=== PATIENT | male | born 1955 | race Caucasian/White ===

== ENCOUNTER → 2016-08-04 | Outpatient (REF) | payer MEDICARE ==
[~2016-08-04] MED LIST: /GLIP10TAB PO; /LINE60TA PO; /METO25TAB PO; /PRAV20TA PO; AMOX875T19 PO; AQUAOI TOP; ASPI1TAB PO; ASPI81TA7 PO; BACT800T5 PO; CEFD1CAP8 PO; DOCU10ELUD PO; FENT10PA TD; FENT50DI21 TD; FISH1000 PO; FISH1200 PO; GABA-279 PO; GABA400C PO; GABA600T PO; GABA800T PO; GLIP10TA58 PO; HUMA100I SC; HYDR-3713 PO; INSUHUMDS SC; INSULANT SC; INVA1INJ IV; KEFL500C7 PO; LEVO500T PO; LIDO4CRE2 TOP; LISI10TA4 PO; LISI5TAB PO; LORTTAB5 PO; METF1000 PO; METO25TAB PO; NIAC1TAB5 PO; NIAS1000 PO; NORC5TAB PO; OXYC60TA8 PO; PERCOCET PO; PRAV1TAB39 PO; SENO8.6T9 PO; TEFL600I IV; TRAV0.00 OU; TRAV04OPD OU; TRIA0.022 TOP; TRIL135C PO; VICOBULK PO; VITMTA PO; niaspan PO
== END ==
LOC: M LAB REF 16:35
PROVIDERS: ATTEND Surgery
DX: C44.519 Basal cell carcinoma of skin of other part of trunk (principal)

== ENCOUNTER → 2016-08-22 | Outpatient (REF) | payer MEDICARE | LOC: M LAB REF 16:21 | PROVIDERS: ATTEND Surgery | DX: E11.621 Type 2 diabetes mellitus with foot ulcer (principal) ==

== ENCOUNTER → 2016-09-26 | Outpatient (CLI) | payer MEDICARE ==
--- NOTE | 2016-09-29 23:52 | ECWPNPC ---
PATIENT NAME: DIANA OLIVERA : 1955 GENDER: MALE VISIT DATE: 09/26/2016 DISCHARGE DATE: 09/26/16 1452 VISIT LOCKED DATE TIME: PHYSICIAN: MARY MATA RESOURCE: MARY MATA REASON FOR APPOINTMENT 1. CHRONIC PAIN HISTORY OF PRESENT ILLNESS NEW PATIENT CONSULT: WHEN DID YOUR PAIN FIRST START? . BRIEFLY DESCRIBE HOW YOUR PAIN STARTED? . HOW DOES YOUR PAIN CHANGE WITH TIME? . DOES YOUR PAIN AWAKEN YOU FROM SLEEP? . HOW MANY HOURS OF SLEEP DO YOU NORMALLY GET? . ANY DIAGNOSTIC TESTING? . FACILITY WHERE TESTS WERE DONE? ____. PAIN TREATMENT TREATMENT YES CANCER HAVE YOU EVER HAD ANY TYPE OF CANCER?NO NO. PAIN SCREENING: PATIENT HAS A COMPLAINT OF ACUTE OR CHRONIC PAIN YES FALL RISK SCREENING: SCREENING :NO FALLS IN THE PAST YEAR FLEMING INVENTORY: QUESTIONNAIRE ASSESSEDTBD SCORE VALUE CALCULATED TBD TODAY'S VISIT: NOTES: PT REFFERREDBY DR DOM ESPINOSA FOR EVALUATION AND TREATMENT OF CHRONIC PAIN. HAS BEEN ON DURAGESIC PATCH FOR 10-15 YEARS. AREAS OF PAIN ARE LEFT HIP, BOTH LOWER EXTREMITIES FROM OPEN WOUNDS FROM DERMATITIS. LEFT HIP IS FUSED IN OUTWARD POSITION. IS HAVING ANTERIOR NECK/CHEST WALL PAIN AND BOTH HANDS. HAS OPEN WOUND IN LEFT KNEE. HAD PREVIOUSLY BEEN ON OXYCONTIN AND HYDROCODONE AND FENTANYL 100MCG/72 HOURS. . MEDS HAVE BEEN WEANED AND CAN NO FUNCTION BEFORE.HAD PREVIOUSLY SEEN DR MAYA FOR HIS HIP WHO WANTED ADDITIONAL FILMS WHICH WERE NOT APROVED. HAS BEEN FOLLOWING WITH DR HOLGUIN IN [facility] FOR VASCULAR ISSUES. NEEDS ANOTHER STENT ON LEFT. PAIN MEDS WERE DECREASED IN [place] DUE TO INSURANCE ISSUES. RATES PAIN TODAY 9/10.DESCRIBES PAIN CONSTANT , ACHING, BURNING, TENDER AND SORE WITH INTERRITANT SHARP AND STABBING PAIN PARTICULARLY IN LEFT LEG. BRINGS PHOTOS OF HIS LEG WOUNDS TODAY AND WE NOTE THATHIS LEFT LEFT DRESSING IS SATURATED WITH SEROUS DRAINAGE.. CURRENT MEDICATIONS TAKING DURAGESIC-100 100 MCG/HR PATCH 72 HOUR 1 PATCH TO SKIN TRANSDERMAL TAKING TRILIPIX 135 MG CAPSULE DELAYED RELEASE 1 CAPSULE ORALLY ONCE A DAY TAKING TRAVATAN Z 0.004 % SOLUTION 1 DROP INTO AFFECTED EYE IN THE EVENING OPHTHALMIC ONCE A DAY TAKING STOOL SOFTENER 100 MG CAPSULE 1 CAPSULE NEEDED ORALLY ONCE A DAY TAKING FISH OIL 1200 MG CAPSULE 1 CAPSULE ORALLY ONCE A DAY TAKING GABAPENTIN 800 MG TABLET 1 TABLET ORALLY THREE TIMES A DAY TAKING PRAVACHOL 20 20 MG TABLET ORAL DAILY TAKING LISINOPRIL 10 10 MG TABLET 1 TABLET ORAL DAILY TAKING METOPROLOL TARTRATE 25 MG TABLET 1 TABLET WITH FOOD ORALLY TWICE A DAY TAKING NIASPAN ER 1000 MG 1 TAB ORAL DAILY TAKING MULTIVITAMINS 1 OTC DIRECTED ORALLY DAILY, NOTES: NOT TAKING TAKING SANTYL 250 UNIT/GM OINTMENT 1 APPLICATION TO AFFECTED AREA EXTERNALLY ONCE A DAY TAKING LIDOCAINE 4 % CREAM DIRECTED EXTERNALLY TWICE DAILY TAKING AQUAPHOR STANDARD OINTMENT DIRECTED EXTERNALLY BID, NOTES: NOT TAKING TAKING GLIPIZIDE XL 10 MG TABLET EXTENDED RELEASE 24 HOUR 1 TABLET ORALLY TWICE DAILY TAKING METFORMIN HCL 1000 MG TABLET 2 TABS ORALLY TWICE A DAY TAKING LANTUS 100 UNIT/ML SOLUTION 80 UNITS SUBCUTANEOUS TWICE DAILY, DOSED TO BS READINGS TAKING HUMALOG 100 UNIT/ML SOLUTION 12 UNITS SUBCUTANEOUS S/S COVERAGE, NEEDED TAKING ASPIR-81 81 MG TABLET DELAYED RELEASE 1 TABLET ORALLY TWICE A DAY TAKING LIDOCAINE 4 % CREAM DIRECTED EXTERNALLY TAKING OXYCODONE HCL 10 MG TABLET 1 TABLET NEEDED ORALLY TWICE DAILY DISCONTINUED FLUOCINONIDE 0.05 % OINTMENT DIRECTED EXTERNALLY DAILY DISCONTINUED CEFDINIR 300 MG CAPSULE 1 CAPSULE ORALLY EVERY 12 HRS DISCONTINUED HYDROCODONE-ACETAMINOPHEN 5-325 MG TABLET 1 TABLET NEEDED ORALLY THREE TIMES DAILY DISCONTINUED CLOBETASOL PROPIONATE 0.05 % SOLUTION 1 APPLICATION TO SCALP EXTERNALLY ONCE A DAY DISCONTINUED FLUOCINOLONE ACETONIDE 0.025 % OINTMENT 1 APPLICATION TO AFFECTED AREA NEEDED EXTERNALLY ONCE DAILY, TAPERING TO EVERY OTHER DAY, NOTES: NOT TAKING DISCONTINUED OXYCONTIN 60 MG TABLET ER 12 HOUR ABUSE-DETERRENT 1 TABLET ORALLY EVERY 12 HRS MEDICATION LIST REVIEWED AND RECONCILED WITH THE PATIENT PAST MEDICAL HISTORY INSULIN-DEPENDENT DIABETES UNCONTROLLED LEFT FOOT OSTEOMYELITIS WITH GANGRENE CULTURE POSITIVE FOR MRSA AND ESCHERICHIA COLI HYPERTENSION HYPERCHOLESTEROLEMIA TOBACCO ABUSE GLAUCOMA 10/02/2012 OSTEOMYELITIS OF LEFT GREAT TOE STATUS POST AMPUTATION DISCHARGED HOME ON 10/08 WITH DOXYCYCLINE FOR 10 DAYS CORONARY ARTERY DISEASE WITH STENT PLACEMENT 2001 [facility] / DR RAGLAND SLEEP APNEA OSTEOARTHRITIS LOW TESTOSTERONE DEGENERATIVE HIP DISEASE STENTS PLACED DERMATITIS HLA B27 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 SURGICAL HISTORY MELANOMA LEFT EYELID 1998 RIGHT SHOULDER ROTATOR CUFF REPAIR 1998 CARDIAC CATHERTIZATION, STENT PLACEMENT 2001 C-6 CORPECTOMY AND FUSION C-5, C-6 WITH FIBULAR STRUT GRAFT AND IN ANT-CER ANTERIOR CERVICAL PLATE 2002 LEFT FOOT, DIGITS 4, 5 2010 AMPUTATION LEFT FOOT, GREAT TOE 10/02/2012 LEFT FOOT BONE DEBRIDEMENT 12/19/2012 STENTS PLACED RIGHT COMMON AND EXTERNAL ILIAC, LEFT COMMON AND EXTERNAL ILIAC 02/09/2016 FAMILY HISTORY FATHER: , BRAIN TUMOR, LUNG CANCER BRAIN TUMOR, LUNG CANCER MOTHER: ALIVE 78 YRS SIBLINGS: 2 BROTHERS - MVA & DROWNING 2 BROTHER(S) , 2 SISTER(S) . 1DAUGHTER(S) - HEALTHY. . NO KNOWN FAMILY HISTORY OF ANY UROLOGICALLY RELATED DISEASES/CANCERS. FATHER- CARDIAC DISEASE, PULMONARY DISEASE, BRAIN CA, DM. SOCIAL HISTORY GENERAL: TOBACCO USE ARE YOU A:NONSMOKER ARE YOU A:CURRENT SMOKER HOW MANY CIGARETTES A DAY DO YOU SMOKE?6-10 HOW SOON AFTER YOU WAKE UP DO YOU SMOKE YOUR FIRST CIGARETTE?31-60 MIN HOW OFTEN DO YOU SMOKE CIGARETTES?EVERY DAY PATIENT COUNSELED ON THE DANGERS OF TOBACCO USE AND URGED TO QUIT:09/26/2016 ARE YOU INTERESTED IN QUITTING?NOT READY TO QUIT COUNSELED THE PATIENT ON SMOKING EFFECTS, EDUCATION [id number]/13/2017 BMI CARE GOAL FOLLOW-UP ABOVE NORMAL BMI FOLLOW-UPDIETARY MANAGEMENT EDUCATION, GUIDANCE, AND COUNSELING ALCOHOL SCREENING POINTS0 INTERPRETATIONNEGATIVE RECREATIONAL DRUG USE DRUG USE?NO CAFFEINE CAFFEINE USE?NO OCCUPATION: DISABLED. DIET: CARBOHYDRATE CONTROLLED, NO CONCENTRATED SWEETS., NO ADDED SALT. EXERCISE: NO REGULAR EXERCISE. MARITAL STATUS: . OTHERS AT HOME: SPOUSE. PETS: 1 CAT. SIKHISM: NO CHRISTIANITY BELIEFS THAT WOULD IMPACT HEALTH CARE. LANGUAGE: SAMI. LEARNING BARRIERS / SPECIAL NEEDS CHANGE FROM LAST VISIT?NO BARRIERS TO LEARNING?NO HEARING IMPAIRED?NO VISION IMPAIRED?YES :CORRECTIVE LENSES COGNITIVELY IMPAIRED?NO READINESS TO LEARN?YES LEARNING PREFERENCES?NO LEARNING CAPABILITIES PRESENT?YES EMOTIONAL BARRIERS?NO SPECIAL DEVICES?YES : PT USES A CANE AT ALL TIMES. NEEDS ASSISTANCE WITH HOME CARE.HAS HEARING AIDS. HAS NO TEETH. PSYCHOLOGICAL HX TREATMENTNO PAIN CLINIC PFS, CLERGY, PUBLIC HEALTH REFERRALS PFS REFERRAL NEEDED?NO CLERGY REFERRAL NEEDED?NO PUBLIC HEALTH REFERRAL NEEDED?NO WAS THE PROVIDER NOTIFIED OF ANY PERTINENT INFO?NO PATIENT: ____. ADVANCED DIRECTIVES HEALTH CARE PROXY?NO HCP PAPERS GIVEN TO PATIENT POWER OF GEOTECHNICAL LABORATORY TECHNICIAN?NO TRAVEL OUTSIDE US: NO TRAVEL OUTSIDE OF US IN THE LAST 21 DAYS. HOUSING: OWNS HOME. DOMESTIC VIOLENCE: NONE. HOSPITALIZATION/MAJOR DIAGNOSTIC PROCEDURE PANCREATITIS 2009 LEFT FOOT INFECTION 09/30/2012 LEFT FOOT INFECTION 01/16/2013 LEFT FOOT INFECTION 02/06/13 BLOOD TRANSFUSION 02/13/13 LEFT LEG INFECTION 11/06/15 LEG SWELLING JANUARY 2016 CELLULITIS AND PAIN 04/06/16 - 04/08/16 REVIEW OF SYSTEMS CONSTITUTIONAL: ANY CHANGE IN YOUR MEDICAL CONDITION? NO . CHILLS NO . FEVER NO . INFECTION: DO YOU HAVE NEW INFECTIONS? NO . DO YOU HAVE HISTORY OF MRSA? YES . MUSCULOSKELETAL: ANY NEW PATTERNS OF PAIN OR NUMBNESS? NO BUT DOES HAVE PESITANT NUMBNESS AND TINGING IN BOTH UPPER AND LOWER EXTREMITIES . SYTEMIC LUPUS NO . GASTROENTEROLOGY: GENERAL VERY FIRM ABD WALL - ABD HERNIA . ANY NEW CHANGE IN BOWEL CONTROL? NO . BARRETTS ESOPHAGUS NO . CIRRHOSIS NO . HEPATITIS NO . LIVER FAILURE NO . ACID REFLUX NO . UNEXPLAINED WEIGHT LOSS NO . GENITOURINARY: ANY NEW CHANGE IN BLADDER CONTROL? NO . IS THERE A CHANCE YOU COULD BE ? NO . HEMATOLOGY/LYMPH: DO YOU TAKE ANY BLOOD THINNERS? (FOR EXAMPLE- COUMADIN, PLAVIX, AGGRENOX, PLATEL, PRADAXA, OR XARELTO) NO . WHEN WAS YOUR LAST DOSE? DATE: TIME: . LOW PLATELET COUNT NO . SICKLE CELL DISEASE NO . VON WILLIEBRANDS NO . FACTOR V LEIDEN NO . THALLASEMIA NO . ANEMIA YES, HAD BLOOD TRANSFUSION POST OP . EASY BRUISING NO . NEUROLOGY: HAVE YOU FALLEN IN THE PAST 6 MONTHS? YES, USES CANE AT ALL TIMES. . ANY NEW EXTREMITY NUMBNESS OR WEAKNESS? YES, LOWER EXTREMITIES AND HANDS . HEAD INJURY NO . DEMENTIA NO . CEREBRAL PALSY NO . MULTIPLE SCLEROSIS NO . DIZZINESS NO . HEADACHE NO . STROKES NO . VERTIGO NO . CARDIOLOGY: DO YOU HAVE A PACEMAKER OR DEFIBRILLATOR? NO . ANGINA NO . HEART ATTACK NO . HEART SURGERY YES, HAS CARDIAC STENTS AND GROIN STENTS . CONGESTIVE HEART FAILURE/FLUID OVERLOAD NO . CHEST PAIN NO . HIGH BLOOD PRESSURE ON MEDICATION(S) . IRREGULAR HEART BEAT NO . RESPIRATORY: HAVE YOU BEEN SICK IN THE PAST WEEK? NO . FEVER NO . FLU LIKE SYMPTOMS? NO . CPAP NO, BUT HAS CLAUDIA . BYPAP NO . ASTHMA NO . EMPHYSEMA NO . CHRONIC LUNG DISEASES NO . SHORTNESS OF BREATH ON EXERTION NO . DO YOU USE ANY TYPE OF TOBACCO (SMOKE, SMOKELESS, CHEW)? NO . COUGH NO . SNORING NO . INTEGUMENTARY: DO YOU HAVE ANY RASHES OR OPEN SORES? YES, HAS OPEN WOUNDS ON BOTH LEGS WRAPPED AT PRESENT TIME SEES DR WHALEN. . ALLERGIC/IMMUNO: ARE YOU ALLERGIC TO SHELLFISH OR IV DYE? NO . ANY NEW ALLERGIES? NO . PSYCHIATRIC: DO YOU HAVE THOUGHTS OF HURTING YOURSELF OR SOMEONE ELSE? NO . ARE YOU ABUSED, NEGLECTED, OR IN AN UNSAFE ENVIRONMENT? NO . ENDOCRINOLOGY: ARE YOU DIABETIC? YES, INSULIN DEPENDANT BS LOW IN AM, 200'S ABOUT 1/WEEK.&NBSP;. THYROID DISORDER &NBSP;&NBSP; NO&NBSP;. OTHER: DO YOU NEED ANY PRESCRIPTIONS? NO . IF YES, PLEASE LIST: ____ . ANY NEW PROBLEMS WITH YOUR MEDICATIONS? NO . WHEN DID YOU LAST EAT? ____ . WHEN DID YOU LAST DRINK? ____ . WHAT DID YOU LAST DRINK? ____ . NAME OF PERSON DRIVING YOU HOME? ____ . DO YOU HAVE ANY OTHER QUESTIONS OR CONCERNS YES, CONCERNED WITH COSTS OF MEDICATIONS. WOULD LIKE TO HAVE [facility] PATIENT'S ASSISTANCE PROGRAM INFORMATION. PAPERS WERE GIVEN PATIENT.&NBSP;. PSYCHOLOGY: DEPRESSION DOES NOT FEEL DEPRESSED AND IS BEGINNING TO HAVE HELP FROM OTHERS . REVIEWED BY: PROVIDER: MARY MATA FIREPROOF DOOR MAKER . VITAL SIGNS WT 230.8 LBS, HT 71 IN, BMI 32.19 INDEX, BP 138/80 MANUAL, HR 109 /MIN, RR 16 /MIN, TEMP 96.6 F, OXYGEN SAT % 98, NA INITIALS TL 1314, REVIEWED BY: CM. EXAMINATION GENERAL EXAMINATION: GENERAL APPEARANCE:CHRONICALLY ILL APPEARING. PSYCHALERT , ORIENTED X 3 , APPROPRIATE MOOD AND AFFECT , GOOD EYE CONTACT. HEENT:NORMOCEPHALIC, NO LYMPHADENOPATHY, NO THYROMEGY. FULL KIRK. LUNGS:CLEAR TO AUSCULTATION BILATERALLY, SOMEWHAT DECREAASED AT BASES. HEART:HEART RATE REGULAR, 1/6 MURMUR HEARD OVER LEFT CHEST WALL., NO CAROTID BRUIT. ABDOMEN:THIN SKINNED, TOUGH FIBROUS TISSUE NOTED. , NOT TENDER, BOWEL SOUNDS: NORMOACTIVE. MUSCULOSKELETAL:POINT TENDERNESS OVER LEFT SACRUM. NO PARTICULAR PAIN OVER TROCANTERS. LEFT HIP VERY STIFF, POOR MOBILITY. POOR QUAD FLEXION. DRESSING INTACT OVER BILATERAL LOWER EXTREMITIES, SATURATED WITH CLEAR FLIUD. NO ODOR. ABLE TO MOVE INDEPENDANTLY FROM WHEELCHAIR TO EXAM TABLE - VERY POOR BALANCE. PERIPHERAL PULSES:UNABLE TO PALPATE. NEUROLOGIC EXAM:SIGNIFICANT LOSS OF SENSATION IN STOCKING/GLOVE FASHION OVER BILATERAL LOWER EXTREMITIES TO THE LEVELOF THE KNEE. 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 RECOMMEND DECREASE OF DURAGESIC TO 75MCG/3DAYS AND ADDITION OF ADJUNCTIVE MED SUCH CYMBALTA. RECOMMEND DECREASING THE DURAGESIC EVERY 2 WEEKS UNTIL DISCONTINUED. RECOMMEND USE OF CLONODINE 0.1MG Q 8 HRS FOR ANY WITHDRAWAL SYMPTOMS. PT STATES THAT HE IS WILLING TO WEAN ANS STOP THE OPIATES. I DID DISCUSS WITH HIM THAT THE OPIATES MAY BE INCREASING HIS DEGENRATIVE CHANGES AT THE JOINTS AND MAY BE SLOWING HIS HEALING. FURTHER EVAL AND TREATMENT BY HIS VASCULAR SURGEON MAY BE ESSENTIAL FOR WOUND HEALING TO OCCUR. ONCE THIS HAPPENS HE MAY BE A GOOD CANDIDATE FOR A DORSAL COLUMN STIMULATOR FOR NONPHARMOCOLOGY CONTROL OF HIS PERSISTANT NEUROPATHIC PAIN. , FALLS CARE PLAN: 1. RECOMMEND REMOVING ALL THROW RUGS. 2. RECOMMEND NIGHT LIGHTS 3. RECOMMEND WEARING RUBBER SOLED SHOES AND TO NOT GO BAREFOOT. 4.. ADVISED TO CHANGE POSITION SLOWLY FROM SUPINE TO STANDING TO AVOID DIZZINESS. 5. ADVISED TO USE ASSISTIVE DEVICE SUCH CANE OR WALKER 6. USE LIFELINE SERVICES OR KEEP PORTABLE PHONE READILY AVAILABLE, # 226 TOBACCO USE SCREENING/INTERVENTION: PATIENT CURRENTLY USED TOBACCO. WAS OFFERED SMOKING CESSATION FOR GUIDANCE IN QUITTING THROUGH THE IDS QUITS PROGRAM AND THE SAMARATIN CESSATION PROGRAM. , #128 - SCREENING BMI AND F/U PLAN IN : BMI ABOVE NORMAL TODAY. DISCUSSED WITH PATIENT NUTRITIONAL FOOD CHOICES TO ASSIST WITH WEIGHT LOSS. RECCOMMENDED REDUCING SALT, SUGAR, SODA INTAKE. RECOMMEND INCREASE ACTIVITY TO INCLUDE WALKING AND WEIGHT LIFTING ON A REGULAR BASIS. CLINICAL NOTES: ISTOP REGISTRY REVIEWED AND DEMNOSTRATES COMPLLIANCE. BRINGS IN MEDICATIONS WHICH IS APPROPRIATE FOR WHAT WAS DISPENSED. RECENT URINE TOXICOLOGY REVIEWED. NO UNAUTHORIZED MEDICATIONS. NO ILLICIT SUBSTANCES AND PRESCRIBED MEDICATIONS WERE PRESENT. PROCEDURE CODES FA211 ESTABILISHED PATIENT [facility] FACILITY CHARGE G8783 BP SCR PRFRM RCMDD DEFIND SCR INTVL G8730 PAIN ASSESS POS TOOL F/U PLAN DOC 3016F PT SCRND UNHLTHY OH USE 1124F ACP DISCUSS-NO DSCNMKR DOCD 0518F FALL PLAN OF CARE DOCD G8427 DOC MEDS VERIFIED W/PT OR RE G8417 BMI >=30 CALCUATE W/FOLLOWUP 3288F FALL RISK ASSESSMENT DOCD 4004F PT TOBACCO SCREEN RCVD TLK DISPOSITION & COMMUNICATION FOLLOW UP CALL IF APPOINTMENT NEEDED ELECTRONICALLY SIGNED BY BEBETO GORE ON 09/29/2016 AT 08:34 PM EDT DISCLAIMER : THIS IS A VISIT SUMMARY EXTRACTED FROM THE [employer] CHART. IT IS NOT A COPY OF THE [employer] PROGRESS NOTE. MEEK
== END ==
LOC: M PAIN 13:20
PROVIDERS: ATTEND Nurse Practitioner Family
DX: G89.29 Other chronic pain (principal); M25.552 Pain in left hip; M15.0 Primary generalized (osteo)arthritis; E11.42 Type 2 diabetes mellitus with diabetic polyneuropathy; I10 Essential (primary) hypertension; E78.00 Pure hypercholesterolemia, unspecified; Z89.412 Acquired absence of left great toe; F17.200 Nicotine dependence, unspecified, uncomplicated; M14.672 Charcot's joint, left ankle and foot; G47.30 Sleep apnea, unspecified; Z79.4 Long term (current) use of insulin; Z79.84 Long term (current) use of oral hypoglycemic drugs; Z79.899 Other long term (current) drug therapy; Z86.14 Personal history of Methicillin resistant Staphylococcus aureus infection; Z95.5 Presence of coronary angioplasty implant and graft

== ENCOUNTER → 2016-11-25 | Outpatient (CLI) | payer MEDICARE ==
[~2016-11-25] MED LIST changes: +TRIL135C6 PO
--- NOTE | 2016-12-12 23:38 | ECWPNPC ---
PATIENT NAME: DIANA OLIVERA : 1955 GENDER: MALE VISIT DATE: 11/25/2016 DISCHARGE DATE: 11/25/16 1605 VISIT LOCKED DATE TIME: PHYSICIAN: MARY MATA RESOURCE: MARY MATA REASON FOR APPOINTMENT 1. MEDS HISTORY OF PRESENT ILLNESS HISTORY OF PRESENT ILLNESS: PAIN THE PATIENT DESCRIBES THE PAIN... FALL RISK SCREENING: SCREENING :NO FALLS IN THE PAST YEAR TODAY'S VISIT: NOTES: CURRENTLY [facility]AVING [facility]. HAS HAD SOME EXTENSIVE DEBRIDING OF THE LEFT FOOT/ANKLE AND IS STILL LEAKING SIGN FLUID FROM WOUNDS. PAIN AREAS ARE LEFT HIP, LEGWOUNDS AND LEFT KNEE. HAS SEEN VASULAR SURGEON AND STENT PLACED TO RIGHT FEMORAL ARTERY AND BLOOD FLOW IS IMPROVED. REPORTS HAS MARKED INCREASE IN PAIN IN EARLY AM AND IT IS VERY HARD TO GET OUT OF BED AND BEGIN AMBULATING.. CURRENT MEDICATIONS TAKING DURAGESIC-100 100 MCG/HR PATCH 72 HOUR 1 PATCH TO SKIN TRANSDERMAL TAKING TRAVATAN Z 0.004 % SOLUTION 1 DROP INTO AFFECTED EYE IN THE EVENING OPHTHALMIC ONCE A DAY TAKING STOOL SOFTENER 100 MG CAPSULE 1 CAPSULE NEEDED ORALLY ONCE A DAY TAKING FISH OIL 1200 MG CAPSULE 1 CAPSULE ORALLY ONCE A DAY TAKING GABAPENTIN 800 MG TABLET 1 TABLET ORALLY THREE TIMES A DAY TAKING PRAVACHOL 20 20 MG TABLET ORAL DAILY TAKING LISINOPRIL 10 10 MG TABLET 1 TABLET ORAL DAILY TAKING METOPROLOL TARTRATE 25 MG TABLET 1 TABLET WITH FOOD ORALLY TWICE A DAY TAKING MULTIVITAMINS 1 OTC DIRECTED ORALLY DAILY, NOTES: NOT TAKING TAKING SANTYL 250 UNIT/GM OINTMENT 1 APPLICATION TO AFFECTED AREA EXTERNALLY ONCE A DAY TAKING LIDOCAINE 4 % CREAM DIRECTED EXTERNALLY TWICE DAILY TAKING AQUAPHOR STANDARD OINTMENT DIRECTED EXTERNALLY BID, NOTES: NOT TAKING TAKING GLIPIZIDE XL 10 MG TABLET EXTENDED RELEASE 24 HOUR 1 TABLET ORALLY TWICE DAILY TAKING METFORMIN HCL 1000 MG TABLET 2 TABS ORALLY TWICE A DAY TAKING LANTUS 100 UNIT/ML SOLUTION 80 UNITS SUBCUTANEOUS TWICE DAILY, DOSED TO BS READINGS TAKING HUMALOG 100 UNIT/ML SOLUTION 12 UNITS SUBCUTANEOUS S/S COVERAGE, NEEDED TAKING ASPIR-81 81 MG TABLET DELAYED RELEASE 1 TABLET ORALLY TWICE A DAY TAKING LIDOCAINE 4 % CREAM DIRECTED EXTERNALLY TAKING OXYCODONE HCL 10 MG TABLET 1 TABLET NEEDED ORALLY TWICE DAILY TAKING NIACOR 500 MG TABLET 1 TABLET AFTER MEALS ORALLY TWICE A DAY NOT-TAKING TRILIPIX 135 MG CAPSULE DELAYED RELEASE 1 CAPSULE ORALLY ONCE A DAY NOT-TAKING NIASPAN ER 1000 MG 1 TAB ORAL DAILY MEDICATION LIST REVIEWED AND RECONCILED WITH THE PATIENT PAST MEDICAL HISTORY INSULIN-DEPENDENT DIABETES UNCONTROLLED LEFT FOOT OSTEOMYELITIS WITH GANGRENE CULTURE POSITIVE FOR MRSA AND ESCHERICHIA COLI HYPERTENSION HYPERCHOLESTEROLEMIA TOBACCO ABUSE GLAUCOMA 10/02/2012 OSTEOMYELITIS OF LEFT GREAT TOE STATUS POST AMPUTATION DISCHARGED HOME ON 10/08 WITH DOXYCYCLINE FOR 10 DAYS CORONARY ARTERY DISEASE WITH STENT PLACEMENT 2001 [facility] / DR RAGLAND SLEEP APNEA OSTEOARTHRITIS LOW TESTOSTERONE DEGENERATIVE HIP DISEASE STENTS PLACED DERMATITIS HLA B27 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 SURGICAL HISTORY MELANOMA LEFT EYELID 1998 RIGHT SHOULDER ROTATOR CUFF REPAIR 1998 CARDIAC CATHERTIZATION, STENT PLACEMENT 2001 C-6 CORPECTOMY AND FUSION C-5, C-6 WITH FIBULAR STRUT GRAFT AND IN ANT-CER ANTERIOR CERVICAL PLATE 2002 LEFT FOOT, DIGITS 4, 5 2010 AMPUTATION LEFT FOOT, GREAT TOE 10/02/2012 LEFT FOOT BONE DEBRIDEMENT 12/19/2012 STENTS PLACED RIGHT COMMON AND EXTERNAL ILIAC, LEFT COMMON AND EXTERNAL ILIAC 02/09/2016 HOSPITALIZATION/MAJOR DIAGNOSTIC PROCEDURE PANCREATITIS 2008 LEFT FOOT INFECTION 09/30/2012 LEFT FOOT INFECTION 01/16/2013 LEFT FOOT INFECTION 02/06/13 BLOOD TRANSFUSION 02/13/13 LEFT LEG INFECTION 11/06/15 LEG SWELLING JANUARY 2016 CELLULITIS AND PAIN 04/06/16 - 04/08/16 REVIEW OF SYSTEMS CONSTITUTIONAL: ANY CHANGE IN YOUR MEDICAL CONDITION? YES, STARTED CUTTING TENDON LEFT LOWER LEG . CHILLS NO . FEVER NO . INFECTION: DO YOU HAVE NEW INFECTIONS? NO . DO YOU HAVE HISTORY OF MRSA? NO . MUSCULOSKELETAL: ANY NEW PATTERNS OF PAIN OR NUMBNESS? NO . GASTROENTEROLOGY: ANY NEW CHANGE IN BOWEL CONTROL? NO . GENITOURINARY: ANY NEW CHANGE IN BLADDER CONTROL? NO . IS THERE A CHANCE YOU COULD BE ? NO . HEMATOLOGY/LYMPH: DO YOU TAKE ANY BLOOD THINNERS? (FOR EXAMPLE- COUMADIN, PLAVIX, AGGRENOX, PLATEL, PRADAXA, OR XARELTO) NO . WHEN WAS YOUR LAST DOSE? DATE: TIME: . NEUROLOGY: HAVE YOU FALLEN IN THE PAST 6 MONTHS? NO . ANY NEW EXTREMITY NUMBNESS OR WEAKNESS? NO . CARDIOLOGY: DO YOU HAVE A PACEMAKER OR DEFIBRILLATOR? NO . CHEST PAIN PATIENT DENIES . RESPIRATORY: HAVE YOU BEEN SICK IN THE PAST WEEK? NO . FEVER NO . FLU LIKE SYMPTOMS? NO . SHORTNESS OF BREATH ON EXERTION YES . DO YOU USE ANY TYPE OF TOBACCO (SMOKE, SMOKELESS, CHEW)? SMOKING 1-2 PACKS PER DAY. OBTAINS TOBACCO FROM THE RESERVATION. IS CONSIDERING QUITING. . COUGH NO . INTEGUMENTARY: DO YOU HAVE ANY RASHES OR OPEN SORES? YES, LEFT LEG . ALLERGIC/IMMUNO: ARE YOU ALLERGIC TO SHELLFISH OR IV DYE? NO . ANY NEW ALLERGIES? NO . PSYCHIATRIC: DO YOU HAVE THOUGHTS OF HURTING YOURSELF OR SOMEONE ELSE? NO . ARE YOU ABUSED, NEGLECTED, OR IN AN UNSAFE ENVIRONMENT? NO . ENDOCRINOLOGY: ARE YOU DIABETIC? YES . OTHER: DO YOU NEED ANY PRESCRIPTIONS? YES . IF YES, PLEASE LIST: PAIN CONTROL . ANY NEW PROBLEMS WITH YOUR MEDICATIONS? NO . WHEN DID YOU LAST EAT? ____ . WHEN DID YOU LAST DRINK? ____ . WHAT DID YOU LAST DRINK? ____ . NAME OF PERSON DRIVING YOU HOME? ____ . DO YOU HAVE ANY OTHER QUESTIONS OR CONCERNS NO . REVIEWED BY: PROVIDER: MARY GUZMÁN . VITAL SIGNS WT 230 LBS, HT 71 IN, BMI 32.07 INDEX, BP 117/63 MM HG, HR 68 /MIN, RR 18 /MIN, TEMP 99.8 F, OXYGEN SAT % 90%, NA INITIALS 15:06, REVIEWED BY: NL. EXAMINATION GENERAL EXAMINATION: GENERAL APPEARANCE:STANDS THROUGHOUT APPOINTMENT. PSYCHALERT , ORIENTED X 3 , APPROPRIATE MOOD AND AFFECT, SPEACH MONOTONE . LUNGS:CLEAR TO AUSCULTATION BILATERALLY. HEART:HEART RATE REGULAR. ABDOMEN:TOUGH ABD SURFACE. BOWEL SOUNDS PRESENT. MUSCULOSKELETAL:LEFT LEG ROTATED OUTWARD AT HIP. LEG STIFF. LEFT LEG DRESSING IN PLACE, DAMP WITH SEROUS FLUID. TENDER WITH PALPATION OVER LOW BACK. GAIT ANTALGIC. . ASSESSMENTS DIABETIC PERIPHERAL NEUROPATHY ASSOCIATED WITH TYPE 2 DIABETES MELLITUS - E11.42 (PRIMARY) HIP PAIN, LEFT - M25.552 PRIMARY OSTEOARTHRITIS INVOLVING MULTIPLE JOINTS - M15.0 CHRONIC PRESCRIPTION OPIATE USE - Z79.891 TREATMENT DIABETIC PERIPHERAL NEUROPATHY ASSOCIATED WITH TYPE 2 DIABETES MELLITUS STOP OXYCODONE HCL TABLET, 10 MG, 1 TABLET NEEDED, ORALLY, TWICE DAILY REFILL DURAGESIC-100 PATCH 72 HOUR, 100 MCG/HR, 1 PATCH TO SKIN, TRANSDERMAL, APPLY 1 PATCH Q 72 HRS MDD=1, 30 DAY(S), 10, REFILLS 0 START HYDROMORPHONE HCL TABLET, 2 MG, 1 TABLET NEEDED, ORALLY, EVERY 6 HRS PRN PAIN MDD=4, 30 DAY(S), 100, REFILLS 0 NOTES: NARCOTIC AGREEMENT AND UTOX TODAY. USE HYDROMORPHONE EVERY 6-8 HRS MAX 3 PER DAY . MAY USE EXTRA TAB ON DAYS DR WHALEN DOES TREATMENT.WORK ON SMOKING CESSATION - LOOK INTO A ELECTRONIC CIGARETTE. PT IS INTERESTED IN WORKING ON WEANING OPIODS. WILL MAKE CHANGE TODAY TO HYDROMORPHONE. AT NEXT VISIT WILL DECREASE FENTANYL BY 12 MEQ AND BEGIN A WEAN. DISCUSSED IMPRTANCE OF BRING ALL MEDS TO VISITS AND OF COMING TO APPOINTMENT. WE CAN NOT PRESCRIBE I WE DO NOT SEE HIM. 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 CLINICAL NOTES: ISTOP REGISTRY REVIEWED AND DEMNOSTRATES COMPLLIANCE. PREVENTIVE MEDICINE REVIEWED NARFCOTIC AGREEMENT WITH PT AND FAMILY. PROCEDURE CODES FA211 ESTABILISHED PATIENT [facility] CHARGE [id number] PAIN ASSESS POS TOOL F/U PLAN DOC [id number] DOC MEDS VERIFIED W/PT OR RE DISPOSITION & COMMUNICATION FOLLOW UP 26-28 DAYS (REASON: MED MANAGEMENT) ELECTRONICALLY SIGNED BY BEBETO GORE ON 12/12/2016 AT 04:26 PM EDT DISCLAIMER : THIS IS A VISIT SUMMARY EXTRACTED FROM THE [employer] CHART. IT IS NOT A COPY OF THE [employer] PROGRESS NOTE. [place]
== END ==
LOC: M PAIN 15:00
PROVIDERS: ATTEND Nurse Practitioner Family
DX: G89.29 Other chronic pain (principal); E11.42 Type 2 diabetes mellitus with diabetic polyneuropathy; M16.10 Unilateral primary osteoarthritis, unspecified hip; I10 Essential (primary) hypertension; E78.00 Pure hypercholesterolemia, unspecified; M14.672 Charcot's joint, left ankle and foot; R06.02 Shortness of breath; F17.210 Nicotine dependence, cigarettes, uncomplicated; G47.30 Sleep apnea, unspecified; Z79.4 Long term (current) use of insulin; Z79.84 Long term (current) use of oral hypoglycemic drugs; Z79.899 Other long term (current) drug therapy; Z86.14 Personal history of Methicillin resistant Staphylococcus aureus infection

== ENCOUNTER → 2016-12-22 | Outpatient (CLI) | payer MEDICARE ==
[~2016-12-22] MED LIST changes: +CEFD300CAP PO; +DOXY100T2 PO; +FERR1TAB8 PO; +FISH120012 PO; -GLIP10TA58 PO; +GLIP1TAB11 PO; +KEFL500C17 PO; -KEFL500C7 PO; +METF10004 PO; +METO25TA4 PO; +NICO14PA TD; +OXYC10TA12 PO
--- NOTE | 2017-01-11 01:38 | ECWPNPC ---
PATIENT NAME: DIANA OLIVERA : 1955 GENDER: MALE VISIT DATE: 12/22/2016 DISCHARGE DATE: 12/22/16 1539 VISIT LOCKED DATE TIME: PHYSICIAN: MARY MATA RESOURCE: MARY MATA HISTORY OF PRESENT ILLNESS HISTORY OF PRESENT ILLNESS: PAIN THE PATIENT DESCRIBES THE PAIN... FALL RISK SCREENING: SCREENING :NO FALLS IN THE PAST YEAR TODAY'S VISIT: NOTES: NOT FEELING SO GOOD TODAY. HAVING SIGNIFICANT PAIN IN LEFT FORELEG WOUNDS. HAD RECENT DEBRIDEMENT THIS WEEK. RATES PAIN TODAY 7/10. DESCRIBES PAIN SHARP, BURNING, AND THROBBING. CURRENT MEDICATIONS TAKING TRAVATAN Z 0.004 % SOLUTION 1 DROP INTO AFFECTED EYE IN THE EVENING OPHTHALMIC ONCE A DAY TAKING STOOL SOFTENER 100 MG CAPSULE 1 CAPSULE NEEDED ORALLY ONCE A DAY TAKING FISH OIL 1200 MG CAPSULE 1 CAPSULE ORALLY ONCE A DAY TAKING GABAPENTIN 800 MG TABLET 1 TABLET ORALLY THREE TIMES A DAY TAKING PRAVACHOL 20 20 MG TABLET ORAL DAILY TAKING LISINOPRIL 10 10 MG TABLET 1 TABLET ORAL DAILY TAKING METOPROLOL TARTRATE 25 MG TABLET 1 TABLET WITH FOOD ORALLY TWICE A DAY TAKING MULTIVITAMINS 1 OTC DIRECTED ORALLY DAILY, NOTES: NOT TAKING TAKING AQUAPHOR STANDARD OINTMENT DIRECTED EXTERNALLY BID, NOTES: NOT TAKING TAKING GLIPIZIDE XL 10 MG TABLET EXTENDED RELEASE 24 HOUR 1 TABLET ORALLY TWICE DAILY TAKING METFORMIN HCL 1000 MG TABLET 2 TABS ORALLY TWICE A DAY TAKING LANTUS 100 UNIT/ML SOLUTION 80 UNITS SUBCUTANEOUS TWICE DAILY, DOSED TO BS READINGS TAKING HUMALOG 100 UNIT/ML SOLUTION 12 UNITS SUBCUTANEOUS S/S COVERAGE, NEEDED TAKING ASPIR-81 81 MG TABLET DELAYED RELEASE 1 TABLET ORALLY TWICE A DAY TAKING LIDOCAINE 4 % CREAM DIRECTED EXTERNALLY TAKING NIACOR 500 MG TABLET 2 TABLET2 AFTER MEALS ORALLY DAILY TAKING DURAGESIC-100 100 MCG/HR PATCH 72 HOUR 1 PATCH TO SKIN TRANSDERMAL APPLY 1 PATCH Q 72 HRS MDD=1 TAKING HYDROMORPHONE HCL 2 MG TABLET 1 TABLET NEEDED ORALLY EVERY 6 HRS PRN PAIN MDD=4 NOT-TAKING SANTYL 250 UNIT/GM OINTMENT 1 APPLICATION TO AFFECTED AREA EXTERNALLY ONCE A DAY NOT-TAKING TRILIPIX 135 MG CAPSULE DELAYED RELEASE 1 CAPSULE ORALLY ONCE A DAY NOT-TAKING NIASPAN ER 1000 MG 1 TAB ORAL DAILY DISCONTINUED LIDOCAINE 4 % CREAM DIRECTED EXTERNALLY TWICE DAILY DISCONTINUED DILAUDID 2 MG TABLET 1 TABLET NEEDED ORALLY EVERY 6 HRS MEDICATION LIST REVIEWED AND RECONCILED WITH THE PATIENT PAST MEDICAL HISTORY INSULIN-DEPENDENT DIABETES UNCONTROLLED LEFT FOOT OSTEOMYELITIS WITH GANGRENE CULTURE POSITIVE FOR MRSA AND ESCHERICHIA COLI HYPERTENSION HYPERCHOLESTEROLEMIA TOBACCO ABUSE GLAUCOMA 10/02/2012 OSTEOMYELITIS OF LEFT GREAT TOE STATUS POST AMPUTATION DISCHARGED HOME ON 10/08 WITH DOXYCYCLINE FOR 10 DAYS CORONARY ARTERY DISEASE WITH STENT PLACEMENT [address] / DR [place] SLEEP APNEA OSTEOARTHRITIS LOW TESTOSTERONE DEGENERATIVE HIP DISEASE STENTS PLACED DERMATITIS HLA B27 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 SOCIAL HISTORY GENERAL: TOBACCO USE ARE YOU A:CURRENT SMOKER HOW MANY CIGARETTES A DAY DO YOU SMOKE?6-10 HOW SOON AFTER YOU WAKE UP DO YOU SMOKE YOUR FIRST CIGARETTE?AFTER 60 MIN HOW OFTEN DO YOU SMOKE CIGARETTES?EVERY DAY PATIENT COUNSELED ON THE DANGERS OF TOBACCO USE AND URGED TO QUIT:12/22/2016 ARE YOU INTERESTED IN QUITTING?NOT READY TO QUIT COUNSELED THE PATIENT ON SMOKING EFFECTS, EDUCATION [id number]/08/2017 BMI CARE GOAL FOLLOW-UP ABOVE NORMAL BMI FOLLOW-UPDIETARY MANAGEMENT EDUCATION, GUIDANCE, AND COUNSELING ALCOHOL SCREENING DID YOU HAVE A DRINK CONTAINING ALCOHOL IN THE PAST YEAR?NO POINTS0 INTERPRETATIONNEGATIVE RECREATIONAL DRUG USE DENIES, DRUG USE? NO. CAFFEINE 2-5/DAY, CAFFEINE USE? NO . OCCUPATION: DISABLED. DIET: CARBOHYDRATE CONTROLLED, NO CONCENTRATED SWEETS., NO ADDED SALT. EXERCISE: NO REGULAR EXERCISE. MARITAL STATUS: . OTHERS AT HOME: SPOUSE. PETS: 1 CAT. ALEVISM NO EPISCOPAL BELIEFS THAT WOULD IMPACT HEALTH CARE. LANGUAGE [place] CIT[place]. LEARNING BARRIERS / SPECIAL NEEDS CHANGE FROM LAST VISIT?NO BARRIERS TO LEARNING?NO HEARING IMPAIRED?NO VISION IMPAIRED?YES :CORRECTIVE LENSES COGNITIVELY IMPAIRED?NO READINESS TO LEARN?YES LEARNING PREFERENCES?NO LEARNING CAPABILITIES PRESENT?YES EMOTIONAL BARRIERS?NO SPECIAL DEVICES?YES : PT USES A CANE AT ALL TIMES. NEEDS ASSISTANCE WITH HOME CARE.HAS HEARING AIDS. HAS NO TEETH. PSYCHOLOGICAL HX TREATMENTNO PAIN CLINIC PFS, CLERGY, PUBLIC HEALTH REFERRALS PFS REFERRAL NEEDED?NO CLERGY REFERRAL NEEDED?NO PUBLIC HEALTH REFERRAL NEEDED?NO WAS THE PROVIDER NOTIFIED OF ANY PERTINENT INFO?NO PATIENT: ____. ADVANCE DIRECTIVES HEALTH CARE PROXY?NO HCP PAPERS GIVEN TO PATIENT POWER OF [employer] FRAMES INSPECTOR?NO TRAVEL OUTSIDE US: NO TRAVEL OUTSIDE OF US IN THE LAST 21 DAYS. HOUSING: OWNS HOME. DOMESTIC VIOLENCE NONE. REVIEW OF SYSTEMS REVIEWED BY: PROVIDER: MARY GUZMÁN . CONSTITUTIONAL: ANY CHANGE IN YOUR MEDICAL CONDITION? NO . CHILLS NO . FEVER NO . INFECTION: DO YOU HAVE NEW INFECTIONS? NO . DO YOU HAVE HISTORY OF MRSA? NO . MUSCULOSKELETAL: ANY NEW PATTERNS OF PAIN OR NUMBNESS? NO . GASTROENTEROLOGY: ANY NEW CHANGE IN BOWEL CONTROL? NO . GENITOURINARY: ANY NEW CHANGE IN BLADDER CONTROL? NO . IS THERE A CHANCE YOU COULD BE ? NO . HEMATOLOGY/LYMPH: DO YOU TAKE ANY BLOOD THINNERS? (FOR EXAMPLE- COUMADIN, PLAVIX, AGGRENOX, PLATEL, PRADAXA, OR XARELTO) NO . WHEN WAS YOUR LAST DOSE? DATE: TIME: . NEUROLOGY: HAVE YOU FALLEN IN THE PAST 6 MONTHS? NO . ANY NEW EXTREMITY NUMBNESS OR WEAKNESS? NO . CARDIOLOGY: DO YOU HAVE A PACEMAKER OR DEFIBRILLATOR? NO . CHEST PAIN PATIENT DENIES . RESPIRATORY: HAVE YOU BEEN SICK IN THE PAST WEEK? NO . FEVER NO . FLU LIKE SYMPTOMS? NO . COUGH NO . INTEGUMENTARY: DO YOU HAVE ANY RASHES OR OPEN SORES? YES, LG WOUND LEFT LEG--SEES DR. WHALEN . ALLERGIC/IMMUNO: ARE YOU ALLERGIC TO SHELLFISH OR IV DYE? NO . ANY NEW ALLERGIES? NO . PSYCHIATRIC: DO YOU HAVE THOUGHTS OF HURTING YOURSELF OR SOMEONE ELSE? NO . ARE YOU ABUSED, NEGLECTED, OR IN AN UNSAFE ENVIRONMENT? NO . ENDOCRINOLOGY: ARE YOU DIABETIC? YES - UNDER BETTER CONTROL . OTHER: DO YOU NEED ANY PRESCRIPTIONS? YES . IF YES, PLEASE LIST: FENTANYL PATCH . ANY NEW PROBLEMS WITH YOUR MEDICATIONS? NO . WHEN DID YOU LAST EAT? ____ . WHEN DID YOU LAST DRINK? ____ . WHAT DID YOU LAST DRINK? ____ . NAME OF PERSON DRIVING YOU HOME? ____ . DO YOU HAVE ANY OTHER QUESTIONS OR CONCERNS DILAUDID NOT HELPING MUCH . VITAL SIGNS WT 208 LBS, HT 71 IN, BMI 29.01 INDEX, BP 99/67 MM HG, HR 122 /MIN, RR 16 /MIN, TEMP 97.2 F, OXYGEN SAT % 97, REVIEWED BY: AD. EXAMINATION GENERAL EXAMINATION: GENERAL APPEARANCE:STANDS THROUGHOUT APPOINTMENT. PSYCHALERT , ORIENTED X 3 , APPROPRIATE MOOD AND AFFECT, SPEACH MONOTONE . LUNGS:CLEAR TO AUSCULTATION BILATERALLY. HEART:HEART RATE REGULAR. ABDOMEN:TOUGH ABD SURFACE. BOWEL SOUNDS PRESENT. MUSCULOSKELETAL:LEFT LEG ROTATED OUTWARD AT HIP. LEG STIFF. LEFT LEG DRESSING IN PLACE, DAMP WITH SEROUS FLUID. TENDER WITH PALPATION OVER LOW BACK. GAIT ANTALGIC. . ASSESSMENTS DIABETIC PERIPHERAL NEUROPATHY ASSOCIATED WITH TYPE 2 DIABETES MELLITUS - E11.42 (PRIMARY) HIP PAIN, LEFT - M25.552 PRIMARY OSTEOARTHRITIS INVOLVING MULTIPLE JOINTS - M15.0 CHRONIC PRESCRIPTION OPIATE USE - Z79.891 TREATMENT DIABETIC PERIPHERAL NEUROPATHY ASSOCIATED WITH TYPE 2 DIABETES MELLITUS STOP HYDROMORPHONE HCL TABLET, 2 MG, 1 TABLET NEEDED, ORALLY, EVERY 6 HRS PRN PAIN MDD=4 STOP DURAGESIC-100 PATCH 72 HOUR, 100 MCG/HR, 1 PATCH TO SKIN, TRANSDERMAL, APPLY 1 PATCH Q 72 HRS MDD=1, 30 DAY(S), 10 START OXYCODONE HCL TABLET, 10 MG, 1 -2 TABLET, ORALLY, EVERY 6 HRS PRN PAIN MDD=4, 30 DAY(S), 120, REFILLS 0 START FENTANYL PATCH 72 HOUR, 75 MCG/HR, 1 PATCH TO SKIN, TRANSDERMAL, APPLY 1 PAYCH Q 72 HRS CHRONIC PAIN MDD=1, 30 DAY(S), 10, REFILLS 0 CLINICAL NOTES: ISTOP REGISTRY REVIEWED AND DEMNOSTRATES COMPLLIANCE. BRINGS IN MEDICATIONS WHICH IS APPROPRIATE FOR WHAT WAS DISPENSED. RECENT URINE TOXICOLOGY REVIEWED. NO UNAUTHORIZED MEDICATIONS. NO ILLICIT SUBSTANCES AND PRESCRIBED MEDICATIONS WERE PRESENT. PROCEDURE CODES FA211 ESTABILISHED PATIENT [facility] CHARGE G8730 PAIN ASSESS POS TOOL F/U PLAN DOC G8427 DOC MEDS VERIFIED W/PT OR RE DISPOSITION & COMMUNICATION FOLLOW UP 26-28 DAYS (REASON: MED MANAGMENT) ELECTRONICALLY SIGNED BY BEBETO GORE ON 01/10/2017 AT 05:38 PM EDT DISCLAIMER : THIS IS A VISIT SUMMARY EXTRACTED FROM THE Apparent CHART. IT IS NOT A COPY OF THE [employer] PROGRESS NOTE. MEEK
== END ==
LOC: M PAIN 14:40
PROVIDERS: ATTEND Nurse Practitioner Family
DX: E11.42 Type 2 diabetes mellitus with diabetic polyneuropathy (principal); M25.552 Pain in left hip; M15.0 Primary generalized (osteo)arthritis; Z79.891 Long term (current) use of opiate analgesic; Z79.899 Other long term (current) drug therapy; Z79.4 Long term (current) use of insulin; Z79.84 Long term (current) use of oral hypoglycemic drugs; Z79.82 Long term (current) use of aspirin; F17.210 Nicotine dependence, cigarettes, uncomplicated

== ENCOUNTER 2016-12-24 00:51 | Inpatient (IN) | payer MEDICARE ==
[~2016-12-24] VITALS: Ht 180.3 cm; Wt 100.1 kg
[~2016-12-24 00:51] MED LIST changes: -CEFD300CAP PO; -DOXY100T2 PO; -FERR1TAB8 PO; -FISH120012 PO; +GLIP10TA58 PO; -GLIP1TAB11 PO; -KEFL500C17 PO; +KEFL500C7 PO; -METF10004 PO; -METO25TA4 PO; -NICO14PA TD; -OXYC10TA12 PO
[2016-12-25] VITALS (7 sets, daily range): BP systolic 103–117; BP diastolic 56–72
[2016-12-25] MEDS ORDERED: MORPHINE 2 MG/ML 1ML SYRINGE IV PRN (04:30)
[2016-12-25] MEDS ORDERED: ACETAMINOPHEN TAB 650MG DOSE (2X325MG) PO PRN (04:30)
[2016-12-25] MEDS ORDERED: FISH120012 PO (04:33)
[2016-12-25] MEDS ORDERED: OXYC10TA12 PO (04:36)
[2016-12-25] MEDS ORDERED: INSULANT SC (04:38)
[2016-12-25] MEDS ORDERED: INSUHUMDS SC (04:39)
[2016-12-25] MEDS ORDERED: GLUCAGON FOR INJ 1 MG VIAL (J1610) SC PRN (05:00)
[2016-12-25] MEDS: NS 1,000 ML IV SCH ×2 (05:00→14:20)
[2016-12-25] MEDS ORDERED: DEXTROSE 50% 50 ML SYRINGE IV PRN (05:00)
[2016-12-25] MEDS: LATANOPROST 0.005% OPHTH SOLN 2.5 ML OU SCH ×2 (05:00→20:57)
[2016-12-25] MEDS ORDERED: GLUCOSE 4 GM CHEW TABLET PO PRN (05:00)
[2016-12-25] MEDS: NIACIN SR (NIASPAN) 500 MG TAB PO SCH ×2 (05:30→21:03)
[2016-12-25] MEDS ORDERED: PIPERACILLIN/TAZOBACTAM SOD 3.375 GM in D5W MINI-BAG PLUS 50 ML IV SCH (06:00)
[2016-12-25] MEDS: VANCOMYCIN HCL 1,000 MG, VIAL MATE ADAPTER 1 EACH in D5W 250 ML IV SCH ×3 (06:09→21:10)
[2016-12-25] MEDS: PIPERACILLIN/TAZOBACTAM SOD 3.375 GM in D5W MINI-BAG PLUS 50 ML IV SCH ×4 (06:09→22:43)
--- NOTE | 2016-12-25 06:19 | HPEPDOC ---
General Date of Admission Dec 25, 2016 at 02:40 Primary Care Physician: SARAHY BOURGEOIS MD Attending Physician: LIZETTE PLUNKETT DO Chief Complaint The patient is a 61-year-old male admitted with a reason for visit of Sepsis. Source: Patient Exam Limitations: No limitations Timing/Duration: Week(s) Severity: Moderate Associated Symptoms: Malaise, Weakness, Dizziness, Mechanical fall History of Present Illness 61-year-old male, history of diabetes, neuropathy, leg ulcer, presented with generalized weakness on his 2-D gait and multiple falls. for Past couple of weeks he has been more nondistended. Breasts 4 weeks back. He also goes to the wound clinic for his left leg ulcer. He complains that he had multiple falls in the past few weeks and he always feels weak daily and now is getting slurred speech for past few days. He went to the local hospital in and was transferred to a [facility] for possible sepsis due to leg ulcers and unsteady gait workup Home Medications Scheduled Aspirin (Aspirin 81) 81 Mg Tab, 81 MG PO BID, (Reported) Fentanyl (Fentanyl) 100 Mcg Tdsy, 100 MCG TD Q72H, (Reported) CURRENTLY ON RIGHT SHOULDER BLADE AREA Fish Oil (Fish Oil) 1,200 Mg Cap, 1,200 MG PO DAILY, (Reported) Gabapentin (Gabapentin) 800 Mg Tab, 800 MG PO TID, (Reported) Glipizide (Glipizide Xl) 10 Mg Tab, 10 MG PO BID, (Reported) Insulin Glargine (Lantus) 1 Units/0.01 Ml Susp, 80 UNITS SC BID, (Reported) Insulin Human Lispro (Humalog) 1 Units/0.01 Ml Inj, 0 SC ASDIRECTED, (Reported) Per Sliding Scale Metformin Hydrochloride (Metformin HCl) 1,000 Mg Tab, 1,000 MG PO BID, (Reported ) Metoprolol Tartrate (Metoprolol Tartrate) 25 Mg Tab, 25 MG PO BID, (Reported) Multivitamins *[facility] STOCKED* (Thera M Plus *[facility] STOCKED*) 1 Tab Tab, 1 TAB PO DAILY, (Reported) Niacin (Niacin ER) 1,000 Mg Tab, 1,000 MG PO QHS, (Reported) Pravastatin Sodium (Pravachol) 20 Mg Tab, 20 MG PO DAILY, (Reported) Travoprost (Travatan Z) 50 Drop/2.5 Ml Soln, 1 DROP OU QHS, (Reported) Scheduled PRN Oxycodone HCl (Oxycodone HCl) 10 Mg Tab, 10 MG PO Q6H PRN for PAIN, (Reported) Allergies Coded Allergies: No Known Drug Allergy (Verified Allergy, 01/16/13) Past Medical History Medical History Diabetes mellitus leg ulcers and also neuropathy Surgical History Femoral stent Family History Significant Family History: No pertinent family hx Social History * Smoker: less than 1 pack/day Alcohol: Denies Drugs: denies Recent Travel/Sick Contacts: Denies: Recent travel, Recent sick contacts Review of Symptoms Constitutional: Reports: Fever, Weakness, Fatigue, Lethargy, Denies: Chills, Night Sweats Eyes: Denies: Pain, Vision change, Conjunctivae inflammation, Eyelid inflammation, Redness, Other ENT: Denies: Head Aches, Ear Pain, Dysphagia Skin: Reports: Lesions, Breakdown, Other (leg ulcer), Denies: Rash Pulmonary: Denies: Dyspnea, Cough, Pleuritic Chest Pain, Other Symptoms Cardiovascular: Reports: Lt Headedness, Denies: Chest Pain, Palpitations, Orthopnea, Paroxysmal Noc. Dyspnea Gastrointestinal: Denies: Nausea, Vomiting, Abdominal Pain, Diarrhea Genitourinary: Denies: Dysuria, Frequency, Incontinence, Retention Hematologic: Denies: Bruising, Bleeding Excessively Musculoskeletal: Denies: Neck Pain, Back Pain, Joint Pain, Muscle Pain, Spasms Neurological: Reports: Weakness, Change in speech, Other Symptoms (unsteady gait), Denies: Numbness, Confusion Psych: Reports: Mood Normal, Denies: Depression, Memory Issues Physical Examination General Exam: Positive: Alert, No Acute Distress Eye Exam: Positive: PERRLA, Conjunctiva & lids normal, EOMI, Negative: Sclera icteric ENT Exam: Positive: Atraumatic, Mucous membr. moist/pink, Pharynx Normal Neck Exam: Positive: Supple, Negative: JVD, thyromegaly Chest Exam: Positive: Clear to auscultation, Normal air movement Heart Exam: Positive: Rate Normal, Regular Rhythm, Normal S1, Normal S2, Negative: Murmurs, Rubs Telemetry: Positive: No significant arrhythmia Abdomen Exam: Positive: Normal bowel sounds, Soft, Negative: Tenderness, Hepatospenomegaly Extremity Exam: Positive: Normal pulses, Other (the left leg ulcers), Negative: Clubbing, Cyanosis, Edema Skin Exam: Positive: Nl turgor and temperature, Breakdown, Lesion Neuro Exam: Positive: Normal Speech, Reflexes 2+, Other (unsteady gait) Psych Exam: Positive: Mental status NL, Mood NL, Oriented x 3 Vital Signs Vital Signs Date Time Temp Pulse Resp B/P (MAP) Pulse Ox O2 Delivery O2 Flow Rate FiO2 12/25/16 04:56 98.5 95 22 110/63 (79) 93 Room Air 12/25/16 02:45 2.0 Assessment/Plan This 71-year-old man, history of diabetes, neuropathy and leg ulcer, presented with them on a steady gait and fever Problems (1) Cellulitis Status: Acute Problem Text: Leg ulcers need to be treated with the wound care, IV Zosyn and IV vancomycin. Follow for vascular surgeon and the wound care as an outpatient. Will consult surgeon if it needs to be debrided (2) Unsteady gait Problem Text: CT head unremarkable. We will get the MRA of the brain (3) Diabetes Status: Chronic Problem Text: Continue with Levemir and standing as scale insulin (4) Tobacco abuse Problem Text: Continue with nicotine patch Plan / VTE VTE Prophylaxis Ordered?: Yes Plan IVF: Initiate Diet: Continue Current Activity: Continue Current Therapy: PT, OT Pt and Family Services: Home Care Diagnostics: Repeat Labs in AM Anticipated Discharge: Home PELON ANGEL MD Dec 25, 2016 06:19
--- NOTE | 2016-12-25 06:30 | PHACANCOPD ---
PHARMACY VANCOMYCIN DOSING Pt Demographics Demographics Patient Age:61 , Weight:98.200 , Gender: male Adjusted Body Weight Date: 12/25/16, Adjusted Body Weight: [84] Kg Events Past 24 Hours Events Past 24 Hours: NO: Dialysis, Diuretic Therapy, Change in CrCl, Fever, Elevation in WBC, Pending Diagnostics, Pending Procedures, Other Vancomycin Vancomycin Target Ranges: 15-20 mcg/ml Vancomycin Load Y/N: Yes Load Dose Date Time Vancomycin Load Dose: 1400MG Date: 12-24 Time: 2200 Vancomycin Dose Date: 12/25/16. Current Vancomycin Dose: [1000MG Q8H] Intermittent Dosing?: No Labs Labs SCR FROM [facility] = 1.3 Creatinine Clearance Date:12/25/16. Creatinine Clearance: [63]. Pending Labs Trough 06-11 @ 2100 Assessment and Plan Maintaining Current Dose?: Yes Reason for dose change: No Dose Change Pharmacist Note Pharmacist Note Date: 12/25/16. Pharmacist note:dosed at 1000mg q8h with a trough ordered for 06- 11 @ 2100. Will continue to monitor and make adjustments as needed. DARBY HOWARD PHARMACY Dec 25, 2016 06:30
[2016-12-25 06:50] LABS: CREATININE FOR GFR 0.99 MG/DL (0.70-1.30); GLOMERULAR FILTRATION RATE > 60.0 (>49)
[2016-12-25] MEDS ORDERED: HumaLOG INSULIN (NovoLOG) PER UNIT SC SCH (07:30)
[2016-12-25] MEDS: HumaLOG INSULIN (NovoLOG) PER UNIT SC SCH ×4 (08:22→21:00)
[2016-12-25] MEDS: oxyCODONE 5MG TAB PO PRN ×3 (08:23→21:22)
[2016-12-25] MEDS: GABAPENTIN 400 MG CAP PO SCH ×3 (10:01→20:57)
[2016-12-25] MEDS: MULTIVITAMINS/MINERALS THERAP 1 TAB PO SCH (10:01)
[2016-12-25] MEDS: ASPIRIN 81 MG ENTERIC TAB PO SCH ×2 (10:02→20:57)
[2016-12-25] MEDS: PRAVASTATIN 20 MG TAB PO SCH (10:02)
[2016-12-25] MEDS: NICOTINE 14 MG/24 HR TRANSDERMAL TD SCH (10:03)
[2016-12-25] MEDS: LEVEMIR (INSULIN DETEMIR) 1 UNITS/0.01ML SC SCH ×2 (10:03→21:00)
[2016-12-25] MEDS: METOPROLOL TART 25 MG TABLET PO SCH ×2 (10:24→21:07)
--- NOTE | 2016-12-25 12:07 | REP ---
Bilateral carotid artery duplex ultrasound: Peak flow velocity analysis: RIGHT LEFT ICA. Peak flow velocity cm/sec 119 141 ICA Diastolic flow velocity cm/sec 62 64 ICA/CCA Ratio 2.49 2.32 There is had a very atheromatous plaque in the distal common carotid arteries, bulbs, proximal internal carotid arteries and proximal external carotid arteries bilaterally. However, the peak flow velocities sees are normal bilaterally. The findings indicate less than 50% stenosis bilaterally. There is no significant stenosis on the right or the left. There is antegrade flow in the vertebral arteries bilaterally Signed by Luther Fountain MD 12/25/2016 11:59 A
--- NOTE | 2016-12-25 20:22 | IPNPDOC ---
Subjective Date Seen The patient was seen on 12/25/16. Subjective Chief Complaint/HPI The patient is a 61-year-old male admitted with a reason for visit of Sepsis. Constitutional: Denies: Chills, Fever, Night Sweats Pulmonary: Denies: Dyspnea, Cough Objective Physical Examination General Exam: Positive: Alert, No Acute Distress Eye Exam: Positive: PERRLA, Conjunctiva & lids normal, EOMI, Negative: Sclera icteric ENT Exam: Positive: Atraumatic, Mucous membr. moist/pink, Pharynx Normal Neck Exam: Positive: Supple, Negative: JVD, thyromegaly Chest Exam: Positive: Clear to auscultation, Normal air movement Heart Exam: Positive: Rate Normal, Regular Rhythm, Normal S1, Normal S2, Negative: Murmurs, Rubs Telemetry: Positive: No significant arrhythmia Abdomen Exam: Positive: Normal bowel sounds, Soft, Negative: Tenderness, Hepatospenomegaly Extremity Exam: Positive: Normal pulses, Other (the left leg ulcers), Negative: Clubbing, Cyanosis, Edema Skin Exam: Positive: Nl turgor and temperature, Breakdown, Lesion Neuro Exam: Positive: Normal Speech, Reflexes 2+, Other (unsteady gait) Psych Exam: Positive: Mental status NL, Mood NL, Oriented x 3 Assessment /Plan Problems (1) Cellulitis Status: Acute Problem Text: * Leg ulcers need to be treated with the wound care, IV Zosyn and IV vancomycin. * Follow for vascular surgeon and the wound care with dr maher * will order wound cultures, blood culture * wound care per PT * WBC at [place] was 17, lactic acid was 1.5 (2) Unsteady gait Problem Text: * CT head unremarkable. We will get the MRA of the brain * will order PT for home safety eval (3) Diabetes Status: Chronic Problem Text: Continue with Levemir and standing as scale insulin (4) Tobacco abuse Status: Chronic Problem Text: Continue with nicotine patch (5) Hypertension Status: Chronic (6) Diabetic neuropathy Status: Chronic Problem Text: continue his home medication (7) Hyperlipidemia Status: Chronic Response to Treatment: Stable (8) Chronic back pain Status: Chronic Response to Treatment: Stable (9) CLAUDIA (obstructive sleep apnea) Status: Chronic Problem Text: * PT refuses CPAP Plan/VTE VTE Prophylaxis Ordered?: Yes Plan IVF: Initiate Diet: Continue Current Activity: Continue Current Therapy: PT, OT Pt and Family Services: Home Care Diagnostics: Repeat Labs in AM Anticipated Discharge: Home VS, I&O, 24H, Fishbone Vital Signs/I&O Vital Signs Date Time Temp Pulse Resp B/P (MAP) Pulse Ox O2 Delivery O2 Flow Rate FiO2 12/25/16 16:49 18 Room Air 12/25/16 16:19 98 12/25/16 16:00 97.7 90 112/60 (77) 12/25/16 02:45 2.0 I&O- Last 24 Hours up to 6 AM 12/25/16 06:00 Intake Total 0 ml Output Total 475 ml Balance -475 ml Laboratory Data 24H LABS Laboratory Tests 2 12/25/16 06:20: Erythrocyte Sedimentation Rate 86H, Glomerular Filtration Rate > 60.0, C- Reactive Protein, Quantitative 20.90H 12/25/16 07:31: Bedside Glucose (Misc Panel) 190H 12/25/16 12:00: Bedside Glucose (Misc Panel) 215H 12/25/16 17:47: Bedside Glucose (Misc Panel) 225H CBC/BMP Laboratory Tests 12/25/16 06:20 LIZETTE PLUNKETT DO Dec 25, 2016 20:21
[2016-12-25 21:17] LABS: BASO % 0.4 % (0.0-1.0); EOS # 0.2 K/mm3 (0.0-0.50); EOS % 2.8 % (0.0-3.0); LARGE UNSTAINED CELL # 0.1 K/mm3 (0.0-0.4); LARGE UNSTAINED CELL % 1.7 % (0.0-4.0); LYMPH % 13.1 % (24.0-44.0); MEAN CORPUSCULAR HEMOGLOBIN 24.9 pg (27.0-33.0); MEAN CORPUSCULAR HGB CONC 30.9 g/dl (32.0-36.5); MEAN CORPUSCULAR VOLUME 80.6 fl (80.0-96.0); MONO # 0.3 K/mm3 (0.0-0.8); MONO % 4.6 % (0.0-5.0); NEUTROPHILS # 5.5 K/mm3 (1.8-7.7); NEUTROPHILS % 77.4 % (36.0-66.0); PLATELET COUNT, AUTOMATED 241 k/mm3 (150-450); WHITE BLOOD COUNT 7.1 K/mm3 (4.0-10.0)
[2016-12-25 21:43] LABS: ALBUMIN 1.6 GM/DL (3.2-5.2); ALBUMIN/GLOBULIN RATIO 0.38 (1.00-1.93); ALKALINE PHOSPHATASE 45 U/L (45-117); ALT/SGPT 39 U/L (12-78); ANION GAP 6 MEQ/L (8-16); AST/SGOT 32 U/L (15-37); BILIRUBIN,TOTAL 0.2 MG/DL (0.2-1.0); BLOOD UREA NITROGEN 16 MG/DL (7-18); CALCIUM LEVEL 8.1 MG/DL (8.8-10.2); CARBON DIOXIDE LEVEL 26 MEQ/L (21-32); CHLORIDE LEVEL 111 MEQ/L (98-107); CREATININE FOR GFR 1.06 MG/DL (0.70-1.30); GLOMERULAR FILTRATION RATE > 60.0 (>49); GLUCOSE, FASTING 200 MG/DL (80-110); POTASSIUM SERUM 4.5 MEQ/L (3.5-5.1); SODIUM LEVEL 143 MEQ/L (136-145); TOTAL PROTEIN 5.8 GM/DL (6.4-8.2)
--- NOTE | 2016-12-25 21:54 | PHACANCOPD ---
PHARMACY VANCOMYCIN DOSING Pt Demographics Demographics Patient Age:61 , Weight:98.200 , Gender: male Adjusted Body Weight Date: 12/25/16, Adjusted Body Weight: [84] Kg Events Past 24 Hours Events Past 24 Hours: NO: Dialysis, Diuretic Therapy, Change in CrCl, Fever, Elevation in WBC, Pending Diagnostics, Pending Procedures, Other Vancomycin Vancomycin Target Ranges: 15-20 mcg/ml Vancomycin Load Y/N: Yes Load Dose Date Time Vancomycin Load Dose: 1400MG Date: 12-24 Time: 2200 Vancomycin Dose Date: 12/25/16. Current Vancomycin Dose: [1000MG Q8H] Intermittent Dosing?: No Labs Labs Item Value Date Time White Blood Count 7.1 K/mm3 12/25/162057 Creatinine 1.06 MG/DL 12/25/162057 Blood Urea Nitrogen 16 MG/DL 12/25/162057 Vancomycin Level Trough 16.0 UG/ML 12/25/162057 Vital Signs Label Value Date Time Patient Temperature 97.8 degrees F 12/25/162030 Temperature Source Temporal 12/25/162030 Micro Microbiology 12/25/16 Blood Culture, Received Pending Creatinine Clearance Date:12/25/16. Creatinine Clearance: [78]. Assessment and Plan Maintaining Current Dose?: Yes Reason for dose change: No Dose Change Pharmacist Note Pharmacist Note Date: 12/25/16. Pharmacist note:Trough of 16 is within target range. Will continue current dosing. Will continue to monitor and make adjustments as needed. DARBY HOWARD PHARMACY Dec 25, 2016 21:54
[2016-12-26 00:38] VITALS: BP 101/59
[2016-12-26] MEDS: PIPERACILLIN/TAZOBACTAM SOD 3.375 GM in D5W MINI-BAG PLUS 50 ML IV SCH ×4 (05:09→22:47)
[2016-12-26] MEDS: NS 1,000 ML IV SCH ×3 (05:09→21:33)
[2016-12-26] MEDS: oxyCODONE 5MG TAB PO PRN ×3 (05:16→18:42)
[2016-12-26 05:18] VITALS: BP 128/73
[2016-12-26 05:39] LABS: MEAN CORPUSCULAR HEMOGLOBIN 24.9 pg (27.0-33.0); MEAN CORPUSCULAR HGB CONC 30.7 g/dl (32.0-36.5); MEAN CORPUSCULAR VOLUME 81.1 fl (80.0-96.0)
[2016-12-26 06:00] LABS: ALBUMIN 1.6 GM/DL (3.2-5.2); ALBUMIN/GLOBULIN RATIO 0.39 (1.00-1.93); ALKALINE PHOSPHATASE 42 U/L (45-117); ALT/SGPT 39 U/L (12-78); ANION GAP 4 MEQ/L (8-16); AST/SGOT 29 U/L (15-37); BILIRUBIN,TOTAL 0.2 MG/DL (0.2-1.0); BLOOD UREA NITROGEN 14 MG/DL (7-18); CALCIUM LEVEL 8.1 MG/DL (8.8-10.2); CARBON DIOXIDE LEVEL 27 MEQ/L (21-32); CHLORIDE LEVEL 113 MEQ/L (98-107); GLOMERULAR FILTRATION RATE > 60.0 (>49); GLUCOSE, FASTING 69 MG/DL (80-110); POTASSIUM SERUM 4.6 MEQ/L (3.5-5.1); SODIUM LEVEL 144 MEQ/L (136-145); TOTAL PROTEIN 5.7 GM/DL (6.4-8.2)
[2016-12-26] MEDS: VANCOMYCIN HCL 1,000 MG, VIAL MATE ADAPTER 1 EACH in D5W 250 ML IV SCH ×3 (06:09→21:34)
[2016-12-26] MEDS: HumaLOG INSULIN (NovoLOG) PER UNIT SC SCH ×4 (07:30→21:00)
[2016-12-26 08:00] VITALS: BP 105/64
[2016-12-26] MEDS: NICOTINE 14 MG/24 HR TRANSDERMAL TD SCH (09:00)
[2016-12-26] MEDS: LEVEMIR (INSULIN DETEMIR) 1 UNITS/0.01ML SC SCH ×2 (10:14→21:00)
[2016-12-26] MEDS: ASPIRIN 81 MG ENTERIC TAB PO SCH ×2 (10:15→21:33)
[2016-12-26] MEDS: GABAPENTIN 400 MG CAP PO SCH ×3 (10:15→21:33)
[2016-12-26] MEDS: MULTIVITAMINS/MINERALS THERAP 1 TAB PO SCH (10:16)
[2016-12-26] MEDS: METOPROLOL TART 25 MG TABLET PO SCH ×2 (10:16→21:33)
[2016-12-26] MEDS: PRAVASTATIN 20 MG TAB PO SCH (10:16)
--- NOTE | 2016-12-26 13:01 | IPNPDOC ---
Date Seen The patient was seen on 12/26/16. Progress Note SUBJECTIVE: Patient complains of Rt shoulder pain since his fall, but improving at this time. Otherwise no complaints OBJECTIVE PHYSICAL EXAMINATION: VITAL SIGNS: Please see below. GENERAL: Disheveled elderly man no distress HEENT: PERRL, mmm, CN II-XII intact CARDIOVASCULAR: s1s2 regular. RESPIRATORY: CTA b/l. ABDOMINAL: BS+, non tender EXTREMITIES: LLE ilia wrapped, stained dressing NEUROLOGICAL: decreased ROM on LLE secondary to fused hip, no focal deficits otherwise LABORATORY DATA: Please see below. MICROBIOLOGY: Please see below. IMAGING: Carotid Duplex: the peak flow velocities sees are normal bilaterally. The findings indicate less than 50% stenosis bilaterally. There is no significant stenosis on the right or the left. There is antegrade flow in the vertebral arteries bilaterally DVT prophylaxis ordered?: will order lovenox ASSESSMENT AND PLAN: This is a 61-year-old man with RLE Cellulitis. PROBLEMS: (1) Cellulitis Status: Acute Problem Text: Chronic Leg ulcers will consult wound care. Patient dose not appear to be grossly septic at this time no fevers or leukocytosis. Continue with broad spectrum Abx. If cultures remain negative will narrow to doxy/omnicef PO to complete 7d course. He will require further follow up with Vascular surg and Dr. Powers. (2) Unsteady gait Problem Text: CT head unremarkable, patient describes what seems to be more like mechanical falls. Related to decreased ROM to RLE related to fused hip, and RLE wounds. Will have him evaluated by PT, vitals stable, no concerning cardiac or neurologic symptoms. (3) Diabetes Status: Chronic Problem Text: Continue with Levemir and standing as scale insulin. He has Neurontin for neuropathic pain. (4) Tobacco abuse Status: Chronic Problem Text: Continue with nicotine patch, cessation counselling provided (5) Hypertension Status: Chronic, controlled with metoprolol (6) Hyperlipidemia Status: Chronic Response to Treatment: Stable, continuee with Niacin and statin (8) Chronic back pain Status: Chronic Response to Treatment: Stable, follows in the pain clinic, c/w Neurontin, Oxy IR, Fentanyl (9) CLAUDIA (obstructive sleep apnea) Status: Chronic Problem Text: PT refuses CPAP, noted to desat at night, lengthy discussion re: risks and benefits had, patient aware of risk of sudden . DISPOSITION: . Continue to work with physical therapy and monitor daily progress VS, I&O, 24H, [place] Vital Signs/I&O Vital Signs Date Time Temp Pulse Resp B/P (MAP) Pulse Ox O2 Delivery O2 Flow Rate FiO2 12/26/16 12:11 20 Room Air 12/26/16 10:16 90 105/64 12/26/16 08:00 97.8 100 2.0 I&O- Last 24 Hours up to 6 AM 12/26/16 06:00 Intake Total 4570 ml Output Total 2450 ml Balance 2120 ml Laboratory Data 24H LABS Laboratory Tests 2 12/25/16 17:47: Bedside Glucose (Misc Panel) 225H 12/25/16 20:58: White Blood Count 7.1, Red Blood Count 3.24L, Hemoglobin 8.1L, Hematocrit 26.1L , Mean Corpuscular Volume 80.6, Mean Corpuscular Hemoglobin 24.9L, Mean Corpuscular Hemoglobin Concent 30.9L, Red Cell Distribution Width 15.0H, Platelet Count 241, Neutrophils (%) (Auto) 77.4H, Lymphocytes (%) (Auto) 13.1L, Monocytes (%) (Auto) 4.6, Eosinophils (%) (Auto) 2.8, Basophils (%) (Auto) 0.4, Neutrophils # (Auto) 5.5, Lymphocytes # (Auto) 1.0L, Monocytes # (Auto) 0.3, Eosinophils # (Auto) 0.2, Basophils # (Auto) 0.0, Large Unclassified Cells % 1.7 , Large Unclassified Cells # 0.1, Anion Gap 6L, Glomerular Filtration Rate > 60.0, Blood Urea Nitrogen 16, Creatinine 1.06, Sodium Level 143, Potassium Level 4.5, Chloride Level 111H, Carbon Dioxide Level 26, Calcium Level 8.1L, Aspartate Amino Transf (AST/SGOT) 32, Alanine Aminotransferase (ALT/SGPT) 39, Alkaline Phosphatase 45, Total Bilirubin 0.2, Total Protein 5.8L, Albumin 1.6L, Albumin/Globulin Ratio 0.38L, Vancomycin Level Trough 16.0 12/25/16 21:05: Bedside Glucose (Misc Panel) 236H 12/26/16 04:26: Anion Gap 4L, Glomerular Filtration Rate > 60.0, Blood Urea Nitrogen 14, Creatinine 0.80, Sodium Level 144, Potassium Level 4.6, Chloride Level 113H, Carbon Dioxide Level 27, Calcium Level 8.1L, Aspartate Amino Transf (AST/SGOT) 29, Alanine Aminotransferase (ALT/SGPT) 39, Alkaline Phosphatase 42L, Total Bilirubin 0.2, Total Protein 5.7L, Albumin 1.6L, Albumin/Globulin Ratio 0.39L 12/26/16 06:31: Bedside Glucose (Misc Panel) 77L 12/26/16 12:17: Bedside Glucose (Misc Panel) 142H CBC/BMP Laboratory Tests 12/25/16 20:58 Red Blood Count 3.24 L, Mean Corpuscular Volume 80.6, Mean Corpuscular Hemoglobin 24.9 L, Mean Corpuscular Hemoglobin Concent 30.9 L, Red Cell Distribution Width 15.0 H, Neutrophils (%) (Auto) 77.4 H, Lymphocytes (%) (Auto ) 13.1 L, Monocytes (%) (Auto) 4.6, Eosinophils (%) (Auto) 2.8, Basophils (%) ( Auto) 0.4, Neutrophils # (Auto) 5.5, Lymphocytes # (Auto) 1.0 L, Monocytes # ( Auto) 0.3, Eosinophils # (Auto) 0.2, Basophils # (Auto) 0.0, Calcium Level 8.1 L , Aspartate Amino Transf (AST/SGOT) 32, Alanine Aminotransferase (ALT/SGPT) 39, Alkaline Phosphatase 45, Total Bilirubin 0.2, Total Protein 5.8 L, Albumin 1.6 L 12/26/16 04:26 Red Blood Count 3.30 L, Mean Corpuscular Volume 81.1, Mean Corpuscular Hemoglobin 24.9 L, Mean Corpuscular Hemoglobin Concent 30.7 L, Red Cell Distribution Width 15.0 H, Calcium Level 8.1 L, Aspartate Amino Transf (AST/SGOT ) 29, Alanine Aminotransferase (ALT/SGPT) 39, Alkaline Phosphatase 42 L, Total Bilirubin 0.2, Total Protein 5.7 L, Albumin 1.6 L Microbiology Microbiology 12/25/16 Blood Culture, Received Pending RADHA GARCIA MD Dec 26, 2016 13:01
[2016-12-26 13:28] LABS: RETIC HEMOGLOBIN CONTENT CHr 24.6 PG (24-36); RETICULOCYTE % ADVIA2120 1.6 % (0.5-1.5)
[2016-12-26] MEDS: ENOXAPARIN 40 MG/0.4 ML SYRINGE (J1650) SC SCH (14:00)
[2016-12-26 14:02] LABS: PERCENT SATURATION 14.5 % (19.7-37.4)
[2016-12-26] MEDS: LATANOPROST 0.005% OPHTH SOLN 2.5 ML OU SCH (21:00)
[2016-12-26] MEDS: NIACIN SR (NIASPAN) 500 MG TAB PO SCH (21:32)
[2016-12-26 22:00] VITALS: BP 130/70
[2016-12-27] MEDS: oxyCODONE 5MG TAB PO PRN ×4 (03:05→22:58)
[2016-12-27] MEDS: PIPERACILLIN/TAZOBACTAM SOD 3.375 GM in D5W MINI-BAG PLUS 50 ML IV SCH ×2 (04:35→10:26)
[2016-12-27] MEDS: VANCOMYCIN HCL 1,000 MG, VIAL MATE ADAPTER 1 EACH in D5W 250 ML IV SCH (05:52)
[2016-12-27 06:00] VITALS: BP 131/63
[2016-12-27 06:50] LABS: MEAN CORPUSCULAR HEMOGLOBIN 24.7 pg (27.0-33.0); MEAN CORPUSCULAR HGB CONC 30.7 g/dl (32.0-36.5); MEAN CORPUSCULAR VOLUME 80.6 fl (80.0-96.0); RED CELL DISTRIBUTION WIDTH 14.8 % (11.5-14.5); WHITE BLOOD COUNT 6.3 K/mm3 (4.0-10.0)
[2016-12-27 07:18] LABS: ALBUMIN 1.8 GM/DL (3.2-5.2); ALBUMIN/GLOBULIN RATIO 0.44 (1.00-1.93); ALKALINE PHOSPHATASE 41 U/L (45-117); ALT/SGPT 33 U/L (12-78); ANION GAP 4 MEQ/L (8-16); AST/SGOT 21 U/L (15-37); BILIRUBIN,TOTAL 0.2 MG/DL (0.2-1.0); BLOOD UREA NITROGEN 11 MG/DL (7-18); CALCIUM LEVEL 8.1 MG/DL (8.8-10.2); CARBON DIOXIDE LEVEL 27 MEQ/L (21-32); CHLORIDE LEVEL 109 MEQ/L (98-107); CREATININE FOR GFR 0.74 MG/DL (0.70-1.30); GLOMERULAR FILTRATION RATE > 60.0 (>49); GLUCOSE, FASTING 82 MG/DL (80-110); POTASSIUM SERUM 4.5 MEQ/L (3.5-5.1); SODIUM LEVEL 140 MEQ/L (136-145); TOTAL PROTEIN 5.9 GM/DL (6.4-8.2)
[2016-12-27] MEDS: HumaLOG INSULIN (NovoLOG) PER UNIT SC SCH ×4 (07:30→20:47)
[2016-12-27] MEDS ORDERED: fentaNYL 100 MCG/HR PATCH TD SCH (09:00)
[2016-12-27] MEDS ORDERED: FENTANYL REMOVAL DOCUMENTATION MISC XX SCH (09:00)
[2016-12-27] MEDS: DOXYCYCLINE HYCLATE 100 MG TAB PO SCH ×2 (09:00→20:46)
[2016-12-27] MEDS: CEFDINIR 300 MG CAP (OMNICEF) PO SCH ×2 (09:00→20:46)
[2016-12-27] MEDS: GABAPENTIN 400 MG CAP PO SCH ×3 (09:13→20:46)
[2016-12-27] MEDS: ENOXAPARIN 40 MG/0.4 ML SYRINGE (J1650) SC SCH (09:13)
[2016-12-27] MEDS: NICOTINE 14 MG/24 HR TRANSDERMAL TD SCH (09:14)
[2016-12-27] MEDS: MULTIVITAMINS/MINERALS THERAP 1 TAB PO SCH (09:14)
[2016-12-27] MEDS: METOPROLOL TART 25 MG TABLET PO SCH ×2 (09:14→20:46)
[2016-12-27] MEDS: PRAVASTATIN 20 MG TAB PO SCH (09:14)
[2016-12-27] MEDS: ASPIRIN 81 MG ENTERIC TAB PO SCH ×2 (09:15→20:46)
[2016-12-27] MEDS: LEVEMIR (INSULIN DETEMIR) 1 UNITS/0.01ML SC SCH ×2 (09:15→21:00)
[2016-12-27] MEDS: NS 1,000 ML IV SCH (10:10)
--- NOTE | 2016-12-27 13:36 | IPNPDOC ---
Date Seen The patient was seen on 12/27/16. Progress Note SUBJECTIVE: Patient reports he is having continued difficulty with transfers however he states that it is better today than yesterday he denies chest pain source of breath lightheadedness dizziness any weakness other than associated with left lower extremity related to pain he denies any paresthesias or dysarthria OBJECTIVE PHYSICAL EXAMINATION: VITAL SIGNS: Please see below. GENERAL: Disheveled elderly man no distress HEENT: PERRL, mmm, CN II-XII intact CARDIOVASCULAR: s1s2 regular. RESPIRATORY: CTA b/l. ABDOMINAL: BS+, non tender EXTREMITIES: LLE ilia wrapped NEUROLOGICAL: decreased ROM on LLE secondary to pain no focal deficits otherwise LABORATORY DATA: Please see below. MICROBIOLOGY: Please see below. IMAGING: Carotid Duplex: the peak flow velocities sees are normal bilaterally. The findings indicate less than 50% stenosis bilaterally. There is no significant stenosis on the right or the left. There is antegrade flow in the vertebral arteries bilaterally DVT prophylaxis ordered?: will order lovenox ASSESSMENT AND PLAN: This is a 61-year-old man with RLE Cellulitis. PROBLEMS: (1) Cellulitis Status: Acute Problem Text: Chronic Leg ulcers wound care consult appreciated. Patient dose not appear to be grossly septic at this time no fevers or leukocytosis. At this time I will narrow antibiotics from vancomycin and Zosyn to Omnicef and doxycycline by mouth to complete a seven-day course. He will require further follow up with Vascular surg and Dr. Powers. (2) Unsteady gait Problem Text: CT head unremarkable, patient describes what seems to be more like mechanical falls. Related to decreased ROM to RLE related to fused hip, and RLE wounds. PT does not currently feel he is safe to return to his previous living environment although he tells me he does live with his and has 24 7 assistance at home , vitals stable, no concerning cardiac or neurologic symptoms. See no indication for MRI or echocardiogram (3) Diabetes Status: Chronic Problem Text: Continue with Levemir and standing as scale insulin. He has Neurontin for neuropathic pain. (4) Tobacco abuse Status: Chronic Problem Text: Continue with nicotine patch, cessation counselling provided (5) Hypertension Status: Chronic, controlled with metoprolol (6) Hyperlipidemia Status: Chronic Response to Treatment: Stable, continuee with Niacin and statin (8) Chronic back pain Status: Chronic Response to Treatment: Stable, follows in the pain clinic, c/w Neurontin, Oxy IR, Fentanyl (9) CLAUDIA (obstructive sleep apnea) Status: Chronic Problem Text: PT refuses CPAP, noted to desat at night, I did once again have a lengthy discussion re: risks and benefits of noncompliance with CPAP in relation to obstructive sleep apnea had, patient once again states he is aware of risk of sudden and still declines intervention. (10) anemia Appears to be iron deficiency in nature will restart him on supplementation, occult stool for blood is been ordered he would likely benefit from outpatient colonoscopy DISPOSITION: Continue to work with physical therapy and monitor daily progress VS, I&O, 24H, Fishbone Vital Signs/I&O Vital Signs Date Time Temp Pulse Resp B/P (MAP) Pulse Ox O2 Delivery O2 Flow Rate FiO2 12/27/16 11:02 16 12/27/16 09:14 64 131/63 12/27/16 08:15 Room Air 12/27/16 08:15 95 12/27/16 06:00 98.0 12/26/16 14:33 9.0 I&O- Last 24 Hours up to 6 AM 12/27/16 06:00 Intake Total 3030 ml Output Total 975 ml Balance 2055 ml Laboratory Data 24H LABS Laboratory Tests 2 12/26/16 16:55: Bedside Glucose (Misc Panel) 188H 12/26/16 20:14: Bedside Glucose (Misc Panel) 204H 12/27/16 06:31: Erythrocyte Sedimentation Rate 107H, Anion Gap 4L, Glomerular Filtration Rate > 60.0, Blood Urea Nitrogen 11, Creatinine 0.74, Sodium Level 140, Potassium Level 4.5, Chloride Level 109H, Carbon Dioxide Level 27, Calcium Level 8.1L, Aspartate Amino Transf (AST/SGOT) 21, Alanine Aminotransferase (ALT/SGPT) 33, Alkaline Phosphatase 41L, Total Bilirubin 0.2, Total Protein 5.9L, Albumin 1.8L , C-Reactive Protein, Quantitative 4.74H, Albumin/Globulin Ratio 0.44L 12/27/16 12:03: Bedside Glucose (Misc Panel) 161H CBC/BMP Laboratory Tests 12/27/16 06:31 Red Blood Count 3.39 L, Mean Corpuscular Volume 80.6, Mean Corpuscular Hemoglobin 24.7 L, Mean Corpuscular Hemoglobin Concent 30.7 L, Red Cell Distribution Width 14.8 H, Calcium Level 8.1 L, Aspartate Amino Transf (AST/SGOT ) 21, Alanine Aminotransferase (ALT/SGPT) 33, Alkaline Phosphatase 41 L, Total Bilirubin 0.2, Total Protein 5.9 L, Albumin 1.8 L Microbiology Microbiology 12/25/16 Blood Culture - Preliminary, Resulted No growth after 24 hours . All specim... RADHA GARCIA MD Dec 27, 2016 13:36
[2016-12-27 14:00] VITALS: BP 142/77
[2016-12-27] MEDS: FERROUS SULFATE 325MG TAB PO SCH ×2 (15:43→20:47)
[2016-12-27] MEDS ORDERED: SANTYL OINT 30GM TOP PRN (16:00)
[2016-12-27] MEDS: NIACIN SR (NIASPAN) 500 MG TAB PO SCH (20:46)
[2016-12-27] MEDS: LATANOPROST 0.005% OPHTH SOLN 2.5 ML OU SCH (20:47)
[2016-12-27] MEDS ORDERED: LEVEMIR (INSULIN DETEMIR) 1 UNITS/0.01ML SC ONE (21:30)
[2016-12-27 22:00] VITALS: BP 139/71
[2016-12-28 06:00] VITALS: BP 155/86
[2016-12-28] MEDS: oxyCODONE 5MG TAB PO PRN ×2 (06:20→12:22)
[2016-12-28 06:56] LABS: MEAN CORPUSCULAR HGB CONC 31.1 g/dl (32.0-36.5); MEAN CORPUSCULAR VOLUME 80.2 fl (80.0-96.0); RED CELL DISTRIBUTION WIDTH 15.1 % (11.5-14.5)
[2016-12-28 07:23] LABS: ALBUMIN/GLOBULIN RATIO 0.54 (1.00-1.93); ALKALINE PHOSPHATASE 46 U/L (45-117); ALT/SGPT 31 U/L (12-78); ANION GAP 7 MEQ/L (8-16); AST/SGOT 21 U/L (15-37); BILIRUBIN,TOTAL 0.2 MG/DL (0.2-1.0); BLOOD UREA NITROGEN 11 MG/DL (7-18); CALCIUM LEVEL 7.8 MG/DL (8.8-10.2); CARBON DIOXIDE LEVEL 26 MEQ/L (21-32); CHLORIDE LEVEL 107 MEQ/L (98-107); GLOMERULAR FILTRATION RATE > 60.0 (>49); GLUCOSE, FASTING 61 MG/DL (80-110); POTASSIUM SERUM 4.2 MEQ/L (3.5-5.1); SODIUM LEVEL 140 MEQ/L (136-145); TOTAL PROTEIN 5.7 GM/DL (6.4-8.2)
[2016-12-28] MEDS: HumaLOG INSULIN (NovoLOG) PER UNIT SC SCH ×2 (07:30→13:10)
[2016-12-28] MEDS ORDERED: LEVEMIR (INSULIN DETEMIR) 1 UNITS/0.01ML SC SCH (09:00)
[2016-12-28] MEDS: CEFDINIR 300 MG CAP (OMNICEF) PO SCH (09:07)
[2016-12-28] MEDS: GABAPENTIN 400 MG CAP PO SCH (09:07)
[2016-12-28] MEDS: FERROUS SULFATE 325MG TAB PO SCH (09:07)
[2016-12-28] MEDS: PRAVASTATIN 20 MG TAB PO SCH (09:07)
[2016-12-28 09:08] VITALS: BP 155/86
[2016-12-28] MEDS: METOPROLOL TART 25 MG TABLET PO SCH (09:08)
[2016-12-28] MEDS: DOXYCYCLINE HYCLATE 100 MG TAB PO SCH (09:08)
[2016-12-28] MEDS: MULTIVITAMINS/MINERALS THERAP 1 TAB PO SCH (09:08)
[2016-12-28] MEDS: ASPIRIN 81 MG ENTERIC TAB PO SCH (09:08)
[2016-12-28] MEDS: ENOXAPARIN 40 MG/0.4 ML SYRINGE (J1650) SC SCH (09:09)
[2016-12-28] MEDS: NICOTINE 14 MG/24 HR TRANSDERMAL TD SCH (09:09)
[2016-12-28] MEDS ORDERED: MORPHINE 2 MG/ML 1ML SYRINGE As Ordered ONE (10:10)
[2016-12-28] MEDS ORDERED: MORPHINE 2 MG/ML 1ML SYRINGE IV ONE (10:15)
[2016-12-28] MEDS ORDERED: FERR325T PO (11:55)
[2016-12-28] MEDS ORDERED: CEFD300CAP PO (11:55)
[2016-12-28] MEDS ORDERED: DOXY10CA PO (11:55)
[2016-12-28] MEDS ORDERED: NICO14PA TD (11:55)
[2016-12-29] MEDS ORDERED: SANTYL OINT 30GM TOP SCH (09:00)
--- NOTE | 2016-12-29 18:07 | DSES ---
DATE OF ADMISSION: 12/25/2016 DATE OF DISCHARGE: 12/28/2016 DISCHARGE DIAGNOSIS: Left lower extremity cellulitis. SECONDARY DIAGNOSES: 1. Gait instability. 2. Type 2 diabetes. 3. Tobacco abuse. 4. Hypertension. 5. Dyslipidemia. 6. Chronic back pain. 7. Obstructive sleep apnea. 8. Anemia. 9. Iron deficiency anemia. HOSPITAL COURSE: The patient is a 61-year-old man who was transferred from an outside hospital for sepsis secondary to right lower extremity cellulitis. He was admitted to the progressive care unit. He has been having frequent falls at home which were mechanical in nature. He was started on broad-spectrum antibiotics based on his previous culture data. He remained hemodynamically stable and had a good response to care. His chronic lower extremity wound was managed as per wound recommendations from previous Dr. Powers visits where he follows in the clinic very regularly. The patient clinically improved. He was seen by physical therapy and returned to his baseline functional status. He was cleared for discharge home today. SUBJECTIVE: The patient reports that he feels a lot better. He has no more difficulty with his gait. He denies chest pain, shortness of breath, fevers, chills, nausea, vomiting, or diarrhea. OBJECTIVE: VITAL SIGNS: Temperature 98.3, pulse 85, respiratory rate 18, blood pressure 155/86, oxygen saturation 99% on room air. GENERAL: He is a disheveled, man laying in bed, in no distress. NEUROLOGIC: Cranial nerves II-XII are grossly intact. HEENT: He has moist mucous membranes. He has malodorous, poor dentition. CARDIOVASCULAR: S1, S2, regular. RESPIRATORY: Fairly clear. ABDOMEN: Grossly obese. EXTREMITIES: His lower extremity is VICENTA wrapped. No clubbing, cyanosis, or edema. LABORATORY STUDIES: WBC 6.0, hemoglobin 8.6. Hematocrit 27.2, platelet count 258, ESR 82 down from 107. Chemistry panel: Sodium 140, potassium 4.2, chloride 27, bicarbonate 26, BUN 11, creatinine 0.7, CRP 2.2 down from 20.9 at the time of admission. Iron studies were suggestive of iron deficiency anemia. MICROBIOLOGY: Blood cultures were negative. A duplex ultrasound was negative for any DVT. ASSESSMENT AND PLAN: This is a 61-year-old man with resolving right lower extremity cellulitis. 1. Right lower extremity cellulitis. The patient has a chronic leg wound. He no longer appears to be septic. He is afebrile and no leukocytosis. At this time, his antibiotics have been narrowed to Omnicef and doxycycline by mouth to finish a seven-day course. He has five additional days remaining. He will require further followup with vascular surgery, Dr. Harris and Dr. Powers, who he follows normally with. 2. Unsteady gait and mechanical falls, likely secondary to a fused left hip in combination with left lower extremity cellulitis. With treatment of cellulitis, this has improved and he is back to his functional baseline. He has been seen by physical therapy and cleared for discharge home. A CT of his head was negative. He had no concerning neurological or cardiovascular symptoms prior to his falls and no neurological deficits. He had decreased range of motion secondary to pain which has improved progressively over time. 3. Type 2 diabetes. He is continued on Levemir and sliding scale insulin. He was on Neurontin for neuropathic pain. 4. Tobacco use. The patient is continued with his nicotine patch. Cessation counseling provided. 5. Hypertension, chronic and controlled with metoprolol. 6. Dyslipidemia. The patient is on niacin and a statin. 7. Chronic back pain. He follows in the pain clinic. He is continued on Neurontin, Oxy IR, and fentanyl patches. 8. Obstructive sleep apnea. The patient continues to refuse to wear continuous positive airway pressure (CPAP). He has a machine at home. Lengthy discussion were had with him and he is aware of his risk for sudden cardiac , and in spite knowing this, he has no interest in attempting CPAP now or in the future. 9. Iron deficiency anemia. This is a new diagnosis during this day. He has been started on ferrous sulfate twice a day which he should continue upon discharge. DISPOSITION: The patient is being discharged home to the care of his who is with him 06/02. He has been cleared by physical therapy. He is to followup with his primary care provider (PCP) within seven days and followup in the wound clinic as scheduled with Dr. Powers. His activity and diet are as prior to admission. He is to return to the emergency room (ER) if his symptoms worsen. MEDICATIONS AT THE TIME OF DISCHARGE: - cefdinir 300 mg by mouth twice a day for five days - doxycycline 100 mg by mouth twice a day for five days - ferrous sulfate 325 mg twice a day - Nicoderm one patch daily - aspirin 81 mg twice a day - fentanyl 100 mcg every 72 hours patch - gabapentin 800 mg three times a day - glipizide extended release 10 mg twice a day - Lantus 80 units twice a day - lispro sliding scale - metformin one gram twice a day - metoprolol tartrate 25 mg twice a day - multivitamin one tablet daily - niacin 1 gram at bedtime - oxycodone 10 mg every six hours as needed for pain - pravastatin 20 mg daily - travoprost 1 drop in each eye daily at bedtime Greater than 30 minutes was spent organizing disposition.
== END 2016-12-28 14:45 | disposition home health service (06) | DRG 638 ==
LOC: M PCU 12-25 02:40 → M MS5PR 12-26 15:25
PROVIDERS: ADMIT Internal Medicine; ATTEND Internal Medicine
DX: E11.622 Type 2 diabetes mellitus with other skin ulcer (principal); L03.116 Cellulitis of left lower limb; G47.33 Obstructive sleep apnea (adult) (pediatric); M54.5 Low back pain; F17.200 Nicotine dependence, unspecified, uncomplicated; I10 Essential (primary) hypertension; D50.9 Iron deficiency anemia, unspecified; R29.6 Repeated falls; Z79.899 Other long term (current) drug therapy; Z79.82 Long term (current) use of aspirin; E11.40 Type 2 diabetes mellitus with diabetic neuropathy, unspecified; E78.5 Hyperlipidemia, unspecified; R26.89 Other abnormalities of gait and mobility

== ENCOUNTER → 2017-01-20 | Outpatient (CLI) | payer MEDICARE ==
[~2017-01-20] MED LIST changes: +CEFD300CAP PO; +DOXY100T2 PO; +FERR1TAB8 PO; +FISH120012 PO; -GLIP10TA58 PO; +GLIP1TAB11 PO; +KEFL500C17 PO; -KEFL500C7 PO; +METF10004 PO; +METO25TA4 PO; +NICO14PA TD; +OXYC10TA12 PO
--- NOTE | 2017-02-17 01:44 | ECWPNPC ---
PATIENT NAME: DIANA OLIVERA : 1955 GENDER: MALE VISIT DATE: 01/20/2017 DISCHARGE DATE: 01/20/17 1556 VISIT LOCKED DATE TIME: PHYSICIAN: MARY MATA RESOURCE: MARY MATA REASON FOR APPOINTMENT 1. 26-28 DAY HISTORY OF PRESENT ILLNESS HISTORY OF PRESENT ILLNESS: PAIN THE PATIENT DESCRIBES THE PAIN... FALL RISK SCREENING: SCREENING :NO FALLS IN THE PAST YEAR TODAY'S VISIT: NOTES: RATES PAIN LEVEL TODAY 6/10. PAIN IS CENTERED IN LEFT HIP/BUTTUCK AND LEFT LEG. WAS RECENTLY IN THE HOSPITAL FOR INFECTION IN LEFT LEG - HAD IV ABX AND NOW ON ORAL ABX - HAS COMPLETED THIS COURSE. NOTES PAIN IS TOLERABLE WITH CURRENT MEDS. DOES HAVE PAIN IN HIP WHEN WALKING.. CURRENT MEDICATIONS TAKING TRAVATAN Z 0.004 % SOLUTION 1 DROP INTO AFFECTED EYE IN THE EVENING OPHTHALMIC ONCE A DAY TAKING STOOL SOFTENER 100 MG CAPSULE 1 CAPSULE NEEDED ORALLY ONCE A DAY TAKING FISH OIL 1200 MG CAPSULE 1 CAPSULE ORALLY ONCE A DAY TAKING GABAPENTIN 800 MG TABLET 1 TABLET ORALLY THREE TIMES A DAY TAKING PRAVACHOL 20 20 MG TABLET ORAL DAILY TAKING LISINOPRIL 10 10 MG TABLET 1 TABLET ORAL DAILY TAKING METOPROLOL TARTRATE 25 MG TABLET 1 TABLET WITH FOOD ORALLY TWICE A DAY TAKING MULTIVITAMINS 1 OTC DIRECTED ORALLY DAILY, NOTES: NOT TAKING TAKING AQUAPHOR STANDARD OINTMENT DIRECTED EXTERNALLY BID, NOTES: NOT TAKING TAKING GLIPIZIDE XL 10 MG TABLET EXTENDED RELEASE 24 HOUR 1 TABLET ORALLY TWICE DAILY TAKING METFORMIN HCL 1000 MG TABLET 2 TABS ORALLY TWICE A DAY TAKING LANTUS 100 UNIT/ML SOLUTION 80 UNITS SUBCUTANEOUS TWICE DAILY, DOSED TO BS READINGS TAKING HUMALOG 100 UNIT/ML SOLUTION 12 UNITS SUBCUTANEOUS S/S COVERAGE, NEEDED TAKING ASPIR-81 81 MG TABLET DELAYED RELEASE 1 TABLET ORALLY TWICE A DAY TAKING LIDOCAINE 4 % CREAM DIRECTED EXTERNALLY TAKING NIACOR 500 MG TABLET 2 TABLET2 AFTER MEALS ORALLY DAILY TAKING OXYCODONE HCL 10 MG TABLET 1 -2 TABLET ORALLY EVERY 6 HRS PRN PAIN MDD=4 TAKING FENTANYL 75 MCG/HR PATCH 72 HOUR 1 PATCH TO SKIN TRANSDERMAL APPLY 1 PAYCH Q 72 HRS CHRONIC PAIN MDD=1 NOT-TAKING SANTYL 250 UNIT/GM OINTMENT 1 APPLICATION TO AFFECTED AREA EXTERNALLY ONCE A DAY NOT-TAKING TRILIPIX 135 MG CAPSULE DELAYED RELEASE 1 CAPSULE ORALLY ONCE A DAY NOT-TAKING NIASPAN ER 1000 MG 1 TAB ORAL DAILY MEDICATION LIST REVIEWED AND RECONCILED WITH THE PATIENT PAST MEDICAL HISTORY INSULIN-DEPENDENT DIABETES UNCONTROLLED LEFT FOOT OSTEOMYELITIS WITH GANGRENE CULTURE POSITIVE FOR MRSA AND ESCHERICHIA COLI HYPERTENSION HYPERCHOLESTEROLEMIA TOBACCO ABUSE GLAUCOMA 10/02/2012 OSTEOMYELITIS OF LEFT GREAT TOE STATUS POST AMPUTATION DISCHARGED HOME ON 10/08 WITH DOXYCYCLINE FOR 10 DAYS CORONARY ARTERY DISEASE WITH STENT PLACEMENT [address] / DR [place] SLEEP APNEA OSTEOARTHRITIS LOW TESTOSTERONE DEGENERATIVE HIP DISEASE STENTS PLACED DERMATITIS HLA B27 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 REVIEW OF SYSTEMS REVIEWED BY: PROVIDER: MARY GUZMÁN . CONSTITUTIONAL: ANY CHANGE IN YOUR MEDICAL CONDITION? NO . CHILLS NO . FEVER NO . INFECTION: DO YOU HAVE NEW INFECTIONS? NO . DO YOU HAVE HISTORY OF MRSA? NO . MUSCULOSKELETAL: ANY NEW PATTERNS OF PAIN OR NUMBNESS? NO . GASTROENTEROLOGY: ANY NEW CHANGE IN BOWEL CONTROL? NO . GENITOURINARY: ANY NEW CHANGE IN BLADDER CONTROL? NO . IS THERE A CHANCE YOU COULD BE ? NO . HEMATOLOGY/LYMPH: DO YOU TAKE ANY BLOOD THINNERS? (FOR EXAMPLE- COUMADIN, PLAVIX, AGGRENOX, PLATEL, PRADAXA, OR XARELTO) NO . WHEN WAS YOUR LAST DOSE? DATE: TIME: . NEUROLOGY: HAVE YOU FALLEN IN THE PAST 6 MONTHS? YES, 2 WEEKS AGO WAS IN THE HOSPITAL WITH INFECTION TO LEFT LEG . ANY NEW EXTREMITY NUMBNESS OR WEAKNESS? NO . CONFUSION WITH INFECTION HAS CLEARED SINCE COMPLETING ABX . CARDIOLOGY: DO YOU HAVE A PACEMAKER OR DEFIBRILLATOR? NO . RESPIRATORY: HAVE YOU BEEN SICK IN THE PAST WEEK? NO . FEVER NO . FLU LIKE SYMPTOMS? NO . COUGH NO . INTEGUMENTARY: DO YOU HAVE ANY RASHES OR OPEN SORES? YES, LEFT LEG . ALLERGIC/IMMUNO: ARE YOU ALLERGIC TO SHELLFISH OR IV DYE? NO . ANY NEW ALLERGIES? NO . PSYCHIATRIC: DO YOU HAVE THOUGHTS OF HURTING YOURSELF OR SOMEONE ELSE? NO . ARE YOU ABUSED, NEGLECTED, OR IN AN UNSAFE ENVIRONMENT? NO . ENDOCRINOLOGY: ARE YOU DIABETIC? YES -REPORTS DOES NOT HAVE LANTUS AND IS ADJUSTING HUMALOG TO MATCH BLOOD SUGARS. BLOOD SUGARS DOING WELL - 140'S &NBSP;. OTHER: DO YOU NEED ANY PRESCRIPTIONS? NO . IF YES, PLEASE LIST: ____ . ANY NEW PROBLEMS WITH YOUR MEDICATIONS? NO . WHEN DID YOU LAST EAT? ____ . WHEN DID YOU LAST DRINK? ____ . WHAT DID YOU LAST DRINK? ____ . NAME OF PERSON DRIVING YOU HOME? ____ . DO YOU HAVE ANY OTHER QUESTIONS OR CONCERNS NO . VITAL SIGNS WT 209.8 LBS, HT 71 IN, BMI 29.26 INDEX, BP 96/65 MM HG, HR 114 /MIN, RR 16 /MIN, TEMP 97.7 F, OXYGEN SAT % 93, NA INITIALS AW 1529, REVIEWED BY: NLDISCUSSED LOW BP WITH PT AND HE IS WATCHING IT AT HOME. DENIES ANY ADVERSE SYMPTOMS. EXAMINATION GENERAL EXAMINATION: GENERAL APPEARANCE:STANDS THROUGHOUT APPOINTMENT. PSYCHALERT , ORIENTED X 3 , APPROPRIATE MOOD AND AFFECT, SPEACH MONOTONE . LUNGS:CLEAR TO AUSCULTATION BILATERALLY. HEART:HEART RATE REGULAR. ABDOMEN:TOUGH ABD SURFACE. BOWEL SOUNDS PRESENT. MUSCULOSKELETAL:LEFT LEG ROTATED OUTWARD AT HIP. LEG STIFF. LEFT LEG DRESSING IN PLACE, CLEAN AND DRY. TENDER WITH PALPATION OVER LOW BACK. GAIT ANTALGIC. CANE USED FOR BALANCE. ASSESSMENTS DIABETIC PERIPHERAL NEUROPATHY ASSOCIATED WITH TYPE 2 DIABETES MELLITUS - E11.42 (PRIMARY) HIP PAIN, LEFT - M25.552 PRIMARY OSTEOARTHRITIS INVOLVING MULTIPLE JOINTS - M15.0 CHRONIC PRESCRIPTION OPIATE USE - Z79.891 TREATMENT DIABETIC PERIPHERAL NEUROPATHY ASSOCIATED WITH TYPE 2 DIABETES MELLITUS REFILL FENTANYL PATCH 72 HOUR, 75 MCG/HR, 1 PATCH TO SKIN, TRANSDERMAL, APPLY 1 PAYCH Q 72 HRS CHRONIC PAIN MDD=1, 30 DAY(S), 10, REFILLS 0 REFILL OXYCODONE HCL TABLET, 10 MG, 1 -2 TABLET, ORALLY, EVERY 6 HRS PRN PAIN MDD=4, 30 DAY(S), 120, REFILLS 0 NOTES: CONTINUE CURRENT MEDS. CLINICAL NOTES: ISTOP REGISTRY REVIEWED AND DEMNOSTRATES COMPLLIANCE. BRINGS IN MEDICATIONS WHICH IS APPROPRIATE FOR WHAT WAS DISPENSED. RECENT URINE TOXICOLOGY REVIEWED. NO UNAUTHORIZED MEDICATIONS. NO ILLICIT SUBSTANCES AND PRESCRIBED MEDICATIONS WERE PRESENT. PROCEDURE CODES FA211 ESTABILISHED PATIENT [facility] CHARGE [id number] PAIN ASSESS POS TOOL F/U PLAN DOC G8427 DOC MEDS VERIFIED W/PT OR RE DISPOSITION & COMMUNICATION FOLLOW UP FEB 21 OR (REASON: LEG PAIN) ELECTRONICALLY SIGNED BY BEBETO GORE ON 02/16/2017 AT 08:52 AM EDT DISCLAIMER : THIS IS A VISIT SUMMARY EXTRACTED FROM THE [employer] CHART. IT IS NOT A COPY OF THE [employer] PROGRESS NOTE. MEEK
== END ==
LOC: M PAIN 15:00
PROVIDERS: ATTEND Nurse Practitioner Family
DX: G89.29 Other chronic pain (principal); M25.552 Pain in left hip; M15.0 Primary generalized (osteo)arthritis; E11.42 Type 2 diabetes mellitus with diabetic polyneuropathy; I10 Essential (primary) hypertension; Z72.0 Tobacco use; G47.30 Sleep apnea, unspecified; Z79.4 Long term (current) use of insulin; Z79.82 Long term (current) use of aspirin; Z79.891 Long term (current) use of opiate analgesic; Z79.899 Other long term (current) drug therapy

== ENCOUNTER → 2017-02-21 | Outpatient (CLI) | payer MEDICARE ==
--- NOTE | 2017-03-11 23:34 | ECWPNPC ---
PATIENT NAME: DIANA OLIVERA : 1955 GENDER: MALE VISIT DATE: 02/21/2017 DISCHARGE DATE: 02/21/17 1553 VISIT LOCKED DATE TIME: PHYSICIAN: MARY MATA RESOURCE: MARY MATA REASON FOR APPOINTMENT 1. L LEG HISTORY OF PRESENT ILLNESS HISTORY OF PRESENT ILLNESS: PAIN THE PATIENT DESCRIBES THE PAIN... FALL RISK SCREENING: SCREENING :NO FALLS IN THE PAST YEAR TODAY'S VISIT: NOTES: TODAY IS A BAD DAY. INCREASED PAIN IN LEFT LEG FROM COMPRESSION STOCKING AND IN THE HIP. SLEEP NOT GREAT AT BEST 4 HOURS PAIN TODAY IS 8/10 TODAY, AND DOWN TO 4-5/10 ON BETTER DAYS. . CURRENT MEDICATIONS TAKING TRAVATAN Z 0.004 % SOLUTION 1 DROP INTO AFFECTED EYE IN THE EVENING OPHTHALMIC ONCE A DAY TAKING STOOL SOFTENER 100 MG CAPSULE 1 CAPSULE NEEDED ORALLY ONCE A DAY TAKING FISH OIL 1200 MG CAPSULE 1 CAPSULE ORALLY ONCE A DAY TAKING GABAPENTIN 800 MG TABLET 1 TABLET ORALLY THREE TIMES A DAY TAKING PRAVACHOL 20 20 MG TABLET ORAL DAILY TAKING LISINOPRIL 10 10 MG TABLET 1 TABLET ORAL DAILY TAKING METOPROLOL TARTRATE 25 MG TABLET 1 TABLET WITH FOOD ORALLY TWICE A DAY TAKING MULTIVITAMINS 1 OTC DIRECTED ORALLY DAILY, NOTES: NOT TAKING TAKING AQUAPHOR STANDARD OINTMENT DIRECTED EXTERNALLY BID, NOTES: NOT TAKING TAKING GLIPIZIDE XL 10 MG TABLET EXTENDED RELEASE 24 HOUR 1 TABLET ORALLY TWICE DAILY TAKING METFORMIN HCL 1000 MG TABLET 2 TABS ORALLY TWICE A DAY TAKING LANTUS 100 UNIT/ML SOLUTION 80 UNITS SUBCUTANEOUS TWICE DAILY, DOSED TO BS READINGS TAKING HUMALOG 100 UNIT/ML SOLUTION 12 UNITS SUBCUTANEOUS S/S COVERAGE, NEEDED TAKING ASPIR-81 81 MG TABLET DELAYED RELEASE 1 TABLET ORALLY TWICE A DAY TAKING LIDOCAINE 4 % CREAM DIRECTED EXTERNALLY TAKING NIACOR 500 MG TABLET 2 TABLET2 AFTER MEALS ORALLY DAILY TAKING FENTANYL 75 MCG/HR PATCH 72 HOUR 1 PATCH TO SKIN TRANSDERMAL APPLY 1 PAYCH Q 72 HRS CHRONIC PAIN MDD=1 TAKING OXYCODONE HCL 10 MG TABLET 1 -2 TABLET ORALLY EVERY 6 HRS PRN PAIN MDD=4 NOT-TAKING SANTYL 250 UNIT/GM OINTMENT 1 APPLICATION TO AFFECTED AREA EXTERNALLY ONCE A DAY NOT-TAKING TRILIPIX 135 MG CAPSULE DELAYED RELEASE 1 CAPSULE ORALLY ONCE A DAY NOT-TAKING NIASPAN ER 1000 MG 1 TAB ORAL DAILY MEDICATION LIST REVIEWED AND RECONCILED WITH THE PATIENT PAST MEDICAL HISTORY INSULIN-DEPENDENT DIABETES UNCONTROLLED LEFT FOOT OSTEOMYELITIS WITH GANGRENE CULTURE POSITIVE FOR MRSA AND ESCHERICHIA COLI HYPERTENSION HYPERCHOLESTEROLEMIA TOBACCO ABUSE GLAUCOMA 10/02/2012 OSTEOMYELITIS OF LEFT GREAT TOE STATUS POST AMPUTATION DISCHARGED HOME ON 10/08 WITH DOXYCYCLINE FOR 10 DAYS CORONARY ARTERY DISEASE WITH STENT PLACEMENT 2001 [facility] / DR RAGLAND SLEEP APNEA OSTEOARTHRITIS LOW TESTOSTERONE DEGENERATIVE HIP DISEASE STENTS PLACED DERMATITIS HLA B27 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 SOCIAL HISTORY GENERAL: TOBACCO USE ARE YOU A:CURRENT SMOKER HOW MANY CIGARETTES A DAY DO YOU SMOKE?6-10 HOW SOON AFTER YOU WAKE UP DO YOU SMOKE YOUR FIRST CIGARETTE?AFTER 60 MIN HOW OFTEN DO YOU SMOKE CIGARETTES?EVERY DAY PATIENT COUNSELED ON THE DANGERS OF TOBACCO USE AND URGED TO QUIT:12/22/2016 ARE YOU INTERESTED IN QUITTING?NOT READY TO QUIT COUNSELED THE PATIENT ON SMOKING EFFECTS, EDUCATION [id number]/08/2017 SMOKING CESSATION INFORMATION GIVEN02/21/2017 BMI CARE GOAL FOLLOW-UP ABOVE NORMAL BMI FOLLOW-UPDIETARY MANAGEMENT EDUCATION, GUIDANCE, AND COUNSELING ALCOHOL SCREENING DID YOU HAVE A DRINK CONTAINING ALCOHOL IN THE PAST YEAR?NO POINTS0 INTERPRETATIONNEGATIVE RECREATIONAL DRUG USE DENIES, DRUG USE? NO. CAFFEINE 2-5/DAY, CAFFEINE USE? NO . OCCUPATION: DISABLED. DIET: CARBOHYDRATE CONTROLLED, NO CONCENTRATED SWEETS., NO ADDED SALT. EXERCISE: NO REGULAR EXERCISE. MARITAL STATUS: . OTHERS AT HOME: SPOUSE. PETS: 1 CAT. ISLAM NO AMISH BELIEFS THAT WOULD IMPACT HEALTH CARE. LANGUAGE GE[place]GIAN. LEARNING BARRIERS / SPECIAL NEEDS CHANGE FROM LAST VISIT?NO BARRIERS TO LEARNING?NO HEARING IMPAIRED?NO VISION IMPAIRED?YES :CORRECTIVE LENSES COGNITIVELY IMPAIRED?NO READINESS TO LEARN?YES LEARNING PREFERENCES?NO LEARNING CAPABILITIES PRESENT?YES EMOTIONAL BARRIERS?NO SPECIAL DEVICES?YES : PT USES A CANE AT ALL TIMES. NEEDS ASSISTANCE WITH HOME CARE.HAS HEARING AIDS. HAS NO TEETH. PSYCHOLOGICAL HX TREATMENTNO PAIN CLINIC PFS, CLERGY, PUBLIC HEALTH REFERRALS PFS REFERRAL NEEDED?NO CLERGY REFERRAL NEEDED?NO PUBLIC HEALTH REFERRAL NEEDED?NO WAS THE PROVIDER NOTIFIED OF ANY PERTINENT INFO?NO PATIENT: ____. ADVANCE DIRECTIVES HEALTH CARE PROXY?NO HCP PAPERS GIVEN TO PATIENT POWER OF FURNACE PUNCHER?NO TRAVEL OUTSIDE US: NO TRAVEL OUTSIDE OF US IN THE LAST 21 DAYS. HOUSING: OWNS HOME. DOMESTIC VIOLENCE NONE. REVIEW OF SYSTEMS REVIEWED BY: PROVIDER: MARY GUZMÁN . CONSTITUTIONAL: ANY CHANGE IN YOUR MEDICAL CONDITION? NO . CHILLS NO . FEVER NO . INFECTION: DO YOU HAVE NEW INFECTIONS? NO . DO YOU HAVE HISTORY OF MRSA? NO . MUSCULOSKELETAL: ANY NEW PATTERNS OF PAIN OR NUMBNESS? NO . GASTROENTEROLOGY: ANY NEW CHANGE IN BOWEL CONTROL? NO . GENITOURINARY: ANY NEW CHANGE IN BLADDER CONTROL? NO . IS THERE A CHANCE YOU COULD BE ? NO . HEMATOLOGY/LYMPH: DO YOU TAKE ANY BLOOD THINNERS? (FOR EXAMPLE- COUMADIN, PLAVIX, AGGRENOX, PLATEL, PRADAXA, OR XARELTO) NO . WHEN WAS YOUR LAST DOSE? DATE: TIME: . NEUROLOGY: HAVE YOU FALLEN IN THE PAST 6 MONTHS? NO . ANY NEW EXTREMITY NUMBNESS OR WEAKNESS? NO . CARDIOLOGY: DO YOU HAVE A PACEMAKER OR DEFIBRILLATOR? NO . RESPIRATORY: HAVE YOU BEEN SICK IN THE PAST WEEK? NO . FEVER NO . FLU LIKE SYMPTOMS? NO . COUGH NO . INTEGUMENTARY: DO YOU HAVE ANY RASHES OR OPEN SORES? YES . ALLERGIC/IMMUNO: ARE YOU ALLERGIC TO SHELLFISH OR IV DYE? NO . ANY NEW ALLERGIES? NO . PSYCHIATRIC: DO YOU HAVE THOUGHTS OF HURTING YOURSELF OR SOMEONE ELSE? NO . ARE YOU ABUSED, NEGLECTED, OR IN AN UNSAFE ENVIRONMENT? NO . ENDOCRINOLOGY: ARE YOU DIABETIC? YES UNDER CONTROL . OTHER: DO YOU NEED ANY PRESCRIPTIONS? NO . IF YES, PLEASE LIST: ____ . ANY NEW PROBLEMS WITH YOUR MEDICATIONS? NO . WHEN DID YOU LAST EAT? ____ . WHEN DID YOU LAST DRINK? ____ . WHAT DID YOU LAST DRINK? ____ . NAME OF PERSON DRIVING YOU HOME? ____ . DO YOU HAVE ANY OTHER QUESTIONS OR CONCERNS NO . VITAL SIGNS WT 214.2 LBS, HT 71 IN, BMI 29.87 INDEX, BP 95/65 MM HG, HR 126 /MIN, RR 18 /MIN, TEMP 98.0 F, OXYGEN SAT % 100%, NA INITIALS AW 1527. EXAMINATION GENERAL EXAMINATION: GENERAL APPEARANCE:STANDS THROUGHOUT APPOINTMENT LEANING AGAINST EXAM TABLE. PSYCHALERT , ORIENTED X 3 , APPROPRIATE MOOD AND AFFECT, SPEACH MONOTONE . LUNGS:CLEAR TO AUSCULTATION BILATERALLY. HEART:HEART RATE REGULAR. ABDOMEN:TOUGH ABD SURFACE. BOWEL SOUNDS PRESENT. MUSCULOSKELETAL:LEFT LEG ROTATED OUTWARD AT HIP. LEG STIFF. LEFT LEG DRESSING IN PLACE, CLEAN AND DRY. TENDER WITH PALPATION OVER LOW BACK. GAIT ANTALGIC. CANE USED FOR BALANCE. 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 MAY INCREASE OXYCODE TO MAX 6/DAY WHEN THE CHANGE HAPPENS. CLINICAL NOTES: ISTOP REGISTRY REVIEWED AND DEMNOSTRATES COMPLLIANCE. BRINGS IN MEDICATIONS WHICH IS APPROPRIATE FOR WHAT WAS DISPENSED. RECENT URINE TOXICOLOGY REVIEWED. NO UNAUTHORIZED MEDICATIONS. NO ILLICIT SUBSTANCES AND PRESCRIBED MEDICATIONS WERE PRESENT. PROCEDURE CODES FA211 ESTABILISHED PATIENT [facility] FACILITY CHARGE G8730 PAIN ASSESS POS TOOL F/U PLAN DOC G8427 DOC MEDS VERIFIED W/PT OR RE DISPOSITION & COMMUNICATION FOLLOW UP 7-8 WEEKS (REASON: LEG PAIN) ELECTRONICALLY SIGNED BY BEBETO GORE ON 03/11/2017 AT 04:19 PM EDT DISCLAIMER : THIS IS A VISIT SUMMARY EXTRACTED FROM THE [employer] CHART. IT IS NOT A COPY OF THE [employer] PROGRESS NOTE. MEEK
== END ==
LOC: M PAIN 14:40
PROVIDERS: ATTEND Nurse Practitioner Family
DX: G89.29 Other chronic pain (principal); M25.552 Pain in left hip; M15.0 Primary generalized (osteo)arthritis; E11.42 Type 2 diabetes mellitus with diabetic polyneuropathy; I10 Essential (primary) hypertension; E78.00 Pure hypercholesterolemia, unspecified; F17.210 Nicotine dependence, cigarettes, uncomplicated; G47.30 Sleep apnea, unspecified; Z79.4 Long term (current) use of insulin; Z79.82 Long term (current) use of aspirin; Z79.891 Long term (current) use of opiate analgesic; Z79.899 Other long term (current) drug therapy

== ENCOUNTER → 2017-03-10 | Outpatient (REF) | payer MEDICARE | LOC: M LAB REF 14:38 | PROVIDERS: ATTEND Surgery | DX: E11.622 Type 2 diabetes mellitus with other skin ulcer (principal); L97.821 Non-pressure chronic ulcer of other part of left lower leg limited to breakdown of skin; L97.421 Non-pressure chronic ulcer of left heel and midfoot limited to breakdown of skin ==

== ENCOUNTER → 2017-04-17 | Outpatient (CLI) | payer MEDICARE ==
--- NOTE | 2017-05-16 01:52 | ECWPNPC ---
PATIENT NAME: DIANA OLIVERA : 1955 GENDER: MALE VISIT DATE: 04/17/2017 DISCHARGE DATE: 04/17/17 1445 VISIT LOCKED DATE TIME: PHYSICIAN: MARY MATA RESOURCE: MARY MATA REASON FOR APPOINTMENT 1. LEG PAIN HISTORY OF PRESENT ILLNESS HISTORY OF PRESENT ILLNESS: PAIN THE PATIENT DESCRIBES THE PAIN... FALL RISK SCREENING: SCREENING :NO FALLS IN THE PAST YEAR TODAY'S VISIT: NOTES: RATES PAIN TODAY 6/10. NOTES PAIN IS UNCHANGED BUT THE LEGS ARE FINALLY BEGINNING TO HEAL. SAW DR HOLGUIN - [facility] SURGEON. DR WHALEN IS PLEASED WITH THE WOUND HEALING. PT REPORTS HE IS VERY WORRIED ABOUT THE WEAN PROCESS WITH HIS FENTANYL PATCH. . CURRENT MEDICATIONS TAKING OXYCODONE HCL 10 MG TABLET 1 -2 TABLET ORALLY EVERY 6 HRS PRN PAIN MDD=6 TAKING FENTANYL 50 MCG/HR PATCH 72 HOUR 1 PATCH TO SKIN TRANSDERMAL APPLY 1 PAYCH Q 72 HRS CHRONIC PAIN MDD=1 TAKING TRAVATAN Z 0.004 % SOLUTION 1 DROP INTO AFFECTED EYE IN THE EVENING OPHTHALMIC ONCE A DAY TAKING STOOL SOFTENER 100 MG CAPSULE 1 CAPSULE NEEDED ORALLY ONCE A DAY TAKING FISH OIL 1200 MG CAPSULE 1 CAPSULE ORALLY ONCE A DAY TAKING GABAPENTIN 800 MG TABLET 1 TABLET ORALLY THREE TIMES A DAY TAKING PRAVACHOL 20 20 MG TABLET ORAL DAILY TAKING LISINOPRIL 10 10 MG TABLET 1 TABLET ORAL DAILY TAKING METOPROLOL TARTRATE 25 MG TABLET 1 TABLET WITH FOOD ORALLY TWICE A DAY TAKING MULTIVITAMINS 1 OTC DIRECTED ORALLY DAILY, NOTES: NOT TAKING TAKING AQUAPHOR STANDARD OINTMENT DIRECTED EXTERNALLY BID, NOTES: NOT TAKING TAKING GLIPIZIDE XL 10 MG TABLET EXTENDED RELEASE 24 HOUR 1 TABLET ORALLY TWICE DAILY TAKING METFORMIN HCL 1000 MG TABLET 2 TABS ORALLY TWICE A DAY TAKING LANTUS 100 UNIT/ML SOLUTION 80 UNITS SUBCUTANEOUS TWICE DAILY, DOSED TO BS READINGS TAKING HUMALOG 100 UNIT/ML SOLUTION 12 UNITS SUBCUTANEOUS S/S COVERAGE, NEEDED TAKING ASPIR-81 81 MG TABLET DELAYED RELEASE 1 TABLET ORALLY TWICE A DAY TAKING LIDOCAINE 4 % CREAM DIRECTED EXTERNALLY TAKING NIACOR 500 MG TABLET 2 TABLET2 AFTER MEALS ORALLY DAILY TAKING TRILIPIX 135 MG CAPSULE DELAYED RELEASE 1 CAPSULE ORALLY ONCE A DAY TAKING NIASPAN ER 1000 MG 1 TAB ORAL DAILY NOT-TAKING SANTYL 250 UNIT/GM OINTMENT 1 APPLICATION TO AFFECTED AREA EXTERNALLY ONCE A DAY MEDICATION LIST REVIEWED AND RECONCILED WITH THE PATIENT PAST MEDICAL HISTORY INSULIN-DEPENDENT DIABETES UNCONTROLLED LEFT FOOT OSTEOMYELITIS WITH GANGRENE CULTURE POSITIVE FOR MRSA AND ESCHERICHIA COLI HYPERTENSION HYPERCHOLESTEROLEMIA TOBACCO ABUSE GLAUCOMA 10/02/2012 OSTEOMYELITIS OF LEFT GREAT TOE STATUS POST AMPUTATION DISCHARGED HOME ON 10/08 WITH DOXYCYCLINE FOR 10 DAYS CORONARY ARTERY DISEASE WITH STENT PLACEMENT [address] [facility] / DR [place]AG[place] SLEEP APNEA OSTEOARTHRITIS LOW TESTOSTERONE DEGENERATIVE HIP DISEASE STENTS PLACED DERMATITIS HLA B27 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 SURGICAL HISTORY MELANOMA LEFT EYELID 1998 RIGHT SHOULDER ROTATOR CUFF REPAIR 1998 CARDIAC CATHERTIZATION, STENT PLACEMENT 2001 C-6 CORPECTOMY AND FUSION C-5, C-6 WITH FIBULAR STRUT GRAFT AND IN ANT-CER ANTERIOR CERVICAL PLATE 2002 LEFT FOOT, DIGITS 4, 5 2011 AMPUTATION LEFT FOOT, GREAT TOE 10/02/2012 LEFT FOOT BONE DEBRIDEMENT 12/19/2012 STENTS PLACED RIGHT COMMON AND EXTERNAL ILIAC, LEFT COMMON AND EXTERNAL ILIAC 02/09/2016 SOCIAL HISTORY GENERAL: TOBACCO USE ARE YOU A:CURRENT SMOKER HOW MANY CIGARETTES A DAY DO YOU SMOKE?6-10 HOW SOON AFTER YOU WAKE UP DO YOU SMOKE YOUR FIRST CIGARETTE?AFTER 60 MIN HOW OFTEN DO YOU SMOKE CIGARETTES?EVERY DAY PATIENT COUNSELED ON THE DANGERS OF TOBACCO USE AND URGED TO QUIT:12/22/2016 ARE YOU INTERESTED IN QUITTING?NOT READY TO QUIT COUNSELED THE PATIENT ON SMOKING EFFECTS, EDUCATION [id number]/08/2017 SMOKING CESSATION INFORMATION GIVEN02/21/2017 BMI CARE GOAL FOLLOW-UP ABOVE NORMAL BMI FOLLOW-UPDIETARY MANAGEMENT EDUCATION, GUIDANCE, AND COUNSELING ALCOHOL SCREENING DID YOU HAVE A DRINK CONTAINING ALCOHOL IN THE PAST YEAR?NO POINTS0 INTERPRETATIONNEGATIVE RECREATIONAL DRUG USE DENIES, DRUG USE? NO. CAFFEINE 2-5/DAY, CAFFEINE USE? NO . OCCUPATION: DISABLED. DIET: CARBOHYDRATE CONTROLLED, NO CONCENTRATED SWEETS., NO ADDED SALT. EXERCISE: NO REGULAR EXERCISE. MARITAL STATUS: . OTHERS AT HOME: SPOUSE. PETS: 1 CAT. CHRISTIANITY NO RESTORATIONISM BELIEFS THAT WOULD IMPACT HEALTH CARE. LANGUAGE HEBREW. LEARNING BARRIERS / SPECIAL NEEDS CHANGE FROM LAST VISIT?NO BARRIERS TO LEARNING?NO HEARING IMPAIRED?NO VISION IMPAIRED?YES :CORRECTIVE LENSES COGNITIVELY IMPAIRED?NO READINESS TO LEARN?YES LEARNING PREFERENCES?NO LEARNING CAPABILITIES PRESENT?YES EMOTIONAL BARRIERS?NO SPECIAL DEVICES?YES : PT USES A CANE AT ALL TIMES. NEEDS ASSISTANCE WITH HOME CARE.HAS HEARING AIDS. HAS NO TEETH. PSYCHOLOGICAL HX TREATMENTNO PAIN CLINIC PFS, CLERGY, PUBLIC HEALTH REFERRALS PFS REFERRAL NEEDED?NO CLERGY REFERRAL NEEDED?NO PUBLIC HEALTH REFERRAL NEEDED?NO WAS THE PROVIDER NOTIFIED OF ANY PERTINENT INFO?NO HAS THE PATIENT BEEN EDUCATED REGARDING HIS/HER PLAN OF CARE?YES HAS THE PATIENT BEEN EDUCATED REGARDING PAIN, THE RISK FOR PAIN, THE IMPORTANCE OF EFFECTIVE PAIN MANAGEMENT, AND THE PAIN ASSESSMENT PROCESS?YES PATIENT: ____. ADVANCE DIRECTIVES HEALTH CARE PROXY?NO HCP PAPERS GIVEN TO PATIENT POWER OF ANIMAL DAYCARE PROVIDER?NO TRAVEL OUTSIDE US: NO TRAVEL OUTSIDE OF US IN THE LAST 21 DAYS. HOUSING: OWNS HOME. DOMESTIC VIOLENCE NONE. HOSPITALIZATION/MAJOR DIAGNOSTIC PROCEDURE PANCREATITIS 2008 LEFT FOOT INFECTION 09/30/2012 LEFT FOOT INFECTION 01/16/2013 LEFT FOOT INFECTION 02/06/13 BLOOD TRANSFUSION 02/13/13 LEFT LEG INFECTION 11/06/15 LEG SWELLING JANUARY 2016 CELLULITIS AND PAIN 04/06/16 - 04/08/16 INFECTION IN LEFT LEG DECEMBER 2016 REVIEW OF SYSTEMS REVIEWED BY: PROVIDER: MARY GUZMÁN . CONSTITUTIONAL: ANY CHANGE IN YOUR MEDICAL CONDITION? NO . CHILLS NO . FEVER NO . INFECTION: DO YOU HAVE NEW INFECTIONS? NO . DO YOU HAVE HISTORY OF MRSA? NO . MUSCULOSKELETAL: ANY NEW PATTERNS OF PAIN OR NUMBNESS? NO . GASTROENTEROLOGY: ANY NEW CHANGE IN BOWEL CONTROL? NO . GENITOURINARY: ANY NEW CHANGE IN BLADDER CONTROL? NO . IS THERE A CHANCE YOU COULD BE ? NO . HEMATOLOGY/LYMPH: DO YOU TAKE ANY BLOOD THINNERS? (FOR EXAMPLE- COUMADIN, PLAVIX, AGGRENOX, PLATEL, PRADAXA, OR XARELTO) NO . WHEN WAS YOUR LAST DOSE? DATE: TIME: . NEUROLOGY: HAVE YOU FALLEN IN THE PAST 6 MONTHS? NO . ANY NEW EXTREMITY NUMBNESS OR WEAKNESS? NO . CARDIOLOGY: DO YOU HAVE A PACEMAKER OR DEFIBRILLATOR? NO . RESPIRATORY: HAVE YOU BEEN SICK IN THE PAST WEEK? NO . FEVER NO . FLU LIKE SYMPTOMS? NO . COUGH NO . INTEGUMENTARY: DO YOU HAVE ANY RASHES OR OPEN SORES? YES, PT STATES HE HAS OPEN SORES AND RASHES TO BILAT LOWER LEGS. PT STATES THE WOUND CENTER IS SEEING HIM FOR THIS WITH IMPROVEMENT . ALLERGIC/IMMUNO: ARE YOU ALLERGIC TO SHELLFISH OR IV DYE? NO . ANY NEW ALLERGIES? NO . PSYCHIATRIC: DO YOU HAVE THOUGHTS OF HURTING YOURSELF OR SOMEONE ELSE? NO . ARE YOU ABUSED, NEGLECTED, OR IN AN UNSAFE ENVIRONMENT? NO . ENDOCRINOLOGY: ARE YOU DIABETIC? YES . OTHER: DO YOU NEED ANY PRESCRIPTIONS? NO . IF YES, PLEASE LIST: ____ . ANY NEW PROBLEMS WITH YOUR MEDICATIONS? NO . WHEN DID YOU LAST EAT? ____ . WHEN DID YOU LAST DRINK? ____ . WHAT DID YOU LAST DRINK? ____ . NAME OF PERSON DRIVING YOU HOME? ____ . DO YOU HAVE ANY OTHER QUESTIONS OR CONCERNS YES, PT TO DISCUSS FENTANYL PATCH WITH SHANNEN WALKER. PT EXPRESSES CONCERN OF WEANING DOWN TOO QUICKLY FOR PAIN CONTROL . VITAL SIGNS WT 225 LBS, HT 71 IN, BMI 31.38 INDEX, BP 153/72 MM HG, HR 103 /MIN, RR 20 /MIN, TEMP 99.9 F, OXYGEN SAT % 99%, NA INITIALS SC 14:15, REVIEWED BY: GRAHAM. EXAMINATION GENERAL EXAMINATION: GENERAL APPEARANCE:STANDS THROUGHOUT APPOINTMENT LEANING AGAINST EXAM TABLE. PSYCHALERT , ORIENTED X 3 , APPROPRIATE MOOD AND AFFECT, SPEACH MONOTONE . LUNGS:CLEAR TO AUSCULTATION BILATERALLY. HEART:HEART RATE REGULAR. ABDOMEN:TOUGH ABD SURFACE. BOWEL SOUNDS PRESENT. MUSCULOSKELETAL:LEFT LEG ROTATED OUTWARD AT HIP. LEG STIFF. LEFT LEG DRESSING IN PLACE, CLEAN AND DRY. TENDER WITH PALPATION OVER LOW BACK. GAIT ANTALGIC. CANE USED FOR BALANCE. 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 CONTINUE TO WORK WITH DR WHALEN FOR WOUND CARE. CALL WHEN SCRIPTS DUE. CLINICAL NOTES: ISTOP REGISTRY REVIEWED AND DEMNOSTRATES COMPLLIANCE. (REF # [id number]) BRINGS IN MEDICATIONS WHICH IS APPROPRIATE FOR WHAT WAS DISPENSED. RECENT URINE TOXICOLOGY REVIEWED. NO UNAUTHORIZED MEDICATIONS. NO ILLICIT SUBSTANCES AND PRESCRIBED MEDICATIONS WERE PRESENT. PROCEDURE CODES FA211 ESTABILISHED PATIENT [facility] FACILITY CHARGE G9798 PAIN ASSESS POS TOOL F/U PLAN DOC G8427 DOC MEDS VERIFIED W/PT OR RE DISPOSITION & COMMUNICATION FOLLOW UP 2 MONTHS (REASON: LEG/HIP PAIN) ELECTRONICALLY SIGNED BY BEBETO GORE ON 05/15/2017 AT 09:05 AM EDT DISCLAIMER : THIS IS A VISIT SUMMARY EXTRACTED FROM THE [employer] CHART. IT IS NOT A COPY OF THE [employer] PROGRESS NOTE. MEEK
== END ==
LOC: M PAIN 14:15
PROVIDERS: ATTEND Nurse Practitioner Family
DX: G89.29 Other chronic pain (principal); M25.552 Pain in left hip; M15.0 Primary generalized (osteo)arthritis; E11.9 Type 2 diabetes mellitus without complications; F17.210 Nicotine dependence, cigarettes, uncomplicated; G47.30 Sleep apnea, unspecified; Z79.891 Long term (current) use of opiate analgesic; Z79.4 Long term (current) use of insulin; Z79.82 Long term (current) use of aspirin; Z79.899 Other long term (current) drug therapy

== ENCOUNTER → 2017-04-21 | Outpatient (REF) | payer MEDICARE | LOC: M LAB REF 16:19 | PROVIDERS: ATTEND Surgery | DX: L97.821 Non-pressure chronic ulcer of other part of left lower leg limited to breakdown of skin (principal); E11.621 Type 2 diabetes mellitus with foot ulcer ==

== ENCOUNTER → 2017-07-25 | Outpatient (CLI) | payer MEDICARE | LOC: M PAIN 13:45 | DX: E11.42 Type 2 diabetes mellitus with diabetic polyneuropathy (principal); M15.9 Polyosteoarthritis, unspecified; I10 Essential (primary) hypertension; E78.00 Pure hypercholesterolemia, unspecified; F17.210 Nicotine dependence, cigarettes, uncomplicated; M14.672 Charcot's joint, left ankle and foot; Z79.891 Long term (current) use of opiate analgesic; Z79.899 Other long term (current) drug therapy; Z79.4 Long term (current) use of insulin; Z79.82 Long term (current) use of aspirin | CPT/HCPCS: G0463 ==

== ENCOUNTER → 2017-09-13 | Outpatient (CLI) | payer MEDICARE | LOC: M PAIN 14:00 | DX: E11.42 Type 2 diabetes mellitus with diabetic polyneuropathy (principal); M15.9 Polyosteoarthritis, unspecified; I10 Essential (primary) hypertension; E78.00 Pure hypercholesterolemia, unspecified; F17.210 Nicotine dependence, cigarettes, uncomplicated; Z79.891 Long term (current) use of opiate analgesic; Z79.4 Long term (current) use of insulin; Z79.82 Long term (current) use of aspirin; Z79.899 Other long term (current) drug therapy | CPT/HCPCS: G0463 ==

== ENCOUNTER 2017-10-14 22:10 | Inpatient (IN) | payer MEDICARE ==
[2017-10-14] MEDS: DOCUSATE SODIUM 100 MG CAP PO (21:00)
[2017-10-14] MEDS: SENOKOT S TAB PO (21:00)
[2017-10-14] MEDS: ASPIRIN 81 MG CHEW TABLET PO (21:00)
[2017-10-14] MEDS: METOPROLOL TART 25 MG TABLET PO (21:00)
[2017-10-14] MEDS: fentaNYL 100 MCG/HR PATCH TD (21:00)
[2017-10-14] MEDS: NIACIN SR (NIASPAN) 500 MG TAB PO ×2 (21:00)
[2017-10-14] MEDS: SIMVASTATIN 20 MG TAB PO (21:00)
[2017-10-14] MEDS: LATANOPROST 0.005% OPHTH SOLN 2.5 ML OU (21:00)
[~2017-10-14 22:10] MED LIST changes: -/GLIP10TAB PO; -/LINE60TA PO; -/METO25TAB PO; -/PRAV20TA PO; -AMOX875T19 PO; -AQUAOI TOP; -ASPI1TAB PO; -ASPI81TA7 PO; -BACT800T5 PO; +BISACODYL 10 MG SUPP PR; -CEFD1CAP8 PO; -CEFD300CAP PO; -DOCU10ELUD PO; +DOCUSATE SODIUM 100 MG CAP PO; -DOXY100T2 PO; -FENT10PA TD; -FENT50DI21 TD; -FERR1TAB8 PO; -FISH1000 PO; -FISH1200 PO; -FISH120012 PO; -GABA-279 PO; -GABA400C PO; -GABA600T PO; -GABA800T PO; -GLIP1TAB11 PO; -HUMA100I SC; -HYDR-3713 PO; -INSUHUMDS SC; -INSULANT SC; -INVA1INJ IV; -KEFL500C17 PO; -LEVO500T PO; -LIDO4CRE2 TOP; -LISI10TA4 PO; -LISI5TAB PO; -LORTTAB5 PO; -METF1000 PO; -METF10004 PO; -METO25TA4 PO; -METO25TAB PO; +MOM 30ML SUSPENSION UDC PO; -NIAC1TAB5 PO; -NIAS1000 PO; -NICO14PA TD; -NORC5TAB PO; +ONDANSETRON 4MG/2ML VIAL (J2405) IV; -OXYC10TA12 PO; -OXYC60TA8 PO; -PERCOCET PO; -PRAV1TAB39 PO; -SENO8.6T9 PO; -TEFL600I IV; -TRAV0.00 OU; -TRAV04OPD OU; -TRIA0.022 TOP; -TRIL135C PO; -TRIL135C6 PO; -VICOBULK PO; -VITMTA PO; -niaspan PO
[2017-10-14 23:05] LABS: BASO # 0.1 10^3/uL (0.0-0.2); BASO % 0.7 % (0.0-1.0); EOS # 0.2 10^3/uL (0.0-0.50); EOS % 1.6 % (0.0-3.0); HEMATOCRIT 39.8 % (42.0-52.0); HEMOGLOBIN 11.9 g/dl (13.5-17.5); IMMATURE GRANULOCYTE % 0.4 % (0-3.0); LYMPH # 1.9 10^3/uL (1.5-4.5); LYMPH % 20.4 % (24.0-44.0); MEAN CORPUSCULAR HEMOGLOBIN 22.9 pg (27.0-33.0); MEAN CORPUSCULAR HGB CONC 29.9 g/dl (32.0-36.5); MEAN CORPUSCULAR VOLUME 76.7 fl (80.0-96.0); MONO # 0.8 10^3/uL (0.0-0.8); MONO % 9.2 % (0.0-5.0); NEUTROPHILS # 6.2 10^3/uL (1.8-7.7); NEUTROPHILS % 67.7 % (36.0-66.0); PLATELET COUNT, AUTOMATED 209 10^3/uL (150-450); RED BLOOD COUNT 5.19 10^6/uL (4.30-6.10); RED CELL DISTRIBUTION WIDTH 16.7 % (11.5-14.5); WHITE BLOOD COUNT 9.2 10^3/uL (4.0-10.0)
[2017-10-14 23:18] LABS: INR 1.07; PROTHROMBIN TIME 14.1 SECONDS (12.4-14.5)
[2017-10-14 23:19] LABS: PARTIAL THROMBOPLASTIN TIME 39.8 SECONDS (26.8-37.9)
[2017-10-14 23:34] LABS: ANION GAP 3 MEQ/L (8-16); BLOOD UREA NITROGEN 13 MG/DL (7-18); CALCIUM LEVEL 8.8 MG/DL (8.8-10.2); CARBON DIOXIDE LEVEL 30 MEQ/L (21-32); CHLORIDE LEVEL 106 MEQ/L (98-107); CREATININE FOR GFR 0.87 MG/DL (0.70-1.30); GLOMERULAR FILTRATION RATE > 60.0 (>49); GLUCOSE, FASTING 155 MG/DL (70-100); POTASSIUM SERUM 3.9 MEQ/L (3.5-5.1); SODIUM LEVEL 139 MEQ/L (136-145)
[2017-10-15] MEDS ORDERED: CALCIUM CARBONATE 500 MG CHEW U/D PO (00:30)
[2017-10-15] MEDS ORDERED: FENTANYL REMOVAL DOCUMENTATION MISC XX (00:30)
[2017-10-15] MEDS ORDERED: ONDANSETRON 4MG/2ML VIAL (J2405) IM (00:30)
[2017-10-15] MEDS ORDERED: GLUCOSE 4 GM CHEW TABLET PO (00:45)
[2017-10-15] MEDS ORDERED: DEXTROSE 50% 50 ML SYRINGE IV (00:45)
[2017-10-15] MEDS ORDERED: GLUCAGON FOR INJ 1 MG VIAL (J1610) SC (00:45)
[2017-10-15] MEDS: oxyCODONE 5MG TAB PO ×4 (01:32→23:12)
[2017-10-15] MEDS: PIPERACILLIN/TAZOBACTAM SOD 3.375 GM in APPROPRIATE DILUENT 1 EA IV ×4 (05:52→17:12)
[2017-10-15] MEDS: DOCUSATE SODIUM 100 MG CAP PO ×2 (09:00→21:00)
[2017-10-15] MEDS ORDERED: PRAVASTATIN 20 MG TAB PO (09:00)
[2017-10-15] MEDS: ENOXAPARIN 40 MG/0.4 ML SYRINGE (J1650) SC (10:25)
[2017-10-15] MEDS: GABAPENTIN 400 MG CAP PO ×4 (10:27→22:22)
[2017-10-15] MEDS: MULTIVITAMINS/MINERALS THERAP 1 TAB PO (10:27)
[2017-10-15] MEDS: SENOKOT S TAB PO ×2 (10:31→21:00)
[2017-10-15] MEDS: glipiZIDE XL 5 MG TABCR PO (10:31)
[2017-10-15] MEDS: metFORMIN (GLUCOPHAGE) 1000 MG TABLET PO ×2 (10:31→17:10)
[2017-10-15] MEDS: ASPIRIN 81 MG CHEW TABLET PO ×2 (10:32→22:22)
[2017-10-15] MEDS: METOPROLOL TART 25 MG TABLET PO ×2 (10:32→22:23)
[2017-10-15] MEDS: NICOTINE 21MG/24HR 1 EA TRANSDERMAL TD (10:33)
[2017-10-15] MEDS: HumuLIN N INSULIN (NovoLIN N) PER UNIT SC ×2 (10:41→17:13)
[2017-10-15] MEDS: NORCO, ANEXSIA 5/325MG TABLET (HYDROcodone/ACETAMINOPHEN) PO (14:07)
[2017-10-15] MEDS: LATANOPROST 0.005% OPHTH SOLN 2.5 ML OU (21:00)
[2017-10-15] MEDS: HumaLOG INSULIN (NovoLOG) PER UNIT SC (21:00)
[2017-10-15 21:14] LABS: HEMATOCRIT 42.9 % (42.0-52.0); HEMOGLOBIN 12.7 g/dl (13.5-17.5); MEAN CORPUSCULAR HEMOGLOBIN 22.9 pg (27.0-33.0); MEAN CORPUSCULAR HGB CONC 29.6 g/dl (32.0-36.5); MEAN CORPUSCULAR VOLUME 77.4 fl (80.0-96.0); PLATELET COUNT, AUTOMATED 219 10^3/uL (150-450); RED BLOOD COUNT 5.54 10^6/uL (4.30-6.10); RED CELL DISTRIBUTION WIDTH 16.8 % (11.5-14.5); WHITE BLOOD COUNT 10.2 10^3/uL (4.0-10.0)
[2017-10-15 21:30] LABS: ERYTHROCYTE SEDIMENTATION RATE 8 mm/hr (0-20); ESTIMATED AVERAGE GLUCOSE 194 MG/DL (60-110); HEMOGLOBIN A1c 8.4 %
[2017-10-15 21:31] LABS: ANION GAP 5 MEQ/L (8-16); BLOOD UREA NITROGEN 22 MG/DL (7-18); C REACTIVE PROTEIN QUANTITATIV 1.57 MG/DL (0.00-0.30); CALCIUM LEVEL 8.8 MG/DL (8.8-10.2); CARBON DIOXIDE LEVEL 28 MEQ/L (21-32); CHLORIDE LEVEL 107 MEQ/L (98-107); CREATININE FOR GFR 1.16 MG/DL (0.70-1.30); GLOMERULAR FILTRATION RATE > 60.0 (>49); GLUCOSE, FASTING 146 MG/DL (70-100); MAGNESIUM LEVEL 1.5 MG/DL (1.8-2.4); POTASSIUM SERUM 3.9 MEQ/L (3.5-5.1); SODIUM LEVEL 140 MEQ/L (136-145)
[2017-10-15] MEDS: SIMVASTATIN 20 MG TAB PO (22:22)
[2017-10-15] MEDS: NIACIN SR (NIASPAN) 500 MG TAB PO (22:22)
[2017-10-15] MEDS: VANCOMYCIN HCL 1,000 MG, VIAL MATE ADAPTER 1 EACH in D5W 250 ML IV (22:25)
[2017-10-15] MEDS: CEFEPIME HCL 1 GM in D5W MINI-BAG PLUS 50 ML IV (23:50)
[2017-10-16] MEDS: VANCOMYCIN HCL 1,000 MG, VIAL MATE ADAPTER 1 EACH in D5W 250 ML IV ×3 (00:33→17:15)
[2017-10-16] MEDS: oxyCODONE 5MG TAB PO ×3 (06:09→18:14)
[2017-10-16 07:01] LABS: HEMATOCRIT 44.6 % (42.0-52.0); MEAN CORPUSCULAR HEMOGLOBIN 22.8 pg (27.0-33.0); MEAN CORPUSCULAR HGB CONC 29.1 g/dl (32.0-36.5); MEAN CORPUSCULAR VOLUME 78.2 fl (80.0-96.0); PLATELET COUNT, AUTOMATED 204 10^3/uL (150-450); RED CELL DISTRIBUTION WIDTH 17.3 % (11.5-14.5); WHITE BLOOD COUNT 11.4 10^3/uL (4.0-10.0)
[2017-10-16 07:19] LABS: ANION GAP 7 MEQ/L (8-16); BLOOD UREA NITROGEN 18 MG/DL (7-18); C REACTIVE PROTEIN QUANTITATIV 1.26 MG/DL (0.00-0.30); CALCIUM LEVEL 8.8 MG/DL (8.8-10.2); CARBON DIOXIDE LEVEL 26 MEQ/L (21-32); CHLORIDE LEVEL 107 MEQ/L (98-107); CREATININE FOR GFR 0.89 MG/DL (0.70-1.30); GLOMERULAR FILTRATION RATE > 60.0 (>49); GLUCOSE, FASTING 104 MG/DL (70-100); MAGNESIUM LEVEL 1.7 MG/DL (1.8-2.4); POTASSIUM SERUM 4.1 MEQ/L (3.5-5.1); SODIUM LEVEL 140 MEQ/L (136-145)
[2017-10-16] MEDS: HumaLOG INSULIN (NovoLOG) PER UNIT SC ×4 (07:30→22:08)
[2017-10-16] MEDS: HumuLIN N INSULIN (NovoLIN N) PER UNIT SC ×2 (07:30→17:30)
[2017-10-16] MEDS: ENOXAPARIN 40 MG/0.4 ML SYRINGE (J1650) SC (09:00)
[2017-10-16] MEDS: EUCERIN 120GM CREAM TOP ×2 (09:00→22:21)
[2017-10-16] MEDS: SENOKOT S TAB PO (09:00)
[2017-10-16] MEDS: DOCUSATE SODIUM 100 MG CAP PO (09:00)
[2017-10-16] MEDS: MULTIVITAMINS/MINERALS THERAP 1 TAB PO (09:16)
[2017-10-16] MEDS: GABAPENTIN 400 MG CAP PO ×4 (09:16→22:07)
[2017-10-16] MEDS: METOPROLOL TART 25 MG TABLET PO ×2 (09:16→22:08)
[2017-10-16] MEDS: ASPIRIN 81 MG CHEW TABLET PO ×2 (09:16→22:07)
[2017-10-16] MEDS: NICOTINE 21MG/24HR 1 EA TRANSDERMAL TD (09:18)
[2017-10-16] MEDS: CEFEPIME HCL 1 GM in D5W MINI-BAG PLUS 50 ML IV ×2 (11:38→22:09)
[2017-10-16] MEDS: NORCO, ANEXSIA 5/325MG TABLET (HYDROcodone/ACETAMINOPHEN) PO ×3 (11:40→22:14)
[2017-10-16 11:45] LABS: BEDSIDE GLUCOSE 171 MG/DL (80-115)
[2017-10-16 11:45] LABS: BEDSIDE GLUCOSE 136 MG/DL (80-115)
[2017-10-16 15:43] LABS: VANCOMYCIN LEVEL TROUGH 12.7 UG/ML (10.0-20.0)
[2017-10-16] MEDS: NIACIN SR (NIASPAN) 500 MG TAB PO (22:07)
[2017-10-16] MEDS: SIMVASTATIN 20 MG TAB PO (22:07)
[2017-10-16] MEDS: MAGNESIUM OXIDE 400 MG TAB (MAG-OX) PO (22:07)
[2017-10-16] MEDS: LATANOPROST 0.005% OPHTH SOLN 2.5 ML OU (22:08)
[2017-10-17] MEDS: VANCOMYCIN HCL 1,000 MG, VIAL MATE ADAPTER 1 EACH in D5W 250 ML IV ×4 (00:25→23:19)
[2017-10-17] MEDS: oxyCODONE 5MG TAB PO ×4 (00:30→18:53)
[2017-10-17] MEDS: NORCO, ANEXSIA 5/325MG TABLET (HYDROcodone/ACETAMINOPHEN) PO ×2 (05:26→22:28)
[2017-10-17 07:18] LABS: HEMATOCRIT 42.8 % (42.0-52.0); HEMOGLOBIN 12.9 g/dl (13.5-17.5); MEAN CORPUSCULAR HEMOGLOBIN 23.3 pg (27.0-33.0); MEAN CORPUSCULAR HGB CONC 30.1 g/dl (32.0-36.5); MEAN CORPUSCULAR VOLUME 77.4 fl (80.0-96.0); PLATELET COUNT, AUTOMATED 167 10^3/uL (150-450); RED BLOOD COUNT 5.53 10^6/uL (4.30-6.10); RED CELL DISTRIBUTION WIDTH 17.6 % (11.5-14.5)
[2017-10-17 07:33] LABS: ANION GAP 5 MEQ/L (8-16); BLOOD UREA NITROGEN 27 MG/DL (7-18); C REACTIVE PROTEIN QUANTITATIV 1.89 MG/DL (0.00-0.30); CALCIUM LEVEL 8.3 MG/DL (8.8-10.2); CARBON DIOXIDE LEVEL 26 MEQ/L (21-32); CHLORIDE LEVEL 106 MEQ/L (98-107); CREATININE FOR GFR 0.91 MG/DL (0.70-1.30); GLOMERULAR FILTRATION RATE > 60.0 (>49); GLUCOSE, FASTING 242 MG/DL (70-100); MAGNESIUM LEVEL 1.9 MG/DL (1.8-2.4); POTASSIUM SERUM 4.4 MEQ/L (3.5-5.1); SODIUM LEVEL 137 MEQ/L (136-145)
[2017-10-17] MEDS: HumaLOG INSULIN (NovoLOG) PER UNIT SC ×4 (08:13→21:00)
[2017-10-17] MEDS: ASPIRIN 81 MG CHEW TABLET PO ×2 (08:14→22:35)
[2017-10-17] MEDS: MULTIVITAMINS/MINERALS THERAP 1 TAB PO (08:14)
[2017-10-17] MEDS: ENOXAPARIN 40 MG/0.4 ML SYRINGE (J1650) SC (08:14)
[2017-10-17] MEDS: METOPROLOL TART 25 MG TABLET PO ×2 (08:15→22:31)
[2017-10-17] MEDS: GABAPENTIN 400 MG CAP PO ×4 (08:16→22:30)
[2017-10-17] MEDS: MAGNESIUM OXIDE 400 MG TAB (MAG-OX) PO ×2 (08:16→22:31)
[2017-10-17] MEDS: NICOTINE 21MG/24HR 1 EA TRANSDERMAL TD ×2 (08:17→08:22)
[2017-10-17] MEDS: EUCERIN 120GM CREAM TOP ×2 (08:18→22:31)
[2017-10-17] MEDS: HumuLIN N INSULIN (NovoLIN N) PER UNIT SC ×2 (08:20→19:45)
[2017-10-17] MEDS: CEFEPIME HCL 1 GM in D5W MINI-BAG PLUS 50 ML IV ×2 (11:32→22:32)
[2017-10-17] MEDS ORDERED: MIDAZOLAM INJ 2 MG/2 ML VIAL (J2250) As Ordered ×2 (14:37→15:44)
[2017-10-17] MEDS ORDERED: fentaNYL 100 MCG/2 ML INJECTION (J3010) As Ordered ×2 (14:37→15:44)
[2017-10-17] MEDS ORDERED: HEPARIN 1,000 UNITS/ML 10ML VIAL (FOR RADIOLOGY& DIALYSIS ONLY) As Ordered (14:38)
[2017-10-17] MEDS ORDERED: ISOVUE-300 61% 50ML VIAL (Q9967) As Ordered (14:38)
[2017-10-17 16:53] LABS: BEDSIDE GLUCOSE 232 MG/DL (80-115)
[2017-10-17 16:53] LABS: BEDSIDE GLUCOSE 213 MG/DL (80-115)
[2017-10-17 16:53] LABS: BEDSIDE GLUCOSE 185 MG/DL (80-115)
[2017-10-17 21:09] LABS: BEDSIDE GLUCOSE 95 MG/DL (80-115)
[2017-10-17 21:09] LABS: BEDSIDE GLUCOSE 146 MG/DL (80-115)
[2017-10-17] MEDS: NIACIN SR (NIASPAN) 500 MG TAB PO (22:30)
[2017-10-17] MEDS: fentaNYL 100 MCG/HR PATCH TD (22:30)
[2017-10-17] MEDS: SIMVASTATIN 20 MG TAB PO (22:30)
[2017-10-17] MEDS: LATANOPROST 0.005% OPHTH SOLN 2.5 ML OU (22:31)
[2017-10-18] MEDS: oxyCODONE 5MG TAB PO ×4 (00:48→20:14)
[2017-10-18 07:05] LABS: HEMATOCRIT 42.2 % (42.0-52.0); HEMOGLOBIN 12.4 g/dl (13.5-17.5); MEAN CORPUSCULAR HEMOGLOBIN 22.8 pg (27.0-33.0); MEAN CORPUSCULAR HGB CONC 29.4 g/dl (32.0-36.5); MEAN CORPUSCULAR VOLUME 77.7 fl (80.0-96.0); PLATELET COUNT, AUTOMATED 160 10^3/uL (150-450); RED BLOOD COUNT 5.43 10^6/uL (4.30-6.10); RED CELL DISTRIBUTION WIDTH 17.4 % (11.5-14.5); WHITE BLOOD COUNT 6.4 10^3/uL (4.0-10.0)
[2017-10-18 07:18] LABS: VANCOMYCIN LEVEL TROUGH 17.1 UG/ML (10.0-20.0)
[2017-10-18 07:25] LABS: ANION GAP 4 MEQ/L (8-16); BLOOD UREA NITROGEN 19 MG/DL (7-18); C REACTIVE PROTEIN QUANTITATIV 3.13 MG/DL (0.00-0.30); CALCIUM LEVEL 8.4 MG/DL (8.8-10.2); CARBON DIOXIDE LEVEL 31 MEQ/L (21-32); CHLORIDE LEVEL 105 MEQ/L (98-107); CREATININE FOR GFR 0.87 MG/DL (0.70-1.30); GLOMERULAR FILTRATION RATE > 60.0 (>49); GLUCOSE, FASTING 195 MG/DL (70-100); MAGNESIUM LEVEL 2.1 MG/DL (1.8-2.4); POTASSIUM SERUM 4.5 MEQ/L (3.5-5.1); SODIUM LEVEL 140 MEQ/L (136-145)
[2017-10-18] MEDS: VANCOMYCIN HCL 1,000 MG, VIAL MATE ADAPTER 1 EACH in D5W 250 ML IV ×2 (08:14→17:33)
[2017-10-18] MEDS: HumuLIN N INSULIN (NovoLIN N) PER UNIT SC ×2 (08:15→17:34)
[2017-10-18] MEDS: NICOTINE 21MG/24HR 1 EA TRANSDERMAL TD (08:15)
[2017-10-18] MEDS: GABAPENTIN 400 MG CAP PO ×4 (08:16→20:11)
[2017-10-18] MEDS: HumaLOG INSULIN (NovoLOG) PER UNIT SC ×4 (08:16→20:12)
[2017-10-18] MEDS: MULTIVITAMINS/MINERALS THERAP 1 TAB PO (08:16)
[2017-10-18] MEDS: MAGNESIUM OXIDE 400 MG TAB (MAG-OX) PO ×2 (08:17→20:11)
[2017-10-18] MEDS: ASPIRIN 81 MG CHEW TABLET PO ×2 (08:17→20:11)
[2017-10-18] MEDS: METOPROLOL TART 25 MG TABLET PO ×2 (08:18→20:12)
[2017-10-18] MEDS: ENOXAPARIN 40 MG/0.4 ML SYRINGE (J1650) SC (08:18)
[2017-10-18] MEDS: EUCERIN 120GM CREAM TOP ×2 (08:19→20:14)
[2017-10-18] MEDS: CEFEPIME HCL 1 GM in D5W MINI-BAG PLUS 50 ML IV ×2 (10:41→23:20)
[2017-10-18 17:22] LABS: BEDSIDE GLUCOSE 277 MG/DL (80-115)
[2017-10-18] MEDS: NORCO, ANEXSIA 5/325MG TABLET (HYDROcodone/ACETAMINOPHEN) PO (18:02)
[2017-10-18] MEDS: SIMVASTATIN 20 MG TAB PO (20:11)
[2017-10-18] MEDS: NIACIN SR (NIASPAN) 500 MG TAB PO (20:11)
[2017-10-18] MEDS: LATANOPROST 0.005% OPHTH SOLN 2.5 ML OU (20:13)
[2017-10-18 21:05] LABS: BEDSIDE GLUCOSE 262 MG/DL (80-115)
[2017-10-19] MEDS: VANCOMYCIN HCL 1,000 MG, VIAL MATE ADAPTER 1 EACH in D5W 250 ML IV ×2 (00:12→08:51)
[2017-10-19] MEDS: NORCO, ANEXSIA 5/325MG TABLET (HYDROcodone/ACETAMINOPHEN) PO ×2 (01:25→08:26)
[2017-10-19] MEDS: oxyCODONE 5MG TAB PO ×2 (05:18→12:30)
[2017-10-19 07:10] LABS: HEMATOCRIT 44.3 % (42.0-52.0); HEMOGLOBIN 12.8 g/dl (13.5-17.5); MEAN CORPUSCULAR HEMOGLOBIN 22.8 pg (27.0-33.0); MEAN CORPUSCULAR HGB CONC 28.9 g/dl (32.0-36.5); PLATELET COUNT, AUTOMATED 165 10^3/uL (150-450); RED BLOOD COUNT 5.61 10^6/uL (4.30-6.10); RED CELL DISTRIBUTION WIDTH 17.6 % (11.5-14.5); WHITE BLOOD COUNT 7.3 10^3/uL (4.0-10.0)
[2017-10-19 07:29] LABS: ANION GAP 5 MEQ/L (8-16); BLOOD UREA NITROGEN 19 MG/DL (7-18); C REACTIVE PROTEIN QUANTITATIV 2.03 MG/DL (0.00-0.30); CALCIUM LEVEL 8.4 MG/DL (8.8-10.2); CARBON DIOXIDE LEVEL 27 MEQ/L (21-32); CHLORIDE LEVEL 105 MEQ/L (98-107); GLOMERULAR FILTRATION RATE > 60.0 (>49); GLUCOSE, FASTING 126 MG/DL (70-100); MAGNESIUM LEVEL 2.1 MG/DL (1.8-2.4); POTASSIUM SERUM 4.1 MEQ/L (3.5-5.1); SODIUM LEVEL 137 MEQ/L (136-145)
[2017-10-19] MEDS: HumuLIN N INSULIN (NovoLIN N) PER UNIT SC (08:25)
[2017-10-19] MEDS: HumaLOG INSULIN (NovoLOG) PER UNIT SC ×2 (08:25→13:16)
[2017-10-19] MEDS: ENOXAPARIN 40 MG/0.4 ML SYRINGE (J1650) SC (09:36)
[2017-10-19] MEDS: ASPIRIN 81 MG CHEW TABLET PO (09:37)
[2017-10-19] MEDS: MAGNESIUM OXIDE 400 MG TAB (MAG-OX) PO (09:38)
[2017-10-19] MEDS: METOPROLOL TART 25 MG TABLET PO (09:39)
[2017-10-19] MEDS: GABAPENTIN 400 MG CAP PO ×2 (09:39→12:29)
[2017-10-19] MEDS: MULTIVITAMINS/MINERALS THERAP 1 TAB PO (09:39)
[2017-10-19] MEDS: NICOTINE 21MG/24HR 1 EA TRANSDERMAL TD (09:40)
[2017-10-19] MEDS: EUCERIN 120GM CREAM TOP (09:41)
[2017-10-19 10:50] LABS: BEDSIDE GLUCOSE 357 MG/DL (80-115)
[2017-10-19 10:50] LABS: BEDSIDE GLUCOSE 342 MG/DL (80-115)
[2017-10-19] MEDS: CEFEPIME HCL 1 GM in D5W MINI-BAG PLUS 50 ML IV (11:04)
[2017-10-19 11:59] LABS: BEDSIDE GLUCOSE 251 MG/DL (80-115)
== END 2017-10-19 17:00 | disposition home health service (06) | DRG 854 ==
LOC: M MS5PR 22:10
PROC: 047N3ZZ Dilation of Left Popliteal Artery, Percutaneous Approach (ICD-10-PCS; principal; 2017-10-17)
PROC: 047L3ZZ Dilation of Left Femoral Artery, Percutaneous Approach (ICD-10-PCS; 2017-10-17)
PROC: 047J3ZZ Dilation of Left External Iliac Artery, Percutaneous Approach (ICD-10-PCS; 2017-10-17)
PROC: B41DYZZ Fluoroscopy of Aorta and Bilateral Lower Extremity Arteries using Other Contrast (ICD-10-PCS; 2017-10-17)
DX: A41.9 Sepsis, unspecified organism (principal); L03.116 Cellulitis of left lower limb; L97.929 Non-pressure chronic ulcer of unspecified part of left lower leg with unspecified severity; E11.51 Type 2 diabetes mellitus with diabetic peripheral angiopathy without gangrene; I70.249 Atherosclerosis of native arteries of left leg with ulceration of unspecified site; I87.2 Venous insufficiency (chronic) (peripheral); Z79.899 Other long term (current) drug therapy; Z79.4 Long term (current) use of insulin; Z79.82 Long term (current) use of aspirin; E78.5 Hyperlipidemia, unspecified; D64.9 Anemia, unspecified; I10 Essential (primary) hypertension; I25.10 Atherosclerotic heart disease of native coronary artery without angina pectoris; M19.90 Unspecified osteoarthritis, unspecified site; G89.29 Other chronic pain; F17.210 Nicotine dependence, cigarettes, uncomplicated; E83.41 Hypermagnesemia

== ENCOUNTER → 2017-11-29 | Outpatient (CLI) | payer MEDICARE | LOC: M PAIN 14:15 | DX: E11.42 Type 2 diabetes mellitus with diabetic polyneuropathy (principal); M15.9 Polyosteoarthritis, unspecified; E11.622 Type 2 diabetes mellitus with other skin ulcer; L97.222 Non-pressure chronic ulcer of left calf with fat layer exposed; E11.621 Type 2 diabetes mellitus with foot ulcer; I10 Essential (primary) hypertension; F17.210 Nicotine dependence, cigarettes, uncomplicated; G47.30 Sleep apnea, unspecified; Z79.4 Long term (current) use of insulin; Z79.82 Long term (current) use of aspirin; Z79.891 Long term (current) use of opiate analgesic; Z79.899 Other long term (current) drug therapy; Z95.5 Presence of coronary angioplasty implant and graft; Z89.412 Acquired absence of left great toe | CPT/HCPCS: G0463 ==

== ENCOUNTER → 2018-01-29 | Outpatient (CLI) | payer MEDICARE | LOC: M PAIN 13:30 | DX: E11.42 Type 2 diabetes mellitus with diabetic polyneuropathy (principal); M25.552 Pain in left hip; M15.9 Polyosteoarthritis, unspecified; E11.65 Type 2 diabetes mellitus with hyperglycemia; I10 Essential (primary) hypertension; E78.00 Pure hypercholesterolemia, unspecified; H40.9 Unspecified glaucoma; I25.10 Atherosclerotic heart disease of native coronary artery without angina pectoris; E29.1 Testicular hypofunction; M14.672 Charcot's joint, left ankle and foot; F17.210 Nicotine dependence, cigarettes, uncomplicated; G47.00 Insomnia, unspecified; Z79.891 Long term (current) use of opiate analgesic; Z85.828 Personal history of other malignant neoplasm of skin; Z85.820 Personal history of malignant melanoma of skin; Z89.412 Acquired absence of left great toe; Z95.5 Presence of coronary angioplasty implant and graft; Z79.4 Long term (current) use of insulin; Z79.899 Other long term (current) drug therapy; Z79.82 Long term (current) use of aspirin | CPT/HCPCS: G0463 ==

== ENCOUNTER → 2018-04-12 | Outpatient (CLI) | payer MEDICARE | LOC: M PAIN 13:00 | DX: E11.42 Type 2 diabetes mellitus with diabetic polyneuropathy (principal); M15.9 Polyosteoarthritis, unspecified; M25.552 Pain in left hip; E11.65 Type 2 diabetes mellitus with hyperglycemia; I10 Essential (primary) hypertension; E78.00 Pure hypercholesterolemia, unspecified; F17.210 Nicotine dependence, cigarettes, uncomplicated; H40.9 Unspecified glaucoma; I25.10 Atherosclerotic heart disease of native coronary artery without angina pectoris; G47.30 Sleep apnea, unspecified; Z85.820 Personal history of malignant melanoma of skin; Z85.828 Personal history of other malignant neoplasm of skin; E29.1 Testicular hypofunction; Z79.891 Long term (current) use of opiate analgesic; Z95.5 Presence of coronary angioplasty implant and graft; Z79.4 Long term (current) use of insulin; Z79.899 Other long term (current) drug therapy | CPT/HCPCS: G0463 ==

== ENCOUNTER → 2018-09-11 | Outpatient (CLI) | payer MEDICARE, BC ==
[~2018-09-11] MED LIST changes: +/GLIP10TAB PO; +/LINE60TA PO; +/METO25TAB PO; +/PRAV20TA PO; +AMOX875T19 PO; +AQUAOI TOP; +ASPI1TAB PO; +ASPI81CH32 PO; +ASPI81TA7 PO; +BACT800T5 PO; -BISACODYL 10 MG SUPP PR; +CALC500C PO; +CEFD1CAP8 PO; +CEFD300CAP PO; +DOCU10ELUD PO; -DOCUSATE SODIUM 100 MG CAP PO; +DOXY100T2 PO; +FENT10PA TD; +FENT50DI21 TD; +FERR1TAB8 PO; +FISH1000 PO; +FISH1200 PO; +FISH120012 PO; +GABA-1171 PO; +GABA400C PO; +GABA600T4 PO; +GABA800T4 PO; +GLIP-162 PO; +GLIP1TAB11 PO; +HUMA100I SC; +HYDR-3713 PO; +INSUHUMDS SC; +INSULANT SC; +INSUNSD SC; +INVA1INJ IV; +KEFL500C17 PO; +LEVO500T PO; +LIDO4CRE2 TOP; +LISI10TA4 PO; +LISI5TAB PO; +LORTTAB5 PO; +LOVE1INJ SC; +METF1000 PO; +METF10004 PO; +METO25TA4 PO; +METO25TAB PO; -MOM 30ML SUSPENSION UDC PO; +NIAC1TAB5 PO; +NICO14PA TD; +NICO21DI31 TD; +NORC5TAB PO; +ONDA4VLL IM; -ONDANSETRON 4MG/2ML VIAL (J2405) IV; +OXYC10TA12 PO; +OXYC60TA8 PO; +PERCOCET PO; +PRAV1TAB39 PO; +SENO8.6T9 PO; +STOO100C PO; +TEFL600I IV; +TRAV0.00 OU; +TRAV04OPD OU; +TRIA0.022 TOP; +TRIL135C PO; +TRIL135C6 PO; +VICOBULK PO; +VITMTA PO; +ZOCO20TA PO; +[UNRECOGNIZED DRUG - CODE] PO; +niaspan PO
--- NOTE | 2018-09-24 00:37 | ECWPNPC ---
PATIENT NAME: DIANA OLIVERA : 1955 GENDER: MALE VISIT DATE: 09/11/2018 DISCHARGE DATE: 09/11/18 1502 VISIT LOCKED DATE TIME: PHYSICIAN: MILLI ZAPATA RESOURCE: MILLI ZAPATA REASON FOR APPOINTMENT 1. HIP/LEG PAIN MED/MAN SW PT KEEP LONG HISTORY OF PRESENT ILLNESS HISTORY OF PRESENT ILLNESS: HERE FOR F/U OF CHRONIC LEFT HIP AND LEG PAIN.RATING PAIN VAS 8/10.DESCRIBES PAIN CONSTANT,ACHING AND SHARP.FINDS CURRENT CHRONIC PAIN MEDICATION EFFECTIVE AT REDUCING PAIN AND KEEPING HIM FUNCTIONAL.DENIES SIDE EFFECTS. PAIN THE PATIENT DESCRIBES THE PAIN... FALL RISK SCREENING: SCREENING : NO FALLS IN THE PAST YEAR. CURRENT MEDICATIONS TAKING TRAVATAN Z 0.004 % SOLUTION 1 DROP INTO AFFECTED EYE IN THE EVENING OPHTHALMIC ONCE A DAY TAKING STOOL SOFTENER 100 MG CAPSULE 1 CAPSULE NEEDED ORALLY ONCE A DAY TAKING FISH OIL 1200 MG CAPSULE 1 CAPSULE ORALLY ONCE A DAY TAKING PRAVACHOL 20 20 MG TABLET ORAL DAILY TAKING LISINOPRIL 10 10 MG TABLET 1 TABLET ORAL DAILY TAKING METOPROLOL TARTRATE 25 MG TABLET 1 TABLET WITH FOOD ORALLY TWICE A DAY TAKING MULTIVITAMINS 1 OTC DIRECTED ORALLY DAILY TAKING AQUAPHOR STANDARD OINTMENT DIRECTED EXTERNALLY BID TAKING GLIPIZIDE XL 10 MG TABLET EXTENDED RELEASE 24 HOUR 1 TABLET ORALLY TWICE DAILY TAKING METFORMIN HCL 1000 MG TABLET 2 TABS ORALLY TWICE A DAY TAKING ASPIR-81 81 MG TABLET DELAYED RELEASE 1 TABLET ORALLY TWICE A DAY TAKING NIACOR 500 MG TABLET 2 TABLET2 AFTER MEALS ORALLY DAILY TAKING HUMULIN N 100 UNIT/ML SUSPENSION 60 UNITS SUBCUTANEOUS BID TAKING HUMULIN R 100 UNIT/ML SOLUTION 30 UNITS IN THE MORNING, 20 UNITS AT NOON, 20 UNITS IN THE EVENING SUBCUTANEOUSLY THREE TIMES DAILY TAKING DULOXETINE HCL 60 MG CAPSULE DELAYED RELEASE PARTICLES 1 CAPSULE ORALLY ONCE A DAY TAKING FENTANYL 50 MCG/HR PATCH 72 HOUR 1 PATCH TO SKIN TRANSDERMAL APPLY 1 PAYCH Q 72 HRS CHRONIC PAIN MDD=1 TAKING OXYCODONE HCL 10 MG TABLET 1 -2 TABLET ORALLY EVERY 6 HRS PRN PAIN MDD=6 TAKING GABAPENTIN 800 MG TABLET 1 TAB ORALLY FOUR TIMES DAILY NOT-TAKING NIASPAN ER 1000 MG 1 TAB ORAL DAILY NOT-TAKING LANTUS 100 UNIT/ML SOLUTION 20 UNITS SUBCUTANEOUS TWICE DAILY NOT-TAKING HUMALOG 100 UNIT/ML SOLUTION 12 UNITS SUBCUTANEOUS S/S COVERAGE NOT-TAKING TRILIPIX 135 MG CAPSULE DELAYED RELEASE 1 CAPSULE ORALLY ONCE A DAY NOT-TAKING ZONISAMIDE 25 MG CAPSULE 1 CAP ORALLY BEFORE BEDTIME MEDICATION LIST REVIEWED AND RECONCILED WITH THE PATIENT PAST MEDICAL HISTORY INSULIN-DEPENDENT DIABETES UNCONTROLLED LEFT FOOT OSTEOMYELITIS WITH GANGRENE CULTURE POSITIVE FOR MRSA AND ESCHERICHIA COLI HYPERTENSION HYPERCHOLESTEROLEMIA TOBACCO ABUSE GLAUCOMA 10/02/2012 OSTEOMYELITIS OF LEFT GREAT TOE STATUS POST AMPUTATION DISCHARGED HOME ON 10/08 WITH DOXYCYCLINE FOR 10 DAYS CORONARY ARTERY DISEASE WITH STENT PLACEMENT 2001 ST [facility] / DR RAGLAND SLEEP APNEA OSTEOARTHRITIS LOW TESTOSTERONE DEGENERATIVE HIP DISEASE STENTS PLACED DERMATITIS HLA B27 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 SURGICAL HISTORY MELANOMA LEFT EYELID 1998 RIGHT SHOULDER ROTATOR CUFF REPAIR 1998 CARDIAC CATHERTIZATION, STENT PLACEMENT 2001 C-6 CORPECTOMY AND FUSION C-5, C-6 WITH FIBULAR STRUT GRAFT AND IN ANT-CER ANTERIOR CERVICAL PLATE 2002 LEFT FOOT, DIGITS 4, 5 2010 AMPUTATION LEFT FOOT, GREAT TOE 10/02/2012 LEFT FOOT BONE DEBRIDEMENT 12/19/2012 STENTS PLACED RIGHT COMMON AND EXTERNAL ILIAC, LEFT COMMON AND EXTERNAL ILIAC 02/09/2016 FAMILY HISTORY FATHER: MOTHER: ALIVE NO KNOWN FAMILY HISTORY OF ANY UROLOGICALLY RELATED DISEASES/CANCERS. FATHER- CARDIAC DISEASE, PULMONARY DISEASE, BRAIN CA, DM. SOCIAL HISTORY GENERAL: TOBACCO USE ARE YOU A:CURRENT SMOKER ARE YOU INTERESTED IN QUITTING?NOT READY TO QUIT COUNSELED THE PATIENT ON SMOKING EFFECTS, EDUCATION [id number]/26/2019 PATIENT ENCOURAGED TO REDUCE AND/OR QUIT SMOKING DUE TO ALREADY POOR CIRCULATION TO LOWER EXTREMITIES AND WOUNDS THAT ARE IN THE PROCESS OF HEALING. HOW MANY CIGARETTES A DAY DO YOU SMOKE?6-10 HOW SOON AFTER YOU WAKE UP DO YOU SMOKE YOUR FIRST CIGARETTE?AFTER 60 MIN HOW OFTEN DO YOU SMOKE CIGARETTES?EVERY DAY PATIENT COUNSELED ON THE DANGERS OF TOBACCO USE AND URGED TO QUIT:09/11/2018 SMOKING CESSATION INFORMATION GIVEN11/29/2017 BMI CARE GOAL FOLLOW-UP ABOVE NORMAL BMI FOLLOW-UPDIETARY MANAGEMENT EDUCATION, GUIDANCE, AND COUNSELING ALCOHOL SCREENING DID YOU HAVE A DRINK CONTAINING ALCOHOL IN THE PAST YEAR?NO POINTS0 INTERPRETATIONNEGATIVE RECREATIONAL DRUG USE DENIES, DRUG USE? NO. CAFFEINE 2-5/DAY, CAFFEINE USE? NO . EVANGELICAL NO AMISH BELIEFS THAT WOULD IMPACT HEALTH CARE. LANGUAGE NAURUAN. LEARNING BARRIERS / SPECIAL NEEDS CHANGE FROM LAST VISIT?NO BARRIERS TO LEARNING?NO HEARING IMPAIRED?NO VISION IMPAIRED?YES COGNITIVELY IMPAIRED?NO :CORRECTIVE LENSES READINESS TO LEARN?YES LEARNING PREFERENCES?NO LEARNING CAPABILITIES PRESENT?YES EMOTIONAL BARRIERS?NO SPECIAL DEVICES?YES : PT USES A CANE AT ALL TIMES. NEEDS ASSISTANCE WITH HOME CARE.HAS HEARING AIDS. HAS NO TEETH. DOMESTIC VIOLENCE NONE. OCCUPATION: DISABLED. DIET: CARBOHYDRATE CONTROLLED, NO CONCENTRATED SWEETS., NO ADDED SALT. EXERCISE: NO REGULAR EXERCISE. MARITAL STATUS: . OTHERS AT HOME: SPOUSE. PAIN CLINIC PFS, CLERGY, PUBLIC HEALTH REFERRALS PFS REFERRAL NEEDED?NO CLERGY REFERRAL NEEDED?NO PUBLIC HEALTH REFERRAL NEEDED?NO WAS THE PROVIDER NOTIFIED OF ANY PERTINENT INFO?NO HAS THE PATIENT BEEN EDUCATED REGARDING HIS/HER PLAN OF CARE?YES HAS THE PATIENT BEEN EDUCATED REGARDING PAIN, THE RISK FOR PAIN, THE IMPORTANCE OF EFFECTIVE PAIN MANAGEMENT, AND THE PAIN ASSESSMENT PROCESS?YES HOUSING: OWNS HOME. ADVANCE DIRECTIVE ADVANCE DIRECTIVE DISCUSSED WITH PATIENT:YES PT HAS NO ADVANCED DIRECTIVES, GIVEN INFORMATION ABOUT IT REVIEWED WITH PT 04/12/18 1325 LAS. HOSPITALIZATION/MAJOR DIAGNOSTIC PROCEDURE PANCREATITIS 2008 LEFT FOOT INFECTION 09/30/2012 LEFT FOOT INFECTION 01/16/2013 LEFT FOOT INFECTION 02/06/13 BLOOD TRANSFUSION 02/13/13 LEFT LEG INFECTION 11/06/15 LEG SWELLING JANUARY 2016 CELLULITIS AND PAIN 04/06/16 - 04/08/16 INFECTION IN LEFT LEG DECEMBER 2016 INFECTION IN LEFT LEG 10/11/17-10/19/17 REVIEW OF SYSTEMS REVIEWED BY: PROVIDER: MILLI GUZMÁN . CONSTITUTIONAL: ANY CHANGE IN YOUR MEDICAL CONDITION? NO . CHILLS NO . FEVER NO . INFECTION: DO YOU HAVE NEW INFECTIONS? NO . DO YOU HAVE HISTORY OF MRSA? NO . MUSCULOSKELETAL: ANY NEW PATTERNS OF PAIN OR NUMBNESS? NO . GASTROENTEROLOGY: ANY NEW CHANGE IN BOWEL CONTROL? NO . GENITOURINARY: ANY NEW CHANGE IN BLADDER CONTROL? NO . IS THERE A CHANCE YOU COULD BE ? NO . HEMATOLOGY/LYMPH: DO YOU TAKE ANY BLOOD THINNERS? (FOR EXAMPLE- COUMADIN, PLAVIX, AGGRENOX, PLATEL, PRADAXA, OR XARELTO) NO . WHEN WAS YOUR LAST DOSE? DATE: TIME: . NEUROLOGY: HAVE YOU FALLEN IN THE PAST 12 MONTHS? YES . ANY NEW EXTREMITY NUMBNESS OR WEAKNESS? YES, LEFT LEG . CARDIOLOGY: DO YOU HAVE A PACEMAKER OR DEFIBRILLATOR? NO . RESPIRATORY: HAVE YOU BEEN SICK IN THE PAST WEEK? NO . FEVER NO . FLU LIKE SYMPTOMS? NO . COUGH NO . INTEGUMENTARY: DO YOU HAVE ANY RASHES OR OPEN SORES? YES . ALLERGIC/IMMUNO: ARE YOU ALLERGIC TO IV DYE? NO . ANY NEW ALLERGIES? NO . PSYCHIATRIC: DO YOU HAVE THOUGHTS OF HURTING YOURSELF OR SOMEONE ELSE? NO . ARE YOU ABUSED, NEGLECTED, OR IN AN UNSAFE ENVIRONMENT? NO . ENDOCRINOLOGY: ARE YOU DIABETIC? YES . OTHER: DO YOU NEED ANY PRESCRIPTIONS? NO . IF YES, PLEASE LIST: ____ . ANY NEW PROBLEMS WITH YOUR MEDICATIONS? NO . WHEN DID YOU LAST EAT? ____ . WHEN DID YOU LAST DRINK? ____ . WHAT DID YOU LAST DRINK? ____ . NAME OF PERSON DRIVING YOU HOME? ____ . DO YOU HAVE ANY OTHER QUESTIONS OR CONCERNS NO . VITAL SIGNS WT 254.8 LBS, HT 71 IN, BMI 35.53 INDEX, BP 220/96 MM HG, REPEAT BP 190/100 MM HG, HR 95 /MIN, RR 18 /MIN, TEMP 97.1 F, OXYGEN SAT % 93%RN IS AWARE OF PT,S BP AND WILL REDO IS BP.REPEAT B/P MANUAL. EM. EXAMINATION GENERAL EXAMINATION: GENERAL APPEARANCE:AWAKE,ALERT ,PLEAASANT . PSYCHAFFECT NORMAL . LUNGS:LUNG WALTERS ARE CLEAR TO AUSCULTATION BILATERALLY. GOOD MOVEMENT OF AIR . HEART:S1, S2 IN A REGULAR RATE AND RHYTHM. NO SIGNIFICANT MURMURS, RUBS OR GALLOPS NOTED . ASSESSMENTS OSTEOARTHRITIS INVOLVING MULTIPLE JOINTS ON BOTH SIDES OF BODY - M15.9 (PRIMARY) CHRONIC PRESCRIPTION OPIATE USE - Z79.891 TREATMENT OSTEOARTHRITIS INVOLVING MULTIPLE JOINTS ON BOTH SIDES OF BODY REFILL FENTANYL PATCH 72 HOUR, 50 MCG/HR, 1 PATCH TO SKIN, TRANSDERMAL, APPLY 1 PAYCH Q 72 HRS CHRONIC PAIN MDD=1, 30 DAY(S), 10, REFILLS 0 REFILL OXYCODONE HCL TABLET, 10 MG, 1 -2 TABLET, ORALLY, EVERY 6 HRS PRN PAIN MDD=6, 30 DAY(S), 180, REFILLS 0 CONTINUE GABAPENTIN TABLET, 800 MG, 1 TAB, ORALLY, FOUR TIMES DAILY NOTES: ISTOP REGISTRY REVIEWED AND DEMONSTRATES COMPLLIANCE. (REF #[id number] ) BRINGS IN MEDICATIONS WHICH IS APPROPRIATE FOR WHAT WAS DISPENSED. RECENT URINE TOXICOLOGY REVIEWED. NO UNAUTHORIZED MEDICATIONS. NO ILLICIT SUBSTANCES AND PRESCRIBED MEDICATIONS WERE PRESENT. URINE TOX TODAY, RISKS AND BENEFITS OF NARCOTIC/OPIOD MEDICATIONS WERE REVIEWED WITH PATIENT - THIS INCLUDES BUT IS NOT LIMITED TO RISK OF DEPENDANCE/DEVELOPMENT OF ADDICTION, MOOD DISTURBANCE AND DEPRESSION, OSTEOPOROSIS, HORMONAL AND LABIDAL CHANGES, RESPIRATORY DEPRESSION AND . PATIENT IS ADVISED NOT TO DRIVE OR DRINK ALCOHOL WHILE ON THESE MEDICATIONS. PROCEDURE CODES FA211 ESTABILISHED PATIENT [facility] CHARGE DISPOSITION & COMMUNICATION FOLLOW UP 3 MONTHS ELECTRONICALLY SIGNED BY RAMIREZ TROTTER ON 09/23/2018 AT 02:53 PM EDT DISCLAIMER : THIS IS A VISIT SUMMARY EXTRACTED FROM THE [employer] CHART. IT IS NOT A COPY OF THE [employer] PROGRESS NOTE. MEEK
== END ==
LOC: M PAIN 14:00
PROVIDERS: ATTEND Nurse Practitioner Family
DX: M15.9 Polyosteoarthritis, unspecified (principal); G89.29 Other chronic pain; E11.9 Type 2 diabetes mellitus without complications; I10 Essential (primary) hypertension; E78.00 Pure hypercholesterolemia, unspecified; G47.30 Sleep apnea, unspecified; F17.210 Nicotine dependence, cigarettes, uncomplicated; Z79.4 Long term (current) use of insulin; Z79.82 Long term (current) use of aspirin; Z79.891 Long term (current) use of opiate analgesic; Z79.899 Other long term (current) drug therapy; Z89.412 Acquired absence of left great toe

== ENCOUNTER → 2018-12-03 | Outpatient (REF) | payer MEDICARE, BC ==
[~2018-12-03] MED LIST changes: -/LINE60TA PO; -/METO25TAB PO; -/PRAV20TA PO; -ASPI1TAB PO; -ASPI81CH32 PO; +ASPI81CH33 PO; +ASPI81TA26 PO; -DOCU10ELUD PO; +DOCU5LIQ PO; +METO1TAB63 PO; +METO1TAB87 PO; -METO25TAB PO; +OXYC1TAB23 PO; -PERCOCET PO; +ZYVO100T PO
== END ==
LOC: M LAB REF 16:26
PROVIDERS: ATTEND Plastic Surgery Surgery of the Hand
DX: S81.802A Unspecified open wound, left lower leg, initial encounter (principal); Y92.9 Unspecified place or not applicable

== ENCOUNTER 2019-01-04 23:55 | Inpatient (IN) | payer MEDICARE, BC ==
[~2019-01-04] VITALS: Ht 180.3 cm; Wt 115.9 kg
[2019-01-05] VITALS (25 sets, daily range): BP systolic 80–144; BP diastolic 52–85
[2019-01-05] MEDS ORDERED: GLUCAGON FOR INJ 1 MG VIAL (J1610) SC PRN (02:30)
[2019-01-05] MEDS ORDERED: GLUCOSE 4 GM CHEW TABLET PO PRN (02:30)
[2019-01-05] MEDS ORDERED: DEXTROSE 50% 50 ML SYRINGE IV PRN (02:30)
[2019-01-05 02:31] LABS: ABG BASE EXCESS -0.8 (-2.0-2.0); ABG HCO3 27.8 MEQ/L (22.0-26.0); ABG O2 SATURATION 96.5 % (95.0-99.0); ABG PARTIAL PRESSURE O2 94.1 mmHg (75.0-100.0); ABG STANDARD HCO3 23.8 MEQ/L (22.0-26.0); ABG TOTAL CO2 29.7 MEQ/L (23.0-31.0); ABG pH (ARTERIAL) 7.259 UNITS (7.350-7.450)
[2019-01-05 02:32] LABS: ABG PARTIAL PRESSURE CO2 63.5 mmHg (35.0-45.0)
[2019-01-05 02:35] LABS: HEMATOCRIT 47.5 % (42.0-52.0); MEAN CORPUSCULAR HEMOGLOBIN 26.9 pg (27.0-33.0); MEAN CORPUSCULAR HGB CONC 29.5 g/dl (32.0-36.5); MEAN CORPUSCULAR VOLUME 91.3 fl (80.0-96.0); PLATELET COUNT, AUTOMATED 146 10^3/uL (150-450); WHITE BLOOD COUNT 18.8 10^3/uL (4.0-10.0)
[2019-01-05] MEDS ORDERED: PRAV20TA2 PO (02:50)
[2019-01-05] MEDS ORDERED: INSUNSD SC ×3 (02:50→03:57)
[2019-01-05] MEDS ORDERED: METF10004 PO (02:50)
[2019-01-05] MEDS ORDERED: NIAC500T3 PO (02:50)
[2019-01-05] MEDS ORDERED: ECOT81TA5 PO (02:50)
[2019-01-05] MEDS ORDERED: XALA0.007 OU (02:50)
[2019-01-05] MEDS ORDERED: GLIP10TA18 PO (02:50)
[2019-01-05] MEDS ORDERED: OXYC10TA12 PO (02:50)
[2019-01-05] MEDS ORDERED: GABA800T4 PO (02:50)
[2019-01-05] MEDS ORDERED: METO1TAB87 PO (02:50)
[2019-01-05] MEDS ORDERED: OMEG12003 PO (02:50)
[2019-01-05] MEDS ORDERED: DULO60CA35 PO (02:50)
[2019-01-05] MEDS ORDERED: LISI10TA4 PO (02:50)
[2019-01-05] MEDS ORDERED: FENT50DI5 TD (02:50)
--- NOTE | 2019-01-05 03:26 | HPEPDOC ---
General Date of Admission Jan 05, 2019 at 01:18 Date of Service: Jan 05, 2019 Chief Complaint The patient is a 63-year-old male admitted with a reason for visit of Sepsis. Source: Patient, RN/MD, Old records Exam Limitations: No limitations Severity: Moderate History of Present Illness 63 year old male with PMH of Insulin dependent diabetes, neuropathy, Ckd, peripheral arterial and venous disease, chronic slow healing wounds in the leg , CLAUDIA does not use his CPAP presented to the [facility] ED for increased shakiness, jerking of his body so that he was having difficulty in ambulation. He was afraid he was going to fall so went to the ED. In the [facility] ED he was found to have right lower lobe pneumonia. He was hypotensive to 80/ 68, and lactic acidosis of 3.1. His potassium was elevated to 7.1 and repeat was at 7.0 He was treated for hyperkalemia there with iv insulin. EKG did not show any abnormality so was not given calcium gluconate. He also had elevated BU N/Creatinine to 30/1.8, His CBC was 20K and hb was 14.1 He also had mildly elevated troponin at 0.11 and his di dimer was also elevated. He was diagnosed with Sepsis due to pneumonia, MEHUL and hyperkalemia and transferred here. On my interview patient complained of shakiness of his whole body which has progressively increased over the past several days. Also his muscles have been j umping frequently. He was feeling weak and diaphoretic at home but did not have any fever or chills. Did not have any chest pain or cough or SOB. ABG here showed a pH of 7.25/pco2 of 65/ pO2 of 88 with 2 liters. Home Medications Scheduled Aspirin (Ecotrin) 81 Mg Tablet.dr, 81 MG PO BID, (Reported) Duloxetine HCl (Duloxetine HCl) 60 Mg Capsule.dr, 60 MG PO DAILY, (Reported) Gabapentin (Gabapentin) 800 Mg Tablet, 800 MG PO QID, (Reported) Glipizide (Glipizide ER) 10 Mg Tab.er.24, 10 MG PO DAILY, (Reported) Insulin Human NPH (Humulin N) 100 Unit/1 Ml Vial, 66 UNITS SC QAM, (Reported) Insulin Human NPH (Humulin N) 100 Unit/1 Ml Vial, 72 UNITS SC QPM, (Reported) AT DINNER Insulin Human Regular (Humulin R) 100 Unit/1 Ml Vial, 36 UNITS SC BID, (Reported) AT BREAKFAST AND LUNCH Insulin Human Regular (Humulin R) 100 Unit/1 Ml Vial, 38 UNITS SC QPM, (Reported) AT DINNER Latanoprost (Xalatan) 0.005% 2.5ML Drops, 1 DROP OU QHS, (Reported) Lisinopril (Lisinopril) 10 Mg Tablet, 5 MG PO DAILY, (Reported) Metformin HCl (Metformin HCl) 1,000 Mg Tablet, 1,000 MG PO BID, (Reported) Metoprolol Tartrate (Metoprolol Tartrate) 25 Mg Tablet, 25 MG PO BID, (Reported) Niacin (Niacor) 500 Mg Tablet, 1,000 MG PO QPM, (Reported) [place]-3/Dha/Epa/Fish Oil (Fish Oil 1,200 mg Softgel) 1 Each Capsule.dr, 1,200 MG PO DAILY, (Reported) Pravastatin Sodium (Pravastatin Sodium) 20 Mg Tablet, 20 MG PO QHS, (Reported) fentaNYL (fentaNYL) 50 Mcg Patch.td72, 50 MCG TD Q3D, (Reported) PATCH CURRENTLY ON LEFT SHOULDER BLADE. PT SAYS DUE TO CHANGE PATCH NEXT ON 01/05 Scheduled PRN Oxycodone HCl (Oxycodone HCl) 10 Mg Tablet, 10 MG PO Q6H PRN for PAIN, (Reported) Allergies Coded Allergies: No Known Drug Allergies (Verified Allergy, Unknown, 01/05/19) Past Medical History Medical History 1. Charcot foot 2. Insulin-dependent diabetes. 3. Chronic diabetic foot ulcer. 4. Peripheral arterial disease with numerous stents. 5. Diabetic neuropathy. 6. Hypertension. 7. Dyslipidemia. 8. Coronary arterial disease with stents. 9. Osteoarthritis of the hip. 10. Chronic anemia. 11. CLAUDIA does not use his CPAP 12. Peripheral venous insufficiency in both lower extremities, 13. left lower extremity chronic slow healing wounds. Surgical History 1. Cardiac stents 2001 2. C6 corpectomy and C5-C6 fusion with fibular strut graft and anterior cervical plate in 2002 3. Left big toe amputation 2012 4. Melanoma of left eyelid removal 1998 5. Rotator cuff surgery. 6. Bilateral common and external iliac artery angioplasty and stenting 7. Left superficial femoral artery angioplasty and stenting Family History : Father from cancer. Mother still alive Social History * Smoker: current smoker Alcohol: Denies Drugs: denies A-FIB/CHADSVASC A-FIB History Current/History of A-Fib/PAF?: No Review of Systems Constitutional: Denies: Chills, Fever, Night Sweats Eyes: Denies: Pain, Vision change ENT: Denies: Head Aches, Ear Pain, Dysphagia Skin: Reports: Lesions, Breakdown Pulmonary: Denies: Dyspnea, Cough Cardiovascular: Denies: Chest Pain, Palpitations, Orthopnea, Paroxysmal Noc. Dyspnea, Lt Headedness Gastrointestinal: Denies: Nausea, Vomiting, Abdominal Pain, Diarrhea Genitourinary: Denies: Dysuria, Frequency, Incontinence, Retention Hematologic: Denies: Bruising, Bleeding Excessively Musculoskeletal: Reports: Neck Pain, Back Pain, Joint Pain, Spasms, Other Symptoms (jerky movements and twitchings) Neurological: Reports: Weakness Physical Examination General Exam: Positive: Alert, Cooperative, Mild Distress Eye Exam: Positive: Conjunctiva & lids normal; Negative: Sclera icteric ENT Exam: Positive: Atraumatic, Mucous membr. moist/pink, Pharynx Normal Neck Exam: Negative: JVD, thyromegaly, Other Chest Exam: Positive: Normal air movement, Rales (at both the bases) Heart Exam: Positive: Rate Normal, Regular Rhythm, Normal S1, Normal S2, Murmurs (systolic ); Negative: Rubs Telemetry: Positive: No significant arrhythmia Abdomen Exam: Positive: Normal bowel sounds, Soft; Negative: Tenderness, Hepatospenomegaly Extremity Exam: Positive: Edema, Other (poor pulses, onlyby doppler) Skin Exam: Positive: Lesion (10x 7cm areaof chronic healing wound on the left leg with open area in ed center 5 cm), Other skin issue (Chronic erythema due to venous stasis , stasis dermatitis) Neuro Exam: Positive: Normal Speech, Normal Tone Vital Signs Vital Signs Date Time Temp Pulse Resp B/P (MAP) Pulse Ox O2 Delivery O2 Flow Rate FiO2 01/05/19 02:00 102 133/73 (93) 95 2.0 01/05/19 01:28 97.7 14 Assessment/Plan 63 year old male with PMH of Insulin dependent diabetes, neuropathy, Ckd, peripheral arterial and venous disease, chronic slow healing wounds in the leg , CLAUDIA does not use his CPAP presented to the [facility] ED for increased shakiness, jerking of his body so that he was having difficulty in ambulation. He was afraid he was going to fall so went to the ED. In the [place] ED he was found to have right lower lobe pneumonia. Here he was found to have acute respiratory failure with hypercarbia and hypoxia. Acute respiratory failure with hypercarbia and hypoxia due to COPD+CLAUDIA+ Chronic narcotics In view his long smoking history the Patient probably has COPD along with untreated CLAUDIA with chronic narcotic use causing the acute respiratory failure. patient is not on home oxygen At [facility] was 88% in room air ABG here shows hypercarbia. Which does not seem to be chronic as the bicab in the basic from prior admissions is not elevated. Non invasive ventilation, BIPAP Sepsis Hypotension at [place] with lacticidosis could be from pneumonia or chronic leg wounds zosyn and vanco IVF. Lactacidosis due to sepsis or due to metformin in the presence of MEHUL. will hold Metformin. Continue IVF. Pneumonia right lower lobe possibly HCAP will give zosyn and vanco MEHUL with hyperkalemia recheck labs here hold lisinopril and betablocker could be due to infection and prerenal IVF Elevated troponin could be secondary to sepsis will repeat cardiac markers Myoclonic jerks ABG shows hypercarbia could be due to this. will start on BIPAP support Diabetes with neuropathy, insulin dependent continue lispro and NPH and glipizide will hold metformin cotninue gabapentin, fentanyl patch, oxycodone Peripheral arterial and venous disease continue home meds asa CAD s/p stents continue home meds. asa, statin hold metoprolol BILATERAL LOWER EXTREMITY WOUNDS biggest on the left leg due to peripheral vascular disease. seen by Dr maher on 12/14 felt to be improving. has consulted plastic surgeon regarding graft. continue wound care as per outpateint prescription. OSTEOARTHRITIS INVOLVING MULTIPLE JOINTS ON BOTH SIDES OF BODY On chronic prescription opiates continue home meds. uses fentanyl patch, oxycodone Hypertension was hypotensive at [facility] other hospital will hold antihypertensives for now Hyperlipidemia continue home meds. ? CHF Had Diastolic dysfunction with mild will get new echo last in 2016. Plan / VTE VTE Prophylaxis Ordered?: Yes GEORGINA CHAPIN MD Jan 05, 2019 03:00
[2019-01-05] MEDS: NS 1,000 ML IV SCH ×3 (03:39→23:52)
[2019-01-05] MEDS ORDERED: INSURSD SC ×2 (03:57)
[2019-01-05 04:08] LABS: ALBUMIN 2.7 GM/DL (3.2-5.2); BILIRUBIN,TOTAL 0.4 MG/DL (0.2-1.0); CALCIUM LEVEL 7.7 MG/DL (8.8-10.2); CK-MB VALUE MASS 4.2 NG/ML (<3.6); CREATININE FOR GFR 1.78 MG/DL (0.70-1.30); GLOMERULAR FILTRATION RATE 41.3 (>49); MB/CK RELATIVE INDEX 0.72 (< OR =4); POTASSIUM SERUM 5.1 MEQ/L (3.5-5.1); TOTAL PROTEIN 6.4 GM/DL (6.4-8.2); TROPONIN I 0.68 NG/ML (< 0.10)
[2019-01-05] MEDS ORDERED: VANCOMYCIN HCL 1,000 MG, VIAL MATE ADAPTER 1 EACH in D5W 250 ML IV ONE (04:20)
[2019-01-05] MEDS: VANCOMYCIN HCL 1,000 MG, VIAL MATE ADAPTER 1 EACH in D5W 250 ML IV SCH ×2 (05:39→17:17)
[2019-01-05 05:42] LABS: ABG BASE EXCESS -1.4 (-2.0-2.0); ABG STANDARD HCO3 23.2 MEQ/L (22.0-26.0); ABG TOTAL CO2 31.4 MEQ/L (23.0-31.0)
[2019-01-05 05:44] LABS: ABG O2 SATURATION 93.8 % (95.0-99.0); ABG PARTIAL PRESSURE O2 84.2 mmHg (75.0-100.0)
[2019-01-05 05:47] LABS: ABG PARTIAL PRESSURE CO2 78.1 mmHg (35.0-45.0); ABG pH (ARTERIAL) 7.188 UNITS (7.350-7.450)
--- NOTE | 2019-01-05 06:36 | PHACANCOPD ---
PHARMACY VANCOMYCIN DOSING Pt Demographics Demographics Patient Age:63 , Weight:114.000 , Gender: male Adjusted Body Weight Date: 01/05/19, Adjusted Body Weight: 90.78 Events Past 24 Hours Events Past 24 Hours: YES: Other Vancomycin Vancomycin indication: SKIN/SOFT TISSUE INJECTION, SEPSIS Vancomycin Target Ranges: 15-20 mcg/ml Vancomycin Load Y/N: Yes Load Dose Date Time Vancomycin Load Dose: 2G IV VANCO Date: 01/05/19 Time: 0430 Vancomycin Dose Date: 01/05/19. Current Vancomycin Dose: 1000MG Q12 STARTING AT 0600 Intermittent Dosing?: No Labs Labs Laboratory Tests 01/05/19 02:24 Red Blood Count 5.20, Mean Corpuscular Volume 91.3, Mean Corpuscular Hemoglobin 26.9 L, Mean Corpuscular Hemoglobin Concent 29.5 L, Red Cell Distribution Width 18.2 H, Calcium Level 7.7 L, Aspartate Amino Transf (AST/SGOT) 22, Alanine Aminotransferase (ALT/SGPT) 26, Total Creatine Kinase 580 H, Alkaline Phosphatas e 51, Total Bilirubin 0.4, Total Protein 6.4, Albumin 2.7 L Creatinine Clearance Date:01/05/19. Creatinine Clearance: . Assessment and Plan Maintaining Current Dose?: Yes Reason for dose change: No Dose Change Pharmacist Note Pharmacist Note Date: 01/05/19. Pharmacist note: Pt being treated for skin/soft tissue infection with septic symptoms. Patient does have a history of vancomycin usage here at [facility]. However renal function has decreased since last time patient was here last October. Patient also being treated with zosyn 3.375mg IV q24h. Patient received 1 gram of Vancomycin at 0430 followed by 1 G q12h starting at 0600. Trough scheduled before 4th dose. Will continue to monior patient and adjust dose as needed. MARY KATE MOTA PHARMACY Jan 05, 2019 06:36
[2019-01-05 07:22] LABS: MAGNESIUM LEVEL 1.4 MG/DL (1.8-2.4)
[2019-01-05] MEDS: PIPERACILLIN/TAZOBACTAM SOD 3.375 GM in D5W MINI-BAG PLUS 50 ML IV SCH ×3 (07:24→21:15)
[2019-01-05] MEDS ORDERED: HumuLIN N INSULIN (NovoLIN N) PER UNIT SC SCH ×5 (07:30→18:00)
[2019-01-05] MEDS ORDERED: HumaLOG INSULIN (NovoLOG) PER UNIT SC SCH ×2 (07:30→21:00)
[2019-01-05] MEDS ORDERED: HumuLIN R (REGULAR) INSULIN (NovoLIN R) **100U/ML** PER UNIT SC SCH ×2 (08:00→18:00)
[2019-01-05] MEDS ORDERED: MAG SULF 1GM/100ML (MAG RUN) 1 GM in APPROPRIATE DILUENT 1 EA IV ONE (08:00)
--- NOTE | 2019-01-05 08:10 | REP ---
Portable chest, 06:50 a.m., single AP view with the patient sitting: Comparison is 01/16/2013. The the There is chronic interstitial coarsening compatible with chronic lung disease. There are no focal infiltrates. There are no pleural effusions. The cardiac size is mildly enlarged. Possible hiatal hernia. The letitia, mediastinum, skeletal structures are unremarkable except for a cervical spine stabilization plate, unchanged. Impression: Chronic interstitial coarsening, suggestive of chronic lung disease. Cardiomegaly. Possible hiatal hernia. Electronically Signed by Luther Fountain MD 01/05/2019 08:01 A
[2019-01-05] MEDS: HEPARIN SOD (PORCINE) 5000 UNITS/ML VIAL SC SCH ×2 (08:18→21:15)
[2019-01-05 08:23] LABS: ABG BASE EXCESS 0.5 (-2.0-2.0); ABG HCO3 30.7 MEQ/L (22.0-26.0); ABG O2 SATURATION 95.4 % (95.0-99.0); ABG PARTIAL PRESSURE O2 88.7 mmHg (75.0-100.0); ABG STANDARD HCO3 24.9 MEQ/L (22.0-26.0); ABG TOTAL CO2 33.2 MEQ/L (23.0-31.0)
[2019-01-05 08:27] LABS: ABG PARTIAL PRESSURE CO2 78.8 mmHg (35.0-45.0); ABG pH (ARTERIAL) 7.209 UNITS (7.350-7.450)
[2019-01-05] MEDS: fentaNYL 50 MCG/HR PATCH TD SCH (09:00)
[2019-01-05] MEDS ORDERED: GABAPENTIN 400 MG CAP PO SCH (09:00)
[2019-01-05] MEDS ORDERED: ASPIRIN 81 MG ENTERIC TAB PO SCH (09:00)
[2019-01-05] MEDS ORDERED: FENTANYL REMOVAL DOCUMENTATION MISC XX SCH (09:00)
[2019-01-05] MEDS ORDERED: oxyCODONE 5MG TAB PO PRN (09:15)
[2019-01-05] MEDS: glipiZIDE XL 5 MG TABCR PO SCH (09:44)
[2019-01-05] MEDS: LISINOPRIL 5 MG TAB PO SCH (09:45)
[2019-01-05] MEDS: ASPIRIN 81 MG ENTERIC TAB PO SCH ×2 (09:45→21:16)
[2019-01-05] MEDS: METOPROLOL TART 25 MG TABLET PO SCH ×2 (09:45→21:00)
[2019-01-05] MEDS: GABAPENTIN 400 MG CAP PO SCH ×4 (09:45→21:17)
[2019-01-05 09:56] LABS: CK-MB VALUE MASS 4.4 NG/ML (<3.6); FREE T3 1.5 PG/ML (2.2-4.0); FREE T4 1.01 NG/DL (0.76-1.46); MB/CK RELATIVE INDEX 0.83 (< OR =4); THYROID STIMULATING HORMONE 0.277 uIU/ML (0.358-3.740); TROPONIN I 0.49 NG/ML (< 0.10)
[2019-01-05 12:07] LABS: ABG BASE EXCESS -0.5 (-2.0-2.0); ABG HCO3 27.9 MEQ/L (22.0-26.0); ABG O2 SATURATION 96.1 % (95.0-99.0); ABG PARTIAL PRESSURE O2 87.8 mmHg (75.0-100.0); ABG STANDARD HCO3 24.1 MEQ/L (22.0-26.0); ABG TOTAL CO2 29.8 MEQ/L (23.0-31.0); ABG pH (ARTERIAL) 7.265 UNITS (7.350-7.450)
[2019-01-05 12:09] LABS: ABG PARTIAL PRESSURE CO2 62.8 mmHg (35.0-45.0)
[2019-01-05] MEDS: HumaLOG INSULIN (NovoLOG) PER UNIT SC SCH ×2 (12:40→17:18)
[2019-01-05] MEDS: IPRATROPIUM 0.5MG/ALBUTEROL 2.5MG INH SOL UD 3ML (DUONEB)(J7620) NEB SCH ×2 (14:24→20:23)
[2019-01-05] MEDS ORDERED: NS 1,000 ML IV ONE (18:00)
[2019-01-05 20:47] LABS: ABG BASE EXCESS 1.3 (-2.0-2.0); ABG HCO3 27.7 MEQ/L (22.0-26.0); ABG O2 SATURATION 97.5 % (95.0-99.0); ABG PARTIAL PRESSURE CO2 51.1 mmHg (35.0-45.0); ABG PARTIAL PRESSURE O2 98.9 mmHg (75.0-100.0); ABG STANDARD HCO3 25.7 MEQ/L (22.0-26.0); ABG TOTAL CO2 29.3 MEQ/L (23.0-31.0); ABG pH (ARTERIAL) 7.352 UNITS (7.350-7.450)
[2019-01-05] MEDS ORDERED: PRAVASTATIN 20 MG TAB PO SCH (21:00)
[2019-01-05] MEDS: LATANOPROST 0.005% OPHTH SOLN 2.5 ML OU SCH (21:15)
[2019-01-05] MEDS: PRAVASTATIN 20 MG TAB PO SCH (21:16)
[2019-01-05] MEDS ORDERED: DIGOXIN INJ 0.5 MG/2 ML AMP (J1160) IV ONE (21:30)
[2019-01-06] VITALS (19 sets, daily range): BP systolic 92–169; BP diastolic 53–97; O2SAT 93
[2019-01-06] MEDS: HumaLOG INSULIN (NovoLOG) PER UNIT SC SCH ×5 (00:03→23:55)
[2019-01-06] MEDS ORDERED: DIGOXIN INJ 0.5 MG/2 ML AMP (J1160) IV ONE ×2 (01:45→05:00)
[2019-01-06] MEDS: IPRATROPIUM 0.5MG/ALBUTEROL 2.5MG INH SOL UD 3ML (DUONEB)(J7620) NEB SCH ×4 (01:49→19:58)
[2019-01-06] MEDS: PIPERACILLIN/TAZOBACTAM SOD 3.375 GM in D5W MINI-BAG PLUS 50 ML IV SCH ×4 (02:17→20:15)
[2019-01-06 04:44] LABS: BASO % 0.3 % (0.0-1.0); EOS # 0.1 10^3/uL (0.0-0.50); EOS % 0.9 % (0.0-3.0); HEMATOCRIT 41.8 % (42.0-52.0); HEMOGLOBIN 12.5 g/dl (13.5-17.5); LYMPH # 0.9 10^3/uL (1.5-4.5); LYMPH % 9.5 % (24.0-44.0); MEAN CORPUSCULAR HEMOGLOBIN 26.9 pg (27.0-33.0); MEAN CORPUSCULAR HGB CONC 29.9 g/dl (32.0-36.5); MEAN CORPUSCULAR VOLUME 90.1 fl (80.0-96.0); MONO # 0.9 10^3/uL (0.0-0.8); MONO % 9.8 % (0.0-5.0); NEUTROPHILS # 7.3 10^3/uL (1.8-7.7); NEUTROPHILS % 79.1 % (36.0-66.0); PLATELET COUNT, AUTOMATED 119 10^3/uL (150-450); RED BLOOD COUNT 4.64 10^6/uL (4.30-6.10); WHITE BLOOD COUNT 9.2 10^3/uL (4.0-10.0)
[2019-01-06 05:08] LABS: BLOOD UREA NITROGEN 31 MG/DL (7-18); CALCIUM LEVEL 7.8 MG/DL (8.8-10.2); CARBON DIOXIDE LEVEL 29 MEQ/L (21-32); CHLORIDE LEVEL 106 MEQ/L (98-107); CREATININE FOR GFR 1.12 MG/DL (0.70-1.30); GLOMERULAR FILTRATION RATE > 60.0 (>49); GLUCOSE, FASTING 119 MG/DL (70-100); POTASSIUM SERUM 4.1 MEQ/L (3.5-5.1); SODIUM LEVEL 140 MEQ/L (136-145); TROPONIN I 0.45 NG/ML (< 0.10)
[2019-01-06 05:50] LABS: ABG O2 SATURATION 98.4 % (95.0-99.0)
[2019-01-06 05:52] LABS: ABG BASE EXCESS -1.3 (-2.0-2.0); ABG HCO3 24.5 MEQ/L (22.0-26.0); ABG PARTIAL PRESSURE CO2 45.1 mmHg (35.0-45.0); ABG PARTIAL PRESSURE O2 120.8 mmHg (75.0-100.0); ABG STANDARD HCO3 23.5 MEQ/L (22.0-26.0); ABG TOTAL CO2 25.9 MEQ/L (23.0-31.0); ABG pH (ARTERIAL) 7.353 UNITS (7.350-7.450)
[2019-01-06] MEDS: VANCOMYCIN HCL 1,000 MG, VIAL MATE ADAPTER 1 EACH in D5W 250 ML IV SCH ×2 (06:08→18:07)
--- NOTE | 2019-01-06 07:13 | ECHO ---
DATE OF STUDY: 01/05/2019 REFERRING PHYSICIAN: Dr. Kandi Renee INDICATION: Cardiac murmur unspecified. HEIGHT: 180 cm WEIGHT: 114 kg 2D MEASUREMENTS: Left atrium 3.9 cm Aortic root 3.3 cm Ventricular septum 1.27 cm Posterior wall 1.32 cm Left ventricle diastole 3.3 cm Aortic annulus 2.1 cm Inferior vena cava 2.8 cm with marked reduction of respiratory variation. Suggestive of central venous pressure of at least 20 mmHg. DOPPLER MEASUREMENTS: Aortic valve velocity 251 cm/s Aortic valve VTI 47.5 cm Peak aortic valve gradient 25 mmHg Mean aortic valve gradient 14 mmHg Aortic valve velocity 110 cm/s LVOT VTI 22.2 cm Mitral E velocity 61.6 cm/s Mitral A velocity 100 cm/s Mitral deceleration time 251 ms Very mild tricuspid regurgitation. Estimated right ventricle systolic pressure at least 78 mmHg assuming a right atrial pressure of at least 20 mmHg. MITRAL ANNULAR TISSUE DOPPLER: E prime septal 5.2 cm/s E prime lateral 8.8 cm/s DESCRIPTION: Rhythm was sinus. This is a moderately technically difficult echocardiogram. No pericardial effusion. This was a 2D, M mode, color flow Doppler and pulse wave Doppler examination and included mitral annular tissue Doppler. CONCLUSIONS: 1. Suggestive of severe elevation of estimated right ventricle systolic pressure (at least 78 mmHg). Normal right ventricle size with presence of mild right ventricle hypertrophy. Normal RV systolic function. Very mild tricuspid regurgitation. Inferior vena cava plethora. Suggestive of elevated central venous pressure of at least 20 mmHg. 2. Mild concentric left ventricle hypertrophy. Normal regional LV wall motion and wall thickening. Normal LV systolic function. LVEF 70% by visual estimate. Grade 1 LV diastolic dysfunction (impaired relaxation filling pattern). 3. Extensive age degenerative calcific aortic valve disease with mild aortic stenosis. No aortic regurgitation. 4. Mild mitral annular calcification. No pericardial effusion detected. ADDITIONAL COMMENTS/RECOMMENDATIONS: Suggestive a follow-up echocardiogram Doppler in one year.
[2019-01-06] MEDS: glipiZIDE XL 5 MG TABCR PO SCH (07:46)
[2019-01-06] MEDS: fentaNYL 50 MCG/HR PATCH TD SCH (07:50)
[2019-01-06] MEDS: NS 1,000 ML IV SCH ×2 (07:52→19:35)
[2019-01-06] MEDS: ASPIRIN 81 MG ENTERIC TAB PO SCH ×2 (09:01→20:18)
[2019-01-06] MEDS: METOPROLOL TART 25 MG TABLET PO SCH ×2 (09:02→20:17)
[2019-01-06] MEDS: DIGOXIN 0.125 MG TAB PO SCH (09:02)
[2019-01-06] MEDS: GABAPENTIN 400 MG CAP PO SCH ×4 (09:02→20:17)
[2019-01-06] MEDS: LISINOPRIL 5 MG TAB PO SCH (09:03)
[2019-01-06] MEDS: HEPARIN SOD (PORCINE) 5000 UNITS/ML VIAL SC SCH ×2 (09:03→20:17)
--- NOTE | 2019-01-06 10:30 | ECGEPIP ---
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
[2019-01-06] MEDS: ONDANSETRON 4MG/2ML VIAL (J2405) IV SCH ×2 (13:25→20:15)
--- NOTE | 2019-01-06 14:54 | IPNPDOC ---
Date Seen The patient was seen on 01/06/19. Progress Note SUBJECTIVE: Isai is a 63-year-old male with significant obstructive sleep apnea. He was admitted with acute on chronic hypoxic and hypercarbic respiratory failure. He has been stable on BiPAP overnight. The patient states his principal complaint was weakness and shaking of his extremities. OBJECTIVE PHYSICAL EXAMINATION: VITAL SIGNS: Please see below. GENERAL: Awake, alert, conversant HEENT: Neck is supple with no adenopathy or thyromegaly, oral mucosa is moist, dentition is moderately good, no scleral icterus or injection, no nasal congestion CARDIOVASCULAR: Occasional irregular rapid rate and rhythm, normal S1 and S2. No appreciable murmur. RESPIRATORY: Currently clear to auscultation with no wheezes, coarse breath sounds, or cough. ABDOMINAL: The abdomen is generally soft. The skin is tight, abdomen is nondistended, but he does have notable central obesity, nontender, umbilical hernia is present EXTREMITIES: Patient has large diabetic wound to the back of his left lower leg. There is no purulent drainage. We have dressed the site with Optifoam. Additionally, there is an ulcer to the lower tibial area of the left lower extremity. There is no drainage from this NEUROLOGICAL: The patient exhibits occasional tremulousness to his arms and legs, but otherwise no discrete focal neuromotor deficit. The patient is physically weak however. PSYCHOLOGICAL: Cognition, judgment and insight are only moderately intact for his age. Skin: The patient's skin is almost tight, almost "woody" to his feet, legs, left thigh and parts of his abdomen. LABORATORY DATA, IMAGING STUDIES, MICROBIOLOGY: Please see below. Echocardiogram: Echocardiogram shows ejection fraction of approximately 70% with grade 1 diastolic dysfunction. Right ventricular systolic pressure is elevated at 78 mmHg, which could suggest pulmonary hypertension.. DVT prophylaxis ordered?: SQ HEPARIN ASSESSMENT/PLAN: 1. Acute on chronic hypoxic and hypercarbic respiratory failure--this is multifactorial. Sepsis, COPD, obstructive sleep apnea and sedation from chronic narcotic use are all contributory. Patient has responded well to BiPAP and has been transitioned to O2 by nasal cannula. He will still need the BiPAP at night. By report, remarkably, the patient is not on home O2. 2. Sepsis--characterized by hypotension, tachycardia, lactic acidosis, acute kidney injury. These are resolving with empiric antibiotics and aggressive IV hydration. The patient has a right lower lobe infiltrate that could be consistent with pneumonia. We continue to monitor blood cultures. 3. Toe-fcebpqq-lmwmnuusu diabetes mellitus--with complications of neuropathy and likely vasculopathy given the wounds to his left lower extremity. He will continue with his basal bolus insulin and oral agents and we have also made sliding scale insulin available. We're withholding his metformin due to lactic acidosis. We will consult with wound care nurse for care of his diabetic ulcer wounds. 4. Myoclonic jerks--these could be attributed to his hypercarbia associated with his respiratory failure. We will have him evaluated by physical and occupational therapy services. The patient is not very mobile at baseline. Additional contributory factor is he uses significant narcotics for chronic pain--fentanyl patch and oxycodone. 5. Coronary artery disease--the patient has a history of requiring percutaneous intervention with stent placement. Of interest, patient did develop accelerated heart rate concerning for atrial fibrillation. Patient did undergo evaluation by echocardiogram. He has been loaded with digoxin and currently has controlled rate. We'll need to evaluate him further to consider whether he needs chronic anticoagulation. . DISPOSITION: VS, I&O, 24H, [facility] Vital Signs/I&O Vital Signs Date Time Temp Pulse Resp B/P (MAP) Pulse Ox O2 Delivery O2 Flow Rate FiO2 01/06/19 12:00 97.9 91 16 135/82 (99) 96 2.0 01/06/19 07:55 Nasal Cannula 01/06/19 05:00 25 I&O- Last 24 Hours up to 6 AM 01/06/19 06:00 Intake Total 3778 ml Output Total 1500 ml Balance 2278 ml Laboratory Data 24H LABS Laboratory Tests 2 01/05/19 17:04: Bedside Glucose (Misc Panel) 168H 01/05/19 20:32: Blood Gas Bicarbonate Standard 25.7, Arterial Blood pH 7.352, Arterial Blood Partial Pressure CO2 51.1H, Arterial Blood Partial Pressure O2 98.9, Arterial Blood Total CO2 29.3, Arterial Blood HCO3 27.7H, Arterial Blood Base Excess 1.3, Arterial Blood Oxygen Saturation 97.5 01/05/19 23:59: Bedside Glucose (Misc Panel) 116H 01/06/19 04:24: Immature Granulocyte % (Auto) 0.4, White Blood Count 9.2, Red Blood Count 4.64, Hemoglobin 12.5L, Hematocrit 41.8L, Mean Corpuscular Volume 90.1, Mean Corpuscular Hemoglobin 26.9L, Mean Corpuscular Hemoglobin Concent 29.9L, Red Cell Distribution Width 18.1H, Platelet Count 119L, Neutrophils (%) (Auto) 79.1H, Lymphocytes (%) (Auto) 9.5L, Monocytes (%) (Auto) 9.8H, Eosinophils (%) (Auto) 0.9, Basophils (%) (Auto) 0.3, Neutrophils # (Auto) 7.3, Lymphocytes # (Auto) 0.9L, Monocytes # (Auto) 0.9H, Eosinophils # (Auto) 0.1, Basophils # (Auto) 0.0, Nucleated Red Blood Cells % (auto) 0.0, Anion Gap 5L, Glomerular Filtration Rate > 60.0, Blood Urea Nitrogen 31H, Creatinine 1.12, Sodium Level 140, Potassium Level 4.1, Chloride Level 106, Carbon Dioxide Level 29, Calcium Level 7.8L, Troponin I 0.45H 01/06/19 05:36: Blood Gas Bicarbonate Standard 23.5, Arterial Blood pH 7.353, Arterial Blood Partial Pressure CO2 45.1H, Arterial Blood Partial Pressure O2 120.8H, Arterial Blood Total CO2 25.9, Arterial Blood HCO3 24.5, Arterial Blood Base Excess -1.3, Arterial Blood Oxygen Saturation 98.4 01/06/19 12:21: Bedside Glucose (Misc Panel) 174H CBC/BMP Laboratory Tests 01/06/19 04:24 Red Blood Count 4.64, Mean Corpuscular Volume 90.1, Mean Corpuscular Hemoglobin 26.9 L, Mean Corpuscular Hemoglobin Concent 29.9 L, Red Cell Distribution Width 18.1 H, Neutrophils (%) (Auto) 79.1 H, Lymphocytes (%) (Auto) 9.5 L, Monocytes (%) (Auto) 9.8 H, Eosinophils (%) (Auto) 0.9, Basophils (%) (Auto) 0.3, Neutrophils # (Auto) 7.3, Lymphocytes # (Auto) 0.9 L, Monocytes # (Auto) 0.9 H, Eosinophils # (Auto) 0.1, Basophils # (Auto) 0.0, Calcium Level 7.8 L BELL FISH MD Jan 06, 2019 14:54
[2019-01-06] MEDS ORDERED: PROMETHAZINE INJ 25 MG/ML VIAL (J2550) IV PRN (15:45)
[2019-01-06] MEDS ORDERED: PROMETHAZINE INJ 25 MG/ML VIAL (J2550) As Ordered ONE (16:02)
[2019-01-06] MEDS: oxyCODONE 5MG TAB PO PRN ×2 (16:30→21:31)
--- NOTE | 2019-01-06 16:42 | REP ---
Supine abdomen two views: There are no comparisons. There is gaseous distension of the stomach. There is mild gaseous distension of a few bowel loops in a nonspecific pattern. There is advanced osteoarthritis of the left hip with deformity of the left femoral head, possibly a consequence of aseptic necrosis. There are bilateral iliac artery endovascular stents. Impression: Gaseous distension of the stomach. Nonspecific bowel gas pattern. Electronically Signed by Luther Fountain MD 01/06/2019 04:34 P
[2019-01-06] MEDS ORDERED: HumaLOG INSULIN (NovoLOG) PER UNIT SC SCH ×2 (18:00→21:00)
--- NOTE | 2019-01-06 19:17 | PHACANCOPD ---
PHARMACY VANCOMYCIN DOSING Pt Demographics Demographics Patient Age:63 , Weight:82.500 , Gender: male Adjusted Body Weight Date: 01/05/19, Adjusted Body Weight: 90.78 Events Past 24 Hours Events Past 24 Hours: NO: Dialysis, Diuretic Therapy, Change in CrCl, Fever, Elevation in WBC, Pending Diagnostics, Pending Procedures, Other Vancomycin Vancomycin indication: SKIN/SOFT TISSUE INJECTION, SEPSIS Vancomycin Target Ranges: 15-20 mcg/ml Vancomycin Load Y/N: Yes Load Dose Date Time Vancomycin Load Dose: 2G IV VANCO Date: 01/05/19 Time: 0430 Vancomycin Dose Date: 01/06/19. Current Vancomycin Dose: [1G IV Q8H] Date: 01/05/19. Current Vancomycin Dose: 1000MG Q12 STARTING AT 0600 Intermittent Dosing?: No Labs Labs Item Value Date Time White Blood Count 18.8 10^3/uL H 01/05/19223 White Blood Count 9.2 10^3/uL 01/06/19 0424 Creatinine 1.78 MG/DL H 01/05/19223 Creatinine 1.12 MG/DL 01/06/194 Vancomycin Level Trough 8.7 UG/ML L 01/06/19 165 Creatinine Clearance Date:01/05/19. Creatinine Clearance: [71.9ML/MIN]. Pending Labs VANCO TROUGH 01/07/19 @17:00 Assessment and Plan Maintaining Current Dose?: No Reason for dose change: Trough too low Pharmacist Note Pharmacist Note Date: 01/06/19. Pharmacist note: PT trough came back today @ 8.7mcg/ml. The patients serum creatinine has also improved to 1.12mg/dl from 1.78mg/dl. To raise his trough levels dosing will be changed to 1g iv every 8 hours. A trough is scheduled for 01/07/19 @17:00. We will continue to monitor and adjust the dose as needed. Date: 01/05/19. Pharmacist note: Pt being treated for skin/soft tissue infection with septic symptoms. Patient does have a history of vancomycin usage here at [facility]. However renal function has decreased since last time patient was here last October. Patient also being treated with zosyn 3.375mg IV q24h. Patient received 1 gram of Vancomycin at 0430 followed by 1 G q12h starting at 0600. Trough scheduled before 4th dose. Will continue to monior patient and adjust dose as needed. SARAHY PLUMMER PHARMACY Jan 06, 2019 19:17
[2019-01-06] MEDS: LATANOPROST 0.005% OPHTH SOLN 2.5 ML OU SCH (20:18)
[2019-01-06] MEDS: PRAVASTATIN 20 MG TAB PO SCH (20:18)
[2019-01-07] VITALS: BP 153/68
[2019-01-07] MEDS: ONDANSETRON 4MG/2ML VIAL (J2405) IV SCH ×4 (01:22→20:42)
[2019-01-07] MEDS: PIPERACILLIN/TAZOBACTAM SOD 3.375 GM in D5W MINI-BAG PLUS 50 ML IV SCH ×4 (01:22→20:41)
[2019-01-07] MEDS: VANCOMYCIN HCL 1,000 MG, VIAL MATE ADAPTER 1 EACH in D5W 250 ML IV SCH ×3 (01:23→17:56)
[2019-01-07] MEDS: IPRATROPIUM 0.5MG/ALBUTEROL 2.5MG INH SOL UD 3ML (DUONEB)(J7620) NEB SCH ×4 (02:12→19:53)
[2019-01-07 04:00] VITALS: BP 168/82
[2019-01-07 04:53] LABS: BASO % 0.2 % (0.0-1.0); EOS # 0.1 10^3/uL (0.0-0.50); EOS % 0.8 % (0.0-3.0); HEMATOCRIT 44.5 % (42.0-52.0); HEMOGLOBIN 13.4 g/dl (13.5-17.5); LYMPH # 1.1 10^3/uL (1.5-4.5); LYMPH % 13.1 % (24.0-44.0); MEAN CORPUSCULAR HEMOGLOBIN 26.9 pg (27.0-33.0); MEAN CORPUSCULAR HGB CONC 30.1 g/dl (32.0-36.5); MEAN CORPUSCULAR VOLUME 89.4 fl (80.0-96.0); MONO % 11.8 % (0.0-5.0); NEUTROPHILS # 6.2 10^3/uL (1.8-7.7); NEUTROPHILS % 73.7 % (36.0-66.0); PLATELET COUNT, AUTOMATED 138 10^3/uL (150-450); RED BLOOD COUNT 4.98 10^6/uL (4.30-6.10); WHITE BLOOD COUNT 8.4 10^3/uL (4.0-10.0)
[2019-01-07 05:14] LABS: BLOOD UREA NITROGEN 19 MG/DL (7-18); CALCIUM LEVEL 8.1 MG/DL (8.8-10.2); CARBON DIOXIDE LEVEL 34 MEQ/L (21-32); CHLORIDE LEVEL 102 MEQ/L (98-107); CREATININE FOR GFR 0.86 MG/DL (0.70-1.30); GLOMERULAR FILTRATION RATE > 60.0 (>49); GLUCOSE, FASTING 163 MG/DL (70-100); POTASSIUM SERUM 3.7 MEQ/L (3.5-5.1); SODIUM LEVEL 141 MEQ/L (136-145)
[2019-01-07] MEDS: HumaLOG INSULIN (NovoLOG) PER UNIT SC SCH ×4 (05:18→23:37)
[2019-01-07] MEDS: NS 1,000 ML IV SCH (07:10)
[2019-01-07 07:44] VITALS: O2SAT 100
[2019-01-07 08:00] VITALS: BP 167/81
[2019-01-07] MEDS: HEPARIN SOD (PORCINE) 5000 UNITS/ML VIAL SC SCH ×2 (08:10→20:42)
[2019-01-07] MEDS: LISINOPRIL 5 MG TAB PO SCH (08:10)
[2019-01-07] MEDS: METOPROLOL TART 25 MG TABLET PO SCH ×2 (08:11→20:42)
[2019-01-07] MEDS: glipiZIDE XL 5 MG TABCR PO SCH (08:11)
[2019-01-07] MEDS: GABAPENTIN 400 MG CAP PO SCH ×4 (08:11→20:41)
[2019-01-07] MEDS: oxyCODONE 5MG TAB PO PRN ×3 (08:12→20:42)
[2019-01-07] MEDS: DIGOXIN 0.125 MG TAB PO SCH (08:12)
[2019-01-07] MEDS: ASPIRIN 81 MG ENTERIC TAB PO SCH ×2 (08:12→20:42)
[2019-01-07 11:49] VITALS: BP 172/82
--- NOTE | 2019-01-07 14:36 | IPNPDOC ---
Date Seen The patient was seen on 01/07/19. Progress Note SUBJECTIVE: This is a 63-year-old male who is admitted with acute on chronic hypercarbic and hypoxic respiratory failure. He responded to treatment with BiPAP. He was weaned to O2 by nasal cannula. Events of overnight are that he then developed projectile vomiting. He was unresponsive to Zofran or Phenergan. Abdominal film was obtained which showed gastric gas and diffuse distribution of gas and stool throughout the rest of the bowel without sign of obstruction. NG tube was placed for overnight with removal of approximately 1100 mL of bilious material. This morning he is feeling much better. NG is clamped to allow him to start with clear liquids. OBJECTIVE PHYSICAL EXAMINATION: VITAL SIGNS: Please see below. GENERAL: Awake, alert, conversant HEENT: Neck is supple with no adenopathy or thyromegaly, oral mucosa is moist, dentition is moderately good, no scleral icterus or injection, no nasal congestion CARDIOVASCULAR: Occasional irregular rapid rate and rhythm, normal S1 and S2. No appreciable murmur. RESPIRATORY: Currently clear to auscultation with no wheezes, coarse breath trace nds, or cough, BiPAP mask is off ABDOMINAL: The abdomen is generally soft. The skin is tight, abdomen is nondistended, but he does have notable central obesity, nontender, umbilical hernia is present EXTREMITIES: Patient has large diabetic wound to the back of his left lower leg. There is no purulent drainage. We have dressed the site with Optifoam. Additionally, there is an ulcer to the lower tibial area of the left lower extremity. There is no drainage from this NEUROLOGICAL: The patient exhibits occasional tremulousness to his arms and legs, but otherwise no discrete focal neuromotor deficit. The patient is physically weak however. PSYCHOLOGICAL: Cognition, judgment and insight are only moderately intact for his age, he is not always fully cooperative Skin: The patient's skin is tight, almost "woody" to his feet, legs, left thigh and parts of his abdomen. Patient appears to have candidal dermatitis rash around his neck. LABORATORY DATA, IMAGING STUDIES, MICROBIOLOGY: Please see below. Impression: Gaseous distension of the stomach. Nonspecific bowel gas pattern. Electronically Signed by Luther Fountain MD 01/06/2019 04:34 P Echocardiogram: Echocardiogram shows ejection fraction of approximately 70% with grade 1 diastolic dysfunction. Right ventricular systolic pressure is elevated at 78 mmHg, which could suggest pulmonary hypertension. DVT prophylaxis ordered?: [Heparin] ASSESSMENT/PLAN: 1. Acute on chronic hypoxic and hypercarbic respiratory failure--this is multifactorial. Sepsis, COPD, obstructive sleep apnea and sedation from chronic narcotic use are all contributory. Patient has responded well to BiPAP and has been transitioned to O2 by nasal cannula. He will still need the BiPAP at night. By report, remarkably, the patient is not on home O2. 2. Sepsis--characterized by hypotension, tachycardia, lactic acidosis, acute kidney injury. These are resolving with empiric antibiotics and aggressive IV hydration. The patient has a right lower lobe infiltrate that could be consistent with pneumonia. We continue to monitor blood cultures. 3. 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 He will continue with his basal bolus insulin and oral agents and we have also made sliding scale insulin available. We're withholding his metformin due to lactic acidosis. We will consult with wound care nurse for care of his diabetic ulcer wounds. 4. Myoclonic jerks--these could be attributed to his hypercarbia associated with his respiratory failure. We will have him evaluated by physical and occupational therapy services. The patient is not very mobile at baseline. Additional contributory factor is he uses significant narcotics for chronic pain--fentanyl patch and oxycodone. 5. Coronary artery disease--the patient has a history of requiring percutaneous intervention with stent placement. Of interest, patient did develop accelerated heart rate concerning for atrial fibrillation. Patient did undergo evaluation by echocardiogram. He has been loaded with digoxin and currently has controlled rate. We'll need to evaluate him further to consider whether he needs chronic anticoagulation. 6. Gastritis--this is of unclear etiology. He may have developed increased gas in the stomach from his BiPAP. He is responded to intervention with an NG tube. If he tolerates clamping the NG tube will be removed. 7. Noncompliance--the patient is apparently not fully compliant with his CPAP device at home. He states he does not plan on being compliant when he is discharged from the hospital, despite the fact that this has helped him. He is also not fully compliant with his diabetes regimen. DISPOSITION: . VS, I&O, 24H, Fishbone Vital Signs/I&O Vital Signs Date Time Temp Pulse Resp B/P (MAP) Pulse Ox O2 Delivery O2 Flow Rate FiO2 01/07/19 12:00 1.0 01/07/19 11:49 98.0 87 18 172/82 (112) 98 01/07/19 07:44 Nasal Cannula 01/07/19 04:00 25 I&O- Last 24 Hours up to 6 AM 01/07/19 06:00 Intake Total 3840 ml Output Total 3255 ml Balance 585 ml Laboratory Data 24H LABS Laboratory Tests 2 01/06/19 16:52: Vancomycin Level Trough 8.7L 01/06/19 18:05: Bedside Glucose (Misc Panel) 179H 01/06/19 23:53: Bedside Glucose (Misc Panel) 91 01/07/19 04:40: Immature Granulocyte % (Auto) 0.4, White Blood Count 8.4, Red Blood Count 4.98, Hemoglobin 13.4L, Hematocrit 44.5, Mean Corpuscular Volume 89.4, Mean Corpuscular Hemoglobin 26.9L, Mean Corpuscular Hemoglobin Concent 30.1L, Red Cell Distribution Width 17.3H, Platelet Count 138L, Neutrophils (%) (Auto) 73.7H, Lymphocytes (%) (Auto) 13.1L, Monocytes (%) (Auto) 11.8H, Eosinophils (%) (Auto) 0.8, Basophils (%) (Auto) 0.2, Neutrophils # (Auto) 6.2, Lymphocytes # (Auto) 1.1L, Monocytes # (Auto) 1.0H, Eosinophils # (Auto) 0.1, Basophils # (Auto) 0.0, Nucleated Red Blood Cells % (auto) 0.0, Anion Gap 5L, Glomerular Filtration Rate > 60.0, Blood Urea Nitrogen 19H, Creatinine 0.86, Sodium Level 141, Potassium Level 3.7, Chloride Level 102, Carbon Dioxide Level 34H, Calcium Level 8.1L 01/07/19 11:46: Bedside Glucose (Misc Panel) 204H CBC/BMP Laboratory Tests 01/07/19 04:40 Red Blood Count 4.98, Mean Corpuscular Volume 89.4, Mean Corpuscular Hemoglobin 26.9 L, Mean Corpuscular Hemoglobin Concent 30.1 L, Red Cell Distribution Width 17.3 H, Neutrophils (%) (Auto) 73.7 H, Lymphocytes (%) (Auto) 13.1 L, Monocytes (%) (Auto) 11.8 H, Eosinophils (%) (Auto) 0.8, Basophils (%) (Auto) 0.2, Neut rophils # (Auto) 6.2, Lymphocytes # (Auto) 1.1 L, Monocytes # (Auto) 1.0 H, Eosinophils # (Auto) 0.1, Basophils # (Auto) 0.0, Calcium Level 8.1 L BELL FISH MD Jan 07, 2019 14:36
[2019-01-07 16:00] VITALS: BP 183/85
--- NOTE | 2019-01-07 18:38 | PHACANCOPD ---
PHARMACY VANCOMYCIN DOSING Pt Demographics Demographics Patient Age:63 , Weight:115.600 , Gender: male Adjusted Body Weight Date: 01/05/19, Adjusted Body Weight: 90.78 Vancomycin Vancomycin indication: SKIN/SOFT TISSUE INJECTION, SEPSIS Vancomycin Target Ranges: 15-20 mcg/ml Vancomycin Load Y/N: Yes Load Dose Date Time Vancomycin Load Dose: 2G IV VANCO Date: 01/05/19 Time: 0430 Vancomycin Dose Date: 01/06/19. Current Vancomycin Dose: [1G IV Q8H] Date: 01/05/19. Current Vancomycin Dose: 1000MG Q12 STARTING AT 0600 Intermittent Dosing?: No Labs Creatinine Clearance Date:01/05/19. Creatinine Clearance: [71.9ML/MIN]. Pending Labs VANCO TROUGH 01/07/19 @17:00 Assessment and Plan Maintaining Current Dose?: Yes Reason for dose change: No Dose Change Pharmacist Note Pharmacist Note 01/07/19: Day #3 empiric vancomycin therapy for the treatment of sepsis. Trough level today resulted at 15.3mcg/ml. Scr has improved from 1.78 at start of therapy to 0.86 today. BUN has also improved at 32 at start of therapy to 19 today. A follow-up vancomycin trough level has been scheduled to be drawn tomorrow at 1700 - to ensure close monitoring given that the patient has not yet attained steady-state on the new regimen. We will continue to monitor and adjust the dosing further if needed. Date: 01/06/19. Pharmacist note: PT trough came back today @ 8.7mcg/ml. The patients serum creatinine has also improved to 1.12mg/dl from 1.78mg/dl. To raise his trough levels dosing will be changed to 1g iv every 8 hours. A trough is scheduled for 01/07/19 @17:00. We will continue to monitor and adjust the dose as needed. Date: 01/05/19. Pharmacist note: Pt being treated for skin/soft tissue infection with septic symptoms. Patient does have a history of vancomycin usage here at [facility]. However renal function has decreased since last time patient was here last October. Patient also being treated with zosyn 3.375mg IV q24h. Patient received 1 gram of Vancomycin at 0430 followed by 1 G q12h starting at 0600. Trough scheduled before 4th dose. Will continue to monior patient and adjust dose as needed. MARYELLEN REYES PHARMACY Jan 07, 2019 18:38
[2019-01-07] MEDS: PRAVASTATIN 20 MG TAB PO SCH (20:42)
[2019-01-07] MEDS: LATANOPROST 0.005% OPHTH SOLN 2.5 ML OU SCH (20:43)
[2019-01-08] VITALS: BP 162/72
[2019-01-08] MEDS: IPRATROPIUM 0.5MG/ALBUTEROL 2.5MG INH SOL UD 3ML (DUONEB)(J7620) NEB SCH ×4 (01:06→20:06)
[2019-01-08] MEDS: ONDANSETRON 4MG/2ML VIAL (J2405) IV SCH ×3 (02:01→13:49)
[2019-01-08] MEDS: PIPERACILLIN/TAZOBACTAM SOD 3.375 GM in D5W MINI-BAG PLUS 50 ML IV SCH ×4 (02:01→20:42)
[2019-01-08] MEDS: VANCOMYCIN HCL 1,000 MG, VIAL MATE ADAPTER 1 EACH in D5W 250 ML IV SCH ×3 (02:02→17:48)
[2019-01-08 04:00] VITALS: BP 142/76
[2019-01-08 05:04] LABS: BASO % 0.5 % (0.0-1.0); EOS # 0.1 10^3/uL (0.0-0.50); EOS % 1.5 % (0.0-3.0); HEMATOCRIT 45.6 % (42.0-52.0); HEMOGLOBIN 13.7 g/dl (13.5-17.5); LYMPH # 1.2 10^3/uL (1.5-4.5); LYMPH % 17.8 % (24.0-44.0); MEAN CORPUSCULAR VOLUME 89.8 fl (80.0-96.0); MONO # 0.8 10^3/uL (0.0-0.8); MONO % 12.1 % (0.0-5.0); NEUTROPHILS # 4.4 10^3/uL (1.8-7.7); NEUTROPHILS % 67.5 % (36.0-66.0); PLATELET COUNT, AUTOMATED 144 10^3/uL (150-450); RED BLOOD COUNT 5.08 10^6/uL (4.30-6.10); WHITE BLOOD COUNT 6.5 10^3/uL (4.0-10.0)
[2019-01-08 05:24] LABS: BLOOD UREA NITROGEN 11 MG/DL (7-18); CALCIUM LEVEL 8.1 MG/DL (8.8-10.2); CARBON DIOXIDE LEVEL 34 MEQ/L (21-32); CHLORIDE LEVEL 103 MEQ/L (98-107); CREATININE FOR GFR 0.89 MG/DL (0.70-1.30); GLOMERULAR FILTRATION RATE > 60.0 (>49); GLUCOSE, FASTING 148 MG/DL (70-100); POTASSIUM SERUM 3.7 MEQ/L (3.5-5.1); SODIUM LEVEL 140 MEQ/L (136-145)
[2019-01-08] MEDS: HumaLOG INSULIN (NovoLOG) PER UNIT SC SCH ×4 (06:05→20:44)
[2019-01-08] MEDS: glipiZIDE XL 5 MG TABCR PO SCH (07:46)
[2019-01-08 08:00] VITALS: BP 162/72
[2019-01-08] MEDS: LISINOPRIL 5 MG TAB PO SCH (08:32)
[2019-01-08] MEDS: oxyCODONE 5MG TAB PO PRN ×2 (08:32→20:54)
[2019-01-08] MEDS: ASPIRIN 81 MG ENTERIC TAB PO SCH ×2 (08:32→20:42)
[2019-01-08] MEDS: METOPROLOL TART 25 MG TABLET PO SCH ×2 (08:32→20:42)
[2019-01-08] MEDS: GABAPENTIN 400 MG CAP PO SCH ×4 (08:33→20:38)
[2019-01-08] MEDS: HEPARIN SOD (PORCINE) 5000 UNITS/ML VIAL SC SCH ×2 (08:33→20:38)
[2019-01-08] MEDS: DIGOXIN 0.125 MG TAB PO SCH (08:33)
[2019-01-08] MEDS: fentaNYL 50 MCG/HR PATCH TD SCH (08:34)
--- NOTE | 2019-01-08 10:35 | IPNPDOC ---
Text Note Date of Service The patient was seen on 01/08/19. NOTE Pt was seen and examined at bedside. Pt on contact isolation for Hx of MRSA infection. Uses BiPAP at night. Day time on NC 2lit O2 sat >95%. No more episode of vomiting reported. Pt on diet tolerating well. Upon my encounter pt denies any dyspnea, chest pain or palpitations. He has not been out of bed yet due to generalized motor weakness. able to move in beds with assistance. PHYSICAL EXAMINATION: VITAL SIGNS: Please see below. GENERAL: AAOx3 HEENT: neck supple sclera not icteric no JVD CARDIOVASCULAR: S1 S2 no murmur RESPIRATORY: no wheezes no rales diminished breath sounds in bases ABDOMINAL: soft not tender not distended EXTREMITIES: chronic dermatitis changes with discoloration bilat, Lt leg wound moderate sero sanguineous discharge, not purulent NEUROLOGICAL: grossly intact PSYCHOLOGICAL: mood affect appropriate LABORATORY DATA, IMAGING STUDIES, MICROBIOLOGY: Please see below. Echocardiogram: Echocardiogram shows ejection fraction of approximately 70% with grade 1 diastolic dysfunction. Right ventricular systolic pressure is elevated at 78 mmHg, which could suggest pulmonary hypertension. ASSESSMENT/PLAN: 1. Acute on chronic hypoxic and hypercarbic respiratory failure clinically improved significantly cont BiPAP at night time PRN for hypoxia <90% , respiratory distress 2. Sepsis hemodynamically improved source is possible chronic diabetic LE wound versus pneumonia cont broad spectrum antibiotics Pending blood culture Wound culture 3. CAD s/p PCI no clinical signs/symptoms of angina cont ASA ACEI betablocker 5. Chronic lower extremity wound daily wound care cont Abx send for cultures 6. Noncompliance the patient is apparently not fully compliant with his CPAP device at home. He states he does not plan on being compliant when he is discharged from the hospital, despite the fact that this has helped him. He is also not fully compliant with his diabetes regimen. Vital Signs Date Time Temp Pulse Resp B/P (MAP) Pulse Ox O2 Delivery O2 Flow Rate FiO2 01/08/19 08:34 19 01/08/19 08:33 91 01/08/19 08:32 19 01/08/19 08:32 94 162/78 01/08/19 08:32 162/78 01/08/19 04:00 97.9 80 18 142/76 (98) 98 25.0 01/08/19 04:00 25 01/08/19 00:00 25 01/08/19 00:00 98.2 78 18 162/72 (102) 98 25.0 01/07/19 21:12 18 01/07/19 20:42 20 01/07/19 20:42 73 178/82 01/07/19 20:00 25 01/07/19 16:00 25 01/07/19 16:00 98.1 82 18 183/85 (117) 96 25.0 01/07/19 15:43 25 01/07/19 15:05 88 96 01/07/19 14:35 20 1.0 01/07/19 12:00 1.0 01/07/19 11:49 98.0 87 18 172/82 (112) 98 1.0 Intake & Output 01/08/19 06:00 Intake Total 2530 ml Output Total 5476 ml Balance -2946 ml Laboratory Tests 01/07/19 11:46: Bedside Glucose (Misc Panel) 204H 01/07/19 16:56: Vancomycin Level Trough 15.3 01/07/19 17:34: Bedside Glucose (Misc Panel) 155H 01/07/19 23:37: Bedside Glucose (Misc Panel) 166H 01/08/19 04:44: White Blood Count 6.5, Red Blood Count 5.08, Hemoglobin 13.7, Hematocrit 45.6, Mean Corpuscular Volume 89.8, Mean Corpuscular Hemoglobin 27.0, Mean Corpuscular Hemoglobin Concent 30.0L, Red Cell Distribution Width 16.8H, Platelet Count 144L, Neutrophils (%) (Auto) 67.5H, Lymphocytes (%) (Auto) 17.8L, Monocytes (%) (Auto) 12.1H, Eosinophils (%) (Auto) 1.5, Basophils (%) (Auto) 0.5, Neutrophils # (Auto) 4.4, Lymphocytes # (Auto) 1.2L, Monocytes # (Auto) 0.8, Eosinophils # (Auto) 0.1, Basophils # (Auto) 0.0, Immature Granulocyte % (Auto) 0.6, Nucleated Red Blood Cells % (auto) 0.0, Blood Urea Nitrogen 11, Creatinine 0.89, Sodium Level 140, Potassium Level 3.7, Chloride Level 103, Carbon Dioxide Level 34H, Calcium Level 8.1L, Anion Gap 3L, Glomerular Filtration Rate > 60.0, Fasting Glucose 148H 01/08/19 05:52: Bedside Glucose (Misc Panel) 147H 01/08/19 07:24: Bedside Glucose (Misc Panel) 134H Current Medications Medications (Trade) Dose Ordered Sig/Lexi Route PRN Reason Start Time Stop Time Status Last Admin Dose Admin Albuterol/ Ipratropium (Duoneb (Ipr 0.5mg/Alb 2.5mg)) 3 ml RQ6H NEB 01/05/19 14:00 01/08/19 07:50 3 ML Aspirin (Ecotrin) 81 mg BID PO 01/05/19 09:00 01/08/19 08:32 81 MG Digoxin (Lanoxin) 0.125 mg DAILY PO 01/06/19 09:00 01/08/19 08:33 0.125 MG Fentanyl (Duragesic) 50 mcg Q3D TD 01/05/19 09:00 01/08/19 08:34 50 MCG Gabapentin (Neurontin) 800 mg QID PO 01/05/19 09:00 01/08/19 08:33 800 MG Glipizide (Glucotrol Xl) 10 mg DAILY@0730 PO 01/05/19 07:30 01/08/19 07:46 10 MG Heparin Sodium (Porcine) (Heparin) 5,000 units Q12H SC 01/05/19 09:00 01/08/19 08:33 5,000 UNITS Latanoprost (Xalatan 0.005% Op Soln) 1 drop QHS OU 01/05/19 21:00 01/07/19 20:43 1 DROP Lisinopril (Prinivil) 5 mg DAILY PO 01/05/19 09:00 01/08/19 08:32 5 MG Metoprolol Tartrate (Lopressor) 25 mg BID PO 01/05/19 09:00 01/08/19 08:32 25 MG Ondansetron HCl (ZOFRAN INJection) 4 mg Q6H IV 01/06/19 14:00 01/08/19 07:48 4 MG Oxycodone HCl (Roxicodone, Oxyir) 5 mg Q6H PRN PO PAIN 01/06/19 09:15 01/08/19 08:32 5 MG Piperacillin Sod/ Tazobactam Sod 3.375 gm/Dextrose 50 ml @ 50 mls/hr Q6H IV 01/05/19 08:00 01/08/19 07:45 50 MLS/HR Pravastatin Sodium (Pravachol) 20 mg QHS PO 01/05/19 21:00 01/07/19 20:42 20 MG Promethazine HCl (PHENERGAN INJection) 12.5 mg Q6HP PRN IV NAUSEA 01/06/19 15:45 01/06/19 16:04 12.5 MG Vancomycin HCl 1000 mg/IV Miscellaneous Supplies 1 each/ Dextrose 270 ml @ 270 mls/hr Q8H IV 01/07/19 02:00 01/08/19 10:28 270 MLS/HR VS,Fishbone, I+O VS, Fishbone, I+O Laboratory Tests 01/08/19 04:44 Red Blood Count 5.08, Mean Corpuscular Volume 89.8, Mean Corpuscular Hemoglobin 27.0, Mean Corpuscular Hemoglobin Concent 30.0 L, Red Cell Distribution Width 16.8 H, Neutrophils (%) (Auto) 67.5 H, Lymphocytes (%) (Auto) 17.8 L, Monocytes (%) (Auto) 12.1 H, Eosinophils (%) (Auto) 1.5, Basophils (%) (Auto) 0.5, Neutrophils # (Auto) 4.4, Lymphocytes # (Auto) 1.2 L, Monocytes # (Auto) 0.8, Eosinophils # (Auto) 0.1, Basophils # (Auto) 0.0, Calcium Level 8.1 L Vital Signs Date Time Temp Pulse Resp B/P (MAP) Pulse Ox O2 Delivery O2 Flow Rate FiO2 01/08/19 08:34 19 01/08/19 08:33 91 01/08/19 08:32 162/78 01/08/19 04:00 97.9 98 25.0 01/08/19 04:00 25 01/07/19 07:44 Nasal Cannula I&O- Last 24 Hours up to 6 AM 01/08/19 06:00 Intake Total 2530 ml Output Total 5476 ml Balance -2946 ml BRODY RODRIGUEZ MD Jan 08, 2019 10:34
[2019-01-08] MEDS ORDERED: ONDANSETRON 4MG/2ML VIAL (J2405) IV PRN (14:45)
[2019-01-08 16:00] VITALS: BP 170/77
[2019-01-08] MEDS: EUCERIN 120GM CREAM TOP SCH (16:09)
[2019-01-08 18:55] VITALS: BP 167/77
[2019-01-08] MEDS: PRAVASTATIN 20 MG TAB PO SCH (20:38)
[2019-01-08] MEDS: LATANOPROST 0.005% OPHTH SOLN 2.5 ML OU SCH (21:09)
[2019-01-08 22:00] VITALS: BP 174/80
[2019-01-09] VITALS (7 sets, daily range): BP systolic 138–170; BP diastolic 78–89
[2019-01-09] MEDS: PIPERACILLIN/TAZOBACTAM SOD 3.375 GM in D5W MINI-BAG PLUS 50 ML IV SCH ×4 (01:05→20:19)
[2019-01-09] MEDS: VANCOMYCIN HCL 1,000 MG, VIAL MATE ADAPTER 1 EACH in D5W 250 ML IV SCH ×3 (02:04→17:29)
[2019-01-09] MEDS: IPRATROPIUM 0.5MG/ALBUTEROL 2.5MG INH SOL UD 3ML (DUONEB)(J7620) NEB SCH ×4 (02:29→19:59)
[2019-01-09 06:35] LABS: BASO # 0.1 10^3/uL (0.0-0.2); BASO % 0.7 % (0.0-1.0); EOS # 0.2 10^3/uL (0.0-0.50); EOS % 2.9 % (0.0-3.0); HEMATOCRIT 45.9 % (42.0-52.0); LYMPH # 1.5 10^3/uL (1.5-4.5); LYMPH % 17.9 % (24.0-44.0); MEAN CORPUSCULAR HEMOGLOBIN 26.8 pg (27.0-33.0); MEAN CORPUSCULAR HGB CONC 30.5 g/dl (32.0-36.5); MEAN CORPUSCULAR VOLUME 87.9 fl (80.0-96.0); MONO # 0.8 10^3/uL (0.0-0.8); MONO % 10.1 % (0.0-5.0); NEUTROPHILS # 5.6 10^3/uL (1.8-7.7); NEUTROPHILS % 67.4 % (36.0-66.0); PLATELET COUNT, AUTOMATED 146 10^3/uL (150-450); RED BLOOD COUNT 5.22 10^6/uL (4.30-6.10); WHITE BLOOD COUNT 8.3 10^3/uL (4.0-10.0)
[2019-01-09 07:02] LABS: BLOOD UREA NITROGEN 12 MG/DL (7-18); CALCIUM LEVEL 8.8 MG/DL (8.8-10.2); CARBON DIOXIDE LEVEL 35 MEQ/L (21-32); CHLORIDE LEVEL 101 MEQ/L (98-107); CREATININE FOR GFR 1.03 MG/DL (0.70-1.30); DIGOXIN LEVEL 0.4 NG/ML (0.5-2.0); GLOMERULAR FILTRATION RATE > 60.0 (>49); GLUCOSE, FASTING 194 MG/DL (70-100); POTASSIUM SERUM 3.5 MEQ/L (3.5-5.1); SODIUM LEVEL 139 MEQ/L (136-145)
[2019-01-09] MEDS: HumaLOG INSULIN (NovoLOG) PER UNIT SC SCH ×4 (07:38→20:22)
[2019-01-09] MEDS: EUCERIN 120GM CREAM TOP SCH (07:38)
[2019-01-09] MEDS: HEPARIN SOD (PORCINE) 5000 UNITS/ML VIAL SC SCH ×2 (07:39→20:23)
[2019-01-09] MEDS: ASPIRIN 81 MG ENTERIC TAB PO SCH ×2 (07:41→20:23)
[2019-01-09] MEDS: LISINOPRIL 5 MG TAB PO SCH (07:41)
[2019-01-09] MEDS: GABAPENTIN 400 MG CAP PO SCH ×4 (07:41→20:23)
[2019-01-09] MEDS: METOPROLOL TART 25 MG TABLET PO SCH ×2 (07:42→20:24)
[2019-01-09] MEDS: DIGOXIN 0.125 MG TAB PO SCH (07:42)
[2019-01-09] MEDS: oxyCODONE 5MG TAB PO PRN ×3 (07:45→21:12)
[2019-01-09] MEDS: glipiZIDE XL 5 MG TABCR PO SCH (08:50)
[2019-01-09] MEDS ORDERED: LISINOPRIL 10 MG TAB PO SCH (09:00)
[2019-01-09] MEDS ORDERED: LISINOPRIL 5 MG TAB PO ONE (09:30)
--- NOTE | 2019-01-09 17:58 | CR ---
DATE OF CONSULTATION: 01/09/2019 [facility]ED WOUND CARE CONSULT VIA TELEMEDICINE CONSULT REQUESTED BY: Dr. Mercado This is regarding wound care treatment for the patient's left lower extremity. Patient under the care of Dr. Renee. A 63-year-old noncompliant, non-diabetic male who has been seen at the wound care center over the last two years for bilateral, lower extremity wounds. The patient has undergone angioplasty involving his right lower extremity and then a year and half later involving his left lower extremity. The delay on the treatment for his left leg was of patient compliance and insurance. This has resulted in a rather extensive recalcitrant wound. As a result, his right lower extremity has done well and there is no open wounds involving the right lower extremity. He does however, have a small stable wound involving the medial aspect of the right great toe, which has no deep structures involved. The wounds involving the left lower extremity are chronic, diffuse but have improved over the last six months. He has been treated with a multitude of treatment options, including collagen with Prontosan, wound debridement on a weekly and then biweekly basis, Hydrofera Blue compression dressings. He was recently hospitalized for pneumonia and had a positive blood culture and is on vancomycin and Zosyn. On visual inspection via telemedicine, the left lower extremity wounds, which had involved the anterior pretibial area, have now all but healed and the lateral posterior wounds have shown significant improvement. There is granulation tissue with no deep structures seen and the drainage is minimal to moderate serosanguineous without odor. This represents an improvement and can be correlated with hospitalization and bed rest improving gravitational dependent edema which has plagued this patient thank contributed to the chronicity of his wounds. . TREATMENT RECOMMENDATIONS: Wounds can be cleaned with Vashe wound cleanser and then covered with Hydrofera Blue. This can be secured with a Kerlix dressing and, depending upon the amount of dressing, an Opti lock coverage can be added. This can be placed over the Hydrofera Blue or outside the Kerlix dressing. Mild compression either with Tubigrip stockings or a Coban wrap can also be added. Any compression wrap should be started at the metatarsal level to the popliteal level. When the patient is discharged, he should be followed up at our wound care center as before. To assist in scheduling, please make the referral to the wound care center several days prior to expected discharge so that we can plan accordingly. In general, the patient seems to be clinically stable with improvement of his wounds. MTDD
--- NOTE | 2019-01-09 18:17 | IPNPDOC ---
Text Note Date of Service The patient was seen on 01/09/19. NOTE Pt was seen and examined at bedside. Pt on contact isolation for Hx of MRSA i nfection. Uses BiPAP at night. Day time on NC 2lit O2 sat >95%. No more episode of vomiting reported. Pt on diet tolerating well. Upon my encounter pt denies any dyspnea, chest pain or palpitations. He has not been out of bed yet due to generalized motor weakness. able to move in bed with assistance. Continues to clinically improve. PHYSICAL EXAMINATION: VITAL SIGNS: Please see below. GENERAL: AAOx3 HEENT: neck supple sclera not icteric no JVD CARDIOVASCULAR: S1 S2 no murmur RESPIRATORY: no wheezes no rales diminished breath sounds in bases ABDOMINAL: soft not tender not distended EXTREMITIES: chronic dermatitis changes with discoloration bilat, Lt leg wound moderate sero sanguineous discharge, not purulent NEUROLOGICAL: grossly intact PSYCHOLOGICAL: mood affect appropriate Echocardiogram: Echocardiogram shows ejection fraction of approximately 70% with grade 1 diastolic dysfunction. Right ventricular systolic pressure is elevated at 78 mmHg, which could suggest pulmonary hypertension. Vital Signs Date Time Temp Pulse Resp B/P (MAP) Pulse Ox O2 Delivery O2 Flow Rate FiO2 01/09/19 22:00 97.4 97 20 170/84 (112) 93 01/09/19 21:45 20 01/09/19 21:12 20 01/09/19 20:24 97 170/84 01/09/19 18:00 98.4 92 18 138/89 (105) 99 01/09/19 15:10 16 01/09/19 14:00 98.7 91 17 139/84 (102) 99 01/09/19 10:28 188/86 01/09/19 10:00 97.4 88 18 141/78 (99) 94 01/09/19 07:45 96 18 188/86 01/09/19 07:42 96 01/09/19 07:42 96 188/86 01/09/19 07:41 188/86 01/09/19 06:00 97.9 87 18 165/78 (107) 18 01/09/19 02:00 97.8 74 18 169/82 (111) 94 Intake & Output 01/10/19 06:00 Intake Total 1630 ml Output Total 5151 ml Balance -3521 ml Laboratory Tests 01/09/19 05:50: White Blood Count 8.3, Red Blood Count 5.22, Hemoglobin 14.0, Hematocrit 45.9, Mean Corpuscular Volume 87.9, Mean Corpuscular Hemoglobin 26.8L, Mean Corpuscu lar Hemoglobin Concent 30.5L, Red Cell Distribution Width 16.4H, Platelet Count 146L, Neutrophils (%) (Auto) 67.4H, Lymphocytes (%) (Auto) 17.9L, Monocytes (%) (Auto) 10.1H, Eosinophils (%) (Auto) 2.9, Basophils (%) (Auto) 0.7, Neutrophils # (Auto) 5.6, Lymphocytes # (Auto) 1.5, Monocytes # (Auto) 0.8, Eosinophils # (Auto) 0.2, Basophils # (Auto) 0.1, Immature Granulocyte % (Auto) 1.0, Nucleated Red Blood Cells % (auto) 0.0, Blood Urea Nitrogen 12, Creatinine 1.03, Sodium Level 139, Potassium Level 3.5, Chloride Level 101, Carbon Dioxide Level 35H, Calcium Level 8.8, Anion Gap 3L, Glomerular Filtration Rate > 60.0, Fasting Glucose 194H, Digoxin Level 0.4L 01/09/19 06:34: Bedside Glucose (Misc Panel) 182H 01/09/19 11:18: Bedside Glucose (Misc Panel) 321H 01/09/19 16:19: Bedside Glucose (Misc Panel) 249H 01/09/19 19:48: Bedside Glucose (Misc Panel) 318H Microbiology 01/08/19 Gram Stain - Final, Complete 01/08/19 Wound Culture - Final, Complete Corynebacterium Species Current Medications Medications (Trade) Dose Ordered Sig/Lexi Route PRN Reason Start Time Stop Time Status Last Admin Dose Admin Albuterol/ Ipratropium (Duoneb (Ipr 0.5mg/Alb 2.5mg)) 3 ml RQ6H NEB 01/05/19 14:00 01/09/19 19:59 3 ML Aspirin (Ecotrin) 81 mg BID PO 01/05/19 09:00 01/09/19 20:23 81 MG Digoxin (Lanoxin) 0.125 mg DAILY PO 01/06/19 09:00 01/09/19 07:42 0.125 MG Fentanyl (Duragesic) 50 mcg Q3D TD 01/05/19 09:00 01/08/19 08:34 50 MCG Gabapentin (Neurontin) 800 mg QID PO 01/05/19 09:00 01/09/19 20:23 800 MG Glipizide (Glucotrol Xl) 10 mg DAILY@0730 PO 01/05/19 07:30 01/09/19 08:50 10 MG Heparin Sodium (Porcine) (Heparin) 5,000 units Q12H SC 01/05/19 09:00 01/09/19 20:23 5,000 UNITS Insulin Human Lispro (HumaLOG INSULIN) SEE PROTOCOL TABLE QHS SC 01/08/19 21:00 01/09/19 20:22 4 UNITS Latanoprost (Xalatan 0.005% Op Soln) 1 drop QHS OU 01/05/19 21:00 01/09/19 20:27 1 DROP Metoprolol Tartrate (Lopressor) 25 mg BID PO 01/05/19 09:00 01/09/19 20:24 25 MG Mineral Oil/White Petrolatum (Eucerin) apply to left lower l... DAILY TOP 01/08/19 09:00 01/09/19 07:38 1 DOSE Oxycodone HCl (Roxicodone, Oxyir) 5 mg Q6H PRN PO PAIN 01/06/19 09:15 01/09/19 21:12 5 MG Piperacillin Sod/ Tazobactam Sod 3.375 gm/Dextrose 50 ml @ 50 mls/hr Q6H IV 01/05/19 08:00 01/09/19 20:19 50 MLS/HR Pravastatin Sodium (Pravachol) 20 mg QHS PO 01/05/19 21:00 01/09/19 20:23 20 MG Promethazine HCl (PHENERGAN INJection) 12.5 mg Q6HP PRN IV NAUSEA 01/06/19 15:45 01/06/19 16:04 12.5 MG Vancomycin HCl 1000 mg/IV Miscellaneous Supplies 1 each/ Dextrose 270 ml @ 270 mls/hr Q8H IV 01/07/19 02:00 01/09/19 17:29 270 MLS/HR ASSESSMENT/PLAN: 1. Acute on chronic hypoxic and hypercarbic respiratory failure clinically improved significantly cont BiPAP at night time PRN for hypoxia <90% , respiratory distress 2. Sepsis hemodynamically improved source is possible chronic diabetic LE wound versus pneumonia cont broad spectrum antibiotics Pending blood culture Wound culture 3. CAD s/p PCI no clinical signs/symptoms of angina cont ASA ACEI betablocker 4. Chronic lower extremity wound sec to T2DM wound care consult appreciated daily wound care cont Abx send for cultures SW/CM Cont PT/OT VS,Fishbone, I+O VS, Fishbone, I+O Laboratory Tests 01/09/19 05:50 Red Blood Count 5.22, Mean Corpuscular Volume 87.9, Mean Corpuscular Hemoglobin 26.8 L, Mean Corpuscular Hemoglobin Concent 30.5 L, Red Cell Distribution Width 16.4 H, Neutrophils (%) (Auto) 67.4 H, Lymphocytes (%) (Auto) 17.9 L, Monocytes (%) (Auto) 10.1 H, Eosinophils (%) (Auto) 2.9, Basophils (%) (Auto) 0.7, Neutrophils # (Auto) 5.6, Lymphocytes # (Auto) 1.5, Monocytes # (Auto) 0.8, Eosinophils # (Auto) 0.2, Basophils # (Auto) 0.1, Calcium Level 8.8 Vital Signs Date Time Temp Pulse Resp B/P (MAP) Pulse Ox O2 Delivery O2 Flow Rate FiO2 01/09/19 18:00 98.4 92 18 138/89 (105) 99 01/08/19 04:00 25.0 01/08/19 04:00 25 01/07/19 07:44 Nasal Cannula I&O- Last 24 Hours up to 6 AM 01/09/19 06:00 Intake Total 2350 ml Output Total 2700 ml Balance -350 ml BRODY RODRIGUEZ MD Jan 09, 2019 18:17
[2019-01-09] MEDS: PRAVASTATIN 20 MG TAB PO SCH (20:23)
[2019-01-09] MEDS: LATANOPROST 0.005% OPHTH SOLN 2.5 ML OU SCH (20:27)
[2019-01-10] MEDS: PIPERACILLIN/TAZOBACTAM SOD 3.375 GM in D5W MINI-BAG PLUS 50 ML IV SCH ×3 (01:13→13:22)
[2019-01-10] MEDS: IPRATROPIUM 0.5MG/ALBUTEROL 2.5MG INH SOL UD 3ML (DUONEB)(J7620) NEB SCH ×3 (02:00→13:02)
[2019-01-10] MEDS: VANCOMYCIN HCL 1,000 MG, VIAL MATE ADAPTER 1 EACH in D5W 250 ML IV SCH ×2 (02:17→09:42)
[2019-01-10 03:43] VITALS: BP 148/72
[2019-01-10] MEDS: oxyCODONE 5MG TAB PO PRN (03:44)
[2019-01-10 06:00] VITALS: BP 166/86
[2019-01-10 06:39] LABS: BASO # 0.1 10^3/uL (0.0-0.2); BASO % 0.8 % (0.0-1.0); EOS # 0.3 10^3/uL (0.0-0.50); HEMATOCRIT 51.8 % (42.0-52.0); LYMPH # 1.4 10^3/uL (1.5-4.5); LYMPH % 13.8 % (24.0-44.0); MEAN CORPUSCULAR HEMOGLOBIN 26.2 pg (27.0-33.0); MEAN CORPUSCULAR HGB CONC 31.1 g/dl (32.0-36.5); MEAN CORPUSCULAR VOLUME 84.4 fl (80.0-96.0); MONO # 0.8 10^3/uL (0.0-0.8); MONO % 8.3 % (0.0-5.0); NEUTROPHILS # 7.4 10^3/uL (1.8-7.7); NEUTROPHILS % 73.1 % (36.0-66.0); PLATELET COUNT, AUTOMATED 185 10^3/uL (150-450); RED BLOOD COUNT 6.14 10^6/uL (4.30-6.10); WHITE BLOOD COUNT 10.1 10^3/uL (4.0-10.0)
[2019-01-10 06:40] LABS: HEMOGLOBIN 16.1 g/dl (13.5-17.5)
[2019-01-10 06:58] LABS: BLOOD UREA NITROGEN 13 MG/DL (7-18); CALCIUM LEVEL 9.4 MG/DL (8.8-10.2); CARBON DIOXIDE LEVEL 33 MEQ/L (21-32); CHLORIDE LEVEL 99 MEQ/L (98-107); CREATININE FOR GFR 1.12 MG/DL (0.70-1.30); GLOMERULAR FILTRATION RATE > 60.0 (>49); GLUCOSE, FASTING 262 MG/DL (70-100); POTASSIUM SERUM 3.7 MEQ/L (3.5-5.1); SODIUM LEVEL 136 MEQ/L (136-145)
[2019-01-10] MEDS: HumaLOG INSULIN (NovoLOG) PER UNIT SC SCH ×2 (08:40→12:25)
[2019-01-10] MEDS: HEPARIN SOD (PORCINE) 5000 UNITS/ML VIAL SC SCH (08:40)
[2019-01-10] MEDS: ASPIRIN 81 MG ENTERIC TAB PO SCH (08:41)
[2019-01-10] MEDS: glipiZIDE XL 5 MG TABCR PO SCH (08:41)
[2019-01-10] MEDS: GABAPENTIN 400 MG CAP PO SCH ×2 (08:41→12:25)
[2019-01-10] MEDS: METOPROLOL TART 25 MG TABLET PO SCH (08:42)
[2019-01-10 08:43] VITALS: BP 166/86
[2019-01-10] MEDS: DIGOXIN 0.125 MG TAB PO SCH (08:43)
[2019-01-10] MEDS: EUCERIN 120GM CREAM TOP SCH (08:44)
[2019-01-10] MEDS ORDERED: LISINOPRIL 10 MG TAB PO SCH (09:00)
[2019-01-10 10:00] VITALS: BP 141/85
[2019-01-10] MEDS ORDERED: LEVA750T7 PO (13:44)
--- NOTE | 2019-01-12 08:59 | DS.PDOC ---
Discharge Summary General Date of Admission Jan 05, 2019 at 01:18 Date of Discharge 01/10/19 Primary Care Physician: A Attending Physician: BRODY RODRIGUEZ MD Specialist/Consultants Involve: Ashu Powers MD [facility] Specialist/Consultants Involve Wound care Discharge Summary PROCEDURES PERFORMED DURING STAY: None. ADMITTING DIAGNOSES: 1. Sepsis, 2. Pneumonia 3. Acute on chronic hypoxic and hypercarbic respiratory failure, 4. Uncontrolled DM, 5. MEHUL, 6. B/L chronic foot ulcers L worse than R. DISCHARGE DIAGNOSES: 1. As above. COMPLICATIONS/CHIEF COMPLAINT: Sepsis. HISTORY OF PRESENT ILLNESS: 63 year old male with PMH of Insulin dependent diabetes, neuropathy, CKD, peripheral arterial and venous disease, chronic slow healing wounds in the leg , CLAUDIA does not use his CPAP presented to the [facility] ED for increased shakiness, jerking of his body so that he was having difficulty in ambulation. He was afraid he was going to fall so went to the ED. In the [place] ED he was found to have right lower lobe pneumonia. He was hypotensive to 80/ 68, and lactic acidosis of 3.1. His potassium was elevated to 7.1 and repeat was at 7.0 He was treated for hyperkalemia there with iv insulin. EKG did not show any abnormality so was not given calcium gluconate. He also had elevated BUN/Creatinine to 30/1.8, His CBC was 20K and Hb was 14.1 He also had mildly elevated troponin at 0.11 and his d-dimer was also elevated. He was diagnosed with Sepsis due to pneumonia, MEHUL and hyperkalemia and transferred here. Upon admission patient complained of shakiness of his whole body which has progressively increased over the past several days. Also his muscles have been jumping frequently. He was feeling weak and diaphoretic at home but did not have any fever or chills. Did not have any chest pain or cough or SOB. ABG here showed a pH of 7.25/pco2 of 65/ pO2 of 88 with 2 liters. HOSPITAL COURSE: 1. Acute on chronic hypoxic and hypercarbic respiratory failure--this is m ultifactorial. Sepsis, COPD, obstructive sleep apnea and sedation from chronic narcotic use are all contributory. Patient was initially admitted at ICU for close monitoring and Bipap, responded well to BiPap and has been transitioned to O2 by nasal cannula. transferred to floor after the improvement of dyspnea. He still needed the BiPAP at night. By report, remarkably, the patient is not on home O2. 2. Sepsis--characterized by hypotension, tachycardia, lactic acidosis, acute kidney injury. Improved with empiric antibiotics and aggressive IV hydration. The patient had a right lower lobe infiltrate that could be consistent with pneumonia. Blood culture negative. 3. Rkm-prszepn-sxjjreikt diabetes mellitus--with complications of neuropathy and likely vasculopathy given the wounds to his left lower extremity. Recevied basal bolus insulin and oral agents and we have also made sliding scale insulin available. Metformin was held due to lactic acidosis. 4. Wound care for diabetic ulcer wounds, see above recommendations 4. Myoclonic jerks--these could be attributed to his hypercarbia associated with his respiratory failure. The patient is not very mobile at baseline. Additional contributory factor is he uses significant narcotics for chronic pain--fentanyl patch and oxycodone. 5. Coronary artery disease--the patient has a history of requiring percutaneous intervention with stent placement. Of interest, patient did develop accelerated heart rate concerning for atrial fibrillation. Patient did undergo evaluation by echocardiogram. He has been loaded with digoxin, Hr was controlled upon discharge. Echocardiogram: Echocardiogram shows ejection fraction of approximately 70% with grade 1 diastolic dysfunction. Right ventricular systolic pressure is elevated at 78 mmHg, which could suggest pulmonary hypertension. DISCHARGE MEDICATIONS: Please see below. ALLERGIES: Please see below. PHYSICAL EXAMINATION ON DISCHARGE: VITAL SIGNS: Please see below. GENERAL: AAOx3 HEENT: neck supple sclera not icteric no JVD CARDIOVASCULAR: S1 S2 no murmur RESPIRATORY: no wheezes no rales diminished breath sounds in bases ABDOMINAL: soft not tender not distended EXTREMITIES: chronic dermatitis changes with discoloration bilat, Lt leg wound moderate sero sanguineous discharge, not purulent NEUROLOGICAL: grossly intact PSYCHOLOGICAL: mood affect appropriate Microbiology 01/08/19 Blood Culture - Final, Complete NO GROWTH AFTER 5 DAYS 01/08/19 Gram Stain - Final, Complete 01/08/19 Wound Culture - Final, Complete Corynebacterium Species LABORATORY DATA: Please see below. IMAGING: PORTABLE CHEST X-RAY Service Date&Time: 01/05/19 0700 Impression: Chronic interstitial coarsening, suggestive of chronic lung disease.Cardiomegaly.Possible hiatal hernia. PROGNOSIS: Fair ACTIVITY: As tolerated , DIET: Diabetic, DISCHARGE PLAN: DISPOSITION: Home, Self-Care. DISCHARGE INSTRUCTIONS: 1. Diabetes control 2. Wound hygiene ITEMS TO FOLLOWUP ON ON OUTPATIENT: 1. Follow up with PCP. 2. Follow with Wound care clinic DISCHARGE CONDITION: Stable, afebrile, no dyspnea, no chest pain. TIME SPENT ON DISCHARGE: Greater than 20 minutes. Vital Signs/I&Os Vital Signs Date Time Temp Pulse Resp B/P (MAP) Pulse Ox O2 Delivery O2 Flow Rate FiO2 01/10/19 10:00 96.8 92 17 141/85 (103) 95 01/08/19 04:00 25.0 01/08/19 04:00 25 01/07/19 07:44 Nasal Cannula Laboratory Data FSBS Laboratory Tests 01/09/19 05:50 Red Blood Count 5.22, Mean Corpuscular Volume 87.9, Mean Corpuscular Hemoglobin 26.8, Mean Corpuscular Hemoglobin Concent 30.5, Red Cell Distribution Width 16.4, Neutrophils (%) (Auto) 67.4, Lymphocytes (%) (Auto) 17.9, Monocytes (%) (Auto) 10.1, Eosinophils (%) (Auto) 2.9, Basophils (%) (Auto) 0.7, Neutrophils # (Auto) 5.6, Lymphocytes # (Auto) 1.5, Monocytes # (Auto) 0.8, Eosinophils # (Auto) 0.2, Basophils # (Auto) 0.1, Calcium Level 8.8 01/10/19 05:54 Red Blood Count 6.14, Mean Corpuscular Volume 84.4, Mean Corpuscular Hemoglobin 26.2, Mean Corpuscular Hemoglobin Concent 31.1, Red Cell Distribution Width 16.8, Neutrophils (%) (Auto) 73.1, Lymphocytes (%) (Auto) 13.8, Monocytes (%) (Auto) 8.3, Eosinophils (%) (Auto) 3.0, Basophils (%) (Auto) 0.8, Neutrophils # (Auto) 7.4, Lymphocytes # (Auto) 1.4, Monocytes # (Auto) 0.8, Eosinophils # (Auto) 0.3, Basophils # (Auto) 0.1, Calcium Level 9.4 Microbiology Microbiology 01/08/19 Blood Culture - Preliminary, Resulted No Growth after 72 hours. All specime... 01/08/19 Gram Stain - Final, Complete 01/08/19 Wound Culture - Final, Complete Corynebacterium Species Discharge Medications Scheduled Aspirin (Ecotrin) 81 Mg Tablet.dr, 81 MG PO BID, (Reported) Duloxetine HCl (Duloxetine HCl) 60 Mg Capsule.dr, 60 MG PO DAILY, (Reported) Gabapentin (Gabapentin) 800 Mg Tablet, 800 MG PO QID, (Reported) Glipizide (Glipizide ER) 10 Mg Tab.er.24, 10 MG PO DAILY, (Reported) Insulin Human NPH (Humulin N) 100 Unit/1 Ml Vial, 66 UNITS SC QAM, (Reported) Insulin Human NPH (Humulin N) 100 Unit/1 Ml Vial, 72 UNITS SC QPM, (Reported) AT DINNER Insulin Human Regular (Humulin R) 100 Unit/1 Ml Vial, 36 UNITS SC BID, (Reported) AT BREAKFAST AND LUNCH Insulin Human Regular (Humulin R) 100 Unit/1 Ml Vial, 38 UNITS SC QPM, (Reported) AT DINNER Latanoprost (Xalatan) 0.005% 2.5ML Drops, 1 DROP OU QHS, (Reported) Levofloxacin (Levaquin) 750 Mg Tablet, 1 TAB PO DAILY Lisinopril (Lisinopril) 10 Mg Tablet, 5 MG PO DAILY, (Reported) Metformin HCl (Metformin HCl) 1,000 Mg Tablet, 1,000 MG PO BID, (Reported) Metoprolol Tartrate (Metoprolol Tartrate) 25 Mg Tablet, 25 MG PO BID, (Reported) Niacin (Niacor) 500 Mg Tablet, 1,000 MG PO QPM, (Reported) [place]-3/Dha/Epa/Fish Oil (Fish Oil 1,200 mg Softgel) 1 Each Capsule.dr, 1,200 MG PO DAILY, (Reported) Pravastatin Sodium (Pravastatin Sodium) 20 Mg Tablet, 20 MG PO QHS, (Reported) Scheduled PRN Oxycodone HCl (Oxycodone HCl) 10 Mg Tablet, 10 MG PO Q6H PRN for PAIN, (Re ported) Allergies Coded Allergies: No Known Drug Allergies (Verified Allergy, Unknown, 01/05/19) BRODY RODRIGUEZ MD Jan 12, 2019 08:59
== END 2019-01-10 15:39 | disposition home health service (06) | DRG 871 ==
LOC: M ICU 01-05 01:18 → M MSPAV 01-08 18:48
PROVIDERS: ADMIT Internal Medicine Nephrology; ATTEND Hospitalist
DX: A41.9 Sepsis, unspecified organism (principal); J18.9 Pneumonia, unspecified organism; J96.01 Acute respiratory failure with hypoxia; J96.02 Acute respiratory failure with hypercapnia; N17.9 Acute kidney failure, unspecified; E87.2 Acidosis; R65.20 Severe sepsis without septic shock; E11.621 Type 2 diabetes mellitus with foot ulcer; E11.51 Type 2 diabetes mellitus with diabetic peripheral angiopathy without gangrene; Z79.4 Long term (current) use of insulin; N18.9 Chronic kidney disease, unspecified; G47.33 Obstructive sleep apnea (adult) (pediatric); Z91.19 Patient's noncompliance with other medical treatment and regimen; J44.9 Chronic obstructive pulmonary disease, unspecified; I25.10 Atherosclerotic heart disease of native coronary artery without angina pectoris; Z79.82 Long term (current) use of aspirin; Z79.899 Other long term (current) drug therapy; E78.5 Hyperlipidemia, unspecified; I12.9 Hypertensive chronic kidney disease with stage 1 through stage 4 chronic kidney disease, or unspecified chronic kidney disease; Z95.2 Presence of prosthetic heart valve; F17.200 Nicotine dependence, unspecified, uncomplicated; E87.5 Hyperkalemia; M19.90 Unspecified osteoarthritis, unspecified site; Z91.14 Patient's other noncompliance with medication regimen; K29.70 Gastritis, unspecified, without bleeding

== ENCOUNTER 2019-03-08 14:52 | Inpatient (IN) | payer MEDICARE, BC ==
[~2019-03-08] VITALS: Ht 180.3 cm; Wt 105.4 kg
[~2019-03-08 14:52] MED LIST changes: +DULO60CA35 PO; +ECOT81TA5 PO; +FENT50DI5 TD; +GLIP10TA18 PO; +INSURSD SC; +LEVA750T7 PO; +MM S100C PO; +NIAC500T3 PO; +OMEG12003 PO; +PRAV20TA2 PO; -STOO100C PO; +XALA0.007 OU
[2019-03-08 16:00] VITALS: BP 100/66
[2019-03-08] MEDS ORDERED: BISACODYL 10 MG SUPP PR PRN (16:15)
[2019-03-08] MEDS ORDERED: DEXTROSE 50% 50 ML SYRINGE IV PRN (16:15)
[2019-03-08] MEDS ORDERED: MOM 30ML SUSPENSION UDC PO PRN (16:15)
[2019-03-08] MEDS ORDERED: ACETAMINOPHEN TAB 650MG DOSE (2X325MG) PO PRN (16:15)
[2019-03-08] MEDS ORDERED: GLUCAGON FOR INJ 1 MG VIAL (J1610) SC PRN (16:15)
[2019-03-08] MEDS ORDERED: GLUCOSE 4 GM CHEW TABLET PO PRN (16:15)
--- NOTE | 2019-03-08 17:17 | HPEPDOC ---
[facility] Note DATE OF ADMISSION: 03/08/19 SOURCE OF ADMISSION INFORMATION: patient and [facility] records CHIEF COMPLAINT: peripheral polyneuropathy secondary to diabetes and PVD HISTORY OF PRESENT ILLNESS: 63M pmh DM, peripheral neuropathy, HLD, HTN, PAD with venous insufficiency, COPD, suspected CLAUDIA, left toe amputation in 2018 and nonhealing ulcers on he left lower calf presented to [facility] from [place] on 03/04/19 with fevers, chills, tachypnea, and bilateral UE shaking concerning for seizure without LOC. He was started on empiric IV antibiotics, but eventually taken off after 4 days when Ucx, blood cultures, and CXR came back negative. He was evaluated by pulmonology for PFTs which were inconclusive and patient told to follow-up with outpatient pulm for sleep study and repeat PFTs. He was diagnosed with AFib and started on Eliquis in addition to beta-blockers. He was seen by wound care who made dressing recommendations. He was determined to have asterixix with low suspicion for seizures which was treated with a reduction in his gabapentin dosing. CT head showed, "No acute intracranial hemorrhage, evidence of acute territorial infarction, or other acute intracranial disease process.He was evaluated by wound care who made recommendations for treatment and told to follow-up with outpatient wound care clinic where he is already followed. He was evaluated by therapy and dee to have impairments well below his prior level of function and deemed medically appropriate for discharge to ARU on 03/08/19. REVIEW OF SYSTEMS: The following is a completed review of systems and has been reviewed. Review of systems otherwise unremarkable. PAIN: Patient self reports no pain EYES: No recent vision changes EARS, NOSE, & THROAT: No throat pain, or dysphagia, or rhinorrhea CARDIOVASCULAR: Denies chest pain or palpitations PULMONARY: Denies shortness of breath GASTROINTESTINAL: Denies constipation/diarrhea GENITOURINARY: no dysuria MUSCULOSKELETAL: cervical stenosis NEUROLOGICAL: peripheral polyneuropathy SKIN: left calf and right D1 toe ulcer PSYCHIATRIC: Unremarkable All other review of systems found to be negative. PAST MEDICAL HISTORY: as per HPI PAST SURGICAL HISTORY: left D1 amputation, cervical fusion ALLERGIES: Please see below. MEDICATIONS: Please see below. 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 GENERAL: Pleasant and cooperative. No acute distress. HEENT: PERRL. Extraocular movements intact. Clear conjunctiva CARDIOVASCULAR: Iregular rate and rhythm. No murmurs, rubs, or gallops LUNGS: Clear to auscultation bilaterally. No wheezes. No rhonchi ABDOMEN: Soft, nontender, nondistended. Positive bowel sounds. Normal active bowel sounds NEUROLOGICAL: Alert and oriented times three. Cranial nerves II through XII grossly intact. Sensation diminished bilateral finger tips and bilateral feet and calves EXTREMITIES: 4+\\5 strength bilateral upper extremities. 4\\5 strength bilateral hip flexion, knee extension, 3+/5 ankle DF and EHL (on the right only) decreased ROM left hip SKIN: left [id number]-whipbviw calf with venoud stasis ulcer, sanguinous drainage, no foul odor, appears clean right foot D1 ulcer c/d/i LABORATORY DATA: Please see below. IMAGING:Imaging documentation personally reviewed by record FUNCTIONAL STATUS: Premorbid: Independent with all activities of daily life as well as mobility On Admission: Maximum assistance for bathing, upper body dressing, bed chair and wheelchair transfers, toilet transfers, ambulation. GOALS: Mod-I ambulating household distances, toileting bathing, dressing, functional transfers, medical optimization, caregiver training, assess for DME needs. ASSESSMENT:63-year-old M with past medical history of CAD, DM, PVD who presents status post sepsis due to left calf venous wounds in setting of worsening peripheral polyneuropathy. PLAN: 1. Rehab- PT strenghthen, stretch, and maintain ROM bilat LE, TTWB LLE OT- PT strenghthen, stretch, and maintain ROM bilat UE, teach ADL management 2. Neuro: peripheral neuropathy secondary to poorly controlled DM and PVD with gait impairment- optimize glucose control 3. CArdio: CAD s/p stents c/u ASA, recently diagnosed Afib started on Eliquis and metoprolol, medicine consulted to assist in overall management -HTN, c/u lisinopril and amlodipine 4. Resp: current smoker, c/u breathing treatments, encourage incentive spirometry 5. Endo: poorly controlled DM, c/u gipizide and Insulin Long acting plus ISS, avoid metformin fro elevated creatinine 6. ID: s/p 4 day course of VAnco/Zosyn with negative blood cultures, left calf wound does not appear infected at this time, will monitor for leukocytosis and order ESR/CRP 7. SKin: right foot first digit PAD ulcer and left calf venous ulcer, c/u dressing changes 8. DVT ppx: eliquis 9. GI ppx: protonix 10. Pain: c/u oxycodone, gabapentin, and Cymbalta, patient long-term opioid user followed by pain clinic 10. DIspo: tbd POST ADMISSION PHYSICIAN EVALUATION: Medical and functional status: Description of medical status, medical assessment: As above. Rehabilitation diagnosis and current and prior cold morbid medical conditions as above. Risk of complications and plans to mitigate them as above. Description of functional status current status is as above. Prior status as above. Status compared to preadmission: There are no clinically significant differences between the patient's current status and the information described on the preadmission screening document. Treatment plan anticipated: Treatment plan is as described above. Required disciplines including physical therapy, occupational therapy, others as noted above Intensity of services: 3 hours a day, 6 days a week. Special considerations: There are no specific special or safety considerations that would likely preclude immediate implementation of an intensive rehabilitation program or subsequently influence the plan of care ATTESTATION: Considering all the information above, it is my best judgment that this patient requires intensive rehabilitation therapy as described above and an inpatient hospital environment due to the complexity of nursing, medical, and rehabilitation needs required by the patient. Furthermore, this patient can reasonably be expected to participate in an benefit from an inpatient rehabilitation stay with an interdisciplinary team approach to the delivery of rehabilitation care under the direction and supervision of rehabilitation physician. PROGNOSIS: Good ESTIMATED LENGTH OF STAY:18-21 days. PROJECTED DISCHARGE DESTINATION: Home with family support and any durable medical equipment required to increase functional safety and mobility TIME SPENT COUNSELING AND COORDINATING INITIAL CARE: Greater than 70 minutes. Vital Signs Vital Signs Date Time Temp Pulse Resp B/P (MAP) Pulse Ox O2 Delivery O2 Flow Rate FiO2 03/08/19 16:00 96.6 98 18 100/66 (77) 96 Home Medications Scheduled Amlodipine Besylate (Amlodipine Besylate) 10 Mg Tablet, 10 MG PO DAILY, (Reported) Apixaban (Eliquis) 5 Mg Tablet, 5 MG PO BID, (Reported) Aspirin (Aspir 81) 81 Mg Tablet., 81 MG PO DAILY, (Reported) Duloxetine HCl (Duloxetine HCl) 60 Mg Capsule.dr, 60 MG PO DAILY, (Reported) Gabapentin (Gabapentin) 300 Mg Capsule, 600 MG PO TID, (Reported) Glipizide (Glipizide ER) 10 Mg Tab.er.24, 10 MG PO DAILY, (Reported) Insulin Human NPH (Humulin N) 100 Unit/1 Ml Vial, 66 UNITS SC QAM, (Reported) Insulin Human NPH (Humulin N) 100 Unit/1 Ml Vial, 72 UNITS SC QPM, (Reported) AT DINNER Insulin Human Regular (Humulin R) 100 Unit/1 Ml Vial, 36 UNITS SC BID, (Reported) AT BREAKFAST AND LUNCH Insulin Human Regular (Humulin R) 100 Unit/1 Ml Vial, 38 UNITS SC QPM, (Reported) AT DINNER Latanoprost (Xalatan) 0.005% 2.5ML Drops, 1 DROP OU QHS, (Reported) Lisinopril (Lisinopril) 20 Mg Tablet, 20 MG PO DAILY, (Reported) Magnesium Gluconate (Magnesium Gluconate) 27 Mg Tablet, 500 MG PO DAILY, (Reported) Metformin HCl (Metformin HCl) 1,000 Mg Tablet, 1,000 MG PO BID, (Reported) Metoprolol Tartrate (Metoprolol Tartrate) 25 Mg Tablet, 25 MG PO BID, (Reported) Multivitamins (Thera M Plus Tablet) 1 Each Tablet, 1 TAB PO DAILY, (Reported) Niacin (Niacor) 500 Mg Tablet, 1,000 MG PO QPM, (Reported) Gould-3 Fatty Acids/Fish Oil (Fish Oil 1,000 mg Capsule) 1 Each Capsule, 1,000 MG PO DAILY, (Reported) Pravastatin Sodium (Pravastatin Sodium) 20 Mg Tablet, 20 MG PO DAILY, (Reported) Salmeterol (Serevent Diskus) 50 Mcg Blst.w.dev, 1 PUFF INH BID, (Reported) fentaNYL (fentaNYL) 50 Mcg Patch.td72, 50 MCG TD Q3D, (Reported) APPLIED TO LEFT ABDOMEN Scheduled PRN Albuterol Sulfate (Ventolin Hfa) 18 Gm Hfa.aer.ad, 2 PUFF INH Q6H PRN for WHEEZING, (Reported) Docusate Sodium (Docusate Sodium) 100 Mg Capsule, 100 MG PO BID PRN for CONSTIPATION, (Reported) Oxycodone HCl (Oxycodone HCl) 10 Mg Tablet, 10 MG PO Q6H PRN for PAIN, (Reported) Allergies Coded Allergies: No Known Drug Allergies (Verified Allergy, Unknown, 01/05/19) A-FIB/CHADSVASC A-FIB History Current/History of A-Fib/PAF?: Yes Current PO Anticoag Therapy: Yes ANNETTE PLAZA MD Mar 08, 2019 17:17
[2019-03-08] MEDS ORDERED: VENTAER INH (17:45)
[2019-03-08] MEDS ORDERED: AMLO10TA5 PO (17:59)
[2019-03-08] MEDS ORDERED: FENT50DI5 TD (17:59)
[2019-03-08] MEDS ORDERED: FISH1000 PO (17:59)
[2019-03-08] MEDS ORDERED: DOCU100C16 PO (17:59)
[2019-03-08] MEDS ORDERED: SALMDISK INH (17:59)
[2019-03-08] MEDS ORDERED: ELIQ5TAB PO (17:59)
[2019-03-08] MEDS ORDERED: GABA-843 PO (17:59)
[2019-03-08] MEDS ORDERED: VITMTA PO (17:59)
[2019-03-08] MEDS ORDERED: LISI-538 PO (17:59)
[2019-03-08] MEDS ORDERED: ASPI81TA85 PO (17:59)
[2019-03-08] MEDS ORDERED: MAGN500T6 PO (17:59)
[2019-03-08] MEDS ORDERED: NICOTINE POLACRILEX 2 MG GUM PO PRN (18:30)
[2019-03-08] MEDS: HumaLOG INSULIN (NovoLOG) PER UNIT SC SCH ×2 (18:34→21:25)
[2019-03-08] MEDS: oxyCODONE 5MG TAB PO PRN (18:35)
[2019-03-08 20:00] VITALS: BP 109/54
[2019-03-08] MEDS: IPRATROPIUM 0.5MG/ALBUTEROL 2.5MG INH SOL UD 3ML (DUONEB)(J7620) NEB SCH (20:37)
[2019-03-08] MEDS: SALMETEROL DISKUS 50MCG INHALER (SEREVENT) INH SCH (20:39)
[2019-03-08] MEDS: METOPROLOL TART 25 MG TABLET PO SCH (21:00)
[2019-03-08] MEDS: LEVEMIR (INSULIN DETEMIR) 1 UNITS/0.01ML SC SCH (21:24)
[2019-03-08] MEDS: APIXABAN 5 MG TAB (ELIQUIS) PO SCH (21:25)
[2019-03-08] MEDS: LATANOPROST 0.005% OPHTH SOLN 2.5 ML OU SCH (21:25)
[2019-03-08] MEDS: GABAPENTIN 300 MG CAP PO SCH (21:26)
[2019-03-08] MEDS: NIACIN 250MG EXTENDED RELEASE CAPSULE PO SCH (21:26)
[2019-03-08] MEDS: SENNA 8.6 MG TAB (SENOKOT) PO SCH (21:26)
[2019-03-08] MEDS: DOCUSATE SODIUM 100 MG CAP PO SCH (21:26)
[2019-03-09 05:42] VITALS: BP 129/66
[2019-03-09 06:47] LABS: BASO # 0.1 10^3/uL (0.0-0.2); BASO % 0.8 % (0.0-1.0); EOS # 0.2 10^3/uL (0.0-0.50); EOS % 1.4 % (0.0-3.0); HEMATOCRIT 51.1 % (42.0-52.0); LYMPH # 2.3 10^3/uL (1.5-4.5); LYMPH % 17.3 % (24.0-44.0); MEAN CORPUSCULAR HEMOGLOBIN 27.3 pg (27.0-33.0); MEAN CORPUSCULAR HGB CONC 31.3 g/dl (32.0-36.5); MEAN CORPUSCULAR VOLUME 87.1 fl (80.0-96.0); MONO # 1.2 10^3/uL (0.0-0.8); NEUTROPHILS # 9.3 10^3/uL (1.8-7.7); NEUTROPHILS % 70.3 % (36.0-66.0); PLATELET COUNT, AUTOMATED 208 10^3/uL (150-450); RED BLOOD COUNT 5.87 10^6/uL (4.30-6.10); WHITE BLOOD COUNT 13.2 10^3/uL (4.0-10.0)
[2019-03-09 07:04] LABS: HEMOGLOBIN A1c 7.9 %
[2019-03-09 07:05] LABS: ERYTHROCYTE SEDIMENTATION RATE 2 mm/hr (0-20)
[2019-03-09] MEDS: oxyCODONE 5MG TAB PO PRN ×4 (07:07→22:13)
[2019-03-09 07:23] LABS: ALBUMIN 2.8 GM/DL (3.2-5.2); BILIRUBIN,TOTAL 0.3 MG/DL (0.2-1.0); C REACTIVE PROTEIN QUANTITATIV 1.51 MG/DL (0.00-0.30); CALCIUM LEVEL 8.8 MG/DL (8.8-10.2); CHOLESTEROL RISK RATIO 5.928 (<5); CREATININE FOR GFR 1.6 MG/DL (0.70-1.30); GLOMERULAR FILTRATION RATE 46.7 (>49); POTASSIUM SERUM 3.9 MEQ/L (3.5-5.1)
[2019-03-09] MEDS: IPRATROPIUM 0.5MG/ALBUTEROL 2.5MG INH SOL UD 3ML (DUONEB)(J7620) NEB SCH ×3 (07:55→19:53)
[2019-03-09] MEDS: SALMETEROL DISKUS 50MCG INHALER (SEREVENT) INH SCH ×2 (07:55→19:52)
--- NOTE | 2019-03-09 08:54 | CR ---
DATE OF CONSULTATION: 03/08/2019 REFERRING PHYSICIAN: Dr. Banerjee. REASON FOR CONSULT: Medical management. HISTORY OF PRESENT ILLNESS: 63-year-old male presented to [facility] with seizure like activity and weakness on 03/03/2019, was found to be febrile at 102.6 and lactic acid of 4.1, white count of 20. He was subsequently transferred to [facility] for sepsis secondary to urinary tract infection. Patient received vancomycin and Zosyn while awaiting blood cultures. Patient's urine culture was negative. Source of infection was though to be his chronic lower extremity ulcers. Chest x-ray was negative. He was transitioned to IV cefazolin for 4 days and was subsequently discontinued. Dressing changes were made to the lower extremities. His gabapentin was decreased from 800 four times daily to 600 three times daily which improved his upper extremity tremors. Patient was found to have CO2 retention with level of 71. Pulmonary function tests (PFT)s were performed but were suboptimal with recommendations to followup at [facility] once he is discharged from the hospital. Patient developed atrial fibrillation and was started on Eliquis. His rate was controlled with Lopressor but he remained deconditioned and was subsequently transferred to [facility] unit. Per the patient, he was due to have skin grafting to be done by plastic surgeon Dr. Ortega at [facility] at some point next week. He had previously been evaluated for arterial ulcers and was seen at the wound center 02/01/[address] Powers. PAST MEDICAL HISTORY: Type 2 diabetes with peripheral neuropathy. Hyperlipidemia. Peripheral arterial and venous insufficiency with chronic lower extremity ulcerations. Urinary tract infection. Sepsis secondary to urinary tract infection. Coronary artery disease with stent placement 09/20/2001 at [facility]. Left foot osteomyelitis with gangrene positive for Methicillin-resistant staphylococcus aureus (MRSA) and E. Coli. Hypertensive heart disease. Tobacco abuse. Glaucoma. Osteomyelitis of the left great toe status post amputation 09/2012. Completed doxycycline for 10 days until 10/08/2012. Obstructive sleep apnea. Osteoarthritis. Low testosterone. Degenerative hip disease. Dermatitis. Basal cell carcinoma, upper back melanoma, left eye lid. Charcot foot of the left foot. Pancreatitis in 2008. Cellulitis of the left lower extremity 2015. Blood transfusion 01/2013. ALLERGIES: No known drug allergies. PAST SURGICAL HISTORY: Stents placed in the right common and external iliac, left common and external iliac 02/09/2016. Amputation of the left great toe 10/02/2012. Melanoma left eye lid 1998. Right shoulder rotator cuff repair 1998. Cardiac catheterization with stent placement 2001. C6 corpectomy and fusion C5-C6 with fibular strut graft and anterior cervical plate 2002. Left foot digit 4 and 5 amputation of the left foot 2010. Great toe amputation 09/2012. Left foot bone debridement 12/19/2012. HOSPITAL MEDICATIONS: - albuterol inhaled two puffs every 6 hours as needed - amlodipine 10 mg daily - apixaban 5 mg twice daily - aspirin 81 mg daily - Colace 100 mg twice daily - duloxetine 60 mg daily - Fentanyl patch 50 mcg every 72 hours - fish oil/[place] 3/fatty acids 1 gram daily - gabapentin 600 mg three times daily - glipizide 10 mg daily - Humulin insulin 66 units subcutaneous daily every morning, 74 units at dinner - Humulin R 36 units at breakfast, 38 units at lunch and dinner - latanoprost 0.005% one drop both eyes daily at bedtime - lisinopril 20 mg daily - magnesium gluconate 500 mg daily - metformin 1 gram by mouth twice daily - Lopressor 25 mg twice daily - multivitamin one tablet daily - Niacor 500 mg two tablets daily - oxycodone 1-2 every 6 hours as needed, maximum daily dose of 6 tablets - Pravachol 20 mg daily - salmeterol 50 mcg per dose inhaled one puff twice daily SOCIAL HISTORY: Patient is disabled, 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 Smoked 1-1/2 packs of cigarettes since the age of 15. Had quit twice before for about 1-2 years, recently been smoking 6-8 cigarettes prior to hospitalization and none during his hospital stay. Patient denies any active alcohol use. Uses a cane at all times. Lives with his family and his spouse at home. He owns his own home. He denies any recreational drug use. FAMILY HISTORY: Father age 64 with aneurysm and diabetes. Mother alive age 84, had a hip replacement. REVIEW OF SYSTEMS: 12 point system negative aside from pain of 8/10 in bilateral lower extremities with dressing changes. Paresthesias of bilateral hands which is chronic from his diabetic neuropathy. PHYSICAL EXAMINATION: Vital signs were not available on the day of admission. Vitals at [facility] were temperature 97.7, pulse 91, respiratory rate 18, blood pressure 135/68, 110 kg, BMI of 33.8. 97% on room air. Generally, patient is awake, alert, oriented to person, place and time. His face is symmetric, disheveled with poor dentition. No slurring of speech or use of respiratory accessory muscles. Able to speak in full sentences. Anicteric, no jaundice. Pupils are round and reactive. Extraocular movement are intact. No jugular venous distention or thyromegaly. No cervical lymphadenopathy. Lungs are clear to auscultation. No wheezing, rales or rhonchi. Heart S1, S2, irregularly irregular. No murmurs, rubs or gallops. Abdomen is soft, nontender, nondistended. Positive bowel sounds times four quadrants. No guarding. Reducible hernia is present. Extremities: Left first toe has a less than 1 cm ulcer that is dry. Left lower extremity leg has erythema. First toe amputation. Full thickness ulcers with some scant bleeding. Left anterior leg ulcer measures 5 x 1 x 1 cm with some serous and slightly bloody drainage. Left posterior leg on the lateral aspect has some erythema and slight crusting measuring 15 x 5 x 1 cm. The left heel has dried ulcer posteriorly. The right ankle dorsally has some erythema. No open lesions. LABORATORY DATA: Microbiology pending. ASSESSMENT AND PLAN: This is a 63-year-old male transferred from [facility] where he was admitted for sepsis secondary to urinary tract infection initially, was found to have chronic venous and arterial ulcer infection and treated with vancomycin initially and Zosyn and changed to cefazolin completed 4 days and transferred to [facility] unit for physical therapy and rehabilitation. Active issues are: 1. Peripheral arterial and venous insufficiency with ulcerations in bilateral lower extremities left greater than right. Patient was treated with vancomycin and Zosyn and transitioned to cefazolin completed 4 days of antibiotics and subsequently discontinued at [facility]. Patient is continued on dressing changes per [facility]'s recommendations. Wound care will be consulted and patient will be kept on as needed pain medications every 6 hours with oxycodone. 2. Diabetic neuropathy with persistent paresthesias in bilateral hands. He will be continued on his gabapentin 600 mg three times daily which had been decreased from 800 mg four times daily which he takes from home. 3. Atrial fibrillation with is new onset, currently on Eliquis and rate controlled with metoprolol. We will continue all these medications during this admission. 4. Hypertensive heart disease, continue on Norvasc 10 mg daily. 5. Type 2 diabetes, insulin dependent. He is continued on insulin with 40 units subcutaneous, Levemir twice daily and insulin sliding scale with fingersticks per protocol for coverage. 6. Glaucoma. Continue Xalatan one drop both eyes daily at bedtime. 7. Hypertensive heart disease. He will be continued on Norvasc and metoprolol as well as lisinopril. 8. History of coronary artery disease (CAD) and stenting, continue on aspirin, lisinopril, metoprolol, Niacin and pravastatin. 9. History of hernia. Continue on Protonix. 10. Dyslipidemia. Continue on Pravachol. 11. Active smoking. Tobacco cessation counseling has been provided. 10 minute conversation. Patient does not want any nicotine replacement therapy at this time. 12. Depression, continue on Cymbalta. 13. Peripheral neuropathy, recently decreased to gabapentin 600 mg three times daily. 14. Probable obstructive sleep apnea. Outpatient referral for a formal sleep study. 15. Recent diagnosis of sepsis, currently resolved. [facility]
[2019-03-09] MEDS: HumaLOG INSULIN (NovoLOG) PER UNIT SC SCH ×4 (09:14→22:17)
[2019-03-09] MEDS: LISINOPRIL 20 MG TAB PO SCH (09:15)
[2019-03-09] MEDS: LEVEMIR (INSULIN DETEMIR) 1 UNITS/0.01ML SC SCH ×2 (09:15→22:18)
[2019-03-09] MEDS: PRAVASTATIN 20 MG TAB PO SCH (09:15)
[2019-03-09] MEDS: PANTOPRAZOLE 40MG TAB (PROTONIX) PO SCH (09:15)
[2019-03-09] MEDS: ASPIRIN 81 MG CHEW TABLET PO SCH (09:15)
[2019-03-09] MEDS: APIXABAN 5 MG TAB (ELIQUIS) PO SCH ×2 (09:15→22:14)
[2019-03-09] MEDS: MAGNESIUM OXIDE 400 MG TAB (MAG-OX) PO SCH (09:16)
[2019-03-09] MEDS: DULoxetine 30 MG CAP (CYMBALTA) PO SCH (09:16)
[2019-03-09] MEDS: GABAPENTIN 300 MG CAP PO SCH ×3 (09:16→22:14)
[2019-03-09] MEDS: amLODIPine 10 MG TAB PO SCH (09:16)
[2019-03-09] MEDS: DOCUSATE SODIUM 100 MG CAP PO SCH ×2 (09:16→22:14)
[2019-03-09] MEDS: METOPROLOL TART 25 MG TABLET PO SCH ×2 (09:17→21:00)
--- NOTE | 2019-03-09 11:19 | IPNPDOC ---
Date Seen The patient was seen on 03/09/19. Progress Note SUBJECTIVE: Pt c/o pain in the bilateral LE 8/10 when he ambulates, improved with pain meds to 3/10 scale. He denies any recurrent bleeding. slept well, and had a good appetite for dinner and breakfast without nausea, vomiting, abd pain. no fever or chills overnight. [facility] and has more pain in his legs. "I may have overdone it." Vital signs PLS SEE BELOW Generally, patient is awake, alert, oriented to person, place and time. His face is symmetric, disheveled with poor dentition. No slurring of speech or use of respiratory accessory muscles. Able to speak in full sentences. Anicteric, no jaundice. Pupils are round and reactive. Extraocular movement are intact. No jugular venous distention or thyromegaly. No cervical lymphadenopathy. Lungs are clear to auscultation. No wheezing, rales or rhonchi. Heart S1, S2, irregularly irregular. No murmurs, rubs or gallops. Abdomen is soft, nontender, nondistended. Positive bowel sounds times four quadrants. No guarding. Reducible hernia is present. Extremities: Left first toe has a less than 1 cm ulcer that is dry. Left lower extremity leg has erythema. First toe amputation. Full thickness ulcers Left anterior leg ulcer measures 5 x 1 x 1 cm with some serous drainage Left posterior leg on the lateral aspect has some erythema and slight crusting measuring 15 x 5 x 1 cm. The left heel has dried ulcer posteriorly. The right ankle dorsally has some erythema. No open lesions. LABORATORY DATA: Microbiology pending. ASSESSMENT AND PLAN: This is a 63-year-old male transferred from [facility] where he was admitted for sepsis secondary to urinary tract infection initially, was found to have chronic venous and arterial ulcer infection and treated with vancomycin initially and Zosyn and changed to cefazolin completed 4 days and transferred to [facility] Acute Rehabilitation unit for physical therapy and rehabilitation. Active issues are: 1. Peripheral arterial and venous insufficiency with ulcerations in bilateral lower extremities left greater than right. Patient was treated with vancomycin and Zosyn and transitioned to cefazolin completed 4 days of antibiotics and subsequently discontinued at [facility]. Patient is continued on dressing changes per [facility]'s recommendations. Wound care will be consulted and patient will be kept on as needed pain medications every 6 hours with oxycodone. 2. Diabetic neuropathy with persistent paresthesias in bilateral hands. He will be continued on his gabapentin 600 mg three times daily which had been decreased from 800 mg four times daily which he takes from home. 3. Atrial fibrillation with is new onset, currently on Eliquis and rate controlled with metoprolol. We will continue all these medications during this admission. 4. Hypertensive heart disease, continue on Norvasc 10 mg daily. 5. Type 2 diabetes, insulin dependent. He is continued on insulin with 40 units subcutaneous, Levemir twice daily and insulin sliding scale with fingersticks per protocol for coverage. 6. Glaucoma. Continue Xalatan one drop both eyes daily at bedtime. 7. Hypertensive heart disease. He will be continued on Norvasc and metoprolol as well as lisinopril. 8. History of coronary artery disease (CAD) and stenting, continue on aspirin, lisinopril, metoprolol, Niacin and pravastatin. 9. History of hernia. Continue on Protonix. 10. Dyslipidemia. Continue on Pravachol. 11. Active smoking. Tobacco cessation counseling has been provided. 10 minute conversation. Patient does not want any nicotine replacement therapy at this time. 12. Depression, continue on Cymbalta. 13. Peripheral neuropathy, recently decreased to gabapentin 600 mg three times daily. 14. Probable obstructive sleep apnea. Outpatient referral for a formal sleep study. 15. Recent diagnosis of sepsis, currently resolved. VS, I&O, [facility] Vital Signs/I&O Vital Signs Date Time Temp Pulse Resp B/P (MAP) Pulse Ox O2 Delivery O2 Flow Rate FiO2 03/09/19 09:16 98 129/66 03/09/19 07:37 18 03/09/19 05:42 97.0 98 I&O- Last 24 Hours up to 6 AM 03/09/19 06:00 Intake Total 480 ml Balance 480 ml Laboratory Data 24H LABS Laboratory Tests 2 03/08/19 17:38: Bedside Glucose (Misc Panel) 276H 03/08/19 19:45: Bedside Glucose (Misc Panel) 311H 03/09/19 06:13: Immature Granulocyte % (Auto) 1.2, White Blood Count 13.2H, Red Blood Count 5.87, Hemoglobin 16.0, Hematocrit 51.1, Mean Corpuscular Volume 87.1, Mean Corpuscular Hemoglobin 27.3, Mean Corpuscular Hemoglobin Concent 31.3L, Red Cell Distribution Width 16.8H, Platelet Count 208, Neutrophils (%) (Auto) 70.3H, Lymphocytes (%) (Auto) 17.3L, Monocytes (%) (Auto) 9.0H, Eosinophils (%) (Auto) 1.4, Basophils (%) (Auto) 0.8, Neutrophils # (Auto) 9.3H, Lymphocytes # (Auto) 2.3, Monocytes # (Auto) 1.2H, Eosinophils # (Auto) 0.2, Basophils # (Auto) 0.1, Nucleated Red Blood Cells % (auto) 0.0, Erythrocyte Sedimentation Rate 2, Anion Gap 3L, Glomerular Filtration Rate 46.7L, Estimated Mean Plasma Glucose 180H, Hemoglobin A1c 7.9, Blood Urea Nitrogen 46H, Creatinine 1.60H, Sodium Level 137, Potassium Level 3.9, Chloride Level 104, Carbon Dioxide Level 30, Calcium Level 8.8, Aspartate Amino Transf (AST/SGOT) 13, Alanine Aminotransferase (ALT/SGPT) 25, Alkaline Phosphatase 64, Total Bilirubin 0.3, Triglycerides Level 249H, LDL Cholesterol 88, Total Protein 7.0, Albumin 2.8L, C-Reactive Protein, Quantita tive 1.51H, Albumin/Globulin Ratio 0.67L, Total Cholesterol 166, Non-HDL Cholesterol (LDL + VLDL) 138, Total HDL Cholesterol 28L, Cholesterol/HDL Ratio 5.928H CBC/BMP Laboratory Tests 03/09/19 06:13 Red Blood Count 5.87, Mean Corpuscular Volume 87.1, Mean Corpuscular Hemoglobin 27.3, Mean Corpuscular Hemoglobin Concent 31.3 L, Red Cell Distribution Width 16.8 H, Neutrophils (%) (Auto) 70.3 H, Lymphocytes (%) (Auto) 17.3 L, Monocytes (%) (Auto) 9.0 H, Eosinophils (%) (Auto) 1.4, Basophils (%) (Auto) 0.8, Neutrophils # (Auto) 9.3 H, Lymphocytes # (Auto) 2.3, Monocytes # (Auto) 1.2 H, Eosinophils # (Auto) 0.2, Basophils # (Auto) 0.1, Calcium Level 8.8, Aspartate Amino Transf (AST/SGOT) 13, Alanine Aminotransferase (ALT/SGPT) 25, Alkaline Phosphatase 64, Total Bilirubin 0.3, Triglycerides Level 249 H, LDL Cholesterol 88, Total Protein 7.0, Albumin 2.8 L ARABELLA MCCORD MD Mar 09, 2019 11:19
[2019-03-09 14:00] VITALS: BP 102/55
[2019-03-09 20:00] VITALS: BP 99/56
[2019-03-09] MEDS: NIACIN 250MG EXTENDED RELEASE CAPSULE PO SCH (22:12)
[2019-03-09] MEDS: SENNA 8.6 MG TAB (SENOKOT) PO SCH (22:14)
[2019-03-09] MEDS: LATANOPROST 0.005% OPHTH SOLN 2.5 ML OU SCH (22:17)
[2019-03-10] MEDS: oxyCODONE 5MG TAB PO PRN ×3 (05:48→22:19)
[2019-03-10 06:00] VITALS: BP 115/64
[2019-03-10 06:41] LABS: BASO # 0.1 10^3/uL (0.0-0.2); BASO % 0.8 % (0.0-1.0); EOS # 0.3 10^3/uL (0.0-0.50); EOS % 2.9 % (0.0-3.0); HEMATOCRIT 46.9 % (42.0-52.0); HEMOGLOBIN 14.6 g/dl (13.5-17.5); LYMPH # 2.3 10^3/uL (1.5-4.5); LYMPH % 19.2 % (24.0-44.0); MEAN CORPUSCULAR HEMOGLOBIN 27.3 pg (27.0-33.0); MEAN CORPUSCULAR HGB CONC 31.1 g/dl (32.0-36.5); MEAN CORPUSCULAR VOLUME 87.7 fl (80.0-96.0); MONO # 1.2 10^3/uL (0.0-0.8); MONO % 9.8 % (0.0-5.0); NEUTROPHILS # 7.9 10^3/uL (1.8-7.7); NEUTROPHILS % 66.2 % (36.0-66.0); PLATELET COUNT, AUTOMATED 185 10^3/uL (150-450); RED BLOOD COUNT 5.35 10^6/uL (4.30-6.10); WHITE BLOOD COUNT 11.9 10^3/uL (4.0-10.0)
[2019-03-10] MEDS: IPRATROPIUM 0.5MG/ALBUTEROL 2.5MG INH SOL UD 3ML (DUONEB)(J7620) NEB SCH ×3 (07:41→20:26)
[2019-03-10] MEDS: SALMETEROL DISKUS 50MCG INHALER (SEREVENT) INH SCH ×2 (07:41→20:26)
[2019-03-10 08:03] LABS: CALCIUM LEVEL 8.5 MG/DL (8.8-10.2); CREATININE FOR GFR 1.75 MG/DL (0.70-1.30); GLOMERULAR FILTRATION RATE 42.1 (>49); POTASSIUM SERUM 4.2 MEQ/L (3.5-5.1)
[2019-03-10 08:26] LABS: HEMOGLOBIN A1c 8.3 %
[2019-03-10] MEDS: HumaLOG INSULIN (NovoLOG) PER UNIT SC SCH ×4 (08:59→22:21)
[2019-03-10] MEDS: LEVEMIR (INSULIN DETEMIR) 1 UNITS/0.01ML SC SCH ×2 (08:59→22:21)
[2019-03-10] MEDS: LISINOPRIL 20 MG TAB PO SCH (08:59)
[2019-03-10] MEDS: GABAPENTIN 300 MG CAP PO SCH ×3 (09:00→22:17)
[2019-03-10] MEDS: DULoxetine 30 MG CAP (CYMBALTA) PO SCH (09:00)
[2019-03-10] MEDS: amLODIPine 10 MG TAB PO SCH (09:00)
[2019-03-10] MEDS: PANTOPRAZOLE 40MG TAB (PROTONIX) PO SCH (09:01)
[2019-03-10] MEDS: MAGNESIUM OXIDE 400 MG TAB (MAG-OX) PO SCH (09:02)
[2019-03-10] MEDS: DOCUSATE SODIUM 100 MG CAP PO SCH ×2 (09:02→22:17)
[2019-03-10] MEDS: ASPIRIN 81 MG CHEW TABLET PO SCH (09:02)
[2019-03-10] MEDS: PRAVASTATIN 20 MG TAB PO SCH (09:02)
[2019-03-10] MEDS: APIXABAN 5 MG TAB (ELIQUIS) PO SCH ×2 (09:02→22:17)
[2019-03-10] MEDS: METOPROLOL TART 25 MG TABLET PO SCH ×2 (09:03→22:20)
[2019-03-10 14:00] VITALS: BP 118/56
[2019-03-10] MEDS: fentaNYL 50 MCG/HR PATCH TOP SCH (17:38)
[2019-03-10] MEDS: FENTANYL REMOVAL DOCUMENTATION MISC XX SCH (17:50)
[2019-03-10 20:00] VITALS: BP 125/66
[2019-03-10] MEDS: NIACIN 250MG EXTENDED RELEASE CAPSULE PO SCH (22:18)
[2019-03-10] MEDS: SENNA 8.6 MG TAB (SENOKOT) PO SCH (22:19)
[2019-03-10] MEDS: LATANOPROST 0.005% OPHTH SOLN 2.5 ML OU SCH (22:21)
[2019-03-11 06:00] VITALS: BP 144/72
[2019-03-11] MEDS: IPRATROPIUM 0.5MG/ALBUTEROL 2.5MG INH SOL UD 3ML (DUONEB)(J7620) NEB SCH ×3 (08:00→20:00)
[2019-03-11] MEDS: SALMETEROL DISKUS 50MCG INHALER (SEREVENT) INH SCH ×2 (08:19→21:51)
[2019-03-11] MEDS: DOCUSATE SODIUM 100 MG CAP PO SCH ×2 (09:00→21:00)
[2019-03-11] MEDS: APIXABAN 5 MG TAB (ELIQUIS) PO SCH ×2 (09:07→22:09)
[2019-03-11] MEDS: PANTOPRAZOLE 40MG TAB (PROTONIX) PO SCH (09:07)
[2019-03-11] MEDS: ASPIRIN 81 MG CHEW TABLET PO SCH (09:07)
[2019-03-11] MEDS: PRAVASTATIN 20 MG TAB PO SCH (09:07)
[2019-03-11] MEDS: MAGNESIUM OXIDE 400 MG TAB (MAG-OX) PO SCH (09:07)
[2019-03-11] MEDS: amLODIPine 10 MG TAB PO SCH (09:08)
[2019-03-11] MEDS: DULoxetine 30 MG CAP (CYMBALTA) PO SCH (09:08)
[2019-03-11] MEDS: GABAPENTIN 300 MG CAP PO SCH ×3 (09:08→22:09)
[2019-03-11] MEDS: LISINOPRIL 20 MG TAB PO SCH (09:08)
[2019-03-11] MEDS: HumaLOG INSULIN (NovoLOG) PER UNIT SC SCH ×4 (09:09→22:10)
[2019-03-11] MEDS: METOPROLOL TART 25 MG TABLET PO SCH ×2 (09:09→22:09)
[2019-03-11] MEDS: LEVEMIR (INSULIN DETEMIR) 1 UNITS/0.01ML SC SCH ×2 (09:09→22:11)
[2019-03-11] MEDS: oxyCODONE 5MG TAB PO PRN ×3 (09:20→22:10)
[2019-03-11 14:00] VITALS: BP 121/61
--- NOTE | 2019-03-11 17:52 | IPNPDOC ---
Date Seen The patient was seen on 03/11/19. Progress Note SUBJECTIVE: lying on his right side with half his gown off. "I just want to pee standing up. " Pt waiting for assistance to stand up at the bedside to urinate. "I can't do it in bed." No other c/o sob, cp, dizziness, lightheadedness. Vital signs PLS SEE BELOW Generally, patient is awake, alert, oriented to person, place and time. His face is symmetric, disheveled with poor dentition. No slurring of speech or use of respiratory accessory muscles. Able to speak in full sentences. Anicteric, no jaundice. Pupils are round and reactive. Extraocular movement are intact. No jugular venous distention or thyromegaly. No cervical lymphadenopathy. Lungs are clear to auscultation. No wheezing, rales or rhonchi. Heart S1, S2, irregularly irregular. No murmurs, rubs or gallops. Abdomen is soft, nontender, nondistended. Positive bowel sounds times four quadrants. No guarding. Reducible hernia is present. Extremities: Left first toe has a less than 1 cm ulcer that is dry. Left lower extremity leg has erythema. First toe amputation. Full thickness ulcers Left anterior leg ulcer measures 5 x 1 x 1 cm with some serous drainage Left posterior leg on the lateral aspect has some erythema and slight crusting measuring 15 x 5 x 1 cm. The left heel has dried ulcer posteriorly. The right ankle dorsally has some erythema. No open lesions. LABORATORY DATA: Microbiology pending. ASSESSMENT AND PLAN: This is a 63-year-old male transferred from [facility] where he was admitted for sepsis secondary to urinary tract infection initially, was found to have chronic venous and arterial ulcer infection and treated with vancomycin initially and Zosyn and changed to cefazolin completed 4 days and transferred to [facility] Acute Rehabilitation unit for physical therapy and rehabilitation. Active issues are: 1. Peripheral arterial and venous insufficiency with ulcerations in bilateral lower extremities left greater than right. Patient was treated with vancomycin and Zosyn and transitioned to cefazolin completed 4 days of antibiotics and subsequently discontinued at [facility]. Patient is continued on dressing changes per [facility]'s recommendations. Wound care consulted and patient is on as needed pain medications every 6 hours with oxycodone. 2. Diabetic neuropathy with persistent paresthesias in bilateral hands. He will be continued on his gabapentin 600 mg three times daily which had been decreased from 800 mg four times daily which he takes from home. 3. Atrial fibrillation with is new onset, currently on Eliquis and rate controlled with metoprolol. We will continue all these medications during this admission. 4. Hypertensive heart disease, continue on Norvasc 10 mg daily. 5. Type 2 diabetes, insulin dependent. He is continued on insulin with 40 uni ts subcutaneous, Levemir twice daily and insulin sliding scale with fingersticks per protocol for coverage. 6. Glaucoma. Continue Xalatan one drop both eyes daily at bedtime. 7. Hypertensive heart disease. He will be continued on Norvasc and metoprolol as well as lisinopril. 8. History of coronary artery disease (CAD) and stenting, continue on aspirin, lisinopril, metoprolol, Niacin and pravastatin. 9. History of hernia. Continue on Protonix. 10. Dyslipidemia. Continue on Pravachol. 11. Active smoking. Tobacco cessation counseling has been provided. 10 minute conversation. Patient does not want any nicotine replacement therapy at this time. 12. Depression, continue on Cymbalta. 13. Peripheral neuropathy, recently decreased to gabapentin 600 mg three times daily. 14. Probable obstructive sleep apnea. Outpatient referral for a formal sleep study. 15. Recent diagnosis of sepsis, currently resolved. VS, [facility]O, [facility] Vital Sign[facility]/I&O Vital Signs Date Time Temp Pulse Resp B/P (MAP) Pulse Ox O2 Delivery O2 Flow Rate FiO2 03/11/19 17:44 18 03/11/19 14:00 97.4 86 121/61 (81) 97 I&O- Last 24 Hours up to 6 AM 03/11/19 06:00 Intake Total 1800 ml Output Total 2500 ml Balance -700 ml Laboratory Data 24H LABS Laboratory Tests 2 03/10/19 20:15: Bedside Glucose (Misc Panel) 298H 03/11/19 05:59: Bedside Glucose (Misc Panel) 297H 03/11/19 12:21: Bedside Glucose (Misc Panel) 395H 03/11/19 17:04: Bedside Glucose (Misc Panel) 290H ARABELLA MCCORD MD Mar 11, 2019 17:52
[2019-03-11] MEDS: SENNA 8.6 MG TAB (SENOKOT) PO SCH (21:00)
[2019-03-11 22:00] VITALS: BP 126/80
[2019-03-11] MEDS: NIACIN 250MG EXTENDED RELEASE CAPSULE PO SCH (22:08)
[2019-03-11] MEDS: LATANOPROST 0.005% OPHTH SOLN 2.5 ML OU SCH (22:14)
[2019-03-12 06:00] VITALS: BP 152/93
[2019-03-12] MEDS: oxyCODONE 5MG TAB PO PRN ×3 (06:55→21:07)
[2019-03-12] MEDS: IPRATROPIUM 0.5MG/ALBUTEROL 2.5MG INH SOL UD 3ML (DUONEB)(J7620) NEB SCH ×3 (07:32→21:39)
[2019-03-12] MEDS: SALMETEROL DISKUS 50MCG INHALER (SEREVENT) INH SCH (07:33)
[2019-03-12] MEDS: HumaLOG INSULIN (NovoLOG) PER UNIT SC SCH ×4 (08:32→21:09)
[2019-03-12] MEDS: ASPIRIN 81 MG CHEW TABLET PO SCH (08:33)
[2019-03-12] MEDS: APIXABAN 5 MG TAB (ELIQUIS) PO SCH ×2 (08:33→21:08)
[2019-03-12] MEDS: LEVEMIR (INSULIN DETEMIR) 1 UNITS/0.01ML SC SCH (08:33)
[2019-03-12] MEDS: MAGNESIUM OXIDE 400 MG TAB (MAG-OX) PO SCH (08:33)
[2019-03-12] MEDS: DULoxetine 30 MG CAP (CYMBALTA) PO SCH (08:33)
[2019-03-12] MEDS: PANTOPRAZOLE 40MG TAB (PROTONIX) PO SCH (08:33)
[2019-03-12] MEDS: GABAPENTIN 300 MG CAP PO SCH ×3 (08:33→21:07)
[2019-03-12] MEDS: PRAVASTATIN 20 MG TAB PO SCH (08:34)
[2019-03-12] MEDS: LISINOPRIL 20 MG TAB PO SCH (08:34)
[2019-03-12] MEDS: METOPROLOL TART 25 MG TABLET PO SCH ×2 (08:34→21:08)
[2019-03-12] MEDS: amLODIPine 10 MG TAB PO SCH (08:34)
[2019-03-12] MEDS: DOCUSATE SODIUM 100 MG CAP PO SCH ×2 (08:35→21:00)
[2019-03-12 14:00] VITALS: BP 111/63
[2019-03-12 20:00] VITALS: BP 115/76
[2019-03-12] MEDS: SENNA 8.6 MG TAB (SENOKOT) PO SCH (21:00)
[2019-03-12] MEDS ORDERED: LEVEMIR (INSULIN DETEMIR) 1 UNITS/0.01ML SC SCH (21:00)
[2019-03-12] MEDS: NIACIN 250MG EXTENDED RELEASE CAPSULE PO SCH (21:07)
[2019-03-12] MEDS: LATANOPROST 0.005% OPHTH SOLN 2.5 ML OU SCH (21:07)
[2019-03-13 06:00] VITALS: BP 136/72
[2019-03-13] MEDS: SALMETEROL DISKUS 50MCG INHALER (SEREVENT) INH SCH ×2 (07:27→21:00)
[2019-03-13] MEDS: IPRATROPIUM 0.5MG/ALBUTEROL 2.5MG INH SOL UD 3ML (DUONEB)(J7620) NEB SCH ×3 (07:27→20:00)
[2019-03-13] MEDS: oxyCODONE 5MG TAB PO PRN ×3 (07:54→22:18)
[2019-03-13] MEDS: HumaLOG INSULIN (NovoLOG) PER UNIT SC SCH ×6 (08:47→22:19)
[2019-03-13] MEDS: PRAVASTATIN 20 MG TAB PO SCH (08:47)
[2019-03-13] MEDS: LISINOPRIL 20 MG TAB PO SCH (08:48)
[2019-03-13] MEDS: DOCUSATE SODIUM 100 MG CAP PO SCH ×2 (08:48→22:18)
[2019-03-13] MEDS: amLODIPine 10 MG TAB PO SCH (08:48)
[2019-03-13] MEDS: METOPROLOL TART 25 MG TABLET PO SCH ×3 (08:48→22:18)
[2019-03-13] MEDS: DULoxetine 30 MG CAP (CYMBALTA) PO SCH (08:48)
[2019-03-13] MEDS: APIXABAN 5 MG TAB (ELIQUIS) PO SCH ×2 (08:48→22:18)
[2019-03-13] MEDS: PANTOPRAZOLE 40MG TAB (PROTONIX) PO SCH (08:48)
[2019-03-13] MEDS: GABAPENTIN 300 MG CAP PO SCH ×3 (08:48→22:18)
[2019-03-13] MEDS: MAGNESIUM OXIDE 400 MG TAB (MAG-OX) PO SCH (08:48)
[2019-03-13] MEDS: ASPIRIN 81 MG CHEW TABLET PO SCH (08:49)
--- NOTE | 2019-03-13 10:54 | CR ---
DATE OF CONSULTATION: 03/12/2019 This consult was requested by Dr. Boswell. This is regarding left lower extremity wound care. Recent admission for this 63-year-old neuropathic diabetic male with associated peripheral vascular disease for lightheadedness and difficulty in breathing. The patient's symptoms have resolved and he is now on rehab physical therapy status, and I have been asked to comment on wound care involving his left lower extremity. The patient has had bilateral lower extremity angioplasty. His right lower extremity wounds have healed except for a small punctate wound on the plantar surface of his right great toe. This measures 0.4 x 0.3 with a wound depth of 0.2. There is dry callus present and no drainage. No signs of ischemia or cellulitis. The left lower extremity shows a distal wound involving the lateral supramalleolar aspect, which extends to the posterior distal calf. This wound measures 20.5 cm x 7.5 cm with a wound depth of 0.4 cm. This wound base shows a 100% granulation tissue. The drainage is moderate serosanguineous without odor. No deep structures are seen. Wound edges are open and the periwound shows dry, nonerythematous skin. TREATMENT: The left lower extremity wound should be cleaned with Vashe wound cleanser for 10 minutes, then Maxorb should be applied; this an alginate, and cover it with an Optilock dressing. A Tubigrip stocking should then be utilized to secure the dressings. This should be changed and redressed on a Monday, Monday, Monday basis. In terms of the right great toe, this area should be covered with a DuoDerm and a PolyMem digit dressing. A small foam dressing could be substitute for the PolyMem. Physical therapy: The patient can be on weightbearing status. The patient's dietary status is good, and he has not been smoking since he has been in the hospital. He has also been in bed the majority of the time and this reflects a significant improvement in the lower extremity edema. Prior to patient's discharge, please call the wound care center so that followup visits can be arranged as he has been a patient with us for quite some time. Patient has seen Dr. Ortega our plastic surgeon in the past and at present, he is an excellent candidate for skin grafting as the left lower extremity wounds appear clean and in a good position for split thickness skin grafting. MEEK
--- NOTE | 2019-03-13 12:38 | IPNPDOC ---
PM&R Progress Note DATE OF SERVICE: Mar 12, 2019 [employer] Operator Progress Note Subjective: Patient stating he feels well and that it is not too painful to put weight through his left leg. He feels he has good standing tolerance on his right leg. REVIEW OF SYSTEMS: The following is a completed review of systems and has been reviewed. Review of systems otherwise unremarkable. PAIN: Patient self reports no pain EYES: No recent vision changes EARS, NOSE, & THROAT: No throat pain, or dysphagia, or rhinorrhea CARDIOVASCULAR: Denies chest pain or palpitations PULMONARY: Denies shortness of breath GASTROINTESTINAL: Denies constipation/diarrhea GENITOURINARY: no dysuria MUSCULOSKELETAL: cervical stenosis NEUROLOGICAL: peripheral polyneuropathy SKIN: left calf and right D1 toe ulcer PSYCHIATRIC: Unremarkable All other review of systems found to be negative. PHYSICAL EXAMINATION: VITAL SIGNS: Please see below. GENERAL: Pleasant and cooperative. No acute distress. HEENT: PERRL. Extraocular movements intact. Clear conjunctiva CARDIOVASCULAR: Iregular rate and rhythm. No murmurs, rubs, or gallops LUNGS: Clear to auscultation bilaterally. No wheezes. No rhonchi ABDOMEN: Soft, nontender, nondistended. Positive bowel sounds. Normal active bowel sounds NEUROLOGICAL: Alert and oriented times three. Cranial nerves II through XII grossly intact. Sensation diminished bilateral finger tips and bilateral feet and calves EXTREMITIES: 4+\5 strength bilateral upper extremities. 4\5 strength bilateral hip flexion, knee extension, 3+/5 ankle DF and EHL (on the right only) decreased ROM left hip SKIN: left [id number] calf with venous stasis ulcer, less drainage, no foul odor, appears clean right foot D1 ulcer c/d/i ASSESSMENT:63-year-old M with past medical history of CAD, DM, PVD who presents status post sepsis due to left calf venous wounds in setting of worsening peripheral polyneuropathy. PLAN: 1. Rehab- PT strenghthen, stretch, and maintain ROM bilat LE, PWB LLE except for stairs OT- PT strengthen, stretch, and maintain ROM bilat UE, teach ADL management 2. Neuro: peripheral neuropathy secondary to poorly controlled DM and PVD with gait impairment- optimize glucose control 3. CArdio: CAD s/p stents c/u ASA, recently diagnosed Afib started on Eliquis and metoprolol, medicine consulted to assist in overall management -HTN, c/u lisinopril and amlodipine 4. Resp: current smoker, c/u breathing treatments, encourage incentive spirometry 5. Endo: poorly controlled DM, c/u glipizide and increase Insulin Long acting BID, c/u ISS, avoid metformin for elevated creatinine 6. ID: s/p 4 day course of VAnco/Zosyn with negative blood cultures, left calf wound does not appear infected at this time, will monitor for leukocytosis and order ESR/CRP- overall improving, afebrile 7. SKin: right foot first digit PAD ulcer and left calf venous ulcer, tele-wound care consult placed today, recs greatly appreciated, c/u 8. DVT ppx: eliquis 9. GI ppx: protonix 10. Pain: c/u oxycodone, gabapentin, Fentanyl patch and Cymbalta, patient long- term opioid user followed by pain clinic 10. DIspo: 03/26/19 to home, progressing towards goals Allergies Coded Allergies: No Known Drug Allergies (Verified Allergy, Unknown, 01/05/19) Vital Signs Vital Signs Date Time Temp Pulse Resp B/P (MAP) Pulse Ox O2 Delivery O2 Flow Rate FiO2 03/13/19 08:48 87 136/72 03/13/19 08:24 16 03/13/19 06:00 96.8 96 Laboratory Data Labs 24H Laboratory Tests 2 03/12/19 16:46: Bedside Glucose (Misc Panel) 340H 03/12/19 20:35: Bedside Glucose (Misc Panel) 288H 03/13/19 06:26: Bedside Glucose (Misc Panel) 247H 03/13/19 11:56: Bedside Glucose (Misc Panel) 356H Current Medications Current Medications Current Medications Medications (Trade) Dose Ordered Sig/Lexi Route PRN Reason Start Time Stop Time Status Last Admin Dose Admin Acetaminophen (Tylenol Tab) 650 mg Q4HP PRN PO MILD PAIN (PS 1-4) 03/08/19 16:15 Albuterol/ Ipratropium (Duoneb (Ipr 0.5mg/Alb 2.5mg)) 3 ml RTID NEB 03/08/19 20:00 03/12/19 21:39 Amlodipine Besylate (Norvasc) 10 mg DAILY PO 03/09/19 09:00 03/13/19 08:48 Apixaban (Eliquis) 5 mg BID PO 03/08/19 21:00 03/13/19 08:48 Aspirin (Aspirin Chewable) 81 mg DAILY PO 03/09/19 09:00 03/13/19 08:49 Bisacodyl (Dulcolax Suppository) 10 mg DAILYPRN PRN ND CONSTIPATION 03/08/19 16:15 Dextrose (Dextrose 50%) 25 ml ASDIRECTED PRN IV SEE LABEL COMMENTS 03/08/19 16:15 Docusate Sodium (Colace) 100 mg BID PO 03/08/19 21:00 03/13/19 08:48 Duloxetine HCl (Cymbalta) 60 mg DAILY PO 03/09/19 09:00 03/13/19 08:48 Fentanyl (Duragesic) 50 mcg Q72H TOP 03/10/19 17:00 03/10/19 17:38 Gabapentin (Neurontin) 600 mg TID PO 03/08/19 21:00 03/13/19 08:48 Glucagon (Glucagon) 1 mg ASDIRECTED PRN SC SEE LABEL COMMENTS 03/08/19 16:15 Glucose (Glucose) 16 GM ASDIRECTED PRN PO SEE LABEL COMMENTS 03/08/19 16:15 Home Med (Med Rec Complete!) ASDIRECTED XX 03/08/19 18:00 03/08/19 18:09 DC Insulin Detemir (Levemir Insulin) 40 units BID SC 03/08/19 21:00 03/09/19 13:58 DC 03/09/19 09:15 Insulin Detemir (Levemir Insulin) 45 units BID SC 03/09/19 21:00 03/12/19 14:48 DC 03/12/19 08:33 Insulin Detemir (Levemir Insulin) 48 units BID SC 03/12/19 21:00 03/13/19 08:13 DC 03/12/19 21:08 Insulin Detemir (Levemir Insulin) 50 units BID SC 03/13/19 09:00 Insulin Human Lispro (HumaLOG INSULIN) 4 units AC SC 03/13/19 12:00 Insulin Human Lispro (HumaLOG INSULIN) SEE PROTOCOL TABLE AC SC 03/08/19 17:30 03/13/19 08:47 Insulin Human Lispro (HumaLOG INSULIN) SEE PROTOCOL TABLE QHS SC 03/08/19 21:00 03/12/19 21:09 Latanoprost (Xalatan 0.005% Op Soln) 1 drop QHS OU 03/08/19 21:00 03/12/19 21:07 Lisinopril (Prinivil) 20 mg DAILY PO 03/09/19 09:00 03/13/19 08:48 Magnesium Hydroxide (Milk Of Magnesia) 30 ml DAILYPRN PRN PO CONSTIPATION 03/08/19 16:15 Magnesium Oxide (Mag-Ox) 400 mg DAILY PO 03/09/19 09:00 03/13/19 08:48 Metoprolol Tartrate (Lopressor) 25 mg BID PO 03/08/19 21:00 03/13/19 08:48 Niacin (Niacin Er) 500 mg QPM PO 03/08/19 21:00 03/12/19 21:07 Nicotine (Nicorette) 2 mg Q2HP PRN PO NICOTINE WITHDRAWAL 03/08/19 18:30 Non-Formulary Medication ( See Comment Field Below ) SEE COMMENTS SECTION ASDIRECTED XX 03/10/19 14:00 03/10/19 17:50 Oxycodone HCl (Roxicodone, Oxyir) 10 mg Q4HP PRN PO SEVERE PAIN (PS 8-10) 03/08/19 16:15 03/13/19 07:54 Pantoprazole Sodium (Protonix) 40 mg DAILY PO 03/09/19 09:00 03/13/19 08:48 Pravastatin Sodium (Pravachol) 20 mg DAILY PO 03/09/19 09:00 03/13/19 08:47 Salmeterol Xinafoate (Serevent Diskus) 1 puff BID INH 03/08/19 21:00 03/13/19 07:27 Senna (Senokot) 1 tab QHS PO 03/08/19 21:00 03/10/19 22:19 ANNETTE PLAZA MD Mar 13, 2019 12:38
--- NOTE | 2019-03-13 12:39 | IPNPDOC ---
PM&R Progress Note DATE OF SERVICE: Mar 13, 2019 International Accounting Manager Progress Note Subjective: Patient seen ambulating in the halls, stating he is feeling stronger and eager to go home early next week. He reports he will be more active once he goes home. REVIEW OF SYSTEMS: The following is a completed review of systems and has been reviewed. Review of systems otherwise unremarkable. PAIN: Patient self reports no pain EYES: No recent vision changes EARS, NOSE, & THROAT: No throat pain, or dysphagia, or rhinorrhea CARDIOVASCULAR: Denies chest pain or palpitations PULMONARY: Denies shortness of breath GASTROINTESTINAL: Denies constipation/diarrhea GENITOURINARY: no dysuria MUSCULOSKELETAL: cervical stenosis NEUROLOGICAL: peripheral polyneuropathy SKIN: left calf and right D1 toe ulcer PSYCHIATRIC: Unremarkable All other review of systems found to be negative. PHYSICAL EXAMINATION: VITAL SIGNS: Please see below. GENERAL: Pleasant and cooperative. No acute distress. HEENT: PERRL. Extraocular movements intact. Clear conjunctiva CARDIOVASCULAR: Iregular rate and rhythm. No murmurs, rubs, or gallops LUNGS: Clear to auscultation bilaterally. No wheezes. No rhonchi ABDOMEN: Soft, nontender, nondistended. Positive bowel sounds. Normal active bowel sounds NEUROLOGICAL: Alert and oriented times three. Cranial nerves II through XII grossly intact. Sensation diminished bilateral finger tips and bilateral feet and calves EXTREMITIES: 4+\5 strength bilateral upper extremities. 4\5 strength bilateral hip flexion, knee extension, 3+/5 ankle DF and EHL (on the right only) decreased ROM left hip SKIN: left [id number] calf with venous stasis ulcer, less drainage, no foul odor, appears clean right foot D1 ulcer c/d/i ASSESSMENT:63-year-old M with past medical history of CAD, DM, PVD who presents status post sepsis due to left calf venous wounds in setting of worsening peripheral polyneuropathy. PLAN: 1. Rehab- PT strenghthen, stretch, and maintain ROM bilat LE, PWB LLE except for stairs OT- PT strengthen, stretch, and maintain ROM bilat UE, teach ADL management 2. Neuro: peripheral neuropathy secondary to poorly controlled DM and PVD with gait impairment- optimize glucose control 3. CArdio: CAD s/p stents c/u ASA, recently diagnosed Afib started on Eliquis and metoprolol, medicine consulted to assist in overall management -HTN, c/u lisinopril and amlodipine 4. Resp: current smoker, c/u breathing treatments, encourage incentive spirometry 5. Endo: poorly controlled DM, c/u glipizide and increase Insulin Long acting BID, c/u ISS, avoid metformin for elevated creatinine 6. ID: s/p 4 day course of VAnco/Zosyn with negative blood cultures, left calf wound does not appear infected at this time, will monitor for leukocytosis and order ESR/CRP- overall improving, afebrile 7. SKin: right foot first digit PAD ulcer and left calf venous ulcer, tele-wound care consulted, recs greatly appreciated, c/u 8. DVT ppx: eliquis 9. GI ppx: protonix 10. Pain: c/u oxycodone, gabapentin, Fentanyl patch and Cymbalta, patient long- term opioid user followed by pain clinic 10. DIspo: 03/26/19 to home, progressing towards goals Allergies Coded Allergies: No Known Drug Allergies (Verified Allergy, Unknown, 01/05/19) Vital Signs Vital Signs Date Time Temp Pulse Resp B/P (MAP) Pulse Ox O2 Delivery O2 Flow Rate FiO2 03/13/19 08:48 87 136/72 03/13/19 08:24 16 03/13/19 06:00 96.8 96 Laboratory Data Labs 24H Laboratory Tests 2 03/12/19 16:46: Bedside Glucose (Misc Panel) 340H 03/12/19 20:35: Bedside Glucose (Misc Panel) 288H 03/13/19 06:26: Bedside Glucose (Misc Panel) 247H 03/13/19 11:56: Bedside Glucose (Misc Panel) 356H Current Medications Current Medications Current Medications Medications (Trade) Dose Ordered Sig/Lexi Route PRN Reason Start Time Stop Time Status Last Admin Dose Admin Acetaminophen (Tylenol Tab) 650 mg Q4HP PRN PO MILD PAIN (PS 1-4) 03/08/19 16:15 Albuterol/ Ipratropium (Duoneb (Ipr 0.5mg/Alb 2.5mg)) 3 ml RTID NEB 03/08/19 20:00 03/12/19 21:39 Amlodipine Besylate (Norvasc) 10 mg DAILY PO 03/09/19 09:00 03/13/19 08:48 Apixaban (Eliquis) 5 mg BID PO 03/08/19 21:00 03/13/19 08:48 Aspirin (Aspirin Chewable) 81 mg DAILY PO 03/09/19 09:00 03/13/19 08:49 Bisacodyl (Dulcolax Suppository) 10 mg DAILYPRN PRN MA CONSTIPATION 03/08/19 16:15 Dextrose (Dextrose 50%) 25 ml ASDIRECTED PRN IV SEE LABEL COMMENTS 03/08/19 16:15 Docusate Sodium (Colace) 100 mg BID PO 03/08/19 21:00 03/13/19 08:48 Duloxetine HCl (Cymbalta) 60 mg DAILY PO 03/09/19 09:00 03/13/19 08:48 Fentanyl (Duragesic) 50 mcg Q72H TOP 03/10/19 17:00 03/10/19 17:38 Gabapentin (Neurontin) 600 mg TID PO 03/08/19 21:00 03/13/19 08:48 Glucagon (Glucagon) 1 mg ASDIRECTED PRN SC SEE LABEL COMMENTS 03/08/19 16:15 Glucose (Glucose) 16 GM ASDIRECTED PRN PO SEE LABEL COMMENTS 03/08/19 16:15 Home Med (Med Rec Complete!) ASDIRECTED XX 03/08/19 18:00 03/08/19 18:09 DC Insulin Detemir (Levemir Insulin) 40 units BID SC 03/08/19 21:00 03/09/19 13:58 DC 03/09/19 09:15 Insulin Detemir (Levemir Insulin) 45 units BID SC 03/09/19 21:00 03/12/19 14:48 DC 03/12/19 08:33 Insulin Detemir (Levemir Insulin) 48 units BID SC 03/12/19 21:00 03/13/19 08:13 DC 03/12/19 21:08 Insulin Detemir (Levemir Insulin) 50 units BID SC 03/13/19 09:00 Insulin Human Lispro (HumaLOG INSULIN) 4 units AC SC 03/13/19 12:00 Insulin Human Lispro (HumaLOG INSULIN) SEE PROTOCOL TABLE AC SC 03/08/19 17:30 03/13/19 08:47 Insulin Human Lispro (HumaLOG INSULIN) SEE PROTOCOL TABLE QHS SC 03/08/19 21:00 03/12/19 21:09 Latanoprost (Xalatan 0.005% Op Soln) 1 drop QHS OU 03/08/19 21:00 03/12/19 21:07 Lisinopril (Prinivil) 20 mg DAILY PO 03/09/19 09:00 03/13/19 08:48 Magnesium Hydroxide (Milk Of Magnesia) 30 ml DAILYPRN PRN PO CONSTIPATION 03/08/19 16:15 Magnesium Oxide (Mag-Ox) 400 mg DAILY PO 03/09/19 09:00 03/13/19 08:48 Metoprolol Tartrate (Lopressor) 25 mg BID PO 03/08/19 21:00 03/13/19 08:48 Niacin (Niacin Er) 500 mg QPM PO 03/08/19 21:00 03/12/19 21:07 Nicotine (Nicorette) 2 mg Q2HP PRN PO NICOTINE WITHDRAWAL 03/08/19 18:30 Non-Formulary Medication ( See Comment Field Below ) SEE COMMENTS SECTION ASDIRECTED XX 03/10/19 14:00 03/10/19 17:50 Oxycodone HCl (Roxicodone, Oxyir) 10 mg Q4HP PRN PO SEVERE PAIN (PS 8-10) 03/08/19 16:15 03/13/19 07:54 Pantoprazole Sodium (Protonix) 40 mg DAILY PO 03/09/19 09:00 03/13/19 08:48 Pravastatin Sodium (Pravachol) 20 mg DAILY PO 03/09/19 09:00 03/13/19 08:47 Salmeterol Xinafoate (Serevent Diskus) 1 puff BID INH 03/08/19 21:00 03/13/19 07:27 Senna (Senokot) 1 tab QHS PO 03/08/19 21:00 03/10/19 22:19 ANNETTE PLAZA MD Mar 13, 2019 12:39
[2019-03-13] MEDS: LEVEMIR (INSULIN DETEMIR) 1 UNITS/0.01ML SC SCH ×2 (12:45→22:20)
[2019-03-13 13:07] LABS: BASO # 0.1 10^3/uL (0.0-0.2); EOS # 0.2 10^3/uL (0.0-0.50); EOS % 1.7 % (0.0-3.0); HEMATOCRIT 51.8 % (42.0-52.0); HEMOGLOBIN 15.9 g/dl (13.5-17.5); LYMPH # 1.9 10^3/uL (1.5-4.5); LYMPH % 18.7 % (24.0-44.0); MEAN CORPUSCULAR HGB CONC 30.7 g/dl (32.0-36.5); MEAN CORPUSCULAR VOLUME 87.9 fl (80.0-96.0); MONO # 0.8 10^3/uL (0.0-0.8); MONO % 8.4 % (0.0-5.0); NEUTROPHILS # 6.9 10^3/uL (1.8-7.7); NEUTROPHILS % 69.3 % (36.0-66.0); PLATELET COUNT, AUTOMATED 275 10^3/uL (150-450); RED BLOOD COUNT 5.89 10^6/uL (4.30-6.10)
[2019-03-13 13:41] LABS: BLOOD UREA NITROGEN 36 MG/DL (7-18); CALCIUM LEVEL 9.1 MG/DL (8.8-10.2); CARBON DIOXIDE LEVEL 33 MEQ/L (21-32); CHLORIDE LEVEL 97 MEQ/L (98-107); CREATININE FOR GFR 1.26 MG/DL (0.70-1.30); GLOMERULAR FILTRATION RATE > 60.0 (>49); GLUCOSE, FASTING 347 MG/DL (70-100); POTASSIUM SERUM 6.1 MEQ/L (3.5-5.1); SODIUM LEVEL 134 MEQ/L (136-145)
--- NOTE | 2019-03-13 13:59 | IPNPDOC ---
Date Seen The patient was seen on 03/13/19. Progress Note SUBJECTIVE: still c/o occasional paresthesias and pain in his bilateral hands better when he takes his gabapentin. no recurrent bleeding on his b/l legs. no fever or chills. "I'm alright." denies any new complaints cooperative with physical therapy. Vital signs PLS SEE BELOW Generally, patient is awake, alert, oriented to person, place and time. lying in bed at 45 degrees, completed his breakfast with tray over his bed. His face is symmetric, disheveled with poor dentition. No slurring of speech or use of respiratory accessory muscles. Able to speak in full sentences. Anicteric, no jaundice. Pupils are round and reactive. Extraocular movement are intact. No jugular venous distention or thyromegaly. No cervical lymphadenopathy. Lungs are clear to auscultation. No wheezing, rales or rhonchi. Heart S1, S2, irregularly irregular. No murmurs, rubs or gallops. Abdomen is soft, nontender, nondistended. Positive bowel sounds times four quadrants. No guarding. Reducible hernia is present. Extremities: Left first toe has a less than 1 cm ulcer that is dry. Left lower extremity leg has erythema. First toe amputation. Full thickness ulcers Left anterior leg ulcer measures 5 x 1 x 1 cm with some serous drainage Left posterior leg on the lateral aspect has some erythema and slight crusting measuring 15 x 5 x 1 cm. The left heel has dried ulcer posteriorly. The right ankle dorsally has some erythema. No open lesions. LABORATORY DATA: Microbiology and imaging studies reviewed ASSESSMENT AND PLAN: This is a 63-year-old male transferred from [facility] where he was admitted for sepsis secondary to urinary tract infection initially, was found to have chronic venous and arterial ulcer infection and treated with vancomycin initially and Zosyn and changed to cefazolin completed 4 days and transferred to [facility] for physical therapy and rehabilitation. Active issues are: Peripheral arterial and venous insufficiency with ulcerations in bilateral lower extremities left greater than right, chronic Patient was treated with vancomycin and Zosyn and transitioned to cefazolin completed 4 days of antibiotics and subsequently discontinued at [facility]. Patient is continued on dressing changes per [facility]'s recommendations. Wound care consulted and patient is on as needed pain medications every 6 hours with oxycodone. Diabetic neuropathy with persistent paresthesias in bilateral hands. He will be continued on his gabapentin 600 mg three times daily which had been decreased from 800 mg four times daily which he takes from home. cooperative with physical therapy Atrial fibrillation with is new onset, currently on Eliquis and rate controlled with metoprolol. We will continue all these medications during this admission. Hypertensive heart disease, continue on Norvasc 10 mg daily. Type 2 diabetes, insulin dependent. uncontrolled increased long acting insulin to 50 units bid. kept on consistent carbs diet slide scale with coverage Glaucoma. Continue Xalatan one drop both eyes daily at bedtime. Hypertensive heart disease. He will be continued on Norvasc and metoprolol as well as lisinopril. History of coronary artery disease (CAD) and stenting, continue on aspirin, lisinopril, metoprolol, Niacin and pravastatin. History of hernia. Continue on Protonix. Dyslipidemia. Continue on Pravachol. Active smoking. Tobacco cessation counseling has been provided. 10 minute conversation. Patient does not want any nicotine replacement therapy at this time. Depression, continue on Cymbalta. Probable obstructive sleep apnea. Outpatient referral for a formal sleep study. VS, I&O, 24H, [facility] Vital Signs/I&O Vital Signs Date Time Temp Pulse Resp B/P (MAP) Pulse Ox O2 Delivery O2 Flow Rate FiO2 03/13/19 08:48 87 136/72 03/13/19 08:24 16 03/13/19 06:00 96.8 96 I&O- Last 24 Hours up to 6 AM 03/13/19 06:00 Intake Total 1380 ml Output Total 1950 ml Balance -570 ml Laboratory Data 24H LABS Laboratory Tests 2 03/12/19 16:46: Bedside Glucose (Misc Panel) 340H 03/12/19 20:35: Bedside Glucose (Misc Panel) 288H 03/13/19 06:26: Bedside Glucose (Misc Panel) 247H 03/13/19 11:56: Bedside Glucose (Misc Panel) 356H 03/13/19 12:37: Immature Granulocyte % (Auto) 0.9, White Blood Count 10.0, Red Blood Count 5.89, Hemoglobin 15.9, Hematocrit 51.8, Mean Corpuscular Volume 87.9, Mean Corpuscular Hemoglobin 27.0, Mean Corpuscular Hemoglobin Concent 30.7L, Red Cell Distribution Width 15.6H, Platelet Count 275, Neutrophils (%) (Auto) 69.3H, Lymphocytes (%) (Auto) 18.7L, Monocytes (%) (Auto) 8.4H, Eosinophils (%) (Auto) 1.7, Basophils (%) (Auto) 1.0, Neutrophils # (Auto) 6.9, Lymphocytes # (Auto) 1.9, Monocytes # (Auto) 0.8, Eosinophils # (Auto) 0.2, Basophils # (Auto) 0.1, Nucleated Red Blood Cells % (auto) 0.0, Anion Gap 4L, Glomerular Filtration Rate > 60.0, Blood Urea Nitrogen 36H, Creatinine 1.26, Sodium Level 134L, Potassium Level 6.1*H, Chloride Level 97L, Carbon Dioxide Level 33H, Calcium Level 9.1 CBC/BMP Laboratory Tests 03/13/19 12:37 Red Blood Count 5.89, Mean Corpuscular Volume 87.9, Mean Corpuscular Hemoglobin 27.0, Mean Corpuscular Hemoglobin Concent 30.7 L, Red Cell Distribution Width 15.6 H, Neutrophils (%) (Auto) 69.3 H, Lymphocytes (%) (Auto) 18.7 L, Monocytes (%) (Auto) 8.4 H, Eosinophils (%) (Auto) 1.7, Basophils (%) (Auto) 1.0, Neutrophils # (Auto) 6.9, Lymphocytes # (Auto) 1.9, Monocytes # (Auto) 0.8, Eosinophils # (Auto) 0.2, Basophils # (Auto) 0.1, Calcium Level 9.1 ARABELLA MCCORD MD Mar 13, 2019 13:59
[2019-03-13 14:00] VITALS: BP 122/72
[2019-03-13] MEDS ORDERED: SOD POLYSTYRENE SULFONATE SUSP 15 GM/60 ML UD PO ONE (15:00)
[2019-03-13] MEDS: fentaNYL 50 MCG/HR PATCH TOP SCH (16:43)
[2019-03-13 20:00] VITALS: BP 133/61
[2019-03-13] MEDS: NIACIN 250MG EXTENDED RELEASE CAPSULE PO SCH (22:17)
[2019-03-13] MEDS: SENNA 8.6 MG TAB (SENOKOT) PO SCH (22:19)
[2019-03-13] MEDS: LATANOPROST 0.005% OPHTH SOLN 2.5 ML OU SCH (22:21)
[2019-03-14 05:39] VITALS: BP 145/75
[2019-03-14] MEDS: METOPROLOL TART 25 MG TABLET PO SCH ×3 (06:13→21:34)
[2019-03-14 06:25] LABS: BLOOD UREA NITROGEN 39 MG/DL (7-18); CARBON DIOXIDE LEVEL 35 MEQ/L (21-32); CHLORIDE LEVEL 101 MEQ/L (98-107); CREATININE FOR GFR 1.24 MG/DL (0.70-1.30); GLOMERULAR FILTRATION RATE > 60.0 (>49); GLUCOSE, FASTING 178 MG/DL (70-100); POTASSIUM SERUM 4.7 MEQ/L (3.5-5.1); SODIUM LEVEL 140 MEQ/L (136-145)
[2019-03-14] MEDS: oxyCODONE 5MG TAB PO PRN ×3 (06:36→18:08)
[2019-03-14] MEDS: IPRATROPIUM 0.5MG/ALBUTEROL 2.5MG INH SOL UD 3ML (DUONEB)(J7620) NEB SCH ×3 (07:31→20:23)
[2019-03-14] MEDS: SALMETEROL DISKUS 50MCG INHALER (SEREVENT) INH SCH ×2 (07:31→20:21)
[2019-03-14] MEDS: HumaLOG INSULIN (NovoLOG) PER UNIT SC SCH ×7 (07:53→21:35)
[2019-03-14] MEDS: LEVEMIR (INSULIN DETEMIR) 1 UNITS/0.01ML SC SCH ×2 (07:53→21:35)
[2019-03-14] MEDS: MAGNESIUM OXIDE 400 MG TAB (MAG-OX) PO SCH (07:54)
[2019-03-14] MEDS: PANTOPRAZOLE 40MG TAB (PROTONIX) PO SCH (07:54)
[2019-03-14] MEDS: GABAPENTIN 300 MG CAP PO SCH ×3 (07:54→21:33)
[2019-03-14] MEDS: APIXABAN 5 MG TAB (ELIQUIS) PO SCH ×2 (07:54→21:34)
[2019-03-14] MEDS: DULoxetine 30 MG CAP (CYMBALTA) PO SCH (07:55)
[2019-03-14] MEDS: amLODIPine 10 MG TAB PO SCH (07:55)
[2019-03-14] MEDS: PRAVASTATIN 20 MG TAB PO SCH (07:55)
[2019-03-14] MEDS: ASPIRIN 81 MG CHEW TABLET PO SCH (07:56)
[2019-03-14] MEDS: DOCUSATE SODIUM 100 MG CAP PO SCH ×2 (07:56→21:34)
[2019-03-14] MEDS: LISINOPRIL 5 MG TAB PO SCH (07:56)
--- NOTE | 2019-03-14 11:49 | IPNPDOC ---
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 REVIEW OF SYSTEMS: The following is a completed review of systems and has been reviewed. Review of systems otherwise unremarkable. PAIN: Patient self reports no pain EYES: No recent vision changes EARS, NOSE, & THROAT: No throat pain, or dysphagia, or rhinorrhea CARDIOVASCULAR: Denies chest pain or palpitations PULMONARY: Denies shortness of breath GASTROINTESTINAL: Denies constipation/diarrhea GENITOURINARY: no dysuria MUSCULOSKELETAL: cervical stenosis NEUROLOGICAL: peripheral polyneuropathy SKIN: left calf and right D1 toe ulcer PSYCHIATRIC: Unremarkable All other review of systems found to be negative. PHYSICAL EXAMINATION: VITAL SIGNS: Please see below. GENERAL: Pleasant and cooperative. No acute distress. HEENT: PERRL. Extraocular movements intact. Clear conjunctiva CARDIOVASCULAR: Iregular rate and rhythm. No murmurs, rubs, or gallops LUNGS: Clear to auscultation bilaterally. No wheezes. No rhonchi ABDOMEN: Soft, nontender, nondistended. Positive bowel sounds. Normal active bowel sounds NEUROLOGICAL: Alert and oriented times three. Cranial nerves II through XII grossly intact. Sensation diminished bilateral finger tips and bilateral feet and calves EXTREMITIES: 4+\5 strength bilateral upper extremities. 4\5 strength bilateral hip flexion, knee extension, 3+/5 ankle DF and EHL (on the right only) decreased ROM left hip SKIN: left utaamp-rscurtl-wrofilrtp calf with venous stasis ulcer filling in well, less drainage, no foul odor, appears clean right foot D1 ulcer c/d/i ASSESSMENT:63-year-old M with past medical history of CAD, DM, PVD who presents status post sepsis due to left calf venous wounds in setting of worsening peripheral polyneuropathy. PLAN: 1. Rehab- PT strenghthen, stretch, and maintain ROM bilat LE, PWB LLE except for stairs OT- PT strengthen, stretch, and maintain ROM bilat UE, teach ADL management 2. Neuro: peripheral neuropathy secondary to poorly controlled DM and PVD with gait impairment- optimize glucose control 3. CArdio: CAD s/p stents c/u ASA, recently diagnosed Afib started on Eliquis and metoprolol, medicine consulted to assist in overall management -HTN, c/u lisinopril and amlodipine 4. Resp: current smoker, c/u breathing treatments, encourage incentive spirometry 5. Endo: poorly controlled DM, c/u glipizide and increase Insulin Long acting BID, c/u ISS, avoid metformin for elevated creatinine 6. ID: s/p 4 day course of VAnco/Zosyn with negative blood cultures, left calf wound does not appear infected at this time, will monitor for leukocytosis and order ESR/CRP- overall improving, afebrile 7. SKin: right foot first digit PAD ulcer and left calf venous ulcer, tele-wound care consulted, recs greatly appreciated 8. DVT ppx: eliquis 9. GI ppx: protonix 10. Pain: c/u oxycodone, gabapentin, Fentanyl patch and Cymbalta, patient long- term opioid user followed by pain clinic 10. DIspo: 03/26/19 to home, progressing towards goals Allergies Coded Allergies: No Known Drug Allergies (Verified Allergy, Unknown, 01/05/19) Vital Signs Vital Signs Date Time Temp Pulse Resp B/P (MAP) Pulse Ox O2 Delivery O2 Flow Rate FiO2 03/14/19 07:56 18 03/14/19 07:55 76 145/75 03/14/19 05:39 97.1 96 Laboratory Data CBC/BMP Laboratory Tests 03/13/19 12:37 Red Blood Count 5.89, Mean Corpuscular Volume 87.9, Mean Corpuscular Hemoglobin 27.0, Mean Corpuscular Hemoglobin Concent 30.7 L, Red Cell Distribution Width 15.6 H, Neutrophils (%) (Auto) 69.3 H, Lymphocytes (%) (Auto) 18.7 L, Monocytes (%) (Auto) 8.4 H, Eosinophils (%) (Auto) 1.7, Basophils (%) (Auto) 1.0, Neutrophils # (Auto) 6.9, Lymphocytes # (Auto) 1.9, Monocytes # (Auto) 0.8, Eosinophils # (Auto) 0.2, Basophils # (Auto) 0.1, Calcium Level 9.1 03/14/19 05:42 Calcium Level 9.0 Labs 24H Laboratory Tests 2 03/13/19 11:56: Bedside Glucose (Misc Panel) 356H 03/13/19 12:37: Immature Granulocyte % (Auto) 0.9, White Blood Count 10.0, Red Blood Count 5.89, Hemoglobin 15.9, Hematocrit 51.8, Mean Corpuscular Volume 87.9, Mean Corpuscular Hemoglobin 27.0, Mean Corpuscular Hemoglobin Concent 30.7L, Red Cell Distribution Width 15.6H, Platelet Count 275, Neutrophils (%) (Auto) 69.3H, Lymphocytes (%) (Auto) 18.7L, Monocytes (%) (Auto) 8.4H, Eosinophils (%) (Auto) 1.7, Basophils (%) (Auto) 1.0, Neutrophils # (Auto) 6.9, Lymphocytes # (Auto) 1.9, Monocytes # (Auto) 0.8, Eosinophils # (Auto) 0.2, Basophils # (Auto) 0.1, Nucleated Red Blood Cells % (auto) 0.0, Anion Gap 4L, Glomerular Filtration Rate > 60.0, Blood Urea Nitrogen 36H, Creatinine 1.26, Sodium Level 134L, Potassium Level 6.1*H, Chloride Level 97L, Carbon Dioxide Level 33H, Calcium Level 9.1 03/13/19 17:02: Bedside Glucose (Misc Panel) 295H 03/13/19 20:13: Bedside Glucose (Misc Panel) 317H 03/14/19 05:42: Anion Gap 4L, Glomerular Filtration Rate > 60.0, Blood Urea Nitrogen 39H, Creatinine 1.24, Sodium Level 140, Potassium Level 4.7#, Chloride Level 101, Carbon Dioxide Level 35H, Calcium Level 9.0 03/14/19 06:16: Bedside Glucose (Misc Panel) 207H Current Medications Current Medications Current Medications Medications (Trade) Dose Ordered Sig/Lexi Route PRN Reason Start Time Stop Time Status Last Admin Dose Admin Acetaminophen (Tylenol Tab) 650 mg Q4HP PRN PO MILD PAIN (PS 1-4) 03/08/19 16:15 Albuterol/ Ipratropium (Duoneb (Ipr 0.5mg/Alb 2.5mg)) 3 ml RTID NEB 03/08/19 20:00 03/13/19 14:42 Amlodipine Besylate (Norvasc) 10 mg DAILY PO 03/09/19 09:00 03/14/19 07:55 Apixaban (Eliquis) 5 mg BID PO 03/08/19 21:00 03/14/19 07:54 Aspirin (Aspirin Chewable) 81 mg DAILY PO 03/09/19 09:00 03/14/19 07:56 Bisacodyl (Dulcolax Suppository) 10 mg DAILYPRN PRN NM CONSTIPATION 03/08/19 16:15 Dextrose (Dextrose 50%) 25 ml ASDIRECTED PRN IV SEE LABEL COMMENTS 03/08/19 16:15 Docusate Sodium (Colace) 100 mg BID PO 03/08/19 21:00 03/13/19 22:18 Duloxetine HCl (Cymbalta) 60 mg DAILY PO 03/09/19 09:00 03/14/19 07:55 Fentanyl (Duragesic) 50 mcg Q72H TOP 03/10/19 17:00 03/13/19 16:43 Gabapentin (Neurontin) 600 mg TID PO 03/08/19 21:00 03/14/19 07:54 Glucagon (Glucagon) 1 mg ASDIRECTED PRN SC SEE LABEL COMMENTS 03/08/19 16:15 Glucose (Glucose) 16 GM ASDIRECTED PRN PO SEE LABEL COMMENTS 03/08/19 16:15 Home Med (Med Rec Complete!) ASDIRECTED XX 03/08/19 18:00 03/08/19 18:09 DC Insulin Detemir (Levemir Insulin) 40 units BID SC 03/08/19 21:00 03/09/19 13:58 DC 03/09/19 09:15 Insulin Detemir (Levemir Insulin) 45 units BID SC 03/09/19 21:00 03/12/19 14:48 DC 03/12/19 08:33 Insulin Detemir (Levemir Insulin) 48 units BID SC 03/12/19 21:00 03/13/19 08:13 DC 03/12/19 21:08 Insulin Detemir (Levemir Insulin) 50 units BID SC 03/13/19 09:00 03/14/19 07:53 Insulin Human Lispro (HumaLOG INSULIN) 4 units AC SC 03/13/19 12:00 03/14/19 07:54 Insulin Human Lispro (HumaLOG INSULIN) SEE PROTOCOL TABLE AC SC 03/08/19 17:30 03/14/19 07:53 Insulin Human Lispro (HumaLOG INSULIN) SEE PROTOCOL TABLE QHS SC 03/08/19 21:00 03/13/19 22:19 Latanoprost (Xalatan 0.005% Op Soln) 1 drop QHS OU 03/08/19 21:00 03/13/19 22:21 Lisinopril (Prinivil) 5 mg DAILY PO 03/14/19 09:00 03/14/19 07:56 Lisinopril (Prinivil) 20 mg DAILY PO 03/09/19 09:00 03/13/19 13:55 DC 03/13/19 08:48 Magnesium Hydroxide (Milk Of Magnesia) 30 ml DAILYPRN PRN PO CONSTIPATION 03/08/19 16:15 Magnesium Oxide (Mag-Ox) 400 mg DAILY PO 03/09/19 09:00 03/14/19 07:54 Metoprolol Tartrate (Lopressor) 25 mg BID PO 03/08/19 21:00 03/13/19 13:55 DC 03/13/19 08:48 Metoprolol Tartrate (Lopressor) 25 mg Q8H PO 03/13/19 14:00 03/14/19 06:13 Niacin (Niacin Er) 500 mg QPM PO 03/08/19 21:00 03/13/19 22:17 Nicotine (Nicorette) 2 mg Q2HP PRN PO NICOTINE WITHDRAWAL 03/08/19 18:30 Non-Formulary Medication ( See Comment Field Below ) SEE COMMENTS SECTION ASDIRECTED XX 03/10/19 14:00 03/10/19 17:50 Oxycodone HCl (Roxicodone, Oxyir) 10 mg Q4HP PRN PO SEVERE PAIN (PS 8-10) 03/08/19 16:15 03/14/19 06:36 Pantoprazole Sodium (Protonix) 40 mg DAILY PO 03/09/19 09:00 03/14/19 07:54 Pravastatin Sodium (Pravachol) 20 mg DAILY PO 03/09/19 09:00 03/14/19 07:55 Salmeterol Xinafoate (Serevent Diskus) 1 puff BID INH 03/08/19 21:00 03/14/19 07:31 Senna (Senokot) 1 tab QHS PO 03/08/19 21:00 03/13/19 22:19 ANNETTE PLAZA MD Mar 14, 2019 11:49
[2019-03-14 14:00] VITALS: BP 134/64
[2019-03-14 21:26] VITALS: BP 114/57
[2019-03-14] MEDS: SENNA 8.6 MG TAB (SENOKOT) PO SCH (21:33)
[2019-03-14] MEDS: NIACIN 250MG EXTENDED RELEASE CAPSULE PO SCH (21:33)
[2019-03-14] MEDS: LATANOPROST 0.005% OPHTH SOLN 2.5 ML OU SCH (21:35)
[2019-03-15] MEDS: METOPROLOL TART 25 MG TABLET PO SCH ×3 (05:24→21:18)
[2019-03-15 05:47] VITALS: BP 144/78
[2019-03-15] MEDS: oxyCODONE 5MG TAB PO PRN ×3 (07:18→21:18)
[2019-03-15] MEDS: SALMETEROL DISKUS 50MCG INHALER (SEREVENT) INH SCH ×2 (07:53→21:33)
[2019-03-15] MEDS: IPRATROPIUM 0.5MG/ALBUTEROL 2.5MG INH SOL UD 3ML (DUONEB)(J7620) NEB SCH ×3 (07:53→21:05)
[2019-03-15] MEDS: LEVEMIR (INSULIN DETEMIR) 1 UNITS/0.01ML SC SCH ×2 (08:09→21:19)
[2019-03-15] MEDS: HumaLOG INSULIN (NovoLOG) PER UNIT SC SCH ×7 (08:10→21:00)
[2019-03-15] MEDS: GABAPENTIN 300 MG CAP PO SCH ×3 (08:12→21:18)
[2019-03-15] MEDS: amLODIPine 10 MG TAB PO SCH (08:12)
[2019-03-15] MEDS: MAGNESIUM OXIDE 400 MG TAB (MAG-OX) PO SCH (08:12)
[2019-03-15] MEDS: LISINOPRIL 5 MG TAB PO SCH (08:12)
[2019-03-15] MEDS: PRAVASTATIN 20 MG TAB PO SCH (08:13)
[2019-03-15] MEDS: PANTOPRAZOLE 40MG TAB (PROTONIX) PO SCH (08:13)
[2019-03-15] MEDS: APIXABAN 5 MG TAB (ELIQUIS) PO SCH ×2 (08:13→21:17)
[2019-03-15] MEDS: DOCUSATE SODIUM 100 MG CAP PO SCH ×2 (08:13→21:00)
[2019-03-15] MEDS: ASPIRIN 81 MG CHEW TABLET PO SCH (08:13)
[2019-03-15] MEDS: DULoxetine 30 MG CAP (CYMBALTA) PO SCH (08:13)
--- NOTE | 2019-03-15 10:50 | IPNPDOC ---
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 Wound dressing change again today. REVIEW OF SYSTEMS: The following is a completed review of systems and has been reviewed. Review of systems otherwise unremarkable. PAIN: Patient self reports no pain EYES: No recent vision changes EARS, NOSE, & THROAT: No throat pain, or dysphagia, or rhinorrhea CARDIOVASCULAR: Denies chest pain or palpitations PULMONARY: Denies shortness of breath GASTROINTESTINAL: Denies constipation/diarrhea GENITOURINARY: no dysuria MUSCULOSKELETAL: cervical stenosis NEUROLOGICAL: peripheral polyneuropathy SKIN: left calf and right D1 toe ulcer PSYCHIATRIC: Unremarkable All other review of systems found to be negative. PHYSICAL EXAMINATION: VITAL SIGNS: Please see below. GENERAL: Pleasant and cooperative. No acute distress. HEENT: PERRL. Extraocular movements intact. Clear conjunctiva CARDIOVASCULAR: Iregular rate and rhythm. No murmurs, rubs, or gallops LUNGS: Clear to auscultation bilaterally. No wheezes. No rhonchi ABDOMEN: Soft, nontender, nondistended. Positive bowel sounds. Normal active bowel sounds NEUROLOGICAL: Alert and oriented times three. Cranial nerves II through XII grossly intact. Sensation diminished bilateral finger tips and bilateral feet and calves EXTREMITIES: 4+\5 strength bilateral upper extremities. 4\5 strength bilateral hip flexion, knee extension, 3+/5 ankle DF and EHL (on the right only) decreased ROM left hip SKIN: left [id number] calf with venous stasis ulcer filling in well, less drainage, no foul odor, appears clean and dry right foot D1 ulcer c/d/i ASSESSMENT:63-year-old M with past medical history of CAD, DM, PVD who presents status post sepsis due to left calf venous wounds in setting of worsening peripheral polyneuropathy. PLAN: 1. Rehab- PT strenghthen, stretch, and maintain ROM bilat LE, PWB LLE except for stairs OT- PT strengthen, stretch, and maintain ROM bilat UE, teach ADL management 2. Neuro: peripheral neuropathy secondary to poorly controlled DM and PVD with gait impairment- optimize glucose control 3. CArdio: CAD s/p stents c/u ASA, recently diagnosed Afib started on Eliquis and metoprolol, medicine consulted to assist in overall management -HTN, c/u lisinopril and amlodipine 4. Resp: current smoker, c/u breathing treatments, encourage incentive spirometry 5. Endo: poorly controlled DM, c/u glipizide and increase Insulin Long acting BID, c/u ISS, avoid metformin for elevated creatinine 6. ID: s/p 4 day course of VAnco/Zosyn with negative blood cultures, left calf wound does not appear infected at this time, will monitor for leukocytosis and order ESR/CRP- overall improving, afebrile 7. SKin: right foot first digit PAD ulcer and left calf venous ulcer, tele-wound care consulted, recs greatly appreciated, will d/c max-sorb as wound drying out, add hydrogel and cover with optilock- change daily 8. DVT ppx: eliquis 9. GI ppx: protonix 10. Pain: c/u oxycodone, gabapentin, Fentanyl patch and Cymbalta, patient long- term opioid user followed by pain clinic 10. DIspo: 03/19/19 to home, progressing towards goals Allergies Coded Allergies: No Known Drug Allergies (Verified Allergy, Unknown, 01/05/19) Vital Signs Vital Signs Date Time Temp Pulse Resp B/P (MAP) Pulse Ox O2 Delivery O2 Flow Rate FiO2 03/15/19 08:12 134/72 03/15/19 08:00 18 03/15/19 05:47 97.1 73 96 Laboratory Data Labs 24H Laboratory Tests 2 03/14/19 12:24: Bedside Glucose (Misc Panel) 189H 03/14/19 16:56: Bedside Glucose (Misc Panel) 304H 03/14/19 20:10: Bedside Glucose (Misc Panel) 329H 03/15/19 06:24: Bedside Glucose (Misc Panel) 210H Current Medications Current Medications Current Medications Medications (Trade) Dose Ordered Sig/Lexi Route PRN Reason Start Time Stop Time Status Last Admin Dose Admin Acetaminophen (Tylenol Tab) 650 mg Q4HP PRN PO MILD PAIN (PS 1-4) 03/08/19 16:15 Albuterol/ Ipratropium (Duoneb (Ipr 0.5mg/Alb 2.5mg)) 3 ml RTID NEB 03/08/19 20:00 03/14/19 20:23 Amlodipine Besylate (Norvasc) 10 mg DAILY PO 03/09/19 09:00 03/15/19 08:12 Apixaban (Eliquis) 5 mg BID PO 03/08/19 21:00 03/15/19 08:13 Aspirin (Aspirin Chewable) 81 mg DAILY PO 03/09/19 09:00 03/15/19 08:13 Bisacodyl (Dulcolax Suppository) [address] CONSTIPATION 03/08/19 16:15 Dextrose (Dextrose 50%) 25 ml ASDIRECTED PRN IV SEE LABEL COMMENTS 03/08/19 16:15 Docusate Sodium (Colace) 100 mg BID PO 03/08/19 21:00 03/15/19 08:13 Duloxetine HCl (Cymbalta) 60 mg DAILY PO 03/09/19 09:00 03/15/19 08:13 Fentanyl (Duragesic) 50 mcg Q72H TOP 03/10/19 17:00 03/13/19 16:43 Gabapentin (Neurontin) 600 mg TID PO 03/08/19 21:00 03/15/19 08:12 Glucagon (Glucagon) 1 mg ASDIRECTED PRN SC SEE LABEL COMMENTS 03/08/19 16:15 Glucose (Glucose) 16 GM ASDIRECTED PRN PO SEE LABEL COMMENTS 03/08/19 16:15 Home Med (Med Rec Complete!) ASDIRECTED XX 03/08/19 18:00 03/08/19 18:09 DC Insulin Detemir (Levemir Insulin) 40 units BID SC 03/08/19 21:00 03/09/19 13:58 DC 03/09/19 09:15 Insulin Detemir (Levemir Insulin) 45 units BID SC 03/09/19 21:00 03/12/19 14:48 DC 03/12/19 08:33 Insulin Detemir (Levemir Insulin) 48 units BID SC 03/12/19 21:00 03/13/19 08:13 DC 03/12/19 21:08 Insulin Detemir (Levemir Insulin) 50 units BID SC 03/13/19 09:00 03/15/19 08:09 Insulin Human Lispro (HumaLOG INSULIN) 4 units AC SC 03/13/19 12:00 03/15/19 08:11 Insulin Human Lispro (HumaLOG INSULIN) SEE PROTOCOL TABLE AC SC 03/08/19 17:30 03/15/19 08:10 Insulin Human Lispro (HumaLOG INSULIN) SEE PROTOCOL TABLE QHS SC 03/08/19 21:00 03/14/19 21:35 Latanoprost (Xalatan 0.005% Op Soln) 1 drop QHS OU 03/08/19 21:00 03/14/19 21:35 Lisinopril (Prinivil) 5 mg DAILY PO 03/14/19 09:00 03/15/19 08:12 Lisinopril (Prinivil) 20 mg DAILY PO 03/09/19 09:00 03/13/19 13:55 DC 03/13/19 08:48 Magnesium Hydroxide (Milk Of Magnesia) 30 ml DAILYPRN PRN PO CONSTIPATION 03/08/19 16:15 Magnesium Oxide (Mag-Ox) 400 mg DAILY PO 03/09/19 09:00 03/15/19 08:12 Metoprolol Tartrate (Lopressor) 25 mg BID PO 03/08/19 21:00 03/13/19 13:55 DC 03/13/19 08:48 Metoprolol Tartrate (Lopressor) 25 mg Q8H PO 03/13/19 14:00 03/15/19 05:24 Miscellaneous (Unresolved Clarification Entry) SEE LABEL COMMENTS DAILY XX 03/15/19 09:00 03/15/19 10:09 DC Niacin (Niacin Er) 500 mg QPM PO 03/08/19 21:00 03/14/19 21:33 Nicotine (Nicorette) 2 mg Q2HP PRN PO NICOTINE WITHDRAWAL 03/08/19 18:30 Non-Formulary Medication ( See Comment Field Below ) SEE COMMENTS SECTION ASDIRECTED XX 03/10/19 14:00 03/10/19 17:50 Oxycodone HCl (Roxicodone, Oxyir) 10 mg Q4HP PRN PO SEVERE PAIN (PS 8-10) 03/08/19 16:15 03/15/19 07:18 Pantoprazole Sodium (Protonix) 40 mg DAILY PO 03/09/19 09:00 03/15/19 08:13 Pravastatin Sodium (Pravachol) 20 mg DAILY PO 03/09/19 09:00 03/15/19 08:13 Salmeterol Xinafoate (Serevent Diskus) 1 puff BID INH 03/08/19 21:00 03/15/19 07:53 Senna (Senokot) 1 tab QHS PO 03/08/19 21:00 03/14/19 21:33 ANNETTE PLAZA MD Mar 15, 2019 10:50
[2019-03-15 14:00] VITALS: BP 129/59
[2019-03-15 20:00] VITALS: BP 111/57
[2019-03-15] MEDS: SENNA 8.6 MG TAB (SENOKOT) PO SCH (21:00)
[2019-03-15] MEDS: NIACIN 250MG EXTENDED RELEASE CAPSULE PO SCH (21:17)
[2019-03-15] MEDS: LATANOPROST 0.005% OPHTH SOLN 2.5 ML OU SCH (21:19)
[2019-03-16 06:00] VITALS: BP 143/76
[2019-03-16] MEDS: oxyCODONE 5MG TAB PO PRN ×3 (06:14→20:43)
[2019-03-16] MEDS: METOPROLOL TART 25 MG TABLET PO SCH ×3 (06:15→22:19)
[2019-03-16] MEDS: SALMETEROL DISKUS 50MCG INHALER (SEREVENT) INH SCH (07:56)
[2019-03-16] MEDS: IPRATROPIUM 0.5MG/ALBUTEROL 2.5MG INH SOL UD 3ML (DUONEB)(J7620) NEB SCH ×2 (07:56→13:45)
[2019-03-16] MEDS: HumaLOG INSULIN (NovoLOG) PER UNIT SC SCH ×7 (08:41→20:44)
[2019-03-16] MEDS: PRAVASTATIN 20 MG TAB PO SCH (08:42)
[2019-03-16] MEDS: DOCUSATE SODIUM 100 MG CAP PO SCH ×2 (08:42→20:42)
[2019-03-16] MEDS: ASPIRIN 81 MG CHEW TABLET PO SCH (08:42)
[2019-03-16] MEDS: LEVEMIR (INSULIN DETEMIR) 1 UNITS/0.01ML SC SCH ×2 (08:42→20:43)
[2019-03-16] MEDS: APIXABAN 5 MG TAB (ELIQUIS) PO SCH ×2 (08:42→20:42)
[2019-03-16] MEDS: DULoxetine 30 MG CAP (CYMBALTA) PO SCH (08:42)
[2019-03-16] MEDS: GABAPENTIN 300 MG CAP PO SCH ×3 (08:43→20:42)
[2019-03-16] MEDS: LISINOPRIL 5 MG TAB PO SCH (08:43)
[2019-03-16] MEDS: PANTOPRAZOLE 40MG TAB (PROTONIX) PO SCH (08:43)
[2019-03-16] MEDS: MAGNESIUM OXIDE 400 MG TAB (MAG-OX) PO SCH (08:43)
[2019-03-16] MEDS: amLODIPine 10 MG TAB PO SCH (08:43)
[2019-03-16 14:00] VITALS: BP 101/65
[2019-03-16] MEDS: fentaNYL 50 MCG/HR PATCH TOP SCH (17:20)
[2019-03-16] MEDS: FENTANYL REMOVAL DOCUMENTATION MISC XX SCH (17:30)
[2019-03-16 20:00] VITALS: BP 147/69
[2019-03-16] MEDS: NIACIN 250MG EXTENDED RELEASE CAPSULE PO SCH (20:41)
[2019-03-16] MEDS: SENNA 8.6 MG TAB (SENOKOT) PO SCH (20:42)
[2019-03-16] MEDS: LATANOPROST 0.005% OPHTH SOLN 2.5 ML OU SCH (20:44)
[2019-03-17 06:00] VITALS: BP 132/87
[2019-03-17] MEDS: METOPROLOL TART 25 MG TABLET PO SCH ×3 (06:44→22:38)
[2019-03-17] MEDS: oxyCODONE 5MG TAB PO PRN ×4 (06:45→22:56)
[2019-03-17] MEDS: IPRATROPIUM 0.5MG/ALBUTEROL 2.5MG INH SOL UD 3ML (DUONEB)(J7620) NEB SCH ×3 (08:00→20:00)
[2019-03-17] MEDS: SALMETEROL DISKUS 50MCG INHALER (SEREVENT) INH SCH ×2 (08:10→20:20)
[2019-03-17] MEDS: HumaLOG INSULIN (NovoLOG) PER UNIT SC SCH ×7 (08:46→22:36)
[2019-03-17] MEDS: DULoxetine 30 MG CAP (CYMBALTA) PO SCH (08:47)
[2019-03-17] MEDS: PANTOPRAZOLE 40MG TAB (PROTONIX) PO SCH (08:47)
[2019-03-17] MEDS: APIXABAN 5 MG TAB (ELIQUIS) PO SCH ×2 (08:47→22:37)
[2019-03-17] MEDS: ASPIRIN 81 MG CHEW TABLET PO SCH (08:47)
[2019-03-17] MEDS: PRAVASTATIN 20 MG TAB PO SCH (08:47)
[2019-03-17] MEDS: DOCUSATE SODIUM 100 MG CAP PO SCH ×2 (08:47→22:37)
[2019-03-17] MEDS: MAGNESIUM OXIDE 400 MG TAB (MAG-OX) PO SCH (08:47)
[2019-03-17] MEDS: amLODIPine 10 MG TAB PO SCH (08:49)
[2019-03-17] MEDS: LEVEMIR (INSULIN DETEMIR) 1 UNITS/0.01ML SC SCH ×2 (08:50→22:36)
[2019-03-17] MEDS: GABAPENTIN 300 MG CAP PO SCH ×3 (08:50→22:37)
[2019-03-17] MEDS: LISINOPRIL 5 MG TAB PO SCH (08:50)
[2019-03-17 14:00] VITALS: BP 123/66
--- NOTE | 2019-03-17 16:06 | IPNPDOC ---
Date Seen The patient was seen on 03/17/19. Progress Note SUBJECTIVE: Patient has no complaints. BS elevated >300. <200 today. No acute events reported overnight. OBJECTIVE PHYSICAL EXAMINATION: VITAL SIGNS: Please see below. General: No acute distress, Alert Eyes: Normal sclera, EOMI, EMMANUEL HENT: Atraumatic, neck supple Cardiovascular: Normal rate, normal rhythm. Pulmonary: Clear to auscultation b/l, no wheezing GI: Soft, nontender, nondistended Skin: Chronic stasis changes in LE. L. foot with overlying bandage. Neuro: CN grossly intact. Psych: oriented x 3 LABORATORY DATA, IMAGING STUDIES, MICROBIOLOGY: Please see below. ASSESSMENT AND PLAN: 1. Peripheral arterial and venous insufficiency - b/l LE ulcerations worse on L. - c/w wound care/dressing changes. - Pain control. - PT 2. Diabetic neuropathy - decrease sensation in distal fingers b/l. - c/w gabapentin. 3. Afib - c/w Elilquis and metoprolol. 4. HTN - Monitor BP. - Lisinopril 5 mg and norvasc 10 mg daily. 5. DM - BS labile/elevated. Levemir 55 BID-> 60 units BID. - ISS coverage. VS, I&O, 24H, Fishbone Vital Signs/I&O Vital Signs Date Time Temp Pulse Resp B/P (MAP) Pulse Ox O2 Delivery O2 Flow Rate FiO2 03/17/19 14:00 98.0 88 18 123/66 (85) 97 I&O- Last 24 Hours up to 6 AM 03/17/19 05:59 Intake Total 1560 ml Output Total 3000 ml Balance -1440 ml Laboratory Data 24H LABS Laboratory Tests 2 03/16/19 17:11: Bedside Glucose (Misc Panel) 384H 03/16/19 20:24: Bedside Glucose (Misc Panel) 339H 03/17/19 06:58: Bedside Glucose (Misc Panel) 175H 03/17/19 12:21: Bedside Glucose (Misc Panel) 199H JULIO BORDEN MD Mar 17, 2019 16:06
[2019-03-17 20:00] VITALS: BP 117/58
[2019-03-17] MEDS: SENNA 8.6 MG TAB (SENOKOT) PO SCH (22:37)
[2019-03-17] MEDS: NIACIN 250MG EXTENDED RELEASE CAPSULE PO SCH (22:37)
[2019-03-17] MEDS: LATANOPROST 0.005% OPHTH SOLN 2.5 ML OU SCH (22:38)
[2019-03-18 06:03] VITALS: BP 139/77
[2019-03-18] MEDS: METOPROLOL TART 25 MG TABLET PO SCH ×3 (06:06→21:15)
[2019-03-18] MEDS: oxyCODONE 5MG TAB PO PRN ×3 (06:45→21:17)
[2019-03-18] MEDS: SALMETEROL DISKUS 50MCG INHALER (SEREVENT) INH SCH ×2 (07:41→20:58)
[2019-03-18] MEDS: IPRATROPIUM 0.5MG/ALBUTEROL 2.5MG INH SOL UD 3ML (DUONEB)(J7620) NEB SCH ×3 (07:41→20:00)
[2019-03-18 07:52] LABS: HEMATOCRIT 53.2 % (42.0-52.0); HEMOGLOBIN 16.2 g/dl (13.5-17.5); MEAN CORPUSCULAR HGB CONC 30.5 g/dl (32.0-36.5); MEAN CORPUSCULAR VOLUME 88.8 fl (80.0-96.0); PLATELET COUNT, AUTOMATED 302 10^3/uL (150-450); RED BLOOD COUNT 5.99 10^6/uL (4.30-6.10); WHITE BLOOD COUNT 10.6 10^3/uL (4.0-10.0)
[2019-03-18 08:17] LABS: CALCIUM LEVEL 9.3 MG/DL (8.8-10.2); CREATININE FOR GFR 1.41 MG/DL (0.70-1.30); POTASSIUM SERUM 4.6 MEQ/L (3.5-5.1)
[2019-03-18] MEDS: ASPIRIN 81 MG CHEW TABLET PO SCH (08:27)
[2019-03-18] MEDS: GABAPENTIN 300 MG CAP PO SCH ×3 (08:29→21:14)
[2019-03-18] MEDS: PRAVASTATIN 20 MG TAB PO SCH (08:29)
[2019-03-18] MEDS: amLODIPine 10 MG TAB PO SCH (08:29)
[2019-03-18] MEDS: MAGNESIUM OXIDE 400 MG TAB (MAG-OX) PO SCH (08:29)
[2019-03-18] MEDS: APIXABAN 5 MG TAB (ELIQUIS) PO SCH ×2 (08:29→21:14)
[2019-03-18] MEDS: LISINOPRIL 5 MG TAB PO SCH (08:29)
[2019-03-18] MEDS: PANTOPRAZOLE 40MG TAB (PROTONIX) PO SCH (08:29)
[2019-03-18] MEDS: DULoxetine 30 MG CAP (CYMBALTA) PO SCH (08:30)
[2019-03-18] MEDS: DOCUSATE SODIUM 100 MG CAP PO SCH ×2 (08:30→21:00)
[2019-03-18] MEDS: HumaLOG INSULIN (NovoLOG) PER UNIT SC SCH ×7 (08:32→21:15)
[2019-03-18] MEDS: LEVEMIR (INSULIN DETEMIR) 1 UNITS/0.01ML SC SCH ×2 (08:33→21:16)
[2019-03-18 14:00] VITALS: BP 110/52
--- NOTE | 2019-03-18 16:22 | IPNPDOC ---
Text Note Date of Service The patient was seen on 03/18/19. NOTE Subjective: The patient is calm and comfortable and has no complaints regarding any of his rashes or skin conditions. Objective Physical exam: Vital signs: Please see below. HENT: Neck is supple with no adenopathy or thyromegaly. Oral mucosa is moist Cardiovascular: Regular rate and rhythm with a normal S1 and S2. Respiratory: Clear to auscultation with normal air movement. Abdominal: Soft, nontender, nondistended, normal bowel tones. Extremities: No remarkable edema, patient has chronic vascular changes, legs are in compression dressings, he also has remarkable joint deformity and some disability to his hands. Skin: Additionally, please note the patient has multiple psoriatic skin lesions; some are larger than others Assessment/plan: 1. Peripheral vascular disease. Has some ulcerations due to vascular disease and others due to psoriasis. These are being treated accordingly. 2. Diabetic neuropathy. Continues on gabapentin. 3. Atrial fibrillation, chronic. Continues with Eliquis for anticoagulation and metoprolol for rate control. 4. Essential hypertension remains on lisinopril and Norvasc. Disposition: Patient should be able to be discharged to home with outpatient wound care follow-up. VS,Fishbone, I+O VS, Fishbone, I+O Laboratory Tests 03/18/19 07:38 Red Blood Count 5.99, Mean Corpuscular Volume 88.8, Mean Corpuscular Hemoglobin 27.0, Mean Corpuscular Hemoglobin Concent 30.5 L, Red Cell Distribution Width 15.7 H, Calcium Level 9.3 Vital Signs Date Time Temp Pulse Resp B/P (MAP) Pulse Ox O2 Delivery O2 Flow Rate FiO2 03/18/19 15:02 86 110/52 03/18/19 14:00 97.0 16 92 I&O- Last 24 Hours up to 6 AM 03/18/19 06:00 Intake Total 1200 ml Output Total 1900 ml Balance -700 ml BELL FISH MD Mar 18, 2019 16:22
[2019-03-18 20:00] VITALS: BP 111/56
[2019-03-18] MEDS: SENNA 8.6 MG TAB (SENOKOT) PO SCH ×2 (21:00→21:14)
[2019-03-18] MEDS: NIACIN 250MG EXTENDED RELEASE CAPSULE PO SCH (21:14)
[2019-03-18] MEDS: LATANOPROST 0.005% OPHTH SOLN 2.5 ML OU SCH (21:16)
[2019-03-19 05:30] VITALS: BP 120/64
[2019-03-19] MEDS: METOPROLOL TART 25 MG TABLET PO SCH (05:41)
[2019-03-19] MEDS: oxyCODONE 5MG TAB PO PRN (05:42)
[2019-03-19] MEDS: IPRATROPIUM 0.5MG/ALBUTEROL 2.5MG INH SOL UD 3ML (DUONEB)(J7620) NEB SCH ×2 (07:57→13:44)
[2019-03-19] MEDS: SALMETEROL DISKUS 50MCG INHALER (SEREVENT) INH SCH (07:58)
[2019-03-19] MEDS: HumaLOG INSULIN (NovoLOG) PER UNIT SC SCH ×2 (08:24→08:25)
[2019-03-19] MEDS: ASPIRIN 81 MG CHEW TABLET PO SCH (08:26)
[2019-03-19] MEDS: MAGNESIUM OXIDE 400 MG TAB (MAG-OX) PO SCH (08:26)
[2019-03-19] MEDS: PANTOPRAZOLE 40MG TAB (PROTONIX) PO SCH (08:26)
[2019-03-19] MEDS: DOCUSATE SODIUM 100 MG CAP PO SCH (08:26)
[2019-03-19] MEDS: LEVEMIR (INSULIN DETEMIR) 1 UNITS/0.01ML SC SCH (08:26)
[2019-03-19] MEDS: amLODIPine 10 MG TAB PO SCH (08:26)
[2019-03-19] MEDS: GABAPENTIN 300 MG CAP PO SCH (08:26)
[2019-03-19] MEDS: DULoxetine 30 MG CAP (CYMBALTA) PO SCH (08:26)
[2019-03-19] MEDS: PRAVASTATIN 20 MG TAB PO SCH (08:26)
[2019-03-19 08:27] VITALS: BP 120/64
[2019-03-19] MEDS: LISINOPRIL 5 MG TAB PO SCH (08:27)
[2019-03-19] MEDS: APIXABAN 5 MG TAB (ELIQUIS) PO SCH (08:27)
[2019-03-19] MEDS ORDERED: INSUDET SC (12:17)
[2019-03-19] MEDS ORDERED: GABA-843 PO (12:17)
[2019-03-19] MEDS ORDERED: LISI-542 PO (12:17)
[2019-03-19] MEDS ORDERED: OXYCO5TA PO (12:17)
[2019-03-19] MEDS ORDERED: ASPI81CH8 PO (12:17)
[2019-03-19] MEDS ORDERED: METO1TAB87 PO (12:17)
[2019-03-19] MEDS ORDERED: PANT40TA3 PO (12:17)
[2019-03-19] MEDS ORDERED: CYMB1CAP5 PO (12:17)
[2019-03-19] MEDS ORDERED: PRAV1TAB39 PO (12:17)
[2019-03-19] MEDS ORDERED: ELIQ5TAB PO (12:17)
[2019-03-19] MEDS ORDERED: INSUHUMDS SC (12:17)
[2019-03-19] MEDS ORDERED: AMLO10TA5 PO (12:17)
--- NOTE | 2019-03-21 16:26 | PMRDS ---
DATE OF ADMISSION: 03/08/2019 DATE OF DISCHARGE: 03/19/2019 CHIEF COMPLAINT / DISCHARGE DIAGNOSIS: Peripheral polyneuropathy secondary to diabetes and peripheral vascular disease. HISTORY OF PRESENT ILLNESS: 63-year-old man with a past medical history of diabetes, peripheral neuropathy, hyperlipidemia, hypertension, peripheral artery disease with venous insufficiency, COPD, suspected CLAUDIA, left toe amputation in 2018, and nonhealing ulcers on the left lower calf presented to [facility] from [place] on 03/04/2019 with fevers, chills, tachypnea and bilateral upper extremity shaking, concern for seizures without LOC. He was started on empiric IV antibiotics but eventually taken off after 4 days when urine culture, blood cultures, and chest x-ray came back negative. He was evaluated by pulmonology for PFTs which were inconclusive and the patient was told to followup with outpatient pulmonology for sleep study and repeat PFTs. He was diagnosed with atrial fibrillation and started on Eliquis in addition to beta blockers. He was seen by wound care who made dressing recommendations. He was determined to have asterixis with low suspicion for seizures which was treated with a reduction in his gabapentin dosing. CT head showed "no acute intracranial hemorrhage, evidence of acute territorial infarct or other acute intracranial disease process." He was evaluated by wound care who made recommendations for treatment and told to followup with outpatient wound care clinic where he is already followed. He was evaluated by therapy and found to have impairments well below his prior level of function and deemed medically appropriate for discharge to ARU on 03/08/2019. PAST MEDICAL HISTORY: As per HPI. HOSPITAL COURSE: The patient was admitted and enrolled in a comprehensive PT, OT program. He received 24-hour nursing supervision and weekly team meetings were held to discuss his progress. The patient was continued on his Eliquis for recently diagnosed atrial fibrillation and beta chio. He was also treated with lisinopril and amlodipine. The patient's diabetes was treated with long-acting insulin and metformin was held due to elevated creatinine. His left calf wound initially had copious sanguineous drainage however this resolved over time, his hemoglobin/hematocrit stayed stable. His wound began to heal and dry up and his dressing changes were adjusted accordingly. The patient's pain was well treated with oxycodone, gabapentin, fentanyl, and Cymbalta. He was initially partial weightbearing to the left lower extremity and then maintained weightbearing as tolerated for stairs and short distances without any difficulty. He was deemed medically and functionally stable to return home on 03/19/2019. DISCHARGE MEDICATIONS: As per discharge instructions. FUNCTIONAL HISTORY UPON DISCHARGE: The patient was modified independent for all functional transfers, able to ambulate 200 feet with a rolling walker at a modified independent level and able to negotiate six stairs. In occupational therapy he was minimum assist for lower body dressing and bathing, modified independent for toileting, eating. He was discharged home with followup with wound care and his primary care physician.
== END 2019-03-19 13:20 | disposition home health service (06) | DRG 74 ==
LOC: M PM&R 15:39
PROVIDERS: ADMIT Physical Medicine & Rehabilitation; ATTEND Physical Medicine & Rehabilitation
DX: E11.42 Type 2 diabetes mellitus with diabetic polyneuropathy (principal); L97.229 Non-pressure chronic ulcer of left calf with unspecified severity; E11.51 Type 2 diabetes mellitus with diabetic peripheral angiopathy without gangrene; E78.5 Hyperlipidemia, unspecified; I11.9 Hypertensive heart disease without heart failure; J44.9 Chronic obstructive pulmonary disease, unspecified; G47.33 Obstructive sleep apnea (adult) (pediatric); E11.622 Type 2 diabetes mellitus with other skin ulcer; F17.210 Nicotine dependence, cigarettes, uncomplicated; I48.91 Unspecified atrial fibrillation; Z89.422 Acquired absence of other left toe(s); L97.519 Non-pressure chronic ulcer of other part of right foot with unspecified severity; Z98.1 Arthrodesis status; Z79.01 Long term (current) use of anticoagulants; Z79.4 Long term (current) use of insulin; Z79.82 Long term (current) use of aspirin; Z79.899 Other long term (current) drug therapy; M19.90 Unspecified osteoarthritis, unspecified site; H40.9 Unspecified glaucoma; G83.21 Monoplegia of upper limb affecting right dominant side; G83.24 Monoplegia of upper limb affecting left nondominant side; I25.10 Atherosclerotic heart disease of native coronary artery without angina pectoris; E11.621 Type 2 diabetes mellitus with foot ulcer

== ENCOUNTER → 2019-04-08 | Outpatient (CLI) | payer MEDICARE, BC ==
[~2019-04-08] MED LIST changes: +AMLO10TA5 PO; +ASPI81CH8 PO; +ASPI81TA85 PO; +CYMB1CAP5 PO; +DOCU100C16 PO; +ELIQ5TAB PO; +GABA-843 PO; +INSUDET SC; +LISI-538 PO; +LISI-542 PO; +MAGN500T6 PO; +OXYCO5TA PO; +PANT40TA3 PO; +SALMDISK INH; +VENTAER INH
== END ==
LOC: M PAIN 13:00
PROVIDERS: ATTEND Nurse Practitioner Family
DX: M15.9 Polyosteoarthritis, unspecified (principal); G89.29 Other chronic pain; E11.9 Type 2 diabetes mellitus without complications; I10 Essential (primary) hypertension; E78.00 Pure hypercholesterolemia, unspecified; G47.30 Sleep apnea, unspecified; Z95.5 Presence of coronary angioplasty implant and graft; F17.210 Nicotine dependence, cigarettes, uncomplicated; Z86.14 Personal history of Methicillin resistant Staphylococcus aureus infection; Z79.82 Long term (current) use of aspirin; Z79.4 Long term (current) use of insulin; Z79.891 Long term (current) use of opiate analgesic; Z79.899 Other long term (current) drug therapy

== ENCOUNTER 2019-11-12 14:52 | Inpatient (IN) | payer MEDICARE, BC ==
[~2019-11-12] VITALS: Ht 180.3 cm; Wt 109.1 kg
[~2019-11-12 14:52] MED LIST changes: +INSUNSD SQ; +INSURSD SQ; +MAGN1CAP PO
[2019-11-12] MEDS ORDERED: COLA100C5 PO (15:27)
[2019-11-12] MEDS ORDERED: PIPERACILLIN/TAZOBACTAM SOD 3.375 GM in D5W MINI-BAG PLUS 50 ML IV ONE (15:30)
[2019-11-12] MEDS ORDERED: VANCOMYCIN HCL 1,000 MG, VIAL MATE ADAPTER 1 EACH in D5W 250 ML IV ONE (15:30)
[2019-11-12] MEDS ORDERED: NS 500 ML IV ONE (15:30)
[2019-11-12] MEDS ORDERED: PROA1AER2 INH (15:39)
[2019-11-12] MEDS ORDERED: FENT10PA TOP (15:39)
[2019-11-12 15:49] LABS: BASO # 0.1 10^3/uL (0.0-0.2); BASO % 0.3 % (0.0-1.0); EOS % 0.2 % (0.0-3.0); HEMOGLOBIN 11.6 g/dl (13.5-17.5); LYMPH # 0.7 10^3/uL (1.5-5.0); LYMPH % 3.7 % (24.0-44.0); MEAN CORPUSCULAR HEMOGLOBIN 23.6 pg (27.0-33.0); MEAN CORPUSCULAR HGB CONC 29.7 g/dl (32.0-36.5); MEAN CORPUSCULAR VOLUME 79.4 fl (80.0-96.0); MONO # 1.7 10^3/uL (0.0-0.8); MONO % 9.9 % (0.0-5.0); NEUTROPHILS # 14.9 10^3/uL (1.5-8.5); PLATELET COUNT, AUTOMATED 343 10^3/uL (150-450); RED BLOOD COUNT 4.91 10^6/uL (4.30-6.10); WHITE BLOOD COUNT 17.5 10^3/uL (4.0-10.0)
[2019-11-12 16:01] LABS: INR 1.42; PROTHROMBIN TIME 17.1 SECONDS (11.8-14.0)
[2019-11-12 16:23] LABS: ERYTHROCYTE SEDIMENTATION RATE 13 mm/hr (0-20)
[2019-11-12] MEDS ORDERED: DEXTROSE 50% 50 ML SYRINGE IV STA ×2 (16:30→17:45)
[2019-11-12 16:31] LABS: ALBUMIN 2.5 GM/DL (3.2-5.2); ALT/SGPT 34 U/L (12-78); BILIRUBIN,DIRECT 0.2 MG/DL (0.0-0.2); BILIRUBIN,TOTAL 0.4 MG/DL (0.2-1.0); BLOOD UREA NITROGEN 19 MG/DL (7-18); CALCIUM LEVEL 8.8 MG/DL (8.8-10.2); CARBON DIOXIDE LEVEL 30 MEQ/L (21-32); CHLORIDE LEVEL 97 MEQ/L (98-107); CPK CREATINE PHOSPHOKINASE 261 U/L (39-308); CREATININE FOR GFR 1.22 MG/DL (0.70-1.30); GLOMERULAR FILTRATION RATE > 60.0 (>49); GLUCOSE, FASTING 39 MG/DL (70-100); MB/CK RELATIVE INDEX 1.53 (< OR =4); POTASSIUM SERUM 4.5 MEQ/L (3.5-5.1); SODIUM LEVEL 133 MEQ/L (136-145); THYROID STIMULATING HORMONE 0.521 uIU/ML (0.358-3.740); TOTAL PROTEIN 7.7 GM/DL (6.4-8.2); TROPONIN I < 0.02 NG/ML (< 0.10)
[2019-11-12] MEDS ORDERED: OXYC10TA12 PO (16:38)
[2019-11-12] MEDS ORDERED: PANT-23 PO (16:38)
[2019-11-12] MEDS ORDERED: GABA600T4 PO (16:38)
[2019-11-12] MEDS ORDERED: LISI-542 PO (16:38)
[2019-11-12] MEDS ORDERED: INSURSD SC (16:38)
[2019-11-12] MEDS ORDERED: INSUNSD SC (16:38)
[2019-11-12] MEDS ORDERED: ALBU8.5H INH (16:38)
[2019-11-12] MEDS ORDERED: MAGN50TA PO (16:38)
[2019-11-12] MEDS ORDERED: DULO1CAP6 PO (16:38)
[2019-11-12] MEDS ORDERED: INSUDET SC (16:38)
[2019-11-12] MEDS ORDERED: PRAV20TA2 PO (16:38)
--- NOTE | 2019-11-12 17:12 | REP ---
REASON: Cough and dyspnea. COMPARISON: 01/05/2019 The technique utilized in obtaining the radiograph has magnified the cardiac silhouette and accentuated the interstitial markings. Cardiomediastinal silhouette and lung fatima are unchanged. No acute patchy parenchymal opacities or pleural effusions have developed. There is no change in the osseous structures. IMPRESSION: Stable-appearing chronic changes. The cardiac silhouette is magnified by technique. Mild cardiomegaly cannot be excluded. There is evidence of fibrotic change. Electronically Signed by Wicho Dumont DO 11/13/2019 08:59 A
--- NOTE | 2019-11-12 17:16 | REP ---
RIGHT FOOT, FOUR VIEWS: Four views, right foot performed. No fracture is seen, and there is no evidence of osseous destruction or periosteal reaction. There are no definite radiographic signs of osteomyelitis. There is mild posterior calcaneal spurring. There is mild narrowing at the talonavicular joint. IMPRESSION: No radiographic signs of fracture or osteomyelitis. Electronically Signed by Luther Meza MD 11/13/2019 09:34 A
[2019-11-12] MEDS: HumaLOG INSULIN (NovoLOG) PER UNIT SC SCH ×2 (17:30→21:00)
[2019-11-12] MEDS ORDERED: SODIUM CHLORIDE 0.9% 1000ML IV SCH (17:30)
[2019-11-12] MEDS ORDERED: GLUCAGON INJ 1MG VIAL SC PRN (17:45)
[2019-11-12] MEDS ORDERED: DEXTROSE 50% 50 ML SYRINGE IV PRN (17:45)
[2019-11-12] MEDS ORDERED: ALBUTEROL 90 MCG/ACT 8GM HFA INHALER INH PRN (17:45)
[2019-11-12] MEDS ORDERED: ACETAMINOPHEN TAB 650MG DOSE (2X325MG) PO ONE (17:45)
[2019-11-12] MEDS ORDERED: GLUCOSE 4GM CHEW TABLET PO PRN (17:45)
--- NOTE | 2019-11-12 18:03 | HPEPDOC ---
General Date of Admission 11/12/19 Date of Service: Nov 12, 2019 Chief Complaint The patient is a 64-year-old male admitted with a reason for visit of Rt Foot open wound. Source: Patient Exam Limitations: No limitations Timing/Duration: Week(s) Severity: Moderate History of Present Illness Patient 64 years old male with past medical history of type 2 diabetes, neuropathy, chronic kidney diseases, peripheral vascular diseases, chronic wounds of his legs followed by Dr. Powers presented to the hospital with increased shakiness and fever. Patient stated that recently he had debridement of the dorsum of right foot, it was done by . Today patient stated that he developed chills and fever. In emergency room patient was found to have increased leukocytes count of 17, fever of 101.5, creatinine 1.2, C-reactive protein 19, lactic acid 1.4. On the dorsum of his foot large unstageable wound 5X4 centimeters with foul odor. Patient received IV vancomycin and Zosyn. Home Medications Scheduled Amlodipine Besylate (Amlodipine Besylate) 10 Mg Tablet, 10 MG PO DAILY, (Reported) Apixaban (Eliquis) 5 Mg Tablet, 5 MG PO BID, (Reported) Aspirin (Aspir 81) 81 Mg Tablet.dr, 81 MG PO QHS, (Reported) Duloxetine Hcl (Duloxetine HCl) 60 Mg Capsule.dr, 60 MG PO DAILY, (Reported) Fentanyl (Fentanyl) 100 Mcg Patch.td72, 100 MCG TOP Q3D, (Reported) CURRENTLY APPLIED TO STOMACH Gabapentin (Gabapentin) 600 Mg Tablet, 600 MG PO TID, (Reported) Glipizide (Glipizide ER) 10 Mg Tab.er.24, 10 MG PO DAILY, (Reported) Insulin Detemir (Levemir) 100 Unit/1 Ml Vial, 60 UNITS SC BID, (Reported) Insulin Human NPH (Humulin N) 100 Unit/1 Ml Vial, 66 UNITS SQ QAM, (Reported) Insulin Human NPH (Humulin N) 100 Unit/1 Ml Vial, 77 UNITS SC QPM, (Reported) Insulin Human Regular (Humulin R) 100 Unit/1 Ml Vial, 36 UNITS SQ BID, (Reported) BREAKFAST AND LUNCH Insulin Human Regular (Humulin R) 100 Unit/1 Ml Vial, 38 UNITS SC QPM, (Reported) Latanoprost (Xalatan) 0.005% 2.5ML Drops, 1 DROP OU QHS, (Reported) Lisinopril (Lisinopril) 5 Mg Tablet, 5 MG PO DAILY, (Reported) Magnesium Gluconate (Mag-G) 27 Mg Tablet, 500 MG PO DAILY, (Reported) Metoprolol Tartrate (Metoprolol Tartrate) 25 Mg Tablet, 25 MG PO BID, (Reported) Multivitamins (Thera M Plus Tablet) 1 Each Tablet, 1 TAB PO DAILY, (Reported) Niacin (Niacor) 500 Mg Tablet, 1,000 MG PO QHS, (Reported) [place]-3 Fatty Acids/Fish Oil (Fish Oil 1,000 mg Capsule) 1 Each Capsule, 1,000 MG PO DAILY, (Reported) Pantoprazole Sodium (Pantoprazole Sodium) 40 Mg Tablet.dr, 40 MG PO DAILY, (Reported) Pravastatin Sodium (Pravastatin Sodium) 20 Mg Tablet, 20 MG PO QHS, (Reported) Salmeterol (Serevent Diskus) 50 Mcg Blst.w.dev, 1 PUFF INH BID, (Reported) Scheduled PRN Albuterol Sulfate (Albuterol Sulfate Hfa) 8.5 Gm Hfa.aer.ad, 2 PUFF INH QID PRN for SHORTNESS OF BREATH, (Reported) Docusate Sodium (Colace) 100 Mg Capsule, 100 MG PO BID PRN for CONSTIPATION, (Reported) Oxycodone HCl (Oxycodone HCl) 10 Mg Tablet, 10 MG PO QID PRN for PAIN, (Reported) MAY TAKE ONE TO TWO TABS Allergies Coded Allergies: TAPE (Verified Allergy, Mild, RASH/BLISTERS, 08/15/19) No Known Drug Allergies (Verified Allergy, Unknown, 08/15/19) Past Medical History Medical History 1. Charcot foot 2. Insulin-dependent diabetes. 3. Chronic diabetic foot ulcer. 4. Peripheral arterial disease with numerous stents. 5. Diabetic neuropathy. 6. Hypertension. 7. Dyslipidemia. 8. Coronary arterial disease with stents. 9. Osteoarthritis of the hip. 10. Chronic anemia. 11. CLAUDIA does not use his CPAP 12. Peripheral venous insufficiency in both lower extremities, 13. left lower extremity chronic slow healing wounds. Afib Surgical History 1. Cardiac stents 2001 2. C6 corpectomy and C5-C6 fusion with fibular strut graft and anterior cervical plate in 2002 3. Left big toe amputation 2012 4. Melanoma of left eyelid removal 1998 5. Rotator cuff surgery. 6. Bilateral common and external iliac artery angioplasty and stenting 7. Left superficial femoral artery angioplasty and stenting Family History Father from cancer. Mother still alive Social History * Smoker: former Smoker Alcohol: Denies Drugs: denies A-FIB/CHADSVASC A-FIB History Current/History of A-Fib/PAF?: No Current PO Anticoag Therapy: No Review of Systems Constitutional: Reports: Chills, Fever, Weakness Eyes: Denies: Pain ENT: Denies: Head Aches Skin: Reports: Rash, Lesions (right foot dorsum area) Pulmonary: Denies: Dyspnea Cardiovascular: Denies: Chest Pain Gastrointestinal: Denies: Nausea, Vomiting Genitourinary: Denies: Dysuria, Frequency Hematologic: Denies: Bruising Endocrine: Denies: Polydipsia Musculoskeletal: Denies: Neck Pain Neurological: Denies: Weakness Psych: Reports: Mood Normal Physical Examination General Exam: Positive: Alert, Cooperative Eye Exam: Positive: PERRLA ENT Exam: Positive: Atraumatic Neck Exam: Positive: Supple; Negative: JVD Chest Exam: Positive: Clear to auscultation Heart Exam: Positive: Tachycardic Telemetry: Positive: Tachycardia Abdomen Exam: Positive: Normal bowel sounds Extremity Exam: Positive: Clubbing; Negative: Cyanosis Skin Exam: Positive: Other skin issue (large wound on the dorsum of his right foot , unstageable,5X4 cm) Neuro Exam: Positive: Cranial Nerves 3-12 NL, Reflexes 2+ Psych Exam: Positive: Mental status NL Vital Signs Vital Signs Date Time Temp Pulse Resp B/P (MAP) Pulse Ox O2 Delivery O2 Flow Rate FiO2 11/12/19 17:37 101.5 11/12/19 15:49 11/12/19 15:19 114 22 95 Room Air Laboratory Data Labs 24H Laboratory Tests 2 11/12/19 15:35: Immature Granulocyte % (Auto) 0.9, Neutrophils (%) (Auto) 85.0H, Lymphocytes (%) (Auto) 3.7L, Monocytes (%) (Auto) 9.9H, Eosinophils (%) (Auto) 0.2, Basophils (%) (Auto) 0.3, Neutrophils # (Auto) 14.9H, Lymphocytes # (Auto) 0.7L, Monocytes # (Auto) 1.7H, Eosinophils # (Auto) 0.0, Basophils # (Auto) 0.1, Nucleated Red Blood Cells % (auto) 0.0, Erythrocyte Sedimentation Rate 13, Prothrombin Time 17.1H, Prothromb Time International Ratio 1.42, Anion Gap 6L, Glomerular Filtration Rate > 60.0, Lactic Acid Level 1.4, Calcium Level 8.8, Total Bilirubin 0.4, Direct Bilirubin 0.2, Aspartate Amino Transf (AST/SGOT) 28, Alanine Aminotransferase (ALT/SGPT) 34, Alkaline Phosphatase 76, Total Creatine Kinase 261, Creatine Kinase MB 4.0H, Creatine Kinase MB Relative Index 1.53, Troponin I < 0.02, C-Reactive Protein, Quantitative 19.00H, Total Protein 7.7, Albumin 2.5L, Albumin/Globulin Ratio 0.48L, Thyroid Stimulating Hormone (TSH) 0.521 CBC/BMP Laboratory Tests 11/12/19 15:35 Microbiology Microbiology 11/12/19 Blood Culture, Received Pending 11/12/19 Blood Culture, Received Pending Assessment/Plan Patient 64 years old male with past medical history of type 2 diabetes, neuropathy, chronic kidney diseases, peripheral vascular diseases, chronic wounds of his legs followed by Dr. Powers presented to the hospital with increased shakiness and fever. Patient stated that recently he had debridement of the dorsum of right foot, it was done by . Today patient stated that he developed chills and fever. In emergency room patient was found to have increased leukocytes count of 17, fever of 101.5, creatinine 1.2, C-reactive protein 19, lactic acid 1.4. On the dorsum of his foot large unstageable wound 5X4 centimeters with foul odor. Patient received IV vancomycin and Zosyn. Problems (1) Sepsis Status: Acute Problem Text: Secondary to unstageable infected wound of the dorsum of the right foot. Most likely patient developed osteomyelitis Blood culture Zosyn IV, Vanco IV IV fluid MRI Appreciate/agree with [employer] systems administrator consult (2) Wound of right foot Problem Text: See above (3) Diabetic polyneuropathy Status: Chronic Problem Text: Continue gabapentin (4) Afib Status: Chronic Problem Text: Patient is tachycardic secondary to sepsis Continue cardioprotective medication I will hold anticoagulation due to possible surgical procedure (5) Diabetes Status: Chronic Problem Text: Diabetes diet Detemir twice a day Insulin sliding scale Plan / VTE VTE Prophylaxis Ordered?: Yes ABBI MURILLO DO Nov 12, 2019 18:03
[2019-11-12] MEDS: LEVEMIR (INSULIN DETEMIR) 1 UNITS/0.01ML SC SCH (21:00)
[2019-11-12] MEDS ORDERED: VANCOMYCIN HCL 1,000 MG, VIAL MATE ADAPTER 1 EACH in D5W 250 ML IV SCH (21:00)
[2019-11-12] MEDS ORDERED: PROHANCE 279.3MG/ML 5ML VIAL As Ordered ONE (21:18)
[2019-11-12] MEDS ORDERED: PROHANCE 279.3MG/ML 15ML VIAL As Ordered ONE (21:18)
[2019-11-12 21:53] VITALS: BP 146/80
[2019-11-12] MEDS: GABAPENTIN 300 MG CAP PO SCH (22:50)
[2019-11-12] MEDS: ASPIRIN 81 MG ENTERIC TAB PO SCH (22:50)
[2019-11-12] MEDS: PRAVASTATIN 20 MG TAB PO SCH (22:50)
[2019-11-12] MEDS: METOPROLOL TART 25 MG TABLET PO SCH (22:50)
[2019-11-12] MEDS: NS 1,000 ML IV SCH (22:50)
[2019-11-12 23:59] VITALS: BP 120/82
[2019-11-13] MEDS: PIPERACILLIN/TAZOBACTAM SOD 3.375 GM in D5W MINI-BAG PLUS 50 ML IV SCH ×3 (00:30→15:58)
[2019-11-13] MEDS: NS 1,000 ML IV SCH (03:06)
[2019-11-13 04:00] VITALS: BP 146/70
[2019-11-13 04:57] LABS: HEMATOCRIT 34.2 % (42.0-52.0); HEMOGLOBIN 9.9 g/dl (13.5-17.5); MEAN CORPUSCULAR HEMOGLOBIN 23.2 pg (27.0-33.0); MEAN CORPUSCULAR HGB CONC 28.9 g/dl (32.0-36.5); MEAN CORPUSCULAR VOLUME 80.1 fl (80.0-96.0); PLATELET COUNT, AUTOMATED 278 10^3/uL (150-450); RED BLOOD COUNT 4.27 10^6/uL (4.30-6.10); WHITE BLOOD COUNT 13.9 10^3/uL (4.0-10.0)
[2019-11-13 05:19] LABS: ALT/SGPT 29 U/L (12-78); BILIRUBIN,TOTAL 0.4 MG/DL (0.2-1.0); BLOOD UREA NITROGEN 17 MG/DL (7-18); CALCIUM LEVEL 8.4 MG/DL (8.8-10.2); CARBON DIOXIDE LEVEL 30 MEQ/L (21-32); CHLORIDE LEVEL 100 MEQ/L (98-107); CREATININE FOR GFR 1.04 MG/DL (0.70-1.30); GLOMERULAR FILTRATION RATE > 60.0 (>49); GLUCOSE, FASTING 97 MG/DL (70-100); MAGNESIUM LEVEL 1.7 MG/DL (1.8-2.4); POTASSIUM SERUM 4.4 MEQ/L (3.5-5.1); SODIUM LEVEL 135 MEQ/L (136-145); TOTAL PROTEIN 6.4 GM/DL (6.4-8.2)
[2019-11-13] MEDS: HumaLOG INSULIN (NovoLOG) PER UNIT SC SCH ×4 (07:30→21:02)
[2019-11-13 08:00] VITALS: BP 127/67
[2019-11-13] MEDS: PANTOPRAZOLE 40MG TAB (PROTONIX) PO SCH (08:30)
[2019-11-13] MEDS: METOPROLOL TART 25 MG TABLET PO SCH ×2 (08:31→21:04)
[2019-11-13] MEDS: amLODIPine 10 MG TAB PO SCH (08:31)
[2019-11-13] MEDS: GABAPENTIN 300 MG CAP PO SCH ×3 (08:31→21:04)
[2019-11-13] MEDS: DULoxetine 30 MG CAP (CYMBALTA) PO SCH (08:31)
[2019-11-13] MEDS: MAGNESIUM GLUCONATE 500 MG TAB PO SCH (08:31)
[2019-11-13] MEDS: lisinopriL 5 MG TAB PO SCH (08:31)
[2019-11-13] MEDS: oxyCODONE 5MG TAB PO PRN (08:51)
--- NOTE | 2019-11-13 08:54 | REPVR ---
PROCEDURE INFORMATION: Exam: MR Right Lower Extremity Other Than Joint Without and With Contrast; Foot Exam date and time: 11/12/2019 9:22 PM Age: 64 years old Clinical indication: Condition or disease; Other: Osteomyelitis TECHNIQUE: Imaging protocol: MR of the Right lower extremity without and with intravenous contrast. Exam focused on the foot. Contrast material: PROHANCE; Contrast volume: 20 ml; Contrast route: IV; COMPARISON: MRI FOOT WITHOUT CONTRAST 10/17/2017 8:36 PM FINDINGS: Bones and cartilage: Findings submitted for interpretation 11/13/2019 7:38 a.m. HOMEBOUND TEACHER . Motion degradation. Abnormal signal within the 1st cuneiform bone with equivocal and likely signal abnormality of the middle cuneiform and likely abnormal signal of the 1st metatarsal bone and likely 2nd metatarsal bone concerning for osteomyelitis. Joint spaces: Unremarkable. No joint effusion. LIGAMENTS: Lisfranc ligament: Unremarkable. No evidence of tear. TENDONS: Flexor tendons of foot: See "Peroneal tendons" finding. Tibialis posterior tendon: See discussion below. Peroneal tendons: Enhancement surrounding anterior and peroneal tendons suggestive of tenosynovitis. There is enhancement of posterior tibial and flexor digitorum longus tendons as well as flexor hallucis longus tendon also concerning for tenosynovitis which could be septic or aseptic. Abnormal signal within the substance of flexor hallucis longus tendon suggest intrasubstance tear at the level of the calcaneus. Extensor tendons of foot: Unremarkable. No evidence of tear. Tibialis anterior tendon: Unremarkable as visualized. Tarsal canal (Sinus tarsi): Grossly unremarkable. Tarsal tunnel: Grossly unremarkable. Soft tissues: Presumably prominent focal soft tissue defect or ulceration versus prominent focal artifact of the dorsum of the foot at the level of tarsal region. Soft tissue edema or cellulitis. Plantar fascia: Unremarkable as visualized. IMPRESSION: 1. Markedly limited examination by motion degradation. 2. Possible significant soft tissue artifact versus soft tissue disruption or ulceration of the dorsum of the foot at the level of the tarsal region. 3. Underlying soft tissue edema or cellulitis. 4. Signal abnormality within the medial cuneiform bone and 1st metatarsal bone would be concerning for osteomyelitis. 5. There is also signal abnormality of the middle cuneiform bone and 2nd metatarsal bone concerning for osteomyelitis. 6. Suspect tenosynovitis of peroneal, anterior and medial tendons. 7. Suspect tear of flexor hallucis longus tendon at the calcaneal level.. Electronically signed by: Ellen Pratt On 11/13/2019 08:53:56 AM
[2019-11-13] MEDS ORDERED: HEPARIN SOD (PORCINE) 5000UNITS/ML VIAL (J1644 PER 1000UNITS) SC SCH (09:00)
[2019-11-13] MEDS ORDERED: MAGNESIUM CHLORIDE 64 MG TABCR (SLO MAG) PO SCH (09:00)
[2019-11-13] MEDS ORDERED: MIDAZOLAM INJ 2MG/2ML VIAL (J2250 PER 1MG) As Ordered ONE (09:47)
[2019-11-13] MEDS ORDERED: dexameTHASONE 4 MG/ML 1ML VIAL (J1100 PER 1MG) As Ordered ONE (09:47)
[2019-11-13] MEDS ORDERED: ONDANSETRON 4MG/2ML VIAL As Ordered ONE ×2 (09:47→11:48)
[2019-11-13] MEDS ORDERED: fentaNYL 100 MCG/2 ML INJECTION (J3010) As Ordered ONE ×2 (09:47→11:48)
[2019-11-13] MEDS ORDERED: propofoL 200 MG/20 ML VIAL As Ordered ONE (09:47)
[2019-11-13] MEDS ORDERED: LIDOCAINE 2% 100MG/5ML SDV (FOR ANES.) As Ordered ONE (09:47)
--- NOTE | 2019-11-13 10:26 | CR ---
DATE OF CONSULTATION: 11/12/2019 REASON FOR CONSULTATION: Right foot wound. Aurelio Alex is a 64-year-old male who is admitted to the emergency room (ER) with worsening of a right foot wound. He has chronic ulcerations on both lower extremities. He states the one on the right foot has been open approximately 1 month. He has had recent debridement from Dr. Powers with whom he has been following for the wound. He states that the wound over the last day or two has been progressively worsening, and he states he feels it is infected. He has had infections on the left foot, ultimately requiring partial foot amputation. He has history of peripheral vascular disease. He was seen by a vascular surgeon, Dr. Harris, but has not had any recent vascular followup. PAST MEDICAL HISTORY: Is significant for Charcot foot diabetes with neuropathy, peripheral artery disease status post stenting, hypertension, hyperlipidemia, coronary artery disease with stenting, osteoarthritis of hip, chronic anemia, obstructive sleep apnea. PAST SURGICAL HISTORY: Includes cardiac stents, cervical fusion, left hallux amputation, history of melanoma removal, rotator cuff surgery, lower extremity stenting, and angioplasties. SOCIAL HISTORY: Former smoker. Denies alcohol use. REVIEW OF SYSTEMS: Positive for fevers, maximum temperature (Tmax) 101.5. LABORATORIES: Are reviewed. White blood cell count is 17.5, ESR is 13, CRP is 19. Foot x-ray is reviewed. Some lucency consistent with the wound. No soft tissue . No significant signs suggestive of osteomyelitis. LOWER EXTREMITY EXAMINATION: Pedal pulses are nonpalpable. There is a large ulceration on the dorsal right foot with significant necrotic tissue and malodor. There is exposed tendon, and there is local erythema. There is ulceration on the left posterior ankle and calf with relatively granular wound base without other signs of infection. ASSESSMENT: A 64-year-old diabetic male with peripheral vascular disease with right foot infected ulceration. PLAN: Will bring him to the operating room for operative debridement tomorrow. He has been started on empiric antibiotics. Will take wound cultures in operating room (OR). He should have some vascular studies performed while he is in the hospital with possible evaluation of his vascular status by vascular surgery pending these results. Thank you for consultation. Will follow.
[2019-11-13] MEDS ORDERED: BUPIVACAINE HCL 0.5% 10ML VIAL As Ordered ONE (10:34)
[2019-11-13] MEDS ORDERED: LIDOCAINE 1% MDV 20ML VIAL As Ordered ONE (10:34)
[2019-11-13] MEDS ORDERED: ONDANSETRON 4MG/2ML VIAL IV PRN (11:45)
[2019-11-13] MEDS ORDERED: METOCLOPRAMIDE INJ 10MG/2ML VIAL (J2765 PER 1) IV PRN (11:45)
[2019-11-13] MEDS ORDERED: LR 1,000 ML IV SCH (11:45)
[2019-11-13] MEDS ORDERED: PERCOCET 5MG/325MG TAB As Ordered ONE ×2 (11:48→12:19)
[2019-11-13] MEDS: PERCOCET 5MG/325MG TAB PO PRN ×2 (11:53→12:25)
[2019-11-13] MEDS: fentaNYL 100 MCG/2 ML INJECTION (J3010) IV PRN ×2 (12:13→12:20)
[2019-11-13] MEDS ORDERED: ALBUTEROL SULFATE 2.5 MG/0.5 ML INH NEB SOLN As Ordered ONE (12:45)
[2019-11-13] MEDS ORDERED: ALBUTEROL SULFATE 2.5 MG/0.5 ML INH NEB SOLN INH ONE (13:00)
[2019-11-13] MEDS: LEVEMIR (INSULIN DETEMIR) 1 UNITS/0.01ML SC SCH ×2 (13:39→21:03)
--- NOTE | 2019-11-13 13:40 | IPNPDOC ---
Text Note Date of Service The patient was seen on 11/13/19. NOTE Subjective: No any acute events overnight. Patient stated that his fever reso lved. Objective: VITAL SIGNS: Please see below. GENERAL: awake, alert, NAD HEENT: NCAT, anicteric sclera, RIKKI NECK: supple, no JVD CARDIOVASCULAR EXAMINATION: NS1S2 RESPIRATORY EXAMINATION: CTA b/l, no wheezes/rales/rhonchi ABDOMINAL EXAMINATION: positive bowel sounds x 4, NT EXTREMITIES: no cyanosis, no edema, right foot covered with dressing NEUROLOGICAL EXAMINATION: AAO x 3, no motor/sensory deficits PSYCHIATRIC EXAMINATION: calm, normal affect Assessment/Plan Patient 64 years old male with past medical history of type 2 diabetes, neuropathy, chronic kidney diseases, peripheral vascular diseases, chronic wounds of his legs followed by Dr. Powers presented to the hospital with inc reased shakiness and fever. Patient stated that recently he had debridement of the dorsum of right foot, it was done by . Today patient stated that he developed chills and fever. In emergency room patient was found to have increased leukocytes count of 17, fever of 101.5, creatinine 1.2, C-reactive protein 19, lactic acid 1.4. On the dorsum of his foot large unstageable wound 5X4 centimeters with foul odor. Patient received IV vancomycin and Zosyn. On 11/12/29 dinkey engine firer/fireman team proceeded with debridement. Problems (1) Sepsis Fever, leucocytosis on the admission Secondary to unstageable infected wound of the dorsum of the right foot. Most likely patient developed osteomyelitis Blood culture pending Zosyn IV, Vanco IV IV fluid MRI positive for osteomyelitis On 11/12/29 dinkey engine firer/fireman team proceeded with debridement (2) Wound of right foot Problem Text: See above (3) Diabetic polyneuropathy Continue gabapentin (4) Afib HR is under control Continue cardioprotective medication c/w anticoagulation (5) Diabetes Diabetes diet Detemir twice a day Insulin sliding scale VS,Fishbone, I+O VS, Fishbone, I+O Laboratory Tests 11/12/19 15:35 11/13/19 04:25 Vital Signs Date Time Temp Pulse Resp B/P (MAP) Pulse Ox O2 Delivery O2 Flow Rate FiO2 11/13/19 13:03 97.4 77 20 121/60 (80) 92 Nasal Cannula 2 I&O- Last 24 Hours up to 6 AM 11/13/19 06:00 Intake Total 1580 ml Output Total 900 ml Balance 680 ml ABBI MURILLO DO Nov 13, 2019 13:40
[2019-11-13] MEDS: VANCOMYCIN HCL 1,000 MG, VIAL MATE ADAPTER 1 EACH in D5W 250 ML IV SCH ×2 (13:44→17:44)
[2019-11-13] MEDS ORDERED: SLF 3 ML SYR IV PRN (14:30)
[2019-11-13 16:00] VITALS: BP 127/54
--- NOTE | 2019-11-13 16:39 | ECGEPIP ---
[facility] - ED Test Date: 2019-11-12 Pat Name: DIANA OLIVERA Department: Room: - Gender: Male Traveling Clerk: : 1955 Requested By: CEDRIC Gallo Order Number: [id number] Reading MD: Marry Rai Measurements Intervals Cutler Rate: 108 P: 44 AL: 174 QRS: -29 QRSD: 89 T: 57 QT: 296 QTc: 397 Interpretive Statements SINUS TACHYCARDIA WITH OCCASIONAL SUPRAVENTRICULAR PREMATURE COMPLEXES BORDERLINE LEFT AXIS DEVIATION ABNORMAL RHYTHM ECG RIGHT VENTRICULAR CONDUCTION DELAY Electronically Signed on 11-13-2019 16:39:41 EDT by Marry Rai
[2019-11-13 20:00] VITALS: BP 134/72
[2019-11-13] MEDS: SLF 3 ML SYR IV SCH (21:03)
[2019-11-13] MEDS: ASPIRIN 81 MG ENTERIC TAB PO SCH (21:03)
[2019-11-13] MEDS: APIXABAN 5 MG TAB (ELIQUIS) PO SCH (21:04)
[2019-11-13] MEDS: PRAVASTATIN 20 MG TAB PO SCH (21:04)
[2019-11-14] VITALS: BP 130/64
[2019-11-14] MEDS: PIPERACILLIN/TAZOBACTAM SOD 3.375 GM in D5W MINI-BAG PLUS 50 ML IV SCH ×4 (00:12→23:50)
[2019-11-14] MEDS: VANCOMYCIN HCL 1,000 MG, VIAL MATE ADAPTER 1 EACH in D5W 250 ML IV SCH ×3 (01:23→20:35)
--- NOTE | 2019-11-14 03:04 | ECHO ---
DATE OF PROCEDURE: 11/13/2019 HEIGHT: 180 cm WEIGHT: 108 kg REFERRING PHYSICIAN: Dr. Robert Parker INDICATION: Sepsis. 2D MEASUREMENTS: Left atrium: 4.2 cm Ventricular septum: 0.97 cm Posterior wall: 1.01 cm Left ventricle diastole: 5.5 cm Aortic annulus: 2.2 cm Inferior vena cava: 2.3 cm DOPPLER MEASUREMENTS: Mild aortic stenosis. No aortic regurgitation. Aortic valve velocity: 232 cm/s Peak aortic valve gradient: 23 mmHg Mean aortic valve gradient: 11 mmHg Aortic valve VTI: 51.4 cm LVOT velocity: 96.6 cm/s LVOT VTI: 21.0 cm Trace mitral regurgitation. Mitral E velocity: 116 cm/s Mitral A velocity: 108 cm/s Mitral deceleration time: 193 ms No tricuspid regurgitation. No pulmonic regurgitation. Pulmonary acceleration time: 116 ms MITRAL ANNULAR TISSUE DOPPLER: E prime septal: 6.5 cm/s E prime lateral: 83 cm/s DESCRIPTION: Rhythm was sinus. This was a moderately technically difficult echocardiogram. The study was performed with the patient supine. This was a 2D, M-mode, color flow Doppler, and pulse wave Doppler examination and included mitral annular tissue Doppler. CONCLUSIONS: 1. No vegetations identified on any of the cardiac valves. 2. Moderate focal thickening and calcification of a three-cuspid aortic valve. Mild reduction in aortic cusp mobility. Mild aortic stenosis. No aortic regurgitation. 3. Moderate mitral annular calcification. No mitral stenosis. Trace mitral regurgitation. 4. Normal left ventricle internal dimensions and wall thickness. Normal regional left ventricle (LV) wall motion and wall thickening. Normal LV systolic function. Grade 2 LV diastolic dysfunction (pseudonormal LV filling pattern). 5. Otherwise, normal appearing echocardiogram Doppler findings.
[2019-11-14 04:00] VITALS: BP 126/66
[2019-11-14] MEDS: SLF 3 ML SYR IV SCH ×3 (05:27→20:37)
[2019-11-14 06:11] LABS: HEMATOCRIT 34.4 % (42.0-52.0); HEMOGLOBIN 10.1 g/dl (13.5-17.5); MEAN CORPUSCULAR HEMOGLOBIN 23.8 pg (27.0-33.0); MEAN CORPUSCULAR HGB CONC 29.4 g/dl (32.0-36.5); MEAN CORPUSCULAR VOLUME 80.9 fl (80.0-96.0); PLATELET COUNT, AUTOMATED 305 10^3/uL (150-450); RED BLOOD COUNT 4.25 10^6/uL (4.30-6.10); WHITE BLOOD COUNT 15.4 10^3/uL (4.0-10.0)
[2019-11-14 06:23] LABS: BLOOD UREA NITROGEN 22 MG/DL (7-18); CALCIUM LEVEL 8.6 MG/DL (8.8-10.2); CARBON DIOXIDE LEVEL 26 MEQ/L (21-32); CHLORIDE LEVEL 101 MEQ/L (98-107); CREATININE FOR GFR 1.06 MG/DL (0.70-1.30); GLOMERULAR FILTRATION RATE > 60.0 (>49); GLUCOSE, FASTING 258 MG/DL (70-100); MAGNESIUM LEVEL 1.9 MG/DL (1.8-2.4); POTASSIUM SERUM 5.3 MEQ/L (3.5-5.1); SODIUM LEVEL 133 MEQ/L (136-145)
[2019-11-14] MEDS: HumaLOG INSULIN (NovoLOG) PER UNIT SC SCH ×4 (07:49→20:16)
[2019-11-14 08:00] VITALS: BP 135/63
[2019-11-14] MEDS: PANTOPRAZOLE 40MG TAB (PROTONIX) PO SCH (09:31)
[2019-11-14] MEDS: LEVEMIR (INSULIN DETEMIR) 1 UNITS/0.01ML SC SCH ×2 (09:31→20:36)
[2019-11-14] MEDS: METOPROLOL TART 25 MG TABLET PO SCH ×2 (09:32→20:37)
[2019-11-14] MEDS: MAGNESIUM GLUCONATE 500 MG TAB PO SCH (09:32)
[2019-11-14] MEDS: GABAPENTIN 300 MG CAP PO SCH ×3 (09:32→20:36)
[2019-11-14] MEDS: APIXABAN 5 MG TAB (ELIQUIS) PO SCH ×2 (09:32→20:37)
[2019-11-14] MEDS: amLODIPine 10 MG TAB PO SCH (09:32)
[2019-11-14] MEDS: DULoxetine 30 MG CAP (CYMBALTA) PO SCH (09:32)
[2019-11-14] MEDS: lisinopriL 5 MG TAB PO SCH (09:33)
[2019-11-14] MEDS: oxyCODONE 5MG TAB PO PRN ×3 (09:33→20:39)
[2019-11-14 12:00] VITALS: BP 140/67
--- NOTE | 2019-11-14 14:00 | IPNPDOC ---
Text Note Date of Service The patient was seen on 11/14/19. NOTE Subjective: No any acute events overnight. Patient stated that his fever reso lved. Patient tolerated debridement well Objective: VITAL SIGNS: Please see below. GENERAL: awake, alert, NAD HEENT: NCAT, anicteric sclera, RIKKI NECK: supple, no JVD CARDIOVASCULAR EXAMINATION: NS1S2 RESPIRATORY EXAMINATION: CTA b/l, no wheezes/rales/rhonchi ABDOMINAL EXAMINATION: positive bowel sounds x 4, NT EXTREMITIES: no cyanosis, no edema, right foot covered with dressing NEUROLOGICAL EXAMINATION: AAO x 3, no motor/sensory deficits PSYCHIATRIC EXAMINATION: calm, normal affect Assessment/Plan Patient 64 years old male with past medical history of type 2 diabetes, neuropathy, chronic kidney diseases, peripheral vascular diseases, chronic wounds of his legs followed by Dr. Powers presented to the hospital with increased shakiness and fever. Patient stated that recently he had debridement of the dorsum of right foot, it was done by . Today patient stated that he developed chills and fever. In emergency room patient was found to have increased leukocytes count of 17, fever of 101.5, creatinine 1.2, C-reactive protein 19, lactic acid 1.4. On the dorsum of his foot large unstageable wound 5X4 centimeters with foul odor. Patient received IV vancomycin and Zosyn. On 11/12/29 stonemason helper team proceeded with debridement. MRI showed right foot osteomyelitis Problems (1) Sepsis Fever, leucocytosis on the admission Secondary to unstageable infected wound of the dorsum of the right foot. Most likely patient developed osteomyelitis superimposed with advanced peripheral vascular diseases Blood culture pending Zosyn IV, Vanco IV MRI positive for osteomyelitis of right foot On 11/12/29 stonemason helper team proceeded with debridement Await bone culture Appreciate/agree with ID consult (2) Wound of right foot Problem Text: See above (3) Diabetic polyneuropathy Continue gabapentin (4) Afib HR is under control Continue cardioprotective medication c/w anticoagulation (5) Diabetes Diabetes diet Detemir twice a day Insulin sliding scale Peripheral vascular diseases Patient has a long history of Peripheral arterial and venous insufficiency with ulcerations in bilateral lower extremities left greater than right Appreciate/agree with vascular surgeon, no coverage today PT/OT VS,Fishbone, I+O VS, Fishbone, I+O Laboratory Tests 11/14/19 05:53 Vital Signs Date Time Temp Pulse Resp B/P (MAP) Pulse Ox O2 Delivery O2 Flow Rate FiO2 11/14/19 12:00 96.8 67 18 140/67 (91) 94 Room Air 11/13/19 13:03 2 I&O- Last 24 Hours up to 6 AM 11/14/19 06:00 Intake Total 1791 ml Output Total 1660 ml Balance 131 ml ABBI MURILLO DO Nov 14, 2019 14:00
--- NOTE | 2019-11-14 16:54 | RO ---
DATE OF PROCEDURE: 11/13/2019 PREPROCEDURE DIAGNOSIS: Right foot gangrene and infection. POSTPROCEDURE DIAGNOSIS: Right foot gangrene and infection. PROCEDURE: Right foot incision and drainage and wound debridement, excisional including necrotic tissue, tendon and bone. SURGEON: Mark Romano DPM GROCERY CASHIER: None. ANESTHESIA: Monitored anesthesia care. Preoperative injection of 15 mL of a 1:1 mixture of 1% lidocaine plain and 0.50% Marcaine plain. ESTIMATED BLOOD LOSS: 10 mL. MATERIALS: None. SPECIMEN: Right foot necrotic tissue, right foot necrotic tendon and right foot necrotic bone. COMPLICATIONS: None. CONDITION: Stable. Aurelio Alex is a 64-year-old male who was admitted to the hospital yesterday with right foot infection. He has chronic ulcerations and peripheral vascular disease to his right foot. He had worsening of his wound over the last week and was admitted. There was significant necrotic tissue and malodor, and the decision was made to bring him to the operating room for debridement. An MRI had been taken, which showed signs concerning for osteomyelitis of the medial cuneiform and first metatarsal bone, as well as the middle cuneiform and 2nd metatarsal bone. The patient's side and site were identified and marked in preoperative holding area. Consent was reviewed and obtained. All risks, complications and alternatives to the procedure were explained to the patient and indeed all questions were answered. Patient was explained that if the tendons were fully necrotic these would have to be removed, which would alter the function of his foot; he would not be able to move it up and down. DESCRIPTION OF PROCEDURE: The patient was brought to the operating room on a stretcher in supine position. Monitored anesthesia care was delivered by the anesthesia team. Preoperative injection of 15 mL of a 1:1 mixture of 1% lidocaine plain and 0.50% Marcaine plain were injected through the right foot. The foot was prepped and draped in the normal sterile fashion. No tourniquet was used during the procedure. The wound was inspected. There was significant necrotic black tissue at the dorsal and anterior right foot and ankle. There was necrotic tendon, which was black and dessicated, and there was some purulent drainage. Culture swabs were taken, aerobic and anaerobic, of the drainage. Following this, using a #10 blade, the necrotic tissue was debrided, the tendons knowing to be fully nonviable were resected as well and sent for pathology. The necrotic tissue was also sent. After the tendon and tissue was debrided, the bone was exposed. There was black nonviable bone. A portion of this was removed using an osteotome and mallet, and a piece of this was sent for culture and the rest was sent for pathology. Using a rongeur and a #15 blade, further debridement was performed until the majority of the necrotic tissue was removed. Bovie was used to cauterize small bleeding vessels. Following this, the site was irrigated with normal saline, and the wound was packed with saline-soaked gauze and Kerlix. The patient was brought to the post-anesthesia care unit (PACU), vital signs stable, neurovascular status intact. He will be readmitted to the floor. There are plans for consultation with infectious disease as well as with vascular surgery. The patient does have poor wound healing prospects given diabetes, peripheral vascular disease, and other comorbidities and may ultimately be required to have a leg amputation unless dramatic improvement to his blood flow could be achieved. Will follow.
[2019-11-14 20:00] VITALS: BP 128/66
[2019-11-14] MEDS: PRAVASTATIN 20 MG TAB PO SCH (20:36)
[2019-11-14] MEDS: ASPIRIN 81 MG ENTERIC TAB PO SCH (20:36)
[2019-11-15] VITALS: BP 132/66
[2019-11-15 04:00] VITALS: BP 131/70
[2019-11-15] MEDS: VANCOMYCIN HCL 1,000 MG, VIAL MATE ADAPTER 1 EACH in D5W 250 ML IV SCH (04:30)
[2019-11-15 05:05] LABS: HEMATOCRIT 35.5 % (42.0-52.0); HEMOGLOBIN 10.6 g/dl (13.5-17.5); MEAN CORPUSCULAR HGB CONC 29.9 g/dl (32.0-36.5); MEAN CORPUSCULAR VOLUME 80.3 fl (80.0-96.0); PLATELET COUNT, AUTOMATED 330 10^3/uL (150-450); RED BLOOD COUNT 4.42 10^6/uL (4.30-6.10); WHITE BLOOD COUNT 12.3 10^3/uL (4.0-10.0)
[2019-11-15] MEDS: SLF 3 ML SYR IV SCH ×3 (05:09→21:14)
[2019-11-15 05:25] LABS: BLOOD UREA NITROGEN 21 MG/DL (7-18); CALCIUM LEVEL 8.6 MG/DL (8.8-10.2); CARBON DIOXIDE LEVEL 35 MEQ/L (21-32); CHLORIDE LEVEL 102 MEQ/L (98-107); CREATININE FOR GFR 1.03 MG/DL (0.70-1.30); GLOMERULAR FILTRATION RATE > 60.0 (>49); GLUCOSE, FASTING 79 MG/DL (70-100); MAGNESIUM LEVEL 1.9 MG/DL (1.8-2.4); POTASSIUM SERUM 4.4 MEQ/L (3.5-5.1); SODIUM LEVEL 141 MEQ/L (136-145)
--- NOTE | 2019-11-15 07:02 | IPN ---
DATE: 11/14/2019 The patient is seen at bedside. He states no pain in his foot. Vitals are reviewed. He has remained afebrile. Labs are reviewed. White blood cell count is 15.4 and glucose this morning was 258. Gram stain is available. The wound swab culture shows gram negative rods, cocci in pairs, chains and clusters. The bone swab culture gram stain showed no organisms. Other cultures are all pending. Pathology is reviewed, showing acute necrotic inflammation of the tissue, the tendon and the bone that were all sent, confirming osteomyelitis. Lower Extremity Examination: Wound is much improved. There still remains some small nonviable tissue, mainly on the tissue margins. There is bone exposed. ASSESSMENT: 64-year-old, diabetic male with peripheral vascular disease status post bone debridement. PLAN: Infectious disease to be consulted. Would also consult vascular surgery while patient is in house as this wound is predominantly vascular in nature. Did discuss that patient may ultimately be required leg amputation if the wound is not able to have improved blood flow. He also does have a significant wound on his left side, although this at this time does not appear infected. Will follow.
[2019-11-15] MEDS: HumaLOG INSULIN (NovoLOG) PER UNIT SC SCH ×4 (07:30→21:13)
[2019-11-15 08:00] VITALS: BP 154/72
[2019-11-15] MEDS: LEVEMIR (INSULIN DETEMIR) 1 UNITS/0.01ML SC SCH (08:15)
[2019-11-15] MEDS: PIPERACILLIN/TAZOBACTAM SOD 3.375 GM in D5W MINI-BAG PLUS 50 ML IV SCH ×2 (08:25→15:49)
[2019-11-15] MEDS: APIXABAN 5 MG TAB (ELIQUIS) PO SCH ×2 (08:26→21:11)
[2019-11-15] MEDS: amLODIPine 10 MG TAB PO SCH (08:28)
[2019-11-15] MEDS: GABAPENTIN 300 MG CAP PO SCH ×3 (08:29→21:11)
[2019-11-15] MEDS: PANTOPRAZOLE 40MG TAB (PROTONIX) PO SCH (08:29)
[2019-11-15] MEDS: lisinopriL 5 MG TAB PO SCH (08:29)
[2019-11-15] MEDS: DULoxetine 30 MG CAP (CYMBALTA) PO SCH (08:30)
[2019-11-15] MEDS: METOPROLOL TART 25 MG TABLET PO SCH ×2 (08:30→21:12)
[2019-11-15] MEDS: fentaNYL 100 MCG/HR PATCH TOP SCH (08:31)
[2019-11-15] MEDS ORDERED: CALCITONIN NASAL SPRAY 3.7 ML BTL SCH (09:00)
[2019-11-15] MEDS ORDERED: oxyCODONE 5MG TAB PO ONE (09:00)
[2019-11-15] MEDS: MAGNESIUM GLUCONATE 500 MG TAB PO SCH (10:37)
--- NOTE | 2019-11-15 10:54 | REP ---
BILATERAL LOWER EXTREMITY DUPLEX DOPPLER ARTERIAL ULTRASOUND: Real-time sonographic evaluation and duplex Doppler interrogation of the bilateral lower extremity arterial systems is performed. The study is limited due to patient body habitus. There is diffuse plaquing bilaterally. Diffuse monophasic waveforms are seen throughout the right lower extremity. Biphasic and triphasic waveforms are seen throughout the left lower extremity. Given the monophasic waveforms in the right lower extremity, there may be a more proximal stenosis in the iliac system. There is no duplex Doppler sonographic evidence of hemodynamically significant stenosis in either common femoral artery, superficial femoral artery, or popliteal artery. Right Peak Left Peak Systolic Velocity Systolic velocity Common femoral artery 136.4 cm/s 104.4 cm/s Profunda 106.8 cm/s 68.3 cm/s Proximal SFA 81.2 cm/s 92.9 cm/s Mid SFA 117.5 cm/s 101.7 cm/s Distal SFA 190.9 cm/s 97.9 cm/s Popliteal 166.3 cm/s 120.2 cm/s Proximal TRISHA 47.6 cm/s 55.0 cm/s Tibial peroneal trunk 83.0 cm/s 118.1 cm/s Proximal PARLOR CHAPERONE 56.1 cm/s 58.5 cm/s Distal PARLOR CHAPERONE 59.0 cm/s not seen Distal TRISHA 62.2 cm/s not seen Electronically Signed by Luther Meza MD 11/15/2019 11:01 A
[2019-11-15 14:00] VITALS: BP 124/80
[2019-11-15] MEDS: oxyCODONE 5MG TAB PO PRN (16:14)
[2019-11-15] MEDS: LACTIC ACID 12% LOTION 225 GM BTL TOP SCH ×2 (16:15→21:13)
[2019-11-15] MEDS ORDERED: LEVEMIR (INSULIN DETEMIR) 1 UNITS/0.01ML SC SCH (21:00)
[2019-11-15] MEDS: PRAVASTATIN 20 MG TAB PO SCH (21:11)
[2019-11-15] MEDS: ASPIRIN 81 MG ENTERIC TAB PO SCH (21:11)
[2019-11-15 22:00] VITALS: BP 154/68
[2019-11-16] MEDS: PIPERACILLIN/TAZOBACTAM SOD 3.375 GM in D5W MINI-BAG PLUS 50 ML IV SCH ×3 (00:22→16:34)
[2019-11-16 06:00] VITALS: BP 150/77
[2019-11-16] MEDS: SLF 3 ML SYR IV SCH ×3 (06:17→20:46)
[2019-11-16 06:29] LABS: BLOOD UREA NITROGEN 19 MG/DL (7-18); CALCIUM LEVEL 8.8 MG/DL (8.8-10.2); CARBON DIOXIDE LEVEL 31 MEQ/L (21-32); CHLORIDE LEVEL 100 MEQ/L (98-107); CREATININE FOR GFR 1.16 MG/DL (0.70-1.30); GLOMERULAR FILTRATION RATE > 60.0 (>49); GLUCOSE, FASTING 189 MG/DL (70-100); MAGNESIUM LEVEL 1.8 MG/DL (1.8-2.4); POTASSIUM SERUM 4.5 MEQ/L (3.5-5.1); SODIUM LEVEL 137 MEQ/L (136-145)
[2019-11-16 06:33] LABS: HEMATOCRIT 40.3 % (42.0-52.0); HEMOGLOBIN 12.3 g/dl (13.5-17.5); MEAN CORPUSCULAR HEMOGLOBIN 23.9 pg (27.0-33.0); MEAN CORPUSCULAR HGB CONC 30.5 g/dl (32.0-36.5); MEAN CORPUSCULAR VOLUME 78.4 fl (80.0-96.0); PLATELET COUNT, AUTOMATED 392 10^3/uL (150-450); RED BLOOD COUNT 5.14 10^6/uL (4.30-6.10); WHITE BLOOD COUNT 11.1 10^3/uL (4.0-10.0)
[2019-11-16] MEDS: HumaLOG INSULIN (NovoLOG) PER UNIT SC SCH ×4 (07:30→20:45)
[2019-11-16] MEDS: oxyCODONE 5MG TAB PO PRN (08:02)
[2019-11-16] MEDS: GABAPENTIN 300 MG CAP PO SCH ×3 (09:34→20:43)
[2019-11-16] MEDS: PANTOPRAZOLE 40MG TAB (PROTONIX) PO SCH (09:34)
[2019-11-16] MEDS: DULoxetine 30 MG CAP (CYMBALTA) PO SCH (09:34)
[2019-11-16] MEDS: METOPROLOL TART 25 MG TABLET PO SCH ×2 (09:36→20:43)
[2019-11-16] MEDS: APIXABAN 5 MG TAB (ELIQUIS) PO SCH ×2 (09:37→20:43)
[2019-11-16] MEDS: lisinopriL 5 MG TAB PO SCH (09:37)
[2019-11-16] MEDS: LEVEMIR (INSULIN DETEMIR) 1 UNITS/0.01ML SC SCH ×2 (09:38→20:45)
[2019-11-16] MEDS: amLODIPine 10 MG TAB PO SCH (09:38)
[2019-11-16] MEDS: LACTIC ACID 12% LOTION 225 GM BTL TOP SCH ×2 (09:39→20:46)
[2019-11-16] MEDS ORDERED: oxyCODONE 5MG TAB PO ONE (10:00)
--- NOTE | 2019-11-16 10:04 | IPN ---
DATE: 11/15/2019 Patient has had no fever, chills. White is decreased 12.3 from 15. Pain is rated at 7/10. Vascular surgery is unavailable. Arterial Dopplers ordered without hemodynamically significant stenosis in bilateral common femoral, superficial femoral or popliteal arteries. Infectious disease (ID) consulted as well for chronic osteomyelitis. Currently with wound culture showing Proteus and Group B strep agalactiae. Temperature 97.4, pulse 90, respiratory rate 18, blood pressure 154/72. Generally, awake, alert, oriented times three, answering questions appropriately. Lungs are clear to auscultation. No wheezing, rales or rhonchi. Heart: S1, S2, sinus rhythm. No murmurs, rubs, gallops. Abdomen is soft, nontender, nondistended. Positive bowel sounds times four quadrants. Extremities: Patient has a dressing on right extremity. Left foot has big toe amputation, scaling and chronic venous stasis changes with brown barky appearance. Patient has ulceration of right foot and left posterior ankle and calf without any purulence. LABORATORY DATA: White count 12.3, hemoglobin 10, hematocrit 35, platelet count 330. Sodium 141, potassium 4.4, chloride 102, bicarbonate 35, BUN 21, creatinine 1.03, glucose of 79. Wound culture 11/13/2019: Proteus and Group B strep, sensitive to Levaquin, resistant to tigecycline. IMAGING STUDIES: Foot MRI 11/12/2019: Soft tissue edema or cellulitis at the level of the tarsal region, suspect tenosynovitis of peroneal, anterior medial tendons. Suspect tear of flexor hallucis longus tendon at the calcaneal level. ASSESSMENT AND PLAN: A 64-year-old male with a history of peripheral arterial disease, status post stenting by Dr. Harris and diabetes, hypertension, obesity, body mass index (BMI) of 33.3, Charcot foot, metabolic syndrome, dyslipidemia, coronary artery disease with stents, chronic anemia, obstructive sleep apnea (CLAUDIA), not on continuous positive airway pressure (CPAP), chronic left lower extremity nonhealing wound with left big toe amputation, coronary stents, C6 corpectomy and fusion surgery with anterior cervical plate placed in 2002, left superficial femoral artery angioplasty and stenting and bilateral common and external iliac artery angioplasty and stenting. Presented to the emergency room 11/12/2019 with right foot worsening infection and diabetic ulcer, admitted for diabetic infection, found to have osteomyelitis of the right foot with Proteus and Group B strep. CURRENT ISSUES: 1. First metatarsal questionable osteomyelitis with soft tissue cellulitis, currently on broad-spectrum antibiotics. Proteus and Group B strep noted on the wound culture of the right foot. Defer to infectious disease for de-escalation of antibiotics. Currently on vancomycin and Zosyn. Vascular surgery has been consulted for Monday. Arterial Dopplers are negative for any stenosis. 2. Type 2 diabetes, on sliding scale with holding parameters on patient's Levemir insulin, decrease to 50 units twice a day 3. Peripheral arterial disease. Vascular surgical consult on Monday. [facility]
[2019-11-16] MEDS: MAGNESIUM GLUCONATE 500 MG TAB PO SCH (12:02)
[2019-11-16 14:00] VITALS: BP 132/75
[2019-11-16] MEDS: PRAVASTATIN 20 MG TAB PO SCH (20:43)
[2019-11-16] MEDS: ASPIRIN 81 MG ENTERIC TAB PO SCH (20:44)
[2019-11-16 22:00] VITALS: BP 137/77
[2019-11-17] MEDS: PIPERACILLIN/TAZOBACTAM SOD 3.375 GM in D5W MINI-BAG PLUS 50 ML IV SCH ×4 (00:16→23:58)
[2019-11-17 05:14] LABS: HEMATOCRIT 42.8 % (42.0-52.0); HEMOGLOBIN 12.6 g/dl (13.5-17.5); MEAN CORPUSCULAR HEMOGLOBIN 23.3 pg (27.0-33.0); MEAN CORPUSCULAR HGB CONC 29.4 g/dl (32.0-36.5); MEAN CORPUSCULAR VOLUME 79.1 fl (80.0-96.0); PLATELET COUNT, AUTOMATED 369 10^3/uL (150-450); RED BLOOD COUNT 5.41 10^6/uL (4.30-6.10); WHITE BLOOD COUNT 11.2 10^3/uL (4.0-10.0)
[2019-11-17 05:36] LABS: BLOOD UREA NITROGEN 25 MG/DL (7-18); CALCIUM LEVEL 9.1 MG/DL (8.8-10.2); CARBON DIOXIDE LEVEL 29 MEQ/L (21-32); CHLORIDE LEVEL 103 MEQ/L (98-107); CREATININE FOR GFR 1.14 MG/DL (0.70-1.30); GLOMERULAR FILTRATION RATE > 60.0 (>49); GLUCOSE, FASTING 182 MG/DL (70-100); MAGNESIUM LEVEL 1.8 MG/DL (1.8-2.4); POTASSIUM SERUM 4.4 MEQ/L (3.5-5.1); SODIUM LEVEL 137 MEQ/L (136-145)
[2019-11-17] MEDS: SLF 3 ML SYR IV SCH ×3 (05:37→21:35)
[2019-11-17 06:00] VITALS: BP 137/75
[2019-11-17] MEDS: HumaLOG INSULIN (NovoLOG) PER UNIT SC SCH ×4 (07:30→21:00)
[2019-11-17] MEDS: DULoxetine 30 MG CAP (CYMBALTA) PO SCH (08:10)
[2019-11-17] MEDS: APIXABAN 5 MG TAB (ELIQUIS) PO SCH ×2 (08:10→21:34)
[2019-11-17] MEDS: amLODIPine 10 MG TAB PO SCH (08:13)
[2019-11-17] MEDS: oxyCODONE 5MG TAB PO PRN ×3 (08:14→21:39)
[2019-11-17] MEDS: MAGNESIUM GLUCONATE 500 MG TAB PO SCH (08:14)
[2019-11-17] MEDS: METOPROLOL TART 25 MG TABLET PO SCH ×2 (08:14→21:36)
[2019-11-17] MEDS: lisinopriL 5 MG TAB PO SCH (08:15)
[2019-11-17] MEDS: GABAPENTIN 300 MG CAP PO SCH ×3 (08:15→21:35)
[2019-11-17] MEDS: PANTOPRAZOLE 40MG TAB (PROTONIX) PO SCH (08:15)
[2019-11-17] MEDS: LACTIC ACID 12% LOTION 225 GM BTL TOP SCH ×2 (08:16→21:35)
[2019-11-17] MEDS: LEVEMIR (INSULIN DETEMIR) 1 UNITS/0.01ML SC SCH ×2 (08:48→21:35)
--- NOTE | 2019-11-17 10:21 | CR ---
DATE OF CONSULTATION: 11/15/2019 INFECTIOUS DISEASE CONSULTATION: We were asked to see Aurelio Alex for acute osteomyelitis. HISTORY OF PRESENT ILLNESS: Aurelio Alex is a 64-year-old male who presented to the emergency room due to worsening of a wound on the dorsal surface of his right foot. He states over the past 2 weeks he has developed this wound, which has grown in size, and becomes more erythematous with purulent drainage. He notes that the wound had been present for about a month and had been debrided by Dr. Powers previously. He has a history of wound infections in the left foot and required a partial foot amputation for this reason. He also notes he has a history of peripheral vascular disease and has had stent placement in the past by Dr. Harris. He denies any fevers, chills or night sweats. In the emergency room, the patient was found to be febrile with a leukocytosis. He was started on intravenous (IV) vancomycin and IV Zosyn for broad coverage. Dr. Romano was consulted and performed a debridement of the wound. REVIEW OF SYSTEMS: A 10-point review of systems is negative other than discussed in the history of the present illness. PAST MEDICAL HISTORY: Diabetes mellitus. Charcot foot. Peripheral neuropathy. Peripheral artery disease, status post stenting. Hypertension. Hyperlipidemia. Coronary artery disease, status post stenting. Osteoarthritis of the left hip. Obstructive sleep apnea (CLAUDIA), noncompliant with continuous positive airway pressure (CPAP). Chronic wounds on the left lower extremity. Atrial fibrillation. SURGICAL HISTORY: Cardiac stenting. C5-C6 fusion. Left big toe amputation. 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 Rotator cuff repair. Bilateral lower extremity angioplasty and stenting. FAMILY MEDICAL HISTORY: Noncontributory. SOCIAL HISTORY: Former smoker, smoked about a pack a day since he was age 13. No alcohol use in the past 10 years. No history of IV drug use. Lives at home with his . HOME MEDICATIONS: Include: - amlodipine 10 mg - Eliquis 5 mg twice a day - aspirin 81 mg - duloxetine 60 mg - Fentanyl patch 100 mcg every 3 days - gabapentin 600 mg three times a day - glipizide 10 mg - Levemir insulin 60 units twice a day - Humulin N 66 units in the morning - Humulin N 77 units at night - Humulin R 36 units twice a day with breakfast and lunch - Humulin R 38 units at night - lisinopril 5 mg - metoprolol tartrate 25 mg twice a day - niacin 500 mg - Protonix 40 mg - pravastatin 20 mg - salmeterol 50 mcg inhaled twice a day - oxycodone 10 mg four times a day as needed for pain ALLERGIES: No known drug allergies. PHYSICAL EXAMINATION: Vital Signs: Temperature 97.4, heart rate 90, respiratory rate 18, blood pressure 154/72, oxygen saturation 92% on room air. General: Patient is lying comfortably in bed in no acute distress. HEENT: Normocephalic, atraumatic. Sclerae anicteric. Conjunctivae clear. Moist mucous membranes. Neck: Supple. No lymphadenopathy noted. Lungs: Clear to auscultation bilaterally. No wheezing, rhonchi, or rales. Heart: Regular rate and rhythm. Normal S1 and S2. Holosystolic murmur heard over the lower sternal border. Abdomen: Soft, nontender, nondistended, obese, bowel sounds present, scratch samaniego over the abdomen. Extremities: No edema. Wound present on the dorsal surface of the right foot, measuring approximately 7.5 cm x 5.5 cm, no purulent discharge noted. There is some bone exposed. There are also two wounds on the posterior surface of the left calf without warmth, swelling, erythema, or purulent discharge. Neurologic: Alert and oriented, no focal deficit appreciated. LABORATORY DATA: White blood cell count 12.3, hemoglobin 10.6, hematocrit 35.5, platelet count 330, ESR 13. Sodium 141, potassium 4.1, chloride 102, bicarbonate 35, BUN 21, creatinine 1.03, glucose 79, CRP 19.0. Vancomycin trough 21.9. Methicillin-resistant Staphylococcus aureus (MRSA) PCR positive. Microbiology: Two blood cultures on 11/12/2019: Negative after 48 hours. Wound culture on 11/13/2019: Positive for moderate amount of Proteus mirabilis and a few group B strep. One wound culture on 11/13/2019 pending. Pathology report 11/13/2019: Positive for acute osteomyelitis of the right foot bone, gangrenous necrosis with acute inflammation of tissue. IMAGING: Foot MRI was limited due to motion degradation. Possible significant soft tissue artifact versus soft tissue disruption or ulceration of the dorsum of the foot at the level of the tarsal region. Underlying soft tissue edema or cellulitis. Signal abnormality within the medial cuneiform bone and the first metatarsal bone, would be concerning for osteomyelitis. There is also signal abnormality of the middle cuneiform bone and 2nd metatarsal bone, concerning for osteomyelitis. Suspect tenosynovitis of peroneal, anterior and medial tendons. Suspect tear of the flexor hallucis longus tendon at the calcaneal level. IMPRESSION: 1. Acute osteomyelitis with gangrene of the right first metatarsal and middle / medial cuneiform bone. Debridement has been performed by Dr. Romano. The wound appears to be healing well at this point, although his history of peripheral artery disease is concerning. Vascular surgery has been consulted. If the wound does not heal, he may ultimately require amputation. Based on his cultures, he is not growing MRSA, so we have discontinued his vancomycin. We can continue with the IV Zosyn for now. He will need long-term IV antibiotics for at least 6 weeks. He can eventually be discharged with a peripherally inserted central catheter (PICC) to continue IV antibiotics at home. 2. Wound on the posterior surface of the left calf does not appear infected at this time. Continue with regular wound care. 3. Peripheral vascular disease consult with vascular surgery PLAN: Continue IV Zosyn, pending further culture results. When he is ready for discharge, he will need at least 6 weeks of IV / PO antibiotics. Outpatient antibiotics will depend on results of wound culture and severity of PVD. Followup in my office after discharge. Followup with Dr. Powers for wound care after discharge. Lac-Hydrin on bilateral legs to help with his severely dry skin. Thank you for this consult. I will follow along. MTDD
--- NOTE | 2019-11-17 12:02 | IPN ---
DATE: 11/16/2019 Patient continues to complain of hip pain. Evaluated previously with history of arthritis, rating this pain as 6/10, there all the time. Patient has had no fevers or chills. White count is decreasing. Currently on intravenous (IV) Zosyn for Streptococcus group B and Streptococcus parasanguinis. Proteus on right foot culture. Osteomyelitis cannot be ruled out. No fevers or chills. Temperature 98.6, pulse 86, respiratory rate 19, blood pressure 150/77, 94% on room air. Generally: Awake, alert, oriented to person, place, and time. Answering questions appropriately. No jugular venous distention (JVD). No thyromegaly. Lungs: Are clear to auscultation. No wheezing, rales, or rhonchi. Heart: S1, S2, sinus rhythm. Abdomen: Soft, nontender, and nondistended. Extremities: Right foot is bandaged. Left foot has 1st big toe amputation. Ulcer noted on the patellar region. Diminished pulses. LABORATORY DATA: White count 11.1, hemoglobin 12, hematocrit 40, platelet count 392. Sodium 137, potassium 4.5, chloride 100, bicarbonate 31, BUN 19, creatinine 1.16, glucose of 189. Wound culture right foot: Proteus mirabilis, Streptococcus group B, Streptococcus parasanguinis, Corynebacterium. Anaerobic culture is pending. ASSESSMENT AND PLAN: This is a 64-year-old male, admitted on 11/12/2019 with worsening right foot infection and diabetic ulcer, found to have right foot diabetic infection with Proteus and group B Streptococcus, debrided by Dr. Romano. IMPRESSION: 1. Peripheral vascular disease, status post bone debridement of the right foot with bone exposed. Cultures grew out Proteus, group B Streptococcus, Streptococcus parasanguinis, and Corynebacterium, currently on intravenous Zosyn. Infectious disease (ID) has been consulted, Dr. Hancock. Patient is continued on Zosyn with decreasing white count. No fever. Defer to video game animator for further debridement if needed. 2. Hypoglycemia/type 2 diabetes. Patient's Levemir had been decreased to 50 units twice a day, but hyperglycemia occurred overnight, so this has been increased to 55 units. Continue on consistent-carbohydrate diet, sliding scale with coverage. 3. Hypertension, stable on amlodipine and lisinopril. Blood pressure is 140-150. Titrate for better blood pressure control. 4. Peripheral vascular disease. Arterial studies show no acute hemodynamically significant stenosis noted. Vascular surgery is available on Monday. Defer to vascular surgery if further stenting is required or if an angiogram is needed. 5. Patient has a history of stenting by Dr. Harris. Currently on Eliquis 5 mg twice a day and aspirin 81 daily. MTDD
[2019-11-17 14:00] VITALS: BP 119/71
[2019-11-17] MEDS: PRAVASTATIN 20 MG TAB PO SCH (21:34)
[2019-11-17] MEDS: ASPIRIN 81 MG ENTERIC TAB PO SCH (21:34)
[2019-11-17 22:00] VITALS: BP 135/80
[2019-11-18 05:53] LABS: HEMATOCRIT 42.4 % (42.0-52.0); HEMOGLOBIN 12.5 g/dl (13.5-17.5); MEAN CORPUSCULAR HEMOGLOBIN 23.8 pg (27.0-33.0); MEAN CORPUSCULAR HGB CONC 29.5 g/dl (32.0-36.5); MEAN CORPUSCULAR VOLUME 80.6 fl (80.0-96.0); PLATELET COUNT, AUTOMATED 328 10^3/uL (150-450); RED BLOOD COUNT 5.26 10^6/uL (4.30-6.10); WHITE BLOOD COUNT 11.4 10^3/uL (4.0-10.0)
[2019-11-18] MEDS: SLF 3 ML SYR IV SCH ×3 (05:59→21:24)
[2019-11-18 06:00] VITALS: BP 130/78
[2019-11-18 06:25] LABS: CALCIUM LEVEL 8.8 MG/DL (8.8-10.2); CREATININE FOR GFR 1.29 MG/DL (0.70-1.30); GLOMERULAR FILTRATION RATE 59.7 (>49); MAGNESIUM LEVEL 1.9 MG/DL (1.8-2.4); POTASSIUM SERUM 4.6 MEQ/L (3.5-5.1)
--- NOTE | 2019-11-18 08:26 | CR.PDOC ---
General Date of Consultation: November 18, [address] Mcdaniels HPI: 64year oldM with a past medical history significant for PAD, previously followed by Dr. Harris with angiogram left lower extremity October 2017 with an gioplasty left popliteal, left SFA, left femoral and left external iliac artery. The patient follows with Dr. Powers's office for wound care for his foot wounds. The patient was admitted with sepsis and wounds of the right foot 11/12/19. Vascular surgery was consulted for further evaluation. Bilateral lower extremity arterial study was obtained. Denies any fevers, chills, weakness, fatigue, Headache, Chest Pain, Shortness of breath, cough, palpitations, abdominal pain, N/V/D or changes in bowel or bladder habits. Medical History 1. Charcot foot 2. Insulin-dependent diabetes. 3. Chronic foot wounds. 4. Peripheral arterial disease. 5. Diabetic neuropathy. 6. Hypertension. 7. Dyslipidemia. 8. Coronary arterial disease with stents. 9. Osteoarthritis of the hip. 10. Chronic anemia. 11. CLAUDIA does not use his CPAP 12. Peripheral venous insufficiency in both lower extremities, 13. Afib Surgical History 1. Cardiac stents 2001 2. C6 corpectomy and C5-C6 fusion with fibular strut graft and anterior cervical plate in 2002 3. Left big toe amputation 2012 4. Melanoma of left eyelid removal 1998 5. Rotator cuff surgery. 6. Bilateral common and external iliac artery angioplasty and stenting 7. Left lower extremity angioplasty and stenting SOCHX: Former smoker FAMHX: Father with history of cancer ROS: As noted in HPI, otherwise 11pt ROS of systems reviewed and unremarkable. PE: GEN: 64 yo M, appears stated age. No acute distress. Pleasant, interactive. HEENT: Normocephalic, atraumatic. Moist mucous membranes. Dentition fair. CHEST: Regular rate and rhythm, +S1, +S2 LUNGS: No wheezes. NEURO: Alert and oriented x 3. Cranial nerves III-XII are intact. No focal deficits appreciated. BILATERAL LOWER EXTREMITY DUPLEX DOPPLER ARTERIAL ULTRASOUND: Real-time sonographic evaluation and duplex Doppler interrogation of the bilateral lower extremity arterial systems is performed. The study is limited due to patient body habitus. There is diffuse plaquing bilaterally. Diffuse monophasic waveforms are seen throughout the right lower extremity. Biphasic and triphasic waveforms are seen throughout the left lower extremity. Given the monophasic waveforms in the right lower extremity, there may be a more proximal stenosis in the iliac system. There is no duplex Doppler sonographic evidence of hemodynamically significant stenosis in either common femoral artery, superficial femoral artery, or popliteal artery. Right Peak Left Peak Systolic Velocity Systolic velocity Common femoral artery 136.4 cm/s 104.4 cm/s Profunda 106.8 cm/s 68.3 cm/s Proximal SFA 81.2 cm/s 92.9 cm/s Mid SFA 117.5 cm/s 101.7 cm/s Distal SFA 190.9 cm/s 97.9 cm/s Popliteal 166.3 cm/s 120.2 cm/s Proximal TRISHA 47.6 cm/s 55.0 cm/s Tibial peroneal trunk 83.0 cm/s 118.1 cm/s Proximal CHILD AND FAMILY SERVICES WORKER 56.1 cm/s 58.5 cm/s Distal CHILD AND FAMILY SERVICES WORKER 59.0 cm/s not seen Distal TRISHA 62.2 cm/s not seen Electronically Signed by Luther Meza MD 11/15/2019 11:01 A A&P: 1. PAD/right foot wound IV antibiotics as per hospitalist. ID is consulted. Wound care as per Dr Romano. Bilateral lower extremity arterial ultrasound is reviewed indicating diffusely monophasic waveforms in the right lower extremity. Possibly consider angiogram. I spoke with the patient about this however the patient states that someone else told him that his flow was "Fine", he states "this is just a way to make more money for the hospital." I reassured him that the procedure would be to try to prove blood flow to the right lower extremity to facilitate healing. Dr. Mcdaniels to review and discuss with the patient further. The patient is not sure he wishes to consider angiogram at this time. Will follow. Dr. Mcdaniels reviewed and discussed with the patient. She discussed indication for angiogram, risks, benefits, and alternatives. The patient is agreeable to proceeding. Informed consent is placed in the chart. The patient should be nothing by mouth after 6 AM 11/19/19. He can have a light breakfast prior to 6 AM. Hold Eliquis this evening and in the morning, likely restart Eliquis following the procedure. Scr 1.29, GFR 59.7. Vital Signs/I&O Vital Signs Date Time Temp Pulse Resp B/P (MAP) Pulse Ox O2 Delivery O2 Flow Rate FiO2 11/18/19 06:00 97.4 94 18 130/78 (95) 95 Room Air 11/13/19 13:03 2 I&O- Last 24 Hours up to 6 AM 11/18/19 06:00 Intake Total 1300 ml Output Total 1225 ml Balance 75 ml Laboratory Data Labs 24H Laboratory Tests 2 11/17/19 11:27: Bedside Glucose (Misc Panel) 226H 11/17/19 16:37: Bedside Glucose (Misc Panel) 204H 11/17/19 20:12: Bedside Glucose (Misc Panel) 214H 11/18/19 05:40: Nucleated Red Blood Cells % (auto) 0.0, Anion Gap 7L, Glomerular Filtration Rate 59.7, Calcium Level 8.8, Magnesium Level 1.9 CBC/BMP Laboratory Tests 11/18/19 05:40 Microbiology Microbiology 11/13/19 Gram Stain - Final, Complete 11/13/19 Wound Culture - Final, Complete Streptococcus Parasanguinis Corynebacterium Species 11/13/19 Gram Stain - Final, Complete 11/13/19 Wound Culture - Final, Complete Proteus Mirabilis Strep Agalactiae Group B 11/13/19 Anaerobic Culture - Final, Complete Gemella Morbillorum 11/12/19 Blood Culture - Final, Complete NO GROWTH AFTER 5 DAYS 11/12/19 Blood Culture - Final, Complete NO GROWTH AFTER 5 DAYS Allergies Coded Allergies: TAPE (Verified Allergy, Mild, RASH/BLISTERS, 08/15/19) No Known Drug Allergies (Verified Allergy, Unknown, 08/15/19) Home Medications Scheduled Amlodipine Besylate (Amlodipine Besylate) 10 Mg Tablet, 10 MG PO DAILY, (Reported) Apixaban (Eliquis) 5 Mg Tablet, 5 MG PO BID, (Reported) Aspirin (Aspir 81) 81 Mg Tablet.dr, 81 MG PO QHS, (Reported) Duloxetine Hcl (Duloxetine HCl) 60 Mg Capsule.dr, 60 MG PO DAILY, (Reported) Fentanyl (Fentanyl) 100 Mcg Patch.td72, 100 MCG TOP Q3D, (Reported) CURRENTLY APPLIED TO STOMACH Gabapentin (Gabapentin) 600 Mg Tablet, 600 MG PO TID, (Reported) Glipizide (Glipizide ER) 10 Mg Tab.er.24, 10 MG PO DAILY, (Reported) Insulin Detemir (Levemir) 100 Unit/1 Ml Vial, 60 UNITS SC BID, (Reported) Insulin Human NPH (Humulin N) 100 Unit/1 Ml Vial, 66 UNITS SQ QAM, (Reported) Insulin Human NPH (Humulin N) 100 Unit/1 Ml Vial, 77 UNITS SC QPM, (Reported) Insulin Human Regular (Humulin R) 100 Unit/1 Ml Vial, 36 UNITS SQ BID, (Reported) BREAKFAST AND LUNCH Insulin Human Regular (Humulin R) 100 Unit/1 Ml Vial, 38 UNITS SC QPM, (Reported) Latanoprost (Xalatan) 0.005% 2.5ML Drops, 1 DROP OU QHS, (Reported) Lisinopril (Lisinopril) 5 Mg Tablet, 5 MG PO DAILY, (Reported) Magnesium Gluconate (Mag-G) 27 Mg Tablet, 500 MG PO DAILY, (Reported) Metoprolol Tartrate (Metoprolol Tartrate) 25 Mg Tablet, 25 MG PO BID, (Reported) Multivitamins (Thera M Plus Tablet) 1 Each Tablet, 1 TAB PO DAILY, (Reported) Niacin (Niacor) 500 Mg Tablet, 1,000 MG PO QHS, (Reported) [place]-3 Fatty Acids/Fish Oil (Fish Oil 1,000 mg Capsule) 1 Each Capsule, 1,000 MG PO DAILY, (Reported) Pantoprazole Sodium (Pantoprazole Sodium) 40 Mg Tablet.dr, 40 MG PO DAILY, (Reported) Pravastatin Sodium (Pravastatin Sodium) 20 Mg Tablet, 20 MG PO QHS, (Reported) Salmeterol (Serevent Diskus) 50 Mcg Blst.w.dev, 1 PUFF INH BID, (Reported) Scheduled PRN Albuterol Sulfate (Albuterol Sulfate Hfa) 8.5 Gm Hfa.aer.ad, 2 PUFF INH QID PRN for SHORTNESS OF BREATH, (Reported) Docusate Sodium (Colace) 100 Mg Capsule, 100 MG PO BID PRN for CONSTIPATION, (Reported) Oxycodone HCl (Oxycodone HCl) 10 Mg Tablet, 10 MG PO QID PRN for PAIN, (Reported) MAY TAKE ONE TO TWO TABS Rehana Vasquez November 18, 2019 08:26
[2019-11-18] MEDS: PIPERACILLIN/TAZOBACTAM SOD 3.375 GM in D5W MINI-BAG PLUS 50 ML IV SCH ×3 (08:54→21:23)
[2019-11-18] MEDS: LEVEMIR (INSULIN DETEMIR) 1 UNITS/0.01ML SC SCH ×2 (08:54→20:35)
[2019-11-18] MEDS: HumaLOG INSULIN (NovoLOG) PER UNIT SC SCH ×4 (08:54→20:36)
[2019-11-18] MEDS: lisinopriL 5 MG TAB PO SCH (08:55)
[2019-11-18] MEDS: DULoxetine 30 MG CAP (CYMBALTA) PO SCH (08:55)
[2019-11-18] MEDS: MAGNESIUM GLUCONATE 500 MG TAB PO SCH (08:55)
[2019-11-18] MEDS: GABAPENTIN 300 MG CAP PO SCH ×3 (08:55→20:34)
[2019-11-18] MEDS: APIXABAN 5 MG TAB (ELIQUIS) PO SCH (08:55)
[2019-11-18] MEDS: amLODIPine 10 MG TAB PO SCH (08:56)
[2019-11-18] MEDS: METOPROLOL TART 25 MG TABLET PO SCH ×2 (08:56→20:35)
[2019-11-18] MEDS: PANTOPRAZOLE 40MG TAB (PROTONIX) PO SCH (08:56)
[2019-11-18] MEDS: LACTIC ACID 12% LOTION 225 GM BTL TOP SCH ×2 (08:57→20:36)
[2019-11-18] MEDS: oxyCODONE 5MG TAB PO PRN ×2 (09:26→18:19)
[2019-11-18] MEDS: fentaNYL 100 MCG/HR PATCH TOP SCH (09:26)
[2019-11-18] MEDS: FENTANYL REMOVAL DOCUMENTATION MISC XX SCH (09:29)
[2019-11-18 14:00] VITALS: BP 136/76
--- NOTE | 2019-11-18 14:19 | IPN ---
DATE OF SERVICE: 11/17/2019 The patient has no fever or chills overnight. He still complains of left hip pain but says that he cannot get that operated on due to acute infection in his right lower extremity and "nothing helps." He describes the pain as 5/10 on the pain scale that is present all the time. He has no pain in the right lower extremity. Vital signs: Temperature 98.3, pulse 77, respiratory rate 19, blood pressure 119/71, 98% on room air. Generally: The patient is awake, alert, oriented, answering questions appropriately. Lungs: Are clear to auscultation. No wheezing, rales, or rhonchi. Heart: S1, S2, sinus rhythm. Abdomen: Obese, soft, nontender, nondistended. Extremities: The patient has tenderness in the left hip, Unable to flex and extend due to severe pain. The patient has a left toe amputation on the big toe. Right foot is bandaged with no purulence, no malodorous discharge. LABORATORY DATA: White count 11.2, hemoglobin 12.6, hematocrit 42, platelet count 369. Sodium 137, potassium 4.4, chloride 103, bicarbonate 29, BUN 25, creatinine 1.14, glucose of 182. ASSESSMENT AND PLAN: This is a 64-year-old male, history of diabetes, Charcot foot, peripheral neuropathy, peripheral arterial disease (PAD), stent, hypertension, dyslipidemia, coronary artery disease (CAD), osteoarthritis of his left hip, obstructive sleep apnea (CLAUDIA) on continuous positive airway pressure (CPAP), chronic wounds in lower extremity, atrial fibrillation (AFib), peripheral vascular disease status post stenting by Dr. Harris, left big toe amputation, melanoma of the left eyelid resection, and bilateral lower extremity angioplasty. Currently with: 1. Acute right 1st metatarsal medial cuneiform bone diabetic wound infection with osteomyelitis. Still on intravenous Zosyn, status post surgical debridement by Dr. Romano. Wound culture grew out Proteus mirabilis, group B Streptococcus parasanguinis, and Corynebacterium. Infectious disease (ID) has been consulted for management of antibiotics. Currently has no fever with stable white count of 11.2 decreased from 17.5 on admission. 2. Left hip pain due to osteoarthritis. On as needed pain medications. The patient says that his orthopedic surgeon will likely get this replaced once he is medically stable. Therefore, will need outpatient followup. 3. Type 2 diabetes. Continued on Levemir insulin sliding scale with coverage and fingersticks before food and nightly. Due to hypoglycemia, his Levemir insulin has been decreased. Will need to titrate up for better glycemic control. 4. Hypertension. On chronic lisinopril, metoprolol. 5. History of peripheral vascular disease, status post angioplasty and stent. The patient had previously seen Dr. Harris. Vascular surgery has been consulted. Arterial Doppler showed no acute obstruction of the imaged vessels. No change in management. Continue on Eliquis for now. MTDD
--- NOTE | 2019-11-18 16:38 | IPNPDOC ---
Date Seen The patient was seen on 11/18/19. Progress Note Patient seen and examined. Please see Rehana BASILIO consult note for full consultation. I reviewed the patient's arterial study. It is possible he does not have severe right lower extremity arteriopathy, but he does have suggestion of right lower extremity inflow disease, as well as some concern for distal tibial disease. At this point, with the patient's wound and infection, any additional blood flow we can provide would be helpful for healing. I think it is worthwhile to try and see if we can open up any additional flow within arteriogram and intervention. I have discussed this at length with the patient including the risks benefits alternatives, and he is agreeable to proceed. We w ill plan on doing this tomorrow afternoon as an add-on case. Therefore, it is okay for the patient to have a light early breakfast between 5 and 6 AM, but then nothing by mouth after 6 AM. Creatinine is 1.29, we will use as little contrast is possible for the procedure. We will also hydrate with normal saline mary-procedurally. I discussed with the patient that there are many factors involved in wound healing, including controlling infection with debridement and antibiotics, offloading the wound to prevent pressure, good wound care, high- protein diet, tight glucose control, in addition to providing as much blood flow as possible. He is agreeable and we will plan to proceed with arteriogram t omorrow afternoon. We appreciate the opportunity to participate in the care of this patient. VS, I&O, 24H, Fishbone Vital Signs/I&O Vital Signs Date Time Temp Pulse Resp B/P (MAP) Pulse Ox O2 Delivery O2 Flow Rate FiO2 11/18/19 14:00 97.7 77 19 136/76 (96) 96 Room Air 11/13/19 13:03 2 I&O- Last 24 Hours up to 6 AM 11/18/19 06:00 Intake Total 1300 ml Output Total 1225 ml Balance 75 ml Laboratory Data 24H LABS Laboratory Tests 2 11/17/19 16:37: Bedside Glucose (Misc Panel) 204H 11/17/19 20:12: Bedside Glucose (Misc Panel) 214H 11/18/19 05:40: Nucleated Red Blood Cells % (auto) 0.0, Anion Gap 7L, Glomerular Filtration Rate 59.7, Calcium Level 8.8, Magnesium Level 1.9 11/18/19 11:50: Bedside Glucose (Misc Panel) 177H CBC/BMP Laboratory Tests 11/18/19 05:40 Microbiology Microbiology 11/13/19 Gram Stain - Final, Complete 11/13/19 Wound Culture - Final, Complete Streptococcus Parasanguinis Corynebacterium Species 11/13/19 Gram Stain - Final, Complete 11/13/19 Wound Culture - Final, Complete Proteus Mirabilis Strep Agalactiae Group B 11/13/19 Anaerobic Culture - Final, Complete Gemella Morbillorum 11/12/19 Blood Culture - Final, Complete NO GROWTH AFTER 5 DAYS 11/12/19 Blood Culture - Final, Complete NO GROWTH AFTER 5 DAYS TERRANCE STARKS MD November 18, 2019 16:38
[2019-11-18] MEDS: ASPIRIN 81 MG ENTERIC TAB PO SCH (20:34)
[2019-11-18] MEDS: PRAVASTATIN 20 MG TAB PO SCH (20:35)
--- NOTE | 2019-11-18 21:22 | IPN ---
DATE: 11/18/2019 Paul is seen when rounding for the hospitalist. Complicated hospitalization with osteomyelitis, peripheral arterial disease, hypertension, diabetes. Wound and bone cultures have been reviewed. Dr. Hancock has been consulted and is guiding antibiotic therapy. Patient feels better today. No fevers or chills. He thinks his pain is under control. Afebrile, 130/78. GENERAL APPEARANCE: Alert, conversant. No distress. LUNGS: Clear. HEART: Regular rate and rhythm. ABDOMEN: Soft, nontender. His right lower extremity is dressed. LABORATORY DATA: White count 11.4, hemoglobin 12.5, platelets 328. Sodium 142, potassium 4.6, BUN 32, creatinine 1.2, glucose 192. IMPRESSION: 1. Acute osteomyelitis, right 1st metatarsal, middle cuneiform bone. Debridement already performed by podiatry. Antibiotic therapy per Dr. Hancock. Will need a peripherally inserted central catheter (PICC) line for prolonged IV antibiotic therapy at home, 6-week course planned. 2. Peripheral arterial disease. Consultation from vascular surgery is in process.
[2019-11-18 22:00] VITALS: BP 132/73
[2019-11-19] VITALS (10 sets, daily range): BP systolic 84–133; BP diastolic 54–70
[2019-11-19] MEDS: PIPERACILLIN/TAZOBACTAM SOD 3.375 GM in D5W MINI-BAG PLUS 50 ML IV SCH ×4 (04:30→21:52)
[2019-11-19] MEDS: SLF 3 ML SYR IV SCH ×3 (04:31→21:52)
[2019-11-19 06:28] LABS: HEMATOCRIT 42.9 % (42.0-52.0); HEMOGLOBIN 12.5 g/dl (13.5-17.5); MEAN CORPUSCULAR HEMOGLOBIN 23.6 pg (27.0-33.0); MEAN CORPUSCULAR HGB CONC 29.1 g/dl (32.0-36.5); MEAN CORPUSCULAR VOLUME 80.9 fl (80.0-96.0); PLATELET COUNT, AUTOMATED 346 10^3/uL (150-450); WHITE BLOOD COUNT 10.1 10^3/uL (4.0-10.0)
[2019-11-19 06:53] LABS: BLOOD UREA NITROGEN 33 MG/DL (7-18); C REACTIVE PROTEIN QUANTITATIV 3.33 MG/DL (0.00-0.30); CALCIUM LEVEL 8.6 MG/DL (8.8-10.2); CARBON DIOXIDE LEVEL 34 MEQ/L (21-32); CHLORIDE LEVEL 103 MEQ/L (98-107); CREATININE FOR GFR 1.21 MG/DL (0.70-1.30); GLOMERULAR FILTRATION RATE > 60.0 (>49); GLUCOSE, FASTING 177 MG/DL (70-100); POTASSIUM SERUM 4.5 MEQ/L (3.5-5.1); SODIUM LEVEL 140 MEQ/L (136-145)
[2019-11-19] MEDS: LEVEMIR (INSULIN DETEMIR) 1 UNITS/0.01ML SC SCH ×2 (08:15→20:36)
[2019-11-19] MEDS: HumaLOG INSULIN (NovoLOG) PER UNIT SC SCH ×4 (08:15→20:27)
[2019-11-19] MEDS: amLODIPine 10 MG TAB PO SCH (08:16)
[2019-11-19] MEDS: DULoxetine 30 MG CAP (CYMBALTA) PO SCH (08:16)
[2019-11-19] MEDS: PANTOPRAZOLE 40MG TAB (PROTONIX) PO SCH (08:16)
[2019-11-19] MEDS: GABAPENTIN 300 MG CAP PO SCH ×3 (08:16→20:35)
[2019-11-19] MEDS: METOPROLOL TART 25 MG TABLET PO SCH ×2 (08:16→20:35)
[2019-11-19] MEDS: lisinopriL 5 MG TAB PO SCH (08:17)
[2019-11-19] MEDS: MAGNESIUM GLUCONATE 500 MG TAB PO SCH (08:18)
[2019-11-19] MEDS: LACTIC ACID 12% LOTION 225 GM BTL TOP SCH ×2 (08:19→20:36)
[2019-11-19] MEDS ORDERED: fentaNYL 100 MCG/2 ML INJECTION (J3010) As Ordered ONE ×2 (09:51→16:24)
[2019-11-19] MEDS ORDERED: LIDOCAINE 1% MDV 20ML VIAL As Ordered ONE ×2 (09:52→16:14)
[2019-11-19] MEDS ORDERED: ISOVUE-300 61% 50ML VIAL As Ordered ONE ×2 (09:52→16:14)
[2019-11-19] MEDS ORDERED: LIDOCAINE W/EPINEPHRINE 1% 20ML VIAL As Ordered ONE (11:51)
--- NOTE | 2019-11-19 12:02 | ROOPDOC ---
[facility] Report Of Operation Report of Operation DATE OF PROCEDURE: 11/19/19 PREPROCEDURE DIAGNOSES: Atherosclerosis in the lower [place] vessels with nonhealing wound right foot POSTPROCEDURE DIAGNOSES: Same PROCEDURE: 1. Ultrasound-guided access left common femoral artery 2. Aortoiliofemoral arteriogram with selection of right common femoral artery and superficial femoral artery and right lower extremity runoff 3. Angioplasty superficial femoral artery and popliteal artery was 6 x 200 [place] balloon 4. Stenting right distal SFA to mid popliteal artery with 6 x 150 Innova stent 5. Post-dilation stent with 6 x 200 [place] balloon 6. Completion arteriogram SURGEON: Terrance Mcdaniels MD ANESTHESIA: Local anesthesia with 13 mL lidocaine. Full sedation was not utilized for this procedure, only analgesia. The patient had a light breakfast at 5 AM, and since he was not completely nothing by mouth for greater than 6 hours, full sedation was not utilized. However, he was still monitored in the typical fashion during the procedure by myself and a registered nurse assigned to the Department of radiology using automated blood pressure, EKG, and pulse oximetry. He received a total of 50 g of fentanyl IV during the procedure, and 5000 units of heparin IV. He tolerated the procedure well despite not receiving full sedation. He remained hemodynamically stable. INDICATION FOR PROCEDURE: This is a very pleasant 64-year-old gentleman with diabetic arteriopathy and a nonhealing wound of the right foot status post debridement. He has osteomyelitis and is receiving IV antibiotics. His arterial duplex revealed plaque throughout the vessels and his distal ankle and foot arteries were not visualized due to dressings in place from his recent surgery. I discussed with the patient the risks benefits and alternatives to an arteriogram and potential intervention. If there is any blood flow we can improve upon, even the smallest amount could be helpful for healing his foot. I also discussed with him that there may be limitations in blood flow distally that we could possibly improve upon that is not visualized by the arterial duplex. After an extensive conversation the patient was agreeable to proceed. Informed consent was obtained. INTERPRETATION: 1. The distal aorta and the iliac segments are widely patent. He has pre- existing common and external iliac stents bilaterally that are patent. His left hypogastric artery is patent, but is right hypogastric artery is occluded. 2. The right common femoral artery and profunda are widely patent. The right superficial femoral artery is heavily calcified and ectatic throughout. There is a 30% stenosis focally 2 cm from the origin, several areas of 30-40% stenosis throughout the proximal portion of the SFA, significant 50-60% irregularities and stenosis at Mike's canal with heavy calcification, and then this runs off into the popliteal artery which is also ectatic and stenotic in its proximal half, with a focal stenosis of an estimated 70% in the midportion. Distal to this, the patient has widely patent runoff to the foot. His right popliteal distally is widely patent, and there is good flow through the right anterior tibial artery, peroneal artery, and posterior tibial artery as well with good pedal flow. 3. After angioplasty in the proximal and mid right superficial femoral artery, there is widely patent flow with less than 10% residual stenoses at any of the areas of previous stenosis, and no flow-limiting dissection, embolization, or extravasation noted. After angioplasty of the distal right superficial femoral artery, there is still recurrent stenosis noted at the mid popliteal and within Mike's canal from heavy plaque, which was widely patent after stenting and post-dilation. No distal embolization dissection or extravasation was noted after angioplasty and stenting. There was widely patent rapid flow through the SFA and popliteal into the distal vessels. REPORT OF OPERATION: The patient was brought to the angiographic suite in stable condition. His bilateral groins were prepped and draped in a sterile fashion. A timeout was performed. Analgesia was administered without complication. Local anesthesia was administered to the skin and subcutaneous tissue over the left common femoral artery and a microneedle was used to access the artery under ultrasound guidance. A wire was passed through this access and the needle was removed and a 4 [place] micro-sheath was placed and flushed with saline. Glidewire and obviously flushed catheter were advanced into the distal aorta and in aortoiliofemoral arteriogram was performed. Please interpretation above. We then went up and over the frication with the Glidewire the Omni flushed catheter and selected the left common femoral artery and superficial femoral artery. A left lower extremity runoff was performed. Please interpretation above. We then exchange the sheath over the wire for a 6 x 45 destination sheath and flushed the sheath was saline. Through this access, we passed a 6 x 200 [place] balloon and first 2 three-minute inflations across the mid popliteal through Mike's canal in the SFA, and then the mid SFA and then the proximal SFA. After multiple three-minute inflations, we did see marked improvement with no significant residual stenosis in the proximal and mid SFA, but there was still rebound stenosis in the mid popliteal artery and at Mike's canal from heavier plaque in stenoses in these areas. We therefore selected a 6 x 150 Innova stent endplate this from the mid popliteal artery to proximal Mike's canal. We postdilated this with a 6 x 200 [place] balloon. Following this, there was widely patent inflow through the entire SFA with no significant residual stenosis, no embolization on completion distal arteriogram, no extravasation, and no dissection. This concluded the procedure. We exchange the sheath for short 6 [place] sheath over the Glidewire and applied a Mynx closure device in the left common femoral artery with good hemostasis. Pressure was held for 10 minutes and sterile dressings were applied. The patient was taken to recovery and then back to his inpatient room in stable condition. ESTIMATED BLOOD LOSS: Approximately 5 mL. COMPLICATIONS: None. PLAN: It is okay to resume the patient's diabetic diet, eliquis, and other medications. He will need 5 hours of bedrest postprocedure. He can resume light activity after 5 PM. No strenuous activity or lifting greater than 5 pounds for 48 hours. Head of bed should be less then 15 while on bedrest. It is okay with the patient in reverse Trendelenburg. Based on my findings today, the patient had fairly good flow on the right lower extremity, with the exception of the areas treated in the SFA and popliteal artery. He has excellent tibial flow and pedal flow. Although the improved blood flow we provided today should help with healing, I think it is most important for the patient to continue with offloading, careful wound care, IV antibiotics, and he needs to keep his sugars well controlled. I would also highly recommend a high-protein diet to help with wound healing. We appreciate the opportunity to participate in the care of this patient. TERRANCE MCDANIELS MD November 19, 2019 12:02
[2019-11-19] MEDS: oxyCODONE 5MG TAB PO PRN ×2 (13:29→20:35)
--- NOTE | 2019-11-19 14:03 | IPNPDOC ---
Date Seen The patient was seen on 11/19/19. Progress Note SUBJECTIVE: Patient is a 64yM with PMH of PAD presents with acute osteomyelitis complicated by PAD. Patient is status post debridement of the right first metatarsal and middle cuneiform bone, ID consult to, currently on Zosyn and will require a 6 week course. POD#0 (11/19/19) s/p vascular surgery RLE. Pain controlled, no overnight events. OBJECTIVE PHYSICAL EXAMINATION: VITAL SIGNS: Please see below. GENERAL: A thin elderly male in No distress, speaking in full se ntences HEENT: Normocephalic, atraumatic, moist mucous membranes NECK: Supple CARDIOVASCULAR EXAMINATION: S1, S2 RESPIRATORY EXAMINATION: CTAB ABDOMINAL EXAMINATION: Soft, nontender, nondistended, positive bowel sounds EXTREMITIES: Both RLE and LLE cold, trace edema, erythema SKIN: No additional rash NEUROLOGICAL EXAMINATION: Awake PSYCHIATRIC EXAMINATION: Calm and cooperative, appropriate affect LABORATORY DATA, IMAGING STUDIES, MICROBIOLOGY: Please see below. ASSESSMENT AND PLAN: Patient is a 64yM with PMH of PAD presents with acute osteomyelitis complicated by PAD. Patient is status post debridement of the right first metatarsal and middle cuneiform bone, ID consult to, currently on Zosyn and will require a 6 week course. POD#0 (11/19/19) s/p vascular surgery RLE. #Acute osteomyelitis, right 1st metatarsal, middle cuneiform bone complicated by PAD -Debridement By Dr. Romano for R foot gangrene 11/13/19 (POD#6). Antibiotic therapy per Dr. Hancock. Will require PICC for prolonged IV antibiotic therapy at home, 6-week course planned. #POD#0 (11/19/19) s/p arterial femoral angiogram of the R common femoral artery and superficial femoral artery, angioplasty of the superficial femoral artery and popliteal artery, stenting of the right distal SFA to mid popliteal by Dr. Mcdaniels -recommendations for diabetic, high protein diet -resume eliquis -5 hours of bedrest postprocedure with light activity after 5 PM, no strenuous activity or lifting greater than 5 pounds for 48 hours with head of bed should be less then 15 while on bedrest 2 new pain control #DM, ISS, hypoglycemic protocol #HTN: cont home meds DVT ppx: NOAC Full code Dispo: f/u with PT, home PT vs rehab 11/20/19 vs 11/21/19 VS, I&O, 24H, Fishbone Vital Signs/I&O Vital Signs Date Time Temp Pulse Resp B/P (MAP) Pulse Ox O2 Delivery O2 Flow Rate FiO2 11/19/19 13:29 96.8 70 16 135/67 96 Room Air 11/19/19 11:38 2 I&O- Last 24 Hours up to 6 AM 11/19/19 06:00 Intake Total 1230 ml Output Total 1400 ml Balance -170 ml Laboratory Data 24H LABS Laboratory Tests 2 11/18/19 16:33: Bedside Glucose (Misc Panel) 144H 11/18/19 20:13: Bedside Glucose (Misc Panel) 270H 11/19/19 06:03: Nucleated Red Blood Cells % (auto) 0.0, Anion Gap 3L, Glomerular Filtration Rate > 60.0, Calcium Level 8.6L, Magnesium Level 2.0, C-Reactive Protein, Quantitative 3.33H 11/19/19 12:44: Bedside Glucose (Misc Panel) 184H CBC/BMP Laboratory Tests 11/19/19 06:03 Microbiology Microbiology 11/13/19 Gram Stain - Final, Complete 11/13/19 Wound Culture - Final, Complete Streptococcus Parasanguinis Corynebacterium Species 11/13/19 Gram Stain - Final, Complete 11/13/19 Wound Culture - Final, Complete Proteus Mirabilis Strep Agalactiae Group B 11/13/19 Anaerobic Culture - Final, Complete Gemella Morbillorum 11/12/19 Blood Culture - Final, Complete NO GROWTH AFTER 5 DAYS 11/12/19 Blood Culture - Final, Complete NO GROWTH AFTER 5 DAYS ROSARIO FRASER MD November 19, 2019 13:55
[2019-11-19] MEDS ORDERED: HYDROMORPHONE HCL 0.5 MG/ 0.5 ML SYRINGE (J1170 PER 1) IV PRN ×2 (15:00→15:30)
[2019-11-19] MEDS ORDERED: ACETAMINOPHEN TAB 650MG DOSE (2X325MG) PO PRN (15:00)
[2019-11-19 16:54] LABS: BASO # 0.1 10^3/uL (0.0-0.2); BASO % 0.6 % (0.0-1.0); EOS # 0.2 10^3/uL (0.0-0.5); EOS % 1.3 % (0.0-3.0); HEMATOCRIT 39.5 % (42.0-52.0); HEMOGLOBIN 11.4 g/dl (13.5-17.5); LYMPH # 1.5 10^3/uL (1.5-5.0); LYMPH % 10.8 % (24.0-44.0); MEAN CORPUSCULAR HEMOGLOBIN 23.4 pg (27.0-33.0); MEAN CORPUSCULAR HGB CONC 28.9 g/dl (32.0-36.5); MEAN CORPUSCULAR VOLUME 81.1 fl (80.0-96.0); MONO % 7.3 % (0.0-5.0); NEUTROPHILS # 10.8 10^3/uL (1.5-8.5); NEUTROPHILS % 79.1 % (36.0-66.0); PLATELET COUNT, AUTOMATED 383 10^3/uL (150-450); RED BLOOD COUNT 4.87 10^6/uL (4.30-6.10); WHITE BLOOD COUNT 13.6 10^3/uL (4.0-10.0)
--- NOTE | 2019-11-19 18:01 | ROOPDOC ---
[facility] Report Of Operation Report of Operation DATE OF PROCEDURE: 11/19/19 PREPROCEDURE DIAGNOSES: Suspected left flank retroperitoneal hematoma POSTPROCEDURE DIAGNOSES: No active bleeding or extravasation noted left iliofem oral arteries PROCEDURE: 1. Ultrasound-guided access right common femoral artery 2. Left iliofemoral arteriogram with multiple oblique views 3. Mynx closure right common femoral artery SURGEON: Terrance Mcdaniels MD ANESTHESIA: Local anesthesia was 7 mL of lidocaine. We'll sedation was not used for this procedure. The patient did have part of his lunch at noon today, therefore we only gave him a small amount of additional analgesia. He was still monitored I myself and the registered nurse assigned to the Department of radiology using automated blood pressure, EKG, and pulse oximetry. He was given a total of 50 g of fentanyl IV for the procedure. CONTRAST: 20 mL Isovue-300 INDICATION FOR PROCEDURE: This is a very pleasant 64-year-old patient who under went a right lower extremity arteriogram and angioplasty and stenting of his right superficial femoral artery and proximal popliteal artery earlier today. He returned to the floor in stable condition with no hematoma or bleeding noted at the left groin. Vital signs were stable. At some point over the next 2 hours, the patient developed intense hematoma of the left flank with increasing pain and discomfort. I was notified and immediately upon notification went to see the patient. I felt likely that he had developed a hematoma status post left groin femoral access for the procedure. Risks benefits and alternatives to an urgent return to the anterior Suite for a left iliofemoral arteriogram and possible stenting if active bleeding was noted was discussed at length with the patient and he was agreeable to proceed. Informed consent was obtained. INTERPRETATION: 1. There is widely patent flow through the left common iliac artery, hypogastric artery, and external iliac artery and the pre-existing stents are widely patent. The left common femoral artery is also widely patent with runoff through the profunda and the SFA. Multiple oblique views of the iliofemoral vessels were obtained and no extravasation, blush of contrast, or other concerning factors were noted. No active bleeding was noted. REPORT OF OPERATION: Patient was brought to the angiographic suite in stable condition. His right groin was prepped and draped in a sterile fashion. A timeout was performed. Analgesia was administered without complication. Local anesthesia was administered to skin and subcutaneous tissue over the right common femoral artery and a microneedle was used to access the artery under ultrasound and fluoroscopic guidance. We passed a wire into the central system and the needle was removed and a 4 [place] glide sheath was placed and flushed with saline. We went up and over the bifurcation with a Glidewire and on the flash catheter and selected the distal left external iliac artery and proximal common femoral artery. Ileo-femoral arteriograms were performed on the left with multiple oblique views and no active bleeding was noted. After extensive interrogation of the vessels, we decided no further intervention would be needed. Exchanged this 4 [place] sheath over the wire for 5 [place] sheath into play to Mynx closure device with good hemostasis. Pressure was held for 10 minutes and sterile dressings were applied. The patient was taken to recovery in stable condition and will be discharged back to the floor. He tolerated the procedure well and says his pain is improved overall. He says it started to improve an hour ago, before we did the procedure, and likely the bleeding had stopped at some point before we brought him down and his discomfort may be improving since there is less pressure from active bleeding. ESTIMATED BLOOD LOSS: Approximately 5 mL. COMPLICATIONS: None. PLAN: At this point, I would recommend keeping the patient on bed rest until morning 11/20/19. I would not restart the eliquis until tomorrow morning. The hemoglobin decreased from 12-11 postprocedure, but this may still be equilibrating, and I would recommend every 6 hours H&H x2 to trend the hemoglobi n. He has not received a blood transfusion, and with a hemoglobin of 11 and a stable heart rate and blood pressure, I do not believe he needs a transfusion at this time. We did send a type and screen in case he were to need a transfusion at some point in the next 24 hours. However, with no active bleeding noted, I hope this will not be necessary. We should monitor the patient's bilateral groins for bleeding every 15 minutes 4, every 30 minutes 2, every hour 2, then with vital signs and as necessary overnight. If hemoglobin remained stable and no new bleeding issues, we can resume the eliquis tomorrow. We appreciate the opportunity to participate in the care of this patient. TERRANCE MCDANIELS MD November 19, 2019 18:01
[2019-11-19] MEDS: ASPIRIN 81 MG ENTERIC TAB PO SCH (20:34)
[2019-11-19] MEDS: PRAVASTATIN 20 MG TAB PO SCH (20:35)
[2019-11-19 23:28] LABS: HEMATOCRIT 39.7 % (42.0-52.0); HEMOGLOBIN 11.2 g/dl (13.5-17.5); MEAN CORPUSCULAR HEMOGLOBIN 23.5 pg (27.0-33.0); MEAN CORPUSCULAR HGB CONC 28.2 g/dl (32.0-36.5); MEAN CORPUSCULAR VOLUME 83.2 fl (80.0-96.0); PLATELET COUNT, AUTOMATED 327 10^3/uL (150-450); RED BLOOD COUNT 4.77 10^6/uL (4.30-6.10); WHITE BLOOD COUNT 12.6 10^3/uL (4.0-10.0)
[2019-11-20 02:00] VITALS: BP 123/65
[2019-11-20] MEDS: ACETAMINOPHEN TAB 650MG DOSE (2X325MG) PO PRN ×2 (04:38→16:56)
[2019-11-20] MEDS: PIPERACILLIN/TAZOBACTAM SOD 3.375 GM in D5W MINI-BAG PLUS 50 ML IV SCH ×4 (04:38→22:03)
[2019-11-20] MEDS: SLF 3 ML SYR IV SCH ×3 (05:11→22:06)
[2019-11-20 05:49] LABS: HEMATOCRIT 35.1 % (42.0-52.0); HEMOGLOBIN 10.1 g/dl (13.5-17.5); MEAN CORPUSCULAR HEMOGLOBIN 23.2 pg (27.0-33.0); MEAN CORPUSCULAR HGB CONC 28.8 g/dl (32.0-36.5); MEAN CORPUSCULAR VOLUME 80.7 fl (80.0-96.0); PLATELET COUNT, AUTOMATED 306 10^3/uL (150-450); RED BLOOD COUNT 4.35 10^6/uL (4.30-6.10); WHITE BLOOD COUNT 12.1 10^3/uL (4.0-10.0)
[2019-11-20 06:00] VITALS: BP 118/66
[2019-11-20 06:18] LABS: CALCIUM LEVEL 8.6 MG/DL (8.8-10.2); CREATININE FOR GFR 1.36 MG/DL (0.70-1.30); GLOMERULAR FILTRATION RATE 56.2 (>49); MAGNESIUM LEVEL 1.9 MG/DL (1.8-2.4); POTASSIUM SERUM 4.5 MEQ/L (3.5-5.1)
--- NOTE | 2019-11-20 08:28 | CR ---
DATE OF CONSULTATION: 11/18/2019 Mr. Alex is doing well. He denies any fever, chills, nausea, vomiting or diarrhea. He is scheduled to have an angiogram tomorrow with Dr. Mcdaniels to evaluate right lower extremity circulation. He has been on IV Zosyn, currently day #7. He remains afebrile for the past 5 days. Temperature is 97.7, pulse 77, respirations 16, blood pressure 136/76, oxygen saturation 96% on room air. Heart: Normal S1 and S2. No murmurs, rubs or gallops. Lungs are clear. No wheezes or rhonchi. Abdomen: Soft, nontender, with an umbilical hernia. Extremities. Very sclerotic skin with scaliness, although markedly improved since we have applied [place]drin. Left lower extremity with lesion on the left calf from the Achilles tendon to the mid calf measuring about a 8 cm x 4 cm with nice granulation tissue. No purulence. He has an amputation of the first toe. Right lower extremity with an open ulceration on the dorsal aspect of the foot measuring 7 x 5 cm. There are a few areas of black eschar necrosis along the tendon. There is erythema extending all the way to the knee with mild warmth. LABORATORY DATA: White count 11.4, down from 17.5 on admission, hemoglobin 12.5, hematocrit 42.4, platelets 328. Sodium 142, potassium 4.6, chloride 104, bicarbonate 31, BUN 32, creatinine 1.29, glucose 192, calcium 8.8, magnesium 1.9. CRP on admission was 19. No followup CRP has been obtained. Wound culture from the right foot intraoperatively were positive for Proteus mirabilis, group B streptococcus, Gemella morbillorum, Streptococcus parasanguinis. Foot MRI done on admission showed osteomyelitis of the medial and middle cuneiform as well as first and second metatarsal heads status post resection. Pathology showed gangrenous necrotic tissue with inflammation involving the tendon and bone with bone marrow showing fat necrosis. IMPRESSION: 1. Acute osteomyelitis of the right foot with polymicrobial infection including Proteus, group B streptococcus, Streptococcus parasanguinis and Gemella, on IV Zosyn, doing better, day #7 of antibiotics of 6 weeks. Will continue currently with Zosyn. Would increase his dosing to every 6 hours due to poor circulation. 2. Peripheral vascular disease with arterial ultrasound showing a monophasic wave, and therefore, she is scheduled for angiogram tomorrow with Dr. Mcdaniels. 3. Very dry skin, on Lac-Hydrin, doing better. The patient will need a followup with dermatology to rule out psoriatic psoriasis. He also has a skin lesion on the back of his scalp that needs excision to rule out malignancy. 4. Pressure ulcer of the left calf, not infected. Follows up with Dr. Ortega for ischemia graft. PLAN: Increase IV Zosyn to 3.375 grams every 6 hours. He may not need a peripherally inserted central catheter (PICC) line and I may switch him to an oral antibiotic for 6 weeks by availability depending on his angiogram result. This will be decided at further date. For the meantime, continue with IV Zosyn every 6 hours and obtain followup C-reactive protein (CRP).
[2019-11-20] MEDS: HumaLOG INSULIN (NovoLOG) PER UNIT SC SCH ×4 (08:37→22:02)
[2019-11-20] MEDS: PANTOPRAZOLE 40MG TAB (PROTONIX) PO SCH (08:37)
[2019-11-20] MEDS: MAGNESIUM GLUCONATE 500 MG TAB PO SCH (08:37)
[2019-11-20] MEDS: APIXABAN 5 MG TAB (ELIQUIS) PO SCH ×2 (08:38→22:04)
[2019-11-20] MEDS: LEVEMIR (INSULIN DETEMIR) 1 UNITS/0.01ML SC SCH ×2 (08:38→22:02)
[2019-11-20] MEDS: DULoxetine 30 MG CAP (CYMBALTA) PO SCH (08:38)
[2019-11-20] MEDS: GABAPENTIN 300 MG CAP PO SCH ×3 (08:38→22:04)
[2019-11-20] MEDS: METOPROLOL TART 25 MG TABLET PO SCH ×2 (08:53→22:05)
[2019-11-20] MEDS: lisinopriL 5 MG TAB PO SCH (08:54)
[2019-11-20] MEDS: amLODIPine 10 MG TAB PO SCH (08:54)
--- NOTE | 2019-11-20 09:04 | IPNPDOC ---
Text Note Date of Service The patient was seen on 11/20/19. NOTE Vascular surgery. Dr. Mcdaniels 64year oldM with a past medical history significant for PAD, previously followed by Dr. Harris with angiogram left lower extremity October 2017 with angioplasty left popliteal, left SFA, left femoral and left external iliac artery. The patient was admitted with sepsis and wounds of the right foot 11/12/19. The patient is status post arteriogram right lower extremity 11/19/[address] Mcdaniels S/P angioplasty/stent superficial femoral artery and popliteal artery. Post procedure the patient was noted to have suspected left flank retroperit carvalho hematoma developing left flank and left groin tenderness. The patient was taken back to the IR suite as per Dr. Mcdaniels 11/19/19 however there was no active bleeding or extravasation noted left iliofemoral arteries. This morning the patient is in bed eating breakfast, he states pain has been improved, there has been less tenderness around the left groin and left flank areas. Overall he states he is feeling better. VSS. Heart rate 82, systolic blood pressure 118. There is an area of demarcation in the left groin area, there is no erythema beyond the line of demarcation. There is no significant tenderness with palpation this morning. Dressings are intact over the right foot and ankle area and left foot, ankle and pretibial area. Baseline hemoglobin is noted to be 12.5, last evening hemoglobin 11.2 and this morning 10.1. The patient has had type and screen, no transfusion thus far. Eliquis was restarted this morning. Continue to monitor. VS,Fishbone, I+O VS, Fishbone, I+O Laboratory Tests 11/19/19 16:43 11/19/19 23:15 11/20/19 05:26 Vital Signs Date Time Temp Pulse Resp B/P (MAP) Pulse Ox O2 Delivery O2 Flow Rate FiO2 11/20/19 06:00 98.4 82 14 118/66 (83) 92 Room Air 11/19/19 17:38 2 I&O- Last 24 Hours up to 6 AM 11/20/19 06:00 Intake Total 755 ml Output Total 825 ml Balance -70 ml Rehana Vasquez November 20, 2019 09:04
[2019-11-20] MEDS: LACTIC ACID 12% LOTION 225 GM BTL TOP SCH ×2 (10:33→22:05)
[2019-11-20] MEDS: oxyCODONE 5MG TAB PO PRN ×2 (11:57→22:07)
--- NOTE | 2019-11-20 13:00 | IPN ---
DATE OF VISIT: 11/19/2019 The patient went down angiogram, performed by Dr. Mcdaniels, today. The patient is complaining of some left-sided flank pain near where the insertion site of the catheter was made in the left femoral artery. The patient does have chronic hip pain in that left hip where he has such bad sclerosis that he is unable to flex the hip at all and has to lay down to travel in a car and unable to sit in a chair. However, the patient does say that the pain is a little bit further up and more on the side into his flank and does not feel like his normal chronic hip pain. The patient says that the procedure went well and his foot does feel better at this time, and he does not have any complaints of pain in his leg. PHYSICAL EXAMINATION: VITAL SIGNS: Temperature was 97.6, pulse 69, respiratory rate 16, blood pressure 15/67, pulse oximetry 96% on room air. HEENT: Was normocephalic, atraumatic with anicteric sclerae. Patient did have moist mucous membranes. CARDIOVASCULAR: Was irregularly irregular rate and rhythm with no murmurs, rubs or gallops. RESPIRATORY: Was clear to auscultation bilaterally. ABDOMEN: There was a tense area on the left flank that was exquisitely tender to the touch. The rest of the abdomen was soft and nontender. EXTREMITIES: The ulceration on the dorsum of the right foot showed healthy granulation tissue. The patient's legs have bilateral redness with scaling present. The patient does have an amputation of the first digit on the left foot. LABORATORY: White blood cell 13.6, hemoglobin 11.4, hematocrit 39.5, platelets 383. Sodium 140, potassium 4.5, chloride 103, bicarbonate 34, BUN 33, creatinine 1.21, glucose 177, calcium 8.6, magnesium 2.0, C-reactive protein 3.33. ASSESSMENT AND PLAN: 1. Acute osteomyelitis with gangrene of the right first metatarsal and middle/medial cuneiform bone. The patient will continue on intravenous (IV) Zosyn for the time being. Based on the culture results, the patient may be able to switched to an oral medication like Augmentin or even amoxicillin which should cover for all the bacteria that are growing. For now, the patient will continue with IV Zosyn. 2. Abdominal pain. We did contact Dr. Mcdaniels of vascular surgery, who did go and see the patient and diagnosed him with a postoperative hematoma. The patient was brought back down to the operating room for further intervention. 3. Wound on the posterior left calf. Does not appear infective at this time. 4. Peripheral vascular disease, which the patient had angiogram to help fix the patient's circulation in his right leg. Plan is to continue IV Zosyn with hopes to send the patient home on oral antibiotics, possibly Augmentin or amoxicillin. The patient will followup with Dr. Hancock after discharge and will followup with Dr. Powers for further wound care. My faculty preceptor for this patient encounter was physically present during the encounter and was fully available. All aspects of the patient interview, examination, medical decision making process, and medical care plan development were reviewed and approved by the faculty preceptor. The faculty preceptor is aware and concurs with the plan as stated in the body of this note and will attest to such by his/her co-signature.
[2019-11-20 14:00] VITALS: BP 107/69
--- NOTE | 2019-11-20 14:19 | IPNPDOC ---
Date Seen The patient was seen on 11/20/19. Progress Note SUBJECTIVE: Patient is a 64yM with PMH of PAD presents with acute osteomyelitis complicated by PAD. Patient is status post debridement of the right first metatarsal and middle cuneiform bone, ID consult to, currently on Zosyn and will require a 6 week course. POD#1 (11/19/19) s/p vascular surgery RLE. Pain controlled, no overnight events. OBJECTIVE PHYSICAL EXAMINATION: VITAL SIGNS: Please see below. GENERAL: A thin elderly male in No distress, speaking in full se ntences HEENT: Normocephalic, atraumatic, moist mucous membranes NECK: Supple CARDIOVASCULAR EXAMINATION: S1, S2 RESPIRATORY EXAMINATION: CTAB ABDOMINAL EXAMINATION: Soft, nontender, nondistended, positive bowel sounds EXTREMITIES: Both RLE and LLE warmer, trace edema, erythema SKIN: No additional rash NEUROLOGICAL EXAMINATION: Awake PSYCHIATRIC EXAMINATION: Calm and cooperative, appropriate affect LABORATORY DATA, IMAGING STUDIES, MICROBIOLOGY: Please see below. ASSESSMENT AND PLAN: Patient is a 64yM with PMH of PAD presents with acute osteomyelitis complicated by PAD. Patient is status post debridement of the right first metatarsal and middle cuneiform bone, ID consult to, currently on Zosyn and will require a 6 week course. POD#0 (11/19/19) s/p vascular surgery RLE. #Acute osteomyelitis, right 1st metatarsal, middle cuneiform bone complicated by PAD -Debridement By Dr. Romano for R foot gangrene 11/13/19 (POD#7). Antibiotic therapy per Dr. Hancock, f/u on recs #POD#1 (11/19/19) s/p arterial femoral angiogram of the R common femoral artery and superficial femoral artery, angioplasty of the superficial femoral artery and popliteal artery, stenting of the right distal SFA to mid popliteal by Dr. Mcdaniels -recommendations for diabetic, high protein diet -resume eliquis, despite slight decrease in hemoglobin to 10, hemodynamically stable, tolerating Eliquis, if hemoglobin starts declining, will hold Eliquis -light activity after 5 PM, no strenuous activity or lifting greater than 5 pounds for 48 hours with head of bed should be less then 15 while on bedrest -pain controlled -d/w vascular #DM, ISS, hypoglycemic protocol #HTN: cont home meds DVT ppx: NOAC Full code Dispo: f/u with PT, home PT vs rehab 11/21/19 vs 11/22/19 32 minutes were spent on care coordination VS, I&O, 24H, Fishbone Vital Signs/I&O Vital Signs Date Time Temp Pulse Resp B/P (MAP) Pulse Ox O2 Delivery O2 Flow Rate FiO2 11/20/19 12:27 15 11/20/19 06:00 98.4 82 118/66 (83) 92 Room Air 11/19/19 17:38 2 I&O- Last 24 Hours up to 6 AM 11/20/19 06:00 Intake Total 755 ml Output Total 825 ml Balance -70 ml Laboratory Data 24H LABS Laboratory Tests 2 11/19/19 16:43: Immature Granulocyte % (Auto) 0.9, Neutrophils (%) (Auto) 79.1H, Lymphocytes (%) (Auto) 10.8L, Monocytes (%) (Auto) 7.3H, Eosinophils (%) (Auto) 1.3, Basophils (%) (Auto) 0.6, Neutrophils # (Auto) 10.8H, Lymphocytes # (Auto) 1.5, Monocytes # (Auto) 1.0H, Eosinophils # (Auto) 0.2, Basophils # (Auto) 0.1, Nucleated Red Blood Cells % (auto) 0.0 11/19/19 19:31: Bedside Glucose (Misc Panel) 171H 11/19/19 20:16: Bedside Glucose (Misc Panel) 240H 11/19/19 23:15: Nucleated Red Blood Cells % (auto) 0.0 11/20/19 05:26: Nucleated Red Blood Cells % (auto) 0.0, Anion Gap 6L, Glomerular Filtration Rate 56.2, Calcium Level 8.6L, Magnesium Level 1.9 11/20/19 11:55: Bedside Glucose (Misc Panel) 251H CBC/BMP Laboratory Tests 11/19/19 16:43 11/19/19 23:15 11/20/19 05:26 Microbiology Microbiology 11/13/19 Gram Stain - Final, Complete 11/13/19 Wound Culture - Final, Complete Streptococcus Parasanguinis Corynebacterium Species 11/13/19 Gram Stain - Final, Complete 11/13/19 Wound Culture - Final, Complete Proteus Mirabilis Strep Agalactiae Group B 11/13/19 Anaerobic Culture - Final, Complete Gemella Morbillorum 11/12/19 Blood Culture - Final, Complete NO GROWTH AFTER 5 DAYS 11/12/19 Blood Culture - Final, Complete NO GROWTH AFTER 5 DAYS ROSARIO FRASER MD November 20, 2019 14:19
--- NOTE | 2019-11-20 17:10 | IPN ---
DATE OF SERVICE: 11/20/2019 Patient seen and examined. States he is doing well. He had his angioplasty yesterday with some ballooning and stenting, which was performed. He has remained afebrile. White blood cell count is 12.1. Most recent CRP is 3.33. Lower extremity examination: Right foot wound is inspected. There is significantly more granulation tissue than when last examined, and foot does appear generally better perfused. There is some minimal necrotic tissue at the margins of the wound. ASSESSMENT: A 64-year-old male with osteomyelitis and peripheral vascular disease, status post stenting. PLAN: Antibiotics per infectious disease recommendations. Upon discharge he should have followup with wound care center as well as myself within 1 week. Continue current dressing changes, which will be the same upon discharge.
[2019-11-20] MEDS ORDERED: APIXABAN 5 MG TAB (ELIQUIS) PO SCH (20:00)
[2019-11-20 22:00] VITALS: BP 132/76
[2019-11-20] MEDS: PRAVASTATIN 20 MG TAB PO SCH (22:03)
[2019-11-20] MEDS: ASPIRIN 81 MG ENTERIC TAB PO SCH (22:03)
[2019-11-21] MEDS: PIPERACILLIN/TAZOBACTAM SOD 3.375 GM in D5W MINI-BAG PLUS 50 ML IV SCH ×4 (03:49→21:13)
[2019-11-21] MEDS: SLF 3 ML SYR IV SCH ×3 (05:00→21:14)
[2019-11-21 05:53] LABS: HEMOGLOBIN 9.3 g/dl (13.5-17.5); MEAN CORPUSCULAR HEMOGLOBIN 23.4 pg (27.0-33.0); MEAN CORPUSCULAR HGB CONC 29.1 g/dl (32.0-36.5); MEAN CORPUSCULAR VOLUME 80.4 fl (80.0-96.0); PLATELET COUNT, AUTOMATED 272 10^3/uL (150-450); RED BLOOD COUNT 3.98 10^6/uL (4.30-6.10)
[2019-11-21 06:00] VITALS: BP 147/74
[2019-11-21 06:21] LABS: BLOOD UREA NITROGEN 31 MG/DL (7-18); CALCIUM LEVEL 8.5 MG/DL (8.8-10.2); CARBON DIOXIDE LEVEL 30 MEQ/L (21-32); CHLORIDE LEVEL 106 MEQ/L (98-107); CREATININE FOR GFR 1.17 MG/DL (0.70-1.30); GLOMERULAR FILTRATION RATE > 60.0 (>49); GLUCOSE, FASTING 214 MG/DL (70-100); MAGNESIUM LEVEL 1.8 MG/DL (1.8-2.4); POTASSIUM SERUM 4.7 MEQ/L (3.5-5.1); SODIUM LEVEL 141 MEQ/L (136-145)
--- NOTE | 2019-11-21 09:08 | IPNPDOC ---
Text Note Date of Service The patient was seen on 11/21/19. NOTE Vascular surgery. Dr. Mcdaniels 64year oldM with a past medical history significant for PAD, previously followed by Dr. Harris with angiogram left lower extremity October 2017 with angioplasty left popliteal, left SFA, left femoral and left external iliac artery. The patient was admitted with sepsis and wounds of the right foot 11/12/19. The patient is status post arteriogram right lower extremity 11/19/[address] Mcdaniels S/P angioplasty/stent superficial femoral artery and popliteal artery. Post procedure the patient was noted to have suspected left flank retroperi toneal hematoma developing left flank and left groin tenderness. The patient was taken back to the IR suite as per Dr. Mcdaniels 11/19/19 however there was no active bleeding or extravasation noted left iliofemoral arteries. Yesterday he had reported his pain was improved and overall he was feeling better however, this morning the patient states he is having pain in the abdomen and left flank area. VSS. Heart rate 87, systolic blood pressure 147. There is an area of demarcation in the left groin area, there is no erythema beyond the line of demarcation, no ecchymosis. However there is increased tenderness with palpation this morning across the abdomen and left flank area. Abdomen is noted to be firm with palpation and more distended. Dressings are intact over the right foot and ankle area and left foot, ankle and pretibial area. Baseline hemoglobin is noted to be 12.5, yesterday 10.1. This morning it is noted to be 9.3 which is concerning for possible ongoing blood loss. The patient has had type and screen, no transfusion thus far. Eliquis was restarted 11/19. We have requested STAT CTA abdomen/pelvis to further evaluate for any sources of bleeding. Continue to closely monitor. VS,Fishbone, I+O VS, Fishbone, I+O Laboratory Tests 11/21/19 05:26 11/21/19 05:27 Vital Signs Date Time Temp Pulse Resp B/P (MAP) Pulse Ox O2 Delivery O2 Flow Rate FiO2 11/21/19 06:00 97.4 87 17 147/74 (98) 90 Room Air 11/19/19 17:38 2 I&O- Last 24 Hours up to 6 AM 11/21/19 06:00 Intake Total 1840 ml Output Total 2800 ml Balance -960 ml Rehana Vasquez November 21, 2019 09:08
[2019-11-21] MEDS ORDERED: ISOVUE-370 76% 100ML VIAL As Ordered ONE (09:10)
[2019-11-21] MEDS: MAGNESIUM GLUCONATE 500 MG TAB PO SCH (09:39)
[2019-11-21] MEDS: PANTOPRAZOLE 40MG TAB (PROTONIX) PO SCH (09:39)
[2019-11-21] MEDS: BACLOFEN 5MG PER 1/2 TABLET GT SCH ×3 (09:39→20:39)
[2019-11-21] MEDS: GABAPENTIN 300 MG CAP PO SCH ×3 (09:39→20:38)
[2019-11-21] MEDS: APIXABAN 5 MG TAB (ELIQUIS) PO SCH ×3 (09:40→20:39)
[2019-11-21] MEDS: amLODIPine 10 MG TAB PO SCH (09:40)
[2019-11-21] MEDS: DULoxetine 30 MG CAP (CYMBALTA) PO SCH (09:40)
[2019-11-21] MEDS: lisinopriL 5 MG TAB PO SCH (09:40)
[2019-11-21] MEDS: METOPROLOL TART 25 MG TABLET PO SCH ×2 (09:40→20:39)
[2019-11-21] MEDS: HumaLOG INSULIN (NovoLOG) PER UNIT SC SCH ×4 (09:41→20:31)
[2019-11-21] MEDS: LEVEMIR (INSULIN DETEMIR) 1 UNITS/0.01ML SC SCH ×2 (09:41→20:39)
[2019-11-21] MEDS: LACTIC ACID 12% LOTION 225 GM BTL TOP SCH ×2 (09:42→20:38)
--- NOTE | 2019-11-21 09:59 | IPNPDOC ---
Date Seen The patient was seen on 11/21/19. Progress Note Patient seen and examined this morning with Rehana BASILIO. Again, he was having increased left flank and hip and groin pain. All of these areas were firm to touch. His hemoglobin drifted down again today to 9.3. Baseline is 12. My concern was that for some reason he was having new bleeding from the access site, possibly due to eliquis, versus a retroperitoneal bleed spontaneously from another area, versus other pathology that we might be missing. I ordered a CTA stat, and I have reviewed this, and it appears the patient does have a retroperitoneal hematoma with a 3 cm fluid collection anterior to the external iliac artery on the left, some resolving hematoma tracking up in the retrope ritoneal behind the left kidney with another fluid collection that is about 3 cm wide by 10 cm long along the left flank. There is also edema in the area, and edema over the left hip and flank. I do not see any signs of active bleeding, no contrast extravasation. After reviewing the CT scan, I do believe the patient had oozing postprocedure that resolved on its own and resulted in a retroperitoneal hematoma that should resolve on its own. I'm still a bit unclear why the patient is having increased firmness and tenderness today compared to yesterday, and this might be related to increased edema in the area versus muscle spasms from his chronic musculoskeletal issues. We will continue to follo w closely. No intervention needed at this time. VS, I&O, 24H, Fishbone Vital Signs/I&O Vital Signs Date Time Temp Pulse Resp B/P (MAP) Pulse Ox O2 Delivery O2 Flow Rate FiO2 11/21/19 09:40 147/74 11/21/19 06:00 97.4 87 17 90 Room Air 11/19/19 17:38 2 I&O- Last 24 Hours up to 6 AM 11/21/19 06:00 Intake Total 1840 ml Output Total 2800 ml Balance -960 ml Laboratory Data 24H LABS Laboratory Tests 2 11/20/19 11:55: Bedside Glucose (Misc Panel) 251H 11/20/19 16:29: Bedside Glucose (Misc Panel) 233H 11/20/19 21:33: Bedside Glucose (Misc Panel) 281H 11/21/19 05:26: Anion Gap 5L, Glomerular Filtration Rate > 60.0, Calcium Level 8.5L, Magnesium Level 1.8 11/21/19 05:27: Nucleated Red Blood Cells % (auto) 0.0 CBC/BMP Laboratory Tests 11/21/19 05:26 11/21/19 05:27 Microbiology Microbiology 11/13/19 Gram Stain - Final, Complete 11/13/19 Wound Culture - Final, Complete Streptococcus Parasanguinis Corynebacterium Species 11/13/19 Gram Stain - Final, Complete 11/13/19 Wound Culture - Final, Complete Proteus Mirabilis Strep Agalactiae Group B 11/13/19 Anaerobic Culture - Final, Complete Gemella Morbillorum 11/12/19 Blood Culture - Final, Complete NO GROWTH AFTER 5 DAYS 11/12/19 Blood Culture - Final, Complete NO GROWTH AFTER 5 DAYS TERRANCE STARKS MD November 21, 2019 09:59
[2019-11-21] MEDS: oxyCODONE 5MG TAB PO PRN ×2 (10:09→15:12)
[2019-11-21] MEDS: fentaNYL 100 MCG/HR PATCH TOP SCH (10:10)
[2019-11-21] MEDS: FENTANYL REMOVAL DOCUMENTATION MISC XX SCH (10:11)
--- NOTE | 2019-11-21 10:24 | REP ---
CT ANGIOGRAM ABDOMEN AND PELVIS: TECHNIQUE: CT angiogram of the abdomen and pelvis performed following the intravenous administration of 100 mL of Isovue 370. Sagittal, coronal and 3D MIP reconstruction images are performed. In the visualized lung bases, there are underlying fibrotic changes. There is a small left pleural effusion with mild adjacent atelectasis/infiltrate. Liver, spleen, adrenals, pancreas and kidneys appear unremarkable. Mildly enlarged lymph nodes are seen along the iliac vessels and in both inguinal regions. No free air is seen. Ill-defined hematoma is seen in the left retroperitoneum and extending from the inferior margin of the spleen down to the left external iliac artery. No bowel abnormality is seen. The abdominal aorta is normal in caliber with no aneurysm. There is moderate diffuse atherosclerotic plaquing. There is mild plaquing and narrowing at the origin if the celiac and superior mesenteric arteries. There is mild narrowing at the origin of the inferior mesenteric artery. There is mild narrowing of the origin of the renal arteries bilaterally without significant renal artery stenosis. Moderate circumferential calcific plaque is noted at the origin of the right common iliac artery. There is a stent in distal right common iliac artery extending into the external iliac artery. The stent is patent. There is mild to moderate diffuse variable narrowing throughout this region. There is mild diffuse plaquing and narrowing of the right common femoral artery. There appears to be mild to moderate stenosis at the origin of the right superficial femoral artery. The left common iliac artery demonstrates moderate diffuse circumferential plaquing. There appears to be a stent in the distal common iliac artery extending into the external iliac artery. There is patent flow with mild to moderate diffuse variable narrowing. There is mild scattered plaquing and narrowing in the left common femoral artery. There is mild stenosis at the origin of the left superficial femoral artery. Severe arthritic changes are seen at the left hip joint. There are moderately severe arthritic changes of the right hip joint as well as of the lumbar spine and sacroiliac joints. IMPRESSION: Small pleural effusion with mild adjacent left basilar atelectasis/infiltrate. Diffuse left retroperitoneal hematoma extending from the inferior margin of the spleen to the level of the left external iliac artery. Bilateral common and external artery stents with patent flow through the stents. Electronically Signed by Luther Meza MD 11/21/2019 12:54 P
[2019-11-21 14:00] VITALS: BP 142/75
--- NOTE | 2019-11-21 15:21 | IPNPDOC ---
Date Seen The patient was seen on 11/21/19. Progress Note SUBJECTIVE: SUBJECTIVE: Patient is a 64yM with PMH of PAD presents with acute osteomyelitis complicated by PAD. Patient is status post debridement of the right first metatarsal and middle cuneiform bone, ID consult to, currently on Zosyn and will require a 6 week course. POD#2 (11/19/19) s/p vascular surgery RLE. Pain uncontrolled, reports back pain, imaging reveals stable hematoma per vascular. His wound cx are growing streptococcus parasanguinis, Proteus mirabilis, group B strep, gemella morbilliform, with possible dc on po Abx such as Augmentin, will f/u with ID. blood cultures are negative for any growth. Hb declined to 9.3. OBJECTIVE PHYSICAL EXAMINATION: VITAL SIGNS: Please see below. GENERAL: A thin elderly male in No distress, speaking in full sentences HEENT: Normocephalic, atraumatic, moist mucous membranes NECK: Supple CARDIOVASCULAR EXAMINATION: S1, S2 RESPIRATORY EXAMINATION: CTAB ABDOMINAL EXAMINATION: Soft, nontender, nondistended, positive bowel sounds Back: firm to touch, when compared to R (soft) EXTREMITIES: Both RLE and LLE warmer, trace edema, erythema SKIN: No additional rash NEUROLOGICAL EXAMINATION: Awake PSYCHIATRIC EXAMINATION: Calm and cooperative, appropriate affect LABORATORY DATA, IMAGING STUDIES, MICROBIOLOGY: Please see below. ASSESSMENT AND PLAN: Patient is a 64yM with PMH of PAD presents with acute osteomyelitis complicated by PAD. Patient is status post debridement of the r ight first metatarsal and middle cuneiform bone, ID consult to, currently on Zosyn and will require a 6 week course. POD#2 (11/19/19) s/p vascular surgery RLE. #retroperitoneal hematoma - will hold Eliquis, retroperitoneal hematoma dx 11/22/19, stable and no intervention at this time -CTA. Abdomen and pelvis:Diffuse left retroperitoneal hematoma extending from the inferior margin of the spleen to the level of the left external iliac artery -trial of baclofen #Acute osteomyelitis, right 1st metatarsal, middle cuneiform bone complicated by PAD -Debridement By Dr. Romano for R foot gangrene 11/13/19 (POD#8). Antibiotic therapy per Dr. Hancock, f/u on recs -Old with podiatry as outpatient in one week, follow-up with wound clinic #POD#2 (11/19/19) s/p arterial femoral angiogram of the R common femoral artery and superficial femoral artery, angioplasty of the superficial femoral artery and popliteal artery, stenting of the right distal SFA to mid popliteal by Dr. Mcdaniels -recommendations for diabetic, high protein diet -light activity after 5 PM, no strenuous activity or lifting greater than 5 pounds for 48 hours with head of bed should be less then 15 while on bedrest -pain controlled -d/w vascular -f/u with podiatry 1 week s/p dc #DM, ISS, hypoglycemic protocol #HTN: cont home meds DVT ppx: NOAC Full code Dispo: f/u with PT, home PT vs rehab, earliest dc on 11/22/19 32 minutes were spent on care coordination VS, I&O, 24H, Fishbone Vital Signs/I&O Vital Signs Date Time Temp Pulse Resp B/P (MAP) Pulse Ox O2 Delivery O2 Flow Rate FiO2 11/21/19 14:00 98.5 74 19 142/75 (97) 94 Room Air 11/19/19 17:38 2 I&O- Last 24 Hours up to 6 AM 11/21/19 06:00 Intake Total 1840 ml Output Total 2800 ml Balance -960 ml Laboratory Data 24H LABS Laboratory Tests 2 11/20/19 16:29: Bedside Glucose (Misc Panel) 233H 11/20/19 21:33: Bedside Glucose (Misc Panel) 281H 11/21/19 05:26: Anion Gap 5L, Glomerular Filtration Rate > 60.0, Calcium Level 8.5L, Magnesium Level 1.8 11/21/19 05:27: Nucleated Red Blood Cells % (auto) 0.0 11/21/19 11:31: Bedside Glucose (Misc Panel) 185H CBC/BMP Laboratory Tests 11/21/19 05:26 11/21/19 05:27 Microbiology Microbiology 11/13/19 Gram Stain - Final, Complete 11/13/19 Wound Culture - Final, Complete Streptococcus Parasanguinis Corynebacterium Species 11/13/19 Gram Stain - Final, Complete 11/13/19 Wound Culture - Final, Complete Proteus Mirabilis Strep Agalactiae Group B 11/13/19 Anaerobic Culture - Final, Complete Gemella Morbillorum 11/12/19 Blood Culture - Final, Complete NO GROWTH AFTER 5 DAYS 11/12/19 Blood Culture - Final, Complete NO GROWTH AFTER 5 DAYS ROSARIO FRASER MD November 21, 2019 15:21
[2019-11-21] MEDS: PRAVASTATIN 20 MG TAB PO SCH (20:38)
[2019-11-21] MEDS: ASPIRIN 81 MG ENTERIC TAB PO SCH (20:39)
[2019-11-21 22:00] VITALS: BP 124/74
[2019-11-22] MEDS: oxyCODONE 5MG TAB PO PRN ×3 (03:41→22:48)
[2019-11-22] MEDS: SLF 3 ML SYR IV SCH ×3 (03:42→22:32)
[2019-11-22] MEDS: PIPERACILLIN/TAZOBACTAM SOD 3.375 GM in D5W MINI-BAG PLUS 50 ML IV SCH ×4 (03:42→22:31)
[2019-11-22 06:00] VITALS: BP 151/78
--- NOTE | 2019-11-22 06:58 | IPN ---
DATE: 11/21/2019 Aurelio is doing better than a couple days ago. The back pain from retroperitoneal hematoma has decreased. He has no pain in the right leg. He continues on IV Zosyn. He had angioplasty of the right lower extremity done by Dr. Mcdaniels. No fever or chills. No cough or shortness of breath. Temperature is 98.5, pulse 74, respirations 19, blood pressure 142/75, O2 sat 94% on room air. Heart: Normal S1, S2. Distant. No murmurs appreciated. Lungs are clear. No wheezes or rhonchi anteriorly. Abdomen: Obese. Soft. Tender in the left upper quadrant and left flank area with no ecchymosis noted on the skin. Extremities with very tough skin, discolored, erythematous on the right side. Hyperpigmented venous changes on the left side. Necrotic open wound of the right foot, unchanged status post debridement. 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 Ulcer on the calf muscles measuring about 10 cm with granulation tissue. IMPRESSION: 1. Acute osteomyelitis of the right foot with gangrene status post debridement and metatarsal debridement of the first, second and cuneiform bones. The patient is on IV Zosyn day #8. He will need 6 weeks of antibiotics. They do not need to be necessarily IV. As long as he is in the hospital, would continue with IV Zosyn and then will decide to switch to by mouth upon discharge. 2. Retroperitoneal hematoma. She currently on hold. Diagnosed 11/22/2019 after angiogram. 3. Peripheral vascular disease status post angioplasty. PLAN: Continue IV Zosyn while the patient is in hospital. I do not anticipate his discharge prior to next week. LABORATORY DATA: White count 11, hemoglobin 9.3, hematocrit 32, platelets 272. Sodium 141, potassium 4.7, chloride 106, bicarb 30, BUN 31, creatinine 1.17, glucose 214, calcium 8.5, magnesium 1.8, CRP 3.3 down from 19. Wound culture was positive for group B strep, Proteus Gemella and Streptococcus.
[2019-11-22 08:47] LABS: HEMATOCRIT 34.3 % (42.0-52.0); HEMOGLOBIN 10.1 g/dl (13.5-17.5); MEAN CORPUSCULAR HEMOGLOBIN 23.7 pg (27.0-33.0); MEAN CORPUSCULAR HGB CONC 29.4 g/dl (32.0-36.5); MEAN CORPUSCULAR VOLUME 80.3 fl (80.0-96.0); PLATELET COUNT, AUTOMATED 280 10^3/uL (150-450); RED BLOOD COUNT 4.27 10^6/uL (4.30-6.10)
[2019-11-22] MEDS: MAGNESIUM GLUCONATE 500 MG TAB PO SCH (08:57)
[2019-11-22] MEDS: PANTOPRAZOLE 40MG TAB (PROTONIX) PO SCH (08:57)
[2019-11-22] MEDS: GABAPENTIN 300 MG CAP PO SCH ×3 (08:58→22:29)
[2019-11-22] MEDS: DULoxetine 30 MG CAP (CYMBALTA) PO SCH (08:58)
[2019-11-22] MEDS: LEVEMIR (INSULIN DETEMIR) 1 UNITS/0.01ML SC SCH ×2 (08:58→22:31)
[2019-11-22] MEDS: HumaLOG INSULIN (NovoLOG) PER UNIT SC SCH ×4 (08:59→22:30)
[2019-11-22] MEDS: BACLOFEN 5MG PER 1/2 TABLET GT SCH (09:00)
[2019-11-22] MEDS: METOPROLOL TART 25 MG TABLET PO SCH ×2 (09:00→22:35)
[2019-11-22] MEDS: amLODIPine 10 MG TAB PO SCH (09:00)
[2019-11-22] MEDS: lisinopriL 5 MG TAB PO SCH (09:02)
[2019-11-22 09:03] LABS: BLOOD UREA NITROGEN 26 MG/DL (7-18); CARBON DIOXIDE LEVEL 31 MEQ/L (21-32); CHLORIDE LEVEL 106 MEQ/L (98-107); CREATININE FOR GFR 1.15 MG/DL (0.70-1.30); GLOMERULAR FILTRATION RATE > 60.0 (>49); GLUCOSE, FASTING 195 MG/DL (70-100); POTASSIUM SERUM 4.5 MEQ/L (3.5-5.1); SODIUM LEVEL 141 MEQ/L (136-145)
[2019-11-22] MEDS: LACTIC ACID 12% LOTION 225 GM BTL TOP SCH ×2 (09:03→22:31)
[2019-11-22] MEDS ORDERED: MORPHINE 4 MG/ML 1ML VIAL/SYRINGE (J2270) IV ONE (09:15)
--- NOTE | 2019-11-22 10:12 | IPNPDOC ---
Text Note Date of Service The patient was seen on 11/22/19. NOTE Vascular surgery. Dr. Mcdaniels 64year oldM with a past medical history significant for PAD, previously followed by Dr. Harris with angiogram left lower extremity October 2017 with angioplasty left popliteal, left SFA, left femoral and left external iliac artery. The patient was admitted with sepsis and wounds of the right foot 11/12/19. The patient is status post arteriogram right lower extremity 11/19/[address] Mcdaniels S/P angioplasty/stent superficial femoral artery and popliteal artery. Post procedure the patient was noted to have suspected left flank retroperitoneal hematoma and was taken back to the IR suite as per Dr. Osmel danielson 11/19/19 however there was no active bleeding or extravasation noted left iliofemoral arteries. The pt had persistent pain and CTA abdomen/pelvis was obtained 11/21/19 indicating retroperitoneal hematoma with a 3 cm fluid collection anterior to the external iliac artery on the left, some resolving hematoma tracking up in the retroperitoneal behind the left kidney with another fluid collection that is about 3 cm wide by 10 cm long along the left flank. There was also edema in the area, and edema over the left hip and flank, no signs of active bleeding, no contrast extravasation. The patient likely had oozing postprocedure that reso lved on its own and resulted in a retroperitoneal hematoma that should resolve on its own. The patient is still having some tenderness with palpation this morning in the left flank area, however this seems to be more of muscle spasm. There is an area of demarcation in the left groin area, there is no erythema beyond the line of demarcation, no ecchymosis. Dressings are intact over the right foot and ankle area and left foot, ankle and pretibial area. Baseline hemoglobin is noted to be 12.5, yesterday 9.3, labs this morning are pending. The patient has had type and screen, no transfusion thus far. Eliquis was held 11/20 Patient is reviewed and examined as per Dr. Mcdaniels this morning. Would recommend to restart Eliquis if the hemoglobin is stable. Await results of labs. Could consider trial of Valium 5 mg every 6 hours as needed for muscle spasm. Can further discuss with the patient's attending physician who is managing the patient's pain regimen.The patient is currently taking oxycodone 10 mg 4 times a day as needed for pain. Baclofen 5 mg 3 times a day was added yesterday to help with muscle spasms. Continue to closely monitor. Addendum. The patient's hemoglobin is noted to be 10.1, will restart the patient's Eliquis. VS,Fishbone, I+O VS, Fishbone, I+O Vital Signs Date Time Temp Pulse Resp B/P (MAP) Pulse Ox O2 Delivery O2 Flow Rate FiO2 11/22/19 06:00 97.4 79 17 151/78 (102) 96 Room Air 11/19/19 17:38 2 I&O- Last 24 Hours up to 6 AM 11/22/19 05:59 Intake Total 940 ml Output Total 1200 ml Balance -260 ml Rehana Vasquez November 22, 2019 10:12
--- NOTE | 2019-11-22 12:52 | IPNPDOC ---
Date Seen The patient was seen on 11/22/19. Progress Note SUBJECTIVE: Patient is a 64yM with PMH of PAD presents with acute osteomyelitis complicated by PAD. Patient is status post debridement of the right first metatarsal and middle cuneiform bone, ID consult to, currently on Zosyn and will require a 6 week course. POD#3 (11/19/19) s/p vascular surgery RLE. Pt complained of back pain on 11/21/2019, CTA of abdomen and pelvis revealed diffuse left retroperitoneal hematoma extending from the inferior margin of the spleen to the level of the left external iliac artery. Hematoma, stable, vascular aware. His wound cx are growing streptococcus parasanguinis, Proteus mirabilis, group B strep, gemella morbilliform, with possible dc on po Abx such as Augmentin, will f/u with ID. Blood cultures are negative for any growth. Hb declined to 9.3. Per ID, recommendations to continue IV antibiotics, Zosyn (today is day 8) hosp italization, plan to transition to by mouth at DC, will require antibiotics for 6 weeks. With discussion with patient, baclofen did not help with back pain, will DC at this time, can also consider increasing baclofen to 10 mg 3 times a day. Also consider trial of Valium 5 mg every 6 hours when necessary if needed. We'll also trial morphine 4 mg 1. OBJECTIVE PHYSICAL EXAMINATION: VITAL SIGNS: Please see below. GENERAL: A thin elderly male in No distress, speaking in full sentences HEENT: Normocephalic, atraumatic, moist mucous membranes NECK: Supple CARDIOVASCULAR EXAMINATION: S1, S2 RESPIRATORY EXAMINATION: CTAB ABDOMINAL EXAMINATION: Soft, nontender, nondistended, positive bowel sounds Back: firm to touch, when compared to R (soft) EXTREMITIES: Both RLE and LLE warmer, trace edema, erythema SKIN: No additional rash NEUROLOGICAL EXAMINATION: Awake PSYCHIATRIC EXAMINATION: Calm and cooperative, appropriate affect LABORATORY DATA, IMAGING STUDIES, MICROBIOLOGY: Please see below. ASSESSMENT AND PLAN: Patient is a 64yM with PMH of PAD presents with acute osteomyelitis complicated by PAD. Patient is status post debridement of the right first metatarsal and middle cuneiform bone, ID consult to, currently on Zosyn and will require a 6 week course. POD#3 (11/19/19) s/p vascular surgery RLE. #retroperitoneal hematoma - will hold Eliquis, retroperitoneal hematoma dx 11/22/19, stable and no intervention at this time, Hemoglobin improved to 10.1 today, and sitter resuming the coagulation tomorrow #Acute osteomyelitis, right 1st metatarsal, middle cuneiform bone complicated by PAD -Debridement By Dr. Romano for R foot gangrene 11/13/19 (POD#8). Antibiotic therapy per Dr. Hancock, f/u on recs -Follow up with podiatry as outpatient in one week, follow-up with wound clinic #POD#3 (11/19/19) s/p arterial femoral angiogram of the R common femoral artery and superficial femoral artery, angioplasty of the superficial femoral artery and popliteal artery, stenting of the right distal SFA to mid popliteal by Dr. Mcdaniels -recommendations for diabetic, high protein diet -light activity after 5 PM, no strenuous activity or lifting greater than 5 pounds for 48 hours with head of bed should be less then 15 while on bedrest -pain management -d/w vascular -f/u with podiatry 1 week s/p dc #DM, ISS, hypoglycemic protocol #HTN: cont home meds DVT ppx: hold NOAC Full code Dispo: f/u with PT, home PT vs rehab, earliest dc on 11/25/19 32 minutes were spent on care coordination VS, I&O, 24H, Fishbone Vital Signs/I&O Vital Signs Date Time Temp Pulse Resp B/P (MAP) Pulse Ox O2 Delivery O2 Flow Rate FiO2 11/22/19 09:43 20 11/22/19 09:02 147/76 11/22/19 09:00 88 11/22/19 06:00 97.4 96 Room Air 11/19/19 17:38 2 I&O- Last 24 Hours up to 6 AM 11/22/19 05:59 Intake Total 940 ml Output Total 1200 ml Balance -260 ml Laboratory Data 24H LABS Laboratory Tests 2 11/21/19 16:36: Bedside Glucose (Misc Panel) 207H 11/21/19 20:19: Bedside Glucose (Misc Panel) 213H 11/22/19 05:33: Bedside Glucose (Misc Panel) 211H 11/22/19 08:27: Nucleated Red Blood Cells % (auto) 0.0, Anion Gap 4L, Glomerular Filtration Rate > 60.0, Calcium Level 9.0 11/22/19 12:09: Bedside Glucose (Misc Panel) 211H CBC/BMP Laboratory Tests 11/22/19 08:27 Microbiology Microbiology 11/13/19 Gram Stain - Final, Complete 11/13/19 Wound Culture - Final, Complete Streptococcus Parasanguinis Corynebacterium Species 11/13/19 Gram Stain - Final, Complete 11/13/19 Wound Culture - Final, Complete Proteus Mirabilis Strep Agalactiae Group B 11/13/19 Anaerobic Culture - Final, Complete Gemella Morbillorum 11/12/19 Blood Culture - Final, Complete NO GROWTH AFTER 5 DAYS 11/12/19 Blood Culture - Final, Complete NO GROWTH AFTER 5 DAYS ROSARIO FRASER MD November 22, 2019 12:52
[2019-11-22 14:00] VITALS: BP 144/70
[2019-11-22] MEDS ORDERED: diazePAM 5 MG TAB PO PRN (16:00)
[2019-11-22] MEDS ORDERED: MORPHINE 4 MG/ML 1ML VIAL/SYRINGE (J2270) IV PRN (16:00)
[2019-11-22] MEDS: BACLOFEN 10 MG TAB PO SCH ×2 (16:45→22:29)
[2019-11-22 22:00] VITALS: BP 124/72
[2019-11-22] MEDS: APIXABAN 5 MG TAB (ELIQUIS) PO SCH (22:29)
[2019-11-22] MEDS: ASPIRIN 81 MG ENTERIC TAB PO SCH (22:29)
[2019-11-22] MEDS: PRAVASTATIN 20 MG TAB PO SCH (22:30)
[2019-11-22] MEDS: DOCUSATE SODIUM 100 MG CAP PO PRN (22:47)
[2019-11-23] MEDS: PIPERACILLIN/TAZOBACTAM SOD 3.375 GM in D5W MINI-BAG PLUS 50 ML IV SCH ×4 (03:02→22:23)
[2019-11-23] MEDS: SLF 3 ML SYR IV SCH ×3 (05:12→22:23)
[2019-11-23 06:00] VITALS: BP 132/81
[2019-11-23 06:52] LABS: HEMATOCRIT 34.8 % (42.0-52.0); HEMOGLOBIN 10.3 g/dl (13.5-17.5); MEAN CORPUSCULAR HEMOGLOBIN 24.3 pg (27.0-33.0); MEAN CORPUSCULAR HGB CONC 29.6 g/dl (32.0-36.5); MEAN CORPUSCULAR VOLUME 82.3 fl (80.0-96.0); PLATELET COUNT, AUTOMATED 304 10^3/uL (150-450); RED BLOOD COUNT 4.23 10^6/uL (4.30-6.10); WHITE BLOOD COUNT 10.6 10^3/uL (4.0-10.0)
[2019-11-23 07:13] LABS: BLOOD UREA NITROGEN 31 MG/DL (7-18); CALCIUM LEVEL 9.1 MG/DL (8.8-10.2); CARBON DIOXIDE LEVEL 33 MEQ/L (21-32); CHLORIDE LEVEL 106 MEQ/L (98-107); CREATININE FOR GFR 1.25 MG/DL (0.70-1.30); GLOMERULAR FILTRATION RATE > 60.0 (>49); GLUCOSE, FASTING 176 MG/DL (70-100); POTASSIUM SERUM 4.7 MEQ/L (3.5-5.1); SODIUM LEVEL 143 MEQ/L (136-145)
[2019-11-23] MEDS: lisinopriL 5 MG TAB PO SCH (09:00)
[2019-11-23] MEDS: LEVEMIR (INSULIN DETEMIR) 1 UNITS/0.01ML SC SCH ×2 (09:00→22:23)
[2019-11-23] MEDS: amLODIPine 10 MG TAB PO SCH (09:00)
[2019-11-23] MEDS: METOPROLOL TART 25 MG TABLET PO SCH ×2 (09:00→22:21)
[2019-11-23] MEDS: MAGNESIUM GLUCONATE 500 MG TAB PO SCH (09:09)
[2019-11-23] MEDS: DULoxetine 30 MG CAP (CYMBALTA) PO SCH (09:09)
[2019-11-23] MEDS: APIXABAN 5 MG TAB (ELIQUIS) PO SCH ×2 (09:10→22:21)
[2019-11-23] MEDS: GABAPENTIN 300 MG CAP PO SCH ×3 (09:10→22:22)
[2019-11-23] MEDS: PANTOPRAZOLE 40MG TAB (PROTONIX) PO SCH (09:10)
[2019-11-23] MEDS: LACTIC ACID 12% LOTION 225 GM BTL TOP SCH ×2 (09:10→22:23)
[2019-11-23] MEDS: HumaLOG INSULIN (NovoLOG) PER UNIT SC SCH ×4 (09:13→22:22)
[2019-11-23] MEDS: BACLOFEN 10 MG TAB PO SCH ×3 (09:13→22:21)
--- NOTE | 2019-11-23 09:15 | IPN ---
DATE OF SERVICE: 11/22/2019 ATTENDING PHYSICIAN: Marvin Hancock MD SUBJECTIVE: The patient is a 64-year-old male who presented to the hospital with osteomyelitis and a foot wound. The patient is currently on intravenous (IV) Zosyn every 6 hours for his osteomyelitis, and his wounds are healing well. The patient had an angiogram performed on 11/19/2019, and ended up developing a hematoma in his left flank. The patient is in quite a bit of pain, especially when moving around or the area is touched but is somewhat comfortable with medication and while laying still. The patient does not have any other acute complaints at this time. PHYSICAL EXAMINATION: VITAL SIGNS: Temperature 97.7, pulse 88, respiratory rate 17, blood pressure 147/76, pulse oximetry 96% on room air. GENERAL: The patient is an alert and oriented male patient who is laying in the bed when we walked into the room. The patient did not appear to be in any acute distress. HEENT: Was normocephalic, atraumatic, with anicteric sclerae and moist mucous membranes. CARDIOVASCULAR: A regular rate and rhythm with no murmurs, rubs, or gallops. RESPIRATORY: Was clear to auscultation bilaterally. ABDOMEN: Was soft and only tender around the left flank area where the hematoma is present. There is no ecchymosis on that skin. The rest of the abdomen is soft and nontender. EXTREMITIES: The patient has a 7 x 5 cm wound on the dorsum of his right foot that shows healthy granulation tissue and no surrounding erythema. There are also small superficial ulcerations on the posterior ankle of the left leg. The patient's bilateral lower extremities have very thick scaling of the skin. LABORATORY: Complete blood count (CBC): White blood cell 11.0, hemoglobin 10.1, hematocrit 34.3, platelets 280. Sodium 141, potassium 4.5, chloride 106, carbon dioxide 31, BUN 26, creatinine 1.15, glucose 195, calcium 9.0. MICROBIOLOGY: The patient's foot cultures on 11/13/2019 showed Streptococcus parasanguinis corynebacterium species, Proteus mirabilis, Streptococcus A agalactiae group B, and Gemella morbillorum. ASSESSMENT AND PLAN: 1. Acute osteomyelitis of the right foot with gangrene, status post metatarsal debridement of the 1st, 2nd, and cuneiform bones. The patient is on intravenous (IV) Zosyn day #9. He will need 6 weeks of antibiotics. They do not need to be IV. We will continue IV Zosyn until the patient is discharged and decide what he will go home with upon discharge. 2. Retroperitoneal hematoma. Eliquis on hold. Diagnosed on 11/19/2019 after angiogram. 3. Peripheral vascular disease, status post angioplasty. PLAN: Continue IV Zosyn while the patient is in the hospital, and we will see the patient again on Monday and decide on by mouth antibiotics upon discharge.
[2019-11-23] MEDS ORDERED: NALOXONE INJ 0.4MG/1ML VIAL (J2310 PER 1MG) IV PRN (09:30)
[2019-11-23] MEDS ORDERED: KETOROLAC 30 MG/ML 1ML VIAL IV PRN (09:30)
--- NOTE | 2019-11-23 09:38 | IPNPDOC ---
Date Seen The patient was seen on 11/23/19. Progress Note SUBJECTIVE: Patient is a 64yM with PMH of PAD presents with acute osteomyelitis complicated by PAD. Patient is status post debridement of the right first metatarsal and middle cuneiform bone, ID consult to, currently on Zosyn and will require a 6 week course. POD#4 (11/19/19) s/p vascular surgery RLE. Pt complained of back pain on 11/21/2019, CTA of abdomen and pelvis revealed diffuse left retroperitoneal hematoma extending from the inferior margin of the spleen to the level of the left external iliac artery. Hematoma, stable, vascular aware. His wound cx are growing streptococcus parasanguinis, Proteus mirabilis, group B strep, gemella morbilliform, with possible dc on po Abx such as Augmentin, will f/u with ID. Blood cultures are negative for any growth. Per ID, recommendations to continue IV antibiotics, Zosyn (today is day 9) hospitalization, plan to transition to by mouth at DC, will require antibiotics for 6 weeks. Pt tolerated baclofen 10mg TID. Also consider trial of Valium 5 mg every 6 hours when necessary if needed. Hb improving, this AM, 10.3. Pain better controlled, patient reports he takes oxycodone 10 every 6 hours scheduled despite the when necessary note. We'll schedule this at this time and observe additional when necessary pain meds. I suspect that scheduling both baclofen and home oxycodone might eliminate additional pain medications. He has not required Valium at this time. OBJECTIVE PHYSICAL EXAMINATION: VITAL SIGNS: Please see below. GENERAL: A thin elderly male in No distress, speaking in full sent ences HEENT: Normocephalic, atraumatic, moist mucous membranes NECK: Supple CARDIOVASCULAR EXAMINATION: S1, S2 RESPIRATORY EXAMINATION: CTAB ABDOMINAL EXAMINATION: Soft, nontender, nondistended, positive bowel sounds Back: tenderness to palpation, but improved from previous EXTREMITIES: Both RLE and LLE warmer, no edema, erythema SKIN: No additional rash NEUROLOGICAL EXAMINATION: Awake PSYCHIATRIC EXAMINATION: Calm and cooperative, appropriate affect LABORATORY DATA, IMAGING STUDIES, MICROBIOLOGY: Please see below. ASSESSMENT AND PLAN: Patient is a 64yM with PMH of PAD presents with acute osteomyelitis complicated by PAD. Patient is status post debridement of the right first metatarsal and middle cuneiform bone, ID consult to, currently on Zosyn and will require a 6 week course. POD#4 (11/19/19) s/p vascular surgery RLE. #retroperitoneal hematoma - will hold Eliquis, retroperitoneal hematoma dx 11/22/19, stable and no intervention at this time, Hemoglobin improved to 10.3 today, consider resuming the coagulation tomorrow 11/23 #Acute osteomyelitis, right 1st metatarsal, middle cuneiform bone complicated by PAD -Debridement By Dr. Romano for R foot gangrene 11/13/19 (POD#10). Antibiotic therapy per Dr. Hancock, f/u on recs, cont Zosyn in hospital and transition to po for a 6 week total Abx course -Follow up with podiatry as outpatient in one week, follow-up with wound clinic #POD#4 (11/19/19) s/p arterial femoral angiogram of the R common femoral artery and superficial femoral artery, angioplasty of the superficial femoral artery and popliteal artery, stenting of the right distal SFA to mid popliteal by Dr. Mcdaniels -recommendations for diabetic, high protein diet -light activity after 5 PM, no strenuous activity or lifting greater than 5 pounds for 48 hours with head of bed should be less then 15 while on bedrest -pain management -d/w vascular -f/u with podiatry 1 week s/p dc #DM, ISS, hypoglycemic protocol #HTN: cont home meds DVT ppx: hold NOAC Full code Dispo: f/u with PT, home PT vs rehab, earliest dc on 11/25/19 VS, I&O, 24H, Fishbone Vital Signs/I&O Vital Signs Date Time Temp Pulse Resp B/P (MAP) Pulse Ox O2 Delivery O2 Flow Rate FiO2 11/23/19 09:17 18 11/23/19 06:00 98.1 75 132/81 (98) 96 Room Air 11/19/19 17:38 2 I&O- Last 24 Hours up to 6 AM 11/23/19 05:59 Intake Total 1100 ml Output Total 1870 ml Balance -770 ml Laboratory Data 24H LABS Laboratory Tests 2 11/22/19 12:09: Bedside Glucose (Misc Panel) 211H 11/22/19 17:38: Bedside Glucose (Misc Panel) 174H 11/22/19 20:25: Bedside Glucose (Misc Panel) 205H 11/23/19 06:05: Nucleated Red Blood Cells % (auto) 0.0, Anion Gap 4L, Glomerular Filtration Rate > 60.0, Calcium Level 9.1 CBC/BMP Laboratory Tests 11/23/19 06:05 Microbiology Microbiology 11/13/19 Gram Stain - Final, Complete 11/13/19 Wound Culture - Final, Complete Streptococcus Parasanguinis Corynebacterium Species 11/13/19 Gram Stain - Final, Complete 11/13/19 Wound Culture - Final, Complete Proteus Mirabilis Strep Agalactiae Group B 11/13/19 Anaerobic Culture - Final, Complete Gemella Morbillorum ROSARIO FRASER MD November 23, 2019 09:38
[2019-11-23] MEDS: oxyCODONE 5MG TAB PO SCH ×3 (11:14→22:26)
--- NOTE | 2019-11-23 12:48 | IPNPDOC ---
Date Seen The patient was seen on 11/23/19. Progress Note Patient seen and examined. Resting comfortably in bed. He says his pain is much improved today. His hemoglobin and platelets continue to trend up. His vitals have been stable. No significant bruising noted at either groin access site. Right lower extremity is warm and well-perfused. Dressings are intact. Left flank pain is a bit better today. When I palpated with the patient asleep it is pretty soft, but he does tense up a bit while awake. I think some of that is muscle spasms. He says the muscle spasms have been better over the last day. We're pleased to hear this. Regarding retroperitoneal hematoma, it is a narrow track of blood from the right groin up behind the left kidney, not taking that much space, but probably irritating nerves in the area. As it resolves, the patient's symptoms should also begin to subside. Hopefully he'll be able to get out of bed and move around more with physical therapy over the next day or 2. We will continue to follow closely. VS, I&O, 24H, Jtbone Vital Signs/I&O Vital Signs Date Time Temp Pulse Resp B/P (MAP) Pulse Ox O2 Delivery O2 Flow Rate FiO2 11/23/19 09:27 18 11/23/19 09:00 84 108/61 11/23/19 06:00 98.1 96 Room Air 11/19/19 17:38 2 I&O- Last 24 Hours up to 6 AM 11/23/19 06:00 Intake Total 1250 ml Output Total 1170 ml Balance 80 ml Laboratory Data 24H LABS Laboratory Tests 2 11/22/19 17:38: Bedside Glucose (Misc Panel) 174H 11/22/19 20:25: Bedside Glucose (Misc Panel) 205H 11/23/19 06:05: Nucleated Red Blood Cells % (auto) 0.0, Anion Gap 4L, Glomerular Filtration Rate > 60.0, Calcium Level 9.1 11/23/19 11:20: Bedside Glucose (Misc Panel) 189H CBC/BMP Laboratory Tests 11/23/19 06:05 Microbiology Microbiology 11/13/19 Gram Stain - Final, Complete 11/13/19 Wound Culture - Final, Complete Streptococcus Parasanguinis Corynebacterium Species 11/13/19 Gram Stain - Final, Complete 11/13/19 Wound Culture - Final, Complete Proteus Mirabilis Strep Agalactiae Group B 11/13/19 Anaerobic Culture - Final, Complete Gemella Morbillorum TERRANCE STARKS MD November 23, 2019 12:48
[2019-11-23 14:00] VITALS: BP 132/78
[2019-11-23 22:00] VITALS: BP 151/83
[2019-11-23] MEDS: ASPIRIN 81 MG ENTERIC TAB PO SCH (22:21)
[2019-11-23] MEDS: PRAVASTATIN 20 MG TAB PO SCH (22:22)
[2019-11-23] MEDS: DOCUSATE SODIUM 100 MG CAP PO PRN (22:24)
[2019-11-24] MEDS: PIPERACILLIN/TAZOBACTAM SOD 3.375 GM in D5W MINI-BAG PLUS 50 ML IV SCH ×4 (05:25→21:30)
[2019-11-24] MEDS: oxyCODONE 5MG TAB PO SCH ×4 (05:27→21:31)
[2019-11-24] MEDS: SLF 3 ML SYR IV SCH ×3 (05:27→21:29)
[2019-11-24 06:00] VITALS: BP 143/77
[2019-11-24 06:59] LABS: HEMATOCRIT 33.9 % (42.0-52.0); HEMOGLOBIN 9.9 g/dl (13.5-17.5); MEAN CORPUSCULAR HEMOGLOBIN 23.9 pg (27.0-33.0); MEAN CORPUSCULAR HGB CONC 29.2 g/dl (32.0-36.5); MEAN CORPUSCULAR VOLUME 81.9 fl (80.0-96.0); PLATELET COUNT, AUTOMATED 292 10^3/uL (150-450); RED BLOOD COUNT 4.14 10^6/uL (4.30-6.10); WHITE BLOOD COUNT 9.8 10^3/uL (4.0-10.0)
[2019-11-24 07:23] LABS: BLOOD UREA NITROGEN 30 MG/DL (7-18); CARBON DIOXIDE LEVEL 32 MEQ/L (21-32); CHLORIDE LEVEL 105 MEQ/L (98-107); CREATININE FOR GFR 1.27 MG/DL (0.70-1.30); GLOMERULAR FILTRATION RATE > 60.0 (>49); GLUCOSE, FASTING 260 MG/DL (70-100); POTASSIUM SERUM 4.6 MEQ/L (3.5-5.1); SODIUM LEVEL 141 MEQ/L (136-145)
[2019-11-24] MEDS: MIRALAX *UNIT DOSE* 17GM PACKET PO PRN (08:50)
[2019-11-24] MEDS: APIXABAN 5 MG TAB (ELIQUIS) PO SCH ×2 (08:50→21:28)
[2019-11-24] MEDS: DULoxetine 30 MG CAP (CYMBALTA) PO SCH (08:50)
[2019-11-24] MEDS: MAGNESIUM GLUCONATE 500 MG TAB PO SCH (08:50)
[2019-11-24] MEDS: DOCUSATE SODIUM 100 MG CAP PO PRN ×2 (08:50→21:30)
[2019-11-24] MEDS: lisinopriL 5 MG TAB PO SCH (08:51)
[2019-11-24] MEDS: BACLOFEN 10 MG TAB PO SCH ×3 (08:51→21:28)
[2019-11-24] MEDS: amLODIPine 10 MG TAB PO SCH (08:51)
[2019-11-24] MEDS: GABAPENTIN 300 MG CAP PO SCH ×3 (08:51→21:28)
[2019-11-24] MEDS: PANTOPRAZOLE 40MG TAB (PROTONIX) PO SCH (08:51)
[2019-11-24] MEDS: METOPROLOL TART 25 MG TABLET PO SCH ×2 (08:52→21:28)
[2019-11-24] MEDS: HumaLOG INSULIN (NovoLOG) PER UNIT SC SCH ×4 (08:53→21:29)
[2019-11-24] MEDS: LEVEMIR (INSULIN DETEMIR) 1 UNITS/0.01ML SC SCH ×2 (08:53→21:29)
[2019-11-24] MEDS: fentaNYL 100 MCG/HR PATCH TOP SCH (10:22)
[2019-11-24] MEDS: LACTIC ACID 12% LOTION 225 GM BTL TOP SCH ×2 (10:22→21:29)
[2019-11-24] MEDS: FENTANYL REMOVAL DOCUMENTATION MISC XX SCH (10:37)
--- NOTE | 2019-11-24 12:07 | IPNPDOC ---
Date Seen The patient was seen on 11/24/19. Progress Note SUBJECTIVE: Patient is a 64yM with PMH of PAD presents with acute osteomyelitis complicated by PAD. Patient is status post debridement of the right first metatarsal and middle cuneiform bone, ID consult to, currently on Zosyn and will require a 6 week course. POD#5 (11/19/19) s/p vascular surgery RLE. Pt complained of back pain on 11/21/2019, CTA of abdomen and pelvis revealed diffuse left retroperitoneal hematoma extending from the inferior margin of the spleen to the level of the left external iliac artery. Hematoma, stable, vascular aware. His wound cx are growing streptococcus parasanguinis, Proteus mirabilis, group B strep, gemella morbilliform, with possible dc on po Abx such as Augmentin, will f/u with ID. Blood cultures are negative for any growth. Per ID, recommendations to continue IV antibiotics, Zosyn (today is day 9) hospitalization, plan to transition to by mouth at DC, will require antibiotics for 6 weeks. Pt tolerated baclofen 10mg TID. Also consider trial of Valium 5 mg every 6 hours when necessary if needed. Pain improved but still not quite controlled, currently on oxycodone 10 every 6 hours scheduled, will increase to q5h morenita. Cont Baclofen 10mg TID and Zosyn, f/u with vascular, ID, PT. Hb 9.9 from 10.3 yesterday, VSS. OBJECTIVE PHYSICAL EXAMINATION: VITAL SIGNS: Please see below. GENERAL: A thin elderly male in No distress, speaking in full sentences HEENT: Normocephalic, atraumatic, moist mucous membranes NECK: Supple CARDIOVASCULAR EXAMINATION: S1, S2 RESPIRATORY EXAMINATION: CTAB ABDOMINAL EXAMINATION: Soft, nontender, nondistended, positive bowel sounds Back: tenderness to palpation, but improved from previous EXTREMITIES: Both RLE and LLE warmer, no edema, erythema SKIN: No additional rash NEUROLOGICAL EXAMINATION: Awake PSYCHIATRIC EXAMINATION: Calm and cooperative, appropriate affect LABORATORY DATA, IMAGING STUDIES, MICROBIOLOGY: Please see below. ASSESSMENT AND PLAN: Patient is a 64yM with PMH of PAD presents with acute osteomyelitis complicated by PAD. Patient is status post debridement of the right first metatarsal and middle cuneiform bone, ID consult to, currently on Zosyn and will require a 6 week course. POD#5 (11/19/19) s/p vascular surgery RLE. #retroperitoneal hematoma - tolerating Eliquis, retroperitoneal hematoma dx 11/22/19, stable and no intervention at this time, Hemoglobin improved to 9.9 today #Acute osteomyelitis, right 1st metatarsal, middle cuneiform bone complicated by PAD -Debridement By Dr. Romano for R foot gangrene 11/13/19 (POD#11). Antibiotic therapy per Dr. Hancock, f/u on recs, cont Zosyn in hospital and transition to po for a 6 week total Abx course -Follow up with podiatry as outpatient in one week, follow-up with wound clinic #POD#5 (11/19/19) s/p arterial femoral angiogram of the R common femoral artery and superficial femoral artery, angioplasty of the superficial femoral artery and popliteal artery, stenting of the right distal SFA to mid popliteal by Dr. Mcdaniels -recommendations for diabetic, high protein diet -light activity after 5 PM, no strenuous activity or lifting greater than 5 pounds for 48 hours with head of bed should be less then 15 while on bedrest -pain management -d/w vascular -f/u with podiatry 1 week s/p dc -f/u PT #DM, ISS, hypoglycemic protocol #HTN: cont home meds DVT ppx: hold NOAC Full code Dispo: f/u with PT, home PT vs rehab, earliest dc on 11/25/19 VS, I&O, 24H, Fishbone Vital Signs/I&O Vital Signs Date Time Temp Pulse Resp B/P (MAP) Pulse Ox O2 Delivery O2 Flow Rate FiO2 11/24/19 10:52 18 11/24/19 08:51 142/81 11/24/19 08:51 87 11/24/19 06:00 98.5 95 Room Air 11/19/19 17:38 2 I&O- Last 24 Hours up to 6 AM 11/24/19 06:00 Intake Total 1250 ml Output Total 1725 ml Balance -475 ml Laboratory Data 24H LABS Laboratory Tests 2 11/23/19 16:39: Bedside Glucose (Misc Panel) 248H 11/23/19 20:57: Bedside Glucose (Misc Panel) 308H 11/24/19 06:34: Nucleated Red Blood Cells % (auto) 0.0, Anion Gap 4L, Glomerular Filtration Rate > 60.0, Calcium Level 9.0 11/24/19 11:18: Bedside Glucose (Misc Panel) 234H CBC/BMP Laboratory Tests 11/24/19 06:34 ROSARIO FRASER MD November 24, 2019 12:07
[2019-11-24 14:00] VITALS: BP 138/64
[2019-11-24] MEDS: PRAVASTATIN 20 MG TAB PO SCH (21:28)
[2019-11-24] MEDS: ASPIRIN 81 MG ENTERIC TAB PO SCH (21:28)
[2019-11-24 22:00] VITALS: BP 135/89
[2019-11-25] MEDS: oxyCODONE 5MG TAB PO SCH ×4 (01:00→15:57)
[2019-11-25] MEDS: SLF 3 ML SYR IV SCH ×2 (05:04→13:15)
[2019-11-25] MEDS: PIPERACILLIN/TAZOBACTAM SOD 3.375 GM in D5W MINI-BAG PLUS 50 ML IV SCH ×3 (05:04→15:58)
[2019-11-25 06:00] VITALS: BP 104/64
[2019-11-25 06:07] LABS: HEMATOCRIT 34.4 % (42.0-52.0); MEAN CORPUSCULAR HEMOGLOBIN 23.8 pg (27.0-33.0); MEAN CORPUSCULAR HGB CONC 29.1 g/dl (32.0-36.5); MEAN CORPUSCULAR VOLUME 81.7 fl (80.0-96.0); PLATELET COUNT, AUTOMATED 280 10^3/uL (150-450); RED BLOOD COUNT 4.21 10^6/uL (4.30-6.10)
[2019-11-25 06:29] LABS: BLOOD UREA NITROGEN 30 MG/DL (7-18); CALCIUM LEVEL 8.8 MG/DL (8.8-10.2); CARBON DIOXIDE LEVEL 31 MEQ/L (21-32); CHLORIDE LEVEL 104 MEQ/L (98-107); CREATININE FOR GFR 1.15 MG/DL (0.70-1.30); GLOMERULAR FILTRATION RATE > 60.0 (>49); GLUCOSE, FASTING 254 MG/DL (70-100); POTASSIUM SERUM 4.4 MEQ/L (3.5-5.1); SODIUM LEVEL 141 MEQ/L (136-145)
--- NOTE | 2019-11-25 07:53 | IPNPDOC ---
Date Seen The patient was seen on 11/25/19. Progress Note Patient seen and examined. Resting comfortably in bed. He says his pain is much improved again today. His vitals have been stable. No significant bruising noted at either groin access site. Right lower extremity is warm and well-perfused. Dressings removed both groins. Left flank pain is a bit better today. When I palpated with the patient asleep it is pretty soft, but he does tense up a bit w hile awake. I think some of that is muscle spasms. He says the muscle spasms have been better over the last day. We're pleased to hear this. Regarding retroperitoneal hematoma, it is a narrow track of blood from the right groin up behind the left kidney, not taking that much space, but probably irritating nerves in the area. As it resolves, the patient's symptoms should also begin to subside. Hopefully he'll be able to get out of bed and move around more with physical therapy over the next day or 2. He did get out of bed yesterday and started at the side of the bed and he said it felt good to get up on his feet. He is hoping to get out of bed again later today after breakfast. We will contin ue to follow closely. VS, I&O, 24H, Fishbone Vital Signs/I&O Vital Signs Date Time Temp Pulse Resp B/P (MAP) Pulse Ox O2 Delivery O2 Flow Rate FiO2 11/25/19 06:00 98.2 79 17 104/64 (77) 93 Room Air 11/19/19 17:38 2 I&O- Last 24 Hours up to 6 AM 11/25/19 06:00 Intake Total 1690 ml Output Total 825 ml Balance 865 ml Laboratory Data 24H LABS Laboratory Tests 2 11/24/19 11:18: Bedside Glucose (Misc Panel) 234H 11/24/19 16:25: Bedside Glucose (Misc Panel) 220H 11/24/19 20:34: Bedside Glucose (Misc Panel) 289H 11/25/19 05:21: Nucleated Red Blood Cells % (auto) 0.0, Anion Gap 6L, Glomerular Filtration Rate > 60.0, Calcium Level 8.8 CBC/BMP Laboratory Tests 11/25/19 05:21 TERRANCE STARKS MD November 25, 2019 07:53
--- NOTE | 2019-11-25 08:50 | IPNPDOC ---
Date Seen The patient was seen on 11/25/19. Progress Note SUBJECTIVE: Patient is a 64yM with PMH of PAD presents with acute osteomyelitis complicated by PAD. Patient is status post debridement of the right first metatarsal and middle cuneiform bone, ID consult to, currently on Zosyn and will require a 6 week course. POD#6 (11/19/19) s/p vascular surgery RLE. Pt complained of back pain on 11/21/2019, CTA of abdomen and pelvis revealed diffuse left retroperitoneal hematoma extending from the inferior margin of the spleen to the level of the left external iliac artery. Hematoma, stable, vascular aware. His wound cx are growing streptococcus parasanguinis, Proteus mirabilis, group B strep, gemella morbilliform, with possible dc on po Abx such as Augmentin, will f/u with ID. Blood cultures are negative for any growth. Per ID, recommendations to continue IV antibiotics, Zosyn (today is day 13) hospitalization, plan to transition to by mouth at DC, will require antibiotics for 6 weeks. Pt tolerated baclofen 10mg TID. Also consider trial of Valium 5 mg every 6 hours when necessary if needed. Pain controlled with morenita oxycodone 10 every 5 hours and Baclofen 10mg TID and Zosyn, f/u with vascular, ID, PT, podiatry on weight bearing status. Hb stable, VSS. OBJECTIVE PHYSICAL EXAMINATION: VITAL SIGNS: Please see below. GENERAL: A thin elderly male in No distress, speaking in full sentences HEENT: Normocephalic, atraumatic, moist mucous membranes NECK: Supple CARDIOVASCULAR EXAMINATION: S1, S2 RESPIRATORY EXAMINATION: CTAB ABDOMINAL EXAMINATION: Soft, nontender, nondistended, positive bowel sounds Back: tenderness to palpation, but improved from previous, groin, c/d/i, no bruising EXTREMITIES: Both RLE and LLE warmer, no edema, erythema SKIN: No additional rash NEUROLOGICAL EXAMINATION: Awake PSYCHIATRIC EXAMINATION: Calm and cooperative, appropriate affect LABORATORY DATA, IMAGING STUDIES, MICROBIOLOGY: Please see below. ASSESSMENT AND PLAN: Patient is a 64yM with PMH of PAD presents with acute osteomyelitis complicated by PAD. Patient is status post debridement of the right first metatarsal and middle cuneiform bone, ID consult to, currently on Zosyn and will require a 6 week course. POD#6 (11/19/19) s/p vascular surgery RLE. #retroperitoneal hematoma - tolerating Eliquis, retroperitoneal hematoma dx 11/22/19, stable and no intervention at this time, Hemoglobin stable #Acute osteomyelitis, right 1st metatarsal, middle cuneiform bone complicated by PAD -Debridement By Dr. Romano for R foot gangrene 11/13/19 (POD#12). Antibiotic therapy per Dr. Hancock, f/u on recs, cont Zosyn in hospital and transition to po for a 6 week total Abx course -Follow up with podiatry as outpatient in one week, follow-up with wound clinic #POD#6 (11/19/19) s/p arterial femoral angiogram of the R common femoral artery and superficial femoral artery, angioplasty of the superficial femoral artery and popliteal artery, stenting of the right distal SFA to mid popliteal by Dr. Mcdaniels -recommendations for diabetic, high protein diet -f/u with weight bearing status -pain management -d/w vascular -f/u with podiatry 1 week s/p dc -f/u PT #DM, ISS, hypoglycemic protocol, patient has been hyperglycemic, we'll resume home medications #HTN: cont home meds DVT ppx: cont NOAC Full code Dispo: f/u with PT, home PT vs rehab, earliest dc on 11/25/19 vs 11/26/19 VS, I&O, 24H, [facility] [place] Vital Signs/I&O Vital Signs Date Time Temp Pulse Resp B/P (MAP) Pulse Ox O2 Delivery O2 Flow Rate FiO2 11/25/19 06:00 98.2 79 17 104/64 (77) 93 Room Air 11/19/19 17:38 2 I&O- Last 24 Hours up to 6 AM 11/25/19 05:59 Intake Total 1990 ml Output Total 1175 ml Balance 815 ml Laboratory Data 24H LABS Laboratory Tests 2 11/24/19 11:18: Bedside Glucose (Misc Panel) 234H 11/24/19 16:25: Bedside Glucose (Misc Panel) 220H 11/24/19 20:34: Bedside Glucose (Misc Panel) 289H 11/25/19 05:21: Nucleated Red Blood Cells % (auto) 0.0, Anion Gap 6L, Glomerular Filtration Rate > 60.0, Calcium Level 8.8 CBC/BMP Laboratory Tests 11/25/19 05:21 ROSARIO FRASER MD November 25, 2019 08:49
[2019-11-25] MEDS ORDERED: LEVEMIR (INSULIN DETEMIR) 1 UNITS/0.01ML SC SCH (09:00)
[2019-11-25] MEDS: MIRALAX *UNIT DOSE* 17GM PACKET PO PRN (09:23)
[2019-11-25] MEDS: HumaLOG INSULIN (NovoLOG) PER UNIT SC SCH ×2 (09:24→13:14)
[2019-11-25] MEDS: GABAPENTIN 300 MG CAP PO SCH ×2 (09:25→15:56)
[2019-11-25] MEDS: MAGNESIUM GLUCONATE 500 MG TAB PO SCH (09:25)
[2019-11-25] MEDS: DULoxetine 30 MG CAP (CYMBALTA) PO SCH (09:25)
[2019-11-25] MEDS: APIXABAN 5 MG TAB (ELIQUIS) PO SCH (09:25)
[2019-11-25] MEDS: PANTOPRAZOLE 40MG TAB (PROTONIX) PO SCH (09:25)
[2019-11-25] MEDS: BACLOFEN 10 MG TAB PO SCH ×2 (09:26→15:57)
[2019-11-25] MEDS: DOCUSATE SODIUM 100 MG CAP PO PRN (09:26)
[2019-11-25 09:27] VITALS: BP 129/71
[2019-11-25] MEDS: METOPROLOL TART 25 MG TABLET PO SCH (09:27)
[2019-11-25] MEDS: LACTIC ACID 12% LOTION 225 GM BTL TOP SCH (09:27)
[2019-11-25] MEDS: amLODIPine 10 MG TAB PO SCH (09:28)
[2019-11-25] MEDS: lisinopriL 5 MG TAB PO SCH (09:28)
--- NOTE | 2019-11-25 09:38 | DS.PDOC ---
Discharge Summary General Date of Admission Nov 12, 2019 at 17:27 Date of Discharge 11/25/19 Discharge Summary PROCEDURES PERFORMED DURING STAY: Angiogram. ADMITTING DIAGNOSES: 1. RLE osteo. DISCHARGE DIAGNOSES: 1. RLE osteo, retroperitoneal hematoma. COMPLICATIONS/CHIEF COMPLAINT: Sepsis. HISTORY OF PRESENT ILLNESS/HOSPITAL COURSE: Patient is a 64yM with PMH of PAD presents with acute osteomyelitis complicated by PAD. Patient is status post debridement of the right first metatarsal and middle cuneiform bone, ID consult to, currently on Zosyn and will require a 6 week course. POD#6 (11/19/19) s/p v ascular surgery RLE. Pt complained of back pain on 11/21/2019, CTA of abdomen and pelvis revealed diffuse left retroperitoneal hematoma extending from the inferior margin of the spleen to the level of the left external iliac artery. Hematoma, stable, vascular aware. His wound cx are growing streptococcus parasanguinis, Proteus mirabilis, group B strep, gemella morbilliform, with possible dc on po Abx such as Augmentin, will f/u with ID. Blood cultures are negative for any growth. Per ID, recommendations to continue IV antibiotics, Zosyn (today is day 13) hospitalization, plan to transition to by mouth at DC, will require antibiotics for 6 weeks. Pt tolerated baclofen 10mg TID. Also consider trial of Valium 5 mg every 6 hours when necessary if needed. Plan to DC to ARU today. I spoke with Dr. Romero on discharge, to continue Zosyn during ARU, ID consult for follow-up in ARU. D/W Dr. Romano f/u with wound care in 1 week, weight bearing status as tolerated. D/w Dr. Guevara f/u in 1 month. Pt did have Glu 200s, home DM meds to continue on DC. Pain control with morenita oxycodone 10 every 5 hours and Baclofen 10mg TID and Zosyn. Hb stable, VSS. Will follow in ARU. Pt on contact d/t +MRSA screen. All questions answered. OBJECTIVE PHYSICAL EXAMINATION: VITAL SIGNS: Please see below. GENERAL: A thin elderly male in No distress, speaking in full sentences HEENT: Normocephalic, atraumatic, moist mucous membranes NECK: Supple CARDIOVASCULAR EXAMINATION: S1, S2 RESPIRATORY EXAMINATION: CTAB ABDOMINAL EXAMINATION: Soft, nontender, nondistended, positive bowel sounds Back: tenderness to palpation, but improved from previous, groin, c/d/i, no bruising EXTREMITIES: Both RLE and LLE warmer, no edema, erythema SKIN: No additional rash NEUROLOGICAL EXAMINATION: Awake PSYCHIATRIC EXAMINATION: Calm and cooperative, appropriate affect. DISCHARGE MEDICATIONS: Please see below. DISCHARGE PLAN: ARU DISPOSITION: DISCHARGE CONDITION: Stable. TIME SPENT ON DISCHARGE: 35 minutes. Vital Signs/I&Os Vital Signs Date Time Temp Pulse Resp B/P (MAP) Pulse Ox O2 Delivery O2 Flow Rate FiO2 11/25/19 06:00 98.2 79 17 104/64 (77) 93 Room Air 11/19/19 17:38 2 I&O- Last 24 Hours up to 6 AM 11/25/19 06:00 Intake Total 1690 ml Output Total 825 ml Balance 865 ml Laboratory Data Labs 24H Laboratory Tests 2 11/24/19 11:18: Bedside Glucose (Misc Panel) 234H 11/24/19 16:25: Bedside Glucose (Misc Panel) 220H 11/24/19 20:34: Bedside Glucose (Misc Panel) 289H 11/25/19 05:21: Nucleated Red Blood Cells % (auto) 0.0, Anion Gap 6L, Glomerular Filtration Rate > 60.0, Calcium Level 8.8 CBC/BMP Laboratory Tests 11/25/19 05:21 FSBS Laboratory Tests Test 11/24/19 11:18 11/24/19 16:25 11/24/19 20:34 Range/Units Bedside Glucose (Misc Panel) 234 220 289 80-115 MG/DL Discharge Medications Scheduled Amlodipine Besylate (Amlodipine Besylate) 10 Mg Tablet, 10 MG PO DAILY, (Reported) Apixaban (Eliquis) 5 Mg Tablet, 5 MG PO BID, (Reported) Aspirin (Aspir 81) 81 Mg Tablet.dr, 81 MG PO QHS, (Reported) Duloxetine Hcl (Duloxetine HCl) 60 Mg Capsule.dr, 60 MG PO DAILY, (Reported) Fentanyl (Fentanyl) 100 Mcg Patch.td72, 100 MCG TOP Q3D, (Reported) CURRENTLY APPLIED TO STOMACH Gabapentin (Gabapentin) 600 Mg Tablet, 600 MG PO TID, (Reported) Glipizide (Glipizide ER) 10 Mg Tab.er.24, 10 MG PO DAILY, (Reported) Insulin Detemir (Levemir) 100 Unit/1 Ml Vial, 60 UNITS SC BID, (Reported) Insulin Human NPH (Humulin N) 100 Unit/1 Ml Vial, 66 UNITS SQ QAM, (Reported) Insulin Human NPH (Humulin N) 100 Unit/1 Ml Vial, 77 UNITS SC QPM, (Reported) Insulin Human Regular (Humulin R) 100 Unit/1 Ml Vial, 36 UNITS SQ BID, (Reported) BREAKFAST AND LUNCH Insulin Human Regular (Humulin R) 100 Unit/1 Ml Vial, 38 UNITS SC QPM, (Reported) Latanoprost (Xalatan) 0.005% 2.5ML Drops, 1 DROP OU QHS, (Reported) Lisinopril (Lisinopril) 5 Mg Tablet, 5 MG PO DAILY, (Reported) Magnesium Gluconate (Mag-G) 27 Mg Tablet, 500 MG PO DAILY, (Reported) Metoprolol Tartrate (Metoprolol Tartrate) 25 Mg Tablet, 25 MG PO BID, (Reported) Multivitamins (Thera M Plus Tablet) 1 Each Tablet, 1 TAB PO DAILY, (Reported) Niacin (Niacor) 500 Mg Tablet, 1,000 MG PO QHS, (Reported) [place]-3 Fatty Acids/Fish Oil (Fish Oil 1,000 mg Capsule) 1 Each Capsule, 1,000 MG PO DAILY, (Reported) Pantoprazole Sodium (Pantoprazole Sodium) 40 Mg Tablet.dr, 40 MG PO DAILY, (Reported) Pravastatin Sodium (Pravastatin Sodium) 20 Mg Tablet, 20 MG PO QHS, (Reported) Salmeterol (Serevent Diskus) 50 Mcg Blst.w.dev, 1 PUFF INH BID, (Reported) Scheduled PRN Albuterol Sulfate (Albuterol Sulfate Hfa) 8.5 Gm Hfa.aer.ad, 2 PUFF INH QID PRN for SHORTNESS OF BREATH, (Reported) Docusate Sodium (Colace) 100 Mg Capsule, 100 MG PO BID PRN for CONSTIPATION, (Reported) Oxycodone HCl (Oxycodone HCl) 10 Mg Tablet, 10 MG PO QID PRN for PAIN, (Reported) MAY TAKE ONE TO TWO TABS Allergies Coded Allergies: TAPE (Verified Allergy, Mild, RASH/BLISTERS, 08/15/19) No Known Drug Allergies (Verified Allergy, Unknown, 08/15/19) ROSARIO FRASER MD November 25, 2019 09:38
[2019-11-25] MEDS ORDERED: ZOSY3INJ2 IV (09:42)
[2019-11-25] MEDS ORDERED: BACL10TA2 PO (09:42)
[2019-11-25] MEDS ORDERED: OXYC-517 PO (09:45)
[2019-11-25 10:16] LABS: C REACTIVE PROTEIN QUANTITATIV 4.84 MG/DL (0.00-0.30)
[2019-11-25] MEDS ORDERED: HumuLIN R (REGULAR) INSULIN (NovoLIN R) **100U/ML** PER UNIT SC SCH (12:30)
[2019-11-25 14:00] VITALS: BP 118/76
[2019-11-25 16:27] VITALS: BP 119/75
[2019-11-25] MEDS ORDERED: HumuLIN N INSULIN (NovoLIN N) PER UNIT SC SCH (18:00)
--- NOTE | 2019-11-25 23:51 | IPN ---
DATE: 11/22/2019 Aurelio is doing much better. He states his flank pain has improved. He has had no fever or chills. No nausea, vomiting or diarrhea. He is being transferred to acute rehab for physical therapy for about 5 days. LABS: White count is 9, hemoglobin 10, hematocrit 34.4, platelets 280. Sodium 141, potassium 4.4, chloride 104, bicarb 31, BUN 30, creatinine 1.15, glucose 254, calcium 8.8, CRP 4.84, slight increase from 11/19/2019 which was 3.3. Wound culture from the right foot was positive for Streptococcus parasanguinis, Proteus mirabilis, group B strep and Gemella. He is currently day #13 of IV Zosyn. PHYSICAL EXAM: Heart: Normal S1, S2 with a systolic ejection murmur 2/6 at the right upper sternal border. Lungs: Diminished breath sounds at bases but clear. Abdomen is soft, distended, tender in the left flank area from retroperitoneal hematoma, but there is no evidence of ecchymosis. Extremities: Scaly with hyperpigmented venous changes on the left side, erythema on the right side which has decreased. Scaliness has improved with Lac-Hydrin cream. Right foot ulcer on the dorsal aspect of the foot measures about 7 x 5 cm with granulation tissue, some very few areas of necrotic tissue that is obvious measuring less than 0.5 cm. No exposed bone. No purulent discharge. Left calf ulcer from the Achilles tendon all through the midcalf, granulation tissue with no purulence, no redness, no tenderness or cellulitis around it. IMPRESSION: 1. Acute osteomyelitis of the right foot, of the cuneiform and 1st and 2nd metatarsal, polymicrobial infection, on IV Zosyn day #13. 2. Left calf ulcer/pressure ulcer, doing well. The patient was following up with Dr. Ortega for possibility of graft. 3. Dry skin, questionable psoriasis. The patient needs followup with dermatology. PLAN: Continue with IV Zosyn while the patient is in acute rehab. He is currently day #13 out of 42 of antibiotic. He will finish his course of oral antibiotics with his course of therapy for osteomyelitis with oral Augmentin, but while he is in the hospital, I will continue with IV Zosyn at 3.375 grams every 6 hours. Case was discussed with Dr. Romano . He agrees that the foot is doing well, and he could be weightbearing as tolerated for rehab. MTDD
[2019-11-26] MEDS ORDERED: HumuLIN N INSULIN (NovoLIN N) PER UNIT SC SCH (07:30)
== END 2019-11-25 16:55 | DRG 253 ==
LOC: M ED 14:52 → M ED INP 17:27 → ENRESERV 18:06 → M PCU 21:53 → M MSPAV 11-15 12:46
PROVIDERS: ADMIT Internal Medicine; ATTEND Family Medicine
PROC: 0LBV0ZZ Excision of Right Foot Tendon, Open Approach (ICD-10-PCS; 2019-11-13)
PROC: 0QBN0ZZ Excision of Right Metatarsal, Open Approach (ICD-10-PCS; 2019-11-13)
PROC: 047 Lower Arteries, Dilation (ICD-10-PCS; 2019-11-19)
PROC: B400YZZ Plain Radiography of Abdominal Aorta using Other Contrast (ICD-10-PCS; 2019-11-19)
PROC: B40FYZZ Plain Radiography of Right Lower Extremity Arteries using Other Contrast (ICD-10-PCS; 2019-11-19)
PROC: B40GYZZ Plain Radiography of Left Lower Extremity Arteries using Other Contrast (ICD-10-PCS; 2019-11-19)
PROC: 047 Lower Arteries, Dilation (ICD-10-PCS; principal; 2019-11-19 09:00)
DX: E11.52 Type 2 diabetes mellitus with diabetic peripheral angiopathy with gangrene (principal); I48.20 Chronic atrial fibrillation, unspecified; M86.171 Other acute osteomyelitis, right ankle and foot; I97.638 Postprocedural hematoma of a circulatory system organ or structure following other circulatory system procedure; K91.871 Postprocedural hematoma of a digestive system organ or structure following other procedure; L97.513 Non-pressure chronic ulcer of other part of right foot with necrosis of muscle; E11.621 Type 2 diabetes mellitus with foot ulcer; E11.42 Type 2 diabetes mellitus with diabetic polyneuropathy; E11.22 Type 2 diabetes mellitus with diabetic chronic kidney disease; I12.9 Hypertensive chronic kidney disease with stage 1 through stage 4 chronic kidney disease, or unspecified chronic kidney disease; N18.9 Chronic kidney disease, unspecified; E11.610 Type 2 diabetes mellitus with diabetic neuropathic arthropathy; E78.5 Hyperlipidemia, unspecified; I70.201 Unspecified atherosclerosis of native arteries of extremities, right leg; I25.10 Atherosclerotic heart disease of native coronary artery without angina pectoris; D64.9 Anemia, unspecified; G47.33 Obstructive sleep apnea (adult) (pediatric); I87.2 Venous insufficiency (chronic) (peripheral); M62.838 Other muscle spasm; B96.4 Proteus (mirabilis) (morganii) as the cause of diseases classified elsewhere; B95.5 Unspecified streptococcus as the cause of diseases classified elsewhere; E11.69 Type 2 diabetes mellitus with other specified complication; E66.9 Obesity, unspecified; E11.649 Type 2 diabetes mellitus with hypoglycemia without coma; Y83.1 Surgical operation with implant of artificial internal device as the cause of abnormal reaction of the patient, or of later complication, without mention of misadventure at the time of the procedure; L40.9 Psoriasis, unspecified; Z95.5 Presence of coronary angioplasty implant and graft; Z95.828 Presence of other vascular implants and grafts; Z85.820 Personal history of malignant melanoma of skin; Z87.891 Personal history of nicotine dependence; Z79.4 Long term (current) use of insulin; Z79.02 Long term (current) use of antithrombotics/antiplatelets; Z79.82 Long term (current) use of aspirin; Z79.899 Other long term (current) drug therapy; Z98.1 Arthrodesis status; Z68.33 Body mass index [BMI] 33.0-33.9, adult; Z89.412 Acquired absence of left great toe

== ENCOUNTER 2019-11-25 15:50 | Inpatient (IN) | payer MEDICARE, BC ==
[~2019-11-25] VITALS: Ht 180.3 cm; Wt 99.1 kg
[~2019-11-25 15:50] MED LIST changes: +ALBU8.5H INH; +BACL10TA2 PO; +COLA100C5 PO; +DULO1CAP6 PO; +FENT10PA TOP; +MAGN50TA PO; +OXYC-517 PO; +PANT-23 PO; +PROA1AER2 INH; +ZOSY3INJ2 IV
[2019-11-25 17:10] VITALS: BP 139/76
[2019-11-25] MEDS ORDERED: BISACODYL 10 MG SUPP PR PRN (17:30)
[2019-11-25] MEDS ORDERED: FENTANYL REMOVAL DOCUMENTATION MISC XX SCH (17:30)
[2019-11-25] MEDS ORDERED: GLUCOSE 4GM CHEW TABLET PO PRN (17:30)
[2019-11-25] MEDS ORDERED: GLUCAGON INJ 1MG VIAL SC PRN (17:30)
[2019-11-25] MEDS ORDERED: NALOXONE INJ 0.4MG/1ML VIAL (J2310 PER 1MG) IV PRN (17:30)
[2019-11-25] MEDS ORDERED: DEXTROSE 50% 50 ML SYRINGE IV PRN (17:30)
[2019-11-25] MEDS: HumaLOG INSULIN (NovoLOG) PER UNIT SC SCH ×2 (18:26→20:41)
[2019-11-25] MEDS: IPRATROPIUM 0.5MG/ALBUTEROL 2.5MG INH SOL UD 3ML (DUONEB)(J7620) NEB SCH (19:35)
[2019-11-25 20:00] VITALS: BP 157/71
[2019-11-25] MEDS: PIPERACILLIN/TAZOBACTAM SOD 3.375 GM in D5W MINI-BAG PLUS 50 ML IV SCH (20:36)
[2019-11-25] MEDS: SENNA 8.6 MG TAB (SENOKOT) PO SCH (20:37)
[2019-11-25] MEDS: BACLOFEN 10 MG TAB PO SCH (20:37)
[2019-11-25] MEDS: PRAVASTATIN 20 MG TAB PO SCH (20:37)
[2019-11-25] MEDS: APIXABAN 5 MG TAB (ELIQUIS) PO SCH (20:37)
[2019-11-25] MEDS: ACETAMINOPHEN 500 MG TAB PO SCH (20:37)
[2019-11-25] MEDS: DOCUSATE SODIUM 100 MG CAP PO SCH (20:37)
[2019-11-25] MEDS: GABAPENTIN 300 MG CAP PO SCH (20:38)
[2019-11-25] MEDS: ASPIRIN 81 MG ENTERIC TAB PO SCH (20:38)
[2019-11-25] MEDS: METOPROLOL TART 25 MG TABLET PO SCH (20:39)
[2019-11-25] MEDS: LEVEMIR (INSULIN DETEMIR) 1 UNITS/0.01ML SC SCH (20:39)
[2019-11-25] MEDS: REMEDY PHYTOPLEX Z-GUARD PASTE 113GM TUBE (FROM STOREROOM PRODUCT) TOP SCH (20:40)
[2019-11-26] MEDS: PIPERACILLIN/TAZOBACTAM SOD 3.375 GM in D5W MINI-BAG PLUS 50 ML IV SCH ×4 (01:52→20:59)
[2019-11-26 06:31] LABS: BASO # 0.1 10^3/uL (0.0-0.2); BASO % 1.1 % (0.0-1.0); EOS # 0.2 10^3/uL (0.0-0.5); EOS % 2.2 % (0.0-3.0); HEMATOCRIT 33.2 % (42.0-52.0); HEMOGLOBIN 9.6 g/dl (13.5-17.5); LYMPH # 1.8 10^3/uL (1.5-5.0); MEAN CORPUSCULAR HEMOGLOBIN 23.9 pg (27.0-33.0); MEAN CORPUSCULAR HGB CONC 28.9 g/dl (32.0-36.5); MEAN CORPUSCULAR VOLUME 82.6 fl (80.0-96.0); MONO # 0.9 10^3/uL (0.0-0.8); MONO % 10.4 % (0.0-5.0); NEUTROPHILS # 5.7 10^3/uL (1.5-8.5); NEUTROPHILS % 64.6 % (36.0-66.0); PLATELET COUNT, AUTOMATED 275 10^3/uL (150-450); RED BLOOD COUNT 4.02 10^6/uL (4.30-6.10); WHITE BLOOD COUNT 8.8 10^3/uL (4.0-10.0)
[2019-11-26 07:11] LABS: ALBUMIN 2.4 GM/DL (3.2-5.2); ALT/SGPT 23 U/L (12-78); BILIRUBIN,TOTAL 0.4 MG/DL (0.2-1.0); BLOOD UREA NITROGEN 33 MG/DL (7-18); CALCIUM LEVEL 8.5 MG/DL (8.8-10.2); CARBON DIOXIDE LEVEL 31 MEQ/L (21-32); CHLORIDE LEVEL 107 MEQ/L (98-107); CREATININE FOR GFR 1.19 MG/DL (0.70-1.30); GLOMERULAR FILTRATION RATE > 60.0 (>49); GLUCOSE, FASTING 161 MG/DL (70-100); POTASSIUM SERUM 4.3 MEQ/L (3.5-5.1); SODIUM LEVEL 142 MEQ/L (136-145); TOTAL PROTEIN 6.7 GM/DL (6.4-8.2)
--- NOTE | 2019-11-26 07:13 | IPNPDOC ---
Date Seen The patient was seen on 11/26/19. Progress Note SUBJECTIVE: Patient is a 64yM with PMH of PAD presents with acute osteomyelitis complicated by PAD. Patient is status post debridement of the right first metatarsal and middle cuneiform bone, ID consult to, currently on Zosyn and will require a 6 week course. POD#7 (11/19/19) s/p vascular surgery RLE. Pt complained of back pain on 11/21/2019, CTA of abdomen and pelvis revealed diffuse left retroperitoneal hematoma extending from the inferior margin of the spleen to the level of the left external iliac artery. Hematoma, stable, vascular aware. His wound cx are growing streptococcus parasanguinis, Proteus mirabilis, group B strep, gemella morbilliform, with possible dc on po Abx such as Augmentin, will f/u with ID. Blood cultures are negative for any growth. Per ID, recommendations to continue IV antibiotics, Zosyn (today is day 14) hospitalization, plan to transition to by mouth at DC, will require antibiotics for 6 weeks. Pt tolerated baclofen 10mg TID. Also consider trial of Valium 5 mg every 6 hours when necessary if needed. Pain controlled with oxycodone 10 every 5 hours prn, and Baclofen 10mg TID and Zosyn, f/u with vascular, ID, PT, podiatry on weight bearing status. Hb stable, VSS. Will place ID consult. OBJECTIVE PHYSICAL EXAMINATION: VITAL SIGNS: Please see below. GENERAL: A thin elderly male in No distress, speaking in full sentences HEENT: Normocephalic, atraumatic, moist mucous membranes NECK: Supple CARDIOVASCULAR EXAMINATION: S1, S2 RESPIRATORY EXAMINATION: CTAB ABDOMINAL EXAMINATION: Soft, nontender, nondistended, positive bowel sounds Back: nontender to palpation, but improved from previous, groin, c/d/i, no bruising EXTREMITIES: Both RLE and LLE warmer, no edema, erythema SKIN: No additional rash NEUROLOGICAL EXAMINATION: Awake PSYCHIATRIC EXAMINATION: Calm and cooperative, appropriate affect LABORATORY DATA, IMAGING STUDIES, MICROBIOLOGY: Please see below. ASSESSMENT AND PLAN: Patient is a 64yM with PMH of PAD presents with acute osteomyelitis complicated by PAD. Patient is status post debridement of the right first metatarsal and middle cuneiform bone, ID consult to, currently on Zosyn and will require a 6 week course. POD#7 (11/19/19) s/p vascular surgery RLE. #Acute osteomyelitis, right 1st metatarsal, middle cuneiform bone complicated by PAD -Debridement By Dr. Romano for R foot gangrene 11/13/19 (POD#13). Antibiotic therapy per Dr. Hancock, f/u on recs, cont Zosyn in hospital and transition to po for a 6 week total Abx course -Follow up with podiatry as outpatient in one week, follow-up with wound clinic -Deconditioning, will follow-up with primary team for rehabilitation -pain controlled -Consult ID in ARU #retroperitoneal hematoma - tolerating Eliquis, retroperitoneal hematoma dx 11/22/19, stable and no intervention at this time, Hemoglobin stable #POD 7 (11/19/19) s/p arterial femoral angiogram of the R common femoral artery and superficial femoral artery, angioplasty of the superficial femoral artery and popliteal artery, stenting of the right distal SFA to mid popliteal by Dr. Mcdaniels -recommendations for diabetic, high protein diet -weight bearing status as tolerated per podiatry -f/u with podiatry 1 week s/p dc #DM, ISS, hypoglycemic protocol, patient has been hyperglycemic, we'll resume home medications #HTN: cont home meds DVT ppx: cont NOAC Full code We'll continue to follow, thank you for the consult. VS, I&O, 24H, Fishbone Vital Signs/I&O Vital Signs Date Time Temp Pulse Resp B/P (MAP) Pulse Ox O2 Delivery O2 Flow Rate FiO2 11/25/19 20:39 102 140/58 11/25/19 20:00 98.6 20 97 Room Air I&O- Last 24 Hours up to 6 AM 11/26/19 06:00 Intake Total 540 ml Balance 540 ml Laboratory Data 24H LABS Laboratory Tests 2 11/25/19 17:30: Bedside Glucose (Misc Panel) 214H 11/25/19 19:47: Bedside Glucose (Misc Panel) 203H 11/26/19 06:06: Immature Granulocyte % (Auto) 0.7, Neutrophils (%) (Auto) 64.6, Lymphocytes (%) (Auto) 21.0L, Monocytes (%) (Auto) 10.4H, Eosinophils (%) (Auto) 2.2, Basophils (%) (Auto) 1.1H, Neutrophils # (Auto) 5.7, Lymphocytes # (Auto) 1.8, Monocytes # (Auto) 0.9H, Eosinophils # (Auto) 0.2, Basophils # (Auto) 0.1, Nucleated Red Blood Cells % (auto) 0.0 CBC/BMP Laboratory Tests 11/26/19 06:06 ROSARIO FRASER MD November 26, 2019 07:11
[2019-11-26] MEDS: IPRATROPIUM 0.5MG/ALBUTEROL 2.5MG INH SOL UD 3ML (DUONEB)(J7620) NEB SCH ×3 (07:22→19:02)
[2019-11-26] MEDS: glipiZIDE XL 5 MG TABCR PO SCH (09:49)
[2019-11-26] MEDS: LEVEMIR (INSULIN DETEMIR) 1 UNITS/0.01ML SC SCH ×2 (09:49→20:58)
[2019-11-26] MEDS: ACETAMINOPHEN 500 MG TAB PO SCH ×3 (09:50→20:58)
[2019-11-26] MEDS: HumaLOG INSULIN (NovoLOG) PER UNIT SC SCH ×4 (09:50→21:00)
[2019-11-26] MEDS: DOCUSATE SODIUM 100 MG CAP PO SCH ×2 (09:50→20:56)
[2019-11-26] MEDS: MAGNESIUM GLUCONATE 500 MG TAB PO SCH (09:50)
[2019-11-26] MEDS: GABAPENTIN 300 MG CAP PO SCH ×3 (09:50→20:56)
[2019-11-26] MEDS: DULoxetine 30 MG CAP (CYMBALTA) PO SCH (09:51)
[2019-11-26] MEDS: BACLOFEN 10 MG TAB PO SCH ×3 (09:51→20:57)
[2019-11-26] MEDS: METOPROLOL TART 25 MG TABLET PO SCH ×2 (09:51→20:57)
[2019-11-26] MEDS: lisinopriL 5 MG TAB PO SCH (09:51)
[2019-11-26] MEDS: APIXABAN 5 MG TAB (ELIQUIS) PO SCH ×2 (09:51→21:17)
[2019-11-26] MEDS: PANTOPRAZOLE 40MG TAB (PROTONIX) PO SCH (09:51)
[2019-11-26] MEDS: amLODIPine 10 MG TAB PO SCH (09:51)
[2019-11-26] MEDS: REMEDY PHYTOPLEX Z-GUARD PASTE 113GM TUBE (FROM STOREROOM PRODUCT) TOP SCH ×3 (09:52→20:58)
[2019-11-26] MEDS: oxyCODONE 5MG TAB PO PRN (09:56)
[2019-11-26 12:54] LABS: C REACTIVE PROTEIN QUANTITATIV 5.26 MG/DL (0.00-0.30)
[2019-11-26 14:00] VITALS: BP 135/67
--- NOTE | 2019-11-26 14:58 | HPEPDOC ---
Head Chef Note DATE OF ADMISSION: 11-25-19 DATE OF SERVICE: 11-26-19 TIME OF ADMISSION: Please refer to physician's admission order. SOURCE OF ADMISSION INFORMATION: [facility] record and patient CHIEF COMPLAINT: peripheral polyneuropathy due to DM with RLE wound HISTORY OF PRESENT ILLNESS: 64M pmh DM2 with peripheral polyneuropathy, CAD with stents, Afib on eliquis, chronic anemia, CLAUDIA on CPAP, CKD, PVD, chronic wounds presented to [facility] ED on 11-12-19 with fevers and chills found to have leukocytosis with a non-healing ulcer on the dorsum of his right foot. He was started on IV antibiotics, and underwent debridement performed by Dr. Romano on 11-13-19. Bone biopsy was positive for osteomyelitis and his case followed closely by ID who directed antibiotic coverage. He was seen by vascular who performed an aortoiliofemoral arteriogram with angioplasty of the SFA with distal stenting on 11-19-19 which was complicated by a possible retroperitoneal hematoma which follow-up angiogram was negative for extravasation. His blood sugars were difficult to control, he was evaluated by therapy, found to have impairments in mobility and ADLs below his prior level of function and deemed medically appropriate for discharge to ARU on 11-25-19. REVIEW OF SYSTEMS: The following is a completed review of systems and has been reviewed. Review of systems otherwise unremarkable. PAIN: Patient self reports no pain EYES: No recent vision changes EARS, NOSE, & THROAT:No throat pain, or dysphagia, or rhinorrhea CARDIOVASCULAR: Denies chest pain or palpitations PULMONARY: Denies shortness of breath GASTROINTESTINAL: Denies constipation/diarrhea GENITOURINARY: denies dysuria MUSCULOSKELETAL:generalized weakness NEUROLOGICAL:+peripheral polyneuropathy HEMATOLOGICAL: denies easy bruising SKIN: right dorsal foot wound, posterior left calf wound PSYCHIATRIC: Unremarkable All other review of systems found to be negative. PAST MEDICAL HISTORY: as per HPI PAST SURGICAL HISTORY: Bilateral common and external iliac artery angioplasty and stent, left superficial femoral artery angioplasty and stenting, left D1 toe amputation, C6- C7 corpectomy with fusion, cardiac stents, RTC surgery, left eyelid melanoma removal ALLERGIES: Please see below. MEDICATIONS: Please see below. FAMILY HISTORY: cancer SOCIAL HISTORY: Former smoker, no etoh/illicit drugs/smoking DIET: consistent carb, fluid restrict PHYSICAL EXAMINATION: VITAL SIGNS: Please see below. GENERAL: Pleasant and cooperative. No acute distress. HEENT: PERRL. Extraocular movements intact. Clear conjunctiva CARDIOVASCULAR: Irregular rate and rhythm. No murmurs, rubs, or gallops LUNGS: Clear to auscultation bilaterally. No wheezes. No rhonchi ABDOMEN: Soft, nontender, nondistended. Positive bowel sounds. Normal active bowel sounds NEUROLOGICAL: Alert and oriented times three. Cranial nerves II through XII grossly intact. Sensation diminished to light touch bilat LE in stocking pattern EXTREMITIES: 5-\5 strength bilateral upper extremities. 4/5 right hip flexion, knee extension, 3/5 ankle DF, 0/5 EHL 1/5 left hip flexion, 3/5 knee extension 0/5 ankle DF/EHL SKIN: hyperkeratotic calves L>R, posterior left calf with vertical wound with healthy granulation tissue, no exudate -right dorsal foot wound bed with granulation tissue scant exudate, mary wound mildly macerated, right sided interdigits and bottom of toes macerated LABORATORY DATA: Please see below. IMAGING:Imaging documentation personally reviewed by record FUNCTIONAL STATUS: Premorbid: Modified Independent with all activities of daily life as well as mobility household distances On Admission: Min assistance for bathing, upper body dressing, bed chair and wheelchair transfers, toilet transfers, ambulation. GOALS: Mod-I household distances with RW, functional transfers, bed mobility, dressing, bathing, toileting ASSESSMENT:64-year-old M with past medical history of DM and PVD who presents status post right dorsal foot infection PLAN: 1.Rehab- PT/OT advance gait and ADL training, strengthen/stretch/maintain ROM all 4limbs 2. Neuro: peripheral polyneuropathy due to longstanding DM with gait impairment, optimize DM management 3. Cardiac: Afib c/u Eliquis and beta-chio -hx of CAD s/p stenting c/u ASA -chronic diastolic CHF grade 2, c/u daily weight, fluid restrict, monitor for fluid overload -HTN c/u lisinopril and amlodipine, medicine consulted to assist in overall courtney gement -HLD c/u statin 4. Resp: c/u duonebs, monitor for infection -CLAUDIA may use own cpap 5. Endo: DM with peripheral polyneuropathy. c/u Levemir, ISS, will add back glipizide 6. Pain: chronic low back pain with chronic opioid use, c/u fentanyl, oxycodone, gabapentin, cymbalta, baclofen -naloxone ordered prn 7. GI ppx: protonix 8. DVT ppx: on eliquis 9. ID: c/u Zosyn while inhouse for osteomyelitis s/p right dorsal foot debridement, follow CRPs, dressing changed today, will recheck 11/28/19 and adjust dressing change ordered, will consult ID to follow along -vitamin C and zinc added for wound healing -f/u Dr. Romano 10. Dispo: TBD POST ADMISSION PHYSICIAN EVALUATION: Medical and functional status: Description of medical status, medical asses sment: As above. Rehabilitation diagnosis and current and prior cold morbid medical conditions as above. Risk of complications and plans to mitigate them as above. Description of functional status current status is as above. Prior status as above. Status compared to preadmission: There are no clinically significant differences between the patient's current status and the information described on the preadmission screening document. Treatment plan anticipated: Treatment plan is as described above. Required disciplines including physical therapy, occupational therapy, others as noted above. Intensity of services: 3 hours a day, 6 days a week. Special considerations: There are no specific special or safety considerations that would likely preclude immediate implementation of an intensive eloy abilitation program or subsequently influence the plan of care. ATTESTATION: Considering all the information above, it is my best judgment that this patient requires intensive rehabilitation therapy as described above and an inpatient hospital environment due to the complexity of nursing, medical, and rehabilitation needs required by the patient. Furthermore, this patient can reasonably be expected to participate in an benefit from an inpatient rehabilitation stay with an interdisciplinary team approach to the delivery of rehabilitation care under the direction and supervision of rehabilitation physician. PROGNOSIS: good ESTIMATED LENGTH OF STAY:12-14 days. PROJECTED DISCHARGE DESTINATION: Home with family support and any durable medical equipment required to increase functional safety and mobility. TIME SPENT COUNSELING AND COORDINATING INITIAL CARE: Greater than 70 minutes. Vital Signs Vital Sign - Last 24 Hours 11/25/19 11/25/19 11/25/19 11/26/19 17:10 20:00 20:39 09:51 Temp 97.9 98.6 Pulse 92 57 102 102 Resp 18 20 B/P (MAP) 139/76 (97) 157/71 (99) 140/58 140/58 Pulse Ox 95 97 O2 Delivery Room Air Room Air 11/26/19 11/26/19 11/26/19 09:51 09:56 10:30 Pulse 102 Resp 18 18 B/P (MAP) 140/58 O2 Delivery Room Air Room Air Laboratory Data CBC/BMP Laboratory Tests 11/26/19 06:06 Labs 24H Laboratory Tests 2 11/25/19 17:30: Bedside Glucose (Misc Panel) 214H 11/25/19 19:47: Bedside Glucose (Misc Panel) 203H 11/26/19 06:06: Immature Granulocyte % (Auto) 0.7, Neutrophils (%) (Auto) 64.6, Lymphocytes (%) (Auto) 21.0L, Monocytes (%) (Auto) 10.4H, Eosinophils (%) (Auto) 2.2, Basophils (%) (Auto) 1.1H, Neutrophils # (Auto) 5.7, Lymphocytes # (Auto) 1.8, Monocytes # (Auto) 0.9H, Eosinophils # (Auto) 0.2, Basophils # (Auto) 0.1, Nucleated Red Blood Cells % (auto) 0.0, Anion Gap 4L, Glomerular Filtration Rate > 60.0, Calcium Level 8.5L, Total Bilirubin 0.4, Aspartate Amino Transf (AST/SGOT) 16, Alanine Aminotransferase (ALT/SGPT) 23, Alkaline Phosphatase 65, C-Reactive Protein, Quantitative 5.26H, Total Protein 6.7, Albumin 2.4L, Albumin/Globulin Ratio 0.56L 11/26/19 12:14: Bedside Glucose (Misc Panel) 277H FSBS Laboratory Tests Test 11/25/19 17:30 11/25/19 19:47 11/26/19 12:14 Range/Units Bedside Glucose (Misc Panel) 214 203 277 80-115 MG/DL Home Medications Scheduled Amlodipine Besylate (Amlodipine Besylate) 10 Mg Tablet, 10 MG PO DAILY, (Reported) Apixaban (Eliquis) 5 Mg Tablet, 5 MG PO BID, (Reported) Aspirin (Aspir 81) 81 Mg Tablet.dr, 81 MG PO QHS, (Reported) Baclofen (Baclofen) 10 Mg Tablet, 10 MG PO TID Duloxetine Hcl (Duloxetine HCl) 60 Mg Capsule.dr, 60 MG PO DAILY, (Reported) Fentanyl (Fentanyl) 100 Mcg Patch.td72, 100 MCG TOP Q3D, (Reported) CURRENTLY APPLIED TO STOMACH Gabapentin (Gabapentin) 600 Mg Tablet, 600 MG PO TID, (Reported) Glipizide (Glipizide ER) 10 Mg Tab.er.24, 10 MG PO DAILY, (Reported) Insulin Detemir (Levemir) 100 Unit/1 Ml Vial, 60 UNITS SC BID, (Reported) Insulin Human NPH (Humulin N) 100 Unit/1 Ml Vial, 66 UNITS SQ QAM, (Reported) Insulin Human NPH (Humulin N) 100 Unit/1 Ml Vial, 77 UNITS SC QPM, (Reported) Insulin Human Regular (Humulin R) 100 Unit/1 Ml Vial, 36 UNITS SQ BID, (Repor dipak) BREAKFAST AND LUNCH Insulin Human Regular (Humulin R) 100 Unit/1 Ml Vial, 38 UNITS SC QPM, (Reported) Latanoprost (Xalatan) 0.005% 2.5ML Drops, 1 DROP OU QHS, (Reported) Lisinopril (Lisinopril) 5 Mg Tablet, 5 MG PO DAILY, (Reported) Magnesium Gluconate (Mag-G) 27 Mg Tablet, 500 MG PO DAILY, (Reported) Metoprolol Tartrate (Metoprolol Tartrate) 25 Mg Tablet, 25 MG PO BID, (Reported) Multivitamins (Thera M Plus Tablet) 1 Each Tablet, 1 TAB PO DAILY, (Reported) Niacin (Niacor) 500 Mg Tablet, 1,000 MG PO QHS, (Reported) Parrish-3 Fatty Acids/Fish Oil (Fish Oil 1,000 mg Capsule) 1 Each Capsule, 1,000 MG PO DAILY, (Reported) Oxycodone HCl (Oxycodone HCl) 5 Mg Tablet, 10 MG PO Q5H Pantoprazole Sodium (Pantoprazole Sodium) 40 Mg Tablet.dr, 40 MG PO DAILY, (Reported) Piperacillin Sodium/Tazobactam (Zosyn 3.375 Gram Vial) 3.375 Gm Vial, 1 INJ IV Q6H Pravastatin Sodium (Pravastatin Sodium) 20 Mg Tablet, 20 MG PO QHS, (Reported) Salmeterol (Serevent Diskus) 50 Mcg Blst.w.dev, 1 PUFF INH BID, (Reported) Scheduled PRN Albuterol Sulfate (Albuterol Sulfate Hfa) 8.5 Gm Hfa.aer.ad, 2 PUFF INH QID PRN for SHORTNESS OF BREATH, (Reported) Docusate Sodium (Colace) 100 Mg Capsule, 100 MG PO BID PRN for CONSTIPATION, (Reported) Allergies Coded Allergies: TAPE (Verified Allergy, Mild, RASH/BLISTERS, 08/15/19) No Known Drug Allergies (Verified Allergy, Unknown, 08/15/19) A-FIB/CHADSVASC A-FIB History Current/History of A-Fib/PAF?: Yes Current PO Anticoag Therapy: Yes ANNETTE PLAZA MD November 26, 2019 14:58
[2019-11-26] MEDS: ZINC SULFATE 220 MG CAP PO SCH (17:45)
[2019-11-26 20:00] VITALS: BP 133/68
[2019-11-26] MEDS: ASPIRIN 81 MG ENTERIC TAB PO SCH (20:56)
[2019-11-26] MEDS: SENNA 8.6 MG TAB (SENOKOT) PO SCH (20:56)
[2019-11-26] MEDS: ASCORBIC ACID 500 MG TAB PO SCH (20:57)
[2019-11-26] MEDS: PRAVASTATIN 20 MG TAB PO SCH (20:57)
[2019-11-27] MEDS: PIPERACILLIN/TAZOBACTAM SOD 3.375 GM in D5W MINI-BAG PLUS 50 ML IV SCH ×4 (02:55→20:52)
[2019-11-27 06:00] VITALS: BP 142/78
[2019-11-27 06:48] LABS: BASO # 0.1 10^3/uL (0.0-0.2); BASO % 1.1 % (0.0-1.0); EOS # 0.2 10^3/uL (0.0-0.5); EOS % 2.6 % (0.0-3.0); HEMOGLOBIN 9.8 g/dl (13.5-17.5); LYMPH # 1.6 10^3/uL (1.5-5.0); LYMPH % 17.5 % (24.0-44.0); MEAN CORPUSCULAR HEMOGLOBIN 23.5 pg (27.0-33.0); MEAN CORPUSCULAR HGB CONC 28.8 g/dl (32.0-36.5); MEAN CORPUSCULAR VOLUME 81.5 fl (80.0-96.0); MONO # 0.8 10^3/uL (0.0-0.8); MONO % 9.3 % (0.0-5.0); NEUTROPHILS # 6.1 10^3/uL (1.5-8.5); PLATELET COUNT, AUTOMATED 268 10^3/uL (150-450); RED BLOOD COUNT 4.17 10^6/uL (4.30-6.10); WHITE BLOOD COUNT 8.9 10^3/uL (4.0-10.0)
[2019-11-27 07:08] LABS: BLOOD UREA NITROGEN 33 MG/DL (7-18); C REACTIVE PROTEIN QUANTITATIV 5.07 MG/DL (0.00-0.30); CARBON DIOXIDE LEVEL 31 MEQ/L (21-32); CHLORIDE LEVEL 107 MEQ/L (98-107); CREATININE FOR GFR 1.17 MG/DL (0.70-1.30); GLOMERULAR FILTRATION RATE > 60.0 (>49); GLUCOSE, FASTING 172 MG/DL (70-100); POTASSIUM SERUM 3.9 MEQ/L (3.5-5.1); SODIUM LEVEL 142 MEQ/L (136-145)
[2019-11-27] MEDS: IPRATROPIUM 0.5MG/ALBUTEROL 2.5MG INH SOL UD 3ML (DUONEB)(J7620) NEB SCH ×3 (07:08→19:52)
[2019-11-27] MEDS: fentaNYL 100 MCG/HR PATCH TOP SCH (08:20)
[2019-11-27] MEDS: LEVEMIR (INSULIN DETEMIR) 1 UNITS/0.01ML SC SCH ×2 (08:22→20:51)
[2019-11-27] MEDS: ASCORBIC ACID 500 MG TAB PO SCH ×2 (08:23→20:48)
[2019-11-27] MEDS: PANTOPRAZOLE 40MG TAB (PROTONIX) PO SCH (08:23)
[2019-11-27] MEDS: GABAPENTIN 300 MG CAP PO SCH ×3 (08:23→20:49)
[2019-11-27] MEDS: HumaLOG INSULIN (NovoLOG) PER UNIT SC SCH ×4 (08:23→20:50)
[2019-11-27] MEDS: APIXABAN 5 MG TAB (ELIQUIS) PO SCH ×2 (08:23→20:50)
[2019-11-27] MEDS: ZINC SULFATE 220 MG CAP PO SCH (08:24)
[2019-11-27] MEDS: DULoxetine 30 MG CAP (CYMBALTA) PO SCH (08:24)
[2019-11-27] MEDS: MAGNESIUM GLUCONATE 500 MG TAB PO SCH (08:24)
[2019-11-27] MEDS: amLODIPine 10 MG TAB PO SCH (08:24)
[2019-11-27] MEDS: glipiZIDE XL 5 MG TABCR PO SCH (08:24)
[2019-11-27] MEDS: BACLOFEN 10 MG TAB PO SCH ×3 (08:25→20:49)
[2019-11-27] MEDS: lisinopriL 5 MG TAB PO SCH (08:25)
[2019-11-27] MEDS: METOPROLOL TART 25 MG TABLET PO SCH ×2 (08:25→20:50)
[2019-11-27] MEDS: DOCUSATE SODIUM 100 MG CAP PO SCH (08:25)
[2019-11-27] MEDS: ACETAMINOPHEN 500 MG TAB PO SCH ×3 (08:25→20:49)
[2019-11-27] MEDS: REMEDY PHYTOPLEX Z-GUARD PASTE 113GM TUBE (FROM STOREROOM PRODUCT) TOP SCH ×3 (08:26→20:51)
--- NOTE | 2019-11-27 13:23 | IPN ---
DATE: 11/26/2019 Aurelio is doing well. He is in acute rehab and has done well with physical therapy today. His anticipated stay will be 7-10 days. We did not examine his right foot today because Dr. Boswell just changed his dressing. He remains afebrile. LABORATORY DATA: White count is 8.8, hemoglobin 9.6, hematocrit 33.2, platelets 275, 65% neutrophils, 21% lymphocytes, 10% monocytes. Sodium 142, potassium 4.3, chloride 107, bicarb 31, BUN 33, creatinine 1.19, glucose 161, calcium 8.5, AST 16, ALT 23, CRP 5.26 which is slightly increased. OBJECTIVE: Temperature is 98, pulse 93, respirations 16, blood pressure 135/67 and oxygen saturation 94% on room air. Heart: Normal S1, S1. Distant. No murmurs. Lungs: Diminished breath sounds at bases, but clear. Abdomen: Mildly tender in the left flank area. Soft. Bowel sounds present. Mildly distended. Extremities: No edema. He has erythema of the skin with hyperpigmented venous stasis changes. Right foot wound and left calf wound were not examined today. IMPRESSIONS: 1. Acute osteomyelitis right foot first second metatarsal and cuneiform. On IV Zosyn. Will continue with IV antibiotic as long as he is in rehabilitation. Anticipated plan of treatment is 6 weeks, combination IV and p.o. 2. Retroperitoneal hematoma, complication from angiogram, doing better. He has had an angioplasty of superior femoral artery and popliteal artery and a stent in the right distal SFA. PLAN: Continue IV Zosyn. Monitor CBC, ESR, CRP weekly. Please make sure you call me on with dressing change.
[2019-11-27 14:00] VITALS: BP 124/68
[2019-11-27] MEDS: oxyCODONE 5MG TAB PO PRN ×2 (14:46→22:07)
--- NOTE | 2019-11-27 15:11 | IPNPDOC ---
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 REVIEW OF SYSTEMS: The following is a completed review of systems and has been reviewed. Review of systems otherwise unremarkable. PAIN: Patient self reports no pain EYES: No recent vision changes EARS, NOSE, & THROAT:No throat pain, or dysphagia, or rhinorrhea CARDIOVASCULAR: Denies chest pain or palpitations PULMONARY: Denies shortness of breath GASTROINTESTINAL: Denies constipation/diarrhea GENITOURINARY: denies dysuria MUSCULOSKELETAL:generalized weakness NEUROLOGICAL:+peripheral polyneuropathy HEMATOLOGICAL: denies easy bruising SKIN: right dorsal foot wound, posterior left calf wound PSYCHIATRIC: Unremarkable All other review of systems found to be negative. PHYSICAL EXAMINATION: VITAL SIGNS: Please see below. GENERAL: Pleasant and cooperative. No acute distress. HEENT: PERRL. Extraocular movements intact. Clear conjunctiva CARDIOVASCULAR: Irregular rate and rhythm. No murmurs, rubs, or gallops LUNGS: Clear to auscultation bilaterally. No wheezes. No rhonchi ABDOMEN: Soft, nontender, nondistended. Positive bowel sounds. Normal active bowel sounds NEUROLOGICAL: Alert and oriented times three. Cranial nerves II through XII grossly intact. Sensation diminished to light touch bilat LE in stocking pattern EXTREMITIES: 5-\5 strength bilateral upper extremities. 4/5 right hip flexion, knee extension, 3/5 ankle DF, 0/5 EHL 1/5 left hip flexion, 3/5 knee extension 0/5 ankle DF/EHL SKIN: (not examined today) *hyperkeratotic calves L>R, posterior left calf with vertical wound with healthy granulation tissue, no exudate -right dorsal foot wound bed with granulation tissue scant exudate, mary wound mildly macerated, right sided interdigits and bottom of toes macerated ASSESSMENT:64-year-old M with past medical history of DM and PVD who presents status post right dorsal foot infection PLAN: 1.Rehab- PT/OT advance gait and ADL training, strengthen/stretch/maintain ROM all 4limbs 2. Neuro: peripheral polyneuropathy due to longstanding DM with gait impairment, optimize DM management 3. Cardiac: Afib c/u Eliquis and beta-chio -hx of CAD s/p stenting c/u ASA -chronic diastolic CHF grade 2, c/u daily weight, fluid restrict, monitor for fluid overload -HTN c/u lisinopril and amlodipine, medicine consulted to assist in overall management -HLD c/u statin 4. Resp: c/u duonebs, monitor for infection -CLAUDIA may use own cpap 5. Endo: DM with peripheral polyneuropathy. c/u Levemir, ISS, will add back glipizide 6. Pain: chronic low back pain with chronic opioid use, c/u fentanyl, oxycodone, gabapentin, cymbalta, baclofen -naloxone ordered prn 7. GI ppx: protonix 8. DVT ppx: on eliquis 9. ID: c/u Zosyn while inhouse for osteomyelitis s/p right dorsal foot debridement, follow CRPs, dressing changed 11/25, will recheck 11/28/19 and adjust dressing change ordered, will consult ID to follow along -c/u vitamin C and zinc added for wound healing -f/u Dr. Romano 10. Dispo: TBD Allergies Coded Allergies: TAPE (Verified Allergy, Mild, RASH/BLISTERS, 08/15/19) No Known Drug Allergies (Verified Allergy, Unknown, 08/15/19) Vital Signs Vital Signs Date Time Temp Pulse Resp B/P (MAP) Pulse Ox O2 Delivery O2 Flow Rate FiO2 11/27/19 14:46 18 11/27/19 14:00 98.4 89 124/68 (86) 95 Room Air Laboratory Data CBC/BMP Laboratory Tests 11/27/19 06:28 Labs 24H Laboratory Tests 2 11/26/19 16:52: Bedside Glucose (Misc Panel) 191H 11/26/19 19:36: Bedside Glucose (Misc Panel) 242H 11/27/19 06:28: Immature Granulocyte % (Auto) 0.5, Neutrophils (%) (Auto) 69.0H, Lymphocytes (%) (Auto) 17.5L, Monocytes (%) (Auto) 9.3H, Eosinophils (%) (Auto) 2.6, Basophils (%) (Auto) 1.1H, Neutrophils # (Auto) 6.1, Lymphocytes # (Auto) 1.6, Monocytes # (Auto) 0.8, Eosinophils # (Auto) 0.2, Basophils # (Auto) 0.1, Nucleated Red Blood Cells % (auto) 0.0, Anion Gap 4L, Glomerular Filtration Rate > 60.0, Calci um Level 9.0, C-Reactive Protein, Quantitative 5.07H 11/27/19 11:24: Bedside Glucose (Misc Panel) 175H Current Medications Current Medications Current Medications Medications (Trade) Dose Ordered Sig/Lexi Route PRN Reason Start Time Stop Time Status Last Admin Dose Admin Acetaminophen (Tylenol Tab) 1,000 mg TID PO 11/25/19 21:00 11/27/19 08:25 Albuterol/ Ipratropium (Duoneb (Ipr 0.5mg/Alb 2.5mg)) 3 ml RTID NEB 11/25/19 20:00 11/27/19 13:25 Amlodipine Besylate (Norvasc) 10 mg DAILY PO 11/26/19 09:00 11/27/19 08:24 Apixaban (Eliquis) 5 mg BID PO 11/25/19 21:00 11/27/19 08:23 Ascorbic Acid (Vitamin C) 500 mg BID PO 11/26/19 21:00 11/27/19 08:23 Aspirin (Ecotrin) 81 mg QHS PO 11/25/19 21:00 11/26/19 20:56 Baclofen (Lioresal) 10 mg TID PO 11/25/19 21:00 11/27/19 08:25 Bisacodyl (Dulcolax Suppository) 10 mg DAILYPRN PRN [place] CONSTIPATION 11/25/19 17:30 Dextrose (Dextrose 50%) 25 ml ASDIRECTED PRN IV SEE LABEL COMMENTS 11/25/19 17:30 Docusate Sodium (Colace) 100 mg BID PO 11/25/19 21:00 11/26/19 20:56 Duloxetine HCl (Cymbalta) 60 mg DAILY PO 11/26/19 09:00 11/27/19 08:24 Fentanyl (Duragesic) 100 mcg Q72H TOP 11/27/19 09:00 11/27/19 08:20 Gabapentin (Neurontin) 600 mg TID PO 11/25/19 21:00 11/27/19 08:23 Glipizide (Glucotrol Xl) 10 mg DAILY@0730 PO 11/26/19 07:30 11/27/19 08:24 Glucagon (Glucagon) 1 mg ASDIRECTED PRN SC SEE LABEL COMMENTS 11/25/19 17:30 Glucose (Glucose) 16 GM ASDIRECTED PRN PO SEE LABEL COMMENTS 11/25/19 17:30 Insulin Detemir (Levemir Insulin) 60 units BID SC 11/25/19 21:00 11/27/19 10:35 DC 11/27/19 08:22 Insulin Detemir (Levemir Insulin) 64 units BID SC 11/27/19 21:00 Insulin Human Lispro (HumaLOG INSULIN) SEE PROTOCOL TABLE AC SC 11/25/19 17:30 11/27/19 12:54 Insulin Human Lispro (HumaLOG INSULIN) SEE PROTOCOL TABLE QHS SC 11/25/19 21:00 Lisinopril (Prinivil) 5 mg DAILY PO 11/26/19 09:00 11/27/19 08:25 Magnesium Gluconate (Magnesium Gluconate) 500 mg DAILY PO 11/26/19 09:00 11/27/19 08:24 Metoprolol Tartrate (Lopressor) 25 mg BID PO 11/25/19 21:00 11/27/19 08:25 Naloxone HCl (Narcan) 0.1 mg Q5MP PRN IV RESP. RATE < 10 11/25/19 17:30 Non-Formulary Medication ( See Comment Field Below ) SEE COMMENT SECTION ASDIRECTED XX 11/25/19 17:30 Oxycodone HCl (Roxicodone, Oxyir) 5 mg Q4HP PRN PO PAIN 11/25/19 17:30 11/27/19 14:46 Pantoprazole Sodium (Protonix) 40 mg DAILY PO 11/26/19 09:00 11/27/19 08:23 Piperacillin Sod/ Tazobactam Sod 3.375 gm/Dextrose 50 ml @ 50 mls/hr Q6H IV 11/25/19 20:00 11/27/19 14:45 Pravastatin Sodium (Pravachol) 20 mg QHS PO 11/25/19 21:00 11/26/19 20:57 Senna (Senokot) 1 tab QHS PO 11/25/19 21:00 11/26/19 20:56 Zinc Sulfate (Zinc Sulfate) 220 mg DAILY PO 11/26/19 09:00 11/27/19 08:24 ANNETTE PLAZA MD November 27, 2019 15:11
[2019-11-27] MEDS ORDERED: DOCUSATE SODIUM 100 MG CAP PO PRN (19:00)
[2019-11-27 20:00] VITALS: BP 132/61
[2019-11-27] MEDS: ASPIRIN 81 MG ENTERIC TAB PO SCH (20:48)
[2019-11-27] MEDS: PRAVASTATIN 20 MG TAB PO SCH (20:50)
[2019-11-27] MEDS: SENNA 8.6 MG TAB (SENOKOT) PO SCH (20:50)
[2019-11-28] MEDS: PIPERACILLIN/TAZOBACTAM SOD 3.375 GM in D5W MINI-BAG PLUS 50 ML IV SCH ×4 (03:27→20:17)
[2019-11-28 06:00] VITALS: BP 128/69
[2019-11-28] MEDS: IPRATROPIUM 0.5MG/ALBUTEROL 2.5MG INH SOL UD 3ML (DUONEB)(J7620) NEB SCH ×3 (07:20→19:17)
[2019-11-28] MEDS: HumaLOG INSULIN (NovoLOG) PER UNIT SC SCH ×4 (08:11→20:06)
[2019-11-28] MEDS: LEVEMIR (INSULIN DETEMIR) 1 UNITS/0.01ML SC SCH ×2 (08:12→20:18)
[2019-11-28] MEDS: GABAPENTIN 300 MG CAP PO SCH ×3 (08:19→20:18)
[2019-11-28] MEDS: MAGNESIUM GLUCONATE 500 MG TAB PO SCH (08:20)
[2019-11-28] MEDS: glipiZIDE XL 5 MG TABCR PO SCH (08:20)
[2019-11-28] MEDS: amLODIPine 10 MG TAB PO SCH (08:21)
[2019-11-28] MEDS: ASCORBIC ACID 500 MG TAB PO SCH ×2 (08:21→20:19)
[2019-11-28] MEDS: ZINC SULFATE 220 MG CAP PO SCH (08:21)
[2019-11-28] MEDS: DULoxetine 30 MG CAP (CYMBALTA) PO SCH (08:21)
[2019-11-28] MEDS: APIXABAN 5 MG TAB (ELIQUIS) PO SCH ×2 (08:21→20:19)
[2019-11-28] MEDS: ACETAMINOPHEN 500 MG TAB PO SCH ×3 (08:21→20:18)
[2019-11-28] MEDS: lisinopriL 5 MG TAB PO SCH (08:22)
[2019-11-28] MEDS: PANTOPRAZOLE 40MG TAB (PROTONIX) PO SCH (08:22)
[2019-11-28] MEDS: BACLOFEN 10 MG TAB PO SCH ×3 (08:22→20:19)
[2019-11-28] MEDS: METOPROLOL TART 25 MG TABLET PO SCH ×2 (08:22→20:22)
[2019-11-28] MEDS: REMEDY PHYTOPLEX Z-GUARD PASTE 113GM TUBE (FROM STOREROOM PRODUCT) TOP SCH ×3 (08:27→21:12)
[2019-11-28] MEDS: oxyCODONE 5MG TAB PO PRN (13:25)
[2019-11-28 14:00] VITALS: BP 129/73
--- NOTE | 2019-11-28 14:27 | IPNPDOC ---
PM&R Progress Note DATE OF SERVICE: November 28, 2019 [employer] Pipe[employer] Progress Note Subjective: Patient reporting he wants to go sooner than next week and think he is at his baseline functionally. REVIEW OF SYSTEMS: The following is a completed review of systems and has been reviewed. Review of systems otherwise unremarkable. PAIN: Patient self reports no pain EYES: No recent vision changes EARS, NOSE, & THROAT:No throat pain, or dysphagia, or rhinorrhea CARDIOVASCULAR: Denies chest pain or palpitations PULMONARY: Denies shortness of breath GASTROINTESTINAL: Denies constipation/diarrhea GENITOURINARY: denies dysuria MUSCULOSKELETAL:generalized weakness NEUROLOGICAL:+peripheral polyneuropathy HEMATOLOGICAL: denies easy bruising SKIN: right dorsal foot wound, posterior left calf wound PSYCHIATRIC: Unremarkable All other review of systems found to be negative. PHYSICAL EXAMINATION: VITAL SIGNS: Please see below. GENERAL: Pleasant and cooperative. No acute distress. HEENT: PERRL. Extraocular movements intact. Clear conjunctiva CARDIOVASCULAR: Irregular rate and rhythm. No murmurs, rubs, or gallops LUNGS: Clear to auscultation bilaterally. No wheezes. No rhonchi ABDOMEN: Soft, nontender, nondistended. Positive bowel sounds. Normal active bowel sounds NEUROLOGICAL: Alert and oriented times three. Cranial nerves II through XII grossly intact. Sensation diminished to light touch bilat LE in stocking pattern EXTREMITIES: 5-\5 strength bilateral upper extremities. 4/5 right hip flexion, knee extension, 3/5 ankle DF, 0/5 EHL 1/5 left hip flexion, 3/5 knee extension 0/5 ankle DF/EHL SKIN: *hyperkeratotic calves L>R, posterior left calf with vertical wound with healthy granulation tissue, no exudate -right dorsal foot wound bed with granulation tissue scant exudate, mary wound less macerated, right sided interdigits and bottom of toes less macerated (improving) -posterior neck hyperpigmented bullous lesion ASSESSMENT:64-year-old M with past medical history of DM and PVD who presents status post right dorsal foot infection PLAN: 1.Rehab- PT/OT advance gait and ADL training, strengthen/stretch/maintain ROM all 4limbs 2. Neuro: peripheral polyneuropathy due to longstanding DM with gait impairment, optimize DM management 3. Cardiac: Afib c/u Eliquis and beta-chio -hx of CAD s/p stenting c/u ASA -chronic diastolic CHF grade 2, c/u daily weight, fluid restrict, monitor for fluid overload -HTN c/u lisinopril and amlodipine, medicine consulted to assist in overall courtney gement -HLD c/u statin 4. Resp: c/u duonebs, monitor for infection -CLAUDIA may use own cpap 5. Endo: DM with peripheral polyneuropathy. c/u Levemir, ISS, will add back glipizide 6. Pain: chronic low back pain with chronic opioid use, c/u fentanyl, oxycodone, gabapentin, cymbalta, baclofen -naloxone ordered prn 7. GI ppx: protonix 8. DVT ppx: on eliquis 9. ID: c/u Zosyn while inhouse for osteomyelitis s/p right dorsal foot debridement, follow CRPs, dressing changed 11/25 and 11/28/19 c/u dressing changes per order, ID following along -c/u vitamin C and zinc added for wound healing -f/u Dr. Romano 10. Derm: suspect patient has scleroderma or some other type of connective tissue d/o will refer to derm on d/c 11. Dispo: 12-04-19 to home, progressing towards goals Allergies Coded Allergies: TAPE (Verified Allergy, Mild, RASH/BLISTERS, 08/15/19) No Known Drug Allergies (Verified Allergy, Unknown, 08/15/19) Vital Signs Vital Signs Date Time Temp Pulse Resp B/P (MAP) Pulse Ox O2 Delivery O2 Flow Rate FiO2 11/28/19 13:55 18 Room Air 11/28/19 08:21 72 130/69 11/28/19 06:00 96.8 96 Laboratory Data Labs 24H Laboratory Tests 2 11/27/19 16:42: Bedside Glucose (Misc Panel) 250H Current Medications Current Medications Current Medications Medications (Trade) Dose Ordered Sig/Lexi Route PRN Reason Start Time Stop Time Status Last Admin Dose Admin Acetaminophen (Tylenol Tab) 1,000 mg TID PO 11/25/19 21:00 11/28/19 08:21 Albuterol/ Ipratropium (Duoneb (Ipr 0.5mg/Alb 2.5mg)) 3 ml RTID NEB 11/25/19 20:00 11/28/19 07:20 Amlodipine Besylate (Norvasc) 10 mg DAILY PO 11/26/19 09:00 11/28/19 08:21 Apixaban (Eliquis) 5 mg BID PO 11/25/19 21:00 11/28/19 08:21 Ascorbic Acid (Vitamin C) 500 mg BID PO 11/26/19 21:00 11/28/19 08:21 Aspirin (Ecotrin) 81 mg QHS PO 11/25/19 21:00 11/27/19 20:48 Baclofen (Lioresal) 10 mg TID PO 11/25/19 21:00 11/28/19 08:22 Bisacodyl (Dulcolax Suppository) 10 mg DAILYPRN PRN IN CONSTIPATION 11/25/19 17:30 Dextrose (Dextrose 50%) 25 ml ASDIRECTED PRN IV SEE LABEL COMMENTS 11/25/19 17:30 Docusate Sodium (Colace) 100 mg BID PO 11/25/19 21:00 11/27/19 15:12 DC 11/26/19 20:56 Docusate Sodium (Colace) 100 mg BID PRN PO constipation 11/27/19 19:00 Duloxetine HCl (Cymbalta) 60 mg DAILY PO 11/26/19 09:00 11/28/19 08:21 Fentanyl (Duragesic) 100 mcg Q72H TOP 11/27/19 09:00 11/27/19 08:20 Gabapentin (Neurontin) 600 mg TID PO 11/25/19 21:00 11/28/19 08:19 Glipizide (Glucotrol Xl) 10 mg DAILY@0730 PO 11/26/19 07:30 11/28/19 08:20 Glucagon (Glucagon) 1 mg ASDIRECTED PRN SC SEE LABEL COMMENTS 11/25/19 17:30 Glucose (Glucose) 16 GM ASDIRECTED PRN PO SEE LABEL COMMENTS 11/25/19 17:30 Insulin Detemir (Levemir Insulin) 60 units BID SC 11/25/19 21:00 11/27/19 10:35 DC 11/27/19 08:22 Insulin Detemir (Levemir Insulin) 64 units BID SC 11/27/19 21:00 11/28/19 08:12 Insulin Human Lispro (HumaLOG INSULIN) SEE PROTOCOL TABLE AC SC 11/25/19 17:30 11/28/19 12:22 Insulin Human Lispro (HumaLOG INSULIN) SEE PROTOCOL TABLE QHS SC 11/25/19 21:00 11/27/19 20:50 Lisinopril (Prinivil) 5 mg DAILY PO 11/26/19 09:00 11/28/19 08:22 Magnesium Gluconate (Magnesium Gluconate) 500 mg DAILY PO 11/26/19 09:00 11/28/19 08:20 Metoprolol Tartrate (Lopressor) 25 mg BID PO 11/25/19 21:00 11/28/19 08:22 Naloxone HCl (Narcan) 0.1 mg Q5MP PRN IV RESP. RATE < 10 11/25/19 17:30 Non-Formulary Medication ( See Comment Field Below ) SEE COMMENT SECTION ASDIRECTED XX 11/25/19 17:30 Oxycodone HCl (Roxicodone, Oxyir) 5 mg Q4HP PRN PO PAIN 11/25/19 17:30 11/28/19 13:25 Pantoprazole Sodium (Protonix) 40 mg DAILY PO 11/26/19 09:00 11/28/19 08:22 Piperacillin Sod/ Tazobactam Sod 3.375 gm/Dextrose 50 ml @ 50 mls/hr Q6H IV 11/25/19 20:00 11/28/19 08:10 Pravastatin Sodium (Pravachol) 20 mg QHS PO 11/25/19 21:00 11/27/19 20:50 Senna (Senokot) 1 tab QHS PO 11/25/19 21:00 11/27/19 20:50 Zinc Sulfate (Zinc Sulfate) 220 mg DAILY PO 11/26/19 09:00 11/28/19 08:21 ANNETTE PLAZA MD November 28, 2019 14:27
[2019-11-28 20:00] VITALS: BP 144/65
[2019-11-28] MEDS: PRAVASTATIN 20 MG TAB PO SCH (20:19)
[2019-11-28] MEDS: ASPIRIN 81 MG ENTERIC TAB PO SCH (20:19)
[2019-11-28] MEDS: SENNA 8.6 MG TAB (SENOKOT) PO SCH (20:19)
--- NOTE | 2019-11-28 20:48 | IPN ---
DATE: 11/28/2019 Aurelio is doing well. He is anxious to go home. He does not want to stay until next week on Monday, which was his anticipated discharge date. He has been walking at his baseline. He has no fever or chills. No pain in his feet. Abdominal pain has markedly improved. No fever or chills. LABS: White count is 8.9, hemoglobin 9.8, hematocrit 34, platelets 268, 69% neutrophils, 17% lymphocytes, 9% monocytes. Sodium 142, potassium 3.9, chloride 107, bicarbonate 31, BUN 33, creatinine 1.17, glucose 172, calcium 9, CRP 5.07. On physical exam, temperature is 97.5, pulse 69, respirations 17, blood pressure 129/72, oxygen saturation (O2 sat) 94% on room air. Heart: Normal S1, S2, distant. Lungs: Clear anteriorly. No wheezes, rales or rhonchi. Abdomen: Soft, nontender. Bowel sounds present. Extremities: No edema. Very thickened tight skin on both lower extremities. Right leg below the knee is erythematous but not warm with a wound on the dorsal aspect of the foot measuring 5 x 6 cm with granulation tissue. Very few areas of exposed tendon. A very small area, less than 1 cm, with some necrotic eschar. Left foot from the Achilles tendon to the mid calf: There is a pressure ulcer with granulation tissue. No purulence. No redness. Multiple scales on the left foot, left leg. IMPRESSION: 1. Acute osteomyelitis of the right foot, status post debridement with polymicrobial idania including Streptococcus, Gemella, Proteus. The patient will be switched from IV Zosyn to IV Rocephin for anticipated discharge home on IV antibiotics. 2. Peripheral vascular disease, status post recent stenting by Dr. Mcdaniels. 3. Retroperitoneal bleed from angiogram, improving. PLAN: IV Midline will be scheduled for tomorrow. IV Zosyn will be discontinued, switched to Rocephin 2 grams daily for home IV antibiotic to finish a course for a total of 6 weeks with anticipated discontinuing antibiotic on 12/24/2019. Labs on discharge would include CBC, CMP, CRP, sedimentation rate weekly. Anticipated discharge next week, Monday or Monday. [facility]
[2019-11-29 06:00] VITALS: BP 142/66
[2019-11-29 06:41] LABS: BASO # 0.1 10^3/uL (0.0-0.2); BASO % 1.3 % (0.0-1.0); EOS # 0.3 10^3/uL (0.0-0.5); EOS % 3.3 % (0.0-3.0); HEMOGLOBIN 9.3 g/dl (13.5-17.5); LYMPH # 1.4 10^3/uL (1.5-5.0); LYMPH % 18.3 % (24.0-44.0); MEAN CORPUSCULAR HEMOGLOBIN 23.3 pg (27.0-33.0); MEAN CORPUSCULAR HGB CONC 28.2 g/dl (32.0-36.5); MEAN CORPUSCULAR VOLUME 82.7 fl (80.0-96.0); MONO # 0.7 10^3/uL (0.0-0.8); MONO % 9.9 % (0.0-5.0); NEUTROPHILS % 66.4 % (36.0-66.0); PLATELET COUNT, AUTOMATED 246 10^3/uL (150-450); RED BLOOD COUNT 3.99 10^6/uL (4.30-6.10); WHITE BLOOD COUNT 7.5 10^3/uL (4.0-10.0)
[2019-11-29 07:03] LABS: BLOOD UREA NITROGEN 31 MG/DL (7-18); C REACTIVE PROTEIN QUANTITATIV 3.41 MG/DL (0.00-0.30); CALCIUM LEVEL 8.7 MG/DL (8.8-10.2); CARBON DIOXIDE LEVEL 29 MEQ/L (21-32); CHLORIDE LEVEL 107 MEQ/L (98-107); CREATININE FOR GFR 1.28 MG/DL (0.70-1.30); GLOMERULAR FILTRATION RATE > 60.0 (>49); GLUCOSE, FASTING 234 MG/DL (70-100); POTASSIUM SERUM 4.2 MEQ/L (3.5-5.1); SODIUM LEVEL 143 MEQ/L (136-145)
[2019-11-29] MEDS: IPRATROPIUM 0.5MG/ALBUTEROL 2.5MG INH SOL UD 3ML (DUONEB)(J7620) NEB SCH ×3 (07:50→19:47)
[2019-11-29] MEDS: ASCORBIC ACID 500 MG TAB PO SCH ×2 (09:17→20:47)
[2019-11-29] MEDS: cefTRIAXone SOD 2 GM in D5W MINI-BAG PLUS 50 ML IV SCH (09:17)
[2019-11-29] MEDS: APIXABAN 5 MG TAB (ELIQUIS) PO SCH ×2 (09:17→20:47)
[2019-11-29] MEDS: PANTOPRAZOLE 40MG TAB (PROTONIX) PO SCH (09:17)
[2019-11-29] MEDS: DULoxetine 30 MG CAP (CYMBALTA) PO SCH (09:17)
[2019-11-29] MEDS: glipiZIDE XL 5 MG TABCR PO SCH (09:17)
[2019-11-29] MEDS: amLODIPine 10 MG TAB PO SCH (09:18)
[2019-11-29] MEDS: ZINC SULFATE 220 MG CAP PO SCH (09:18)
[2019-11-29] MEDS: MAGNESIUM GLUCONATE 500 MG TAB PO SCH (09:18)
[2019-11-29] MEDS: ACETAMINOPHEN 500 MG TAB PO SCH ×2 (09:19→18:37)
[2019-11-29] MEDS: GABAPENTIN 300 MG CAP PO SCH ×3 (09:19→20:47)
[2019-11-29] MEDS: lisinopriL 5 MG TAB PO SCH (09:19)
[2019-11-29] MEDS: BACLOFEN 10 MG TAB PO SCH ×3 (09:19→20:47)
[2019-11-29] MEDS: HumaLOG INSULIN (NovoLOG) PER UNIT SC SCH ×4 (09:20→20:49)
[2019-11-29] MEDS: METOPROLOL TART 25 MG TABLET PO SCH ×2 (09:20→20:47)
[2019-11-29] MEDS: LEVEMIR (INSULIN DETEMIR) 1 UNITS/0.01ML SC SCH ×2 (09:21→20:48)
[2019-11-29] MEDS: REMEDY PHYTOPLEX Z-GUARD PASTE 113GM TUBE (FROM STOREROOM PRODUCT) TOP SCH ×3 (09:29→21:58)
[2019-11-29] MEDS: oxyCODONE 5MG TAB PO PRN ×3 (10:44→20:48)
[2019-11-29] MEDS: SENNA 8.6 MG TAB (SENOKOT) PO SCH (10:45)
[2019-11-29] MEDS ORDERED: INSUNSD SQ (10:55)
[2019-11-29] MEDS ORDERED: GABA-843 PO (10:55)
[2019-11-29] MEDS ORDERED: SALMDISK INH (10:55)
[2019-11-29] MEDS ORDERED: ASPI81TAEC PO (10:55)
[2019-11-29] MEDS ORDERED: LISI-542 PO (10:55)
[2019-11-29] MEDS ORDERED: CYMB1CAP5 PO (10:55)
[2019-11-29] MEDS ORDERED: BACL10TA2 PO (10:55)
[2019-11-29] MEDS ORDERED: GLIP5TAB20 PO (10:55)
[2019-11-29] MEDS ORDERED: PRAV1TAB39 PO (10:55)
[2019-11-29] MEDS ORDERED: ZINC220CA PO (10:55)
[2019-11-29] MEDS ORDERED: AMLO10TA5 PO (10:55)
[2019-11-29] MEDS ORDERED: PANT40TA3 PO (10:55)
[2019-11-29] MEDS ORDERED: ASCO50TA PO (10:55)
[2019-11-29] MEDS ORDERED: ELIQ5TAB PO (10:55)
[2019-11-29] MEDS ORDERED: METO1TAB87 PO (10:55)
[2019-11-29 14:00] VITALS: BP 109/58
--- NOTE | 2019-11-29 16:28 | IPNPDOC ---
PM&R Progress Note DATE OF SERVICE: November 29, 2019 Supervisor [employer] Progress Note Subjective: Patient requesting to go home tomorrow, he states he feels strong and ready. REVIEW OF SYSTEMS: The following is a completed review of systems and has been reviewed. Review of systems otherwise unremarkable. PAIN: Patient self reports no pain EYES: No recent vision changes EARS, NOSE, & THROAT:No throat pain, or dysphagia, or rhinorrhea CARDIOVASCULAR: Denies chest pain or palpitations PULMONARY: Denies shortness of breath GASTROINTESTINAL: Denies constipation/diarrhea GENITOURINARY: denies dysuria MUSCULOSKELETAL:generalized weakness NEUROLOGICAL:+peripheral polyneuropathy HEMATOLOGICAL: denies easy bruising SKIN: right dorsal foot wound, posterior left calf wound PSYCHIATRIC: Unremarkable All other review of systems found to be negative. PHYSICAL EXAMINATION: VITAL SIGNS: Please see below. GENERAL: Pleasant and cooperative. No acute distress. HEENT: PERRL. Extraocular movements intact. Clear conjunctiva CARDIOVASCULAR: Irregular rate and rhythm. No murmurs, rubs, or gallops LUNGS: Clear to auscultation bilaterally. No wheezes. No rhonchi ABDOMEN: Soft, nontender, nondistended. Positive bowel sounds. Normal active bowel sounds NEUROLOGICAL: Alert and oriented times three. Cranial nerves II through XII grossly intact. Sensation diminished to light touch bilat LE in stocking pattern EXTREMITIES: 5-\5 strength bilateral upper extremities. 4/5 right hip flexion, knee extension, 3/5 ankle DF, 0/5 EHL 1/5 left hip flexion, 3/5 knee extension 0/5 ankle DF/EHL SKIN: *hyperkeratotic calves L>R, posterior left calf with vertical wound with healthy granulation tissue, no exudate -right dorsal foot wound bed with granulation tissue scant exudate, mary wound less macerated, right sided interdigits and bottom of toes less macerated (improving) -posterior neck hyperpigmented bullous lesion ASSESSMENT:64-year-old M with past medical history of DM and PVD who presents status post right dorsal foot infection PLAN: 1.Rehab- PT/OT advance gait and ADL training, strengthen/stretch/maintain ROM all 4limbs 2. Neuro: peripheral polyneuropathy due to longstanding DM with gait impairment, optimize DM management 3. Cardiac: Afib c/u Eliquis and beta-chio -hx of CAD s/p stenting c/u ASA -chronic diastolic CHF grade 2, c/u daily weight, fluid restrict, monitor for fluid overload -HTN c/u lisinopril and amlodipine, medicine consulted to assist in overall management -HLD c/u statin 4. Resp: c/u duonebs, monitor for infection -CLAUDIA may use own cpap 5. Endo: DM with peripheral polyneuropathy. c/u Levemir, ISS, will add back glipizide 6. Pain: chronic low back pain with chronic opioid use, c/u fentanyl, oxycodone, gabapentin, cymbalta, baclofen -naloxone ordered prn 7. GI ppx: protonix 8. DVT ppx: on eliquis 9. ID: s/p Zosyn, switched to Ceftriaxone, will receive home infusion for for osteomyelitis s/p right dorsal foot debridement, follow CRPs, dressing changed 11/25 and 11/28/19 c/u dressing changes per order, ID recs appreciated -c/u vitamin C and zinc added for wound healing -f/u Dr. Romano 10. Derm: suspect patient has scleroderma or some other type of connective tissue d/o will refer to derm on d/c 11. Dispo: 11-30-19 to home, per patient's request, he would benefit from more rehab, but is safe to go home with help from his Allergies Coded Allergies: TAPE (Verified Allergy, Mild, RASH/BLISTERS, 08/15/19) No Known Drug Allergies (Verified Allergy, Unknown, 08/15/19) Vital Signs Vital Signs Date Time Temp Pulse Resp B/P (MAP) Pulse Ox O2 Delivery O2 Flow Rate FiO2 11/29/19 14:00 96.9 96 18 109/58 (75) 97 Room Air Laboratory Data CBC/BMP Laboratory Tests 11/29/19 06:13 Labs 24H Laboratory Tests 2 11/28/19 16:36: Bedside Glucose (Misc Panel) 206H 11/28/19 20:04: Bedside Glucose (Misc Panel) 241H 11/29/19 06:13: Immature Granulocyte % (Auto) 0.8, Neutrophils (%) (Auto) 66.4H, Lymphocytes (%) (Auto) 18.3L, Monocytes (%) (Auto) 9.9H, Eosinophils (%) (Auto) 3.3H, Basophils (%) (Auto) 1.3H, Neutrophils # (Auto) 5.0, Lymphocytes # (Auto) 1.4L, Monocytes # (Auto) 0.7, Eosinophils # (Auto) 0.3, Basophils # (Auto) 0.1, Nucleated Red Blood Cells % (auto) 0.0, Anion Gap 7L, Glomerular Filtration Rate > 60.0, Calcium Level 8.7L, C-Reactive Protein, Quantitative 3.41H 11/29/19 11:32: Bedside Glucose (Misc Panel) 273H Current Medications Current Medications Current Medications Medications (Trade) Dose Ordered Sig/Lexi Route PRN Reason Start Time Stop Time Status Last Admin Dose Admin Acetaminophen (Tylenol Tab) 1,000 mg TID PO 11/25/19 21:00 11/29/19 09:19 Albuterol/ Ipratropium (Duoneb (Ipr 0.5mg/Alb 2.5mg)) 3 ml RTID NEB 11/25/19 20:00 11/29/19 13:34 Amlodipine Besylate (Norvasc) 10 mg DAILY PO 11/26/19 09:00 11/29/19 09:18 Apixaban (Eliquis) 5 mg BID PO 11/25/19 21:00 11/29/19 09:17 Ascorbic Acid (Vitamin C) 500 mg BID PO 11/26/19 21:00 11/29/19 09:17 Aspirin (Ecotrin) 81 mg QHS PO 11/25/19 21:00 11/28/19 20:19 Baclofen (Lioresal) 10 mg TID PO 11/25/19 21:00 11/29/19 09:19 Bisacodyl (Dulcolax Suppository) 10 mg DAILYPRN PRN MD CONSTIPATION 11/25/19 17:30 Ceftriaxone Sodium 2 gm/ Dextrose 50 ml @ 100 mls/hr Q24H IV 11/29/19 09:00 11/29/19 09:17 Dextrose (Dextrose 50%) 25 ml ASDIRECTED PRN IV SEE LABEL COMMENTS 11/25/19 17:30 Docusate Sodium (Colace) 100 mg BID PO 11/25/19 21:00 11/27/19 15:12 DC 11/26/19 20:56 Docusate Sodium (Colace) 100 mg BID PRN PO constipation 11/27/19 19:00 Duloxetine HCl (Cymbalta) 60 mg DAILY PO 11/26/19 09:00 11/29/19 09:17 Fentanyl (Duragesic) 100 mcg Q72H TOP 11/27/19 09:00 11/27/19 08:20 Gabapentin (Neurontin) 600 mg TID PO 11/25/19 21:00 11/29/19 09:19 Glipizide (Glucotrol Xl) 10 mg DAILY@0730 PO 11/26/19 07:30 11/29/19 09:17 Glucagon (Glucagon) 1 mg ASDIRECTED PRN SC SEE LABEL COMMENTS 11/25/19 17:30 Glucose (Glucose) 16 GM ASDIRECTED PRN PO SEE LABEL COMMENTS 11/25/19 17:30 Insulin Detemir (Levemir Insulin) 60 units BID SC 11/25/19 21:00 11/27/19 10:35 DC 11/27/19 08:22 Insulin Detemir (Levemir Insulin) 64 units BID SC 11/27/19 21:00 11/29/19 10:47 DC 11/29/19 09:21 Insulin Detemir (Levemir Insulin) 66 units BID SC 11/29/19 21:00 Insulin Human Lispro (HumaLOG INSULIN) SEE PROTOCOL TABLE AC SC 11/25/19 17:30 11/29/19 12:06 Insulin Human Lispro (HumaLOG INSULIN) SEE PROTOCOL TABLE QHS SC 11/25/19 21:00 11/27/19 20:50 Lisinopril (Prinivil) 5 mg DAILY PO 11/26/19 09:00 11/29/19 09:19 Magnesium Gluconate (Magnesium Gluconate) 500 mg DAILY PO 11/26/19 09:00 11/29/19 09:18 Metoprolol Tartrate (Lopressor) 25 mg BID PO 11/25/19 21:00 11/29/19 09:20 Naloxone HCl (Narcan) 0.1 mg Q5MP PRN IV RESP. RATE < 10 11/25/19 17:30 Non-Formulary Medication ( See Comment Field Below ) SEE COMMENT SECTION ASDIRECTED XX 11/25/19 17:30 Oxycodone HCl (Roxicodone, Oxyir) 5 mg Q4HP PRN PO PAIN 11/25/19 17:30 11/29/19 10:44 Pantoprazole Sodium (Protonix) 40 mg DAILY PO 11/26/19 09:00 11/29/19 09:17 Piperacillin Sod/ Tazobactam Sod 3.375 gm/Dextrose 50 ml @ 50 mls/hr Q6H IV 11/25/19 20:00 11/28/19 23:00 DC 11/28/19 20:17 Pravastatin Sodium (Pravachol) 20 mg QHS PO 11/25/19 21:00 11/28/19 20:19 Senna (Senokot) 1 tab QHS PO 11/25/19 21:00 11/28/19 20:19 Zinc Sulfate (Zinc Sulfate) 220 mg DAILY PO 11/26/19 09:00 11/29/19 09:18 ANNETTE PLAZA MD November 29, 2019 16:28
[2019-11-29] MEDS ORDERED: LIDOCAINE 1% MDV 20ML VIAL As Ordered ONE (16:35)
[2019-11-29 20:00] VITALS: BP 151/67
[2019-11-29] MEDS: ASPIRIN 81 MG ENTERIC TAB PO SCH (20:47)
[2019-11-29] MEDS: PRAVASTATIN 20 MG TAB PO SCH (20:47)
[2019-11-30] MEDS: ACETAMINOPHEN 500 MG TAB PO SCH ×2 (01:07→08:08)
[2019-11-30 06:00] VITALS: BP 142/82
[2019-11-30] MEDS: IPRATROPIUM 0.5MG/ALBUTEROL 2.5MG INH SOL UD 3ML (DUONEB)(J7620) NEB SCH ×2 (07:19→13:35)
[2019-11-30] MEDS: fentaNYL 100 MCG/HR PATCH TOP SCH (08:02)
[2019-11-30] MEDS: cefTRIAXone SOD 2 GM in D5W MINI-BAG PLUS 50 ML IV SCH (08:04)
[2019-11-30] MEDS: MAGNESIUM GLUCONATE 500 MG TAB PO SCH (08:07)
[2019-11-30] MEDS: glipiZIDE XL 5 MG TABCR PO SCH (08:07)
[2019-11-30] MEDS: ZINC SULFATE 220 MG CAP PO SCH (08:07)
[2019-11-30] MEDS: APIXABAN 5 MG TAB (ELIQUIS) PO SCH (08:07)
[2019-11-30] MEDS: BACLOFEN 10 MG TAB PO SCH (08:07)
[2019-11-30] MEDS: DULoxetine 30 MG CAP (CYMBALTA) PO SCH (08:07)
[2019-11-30 08:08] VITALS: BP 141/71
[2019-11-30] MEDS: PANTOPRAZOLE 40MG TAB (PROTONIX) PO SCH (08:08)
[2019-11-30] MEDS: amLODIPine 10 MG TAB PO SCH (08:08)
[2019-11-30] MEDS: ASCORBIC ACID 500 MG TAB PO SCH (08:08)
[2019-11-30] MEDS: lisinopriL 5 MG TAB PO SCH (08:08)
[2019-11-30] MEDS: GABAPENTIN 300 MG CAP PO SCH (08:08)
[2019-11-30] MEDS: METOPROLOL TART 25 MG TABLET PO SCH (08:08)
[2019-11-30] MEDS: HumaLOG INSULIN (NovoLOG) PER UNIT SC SCH ×2 (08:09→12:34)
[2019-11-30] MEDS: LEVEMIR (INSULIN DETEMIR) 1 UNITS/0.01ML SC SCH (08:09)
[2019-11-30] MEDS: REMEDY PHYTOPLEX Z-GUARD PASTE 113GM TUBE (FROM STOREROOM PRODUCT) TOP SCH (08:10)
--- NOTE | 2019-12-02 09:18 | REP ---
MIDLINE CATHETER INSERTION WAS SITE RITE The procedure was performed under the general supervision of Dr. Meza. The risks and benefits of the procedure were explained to the patient and informed consent was obtained. The right basilic vein was localized using ultrasound guidance. The skin was prepped and draped in a sterile fashion. 1% lidocaine was used as a local anesthetic. Using ultrasound guidance the basilic vein was cannulated and a 0.018 guidewire was inserted. The needle was removed and a 4.5 [place]ic dilator and peel-away sheath was inserted over the guide wire. A 4.5 [place]ic single-lumen catheter was left at a length of 16.5 cm. The dilator was removed and the catheter was inserted over the guide wire. The catheter was affixed to the skin and a sterile dressing was applied. The patient tolerated the procedure well and there were no immediate complications. After the appropriate amount of monitored convalescence the patient was discharged from the department. Electronically Signed by KALE Disla 11/29/2019 06:09 P Electronically Signed by Luther Meza MD 12/02/2019 09:10 A
--- NOTE | 2019-12-05 11:29 | PMRDS ---
DATE OF ADMISSION: 11/25/2019 DATE OF DISCHARGE: 11/30/2019 CHIEF COMPLAINT/DISCHARGE DIAGNOSIS: Peripheral polyneuropathy due to diabetes and right lower extremity wound. HISTORY OF PRESENT ILLNESS: 64M pmh DM2 with peripheral polyneuropathy, CAD with stents, Afib on eliquis, chronic anemia, CLAUDIA on CPAP, CKD, PVD, chronic wounds presented to [facility] ED on 11-12-19 with fevers and chills found to have leukocytosis with a non-healing ulcer on the dorsum of his right foot. He was started on IV antibiotics, and underwent debridement performed by Dr. Romano on 11-13-19. Bone biopsy was positive for osteomyelitis and his case followed closely by ID who directed antibiotic coverage. He was seen by vascular who performed an aortoiliofemoral arteriogram with angioplasty of the SFA with distal stenting on 11-19-19 which was complicated by a possible retroperitoneal hematoma which follow-up angiogram was negative for extravasation. His blood sugars were difficult to control, he was evaluated by therapy, found to have impairments in mobility and ADLs below his prior level of function and deemed medically appropriate for discharge to ARU on 11-25-19. PAST MEDICAL HISTORY: As per history of present illness (HPI). HOSPITAL COURSE: The patient was admitted and enrolled in a comprehensive physical therapy (PT)/occupational therapy (OT) program. He received 24-hour nursing supervision, and weekly team meetings were held to discuss his progress. The patient was continued on Zosyn for his osteomyelitis and received frequent dressing changes. His C-reactive protein (CRP) trended down, and he was started on vitamin C and zinc to his overall wound healing. The patient's fingersticks were relatively well controlled, and he was maintained on his home regimen of pain medication. He was treated for his chronic diastolic congestive heart failure (CHF) with daily weights, fluid restrictions, and his blood pressure was overall well controlled. He was deemed medically and functionally stable to return home with infusion antibiotics. DISCHARGE MEDICATIONS: As per instructions. FUNCTIONAL HISTORY ON DISCHARGE: The patient was modified independent, able to ambulate at a modified independent level with a rolling walker; and in occupational therapy, he was standby assist for upper body dressing and bathing. Min assist for lower body dressing. Thank you for this referral.
[2019-12-07] MEDS ORDERED: INSUNSD SC ×2 (19:30)
[2019-12-07] MEDS ORDERED: BACL1TAB8 PO (19:30)
[2019-12-07] MEDS ORDERED: OXYC10TA12 PO (19:30)
[2019-12-07] MEDS ORDERED: INSURSDRX SC (19:30)
[2019-12-07] MEDS ORDERED: INSUDET SC (19:30)
[2019-12-07] MEDS ORDERED: INSURSD SC (19:30)
[2019-12-07] MEDS ORDERED: CEFT1INJ5 IJ (20:13)
[2019-12-09] MEDS ORDERED: INSUDET SC (13:08)
[2019-12-09] MEDS ORDERED: FLAG500T PO (13:08)
[2019-12-11] MEDS ORDERED: INSURSDRX SC (13:01)
[2019-12-11] MEDS ORDERED: INSURSD SC (13:01)
[2019-12-11] MEDS ORDERED: INSUNSD SC ×2 (13:01)
== END 2019-11-30 15:33 | disposition home health service (06) | DRG 74 ==
LOC: M PM&R 17:00
PROVIDERS: ADMIT Physical Medicine & Rehabilitation; ATTEND Physical Medicine & Rehabilitation
PROC: 05HB33Z Insertion of Infusion Device into Right Basilic Vein, Percutaneous Approach (ICD-10-PCS; principal; 2019-11-29 14:00)
DX: E11.42 Type 2 diabetes mellitus with diabetic polyneuropathy (principal); I50.32 Chronic diastolic (congestive) heart failure; I13.0 Hypertensive heart and chronic kidney disease with heart failure and stage 1 through stage 4 chronic kidney disease, or unspecified chronic kidney disease; M86.171 Other acute osteomyelitis, right ankle and foot; K91.871 Postprocedural hematoma of a digestive system organ or structure following other procedure; I25.10 Atherosclerotic heart disease of native coronary artery without angina pectoris; I48.91 Unspecified atrial fibrillation; D64.9 Anemia, unspecified; G47.33 Obstructive sleep apnea (adult) (pediatric); N18.9 Chronic kidney disease, unspecified; E11.22 Type 2 diabetes mellitus with diabetic chronic kidney disease; E11.51 Type 2 diabetes mellitus with diabetic peripheral angiopathy without gangrene; R53.1 Weakness; E11.621 Type 2 diabetes mellitus with foot ulcer; M34.9 Systemic sclerosis, unspecified; L97.519 Non-pressure chronic ulcer of other part of right foot with unspecified severity; Z95.820 Peripheral vascular angioplasty status with implants and grafts; Z89.422 Acquired absence of other left toe(s); Z98.1 Arthrodesis status; Z95.5 Presence of coronary angioplasty implant and graft; Z85.820 Personal history of malignant melanoma of skin; Z87.891 Personal history of nicotine dependence; R26.89 Other abnormalities of gait and mobility; M54.5 Low back pain; Z79.01 Long term (current) use of anticoagulants; Z79.82 Long term (current) use of aspirin; Z79.4 Long term (current) use of insulin; Z79.891 Long term (current) use of opiate analgesic; Z79.899 Other long term (current) drug therapy; Z91.048 Other nonmedicinal substance allergy status; E78.5 Hyperlipidemia, unspecified

== ENCOUNTER 2019-12-05 16:19 | Emergency (ER) | payer MEDICARE, BC ==
[~2019-12-05] VITALS: Ht 180.3 cm; Wt 109.1 kg
[~2019-12-05 16:19] MED LIST changes: -BACL1TAB8 PO; -CEFT1INJ5 IJ; -FLAG500T PO; -INSURSDRX SC
[2019-12-05] MEDS ORDERED: NS 1,000 ML IV SCH (16:30)
[2019-12-05 16:43] LABS: VENOUS BASE EXCESS 1.4 (-2.0-2.0); VENOUS HCO3 28.7 MEQ/L (23.0-27.0); VENOUS O2 SATURATION 83.4 % (60.0-80.0); VENOUS PARTIAL PRESSURE CO2 60.3 mmHg (38.0-50.0); VENOUS PARTIAL PRESSURE O2 53.1 mmHg (30.0-50.0); VENOUS PH 7.295 UNITS (7.330-7.430); VENOUS STANDARD HCO3 25.5 MEQ/L; VENOUS TOTAL CO2 30.5 MEQ/L (24.0-28.0)
[2019-12-05 16:50] LABS: BASO # 0.1 10^3/uL (0.0-0.2); BASO % 0.5 % (0.0-1.0); EOS # 0.1 10^3/uL (0.0-0.5); EOS % 0.8 % (0.0-3.0); HEMATOCRIT 28.3 % (42.0-52.0); HEMOGLOBIN 8.5 g/dl (13.5-17.5); LYMPH # 0.5 10^3/uL (1.5-5.0); LYMPH % 4.6 % (24.0-44.0); MEAN CORPUSCULAR HEMOGLOBIN 24.9 pg (27.0-33.0); MEAN CORPUSCULAR VOLUME 82.7 fl (80.0-96.0); MONO # 1.1 10^3/uL (0.0-0.8); MONO % 10.1 % (0.0-5.0); NEUTROPHILS # 9.2 10^3/uL (1.5-8.5); NEUTROPHILS % 83.5 % (36.0-66.0); PLATELET COUNT, AUTOMATED 255 10^3/uL (150-450); RED BLOOD COUNT 3.42 10^6/uL (4.30-6.10)
[2019-12-05 17:10] LABS: CALCIUM LEVEL 8.5 MG/DL (8.8-10.2); CREATININE FOR GFR 1.4 MG/DL (0.70-1.30); GLOMERULAR FILTRATION RATE 54.3 (>49); POTASSIUM SERUM 4.7 MEQ/L (3.5-5.1)
[2019-12-05 18:45] VITALS: BP 115/57
[2019-12-05 19:15] LABS: HEMOGLOBIN A1c 8.4 %
[2019-12-07] MEDS ORDERED: BACL1TAB8 PO (19:30)
[2019-12-07] MEDS ORDERED: INSUDET SC (19:30)
[2019-12-07] MEDS ORDERED: INSUNSD SC ×2 (19:30)
[2019-12-07] MEDS ORDERED: INSURSDRX SC (19:30)
[2019-12-07] MEDS ORDERED: OXYC10TA12 PO (19:30)
[2019-12-07] MEDS ORDERED: INSURSD SC (19:30)
[2019-12-07] MEDS ORDERED: CEFT1INJ5 IJ (20:13)
[2019-12-09] MEDS ORDERED: INSUDET SC (13:08)
[2019-12-09] MEDS ORDERED: FLAG500T PO (13:08)
[2019-12-11] MEDS ORDERED: INSURSD SC (13:01)
[2019-12-11] MEDS ORDERED: INSUNSD SC ×2 (13:01)
[2019-12-11] MEDS ORDERED: INSURSDRX SC (13:01)
== END 2019-12-05 19:17 | disposition home or self-care (01) ==
LOC: EDBD 16:19 → M ED 16:19
DX: E11.649 Type 2 diabetes mellitus with hypoglycemia without coma (principal); I10 Essential (primary) hypertension; N28.9 Disorder of kidney and ureter, unspecified; Z91.048 Other nonmedicinal substance allergy status; Z79.899 Other long term (current) drug therapy; Z79.82 Long term (current) use of aspirin; Z79.4 Long term (current) use of insulin; Z79.01 Long term (current) use of anticoagulants

== ENCOUNTER → 2019-12-05 | Outpatient (REF) | payer MEDICARE, BC ==
[~2019-12-05] MED LIST changes: +ASCO50TA PO; +ASPI81TAEC PO; +BACL1TAB8 PO; +CEFT1INJ5 IJ; +FLAG500T PO; +GLIP5TAB20 PO; +INSURSDRX SC; +ZINC220CA PO
== END ==
LOC: M LAB REF 12:25
PROVIDERS: ATTEND Surgery
DX: M86.9 Osteomyelitis, unspecified (principal); L97.222 Non-pressure chronic ulcer of left calf with fat layer exposed; L97.312 Non-pressure chronic ulcer of right ankle with fat layer exposed

== ENCOUNTER 2019-12-30 13:26 | Inpatient (IN) | payer MEDICARE, BC ==
[~2019-12-30] VITALS: Ht 180.3 cm; Wt 94.1 kg
[~2019-12-30 13:26] MED LIST changes: +BACL1TAB8 PO; +CEFT1INJ5 IJ; +FLAG500T PO; +INSURSDRX SC
[2019-12-30 15:30] VITALS: BP 125/72
[2019-12-30] MEDS ORDERED: MOM 30ML SUSPENSION UDC PO PRN (16:00)
[2019-12-30] MEDS ORDERED: MAALOX 30 ML SUSP *UDC PO PRN (16:00)
[2019-12-30 16:51] LABS: HEMOGLOBIN 8.8 g/dl (13.5-17.5); MEAN CORPUSCULAR HEMOGLOBIN 23.8 pg (27.0-33.0); MEAN CORPUSCULAR HGB CONC 28.4 g/dl (32.0-36.5); PLATELET COUNT, AUTOMATED 300 10^3/uL (150-450); RED BLOOD COUNT 3.69 10^6/uL (4.30-6.10)
[2019-12-30 17:14] LABS: BLOOD UREA NITROGEN 45 MG/DL (7-18); CALCIUM LEVEL 7.6 MG/DL (8.8-10.2); CARBON DIOXIDE LEVEL 25 MEQ/L (21-32); CHLORIDE LEVEL 105 MEQ/L (98-107); CREATININE FOR GFR 1.23 MG/DL (0.70-1.30); GLOMERULAR FILTRATION RATE > 60.0 (>49); GLUCOSE, FASTING 403 MG/DL (70-100); POTASSIUM SERUM 4.8 MEQ/L (3.5-5.1); SODIUM LEVEL 136 MEQ/L (136-145)
[2019-12-30] MEDS ORDERED: GLUCAGON INJ 1MG VIAL SC PRN (17:15)
[2019-12-30] MEDS ORDERED: DEXTROSE 50% 50 ML SYRINGE IV PRN (17:15)
[2019-12-30] MEDS ORDERED: GLUCOSE 4GM CHEW TABLET PO PRN (17:15)
[2019-12-30] MEDS ORDERED: MIDO5TA PO (17:55)
[2019-12-30] MEDS ORDERED: ATOR1TAB21 PO (17:55)
[2019-12-30] MEDS: PIPERACILLIN/TAZOBACTAM SOD 3.375 GM in D5W MINI-BAG PLUS 50 ML IV SCH (17:57)
[2019-12-30] MEDS ORDERED: LEVE1INJ5 SC (17:58)
[2019-12-30] MEDS ORDERED: POLY1POW38 PO (18:01)
[2019-12-30] MEDS ORDERED: APAP325T4 PO (18:01)
[2019-12-30] MEDS ORDERED: GUAI100S51 PO (18:01)
[2019-12-30] MEDS: HumaLOG INSULIN (NovoLOG) PER UNIT SC SCH ×2 (18:02→20:24)
[2019-12-30] MEDS ORDERED: INSURSDRX SC (18:08)
[2019-12-30] MEDS ORDERED: OXYC20TA2 PO (18:08)
[2019-12-30] MEDS ORDERED: SALMDISK INH (18:08)
[2019-12-30] MEDS ORDERED: INSUNSD SC ×2 (18:08)
--- NOTE | 2019-12-30 18:08 | HPEPDOC ---
[facility] Medical History & Physical Date of Admission Dec 30, 2019 Date of Service: Dec 30, 2019 Attending Physician: SYLVIA MOLINA MD History and Physical TIME OF SERVICE: 4:55 PM CHIEF COMPLAINT: Weakness HISTORY OF PRESENT ILLNESS: There were inconsistencies between in the history provided by the hospitalist from [facility], medical records and the patient's recollection of the events. This 64 old gentleman reported falling asleep on Monday night in his recliner, when he woke up on Monday morning, he found himself jail between the recliner and on the floor. At the time, he felt weak, dizzy, he had fever and chills, and his left leg hurt more than usual. He denied having any chest pain, runny nose, cough, abdominal pain, pain with urination, or recent falls. At [facility], he was found to be in rapid A. fib. His chest x-ray showed bilateral effusions wall. CT of the chest showed bilateral effusions with atelectasis versus pneumonia at the right side. CT of the abdomen and pelvis showed of the left posterior oh leak fluid collection that was 6.1 x 3.2 cm in size that may represent a hematoma; was also noted that he had left hip avascular necrosis. Blood cultures drawn on the were positive for staph aureus. He also had an echo done which showed an EF of 50%. He was also noted to have a right foot infection with visible bone; the patient reported that the dressings changed on Monday by his home RN and again today at the hospital. For the rapid atrial fibrillation which was thought to be due to an infection he started on metoprolol and then transitioned to amiodarone. For the possible pneumonia and foot infections, according to the hospitalist, the patient was on vancomycin and meropenem but based on the medical records the patient was on Zosyn. He was offered MRI to further evaluate the left femoral head collapse, but the patient declined because this was a diagnosis that he had known about in the past. This morning, his WBC count was 14, hemoglobin is 9.1, platelets were 292, sodium was 135, potassium was 5.0, chloride is 101, bicarbonate was 23, BUN was 43, creatinine was 1.1, and glucose is 301. His most recent lactic acid was 1.4. Just prior to transfer, he was still in rapid A. fib and was transferred to [facility] while on an amiodarone drip. On my evaluation, this afternoon the patient and reported feeling better overall, he denied having fevers or chills or any acute pain. REVIEW OF SYSTEMS: 12 point review of systems negative except as listed in HPI PAST MEDICAL/ SURGICAL HISTORY: Chronic atrial fibrillation Charcot foot IDDM with neuropathy Right foot osteomyelitis PVD with stent placement CAD s/p stent placement/dyslipidemia Chronic HTN OA of the hip CLAUDIA, noncompliant with CPAP History of melanoma Rotator cuff surgery Left first toe amputation SOCIAL HISTORY: He is a smoker Lives with his . Has a home RN visits FAMILY HISTORY: Cancer ALLERGIES: Please see below. HOME MEDICATIONS: Please see below. PHYSICAL EXAMINATION: Vital Signs Date Time Temp Pulse Resp B/P (MAP) Pulse Ox O2 Delivery O2 Flow Rate FiO2 12/30/19 15:30 97.0 121 19 125/72 (89) 99 Nasal Cannula 3.0 GEN: well-nourished / well developed/ NAD INTEGUMENT: Both lower extremities are wrapped in clean and dry dressings HEENT: NCAT / mucus membranes moist and pink CVS: RRR/NMRG/radial pulses diminished LUNGS: lungs are clear to auscultation bilaterally on room air ABDOMEN: Contour ( obese) / is a small, and local hernia/ abdomen soft & not tender with palpation NEURO: CN 2-12 are grossly intact / speech is not dysarthric PSYCH: alert and oriented / able to understand and follow all commands LABORATORY DATA: IMAGING: Repeat CT of the abdomen with contrast is pending MICROBIOLOGY: See HPI ASSESSMENT: Mr. Alex is an 85-year-old with a history of IDDM with neuropathy and chronic foot infections, CAD, HTN, and multiple surgeries, who was transferred from [facility] for higher level of care; we will continue to treat his atrial fibrillation, possible staph bacteremia, bilateral lower extremity infections, and determine the cause of the left posterior oblique fluid collection found on CT of the abdomen. PLAN: 1. Atrial Fibrillation RVR which may be due to bacteremia had resolved on arrival Recent echo showed EF of 50% and no valvulopathy Plan: admit to PCU / telemetry / transition from amiodarone drip to amiodarone 200mg BID/ hold eliquis pending CT to r/o posterior oblique hematoma / hold metoprolol bc of recent hypotension 2. Possible Staph aureus bacteremia Source may be bilateral lower extremity wounds. Plan: Follow up repeat blood cultures/continue with Zosyn / call [facility] for final blood cx sensitivity results 3.Left posterior oblique fluid collection. Possibly due to hematoma He is on blood thinners. His hemoglobin has dropped 1 unit since this morning. Plan: f/u CT of the abdomen w contrast to r/o hematoma and trend Hg / hold eliqus and ASA 4. Normocytic anemia Plan: f/u serial Hg, iron studies, type and screen 5. Chronic Bilateral foot infections Plan: will ask day time team to call / c/w abx 6. Uncontrolled IDDM with neuropathy Plan: f/u accuchecks & A1C / hypoglycemia protocol / sliding scale insulin / hold glipizide & metformin / levemir 40 units BID (home dose of long acting insulin is levemir 60 units BID) / gabapentin 7. Chronic HTN He was hypotensive this AM per [facility] providers - hold lisinopril, amlodipine / c/w metoprolol for rate control if BP permits 8. CAD, status post stent placement/dyslipidemia - hold ASA and metoprolol / for unclear reasons the EMR has both simvastatin and atorvastatin listed, I will hold both meds for now pending clarification with the pharmacists 9. Left femoral head collapse/avascular necrosis - f/u w PCP on an out pt basis 10. Bilateral Pleural Effusions CTs of the chest reported bilateral pleural effusions and possible right-sided atelectasis versus pneumonia, but the patient doesn't have upper respiratory tract symptoms consistent with clinical pneumonia Plan: continue to monitor DVT PROPHYLAXIS: n/a pending r/o hematoma DISPOSITION: home after more than 2 midnight's stay LATE ENTRY 930PM CT of the abdomen showed IMPRESSION: 1. Left retroperitoneal hematoma which may be partially within the posterior fibers of the left transverse abdominal muscle, tracking into the left pelvis. Overall, the collection is smaller in size, except for a small distal bulbous component in the left pelvis. Mild adjacent fat stranding. 2. Extensive atherosclerosis with multi segment stenoses presumably present in the external iliac and less so common iliac arteries as well as internal iliac arteries bilaterally given degree of calcification. 3. New body wall edema suggesting anasarca. 4. Small bilateral pleural effusions, new on the right and increased on the left. Bibasilar presumed atelectasis, although superimposed pneumonia is not excluded. 5. Either slightly radiopaque gallstones or in the gallbladder. 6. Bilateral inguinal lymphadenopathy, more pronounced..." I discussed the finding of the retroperitoneal hematoma with who agreed with holding eliquis and ASA and trending the Hg. If the patient's Hg drops below 7 and the patient develops hypotension we will officially consult Gen Surg or IR. Home Medications Scheduled Amlodipine Besylate (Amlodipine Besylate) 10 Mg Tablet, 10 MG PO DAILY Apixaban (Eliquis) 5 Mg Tablet, 5 MG PO BID Ascorbic Acid (Vitamin C) 500 Mg Tablet, 1 TAB PO DAILY Aspirin (Aspir 81) 81 Mg Tablet.dr, 81 MG PO QHS Atorvastatin Calcium (Atorvastatin Calcium) 20 Mg Tablet, 20 MG PO DAILY Baclofen (Baclofen) 10 Mg Tablet, 10 MG PO QHS Duloxetine Hcl (Duloxetine HCl) 60 Mg Capsule.dr, 60 MG PO DAILY Fentanyl (Fentanyl) 100 Mcg Patch.td72, 100 MCG TOP Q3D CURRENTLY APPLIED TO STOMACH Gabapentin (Gabapentin) 600 Mg Tablet, 600 MG PO TID Glipizide (Glipizide ER) 10 Mg Tab.er.24, 10 MG PO DAILY Insulin Detemir (Levemir Flextouch) 100 Unit/1 Ml Insuln.pen, 60 UNIT SC BID HOLD IF FINGER STICK IS LESS THAN 100 Insulin Human NPH (Humulin N) 100 Unit/1 Ml Vial, 25 UNITS SC QAM Insulin Human NPH (Humulin N) 100 Unit/1 Ml Vial, 13 UNITS SC QPM Insulin Human NPH (Humulin N) 100 Unit/1 Ml Vial, 13 UNITS SC QPM WITH DINNER Insulin Human Regular (Humulin R) 100 Unit/1 Ml Vial, 25 UNITS SC BID MORNING AND NOON Latanoprost (Xalatan) 0.005% 2.5ML Drops, 1 DROP OU QHS Lisinopril (Lisinopril) 5 Mg Tablet, 5 MG PO DAILY Metformin HCl (Metformin HCl) 1,000 Mg Tablet, 1,000 MG PO BID Metoprolol Tartrate (Metoprolol Tartrate) 25 Mg Tablet, 25 MG PO BID Midodrine HCl (Midodrine HCl) 5 Mg Tablet, 5 MG PO TID Multivitamins (Thera M Plus Tablet) 1 Each Tablet, 1 TAB PO DAILY Niacin (Niacor) 500 Mg Tablet, 1,000 MG PO QHS [place]-3 Fatty Acids/Fish Oil (Fish Oil 1,000 mg Capsule) 1 Each Capsule, 1,000 MG PO DAILY Pantoprazole Sodium (Pantoprazole Sodium) 40 Mg Tablet.dr, 40 MG PO DAILY Pravastatin Sodium (Pravastatin Sodium) 20 Mg Tablet, 20 MG PO QHS Salmeterol (Serevent Diskus) 50 Mcg Blst.w.dev, 1 PUFF INH BID Zinc Sulfate (Zinc Sulfate) 220 Mg Capsule, 220 MG PO DAILY Scheduled PRN Acetaminophen (Acetaminophen) 325 Mg Tablet, 650 MG PO Q4HP PRN for COUGH Guaifenesin (Guaifenesin) 100 Mg/5 Ml Liquid, 200 MG PO Q4HP PRN for COUGH Oxycodone Hcl (Oxycodone HCl) 20 Mg Tablet, 10 MG PO QIDP PRN for PAIN TAKE ONE-HALF TO ONE TAB QID PRN Polyethylene Glycol 3350 (Polyethylene Glycol 3350) 17 Gm Powd.pack, 17 GRAM PO DAILYPRN PRN for CONSTIPATION Miscellaneous Medications [Patient Comment] UNABLE TO VERIFY WITH PATIENT, LIST OBTAINED THROUGH EXTERNAL MED HX AND [facility] Allergies Coded Allergies: TAPE (Verified Allergy, Mild, RASH/BLISTERS, 08/15/19) A-FIB/CHADSVASC A-FIB History Current/History of A-Fib/PAF?: Yes Current PO Anticoag Therapy: Yes SYLVIA MOLINA MD Dec 30, 2019 18:08
[2019-12-30] MEDS ORDERED: ZINC220CA PO (18:10)
[2019-12-30] MEDS ORDERED: VITA-158 PO (18:10)
[2019-12-30] MEDS ORDERED: METF-877 PO (18:10)
[2019-12-30] MEDS ORDERED: PATIENT COMMENT (18:11)
--- NOTE | 2019-12-30 18:33 | REPVR ---
PROCEDURE INFORMATION: Exam: CT Abdomen And Pelvis Without Contrast Exam date and time: 12/30/2019 5:42 PM Age: 64 years old Clinical indication: Abnormal findings; Abnormal radiologic finding of the abdomen; Radiologic exam and body structure: CT a/p; Additional info: F/u on possible L posterior oblique fluid collection on CT TECHNIQUE: Imaging protocol: Computed tomography of the abdomen and pelvis without contrast. Radiation optimization: All CT scans at this facility use at least one of these dose optimization techniques: automated exposure control; mA and/or kV adjustment per patient size (includes targeted exams where dose is matched to clinical indication); or iterative reconstruction. COMPARISON: CT ANGIO ABD/PEL 11/21/2019 9:20 AM FINDINGS: Pleural space: There are small bilateral pleural effusions, new on the right and increased on the left. Increased bibasilar presumed atelectasis particularly in the posterior aspect of the lower lobes. Superimposed pneumonia is possible but considered less likely. Blood within the heart is hypodense suggesting anemia. Coronary and aortic atherosclerosis noted. Calcifications along the aortic valve and mitral valve annulus. Liver: Normal. No mass. Gallbladder and bile ducts: Sludge or slightly radiopaque stones layering dependently in the gallbladder. No pericholecystic inflammatory changes or biliary ductal dilatation. Pancreas: Normal. No ductal dilation. Spleen: Normal. No splenomegaly. Adrenals: Normal. No mass. Kidneys and ureters: Normal. No hydronephrosis. Stomach and bowel: Unremarkable. No obstruction. No mucosal thickening. Appendix: Appendix is not seen. Intraperitoneal space: Trace edema in the pericolic gutters bilaterally Vasculature: There is extensive calcified atherosclerotic plaque in the abdominal aorta and medium-sized arteries in the abdomen and pelvis. No aortic aneurysm. Multi segment stenoses in the bilateral external and less so bilateral common iliac arteries as well as the bilateral internal iliac arteries given the degree of atherosclerotic calcification and narrowing. Lymph nodes: Mild bilateral inguinal lymphadenopathy, right more so than left. Fat in the right inguinal canal which may be arising from the abdomen. Bladder: Bladder is grossly unremarkable. Reproductive: There are a few prostatic calcifications. Bones/joints: No acute osseous abnormality. Severe osteoarthritis at the hip joints, more extensive on the left where there is presumed residual of prior femoral head/neck fracture with flattening on foreshortening, and [id number] configuration throughout with extensive osteophyte formation and surrounding bodies. Anterior bridging osteophytes at the sacroiliac joints. Multilevel degenerative disc and facet disease in the lumbar spine. There are diffuse enthesopathic changes consistent with benign diffuse idiopathic skeletal hyperostosis (DISH), with flowing ossification along the anterior longitudinal ligament bridging at least three levels in the thoracic spine. Soft tissues: Complex fluid collection consistent with a hematoma is seen either along the anterior margin or partially within the posterior fibers of the left transverse abdominal muscle, the innermost muscle of the 3 lateral abdominal wall muscles. This has decreased in size, currently measuring 6.4 cm oblique mediolateral by 3.7 cm oblique anterior-posterior. This is largest at its proximal extent and mostly tapers distally where it extends into the left pelvis with maximum craniocaudal extent of 26.7 cm the distal extent has thin segments measuring as little as 1.5 cm in anterior-posterior dimension. There is also a small component at the inferior extent with dimensions of 3.5 x 2.8 cm. Only this portion at the inferior most extent is slightly larger. Otherwise the collection is smaller in size and less dense. Minimal adjacent fat stranding. No new collection. There is now diffuse body wall edema suggesting anasarca. This is more pronounced along the flanks. There is bilateral mild gynecomastia. There is diffuse fatty muscle atrophy. IMPRESSION: 1. Left retroperitoneal hematoma which may be partially within the posterior fibers of the left transverse abdominal muscle, tracking into the left pelvis. Overall, the collection is smaller in size, except for a small distal bulbous component in the left pelvis. Mild adjacent fat stranding. 2. Extensive atherosclerosis with multi segment stenoses presumably present in the external iliac and less so common iliac arteries as well as internal iliac arteries bilaterally given degree of calcification. 3. New body wall edema suggesting anasarca. 4. Small bilateral pleural effusions, new on the right and increased on the left. Bibasilar presumed atelectasis, although superimposed pneumonia is not excluded. 5. Either slightly radiopaque gallstones or in the gallbladder. 6. Bilateral inguinal lymphadenopathy, more pronounced 7. Findings suggest Electronically signed by: Eli Camp On 12/30/2019 18:33:02 PM
[2019-12-30 18:39] LABS: INR 2.11; PROTHROMBIN TIME 23.4 SECONDS (11.8-14.0)
[2019-12-30 18:46] LABS: HEMOGLOBIN A1c 7.1 %
[2019-12-30 20:00] VITALS: BP 138/66
[2019-12-30] MEDS: LATANOPROST 0.005% OPHTH SOLN 2.5 ML OU SCH (21:00)
[2019-12-30] MEDS ORDERED: METOPROLOL TART 25 MG TABLET PO SCH (21:00)
[2019-12-30] MEDS ORDERED: MIRALAX *UNIT DOSE* 17GM PACKET PO PRN (21:15)
[2019-12-30] MEDS: AMIODARONE 200 MG TAB (PACERONE) PO SCH (21:51)
[2019-12-30] MEDS: LEVEMIR (INSULIN DETEMIR) 1 UNITS/0.01ML SC SCH (21:51)
[2019-12-30] MEDS: GABAPENTIN 300 MG CAP PO SCH (21:52)
[2019-12-31] VITALS: BP 127/74
[2019-12-31] MEDS: PIPERACILLIN/TAZOBACTAM SOD 3.375 GM in D5W MINI-BAG PLUS 50 ML IV SCH ×4 (00:11→17:50)
[2019-12-31 03:08] LABS: HEMATOCRIT 30.6 % (42.0-52.0); HEMOGLOBIN 8.9 g/dl (13.5-17.5); MEAN CORPUSCULAR HEMOGLOBIN 24.2 pg (27.0-33.0); MEAN CORPUSCULAR HGB CONC 29.1 g/dl (32.0-36.5); MEAN CORPUSCULAR VOLUME 83.2 fl (80.0-96.0); PLATELET COUNT, AUTOMATED 322 10^3/uL (150-450); RED BLOOD COUNT 3.68 10^6/uL (4.30-6.10); WHITE BLOOD COUNT 14.8 10^3/uL (4.0-10.0)
[2019-12-31] MEDS ORDERED: SLF 3 ML SYR IV PRN (03:15)
[2019-12-31 03:39] LABS: BLOOD UREA NITROGEN 42 MG/DL (7-18); CALCIUM LEVEL 7.9 MG/DL (8.8-10.2); CARBON DIOXIDE LEVEL 29 MEQ/L (21-32); CHLORIDE LEVEL 107 MEQ/L (98-107); CREATININE FOR GFR 1.13 MG/DL (0.70-1.30); GLOMERULAR FILTRATION RATE > 60.0 (>49); GLUCOSE, FASTING 382 MG/DL (70-100); POTASSIUM SERUM 5.4 MEQ/L (3.5-5.1); SODIUM LEVEL 139 MEQ/L (136-145)
[2019-12-31 04:00] VITALS: BP 122/70
[2019-12-31] MEDS: SLF 3 ML SYR IV SCH ×3 (05:59→20:28)
[2019-12-31] MEDS: HumaLOG INSULIN (NovoLOG) PER UNIT SC SCH ×4 (07:30→20:26)
[2019-12-31] MEDS: SALMETEROL DISKUS 50MCG INHALER (SEREVENT) INH SCH ×2 (08:00→17:51)
[2019-12-31 08:04] VITALS: BP 127/77
[2019-12-31] MEDS: DULoxetine 30 MG CAP (CYMBALTA) PO SCH (09:31)
[2019-12-31] MEDS: PANTOPRAZOLE 40MG TAB (PROTONIX) PO SCH (09:31)
[2019-12-31] MEDS: LEVEMIR (INSULIN DETEMIR) 1 UNITS/0.01ML SC SCH ×2 (09:31→20:26)
[2019-12-31] MEDS: GABAPENTIN 300 MG CAP PO SCH ×3 (09:31→20:27)
[2019-12-31] MEDS: AMIODARONE 200 MG TAB (PACERONE) PO SCH ×2 (09:32→20:27)
[2019-12-31] MEDS: fentaNYL 100 MCG/HR PATCH TOP SCH (09:34)
[2019-12-31 12:00] VITALS: BP 125/68
[2019-12-31] MEDS: diltiaZEM 125 MG in NS 100 ML IV SCH (12:34)
[2019-12-31 12:36] LABS: ALBUMIN 1.9 GM/DL (3.2-5.2); ALT/SGPT 34 U/L (12-78); BILIRUBIN,DIRECT < 0.1 MG/DL (0.0-0.2); BILIRUBIN,TOTAL 0.3 MG/DL (0.2-1.0); CPK CREATINE PHOSPHOKINASE 306 U/L (39-308); TOTAL PROTEIN 6.3 GM/DL (6.4-8.2)
[2019-12-31] MEDS ORDERED: SOD POLYSTYRENE SULFONATE SUSP 15 GM/60 ML UD PO ONE (13:00)
[2019-12-31] MEDS: VANCOMYCIN HCL 1,000 MG, VIAL MATE ADAPTER 1 EACH in D5W 250 ML IV SCH ×2 (13:02→14:24)
[2019-12-31 16:00] VITALS: BP 143/80
[2019-12-31] MEDS: oxyCODONE 5MG TAB PO PRN ×2 (16:12→20:27)
--- NOTE | 2019-12-31 17:27 | IPNPDOC ---
Date Seen The patient was seen on 12/31/19. Progress Note SUBJECTIVE: Patient was seen and examined this morning. The history taken from the medical record and patient is inconsistent. Appears the patient has chronic lower extremity wounds for which he follows with Wound Care Dr. Powers and Dr. Hancock of infectious disease. He had recently presented to [facility] for chills and fevers. He was admitted at that point in time for pnuemonia. He has a septic workup while at [facility] and was started on Vancomycin and Meropenem. His blood cultures resulted positive for Staph species. He had developed Atrial fibrillation with RVR and was subsequently transferred to [facility]. On transfer he was sent only on IV Zosyn and this was continued on his admission. Today the patient complains of left hip pain which is chronic and pain in his feet. He denies any chills. He has been afebrile and there were no events reported overnight. His wounds were undressed which revealed a large purulent ulcer on the dorsum of his right foot. Currently the patient denies any shortness of breath, nausea, vomiting, diarrhea, or chest pain OBJECTIVE PHYSICAL EXAMINATION: VITAL SIGNS: Please see below. GENERAL: Awake, alert, and oriented. Appears in no acute distress. Lying comfortably in bed. HEENT: Atraumatic, normocephalic. Eyes are nonicteric. Trachea is midline. CARDIOVASCULAR: Irregularly irregular rhythm. Tachycardic rate. No clicks rubs or murmurs RESPIRATORY: Clear vesicular breath sounds bilaterally. Slightly diminished in the bases. no wheezes, rhonchi, or rales ABDOMINAL: Soft, nondistended. Nontender. Normoactive bowel sounds EXTREMITIES: 2-3 + pitting edema in bilateral lower extremities. Left heel ulcer extending down to achilles tendon. Appears clean with regular borders. Right foot dorsum ulcer with purulence. No surrounding erythema. No calf tenderness NEUROLOGICAL: No focal neurological deficits PSYCHOLOGICAL: Mood and affect appear appropriate LABORATORY DATA, IMAGING STUDIES, MICROBIOLOGY: Please see below. Echocardiogram: Pending DVT prophylaxis ordered?: Mechanical ASSESSMENT AND PLAN: Patient is a 64 year old male with a history of chronic atrial fibrillation and non-healing lower extremity ulcers who presented to [facility] as a transfer from [facility] with Atrial fibrillation with RVR PROBLEMS: 1. Sepsis 2/2 Staph Spp bacteremia 2/2 lower extremity ulcers -Elevated WBC, tachycardia, and febrile. Patient has positive blood cultures for Staph at [facility]. He was previously reported to be on Vanc and Meropenem however on arrival to [facility] he was on Zosyn. -Sensitivities from [facility] are pending. Repeat blood cultures drawn at [facility]. Will continue Vancomycin and Zosyn for broad spectrum coverage -Procalcitonin pending -Will trend CRP -Wound care for Lower Extremity ulcerations -Wound culture and gram stain of right foot dorsal ulceration 2. Left Posterior Oblique Hematoma -Patient has a hematoma which from previous records appears to have been present since at least November according to previous medical records. -Hemoglobin has been stable. -Will hold anticoagulation for now 3. Atrial Fibrillation with RVR -Patient presented with Atrial fibrillation with RVR. He has chronic Atrial fibrillation. His RVR was likely secondary to increased sepsis from gram positive bacteremia. -Patient had been started on amiodarone at [facility]. He was on metoprolol outpatient -Currently he is not rate controlled. HR varying from 120-140. Will start Diltiazem drip. -Holding Anticoagulation. Will need to contact patients PCP to ascertain the chronicity of his retroperitoneal hematoma 3. Pneumonia -Patient had presented from [facility] with a diagnosis of pneumonia however his imaging demonstrated pleural effusions but no definite pneumonia 4. Diabetes Mellitus Type 2 -Consistent Carb diet -Sliding scale insulin coverage ACHS 5. Left Femoral Head Collapse/avascular necrosis -This is a chronic problem. The patient is aware. He will follow-up outpatient for management of this 6. DVT Prophylaxis -Mechanical DISPOSITION: Patients discharge is pending clinical improvement. Blood cultures pending. VS, I&O, 24H, Fishbone Vital Signs/I&O Vital Signs Date Time Temp Pulse Resp B/P (MAP) Pulse Ox O2 Delivery O2 Flow Rate FiO2 12/31/19 16:12 20 Nasal Cannula 3.0 12/31/19 16:00 97.0 89 143/80 (101) 93 I&O- Last 24 Hours up to 6 AM 12/31/19 05:59 Intake Total 300 ml Output Total 1460 ml Balance -1160 ml Laboratory Data 24H LABS Laboratory Tests 2 12/30/19 16:50: Bedside Glucose (Misc Panel) 442H 12/30/19 18:16: Prothrombin Time 23.4H, Prothromb Time International Ratio 2.11, Estimated Mean Plasma Glucose 157H, Hemoglobin A1c 7.1, Iron Level 98, Total Iron Binding Capacity 140L, Transferrin % Saturation 70.0H, Ferritin 410H 12/30/19 20:10: Bedside Glucose (Misc Panel) 421H 12/31/19 02:59: Nucleated Red Blood Cells % (auto) 0.2H, Anion Gap 3L, Glomerular Filtration Rate > 60.0, Calcium Level 7.9L 12/31/19 07:52: C-Reactive Protein, Quantitative 14.90H 12/31/19 11:22: Bedside Glucose (Misc Panel) 290H 12/31/19 11:47: Total Bilirubin 0.3, Direct Bilirubin < 0.1, Aspartate Amino Transf (AST/SGOT) 32, Alanine Aminotransferase (ALT/SGPT) 34, Alkaline Phosphatase 74, Total Creatine Kinase 306, Total Protein 6.3L, Albumin 1.9L, Albumin/Globulin Ratio 0.4 CBC/BMP Laboratory Tests 12/30/19 20:59 12/31/19 02:59 12/31/19 07:52 12/31/19 11:49 12/31/19 16:01 Microbiology Microbiology 12/31/19 Blood Culture, Received Pending 12/30/19 Blood Culture, Received Pending GME ATTESTATION GME ATTESTATION My faculty preceptor for this patient encounter was physically present during the encounter and was fully available. All aspects of the patient interview, examination, medical decision making process, and medical care plan development were reviewed and approved by the faculty preceptor. The faculty preceptor is aware and concurs with the plan as stated in the body of this note and will attest to such by his/her cosignature. ATTENDING NOTE PT WAS SEEN AND EXAMINED BY ME, AGREE WITH THE ABOVE ASSESSMENT AND PLAN. ADAM HILLMAN DO Dec 31, 2019 17:27 HOLDEN AHMADI MD Jan 03, 2020 14:16
[2019-12-31 20:00] VITALS: BP 129/82
[2019-12-31] MEDS: VANCOMYCIN HCL 750 MG, VIAL MATE ADAPTER 1 EACH in D5W 250 ML IV SCH (20:26)
[2019-12-31] MEDS: BACLOFEN 10 MG TAB PO SCH (20:27)
[2019-12-31] MEDS: LATANOPROST 0.005% OPHTH SOLN 2.5 ML OU SCH (20:28)
[2019-12-31] MEDS: VANCOMYCIN HCL 500 MG in D5W MINI-BAG PLUS 100 ML IV SCH (21:38)
[2020-01-01] VITALS: BP 137/79
[2020-01-01] MEDS: PIPERACILLIN/TAZOBACTAM SOD 3.375 GM in D5W MINI-BAG PLUS 50 ML IV SCH ×4 (00:32→17:49)
[2020-01-01 04:00] VITALS: BP 134/87
[2020-01-01] MEDS: SLF 3 ML SYR IV SCH ×3 (05:20→20:17)
[2020-01-01] MEDS: oxyCODONE 5MG TAB PO PRN ×3 (05:21→17:49)
[2020-01-01] MEDS: SALMETEROL DISKUS 50MCG INHALER (SEREVENT) INH SCH ×2 (07:25→18:37)
[2020-01-01 07:52] VITALS: BP 149/71
[2020-01-01] MEDS: LEVEMIR (INSULIN DETEMIR) 1 UNITS/0.01ML SC SCH ×2 (08:35→20:50)
[2020-01-01] MEDS: HumaLOG INSULIN (NovoLOG) PER UNIT SC SCH ×4 (08:36→20:49)
[2020-01-01] MEDS: GABAPENTIN 300 MG CAP PO SCH ×3 (08:38→20:17)
[2020-01-01] MEDS: VANCOMYCIN HCL 750 MG, VIAL MATE ADAPTER 1 EACH in D5W 250 ML IV SCH ×2 (08:38→20:17)
[2020-01-01] MEDS: PANTOPRAZOLE 40MG TAB (PROTONIX) PO SCH (08:38)
[2020-01-01] MEDS: DULoxetine 30 MG CAP (CYMBALTA) PO SCH (08:38)
[2020-01-01] MEDS: AMIODARONE 200 MG TAB (PACERONE) PO SCH ×2 (08:38→20:17)
[2020-01-01 08:57] LABS: HEP C VIRUS AB INDEX SOURCE PT 0.3 INDEX (0.0-0.8); HEPATITIS B SURFACE ANTIGEN NEGATIVE (NEGATIVE)
[2020-01-01] MEDS: VANCOMYCIN HCL 500 MG in D5W MINI-BAG PLUS 100 ML IV SCH ×2 (09:58→21:56)
[2020-01-01 10:14] LABS: BASO % 0.2 % (0.0-1.0); EOS % 0.2 % (0.0-3.0); HEMATOCRIT 33.3 % (42.0-52.0); HEMOGLOBIN 9.6 g/dl (13.5-17.5); LYMPH # 1.3 10^3/uL (1.5-5.0); LYMPH % 9.8 % (24.0-44.0); MEAN CORPUSCULAR HEMOGLOBIN 24.1 pg (27.0-33.0); MEAN CORPUSCULAR HGB CONC 28.8 g/dl (32.0-36.5); MEAN CORPUSCULAR VOLUME 83.5 fl (80.0-96.0); MONO # 0.9 10^3/uL (0.0-0.8); MONO % 6.8 % (0.0-5.0); NEUTROPHILS # 10.9 10^3/uL (1.5-8.5); PLATELET COUNT, AUTOMATED 369 10^3/uL (150-450); RED BLOOD COUNT 3.99 10^6/uL (4.30-6.10); WHITE BLOOD COUNT 13.2 10^3/uL (4.0-10.0)
[2020-01-01 10:34] LABS: ALBUMIN 2.2 GM/DL (3.2-5.2); ALT/SGPT 41 U/L (12-78); BILIRUBIN,TOTAL 0.4 MG/DL (0.2-1.0); BLOOD UREA NITROGEN 27 MG/DL (7-18); CALCIUM LEVEL 8.4 MG/DL (8.8-10.2); CARBON DIOXIDE LEVEL 31 MEQ/L (21-32); CHLORIDE LEVEL 104 MEQ/L (98-107); CREATININE FOR GFR 0.93 MG/DL (0.70-1.30); GLOMERULAR FILTRATION RATE > 60.0 (>49); GLUCOSE, FASTING 133 MG/DL (70-100); POTASSIUM SERUM 4.5 MEQ/L (3.5-5.1); SODIUM LEVEL 139 MEQ/L (136-145)
[2020-01-01] MEDS ORDERED: DIGOXIN INJ 0.5 MG/2 ML AMP (J1160) IV STA (10:57)
[2020-01-01] MEDS: diltiaZEM 125 MG in NS 100 ML IV SCH ×2 (11:06→20:16)
[2020-01-01 11:56] VITALS: BP 143/78
[2020-01-01 13:07] LABS: APPEARANCE, URINE CLEAR (CLEAR); BACTERIA, URINE AUTO NEGATIVE (NEGATIVE); BILIRUBIN, URINE AUTO NEGATIVE (NEGATIVE); BLOOD, URINE BLOOD 1+ (NEGATIVE); COLOR, URINE YELLOW (YELLOW); GLUCOSE, URINE (UA) AUTO 2+ mg/dL (NEGATIVE); KETONE, URINE AUTO NEGATIVE (NEGATIVE); LEUKOCYTE ESTERASE, URINE AUTO NEGATIVE (NEGATIVE); MUCUS, URINE SMALL (NEGATIVE); NITRITE, URINE AUTO NEGATIVE (NEGATIVE); PROTEIN, URINE AUTO 1+ mg/dL (NEGATIVE); RBC, URINE AUTO 5 /HPF (0-3); SPECIFIC GRAVITY URINE AUTO 1.017 (1.002-1.035); SQUAMOUS EPITHELIAL CELL UR AU 0 /HPF (0-6); UROBILINOGEN, URINE AUTO 0.2 mg/dL (0.0-2.0); WBC, URINE AUTO 4 /HPF (0-3)
[2020-01-01] MEDS ORDERED: AMIODARONE HCL 150 MG in IV 1 EA IV STA (13:51)
--- NOTE | 2020-01-01 14:35 | REP ---
RIGHT FOOT SERIES: FOUR VIEWS. HISTORY: Rule out osteomyelitis. Comparison right foot radiographs, November 12, 2019. FINDINGS: There is diffuse osteopenia. There is a moderate area of soft tissue swelling about the medial aspect of the 1st MTP joint. There is new lateral subluxation along the tarsometatarsal articulations of all five digits. There is some fragmentation at the 1st tarsometatarsal articulation. There is slight loss of the tarsal arch on the lateral film compared to the prior study. There is soft tissue irregularity and swelling dorsally over the midfoot on the lateral radiograph. A plantar heel spur is noted. Tibiotalar arthritis is seen. There are erosive changes involving the medial cortex of the medial cuneiform and the anteromedial cortex of the tarsal navicula, which appear to be unchanged from November 12, 2019 study as well. IMPRESSION: Progressive arthropathy at the tarsometatarsal articulations with lateral subluxation of all of the metatarsals. There is some loss of tarsal arch. This represents a change from the recent study of November 12, 2019. There are also acute-appearing cortical erosions in the medial cortex of the medial cuneiform and in the anteromedial cortex of the navicular bone. I cannot exclude osteomyelitis. The changes may all also reflect progressive neuropathic arthropathy. Electronically Signed by Arvind Al MD 01/01/2020 05:16 P
[2020-01-01] MEDS: MORPHINE 2 MG/ML 1ML VIAL (J2270) IV PRN ×2 (15:52→20:46)
[2020-01-01 16:00] VITALS: BP 113/67
--- NOTE | 2020-01-01 17:10 | CR ---
DATE OF CONSULTATION: REASON FOR CONSULTATION: Right foot ulceration. Aurelio Alex is a 64-year-old male who is known to me due to previous admissions with right foot infection. He was admitted on 12/30/2019 from [place] due to dizziness, fevers, and chills. He has Staphylococcus bacteremia with presumptive source from the wound. He has been started on antibiotics, and I was asked to evaluate the wounds and see if any surgery or debridement was necessary. PAST MEDICAL HISTORY: Significant for: 1. Chronic atrial fibrillation. 2. Charcot foot. 3. Insulin-dependent diabetes neuropathy. 4. History of right foot osteomyelitis. 5. History of peripheral vascular disease (PVD) with stent placement. 6. Coronary artery disease with stent placement. 7. Chronic hypertension. 8. Arthritis of the hip. 9. Sleep apnea. 10. History of melanoma. 11. Rotator cuff surgery. 12. First toe amputation. SOCIAL HISTORY: Positive for smoker. Lives at home. ALLERGIES: To tape. REVIEW OF SYSTEMS: He denies nausea, vomiting, fevers, or chill. Vital signs are reviewed. He has remained afebrile. Labs are reviewed. White blood cell count is 13.2, on admission it was 14. CRP is 14.9. Blood culture shows Staphylococcus aureus. Wound culture is pending. Lower extremity examination: On the left there is a superficial granular wound base on the posterior leg. On the right foot dorsal foot, there is a large open wound with largely granular wound base. There is no purulent drainage and only one tiny spot of necrotic tissue. There is some exposed bone. Most of this is covered with granulation tissue. ASSESSMENT: This is a 64 diabetic male with chronic osteomyelitis due to the right foot open wound with presumptive bacteremia secondary to this. PLAN: Wound debridement was performed using a dermal curette, including nonviable subcutaneous tissue and fascia. This was excisional in nature. Patient should have antibiotics directed from the culture. May consider infectious disease consultation. He has followed with Dr. Hancock in the past. If he is going to be here more than a few days, he should have teleconference with Dr. Powers, who is his primary wound care physician. At that time I do not see any urgent need for further surgical debridement, unless infection fails to improve. Wound orders per Dr. Powers. Thank you for the consultation.
--- NOTE | 2020-01-01 17:15 | IPNPDOC ---
Date Seen The patient was seen on 01/01/20. Progress Note SUBJECTIVE: Patient was seen and examined this morning. Currently he states he has pain which is chronic. He denies any shortness of breath or chest pain. There were no adverse events reported overnight. This morning the patient was noted to have increased ventricular rate of 160's sustained per telemetry monitoring. His diltiazem drip was increased to 10mg with little response in heart rate. He was then given digoxin 0.25 IV which did transiently decreased his ventricular rate to 130-150. The patient remained largery asymptomatic. Cardiology was consulted and the patient was given amiodarone IV . OBJECTIVE PHYSICAL EXAMINATION: VITAL SIGNS: Please see below. GENERAL: Awake, alert, and oriented. Appears in no acute distress. Lying comfortably in bed. HEENT: Atraumatic, normocephalic. Eyes are nonicteric. Trachea is midline. CARDIOVASCULAR: Irregularly irregular rhythm. Tachycardic rate. No clicks rubs or murmurs RESPIRATORY: Clear vesicular breath sounds bilaterally. Slightly diminished in the bases. no wheezes, rhonchi, or rales ABDOMINAL: Soft, nondistended. Nontender. Normoactive bowel sounds EXTREMITIES: 2-3 + pitting edema in bilateral lower extremities. Wounds on right foot and left Achilles currently bandaged NEUROLOGICAL: No focal neurological deficits. Resting tremor PSYCHOLOGICAL: Mood and affect appear appropriate LABORATORY DATA, IMAGING STUDIES, MICROBIOLOGY: Please see below. Echocardiogram: Pending DVT prophylaxis ordered?: Mechanical ASSESSMENT AND PLAN: Patient is a 64 year old male with a history of chronic atrial fibrillation and non-healing lower extremity ulcers who presented to [facility] as a transfer from [facility] with Atrial fibrillation with RVR PROBLEMS: 1. Sepsis 2/2 Staph Spp bacteremia 2/2 lower extremity ulcers -Elevated WBC, tachycardia, and febrile. Patient has positive blood cultures for Staph at [place]. He was previously reported to be on Vanc and Meropenem however on arrival to [facility] he was on Zosyn. -Sensitivities from [place] are pending. -Repeat blood cultures at [facility] were positive for gram positive Staph spp -Will continue Vancomycin and Zosyn for broad spectrum coverage -Procalcitonin 1.84. Will repeat tomorrow -CRP 14.90. Will repeat tomorrow -Wound care for Lower Extremity ulcerations -Wound culture and gram stain of right foot dorsal ulceration -Dr. Romano to see patient for potential debridement of lower extremity ulcers. Assistance is appreciated 2. Atrial Fibrillation with RVR -Patient presented from [facility] in atrial fibrillation with RVR. He has a history of chronic atrial fibrillation. He was started on oral amiodarone at [place]. Yesterday he was started on a diltiazem drip as he had remained with a ventricular rate of 130-140. This morning his ventricular rate was 160's and sustained. He was asymptomatic and BP remained stable. The drip was increased to 10mg. There was little response in BP. The patient was given Digoxin 0.25 IV with a slight decrease in ventricular rate to 130-140. Cardiology was contacted with recommendations to give IV amiodarone 150. The patients atrial fibrillation w/ RVR is likely secondary to his gram positive bacteremia and will likely not fully resolve until his acute infectious process is cleared -Cardiology has been consulted and will see patient. Recommendations and assistance is appreciated -Patient is on Eliquis outpatient. Unfortunately he had developed a retroperitoneal hematoma and his anticoagulation is on hold. 3. Left Posterior Oblique Hematoma -Patient has a hematoma which from previous records appears to have been present since at least November according to previous medical records. -Hemoglobin has been stable. -Will hold anticoagulation for now -Given his Staph spp bacteremia there is concern that the hematoma is infected. The patient has not been febrile and WBC is trending down. Will follow-up blood cultures however patient may need IR drainage of his retroperitoneal hematoma 4. Pneumonia -Patient had presented from [place] with a diagnosis of pneumonia however his imaging demonstrated pleural effusions but no definite pneumonia 5. Diabetes Mellitus Type 2 -Consistent Carb diet -Sliding scale insulin coverage ACHS 6. Left Femoral Head Collapse/avascular necrosis -This is a chronic problem. The patient is aware. He will follow-up outpatient for management of this 7. DVT Prophylaxis -Mechanical VS, I&O, 24H, Fishbone Vital Signs/I&O Vital Signs Date Time Temp Pulse Resp B/P (MAP) Pulse Ox O2 Delivery O2 Flow Rate FiO2 01/01/20 16:02 18 Nasal Cannula 3.0 01/01/20 16:00 97.3 106 113/67 (82) 95 I&O- Last 24 Hours up to 6 AM 01/01/20 06:00 Intake Total 1560 ml Output Total 2950 ml Balance -1390 ml Laboratory Data 24H LABS Laboratory Tests 2 12/31/19 17:05: Bedside Glucose (Misc Panel) 304H 12/31/19 20:07: Bedside Glucose (Misc Panel) 311H 01/01/20 08:15: Bedside Glucose (Misc Panel) 127H 01/01/20 09:37: Immature Granulocyte % (Auto) 1.0, Neutrophils (%) (Auto) 82.0H, Lymphocytes (%) (Auto) 9.8L, Monocytes (%) (Auto) 6.8H, Eosinophils (%) (Auto) 0.2, Basophils (%) (Auto) 0.2, Neutrophils # (Auto) 10.9H, Lymphocytes # (Auto) 1.3L, Monocytes # (Auto) 0.9H, Eosinophils # (Auto) 0.0, Basophils # (Auto) 0.0, Nucleated Red Blood Cells % (auto) 0.2H, Anion Gap 4L, Glomerular Filtration Rate > 60.0, Calcium Level 8.4L, Total Bilirubin 0.4, Aspartate Amino Transf (AST/SGOT) 35, Alanine Aminotransferase (ALT/SGPT) 41, Alkaline Phosphatase 74, Total Protein 7.0, Albumin 2.2L, Albumin/Globulin Ratio 0.5 01/01/20 11:14: Urine Color YELLOW, Urine Appearance CLEAR, Urine pH 5.0, Urine Specific [place] 1.017, Urine Protein 1+H, Urine Glucose (Auto)(UA) 2+H, Urine Ketones (Auto) NEGATIVE, Urine Blood 1+H, Urine Nitrite NEGATIVE, Urine Bilirubin NEGATIVE, Urine Urobilinogen 0.2, Urine Leukocyte Esterase (Auto) NEGATIVE, Urine WBC (Auto) 4H, Urine RBC (Auto) 5H, Urine Hyaline Casts (Auto) 0, Urine Bacteria (Auto) NEGATIVE, Urine Squamous Epithelial Cells 0, Urine Mucus (Auto) SMALL, U rine Sperm (Auto) 01/01/20 12:26: Bedside Glucose (Misc Panel) 154H CBC/BMP Laboratory Tests 01/01/20 09:37 Microbiology Microbiology 01/01/20 Blood Culture, Received Pending 12/31/19 Gram Stain - Final, Resulted 12/31/19 Wound Culture, Resulted Pending 12/31/19 Blood Culture - Preliminary, Resulted 12/30/19 Blood Culture - Preliminary, Resulted Staphylococcus Species GME ATTESTATION GME ATTESTATION My faculty preceptor for this patient encounter was physically present during the encounter and was fully available. All aspects of the patient interview, examination, medical decision making process, and medical care plan development were reviewed and approved by the faculty preceptor. The faculty preceptor is aware and concurs with the plan as stated in the body of this note and will attest to such by his/her cosignature. ATTENDING NOTE PT WAS SEEN AND EXAMINED BY ME, AGREE WITH THE ABOVE ASSESSMENT AND PLAN. ADAM HILLMAN DO Jan 01, 2020 17:15 HOLDEN AHMADI MD Jan 03, 2020 14:19
[2020-01-01 20:00] VITALS: BP 145/80
[2020-01-01] MEDS: BACLOFEN 10 MG TAB PO SCH (20:17)
[2020-01-01] MEDS: LATANOPROST 0.005% OPHTH SOLN 2.5 ML OU SCH (20:17)
[2020-01-01] MEDS: NYSTATIN 100,000 UNITS/GM TOPICAL PWD 15 GM TOP SCH (21:00)
[2020-01-02] VITALS: BP 119/79
[2020-01-02] MEDS: PIPERACILLIN/TAZOBACTAM SOD 3.375 GM in D5W MINI-BAG PLUS 50 ML IV SCH ×4 (00:15→17:19)
[2020-01-02 04:00] VITALS: BP 161/79
[2020-01-02] MEDS: SLF 3 ML SYR IV SCH ×3 (05:49→21:05)
[2020-01-02] MEDS: oxyCODONE 5MG TAB PO PRN ×2 (06:08→17:20)
[2020-01-02] MEDS: SALMETEROL DISKUS 50MCG INHALER (SEREVENT) INH SCH ×2 (07:07→20:00)
[2020-01-02] MEDS: HumaLOG INSULIN (NovoLOG) PER UNIT SC SCH ×4 (07:30→21:03)
[2020-01-02 07:35] LABS: HEMATOCRIT 34.2 % (42.0-52.0); HEMOGLOBIN 9.8 g/dl (13.5-17.5); MEAN CORPUSCULAR HEMOGLOBIN 23.6 pg (27.0-33.0); MEAN CORPUSCULAR HGB CONC 28.7 g/dl (32.0-36.5); MEAN CORPUSCULAR VOLUME 82.4 fl (80.0-96.0); PLATELET COUNT, AUTOMATED 341 10^3/uL (150-450); RED BLOOD COUNT 4.15 10^6/uL (4.30-6.10); WHITE BLOOD COUNT 13.8 10^3/uL (4.0-10.0)
[2020-01-02 07:56] LABS: BLOOD UREA NITROGEN 19 MG/DL (7-18); C REACTIVE PROTEIN QUANTITATIV 8.99 MG/DL (0.00-0.30); CALCIUM LEVEL 8.5 MG/DL (8.8-10.2); CARBON DIOXIDE LEVEL 30 MEQ/L (21-32); CHLORIDE LEVEL 103 MEQ/L (98-107); CREATININE FOR GFR 0.72 MG/DL (0.70-1.30); GLOMERULAR FILTRATION RATE > 60.0 (>49); GLUCOSE, FASTING 56 MG/DL (70-100); LYMPHOCYTES 12 % (16-44); MONOCYTES 5 % (0-5); NEUTROPHILS 83 % (28-66); POTASSIUM SERUM 4.7 MEQ/L (3.5-5.1); SODIUM LEVEL 137 MEQ/L (136-145)
[2020-01-02 07:57] LABS: PLATELET ESTIMATE NORMAL (NORMAL)
[2020-01-02 08:06] VITALS: BP 140/74
[2020-01-02] MEDS: DULoxetine 30 MG CAP (CYMBALTA) PO SCH (09:00)
[2020-01-02] MEDS ORDERED: DIGOXIN 0.125 MG TAB PO SCH (09:00)
[2020-01-02] MEDS: GABAPENTIN 300 MG CAP PO SCH ×3 (09:00→20:50)
[2020-01-02] MEDS: PANTOPRAZOLE 40MG TAB (PROTONIX) PO SCH (09:01)
[2020-01-02] MEDS: AMIODARONE 200 MG TAB (PACERONE) PO SCH ×2 (09:01→20:50)
[2020-01-02] MEDS: LEVEMIR (INSULIN DETEMIR) 1 UNITS/0.01ML SC SCH ×2 (09:02→21:02)
[2020-01-02] MEDS: NYSTATIN 100,000 UNITS/GM TOPICAL PWD 15 GM TOP SCH ×2 (09:02→21:05)
[2020-01-02] MEDS: VANCOMYCIN HCL 750 MG, VIAL MATE ADAPTER 1 EACH in D5W 250 ML IV SCH ×2 (09:03→20:48)
[2020-01-02] MEDS: diltiaZEM 125 MG in NS 100 ML IV SCH ×2 (09:31→21:04)
--- NOTE | 2020-01-02 10:52 | ECGEPIP ---
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
[2020-01-02] MEDS: VANCOMYCIN HCL 500 MG in D5W MINI-BAG PLUS 100 ML IV SCH ×2 (11:01→22:38)
[2020-01-02 12:00] VITALS: BP 151/69
--- NOTE | 2020-01-02 12:07 | IPNPDOC ---
Date Seen The patient was seen on 01/02/20. Progress Note SUBJECTIVE: Patient was seen and examined this morning. He currently has no new complaints. He states that his pain is better today. He does remain in atrial fibrillation. His ventricular rate has improved however he is still fast. He has been seen by Podiatry with bedside debridement. Wound Care Consult with Dr. Powers is pending. There have been no adverse events reported overnight OBJECTIVE PHYSICAL EXAMINATION: VITAL SIGNS: Please see below. GENERAL: Awake, alert, and oriented. Appears in no acute distress. Lying comfortably in bed. HEENT: Atraumatic, normocephalic. Eyes are nonicteric. Trachea is midline. CARDIOVASCULAR: Irregularly irregular rhythm. Tachycardic rate. No clicks rubs or murmurs RESPIRATORY: Clear vesicular breath sounds bilaterally. Slightly diminished in the bases. no wheezes, rhonchi, or rales ABDOMINAL: Soft, nondistended. Nontender. Normoactive bowel sounds EXTREMITIES: 2-3 + pitting edema in bilateral lower extremities. Wounds on right foot and left Achilles currently bandaged NEUROLOGICAL: No focal neurological deficits. Resting tremor PSYCHOLOGICAL: Mood and affect appear appropriate LABORATORY DATA, IMAGING STUDIES, MICROBIOLOGY: Please see below. Echocardiogram: Pending DVT prophylaxis ordered?: Mechanical ASSESSMENT AND PLAN: Patient is a 64 year old male with a history of chronic atrial fibrillation and non-healing lower extremity ulcers who presented to [facility] as a transfer from [facility] with Atrial fibrillation with RVR PROBLEMS: 1. Sepsis 2/2 Staph Spp bacteremia 2/2 lower extremity ulcers -Elevated WBC, tachycardia, and febrile. Patient has positive blood cultures for Staph at [place]. He was previously reported to be on Vanc and Meropenem however on arrival to [facility] he was on Zosyn. -Sensitivities from [place] are pending. -[facility] blood cultures positive for Staphylococcus aureus. Awaiting s ensitivities. -Will continue Vancomycin and Zosyn for broad spectrum coverage -Procalcitonin 1.84. Repeat pending -CRP trending down. Today 8.99 -Wound care for Lower Extremity ulcerations -Wound culture and gram stain of right foot dorsal ulceration positive for S. aureus -Bedside debridement yesterday per Dr. Romano. Assistance appreciated -Advanced Wound Care consult with Dr. Powers is pending -Infectious Disease consult given gram positive bacteremia -Transthoracic echocardiogram is pending. Patient will need SHELBI during hospitalization 2. Atrial Fibrillation with RVR -Patient has chronic Atrial fibrillation. His ventricular rate was sustained at 160's yesterday. He received IV amiodarone. Today he is continued on PO amiodarone, diltiazem drip at 10ml/hr, and digoxin 0.125 daily -Cardiology has been consulted. Awaiting recommendations. Assistance is appreciated -Patient is on Eliquis outpatient. Unfortunately he had developed a retroperitoneal hematoma and his anticoagulation is on hold. 3. Left Posterior Oblique Hematoma -Patient has a hematoma which from previous records appears to have been present since at least November according to previous medical records. -Hemoglobin has been stable. -Will hold anticoagulation for now -Given his Staph aureus bacteremia there is concern that the hematoma is infected. The patient has not been febrile and WBC is trending down. Will follow-up blood cultures however patient may need IR drainage of his retro peritoneal hematoma 4. Pneumonia -Patient had presented from [place] with a diagnosis of pneumonia however his imaging demonstrated pleural effusions but no definite pneumonia 5. Diabetes Mellitus Type 2 -Consistent Carb diet -Sliding scale insulin coverage ACHS 6. Left Femoral Head Collapse/avascular necrosis -This is a chronic problem. The patient is aware. He will follow-up outpati ent for management of this 7. DVT Prophylaxis -Mechanical VS, I&O, 24H, Fishbone Vital Signs/I&O Vital Signs Date Time Temp Pulse Resp B/P (MAP) Pulse Ox O2 Delivery O2 Flow Rate FiO2 01/02/20 11:03 122 01/02/20 09:31 140/74 01/02/20 08:06 97.3 22 93 Nasal Cannula 3.0 I&O- Last 24 Hours up to 6 AM 01/02/20 06:00 Intake Total 1430 ml Output Total 1975 ml Balance -545 ml Laboratory Data 24H LABS Laboratory Tests 2 01/01/20 12:26: Bedside Glucose (Misc Panel) 154H 01/01/20 17:17: Bedside Glucose (Misc Panel) 92 01/01/20 20:48: Bedside Glucose (Misc Panel) 71L 01/02/20 06:58: 01/02/20 07:04: Neutrophils (%) (Auto) , Nucleated Red Blood Cells % (auto) 0.0, Neutrophils 83H, Lymphocytes (Manual) 12L, Monocytes (Manual) 5, Red Blood Cell Morphology NORMAL, Platelet Estimate NORMAL, Anion Gap 4L, Glomerular Filtration Rate > 60.0, Calcium Level 8.5L, C-Reactive Protein, Quantitative 8.99H, Vancomycin Level Trough 18.4 CBC/BMP Laboratory Tests 01/02/20 07:04 Microbiology Microbiology 01/01/20 Blood Culture - Preliminary, Resulted No growth after 24 hours . All specim... 12/31/19 Gram Stain - Final, Resulted 12/31/19 Wound Culture - Preliminary, Resulted Staphylococcus Aureus 12/31/19 Blood Culture - Preliminary, Resulted Staphylococcus Aureus 12/30/19 Blood Culture - Final, Complete Staphylococcus Aureus GME ATTESTATION GME ATTESTATION My faculty preceptor for this patient encounter was physically present during the encounter and was fully available. All aspects of the patient interview, examination, medical decision making process, and medical care plan development were reviewed and approved by the faculty preceptor. The faculty preceptor is aware and concurs with the plan as stated in the body of this note and will attest to such by his/her cosignature. ATTENDING NOTE PT WAS SEEN AND EXAMINED BY ME, AGREE WITH THE ABOVE ASSESSMENT AND PLAN. ADAM HLILMAN DO Jan 02, 2020 12:07 HOLDEN AHMADI MD Jan 03, 2020 14:21
--- NOTE | 2020-01-02 14:51 | CR ---
DATE OF CONSULTATION: 01/02/2020 Mr. Johnson is a 64-year-old male with a past medical history of atrial fibrillation, coronary artery disease (CAD) and osteomyelitis of the foot, who presented as a transfer from [facility] with weakness, dizziness, and recent fall, found to have bilateral pleural effusions and a left posterior oblique fluid collection concerning for hematoma. The patient was admitted on 12/30/2019 and has been treated empirically for sepsis with intravenous (IV) vancomycin and Zosyn. Cardiology service was called, as the patient went into atrial fibrillation with rapid ventricular response and despite Cardizem, Amiodarone and Digoxin has continued in this rhythm. Today the patient reports that throughout this time he has felt well. He has been admitted to [facility] frequently over the past 6 months for various issues, including weakness and infection of his bilateral lower extremity wounds. On this presentation, he reports that for months now he has had a slight tremor, which he states is present at all times and does not go away. In addition, he has felt more deconditioned in the fact that he is unable to get around, which he thinks is more likely due to a broken hip on the left side that he is unable to get replaced at this time. He has also been following with Dr. Powers and Dr. Romano for his wounds, which he reports are in the healing stages. He denies any shortness of breath or chest pain nor any palpitations at this time. PAST MEDICAL HISTORY: Significant for: 1. CAD, status post one stent in 2000, placed at [facility]. 2. Chronic nonvalvular atrial fibrillation. He is being followed by Dr. Grullon. [facility] 3. Charcot foot. 4. Insulin-dependent diabetes mellitus with neuropathy. 5. History of right foot osteomyelitis. 6. Peripheral arterial disease with four stents placed in his lower extremities. 7. Dyslipidemia. 8. Chronic hypertension. 9. Osteoarthritis of the hip. 10. Obstructive sleep apnea, noncompliant with continuous positive airway pressure (CPAP). 11. History of melanoma. PAST SURGICAL HISTORY: 1. Rotator cuff surgery. 2. Neck surgery. 3. Left first toe amputation. SOCIAL HISTORY: He is a current smoker. He smokes about half pack per day, and he has been smoking for about 50 years. He lives at home with his . He has home health. He denies any alcohol use. FAMILY HISTORY: Significant for cancer in both of her parents. ALLERGIES: He is allergic to tape. HOME MEDICATIONS: - amlodipine 10 mg daily - Eliquis 5 mg twice a day - aspirin 81 mg at bedtime - atorvastatin 20 mg daily - baclofen 10 mg at bedtime - duloxetine 60 mg daily - fentanyl patch topical every 3 days, apply to the stomach - gabapentin 600 mg three times a day - glipizide 10 mg daily - Levemir insulin 60 units twice a day - Humulin insulin 25 units every morning and 13 units every evening - lisinopril 5 mg daily - metformin 1000 mg by mouth twice a day - metoprolol 25 mg by mouth twice a day - midodrine 5 mg by mouth three times a day - niacin 500 mg at bedtime - oxycodone 10 mg four times a day as needed for pain - pantoprazole 40 mg daily - pravastatin 20 mg by mouth at bedtime - salmeterol 50 mcg twice a day inhaled PHYSICAL EXAMINATION: VITAL SIGNS: At t his time, temperature is 97.3, pulse currently is 122, ranging anywhere from 100-120s, respiratory rate is 22, blood pressure 140/74, pulse oximetry 93% on 3 liters nasal cannula. I reviewed his telemetry, which showed continued atrial fibrillation with rapid ventricular response (RVR) with ventricular rate in the 150s with no other abnormalities. Intake and output: He is net positive 525. He put out about 3000 mL of urine yesterday with one bowel movement. GENERAL: He is lying in bed. He is calm, cooperative in no acute distress, very obviously having tremors. Appears stated age. HEENT: His pupils are equally round and reactive to light. His extraocular movements are intact. His mucous membranes are moist. NECK: Supple with no thyromegaly, no lymphadenopathy. CHEST: He is Clear to auscultation bilaterally with no adventitious breath sounds appreciated. CARDIOVASCULAR: He is irregularly irregular with no discernible murmurs, rubs, or gallops but difficult to determine due to the rapidity of his heart rate. ABDOMEN: Soft and nontender to palpation in all four quadrants. No masses and no organomegaly. He does have positive bowel sounds. Lower extremities are wrapped bilaterally status post procedure yesterday. No discernible clubbing, cyanosis, or edema is observed. NEUROLOGIC: The patient has a continuous tremor, which is not relieved with movement or intention. He has positive asterixis. PSYCHIATRIC: He is awake, alert, oriented times three. Normal mood and normal affect. SKIN: He has no new rashes or ulcers. LABORATORY DATA: The patient had this morning a white blood cell count of 13.8, hemoglobin of 9.8, hematocrit of 34.2, and a platelet count of 341. Chemistries: He had a sodium of 137, potassium of 4.7, BUN of 19 and a creatinine of 0.72. His most recent CRP trended down to 8.9 from 14.9. His liver enzymes: AST 35, ALT 41, and alkaline phosphatase 74. A procalcitonin is pending. Total protein is 7. Iron studies: His iron was 98, TIBC was 140, ferritin is 410. He did have a urinalysis done, which was relatively normal. Hepatitis panel and HIV panel were both negative. Microbiology: He did have a blood culture on December 29, which grew Staphylococcus aureus times two as well as a Gram stain of his wound culture done yesterday, on December 30, which also grew Staphylococcus aureus. IMAGING: The patient had a CT abdomen, which showed extensive left retroperitoneal and left pelvic sidewall hematoma, which had improved since the last exam. In addition, he has small bilateral pleural effusion, new on the right and increased on the left, increased bibasilar presumed atelectasis, particularly in the posterior aspect of the lower lobes. Superimposed pneumonia is possible but considered less likely. Coronary and aortic atherosclerosis is noted with calcifications along the aortic valve and the mitral valve annulus. In addition, the patient had a foot x-ray, which showed progressive arthropathy at the tarsometatarsal articulations with lateral subluxation of the metatarsals. The patient's last echocardiogram was done on 11/13/[address] Hernandez, which showed no vegetations. Moderate focal thickening and calcification of the aortic valve, reduction of aortic cusp mobility, aortic stenosis but no aortic regurgitation. He also had trace mitral regurgitation but no mitral stenosis. He has grade 2 left ventricular diastolic dysfunction, normal regional left ventricle wall motion and wall thickening. His ejection fraction was not estimated on that echocardiogram. ASSESSMENT: This is a 64-year-old male with history of coronary artery disease (CAD) and nonvalvular atrial fibrillation, who is now admitted for sepsis secondary to foot infection and now bacteremia, found to have Staphylococcus aureus in his blood with atrial fibrillation with rapid ventricular response (RVR), status post oral amiodarone, Cardizem drip, and oral digoxin 0.125 mg twice a day by mouth. PLAN: At this time, the patient's heart rate has come down and is in the 110s. I have written for him to have the complete loading dose of 1,000mg digoxin over the next 24 hours and will continue Amiodarone 400mg BID. We can also continue the Cardizem drip at 10cc/hr for now. His cardiac function is essentially normal, therefore no contraindication to Cardizem. I have also ordered 81mg PO ASA daily for his CAD and subcutaneous heparin for DVT prophylaxis. I have ordered a TSH as well. At this time we do feel that the atrial fibrillation is secondary to his sepsis, and the treatment of the sepsis would likely improve his cardiovascular status. We will make no medication changes at this time but will continue to monitor him closely. Feel free to call with any questions. MEEK
[2020-01-02] MEDS: MORPHINE 2 MG/ML 1ML VIAL (J2270) IV PRN (14:55)
[2020-01-02 15:36] VITALS: BP 138/75
[2020-01-02] MEDS: DIGOXIN INJ 0.5 MG/2 ML AMP (J1160) IV SCH (18:02)
[2020-01-02 20:00] VITALS: BP 137/89
[2020-01-02] MEDS: ASPIRIN 81 MG ENTERIC TAB PO SCH (20:50)
[2020-01-02] MEDS: BACLOFEN 10 MG TAB PO SCH (20:50)
[2020-01-02] MEDS: HEPARIN SOD (PORCINE) 5000UNITS/ML VIAL (J1644 PER 1000UNITS) SQ SCH (21:03)
[2020-01-02] MEDS: LATANOPROST 0.005% OPHTH SOLN 2.5 ML OU SCH (22:38)
[2020-01-03] VITALS (7 sets, daily range): BP systolic 128–166; BP diastolic 59–87
--- NOTE | 2020-01-03 00:08 | ECHO ---
DATE OF PROCEDURE: 01/01/2020 DATE OF : 1955 AGE: 64 REFERRING PROVIDER: Dr. Juan Pablo Tavarez PATIENT LOCATION: Room 3227 REASON FOR THE STUDY: Sepsis, atrial fibrillation. 2D MEASUREMENTS: IVS: 1.2 cm LV: 5.1 cm LVPW: 1.1 cm LA: 4.4 cm Aorta: 3.4 cm IVC: 2.4 cm DOPPLER MEASUREMENTS: Peak velocity across the aortic valve: 2.2 meters per second Peak velocity across the LVOT: 0.87 meters per second Peak gradient across the aortic valve: 20 mmHg Mean gradient across the aortic valve: 15 mmHg Maximum tricuspid valve velocity: 3.1 meters per second 2D COMMENTS: 1. Normal left ventricular size, wall thickness, and normal global left ventricular systolic function. The estimated left ventricular systolic ejection fraction is 60-65%. 2. Mildly dilated left atrium. The right atrium also appeared to be mildly enlarged. Normal right ventricle noted in limited views. 3. The atrial septum appeared to be normal without evidence of defect or shunt. 4. Normal aortic root. 5. Trace pericardial effusion was noted, no evidence of cardiac tamponade. 6. Mildly calcified aortic valve with minimal restricted leaflet motion. Mildly calcified mitral annulus with normal anterior mitral valve leaflet motion. Normal tricuspid valve. The pulmonic valve and proximal pulmonary artery branches were not well visualized. 7. The inferior vena cava was dilated, central venous pressure is most likely elevated. DOPPLER: It detects mild mitral regurgitation, mild tricuspid regurgitation. The calculated pulmonary artery systolic pressure varies between 40-50 mmHg. Assessment of the left ventricular diastolic function was limited in view of the underlying atrial fibrillation. IMPRESSION: 1. Normal global left ventricular systolic function. Assessment of the left ventricular diastolic function was limited in view of the underlying atrial fibrillation. 2. Aortic valve sclerosis with mild aortic stenosis but no aortic regurgitation. 3. Mitral annulus calcification with a mildly enlarged left atrium and mild mitral regurgitation. 4. Mild tricuspid regurgitation with probably moderate pulmonary hypertension. The right atrium also appeared to be mildly enlarged. 5. Trace pericardial effusion, no evidence of cardiac tamponade. 6. This was compared with prior echocardiogram on 11/13/2019, no remarkable changes but then the patient was in normal sinus rhythm. [facility]
[2020-01-03] MEDS: DIGOXIN INJ 0.5 MG/2 ML AMP (J1160) IV SCH ×3 (00:16→11:39)
[2020-01-03] MEDS: PIPERACILLIN/TAZOBACTAM SOD 3.375 GM in D5W MINI-BAG PLUS 50 ML IV SCH ×2 (00:17→05:42)
[2020-01-03 05:26] LABS: BASO % 0.1 % (0.0-1.0); EOS # 0.1 10^3/uL (0.0-0.5); EOS % 0.8 % (0.0-3.0); HEMOGLOBIN 9.7 g/dl (13.5-17.5); LYMPH # 1.4 10^3/uL (1.5-5.0); LYMPH % 8.9 % (24.0-44.0); MEAN CORPUSCULAR HEMOGLOBIN 24.1 pg (27.0-33.0); MEAN CORPUSCULAR HGB CONC 29.4 g/dl (32.0-36.5); MEAN CORPUSCULAR VOLUME 82.1 fl (80.0-96.0); MONO # 1.1 10^3/uL (0.0-0.8); MONO % 6.8 % (0.0-5.0); NEUTROPHILS # 13.1 10^3/uL (1.5-8.5); NEUTROPHILS % 82.5 % (36.0-66.0); PLATELET COUNT, AUTOMATED 373 10^3/uL (150-450); RED BLOOD COUNT 4.02 10^6/uL (4.30-6.10); WHITE BLOOD COUNT 15.9 10^3/uL (4.0-10.0)
[2020-01-03 05:47] LABS: BLOOD UREA NITROGEN 15 MG/DL (7-18); CALCIUM LEVEL 8.4 MG/DL (8.8-10.2); CARBON DIOXIDE LEVEL 32 MEQ/L (21-32); CHLORIDE LEVEL 102 MEQ/L (98-107); CREATININE FOR GFR 0.81 MG/DL (0.70-1.30); GLOMERULAR FILTRATION RATE > 60.0 (>49); GLUCOSE, FASTING 104 MG/DL (70-100); POTASSIUM SERUM 4.6 MEQ/L (3.5-5.1); SODIUM LEVEL 138 MEQ/L (136-145)
[2020-01-03] MEDS: SLF 3 ML SYR IV SCH ×3 (05:50→20:20)
[2020-01-03] MEDS: HumaLOG INSULIN (NovoLOG) PER UNIT SC SCH ×4 (07:30→21:05)
[2020-01-03] MEDS ORDERED: FUROSEMIDE 20MG/2ML VIAL (J1940) IV ONE (08:00)
[2020-01-03] MEDS: SALMETEROL DISKUS 50MCG INHALER (SEREVENT) INH SCH ×2 (08:25→20:09)
[2020-01-03] MEDS: VANCOMYCIN HCL 750 MG, VIAL MATE ADAPTER 1 EACH in D5W 250 ML IV SCH (08:48)
[2020-01-03] MEDS: LEVEMIR (INSULIN DETEMIR) 1 UNITS/0.01ML SC SCH ×2 (08:49→21:05)
[2020-01-03] MEDS: AMIODARONE 200 MG TAB (PACERONE) PO SCH ×2 (08:50→21:02)
[2020-01-03] MEDS: PANTOPRAZOLE 40MG TAB (PROTONIX) PO SCH (08:50)
[2020-01-03] MEDS: DULoxetine 30 MG CAP (CYMBALTA) PO SCH (08:50)
[2020-01-03] MEDS: GABAPENTIN 300 MG CAP PO SCH ×3 (08:50→21:02)
[2020-01-03] MEDS: HEPARIN SOD (PORCINE) 5000UNITS/ML VIAL (J1644 PER 1000UNITS) SQ SCH ×2 (08:51→21:06)
[2020-01-03] MEDS: FENTANYL REMOVAL DOCUMENTATION MISC XX SCH (08:52)
[2020-01-03] MEDS: fentaNYL 100 MCG/HR PATCH TOP SCH (08:53)
[2020-01-03] MEDS: NYSTATIN 100,000 UNITS/GM TOPICAL PWD 15 GM TOP SCH ×2 (08:53→21:07)
[2020-01-03] MEDS: NAFCILLIN SOD 2 GM in D5W MINI-BAG PLUS 50 ML IV SCH ×4 (11:38→23:38)
--- NOTE | 2020-01-03 13:23 | IPN ---
DATE: 01/03/2020 Mr. Alex was seen and examined at the bedside this morning. He states that he is feeling much better. I am observing that his tremors have gone somewhat better overnight. His heart rate came down quite nicely overnight and he is in the 80s this morning. He is still in atrial fibrillation. He denies any chest pain or shortness of breath. He does have a lot of questions about what he should be doing when he gets discharged so that he does not get re-admitted again. Otherwise, he has no complaints and there were no issues reported from overnight. Objectively, his vitals are temperature of 97.9, pulse 82 (irregular), respiratory rate of 19, blood pressure of 149/67, pulse oximetry is 99% on 3 liters nasal cannula. He is a net positive balance of 150. He put out almost 925 mL yesterday, and his weight is down to 101.5 kg. Generally, he is lying in bed. He is calm, cooperative, no acute distress, and he appears stated age. HEENT Exam: His pupils are equally round and reactive to light, extraocular movements are intact and his mucous membranes are moist. Neck is supple with no thyromegaly and no lymphadenopathy. Chest: He is Clear to auscultation bilaterally with no adventitious breath sounds appreciated. Cardiovascular: He is irregularly irregular with no murmurs, rubs, or gallops. Abdomen: Soft and nontender to palpation in all four quadrants. No masses or organomegaly. He does have positive bowel sounds. Lower extremities are wrapped bilaterally in bandages status post procedure. No discernible clubbing, cyanosis, or edema. Neurologic: His tremors have improved and he has no focal deficit. Psychiatric: He is awake, alert and oriented times three. Normal mood and normal affect. Skin: He has no new rashes or ulcers. Labs today, hematology - his white blood cell count is up 15.9 from 13.8, hemoglobin is 9.7, hematocrit 33, and platelet count is 373. On chemistries, his sodium is 138, potassium is 4.6, carbon dioxide is 32, BUN is 15 and his creatinine is 0.81. Otherwise, his labs are within normal limits. He did grow Staphylococcus aureus in his wound and his blood cultures for which he is now nafcillin. ASSESSMENT: This is a 64-year-old male with a history of CAD and nonvalvular atrial fibrillation (AFib) who is now admitted for sepsis secondary to foot infection and now bacteremia found to have Staphylococcus aureus in his blood, status post AFib with rapid ventricular response (RVR). PLAN: At this time, he has completed the loading dose of digoxin of 1000 mg over 24 hours. Tomorrow, we will restart his 0.125 mg of oral digoxin daily. I have also switched his Cardizem drip to oral Cardizem 30 mg every 8 hours. He seems to be doing well. We will continue his daily aspirin and will monitor his status. 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 His thyroid-stimulating hormone (TSH) that I checked yesterday was found to be normal of 0.723. No further medication changes. Will continue to follow this patient and feel free to call with any questions. MEEK
--- NOTE | 2020-01-03 15:05 | IPNPDOC ---
Date Seen The patient was seen on 01/03/20. Progress Note SUBJECTIVE: Patient was seen and examined this morning. There have been no adverse events reported overnight. He continues to be in atrial fibrillation although his ventricular rate has been adequately controlled. He denies any significant worsening in pain. He denies any pain in his back or flank. He was examined today by myself, Dr. Romano, and Dr. Hancock. Dr. Powers was present via Telemedicine. The patients wounds were examined. His right foot wound was examined at bedside and did express purulent material. His cultures have returned positive for MSSA this morning. OBJECTIVE PHYSICAL EXAMINATION: VITAL SIGNS: Please see below. GENERAL: Awake, alert, and oriented. Appears in no acute distress. Lying comfortably in bed. HEENT: Atraumatic, normocephalic. Eyes are nonicteric. Trachea is midline. CARDIOVASCULAR: Irregularly irregular rhythm. Regular rate. No clicks rubs or murmurs RESPIRATORY: Clear vesicular breath sounds bilaterally. Slightly diminished in the bases. no wheezes, rhonchi, or rales ABDOMINAL: Soft, nondistended. Nontender. Normoactive bowel sounds SKIN: Stage 2 sacral pressure ulcer that appears clean without purulence EXTREMITIES: 1-2+ pitting edema in bilateral lower extremities. Right foot wound is s/p debridement with granulation tissue. Expression of joint with purulent material. Left Achilles heel wound appears clean with defined borders and granulation tissue NEUROLOGICAL: No focal neurological deficits. Resting tremor PSYCHOLOGICAL: Mood and affect appear appropriate LABORATORY DATA, IMAGING STUDIES, MICROBIOLOGY: Please see below. Echocardiogram: DATE OF PROCEDURE: 01/01/2020 DATE OF : 1955 AGE: 64 REFERRING PROVIDER: Dr. Adam Hillman PATIENT LOCATION: Room 3227 REASON FOR THE STUDY: Sepsis, atrial fibrillation. 2D MEASUREMENTS: IVS: 1.2 cm LV: 5.1 cm LVPW: 1.1 cm LA: 4.4 cm Aorta: 3.4 cm IVC: 2.4 cm DOPPLER MEASUREMENTS: Peak velocity across the aortic valve: 2.2 meters per second Peak velocity across the LVOT: 0.87 meters per second Peak gradient across the aortic valve: 20 mmHg Mean gradient across the aortic valve: 15 mmHg Maximum tricuspid valve velocity: 3.1 meters per second 2D COMMENTS: 1. Normal left ventricular size, wall thickness, and normal global left ventricular systolic function. The estimated left ventricular systolic ejection fraction is 60-65%. 2. Mildly dilated left atrium. The right atrium also appeared to be mildly enlarged. Normal right ventricle noted in limited views. 3. The atrial septum appeared to be normal without evidence of defect or shunt. 4. Normal aortic root. 5. Trace pericardial effusion was noted, no evidence of cardiac tamponade. 6. Mildly calcified aortic valve with minimal restricted leaflet motion. Mildly calcified mitral annulus with normal anterior mitral valve leaflet motion. Normal tricuspid valve. The pulmonic valve and proximal pulmonary artery branches were not well visualized. 7. The inferior vena cava was dilated, central venous pressure is most likely elevated. DOPPLER: It detects mild mitral regurgitation, mild tricuspid regurgitation. The calculated pulmonary artery systolic pressure varies between 40-50 mmHg. Assessment of the left ventricular diastolic function was limited in view of the underlying atrial fibrillation. IMPRESSION: 1. Normal global left ventricular systolic function. Assessment of the left ventricular diastolic function was limited in view of the underlying atrial fibrillation. 2. Aortic valve sclerosis with mild aortic stenosis but no aortic regurgitati on. 3. Mitral annulus calcification with a mildly enlarged left atrium and mild mitral regurgitation. 4. Mild tricuspid regurgitation with probably moderate pulmonary hypertension. The right atrium also appeared to be mildly enlarged. 5. Trace pericardial effusion, no evidence of cardiac tamponade. 6. This was compared with prior echocardiogram on 11/13/2019, no remarkable changes but then the patient was in normal sinus rhythm. DD: SARAH GREEN MD 01/02/20 2215 DT: KODY 01/03/20 0000 DVT prophylaxis ordered?: Mechanical ASSESSMENT AND PLAN: Patient is a 64 year old male with a history of chronic atrial fibrillation and non-healing lower extremity ulcers who presented to [facility] as a transfer from [facility] with Atrial fibrillation with RVR 1. Sepsis 2/2 MSSA Bacteremia 2/2 Right lower extremity foot ulceration -Elevated WBC, tachycardia, and febrile. Patient has positive blood cultures for Staph at [place] on 12/28/2019. He had received Vancomycin, Zosyn, and Muna penem at [place]. Repeat cultures at [facility] on 12/31/2019 positive for MSSA. Wound Culture of purulent material from Right foot ulcer on 12/31/19 positive for MSSA. Repeat blood cultures on 01/01/2020 negative. -Patient has been placed on Nafcillin 2g q4h for MSSA bacteremia. His source appears to be his right dorsal foot ulcer. Patient was examined at bedside with Dr. Romano and Dr. Hancock. Additionally Dr. Powers was present via telemedicine. Purulent material was expressed from the dorsal right foot joint space. Patient will likely need amputation of the right foot -repeat Procalcitonin 0.723 -Wound care for Lower Extremity ulcerations. Advanced Wound care consult with Dr. Powers. Recommendations per Dr. Powers for wound care. -Wound culture and gram stain of right foot dorsal ulceration positive for S. aureus. Culture was repeated on expressed material from patients right foot joint space although I'm certain this will likely be MSSA and the likely source of his bacteremia -Patient had transthoracic echocardiogram. If patient does not need amputation then he will need 6 weeks of Nafcillin regardless of an echocardiogram positive for endocarditis. The patient is likley not a candidate for a valve replacement and antibiotic therapy is likely the most feasible op tion. However, if he does get amputation of his right foot then he will likely need a SHELBI to guide duration of antibiotic therapy. -Patient currently scheduled in OR with Dr. Romano for Monday -Infectious Disease, Podiatry, and Advanced Wound Care Consult Placed. Recommendations and assistance appreciated. 2. Atrial Fibrillation with RVR -Patient is being followed by Cardiology. Assistance is appreciated. Ventricular rate is well controlled today. He has had amiodarone loading and digoxin loading. Patient to start PO dignoxin tomorrow. Diltiazem drip has been discontinued. Patient is currently on PO diltiazem. -Patient is on Eliquis outpatient. Unfortunately he had developed a re troperitoneal hematoma and his anticoagulation is on hold. 3. Left Posterior Oblique Hematoma -Patient has a hematoma which from previous records appears to have been present since at least November according to previous medical records. -Hemoglobin has been stable. -Will hold anticoagulation for now -Patient denies any pain in his back or flank area. Less likely that the hematoma is infected. 4. Pneumonia -Patient had presented from [place] with a diagnosis of pneumonia however his imaging demonstrated pleural effusions but no definite pneumonia 5. Diabetes Mellitus Type 2 -Consistent Carb diet -Sliding scale insulin coverage ACHS 6. Left Femoral Head Collapse/avascular necrosis -This is a chronic problem. The patient is aware. He will follow-up outpatient for management of this 7. DVT Prophylaxis -Mechanical DISPOSITION: Patient will likely need amputation of his right foot. Patient to go to OR on Monday with Dr. Romano. 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 VS, I&O, 24H, Fishbone Vital Signs/I&O Vital Signs Date Time Temp Pulse Resp B/P (MAP) Pulse Ox O2 Delivery O2 Flow Rate FiO2 01/03/20 13:10 96 166/79 01/03/20 12:00 3.0 01/03/20 09:42 17 01/03/20 08:14 97.9 99 Nasal Cannula I&O- Last 24 Hours up to 6 AM 01/03/20 05:59 Intake Total 1640 ml Output Total 750 ml Balance 890 ml Laboratory Data 24H LABS Laboratory Tests 2 01/02/20 16:50: Thyroid Stimulating Hormone (TSH) 0.723 01/02/20 17:11: Bedside Glucose (Misc Panel) 216H 01/02/20 19:51: Bedside Glucose (Misc Panel) 291H 01/03/20 05:13: Immature Granulocyte % (Auto) 0.9, Neutrophils (%) (Auto) 82.5H, Lymphocytes (%) (Auto) 8.9L, Monocytes (%) (Auto) 6.8H, Eosinophils (%) (Auto) 0.8, Basophils (%) (Auto) 0.1, Neutrophils # (Auto) 13.1H, Lymphocytes # (Auto) 1.4L, Monocytes # (Auto) 1.1H, Eosinophils # (Auto) 0.1, Basophils # (Auto) 0.0, Nucleated Red Blood Cells % (auto) 0.0, Anion Gap 4L, Glomerular Filtration Rate > 60.0, Calcium Level 8.4L 01/03/20 07:55: Vancomycin Level Trough 15.3 01/03/20 11:29: Bedside Glucose (Misc Panel) 210H CBC/BMP Laboratory Tests 01/03/20 05:13 Microbiology Microbiology 01/03/20 Gram Stain, Received Pending 01/03/20 Wound Culture, Received Pending 01/01/20 Blood Culture - Preliminary, Resulted No Growth after 48 hours. All Specime... 12/31/19 Gram Stain - Final, Complete 12/31/19 Wound Culture - Final, Complete Staphylococcus Aureus 12/31/19 Blood Culture - Final, Complete Staphylococcus Aureus 12/30/19 Blood Culture - Final, Complete Staphylococcus Aureus GME ATTESTATION GME ATTESTATION My faculty preceptor for this patient encounter was physically present during the encounter and was fully available. All aspects of the patient interview, examination, medical decision making process, and medical care plan development were reviewed and approved by the faculty preceptor. The faculty preceptor is aware and concurs with the plan as stated in the body of this note and will attest to such by his/her cosignature. ATTENDING NOTE Pt seen and examined by me. Agree with the above assessment and plan. ADAM HILLMAN DO Jan 03, 2020 15:05 HOLDEN AHMADI MD Jan 04, 2020 15:11
[2020-01-03] MEDS: LACTIC ACID 12% LOTION 225 GM BTL EXT SCH (15:14)
[2020-01-03] MEDS: oxyCODONE 5MG TAB PO PRN ×2 (15:24→21:41)
--- NOTE | 2020-01-03 16:27 | IPN ---
DATE: 01/03/2020 Patient seen and examined at bedside. Dr. Hancock present. Dr. Powers was available on teleconference at the same time. He denies significant new problems with his foot. He states he feels about the same. Vital signs are reviewed. He has remained afebrile. Labs are reviewed. White blood cell count is 15.9. Wound culture previously has grown Staphylococcus aureus. On examination, the foot does not have significant erythema or edema. However, with palpation, the wound is noted to have an unstable joint at the Lisfranc joint. There is some seropurulent fluid coming out from this wound. Remaining wound is mostly granular. ASSESSMENT: A 64-year-old diabetic male with unstable Charcot joint and infection. PLAN: The wound was debrided at bedside using a curette, including the unstable joint. New swab cultures taken of the fluid. Patient's wound and prognosis is very challenging given his unstable right foot. Ultimately, the joint will be a large liability if it cannot be fused; however, fusing that joint safely in presence of a large ulceration will be difficult as metallic hardware cannot be used as implant. For now, would care dressings have been ordered by Dr. Powers. He is under IV antibiotics. Will see if there is external fixation available that may be useful to stabilize this joint and ideally fuse it in the presence of a large ulcer. Will follow.
--- NOTE | 2020-01-03 19:43 | CR ---
DATE OF CONSULTATION: 01/03/2020 INFECTIOUS DISEASE CONSULTATION Asked to consult by hospitalist service for methicillin-sensitive Staphylococcus aureus (MSSA), staph aureus bacteremia. HISTORY OF PRESENT ILLNESS: Mr. Alex is a 64-year-old gentleman well known to me from previous hospitalization. The patient was transferred from [facility] on 12/30/2019 after he had spent a couple days there. The patient had positive blood cultures at [facility]. When he arrived to [facility], [place], he was complaining of being dizzy. He had some fever and chills and complaining of some pain in his feet. He denied any chest pain, cough, abdominal pain, nausea, vomiting or diarrhea. At [facility], he had atrial fibrillation with rapid ventricular response. Chest x-ray had bilateral pleural effusion with atelectasis/pneumonia. CT of the abdomen and pelvis showed a fluid collection, which was consistent with previous hematoma and left hip avascular necrosis. Blood cultures drawn on the 12/29/2019 were positive for staph aureus. Echocardiogram: Ejection fraction of 50%. The right foot seemed to be getting worse. He had an ulceration from previous hospitalization with acute osteomyelitis, but there was a deep abscess with purulent drainage. The patient has neuropathy and did not complain of much pain. He was started on vancomycin and meropenem at [facility] and was on vancomycin and Zosyn at [facility] from 12/30/2019 to 01/03/2020. Clinically, he is feeling a little better. He has had no fever or chills. No nausea, vomiting or diarrhea. He had been incontinent of urine, and therefore, a catheter was placed. He also has a small sore on his sacral area. PAST MEDICAL HISTORY: Significant for severe peripheral vascular disease, status post angioplasty of both legs, done by Dr. Mcdaniels, polymicrobial acute osteomyelitis of the right foot treated from 11/12/2019 and midline was removed on 12/17/2019. He received IV Rocephin and oral Flagyl at home. Foot MRI had shown, on 11/18/2019, osteomyelitis of the medial and middle cuneiform second metatarsal head, status post resection by Dr. Romano. Severe dry skin with plaques, treated with Lac-Hydrin. Left calf pressure ulcer. Insulin-dependent diabetes with diabetic neuropathy, chronic kidney disease, hyperlipidemia. ALLERGIES: TAPE. PAST SURGICAL HISTORY: Cardiac stent 2001, C6 corpectomy and C5-6 fusion with a graft and anterior cervical plate in 2002, left big toe amputation in 2012, melanoma of left eyelid - removal in 1998, rotator cuff surgery - bilateral, common and external iliac artery angioplasty and stenting, left superficial femoral artery angioplasty and stenting. FAMILY HISTORY: Father of cancer. SOCIAL HISTORY: He still smokes even after this hospitalization and long discussion regarding smoking cessation. He denies alcohol or drug use. He lives with his in [place]. REVIEW OF SYSTEMS: He has had no nausea, vomiting, diarrhea and no abdominal pain. No flank pain. He is incontinent of urine. He has some shortness of breath at baseline but no cough. He has severe hip pain and leg pain, which are chronic. MEDICATIONS: - nafcillin 2 grams IV every 4 hours, started on 01/03/2020 - vancomycin and Zosyn were from 12/30/2019 to 01/03/2020 - diltiazem 30 mg by mouth every 6 hours - aspirin 81 mg by mouth daily - heparin 5000 units subcu twice a day - Nystatin powder to abdominal fold - morphine 2 mg IV every 4 hours as needed - baclofen 10 mg by mouth nightly - Cymbalta 60 mg by mouth daily - Fentanyl 100 mcg topically every 3 days - pantoprazole 40 mg by mouth daily - Serevent one puff inhaled twice a day - oxycodone 10 mg by mouth four times a day as needed - amiodarone 400 mg by mouth twice a day - Levemir 40 units subcu twice a day - gabapentin 600 mg by mouth three times a day - Xalatan one drop OU nightly - Milk of Magnesia as needed LABORATORY DATA: White count was 14 on admission, today it is 15.9, hemoglobin 9.7, hematocrit 33, platelets 373, 82% neutrophils, 9% lymphocytes, 7% monocytes. Sodium 138, potassium 4.6, chloride 102, bicarbonate 32, BUN 15, creatinine 0.81, glucose 104, calcium 8.4, TSH 0.723. Procalcitonin 0.62, CRP 8.9 down from 14.9 on 12/31/2019. Microbiology: Blood cultures times two sets are positive for MSSA on 12/30/2019 and 12/31/2019. These were done at least 18 hours apart. On 01/01/2020, blood culture was negative. Gram stain from the right foot also has MSSA. IMAGING STUDIES: Foot x-ray 01/01/2020: Progressive arthropathy at the tarsometatarsal articulation with lateral subluxation of all the metatarsals, some loss of the tarsal arch, which is new from previous study. There is also acute appearing cortical erosion in the medial cortex of the cuneiform and the navicular bone. CT abdomen and pelvis done on 12/30/2019 shows an extensive left-sided retroperitoneal hematoma. This has improved somewhat, mildly smaller today. At the level of the mid kidney, there is an elliptical-shaped component of the same hematoma 5.9 x 3.5 that has also improved. There is one hematoma that seems to be slightly larger on 11/21/2019. For the most part, all the hematomas have improved except for one area. PHYSICAL EXAMINATION: Pleasant gentleman in no acute distress. He is in discomfort whenever he is moved around. Heart: Normal, S1, S2 with no murmurs appreciated. Lungs: Diminished breath sounds bilaterally with few exterior rhonchi. No wheezes or rales. Abdomen: Distended, soft, nontender. No ecchymosis. No flank tenderness. Extremities: Scaly, no clubbing or cyanosis or edema. Left calf ulcer measures about 8 x 3 cm with granulation tissue, no purulence right foot and dorsal aspect of the foot has a large ulcer measuring at least 5 x 7 cm with an open ulcer that probes down 1 cm with large amount of purulent discharge. There is surrounding cellulitis around the foot. This is new finding; the foot is unstable and at the mid tarsal area. IMPRESSION: 64-year-old gentleman with acute osteomyelitis of the right foot, now with staph aureus abscess and worsening infection with x-ray findings consistent with loss of the tarsal arch and subluxation of the metatarsals. This is his good foot, and where he does most of his weightbearing due to severe hip pain from avascular necrosis. This is going to be a big problem as I do not see how this bone will heal and allow him to weightbear on it. PLAN: Case has been discussed with Dr. Powers who did a telemedicine conference with us at the bedside. Dr. Romano is involved, and he did debride the bone at the bedside. Antibiotic was switched to IV nafcillin 2 grams every 4 hours. The patient will need 6 weeks of IV antibiotic if there is a chance of saving that foot. Transthoracic echocardiogram has been done. I do not see right now a need for transesophageal echocardiogram (SHELBI) as he would not be a surgical candidate even if he had endocarditis, and he will be treated with 6 weeks for now. Will continue to monitor. If there is no improvement, then he will need an amputation. As for dry skin, please use Lac-Hydrin lotion on both lower extremities. MTDD
[2020-01-03] MEDS: ACETAMINOPHEN TAB 650MG DOSE (2X325MG) PO PRN (20:19)
[2020-01-03] MEDS: ASPIRIN 81 MG ENTERIC TAB PO SCH (21:01)
[2020-01-03] MEDS: BACLOFEN 10 MG TAB PO SCH (21:03)
[2020-01-03] MEDS: LATANOPROST 0.005% OPHTH SOLN 2.5 ML OU SCH (21:06)
--- NOTE | 2020-01-03 21:40 | CR ---
DATE OF CONSULTATION: 01/03/2020 ADVANCED WOUND CARE CONSULT Consult requested by Dr. Juan Pablo Tavarez, regarding dressing changes and wound care recommendations. 64-year-old diabetic male, poorly controlled with advanced bilateral peripheral vascular disease, status post bilateral angioplasty, has been followed at our wound care center for over 2 years. The patient's compliance is poor, and he frequently missed appointments. Despite our recommendation, he is still smoking. According to the recent history, the patient was admitted with sepsis, positive blood culture for methicillin-resistant Staphylococcus aureus (MRSA), also with congestive heart failure and uncontrolled diabetes. When seen today, the patient appears to have stabilized, has been treated with diuretics with a good response, is alert, oriented and does not appear in distress. The patient has two wounds involving right and left lower extremities. The right dorsal foot shows a wound measuring 8.3 cm x 4.4 cm with a wound depth of 1.0 cm. The wound is significant in that when treated recently at our wound center prior to admission necrotic bone was removed consistent with the cuneiform bone which was positive for osteomyelitis. This bone is a square wedge-shaped bone, the major component of the Lisfranc joint, which stabilizes the foot. The fact that this bone is no longer present makes his right foot and ankle joint unstable and places him at a significant risk for amputation of the right leg in the future. It is unclear when he begins to attempt to walk if the foot will further deteriorate. Stabilization of the foot and ankle at this point is impossible due to infection and would require bone fusion, which is not feasible at this time. The wound itself is appears relatively clean without purulent drainage or necrotic tissue. Treatment recommendations: Clean wound with Vashe wound cleanser for 10 minutes, then dress with Hydrofera Blue rope to be gently placed within the wound bed itself and covering the remaining wound with Hydrofera Blue sheet (not rope) This should then be covered with an outer foam dressing or an OptiLock and secured with a Kerlix wrap. Left lower extremity shows a resolving anterior, pretibial wound which would only require a foam dressing and a a full-thickness posterior calf wound, which has shown significant recent improvement. There is minimal serosanguineous drainage noted , this is a linear wound measuring 10.0 cm x1.0 cm with a depth of 0.2 cm. Treatment for this wound is an absorptive dressing such as an OptiLock, again secured with a Kerlix wrap. Both wounds can be changed on an every other day basis unless there is significant drainage and/or strike-through. Bilateral heel float boots should be ordered to ensure offloading of the heels and to prevent deep tissue injuries for which the patient is at significant risk. Tubigrip support stockings should be utilized bilaterally to prevent gravitational dependent edema and/or secondary edema from his resolving congestive heart failure. If and when the patient stabilizes and is transferred out of acute care, he can be followed at our wound care center if so desired. Please make a recommendation and consult us prior to discharge I will be available for any questions or to add in the patient's generalized wound care. Thank you for this consultation MEEK
[2020-01-04] VITALS: BP 152/74
[2020-01-04] MEDS: NAFCILLIN SOD 2 GM in D5W MINI-BAG PLUS 50 ML IV SCH ×5 (03:57→21:33)
[2020-01-04 04:00] VITALS: BP 156/74
[2020-01-04 05:07] LABS: BASO % 0.2 % (0.0-1.0); EOS # 0.1 10^3/uL (0.0-0.5); EOS % 1.3 % (0.0-3.0); HEMOGLOBIN 10.7 g/dl (13.5-17.5); LYMPH # 1.2 10^3/uL (1.5-5.0); LYMPH % 10.3 % (24.0-44.0); MEAN CORPUSCULAR HGB CONC 28.9 g/dl (32.0-36.5); MONO # 0.9 10^3/uL (0.0-0.8); MONO % 8.1 % (0.0-5.0); NEUTROPHILS # 8.8 10^3/uL (1.5-8.5); NEUTROPHILS % 78.7 % (36.0-66.0); PLATELET COUNT, AUTOMATED 356 10^3/uL (150-450); RED BLOOD COUNT 4.46 10^6/uL (4.30-6.10); WHITE BLOOD COUNT 11.1 10^3/uL (4.0-10.0)
[2020-01-04] MEDS: SLF 3 ML SYR IV SCH ×3 (05:14→21:37)
[2020-01-04] MEDS: oxyCODONE 5MG TAB PO PRN ×2 (05:20→18:18)
[2020-01-04 05:41] LABS: BLOOD UREA NITROGEN 16 MG/DL (7-18); CALCIUM LEVEL 8.7 MG/DL (8.8-10.2); CARBON DIOXIDE LEVEL 36 MEQ/L (21-32); CHLORIDE LEVEL 101 MEQ/L (98-107); CREATININE FOR GFR 0.75 MG/DL (0.70-1.30); GLOMERULAR FILTRATION RATE > 60.0 (>49); GLUCOSE, FASTING 116 MG/DL (70-100); POTASSIUM SERUM 4.6 MEQ/L (3.5-5.1); SODIUM LEVEL 138 MEQ/L (136-145)
[2020-01-04] MEDS: HumaLOG INSULIN (NovoLOG) PER UNIT SC SCH ×4 (07:30→21:00)
[2020-01-04 08:00] VITALS: BP 162/80
[2020-01-04] MEDS: SALMETEROL DISKUS 50MCG INHALER (SEREVENT) INH SCH ×2 (08:08→20:00)
[2020-01-04] MEDS: LEVEMIR (INSULIN DETEMIR) 1 UNITS/0.01ML SC SCH ×2 (08:24→21:00)
[2020-01-04] MEDS: NYSTATIN 100,000 UNITS/GM TOPICAL PWD 15 GM TOP SCH ×2 (08:24→21:34)
[2020-01-04] MEDS: LACTIC ACID 12% LOTION 225 GM BTL EXT SCH (08:24)
[2020-01-04] MEDS: ACETAMINOPHEN TAB 650MG DOSE (2X325MG) PO PRN (08:25)
[2020-01-04] MEDS: DULoxetine 30 MG CAP (CYMBALTA) PO SCH (08:25)
[2020-01-04] MEDS: GABAPENTIN 300 MG CAP PO SCH ×3 (08:25→21:33)
[2020-01-04] MEDS: PANTOPRAZOLE 40MG TAB (PROTONIX) PO SCH (08:25)
[2020-01-04] MEDS: HEPARIN SOD (PORCINE) 5000UNITS/ML VIAL (J1644 PER 1000UNITS) SQ SCH ×2 (08:25→21:34)
[2020-01-04] MEDS: AMIODARONE 200 MG TAB (PACERONE) PO SCH ×2 (08:25→21:33)
--- NOTE | 2020-01-04 09:58 | IPNPDOC ---
Date Seen The patient was seen on 01/04/20. Progress Note SUBJECTIVE: Patient was seen and examined this morning. There have been no new events reported overnight. He has no new complaints. He states that his left hip continues to hurt him however nothing more than his baseline. I did speak with the patients yesterday in regards to his ongoing care. She had stated that she is unable to care for him at home and states that she would like placement for him at a facility preferably in [place]. She had previously been caring for him completely on her own and had stated she is unable to provide that care any more. She has mentioned this to the patient. Today the patient states that he understands what is going on and that there is a high likelihood that he would lose his right foot and not be able to ambulate anymore. He has stated that he would like Dr. Prado recommendation before an amputation would occur OBJECTIVE PHYSICAL EXAMINATION: VITAL SIGNS: Please see below. GENERAL: Awake, alert, and oriented. Appears in no acute distress. Lying comfortably in bed. HEENT: Atraumatic, normocephalic. Eyes are nonicteric. Trachea is midline. CARDIOVASCULAR: Irregularly irregular rhythm. Regular rate. No clicks rubs or murmurs RESPIRATORY: Clear vesicular breath sounds bilaterally. Slightly diminished in the bases. no wheezes, rhonchi, or rales ABDOMINAL: Soft, nondistended. Nontender. Normoactive bowel sounds SKIN: Stage 2 sacral pressure ulcer that appears clean without purulence EXTREMITIES: 1-2+ pitting edema in bilateral lower extremities. Right foot wound and left Achilles heel wound currently bandaged. Pressure boots applied NEUROLOGICAL: No focal neurological deficits. Resting tremor PSYCHOLOGICAL: Mood and affect appear appropriate LABORATORY DATA, IMAGING STUDIES, MICROBIOLOGY: Please see below. Echocardiogram: DATE OF PROCEDURE: 01/01/2020 DATE OF : 1955 AGE: 64 REFERRING PROVIDER: Dr. Adam Hillman PATIENT LOCATION: Room 3227 REASON FOR THE STUDY: Sepsis, atrial fibrillation. 2D MEASUREMENTS: IVS: 1.2 cm LV: 5.1 cm LVPW: 1.1 cm LA: 4.4 cm Aorta: 3.4 cm IVC: 2.4 cm DOPPLER MEASUREMENTS: Peak velocity across the aortic valve: 2.2 meters per second Peak velocity across the LVOT: 0.87 meters per second Peak gradient across the aortic valve: 20 mmHg Mean gradient across the aortic valve: 15 mmHg Maximum tricuspid valve velocity: 3.1 meters per second 2D COMMENTS: 1. Normal left ventricular size, wall thickness, and normal global left ventricular systolic function. The estimated left ventricular systolic ejection fraction is 60-65%. 2. Mildly dilated left atrium. The right atrium also appeared to be mildly enlarged. Normal right ventricle noted in limited views. 3. The atrial septum appeared to be normal without evidence of defect or shunt. 4. Normal aortic root. 5. Trace pericardial effusion was noted, no evidence of cardiac tamponade. 6. Mildly calcified aortic valve with minimal restricted leaflet motion. Mildly calcified mitral annulus with normal anterior mitral valve leaflet motion. Normal tricuspid valve. The pulmonic valve and proximal pulmonary artery branches were not well visualized. 7. The inferior vena cava was dilated, central venous pressure is most likely elevated. DOPPLER: It detects mild mitral regurgitation, mild tricuspid regurgitation. The calculated pulmonary artery systolic pressure varies between 40-50 mmHg. Assessment of the left ventricular diastolic function was limited in view of the underlying atrial fibrillation. IMPRESSION: 1. Normal global left ventricular systolic function. Assessment of the left ventricular diastolic function was limited in view of the underlying atrial fibrillation. 2. Aortic valve sclerosis with mild aortic stenosis but no aortic regurgitation. 3. Mitral annulus calcification with a mildly enlarged left atrium and mild mitral regurgitation. 4. Mild tricuspid regurgitation with probably moderate pulmonary hypertension. The right atrium also appeared to be mildly enlarged. 5. Trace pericardial effusion, no evidence of cardiac tamponade. 6. This was compared with prior echocardiogram on 11/13/2019, no remarkable changes but then the patient was in normal sinus rhythm. DD: SARAH GREEN MD 01/02/20 2215 DT: KODY 01/03/20 0000 DVT prophylaxis ordered?: Mechanical ASSESSMENT AND PLAN: Patient is a 64 year old male with a history of chronic atrial fibrillation and non-healing lower extremity ulcers who presented to [facility] as a transfer from [facility] with Atrial fibrillation with RVR 1. Sepsis 2/2 MSSA Bacteremia 2/2 Right lower extremity foot ulceration -Patient has MSSA bacteremia and right foot osteomyelitis. He has been transitioned to Nafcillin 2g q4h yesterday. He will likley need 6 weeks IV antibiotics unless foot is amputated. -Wound care recommendations per Dr. Powers -Patient currently scheduled in OR with Dr. Romano for Monday -Infectious Disease, Podiatry, and Advanced Wound Care Consult Placed. Recommendations and assistance appreciated. 2. Atrial Fibrillation with RVR -Patient is being followed by Cardiology. Assistance is appreciated. Ventricular rate is well controlled today. He has had amiodarone loading and digoxin loading. Patient to start PO digoxin today. Diltiazem drip has been discontinued. Patient is currently on PO diltiazem. -Patient is on Eliquis outpatient. Unfortunately he had developed a retroperitoneal hematoma and his anticoagulation is on hold. 3. Left Posterior Oblique Hematoma -Patient has a hematoma which from previous records appears to have been present since at least November according to previous medical records. -Hemoglobin has been stable. -Will hold anticoagulation for now 4. Pneumonia -Patient had presented from [place] with a diagnosis of pneumonia however his imaging demonstrated pleural effusions but no definite pneumonia 5. Diabetes Mellitus Type 2 -Consistent Carb diet -Sliding scale insulin coverage ACHS 6. Left Femoral Head Collapse/avascular necrosis -This is a chronic problem. The patient is aware. He will follow-up outpatient for management of this 7. DVT Prophylaxis -Mechanical DISPOSITION: Patient planned for OR on Monday with Dr. Romano. High likelihood of amputation of the right foot. He is dependant on his right foot for weightbearing given his left hip avascular necrosis. He will be nonambulatory if amputation is performed. His has expressed concern for continued care for him at home. 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 VS, I&O, 24H, Fishbone Vital Signs/I&O Vital Signs Date Time Temp Pulse Resp B/P (MAP) Pulse Ox O2 Delivery O2 Flow Rate FiO2 01/04/20 08:00 97.1 121 19 162/80 (107) 97 Nasal Cannula 2.0 I&O- Last 24 Hours up to 6 AM 01/04/20 05:59 Intake Total 730 ml Output Total 3875 ml Balance -3145 ml Laboratory Data 24H LABS Laboratory Tests 2 01/03/20 11:29: Bedside Glucose (Misc Panel) 210H 01/03/20 16:31: Bedside Glucose (Misc Panel) 266H 01/03/20 20:24: Bedside Glucose (Misc Panel) 284H 01/04/20 04:41: Immature Granulocyte % (Auto) 1.4, Neutrophils (%) (Auto) 78.7H, Lymphocytes (%) (Auto) 10.3L, Monocytes (%) (Auto) 8.1H, Eosinophils (%) (Auto) 1.3, Basophils (%) (Auto) 0.2, Neutrophils # (Auto) 8.8H, Lymphocytes # (Auto) 1.2L, Monocytes # (Auto) 0.9H, Eosinophils # (Auto) 0.1, Basophils # (Auto) 0.0, Nucleated Red Blood Cells % (auto) 0.0, Anion Gap 1L, Glomerular Filtration Rate > 60.0, Calcium Level 8.7L CBC/BMP Laboratory Tests 01/04/20 04:41 Microbiology Microbiology 01/03/20 Gram Stain - Final, Resulted 01/03/20 Wound Culture, Resulted Pending 01/01/20 Blood Culture - Preliminary, Resulted No Growth after 72 hours. All specime... 12/31/19 Gram Stain - Final, Complete 12/31/19 Wound Culture - Final, Complete Staphylococcus Aureus 12/31/19 Blood Culture - Final, Complete Staphylococcus Aureus 12/30/19 Blood Culture - Final, Complete Staphylococcus Aureus GME ATTESTATION GME ATTESTATION My faculty preceptor for this patient encounter was physically present during the encounter and was fully available. All aspects of the patient interview, examination, medical decision making process, and medical care plan development were reviewed and approved by the faculty preceptor. The faculty preceptor is aware and concurs with the plan as stated in the body of this note and will attest to such by his/her cosignature. ATTENDING NOTE Pt seen and examined by me. Agree with the above assessment and plan. ADAM HILLMAN DO Jan 04, 2020 09:58 HOLDEN AHMADI MD Jan 04, 2020 15:14
[2020-01-04] MEDS: DIGOXIN 0.125 MG TAB PO SCH (13:19)
[2020-01-04 16:00] VITALS: BP 156/82
[2020-01-04 20:00] VITALS: BP 143/67
[2020-01-04] MEDS: BACLOFEN 10 MG TAB PO SCH (21:33)
[2020-01-04] MEDS: ASPIRIN 81 MG ENTERIC TAB PO SCH (21:33)
[2020-01-04] MEDS: LATANOPROST 0.005% OPHTH SOLN 2.5 ML OU SCH (21:34)
[2020-01-05] VITALS: BP 170/71
[2020-01-05] MEDS: NAFCILLIN SOD 2 GM in D5W MINI-BAG PLUS 50 ML IV SCH ×6 (00:15→21:14)
[2020-01-05 01:00] VITALS: BP 163/70
[2020-01-05 04:00] VITALS: BP 139/71
[2020-01-05 04:41] LABS: BASO % 0.2 % (0.0-1.0); EOS # 0.2 10^3/uL (0.0-0.5); EOS % 2.4 % (0.0-3.0); HEMATOCRIT 36.3 % (42.0-52.0); HEMOGLOBIN 10.3 g/dl (13.5-17.5); LYMPH # 1.2 10^3/uL (1.5-5.0); LYMPH % 12.5 % (24.0-44.0); MEAN CORPUSCULAR HEMOGLOBIN 23.8 pg (27.0-33.0); MEAN CORPUSCULAR HGB CONC 28.4 g/dl (32.0-36.5); MEAN CORPUSCULAR VOLUME 83.8 fl (80.0-96.0); MONO # 0.8 10^3/uL (0.0-0.8); MONO % 8.9 % (0.0-5.0); NEUTROPHILS # 6.9 10^3/uL (1.5-8.5); NEUTROPHILS % 74.8 % (36.0-66.0); PLATELET COUNT, AUTOMATED 363 10^3/uL (150-450); RED BLOOD COUNT 4.33 10^6/uL (4.30-6.10); WHITE BLOOD COUNT 9.2 10^3/uL (4.0-10.0)
[2020-01-05] MEDS: oxyCODONE 5MG TAB PO PRN ×3 (04:53→22:14)
[2020-01-05] MEDS: SLF 3 ML SYR IV SCH ×3 (04:55→21:24)
[2020-01-05 05:08] LABS: BLOOD UREA NITROGEN 15 MG/DL (7-18); CALCIUM LEVEL 8.3 MG/DL (8.8-10.2); CARBON DIOXIDE LEVEL 35 MEQ/L (21-32); CHLORIDE LEVEL 100 MEQ/L (98-107); CREATININE FOR GFR 0.73 MG/DL (0.70-1.30); GLOMERULAR FILTRATION RATE > 60.0 (>49); GLUCOSE, FASTING 158 MG/DL (70-100); POTASSIUM SERUM 5.4 MEQ/L (3.5-5.1); SODIUM LEVEL 140 MEQ/L (136-145)
[2020-01-05] MEDS: SALMETEROL DISKUS 50MCG INHALER (SEREVENT) INH SCH ×2 (07:11→19:51)
[2020-01-05 08:00] VITALS: BP 156/78
[2020-01-05] MEDS: HumaLOG INSULIN (NovoLOG) PER UNIT SC SCH ×4 (09:27→22:33)
[2020-01-05] MEDS: HEPARIN SOD (PORCINE) 5000UNITS/ML VIAL (J1644 PER 1000UNITS) SQ SCH ×2 (09:27→21:16)
[2020-01-05] MEDS: LEVEMIR (INSULIN DETEMIR) 1 UNITS/0.01ML SC SCH ×2 (09:27→21:15)
[2020-01-05] MEDS: DULoxetine 30 MG CAP (CYMBALTA) PO SCH (09:28)
[2020-01-05] MEDS: DIGOXIN 0.125 MG TAB PO SCH (09:28)
[2020-01-05] MEDS: AMIODARONE 200 MG TAB (PACERONE) PO SCH ×2 (09:28→21:16)
[2020-01-05] MEDS: LACTIC ACID 12% LOTION 225 GM BTL EXT SCH (09:28)
[2020-01-05] MEDS: PANTOPRAZOLE 40MG TAB (PROTONIX) PO SCH (09:28)
[2020-01-05] MEDS: NYSTATIN 100,000 UNITS/GM TOPICAL PWD 15 GM TOP SCH ×2 (09:28→21:23)
[2020-01-05] MEDS: GABAPENTIN 300 MG CAP PO SCH ×3 (09:28→21:16)
--- NOTE | 2020-01-05 14:35 | IPNPDOC ---
Date Seen The patient was seen on 01/05/20. Progress Note SUBJECTIVE: Patient reports pain in his feet but otherwise he states that he is comfortable. WBC trended down 11->9.2. Afebrile overnight. K+ 5.4 this AM. OBJECTIVE PHYSICAL EXAMINATION: VITAL SIGNS: Please see below. General: No acute distress, Alert Eyes: Normal sclera, EOMI HENT: Atraumatic Cardiovascular: Normal rate, no murmurs appreciated Pulmonary: Clear to auscultation b/l, no wheezing GI: Soft, nontender, nondistended Skin: severely dry scaly skin in LE. R. foot dorsum wound clean and dry with overlying bandage. L. heel wound covered in dressing. Neuro: CN grossly intact. No focal deficits. Strengths equal b/l. Psych: oriented x 3 LABORATORY DATA, IMAGING STUDIES, MICROBIOLOGY: Please see below. DVT prophylaxis ordered?: HSQ ASSESSMENT AND PLAN: 1. Sepsis 2/2 MSSA bacteremia - R. foot osteomyelitis on Nafcillin. Planned for 6 weeks Abx unless amputation. - Wound care Dr. Powers consulted. - Scheduled for debridement with Dr. Romano on Monday with possible amputation. - ID also following, appreciated recommendations. 2. Afib w/ RVR - On cardizem and digoxin. Cardiology following. - Normally on Eliquis as outpatient, which is held at this time due to retroperitoneal hematoma. 3. L. posterior oblique hematoma - monitor H/H. - continue holding Eliquis. 4. DM - ISS with consistent carbohydrates diet. 5. L. femoral head collapse/avascular necrosis - known chronic problem and to get further follow up outpatient. 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 May get amputation of R. foot with L. hip avascular necrosis, ambulation will be difficult. VS, I&O, 24H, Fishbone Vital Signs/I&O Vital Signs Date Time Temp Pulse Resp B/P (MAP) Pulse Ox O2 Delivery O2 Flow Rate FiO2 01/05/20 12:25 89 156/78 01/05/20 12:00 Nasal Cannula 2.0 01/05/20 09:39 98.0 01/05/20 08:00 19 97 I&O- Last 24 Hours up to 6 AM 01/05/20 06:00 Intake Total 520 ml Output Total 2250 ml Balance -1730 ml Laboratory Data 24H LABS Laboratory Tests 2 01/04/20 17:09: Bedside Glucose (Misc Panel) 123H 01/04/20 20:04: Bedside Glucose (Misc Panel) 92 01/05/20 04:28: Immature Granulocyte % (Auto) 1.2, Neutrophils (%) (Auto) 74.8H, Lymphocytes (%) (Auto) 12.5L, Monocytes (%) (Auto) 8.9H, Eosinophils (%) (Auto) 2.4, Basophils (%) (Auto) 0.2, Neutrophils # (Auto) 6.9, Lymphocytes # (Auto) 1.2L, Monocytes # (Auto) 0.8, Eosinophils # (Auto) 0.2, Basophils # (Auto) 0.0, Nucleated Red Blood Cells % (auto) 0.0, Anion Gap 5L, Glomerular Filtration Rate > 60.0, Calcium Level 8.3L 01/05/20 12:02: Bedside Glucose (Misc Panel) 206H CBC/BMP Laboratory Tests 01/05/20 04:28 Microbiology Microbiology 01/03/20 Gram Stain - Final, Complete 01/03/20 Wound Culture - Final, Complete Staphylococcus Aureus 01/01/20 Blood Culture - Preliminary, Resulted No Growth after 72 hours. All specime... 12/31/19 Gram Stain - Final, Complete 12/31/19 Wound Culture - Final, Complete Staphylococcus Aureus 12/31/19 Blood Culture - Final, Complete Staphylococcus Aureus 12/30/19 Blood Culture - Final, Complete Staphylococcus Aureus JULIO BORDEN MD Jan 05, 2020 14:35
[2020-01-05 16:00] VITALS: BP 160/88
[2020-01-05 20:00] VITALS: BP 137/69
[2020-01-05] MEDS: ASPIRIN 81 MG ENTERIC TAB PO SCH (21:15)
[2020-01-05] MEDS: BACLOFEN 10 MG TAB PO SCH (21:16)
[2020-01-05] MEDS: LATANOPROST 0.005% OPHTH SOLN 2.5 ML OU SCH (21:22)
[2020-01-06] VITALS (21 sets, daily range): BP systolic 129–172; BP diastolic 60–85; O2SAT 86–99
[2020-01-06] MEDS: MORPHINE 2 MG/ML 1ML VIAL (J2270) IV PRN (00:44)
[2020-01-06] MEDS: NAFCILLIN SOD 2 GM in D5W MINI-BAG PLUS 50 ML IV SCH ×6 (00:44→20:44)
[2020-01-06 05:35] LABS: HEMATOCRIT 34.4 % (42.0-52.0); HEMOGLOBIN 9.8 g/dl (13.5-17.5); MEAN CORPUSCULAR HEMOGLOBIN 23.6 pg (27.0-33.0); MEAN CORPUSCULAR HGB CONC 28.5 g/dl (32.0-36.5); MEAN CORPUSCULAR VOLUME 82.7 fl (80.0-96.0); PLATELET COUNT, AUTOMATED 329 10^3/uL (150-450); RED BLOOD COUNT 4.16 10^6/uL (4.30-6.10); WHITE BLOOD COUNT 8.5 10^3/uL (4.0-10.0)
[2020-01-06 05:56] LABS: BLOOD UREA NITROGEN 16 MG/DL (7-18); CALCIUM LEVEL 8.7 MG/DL (8.8-10.2); CARBON DIOXIDE LEVEL 33 MEQ/L (21-32); CHLORIDE LEVEL 101 MEQ/L (98-107); CREATININE FOR GFR 0.79 MG/DL (0.70-1.30); GLOMERULAR FILTRATION RATE > 60.0 (>49); GLUCOSE, FASTING 58 MG/DL (70-100); SODIUM LEVEL 141 MEQ/L (136-145)
[2020-01-06] MEDS: SLF 3 ML SYR IV SCH ×3 (06:52→20:51)
[2020-01-06] MEDS: HumaLOG INSULIN (NovoLOG) PER UNIT SC SCH ×4 (07:30→20:45)
[2020-01-06] MEDS: SALMETEROL DISKUS 50MCG INHALER (SEREVENT) INH SCH ×2 (08:09→20:41)
[2020-01-06] MEDS: LEVEMIR (INSULIN DETEMIR) 1 UNITS/0.01ML SC SCH ×2 (09:00→20:46)
[2020-01-06] MEDS: DULoxetine 30 MG CAP (CYMBALTA) PO SCH (09:23)
[2020-01-06] MEDS: DIGOXIN 0.125 MG TAB PO SCH (09:23)
[2020-01-06] MEDS: PANTOPRAZOLE 40MG TAB (PROTONIX) PO SCH (09:23)
[2020-01-06] MEDS: AMIODARONE 200 MG TAB (PACERONE) PO SCH ×2 (09:23→20:45)
[2020-01-06] MEDS: HEPARIN SOD (PORCINE) 5000UNITS/ML VIAL (J1644 PER 1000UNITS) SQ SCH ×2 (09:23→20:46)
[2020-01-06] MEDS: GABAPENTIN 300 MG CAP PO SCH ×3 (09:23→20:45)
[2020-01-06] MEDS: NYSTATIN 100,000 UNITS/GM TOPICAL PWD 15 GM TOP SCH ×2 (09:27→20:48)
[2020-01-06] MEDS: fentaNYL 100 MCG/HR PATCH TOP SCH (09:27)
[2020-01-06] MEDS: LACTIC ACID 12% LOTION 225 GM BTL EXT SCH (09:28)
[2020-01-06] MEDS: oxyCODONE 5MG TAB PO PRN ×3 (09:35→20:51)
[2020-01-06] MEDS: FENTANYL REMOVAL DOCUMENTATION MISC XX SCH (09:44)
--- NOTE | 2020-01-06 14:26 | IPN ---
DATE: 01/06/2020 Patient seen and examined. He is resting comfortably. Vital signs are reviewed. He has remained afebrile. Labs are reviewed. White blood cell count is 8.5. Wound dressings are clean and intact. ASSESSMENT: This is a 64-year-old male with unstable Charcot foot with large dorsal ulceration and osteomyelitis. PLAN: Foot/leg situation is discussed with patient. He has a very unstable foot, which has high risk for failure. He has no chance of this healing without fusing. Even if the bone were to heal in a cast as soon as he bore weight on this foot the wound would reopen. He would best be served with a fusion of these unstable joints. This is challenging given there is a large ulceration at the site. We will plan to do this with external fixation and possible pin fixation. This is scheduled for Monday. He is aware that this is no guarantee of success, but given his alternative to treatment is amputation on his more functional limb he is willing to take this risk. He should be nothing by mouth at midnight on Monday. MEDISYS HEALTH NETWORKAddie
--- NOTE | 2020-01-06 17:38 | IPNPDOC ---
Date Seen The patient was seen on 01/06/20. Progress Note SUBJECTIVE: Patient was seen and examined this morning. No adverse events were reported overnight. Patient himself has no new complaints. He has continued left hip pain. OBJECTIVE PHYSICAL EXAMINATION: VITAL SIGNS: Please see below. GENERAL: Awake, alert, and oriented. Appears in no acute distress. Lying comfortably in bed. HEENT: Atraumatic, normocephalic. Eyes are nonicteric. Trachea is midline. CARDIOVASCULAR: Irregularly irregular rhythm. Regular rate. No clicks rubs or murmurs RESPIRATORY: Clear vesicular breath sounds bilaterally. Slightly diminished in the bases. no wheezes, rhonchi, or rales ABDOMINAL: Soft, nondistended. Nontender. Normoactive bowel sounds SKIN: Stage 2 sacral pressure ulcer that appears clean without purulence EXTREMITIES: 1-2+ pitting edema in bilateral lower extremities. Right foot wound and left Achilles heel wound currently bandaged. Pressure boots applied NEUROLOGICAL: No focal neurological deficits. Resting tremor PSYCHOLOGICAL: Mood and affect appear appropriate LABORATORY DATA, IMAGING STUDIES, MICROBIOLOGY: Please see below. Echocardiogram: SEE PREVIOUS REPORT DVT prophylaxis ordered?: Mechanical ASSESSMENT AND PLAN: Patient is a 64 year old male with a history of chronic atrial fibrillation and non-healing lower extremity ulcers who presented to [facility] as a transfer from [facility] with Atrial fibrillation with RVR 1. Sepsis 2/2 MSSA Bacteremia 2/2 Right lower extremity foot ulceration/osteomyelitis -Patient has MSSA bacteremia and right foot osteomyelitis. Continued on Nafcillin. He will likely need 6 weeks IV antibiotics unless foot is amputated. -Wound care recommendations per Dr. Powers -Patient currently scheduled in OR with Dr. Romano for Monday. Hopes for preservation of the foot however patient remains high risk for amputation -Infectious Disease, Podiatry, and Advanced Wound Care Consult Placed. Recommendations and assistance appreciated. 2. Atrial Fibrillation with RVR -Patient is being followed by Cardiology. Assistance is appreciated. Ventricular rate is well controlled today. He has had amiodarone loading and digoxin loading. Patient to start PO digoxin today. Diltiazem drip has been discontinued. Patient is currently on PO diltiazem. -Patient is on Eliquis outpatient. Unfortunately he had developed a retroperitoneal hematoma and his anticoagulation is on hold. -Will need to discuss with cardiology plans for resumption of anticoagulation 3. Left Posterior Oblique Hematoma -Patient has a hematoma which from previous records appears to have been present since at least November according to previous medical records. -Hemoglobin has been stable. -Anticoagulation is on hold 4. Diabetes Mellitus Type 2 -Consistent Carb diet -Levemir -Sliding scale insulin coverage ACHS 5. Left Femoral Head Collapse/avascular necrosis -This is a chronic problem. The patient is aware. He will follow-up outpatient for management of this 6. DVT Prophylaxis -Mechanical DISPOSITION: Patient is planned for OR with Dr. Romano on Monday. He will be NPO after midnight on Monday01/07/2020. Further management is pending on whether patients foot is amputated or not VS, I&O, 24H, Fishbone Vital Signs/I&O Vital Signs Date Time Temp Pulse Resp B/P (MAP) Pulse Ox O2 Delivery O2 Flow Rate FiO2 01/06/20 16:00 96.5 93 18 158/85 (109) 92 Room Air 01/06/20 12:00 2.0 I&O- Last 24 Hours up to 6 AM 01/06/20 06:00 Intake Total 1190 ml Output Total 2985 ml Balance -1795 ml Laboratory Data 24H LABS Laboratory Tests 2 01/05/20 21:21: Bedside Glucose (Misc Panel) 304H 01/06/20 05:20: Nucleated Red Blood Cells % (auto) 0.0, Anion Gap 7L, Glomerular Filtration Rate > 60.0, Calcium Level 8.7L 01/06/20 07:33: Bedside Glucose (Misc Panel) 80 01/06/20 12:18: Bedside Glucose (Misc Panel) 237H 01/06/20 17:25: Bedside Glucose (Misc Panel) 270H CBC/BMP Laboratory Tests 01/06/20 05:20 Microbiology Microbiology 01/03/20 Gram Stain - Final, Complete 01/03/20 Wound Culture - Final, Complete Staphylococcus Aureus 01/01/20 Blood Culture - Final, Complete NO GROWTH AFTER 5 DAYS 12/31/19 Gram Stain - Final, Complete 12/31/19 Wound Culture - Final, Complete Staphylococcus Aureus 12/31/19 Blood Culture - Final, Complete Staphylococcus Aureus 12/30/19 Blood Culture - Final, Complete Staphylococcus Aureus GME ATTESTATION ATTENDING NOTE I have personally evaluated and examined the patient. Discussed with resident/student regarding plan of care and agree with the above assessment and plan. Plans discussed with podiatry Dr. Rees. Plan for OR on Monday in attempt to stabelize foot. ADAM HILLMAN DO Jan 06, 2020 17:38 JULIO BORDEN MD Jan 06, 2020 17:57
[2020-01-06] MEDS: ASPIRIN 81 MG ENTERIC TAB PO SCH (20:44)
[2020-01-06] MEDS: BACLOFEN 10 MG TAB PO SCH (20:45)
[2020-01-06] MEDS: LATANOPROST 0.005% OPHTH SOLN 2.5 ML OU SCH (20:47)
--- NOTE | 2020-01-06 21:48 | IPN ---
DATE: 01/06/2020 INFECTIOUS DISEASE PROGRESS NOTE Aurelio seems to be doing fairly good. He is having surgery on Monday with Dr. Romano for incision and drainage (I and D) of the foot and stabilization. He has had no fever or chills, no nausea, vomiting, or diarrhea. He has chronic left hip pain. He still has a Wu catheter in place, states he cannot urinate in bed; he has to get up to the bathroom to urinate. On physical exam, awake, alert, in no acute distress. Heart: Normal S1, S2, irregular. No murmurs, rubs or gallops. Lungs are clear. No wheezes, rales or rhonchi. Abdomen: Soft, nontender, mildly obese. No hepatosplenomegaly. Skin: Has stage II ulcer at the sacral area, scaliness of the right foot with dry skin. Left forearm has a pruritic erythematous rash from allergy to tape. Extremities: +1 pitting edema with right foot open ulcer. It was not examined today as he has had his dressing changes, and he has pressure boots applied to both legs. LABORATORY DATA: White count 8.5 down from 15.9 three days ago, hemoglobin 9.8, hematocrit 34.4, platelets 329. Sodium 141, potassium 4, chloride 101, bicarbonate 33, BUN 16, creatinine 0.79, glucose 58, calcium 8.7. Serology: Hepatitis B and HIV and hepatitis C all negative. Blood cultures were positive for methicillin-sensitive Staphylococcus aureus (MSSA) on 12/30/2019 and 12/31/2019; 01/01/2020 were negative. Wound cultures were positive for MSSA. MEDICATIONS: - nafcillin 2 grams IV every 4 hours IMPRESSION: Acute osteomyelitis with abscess of the right foot with secondary MSSA bacteremia and sepsis, on IV nafcillin, doing better. Will repeat CBC, CRP, sedimentation rate tomorrow. Patient going to the operating room with Dr. Romano for incision and drainage and foot stabilization in the hope of preservation of the right foot. Atrial fibrillation with rapid ventricular response (RVR), followed by cardiology. Better ventricular response today with oral digoxin and diltiazem. Hematoma flank area, status post angioplasty, stable. PLAN: Peripherally inserted central catheter (PICC) line tomorrow will be scheduled. The patient will need at least 6 weeks of intravenous (IV) antibiotics from first negative blood culture, which was on 01/01/2020. End of treatment will be 02/12/2020. Surgery for incision and drainage (I and D) of the foot and stabilization on Monday. Triamcinolone cream to allergic contact dermatitis of the left forearm from tape.
[2020-01-07] VITALS (21 sets, daily range): BP systolic 113–164; BP diastolic 67–82; O2SAT 81–99
[2020-01-07] MEDS: TRIAMCINOLONE ACETONIDE 0.025 % 80 GM CREAM TOP SCH ×3 (00:22→21:00)
[2020-01-07] MEDS: NAFCILLIN SOD 2 GM in D5W MINI-BAG PLUS 50 ML IV SCH ×7 (00:23→23:30)
[2020-01-07 05:32] LABS: HEMATOCRIT 35.8 % (42.0-52.0); HEMOGLOBIN 10.4 g/dl (13.5-17.5); MEAN CORPUSCULAR HEMOGLOBIN 24.4 pg (27.0-33.0); MEAN CORPUSCULAR HGB CONC 29.1 g/dl (32.0-36.5); PLATELET COUNT, AUTOMATED 307 10^3/uL (150-450); RED BLOOD COUNT 4.26 10^6/uL (4.30-6.10); WHITE BLOOD COUNT 10.3 10^3/uL (4.0-10.0)
[2020-01-07] MEDS: SLF 3 ML SYR IV SCH ×3 (05:45→22:31)
[2020-01-07 05:53] LABS: BLOOD UREA NITROGEN 21 MG/DL (7-18); C REACTIVE PROTEIN QUANTITATIV 8.17 MG/DL (0.00-0.30); CALCIUM LEVEL 8.8 MG/DL (8.8-10.2); CARBON DIOXIDE LEVEL 37 MEQ/L (21-32); CHLORIDE LEVEL 100 MEQ/L (98-107); GLOMERULAR FILTRATION RATE > 60.0 (>49); GLUCOSE, FASTING 185 MG/DL (70-100); POTASSIUM SERUM 4.4 MEQ/L (3.5-5.1); SODIUM LEVEL 140 MEQ/L (136-145)
[2020-01-07] MEDS: SALMETEROL DISKUS 50MCG INHALER (SEREVENT) INH SCH ×2 (07:32→22:00)
[2020-01-07] MEDS: NYSTATIN 100,000 UNITS/GM TOPICAL PWD 15 GM TOP SCH ×2 (08:55→21:00)
[2020-01-07] MEDS: AMIODARONE 200 MG TAB (PACERONE) PO SCH ×2 (08:55→20:18)
[2020-01-07] MEDS: DULoxetine 30 MG CAP (CYMBALTA) PO SCH (08:55)
[2020-01-07] MEDS: GABAPENTIN 300 MG CAP PO SCH ×3 (08:55→20:18)
[2020-01-07] MEDS: DIGOXIN 0.125 MG TAB PO SCH (08:56)
[2020-01-07] MEDS: PANTOPRAZOLE 40MG TAB (PROTONIX) PO SCH (08:57)
[2020-01-07] MEDS: LEVEMIR (INSULIN DETEMIR) 1 UNITS/0.01ML SC SCH ×2 (08:58→21:00)
[2020-01-07] MEDS: HumaLOG INSULIN (NovoLOG) PER UNIT SC SCH ×4 (08:58→20:19)
[2020-01-07] MEDS: LACTIC ACID 12% LOTION 225 GM BTL EXT SCH (08:59)
[2020-01-07] MEDS: HEPARIN SOD (PORCINE) 5000UNITS/ML VIAL (J1644 PER 1000UNITS) SQ SCH ×2 (09:00→20:19)
[2020-01-07] MEDS: oxyCODONE 5MG TAB PO PRN ×2 (10:55→17:21)
--- NOTE | 2020-01-07 11:29 | IPNPDOC ---
Date Seen The patient was seen on 01/07/20. Progress Note SUBJECTIVE: Patient was seen and examined this morning. There have been no adverse events reported overnight. He is currently planned for OR tomorrow with Dr. Romano. He denies any chest pain or shortness of breath. He denies any increased pain from his baseline OBJECTIVE PHYSICAL EXAMINATION: VITAL SIGNS: Please see below. GENERAL: Awake, alert, and oriented. Appears in no acute distress. Lying comfortably in bed. HEENT: Atraumatic, normocephalic. Eyes are nonicteric. Trachea is midline. CARDIOVASCULAR: Irregularly irregular rhythm. Regular rate. No clicks rubs or murmurs RESPIRATORY: Clear vesicular breath sounds bilaterally. Slightly diminished in the bases. no wheezes, rhonchi, or rales ABDOMINAL: Soft, nondistended. Nontender. Normoactive bowel sounds SKIN: Stage 2 sacral pressure ulcer that appears clean without purulence EXTREMITIES: 1-2+ pitting edema in bilateral lower extremities. Right foot wound and left Achilles heel wound currently bandaged. Pressure boots applied NEUROLOGICAL: No focal neurological deficits. Resting tremor PSYCHOLOGICAL: Mood and affect appear appropriate LABORATORY DATA, IMAGING STUDIES, MICROBIOLOGY: Please see below. Echocardiogram: SEE REPORT DVT prophylaxis ordered?: mechanical ASSESSMENT AND PLAN: ASSESSMENT AND PLAN: Patient is a 64 year old male with a history of chronic atrial fibrillation and non-healing lower extremity ulcers who presented to [facility] as a transfer from [facility] with Atrial fibrillation with RVR 1. Sepsis 2/2 MSSA Bacteremia 2/2 Right lower extremity foot ulceration/osteomyelitis -Patient has MSSA bacteremia and right foot osteomyelitis. Continued on Nafcillin. He will likely need 6 weeks IV antibiotics unless foot is amputated. -Wound care recommendations per Dr. Powers -Patient currently scheduled in OR with Dr. Romano tomorrow. Goal of avoiding amputation if possible as patient relies on his right foot for weightbearing -Blood cultures negative on 12/31. He has received 7 days of antibiotics since negative cultures currently. Will need 6 weeks. PICC line to be placed today -Infectious Disease, Podiatry, and Advanced Wound Care Consult Placed. Recommendations and assistance appreciated. 2. Atrial Fibrillation with RVR -Continue patients current medications. He is well rate controlled at this time. Cardiology is following. Recommendations and assistance is appreciated -Patient is on Eliquis outpatient. Unfortunately he had developed a retroperitoneal hematoma and his anticoagulation is on hold. -Will need to discuss with cardiology plans for resumption of anticoagulation 3. Left Posterior Oblique Hematoma -Patient has a hematoma which from previous records appears to have been present since at least November according to previous medical records. -Hemoglobin has been stable. -Anticoagulation is on hold 4. Diabetes Mellitus Type 2 -Consistent Carb diet -Levemir -Sliding scale insulin coverage ACHS 5. Left Femoral Head Collapse/avascular necrosis -This is a chronic problem. The patient is aware. He will follow-up outpatient for management of this 6. DVT Prophylaxis -Mechanical DISPOSITION: Patient is planned for OR tomorrow. NPO after midnight. PICC line to be placed today. He will need terminal press operator placement given his wives inability to care for him at home VS, I&O, 24H, Fishbone Vital Signs/I&O Vital Signs Date Time Temp Pulse Resp B/P (MAP) Pulse Ox O2 Delivery O2 Flow Rate FiO2 01/07/20 10:55 20 01/07/20 08:56 90 01/07/20 08:00 97.6 162/72 (102) 96 Room Air 01/07/20 06:00 2.0 I&O- Last 24 Hours up to 6 AM 01/07/20 06:00 Intake Total 970 ml Output Total 2200 ml Balance -1230 ml Laboratory Data 24H LABS Laboratory Tests 2 01/06/20 12:18: Bedside Glucose (Misc Panel) 237H 01/06/20 17:25: Bedside Glucose (Misc Panel) 270H 01/06/20 20:24: Bedside Glucose (Misc Panel) 247H 01/07/20 05:09: Nucleated Red Blood Cells % (auto) 0.0, Anion Gap 3L, Glomerular Filtration Rate > 60.0, Calcium Level 8.8, C-Reactive Protein, Quantitative 8.17H CBC/BMP Laboratory Tests 01/07/20 05:09 Microbiology Microbiology 01/07/20 Blood Culture, Received Pending 01/07/20 Respiratory Virus Panel (PCR) (LUIS A) - Final, Complete 01/03/20 Gram Stain - Final, Complete 01/03/20 Wound Culture - Final, Complete Staphylococcus Aureus 01/01/20 Blood Culture - Final, Complete NO GROWTH AFTER 5 DAYS 12/31/19 Gram Stain - Final, Complete 12/31/19 Wound Culture - Final, Complete Staphylococcus Aureus 12/31/19 Blood Culture - Final, Complete Staphylococcus Aureus 12/30/19 Blood Culture - Final, Complete Staphylococcus Aureus ATTENDING NOTE I have personally evaluated and examined the patient. Discussed with resident/student regarding plan of care and agree with the above assessment and plan. ADAM HILLMAN DO Jan 07, 2020 11:29 JULIO BORDEN MD Jan 07, 2020 18:32
[2020-01-07] MEDS ORDERED: LIDOCAINE 1% MDV 20ML VIAL As Ordered ONE (13:33)
[2020-01-07] MEDS: SODIUM CHLORIDE 0.9% INJ 10 ML SYR IV SCH (18:35)
[2020-01-07] MEDS: BACLOFEN 10 MG TAB PO SCH (20:18)
[2020-01-07] MEDS: ASPIRIN 81 MG ENTERIC TAB PO SCH (20:18)
[2020-01-07] MEDS: LATANOPROST 0.005% OPHTH SOLN 2.5 ML OU SCH (21:00)
[2020-01-08] VITALS (17 sets, daily range): BP systolic 137–174; BP diastolic 68–79; O2SAT 95–99
[2020-01-08] MEDS: NAFCILLIN SOD 2 GM in D5W MINI-BAG PLUS 50 ML IV SCH ×5 (03:53→20:40)
[2020-01-08 05:32] LABS: HEMATOCRIT 35.5 % (42.0-52.0); HEMOGLOBIN 10.1 g/dl (13.5-17.5); MEAN CORPUSCULAR HGB CONC 28.5 g/dl (32.0-36.5); MEAN CORPUSCULAR VOLUME 84.5 fl (80.0-96.0); PLATELET COUNT, AUTOMATED 271 10^3/uL (150-450); WHITE BLOOD COUNT 10.9 10^3/uL (4.0-10.0)
[2020-01-08] MEDS: SODIUM CHLORIDE 0.9% INJ 10 ML SYR IV SCH ×2 (05:46→18:03)
[2020-01-08] MEDS: SLF 3 ML SYR IV SCH ×3 (05:46→22:13)
[2020-01-08] MEDS: SALMETEROL DISKUS 50MCG INHALER (SEREVENT) INH SCH ×2 (07:08→19:41)
[2020-01-08] MEDS: HEPARIN SOD (PORCINE) 5000UNITS/ML VIAL (J1644 PER 1000UNITS) SQ SCH ×2 (07:22→20:43)
[2020-01-08 07:30] LABS: BLOOD UREA NITROGEN 31 MG/DL (7-18); CARBON DIOXIDE LEVEL 35 MEQ/L (21-32); CHLORIDE LEVEL 100 MEQ/L (98-107); GLOMERULAR FILTRATION RATE > 60.0 (>49); GLUCOSE, FASTING 184 MG/DL (70-100); POTASSIUM SERUM 4.5 MEQ/L (3.5-5.1); SODIUM LEVEL 140 MEQ/L (136-145)
[2020-01-08] MEDS: LEVEMIR (INSULIN DETEMIR) 1 UNITS/0.01ML SC SCH ×2 (07:48→20:43)
[2020-01-08] MEDS: HumaLOG INSULIN (NovoLOG) PER UNIT SC SCH ×4 (08:06→20:42)
[2020-01-08] MEDS: GABAPENTIN 300 MG CAP PO SCH ×3 (08:07→20:42)
[2020-01-08] MEDS: NYSTATIN 100,000 UNITS/GM TOPICAL PWD 15 GM TOP SCH ×2 (08:07→20:47)
[2020-01-08] MEDS: DULoxetine 30 MG CAP (CYMBALTA) PO SCH (08:07)
[2020-01-08] MEDS: PANTOPRAZOLE 40MG TAB (PROTONIX) PO SCH (08:07)
[2020-01-08] MEDS: DIGOXIN 0.125 MG TAB PO SCH (08:07)
[2020-01-08] MEDS: AMIODARONE 200 MG TAB (PACERONE) PO SCH ×2 (08:07→20:42)
[2020-01-08] MEDS: TRIAMCINOLONE ACETONIDE 0.025 % 80 GM CREAM TOP SCH ×2 (08:08→20:47)
[2020-01-08] MEDS: LACTIC ACID 12% LOTION 225 GM BTL EXT SCH (08:09)
[2020-01-08] MEDS: oxyCODONE 5MG TAB PO PRN ×2 (08:21→18:08)
[2020-01-08] MEDS: SODIUM CHLORIDE 0.9% INJ 10 ML SYR IV PRN ×2 (09:22→12:39)
--- NOTE | 2020-01-08 11:25 | IPNPDOC ---
Date Seen The patient was seen on 01/08/20. Progress Note SUBJECTIVE: Patient was seen and examined this morning. He currently denies any new complaints. There have been no adverse events reported overnight. He has had a PICC line placed yesterday. He is currently planned for OR with Dr. Romano at 1pm. Patient denies any chest pain or shortness of breath OBJECTIVE PHYSICAL EXAMINATION: VITAL SIGNS: Please see below. GENERAL: Awake, alert, and oriented. Appears in no acute distress. Lying comfortably in bed. HEENT: Atraumatic, normocephalic. Eyes are nonicteric. Trachea is midline. CARDIOVASCULAR: Irregularly irregular rhythm. Regular rate. No clicks rubs or murmurs RESPIRATORY: Clear vesicular breath sounds bilaterally. Slightly diminished in the bases. no wheezes, rhonchi, or rales ABDOMINAL: Soft, nondistended. Nontender. Normoactive bowel sounds SKIN: Stage 2 sacral pressure ulcer that appears clean without purulence EXTREMITIES: 1-2+ pitting edema in bilateral lower extremities. Right foot wound and left Achilles heel wound currently bandaged. Pressure boots applied NEUROLOGICAL: No focal neurological deficits. Resting tremor PSYCHOLOGICAL: Mood and affect appear appropriate LABORATORY DATA, IMAGING STUDIES, MICROBIOLOGY: Please see below. Echocardiogram: SEE REPORT DVT prophylaxis ordered?: mechanical ASSESSMENT AND PLAN: ASSESSMENT AND PLAN: Patient is a 64 year old male with a history of chronic atrial fibrillation and non-healing lower extremity ulcers who presented to [facility] as a transfer from [facility] with Atrial fibrillation with RVR 1. Sepsis 2/2 MSSA Bacteremia 2/2 Right lower extremity foot ulceration/osteomyelitis -Patient has MSSA bacteremia and right foot osteomyelitis. Continued on Nafcillin. He will likely need 6 weeks IV antibiotics unless foot is amputated. -Wound care recommendations per Dr. Powers -PICC line placed yesterday for buttermaker continuous churn antibiotic therapy. -Patient to go to OR today at 1pm per Dr. Romano. Goal of restabilization of patients right foot as to avoid amputation if possible -Blood cultures negative on 12/31. He has received 8 days of antibiotics since negative cultures currently. Will need [address] weeks[address] line in place -Infectious Disease, Podiatry, and Advanced Wound Care Consult Placed. Recommendations and assistance appreciated. 2. Atrial Fibrillation with RVR -Continue patients current medications. He is well rate controlled at this time. Cardiology is following. Recommendations and assistance is appreciated -Patient is on Eliquis outpatient. Unfortunately he had developed a retroperitoneal hematoma and his anticoagulation is on hold. -Will likely need to resume Anticoagulation on discharge as hematoma is resolving 3. Left Posterior Oblique Hematoma -Patient has a hematoma which from previous records appears to have been present since at least November according to previous medical records. -Hemoglobin has been stable. -Anticoagulation is on hold 4. Diabetes Mellitus Type 2 -Consistent Carb diet -Levemir -Sliding scale insulin coverage ACHS 5. Left Femoral Head Collapse/avascular necrosis -This is a chronic problem. The patient is aware. He will follow-up outpatient for management of this 6. DVT Prophylaxis -Mechanical DISPOSITION: Patient planned for OR today. Plan is to avoid amputation of the right foot if possible. If that is the case he will need 6 weeks of Nafcillin. PICC line has been placed. He will likely need buttermaker continuous churn placement VS, I&O, 24H, Fishbone Vital Signs/I&O Vital Signs Date Time Temp Pulse Resp B/P (MAP) Pulse Ox O2 Delivery O2 Flow Rate FiO2 01/08/20 10:00 98 Nasal Cannula 2.0 01/08/20 08:51 18 01/08/20 08:07 86 01/08/20 08:00 97.1 170/78 (108) I&O- Last 24 Hours up to 6 AM 01/08/20 06:00 Intake Total 1210 ml Output Total 1500 ml Balance -290 ml Laboratory Data 24H LABS Laboratory Tests 2 01/07/20 12:09: Bedside Glucose (Misc Panel) 159H 01/07/20 14:37: Bedside Glucose (Misc Panel) 139H 01/07/20 17:12: Bedside Glucose (Misc Panel) 104 01/07/20 20:16: Bedside Glucose (Misc Panel) 140H 01/08/20 05:15: Nucleated Red Blood Cells % (auto) 0.0 01/08/20 06:47: Anion Gap 5L, Glomerular Filtration Rate > 60.0, Calcium Level 9.0 CBC/BMP Laboratory Tests 01/08/20 05:15 01/08/20 06:47 Microbiology Microbiology 01/07/20 Blood Culture - Preliminary, Resulted No growth after 24 hours . All specim... 01/07/20 Respiratory Virus Panel (PCR) (LUIS A) - Final, Complete 01/03/20 Gram Stain - Final, Complete 01/03/20 Wound Culture - Final, Complete Staphylococcus Aureus 01/01/20 Blood Culture - Final, Complete NO GROWTH AFTER 5 DAYS 12/31/19 Gram Stain - Final, Complete 12/31/19 Wound Culture - Final, Complete Staphylococcus Aureus 12/31/19 Blood Culture - Final, Complete Staphylococcus Aureus 12/30/19 Blood Culture - Final, Complete Staphylococcus Aureus GME ATTESTATION I have personally evaluated and examined the patient. Discussed with resident/student regarding plan of care and agree with the above assessment and plan. ADAM HILLMAN DO Jan 08, 2020 10:53 JULIO BORDEN MD Jan 08, 2020 18:13
[2020-01-08] MEDS ORDERED: propofoL 500 MG/50 ML VIAL As Ordered ONE (12:44)
[2020-01-08] MEDS ORDERED: fentaNYL 100 MCG/2 ML INJECTION (J3010) As Ordered ONE (12:44)
[2020-01-08] MEDS ORDERED: MIDAZOLAM INJ 2MG/2ML VIAL (J2250 PER 1MG) As Ordered ONE (12:45)
[2020-01-08] MEDS ORDERED: ONDANSETRON 4MG/2ML VIAL As Ordered ONE (12:45)
[2020-01-08] MEDS ORDERED: LIDOCAINE 1% MDV 20ML VIAL As Ordered ONE (14:15)
[2020-01-08] MEDS ORDERED: BUPIVACAINE HCL 0.5% 10ML VIAL As Ordered ONE (14:15)
[2020-01-08] MEDS ORDERED: dexameTHASONE 4 MG/ML 1ML VIAL (J1100 PER 1MG) As Ordered ONE (14:16)
[2020-01-08] MEDS ORDERED: VANCOMYCIN 500MG/10ML VIAL As Ordered ONE (14:17)
[2020-01-08] MEDS ORDERED: KETAMINE HCL 200 MG/20 ML VIAL As Ordered ONE (14:36)
[2020-01-08] MEDS ORDERED: METOCLOPRAMIDE INJ 10MG/2ML VIAL (J2765 PER 1) IV PRN (16:30)
[2020-01-08] MEDS ORDERED: ONDANSETRON 4MG/2ML VIAL IV PRN (16:30)
[2020-01-08] MEDS ORDERED: LR 1,000 ML IV SCH (16:30)
[2020-01-08] MEDS ORDERED: PERCOCET 5MG/325MG TAB PO PRN (16:30)
[2020-01-08] MEDS ORDERED: fentaNYL 100 MCG/2 ML INJECTION (J3010) IV PRN (16:30)
--- NOTE | 2020-01-08 19:56 | REP ---
PICC line insertion under ultrasound guidance. The procedure was performed by KALE Fair, under the direct supervision of Dr. Meza. The risks and benefits of the procedure were explained to the patient and informed consent was obtained both verbally and written. Directly prior to the start of the procedure, a formal timeout was completed in the procedure room. The right basilic vein was localized using ultrasound guidance. The skin was prepped and draped in the sterile fashion. Using ultrasound guidance the right basilic vein was cannulated and a 0.018 guidewire was inserted and advanced to the SVC using fluoroscopic guidance. The needle was removed and a 4.5 [place] dilator and peel-away sheath was inserted over the guidewire. A 4.5 [place] single lumen catheter was cut to the length of 40 cm. The dilator was removed and the catheter was inserted over the guide wire with the tip ending in the SVC. The peel-away sheath was removed and the catheter was flushed with heparinized saline as per hospital protocol. The catheter was affixed to the skin and a sterile dressing was applied. The patient tolerated the procedure well and there were no immediate complications. 0.2 minutes of fluoroscopy time was utilized for this procedure. Some fluoroscopic images are performed with last image hold technology. These images require no additional radiation. Reviewed by KALE Swanson 01/07/2020 04:49 P Electronically Signed by Luther Meza MD 01/08/2020 07:47 P
[2020-01-08] MEDS: ASPIRIN 81 MG ENTERIC TAB PO SCH (20:42)
[2020-01-08] MEDS: BACLOFEN 10 MG TAB PO SCH (20:42)
[2020-01-08] MEDS: LATANOPROST 0.005% OPHTH SOLN 2.5 ML OU SCH (20:47)
[2020-01-09] VITALS (7 sets, daily range): BP systolic 131–150; BP diastolic 59–71; O2SAT 94–98
[2020-01-09] MEDS: NAFCILLIN SOD 2 GM in D5W MINI-BAG PLUS 50 ML IV SCH ×6 (00:58→20:55)
[2020-01-09] MEDS: SODIUM CHLORIDE 0.9% INJ 10 ML SYR IV SCH ×2 (05:11→17:16)
[2020-01-09] MEDS: SLF 3 ML SYR IV SCH ×3 (05:12→20:59)
[2020-01-09 06:08] LABS: HEMATOCRIT 32.3 % (42.0-52.0); MEAN CORPUSCULAR HEMOGLOBIN 23.7 pg (27.0-33.0); MEAN CORPUSCULAR HGB CONC 27.9 g/dl (32.0-36.5); MEAN CORPUSCULAR VOLUME 85.2 fl (80.0-96.0); PLATELET COUNT, AUTOMATED 242 10^3/uL (150-450); RED BLOOD COUNT 3.79 10^6/uL (4.30-6.10); WHITE BLOOD COUNT 8.7 10^3/uL (4.0-10.0)
[2020-01-09 06:31] LABS: BLOOD UREA NITROGEN 27 MG/DL (7-18); CALCIUM LEVEL 8.8 MG/DL (8.8-10.2); CARBON DIOXIDE LEVEL 35 MEQ/L (21-32); CHLORIDE LEVEL 103 MEQ/L (98-107); CREATININE FOR GFR 1.08 MG/DL (0.70-1.30); GLOMERULAR FILTRATION RATE > 60.0 (>49); GLUCOSE, FASTING 183 MG/DL (70-100); POTASSIUM SERUM 3.9 MEQ/L (3.5-5.1); SODIUM LEVEL 139 MEQ/L (136-145)
[2020-01-09] MEDS: SALMETEROL DISKUS 50MCG INHALER (SEREVENT) INH SCH ×2 (07:22→19:29)
[2020-01-09] MEDS: HumaLOG INSULIN (NovoLOG) PER UNIT SC SCH ×4 (09:48→20:56)
[2020-01-09] MEDS: LEVEMIR (INSULIN DETEMIR) 1 UNITS/0.01ML SC SCH ×2 (09:48→20:56)
[2020-01-09] MEDS: HEPARIN SOD (PORCINE) 5000UNITS/ML VIAL (J1644 PER 1000UNITS) SQ SCH ×2 (09:49→20:55)
[2020-01-09] MEDS: LACTIC ACID 12% LOTION 225 GM BTL EXT SCH (09:49)
[2020-01-09] MEDS: TRIAMCINOLONE ACETONIDE 0.025 % 80 GM CREAM TOP SCH ×2 (09:49→20:58)
[2020-01-09] MEDS: fentaNYL 100 MCG/HR PATCH TOP SCH (09:50)
[2020-01-09] MEDS: NYSTATIN 100,000 UNITS/GM TOPICAL PWD 15 GM TOP SCH ×2 (09:51→20:58)
[2020-01-09] MEDS: DULoxetine 30 MG CAP (CYMBALTA) PO SCH (09:51)
[2020-01-09] MEDS: GABAPENTIN 300 MG CAP PO SCH ×3 (09:51→20:56)
[2020-01-09] MEDS: AMIODARONE 200 MG TAB (PACERONE) PO SCH ×2 (09:51→20:57)
[2020-01-09] MEDS: PANTOPRAZOLE 40MG TAB (PROTONIX) PO SCH (09:51)
[2020-01-09] MEDS: DIGOXIN 0.125 MG TAB PO SCH (09:52)
[2020-01-09] MEDS: oxyCODONE 5MG TAB PO PRN ×2 (09:58→20:58)
[2020-01-09] MEDS: SODIUM CHLORIDE 0.9% INJ 10 ML SYR IV PRN ×2 (11:24→14:27)
[2020-01-09] MEDS: FENTANYL REMOVAL DOCUMENTATION MISC XX SCH (11:27)
[2020-01-09] MEDS: MORPHINE 2 MG/ML 1ML VIAL (J2270) IV PRN (13:31)
--- NOTE | 2020-01-09 17:52 | IPNPDOC ---
Date Seen The patient was seen on 01/09/20. Progress Note SUBJECTIVE: Patient is status post Lisfranc repair and fusion of his right foot yesterday with Dr. Romano. Patient currently denies any pain and has no new complaints. Yesterday he was noted to have contact dermatitis on his arm around the PICC line site from adhesive tape used. Adhesive tapes have been removed. There have been no adverse events reported overnight OBJECTIVE PHYSICAL EXAMINATION: VITAL SIGNS: Please see below. GENERAL: Awake, alert, and oriented. Appears in no acute distress. Lying comfortably in bed. HEENT: Atraumatic, normocephalic. Eyes are nonicteric. Trachea is midline. CARDIOVASCULAR: Irregularly irregular rhythm. Regular rate. No clicks rubs or murmurs RESPIRATORY: Clear vesicular breath sounds bilaterally. Slightly diminished in the bases. no wheezes, rhonchi, or rales ABDOMINAL: Soft, nondistended. Nontender. Normoactive bowel sounds SKIN: Stage 2 sacral pressure ulcer that appears clean without purulence EXTREMITIES: 1-2+ pitting edema in bilateral lower extremities. Right foot wound and left Achilles heel wound currently bandaged. Pressure boots applied. PICC line in right arm with nonadhesive dressing applied. Rash consistent with contact dermatitis present on right arm around area where tape was applied to PICC line. Additional healing rash present on left forearm where adhesive tape was used previously NEUROLOGICAL: No focal neurological deficits. Resting tremor PSYCHOLOGICAL: Mood and affect appear appropriate LABORATORY DATA, IMAGING STUDIES, MICROBIOLOGY: Please see below. DVT prophylaxis ordered?: Heparin ASSESSMENT AND PLAN: ASSESSMENT AND PLAN: Patient is a 64 year old male with a history of chronic atrial fibrillation and non-healing lower extremity ulcers who presented to [facility] as a transfer from [facility] with Atrial fibrillation with RVR. He has right foot osteomyelitis and MSSA bacteremia started on Nafcillin. He has had a PICC line placed and has been taken to the OR yesterday by Dr. Romano 1. Sepsis 2/2 MSSA Bacteremia 2/2 Right lower extremity foot ulceration/osteomyelitis -Patient has MSSA bacteremia and right foot osteomyelitis. Continued on Nafcillin.Taken to OR yesterday by Dr. Romano. Currently no plans for amputation so patient will need to have 6 weeks full of antibiotics -Wound care recommendations per Dr. Powers -Blood cultures negative on 12/31. He has received 9 days of antibiotics since negative cultures currently. Will need 6 weeks total. PICC line in place -Infectious Disease, Podiatry, and Advanced Wound Care Consult Placed. Recommendations and assistance appreciated. 2. Atrial Fibrillation with RVR -Continue patients current medications. He is well rate controlled at this time. Cardiology is following. Recommendations and assistance is appreciated -Patient is on Eliquis outpatient. Unfortunately he had developed a retroperitoneal hematoma and his anticoagulation is on hold. -Will likely need to resume Anticoagulation on discharge as hematoma is resolving 3. Contact Dermatitis 2/2 Tape -Patient has developed a rash on his arms in areas where adhesive tapes have been applied. Tape should be avoided. Triamcinolone cream has been ordered to be applied to the patients rash on his right and left arm . 4. Left Posterior Oblique Hematoma -Patient has a hematoma which from previous records appears to have been present since at least November according to previous medical records. -Hemoglobin has been stable. 5. Diabetes Mellitus Type 2 -Consistent Carb diet -Levemir -Sliding scale insulin coverage ACHS 6. Left Femoral Head Collapse/avascular necrosis -This is a chronic problem. The patient is aware. [facility] 7. DVT Prophylaxis -Heparin DISPOSITION: Patient is s/p foot fusion. If he is not receiving amputation he will continue with 6 weeks of antibiotics VS, I&O, 24H, Fishbone Vital Signs/I&O Vital Signs Date Time Temp Pulse Resp B/P (MAP) Pulse Ox O2 Delivery O2 Flow Rate FiO2 01/09/20 14:00 97.1 96 17 150/68 (95) 98 Nasal Cannula 1.0 01/08/20 16:13 100 I&O- Last 24 Hours up to 6 AM 01/09/20 06:00 Intake Total 2590 ml Output Total 2250 ml Balance 340 ml Laboratory Data 24H LABS Laboratory Tests 2 01/08/20 20:08: Bedside Glucose (Misc Panel) 175H 01/09/20 05:25: Nucleated Red Blood Cells % (auto) 0.0, Anion Gap 1L, Glomerular Filtration Rate > 60.0, Calcium Level 8.8 01/09/20 11:39: Bedside Glucose (Misc Panel) 117H 01/09/20 16:20: Bedside Glucose (Misc Panel) 148H CBC/BMP Laboratory Tests 01/09/20 05:25 Microbiology Microbiology 01/07/20 Blood Culture - Preliminary, Resulted No Growth after 48 hours. All Specime... 01/07/20 Respiratory Virus Panel (PCR) (LUIS A) - Final, Complete 01/03/20 Gram Stain - Final, Complete 01/03/20 Wound Culture - Final, Complete Staphylococcus Aureus 01/01/20 Blood Culture - Final, Complete NO GROWTH AFTER 5 DAYS 12/31/19 Gram Stain - Final, Complete 12/31/19 Wound Culture - Final, Complete Staphylococcus Aureus 12/31/19 Blood Culture - Final, Complete Staphylococcus Aureus 12/30/19 Blood Culture - Final, Complete Staphylococcus Aureus GME ATTESTATION I have personally evaluated and examined the patient. Discussed with resident/student regarding plan of care and agree with the above assessment and plan. ADAM HILLMAN DO Jan 09, 2020 17:52 JULIO BORDEN MD Jan 10, 2020 08:16
[2020-01-09] MEDS: MIRALAX *UNIT DOSE* 17GM PACKET PO SCH (18:22)
--- NOTE | 2020-01-09 18:25 | HPE ---
DATE OF ADMISSION: 01/09/2020 Patient seen and examined. Denies any new complaints. States not much pain in his foot. Vital signs are reviewed. He has been afebrile. LABORATORY DATA: White blood cell count 8.7, hemoglobin 9. Lower extremity examination: Dressings are clean, dry, and intact. ASSESSMENT: A 64-year-old male with osteomyelitis, unstable Charcot joint status post midfoot fusion with external fixation. PLAN: Leave wound dressings on the right foot alone. Will change on Monday. She is to be nonweightbearing to this foot. Can continue left foot wound dressings as ordered by Dr. Powers. Patient will ultimately be discharged to a fdc. He will not be able to be discharged home. He is unable to care for his wounds or keep nonweightbearing. He also has sacral wounds, which will need turning and offloading. Most likely will see Monday.
--- NOTE | 2020-01-09 18:45 | IPN ---
DATE: 01/09/2020 Aurelio seems to be doing well. He has mild right foot pain but mostly he has left hip pain. The patient had surgery by Dr. Romano. He had an external fixation done yesterday. LABORATORY DATA: White count 8.7, hemoglobin 9, hematocrit 32.3, platelets 242. Sodium 139, potassium 3.9, chloride 103, bicarbonate 35, BUN 27, creatinine 1.08, glucose 183, calcium 8.8, CRP 8.17, down from 14.9. Blood cultures 12/30/2019 and 12/31/2019 were positive for methicillin-sensitive Staphylococcus aureus (MSSA). Right foot culture was positive on 12/31/2019 and 01/03/2020 for MSSA as well. Blood cultures were negative on 01/01/2020 and 01/07/2020. The patient is currently on IV nafcillin 2 grams every 4 hours, doing well. On physical exam, temperature is 97.1, pulse 96, respirations 17, blood pressure 150/68, oxygen saturation (O2) sat 98% on 1 liter nasal cannula. Heart: Normal S1, S2 with a systolic ejection murmur 2/6 at left upper sternal border. Lungs are clear anteriorly. Abdomen is soft, mildly distended, nontender. Extremities: No edema. I did not open any of his dressings. He has a large ulceration on his left calf, which is clean with granulation tissue. Right foot has an external fixator. IMPRESSION: MSSA bacteremia with sepsis from right foot abscess with acute osteomyelitis. The patient is on IV nafcillin, doing well. He will need 6 weeks of IV antibiotics with planned therapy to continue until 02/12/2020. PLAN: The patient will most likely need rehabilitation or mcc placement as he cannot weight-bear on the right foot. He could be switched to IV cefazolin 2 grams every 8 hours if problem with every 4 hour infusion. I will be out of town until 01/20/2020. Monitor CBC, CRP, ESR, basic profile weekly.
[2020-01-09] MEDS: BACLOFEN 10 MG TAB PO SCH (20:56)
[2020-01-09] MEDS: ASPIRIN 81 MG ENTERIC TAB PO SCH (20:57)
[2020-01-09] MEDS: LATANOPROST 0.005% OPHTH SOLN 2.5 ML OU SCH (20:58)
[2020-01-10] VITALS (7 sets, daily range): BP systolic 125–156; BP diastolic 58–77; O2SAT 96
[2020-01-10] MEDS: NAFCILLIN SOD 2 GM in D5W MINI-BAG PLUS 50 ML IV SCH ×7 (00:08→23:52)
[2020-01-10] MEDS: SLF 3 ML SYR IV SCH ×3 (05:46→20:26)
[2020-01-10] MEDS: SODIUM CHLORIDE 0.9% INJ 10 ML SYR IV SCH ×2 (05:49→17:08)
[2020-01-10 06:23] LABS: HEMATOCRIT 33.4 % (42.0-52.0); HEMOGLOBIN 9.2 g/dl (13.5-17.5); MEAN CORPUSCULAR HEMOGLOBIN 23.9 pg (27.0-33.0); MEAN CORPUSCULAR HGB CONC 27.5 g/dl (32.0-36.5); MEAN CORPUSCULAR VOLUME 86.8 fl (80.0-96.0); PLATELET COUNT, AUTOMATED 238 10^3/uL (150-450); RED BLOOD COUNT 3.85 10^6/uL (4.30-6.10); WHITE BLOOD COUNT 8.2 10^3/uL (4.0-10.0)
[2020-01-10 06:41] LABS: BLOOD UREA NITROGEN 23 MG/DL (7-18); CARBON DIOXIDE LEVEL 36 MEQ/L (21-32); CHLORIDE LEVEL 104 MEQ/L (98-107); CREATININE FOR GFR 0.95 MG/DL (0.70-1.30); GLOMERULAR FILTRATION RATE > 60.0 (>49); GLUCOSE, FASTING 70 MG/DL (70-100); POTASSIUM SERUM 3.9 MEQ/L (3.5-5.1); SODIUM LEVEL 145 MEQ/L (136-145)
[2020-01-10] MEDS: HumaLOG INSULIN (NovoLOG) PER UNIT SC SCH ×4 (07:30→20:28)
[2020-01-10] MEDS: SALMETEROL DISKUS 50MCG INHALER (SEREVENT) INH SCH ×2 (07:36→20:09)
[2020-01-10] MEDS: LEVEMIR (INSULIN DETEMIR) 1 UNITS/0.01ML SC SCH ×2 (10:44→20:27)
[2020-01-10] MEDS: HEPARIN SOD (PORCINE) 5000UNITS/ML VIAL (J1644 PER 1000UNITS) SQ SCH ×2 (10:45→20:28)
[2020-01-10] MEDS: LACTIC ACID 12% LOTION 225 GM BTL EXT SCH (10:45)
[2020-01-10] MEDS: TRIAMCINOLONE ACETONIDE 0.025 % 80 GM CREAM TOP SCH ×2 (10:46→20:26)
[2020-01-10] MEDS: NYSTATIN 100,000 UNITS/GM TOPICAL PWD 15 GM TOP SCH ×2 (10:46→20:26)
[2020-01-10] MEDS: MIRALAX *UNIT DOSE* 17GM PACKET PO SCH (10:47)
[2020-01-10] MEDS: GABAPENTIN 300 MG CAP PO SCH ×3 (10:47→20:28)
[2020-01-10] MEDS: DIGOXIN 0.125 MG TAB PO SCH (10:47)
[2020-01-10] MEDS: DULoxetine 30 MG CAP (CYMBALTA) PO SCH (10:48)
[2020-01-10] MEDS: AMIODARONE 200 MG TAB (PACERONE) PO SCH ×2 (10:48→20:28)
[2020-01-10] MEDS: PANTOPRAZOLE 40MG TAB (PROTONIX) PO SCH (10:48)
[2020-01-10] MEDS: oxyCODONE 5MG TAB PO PRN ×2 (10:49→17:09)
--- NOTE | 2020-01-10 11:16 | IPNPDOC ---
Date Seen The patient was seen on 01/10/20. Progress Note SUBJECTIVE: Patient was seen and examined this morning. He currently has no new complaints. There have been no adverse events reported overnight. He is s/p right foot fusion and internal fixation. Plan at this time is to continue 6 weeks of antibiotic therapy. He denies any chest pain or shortness of breath OBJECTIVE PHYSICAL EXAMINATION: VITAL SIGNS: Please see below. GENERAL: Awake, alert, and oriented. Appears in no acute distress. Lying comfortably in bed. HEENT: Atraumatic, normocephalic. Eyes are nonicteric. Trachea is midline. CARDIOVASCULAR: Irregularly irregular rhythm. Regular rate. 2/6 systolic ejection murmur. No clicks rubs or murmurs RESPIRATORY: Clear vesicular breath sounds bilaterally. Slightly diminished in the bases. no wheezes, rhonchi, or rales ABDOMINAL: Soft, nondistended. Nontender. Normoactive bowel sounds SKIN: Stage 2 sacral pressure ulcer that appears clean without purulence EXTREMITIES: 1-2+ pitting edema in bilateral lower extremities. Right foot wound and left Achilles heel wound currently bandaged. Pressure boots applied. PICC line in right arm with nonadhesive dressing applied. NEUROLOGICAL: No focal neurological deficits. Resting tremor PSYCHOLOGICAL: Mood and affect appear appropriate LABORATORY DATA, IMAGING STUDIES, MICROBIOLOGY: Please see below. Echocardiogram: SEE REPORT DVT prophylaxis ordered?: Heparin ASSESSMENT AND PLAN: Patient is a 64 year old male with a history of chronic atrial fibrillation and non-healing lower extremity ulcers who presented to [facility] as a transfer from [facility] with Atrial fibrillation with RVR. He has right foot osteomyelitis and MSSA bacteremia started on Nafcillin. He has had a PICC line placed and has been taken to the OR by Dr. Romano for right foot fusion. He is currently continued on Nafcillin for 6 weeks of therapy PROBLEMS: 1. Sepsis 2/2 MSSA Bacteremia 2/2 Right lower extremity foot ulceration/osteomyelitis -Patient has MSSA bacteremia and right foot osteomyelitis. Continued on Nafcillin.Taken to OR yesterday by Dr. Romano. Currently no plans for amputation so patient will need to have 6 weeks full of antibiotics -Patient is followed by Infectious Disease. Plans to continue IV antibiotics until 02/12/2020. Recommendations to change to Cefazolin if there is difficulty with q4h infusions of Nafcillin at snf -Wound care recommendations per Dr. Powers -Infectious Disease, Podiatry, and Advanced Wound Care Consult Placed. Recommendations and assistance appreciated. 2. Osteomyeltis of Right foot -Patient has osteomyelitis of his right foot. No plans for amputation at this time. He has had fusion of his right foot with Dr. Romano. Currently on Nafcillin. He has PICC line placed. Patient is followed by Infectious Disease. Recommendations and assistance are appreciated. Patient will continue IV antibiotics until 02/12/2020. -Currently on Nafcillin. If difficulty with q4h infusions at snf then patient will be changed to cefazolin at that time -Weekly BMP, CBC, CRP, ESR 3. Atrial Fibrillation with RVR -Continue patients current medications. He is well rate controlled at this time. Cardiology is following. Recommendations and assistance is appreciated -Patient is on Eliquis outpatient. Unfortunately he had developed a retroperitoneal hematoma and his anticoagulation is on hold. -Will likely need to resume Anticoagulation on discharge as hematoma is resolving -D/C remote telemetry as patient is rate controlled at this point in time 4. Contact Dermatitis 2/2 Tape -Patient has developed a rash on his arms in areas where adhesive tapes have been applied. Tape should be avoided. Triamcinolone cream has been ordered to be applied to the patients rash on his right and left arm . 5. Sacral Ulcers -Stage 1-2 sacral ulcers. No changes from previous exam. Appear clean. Continue with turning and offloading 6. Left Posterior Oblique Hematoma -Patient has a hematoma which from previous records appears to have been present since at least November according to previous medical records. -Hemoglobin has been stable. 7. Diabetes Mellitus Type 2 -Consistent Carb diet -Levemir -Sliding scale insulin coverage ACHS 8. Left Femoral Head Collapse/avascular necrosis -This is a chronic problem. The patient is aware. He will follow-up outpatient for management for this 9. DVT Prophylaxis -Heparin DISPOSITION: Patient is ultimately pending placement. Right foot dressings to be changed on Monday per Dr. Romano. He is currently to remain non-weightbearing. VS, I&O, 24H, Fishbone Vital Signs/I&O Vital Signs Date Time Temp Pulse Resp B/P (MAP) Pulse Ox O2 Delivery O2 Flow Rate FiO2 01/10/20 06:00 98.3 79 19 125/58 (80) 98 Nasal Cannula 1.0 01/08/20 16:13 100 I&O- Last 24 Hours up to 6 AM 01/10/20 06:00 Intake Total 2160 ml Output Total 2200 ml Balance -40 ml Laboratory Data 24H LABS Laboratory Tests 2 01/09/20 11:39: Bedside Glucose (Misc Panel) 117H 01/09/20 16:20: Bedside Glucose (Misc Panel) 148H 01/09/20 20:18: Bedside Glucose (Misc Panel) 239H 01/10/20 05:32: Nucleated Red Blood Cells % (auto) 0.0, Anion Gap 5L, Glomerular Filtration Rate > 60.0, Calcium Level 9.0 CBC/BMP Laboratory Tests 01/10/20 05:32 Microbiology Microbiology 01/07/20 Blood Culture - Preliminary, Resulted No Growth after 72 hours. All specime... 01/07/20 Respiratory Virus Panel (PCR) (LUIS A) - Final, Complete 01/03/20 Gram Stain - Final, Complete 01/03/20 Wound Culture - Final, Complete Staphylococcus Aureus 01/01/20 Blood Culture - Final, Complete NO GROWTH AFTER 5 DAYS 12/31/19 Gram Stain - Final, Complete 12/31/19 Wound Culture - Final, Complete Staphylococcus Aureus 12/31/19 Blood Culture - Final, Complete Staphylococcus Aureus GME ATTESTATION I have personally evaluated and examined the patient. Discussed with resident/student regarding plan of care and agree with the above assessment and plan. ADAM HILLMAN DO Jan 10, 2020 11:16 JULIO BORDEN MD Jan 10, 2020 16:05
[2020-01-10] MEDS: SODIUM CHLORIDE 0.9% INJ 10 ML SYR IV PRN (14:53)
[2020-01-10] MEDS: FENTANYL REMOVAL DOCUMENTATION MISC XX SCH (18:49)
[2020-01-10] MEDS: fentaNYL 100 MCG/HR PATCH TOP SCH (19:28)
[2020-01-10] MEDS: LATANOPROST 0.005% OPHTH SOLN 2.5 ML OU SCH (20:25)
[2020-01-10] MEDS: ASPIRIN 81 MG ENTERIC TAB PO SCH (20:28)
[2020-01-10] MEDS: BACLOFEN 10 MG TAB PO SCH (20:28)
[2020-01-11] VITALS (8 sets, daily range): BP systolic 144–176; BP diastolic 54–72; O2SAT 98–100
[2020-01-11] MEDS: NAFCILLIN SOD 2 GM in D5W MINI-BAG PLUS 50 ML IV SCH ×6 (04:13→23:55)
[2020-01-11] MEDS: SODIUM CHLORIDE 0.9% INJ 10 ML SYR IV SCH ×2 (05:11→18:34)
[2020-01-11] MEDS: SALMETEROL DISKUS 50MCG INHALER (SEREVENT) INH SCH ×2 (07:24→20:18)
[2020-01-11] MEDS: HumaLOG INSULIN (NovoLOG) PER UNIT SC SCH ×4 (08:26→20:54)
[2020-01-11] MEDS: MIRALAX *UNIT DOSE* 17GM PACKET PO SCH (08:27)
[2020-01-11] MEDS: GABAPENTIN 300 MG CAP PO SCH ×3 (08:27→21:29)
[2020-01-11] MEDS: NYSTATIN 100,000 UNITS/GM TOPICAL PWD 15 GM TOP SCH ×2 (08:27→21:32)
[2020-01-11] MEDS: LEVEMIR (INSULIN DETEMIR) 1 UNITS/0.01ML SC SCH ×2 (08:27→21:30)
[2020-01-11] MEDS: DIGOXIN 0.125 MG TAB PO SCH (08:28)
[2020-01-11] MEDS: HEPARIN SOD (PORCINE) 5000UNITS/ML VIAL (J1644 PER 1000UNITS) SQ SCH ×2 (08:28→21:29)
[2020-01-11] MEDS: DULoxetine 30 MG CAP (CYMBALTA) PO SCH (08:28)
[2020-01-11] MEDS: AMIODARONE 200 MG TAB (PACERONE) PO SCH ×2 (08:28→21:29)
[2020-01-11] MEDS: PANTOPRAZOLE 40MG TAB (PROTONIX) PO SCH (08:28)
[2020-01-11] MEDS: LACTIC ACID 12% LOTION 225 GM BTL EXT SCH (08:29)
[2020-01-11] MEDS: TRIAMCINOLONE ACETONIDE 0.025 % 80 GM CREAM TOP SCH ×2 (08:29→21:32)
[2020-01-11] MEDS: SODIUM CHLORIDE 0.9% INJ 10 ML SYR IV PRN ×2 (10:33→13:47)
--- NOTE | 2020-01-11 10:51 | IPNPDOC ---
Date Seen The patient was seen on 01/11/20. Progress Note SUBJECTIVE: Patient was seen and examined this morning. There have been no adverse events reported overnight. The patient has continued pain in his left hip. He does have some constipation however does have prn bowel regimen ordered. OBJECTIVE PHYSICAL EXAMINATION: VITAL SIGNS: Please see below. GENERAL: Awake, alert, and oriented. Appears in no acute distress. Lying comfortably in bed. HEENT: Atraumatic, normocephalic. Eyes are nonicteric. Trachea is midline. CARDIOVASCULAR: Irregularly irregular rhythm. Regular rate. No clicks rubs or murmurs RESPIRATORY: Clear vesicular breath sounds bilaterally. Slightly diminished in the bases. no wheezes, rhonchi, or rales ABDOMINAL: Soft, nondistended. Nontender. Normoactive bowel sounds SKIN: Stage 2 sacral pressure ulcer that appears clean without purulence EXTREMITIES: 1-2+ pitting edema in bilateral lower extremities. Right foot wound and left Achilles heel wound currently bandaged. Pressure boots applied. PICC line in right arm with nonadhesive dressing applied. NEUROLOGICAL: No focal neurological deficits. Resting tremor PSYCHOLOGICAL: Mood and affect appear appropriate LABORATORY DATA, IMAGING STUDIES, MICROBIOLOGY: Please see below. Echocardiogram: SEE REPORT DVT prophylaxis ordered?: Heparin ASSESSMENT AND PLAN: Patient is a 64 year old male with a history of chronic atrial fibrillation and non-healing lower extremity ulcers who presented to [facility] as a transfer from [facility] with Atrial fibrillation with RVR. He has right foot osteomyelitis and MSSA bacteremia started on Nafcillin. He has had a PICC line placed and has been taken to the OR by Dr. Romano for right foot fusion. He is currently continued on Nafcillin for 6 weeks of therapy and pending placement into a [facility] care facility PROBLEMS: 1. Sepsis 2/2 MSSA Bacteremia 2/2 Right lower extremity foot ulceration/osteomyelitis -s/p right foot fusion by Dr. Romano. Plans to change dressings on Monday -Patient is followed by Infectious Disease. Plans to continue IV antibiotics until 02/12/2020. Recommendations to change to Cefazolin if there is difficulty with q4h infusions of Nafcillin at snf -Wound care recommendations per Dr. Powers -Infectious Disease, Podiatry, and Advanced Wound Care Consult Placed. Recommendations and assistance appreciated. 2. Osteomyeltis of Right foot -S/P right foot fusion with Dr. Romano. Plans to change dressings on Monday. Currently on Nafcillin. He has PICC line placed. Patient is followed by Infectious Disease. Recommendations and assistance are appreciated. Patient will continue IV antibiotics until 02/12/2020. -Currently on Nafcillin. If difficulty with q4h infusions at snf then patient will be changed to cefazolin at that time -Weekly BMP, CBC, CRP, ESR -No change in plan 3. Atrial Fibrillation with RVR -Continue patients current medications. He is well rate controlled at this time. Cardiology is following. Recommendations and assistance is appreciated -Patient is on Eliquis outpatient. Unfortunately he had developed a retroperitoneal hematoma and his anticoagulation is on hold. -Will likely need to resume Anticoagulation on discharge as hematoma is resolving -Patient does not need remote telemetry as he has been rate controlled for over a week now. RVR has resolved with resolution of sepsis 4. Contact Dermatitis 2/2 Tape -Patient has developed a rash on his arms in areas where adhesive tapes have been applied. Tape should be avoided. Triamcinolone cream has been ordered to be applied to the patients rash on his right and left arm -Appears to be improving 5. Sacral Ulcers -Stage 1-2 sacral ulcers. No changes from previous exam. Appear clean. Continue with turning and offloading 6. Left Posterior Oblique Hematoma -Patient has a hematoma which from previous records appears to have been present since at least November according to previous medical records. -Hemoglobin has been stable. 7. Diabetes Mellitus Type 2 -Consistent Carb diet -Levemir -Sliding scale insulin coverage ACHS 8. Left Femoral Head Collapse/avascular necrosis -This is a chronic problem. The patient is aware. He will follow-up outpatient for management for this 9. DVT Prophylaxis -Heparin DISPOSITION: Right foot dressing changes on Monday. Plan for continued IV antibiotics until 02/12/2020. Weekly BMP, CBC, CRP, ESR. 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 VS, I&O, 24H, Fishbone Vital Signs/I&O Vital Signs Date Time Temp Pulse Resp B/P (MAP) Pulse Ox O2 Delivery O2 Flow Rate FiO2 01/11/20 08:28 85 01/11/20 08:00 97.4 14 144/56 (85) 99 Nasal Cannula 1.0 01/08/20 16:13 100 I&O- Last 24 Hours up to 6 AM 6/27/20 06:00 Intake Total 2690 ml Output Total 1875 ml Balance 815 ml Laboratory Data 24H LABS Laboratory Tests 2 01/10/20 12:05: Bedside Glucose (Misc Panel) 199H 01/10/20 18:35: Bedside Glucose (Misc Panel) 184H 01/10/20 20:06: Bedside Glucose (Misc Panel) 311H 01/11/20 05:26: Bedside Glucose (Misc Panel) 172H Microbiology Microbiology 01/07/20 Blood Culture - Preliminary, Resulted No Growth after 72 hours. All specime... 01/07/20 Respiratory Virus Panel (PCR) (LUIS A) - Final, Complete 01/03/20 Gram Stain - Final, Complete 01/03/20 Wound Culture - Final, Complete Staphylococcus Aureus 01/01/20 Blood Culture - Final, Complete NO GROWTH AFTER 5 DAYS GME ATTESTATION I have personally evaluated and examined the patient. Discussed with resident/student regarding plan of care and agree with the above assessment and plan. ADAM HILLMAN DO Jan 11, 2020 10:51 JULIO BORDEN MD Jan 11, 2020 13:41
[2020-01-11] MEDS: oxyCODONE 5MG TAB PO PRN (17:22)
[2020-01-11] MEDS: BACLOFEN 10 MG TAB PO SCH (21:29)
[2020-01-11] MEDS: ASPIRIN 81 MG ENTERIC TAB PO SCH (21:29)
[2020-01-11] MEDS: LATANOPROST 0.005% OPHTH SOLN 2.5 ML OU SCH (21:32)
[2020-01-12 02:00] VITALS: BP 156/62
[2020-01-12] MEDS: NAFCILLIN SOD 2 GM in D5W MINI-BAG PLUS 50 ML IV SCH ×5 (03:47→20:04)
[2020-01-12] MEDS: SODIUM CHLORIDE 0.9% INJ 10 ML SYR IV SCH ×2 (05:11→17:35)
[2020-01-12 06:00] VITALS: BP 158/62
[2020-01-12] MEDS: SALMETEROL DISKUS 50MCG INHALER (SEREVENT) INH SCH ×2 (07:31→19:43)
[2020-01-12] MEDS: MIRALAX *UNIT DOSE* 17GM PACKET PO SCH (08:25)
[2020-01-12] MEDS: NYSTATIN 100,000 UNITS/GM TOPICAL PWD 15 GM TOP SCH ×2 (08:26→20:59)
[2020-01-12] MEDS: SODIUM CHLORIDE 0.9% INJ 10 ML SYR IV PRN ×2 (08:26→12:13)
[2020-01-12] MEDS: TRIAMCINOLONE ACETONIDE 0.025 % 80 GM CREAM TOP SCH ×2 (08:26→20:59)
[2020-01-12] MEDS: LACTIC ACID 12% LOTION 225 GM BTL EXT SCH (08:26)
[2020-01-12] MEDS: HumaLOG INSULIN (NovoLOG) PER UNIT SC SCH ×4 (08:27→20:58)
[2020-01-12] MEDS: LEVEMIR (INSULIN DETEMIR) 1 UNITS/0.01ML SC SCH ×2 (08:27→20:57)
[2020-01-12] MEDS: DULoxetine 30 MG CAP (CYMBALTA) PO SCH (08:27)
[2020-01-12] MEDS: HEPARIN SOD (PORCINE) 5000UNITS/ML VIAL (J1644 PER 1000UNITS) SQ SCH (08:27)
[2020-01-12] MEDS: PANTOPRAZOLE 40MG TAB (PROTONIX) PO SCH (08:28)
[2020-01-12] MEDS: DIGOXIN 0.125 MG TAB PO SCH (08:28)
[2020-01-12] MEDS: GABAPENTIN 300 MG CAP PO SCH ×3 (08:28→20:57)
[2020-01-12] MEDS: AMIODARONE 200 MG TAB (PACERONE) PO SCH ×2 (08:28→20:57)
[2020-01-12] MEDS: oxyCODONE 5MG TAB PO PRN ×2 (08:36→16:03)
[2020-01-12] MEDS: MORPHINE 2 MG/ML 1ML VIAL (J2270) IV PRN ×2 (12:16→20:59)
[2020-01-12 13:00] VITALS: O2SAT 95
[2020-01-12 14:00] VITALS: BP 159/78
--- NOTE | 2020-01-12 15:14 | RO ---
DATE OF PROCEDURE: 01/08/2020 PREPROCEDURE DIAGNOSIS: Right foot diabetic ulcer, unstable Charcot joint and infection. POSTPROCEDURE DIAGNOSIS: Right foot diabetic ulcer, unstable Charcot joint and infection. PROCEDURE: Right foot midfoot fusion with wound graft application. SURGEON: Mark Romano DPM CABLE SPLICER ASSISTANT: None. ANESTHESIA: Monitored anesthesia care, preoperative injection of 15 mL of a 1:1 mixture of 1% lidocaine plain and 0.5% Marcaine plain. ESTIMATED BLOOD LOSS: Minimal. MATERIALS: Muna MiniRail external fixator times two using eight half pins, a 3/32 Steinmann pin, Vitoss bone graft mixed with 500 mg of vancomycin and EpiFix graft mesh. COMPLICATIONS: None. CONDITION: Stable. Aurelio Alex is a 64-year-old male who has a large unstable ulceration on his right foot. He has Charcot deformity with total laxity of his midfoot joints of the 1st and 2nd metatarsal-cuneiforms and an ulceration at this site. He has a history of osteomyelitis, and he has no ability to heal this wound without stabilization. Decision was made to bring him to the operating room for foot stabilization, as well as debridement of the wound. The patient's side and site were identified and marked in the preoperative holding area. Consent was reviewed and obtained. All risks, complications, and alternatives to the procedure were explained to the patient in detail and all questions were answered. DESCRIPTION OF PROCEDURE: The patient was brought to the operating room, placed on the operative table in supine position, monitored anesthesia care was delivered by the anesthesia team. Preoperative injection of 15 mL of a 1:1 mixture of 1% lidocaine plain and 0.50% Marcaine plain were injected into the right foot and ankle. The foot was prepped and draped in the normal sterile fashion. No tourniquet was used during the procedure. There was a large dorsal wound over the midfoot on his right side. Generally, the wound base was granular with the exception at the metatarsal-cuneiform joints where the was some purulent drainage, as well as an unstable joint. With plantar flexion of the forefoot, large gapping occurred at the joint. Using a curette, some bone debris, as well as whatever remaining portions of the cartilage were removed from the 1st and 2nd metatarsal-cuneiform joints. It should be noted that the bone was generally soft, and after debridement and irrigation, no further purulence was noted. Following this, Vitoss was mixed with blood and 500 mg of vancomycin powder, and this was inserted into both joints. Using two half pins placed into the skin spanning the wound, the external fixator was applied and tensioned until firm compression was obtained across the joints. A Steinmann pin was driven across the joints as well for further stabilization. This was cut and left in place. After this, an EpiFix graft mesh was placed on top of the wound and gauze dressings were applied. The patient was brought to the post-anesthesia care unit (PACU) with vital signs stable, neurovascular status intact. He will be re-admitted to the floor for antibiotic monitoring. He will ultimately be required to be discharged to nursing facility for ongoing care.
[2020-01-12 15:28] LABS: HEMATOCRIT 34.7 % (42.0-52.0); HEMOGLOBIN 9.9 g/dl (13.5-17.5); MEAN CORPUSCULAR HEMOGLOBIN 23.7 pg (27.0-33.0); MEAN CORPUSCULAR HGB CONC 28.5 g/dl (32.0-36.5); MEAN CORPUSCULAR VOLUME 83.2 fl (80.0-96.0); PLATELET COUNT, AUTOMATED 245 10^3/uL (150-450); RED BLOOD COUNT 4.17 10^6/uL (4.30-6.10)
[2020-01-12 16:02] LABS: BLOOD UREA NITROGEN 17 MG/DL (7-18); CALCIUM LEVEL 8.6 MG/DL (8.8-10.2); CARBON DIOXIDE LEVEL 37 MEQ/L (21-32); CHLORIDE LEVEL 97 MEQ/L (98-107); CREATININE FOR GFR 0.83 MG/DL (0.70-1.30); GLOMERULAR FILTRATION RATE > 60.0 (>49); GLUCOSE, FASTING 242 MG/DL (70-100); SODIUM LEVEL 140 MEQ/L (136-145)
[2020-01-12 18:00] VITALS: BP 150/90
[2020-01-12] MEDS: ASPIRIN 81 MG ENTERIC TAB PO SCH (20:57)
[2020-01-12] MEDS: BACLOFEN 10 MG TAB PO SCH (20:58)
[2020-01-12] MEDS: LATANOPROST 0.005% OPHTH SOLN 2.5 ML OU SCH (20:59)
[2020-01-12 22:00] VITALS: BP 163/76
[2020-01-13] MEDS: NAFCILLIN SOD 2 GM in D5W MINI-BAG PLUS 50 ML IV SCH ×6 (00:16→20:37)
[2020-01-13] MEDS: oxyCODONE 5MG TAB PO PRN ×2 (00:17→08:42)
[2020-01-13 02:00] VITALS: BP 150/76
[2020-01-13] MEDS: SODIUM CHLORIDE 0.9% INJ 10 ML SYR IV SCH ×2 (05:26→18:34)
[2020-01-13 06:00] VITALS: BP 110/80
[2020-01-13] MEDS: SALMETEROL DISKUS 50MCG INHALER (SEREVENT) INH SCH ×2 (07:34→19:08)
[2020-01-13] MEDS: GABAPENTIN 300 MG CAP PO SCH ×3 (08:41→20:37)
[2020-01-13] MEDS: PANTOPRAZOLE 40MG TAB (PROTONIX) PO SCH (08:41)
[2020-01-13] MEDS: DULoxetine 30 MG CAP (CYMBALTA) PO SCH (08:41)
[2020-01-13] MEDS: AMIODARONE 200 MG TAB (PACERONE) PO SCH ×2 (08:41→20:38)
[2020-01-13] MEDS: NYSTATIN 100,000 UNITS/GM TOPICAL PWD 15 GM TOP SCH ×2 (08:41→20:39)
[2020-01-13] MEDS: fentaNYL 100 MCG/HR PATCH TOP SCH (08:43)
[2020-01-13] MEDS: LEVEMIR (INSULIN DETEMIR) 1 UNITS/0.01ML SC SCH ×2 (08:44→20:38)
[2020-01-13] MEDS: DIGOXIN 0.125 MG TAB PO SCH (08:44)
[2020-01-13] MEDS: HumaLOG INSULIN (NovoLOG) PER UNIT SC SCH ×4 (08:44→20:19)
[2020-01-13] MEDS: MIRALAX *UNIT DOSE* 17GM PACKET PO SCH (08:45)
[2020-01-13] MEDS: LACTIC ACID 12% LOTION 225 GM BTL EXT SCH (08:45)
[2020-01-13] MEDS: TRIAMCINOLONE ACETONIDE 0.025 % 80 GM CREAM TOP SCH ×2 (08:45→20:39)
[2020-01-13] MEDS: SODIUM CHLORIDE 0.9% INJ 10 ML SYR IV PRN ×2 (10:26→13:59)
[2020-01-13] MEDS ORDERED: oxyCODONE 5MG TAB PO PRN (10:45)
[2020-01-13] MEDS ORDERED: GABAPENTIN 100 MG CAP PO ONE (11:15)
--- NOTE | 2020-01-13 11:28 | IPN ---
DATE OF SERVICE: 01/12/2020 He is a 64-year-old male with right foot osteomyelitis, status post surgery on the right foot with Dr. Romano. He cannot bear weight on the left side, and they are trying to save his right. LABORATORY STUDIES: Today, white count remains normal at 8. Hemoglobin and hematocrit are improved at 9.9 and 34.7. Platelets are 245. Sodium is 140, potassium 4.0, chloride 97, CO2 37, BUN is 17, creatinine 0.83, nonfasting glucose 242. The patient had one episode today of blood-tinged urine. His voiding subsequently has remained clear. His hemoglobin and hematocrit is stable. He continues just on heparin for deep venous thrombosis (DVT) prophylaxis, as his Eliquis has been on hold, as he had developed a left posterior oblique hematoma, which is improving. OBJECTIVE: Blood pressure 158/62, pulse 88, respiration 16, oxygen (O2) 1 liter nasal cannula, pulse oximetry 100%, temperature 97.4. The patient is alert and oriented. Pupils are equal and react to light. Extraocular movements (EOMs) intact. Cornea and sclerae clear. Conjunctivae normal. No facial asymmetry. Tongue is midline. NECK: Is supple without lymphadenopathy. No thyromegaly. No goiter. CHEST: Has decreased breath sounds. No wheeze or retraction. HEART: Is irregularly irregular. ABDOMEN: Is benign. Bowel sounds positive. SKIN: Has a stage II pressure ulcer. No drainage. EXTREMITIES: Show 1-2+ pitting bilateral lower extremity edema. Right foot wound is bandaged. Pressure boot is on. Deep venous thrombosis (DVT) prophylaxis, heparin. IMPRESSION AND PLAN: 1. Sepsis secondary to methicillin-susceptible Staphylococcus aureus (MSSA) bacteremia. 2. Right lower extremity foot ulceration. Osteomyelitis. Status post right foot fusion by Dr. Romano. Dressings to be changed on Monday. Continue followup with infectious disease. Wound care recommendations per Dr. Powers. 3. Osteomyelitis of the right foot. Continues on antibiotic. 4. Atrial fibrillation. Rate remains controlled. Recommendations and assistance per cardiology. 5. Retroperitoneal hematoma is resolving. Will need to consider restarting Eliquis at some point. 6. Contact dermatitis from the tape. Avoid the tape. Continue triamcinolone cream to the rash on the right and left arm. Slightly improved. 7. Sacral ulcers. Continue trimming and offloading. 8. Left posterior oblique hematoma. Hemoglobin stable. 9. Diabetes type 2. Continue consistent-carbohydrate diet and Levemir, as well as sliding scale with coverage before meals and nightly. 10. Left femoral head collapse. Avascular necrosis. Chronic. 11. Deep venous thrombosis prophylaxis, heparin.
--- NOTE | 2020-01-13 11:47 | IPNPDOC ---
Text Note Date of Service The patient was seen on 01/13/20. NOTE SUBJECTIVE: Patient was seen and examined this morning. There have been no ad verse events reported overnight. PHYSICAL EXAMINATION: VITAL SIGNS: Please see below. GENERAL: Awake, alert, and oriented. Appears in no acute distress. Lying comfortably in bed. HEENT: Atraumatic, normocephalic. Eyes are nonicteric. Trachea is midline. CARDIOVASCULAR: Irregularly irregular rhythm. Regular rate. No clicks rubs or murmurs RESPIRATORY: Clear vesicular breath sounds bilaterally. Slightly diminished in the bases. no wheezes, rhonchi, or rales ABDOMINAL: Soft, nondistended. Nontender. Normoactive bowel sounds SKIN: Stage 2 sacral pressure ulcer that appears clean without purulence EXTREMITIES: 1-2+ pitting edema in bilateral lower extremities. Right foot wound and left Achilles heel wound currently bandaged. Pressure boots applied. PICC line in right arm with nonadhesive dressing applied. NEUROLOGICAL: No focal neurological deficits. Resting tremor PSYCHOLOGICAL: Mood and affect appear appropriate ASSESSMENT AND PLAN: Patient is a 64 year old male with a history of chronic atrial fibrillation and non-healing lower extremity ulcers who presented to [facility] as a transfer from [facility] with Atrial fibrillation with RVR. He has right foot osteomyelitis and MSSA bacteremia started on Nafcillin. He has had a PICC line placed and has been taken to the OR by Dr. Romano for right foot fusion. He is currently continued on Nafcillin for 6 weeks of therapy and pending placement into a [facility] 1. Sepsis 2/2 MSSA Bacteremia 2/2 Right lower extremity foot ulceration/osteomyelitis . The patient is s/p right foot fusion by Dr. Romano. Pl ans to change dressings on 01/13/20. Patient is followed by Infectious Disease. Plans to continue IV antibiotics until 02/12/2020. Recommendations to change to Cefazolin if there is difficulty with q4h infusions of Nafcillin at custodial. Currently the patient is on nafcillin. Wound care recommendations per Dr. Powers . Infectious Disease, Podiatry, and Advanced Wound Care Consult Placed. Recommendations and assistance appreciated. 2. Osteomyeltis of Right foot: S/P right foot fusion with Dr. Romano. Plans to change dressings on Monday. Currently on Nafcillin. He has PICC line placed. Patient is followed by Infectious Disease. Recommendations and assistance are appreciated. Patient will continue IV antibiotics until 02/12/2020. Currently on Nafcillin. If difficulty with q4h infusions at custodial then patient will be changed to cefazolin at that time. Weekly BMP, CBC, CRP, ESR 3. Atrial Fibrillation with RVR: Continue patients current medications. He is well rate controlled at this time. Cardiology is following. Recommendations and assistance is appreciated . Patient is on Eliquis outpatient. Unfortunately he had developed a retroperitoneal hematoma and his anticoagulation is on hold. Will likely need to resume Anticoagulation on discharge as hematoma is resolving. He currently is on digitoxin as well as Cardizem 60 every 6 4. Contact Dermatitis 2/2 Tape : Patient has developed a rash on his arms in areas where adhesive tapes have been applied. Tape should be avoided. Triamcinolone cream has been ordered to be applied to the patients rash on his right and left arm Appears to be improving 5. Sacral Ulcers : Stage 1-2 sacral ulcers. No changes from previous exam. Appear clean. Continue with turning and offloading 6. Left Posterior Oblique Hematoma : Patient has a hematoma which from previous records appears to have been present since at least November according to previous medical records. Hemoglobin has been stable. 7. Diabetes Mellitus Type 2 : Consistent Carb diet , Levemir , Sliding scale insulin coverage ACHS 8. Left Femoral Head Collapse/avascular necrosis : This is a chronic problem. The patient is aware. He will follow-up outpatient for management for this DVT Prophylaxis Heparin DISPOSITION: Right foot dressing changes on Monday. Plan for continued IV antibiotics until 02/12/2020. Weekly BMP, CBC, CRP, ESR. Placement into rehab/[facility] care facility VS,Fishbone, I+O VS, Fishbone, I+O Laboratory Tests 01/12/20 15:14 Vital Signs Date Time Temp Pulse Resp B/P (MAP) Pulse Ox O2 Delivery O2 Flow Rate FiO2 01/13/20 09:13 17 01/13/20 08:44 87 01/13/20 06:00 98.0 110/80 (90) 97 Room Air 01/12/20 18:00 1.0 01/08/20 16:13 100 I&O- Last 24 Hours up to 6 AM 01/13/20 06:00 Intake Total 1910 ml Output Total 2700 ml Balance -790 ml KICHLOO,HOLDEN A. MD Jan 13, 2020 11:47
[2020-01-13 14:00] VITALS: BP 144/72
[2020-01-13] MEDS: ACETAMINOPHEN TAB 650MG DOSE (2X325MG) PO PRN (17:14)
[2020-01-13 20:00] VITALS: BP 160/92
[2020-01-13] MEDS: BACLOFEN 10 MG TAB PO SCH (20:37)
[2020-01-13] MEDS: ASPIRIN 81 MG ENTERIC TAB PO SCH (20:37)
[2020-01-13] MEDS: LATANOPROST 0.005% OPHTH SOLN 2.5 ML OU SCH (20:37)
[2020-01-13 23:31] LABS: ABG BASE EXCESS 9.3 (-2.0-2.0); ABG HCO3 35.1 MEQ/L (22.0-26.0); ABG O2 SATURATION 93.9 % (95.0-99.0); ABG PARTIAL PRESSURE CO2 53.4 mmHg (35.0-45.0); ABG PARTIAL PRESSURE O2 69.7 mmHg (75.0-100.0); ABG TOTAL CO2 36.8 MEQ/L (23.0-31.0); ABG pH (ARTERIAL) 7.436 UNITS (7.350-7.450)
[2020-01-13 23:47] LABS: HEMATOCRIT 42.5 % (42.0-52.0); MEAN CORPUSCULAR HEMOGLOBIN 23.8 pg (27.0-33.0); MEAN CORPUSCULAR HGB CONC 29.2 g/dl (32.0-36.5); MEAN CORPUSCULAR VOLUME 81.4 fl (80.0-96.0); PLATELET COUNT, AUTOMATED 278 10^3/uL (150-450); RED BLOOD COUNT 5.22 10^6/uL (4.30-6.10)
[2020-01-13 23:51] LABS: HEMOGLOBIN 12.4 g/dl (13.5-17.5)
[2020-01-14] VITALS: BP 192/96
--- NOTE | 2020-01-14 00:11 | REPVR ---
PROCEDURE INFORMATION: Exam: CT Head Without Contrast Exam date and time: 01/13/2020 11:20 PM Age: 64 years old Clinical indication: Other: Lethargy TECHNIQUE: Imaging protocol: Computed tomography of the head without contrast. Radiation optimization: All CT scans at this facility use at least one of these dose optimization techniques: automated exposure control; mA and/or kV adjustment per patient size (includes targeted exams where dose is matched to clinical indication); or iterative reconstruction. COMPARISON: No relevant prior studies available. FINDINGS: Brain: Mild generalized parenchymal atrophy and evidence of microvascular ischemic disease involving periventricular and subcortical white matter bilaterally. Ventricles: Normal. No ventriculomegaly. Bones/joints: Unremarkable. No acute fracture. Sinuses: Visualized sinuses are unremarkable. No fluid levels. Mastoid air cells: Visualized mastoid air cells are well aerated. Soft tissues: Unremarkable. IMPRESSION: No acute intracranial pathology. Electronically signed by: Karthikeyan Sams On 01/14/2020 00:10:30 AM
[2020-01-14 00:21] LABS: ALBUMIN 2.2 GM/DL (3.2-5.2); ALT/SGPT 22 U/L (12-78); BILIRUBIN,TOTAL 0.7 MG/DL (0.2-1.0); BLOOD UREA NITROGEN 16 MG/DL (7-18); CALCIUM LEVEL 9.7 MG/DL (8.8-10.2); CARBON DIOXIDE LEVEL 34 MEQ/L (21-32); CHLORIDE LEVEL 97 MEQ/L (98-107); CREATININE FOR GFR 0.77 MG/DL (0.70-1.30); GLOMERULAR FILTRATION RATE > 60.0 (>49); GLUCOSE, FASTING 169 MG/DL (70-100); POTASSIUM SERUM 3.7 MEQ/L (3.5-5.1); SODIUM LEVEL 135 MEQ/L (136-145); TOTAL PROTEIN 8.9 GM/DL (6.4-8.2); TROPONIN I < 0.02 NG/ML (< 0.10)
[2020-01-14] MEDS ORDERED: LABETALOL 100MG/20ML VIAL IV STA (00:24)
[2020-01-14] MEDS ORDERED: ISOVUE-370 76% 100ML VIAL As Ordered ONE (00:38)
[2020-01-14 00:43] VITALS: BP 182/76
--- NOTE | 2020-01-14 00:50 | IPNPDOC ---
Date Seen The patient was seen on 01/14/20. Progress Note Rapid response: Called at 11:14 for patient with AMS. Reported by nurse that patient has a sign ificant change in mental status, not talking or responsive. When evaluated at bedside, patient initially did not speak but later mumbles his name intermittently and incoherently. Moves all extremities but noted a complete R. side neglect with diaphoresis. EKG was done which does not show any evidence of significant ST changes. Troponin and basic bloodwork obtained. BS 170. Patient was transferred to PCU after coming up from CT scan and re-evaluated with Dr. Mota. CT head was done which does not show any significant abnormalities. Called and discussed with neurology Dr. Yancey, recommend CT angio stat and consult with neurology [facility] as well as keeping BP 140-180 systolic and MRI if patient does not get transferred. Symptoms improved at around 12:15, he does turn to the R. side intermittently but not for long. patient going to get CTA. Patient is handed over to Dr. Mota for continued management and get in contact with [facility] as well as f/u CT scans. f/u labs. Patient is not a candidate for tPA due to recent retroperitoneal hematoma. Hx afib previous on Eliquis which had been held. May benefit from thrombectomy however. Last seen normal: 7pm, mild symptoms around 830 (intermittent lethargy is his baseline), severe symptoms at 11. VS, I&O, 24H, [facility] Vital Signs/I&O Vital Signs Date Time Temp Pulse Resp B/P (MAP) Pulse Ox O2 Delivery O2 Flow Rate FiO2 01/13/20 20:40 18 97 Room Air 01/13/20 20:00 97.8 68 160/92 (114) 01/12/20 18:00 1.0 01/08/20 16:13 100 I&O- Last 24 Hours up to 6 AM 01/14/20 05:59 Intake Total 1090 ml Output Total 2400 ml Balance -1310 ml Laboratory Data 24H LABS Laboratory Tests 2 01/13/20 05:53: Bedside Glucose (Misc Panel) 119H 01/13/20 12:26: Bedside Glucose (Misc Panel) 197H 01/13/20 16:30: Bedside Glucose (Misc Panel) 181H 01/13/20 20:16: Bedside Glucose (Misc Panel) 146H 01/13/20 23:11: Bedside Glucose (Misc Panel) 137H 01/13/20 23:25: Blood Gas Bicarbonate Standard 33.0H, Arterial Blood pH 7.436, Arterial Blood Partial Pressure CO2 53.4H, Arterial Blood Partial Pressure O2 69.7L, Arterial Blood Total CO2 36.8H, Arterial Blood HCO3 35.1H, Arterial Blood Base Excess 9.3H, Arterial Blood Oxygen Saturation 93.9L 01/13/20 23:26: Nucleated Red Blood Cells % (auto) 0.0, Anion Gap 4L, Glomerular Filtration Rate > 60.0, Lactic Acid Level 1.0, Calcium Level 9.7, Total Bilirubin 0.7, Aspartate Amino Transf (AST/SGOT) 28, Alanine Aminotransferase (ALT/SGPT) 22, Alkaline Phosphatase 77, Ammonia 15, Troponin I < 0.02, Total Protein 8.9H, Albumin 2.2L, Albumin/Globulin Ratio 0.3 01/13/20 23:42: Bedside Glucose (Misc Panel) 170H CBC/BMP Laboratory Tests 01/13/20 23:26 Microbiology Microbiology 01/07/20 Blood Culture - Final, Complete NO GROWTH AFTER 5 DAYS 01/07/20 Respiratory Virus Panel (PCR) (LUIS A) - Final, Complete JULIO BORDEN MD Jan 14, 2020 00:50
[2020-01-14 01:07] VITALS: BP 152/76
--- NOTE | 2020-01-14 01:17 | REPVR ---
PROCEDURE INFORMATION: Exam: CT Angiography Neck With Contrast Exam date and time: 01/14/2020 12:24 AM Age: 64 years old Clinical indication: Other: R side neglect; Additional info: Right side neglect, AMS TECHNIQUE: Imaging protocol: Computed tomography angiography of the neck with intravenous contrast. 3D rendering: MIP and/or 3D reconstructed images were created by the technologist. Radiation optimization: All CT scans at this facility use at least one of these dose optimization techniques: automated exposure control; mA and/or kV adjustment per patient size (includes targeted exams where dose is matched to clinical indication); or iterative reconstruction. Contrast material: ISO; Contrast volume: 75 ml; Contrast route: INTRAVENOUS (IV); COMPARISON: US Duplex,carotid (complete) 12/25/2016 11:04 AM FINDINGS: Right common carotid artery: No stenosis. No dissection or occlusion. Right internal carotid artery: Severe greater than 90% stenosis involving proximal right internal carotid artery. Right external carotid artery: No occlusion or stenosis of the origin. Right vertebral artery: No stenosis. No dissection or occlusion. Left common carotid artery: No stenosis. No dissection or occlusion. Left internal carotid artery: Severe greater than 90% stenosis involving proximal left internal carotid artery. Left external carotid artery: No occlusion or stenosis of the origin. Left vertebral artery: Dominant left vertebral artery. Bones/joints: Severe multilevel degenerative disease of the cervical spine. Ossification of the posterior longitudinal ligament results in severe stenosis of the spinal canal particularly at C2-C3 level. Status post C5-C7 spinal fusion. Marked multilevel neural foraminal stenosis. Soft tissues: Normal. No significant soft tissue swelling. Lungs: Patchy bilateral nonspecific ground-glass opacities. Centrilobular and paraseptal emphysema. IMPRESSION: Severe greater than 90% stenosis involving proximal bilateral internal carotid arteries. REFERENCES: NASCET CRITERIA. The degree of internal carotid artery stenosis is based on NASCET criteria. Normal is no stenosis. Mild is less than 50% stenosis. Moderate is 50-69% stenosis. Severe is 70% to 99% stenosis. Total occlusion is no detectable patent lumen. Electronically signed by: Karthikeyan Sams On 01/14/2020 01:17:31 AM
--- NOTE | 2020-01-14 01:20 | REPVR ---
PROCEDURE INFORMATION: Exam: CT Angiography Head With Contrast Exam date and time: 01/14/2020 12:24 AM Age: 64 years old Clinical indication: Other: R side neglect; Additional info: Right side neglect, AMS TECHNIQUE: Imaging protocol: Computed tomography angiography of the head with intravenous contrast. 3D rendering: MIP and/or 3D reconstructed images were created by the technologist. Radiation optimization: All CT scans at this facility use at least one of these dose optimization techniques: automated exposure control; mA and/or kV adjustment per patient size (includes targeted exams where dose is matched to clinical indication); or iterative reconstruction. Contrast material: ISO; Contrast volume: 75 ml; Contrast route: INTRAVENOUS (IV); COMPARISON: CT Head without contrast 01/13/2020 11:50 PM FINDINGS: Anterior cerebral arteries: No occlusion or significant stenosis. No aneurysm. Right internal carotid artery: Atherosclerotic disease. Intracranial segment is patent with no significant stenosis or occlusion. No aneurysm. Right middle cerebral artery: No occlusion or significant stenosis. No aneurysm. Right posterior cerebral artery: No occlusion or significant stenosis. No aneurysm. Right vertebral artery: No occlusion or significant stenosis. No aneurysm. Left internal carotid artery: Atherosclerotic disease. Intracranial segment is patent with no significant stenosis or occlusion. No aneurysm. Left middle cerebral artery: No occlusion or significant stenosis. No aneurysm. Left posterior cerebral artery: No occlusion or significant stenosis. No aneurysm. Left vertebral artery: No occlusion or significant stenosis. No aneurysm. Basilar artery: No occlusion or significant stenosis. No aneurysm. IMPRESSION: No large vessel stenosis or occlusion. Electronically signed by: Karthikeyan Sams On 01/14/2020 01:20:08 AM
[2020-01-14] MEDS: NAFCILLIN SOD 2 GM in D5W MINI-BAG PLUS 50 ML IV SCH (01:29)
[2020-01-14 03:09] VITALS: BP 173/85
[2020-01-14 08:39] VITALS: BP 198/70
--- NOTE | 2020-01-14 10:24 | IPN ---
DATE OF SERVICE: 01/13/2020 The patient seen and examined. Denies any complaints. States his foot is not having too much pain. Lower extremity examination of the right foot: External fixators are stable. The foot has been stabilized. The wound is generally granular. There is no erythema or necrosis. ASSESSMENT: 64-year-old make with diabetes, Charcot foot status post stabilization. PLAN: Start Hydrofera Blue dressings every other day. Patient is to remain non-weightbearing. He is okay for discharge from podiatry standpoint to a nursing facility. He should have followup with Dr. Powers and myself.
--- NOTE | 2020-01-16 08:34 | ECGEPIP ---
[facility] Test Date: 2020-01-13 Pat Name: DIANA OLIVERA Department: Room: [place] [address] Gender: Male Family Intervention Specialist: DILMA : 1955 Requested By: JULIO Jackson Order Number: [id number] Reading MD: Kodi Barton Measurements Intervals [place] Rate: 96 P: 42 AK: 215 QRS: -62 QRSD: 97 T: 56 QT: 265 QTc: 336 Interpretive Statements SINUS RHYTHM WITH FIRST DEGREE AV BLOCK WITH OCCASIONAL SUPRAVENTRICULAR PREMATURE COMPLEXES PATTERN CONSISTENT WITH PULMONARY DISEASE LEFT ANTERIOR FASCICULAR BLOCK NONSPECIFIC T-WAVE ABNORMALITY NO CHANGE COMPARED TO 01/01/20 Electronically Signed on 01-16-2020 8:34:34 EDT by Kodi Barton
[2020-01-21] MEDS ORDERED: AMIO200T PO (14:42)
== END 2020-01-14 03:45 | disposition short-term general hospital (02) | DRG 853 ==
LOC: M PCU 16:10 → M MSPAV 01-08 16:03 → M PCU 01-13 23:44
PROVIDERS: ADMIT Internal Medicine; ATTEND Internal Medicine
PROC: 0JBQ3ZZ Excision of Right Foot Subcutaneous Tissue and Fascia, Percutaneous Approach (ICD-10-PCS; 2020-01-03)
PROC: 02HV33Z Insertion of Infusion Device into Superior Vena Cava, Percutaneous Approach (ICD-10-PCS; 2020-01-07)
PROC: 0SGH04Z Fusion of Right Tarsal Joint with Internal Fixation Device, Open Approach (ICD-10-PCS; principal; 2020-01-08 13:20)
DX: A41.01 Sepsis due to Methicillin susceptible Staphylococcus aureus (principal); K66.1 Hemoperitoneum; J18.9 Pneumonia, unspecified organism; I48.20 Chronic atrial fibrillation, unspecified; J90 Pleural effusion, not elsewhere classified; M86.171 Other acute osteomyelitis, right ankle and foot; M87.052 Idiopathic aseptic necrosis of left femur; E11.621 Type 2 diabetes mellitus with foot ulcer; E11.51 Type 2 diabetes mellitus with diabetic peripheral angiopathy without gangrene; I25.10 Atherosclerotic heart disease of native coronary artery without angina pectoris; I10 Essential (primary) hypertension; Z95.2 Presence of prosthetic heart valve; E78.5 Hyperlipidemia, unspecified; G47.33 Obstructive sleep apnea (adult) (pediatric); Z91.19 Patient's noncompliance with other medical treatment and regimen; Z79.899 Other long term (current) drug therapy; Z79.82 Long term (current) use of aspirin; F17.200 Nicotine dependence, unspecified, uncomplicated; L97.529 Non-pressure chronic ulcer of other part of left foot with unspecified severity; L23.1 Allergic contact dermatitis due to adhesives; L98.429 Non-pressure chronic ulcer of back with unspecified severity

== ENCOUNTER 2020-01-21 10:08 | Inpatient (IN) | payer MEDICARE, BC ==
[~2020-01-21] VITALS: Ht 180.3 cm; Wt 92.8 kg
[~2020-01-21 10:08] MED LIST changes: -AMLO10TA5 PO; +AMLO1TAB25 PO; +APAP325T4 PO; -ASPI81TA85 PO; +ASPI81TA86 PO; +ATOR1TAB21 PO; +GUAI100S51 PO; +LEVE1INJ5 SC; +METF-877 PO; +MIDO5TA PO; +OXYC20TA2 PO; +PANT40TA29 PO; -PANT40TA3 PO; +PATIENT COMMENT; +POLY1POW38 PO; +VITA-158 PO
--- NOTE | 2020-01-21 11:23 | HPEPDOC ---
[employer] Apprentice Note DATE OF ADMISSION: 01-21-20 DATE OF SERVICE: 01-21-20 TIME OF ADMISSION: Please refer to physician's admission order. SOURCE OF ADMISSION INFORMATION: [facility] record and patient CHIEF COMPLAINT: stroke HISTORY OF PRESENT ILLNESS: 64M pmh DM2 with peripheral polyneuropathy, CAD with stents, Afib on eliquis, chronic anemia, CLAUDIA on CPAP, CKD, PVD, COPD, chronic diastolic CHF, RLE osteomyelitis s/ pright foot debridement on 01-03-20 and right foot fusion 01-08-20, was treated for MSSA bacteremia and afib with RVR at [facility] then transferred to [facility] 01-14-20 for stroke symptoms of right sided weakness and neglect. At [facility] CT did not show intracranial hemorrhage and MRI was negative for ischemic pathology, but did show, bilateral occipital white matter and bilateral cerebellar hemispheres without diffusion restriction. These imaging features can be seen in posterior reversible encephalopathy syndrome. SHELBI did show vegetations on the right coronary cusp and aortic valve. He ultimately was taken off of Eliquis due to concerns for his chronic abdominal hematoma and he remained on amiodarone for rate control. Despite have bilateral ICA stenosis neurosurgery did not recommend intervention in the setting of bacteremia and endocarditis. was evaluated by therapy, found to have impairments in mobility and ADLs below his prior level of function and deemed medically appropriate for discharge to ARU on 01-21-20. REVIEW OF SYSTEMS: The following is a completed review of systems and has been reviewed. Review of systems otherwise unremarkable. PAIN: Patient self reports no pain EYES: No recent vision changes EARS, NOSE, & THROAT:No throat pain, or dysphagia, or rhinorrhea CARDIOVASCULAR: Denies chest pain or palpitations PULMONARY: Denies shortness of breath GASTROINTESTINAL: Denies constipation/diarrhea GENITOURINARY: denies dysuria MUSCULOSKELETAL:generalized weakness NEUROLOGICAL:+peripheral polyneuropathy HEMATOLOGICAL: denies easy bruising SKIN: right dorsal foot surgical wound, posterior left calf wound, right upper arm rash PSYCHIATRIC: Unremarkable All other review of systems found to be negative. PAST MEDICAL HISTORY: as per HPI PAST SURGICAL HISTORY: Bilateral common and external iliac artery angioplasty and stent, left superf icial femoral artery angioplasty and stenting, left D1 toe amputation, C6-C7 corpectomy with fusion, cardiac stents, RTC surgery, left eyelid melanoma removal ALLERGIES: Please see below. MEDICATIONS: Please see below. FAMILY HISTORY: cancer SOCIAL HISTORY: + smoker, no etoh/illicit drugs DIET: consistent carb, fluid restrict PHYSICAL EXAMINATION: VITAL SIGNS: Please see below. GENERAL: Pleasant and cooperative. No acute distress. HEENT: PERRL. Extraocular movements intact. Clear conjunctiva CARDIOVASCULAR: Irregular rate and rhythm. No murmurs, rubs, or gallops LUNGS: Clear to auscultation bilaterally. No wheezes. No rhonchi ABDOMEN: Soft, nontender, nondistended. Positive bowel sounds. Normal active bowel sounds NEUROLOGICAL: Alert and oriented times three. Cranial nerves II through XII grossly intact. Sensation diminished to light touch bilat LE in stocking pattern EXTREMITIES: 5-\5 strength bilateral upper extremities. 4/5 right hip flexion, knee extension, 3/5 ankle DF, 0/5 EHL 1/5 left hip flexion, 3/5 knee extension 0/5 ankle DF/EHL SKIN: hyperkeratotic calves L>R, posterior left calf with vertical wound with healthy granulation tissue, no exudate -right foot with pins in place, no induration noted around the surgical site -right upper arm erythema in circumscribed square pattern LABORATORY DATA: Please see below. IMAGING:Imaging documentation personally reviewed by record FUNCTIONAL STATUS: Premorbid: requiring some assistance with activities of daily life as well as mobility household distances On Admission: Min-total assistance for bathing, upper body dressing, bed chair and wheelchair transfers, toilet transfers, ambulation. GOALS: Supervision for functional transfers, independent from wheelchair level, contact guard for ambulation short distances, Mod-I for upper body dressing, grooming, toileting ASSESSMENT:64-year-old M with past medical history of DM and PVD who presents status new onset right sided weakness. PLAN: 1.Rehab- PT/OT advance gait and ADL training, strengthen/stretch/maintain ROM all 4limbs -OPHTHALMIC PHOTOGRAPHER for cognition eval 2. Neuro: patient with recent acute onset right sided hemiparesis, possibly due to TIA as MRI did not confirm ischemic infarct or posterior reversible encephalopathy syndrome- c/u secondary stroke management with statin, ASA, good BP and glycemic control -c/u Cymbalta which will help with motor recovery - peripheral polyneuropathy due to longstanding DM with gait impairment, optimize DM management 3. Cardiac: Afib cu Amiodarone and betablocker, Eliquis on hold due to intraabdominal hematoma -hx of CAD s/p stenting c/u ASA -chronic diastolic CHF grade 2, c/u daily weight, fluid restrict, monitor for fluid overload -HTN c/u lisinopril and amlodipine, medicine consulted to assist in overall management -HLD c/u statin 4. Resp: c/u duonebs, and Serevant, monitor for infection -CLAUDIA may use own cpap 5. Endo: DM with hyperglycemia and peripheral polyneuropathy. c/u Levemir, ISS 6. Pain: chronic low back pain with chronic opioid use, c/u fentanyl, oxycodone, gabapentin, cymbalta, baclofen -naloxone ordered prn 7. GI ppx: protonix 8. DVT ppx; heparin 9. ID: c/u Nafcillin (we do not carry Oxacillin) 2g IV q4h x 6 weeks stop date 02-25-20, will consult ID -f/u ECHO in 2-4 weeks for known vegetations -vitamin C and zinc added for wound healing 10. Ortho: s/p right foot fusion NWB- will consult Dr. Romano 11. Dispo: TBD POST ADMISSION PHYSICIAN EVALUATION: Medical and functional status: Description of medical status, medical assessment: As above. Rehabilitation diagnosis and current and prior cold morbid medical conditions as above. Risk of complications and plans to mitigate them as above. Description of functional status current status is as above. Prior status as above. Status compared to preadmission: There are no clinically significant differences between the patient's current status and the information described on the preadmission screening document. Treatment plan anticipated: Treatment plan is as described above. Required disciplines including physical therapy, occupational therapy, others as noted above. Intensity of services: 3 hours a day, 6 days a week. Special considerations: There are no specific special or safety considerations that would likely preclude immediate implementation of an intensive rehabilitation program or subsequently influence the plan of care. ATTESTATION: Considering all the information above, it is my best judgment that this patient requires intensive rehabilitation therapy as described above and an inpatient hospital environment due to the complexity of nursing, medical, and rehabilitation needs required by the patient. Furthermore, this patient can reasonably be expected to participate in an benefit from an inpatient rehabilitation stay with an interdisciplinary team approach to the delivery of rehabilitation care under the direction and supervision of rehabilitation physician. PROGNOSIS: good ESTIMATED LENGTH OF STAY:14-18 days. PROJECTED DISCHARGE DESTINATION: Home with family support and any durable medical equipment required to increase functional safety and mobility. TIME SPENT COUNSELING AND COORDINATING INITIAL CARE: Greater than 70 minutes. Vital Signs Vital Signs Date Time Temp Pulse Resp B/P (MAP) Pulse Ox O2 Delivery O2 Flow Rate FiO2 01/21/20 13:20 96.5 76 18 161/75 (103) 96 Room Air 01/22/20 05:44 2.0 Home Medications Scheduled Amiodarone HCl (Amiodarone HCl) 200 Mg Tablet, 200 MG PO BID, (Reported) GIVE 400MG ON NIGHT OF 01/21/20 Amlodipine Besylate (Amlodipine Besylate) 10 Mg Tablet, 10 MG PO DAILY, (Reported) Aspirin (Aspir 81) 81 Mg Tablet.dr, 81 MG PO DAILY, (Reported) Atorvastatin Calcium (Atorvastatin Calcium) 80 Mg Tablet, 80 MG PO DAILY, (Reported) Atorvastatin Calcium (Atorvastatin Calcium) 80 Mg Tablet, 80 MG PO DAILY, (Reported) Duloxetine Hcl (Duloxetine HCl) 60 Mg Capsule.dr, 60 MG PO DAILY, (Reported) Fentanyl (Fentanyl) 100 Mcg Patch.td72, 100 MCG TOP Q3D, (Reported) CURRENTLY APPLIED TO STOMACH Gabapentin (Gabapentin) 600 Mg Tablet, 600 MG PO TID, (Reported) Insulin Detemir (Levemir Flextouch) 100 Unit/1 Ml Insuln.pen, 45 UNIT SC BID, (Reported) HOLD IF FINGER STICK IS LESS THAN 100 Insulin Human Lispro (Humalog) 100 Unit/1 Ml Vial, 1 DOSE SC WM, (Reported) SLIDING SCLAES Latanoprost (Xalatan) 0.005% 2.5ML Drops, 1 DROP OU QHS, (Reported) Lisinopril (Lisinopril) 5 Mg Tablet, 2.5 MG PO DAILY, (Reported) Metoprolol Succinate (Metoprolol Succinate) 50 Mg Tab.er.24h, 50 MG PO DAILY, (Reported) Multivitamins (Thera M Plus Tablet) 1 Each Tablet, 1 TAB PO DAILY, (Reported) Pantoprazole Sodium (Pantoprazole Sodium) 40 Mg Tablet.dr, 40 MG PO DAILY, (Reported) Salmeterol (Serevent Diskus) 50 Mcg Blst.w.dev, 1 PUFF INH BID, (Reported) Scheduled PRN Acetaminophen (Acetaminophen) 325 Mg Tablet, 650 MG PO Q6H PRN for PAIN, (Reported) Albuterol Sulfate (Proair Hfa) 8.5 Gm Hfa.aer.ad, 2 PUFF INH Q6H PRN for SOB/WHEEZING, (Reported) Baclofen (Baclofen) 10 Mg Tablet, 10 MG PO TID PRN for MUSCLE SPASMS, (Reported) Non-Formulary Medication (Mouthkote Solution) 60 Ml [place], 1 SPRAY MT Q1H PRN for DRY MOUTH, (Reported) Oxycodone Hcl (Oxycodone HCl) 20 Mg Tablet, 10 MG PO QIDP PRN for PAIN, (Reported) TAKE ONE-HALF TO ONE TAB QID PRN Polyethylene Glycol 3350 (Polyethylene Glycol 3350) 17 Gm Powd.pack, 17 GRAM PO DAILYPRN PRN for CONSTIPATION, (Reported) Allergies Coded Allergies: TAPE (Verified Allergy, Mild, RASH/BLISTERS, 08/15/19) A-FIB/CHADSVASC A-FIB History Current/History of A-Fib/PAF?: Yes Current PO Anticoag Therapy: No ANNETTE PLAZA MD Jan 21, 2020 11:23
[2020-01-21] MEDS ORDERED: NALOXONE INJ 0.4MG/1ML VIAL (J2310 PER 1MG) IV PRN (11:30)
[2020-01-21] MEDS ORDERED: DEXTROSE 50% 50 ML SYRINGE IV PRN (11:30)
[2020-01-21] MEDS ORDERED: GLUCAGON INJ 1MG VIAL SC PRN (11:30)
[2020-01-21] MEDS ORDERED: GLUCOSE 4GM CHEW TABLET PO PRN (11:30)
[2020-01-21] MEDS ORDERED: BISACODYL 10 MG SUPP PR PRN (11:30)
[2020-01-21] MEDS ORDERED: BISACODYL 5 MG TAB PO PRN (11:30)
[2020-01-21 13:20] VITALS: BP 161/75
[2020-01-21] MEDS: IPRATROPIUM 0.5MG/ALBUTEROL 2.5MG INH SOL UD 3ML (DUONEB) NEB SCH ×2 (14:00→20:03)
[2020-01-21] MEDS ORDERED: PROAAER10 INH (14:42)
[2020-01-21] MEDS ORDERED: ATOR80TA59 PO (14:42)
[2020-01-21] MEDS ORDERED: INSUHUMDS SC (14:42)
[2020-01-21] MEDS ORDERED: OMEG10002 PO (14:42)
[2020-01-21] MEDS ORDERED: AMIO200T3 PO (14:42)
[2020-01-21] MEDS ORDERED: METO1TAB7 PO (14:47)
[2020-01-21] MEDS ORDERED: MOUKOT60 MT (14:49)
[2020-01-21] MEDS: NICOTINE 14 MG/24 HR TRANSDERMAL TD SCH (15:31)
[2020-01-21] MEDS: HumaLOG INSULIN (NovoLOG) PER UNIT SC SCH ×3 (15:31→21:00)
[2020-01-21] MEDS: NAFCILLIN SOD 2 GM in D5W MINI-BAG PLUS 50 ML IV SCH ×2 (17:18→21:31)
[2020-01-21] MEDS: LACTOBACILLUS ACIDOPHILUS CAP (BACID) PO SCH ×2 (17:19→21:29)
[2020-01-21] MEDS: GABAPENTIN 300 MG CAP PO SCH ×2 (17:19→21:30)
[2020-01-21] MEDS: REMEDY PHYTOPLEX Z-GUARD PASTE 113GM TUBE (FROM STOREROOM PRODUCT) TOP SCH ×2 (17:19→21:31)
[2020-01-21] MEDS: BACLOFEN 5MG PER 1/2 TABLET PO SCH ×2 (17:19→21:28)
[2020-01-21] MEDS: SALIVA SUBSTITUTE(MOUTHKOTE) BTL MT SCH ×2 (17:19→21:27)
[2020-01-21] MEDS: SODIUM CHLORIDE 0.9% INJ 10 ML SYR IV SCH (18:32)
[2020-01-21] MEDS: SALMETEROL DISKUS 50MCG INHALER (SEREVENT) INH SCH (20:04)
[2020-01-21 20:07] VITALS: BP 137/62
[2020-01-21] MEDS: DOCUSATE SODIUM 100 MG CAP PO SCH (21:00)
[2020-01-21] MEDS ORDERED: AMIODARONE 200 MG TAB (PACERONE) PO ONE (21:00)
[2020-01-21] MEDS: SENNA 8.6 MG TAB (SENOKOT) PO SCH (21:00)
[2020-01-21] MEDS: SODIUM CHLORIDE 0.9% INJ 10 ML SYR IV PRN (21:27)
[2020-01-21] MEDS: HEPARIN SOD (PORCINE) 5000UNITS/ML 1ML VIAL/SYRINGE SC SCH (21:27)
[2020-01-21] MEDS: VANICREAM MOISTURIZING SKIN CREAM 113GM TUBE TOP SCH (21:29)
[2020-01-21] MEDS: LEVEMIR (INSULIN DETEMIR) 1 UNITS/0.01ML SC SCH (21:29)
[2020-01-21] MEDS: TRIAMCINOLONE ACET 0.1% OINTMENT 15 GM EXT SCH (21:29)
[2020-01-21] MEDS: ACETAMINOPHEN TAB 650MG DOSE (2X325MG) PO PRN (21:30)
[2020-01-21] MEDS: LATANOPROST 0.005% OPHTH SOLN 2.5 ML OU SCH (21:30)
[2020-01-22] MEDS: NAFCILLIN SOD 2 GM in D5W MINI-BAG PLUS 50 ML IV SCH ×6 (01:05→22:19)
[2020-01-22] MEDS: SODIUM CHLORIDE 0.9% INJ 10 ML SYR IV PRN ×3 (01:08→12:41)
[2020-01-22] MEDS: SODIUM CHLORIDE 0.9% INJ 10 ML SYR IV SCH ×2 (05:27→17:35)
[2020-01-22 05:44] VITALS: BP 148/77
[2020-01-22] MEDS: IPRATROPIUM 0.5MG/ALBUTEROL 2.5MG INH SOL UD 3ML (DUONEB) NEB SCH ×3 (07:18→19:47)
--- NOTE | 2020-01-22 07:29 | IPN ---
DATE: 01/21/2020 Aurelio was hospitalized from December 29 until January 13 at [facility] when he was admitted with Staph aureus bacteremia and acute osteomyelitis of the right foot and underwent irrigation and debridement (I/D) and fusion of the foot by Dr. Romano. The surgery was done on 01/03/2020 when he did the I/D. On 01/08/2020, he did a fusion with an external fixator. On January 13, the patient had right rhoda neglect and stroke finding. He was transferred to [place] for evaluation. The patient is now transferred back to acute rehab for continued IV antibiotics and rehabilitation from stroke. The patient has been on IV nafcillin since January 02. His first blood cultures were on December 31 and January 06. Transesophageal echocardiogram was done in [place] which showed aortic valve vegetation. Labs last done on January 12 at [facility], white count was 9, hemoglobin 12.4, hematocrit 42.5 and platelets 278. Sodium 135, potassium 3.7, chloride 97, bicarb 34, BUN 16, creatinine 0.77, glucose 169, lactic acid 1, calcium 9.7, AST 28, ALT 22, alkaline phosphatase 77, ammonia 15, troponin less than 0.02, albumin 2.2, CRP 8.17. First negative blood culture was on 01/01/2020n and second negative blood culture was on 01/07/2020. CT angiogram done on 01/14/2020 shows no large vessel stenosis. CT angiogram of the neck shows severe greater than 90% stenosis involving the proximal bilateral internal carotid arteries. On physical exam, temperature is 96.5, pulse 76, respirations 18, blood pressure 161/75, O2 sat 96% on room air. Heart: Normal S1, S2, distant. No murmurs, rubs or gallops appreciated. Irregular rate. Lungs: Clear. No wheezes, rales or rhonchi. Abdomen is soft, nontender. No hepatosplenomegaly. Bowel sounds are normal. Extremities: No clubbing, cyanosis or edema. Left calf has a decubitus ulcer, clean with granulation tissue. Right foot has an external fixator. Under the external fixator there is an open ulcer with granulation tissue, there is no purulence seen. There is a dressing with Hydrofera Blue which is dried out, that dressing was not removed. He has scaly plaques on his feet. Skin: He has multiple erythematous scaly rashes, especially at the sites of previous tape, including Tegaderm of the PICC line on the right upper extremity measuring about 10 x 8 cm. Neurologic Exam: Alert and oriented x3. Cranial nerves are intact. Upper extremity strength 5/5 bilaterally. Motor strength and grasp are normal. Lower extremity strength, he has limited range of motion of the left hip due to extreme pain which is not new, right lower extremity strength 4/5. IMPRESSION: 1. Aortic valve endocarditis with culture positive for methicillin-sensitive Staphylococcus aureus (MSSA). First positive culture was on 12/30/2019 and first negative culture was on 01/01/2020. The patient has been on IV nafcillin since 01/03/2020 with an anticipated treatment course of 6 weeks with end of therapy scheduled to be February 13, but recommendation from infectious disease (ID) in [place] would be to go to February 24. I will review that note. 2. Acute osteomyelitis of right foot status post I/D and external fixation done by Dr. Romano. Dr. Romano recommended no weightbearing on that right foot. The case has been discussed with him. 3. Contact dermatitis from tape. Would use triamcinolone cream on eczematous areas. Please avoid using tape and use paper tape instead. Continue IV nafcillin 2 grams every 4 hours at least until the end of January. Triamcinolone ointment to rash as needed.
[2020-01-22] MEDS: HumaLOG INSULIN (NovoLOG) PER UNIT SC SCH ×4 (07:30→21:00)
[2020-01-22 08:16] LABS: BASO # 0.1 10^3/uL (0.0-0.2); BASO % 0.8 % (0.0-1.0); EOS # 0.2 10^3/uL (0.0-0.5); EOS % 3.5 % (0.0-3.0); HEMATOCRIT 34.7 % (42.0-52.0); LYMPH # 1.2 10^3/uL (1.5-5.0); LYMPH % 18.1 % (24.0-44.0); MEAN CORPUSCULAR HEMOGLOBIN 24.4 pg (27.0-33.0); MEAN CORPUSCULAR HGB CONC 28.8 g/dl (32.0-36.5); MEAN CORPUSCULAR VOLUME 84.6 fl (80.0-96.0); MONO # 0.9 10^3/uL (0.0-0.8); NEUTROPHILS % 62.5 % (36.0-66.0); PLATELET COUNT, AUTOMATED 269 10^3/uL (150-450); WHITE BLOOD COUNT 6.4 10^3/uL (4.0-10.0)
[2020-01-22 08:37] LABS: ALBUMIN 2.2 GM/DL (3.2-5.2); ALT/SGPT 12 U/L (12-78); BILIRUBIN,TOTAL 0.5 MG/DL (0.2-1.0); BLOOD UREA NITROGEN 23 MG/DL (7-18); CALCIUM LEVEL 8.8 MG/DL (8.8-10.2); CARBON DIOXIDE LEVEL 31 MEQ/L (21-32); CHLORIDE LEVEL 102 MEQ/L (98-107); CREATININE FOR GFR 1.07 MG/DL (0.70-1.30); GLOMERULAR FILTRATION RATE > 60.0 (>49); GLUCOSE, FASTING 90 MG/DL (70-100); POTASSIUM SERUM 3.8 MEQ/L (3.5-5.1); SODIUM LEVEL 140 MEQ/L (136-145); TOTAL PROTEIN 6.4 GM/DL (6.4-8.2)
[2020-01-22] MEDS: SALMETEROL DISKUS 50MCG INHALER (SEREVENT) INH SCH ×2 (09:00→19:44)
[2020-01-22] MEDS: TRIAMCINOLONE ACET 0.1% OINTMENT 15 GM EXT SCH (09:00)
[2020-01-22] MEDS: NICOTINE 14 MG/24 HR TRANSDERMAL TD SCH (09:00)
[2020-01-22] MEDS: DOCUSATE SODIUM 100 MG CAP PO SCH ×2 (09:00→21:00)
[2020-01-22] MEDS: LEVEMIR (INSULIN DETEMIR) 1 UNITS/0.01ML SC SCH ×2 (09:02→22:19)
[2020-01-22] MEDS: HEPARIN SOD (PORCINE) 5000UNITS/ML 1ML VIAL/SYRINGE SC SCH ×2 (09:02→22:20)
[2020-01-22] MEDS: LACTOBACILLUS ACIDOPHILUS CAP (BACID) PO SCH ×3 (09:03→22:17)
[2020-01-22] MEDS: DULoxetine 30 MG CAP (CYMBALTA) PO SCH (09:03)
[2020-01-22] MEDS: GABAPENTIN 300 MG CAP PO SCH ×3 (09:03→22:17)
[2020-01-22] MEDS: ASCORBIC ACID 500 MG TAB PO SCH (09:03)
[2020-01-22] MEDS: AMIODARONE 200 MG TAB (PACERONE) PO SCH ×2 (09:03→22:18)
[2020-01-22] MEDS: PANTOPRAZOLE 40MG TAB (PROTONIX) PO SCH (09:03)
[2020-01-22] MEDS: METOPROLOL SUCC (TopROL XL) 50MG **XL** TAB PO SCH (09:04)
[2020-01-22] MEDS: ASPIRIN 81 MG ENTERIC TAB PO SCH (09:04)
[2020-01-22] MEDS: MULTIVITAMINS/MINERALS THERAP 1 TAB PO SCH (09:04)
[2020-01-22] MEDS: amLODIPine 10 MG TAB PO SCH (09:04)
[2020-01-22] MEDS: SALIVA SUBSTITUTE(MOUTHKOTE) BTL MT SCH ×3 (09:14→21:00)
[2020-01-22] MEDS: REMEDY PHYTOPLEX Z-GUARD PASTE 113GM TUBE (FROM STOREROOM PRODUCT) TOP SCH ×3 (09:15→22:21)
[2020-01-22] MEDS: LISINOPRIL *2.5 MG* TAB PO SCH (09:24)
[2020-01-22] MEDS: BACLOFEN 5MG PER 1/2 TABLET PO SCH ×3 (09:24→22:17)
[2020-01-22] MEDS: ZINC SULFATE 220 MG CAP PO SCH (09:24)
--- NOTE | 2020-01-22 10:41 | IPNPDOC ---
PM&R Progress Note DATE OF SERVICE: Jan 22, 2020 Draw String Knotter Progress Note Subjective: Patient reporting he slept ok last night, he has minimal pain and is ready to do therapy today. Patient reporting he slept well REVIEW OF SYSTEMS: The following is a completed review of systems and has been reviewed. Review of systems otherwise unremarkable. PAIN: Patient self reports no pain EYES: No recent vision changes EARS, NOSE, & THROAT:No throat pain, or dysphagia, or rhinorrhea CARDIOVASCULAR: Denies chest pain or palpitations PULMONARY: Denies shortness of breath GASTROINTESTINAL: Denies constipation/diarrhea GENITOURINARY: denies dysuria MUSCULOSKELETAL:generalized weakness NEUROLOGICAL: +peripheral polyneuropathy HEMATOLOGICAL: denies easy bruising SKIN: right dorsal foot surgical wound, posterior left calf wound, right upper arm rash PSYCHIATRIC: Unremarkable All other review of systems found to be negative. PHYSICAL EXAMINATION: VITAL SIGNS: Please see below. GENERAL: Pleasant and cooperative. No acute distress. HEENT: PERRL. Extraocular movements intact. Clear conjunctiva CARDIOVASCULAR: Irregular rate and rhythm. No murmurs, rubs, or gallops LUNGS: Clear to auscultation bilaterally. No wheezes. No rhonchi ABDOMEN: Soft, nontender, nondistended. Positive bowel sounds. Normal active bowel sounds NEUROLOGICAL: Alert and oriented times three. Cranial nerves II through XII grossly intact. Sensation diminished to light touch bilat LE in stocking pattern EXTREMITIES: 5-\5 strength bilateral upper extremities. 4/5 right hip flexion, knee extension, 3/5 ankle DF, 0/5 EHL 1/5 left hip flexion, 3/5 knee extension 0/5 ankle DF/EHL SKIN: hyperkeratotic calves L>R, posterior left calf with vertical wound with healthy granulation tissue, no exudate -right foot with pins in place, no induration noted around the surgical site -right upper arm erythema in circumscribed square pattern ASSESSMENT:64-year-old M with past medical history of DM and PVD who presents status new onset right sided weakness. PLAN: 1.Rehab- PT/OT advance gait and ADL training, strengthen/stretch/maintain ROM all 4limbs -MECHANICAL SPECIALIST for cognition eval 2. Neuro: patient with recent acute onset right sided hemiparesis, possibly due to TIA as MRI did not confirm ischemic infarct or posterior reversible encephalopathy syndrome- c/u secondary stroke management with statin, ASA, good BP and glycemic control -c/u Cymbalta which will help with motor recovery - peripheral polyneuropathy due to longstanding DM with gait impairment, optimize DM management 3. Cardiac: Afib cu Amiodarone and betablocker, Eliquis on hold due to intraabdominal hematoma -hx of CAD s/p stenting c/u ASA -chronic diastolic CHF grade 2, c/u daily weight, fluid restrict, monitor for fluid overload -HTN c/u lisinopril and amlodipine, medicine consulted to assist in overall management -HLD c/u statin 4. Resp: c/u duonebs, and Serevant, monitor for infection -CLAUDIA may use own cpap 5. Endo: DM with hyperglycemia and peripheral polyneuropathy. c/u Levemir, ISS 6. Pain: chronic low back pain with chronic opioid use, c/u fentanyl, oxycodone, gabapentin, cymbalta, baclofen -naloxone ordered prn 7. GI ppx: protonix 8. DVT ppx; heparin 9. ID: c/u Nafcillin (we do not carry Oxacillin) 2g IV q4h x 6 weeks stop date 02-25-20-IDrecs appreciated -c/u triamcinolone for RUE contact dermatitis -f/u ECHO in 2-4 weeks for known vegetations -vitamin C and zinc added for wound healing 10. Ortho: s/p right foot fusion NWB- will consult Dr. Romano 11. Dispo: TBD Allergies Coded Allergies: TAPE (Verified Allergy, Mild, RASH/BLISTERS, 08/15/19) Vital Signs Vital Signs Date Time Temp Pulse Resp B/P (MAP) Pulse Ox O2 Delivery O2 Flow Rate FiO2 01/22/20 09:04 70 148/77 01/22/20 05:44 97.4 18 96 Nasal Cannula 2.0 Laboratory Data CBC/BMP Laboratory Tests 01/22/20 07:06 Labs 24H Laboratory Tests 2 01/21/20 13:17: Bedside Glucose (Misc Panel) 194H 01/21/20 16:18: Bedside Glucose (Misc Panel) 178H 01/21/20 19:42: Bedside Glucose (Misc Panel) 149H 01/22/20 06:38: Bedside Glucose (Misc Panel) 122H 01/22/20 07:06: Immature Granulocyte % (Auto) 1.1, Neutrophils (%) (Auto) 62.5, Lymphocytes (%) (Auto) 18.1L, Monocytes (%) (Auto) 14.0H, Eosinophils (%) (Auto) 3.5H, Basophils (%) (Auto) 0.8, Neutrophils # (Auto) 4.0, Lymphocytes # (Auto) 1.2L, Monocytes # (Auto) 0.9H, Eosinophils # (Auto) 0.2, Basophils # (Auto) 0.1, Nucleated Red Blood Cells % (auto) 0.0, Anion Gap 7L, Glomerular Filtration Rate > 60.0, Calcium Level 8.8, Total Bilirubin 0.5, Aspartate Amino Transf (AST/SGOT) 20, Alanine Aminotransferase (ALT/SGPT) 12, Alkaline Phosphatase 82, Total Protein 6.4, Albumin 2.2L, Albumin/Globulin Ratio 0.5 Current Medications Current Medications Current Medications Medications (Trade) Dose Ordered Sig/Lexi Route PRN Reason Start Time Stop Time Status Last Admin Dose Admin Acetaminophen (Tylenol Tab) 650 mg Q4HP PRN PO fever/MILD PAIN (PS 1-4) 01/21/20 11:30 01/21/20 21:30 Albuterol/ Ipratropium (Duoneb (Ipr 0.5mg/Alb 2.5mg)) 3 ml RTID NEB 01/21/20 14:00 01/22/20 07:18 Amiodarone HCl (Pacerone, Cordarone) 200 mg BID PO 01/22/20 09:00 01/22/20 09:03 Amlodipine Besylate (Norvasc) 10 mg DAILY PO 01/22/20 09:00 01/22/20 09:04 Ascorbic Acid (Vitamin C) 500 mg DAILY PO 01/22/20 09:00 01/22/20 09:03 Aspirin (Ecotrin) 81 mg DAILY PO 01/22/20 09:00 01/22/20 09:04 Atorvastatin Calcium (Lipitor) 80 mg QHS PO 01/22/20 21:00 Baclofen (Lioresal) 5 mg TID PO 01/21/20 16:00 01/22/20 09:24 Bisacodyl (Dulcolax Suppository) 10 mg DAILYPRN PRN [place] CONSTIPATION 01/21/20 11:30 Bisacodyl (Dulcolax Tab) 5 mg DAILYPRN PRN PO CONSTIPATION 01/21/20 11:30 Dextrose (Dextrose 50%) 25 ml ASDIRECTED PRN IV SEE LABEL COMMENTS 01/21/20 11:30 Docusate Sodium (Colace) 100 mg BID PO 01/21/20 21:00 Duloxetine HCl (Cymbalta) 60 mg DAILY PO 01/22/20 09:00 01/22/20 09:03 Emollient Cream (Vanicream) 1 dose BID TOP 01/21/20 21:00 01/21/20 21:29 Fentanyl (Duragesic) 100 mcg Q72H TOP 01/24/20 09:00 Gabapentin (Neurontin) 600 mg TID PO 01/21/20 16:00 01/22/20 09:03 Glucagon (Glucagon) 1 mg ASDIRECTED PRN SC SEE LABEL COMMENTS 01/21/20 11:30 Glucose (Glucose) 16 GM ASDIRECTED PRN PO SEE LABEL COMMENTS 01/21/20 11:30 Heparin Sodium (Heparin (Flush)) 200 units ASDIRECTED PRN IV SEE LABEL COMMENTS 01/21/20 17:30 01/22/20 09:25 Heparin Sodium (Heparin (Flush)) 200 units PICC IV 01/21/20 18:00 01/22/20 05:27 Heparin Sodium (Porcine) (Heparin) 5,000 units Q12H SC 01/21/20 21:00 01/22/20 09:02 Home Med (Med Rec Complete!) ASDIRECTED XX 01/21/20 15:00 01/21/20 14:51 DC Insulin Detemir (Levemir Insulin) 45 units BID SC 01/21/20 21:00 01/22/20 09:02 Insulin Human Lispro (HumaLOG INSULIN) SEE PROTOCOL TABLE AC SC 01/21/20 12:00 01/21/20 17:20 Insulin Human Lispro (HumaLOG INSULIN) SEE PROTOCOL TABLE QHS SC 01/21/20 21:00 Lactobacillus Acidophilus (Bacid) 1 ea TID PO 01/21/20 16:00 01/22/20 09:03 Latanoprost (Xalatan 0.005% Op Soln) 1 drop QHS OU 01/21/20 21:00 01/21/20 21:30 Lisinopril (Prinivil) 2.5 mg DAILY PO 01/22/20 09:00 01/22/20 09:24 Metoprolol Succinate (TopROL XL) 50 mg DAILY PO 01/22/20 09:00 01/22/20 09:04 Multivitamins (Theragram-M) 1 tab DAILY PO 01/22/20 09:00 01/22/20 09:04 Nafcillin Sodium 2 gm/Dextrose 50 ml @ 50 mls/hr Q4H IV 01/21/20 17:00 02/25/20 16:59 01/22/20 09:27 Naloxone HCl (Narcan) 0.1 mg Q5MP PRN IV RESP. RATE < 10 01/21/20 11:30 Nicotine (Nicoderm Cq 14mg) 1 patch DAILY TD 01/21/20 09:00 Non-Formulary Medication ( See Comment Field Below ) SEE COMMENT SECTION ASDIRECTED XX 01/24/20 09:00 Oxycodone HCl (Roxicodone, Oxyir) 10 mg Q4HP PRN PO SEVERE PAIN (PS 8-10) 01/21/20 11:30 Pantoprazole Sodium (Protonix) 40 mg DAILY PO 01/22/20 09:00 01/22/20 09:03 Saliva Substitute (Mouthkote) 1 sprays TID MT 01/21/20 16:00 01/22/20 09:14 Salmeterol Xinafoate (Serevent Diskus) 1 puff BID INH 01/21/20 21:00 Senna (Senokot) 1 tab QHS PO 01/21/20 21:00 Sodium Chloride (Saline Lock Flush) 10 ml ASDIRECTED PRN IV SEE LABEL COMMENTS 01/21/20 17:30 01/22/20 09:25 Sodium Chloride (Saline Lock Flush) 10 ml PICC IV 01/21/20 18:00 01/22/20 05:27 Triamcinolone Acetonide (Kenalog 0.1% Ointment) rash on arms from tape DAILY EXT 01/21/20 09:00 01/21/20 21:29 Zinc Sulfate (Zinc Sulfate) 220 mg DAILY PO 01/22/20 09:00 01/22/20 09:24 ANNETTE PLAZA MD Jan 22, 2020 10:41
--- NOTE | 2020-01-22 13:46 | CR.PDOC ---
General Date of Consultation: Jan 21, 2020 Consultation HISTORY OF PRESENT ILLNESS: 64M pmh DM2 with peripheral polyneuropathy, CAD with stents, Afib on eliquis, chronic anemia, CLAUDIA on CPAP, CKD, PVD, COPD, chronic diastolic CHF, RLE osteomyelitis s/ pright foot debridement on 01-03-20 and right foot fusion 01-08-20, was treated for MSSA bacteremia and afib with RVR at [facility] then transferred to [facility] 01-14-20 for stroke symptoms of right sided weakness and neglect. At [facility] did not show intracranial hemorrhage and MRI was negative for ischemic pathology, but did show, bilateral occipital white matter and bilateral cerebellar hemispheres without diffusion restriction. These imaging features can be seen in posterior reversible encephalopathy syndrome. SHELBI did show vegetations on the right coronary cusp and aortic valve. He ultimately was taken off of Eliquis due to concerns for his chronic abdominal hematoma and he remained on amiodarone for rate control. Despite have bilateral ICA stenosis neurosurgery did not recommend intervention in the setting of bacteremia and endocarditis. was evaluated by therapy, found to have impairments in mobility and ADLs below his prior level of function and deemed medically appropriate for discharge to ARU on 01-21-20. ALLERGIES: Please see below. HOME MEDICATIONS: Please see below. PAST MEDICAL HISTORY: #DM2/peripheral polyneuropathy #CAD with stents #Afib was on eliquis #chronic anemia #CLAUDIA/CPAP #CKD #PVD #COPD #chronic diastolic CHF #RLE osteomyelitis s/p right foot debridement on 01-03-20 and right foot fusion 01-08-20 #MSSA bacteremia and afib with RVR at [facility] then transferred to [facility] 01-14-20 for stroke symptoms of right sided weakness and neglect. #Bilateral common and external iliac artery angioplasty and stent # left superficial femoral artery angioplasty and stenting # left D1 toe amputation # C6-C7 corpectomy with fusion # cardiac stents # RTC surgery # left eyelid melanoma removal REVIEW OF SYSTEMS: Negative except as per HPI PHYSICAL EXAMINATION: VITAL SIGNS: Please see below. GENERAL: Pleasant and cooperative. No acute distress. HEENT: PERRL. Extraocular movements intact. Clear conjunctiva CARDIOVASCULAR: Irregular rate and rhythm. No murmurs, rubs, or gallops LUNGS: Clear to auscultation bilaterally. No wheezes. No rhonchi ABDOMEN: Soft, nontender, nondistended. Positive bowel sounds. Normal active bowel sounds NEUROLOGICAL: Alert and oriented times three. Cranial nerves II through XII gr ossly intact. LABORATORY DATA: Please see below. ASSESSMENT/PLAN: #TIA - recent acute onset right sided hemiparesis, possibly due to TIA as MRI did not confirm ischemic infarct or posterior reversible encephalopathy syndrome - statin, ASA, good BP and glycemic control #peripheral polyneuropathy - due to longstanding DM with gait impairment, optimize DM management #afib - amiodarone/BB - a/c on hold (Eliquis) due to intraabdominal hematoma #Bacteremia - ID c/s pending - known vegetation on echo - naficillin 2IVq4h - f/u echo 2-4 weeks # CAD s/p stenting c/u ASA #chronic diastolic CHF grade 2, c/u daily weight, fluid restrict, monitor for fluid overload #HTN c/u lisinopril and amlodipine, medicine consulted to assist in overall management #HLD c/u statin #CLAUDIA may use own cpap #DM with hyperglycemia and peripheral polyneuropathy. c/u Levemir, ISS #chronic low back pain with chronic opioid use, c/u fentanyl, oxycodone, gabapentin, cymbalta, baclofen -naloxone ordered prn #GI ppx: protonix #DVT ppx; heparin #s/p right foot fusion NWB - follow podiatry Dr. Romano Vital Signs/I&O Vital Signs Date Time Temp Pulse Resp B/P (MAP) Pulse Ox O2 Delivery O2 Flow Rate FiO2 01/22/20 11:17 16 Nasal Cannula 2.0 01/22/20 09:04 70 148/77 01/22/20 05:44 97.4 96 I&O- Last 24 Hours up to 6 AM 01/22/20 06:00 Intake Total 700 ml Output Total 475 ml Balance 225 ml Laboratory Data Labs 24H Laboratory Tests 2 01/21/20 16:18: Bedside Glucose (Misc Panel) 178H 01/21/20 19:42: Bedside Glucose (Misc Panel) 149H 01/22/20 06:38: Bedside Glucose (Misc Panel) 122H 01/22/20 07:06: Immature Granulocyte % (Auto) 1.1, Neutrophils (%) (Auto) 62.5, Lymphocytes (%) (Auto) 18.1L, Monocytes (%) (Auto) 14.0H, Eosinophils (%) (Auto) 3.5H, Basophils (%) (Auto) 0.8, Neutrophils # (Auto) 4.0, Lymphocytes # (Auto) 1.2L, Monocytes # (Auto) 0.9H, Eosinophils # (Auto) 0.2, Basophils # (Auto) 0.1, Nucleated Red Blood Cells % (auto) 0.0, Anion Gap 7L, Glomerular Filtration Rate > 60.0, Calcium Level 8.8, Total Bilirubin 0.5, Aspartate Amino Transf (AST/SGOT) 20, Alanine Aminotransferase (ALT/SGPT) 12, Alkaline Phosphatase 82, Total Protein 6.4, Albumin 2.2L, Albumin/Globulin Ratio 0.5 01/22/20 11:59: Bedside Glucose (Misc Panel) 168H CBC/BMP Laboratory Tests 01/22/20 07:06 Allergies Coded Allergies: TAPE (Verified Allergy, Mild, RASH/BLISTERS, 08/15/19) Home Medications Scheduled Amiodarone HCl (Amiodarone HCl) 200 Mg Tablet, 200 MG PO BID, (Reported) GIVE 400MG ON NIGHT OF 01/21/20 Amlodipine Besylate (Amlodipine Besylate) 10 Mg Tablet, 10 MG PO DAILY, (Reported) Aspirin (Aspir 81) 81 Mg Tablet.dr, 81 MG PO DAILY, (Reported) Atorvastatin Calcium (Atorvastatin Calcium) 80 Mg Tablet, 80 MG PO DAILY, (Reported) Atorvastatin Calcium (Atorvastatin Calcium) 80 Mg Tablet, 80 MG PO DAILY, (Reported) Duloxetine Hcl (Duloxetine HCl) 60 Mg Capsule.dr, 60 MG PO DAILY, (Reported) Fentanyl (Fentanyl) 100 Mcg Patch.td72, 100 MCG TOP Q3D, (Reported) CURRENTLY APPLIED TO STOMACH Gabapentin (Gabapentin) 600 Mg Tablet, 600 MG PO TID, (Reported) Insulin Detemir (Levemir Flextouch) 100 Unit/1 Ml Insuln.pen, 45 UNIT SC BID, (Reported) HOLD IF FINGER STICK IS LESS THAN 100 Insulin Human Lispro (Humalog) 100 Unit/1 Ml Vial, 1 DOSE SC WM, (Reported) SLIDING SCLAES Latanoprost (Xalatan) 0.005% 2.5ML Drops, 1 DROP OU QHS, (Reported) Lisinopril (Lisinopril) 5 Mg Tablet, 2.5 MG PO DAILY, (Reported) Metoprolol Succinate (Metoprolol Succinate) 50 Mg Tab.er.24h, 50 MG PO DAILY, (Reported) Multivitamins (Thera M Plus Tablet) 1 Each Tablet, 1 TAB PO DAILY, (Reported) Pantoprazole Sodium (Pantoprazole Sodium) 40 Mg Tablet.dr, 40 MG PO DAILY, (Reported) Salmeterol (Serevent Diskus) 50 Mcg Blst.w.dev, 1 PUFF INH BID, (Reported) Scheduled PRN Acetaminophen (Acetaminophen) 325 Mg Tablet, 650 MG PO Q6H PRN for PAIN, (Reported) Albuterol Sulfate (Proair Hfa) 8.5 Gm Hfa.aer.ad, 2 PUFF INH Q6H PRN for SOB/WHEEZING, (Reported) Baclofen (Baclofen) 10 Mg Tablet, 10 MG PO TID PRN for MUSCLE SPASMS, (Reported) Non-Formulary Medication (Mouthkote Solution) 60 Ml [place], 1 SPRAY MT Q1H PRN for DRY MOUTH, (Reported) Oxycodone Hcl (Oxycodone HCl) 20 Mg Tablet, 10 MG PO QIDP PRN for PAIN, (Reported) TAKE ONE-HALF TO ONE TAB QID PRN Polyethylene Glycol 3350 (Polyethylene Glycol 3350) 17 Gm Powd.pack, 17 GRAM PO DAILYPRN PRN for CONSTIPATION, (Reported) VIKTORIYA GERARDO MD Jan 22, 2020 13:46
[2020-01-22 13:57] LABS: C REACTIVE PROTEIN QUANTITATIV 2.67 MG/DL (0.00-0.30)
[2020-01-22 14:00] VITALS: BP 135/76
[2020-01-22] MEDS: VANICREAM MOISTURIZING SKIN CREAM 113GM TUBE TOP SCH ×2 (14:22→22:22)
[2020-01-22] MEDS: oxyCODONE 5MG TAB PO PRN (17:34)
[2020-01-22 21:00] VITALS: BP 135/66
[2020-01-22] MEDS: SENNA 8.6 MG TAB (SENOKOT) PO SCH (21:00)
[2020-01-22] MEDS: ATORVASTATIN 20 MG TAB PO SCH (22:18)
[2020-01-22] MEDS: LATANOPROST 0.005% OPHTH SOLN 2.5 ML OU SCH (22:20)
[2020-01-23] MEDS: NAFCILLIN SOD 2 GM in D5W MINI-BAG PLUS 50 ML IV SCH ×6 (01:43→21:39)
[2020-01-23 05:51] VITALS: BP 134/68
[2020-01-23] MEDS: SODIUM CHLORIDE 0.9% INJ 10 ML SYR IV SCH ×2 (06:00→16:51)
[2020-01-23] MEDS: SALMETEROL DISKUS 50MCG INHALER (SEREVENT) INH SCH ×2 (07:30→18:06)
[2020-01-23] MEDS: HumaLOG INSULIN (NovoLOG) PER UNIT SC SCH ×4 (07:30→21:00)
[2020-01-23] MEDS: IPRATROPIUM 0.5MG/ALBUTEROL 2.5MG INH SOL UD 3ML (DUONEB) NEB SCH ×3 (08:00→18:12)
--- NOTE | 2020-01-23 08:39 | IPN ---
DATE OF ADMISSION: 01/22/2020 The patient has been examined. He is resting comfortably. He denies any pain in his foot. Vitals are reviewed. He has remained afebrile. Laboratory review: White blood cell count was 6.4, CPR 2.67. Right lower foot examination: External fixators are intact and in stable position without loosening. The wound is generally granular around the dorsal aspect of the right foot. There is no erythema or edema. ASSESSMENT: 64-year-old male with Charcot and osteomyelitis status post amputation of the tarsal joints. PLAN: He is to have Hydrofera BLUE and OptiLock covered with gauze to right foot. He is to remain non-weightbearing. [facility]
[2020-01-23] MEDS: LEVEMIR (INSULIN DETEMIR) 1 UNITS/0.01ML SC SCH ×2 (08:43→21:39)
[2020-01-23] MEDS: BACLOFEN 5MG PER 1/2 TABLET PO SCH ×3 (08:43→21:38)
[2020-01-23] MEDS: LACTOBACILLUS ACIDOPHILUS CAP (BACID) PO SCH ×3 (08:45→21:37)
[2020-01-23] MEDS: HEPARIN SOD (PORCINE) 5000UNITS/ML 1ML VIAL/SYRINGE SC SCH ×2 (08:45→21:36)
[2020-01-23] MEDS: MULTIVITAMINS/MINERALS THERAP 1 TAB PO SCH (08:45)
[2020-01-23] MEDS: ASPIRIN 81 MG ENTERIC TAB PO SCH (08:45)
[2020-01-23] MEDS: ZINC SULFATE 220 MG CAP PO SCH (08:45)
[2020-01-23] MEDS: DULoxetine 30 MG CAP (CYMBALTA) PO SCH (08:45)
[2020-01-23] MEDS: ASCORBIC ACID 500 MG TAB PO SCH (08:45)
[2020-01-23] MEDS: GABAPENTIN 300 MG CAP PO SCH ×3 (08:45→21:37)
[2020-01-23] MEDS: PANTOPRAZOLE 40MG TAB (PROTONIX) PO SCH (08:46)
[2020-01-23] MEDS: DOCUSATE SODIUM 100 MG CAP PO SCH (08:46)
[2020-01-23] MEDS: AMIODARONE 200 MG TAB (PACERONE) PO SCH ×2 (08:47→21:37)
[2020-01-23] MEDS: LISINOPRIL *2.5 MG* TAB PO SCH (08:48)
[2020-01-23] MEDS: METOPROLOL SUCC (TopROL XL) 50MG **XL** TAB PO SCH (08:49)
[2020-01-23] MEDS: amLODIPine 10 MG TAB PO SCH (08:50)
[2020-01-23] MEDS: REMEDY PHYTOPLEX Z-GUARD PASTE 113GM TUBE (FROM STOREROOM PRODUCT) TOP SCH ×3 (08:50→21:43)
[2020-01-23] MEDS: SALIVA SUBSTITUTE(MOUTHKOTE) BTL MT SCH ×3 (08:51→21:00)
[2020-01-23] MEDS: TRIAMCINOLONE ACET 0.1% OINTMENT 15 GM EXT SCH (08:52)
[2020-01-23] MEDS: NICOTINE 14 MG/24 HR TRANSDERMAL TD SCH (08:52)
[2020-01-23] MEDS: VANICREAM MOISTURIZING SKIN CREAM 113GM TUBE TOP SCH ×2 (08:52→21:45)
[2020-01-23] MEDS: oxyCODONE 5MG TAB PO PRN ×2 (11:54→21:35)
[2020-01-23] MEDS: SODIUM CHLORIDE 0.9% INJ 10 ML SYR IV PRN (13:47)
[2020-01-23 14:00] VITALS: BP 131/70
[2020-01-23] MEDS: NYSTATIN 100,000 UNITS/GM TOPICAL PWD 15 GM TOP SCH ×2 (16:50→21:41)
[2020-01-23 21:29] VITALS: BP 140/88
[2020-01-23] MEDS: SENNA 8.6 MG TAB (SENOKOT) PO SCH (21:38)
[2020-01-23] MEDS: ATORVASTATIN 20 MG TAB PO SCH (21:38)
[2020-01-23] MEDS: LATANOPROST 0.005% OPHTH SOLN 2.5 ML OU SCH (21:40)
[2020-01-24] MEDS: NAFCILLIN SOD 2 GM in D5W MINI-BAG PLUS 50 ML IV SCH ×6 (01:53→22:34)
[2020-01-24] MEDS: SODIUM CHLORIDE 0.9% INJ 10 ML SYR IV SCH ×2 (06:00→17:18)
[2020-01-24 06:57] VITALS: BP 120/62
[2020-01-24] MEDS: IPRATROPIUM 0.5MG/ALBUTEROL 2.5MG INH SOL UD 3ML (DUONEB) NEB SCH ×3 (07:19→19:36)
[2020-01-24] MEDS: HumaLOG INSULIN (NovoLOG) PER UNIT SC SCH ×4 (07:30→22:37)
[2020-01-24] MEDS: DULoxetine 30 MG CAP (CYMBALTA) PO SCH (08:19)
[2020-01-24] MEDS: HEPARIN SOD (PORCINE) 5000UNITS/ML 1ML VIAL/SYRINGE SC SCH ×2 (08:19→22:36)
[2020-01-24] MEDS: MULTIVITAMINS/MINERALS THERAP 1 TAB PO SCH (08:19)
[2020-01-24] MEDS: ASPIRIN 81 MG ENTERIC TAB PO SCH (08:20)
[2020-01-24] MEDS: BACLOFEN 5MG PER 1/2 TABLET PO SCH ×3 (08:20→22:35)
[2020-01-24] MEDS: GABAPENTIN 300 MG CAP PO SCH ×3 (08:20→22:35)
[2020-01-24] MEDS: amLODIPine 10 MG TAB PO SCH (08:20)
[2020-01-24] MEDS: LEVEMIR (INSULIN DETEMIR) 1 UNITS/0.01ML SC SCH ×2 (08:20→22:37)
[2020-01-24] MEDS: AMIODARONE 200 MG TAB (PACERONE) PO SCH ×2 (08:21→22:36)
[2020-01-24] MEDS: ASCORBIC ACID 500 MG TAB PO SCH (08:21)
[2020-01-24] MEDS: LISINOPRIL *2.5 MG* TAB PO SCH (08:21)
[2020-01-24] MEDS: METOPROLOL SUCC (TopROL XL) 50MG **XL** TAB PO SCH (08:21)
[2020-01-24] MEDS: PANTOPRAZOLE 40MG TAB (PROTONIX) PO SCH (08:21)
[2020-01-24] MEDS: LACTOBACILLUS ACIDOPHILUS CAP (BACID) PO SCH ×3 (08:21→22:36)
[2020-01-24] MEDS: ZINC SULFATE 220 MG CAP PO SCH (08:22)
[2020-01-24] MEDS: fentaNYL 100 MCG/HR PATCH TOP SCH (08:24)
[2020-01-24] MEDS: NICOTINE 14 MG/24 HR TRANSDERMAL TD SCH (08:38)
[2020-01-24] MEDS: NYSTATIN 100,000 UNITS/GM TOPICAL PWD 15 GM TOP SCH ×2 (08:39→22:38)
[2020-01-24] MEDS: TRIAMCINOLONE ACET 0.1% OINTMENT 15 GM EXT SCH (08:39)
[2020-01-24] MEDS: REMEDY PHYTOPLEX Z-GUARD PASTE 113GM TUBE (FROM STOREROOM PRODUCT) TOP SCH ×3 (08:40→22:38)
[2020-01-24] MEDS: SALIVA SUBSTITUTE(MOUTHKOTE) BTL MT SCH ×2 (09:00→17:17)
[2020-01-24] MEDS ORDERED: FENTANYL REMOVAL DOCUMENTATION MISC XX SCH (09:00)
[2020-01-24] MEDS: SALMETEROL DISKUS 50MCG INHALER (SEREVENT) INH SCH ×2 (09:00→19:34)
[2020-01-24 09:39] LABS: BASO % 0.6 % (0.0-1.0); EOS # 0.3 10^3/uL (0.0-0.5); EOS % 4.8 % (0.0-3.0); HEMATOCRIT 33.3 % (42.0-52.0); HEMOGLOBIN 9.6 g/dl (13.5-17.5); LYMPH # 1.3 10^3/uL (1.5-5.0); LYMPH % 18.2 % (24.0-44.0); MEAN CORPUSCULAR HEMOGLOBIN 24.6 pg (27.0-33.0); MEAN CORPUSCULAR HGB CONC 28.8 g/dl (32.0-36.5); MEAN CORPUSCULAR VOLUME 85.4 fl (80.0-96.0); MONO # 0.8 10^3/uL (0.0-0.8); MONO % 11.1 % (0.0-5.0); NEUTROPHILS # 4.6 10^3/uL (1.5-8.5); NEUTROPHILS % 63.9 % (36.0-66.0); PLATELET COUNT, AUTOMATED 267 10^3/uL (150-450); WHITE BLOOD COUNT 7.1 10^3/uL (4.0-10.0)
[2020-01-24 10:15] LABS: BLOOD UREA NITROGEN 20 MG/DL (7-18); C REACTIVE PROTEIN QUANTITATIV 2.88 MG/DL (0.00-0.30); CALCIUM LEVEL 8.5 MG/DL (8.8-10.2); CARBON DIOXIDE LEVEL 33 MEQ/L (21-32); CHLORIDE LEVEL 105 MEQ/L (98-107); CREATININE FOR GFR 0.84 MG/DL (0.70-1.30); GLOMERULAR FILTRATION RATE > 60.0 (>49); GLUCOSE, FASTING 75 MG/DL (70-100); POTASSIUM SERUM 3.9 MEQ/L (3.5-5.1); SODIUM LEVEL 143 MEQ/L (136-145)
[2020-01-24] MEDS: oxyCODONE 5MG TAB PO PRN ×2 (12:39→22:35)
[2020-01-24 14:00] VITALS: BP 143/77
--- NOTE | 2020-01-24 16:01 | IPN ---
DATE: 01/23/2020 He denies any new complaints today except being sore from doing physical therapy. He is not weightbearing on his right foot. He has no nausea, vomiting or diarrhea. No fever or chills. Rash from tape on his upper extremity has improved with steroid cream. LABORATORY: White count is 6.4, hemoglobin 10, hematocrit 34.7, platelets 269, 62% neutrophils, 18% lymphocytes, 14% monocytes. Sodium 140, potassium 3.8, chloride 102, bicarb 31. BUN 23, creatinine 1.07, glucose 90, calcium 8.8, AST 20, ALT 12, alk phos 82, CRP 2.67. Heart: Normal S1-S2. No murmurs, rubs or gallops. Lungs are clear. No wheezes or rhonchi. Abdomen: Soft, nontender. Extremities: Right foot has external fixator. No redness. Left leg has calf ulcer that was not examined today, but according to nursing it is clean. Blood cultures were positive on 12/29, Methicillin-Susceptible Staphylococcus aureus (MSSA) on 12/30 but negative on 12/31. MEDICATIONS: IV nafcillin. Currently day number 15 of appropriate antibiotics, showing negative cultures which were on 12/31. The patient should be able to end his antibiotic therapy on February 11, which would be a total of 6 weeks from negative cultures. IMPRESSION: 1. Acute osteomyelitis of the right foot status post removal of tarsal joints with an external fixator with culture positive for MSSA. The patient needs 6 weeks of IV antibiotics, end of therapy will be February 11. 2. Aortic valve endocarditis on IV nafcillin with vegetation. The patient again should finish 6 weeks of antibiotic therapy until February 11. His first negative culture was December 31. 3. Left hip avascular necrosis with difficulty ambulating due to right external fixator and left hip avascular necrosis. 4. Contact dermatitis related to tape. Avoid any tape as much as possible as the patient always breaks out with severe dermatitis. PLAN: Continue IV nafcillin at current dose 2 grams every 4 hours with end of therapy 02/11.
[2020-01-24] MEDS: VANICREAM MOISTURIZING SKIN CREAM 113GM TUBE TOP SCH ×2 (17:17→22:39)
[2020-01-24 22:00] VITALS: BP 142/70
[2020-01-24] MEDS: SENNA 8.6 MG TAB (SENOKOT) PO SCH (22:36)
[2020-01-24] MEDS: ATORVASTATIN 20 MG TAB PO SCH (22:36)
[2020-01-24] MEDS: LATANOPROST 0.005% OPHTH SOLN 2.5 ML OU SCH (22:38)
[2020-01-25] MEDS: SALIVA SUBSTITUTE(MOUTHKOTE) BTL MT SCH ×4 (00:10→20:45)
[2020-01-25] MEDS: NAFCILLIN SOD 2 GM in D5W MINI-BAG PLUS 50 ML IV SCH ×6 (02:35→20:38)
[2020-01-25] MEDS: SODIUM CHLORIDE 0.9% INJ 10 ML SYR IV PRN ×2 (02:52→20:42)
[2020-01-25] MEDS: SODIUM CHLORIDE 0.9% INJ 10 ML SYR IV SCH ×2 (05:38→17:11)
[2020-01-25 06:06] VITALS: BP 150/75
[2020-01-25] MEDS: IPRATROPIUM 0.5MG/ALBUTEROL 2.5MG INH SOL UD 3ML (DUONEB) NEB SCH ×3 (07:16→20:00)
[2020-01-25] MEDS: SALMETEROL DISKUS 50MCG INHALER (SEREVENT) INH SCH ×2 (07:16→20:18)
[2020-01-25] MEDS: HumaLOG INSULIN (NovoLOG) PER UNIT SC SCH ×4 (07:30→20:45)
[2020-01-25] MEDS: PANTOPRAZOLE 40MG TAB (PROTONIX) PO SCH (08:28)
[2020-01-25] MEDS: ASPIRIN 81 MG ENTERIC TAB PO SCH (08:28)
[2020-01-25] MEDS: LACTOBACILLUS ACIDOPHILUS CAP (BACID) PO SCH ×3 (08:28→20:38)
[2020-01-25] MEDS: BACLOFEN 5MG PER 1/2 TABLET PO SCH ×3 (08:28→20:38)
[2020-01-25] MEDS: ASCORBIC ACID 500 MG TAB PO SCH (08:28)
[2020-01-25] MEDS: ZINC SULFATE 220 MG CAP PO SCH (08:28)
[2020-01-25] MEDS: MULTIVITAMINS/MINERALS THERAP 1 TAB PO SCH (08:28)
[2020-01-25] MEDS: DULoxetine 30 MG CAP (CYMBALTA) PO SCH (08:28)
[2020-01-25] MEDS: GABAPENTIN 300 MG CAP PO SCH ×3 (08:28→20:39)
[2020-01-25] MEDS: amLODIPine 10 MG TAB PO SCH (08:28)
[2020-01-25] MEDS: HEPARIN SOD (PORCINE) 5000UNITS/ML 1ML VIAL/SYRINGE SC SCH ×2 (08:29→20:38)
[2020-01-25] MEDS: AMIODARONE 200 MG TAB (PACERONE) PO SCH ×2 (08:29→20:38)
[2020-01-25] MEDS: METOPROLOL SUCC (TopROL XL) 50MG **XL** TAB PO SCH (08:29)
[2020-01-25] MEDS: LISINOPRIL *2.5 MG* TAB PO SCH (08:29)
[2020-01-25] MEDS: TRIAMCINOLONE ACET 0.1% OINTMENT 15 GM EXT SCH (08:30)
[2020-01-25] MEDS: NICOTINE 14 MG/24 HR TRANSDERMAL TD SCH (08:30)
[2020-01-25] MEDS: VANICREAM MOISTURIZING SKIN CREAM 113GM TUBE TOP SCH ×2 (08:31→20:41)
[2020-01-25] MEDS: REMEDY PHYTOPLEX Z-GUARD PASTE 113GM TUBE (FROM STOREROOM PRODUCT) TOP SCH ×3 (08:31→20:41)
[2020-01-25] MEDS: NYSTATIN 100,000 UNITS/GM TOPICAL PWD 15 GM TOP SCH ×2 (08:31→20:41)
[2020-01-25] MEDS: LEVEMIR (INSULIN DETEMIR) 1 UNITS/0.01ML SC SCH ×2 (08:32→20:38)
[2020-01-25] MEDS: oxyCODONE 5MG TAB PO PRN (13:00)
[2020-01-25 14:00] VITALS: BP 115/58
[2020-01-25 20:08] VITALS: BP 157/74
[2020-01-25] MEDS: SENNA 8.6 MG TAB (SENOKOT) PO SCH (20:39)
[2020-01-25] MEDS: ATORVASTATIN 20 MG TAB PO SCH (20:39)
[2020-01-25] MEDS: LATANOPROST 0.005% OPHTH SOLN 2.5 ML OU SCH (20:40)
[2020-01-26] MEDS: NAFCILLIN SOD 2 GM in D5W MINI-BAG PLUS 50 ML IV SCH ×6 (00:49→20:35)
[2020-01-26] MEDS: ACETAMINOPHEN TAB 650MG DOSE (2X325MG) PO PRN ×2 (02:30→20:36)
[2020-01-26] MEDS: SODIUM CHLORIDE 0.9% INJ 10 ML SYR IV SCH ×2 (05:26→17:41)
[2020-01-26 05:49] VITALS: BP 140/60
--- NOTE | 2020-01-26 06:52 | IPNPDOC ---
Text Note Date of Service The patient was seen on 01/25/20. NOTE Subjective: Patient seen on bedside 01/25/2020. He was seen while taking part in physical therapy. He reports having left-sided hip pain and feels sore because of the physical therapy. He denies having any other complaints. He has no nausea, vomiting or diarrhea. No fever or chills. He report sleeping well, normal bowel movement and had breakfast. Objective: General: Patient is cooperative, no apparent distress. HEENT: PERRLA, clear conjunctiva. Extraocular movements intact Cardiovascular: S1, S heard, no murmur, rub, or gallop. Respiratory: Chest is clear to auscultation bilaterally, No rhonchi, wheezes or rubs. Abdomen: Soft, bowel sounds positive, no bruits. No tenderness on palpation. Extremities: Limited examination as patient was participating in PT, no pedal edema, limited sensation over the toes up to the mid-calf. 5/ 5 strength bilateral upper extremities. Central nervous system (CHILD STUDY TEAM DIRECTOR): Awake, alert and fully oriented. Skin: His legs are dry. Right foot with pins in place, no edema or redness noted. ASSESSMENT: 64 years old male was hospitalized from 12/30/19 to01/14/20 [facility] with staph aureus bacteremia and acute osteomyelitis of right foot. He later Underwent irrigation, debridement and had fusion of the foot. On January 13, he had a right hemiparalysis and strokelike symptoms. When he was transferred to [place] for evaluation. Was transferred back for rehabilitation from stroke and continuing IV antibiotics. PLAN: 1. TIA - Rehabilitation PT/ OT advance gait and ADL training to gain strength in all 4 limbs. - Will continue statin, ASA, good BP and glycemic control and Cymbalta for motor recovery. 2. Acute osteomyelitis: - S/P removal tarsal joints from right foot with external fixation. - BCx positive for MSSA. He was started on IV nafcillin 2 g every 4 hours on January 02 [end of antibiotics 02/12/2020] 3. Aortic valve endocarditis: - He had positive blood cultures on 12/29 and 12/30 positive for MSSA, his first negative was 12/31 and 01/06. - He was started on IV antibiotics, nafcillin 2 g every 4 hours [end of antibiotics 02/12/2020]. 4. Diabetes mellitus with peripheral polyneuropathy -Long-standing history of diabetes mellitus with gait impairment, optimize DM management. - Continue Levemir, insulin sliding scale getting 6-8 units of insulin per day. 5. Atrial fibrillation with RVR - Continue amiodarone and beta chio for rate control. - Hold Eliquis due to intra-abdominal hematoma 6. CAD s/p stenting: -Will continue ASA 7. Chronic diastolic CHF grade 2: -c/u daily weight, fluid restrict, monitor for fluid overload. 8. HTN: Will continue lisinopril and amlodipine 9. HLD: Will continue statins 10. CLAUDIA: on cpap 11. Chronic low back pain: -Will continue chronic opioid use, c/u fentanyl, oxycodone, gabapentin, cymbalta, baclofen, naloxone ordered prn 12. GI ppx: protonix 13. DVT ppx; heparin 14. Contact dermatitis: Use triamcinolone cream as needed Continue triamcinolone for right upper extremity 14. s/p right foot fusion with an external fixator - follow podiatry Dr. Rosalina FIGUEROA,Yohana, I+O VSYohana, I+O Vital Signs Date Time Temp Pulse Resp B/P (MAP) Pulse Ox O2 Delivery O2 Flow Rate FiO2 01/26/20 05:49 96.9 64 18 140/60 (86) 95 Room Air 01/24/20 06:57 2.0 I&O- Last 24 Hours up to 6 AM 01/26/20 06:00 Intake Total 1440 ml Output Total 2700 ml Balance -1260 ml VIKTORIYA GERARDO MD Jan 26, 2020 06:52
[2020-01-26] MEDS: SALMETEROL DISKUS 50MCG INHALER (SEREVENT) INH SCH ×2 (07:18→18:21)
[2020-01-26] MEDS: IPRATROPIUM 0.5MG/ALBUTEROL 2.5MG INH SOL UD 3ML (DUONEB) NEB SCH ×3 (07:19→18:21)
[2020-01-26] MEDS: HumaLOG INSULIN (NovoLOG) PER UNIT SC SCH ×4 (08:52→20:37)
[2020-01-26] MEDS: LEVEMIR (INSULIN DETEMIR) 1 UNITS/0.01ML SC SCH ×2 (08:52→20:34)
[2020-01-26] MEDS: BACLOFEN 5MG PER 1/2 TABLET PO SCH ×3 (08:53→20:35)
[2020-01-26] MEDS: GABAPENTIN 300 MG CAP PO SCH ×3 (08:53→20:35)
[2020-01-26] MEDS: DULoxetine 30 MG CAP (CYMBALTA) PO SCH (08:53)
[2020-01-26] MEDS: MULTIVITAMINS/MINERALS THERAP 1 TAB PO SCH (08:53)
[2020-01-26] MEDS: ASPIRIN 81 MG ENTERIC TAB PO SCH (08:53)
[2020-01-26] MEDS: HEPARIN SOD (PORCINE) 5000UNITS/ML 1ML VIAL/SYRINGE SC SCH ×2 (08:53→20:35)
[2020-01-26] MEDS: LISINOPRIL *2.5 MG* TAB PO SCH (08:53)
[2020-01-26] MEDS: LACTOBACILLUS ACIDOPHILUS CAP (BACID) PO SCH ×3 (08:54→20:35)
[2020-01-26] MEDS: METOPROLOL SUCC (TopROL XL) 50MG **XL** TAB PO SCH (08:54)
[2020-01-26] MEDS: ASCORBIC ACID 500 MG TAB PO SCH (08:54)
[2020-01-26] MEDS: REMEDY PHYTOPLEX Z-GUARD PASTE 113GM TUBE (FROM STOREROOM PRODUCT) TOP SCH ×3 (08:54→20:37)
[2020-01-26] MEDS: VANICREAM MOISTURIZING SKIN CREAM 113GM TUBE TOP SCH ×2 (08:54→20:36)
[2020-01-26] MEDS: amLODIPine 10 MG TAB PO SCH (08:54)
[2020-01-26] MEDS: AMIODARONE 200 MG TAB (PACERONE) PO SCH ×2 (08:54→20:35)
[2020-01-26] MEDS: ZINC SULFATE 220 MG CAP PO SCH (08:54)
[2020-01-26] MEDS: PANTOPRAZOLE 40MG TAB (PROTONIX) PO SCH (08:54)
[2020-01-26] MEDS: NICOTINE 14 MG/24 HR TRANSDERMAL TD SCH (08:55)
[2020-01-26] MEDS: NYSTATIN 100,000 UNITS/GM TOPICAL PWD 15 GM TOP SCH ×2 (08:55→20:36)
[2020-01-26] MEDS: TRIAMCINOLONE ACET 0.1% OINTMENT 15 GM EXT SCH (08:55)
[2020-01-26] MEDS: SALIVA SUBSTITUTE(MOUTHKOTE) BTL MT SCH ×3 (08:56→20:37)
[2020-01-26 14:00] VITALS: BP 142/68
[2020-01-26] MEDS: oxyCODONE 5MG TAB PO PRN (15:57)
[2020-01-26 20:00] VITALS: BP 153/76
[2020-01-26] MEDS: ATORVASTATIN 20 MG TAB PO SCH (20:35)
[2020-01-26] MEDS: SENNA 8.6 MG TAB (SENOKOT) PO SCH (20:35)
[2020-01-26] MEDS: LATANOPROST 0.005% OPHTH SOLN 2.5 ML OU SCH (20:37)
[2020-01-27] MEDS: NAFCILLIN SOD 2 GM in D5W MINI-BAG PLUS 50 ML IV SCH ×6 (01:04→20:37)
[2020-01-27] MEDS: SODIUM CHLORIDE 0.9% INJ 10 ML SYR IV SCH ×2 (05:21→17:02)
[2020-01-27 05:30] VITALS: BP 137/71
[2020-01-27 06:49] LABS: BASO # 0.1 10^3/uL (0.0-0.2); BASO % 1.2 % (0.0-1.0); EOS # 0.4 10^3/uL (0.0-0.5); EOS % 5.5 % (0.0-3.0); HEMATOCRIT 34.4 % (42.0-52.0); HEMOGLOBIN 10.1 g/dl (13.5-17.5); LYMPH # 1.8 10^3/uL (1.5-5.0); LYMPH % 26.7 % (24.0-44.0); MEAN CORPUSCULAR HGB CONC 29.4 g/dl (32.0-36.5); MEAN CORPUSCULAR VOLUME 85.1 fl (80.0-96.0); MONO # 0.8 10^3/uL (0.0-0.8); MONO % 11.5 % (0.0-5.0); NEUTROPHILS # 3.6 10^3/uL (1.5-8.5); NEUTROPHILS % 54.1 % (36.0-66.0); PLATELET COUNT, AUTOMATED 185 10^3/uL (150-450); RED BLOOD COUNT 4.04 10^6/uL (4.30-6.10); WHITE BLOOD COUNT 6.7 10^3/uL (4.0-10.0)
[2020-01-27 07:18] LABS: BLOOD UREA NITROGEN 12 MG/DL (7-18); CALCIUM LEVEL 8.6 MG/DL (8.8-10.2); CARBON DIOXIDE LEVEL 36 MEQ/L (21-32); CHLORIDE LEVEL 103 MEQ/L (98-107); CREATININE FOR GFR 0.76 MG/DL (0.70-1.30); GLOMERULAR FILTRATION RATE > 60.0 (>49); GLUCOSE, FASTING 78 MG/DL (70-100); POTASSIUM SERUM 3.3 MEQ/L (3.5-5.1); SODIUM LEVEL 142 MEQ/L (136-145)
[2020-01-27] MEDS: HumaLOG INSULIN (NovoLOG) PER UNIT SC SCH ×4 (07:30→20:41)
[2020-01-27] MEDS: SALMETEROL DISKUS 50MCG INHALER (SEREVENT) INH SCH ×2 (07:33→19:19)
[2020-01-27] MEDS: IPRATROPIUM 0.5MG/ALBUTEROL 2.5MG INH SOL UD 3ML (DUONEB) NEB SCH ×3 (07:36→19:19)
[2020-01-27] MEDS: NICOTINE 14 MG/24 HR TRANSDERMAL TD SCH (08:13)
[2020-01-27] MEDS: LEVEMIR (INSULIN DETEMIR) 1 UNITS/0.01ML SC SCH ×2 (09:00→20:38)
[2020-01-27] MEDS: HEPARIN SOD (PORCINE) 5000UNITS/ML 1ML VIAL/SYRINGE SC SCH ×2 (09:22→21:08)
[2020-01-27] MEDS: GABAPENTIN 300 MG CAP PO SCH ×3 (09:22→20:36)
[2020-01-27] MEDS: ASCORBIC ACID 500 MG TAB PO SCH (09:22)
[2020-01-27] MEDS: ZINC SULFATE 220 MG CAP PO SCH (09:22)
[2020-01-27] MEDS: AMIODARONE 200 MG TAB (PACERONE) PO SCH ×2 (09:23→20:34)
[2020-01-27] MEDS: amLODIPine 10 MG TAB PO SCH (09:23)
[2020-01-27] MEDS: LISINOPRIL *2.5 MG* TAB PO SCH (09:23)
[2020-01-27] MEDS: ASPIRIN 81 MG ENTERIC TAB PO SCH (09:23)
[2020-01-27] MEDS: PANTOPRAZOLE 40MG TAB (PROTONIX) PO SCH (09:23)
[2020-01-27] MEDS: LACTOBACILLUS ACIDOPHILUS CAP (BACID) PO SCH ×3 (09:23→20:35)
[2020-01-27] MEDS: METOPROLOL SUCC (TopROL XL) 50MG **XL** TAB PO SCH (09:23)
[2020-01-27] MEDS: MULTIVITAMINS/MINERALS THERAP 1 TAB PO SCH (09:23)
[2020-01-27] MEDS: BACLOFEN 5MG PER 1/2 TABLET PO SCH ×3 (09:23→20:36)
[2020-01-27] MEDS: DULoxetine 30 MG CAP (CYMBALTA) PO SCH (09:23)
[2020-01-27] MEDS: oxyCODONE 5MG TAB PO PRN ×3 (09:24→21:09)
[2020-01-27] MEDS: fentaNYL 100 MCG/HR PATCH TOP SCH (09:25)
[2020-01-27] MEDS: REMEDY PHYTOPLEX Z-GUARD PASTE 113GM TUBE (FROM STOREROOM PRODUCT) TOP SCH ×3 (09:33→20:39)
[2020-01-27] MEDS: VANICREAM MOISTURIZING SKIN CREAM 113GM TUBE TOP SCH ×2 (09:33→20:40)
[2020-01-27] MEDS: TRIAMCINOLONE ACET 0.1% OINTMENT 15 GM EXT SCH (09:34)
[2020-01-27] MEDS: SALIVA SUBSTITUTE(MOUTHKOTE) BTL MT SCH ×3 (09:34→20:37)
[2020-01-27] MEDS: NYSTATIN 100,000 UNITS/GM TOPICAL PWD 15 GM TOP SCH ×2 (09:34→20:39)
--- NOTE | 2020-01-27 10:30 | IPNPDOC ---
PM&R Progress Note DATE OF SERVICE: Jan 27, 2020 Engine Research Engineer Progress Note Subjective: Patient reporting he would like call with his breakfast. He otherwise thinks his bed mobility is improving and is open to trying to stand on just his left leg. REVIEW OF SYSTEMS: The following is a completed review of systems and has been reviewed. Review of systems otherwise unremarkable. PAIN: Patient self reports no pain EYES: No recent vision changes EARS, NOSE, & THROAT:No throat pain, or dysphagia, or rhinorrhea CARDIOVASCULAR: Denies chest pain or palpitations PULMONARY: Denies shortness of breath GASTROINTESTINAL: Denies constipation/diarrhea GENITOURINARY: denies dysuria MUSCULOSKELETAL:generalized weakness NEUROLOGICAL: +peripheral polyneuropathy HEMATOLOGICAL: denies easy bruising SKIN: right dorsal foot surgical wound, posterior left calf wound, right upper arm rash PSYCHIATRIC: Unremarkable All other review of systems found to be negative. PHYSICAL EXAMINATION: VITAL SIGNS: Please see below. GENERAL: Pleasant and cooperative. No acute distress. HEENT: PERRL. Extraocular movements intact. Clear conjunctiva CARDIOVASCULAR: Irregular rate and rhythm. No murmurs, rubs, or gallops LUNGS: Clear to auscultation bilaterally. No wheezes. No rhonchi ABDOMEN: Soft, nontender, nondistended. Positive bowel sounds. Normal active b owel sounds NEUROLOGICAL: Alert and oriented times three. Cranial nerves II through XII grossly intact. Sensation diminished to light touch bilat LE in stocking pattern EXTREMITIES: 5-\5 strength bilateral upper extremities. 4/5 right hip flexion, knee extension, 3/5 ankle DF, 0/5 EHL 1/5 left hip flexion, 3/5 knee extension 0/5 ankle DF/EHL SKIN: hyperkeratotic calves L>R, posterior left calf with vertical wound with healthy granulation tissue, no exudate -right foot with pins in place, no induration noted around the surgical site -right upper arm erythema in circumscribed square pattern (improving) ASSESSMENT:64-year-old M with past medical history of DM and PVD who presents status new onset right sided weakness. PLAN: 1.Rehab- PT/OT advance gait and ADL training, strengthen/stretch/maintain ROM all 4limbs- working on bed mobility -RF TECHNICIAN for cognition eval 2. Neuro: patient with recent acute onset right sided hemiparesis, possibly due to TIA as MRI did not confirm ischemic infarct or posterior reversible encephalopathy syndrome- c/u secondary stroke management with statin, ASA, good BP and glycemic control -c/u Cymbalta which will help with motor recovery - peripheral polyneuropathy due to longstanding DM with gait impairment, optimize DM management 3. Cardiac: Afib cu Amiodarone and betablocker, Eliquis on hold due to intraabdominal hematoma -hx of CAD s/p stenting c/u ASA -chronic diastolic CHF grade 2, c/u daily weight, fluid restrict, monitor for fluid overload -HTN c/u lisinopril and amlodipine, medicine consulted to assist in overall management -HLD c/u statin 4. Resp: c/u duonebs, and Serevant, monitor for infection -CLAUDIA may use own cpap 5. Endo: DM with hyperglycemia and peripheral polyneuropathy. c/u Levemir, ISS 6. Pain: chronic low back pain with chronic opioid use, c/u fentanyl, oxycodone, gabapentin, cymbalta, baclofen -naloxone ordered prn 7. GI ppx: protonix 8/ Hypokalemia- 3.3 today will give one time dose potassium and f/u bmp tomorrow 8. DVT ppx; heparin 9. ID: c/u Nafcillin 2g IV q4h x 6 weeks stop date 02-12-20 per IDrecs appreciated -c/u triamcinolone for RUE contact dermatitis -f/u ECHO in 2-4 weeks for known vegetations -vitamin C and zinc added for wound healing 10. Ortho: s/p right foot fusion NWB- Dr. Romano following 11. Dispo: TBD Allergies Coded Allergies: TAPE (Verified Allergy, Mild, RASH/BLISTERS, 08/15/19) Vital Signs Vital Signs Date Time Temp Pulse Resp B/P (MAP) Pulse Ox O2 Delivery O2 Flow Rate FiO2 01/27/20 09:55 16 01/27/20 09:23 69 137/71 01/27/20 05:30 96.0 98 Nasal Cannula 2.0 Laboratory Data CBC/BMP Laboratory Tests 01/27/20 06:11 Labs 24H Laboratory Tests 2 01/26/20 11:42: Bedside Glucose (Misc Panel) 140H 01/26/20 16:41: Bedside Glucose (Misc Panel) 168H 01/26/20 19:43: Bedside Glucose (Misc Panel) 230H 01/27/20 05:22: Bedside Glucose (Misc Panel) 109 01/27/20 06:11: Immature Granulocyte % (Auto) 1.0, Neutrophils (%) (Auto) 54.1, Lymphocytes (%) (Auto) 26.7, Monocytes (%) (Auto) 11.5H, Eosinophils (%) (Auto) 5.5H, Basophils (%) (Auto) 1.2H, Neutrophils # (Auto) 3.6, Lymphocytes # (Auto) 1.8, Monocytes # (Auto) 0.8, Eosinophils # (Auto) 0.4, Basophils # (Auto) 0.1, Nucleated Red Blood Cells % (auto) 0.0, Anion Gap 3L, Glomerular Filtration Rate > 60.0, Calcium Level 8.6L Current Medications Current Medications Current Medications Medications (Trade) Dose Ordered Sig/Lexi Route PRN Reason Start Time Stop Time Status Last Admin Dose Admin Acetaminophen (Tylenol Tab) 650 mg Q4HP PRN PO fever/MILD PAIN (PS 1-4) 01/21/20 11:30 01/26/20 20:36 Albuterol/ Ipratropium (Duoneb (Ipr 0.5mg/Alb 2.5mg)) 3 ml RTID NEB 01/21/20 14:00 01/26/20 13:45 Amiodarone HCl (Pacerone, Cordarone) 200 mg BID PO 01/22/20 09:00 01/27/20 09:23 Amlodipine Besylate (Norvasc) 10 mg DAILY PO 01/22/20 09:00 01/27/20 09:23 Ascorbic Acid (Vitamin C) 500 mg DAILY PO 01/22/20 09:00 01/27/20 09:22 Aspirin (Ecotrin) 81 mg DAILY PO 01/22/20 09:00 01/27/20 09:23 Atorvastatin Calcium (Lipitor) 80 mg QHS PO 01/22/20 21:00 01/26/20 20:35 Baclofen (Lioresal) 5 mg TID PO 01/21/20 16:00 01/27/20 09:23 Bisacodyl (Dulcolax Suppository) [address] CONSTIPATION 01/21/20 11:30 Bisacodyl (Dulcolax Tab) 5 mg DAILYPRN PRN PO CONSTIPATION 01/21/20 11:30 Dextrose (Dextrose 50%) 25 ml ASDIRECTED PRN IV SEE LABEL COMMENTS 01/21/20 11:30 Docusate Sodium (Colace) 100 mg BID PO 01/21/20 21:00 01/23/20 16:15 DC Duloxetine HCl (Cymbalta) 60 mg DAILY PO 01/22/20 09:00 01/27/20 09:23 Emollient Cream (Vanicream) 1 dose BID TOP 01/21/20 21:00 01/27/20 09:33 Fentanyl (Duragesic) 100 mcg Q72H TOP 01/24/20 09:00 01/27/20 09:25 Gabapentin (Neurontin) 600 mg TID PO 01/21/20 16:00 01/27/20 09:22 Glucagon (Glucagon) 1 mg ASDIRECTED PRN SC SEE LABEL COMMENTS 01/21/20 11:30 Glucose (Glucose) 16 GM ASDIRECTED PRN PO SEE LABEL COMMENTS 01/21/20 11:30 Heparin Sodium (Heparin (Flush)) 200 units ASDIRECTED PRN IV SEE LABEL COMMENTS 01/21/20 17:30 01/25/20 20:42 Heparin Sodium (Heparin (Flush)) 200 units PICC IV 01/21/20 18:00 01/27/20 05:21 Heparin Sodium (Porcine) (Heparin) 5,000 units Q12H SC 01/21/20 21:00 01/27/20 09:22 Home Med (Med Rec Complete!) ASDIRECTED XX 01/21/20 15:00 01/21/20 14:51 DC Insulin Detemir (Levemir Insulin) 45 units BID SC 01/21/20 21:00 01/26/20 20:34 Insulin Human Lispro (HumaLOG INSULIN) SEE PROTOCOL TABLE AC SC 01/21/20 12:00 01/26/20 17:41 Insulin Human Lispro (HumaLOG INSULIN) SEE PROTOCOL TABLE QHS SC 01/21/20 21:00 Lactobacillus Acidophilus (Bacid) 1 ea TID PO 01/21/20 16:00 01/27/20 09:23 Latanoprost (Xalatan 0.005% Op Soln) 1 drop QHS OU 01/21/20 21:00 01/26/20 20:37 Lisinopril (Prinivil) 2.5 mg DAILY PO 01/22/20 09:00 01/27/20 09:23 Metoprolol Succinate (TopROL XL) 50 mg DAILY PO 01/22/20 09:00 01/27/20 09:23 Miscellaneous (Unresolved Clarification Entry) SEE LABEL COMMENTS DAILY XX 01/25/20 09:00 01/26/20 11:03 DC Multivitamins (Theragram-M) 1 tab DAILY PO 01/22/20 09:00 01/27/20 09:23 Nafcillin Sodium 2 gm/Dextrose 50 ml @ 50 mls/hr Q4H IV 01/21/20 17:00 02/25/20 16:59 01/27/20 09:26 Naloxone HCl (Narcan) 0.1 mg Q5MP PRN IV RESP. RATE < 10 01/21/20 11:30 Nicotine (Nicoderm Cq 14mg) 1 patch DAILY TD 01/21/20 09:00 Non-Formulary Medication ( See Comment Field Below ) SEE COMMENT SECTION ASDIRECTED XX 01/24/20 09:00 01/24/20 08:25 Nystatin (Mycostatin Powder, Nystop) apply to groin BID TOP 01/23/20 09:00 01/27/20 09:34 Oxycodone HCl (Roxicodone, Oxyir) 10 mg Q4HP PRN PO SEVERE PAIN (PS 8-10) 01/21/20 11:30 01/27/20 09:24 Pantoprazole Sodium (Protonix) 40 mg DAILY PO 01/22/20 09:00 01/27/20 09:23 Saliva Substitute (Mouthkote) 1 sprays TID MT 01/21/20 16:00 01/27/20 09:34 Salmeterol Xinafoate (Serevent Diskus) 1 puff BID INH 01/21/20 21:00 01/27/20 07:33 Senna (Senokot) 1 tab QHS PO 01/21/20 21:00 01/26/20 20:35 Sodium Chloride (Saline Lock Flush) 10 ml ASDIRECTED PRN IV SEE LABEL COMMENTS 01/21/20 17:30 01/25/20 20:42 Sodium Chloride (Saline Lock Flush) 10 ml PICC IV 01/21/20 18:00 01/27/20 05:21 Triamcinolone Acetonide (Kenalog 0.1% Ointment) rash on arms from tape DAILY EXT 01/21/20 09:00 01/27/20 09:34 Zinc Sulfate (Zinc Sulfate) 220 mg DAILY PO 01/22/20 09:00 01/27/20 09:22 ANNETTE PLAZA MD Jan 27, 2020 10:30
[2020-01-27] MEDS ORDERED: POTASSIUM CHLORIDE 10 MEQ SR TABLET PO ONE (13:00)
[2020-01-27 14:00] VITALS: BP 147/75
[2020-01-27 20:09] VITALS: BP 134/72
[2020-01-27] MEDS: ATORVASTATIN 20 MG TAB PO SCH (20:34)
[2020-01-27] MEDS: SENNA 8.6 MG TAB (SENOKOT) PO SCH (20:36)
[2020-01-27] MEDS: LATANOPROST 0.005% OPHTH SOLN 2.5 ML OU SCH (20:38)
[2020-01-28] MEDS: NAFCILLIN SOD 2 GM in D5W MINI-BAG PLUS 50 ML IV SCH ×6 (00:49→21:51)
[2020-01-28] MEDS: SODIUM CHLORIDE 0.9% INJ 10 ML SYR IV SCH ×2 (05:24→18:15)
[2020-01-28 06:00] VITALS: BP 138/77
[2020-01-28] MEDS: SALMETEROL DISKUS 50MCG INHALER (SEREVENT) INH SCH ×2 (06:07→17:50)
[2020-01-28 07:54] LABS: BLOOD UREA NITROGEN 15 MG/DL (7-18); CALCIUM LEVEL 8.6 MG/DL (8.8-10.2); CARBON DIOXIDE LEVEL 35 MEQ/L (21-32); CHLORIDE LEVEL 101 MEQ/L (98-107); CREATININE FOR GFR 0.95 MG/DL (0.70-1.30); GLOMERULAR FILTRATION RATE > 60.0 (>49); GLUCOSE, FASTING 137 MG/DL (70-100); POTASSIUM SERUM 3.7 MEQ/L (3.5-5.1); SODIUM LEVEL 139 MEQ/L (136-145)
[2020-01-28] MEDS: IPRATROPIUM 0.5MG/ALBUTEROL 2.5MG INH SOL UD 3ML (DUONEB) NEB SCH ×3 (08:00→17:51)
[2020-01-28] MEDS: LEVEMIR (INSULIN DETEMIR) 1 UNITS/0.01ML SC SCH ×2 (08:31→22:25)
[2020-01-28] MEDS: HumaLOG INSULIN (NovoLOG) PER UNIT SC SCH ×4 (08:32→22:28)
[2020-01-28] MEDS: HEPARIN SOD (PORCINE) 5000UNITS/ML 1ML VIAL/SYRINGE SC SCH ×2 (08:33→22:28)
[2020-01-28] MEDS: ASPIRIN 81 MG ENTERIC TAB PO SCH (08:39)
[2020-01-28] MEDS: BACLOFEN 5MG PER 1/2 TABLET PO SCH ×3 (08:39→22:26)
[2020-01-28] MEDS: METOPROLOL SUCC (TopROL XL) 50MG **XL** TAB PO SCH (08:39)
[2020-01-28] MEDS: ZINC SULFATE 220 MG CAP PO SCH (08:39)
[2020-01-28] MEDS: GABAPENTIN 300 MG CAP PO SCH ×3 (08:40→22:27)
[2020-01-28] MEDS: MULTIVITAMINS/MINERALS THERAP 1 TAB PO SCH (08:40)
[2020-01-28] MEDS: LACTOBACILLUS ACIDOPHILUS CAP (BACID) PO SCH ×3 (08:40→22:27)
[2020-01-28] MEDS: oxyCODONE 5MG TAB PO PRN ×3 (08:40→22:31)
[2020-01-28] MEDS: ASCORBIC ACID 500 MG TAB PO SCH (08:40)
[2020-01-28] MEDS: PANTOPRAZOLE 40MG TAB (PROTONIX) PO SCH (08:41)
[2020-01-28] MEDS: amLODIPine 10 MG TAB PO SCH (08:41)
[2020-01-28] MEDS: LISINOPRIL *2.5 MG* TAB PO SCH (08:41)
[2020-01-28] MEDS: AMIODARONE 200 MG TAB (PACERONE) PO SCH ×2 (08:41→22:27)
[2020-01-28] MEDS: DULoxetine 30 MG CAP (CYMBALTA) PO SCH (08:41)
[2020-01-28] MEDS: NICOTINE 14 MG/24 HR TRANSDERMAL TD SCH (08:42)
[2020-01-28] MEDS: TRIAMCINOLONE ACET 0.1% OINTMENT 15 GM EXT SCH (08:42)
[2020-01-28] MEDS: NYSTATIN 100,000 UNITS/GM TOPICAL PWD 15 GM TOP SCH ×2 (08:43→22:29)
[2020-01-28] MEDS: VANICREAM MOISTURIZING SKIN CREAM 113GM TUBE TOP SCH ×2 (08:44→22:30)
[2020-01-28] MEDS: REMEDY PHYTOPLEX Z-GUARD PASTE 113GM TUBE (FROM STOREROOM PRODUCT) TOP SCH ×3 (08:44→22:29)
[2020-01-28] MEDS: SALIVA SUBSTITUTE(MOUTHKOTE) BTL MT SCH ×3 (09:00→22:27)
--- NOTE | 2020-01-28 10:41 | IPN ---
DATE: 01/27/2020 Aurelio seems to be doing well. He is in good spirits except the fact that he is hungry. He is not allowed to have call or sausage with breakfast and he could not do therapy without having increased food. The patient did complain to his primary care. He is afebrile. No nausea, vomiting or diarrhea. No pain. He is on IV nafcillin 2 grams every 4 hours. LABORATORY DATA: White count 6.7, hemoglobin 10.1, hematocrit 34.4, platelets 185, 54% neutrophils, 26% lymphocytes, 11% monocytes. Sodium 142, potassium 3.3, chloride 103, BUN 12, creatinine 0.76, glucose 78, calcium 8.6, CRP done on 01/23 was 2.88. Temperature is 97.2, pulse 78, respirations 18, blood pressure 147/75, O2 saturation 94% on room air. Heart: Normal S1-S2 distant. No murmurs appreciated, irregular. Lungs are clear. No wheezes or rhonchi. Diminished at the bases. Abdomen: Soft, nontender. No hepatosplenomegaly. Extremities: No edema. Right foot has an external fixator. Left hip limited range of motion. Skin rash on right biceps has resolved, multiple scaly lesions on his right foot. IMPRESSION: 1. 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 The patient to finish 6 weeks of IV nafcillin on February 11. 2. Acute osteomyelitis of the right foot status post removal of tarsal joints with external fixator. Also culture positive for Methicillin-Susceptible Staphylococcus aureus (MSSA). The patient will finish IV nafcillin on February 11 and then will be switched to Keflex 500 mg four times a day 3. Contact dermatitis from tape, doing much better with steroid cream. PLAN: Continue same medication. Please monitor complete blood count (CBC), basic, CRP, ESR once a week.
--- NOTE | 2020-01-28 18:11 | IPNPDOC ---
PM&R Progress Note DATE OF SERVICE: Jan 28, 2020 Gear Roller Progress Note Subjective: Patient reporting he feels his upper body is getting stronger with the use of the trapeze and is happy he was able to put more weight through his left leg on the tilt table in therapy. REVIEW OF SYSTEMS: The following is a completed review of systems and has been reviewed. Review of systems otherwise unremarkable. PAIN: Patient self reports no pain EYES: No recent vision changes EARS, NOSE, & THROAT:No throat pain, or dysphagia, or rhinorrhea CARDIOVASCULAR: Denies chest pain or palpitations PULMONARY: Denies shortness of breath GASTROINTESTINAL: Denies constipation/diarrhea GENITOURINARY: denies dysuria MUSCULOSKELETAL:generalized weakness NEUROLOGICAL: +peripheral polyneuropathy HEMATOLOGICAL: denies easy bruising SKIN: right dorsal foot surgical wound, posterior left calf wound, right upper arm rash PSYCHIATRIC: Unremarkable All other review of systems found to be negative. PHYSICAL EXAMINATION: VITAL SIGNS: Please see below. GENERAL: Pleasant and cooperative. No acute distress. HEENT: PERRL. Extraocular movements intact. Clear conjunctiva CARDIOVASCULAR: Irregular rate and rhythm. No murmurs, rubs, or gallops LUNGS: Clear to auscultation bilaterally. No wheezes. No rhonchi ABDOMEN: Soft, nontender, nondistended. Positive bowel sounds. Normal active bowel sounds NEUROLOGICAL: Alert and oriented times three. Cranial nerves II through XII grossly intact. Sensation diminished to light touch bilat LE in stocking pattern EXTREMITIES: 5-\5 strength bilateral upper extremities. 4/5 right hip flexion, knee extension, 3/5 ankle DF, 0/5 EHL 1/5 left hip flexion, 3/5 knee extension 0/5 ankle DF/EHL SKIN: hyperkeratotic calves L>R, posterior left calf with vertical wound with healthy granulation tissue, no exudate -right foot with pins in place, no induration noted around the surgical site -right upper arm erythema in circumscribed square pattern (improving) ASSESSMENT:64-year-old M with past medical history of DM and PVD who presents status new onset right sided weakness. PLAN: 1.Rehab- PT/OT advance gait and ADL training, strengthen/stretch/maintain ROM all 4limbs- working on bed mobility and putting weight through left leg -COMPLIANCE MONITOR for cognition eval 2. Neuro: patient with recent acute onset right sided hemiparesis, possibly due to TIA as MRI did not confirm ischemic infarct or posterior reversible encephalopathy syndrome- c/u secondary stroke management with statin, ASA, good BP and glycemic control -c/u Cymbalta which will help with motor recovery - peripheral polyneuropathy due to longstanding DM with gait impairment, optimize DM management 3. Cardiac: Afib cu Amiodarone and betablocker, Eliquis on hold due to intraabdominal hematoma -hx of CAD s/p stenting c/u ASA -chronic diastolic CHF grade 2, c/u daily weight, fluid restrict, monitor for fluid overload -HTN c/u lisinopril and amlodipine, medicine consulted to assist in overall management -HLD c/u statin 4. Resp: c/u duonebs, and Serevant, monitor for infection -CLAUDIA may use own cpap 5. Endo: DM with hyperglycemia and peripheral polyneuropathy. c/u Levemir, ISS 6. Pain: chronic low back pain with chronic opioid use, c/u fentanyl, oxycodone, gabapentin, cymbalta, baclofen -naloxone ordered prn 7. GI ppx: protonix 8/ Hypokalemia- resolved 8. DVT ppx; heparin 9. ID: c/u Nafcillin 2g IV q4h x 6 weeks stop date 02-12-20 per ID [id number] appre ciated -c/u triamcinolone for RUE contact dermatitis -f/u ECHO in 2-4 weeks for known vegetations -vitamin C and zinc added for wound healing 10. Ortho: s/p right foot fusion NWB- Dr. Romano following 11. Dispo: 02-06-20 to home, progressing towards goals, will need assistance with some ADls and mobility at home Allergies Coded Allergies: TAPE (Verified Allergy, Mild, RASH/BLISTERS, 08/15/19) Vital Signs Vital Signs Date Time Temp Pulse Resp B/P (MAP) Pulse Ox O2 Delivery O2 Flow Rate FiO2 01/28/20 14:22 20 Room Air 01/28/20 08:41 71 138/77 01/28/20 06:00 97.3 97 2.0 Laboratory Data CBC/BMP Laboratory Tests 01/28/20 07:09 Labs 24H Laboratory Tests 2 01/27/20 20:32: Bedside Glucose (Misc Panel) 199H 01/28/20 06:04: Bedside Glucose (Misc Panel) 155H 01/28/20 07:09: Anion Gap 3L, Glomerular Filtration Rate > 60.0, Calcium Level 8.6L 01/28/20 11:30: Bedside Glucose (Misc Panel) 86 01/28/20 16:36: Bedside Glucose (Misc Panel) 141H Current Medications Current Medications Current Medications Medications (Trade) Dose Ordered Sig/Lexi Route PRN Reason Start Time Stop Time Status Last Admin Dose Admin Acetaminophen (Tylenol Tab) 650 mg Q4HP PRN PO fever/MILD PAIN (PS 1-4) 01/21/20 11:30 01/26/20 20:36 Albuterol/ Ipratropium (Duoneb (Ipr 0.5mg/Alb 2.5mg)) 3 ml RTID NEB 01/21/20 14:00 01/28/20 14:30 Amiodarone HCl (Pacerone, Cordarone) 200 mg BID PO 01/22/20 09:00 01/28/20 08:41 Amlodipine Besylate (Norvasc) 10 mg DAILY PO 01/22/20 09:00 01/28/20 08:41 Ascorbic Acid (Vitamin C) 500 mg DAILY PO 01/22/20 09:00 01/28/20 08:40 Aspirin (Ecotrin) 81 mg DAILY PO 01/22/20 09:00 01/28/20 08:39 Atorvastatin Calcium (Lipitor) 80 mg QHS PO 01/22/20 21:00 01/27/20 20:34 Baclofen (Lioresal) 5 mg TID PO 01/21/20 16:00 01/28/20 08:39 Bisacodyl (Dulcolax Suppository) 10 mg DAILYPRN PRN MS CONSTIPATION 01/21/20 11:30 Bisacodyl (Dulcolax Tab) 5 mg DAILYPRN PRN PO CONSTIPATION 01/21/20 11:30 Dextrose (Dextrose 50%) 25 ml ASDIRECTED PRN IV SEE LABEL COMMENTS 01/21/20 11:30 Docusate Sodium (Colace) 100 mg BID PO 01/21/20 21:00 01/23/20 16:15 DC Duloxetine HCl (Cymbalta) 60 mg DAILY PO 01/22/20 09:00 01/28/20 08:41 Emollient Cream (Vanicream) 1 dose BID TOP 01/21/20 21:00 01/28/20 08:44 Fentanyl (Duragesic) 100 mcg Q72H TOP 01/24/20 09:00 01/27/20 09:25 Gabapentin (Neurontin) 600 mg TID PO 01/21/20 16:00 01/28/20 08:40 Glucagon (Glucagon) 1 mg ASDIRECTED PRN SC SEE LABEL COMMENTS 01/21/20 11:30 Glucose (Glucose) 16 GM ASDIRECTED PRN PO SEE LABEL COMMENTS 01/21/20 11:30 Heparin Sodium (Heparin (Flush)) 200 units ASDIRECTED PRN IV SEE LABEL COMMENTS 01/21/20 17:30 01/25/20 20:42 Heparin Sodium (Heparin (Flush)) 200 units PICC IV 01/21/20 18:00 01/28/20 05:21 Heparin Sodium (Porcine) (Heparin) 5,000 units Q12H SC 01/21/20 21:00 01/28/20 08:33 Home Med (Med Rec Complete!) ASDIRECTED XX 01/21/20 15:00 01/21/20 14:51 DC Insulin Detemir (Levemir Insulin) 45 units BID SC 01/21/20 21:00 01/28/20 08:31 Insulin Human Lispro (HumaLOG INSULIN) SEE PROTOCOL TABLE AC SC 01/21/20 12:00 01/28/20 08:32 Insulin Human Lispro (HumaLOG INSULIN) SEE PROTOCOL TABLE QHS SC 01/21/20 21:00 Lactobacillus Acidophilus (Bacid) 1 ea TID PO 01/21/20 16:00 01/28/20 08:40 Latanoprost (Xalatan 0.005% Op Soln) 1 drop QHS OU 01/21/20 21:00 01/27/20 20:38 Lisinopril (Prinivil) 2.5 mg DAILY PO 01/22/20 09:00 01/28/20 08:41 Metoprolol Succinate (TopROL XL) 50 mg DAILY PO 01/22/20 09:00 01/28/20 08:39 Miscellaneous (Unresolved Clarification Entry) SEE LABEL COMMENTS DAILY XX 01/25/20 09:00 01/26/20 11:03 DC Multivitamins (Theragram-M) 1 tab DAILY PO 01/22/20 09:00 01/28/20 08:40 Nafcillin Sodium 2 gm/Dextrose 50 ml @ 50 mls/hr Q4H IV 01/21/20 17:00 02/12/20 21:00 01/28/20 14:18 Naloxone HCl (Narcan) 0.1 mg Q5MP PRN IV RESP. RATE < 10 01/21/20 11:30 Nicotine (Nicoderm Cq 14mg) 1 patch DAILY TD 01/21/20 09:00 Non-Formulary Medication ( See Comment Field Below ) SEE COMMENT SECTION ASDIRECTED XX 01/24/20 09:00 01/24/20 08:25 Nystatin (Mycostatin Powder, Nystop) apply to groin BID TOP 01/23/20 09:00 01/28/20 08:43 Oxycodone HCl (Roxicodone, Oxyir) 10 mg Q4HP PRN PO SEVERE PAIN (PS 8-10) 01/21/20 11:30 01/28/20 14:17 Pantoprazole Sodium (Protonix) 40 mg DAILY PO 01/22/20 09:00 01/28/20 08:41 Saliva Substitute (Mouthkote) 1 sprays TID MT 01/21/20 16:00 01/27/20 17:03 Salmeterol Xinafoate (Serevent Diskus) 1 puff BID INH 01/21/20 21:00 01/28/20 17:50 Senna (Senokot) 1 tab QHS PO 01/21/20 21:00 01/26/20 20:35 Sodium Chloride (Saline Lock Flush) 10 ml ASDIRECTED PRN IV SEE LABEL COMMENTS 01/21/20 17:30 01/25/20 20:42 Sodium Chloride (Saline Lock Flush) 10 ml PICC IV 01/21/20 18:00 01/28/20 05:24 Triamcinolone Acetonide (Kenalog 0.1% Ointment) rash on arms from tape DAILY EXT 01/21/20 09:00 01/28/20 08:42 Zinc Sulfate (Zinc Sulfate) 220 mg DAILY PO 01/22/20 09:00 01/28/20 08:39 ANNETTE PLAZA MD Jan 28, 2020 18:11
[2020-01-28 22:00] VITALS: BP 135/64
[2020-01-28] MEDS: SENNA 8.6 MG TAB (SENOKOT) PO SCH (22:26)
[2020-01-28] MEDS: ATORVASTATIN 20 MG TAB PO SCH (22:26)
[2020-01-28] MEDS: LATANOPROST 0.005% OPHTH SOLN 2.5 ML OU SCH (22:29)
[2020-01-28] MEDS: SODIUM CHLORIDE 0.9% INJ 10 ML SYR IV PRN (22:51)
[2020-01-29] MEDS: NAFCILLIN SOD 2 GM in D5W MINI-BAG PLUS 50 ML IV SCH ×6 (02:00→20:44)
[2020-01-29] MEDS: SODIUM CHLORIDE 0.9% INJ 10 ML SYR IV PRN ×2 (03:14→20:46)
[2020-01-29] MEDS: SALMETEROL DISKUS 50MCG INHALER (SEREVENT) INH SCH ×2 (05:58→19:50)
[2020-01-29] MEDS: IPRATROPIUM 0.5MG/ALBUTEROL 2.5MG INH SOL UD 3ML (DUONEB) NEB SCH ×2 (05:59→19:50)
[2020-01-29] MEDS: SODIUM CHLORIDE 0.9% INJ 10 ML SYR IV SCH ×2 (06:01→17:14)
[2020-01-29 06:08] VITALS: BP 123/70
[2020-01-29] MEDS: oxyCODONE 5MG TAB PO PRN ×2 (06:14→11:59)
[2020-01-29 06:41] LABS: BASO # 0.1 10^3/uL (0.0-0.2); BASO % 1.2 % (0.0-1.0); EOS # 0.3 10^3/uL (0.0-0.5); EOS % 4.3 % (0.0-3.0); HEMATOCRIT 33.9 % (42.0-52.0); HEMOGLOBIN 9.9 g/dl (13.5-17.5); LYMPH % 26.7 % (24.0-44.0); MEAN CORPUSCULAR HEMOGLOBIN 24.9 pg (27.0-33.0); MEAN CORPUSCULAR HGB CONC 29.2 g/dl (32.0-36.5); MEAN CORPUSCULAR VOLUME 85.2 fl (80.0-96.0); MONO # 0.7 10^3/uL (0.0-0.8); MONO % 9.9 % (0.0-5.0); NEUTROPHILS # 4.2 10^3/uL (1.5-8.5); NEUTROPHILS % 57.1 % (36.0-66.0); PLATELET COUNT, AUTOMATED 169 10^3/uL (150-450); RED BLOOD COUNT 3.98 10^6/uL (4.30-6.10); WHITE BLOOD COUNT 7.4 10^3/uL (4.0-10.0)
[2020-01-29 07:07] LABS: BLOOD UREA NITROGEN 16 MG/DL (7-18); C REACTIVE PROTEIN QUANTITATIV 5.38 MG/DL (0.00-0.30); CALCIUM LEVEL 8.5 MG/DL (8.8-10.2); CARBON DIOXIDE LEVEL 31 MEQ/L (21-32); CHLORIDE LEVEL 102 MEQ/L (98-107); CREATININE FOR GFR 0.86 MG/DL (0.70-1.30); GLOMERULAR FILTRATION RATE > 60.0 (>49); GLUCOSE, FASTING 157 MG/DL (70-100); POTASSIUM SERUM 4.1 MEQ/L (3.5-5.1); SODIUM LEVEL 138 MEQ/L (136-145)
[2020-01-29 08:01] LABS: ERYTHROCYTE SEDIMENTATION RATE 60 mm/hr (0-20)
[2020-01-29] MEDS: LEVEMIR (INSULIN DETEMIR) 1 UNITS/0.01ML SC SCH ×2 (08:21→20:44)
[2020-01-29] MEDS: HumaLOG INSULIN (NovoLOG) PER UNIT SC SCH ×4 (08:21→20:44)
[2020-01-29] MEDS: LACTOBACILLUS ACIDOPHILUS CAP (BACID) PO SCH ×3 (08:21→20:42)
[2020-01-29] MEDS: PANTOPRAZOLE 40MG TAB (PROTONIX) PO SCH (08:21)
[2020-01-29] MEDS: METOPROLOL SUCC (TopROL XL) 50MG **XL** TAB PO SCH (08:22)
[2020-01-29] MEDS: MULTIVITAMINS/MINERALS THERAP 1 TAB PO SCH (08:22)
[2020-01-29] MEDS: AMIODARONE 200 MG TAB (PACERONE) PO SCH ×2 (08:22→20:43)
[2020-01-29] MEDS: LISINOPRIL *2.5 MG* TAB PO SCH (08:22)
[2020-01-29] MEDS: ASPIRIN 81 MG ENTERIC TAB PO SCH (08:22)
[2020-01-29] MEDS: DULoxetine 30 MG CAP (CYMBALTA) PO SCH (08:22)
[2020-01-29] MEDS: GABAPENTIN 300 MG CAP PO SCH ×3 (08:22→20:43)
[2020-01-29] MEDS: amLODIPine 10 MG TAB PO SCH (08:22)
[2020-01-29] MEDS: BACLOFEN 5MG PER 1/2 TABLET PO SCH ×3 (08:22→20:43)
[2020-01-29] MEDS: ZINC SULFATE 220 MG CAP PO SCH (08:22)
[2020-01-29] MEDS: SALIVA SUBSTITUTE(MOUTHKOTE) BTL MT SCH ×3 (08:23→20:45)
[2020-01-29] MEDS: ASCORBIC ACID 500 MG TAB PO SCH (08:23)
[2020-01-29] MEDS: HEPARIN SOD (PORCINE) 5000UNITS/ML 1ML VIAL/SYRINGE SC SCH ×2 (08:23→20:42)
[2020-01-29] MEDS: VANICREAM MOISTURIZING SKIN CREAM 113GM TUBE TOP SCH ×2 (08:24→20:46)
[2020-01-29] MEDS: REMEDY PHYTOPLEX Z-GUARD PASTE 113GM TUBE (FROM STOREROOM PRODUCT) TOP SCH ×3 (08:24→20:45)
[2020-01-29] MEDS: NICOTINE 14 MG/24 HR TRANSDERMAL TD SCH (08:24)
[2020-01-29] MEDS: NYSTATIN 100,000 UNITS/GM TOPICAL PWD 15 GM TOP SCH ×2 (08:24→20:43)
[2020-01-29] MEDS: TRIAMCINOLONE ACET 0.1% OINTMENT 15 GM EXT SCH (08:25)
--- NOTE | 2020-01-29 09:05 | IPN ---
DATE: 01/28/2020 Aurelio seems to be doing well except for some irritation at his peripherally inserted central catheter (PICC) line site on the left arm. The nurse called me to evaluate his PICC line because she had concern of infection. The area underneath the Tegaderm is excoriated, erythematous oozing with yellowish drainage. The PICC line is intact. There is no erythema right around the site of the PICC line. There is no tenderness. No swelling of the arm. LABS: White count 6.7, hemoglobin 10.1, hematocrit 34.4, platelets 185. Sodium 139, potassium 3.7, chloride 101, bicarb 35, BUN 15, creatinine 0.95, glucose 137, calcium 8.6. MEDICATIONS: Nafcillin 2 grams IV every 4 hours Left arm has contacted the rectus along the Tegaderm with erythema and oozing, nontender. IMPRESSION: 1. Contact dermatitis from Tegaderm at left biceps. We will change dressing to gauze, 4x4 and paper tape even if it needs to be changed every day, to monitor. Apply triamcinolone for contact dermatitis as the patient in the risk of excoriation infection. 2. Acute osteomyelitis of right foot with aortic valve endocarditis on IV nafcillin for a total of 6 weeks to end on February 12, 2020. PLAN Avoid tape, especially Tegaderm. Use triamcinolone to left arm change dressing daily on PICC line site. Prefer to use 4x4 gauze. [facility]
--- NOTE | 2020-01-29 11:19 | IPNPDOC ---
PM&R Progress Note DATE OF SERVICE: Jan 29, 2020 Systems Librarian Progress Note Subjective: Patient concerned that his PICC line site is irritated and would like to see if there is a different type of adhesive tape. REVIEW OF SYSTEMS: The following is a completed review of systems and has been reviewed. Review of systems otherwise unremarkable. PAIN: Patient self reports no pain EYES: No recent vision changes EARS, NOSE, & THROAT:No throat pain, or dysphagia, or rhinorrhea CARDIOVASCULAR: Denies chest pain or palpitations PULMONARY: Denies shortness of breath GASTROINTESTINAL: Denies constipation/diarrhea GENITOURINARY: denies dysuria MUSCULOSKELETAL:generalized weakness NEUROLOGICAL: +peripheral polyneuropathy HEMATOLOGICAL: denies easy bruising SKIN: right dorsal foot surgical wound, posterior left calf wound, right upper arm rash PSYCHIATRIC: Unremarkable All other review of systems found to be negative. PHYSICAL EXAMINATION: VITAL SIGNS: Please see below. GENERAL: Pleasant and cooperative. No acute distress. HEENT: PERRL. Extraocular movements intact. Clear conjunctiva CARDIOVASCULAR: Irregular rate and rhythm. No murmurs, rubs, or gallops LUNGS: Clear to auscultation bilaterally. No wheezes. No rhonchi ABDOMEN: Soft, nontender, nondistended. Positive bowel sounds. Normal active bowel sounds NEUROLOGICAL: Alert and oriented times three. Cranial nerves II through XII grossly intact. Sensation diminished to light touch bilat LE in stocking pattern EXTREMITIES: 5-\5 strength bilateral upper extremities. 4/5 right hip flexion, knee extension, 3/5 ankle DF, 0/5 EHL 1/5 left hip flexion, 3/5 knee extension 0/5 ankle DF/EHL SKIN: hyperkeratotic calves L>R, posterior left calf with vertical wound with healthy granulation tissue, no exudate -right foot with pins in place, no induration noted around the surgical site -right upper arm erythema in circumscribed square pattern (improving) -LUE picc line site with mild erythema ASSESSMENT:64-year-old M with past medical history of DM and PVD who presents st atus new onset right sided weakness. PLAN: 1.Rehab- PT/OT advance gait and ADL training, strengthen/stretch/maintain ROM all 4limbs- working on bed mobility and putting weight through left leg -SKIN PILER for cognition eval 2. Neuro: patient with recent acute onset right sided hemiparesis, possibly due to TIA as MRI did not confirm ischemic infarct or posterior reversible encephalopathy syndrome- c/u secondary stroke management with statin, ASA, good BP and glycemic control -c/u Cymbalta which will help with motor recovery - peripheral polyneuropathy due to longstanding DM with gait impairment, opti thaddeus DM management 3. Cardiac: Afib cu Amiodarone and betablocker, Eliquis on hold due to intraabdominal hematoma -hx of CAD s/p stenting c/u ASA -chronic diastolic CHF grade 2, c/u daily weight, fluid restrict, monitor for fluid overload -HTN c/u lisinopril and amlodipine, medicine consulted to assist in overall management -HLD c/u statin 4. Resp: c/u duonebs, and Serevent, monitor for infection -CLAUDIA may use own cpap 5. Endo: DM with hyperglycemia and peripheral polyneuropathy- c/u Levemir, ISS 6. Pain: chronic low back pain with chronic opioid use, c/u fentanyl, oxycodone, gabapentin, Cymbalta, baclofen -naloxone ordered prn 7. GI ppx: protonix 8/ Hypokalemia- resolved 8. DVT ppx; heparin 9. ID: c/u Nafcillin 2g IV q4h x 6 weeks stop date 02-12-20 per ID [id number] appreciated -c/u triamcinolone for RUE contact dermatitis -f/u ECHO in 2-4 weeks for known vegetations endocarditis -vitamin C and zinc added for wound healing 10. Ortho: s/p right foot fusion NWB- Dr. Romano following 11. Dispo: 02-06-20 to home, progressing towards goals, will need assistance with some ADls and mobility at home Allergies Coded Allergies: TAPE (Verified Allergy, Mild, RASH/BLISTERS, 08/15/19) Vital Signs Vital Signs Date Time Temp Pulse Resp B/P (MAP) Pulse Ox O2 Delivery O2 Flow Rate FiO2 01/29/20 08:22 67 123/70 01/29/20 06:44 17 01/29/20 06:08 96.4 95 Nasal Cannula 2.0 Laboratory Data CBC/BMP Laboratory Tests 01/29/20 06:11 Labs 24H Laboratory Tests 2 01/28/20 11:30: Bedside Glucose (Misc Panel) 86 01/28/20 16:36: Bedside Glucose (Misc Panel) 141H 01/28/20 22:23: Bedside Glucose (Misc Panel) 86 01/29/20 06:05: Bedside Glucose (Misc Panel) 150H 01/29/20 06:11: Immature Granulocyte % (Auto) 0.8, Neutrophils (%) (Auto) 57.1, Lymphocytes (%) (Auto) 26.7, Monocytes (%) (Auto) 9.9H, Eosinophils (%) (Auto) 4.3H, Basophils (%) (Auto) 1.2H, Neutrophils # (Auto) 4.2, Lymphocytes # (Auto) 2.0, Monocytes # (Auto) 0.7, Eosinophils # (Auto) 0.3, Basophils # (Auto) 0.1, Nucleated Red Blood Cells % (auto) 0.0, Erythrocyte Sedimentation Rate 60H, Anion Gap 5L, Glomerular Filtration Rate > 60.0, Calcium Level 8.5L, C-Reactive Protein, Quantitative 5.38H Current Medications Current Medications Current Medications Medications (Trade) Dose Ordered Sig/Lexi Route PRN Reason Start Time Stop Time Status Last Admin Dose Admin Acetaminophen (Tylenol Tab) 650 mg Q4HP PRN PO fever/MILD PAIN (PS 1-4) 01/21/20 11:30 01/26/20 20:36 Albuterol/ Ipratropium (Duoneb (Ipr 0.5mg/Alb 2.5mg)) 3 ml RTID NEB 01/21/20 14:00 01/28/20 14:30 Amiodarone HCl (Pacerone, Cordarone) 200 mg BID PO 01/22/20 09:00 01/29/20 08:22 Amlodipine Besylate (Norvasc) 10 mg DAILY PO 01/22/20 09:00 01/29/20 08:22 Ascorbic Acid (Vitamin C) 500 mg DAILY PO 01/22/20 09:00 01/29/20 08:23 Aspirin (Ecotrin) 81 mg DAILY PO 01/22/20 09:00 01/29/20 08:22 Atorvastatin Calcium (Lipitor) 80 mg QHS PO 01/22/20 21:00 01/28/20 22:26 Baclofen (Lioresal) 5 mg TID PO 01/21/20 16:00 01/29/20 08:22 Bisacodyl (Dulcolax Suppository) 10 mg DAILYPRN PRN SD CONSTIPATION 01/21/20 11:30 Bisacodyl (Dulcolax Tab) 5 mg DAILYPRN PRN PO CONSTIPATION 01/21/20 11:30 Dextrose (Dextrose 50%) 25 ml ASDIRECTED PRN IV SEE LABEL COMMENTS 01/21/20 11:30 Docusate Sodium (Colace) 100 mg BID PO 01/21/20 21:00 01/23/20 16:15 DC Duloxetine HCl (Cymbalta) 60 mg DAILY PO 01/22/20 09:00 01/29/20 08:22 Emollient Cream (Vanicream) 1 dose BID TOP 01/21/20 21:00 01/29/20 08:24 Fentanyl (Duragesic) 100 mcg Q72H TOP 01/24/20 09:00 01/27/20 09:25 Gabapentin (Neurontin) 600 mg TID PO 01/21/20 16:00 01/29/20 08:22 Glucagon (Glucagon) 1 mg ASDIRECTED PRN SC SEE LABEL COMMENTS 01/21/20 11:30 Glucose (Glucose) 16 GM ASDIRECTED PRN PO SEE LABEL COMMENTS 01/21/20 11:30 Heparin Sodium (Heparin (Flush)) 200 units ASDIRECTED PRN IV SEE LABEL COMMENTS 01/21/20 17:30 01/29/20 03:15 Heparin Sodium (Heparin (Flush)) 200 units PICC IV 01/21/20 18:00 01/29/20 06:01 Heparin Sodium (Porcine) (Heparin) 5,000 units Q12H SC 01/21/20 21:00 01/29/20 08:23 Home Med (Med Rec Complete!) ASDIRECTED XX 01/21/20 15:00 01/21/20 14:51 DC Insulin Detemir (Levemir Insulin) 45 units BID SC 01/21/20 21:00 01/29/20 08:21 Insulin Human Lispro (HumaLOG INSULIN) SEE PROTOCOL TABLE AC SC 01/21/20 12:00 01/29/20 08:21 Insulin Human Lispro (HumaLOG INSULIN) SEE PROTOCOL TABLE QHS SC 01/21/20 21:00 Lactobacillus Acidophilus (Bacid) 1 ea TID PO 01/21/20 16:00 01/29/20 08:21 Latanoprost (Xalatan 0.005% Op Soln) 1 drop QHS OU 01/21/20 21:00 01/28/20 22:29 Lisinopril (Prinivil) 2.5 mg DAILY PO 01/22/20 09:00 01/29/20 08:22 Metoprolol Succinate (TopROL XL) 50 mg DAILY PO 01/22/20 09:00 01/29/20 08:22 Miscellaneous (Unresolved Clarification Entry) SEE LABEL COMMENTS DAILY XX 01/25/20 09:00 01/26/20 11:03 DC Multivitamins (Theragram-M) 1 tab DAILY PO 01/22/20 09:00 01/29/20 08:22 Nafcillin Sodium 2 gm/Dextrose 50 ml @ 50 mls/hr Q4H IV 01/21/20 17:00 02/12/20 21:00 01/29/20 08:21 Naloxone HCl (Narcan) 0.1 mg Q5MP PRN IV RESP. RATE < 10 01/21/20 11:30 Nicotine (Nicoderm Cq 14mg) 1 patch DAILY TD 01/21/20 09:00 Non-Formulary Medication ( See Comment Field Below ) SEE COMMENT SECTION ASDIRECTED XX 01/24/20 09:00 01/24/20 08:25 Nystatin (Mycostatin Powder, Nystop) apply to groin BID TOP 01/23/20 09:00 01/29/20 08:24 Oxycodone HCl (Roxicodone, Oxyir) 10 mg Q4HP PRN PO SEVERE PAIN (PS 8-10) 01/21/20 11:30 01/29/20 06:14 Pantoprazole Sodium (Protonix) 40 mg DAILY PO 01/22/20 09:00 01/29/20 08:21 Saliva Substitute (Mouthkote) 1 sprays TID MT 01/21/20 16:00 01/27/20 17:03 Salmeterol Xinafoate (Serevent Diskus) 1 puff BID INH 01/21/20 21:00 01/29/20 05:58 Senna (Senokot) 1 tab QHS PO 01/21/20 21:00 01/26/20 20:35 Sodium Chloride (Saline Lock Flush) 10 ml ASDIRECTED PRN IV SEE LABEL COMMENTS 01/21/20 17:30 01/29/20 03:14 Sodium Chloride (Saline Lock Flush) 10 ml PICC IV 01/21/20 18:00 01/29/20 06:01 Triamcinolone Acetonide (Kenalog 0.1% Ointment) rash on arms from tape DAILY EXT 01/21/20 09:00 01/29/20 08:25 Zinc Sulfate (Zinc Sulfate) 220 mg DAILY PO 01/22/20 09:00 01/29/20 08:22 ANNETTE PLAZA MD Jan 29, 2020 11:19
[2020-01-29 14:00] VITALS: BP 143/76
[2020-01-29] MEDS: ACETAMINOPHEN TAB 650MG DOSE (2X325MG) PO PRN ×2 (15:00→20:43)
--- NOTE | 2020-01-29 18:38 | IPNPDOC ---
Date Seen The patient was seen on 01/29/20. Progress Note SUBJECTIVE: Patient was seen during physical therapy today, a bit tired from session but reports feeling well. Denies any particular complaints. Afebrile overnight. WBC 7.4. OBJECTIVE PHYSICAL EXAMINATION: VITAL SIGNS: Please see below. General: No acute distress, Alert Eyes: Normal sclera, EOMI HENT: Atraumatic Cardiovascular: Normal rate Pulmonary: Clear to auscultation b/l, no wheezing GI: Soft, nontender Skin: Warm and dry. b/l LE dried and darkened below the knees. MSK: R. foot with multiple pin/hardware protruding from wrapping. Neuro: CN grossly intact. No focal deficits. Strengths equal b/l. Psych: oriented x 3 LABORATORY DATA, IMAGING STUDIES, MICROBIOLOGY: Please see below. DVT prophylaxis ordered?: HSQ ASSESSMENT AND PLAN: 1. TIA - Continue with PT and OT. Patient is R. leg predominant but now cannot fully weightbear due to R. foot surgery and hardware. - c/w ASA and statin. - No current neurological deficits. Recently transferred to [place] for hem iparesis and neglect and was transferred back after no acute findings were noted on imaging. 2. Acute osteomyelitis of R. foot. - s/p fusion with external fixator by podiatry. - On IV Nafcillin 2g q4 until 02/11. 3. Aortic valve endocarditis - + blood cultures for MSSA on 12/29 and 12/30. - On IV antibiotics already with Nafcillin. ID following. 4. DM with peripheral neuropathy - c/w levemir and ISS. - diabetic diet. 5. Afib - Previously on Eliquis but held due to retroperitoneal hematoma. - c/w amiodarone and metoprolol. 6. Chronic HFpEF grade 2 - Monitor I/O and weight. - fluid restriction. 7. CAD - s/p ASA. 8. HTN - BP controlled on lisinopril and metoprolol. 9. HLD - On atorvastatin. 10. Contact dermatitis - c/w triamcinolone cream and gauze with paper tape as needed. VS, I&O, 24H, Fishbone Vital Signs/I&O Vital Signs Date Time Temp Pulse Resp B/P (MAP) Pulse Ox O2 Delivery O2 Flow Rate FiO2 01/29/20 14:00 97.8 76 17 143/76 (98) 94 Room Air 01/29/20 06:08 2.0 I&O- Last 24 Hours up to 6 AM 01/29/20 06:00 Intake Total 1810 ml Output Total 2875 ml Balance -1065 ml Laboratory Data 24H LABS Laboratory Tests 2 01/28/20 22:23: Bedside Glucose (Misc Panel) 86 01/29/20 06:05: Bedside Glucose (Misc Panel) 150H 01/29/20 06:11: Immature Granulocyte % (Auto) 0.8, Neutrophils (%) (Auto) 57.1, Lymphocytes (%) (Auto) 26.7, Monocytes (%) (Auto) 9.9H, Eosinophils (%) (Auto) 4.3H, Basophils (%) (Auto) 1.2H, Neutrophils # (Auto) 4.2, Lymphocytes # (Auto) 2.0, Monocytes # (Auto) 0.7, Eosinophils # (Auto) 0.3, Basophils # (Auto) 0.1, Nucleated Red Blood Cells % (auto) 0.0, Erythrocyte Sedimentation Rate 60H, Anion Gap 5L, Glomerular Filtration Rate > 60.0, Calcium Level 8.5L, C-Reactive Protein, Quantitative 5.38H 01/29/20 11:39: Bedside Glucose (Misc Panel) 184H 01/29/20 16:42: Bedside Glucose (Misc Panel) 101 CBC/BMP Laboratory Tests 01/29/20 06:11 JULIO BORDEN MD Jan 29, 2020 18:38
[2020-01-29 20:17] VITALS: BP 163/86
[2020-01-29] MEDS: ATORVASTATIN 20 MG TAB PO SCH (20:42)
[2020-01-29] MEDS: SENNA 8.6 MG TAB (SENOKOT) PO SCH (20:43)
[2020-01-29] MEDS: LATANOPROST 0.005% OPHTH SOLN 2.5 ML OU SCH (20:44)
[2020-01-30] MEDS: NAFCILLIN SOD 2 GM in D5W MINI-BAG PLUS 50 ML IV SCH ×6 (00:20→21:51)
[2020-01-30] MEDS: SODIUM CHLORIDE 0.9% INJ 10 ML SYR IV SCH ×2 (05:37→17:06)
[2020-01-30 05:41] VITALS: BP 133/66
[2020-01-30] MEDS: SALMETEROL DISKUS 50MCG INHALER (SEREVENT) INH SCH ×2 (07:15→19:46)
[2020-01-30] MEDS: IPRATROPIUM 0.5MG/ALBUTEROL 2.5MG INH SOL UD 3ML (DUONEB) NEB SCH ×3 (07:16→19:46)
[2020-01-30] MEDS: HEPARIN SOD (PORCINE) 5000UNITS/ML 1ML VIAL/SYRINGE SC SCH ×2 (08:30→21:46)
[2020-01-30] MEDS: HumaLOG INSULIN (NovoLOG) PER UNIT SC SCH ×4 (08:31→21:00)
[2020-01-30] MEDS: LEVEMIR (INSULIN DETEMIR) 1 UNITS/0.01ML SC SCH ×2 (08:31→21:47)
[2020-01-30] MEDS: GABAPENTIN 300 MG CAP PO SCH ×3 (08:32→21:49)
[2020-01-30] MEDS: BACLOFEN 5MG PER 1/2 TABLET PO SCH ×3 (08:32→21:48)
[2020-01-30] MEDS: LACTOBACILLUS ACIDOPHILUS CAP (BACID) PO SCH ×3 (08:32→21:48)
[2020-01-30] MEDS: DULoxetine 30 MG CAP (CYMBALTA) PO SCH (08:32)
[2020-01-30] MEDS: PANTOPRAZOLE 40MG TAB (PROTONIX) PO SCH (08:32)
[2020-01-30] MEDS: ASPIRIN 81 MG ENTERIC TAB PO SCH (08:32)
[2020-01-30] MEDS: ASCORBIC ACID 500 MG TAB PO SCH (08:32)
[2020-01-30] MEDS: ZINC SULFATE 220 MG CAP PO SCH (08:33)
[2020-01-30] MEDS: LISINOPRIL *2.5 MG* TAB PO SCH (08:35)
[2020-01-30] MEDS: AMIODARONE 200 MG TAB (PACERONE) PO SCH ×2 (08:36→21:49)
[2020-01-30] MEDS: amLODIPine 10 MG TAB PO SCH (08:36)
[2020-01-30] MEDS: METOPROLOL SUCC (TopROL XL) 50MG **XL** TAB PO SCH (08:36)
[2020-01-30] MEDS: MULTIVITAMINS/MINERALS THERAP 1 TAB PO SCH (08:37)
[2020-01-30] MEDS: SALIVA SUBSTITUTE(MOUTHKOTE) BTL MT SCH ×3 (08:38→20:16)
[2020-01-30] MEDS: NYSTATIN 100,000 UNITS/GM TOPICAL PWD 15 GM TOP SCH ×2 (08:40→20:15)
[2020-01-30] MEDS: fentaNYL 100 MCG/HR PATCH TOP SCH (08:40)
[2020-01-30] MEDS: VANICREAM MOISTURIZING SKIN CREAM 113GM TUBE TOP SCH ×2 (08:41→21:50)
[2020-01-30] MEDS: REMEDY PHYTOPLEX Z-GUARD PASTE 113GM TUBE (FROM STOREROOM PRODUCT) TOP SCH ×3 (08:41→21:51)
[2020-01-30] MEDS: NICOTINE 14 MG/24 HR TRANSDERMAL TD SCH (08:42)
[2020-01-30] MEDS: TRIAMCINOLONE ACET 0.1% OINTMENT 15 GM EXT SCH (08:42)
[2020-01-30] MEDS: DOCUSATE SODIUM 100 MG CAP PO SCH ×3 (09:00→21:49)
--- NOTE | 2020-01-30 09:34 | IPNPDOC ---
PM&R Progress Note DATE OF SERVICE: Jan 30, 2020 [employer] Consultant Progress Note Subjective: Patient stating he heard his left hip pop when he was putting more weight through it on the tilt table and is interested in trying a topical lidocaine patch. REVIEW OF SYSTEMS: The following is a completed review of systems and has been r eviewed. Review of systems otherwise unremarkable. PAIN: Patient self reports left hip pain EYES: No recent vision changes EARS, NOSE, & THROAT:No throat pain, or dysphagia, or rhinorrhea CARDIOVASCULAR: Denies chest pain or palpitations PULMONARY: Denies shortness of breath GASTROINTESTINAL: Denies constipation/diarrhea GENITOURINARY: denies dysuria MUSCULOSKELETAL:generalized weakness NEUROLOGICAL: +peripheral polyneuropathy HEMATOLOGICAL: denies easy bruising SKIN: right dorsal foot surgical wound, posterior left calf wound, right upper arm rash PSYCHIATRIC: Unremarkable All other review of systems found to be negative. PHYSICAL EXAMINATION: VITAL SIGNS: Please see below. GENERAL: Pleasant and cooperative. No acute distress. HEENT: PERRL. Extraocular movements intact. Clear conjunctiva CARDIOVASCULAR: Irregular rate and rhythm. No murmurs, rubs, or gallops LUNGS: Clear to auscultation bilaterally. No wheezes. No rhonchi ABDOMEN: Soft, nontender, nondistended. Positive bowel sounds. Normal active bowel sounds NEUROLOGICAL: Alert and oriented times three. Cranial nerves II through XII grossly intact. Sensation diminished to light touch bilat LE in stocking pattern EXTREMITIES: 5-\5 strength bilateral upper extremities. 4/5 right hip flexion, knee extension, 3/5 ankle DF, 0/5 EHL 1/5 left hip flexion, 3/5 knee extension 0/5 ankle DF/EHL SKIN: hyperkeratotic calves L>R, posterior left calf with vertical wound with healthy granulation tissue, no exudate -right foot with pins in place, no induration noted around the surgical site -right upper arm erythema in circumscribed square pattern (resolved) -LUE picc line site with mild erythema ASSESSMENT:64-year-old M with past medical history of DM and PVD who presents status new onset right sided weakness. PLAN: 1.Rehab- PT/OT advance gait and ADL training, strengthen/stretch/maintain ROM all 4limbs- working on bed mobility and putting weight through left leg -FL[employer] F[employer]DER for cognition eval 2. Neuro: patient with recent acute onset right sided hemiparesis, possibly due to TIA as MRI did not confirm ischemic infarct or posterior reversible encephalopathy syndrome- c/u secondary stroke management with statin, ASA, good BP and glycemic control -c/u Cymbalta which will help with motor recovery - peripheral polyneuropathy due to longstanding DM with gait impairment, optimize DM management 3. Cardiac: Afib cu Amiodarone and betablocker, Eliquis on hold due to intraabdominal hematoma -hx of CAD s/p stenting c/u ASA -chronic diastolic CHF grade 2, c/u daily weight, fluid restrict, monitor for fluid overload -HTN c/u lisinopril and amlodipine, medicine consulted to assist in overall management -HLD c/u statin 4. Resp: c/u duonebs, and Serevent, monitor for infection -CLAUDIA may use own cpap 5. Endo: DM with hyperglycemia and peripheral polyneuropathy- c/u Levemir, ISS 6. Pain: chronic low back pain with chronic opioid use, c/u fentanyl, oxycodone, gabapentin, Cymbalta, baclofen -naloxone ordered prn -lidocaine patch to left hip 7. GI ppx: protonix 8. Hypokalemia- resolved 8. DVT ppx; heparin 9. ID: c/u Nafcillin 2g IV q4h x 6 weeks stop date 02-12-20 per ID 7recs appreciated -c/u triamcinolone for RUE contact dermatitis -f/u ECHO in 2-4 weeks for known vegetations endocarditis -vitamin C and zinc added for wound healing 10. Ortho: s/p right foot fusion [facility]- Dr. Romano following 11. Dispo: 02-06-20 to home, progressing towards goals, will need assistance with some ADls and mobility at home Allergies Coded Allergies: TAPE (Verified Allergy, Mild, RASH/BLISTERS, 08/15/19) Vital Signs Vital Signs Date Time Temp Pulse Resp B/P (MAP) Pulse Ox O2 Delivery O2 Flow Rate FiO2 01/30/20 08:40 17 Room Air 01/30/20 08:36 78 142/71 01/30/20 05:41 96.9 100 01/29/20 06:08 2.0 Laboratory Data Labs 24H Laboratory Tests 2 01/29/20 11:39: Bedside Glucose (Misc Panel) 184H 01/29/20 16:42: Bedside Glucose (Misc Panel) 101 01/29/20 19:43: Bedside Glucose (Misc Panel) 257H 01/30/20 06:02: Bedside Glucose (Misc Panel) 145H Current Medications Current Medications Current Medications Medications (Trade) Dose Ordered Sig/Lexi Route PRN Reason Start Time Stop Time Status Last Admin Dose Admin Acetaminophen (Tylenol Tab) 650 mg Q4HP PRN PO fever/MILD PAIN (PS 1-4) 01/21/20 11:30 01/29/20 20:43 Albuterol/ Ipratropium (Duoneb (Ipr 0.5mg/Alb 2.5mg)) 3 ml RTID NEB 01/21/20 14:00 01/28/20 14:30 Amiodarone HCl (Pacerone, Cordarone) 200 mg BID PO 01/22/20 09:00 01/30/20 08:36 Amlodipine Besylate (Norvasc) 10 mg DAILY PO 01/22/20 09:00 01/30/20 08:36 Ascorbic Acid (Vitamin C) 500 mg DAILY PO 01/22/20 09:00 01/30/20 08:32 Aspirin (Ecotrin) 81 mg DAILY PO 01/22/20 09:00 01/30/20 08:32 Atorvastatin Calcium (Lipitor) 80 mg QHS PO 01/22/20 21:00 01/29/20 20:42 Baclofen (Lioresal) 5 mg TID PO 01/21/20 16:00 01/30/20 08:32 Bisacodyl (Dulcolax Suppository) 10 mg DAILYPRN PRN TX CONSTIPATION 01/21/20 11:30 Bisacodyl (Dulcolax Tab) 5 mg DAILYPRN PRN PO CONSTIPATION 01/21/20 11:30 Dextrose (Dextrose 50%) 25 ml ASDIRECTED PRN IV SEE LABEL COMMENTS 01/21/20 11:30 Docusate Sodium (Colace) 100 mg BID PO 01/21/20 21:00 01/23/20 16:15 DC Duloxetine HCl (Cymbalta) 60 mg DAILY PO 01/22/20 09:00 01/30/20 08:32 Emollient Cream (Vanicream) 1 dose BID TOP 01/21/20 21:00 01/30/20 08:41 Fentanyl (Duragesic) 100 mcg Q72H TOP 01/24/20 09:00 01/30/20 08:40 Gabapentin (Neurontin) 600 mg TID PO 01/21/20 16:00 01/30/20 08:32 Glucagon (Glucagon) 1 mg ASDIRECTED PRN SC SEE LABEL COMMENTS 01/21/20 11:30 Glucose (Glucose) 16 GM ASDIRECTED PRN PO SEE LABEL COMMENTS 01/21/20 11:30 Heparin Sodium (Heparin (Flush)) 200 units ASDIRECTED PRN IV SEE LABEL COMMENTS 01/21/20 17:30 01/29/20 20:46 Heparin Sodium (Heparin (Flush)) 200 units PICC IV 01/21/20 18:00 01/30/20 05:37 Heparin Sodium (Porcine) (Heparin) 5,000 units Q12H SC 01/21/20 21:00 01/30/20 08:30 Home Med (Med Rec Complete!) ASDIRECTED XX 01/21/20 15:00 01/21/20 14:51 DC Insulin Detemir (Levemir Insulin) 45 units BID SC 01/21/20 21:00 01/30/20 08:31 Insulin Human Lispro (HumaLOG INSULIN) SEE PROTOCOL TABLE AC SC 01/21/20 12:00 01/30/20 08:31 Insulin Human Lispro (HumaLOG INSULIN) SEE PROTOCOL TABLE QHS SC 01/21/20 21:00 01/29/20 20:44 Lactobacillus Acidophilus (Bacid) 1 ea TID PO 01/21/20 16:00 01/30/20 08:32 Latanoprost (Xalatan 0.005% Op Soln) 1 drop QHS OU 01/21/20 21:00 01/29/20 20:44 Lisinopril (Prinivil) 2.5 mg DAILY PO 01/22/20 09:00 01/30/20 08:35 Metoprolol Succinate (TopROL XL) 50 mg DAILY PO 01/22/20 09:00 01/30/20 08:36 Miscellaneous (Unresolved Clarification Entry) SEE LABEL COMMENTS DAILY XX 01/25/20 09:00 01/26/20 11:03 DC Multivitamins (Theragram-M) 1 tab DAILY PO 01/22/20 09:00 01/30/20 08:37 Nafcillin Sodium 2 gm/Dextrose 50 ml @ 50 mls/hr Q4H IV 01/21/20 17:00 02/12/20 21:00 01/30/20 08:30 Naloxone HCl (Narcan) 0.1 mg Q5MP PRN IV RESP. RATE < 10 01/21/20 11:30 Nicotine (Nicoderm Cq 14mg) 1 patch DAILY TD 01/21/20 09:00 Non-Formulary Medication ( See Comment Field Below ) SEE COMMENT SECTION ASDIRECTED XX 01/24/20 09:00 01/24/20 08:25 Nystatin (Mycostatin Powder, Nystop) apply to groin BID TOP 01/23/20 09:00 01/30/20 08:40 Oxycodone HCl (Roxicodone, Oxyir) 10 mg Q4HP PRN PO SEVERE PAIN (PS 8-10) 01/21/20 11:30 01/29/20 11:59 Pantoprazole Sodium (Protonix) 40 mg DAILY PO 01/22/20 09:00 01/30/20 08:32 Saliva Substitute (Mouthkote) 1 sprays TID MT 01/21/20 16:00 01/29/20 20:45 Salmeterol Xinafoate (Serevent Diskus) 1 puff BID INH 01/21/20 21:00 01/30/20 07:15 Senna (Senokot) 1 tab QHS PO 01/21/20 21:00 01/29/20 20:43 Sodium Chloride (Saline Lock Flush) 10 ml ASDIRECTED PRN IV SEE LABEL COMMENTS 01/21/20 17:30 01/29/20 20:46 Sodium Chloride (Saline Lock Flush) 10 ml PICC IV 01/21/20 18:00 01/30/20 05:37 Triamcinolone Acetonide (Kenalog 0.1% Ointment) rash on arms from tape DAILY EXT 01/21/20 09:00 01/30/20 08:42 Zinc Sulfate (Zinc Sulfate) 220 mg DAILY PO 01/22/20 09:00 01/30/20 08:33 ANNETTE PLAZA MD Jan 30, 2020 09:34
--- NOTE | 2020-01-30 13:42 | IPNPDOC ---
Date Seen The patient was seen on 01/30/20. Progress Note SUBJECTIVE: Patient appear winded this morning after exertion. States that he is tired but no other specific complaints. Afebrile overnight. OBJECTIVE PHYSICAL EXAMINATION: VITAL SIGNS: Please see below. General: No acute distress, Alert Eyes: Normal sclera, EOMI HENT: Atraumatic Cardiovascular: Normal rate Pulmonary: Clear to auscultation b/l, no wheezing GI: Soft, nontender Skin: Warm and dry. b/l LE dried and darkened below the knees. MSK: R. foot with multiple pin/hardware protruding from wrapping. Neuro: CN grossly intact. No focal deficits. Strengths equal b/l. Psych: oriented x 3 LABORATORY DATA, IMAGING STUDIES, MICROBIOLOGY: Please see below. DVT prophylaxis ordered?: HSQ ASSESSMENT AND PLAN: 1. TIA - Continue with PT and OT. Patient is R. leg predominant but now cannot fully weightbear due to R. foot surgery and hardware. - c/w ASA and statin. - No current neurological deficits. Recently transferred to [place] for hemiparesis and neglect and was transferred back after no acute findings were noted on imaging. 2. Acute osteomyelitis of R. foot. - s/p fusion with external fixator by podiatry. - On IV Nafcillin 2g q4 until 02/11. 3. Aortic valve endocarditis - + blood cultures for MSSA on 12/29 and 12/30. - On IV antibiotics already with Nafcillin. ID following. 4. DM with peripheral neuropathy - c/w levemir and ISS. - diabetic diet. 5. Afib - Previously on Eliquis but held due to retroperitoneal hematoma. - c/w amiodarone and metoprolol. 6. Chronic HFpEF grade 2 - Monitor I/O and weight. - fluid restriction. 7. CAD - s/p ASA. 8. HTN - BP controlled on lisinopril and metoprolol. 9. HLD - On atorvastatin. 10. Contact dermatitis - c/w triamcinolone cream and gauze with paper tape as needed. VS, I&O, 24H, Fishbone Vital Signs/I&O Vital Signs Date Time Temp Pulse Resp B/P (MAP) Pulse Ox O2 Delivery O2 Flow Rate FiO2 01/30/20 09:10 18 01/30/20 08:40 Room Air 01/30/20 08:36 78 142/71 01/30/20 05:41 96.9 100 01/29/20 06:08 2.0 I&O- Last 24 Hours up to 6 AM 01/30/20 06:00 Intake Total 1780 ml Output Total 2250 ml Balance -470 ml Laboratory Data 24H LABS Laboratory Tests 2 01/29/20 16:42: Bedside Glucose (Misc Panel) 101 01/29/20 19:43: Bedside Glucose (Misc Panel) 257H 01/30/20 06:02: Bedside Glucose (Misc Panel) 145H 01/30/20 11:34: Bedside Glucose (Misc Panel) 223H JULIO BORDEN MD Jan 30, 2020 13:42
[2020-01-30 14:00] VITALS: BP 168/79
[2020-01-30] MEDS: SODIUM CHLORIDE NASAL 0.65% SPRAY BTL (OCEAN) SCH ×2 (17:04→20:14)
[2020-01-30] MEDS: oxyCODONE 5MG TAB PO PRN ×2 (17:31→21:48)
[2020-01-30] MEDS: LATANOPROST 0.005% OPHTH SOLN 2.5 ML OU SCH (20:14)
[2020-01-30 20:30] VITALS: BP 157/79
[2020-01-30] MEDS: FLUTICASONE PROP 0.05% NASAL SPRAY 16 GM (FLONASE) NARES SCH (21:00)
[2020-01-30] MEDS: SODIUM CHLORIDE 0.9% INJ 10 ML SYR IV PRN (21:46)
[2020-01-30] MEDS: ATORVASTATIN 20 MG TAB PO SCH (21:48)
[2020-01-30] MEDS: SENNA 8.6 MG TAB (SENOKOT) PO SCH (21:49)
[2020-01-31] MEDS: SODIUM CHLORIDE 0.9% INJ 10 ML SYR IV PRN ×4 (01:28→13:19)
[2020-01-31] MEDS: NAFCILLIN SOD 2 GM in D5W MINI-BAG PLUS 50 ML IV SCH ×6 (01:28→20:32)
[2020-01-31 06:00] VITALS: BP 159/80
[2020-01-31] MEDS: SODIUM CHLORIDE 0.9% INJ 10 ML SYR IV SCH ×2 (06:45→17:49)
[2020-01-31] MEDS: SALMETEROL DISKUS 50MCG INHALER (SEREVENT) INH SCH ×2 (07:22→19:43)
[2020-01-31] MEDS: IPRATROPIUM 0.5MG/ALBUTEROL 2.5MG INH SOL UD 3ML (DUONEB) NEB SCH ×3 (07:22→19:43)
[2020-01-31 07:46] LABS: BASO # 0.1 10^3/uL (0.0-0.2); EOS # 0.2 10^3/uL (0.0-0.5); EOS % 2.9 % (0.0-3.0); HEMATOCRIT 35.8 % (42.0-52.0); HEMOGLOBIN 10.6 g/dl (13.5-17.5); LYMPH # 1.5 10^3/uL (1.5-5.0); LYMPH % 21.5 % (24.0-44.0); MEAN CORPUSCULAR HEMOGLOBIN 25.2 pg (27.0-33.0); MEAN CORPUSCULAR HGB CONC 29.6 g/dl (32.0-36.5); MEAN CORPUSCULAR VOLUME 85.2 fl (80.0-96.0); MONO # 0.5 10^3/uL (0.0-0.8); MONO % 7.8 % (0.0-5.0); NEUTROPHILS # 4.6 10^3/uL (1.5-8.5); NEUTROPHILS % 66.1 % (36.0-66.0); PLATELET COUNT, AUTOMATED 208 10^3/uL (150-450); WHITE BLOOD COUNT 6.9 10^3/uL (4.0-10.0)
[2020-01-31 08:09] LABS: BLOOD UREA NITROGEN 15 MG/DL (7-18); CALCIUM LEVEL 8.9 MG/DL (8.8-10.2); CARBON DIOXIDE LEVEL 35 MEQ/L (21-32); CHLORIDE LEVEL 100 MEQ/L (98-107); CREATININE FOR GFR 0.92 MG/DL (0.70-1.30); GLOMERULAR FILTRATION RATE > 60.0 (>49); GLUCOSE, FASTING 176 MG/DL (70-100); POTASSIUM SERUM 3.7 MEQ/L (3.5-5.1); SODIUM LEVEL 139 MEQ/L (136-145)
[2020-01-31] MEDS: BACLOFEN 5MG PER 1/2 TABLET PO SCH ×3 (08:40→20:32)
[2020-01-31] MEDS: DOCUSATE SODIUM 100 MG CAP PO SCH ×3 (08:40→20:33)
[2020-01-31] MEDS: ZINC SULFATE 220 MG CAP PO SCH (08:41)
[2020-01-31] MEDS: LISINOPRIL *2.5 MG* TAB PO SCH (08:41)
[2020-01-31] MEDS: METOPROLOL SUCC (TopROL XL) 50MG **XL** TAB PO SCH (08:41)
[2020-01-31] MEDS: MULTIVITAMINS/MINERALS THERAP 1 TAB PO SCH (08:42)
[2020-01-31] MEDS: ASPIRIN 81 MG ENTERIC TAB PO SCH (08:42)
[2020-01-31] MEDS: AMIODARONE 200 MG TAB (PACERONE) PO SCH ×2 (08:42→20:32)
[2020-01-31] MEDS: amLODIPine 10 MG TAB PO SCH (08:42)
[2020-01-31] MEDS: ASCORBIC ACID 500 MG TAB PO SCH (08:42)
[2020-01-31] MEDS: HEPARIN SOD (PORCINE) 5000UNITS/ML 1ML VIAL/SYRINGE SC SCH ×2 (08:42→20:32)
[2020-01-31] MEDS: DULoxetine 30 MG CAP (CYMBALTA) PO SCH (08:42)
[2020-01-31] MEDS: LACTOBACILLUS ACIDOPHILUS CAP (BACID) PO SCH ×3 (08:42→20:33)
[2020-01-31] MEDS: PANTOPRAZOLE 40MG TAB (PROTONIX) PO SCH (08:42)
[2020-01-31] MEDS: GABAPENTIN 300 MG CAP PO SCH ×3 (08:42→20:33)
[2020-01-31] MEDS: LEVEMIR (INSULIN DETEMIR) 1 UNITS/0.01ML SC SCH ×2 (08:43→20:32)
[2020-01-31] MEDS: HumaLOG INSULIN (NovoLOG) PER UNIT SC SCH ×4 (08:44→21:56)
[2020-01-31] MEDS: SALIVA SUBSTITUTE(MOUTHKOTE) BTL MT SCH ×3 (08:44→20:33)
[2020-01-31] MEDS: SODIUM CHLORIDE NASAL 0.65% SPRAY BTL (OCEAN) SCH ×3 (08:44→20:34)
[2020-01-31] MEDS: FLUTICASONE PROP 0.05% NASAL SPRAY 16 GM (FLONASE) NARES SCH ×2 (08:44→20:34)
[2020-01-31] MEDS: NICOTINE 14 MG/24 HR TRANSDERMAL TD SCH (08:45)
[2020-01-31] MEDS: NYSTATIN 100,000 UNITS/GM TOPICAL PWD 15 GM TOP SCH ×2 (08:46→20:34)
[2020-01-31] MEDS: VANICREAM MOISTURIZING SKIN CREAM 113GM TUBE TOP SCH ×2 (08:46→20:35)
[2020-01-31] MEDS: TRIAMCINOLONE ACET 0.1% OINTMENT 15 GM EXT SCH (08:46)
[2020-01-31] MEDS: REMEDY PHYTOPLEX Z-GUARD PASTE 113GM TUBE (FROM STOREROOM PRODUCT) TOP SCH ×3 (08:47→20:35)
[2020-01-31] MEDS: oxyCODONE 5MG TAB PO PRN ×2 (13:21→21:54)
[2020-01-31] MEDS: LIDOCAINE 5% (LIDODERM) PATCH TD SCH (13:24)
[2020-01-31 14:00] VITALS: BP 141/86
[2020-01-31 20:00] VITALS: BP 154/72
[2020-01-31] MEDS: SENNA 8.6 MG TAB (SENOKOT) PO SCH (20:33)
[2020-01-31] MEDS: ACETAMINOPHEN TAB 650MG DOSE (2X325MG) PO PRN (20:33)
[2020-01-31] MEDS: ATORVASTATIN 20 MG TAB PO SCH (20:33)
[2020-01-31] MEDS: LATANOPROST 0.005% OPHTH SOLN 2.5 ML OU SCH (20:34)
[2020-01-31] MEDS: **NOTE PATIENT COMMENT** MISC XX SCH (20:38)
[2020-02-01] MEDS: NAFCILLIN SOD 2 GM in D5W MINI-BAG PLUS 50 ML IV SCH ×6 (01:05→20:29)
[2020-02-01] MEDS: SODIUM CHLORIDE 0.9% INJ 10 ML SYR IV SCH ×2 (05:13→17:18)
[2020-02-01 05:17] VITALS: BP 146/73
[2020-02-01] MEDS: SALMETEROL DISKUS 50MCG INHALER (SEREVENT) INH SCH ×2 (07:48→19:43)
[2020-02-01] MEDS: IPRATROPIUM 0.5MG/ALBUTEROL 2.5MG INH SOL UD 3ML (DUONEB) NEB SCH ×3 (08:00→19:58)
[2020-02-01] MEDS: LEVEMIR (INSULIN DETEMIR) 1 UNITS/0.01ML SC SCH ×2 (08:44→20:26)
[2020-02-01] MEDS: LIDOCAINE 5% (LIDODERM) PATCH TD SCH (08:44)
[2020-02-01] MEDS: HumaLOG INSULIN (NovoLOG) PER UNIT SC SCH ×4 (08:44→20:25)
[2020-02-01] MEDS: LISINOPRIL *2.5 MG* TAB PO SCH (08:45)
[2020-02-01] MEDS: MULTIVITAMINS/MINERALS THERAP 1 TAB PO SCH (08:45)
[2020-02-01] MEDS: ASCORBIC ACID 500 MG TAB PO SCH (08:45)
[2020-02-01] MEDS: LACTOBACILLUS ACIDOPHILUS CAP (BACID) PO SCH ×3 (08:45→20:24)
[2020-02-01] MEDS: ZINC SULFATE 220 MG CAP PO SCH (08:45)
[2020-02-01] MEDS: HEPARIN SOD (PORCINE) 5000UNITS/ML 1ML VIAL/SYRINGE SC SCH ×2 (08:45→20:24)
[2020-02-01] MEDS: oxyCODONE 5MG TAB PO PRN ×3 (08:45→22:26)
[2020-02-01] MEDS: ASPIRIN 81 MG ENTERIC TAB PO SCH (08:46)
[2020-02-01] MEDS: DOCUSATE SODIUM 100 MG CAP PO SCH ×3 (08:46→20:24)
[2020-02-01] MEDS: AMIODARONE 200 MG TAB (PACERONE) PO SCH ×2 (08:46→20:24)
[2020-02-01] MEDS: METOPROLOL SUCC (TopROL XL) 50MG **XL** TAB PO SCH (08:46)
[2020-02-01] MEDS: PANTOPRAZOLE 40MG TAB (PROTONIX) PO SCH (08:46)
[2020-02-01] MEDS: BACLOFEN 5MG PER 1/2 TABLET PO SCH ×3 (08:46→20:24)
[2020-02-01] MEDS: amLODIPine 10 MG TAB PO SCH (08:46)
[2020-02-01] MEDS: GABAPENTIN 300 MG CAP PO SCH ×3 (08:46→20:24)
[2020-02-01] MEDS: DULoxetine 30 MG CAP (CYMBALTA) PO SCH (08:46)
[2020-02-01] MEDS: SODIUM CHLORIDE NASAL 0.65% SPRAY BTL (OCEAN) SCH ×3 (08:50→20:27)
[2020-02-01] MEDS: FLUTICASONE PROP 0.05% NASAL SPRAY 16 GM (FLONASE) NARES SCH ×2 (08:50→20:26)
[2020-02-01] MEDS: NYSTATIN 100,000 UNITS/GM TOPICAL PWD 15 GM TOP SCH ×2 (08:50→20:26)
[2020-02-01] MEDS: TRIAMCINOLONE ACET 0.1% OINTMENT 15 GM EXT SCH (08:50)
[2020-02-01] MEDS: VANICREAM MOISTURIZING SKIN CREAM 113GM TUBE TOP SCH ×2 (08:51→20:27)
[2020-02-01] MEDS: REMEDY PHYTOPLEX Z-GUARD PASTE 113GM TUBE (FROM STOREROOM PRODUCT) TOP SCH ×3 (08:51→20:28)
[2020-02-01] MEDS: NICOTINE 14 MG/24 HR TRANSDERMAL TD SCH (09:00)
[2020-02-01] MEDS: SALIVA SUBSTITUTE(MOUTHKOTE) BTL MT SCH ×3 (09:00→20:27)
[2020-02-01 14:00] VITALS: BP 144/76
--- NOTE | 2020-02-01 14:53 | IPNPDOC ---
Date Seen The patient was seen on 02/01/20. Progress Note SUBJECTIVE: Patient was having PT this morning, reports that he has pain in his hands, thinking it may be due to the neuropathy. He is noted to have been doing more upper body exercises in bed and using his hand more to lift himself up. No acute events reported. No other complaints. OBJECTIVE PHYSICAL EXAMINATION: VITAL SIGNS: Please see below. General: No acute distress, Alert Eyes: Normal sclera, EOMI HENT: Atraumatic Cardiovascular: Normal rate Pulmonary: Clear to auscultation b/l, no wheezing GI: Soft, nontender Skin: Warm and dry. b/l LE dried and darkened below the knees. MSK: R. foot with multiple pin/hardware protruding from wrapping. Neuro: CN grossly intact. No focal deficits. Generalized weakness. Psych: oriented x 3 LABORATORY DATA, IMAGING STUDIES, MICROBIOLOGY: Please see below. DVT prophylaxis ordered?: HSQ ASSESSMENT AND PLAN: 1. TIA - Continue with PT and OT. Patient is R. leg predominant but now cannot fully weightbear due to R. foot surgery. - c/w ASA and statin. - No current neurological deficits. Recently transferred to [place] for hemiparesis and neglect and was transferred back after no acute findings were noted on imaging. 2. Acute osteomyelitis of R. foot. - s/p fusion with external fixator by podiatry. - On IV Nafcillin 2g q4 until 02/11. 3. Aortic valve endocarditis - + blood cultures for MSSA on 12/29 and 12/30. - On IV antibiotics already with Nafcillin. ID following. 4. DM with peripheral neuropathy - c/w levemir and ISS. - diabetic diet. 5. Afib - Previously on Eliquis but held due to retroperitoneal hematoma. - c/w amiodarone and metoprolol. 6. Chronic HFpEF grade 2 - Monitor I/O and weight. - fluid restriction. 7. CAD - s/p ASA. 8. HTN - BP controlled on lisinopril and metoprolol. 9. HLD - On atorvastatin. 10. Contact dermatitis - c/w triamcinolone cream and gauze with paper tape as needed. VS, I&O, 24H, Fishbone Vital Signs/I&O Vital Signs Date Time Temp Pulse Resp B/P (MAP) Pulse Ox O2 Delivery O2 Flow Rate FiO2 02/01/20 14:46 16 02/01/20 14:00 98.1 80 144/76 (98) 94 Room Air 02/01/20 05:17 2.0 I&O- Last 24 Hours up to 6 AM 02/01/20 06:00 Intake Total 1060 ml Output Total 2350 ml Balance -1290 ml Laboratory Data 24H LABS Laboratory Tests 2 01/31/20 17:15: Bedside Glucose (Misc Panel) 172H 01/31/20 20:27: Bedside Glucose (Misc Panel) 260H 02/01/20 06:25: Bedside Glucose (Misc Panel) 141H 02/01/20 11:41: Bedside Glucose (Misc Panel) 197H JULIO BORDEN MD Feb 01, 2020 14:53
[2020-02-01 20:00] VITALS: BP 142/77
[2020-02-01] MEDS: ATORVASTATIN 20 MG TAB PO SCH (20:24)
[2020-02-01] MEDS: ACETAMINOPHEN TAB 650MG DOSE (2X325MG) PO PRN (20:24)
[2020-02-01] MEDS: SENNA 8.6 MG TAB (SENOKOT) PO SCH (20:25)
[2020-02-01] MEDS: LATANOPROST 0.005% OPHTH SOLN 2.5 ML OU SCH (20:26)
[2020-02-01] MEDS: **NOTE PATIENT COMMENT** MISC XX SCH (20:28)
[2020-02-02] MEDS: NAFCILLIN SOD 2 GM in D5W MINI-BAG PLUS 50 ML IV SCH ×6 (00:31→20:32)
[2020-02-02] MEDS: SODIUM CHLORIDE 0.9% INJ 10 ML SYR IV SCH ×2 (04:35→16:54)
[2020-02-02 05:06] VITALS: BP 138/78
[2020-02-02] MEDS: IPRATROPIUM 0.5MG/ALBUTEROL 2.5MG INH SOL UD 3ML (DUONEB) NEB SCH ×3 (07:48→18:18)
[2020-02-02] MEDS: SALMETEROL DISKUS 50MCG INHALER (SEREVENT) INH SCH ×2 (07:49→18:18)
[2020-02-02] MEDS: LIDOCAINE 5% (LIDODERM) PATCH TD SCH (08:27)
[2020-02-02] MEDS: LEVEMIR (INSULIN DETEMIR) 1 UNITS/0.01ML SC SCH ×2 (08:27→20:34)
[2020-02-02] MEDS: HumaLOG INSULIN (NovoLOG) PER UNIT SC SCH ×4 (08:27→20:34)
[2020-02-02] MEDS: fentaNYL 100 MCG/HR PATCH TOP SCH (08:28)
[2020-02-02] MEDS: ASPIRIN 81 MG ENTERIC TAB PO SCH (08:28)
[2020-02-02] MEDS: AMIODARONE 200 MG TAB (PACERONE) PO SCH ×2 (08:28→20:34)
[2020-02-02] MEDS: METOPROLOL SUCC (TopROL XL) 50MG **XL** TAB PO SCH (08:28)
[2020-02-02] MEDS: HEPARIN SOD (PORCINE) 5000UNITS/ML 1ML VIAL/SYRINGE SC SCH ×2 (08:28→20:33)
[2020-02-02] MEDS: amLODIPine 10 MG TAB PO SCH (08:29)
[2020-02-02] MEDS: LISINOPRIL *2.5 MG* TAB PO SCH (08:29)
[2020-02-02] MEDS: FLUTICASONE PROP 0.05% NASAL SPRAY 16 GM (FLONASE) NARES SCH ×2 (08:29→20:35)
[2020-02-02] MEDS: ZINC SULFATE 220 MG CAP PO SCH (08:29)
[2020-02-02] MEDS: PANTOPRAZOLE 40MG TAB (PROTONIX) PO SCH (08:29)
[2020-02-02] MEDS: DULoxetine 30 MG CAP (CYMBALTA) PO SCH (08:29)
[2020-02-02] MEDS: GABAPENTIN 300 MG CAP PO SCH ×3 (08:29→20:33)
[2020-02-02] MEDS: BACLOFEN 5MG PER 1/2 TABLET PO SCH ×3 (08:29→20:33)
[2020-02-02] MEDS: LACTOBACILLUS ACIDOPHILUS CAP (BACID) PO SCH ×3 (08:29→20:33)
[2020-02-02] MEDS: MULTIVITAMINS/MINERALS THERAP 1 TAB PO SCH (08:29)
[2020-02-02] MEDS: ASCORBIC ACID 500 MG TAB PO SCH (08:29)
[2020-02-02] MEDS: SODIUM CHLORIDE NASAL 0.65% SPRAY BTL (OCEAN) SCH ×3 (08:29→20:35)
[2020-02-02] MEDS: NICOTINE 14 MG/24 HR TRANSDERMAL TD SCH (08:30)
[2020-02-02] MEDS: REMEDY PHYTOPLEX Z-GUARD PASTE 113GM TUBE (FROM STOREROOM PRODUCT) TOP SCH ×3 (08:30→20:37)
[2020-02-02] MEDS: NYSTATIN 100,000 UNITS/GM TOPICAL PWD 15 GM TOP SCH ×2 (08:30→20:37)
[2020-02-02] MEDS: TRIAMCINOLONE ACET 0.1% OINTMENT 15 GM EXT SCH (08:30)
[2020-02-02] MEDS: DOCUSATE SODIUM 100 MG CAP PO SCH ×3 (08:31→20:35)
[2020-02-02] MEDS: VANICREAM MOISTURIZING SKIN CREAM 113GM TUBE TOP SCH ×2 (08:31→20:37)
[2020-02-02] MEDS: SALIVA SUBSTITUTE(MOUTHKOTE) BTL MT SCH ×3 (08:31→20:35)
[2020-02-02] MEDS: BETAMETHASONE DIP 0.05% OINT 15 GM TOP SCH (10:37)
[2020-02-02] MEDS ORDERED: RAMELTEON 8 MG TAB (ROZEREM) PO PRN (11:00)
--- NOTE | 2020-02-02 11:02 | IPNPDOC ---
Date Seen The patient was seen on 02/02/20. Progress Note SUBJECTIVE: Patient was noted to have oozing from his L. arm around the PICC line with a large area under neath dressing that was erythematous with surrounding elevated scales. Appear to be contact dermatitis despite the use of hypoallogenic dressing over the site. Betamethasone cream is ordered to apply underneath ABD. Afebrile overnight and offered no other complaints. OBJECTIVE PHYSICAL EXAMINATION: VITAL SIGNS: Please see below. General: No acute distress, Alert Eyes: Normal sclera, EOMI HENT: Atraumatic Cardiovascular: Normal rate Pulmonary: Clear to auscultation b/l, no wheezing GI: Soft, nontender Skin: Warm and dry. b/l LE dried and darkened below the knees, large area of erythema surrounding by scales at periphery over L. medial bicep region at site of PICC line and dressing placement. MSK: R. foot with multiple pin/hardware protruding from wrapping. Neuro: CN grossly intact. No focal deficits. Generalized weakness. Psych: oriented x 3 LABORATORY DATA, IMAGING STUDIES, MICROBIOLOGY: Please see below. DVT prophylaxis ordered?: HSQ ASSESSMENT AND PLAN: 1. TIA - Continue with PT and OT. Patient is R. leg predominant but now cannot fully weightbear due to R. foot surgery. - c/w ASA and statin. - No current neurological deficits. Recently transferred to [place] for hemiparesis and neglect and was transferred back after no acute findings were noted on imaging. 2. Acute osteomyelitis of R. foot. - s/p fusion with external fixator by podiatry. - On IV Nafcillin 2g q4 until 02/11. 3. Aortic valve endocarditis - + blood cultures for MSSA on 12/29 and 12/30. - On IV antibiotics already with Nafcillin. ID following. 4. DM with peripheral neuropathy - c/w levemir and ISS. - diabetic diet. 5. Afib - Previously on Eliquis but held due to retroperitoneal hematoma. - c/w amiodarone and metoprolol. 6. Chronic HFpEF grade 2 - Monitor I/O and weight. - fluid restriction. 7. CAD - s/p ASA. 8. HTN - BP controlled on lisinopril and metoprolol. 9. HLD - On atorvastatin. 10. Contact dermatitis - Worsened over the past few days despite triamcinolone cream. - Switched to betametasone instead to see if it will help. VS, I&O, 24H, Fishbone Vital Signs/I&O Vital Signs Date Time Temp Pulse Resp B/P (MAP) Pulse Ox O2 Delivery O2 Flow Rate FiO2 02/02/20 08:58 16 02/02/20 08:29 138/78 02/02/20 08:29 76 02/02/20 05:06 96.9 98 Nasal Cannula 2.0 I&O- Last 24 Hours up to 6 AM 02/02/20 06:00 Intake Total 1110 ml Output Total 3050 ml Balance -1940 ml Laboratory Data 24H LABS Laboratory Tests 2 02/01/20 11:41: Bedside Glucose (Misc Panel) 197H 02/01/20 16:38: Bedside Glucose (Misc Panel) 242H 02/01/20 19:38: Bedside Glucose (Misc Panel) 291H 02/02/20 05:11: Bedside Glucose (Misc Panel) 183H JULIO BORDEN MD Feb 02, 2020 11:02
[2020-02-02 14:00] VITALS: BP 145/75
[2020-02-02] MEDS: oxyCODONE 5MG TAB PO PRN ×2 (14:40→22:38)
[2020-02-02 19:48] VITALS: BP 113/70
[2020-02-02] MEDS: ATORVASTATIN 20 MG TAB PO SCH (20:33)
[2020-02-02] MEDS: SENNA 8.6 MG TAB (SENOKOT) PO SCH (20:35)
[2020-02-02] MEDS: LATANOPROST 0.005% OPHTH SOLN 2.5 ML OU SCH (20:35)
[2020-02-02] MEDS: **NOTE PATIENT COMMENT** MISC XX SCH (20:52)
[2020-02-03] MEDS: NAFCILLIN SOD 2 GM in D5W MINI-BAG PLUS 50 ML IV SCH ×6 (01:06→21:58)
[2020-02-03] MEDS: SODIUM CHLORIDE 0.9% INJ 10 ML SYR IV SCH ×2 (05:11→17:17)
[2020-02-03 05:15] VITALS: BP 139/84
[2020-02-03] MEDS: HumaLOG INSULIN (NovoLOG) PER UNIT SC SCH ×4 (07:50→22:09)
[2020-02-03] MEDS: IPRATROPIUM 0.5MG/ALBUTEROL 2.5MG INH SOL UD 3ML (DUONEB) NEB SCH ×3 (07:53→20:00)
[2020-02-03] MEDS: SALMETEROL DISKUS 50MCG INHALER (SEREVENT) INH SCH ×2 (07:53→20:30)
[2020-02-03 08:41] LABS: BASO # 0.1 10^3/uL (0.0-0.2); BASO % 1.1 % (0.0-1.0); EOS # 0.5 10^3/uL (0.0-0.5); EOS % 5.7 % (0.0-3.0); HEMATOCRIT 38.5 % (42.0-52.0); HEMOGLOBIN 11.1 g/dl (13.5-17.5); LYMPH % 24.8 % (24.0-44.0); MEAN CORPUSCULAR HEMOGLOBIN 25.5 pg (27.0-33.0); MEAN CORPUSCULAR HGB CONC 28.8 g/dl (32.0-36.5); MEAN CORPUSCULAR VOLUME 88.5 fl (80.0-96.0); MONO # 0.8 10^3/uL (0.0-0.8); MONO % 9.8 % (0.0-5.0); NEUTROPHILS # 4.6 10^3/uL (1.5-8.5); PLATELET COUNT, AUTOMATED 178 10^3/uL (150-450); RED BLOOD COUNT 4.35 10^6/uL (4.30-6.10); WHITE BLOOD COUNT 7.9 10^3/uL (4.0-10.0)
[2020-02-03] MEDS: NICOTINE 14 MG/24 HR TRANSDERMAL TD SCH (09:00)
[2020-02-03] MEDS: LEVEMIR (INSULIN DETEMIR) 1 UNITS/0.01ML SC SCH ×2 (09:00→21:59)
[2020-02-03 09:06] LABS: BLOOD UREA NITROGEN 20 MG/DL (7-18); C REACTIVE PROTEIN QUANTITATIV 1.29 MG/DL (0.00-0.30); CALCIUM LEVEL 8.6 MG/DL (8.8-10.2); CARBON DIOXIDE LEVEL 34 MEQ/L (21-32); CHLORIDE LEVEL 101 MEQ/L (98-107); CREATININE FOR GFR 1.07 MG/DL (0.70-1.30); GLOMERULAR FILTRATION RATE > 60.0 (>49); GLUCOSE, FASTING 129 MG/DL (70-100); SODIUM LEVEL 141 MEQ/L (136-145)
[2020-02-03] MEDS: ZINC SULFATE 220 MG CAP PO SCH (09:31)
[2020-02-03] MEDS: DOCUSATE SODIUM 100 MG CAP PO SCH ×4 (09:33→22:09)
[2020-02-03] MEDS: amLODIPine 10 MG TAB PO SCH (09:33)
[2020-02-03] MEDS: AMIODARONE 200 MG TAB (PACERONE) PO SCH ×2 (09:34→21:59)
[2020-02-03] MEDS: GABAPENTIN 300 MG CAP PO SCH ×3 (09:34→22:00)
[2020-02-03] MEDS: DULoxetine 30 MG CAP (CYMBALTA) PO SCH (09:34)
[2020-02-03] MEDS: ASCORBIC ACID 500 MG TAB PO SCH (09:34)
[2020-02-03] MEDS: ASPIRIN 81 MG ENTERIC TAB PO SCH (09:34)
[2020-02-03] MEDS: MULTIVITAMINS/MINERALS THERAP 1 TAB PO SCH (09:34)
[2020-02-03] MEDS: METOPROLOL SUCC (TopROL XL) 50MG **XL** TAB PO SCH (09:34)
[2020-02-03] MEDS: LISINOPRIL *2.5 MG* TAB PO SCH (09:35)
[2020-02-03] MEDS: oxyCODONE 5MG TAB PO PRN ×2 (09:35→17:12)
[2020-02-03] MEDS: PANTOPRAZOLE 40MG TAB (PROTONIX) PO SCH (09:35)
[2020-02-03] MEDS: LACTOBACILLUS ACIDOPHILUS CAP (BACID) PO SCH ×3 (09:35→22:00)
[2020-02-03] MEDS: LIDOCAINE 5% (LIDODERM) PATCH TD SCH (09:36)
[2020-02-03] MEDS: HEPARIN SOD (PORCINE) 5000UNITS/ML 1ML VIAL/SYRINGE SC SCH ×2 (09:39→21:58)
[2020-02-03] MEDS: VANICREAM MOISTURIZING SKIN CREAM 113GM TUBE TOP SCH ×2 (09:41→22:04)
[2020-02-03] MEDS: BETAMETHASONE DIP 0.05% OINT 15 GM TOP SCH (09:41)
[2020-02-03] MEDS: FLUTICASONE PROP 0.05% NASAL SPRAY 16 GM (FLONASE) NARES SCH ×2 (09:41→22:01)
[2020-02-03] MEDS: SODIUM CHLORIDE NASAL 0.65% SPRAY BTL (OCEAN) SCH ×3 (09:42→22:01)
[2020-02-03] MEDS: REMEDY PHYTOPLEX Z-GUARD PASTE 113GM TUBE (FROM STOREROOM PRODUCT) TOP SCH ×3 (09:42→22:10)
[2020-02-03] MEDS: NYSTATIN 100,000 UNITS/GM TOPICAL PWD 15 GM TOP SCH ×2 (09:42→22:02)
[2020-02-03] MEDS: SALIVA SUBSTITUTE(MOUTHKOTE) BTL MT SCH ×3 (09:43→22:09)
[2020-02-03] MEDS: TRIAMCINOLONE ACET 0.1% OINTMENT 15 GM EXT SCH (09:43)
[2020-02-03] MEDS: BACLOFEN 5MG PER 1/2 TABLET PO SCH ×3 (10:55→21:59)
--- NOTE | 2020-02-03 11:40 | IPNPDOC ---
PM&R Progress Note DATE OF SERVICE: Jan 31, 2020 Director Of Optimization Progress Note Subjective: Patient wondering if his infection is responding to the antibiotics. He is concerned about his 's health stating she is awaiting labwork today. REVIEW OF SYSTEMS: The following is a completed review of systems and has been reviewed. Review of systems otherwise unremarkable. PAIN: Patient self reports left hip pain EYES: No recent vision changes EARS, NOSE, & THROAT:No throat pain, or dysphagia, or rhinorrhea CARDIOVASCULAR: Denies chest pain or palpitations PULMONARY: Denies shortness of breath GASTROINTESTINAL: Denies constipation/diarrhea GENITOURINARY: denies dysuria MUSCULOSKELETAL:generalized weakness NEUROLOGICAL: +peripheral polyneuropathy HEMATOLOGICAL: denies easy bruising SKIN: right dorsal foot surgical wound, posterior left calf wound, right upper arm rash PSYCHIATRIC: Unremarkable All other review of systems found to be negative. PHYSICAL EXAMINATION: VITAL SIGNS: Please see below. GENERAL: Pleasant and cooperative. No acute distress. HEENT: PERRL. Extraocular movements intact. Clear conjunctiva CARDIOVASCULAR: Irregular rate and rhythm. No murmurs, rubs, or gallops LUNGS: Clear to auscultation bilaterally. No wheezes. No rhonchi ABDOMEN: Soft, nontender, nondistended. Positive bowel sounds. Normal active bowel sounds NEUROLOGICAL: Alert and oriented times three. Cranial nerves II through XII grossly intact. Sensation diminished to light touch bilat LE in stocking pattern EXTREMITIES: 5-\5 strength bilateral upper extremities. 4/5 right hip flexion, knee extension, 3/5 ankle DF, 0/5 EHL 1/5 left hip flexion, 3/5 knee extension 0/5 ankle DF/EHL SKIN: hyperkeratotic calves L>R, posterior left calf with vertical wound with healthy granulation tissue, no exudate -right foot with pins in place, no induration noted around the surgical site -right upper arm erythema in circumscribed square pattern (resolved) -LUE picc line site with mild erythema ASSESSMENT:64-year-old M with past medical history of DM and PVD who presents status new onset right sided weakness. PLAN: 1.Rehab- PT/OT advance gait and ADL training, strengthen/stretch/maintain ROM all 4limbs- working on bed mobility and putting weight through left leg -HEAT TREATMENT TECHNICIAN for cognition eval 2. Neuro: patient with recent acute onset right sided hemiparesis, possibly due to TIA as MRI did not confirm ischemic infarct or posterior reversible enc ephalopathy syndrome- c/u secondary stroke management with statin, ASA, good BP and glycemic control -c/u Cymbalta which will help with motor recovery - peripheral polyneuropathy due to longstanding DM with gait impairment, optimize DM management 3. Cardiac: Afib cu Amiodarone and betablocker, Eliquis on hold due to intraabdominal hematoma -hx of CAD s/p stenting c/u ASA -chronic diastolic CHF grade 2, c/u daily weight, fluid restrict, monitor for fluid overload -HTN c/u lisinopril and amlodipine, medicine consulted to assist in overall management -HLD c/u statin 4. Resp: c/u duonebs, and Serevent, monitor for infection -CLAUDIA may use own cpap 5. Endo: DM with hyperglycemia and peripheral polyneuropathy- c/u Levemir, ISS 6. Pain: chronic low back pain with chronic opioid use, c/u fentanyl, oxycodone, gabapentin, Cymbalta, baclofen -naloxone ordered prn -c/u lidocaine patch to left hip 7. GI ppx: protonix 8. Hypokalemia- resolved 8. DVT ppx; heparin 9. ID: c/u Nafcillin 2g IV q4h x 6 weeks stop date 02-12-20 per ID 7recs appreciated-following CRP, no leukocytosis or fever -c/u triamcinolone for RUE contact dermatitis and vanicream -f/u ECHO in 2-4 weeks for known vegetations endocarditis -vitamin C and zinc added for wound healing 10. Ortho: s/p right foot fusion NWB- Dr. Romano following 11. Dispo: 02-06-20 to home, progressing towards goals, will need assistance with some ADls and mobility at home Allergies Coded Allergies: TAPE (Verified Allergy, Mild, RASH/BLISTERS, 08/15/19) Vital Signs Vital Signs Date Time Temp Pulse Resp B/P (MAP) Pulse Ox O2 Delivery O2 Flow Rate FiO2 02/03/20 10:05 18 Room Air 02/03/20 09:35 133/64 02/03/20 09:34 70 02/03/20 05:15 96.8 94 02/02/20 05:06 2.0 Laboratory Data CBC/BMP Laboratory Tests 02/03/20 07:24 Labs 24H Laboratory Tests 2 02/02/20 11:39: Bedside Glucose (Misc Panel) 237H 02/02/20 16:08: Bedside Glucose (Misc Panel) 346H 02/02/20 19:40: Bedside Glucose (Misc Panel) 270H 02/03/20 05:17: Bedside Glucose (Misc Panel) 165H 02/03/20 07:24: Immature Granulocyte % (Auto) 0.6, Neutrophils (%) (Auto) 58.0, Lymphocytes (%) (Auto) 24.8, Monocytes (%) (Auto) 9.8H, Eosinophils (%) (Auto) 5.7H, Basophils (%) (Auto) 1.1H, Neutrophils # (Auto) 4.6, Lymphocytes # (Auto) 2.0, Monocytes # (Auto) 0.8, Eosinophils # (Auto) 0.5, Basophils # (Auto) 0.1, Nucleated Red Blood Cells % (auto) 0.0, Anion Gap 6L, Glomerular Filtration Rate > 60.0, Calcium Level 8.6L, C-Reactive Protein, Quantitative 1.29H 02/03/20 11:16: Bedside Glucose (Misc Panel) 102 Current Medications Current Medications Current Medications Medications (Trade) Dose Ordered Sig/Lexi Route PRN Reason Start Time Stop Time Status Last Admin Dose Admin Acetaminophen (Tylenol Tab) 650 mg Q4HP PRN PO fever/MILD PAIN (PS 1-4) 01/21/20 11:30 02/01/20 20:24 Albuterol/ Ipratropium (Duoneb (Ipr 0.5mg/Alb 2.5mg)) 3 ml RTID NEB 01/21/20 14:00 02/02/20 16:00 Amiodarone HCl (Pacerone, Cordarone) 200 mg BID PO 01/22/20 09:00 02/03/20 09:34 Amlodipine Besylate (Norvasc) 10 mg DAILY PO 01/22/20 09:00 02/03/20 09:33 Ascorbic Acid (Vitamin C) 500 mg DAILY PO 01/22/20 09:00 02/03/20 09:34 Aspirin (Ecotrin) 81 mg DAILY PO 01/22/20 09:00 02/03/20 09:34 Atorvastatin Calcium (Lipitor) 80 mg QHS PO 01/22/20 21:00 02/02/20 20:33 Baclofen (Lioresal) 5 mg TID PO 01/21/20 16:00 02/03/20 10:55 Betamethasone Dipropionate (Diprosone) 1 dose DAILY TOP 02/02/20 09:00 02/03/20 09:41 Bisacodyl (Dulcolax Suppository) 10 mg DAILYPRN PRN [place] CONSTIPATION 01/21/20 11:30 Bisacodyl (Dulcolax Tab) 5 mg DAILYPRN PRN PO CONSTIPATION 01/21/20 11:30 Dextrose (Dextrose 50%) 25 ml ASDIRECTED PRN IV SEE LABEL COMMENTS 01/21/20 11:30 Docusate Sodium (Colace) 100 mg BID PO 01/21/20 21:00 01/23/20 16:15 DC Docusate Sodium (Colace) 100 mg TID PO 01/30/20 09:00 02/03/20 09:33 Duloxetine HCl (Cymbalta) 60 mg DAILY PO 01/22/20 09:00 02/03/20 09:34 Emollient Cream (Vanicream) 1 dose BID TOP 01/21/20 21:00 02/03/20 09:41 Fentanyl (Duragesic) 100 mcg Q72H TOP 01/24/20 09:00 02/02/20 08:28 Fluticasone Propionate (Flonase 0.05% Nasal [place]) 1 spray BID NARES 01/30/20 21:00 02/03/20 09:41 Gabapentin (Neurontin) 600 mg TID PO 01/21/20 16:00 02/03/20 09:34 Glucagon (Glucagon) 1 mg ASDIRECTED PRN SC SEE LABEL COMMENTS 01/21/20 11:30 Glucose (Glucose) 16 GM ASDIRECTED PRN PO SEE LABEL COMMENTS 01/21/20 11:30 Heparin Sodium (Heparin (Flush)) 200 units ASDIRECTED PRN IV SEE LABEL COMMENTS 01/21/20 17:30 01/31/20 13:20 Heparin Sodium (Heparin (Flush)) 200 units PICC IV 01/21/20 18:00 02/03/20 05:11 Heparin Sodium (Porcine) (Heparin) 5,000 units Q12H SC 01/21/20 21:00 02/03/20 09:39 Home Med (Med Rec Complete!) ASDIRECTED XX 01/21/20 15:00 01/21/20 14:51 DC Insulin Detemir (Levemir Insulin) 45 units BID SC 01/21/20 21:00 02/03/20 07:25 DC 02/02/20 20:34 Insulin Detemir (Levemir Insulin) 48 units BID SC 02/03/20 09:00 02/03/20 09:00 Insulin Human Lispro (HumaLOG INSULIN) SEE PROTOCOL TABLE AC SC 01/21/20 12:00 02/03/20 07:50 Insulin Human Lispro (HumaLOG INSULIN) SEE PROTOCOL TABLE QHS SC 01/21/20 21:00 02/02/20 20:34 Lactobacillus Acidophilus (Bacid) 1 ea TID PO 01/21/20 16:00 02/03/20 09:35 Latanoprost (Xalatan 0.005% Op Soln) 1 drop QHS OU 01/21/20 21:00 02/02/20 20:35 Lidocaine (Lidoderm Patch) 1 patch DAILY TD 01/31/20 09:00 02/03/20 09:36 Lisinopril (Prinivil) 2.5 mg DAILY PO 01/22/20 09:00 02/03/20 09:35 Metoprolol Succinate (TopROL XL) 50 mg DAILY PO 01/22/20 09:00 02/03/20 09:34 Miscellaneous (Unresolved Clarification Entry) SEE LABEL COMMENTS DAILY XX 01/25/20 09:00 01/26/20 11:03 DC Miscellaneous (Unresolved Clarification Entry) SEE LABEL COMMENTS DAILY XX 02/02/20 09:00 02/03/20 09:47 DC Multivitamins (Theragram-M) 1 tab DAILY PO 01/22/20 09:00 02/03/20 09:34 Nafcillin Sodium 2 gm/Dextrose 50 ml @ 50 mls/hr Q4H IV 01/21/20 17:00 02/12/20 21:00 02/03/20 09:39 Naloxone HCl (Narcan) 0.1 mg Q5MP PRN IV RESP. RATE < 10 01/21/20 11:30 Nicotine (Nicoderm Cq 14mg) 1 patch DAILY TD 01/21/20 09:00 Non-Formulary Medication ( See Comment Field Below ) REMOVE LIDODERM PATCH DAILY@21 XX 01/31/20 21:00 02/02/20 20:52 Non-Formulary Medication ( See Comment Field Below ) SEE COMMENT SECTION ASDIRECTED XX 01/24/20 09:00 01/24/20 08:25 Nystatin (Mycostatin Powder, Nystop) apply to groin BID TOP 01/23/20 09:00 02/03/20 09:42 Oxycodone HCl (Roxicodone, Oxyir) 10 mg Q4HP PRN PO SEVERE PAIN (PS 8-10) 01/21/20 11:30 02/03/20 09:35 Pantoprazole Sodium (Protonix) 40 mg DAILY PO 01/22/20 09:00 02/03/20 09:35 Ramelteon (Rozerem) 8 mg QHSP PRN PO insomnia 02/02/20 11:00 Saliva Substitute (Mouthkote) 1 sprays TID MT 01/21/20 16:00 02/03/20 09:43 Salmeterol Xinafoate (Serevent Diskus) 1 puff BID INH 01/21/20 21:00 02/03/20 07:53 Senna (Senokot) 1 tab QHS PO 01/21/20 21:00 01/30/20 09:35 DC 01/29/20 20:43 Senna (Senokot) 2 tab QHS PO 01/30/20 21:00 02/01/20 20:25 Sodium Chloride ([place] Nasal [place]) 2 spray TID NA 01/30/20 16:00 02/03/20 09:42 Sodium Chloride (Saline Lock Flush) 10 ml ASDIRECTED PRN IV SEE LABEL COMMENTS 01/21/20 17:30 01/31/20 13:19 Sodium Chloride (Saline Lock Flush) 10 ml PICC IV 01/21/20 18:00 02/03/20 05:11 Triamcinolone Acetonide (Kenalog 0.1% Ointment) rash on arms from tape DAILY EXT 01/21/20 09:00 02/03/20 09:43 Zinc Sulfate (Zinc Sulfate) 220 mg DAILY PO 01/22/20 09:00 02/03/20 09:31 ANNETTE PLAZA MD Feb 03, 2020 11:40
--- NOTE | 2020-02-03 11:43 | IPNPDOC ---
PM&R Progress Note DATE OF SERVICE: Feb 03, 2020 Online Program Coordinator Progress Note Subjective: Patient states he slept better last night because he timed his oxycodone to be taken right before bed. He reports his lower back feels itchy. REVIEW OF SYSTEMS: The following is a completed review of systems and has been reviewed. Review of systems otherwise unremarkable. PAIN: Patient self reports left hip pain EYES: No recent vision changes EARS, NOSE, & THROAT:No throat pain, or dysphagia, or rhinorrhea CARDIOVASCULAR: Denies chest pain or palpitations PULMONARY: Denies shortness of breath GASTROINTESTINAL: Denies constipation/diarrhea GENITOURINARY: denies dysuria MUSCULOSKELETAL:generalized weakness NEUROLOGICAL: +peripheral polyneuropathy HEMATOLOGICAL: denies easy bruising SKIN: right dorsal foot surgical wound, posterior left calf wound, right upper arm rash PSYCHIATRIC: Unremarkable All other review of systems found to be negative. PHYSICAL EXAMINATION: VITAL SIGNS: Please see below. GENERAL: Pleasant and cooperative. No acute distress. HEENT: PERRL. Extraocular movements intact. Clear conjunctiva CARDIOVASCULAR: Irregular rate and rhythm. No murmurs, rubs, or gallops LUNGS: Clear to auscultation bilaterally. No wheezes. No rhonchi ABDOMEN: Soft, nontender, nondistended. Positive bowel sounds. Normal active bowel sounds NEUROLOGICAL: Alert and oriented times three. Cranial nerves II through XII grossly intact. Sensation diminished to light touch bilat LE in stocking pattern EXTREMITIES: 5-\5 strength bilateral upper extremities. 4/5 right hip flexion, knee extension, 3/5 ankle DF, 0/5 EHL 1/5 left hip flexion, 3/5 knee extension 0/5 ankle DF/EHL SKIN: hyperkeratotic calves L>R, posterior left calf with vertical wound with healthy granulation tissue, no exudate -right foot with pins in place, no induration noted around the surgical site -right upper arm erythema in circumscribed square pattern (resolved) -LUE picc line site with mild erythema -low back with mild erythema ASSESSMENT:64-year-old M with past medical history of DM and PVD who presents status new onset right sided weakness. PLAN: 1.Rehab- PT/OT advance gait and ADL training, strengthen/stretch/maintain ROM all 4limbs- working on bed mobility and putting weight through left leg -IRRIGATOR HEAD for cognition eval 2. Neuro: patient with recent acute onset right sided hemiparesis, possibly due to TIA as MRI did not confirm ischemic infarct or posterior reversible encephalopathy syndrome- c/u secondary stroke management with statin, ASA, good BP and glycemic control -c/u Cymbalta which will help with motor recovery - peripheral polyneuropathy due to longstanding DM with gait impairment, optimize DM management 3. Cardiac: Afib cu Amiodarone and betablocker, Eliquis on hold due to intraabdominal hematoma -hx of CAD s/p stenting c/u ASA -chronic diastolic CHF grade 2, c/u daily weight, fluid restrict, monitor for fluid overload -HTN c/u lisinopril and amlodipine, medicine consulted to assist in overall management -HLD c/u statin 4. Resp: c/u duonebs, and Serevent, monitor for infection -CLAUDIA may use own cpap 5. Endo: DM with hyperglycemia and peripheral polyneuropathy- c/u Levemir, ISS 6. Pain: chronic low back pain with chronic opioid use, c/u fentanyl, oxycodone, gabapentin, Cymbalta, baclofen -naloxone ordered prn -c/u lidocaine patch to left hip 7. GI ppx: protonix 8. Hypokalemia- resolved 8. DVT ppx; heparin 9. ID: c/u Nafcillin 2g IV q4h x 6 weeks stop date 02-12-20 per ID 7recs appreciated-following CRP which is down to 1.29, no leukocytosis or fever -c/u triamcinolone for RUE contact dermatitis and vanicream -f/u ECHO in 2-4 weeks for known vegetations endocarditis -vitamin C and zinc added for wound healing 10. Ortho: s/p right foot fusion NWB- Dr. Romano following 11. Dispo: 02-06-20 to [facility] as unable to care for him at this time Allergies Coded Allergies: TAPE (Verified Allergy, Mild, RASH/BLISTERS, 08/15/19) Vital Signs Vital Signs Date Time Temp Pulse Resp B/P (MAP) Pulse Ox O2 Delivery O2 Flow Rate FiO2 02/03/20 10:05 18 Room Air 02/03/20 09:35 133/64 02/03/20 09:34 70 02/03/20 05:15 96.8 94 02/02/20 05:06 2.0 Laboratory Data CBC/BMP Laboratory Tests 02/03/20 07:24 Labs 24H Laboratory Tests 2 02/02/20 16:08: Bedside Glucose (Misc Panel) 346H 02/02/20 19:40: Bedside Glucose (Misc Panel) 270H 02/03/20 05:17: Bedside Glucose (Misc Panel) 165H 02/03/20 07:24: Immature Granulocyte % (Auto) 0.6, Neutrophils (%) (Auto) 58.0, Lymphocytes (%) (Auto) 24.8, Monocytes (%) (Auto) 9.8H, Eosinophils (%) (Auto) 5.7H, Basophils (%) (Auto) 1.1H, Neutrophils # (Auto) 4.6, Lymphocytes # (Auto) 2.0, Monocytes # (Auto) 0.8, Eosinophils # (Auto) 0.5, Basophils # (Auto) 0.1, Nucleated Red Blood Cells % (auto) 0.0, Anion Gap 6L, Glomerular Filtration Rate > 60.0, Calcium Level 8.6L, C-Reactive Protein, Quantitative 1.29H 02/03/20 11:16: Bedside Glucose (Misc Panel) 102 Current Medications Current Medications Current Medications Medications (Trade) Dose Ordered Sig/Lexi Route PRN Reason Start Time Stop Time Status Last Admin Dose Admin Acetaminophen (Tylenol Tab) 650 mg Q4HP PRN PO fever/MILD PAIN (PS 1-4) 01/21/20 11:30 02/01/20 20:24 Albuterol/ Ipratropium (Duoneb (Ipr 0.5mg/Alb 2.5mg)) 3 ml RTID NEB 01/21/20 14:00 02/02/20 16:00 Amiodarone HCl (Pacerone, Cordarone) 200 mg BID PO 01/22/20 09:00 02/03/20 09:34 Amlodipine Besylate (Norvasc) 10 mg DAILY PO 01/22/20 09:00 02/03/20 09:33 Ascorbic Acid (Vitamin C) 500 mg DAILY PO 01/22/20 09:00 02/03/20 09:34 Aspirin (Ecotrin) 81 mg DAILY PO 01/22/20 09:00 02/03/20 09:34 Atorvastatin Calcium (Lipitor) 80 mg QHS PO 01/22/20 21:00 02/02/20 20:33 Baclofen (Lioresal) 5 mg TID PO 01/21/20 16:00 02/03/20 10:55 Betamethasone Dipropionate (Diprosone) 1 dose DAILY TOP 02/02/20 09:00 02/03/20 09:41 Bisacodyl (Dulcolax Suppository) 10 mg DAILYPRN PRN ME CONSTIPATION 01/21/20 11:30 Bisacodyl (Dulcolax Tab) 5 mg DAILYPRN PRN PO CONSTIPATION 01/21/20 11:30 Dextrose (Dextrose 50%) 25 ml ASDIRECTED PRN IV SEE LABEL COMMENTS 01/21/20 11:30 Docusate Sodium (Colace) 100 mg BID PO 01/21/20 21:00 01/23/20 16:15 DC Docusate Sodium (Colace) 100 mg TID PO 01/30/20 09:00 02/03/20 09:33 Duloxetine HCl (Cymbalta) 60 mg DAILY PO 01/22/20 09:00 02/03/20 09:34 Emollient Cream (Vanicream) 1 dose BID TOP 01/21/20 21:00 02/03/20 09:41 Fentanyl (Duragesic) 100 mcg Q72H TOP 01/24/20 09:00 02/02/20 08:28 Fluticasone Propionate (Flonase 0.05% Nasal [place]) 1 spray BID NARES 01/30/20 21:00 02/03/20 09:41 Gabapentin (Neurontin) 600 mg TID PO 01/21/20 16:00 02/03/20 09:34 Glucagon (Glucagon) 1 mg ASDIRECTED PRN SC SEE LABEL COMMENTS 01/21/20 11:30 Glucose (Glucose) 16 GM ASDIRECTED PRN PO SEE LABEL COMMENTS 01/21/20 11:30 Heparin Sodium (Heparin (Flush)) 200 units ASDIRECTED PRN IV SEE LABEL COMMENTS 01/21/20 17:30 01/31/20 13:20 Heparin Sodium (Heparin (Flush)) 200 units PICC IV 01/21/20 18:00 02/03/20 05:11 Heparin Sodium (Porcine) (Heparin) 5,000 units Q12H SC 01/21/20 21:00 02/03/20 09:39 Home Med (Med Rec Complete!) ASDIRECTED XX 01/21/20 15:00 01/21/20 14:51 DC Insulin Detemir (Levemir Insulin) 45 units BID SC 01/21/20 21:00 02/03/20 07:25 DC 02/02/20 20:34 Insulin Detemir (Levemir Insulin) 48 units BID SC 02/03/20 09:00 02/03/20 09:00 Insulin Human Lispro (HumaLOG INSULIN) SEE PROTOCOL TABLE AC SC 01/21/20 12:00 02/03/20 07:50 Insulin Human Lispro (HumaLOG INSULIN) SEE PROTOCOL TABLE QHS SC 01/21/20 21:00 02/02/20 20:34 Lactobacillus Acidophilus (Bacid) 1 ea TID PO 01/21/20 16:00 02/03/20 09:35 Latanoprost (Xalatan 0.005% Op Soln) 1 drop QHS OU 01/21/20 21:00 02/02/20 20:35 Lidocaine (Lidoderm Patch) 1 patch DAILY TD 01/31/20 09:00 02/03/20 09:36 Lisinopril (Prinivil) 2.5 mg DAILY PO 01/22/20 09:00 02/03/20 09:35 Metoprolol Succinate (TopROL XL) 50 mg DAILY PO 01/22/20 09:00 02/03/20 09:34 Miscellaneous (Unresolved Clarification Entry) SEE LABEL COMMENTS DAILY XX 01/25/20 09:00 01/26/20 11:03 DC Miscellaneous (Unresolved Clarification Entry) SEE LABEL COMMENTS DAILY XX 02/02/20 09:00 02/03/20 09:47 DC Multivitamins (Theragram-M) 1 tab DAILY PO 01/22/20 09:00 02/03/20 09:34 Nafcillin Sodium 2 gm/Dextrose 50 ml @ 50 mls/hr Q4H IV 01/21/20 17:00 02/12/20 21:00 02/03/20 09:39 Naloxone HCl (Narcan) 0.1 mg Q5MP PRN IV RESP. RATE < 10 01/21/20 11:30 Nicotine (Nicoderm Cq 14mg) 1 patch DAILY TD 01/21/20 09:00 Non-Formulary Medication ( See Comment Field Below ) REMOVE LIDODERM PATCH DAILY@21 XX 01/31/20 21:00 02/02/20 20:52 Non-Formulary Medication ( See Comment Field Below ) SEE COMMENT SECTION ASDIRECTED XX 01/24/20 09:00 01/24/20 08:25 Nystatin (Mycostatin Powder, Nystop) apply to groin BID TOP 01/23/20 09:00 02/03/20 09:42 Oxycodone HCl (Roxicodone, Oxyir) 10 mg Q4HP PRN PO SEVERE PAIN (PS 8-10) 01/21/20 11:30 02/03/20 09:35 Pantoprazole Sodium (Protonix) 40 mg DAILY PO 01/22/20 09:00 02/03/20 09:35 Ramelteon (Rozerem) 8 mg QHSP PRN PO insomnia 02/02/20 11:00 Saliva Substitute (Mouthkote) 1 sprays TID MT 01/21/20 16:00 02/03/20 09:43 Salmeterol Xinafoate (Serevent Diskus) 1 puff BID INH 01/21/20 21:00 02/03/20 07:53 Senna (Senokot) 1 tab QHS PO 01/21/20 21:00 01/30/20 09:35 DC 01/29/20 20:43 Senna (Senokot) 2 tab QHS PO 01/30/20 21:00 02/01/20 20:25 Sodium Chloride ([place] Nasal [place]) 2 spray TID NA 01/30/20 16:00 02/03/20 09:42 Sodium Chloride (Saline Lock Flush) 10 ml ASDIRECTED PRN IV SEE LABEL COMMENTS 01/21/20 17:30 01/31/20 13:19 Sodium Chloride (Saline Lock Flush) 10 ml PICC IV 01/21/20 18:00 02/03/20 05:11 Triamcinolone Acetonide (Kenalog 0.1% Ointment) rash on arms from tape DAILY EXT 01/21/20 09:00 02/03/20 09:43 Zinc Sulfate (Zinc Sulfate) 220 mg DAILY PO 01/22/20 09:00 02/03/20 09:31 ANNETTE PLAZA MD Feb 03, 2020 11:43
[2020-02-03 14:00] VITALS: BP 113/71
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
[2020-02-03 20:20] VITALS: BP 138/77
[2020-02-03] MEDS: SODIUM CHLORIDE 0.9% INJ 10 ML SYR IV PRN ×2 (21:58→23:25)
[2020-02-03] MEDS: ATORVASTATIN 20 MG TAB PO SCH (22:00)
[2020-02-03] MEDS: SENNA 8.6 MG TAB (SENOKOT) PO SCH ×2 (22:00→22:09)
[2020-02-03] MEDS: LATANOPROST 0.005% OPHTH SOLN 2.5 ML OU SCH (22:05)
[2020-02-03] MEDS: **NOTE PATIENT COMMENT** MISC XX SCH (22:08)
[2020-02-04] MEDS: NAFCILLIN SOD 2 GM in D5W MINI-BAG PLUS 50 ML IV SCH ×6 (01:34→22:07)
[2020-02-04] MEDS: SODIUM CHLORIDE 0.9% INJ 10 ML SYR IV PRN ×3 (01:35→06:45)
[2020-02-04] MEDS: SODIUM CHLORIDE 0.9% INJ 10 ML SYR IV SCH ×2 (05:33→17:02)
[2020-02-04 05:49] VITALS: BP 158/75
[2020-02-04] MEDS: IPRATROPIUM 0.5MG/ALBUTEROL 2.5MG INH SOL UD 3ML (DUONEB) NEB SCH ×3 (07:12→20:00)
[2020-02-04] MEDS: SALMETEROL DISKUS 50MCG INHALER (SEREVENT) INH SCH ×2 (07:12→19:36)
[2020-02-04] MEDS: LEVEMIR (INSULIN DETEMIR) 1 UNITS/0.01ML SC SCH ×2 (08:22→22:04)
[2020-02-04] MEDS: NICOTINE 14 MG/24 HR TRANSDERMAL TD SCH (08:23)
[2020-02-04] MEDS: HEPARIN SOD (PORCINE) 5000UNITS/ML 1ML VIAL/SYRINGE SC SCH ×2 (08:24→22:04)
[2020-02-04] MEDS: LIDOCAINE 5% (LIDODERM) PATCH TD SCH (08:24)
[2020-02-04] MEDS: HumaLOG INSULIN (NovoLOG) PER UNIT SC SCH ×4 (08:25→22:05)
[2020-02-04] MEDS: ASCORBIC ACID 500 MG TAB PO SCH (08:25)
[2020-02-04] MEDS: LACTOBACILLUS ACIDOPHILUS CAP (BACID) PO SCH ×3 (08:25→22:05)
[2020-02-04] MEDS: PANTOPRAZOLE 40MG TAB (PROTONIX) PO SCH (08:25)
[2020-02-04] MEDS: DULoxetine 30 MG CAP (CYMBALTA) PO SCH (08:25)
[2020-02-04] MEDS: GABAPENTIN 300 MG CAP PO SCH ×3 (08:25→22:05)
[2020-02-04] MEDS: ASPIRIN 81 MG ENTERIC TAB PO SCH (08:25)
[2020-02-04] MEDS: BACLOFEN 5MG PER 1/2 TABLET PO SCH ×3 (08:26→22:06)
[2020-02-04] MEDS: ZINC SULFATE 220 MG CAP PO SCH (08:26)
[2020-02-04] MEDS: MULTIVITAMINS/MINERALS THERAP 1 TAB PO SCH (08:26)
[2020-02-04] MEDS: METOPROLOL SUCC (TopROL XL) 50MG **XL** TAB PO SCH (08:29)
[2020-02-04] MEDS: LISINOPRIL *2.5 MG* TAB PO SCH (08:29)
[2020-02-04] MEDS: AMIODARONE 200 MG TAB (PACERONE) PO SCH ×2 (08:30→22:07)
[2020-02-04] MEDS: amLODIPine 10 MG TAB PO SCH (08:30)
[2020-02-04] MEDS: DOCUSATE SODIUM 100 MG CAP PO SCH ×3 (08:31→22:06)
[2020-02-04] MEDS: SALIVA SUBSTITUTE(MOUTHKOTE) BTL MT SCH ×3 (08:31→22:06)
[2020-02-04] MEDS: REMEDY PHYTOPLEX Z-GUARD PASTE 113GM TUBE (FROM STOREROOM PRODUCT) TOP SCH ×3 (08:33→22:02)
[2020-02-04] MEDS: VANICREAM MOISTURIZING SKIN CREAM 113GM TUBE TOP SCH ×2 (08:33→22:02)
[2020-02-04] MEDS: SODIUM CHLORIDE NASAL 0.65% SPRAY BTL (OCEAN) SCH ×3 (08:34→22:07)
[2020-02-04] MEDS: TRIAMCINOLONE ACET 0.1% OINTMENT 15 GM EXT SCH (08:34)
[2020-02-04] MEDS: FLUTICASONE PROP 0.05% NASAL SPRAY 16 GM (FLONASE) NARES SCH ×2 (08:34→22:07)
[2020-02-04] MEDS: NYSTATIN 100,000 UNITS/GM TOPICAL PWD 15 GM TOP SCH ×2 (08:34→22:04)
[2020-02-04] MEDS: oxyCODONE 5MG TAB PO PRN ×3 (11:14→23:31)
[2020-02-04 14:00] VITALS: BP 136/66
[2020-02-04 20:30] VITALS: BP 141/80
[2020-02-04] MEDS: **NOTE PATIENT COMMENT** MISC XX SCH (22:03)
[2020-02-04] MEDS: SENNA 8.6 MG TAB (SENOKOT) PO SCH (22:06)
[2020-02-04] MEDS: ATORVASTATIN 20 MG TAB PO SCH (22:06)
[2020-02-04] MEDS: LATANOPROST 0.005% OPHTH SOLN 2.5 ML OU SCH (22:09)
--- NOTE | 2020-02-04 22:41 | IPN ---
DATE: 02/04/2020 Aurelio is doing well. He is being transferred to [facility] for rehabilitation on . He has no fever or chills. He still has drainage from his left arm where the peripherally inserted central catheter (PICC) line is. He has drainage from his left calf where he has an ulceration with some bloody discharge on the pillow. His dressing on his right foot is changed every other day. Labs from 02/03/2020: White count 7.9, hemoglobin 11.1, hematocrit 38.5, platelets 178, 58% neutrophils, 25% lymphocytes, 10% monocytes. Sodium 141, potassium 4, chloride 101, bicarbonate 34, BUN 20, creatinine 1.07, glucose 129, calcium 8.6, CRP 1.29. Left arm Gram stain has a few epithelial cells. No organisms seen. Culture is pending. On physical exam, temperature is 97.9, pulse 89, respirations 16, blood pressure 136/66, oxygen saturation (O2 sat) 98% on room air. Heart: Normal S1, S2, distant. No murmurs appreciated. Lungs are clear. No wheezes, rales or rhonchi. Abdomen: Soft, nontender. Extremities: No edema. Left calf has an ulceration with good granulation tissue measuring about 10 x 4 cm width right above the Achilles tendon with some bloody discharge on the pillow. There is no evidence of infection. Right foot with an external fixator was not examined today. Diffuse erythema where the Tegaderm dressing was consistent with contact dermatitis. There is no tenderness. IMPRESSION: 1. Aortic valve endocarditis, on IV nafcillin for a total of 6 weeks. End of therapy will be February 12, 2020 with complication of transient ischemic attack (TIA) that has resolved. 2. Acute osteomyelitis of the right foot with methicillin-sensitive Staphylococcus aureus (MSSA), status post debridement of abscess and mid foot joint resection with an external fixator, on IV nafcillin as well. Culture also positive for MSSA. The patient will continue with nafcillin until February 12, 2020 and then be switched to Keflex 500 mg by mouth four times a day for another month. 3. Contact dermatitis from Tegaderm dressing of the left biceps and right biceps. The patient's PICC line was removed. Triamcinolone cream was applied. The patient is at high risk of infection from his PICC line with this much excoriation around his skin. PLAN: Discontinue use of PICC line, use peripheral IVs for the next week. Patient end of therapy will be February 11. He could have two peripheral IVs instead of a central catheter. Please continue to monitor labs with a CBC, CRP, ESR weekly on IV antibiotics, and then every 2 weeks on oral antibiotics. Switch from IV nafcillin to Keflex 500 mg by mouth four times a day starting February 13, 2020. The patient will need to be seen by infectious disease in 2 weeks after discharge. This could be done as a tele-visit from [facility] to my office. Please arrange that with their nursing staff. Continue triamcinolone or betamethasone cream for contact dermatitis.
[2020-02-05] MEDS: NAFCILLIN SOD 2 GM in D5W MINI-BAG PLUS 50 ML IV SCH ×6 (01:50→20:18)
[2020-02-05 05:52] VITALS: BP 138/67
[2020-02-05] MEDS ORDERED: SLF 3 ML SYR IV PRN (06:00)
[2020-02-05] MEDS: SLF 3 ML SYR IV SCH ×3 (06:48→20:19)
[2020-02-05 07:25] LABS: BASO # 0.1 10^3/uL (0.0-0.2); BASO % 1.2 % (0.0-1.0); EOS # 0.4 10^3/uL (0.0-0.5); EOS % 6.8 % (0.0-3.0); HEMATOCRIT 35.2 % (42.0-52.0); HEMOGLOBIN 10.5 g/dl (13.5-17.5); LYMPH # 1.3 10^3/uL (1.5-5.0); LYMPH % 22.3 % (24.0-44.0); MEAN CORPUSCULAR HEMOGLOBIN 26.1 pg (27.0-33.0); MEAN CORPUSCULAR HGB CONC 29.8 g/dl (32.0-36.5); MEAN CORPUSCULAR VOLUME 87.3 fl (80.0-96.0); MONO # 0.5 10^3/uL (0.0-0.8); MONO % 8.8 % (0.0-5.0); NEUTROPHILS # 3.6 10^3/uL (1.5-8.5); NEUTROPHILS % 60.2 % (36.0-66.0); PLATELET COUNT, AUTOMATED 150 10^3/uL (150-450); RED BLOOD COUNT 4.03 10^6/uL (4.30-6.10); WHITE BLOOD COUNT 5.9 10^3/uL (4.0-10.0)
[2020-02-05] MEDS: SALMETEROL DISKUS 50MCG INHALER (SEREVENT) INH SCH ×2 (07:31→19:28)
[2020-02-05 07:51] LABS: BLOOD UREA NITROGEN 22 MG/DL (7-18); C REACTIVE PROTEIN QUANTITATIV 3.72 MG/DL (0.00-0.30); CALCIUM LEVEL 8.6 MG/DL (8.8-10.2); CARBON DIOXIDE LEVEL 33 MEQ/L (21-32); CHLORIDE LEVEL 102 MEQ/L (98-107); CREATININE FOR GFR 0.95 MG/DL (0.70-1.30); GLOMERULAR FILTRATION RATE > 60.0 (>49); GLUCOSE, FASTING 148 MG/DL (70-100); POTASSIUM SERUM 4.1 MEQ/L (3.5-5.1); SODIUM LEVEL 137 MEQ/L (136-145)
[2020-02-05 07:56] LABS: ERYTHROCYTE SEDIMENTATION RATE 58 mm/hr (0-20)
[2020-02-05] MEDS: IPRATROPIUM 0.5MG/ALBUTEROL 2.5MG INH SOL UD 3ML (DUONEB) NEB SCH ×3 (08:00→19:27)
[2020-02-05] MEDS: LACTOBACILLUS ACIDOPHILUS CAP (BACID) PO SCH ×3 (08:49→20:19)
[2020-02-05] MEDS: LEVEMIR (INSULIN DETEMIR) 1 UNITS/0.01ML SC SCH ×2 (08:49→20:23)
[2020-02-05] MEDS: HumaLOG INSULIN (NovoLOG) PER UNIT SC SCH ×4 (08:49→20:23)
[2020-02-05] MEDS: METOPROLOL SUCC (TopROL XL) 50MG **XL** TAB PO SCH (08:50)
[2020-02-05] MEDS: ASPIRIN 81 MG ENTERIC TAB PO SCH (08:50)
[2020-02-05] MEDS: GABAPENTIN 300 MG CAP PO SCH ×3 (08:50→20:33)
[2020-02-05] MEDS: DULoxetine 30 MG CAP (CYMBALTA) PO SCH (08:50)
[2020-02-05] MEDS: PANTOPRAZOLE 40MG TAB (PROTONIX) PO SCH (08:50)
[2020-02-05] MEDS: AMIODARONE 200 MG TAB (PACERONE) PO SCH ×2 (08:50→20:19)
[2020-02-05] MEDS: MULTIVITAMINS/MINERALS THERAP 1 TAB PO SCH (08:50)
[2020-02-05] MEDS: LISINOPRIL *2.5 MG* TAB PO SCH (08:50)
[2020-02-05] MEDS: ASCORBIC ACID 500 MG TAB PO SCH (08:50)
[2020-02-05] MEDS: HEPARIN SOD (PORCINE) 5000UNITS/ML 1ML VIAL/SYRINGE SC SCH ×2 (08:51→20:24)
[2020-02-05] MEDS: fentaNYL 100 MCG/HR PATCH TOP SCH (08:52)
[2020-02-05] MEDS: REMEDY PHYTOPLEX Z-GUARD PASTE 113GM TUBE (FROM STOREROOM PRODUCT) TOP SCH ×3 (08:52→20:20)
[2020-02-05] MEDS: VANICREAM MOISTURIZING SKIN CREAM 113GM TUBE TOP SCH ×2 (08:52→20:20)
[2020-02-05] MEDS: NYSTATIN 100,000 UNITS/GM TOPICAL PWD 15 GM TOP SCH ×2 (08:52→20:20)
[2020-02-05] MEDS: SODIUM CHLORIDE NASAL 0.65% SPRAY BTL (OCEAN) SCH ×3 (08:53→20:21)
[2020-02-05] MEDS: FLUTICASONE PROP 0.05% NASAL SPRAY 16 GM (FLONASE) NARES SCH ×2 (08:53→20:21)
[2020-02-05] MEDS: LIDOCAINE 5% (LIDODERM) PATCH TD SCH (08:53)
[2020-02-05] MEDS: NICOTINE 14 MG/24 HR TRANSDERMAL TD SCH (08:53)
[2020-02-05] MEDS: amLODIPine 10 MG TAB PO SCH (08:54)
[2020-02-05] MEDS: DOCUSATE SODIUM 100 MG CAP PO SCH ×3 (08:54→20:24)
[2020-02-05] MEDS: SALIVA SUBSTITUTE(MOUTHKOTE) BTL MT SCH ×3 (08:54→20:21)
[2020-02-05] MEDS: TRIAMCINOLONE ACET 0.1% OINTMENT 15 GM EXT SCH (08:54)
[2020-02-05] MEDS: oxyCODONE 5MG TAB PO PRN ×3 (09:09→19:26)
[2020-02-05] MEDS: ZINC SULFATE 220 MG CAP PO SCH (10:58)
[2020-02-05] MEDS: BACLOFEN 5MG PER 1/2 TABLET PO SCH ×3 (10:58→20:19)
[2020-02-05] MEDS ORDERED: BISA10SU PR (11:54)
[2020-02-05] MEDS ORDERED: RISATAB3 PO (11:54)
[2020-02-05] MEDS ORDERED: BACL10TA2 PO (11:54)
[2020-02-05] MEDS ORDERED: SALMDISK INH (11:54)
[2020-02-05] MEDS ORDERED: HEPA500011 SC (11:54)
[2020-02-05] MEDS ORDERED: OXYC-517 PO (11:54)
[2020-02-05] MEDS ORDERED: GABA-843 PO (11:54)
[2020-02-05] MEDS ORDERED: ASCO50TA PO (11:54)
[2020-02-05] MEDS ORDERED: LISI2.5T2 PO (11:54)
[2020-02-05] MEDS ORDERED: NYST10006 TOP (11:54)
[2020-02-05] MEDS ORDERED: VANI1CRE5 TOP (11:54)
[2020-02-05] MEDS ORDERED: FENT10PA TOP (11:54)
[2020-02-05] MEDS ORDERED: INSUHUMDS SC ×2 (11:54)
[2020-02-05] MEDS ORDERED: ASPI81TAEC PO (11:54)
[2020-02-05] MEDS ORDERED: IPRA0.00 NEB (11:54)
[2020-02-05] MEDS ORDERED: INSUDET SC (11:54)
[2020-02-05] MEDS ORDERED: NALO0.4I3 IV (11:54)
[2020-02-05] MEDS ORDERED: FLUTISP NARES (11:54)
[2020-02-05] MEDS ORDERED: MOUKOT60 MT (11:54)
[2020-02-05] MEDS ORDERED: AMIO200T3 PO (11:54)
[2020-02-05] MEDS ORDERED: METO1TAB7 PO (11:54)
[2020-02-05] MEDS ORDERED: NICO14PA TD (11:54)
[2020-02-05] MEDS ORDERED: LIDO5TD TD (11:54)
[2020-02-05] MEDS ORDERED: ATOR1TAB21 PO (11:54)
[2020-02-05] MEDS ORDERED: ACET1TAB55 PO (11:54)
[2020-02-05] MEDS ORDERED: CYMB1CAP5 PO (11:54)
[2020-02-05] MEDS ORDERED: DOCU100C16 PO (11:54)
[2020-02-05] MEDS ORDERED: AMLO1TAB25 PO (11:54)
[2020-02-05] MEDS ORDERED: VITMTA PO (11:54)
[2020-02-05] MEDS ORDERED: PANT40TA29 PO (11:54)
[2020-02-05] MEDS ORDERED: Latanoprost 0.005% Op Soln OU (11:54)
[2020-02-05] MEDS ORDERED: SENN18TA PO (11:55)
[2020-02-05] MEDS ORDERED: Zinc Oxide/Petrolatum,White TOP (11:55)
[2020-02-05] MEDS ORDERED: TRIA1OI EXT (11:55)
[2020-02-05] MEDS ORDERED: Sodium Chloride Nasal Spray (11:55)
[2020-02-05] MEDS ORDERED: ZINC220CA PO (11:55)
--- NOTE | 2020-02-05 12:40 | IPN ---
DATE: 02/05/2020 Mr. Alex has been seen and examined. Denies any new complaints in his foot. Vitals are reviewed. He has been afebrile. Labs are reviewed. White blood cell count is 5.9. ESR is 58. CRP 3.72. On lower extremity examination, external fixator pins remain stable. There is decrease in the size of the wound. Wound base is generally granular. ASSESSMENT: 64-year-old diabetic male with Charcot foot status post mid foot fusion. PLAN: Plan is to keep the external fixator on eight more weeks if possible. He is to remain non-weightbearing, continue current wound care dressings. He should have followup in my office in about 1 month.
[2020-02-05 14:00] VITALS: BP 146/84
--- NOTE | 2020-02-05 15:16 | REP ---
Clinical: Status post fixation. Technique: AP, lateral, oblique views of the right foot. Findings: Midfoot fractures and underline arthritic changes are identified consistent with the given history of neuropathic osteoarthropathy. Electronically Signed by Raghav Albrecht MD 02/05/2020 03:07 P
[2020-02-05 20:00] VITALS: BP 147/82
[2020-02-05] MEDS: **NOTE PATIENT COMMENT** MISC XX SCH (20:19)
[2020-02-05] MEDS: ATORVASTATIN 20 MG TAB PO SCH (20:19)
[2020-02-05] MEDS: LATANOPROST 0.005% OPHTH SOLN 2.5 ML OU SCH (20:20)
[2020-02-05] MEDS: SENNA 8.6 MG TAB (SENOKOT) PO SCH (20:25)
[2020-02-06] MEDS: NAFCILLIN SOD 2 GM in D5W MINI-BAG PLUS 50 ML IV SCH ×3 (01:09→08:43)
[2020-02-06] MEDS: SLF 3 ML SYR IV SCH (05:09)
[2020-02-06 06:00] VITALS: BP 140/78
[2020-02-06] MEDS: DOCUSATE SODIUM 100 MG CAP PO SCH (07:13)
[2020-02-06] MEDS: IPRATROPIUM 0.5MG/ALBUTEROL 2.5MG INH SOL UD 3ML (DUONEB) NEB SCH (08:00)
[2020-02-06] MEDS: LEVEMIR (INSULIN DETEMIR) 1 UNITS/0.01ML SC SCH (08:42)
[2020-02-06] MEDS: ZINC SULFATE 220 MG CAP PO SCH (08:43)
[2020-02-06] MEDS: HumaLOG INSULIN (NovoLOG) PER UNIT SC SCH (08:43)
[2020-02-06] MEDS: LISINOPRIL *2.5 MG* TAB PO SCH (08:43)
[2020-02-06 08:44] VITALS: BP 140/78
[2020-02-06] MEDS: METOPROLOL SUCC (TopROL XL) 50MG **XL** TAB PO SCH (08:44)
[2020-02-06] MEDS: amLODIPine 10 MG TAB PO SCH (08:44)
[2020-02-06] MEDS: ASCORBIC ACID 500 MG TAB PO SCH (08:44)
[2020-02-06] MEDS: GABAPENTIN 300 MG CAP PO SCH (08:44)
[2020-02-06] MEDS: AMIODARONE 200 MG TAB (PACERONE) PO SCH (08:44)
[2020-02-06] MEDS: MULTIVITAMINS/MINERALS THERAP 1 TAB PO SCH (08:44)
[2020-02-06] MEDS: PANTOPRAZOLE 40MG TAB (PROTONIX) PO SCH (08:44)
[2020-02-06] MEDS: DULoxetine 30 MG CAP (CYMBALTA) PO SCH (08:44)
[2020-02-06] MEDS: ASPIRIN 81 MG ENTERIC TAB PO SCH (08:44)
[2020-02-06] MEDS: SODIUM CHLORIDE NASAL 0.65% SPRAY BTL (OCEAN) SCH (08:45)
[2020-02-06] MEDS: BACLOFEN 5MG PER 1/2 TABLET PO SCH (08:45)
[2020-02-06] MEDS: LIDOCAINE 5% (LIDODERM) PATCH TD SCH (08:45)
[2020-02-06] MEDS: FLUTICASONE PROP 0.05% NASAL SPRAY 16 GM (FLONASE) NARES SCH (08:45)
[2020-02-06] MEDS: REMEDY PHYTOPLEX Z-GUARD PASTE 113GM TUBE (FROM STOREROOM PRODUCT) TOP SCH (08:46)
[2020-02-06] MEDS: SALIVA SUBSTITUTE(MOUTHKOTE) BTL MT SCH (08:46)
[2020-02-06] MEDS: NYSTATIN 100,000 UNITS/GM TOPICAL PWD 15 GM TOP SCH (08:46)
[2020-02-06] MEDS: NICOTINE 14 MG/24 HR TRANSDERMAL TD SCH (08:46)
[2020-02-06] MEDS: TRIAMCINOLONE ACET 0.1% OINTMENT 15 GM EXT SCH (08:47)
[2020-02-06] MEDS: LACTOBACILLUS ACIDOPHILUS CAP (BACID) PO SCH (08:53)
[2020-02-06] MEDS: VANICREAM MOISTURIZING SKIN CREAM 113GM TUBE TOP SCH (08:54)
[2020-02-06] MEDS: HEPARIN SOD (PORCINE) 5000UNITS/ML 1ML VIAL/SYRINGE SC SCH (08:54)
[2020-02-06] MEDS: SALMETEROL DISKUS 50MCG INHALER (SEREVENT) INH SCH (11:02)
--- NOTE | 2020-03-04 14:30 | IPNPDOC ---
PM&R Progress Note DATE OF SERVICE: Feb 04, 2020 [employer] Progress Note Subjective: Patient stating he feels well overall and is pleased that his left leg is loosening up. REVIEW OF SYSTEMS: The following is a completed review of systems and has been reviewed. Review of systems otherwise unremarkable. PAIN: Patient self reports left hip pain EYES: No recent vision changes EARS, NOSE, & THROAT:No throat pain, or dysphagia, or rhinorrhea CARDIOVASCULAR: Denies chest pain or palpitations PULMONARY: Denies shortness of breath GASTROINTESTINAL: Denies constipation/diarrhea GENITOURINARY: denies dysuria MUSCULOSKELETAL:generalized weakness NEUROLOGICAL: +peripheral polyneuropathy HEMATOLOGICAL: denies easy bruising SKIN: right dorsal foot surgical wound, posterior left calf wound, right upper arm rash PSYCHIATRIC: Unremarkable All other review of systems found to be negative. PHYSICAL EXAMINATION: VITAL SIGNS: Please see below. GENERAL: Pleasant and cooperative. No acute distress. HEENT: PERRL. Extraocular movements intact. Clear conjunctiva CARDIOVASCULAR: Irregular rate and rhythm. No murmurs, rubs, or gallops LUNGS: Clear to auscultation bilaterally. No wheezes. No rhonchi ABDOMEN: Soft, nontender, nondistended. Positive bowel sounds. Normal active bowel sounds NEUROLOGICAL: Alert and oriented times three. Cranial nerves II through XII grossly intact. Sensation diminished to light touch bilat LE in stocking pattern EXTREMITIES: 5-\5 strength bilateral upper extremities. 4/5 right hip flexion, knee extension, 3/5 ankle DF, 0/5 EHL 1/5 left hip flexion, 3/5 knee extension 0/5 ankle DF/EHL SKIN: hyperkeratotic calves L>R, posterior left calf with vertical wound with healthy granulation tissue, no exudate -right foot with pins in place, no induration noted around the surgical site -right upper arm erythema in circumscribed square pattern (resolved) -LUE picc line site with mild erythema -low back with mild erythema ASSESSMENT:64-year-old M with past medical history of DM and PVD who presents status new onset right sided weakness. PLAN: 1.Rehab- PT/OT advance gait and ADL training, strengthen/stretch/maintain ROM all 4limbs- working on bed mobility and putting weight through left leg -RV TECHNICIAN for cognition eval 2. Neuro: patient with recent acute onset right sided hemiparesis, possibly due to TIA as MRI did not confirm ischemic infarct or posterior reversible encephalopathy syndrome- c/u secondary stroke management with statin, ASA, good BP and glycemic control -c/u Cymbalta which will help with motor recovery - peripheral polyneuropathy due to longstanding DM with gait impairment, optimize DM management 3. Cardiac: Afib cu Amiodarone and betablocker, Eliquis on hold due to intraabdominal hematoma -hx of CAD s/p stenting c/u ASA -chronic diastolic CHF grade 2, c/u daily weight, fluid restrict, monitor for fluid overload -HTN c/u lisinopril and amlodipine, medicine consulted to assist in overall management -HLD c/u statin 4. Resp: c/u duonebs, and Serevent, monitor for infection -CLAUDIA may use own cpap 5. Endo: DM with hyperglycemia and peripheral polyneuropathy- c/u Levemir, ISS 6. Pain: chronic low back pain with chronic opioid use, c/u fentanyl, oxycodone, gabapentin, Cymbalta, baclofen -naloxone ordered prn -c/u lidocaine patch to left hip 7. GI ppx: protonix 8. Hypokalemia- resolved 8. DVT ppx; heparin 9. ID: c/u Nafcillin 2g IV q4h x 6 weeks stop date 02-12-20 per ID [id number] appreciated-following CRP which is down to 1.29, no leukocytosis or fever -c/u triamcinolone for RUE contact dermatitis and vanicream -f/u ECHO in 2-4 weeks for known vegetations endocarditis -vitamin C and zinc added for wound healing 10. Ortho: s/p right foot fusion NWB- Dr. Romano following 11. Dispo: 02-06-20 to [facility] as unable to care for him at this time Allergies Coded Allergies: TAPE (Verified Allergy, Mild, RASH/BLISTERS, 08/15/19) Current Medications Current Medications Current Medications Medications (Trade) Dose Ordered Sig/Lexi Route PRN Reason Start Time Stop Time Status Last Admin Dose Admin Acetaminophen (Tylenol Tab) 650 mg Q4HP PRN PO fever/MILD PAIN (PS 1-4) 01/21/20 11:30 02/29/20 13:21 DC 02/01/20 20:24 Albuterol/ Ipratropium (Duoneb (Ipr 0.5mg/Alb 2.5mg)) 3 ml RTID NEB 01/21/20 14:00 02/29/20 13:21 DC 02/05/20 19:27 Amiodarone HCl (Pacerone, Cordarone) 200 mg BID PO 01/22/20 09:00 02/29/20 13:22 DC 02/06/20 08:44 Amlodipine Besylate (Norvasc) 10 mg DAILY PO 01/22/20 09:00 02/29/20 13:22 DC 02/06/20 08:44 Ascorbic Acid (Vitamin C) 500 mg DAILY PO 01/22/20 09:00 02/29/20 13:22 DC 02/06/20 08:44 Aspirin (Ecotrin) 81 mg DAILY PO 01/22/20 09:00 02/29/20 13:22 DC 02/06/20 08:44 Atorvastatin Calcium (Lipitor) 80 mg QHS PO 01/22/20 21:00 02/29/20 13:22 DC 02/05/20 20:19 Baclofen (Lioresal) 5 mg TID PO 01/21/20 16:00 02/29/20 13:21 DC 02/06/20 08:45 Betamethasone Dipropionate (Diprosone) 1 dose DAILY TOP 02/02/20 09:00 02/03/20 20:50 DC 02/03/20 09:41 Bisacodyl (Dulcolax Suppository) 10 mg DAILYPRN PRN [place] CONSTIPATION 01/21/20 11:30 02/29/20 13:21 DC Bisacodyl (Dulcolax Tab) 5 mg DAILYPRN PRN PO CONSTIPATION 01/21/20 11:30 02/29/20 13:21 DC Dextrose (Dextrose 50%) 25 ml ASDIRECTED PRN IV SEE LABEL COMMENTS 01/21/20 11:30 02/29/20 13:21 DC Docusate Sodium (Colace) 100 mg BID PO 01/21/20 21:00 01/23/20 16:15 DC Docusate Sodium (Colace) 100 mg TID PO 01/30/20 09:00 02/29/20 13:26 DC 02/03/20 09:33 Duloxetine HCl (Cymbalta) 60 mg DAILY PO 01/22/20 09:00 02/29/20 13:22 DC 02/06/20 08:44 Emollient Cream (Vanicream) 1 dose BID TOP 01/21/20 21:00 02/29/20 13:21 DC 02/06/20 08:54 Fentanyl (Duragesic) 100 mcg Q72H TOP 01/24/20 09:00 02/29/20 13:16 DC 02/05/20 08:52 Fluticasone Propionate (Flonase 0.05% Nasal [place]) 1 spray BID NARES 01/30/20 21:00 02/29/20 20:59 DC 02/03/20 09:41 Gabapentin (Neurontin) 600 mg TID PO 01/21/20 16:00 02/29/20 13:21 DC 02/06/20 08:44 Glucagon (Glucagon) 1 mg ASDIRECTED PRN SC SEE LABEL COMMENTS 01/21/20 11:30 02/29/20 13:21 DC Glucose (Glucose) 16 GM ASDIRECTED PRN PO SEE LABEL COMMENTS 01/21/20 11:30 02/29/20 13:21 DC Heparin Sodium (Heparin (Flush)) 200 units ASDIRECTED PRN IV SEE LABEL COMMENTS 01/21/20 17:30 02/04/20 22:47 DC 02/04/20 02:37 Heparin Sodium (Heparin (Flush)) 200 units PICC IV 01/21/20 18:00 02/04/20 22:47 DC 02/04/20 17:01 Heparin Sodium (Porcine) (Heparin) 5,000 units Q12H SC 01/21/20 21:00 02/29/20 13:16 DC 02/06/20 08:54 Home Med (Med Rec Complete!) ASDIRECTED XX 01/21/20 15:00 01/21/20 14:51 DC Insulin Detemir (Levemir Insulin) 45 units BID SC 01/21/20 21:00 02/03/20 07:25 DC 02/02/20 20:34 Insulin Detemir (Levemir Insulin) 48 units BID SC 02/03/20 09:00 03/03/20 07:40 DC 02/06/20 08:42 Insulin Human Lispro (HumaLOG INSULIN) SEE PROTOCOL TABLE AC SC 01/21/20 12:00 02/29/20 13:21 DC 02/06/20 12:21 Insulin Human Lispro (HumaLOG INSULIN) SEE PROTOCOL TABLE QHS SC 01/21/20 21:00 02/29/20 13:21 DC 02/02/20 20:34 Lactobacillus Acidophilus (Bacid) 1 ea TID PO 01/21/20 16:00 02/29/20 13:21 DC 02/06/20 08:53 Latanoprost (Xalatan 0.005% Op Soln) 1 drop QHS OU 01/21/20 21:00 02/29/20 13:21 DC 02/05/20 20:20 Lidocaine (Lidoderm Patch) 1 patch DAILY TD 01/31/20 09:00 03/01/20 09:00 DC 02/06/20 08:45 Lisinopril (Prinivil) 2.5 mg DAILY PO 01/22/20 09:00 02/29/20 13:22 DC 02/06/20 08:43 Metoprolol Succinate (TopROL XL) 50 mg DAILY PO 01/22/20 09:00 02/29/20 13:22 DC 02/06/20 08:44 Miscellaneous (Unresolved Clarification Entry) SEE LABEL COMMENTS DAILY XX 01/25/20 09:00 01/26/20 11:03 DC Miscellaneous (Unresolved Clarification Entry) SEE LABEL COMMENTS DAILY XX 02/02/20 09:00 02/03/20 09:47 DC Multivitamins (Theragram-M) 1 tab DAILY PO 01/22/20 09:00 02/29/20 13:22 DC 02/06/20 08:44 Nafcillin Sodium 2 gm/Dextrose 50 ml @ 50 mls/hr Q4H IV 01/21/20 17:00 02/29/20 13:15 DC 02/06/20 12:21 Naloxone HCl (Narcan) 0.1 mg Q5MP PRN IV RESP. RATE < 10 01/21/20 11:30 02/29/20 13:21 DC Nicotine (Nicoderm Cq 14mg) 1 patch DAILY TD 01/21/20 09:00 02/29/20 13:21 DC Non-Formulary Medication ( See Comment Field Below ) REMOVE LIDODERM PATCH DAILY@21 XX 01/31/20 21:00 03/01/20 20:59 DC 02/05/20 20:19 Non-Formulary Medication ( See Comment Field Below ) SEE COMMENT SECTION ASDIRECTED XX 01/24/20 09:00 02/29/20 13:22 DC 01/24/20 08:25 Nystatin (Mycostatin Powder, Nystop) apply to groin BID TOP 01/23/20 09:00 02/29/20 13:22 DC 02/06/20 08:46 Oxycodone HCl (Roxicodone, Oxyir) 10 mg Q4HP PRN PO SEVERE PAIN (PS 8-10) 01/21/20 11:30 02/29/20 13:16 DC 02/05/20 19:26 Pantoprazole Sodium (Protonix) 40 mg DAILY PO 01/22/20 09:00 02/29/20 13:22 DC 02/06/20 08:44 Ramelteon (Rozerem) 8 mg QHSP PRN PO insomnia 02/02/20 11:00 03/03/20 07:40 DC Saliva Substitute (Mouthkote) 1 sprays TID MT 01/21/20 16:00 02/29/20 13:21 DC 02/03/20 17:18 Salmeterol Xinafoate (Serevent Diskus) 1 puff BID INH 01/21/20 21:00 02/29/20 13:21 DC 02/06/20 11:02 Senna (Senokot) 1 tab QHS PO 01/21/20 21:00 01/30/20 09:35 DC 01/29/20 20:43 Senna (Senokot) 2 tab QHS PO 01/30/20 21:00 02/29/20 20:59 DC 02/01/20 20:25 Sodium Chloride ([place] Nasal [place]) 2 spray TID NA 01/30/20 16:00 02/29/20 15:59 DC 02/03/20 17:18 Sodium Chloride (Saline Lock Flush) 2 ml ASDIRECTED PRN IV SEE LABEL COMMENTS 02/05/20 06:00 03/03/20 07:40 DC Sodium Chloride (Saline Lock Flush) 2 ml SLF IV 02/05/20 06:00 03/03/20 07:40 DC 02/06/20 12:21 Sodium Chloride (Saline Lock Flush) 10 ml ASDIRECTED PRN IV SEE LABEL COMMENTS 01/21/20 17:30 02/04/20 22:47 DC 02/04/20 06:45 Sodium Chloride (Saline Lock Flush) 10 ml PICC IV 01/21/20 18:00 02/04/20 22:47 DC 02/04/20 17:02 Triamcinolone Acetonide (Kenalog 0.1% Ointment) rash on arms from tape DAILY EXT 01/21/20 09:00 02/29/20 13:21 DC 02/06/20 08:47 Zinc Sulfate (Zinc Sulfate) 220 mg DAILY PO 01/22/20 09:00 02/29/20 13:22 DC 02/06/20 08:43 ANNETTE PLAZA MD Mar 04, 2020 14:30
--- NOTE | 2020-03-04 14:31 | IPNPDOC ---
PM&R Progress Note DATE OF SERVICE: Feb 05, 2020 [employer] Dispatcher Progress Note Subjective: Patient reporting his left picc line area is still bothering him and is agreeable to removing it and having an IV placed for the continuation of his IV antibiotics. REVIEW OF SYSTEMS: The following is a completed review of systems and has been reviewed. Review of systems otherwise unremarkable. PAIN: Patient self reports left hip pain EYES: No recent vision changes EARS, NOSE, & THROAT:No throat pain, or dysphagia, or rhinorrhea CARDIOVASCULAR: Denies chest pain or palpitations PULMONARY: Denies shortness of breath GASTROINTESTINAL: Denies constipation/diarrhea GENITOURINARY: denies dysuria MUSCULOSKELETAL:generalized weakness NEUROLOGICAL: +peripheral polyneuropathy HEMATOLOGICAL: denies easy bruising SKIN: right dorsal foot surgical wound, posterior left calf wound, right upper arm rash PSYCHIATRIC: Unremarkable All other review of systems found to be negative. PHYSICAL EXAMINATION: VITAL SIGNS: Please see below. GENERAL: Pleasant and cooperative. No acute distress. HEENT: PERRL. Extraocular movements intact. Clear conjunctiva CARDIOVASCULAR: Irregular rate and rhythm. No murmurs, rubs, or gallops LUNGS: Clear to auscultation bilaterally. No wheezes. No rhonchi ABDOMEN: Soft, nontender, nondistended. Positive bowel sounds. Normal active bowel sounds NEUROLOGICAL: Alert and oriented times three. Cranial nerves II through XII grossly intact. Sensation diminished to light touch bilat LE in stocking pattern EXTREMITIES: 5-\5 strength bilateral upper extremities. 4/5 right hip flexion, knee extension, 3/5 ankle DF, 0/5 EHL 1/5 left hip flexion, 3/5 knee extension 0/5 ankle DF/EHL SKIN: hyperkeratotic calves L>R, posterior left calf with vertical wound with healthy granulation tissue, no exudate -right foot with pins in place, no induration noted around the surgical site -right upper arm erythema in circumscribed square pattern (resolved) -LUE picc line site with mild erythema -low back with mild erythema ASSESSMENT:64-year-old M with past medical history of DM and PVD who presents status new onset right sided weakness. PLAN: 1.Rehab- PT/OT advance gait and ADL training, strengthen/stretch/maintain ROM all 4limbs- working on bed mobility and putting weight through left leg -BUTT WELDER for cognition eval 2. Neuro: patient with recent acute onset right sided hemiparesis, possibly due to TIA as MRI did not confirm ischemic infarct or posterior reversible encephalopathy syndrome- c/u secondary stroke management with statin, ASA, good BP and glycemic control -c/u Cymbalta which will help with motor recovery - peripheral polyneuropathy due to longstanding DM with gait impairment, optimize DM management 3. Cardiac: Afib cu Amiodarone and betablocker, Eliquis on hold due to intraabdominal hematoma -hx of CAD s/p stenting c/u ASA -chronic diastolic CHF grade 2, c/u daily weight, fluid restrict, monitor for fluid overload -HTN c/u lisinopril and amlodipine, medicine consulted to assist in overall management -HLD c/u statin 4. Resp: c/u duonebs, and Serevent, monitor for infection -CLAUDIA may use own cpap 5. Endo: DM with hyperglycemia and peripheral polyneuropathy- c/u Levemir, ISS 6. Pain: chronic low back pain with chronic opioid use, c/u fentanyl, oxycodone, gabapentin, Cymbalta, baclofen -naloxone ordered prn -c/u lidocaine patch to left hip 7. GI ppx: protonix 8. Hypokalemia- resolved 8. DVT ppx; heparin 9. ID: c/u Nafcillin 2g IV q4h x 6 weeks stop date 02-12-20 per ID 7recs appr eciated-following CRP which is down to 1.29, no leukocytosis or fever -c/u triamcinolone for RUE contact dermatitis and vanicream -picc line to be removed today due to contact dermatitis from adhesive -f/u ECHO in 2-4 weeks for known vegetations endocarditis -vitamin C and zinc added for wound healing 10. Ortho: s/p right foot fusion NWB- Dr. Romano following 11. Dispo: 02-06-20 to [facility] as unable to care for him at this time Allergies Coded Allergies: TAPE (Verified Allergy, Mild, RASH/BLISTERS, 08/15/19) Current Medications Current Medications Current Medications Medications (Trade) Dose Ordered Sig/Lexi Route PRN Reason Start Time Stop Time Status Last Admin Dose Admin Acetaminophen (Tylenol Tab) 650 mg Q4HP PRN PO fever/MILD PAIN (PS 1-4) 01/21/20 11:30 02/29/20 13:21 DC 02/01/20 20:24 Albuterol/ Ipratropium (Duoneb (Ipr 0.5mg/Alb 2.5mg)) 3 ml RTID NEB 01/21/20 14:00 02/29/20 13:21 DC 02/05/20 19:27 Amiodarone HCl (Pacerone, Cordarone) 200 mg BID PO 01/22/20 09:00 02/29/20 13:22 DC 02/06/20 08:44 Amlodipine Besylate (Norvasc) 10 mg DAILY PO 01/22/20 09:00 02/29/20 13:22 DC 02/06/20 08:44 Ascorbic Acid (Vitamin C) 500 mg DAILY PO 01/22/20 09:00 02/29/20 13:22 DC 02/06/20 08:44 Aspirin (Ecotrin) 81 mg DAILY PO 01/22/20 09:00 02/29/20 13:22 DC 02/06/20 08:44 Atorvastatin Calcium (Lipitor) 80 mg QHS PO 01/22/20 21:00 02/29/20 13:22 DC 02/05/20 20:19 Baclofen (Lioresal) 5 mg TID PO 01/21/20 16:00 02/29/20 13:21 DC 02/06/20 08:45 Betamethasone Dipropionate (Diprosone) 1 dose DAILY TOP 02/02/20 09:00 02/03/20 20:50 DC 02/03/20 09:41 Bisacodyl (Dulcolax Suppository) 10 mg DAILYPRN PRN [place] CONSTIPATION 01/21/20 11:30 02/29/20 13:21 DC Bisacodyl (Dulcolax Tab) 5 mg DAILYPRN PRN PO CONSTIPATION 01/21/20 11:30 02/29/20 13:21 DC Dextrose (Dextrose 50%) 25 ml ASDIRECTED PRN IV SEE LABEL COMMENTS 01/21/20 11:30 02/29/20 13:21 DC Docusate Sodium (Colace) 100 mg BID PO 01/21/20 21:00 01/23/20 16:15 DC Docusate Sodium (Colace) 100 mg TID PO 01/30/20 09:00 02/29/20 13:26 DC 02/03/20 09:33 Duloxetine HCl (Cymbalta) 60 mg DAILY PO 01/22/20 09:00 02/29/20 13:22 DC 02/06/20 08:44 Emollient Cream (Vanicream) 1 dose BID TOP 01/21/20 21:00 02/29/20 13:21 DC 02/06/20 08:54 Fentanyl (Duragesic) 100 mcg Q72H TOP 01/24/20 09:00 02/29/20 13:16 DC 02/05/20 08:52 Fluticasone Propionate (Flonase 0.05% Nasal [place]) 1 spray BID NARES 01/30/20 21:00 02/29/20 20:59 DC 02/03/20 09:41 Gabapentin (Neurontin) 600 mg TID PO 01/21/20 16:00 02/29/20 13:21 DC 02/06/20 08:44 Glucagon (Glucagon) 1 mg ASDIRECTED PRN SC SEE LABEL COMMENTS 01/21/20 11:30 02/29/20 13:21 DC Glucose (Glucose) 16 GM ASDIRECTED PRN PO SEE LABEL COMMENTS 01/21/20 11:30 02/29/20 13:21 DC Heparin Sodium (Heparin (Flush)) 200 units ASDIRECTED PRN IV SEE LABEL COMMENTS 01/21/20 17:30 02/04/20 22:47 DC 02/04/20 02:37 Heparin Sodium (Heparin (Flush)) 200 units PICC IV 01/21/20 18:00 02/04/20 22:47 DC 02/04/20 17:01 Heparin Sodium (Porcine) (Heparin) 5,000 units Q12H SC 01/21/20 21:00 02/29/20 13:16 DC 02/06/20 08:54 Home Med (Med Rec Complete!) ASDIRECTED XX 01/21/20 15:00 01/21/20 14:51 DC Insulin Detemir (Levemir Insulin) 45 units BID SC 01/21/20 21:00 02/03/20 07:25 DC 02/02/20 20:34 Insulin Detemir (Levemir Insulin) 48 units BID SC 02/03/20 09:00 03/03/20 07:40 DC 02/06/20 08:42 Insulin Human Lispro (HumaLOG INSULIN) SEE PROTOCOL TABLE AC SC 01/21/20 12:00 02/29/20 13:21 DC 02/06/20 12:21 Insulin Human Lispro (HumaLOG INSULIN) SEE PROTOCOL TABLE QHS SC 01/21/20 21:00 02/29/20 13:21 DC 02/02/20 20:34 Lactobacillus Acidophilus (Bacid) 1 ea TID PO 01/21/20 16:00 02/29/20 13:21 DC 02/06/20 08:53 Latanoprost (Xalatan 0.005% Op Soln) 1 drop QHS OU 01/21/20 21:00 02/29/20 13:21 DC 02/05/20 20:20 Lidocaine (Lidoderm Patch) 1 patch DAILY TD 01/31/20 09:00 03/01/20 09:00 DC 02/06/20 08:45 Lisinopril (Prinivil) 2.5 mg DAILY PO 01/22/20 09:00 02/29/20 13:22 DC 02/06/20 08:43 Metoprolol Succinate (TopROL XL) 50 mg DAILY PO 01/22/20 09:00 02/29/20 13:22 DC 02/06/20 08:44 Miscellaneous (Unresolved Clarification Entry) SEE LABEL COMMENTS DAILY XX 01/25/20 09:00 01/26/20 11:03 DC Miscellaneous (Unresolved Clarification Entry) SEE LABEL COMMENTS DAILY XX 02/02/20 09:00 02/03/20 09:47 DC Multivitamins (Theragram-M) 1 tab DAILY PO 01/22/20 09:00 02/29/20 13:22 DC 02/06/20 08:44 Nafcillin Sodium 2 gm/Dextrose 50 ml @ 50 mls/hr Q4H IV 01/21/20 17:00 02/29/20 13:15 DC 02/06/20 12:21 Naloxone HCl (Narcan) 0.1 mg Q5MP PRN IV RESP. RATE < 10 01/21/20 11:30 02/29/20 13:21 DC Nicotine (Nicoderm Cq 14mg) 1 patch DAILY TD 01/21/20 09:00 02/29/20 13:21 DC Non-Formulary Medication ( See Comment Field Below ) REMOVE LIDODERM PATCH DAILY@21 XX 01/31/20 21:00 03/01/20 20:59 DC 02/05/20 20:19 Non-Formulary Medication ( See Comment Field Below ) SEE COMMENT SECTION ASDIRECTED XX 01/24/20 09:00 02/29/20 13:22 DC 01/24/20 08:25 Nystatin (Mycostatin Powder, Nystop) apply to groin BID TOP 01/23/20 09:00 02/29/20 13:22 DC 02/06/20 08:46 Oxycodone HCl (Roxicodone, Oxyir) 10 mg Q4HP PRN PO SEVERE PAIN (PS 8-10) 01/21/20 11:30 02/29/20 13:16 DC 02/05/20 19:26 Pantoprazole Sodium (Protonix) 40 mg DAILY PO 01/22/20 09:00 02/29/20 13:22 DC 02/06/20 08:44 Ramelteon (Rozerem) 8 mg QHSP PRN PO insomnia 02/02/20 11:00 03/03/20 07:40 DC Saliva Substitute ([place]) 1 sprays TID MT 01/21/20 16:00 02/29/20 13:21 DC 02/03/20 17:18 Salmeterol Xinafoate (Serevent Diskus) 1 puff BID INH 01/21/20 21:00 02/29/20 13:21 DC 02/06/20 11:02 Senna (Senokot) 1 tab QHS PO 01/21/20 21:00 01/30/20 09:35 DC 01/29/20 20:43 Senna (Senokot) 2 tab QHS PO 01/30/20 21:00 02/29/20 20:59 DC 02/01/20 20:25 Sodium Chloride ([place] Nasal [place]) 2 spray TID NA 01/30/20 16:00 02/29/20 15:59 DC 02/03/20 17:18 Sodium Chloride ([place] Flush) 2 ml ASDIRECTED PRN IV SEE LABEL COMMENTS 02/05/20 06:00 03/03/20 07:40 DC Sodium Chloride ([place] Flush) 2 ml SLF IV 02/05/20 06:00 03/03/20 07:40 DC 02/06/20 12:21 Sodium Chloride ([place] Flush) 10 ml ASDIRECTED PRN IV SEE LABEL COMMENTS 01/21/20 17:30 02/04/20 22:47 DC 02/04/20 06:45 Sodium Chloride ([place] Flush) 10 ml PICC IV 01/21/20 18:00 02/04/20 22:47 DC 02/04/20 17:02 Triamcinolone Acetonide (Kenalog 0.1% Ointment) rash on arms from tape DAILY EXT 01/21/20 09:00 02/29/20 13:21 DC 02/06/20 08:47 Zinc Sulfate (Zinc Sulfate) 220 mg DAILY PO 01/22/20 09:00 02/29/20 13:22 DC 02/06/20 08:43 ANNETTE PLAZA MD Mar 04, 2020 14:31
--- NOTE | 2020-04-02 12:07 | PMRDS ---
DATE OF ADMISSION: 01/21/2020. DATE OF DISCHARGE: 02/06/2020. CHIEF COMPLAINT/DISCHARGE DIAGNOSIS: Stroke with endocarditis. HISTORY OF PRESENT ILLNESS: This is a 64-year-old male with a past medical history of diabetes type 2 with peripheral neuropathy, CAD with stents, atrial fibrillation on Eliquis, chronic anemia, CLAUDIA on CPAP, CKD, PVD, COPD, chronic diastolic CHF, right lower extremity osteomyelitis; status post right foot debridement on 01/03/2020 and right foot fusion on 01/08/2020, who was treated for MSSA bacteremia and atrial fibrillation with RVR at [facility] and then transferred to [facility] on 01/14/2020 for stroke symptoms of right-sided weakness and neglect. At [facility], did not show intracranial hemorrhage. MRI was negative for ischemic pathology, but did show bilateral occipital white matter and bilateral cerebellar hemisphere without diffusion restriction. These image features can be seen in posterior reversible encephalopathy syndrome. SHELBI did show vegetations on the right coronary cusp and aortic valve. He ultimately was taken off of Eliquis due to concerns for his chronic abdominal hematoma and he remained on Amiodarone for rate control. Despite having bilateral ICA stenosis, neurosurgery did not recommend intervention in the setting of bacteremia endocarditis. He was evaluated by therapy and found to have impairment of mobility and ADLs and below his prior level of function, and deemed medically appropriate for discharge to ARU on 01/21/2020. PAST MEDICAL HISTORY: As per HPI. HOSPITAL COURSE: Patient was admitted and enrolled in a comprehensive PT/OT program. He received 24 hour nursing supervision and weekly team meetings were held to discuss his progress. Patient was maintained on aspirin and statin for secondary stroke prevention. His glycemic control was optimized in addition to his blood pressure. He was on fluid restriction for his history of diastolic CHF grade 2 and had episodes of hyperglycemia, which were treated with insulin. He was maintained on a course of I.V. antibiotics, followed closely by infectious disease, and remain non-weightbearing to his right lower extremity. He made steady improvements in his overall mobility particularly his bed mobility and had considerable increased range of motion of his left lower extremity. He was deemed medically and functionally stable to continue rehab at a lower level of care, and was discharged on 02/06/2020. DISCHARGE MEDICATIONS: As per instructions. FUNCTIONAL HISTORY ON DISCHARGE: Patient was standby assist for bed mobility. In occupational therapy, he was min assist for bathing, standby assist for upper body dressing and mod assist for lower body dressing. Thank you for this referral. MEEK
== END 2020-02-06 12:30 | disposition home or self-care (01) | DRG 57 ==
LOC: M PM&R 12:56 → UNDODISIN 02-07
PROVIDERS: ADMIT Physical Medicine & Rehabilitation; ATTEND Physical Medicine & Rehabilitation
DX: I69.851 Hemiplegia and hemiparesis following other cerebrovascular disease affecting right dominant side (principal); I13.0 Hypertensive heart and chronic kidney disease with heart failure and stage 1 through stage 4 chronic kidney disease, or unspecified chronic kidney disease; I50.32 Chronic diastolic (congestive) heart failure; M87.051 Idiopathic aseptic necrosis of right femur; E11.42 Type 2 diabetes mellitus with diabetic polyneuropathy; I25.10 Atherosclerotic heart disease of native coronary artery without angina pectoris; R26.89 Other abnormalities of gait and mobility; M79.81 Nontraumatic hematoma of soft tissue; E11.65 Type 2 diabetes mellitus with hyperglycemia; M54.5 Low back pain; D64.9 Anemia, unspecified; G47.33 Obstructive sleep apnea (adult) (pediatric); N18.9 Chronic kidney disease, unspecified; E87.6 Hypokalemia; E11.22 Type 2 diabetes mellitus with diabetic chronic kidney disease; I35.8 Other nonrheumatic aortic valve disorders; E11.51 Type 2 diabetes mellitus with diabetic peripheral angiopathy without gangrene; L23.1 Allergic contact dermatitis due to adhesives; E11.610 Type 2 diabetes mellitus with diabetic neuropathic arthropathy; J44.9 Chronic obstructive pulmonary disease, unspecified; I48.91 Unspecified atrial fibrillation; I65.23 Occlusion and stenosis of bilateral carotid arteries; R53.1 Weakness; Z95.5 Presence of coronary angioplasty implant and graft; Z95.820 Peripheral vascular angioplasty status with implants and grafts; Z89.412 Acquired absence of left great toe; Z98.1 Arthrodesis status; Z85.820 Personal history of malignant melanoma of skin; Z87.891 Personal history of nicotine dependence; Z79.82 Long term (current) use of aspirin; Z79.4 Long term (current) use of insulin; Z91.048 Other nonmedicinal substance allergy status; Z79.891 Long term (current) use of opiate analgesic

== ENCOUNTER → 2020-03-06 | Outpatient (REF) | payer MEDICARE, BC ==
[~2020-03-06] MED LIST changes: +ACET1TAB55 PO; +AMIO200T3 PO; +AMMO12LO TOP; +ASCO500T PO; +ATOR80TA59 PO; +BACITAB PO; +BISA10SU PR; +BISA10SU20 PR; +CEPH500T PO; +DICL25CA PO; +ELIQ2.5T PO; +FENT100D25 TD; +FLUTISP NARES; +HEPA100I26 SC; +HEPA500011 SC; +IPRA0.00 NEB; +LIDO5DIS41 TD; +LIDO5TD TD; +LISI2.5T2 PO; +Latanoprost 0.005% Op Soln OU; +METO1TAB7 PO; +MOM30SS2 PO; +MOUKOT60 MT; +NALO0.4I3 IV; +NYST10006 TOP; +NYST1CRE15 TOP; +OMEG10002 PO; +PROAAER10 INH; +RISATAB3 PO; +SENN18TA PO; +SENN8.6T58 PO; +Sodium Chloride Nasal Spray; +TRIA1OI EXT; +VANI1CRE5 TOP; +Zinc Oxide/Petrolatum,White TOP
== END ==
LOC: M LAB REF 10:45
PROVIDERS: ATTEND Dermatology
DX: C44.41 Basal cell carcinoma of skin of scalp and neck (principal)
CPT/HCPCS: 11102; 88305; G0463

== ENCOUNTER 2020-04-01 16:18 | Inpatient (IN) | payer MEDICARE, BC, MEDICAID ==
[2020-04-01] VITALS (15 sets, daily range): BP systolic 62–126; BP diastolic 44–88
[~2020-04-01] VITALS: Ht 180.3 cm; Wt 84.9 kg
[~2020-04-01 16:18] MED LIST changes: -AMMO12LO TOP; -ASCO500T PO; -BACITAB PO; -BISA10SU20 PR; -CEPH500T PO; -DICL25CA PO; -ELIQ2.5T PO; -FENT100D25 TD; -HEPA100I26 SC; -LIDO5DIS41 TD; -MOM30SS2 PO; -NYST1CRE15 TOP; -SENN8.6T58 PO
[2020-04-01] MEDS ORDERED: NS 1,000 ML IV ONE ×4 (18:45→22:00)
[2020-04-01] MEDS ORDERED: NOREPINEPHRINE BITARTRATE 8 MG in D5W 492 ML IV SCH (18:45)
[2020-04-01] MEDS ORDERED: NOREPINEPHRINE 4 MG/4 ML AMP As Ordered ONE (18:56)
[2020-04-01] MEDS: NS 1,000 ML IV SCH ×3 (19:46→20:38)
[2020-04-01] MEDS ORDERED: OXYC-517 PO (20:10)
[2020-04-01] MEDS ORDERED: INSUDET SC (20:10)
[2020-04-01] MEDS ORDERED: INSUHUMDS SC (20:10)
--- NOTE | 2020-04-01 20:11 | HPEPDOC ---
[facility] Medical History & Physical Date of Admission Apr 01, 2020 Date of Service: Apr 01, 2020 Attending Physician: KIAH SAVAGE MD History and Physical CHIEF COMPLAINT: sepsis HISTORY OF PRESENT ILLNESS: Patient is a 64 year old male transferred from [place] ED for severe sepsis. Per [place] ED records he was found altered and lethargic with a fentanyl patch on him (prescribed) at [facility] rehab facility and was given narcan once by staff and once by EMS on arrival with improvement in his mental status. On arrival to [place] ED he had a GCS of 15 reportedly disoriented, tachypneic, and hypotensive (98/59). He was given another dose of narcan, a 500 cc bolus, and NS at 150/[id number]. Following Narcan administration his upper body was noted to be twitching more so he was given 1 mg IV ativan with improvement in symptoms, his blood pressure similarly improved and his IV rate was decreased to 125ml/hr. At 1240 (1 hour after ED arrival), IVF were DC'd after 700 ml had been given and 40 mg IV lasix was given, IV zosyn initiated, and an additional dose of narcan was given. The patient's blood pressure continued to decline and 45 minutes after the lasix the patient was restarted on IVF at 125ml/hr, the blood pressure recovered to 101/52. An ABG was obtained showing 7.35/47.7/57.2. Patients blood pressure ranged between MAP of 53-76 from that point on. His UA was positive, CXR showing pneumonia, leukocytosis of 21k w/ left shift, H/H (13.5/42.9) w/plt of 204. Inital lactic acid 2.5, CMP w/ K of 5.3, BUN/Cr (49/2.4), normal lipase, PTT, PT/INR, and normal troponin. A CT scan of the RLE was ordered out of concern for R-foot osteomyelitis and the patient was transferred to [facility] since they did not have surgery present at their facility, the results of that CT are unavailable, but the CD was provided. The patient does not recall any of the events of the last 24-48 hours, but presently only complains of feeling thirsty and having a cough productive of "sticky sputum" that he thinks has been present for a couple of days. His states she usually calls her every 2-3 days and was due to call him today, but as far as she knew he was in his usual state of health a few days prior complaining only of things he typically complained of like hip and back pain. The patient otherwise denies any fevers, chills, chest pain, SOB, dyspnea, hemoptysis, wheezing, abdominal pain, dysphagia, nausea, vomiting, diarrhea, hematochezia, melena, dysuria, hematuria, or new skin changes. He was unable to provide me a history of the past couple months so I reached out to his who states he has been at [facility] for rehab while awaiting pins to be removed this Tuesday 04/03 from his RLE by Dr. Romano after having RLE osteoteomyelitis requiring foot debridement with R-foot fusion at [facility] in December 2019. At that time, he was treated for MSSA bacteremia, aortic valve endocarditis, and afib w/ RVR before being transferred from [facility] to [facility] for stroke symptoms (R-sided weakness/neglect) without intervention before being transferred back to [facility] ARU with plans for him to be discharged to [place] for placement while he awaited removal of his RLE foot pins. PAST MEDICAL HISTORY: #. T2DM w/peripheral polyneuropathy #. CAD with stents in 2000 at [facility] #. Afib (non-valvular) previously on Eliquis, DC'd 2/ retroperitoneal hematoma #. Hx of chronic anemia #. CLAUDIA non-compliant with CPAP #. CKD #. PVD s/p 4 stents placed in LE. #. COPD #. HFpEF w/EF (12/2019 echo) #. Hx of RLE osteomyelitis s/p right foot debridement on 01/03/20 and right foot fusion 01/08/20 #. MSSA bacteremia and afib with RVR at [facility] then transferred to [facility] 01-14-20 for stroke symptoms of right sided weakness and neglect. #. Hx of HTN #. 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 Hx of melanoma PAST SURGICAL HISTORY: #. Rotator cuff surgery. #. Bilateral common and external iliac artery angioplasty and stent #. Left superficial femoral artery angioplasty and stenting #. Left 1st toe amputation #. C6-C7 corpectomy with fusion #. Cardiac stent x1 in 2001 #. Melanoma removal from left eyelid SOCIAL HISTORY: Quit smoking in the past month owing to his hospitalizations, prior 25 pack year history, Usually lives at home with his . He denies any alcohol or illicit drug use. FAMILY HISTORY: Father from cancer. Mother still alive ALLERGIES: Please see below. REVIEW OF SYSTEMS: Constitutional: Denies fevers, chills, night sweats, or recent unexpected weight change HEENT: Denies Headaches, head trauma, No visual changes or eye pain, denies nose bleeds, or difficulty swallowing Cardiovascular: Denies chest pain, palpitations, or orthopnea Respiratory: Denies wheezing, hemoptysis, shortness of breath. Admits to productive cough. GI: Denies nausea, vomiting, abdominal pain, diarrhea or constipation : Denies pain with urination, difficulty urinating, or frequency Musculoskeletal: Denies joint pain or swelling Neuro / Psych: Denies muscle weakness. Admits to chronic lower extremity neuropathy Skin: Denies skin rashes HOME MEDICATIONS: Please see below. PHYSICAL EXAMINATION: VITAL SIGNS: See below GENERAL: Pale, elderly appearing male who appears older than stated age laying back in bed in no acute distress HEENT: NC, AT, EOMI, no scleral icterus, dry mucous membranes, no pharyngeal erythema. NECK: No cervical or supraclavicular lymphadenopathy. No JVD. CARDIOVASCULAR: RRR, normal S1 and S2. No murmurs, gallops, rubs. LUNGS: Diminished breath sounds bilaterally with fine crackles in R lung base, no wheezes, mild rhonchi. No dullness to percussion noted on exam. ABDOMEN: Soft, non-tender, non-distended, bowel sounds present. No hepatosplenomegaly. No masses or eccymosis. No CVA tenderness. EXTREMITIES: No swelling or edema. Chronic dark skin changes on bilateral lower extremities. Both feet wrapped in pressure boots, LLE with posterior wound that is C/D/I, R-foot with multiple pins in place and dark area between 1st and 2nd digit that appears to be dried blood. Capillary refill +2/4 in bilateral LE. SKIN: Erythematous, confluent, non-tender rash over abdomen, LUE, RUE. Skin turgor mildly decreased. NEUROLOGICAL: A&Ox3. Generalized intermittent body jerks at rest. Diminished sensation in bilateral lower extremities. CN II-XII grossly intact. PSYCHIATRIC: Normal mood and affect. LABORATORY DATA: See below. IMAGIN04/01/2020 portable CXR: Central line placement confirmed, no signs of pneumothorax, SQ emphysema, Infiltrates visualized in R-Lateral lower lobe. MICROBIOLOGY: Please see below. Assessment/Plan: #. Severe Sepsis -Patient is clinically still dehydrated on exam, max of 1 liter given at [place], will give at least another 3 liters with CVP reassessments intermittently -Empiric abx w/ Vanc and Zosyn should cover for UTI and pneumonia adequately. BCx2, UA w/ cultures, lactic acid previously elevated to 2.8 at [place], now 1.8. -40 cc/kg bolus given, will volume resuscitate to at least 5L including [place]'s 1L as patient's initial and repeat CVP's were still <12. -Maintain MAP>65, if unable to w/ IVF, initiate Levophed. Dr. Bryan with pulmonology has been consulted for central line placement which is appreciated. -ID consulted, day team to reach out in AM. #. Hypercarbic hypoxic respiratory failure -Patient not on home oxygen, but requiring 2L NC at [place] and now 5L here to maintain b/w 88-92% -ABG 7.29/52.2/69.2, will perform trial of vapotherm and reassess in 1 hour with repeat ABG #. Hypotension -see severe sepsis #. RLL pneumonia -see severe sepsis #. UTI (reported by diane, UA pending) -See severe sepsis #. Acute on chronic renal failure -Creatinine already improved with IVF compared to [place], will continue to trend #. Hx of RLE osteomyelitis s/p foot fusion -Patient to have pins removed this Monday by Dr. Romano -CT of right foot done at [place] was apparent deciding factor in the transfer as they have no surgery available, day team to reach out to podiatry if they feel it is necessary though nothing on clinical exam at this time makes me suspect any change in patient's foot -PT wound care consulted #. CHFpEF of 60-65% (as of 12/2019) -Patient is dehydrated with low CVP, suspect lung sounds are secondary to pneumonia. -Will continue to monitor fluid status, no effusions on portable CXR -Hx of moderate pulm HTN, mild MR, mild TR, with normal LV systolic function #. COPD (non-oxygen dependent) -Continue home duonebs, salmeterol inhaler #. Left Femoral Head Collapse/avascular necrosis -Chronic issue, with plans for replacement once foot issues resolves -Continue oxycodone with holding parameters -Ok to continue cymbalta -Holding fentanyl patch and gabapentin due to history of AMS and patient's ARF #. Paroxysmal Afib -Continue amiodarone -Metoprolol on hold -Anticoagulation held several months ago for a retroperitoneal hematoma and was never resumed, the question as to whether or not he should resume oral AC should be further addressed while he is inpatient. #. Resting tremors -Patient with possible parkinsonian features that have never been worked up or evaluated previously. Ok to pursue further work up for this on an outpatient basis. #. Hx of Aortic valve endocarditis - Blood cultures pending, but will do broad spectrum coverage to be safe initially. #. Hx of CLAUDIA non-compliant with CPAP -CLAUDIA protocol ordered #. CAD s/p stents - Continue ASA, statin #. PVD - Continue ASA, statin #. T2DM -sliding scale, levemir 24 units bid -consistent carb diet #. HTN -Amlodipine, metoprolol on hold until resolution of sepsis DVT prophylaxis: Heparin GI prophylaxis: Protonix Diet: consistent carb, low sodium Lines: L-IJ, R-AC Dispo: pending clinical improvement Point of contact: Itzel [phone] CODE STATUS: FULL CODE Vital Signs Vital Signs Date Time Temp Pulse Resp B/P (MAP) Pulse Ox O2 Delivery O2 Flow Rate FiO2 04/01/20 19:00 80 24 74/50 (58) 91 Nasal Cannula 3.0 04/01/20 18:09 98.1 Laboratory Data Labs 24H Laboratory Tests 2 04/01/20 19:49: CBC/BMP Microbiology Microbiology 04/01/20 Blood Culture, Received Pending Home Medications Scheduled Amiodarone HCl (Amiodarone HCl) 200 Mg Tablet, 200 MG PO BID Amlodipine Besylate (Amlodipine Besylate) 10 Mg Tablet, 10 MG PO DAILY Ammonium Lactate (Ammonium Lactate) 12% Lotion, 1 APLCT TOP BID APPLY TO BILATERAL LEGS Ascorbic Acid (Ascorbic Acid) 500 Mg Tablet, 500 MG PO DAILY Aspirin (Aspir 81) 81 Mg Tablet.dr, 81 MG PO DAILY Atorvastatin Calcium (Atorvastatin Calcium) 80 Mg Tablet, 80 MG PO QHS Baclofen (Baclofen) 10 Mg Tablet, 5 MG PO TID Cephalexin (Cephalexin) 500 Mg Tablet, 500 MG PO QID Docusate Sodium (Colace) 100 Mg Capsule, 100 MG PO TID Duloxetine Hcl (Duloxetine HCl) 60 Mg Capsule.dr, 60 MG PO DAILY Emollient Base (Vanicream) 453 Gm Cream..g., 1 APLCT TOP BID APPLY TO LEGS Fentanyl (Fentanyl) 100 Mcg Patch.td72, 100 MCG TD Q3RD APPLIED TO LEFT LOWER ABDOMEN Gabapentin (Gabapentin) 300 Mg Capsule, 600 MG PO TID Heparin Sodium,Porcine/Pf (Heparin 1,000 Unit/10 (100/ml)) 1,000 Unit/10 Ml Syringe, 5,000 UNIT SC Q12H Insulin Detemir (Levemir) 100 Unit/1 Ml Vial, 48 UNITS SC BID Insulin Human Lispro (Humalog) 100 Unit/1 Ml Vial, 1 DOSE SC ACHS PER SLIDING SCALE L.acidoph/L.bulg/B.bif/S.therm (Bacid Caplet) 1 Each Tablet, 1 TAB PO TID Latanoprost (Xalatan) 0.005% 2.5ML Drops, 1 DROP OU QHS Lidocaine (Lidoderm) 5% Adh..patch, 1 PATCH TD DAILY APPLY TO LEFT LATERAL HIP Metoprolol Succinate (Metoprolol Succinate) 50 Mg Tab.er.24h, 50 MG PO DAILY Multivitamins (Thera M Plus Tablet) 1 Each Tablet, 1 TAB PO DAILY Nystatin/Triamcin (Nystatin-Triamcinolone Cream) 15 Gm Cream..g., 1 APLCT TOP TID APPLY TO SACRUM Pantoprazole Sodium (Pantoprazole Sodium) 40 Mg Tablet.dr, 40 MG PO DAILY Salmeterol (Serevent Diskus) 50 Mcg Blst.w.dev, 1 PUFF INH BID Sennosides (Senna) 8.6 Mg Tablet, 1 TAB PO BID Zinc Sulfate (Zinc Sulfate) 220 Mg Capsule, 220 MG PO DAILY Scheduled PRN Acetaminophen (Acetaminophen) 325 Mg Tablet, 650 MG PO Q4H PRN for PAIN Bisacodyl (Bisacodyl) 10 Mg Supp.rect, 10 MG TN DAILY PRN for CONSTIPATION Ipratropium/Albuterol Sulfate (Iprat-Albut 0.5-3(2.5) mg/3 ml) 3 Ml Ampul.neb, 1 VIAL NEB Q8H PRN for SOB/WHEEZING Magnesium Hydroxide (Milk of Magnesia) 400 Mg/5 Ml Oral.susp, 30 ML PO DAILY PRN for CONSTIPATION Oxycodone HCl (Oxycodone HCl) 5 Mg Tablet, 5 MG PO Q6H PRN for PAIN Allergies Coded Allergies: TAPE (Verified Allergy, Mild, RASH/BLISTERS, 08/15/19) A-FIB/CHADSVASC A-FIB History Current/History of A-Fib/PAF?: Yes Current PO Anticoag Therapy: No Age/Risk Factor Scoring CHADSVASC: CHADSVASC Response (Comments) Value Hx of CHF Yes 1 Hx of HTN Yes 1 Hx of Stroke/TIA/or VTE No (unclear whether a stroke occurred but the patient had stroke like symptoms) 0 Hx of Diabetes Yes 1 Hx of Vascular Disease Yes 1 Total 4 Treatment Treatment ordered: NONE Reason Anticoagulant not given: Other (Patient w/ history of worsening abdominal hematoma in the past. ) Other reason anticoagulant not: unknown status of retroperitoneal hematoma GME ATTESTATION GME ATTESTATION My faculty preceptor for this patient encounter was physically present during the encounter and was fully available. All aspects of the patient interview, examination, medical decision making process, and medical care plan development were reviewed and approved by the faculty preceptor. The faculty preceptor is aware and concurs with the plan as stated in the body of this note and will attest to such by his/her cosignature. ATTENDING NOTE 64 yo M well known to Dr. Hancock with a history of DM2, CAD s/p PCI, Afib recently off eliquis after worsening abdominal hematoma, CKD, PVD, COPD, HFpEF, RLE osteomyelitis s/p debridement and follows with Dr. 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 as well as zosyn and now in the ICU, started on empiric vanc/piptazo with ongoing infectious workup, initially responsive to f luids now starting levophed gtt with presumed PNA, ongoing hypoxemic respiratory failure with mild hypercarbia on vapotherm and metabolic encephalopathy. DEBBIE BLACK DO Apr 01, 2020 20:11 KIAH SAVAGE MD Apr 02, 2020 03:11
[2020-04-01 20:16] LABS: HEMATOCRIT 32.7 % (42.0-52.0); HEMOGLOBIN 10.3 g/dl (13.5-17.5); MEAN CORPUSCULAR HEMOGLOBIN 28.1 pg (27.0-33.0); MEAN CORPUSCULAR HGB CONC 31.5 g/dl (32.0-36.5); MEAN CORPUSCULAR VOLUME 89.3 fl (80.0-96.0); PLATELET COUNT, AUTOMATED 143 10^3/uL (150-450); RED BLOOD COUNT 3.66 10^6/uL (4.30-6.10)
[2020-04-01] MEDS ORDERED: AMIO200T3 PO (20:32)
[2020-04-01] MEDS ORDERED: MOM30SS2 PO (20:32)
[2020-04-01] MEDS ORDERED: ASCO500T PO (20:32)
[2020-04-01] MEDS ORDERED: PANT-23 PO (20:32)
[2020-04-01] MEDS ORDERED: FENT100D25 TD (20:32)
[2020-04-01] MEDS ORDERED: LIDO5DIS41 TD (20:32)
[2020-04-01] MEDS ORDERED: IPRA0.00 NEB (20:32)
[2020-04-01] MEDS ORDERED: AMMO12LO TOP (20:32)
[2020-04-01] MEDS ORDERED: AMLO1TAB25 PO (20:32)
[2020-04-01] MEDS ORDERED: ACET1TAB55 PO (20:32)
[2020-04-01] MEDS ORDERED: BACITAB PO (20:32)
[2020-04-01] MEDS ORDERED: SENN8.6T58 PO (20:32)
[2020-04-01] MEDS ORDERED: CEPH500T PO (20:32)
[2020-04-01] MEDS ORDERED: DULO1CAP6 PO (20:32)
[2020-04-01] MEDS ORDERED: BISA10SU20 PR (20:32)
[2020-04-01] MEDS ORDERED: HEPA100I26 SC (20:32)
[2020-04-01] MEDS ORDERED: XALA0.007 OU (20:32)
[2020-04-01] MEDS ORDERED: NYST1CRE15 TOP (20:32)
[2020-04-01] MEDS ORDERED: VANI1CRE5 TOP (20:32)
[2020-04-01] MEDS ORDERED: ATOR80TA59 PO (20:32)
[2020-04-01] MEDS ORDERED: SALMDISK INH (20:32)
[2020-04-01] MEDS ORDERED: VITMTA PO (20:32)
[2020-04-01] MEDS ORDERED: GABA-843 PO (20:32)
[2020-04-01] MEDS ORDERED: COLA100C5 PO (20:32)
[2020-04-01] MEDS ORDERED: ZINC220CA PO (20:32)
[2020-04-01] MEDS ORDERED: ASPI81TA86 PO (20:32)
[2020-04-01] MEDS ORDERED: METO1TAB7 PO (20:32)
[2020-04-01] MEDS ORDERED: BACL10TA2 PO (20:32)
[2020-04-01 20:48] LABS: LYMPHOCYTES 6 % (16-44); METAMYELOCYTES 2 % (0-0); MONOCYTES 5 % (0-5); MYELOCYTES 2 % (0-0); NEUTROPHILS 75 % (28-66)
[2020-04-01 20:49] LABS: PLATELET ESTIMATE NORMAL (NORMAL)
[2020-04-01 20:50] LABS: ALBUMIN 2.4 GM/DL (3.2-5.2); ALT/SGPT 23 U/L (12-78); BILIRUBIN,TOTAL 0.4 MG/DL (0.2-1.0); BLOOD UREA NITROGEN 51 MG/DL (7-18); CALCIUM LEVEL 7.8 MG/DL (8.8-10.2); CARBON DIOXIDE LEVEL 28 MEQ/L (21-32); CHLORIDE LEVEL 106 MEQ/L (98-107); CK-MB VALUE MASS 2.2 NG/ML (<3.6); CPK CREATINE PHOSPHOKINASE 159 U/L (39-308); CREATININE FOR GFR 1.89 MG/DL (0.70-1.30); GLOMERULAR FILTRATION RATE 38.4 (>49); GLUCOSE, FASTING 171 MG/DL (70-100); MB/CK RELATIVE INDEX 1.38 (< OR =4); NT-PRO BNP 1060 PG/ML (<125); POTASSIUM SERUM 4.4 MEQ/L (3.5-5.1); SODIUM LEVEL 141 MEQ/L (136-145); TOTAL PROTEIN 5.4 GM/DL (6.4-8.2); TROPONIN I < 0.02 NG/ML (< 0.10)
[2020-04-01 20:54] LABS: ERYTHROCYTE SEDIMENTATION RATE 43 mm/hr (0-20)
[2020-04-01] MEDS ORDERED: ACETAMINOPHEN TAB 650MG DOSE (2X325MG) PO PRN (21:00)
[2020-04-01] MEDS: LATANOPROST 0.005% OPHTH SOLN 2.5 ML OU SCH (21:00)
[2020-04-01] MEDS: MYCOLOG CREAM 15 GM (NYSTATIN/TRIAMCINOLONE) TOP SCH (21:00)
[2020-04-01] MEDS ORDERED: BISACODYL 10 MG SUPP PR PRN (21:00)
[2020-04-01] MEDS: SALMETEROL DISKUS 50MCG INHALER (SEREVENT) INH SCH (21:00)
[2020-04-01] MEDS ORDERED: MOM 30ML SUSPENSION UDC PO PRN (21:00)
[2020-04-01] MEDS: LACTIC ACID 12% LOTION 225 GM BTL TOP SCH (21:00)
[2020-04-01] MEDS ORDERED: IPRATROPIUM 0.5MG/ALBUTEROL 2.5MG INH SOL UD 3ML (DUONEB) NEB PRN (21:00)
[2020-04-01] MEDS: VANICREAM MOISTURIZING SKIN CREAM 113GM TUBE TOP SCH (21:00)
[2020-04-01] MEDS ORDERED: GLUCAGON INJ 1MG VIAL SC PRN (21:15)
[2020-04-01] MEDS ORDERED: GLUCOSE 4GM CHEW TABLET PO PRN (21:15)
[2020-04-01] MEDS ORDERED: DEXTROSE 50% 50 ML SYRINGE IV PRN (21:15)
[2020-04-01] MEDS: PIPERACILLIN/TAZOBACTAM SOD 4.5 GM in D5W MINI-BAG PLUS 50 ML IV SCH (21:19)
[2020-04-01 21:50] LABS: ABG BASE EXCESS -2.4 (-2.0-2.0); ABG HCO3 24.6 MEQ/L (22.0-26.0); ABG O2 SATURATION 92.6 % (95.0-99.0); ABG PARTIAL PRESSURE CO2 52.2 mmHg (35.0-45.0); ABG PARTIAL PRESSURE O2 69.2 mmHg (75.0-100.0); ABG STANDARD HCO3 22.4 MEQ/L (22.0-26.0); ABG TOTAL CO2 26.2 MEQ/L (23.0-31.0); ABG pH (ARTERIAL) 7.291 UNITS (7.350-7.450)
[2020-04-01] MEDS: DOCUSATE SODIUM 100 MG CAP PO SCH (21:57)
[2020-04-01] MEDS: LACTOBACILLUS ACIDOPHILUS CAP (BACID) PO SCH (21:57)
[2020-04-01] MEDS: SENNA 8.6 MG TAB (SENOKOT) PO SCH (21:57)
[2020-04-01] MEDS: ATORVASTATIN 20 MG TAB PO SCH (21:57)
[2020-04-01] MEDS: **NOTE PATIENT COMMENT** MISC XX SCH (21:57)
[2020-04-01] MEDS: VANCOMYCIN HCL 1,000 MG, VIAL MATE ADAPTER 1 EACH in D5W 250 ML IV SCH ×2 (21:58→23:27)
[2020-04-01] MEDS: AMIODARONE 200 MG TAB (PACERONE) PO SCH (22:02)
[2020-04-01 23:56] LABS: ABG BASE EXCESS -5.4 (-2.0-2.0); ABG HCO3 21.5 MEQ/L (22.0-26.0); ABG O2 SATURATION 97.5 % (95.0-99.0); ABG PARTIAL PRESSURE CO2 47.9 mmHg (35.0-45.0); ABG PARTIAL PRESSURE O2 106.3 mmHg (75.0-100.0); ABG TOTAL CO2 22.9 MEQ/L (23.0-31.0); ABG pH (ARTERIAL) 7.269 UNITS (7.350-7.450)
[2020-04-02] VITALS (16 sets, daily range): BP systolic 92–150; BP diastolic 50–83
[2020-04-02] MEDS ORDERED: UNRESOLVED CLARIFICATION ENTRY XX SCH (00:01)
[2020-04-02] MEDS ORDERED: FLUBLOK(EGG FREE)(QUAD)INFLUENZA VACC 0.5ML SYRINGE 18YRS & OLDER IM SCH (01:30)
[2020-04-02] MEDS: PIPERACILLIN/TAZOBACTAM SOD 4.5 GM in D5W MINI-BAG PLUS 50 ML IV SCH ×4 (03:09→20:11)
[2020-04-02] MEDS: HEPARIN SOD (PORCINE) 5000UNITS/ML 1ML VIAL/SYRINGE SQ SCH ×3 (05:21→21:04)
[2020-04-02 05:42] LABS: ABG BASE EXCESS -1.9 (-2.0-2.0); ABG O2 SATURATION 96.1 % (95.0-99.0); ABG PARTIAL PRESSURE CO2 45.9 mmHg (35.0-45.0); ABG PARTIAL PRESSURE O2 84.7 mmHg (75.0-100.0); ABG STANDARD HCO3 22.9 MEQ/L (22.0-26.0); ABG TOTAL CO2 25.5 MEQ/L (23.0-31.0); ABG pH (ARTERIAL) 7.337 UNITS (7.350-7.450)
[2020-04-02 05:49] LABS: HEMOGLOBIN 10.1 g/dl (13.5-17.5); MEAN CORPUSCULAR HEMOGLOBIN 27.4 pg (27.0-33.0); MEAN CORPUSCULAR HGB CONC 30.6 g/dl (32.0-36.5); MEAN CORPUSCULAR VOLUME 89.4 fl (80.0-96.0); PLATELET COUNT, AUTOMATED 139 10^3/uL (150-450); RED BLOOD COUNT 3.69 10^6/uL (4.30-6.10); WHITE BLOOD COUNT 14.2 10^3/uL (4.0-10.0)
[2020-04-02 06:18] LABS: ALBUMIN 2.4 GM/DL (3.2-5.2); BILIRUBIN,TOTAL 0.4 MG/DL (0.2-1.0); C REACTIVE PROTEIN QUANTITATIV 22.1 MG/DL (0.00-0.30); CALCIUM LEVEL 7.6 MG/DL (8.8-10.2); CREATININE FOR GFR 1.33 MG/DL (0.70-1.30); GLOMERULAR FILTRATION RATE 57.6 (>49); POTASSIUM SERUM 3.8 MEQ/L (3.5-5.1); TOTAL PROTEIN 5.5 GM/DL (6.4-8.2)
--- NOTE | 2020-04-02 07:26 | ECGEPIP ---
[facility] Test Date: 2020-04-01 Pat Name: DIANA OLIVERA Department: Room: [place] [address] Gender: Male [employer] Work[employer]: MIAH : 1955 Requested By: ARABELLA Yang Order Number: [id number] Reading MD: Ford Ochoa Measurements Intervals [place] Rate: 70 P: 62 TN: 257 QRS: -38 QRSD: 104 T: 68 QT: 410 QTc: 443 Interpretive Statements SINUS RHYTHM WITH FIRST DEGREE AV BLOCK MARKED LEFT AXIS DEVIATION Nonspecific ST-T wave abnormalities subtly changed from tracing done 01-13-20 Baseline artifact Electronically Signed on 04-02-2020 7:26:07 EDT by Ford Ochoa
[2020-04-02 07:45] LABS: ATYPICAL LYMPH 9 % (0-5); LYMPHOCYTES 5 % (16-44); MONOCYTES 4 % (0-5); NEUTROPHILS 72 % (28-66); PLATELET ESTIMATE NORMAL (NORMAL)
[2020-04-02] MEDS ORDERED: NOREPINEPHRINE BITARTRATE 8 MG in D5W 492 ML IV SCH (08:30)
[2020-04-02] MEDS ORDERED: METOPROLOL SUCC (TopROL XL) 50MG **XL** TAB PO SCH (09:00)
[2020-04-02] MEDS ORDERED: amLODIPine 10 MG TAB PO SCH (09:00)
[2020-04-02] MEDS ORDERED: VANCOMYCIN HCL 750 MG, VIAL MATE ADAPTER 1 EACH in D5W 250 ML IV SCH (09:00)
[2020-04-02] MEDS: VANICREAM MOISTURIZING SKIN CREAM 113GM TUBE TOP SCH ×2 (09:13→20:12)
[2020-04-02] MEDS: MYCOLOG CREAM 15 GM (NYSTATIN/TRIAMCINOLONE) TOP SCH ×3 (09:13→20:12)
[2020-04-02] MEDS: LACTIC ACID 12% LOTION 225 GM BTL TOP SCH ×2 (09:13→20:13)
[2020-04-02] MEDS: LIDOCAINE 5% (LIDODERM) PATCH TD SCH (09:14)
[2020-04-02] MEDS: fentaNYL 100 MCG/HR PATCH TD SCH (09:15)
[2020-04-02] MEDS: LEVEMIR (INSULIN DETEMIR) 1 UNITS/0.01ML SC SCH ×2 (09:16→21:04)
[2020-04-02] MEDS: HumaLOG INSULIN (NovoLOG) PER UNIT SC SCH ×4 (09:17→20:43)
[2020-04-02] MEDS: DOCUSATE SODIUM 100 MG CAP PO SCH ×3 (09:18→20:12)
[2020-04-02] MEDS: DULoxetine 30 MG CAP (CYMBALTA) PO SCH (09:18)
[2020-04-02] MEDS: ASPIRIN 81 MG ENTERIC TAB PO SCH (09:18)
[2020-04-02] MEDS: LACTOBACILLUS ACIDOPHILUS CAP (BACID) PO SCH ×3 (09:18→20:11)
[2020-04-02] MEDS: AMIODARONE 200 MG TAB (PACERONE) PO SCH ×2 (09:18→20:11)
[2020-04-02] MEDS: SENNA 8.6 MG TAB (SENOKOT) PO SCH ×2 (09:18→20:11)
[2020-04-02] MEDS: PANTOPRAZOLE 40MG TAB (PROTONIX) PO SCH (09:18)
[2020-04-02] MEDS: MULTIVITAMINS/MINERALS THERAP 1 TAB PO SCH (09:18)
[2020-04-02] MEDS ORDERED: VANCOMYCIN HCL 500 MG in D5W MINI-BAG PLUS 100 ML IV SCH (10:00)
[2020-04-02] MEDS: SALMETEROL DISKUS 50MCG INHALER (SEREVENT) INH SCH ×2 (10:37→19:32)
--- NOTE | 2020-04-02 14:02 | IPNPDOC ---
Text Note Date of Service The patient was seen on 04/02/20. NOTE S: The patient is lying comfortable in his bed under no acute distress today . Patient doesn't remember anything about the last 24-48 hours. States that he still has brownish green productive sputum . O: GENERAL: The patient is alert oriented to time place and person is under no acute distress today saturating 90% on a Venturi mask on 35. HEENT: PERRL, atraumatic normocephalic, mucous membranes moist, no discharge from ear nose and throat, no pharyngitis CVS: Normal S1-S2 with no murmurs or rubs RESPIRATORY: Diminished bilateral breath sounds, no wheezing or crackles heard. ABDOMEN: Soft, nontender, nondistended, bowel sounds active, no organomegaly, a diffuse nonpainful nonpruritic ,maculopapular rash all over the trunk. MUSCULOSKELETAL: Range of motion in lower extremities, not able to assess. Normal range of motion in upper extremities NEUROLOGY: Patient has decreased sensations across all 4 extremities secondary to his neuropathy. Upper extremity strength 4 out of 5. Lower extremity strength not able to assess because of the presence of dressing and braces due to previous surgery on the feet. A&P: Patient is a 64-year-old male with a past history of COPD history of right lower extremity osteomyelitis status post right foot debridement on 01/03/2020 a nd right foot fusion 01/08/2020 who was sent to [facility] rehabilitation facility awaiting pins to be removed this 04/03/[address] BOYER, was found altered and lethargic with severe hypotension ,tachypnea and disorientation. After being stabilized and [facility] he was referred to [facility] for further care. He was found to have a white count of 18, lactic acid of 1.8, chest x-ray showing bilateral lower lung infiltrates right more than left. He denies any fevers or chest pain dizziness, dyspnea, shortness of breath, hemoptysis, wheezing, abdominal pain, nausea, vomiting, diarrhea. Concerning for: #1 Severe sepsis secondary to (possible pneumonia, right toe infection, underlying urinary tract infection): -Patient was initially given fluids as of now fluids are kept on hold looks well hydrated -On CVP reassessment current CVP is 11. -IV Zosyn and IV vancomycin started. MRSA screen positive. -The patient's blood pressure is stable -pro-Garett was ordered -Patient's sputum on Gram stain showed many gram-positive cocci with moderate gram-positive rods Patient's sputum culture blood culture still pending - lactic acid normalized. -Dr. BOYER was consulted who removed the pins from the patient's foot. And thought it was unlikely to be the source of infection. He suggested patient to have floating boots. #2. Right-sided nosocomial pneumonia: Patient started on IV Zosyn and IV vancomycin. Procalcitonin sent Patient weaned off all his oxygen and is breathing normally on room air COVID negative, Sputum positive for gram-positive cocci and gram-positive rods Sputum culture, blood culture pending, urine culture pending #3 acute kidney injury: Likely prerenal. Patient's creatinine today is 1.7 Continue monitoring a.m. labs. Avoid any nephrotoxic drugs Strict input and output monitoring. #4 osteomyelitis of the right foot status post surgical debridement: The patient's legs are covered in dressing and braces. Surrounding area normal color and temperature dry no wheezing. Podiatry was consulted, they removed PINS from the right foot and confirmed the wound was not infected. #Atrial fibrillation: Patient is not on the liquids because of a previous history of retroperitoneal hematoma. Chadvasc score of 4. Patient in sinus rhythm right now monitored on telemetry 24x 7. #6 UTI: Patient's urine analysis is normal as of now. Urine culture pending. Patient is already started on antibiotics #7 congestive heart failure with preserved ejection fraction as per echo done in December 2019: Patient CVP is equal to 11 We will continue to monitor fluid status, strict I and O's, Repeated weight checks. #8 COPD non-oxygen dependent: Patient requires oxygenation using a Venturi mask. #9 coronary artery disease status post stents: Patient is currently on no anticoagulation due to a history of retroperitoneal hematoma Continue aspirin and statin #10 PVD: Continue aspirin and statin #11 type 2 diabetes mellitus insulin-dependent: Sliding scale started, Consistent carbohydrate diet #12 hypertension Amlodipine and metoprolol on hold until resolution of sepsis. #. Left Femoral Head Collapse/avascular necrosis -Chronic issue, with plans for replacement once foot issues resolves -Continue oxycodone with holding parameters -Ok to continue cymbalta. -Holding fentanyl patch and gabapentin due to history of AMS and patient's ARF Patient is put on DVT prophylaxis- heparin Patient is on GI prophylaxis- on Protonix VS,Fishbone, I+O VS, Fishbone, I+O Laboratory Tests 04/01/20 19:49 04/02/20 05:20 Vital Signs Date Time Temp Pulse Resp B/P (MAP) Pulse Ox O2 Delivery O2 Flow Rate FiO2 04/02/20 09:45 25 HVNI-Vapotherm 04/02/20 09:15 89 04/02/20 08:50 30.0 60 04/02/20 08:00 97.8 85 127/83 (98) I&O- Last 24 Hours up to 6 AM 04/02/20 06:00 Intake Total 5540 ml Output Total 1475 ml Balance 4065 ml GME ATTESTATION GME ATTESTATION My faculty preceptor for this patient encounter was physically present during the encounter and was fully available. All aspects of the patient interview, examination, medical decision making process, and medical care plan development were reviewed and approved by the faculty preceptor. The faculty preceptor is a echavarria and concurs with the plan as stated in the body of this note and will attest to such by his/her cosignature. ATTENDING NOTE Pt was seen and examined by me personally with the residents/students. Agree with the above assessment plan. Zach Dumont MD Apr 02, 2020 13:17 HOLDEN AHMADI MD Apr 10, 2020 10:31
[2020-04-02] MEDS: oxyCODONE 5MG TAB PO PRN ×2 (14:47→21:05)
[2020-04-02] MEDS: VANCOMYCIN HCL 1,000 MG, VIAL MATE ADAPTER 1 EACH in D5W 250 ML IV SCH (14:48)
[2020-04-02] MEDS ORDERED: VANCOMYCIN HCL 1,000 MG, VIAL MATE ADAPTER 1 EACH in D5W 250 ML IV SCH (15:00)
[2020-04-02] MEDS: ATORVASTATIN 20 MG TAB PO SCH (20:12)
[2020-04-02] MEDS: TRIAMCINOLONE ACET 0.1% OINTMENT 15 GM EXT SCH (20:13)
[2020-04-02] MEDS: **NOTE PATIENT COMMENT** MISC XX SCH (20:13)
[2020-04-02] MEDS: LATANOPROST 0.005% OPHTH SOLN 2.5 ML OU SCH (20:13)
[2020-04-03] VITALS (9 sets, daily range): BP systolic 115–186; BP diastolic 54–86
[2020-04-03] MEDS: PIPERACILLIN/TAZOBACTAM SOD 4.5 GM in D5W MINI-BAG PLUS 50 ML IV SCH ×4 (01:06→20:48)
[2020-04-03] MEDS: VANCOMYCIN HCL 1,000 MG, VIAL MATE ADAPTER 1 EACH in D5W 250 ML IV SCH (02:30)
[2020-04-03 04:08] LABS: BASO % 0.3 % (0.0-1.0); EOS # 0.2 10^3/uL (0.0-0.5); EOS % 1.5 % (0.0-3.0); HEMOGLOBIN 9.9 g/dl (13.5-17.5); LYMPH % 8.1 % (24.0-44.0); MEAN CORPUSCULAR VOLUME 90.2 fl (80.0-96.0); MONO % 8.5 % (0.0-5.0); NEUTROPHILS # 9.5 10^3/uL (1.5-8.5); NEUTROPHILS % 80.8 % (36.0-66.0); PLATELET COUNT, AUTOMATED 126 10^3/uL (150-450); RED BLOOD COUNT 3.66 10^6/uL (4.30-6.10); WHITE BLOOD COUNT 11.7 10^3/uL (4.0-10.0)
[2020-04-03 04:39] LABS: ALBUMIN 2.3 GM/DL (3.2-5.2); ALT/SGPT 26 U/L (12-78); BILIRUBIN,TOTAL 0.4 MG/DL (0.2-1.0); BLOOD UREA NITROGEN 19 MG/DL (7-18); CALCIUM LEVEL 8.2 MG/DL (8.8-10.2); CARBON DIOXIDE LEVEL 29 MEQ/L (21-32); CHLORIDE LEVEL 104 MEQ/L (98-107); CREATININE FOR GFR 0.94 MG/DL (0.70-1.30); GLOMERULAR FILTRATION RATE > 60.0 (>49); GLUCOSE, FASTING 242 MG/DL (70-100); POTASSIUM SERUM 3.5 MEQ/L (3.5-5.1); SODIUM LEVEL 135 MEQ/L (136-145); TOTAL PROTEIN 6.1 GM/DL (6.4-8.2)
[2020-04-03] MEDS: HEPARIN SOD (PORCINE) 5000UNITS/ML 1ML VIAL/SYRINGE SQ SCH (04:59)
[2020-04-03] MEDS: SALMETEROL DISKUS 50MCG INHALER (SEREVENT) INH SCH ×2 (08:02→20:02)
[2020-04-03] MEDS: HumaLOG INSULIN (NovoLOG) PER UNIT SC SCH ×4 (08:32→20:36)
[2020-04-03] MEDS: LEVEMIR (INSULIN DETEMIR) 1 UNITS/0.01ML SC SCH ×2 (08:32→20:48)
[2020-04-03] MEDS: LACTOBACILLUS ACIDOPHILUS CAP (BACID) PO SCH ×3 (08:33→20:49)
[2020-04-03] MEDS: ASPIRIN 81 MG ENTERIC TAB PO SCH (08:34)
[2020-04-03] MEDS: oxyCODONE 5MG TAB PO PRN ×2 (08:34→15:52)
[2020-04-03] MEDS: DULoxetine 30 MG CAP (CYMBALTA) PO SCH (08:34)
[2020-04-03] MEDS: MULTIVITAMINS/MINERALS THERAP 1 TAB PO SCH (08:34)
[2020-04-03] MEDS: AMIODARONE 200 MG TAB (PACERONE) PO SCH ×2 (08:35→20:49)
[2020-04-03] MEDS: SENNA 8.6 MG TAB (SENOKOT) PO SCH ×2 (08:35→20:49)
[2020-04-03] MEDS: PANTOPRAZOLE 40MG TAB (PROTONIX) PO SCH (08:35)
[2020-04-03] MEDS: DOCUSATE SODIUM 100 MG CAP PO SCH ×3 (08:35→20:49)
[2020-04-03] MEDS: MYCOLOG CREAM 15 GM (NYSTATIN/TRIAMCINOLONE) TOP SCH ×3 (08:36→20:50)
[2020-04-03] MEDS: LIDOCAINE 5% (LIDODERM) PATCH TD SCH (08:36)
[2020-04-03] MEDS: LACTIC ACID 12% LOTION 225 GM BTL TOP SCH ×2 (08:36→20:50)
[2020-04-03] MEDS: TRIAMCINOLONE ACET 0.1% OINTMENT 15 GM EXT SCH ×2 (08:36→20:50)
[2020-04-03] MEDS: VANICREAM MOISTURIZING SKIN CREAM 113GM TUBE TOP SCH ×2 (08:37→20:51)
[2020-04-03] MEDS: APIXABAN 2.5 MG TAB (ELIQUIS) PO SCH ×2 (11:23→20:49)
--- NOTE | 2020-04-03 15:04 | IPNPDOC ---
Text Note Date of Service The patient was seen on 04/03/20. NOTE Patient was seen and examined this morning. He was in ICU at that time. States that he is feeling much better. His cough is improved. Physical examination GENERAL: The patient is alert oriented to time place and person is under no acute distress , saturating 94 on room air HEENT: PERRL, atraumatic normocephalic, mucous membranes moist, no discharge from ear nose and throat, no pharyngitis CVS: Normal S1-S2 with no murmurs or rubs RESPIRATORY: Diminished breath sounds bilaterally, no wheezing or crackles heard. ABDOMEN: Soft, nontender, nondistended, bowel sounds active, no organomegaly, a diffuse nonpainful nonpruritic ,maculopapular rash seen along the trunk MUSCULOSKELETAL: Range of motion in lower extremities, not able to assess. Normal range of motion in upper extremities NEUROLOGY: Patient has decreased sensations across all 4 extremities secondary to his neuropathy. Upper extremity strength 4 out of 5. Lower extremity strength not able to assess because of the presence of dressing and braces due to previous surgery on the feet. Labs reviewed Radiology reviewed Assessment and plan Mr. Alex is a 64-year-old male with a past history of COPD history of right lower extremity osteomyelitis status post right foot debridement on 01/03/2020 and right foot fusion 01/08/2020 who was sent to [facility] rehabilitation facility, was found altered and lethargic with severe hypotension , and alteration in mental status. From [place] ED he was referred to [facility] for further care. He was found to have a white count of 18, lact ic acid of 1.8, chest x-ray showing bilateral lower lung infiltrates right more than left. . He was admitted for severe sepsis, likely secondary to a pneumonia and initially was having blood pressures in lower 80s for which a central line was placed by the health physicist. The patient never required any pressors. He was fluid resuscitated as per the sepsis protocol and improved significantly. He has been started on broad-spectrum antibiotics with vancomycin and Zosyn, which have been tapered only to Zosyn at this time as per the cultures and sensitivities. The patient does carry a history of endocarditis as per his previous documentations along with osteoMellitus for which she has already completed antibiotic therapy for MSSA. He has significantly improved and will be transferred out of the ICU today. He was also seen by podiatry, Dr. Desai and his pins from his right foot removed on 04/02/20 and as per discussion with the hearing aide technician. They do not think that that is the source of his infection. Blood cultures have been ordered and are so far negative. He is being treated for severe sepsis, likely secondary to pneumonia and eventually once the different antibiotic are decided he has to go back to subacute rehabilitation. 1 Severe sepsis secondary to nosocomial pneumonia, right toe infection: Patient was volume resuscitated and never required any pressors. Central line has been placed on 04/02/20. Calcium is pending. Sputum culture final results still pending. The patient is pending a blood pressure of 120 systolic today. Antiemetics have been tapered down to only Zosyn as per the sputum culture sensitivities. Dr. BOYER was consulted who removed the pins from the patient's foot. And thought it was unlikely to be the source of infection. 2. Right-sided nosocomial pneumonia: Antibiotics as above. Continue following the cultures. Supplemental oxygen to maintain saturation about 92. 3. Acute kidney injury: Likely secondary to hypotension. The patient's creatinine has trended down to baseline. Initially was 2.4. Continue monitoring input, output, avoid nephrotoxic drugs. 4. History of osteomyelitis of the right foot status post surgical debridement: Pins have been removed yesterday and the wound care consult has been ordered. The patient already has finished the antibiotic course. 5. Atrial fibrillation: She has a chadvasc score of 4 and initially was an anti-cognition but because of a history of retroperitoneal hematoma that was discontinued. I had a detailed discussion with him regarding his anticoagulation and the risk of stroke. He understands and the decision has been made that he will be started on 2.5 for Eliquis. At this time and if he tolerates. He can go to the full dose. He is reluctant to start the full dose of atenolol ablation at this time. This and benefits explained in detail. 6. Congestive heart failure with preserved ejection fraction as per echo done in December 2019: Continue to monitor for respiratory status, not in any decompression at this time. Continue weight checks. 7. coronary artery disease status post stents in the remote past: Continue aspirin and statin 8. PVD: Continue aspirin and statin 9. type 2 diabetes mellitus insulin-dependent: Sliding scale started, Consistent carbohydrate diet 10. Hypertension Amlodipine and metoprolol on hold for now. 11. Left Femoral Head Collapse/avascular necrosis : Continue to monitor 12. Chronic pain syndrome :Continue oxycodone with holding parameters , Ok to continue cymbalta Holding fentanyl patch and gabapentin due to history of AMS . Possibly fentanyl should be discontinued on discharge. DVT prophylaxis. Eliquis 2.5 BID Disposition unknown at this time. will go back to subacute rehabilitation once medically optimized VS,Fishbone, I+O VS, Fishbone, I+O Laboratory Tests 04/03/20 03:55 Vital Signs Date Time Temp Pulse Resp B/P (MAP) Pulse Ox O2 Delivery O2 Flow Rate FiO2 04/03/20 12:57 97.0 87 18 124/72 (89) 93 Room Air 04/03/20 08:34 3.0 04/03/20 06:00 40 I&O- Last 24 Hours up to 6 AM 04/03/20 06:00 Intake Total 1850 ml Output Total 3050 ml Balance -1200 ml HOLDEN AHMADI MD Apr 03, 2020 15:04
[2020-04-03] MEDS: **NOTE PATIENT COMMENT** MISC XX SCH (20:49)
[2020-04-03] MEDS: ATORVASTATIN 20 MG TAB PO SCH (20:49)
[2020-04-03] MEDS: LATANOPROST 0.005% OPHTH SOLN 2.5 ML OU SCH (20:50)
[2020-04-04] VITALS: BP 163/76
[2020-04-04] MEDS: PIPERACILLIN/TAZOBACTAM SOD 4.5 GM in D5W MINI-BAG PLUS 50 ML IV SCH ×3 (02:10→13:25)
[2020-04-04 04:00] VITALS: BP 160/72
[2020-04-04] MEDS: oxyCODONE 5MG TAB PO PRN ×3 (05:41→20:43)
[2020-04-04 05:57] LABS: BASO % 0.2 % (0.0-1.0); EOS # 0.1 10^3/uL (0.0-0.5); EOS % 0.8 % (0.0-3.0); HEMOGLOBIN 11.3 g/dl (13.5-17.5); LYMPH # 0.9 10^3/uL (1.5-5.0); MEAN CORPUSCULAR HEMOGLOBIN 27.8 pg (27.0-33.0); MEAN CORPUSCULAR HGB CONC 32.3 g/dl (32.0-36.5); MONO # 1.2 10^3/uL (0.0-0.8); MONO % 9.8 % (0.0-5.0); NEUTROPHILS # 10.2 10^3/uL (1.5-8.5); NEUTROPHILS % 81.3 % (36.0-66.0); PLATELET COUNT, AUTOMATED 139 10^3/uL (150-450); RED BLOOD COUNT 4.07 10^6/uL (4.30-6.10); WHITE BLOOD COUNT 12.5 10^3/uL (4.0-10.0)
[2020-04-04 06:53] LABS: ALBUMIN 2.4 GM/DL (3.2-5.2); ALT/SGPT 24 U/L (12-78); BILIRUBIN,TOTAL 0.7 MG/DL (0.2-1.0); BLOOD UREA NITROGEN 10 MG/DL (7-18); CALCIUM LEVEL 8.7 MG/DL (8.8-10.2); CARBON DIOXIDE LEVEL 31 MEQ/L (21-32); CHLORIDE LEVEL 100 MEQ/L (98-107); CREATININE FOR GFR 0.76 MG/DL (0.70-1.30); GLOMERULAR FILTRATION RATE > 60.0 (>49); GLUCOSE, FASTING 171 MG/DL (70-100); POTASSIUM SERUM 3.5 MEQ/L (3.5-5.1); SODIUM LEVEL 135 MEQ/L (136-145)
[2020-04-04] MEDS: SALMETEROL DISKUS 50MCG INHALER (SEREVENT) INH SCH ×2 (07:51→20:09)
[2020-04-04 08:00] VITALS: BP 165/79
[2020-04-04] MEDS: DOCUSATE SODIUM 100 MG CAP PO SCH ×3 (08:29→20:42)
[2020-04-04] MEDS: MULTIVITAMINS/MINERALS THERAP 1 TAB PO SCH (08:30)
[2020-04-04] MEDS: AMIODARONE 200 MG TAB (PACERONE) PO SCH ×2 (08:30→20:42)
[2020-04-04] MEDS: ASPIRIN 81 MG ENTERIC TAB PO SCH (08:30)
[2020-04-04] MEDS: PANTOPRAZOLE 40MG TAB (PROTONIX) PO SCH (08:30)
[2020-04-04] MEDS: DULoxetine 30 MG CAP (CYMBALTA) PO SCH (08:30)
[2020-04-04] MEDS: LACTOBACILLUS ACIDOPHILUS CAP (BACID) PO SCH ×3 (08:30→20:42)
[2020-04-04] MEDS: SENNA 8.6 MG TAB (SENOKOT) PO SCH ×2 (08:30→20:42)
[2020-04-04] MEDS: METOPROLOL SUCC (TopROL XL) 50MG **XL** TAB PO SCH (08:30)
[2020-04-04] MEDS: amLODIPine 10 MG TAB PO SCH (08:31)
[2020-04-04] MEDS: HumaLOG INSULIN (NovoLOG) PER UNIT SC SCH ×4 (08:31→20:31)
[2020-04-04] MEDS: APIXABAN 2.5 MG TAB (ELIQUIS) PO SCH ×2 (08:31→20:42)
[2020-04-04] MEDS: LEVEMIR (INSULIN DETEMIR) 1 UNITS/0.01ML SC SCH ×2 (08:32→20:42)
[2020-04-04] MEDS: VANICREAM MOISTURIZING SKIN CREAM 113GM TUBE TOP SCH ×2 (08:33→20:44)
[2020-04-04] MEDS: MYCOLOG CREAM 15 GM (NYSTATIN/TRIAMCINOLONE) TOP SCH ×3 (08:33→20:44)
[2020-04-04] MEDS: LIDOCAINE 5% (LIDODERM) PATCH TD SCH (08:34)
[2020-04-04] MEDS: TRIAMCINOLONE ACET 0.1% OINTMENT 15 GM EXT SCH ×2 (08:34→20:43)
[2020-04-04] MEDS: LACTIC ACID 12% LOTION 225 GM BTL TOP SCH ×2 (08:34→20:43)
[2020-04-04 12:00] VITALS: BP 150/71
--- NOTE | 2020-04-04 14:06 | IPNPDOC ---
Text Note Date of Service The patient was seen on 04/04/20. NOTE S: The patient is lying comfortable in his bed under no acute distress today . Patient's cough has markedly reduced with no sputum production as of today morning. O: GENERAL: The patient is alert oriented to time place and person is under no acute distress today saturating 96% on room air HEENT: PERRL, atraumatic normocephalic, mucous membranes moist, no discharge from ear nose and throat, no pharyngitis CVS: Normal S1-S2 with no murmurs or rubs RESPIRATORY: Normal breath sounds, no wheezing or crackles heard. ABDOMEN: Soft, nontender, nondistended, bowel sounds active, no organomegaly, a diffuse nonpainful nonpruritic ,maculopapular rash improved markedly. MUSCULOSKELETAL: Range of motion in lower extremities, not able to assess. Normal range of motion in upper extremities NEUROLOGY: Patient has decreased sensations across all 4 extremities secondary to his neuropathy. Upper extremity strength 4 out of 5. Lower extremity strength not able to assess because of the presence of dressing and braces due to previous surgery on the feet. A&P: Patient is a 64-year-old male with a past history of COPD history of right lower extremity osteomyelitis status post right foot debridement on 01/03/2020 and right foot fusion 01/08/2020 who was sent to [facility] rehabilitation facility awaiting pins to be removed this 04/03/[address] BOYER, was found altered and lethargic with severe hypotension ,tachypnea and disorientation. After being stabilized and [place] [facility] he was referred to [facility] for further care. He was found to have a white count of 18, lactic acid of 1.8, chest x-ray showing bilateral lower lung infiltrates ri ght more than left. He denies any fevers or chest pain dizziness, dyspnea, shortness of breath, hemoptysis, wheezing, abdominal pain, nausea, vomiting, diarrhea. Concerning for: #1 Severe sepsis secondary to (possible pneumonia, underlying urinary tract infection): -Patient was initially given fluids as of now fluids are kept on hold looks well hydrated -On CVP reassessment current CVP is 11. -IV Zosyn changed to IV Levaquin 500 mg daily as per culture and sensitivities for confirmed sputum culture showing Proteus mirabilis. -The patient's blood pressure is stable -pro-Garett was ordered -Patient's sputum on Gram stain showed many gram-positive cocci with moderate gram-positive rods - lactic acid normalized. -Dr. BOYER was consulted who removed the pins from the patient's foot. And thought it was unlikely to be the source of infection. He suggested patient's to have floating boots. #2. Right-sided nosocomial pneumonia: Patient antibiotic changed to IV Levaquin 500 mg daily Procalcitonin sent Patient weaned off all his oxygen and is breathing normally on room air COVID negative, Sputum positive for gram-positive cocci and gram-positive rods Sputum culture shows Proteus mirabilis, blood culture pending, urine culture pending #3 acute kidney injury: Likely prerenal.Resolved. Patient's creatinine today is 0.76. Continue monitoring a.m. labs. Avoid any nephrotoxic drugs Strict input and output monitoring. #4 osteomyelitis of the right foot status post surgical debridement: The patient's legs are covered in dressing . Surrounding area normal color and temperature dry no wheezing. Podiatry was consulted, they removed PINS from the right foot and confirmed the wound was not infected. #Atrial fibrillation: Patient is currently on 2.5 g of ELIQUIS. Chadvasc score of 4. Patient in sinus rhythm right now monitored on telemetry 24x 7. #6 UTI: Patient's urine analysis is normal as of now. Urine culture pending. Patient is already started on antibiotics #7 congestive heart failure with preserved ejection fraction as per echo done in December 2019: Patient CVP is equal to 11 We will continue to monitor fluid status, strict I and O's, Repeated weight checks. #8 COPD non-oxygen dependent: Continue home medications #9 coronary artery disease status post stents: Patient is currently on 2.5 g of ELIQUIS. Continue aspirin and statin #10 PVD: Patient is currently on 2.5 g of ELIQUIS. Continue aspirin and statin #11 type 2 diabetes mellitus insulin-dependent: Sliding scale started, Consistent carbohydrate diet #12 hypertension Amlodipine and metoprolol on hold until resolution of sepsis. #. Left Femoral Head Collapse/avascular necrosis -Chronic issue, with plans for replacement once foot issues resolves -Continue oxycodone with holding parameters -Ok to continue cymbalta -Resume fentanyl patch and gabapentin. Patient is put on DVT prophylaxis- heparin Patient is on GI prophylaxis- on Protonix VS,Fishbone, I+O VS, Fishbone, I+O Laboratory Tests 04/04/20 05:40 Vital Signs Date Time Temp Pulse Resp B/P (MAP) Pulse Ox O2 Delivery O2 Flow Rate FiO2 04/04/20 13:13 20 Room Air 04/04/20 12:00 97.3 72 150/71 (97) 94 04/03/20 08:34 3.0 04/03/20 06:00 40 I&O- Last 24 Hours up to 6 AM 04/04/20 06:00 Intake Total 650 ml Output Total 3600 ml Balance -2950 ml GME ATTESTATION GME ATTESTATION My faculty preceptor for this patient encounter was physically present during the encounter and was fully available. All aspects of the patient interview, examination, medical decision making process, and medical care plan development were reviewed and approved by the faculty preceptor. The faculty preceptor is aware and concurs with the plan as stated in the body of this note and will attest to such by his/her cosignature. ATTENDING NOTE Patient seen and examined independently. Agree with resident's note. Zach Dumont MD Apr 04, 2020 14:06 VIKTORIYA GERARDO MD Apr 28, 2020 14:24
[2020-04-04 16:00] VITALS: BP 151/76
[2020-04-04] MEDS ORDERED: SLF 3 ML SYR IV PRN (16:00)
[2020-04-04] MEDS: LevoFLOXacin IV 500 MG in IV 1 EA IV SCH (16:58)
[2020-04-04 20:00] VITALS: BP 166/78
[2020-04-04] MEDS: ATORVASTATIN 20 MG TAB PO SCH (20:42)
[2020-04-04] MEDS: LATANOPROST 0.005% OPHTH SOLN 2.5 ML OU SCH (20:43)
[2020-04-04] MEDS: SLF 3 ML SYR IV SCH (20:44)
[2020-04-04] MEDS: **NOTE PATIENT COMMENT** MISC XX SCH (20:44)
[2020-04-05] VITALS: BP 138/64
[2020-04-05] MEDS: oxyCODONE 5MG TAB PO PRN ×4 (02:45→22:21)
[2020-04-05 04:00] VITALS: BP 150/78
[2020-04-05] MEDS: SLF 3 ML SYR IV SCH ×3 (05:24→21:10)
[2020-04-05 05:29] LABS: BASO % 0.2 % (0.0-1.0); EOS # 0.1 10^3/uL (0.0-0.5); EOS % 0.8 % (0.0-3.0); HEMATOCRIT 36.4 % (42.0-52.0); HEMOGLOBIN 11.9 g/dl (13.5-17.5); LYMPH # 0.9 10^3/uL (1.5-5.0); LYMPH % 7.1 % (24.0-44.0); MEAN CORPUSCULAR HEMOGLOBIN 27.5 pg (27.0-33.0); MEAN CORPUSCULAR HGB CONC 32.7 g/dl (32.0-36.5); MEAN CORPUSCULAR VOLUME 84.3 fl (80.0-96.0); MONO # 1.5 10^3/uL (0.0-0.8); MONO % 11.2 % (0.0-5.0); NEUTROPHILS # 10.4 10^3/uL (1.5-8.5); NEUTROPHILS % 80.2 % (36.0-66.0); PLATELET COUNT, AUTOMATED 171 10^3/uL (150-450); RED BLOOD COUNT 4.32 10^6/uL (4.30-6.10)
[2020-04-05 05:44] LABS: ALBUMIN 2.3 GM/DL (3.2-5.2); ALT/SGPT 23 U/L (12-78); BILIRUBIN,TOTAL 0.5 MG/DL (0.2-1.0); BLOOD UREA NITROGEN 13 MG/DL (7-18); CALCIUM LEVEL 9.1 MG/DL (8.8-10.2); CARBON DIOXIDE LEVEL 30 MEQ/L (21-32); CHLORIDE LEVEL 99 MEQ/L (98-107); CREATININE FOR GFR 0.78 MG/DL (0.70-1.30); GLOMERULAR FILTRATION RATE > 60.0 (>49); GLUCOSE, FASTING 220 MG/DL (70-100); POTASSIUM SERUM 3.4 MEQ/L (3.5-5.1); SODIUM LEVEL 133 MEQ/L (136-145); TOTAL PROTEIN 7.2 GM/DL (6.4-8.2)
[2020-04-05] MEDS: SALMETEROL DISKUS 50MCG INHALER (SEREVENT) INH SCH ×2 (07:14→19:39)
[2020-04-05] MEDS: DOCUSATE SODIUM 100 MG CAP PO SCH ×3 (07:53→21:09)
[2020-04-05] MEDS: ASPIRIN 81 MG ENTERIC TAB PO SCH (07:53)
[2020-04-05] MEDS: DULoxetine 30 MG CAP (CYMBALTA) PO SCH (07:54)
[2020-04-05] MEDS: AMIODARONE 200 MG TAB (PACERONE) PO SCH ×2 (07:54→21:09)
[2020-04-05] MEDS: SENNA 8.6 MG TAB (SENOKOT) PO SCH ×2 (07:54→21:09)
[2020-04-05] MEDS: APIXABAN 2.5 MG TAB (ELIQUIS) PO SCH ×2 (07:54→21:08)
[2020-04-05] MEDS: LACTOBACILLUS ACIDOPHILUS CAP (BACID) PO SCH ×3 (07:54→21:08)
[2020-04-05] MEDS: MULTIVITAMINS/MINERALS THERAP 1 TAB PO SCH (07:54)
[2020-04-05] MEDS: PANTOPRAZOLE 40MG TAB (PROTONIX) PO SCH (07:54)
[2020-04-05] MEDS: METOPROLOL SUCC (TopROL XL) 50MG **XL** TAB PO SCH (07:55)
[2020-04-05] MEDS: LEVEMIR (INSULIN DETEMIR) 1 UNITS/0.01ML SC SCH ×2 (07:55→21:08)
[2020-04-05] MEDS: amLODIPine 10 MG TAB PO SCH (07:55)
[2020-04-05] MEDS: LIDOCAINE 5% (LIDODERM) PATCH TD SCH (07:56)
[2020-04-05] MEDS: HumaLOG INSULIN (NovoLOG) PER UNIT SC SCH ×4 (07:56→20:57)
[2020-04-05] MEDS: MYCOLOG CREAM 15 GM (NYSTATIN/TRIAMCINOLONE) TOP SCH ×3 (07:57→21:09)
[2020-04-05] MEDS: VANICREAM MOISTURIZING SKIN CREAM 113GM TUBE TOP SCH ×2 (07:57→21:09)
[2020-04-05] MEDS: TRIAMCINOLONE ACET 0.1% OINTMENT 15 GM EXT SCH ×2 (07:57→21:09)
[2020-04-05] MEDS: LACTIC ACID 12% LOTION 225 GM BTL TOP SCH ×2 (07:57→21:09)
[2020-04-05] MEDS: fentaNYL 100 MCG/HR PATCH TD SCH (07:58)
[2020-04-05 08:00] VITALS: BP 120/76
[2020-04-05 12:00] VITALS: BP 158/76
[2020-04-05 16:00] VITALS: BP 155/77
[2020-04-05] MEDS: LevoFLOXacin IV 500 MG in IV 1 EA IV SCH (17:06)
[2020-04-05 20:00] VITALS: BP 128/64
[2020-04-05] MEDS: ATORVASTATIN 20 MG TAB PO SCH (21:08)
[2020-04-05] MEDS: LATANOPROST 0.005% OPHTH SOLN 2.5 ML OU SCH (21:09)
[2020-04-05] MEDS: **NOTE PATIENT COMMENT** MISC XX SCH (21:10)
[2020-04-06] VITALS: BP 123/64
[2020-04-06 04:00] VITALS: BP 146/76
[2020-04-06] MEDS: oxyCODONE 5MG TAB PO PRN ×3 (04:42→17:58)
[2020-04-06 05:07] LABS: BASO % 0.4 % (0.0-1.0); EOS # 0.4 10^3/uL (0.0-0.5); EOS % 3.2 % (0.0-3.0); HEMATOCRIT 38.2 % (42.0-52.0); HEMOGLOBIN 12.2 g/dl (13.5-17.5); LYMPH # 1.6 10^3/uL (1.5-5.0); LYMPH % 14.5 % (24.0-44.0); MEAN CORPUSCULAR HEMOGLOBIN 27.1 pg (27.0-33.0); MEAN CORPUSCULAR HGB CONC 31.9 g/dl (32.0-36.5); MEAN CORPUSCULAR VOLUME 84.7 fl (80.0-96.0); MONO # 1.3 10^3/uL (0.0-0.8); MONO % 11.8 % (0.0-5.0); NEUTROPHILS # 7.7 10^3/uL (1.5-8.5); NEUTROPHILS % 69.5 % (36.0-66.0); PLATELET COUNT, AUTOMATED 196 10^3/uL (150-450); RED BLOOD COUNT 4.51 10^6/uL (4.30-6.10); WHITE BLOOD COUNT 11.1 10^3/uL (4.0-10.0)
[2020-04-06] MEDS: SLF 3 ML SYR IV SCH ×3 (05:14→22:12)
[2020-04-06 05:57] LABS: ALBUMIN 2.3 GM/DL (3.2-5.2); ALT/SGPT 21 U/L (12-78); BILIRUBIN,TOTAL 0.5 MG/DL (0.2-1.0); BLOOD UREA NITROGEN 18 MG/DL (7-18); CALCIUM LEVEL 9.1 MG/DL (8.8-10.2); CARBON DIOXIDE LEVEL 30 MEQ/L (21-32); CHLORIDE LEVEL 101 MEQ/L (98-107); CREATININE FOR GFR 0.79 MG/DL (0.70-1.30); GLOMERULAR FILTRATION RATE > 60.0 (>49); GLUCOSE, FASTING 85 MG/DL (70-100); POTASSIUM SERUM 3.2 MEQ/L (3.5-5.1); SODIUM LEVEL 134 MEQ/L (136-145); TOTAL PROTEIN 7.4 GM/DL (6.4-8.2)
[2020-04-06] MEDS: HumaLOG INSULIN (NovoLOG) PER UNIT SC SCH ×4 (07:30→21:00)
[2020-04-06 08:00] VITALS: BP 133/67
[2020-04-06] MEDS: SALMETEROL DISKUS 50MCG INHALER (SEREVENT) INH SCH ×3 (08:01→20:26)
--- NOTE | 2020-04-06 08:11 | ECHO ---
DATE OF PROCEDURE: 04/02/2020 Age: 64 Gender: Male Height: 180 cm Weight: 93 kg REFERRING PHYSICIAN: Pilar Parson MD INDICATION: Infective endocarditis, unspecified. MEASUREMENTS: 2D Measurements: Intraventricular septum 0.96 cm Posterior wall 1.06 cm Left ventricle diastole 5.3 cm Aortic root 2.9 cm Left atrium 4.2 cm Left atrial volume index 21 cm Inferior vena cava 1.9 cm Doppler Measurements: Mild aortic stenosis No aortic regurgitation Aortic valve velocity 277 cm/s LVOT velocity 125 cm/s Peak aortic valve gradient 31 mmHg Mean aortic valve gradient 16 mmHg Aortic valve VTI 59.6 cm LVOT VTI 27.3 cm Very mild mitral regurgitation No mitral stenosis Mitral E velocity 104 cm/s Mitral A velocity 105 cm/s Mitral deceleration time 194 msec No tricuspid regurgitation No pulmonic regurgitation MITRAL ANNULAR TISSUE DOPPLER E prime lateral 12.0 cm/s, E prime septal 9.9 cm/s DESCRIPTION: Rhythm was sinus. This was a moderately technically difficult echocardiogram. This was a 2D, M-mode, color flow Doppler, and pulsed wave Doppler examination including mitral annular tissue Doppler. CONCLUSIONS: 1. No vegetation is apparent; however, this was a moderately technically difficult echocardiogram. 2. Severe focal thickening and focal calcific deposits of 3-cuspid aortic valve. Mild reduction in aortic cusp mobility. Mild aortic stenosis. No aortic regurgitation. 3. Mild-moderate mitral annular calcification. Very mild mitral regurgitation. No mitral stenosis. 4. Normal left ventricle size and wall thickness. Normal regional LV wall motion and wall thickening. Normal LV systolic function. LVEF 65% by visual estimate. Normal LV diastolic function. 5. No pericardial effusion. 6. Moderately technically difficult echocardiogram Doppler. 7. Otherwise normal appearing echocardiogram Doppler findings. [facility]
[2020-04-06] MEDS: LEVEMIR (INSULIN DETEMIR) 1 UNITS/0.01ML SC SCH ×2 (08:20→22:11)
[2020-04-06] MEDS: LIDOCAINE 5% (LIDODERM) PATCH TD SCH (08:21)
[2020-04-06] MEDS: LACTOBACILLUS ACIDOPHILUS CAP (BACID) PO SCH ×3 (08:21→22:09)
[2020-04-06] MEDS: PANTOPRAZOLE 40MG TAB (PROTONIX) PO SCH (08:21)
[2020-04-06] MEDS: DULoxetine 30 MG CAP (CYMBALTA) PO SCH (08:21)
[2020-04-06] MEDS: APIXABAN 2.5 MG TAB (ELIQUIS) PO SCH ×2 (08:21→22:10)
[2020-04-06] MEDS: DOCUSATE SODIUM 100 MG CAP PO SCH ×3 (08:22→22:10)
[2020-04-06] MEDS: MULTIVITAMINS/MINERALS THERAP 1 TAB PO SCH (08:22)
[2020-04-06] MEDS: amLODIPine 10 MG TAB PO SCH (08:22)
[2020-04-06] MEDS: ASPIRIN 81 MG ENTERIC TAB PO SCH (08:22)
[2020-04-06] MEDS: SENNA 8.6 MG TAB (SENOKOT) PO SCH ×2 (08:23→22:10)
[2020-04-06] MEDS: METOPROLOL SUCC (TopROL XL) 50MG **XL** TAB PO SCH (08:23)
[2020-04-06] MEDS: AMIODARONE 200 MG TAB (PACERONE) PO SCH ×2 (08:23→22:10)
[2020-04-06] MEDS: TRIAMCINOLONE ACET 0.1% OINTMENT 15 GM EXT SCH ×2 (08:23→21:00)
[2020-04-06] MEDS: LACTIC ACID 12% LOTION 225 GM BTL TOP SCH ×2 (08:24→21:00)
[2020-04-06] MEDS: VANICREAM MOISTURIZING SKIN CREAM 113GM TUBE TOP SCH ×2 (08:24→21:00)
[2020-04-06] MEDS: MYCOLOG CREAM 15 GM (NYSTATIN/TRIAMCINOLONE) TOP SCH ×3 (08:24→21:00)
--- NOTE | 2020-04-06 08:24 | IPNPDOC ---
Text Note Date of Service The patient was seen on 04/05/20. NOTE S: Patient seen and examined at bedside. No new medical complaints. No acute overnight events reported. O: GENERAL: NAD HEENT: NC/AT CVS: +S1S2, RRR RESPIRATORY: CTA B/L ABDOMEN: Soft, NT, ND, +BS A&P: 64 yo male PMHx COPD, RLE OM s/p debridement, sent from [place] for AMS, concerns for severe sepsis, PNA. #Severe sepsis - secondary to PNA, UTI? - IV Zosyn transitioned to IV Levaquin as per cultures/sensitivities - lactic acid normalized. -Dr. BOYER was consulted who removed the pins from the patient's foot. And thought it was unlikely to be the source of infection. He suggested patient's to have floating boots. #nosocomial pneumonia: - as above - Patient antibiotic changed to IV Levaquin 500 mg daily Patient weaned off oxygen and saturating well on room air - COVID negative, #MEHUL Likely prerenal.Resolved. #OM right foot s/p debridement The patient's legs are covered in dressing . Surrounding area normal color and temperature dry no wheezing. Podiatry was consulted, they removed PINS from the right foot and confirmed the wound did not appear infected. #afib - rate controlled - metoprolol, amiodarone - a/c with eliquis - Chadvasc score of 4. - no events on tele #UTI - as above #HFpEF - compensated #COPD - stable #CAD/PCI - continue home meds - metoprolol/asa/statin - no events on tele #PVD - asa/statin/eliquis #IDDM #HTN - norvasc/metoprolol #Left Femoral Head Collapse/avascular necrosis -Chronic issue, with plans for replacement once foot issues resolves -Continue oxycodone with holding parameters -Resume fentanyl patch, lidocaine patch #DVT prophylaxis - as above on Eliquis VS,Fishbone, I+O VS, Fishbone, I+O Laboratory Tests 04/06/20 04:53 Vital Signs Date Time Temp Pulse Resp B/P (MAP) Pulse Ox O2 Delivery O2 Flow Rate FiO2 04/06/20 05:12 17 04/06/20 04:00 97.2 80 146/76 (99) 92 Room Air 04/03/20 08:34 3.0 04/03/20 06:00 40 I&O- Last 24 Hours up to 6 AM 04/06/20 06:00 Intake Total 580 ml Output Total 825 ml Balance -245 ml VIKTORIYA GERARDO MD Apr 06, 2020 08:24
[2020-04-06 09:18] LABS: MAGNESIUM LEVEL 1.6 MG/DL (1.8-2.4)
[2020-04-06] MEDS ORDERED: POTASSIUM CHLORIDE 10 MEQ SR TABLET PO ONE (11:00)
[2020-04-06] MEDS: LevoFLOXacin 500 MG TABLET PO SCH (11:13)
[2020-04-06] MEDS: MAG SULF 1GM/100ML (MAG RUN) 1 GM in IV 1 EA IV SCH ×2 (11:14→12:19)
[2020-04-06 12:00] VITALS: BP 132/70
[2020-04-06] MEDS: KCL 10MEQ/100ML SWI (KRUN) 10 MEQ in IV 1 EA IV SCH ×2 (13:27→14:24)
[2020-04-06 16:08] LABS: BODY FLUID CULTURE Not indicated. (.); LEGIONELLA ANTIGEN URINE Negative (Negative); ORGANISM ID Not indicated. (.); SPECIMEN SOURCE Urine (.); URINE STREP PNEUMONIAE ANTIGEN Negative (Negative)
[2020-04-06 18:30] VITALS: BP 137/73
[2020-04-06] MEDS: DICLOXACILLIN 250 MG CAP PO SCH (18:59)
[2020-04-06 20:04] LABS: MAGNESIUM LEVEL 1.9 MG/DL (1.8-2.4)
[2020-04-06] MEDS: **NOTE PATIENT COMMENT** MISC XX SCH (21:00)
[2020-04-06] MEDS: LATANOPROST 0.005% OPHTH SOLN 2.5 ML OU SCH (21:00)
--- NOTE | 2020-04-06 21:54 | IPNPDOC ---
Date Seen The patient was seen on 04/06/20. Progress Note SUBJECTIVE: Gopal is a 64yo male who was seen and examined this morning by the hospitalist service while lying in bed. Other than some trouble sleeping, he reports no issues/adverse events overnight. He denies any current fevers, chills, night sweats, chest pain, chest pressure, palpitations, sob, n/v/d, or abdominal pain. OBJECTIVE PHYSICAL EXAMINATION: VITAL SIGNS: Please see below. GENERAL: Pleasant male lying in bed. A & O x3. NAD. HEENT: NC, AT. PERRLA. Moderately dry MM w/ no pharyngeal erythema or exudate. CARDIOVASCULAR: HRRR with normal s1 and s2. No m/r/g appreciated. RESPIRATORY: Decreased tidal volume with moderate crackles appreciated b/l. Breathing room air. Symmetric chest expansion. ABDOMINAL: Soft, NT with multiple hernias (umbilical and ventral) appreciated. No rigidity. EXTREMITIES: Extensive dressings over b/l LEs with b/l foot/heel floating boots. There are dermatologic signs of chronic hyperglycemia of b/l LEs. Surrounding area of dressing is without warmth or erythema and dry with nl temperature NEUROLOGICAL: Decreased sensations of b/l LEs, right worse than left PSYCHOLOGICAL: Mood and affect appear appropriate LABORATORY DATA, IMAGING STUDIES, MICROBIOLOGY: Please see below. ASSESSMENT AND PLAN: 64yo male with h/o RLE OM s/p debridement, COPD, afib on eliquis, htn, HFpEF, CKD, and poorly controlled IDDM who presented on 04/01 from [place] ED with AMS and hypotension and was admitted for severe sepsis 2/2 PNA #Bilateral PNA -s/p severe sepsis on 04/01 presentation -pt breathing room air with improving WBC and CRP -Initial IV Zosyn transitioned to IV levaquin yesterday; *Switching to PO levaquin today as bioavailability is same for IV vs PO -Sputum cx positive for proteus and klebsiella; both sensitive to levaquin -lactic acid previously normalized -made med/surg status today #Right foot osteomyelitis s/p debridement -Podiatry (Dr. Romano) has been consulted and subsequently removed pins from right foot. Podiatry states wound was not infected and not the cause of presenting sepsis -Pt remains non-weight bearing per podiatry #Electrolyte abnormalities -hypokalemic (3.2) and hypomagnesemic (1.6) -supplemented both K and Mg with repeat levels to be checked in afternoon #Atrial fibrillation -sinus rhythm with controlled rate this morning on tele with no adverse events overnight logged -on eliquis 2.5 mg bid for a/c, along with metoprolol and amiodarone for rate control -taken off tele today #Hypotension 2/2 sepsis, resolved -pt responded to sepsis protocol IVF bolus on presentation without need of vasop ressors -removing triple lumen that was placed in event pressors were needed -has resumed home amlodipine and metoprolol #COPD, non-O2 dependent -overallsaturating well on room air after being weaned off oxygen #HFpEF, per December 2019 echo -compensated on exam today -c/w I and O monitoring, fluid status, and weight checks #CAD s/p stent placement -c/w home high-dose lipitor, asa, and metoprolol -no events overnight on telemetry #PVD -on the aforementioned eliquis; c/w asa and statin #IDDM with neuropathy -c/w SSI plus levemir -consistent carb diet #Left Femoral Head Collapse/avascular necrosis -Chronic issue, with plans for replacement once foot issues resolves -Continue oxycodone with holding parameters -Resume fentanyl patch and gabapentin. #DVT prophylaxis: we are c/w pt's home eliquis dose for afib DISPOSITION: Due to sustained adequate BPs and improving CRP and WBC, along with clinical respiratory status, pt was transferred to medical/surgical designation today from PCU. VS, I&O, 24H, [facility] Vital Signs/I&O Vital Signs Date Time Temp Pulse Resp B/P (MAP) Pulse Ox O2 Delivery O2 Flow Rate FiO2 04/06/20 18:30 97.9 80 19 137/73 (94) 93 Room Air 04/03/20 08:34 3.0 04/03/20 06:00 40 I&O- Last 24 Hours up to 6 AM 04/06/20 06:00 Intake Total 580 ml Output Total 825 ml Balance -245 ml Laboratory Data 24H LABS Laboratory Tests 2 04/06/20 04:53: Immature Granulocyte % (Auto) 0.6, Neutrophils (%) (Auto) 69.5H, Lymphocytes (%) (Auto) 14.5L, Monocytes (%) (Auto) 11.8H, Eosinophils (%) (Auto) 3.2H, Basophils (%) (Auto) 0.4, Neutrophils # (Auto) 7.7, Lymphocytes # (Auto) 1.6, Monocytes # (Auto) 1.3H, Eosinophils # (Auto) 0.4, Basophils # (Auto) 0.0, Nucleated Red Blood Cells % (auto) 0.0, Anion Gap 3L, Glomerular Filtration Rate > 60.0, Calcium Level 9.1, Magnesium Level 1.6L, Total Bilirubin 0.5, Aspartate Amino Transf (AST/SGOT) 9, Alanine Aminotransferase (ALT/SGPT) 21, Alkaline Phosphatase 78, C-Reactive Protein, Quantitative 13.60H, Total Protein 7.4, Albumin 2.3L, Albumin/Globulin Ratio 0.5 04/06/20 11:44: Bedside Glucose (Misc Panel) 230H 04/06/20 17:15: Bedside Glucose (Misc Panel) 185H 04/06/20 19:20: Magnesium Level 1.9 04/06/20 20:45: Bedside Glucose (Misc Panel) 139H CBC/BMP Laboratory Tests 04/06/20 04:53 04/06/20 19:20 Microbiology Microbiology 04/01/20 Gram Stain - Final, Complete 04/01/20 Sputum Culture - Final, Complete Proteus Mirabilis Klebsiella Pneumoniae 04/01/20 Blood Culture - Final, Complete NO GROWTH AFTER 5 DAYS CECI OSEGUERA D.O. Apr 06, 2020 21:54
[2020-04-06 22:00] VITALS: BP 135/69
[2020-04-06] MEDS: ATORVASTATIN 20 MG TAB PO SCH (22:10)
[2020-04-07] MEDS: DICLOXACILLIN 250 MG CAP PO SCH ×3 (00:17→12:01)
[2020-04-07] MEDS: oxyCODONE 5MG TAB PO PRN ×2 (00:18→15:47)
[2020-04-07] MEDS: LevoFLOXacin 500 MG TABLET PO SCH (05:37)
[2020-04-07] MEDS: SLF 3 ML SYR IV SCH (05:37)
[2020-04-07 06:00] VITALS: BP 142/70
[2020-04-07] MEDS: HumaLOG INSULIN (NovoLOG) PER UNIT SC SCH ×2 (07:30→12:01)
[2020-04-07 08:58] LABS: ALBUMIN 2.4 GM/DL (3.2-5.2); ALT/SGPT 18 U/L (12-78); BILIRUBIN,TOTAL 0.5 MG/DL (0.2-1.0); BLOOD UREA NITROGEN 19 MG/DL (7-18); CARBON DIOXIDE LEVEL 30 MEQ/L (21-32); CHLORIDE LEVEL 102 MEQ/L (98-107); CREATININE FOR GFR 0.82 MG/DL (0.70-1.30); GLOMERULAR FILTRATION RATE > 60.0 (>49); GLUCOSE, FASTING 82 MG/DL (70-100); MAGNESIUM LEVEL 1.8 MG/DL (1.8-2.4); POTASSIUM SERUM 4.2 MEQ/L (3.5-5.1); SODIUM LEVEL 137 MEQ/L (136-145); TOTAL PROTEIN 6.7 GM/DL (6.4-8.2)
[2020-04-07 09:00] LABS: BASO # 0.1 10^3/uL (0.0-0.2); BASO % 0.7 % (0.0-1.0); EOS # 0.5 10^3/uL (0.0-0.5); EOS % 4.7 % (0.0-3.0); HEMATOCRIT 40.5 % (42.0-52.0); HEMOGLOBIN 12.9 g/dl (13.5-17.5); LYMPH # 1.4 10^3/uL (1.5-5.0); LYMPH % 13.2 % (24.0-44.0); MEAN CORPUSCULAR HEMOGLOBIN 27.2 pg (27.0-33.0); MEAN CORPUSCULAR HGB CONC 31.9 g/dl (32.0-36.5); MEAN CORPUSCULAR VOLUME 85.4 fl (80.0-96.0); MONO # 1.1 10^3/uL (0.0-0.8); MONO % 10.5 % (0.0-5.0); NEUTROPHILS # 7.1 10^3/uL (1.5-8.5); NEUTROPHILS % 69.4 % (36.0-66.0); PLATELET COUNT, AUTOMATED 232 10^3/uL (150-450); RED BLOOD COUNT 4.74 10^6/uL (4.30-6.10); WHITE BLOOD COUNT 10.2 10^3/uL (4.0-10.0)
[2020-04-07] MEDS: TRIAMCINOLONE ACET 0.1% OINTMENT 15 GM EXT SCH (09:00)
[2020-04-07] MEDS: MULTIVITAMINS/MINERALS THERAP 1 TAB PO SCH (09:10)
[2020-04-07] MEDS: ASPIRIN 81 MG ENTERIC TAB PO SCH (09:10)
[2020-04-07] MEDS: LACTOBACILLUS ACIDOPHILUS CAP (BACID) PO SCH (09:10)
[2020-04-07] MEDS: AMIODARONE 200 MG TAB (PACERONE) PO SCH (09:10)
[2020-04-07] MEDS: DULoxetine 30 MG CAP (CYMBALTA) PO SCH (09:11)
[2020-04-07 09:12] VITALS: BP 129/69
[2020-04-07] MEDS: METOPROLOL SUCC (TopROL XL) 50MG **XL** TAB PO SCH (09:12)
[2020-04-07] MEDS: APIXABAN 2.5 MG TAB (ELIQUIS) PO SCH (09:13)
[2020-04-07] MEDS: amLODIPine 10 MG TAB PO SCH (09:13)
[2020-04-07] MEDS: SENNA 8.6 MG TAB (SENOKOT) PO SCH (09:13)
[2020-04-07] MEDS: DOCUSATE SODIUM 100 MG CAP PO SCH (09:13)
[2020-04-07] MEDS: PANTOPRAZOLE 40MG TAB (PROTONIX) PO SCH (09:13)
[2020-04-07] MEDS: LEVEMIR (INSULIN DETEMIR) 1 UNITS/0.01ML SC SCH (09:14)
[2020-04-07] MEDS: LIDOCAINE 5% (LIDODERM) PATCH TD SCH (09:14)
[2020-04-07] MEDS: LACTIC ACID 12% LOTION 225 GM BTL TOP SCH (09:16)
[2020-04-07] MEDS: VANICREAM MOISTURIZING SKIN CREAM 113GM TUBE TOP SCH (09:17)
[2020-04-07] MEDS: MYCOLOG CREAM 15 GM (NYSTATIN/TRIAMCINOLONE) TOP SCH (09:17)
[2020-04-07] MEDS ORDERED: DICL25CA PO (15:05)
[2020-04-07] MEDS ORDERED: ELIQ2.5T PO (15:05)
--- NOTE | 2020-04-07 19:56 | DS.PDOC ---
Discharge Summary General Date of Admission Apr 01, 2020 at 17:56 Date of Discharge April 07, 2020 Attending Physician: VADIM NUÑEZ MD Specialist/Consultants Involve: MAHAMED BOYER DPM Specialist/Consultants Involve Dr. Marvin Hancock, Infectious Disease Discharge Summary PROCEDURES PERFORMED DURING STAY: None ADMITTING DIAGNOSES: Sepsis DISCHARGE DIAGNOSES: Status post severe sepsis Bilateral PNA Right foot osteomyelitis status post debridement Hypokalemia Hypomagnesemia Atrial fibrillation, on Eliquis Hypotension secondary to sepsis COPD, not oxygen dependent Chronic kidney disease Poorly controlled insulin-dependent diabetes mellitus Heart failure with preserved ejection fraction COMPLICATIONS/CHIEF COMPLAINT: Altered mental status and lethargy HISTORY OF PRESENT ILLNESS: oGpal is a 64-year-old male who was transferred to [facility] emergency department from the [place] emergency department with a diagnosis of severe sepsis. Per [place] records, he was lethargic and altered with a prescribed fentanyl patch on him when he was found at [facility] He was given Narcan twice, once by the rehabilitation staff and a second time by EMS when they arrive), with subsequent improvement in his mental status. He then arrived to the [place] ED with a Meghna coma score 15, hypertensive (98/59), tachypneic, and disoriented. He got a third also nor can, in addition to a normal saline 500 mL bolus, and then initiation of normal saline IV fluid hydration 150 and 100 every 4 hours. After the third Narcan administration, twitching of his upper body was noted and he was subsequently given 1 mg IV of Ativan. After the Ativan, there was improvement his symptoms along with his blood pressure in his normal saline IV fluid rate was decreased to 125 mL per hour. One hour after his ED arrival, the IV fluids were discontinued after he had received 700 mL total of fluids. He was then given a dose of 40 mg IV furosemide, IV antibiotics in the form of Zosyn were initiated, and a fourth dose of Narcan was given. His blood pressure continued to decline to the point that 45 minutes after the IV Lasix were given, IV fluids were restarted at 125 mL per hour. After the reinitiation of the IV fluids, his blood pressure responded to 101/52. At this time. An ABG was drawn that showed borderline res piratory acidosis. At this stage, his blood pressure ranged between the mean arterial pressure 53-76. An urinalysis was positive, he had a white count of 21,000 with a left shift, a chest x-ray showed bilateral pneumonia, and his hemoglobin/hematocrit was 13.5/42.9 with a platelet count of the lower end of normal at 204,000. Initial lactic acid level was 2.5, his kidney function showed BUN/creatinine of 49/2.4, and a complete metabolic panel shows serum potassium of 5.3. He had a normal lipase level, as well as in unremarkable. Troponin and normal PTT and PT/INR. A right lower extremity. CT scan was ordered due to concern of right foot osteomyelitis and the patient was subsequently transferred from the [place] ED to the [facility] ED since original surgery services available at [place]. The CT results taken [place] were unavailable at the time of presentation to [facility], but the CD of the imaging was provided. Upon presentation to the [facility] ED, patient did not recall any events. The last one to 2 days and was complaining of thirst and productive cough of "sticky spu loli"that's been present for couple days. Patient's reports he was in usual state of health. As far. She knew for the past few days that complained of only hip and back pain. In the ED at [facility], he denied fever, chills, shortness of breath, chest pain, hemoptysis, dyspnea, abdominal pain, wheezing, nausea, vomiting, dysphagia, diarrhea, melena, hematochezia, hematuria, dysuria, or any new skin changes. On review of systems. Patient was unable to provide a history to the admitting team over the past couple months related to his health, so the team reached out to the patient's . She reports that he had been at the [facility] awaiting removal of pins on 04/03 from the right lower extremity by jewel blocker and sawyer, Dr. July Zhou after he had right lower extremity osteomyelitis. The required foot debridement with right foot fusion in December 2019 at [facility]. At the time of his right foot surgery, he was treated for MSSA bacteremia, A. fib with RVR, and aortic valve endocarditis before being transferred to [facility] when he developed stroke symptoms (neglect/right-sided weakness) where he ultimately did not receive intervention and then was subsequently transferred back to [facility]'s acute rehabilitation unit with ultimate plans for discharge to [place] for placement while he awaiting removal of pins from right foot. After this procedure, patient was ordered per podiatry to remain non-weightbearing. HOSPITAL COURSE: Upon presentation to [facility], severe sepsis workup was initiated. He received 1 L of fluids at [place] and was given 3 more liters. [facility] with intermittent reassessments of the central venous pressure. Empiric antibiotics are started in the form of Zosyn and vancomycin to cover for the positive UTI in the bilateral pneumonia. Initial blood cultures 2 along with urinalysis and urine culture as well as lactic acid levels were drawn. The previous lactic acid level at [place] was 2.8, and since at [facility] was 1.8. He received a fluid bolus of 40 mL/kg and repeat central venous pressures were less than 12. The goal was set to maintain a map of above 65. Dr. Bryan of the director geothermal operations team was consulted to place a central line. Thankfully, over the course of his stay, he responded to the IV fluids and while triple lumen was placed. He never required initiation of vasopressor pharmacotherapy. He was also placed on telemetry. Also, the infectious disease team was consulted. As far as respiratory status. He presented with hypercarbic hypoxic respiratory failure with respiratory acidosis. For his insulin-dependent diabetes mellitus with neuropathy that is poorly controlled, he was placed on a sliding scale insulin regimen in addition to long-acting insulin in the form of Levemir. As far as his foot, his pins were scheduled to be removed on 04/[address] Boyer, who subsequently came into [facility] and remove them on 04/02. His home amiodarone was continued for his diagnosis of paroxysmal atrial fibrillation, as was his home Eliquis. The vancomycin was discontinued once his MRSA screen was negative and ultimately Zosyn was transitioned to IV Levaquin on 04/05. On 04/06, the IV Levaquin was switched to oral Levaquin as the bioavailability is roughly the same for the 2 modalities. A sputum culture was ordered by infectious disease, which returned as a positive result showing both presence of Proteus and Klebsiella (both sensitive to Levaquin). History did lactic acid levels had normalized. He was switched to medical surgical status on 04/06. On 04/07, the infectious disease team stopped his Levaquin and started dicloxacillin 500 mg orally every 6 hours in preparation for discharge as this is what was indicated for chronic osteomyelitis. On 04/07, patient was discharged to [facility] for continued physical therapy and occupational therapy. He is to follow-up with his primary care physician 1 week and to continue taking the dicloxacillin for 30 days. He is also follow-up with Dr. Boyer of podiatry per their previously agreed on outpatient schedule. DISCHARGE MEDICATIONS: Please see below. ALLERGIES: Please see below. PHYSICAL EXAMINATION ON DISCHARGE: VITAL SIGNS: Please see below. GENERAL: Pleasant male lying in bed. A & O x3. NAD. HEENT: NC, AT. PERRLA. Moderately dry MM w/ no pharyngeal erythema or exudate. CARDIOVASCULAR: HRRR with normal s1 and s2. No m/r/g appreciated. RESPIRATORY: Decreased tidal volume with moderate crackles appreciated b/l. Breathing room air. Symmetric chest expansion. ABDOMINAL: Soft, NT with multiple hernias (umbilical and ventral) appreciated. No rigidity. EXTREMITIES: Extensive dressings over b/l LEs with b/l foot/heel floating boots. There are dermatologic signs of chronic hyperglycemia of b/l LEs. Surrounding area of dressing is without warmth or erythema and dry with nl temperature NEUROLOGICAL: Decreased sensations of b/l LEs, right worse than left PSYCHOLOGICAL: Mood and affect appear appropriate LABORATORY DATA: Please see below. IMAGING: Chest Xray, 04/01/2020- radiologist official read not logged at time of dc Echocardiogram, 04/02/2020- No vegetation is apparent; however, this was a moderately technically difficult echocardiogram. Severe focal thickening and focal calcific deposits of 3-cuspid aortic valve. Mild reduction in aortic cusp mobility. Mild aortic stenosis. No aortic regurgitation. Mild-moderate mitral annular calcification. Very mild mitral regurgitation. No mitral stenosis. Normal left ventricle size and wall thickness. Normal regional LV wall motion and wall thickening. Normal LV systolic function. LVEF 65% by visual estimate. Normal LV diastolic function. No pericardial effusion. Moderately technically difficult echocardiogram Doppler. Otherwise normal appearing echocardiogram Doppler findings. Foot Xray, 04/08/2020- radiologist official read not logged at time of dc ACTIVITY: As tolerated DIET: Consistent carb/diabetic diet DISPOSITION: Transferring back to [place] DISCHARGE INSTRUCTIONS & ITEMS TO FOLLOWUP ON ON OUTPATIENT: -Continue with dicloxacillin 500 mg orally every 6 hours (4 times per day). Per the instructions of infectious disease, Dr. Hancock -Continue with physical therapy and occupational therapy while at [facility] -Follow-up with Dr. Boyer of podiatry as previously agreed upon outpatient schedule -Follow-up with primary care physician within the next week -Please return to the ER if you experience any problems DISCHARGE CONDITION: Stable TIME SPENT ON DISCHARGE: 39 minutes Vital Signs/I&Os Vital Signs Date Time Temp Pulse Resp B/P (MAP) Pulse Ox O2 Delivery O2 Flow Rate FiO2 04/07/20 16:17 18 Room Air 04/07/20 09:12 84 129/69 04/07/20 06:00 97.9 94 04/03/20 08:34 3.0 04/03/20 06:00 40 I&O- Last 24 Hours up to 6 AM 04/07/20 06:00 Intake Total 840 ml Output Total 600 ml Balance 240 ml Laboratory Data Labs 24H Laboratory Tests 2 04/06/20 20:45: Bedside Glucose (Misc Panel) 139H 04/07/20 08:11: Immature Granulocyte % (Auto) 1.5, Neutrophils (%) (Auto) 69.4H, Lymphocytes (%) (Auto) 13.2L, Monocytes (%) (Auto) 10.5H, Eosinophils (%) (Auto) 4.7H, Basophils (%) (Auto) 0.7, Neutrophils # (Auto) 7.1, Lymphocytes # (Auto) 1.4L, Monocytes # (Auto) 1.1H, Eosinophils # (Auto) 0.5, Basophils # (Auto) 0.1, Nucleated Red Blood Cells % (auto) 0.0, Anion Gap 5L, Glomerular Filtration Rate > 60.0, Calcium Level 9.0, Magnesium Level 1.8, Total Bilirubin 0.5, Aspartate Amino Transf (AST/SGOT) 15, Alanine Aminotransferase (ALT/SGPT) 18, Alkaline Phosphatase 77, C-Reactive Protein, Quantitative 11.60H, Total Protein 6.7, Albumin 2.4L, Albumin/Globulin Ratio 0.6 04/07/20 08:19: Bedside Glucose (Misc Panel) 75L 04/07/20 11:27: Bedside Glucose (Misc Panel) 178H 04/07/20 14:23: Coronavirus (COVID-19)(PCR) NEGATIVE CBC/BMP Laboratory Tests 04/07/20 08:11 FSBS Laboratory Tests Test 04/06/20 20:45 04/07/20 08:19 04/07/20 11:27 Range/Units Bedside Glucose ([facility] Panel) 139 75 178 80-115 MG/DL Microbiology Microbiology 04/01/20 Gram Stain - Final, Complete 04/01/20 Sputum Culture - Final, Complete Proteus Mirabilis Klebsiella Pneumoniae 04/01/20 Blood Culture - Final, Complete NO GROWTH AFTER 5 DAYS Discharge Medications Scheduled Amiodarone HCl (Amiodarone HCl) 200 Mg Tablet, 200 MG PO BID, (Reported) Amlodipine Besylate (Amlodipine Besylate) 10 Mg Tablet, 10 MG PO DAILY, (Reported) Ammonium Lactate (Ammonium Lactate) 12% Lotion, 1 APLCT TOP BID, (Reported) APPLY TO BILATERAL LEGS Apixaban (Eliquis) 2.5 Mg Tablet, 2.5 MG PO BID Ascorbic Acid (Ascorbic Acid) 500 Mg Tablet, 500 MG PO DAILY, (Reported) Aspirin (Aspir 81) 81 Mg Tablet.dr, 81 MG PO DAILY, (Reported) Atorvastatin Calcium (Atorvastatin Calcium) 80 Mg Tablet, 80 MG PO QHS, (Reported) Baclofen (Baclofen) 10 Mg Tablet, 5 MG PO TID, (Reported) Dicloxacillin Sodium (Dicloxacillin Sodium) 250 Mg Capsule, 500 MG PO Q6H Docusate Sodium (Colace) 100 Mg Capsule, 100 MG PO TID, (Reported) Duloxetine Hcl (Duloxetine HCl) 60 Mg Capsule.dr, 60 MG PO DAILY, (Reported) Emollient Base (Vanicream) 453 Gm Cream..g., 1 APLCT TOP BID, (Reported) APPLY TO LEGS Fentanyl (Fentanyl) 100 Mcg Patch.td72, 100 MCG TD Q3RD, (Reported) APPLIED TO LEFT LOWER ABDOMEN Gabapentin (Gabapentin) 300 Mg Capsule, 600 MG PO TID, (Reported) Heparin Sodium,Porcine/Pf (Heparin 1,000 Unit/10 (100/ml)) 1,000 Unit/10 Ml Syringe, 5,000 UNIT SC Q12H, (Reported) Insulin Detemir (Levemir) 100 Unit/1 Ml Vial, 48 UNITS SC BID, (Reported) Insulin Human Lispro (Humalog) 100 Unit/1 Ml Vial, 1 DOSE SC ACHS, (Reported) PER SLIDING SCALE L.acidoph/L.bulg/B.bif/S.therm (Bacid Caplet) 1 Each Tablet, 1 TAB PO TID, (Re ported) Latanoprost (Xalatan) 0.005% 2.5ML Drops, 1 DROP OU QHS, (Reported) Lidocaine (Lidoderm) 5% Adh..patch, 1 PATCH TD DAILY, (Reported) APPLY TO LEFT LATERAL HIP Metoprolol Succinate (Metoprolol Succinate) 50 Mg Tab.er.24h, 50 MG PO DAILY, (Reported) Multivitamins (Thera M Plus Tablet) 1 Each Tablet, 1 TAB PO DAILY, (Reported) Nystatin/Triamcin (Nystatin-Triamcinolone Cream) 15 Gm Cream..g., 1 APLCT TOP TID, (Reported) APPLY TO SACRUM Pantoprazole Sodium (Pantoprazole Sodium) 40 Mg Tablet.dr, 40 MG PO DAILY, (Reported) Salmeterol (Serevent Diskus) 50 Mcg Blst.w.dev, 1 PUFF INH BID, (Reported) Sennosides (Senna) 8.6 Mg Tablet, 1 TAB PO BID, (Reported) Zinc Sulfate (Zinc Sulfate) 220 Mg Capsule, 220 MG PO DAILY, (Reported) Scheduled PRN Acetaminophen (Acetaminophen) 325 Mg Tablet, 650 MG PO Q4H PRN for PAIN, (Reported) Bisacodyl (Bisacodyl) 10 Mg Supp.rect, 10 MG AL DAILY PRN for CONSTIPATION, (Reported) Ipratropium/Albuterol Sulfate (Iprat-Albut 0.5-3(2.5) mg/3 ml) 3 Ml Ampul.neb, 1 VIAL NEB Q8H PRN for SOB/WHEEZING, (Reported) Magnesium Hydroxide (Milk of Magnesia) 400 Mg/5 Ml Oral.susp, 30 ML PO DAILY PRN for CONSTIPATION, (Reported) Oxycodone HCl (Oxycodone HCl) 5 Mg Tablet, 5 MG PO Q6H PRN for PAIN, (Reported) Allergies Coded Allergies: TAPE (Verified Allergy, Mild, RASH/BLISTERS, 08/15/19) GME ATTESTATION GME ATTESTATION My faculty preceptor for this patient encounter was physically present during the encounter and was fully available. All aspects of the patient interview, examination, medical decision making process, and medical care plan development were reviewed and approved by the faculty preceptor. The faculty preceptor is aware and concurs with the plan as stated in the body of this note and will attest to such by his/her cosignature. ATTENDING NOTE I, Vadim Nuñez, have independently examined this patient and performed my own physical exam, as well as reviewed the documentation and edited where necessary. I have discussed in detail with the resident / student the findings and plan of treatment as documented by the resident / student and edited their note. I agree with their findings and treatment plan and have edited their documentation. I will continue to follow the patient during this hospital stay. Time spent on discharge 35 minutes CECI OSEGUERA D.O. Apr 07, 2020 19:56 VADIM NUÑEZ MD Apr 12, 2020 12:08
--- NOTE | 2020-04-12 15:55 | RO ---
DATE OF OPERATION: 04/01/2020 PREOPERATIVE DIAGNOSIS: Hypotension. POSTOPERATIVE DIAGNOSIS: Hypotension. PROCEDURE: Left triple lumen internal jugular catheterization. SURGEON: Gregor Bryan DO COUNTY ENGINEER: None ANESTHESIA: 1% lidocaine, 5 mL administered subcutaneously. CONSENT: Patient gave verbal consent at bedside. Procedure was deemed urgent due to hypotension. DESCRIPTION OF PROCEDURE: Chlorhexidine was used clean the area and full barrier precautions were used. Timeout was performed with two patient identifiers, identifying correct site, and correct procedure. The left internal jugular (IJ) was identified under ultrasound. Estimated central venous pressure was low; therefore, he was placed in Trendelenburg. 1% lidocaine was then introduced subcutaneously for a total of 5 mL. The RaAquantiason syringe was then introduced into the left IJ with return of venous blood flow. Wire was fed through the needle and the needle was removed. The triple lumen catheter was then placed via modified Seldinger technique. The wire was removed. The catheter was sutured in at 15 cm. all three ports returned venous blood flow and flushed easily. Post-procedure chest x-ray showed good placement of the central line with the tip of the catheter in the superior vena cava. There was no pneumothorax. No other complications observed. MEEK
--- NOTE | 2020-04-12 15:58 | CR ---
DATE OF CONSULTATION: 04/02/2020 REASON FOR CONSULTATION: Foot ulcerations. Mr. Alex is a 64-year-old male, well known to me, who was admitted from emergency room (ER) due to sepsis. He is not a great historian at this time. Cannot really recall what brought him here. He believes he may have walked on his foot, but he is unsure. MEDICAL HISTORY: Significant for: 1. Diabetes with neuropathy. 2. Coronary artery disease. 3. Atrial fibrillation. 4. Chronic anemia. 5. Postobstructive sleep apnea, continuous positive airway pressure (CPAP). 6. Chronic kidney disease. 7. Peripheral vascular disease. 9. Chronic obstructive pulmonary disease (COPD). 10. History of right foot osteomyelitis and Charcot foot. Risks of bacteremia, stroke, hypertension, melanoma, and necrosis of left hip. SURGICAL HISTORY: 1. Rotator cuff surgery bilateral. 2. Iliac artery angioplasty and stent. 3. Left superficial femoral artery (SFA) angioplasty and stent. 4. Left hallux amputation. 5. Cervical spine fusion. 6. Cardiac stent. 7. Melanoma removal. 8. Right mid foot fusion with external fixator. SOCIAL HISTORY: Former smoking. FAMILY HISTORY: Noncontributory. ALLERGIES: Tape. REVIEW OF SYSTEMS: Denies fevers or chills. Unreliable due to poor mentation over the last few days. Vital signs are reviewed. He has remained afebrile. Labs are reviewed. White blood cell count on admission was 18, today is 14.2. ESR was 43. CRP 22.10. Sputum and blood cultures are pending. Chest x-ray results pending. Lower extremity examination: External fixator in place over right foot wound. There is no extruding drainage. No erythema. No edema. Left foot wound nearly healed, unremarkable. ASSESSMENT: A 64-year-old male with treated osteomyelitis, status post mid foot fusion. PLAN: External fixator and pins are removed. Dressing change of wound ordered. He is to remain nonweightbearing. Ultimately, plan will be to get him into a custom boot. This, however, must be performed outpatient. He cannot walk on this foot until the boot is obtained. The wound itself does not appear infected. May be a source if all other infection potentials are ruled out. He is on vancomycin. Will continue this for the time being. At this time, no need for surgical intervention to either foot. MTDD
--- NOTE | 2020-04-12 16:00 | CR ---
INFECTIOUS DISEASE CONSULTATION DATE OF CONSULTATION: 04/02/2020 REASON FOR CONSULTATION: History of pneumonia in a patient with a history of chronic osteomyelitis of the right foot with MSSA. HISTORY OF PRESENT ILLNESS: Aurelio is a pleasant 64-year-old gentleman, well known to me from multiple previous hospitalizations, who was admitted in December with Staph Aureus bacteremia, MSSA, on December 29. The patient developed a stroke like presentation on January 13 and was transferred to [place] for a possible TIA stroke. This completely reversed. He had no residual deficit. Patient came back to acute rehab on January 30 and was discharged on February 05 to [facility]. The patient was treated with six weeks of I.V. antibiotics for acute osteomyelitis of the foot as well as endocarditis with MSSA. He was then switched to Keflex 500 mg p.o. q.i.d., although for two weeks the patient was on no antibiotics. He remained on Keflex for chronic osteomyelitis of the right foot, had external fixators placed by Dr. Romano, which were removed today. The patient presented to the ICU from the [facility] with confusion, hypoxia and cough productive of yellow phlegm. Today, he looks so much better. He has no nausea, vomiting, or diarrhea. No abdominal pain. His foot is healing very well. The pins were removed today by Dr. Romano and the wound looks great. He denies any urinary symptoms. No dysuria or hematuria. He has no diarrhea. PAST MEDICAL HISTORY: Significant for aortic valve endocarditis with blood cultures positive for MSSA, atrial fibrillation with rapid ventricular response, stroke like symptoms with right-sided weakness and neglect that reversed when transferred to [facility] on January 13, type 2 diabetes with neuropathy, coronary artery disease with stents in 2000, history of obstructive sleep apnea; not on CPAP, chronic kidney disease, peripheral vascular disease; status post four stents in lower extremities, COPD, heart failure with preserved ejection fraction, echocardiogram on December 2019 showed acute osteomyelitis of right lower extremity; status post debridement and fusion done by Dr. Romano on January 07 with culture positive for MSSA. Osteonecrosis of the left hip, history of melanoma. PAST SURGICAL HISTORY: Rotator cuff surgery, bilateral common and external iliac artery angioplasty, left superficial femoral artery angioplasty, left first toe amputation, C6-7 corpectomy with fusion, cardiac stents and melanoma of the eyelid. FAMILY HISTORY: His father of cancer. SOCIAL HISTORY: He quit smoking since he has been hospitalized. He usually lives with his , but has been in the hospital since December. REVIEW OF SYSTEMS: He denied any fever or chills. He had a cough productive of brownish phlegm. Mild shortness of breath. He is on oxygen; down to 40%. No wheezing. No chest pain. He has chronic crashes on lower extremities and upper extremities. ALLERGIES: Tape allergy. MEDICATIONS: 1. Vancomycin 1 gram I.V. every 12 hours. 2. Zosyn 4.5 grams I.V. every 6 hours. 3. Colace 100 mg p.o. t.i.d. 4. Tamiko cream b.i.d. 5. Albuterol and Atrovent nebs. 6. Nystatin to buttocks area. 7. Oxycodone 5 mg every 6 hours p.r.n. 8. Serevent one puff inhaled b.i.d. 9. Senokot one tablet p.o. b.i.d. PHYSICAL EXAMINATION: Heart normal S1, S2 with no murmurs appreciated. Lungs have crackles at the left base, but no wheezes or rhonchi. Abdomen is soft, mildly tender in the left lower quadrant. Extremities no edema. He has scaly lesions on the left anterior haider, scaly lesions on the right foot. He has an ulcer on the dorsal affect of the foot measuring about 5 x 4 cm with granulation tissue, no purulence. He has a foot deformity with multiple amputated toes on the right foot. He has a calf ulceration on the left leg, which is clean, with granulation tissue and measuring about 14 cm x 3 cm. Neurologic exam; alert and oriented x3, moves all extremities with severe limited motions of the left leg due to avascular necrosis of the left hip, but neurologically intact. LABORATORY DATA: White count 18 yesterday and today 14.2, hemoglobin 10.1, hematocrit 33, platelets 139,000, 72% neutrophils, 10% lymphocytes, 5% monocytes. ESR 43. Sodium 138, potassium 3.8, chloride 108, bicarb 27, BUN 38, creatinine 1.3, glucose 202, calcium 7.6. AST 24, ALT 25, alkaline phosphatase 61. CRP 22.1. Albumin 2.4. Procalcitonin is pending. Urinalysis had 1 white cell and 8 red cells. Vancomycin trough not done. MRSA screen positive on 04/01/2020. Urine Legionella antigen pending. Pneumococcal antigen pending. COVID-19 negative. IMAGING DATA: Chest x-ray was done today and is pending. I could not even access the images. IMPRESSION: This is a 64-year-old gentleman who has been in the hospital for the past three months/[facility], who was admitted with worsening hypoxia, cough productive of brownish phlegm requiring oxygen with no other source of infection. He has no urinary symptoms. His urinalysis is not consistent with urinary tract infection. His right foot external fixator was removed and the foot looks great. There is a small ulceration, which is superficial with no purulence. Most likely the patient has healthcare associated pneumonia and agree with current antibiotics including Vancomycin and I.V. Zosyn. PLAN: Continue with I.V. Vancomycin and Zosyn until results of sputum cultures are available, then would deescalate appropriately. Blood culture is still pending. Use Triamcinolone on rash on upper abdomen. Avoid using tape. Patient will need to remain on Keflex once antibiotics are deescalated for osteomyelitis of the right foot. MTDD
--- NOTE | 2020-04-12 16:03 | IPN ---
DATE: 04/03/2020 ATTENDING PHYSICIAN: Dr. Marvin Hancock SUBJECTIVE: Mr. Alex is seen and examined this morning. Currently, he has no new complaints. He continues to have some right foot pain as well as some left hip pain and back pain. He denies any shortness of breath. He states that he feels better from yesterday. He denies any increase in cough or sputum production. There had been no adverse events reported overnight. The patients blood pressure remained stable. He has remained afebrile. OBJECTIVE: VITAL SIGNS: Temperature 97.0 with a T-max of 99.1, pulse 87, respiratory rate 13, blood pressure is 117/73. Pulse oximetry was 93% on room air. GENERAL: The patient is awake, alert and oriented. He does not appear in any acute distress. He is lying in bed. HEENT: Atraumatic, normocephalic. Eyes are nonicteric. Trachea is midline. He has a left central venous catheter placed into the left jugular vein. There is no areas of erythema or oozing around the site. CARDIOVASCULAR: Normal S1 and S2, regular rate and rhythm. No clicks, rubs or murmurs. PULMONARY: Patient has clear vesicular breath sounds anteriorly. There is no wheezes, rhonchi or rales. There is symmetric chest expansion and good respiratory effort. ABDOMEN: Soft, it is nondistended. It is nontender. Normoactive bowel sounds throughout. SKIN: Patient has multiple areas of skin breakdown as well as what appears to be a contact dermatitis on areas of adhesive tapes. EXTREMITIES: Patient has Charcot foot bilaterally of both the left and the right. 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 He has a left Achilles wound which is clean appearing. He also has a right dorsal healing wound with clean granulation tissue overlying. PSYCH: Mood and affect appear appropriate. NEUROLOGIC: No focal neurological deficits. LABORATORY DATA: Hematology: White blood cell count 11.7, hemoglobin 9.9, hematocrit 33.0, platelet count 126,000. Chemistries: Sodium 135, potassium 3.5, chloride 104, CO2 27, BUN 19, creatinine 0.94, glucose is 242. Calcium 8.2. AST 16, ALT 26, alkaline phosphatase 61. C-reactive protein 20.6. Procalcitonin currently pending. Blood cultures negative for any growth. Sputum culture demonstrating Klebsiella and Proteus confirmed with laboratory. Inpatient antibiotics. Zosyn 4.5 grams q. 6 hours. ASSESSMENT AND PLAN: Right sided pneumonia with sepsis. Patient presented with severe sepsis. He had been volume resuscitated. It appears that on his chest x- ray that he likely had some degree of pulmonary edema, had fluffy haziness bilaterally. Initially, there is what appears to be a right lower lobe to middle lobe infiltrate on his chest x-ray. He was empirically started on Zosyn and Vancomycin as he is MRSA positive nasal swab. He had a sputum culture obtained which was identified as Klebsiella and Proteus. Therefore, we will currently discontinue his Vancomycin and continue on Zosyn. Will recommend either switching to an oral fluoroquinolone or oral third degeneration cephalosporin pending the sensitivities on result. RECOMMENDATIONS: Discontinue Vancomycin and continue Zosyn for now, await sensitivities and deescalate to oral therapy either fluoroquinolone or third generation cephalosporin based on culture data. [facility]
--- NOTE | 2020-04-12 16:06 | IPN ---
DATE: 04/06/2020 SUBJECTIVE: Aurelio seems to be doing much better. He is off oxygen. His cough has improved. He has no shortness of breath. No nausea, vomiting or diarrhea. He was switched to Levaquin on 04/04/2020, currently day #3, and has received four days of IV Zosyn. LABORATORY DATA: White count 11.1, hemoglobin 12.2, hematocrit 38.3, platelets 196,000, 69% neutrophils, 15% lymphocytes, 11% monocytes. Sodium 134, potassium 3.2, chloride 101, bicarbonate 30, BUN 18, creatinine 0.79, glucose 85, calcium 9.1, magnesium 1.6. CRP 13.6. PHYSICAL EXAMINATION: VITAL SIGNS: Temperature is 97.4, pulse 74, respirations 18, blood pressure 132/72, O2 sat 93% on room air. HEART: Normal S1 and S2. No murmurs. LUNGS: Diminished breath sounds but clear. No wheezes, rales or rhonchi. ABDOMEN: Soft, nontender. No hepatosplenomegaly. EXTREMITIES: No edema. Ulcer on left calf healing well and on foot after removal of hardware. Ulceration healing well with superficial ulcer measuring about 3 x 2 cm. Sputum culture had Proteus mirabilis and Klebsiella pneumoniae. IMPRESSION: 1. Healthcare associated pneumonia with Proteus and Klebsiella, on day #7 of antibiotics. Would discontinuing p.o. Levofloxacin tomorrow. 2. Chronic osteomyelitis of the right foot status post removal of hardware. Patient needs to be restarted on Staph aureus coverage for MSSA until the wound is completely healed and the patient is mobile on that foot to make sure he does not develop a fracture. Resume Dicloxacillin 500 mg p.o. t.i.d. Discontinue p.o. Levofloxacin tomorrow. Patient could be discharged back to [facility]itent[facility]. MEEK
--- NOTE | 2020-04-12 16:08 | REP ---
PORTABLE CHEST X-RAY: SINGLE VIEW HISTORY: Central line placement. COMPARISON: Chest x-ray 11/12/2019. FINDINGS: A left internal jugular central venous catheter is seen in place terminating to the right of midline at the expected junction of the superior vena cava (SVC) and brachiocephalic vein. A cervical discectomy fusion plate is noted in place. Monitoring electrodes are seen. Heart is not enlarged. There is patchy consolidation at the right base and right upper lobe consistent with pneumonia. Some infiltrate is seen along the left heart border as well. Todays view shows the lungs exposed at a somewhat lesser level of inspiration than on 11/12/2019. There is no evidence of pneumothorax. MTDD
--- NOTE | 2020-04-12 16:10 | REP ---
RIGHT FOOT SERIES: FOUR VIEWS HISTORY: Charcot foot status post midfoot fusion. COMPARISON: Radiographs from February 05, 2020. FINDINGS: Lateral view shows marked pes planus with slight inversion of the plantar arch. There is moderate to mid foot osteoarthritic spurring. Diffuse osteopenia is noted. There is osteoarthritic spurring at the MTP joints of all five digits as well. There is Achilles calcaneal spurring. There appears to be bony ankylosis across the fourth and second metatarsal tarsal articulations and possibly incomplete bony ankylosis across the first tarsometatarsal articulation. Old pin tract is visible in the second metatarsal. No other abnormality. MTDD
== END 2020-04-07 16:20 | disposition other institution (70) | DRG 871 ==
LOC: M ICU 17:56 → M PCU 04-03 12:31 → M MS5PR 04-06 18:25
PROVIDERS: ADMIT General Practice; ATTEND Internal Medicine
DX: A41.9 Sepsis, unspecified organism (principal); J18.9 Pneumonia, unspecified organism; J96.21 Acute and chronic respiratory failure with hypoxia; N39.0 Urinary tract infection, site not specified; N17.9 Acute kidney failure, unspecified; I50.32 Chronic diastolic (congestive) heart failure; M87.052 Idiopathic aseptic necrosis of left femur; I48.0 Paroxysmal atrial fibrillation; E11.51 Type 2 diabetes mellitus with diabetic peripheral angiopathy without gangrene; I25.10 Atherosclerotic heart disease of native coronary artery without angina pectoris; Z95.2 Presence of prosthetic heart valve; J44.9 Chronic obstructive pulmonary disease, unspecified; I11.0 Hypertensive heart disease with heart failure; G47.33 Obstructive sleep apnea (adult) (pediatric); Z91.19 Patient's noncompliance with other medical treatment and regimen; Z79.01 Long term (current) use of anticoagulants; E86.0 Dehydration; Z79.899 Other long term (current) drug therapy; Z79.4 Long term (current) use of insulin; G89.29 Other chronic pain

== ENCOUNTER 2021-04-30 15:56 | Inpatient (IN) | payer MEDICARE, BC, MEDICAID ==
[~2021-04-30] VITALS: Ht 182.9 cm; Wt 85.5 kg
[~2021-04-30 15:56] MED LIST changes: +AMMO12LO TOP; +ASCO500T PO; +ASPI-569 PO; -ASPI81TAEC PO; +BACITAB PO; +BISA10SU20 PR; -CALC500C PO; +CEPH500T PO; +DICL25CA PO; +ELIQ2.5T PO; +FENT100D25 TD; +GABA-282 PO; -GABA-843 PO; +HEPA100I26 SC; +LIDO5DIS41 TD; -LISI-538 PO; -LISI-542 PO; +LISI-898 PO; +LISI10TA22 PO; -LISI10TA4 PO; -LISI2.5T2 PO; +LISI2.5T9 PO; +LISI20TA33 PO; +MOM30SS2 PO; +NICO1DIS12 TD; -NICO21DI31 TD; +NYST1CRE15 TOP; +RA A500C4 PO; +SENN8.6T58 PO
[2021-04-30] MEDS ORDERED: PIPERACILLIN/TAZOBACTAM SOD 4.5 GM in D5W MINI-BAG PLUS 50 ML IV ONE (16:15)
--- NOTE | 2021-04-30 17:03 | REP ---
INDICATION: pain swelling COMPARISON: 04/07/2020 TECHNIQUE: AP, lateral, oblique views of the right foot. FINDINGS: Extensive osteoarthritic degenerative changes primarily involving the ankle and midfoot again noted and relatively unchanged. No obvious acute fracture or dislocation. Lateral view best demonstrates significant soft tissue swelling and suggestions for small amounts of subcutaneous emphysema. IMPRESSION: Swelling suggest cellulitis. No obvious acute fracture or dislocation. No definite findings to suggest osteomyelitis although diagnosis cannot be excluded based on radiographic evaluation. <Electronically signed by Raghav Albrecht > 04/30/21 [id number]
[2021-04-30 17:05] LABS: BASO # 0.1 10^3/uL (0.0-0.2); BASO % 0.8 % (0.0-1.0); EOS # 0.1 10^3/uL (0.0-0.5); EOS % 0.7 % (0.0-3.0); HEMATOCRIT 39.7 % (42.0-52.0); HEMOGLOBIN 12.1 g/dl (13.5-17.5); LYMPH % 12.9 % (24.0-44.0); MEAN CORPUSCULAR HEMOGLOBIN 25.1 pg (27.0-33.0); MEAN CORPUSCULAR HGB CONC 30.5 g/dl (32.0-36.5); MEAN CORPUSCULAR VOLUME 82.4 fl (80.0-96.0); MONO # 0.9 10^3/uL (0.0-0.8); NEUTROPHILS # 5.6 10^3/uL (1.5-8.5); NEUTROPHILS % 72.8 % (36.0-66.0); PLATELET COUNT, AUTOMATED 204 10^3/uL (150-450); RED BLOOD COUNT 4.82 10^6/uL (4.30-6.10); WHITE BLOOD COUNT 7.7 10^3/uL (4.0-10.0)
[2021-04-30 17:32] LABS: BLOOD UREA NITROGEN 21 MG/DL (7-18); CALCIUM LEVEL 9.5 MG/DL (8.8-10.2); CARBON DIOXIDE LEVEL 31 MEQ/L (21-32); CHLORIDE LEVEL 104 MEQ/L (98-107); CREATININE FOR GFR 1.18 MG/DL (0.70-1.30); GLOMERULAR FILTRATION RATE > 60.0 (>49); GLUCOSE, FASTING 171 MG/DL (70-100); POTASSIUM SERUM 5.2 MEQ/L (3.5-5.1); SODIUM LEVEL 137 MEQ/L (136-145)
--- NOTE | 2021-04-30 17:32 | REP ---
INDICATION: leg pain r/o dvt COMPARISON: None. TECHNIQUE: Meza scale and color Doppler evaluation using linear high frequency transducer. FINDINGS: Ultrasound examination of the right lower extremity deep venous structures from the common femoral vein through the calf/ankle to include the peroneal, and tibial veins demonstrates normal compressibility flow and wave patterns in response to respiration and augmentation. There is no evidence for deep venous thrombosis. Contralateral CFV is patent and normal. IMPRESSION: No evidence for deep venous thrombosis. <Electronically signed by Raghav Albrecht > 04/30/21 [id number]
--- OUTSIDE RECORDS SUMMARY | 2021-04-30 17:46 | CCD ---
Author Author [facility] Organization [facility] Address Unknown Phone Unavailable Care Team Providers Care Pantograph Transferrer Name Role Phone Anatoliy Hubbard Unavailable PROBLEMS Type Condition ICD9-CM Code [id number] Code Onset Dates Condition S tatus W/U Status Risk SNOMED Code Notes Problem Type 2 diabetes mellitus with foot ulcer E11.621 Active confirmed 547703449 Problem Non-pressure chronic ulcer of left calf with fat layer exposed L97.222 Active confirmed 890030818 Problem Diabetes E11.9 Active confirmed 88534002 Problem Edema of right lower extremity R60.0 Active confir med 080479651 Problem Osteoarthritis involving multiple joints on both sides of body M15.9 Active confirmed 214713524 Problem Hip pain, left M25.552 Active confirmed 4921 8002 Problem History of MRSA infection Z86.14 Active confirmed 526773333 Problem Cellulitis of left lower limb L03.116 Active confir med 115637094 Problem Infected decubitus ulcer, unstageable L89.95 Ac tive confirmed 977855489 Problem Infected pressure ulcer, unspecified pressure ulcer stage L89.90 Active confirmed 097861485 Problem Effusion, left knee M25.462 Active confirmed 761826243 Problem MSSA (methicillin susceptible Staphylococcus aureus) i nfection A49.01 Active confirmed 786600574 Problem Primary osteoarthritis involving multiple joints M 15.0 Active confirmed 494343239 Problem Diabetic peripheral neuropathy associate d with type 2 diabetes mellitus E11.42 Active confirmed 7699885748855 Problem Chronic prescription opiate use Z79.891 Active confirmed 438892368 Problem Non-pressure chronic ulcer o f other part of left foot with unspecified severity L97.529 Active confirmed Problem Toe ulcer, right L97.519 Active confirmed 30 5959031 Problem Pressure ulcer of left leg, unstageable L89.890 Active confirmed 61963913 Problem Cellulitis of right lower extremity L03.115 Acti ve confirmed 120457774 Problem Basal cell carcinoma of neck C44.41 Active confirme d 168282148 Problem Peripheral vascular disease due to secondary diabetes E13.51 Active confirmed 8429882 Problem Dermatitis L30.9 Active confirmed 61246331 Problem Diabetes with ulcer of calf E11.622 Active confirme d 573296908 Problem Chronic ulcer of right ankle with fat layer exposed L97.312 Active confirmed 071626551 Problem Acute osteomyelitis of right foot M86.171 Active confirmed 0794096885032183 Problem Polymicrobial bacterial infection A49.9 Active con firmed 9782151 ALLERGIES No Known Allergies ENCOUNTERS from 1955 to 2021-02-22 Encounter Location Date Provider Diagnosis [facility] [address] Floor [phone] [place] [address] Jan, Anatoliy Hubbard IMMUNIZATIONS Vaccine Route Administration Date Status Influenza 6mo & up Fluzone Unknown Jun 07, 2019 Refus ed SOCIAL HISTORY Tobacco Use: Social History Observation Description Date Details (start date - stop date) Current Smoker Sex Assigned At : Social History Observation Description Sex Assigned At Unknown Alcohol Screening: Question Answer Notes Did you have a drink containing alcohol in the past year? No Points 0 Interpretation Negative BMI Care Goal Follow-Up Question Answer Notes Above Normal BMI Follow-Up Dietary management educatio n, guidance, and counseling Tobacco Use: Question Answer Notes Are you a: current smoker Patient counseled on the dangers of tobacco use and urged to quit: 10/26/2018 How many cigarettes a day do you smoke? 6-10 Are you interested in quitting? Not ready to quit Counseled the patient on smoking effects, education provided 04/08/2019 Patient encouraged to reduce and/or quit smoking due to already poor circulation to lower extremities and wounds that are in the process of healing. REASON FOR REFERRAL No Information VITAL SIGNS No information MEDICATIONS Medication SIG (Take, Route, Frequency, Duration) Notes Start Da te End Date Status Vanicream - as directed Externally A ctive Apixaban 2.5 MG as directed Orally A ctive Gabapentin 600 MG 1 tab Orally three times daily Active Zinc Sulfate 220 (50 Zn) MG 1 capsule Orally Once a day for 30 day(s) Active Ipratropium-Albuterol 0.5-2.5 (3) MG/3ML 3 ml as needed Inha lation every 6 hrs Active Lidocaine 4 % 1 application as needed Externally Three times a day Active Baclofen 10 MG/20ML as directed Intrathecal Active Bacid - as directed Orally Active Ascorbic Acid 500 MG 1 tablet Orally Once a day for 30 day(s) Active fentaNYL 100 MCG/HR 1 patch to skin Transdermal Active Docusate Sodium 100 MG 1 capsule as needed Orally Once a day for 30 day(s) Active Latanoprost 0.005 % 1 drop into affected eye in the evening Ophthalmic Once a day Active HumaLOG KwikPen 100 UNIT/ML as directed Subcutaneous Active HumuLIN R 100 UNIT/ML 30 units in the morning, 20 units at noon, 20 units in the evening subcutaneously three times daily Active Senna Concentrate Active Milk of Magnesia 400 MG/5ML 5 ml at least 4 hours betw een doses as needed Orally Four times a day Active glipiZIDE XL 10 MG 1 tablet Orally twice daily Active Bisacodyl Laxative 10 MG 1 suppository as needed Rect al Once a day for 30 day(s) Active Ammonium Lactate 12 % 1 application Externally Twice a day Active Thera-M - as directed Orally Active Protonix 40 MG 1 tablet Orally Once a day for 30 day(s) Active DULoxetine HCl 60 MG 1 capsule Orally Once a day for 30 day(s) Active Insulin Detemir 100 UNIT/ML as directed Subcutaneous Active amLODIPine Besylate-Valsartan 10-160 MG 1 tablet Orall y Once a day for 30 day(s) Active Tylenol 325 MG 1 tablet as needed Orally every 4 hrs Active HumuLIN N 100 UNIT/ML 60 units Subcutaneous bid Active Metoprolol Succinate 50 MG 1 capsule Orally Once a day for 30 day(s) Active oxyCODONE HCl 5 MG/5ML 5 ml as needed Orally every 6 hrs Active Salmeterol Xinafoate 50 MCG/DOSE 1 puff Inhalation Twice a day Active Nystatin-Triamcinolone 287748-0.1 UNIT/GM 1 application Exte rnally Twice a day Active Mucinex 600 MG 1 tablet as needed Orally every 12 hrs Active PROCEDURES No Information RESULTS No Results REASON FOR VISIT IN PAIN MEDICAL (GENERAL) HISTORY Type Description Date Medical History Insulin-dependent diabetes uncontrolled Medical History left foot osteomyelitis with gangrene culture positive for MRSA and Escherichia coli Medical History hypertension Medical History hypercholesterolemia Medical History tobacco abuse Medical History glaucoma Medical History 10/02/2012 osteomyelitis of l eft great toe status post amputation discharged home on 10/08 with doxycycline for 10 days Medical History Coronary artery disease with stent placement 2001 [facility] / Dr Grullon Medical History sleep apnea Medical History osteoarthritis Medical History low testosterone Medical History degenerative hip disease Medical History stents placed Medical History Dermatitis HLA B27 negative 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 Medical History melanoma on left eye lid Medical History charcot foot- left foot Medical History Afib Surgical History melanoma left eyelid 1998 Surgical History right shoulder rotator cuff repair 1998 Surgical History cardiac cathertization, stent placement 2001 Surgical History C-6 corpectomy and fusion C- 5, C-6 with fibular strut graft and in ant-cer anterior cervical plate 2002 Surgical History left foot, digits 4, 5 2010 Surgical History amputation left foot, great toe 10/03/19 Surgical History left foot bone debridement 12/19/2012 Surgical History stents placed Right common a nd external iliac, left common and external iliac 02/09/2016 Surgical History debridment of foot 10/2019 Surgical History stent placed in right 10/2019 Hospitalization History pancreatitis 2008 Hospitalization History left foot infection 09/30/2012 Hospitalization History left foot infection 01/16/2013 Hospitalization History left foot infection 02/06/13 Hospitalization History blood transfusion 02/13/13 Hospitalization History left leg infection 11/06/15 Hospitalization History leg swelling january 2016 Hospitalization History cellulitis and pain 04/06/16 - 04/08 Hospitalization History infection in left leg december 2016 Hospitalization History infection in left leg 10/11/17-10/19/17 Hospitalization History infection, low oxygen 01/2019 Hospitalization History weakness,unablt to ambulate 03/2019 Hospitalization History Infection in foot 10/2019 Goals Section No Information Health Concerns No Information MEDICAL EQUIPMENT No Information MENTAL STATUS No Information FUNCTIONAL STATUS No Information ASSESSMENTS No Information PLAN OF TREATMENT Next Appt Details Provider Name:Anatoliy Hubbard, 2021-03-25 01:00:00 PM, [address], , [place], [address], Insurance Providers Payer Name Payer Address Payer Phone Insured Name Patient Relati onship to Insured Coverage Start Date Coverage End Date [facility] [address] [id number] DIANA OLIVERA self MEDICARE Part A and [address] [place] [phone] DIANA OLIVERA self
[2021-04-30 17:52] LABS: ERYTHROCYTE SEDIMENTATION RATE 35 mm/hr (0-20)
--- OUTSIDE RECORDS SUMMARY | 2021-04-30 17:53 | CCD ---
Author Author [facility] Organization [facility] Address Unknown Phone Unavailable Care Team Providers Care Newspaper Photographer Name Role Phone WILFRID, F JOHNNY DO Unavailable Unavailable WILFRID, F JOHNNY DO Unavailable Unavailable WILFRID, F JOHNNY DO Unavailable Unavailable WILFRID, F JOHNNY DO Unavailable Unavailable WILFRID, F JOHNNY DO Unavailable Unavailable WILFRID, F JOHNNY DO Unavailable Unavailable WILFRID, F JOHNNY DO Unavailable Unavailable WILFRID, F JOHNNY DO Unavailable Unavailable WILFRID, F JOHNNY DO Unavailable Unavailable WILFRID, F JOHNNY DO Unavailable Unavailable WILFRID, F JOHNNY DO Unavailable Unavailable WILFRID, F JOHNNY DO Unavailable Unavailable WILFIRD, F JOHNNY DO Unavailable Unavailable WILFRID, F JOHNNY DO Unavailable Unavailable WILFRID, F JOHNNY DO Unavailable Unavailable WILFRID, F JOHNNY DO Unavailable Unavailable WILFRID, F JOHNNY DO Unavailable Unavailable WILFRID, F JOHNNY DO Unavailable Unavailable WILFRID, F JOHNNY DO Unavailable Unavailable WILFRID, F JOHNNY DO Unavailable Unavailable WILFRID, F JOHNNY DO Unavailable Unavailable WILFRID, F JOHNNY DO Unavailable Unavailable WILFRID, F JOHNNY DO Unavailable Unavailable WILFRID, F JOHNNY DO Unavailable Unavailable WILFRID, F JOHNNY DO Unavailable Unavailable WILFRID, F JOHNNY DO Unavailable Unavailable WILFRID, F JOHNNY DO Unavailable Unavailable WILFRID, F JOHNNY DO Unavailable Unavailable WILFRID, F JOHNNY DO Unavailable Unavailable WILFRID, F JOHNNY DO Unavailable Unavailable WILFRID, F JOHNNY DO Unavailable Unavailable WILFRID, F JOHNNY DO Unavailable Unavailable WILFRID, F JOHNNY DO Unavailable Unavailable WILFRID, F JOHNNY DO Unavailable Unavailable SYSTEM IN, NOT IN PROVIDER Unavailable Unavailable Geraldine WALKER MD Unavailable Unavailable Geraldine WALKER MD Unavailable Unavailable Geraldine WALKER MD Unavailable Unavailable ABBIE BECERRIL MD Unavailable Unavailable ABBIE BECERRIL MD Unavailable Unavailable ABBIE BECERRIL MD Unavailable Unavailable ABBIE BECERRIL MD Unavailable Unavailable ABBIE BECERRIL MD Unavailable Unavailable ABBIE BECERRIL MD Unavailable Unavailable ABBIE BECERRIL MD Unavailable Unavailable ABBIE BECERRIL MD Unavailable Unavailable ABBIE BEECRRIL MD Unavailable Unavailable ABBIE BECERRIL MD Unavailable Unavailable ABBIE BECERRIL MD Unavailable Unavailable ABBIE BECERRIL MD Unavailable Unavailable ABBIE BECERRIL MD Unavailable Unavailable ABBIE BECERRIL MD Unavailable Unavailable Kunnumpurath, F Karina MD Unavailable Unavailable [place]ath, F Karina MD Unavailable Unavailable [place], F Karina MD Unavailable Unavailable [place], F Karina MD Unavailable Unavailable [place], F Karina MD Unavailable Unavailable [place], F Karina MD Unavailable Unavailable [place], F Karina MD Unavailable Unavailable [place], F Karina MD Unavailable Unavailable [place], F Karina MD Unavailable Unavailable [place], F Karina MD Unavailable Unavailable [place]ath, F Karina MD Unavailable Unavailable [place]ath, F Karina MD Unavailable Unavailable [place]unn[place]ath, F Karina MD Unavailable Unavailable [place]ath, F Karina MD Unavailable Unavailable [place]unn[place]ath, F Karina MD Unavailable Unavailable [place]unn[place]ath, F Karina MD Unavailable Unavailable Kunnumpurath, F Karina MD Unavailable Unavailable Kunnumpurath, F Karina MD Unavailable Unavailable Kunnumpurath, F Karina MD Unavailable Unavailable Kunnumpurath, F Karina MD Unavailable Unavailable Kunn[place]urath, F Karina MD Unavailable Unavailable Kunn[place]ath, F Karina MD Unavailable Unavailable [place]ath, F Karina MD Unavailable Unavailable Kunn[place]ath, F Karina MD Unavailable Unavailable [place]ath, F Karina MD Unavailable Unavailable [place]ath, F Karina MD Unavailable Unavailable [place]ath, F Karina MD Unavailable Unavailable [place], F Karina MD Unavailable Unavailable [place]ath, F Karina MD Unavailable Unavailable [place], F Karina MD Unavailable Unavailable [place], F Karina MD Unavailable Unavailable [place]ath, F Karina MD Unavailable Unavailable Kunn[place]urath, F Karina MD Unavailable Unavailable Kunnumpurath, F Karina MD Unavailable Unavailable Kunnumpurath, F Karina MD Unavailable Unavailable Kunnumpurath, F Karina MD Unavailable Unavailable Kunnumpurath, F Karina MD Unavailable Unavailable Kunnumpurath, F Karina MD Unavailable Unavailable Kunnumpurath, F Karina MD Unavailable Unavailable Kunn[place]ath, F Karina MD Unavailable Unavailable Kunn[place]ath, F Karina MD Unavailable Unavailable [place], F Karina MD Unavailable Unavailable [place], F Karina MD Unavailable Unavailable [place], F Karina MD Unavailable Unavailable [place], F Karina MD Unavailable Unavailable K[place]urath, F Karina MD Unavailable Unavailable WIL CARCAMO, FABRICIO GARCIA Unavailable Unavailable GIBBONS, RYAN MARKETING FINANCE MANAGER Unavailable Unavailable GIBBONS, RYAN MARKETING FINANCE MANAGER Unavailable Unavailable GIBBONS, RYAN MARKETING FINANCE MANAGER Unavailable Unavailable Kunnumpurath, F Karina MD Unavailable Unavailable Kunnumpurath, F Karina MD Unavailable Unavailable Kunnumpurath, F Karina MD Unavailable Unavailable [place]urath, F Karina MD Unavailable Unavailable [place]unnumpurath, F Karina MD Unavailable Unavailable [place]ath, F Karina MD Unavailable Unavailable K[place]urath, F Karina MD Unavailable Unavailable Kunnumpurath, F Karina MD Unavailable Unavailable Kunnumpurath, F Karina MD Unavailable Unavailable Kunnumpurath, F Karina MD Unavailable Unavailable Kunnumpurath, F Karina MD Unavailable Unavailable Kunnumpurath, F Karina MD Unavailable Unavailable Kunnumpurath, F Karina MD Unavailable Unavailable Kunn[place]urath, F Karina MD Unavailable Unavailable Kunnumpurath, F Karina MD Unavailable Unavailable Kunnumpurath, F Karina MD Unavailable Unavailable K[place]urath, F Karina MD Unavailable Unavailable Kunnumpurath, F Karina MD Unavailable Unavailable Kunnumpurath, F Karina MD Unavailable Unavailable Kunnumpurath, F Karina MD Unavailable Unavailable Kunnumpurath, F Karina MD Unavailable Unavailable Kunnumpurath, F Karina MD Unavailable Unavailable Kunnumpurath, F Karina MD Unavailable Unavailable Kunnumpurath, F Karina MD Unavailable Unavailable Kunnumpurath, F Karina MD Unavailable Unavailable Kunnumpurath, F Karina MD Unavailable Unavailable Kunnumpurath, F Karina MD Unavailable Unavailable Kunnumpurath, F Karina MD Unavailable Unavailable Kunnumpurath, F Karina MD Unavailable Unavailable Kunnumpurath, F Karina MD Unavailable Unavailable Kunn[place]ath, F Karina MD Unavailable Unavailable [place]ath, F Karina MD Unavailable Unavailable Kunn[place]urath, F Karina MD Unavailable Unavailable K[place]ath, F Karina MD Unavailable Unavailable [place], F Karina MD Unavailable Unavailable [place]ath, F Karina MD Unavailable Unavailable [place], F Karina MD Unavailable Unavailable [place], F Karina MD Unavailable Unavailable [place], F Karina MD Unavailable Unavailable [place], F Karina MD Unavailable Unavailable [place], F Karina MD Unavailable Unavailable [place], F Karina MD Unavailable Unavailable [place], F Karina MD Unavailable Unavailable [place], F Karina MD Unavailable Unavailable [place], F Karina MD Unavailable Unavailable [place], F Kraina MD Unavailable Unavailable Katie, Alonzo Rg MD Unavailable Unavailable Katie, Alonzo Rg MD Unavailable Unavailable Katie, Alonzo Rg MD Unavailable Unavailable Katie, Alonzo Rg MD Unavailable Unavailable Katie, Alonzo Rg MD Unavailable Unavailable Katie, Alonzo Rg MD Unavailable Unavailable Katie, Alonzo Rg MD Unavailable Unavailable Katie, Alonzo Rg MD Unavailable Unavailable Katie, Alonzo Rg MD Unavailable Unavailable Katie, Alonzo Rg MD Unavailable Unavailable Katie, Alonzo Rg MD Unavailable Unavailable Katie, Alonzo Rg MD Unavailable Unavailable MINISTERIO, MADDI MD Unavailable Unavailable MINISTERIO, MADDI MD Unavailable Unavailable MINISTERIO, MADDI MD Unavailable Unavailable MINISTERIO, MADDI MD Unavailable Unavailable MINISTERIO, MADDI MD Unavailable Unavailable MINISTERIO, MADDI MD Unavailable Unavailable MINISTERIO, MADDI MD Unavailable Unavailable MINISTERIO, MADDI MD Unavailable Unavailable MINISTERIO, MADDI MD Unavailable Unavailable MINISTERIO, MADDI MD Unavailable Unavailable MINISTERIO, MADDI MD Unavailable Unavailable MINISTERIO, MADDI MD Unavailable Unavailable MINISTERIO, MADDI MD Unavailable Unavailable MINISTERIO, MADDI MD Unavailable Unavailable MINISTERIO, MADDI MD Unavailable Unavailable MINISTERIO, MADDI MD Unavailable Unavailable MINISTERIO, MADDI MD Unavailable Unavailable [facility] [place] Unavailable Unavailable [place] Falanga, A Wendi EQUITY STRUCTURER Unavailable Unavailable [place] Falanga, A Wendi EQUITY STRUCTURER Unavailable Unavailable Jd Falanga, A Wendi EQUITY STRUCTURER Unavailable Unavailable [place] Falanga, A Wendi EQUITY STRUCTURER Unavailable Unavailable Jd Falanga, A Wendi EQUITY STRUCTURER Unavailable Unavailable Jd Falanga, A Wendi EQUITY STRUCTURER Unavailable Unavailable [place] Falanga, A Wendi EQUITY STRUCTURER Unavailable Unavailable Jd Falanga, A Wendi EQUITY STRUCTURER Unavailable Unavailable [place] Falanga, A Wendi EQUITY STRUCTURER Unavailable Unavailable [place] Falanga, A Wendi EQUITY STRUCTURER Unavailable Unavailable Jd Falanga, A Wendi EQUITY STRUCTURER Unavailable Unavailable Jd Falanga, A Wendi EQUITY STRUCTURER Unavailable Unavailable Jd Falanga, A Wendi EQUITY STRUCTURER Unavailable Unavailable Jd Falanga, A Wendi EQUITY STRUCTURER Unavailable Unavailable [place] Falanga, A Wendi EQUITY STRUCTURER Unavailable Unavailable [place] Falanga, A Wendi EQUITY STRUCTURER Unavailable Unavailable [place] Falanga, A Wendi EQUITY STRUCTURER Unavailable Unavailable Jd Falanga, A Wendi EQUITY STRUCTURER Unavailable Unavailable Jd Falanga, A Wendi EQUITY STRUCTURER Unavailable Unavailable [place] Falanga, A Wendi EQUITY STRUCTURER Unavailable Unavailable [place] Falanga, A Wendi EQUITY STRUCTURER Unavailable Unavailable Jd Falanga, A Wendi EQUITY STRUCTURER Unavailable Unavailable [place] Falanga, A Wendi EQUITY STRUCTURER Unavailable Unavailable [place] Falanga, A Wendi EQUITY STRUCTURER Unavailable Unavailable [place] Falanga, A Wendi EQUITY STRUCTURER Unavailable Unavailable [place] Falanga, A Wendi EQUITY STRUCTURER Unavailable Unavailable Jd Falanga, A Wendi EQUITY STRUCTURER Unavailable Unavailable [place] Falanga, A Wendi EQUITY STRUCTURER Unavailable Unavailable [place] Falanga, A Wendi EQUITY STRUCTURER Unavailable Unavailable KAMLA LANIER MD Unavailable Unavailable BLISS, FRANKO MD Unavailable Unavailable BLISS, FRANKO MD Unavailable Unavailable BLISS, FRANKO MD Unavailable Unavailable BLISS, FRANKO MD Unavailable Unavailable BLISS, FRANKO MD Unavailable Unavailable BLISS, FRANKO MD Unavailable Unavailable BLISS, FRANKO MD Unavailable Unavailable BLISS, FRANKO MD Unavailable Unavailable BLISS, FRANKO MD Unavailable Unavailable BLISS, FRANKO MD Unavailable Unavailable BLISS, FRANKO MD Unavailable Unavailable BLISS, FRANKO MD Unavailable Unavailable BLISS, FRANKO MD Unavailable Unavailable BLISS, FRANKO MD Unavailable Unavailable BLISS, FRANKO MD Unavailable Unavailable BLISS, FRANKO MD Unavailable Unavailable BLISS, FRANKO MD Unavailable Unavailable BLISS, FRANKO MD Unavailable Unavailable BLISS, FRANKO MD Unavailable Unavailable BLISS, FRANKO MD Unavailable Unavailable BLISS, FRANKO MD Unavailable Unavailable BLISS, FRANKO MD Unavailable Unavailable BLISS, FRANKO MD Unavailable Unavailable BLISS, FRANKO MD Unavailable Unavailable BLISS, FRANKO MD Unavailable Unavailable BLISS, FRANKO MD Unavailable Unavailable BLISS, FRANKO MD Unavailable Unavailable BLISS, FRANKO MD Unavailable Unavailable BLISS, FRANKO MD Unavailable Unavailable BLISS, FRANKO MD Unavailable Unavailable BLISS, FRANKO MD Unavailable Unavailable BLISS, FRANKO MD Unavailable Unavailable BLISS, FRANKO MD Unavailable Unavailable BLISS, FRANKO MD Unavailable Unavailable BLISS, FRANKO MD Unavailable Unavailable BLISS, FRANKO MD Unavailable Unavailable BLISS, FRANKO MD Unavailable Unavailable BLISS, FRANKO MD Unavailable Unavailable BLISS, FRANKO MD Unavailable Unavailable BLISS, FRANKO MD Unavailable Unavailable BLISS, FRANKO MD Unavailable Unavailable BLISS, FRANKO MD Unavailable Unavailable BLISS, FRANKO MD Unavailable Unavailable BLISS, FRANKO MD Unavailable Unavailable BLISS, FRANKO MD Unavailable Unavailable BLISS, FRANKO MD Unavailable Unavailable BLISS, FRANKO MD Unavailable Unavailable BLISS, FRANKO MD Unavailable Unavailable BLISS, FRANKO MD Unavailable Unavailable BLISS, FRANKO MD Unavailable Unavailable BLISS, FRANKO MD Unavailable Unavailable BLISS, FRANKO MD Unavailable Unavailable BLISS, FRANKO MD Unavailable Unavailable BLISS, FRANKO MD Unavailable Unavailable FRANKO BLISS MD Unavailable Unavailable FRANKO BLISS MD Unavailable Unavailable FRANKO BLISS MD Unavailable Unavailable FRANKO BLISS MD Unavailable Unavailable FRANKO BLISS MD Unavailable Unavailable FRANKO BLISS MD Unavailable Unavailable FRANKO BLISS MD Unavailable Unavailable FRANKO BLISS MD Unavailable Unavailable FRANKO BLISS MD Unavailable Unavailable FRANKO BLISS MD Unavailable Unavailable FRANKO BLISS MD Unavailable Unavailable FRANKO BLISS MD Unavailable Unavailable FRANKO BLISS MD Unavailable Unavailable FRANKO BLISS MD Unavailable Unavailable FRANKO BLISS MD Unavailable Unavailable FRANKO BLISS MD Unavailable Unavailable TURRIN, RIGO Unavailable Unavailable TURRIN, RIGO Unavailable Unavailable TURRIN, RIGO Unavailable Unavailable TURRIN, RIGO Unavailable Unavailable Geraldine LANIER MD Unavailable Unavailable Geraldine LANIER MD Unavailable Unavailable NOT, SPECIFIED Unavailable Unavailable Suman FRANKS MD Unavailable Unavailable Suman FRANKS MD Unavailable Unavailable Suman FRANKS MD Unavailable Unavailable Suman FRANKS MD Unavailable Unavailable Suman FRANKS MD Unavailable Unavailable Suman FRANKS MD Unavailable Unavailable MAJAK, R MAHAEMD DPM Unavailable Unavailable MAJAK, R MAHAMED DPM Unavailable Unavailable MAJAK, R MAHAMED DPM Unavailable Unavailable MAJAK, R MAHAMED DPM Unavailable Unavailable MAJAK, R MAHAMED DPM Unavailable Unavailable MAJAK, R MAHAMED DPM Unavailable Unavailable MAJAK, R MAHAMED DPM Unavailable Unavailable MAJAK, R MAHAMED DPM Unavailable Unavailable MAJAK, R MAHAMED DPM Unavailable Unavailable MAJAK, R MAHAMED DPM Unavailable Unavailable MAJAK, R MAHAMED DPM Unavailable Unavailable MAJAK, R MAHAMED DPM Unavailable Unavailable MAJAK, R MAHAMED DPM Unavailable Unavailable MAJAK, R MAHAMED DPM Unavailable Unavailable MAJAK, R MAHAMED DPM Unavailable Unavailable MAJAK, R MAHAMED DPM Unavailable Unavailable MAJAK, R MAHAMED DPM Unavailable Unavailable MAJAK, R MAHAMED DPM Unavailable Unavailable MAJAK, R MAHAMED DPM Unavailable Unavailable MAJAK, R MAHAMED DPM Unavailable Unavailable MAJAK, R MAHAMED DPM Unavailable Unavailable MAJAK, R MAHAMED DPM Unavailable Unavailable MAJAK, R MAHAMED DPM Unavailable Unavailable MAJAK, R MAHAMED DPM Unavailable Unavailable MAJAK, R MAHAMED DPM Unavailable Unavailable MAJAK, R MAHAMED DPM Unavailable Unavailable MAJAK, R MAHAMED DPM Unavailable Unavailable MAJAK, R MAHAMED DPM Unavailable Unavailable MAJAK, R MAHAMED DPM Unavailable Unavailable MAJAK, R MAHAMED DPM Unavailable Unavailable MAJAK, R MAHAMED DPM Unavailable Unavailable Radha, B Adam MARKETING FINANCE MANAGER Unavailable Unavailable Radha, B Adam MARKETING FINANCE MANAGER Unavailable Unavailable Radha, B Adam MARKETING FINANCE MANAGER Unavailable Unavailable Radha, B Adam MARKETING FINANCE MANAGER Unavailable Unavailable Radha, B Adam MARKETING FINANCE MANAGER Unavailable Unavailable Radha, B Adam MARKETING FINANCE MANAGER Unavailable Unavailable Radha, B Adam MARKETING FINANCE MANAGER Unavailable Unavailable Radha, B Adam MARKETING FINANCE MANAGER Unavailable Unavailable Radha, B Adam MARKETING FINANCE MANAGER Unavailable Unavailable Radha, B Adam MARKETING FINANCE MANAGER Unavailable Unavailable KAMBHAMPATI DO, ADELA Unavailable Unavailable ERMA ALVARES MD Unavailable Unavailable ERMA ALVARES MD Unavailable Unavailable ERMA ALVARES MD Unavailable Unavailable ERMA ALVARES MD Unavailable Unavailable ERMA ALVARES MD Unavailable Unavailable ERMA ALVARES MD Unavailable Unavailable ERMA ALVARES MD Unavailable Unavailable ERMA ALVARES MD Unavailable Unavailable ERMA ALVARES MD Unavailable Unavailable ERMA ALVARES MD Unavailable Unavailable ERMA ALVARES MD Unavailable Unavailable ERMA ALVARES MD Unavailable Unavailable ERMA ALVARES MD Unavailable Unavailable ERMA ALVARES MD Unavailable Unavailable ERMA ALVARES MD Unavailable Unavailable ABBIE BECERRIL MD Unavailable Unavailable Jose Luis Gibbons MD Unavailable Unavailable Jose Luis Gibbons MD Unavailable Unavailable Jose Luis Gibbons MD Unavailable Unavailable Jose Luis Gibbons MD Unavailable Unavailable Jose Luis Gibbons MD Unavailable Unavailable Jose Luis Gibbons MD Unavailable Unavailable Jose Luis Gibbons MD Unavailable Unavailable Jose Luis Gibbons MD Unavailable Unavailable Jose Luis Gibbons MD Unavailable Unavailable Jose Luis Gibbons MD Unavailable Unavailable Antonia Gibbonsazadama MD Unavailable Unavailable Antonia Gibbonsazadama MD Unavailable Unavailable Jose Luis Gibbons MD Unavailable Unavailable Jose Luis Gibbons MD Unavailable Unavailable Jose Luis Gibbons MD Unavailable Unavailable Jose Luis Gibbons MD Unavailable Unavailable Jose Luis Gibbons MD Unavailable Unavailable Jose Luis Gibbons MD Unavailable Unavailable TASNEEM WALKER MD Unavailable Unavailable Robert Avila MD Unavailable Unavailable Robert Avila MD Unavailable Unavailable Robert Avila MD Unavailable Unavailable Robert Avila MD Unavailable Unavailable Robert Avila MD Unavailable Unavailable Robert Avila MD Unavailable Unavailable Robert Avila MD Unavailable Unavailable Robert Avila MD Unavailable Unavailable Robert Avila MD Unavailable Unavailable Robert Avila MD Unavailable Unavailable Robert Avila MD Unavailable Unavailable Robert Avila MD Unavailable Unavailable Robert Avila MD Unavailable Unavailable Robert Avila MD Unavailable Unavailable Robert Avila MD Unavailable Unavailable Robert Avila MD Unavailable Unavailable Robert Avila MD Unavailable Unavailable Robert Avila MD Unavailable Unavailable Robert Avila MD Unavailable Unavailable Robert Avila MD Unavailable Unavailable NAMASSCody CABRERA MD Unavailable Unavailable NAMASSCody CABRERA MD Unavailable Unavailable NAMASSIVACody MEADE MD Unavailable Unavailable NAMASSCody CABRERA MD Unavailable Unavailable NAMASSIVAYACody MD Unavailable Unavailable NAMASSIVAYACody MD Unavailable Unavailable NAMASSIVAYACody MD Unavailable Unavailable NAMASSIVACody MEADE MD Unavailable Unavailable NAMASSIVACody MEADE MD Unavailable Unavailable NAMASSCody CABRERA MD Unavailable Unavailable NAMASSCody CABRERA MD Unavailable Unavailable NAMASSIVACody MEADE MD Unavailable Unavailable NAMASSCody CABRERA MD Unavailable Unavailable NAMASSIVACody MEADE MD Unavailable Unavailable NAMASSCody CABRERA MD Unavailable Unavailable NAMASSIVACody MEADE MD Unavailable Unavailable NAMASSCody CABRERA MD Unavailable Unavailable NAMASSIVAYACody MD Unavailable Unavailable NAMASSCody CABRERA MD Unavailable Unavailable NAMASSIVACody MEADE MD Unavailable Unavailable NAMASSCody CABRERA MD Unavailable Unavailable NAMASSCody CABRERA MD Unavailable Unavailable NAMASSCody CABRERA MD Unavailable Unavailable NAMASSCody CABRERA MD Unavailable Unavailable NAMASSCody CABRERA MD Unavailable Unavailable NAMASSCody CABRERA MD Unavailable Unavailable NAMASSCody CABRERA MD Unavailable Unavailable NAMASSCody CABRERA MD Unavailable Unavailable NAMASSCody CABRERA MD Unavailable Unavailable NAMASSCody CABRERA MD Unavailable Unavailable Re-disclosure Warning The records that you are about to access may contain information from federally-assisted alcohol or drug abuse programs. If such information is present, then the following federally mandated warning applies: This information has been disclosed to you from records protected by federal confidentiality rules (42 CFR part 2). The federal rules prohibit you from making any further disclosure of this information unless further disclosure is expressly permitted by the written consent of the person to whom it pertains or as otherwise permitted by 42 CFR part 2. A general authorization for the release of medical or other information is NOT sufficient for this purpose. The Federal rules restrict any use of the information to criminally investigate or prosecute any alcohol or drug abuse patient.The records that you are about to access may contain highly sensitive health information, the redisclosure of which is protected by Article 27-F of the [facility] Public Health law. If you continue you may have access to information: Regarding HIV / AIDS; Provided by facilities licensed or operated by the [facility] Office of Mental Health; or Provided by the [facility] Office for People With Developmental Disabilities. If such information is present, then the following [facility] mandated warning applies: This information has been disclosed to you from confidential records which are protected by state law. State law prohibits you from making any further disclosure of this information without the specific written consent of the person to whom it pertains, or as otherwise permitted by law. Any unauthorized further disclosure in violation of state law may result in a fine or halfway sentence or both. A general authorization for the release of medical or other information is NOT sufficient authorization for further disc losure. Allergies and Adverse Reactions Type Description Substance Reaction Status Data Source(s ) No Known Drug Allergies No Known Drug Allergies [facility] Propensity to adverse reactions NO KNOWN ALLERGIES NO KNOWN ALLERGIES [facility] Propensity to adverse reactions NO ALLERGIES ON FILE NO ALLERGIES ON FILE [facility] Miscellaneous allergy ADHESIVE TAPE ADHESIVE TAPE [facility] Family History Family Member Name Family Member Gender Family Member Status Date o f Status Description Data Source(s) Unknown Female Problem [facility] ([facility] Encounters Encounter Providers Location Date Indications Data Source(s ) Outpatient Attender: FRANKO BLISS MDConsultant: Karina rivera MD 03/29/2021 01:21:00 PM EDT - 03/29/2021 01:21:00 PM EDT [facility] Outpatient Attender: Karina Mills MD 03/16/2021 12:30:00 PM EDT E11.9,I10,[id number] [facility] E11.9,I10,[id number] Outpatient Attender: Karina Mills MDConsultant: Karina mott MD 03/11/2021 02:41:00 PM EDT - 03/11/2021 02:41:00 PM EDT [facility] Unknown [address] [facility] [address] 02/09/2021 12:00:00 AM EDT eC1 ([facility]) Outpatient Attender: FRANKO BLISS MDConsultant: Karina rivera MD 10/08/2020 07:19:00 AM EDT - 10/08/2020 07:29:00 AM EDT [facility] Outpatient Attender: FRANKO BLISS MDConsultant: Karina rivera MD 09/29/2020 06:58:00 AM EDT - 09/29/2020 07:08:00 AM EDT [facility] Inpatient Attender: Adam HORNE ttender: JOHNNY YUEN DOConsultant: Karina Mills MD 09/23/2020 09:22:00 AM [facility] - 09/25/2020 12:10:00 PM [facility] Patient discharged. Outpatient Attender: Adam Garcia NP 03/2021 02:52:00 PM [facility] - 09/23/2020 09:22:00 AM [facility] Outpatient Attender: FRANKO BLISS MDConsultant: Karina rivera MD 09/22/2020 07:13:00 AM [facility] - 09/22/2020 07:23:00 AM [facility] Outpatient Attender: [facility] 09/22/2020 06:0 0:00 AM [facility] Outpatient Attender: FRANKO BLISS MDRef errer: FRANKO BLISS MDConsultant: Karina Mills MD 09/21/2020 08:40:00 PM [facility] 09/21/2020 08:50:00 PM [facility] Outpatient Attender: FRANKO BLISS MDConsultant: Karina rivera MD 09/18/2020 08:07:00 AM EST - 09/18/2020 08:17:00 AM [facility] Outpatient Attender: FRANKO BLISS MDConsultant: Karina rivera MD 09/17/2020 07:34:00 AM EST - 09/17/2020 07:44:00 AM [facility] Outpatient Referrer: RYAN GIBBONS NP 09/12/2020 12:00:00 A M [facility] EMERGENCY Attender: ADELA WELLER DO 5F-ER 09/11/2020 11:52:00 AM EST - 09/11/2020 08:00:00 PM EST [facility] Patient discharged. Inpatient Attender: Arcenio Wilson MDAt tender: NASIR FRANKS MDAdmitter: Arcenio Wilson MD [id number] 09/11/2020 12:00:00 AM EST - 09/14/2020 04:27:00 PM EST Cellulitis of left lower limb [facility] Cellulitis of left lower limb Patient discharged. INPATIENT Attender: Robert Avila MDAtten silvia: MADDI MANDEL MDAttender: RADHA DE LA TORRE MDAdmitter: RADHA DE LA TORRE MDConsultant: PROMISE AWAN MDConsultant: ERMA ALVARES MD [id number] 09/01/2020 01:25:00 PM EST - 09/07/2020 04:47:00 PM EST [facility] Patient discharged. Outpatient Referrer: [facility] 09/01/2020 11:50:0 0 AM [facility] pneumonia Inpatient Attender: Wendi truong FNPAttender: RIGO GEConsultant: Karina Mills MD 08/31/2020 12:0 8:00 PM EST - 09/01/2020 11:50:00 AM [facility] Patient discharged. Outpatient Attender: [facility] 08/31/2020 10:0 5:00 AM [facility] Emergency Attender: RIGO GE 2020 09:33:00 AM EST - 08/31/2020 12:08:00 PM [facility] Outpatient Attender: FRANKO BLISS MDConsultant: Karina rivera MD 08/30/2020 06:32:00 PM [facility] 08/30/2020 06:42:00 PM [facility] Outpatient Attender: FRANKO BLISS MDConsultant: Karina rivera MD 08/26/2020 08:31:00 AM [facility] 08/26/2020 08:41:00 AM [facility] Outpatient Attender: FRANKO BLISS MDConsultant: Karina rivera MD 08/25/2020 07:00:00 AM [facility] 08/25/2020 07:10:00 AM [facility] Inpatient Attender: ABBIE BECERRIL MDAttender: ABBIE BECERRIL MDAttender: KAMLA LANIER MDAttender: KAMLA LANIER MDAttender: TASNEEM WALKER MDAttender: TASNEEM WALKER MDAdmitter: TASNEEM WALKER MD [id number] 08/11/2020 02:20:00 AM [facility] 08/24/2020 03:59:00 PM [facility] Patient discharged. Outpatient Attender: [facility] 08/10/2020 07:0 0:00 PM [facility] Emergency Attender: RIGO GEConsultant: Karina rivera MD 08/10/2020 06:53:00 PM [facility] 08/11/2020 12:26:00 AM [facility] Patient discharged. Outpatient Attender: FRANKO BLISS MDConsultant: Karina rivera MD 08/03/2020 01:47:00 PM [facility] 08/03/2020 01:57:00 PM [facility] Patient discharged. Outpatient Attender: FRANKO BLISS MDConsultant: Karina rivera MD 07/30/2020 07:28:00 AM [facility] 07/30/2020 07:38:00 AM [facility] Outpatient Attender: FRANKO BLISS MDConsultant: Karina rivera MD 07/27/2020 05:08:00 PM [facility] 07/27/2020 05:18:00 PM [facility] Outpatient Attender: FRANKO BLISS MDConsultant: Karina rivera MD 07/23/2020 03:54:00 PM [facility] - 07/23/2020 04:04:00 PM [facility] Outpatient Attender: FRANKO BLISS MDConsultant: Karina rivera MD 07/20/2020 07:42:00 PM [facility] 07/20/2020 07:53:00 PM [facility] Outpatient Attender: FRANKO BLISS MDConsultant: Karina rivera MD 07/16/2020 06:48:00 AM [facility] - 07/16/2020 06:58:00 AM [facility] Outpatient Attender: [facility] 07/10/2020 06:4 5:00 AM [facility] Inpatient Attender: Wendi truong FNPAttender: RIGO GEConsultant: Karina Mills MD 07/07/2020 03:2 3:00 PM [facility] - 07/14/2020 04:45:00 PM [facility] Patient discharged. Outpatient Attender: [facility] 07/07/2020 11:4 8:00 AM [facility] Emergency Attender: RIGO GE 2019 11:35:00 AM [facility] 07/07/2020 03:23:00 PM [facility] Outpatient Attender: FRANKO BLISS MDConsultant: Karina rivera MD 07/02/2020 06:57:00 AM [facility] - 07/02/2020 07:07:00 AM [facility] Outpatient Attender: MAHAMED BOYER [facility] 06/16 01:45:00 PM EST [facility] Outpatient Attender: FRANKO BLISS MDConsultant: Karina rivera MD 06/25/2020 07:13:00 AM [facility] - 06/25/2020 07:23:00 AM [facility] Outpatient Attender: FRANKO BLISS MDConsultant: Karina rivera MD 06/24/2020 05:39:00 PM [facility] - 06/24/2020 05:49:00 PM [facility] ([facility] [address] [facility] [id number] 06/17/2020 12:00:00 AM EST eCW1 ([facility]) Outpatient Attender: FRANKO BLISS MDConsultant: Karina rivera MD 06/04/2020 07:06:00 AM EST - 06/04/2020 07:16:00 AM EST [facility] TeleMedicine Phone E/M by Phys 11-[address] [place] [address] [place] [phone] 06/02/2020 12:00:00 AM EST eCW1 ([facility]) Outpatient Attender: FRANKO BLISS MDConsultant: Karina rivera MD 05/28/2020 09:56:00 AM EST - 05/28/2020 10:06:00 AM [facility] Outpatient Attender: FRANKO BLISS MDConsultant: Karina rivera MD 05/05/2020 07:31:00 AM EDT - 05/05/2020 07:41:00 AM EDT [facility] TeleMedicine Phone E/M by Phys 11-[address] [place] [phone] 04/21/2020 12:00:00 AM EDT eCW1 ([facility]) Outpatient Attender: MAHAMED BOYER [facility] Office 07/2019 10:00:00 AM EDT [facility] Outpatient Attender: FRANKO BLISS MDConsultant: Karina rivera MD 04/09/2020 06:42:00 AM EDT - 04/09/2020 06:52:00 AM EDT [facility] Outpatient 04/01/2020 11:58:00 AM EDT [facility] Emergency Attender: RIGO GEConsultant: Karina rivera MD 04/01/2020 11:15:00 AM EDT - 04/01/2020 03:10:00 PM EDT [facility] Patient discharged. Outpatient Attender: FRANKO BLISS MDConsultant: Karina rivera MD 03/26/2020 06:42:00 AM EDT - 03/26/2020 06:52:00 AM EDT [facility] Office Visit Attender: MAHAEMD BOYER [facility] Office 10/2019 10:45:00 AM EDT [facility] ([facility] [address] [place] [address] 03/06/2020 12:00:00 AM EDT eCW1 ([facility]) Outpatient Attender: FRANKO BLISS MDConsultant: Karina rivera MD 03/03/2020 06:38:00 PM EDT - 03/03/2020 06:48:00 PM EDT [facility] Outpatient Attender: Jose Luis Gibbons MDRef errer: Jose Luis Gibbons MDConsultant: SPECIFIED NOT 06/20/2019 12:57:54 PM EST [facility] Immunizations Vaccine Date Status Description Data Source(s) COVID-19 VACCINE Pfizer 07/24/2020 12:00:00 AM EST completed [facility] Vaccine Series Complete: NOThis Data was Submitted to [facility] Via [facility]. Medications Medication Brand Name Start Date Product Form Dose Route Admi nistrative Instructions Pharmacy Instructions Status Indications Reaction Description Data Source(s) 100 unit/mL 04/23/2021 12:00:00 AM EDT insulin pen 15 INJECT 12 UNITS SUBCUTANEOUSLY WITH MAIN MEALS THREE TIMES A DAY, PLUS SLIDING SCALE, MAX/DAY 50 UNITS INJECT 12 UNITS SUBCUTANEOUSLY WITH MAIN MEALS THREE TIMES A DAY, PLUS SLIDING SCALE, MAX/DAY 50 UNITS SOLD: 04/25/2021 [facility] 100 unit/mL (3 mL) 04/16/2021 12:00:00 AM EDT insulin pen 15 INJECT 20 UNITS UNDER THE SKIN TWO TIMES A DAY INJECT 20 UNITS UNDER THE SKIN TWO TIMES A DAY SOLD: 04/19/2021 [facility] 25 mg 04/12/2021 12:00:00 AM EDT tablet extended release 24 hr 30 TAKE ONE TABLET BY MOUTH EVERY DAY TAKE ONE TABLET BY MOUTH EVERY DAY SOLD: 04/12/2021 [facility] 100 unit/mL 03/31/2021 12:00:00 AM EDT insulin pen 15 INJECT 12 UNITS WITH 3 MAIN MEALS PER DAY PLUS SLIDING SCALE MAXIMUM DAILY DOSE = 50 UNITS INJECT 12 UNITS WITH 3 MAIN MEALS PER DAY PLUS SLIDING SCALE MAXIMUM DAILY DOSE = 50 UNITS SOLD: 03/31/2021 [facility] Ketoconazole 20 MG/ML Medicated Shampoo KETOCONAZOLE 03/15/20 12:00:00 AM EDT shampoo 120 USE SHAMPOO THREE TIMES WEEKL Y USE SHAMPOO THREE TIMES WEEKLY SOLD: 03/17/2021 [facility] 100 unit/mL (3 mL) 03/14/2021 12:00:00 AM EDT insulin pen 15 INJECT 20 UNITS UNDER THE SKIN TWO TIMES A DAY INJECT 20 UNITS UNDER THE SKIN TWO TIMES A DAY SOLD: 03/14/2021 [facility] 100 unit/mL 03/05/2021 12:00:00 AM EDT insulin pen 15 INJECT 12 UNITS WITH MAIN MEALS THREE TIMES A DAY INJECT 12 UNITS WITH MAIN MEALS THREE TIMES A DAY SOLD: 03/05/2021 [facility] 50 mcg/dose 02/24/2021 12:00:00 AM EDT blister with device 1 80 INHALE ONE PUFF BY MOUTH TWICE A DAY INHALE ONE PUFF BY MOUTH TWICE A DAY SOLD: 02/25/2021 [facility] 0.005 % 02/23/2021 12:00:00 AM EDT drops 5 INSTILL 1 DROP INTO BOTH EYES EVERY EVENING INSTILL 1 DROP INTO BOTH EYES EVERY EVENING SOLD: 02/24/2021 [facility] 80 mg 02/23/2021 12:00:00 AM EDT tablet 90 TAKE ONE TABLET BY MOUTH AT BEDTIME TAKE ONE TABLET BY MOUTH AT BEDTIME SOLD: 02/24/2021 [facility] pantoprazole 40 MG Delayed Release Oral Tablet PANTOPRAZOLE SODIUM 02/23/2021 12:00:00 AM EDT tablet,delayed release (DR/EC) 90 T GAYLA ONE TABLET BY MOUTH EVERY DAY TAKE ONE TABLET BY MOUTH EVERY DAY SOLD: 02/24/2021 [facility] 10 mg 02/23/2021 12:00:00 AM EDT tablet 90 TAKE ONE TABLET BY MOUTH EVERY DAY TAKE ONE TABLET BY MOUTH EVERY DAY SOLD: 02/24/2021 [facility] 32 gauge x 5/32" 02/09/2021 12:00:00 AM EDT needle 150 USE 5 TIMES A DAY USE 5 TIMES A DAY SOLD: 03/05/2021 [facility] 32 gauge x 5/32" 02/09/2021 12:00:00 AM EDT needle 150 USE 5 TIMES A DAY USE 5 TIMES A DAY SOLD: 04/06/2021 [facility] 32 gauge x 5/32" 02/09/2021 12:00:00 AM EDT needle 150 USE 5 TIMES A DAY USE 5 TIMES A DAY SOLD: 02/09/2021 [facility] BLOOD-GLUCOSE METER 02/04/2021 12:00:00 AM EDT misc 1 TEST BLOOD GLUCOSE THREE TIMES A DAY TEST BLOOD GLUCOSE THREE TIMES A DAY SOLD: 02/04/2021 [facility] 100 unit/mL (3 mL) 02/03/2021 12:00:00 AM EDT insulin pen 15 INJECT 20 UNITS SUBCUTANEOUSLY TWICE DAILY INJECT 20 UNITS SUBCUTANEOUSLY TWICE DAILY SOLD: 02/04/2021 [facility] 100 unit/mL 02/03/2021 12:00:00 AM EDT insulin pen 15 INJECT 12 UNITS SUBCUTANEOUSLY WITH MAIN MEALS THREE TIMES A DAY INJECT 12 UNITS SUBCUTANEOUSLY WITH MAIN MEALS THREE TIMES A DAY SOLD: 02/04/2021 [facility] 60 mg 02/03/2021 12:00:00 AM EDT capsule,delayed release (DR/EC) 90 TAKE ONE CAPSULE BY MOUTH EVERY DAY TAKE ONE CAPSULE BY MOUTH EVERY DAY SOLD: 02/04/2021 [facility] 29 gauge x 1/2" 02/03/2021 12:00:00 AM EDT needle 200 USE WITH BASAGLAR AND LEVEMIR 5 TIMES DAILY USE WITH BASAGLAR AND LEVEMIR 5 TIMES DAILY SOLD: 02/04/2021 [facility] 50 mg 02/03/2021 12:00:00 AM EDT tablet extended release 24 hr 90 TAKE ONE TABLET BY MOUTH EVERY DAY TAKE ONE TABLET BY MOUTH EVERY DAY SOLD: 02/04/2021 [facility] 5 mg 02/03/2021 12:00:00 AM EDT tablet 90 TAKE ONE TABLET BY MOUTH EVERY DAY TAKE ONE TABLET BY MOUTH EVERY DAY SOLD: 02/04/2021 [facility] 90 mcg/actuation 02/03/2021 12:00:00 AM EDT HFA aerosol inha ler 17 INHALE TWO PUFFS BY MOUTH EVERY 4 HOURS NEEDED FOR SHORTNESS OF BREATH INHALE TWO PUFFS BY MOUTH EVERY 4 HOURS NEEDED FOR SHORTNESS OF BREATH SOLD: 02/04/2021 [facility] 33 gauge 02/02/2021 12:00:00 AM EDT misc 200 TEST GLUCOSE THREE TIMES A DAY TEST GLUCOSE THREE TIMES A DAY SOLD: 02/04/2021 [facility] BLOOD SUGAR DIAGNOSTIC 02/02/2021 12:00:00 AM EDT strip 100 TEST 3 TIMES DAILY DIRECTED TEST 3 TIMES DAILY DIRECTED SOLD: 02/04/2021 [facility] 5 mg 02/02/2021 12:00:00 AM EDT tablet 180 TAKE ONE TABLET BY MOUTH TWICE A DAY TAKE ONE TABLET BY MOUTH TWICE A DAY SOLD: 02/04/2021 [facility] 600 mg 02/02/2021 12:00:00 AM EDT tablet 270 TAKE ONE TABLET BY MOUTH THREE TIMES A DAY TAKE ONE TABLET BY MOUTH THREE TIMES A DAY SOLD: 02/04/2021 [facility] vancomycin (VANCOCIN) 1250 mg in NaCl 0.9 % 261 mL (premix) 09/15/2020 12:00:00 AM EST 1250 mg Intravenous active 1,250 mg, Intravenous, Administer over 90 Minutes, Every 18 hours, First dose (after last reorder) on Mon09/15/20 at 0000, For 1 dose
Per Clinical RX Policy
[facility] Medication administered onsite Oxycodone Hydrochloride 5 MG Oral Tablet oxyCODONE (ROXICODONE) immediate release tablet 5 mg oxyCODONE (ROXICODONE) immediate release tablet 5 mg 09/14/2020 03:30:00 PM EST 5 mg Oral completed 5 mg, Oral, Once, Mon09/14/20 at 1530, For 1 dose
Oxycodone immediate release is limited to 10 mg per dose. Higher doses ( only) require Pain Service consultation and approval.
[facility] Medication administered onsite Oxycodone Hydrochloride 5 MG Oral Tablet oxyCODONE (ROXICODONE) immediate release tablet 5 mg oxyCODONE (ROXICODONE) immediate release tablet 5 mg 09/14/2020 02:15:00 AM EST 5 mg Oral completed 5 mg, Oral, Once, Mon09/14/20 at 0215, For 1 dose
Oxycodone immediate release is limited to 10 mg per dose. Higher doses ( only) require Pain Service consultation and approval.
[facility] Medication administered onsite doxycycline hyclate 100 MG Oral Capsule Doxycycline Hyclate 100 MG Oral Capsule (VIBRAMYCIN) Doxycycline Hyclate 100 MG Oral Capsule (VIBRAMYCIN) 0 09/14/2020 12:00:00 AM EST 100 mg Oral active Take 1 capsule by mouth Two Times Daily for 5 days [facility] latanoprost 0.05 MG/ML Ophthalmic Soluti on latanoprost (XALATAN) 0.005 % ophthalmic solution 1 drop latanoprost (XALATAN) 0.005 % ophthalmic solution 1 drop 09/12/2020 10:00:00 PM EST 1 [drp] Both Eyes active 1 drop, Both Eyes, Nightly, First dose on 09/12/20 at 2200, For 30 days
Located in [facility] Medication administered onsite gabapentin 300 MG Oral Capsule gabapentin (NEURONTIN) capsule 300 mg gabapentin (NEURONTIN) capsule 300 mg 09/12/2020 09:00:00 AM EST 300 mg Oral active 300 mg, Oral, Three Times D aily Standard, First dose on 09/12/20 at 0900, For 30 days [facility] Medication administered onsite atorvastatin 40 MG Oral Tablet atorvastatin (LIPITOR) tablet 80 mg atorvastatin (LIPITOR) tablet 80 mg 09/12/2020 09:00:00 AM EST 80 mg Oral active 80 mg, Oral, Daily Standard, First dose on 09/12/20 at 0900, For 30 days [facility] Medication administered onsite 60 ACTUAT salmeterol 0.05 MG/ACTUAT Dry Powder Inhaler salmeterol (SEREVENT) diskus inhaler 1 puff salmeterol (SEREVENT) diskus inhaler 1 puff 09/12/2020 09:00:00 AM EST 1 {puff} Inhalation active 1 puff, Inhalation, 2 Times Daily, First dose on 09/12/20 at 0900, For 14 days [facility] Medication administered onsite 24 HR metoprolol succinate 50 MG Extende d Release Oral Tablet metoprolol (TOPROL-XL) 24 hr tablet 50 mg metoprolol (TOPROL-XL) 24 hr tablet 50 mg 09/12/2020 09:00:00 AM EST 50 mg Oral active 50 mg, Oral, Daily Standard, First dose on 09/12/20 at 0900, For 30 days
Do not crush or chew
[facility] Medication administered onsite pantoprazole 40 MG Delayed Release Oral Tablet pantoprazole (PROTONIX) EC tablet 40 mg pantoprazole (PROTONIX) EC tablet 40 mg 09/12/2020 09:00:[address] 40 mg Oral active 40 mg, Ora l, Daily Standard, First dose on 09/12/20 at 0900, For 30 days
Do not crush or chew
[facility] Medication administered onsite POLYETHYLENE GLYCOL 3350 142 MG/ML Oral Solution polyethylene glycol (MIRALAX) packet 17 g polyethylene glycol (MIRALAX) packet 17 g 09/12/2020 0 9:00:00 AM EST 17 g Oral active 17 g, Or al, 2 Times Daily, First dose on 09/12/20 at 0900, For 30 days [facility] Medication administered onsite Amlodipine 5 MG Oral Tablet amlodipine (NORVASC) table t 10 mg amlodipine (NORVASC) tablet 10 mg 09/12/2020 09:00:00 AM EST 10 mg Oral active 10 mg, Oral, Daily Standard, First dose on 09/12/20 at 0900, For 30 doses [facility] Medication administered onsite Aspirin 81 MG Delayed Release Oral Tablet aspirin EC E C tablet 81 mg aspirin EC EC tablet 81 mg 09/12/2020 09:00:00 AM EST 81 mg Oral ac tive 81 mg, Oral, Daily Standard, First dose on 09/12/20 at 0900, For 30 days [facility] Medication administered onsite apixaban 5 MG Oral Tablet apixaban (ELIQUIS) tablet 2. 5 mg apixaban (ELIQUIS) tablet 2.5 mg 09/12/2020 09:00:00 AM EST 2.5 mg Oral acti ve 2.5 mg, Oral, 2 Times Daily, First dose on 09/12/20 at 0900, For 30 days [facility] Medication administered onsite insulin lispro (HumaLOG) injection HIGH DOSE EATING IN SULIN patients 1-22 Units 12042-271-08 09/12/2020 08:00:00 AM EST U Subcutaneous active 1-22 Units, Subcutaneous, Three Times Daily-With Meals, First dose on 09/12/20 at 0800, For 30 days
Nursing MUST open the 'SQ Insulin Dosing Charts' Sidebar Report, or, the Patient Summary or Summary Report within the ED.
[facility] Medication administered onsite sodium chloride flush 0.9 % 10 mL 09/12/2020 07:30:[address] 10 mL Intravenous active [Order 1 Star t] Name: sodium chloride flush 0.9 % 10 mL Signed Summary: 10 mL, Intravenous, Every 12 hours, First dose on 09/12/20 at 0730, For 30 days
Verify blood return before use. Flush lines with 10 mL Sodium Chloride 0.9% routinely Q12hrs & before and after infusions or blood sampling per policy followed by 2 mL Heparin 10 units/mL (UNLESS PATIENT HAS HEPARIN ALLERGY). Reference CM C-34 [facility].
[Order 1 End] [Order 2 Start] Name: heparin lock flush 10 UNIT/ML injection 20 Units Signed Summary: 20 Units (2 mL), Intravenous, Every 12 hours, First dose on 09/12/20 at 0730, For 30 days
Verify blood return before use. Flush lines with 10 mL Sodium Chloride 0.9% routinely Q12hrs & before and after infusions or blood sampling per policy followed by 2 mL Heparin 10 units/mL (UNLESS PATIENT HAS HEPARIN ALLERGY). Reference CM C-34 Central [facility].
[Order 2 End] [facility] Medication administered onsite sodium chloride flush 0.9 % 10 mL 09/12/2020 07:26:[address] 10 mL Intravenous active [Order 1 Star t] Name: sodium chloride flush 0.9 % 10 mL Signed Summary: 10 mL, Intravenous, PRN, Flushing, Starting 09/12/20 at 0726, For 30 days
Verify blood return before use. Flush lines with 10 mL Sodium Chloride 0.9% routinely Q12hrs & before and after infusions or blood sampling per policy followed by 2 mL Heparin 10 units/mL (UNLESS PATIENT HAS HEPARIN ALLERGY). Reference CM C-34 [facility].
[Order 1 End] [Order 2 Start] Name: heparin lock flush 10 UNIT/ML injection 20 Units Signed Summary: 20 Units (2 mL), Intravenous, PRN, Line Care, Flushing, Starting 09/12/20 at 0726, For 30 days
Verify blood return before use. Flush lines with 10 mL Sodium Chloride 0.9% routinely Q12hrs & before and after infusions or blood sampling per policy followed by 2 mL Heparin 10 units/mL (UNLESS PATIENT HAS HEPARIN ALLERGY). Reference CM C-34 [facility].
[Order 2 End] [facility] Medication administered onsite sodium chloride flush 0.9 % 10 mL 09/12/2020 07:26:[address] 10 mL Intravenous active [Order 1 Star t] Name: sodium chloride flush 0.9 % 10 mL Signed Summary: 10 mL, Intravenous, PRN, Flushing, Starting 09/12/20 at 0726, For 30 days
Verify blood return before use. Flush lines with 10 mL Sodium Chloride 0.9% routinely Q12hrs & before and after infusions or blood sampling per policy followed by 2 mL Heparin 10 units/mL (UNLESS PATIENT HAS HEPARIN ALLERGY). Reference CM C-34 [facility].
[Order 1 End] [Order 2 Start] Name: heparin lock flush 10 UNIT/ML injection 20 Units Signed Summary: 20 Units (2 mL), Intravenous, PRN, Line Care, Flushing, Starting 09/12/20 at 0726, For 30 days
Verify blood return before use. Flush lines with 10 mL Sodium Chloride 0.9% routinely Q12hrs & before and after infusions or blood sampling per policy followed by 2 mL Heparin 10 units/mL (UNLESS PATIENT HAS HEPARIN ALLERGY). Reference CM C-34 [facility].
[Order 2 End] [facility] Medication administered onsite sodium chloride flush 0.9 % 10 mL [id number] 09/12/2020 07:26:20 AM EST 10 mL Intravenous active 10 mL, I ntravenous, PRN, After Parenteral Nutrition, Starting 09/12/20 at 0726, For 30 days
Flush line with 10 mL Sodium Chloride 0.9 % after Parenteral Nutrition (PN).
[facility] Medication administered onsite vancomycin (VANCOCIN) 1250 mg in NaCl 0.9 % 261 mL (premix) 09/12/2020 05:00:00 AM EST 1250 mg Intravenous aborted 1,250 mg, Intravenous, Administer over 90 Minutes, Every 12 hours, First dose (after last reorder) on 09/12/20 at 0500, For 3 days
Per Clinical RX Policy
[facility] Medication administered onsite Cefazolin 2000 MG Injection ceFAZolin (ANCEF) IVPB 2 g in dextrose (premix) ceFAZolin (ANCEF) IVPB 2 g in dextrose (premix) 09/12/2020 04:15:00 AM EST 2 g Intravenous active 2 g, Int ravenous, Administer over 30 Minutes, Every 8 hours, First dose (after last reorder) on 09/12/20 at 0415, For 3 days [facility] Medication administered onsite Insulin Glargine 100 UNT/ML Injectable S olution insulin glargine (LANTUS) injection 20 Units insulin glargine (LANTUS) injection 20 Units 03:30:00 AM EST 20 U Subcutaneous active 20 Units, Subcutaneous, Nightly, First dose on 09/12/20 at 0330, For 30 days
For blood glucose less than 70 mg/dL: follow hypoglycemia protocol ( H-) and notify provider. For blood glucose values between 70 mg/dL and 100 mg/dL at bedtime: provide snack (15 grams of carbohydrates) with some protein. Administer FULL DOSE of insulin glargine (LANTUS) after snack. Record snack in I&O's. For blood glucose more than 400 mg/dL: notify provider
[facility] Medication administered onsite Glucose 0.417 MG/MG Oral Gel glucose (GLUTOSE) 40 % or al gel 15 g glucose (GLUTOSE) 40 % oral gel 15 g 09/12/2020 03:16:19 AM EST 15 g Oral active 15 g, Oral, PRN, Low blood s ugar, for gluose 55-69 mg/dl and able to take PO, Starting 09/12/20 at 0316, For 30 days [facility] Medication administered onsite dextrose 50 % IV solution 25 mL [id number] 09/12/2020 03:16:[address] 25 mL Intravenous active 25 mL, Intrav enous, PRN, Other, blood glucose <55, Starting 09/12/20 at 0316, For 30 days
Not for midline administration.
[facility] Medication administered onsite Glucagon 1 MG Injection glucagon (human recombinant) ( GLUCAGEN) injection 1 mg glucagon (human recombinant) (GLUCAGEN) injection 1 mg 09/12/2020 03:16:19 AM EST 1 mg Intramuscular active 1 mg, Intramuscular, PRN, for glucose <55 without IV access, Starting 09/12/20 at 0316, For 30 days [facility] Medication administered onsite Docusate Sodium 100 MG Oral Capsule docusate sodium (C OLACE) capsule 100 mg docusate sodium (COLACE) capsule 100 mg 09/12/2020 03:15:43 AM EST 100 mg Oral active 100 mg, Oral, Daily PRN, Constipation, Starting 09/12/20 at 0315, For 30 days [facility] Medication administered onsite Oxycodone Hydrochloride 5 MG Oral Tablet oxyCODONE (ROXICODONE) immediate release tablet 5 mg oxyCODONE (ROXICODONE) immediate release tablet 5 mg 09/12/2020 03:15:43 AM EST 5 mg Oral aborted 5 mg, Oral, Every 6 hours PRN, Severe Pain (Pain Scale Score 7-10), severe pain, Starting 09/12/20 at 0315, For 1 day
Oxycodone immediate release is limited to 10 mg per dose. Higher doses ( only) require Pain Service consultation and approval.
[facility] [facility] Medication administered onsite albuterol (PROVENTIL HFA) inhaler 2 puff [id number] 09/12/2020 03:15:43 AM EST 2 {puff} Inhalation active 2 pu ff, Inhalation, Every 6 hours PRN, Wheezing, Starting 09/12/20 at 0315, For 4 days
Shake the inhaler well before each spray.
[facility] Medication administered onsite Baclofen 10 MG Oral Tablet baclofen (LIORESAL) tablet 10 mg baclofen (LIORESAL) tablet 10 mg 09/12/2020 03:15:43 AM EST 10 mg Oral activ e 10 mg, Oral, Three Times Daily-PRN, Muscle spasms, Starting 09/12/20 at 0315, For 30 days [facility] Medication administered onsite sodium chloride 0.9 % bolus 500 mL [id number] 09/12/2020 02:00:00 AM EST 500 mL Intravenous completed 500 mL, Intravenous, Once, 09/12/20 at 0200, For 1 dose [facility] Medication administered onsite 3 ML insulin detemir 100 UNT/ML Pen Inje ctor insulin detemir (LEVEMIR) 100 unit/mL (3 mL) injection insulin detemir (LEVEMIR) 100 unit/mL (3 mL) injection 09/08/2020 12:00:00 AM EST 20 U subcutaneous active Inject 20 Units under the skin 1 (one) time each day. [facility] vancomycin (VANCOCIN) 1 gram/200 mL IVPB [id number] 09/08/2020 12:00:00 AM EST 1 g intravenous active lower respiratory in fection Infuse 200 mL (1 g total) into a venous catheter every 12 (twelve) hours for 7 days. [facility] lower respiratory infection Dexamethasone 6 MG Oral Tablet dexAMETHasone (DECADRON ) 6 mg tablet dexAMETHasone (DECADRON) 6 mg tablet 09/08/2020 12:00:00 AM EST 6 mg oral active Take 1 tablet (6 mg total) by mouth 1 (one) time each day for 2 doses. [facility] 60 ACTUAT formoterol fumarate 0.005 MG/A CTUAT / mometasone furoate 0.2 MG/ACTUAT Metered Dose Inhaler mometasone-formoterol (DULERA) 200-5 mcg/actuation inhaler mometasone-formoterol (DULERA) 200-5 mcg/actuation inhaler 09/07/2020 12:00:00 AM EST 2 {puff} inhalation active Inha le 2 puffs 2 (two) times a day. Rinse mouth with water after use to reduce aftertaste and incidence of candidiasis. Do not swallow. [facility] 3 ML Insulin, Aspart, Human 100 UNT/ML P en Injector insulin aspart (NovoLOG) 100 unit/mL (3 mL) injection insulin aspart (NovoLOG) 100 unit/mL (3 mL) injection 09/07/2020 12:00:00 AM EST U subcutaneous active Inject 0-10 Units under the skin 4 (four) times a day (before meals and nightly). [facility] Acetaminophen 325 MG Oral Tablet acetaminophen (TYLENO L) 325 mg tablet acetaminophen (TYLENOL) 325 mg tablet 09/07/2020 12:00:00 AM EST 65 0 mg oral active Take 2 tablets (650 mg total) by mouth every 6 (six) hours if needed for mild pain for up to 10 days. [facility] 24 HR metoprolol succinate 50 MG Extende d Release Oral Tablet metoprolol succinate (TOPROL-XL) 50 mg 24 hr tablet metoprolol succinate (TOPROL-XL) 50 mg 24 hr tablet 09/07/2020 12:00:00 AM EST 50 mg oral activ e Take 1 tablet (50 mg total) by mouth 1 (one) time each day. Do not crush or chew. Hold for SBP < 100 or HR < 60 [facility] albuterol HFA (VENTOLIN HFA) 90 mcg/actuation inhaler [id number] [id number] 09/07/2020 12:00:00 AM EST 2 {puff} inhalation active Inhale 2 puffs 3 (three) times a day. [facility] 200 ACTUAT Ipratropium [place] 0.017 MG/ ACTUAT Metered Dose Inhaler ipratropium bromide (ATROVENT HFA) 17 mcg/actuation inhaler ipratropium bromide (ATROVENT HFA) 17 mcg/actuation inhaler 09/07/2020 12:00:00 AM EST 2 {puff} inhalation active Inhale 2 puffs 3 (three) times a day. [facility] Famotidine 20 MG Oral Tablet famotidine (PEPCID) 20 mg tablet famotidine (PEPCID) 20 mg tablet 09/07/2020 12:00:00 AM EST 20 mg oral active Take 1 tablet (20 mg total) by mouth 2 (two) times a day. [facility] 150 ML Levofloxacin 5 MG/ML Injection le voFLOXacin (LEVAQUIN) 750 mg/150 mL IVPB levoFLOXacin (LEVAQUIN) 750 mg/150 mL IVPB 08/31/2020 12:00:[address] 750 mg intravenous aborted Infuse 750 mg into a venous catheter 1 (one) time each day. [facility] 500 mg 04/07/2020 12:00:00 AM EDT capsule 3 TAKE ONE CAPSULE BY MOUTH EVERY 6 HOURS TAKE ONE CAPSULE BY MOUTH EVERY 6 HOURS SOLD: 04/07/2020 [facility] Amiodarone hydrochloride 200 MG Oral Tab let Amiodarone HCl 200 MG Oral Tablet (PACERONE) Amiodarone HCl 200 MG Oral Tablet (PACERONE) 0 12:00:00 AM EDT 200 mg Oral active Take 1 t ablet by mouth Two Times Daily Please take 400mg in PM on 01/21/2020, then take 200mg by mouth twice daily [facility] atorvastatin 80 MG Oral Tablet Atorvastatin Calcium 80 MG Oral Tablet (LIPITOR) Atorvastatin Calcium 80 MG Oral Tablet (LIPITOR) 01/21/2020 12:00:00 AM EDT 80 mg Oral active Take 1 tablet by mouth d [facility] 24 HR metoprolol succinate 50 MG Extende d Release Oral Tablet Metoprolol Succinate ER 50 MG Oral Tablet Extended Release 24 Hour (TOPROL-XL) Metoprolol Succinate ER 50 MG Oral Tablet Extended Release 24 Hour (TOPROL-XL) 01/21/2020 12:00:00 AM EDT 50 mg Oral active Take 1 t ablet by mouth daily [facility] albuterol (PROVENTIL HFA;VENTOLIN HFA) 108 (90 Base) M CG/ACT inhaler [id number] 03/07/2019 12:00:00 AM EDT 2 {puff} Inhalation active Inhale 2 puffs into the lungs every 6 (six) hours as needed for Wheezing [facility] 60 ACTUAT salmeterol 0.05 MG/ACTUAT Dry Powder Inhaler salmeterol (SEREVENT DISKUS) 50 MCG/DOSE diskus inhaler salmeterol (SEREVENT DISKUS) 50 MCG/DOSE diskus inhaler 03/07/2019 12:00:00 AM EDT 1 {puff} Inhalation active Inhale 1 puff into the lungs Two Times Daily [facility] Lisinopril 20 MG Oral Tablet lisinopril (PRINIVIL,ZEST RIL) 20 MG tablet lisinopril (PRINIVIL,ZESTRIL) 20 MG tablet 03/07/2019 12:00:00 AM EDT 20 mg Oral active Take 1 tablet by man th daily [facility] Amlodipine 10 MG Oral Tablet amlodipine (NORVASC) 10 M G tablet amlodipine (NORVASC) 10 MG tablet 03/07/2019 12:00:00 AM EDT 10 mg Oral active Take 1 tablet by mouth daily [facility] Metoprolol Tartrate 25 MG Oral Tablet metoprolol (LOPR ESSOR) 25 MG tablet metoprolol (LOPRESSOR) 25 MG tablet 25 mg Oral ab orted Take 25 mg by mouth 2 (two) times daily. [facility] Guaifenesin 20 MG/ML Oral Solution guaiFENesin (ROBITU SSIN) 100 mg/5 mL syrup guaiFENesin (ROBITUSSIN) 100 mg/5 mL syrup 200 mg oral aborted Take 200 mg by mouth every 4 (four) hours if needed for cough. [facility] 24 HR metoprolol succinate 50 MG Extende d Release Oral Tablet metoprolol succinate (TOPROL-XL) 50 mg 24 hr tablet metoprolol succinate (TOPROL-XL) 50 mg 24 hr tablet 50 mg oral aborted Shabbir e 50 mg by mouth 1 (one) time each day. Do not crush or chew. [facility] 120 ACTUAT Albuterol 0.1 MG/ACTUAT / Ipr atropium [place] 0.02 MG/ACTUAT Metered Dose Inhaler ipratropium-albuteroL (COMBIVENT RESPIMAT) 20-100 mcg/actuation inhaler ipratropium-albuteroL (COMBIVENT RESPIMAT) 20-100 mcg/ actuation inhaler 1 {puff} inhalation aborted Inhale 1 p uff 4 (four) times a day. [facility] Ceftazidime 1000 MG Injection cefTAZidime (FORTAZ) 1 g shola/50 mL piggyback IVPB cefTAZidime (FORTAZ) 1 gram/50 mL piggyback IVPB 1 g i ntravenous aborted Infuse 1 g into a venous cathete r every 8 (eight) hours. [facility] Amlodipine 10 MG Oral Tablet amLODIPine (NORVASC) 10 m g tablet amLODIPine (NORVASC) 10 mg tablet oral aborted Take by mouth 1 (one) time each day. [facility] Levofloxacin 750 MG Oral Tablet levoFLOXacin (LEVAQUIN ) 750 mg tablet levoFLOXacin (LEVAQUIN) 750 mg tablet oral aborte d Take by mouth. [facility] CHOLECALCIFEROL, VITAMIN D3, ORAL 1000 U oral aborted Take 1,000 Units by mouth 1 (one) time each day. [facility] vancomycin/0.9 % sod chloride (vancomyci n in 0.9 % sodium chl) 1.25 gram/250 mL solution [id number] 1250 mg intravenous aborted Infuse 1,250 mg into a venous catheter every 8 (eight) hours. [facility] Insurance Providers Payer name Policy type / Coverage type Policy ID Covered alliance party ID Covered alliance party's relationship to moss Policy Moss Plan Information MEDICARE A [id number] Self [id number] MEDICARE [id number] SP [id number] A MEDICARE A [id number] Self [id number] MEDICARE Medicare [id number] MEDICARE Med [id number] Self [id number] MEDICAID [id number] SP [id number] [facility] HORIZONS [id number] SP [id number] [facility] MEDICARE COMPLETE G [id number] Self [id number] MEDICAID M [id number] Self [id number] MEDICARE COMPLETE [id number] SP [id number] [facility] MEDICARE [id number] Celine [id number] [facility] MEDICARE [id number] Celine [id number] EXCELLUS C [id number] Self [id number] [place] [id number] [place] [id number] Self [id number] MEDICAID M [id number] Self [id number] [place] [id number] Self [id number] [place] [id number] MEDICARE C [id number] S [id number] EXCELLUS BCBS B [id number] S [id number] BLUE CROSS BLUE SHIELD -PHYSICIAN [id number] MEDICARE C [id number] S [id number] BLUE [place]OSS BLUE [place] [place] [id number] 18 [id number] [place] PPO 302/307 [id number] SP [id number] MEDICARE PART A -O/P [id number] 18 [id number] ANSI-Medicare Part B [id number] ANSI-Commercial [id number] ANSI-Medicare Part B [id number] ANSI-Medicare Part B [id number]-95th-[id number] ANSI-Medicare Part B [id number]-95z6-stks-[id number] ANSI-Commercial [id number]-d8t8-[id number]-66hs-[id number]-[id number] ANSI-Medicare Part B [id number]-[id number] ANSI-Medicare Part B [id number] [id number]-[id number] ANSI-Commercial bbpr5yr7-j04o-2583-cd0j-[id number] azjl6zx3-h61u-3435-pc5v-15487dgrj04t ANSI-Medicare Part B [id number] 237dl2ti-96g6-9t79-797f-[id number] ANSI-Medicare Part B [id number]-xonb-[id number] q186eoo6-40p5-1hgm-wmop-j2dg390c6qn0 ANSI-Commercial [id number]-r8sc-[id number] u6871j4f-p5ok-[id number] ANSI-Medicare Part B [id number]-950c-83wv05jnk57r v3c27m7m-9198-225q-123g-84tu97tkp20v ANSI-Commercial c4i8pzzb-170f-0luv-a0pb-229mn80qj381 a6x9duuz-032w-1ejo-m8wg-116fq67wb291 ANSI-Medicare Part B [id number] 83v187ld-w7fi-2395-c03l-zu5p8zh8z54f ANSI-Medicare Part B [id number]-[id number] j45rn07h-5b93-4q91-e181-5l59taf5x3x0 ANSI-Medicare Part B [id number] 42t0a28t-60e3-0u48-1119-9e726y0494yy ANSI-Commercial 2u3wj321-36e1-57r4-25i9-10q0069p0k79 6b0qt848-31u2-69n3-06t6-95x9426w3p92 ANSI-Commercial 1991a994-18f2-0a7b-m50a-6m7x6541bt49 3060f041-11k7-8i6k-r38h-3x1d2919pu35 ANSI-Medicare Part B [id number]-4jh9-4bk3-[id number] 83134q9a-dymk-4rr5-0ts2-yf2d12s10413 ANSI-Medicare Part B [id number]-03rk-274n-8772-2g28py3k6yqz cs1u14xv-48xb-320m-0798-6e53wl1c1two ANSI-Medicare Part B [id number]-3036-8e5m-b7f1-496w9j8071r6 s9b66d7l-2794-0m1p-l7g3-069d4a1889c9 ANSI-Medicare Part B [id number]-9gjs-c7s8-86t40213179t o65a75ll-34bv-5crd-s8l7-50t37015111k ANSI-Commercial 1l0bh871-5gf5-71n9-78z2-63757v8w4h70 1v7di259-0cf3-20a5-98e1-80721q2c9v25 ANSI-Commercial g4778u21-1002-6934-x695-132m490z08u6 h6448u57-7676-7254-o982-162t770k01i5 ANSI-Medicare Part B [id number]-y434-132b-zr45-h9vjaq3n57kg d618600e-i723-153i-ts83-w0pfft5e60zd ANSI-Medicare Part B 40r5phen-nye7-724u-be66-uge54k165e22 92o8htqt-ifv4-355a-ka28-zvo26f271h35 ANSI-Medicare Part B [id number]-9u6u-75am-t9w4-640294580ql3 4576o61v-6d2l-48gw-b3s4-958399383lu7 ANSI-Medicare Part B 5834mg42-244m-5h4l-15el-547o130g23k1 0678jz39-399o-5l4j-19wb-721x954n66j6 ANSI-Commercial b2n78s5x-j79x-531q-rh22-x4f80nt2r4b6 c3f52s3w-l15e-941j-ud16-z9u52hz4f7n2 ANSI-Medicare Part B 85i8w3u9-4856-327i-5y6a-71c491wo60z6 13w2a8o4-9351-290z-2w3f-31v863bn39t3 ANSI-Commercial 5t2g329p-y973-8038-8qw7-o3g05964qm11 6g7q295m-g577-2128-0wi1-v3h09409hy69 ANSI-Medicare Part B 321y232z-2wv4-57tk-m51w-202x7342ev8a 099h940y-0fr3-37ud-z13g-404b3840ox1a [place]BS [place] PPO 302/307 [id number] SP [id number] ANSI-Medicare Part B [id number]-821f-w0jy-r9q8ync3ygk7 2r479841-5h5i-237r-w7ru-d6a2swj2obs1 ANSI-Medicare Part B hwp8w540-98ff-5mhv-3200-a9e2tmjp233w akr5m497-89hl-8npw-0392-r2t1jkti689b ANSI-Commercial 7h742914-1255-6539-p727-f9888235j685 3u669323-9941-4092-o343-k7180103u148 ANSI-Medicare Part B 5u33yw43-3518-500j-v6rq-86925s47go99 3f16ap19-9266-391r-e8yp-34403x54wm87 ANSI-Medicare Part B [id number]-04y0-y78108w7k789 l1ss1017-4809-055b-62c8-a18596d9e656 ANSI-Commercial t940jn3e-5299-662p-s01v-z5k8p9963292 v026lz8f-0038-059u-g34d-v3h6o0962455 ANSI-Commercial 5g8ep70o-d16s-88o0-17n6-36q653797962 2n7wb29g-x66l-00v1-61b2-97l344144503 ANSI-Medicare Part B [id number]-yt78-85j6-h975-8d9647tc45l3 h912296l-wh40-30f0-s048-0j2879xw05f9 ANSI-Medicare Part B [id number]39g03941637 3aa01816-46p3-5222-6no0-170w13581679 ANSI-Medicare Part B aax552n0-x640-8743-c286-0p1hq720d45a opt363v0-l917-3130-b260-0f1oo591u63n ANSI-Commercial 931d0d84-p8gz-8154-9ag6-0zt61e08tqw6 491z9b06-c6be-3676-7gj8-9sx22b01gkf3 ANSI-Medicare Part B r5o52yh9-2j37-2362-6ee0-13r8c70o127m v1k07oj7-1j34-5006-6hm4-97d4o10v135h ANSI-Commercial tx970113-2mj7-8l2y-bo2o-73zm40712757 gt978802-7am9-5o4f-qt9g-69ta79570564 ANSI-Medicare Part B 350n0069-2qcm-5b16-0718-012z1qk468bn 785l6096-7urb-0k43-9135-061b2qh366uh ANSI-Medicare Part B q1s0r748-buj4-8pa1-l59e-278z9v5rx37w o2r1p680-nzx6-0nk9-i80e-469b2k2hj33i [facility] MEDICARE O/P [id number] 18 [id number] ANSI-Medicare Part B [id number]-8841-1r33-m720-2h69q703d916 3vb0390f-9732-8s88-b189-7m30b124r980 ANSI-Commercial v73ynu61-998v-1u45-w2c5-67p4957n2569 i01vay15-721f-1y11-w2s0-72t7924k8668 ANSI-Medicare Part B [id number]-4398-sw583k885410 6by06546-9h70-949b-2219-wv183j866642 ANSI-Commercial 7rgcoy38-z466-848t-0943-81ct07f6b3w3 0hqntt95-c420-145q-5364-26dp15k6q4a9 ANSI-Medicare Part B i8cm8v7i-515v-847j-yzjh-07s398j24c7r o4wx8s4w-116x-896b-lfoa-72k249b77i4u ANSI-Medicare Part B k7v65jdm-092v-90j5-f902-0u18p2l9o0f8 j5g47xmc-006p-16w1-o897-0r72h2k1w4w4 ANSI-Medicare Part B [id number]-9jm2-t869-k9yu5ald9h8j v5433596-17vn-3ye2-f428-d8lk1fwf9f2q ANSI-Commercial f837p412-7t42-6u86-w4rw-772942n20m3i e988p304-1o64-8g98-t4bc-655609x05k6q ANSI-Medicare Part B [id number]-rdi4-0rb1-s9i4-223184h01l64 6089660z-hyb5-9yu8-d5w6-448941t85o87 ANSI-Medicare Part B 60370w7s-262f-07c6-ei41-7738b950eo69 72744h7y-315j-11d4-zq68-5249g951fu74 ANSI-Medicare Part B l3eq9223-27d0-408m-np51-58261sp3em57 r1xm4654-73t2-823w-rs89-58934tg5gg86 ANSI-Commercial 95285b3q-4c3u-236v-i731-16081ja4hp17 87576r0z-0v2l-322c-m438-93012ox3nl68 ANSI-Commercial 0256ry7o-ea12-3654-za60-8u216fw7hiyi 6141fx0s-tl75-5586-wm96-4w319se9ieuz ANSI-Medicare Part B luyyj8n3-voda-2254-z501-61596wb8u7gw ikgsp1l5-hahs-5819-d078-08789ck8l7pw ANSI-Medicare Part B [id number]-p7mx-9cfn-969r-vi699y38r99o 88112759-h3iz-6brd-665w-wo309t71h39t ANSI-Commercial 2wv8za8j-372l-8ah3-606k-p76i572yo56o 7bs1vs0g-867c-9bo8-677c-l32w070es11m ANSI-Medicare Part B [id number]-ms2h-129m-v49r-u84828548o01 n330iy94-ll9r-533k-l72n-q61727460p57 ANSI-Medicare Part B v27on5v5-x7n5-22j4-ftz5-g8491q8xi876 f16ji1q7-j1i5-98m1-bhx0-j4727l5is227 ANSI-Commercial 52ji3384-9693-4798-5028-1i7316539i5e 89pb0575-1810-0571-4321-2q8584941f2i ANSI-Medicare Part B iyf0q140-674n-8346-j3s0-9e1v16y5p412 vhl4h909-307o-0625-z0d4-2x5c49o5q143 ANSI-Medicare Part B 32p3g00c-64m2-143v-9x39-5h80fl1o45cc 87z9j48q-73p8-815h-2v97-7i02tz9l33yi ANSI-Medicare Part B 12x9c571-1691-3ca7-750n-j275vl4s1jrx 24w7q053-0985-5ob0-075c-a825db0f0uwx ANSI-Commercial 1ke90b06-878n-2516-j53j-st7688198631 7dp91z12-569y-1144-k22b-cw1107305259 ANSI-Medicare Part B 46vy34vj-14l9-6e61-n999-7c3nsh58n180 00kp92ho-83a3-5b23-g542-9d2kds15k910 ANSI-Medicare Part B 07346z79-371i-11r3-ug71-22k8247l22v7 99301s28-544q-25m4-wp14-41g4160m60c3 ANSI-Medicare Part B eu1e7y42-l34r-4821-s753-276534355635 uw3w4j63-x05z-8887-q020-731421175117 ANSI-Commercial r21l2n05-51te-4203-iyc3-9j724855m0x3 x59d7s27-13ot-4931-ald4-2i589148j4b2 ANSI-Commercial jk0fzt44-2j4x-6j80-l64f-7017r019z568 ac9tsg47-9u1y-9i35-c37o-3785k478u260 ANSI-Medicare Part B 0964sc5d-c9ib-82o3-j9e3-378q1652g8oc 9815rs1w-v5ku-78p5-n4e0-828r5711z4th ANSI-Medicare Part B 37rt5dh1-2472-1x4t-x2rl-6t53w7zq3575 12cf5vt5-6176-8g3u-u9xj-0x73p8dl9039 ANSI-Medicare Part B wzm51wh5-23g1-1jek-0h6p-12qzd6bm3oa4 kwm81tr1-30j2-9fid-9z8d-12qqi9sh9eb8 ANSI-Commercial s9gen4co-1lh8-3t01-406i-b41530680557 s9mvp3qj-3mv0-3q73-314s-l42981330704 ANSI-Medicare Part B ak545e1z-3311-12bh-v994-83zj8d960k14 cb302d0f-8045-24oa-t956-39hc1q179q01 ANSI-Medicare Part B 187n42w2-494d-553b-155h-brxvq2t8dl49 419h34y6-750k-772h-541d-guync8p6wb87 ANSI-Commercial 190h22cy-2783-652a-q915-31t3c8p5q67h 168z64lb-5593-508v-v185-39t4w1g7l80s ANSI-Medicare Part B 51316w19-4n48-1x00-o374-fd6g89226o63 92452u15-2q07-2o10-c190-dl1m57794z36 ANSI-Medicare Part B [id number]-2bu0-d9m4-918n7k6w6s6y 49074536-8l6z-8ni3-f1e5-231b3h4d5k7v ANSI-Medicare Part B lbd57z60-u328-47k0-647y-suy5g9py9621 eia77j70-l859-48h7-125l-cgs4e8ci2465 ANSI-Medicare Part B [id number]-h67vc56a382h c2420219-6013-01q3-28q0-m97bz34g897b ANSI-Medicare Part B 54380o51-xa39-651n-8w0o-0co7307532i4 88505l55-dd54-476u-5r0l-7ba5455827g6 ANSI-Medicare Part B [id number]-138b-[id number] 39025173-868q-897e-na22-12e56011589x ANSI-Medicare Part B 72hq5e4l-83n5-4e76-w3jo-17w22656xr3x 17qh6y2i-18s4-4f63-u7pv-90s87137nk7v ANSI-Medicare Part B 20128vi9-73fc-0967-0f31-x16d7d634nvs 07466og8-45qi-2371-8v02-e96s7g802bwj MEDICARE COMPLETE [id number] SP [id number] ANSI-Medicare Part B 4693zzp1-i8f2-10i9-05w2-621yn321f034 0237kcq6-p8a6-64t7-40z8-089md719b239 ANSI-Medicare Part B [id number]-8987-b1us-m3qq7r880k0g o0m5o523-049y-7948-f3kp-h4ck1c510g0o ANSI-Medicare Part B 4s3x7as5-vn04-34l2-t7et-080sr144k5tk 1v1e2ea6-yw80-23i2-z3os-525zy622k3jn ANSI-Medicare Part B 24396q57-481m-9d75-y1if-[id number] 18274v64-396v-4x51-k0ol-42082151n948 ANSI-Medicare Part B gg4f727h-06rk-13x1-e39i-8460114v1u61 gw1o261r-82hx-72c4-j22d-6080711j3g63 ANSI-Medicare Part B 8b023p53-3yko-7gc1-g8z6-6119sc28y8m7 7u307c47-4tvb-4ok8-t7x3-1435zy16m6h1 ANSI-Medicare Part B [id number]-6h48-wx2r-r01t2b4d7szd 1ac04325-684z-1q04-ha0z-c90n5z6r5jfu MEDICAID-O/P [id number] 18 [id number] R ANSI-Medicare Part B aoav8590-90j3-4v43-4gq6-8lw3g8628779 [id number] ANSI-Medicare Part B [id number]-so19-1528-sw53-92494vea0655 615564l7-of45-9459-br37-50090asb1176 ANSI-Medicare Part B [id number]-3578-i94r-6337563u4sqn c9208548-0p1b-2333-y49p-8114664d7mhf ANSI-Medicare Part B [id number]99776e7m02g 70718r07-80l8-2aw1-4v34-889827i0y08d ANSI-Medicare Part B o119t41e-g21j-26od-j135-151cj30ka0t2 q348k42z-h87y-41hc-o144-503ks29tg5s3 ANSI-Medicare Part B 60o919h4-et60-76y6-3zfe-b2241jq0a03q 92s897c2-qa12-06u6-2wpt-v5396lt6y37m ANSI-Medicare Part B [id number]-3r63-88y1-x2m2-f2t376am1654 8of9737f-8j85-57o1-t4n9-n7c927ld4250 ANSI-Medicare Part B [id number]-jj9e-643q-b802-4pem57u7w23h 795p5768-io9l-276t-h368-2dag51o8c46y ANSI-Medicare Part B 6j51f192-mz78-0wdt-fj15-vf162084fyuq 0b56q668-el80-6vqu-uy67-dl312526nzxc ANSI-Medicare Part B 692b53cu-0ka4-2z6c-6p68-555e413w33wz 704e80of-7mx7-2c7g-9y20-422i276h54kr MEDICARE COMPLETE [id number] SP [id number] MEDICARE [id number] SP [id number] A MEDICARE COMPLETE-UHC O [id number] S [id number] [employer] MEDICARE [id number] 18 [id number] [employer] MEDICARE I/P [id number] 18 [id number] MEDICAID - O/P EMERGENCY ROOM [id number] 18 [id number] MEDICARE COMPLETE [id number] SP [id number] MEDICARE COMPLETE [id number] SP [id number] MEDICARE COMPLETE [id number] SP [id number] [facility] Medicare Commercial [id number] Self [id number] MEDICARE COMPLETE [id number] SP [id number] MEDICARE COMPLETE-UHC O [id number] S [id number] [employer] MEDICARE-O/P [id number] 18 [id number] [employer] MEDICARE -CLINIC [id number] 18 [id number] MEDICAID W [id number] S [id number] [facility] MEDICARE COMPLET O [id number] S [id number] MEDICARE JOEL O [id number] S [id number] MEDICAID-O/P [id number] 18 [id number] R [facility] [id number] SP [id number] [facility] MCARE COMPLETE O [id number] S [id number] MEDICAID W [id number] S [id number] MEDICAID-O/P [id number] 18 [id number] MEDICAID-I/P [id number] 18 [id number] R [id number] O [place] MED[place] [id number] SP [id number] R [id number] A [employer] [place] PPO [id number] SP [id number] MEDICARE [id number] SP [id number] MEDICAID [facility] [id number] [place] [place] BS [id number] 18 [id number] MEDICARE PART A [facility] [id number] 18 [id number] [employer] [place] -O [id number] MEDICARE PART A -O [id number] 18 [id number] MEDICARE PART A -O/P [id number] 18 [id number] [employer] [place] -O/P [id number] 18 [id number] [employer] BL[employer] -I/P [id number] 18 [id number] MEDICARE PART A -I/P [id number] 18 [id number] [facility] [id number] S [id number] BLUE CROSS [id number] S [id number] MEDICARE [id number] S [id number] MEDICARE [id number] SP [id number] [employer] BC-BS PPO 306 [id number] SP [id number] [place] [id number] SP [id number] [facility] C [id number] S [id number] Problems, Conditions, and Diagnoses Code Display Name Description Problem Type Effective Dates Data Source(s) Z50611 Other assisted (current) drug therapy O ther assisted (current) drug therapy Diagnosis 03/11/2021 02:41:00 PM EDT [facility] G8929 Other chronic pain Other chronic pain Diagnosis 02:41:00 PM EDT [facility] E785 Hyperlipidemia, unspecified Hyperlipidemia, unspecifie d Diagnosis 03/11/2021 02:41:00 PM EDT [facility] N189 Chronic kidney disease, unspecified Chronic kidn ey disease, unspecified Diagnosis 03/11/2021 02:41:00 PM EDT [facility] I129 Hypertensive chronic kidney disease with stage 1 through stage 4 chronic kidney disease, or unspecified chronic kidney disease Hypertensive chronic kidney disease with stage 1 through stage 4 chronic kidney disease, or unspecified chronic kidney disease Diagnosis 03/11/2021 02:41:00 PM ED T [facility] E119 Type 2 diabetes mellitus without complic ations Type 2 diabetes mellitus without complications Diagnosis 03/11/2021 02:41:00 PM EDT [facility] [id number] Non-pressure chronic ulcer o f other part of left lower leg with unspecified severity Non-pressure chronic ulcer of other part of left lower leg with unspecified severity Diagnosis 03/11/2021 02:41:00 PM EDT [facility] J449 Chronic obstructive pulmonary disease, u nspecified Chronic obstructive pulmonary disease, unspecified Diagnosis 10/08/2020 07:19:00 AM EDT [facility] I38 Endocarditis, valve unspecified Endocarditis, valve un specified Diagnosis 09/29/2020 06:58:00 AM EDT [facility] Z8616 PERSONAL HISTORY OF COVID-19 PERSONAL HISTORY OF COVID -19 Diagnosis 09/23/2020 09:22:00 AM [facility] I509 Heart failure, unspecified Heart failure, unspecified Diagnosis 09/23/2020 09:22:00 AM [facility] I110 Hypertensive heart disease with heart fa ilure Hypertensive heart disease with heart failure Diagnosis 09/23/2020 09:22:00 AM [facility] 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 Diagnosis 09/23/2020 09:22:00 AM [facility] I4891 Unspecified atrial fibrillation Unspecified atrial fib rillation Diagnosis 09/23/2020 09:22:00 AM [facility] E8342 Hypomagnesemia Hypomagnesemia Diagnosis 09/23/2020 09:22: 00 AM [facility] [id number] Type 2 diabetes mellitus with foot ulcer Type 2 diabetes mellitus with foot ulcer Diagnosis 09/23/2020 09:22:00 AM [facility] Z66 Do not resuscitate Do not resuscitate Diagnosis 09:22:00 AM [facility] J9622 Acute and chronic respiratory failure wi th hypercapnia Acute and chronic respiratory failure with hypercapnia Diagnosis 09/23/2020 09:22:00 AM [facility] G9341 Metabolic encephalopathy Metabolic encephalopathy Diag nosis 09/23/2020 09:22:00 AM [facility] R0902 Hypoxemia Hypoxemia Diagnosis 09/22/2020 02:52:00 PM [facility] E860 Dehydration Dehydration Diagnosis 09/22/2020 02:52:00 PM [facility] R4182 Altered mental status, unspecified Altered menta l status, unspecified Diagnosis 09/22/2020 02:52:00 PM [facility] M8610 Other acute osteomyelitis, unspecified s ite Other acute osteomyelitis, unspecified site Diagnosis 09/22/2020 07:13:00 AM [facility] I639 Cerebral infarction, unspecified Cerebral infarc tion, unspecified Diagnosis 09/21/2020 08:40:00 PM [facility] R531 Weakness Weakness Diagnosis 09/17/2020 07:34:00 AM [facility] L03.116 Cellulitis of left lower limb Cellulitis of left lower limb Diagnosis 09/12/2020 02:40:24 AM [facility] K59.00 Constipation, unspecified Constipation, unspecified Di agnosis 09/11/2020 09:29:00 PM [facility] U07.1 COVID-19 COVID-19 Diagnosis 09/11/2020 09:29:00 PM [facility] R foot with no pulse, cyanotic, with isidro e pain R foot with no pulse, cyanotic, with some pain Diagnosis 09/11/2020 09:29:00 PM [facility] R leg with no pulse, cyanotic, with some pain R leg with no pulse, cyanotic, with some pain Diagnosis 09/11/2020 04:02:55 PM [facility] I73.9 Peripheral vascular disease, unspecified Peripheral vascular disease, unspecified Diagnosis 09/11/2020 11:52:00 AM [facility] Unpalpable R pedal pulse Unpalpable R pedal pulse Diag nosis 09/11/2020 11:52:00 AM [facility] ems other ems other Diagnosis 09/11/2020 11:52:00 AM [facility] J96.90 Respiratory failure, unspeci fied, unspecified whether with hypoxia or hypercapnia Respiratory failure, unspecified, unspec ified whether with hypoxia or hypercapnia Diagnosis 09/01/2020 01:25:00 PM [facility] respiratory failure; pneumonia respiratory failure; pn eumonia Diagnosis 09/01/2020 01:25:00 PM [facility] pneumonia pneumonia Diagnosis 09/01/2020 11:50:00 AM [facility] [id number] 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 limited to breakdown of skin Non-pressure chronic ulcer of other part of unspecified foot limited to breakdown of skin Diagnosis 08/31/2020 12:08:00 PM [facility] I10 Essential (primary) hypertension Essential (primary) h ypertension Diagnosis 08/31/2020 12:08:00 PM [facility] M1610 Unilateral primary osteoarthritis, unspe cified hip Unilateral primary osteoarthritis, unspecified hip Diagnosis 08/31/2020 12:08:00 PM [facility] E1140 Type 2 diabetes mellitus with diabetic n europathy, unspecified Type 2 diabetes mellitus with diabetic neuropathy, unspecified Diagnosis 08/31/2020 12:08:00 PM [facility] D649 Anemia, unspecified Anemia, unspecified Diagnosis 0 08/31/2020 12:08:00 PM [facility] J440 Chronic obstructive pulmonar y disease with (acute) lower respiratory infection Chronic obstructive pulmonary disease wi th (acute) lower respiratory infection Diagnosis 08/31/2020 12:08:00 PM [facility] J441 Chronic obstructive pulmonary disease wi th (acute) exacerbation Chronic obstructive pulmonary disease with (acute) exacerbation Diagnosis 08/31/2020 12:08:00 PM [facility] J9602 Acute respiratory failure with hypercapn ia Acute respiratory failure with hypercapnia Diagnosis 08/31/2020 12:08:00 PM [facility] J189 Pneumonia, unspecified organism Pneumonia, unspecified organism Diagnosis 08/31/2020 12:08:00 PM [facility] R112 Nausea with vomiting, unspecified Nausea with vo miting, unspecified Diagnosis 08/31/2020 09:33:00 AM [facility] Z118 Encounter for screening for other infect ious and parasitic diseases Encounter for screening for other infectious and parasitic diseases Diagnosis 08/26/2020 08:31:00 AM [facility] M869 Osteomyelitis, unspecified Osteomyelitis, unspecified Diagnosis 08/25/2020 07:00:00 AM [facility] T38.0X5A Adverse effect of glucocorti coids and synthetic analogues, initial encounter ADVERSE EFFECT OF GLUCOCORT/SYNTH ANALOG, INIT Diagnosis 08/11/2020 02:20:00 AM [facility] D72.829 Elevated white blood cell count, unspeci fied ELEVATED WHITE BLOOD CELL COUNT, UNSPECIFIED Diagnosis 08/11/2020 02:20:[address] 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 SNF (CU RRENT) USE OF INSULIN Diagnosis 08/11/2020 02:20:00 AM [facility] J44.9 Chronic obstructive pulmonary disease, u nspecified CHRONIC OBSTRUCTIVE PULMONARY DISEASE, UNSPECIFIED Diagnosis 08/11/2020 02:20:00 AM [facility] K21.9 Gastro-esophageal reflux disease without esophagitis GASTRO-ESOPHAGEAL REFLUX DISEASE WITHOUT ESOPHAGIT Diagnosis 08/11/2020 02:20:00 AM [facility] H40.9 Unspecified glaucoma UNSPECIFIED GLAUCOMA Diagnosis 08/11/2020 02:20:00 AM [facility] R53.81 Other malaise OTHER MALAISE Diagnosis 08/11/2020 02:20:00 AM [facility] E55.9 Vitamin D deficiency, unspecified VITAMIN D DEFI CIENCY, UNSPECIFIED Diagnosis 08/11/2020 02:20:00 AM [facility] G89.29 Other chronic pain OTHER CHRONIC PAIN Diagnosis 02:20:00 AM [facility] 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 as the cause of diseases classified elsewhere METHICILLIN RESIS STAPH INFCT CAUSING DI SEASES CLA Diagnosis 08/11/2020 02:20:00 AM [facility] I48.91 Unspecified atrial fibrillation UNSPECIFIED ATRI AL FIBRILLATION Diagnosis 08/11/2020 02:20:00 AM [facility] L03.116 Cellulitis of left lower limb CELLULITIS OF LEFT LOWER LIMB Diagnosis 08/11/2020 02:20:00 AM [facility] J12.82 PNEUMONIA DUE TO CORONAVIRUS DISEASE 201 9 PNEUMONIA DUE TO CORONAVIRUS DISEASE 2019 Diagnosis 08/11/2020 02:20:00 AM [facility] U07.1 COVID-19 COVID-19 Diagnosis 08/11/2020 02:20:00 AM [facility] J96.01 Acute respiratory failure with hypoxia A CUTE RESPIRATORY FAILURE WITH HYPOXIA Diagnosis 08/11/2020 02:20:00 AM [facility] J82173 Personal history of nicotine dependence Personal history of nicotine dependence Diagnosis 08/10/2020 06:53:00 PM [facility] Z7901 nursing home (current) use of anticoagulant s exterminator (current) use of anticoagulants Diagnosis 08/10/2020 06:53:00 PM [facility] J1282 PNEUMONIA DUE TO CORONAVIRUS DISEASE 201 9 PNEUMONIA DUE TO CORONAVIRUS DISEASE 2019 Diagnosis 08/10/2020 06:53:00 PM [facility] J9601 Acute respiratory failure with hypoxia A cute respiratory failure with hypoxia Diagnosis 08/10/2020 06:53:00 PM [facility] U071 COVID-19 COVID-19 Diagnosis 08/10/2020 06:53:00 PM [facility] R0600 Dyspnea, unspecified Dyspnea, unspecified Diagnosis 08/10/2020 06:53:00 PM [facility] Z1152 Invalid ICD10 Description Invalid ICD10 Description Di agnosis 07/27/2020 05:08:00 PM [facility] Z1159 Encounter for screening for other viral diseases Encounter for screening for other viral diseases Diagnosis 07/20/2020 07:42:00 PM [facility] E875 Hyperkalemia Hyperkalemia Diagnosis 07/07/2020 03:23:00 P M [facility] A58597 Pressure ulcer of sacral region, stage 1 Pressure ulcer of sacral region, stage 1 Diagnosis 07/07/2020 03:23:00 PM [facility] B9729 Other coronavirus as the cause of diseas es classified elsewhere Other coronavirus as the cause of diseases classified elsewhere Diagnosis 07/07/2020 03:23:00 PM [facility] [id number] Non-pressure chronic ulcer o f other part of unspecified lower leg limited to breakdown of skin Non-pressure chronic ulcer of other part of unspecified lower leg limited to breakdown of skin Diagnosis 07/07/2020 03:23:00 P M [facility] E871 Hypo-osmolality and hyponatremia Hypo-osmolality and hyponatremia Diagnosis 07/07/2020 03:23:00 PM [facility] N179 Acute kidney failure, unspecified Acute kidney f ailure, unspecified Diagnosis 07/07/2020 03:23:00 PM [facility] A419 Sepsis, unspecified organism Sepsis, unspecified organ ism Diagnosis 07/07/2020 03:23:00 PM [facility] J1289 Other viral pneumonia Other viral pneumonia Diagnosis 07/07/2020 03:23:00 PM [facility] J9621 Acute and chronic respiratory failure wi th hypoxia Acute and chronic respiratory failure with hypoxia Diagnosis 07/07/2020 03:23:00 PM [facility] J181 Lobar pneumonia, unspecified organism Lo bar pneumonia, unspecified organism Diagnosis 07/07/2020 11:35:00 AM [facility] I5022 Chronic systolic (congestive) heart fail ure Chronic systolic (congestive) heart failure Diagnosis 07/07/2020 11:35:00 AM [facility] Z7982 exterminator (current) use of aspirin exterminator (cu rrent) use of aspirin Diagnosis 04/01/2020 [facility]:15[facility] Presence of other cardiac implants and g rafts Presence of other cardiac implants and grafts Diagnosis 04/01/2020 11:15:00 AM EDT [facility] N182 Chronic kidney disease, stage 2 (mild) C hronic kidney disease, stage 2 (mild) Diagnosis 04/01/2020 11:15:00 AM EDT [facility] N10 Acute pyelonephritis Acute pyelonephritis Diagnosis 04/01/2020 11:15:00 AM EDT [facility] J9600 Acute respiratory failure, u nspecified whether with hypoxia or hypercapnia Acute respiratory failure, unspecified whether with hy poxia or hypercapnia Diagnosis 04/01/2020 11:15:00 AM EDT [facility] R6520 Severe sepsis without septic shock Severe sepsis without septic shock Diagnosis 04/01/2020 11:15:00 AM EDT [facility] E7800 Pure hypercholesterolemia, unspecified P ure hypercholesterolemia, unspecified Diagnosis 04/01/2020 11:15:00 AM EDT [facility] E039 Hypothyroidism, unspecified Hypothyroidism, unspecifie d Diagnosis 04/01/2020 11:15:00 AM EDT [facility] Q77000 Bandemia Bandemia Diagnosis 04/01/2020 11:15:00 AM ED T [facility] C44.41 [id number] Basal cell carcinoma of neck Problem 06/17/2020 12:00:00 AM EST eCW1 ([facility]) L89.890 [id number] Pressure ulcer of left leg, unstageable P roblem 06/02/2020 12:00:00 AM EST eCW1 ([facility]) Pressure ulcer of other site, stage 2 Pressure u lcer of other site, stage 2 Problem 04/23/2020 12:00:00 AM EDT [facility] ([facility] [id number] 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 Multiple complications due to type 1 diabetes mellitus Problem 04/23/20 20 12:00:00 AM EDT [facility] Type 1 diabetes mellitus with diabetic n europathic arthropathy Type 1 diabetes mellitus with diabetic neuropathic arthropathy Problem 10/08/2 020 12:00:00 AM EDT [facility] Surgeries/Procedures Procedure Description Date Indications Data Source(s) Monitoring of Cardiac Electrical Activity, External Ap proach Monitoring of Cardiac Electrical Activity, External Approach 09/23/2020 12:00:00 AM [facility] POCT GLUCOSE, DOCKED <td>POCT GLUCOSE, DOCKED</td ><td>Routine</td><td>09/14/2020 11:52 AM EST</td><td></td><td> </td> 09/14/2020 11:52:00 AM [facility] VAS LAB US DOPPLER LOWER EXTREMITY BILATERAL VENOUS C OMP 75416 <td>[facility] LAB US DOPPLER LOWER EXTREMITY BILATERAL VENOUS COMP 11687</td><td>Routine</td><td>09/14/2020 9:03 AM EST</td><td></td><td></td> 09/14/2020 09:03:00 AM [facility] POCT GLUCOSE, DOCKED <td>POCT GLUCOSE, DOCKED</td ><td>Routine</td><td>09/14/2020 8:04 AM EST</td><td></td><td> </td> 09/14/2020 08:04:00 AM [facility] DRUG SCREEN QUALITATIVE VANCOMYCIN <td>VANCOMYCIN, TROUGH</td><td>Routine</td><td>09/14/2020 4:19 AM EST</td><td></td><td> </td> 09/14/2020 04:19:00 AM [facility] GLUCOSE QUANTITATIVE BLOOD XCPT REAGENT STRIP <td>POCT GLUCOSE, DOCKED</td><td>Routine</td><td>09/13/2020 9:32 PM EST</td><td></td><td> </td> 09/13/2020 09:32:00 PM [facility] GLUCOSE QUANTITATIVE BLOOD XCPT REAGENT STRIP <td>POCT GLUCOSE, DOCKED</td><td>Routine</td><td>09/13/2020 4:05 PM EST</td><td></td><td> </td> 09/13/2020 04:05:00 PM [facility] GLUCOSE QUANTITATIVE BLOOD XCPT REAGENT STRIP <td>POCT GLUCOSE, DOCKED</td><td>Routine</td><td>09/13/2020 12:06 PM EST</td><td></td><td> </td> 09/13/2020 12:06:00 PM [facility] COVID-19 PCR <td>COVID-19 PCR</td><td>Rou yamilet</td><td>09/13/2020 11:33 AM EST</td><td></td><td> </td> 09/13/2020 11:33:00 AM [facility] COVID-19 IGG AB <td>COVID-19 IGG AB</td><td> Routine</td><td>09/13/2020 11:33 AM EST</td><td></td><td> </td> 09/13/2020 11:33:00 AM [facility] GLUCOSE QUANTITATIVE BLOOD XCPT REAGENT STRIP <td>POCT GLUCOSE, DOCKED</td><td>Routine</td><td>09/13/2020 7:42 AM EST</td><td></td><td> </td> 09/13/2020 07:42:00 AM [facility] BLOOD COUNT COMPLETE AUTO&AUTO DIFRNTL WBC COUNT <td>C BC AND DIFFERENTIAL</td><td>Routine</td><td>09/13/2020 4:18 AM EST</td><td></td><td> </td> 09/13/2020 04:18:00 AM [facility] PHOSPHORUS INORGANIC <td>PHOSPHORUS LEVEL</td><td >Routine</td><td>09/13/2020 4:18 AM EST</td><td></td><td> </td> 09/13/2020 04:18:00 AM [facility] MAGNESIUM <td>MAGNESIUM LEVEL</td><td> Routine</td><td>09/13/2020 4:18 AM EST</td><td></td><td> </td> 09/13/2020 04:18:00 AM [facility] COMPREHENSIVE METABOLIC PANEL <td>COMPREHENSIVE METABO LIC PANEL</td><td>Routine</td><td>09/13/2020 4:18 AM EST</td><td></td><td> </td> 09/13/2020 04:18:00 AM [facility] GLUCOSE QUANTITATIVE BLOOD XCPT REAGENT STRIP <td>POCT GLUCOSE, DOCKED</td><td>Routine</td><td>09/12/2020 9:28 PM EST</td><td></td><td> </td> 09/12/2020 09:28:00 PM [facility] GLUCOSE QUANTITATIVE BLOOD XCPT REAGENT STRIP <td>POCT GLUCOSE, DOCKED</td><td>Routine</td><td>09/12/2020 4:20 PM EST</td><td></td><td> </td> 09/12/2020 04:20:00 PM [facility] GLUCOSE QUANTITATIVE BLOOD XCPT REAGENT STRIP <td>POCT GLUCOSE, DOCKED</td><td>Routine</td><td>09/12/2020 11:42 AM EST</td><td></td><td> </td> 09/12/2020 11:42:00 AM [facility] URNLS DIP STICK/TABLET REAGENT AUTO MICROSCOPY <td>URI NALYSIS WITH REFLEX URINE CULTURE</td><td>Routine</td><td>09/12/2020 9:53 AM EST</td><td></td><td> </td> 09/12/2020 09:53:00 AM [facility] CULTURE BCT ISOL&PRSMPTV ID ISOLATE EA URINE <td>URINE CATHETER CULT</td><td>Routine</td><td>09/12/2020 9:53 AM EST</td><td></td><td> </td> 09/12/2020 09:53:00 AM [facility] BLOOD COUNT COMPLETE AUTOMATED <td>CBC AND DIFFERENTIAL</td><td>Routine</td><td>09/12/2020 9:53 AM EST</td><td></td><td> </td> 09/12/2020 09:53:00 AM [facility] BASIC METABOLIC PANEL CALCIUM TOTAL <td>BASIC METABOLI C PANEL</td><td>Routine</td><td>09/12/2020 9:53 AM EST</td><td></td><td> </td> 09/12/2020 09:53:00 AM [facility] GLUCOSE QUANTITATIVE BLOOD XCPT REAGENT STRIP <td>POCT GLUCOSE, DOCKED</td><td>Routine</td><td>09/12/2020 8:02 AM EST</td><td></td><td> </td> 09/12/2020 08:02:00 AM [facility] CUL PRSMPTV PTHGNC ORGANISM SCRN W/COLONY ESTIMJ <td>M RSA CULTURE</td><td>Routine</td><td>09/12/2020 5:05 AM EST</td><td></td><td> </td> 09/12/2020 05:05:00 AM [facility] XR ABDOMEN AP ABD SUPINE ONLY [id number] <td>XR ABDOMEN AP ABD SUPINE ONLY 22696</td><td>Routine</td><td>09/12/2020 3:56 AM EST</td><td></td><td> </td> 09/12/2020 03:56:00 AM [facility] RADIOLOGIC EXAMINATION TIBIA & FIBULA 2 VIEWS <td>XR T IBIA 45439</td><td>STAT</td><td>09/12/2020 12:38 AM EST</td><td></td><td> </td> 09/12/2020 12:38:00 AM [facility] RADEX FOOT COMPLETE MINIMUM 3 VIEWS <td>XR FOOT 3 OR M ORE VIEWS 19907</td><td>STAT</td><td>09/12/2020 12:38 AM EST</td><td></td><td> </td> 09/12/2020 12:38:00 AM [facility] XR CHEST FRONTAL ONLY 48286 <td>XR CHEST FRONTAL ONLY 79217</td><td>STAT</td><td>09/12/2020 12:38 AM EST</td><td></td><td> </td> 09/12/2020 12:38:00 AM [facility] RADEX ANKLE COMPLETE MINIMUM 3 VIEWS <td>XR ANKLE 3 OR MORE VIEWS 77774</td><td>STAT</td><td>09/12/2020 12:38 AM EST</td><td></td><td> </td> 09/12/2020 12:38:00 AM [facility] BASIC METABOLIC PANEL CALCIUM IONIZED <td>POCT ISTAT CHEM8</td><td>Routine</td><td>09/11/2020 11:30 PM EST</td><td></td><td> </td> 09/11/2020 11:30:00 PM [facility] BLOOD GASES ANY COMBINATION PH PCO2 PO2 CO2 HCO3 <td>P OCT ISTAT VBG/LAC</td><td>Routine</td><td>09/11/2020 11:25 PM EST</td><td></td><td> </td> 09/11/2020 11:25:00 PM [facility] RESPIRATORY PATHOGEN PANEL <td>RESPIRATORY PATHOGEN PANEL</td><td>Routine</td><td>09/11/2020 11:02 PM EST</td><td></td><td> </td> 09/11/2020 11:02:00 PM [facility] COVID-19 PCR <td>COVID-19 PCR</td><td>Rou yamilet</td><td>09/11/2020 11:02 PM EST</td><td></td><td> </td> 09/11/2020 11:02:00 PM [facility] THROMBOPLASTIN TIME PARTIAL PLASMA/WHOLE BLOOD <td>PAR TIAL THROMBOPLASTIN TIME (PTT)</td><td>Routine</td><td>09/11/2020 11:02 PM EST</td><td></td><td> </td> 09/11/2020 11:02:00 PM [facility] CULTURE BACTERIAL BLOOD AEROBIC W/ID ISOLATES <td>BLOO D CULTURE</td><td>Routine</td><td>09/11/2020 11:02 PM EST</td><td></td><td></td> 09/11/2020 11:02:00 PM [facility] CULTURE BACTERIAL BLOOD AEROBIC W/ID ISOLATES <td>BLOO D CULTURE</td><td>Routine</td><td>09/11/2020 11:02 PM EST</td><td></td><td></td> 09/11/2020 11:02:00 PM [facility] SEDIMENTATION RATE RBC AUTOMATED <td>SEDIMENTATION RAT E, AUTOMATED</td><td>Routine</td><td>09/11/2020 11:02 PM EST</td><td></td><td> </td> 09/11/2020 11:02:00 PM [facility] PROTHROMBIN TIME <td>PROTIME INR</td><td>Rout ine</td><td>09/11/2020 11:02 PM EST</td><td></td><td> </td> 09/11/2020 11:02:00 PM [facility] BLOOD COUNT COMPLETE AUTO&AUTO DIFRNTL WBC COUNT <td>C BC AND DIFFERENTIAL</td><td>Routine</td><td>09/11/2020 11:02 PM EST</td><td></td><td> </td> 09/11/2020 11:02:00 PM [facility] BLOOD TYPING ABO <td>TYPE AND SCREEN</td><td> STAT</td><td>09/11/2020 11:02 PM EST</td><td></td><td> </td> 09/11/2020 11:02:00 PM [facility] C-REACTIVE PROTEIN <td>INFLAMMATORY C-REACTIVE PROTEIN (CRP)</td><td>Routine</td><td>09/11/2020 11:02 PM EST</td><td></td><td> </td> 09/11/2020 11:02:00 PM [facility] HEMOGLOBIN GLYCOSYLATED A1C <td>HEMOGLOBIN A1C</td><td>Routine</td><td>09/11/2020 11:02 PM EST</td><td></td><td> </td> 09/11/2020 11:02:00 PM [facility] DRUG SCREEN QUALITATIVE VANCOMYCIN <td>VANCOMYCIN, RANDOM</td><td>Routine</td><td>09/11/2020 11:02 PM EST</td><td></td><td> </td> 09/11/2020 11:02:00 PM [facility] BASIC METABOLIC PANEL CALCIUM TOTAL <td>BASIC METABOLI C PANEL</td><td>STAT</td><td>09/11/2020 11:02 PM EST</td><td></td><td> </td> 09/11/2020 11:02:00 PM [facility] URINALYSIS W/MICROSCOPIC & CULTURE IF INDICATED <td><c ontent ID="[email or web address]">URINALYSIS W/MICROSCOPIC & CULTURE IF INDICATED</content></td><td>STAT</td><td>09/11/2020 5:25 PM EST</td><td><paragraph>Peripheral vascular disease (CMS/HCC)</paragraph></td><td><paragraph styleCode="header">Results for this procedure are in the <content styleCode="[id number]">results section</content>.</paragraph></td> 09/11/2020 05:25:00 PM EST Peripheral vascular disease (CMS/HCC) [facility] Peripheral vascular disease ([facility]/HCC) CT ANGIOGRAPHY LOWER EXTREMITY <td>CT LOWER EXTREMITY RIGHT ANGIO W AND WO IV CONTRAST</td><td>STAT</td><td>09/11/2020 3:31 PM EST</td><td></td><td> </td> 09/11/2020 03:31:49 PM EST [facility] DUP-SCAN LXTR ART/ARTL BPGS UNI/LMTD STUDY <td>ULTRASO UND ARTERIAL LOWER EXTREMITY RIGHT</td><td>STAT</td><td>09/11/2020 1:06 PM EST</td><td></td><td> </td> 09/11/2020 01:06:52 PM EST [facility] POCT I-STAT CHEM8+ UNSOLICITED RESULTS <td>POCT I-STAT CHEM8+ UNSOLICITED RESULTS</td><td>Routine</td><td>09/11/2020 1:05 PM EST</td><td></td><td> </td> 09/11/2020 01:05:00 PM EST [facility] PT ON THERAPY <td>PT ON THERAPY</td><td>ST AT</td><td>09/11/2020 1:00 PM EST</td><td></td><td> </td> 09/11/2020 01:00:00 PM EST [facility] PTT ON THERAPY <td>PTT ON THERAPY</td><td>S TAT</td><td>09/11/2020 1:00 PM EST</td><td></td><td> </td> 09/11/2020 01:00:00 PM EST [facility] N-TERMINAL PROBNP (BNP) <td>N-TERMINAL PROBNP (BNP)</td><td>STAT</td><td>09/11/2020 1:00 PM EST</td><td></td><td> </td> 09/11/2020 01:00:00 PM EST [facility] CBC AND DIFFERENTIAL <td>CBC AND DIFFERENTIAL</td ><td>STAT</td><td>09/11/2020 1:00 PM EST</td><td></td><td> </td> 09/11/2020 01:00:00 PM EST [facility] MAGNESIUM <td>MAGNESIUM</td><td>STAT</ td><td>09/11/2020 1:00 PM EST</td><td></td><td> </td> 09/11/2020 01:00:00 PM EST [facility] LIPASE <td>LIPASE</td><td>STAT</td> <td>09/11/2020 1:00 PM EST</td><td></td><td> </td> 09/11/2020 01:00:00 PM EST [facility] LACTATE <td>LACTIC ACID</td><td>STAT </td><td>09/11/2020 1:00 PM EST</td><td></td><td> </td> 09/11/2020 01:00:00 PM EST [facility] CREATINE KINASE TOTAL <td>CK</td><td>STAT</td><td> 09/11/2020 1:00 PM EST</td><td></td><td> </td> 09/11/2020 01:00:00 PM [facility] COMPREHENSIVE METABOLIC PANEL <td>COMPREHENSIVE METABO LIC PANEL</td><td>STAT</td><td>09/11/2020 1:00 PM EST</td><td></td><td> </td> 09/11/2020 01:00:00 PM [facility] XR CHEST 1 VIEW <td>XR CHEST 1 VIEW</td><td> STAT</td><td>09/11/2020 12:59 PM EST</td><td></td><td> </td> 09/11/2020 12:59:12 PM [facility] POCT GLUCOSE METER UNSOLICITED RESULTS <td>POCT GLUCOS E METER UNSOLICITED RESULTS</td><td>Routine</td><td>09/11/2020 12:05 PM EST</td><td></td><td> </td> 09/11/2020 12:05:00 PM EST [facility] POCT SARS-COV-2, PCR UNSOLICITED RESULTS <td>POCT SARS -COV-2, PCR UNSOLICITED RESULTS</td><td>Routine</td><td>09/07/2020 1:52 PM EST</td><td></td><td> </td> 09/07/2020 01:52:00 PM EST [facility] POCT GLUCOSE METER UNSOLICITED RESULTS <td>POCT GLUCOS E METER UNSOLICITED RESULTS</td><td>Routine</td><td>09/07/2020 11:23 AM EST</td><td></td><td> </td> 09/07/2020 11:23:00 AM EST [facility] POCT GLUCOSE METER UNSOLICITED RESULTS <td>POCT GLUCOS E METER UNSOLICITED RESULTS</td><td>Routine</td><td>09/07/2020 9:01 AM EST</td><td></td><td> </td> 09/07/2020 09:01:00 AM EST [facility] RBC AND PLATELET MORPHOLGY <td>RBC AND PLATELET MORPHOLGY</td><td>Timed</td><td>09/07/2020 6:00 AM EST</td><td></td><td> </td> 09/07/2020 06:00:00 AM EST [facility] CBC AND DIFFERENTIAL <td>CBC AND DIFFERENTIAL</td ><td>Timed</td><td>09/07/2020 6:00 AM EST</td><td></td><td> </td> 09/07/2020 06:00:00 AM [facility] DRUG SCREEN QUALITATIVE VANCOMYCIN <td>VANCOMYCIN, TROUGH</td><td>Timed</td><td>09/07/2020 6:00 AM EST</td><td></td><td> </td> 09/07/2020 06:00:00 AM [facility] BASIC METABOLIC PANEL CALCIUM TOTAL <td>BASIC METABOLI C PANEL</td><td>Timed</td><td>09/07/2020 6:00 AM EST</td><td></td><td> </td> 09/07/2020 06:00:00 AM [facility] POCT GLUCOSE METER UNSOLICITED RESULTS <td>POCT GLUCOS E METER UNSOLICITED RESULTS</td><td>Routine</td><td>09/06/2020 7:38 PM EST</td><td></td><td> </td> 09/06/2020 07:38:00 PM [facility] POCT GLUCOSE METER UNSOLICITED RESULTS <td>POCT GLUCOS E METER UNSOLICITED RESULTS</td><td>Routine</td><td>09/06/2020 5:28 PM EST</td><td></td><td> </td> 09/06/2020 05:28:00 PM [facility] POCT GLUCOSE METER UNSOLICITED RESULTS <td>POCT GLUCOS E METER UNSOLICITED RESULTS</td><td>Routine</td><td>09/06/2020 11:20 AM EST</td><td></td><td> </td> 09/06/2020 11:20:00 AM [facility] CT ABDOMEN & PELVIS W/O CONTRST 1/> BODY REGIONS <td>C T ABDOMEN PELVIS W WO CONTRAST</td><td>Routine</td><td>09/06/2020 10:50 AM EST</td><td></td><td> </td> 09/06/2020 10:50:04 AM EST [facility] POCT GLUCOSE METER UNSOLICITED RESULTS <td>POCT GLUCOS E METER UNSOLICITED RESULTS</td><td>Routine</td><td>09/06/2020 8:26 AM EST</td><td></td><td> </td> 09/06/2020 08:26:00 AM EST [facility] OXYGEN THERAPY <td>OXYGEN THERAPY</td><td>R outine</td><td>09/06/2020 8:00 AM EST</td><td></td><td></td> 09/06/2020 08:00:05 AM EST [facility] OXYGEN DAILY PROTOCOL <td>OXYGEN DAILY PROTOCOL</td><td>Routine</td><td>09/06/2020 8:00 AM EST</td><td></td><td></td> 09/06/2020 08:00:05 AM EST [facility] BLOOD COUNT PLATELET AUTOMATED <td>PLATELET COUNT</td><td>Timed</td><td>09/06/2020 5:42 AM EST</td><td></td><td> </td> 09/06/2020 05:42:00 AM EST [facility] BILIRUBIN TOTAL <td>BILIRUBIN, TOTAL</td><td >Timed</td><td>09/06/2020 5:42 AM EST</td><td></td><td> </td> 09/06/2020 05:42:00 AM EST [facility] BASIC METABOLIC PANEL CALCIUM TOTAL <td>BASIC METABOLI C PANEL</td><td>Routine</td><td>09/06/2020 5:42 AM EST</td><td></td><td> </td> 09/06/2020 05:42:00 AM EST [facility] OXYGEN THERAPY <td>OXYGEN THERAPY</td><td>R outine</td><td>09/05/2020 8:00 PM EST</td><td></td><td></td> 09/05/2020 08:00:07 PM EST [facility] OXYGEN DAILY PROTOCOL <td>OXYGEN DAILY PROTOCOL</td><td>Routine</td><td>09/05/2020 8:00 PM EST</td><td></td><td></td> 09/05/2020 08:00:07 PM EST [facility] POCT GLUCOSE METER UNSOLICITED RESULTS <td>POCT GLUCOS E METER UNSOLICITED RESULTS</td><td>Routine</td><td>09/05/2020 7:52 PM EST</td><td></td><td> </td> 09/05/2020 07:52:00 PM EST [facility] POCT GLUCOSE METER UNSOLICITED RESULTS <td>POCT GLUCOS E METER UNSOLICITED RESULTS</td><td>Routine</td><td>09/05/2020 5:04 PM EST</td><td></td><td> </td> 09/05/2020 05:04:00 PM EST [facility] DRUG SCREEN QUALITATIVE VANCOMYCIN <td>VANCOMYCIN, TROUGH</td><td>Timed</td><td>09/05/2020 2:26 PM EST</td><td></td><td> </td> 09/05/2020 02:26:00 PM EST [facility] POCT GLUCOSE METER UNSOLICITED RESULTS <td>POCT GLUCOS E METER UNSOLICITED RESULTS</td><td>Routine</td><td>09/05/2020 12:14 PM EST</td><td></td><td> </td> 09/05/2020 12:14:00 PM EST [facility] OXYGEN THERAPY <td>OXYGEN THERAPY</td><td>R outine</td><td>09/05/2020 8:00 AM EST</td><td></td><td></td> 09/05/2020 08:00:01 AM EST [facility] OXYGEN DAILY PROTOCOL <td>OXYGEN DAILY PROTOCOL</td><td>Routine</td><td>09/05/2020 8:00 AM EST</td><td></td><td></td> 09/05/2020 08:00:01 AM EST [facility] POCT GLUCOSE METER UNSOLICITED RESULTS <td>POCT GLUCOS E METER UNSOLICITED RESULTS</td><td>Routine</td><td>09/05/2020 7:45 AM EST</td><td></td><td> </td> 09/05/2020 07:45:00 AM EST [facility] ULTRASOUND ABDOMINAL REAL TIME W/IMAGE LIMITED <td>US ABDOMEN LIMITED</td><td>Routine</td><td>09/05/2020 7:40 AM EST</td><td></td><td> </td> 09/05/2020 07:40:45 AM EST [facility] POCT GLUCOSE METER UNSOLICITED RESULTS <td>POCT GLUCOS E METER UNSOLICITED RESULTS</td><td>Routine</td><td>09/04/2020 8:30 PM EST</td><td></td><td> </td> 09/04/2020 08:30:00 PM EST [facility] OXYGEN DAILY PROTOCOL <td>OXYGEN DAILY PROTOCOL</td><td>Routine</td><td>09/04/2020 8:00 PM EST</td><td></td><td></td> 09/04/2020 08:00:05 PM EST [facility] OXYGEN THERAPY <td>OXYGEN THERAPY</td><td>R outine</td><td>09/04/2020 8:00 PM EST</td><td></td><td></td> 09/04/2020 08:00:05 PM EST [facility] POCT GLUCOSE METER UNSOLICITED RESULTS <td>POCT GLUCOS E METER UNSOLICITED RESULTS</td><td>Routine</td><td>09/04/2020 5:03 PM EST</td><td></td><td> </td> 09/04/2020 05:03:00 PM EST [facility] POCT GLUCOSE METER UNSOLICITED RESULTS <td>POCT GLUCOS E METER UNSOLICITED RESULTS</td><td>Routine</td><td>09/04/2020 12:13 PM EST</td><td></td><td> </td> 09/04/2020 12:13:00 PM EST [facility] POCT GLUCOSE METER UNSOLICITED RESULTS <td>POCT GLUCOS E METER UNSOLICITED RESULTS</td><td>Routine</td><td>09/04/2020 8:25 AM EST</td><td></td><td> </td> 09/04/2020 08:25:00 AM EST [facility] OXYGEN THERAPY <td>OXYGEN THERAPY</td><td>R outine</td><td>09/04/2020 8:00 AM EST</td><td></td><td></td> 09/04/2020 08:00:03 AM EST [facility] OXYGEN DAILY PROTOCOL <td>OXYGEN DAILY PROTOCOL</td><td>Routine</td><td>09/04/2020 8:00 AM EST</td><td></td><td></td> 09/04/2020 08:00:03 AM EST [facility] C-REACTIVE PROTEIN <td>C-REACTIVE PROTEIN</td>< td>Routine</td><td>09/04/2020 5:25 AM EST</td><td></td><td> </td> 09/04/2020 05:25:00 AM EST [facility] POCT GLUCOSE METER UNSOLICITED RESULTS <td>POCT GLUCOS E METER UNSOLICITED RESULTS</td><td>Routine</td><td>09/03/2020 9:25 PM EST</td><td></td><td> </td> 09/03/2020 09:25:00 PM EST [facility] OXYGEN THERAPY <td>OXYGEN THERAPY</td><td>R outine</td><td>09/03/2020 8:00 PM EST</td><td></td><td></td> 09/03/2020 08:00:04 PM EST [facility] OXYGEN DAILY PROTOCOL <td>OXYGEN DAILY PROTOCOL</td><td>Routine</td><td>09/03/2020 8:00 PM EST</td><td></td><td></td> 09/03/2020 08:00:04 PM EST [facility] POCT GLUCOSE METER UNSOLICITED RESULTS <td>POCT GLUCOS E METER UNSOLICITED RESULTS</td><td>Routine</td><td>09/03/2020 3:50 PM EST</td><td></td><td> </td> 09/03/2020 03:50:00 PM EST [facility] POCT GLUCOSE METER UNSOLICITED RESULTS <td>POCT GLUCOS E METER UNSOLICITED RESULTS</td><td>Routine</td><td>09/03/2020 12:39 PM EST</td><td></td><td> </td> 09/03/2020 12:39:00 PM EST [facility] OXYGEN THERAPY <td>OXYGEN THERAPY</td><td>R outine</td><td>09/03/2020 8:00 AM EST</td><td></td><td></td> 09/03/2020 08:00:04 AM [facility] OXYGEN DAILY PROTOCOL <td>OXYGEN DAILY PROTOCOL</td><td>Routine</td><td>09/03/2020 8:00 AM EST</td><td></td><td></td> 09/03/2020 08:00:04 AM EST [facility] POCT GLUCOSE METER UNSOLICITED RESULTS <td>POCT GLUCOS E METER UNSOLICITED RESULTS</td><td>Routine</td><td>09/03/2020 7:34 AM EST</td><td></td><td> </td> 09/03/2020 07:34:00 AM [facility] BLOOD COUNT COMPLETE AUTO&AUTO DIFRNTL WBC COUNT <td>H C CBC W/ DIFFERENTIAL</td><td>Routine</td><td>09/03/2020 5:00 AM EST</td><td></td><td> </td> 09/03/2020 05:00:00 AM EST [facility] BILIRUBIN TOTAL <td>BILIRUBIN, TOTAL</td><td >Timed</td><td>09/03/2020 5:00 AM EST</td><td></td><td> </td> 09/03/2020 05:00:00 AM EST [facility] BASIC METABOLIC PANEL CALCIUM TOTAL <td>BASIC METABOLI C PANEL</td><td>Routine</td><td>09/03/2020 5:00 AM EST</td><td></td><td> </td> 09/03/2020 05:00:00 AM EST [facility] DRUG SCREEN QUALITATIVE VANCOMYCIN <td>VANCOMYCIN, TROUGH</td><td>Timed</td><td>09/02/2020 10:30 PM EST</td><td></td><td> </td> 09/02/2020 10:30:00 PM [facility] OXYGEN THERAPY <td>OXYGEN THERAPY</td><td>R outine</td><td>09/02/2020 8:00 PM EST</td><td></td><td></td> 09/02/2020 08:00:05 PM [facility] OXYGEN DAILY PROTOCOL <td>OXYGEN DAILY PROTOCOL</td><td>Routine</td><td>09/02/2020 8:00 PM EST</td><td></td><td></td> 09/02/2020 08:00:05 PM EST [facility] POCT GLUCOSE METER UNSOLICITED RESULTS <td>POCT GLUCOS E METER UNSOLICITED RESULTS</td><td>Routine</td><td>09/02/2020 7:15 PM EST</td><td></td><td> </td> 09/02/2020 07:15:00 PM EST [facility] POCT GLUCOSE METER UNSOLICITED RESULTS <td>POCT GLUCOS E METER UNSOLICITED RESULTS</td><td>Routine</td><td>09/02/2020 4:24 PM EST</td><td></td><td> </td> 09/02/2020 04:24:00 PM EST [facility] POCT GLUCOSE METER UNSOLICITED RESULTS <td>POCT GLUCOS E METER UNSOLICITED RESULTS</td><td>Routine</td><td>09/02/2020 12:03 PM EST</td><td></td><td> </td> 09/02/2020 12:03:00 PM EST [facility] OXYGEN THERAPY <td>OXYGEN THERAPY</td><td>R outine</td><td>09/02/2020 10:22 AM EST</td><td></td><td></td> 09/02/2020 10:22:00 AM EST [facility] OXYGEN THERAPY <td>OXYGEN THERAPY</td><td>R outine</td><td>09/02/2020 10:22 AM EST</td><td></td><td></td> 09/02/2020 10:22:00 AM EST [facility] OXYGEN THERAPY <td>OXYGEN THERAPY</td><td>R outine</td><td>09/02/2020 10:22 AM EST</td><td></td><td></td> 09/02/2020 10:22:00 AM EST [facility] LARGE VOLUME NEBULIZATION <td>LARGE VOLUME NEBULIZATION</td><td>Routine</td><td>09/02/2020 10:22 AM EST</td><td></td><td></td> 09/02/2020 10:22:00 AM EST [facility] EXTUBATION <td>EXTUBATION</td><td>Routi ne</td><td>09/02/2020 10:22 AM EST</td><td></td><td></td> 09/02/2020 10:22:00 AM EST [facility] VENTILATOR <td>VENTILATOR</td><td>Routi ne</td><td>09/02/2020 9:57 AM EST</td><td></td><td></td> 09/02/2020 09:57:00 AM EST [facility] OXYGEN THERAPY <td>OXYGEN THERAPY</td><td>R outine</td><td>09/02/2020 9:51 AM EST</td><td></td><td></td> 09/02/2020 09:51:59 AM EST [facility] OXYGEN THERAPY <td>OXYGEN THERAPY</td><td>R outine</td><td>09/02/2020 9:51 AM EST</td><td></td><td></td> 09/02/2020 09:51:59 AM EST [facility] POCT I-STAT CG4+, ARTERIAL UNSOLICITED RESULTS <td>POC T I-STAT CG4+, ARTERIAL UNSOLICITED RESULTS</td><td>Routine</td><td>09/02/2020 9:15 AM EST</td><td></td><td> </td> 09/02/2020 09:15:00 AM EST [facility] C-REACTIVE PROTEIN <td>C-REACTIVE PROTEIN</td>< td>Routine</td><td>09/02/2020 8:17 AM EST</td><td></td><td> </td> 09/02/2020 08:17:00 AM EST [facility] OXYGEN DAILY PROTOCOL <td>OXYGEN DAILY PROTOCOL</td><td>Routine</td><td>09/02/2020 8:00 AM EST</td><td></td><td></td> 09/02/2020 08:00:03 AM EST [facility] VENTILATOR <td>VENTILATOR</td><td>Routi ne</td><td>09/02/2020 5:34 AM EST</td><td></td><td></td> 09/02/2020 05:34:45 AM EST [facility] POCT GLUCOSE METER UNSOLICITED RESULTS <td>POCT GLUCOS E METER UNSOLICITED RESULTS</td><td>Routine</td><td>09/02/2020 5:13 AM EST</td><td></td><td> </td> 09/02/2020 05:13:00 AM EST [facility] BLOOD COUNT COMPLETE AUTO&AUTO DIFRNTL WBC COUNT <td>H C CBC W/ DIFFERENTIAL</td><td>Routine</td><td>09/02/2020 3:31 AM EST</td><td></td><td> </td> 09/02/2020 03:31:00 AM EST [facility] COMPREHENSIVE METABOLIC PANEL <td>COMPREHENSIVE METABO LIC PANEL</td><td>Routine</td><td>09/02/2020 3:31 AM EST</td><td></td><td> </td> 09/02/2020 03:31:00 AM EST [facility] POCT GLUCOSE METER UNSOLICITED RESULTS <td>POCT GLUCOS E METER UNSOLICITED RESULTS</td><td>Routine</td><td>09/02/2020 12:41 AM EST</td><td></td><td> </td> 09/02/2020 12:41:00 AM EST [facility] ECG Interpret & Report 09/02/2020 12:00:00 AM EST [facility] ([facility]) POCT GLUCOSE METER UNSOLICITED RESULTS <td>POCT GLUCOS E METER UNSOLICITED RESULTS</td><td>Routine</td><td>09/01/2020 9:10 PM EST</td><td></td><td> </td> 09/01/2020 09:10:00 PM EST [facility] OXYGEN DAILY PROTOCOL <td>OXYGEN DAILY PROTOCOL</td><td>Routine</td><td>09/01/2020 8:00 PM EST</td><td></td><td></td> 09/01/2020 08:00:09 PM EST [facility] POCT GLUCOSE METER UNSOLICITED RESULTS <td>POCT GLUCOS E METER UNSOLICITED RESULTS</td><td>Routine</td><td>09/01/2020 4:57 PM EST</td><td></td><td> </td> 09/01/2020 04:57:00 PM EST [facility] OXYGEN DAILY PROTOCOL <td>OXYGEN DAILY PROTOCOL</td><td>Routine</td><td>09/01/2020 4:02 PM EST</td><td></td><td></td> 09/01/2020 04:02:16 PM EST [facility] OXYGEN DAILY PROTOCOL <td>OXYGEN DAILY PROTOCOL</td><td>Routine</td><td>09/01/2020 4:02 PM EST</td><td></td><td></td> 09/01/2020 04:02:16 PM EST [facility] OXYGEN DAILY PROTOCOL <td>OXYGEN DAILY PROTOCOL</td><td>Routine</td><td>09/01/2020 4:02 PM EST</td><td></td><td></td> 09/01/2020 04:02:16 PM EST [facility] MANUAL DIFFERENTIAL <td>MANUAL DIFFERENTIAL</td> <td>Routine</td><td>09/01/2020 3:38 PM EST</td><td></td><td> </td> 09/01/2020 03:38:00 PM EST [facility] NATRIURETIC PEPTIDE <td>N-TERMINAL PROBNP (BNP)</td><td>Routine</td><td>09/01/2020 3:38 PM EST</td><td></td><td> </td> 09/01/2020 03:38:00 PM [facility] TROPONIN QUANTITATIVE <td>TROPONIN I</td><td>Routi ne</td><td>09/01/2020 3:38 PM EST</td><td></td><td> </td> 09/01/2020 03:38:00 PM [facility] BLOOD COUNT COMPLETE AUTO&AUTO DIFRNTL WBC COUNT <td>H C CBC W/ DIFFERENTIAL</td><td>Routine</td><td>09/01/2020 3:38 PM EST</td><td></td><td> </td> 09/01/2020 03:38:00 PM [facility] DRUG SCREEN QUALITATIVE VANCOMYCIN <td>VANCOMYCIN, RANDOM</td><td>Routine</td><td>09/01/2020 3:38 PM EST</td><td></td><td> </td> 09/01/2020 03:38:00 PM [facility] BASIC METABOLIC PANEL CALCIUM TOTAL <td>BASIC METABOLI C PANEL</td><td>Routine</td><td>09/01/2020 3:38 PM EST</td><td></td><td> </td> 09/01/2020 03:38:00 PM [facility] XR CHEST 1 VIEW <td>XR CHEST 1 VIEW</td><td> STAT</td><td>09/01/2020 2:45 PM EST</td><td></td><td> </td> 09/01/2020 02:45:36 PM [facility] POCT SARS-COV-2, PCR UNSOLICITED RESULTS <td>POCT SARS -COV-2, PCR UNSOLICITED RESULTS</td><td>Routine</td><td>09/01/2020 2:39 PM EST</td><td></td><td> </td> 09/01/2020 02:39:00 PM EST [facility] POCT RAPID INFLUENZA A/B UNSOLICITED RESULTS <td>POCT RAPID INFLUENZA A/B UNSOLICITED RESULTS</td><td>Routine</td><td>09/01/2020 2:39 PM EST</td><td></td><td> </td> 09/01/2020 02:39:00 PM EST [facility] CULTURE BACTERIAL BLOOD AEROBIC W/ID ISOLATES <td>BLOO D CULTURE</td><td>Routine</td><td>09/01/2020 2:24 PM EST</td><td></td><td> </td> 09/01/2020 02:24:00 PM EST [facility] CULTURE BACTERIAL BLOOD AEROBIC W/ID ISOLATES <td>BLOO D CULTURE</td><td>Routine</td><td>09/01/2020 2:24 PM EST</td><td></td><td> </td> 09/01/2020 02:24:00 PM EST [facility] TRIGLYCERIDES <td>TRIGLYCERIDES</td><td>Ti med</td><td>09/01/2020 2:24 PM EST</td><td></td><td> </td> 09/01/2020 02:24:00 PM EST [facility] POCT I-STAT CG4+, ARTERIAL UNSOLICITED RESULTS <td>POC T I-STAT CG4+, ARTERIAL UNSOLICITED RESULTS</td><td>Routine</td><td>09/01/2020 2:03 PM EST</td><td></td><td> </td> 09/01/2020 02:03:00 PM EST [facility] CUL BACT XCPT URINE BLOOD/STOOL AEROBIC ISOL <td>CULTU RE SPUTUM</td><td>Routine</td><td>09/01/2020 1:40 PM EST</td><td></td><td> </td> 09/01/2020 01:40:00 PM [facility] URNLS DIP STICK/TABLET REAGENT AUTO MICROSCOPY <td>URI NALYSIS WITH MICROSCOPIC</td><td>Routine</td><td>09/01/2020 1:40 PM EST</td><td></td><td> </td> 09/01/2020 01:40:00 PM [facility] POCT GLUCOSE METER UNSOLICITED RESULTS <td>POCT GLUCOS E METER UNSOLICITED RESULTS</td><td>Routine</td><td>09/01/2020 1:34 PM EST</td><td></td><td> </td> 09/01/2020 01:34:00 PM [facility] VENTILATOR <td>VENTILATOR</td><td>Routi ne</td><td>09/01/2020 1:30 PM EST</td><td></td><td></td> 09/01/2020 01:30:05 PM [facility] SPONTANEOUS BREATHING TRIAL <td>SPONTANEOUS BREATHING TRIAL</td><td>Routine</td><td>09/01/2020 1:28 PM EST</td><td></td><td></td> 09/01/2020 01:28:19 PM EST [facility] VENTILATOR <td>VENTILATOR</td><td>Routi ne</td><td>09/01/2020 1:28 PM EST</td><td></td><td></td> 09/01/2020 01:28:19 PM [facility] WEANING PARAMETERS <td>WEANING PARAMETERS</td>< td>Routine</td><td>09/01/2020 1:28 PM EST</td><td></td><td></td> 09/01/2020 01:28:19 PM [facility] Plain Radiography of Chest Plain Radiography of Chest 2020 12:00:00 AM [facility] Introduction of Other Anti-infective int o Peripheral Vein, Percutaneous Approach Introduction of Other Anti-infective int o Peripheral Vein, Percutaneous Approach 08/31/2020 12:00:00 AM [facility] Introduction of Electrolytic and Water B alance Substance into Peripheral Vein, Percutaneous Approach Introduction of Electrolytic and Water B alance Substance into Peripheral Vein, Percutaneous Approach 08/31/2020 12:00:00 AM [facility] Introduction of Anesthetic Agent into Re spiratory Tract, Via Natural or Artificial Opening Introduction of Anesthetic Agent into Re spiratory Tract, Via Natural or Artificial Openin 08/31/2020 12:00:00 AM [facility] INTRODUCE REMDESIVIR IN PERIPH VEIN, PERC, [place] 08/11/2020 12:00:00 AM [facility] Introduction of Anti-inflammatory into Peripheral Vein , Percutaneous Approach Introduction of Anti-inflammatory into Peripheral Vein, Percutaneous Approach 07/07/2020 12:00:00 AM [facility] DEBRIDEMENT NAIL ANY METHOD 05/21/2020 12:00:00 AM EST [facility] Results ID Date Data Source [id number] 03/16/2021 03:28:00 PM EDT [facility] @03/16/21 1429: UA W/ MICRO added. RFLXG = UMIC CIF.Method of Collection:: Voided @03/16/21 1429: UA W/ MICRO added. RFLXG = UMIC CIF.Method of Collection:: Voided [facility] Name Value Range Interpretation Code Description Data Sanjuana rce(s) Supporting Document(s) Color of Urine [facility] Appearance of Urine CLEAR [facility] pH of Urine by Test strip 7.0 5-8 [facility] Specific gravity of Urine by Refractometry 1.019 1.005-1.030 [facility] Leukocyte esterase [Presence] in Urine by Test strip NEGAT DUNG [facility] Nitrite [Presence] in Urine by Test strip NEGATIVE [facility] Protein [Presence] in Urine by Test strip NEGATIVE Above high normal [facility] @DO MICRO!!!! Glucose [Mass/volume] in Urine by Automated test strip 100 mg/dl NEGATIVE Abnormal (applies to non-numeric results) [facility] Ketones [Presence] in Urine by Test strip NEGATIVE [facility] Urobilinogen [Presence] in Urine 0.2-1 EU/dl [facility] Bilirubin.total [Presence] in Urine by Automated test strip NEGATIVE [facility] Erythrocytes [#/volume] in Urine by Test strip NEGATIVE NEGATIVE [facility] URINE MICROSCOPIC? (CIF) Microscopic Added [facility] ID Date Data Source [id number] 03/16/2021 03:28:00 PM EDT [facility] @03/16/21 1429: UA W/ MICRO added. RFLXG = UMIC CIF.Method of Collection:: Voided @03/16/21 1429: UA W/ MICRO added. RFLXG = UMIC CIF.Method of Collection:: Voided [facility] Name Value Range Interpretation Code Description Data Sanjuana rce(s) Supporting Document(s) Leukocytes [#/volume] in Urine by Manual count OCCASIONAL 0-5 [facility] Cells [Type] in Urine sediment by Light microscopy [facility] ID Date Data Source [id number] 03/16/2021 02:14:00 PM EDT [facility] @03/16/21 1429: UA W/ MICRO added. RFLXG = UMIC CIF.Method of Collection:: Voided @03/16/21 1429: UA W/ MICRO added. RFLXG = UMIC CIF.Method of Collection:: Voided [facility] Name Value Range Interpretation Code Description Data Sanjuana rce(s) Supporting Document(s) Leukocytes [#/volume] in Blood by Automated count 7.0 10*3/uL 4.45-10 .71 N [facility] Erythrocytes [#/volume] in Blood by Automated count 5.27 10*6/uL 4.3- 6.1 N [facility] Hemoglobin [Moles/volume] in Blood 13.6 g/dL 13-18 N [facility] Hematocrit [Volume Fraction] of Blood by Automated count 44.2 % 4 2-52 N [facility] Erythrocyte mean corpuscular volume [Ent itic volume] in Cord blood by Automated count 84 fL 80-96 N [facility] ital Erythrocyte mean corpuscular hemoglobin [Entitic mass] by Au tomated count 26 pg 27-31 Below low normal [facility] Erythrocyte mean corpuscular hemoglobin concentration [Mass/volume] in Cord blood 31 g/dL 33-37 Below low normal [facility] Erythrocyte distribution width [Entitic volume] by Automated cou nt 16 % 11-15 Above high normal [facility] Platelets [#/volume] in Blood by Automated count 180 10*3/uL 130-472 N [facility] ID Date Data Source [id number] 03/16/2021 06:19:00 PM EDT [facility] @03/16/21 1429: UA W/ MICRO added. RFLXG = UMIC CIF.Method of Collection:: Voided @03/16/21 1429: UA W/ MICRO added. RFLXG = UMIC CIF.Method of Collection:: Voided [facility] Name Value Range Interpretation Code Description Data Sanjuana rce(s) Supporting Document(s) Urea nitrogen [Mass/volume] in Serum or Plasma 19 mg/dL 9-23 N [facility] Sodium [Moles/volume] in Serum or Plasma 136 mmol/L 132-146 [facility] Potassium [Moles/volume] in Serum or Plasma 4.2 mmol/L 3.5-5.5 [facility] Chloride [Moles/volume] in Serum or Plasma 103 mmol/L 99-109 [facility] Carbon dioxide, total [Moles/volume] in Serum or Plasma 29 mmol/L 20 -31 N [facility] Anion gap in Serum or Plasma 8 mmol/L 8-16 [facility] Glucose [Mass/volume] in Serum or Plasma 101 mg/dL 74-106 N [facility] Creatinine 1.0 mg/dL 0.5-1.1 [facility] Glomerular filtration rate/1.73 sq M.pre dicted [Volume Rate/Area] in Serum or Plasma Greater Than 60 ABOVE 60 [facility] Alanine aminotransferase [Enzymatic acti vity/volume] in Serum or Plasma by With P-5'-P 25 U/L 10-49 N [facility] ital Aspartate aminotransferase [Enzymatic ac tivity/volume] in Serum or Plasma by With P-5'-P 16 U/L 0-33 N [facility] pital Alkaline phosphatase [Enzymatic activity/volume] in Serum or Plasma 142 U/L 45-129 Above high normal [facility] Calcium [Mass/volume] in Serum or Plasma 9.0 mg/dL 8.5-10.1 N [facility] Bilirubin.total [Mass/volume] in Serum or Plasma 0.5 mg/dL 0.3-1.2 [facility] Albumin [Mass/volume] in Serum or Plasma by Bromocresol purple (BCP) dye binding method 3.5 g/dL 3.2-4.8 N [facility] ital Protein [Mass/volume] in Serum or Plasma 7.2 g/dL 5.7-8.2 [facility] ID Date Data Source [id number] 03/16/2021 06:45:00 PM EDT [facility] @03/16/21 1429: UA W/ MICRO added. RFLXG = IC CIF.Method of Collection:: Voided @03/16/21 1429: UA W/ MICRO added. RFLXG = UMIC CIF.Method of Collection:: Voided [facility] Name Value Range Interpretation Code Description Data Sanjuana rce(s) Supporting Document(s) Hemoglobin A1c [Mass/volume] in Blood 8.9 % 3.8-5.6 Above hig h normal [facility] The following ranges may be u sed for interpretation of results: HGBA1C degree of glucose control: Greater than 8%: Action Suggested * Less than 7%: Goal of Diabetic Therapy Less than 5.6%: NormalFactors such as duration of diabetes, adherence to therapyand the age of the patient should also be considered inassessing the degree of blood glucose control.* High risk of developing assisted complications such asretinopathy, nephropathy, neuropathy, cardiopathy, etc. Some danger of hypoglycemic reaction in Type I diabetics.Some glucose intolerant individuals and "Sub Clinical"diabetics may demonstrate HGBA1C levels in this area. Glucose mean value [Moles/volume] in Blood Estimated f rom glycated hemoglobin 209 mg/dL [facility] An A1C of 7% - the goal of diabetic ther apy - is equivalentto an EAG of 154 mg/dl. ID Date Data Source [id number] 03/16/2021 06:19:00 PM EDT [facility] @03/16/21 1429: UA W/ MICRO added. RFLXG = [employer] CIF.Method of Collection:: Voided @03/16/21 1429: UA W/ MICRO added. RFLXG = UMIC CIF.Method of Collection:: Voided [facility] Name Value Range Interpretation Code Description Data Sanjuana rce(s) Supporting Document(s) Thyrotropin [Units/volume] in Serum or Plasma by Detec tion limit <= 0.005 mIU/L 0.49 u[iU]/mL 0.35-5.50 N [facility] ID Date Data Source [id number] 10/29/2020 12:00:00 AM EDT [facility] Name Value Range Interpretation Code Description Data Sanjuana rce(s) Supporting Document(s) SARS coronavirus 2 Ag Negative [facility] This lab was ordered by [facility] and rep orted by [facility]. ID Date Data Source [id number] 10/22/2020 12:00:00 AM EDT [facility] Name Value Range Interpretation Code Description Data Sanjuana rce(s) Supporting Document(s) SARS coronavirus 2 Ag Negative [facility] This lab was ordered by [place] and rep orted by [facility]. ID Date Data Source [id number] 10/16/2020 12:00:00 AM EDT [facility] Name Value Range Interpretation Code Description Data Sanjuana rce(s) Supporting Document(s) SARS coronavirus 2 Ag Negative [facility] This lab was ordered by [facility] and rep orted by [facility]. ID Date Data Source [id number] 10/08/2020 08:07:00 AM EDT [facility] Name Value Range Interpretation Code Description Data Sanjuana rce(s) Supporting Document(s) BASIC METABOLIC PANEL [facility] BASIC METABOLIC PANEL Sodium [Moles/volume] in Serum or Plasma 137 mEq/L 134 - 153 [facility] Potassium [Moles/volume] in Serum or Plasma 4.4 mEq/L 3.6 - 5.0 [facility] Chloride [Moles/volume] in Serum or Plasma 99 mEq/L 98 - 107 [facility] Carbon dioxide, total [Moles/volume] in Serum or Plasma 31 MEQ/L 22 - 30 H [facility] Glucose [Mass/volume] in Serum or Plasma 210 MG/DL 70 - 99 H [facility] BUN 22 MG/DL 7 - 21 [facility] Creatinine [Mass/volume] in Serum or Plasma 0.7 MG/DL 0.7 - 1.5 [facility] BUN/CREAT 31 8 - 27 H [facility] Calcium [Mass/volume] in Serum or Plasma 9.0 MG/DL 8.4 - 10.2 [facility] Anion gap 3 in Serum or Plasma 7.0 mmol/L 8.0 - 16.0 L [facility] AGE 65 yrs [facility] AMER GFR >60 mL/min [facility] NON-AA GFR >60 mL/min [facility] ital Male GFR Inter prentation 20-49 yrs >60 mL/min Normal 50-59 yrs >56 mL/min Normal 60-69 yrs >49 mL/min Normal 70-79yrs >42 mL/min Normal 80 and above >35 mL/min Normal Female GFR Interpretation 20-39 yrs >60 mL/min Normal 40-49 yrs >58 mL/min Normal 50-59 yrs >51 mL/min Normal 60-69 yrs >45 mL/min Normal 70-79 yrs >39 mL/min Normal 80 and above >32 mL/min Normal ID Date Data Source [id number] 10/01/2020 06:19:00 AM EDT [facility] Name Value Range Interpretation Code Description Data Sanjuana rce(s) Supporting Document(s) CULTURE URINE [facility] _CULTURE URINE_$$[id number]$$[id number]$$[id number]$$[id number]$$[id number]$$[id number]$$[id number]$$476752$$527313$$ 284246$$562260$$036289$$536567$$183961$$791304$$914660$$122633$$355690$$794871$$ 494276$$884945$$014856$$078759$$038492$$209134$$993251$$280034 -- Continued on next page --Patient: JAROD Ross Order: [id number] Page 2Culture: CULTURE URINE Status: Final ====$$[id number]$$[id number] DATE/TIME: 10/01/2020 06:06Culture: CULTURE URINE Status: FinalUrine Culture,Comprehensive: X3Rzjke urogenital flora10,000-25,000 colony forming units per mLP1 Test performed by: [facility] Edmond RAMÍREZ #: [id number] [address] [place] [address] [id number] [facility] [id number] Director : Abilio Ratliff MD NPI #:[employer] : 10/01/[email or web address] REF ID Date Data Source [id number] 09/29/2020 09:47:00 AM EDT [facility] Name Value Range Interpretation Code Description Data Sanjuana rce(s) Supporting Document(s) UR[facility]ALYSIS [facility] URINALYSIS SOURCE R [facility] COLOR yellow NORMAL: Yellow [facility] CLARITY clear NORMAL: Clear [facility] Specific gravity of Urine by Test strip 1.010 1.001 - 1.030 [facility] pH 7 5 - 9 [facility] Glucose [Mass/volume] in Urine by Test strip 250 NORMAL: Negat dung A [facility] Bilirubin.total [Presence] in Urine by Test strip NEG NORMAL: Negative [facility] Ketones [Presence] in Urine by Test strip NEG NORMAL: Negative [facility] Protein [Mass/volume] in Urine by Test strip 30 NORMAL: Negat dung [facility] Nitrite [Presence] in Urine by Test strip NEG NORMAL: Negative [facility] BLOOD NEG NORMAL: Negative [facility] Leukocyte esterase [Presence] in Urine by Test strip 25 SUSAN L: Negative [facility] Urobilinogen [Mass/volume] in Urine by Test strip NOR less ben n 1.0 mg/dL [facility] MICROSCOPIC See Below [facility] ital WBC 1 - 3 NORMAL: NONE SEEN [facility] Erythrocytes [#/volume] in Urine by Test strip 1 - 3 NORMAL: NON E SEEN [facility] EPITHELIAL FEW NORMAL: NONE SEEN [facility] Bacteria [Presence] in Urine sediment by Light microscopy Tr ilia NORMAL: NONE SEEN [facility] ID Date Data Source [id number] 09/29/2020 08:18:00 AM EDT [facility] Name Value Range Interpretation Code Description Data Sanjuana rce(s) Supporting Document(s) CBC NO DIFF [facility] ital COMPLETE BLOOD COUNT Leukocytes [#/volume] in Blood by Automated count 8.5 10^3/uL 4.2 - 1 1.0 [facility] Erythrocytes [#/volume] in Blood by Automated count 4.63 10^6/uL 4. 50 - 6.30 [facility] Hemoglobin [Mass/volume] in Blood 12.0 g/dL 14.0 - 16.0 L [facility] Hematocrit [Volume Fraction] of Blood by Automated count 38.3 % 4 1.0 - 51.0 L [facility] Erythrocyte mean corpuscular volume [Entitic volume] by Auto mated count 82.7 fL 80.0 - 94.0 [facility] Erythrocyte mean corpuscular hemoglobin [Entitic mass] by Automated count 25.9 pg 27.0 - 34.0 L [facility] Erythrocyte mean corpuscular hemoglobin concentration [Mass/volume] by Automated count 31.3 g/dL 31.0 - 36.0 [facility] Erythrocyte distribution width [Ratio] by Automated count 19.6 % 11.5 - 14.8 H [facility] Platelets [#/volume] in Blood by Automated count 205 10^3/uL 150 - 45 0 [facility] Platelet mean volume [Entitic volume] in Blood by Automated count 10.7 fL 7.4 - 10.4 H [facility] ID Date Data Source [id number] 09/30/2020 07:19:00 AM EDT [facility] Value Range Interpretation Code Description Data Sanjuana rce(s) Supporting Document(s) Triiodothyronine (T3) Free [Mass/volume] in Serum or Plasma 2.0 pg/ mL 2.0-4.4 [facility] ID Date Data Source [id number] 09/29/2020 08:28:00 AM EDT [facility] Value Range Interpretation Code Description Data Sanjuana rce(s) Supporting Document(s) Thyroxine (T4) free index in Serum or Plasma by calculation 1.60 NG/DL 0.93 - 1.70 [facility] ID Date Data Source [id number] 09/29/2020 08:28:00 AM EDT [facility] Value Range Interpretation Code Description Data Sanjuana rce(s) Supporting Document(s) Thyrotropin [Units/volume] in Serum or Plasma by Detec tion limit <= 0.05 mIU/L 1.23 uIU/mL 0.47 - 5.01 [facility] ID Date Data Source [id number] 09/29/2020 08:28:00 AM EDT [facility] Value Range Interpretation Code Description Data Sanjuana rce(s) Supporting Document(s) Ferritin [Mass/volume] in Serum or Plasma 196.2 ng/mL 5.0 - 244 [facility] ID Date Data Source [id number] 09/29/2020 08:26:00 AM EDT [facility] Value Range Interpretation Code Description Data Sanjuana rce(s) Supporting Document(s) Magnesium [Mass/volume] in Serum or Plasma 1.4 MG/DL 1.7 - 2.2 L [facility] ID Date Data Source [id number] 09/29/2020 08:26:00 AM EDT [facility] Name Value Range Interpretation Code Description Data Sanjuana rce(s) Supporting Document(s) CVE PANEL [facility] LIPID PANEL Cholesterol [Mass/volume] in Serum or Plasma 116 MG/DL 131 - 200 L [facility] Deprecated Triglyceride [Mass/volume] in Serum or Plasma 145 MG/DL 3 5 - 160 [facility] HDL 36 MG/DL 29 - 86 [facility] Cholesterol in LDL [Mass/volume] in Serum or Plasma by Direc t assay 61 mg/dL 65 - 175 L [facility] Cholesterol.total/Cholesterol in HDL [Mass Ratio] in Serum o r Plasma 3.2 3.4 - 4.9 L [facility] LDL/HDL 1.69 1.00 - 3.55 [facility] ital CVE RISK CHOL/HDL LDL/HDLMEN: 1/2 AVERAGE 3.43 1.00 AVERAGE 4.97 3.55 2X AVERAGE 9.55 6.25 3X AVERAGE 23.99 7.99WOMEN: 1/2 AVERAGE 3.27 1.47 AVERAGE 4.44 3.22 2X AVERAGE 7.05 5.03 3X AVERAGE 11.04 6.14 ID Date Data Source [id number] 09/29/2020 08:26:00 AM EDT [facility] Name Value Range Interpretation Code Description Data Sanjuana rce(s) Supporting Document(s) Iron [Mass/volume] in Serum or Plasma 53 UG/DL 42 - 135 [facility] Iron binding capacity.unsaturated [Mass/volume] in Serum or Plasma 162 UG/DL 112 - 347 [facility] Iron binding capacity [Mass/volume] in Serum or Plasma 215 ug/dL 250 - 450 L [facility] Iron saturation [Mass Fraction] in Serum or Plasma 25 % [facility] ID Date Data Source [id number] 09/29/2020 08:26:00 AM EDT [facility] Name Value Range Interpretation Code Description Data Sanjuana rce(s) Supporting Document(s) COMPREHENSIVE METABOLIC PANEL [facility] COMPREHENSIVE METABOLIC PANEL Sodium [Moles/volume] in Serum or Plasma 133 mEq/L 134 - 153 L [facility] Potassium [Moles/volume] in Serum or Plasma 4.0 mEq/L 3.6 - 5.0 [facility] Chloride [Moles/volume] in Serum or Plasma 96 mEq/L 98 - 107 L [facility] Carbon dioxide, total [Moles/volume] in Serum or Plasma 28 MEQ/L 22 - 30 [facility] Glucose [Mass/volume] in Serum or Plasma 252 MG/DL 70 - 99 H [facility] BUN 15 MG/DL 7 - 21 [facility] Creatinine [Mass/volume] in Serum or Plasma 0.6 MG/DL 0.7 - 1.5 L [facility] BUN/CREAT 25 8 - 27 [facility] Protein [Mass/volume] in Serum or Plasma 5.7 G/DL 6.3 - 8.2 L [facility] Albumin [Mass/volume] in Serum or Plasma 3.3 G/DL 3.9 - 5.0 L [facility] Globulin [Mass/volume] in Serum by calculation 2.4 GM/DL 2.4 - 3.2 [facility] A/G RATIO 1.4 0.8 - 2.0 [facility] Calcium [Mass/volume] in Serum or Plasma 8.5 MG/DL 8.4 - 10.2 [facility] Bilirubin.total [Mass/volume] in Serum or Plasma <0.7 MG/DL 0.2 - 1.3 [facility] Alkaline phosphatase [Enzymatic activity/volume] in Serum or Plasma 65 U/L 38 - 126 [facility] Aspartate aminotransferase [Enzymatic activity/volume] in Serum or Plasma 32 U/L 5 - 40 [facility] Alanine aminotransferase [Enzymatic activity/volume] in Seru m or Plasma 72 U/L 7 - 56 H [facility] Anion gap 3 in Serum or Plasma 9.0 mmol/L 8.0 - 16.0 [facility] AGE 65 yrs [facility] NON-AA GFR >60 mL/min [facility] ital AFR AMER GFR >60 mL/min [facility] Male GFR In terprentation 20-49 yrs >60 mL/min Normal 50-59 yrs >56 mL/min Normal 60-69 yrs >49 mL/min Normal 70-79yrs >42 mL/min Normal 80 and above >35 mL/min Normal Female GFR Interpretation 20-39 yrs >60 mL/min Normal 40-49 yrs >58 mL/min Normal 50-59 yrs >51 mL/min Normal 60-69 yrs >45 mL/min Normal 70-79 yrs >39 mL/min Normal 80 and above >32 mL/min Normal ID Date Data Source [id number] 09/29/2020 08:26:00 AM EDT [facility] Name Value Range Interpretation Code Description Data Sanjuana rce(s) Supporting Document(s) Hemoglobin A1c/Hemoglobin.total in Blood 7.6 % 4.4 - 6.1 H [facility] {A1]{HB] ID Date Data Source [id number] 09/24/2020 11:27:00 AM EST [facility] [address] [place] [address] PHONE: [phone] FAX: [phone] Name .................. : JAROD Ross Acct Number.................. : [id number] ROOM. ................. : TR-03 Number ................... : [id number] Stay type ............. : E/R Discharge Date......... ... : Admit Date ......... : 04/06 Admit Phys .................... : WILFRID PA Date of ....... : 1955 Family Phys ................... : ADY Phone .................. : [phone] Age ................................ : 65 Film# .................. .:[id number] Sex ................................. : M Unsigned transcriptions are preliminary reports and do not represent a medical or legal document CT CTA CHEST NON-CORONARY Talon Andrade 58463 COMPLETE:09/22/20 19:18 [facility] 5938 Reason(s): positive D-Dimer hypoxia CTA OF THE CHEST WITH CONTRAST: INDICATION: Elevated D-dimer and hypoxia. FINDINGS: The neck base is clear. There is a background of moderate chronic interstitial changes. In the right upper lobe, there is a moderate infiltrate. The heart is normal in size. Severe coronary artery calcifications are noted. There is mild to moderate reactive lymphadenopathy in the right hilum measuring up to 3.0 x 1.8 cm. No pulmonary embolism is visualized. The visualized upper abdomen demonstrates high density material in the dependent portion of the gallbladder, likely sludge or small stones. No acute osseous abnormality. IMPRESSION: 1. No pulmonary embolism. 2. Moderate right upper lobe pneumonia. 3. Gallbladder sludge or gallstones, partially visualized. If clinically indicated, this could be further evaluated with nonemergent right upper quadrant ultrasound. While performing the above CT examination, radiation dose reduction was accomplished utilizing automated exposure control, adjusting of the mA and kV based on the patient's body size and/or the use of imperative reconstructive techniques. CT dose: 616.7 mGycm Page 1 of 2 [place] [address] PHONE: [phone] FAX: [phone] Name .................. : JAROD oRss Acct Number.................. : [id number] ROOM. ................. : TR- MR Number ................... : [id number] Stay type ............. : E/R Discharge Date......... ... : Admit Date ......... : 09/22/20 Admit Phys .................... : WILFRID BASILIO Date of ....... : 1955 Family Phys ................... : KALINSAKSHIPATRICK Denilson ne .................. : [phone] Age ................................ : 65 Film# .................. .:[id number] Sex ................................. : M Unsigned transcriptions are preliminary reports and do not represent a medical or legal document CT CTA CHEST NON-CORONARY W [address]453 COMPLETE:09/22/20 19:18 [facility] 5938 Reason(s): positive D-Dimer hypoxia Contrast agent in mL: 75 Isovue 370 Method of administration: Intravenous Electronically Reviewed and Signed By Patric Toscano M.D. , 09/24/20 11:27, [facility] Transcribe Initials: DZ , Transcribe Date: 09/22/20 23:30, Dictation Date: Copy for: 002 [facility] Copy for: 710 [facility] Page 2 of 2 Name Value Range Interpretation Code Description Data Sanjuana rce(s) Supporting Document(s) ID Date Data Source [id number] 09/23/2020 10:49:[address] [facility] [address] [place] [address] RESPIRATORY CARE REPORT ==== ---------NAME------- NUMBER SEX AGE ADMIT DISC. XRAY# F/C CARLTON Ross [id number] M 65 09/23/20 [id number] M4 I/P DATE OF : 1955 M/R# [id number] #: [phone] CCU2 LOCATION: [facility] [address] COMPLETE:09/23/20 00:4 5 T 28681 PHYSICIAN: RADHA BASILIO Name Value Range Interpretation Code Description Data Sanjuana rce(s) Supporting Document(s) ID Date Data Source [id number] 09/23/2020 01:50:00 PM EST [facility] [address] [place] [address] PHONE: [phone] FAX: [phone] Name .................. : JAROD Ross Acct Number.................. : [id number] ROOM. ................. : 119-1 Number ................... : [id number] Stay type ............. : O/P Discharge Date......... ... : Admit Date ......... : 09/22/20 Admit Phys .................... : RADHA PRATHER Date of ....... : 1955 Family Phys ................... : ADY Phone .................. : [phone] Age ................................ : 65 Film# .................. .:[id number] Sex ................................. : M Unsigned transcriptions are preliminary reports and do not represent a medical or legal document CHEST 1 VIEW 41074 COMPLETE:09/22/20 16:30 [facility] 5921 Reason(s): Shortness of Breath CHEST X-RAY: SINGLE VIEW COMPARISON: 09/01/20 FINDINGS: There has been significant improvement of the previously noted opacity throughout the lung s bilaterally. This apparently represents a combination of improving pneumonia and congestive heart failure. There does remain a suboptimal inspiration. The cardiomediastinal silhouette is magnified by the AP portable examination. Fixation hardware projects over the lower cervical spine. IMPRESSION: Findings suggest significant improvement in previously identified bilaterally pneumonia/congestive heart failure. Electronically Reviewed and Signed By Mahamed Machado MD , 09/23/20 13:50, [facility] Transcribe Initials: LEI , Transcribe Date: 09/23/20 01:39, Dictation Date: Copy for: 002 [facility] Copy for: [address] [place] [address] Page 1 of 1 Name Value Range Interpretation Code Description Data Sanjuana rce(s) Supporting Document(s) ID Date Data Source [id number] 09/23/2020 10:49:00 AM EST [facility] [address] [place] [address] PHONE: [phone] FAX: [phone] Name .................. : JAROD Ross Acct Number.................. : [id number] ROOM. ................. : TR-03 Number ................... : [id number] Stay type ............. : E/R Discharge Date......... ... : Admit Date ......... : 0304/06 Admit Phys .................... : WILFRID BASILIO Date of ....... : 1955 Family Phys ................... : ADY Phone .................. : [phone] Age ................................ : 65 Film# .................. .:[id number] Sex ................................. : M Unsigned transcriptions are preliminary reports and do not represent a medical or legal document CT HEAD W/O CONTRAST 44753 COMPLETE:09/22/20 20:00 [facility] 5939 Reason(s): Altered Sense of Awareness CT OF THE HEAD WITHOUT CONTRAST: INDICATION: Altered sense of awareness. FINDINGS: No intra-axial or extra-axial collections of fluid. Ventricles and sulci unremarkable. No midline shift or mass effect. Visualized paranasal sinuses and mastoid air cells unremarkable. IMPRESSION: No acute intracranial process. While performing the above CT examination, radiation dose reduction was accomplished utilizing automated exposure control, adjusting of the mA and kV based on the patient's body size and/or the use of imperative reconstructive techniques. CT dose: 854.5 mGycm Electronically Reviewed and Signed By Patric Toscano M.D. , 09/23/20 10:49, [facility] Transcribe Initials: LEI , Transcribe Date: 09/22/20 23:18, Dictation Date: Copy for: [address] [place] [address] Page 1 of 1 Name Value Range Interpretation Code Description Data Sanjuana rce(s) Supporting Document(s) ID Date Data Source [id number] 09/23/2020 10:15:00 AM EST [facility] Name Value Range Interpretation Code Description Data Sanjuana rce(s) Supporting Document(s) SARS coronavirus 2 RNA Not Detected [facility] This lab was ordered by [facility] Emily forbes and reported by [facility]. ID Date Data Source [id number] 09/25/2020 07:20:00 AM EST [facility] Name Value Range Interpretation Code Description Data Sanjuana rce(s) Supporting Document(s) SARS-CoV-2, DOMINICK Not Detected Not Detected [facility] This nucleic acid amplification test was developed and its performancecharacteristics determined by [email or web address]. Nucleic acidamplification tests include RT-PCR and TMA. This test has not beenFDA cleared or approved. This test has been authorized by FDA underan Emergency Use Authorization (EUA). This test is only authorizedfor the duration of time the declaration that circumstances existjustifying the authorization of the emergency use of in vitrodiagnostic tests for detection of SARS-CoV-2 virus and/or diagnosisof COVID-19 infection under section 564(b)(1) of the Act, 21 U.S.C.360bbb-3(b) (1), unless the authorization is terminated or revokedsooner.When diagnostic testing is negative, the possibility of a falsenegative result should be considered in the context of a patient'srecent exposures and the presence of clinical signs and symptomsconsistent with COVID- 19. An individual without symptoms of COVID-19and who is not shedding SARS-CoV-2 virus would expect to have anegative (not detected) result in this assay. ID Date Data Source [id number] 09/22/2020 02:52:00 PM EST [facility] 1 OrderSheet [facility] Emergency Department [address] [place] [address] Phone #: [phone] 09/22/2020 14:52 [id number] Sex: M : 1955 Age: 65yWEIGHT:83.8 kg (M) HEIGHT:72 inches (E) BMI:25.1ALLERGIES: No Known Drug AllergyCHIEF COMPLAINT: "changed" mental statusDIAGNOSIS: Altered mental status, O/E - dehydrated, Hypoxemia, Disorder of brainLAB ORDERSOrder Description Priority Entered Acknowledged InitialedABG STAT 15:09/22/2020 Cancelled: Other 15:11 Kimi Marcelino R.N., Julie R.N.; Verbal order per; Johnny Yuen PhysicianABG STAT 15:09/22/2020 15:53 Kimi Marcelino R.N. Physician;CBC w Diff STAT 15:09/22/2020 15:53 Kimi Marcelino R.N. Physician;CMP STAT 15:09/22/2020 15:53 Kimi Marcelino R.N. Physician;Ammonia Level STAT 15:09/22/2020 15:53 Kimi Marcelino R.N. Physician;D-Dimer STAT 15:09/22/2020 15:53 Kimi Marcelino R.N. Physician;PT/PTT STAT 15:09/22/2020 15:53 Kimi Marcelino R.N. Physician;Troponin-T STAT 15:09/22/2020 15:53 Kimi Marcelino R.N. Physician;Urinalysis (Cath STAT 15:09/22/2020 15:29 Jae Marcelino R.N. Physician;Blood Culture STAT 15:09/22/2020 15:53 Krystal Marcelino0m X2 (Sched Johnny Yuen R.N. 2 OrderSheet [facility] Emergency Department [address] [place] [address] Phone #: ext- [phone] 09/22/2020 14:52 Patient: DIANA OLIVERA Sex: M : 1955 Age: 65y15:11 09/22/2020) Physician;Blood Culture STAT 15:11 09/22/2020 15:53 Kimi Marcelinoq10m X2 (Sched Johnny Yuen R.N.15:21 09/22/2020) Physician;Culture, Urine STAT 15:11 09/22/2020 15:29 Kimi Marcelino(Urine, Catheter) Johnny Yuen R.N. Physician;Lactic Acid STAT 15:11 09/22/2020 15:53 Kimi Marcelino R.N. Physician;COVID-19 CAH (Not STAT 16:32 09/22/2020 16:42 Pérez,Symptomatic as Johnny AnthonyDefined by [facility] [place]NOTE 2[place] Physician; Per(09/22/20) (Not First protocol; Tonya) (Hospitalized) Wilfrid Physician(Not )(Resident inCongregate CareSetting) (NotEmployed inHealthcare Setting)ABG STAT 07:13 09/23/2020 07:37 Niru Longoria Norma MD; Maryellen CuelloDIAGNOSTIC STUDY ORDERSOrder Description Priority Entered Acknowledged InitialedChest 1 View STAT 15:11 09/22/2020 16:04 Kimi Marcelino(Oxygen?(No)) Johnny Yuen R.N. Physician; Reason for Study: Shortness of BreathCT CTA CHEST STAT 17:33 09/22/2020 18:12 Pérez,(NONCOR) W CON Johnny AnthonyINC PP (Oxygen? Physician;(Yes)) (IV?(Yes)) Reason for Study: positive D-Dimer hypoxiaCT Head W/O Cont STAT 18:16 09/22/2020 19: 56 Pérez,(Oxygen? (Yes)) Johnny Anthony Physician; Reason for Study: Altered Sense of AwarenessMEDICATION/IV/DRIP/FLUID ORDERSOrder Description Priority Entered Acknowledged InitialedNS IV : Bolus 500 17:00 09/22/2020 17:04 Kimi Marcelino 3 OrderSheet [facility] Emergency Department [address] [place] [address] Phone #: ext- [phone] 09/22/2020 14:52 Patient: DIANA OLIVERA Sex: M : 1955 Age: 65ymL, then 250 mL/hr Johnny Yuen R.N.(NOW) Physician;Lovenox Subcut 80 17:33 09/22/2020 Cancelled: Duplicate Order 17:39 Carie (HIGH ALERT Johnny Yuen PhysicianMEDICATION) Physician;GENERAL ORDERSOrder Description Priority Entered Acknowledged InitialedEKG 15:11 09/22/2020 15:11 Kimi Marcelino R.N. Physician;[Electronically signed by Johnny Yuen (19:02 09/22/2020)][Electronically signed by Susan Marrufo MD (07:19 09/23/2020)][Electronically signed by Maryellen Longoria R.N. (09:55 09/23/2020)][Electronically locked by Maryellen Longoria R.N. (09:55 09/23/2020)] Name Value Range Interpretation Code Description Data Sanjuana rce(s) Supporting Document(s) ID Date Data Source [id number] 09/22/2020 02:52:00 PM EST [facility] 1 Medication Reconciliation Report [facility] Emergency Department [address] [place] [address] Phone #: ext- [phone] 09/22/2020 14:52 Patient: DIANA OLIVERA Sex: M : 1955 Age: 65yWeight: 83.8 kgHeight/Length: 72 in.BMI: 25.1ALLERGIES: No Known Drug AllergyThe patient's Home Medications are listed below:THE FOLLOWING MEDICATIONS NEED TO BE RECONCILED: amLODIPine Besylate Oral (10 mg), daily, last dose: 09/22/2020 0700 Aspirin Oral (81 mg) 1 tablet, daily, last dose: 09/22/2020 07 Atorvastatin Calcium Oral 80 mg, daily, last dose: 09/21/2020 1900, at bedtime Baclofen Oral (10 mg) 1 tablet, 3x a day Biotene Dry Mouth Gentle Mouth/Throat, prn Bisacodyl Rectal (10 mg), prn Colace Oral 100 mg, 3x a day, prn Diflucan Oral 150 mg, x5 days, last dose: 09/22/20 07 DULoxetine HCl Oral (60 mg) 1 capsule, daily, last dose: 09/22/2020 07 Eliquis Oral (5 mg) 1 tablet, 2x a day, last dose: 09/22/2020 07 fentaNYL Transdermal 100 mcg/hr, every 3 days, held since 09/20/2020 Fish Oil Oral (1000 mg) 1 capsule, daily, last dose: 09/22/2020 07 Gabapentin Oral (600 mg) 1 tablet, 3x a day, last dose: 09/22/2020 09 Glipizide Oral 10 mg, daily, last dose: 09/22/2020 09 HumaLOG Subcutaneous 10 units, 3x a day, ?and sliding scale?, last dose: 09/22/2020 1200 2 Medication Reconciliation Report [facility] Emergency Department [address] [place] [address] Phone #: ext- [phone] 09/22/2020 14:52 Patient: DIANA OLIVERA Sex: M : 1955 Age: 65y Latanoprost Ophthalmic (0.005 %) 1 drop, at bedtime Latanoprost Ophthalmic, daily, at bedtime Levemir Subcutaneous 20 units, daily, last dose: 09/21/2020 1900, at bedtime Lisinopril Oral 2.5 mg, daily, last dose: 09/22/2020 07 Metoprolol Succinate ER Oral (50 mg) 1 tablet, daily, last dose: 09/22/2020 07 Milk of Magnesia Oral MiraLax Oral, prn Multivitamins Oral Niacor Oral (500 mg) 2 tablets, daily, last dose: 03/2021 07 oxyCODONE HCl Oral 5 mg, q6h, last dose: 09/20/2020 0845, prn Pantoprazole Sodium Oral 40 mg, daily, last dose: 09/22/2020 0500 ProAir HFA Inhalation 2 puffs, prn Salmeterol Xinafoate Inhalation 1 puff, 2x a day, last dose: 09/22/2020 07 Serevent Diskus Inhalation (50 mcg/dose) 1 puff, 2x a day, after mealsThe source(s) of the original Home Medication information:Not obtained.The following Medications were given to the patient in the Emergency Department:NS [IV] IV Fluids bolus 500 mL over 1 hour(s), then 250 mL/hr, administered: 17:04 09/22/2020The following Medications were prescribed to the patient:None. Name Value Range Interpretation Code Description Data Sanjuana rce(s) Supporting Document(s) ID Date Data Source [id number] 09/22/2020 02:52:00 PM EST [facility] 1 Medication Administration Record [facility] Emergency Department [address] [place] [address] Phone #: ext- [phone] 09/22/2020 14:52 Patient: DIANA OLIVERA Sex: M : 1955 Age: 65yWeight: 83.8 kgHeight/Length: 72 inBMI: 25.1ALLERGIES: No Known Drug Allergy Date/Time Medication Administered Medication OrderedStart NS [IV] NS IV : Bolus 500 mL, then 39565:04 09/22/2020 Dose: IV Fluids mL/hr (NOW)Kimi Marcelino R.N. Rate: 250 mL/hr over 2 hour(s)---- Bolus: 500 mL over 1 hour(s)Stop Dispensed: 1000 mL bag02:00 09/23/2020 Site: #2 right Maryellen Arredondo R.N. Name Value Range Interpretation Code Description Data Sanjuana rce(s) Supporting Document(s) ID Date Data Source [id number] 09/22/2020 02:52:00 PM [facility] 1 General Instructions [facility] Emergency Department [address] [place] [address] Phone #: ext- [phone] 09/22/2020 14:52 Patient: DIANA OLIVERA Sex: M : 1955 Age: 65yAcute mental status change with lethargy.Moderate dehydration.Hypoxia.(Electronically signed by Physician Carina 09/22/2020 19:02)Encephalopathy.(Electronically signed by Susan Marrufo MD 09/23/2020 07:19) Name Value Range Interpretation Code Description Data [facility] rce(s) Supporting Document(s) ID Date Data Source [id number] 09/22/2020 02:52:00 PM [facility] 1 Clinical Report - Nurses [facility] Emergency Department [address] [place] [address] Phone #: [phone]- [phone] 09/22/2020 14:52 Patient: DIANA OLIVERA Sex: M : 1955 Age: 65yTRIAGE Arrived by EMS. Historian: EMS. Acuity: LEVEL 3. Chief Complaint: ALTERED MENTAL STATUS and LOSS OF CONSCIOUSNESS and (LETHARGIC). This started today. ( Per EMS and nurse report, they state pt was noted to have a decreased LOC today and was being quite lethargic, low BP and hard to arose. He was d/c back to a NH on 09/14/20, he was wearing fentanyl patches and taking oxycodone and both were discontinued, he had a covid test and was positive at the end of Jul and then a negative test the beginning of Aug). EMS Treatment RETAIL PHARMACIST: EMS treatment verbally communicated and report reviewed. See report. Oxygen administered by nasal cannula. Finger stick glucose performed (514). Normal s inus rhythm. Rate: 73. SEPSIS SCREEN: SIRS SCREEN NEGATIVE. SEPSIS SCREEN NEGATIVE. No suspected or confirmed signs of infection present. ROBINSON COMA SCORE: 13- eyes open to sound (3); best verbal response- confused (4); best motor response- obeys commands (6). --15:01 09/22/20 Julio Patel RN 14:54 09/22/20. BP: 93/62. MAP: 72. HR: 72. RR: 16. O2 saturation: 100%. Temp: 98.7 F. Pain level now: 0/10. --15:01 09/22/20 Julio Patel RN. Weight: 83.8 kg measured. Height/Length: 72 inches Estimated. BMI: 25.1. --14:53 09/22/20 Julio Patel RN. Medications amLODIPine Besylate Oral (Tablet 10 mg), daily, last dose 09/22/2020 0700. Aspirin Oral (Tablet Delayed Release 81 mg) 1 tablet, daily, last dose 09/22/2020 0700. DULoxetine HCl Oral (Capsule Delayed Release Particles 60 mg) 1 capsule, daily, last dose 09/22/2020 0700. Eliquis Oral (Tablet 5 mg) 1 tablet, 2x a day, last dose 09/22/2020 07. fentaNYL Transdermal 100 mcg/hr, every 3 days (held since 09/20/2020). Gabapentin Oral (Tablet 600 mg) 1 tablet, 3x a day, last dose 09/22/2020 0900. HumaLOG Subcutaneous 10 units, 3x a day, ?and sliding scale?, last dose 09/22/2020 1200. Levemir Subcutaneous 20 units, daily at bedtime, last dose 09/21/2020 1900. Metoprolol Succinate ER Oral (Tablet Extended Release 24 Hour 50 mg) 1 tablet, daily, last dose 09/22/2020 0700. --14:58 09/22/20 Maryellen Longoria R.N. Baclofen Oral (Tablet 10 mg) 1 tablet, 3x a day. 2 Clinical Report - Nurses [facility] Emergency Department [address] [place] [address] Phone #: ext- [phone] 09/22/2020 14:52 [id number] Sex: M : 1955 Age: 65yBisacodyl Rectal (Suppository 10 mg), as needed.Colace Oral 100 mg, 3x a day as needed.Latanoprost Ophthalmic (Solution 0.005 %) 1 drop, at bedtime.Milk of Magnesia Oral.Multivitamins Oral. --14:58 09/22/20 Julio Patel RNoxyCODONE HCl Oral 5 mg, q6h as needed, last dose 09/20/2020 0845.Pantoprazole Sodium Oral 40 mg, daily, last dose 09/22/2020 0500.ProAir HFA Inhalation 2 puffs, as needed. --14:58 09/22/20 Maryellen Longoria R.N.Serevent Diskus Inhalation (Aerosol Powder Breath Activated 50 mcg/dose) 1 puff, 2x a day after meals. --14:58 09/22/20 Julio Patel RNAtorvastatin Calcium Oral 80 mg, daily at bedtime, last dose 09/21/2020 1900. --15:15 09/22/20 Maryellen Longoria R.N.Lisinopril Oral 2.5 mg, crispin ly, last dose 09/22/2020 07. --15:16 09/22/20 Maryellen Longoria R.N.Niacor Oral (Tablet 500 mg) 2 tablets, daily, last dose 09/22/2020 07. --15:17 09/22/20 Maryellen Longoria R.N.Biotene Dry Mouth Gentle Mouth/Throat, as needed. --15:21 09/22/20 Maryellen Longoria R.N.Diflucan Oral 150 mg, , x5 days, last dose 09/22/20699. --15:21 09/22/20 Maryellen Longoria R.N.Fish Oil Oral (Capsule 1000 mg) 1 capsule, daily, last dose 09/22/2020 07. --15:26 09/22/20 Maryellen Longoria R.N.Glipizide Oral 10 mg, daily, last dose 09/22/2020 09. --15:27 09/22/20 Maryellen Longoria R.N.Latanoprost Ophthalmic, daily at bedtime. --15:28 09/22/20 Maryellen Longoria R.N.MiraLax Oral, as needed. --15:29 09/22/20 Maryellen Longoria R.N.Salmeterol Xinafoate Inhalation 1 puff, 2x a day, last dose 09/22/2020699. --15:30 09/22/20 Maryellen Longoria R.N.The following entry was struck by Maryellen Longoria R.N., 15:31 (09/22/20) Reason - other.Cholecalciferol Oral (Tablet 25 MCG (1000 UT)), daily. --14:58 09/22/20 Julio Patel RNThe following entry was struck by Maryellen Longoria R.N., 15:31 (09/22/20) Reason - other.Ascorbic Acid Oral (Tablet 500 mg), 2x a day. --14:58 09/22/20 Julio Patel RNThe following entry was struck by Maryellen Longoria R.N., 15:31 (09/22/20) Reason - other.Lactobacillus Oral, 3x a day. --1409/22/20 Julio Patel RNThe following entry was struck by Maryellen Longoria R.N., 15:31 (09/22/20) Reason - other.guaiFENesin ER Oral (Tablet Extended Release 12 Hour 600 mg), 2x a day. --1409/22/20 ERICA VelasquezThe following entry was struck by Maryellen Longoria R.N., 15:31 (09/22/20) Reason - other.Amiodarone HCL Oral 200 mg, 2x a day. --1409/22/20 Julio Patel RNThe following entry was struck by Maryellen Longoria R.N., 15:31 (09/22/20) Reason - other.Zinc Oral (Capsule 220 (50 Zn) mg) 1 capsule, daily. --1409/22/20 Julio Patel RNThe following entry was struck by Maryellen Longoria R.N., 15:31 (09/22/20) Reason - other.Senna Oral (Capsule 8.6 mg) 1 capsule, 2x a day. --1409/22/20 Julio Patel RNThe following entry was struck by Maryellen Longoria R.N., 15:30 (09/22/20) Reason - other.Oscal 500/200 D-3 Oral, 2x a day. --14:09/22/20 Julio Patel RNThe following entry was struck by Maryellen Longoria R.N., 15:30 (09/22/20) Reason - other.Lidocaine patch. --1409/22/20 Julio Patel RN 3 Clinical Report - Nurses [facility] Emergency Department [address] [place] [address] Phone #: ext- [phone] 09/22/2020 14:52 Patient: DIANA OLIVERA [facility]#: [id number] Sex: M : 1955 Age: 65yThe following entry was struck by Maryellen Longoria R.N., 15:29 (09/22/20) Reason - wrong patient. Toprol XL Oral 50 mg, daily. --14:58 09/22/20 Julio Patel RNThe following entry was struck and corrected by Maryellen Longoria R.N., 15:28 ( 04/06) Reason forcorrection - other(correction). Pantoprazole Sodium Oral 40 mg, daily. --14:58 09/22/20 Julio Patel RNThe following entry was struck and corrected by Maryellen Longoria R.N., 15:28 (09/22/20) Reason forcorrection - other(correction). Metoprolol Succinate ER Oral (Tablet Extended Release 24 Hour 50 mg) 1 tablet, daily. --14:58 09/22/20Julio Patel RNThe following entry was struck and corrected by Maryellen Longoria R.N., 15:27 (09/22/20) Reason forcorrection - other(correction). Gabapentin Oral (Tablet 600 mg) 1 tablet, 3x a day. --14:58 09/22/20 Julio Patel RNThe following entry was struck and corrected by Maryellen Longoria R.N., 15:26 (09/22/20) Reason forcorrection - other(correction). fentaNYL Transdermal 100 mcg/hr, every 3 days. --14:58 09/22/20 Julio Patel RNThe following entry was struck and corrected by Maryellen Longoria R.N., 15:26 (09/22/20) Reason forcorrection - other(correction). DULoxetine HCl Oral (Capsule Delayed Release Particles 60 mg) 1 capsule, daily. --14:58 09/22/20Julio Patel RNThe following entry was struck by Maryellen Longoria R.N., 15:25 (09/22/20) Reason - other. Doxycycline Hyclate Oral (Tablet 100 mg), 2x a day. --14:58 09/22/20 Julio Patel RNThe following entry was struck and corrected by Maryellen Longoria R.N., 15:24 (09/22/20) Reason forcorrection - other(correction). Aspirin Oral (Tablet Delayed Release 81 mg) 1 tablet, 2x a day. --14:58 09/22/20 Julio Patel RNThe following entry was struck and corrected by Maryellen Longoria R.N., 15:24 (09/22/20) Reason forcorrection - other(correction). amLODIPine Besylate Oral (Tablet 10 mg) 1 tablet, daily. --14 :58 09/22/20 Julio Patel RNThe following entry was struck and corrected by Maryellen Longoria R.N., 15:20 (09/22/20) Reason forcorrection - other(correction). ProAir HFA Inhalation. --14:58 09/22/20 Julio Patel RNThe following entry was struck and corrected by Maryellen Longoria R.N., 15:20 (09/22/20) Reason forcorrection - other(correction). Levemir Subcutaneous 16u, 2x a day. --14:58 09/22/20 Julio Patel RNThe following entry was struck and corrected by Maryellen Longoria R.N., 15:17 (09/22/20) Reason forcorrection - other(correction). HumaLOG Subcutaneous. --14:58 09/22/20 Julio Patel RNThe following entry was struck and corrected by Maryellen Longoria R.N., 15:15 (09/22/20) Reason forcorrection - other(correction). Eliquis Oral (Tablet 2.5 mg) 1 tablet, 2x a day. --14:58 09/22/20 Julio Patel RNThe following entry was struck and corrected by Maryellen Longoria R.N., 15:14 (09/22/20) Reason forcorrection - other(correction). oxyCODONE HCl Oral 5 mg, q6h as needed. --14:58 09/22/20 Julio Patel RN .Allergies 4 Clinical Report - Nurses [facility] Emergency Department [address] [place] [address] Phone #: ext- [phone] 09/22/2020 14:52 Patient: DIANA OLIVERA Sex: M : 1955 Age: 65yNo Known Drug Allergy. --14:58 09/22/20 Julio Patel RN.PROBLEMS:Heart Disease.Hemiplegia affecting R.Endocarditis.Glaucom a.Hypercholesterolemia.Hypomagnesemia.Hypoxia.Hyperglycemia.Hypertension.Emphyse ma.Congestive Heart Failure.COPD - Chronic Obstructive Pulmonary Disease.Atrial Fibrillation.Cellulitis.COVID-19.Diabetes Mellitus.Dyspnea.Degenerative Joint Disease.Dehydration.Sleep Apnea.Transient cerebral ischemic attack.Tremor.Rotator cuff syndrome.Sepsis (disorder).Ulcers on toes and legs.UTI - Urinary Tract Infection.Respiratory Failure.Narcotic Dependence.Neurological Disease.MRSA.Muscle Strain, Upper Extremity.Osteoarthritis of Finger Joint.Pneumonia.Renal Insufficiency.Osteomyelitis.Peripheral Vascular Disease. --15:52 09/22/20 Kimi Marcelino R.N.ADDITIONAL SURGERIES:Amputation Lower Extremity (Left Great toe).C6 Corpectomy and Fusion c5-c6 w/ fibular strut graft .Cardiac catherization. 5 Clinical Report - Nurses [facility] Emergency Department [address] [place] [address] Phone #: ext- [phone] 09/22/2020 14:52 Patient: DIANA OLIVERA Sex: M : 1955 Age: 65y Melanoma removal 1998. Rotator Cuff Surgery. Stent placement 2015. --15:32 09/22/20 Maryellen Longoria R.N. History PAST MEDICAL HX: Immunizations: up-to-date. SOCIAL HX: Never smoker. No alcohol use or drug use. He was offered HIV testing but declined and hepatitis C testing but declined. He has not traveled outside the [place] Infectious disease exposure: No infectious disease exposure. The patient was exposed to Coronavirus. (negative covid test beginning of Aug). SELF HARM ASSESSMENT: Self harm assessment was performed. The patient answered "no" to the question(s) "Have you recently felt down, depressed, or hopeless?", "Do you have thoughts of harming or killing you rself?", "Do you have a plan for harming or killing yourself?", "Have you recently had thoughts about harming or killing others?", "Do you have any dangerous items in your possession?", "Have you noticed less interest or pleasure in doing things?", "Are you here because you tried to hurt yourself?" and "Have you ever tried to hurt yourself before today?". ABUSE ASSESSMENT: No report of abuse. NUTRITIONAL RISK ASSESSMENT: The nutritional risk assessment revealed no deficiencies. LEARNING NEEDS ASSESSMENT: The learning needs assessment revealed no barriers. FALL RISK ASSESSMENT: Fall risk assessment completed. Risk factors identified include patient age greater than 65 years and impairment of mobility. FUNCTIONAL ASSESSMENT: Functional assessment performed: uses walker. SKIN INTEGRITY ASSESSMENT: Skin integrity risk assessment completed. No skin integrity risk identified. --15:01 09/22/20 Julio Patel RN Infectious disease exposure: Patient is a known carrier of MRSA. Precautions taken. Staff notified. --15:53 09/22/20 Kimi Marcelino R.N. FAMILY HX: No significant family medical history. --15:39 09/22/20 Physician Carina. Interventions To treatment room. --15:01 09/22/20 Julio Patel RN Advanced care plan. Provided by EMS. A copy is on the chart. (FULL CODE). --15:32 09/22/20 Maryellen Longoria R.N.PHYSICAL ASSESSMENT 6 Clinical Report - Nurses [facility] Emergency Department [address] [place] [address] Phone #: ext- [phone] 09/22/2020 14:52 [id number] Sex: M : 1955 Age: 65y GENERAL / NEURO / PSYCH: Alert. He is somnolent, appears ill, has normal color for race, is cooperative and appears older than stated age. He has multiple disabilities. Decreased awareness (opens eyes to voice and lethargic). RESPIRATORY: Decreased breath sounds diffusely over both lungs. CVS: Cardiac rhythm: normal sinus rhythm; (74). ( wounds to both feet uppon arrival to ER katherine boots on.). Capillary refill is greater than 2 seconds. GI / : Abdomen soft and nontender. Bowel sounds within normal limits. Patient is incontinent of urine (attend in place). EXTREMITIES: Lower extremity edema. SKIN: Multiple healing wounds present on the right foot and left foot (Left ear posterior open wound from 02 cannula. 4x4 applied). Skin is pale. Skin is warm and dry. Skin is cool. Normal skin turgor. --15:20 09/22/20 Gabrielle Pérez.NURSING PROGRESS NOTES Oxygen administered by nasal cannula at [address] monitor, NIBP monitor and pulse oximeter placed on patient; nurse monitoring- Lead II; monitor alarms on. EKG time: (15:02 09/22/2020). EKG was performed by a nurse and shown to the ED physician. Head of bed elevated. Reassurance given. Call light placed in reach. Side rails up x 2. Bed placed in lowest position. Brakes of bed on. Patient ready for evaluation- ED physician notified. --15:02 09/22/20 Julio Patel RN ( informed Dr. Yuen that pt came over with 4 liters of oxygen and running 100%, oxygen removed and junior underwriter asked for ABG to be done orders given and carried out). --15:10 09/22/20 Kimi Marcelino R.N. Patient ID band checked: patient confirmed. Blood samples drawn. (Blood gasses drawn by RT). --15:21 09/22/20 Gabrielle Pérez Patient ID band checked for patient name and birthdate: patient confirmed. Instructions provided to collect clean catch urine and patient verbalized understanding. Clean catch urine collected; sample sent to lab for urinalysis and culture. Specimen labeled in the presence of the patient. ( pt able to void). --15:30 09/22/20 Kimi Marcelino R.N. 14:52 09/22/2020 Site #2 started prior to arrival by EMS via IV in the right antecubital space with an 20g angiocath. --15:51 09/22/20 Kimi Marcelino R.N. 15:50 09/22/2020 Site #1 started via IV in the right forearm with an 20g angiocath, with aseptic technique and good blood return; one attempt. Saline lock flushed with 10 mL saline. --15:50 09/22/20 Kimi Marcelino R.N. ( telfa dressing applied to Left posterior ear. patient resting quietly at this time, awaiting chest x ray). Two patient identifiers checked. Call light placed in reach. Side rails up x 2. Bed placed in lowest position. Brakes of bed on. Patient placed in chair. Brakes of chair on. --15:56 09/22/20 Gabrielle Pérez ( portable chest xray completed). --16:05 09/22/20 Kimi Marcelino R.N. ( o2 sat on abd 84% 2 liters of oxygen applied). --16:32 09/22/20 Kimi Marcelino R.N. 7 Clinical Report - Nurses [facility] Emergency Department [address] [place] [address] Phone #: ext- [phone] 09/22/2020 14:52 Patient: DIANA OLIVERA Sex: M : 1955 Age: 65yRounding: Position: turned and repositioned. Personal care / toileting: (pt sleeping). --16:42 09/22/20Elisa, Osvaldoda17:04 09/22/2020 Started bag #1 1000 mL IV Fluids NS; bolus of 500 mL over 1 hour(s) then at 250 mL/hrover 2 hour(s) via site #2 via IV pump. Allergies verified and confirmed 5 rights. IV patency established. IVsite checked: no pain, redness, or swelling. IV flushed thoroughly pre- and post-medication administration.Information reviewed with patient including reason for taking this medication, signs of allergic reaction andprecautions. Verbalizes understanding. --17:04 09/22/20 Kimi Marcelino R.N.The patient is sleeping. --17:25 09/22/20 Gabrielle PérezFinger stick glucose: 255; performed by nurse. --17:44 09/22/20 Kimi Marcelino R.N.Patient transported to CT by stretcher with IV, mask and hydrographical technical officer. --18:09 09/22/20 Pérez, Wanda18:27 09/22/20. Patient returned from CT by stretcher with IV, mask and hydrographical technical officer. --18:37 09/22/20Phaugusto, Wanda18:42 09/22/20.Rounding: Personal care / toileting: assisted with toileting (washed mary area). Proximity of possessions /care items: call light within easy reach. Plug ins: assured IV pump plugged in; checked status of equipmentin use (IV infusing NS). The patient is sleeping. ( Pt has Hx of sleep apnea, 02 sats range from 88-98when sleeping. 2 LT NC placed on pt.).RESPIRATORY: No respiratory distress. --18:59 09/22/20 Gabrielle PérezPatient transported to CT by stretcher with IV, mask and hydrographical technical officer. --19:50 09/22/20 Pérez, Wanda21:33 09/22/2020 IV Fluids NS via IV site #2 Bag Change: bag #1 completed. Total amount infused: 1000.STARTED bag #2 (1000 mL) at 250 mL/hr via IV pump. Confirmed 5 rights. IV patency established. IV sitechecked: no pain, redness, or swelling. IV flushed thoroughly. --21:33 09/22/20 Melecio Mauro RN21:34 09/22/2020 IV Fluids NS via IV site #2 Rate Changed: bag #2 decreased to 150 mL/hr via IV pump.Confirmed 5 Rights. IV patency established. IV site checked: no pain, redness, or swelling. IV flushedthoroughly. (Verbal order per Dr. Marrufo). --21:34 09/22/20 Melecio Mauro RNCardiac monitor, NIBP monitor and pulse oximeter placed on patient. The patient is sleeping. ( Patientwakes up when you call his name, answers questions appropriately. sleeping soundly. Manager Pharmacy onSinus at 68 BPM.). --21:35 09/22/20 Gabrielle PérezThe patient is resting quietly. Overall patient status is the same. ( US in room.).GENERAL / NEURO / PSYCH: Patient is calm and cooperative. Decreased awareness.RESPIRATORY: No respiratory distress. 8 Clinical Report - Nurses [facility] Emergency Department [address] [place] [address] Phone #: ext- [phone] 09/22/2020 14:52 Patient: DIANA OLIVERA Liz cct#: [id number] Sex: M : 1955 Age: 65yCVS: Normal sinus rhythm noted.SKIN: Skin is warm and dry. --01:09 09/23/20 Royce Paul( ceftaroline 600mg/100ml D5W given now. Set to infuse over 1 hour on a pump. Through Right forearmIV.). --01:38 09/23/20 Royce PaulOxygen administered by nasal cannula at 2 liters. The patient is sleeping. ( Incontinence carecompleted. Patient placed under pillow to Right side. RT in room to placed patient on BiPap.). Call lightplaced in reach. Side rails up x 2. Bed placed in lowest position. Brakes of bed on. --02:09 09/23/20Matthew Paul orkarlene02:45 09/22/20. BP: 100/62 taken on the left arm, via an automated monitor, while lying. MAP: 74. HR: 67(regular, normal rate and strong). RR: 20 (irregular, unlabored and normal). O2 saturation: 100% on nasalcannula at 2 liters/minute. --02:46 09/23/20 Royce Paul Wrong Value. --02:47 09/23/20 Royce PaulCardiac monitor, NIBP monitor and pulse oximeter placed on patient. Head of bed elevated 30 degrees.The patient is sleeping and has had no adverse reaction. Overall patient status is the same. Call lightplaced in reach. Side rails up x 2. Bed placed in lowest position. Brakes of bed on. --03:46 09/23/20Royce PaulReassessment acuity: LEVEL 2. The patient is resting quietly. --05:24 09/23/20 Melecio Mauro RN03:30 09/23/20. BP: 120/68 (regular adult cuff) taken on the right arm, via an automated monitor, whilelying. MAP: 85. HR: 70 (regular and normal rate). RR: 13 (regular, unlabored and normal). O2 saturation:100% on ventilator. Temp: 97.3 F (tympanic). Pain level now: 0/10. Additional comments: bipap. --05: Melecio Mauro RN Correction. --05:43 09/23/20 Royce Paul03:45 09/23/20. BP: 120/68 (regular adult cuff) taken on the right arm, via an automated monitor, whilelying. MAP: 85. HR: 70 (regular and normal rate). RR: 13 (regular, unlabored and normal). O2 saturation:100% on ventilator. Temp: 97.3 F (tympanic). Pain level now: 0/10. Additional comments: bipap. --05: Melecio Mauro RN05:24 09/23/20. BP: 116/67 (regular adult cuff) taken on the right arm, via an automated monitor, whilelying. MAP: 83. HR: 70 (regular, normal rate and strong). RR: 19 (regular, unlabored and normal). Q2qxqqscnzvz: 100% on ventilator. Temp: deferred. Additional comments: bipap. --05:26 09/23/20 ERICA ReaThe patient is resting quietly. --05:26 09/23/20 Melecio Mauro RNFinger stick glucose: 228 mg/dL; performed by nurse. Patient ID band checked for patient name andbirthdate: patient confirmed. ABG specimen obtained by respiratory therapist from the right radial artery.Post-procedure pressure applied by respiratory therapist. Post-procedure: specimen labeled in presence ofthe patient and sent to lab. ( awaiting admission. Hospitalist Cesar came to see pt; No new or ders.).GENERAL / NEURO / PSYCH: The patient reports restlessness. The patient is disoriented. Patient 9 Clinical Report - Nurses [facility] Emergency Department [address] [place] [address] Phone #: ext- [phone] 09/22/2020 14:52 Patient: DIANA OLIVERA Sex: M : 1955 Age: 65y appears agitated. He is combative, hitting. Patient waiting for admit bed. --07:37 09/23/20 Maryellen Longoria R.N. 07:35 09/23/20. BP: 104/58. MAP: 73. HR: 70. RR: 18. O2 saturation: 100%. Temp: 98.2 F (temporal). Additional comments: Bipap. --07:37 09/23/20 Maryellen Longoria R.N. 08:28 09/23/20. BP: 127/58. MAP: 81. HR: 69. RR: 22. O2 saturation: 100%. --08:29 09/23/20 Maryellen Longoria R.N. Reassessment acuity: LEVEL 3. The patient is sleeping. ( Pt now resting peacefully, bipap settings are the same. Hospitalist came back to assess patient and made aware of all VS and FS; Most recent ABG pending, no other stat orders entered at this time. Mario from pharmacy made aware of 1st dose of antbx given in ER.). --08:29 09/23/20 Maryellen Longoria R.N. 08:03 09/23/20. BP: 102/59. MAP: 73. HR: 71. O2 saturation: 100%. --08:30 09/23/20 Maryellen Longoria R.N. 09:00 09/23/20. BP: 124/62. MAP: 82. HR: 70. RR: 27. O2 saturation: 100%. --09:01 09/23/20 Maryellen Longoria R.N. Reassessment acuity: LEVEL 3. The patient is sleeping. ( Jaylon from pharmacy came to complete med rec). --09:01 09/23/20 Maryellen Longoria R.N. 02:00 09/23/2020 IV Fluids NS via IV site #2 Discontinued: bag #2 completed. Total amount infused: 1000 mL. IV patency established. IV site checked: no pain, redness, or swelling. IV flushed thoroughly. --09:55 09/23/20 Maryellen Longoria R.N. late entry - 08:35 09/23/20. ( Pt resting quietly,currently not pulling at tubes/bipap, VSS; Erma RN from [facility] called and stated to bring pt now, howver he was incontinent of large amount of urine, needing complete bed change, washing, which was completed and pt tolerated well. PIV x2 intact, respiratory came to place pt on NRB for transport, pt status otherwise unchanged. Most recen t ABG results given to Hospitalist Cesar at 0835). --09:53 09/23/20 Maryellen Longoria R.N. Intake Output Urine output: 300 mL measured. --15:33 09/22/20 Kimi Marcelino R.N.DISPOSITION / DISCHARGE Departure time: late entry - 09:35 09/23/2020. Admitted to the Acute Inpatient Unit, Monitored (CCU 2). Transported via stretcher by nurse and respiratory therapist with monitor, IV and O2. Report was given to a nurse in person, at bedside and via visit overview. Report included information regarding patient's care, treatment, allergies and condition, current and abnormal vital signs and labs. Report inc luded treatment information regarding medications given or pending and home medications; type and amount of IV fluids and medications infusing. All questions were answered. Report was acknowledged. (Pat. Kristan MALDONADO). Bed obtained and ready. Patient's personal items include, heel protectors. --09:54 09/23/20 Maryellen Longoria 10 Clinical Report - Nurses [facility] Emergency Department [address] [place] [address] Phone #: ext- [phone] 09/22/2020 14:52 [id number] Sex: M : 1955 Age: 65y R.N. 09:30 09/23/20. BP: 113/65. MAP: 81. HR: 72. RR: 20. O2 saturation: 100% on room air. Temp: 98.2 F (temporal). FLACC pain scale: 0/10. Face: 0 - no particular expression or smile; legs: 0 - normal position or relaxed; activity: 0 - lying quietly, normal position, moves easily; cry: 0 - no cry (awake or asleep); consolability: 0 - content, relaxed. --09:54 09/23/20 Maryellen Longoria R.N. 09:35 09/23/2020 Site #[address] upon admission; patent, no pain and no signs of infection or infiltration. Good blood return p resent. Flushed with 10 mL saline; flushes easily. --09:55 3/10/21 Maryellen Longoria R.N. 09:35 09/23/2020 Site #[address] upon admission; patent, no pain and no signs of infection or infiltration. Good blood return present. Flushed with 10 mL saline; flushes easily. --09:55 09/23/20 Maryellen Longoria R.N. ( please see paper copy for all details of VS). --09:55 09/23/20 Maryellen Longoria R.N.Locked/Released at 09/23/2020 09:55 by Maryellen Longoria R.N. Name Value Range Interpretation Code Description Data Sanjuana rce(s) Supporting Document(s) ID Date Data Source [id number] 0001 09/22/2020 02:52:00 PM [facility] 1 Clinical Report - Physicians/Mid Levels [facility] Emergency Department [address] [place] [address] Phone #: ext- [phone] 09/22/2020 14:52 [id number] Sex: M : 1955 Age: 65y Time Seen: 15:05 09/22/2020. Arrived- By ambulance. Historian- patient and senior living nurse.HISTORY OF PRESENT ILLNESS Chief Complaint: CHANGED MENTAL STATUS. difficulty breathing and low blood pressure. This started yesterday Had narcotis stopped and is still present. The patient has been disoriented and confused and had trouble concentrating and is described as having decreased responsiveness. Has not "felt strange". Not unresponsive or post-ictal. The patient was not found unresponsive. custodial resident. No history of chronic dementia. No change in diabetic routine, alcohol recently, recent drug use or medication given prior to arrival. Dextro stick was not low prior to arrival. The patient has had weakness. No numbness or recent fall. No difficulty walking. The patient is usually alert, but disoriented to time. Similar symptoms previously. Recent medical care: The patient was seen recently in the office.REVIEW OF SYSTEMS No fever, headache, head injury, dizziness or chest pain. No difficulty breathing, cough, sputum production, blurred vision or sore throat. No abdominal pain, nausea, diarrhea, black stools or difficulty with urination. No skin rash, joint pain, vomiting, bloody stools or back pain.PAST HISTORY See nurses notes. Problems: Vomiting. Weakness. Heart Disease. Hemiplegia affecting R. Endocarditis. Glaucoma. Hypercholesterolemia. Hypomagnesemia. Hypoxia. Hyperglycemia. Hypertension. Emphysema. Congestive Heart Failure. COPD - Chronic Obstructive Pulmonary Disease. 2 Clinical Report - Physicians/Mid Levels [facility] Emergency Department [address] [place] [address] Phone #: ext- [phone] 09/22/2020 14:52 Patient: DIANA OLIVERA Sex: M : 1955 Age: 65yAtrial Fibrillation.Cellulitis.COVID-19.Diabetes Mellitus.Dyspnea.Degenerative Joint Disease.Dehydration.Sleep Apnea.Transient cerebral ischemic attack.Tremor.Rotator cuff syndrome.Sepsis (disorder).Ulcers on toes and legs.UTI - Urinary Tract Infection.Respiratory Failure.Narcotic Dependence.Neurological Disease.MRSA.Muscle Strain, Upper Extremity.Osteoarthritis of Finger Joint.Pneumonia.Renal Insufficiency.Osteomyel itis.Peripheral Vascular Disease.Additional Surgeries:Amputation Lower Extremity. (Left Great toe)C6 Corpectomy and Fusion c5-c6 w/ fibular strut graft .Cardiac catherization.Melanoma removal 1998.Rotator Cuff Surgery.Stent placement 2015.Medications:Salmeterol Xinafoate Inhalation 1 puff, 2x a day, last dose 09/22/2020 0700.MiraLax Oral, as needed.Latanoprost Ophthalmic, daily at bedtime.Glipizide Oral 10 mg, daily, last dose 09/22/2020 0900.Fish Oil Oral (Capsule 1000 mg) 1 capsule, daily, last dose 09/22/2020 0700.Diflucan Oral 150 mg, , x5 days, last dose 09/22/20 0700.Biotene Dry Mouth Gentle Mouth/Throat, as needed.Niacor Oral (Tablet 500 mg) 2 tablets, daily, last dose 09/22/2020 07.Lisinopril Oral 2.5 mg, daily, last dose 09/22/2020 07.Atorvastatin Calcium Oral 80 mg, daily at bedtime, last dose 09/21/2020 1900. 3 Clinical Report - Physicians/Mid Levels [facility] Emergency Department [address] [place] [address] Phone #: [phone] mqp- [phone] 09/22/2020 14:52 Patient: DIANA OLIVERA Sex: M : 1955 Age: 65y Serevent Diskus Inhalation (Aerosol Powder Breath Activated 50 mcg/dose) 1 puff, 2x a day after meals. Baclofen Oral (Tablet 10 mg) 1 tablet, 3x a day. Bisacodyl Rectal (Suppository 10 mg), as needed. Colace Oral 100 mg, 3x a day as needed. Latanoprost Ophthalmic (Solution 0.005 %) 1 drop, at bedtime. Milk of Magnesia Oral. Multivitamins Oral. oxyCODONE HCl Oral 5 mg, q6h as needed, last dose 09/20/2020 0845. Pantoprazole Sodium Oral 40 mg, daily, last dose 09/22/2020 0500. ProAir HFA Inhalation 2 puffs, as needed. amLODIPine Besylate Oral (Tablet 10 mg), daily, last dose 09/22/2020 07. Aspirin Oral (Tablet Delayed Release 81 mg) 1 tablet, daily, last dose 09/22/2020 07. DULoxetine HCl Oral (Capsule Delayed Release Particles 60 mg) 1 capsule, daily, last dose 09/22/2020 07. Eliquis Oral (Tablet 5 mg) 1 tablet, 2x a day, last dose 09/22/2020 0700. fentaNYL Transdermal 100 mcg/hr, every 3 days (held since 09/20/2020). Gabapentin Oral (Tablet 600 mg) 1 tablet, 3x a day, last dose 09/22/2020 0900. HumaLOG Subcutaneous 10 units, 3x a day, ?and sliding scale?, last dose 09/22/2020 1200. Levemir Subcutaneous 20 units, daily at bedtime, last dose 09/21/2020 1900. Metoprolol Succinate ER Oral (Tablet Extended Release 24 Hour 50 mg) 1 tablet, daily, last dose 09/22/2020 0700. Allergies: No Known Drug Allergy.SOCIAL HISTORY Never smoker. No alcohol use. No recent travel. Is a local resident. He lives alone. Has good social support. Resides in a LTC facility.FAMILY HISTORY No significant family medical history.ADDITIONAL NOTES The nursing notes have been reviewed with agreement regarding the chief complaint, HPI, ROS, PMH and patient medications and allergies.PHYSICAL EXAM Vital Signs: 09/22/2020 14:54 BP: 93/62. MAP: 72. HR: 72. RR: 16. O2 saturation: 100%. Temp: 98.7 F. Pain level now: 0/10. Have been reviewed as abnormal. Hypotensive. Heart rate normal. Respiratory rate normal. Temperature normal. Oxygen saturation normal. Appearance: No apparent distress. Speech is not slurred. The patient is not agitated. Head: Head atraumatic. Eyes: Pupils equal, round and reactive to light. ENT: Normal ENT inspection. Airway intact. Moist mucous membranes. Pharynx normal. Neck: Normal inspection. Neck supple. 4 Clinical Report - Physicians/Mid Levels [facility] Emergency Department [address] [place] [address] Phone #: ext- [phone] 09/22/2020 14:52 [id number] Sex: M : 1955 Age: 65y CVS: Normal heart rate and rhythm. Heart sounds normal. Pulses normal. Respiratory: No respiratory distress. Painless inspiration. Breath sounds normal. Abdomen: Soft and nontender. No organomegaly. Back: Normal inspection. Skin: Skin warm and dry. Normal skin color. No rash. Normal skin turgor. (healing ulceration behind left ear.). Extremities: No lower extremity edema. No calf tenderness. (large mechanical ulcer left lower calf.). Neuro: Altered mental status. The patient is disoriented. Alertness is decreased. Abnormal verbal response. Cranial nerves normal (as tested). He has generalized weakness. Abnormal reflexes.LABS, X-RAYS, AND EKG EKG: EKG time: 15:02 09/22/2020. Normal sinus rhythm. Rate: 73. Normal P waves. Normal VANE. Normal QRS complex. Decreased QRS voltage in the precordial and limb leads. Left axis deviation. Normal ST and T waves. The study has been interpreted contemporaneously by me. The EKG appears to be a good tracing. I agree with and confirm the computer reading of the EKG. Interpretation time: 15:05 09/22/2020. Chest X-ray: Normal Chest X-Ray (AP and portable). Normal heart size. Normal mediastinum. Normal soft tissues. No infiltrates present. No pneumothorax present. Laboratory Tests: Laboratory tests have been ordered, with results reviewed and considered in the medical decision making process. COVID-19 CAH: (ILEANA: 09/22/2020 16:45) ( MsgRcvd 09/22/2020 18:45) Final results Test Result Flag Units (Reference) COVID-19 NOT DETECTED COVID-19 REENTER NOT DETECTED { PROCEDURAL CONTROL VALID KIT LOT # [id number] 09/22/20.DW . KIT EXP DATE _21-29-65 09/22/20.DW . NORMAL RANGE IS NOT DETECTEDNEGATIVE RESULTS SHOULD BE TREATED PRESUMPTIVE AND, IF INCONSISTENT WITHCLINICAL SIGNS AND SYMPTOMS OR NECESSARY FOR PATIENT MANAGEMENT, SHOULD BETESTED WITH DIFFERENT AUTHORIZED OR CLEARED MOLECULAR TESTS. NEGATIVE RESULTSDO NOT PRECLUDE SARS-CoV-2 INFECTION AND SHOULD NOT BE USED THE SOLE BASISFOR PATIENT MANAGEMENT DECISIONS. ABG: (ILEANA: 09/22/2020 15:33) ( MsgRcvd 09/22/2020 16:29) Final results Test Result Flag Units (Reference) CHRISTIANA TEST POSITIVE A FiO2 ROOM AIR SITE RADIAL LT pH 7.36 (7.34 - 7.44) pCO2 47.7 H mm/HG (35.0 - 45.0) pO2 42.2 L mm/HG (75.0 - 100) HCO3 26.2 H meq/L (22.0 - 26.0) TCO2 27.7 H meq/L (23.0 - 27.0) BASE EXCESS 0.3 (-2.0 - 2.0) O2 SAT 84.7 L % (95.0 - 98.0) CBC w Diff: (ILEANA: 09/22/2020 15:40) ( MsgRcvd 09/22/2020 16:18) Final results Test Result Flag Units (Reference) CBC W/AUTOMATED DIFF COMPLETE BLOOD COUNT WBC 9.2 10/uL (4.2 - 11.0) 5 Clinical Report - Physicians/Mid [facility] Emergency Department [address] [place] [address] Phone #: [phone]- [phone] 09/22/2020 14:52 Patient: DIANA OLIVERA Sex: M : 1955 Age: 65y RBC 4.25 L 10/uL (4.50 - 6.30) HEMOGLOBIN 11.1 L g/dL (14.0 - 16.0) HEMATOCRIT 37.2 L % (41.0 - 51.0) MCV 87.5 fL (80.0 - 94.0) MCH 26.1 L pg (27.0 - 34.0) MCHC 29.8 L g/dL (31.0 - 36.0) RDW 19.9 H % (11.5 - 14.8) PLATELETS 194 10/uL (150 - 450) MPV 9.4 fL (7.4 - 10.4) NEUT 77.9 % (37.0 - 80.0) LYMPH 12.2 L % (25.0 - 40.0) MONO 8.6 H % (3.0 - 8.0) EOS 0.4 % (0.0 - 7.0) BASO 0.5 % (0.0 - 2.0) %IG 0.4 H % (0.0 - 0.0) %NRBC 0.0 % (0.0 - 0.0) #NEUT 7.17 H 10/uL (2.00 - 6.90) #LYMPH 1.12 10/uL (0.60 - 3.40) #MONO 0.79 10/uL (0.00 - 0.90) #EOS 0.04 10/uL (0.00 - 0.70) #BASO 0.05 10/uL (0.00 - 0.20) #IG 0.04 10/uL (0.00 - 0.10) #NRBC 0.00 10/uL (0.00 - 0.00) MANUAL DIFF NOT INDICATED RBC MORPH NOT INDICATEDCMP: (ILEANA: 09/22/2020 15:40) ( MsgRcvd 09/22/2020 16:46) Final results Test Result Flag Units (Reference) COMPREHENSIVE METABOLIC PANEL COMPREHENSIVE METABOLIC PANEL SODIUM 142 mEq/L (134 - 153) POTASSIUM 4.8 mEq/L (3.6 - 5.0) CHLORIDE 107 mEq/L (98 - 107) CO2 27 MEQ/L (22 - 30) GLUCOSE 300 H MG/DL (70 - 99) BUN 44 H MG/DL (7 - 21) CREATININE 0.7 MG/DL (0.7 - 1.5) BUN/CREAT 63 H (8 - 27) TOTAL PROTEIN 5.0 L G/DL (6.3 - 8.2) ALBUMIN 3.0 L G/DL (3.9 - 5.0) GLOBULIN 2.0 L GM/DL (2.4 - 3.2) A/G RATIO 1.5 (0.8 - 2.0) CALCIUM 9.3 MG/DL (8.4 - 10.2) TOTAL BILI <0.7 MG/DL (0.2 - 1.3) ALKALINE PHOS 65 U/L (38 - 126) SGOT/AST 197 H U/L (5 - 40) SGPT/ALT 382 H U/L (7 - 56) ANION GAP 8.0 mmol/L (8.0 - 16.0) AGE 65 yrs NON-AA GFR >60 mL/min AFR AMER GFR >60 mL/min Male GFR Interprentation 20-49 yrs >60 mL/min Cptbev79-91 yrs >56 mL/min Normal 60-69 yrs >49 mL/min Normal 70-79yrs>42 mL/min Normal 80 and above >35 mL/min Normal Female GFRInterpretation 20-39 yrs >60 mL/min Normal 40-49 yrs >58 mL/minNormal 50- 59 yrs >51 mL/min Normal 60-69 yrs >45 mL/min Cnvmxi73-89 yrs >39 mL/min Normal 80 and above >32 mL/min NormalAmmonia Level: (ILEANA: 09/22/2020 15:40) ( MsgRcvd 09/22/2020 16:45) Final results 6 Clinical Report - Physicians/Mid Levels [facility] Emergency Department [address] [place] [address] Phone #: ext- [phone] 09/22/2020 14:52 Patient: DIANA OLIVERA Sex: M : 1955 Age: 65y Test Result Flag Units (Reference) AMMONIA 49.0 UG/DL (27.2 - 102)D-Dimer: (ILEANA: 09/22/2020 15:40) ( MsgRcvd 09/22/2020 16:38) Final results Test Result Flag Units (Reference) D-DIMER QUANT 0.74 H ug/mL (0.27 - 0.50)PT/PTT: (ILEANA: 09/22/2020 15:40) ( [facility] 09/22/2020 16:38) Final results Test Result Flag Units (Reference) PROTIME 27.2 H SECONDS (11.0 - 15.5) INR 2.39 H (0.93 - 1.23) PTT 49.0 H SECONDS (24.8 - 36.7) \\BLDo\\INR INTERPRETATION\\BLDx\\ Therapeutic range for Coumadin andrelated oral anticoagulants. -International Normalized Ratio (INR): 2.0 - 3.0 for VenousThrombosis, Pulmonary Embolus, Tissue heart valves, Acute GA Atrial Fibrillation, Valvular heart diseaseand recurrent Systemic Embolism. -International Normalized Ratio (INR): 2.5 - 3.5 forMechanical Prosthetic valve.Troponin-T: (ILEANA: 09/22/2020 15:40) ( [facility] 09/22/2020 16:46) Final results Test Result Flag Units (Reference) TROPONIN T 0.03 NG/ML (0.00 - 0.10) TROPONIN T0.1 ng/ml Recommended as the clinical threshold value forTroponin T.Urinalysis: (ILEANA: 09/22/2020 17:25) ( [facility] 09/22/2020 18:19) Final results Test Result Flag Units (Reference) U RINALYSIS URINALYSIS SOURCE R COLOR yellow (NORMAL: Yello CLARITY clear (NORMAL: Clear SPEC GRAVITY 1.020 (1.001 - 1.030 pH 5 (5 - 9) GLUCOSE 250 A (NORMAL: Negat BILIRUBIN NEG (NORMAL: Negat KETONE NEG (NORMAL: Negat PROTEIN 30 (NORMAL: Negat NITRITE NEG (NORMAL: Negat BLOOD NEG (NORMAL: Negat LEUK EST 25 (NORMAL: Negat UROBILINOGEN NOR (less than 1.0 MICROSCOPIC See Below WBC 7 - 10 A (NORMAL: NONE RBC 1 - 3 (NORMAL: NONE EPITHELIAL FEW (NORMAL: NONE BACTERIA Trace (NORMAL: NONE MUCOUS Trace (NORMAL: NONE YEAST Few ALactic Acid: (ILEANA: 09/22/2020 15:40) ( [facility] 09/22/2020 16:25) Final results Test Result Flag Units (Reference) LACTIC ACID 1.9 MMOL/L (0.2 - 2.2)Chest 1 View: (ILEANA: 09/22/2020 15:11) ( [facility] 09/22/2020 16:30) In Progress 7 Clinical Report - Physicians/Mid Levels [facility] Emergency Department [address] [place] [address] Phone #: ext- [phone] 09/22/2020 14:52 Patient: DIANA OLIVERA Sex: M : 1955 Age: 65y CHEST 1 VIEW Reason(s): Shortness of Breath TRANSPORTATION: P IV? O2? Oxygen?(No) Room: ED ABG: (ILEANA: 09/22/2020 15:09) ( [facility] 09/22/2020 15:13) Canceled.PROGRESS AND PROCEDURES Course of Care: 15:48 Sep 22 2020. (Patient's history obtained from custodial and EMT's. Exam completed. Treatment plan discussed with patient . Records reviewed. Labs, EKG and chest x-ray ordered. IV fluids started.). (Significant dehydration with hypotension. IV saline start ed.). 18:14 Sep 22 2020. (Spoke with hospitalist feels patient needs higher level of care.). ED care transferred. Case discussed with Dr Marrufo. Assumed care. Brief hx: sent from [place] for hypotension hypoxia and altered mental status. Pending items: lab, CT / MRI results (pending) and xray results. Tentative impression: Dehydration, Hypoxia/ altered mental status. Expected disposition: transfer. Spouse counseled via phone regarding the patient's serious condition, test results, diagnosis, need for transfer and risks and benefits of procedures. Spouse agrees with plan of care. 18:13 Sep 22 2020. Old medical records ordered. Disposition: Condition: serious.CLINICAL IMPRESSION Acute mental status change with lethargy. Moderate dehydration. Hypoxia.(Electronically signed by Johnny Yuen, Physician 09/22/2020 19:02) Disposition decision: 00:22 09/23/2020. 8 Clinical Report - Physicians/Mid Levels [facility] Emergency Department [address] [place] [address] Phone #: ext- [phone] 09/22/2020 14:52 Patient: DIANA OLIVERA Sex: M : 1955 Age: 65yLABS, X-RAYS, AND EKG Laboratory Tests: CT Head W/O Cont: (ILEANA: 09/22/2020 18:16) ( MsgRcvd 09/22/2020 23:19) In Progress CT HEAD W/O CONTRAST Reason(s): Altered Sense of Awareness TRANSPORTATION: S IV? O2? Oxygen?(Yes) Room: E Exam CT HEAD W/O CONTRAST [address] [place]: [phone] FAX: [phone] Name .................. : JAROD Ross Acct Number.................. : [id number] ROOM. ................. : TR-03 MR Number ................... : [id number] Stay type ............. : E/R Discharge Date......... ... : Admit Date ......... : 09/22/20 Admit Phys .................... : WILFRID BASILIO Date of ....... : 1955 Family Phys ................... : ADY Phone .................. : [phone] Age . ............................... : 65 Film# .................. .:[id number] Sex ................................. : M Unsigned transcriptions are preliminary reports and do not represent a medical or legal document CT HEAD W/O CONTRAST [id number] COMPLETE:09/22/20 20:00 BEM [id number] Reason(s): Altered Sense of Awareness CT OF THE HEAD WITHOUT CONTRAST: INDICATION: Altered sense of awareness. FINDINGS: No intra-axial or extra-axial collections of fluid. Ventricles and sulci unremarkable. No midline shift or mass effect. Visualized paranasal sinuses and mastoid air cells unremarkable. IMPRESSION: No acute intracranial process. While performing the above CT examination, radiation dose reduction was accomplished utilizing automated exposure control, adjusting of the mA and kV based on the patient's body size and/or the use of imperative reconstructive techniques. CT d ose: 854.5 mGycm Electronically Reviewed and Signed By DCTNAMLeonardo , SIGNDATE, HENRIQUE Transcribe Initials: LEI , Transcribe Date: 09/22/20 23:18, Dictation Date: <<REPDIST>> 9 Clinical Report - Physicians/Mid Levels [facility] Emergency Department [address] [place] [address] Phone #: ext- [phone] 09/22/2020 14:52 Patient: DIANA OLIVERA Sex: M : 1955 Age: 65y Page 1 of 1CT CTA CHEST NON-CORONARY W CON INC PP: (ILEANA: 09/22/2020 17:33) ( MsgRcvd 09/22/2020 23:33) InProgressCT CTA CHEST NON-CORONARY W CON INC PPReason(s): positive D-Dimer hypoxiaTRANSPORTATION: S IV? IV?(Yes) O2? Oxygen?(Yes) R Test Result Flag Units (Reference) CT CTA CHEST NON-[place] [address] PHONE: [phone] FAX: [phone] -- Name .................. : JAROD Ross Acct Number.................. : [id number] ROOM. ................. : TR-03 MR Number ................... : [id number] Stay type ............. : E/R Discharge Date......... ... : Admit Date ......... : 09/22/20 Admit Phys .................... : WILFRID BASILIO Date of ....... : 1955 Family Phys ................... : ADY Phone .................. : [phone] Age ................................ : 65 Film# .................. .:[id number] Sex ........ ......................... : M -- Unsigned transcriptions are preliminary reports and do not represent a medical or legal document CT CTA CHEST NON-CORONARY [place] [id number] COMPLETE:09/22/20 19:18 [facility] 5938 Reason(s): positive D-Dimer hypoxia -- -- -- -- CTA OF THE CHEST WITH CONTRAST: -- INDICATION: Elevated D-dimer and hypoxia. -- -- FINDINGS: The neck base is clear. -- There is a background of moderate chronic interstitial changes. In the right upper lobe, there is a moderate infiltrate. -- The heart is normal in size. Severe coronary artery calcifications are noted. There is mild to moderate reactive lymphadenopathy in the right hilum measuring up to 3.0 x 1.8 cm. -- No pulmonary embolism is visualized. -- The visualized upper abdomen demonstrates high density material in the dependent portion of the gallbladder, likely sludge or small stones. -- No acute osseous abnormality. -- -- IMPRESSION: 1. No pulmonary embolism. 2. Moderate right upper lobe pneumonia. 3. Gallbladder sludge or gallstones, partially visualized. If clinically indicated, this could be further evaluated with nonemergent right upper quadrant ultrasound. -- While performing the above CT examination, radiation dose reduction was accomplished utilizing automated exposure control, adjusting of the mA and kV based on the patient's body size and/or the use of imperative reconstructive techniques. -- 10 Clinical Report - Physicians/Mid Levels [facility] Emergency Department [address] [place] [address] Phone #: ext- [phone] 09/22/2020 14:52 Patient: DIANA OLIVERA Sex: M : 1955 Age: 65y CT dose: 616.7 mGycm -- -- Page 1 of 2 [facility] [address] [place] [address] PHONE: [phone] FAX: [phone] -- Name .................. : JAROD Ross Acct Number.................. : [id number] ROOM. ................. : [facility] MR Number ................... : [id number] Stay type ............. : E/R Discharge Date......... ... : Admit Date ......... : 09/22/20 Admit Phys .................... : WILFRID BASILIO Date of ....... : 1955 Family Phys ................... : SHYAMDANAE Phone .................. : [phone] Age ................................ : 65 Film# .................. .:[id number] Sex ................................. : M -- Unsigned transcriptions are preliminary reports and do not represent a medical or legal document CT CTA CHEST NON-CORONARY [place]rade [address] COMPLETE:09/22/20 19:18 [facility] 5938 Reason(s): positive D-Dimer hypoxia -- -- -- -- Contrast agent in mL: 75 Isovue 370 -- Method of administration: Intravenous -- -- Electronically Reviewed and Signed By ALISON GONZALESDAHENRIQUE DOWNS -- Transcribe Initials: LEI , Transcribe Date: 09/22/20 23:30, Dictation Date: -- -- <<REPDIST>> -- -- -- -- Page 2 of 2 --COVID-19 CAH: (ILEANA: 09/22/2020 16:45) ( MsgRcvd 09/22/2020 18:45) Final results Test Result Flag Units (Reference) COVID-19 NOT DETECTED COVID-19 REENTER NOT DETECTED { PROCEDURAL CONTROL VALID KIT LOT # [id number] 09/22/20.4.DW . KIT EXP DATE _89-88-22 79/09/21.4.DW . NORMAL RANGE IS NOT DETECTEDNEGATIVE RESULTS SHOULD BE TREATEDAS PRESUMPTIVE AND, IF INCONSISTENT WITHCLINICAL SIGNS AND SYMPTOMS OR NECESSARY FOR PATIENT MANAGEME NT, SHOULDBETESTED WITH DIFFERENT AUTHORIZED OR CLEARED MOLECULAR TESTS. NEGATIVE RESULTSDO NOT PRECLUDE [id number] AND SHOULD NOT BE USED THE SOLE BASISFOR PATIENT MANAGEMENT DECISIONS.ABG: (ILEANA: 09/22/2020 15:33) ( MsgRcvd 09/22/2020 16:29) Final results Test Result Flag Units (Reference) CHRISTIANA TEST POSITIVE A FiO2 ROOM AIR SITE RADIAL LT 11 Clinical Report - Physicians/Mid Levels [facility] Emergency Department [address] [place] [address] Phone #: ext- [phone] 09/22/2020 14:52 Patient: DIANA OLIVERA Sex: M : 1955 Age: 65y pH 7.36 (7.34 - 7.44) pCO2 47.7 H mm/HG (35.0 - 45.0) pO2 42.2 L mm/HG (75.0 - 100) HCO3 26.2 H meq/L (22.0 - 26.0) TCO2 27.7 H meq/L (23.0 - 27.0) BASE EXCESS 0.3 (-2.0 - 2.0) O2 SAT 84.7 L % (95.0 - 98.0)CBC w Diff: (ILEANA: 09/22/2020 15:40) ( MsgRcvd 09/22/2020 16:18) Final results Test Result Flag Units (Reference) CBC W/AUTOMATED DIFF COMPLETE BLOOD COUNT WBC 9.2 10/uL (4.2 - 11.0) RBC 4.25 L 10/uL (4.50 - 6.30) HEMOGLOBIN 11.1 L g/dL (14.0 - 16.0) HEMATOCRIT 37.2 L % (41.0 - 51.0) MCV 87.5 fL (80.0 - 94.0) MCH 26.1 L pg (27.0 - 34.0) MCHC 29.8 L g/dL (31.0 - 36.0) RDW 19.9 H % (11.5 - 14.8) PLATELETS 194 10/uL (150 - 450) MPV 9.4 fL (7.4 - 10.4) NEUT 77.9 % (37.0 - 80.0) LYMPH 12.2 L % (25.0 - 40.0) MONO 8.6 H % (3.0 - 8.0) EOS 0.4 % (0.0 - 7.0) BASO 0.5 % (0.0 - 2.0) %IG 0.4 H % (0.0 - 0.0) %NRBC 0.0 % (0.0 - 0.0) #NEUT 7.17 H 10/uL (2.00 - 6.90) #LYMPH 1.12 10/uL (0.60 - 3.40) #MONO 0.79 10/uL (0.00 - 0.90) #EOS 0.04 10/uL (0.00 - 0.70) #BASO 0.05 10/uL (0.00 - 0.20) #IG 0.04 10/uL (0.00 - 0.10) #NRBC 0.00 10/uL (0.00 - 0.00) MANUAL DIFF NOT INDICATED RBC MORPH NOT INDICATEDCMP: (ILEANA: 09/22/2020 15:40) ( MsgRcvd 09/22/2020 16:46) Final results Test Result Flag Units (Reference) COMPREHENSIVE METABOLIC PANEL COMPREHENSIVE METABOLIC PANEL SODIUM 142 mEq/L (134 - 153) POTASSIUM 4.8 mEq/L (3.6 - 5.0) CHLORIDE 107 mEq/L (98 - 107) CO2 27 MEQ/L (22 - 30) GLUCOSE 300 H MG/DL (70 - 99) BUN 44 H MG/DL (7 - 21) CREATININE 0.7 MG/DL (0.7 - 1.5) BUN/CREAT 63 H (8 - 27) TOTAL PROTEIN 5.0 L G/DL (6.3 - 8.2) ALBUMIN 3.0 L G/DL (3.9 - 5.0) GLOBULIN 2.0 L GM/DL (2.4 - 3.2) A/G RATIO 1.5 (0.8 - 2.0) CALCIUM 9.3 MG/DL (8.4 - 10.2) TOTAL BILI <0.7 MG/DL (0.2 - 1.3) ALKALINE PHOS 65 U/L (38 - 126) 12 Clinical Report - Physicians/Mid Levels [facility] Emergency Department [address] [place] [address] Phone #: ext- [phone] 09/22/2020 14:52 Patient: DIANA OLIVERA Sex: M : 1955 Age: 65y SGOT/AST 197 H U/L (5 - 40) SGPT/ALT 382 H U/L (7 - 56) ANION GAP 8.0 mmol/L (8.0 - 16.0) AGE 65 yrs NON-AA GFR >60 mL/min AFR AMER GFR >60 mL/min Male GFR Interprentation 20-49 yrs >60 mL/min Ikbhoc14-38 yrs >56 mL/min Normal 60-69 yrs >49 mL/min Normal 70-79yrs>42 mL/min Normal 80 and above >35 mL/min Normal Female GFRInterpretation 20-39 yrs >60 mL/min Normal 40-49 yrs >58 mL/minNormal 50-59 yrs >51 mL/min Normal 60-69 yrs >45 mL/min Etrtak66-10 yrs >39 mL/min Normal 80 and above >32 mL/min NormalAmmonia Level: (ILEANA: 09/22/2020 15:40) ( [facility] 09/22/2020 16:45) Final results Test Result Flag Units (Reference) AMMONIA 49.0 UG/DL (27.2 - 102)D-Dimer: (ILEANA: 09/22/2020 15:40) ( [facility] 09/22/2020 16: 38) Final results Test Result Flag Units (Reference) D-DIMER QUANT 0.74 H ug/mL (0.27 - 0.50)PT/PTT: (ILEANA: 09/22/2020 15:40) ( [facility] 09/22/2020 16:38) Final results Test Result Flag Units (Reference) PROTIME 27.2 H SECONDS (11.0 - 15.5) INR 2.39 H (0.93 - 1.23) PTT 49.0 H SECONDS (24.8 - 36.7) \\BLDo\\INR INTERPRETATION\\BLDx\\ Therapeutic range for Coumadin andrelated oral anticoagulants. -International Normalized Ratio (INR): 2.0 - 3.0 for VenousThrombosis, Pulmonary Embolus, Tissue heart valves, Acute GA Atrial Fibrillation, Valvular heart diseaseand recurrent Systemic Embolism. -International Normalized Ratio (INR): 2.5 - 3.5 forMechanical Prosthetic valve.Troponin-T: (ILEANA: 09/22/2020 15:40) ( [facility] 09/22/2020 16:46) Final results Test Result Flag Units (Reference) TROPONIN T 0.03 NG/ML (0.00 - 0.10) TROPONIN T0.1 ng/ml Recommended as the clinical threshold value forTroponin T.Urinalysis: (ILEANA: 09/22/2020 17:25) ( [facility] 09/22/2020 18:19) Final results Test Result Flag Units (Reference) URINALYSIS URINALYSIS SOURCE R COLOR yellow (NORMAL: Yello CLARITY clear (NORMAL: Clear SPEC GRAVITY 1.020 (1.001 - 1.030 pH 5 (5 - 9) GLUCOSE 250 A (NORMAL: Negat BILIRUBIN NEG (NORMAL: Negat KETONE NEG (NORMAL: Negat PROTEIN 30 (NORMAL: Negat NITRITE NEG (NORMAL: Negat BLOOD NEG (NORMAL: Negat LEUK EST 25 (NORMAL: Negat 13 Clinical Report - Physicians/Mid Levels [facility] Emergency Department [address] [place] [address] Phone #: ext- [phone] 09/22/2020 14:52 Patient: DIANA OLIVERA Sex: M : 1955 Age: 65y UROBILINOGEN NOR (less than 1.0 MICROSCOPIC See Below WBC 7 - 10 A (NORMAL: NONE RBC 1 - 3 (NORMAL: NONE EPITHELIAL FEW (NORMAL: NONE BACTERIA Trace (NORM AL: NONE MUCOUS Trace (NORMAL: NONE YEAST Few A Lactic Acid: (ILEANA: 09/22/2020 15:40) ( [facility] 09/22/2020 16:25) Final results Test Result Flag Units (Reference) LACTIC ACID 1.9 MMOL/L (0.2 - 2.2) Chest 1 View: (ILEANA: 09/22/2020 15:11) ( MsgRcvd 09/22/2020 16:30) In Progress CHEST 1 VIEW Reason(s): Shortness of Breath TRANSPORTATION: P IV? O2? Oxygen?(No) Room: ED ABG: (ILEANA: 09/22/2020 15:09) ( MsgRcvd 09/22/2020 15:13) Canceled.PROGRESS AND PROCEDURES Course of Care: Pt is a 65 year old male who I received signout from Dr. Yuen. Pt was brought to the ED for ams. on evaluation, he is sleeping. he is arousable but quickly goes back to sleep. His labs show no significant abnormalities. CT head shows nad. CTa shows a resolved rul pneumonia. he is on doxycycline. reportedly this pneumonia has been there for months. Per Dr. Yuen, the hospitalist and Dr. Grullon states that pt should be transferred. once all studies were back, I did give Doc the hospitalist a courtesy call. He restated that pt would be better served at another facility due to his history. I called [facility] and spoke to Dr. Piedra. I discussed with him that his ams is probably multi-factorial but most likely due to over medication of his narcotics from fentanyl patch of 100mcg and his every [address] Piedra felt that pt should be admitted here to [facility] and he would be happy to take the patient if the patient decompensated. I called Doc back. He spoke to his medical record retrieval specialist. He called me back stating he would take the patient and admit. Pt would probably be down in the ED for sometime prior to going to the floor. Pt did well overnight. A repeat abg done by the hospitalist showed increased PCO2. Pt clearly has severe sleep apnea. he was started on bipap. In the morning, he was awake stating he wanted to go home and yelling. I did call Doc the hospitalist about htis at 7am. He is aware. Critical care performed (60 minutes). Time is exclusive of separately billable procedures. Time includes: direct patient care, patient reassessment, interpretation of data (laboratory data and chest xrays) and medical consultation- see progress notes. Procedures included in critical care time: peripheral IV placement. Disposition: Observation in the Acute Inpatient Unit, Monitored. Condition: stable.CLINICAL IMPRESSION Encephalopathy. 14 Clinical Report - Physicians/Mid Levels [facility] Emergency Department [address] [place] [address] Phone #: ext- [phone] 09/22/2020 14:52 Patient: DIANA OLIVERA Sex: M : 1955 Age: 65y(Electronically signed by Susan Marrufo MD 09/23/2020 07:19) Name Value Range Interpretation Code Description Data Sanjuana rce(s) Supporting Document(s) ID Date Data Source [id number] 09/23/2020 08:06:00 AM EST [facility] Name Value Range Interpretation Code Description Data Sanjuana rce(s) Supporting Document(s) CHRISTIANA TEST POSITIVE A [facility]% O2 pH of Arterial blood 7.30 7.34 - 7.44 L [facility] Carbon dioxide [Partial pressure] in Blood 54.8 mm/HG 35.0 - 45.0 H [facility] Oxygen [Partial pressure] in Blood 113.7 mm/HG 75.0 - 100 H [facility] Bicarbonate [Moles/volume] in Blood 26.3 meq/L 22.0 - 26.0 H [facility] TCO2 28.0 meq/L 23.0 - 27.0 H [facility] Base excess in Blood by calculation -0.8 -2.0 - 2.0 [facility] O2 SAT 97.8 % 95.0 - 98.0 [facility] ital ID Date Data Source [id number] 09/23/2020 06:11:00 AM [facility] Name Value Range Interpretation Code Description Data Sanjuana rce(s) Supporting Document(s) Thyrotropin [Units/volume] in Serum or Plasma by Detec tion limit <= 0.05 mIU/L 0.73 uIU/mL 0.47 - 5.01 [facility] ID Date Data Source [id number] 09/23/2020 06:07:00 AM [facility] Name Value Range Interpretation Code Description Data Sanjuana rce(s) Supporting Document(s) Phosphate [Mass/volume] in Serum or Plasma 2.4 MG/DL 2.5 - 4.5 L [facility] ID Date Data Source [id number] 09/23/2020 06:07:00 AM [facility] Name Value Range Interpretation Code Description Data Sanjuana rce(s) Supporting Document(s) Magnesium [Mass/volume] in Serum or Plasma 1.4 MG/DL 1.7 - 2.2 L [facility] ID Date Data Source [id number] 09/23/2020 06:06:00 AM [facility] Name Value Range Interpretation Code Description Data Sanjuana rce(s) Supporting Document(s) COMPREHENSIVE METABOLIC PANEL [facility] COMPREHENSIVE METABOLIC PANEL Sodium [Moles/volume] in Serum or Plasma 144 mEq/L 134 - 153 [facility] Potassium [Moles/volume] in Serum or Plasma 4.6 mEq/L 3.6 - 5.0 [facility] Chloride [Moles/volume] in Serum or Plasma 110 mEq/L 98 - 107 H [facility] Carbon dioxide, total [Moles/volume] in Serum or Plasma 28 MEQ/L 22 - 30 [facility] Glucose [Mass/volume] in Serum or Plasma 263 MG/DL 70 - 99 H [facility] BUN 31 MG/DL 7 - 21 H [facility] Creatinine [Mass/volume] in Serum or Plasma 0.5 MG/DL 0.7 - 1.5 L [facility] BUN/CREAT 62 8 - 27 H [facility] Protein [Mass/volume] in Serum or Plasma 4.8 G/DL 6.3 - 8.2 L [facility] Albumin [Mass/volume] in Serum or Plasma 2.9 G/DL 3.9 - 5.0 L [facility] Globulin [Mass/volume] in Serum by calculation 1.9 GM/DL 2.4 - 3.2 L [facility] A/G RATIO 1.5 0.8 - 2.0 [facility] Calcium [Mass/volume] in Serum or Plasma 8.6 MG/DL 8.4 - 10.2 [facility] Bilirubin.total [Mass/volume] in Serum or Plasma <0.7 MG/DL 0.2 - 1.3 [facility] Alkaline phosphatase [Enzymatic activity/volume] in Serum or Plasma 58 U/L 38 - 126 [facility] Aspartate aminotransferase [Enzymatic activity/volume] in Serum or Plasma 157 U/L 5 - 40 H [facility] Alanine aminotransferase [Enzymatic activity/volume] in Seru m or Plasma 315 U/L 7 - 56 H [facility] Anion gap 3 in Serum or Plasma 6.0 mmol/L 8.0 - 16.0 L [facility] AGE 65 yrs [facility] al NON-AA GFR >60 mL/min [facility] ital AFR AMER GFR >60 mL/min [facility] Male GFR In terprentation 20-49 yrs >60 mL/min Normal 50-59 yrs >56 mL/min Normal 60-69 yrs >49 mL/min Normal 70-79yrs >42 mL/min Normal 80 and above >35 mL/min Normal Female GFR Interpretation 20-39 yrs >60 mL/min Normal 40-49 yrs >58 mL/min Normal 50-59 yrs >51 mL/min Normal 60-69 yrs >45 mL/min Normal 70-79 yrs >39 mL/min Normal 80 and above >32 mL/min Normal ID Date Data Source [id number] 09/23/2020 06:02:00 AM [facility] Name Value Range Interpretation Code Description Data Sanjuana rce(s) Supporting Document(s) Ammonia [Mass/volume] in Plasma 36.0 UG/DL 27.2 - 102 [facility] ID Date Data Source [id number] 09/23/2020 05:57:00 AM [facility] Name Value Range Interpretation Code Description Data Sanjuana rce(s) Supporting Document(s) Prothrombin time (PT) 24.5 SECONDS 11.0 - 15.5 H [facility] INR in Platelet poor plasma by Coagulation assay 2.09 0.93 - 1. 23 H [facility] \\BLDo\\INR INTERPRETATION\\BLDx\\ Therapeutic range for Coumadin and related oral anticoagulants. - International Normalized Ratio (INR): 2.0 - 3.0 for Venous Thrombosis, Pulmonary Embolus, Tissue heart valves, Acute GA, Atrial Fibrillation, Valvular heart disease and recurrent Systemic Embolism. -International Normalized Ratio (INR): 2.5 - 3.5 for Mechanical Prosthetic valve. ID Date Data Source [id number] 09/23/2020 05:47:00 AM [facility] Name Value Range Interpretation Code Description Data Sanjuana rce(s) Supporting Document(s) Lactate [Moles/volume] in Serum or Plasma 1.3 MMOL/L 0.2 - 2.2 [facility] ID Date Data Source [id number] 09/23/2020 05:46:00 AM [facility] Name Value Range Interpretation Code Description Data Sanjuana rce(s) Supporting Document(s) CBC W/AUTOMATED DIFF [facility] COMPLETE BLOOD COUNT Leukocytes [#/volume] in Blood by Automated count 8.7 10^3/uL 4.2 - 1 1.0 [facility] Erythrocytes [#/volume] in Blood by Automated count 4.01 10^6/uL 4. 50 - 6.30 L [facility] Hemoglobin [Mass/volume] in Blood 10.6 g/dL 14.0 - 16.0 L [facility] Hematocrit [Volume Fraction] of Blood by Automated count 35.2 % 4 1.0 - 51.0 L [facility] Erythrocyte mean corpuscular volume [Entitic volume] by Auto mated count 87.8 fL 80.0 - 94.0 [facility] Erythrocyte mean corpuscular hemoglobin [Entitic mass] by Automated count 26.4 pg 27.0 - 34.0 L [facility] Erythrocyte mean corpuscular hemoglobin concentration [Mass/volume] by Automated count 30.1 g/dL 31.0 - 36.0 L [facility] Erythrocyte distribution width [Ratio] by Automated count 19.9 % 11.5 - 14.8 H [facility] Platelets [#/volume] in Blood by Automated count 184 10^3/uL 150 - 45 0 [facility] Platelet mean volume [Entitic volume] in Blood by Automated count 9.5 fL 7.4 - 10.4 [facility] Neutrophils/100 leukocytes in Blood by Automated count 72.0 % 37. 0 - 80.0 [facility] Lymphocytes/100 leukocytes in Blood by Manual count 17.3 % 25.0 - 40.0 L [facility] Monocytes/100 leukocytes in Blood by Automated count 9.1 % 3.0 - 8.0 H [facility] Eosinophils/100 leukocytes in Blood by Automated count 0.9 % 0.0 - 7.0 [facility] Basophils/100 leukocytes in Blood by Automated count 0.5 % 0.0 - 2.0 [facility] %IG 0.2 % 0.0 - 0.0 H [facility] %NRBC 0.0 % 0.0 - 0.0 [facility] Neutrophils [#/volume] in Blood by Automated count 6.22 10^3/uL 2.00 - 6.90 [facility] Lymphocytes [#/volume] in Blood by Automated count 1.50 10^3/uL 0.60 - 3.40 [facility] Monocytes [#/volume] in Blood by Automated count 0.79 10^3/uL 0.00 - 0.90 [facility] Eosinophils [#/volume] in Blood by Automated count 0.08 10^3/uL 0.00 - 0.70 [facility] Basophils [#/volume] in Blood by Automated count 0.04 10^3/uL 0.00 - 0.20 [facility] #IG 0.02 10^3/uL 0.00 - 0.10 [facility]ital #NRBC 0.00 10^3/uL 0.00 - 0.00 [facility]spital MANUAL DIFF NOT INDICATED [facility] RBC MORPH NOT INDICATED [facility] spital ID Date Data Source [id number] 09/23/2020 02:31:00 AM EST [facility] [address] [place] [address] ---------NAME--------- NUMBER SEX AGE ADMIT DISC. XRAY# F/C TYPE JAROD Ross [id number] M 65 09/22/20 [id number] O/P DATE OF : 1955 M/R# [id number] #: [id number] LOCATION: TRANSCRIBED: 09/23/20 2:31 IF US ABD LIMITED [id number] COMPLETED:09/23/20 1:29 ADB 5948 {REASON FOR ABDOMEN: RIGHT UPPER QUAD PAIN PHYSICIAN: RADHA PRATHER == R A D I O L O G Y R E P O R T PATIENT HISTORY:US ECHO B ABD LIMITEDEXAM: US Abdomen, Right Upper Quadrant.CLINICAL HISTORY:US ECHO B ABD LIMITEDTECHNIQUE: Right upper quadrant sonography performed with image documentation.COMPARISON:None provided.FINDINGS:LIVER:There is likely hepatic steatosis. The liver is without definite focalabnormality.GALLBLADDER:Some sludge or stones are noted within the gallbladder at thegallbladder neck. There is no definite gallbladder wall thickening orsurrounding free fluid.COMMON BILE DUCT: No dilation.PANCREAS: The visualized pancreas appears within normal limits. The distalpancreas is obscured by bowel gas.RIGHT KIDNEY: Unremarkable. Normal renal contours. No renal mass or calculus. Nohydronephrosis.MISCELLANEOUS:The examination is limited by tell gas and patient motion.IMPRESSION:Likely sludge or stones within the gallbladder.Electronically Signed By:Lino Arce MD , RadiologistDate/Time: 09/23/20 02:31 Name Value Range Interpretation Code Description Data Sanjuana rce(s) Supporting Document(s) ID Date Data Source [id number] 09/23/2020 01:46:00 AM EST [facility] Name Value Range Interpretation Code Description Data Sanjuana rce(s) Supporting Document(s) CHRISTIANA TEST POSITIVE A [facility] FiO2 2LNC [facility] S[facility] RADIAL RT [facility] pH of Arterial blood 7.28 7.34 - 7.[address] [facility] Carbon dioxide [Partial pressure] in Blood 64.6 mm/HG 35.0 - 45.0 H [facility] Oxygen [Partial pressure] in Blood 93.0 mm/HG 75.0 - 100 [facility] Bicarbonate [Moles/volume] in Blood 29.6 meq/L 22.0 - 26.0 H [facility] TCO2 31.6 meq/L 23.0 - 27.0 H [facility] Base excess in Blood by calculation 1.7 -2.0 - 2.0 [facility] O2 SAT 95.9 % 95.0 - 98.0 [facility] ital ID Date Data Source [id number] 09/25/2020 07:29:00 AM EST [facility] Name Value Range Interpretation Code Description Data Sanjuana rce(s) Supporting Document(s) CULTURE URINE [facility] _CULTURE URINE_$$[id number]$$[id number]$$085129$$800266$$795367$$676151$$985278$$358622$$855950$$ 603135$$333846$$835569$$873109$$540508$$349499$$625462$$492750$$689720$$840629$$ 700051$$626270$$636361$$687993$$656605$$745549$$134826$$[id number] -- Continued on next page --Patient: JAROD Ross Order: [id number] Page 2Culture: CULTURE URINE Status: Final ====$$[id number]$$[id number] DATE/TIME: 09/25/2020 00:06Culture: CULTURE URINE Status: FinalIsolate 1 Yeast Flag: A . . . . . . .9feurxryz36,000-25,000 colony forming units per mLRequest for further identification must be madewithin 1 week.Urine Culture,Comprehensive: E1Yomsu Flag: AP1 Test performed by: [facility] CLIA #: [id number] [address] [place] [id number] [facility] [id number] Director : Abilio Ratliff MD NPI #:Hat Lining Blocker : [email or web address]/25/[email or web address] REF ID Date Data Source [id number] 09/22/2020 06:18:00 PM EST [facility] Name Value Range Interpretation Code Description Data Sanjuana rce(s) Supporting Document(s) URINALYSIS [facility] URINALYSIS SOURCE R [facility] COLOR yellow NORMAL: Yellow [facility] CLARITY clear NORMAL: Clear [facility] Specific gravity of Urine by Test strip 1.020 1.001 - 1.030 [facility] pH 5 5 - 9 [facility] Glucose [Mass/volume] in Urine by Test strip 250 NORMAL: Negat dung A [facility] Bilirubin.total [Presence] in Urine by Test strip NEG NORMAL: Negative [facility] Ketones [Presence] in Urine by Test strip NEG NORMAL: Negative [facility] Protein [Mass/volume] in Urine by Test strip 30 NORMAL: Negat dung [facility] Nitrite [Presence] in Urine by Test strip NEG NORMAL: Negative [facility] BLOOD NEG NORMAL: Negative [facility] Leukocyte esterase [Presence] in Urine by Test strip 25 SUSAN L: Negative [facility] Urobilinogen [Mass/volume] in Urine by Test strip NOR less ben n 1.0 mg/dL [facility] MICROSCOPIC See Below [facility] WBC 7 - 10 NORMAL: NONE SEEN A [facility] Erythrocytes [#/volume] in Urine by Test strip 1 - 3 NORMAL: NON E SEEN [facility] EPITHELIAL FEW NORMAL: NONE SEEN [facility] Bacteria [Presence] in Urine sediment by Light microscopy Tr ilia NORMAL: NONE SEEN [facility] Mucus [Presence] in Urine sediment by Light microscopy Trace NORMAL: NONE SEEN [facility] YEAST Few A [facility] ID Date Data Source [id number] 09/22/2020 04:45:00 PM EST [facility] Name Value Range Interpretation Code Description Data Sanjuana rce(s) Supporting Document(s) COVID19 Case rprt NOT DETECTED [facility] This lab was ordered by [facility] and reported by [facility]. ID Date Data Source [id number] 09/22/2020 06:44:00 PM EST [facility] NOT DETECTEDNOT DETECTED{ PROC EDURAL CONTROL VALID KIT LOT # [id number] 09/22/20.DW . KIT EXP DATE _[id number] 09/22/20.DW . NORMAL RANGE IS NOT DETECTEDNEGATIVE RESULTS SHOULD BE TREATED PRESUMPTIVE AND, IF INCONSISTENT WITHCLINICAL SIGNS AND SYMPTOMS OR NECESSARY FOR PATIENT MANAGEMENT, SHOULD BETESTED WITH DIFFERENT AUTHORIZED OR CLEARED MOLECULAR TESTS. NEGATIVE RESULTSDO NOT PRECLUDE SARS-CoV-2 INFECTION AND SHOULD NOT BE USED THE SOLE BASISFOR PATIENT MANAGEMENT DECISIONS. Name Value Range Interpretation Code Description Data Sanjuana rce(s) Supporting Document(s) ID Date Data Source [id number] 09/27/2020 06:40:00 PM EDT [facility] [address] Name Value Range Interpretation Code Description Data Sanjuana rce(s) Supporting Document(s) Bacteria identified in Blood by Culture [facility] NO GROWTH AFTER 5 DAYS ID Date Data Source [id number] 09/29/2020 02:41:00 PM EDT [facility] Name Value Range Interpretation Code Description Data Sanjuana rce(s) Supporting Document(s) CULTURE BLOOD [facility] forbes _CULTURE BLOOD_ TEST PERFORM ED AT [facility] [address] [place] [id number] [facility]# [id number] SEE SCANNED REPORT{ PRELIM ID Date Data Source [id number] 09/22/2020 04:46:00 PM EST [facility] Name Value Range Interpretation Code Description Data Sanjuana rce(s) Supporting Document(s) COMPREHENSIVE METABOLIC PANEL [facility] COMPREHENSIVE METABOLIC PANEL Sodium [Moles/volume] in Serum or Plasma 142 mEq/L 134 - 153 [facility] Potassium [Moles/volume] in Serum or Plasma 4.8 mEq/L 3.6 - 5.0 [facility] Chloride [Moles/volume] in Serum or Plasma 107 mEq/L 98 - 107 [facility] Carbon dioxide, total [Moles/volume] in Serum or Plasma 27 MEQ/L 22 - 30 [facility] Glucose [Mass/volume] in Serum or Plasma 300 MG/DL 70 - 99 H [facility] BUN 44 MG/DL 7 - 21 [facility] Creatinine [Mass/volume] in Serum or Plasma 0.7 MG/DL 0.7 - 1.5 [facility] BUN/CREAT 63 8 - 27 [facility] Protein [Mass/volume] in Serum or Plasma 5.0 G/DL 6.3 - 8.2 L [facility] Albumin [Mass/volume] in Serum or Plasma 3.0 G/DL 3.9 - 5.0 L [facility] Globulin [Mass/volume] in Serum by calculation 2.0 GM/DL 2.4 - 3.2 L [facility] A/G RATIO 1.5 0.8 - 2.0 [facility] Calcium [Mass/volume] in Serum or Plasma 9.3 MG/DL 8.4 - 10.2 [facility] Bilirubin.total [Mass/volume] in Serum or Plasma <0.7 MG/DL 0.2 - 1.3 [facility] Alkaline phosphatase [Enzymatic activity/volume] in Serum or Plasma 65 U/L 38 - 126 [facility] Aspartate aminotransferase [Enzymatic activity/volume] in Serum or Plasma 197 U/L 5 - 40 H [facility] Alanine aminotransferase [Enzymatic activity/volume] in Seru m or Plasma 382 U/L 7 - 56 H [facility] Anion gap 3 in Serum or Plasma 8.0 mmol/L 8.0 - 16.0 [facility] AGE 65 yrs [facility] NON-AA GFR >60 mL/min [facility] AFR AMER GFR >60 mL/min [facility] Male GFR In terprentation 20-49 yrs >60 mL/min Normal 50-59 yrs >56 mL/min Normal 60-69 yrs >49 mL/min Normal 70-79yrs >42 mL/min Normal 80 and above >35 mL/min Normal Female GFR Interpretation 20-39 yrs >60 mL/min Normal 40-49 yrs >58 mL/min Normal 50-59 yrs >51 mL/min Normal 60-69 yrs >45 mL/min Normal 70-79 yrs >39 mL/min Normal 80 and above >32 mL/min Normal ID Date Data Source [id number] 09/22/2020 04:46:00 PM [facility] Name Value Range Interpretation Code Description Data Sanjuana rce(s) Supporting Document(s) TROPONIN T 0.03 NG/ML 0.00 - 0.10 [facility] TROPONIN T0.1 ng/ml Recommended as the c linical threshold value forTroponin T. ID Date Data Source [id number] 09/22/2020 04:45:00 PM [facility] Name Value Range Interpretation Code Description Data Sanjuana rce(s) Supporting Document(s) Ammonia [Mass/volume] in Plasma 49.0 UG/DL 27.2 - 102 [facility] ID Date Data Source [id number] 09/22/2020 04:38:00 PM [facility] Name Value Range Interpretation Code Description Data Sanjuana rce(s) Supporting Document(s) Fibrin D-dimer FEU [Mass/volume] in Platelet poor plasma 0.74 ug /mL 0.27 - 0.50 H [facility] ID Date Data Source [id number] 09/22/2020 04:38:00 PM [facility] Name Value Range Interpretation Code Description Data Sanjuana rce(s) Supporting Document(s) Prothrombin time (PT) 27.2 SECONDS 11.0 - 15.5 H [facility] INR in Platelet poor plasma by Coagulation assay 2.39 0.93 - 1. 23 H [facility] aPTT in Blood by Coagulation assay 49.0 SECONDS 24.8 - 36.7 H [facility] \\BLDo\\INR INTERPRETATION\\BLDx\\ Therapeutic range for Coumadin and related oral anticoagulants. - International Normalized Ratio (INR): 2.0 - 3.0 for Venous Thrombosis, Pulmonary Embolus, Tissue heart valves, Acute GA Atrial Fibrillation, Valvular heart disease and recurrent Systemic Embolism. - International Normalized Ratio (INR): 2.5 - 3.5 for Mechanical Prosthetic valve. ID Date Data Source [id number] 09/22/2020 04:25:00 PM [facility] Name Value Range Interpretation Code Description Data Sanjuana rce(s) Supporting Document(s) Lactate [Moles/volume] in Serum or Plasma 1.9 MMOL/L 0.2 - 2.2 [facility] ID Date Data Source [id number] 09/22/2020 04:18:00 PM [facility] Name Value Range Interpretation Code Description Data Sanjuana rce(s) Supporting Document(s) CBC W/AUTOMATED DIFF [facility] COMPLETE BLOOD COUNT Leukocytes [#/volume] in Blood by Automated count 9.2 10^3/uL 4.2 - 1 1.0 [facility] Erythrocytes [#/volume] in Blood by Automated count 4.25 10^6/uL 4. 50 - 6.30 L [facility] Hemoglobin [Mass/volume] in Blood 11.1 g/dL 14.0 - 16.0 L [facility] Hematocrit [Volume Fraction] of Blood by Automated count 37.2 % 4 1.0 - 51.0 L [facility] Erythrocyte mean corpuscular volume [Entitic volume] by Auto mated count 87.5 fL 80.0 - 94.0 [facility] Erythrocyte mean corpuscular hemoglobin [Entitic mass] by Automated count 26.1 pg 27.0 - 34.0 L [facility] Erythrocyte mean corpuscular hemoglobin concentration [Mass/volume] by Automated count 29.8 g/dL 31.0 - 36.0 L [facility] Erythrocyte distribution width [Ratio] by Automated count 19.9 % 11.5 - 14.8 H [facility] Platelets [#/volume] in Blood by Automated count 194 10^3/uL 150 - 45 0 [facility] Platelet mean volume [Entitic volume] in Blood by Automated count 9.4 fL 7.4 - 10.4 [facility] Neutrophils/100 leukocytes in Blood by Automated count 77.9 % 37. 0 - 80.0 [facility] Lymphocytes/100 leukocytes in Blood by Manual count 12.2 % 25.0 - 40.0 L [facility] Monocytes/100 leukocytes in Blood by Automated count 8.6 % 3.0 - 8.0 H [facility] Eosinophils/100 leukocytes in Blood by Automated count 0.4 % 0.0 - 7.0 [facility] Basophils/100 leukocytes in Blood by Automated count 0.5 % 0.0 - 2.0 [facility] %IG 0.4 % 0.0 - 0.0 [facility] %NRBC 0.0 % 0.0 - 0.0 [facility] Neutrophils [#/volume] in Blood by Automated count 7.17 10^3/uL 2.00 - 6.90 H [facility] Lymphocytes [#/volume] in Blood by Automated count 1.12 10^3/uL 0.60 - 3.40 [facility] Monocytes [#/volume] in Blood by Automated count 0.79 10^3/uL 0.00 - 0.90 [facility] Eosinophils [#/volume] in Blood by Automated count 0.04 10^3/uL 0.00 - 0.70 [facility] Basophils [#/volume] in Blood by Automated count 0.05 10^3/uL 0.00 - 0.20 [facility] #IG 0.04 10^3/uL 0.00 - 0.10 [facility] #NRBC 0.00 10^3/uL 0.00 - 0.00 [facility] MANUAL DIFF NOT INDICATED [facility] RBC MORPH NOT INDICATED [facility] sp[facility] ID Date Data Source [id number] 09/29/2020 02:41:00 PM EDT [facility] Name Value Range Interpretation Code Description Data Sanjuana rce(s) Supporting Document(s) CULTURE BLOOD [facility] _CULTURE BLOOD_ [place] [address] CLIA# [id number] SEE SCANNED REPORT{ PRELIM ID Date Data Source [id number] 09/22/2020 04:26:00 PM EST [facility] Name Value Range Interpretation Code Description Data Sanjuana rce(s) Supporting Document(s) CHRISTIANA TEST POSITIVE A [facility] FiO2 ROOM AIR [facility] SITE RADIAL LT [facility] pH of Arterial blood 7.36 7.34 - 7.44 [facility] Carbon dioxide [Partial pressure] in Blood 47.7 mm/HG 35.0 - 45.0 H [facility] Oxygen [Partial pressure] in Blood 42.2 mm/HG 75.0 - 100 L [facility] Bicarbonate [Moles/volume] in Blood 26.2 meq/L 22.0 - 26.0 H [facility] TCO2 27.7 meq/L 23.0 - 27.0 H [facility] Base excess in Blood by calculation 0.3 -2.0 - 2.0 [facility] O2 SAT 84.7 % 95.0 - 98.0 L [facility] ID Date Data Source [id number] 09/22/2020 01:28:41 PM EST [facility] Name Value Range Interpretation Code Description Data Sanjuana rce(s) Supporting Document(s) ED Provider Notes [facility] CRBBNw4pMyBRNnWg39/WOEsoFGLah7RaRKcoOSi1KYtqNOEqH6CdKEI7hU9fIGG1UEcURlBjLaGhBlO7 lbm [file] bTt1u3fRVELPUN/h/juan manuel/Zli4MiHWanXanpIqHv3LjaD+StPKQb0kzpxGWo2VhHNI7/iB1waBiVAuXAz [file] E+DQogICAgICAgICAgICAgICAgICAgICAgICAgICAgICAgICAgICAgICAgICAgICAgICAgICAgICAgIC AgICAgICAgICAgICAgICAgICAgICAgICAgICAgICAg ICAgICAgICAgICAgDQogICAgICAgICAgICAgICAgICAgICAgICAgICAgICAgICAgICAgICAgICAgICAg ICAgICAgICAgICAgICAgICAgICAgICAgICAgICAgICAgICAgICAgICAgICAgICAgICAgICAgDQogICAg ICAgICAgICAgICAgICAgICAgICAgICAgICAgICAgIC AgICAgICAgICAgICAgICAgICAgICAgICAgICAgICAgICAgICAgICAgICAgICAgICAgICAgICAgICAgIC AgICAgDQogICAgICAgICAgICAgICAgICAgICAgICAgICAgICAgICAgICAgICAgICAgICAgICAgICAgIC AgICAgICAgICAgICAgICAgICAgICAgICAgICAgICAg ICAgICAgICAgICAgICAgDQogICAgICAgICAgICAgICAgICAgICAgICAgICAgICAgICAgICAgICAgICAg ICAgICAgICAgICAgICAgICAgICAgICAgICAgICAgICAgICAgICAgICAgICAgICAgICAgICAgICAgDQog ICAgICAgICAgICAgICAgICAgICAgICAgICAgICAgIC AgICAgICAgICAgICAgICAgICAgICAgICAgICAgICAgICAgICAgICAgICAgICAgICAgICAgICAgICAgIC AgICAgICAgDQogICAgICAgICAgICAgICAgICAgICAgICAgICAgICAgICAgICAgICAgICAgICAgICAgIC AgICAgICAgICAgICAgICAgICAgICAgICAgICAgICAg ICAgICAgICAgICAgICAgICAgDQogICAgICAgICAgICAgICAgICAgICAgICAgICAgICAgICAgICAgICAg ICAgICAgICAgICAgICAgICAgICAgICAgICAgICAgICAgICAgICAgICAgICAgICAgICAgICAgICAgICAg DQogICAgICAgICAgICAgICAgICAgICAgICAgICAgIC AgICAgICAgICAgICAgICAgICAgICAgICAgICAgICAgICAgICAgICAgICAgICAgICAgICAgICAgICAgIC AgICAgICAgICAgDQogICAgICAgICAgICAgICAgICAgICAgICAgICAgICAgICAgICAgICAgICAgICAgIC AgICAgICAgICAgICAgICAgICAgICAgICAgICAgICAg XOWiTGLkTKXdYSKkLWTeUURbAIKnIAi8Z8mrXJJoRMAhYU5bFWu5Lu5+VSrLOgLvVVT7ljYhmM7OGS3t v1YmGWwjOXTqe0VjGQy6UX0YFWAjTGrhLI0ZCCgrck5ZMUGsYJSdgKIPe8iiDdUdGRY8MICeGoalPH4I LAJpX3pkqtEjUKLmJZSOODovAXMQQMjlJYUAEVPjBB AqHnPcBnKxOGViTVWjTLOWXJF0BUOhTeHvPVuaQV9Ay7YndDJ7HRp+Zk1ZYZ5he5KrYQjtWPKhZW1xzg 2JFDpGWuPsM7WvihH9GSUhUHPrUp6YGPSgHTJcuFZ6NLDqLVLEDfYsR0DriK47FZRZBw0+DQplbmRvYm oWClZiWWGdn7DlQFv7CN3EULUyDUa6cVSlPWOgJVDm qybjHQSjEc89ZBXkRhinQOBgevHiuKQVDG4tzZGlpKH8zPkmMU5nZRZrZu1oYp3kIAXtSCOnFpFjKRHJ IK8EMIEvSRPgkPBvWGVmREGZPJ9KJBjzVKG7VepydnVbmYWgPBasMI8HZGViroVzLankPIYTIEr+Pg0K TG0wq6SfKOf2FBIvYD5gbg5CONwQBjKiP4J4rRSvJ5 A7QWpjSe4IOFTiDCRhKyxdCLZIEQevAT8OPX1gidJ3AC7OvZQpPGBjFAJbaGRfPIi0R52zkYGsTAvmDI 0KICA+Rosanne+Zm0IPYQrGHIaCHIdQaWeWHYTAlKrR4LhG6DSr4OdK6UkNC97dTqlieDzETabXZ0VJG1yUS DvHANAZV8PlEBrgA3mlaQyNMLpJSYUPxTpP59bvVIs YHGrCTB3IZBnEn6KPTCgH1WdneLqrRjnjiBgMDMkRFLONJ0ETMcbsqSafXCinGkmEV49tWxkVG2OKc6U SlIdZY7zsp2ZiWIwYm5HOFY8Ce2JMAIeJQJlXUTdHEW0SPLiYbOoBQyoXGLlBKJjHNT8DETdVLMfPA0O YxQpIDDeVTDjUQyxXUDyMQYiqv6GCLJpJAT0JCy0KU GzQJVyVJGhEIxdOYOhYBVePNZ0NCXrUQDmDP0XJsGsQIMaNVO8NDLdURLwLKIpxv4DHBWlWBSyOlKxBz GtFDJxAVCmIOmsNSDqQPL1EYCpTJQtGOZpBR6SBtFgGEJiGQD4HCPzAJMtKTGatu8BFBLlLNVdMQMpQa NoUCXbPSWsPIehPZIkNAU2MfAsNKPpNTMdXD5HIxIq RIGeSDB0PhMoBFChTXSkup3BGBRhCGMaCTR6DbOmXWNmNKRcNOtzWQPaROClGfUmLGKfONRwBA2UXxBo HZCnBIK9GEtzTHNsAFMiyf2WXBAbJBBbRAF7JyFaYTFsBCCxGGdhCYXjSTK2NiBaYKGwAXPaTO4ICkSb BWDdHWB5AEFzOVSfKRIgal8XROCpBDIsFtp0BFRuSP BeRPEtFZgdVZVzOCD4OYC6IMCfGWRsME9IPwFhEXAwIJonVsDgLWXeLFDyzi4WUDQySZUcTMWuTHSkFG PvELEkSUjaADJqTXV6QcJ8MFJbZCAxQD8UZtChVAUyIKe9AwPeDTJrIIPepn2JCBWyZVHdHZB1WOPsMA BuMOHcIRrgXSMfKJHhMmK5YICsESEgAE6LTeDdQYYa FeU3VSXaUJVtAOWray1GKVBxGGTsAZJhCKHgIWTcFALqKZwmJQSuJTZgXONkNBOfOPVqWR1ICjAaTJMr FfWwMrIyCGDpZSFkzc2TVSBaRTCxQhY2MEJdKHJiTOVhRAuoFKGmPIU4CyT6HMUiYBGtFO7JRwKqBJRx XqUhEAFkLSRhGIWjby8IJNEuOKVsLXQ3ZxTxVNGlOI JbHVjeSEYoNKW5GTcdZZYhHYKwMR6DYxHnWAMeCbV3CexkIXZkENRjpz3SSHKdLLAsTZs4FEWhXHDpUH IoIScnANJhHQXlVTT8OMCwCNDjME4ESiVxNVWfDKL4TrvtOXHuOVKsdz8TUJUuSQF8CoLhHkWySEUfWO XoKVknPRUpJLYoASg9TJErHACbJD5XOkAyXWTdRXUn EbXjHUNsNAYdqd1PhNNlrSjyhw5OYIaVTh8JuLkoCATkSOavFi3fmXY5RSEqTCLQAg0LddLoRGWfUKQA XKofDFIwIMFmEywvMOc5MeMpSKNvNBWrGOLaCXRnAIE6VWhsFHOqEzP7YlMqWwBoHSJgNeD8LRZ1ZWHd BKXkPYZ6EDW9ZEAzRpS+HC5pCIt+Fq8Zf9UadcQ6sjWbEHxhDSG5LpmHOvNrTN7PMEh= ID Date Data Source [id number] 09/27/2020 06:18:00 PM EDT [facility] [address] Name Value Range Interpretation Code Description Data Sanjuana rce(s) Supporting Document(s) Bacteria identified in Blood by Culture [facility] NO GROWTH AFTER 5 DAYS ID Date Data Source [id number] 09/28/2020 09:43:00 AM EDT [facility] Value Range Interpretation Code Description Data Sanjuana rce(s) Supporting Document(s) [facility] BLOOD CULTURE [facility] _CULTURE BLOOD_ TEST PERFORME D AT [address] [address] CLIA# [id number] SEE SCANNED REPORT{ PRELIM ID Date Data Source [id number] 09/28/2020 09:43:00 AM EDT [facility] Value Range Interpretation Code Description Data Sanjuana rce(s) Supporting Document(s) [facility] BLOOD CULTURE [facility] _CULTURE BLOOD_ TEST PERFORME D AT [address] [address] CLIA# [id number] SEE SCANNED REPORT{ PRELIM ID Date Data Source [id number] 09/22/2020 07:42:00 AM EST [facility] Value Range Interpretation Code Description Data Sanjuana rce(s) Supporting Document(s) Lactate [Moles/volume] in Serum or Plasma 1.4 MMOL/L 0.2 - 2.2 [facility] ID Date Data Source [id number] 09/21/2020 09:58:00 PM [facility] Value Range Interpretation Code Description Data Sanjuana rce(s) Supporting Document(s) COMPREHENSIVE METABOLIC PANEL [facility] COMPREHENSIVE METABOLIC PANEL Sodium [Moles/volume] in Serum or Plasma 141 mEq/L 134 - 153 [facility] Potassium [Moles/volume] in Serum or Plasma 4.8 mEq/L 3.6 - 5.0 [facility] Chloride [Moles/volume] in Serum or Plasma 108 mEq/L 98 - 107 H [facility] Carbon dioxide, total [Moles/volume] in Serum or Plasma 26 MEQ/L 22 - 30 [facility] Glucose [Mass/volume] in Serum or Plasma 224 MG/DL 70 - 99 H [facility] BUN 52 MG/DL 7 - 21 H [facility] Creatinine [Mass/volume] in Serum or Plasma 0.9 MG/DL 0.7 - 1.5 [facility] BUN/CREAT 58 8 - 27 H [facility] Protein [Mass/volume] in Serum or Plasma 5.1 G/DL 6.3 - 8.2 L [facility] Albumin [Mass/volume] in Serum or Plasma 3.0 G/DL 3.9 - 5.0 L [facility] Globulin [Mass/volume] in Serum by calculation 2.1 GM/DL 2.4 - 3.2 L [facility] A/G RATIO 1.4 0.8 - 2.0 [facility] Calcium [Mass/volume] in Serum or Plasma 8.7 MG/DL 8.4 - 10.2 [facility] Bilirubin.total [Mass/volume] in Serum or Plasma <0.7 MG/DL 0.2 - 1.3 [facility] Alkaline phosphatase [Enzymatic activity/volume] in Serum or Plasma 65 U/L 38 - 126 [facility] Aspartate aminotransferase [Enzymatic activity/volume] in Serum or Plasma 309 U/L 5 - 40 H [facility] Alanine aminotransferase [Enzymatic activity/volume] in Seru m or Plasma 402 U/L 7 - 56 H [facility] Anion gap 3 in Serum or Plasma 7.0 mmol/L 8.0 - 16.0 L [facility] AGE 65 yrs [facility] NON-AA GFR >60 mL/min [facility] AFR AMER GFR >60 mL/min [facility] Male GFR In terprentation 20-49 yrs >60 mL/min Normal 50-59 yrs >56 mL/min Normal 60-69 yrs >49 mL/min Normal 70-79yrs >42 mL/min Normal 80 and above >35 mL/min Normal Female GFR Interpretation 20-39 yrs >60 mL/min Normal 40-49 yrs >58 mL/min Normal 50-59 yrs >51 mL/min Normal 60-69 yrs >45 mL/min Normal 70-79 yrs >39 mL/min Normal 80 and above >32 mL/min Normal ID Date Data Source [id number] 09/21/2020 09:45:00 PM [facility] Name Value Range Interpretation Code Description Data Sanjuana rce(s) Supporting Document(s) CBC NO DIFF [facility] COMPLETE BLOOD COUNT Leukocytes [#/volume] in Blood by Automated count 9.0 10^3/uL 4.2 - 1 1.0 [facility] Erythrocytes [#/volume] in Blood by Automated count 4.18 10^6/uL 4. 50 - 6.30 L [facility] Hemoglobin [Mass/volume] in Blood 11.0 g/dL 14.0 - 16.0 L [facility] Hematocrit [Volume Fraction] of Blood by Automated count 37.0 % 4 1.0 - 51.0 L [facility] Erythrocyte mean corpuscular volume [Entitic volume] by Auto mated count 88.5 fL 80.0 - 94.0 [facility] Erythrocyte mean corpuscular hemoglobin [Entitic mass] by Automated count 26.3 pg 27.0 - 34.0 L [facility] Erythrocyte mean corpuscular hemoglobin concentration [Mass/volume] by Automated count 29.7 g/dL 31.0 - 36.0 L [facility] Erythrocyte distribution width [Ratio] by Automated count 19.9 % 11.5 - 14.8 H [facility] Platelets [#/volume] in Blood by Automated count 191 10^3/uL 150 - 45 0 [facility] Platelet mean volume [Entitic volume] in Blood by Automated count 9.8 fL 7.4 - 10.4 [facility] ID Date Data Source [id number] 09/18/2020 09:09:00 AM [facility] Name Value Range Interpretation Code Description Data [facility](s) Supporting Document(s) CBC NO DIFF [facility] COMPLETE BLOOD COUNT Leukocytes [#/volume] in Blood by Automated count 18.6 10^3/uL 4.2 - 11.0 H [facility] Erythrocytes [#/volume] in Blood by Automated count 3.83 10^6/uL 4. 50 - 6.30 L [facility] Hemoglobin [Mass/volume] in Blood 10.2 g/dL 14.0 - 16.0 L [facility] Hematocrit [Volume Fraction] of Blood by Automated count 32.7 % 4 1.0 - 51.0 L [facility] Erythrocyte mean corpuscular volume [Entitic volume] by Auto mated count 85.4 fL 80.0 - 94.0 [facility] Erythrocyte mean corpuscular hemoglobin [Entitic mass] by Automated count 26.6 pg 27.0 - 34.0 L [facility] Erythrocyte mean corpuscular hemoglobin concentration [Mass/volume] by Automated count 31.2 g/dL 31.0 - 36.0 [facility] Erythrocyte distribution width [Ratio] by Automated count 19.9 % 11.5 - 14.8 H [facility] Platelets [#/volume] in Blood by Automated count 232 10^3/uL 150 - 45 0 [facility] Platelet mean volume [Entitic volume] in Blood by Automated count 10.6 fL 7.4 - 10.4 H [facility] ID Date Data Source [id number] 09/20/2020 09:29:00 AM EST [facility] Name Value Range Interpretation Code Description Data Sanjuana rce(s) Supporting Document(s) CULTURE URINE [facility] _CULTURE URINE_$$[id number]$$[id number]$$[id number]$$[id number]$$[id number]$$[id number]$$[id number]$$[id number]$$[id number]$$ [id number]$$[id number]$$196932$$574165$$167451$$[id number]$$[id number]$$[id number]$$[id number]$$[id number]$$ 646645$$[id number]$$410087$$412324$$266080$$[id number]$$[id number]$$[id number] -- Continued on next page --Patient: JAROD Ross Order: [id number] Page 2Culture: CULTURE URINE Status: Final ====$$[id number]$$[id number] DATE/TIME: 09/20/2020 07:05Culture: CULTURE URINE Status: FinalIsolate 1 Yeast Flag: A . . . . . . .3gyiqpbsw36,000-25,000 colony forming units per mLRequest for further identification must be madewithin 1 week.Urine Culture,Comprehensive: [id number] Flag: AP1 [facility] performed by: [facility] #: [id number] [address] [place] [address] [id number] [facility] [id number] Director : Abilio Ratliff MD NPI #:H[employer] : [email or web address] REF ID Date Data Source [id number] 09/17/2020 08:02:00 PM EST [facility] Name Value Range Interpretation Code Description Data Sanjuana rce(s) Supporting Document(s) URINALYSIS [facility] URINALYSIS SOURCE Clean Catch [facility] COLOR yellow NORMAL: Yellow [facility] CLARITY hazy NORMAL: Clear [facility] Specific gravity of Urine by Test strip 1.025 1.001 - 1.030 [facility] pH 5 5 - 9 [facility] Glucose [Mass/volume] in Urine by Test strip NORM NORMAL: Negat [facility] Bilirubin.total [Presence] in Urine by Test strip NEG NORMAL: Negative [facility] Ketones [Presence] in Urine by Test strip 5 NORMAL: Negative [facility] Protein [Mass/volume] in Urine by Test strip [facility]Presence] in Urine by Test strip NEG NORMAL: Negative [facility] BLOOD 10 NORMAL: Negative [facility] Leukocyte esterase [Presence] in Urine by Test strip 100 SUSAN L: Negative [facility] Urobilinogen [Mass/volume] in Urine by Test strip NOR less ben n 1.0 mg/dL [facility] MICROSCOPIC See Below [facility] WBC 20 - 30 NORMAL: NONE SEEN [facility] Erythrocytes [#/volume] in Urine by Test strip 0 - 1 NORMAL: NON E SEEN [facility] EPITHELIAL FEW NORMAL: NONE SEEN [facility] Mucus [Presence] in Urine sediment by Light microscopy Trace NORMAL: NONE SEEN [facility] Crystals [type] in Urine sediment by Light microscopy See Below [facility] CALCIUM OX Trace NORMAL: NONE SEEN [facility] ID Date Data Source [id number] 09/17/2020 09:24:00 AM [facility] Name Value Range Interpretation Code Description Data Sanjuana rce(s) Supporting Document(s) CBC NO DIFF [facility] ital COMPLETE BLOOD COUNT Leukocytes [#/volume] in Blood by Automated count 16.2 10^3/uL 4.2 - 11.0 H [facility] Erythrocytes [#/volume] in Blood by Automated count 4.40 10^6/uL 4. 50 - 6.30 L [facility] Hemoglobin [Mass/volume] in Blood 11.6 g/dL 14.0 - 16.0 L [facility] Hematocrit [Volume Fraction] of Blood by Automated count 37.1 % 4 1.0 - 51.0 L [facility] Erythrocyte mean corpuscular volume [Entitic volume] by Auto mated count 84.3 fL 80.0 - 94.0 [facility] Erythrocyte mean corpuscular hemoglobin [Entitic mass] by Automated count 26.4 pg 27.0 - 34.0 L [facility] Erythrocyte mean corpuscular hemoglobin concentration [Mass/volume] by Automated count 31.3 g/dL 31.0 - 36.0 [facility] Erythrocyte distribution width [Ratio] by Automated count 20.3 % 11.5 - 14.8 H [facility] Platelets [#/volume] in Blood by Automated count 252 10^3/uL 150 - 45 0 [facility] Platelet mean volume [Entitic volume] in Blood by Automated count 10.2 fL 7.4 - 10.4 [facility] ID Date Data Source [id number] 09/17/2020 09:02:00 AM [facility] Name Value Range Interpretation Code Description Data Sanjuana rce(s) Supporting Document(s) Magnesium [Mass/volume] in Serum or Plasma 1.3 MG/DL 1.7 - 2.2 L [facility] ID Date Data Source [id number] 09/17/2020 09:02:00 AM [facility] Name Value Range Interpretation Code Description Data Sanjuana rce(s) Supporting Document(s) Thyroxine (T4) free index in Serum or Plasma by calculation 1.86 NG/DL 0.93 - 1.70 H [facility] ID Date Data Source [id number] 09/17/2020 09:02:00 AM [facility] Name Value Range Interpretation Code Description Data Sanjuana rce(s) Supporting Document(s) COMPREHENSIVE METABOLIC PANEL [facility] COMPREHENSIVE METABOLIC PANEL Sodium [Moles/volume] in Serum or Plasma 137 mEq/L 134 - 153 [facility] Potassium [Moles/volume] in Serum or Plasma 4.5 mEq/L 3.6 - 5.0 [facility] Chloride [Moles/volume] in Serum or Plasma 99 mEq/L 98 - 107 [facility] Carbon dioxide, total [Moles/volume] in Serum or Plasma 26 MEQ/L 22 - 30 [facility] Glucose [Mass/volume] in Serum or Plasma 139 MG/DL 70 - 99 H [facility] BUN 36 MG/DL 7 - 21 H [facility] Creatinine [Mass/volume] in Serum or Plasma 1.1 MG/DL 0.7 - 1.5 [facility] BUN/CREAT 33 8 - 27 H [facility] Protein [Mass/volume] in Serum or Plasma 5.2 G/DL 6.3 - 8.2 L [facility] Albumin [Mass/volume] in Serum or Plasma 3.3 G/DL 3.9 - 5.0 L [facility] Globulin [Mass/volume] in Serum by calculation 1.9 GM/DL 2.4 - 3.2 L [facility] A/G RATIO 1.7 0.8 - 2.0 [facility] Calcium [Mass/volume] in Serum or Plasma 8.8 MG/DL 8.4 - 10.2 [facility] Bilirubin.total [Mass/volume] in Serum or Plasma <0.7 MG/DL 0.2 - 1.3 [facility] Alkaline phosphatase [Enzymatic activity/volume] in Serum or Plasma 61 U/L 38 - 126 [facility] Aspartate aminotransferase [Enzymatic activity/volume] in Serum or Plasma 16 U/L 5 - 40 [facility] Alanine aminotransferase [Enzymatic activity/volume] in Seru m or Plasma 11 U/L 7 - 56 [facility] Anion gap 3 in Serum or Plasma 12.0 mmol/L 8.0 - 16.0 [facility] AGE 65 yrs [facility] NON-AA GFR >60 mL/min [facility] AFR AMER GFR >60 mL/min [facility] Male GFR In terprentation 20-49 yrs >60 mL/min Normal 50-59 yrs >56 mL/min Normal 60-69 yrs >49 mL/min Normal 70-79yrs >42 mL/min Normal 80 and above >35 mL/min Normal Female GFR Interpretation 20-39 yrs >60 mL/min Normal 40-49 yrs >58 mL/min Normal 50-59 yrs >51 mL/min Normal 60-69 yrs >45 mL/min Normal 70-79 yrs >39 mL/min Normal 80 and above >32 mL/min Normal ID Date Data Source [id number] 09/17/2020 09:01:00 AM [facility] Name Value Range Interpretation Code Description Data Sanjuana rce(s) Supporting Document(s) Hemoglobin A1c/Hemoglobin.total in Blood 7.8 % 4.4 - 6.1 H [facility] {A1]{HB] ID Date Data Source [id number] 09/17/2020 08:54:00 AM [facility] Name Value Range Interpretation Code Description Data Sanjuana rce(s) Supporting Document(s) Thyrotropin [Units/volume] in Serum or Plasma by Detec tion limit <= 0.05 mIU/L 1.43 uIU/mL 0.47 - 5.01 [facility] ID Date Data Source [id number] 09/17/2020 09:46:00 AM [facility] Name Value Range Interpretation Code Description Data Sanjuana rce(s) Supporting Document(s) Ferritin [Mass/volume] in Serum or Plasma 240.1 ng/mL 5.0 - 244 [facility] ID Date Data Source [id number] 09/17/2020 09:43:00 AM [facility] Name Value Range Interpretation Code Description Data Sanjuana rce(s) Supporting Document(s) CVE PANEL [facility] al LIPID PANEL Cholesterol [Mass/volume] in Serum or Plasma 122 MG/DL 131 - 200 L [facility] Deprecated Triglyceride [Mass/volume] in Serum or Plasma 134 MG/DL 3 5 - 160 [facility] HDL 35 MG/DL 29 - 86 [facility] Cholesterol in LDL [Mass/volume] in Serum or Plasma by Direc t assay 70 mg/dL 65 - 175 [facility] Cholesterol.total/Cholesterol in HDL [Mass Ratio] in Serum o r Plasma 3.5 3.4 - 4.9 [facility] LDL/HDL 2.00 1.00 - 3.55 [facility] ital CVE RISK CHOL/HDL LDL/HDLMEN: 1/2 AVERAGE 3.43 1.00 AVERAGE 4.97 3.55 2X AVERAGE 9.55 6.25 3X AVERAGE 23.99 7.99WOMEN: 1/2 AVERAGE 3.27 1.47 AVERAGE 4.44 3.22 2X AVERAGE 7.05 5.03 3X AVERAGE 11.04 6.14 ID Date Data Source [id number] 09/17/2020 09:43:00 AM EST [facility] Name Value Range Interpretation Code Description Data Sanjuana rce(s) Supporting Document(s) Iron [Mass/volume] in Serum or Plasma 26 UG/DL 42 - 135 L [facility] Iron binding capacity.unsaturated [Mass/volume] in Serum or Plasma 167 UG/DL 112 - 347 [facility] Iron binding capacity [Mass/volume] in Serum or Plasma 193 ug/dL 250 - 450 L [facility] Iron saturation [Mass Fraction] in Serum or Plasma 13 % [facility] ID Date Data Source [id number] 09/14/2020 07:14:40 PM EST [facility] Name Value Range Interpretation Code Description Data Sanjuana rce(s) Supporting Document(s) Discharge Summary [facility] AVPNTy4sJcQZFrLs63/FLRzkJXHrt6FsAWprERz3KPweVNFqK4ZjSXY8cJ9gHKM6YQySAzLiZePcBeZl [facility] [file] nF4NL3OO5C/4hHqep+YE6Xuwby+R26Uc6Rs/EEfgufwCfp2+fb+BQ+moisés/gs3gKT+O24Og8YC8FQiUsx7 [file] ICAgICAgICAgICAgICAgICAgICAgICAgICAgICAgIC AgICAgICAgICAgICAgICAgICAgICAgICAgICAgICAgICAgICAgICANCiAgICAgICAgICAgICAgICAgIC AgICAgICAgICAgICAgICAgICAgICAgICAgICAgICAgICAgICAgICAgICAgICAgICAgICAgICAgICAgIC AgICAgICAgICAgICAgICAgICAgICANCiAgICAgICAg ICAgICAgICAgICAgICAgICAgICAgICAgICAgICAgICAgICAgICAgICAgICAgICAgICAgICAgICAgICAg ICAgICAgICAgICAgICAgICAgICAgICAgICAgICAgICANCiAgICAgICAgICAgICAgICAgICAgICAgICAg ICAgICAgICAgICAgICAgICAgICAgICAgICAgICAgIC AgICAgICAgICAgICAgICAgICAgICAgICAgICAgICAgICAgICAgICAgICANCiAgICAgICAgICAgICAgIC AgICAgICAgICAgICAgICAgICAgICAgICAgICAgICAgICAgICAgICAgICAgICAgICAgICAgICAgICAgIC AgICAgICAgICAgICAgICAgICAgICAgICANCiAgICAg ICAgICAgICAgICAgICAgICAgICAgICAgICAgICAgICAgICAgICAgICAgICAgICAgICAgICAgICAgICAg ICAgICAgICAgICAgICAgICAgICAgICAgICAgICAgICAgICANCiAgICAgICAgICAgICAgICAgICAgICAg ICAgICAgICAgICAgICAgICAgICAgICAgICAgICAgIC AgICAgICAgICAgICAgICAgICAgICAgICAgICAgICAgICAgICAgICAgICAgICANCiAgICAgICAgICAgIC AgICAgICAgICAgICAgICAgICAgICAgICAgICAgICAgICAgICAgICAgICAgICAgICAgICAgICAgICAgIC AgICAgICAgICAgICAgICAgICAgICAgICAgICANCiAg ICAgICAgICAgICAgICAgICAgICAgICAgICAgICAgICAgICAgICAgICAgICAgICAgICAgICAgICAgICAg ICAgICAgICAgICAgICAgICAgICAgICAgICAgICAgICAgICAgICANCiAgICAgICAgICAgICAgICAgICAg ICAgICAgICAgICAgICAgICAgICAgICAgICAgICAgIC AgICAgICAgICAgICAgICAgICAgICAgICAgICAgICAgICAgICAgICAgICAgICAgICANCjw/vAWfK4fvyT LgqhC6L7reEi7KSz4EIH7hi1TyEDDcOToywpUiCtcKVcVdMQXoZbaBKtx0HIepXB3SgZLiS1PgP7XmIC qrSW4INQNhOOPaiCUoRLCxDDYvKtY4KHKqMCpvDK8D xUTsECgzKBJuPWYqZvOqYLOzEPTeWRScEVQaLLMDMRAqNZHpZdBmDJNtMQXsZC2WTOQvF863dkJeVi2C Ij2YJrCpAQ4bbu7YLhTrVVPlXefOXgj3YAglJW9PaVUtmVZfIhUbPFYIVnWvJ4nap5MxUgPbLEEPWDca TN4Lg3WvmKUmGSh+Sh5TLV9dy9CmSEdlOpQpDO8aui 9ZADtRWsFnG7RjkMkfFOBuz3QxDNJrVSDHeQ3hLLI2VFH2UJXfWSXzIEChY7vwS9qlJMSPHNIliCVxHz QkXuEcUFKpNFwxNECLOQnBDbWlZ9Tfg8JpWlX1QPDwHgSuUEyxMGQyNhJ5CX36fIqaBK8OXLSyVZEwIX 48RUK9PCJmLc9GBk1MYoReTH3aep2UEnzlXKOcBzdT Jkc2TQxdDW2XhBGvR6YmlVSpo3sWIxEhV0GYEQNtOQXvYj5IHXDaHeUhUBTgMSjpIC0fRDGxFHOUaRuw cpB4AL7GUT0mzfAhRN6FAeDxKz2nEn7UJmRpK4HzP2GpNEFxXVBYXRrxJW0VDHfeAU8hOK2Df8NGeJGm dP0tly4ULYHxKJYoGstdah4DLmjoC5U2pMvuXMUcHz NkFBKGYXkiCL2HKNHcZHD6JHJhMVLlXERKJjUtD66nSE7PS6Rxu45pYbR2SKXjJyJoKWgiHX67iWnkfn QzoGXohIacTT8BJk1+ENlrpjXqOrtYHreeZMKDIzErZfuRLjJkASPoWHOdNXItNjE0RyAvXn5URVMqVD NaWLTvXjIkVKCjEBHnMJtsDZAyOOUpLSV9PAGqTKCl LV4CSaFgFIVsXoO9ZPVeDJBfKFLzbg0XGGPgNLQdIPU5LaNfLLYqIPFzFXqhVRYaYNY0DzNtKWMxKXJg SC8JWcJcPRDlRNB7BeGrGYSiWESgus0TEJTpHAAgBQM5XkZpZGPjJTBvNLsyRKSzLWF1EvA7BDAnWDRk WZ7RKjYgXUHzJUV3QMIpXBFsDJVsti9BJIIeXEBcPZ t2TTFfZOQaZARgBZqeUUEtHVYdHKL0BZEbTSSbUA0IYtCcBCRiXPPeCwLgYUYzHAZjxm4UWEZwGHQnJd TdKxEbOBExIEKePQtgXWVvQQU4CvOgIBCcGUQcRC7PFyMlXZUyBWj2OaGzSETiYRTipq1BRQUjUESgIT tsGhTjRRJoJLHnYAdePYRuWUV7Dox3PXReUJTpFC9V OgIcICTcFVt9ATPuWWKpQQAgij7DEUBmIOChEXR1RgLsMYGmAIDvENnsXDSzBZFiKEG3PWMlMFQzSS3G EtIzKGXzLoWcRgooVJZbMUVxci8RILEuPHXsDLMmQqGrOIZzBRXlMNlnTXCpPYWxSZp2ISVvOYAcTI9H SlIrHFHmTjO9YpXyLEReLWKsob3DBBBtMDFjLnc6Vj CsILLaSQEqFJtuZEOaPGQaXCV1HFCgYPJvXD9XWsAyIJPzYjBsQpTrLHUaDXJcbm0FBZDkGUUeDQHeXC JzQFWzTWQnIQomZXIuODX5WZX6BDJtBNAbIW3ITkEfMLWeMvksRMBaFEJpWCYuab6LXTTyWRXxLVC3Fv LbAIChZCDmWEysRAUsEII2ESG3CWSvJVHtXZ3PNdHs XHOyXfi9XSQlQCOkWABczs3QIEEdDPSkLEPrRhQmOMYnYRKsHDtyOQYzEXGyWRb5STKdSMJbEK5XFuIn APWtPcO7EHgtARGaKVWolf1HRCPcCMIxGlGlHCTpGYStHTQmIXx4nmLnmWPiZCi0TA6FG6YavbCqVfbA Zt7Tt620HUG1VNVeJr5EL2bhWe4tYCDdUQFYKk1QTP b7GABdO9U4YCQtQKN7HIrbAlIlOfWgOjXeCZY4YevbAUW+XPrcXNAiFrK2TBY5MiklOpNiCmLvT9LoSr QbKdipZXW9ZE7pHIBXMi0+EIfjkIQyhBujUCRZSbYqNsZsJPvqCQVYKl3D ID Date Data Source [id number] 09/14/2020 11:56:26 AM [facility] Name Value Range Interpretation Code Description Data Sanjuana rce(s) Supporting Document(s) Glucose [Mass/volume] in Capillary blood by Glucometer 176 mg/dL 70- 140 H [facility] ID Date Data Source [id number] 09/14/2020 08:15:13 AM [facility] Value Range Interpretation Code Description Data Sanjuana rce(s) Supporting Document(s) Glucose [Mass/volume] in Capillary blood by Glucometer 242 mg/dL 70- 140 H [facility] ID Date Data Source [id number] 09/14/2020 04:57:22 AM [facility] Value Range Interpretation Code Description Data Sanjuana rce(s) Supporting Document(s) Vancomycin [Mass/volume] in Serum or Plasma --trough 18.7 ug/mL 10.0- 20.0 [facility] ID Date Data Source [id number] 09/13/2020 09:41:21 PM [facility] Value Range Interpretation Code Description Data Sanjuana rce(s) Supporting Document(s) Glucose [Mass/volume] in Capillary blood by Glucometer 183 mg/dL 70- 140 H [facility] ID Date Data Source [id number] 09/13/2020 04:38:07 PM [facility] Value Range Interpretation Code Description Data Sanjuana rce(s) Supporting Document(s) History and Physical [facility] HTODGf2qDzYMYgMj67/KESxwHABvj8VfVNggGFb0XGbrURYfP3JrMRP0sO3mLTQ8OVfHDwZlTpYjJuH2 lbm [file] E+DQogICAgICAgICAgICAgICAgICAgICAgICAgICAgICAgICAgICAgICAgICAgICAgICAgICAgICAgIC AgICAgICAgICAgICAgICAgICAgICAgICAgICAgICAgICAgICAgICAgICAgDQogICAgICAgICAgICAgIC AgICAgICAgICAgICAgICAgICAgICAgICAgICAgICAg ICAgICAgICAgICAgICAgICAgICAgICAgICAgICAgICAgICAgICAgICAgICAgICAgICAgICAgDQogICAg ICAgICAgICAgICAgICAgICAgICAgICAgICAgICAgICAgICAgICAgICAgICAgICAgICAgICAgICAgICAg ICAgICAgICAgICAgICAgICAgICAgICAgICAgICAgIC AgICAgDQogICAgICAgICAgICAgICAgICAgICAgICAgICAgICAgICAgICAgICAgICAgICAgICAgICAgIC AgICAgICAgICAgICAgICAgICAgICAgICAgICAgICAgICAgICAgICAgICAgICAgDQogICAgICAgICAgIC AgICAgICAgICAgICAgICAgICAgICAgICAgICAgICAg ICAgICAgICAgICAgICAgICAgICAgICAgICAgICAgICAgICAgICAgICAgICAgICAgICAgICAgICAgDQog ICAgICAgICAgICAgICAgICAgICAgICAgICAgICAgICAgICAgICAgICAgICAgICAgICAgICAgICAgICAg ICAgICAgICAgICAgICAgICAgICAgICAgICAgICAgIC AgICAgICAgDQogICAgICAgICAgICAgICAgICAgICAgICAgICAgICAgICAgICAgICAgICAgICAgICAgIC AgICAgICAgICAgICAgICAgICAgICAgICAgICAgICAgICAgICAgICAgICAgICAgICAgDQogICAgICAgIC AgICAgICAgICAgICAgICAgICAgICAgICAgICAgICAg ICAgICAgICAgICAgICAgICAgICAgICAgICAgICAgICAgICAgICAgICAgICAgICAgICAgICAgICAgICAg DQogICAgICAgICAgICAgICAgICAgICAgICAgICAgICAgICAgICAgICAgICAgICAgICAgICAgICAgICAg ICAgICAgICAgICAgICAgICAgICAgICAgICAgICAgIC AgICAgICAgICAgDQogICAgICAgICAgICAgICAgICAgICAgICAgICAgICAgICAgICAgICAgICAgICAgIC EiLXVeQCAdUKBdFMKuUCFpCRTwMNKeUHPjYLYxTNVyLBStPHKnQIVsTWIlGQHnFNWsPVSkEFr8V4qtDX WcBCPuFE4aELm7Hz1+QTtRBqHoLUO7wgNirA5ODI1z e3EuNZgeYNIdh3QxCZq3IT2KMORhVGdzUF4LUHxfnc6NESBwUVJolFNKq1nhHtDlALK2TQZwBqrbVC8F ZUVkU4aelyYiXIWcQYGSWSarLWTGWGwlEKYFHGTbMOMfKsXoJkUwNWRtEWJqUPZWRVY5BZJxPzCgYIad UK2Rh0LfrZM6WEe+Tk9JNZ2rb3KaKRaiIrKyRK0bli 8KNNpTPdAaS8LtktN4CMG8MHNaOw5LBHWyGKWumTEiVHGmBUWLVtSiF5GtyQ80ZRFHDw0+DQplbmRvYm uTJxZ6IXFnx4MrLGg6OY5MIKDyFBn2xUVgJHSQDBK7QZCpkfQ2XRAbNQ1kCNPQLvGQVLI5WYZmJnspGa QsJEHrCjv7HFCVIRmLWhJcJ3Sdx2ErLsK3JTFhLcMo XOzyNUZnVfK0EU11gMofZX4LFKIbAVCvOW39VQF5VOKmQk5IIb3ZJnMaNX6dvz1UGjyoMDWkLxmTNhq1 YBkrWR0CzDIrU5HikCFzc9sJSoIeD1BXQDO5IRZtQr8DMEUcNvZvWGCiDIauDS7fMFJqDDGBwMyazsY9 FZ1UJZ4hboInRA2VFvSpIm2rJx8BRpPpT6EnO6UwNN NoGCFMVIdgYY6ZISuaMX5eQP7Om2QToKRqmN8chj9ROICdXLRnEgrlsh7SJowbJ7H3bXcmQZJxNeuuUH FBVGciXS5OJZHuJWC0VZEpBtEuYMZBOjVgU48wXO4JV2Hcl95vEtK7JERxDqIvEZckNJ31oIoqtbSucC ThmEtiYW4KGy3+DQplbmRvYmoNCnhyZWYNCjAgNDAN EzZfABQwYSBdRXRuTlG2IhLmPw6PQGWlLCAaRFIdAdJdMYVqFJTwIWhkVKVyNPSdBvE8AURoQGRxVI8I NdIqFUIwNQV3FYKnQIZbHGEadk6JQPJrRJQcVHJ1RyLyUQBfSENbGLceMSGhESI3VfYxPKVmJHArMG7D VcTvOZCmMNK4XFLfXVLxRQHhio0DDEDkRKExXuevNH FiPBApHZKiXZpdNWMbRCM7QKXsODAnPFJvDR3WZqIyABYkWGYxFUUzWHYbMMEmht0YOLAsTSTwJsV9BL XsGMSuHXCaAJnvBDPiBTZ9UbGmXHUlEGNvIR3ESvHuJBShHBD9VeydBAJcCOTuzs8KDCGxJNOgAXy3XQ MwGXXqTBCrFRqrYZRyFYBtEEuqZMDxOZFlZM5RMvWq ZHGuOdK8ToFzPRMyWYLbkl4SRTHpEPGmTtqqUrAvAJCxAKFxNQdzQHZwHHT0UFBtZUFuXNVhPW8PWhJu PLZwDtIiTPLdJAUkCTKiik7XWUIqCOHlNtEsHsQqXTRjBYRbWQfvENTzBIQ6YhCpIDOeYSMyZG6RJeWe NLYxPkynDAJcBKRlGTGtix9CQMJeFPSxUEV6OJWmRF EtBCZzVWnhYDRcLNS6NLI1UHYzZQPdKT4JSmNpGKUtWyg3ZrYnPCLpLPEhda3FREUxZQXfPPY8BLHxZS QpALQkLKlxZRMtGTJ5LZhkEGAhUPGaEY1XAnVoQOHuWbNyVtErAFRxVZSrip2UBGGjRSI4OCC3RLDlFX UcCLHmWFnwIKUdBDRtMqo4TYNbCLVjDD3GVbIkHTAx NXF9MPqmZZFyLSHtqc9VDIQnARO2OiMvVmFaFUFfQGGxCRtjBCMkZDGgNirjRQYbHYVgYZ4VVcNoHPDu YJVgQKAzZUBcBEQfgh2ZXGLrLXP7MzXaPYZkNUCdAIGtTBkgAMGdXYTzDdmmWGEfSBShRF9GXeYfJOYq ELYaXEArDQFgSKZbbc6SCMFtSKU4NIZ2JyPiZXHvQV UqDSwvRCJhVZU8JsV4XNDeMQRlPE9MJbXfCXSqYLR6MZVzMECkCJKxua5QpWFwnKfxsz5MHGkZMp5BfD sbDDQzECewHb3iiAHkNZQnRMMXXa7UflBsYTNdJJPIBCsjPEJkTJGsCIWsFBBrZiZnNUZsOin7HFmyCX uqZKN8DejuCHQ2UqE1ZtP8RfP9YgUuS1LuCRD7Wkp6 MDViYRG5WrA0QFTeHmm+LC6rYOl+Fl4Pz2AaapN8lpFoUUd3OyR7LX9DAOHTU9ZQIi== ID Date Data Source [id number] 09/13/2020 04:39:[address] [facility] Name Value Range Interpretation Code Description Data Sanjuana rce(s) Supporting Document(s) Glucose [Mass/volume] in Capillary blood by Glucometer 240 mg/dL 70- 140 H [facility] ID Date Data Source [id number] 09/13/2020 03:42:30 PM [facility] Name Value Range Interpretation Code Description Data Sanjuana rce(s) Supporting Document(s) Glucose [Mass/volume] in Capillary blood by Glucometer 330 mg/dL 70- 140 H [facility] ID Date Data Source [id number] 09/13/2020 11:33:00 AM EST [facility] Name Value Range Interpretation Code Description Data Sanjuana rce(s) Supporting Document(s) SARS-CoV-2 RNA 2019 nCoV Real-Time RT-PCR: NOT DETECTED [facility] This lab was ordered by [facility] and reported by [facility]. ID Date Data Source [id number] 09/14/2020 12:36:58 PM [facility] Value Range Interpretation Code Description Data Sanjuana rce(s) Supporting Document(s) SARS coronavirus 2 IgG Ab [Presence] in Serum or Plasma by I mmunoassay Negative [facility] Positive results indicate thatantibodies of SARS-CoV-2 weredetected and the individualhas potentially been exposedto COVID-19. The assay is intented for use asan aid in identifying immune response to SARS-CoV-2 virus.Testing is performed using the[employer] Appeals Representative SARS-CoV-2 IgG assay for use under [facility]'s Emergency UseAuthorization (EUA) to allow forrapid response during a declaredpublic health emergency. Thisassay has been validated by theDepartment of Pathology [facility].Additional information isavailable on the following FDAwebsites for health careproviders and recipients .https://www.fda.gov/media/390977/downloadhttps://www.fda.gov/media/655066/downl oadFor Use under Emergency Use Authorization only. 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 [facility] Patient has symptoms related to condition [facility] When did you start to experience these symptoms [Date and time] [Phen X] [facility] Patient was hospitalized because of this condition [facility] patient was admitted to ICU for condition [facility] Patient resides in a congregate care setting [facility] status [facility] ID Date Data Source [id number] 09/13/2020 07:45:40 AM [facility] Name Value Range Interpretation Code Description Data Sanjuana rce(s) Supporting Document(s) Glucose [Mass/volume] in Capillary blood by Glucometer 251 mg/dL 70- 140 H [facility] ID Date Data Source [id number] 09/13/2020 05:09:30 AM [facility] Name Value Range Interpretation Code Description Data Sanjuana rce(s) Supporting Document(s) Leukocytes [#/volume] in Blood by Automated count 14.2 10*3/uL 4-10 H [facility] Erythrocytes [#/volume] in Blood by Automated count 4.49 10*6/uL 4.6- 6.1 [facility] Hemoglobin [Mass/volume] in Blood 11.6 g/dL 13.5-18 [facility] Hematocrit [Volume Fraction] of Blood by Automated count 35.7 % 4 1-53 [facility] Erythrocyte mean corpuscular volume [Entitic volume] by Auto mated count 79.5 fL 80-96 [facility] Erythrocyte mean corpuscular hemoglobin [Entitic mass] by Automated count 25.9 pg 27-33 [facility] Erythrocyte mean corpuscular hemoglobin concentration [Mass/volume] by Automated count 32.6 g/dL [facility]0-[facility] E[facility] distribution width [Ratio] by Automated count 22.5 % 11.5-14.5 H [facility] Platelets [#/volume] in Blood by Automated count 292 10*3/uL 150-400 [facility] Differential cell count method - Blood [facility] Neutrophils/100 leukocytes in Blood by Automated count 73 % [facility] Lymphocytes/100 leukocytes in Blood by Automated count 17 % [facility] Monocytes/100 leukocytes in Blood by Automated count 8 % [facility] Eosinophils/100 leukocytes in Blood by Automated count 1 % [facility] Basophils/100 leukocytes in Blood by Automated count 1 % [facility] Neutrophils [#/volume] in Blood by Automated count 10.36 10*3/uL 1.8- 7.0 H [facility] Lymphocytes [#/volume] in Blood by Automated count 2.47 10*3/uL 1.2-4 .0 [facility] Monocytes [#/volume] in Blood by Automated count 1.10 10*3/uL 0-0.8 H [facility] Eosinophils [#/volume] in Blood by Automated count 0.20 10*3/uL 0-0.5 [facility] Basophils [#/volume] in Blood by Automated count 0.07 10*3/uL 0-0.2 [facility] Nucleated erythrocytes/100 leukocytes [Ratio] in Blood by Automated count 0 /100{WBCs} 0-0 [facility] ID Date Data Source [id number] 09/13/2020 05:19:[address] [facility] Name Value Range Interpretation Code Description Data Sanjuana rce(s) Supporting Document(s) Albumin [Mass/volume] in Serum or Plasma by Bromocresol green (BCG) dye binding method 3.1 g/dL [facility].5[facility]2 [facility] Bilirubin.total [Mass/volume] in Serum or Plasma 0.3 mg/dL <1.2 [facility] Calcium [Mass/volume] in Serum or Plasma 8.7 mg/dL 8.8-10.2 L [facility] Chloride [Moles/volume] in Serum or Plasma 103 mmol/L 98-107 [facility] Creatinine [Mass/volume] in Serum or Plasma 0.59 mg/dL 0.70-1.20 L [facility] Glucose [Mass/volume] in Serum or Plasma 214 mg/dL 70-140 H [facility] Alkaline phosphatase [Enzymatic activity/volume] in Serum or Plasma 61 U/L 40-129 [facility] Potassium [Moles/volume] in Serum or Plasma 3.9 mmol/L 3.4-5.1 [facility] Protein [Mass/volume] in Serum or Plasma 5.7 g/dL 6.4-8.3 L [facility] Sodium [Moles/volume] in Serum or Plasma 138 mmol/L 136-145 [facility] Aspartate aminotransferase [Enzymatic activity/volume] in Serum or Plasma 14 U/L <40 [facility] Urea nitrogen [Mass/volume] in Serum or Plasma 14 mg/dL 8-23 [facility] Osmolality of Serum or Plasma by calculation 293 mosm/kg 275-300 [facility] Creatinine/Urea nitrogen [Mass Ratio] in Serum or Plasma 24 [facility] Bicarbonate [Moles/volume] in Serum 25 mmol/L 22-29 [facility] Alanine aminotransferase [Enzymatic activity/volume] in Seru m or Plasma 15 U/L <41 [facility] Anion gap 3 in Serum or Plasma 10 mmol/L 8-15 [facility] Glomerular filtration rate/1.73 sq M pre dicted among non-blacks [Volume Rate/Area] in Serum or Plasma by Creatinine-based formula (MDRD) >6 0 [facility] Glomerular filtration rate/1.73 sq M pre dicted among blacks [Volume Rate/Area] in Serum or Plasma by Creatinine-based formula (MDRD) >60 [facility] ID Date Data Source [id number] 09/13/2020 05:19:17 AM [facility] Value Range Interpretation Code Description Data Sanjuana rce(s) Supporting Document(s) Phosphate [Mass/volume] in Serum or Plasma 3.3 mg/dL 2.5-4.5 [facility] ID Date Data Source [id number] 09/13/2020 05:19:17 AM [facility] Value Range Interpretation Code Description Data Sanjuana rce(s) Supporting Document(s) Magnesium [Mass/volume] in Serum or Plasma 1.6 mg/dL 1.6-2.4 [facility] ID Date Data Source [id number] 09/12/2020 09:36:36 PM [facility] Value Range Interpretation Code Description Data Sanjuana rce(s) Supporting Document(s) Glucose [Mass/volume] in Capillary blood by Glucometer 179 mg/dL 70- 140 H [facility] ID Date Data Source [id number] 09/12/2020 04:38:57 PM [facility] Value Range Interpretation Code Description Data Sanjuana rce(s) Supporting Document(s) Glucose [Mass/volume] in Capillary blood by Glucometer 161 mg/dL 70- 140 H [facility] ID Date Data Source [id number] 09/12/2020 12:36:[address] [facility] Name Value Range Interpretation Code Description Data Sanjuana rce(s) Supporting Document(s) [facility] LAAGNo8uNqBGYkXd59/GGZpuCPOzl2LaJTfaAKg0KHavGQZwG0DmXKD4rH7jDIU1NKaWOuFtLyVvTgL3 lbm [file] iB4XTGgHwBAoG5dieB3wlX70hg+4P/zqcF/URqkwNen2mVm2eN/NnGoO9g2fOfK4g1C+moisés/BvO/x33IX [file] ICAgICAgICAgICAgICAgICAgICAgICAgICAgICAgIC AgICAgICAgICAgICAgICAgICAgICAgICAgICAgICAgICAgICAgICAgICAgICAgICAgICAgICAgICAgIC AgICANCiAgICAgICAgICAgICAgICAgICAgICAgICAgICAgICAgICAgICAgICAgICAgICAgICAgICAgIC AgICAgICAgICAgICAgICAgICAgICAgICAgICAgICAg ICAgICAgICAgICAgICANCiAgICAgICAgICAgICAgICAgICAgICAgICAgICAgICAgICAgICAgICAgICAg ICAgICAgICAgICAgICAgICAgICAgICAgICAgICAgICAgICAgICAgICAgICAgICAgICAgICAgICANCiAg ICAgICAgICAgICAgICAgICAgICAgICAgICAgICAgIC AgICAgICAgICAgICAgICAgICAgICAgICAgICAgICAgICAgICAgICAgICAgICAgICAgICAgICAgICAgIC AgICAgICANCiAgICAgICAgICAgICAgICAgICAgICAgICAgICAgICAgICAgICAgICAgICAgICAgICAgIC AgICAgICAgICAgICAgICAgICAgICAgICAgICAgICAg ICAgICAgICAgICAgICAgICANCiAgICAgICAgICAgICAgICAgICAgICAgICAgICAgICAgICAgICAgICAg ICAgICAgICAgICAgICAgICAgICAgICAgICAgICAgICAgICAgICAgICAgICAgICAgICAgICAgICAgICAN CiAgICAgICAgICAgICAgICAgICAgICAgICAgICAgIC AgICAgICAgICAgICAgICAgICAgICAgICAgICAgICAgICAgICAgICAgICAgICAgICAgICAgICAgICAgIC AgICAgICAgICANCiAgICAgICAgICAgICAgICAgICAgICAgICAgICAgICAgICAgICAgICAgICAgICAgIC AgICAgICAgICAgICAgICAgICAgICAgICAgICAgICAg ICAgICAgICAgICAgICAgICAgICANCiAgICAgICAgICAgICAgICAgICAgICAgICAgICAgICAgICAgICAg ICAgICAgICAgICAgICAgICAgICAgICAgICAgICAgICAgICAgICAgICAgICAgICAgICAgICAgICAgICAg ICANCiAgICAgICAgICAgICAgICAgICAgICAgICAgIC AgICAgICAgICAgICAgICAgICAgICAgICAgICAgICAgICAgICAgICAgICAgICAgICAgICAgICAgICAgIC AgICAgICAgICAgICANCjw/dOUzJ7rnoCWjniD4F1diUb4IBo5EUV3ar0AvJRHpACeddkPdUvgOZuXwPV GeDmrXKsm8PYgqFA3XqMBkE3JeR9RnXGxwVE4ETSQd UEAemUJlWVCpYUXqJxM4FVUdXApmPO3FzCQaKLydNHZxRXIfJgQiKBGpJZNjUZKuCPUtUUQRSPRtRANm PjKyQFXgMMJiEKrvXTTQIUG5CMYzRyHiXMZvRJDkHtQtMJQOGF2TUbRbR8VkiA33MEArTCt+Tf4QCB1u b3YtLUo7NdMhME9wrs7RTBnEBtDrR1MvccQ2PTR4IM BaQf4JTSKvJDYokED0VPGvXAFQZnJzG3PrgQ04ZDAPUe5+KCigtfUbBckEUrR9JBUpq7XjVHq5NP0BYL DhPEw2nFUfK90xo4YiaLWzMpnhE9BtyIRVLJ9bTQGQBNYwhBIdEmK7TfDwFiRsSAR6NABzFP0kEJenVK 7HNLQ6XKqvDRCtNARvB4pFHwJuFVCtCxWoqIasZX7W VrWjF0ZahiTzwWU0SySuJNPSZg2+YXdjtfPpNwxHAfF2JKTxt3KzIAb7XN3DOAEnSAlyZO0BLSJtsF3h XIblEO9NUyV3IPHrMNVMBaCaS57ztSWhYYf2K0JaQwNkUAWiZzeiFGFjAKlfFiEeSFCfBwHqLNkyNK3+ ID4+YYnqUV6SHAevfnVaQAZsGu0PSZNvVATtNT6sJZ TwRZUhI8T2kScpIHKYYjGnZ5xrgrkgVN3xJTPaH335ySdrfdYtDSAqZEOvNo3PTXGgFKO2JRBcqLAmTB KdWSPBZEvhTS4PsXJjSLY3wW7oGGquMVOnCBIuA9vAWaKhuPwyRC50kWrovnHhiKItYYc+Xy9BYI0qu3 ByQWq2qgOmWFidOHQ0TQauUMMvXGBzJVUbPUF1PEC6 DAGIAfDeIUSlFASySDmyRRYbHAVqep0ATZWmEUL0ONnqITVwFQZhMYMlOGhiWSHyTHAcRKO4BBTcXIOz ZB2PRjRnAHLcRAGwUByfLSRnDLKglb7UVVYiGCGsQhd8PvFuZNUaRERrMNmtQSPpQQOnIHD8JXCjQMKn ZN8MBfGtAAMiGBL0TeOeYPElJBFiwt0ZGPYrFAPjPe ZuMSZhIJBqLAIqBAvzPQNdFRZnGombSKUpHYCnPL9BFhMtHQKwMTT1OUZoWDTpUDVgty4IVEQzVPCfGT V9HCGoUERtRWIqEXvyYRYeFAO7AEB3DCVaAFLtWR5HFpAhJRFsVNuhEfkpEWJqJDNfsc3AMJTtHMGtDR X7YKBeSQMlOVFhMLhkOSRkBEJbOXE2TFFcTSTdHU8A NsIyNWBkPdUyZLPsBKMoDHZoen8JZWIgTWBdCgQ2BgNaCXSaLBLkXLcbYXLxOFQdNml0ZQSdYYMuQZ3U KzShIUHdVzB0BZVvGSHhOXHjdv5FUOHzVYDhBoO7KeEzTDSuKIPlTXmiYHKtXKI8VzY2DVHiJVJyVV3H CbDbWEBgIbj2UMWpZZEkOIDelf9FFKHeQWNsSQe2EE PhWKSgEHVuKWfqKZSwIDUoOTO4SRRwKQHvZQ1NIdVdCWOfDaXrELlmELLxUEBqlc6NFSYdCCGxRaSiDC HnVKEuXLPbJBdoZTHyQIPcJRd6DSJfJAEvXU2AVuYnAHEgByC4CERgXYNrZQKliz3AQFWvGIShLaI9NU ZnRASiJTTiVIvvVJZfUDDnBZN9TQGzYVEsAR0EPxNh YEWtHmO2FROrRQGgMEOhgt2RZQMqAMUpZCQmBzGfEJHhOWEmQNwyHXPgQQW4RYb4ARSuCABaOV1MUlQl FJZuMJH8OtXyEHErNTDgjm4ANBYyBPG2Ukz3MDGfQKIrRLNnHZaxEGQeYMP8OOx4AMSbCCMdOL2TPaCh NXZdCTcdKlytKUUeTFRgsa5KZGIpZGW5IxJ7ExWxIA DaDKVcVCjxXHCaBTW8QYA2GWZiHVTvEU8WFzCxWOThXCn8AMBpRHGgZSRrtf0QEUHcYCI1IWs0FwBzNA YkLQNfXHsfVUUrDUM7JjW7UPOfYLVnNA8VMzEwRCFnDDW3MrXkFJPxXCMywy8NQKKdQJQ7GMi9ZpGzTZ JwKVGgVSqsGMNvLUTyJAD5ABDmFVSaWQ5CNuJpWVgw PZBGNko2XBgeR7j6SMQ8Yn9WZ2Kql0HrWCJgVQQBKCopFQ3oudIcXZPyPe6UY3xGLvjhHZB0TDS7KPK9 BUJ4YFOlGVGgGWFdNxPkTubuZeKbGW3sAUXaHwErPaIuCcShVyO2WnK4T5U1NVFcYNZwZAKqJTVzXnEf FS3QOz5CGlQ6GPT3zYJkGl5EADMyYdfLQpKiBF6GNOe= ID Date Data Source [id number] 09/12/2020 11:46:23 AM [facility] Name Value Range Interpretation Code Description Data Sanjuana rce(s) Supporting Document(s) Glucose [Mass/volume] in Capillary blood by Glucometer 195 mg/dL 70- 140 H [facility] ID Date Data Source [id number] 09/13/2020 12:41:40 PM [facility] Service Cmnt XXX-Imp : NoneMicroorganism XXX Cult : 50,000 col/mlCandida albicans Name Value Range Interpretation Code Description Data Sanjuana rce(s) Supporting Document(s) ID Date Data Source [id number] 09/12/2020 10:58:41 AM [facility] Name Value Range Interpretation Code Description Data Sanjuana rce(s) Supporting Document(s) Bicarbonate [Moles/volume] in Serum 23 mmol/L 22-29 [facility] Chloride [Moles/volume] in Serum or Plasma 103 mmol/L 98-107 [facility] Creatinine [Mass/volume] in Serum or Plasma 0.78 mg/dL 0.70-1.20 [facility] Glucose [Mass/volume] in Serum or Plasma 228 mg/dL 70-140 H [facility] Potassium [Moles/volume] in Serum or Plasma 3.5 mmol/L 3.4-5.1 [facility] Sodium [Moles/volume] in Serum or Plasma 137 mmol/L 136-145 [facility] Urea nitrogen [Mass/volume] in Serum or Plasma 18 mg/dL 8-23 [facility] Anion gap 3 in Serum or Plasma 11 mmol/L 8-15 [facility] Osmolality of Serum or Plasma by calculation 293 mosm/kg 275-300 [facility] Creatinine/Urea nitrogen [Mass Ratio] in Serum or Plasma 23 [facility] Calcium [Mass/volume] in Serum or Plasma 8.5 mg/dL 8.8-10.2 [facility] Glomerular filtration rate/1.73 sq M pre dicted among non-blacks [Volume Rate/Area] in Serum or Plasma by Creatinine-based formula (MDRD) >6 0 [facility] Glomerular filtration rate/1.73 sq M pre dicted among blacks [Volume Rate/Area] in Serum or Plasma by Creatinine-based formula (MDRD) >60 [facility] ID Date Data Source [id number] 09/12/2020 12:00:[address] [facility] Name Value Range Interpretation Code Description Data Sanjuana rce(s) Supporting Document(s) Leukocytes [#/volume] in Blood by Automated count 17.2 10*3/uL 4-10 H [facility] Erythrocytes [#/volume] in Blood by Automated count 4.60 10*6/uL 4.6- 6.1 [facility] Hemoglobin [Mass/volume] in Blood 11.6 g/dL 13.5-18 L [facility] Hematocrit [Volume Fraction] of Blood by Automated count 36.6 % 4 1-53 L [facility] Erythrocyte mean corpuscular volume [Entitic volume] by Auto mated count 79.5 fL 80-96 [facility] Erythrocyte mean corpuscular hemoglobin [Entitic mass] by Automated count 25.2 pg 27-33 [facility] Erythrocyte mean corpuscular hemoglobin concentration [Mass/volume] by Automated count 31.6 g/dL 32.0-[facility].0 [facility] E[facility]th[facility] distribution width [Ratio] by Automated count 22.3 % 11.5-14.5 H [facility] Platelets [#/volume] in Blood by Automated count 325 10*3/uL 150-400 [facility] Differential cell count method - Blood [facility] Neutrophils/100 leukocytes in Blood by Automated count 76 % [facility] Lymphocytes/100 leukocytes in Blood by Automated count 15 % [facility] Monocytes/100 leukocytes in Blood by Automated count 4 % [facility] Eosinophils/100 leukocytes in Blood by Automated count 1 % [facility] Basophils/100 leukocytes in Blood by Automated count 1 % [facility] Neutrophils [#/volume] in Blood by Automated count 13.18 10*3/uL 1.8- 7.0 H [facility] Lymphocytes [#/volume] in Blood by Automated count 2.58 10*3/uL 1.2-4 .0 [facility] Monocytes [#/volume] in Blood by Automated count 0.64 10*3/uL 0-0.8 [facility] Eosinophils [#/volume] in Blood by Automated count 0.15 10*3/uL 0-0.5 [facility] Basophils [#/volume] in Blood by Automated count 0.15 10*3/uL 0-0.2 [facility] Band form neutrophils/100 leukocytes in Blood by Manual count 1 % [facility] Myelocytes/100 leukocytes in Blood by Manual count 1 % [facility] Metamyelocytes/100 leukocytes in Blood by Manual count 1 % [facility] Band form neutrophils [#/volume] in Blood by Manual count 0.15 10*3 /uL 0-0.6 [facility] Myelocytes [#/volume] in Blood by Manual count 0.15 10*3/uL 0-0 H [facility] Metamyelocytes [#/volume] in Blood by Manual count 0.15 10*3/uL 0-0 H [facility] Anisocytosis [Presence] in Blood by Light microscopy [facility] Microcytes [Presence] in Blood by Light microscopy [facility] ID Date Data Source [id number] 09/12/2020 10:46:23 AM EST [facility] Name Value Range Interpretation Code Description Data Sanjuana rce(s) Supporting Document(s) Color of Urine [facility] Clarity of Urine [facility] Specific gravity of Urine by Refractometry automated 1.029 1.003 -1.030 [facility] pH of Urine by Automated test strip 5.0 5.0-8.0 [facility] Protein [Mass/volume] in Urine by Automated test strip 100 mg/dL Neg ative A [facility] Glucose [Mass/volume] in Urine by Automated test strip Neg ive [facility] Ketones [Mass/volume] in Urine by Automated test strip Neg [facility] Bilirubin.total [Presence] in Urine by Automated test strip Negative [facility] Hemoglobin [Presence] in Urine by Automated test strip Neg ative [facility] Leukocyte esterase [Presence] in Urine by Automated test strip Negative [facility] Nitrite [Presence] in Urine by Automated test strip Negati [facility] Leukocytes [#/area] in Urine sediment by Automated count 413 /HPF 0 -5 H [facility] Erythrocytes [#/area] in Urine sediment by Automated count 37 /HPF 0-3 H [facility] Leukocyte clumps [#/area] in Urine sediment by Automated count None [facility] Yeast.budding [#/area] in Urine sediment by Microscopy high kojo r field None [facility] Mucus [#/area] in Urine sediment by Microscopy low power field None [facility] Crystals.amorphous [#/area] in Urine sediment by Microscopy high power field None [facility] ID Date Data Source [id number] 09/12/2020 08:07:37 AM [facility] Name Value Range Interpretation Code Description Data [facility] rce(s) Supporting Document(s) Glucose [Mass/volume] in Capillary blood by Glucometer 329 mg/dL 70- 140 [facility] ID Date Data Source [id number] 09/13/2020 08:35:56 AM [facility] Service Cmnt XXX-Imp : NoneMicroorganism XXX Cult : Methicillin resistant Staphylococcus aureus.Isolation precautions required-refer to Infection Control Manual. Name Value Range Interpretation Code Description Data [facility] rce(s) Supporting Document(s) ID Date Data Source [id number] 09/12/2020 04:28:25 AM [facility] XR ABDOMEN AP ABD SUPINE ONLY [id number] RESULTInterpreted by:Eduardo Trejo, MDPROCEDURE INFORMATION: Exam: XR Abdomen Exam date and time: 09/12/2020 3:46 AM Age: 65 years old Clinical indication: Cellulitis of left lower limb; Other: Rigid abdomen, rule out obstruction/perf TECHNIQUE: Imaging protocol: XR of the abdomen. Views: Frontal supine view of the abdomen. 1 View. COMPARISON: CT ABDOMEN PELVIS WITHOUT CONTRAST [id number] 03/04/2019 12:51 PM FINDINGS: Gastrointestinal tract: Dilated loops of small bowel are seen throughout the abdomen. Intraperitoneal space: No free air within limitations of supine technique. Bones/joints: No acute osseous abnormality noting severe degenerative changes of the left hip, as previously. IMPRESSION: Dilated small bowel compatible with ileus or obstruction. 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/xIotlp8TCmptdFogIQjRC6CBgFnQG1stl5MFqRt [file] ICAgICAgICAgICAgICAgICAgICAgICAgICAgICAgICAgICAgICAgICAgICAgICAgICAgICAgICAgICAg ICAgICAgICAgICAgDQogICAgICAgICAgICAgICAgIC AgICAgICAgICAgICAgICAgICAgICAgICAgICAgICAgICAgICAgICAgICAgICAgICAgICAgICAgICAgIC AgICAgICAgICAgICAgICAgICAgICAgDQogICAgICAgICAgICAgICAgICAgICAgICAgICAgICAgICAgIC AgICAgICAgICAgICAgICAgICAgICAgICAgICAgICAg ICAgICAgICAgICAgICAgICAgICAgICAgICAgICAgICAgDQogICAgICAgICAgICAgICAgICAgICAgICAg ICAgICAgICAgICAgICAgICAgICAgICAgICAgICAgICAgICAgICAgICAgICAgICAgICAgICAgICAgICAg ICAgICAgICAgICAgICAgDQogICAgICAgICAgICAgIC AgICAgICAgICAgICAgICAgICAgICAgICAgICAgICAgICAgICAgICAgICAgICAgICAgICAgICAgICAgIC AgICAgICAgICAgICAgICAgICAgICAgICAgDQogICAgICAgICAgICAgICAgICAgICAgICAgICAgICAgIC AgICAgICAgICAgICAgICAgICAgICAgICAgICAgICAg ICAgICAgICAgICAgICAgICAgICAgICAgICAgICAgICAgICAgDQogICAgICAgICAgICAgICAgICAgICAg ICAgICAgICAgICAgICAgICAgICAgICAgICAgICAgICAgICAgICAgICAgICAgICAgICAgICAgICAgICAg ICAgICAgICAgICAgICAgICAgDQogICAgICAgICAgIC AgICAgICAgICAgICAgICAgICAgICAgICAgICAgICAgICAgICAgICAgICAgICAgICAgICAgICAgICAgIC AgICAgICAgICAgICAgICAgICAgICAgICAgICAgDQogICAgICAgICAgICAgICAgICAgICAgICAgICAgIC AgICAgICAgICAgICAgICAgICAgICAgICAgICAgICAg ICAgICAgICAgICAgICAgICAgICAgICAgICAgICAgICAgICAgICAgDQogICAgICAgICAgICAgICAgICAg ICAgICAgICAgICAgICAgICAgICAgICAgICAgICAgICAgICAgICAgICAgICAgICAgICAgICAgICAgICAg IERkWCRxVDBjZFZuGNWjPPAjEAAlPOh4Z6hnIUBtFJ ZwGV9zMFp7Ta1+WBsAFxCuEAP8qdRejA2UGM2oo1ElAFzpGRVxb2HaDVr3BZ7BHKUlYDyxQN2LKUxfdq 4WQATjKIXakTVTe9fkYsQdVBK5BOQiDflcZN3JHTIwI8eyhrMiLZByTCSNGLjnSDTXQQkqBRCVOUJjZU MbOlVcUiXzTCJjQGFhWFADZDB2ABHiUgQoHZQtSCAi BoCpWTDEYIOqGLDrMzZpNXGcRDSkYffmBFXMUIC1FWNaJfZfKIPvTCHnOiAlZLFSLTK3EKWcSxJyWoWp DIWyXK5YJKIcQ737doSbCGmEMk3+FFsvpaTsTxpBTrM5ZDLsn8CqPSs3KI4IPDNbXztte5YzPAksGGNV WVbkFZ5JSNC1QXFfUOPiBs8AKKYsH807vkUcJr2DGl 6UOoVeLJ1nkt9NEKwzQUUfAtaHPse5AIonAX2JpBQsVPnTMDPTnh40rZIvovUCi7IlsiFavJKPHPanin auWMgzEnAedPlfEiPtVWHeTf4dGq9cTJSuUDNlTxD0XFDYLT5OLJKiTFNiuVVvNEIkJNOZWZ4AYOxwKO T9EtVwecRpbPNaXEfyYE9RRRQnlgBdAJukGDPTHHyv UD2OEOr9DUQ7ROJaGk5ORa4NSuUxEN3faa7ETJniARTgZutCQpm2JMzcAX9PxGZlJNtGWMOUvh91iOSw elVWs3NpsoIfpHWXMVfmasnmQXhrXhFfmLazUwAbSKKjRs2vKd4uKAOfYFHmRiP7WTLZEJ0XUIHyLHQi gDUqQTPdROFbRoDoHYozPHRwPfG4YZ50hAilKC4IJB IpGRPhVH95HPY8XWSoEu1SUSFxOTCpqyO3QCKlETSVZyFwG87igYRyIsKgOETJMLe+Pw8EUI4ka8UlFV l5VGMxFK5oyy0IAKtCQySyM4MvgKeaHDUVZGAzsGMwOUKGs3SuzhVdjSDGhTl2OXAesBboQONXIX3hBM KxAGDLLSA9CQErIkCcFwIoIOJxQPvjJCDXYNtLJcTu W5Udt0GzRzSgPjKhJROqL4iZIcLlQPR8XUTimRfcMN0ZZfRwJ1FbrhRgnUX2LnVnKAXGJvUgM3IlJQFe NTkgMCBSDQo+Hr7QIU1ep9OgROi4OIHdEG4nja8QZRcSAwYtT6J3mVCsT4E1TFgnRl8PIBRfHVOtWWGs BBBKILrwSQ6TNZ1suiO2RF5WrBRfVGZcDYPxiTKkQK u4T47eiQGdHRknCJ1EUVN+Rosanne+Up4VBTJtUHXzTNCkKrDuKGVULgBhP5PkR7AAh0XeK3GwAT40pAicvh IeLBxaCN4FLW3mKQGnORHMFC8PqIQwcP3bjjO8MaFmUGBEBpSlR72byKBaTJVlPPU9ECQsKu0MLLLpY0 MuwgNyoGsnpgTdUEWvMTLPWS2LVErludFejKDjfThg RU41rAdrTN4YTi8GUcOiQS5fss2UwLNnFu7AVBU6Yb5PYPKlDKEkRCJjCBS4TWNvLuOmSPsqNMJpRZYq WIY9VJKrDZSnAW2XIjOkAWZbWyVuGDMuUCRzZFScvw7VWTIdLES9Ily7NGBxGFAhAKUuZKbiRBOlREDz JUF3XYTeKGBnYL1NYxBbAHDdIVR5WdJxOAUkLSXvxr 8NVNMwUZKcXtJ6YVKeNGPaXHGpBBpuYYQrYUW0WFGeEHStABBgKD1NTgChNFGbSHS5TJLoGFLfZOQwxw 9EINCvNPQaMONoRuJsXAUvXVAwYEtfPIOnTCUoQsX0FDOmZQHzXE2ESsJoIRNtIKU3YoWrMASjQMSzff 2RGWVzJKJkVeYsOMZyBPVdNDPcGDgvHTWxEGF2QUu9 WNRcBTYaHH3BByMvFNErUFRbDWWzPLXdLDYwfg5FNQGoUYGgUOJ5PnZvAGKbPMLcSRktJJDrEAH2Ixzy NRVeJCCvFP9PTmXlKZPrYiB1HhDoABHnFROkmy4GTFVwQOOcHTmcYdXtQTToOFLdFHnyWLXyLCSqGBHs XSBeOWJmBX7FMoDrJWUwDjMxFNdqMFQnSJRjvs1GNL MyUCCsMbZ6XBMsCPTqDAVpTKotFGCpFYW5FKE1XGYrNCSjAX2QDoPqXSYzKqz8JkFrWQGaCOApmv2EKZ FvKCLaNGElJZIwLLChNZCeFHwtRFGcNYIfFArhMWToCFUyRW5TMuHgHXUnVyJeCFudYZCxGGCkxq8BUZ EgMLWsIrMuAZQhPILlJNLjRTzjOCAdMIL6IAM9IHEs MWUjMO2BGmOoGREyGkg5DeJfQIJuTXVxxl7EEVWuBVPlKQWbSUOfGYDqZSBgJSlqRIRqEKBsMbGcQCRx MWHpPG1GObRmKGSkEXU6ZNJbPKGjCZGtyy3SJFQvDVJ8BwTlFVSiGKCwFDAjQLbgCHBxVABsVrAqJBFs NRRkJX2WQsRdQKHvEJK4OSEiAYPpWVNcnx7XPHIwHJ H4AIB0NNWsCDIkFOJfFUomUXXzBKR4Toy4GMGaQYZlIF2XByQgBVJsMQs2HBCwQRKmGEDfod6MOPEpGW B5NHK7SNDgTJCaZDGsCQdnUNJrAIL8GoQ8AFKgTGYbIX8ZJjCtIZCkKYg3FxUuYALdTYVnuy7BNNPvHO P5AUw9KWRiDCEvINTmWVezALFaPME6MVcrUFDlRNTm AR0UYdOwZMIcMIGkDeyjCFCdXQPtvr0TTUAfQTD5BOE2SQUgVGKgHRTiSLdpDLRuNWNnXCfsABKyVONl YL2IMxHdDNEmGlNgHROkSXUuJQCaoe4VIPJuUKY9AxHjUGQuHPDyRSUpLWptOJYwGIHeLOB5EUTkNPKs PX0BDaIfSBClPgI9RVWyYSEvTCPlep1TGEGgDCY4My D3JTYcFKBoLIUdEHrxWMKsOFKmLnk6YXXrHTXlYL7PGvMcXHUvKwR6FyYfOFOcUHZefx7NATHzHTJ0XM uaWRAlKABhMCOePHuoXYDzEHH7JIeoBYErLXCdAT9NJaVnVPKzFcA4WBMvPSGyQCUbiu6KDUHrTUJ9Di F0YKZmIVMwFWPcOAqqXLYvXEV2OVP4AXJfMLKnWP9O BrSmFNFcIwtgDYDmRDKvTHFmmr5AECDjOPK1CjN6XGPyVVIsURRfQWtyIEHyPXD9TyL3EQBlEQMmEB9H EqWrSEkaUZUGSce7LLnsY6v1KER5Dq1UA8Myi6YvRfBqJRJLQIzqDU6pjbMqPYPtMg4ZX7wOUutdPVK6 UHG6U9T4EJD2PGEaAFAhXfdiQHOiUASoXqXqVZ1zEX JfOHs7JEoqSQA8XWH0UaDmTLE9LWS9NTV8VoGwQmSmAfOsFW7APp7VSwS9SSF1kRMqIa3QBqg8BLAJOj NhMG2HJEj= ID Date Data Source [id number] 09/12/2020 02:26:21 AM [facility] XR TIBIA [id number] RESULTInterpreted by :Eduardo Trejo MDPROCEDURE INFORMATION: Exam: XR Left Tibia and Fibula Exam date and time: 09/12/2020 12:08 AM Age: 65 years old Clinical indication: Pain; Lower leg; Left; Additional info: Infection TECHNIQUE: Imaging protocol: XR Left tibia and fibula. Views: 2 views. COMPARISON: No relevant prior studies available. FINDINGS: Bones/joints: Mild tibiofemoral degenerative changes are noted. No cortical erosions. Soft tissues: No concerning soft tissue abnormality. Vasculature: Extensive vascular calcifications. IMPRESSION: No evidence for osteomyelitis. THIS DOCUMENT HAS BEEN ELECTRONICALLY SIGNED BY EDUARDO TREJO MDThis document has been electronically signed by Eduardo Trejo MD on 09/12/2020 12:55 AM Name Value Range Interpretation Code Description Data Sanjuana rce(s) Supporting Document(s) ID Date Data Source [id number] 09/12/2020 02:26:21 AM [facility] XR ANKLE 3 OR MORE VIEWS [id number] RESU LTInterpreted by:CHEL GoodenROCEDURE INFORMATION: Exam: XR Left Ankle Exam date and time: 09/12/2020 12:08 AM Age: 65 years old Clinical indication: Pain; Ankle; Left; Additional info: Infection TECHNIQUE: Imaging protocol: XR Left ankle. Views: 3 or more views. COMPARISON: No relevant prior studies available. FINDINGS: Bones/joints: No acute fracture or dislocation. No cortical erosions. Charcot arthropathy of the mid and forefoot again noted. Soft tissues: No concerning soft tissue abnormality. IMPRESSION: No evidence for osteomyelitis. THIS DOCUMENT HAS BEEN ELECTRONICALLY SIGNED BY EDUARDO TREJO MDThis document has been electronically signed by Eduardo Trejo MD on 09/12/2020 12:54 AM Name Value Range Interpretation Code Description Data Sanjuana rce(s) Supporting Document(s) ID Date Data Source [id number] 09/12/2020 02:26:21 AM [facility] XR CHEST FRONTAL ONLY [id number] RESULTI nterpreted by:CHEL GoodenROCEDJOSHUA INFORMATION: Exam: XR Chest Exam date and time: 09/12/2020 12:08 AM Age: 65 years old Clinical indication: Chest pain; Additional info: Picc clearance TECHNIQUE: Imaging protocol: XR of the chest Views: 1 view. COMPARISON: CR XR CHEST FRONTAL ONLY [id number] PORTABLE 01/14/2020 10:09 AM FINDINGS: Tubes, catheters and devices: Left-sided PICC terminates in the right atrium. Consider retraction by 3 cm. Lungs: Unremarkable. No consolidation. Pleural spaces: Unremarkable. No pleural effusion. No pneumothorax. Heart/Mediastinum: Unremarkable. No cardiomegaly. Bones/joints: No acute osseous abnormality. IMPRESSION: Left-sided PICC in the right atrium. Consider retraction by 3 cm. THIS DOCUMENT HAS BEEN ELECTRONICALLY SIGNED BY EDUARDO TREJO MDThis document has been electronically signed by Eduardo Trejo MD on 09/12/2020 12:53 AM Name Value Range Interpretation Code Description Data Sanjuana rce(s) Supporting Document(s) ID Date Data Source [id number] 09/12/2020 02:26:21 AM [facility] XR FOOT 3 OR MORE VIEWS [id number] RESUL TInterpreted by:Eduardo Trejo MDPROCEDURE INFORMATION: Exam: XR Left Foot Exam date and time: 09/12/2020 12:04 AM Age: 65 years old Clinical indication: Pain; Foot; Left; Additional info: Infection, elevated wbc TECHNIQUE: Imaging protocol: XR Left foot. Views: 3 or more views. COMPARISON: No relevant prior studies available. FINDINGS: Bones/joints: Pes planus deformity noted. Charge got arthropathy of the mid and forefoot is noted. Left 1st digit has been amputated. No cortical erosions to suggest osteomyelitis. No acute fracture. Soft tissues: No concerning soft tissue abnormality. IMPRESSION: No evidence for osteomyelitis. THIS DOCUMENT HAS BEEN ELECTRONICALLY SIGNED BY EDUARDO TREJO MDThis document has been electronically signed by Eduardo Trejo MD on 09/12/2020 12:52 AM Name Value Range Interpretation Code Description Data Sanjuana rce(s) Supporting Document(s) ID Date Data Source [id number] 09/11/2020 11:35:51 PM [facility] Name Value Range Interpretation Code Description Data Sanjuana rce(s) Supporting Document(s) Sodium [Moles/volume] in Blood 135 mmol/L 136-145 L [facility] Potassium [Moles/volume] in Blood 3.6 mmol/L 3.4-5.1 [facility] Chloride [Moles/volume] in Blood 100 mmol/L 98-107 [facility] Carbon dioxide, total [Moles/volume] in Blood 26 mmol/L 22-29 [facility] Calcium.ionized [Moles/volume] in Blood 1.20 mmol/L 1.13-1.32 [facility] Glucose [Mass/volume] in Blood 392 mg/dL 70-140 H [facility] Urea nitrogen [Mass/volume] in Blood 24 mg/dL 8-23 H [facility] Creatinine [Mass/volume] in Blood 0.6 mg/dL 0.70-1.20 L [facility] Hematocrit [Volume Fraction] of Blood 38 % 41-53 L [facility] Hemoglobin [Mass/volume] in Blood by calculation 12.9 g/dL 13.5-18.0 L [facility] ID Date Data Source [id number] 09/11/2020 11:35:51 PM [facility] Name Value Range Interpretation Code Description Data Sanjuana rce(s) Supporting Document(s) pH of Venous blood 7.39 7.36-7.41 [facility] Carbon dioxide [Partial pressure] in Venous blood 43 mmHg 40-45 [facility] Oxygen [Partial pressure] in Venous blood 32 mmHg [facility] [facility] Base excess standard in Venous blood by calculation 1 mmol/L [facility] Oxygen saturation Calculated from oxygen partial pressure in Venous blood 60 % 60-85 [facility] Lactate [Moles/volume] in Venous blood 1.1 mmol/L 0.5-2.2 [facility] Bicarbonate [Moles/volume] in Venous blood 27 mmol/L [facility] ID Date Data Source [id number] 09/16/2020 07:44:09 AM [facility] Service Cmnt XXX-Imp : UNKNOWNMicroorgan ism XXX Cult : No growth 5 days Name Value Range Interpretation Code Description Data Sanjuana rce(s) Supporting Document(s) ID Date Data Source [id number] 09/16/2020 07:44:09 AM [facility] Cmnt XXX-Imp : UNKNOWNMicroorgan ism XXX Cult : No growth 5 days Name Value Range Interpretation Code Description Data Sanjuana rce(s) Supporting Document(s) ID Date Data Source [id number] 09/11/2020 11:02:00 PM EST [facility] Name Value Range Interpretation Code Description Data Sanjuana rce(s) Supporting Document(s) SARS-CoV-2 RNA 2019 nCoV Real-Time RT-PCR: POSITIVE [facility] This lab was ordered by [facility] and reported by [facility]. ID Date Data Source [id number] 09/12/2020 04:54:50 AM [facility] Name Value Range Interpretation Code Description Data Sanjuana rce(s) Supporting Document(s) Hemoglobin A1c/Hemoglobin.total in Blood by HPLC 8.4 % 4.0-6.0 H [facility] (NOTE)<5.7% Average risk of diabetes (ADA)5.7-6.4% Increased risk of diabetes(ADA)>/= 6.5% Diagnostic for diabetes(ADA) Glucose mean value [Mass/volume] in Blood Estimated fr om glycated hemoglobin 195 mg/dL <126 H [facility] ID Date Data Source [id number] 09/11/2020 11:49:09 PM [facility] Name Value Range Interpretation Code Description Data Sanjuana rce(s) Supporting Document(s) Prothrombin time (PT) 14.5 s 12.5-14.9 [facility] INR in Platelet poor plasma by Coagulation assay 1.11 [facility] Routine intensity oral anticoagulation I NR is typically 2.0-3.0. Target INR must be clinically individualized. ID Date Data Source [id number] 09/11/2020 11:49:09 PM [facility] Value Range Interpretation Code Description Data Sanjuana rce(s) Supporting Document(s) aPTT in Platelet poor plasma by Coagulation assay 29.0 s 24.0-33. 0 [facility] ID Date Data Source [id number] 09/12/2020 12:05:17 AM [facility] Value Range Interpretation Code Description Data Sanjuana rce(s) Supporting Document(s) Bicarbonate [Moles/volume] in Serum 23 mmol/L - [facility] Chloride [Moles/volume] in Serum or Plasma 99 mmol/L 98-107 [facility] Creatinine [Mass/volume] in Serum or Plasma 0.70 mg/dL 0.70-1.20 [facility] Glucose [Mass/volume] in Serum or Plasma 405 mg/dL 70-140 H [facility] Potassium [Moles/volume] in Serum or Plasma 3.7 mmol/L 3.4-5.1 [facility] Sodium [Moles/volume] in Serum or Plasma 132 mmol/L 136-145 L [facility] Urea nitrogen [Mass/volume] in Serum or Plasma 21 mg/dL 8-23 [facility] Anion gap 3 in Serum or Plasma 10 mmol/L 8-15 [facility] Osmolality of Serum or Plasma by calculation 294 mosm/kg 275-300 [facility] Creatinine/Urea nitrogen [Mass Ratio] in Serum or Plasma 30 [facility] Calcium [Mass/volume] in Serum or Plasma 8.3 mg/dL 8.8-10.2 [facility] Glomerular filtration rate/1.73 sq M pre dicted among non-blacks [Volume Rate/Area] in Serum or Plasma by Creatinine-based formula (MDRD) >6 0 [facility] Glomerular filtration rate/1.73 sq M pre dicted among blacks [Volume Rate/Area] in Serum or Plasma by Creatinine-based formula (MDRD) >60 [facility] ID Date Data Source [id number] 09/12/2020 12:35:[address] [facility] Name Value Range Interpretation Code Description Data Sanjuana rce(s) Supporting Document(s) Leukocytes [#/volume] in Blood by Automated count 15.7 10*3/uL 4-10 H [facility] Erythrocytes [#/volume] in Blood by Automated count 4.51 10*6/uL 4.6- 6.1 [facility] Hemoglobin [Mass/volume] in Blood 11.5 g/dL 13.5-18 [facility] Hematocrit [Volume Fraction] of Blood by Automated count 36.1 % 4 1-53 [facility] Erythrocyte mean corpuscular volume [Entitic volume] by Auto mated count 80.0 fL 80-96 [facility] Erythrocyte mean corpuscular hemoglobin [Entitic mass] by Automated count 25.4 pg 27-33 [facility] Erythrocyte mean corpuscular hemoglobin concentration [Mass/volume] by Automated count 31.8 g/dL 32.0-[facility].0 [facility] distribution width [Ratio] by Automated count 22.3 % 11.5-14.5 H [facility] Platelets [#/volume] in Blood by Automated count 300 10*3/uL 150-400 [facility] Differential cell count method - Blood [facility] Neutrophils/100 leukocytes in Blood by Automated count 79 % [facility] Lymphocytes/100 leukocytes in Blood by Automated count 14 % [facility] Monocytes/100 leukocytes in Blood by Automated count 3 % [facility] Basophils/100 leukocytes in Blood by Automated count 1 % [facility] Neutrophils [#/volume] in Blood by Automated count 12.50 10*3/uL 1.8- 7.0 H [facility] Lymphocytes [#/volume] in Blood by Automated count 2.18 10*3/uL 1.2-4 .0 [facility] Monocytes [#/volume] in Blood by Automated count 0.44 10*3/uL 0-0.8 [facility] Basophils [#/volume] in Blood by Automated count 0.14 10*3/uL 0-0.2 [facility] Metamyelocytes/100 leukocytes in Blood by Manual count 3 % [facility] Metamyelocytes [#/volume] in Blood by Manual count 0.44 10*3/uL 0-0 H [facility] Anisocytosis [Presence] in Blood by Light microscopy [facility] Poikilocytosis [Presence] in Blood by Light microscopy [facility] ID Date Data Source [id number] 09/12/2020 01:17:52 AM [facility] Value Range Interpretation Code Description Data Sanjuana rce(s) Supporting Document(s) Erythrocyte sedimentation rate 21 mm/hr <20 H [facility] ID Date Data Source [id number] 09/12/2020 01:27:19 AM [facility] Value Range Interpretation Code Description Data Sanjuana rce(s) Supporting Document(s) C reactive protein [Mass/volume] in Serum or Plasma 12.9 mg/L <8.0 H [facility] ID Date Data Source [id number] 09/12/2020 01:27:19 AM [facility] Value Range Interpretation Code Description Data Sanjuana rce(s) Supporting Document(s) Vancomycin [Mass/volume] in Serum or Plasma 16.4 ug/mL [facility] ID Date Data Source [id number] 09/12/2020 12:50:57 AM [facility] Value Range Interpretation Code Description Data Sanjuana rce(s) Supporting Document(s) Specimen source [Identifier] of Unspecified specimen [facility] SARS-CoV-2 RNA 2019 nCoV Real-Time RT-PCR: NOT DETECTED A [facility] Assay Performed [facility] Patients first test for [facility] 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 [facility] Patient has symptoms related to [facility] When did you start to experience these symptoms [Date and time] [Phen X] [facility] Patient was hospitalized because of this condition [facility] patient was admitted to ICU for condition [facility] Patient resides in a congregate care setting [facility] status [facility] ID Date Data Source [id number] 09/12/2020 12:50:24 AM [facility] Service Cmnt XXX-Imp : NoneRespiratory P CR Panel : PCR ResultsMicroorganism XXX Cult : See Labs Tab for 2019 nCoV RT-PCR resultsHAdV DNA QI DOMINICK+non-probe : Not DetectedHCoV [id number] Nph QI DOMINICK+non-probe : Not DetectedHCoV [id number] Nph QI DOMINICK+non-probe : Not [id number] RNA Nph QI DOMNIICK+non-probe : Not [id number] RNA Upper resp QI DOMINICK+probe : Not DetectedhMPV RNA Nph QINAA+non-probe : Not DetectedRV+EV RNA Nph QI DOMINICK+non-probe : Not DetectedFLUAV RNA Nph QI DOMINICK+ non-probe : Not DetectedFLUBV RNA Nph QI DOMINICK+non-probe : Not DetectedHPIV1 RNA NphQINAA+non-probe : Not DetectedHPIV2 RNA Nph QINAA+non-probe : Not DetectedHPVI3 RNA Nph DOMINICK+non-probe : Not DetectedHPIV4 RNA Nph Q DOMINICK+non-probe : Not DetectedRSV RNA Nph Q DOMINICK+non-probe : Not DetectedB pert.PT PrmtNph Q DOMINICK+non-probe : Not DetectedC pneum DNA Nph Q DOMINICK+non-probe : Not DetectedM pneum DNA Nph Q DOMINICK+non-probe : Not DetectedB [id number] DNA Nph DOMINICK+non-probe : Not Detected Name Value Range Interpretation Code Description Data Sanjuana rce(s) Supporting Document(s) ID Date Data Source [id number] 09/12/2020 12:08:33 AM [facility] Name Value Range Interpretation Code Description Data Sanjuana rce(s) Supporting Document(s) ABO and Rh group [Type] in Blood [facility] Blood group antibody screen [Presence] in Serum or Plasma [facility] Blood bank comment [facility] ID Date Data Source [id number] 09/13/2020 09:51:00 AM [facility] Yeast cells50,000-100,000 colonies/mlThe above 2 analytes were performed by [place] [id number], ,[place] [address] Name Value Range Interpretation Code Description Data Sanjuana rce(s) Supporting Document(s) ID Date Data Source [id number] 09/11/2020 06:03:00 PM EST [facility] Name Value Range Interpretation Code Description Data Sanjuana rce(s) Supporting Document(s) Urine Color Light-Yellow Light-Yellow,Yellow Normal (appl ies to non-numeric results) [facility] Urine Appearance CLEAR CLEAR Normal (applies to non-numeric results) [facility] Urine Specific [place] >1.050 1.015-1.025 Above high normal [facility] Urine pH 6.0 5.0-7.0 Normal (applies to non-numeric resul ts) [facility] Urine Protein 1+ NEG Abnormal (applies to non-numeric results) [facility] Urine Glucose NEG NEG Normal (applies to non-numeric re sults) [facility] Urine Ketone NEG NEG Normal (applies to non-numeric res ults) [facility] Urine Bilirubin NEG NEG Normal (applies to non-numeric results) [facility] Urine Blood 3+ NEG Abnormal (applies to non-numeric re sults) [facility] Urine Urobilinogen NORM <0.2,1.0,<2.0,0.2 Abnormal (a pplies to non-numeric results) [facility] Urine Leukocyte Esterase 2+ NEG Abnormal (applies to n on-numeric results) [facility] Urine Nitrite NEG NEG Normal (applies to non-numeric re sults) [facility] Urine WBC 65 /hpf 0-2 Above high normal [facility] Urine RBC >180 /hpf 0-2 Above high normal [facility] Mucous SLIGHT /lpf NEG,[none] Abnormal (applies to non-numeric re sults) [facility] The above 15 analytes were performed by [facility] [id number], ,[place] [place] [address] ID Date Data Source [id number] 09/11/2020 04:46:47 PM EST [facility] Patient: DIANA OLIVERA : 1955 [facility]ACS [facility] EXTREMITY RIGHT ANGIO W AND WO IV CONTRAST Provider: ADELA MCDOWELLLINICAL HISTORY: The patient is a 65-year-old male with no palpable pulses in the right leg. CTangiography was requested for further evaluation.TECHNIQUE: CT angiography of the lower extremities was performed prior to and postadministration of nonionic intravenous contrast from the iliac crests to thefeet. Three-dimensional reconstruction was generated and reviewed on anindependent workstation. CT imaging was performed utilizing dose reductiontechniques including automated exposure control and iterative reconstructiontechnique. COMPARISON:Arterial duplex sonography of the right lower extremity performed earlier today.FINDINGS: Vascular findings:The distal abdominal aorta demonstrates a normal caliber.There is atherosclerotic disease within both common iliac arteries. There is avascular stent extending from the distal right common iliac artery to the distalright external iliac artery. There is no evidence of an in-stent stenosis. Thenon-stented portions of the right common and external iliac arteries are patent. There is contrast in the right internal iliac artery, which may be flow throughthe interstices of the stent or from retrograde filling. There is a stentextending from the distal left common iliac artery to the distal left externaliliac artery. Similar to the right, there is no evidence of an in-stentstenosis. There is also some contrast in the proximal left internal iliacartery, which is probably from either flow through the interstices of the stentor from retrograde filling. The nonstented sections of the left external andcommon iliac arteries appear patent.Right lower extremity:The right common femoral artery is patent.There is a mild stenosis of less than 50 percent at the origin of the rightprofunda artery.There is a mild stenosis of less than 50 per cent in the proximal rightsuperficial femoral artery. There are scattered areas of atheroscleroticdisease along the right superficial femoral artery with stenoses of up to 50percent along the mid to distal right superficial femoral artery. There is astent in the distal right superficial femoral artery/proximal right poplitealartery. There is no evidence of an in-stent stenosis.The distal right popliteal artery is patent.There is contrast opacifying the proximal aspects of the right anterior tibialartery and the right peroneal artery. There is contrast opacifying the proximaland mid aspects of the right posterior tibial artery. Contrast is not seen inthe distal aspects of the tibial arteries. There is also no contrast in theright dorsalis pedis artery nor the right plantar artery. Arterial blood flowis seen in these arteries on the recently performed arterial duplex sonography. Therefore, this lack of contrast opacification is most likely related totechnique. Underlying stenoses or occlus ions are not excluded, however.Left lower extremity:The left common femoral artery is patent. Any stenoses present are felt to beless than 50 percent.The origin of the left profunda artery is patent.There are mild stenoses of less than 50 percent at the origin of the leftsuperficial femoral artery. There is scattered atherosclerotic disease in theremainder of the left superficial femoral artery, but any stenoses present arefelt to be less than 50 percent. There is a vascular stent extending throughthe distal left superficial femoral artery and proximal left popliteal arterywithout evidence of an in-stent stenosis. The non-stented sections of the leftpopliteal artery appear patent without evidence of hemodynamically significantstenosis nor aneurysm formation.There is a prominent chunk of calcium in the origin of the tibial trifurcation,but contrast is seen beyond this point in all three tibial arteries. The tibialarteries do not opacify their most distal aspects, but this is probably due totechnique.Nonvascular findings:There is a large amount of stool within the colon. There is a 9 cm ball ofstool within the rectum that could be due to fecal impaction. A Wu catheteris present and the urinary bladder is decompressed.The musculature of the lower extremities is atrophic.There are significant degenerative changes in the mid feet and hips. Nodefinite acute fracture is identified.IMPRESSION: CONTRAST IS NOT SEEN IN THE DISTAL TIBIAL ARTERIES, BILATERALLY. THERE WASARTERIAL BLOOD FLOW IN THE RIGHT TIBIAL ARTERIES AND RIGHT DORSALIS PEDIS ARTERYON THE RECENTLY PERFORMED ARTERIAL DUPLEX SONOGRAM OF THE RIGHT LOWER EXTREMITY. THIS LACK OF CONTRAST OPACIFICATION IS PROBABLY DUE TO TECHNIQUE, BUTUNDERLYING STENOSES OR OBSTRUCTION CANNOT BE ENTIRELY EXCLUDED. THERE ARE ARENUMEROUS VASCULAR STENTS. NO SEVERE STENOSIS OF GREATER THAN 50 PERCENT IS SEENIN THE MAJOR ARTERIES OF THE LOWER EXTREMITIES FROM THE COMMON ILIAC ARTERIES TOTHE POPLITEAL ARTERIES, BILATERALLY. PLEASE SEE DISCUSSION FOR COMPLETEDETAILS.9 CM BALL OF STOOL WITHIN THE RECTUM, WHICH COULD BE DUE TO FECAL IMPACTION.THERE IS ATROPHY OF THE LOWER EXTREMITY MUSCULATURE.THERE ARE DEGENERATIVE CHANGES IN THE FEET AND HIPS .Report edited for Rojas Shah MD 09/11/2020 4:34 PM Electronically Signed by Rojas Shah MD 09/11/2020 4:46 PM Name Value Range Interpretation Code Description Data Sanjuana rce(s) Supporting Document(s) ID Date Data Source [id number] 09/11/2020 01:22:23 PM EST [facility] Name Value Range Interpretation Code Description Data Sanjuana rce(s) Supporting Document(s) ED Procedure Note [facility] [id number] lbm [file] [id number] ID Date Data Source [id number] 09/11/2020 01:10:49 PM EST [facility] Patient: DIANA OLIVERA : 1955 [facility]ACS [facility] ARTERIAL LOWER EXTREMITY RIGHT Provider: ADELA Blank right lower extremity arterial duplexClinical History: Cold leg. Covid 19. Technique: Unilateral right lower extremity arterial duplex examination wasperformed. John scale, color doppler and doppler spectral wave form analysis wasperformed bilaterally. Please see accompanying lower extremity arterialworksheet. The abdominal aorta, pelvis, thigh, calf and ankle bilaterally wereevaluated including evaluation of the aorta, side iliac artery, common femoralartery, femoral artery, profunda femoral artery, popliteal artery, posteriortibial artery, anterior tibial artery, and dorsalis pedis artery.Comparison: No previous studies are available for comparison.FINDINGSRight SidePSV(cm/sec) Phasicity Artery WallExternal Iliac 69 Triphasic NormalCFA 83.53 Triphasic NormalProfunda 101 Triphasic NormalSFA Proximal 112.61 Triphasic NormalMid 97.1 Triphasic NormalDistal 108.7 Triphasic NormalPopliteal Proximal 42 Triphasic NormalDistal 45.3 Triphasic NormalDistal 32.6 Triphasic NormalDistal 16.7 Triphasic NormalDorsalis Pedis 14.2 Triphasic NormalPSV of the Aorta is 58cm/s with triphasic flow noted. Right Common Iliac ArteryPSV is 71cm/s. Left Common IliacArtery PSV is 68cm/s.Unable to obtain SHIN"sIMPRESSION: NO MAJOR BRANCH OCCLUSION IDENTIFIED.SHIN COULD NOT BE OBTAINED PER TECHNOLOGIST NOTATION*Diameter Reduction-Peak Systolic Velocity0 To 19% diameter reduction -Triphasic; Less Than Double The Closest ProximalNormal Segment.22 - 49% diameter reduction - Biphasic; Mild Spectral Broadening; < Than DoubleThe Closest Proximal Nml Segment.15 - 99% diameter reduction- Monophasic; Double Proximal Adjacent Segment Or Psv> 200 Cm/Sec.Occlusion diameter reduction - No Flow In The Imaged Artery.Electronically Signed by Regi Ledesma MD 09/11/2020 1:10 PM Name Value Range Interpretation Code Description Data Sanjuana rce(s) Supporting Document(s) ID Date Data Source [id number] 09/11/2020 01:25:00 PM [facility] Name Value Range Interpretation Code Description Data Sanjuana rce(s) Supporting Document(s) BUN, iSTAT 27 mg/dl 7-[address] [facility] Glucose, iSTAT 227 mg/dl 67-93 Above high normal [facility] Ionized Calcium, iSTAT 1.19 mMol/L 1.13-1.32 Normal (a pplies to non-numeric results) [facility] Sodium, iSTAT 135 mEq/L 136-145 Below low normal [facility] Potassium, iSTAT 3.8 mEq/L 3.5-5.1 Normal (applies to non-numeric results) [facility] Chloride, iSTAT 101 mEq/L 98-107 Normal (applies to non-numeric results) [facility] Anion Gap, iSTAT 13 [facility] Creatinine, iSTAT 0.80 mg/dl 0.80-1.30 Normal (applies to non- numeric results) [facility] GFR,iSTAT >60 mL/min/1.73m2 [facility] Hematocrit, iSTAT 39.0 % 42.0-52.0 Below low normal [facility] Hemoglobin, iSTAT 13.3 g/dl 14.0-18.0 Below low normal [facility] TCO2, iSTAT 25.0 mMol/L 22.0-30.0 Normal (applies to non-numeric res ults) [facility] The above 12 analytes were performed by [facility] [id number] [place] [address], ,[place] [id number] ID Date Data Source [id number] 09/11/2020 01:02:28 PM EST [facility] Patient: DIANA OLIVERA : 1955 [facility]ACS [facility] 1 VIEW Provider: ADELA Chavez portable single viewClinical History: Check PICC. ER patientTechnique: AP portable view of the chest was obtained.Comparison: Exam from MRI this monthFINDINGS:THERE IS A LEFT-SIDED PICC PRESENT WITH ITS TIP SEEN DISTALLY PROBABLY OVERLYINGTHE RIGHT ATRIAL REGION. THIS COULD BE WITHDRAWN BY APPROXIMATELY 5 CM CLINICALLY APPROPRIATE.MONITOR LEADS AND DEVICES OVERLIE THE CHEST THERE IS MILD INTERSTITIAL PROMINENCE. THE COSTOPHRENIC ANGLES ARE SHARP.THERE ARE POSTOPERATIVE CHANGES IN THE SPINE.FOLLOWUP PA AND LATERAL RADIOGRAPH OF THE CHEST WHEN POSSIBLE IS RECOMMENDED.Electronically Signed by Regi Ledesma MD 09/11/2020 1:02 PM Name Value Range Interpretation Code Description Data Sanjuana rce(s) Supporting Document(s) ID Date Data Source [id number] 09/11/2020 01:39:00 PM [facility] Name Value Range Interpretation Code Description Data Sanjuana rce(s) Supporting Document(s) CPK (Total) 22 IU/L 39-[address] [facility] The above 1 analytes were performed by [facility] [id number], ,[place] [address] ID Date Data Source [id number] 09/11/2020 01:39:00 PM [facility] Name Value Range Interpretation Code Description Data Sanjuana rce(s) Supporting Document(s) NTproBNP 153 pg/ml 0-125 Above high normal [facility] Acute CHF unlikely if NTproBNP:<125 pg/m L for age <75 years<450 pg/mL for age > or = 75 yearsCHF likely if NTproBNP:>450 pg/mL for age <50 years>900 pg/mL for age 50-75 years>1800 pg/mL for age >75 yearsCHF very likely if NTproBNP:>54963 (regardless of age)The PRIDE study recommends the above cut-off values. It also recognizesa change in a patient's "dry" value of >25% as being an acute episode of HF. Therefore, a return to their"dry" level at a 25% decrease is an indication of a successful intervention.The above 1 analytes [address] [facility] [id number], ,[place] [address] ID Date Data Source [id number] 09/11/2020 01:39:00 PM [facility] Name Value Range Interpretation Code Description Data Sanjuana rce(s) Supporting Document(s) Magnesium 1.8 mg/dl 1.6-2.6 Normal (applies to non-numeric resul ts) [facility] The above 1 analytes were performed by [facility] [id number], ,[place] [address] ID Date Data Source [id number] 09/11/2020 01:39:00 PM EST [facility] Name Value Range Interpretation Code Description Data Sanjuana rce(s) Supporting Document(s) Lipase 168 IU/L 73-393 Normal (applies to non-numeric resul ts) [facility] The above 1 analytes were performed by [facility] [id number], ,[place] [address] ID Date Data Source [id number] 09/11/2020 01:39:00 PM EST [facility] Name Value Range Interpretation Code Description Data Sanjuana rce(s) Supporting Document(s) AST 12 IU/L 15-37 Below low normal [facility] Sulfasalazine and sulfapyridine have the potential to falsely depressAspartate Aminotransferase results. Baseline values before medication administration are recommended. ALT 19 IU/L 16-61 Normal (applies to non-numeric resul ts) [facility] Sulfasalazine and sulfapyridine have the potential to falsely depressAlanine Aminotransferase results. Baseline values before medication administration are recommended. Alkaline Phosphatase 64 mIU/ml 50-136 Normal (applies to non-num awa results) [facility] Total Bilirubin 0.50 mg/dl 0.20-1.00 Normal (applies to non-numeric results) [facility] Blood Urea Nitrogen 29 mg/dl 7-18 Above high normal [facility] Creatinine 0.76 mg/dl 0.67-1.17 Normal (applies to non-numeric resul ts) [facility] N-Acetylcysteine (NAC) and Metamizole villanueva ve the potential to falselydepress Creatinine results. Baseline values before medication adminstration are recommended. Patients undergoing treatment with phenindione will have falselydepressed results. Patients on phenindione therapy should be tested with an alternativeCREA method.Toxic levels of acetaminophen may lead to falsely depressed results forpatient samples. Glomerular Filtration Rate >90.00 mL/min/1.73m2 [facility] GFR Reference Ranges:Normal Function or Mild Renal Disease,if clinically at risk:>or= 60Moderately decreased:30 - 59Severely decreased:15 - 29Renal Failure:<15 Please note that the MDRD equation requires an additional adjustment forAfrican-Americans (multiply the GFR result by 1.210).Glomarular Filtration Rate (GFR) is estimated based on the MDRDequation, which assumes a steady state for creatinine (Yany Int Med 139/2 137-149, 2002), as recommended by the Nationaldney Disease Education Program in conjunction with the National Institutes of Health and the National KidneyFoundation. The Oxford method used in calculating this result is traceable to IDMO standards. Glucose 217 mg/dl 70-110 Above high normal [facility] Sulfasalazine has the potential to false ly depress Glucose results. Sulfapyridine has the potential to falsely elevate Glucose results. Baseline values before medication administration are recommended. Calcium 8.6 mg/dl 8.5-10.1 Normal (applies to non-numeric resul ts) [facility] Total Protein 5.9 g/dl 6.4-8.2 Below low normal [facility] Albumin 2.5 g/dl 3.4-5.0 Below low normal [facility] Sodium 136 mEq/L 136-145 Normal (applies to non-numeric resul ts) [facility] Potassium 3.9 mEq/L 3.5-5.1 Normal (applies to non-numeric resul ts) [facility] Chloride 103.0 mEq/L 98.0-107.0 Normal (applies to non-numeric resu lts) [facility] Anion Gap 12.4 [facility] Carbon Dioxide 24.5 mMol/L 21.0-32.0 Normal (applies to non-numeric results) [facility] The above 16 analytes were performed by [facility] [id number], ,[place] [address] ID Date Data Source [id number] 09/11/2020 01:37:00 PM [facility] Name Value Range Interpretation Code Description Data Sanjuana rce(s) Supporting Document(s) Lactic Acid 0.8 mMol/L 0.4-2.0 Normal (applies to non-numeric resu lts) [facility] The above 1 analytes were performed by [facility] [id number], ,[place] [address] ID Date Data Source [id number] 09/11/2020 01:31:00 PM [facility] Name Value Range Interpretation Code Description Data Sanjuana rce(s) Supporting Document(s) PTT, on Anticoag. Therapy 31.3 Seconds 66.4-93.0 Below low normal [facility] Discrepant results may occur due to anti coagulant effects such asheparin, direct thrombin inhibitors; argatroban (Acova), bivalirudin(Angiomax) or dabigatran (Pradaxa) or direct factor Xa inhibitors;rivaroxaban (Xarelto), apixaban (Eliquis) and edoxaban (Savaysa).The above 1 analytes were performed by [facility] [id number], ,[place] [address] ID Date Data Source [id number] 09/11/2020 01:31:00 PM [facility] Name Value Range Interpretation Code Description Data Sanjuana rce(s) Supporting Document(s) PT,Patient (on Anticoag. Therapy) 15.7 Seconds [facility] Attention: Effeciive 12/11/2019 The nor mal range for PT (on Anticoagulant Therapy) has changed:Previous normal range: 10.1-11.3New normal range: NoneDiscrepant results may occur due to anticoagulant effects such ascoumadin, direct thrombin inhibitors; argatroban (Acova), bivalirudin(Angiomax) or dabigatran (Pradaxa) or direct factor Xa inhibitors;rivaroxaban (Xarelto), apixaban (Eliquis) and edoxaban (Savaysa). INR (on Anticoagulant Therapy) 1.3 2.0-3.5 Below low normal [facility] Suggested therapeutic INR ranges for ora l anticoagulant therapy: Indication:INRPrevention and treatment of DVT and PE2.0 - 3.0Prevention of systemic embolism with atrial fib., acute GA and 2.0 -3.0 tissue prosthetic heart valves.Prevention of systemic embolism in patients with mechanical heart2.5 -3.5 valves.NOTE: The INR is only valid for patients on stable oral anticoagulanttherapy. The above 2 analytes were performed by [facility] [id number], ,[place] [address] ID Date Data Source [id number] 09/11/2020 01:18:00 PM EST [facility] Name Value Range Interpretation Code Description Data Sanjuana rce(s) Supporting Document(s) WBC 19.39 x1000/ul 4.80-10.00 Above high normal [facility] RBC 4.88 x1Mil/ul 4.70-6.10 Normal (applies to non-numeric re sults) [facility] Hemoglobin 12.2 g/dl 14.0-18.0 Below low normal [facility] Hematocrit 39.6 % 42.0-52.0 Below low normal [facility] MCV 81.1 fL 80.0-94.0 Normal (applies to non-numeric resul ts) [facility] MCH 25.0 pg 27.0-31.0 Below low normal [facility] MCHC 30.8 g/dl 32.2-37.0 Below low normal [facility] RDW 20.8 % 11.5-14.5 Above high normal [facility] Platelet Count 353 x1000/ul 130-400 Normal (applies to non-numeric results) [facility] MPV 9.7 fL 9.4-12.4 Normal (applies to non-numeric resul ts) [facility] Neutrophils 74.9 % 40.0-74.0 Above high normal [facility] regis [facility] Lymphocytes 14.1 % 19.0-48.[address] [facility] Monocytes 7.0 % 3.4-9.0 Normal (applies to non-numeric resul ts) [facility] Eosinophils 0.7 % 0.0-7.0 Normal (applies to non-numeric resu lts) [facility] Basophils 0.4 % 0.0-2.0 Normal (applies to non-numeric resul ts) [facility] Immature Granulocytes 2.9 % 0.0-0.5 Above high normal [facility] Nucleated RBCs 0.00 % 0.00-0.20 Normal (applies to non-numeric r esults) [facility] Abs. Neutrophils 14.52 x1000/ul 1.92-8.31 Above high normal [facility] Abs. Lymphocyte 2.74 x1000/ul 1.20-3.70 Normal (applies to non-n umeric results) [facility] Abs. Monocytes 1.36 x1000/ul 0.14-0.97 Above high normal [facility] Abs. Eosinophils 0.14 x1000/ul 0.00-0.76 Normal (applie s to non-numeric results) [facility] Abs. Basophils 0.07 x1000/ul 0.00-0.22 Normal (applies to non-n umeric results) [facility] Abs. Immature Gran. 0.56 x1000/ul 0.00-0.02 Above high normal [facility] Abs. Nucleated RBCs 0.00 x1000/ul 0.00-0.02 Normal (appl ies to non-numeric results) [facility] The above 24 analytes were performed by [facility] [id number], ,[place] [address] ID Date Data Source [id number] 09/11/2020 12:28:16 PM EST [facility] Name Value Range Interpretation Code Description Data Sanjuana rce(s) Supporting Document(s) ED Triage Notes [facility] RAAURu8aAtWAQpFy21/YDKraIHUea3ImDFdzGZu8TCoyJHZmW0DfOYA3xG0gPLA5UZuFDpVkBwJrUyX4 lbm [file] ICAgICAgICAgICAgICAgICAgICAgICAgICAgICAgIC AgICAgICAgICAgICAgICAgICAgICAgICANCiAgICAgICAgICAgICAgICAgICAgICAgICAgICAgICAgIC AgICAgICAgICAgICAgICAgICAgICAgICAgICAgICAgICAgICAgICAgICAgICAgICAgICAgICAgICAgIC AgICAgICANCiAgICAgICAgICAgICAgICAgICAgICAg ICAgICAgICAgICAgICAgICAgICAgICAgICAgICAgICAgICAgICAgICAgICAgICAgICAgICAgICAgICAg ICAgICAgICAgICAgICAgICANCiAgICAgICAgICAgICAgICAgICAgICAgICAgICAgICAgICAgICAgICAg ICAgICAgICAgICAgICAgICAgICAgICAgICAgICAgIC AgICAgICAgICAgICAgICAgICAgICAgICAgICANCiAgICAgICAgICAgICAgICAgICAgICAgICAgICAgIC AgICAgICAgICAgICAgICAgICAgICAgICAgICAgICAgICAgICAgICAgICAgICAgICAgICAgICAgICAgIC AgICAgICAgICANCiAgICAgICAgICAgICAgICAgICAg ICAgICAgICAgICAgICAgICAgICAgICAgICAgICAgICAgICAgICAgICAgICAgICAgICAgICAgICAgICAg ICAgICAgICAgICAgICAgICAgICANCiAgICAgICAgICAgICAgICAgICAgICAgICAgICAgICAgICAgICAg ICAgICAgICAgICAgICAgICAgICAgICAgICAgICAgIC AgICAgICAgICAgICAgICAgICAgICAgICAgICAgICANCiAgICAgICAgICAgICAgICAgICAgICAgICAgIC AgICAgICAgICAgICAgICAgICAgICAgICAgICAgICAgICAgICAgICAgICAgICAgICAgICAgICAgICAgIC AgICAgICAgICAgICANCiAgICAgICAgICAgICAgICAg ICAgICAgICAgICAgICAgICAgICAgICAgICAgICAgICAgICAgICAgICAgICAgICAgICAgICAgICAgICAg ICAgICAgICAgICAgICAgICAgICAgICANCiAgICAgICAgICAgICAgICAgICAgICAgICAgICAgICAgICAg ICAgICAgICAgICAgICAgICAgICAgICAgICAgICAgIC AgICAgICAgICAgICAgICAgICAgICAgICAgICAgICAgICANCjw/nBSgM2fxnZLwsbW4E5rmEr0ADd1GGN 7ft8ToFUKlEOrswtFkYujWXfWpSMEpXofIVdf5ZLmjTJ4DrCXeS2VeM7RqAYugOA0ZKBWdFCXjyRWhEI AlTQUiRaU1HBMhLCrtBZ7UjYPnQZlnIJJyWAFyOP4E SWFhB465lsJdYD2OYm4PJaAzWB4irx0IIVkqVAUlUjkKOqg5TWkqHA0BuYTpgODkAENtTHFRJaVoI6sw n0VuPSycTZVUPPxzLN0Xy7XucGAeJTr+Zy5TTR8ae5GsENwyNTZxST5hhk1JMCcCVoFvQ6OjoYfsQVLN ACUdqAYaOXZEd7CdfxHwpREOpXIinRJgrUPsKETca2 m5GQAYOpImrATaAaV2McLxXoIaYEZ5EYDyLR2cZRzsFQ2USFR7QIzkQDZbLYKbU3dRGyQmOUywFLDhfD vuHT9BHnJyQ1UjxdSfnTReFwGuTIUUDx0+YCtyzlGyQkvXSbL7PFZjn5QeXVi2GU0VSWYbCPzfPP7UEE MhrY6jZPhxGR3FWiSnFGIwSTRLNoAcA18acAMlDMp6 Q0GzYpFiTDQsNkcdDOIdFKdgDfFjDNNcDaRaUUkjLJ0+ID4+CZjvOO2GSFvqbuJiDAIlSv0PFHLiDCWl KY6qJIUaJONfQ0Y0iGpeBGSTDrXzE7asiztcXL6hUIVuQ843tEqwiaRjBHC1UEDvGn4DKCEeFZE5OMYx aEFzZXLoRFQATNggCO1PsURbPZN6vO1iXEuuGONsGG YbP1gNTrPzwAhfXK88jEqaysNlzVUjAUs+Qz2HBZ4rv9HdGNg1ihRaJOzzKLQiCBgmSKBvFENwHGWaTN K8IJF0TUDIWrHnRHEfCMAzLFnkIWTgYKYydl5KWCYqLMKxDGp7CjAqUJMcQLQtTLwvLSSgRQJ8TACsLP ScAZLaIG6HFxDuXCCuBTQvUXewATKrZYNzvf6KBHVe HKAeAMRsOWQfAUHgLTIiKVemRSFoRPFfVgPjBQSuSIIiRR9XRpFtVOEwJAZ7FcUgBMAhQNTsvb8JDFDw MTSwKdh9QgXwRBMaMYNhTNkcYVSjIQWkAWK0PPGcATRdGA2KXxQdHVJrMDCvYLBoWDPoXVYoju0LHIIm IWTlSMUjIlMfGZKkHCZoJIzlIVJqOMP6Yrj6HGMbJG VoLS0RUbDrXEJtTBAxJYNbMBFgIQAygo1MWUQtZEGsJAD1JRAdRTOjKVQpNFlpXZXiAFH8QrR2WHZgVK SxXD2YXuGuJSFuTYJcZbFfHYFtPOHsnw1ZYLJwIIAjInT8QHOaVVZqYRNfGKcvAFUmBEW2TuowRQHuVG YyTH7FSeLgKWKyPEw7UyQfLYAaFJIlaf0ShMPjhOhb uh9LZGdMAp4CtAawSJCkEGneWh3ypWShEIKgPTXSKp9PvaKaZVJlMSFMUUegTJYfHLijHBRxZLTkGMWz YEYhRZzsLwKtYZKfArF9O4FgOfM0EjD9FUS5XqQpFBSwUQJ7OfRtELKbHhM9OqNiHOPxVlJeGgS+IF0g DQo+Vx0Fh7WqehW7wfBzHLx9ODK6BCpvQVHRMl0L ID Date Data Source [id number] 09/11/2020 12:07:00 PM EST [facility] Name Value Range Interpretation Code Description Data Sanjuana rce(s) Supporting Document(s) Glucose, Fingerstick 226 mg/dl 70-110 Above high normal [facility] The above 1 analytes were performed by [facility] [id number] [place] [address],[facility] [id number],[place] [address] ID Date Data Source [id number] 09/09/2020 09:00:00 AM EST [facility] Name Value Range Interpretation Code Description Data Sanjuana rce(s) Supporting Document(s) SARS-CoV-2 (COVID-19) RNA [Presence] in Respiratory specimen by DOMINICK with probe detection Not Detected [facility] This lab was ordered by [facility] and reported by [employer]. ID Date Data Source [id number] 09/08/2020 04:05:26 PM EST [facility] Name Value Range Interpretation Code Description Data Sanjuana rce(s) Supporting Document(s) Care Plan [facility] DVWRYm4iKnJMKhOy68/NYFclGMCcq8InAWrkNEl7RDhvMVAiL4EzODJ1gP7dZEI9XJfVTaLkLdMqDmWc lbm [file] XHH7GTvjAfI4CgLtDF1LRm3IXwD8DYR4pGDpJp3GNwX3FdYUShKjWB2BBVj= ID Date Data Source [id number] 09/08/2020 03:18:47 PM EST [facility] Name Value Range Interpretation Code Description Data Sanjuana rce(s) Supporting Document(s) Care Plan [facility] PSOQWi9eYyCBYnZh01/XLMcvDLEur0SjBAepWZx9GQwiFFZrD6AmDYH8lH9mYSE1OKkXXvVzHvBvOhKf lbm [file] ICAgICAgICAgICAgICAgICAgICAgICAgICAgICAgICAgICAgICAgICAgICAgICAgICAgICAgICAgICAg ICAgICAgICAgICAgICAgICAgICAgICAgDQogICAgIC AgICAgICAgICAgICAgICAgICAgICAgICAgICAgICAgICAgICAgICAgICAgICAgICAgICAgICAgICAgIC AgICAgICAgICAgICAgICAgICAgICAgICAgICAgICAgICAgDQogICAgICAgICAgICAgICAgICAgICAgIC AgICAgICAgICAgICAgICAgICAgICAgICAgICAgICAg ICAgICAgICAgICAgICAgICAgICAgICAgICAgICAgICAgICAgICAgICAgICAgDQogICAgICAgICAgICAg ICAgICAgICAgICAgICAgICAgICAgICAgICAgICAgICAgICAgICAgICAgICAgICAgICAgICAgICAgICAg ICAgICAgICAgICAgICAgICAgICAgICAgICAgDQogIC AgICAgICAgICAgICAgICAgICAgICAgICAgICAgICAgICAgICAgICAgICAgICAgICAgICAgICAgICAgIC AgICAgICAgICAgICAgICAgICAgICAgICAgICAgICAgICAgICAgDQogICAgICAgICAgICAgICAgICAgIC AgICAgICAgICAgICAgICAgICAgICAgICAgICAgICAg ICAgICAgICAgICAgICAgICAgICAgICAgICAgICAgICAgICAgICAgICAgICAgICAgDQogICAgICAgICAg ICAgICAgICAgICAgICAgICAgICAgICAgICAgICAgICAgICAgICAgICAgICAgICAgICAgICAgICAgICAg ICAgICAgICAgICAgICAgICAgICAgICAgICAgICAgDQ ogICAgICAgICAgICAgICAgICAgICAgICAgICAgICAgICAgICAgICAgICAgICAgICAgICAgICAgICAgIC AgICAgICAgICAgICAgICAgICAgICAgICAgICAgICAgICAgICAgICAgDQogICAgICAgICAgICAgICAgIC AgICAgICAgICAgICAgICAgICAgICAgICAgICAgICAg ICAgICAgICAgICAgICAgICAgICAgICAgICAgICAgICAgICAgICAgICAgICAgICAgICAgDQogICAgICAg ICAgICAgICAgICAgICAgICAgICAgICAgICAgICAgICAgICAgICAgICAgICAgICAgICAgICAgICAgICAg ICAgICAgICAgICAgICAgICAgICAgICAgICAgICAgIC BvTDg5X0yxFTTuMCIzZG9nBAb3Zx3+NOwIEwQnGYG9vgGawR0EPI5xy1KlGLjgKPEct3NbUEw9NO4XBD RrHQaaPF1YNXdrmd8LLJDrXKZuiHFLa0eqKtMjUDV2AOCkOfldYZ7NHXFbJ8oaetHrHNDxBTCEHF3LEm McF7XkbQ02URLEJc9+MNylxqRxIdnKNxN4HVEzr2Oi WQf8KO3SWXFyPxccy0IzLrMtMHXTVObbDZ3EFPF0JXY1AZOiVs9PTBOzA348thOiSD9VQc5SUdCtZQ5z uo2FRxDpWXCyQtaVTbm8TUpkGZ3TeARgEJdGYCKhJFYkRI6rXzbcNUYqlq6fBXUKo8rukgIxgmckWQGq RVFgNv6fNk5cUAAwIKQ9VwX3LVORUQ9POZIuYIKqdC MyNUXqWSZWKA4LCFzbDAI9PiyxiaUqiNPhHIbvFA5JHWGfbrMfYiXyQZNXLIr+Ne0JUC5px9ZqOEamPj AdLC8oip3HLClZFhGcY3U2eMQiT7G9DQplAe3WCGVnBJNaDlTlLZFFIIpcZG2FEU4zbiX8AY1HvZVvCN QmTTNlnSFpEJj3L78thKIuNFvxPW7RBEA+Rosanne+Pg0K YQIvKRJaTIVyQsWvHXCHDuGbD2ZiG2FSg8KcO9LdJX58lOdqxkXvFJptTB4WWV6mLQUnMHJNPI4MhNUa nY6zcpIqTSHmOCWHXoAmO68pdCCtZVAzSVV6YUBySx7CJSDiJ0UxmoXgcOphilWzYOVtFBPWTL6GPSuk lvRxeWCdoGwfFT55sWieDO4SPn5VLiDxVN7kid8MdO LmVf9CBJGsBG0EROFhGKHfTSQhRXM8QPCaJzGiRHrcFXTtBAVtZBL9KEVePQEoZA1GSeBbOBIuFCg7Qn YwQWEeZRBqgd1CJCCqDUAaOQjlWCXaEUQfGJFfPAtuYLZoXHCjKLD8FOKfHMAjPQ8AQkGoQVWuTIRxMq RkXHEbMQKmra5NYTOqAHEuGYF0IEWbQKWqVKRcLBol CIGuERIuJoZ9DYZeTRYuZP3ZZvRgPFRdIPL5FlriELCkVVFftt6XQZSuFSMaImpsYMDwBQTlXQWuTZpx JOEvATNqYrorZNDxXOVfAM0IRmWpTRIiMFL0OeRiFPYnQDGhwv2MWQJyAGKgYWG5CfBxYIWxBMUkILla LKAaPLG3EPVeKYMmXOSbTD3EBrQbJMIvONR9ZGyjGY OuCQPjsz4ZMXWwFKLqHizdIrZyTAToJNFtTUhuFQIcEFL3CYN1FAPkHAOdYV0CMzKuJDWrIRkjDZArPA MmWIXxat3WBDLiWMKqYVL0IGBtRMAlWYWfWHzmQICvACG8UELmIGGrRLTwJW7LCzMyTNYwTXf3LiexDZ FbXKHmxv2DGAPyZRKcMZB6BGXqFVKtGVJqDRiaXRFh FLK8SqO1MDMqNYWyOV7BIrNpRCRlQMy4IlmjFZZgSNJhlk5WFAQwHMOeGSB2TZKbWIQqICQrTCbfAFPg UTNaYSG9LFGrCHMmQG3JHtJkMRJaOeJ4AqqsNWUqJUVuxn4WOLWxXZFnIxOjIGWeAMGaBKZsFRc5phWa pQVlAZp2YX3XQ5LmhsTfObsYCt7Ni176ECZ8WSJeLd 0SL7jmGe4iXHTsNPVDIq3ZOGu3LBKyUPO8OFPqWqdkJUOhB9I6YWInKXCtJOu2MoKmCZV+WLi6IsSqMX WvSKB5X8P5LFBcOfZhYTY9VbC3IYpaSMXcRu5wRYYBZr4+SCwbjPJxdSaaSRALEnFsSjL8PCzwADMRDn 0K ID Date Data Source [id number] 09/07/2020 06:41:56 PM EST [facility] Name Value Range Interpretation Code Description Data Sanjuana rce(s) Supporting Document(s) Nursing Note [facility] RTAOZz1tHhWZPaQo92/MOEeaVPWms7ZcODokSXx0GClsWZXbC0WmLGA7cS4kGGE2IJkLSbNqIlLdSmBk lbm [file] ZudzVFTqTw7nDOSAZw8+SAglpQAilPnqTCVPTvluNbXKQwAbYZ8WVUo= ID Date Data Source [id number] 09/07/2020 06:41:46 PM EST [facility] Name Value Range Interpretation Code Description Data Sanjuana rce(s) Supporting Document(s) Nursing Note [facility] XNLJOr1xCaRPVxPo81/OSFkfGCUoo4CuPBdzXWw3ZYtiUIPoZ5TsIPC8nA0vAFA4PUaMUnLwZuBoEvEl lbm [file] ML6wWCb+Pd7Fq8YshdL3upQlHHk5DiDrHEcxACVJTr6T ID Date Data Source [id number] 09/07/2020 03:35:12 PM EST [facility] Name Value Range Interpretation Code Description Data Sanjuana rce(s) Supporting Document(s) Discharge Summary [facility] XDZPQg0zQqAPLyMt02/CZAkzABAbw3KdZCliZAu3UCitCZZwC5UkOBG5lP7qDVC5KPuGJxJbXrHbTwTz lbm [file] e68xXaNyDwcgYDb1w5U/c3PY+h16bhmTuUZ+funds transfer clerk/rk+G7fJcEv5JyiGOh53yfVzFLjhN+JoDZ97x7UyS [file] ICAgICAgICAgICAgICAgICAgICAgICAgICAgICAgICAgICAgICAgICAgICAgICAgICAgICAgICAgICAg ICAgICAgICAgICAgICAgICAgICAgICAgICAgICAgDQ ogICAgICAgICAgICAgICAgICAgICAgICAgICAgICAgICAgICAgICAgICAgICAgICAgICAgICAgICAgIC AgICAgICAgICAgICAgICAgICAgICAgICAgICAgICAgICAgICAgICAgDQogICAgICAgICAgICAgICAgIC AgICAgICAgICAgICAgICAgICAgICAgICAgICAgICAg ICAgICAgICAgICAgICAgICAgICAgICAgICAgICAgICAgICAgICAgICAgICAgICAgICAgDQogICAgICAg ICAgICAgICAgICAgICAgICAgICAgICAgICAgICAgICAgICAgICAgICAgICAgICAgICAgICAgICAgICAg ICAgICAgICAgICAgICAgICAgICAgICAgICAgICAgIC AgDQogICAgICAgICAgICAgICAgICAgICAgICAgICAgICAgICAgICAgICAgICAgICAgICAgICAgICAgIC AgICAgICAgICAgICAgICAgICAgICAgICAgICAgICAgICAgICAgICAgICAgDQogICAgICAgICAgICAgIC AgICAgICAgICAgICAgICAgICAgICAgICAgICAgICAg ICAgICAgICAgICAgICAgICAgICAgICAgICAgICAgICAgICAgICAgICAgICAgICAgICAgICAgDQogICAg ICAgICAgICAgICAgICAgICAgICAgICAgICAgICAgICAgICAgICAgICAgICAgICAgICAgICAgICAgICAg ICAgICAgICAgICAgICAgICAgICAgICAgICAgICAgIC AgICAgDQogICAgICAgICAgICAgICAgICAgICAgICAgICAgICAgICAgICAgICAgICAgICAgICAgICAgIC AgICAgICAgICAgICAgICAgICAgICAgICAgICAgICAgICAgICAgICAgICAgICAgDQogICAgICAgICAgIC AgICAgICAgICAgICAgICAgICAgICAgICAgICAgICAg ICAgICAgICAgICAgICAgICAgICAgICAgICAgICAgICAgICAgICAgICAgICAgICAgICAgICAgICAgDQog ICAgICAgICAgICAgICAgICAgICAgICAgICAgICAgICAgICAgICAgICAgICAgICAgICAgICAgICAgICAg ICAgICAgICAgICAgICAgICAgICAgICAgICAgICAgIC KwGQLrMJUdHNa4A9rbGMQiOQExTJ1vVVw2Et0+VEcBHmMhJAY4pmMwnH6UZI3dg9YgSQedSFOry3CnLD v7EK4CJARhKJsrGZ7JXSmqta8FINHfLCKidNNDb7bzQaQhPOA9VOWkIifgFJ5UBTCvG9gbgeZlDDFlDC BSIDcgMCBSIDkgMCBSIDExIDAgUiAxMyAwIFIgMTUg HXUPQU7FQlQsJ1LgpU17CPLWLf5+PMuwguGfFwhZLzHqXGGhr5RyIEs7FX5AKLUvJwanu0ImNDDoLNRI WYhpUE4UAFY6JPPxQDPtNo8UIRKrE241mxHjMS7GIf8IMjTbNO5xvu5MJRKfEGUzXscMYok3OVufNV7C lMKiGNjGoCFezYLdG8GbL9MclVResFIogDIFoWAkqu LOqHSiRDAEBVMaoVSpDdGaAeOwFzQmGEN3VnGoDO4lYGauQL0HUJO6YHxdSFXsHOLnW0hDMcLsZTvkGL VyfQqjEP3VSjXqY6FymiDwsOD1FWHrYYVACf3+RXglmqFdSgpAPxBuBPOsg4OeKVf6HV2BHDJqBMiiPF 0YHVHgdC8eSTajTF9BAoXzXCRjRSGMLlDqJ65gmTXs TDf4N3HxHbOfKFXyXeakRGRzNOruHsPwFWZwUuZiSEcnLU8+ID4+YWxkFV5GJNpdjuVfSSKeFv4ERERp BSOeIZ7pKLGzTLDrD8D6aLfvLNNIXsLpF3zxzndwBE6dXNFfB793tYybxkTkWDZlDLBuDd0DFELcDIL4 CPTahNKsWYOgRSSCNUmvLL0XwEGvWAQ6dG3uGKfcZC IvDSJbS9eFPhUcaAbnLI72dBspatCyuMGrISx+Oq5IWD9bp6DxYBb4roNoGLvzSBP7IYpeSNMuMHHzGY IoQAS7LYP0URULBmUsKELdYHOdDOzzUKJkTLUpfh5DVTWuENZ6FxP0BxPqHZMsQRTxJTdoKGFcLMBwJS A5DIKvWLErRV3JKnZtZVEyHJVdYQbxSLNkOSUaid7S XITnPMPyKOFnOVEfETCmSPUrVGccMCAjCOP8NzC8VSSrPSMtJK6UJjYrSQCwNTb8CbEgJOYqYCNnxd7E RPIdEEKcHed0ChXvPSRhJKKlSZzsUTLxSGDaXRJoGZLjIMEbRF1UXkXgRNJtSND5TVZdHIHuQKRatd8O XWOoHGVeGVLjKgPiIBQwKRInMTtvDOYfZDO3XkX4GU LvRFCcPI0ACkOmZOIgLXu5BYClJNWxMDLhzt6YSMShSDOhEQOqEiDiDRKmPPUtDUlwRVVkDHUaHyC2VX YfKHTcQZ1SBsDxKMSkNjI4MIPjCYIsGHYfrt3KECHjPKNjGEnoKvYnAEYaYIHgSKcdDLXuHCOvKEY2PE PvDBXaDO4KRnVpOAXgSqTiUMJmPTXjHCWfai5IGCEo ZZPqEkR1MfXxQRAnVUPqXTjxEQBvPAIbJhG4SEKxNSDuYA4GCrKoSXDrLbP7BtYzMWSvOMKhol2ATWTj KJZrKPs9ZMFhICNjHMGnLDudWRZbZBI0POt5ETNfUQExCH3WXyIbHMYfDqP1HJYrJNDmETLjtc6THLQy EOAlBmO6XfBxNPElZTYdSYyxPZDtZVY1KonnPDDmER MwPL9RRaDnPJRwHhj7PwZbSMKdUHZcbl0JZJXdHTXcTqwrBwOlCQPmWTXmNSvxZOCdLDX1OGX8DUSpAR GhBN8JLbPqFOOlBbhkPBKpXZJwTHCdru7CVONqLNWwJFUoFJKhZBKeGIDrQVlaKLGtOSR3CBH5FLTyKX BgRP3OFdYmLTRqMPZvQMArDWEqBKNzfy5GVIPyMKC0 KSIbLWHcGWKoFDUbNUxjDFLfNXZpHhQ9MENcRWIsIM5YBlNlKHQjYUI7WVgrMRWiPWEcdj7USDQiJHW1 DEg9ALKlKVNuWZZtFYdeMKWgVCRgJXScKJEcBTPkYG8LPkSrRUQbQEA8WSXqJJBzUFOyqw8HWTVwFGS0 Hhj6ZtPuWDHcMZVcFFrsUSAwRMQ5VPD1XSDuIYQcKB 7AFoFdBCWxHJVmHVXvROMtVEShld9DcASmwEqjnx8GCQaVEl7QyPmvMHX4TUpqVe4kbRX9FxMzEYCUDr 1MkuZfELFkLPBYEBrqTUZaFPKnMIUrCYn7NZg3BsWpIUV5XEQyMrq0J8S6DGx7WoI7AmE8BYWdLmF8IH iwSQj6MSO6AhjjSVJ7PUIpGNu6JQNzBHO+IF0gDQ o+Qr0Eu2KegrQ3cmSnHDn4RLMyBD9QLLNHA6BPAv== ID Date Data Source [id number] 09/07/2020 03:15:47 PM EST [facility] Name Value Range Interpretation Code Description Data Sanjuana rce(s) Supporting Document(s) Progress Notes [facility] WBZARh6sWdSPXcZo39/QUGomXAQry8SwSSrtJEz7KTxmFGLkA0OiEEH7zO3gNGE4ZBwAAzZkUxVjBjEp lbm [file] AgICAgICAgICAgICAgICAgICAgICAgICAgICAgICAgICAgICAgICAgICAgICAgICAgICAgICAgICAgIC ANCiAgICAgICAgICAgICAgICAgICAgICAgICAgICAg ICAgICAgICAgICAgICAgICAgICAgICAgICAgICAgICAgICAgICAgICAgICAgICAgICAgICAgICAgICAg ICAgICAgICAgICANCiAgICAgICAgICAgICAgICAgICAgICAgICAgICAgICAgICAgICAgICAgICAgICAg ICAgICAgICAgICAgICAgICAgICAgICAgICAgICAgIC AgICAgICAgICAgICAgICAgICAgICANCiAgICAgICAgICAgICAgICAgICAgICAgICAgICAgICAgICAgIC AgICAgICAgICAgICAgICAgICAgICAgICAgICAgICAgICAgICAgICAgICAgICAgICAgICAgICAgICAgIC AgICANCiAgICAgICAgICAgICAgICAgICAgICAgICAg ICAgICAgICAgICAgICAgICAgICAgICAgICAgICAgICAgICAgICAgICAgICAgICAgICAgICAgICAgICAg ICAgICAgICAgICAgICANCiAgICAgICAgICAgICAgICAgICAgICAgICAgICAgICAgICAgICAgICAgICAg ICAgICAgICAgICAgICAgICAgICAgICAgICAgICAgIC AgICAgICAgICAgICAgICAgICAgICAgICANCiAgICAgICAgICAgICAgICAgICAgICAgICAgICAgICAgIC AgICAgICAgICAgICAgICAgICAgICAgICAgICAgICAgICAgICAgICAgICAgICAgICAgICAgICAgICAgIC AgICAgICANCiAgICAgICAgICAgICAgICAgICAgICAg ICAgICAgICAgICAgICAgICAgICAgICAgICAgICAgICAgICAgICAgICAgICAgICAgICAgICAgICAgICAg ICAgICAgICAgICAgICAgICANCiAgICAgICAgICAgICAgICAgICAgICAgICAgICAgICAgICAgICAgICAg ICAgICAgICAgICAgICAgICAgICAgICAgICAgICAgIC AgICAgICAgICAgICAgICAgICAgICAgICAgICANCiAgICAgICAgICAgICAgICAgICAgICAgICAgICAgIC AgICAgICAgICAgICAgICAgICAgICAgICAgICAgICAgICAgICAgICAgICAgICAgICAgICAgICAgICAgIC AgICAgICAgICANCjw/jDJxX8wpfCNoafT1U4esZz8S Eh5NXC1cz7FkWBYlQCcxtgCuSlmISwVzLCGhQxaESmt3ETovQS0YjQCqZ7RwC0RgNHsrYC0OQSIjUYTn aCVbRLMbVKEcCkA2UUArMTaaJQ8XrOOrMJuqRBUpDUIjTxCeIWOeLUQpQRGdVVOgHYKPJT6WWgOvU2On kV28PGOPEv8+CYdaxpQvHuoZMtS7CUJfm4BvUPu3TY 1QSOZrHrmia5JoIKUaRISTZYcjQO9VXFW9RUQhQPTiKn6CPXRyJ248wbSoYJ7DLw7MIhShOS4rbd8UVJ CxDGDtOupJSun7YHvpHT5VqKDgALvLbe6qwnBbltIJg7EhlvIgjTVKrZLbszVBzUPyWXLYDSJawETsQa UuJeMrYvVpCEO3YDMlXQ9pKRhwBO7QRNC7AZxxUVPl ZMInB4uQAnUqBYgcKVFldFugMD5FYwEwS4LtirOjyRSdJLRgEKZZUw6+SDfkloFuMzlNRuDkAJVtm4Cf JXx6ON4FWNOgGUyxBL8CMITfaC7sHHujYN1BQbJiOdQbTARJTcQrY82wtVEwRGf3N1KoEhMfQBJvEvtf ZXMgPDwvTmFtZXMgWyBdDQogID4+ID4+LAsxKN2OJM yzudCjSDYrHk0RCKJlAZSoTS4hLDYlCZJbI6U3rXqmTOGIRhPmL5wwcovpQN5pOKHcD803rWgzohJgHG R4IIBxDk3UIIPsABY7FDFidBBdObouZNZGJJcpFK8BbDRnOTY1qX5fPKbiAJFlOKWvL0zKBcLkqGvgFM 51bGwgbnVsbCBdDQo+Tf7NMC8ym2UuVBe3nfJcCGyu PHSjPIteQRHkOKNrJHIgKCW0CIE4XOMPDmUyMDXhGYTxTUqfFIGmRXXiha6EFGMkGWO0MVL7ZKYpFIDh CRZkVCmvPMFqPLQ5GLo0ZQJjDFNvHX1VIiEvJYEqLBAhSCnzRCDsJUAdkr8AKSFoODKpMmPzLxVgMQDj JWQhJQgzUMEnEUJfXOUwSFQyHDTiZF9WHiZpXCDnKR IoJhiaOIKoTMQmla4UAKRfAWOxBKX0ZXFhSPFiENJeFCqpOXWaFWT0KmG2TIZtTXEiKO0TVxWpGLHkXW i3KeNgIQAoZYFwmk5GPTQwOYSzYIqzMkMlMNBhWJQbLVjuZEWqSTCkKMVcBGYbMHNzKD0JWkOjDOIaZK JgDCMxHFGmGRRkdv2FKEGrRXCqPMUbNQYiAVTdTXAl GMdkPDSyNGMoSZuhGRNrRBDdEA4IBpWqCCApIDN3TACqKVGlMTDoik3EHVSzIRJrRxF9YPWtPLCzXZKo DAcqUSSbXHOeJUDqICKbNLGfPJ1HPsMnGQWkBlThWWBoRMFrPUNdid7ZGJIeODCsHJC4JjTtJSIdSPMa YSvhVRBeOHH2LsO8NXDpQVSeVN0ZTaAxEBQqRiN0RK XePRVdBXSegp0KNBXlCBMnLoY6NpStUBBgOFZvHYtwAXWaTMC1XHI8RCGePHGeZC1MObXqNYXePvgsPf FyXVTvWIZnlf7PIXViFJObWbBmCJDdHDNlOKYxAXoqXMMlNHF5XzN8UJLrTKDjFB8URdIxJFQlSjc1Oz EiOGQbBOBobq9FMBYlDCJtCVmaNGBdBGQeMLOjLAzw ZVLcRAYlWLQ9YZCaWONlJX2RFyZpHFOoZBUcTETeHBLxFZSbwx1MMJHnAZD3KhP7WLDcBKNdRKGyOYtm TKUhBZEsJph1LJYjAQFvZF9IMeJnMSOeITB8LOimLDDcVGOusl7YBOEjBTA9Fxh3JDCfEZOiZBAaVZpn TYWzOIK8KDj2GWPnKIOoSZ2TSkIzAXHvMMYgRuAyFF TgXNPbyq4HMFFfKDS3GPefKXAhFCIdRIPtQKneZJIhDVP2SDl0NXSsKKJgZP8DDfKvEEHpZHSzUgSaIA YfGXQapy9ULYAyLUS1IuQlSHIeDRMsXRYzFEg4pjTurJQyKRf3DK0GY4AxeqPoPKLGGf1Im323LIBzAZ FvQp5HI1aoJr4gRZAtAGPVTz6QATs6MXB0BpP7IVK6 AYvbBeNyEvS6NtjtV2YiZEvwYlH4KpM+SUm2BJZrSIBzRYtgR0RhUWVeJGF3QKNgBJM9DUPkLsrjNO7i XSANCj4+XSsvyNBqtSfcFEACYbB7YwC1BIveURVPRv5W ID Date Data Source [id number] 09/07/2020 03:13:21 PM EST [facility] Name Value Range Interpretation Code Description Data Sanjuana rce(s) Supporting Document(s) Progress Notes [facility] WHYQMi3aYcVFKaJl74/DLEolKIFvb2RtHBkfVDl0WYpfOWSzD7FfUCG1rA1uYJK4FBrSSgTuVuFwDbSy lbm [file] AgICAgICAgICAgICAgICAgICAgICAgICAgICAgICAgICAgICAgICAgICAgICAgICAgDQogICAgICAgIC AgICAgICAgICAgICAgICAgICAgICAgICAgICAgICAg ICAgICAgICAgICAgICAgICAgICAgICAgICAgICAgICAgICAgICAgICAgICAgICAgICAgICAgICAgICAg DQogICAgICAgICAgICAgICAgICAgICAgICAgICAgICAgICAgICAgICAgICAgICAgICAgICAgICAgICAg ICAgICAgICAgICAgICAgICAgICAgICAgICAgICAgIC AgICAgICAgICAgDQogICAgICAgICAgICAgICAgICAgICAgICAgICAgICAgICAgICAgICAgICAgICAgIC AgICAgICAgICAgICAgICAgICAgICAgICAgICAgICAgICAgICAgICAgICAgICAgICAgICAgDQogICAgIC AgICAgICAgICAgICAgICAgICAgICAgICAgICAgICAg ICAgICAgICAgICAgICAgICAgICAgICAgICAgICAgICAgICAgICAgICAgICAgICAgICAgICAgICAgICAg ICAgDQogICAgICAgICAgICAgICAgICAgICAgICAgICAgICAgICAgICAgICAgICAgICAgICAgICAgICAg ICAgICAgICAgICAgICAgICAgICAgICAgICAgICAgIC AgICAgICAgICAgICAgDQogICAgICAgICAgICAgICAgICAgICAgICAgICAgICAgICAgICAgICAgICAgIC AgICAgICAgICAgICAgICAgICAgICAgICAgICAgICAgICAgICAgICAgICAgICAgICAgICAgICAgDQogIC AgICAgICAgICAgICAgICAgICAgICAgICAgICAgICAg ICAgICAgICAgICAgICAgICAgICAgICAgICAgICAgICAgICAgICAgICAgICAgICAgICAgICAgICAgICAg ICAgICAgDQogICAgICAgICAgICAgICAgICAgICAgICAgICAgICAgICAgICAgICAgICAgICAgICAgICAg ICAgICAgICAgICAgICAgICAgICAgICAgICAgICAgIC AgICAgICAgICAgICAgICAgDQogICAgICAgICAgICAgICAgICAgICAgICAgICAgICAgICAgICAgICAgIC AgICAgICAgICAgICAgICAgICAgICAgICAgICAgICAgICAgICAgICAgICAgICAgICAgICAgICAgICAgDQ j4P7lgWWDjCIDcKZ9nIXk4Dt3+YSyJFjJbQTW4dyRn bQ8DZP4ot2BhZMlxHCSaz4TtWDa0WF0KTUSlZTcgBW2BCFmqmu3VACLaGVRpwKLDn0zhKcFkPMH6WABl FdumIU6LBVLuT1gffaBjBJWbLCECIQ5HJcYkQ1UazB22LBUCVn3+FOnllhCwVikEDdO9TFWht7OpVGb5 SY5VWCXbQaygi7RaUhApMBKWUYkdAV6BUHG4QSJ6JB YcKg8XSWAjA157jrKyFT7EBc5NSmZtNY4xjw3SEpGkIZZeHvpGPkq4EUvbDC9DcLOnAEdUfj2fnkRyht DTb4SgneTwdQYTWRUmB5DiKXjnjTOafqRqXV8yUHRvYy1uPi1pEOSfUXChNaFvIVVWTI7HQELlYKFjjY JiWXWdEGEIRA8QIEcwAHA2OgrqokDryAUrHIwgJK2S YXJlbnQgMjUgMCBSDQo+Vq9XVV6ts8LeOUntBaJmJV7kat6BVDaSYsNzX9B1mYQaU5C8POefOz4QIXHu RFEkMyZmVOGIISmfOS0DBV5eumO5MT2YuLDuVMVhMBBvbELaQEy5H38iyLLuMJiuQO6BBVG+Rosanne+Pg0K ZCZwUUAiTBBiVvCsMBVSBuLgI5PrC3DBi6HoQ6RzLT 59tEafvnUoUAckPX5QCN2vCTNtFONXXX1ZeWGoyO0gqmYcHXVtZOEXUlSfB93xjXSbFRHqULR6RMNgPd 2GLFKvE2VqlnVogUulzwHrMKGuTCYTLU9YRZtucdLyqKVioMorIW99dEbpYU0NTa7TPwHaWD9aid4CaI WgXl7IVGNiGW5GFVBgTUOnSIHqWNG6CHJyRnKfIXqj ICDuWEXbUJZ2ZUEfAOJuGQ1GJvEvPVQuEiA3EAYfTASvPQTomh3OYUKiAFEqGtFyTfAqRJZsJJGlXFot BELfBANiKEP7PBIqZDQoAI7AKyKlZGVjKUK9FMVhQGYwVJViuw0TYUZvKJXkYpZzMmRiTQVjJXFoDTtc YWLjNDSbKEA1YYItDGFfFZ4LDrVeJDRiFTQfDyDuNL FdUBOwwp3DUHZgZEVaUlR9KJQcMGQvBWHmYGmiWSOkTCB0LEReRERzUAJeXR8RImAoFFTlEYW9OCpjUK TxJRCvcn3ARSJxWAWjPRp6DEJyEGMwWEDxYZvxRNNeJVH3EOY5WLRpETOzQS6VWmMvWJYrYJo0MQKjJW CnTKOksx9FEFOaPBAnRgE9QcFbGWRzFUChSDsrVGDu QRU3PTBoGTChYDWyEX9KHdWoPXAgNHaeHCbnVNCuMZLahk9ELOHiXWTaTGb8QzGvASRuOGPyDGnjRPTt HGI5YOlaJMMsKCOpSY4KFfBeXTMmEWzcUyZqVOQuYLUkqs7VCEGhVZFrOWVkMvLfJDMkYSUgBIacQZFh VORwDQd1UZHqZFYmGG6HReAzJDEqXcC4PkNkJPQoIL Zvnh5DKDJhNSYuLSP6ZvPvLYHuUHPoYRjtEAEzIFDxAVLeGZSdOBGlMB3EVfQvTTFkBiZ3VPKeJHGsUU Vwhf3ZKKUiQCLzCzl4GISzOKJxXHAyRPh2onQyaSTzADq3SA1XI8AupqDmUszJWn6Vo312CGD4MJYlAn 5TF9crQr1cTAOcBOPWYk4GSRw5AyqdTUMjWaj5LWP4 UGY7R2UkVYUjOzBaO8RmOMF1RFR+XSzeABQ6EJRaSxkoXWTwJMFoP6A4NXRgESE7ZdD8LUnnKj5rXDKV Cj4+SJmpxUViaKunNBVVYiKcIKc4PVpnSRDTTs6X ID Date Data Source [id number] 09/07/2020 01:52:00 PM EST [facility] Name Value Range Interpretation Code Description Data Sanjuana rce(s) Supporting Document(s) SARS coronavirus 2 Ag:PrThr:Pt:Ord:IA.rapid NEGATIVE [facility] This lab was ordered by [facility] and reported by [facility]. ID Date Data Source [id number] 09/07/2020 02:04:00 PM EST [facility] Name Value Range Interpretation Code Description Data Sanjuana rce(s) Supporting Document(s) POC SARS-CoV-2 NEGATIVE NEGATIVE Normal (applies to non-numeric r esults) [facility] Performed on the [employer] NOW analyzer by rapid molecular methodology. First Test No [facility] Employed in healthcare No [facility] Symptomatic as defined by CDC No [facility] Hospitalized Yes [facility] Resident in a congregate care setting Yes [facility] No [facility] Intensive Care Yes [facility] The above 8 analytes were performed by [facility] [id number] [place] [address]#: [id number],[place] [address] ID Date Data Source [id number] 09/07/2020 12:16:22 PM EST [facility] Name Value Range Interpretation Code Description Data Sanjuana rce(s) Supporting Document(s) Progress Notes [facility] SCZTKk0sKzPIJrEw89/PYTzpRDGpg9RpZAtyTZe5WGtbMBBeC6LrHEZ0iI5zRMQ9HVvKBuIzKmXtVzYw lbm [file] Cx5QDjR3WDT9nMRoRg5RWkKeCRzFRsXaAT1ZEFb= ID Date Data Source [id number] 09/07/2020 11:42:00 AM EST [facility] Name Value Range Interpretation Code Description Data Sanjuana rce(s) Supporting Document(s) Glucose, Fingerstick 286 mg/dl 70-110 Above high normal [facility] The above 1 analytes were performed by [facility] [address]#: [id number],[place] [address] ID Date Data Source [id number] 09/07/2020 11:05:23 AM EST [facility] Name Value Range Interpretation Code Description Data Sanjuana rce(s) Supporting Document(s) Progress Notes [facility] WGDMLy5bCoISBwIe21/WHKsaLGIbg8IcHDwuLAu3MRnsROBjM0RbPEA2iQ7aWRG3GIxYVtZyGbAsBdFk lbm [file] ICAgICAgICAgICAgICAgICAgICAgICAgICAgICAgIC AgICAgICAgICAgICAgICAgICAgICAgICAgICAgICAgICAgICAgICAgICAgICAgICAgICAgICAgICAgIC IhKAKeAFRkIU2QQMMlGKAhSVJzNLRdLXNeDAEdTJKuBVYwVMOlLKZxVVTdJECeUKBeJHGaVLAzGFJrRD AgICAgICAgICAgICAgICAgICAgICAgICAgICAgICAg VXPyCOEtURMlBNLvCFXhKYCdYW0CCQEzOFFaSKCvEVRwHVYpWDEqDHGbYBBzAQBkVOCfHUKhKGPiAFQr ICAgICAgICAgICAgICAgICAgICAgICAgICAgICAgICAgICAgICAgICAgICAgICAgICAgICAgICAgICAg VM4KFDEfFJWvDLDvAKUmSNMgLWWbXVAwNDBkXUVrUH AgICAgICAgICAgICAgICAgICAgICAgICAgICAgICAgICAgICAgICAgICAgICAgICAgICAgICAgICAgIC EgTDKjNJSkTTOdMO1UMERgOFHvVBVxAIBgYDDfSOVfLQBfPLEtPXZyPUFxOQXjOEKnSZRwNHWdCSJaSI AgICAgICAgICAgICAgICAgICAgICAgICAgICAgICAg OKPgCWKtRMFcVJVvBKQgKELlQOKtWW6GQAHiVPZrMAKbTVTsIHIlCAZvPPTiBSPrQHXvENOaIBYpMJFc ICAgICAgICAgICAgICAgICAgICAgICAgICAgICAgICAgICAgICAgICAgICAgICAgICAgICAgICAgICAg BZXlVS0FZGYjUQUaISKhAEUzHUNuQMSvJXCkWVSrYT AgICAgICAgICAgICAgICAgICAgICAgICAgICAgICAgICAgICAgICAgICAgICAgICAgICAgICAgICAgIC MqFOHxRPEnWGFaJKHuDX1GNXWnTKKuPUBoVAPqOYVqHDVdCLZpCVHbVBUiUVSoNTAkWXLiGZUcSKAxFS AgICAgICAgICAgICAgICAgICAgICAgICAgICAgICAg SBJzDNPfSJAfGLLlYDYtAXZiLKOnWYDhXA8KGKDeFXAmPDJvKRYiCOMpPGNrTJKpLQNlPYAaKQYyBOXe ICAgICAgICAgICAgICAgICAgICAgICAgICAgICAgICAgICAgICAgICAgICAgICAgICAgICAgICAgICAg ANBoWWNePO9LTA53yTXas9D4BNGcSN6afhx/Pg0KDQ sldnWxbUIfLH4MAtKbCP7uvi1MNqYcXD2avw6LFLuICbEhE3L2fKAvXCRdUFKAOmYcD92xTUgjQa56NZ scRJUmEmQpYQh3Df7CAhTiE4zgZBOwMvD3QUDcIkYiKCeiPE5Li7ZglJOlZPf+Ei0MWB2wj9ClWZhgVd McAD5grg3YGOiIQpBmR7DccgA7WAP4FKGeKi0YUQCn XRPafXTiBbZqIWKNPoQzC5TsdD69SBNVAd5+UPfjrsSqVytBUtE0KTLsu7ZfKZf9RQ9UQITtRSt5bOKn SZHsF8Jhq9CzUs21FAPnCgcxL4RbTGPwWDQuIpWbgVkgXJQrZCAzDa5sCe0pNQJqFOCgIaMwKERJKM3K YUPoFJQosRUkOEUrOMBJBF5BFQlpJWY6LctcqqMtiS TkMOjsWI1DPJKecpJmGsXoOGIQODc+Ns8YCG1ka6GrDEuqLBTdJM6noq8TJPoKInOoV6V1qPFhY7L9FG geXz0RGGJoIBNbVkUyCCOIXDevNY7YJJ0exuD4QZ3SnXYuYDNwDKXitQTfIWt9K22xgSVjMAabPI8DJZ A+Rosanne+Qq5WBLPoOHDkICIePaBdTIOEZlStA3RbD4DM b0FiA8YjYN61bIzlnwJxFXexRI0VXZ9cCFGiBTCXWW4ZnKDcpB8jhyTfInCkDMTXSiEtR26peJRsRTZm TCO1UJPeZx3TIRHzW1SlkqIatXqwgyEbKBHnUUJPJX5IDKxqogTazBDvxJmlGA43xQfwTB4DIs2NWaYl KE9wuw6FsLJaWk6AHUBoQD7DMZIpKIPtOFDpDSU3BY GhFsUaVNxbJXCiSXXeJSU4TVCrPQQhVM8FNgEoOLRbAcozYvpgQLGsYFLoyf4AJRFvSXMhKAL4AaKsWE EbSEBgRNvsUKDhAXNcBNA7BAQfKWVmLW5KRmVuKWDgHZZ0YSsqWSEkQLOfyf2LMEBbDMEgWhMuVnRqYP VkYTGaRPahUJRsDGHbBJZfOUWcCRAtUI1ALnMqTCUj NQDzVkQmEORiIURrfz7OUAOsSEMzNXJ0PjLqYESqEEAaKNpuNCWbLGR5OlQ0EOKfEQBbIR7SAcGiRZAi HLN8FWAwUFJbYEZzcb7NJLRtTFEqBDE8KEJoFQYlJCSrLDljTWZzZBX2PENcTLYfSAXgMZ7XUnCoEIUr WZruSGbpYYKcHXAvvh2ZTFNuJVIjKKU3VGGtTIKoXY VkTGbzKCWtRDD0Hdy7PIUrHEIgTJ2UPnUjRZFrDSi3PZBaFRCxKCLlnx3GHIBhXGPoAHl6GtZrZWDcDL KmEFenMEHcJOLlGUo9VCZeLJBwOD8SVgBvIBLfRmJbKKstYNSkNSHqrp1UGHBnEAHtEOQiIRRbCORhRJ GqQPubBSPfAKRbWuhjWATuDAIzBO4ZUaSdHIPjSlU9 GcSdCKTdKCExtm9XCWFyMITaUoQoQpFpMUPeSQSwUVidNXLvPUUcUts9BJVpCNHkKE3WVrAlCMXhTcP4 DpWzPPNkUYPbxn9WVWLwYZLuLdclQeYbMYNdIQAvJFqvUEEfNFS5FDU1PUWqDPPrFO2POzHaBRAdSyzc EWMmIHMiYILxfu3DLUGvKXIhJOV3RnPzDJRhTUUbWB bmCBKwOHP5TfPlFXTyKLWeBG7PHxBfZBGgCdd8ZzGmYBUgJSLdua2DGTFuKYQeMWIlYHHaGVQsQGLkYI poPUVkFIW0ZbO5WRDmYHXlCJ5ZMoPzNNPfBfl4JrmnWVYpRKHhpb0QXURzPHIpIBE0GODgPXJnERLwNS bfZOHnFQLvTuM1LPUeGDLoCE3JQtNsQEMrPrXeJNLv BPPjWTQsjo5SzPXbzSdnzy0UWWxERy4YoLtrABQ6STppFb0ejSCkHGXwGEBHHn3DruMdYEWuOPCNCWol WJTzYABmYDi9OtXhAny3BEH5QRRpFeC1PkCvBRP3GHLqUVO6TwE5L3HnWTT7KKLwVPBmVJs8NNB8KAij DyQ9DqT8TMD9VWv+IG8lXKw+Nx2So5XcavE6keFlOHogRAOlDA3CISUQV3USLh== ID Date Data Source [id number] 09/07/2020 10:25:00 AM EST [facility] Name Value Range Interpretation Code Description Data Sanjuana rce(s) Supporting Document(s) Glucose, Fingerstick 187 mg/dl 70-110 Above high normal [facility] The above 1 analytes were performed by [facility] [address] [place] [address]#: [id number],[place] [address] ID Date Data Source [id number] 09/07/2020 09:00:09 AM EST [facility] Name Value Range Interpretation Code Description Data Sanjuana rce(s) Supporting Document(s) Nursing Note [facility] NNMHAa6sKlJUCiQp26/CEUcqBDKyu9PySRssAYj1FVbtZBFgG6ZzTSY6oV3kVTD0TKtYVkXbKqZxDhQd lbm [file] YjM+DN9qPQr+To6Rw2ObgbX6ckObMJr9OLVoSYjlAZHMZq2H ID Date Data Source [id number] 09/07/2020 10:57:00 AM EST [facility] Name Value Range Interpretation Code Description Data Sanjuana rce(s) Supporting Document(s) RBC Morphology \\Present [facility] Anisocytosis \\Moderate [facility] Macrocytosis \\Slight [facility] Microcytosis \\Moderate [facility] Hypochromasia \\Slight [facility] Polychromasia \\Slight [facility] Platelet Estimate Automated platelet count confirmed by slide scan [facility] The above 7 analytes were performed by [facility] [id number], ,[place] [address] ID Date Data Source [id number] 09/07/2020 10:56:00 AM EST [facility] Name Value Range Interpretation Code Description Data Sanjuana rce(s) Supporting Document(s) WBC 14.54 x1000/ul 4.80-10.00 Above high normal [facility] RBC 4.87 x1Mil/ul 4.70-6.10 Normal (applies to non-numeric re sults) [facility] Hemoglobin 12.2 g/dl 14.0-18.0 Below low normal [facility] Hematocrit 40.0 % 42.0-52.0 Below low normal [facility] MCV 82.1 fL 80.0-94.0 Normal (applies to non-numeric resul ts) [facility] MCH 25.1 pg 27.0-31.0 Below low normal [facility] MCHC 30.5 g/dl 32.2-37.0 Below low normal [facility] RDW 20.3 % 11.5-14.5 Above high normal [facility] Platelet Count 287 x1000/ul 130-400 Normal (applies to non-numeric results) [facility] MPV 10.6 fL 9.4-12.4 Normal (applies to non-numeric resul ts) [facility] Neutrophils 66.8 % 40.0-74.0 Normal (applies to non-numeric resu lts) [facility] Lymphocytes 17.0 % 19.0-48.0 Below low normal [facility] Monocytes 10.9 % 3.4-9.0 Above high normal [facility] Eosinophils 0.8 % 0.0-7.0 Normal (applies to non-numeric resu lts) [facility] Basophils 0.4 % 0.0-2.0 Normal (applies to non-numeric resul ts) [facility] Immature Granulocytes 4.1 % 0.0-0.5 Above high normal [facility] Nucleated RBCs 0.00 % 0.00-0.20 Normal (applies to non-numeric r esults) [facility] Abs. Neutrophils 9.72 x1000/ul 1.92-8.31 Above high normal [facility] Abs. Lymphocyte 2.47 x1000/ul 1.20-3.70 Normal (applies to non-n umeric results) [facility] Abs. Monocytes 1.58 x1000/ul 0.14-0.97 Above high normal [facility] Abs. Eosinophils 0.11 x1000/ul 0.00-0.76 Normal (applie s to non-numeric results) [facility] Abs. Basophils 0.06 x1000/ul 0.00-0.22 Normal (applies to non-n umeric results) [facility] Abs. Immature Gran. 0.60 x1000/ul 0.00-0.02 Above high normal [facility] Abs. Nucleated RBCs 0.00 x1000/ul 0.00-0.02 Normal (appl ies to non-numeric results) [facility] The above 24 analytes were performed by [facility] [place] [address] [address], ,[place] [address] ID Date Data Source [id number] 09/07/2020 10:45:00 AM EST [facility] Name Value Range Interpretation Code Description Data Sanjuana rce(s) Supporting Document(s) Blood Urea Nitrogen 20 mg/dl 7-18 Above high normal [facility] Creatinine 0.66 mg/dl 0.67-1.[address] [facility] N-Acetylcysteine (NAC) and Metamizole villanueva ve the potential to falselydepress Creatinine results. Baseline values before medication adminstration are recommended. Patients undergoing treatment with phenindione will have falselydepressed results. Patients on phenindione therapy should be tested with an alternativeCREA method.Toxic levels of acetaminophen may lead to falsely depressed results forpatient samples. Glomerular Filtration Rate >90.00 mL/min/1.73m2 [facility] GFR Reference Ranges:Normal Function or Mild Renal Disease,if clinically at risk:>or= 60Moderately decreased:30 - 59Severely decreased:15 - 29Renal Failure:<15 Please note that the MDRD equation requires an additional adjustment forAfrican-Americans (multiply the GFR result by 1.210).Glomarular Filtration Rate (GFR) is estimated based on the MDRDequation, which assumes a steady state for creatinine (Yany Int Med 139/2 137-149, 2003), as recommended by the NationalKidney Disease Education Program in conjunction with the National Institutes of Health and the National KidneyFoundation. The Oxford method used in calculating this result is traceable to IDMS standards. Glucose 196 mg/dl 70-110 Above high normal [facility] Sulfasalazine has the potential to false ly depress Glucose results. Sulfapyridine has the potential to falsely elevate Glucose results. Baseline values before medication administration are recommended. Calcium 9.2 mg/dl 8.5-10.1 Normal (applies to non-numeric resul ts) [facility] Sodium 136 mEq/L 136-145 Normal (applies to non-numeric resul ts) [facility] Potassium 4.2 mEq/L 3.5-5.1 Normal (applies to non-numeric resul ts) [facility] Chloride 100.0 mEq/L 98.0-107.0 Normal (applies to non-numeric resu lts) [facility] Anion Gap 13.8 [facility] Carbon Dioxide 26.4 mMol/L 21.0-32.0 Normal (applies to non-numeric results) [facility] The above 10 analytes were performed by [address], ,[place] [address] ID Date Data Source [id number] 09/07/2020 07:10:00 AM EST [facility] Name Value Range Interpretation Code Description Data Sanjuana rce(s) Supporting Document(s) Vancomycin Trough 20.6 ug/ml 10.0-20.0 Above upper panic limits [facility] In cases of complicated infection, such as bacteremia, osteomyelitis,meningitis, endocarditis, and hospital-acquired pneumonia caused by S.aureus, trough concentrations of 15-20 ug/mL are recommended to improvepenetration, increase the probability of obtaining optimal target serumconcentrations and improve clinical outcomes. Called To (First Last):YRN Baker/Accreditation of Person Called:RNLocation Called: HONG [id number] Tests and Results Called:YUNO TR-20.6 HPAdditional Tests that were Called:Kishore Back (Y/N):YDate:09/07/20Time:0708By:GHISLAINE Light above 1 analytes were perfo rmed by [place] [address], ,[place] [address] ID Date Data Source [id number] 09/07/2020 04:23:28 AM EST [facility] Name Value Range Interpretation Code Description Data Sanjuana rce(s) Supporting Document(s) Nursing Note [facility] MWLBUx3tErUWZmNc56/BRWkxMQFln9FdGHyrICv8NHzzWDDdQ1IxCBX8qK2nQZG6VSuFVwGbXqUoLzPe [facility] [file] [id number]9LqZtVO2MSk3DAkX2VXH6zELoFu9KUzDjNXJIBjEnQS9HPSn= ID Date Data Source [id number] 09/06/2020 07:41:00 PM [facility] Name Value Range Interpretation Code Description Data Sanjuana rce(s) Supporting Document(s) Glucose, Fingerstick 313 mg/dl 70-110 Above high normal [facility] The above 1 analytes [facility] [address] [place] [address], ,[place] [address] ID Date Data Source [id number] 09/06/2020 05:42:00 PM [facility] Name Value Range Interpretation Code Description Data Sanjuana rce(s) Supporting Document(s) Glucose, Fingerstick 322 mg/dl 70-110 Above high normal [facility] The above 1 analytes were performed [facility] [id number] [place] [address], ,[place] [address] ID Date Data Source [id number] 09/06/2020 11:24:55 AM [facility] Patient: DIANA OLIVERA : 1955 [facility] ABDOMEN PELVIS W WO CONTRAST Provider: ROBERT MIRELES of the abdomen and pelvisHistory: Abnormal abdominal ultrasound. Gallbladder mass versus sludge ball. COVID 19 positive. Abnormality in gallbladder. Subsequent encounter. Nausea. Vomiting. Diabetes. Moderate right upper quadrant pain. Constant pain. Worsening symptoms. Inpatient. Acute presentation. Subsequent encounter.Technique: Multidetector helical CT examination through the abdomen and pelviswas performed both prior to and following intravenous contrast. Multiplanarcontiguous axial, sagittal, and coronal reformatted images are presented. CTimaging was performed utilizing dose reduction techniques including automatedexposure control and iterative reconstruction technique.Contrast: 100 mL Isovue-300 intravenous contrast was administered for the exam.Oral contrast was administered for the exam.Co mparison: Correlation is made to patient's ultrasound examination 09/05/2020.Findings:Lower chest: Coronary artery calcifications are seen. No pleural or pericardialthickening/effusion is seen. The lung bases are relatively clear.Liver: There is no hepatomegaly. There is no worrisome focal hepatic mass.Gallbladder and Biliary Tree: There is dependent high density identified in thegallbladder, unchanged following contrast ministration. In conjunction with thefindings on the patient's ultrasound exam, the appearance is most likely relatedto gallbladder sludge. There is no gallbladder wall thicke sylvie or gallbladderdistention. There is no biliary ductal dilatation. Spleen: The spleen is not enlarged. No focal splenic mass is seen.Pancreas: The pancreas is unremarkable without mass lesion. Adrenal glands: No adrenal mass is seen. Kidneys: There is no renal calculus. There is no hydronephrosis. There isnonspecific perinephric soft tissue stranding identified. There is no worrisomelesion following contrast administration. There is a 1.2 cm left upper polesimple renal cyst which no further evaluation or workup is recommended.Vessels and lymph nodes: There is dense atheromatous plaque in the abdominalaorta. There is a retroaortic left renal vein. There is no aneurysm. There isno lymphadenopathy.Bowel and peritoneum: There is no bowel obstruction. There is increased stoolseen throughout the length of the colon. There is no free air. There is nofree fluid. There is some mild gaseous distention of the stomach, nonspecificin appearance. There is markedly increased stool in the very distalrectosigmoid colon. Clinical correlation with component of fecal impactionrecommended.Bladder: Bladder is relatively decompressed with Wu catheter in place.Pelvis: Prostate is not enlarged.Abdominal wall: There is no inguinal hernia or inguinal lymphadenopathyidentified.Bones: Multilevel degenerative changes are seen in the spine. There is nofracture. There is no subluxation. There is no lytic or blastic lesion. Marked degenerative changes are identified in the hips bilaterally left muchgreater than right. There is bony remodeling of the left femoral head. Thereis degenerative cystic change in the femoral head. There is marked joint spacenarrowing left greater than right and there is prominent marginal hypertrophicchange left greater than right. Given the flattening of the femoral head,component of avascular necrosis is not excluded.IMPRESSION: Impression: No bowel obstruction. No free air or free fluid. Increased stoolin the colon. Markedly increased stool distally. Correlation with any signs orsymptoms of fecal impaction recommended.Gallbladder sludge dependently. This likely accounts for the finding on thepatient's ultrasound exam. There is no gallbladder wall thickening. There isno enhancing gallbladder lesion. There is no pericholecystic inflammatorychange.Left renal cyst.Marked degenerative change identified in the hips left much greater than right. Remodeling of the left femoral head with flattening superiorly likely related toadvanced osteoarthritic change. Avascular necrosis etiology not excluded.Other findings as above.Indication. Report conveyed.Electronically Signed by Bob Ramirez MD 09/06/2020 11:24 AM Name Value Range Interpretation Code Description Data Sanjuana rce(s) Supporting Document(s) ID Date Data Source [id number] 09/06/2020 11:27:00 AM [facility] Name Value Range Interpretation Code Description Data Sanjuana rce(s) Supporting Document(s) Glucose, Fingerstick 216 mg/dl 70-110 Above high normal [facility] The above 1 analytes were performed by [facility] [id number] [place] [address], ,[place] [address] ID Date Data Source [id number] 09/06/2020 08:36:00 AM [facility] Name Value Range Interpretation Code Description Data Sanjuana rce(s) Supporting Document(s) Glucose, Fingerstick 303 mg/dl 70-110 Above high normal [facility] The above 1 analytes were performed by [facility] [id number] [place] [address], ,[place] [address] ID Date Data Source [id number] 09/06/2020 07:49:14 AM [facility] Name Value Range Interpretation Code Description Data Sanjuana rce(s) Supporting Document(s) Nursing Note [facility] [id number] [facility] [file] [id number]= ID Date Data Source [id number] 09/06/2020 06:27:00 AM EST [facility] Name Value Range Interpretation Code Description Data Sanjuana rce(s) Supporting Document(s) Blood Urea Nitrogen 19 mg/dl 7-18 Above high normal [facility] Creatinine 0.67 mg/dl 0.67-1.17 Normal (applies to non-numeric resul ts) [facility] N-Acetylcysteine (NAC) and Metamizole villanueva ve the potential to falselydepress Creatinine results. Baseline values before medication adminstration are recommended. Patients undergoing treatment with phenindione will have falselydepressed results. Patients on phenindione therapy should be tested with an alternativeCREA method.Toxic levels of acetaminophen may lead to falsely depressed results forpatient samples. Glomerular Filtration Rate >90.00 mL/min/1.73m2 [facility] GFR Reference Ranges:Normal Function or Mild Renal Disease,if clinically at risk:>or= 60Moderately decreased:30 - 59Severely decreased:15 - 29Renal Failure:<15 Please note that the MDRD equation requires an additional adjustment forAfrican-Americans (multiply the GFR result by 1.210).Glomarular Filtration Rate (GFR) is estimated based on the MDRDequation, which assumes a steady state for creatinine (Yany Int Med 139/2 137-149, 2003), as recommended by the NationalKidney Disease Education Program in conjunction with the National Institutes of Health and the National KidneyFoundation. The Oxford method used in calculating this result is traceable to IDMO standards. Glucose 228 mg/dl 70-110 Above high normal [facility] Sulfasalazine has the potential to false ly depress Glucose results. Sulfapyridine has the potential to falsely elevate Glucose results. Baseline values before medication administration are recommended. Calcium 9.2 mg/dl 8.5-10.1 Normal (applies to non-numeric resul ts) [facility] Sodium 134 mEq/L 136-145 Below low normal [facility] Potassium 4.1 mEq/L 3.5-5.1 Normal (applies to non-numeric resul ts) [facility] Chloride 98.0 mEq/L 98.0-107.0 Normal (applies to non-numeric resul ts) [facility] Anion Gap 8.6 [facility] Carbon Dioxide 31.5 mMol/L 21.0-32.0 Normal (applies to non-numeric results) [facility] The above 10 analytes were performed by [facility] [id number], ,[place] [address] ID Date Data Source [id number] 09/06/2020 06:27:00 AM EST [facility] Name Value Range Interpretation Code Description Data Sanjuana rce(s) Supporting Document(s) Total Bilirubin 0.40 mg/dl 0.20-1.00 Normal (applies to non-numeric results) [facility] The above 1 analytes were performed by [facility] [id number], ,[place] [address] ID Date Data Source [id number] 09/06/2020 06:08:00 AM EST [facility] Name Value Range Interpretation Code Description Data Sanjuana rce(s) Supporting Document(s) Platelet Count 213 x1000/ul 130-400 Normal (applies to non-numeric results) [facility] The above 1 analytes were performed by [facility] [id number], ,[place] [address] ID Date Data Source [id number] 09/05/2020 08:07:51 PM EST [facility] Name Value Range Interpretation Code Description Data Sanjuana rce(s) Supporting Document(s) Progress Notes [facility] WXTQKx5vAmXAZnDm34/KJCegYOCkx9UyULtbYHm7PYcoJTKsJ1NzERT0sS7tOBQ6WRkNXmGlGlKvSpJp lbm [file] PzA2BHD0xHEnAz8LVcR6KJ9AGFQHR0VTBb== ID Date Data Source [id number] 09/05/2020 07:56:00 PM EST [facility] Name Value Range Interpretation Code Description Data Sanjuana rce(s) Supporting Document(s) Glucose, Fingerstick 322 mg/dl 70-110 Above high normal [facility] The above 1 analytes were performed by [facility] [id number] [place] [address] [id number],[place] [address] ID Date Data Source [id number] 09/05/2020 06:30:31 PM [facility] Name Value Range Interpretation Code Description Data Sanjuana rce(s) Supporting Document(s) Progress Notes [facility] ACUINx0cVfHTLkJz61/CPIrdJBIoo6DmIFvaWFq7WXbmBVFsI8DoGXM0rC8aITW4LHsIZdOpFjKbGeOb lbm [file] CiAgICAgICAgICAgICAgICAgICAgICAgICAgICAgICAgICAgICAgICAgICAgICAgICAgICAgICAgICAg ICAgICAgICAgICAgICAgICAgICAgICAgICAgICAgICAgICAgICAgICANCiAgICAgICAgICAgICAgICAg ICAgICAgICAgICAgICAgICAgICAgICAgICAgICAgIC AgICAgICAgICAgICAgICAgICAgICAgICAgICAgICAgICAgICAgICAgICAgICAgICAgICANCiAgICAgIC AgICAgICAgICAgICAgICAgICAgICAgICAgICAgICAgICAgICAgICAgICAgICAgICAgICAgICAgICAgIC AgICAgICAgICAgICAgICAgICAgICAgICAgICAgICAg ICANCiAgICAgICAgICAgICAgICAgICAgICAgICAgICAgICAgICAgICAgICAgICAgICAgICAgICAgICAg ICAgICAgICAgICAgICAgICAgICAgICAgICAgICAgICAgICAgICAgICAgICANCiAgICAgICAgICAgICAg ICAgICAgICAgICAgICAgICAgICAgICAgICAgICAgIC AgICAgICAgICAgICAgICAgICAgICAgICAgICAgICAgICAgICAgICAgICAgICAgICAgICAgICANCiAgIC AgICAgICAgICAgICAgICAgICAgICAgICAgICAgICAgICAgICAgICAgICAgICAgICAgICAgICAgICAgIC AgICAgICAgICAgICAgICAgICAgICAgICAgICAgICAg ICAgICANCiAgICAgICAgICAgICAgICAgICAgICAgICAgICAgICAgICAgICAgICAgICAgICAgICAgICAg ICAgICAgICAgICAgICAgICAgICAgICAgICAgICAgICAgICAgICAgICAgICAgICANCiAgICAgICAgICAg ICAgICAgICAgICAgICAgICAgICAgICAgICAgICAgIC AgICAgICAgICAgICAgICAgICAgICAgICAgICAgICAgICAgICAgICAgICAgICAgICAgICAgICAgICANCi AgICAgICAgICAgICAgICAgICAgICAgICAgICAgICAgICAgICAgICAgICAgICAgICAgICAgICAgICAgIC AgICAgICAgICAgICAgICAgICAgICAgICAgICAgICAg ICAgICAgICANCiAgICAgICAgICAgICAgICAgICAgICAgICAgICAgICAgICAgICAgICAgICAgICAgICAg ICAgICAgICAgICAgICAgICAgICAgICAgICAgICAgICAgICAgICAgICAgICAgICAgICANCjw/fZHpA4pk kZVpcsY7K9nfXb2IXb4CVW7mr9CcDMDeSLraycVhJc jQYpYwBELsOnzPPdl4AWkpID2TfKKvE2YfM8AsACjqXQ5HQOMxMZOdlHHhNAGcGOXjFxJ8UQQmRCvrQN 0HeSMjNKtnZEGoRKWdXzXcWQQuQLUwCUAlHY5OYXJtW926yaZkEm4ACn8TZrBlJH6tqc9VCSAaCFHiNv tAQeq4MSvwLV8TaDWqbEP4PNZrQQAXDfUmC2ihg1Kl LPGgMTACWDlbDG1Rq9FcnMTbUCz+Yj1QKE7bn5PeDGd4NNQtCQ5znf4ZZCwUOyKhF5XgsVhrOAJns2eu YBItYC8zpAVsIQK0TO2qyzU8NWYyIQsiTW9PSVU6RNFiWbTsFlTmMTJaAsafYHKBOGiQGyVfP4Yuw5Zu PsE5YVTnKvLyRNfeMBDiUqW7TU17tWvmVZ9DZDUvYV ZqAS31YKXqZDJsNv9FOp1WVpVsIK9mpd0WUILmNMYsAbbKMld0EFxjCV2CvACtS7RkrWMni7hHCaOmM3 SZILV2WSUmIx1AYZZaVoIoJCBsKCzgSJ5zOEGyAPVCzCofizT4CB9MZR4ccnNzXN6IUdLdIb1aBn9OAp WaW0EwY2CiLGMbVTVKQIdeKZ6LJOsjGL6rGD7Zg4IM aYBteJ9ydq4HWEYyKVCaHztgri9QSgxcF8R8uQqpOWGwWUMxKVJSXLvmUJ3STNIpRKK1XKQrNGHoZQNT StWiN97aOB2KY7Kcb25jInK9XFHsYiTaCJkeSO07eHbouiFmdTYuyPfxRG7FDk3+DQplbmRvYmoNCnhy UJFINuVpSJVOBcSbWSGvYCQlUVJvQlY2MuZeRi4BMF QlWNKsFPFvEyBqTPAlREYbGVwhQPIkWMJjJAg6YWMqILBoYI2UHwCoBLYpQPY0IJepTHTbFJYgvz0HGH GqJGAuXCC9WbDfKWEtNJQzFHijNOGfNUIxMFquGYEsCAPcFV5COfXlSQZsBHMiWIrpDVLgOYHqxf2WUT BnKMYoZKU5SpJgGRCwUHKiHErwLVWeVMA7UsJ7JTEc LDRrPS1UUzWnFEJtKPw4QYElYQLwQXCjts3HJCYiIOFmSvx4ZzTfWBPpFZWlYGbtKIQiYYP9VfB3VIKe KVXfCL6LWkMoRFFfTLx8QLhwGHVaXCNedu2SGSMnMFCnBSO5FxJoUHCeERSvTLjyRWFfLBLnGRZ0ITNr BRKbJA0RIcUjALIzYVPdCANjZDTuIDCjmh2SCUWuWX LuGJKwFoZqSNJgZKAySSkdSTJvGDXwOsq9JCMhADRgVW0ZJoIhSSPwPuOgQLDqPEOjTZJthd0DSPQvOL VeFlBtOJLwVFXrPGDrCIvkCEBuKMOkYDBgSSMxXVDfRH7EJwPdKANiRiO4XWNmEBAwHCFgfw6RMMNpSO MeYGOyQICxNJIcXKIiBRbiKXWqJRO4NMQaSDMpXGHd QL2GLsAiPKUnHsTyZWhmXPKvFPJclb5MHCXpSZDtQPo9MATtLOPvCCMrJJveRQIlOKP3AFG8RLKjWMSn JX2GLbXlLRVfIoMhVKidIKLtURRsnn5HUCYwTWZpEtF4QJCvAOFqGMOrGCjgBNJqYJF2HUC7CBFtHCEz ZP8INcThZTSeByu2TGonATJfUFGesq8RMCNlWLI3MD eoHJTmSRBbJSEeHShuYSMzMYAfGsZ1CTQhCGWhLN0XQdGmRXSjSBM3RqDsQOReELLqar5RCTCkERC7WM ovVaHjRIZwZIYlXAvtMMAtZCHyIRYcEXVhVWJoJD9CDoBjVIZeKLB6TNQqQMPvVPPvdq1RYCQjOBE6Ro m8ReUwCIEkIGOkPLdoMEYiOSVeZNz8UWEfSNPjIU6V YwSgIBIjBVT5IBkgUEClEQNzop4OUIOsTVZ7LLKzGRQnCDRhPPOlFGjeXSJzCDG8ZAh8RYShHZQsLS8V BoZiQXNcHJCiWfFjIAPaBIToxh7LxTIvkUyouk6HIKiYVq8NuQgsZLIzUTpjGv5gzIQ7PaHcMQKYXm9Y bmZvIDEgMCBSDQovSURbPGMxZGJkNDJmNzdmZGRmYW UvYWUsH4P8MbX7OwDvHVQrIxA0YqMxAkE4BkZ1O8BwDDBgDSX0OKT1GSR0WkdpFVEnR4G+LZ6yMFl+Pg 4Ti5XhqhK4maYtZZl4GME7DN7LUHZMQ8CLUk== ID Date Data Source [id number] 09/05/2020 06:10:55 PM EST [facility] Name Value Range Interpretation Code Description Data Sanjuana rce(s) Supporting Document(s) Nursing Note [facility] JLERGz9pZjNXOuKy49/LUButQUUcm6CdDFxqJMh1QSeuDCPkO5HjEQQ9tF2cMOS6EEgBJzMkNxQjJbOs lbm [file] AgICAgICAgICAgICAgICAgICAgICAgICAgICAgICAgICAgICAgICAgICAgICAgICAgICAgICAgICAgIC AgICAgICAgICAgICAgICAgICANCiAgICAgICAgICAg ICAgICAgICAgICAgICAgICAgICAgICAgICAgICAgICAgICAgICAgICAgICAgICAgICAgICAgICAgICAg ICAgICAgICAgICAgICAgICAgICAgICAgICAgICANCiAgICAgICAgICAgICAgICAgICAgICAgICAgICAg ICAgICAgICAgICAgICAgICAgICAgICAgICAgICAgIC AgICAgICAgICAgICAgICAgICAgICAgICAgICAgICAgICAgICAgICANCiAgICAgICAgICAgICAgICAgIC AgICAgICAgICAgICAgICAgICAgICAgICAgICAgICAgICAgICAgICAgICAgICAgICAgICAgICAgICAgIC AgICAgICAgICAgICAgICAgICAgICANCiAgICAgICAg ICAgICAgICAgICAgICAgICAgICAgICAgICAgICAgICAgICAgICAgICAgICAgICAgICAgICAgICAgICAg ICAgICAgICAgICAgICAgICAgICAgICAgICAgICAgICANCiAgICAgICAgICAgICAgICAgICAgICAgICAg ICAgICAgICAgICAgICAgICAgICAgICAgICAgICAgIC AgICAgICAgICAgICAgICAgICAgICAgICAgICAgICAgICAgICAgICAgICANCiAgICAgICAgICAgICAgIC AgICAgICAgICAgICAgICAgICAgICAgICAgICAgICAgICAgICAgICAgICAgICAgICAgICAgICAgICAgIC AgICAgICAgICAgICAgICAgICAgICAgICANCiAgICAg ICAgICAgICAgICAgICAgICAgICAgICAgICAgICAgICAgICAgICAgICAgICAgICAgICAgICAgICAgICAg ICAgICAgICAgICAgICAgICAgICAgICAgICAgICAgICAgICANCiAgICAgICAgICAgICAgICAgICAgICAg ICAgICAgICAgICAgICAgICAgICAgICAgICAgICAgIC AgICAgICAgICAgICAgICAgICAgICAgICAgICAgICAgICAgICAgICAgICAgICANCiAgICAgICAgICAgIC AgICAgICAgICAgICAgICAgICAgICAgICAgICAgICAgICAgICAgICAgICAgICAgICAgICAgICAgICAgIC AgICAgICAgICAgICAgICAgICAgICAgICAgICANCjw/ zATxV2sflJTzvvR8C2blBz1DLd6OGW2pu9SgNOUnXDhllxKeYbzHZuWdHPHvZseJVml9AInmUH9GnKMc H7GiK2RjPAcgKX4KOLYnCMBnyIOyDMQzNHCeGiB6GKUdEGfuXD0BjJMrQPupKMVfAYSmFR5BBHHeS930 hkDaGA8BAz8SOwMeTT1zzv0FStLtBCQzSdmOQav0XD xfEC0AlNBzbOToAyTvENHCGgVzB1mic5LtSqUhZHNPHRqvSA4Ou8MclFPzTHp+Zj5IWL3av0RkHSdyHl QdUP9fda0JDQtMVvCrP5QrnLttSJ53umMwfwpyZy23IBNedWDOYN1bSHPOpTSaGI43LOqgAn5sIGVuJk 9pET1pMQZaLHZ5LjSoBFSBCP7TCENiTTLdvLKkTTHa ETYWWR1ZFGjoKQB4OosgyiQdwTSfKAdnMS5GQBUjufLjTlTxPTJNLId+Yn8LPV6nu4FkVCoeILGwDH8k ox2SJTgMPuIpN3W3iJXpM3H7QRvfSg4ERIZiJQJfUgSuFIVRZBcwNO2ZOD1bhbU2ZY4QfKRjKJCyHMCk rXLcKEt9A70zeBNbZJmwZK6TSWP+Rosanne+Wq0WWAWzOZ AzRJXjDwUuLNDOZrYqA3NsM1GGr4DwF4AoLL00oAdzatRfCWplAH0ZLM5cXXGlZUOECF0YiUPbwS2kpd CeYmFtJAXNMzIeL49qiXCgNYYsPFDsZKHxRq0EHBMfU0TcxdZbfJzsfkLuFCYpTMIZMA5FXHmlxkHkvD SjwPwdFY66mXtbZN8ZNr8VBzBdFC1gbf9CpBGwJr0X HINqIK7MEQWbQNBdZULuWZO4MTIrCkHtNRnjROBoEOJkBVD8GIFwITZvRD4GNlLfPMRkSHt1DPBoQEGr JEDgvp5AAHHmKIVsSUI7VGKeIATiBXDvWBkwFUDiMOJlUGE4KCKiYWEvLI1QIpZmQDBgPZS1BQLeFXPv QAViig7PEIJqZEKeRHU8HhYdZIVnEPEiNWurNSQnIP YeHjZ9DYToUDDuXU8IAjEmAJKnVGF0CMWfCLHcTGMclh7RLBIhYASuGhe4OTKfSUBnBZDtAKwjEPRdTH DqBMN6DOEbPKOsWE8DVxUuGJNvYLJxUSPzTVQbTDYroo0MXYMkRSOtAJUjWXAcDGBhHFSrYAjnZCGpAC B4Gpt2DTIeDDSnNS3DVaIzKEPzCWF5RLFqVEQoJLTr yr8OFIDrHHNxRbKrTmGoGSPgOXKqREplOSVjPHR7XFQrBKIdGDEtZA2PMpAmIQBhSQf4YObgEQOwXFYz id0RUALrPUNqQQZyCZFuVJGlBZXiIBkbAKDrNQN4UtA8EEFaPROlEO4RLaWtGJXsDXd3ZFrzUGPnMRYd nx2VEXGpBTCoGUEoLDWtWTXxEKKmJRrmPEBeHPSlLy SnSCFkWPLsCS5CSgXiELCyJkJ2LEUwQYQiFOIruz1SKQZjEYJtDBs0AZXqOIOcODVeAIa8esBsiBXzVP b0TY8QV9NfutTnRoOWAc1Ti756SIE1XCXcKz2EA4bnAh0dSCKbLOAXNb9HJYo6HeSjU7C0PDS8PPI8XO B0CBcsNVk5LojgLxu6AoykDAS+IMoqXyV3VQU3MNAq FoloRBN0SGLdBiitBYSvWkxjD3Q0ZO8xBGBOYh4+QLybjGEhmOmfICYIGwXtFxG1XGixOSSHNf1Y ID Date Data Source [id number] 09/05/2020 05:12:00 PM EST [facility] Name Value Range Interpretation Code Description Data Sanjuana rce(s) Supporting Document(s) Glucose, Fingerstick 313 mg/dl 70-110 Above high normal [facility] The above 1 analytes were performed by [facility] [id number] [facility]#: [id number],[place] [address] ID Date Data Source [id number] 09/05/2020 02:57:43 PM EST [facility] Name Value Range Interpretation Code Description Data Sanjuana rce(s) Supporting Document(s) Progress Notes [facility] KCMBNs0pZeFQYfAo75/WIVgkSDBol7RxXRitYUv1QPmeCSCdW8EeOXT6zS7cOOZ4LNbHDyCfSpPsCdOc lbm [file] Jt9Ey1AJe8Y3o/[place]/9sc0x0nGkwFhgE21/6cE/GMm rh+zOwEmFld6WkWvj4vEuDmP6EqbUh9LgvUzUtVKqngkSlalJ4coE8QCmh64B5aRcVThnZqfRKx0fR9/ 1i/2cwsYCbrde0HYXBFIl8oGu3JmY0Fl4e6lk5cpK28c56xW5xsPvPi271twVz1YlY/WLapxZtkWriqH h0xou+IF3hjcczuaCAP47TwUXs1mdbih1cGV1z08tw f+dEYR2Bu9/s1MHq6qxEZSmIxfsxR7/dh092JQ48f7CuTnH2wr/+hN2YPri3u9jPE6zMBqj9eazU5ysI 0z3n8/IfiIACZ58wnHXAuLX6tLkbtkUOS2Natr3s8iukfPzilHbRK+XFYVunk+qhupq+/pqa4NGpDw7O T5G/qkBOl9u5qubf+0rS6e8lpBfx2EQAmgZAsjLThv 624h+I9FQ7GkJX+y6gCj177SuS6jT46R+Yyzf48rix6Iz1x/fhyuP8aejJ2fucB3MH9sm6CFbaVmVZWQ /1hl6fvalahB5mT6Vb7LEyo2qUPaJrOPlwndYq/dhqdWY93bzFxyG5iwEbzRgilR5lHvhrRooagCKuIP l6Ste+s71oIPwaKpq/SArK1OP9BucJpmAtQ8sJb5yy V83c2BPj+HMqhjVOcAiVJfBFQoxJKXy3UfI45bEawTw+3X2d7+k3cLkof0YE1wkK+JZTsPp2Ml9Kq0p6 vQk04kwSpCrpHlJs2nc46WlKd7gdwu1BgrcHXSwRcpAqLLmrGYMscwEK0cE3Tu5mmVF/SMlpMENKwuBA xzhh0vDabcakk1FAMz7hOr2grvckbzeHDXlcda3mYe Qy/OUSPOA111cjgjk6sd6WYAxugcWzYx13VZh5AtmxB/6CfTJGXZc/v5gsrqoQDbrkmq/d0Xjn3dff7g NGlfDPGsm3+uvmviH0eEXxJTSE3cjWEjgxqdg4jedqvpHvJOdn+uryfHp+dVNzCwpJz8yArcJkKJCm6w IigebgM3x6Ce6rkIGzJ9Vi888KZr73pE5t2YP9X60f cqVLLY4lEvVOVc+zFwFNZmoH/xM2eGl7zWol5wO9+iURCKWTpjN1cY0ZQ2qkDpPabuiQAIRCURDoxKL3 n8UbxRQ174vky/In4KFyx6W2IV/ieOpDbsakDk3T+FI4C+KdTfm2BkuE0IWwRwpCyKsylnr4wJwYb4xT bNS79nGFyb/lv/PQ5n1hSmVqM/VvUGLAvWJmMQ2vzt 5xUF2nV/BPpsxy27u4Kz6baA9c5bf559xx0Y8efIWw63q8anHhDiaTVpxlHQtyS6u672KJI5gv42eWSD VjBt1fN0pftEt9Q1UXZAsWVNNv3nE33lfq8IWnGwNqDTOfQoa//qHFct9VRsct7CIQCillr/JVzO+H6b zeNRbmp/ge3zzoPfDKmnChXJ/q4tdhaxbxC92TH0Ji OiFMmZJ6qiyHIb5+zMV56ftB/Olq47W60Eq84EE88mMOAJI1fjaQmT8HTY8qFc3T/fNOKAgAGB8SGYoV cr+ttVEBeZbEZlp//knp9p9wVHutTJ5tEN8FOdPoiYCU1q5G1+P5Nq19THV4Fpwl/lxkG+4arrdzpLf2 kUzCdbXO5+jLX13KIdPNEC1RT3cNg6mnCGukfLTK7E cjY5L9lW/bjBJo1u1if5cQM6Ze7dnD5A0X3mZ2AL0gqqDzObqzDXmboxcnXIYO5SPykD+mfsFZ75dlZV qvQgyS4PJ51+curb setter+UI9kN9Xdc6AOI7xQXFr3dKKza/XWWiTvW//Ac2bMewHsfH4K0eQEWVEhEp676Bb/ [file] f2Ynd3HAo0JDPxVpB9VWH1NMUeAzImKI7OIn3ESyO9OHZ8bUWlSe7POBA6GPfRIoQpLF3LOAb= ID Date Data Source [id number] 09/05/2020 05:25:00 PM EST [facility] Name Value Range Interpretation Code Description Data Sanjuana rce(s) Supporting Document(s) Vancomycin Trough 20.5 ug/ml 10.0-20.0 Above upper panic limits [facility] In cases of complicated infection, such as bacteremia, osteomyelitis,meningitis, endocarditis, and hospital-acquired pneumonia caused by S.aureus, trough concentrations of 15-20 ug/mL are recommended to improvepenetration, increase the probability of obtaining optimal target serumconcentrations and improve clinical outcomes. Called To (First Last):Degree/Accreditation of Person Called:Location Called: Critical Tests and Results Called:Additional Tests that were Called:Read Back (Y/N):Date: 09/05/2020Time: 17:25By: FLOR Montalvo above 1 analytes [address] [facility] [id number], ,[place] [address] ID Date Data Source [id number] 09/05/2020 12:24:00 PM [facility] Name Value Range Interpretation Code Description Data Sanjuana rce(s) Supporting Document(s) Glucose, Fingerstick 318 mg/dl 70-110 Above high normal [facility] The above 1 analytes were performed by [facility] [id number] [place] [address], ,[place] [address] ID Date Data Source [id number] 09/05/2020 10:56:17 AM [facility] Patient: DIANA OLIVERA : 1955 [facility]ACS [facility] A[facility]OMEN LIMITED Provider: ERMA Galeano upper quadrant sonogramClinical History: Vomiting Enterococcus bloodstream infection. Rule outgallbladder disease. COVID 19 positive. Heart failure. COPD. Hypertension. Respiratory failure. Diabetes. Inpatient. Acute presentation. Initialencounter..Technique: Transabdominal imaging was performed.. Grayscale and color Dopplerimaging was performed.Comparison: No previous studies are available for comparison.Quality assessment: Limited exam secondary to overlying bowel gas.FINDINGS :Liver: The liver is normal in size and homogeneous in echotexture. No focal massis seen.Gallbladder/Biliary: There is a 3.5 x 1.8 x 1.5 cm echogenic nonshadowing lesionidentified in the gallbladder, nonmobile in character. This could be related toa "sludge ball". There is no definite internal flow identified but agallbladder mass lesion is not excluded. There may be a small additional 5 mmgallbladder polyp. There is no gallbladder wall thickening or pericholecysticfluid. Further characterization with a CT with IV contrast would be helpful tofurther characterize. There is no biliary ductal dilatation with the CBDmeasuring 4 mm.Pancreas: The visualized portions of the pancreas are in the range of normal.Kidneys: The right kidney measures 11.9 cm.. The left kidney is not included inthis right upper quadrant sonogram. The right kidney is normal in shape andsize. There is normal renal cortical mantle and normal renal corticalechogenicity. There is no solid or cystic renal lesion. No renal calculus isseen. There is no hydronephrosis.Spleen: Not included in this right upper quadrant sonogram.Aorta: The upper abdominal aorta is grossly unremarkable. There is no abdominalaortic aneurysm seen.IVC: The IVC is patent in it's visualized extent.Fluid: None.IMPRESSION: Abnormality in the gallbladder. Large echogenic nonshadowing lesionmay be related to a "sludge ball". No definite internal flow but mass lesionnot excluded. Tiny gallbladder polyp, nonshadowing additionally noted. Nogallbladder wall thickening. No pericholecystic fluid. No tenderness over thegallbladder. Follow-up CT examination with and without IV contrast would behelpful to further evaluate.No biliary ductal dilatation. No hydronephrosis. Evaluation overall, limitedby overlying bowel gas.Significant results reporting tool utilized.Electronically Signed by Bob Ramirez MD 09/05/2020 10:56 AM Name Value Range Interpretation Code Description Data Sanjuana rce(s) Supporting Document(s) ID Date Data Source [id number] 09/05/2020 07:47:00 AM EST [facility] Name Value Range Interpretation Code Description Data Sanjuana rce(s) Supporting Document(s) Glucose, Fingerstick 240 mg/dl 70-110 Above high normal [facility] The above 1 analytes were performed by [facility] [address],[facility]#: [id number],[place] [address] ID Date Data Source [id number] 09/05/2020 07:10:55 AM EST [facility] Name Value Range Interpretation Code Description Data Sanjuana rce(s) Supporting Document(s) Nursing Note [facility] XXMMVx0wOxHJGrJu11/HXQgrDVUvo4ZxSJkhNKu4NHbwWCIjB7TrAJF8iN2lLXY2RVmLWqDxFfObExHi lbm [file] Gah6DCR7YGXnGeB0ZPS1GZC7TbQpQT8XQt5BTrT4SDM0qBWaNm7VHqOsYvCZZrGmSX2GSXa= ID Date Data Source [id number] 09/05/2020 03:04:49 AM EST [facility] Name Value Range Interpretation Code Description Data Sanjuana rce(s) Supporting Document(s) Care Plan [facility] JNMQDr6gHhPKZfIw63/HHGzdTSWbw8EdWYzqKVp2ITtjTWXyY6VkKBQ5vN4jAOP9JAcJBhFyCfHjUzTl lbm [file] F9jz6duxZH4+bTuhwsjWydOvUFT0pqWzORsSaFHy93u3B+InfVXpCgqpeGpKJor3U/bP2H+Ifeoma/zjoUm9 /HjGzOoXHPFNxH2IYlL0/R8bOT+6GeiYpZIzOpWDkzLHwk9z985PYL9/5P8uHUSUH1Gz7hliiM/JtH/v +Aq/LZTIQ4PN0D4DZe/hOKt7nT2IaQius8bngJ58eE V2e0PD7cagI0N2VJw1r4Tv768Tl8xXz6cYs6g0xspafFavuF3gJkqzwMQrp3EYpFfpRN9F+Sánchez/tNN/ A+zF/duZUaGmwJh8NHP9F3yBnyzQ9Qh8reTch6Kgx1I3bZpV9SyAPylfBo9EKgjX2Yzn0gcyosu+EmnZ iRimrD4fAkXDVHb6BDBLHrX0Y8mEKaBp4OpGpMgCzl egn+V0p/Ym+bQ/fjrmR56lVvnezjASLVV6Z+Ke1+hu+KcLlZcy3DzF9cSdYIZJYssepWu9K2RVix/O2g JvVQRafJx7vnUSUkrwVtigp+4NgmveisKEpqvQTCDtww69uEGlXue23PHJ+T/BvN6J7CL17fVj7M6h40 G3w1CP0ENrFAct0XshNDO/CaF4Sn6zqSdGoFNQMoam UczpdVqaZTC1TdSSYys7w+Gaetano/UYfWiX/j1uIYqlCjejBMwtzMr4TcZMfJXCHe/7Hll4KqcurBw6QajM [file] [id number] ID Date Data Source [id number] 09/04/2020 08:51:00 PM EST [facility] Name Value Range Interpretation Code Description Data Sanjuana rce(s) Supporting Document(s) Glucose, Fingerstick 443 mg/dl 70-110 Above high normal [facility] The above 1 analytes were performed by [facility] [id number] [place] [address],[facility]#: [id number],[place] [address] ID Date Data Source [id number] 09/04/2020 07:22:47 PM EST [facility] Name Value Range Interpretation Code Description Data Sanjuana rce(s) Supporting Document(s) Nursing Note [facility] WDWGCu3tFhMGKtWm12/ORWkbNSTtc8YtAVezPIi6EVkqAZEgV8NqFRN7oH0rVKV5BIqNKrUhFgSfKuA5 lbm [file] ICAgICAgICAgICAgICAgICAgICAgICAgICAgICAgICAgICAgICAgICAgICAgICAgICAgICAgICAgICAg ICAgICAgICAgICAgICAgICAgICAgICAgICAgICAgICAgICANCiAgICAgICAgICAgICAgICAgICAgICAg ICAgICAgICAgICAgICAgICAgICAgICAgICAgICAgIC AgICAgICAgICAgICAgICAgICAgICAgICAgICAgICAgICAgICAgICAgICAgICANCiAgICAgICAgICAgIC AgICAgICAgICAgICAgICAgICAgICAgICAgICAgICAgICAgICAgICAgICAgICAgICAgICAgICAgICAgIC AgICAgICAgICAgICAgICAgICAgICAgICAgICANCiAg ICAgICAgICAgICAgICAgICAgICAgICAgICAgICAgICAgICAgICAgICAgICAgICAgICAgICAgICAgICAg ICAgICAgICAgICAgICAgICAgICAgICAgICAgICAgICAgICAgICANCiAgICAgICAgICAgICAgICAgICAg ICAgICAgICAgICAgICAgICAgICAgICAgICAgICAgIC AgICAgICAgICAgICAgICAgICAgICAgICAgICAgICAgICAgICAgICAgICAgICAgICANCiAgICAgICAgIC AgICAgICAgICAgICAgICAgICAgICAgICAgICAgICAgICAgICAgICAgICAgICAgICAgICAgICAgICAgIC AgICAgICAgICAgICAgICAgICAgICAgICAgICAgICAN CiAgICAgICAgICAgICAgICAgICAgICAgICAgICAgICAgICAgICAgICAgICAgICAgICAgICAgICAgICAg ICAgICAgICAgICAgICAgICAgICAgICAgICAgICAgICAgICAgICAgICANCiAgICAgICAgICAgICAgICAg ICAgICAgICAgICAgICAgICAgICAgICAgICAgICAgIC AgICAgICAgICAgICAgICAgICAgICAgICAgICAgICAgICAgICAgICAgICAgICAgICAgICANCiAgICAgIC AgICAgICAgICAgICAgICAgICAgICAgICAgICAgICAgICAgICAgICAgICAgICAgICAgICAgICAgICAgIC AgICAgICAgICAgICAgICAgICAgICAgICAgICAgICAg ICANCiAgICAgICAgICAgICAgICAgICAgICAgICAgICAgICAgICAgICAgICAgICAgICAgICAgICAgICAg ICAgICAgICAgICAgICAgICAgICAgICAgICAgICAgICAgICAgICAgICAgICANCjw/iSQqC0wrrOGychO7 T8meHy7TMq8OXH5ce8LsVRMcRJufgwTwNrzECqPvTM WaKzaCOfc5NRpkJO2KdGOkW1ExR1HsMUzaMI9UTTZwNAAssPMlNAIwSIJdBgC5DIYyDBwoKV3EnHSoJK cpFVUlVEVnRL6VBJLoX519pmCyVM6XPw1DVdMkRZ9urf1TSkExCLWtOfnWEvs2LRumHX9JjPUufRTuVq FfQNFUMwDrX0dxa9LvElYlCLIZBFddDE2Bb2RcwCYm DQo+Cq2QUG2ij4MdGZtiErLyAA2ixc1SEBkDFeDbM9KeqOddUG57icCeuxepHj69YTAqeFZVjCU6PFpg GP0twjhknxPpVVswEa3yUGRsSm6iWQ0mWFZySBM1YiD7YGAOHN7KXSViROWtgQCoJKEcMTHLOM3KMQnw ZYI4QmavwmOjjISnUTzpNY5MRMQepxJxWpArVJMYDH o+Jt4EQI9ug7TbWVpdCHXuJW2hab0PRVhEMsYyG7A7tMErE0J4ODbdNs1OZERkPODmNmDxCGWYYYdvBN 7GVC9lvtS5EI7YuDOnMPRrNWVpwNMoAWp1D72xlLCpJIwjRN0KKWN+Rosanne+Dz4QFNLbSREnGXNnKsEzSX KTSzBoK9TlA3VXj3EkJ3VxSQ69dCvfhoWyJJcmTE7P EI5iUDNwOIHNIB3TmHRbeF2lpfBwFwHcTVYWVqVhP06ieOKrZOIoQVBePPNfLf9DUEBtC9EgafFppPpg xzAhHZXgEULIRV7HDDbcntTyuAAjyRxvZT63gSkhHE2RWt9LAqJcMX4oua8XzAUnXa3TJYMwSZ6WYYGd UUBeFTNqZVQ0RMCrUsExMJfmDQGvFWBmFHL9DRSbVB LgNX3VNiKtGHNqGBebJGlgXBUqIWUkph0YFSSwNCLfJLg3GuThYRShPLRfHNdzVQPzWVYjYXL6RCPlEP PoKN3WYyPrVWJnXAO2ZFMgDGYrKNQneu4MQHDhNXQkKLg5RKLoJCYiYXBaIPfyGQUsQQNlStOxHRVuQB SwZO1WHuTvBHBlYFO9RJMuGQHoITDvik7VMNRkFMHg VuX2WDYmIDChOCUwDDwdUFNnMCF0DMR0YKMlSHIsNM7IYfWuLEZaMPJxVBDdOQRxOUJzoi5IKATuQFJa SEWpYsCqHCVsCVMnFBsxCKHdPND8Cpj5PYOzWXMxRO0QZiFsHRQaOWduRTNyTOVbDMAjja2LDRVbOXYv AhHmQVGaGOBaZCGuRPyyWJJjGYF8BOScDDBxJCUsIA 1ZShEiJAZxHOf7IFPfSJGgWOKsfr4EMCUpPCBiPMLgKRHsDXRzLIQcUHspEKKpDRG5LWPrWXTpXGZpYR 2ESaYkZSVzGJz7GFMzOVMyOLHzei6TAMKfSQKyMSRxLbLbMFGlMAKcRJscMFJtRXUbBKIiFJJcZDFxSC 0AAgLsZSEoFeG7OhQlRKSbQHRsvj9AMASxDHNhPUC6 HBNiRJYkNIWtWEz0qnZcsJMkZSz2KS3PN5PvzoRqLiWILb9Be918ORA2FYHeHv9BB1jkBv0wIPMvXPIW Bh0WFMx2Vbb0RIGpBaJgPKYpThWqJPA5QUFaVvS2CwUrG8T4BjL+XJzmFMXnWWHfSbJ7HJKiTnE7Iwdx MTPqHmi2PfVlBVybCy2eIGDSBn0+NKtaxUUpsQinTDTJFcZrKbW7LVlkABYGMt0S ID Date Data Source [id number] 09/04/2020 07:01:40 PM EST [facility] Name Value Range Interpretation Code Description Data Sanjuana rce(s) Supporting Document(s) Progress Notes [facility] CWWAJb9sUyFKQkIi76/BEFggWBAvw2KvPMfdRHx8OQyhMTMiL1XdISC3hB1nOQM5LFkTJeTnYkBgPiH7 lbm [file] iPDsmFxjABRHUwYcZJS4MScjOCZCXc3M ID Date Data Source [id number] 09/04/2020 05:04:00 PM EST [facility] Name Value Range Interpretation Code Description Data Sanjuana rce(s) Supporting Document(s) Glucose, Fingerstick 352 mg/dl 70-110 Above high normal [facility] The above 1 analytes were performed by [facility] [id number] [place] [address],[facility]#: [id number],[place] [address] ID Date Data Source [id number] 09/04/2020 04:37:16 PM EST [facility] Name Value Range Interpretation Code Description Data Sanjuana rce(s) Supporting Document(s) Progress Notes [facility] CWZECg2mNvVQFfXq61/WWJhjKAUxv7BgVDzvECb3OKxdFKIdG6FdPCD2uE2mGUS4CKkCKoOgFgBuGpD3 lbm [file] AgICAgICAgICAgICAgICAgICAgICAgICAgICAgICAgICAgICAgICAgICAgICAgICAgICAgICAgICAgIC AgICAgICAgICAgICAgICAgICAgICAgICAgICAgICAg BR2ZZQXyRFTlVOHgFJMyJAYsYDSrSSZqRPNqJSCgARQyZWToWDBtQCIjYGHuAVOxIYSzDSBsGYRvEXBd OBHkCXXuPSXiCKHmTKOmIOTpFJNoVKEsDLLgJWRcPEGbWCKgTPRlHTBaQQ6RJUHoNYVmLOQzJMLwWPFc ICAgICAgICAgICAgICAgICAgICAgICAgICAgICAgIC DlFWAkRAXnHPOmBJGnFOOyVZFiHKYgAFHjKNVlMZEoLNVyMYQvETAxZGMkYBAwSESgVENvXQ1DYVBpLO AgICAgICAgICAgICAgICAgICAgICAgICAgICAgICAgICAgICAgICAgICAgICAgICAgICAgICAgICAgIC AgICAgICAgICAgICAgICAgICAgICAgICAgICAgICAg YYZdMS8QROGtHOLjYMXzWQGqPAYyHWSpEOWrDZJzOPTaYALyUFSmLDKiDJInCCAvLSIxSKSdFPFqEHUz KPPhIAVzEMPfIBZoUSRbEISzSHXfXPZgFYCaBRYzDOJuIILqSFBuIZMjMQUzEU9RSYLbXBLwFAHdYOKy ICAgICAgICAgICAgICAgICAgICAgICAgICAgICAgIC ZbEWHaUEGxGKLjZHBiIQNoRLOiBDLyUCLyJXUrNIKsJVLoCUCxFADoJJFyMXQkGTCgWFNxWIMcPG6RJO AgICAgICAgICAgICAgICAgICAgICAgICAgICAgICAgICAgICAgICAgICAgICAgICAgICAgICAgICAgIC AgICAgICAgICAgICAgICAgICAgICAgICAgICAgICAg UYLpGNUxUF9YPKNqVVTxSZImGGNjBZLbJPFlUENvEIQlQRIiRZTeXIFgPTAzDZKeRKUrCIXfBMPrDGLg HWAzGAXcCJDtRDQwWGLzYITkJTVgBQWcDHNbFLTdHOWlFWZuHGYxTADuYUXpSFCpTZ8GYHTmPKCkOYZh ICAgICAgICAgICAgICAgICAgICAgICAgICAgICAgIC AgICAgICAgICAgICAgICAgICAgICAgICAgICAgICAgICAgICAgICAgICAgICAgICAgICAgICAgICAgIA 0KICAgICAgICAgICAgICAgICAgICAgICAgICAgICAgICAgICAgICAgICAgICAgICAgICAgICAgICAgIC AgICAgICAgICAgICAgICAgICAgICAgICAgICAgICAg ZWMsTAPrZVPlXR4EHM07nHSow9S9BSJgLM5wuox/Sx4YVXjupoMugVZmHQ1AAcUcBQ8juk9LAwRsKV6v di2DUUbPUdUbE7X0dAMhOMDtERBWMzWzL30mMMtcHe02TYalINOzOxViGRv2Ww3UDjAyB9fdCBBgNtJ1 DPJpQhR5CWKzTdOuUJfmVI9Dq4ZqaOQbYPv+Pg0KZW 6bs9MiCRdpDsIuFA4euf7FSQjWLhNbN8RvxgJ0WFV0TAFpZo1JBIGnSGLzqZZjDMYhCIFOSmNqS4MbwS 86FGQROz7+NUjpveSePgiEQpN2FYOrv0DjRLl6AS5TDHIhKHf6gOKmJVQkB2Fqs0SgYo65JKSzJdjgXT Xckx3lIGVXy7ngwjKjqjbzJNXjDMXkJx0cVA8ySEAk LWQbEtRrYKEVJG0DLAFnFJNkkMVkJVPyPQYXDH0KULoxXTH5HhxxtkQnbHFrOSlqBR5JOMRqnsBoPouw MCBSDQo+Ys1DIB4aa7XmVPpzALScLL7ptr1DJGdIVwWmB4H2sGJmM0S8LAqpFv5ZDHMlHGMgRaSsTWQF UEplCW0DYG2irzI4ME3JgNBwCHYmHHBqeIQaVDz4D3 7mpPJwUDgyLP2CEFF+Rosanne+Cv2WBMGzNXUxRPAsXvMhADGIGiNdZ3MlC5OLh9SzP2ZrYM21nLppjkPpBD ckJT8KYN9vQSPbPFDDDN1KyIBrgK9liyIfNmPrQUASYeCrC11bjRYrSYLuLWM9HYYaOu6AFTKpG1Cnlw ExbXhefwYgPYRkEXHQLC9DAHffmeXafPQsoEmpAZ65 lWzwGV4ENa7WIhUcKA4eua7UgDLqKg1ZOMQcWF1BXASuJAZaGHSuBFH8FTLkUwEaRBeuZXAuOXYyQML6 SIIvCMKhLV3JSgSfWCWoCqXnVaUiIKGqMDXnft5LZHRgCCLkZdTbTtAzYDJhKIWkQIpiSRUiRFFlZMW4 KUPrRPFjID2RBhKdWBOnHID7WQvxXFXgOAOkdb1ZQV PuHHVsAdKfKaMjSSKfWBScGMcnKTBdBBM1KRjaWYVhMAGsRM0VRuGbAJJkVDM8JHBgXEZrWQNhyz1CHA RfEHXpQnf7OzHgDLDxLOVkNAmkQIFkGOF1CVHsLJTdZVVxWZ3QZeXhDTUzIYmjRlozHKQdSVTmvx1UQV LoBMOjULP3LAAxEBTcXTXqQRyyCIXrFJQ6Arr8XSRi CABfTJ5UAzNeICBsTPy7HurzVYDkICKoqw6SEHKtNKGsEHwuTMJtSIHeEIYvKYcpBYNsAMBsBKX0AVIa OCLzLU7EUtYnIFWzEeYgOMHiSLYuIIVbgu7OKPPbNSKsHDA2TuZfKBZfCICmFScaUFGkUDCcCaZ9XIOq MDWdSU4TExGaUIIePaI4WrSpUTYrEMJgpq6CVGAkOH DtCwl8PfHvWLSuZAVjNHtrYDRzDJBbDKT8QDDwUMTwNG6MFeUtPMWzKiD9OyHhKZPtCTIqqh8PUNKvAP QwDOG0JUGiUOXdVJFuBQdkVUMfQVQ8IjR6HPMgAPJvBC9GSzRyGTTfKnD4JlEbZJOnKQRocx1DKKJtIC LfCcSjPfFhFGPiOTFvLBrwYQIkFYY5Gwd6UEVgTZOk PR0KPiRyDKIsSaN2AhngZVBpBNSirf7VxXKzhWvegg5WXNnBRn7VtIblGUBxMYedXh7ohVUkRFAnKCBR Kp6CqlCdGSQdVNQYREoyUGIiXIc1MtIoWIqoTENgYuAzFOU9KzC1SiS3VRqoSOs0SyYvGoW4GFCmDND4 YFKgHoGiEjH0FersHwl8VkwhI7L9SVb2TqI+IF0g DQo+Qg5Eh8PqvfT6aoGvNDucCeA2Vx1YQZVDK6OFWb== ID Date Data Source [id number] 09/04/2020 03:59:04 PM EST [facility] Name Value Range Interpretation Code Description Data Sanjuana rce(s) Supporting Document(s) Progress Notes [facility] ZYXKSy5wKkOFIsGn47/VPGfuNLWxo2CfADeyAAx1QMgxFLXqK5RwKSL7aK0dKQN5JNvVMrTrAfCgLbX1 lbm [file] zFJlUv8UYsWiXqwWFuOeME5XUTs= ID Date Data Source [id number] 09/04/2020 03:53:12 PM EST [facility] Name Value Range Interpretation Code Description Data Sanjuana rce(s) Supporting Document(s) Progress Notes [facility] YGBZVm4kThQDIpQl75/RKPcyWHViy8WoHSdxNGn4KYvdIXPoB4GfXPO2vU7pDCD1ZGrCItRfRsWdWvV0 lbm [file] AgICAgICAgICAgICAgICAgICAgICAgICAgICAgICAg ICAgICAgICAgICAgICAgICAgDQogICAgICAgICAgICAgICAgICAgICAgICAgICAgICAgICAgICAgICAg ICAgICAgICAgICAgICAgICAgICAgICAgICAgICAgICAgICAgICAgICAgICAgICAgICAgICAgICAgICAg DQogICAgICAgICAgICAgICAgICAgICAgICAgICAgIC AgICAgICAgICAgICAgICAgICAgICAgICAgICAgICAgICAgICAgICAgICAgICAgICAgICAgICAgICAgIC AgICAgICAgICAgDQogICAgICAgICAgICAgICAgICAgICAgICAgICAgICAgICAgICAgICAgICAgICAgIC AgICAgICAgICAgICAgICAgICAgICAgICAgICAgICAg ICAgICAgICAgICAgICAgICAgICAgDQogICAgICAgICAgICAgICAgICAgICAgICAgICAgICAgICAgICAg ICAgICAgICAgICAgICAgICAgICAgICAgICAgICAgICAgICAgICAgICAgICAgICAgICAgICAgICAgICAg ICAgDQogICAgICAgICAgICAgICAgICAgICAgICAgIC AgICAgICAgICAgICAgICAgICAgICAgICAgICAgICAgICAgICAgICAgICAgICAgICAgICAgICAgICAgIC AgICAgICAgICAgICAgDQogICAgICAgICAgICAgICAgICAgICAgICAgICAgICAgICAgICAgICAgICAgIC AgICAgICAgICAgICAgICAgICAgICAgICAgICAgICAg ICAgICAgICAgICAgICAgICAgICAgICAgDQogICAgICAgICAgICAgICAgICAgICAgICAgICAgICAgICAg ICAgICAgICAgICAgICAgICAgICAgICAgICAgICAgICAgICAgICAgICAgICAgICAgICAgICAgICAgICAg ICAgICAgDQogICAgICAgICAgICAgICAgICAgICAgIC AgICAgICAgICAgICAgICAgICAgICAgICAgICAgICAgICAgICAgICAgICAgICAgICAgICAgICAgICAgIC AgICAgICAgICAgICAgICAgDQogICAgICAgICAgICAgICAgICAgICAgICAgICAgICAgICAgICAgICAgIC AgICAgICAgICAgICAgICAgICAgICAgICAgICAgICAg WELzRNQuBMYaQHMxOEPzMLRqUVSjUXKhURReJVd9P9wvBRYmOMPrKO9eLUw5Dy8+BNxOImBvTJK7wnJw jT6WZW7qy3UjFBweCADcl2RhDVi4VC5OMSPoQMcwHT1DQEuabo4CGZZcVIUwrUYAd5fjMpNtTQM0LPSu OcnoVR9XMVRqE9vyhqErJGKrJFALYT9FUqZhU0XwyC 59BGXMFs9+WXsyosLgIuaZAuB2KJSca8QxHJd1RP7MQXXuCkxmr5BtFeYaYPEQHFpxGK1IBKT1ZMO7OU WvGk2IPMJnD762xcXwHO7HAm7RBpLhXP2gaw7YDlXtNIXnFdrYTqx6EKwuQZ5WoQBwQExApp0zsaCogo IRu4UbdfEskIDVSESbI7SyRRibyWPvfjBgEG2nGQUb Oc6fPH1rCSOeNPZwUlLgPPXBAG7BXJHpYJFfsEEoFXVkJWQZJR3QVDrkRAA2HstfapHpdYUiGEqrGU7T YXJlbnQgMjUgMCBSDQo+Mj3QOH9oz6OlTNpcTuEvGK2fnm3EHVzVMkHvR9J9jXOiV0A4ESplJs3ZXDBa CIVcXwMlYXMELSujXQ3RZR2qviX9CZ4CcLUsQDRbIF CaaWXkZNd3M07bfNOjCIznPI6JXHB+Rosanne+Pz8XLQGuLUEoJTFrSuTlAUPVBoMfO9HaS9JBq1MmM7CjTA 18sJhqdcRxNHhjFA7WCM6zIBZqHKVTYR9GkZGfqN8zcyNuGCFrJINUSgZaB92qbDYsZJYqSXX6OIPoGv 4OGUIxZ0MigbPthXtngxCzAMZeSLLWOP9KVWytlbJk xSWjsMiaNL51kSioSN1GPy3KMmYyWM3hgr4RyCXnVx1DFGKwAV2MXCUfUDNlPDNdCTJ8YNNgMqPiEOah DPWpDSUrNLH5RGCxGLGsKL5UJsOgCLClWoGjYtunLJAtIETlir5EZGWlSQWtBZc1YdDeOBMvWZPiMMcz RESwNTQyFQE1IKCsCJGdGC0NRuYgBIDiKGCuMWxkAO CxJJEdep8KKYSxHLTbQMR7AACsMHQaJVVcDKgdVTNmGJRcBAT4AVSbIYEaUP8UQcEpNJDiELC7CfScQE MiNXLjjc8EYKApJAFaDjlgZNYjIEHsFJEsWVwzIBNfENUcPBE1RIOzOFTcDR5ZRfFaQZAaBFWnQqRnWV FwUSHqur4QGYNgCYQeFOK1SiSrGWIzBGDcEOvgJHIa MRS4QTwdLXYoLYObJY0ESwWhFFLxCAW8LDroAHJxIBJojf0WGAVcQOKfLlVpVoYkMMJgKUMrLUgbHBTj TDI5KrQ3VBZtOLMwGP5XOnIiIJAtJEn8HMVoSDDnWBBmyg1HQDWeFKNsHQX7EfYgRSDkMBGjBAhcLDDp UWH4QqW0MYYwUCRcNJ6NBeHuHAIyYQx5YIXkDSIjDU Pice5CCNYqBEKrVMj1YhSlSTUzSPFlDRpnANFuYXS1XBEtGYZnKAQoBA9ZGjQzQTDvBvZqDOOkNCPoDE Kjzr6BOLHuOZXpUWU9XbSgWONqSLUoKRumFMIlVGCoZKj8PBUgMBMvZK2IRgKiVCKuGqYjWEPgWPSiCB Ebus8DAGLrUSNaXxRrUAKtLUJvZZAsNYc6cdVluOTq RVe3IR2JE7LpyiTeJxxOHs6Wp164PCJ1SWUsUt5II9riSw3nDJLvHQGVOt1GRLe3O3QqHUBiDPY3TdS5 KuWpCdI9DWR2Dvm4QLMrYTD4UBI+GCbrLkMvOSVnGwvzMPsiAMG5Fom3NbHkBON4NTUqSHpoHY0yNBIF Cj4+UUsrtVHteCpeXEEXMkOrXQO4MKmpGYUKAh4H ID Date Data Source [id number] 09/04/2020 02:55:45 PM EST [facility] Name Value Range Interpretation Code Description Data Sanjuana rce(s) Supporting Document(s) Progress Notes [facility] ROHHKg7tApKONjPv20/BDLntIOIwb9RqLIssMDz9RQuzWVBwB2WiLUR4cN0nEQW9GDrQQfBxWzEzIkQ4 lbm [file] zEy2C6nF34OXrlT6z/inpatient care manager rn+Gg25Ak5/+PV5++3I+Plpd [file] JXnfpVZfjGxrINHKRgEuBfb1GNdhADNDMc2U ID Date Data Source [id number] 09/04/2020 01:50:00 PM EST [facility] Name Value Range Interpretation Code Description Data Sanjuana rce(s) Supporting Document(s) Glucose, Fingerstick 340 mg/dl 70-110 Above high normal [facility] The above 1 analytes were performed by [facility] [address]#: [id number],[place] [address] ID Date Data Source [id number] 09/04/2020 11:20:06 AM EST [facility] Name Value Range Interpretation Code Description Data Sanjuana rce(s) Supporting Document(s) Progress Notes [facility] TUKJRv3tJxUEBsQf05/FHKgkKAAkq5JyZHlbDPm1TEkiMNKxB6OqSLW0eV6oKUT5ILfKAuBgHgXkCoH3 lb [file] [facility]++V3IqKYPMwlLNYWhNN6sTt8JLhM4QvUKxkYpQec7VlphQX0ldnq0TMSF5V8LQfjbbLtJvssLZnJu [file] XSANCj4+BMudbNZtfUkaUJGFQtO1Arr9FGbaVIAGCx5H ID Date Data Source [id number] 09/04/2020 08:45:13 AM EST [facility] Name Value Range Interpretation Code Description Data Sanjuana rce(s) Supporting Document(s) Nursing Note [facility] EHTUPx1vEiDQFwCu38/HRTweAEIce1IcWAxgHKh9QZrzFSEvV5PxJHK3zQ0bBHE6PXbBFhEpWyMzTpO8 lbm [file] AgICAgICAgICAgICAgICAgICAgICAgICAgICAgICAg ICAgICAgICAgICAgICAgICAgICAgICAgICAgICAgICAgICAgICAgICAgICAgICAgICAgICANCiAgICAg ICAgICAgICAgICAgICAgICAgICAgICAgICAgICAgICAgICAgICAgICAgICAgICAgICAgICAgICAgICAg ICAgICAgICAgICAgICAgICAgICAgICAgICAgICAgIC AgICANCiAgICAgICAgICAgICAgICAgICAgICAgICAgICAgICAgICAgICAgICAgICAgICAgICAgICAgIC AgICAgICAgICAgICAgICAgICAgICAgICAgICAgICAgICAgICAgICAgICAgICANCiAgICAgICAgICAgIC AgICAgICAgICAgICAgICAgICAgICAgICAgICAgICAg ICAgICAgICAgICAgICAgICAgICAgICAgICAgICAgICAgICAgICAgICAgICAgICAgICAgICAgICANCiAg ICAgICAgICAgICAgICAgICAgICAgICAgICAgICAgICAgICAgICAgICAgICAgICAgICAgICAgICAgICAg ICAgICAgICAgICAgICAgICAgICAgICAgICAgICAgIC AgICAgICANCiAgICAgICAgICAgICAgICAgICAgICAgICAgICAgICAgICAgICAgICAgICAgICAgICAgIC AgICAgICAgICAgICAgICAgICAgICAgICAgICAgICAgICAgICAgICAgICAgICAgICANCiAgICAgICAgIC AgICAgICAgICAgICAgICAgICAgICAgICAgICAgICAg ICAgICAgICAgICAgICAgICAgICAgICAgICAgICAgICAgICAgICAgICAgICAgICAgICAgICAgICAgICAN CiAgICAgICAgICAgICAgICAgICAgICAgICAgICAgICAgICAgICAgICAgICAgICAgICAgICAgICAgICAg ICAgICAgICAgICAgICAgICAgICAgICAgICAgICAgIC AgICAgICAgICANCiAgICAgICAgICAgICAgICAgICAgICAgICAgICAgICAgICAgICAgICAgICAgICAgIC AgICAgICAgICAgICAgICAgICAgICAgICAgICAgICAgICAgICAgICAgICAgICAgICAgICANCiAgICAgIC AgICAgICAgICAgICAgICAgICAgICAgICAgICAgICAg ICAgICAgICAgICAgICAgICAgICAgICAgICAgICAgICAgICAgICAgICAgICAgICAgICAgICAgICAgICAg ICANCjw/qLLtN3qdqVGdgdK7U7hzPb4LFm7YUO2pk3WaLMJwUHcioyJwBbwJBuWvIPJrIqfAVrl1IHxz JC7ZwWDwN4BgM4AgKAgvDU9MSEIgOKYjzDInLLPqJP DgEwG6DTOoVZlfAH8XiVSmIIykUIPoCXBeCT8KSMSuB345nkFgAR1KUy8AUhMgRL2was6OHpDxCDCrHh tEFvz8DDwqIS1WbULodOPsBoSfDRLUOmNpQ5sye1QuEvVcXWRYMUjrBG1Gl2CywBTfZYn+Ge8FSV3po0 XwQQqyRcMnWC8hgx2XNOiWDsNqG1PviWobMY04kmPk pnvaTe68BTYdzPLQJOCmNYKMPMFiURSngBjuFp5rFMMbGq9gDB8bHLYnJFE3OyRkNKAVQO0JJHOdKREk qHDuWSBuCFNSLZ7QKMrgFQI4OwiyfkDxmHKgODheBO5FITNdqdDlNiIqPYBHVPb+Bs5YLB7bn6XqTWxk VTNsMW8nnx9OJJuLOwMtL4F7rPXmK7N8ULtrYy2JIG KhFPXrNkRxMCIKBDivEA5QYE2znaW8XT4VqTBuJNDxJHSeaUUvTGa3A78ruOBeRStiQW1NJSZ+Rosanne+Pg 6VFCKfTMLwPIKjSfHuTOYIGtXbZ7BfK7VGz1UuS5LeBN39pLtasiJzTQhmUK8STR9ePDRrYPWATN0HxR GdnV6wtnLhPfGtVCTISjHyP90lzKGjILIlQEElQJUu Ki3LWPGmD1ObbtZykQpphwEnJAPzVIXFQK6MPJohuqYhlZZjhCojRE35tKqkYA4JLw4EKiMdCZ4ggg0S rYVaGr6AOJMfZZ4VUKAqQWWtFVKjGNN3EKOgKiIsSTmmMKEyZVPvMRH9XABbRVHmHK5JUsPnNGZfGJm4 GlXzBMIsGQEgzq2FIQDqJANkBUNuKiGiTHYyWGKgRU bfTOZaVNQcYCB3WAKfOLZzQX6XMwGyGZWlQUQgHGZnYDMbXMVeel4OWJStZEGzRDBtLABcDNYiDHOiVP nrIWPuOKArHwJ4UAWuOOOgIF1BClLkHTPiSGG8XdqnDWXvQZOoyd5CDTGcCSAzCke8MzZaQRFuYTEcMA vmENYqKMFbPiByRRAfMJGcZA9AFcAlUPIhIYB1LXlh XRVoYFHloc0XDXUiNBBrLHW6VGEeELWiLWDhUCscEYVyOZW3NFUpSAMcGPPiNY6NEqXvKZMzTZE0DDXd ADKxLXEmbg7MFQHpDDHtXbd8YCLlFMImJLRtVLnyBCGqXXW5SfJ7TDQsSCUlIT3ISpZaWCHjTZnsBGOa XTOlPPBhkv8SKPUjQASlODL9FuRdJJKkCKFsFIsyXO ZwNQL3DBi4SWAbDGBeRQ8KRtYjSVMeDOv1IORdCMXrPCMdjg9QPYAdQCKrSQK0KyPoTPZgDDSkBPiyGZ SnSHDbSZS2ACOuSVFyAT2OJaPaQAPuBpI7WcVkDDYfJRAxbh0QBCKzSZSpOSjjPpDfYEHeILQrOJi1kc IsmDDcXEn9XU4VK9CwmgKcNzHJKq2Yu089LWL1WNNt Nq2HZ0skDi3nDESePCNEHd3JPIy1M6PmHqb8EDMqSKX1WOMaHTZ5QLA7WGJlUSLhZFa1PBM+LYl1YONs DOt1N3YdQlJ3KnWsZCG9PKBjTfYpQrOuEDUqMj2nIAZQGz6+IAcqaRYthKxmXKXGAqQqFDO5JVesSLCE Rg0K ID Date Data Source [id number] 09/04/2020 08:42:23 AM EST [facility] Name Value Range Interpretation Code Description Data Sanjuana rce(s) Supporting Document(s) Progress Notes [facility] EJDVMr3iKcRKXeNx37/NAAmwLTAqa0TxATevPYr5NCnvGSUzK6AjFJK0dP9uNWO9LIsFLcWhWgOyLqA5 lbm [file] SFXuVNRzWyOqEGIiA3I0ZhLqAN2EEr9CRtC5VAR1xGSpEc4KPsW3DlCCWlMnAJ3UCZj= ID Date Data Source [id number] 09/04/2020 08:35:00 AM EST [facility] Name Value Range Interpretation Code Description Data Sanjuana rce(s) Supporting Document(s) Glucose, Fingerstick 351 mg/dl 70-110 Above high normal [facility] The above 1 analytes were performed by [facility] [id number] [place] [address],[facility]#: [id number],[place],DEREK [address] ID Date Data Source [id number] 09/04/2020 07:14:35 AM EST [facility] Name Value Range Interpretation Code Description Data Sanjuana rce(s) Supporting Document(s) Nursing Note [facility] VBNYKm2wAiGKInMm32/MRUraWQNfh4KmWEmkKWd0EAeaNAZkD5UdFTP3fR2gBTQ3THzKYnHcEePlBlA5 lbm [file] 0gDQo+Km6Mx2RjtoV9kkFgHZucArUdHX8VXKQLA8YSRi== ID Date Data Source [id number] 09/04/2020 06:09:00 AM [facility] Name Value Range Interpretation Code Description Data Sanjuana rce(s) Supporting Document(s) C-Reactive Protein (Non-Cardiac) 44.70 mg/L 0.00-3.00 Above high nor mal [facility] The above 1 analytes were performed by [facility] [id number],[facility] [id number],[place] [address] ID Date Data Source [id number] 09/04/2020 03:57:10 AM [facility] Name Value Range Interpretation Code Description Data Sanjuana rce(s) Supporting Document(s) Care Plan [facility] FNDNAz5mJrSGVyKt49/HVZebRUJjw7FnOWhiRHc5DAoqYNRtU6JpALM4gS0mIWC8FZeVJxHwXhUlNiQ1 lbm [file] XCSxXAO8WI7jQBISZb0+QTkrtFUnyZcxGZOPQsO1KWu6QNovCCHLJi6A ID Date Data Source [id number] 09/03/2020 09:52:00 PM EST [facility] Name Value Range Interpretation Code Description Data Sanjuana rce(s) Supporting Document(s) Glucose, Fingerstick 250 mg/dl 70-110 Above high normal [facility] The above 1 analytes were performed by [facility] [id number] [place] [address]#: [id number],[place] [address] ID Date Data Source [id number] 09/03/2020 06:31:55 PM [facility] Name Value Range Interpretation Code Description Data Sanjuana rce(s) Supporting Document(s) Nursing Note [facility] NHKOPh4dEyHRGgCj54/METimJRZwg3HnMFapTSt5JJciXEUxZ9ZsAIJ8kA1eTJN8HBlNTkPnPwYhHfO6 lbm PzEyjTPbAqQPZjTgsQHxWtQOgfYflkxNOkFG4AdIO1PEIfC09yALXxHJBxE5UmXYDrHgJ+Mj1SWOBchS JpQD0EPlqF8PvuImgVWY6b9A9tI4SoosTI8W7hTimvLXoFuRwZJANHmq5SjQhMpHQeKbm/PrueWdvnZH YupHyH8rT+rhk636jEASny//4Qx0yifErF/+prXlp1 Donohue+/Lrq6BG1Eol/TCd6BNSgn7+h/pqYzy/slkluM/yXyEYgErS1w8bHBpIBp5mzLzK5MDo1ps+MbeXb Tg5PbGfP9peEkd7IAwrTykBwgilxMFoPR8Kq9Y9iNaP3Z1u8iAZZ4IOK1treamXjbgF7/wBXG72HFJH5 mPz7d2dp5BSaF+UnD1jMw9eEsXrkXC5+6SFtN0gkJe q0FH3IM4CfiHBQttzCh/tq2imv7aj1tMIxBktjPLZ8Yl2If3GKGwoAfKXJdyQkiPMy0u4bOofqZB4YyS FdZnOgNsnGrPvxB2c0lmc6/jBJNjN+HPqg1Gs9mFFo62eIBV3QpkgS0Q8SbUO4pYhKCs6dUHWYTFNx63 R2nfeu98ba04jcvYlFl7a6JDsrV7X7hP+lykc1qb56 cqdiQ2IVMLhJqkZs1PRchOr/sC59+qtKfpUWLPsXaWYiyeb2l3exwe52+etHrc/tT3+rwevtxa+wxjFA 2IJjz6uPfYFfnxnGMajx5U6addfOCj2P3tewOaYoP+o+sOxTj89ULUdhLuwlL4Oh7cSi6kWzJB768jvU oD9o/uJ7rBNvd4AYX/Juliana+Fhvs/bHuohr7Le+fPuq [file] Jb4PUdP5DXH1aUGnGf4DHvZwBsHMUaDqGA3RBLy= ID Date Data Source [id number] 09/03/2020 03:52:00 PM EST [facility] Name Value Range Interpretation Code Description Data Sanjuana rce(s) Supporting Document(s) Glucose, Fingerstick 251 mg/dl 70-110 Above high normal [facility] The above 1 analytes were performed by [facility] [id number] [place] [address],[facility]#: [id number],[place] [address] ID Date Data Source [id number] 09/03/2020 03:41:06 PM EST [facility] Name Value Range Interpretation Code Description Data Sanjuana rce(s) Supporting Document(s) Progress Notes [facility] ZFVCBq0eKrPISwOq20/MBLdzAVZgg6JoSPnuBNz4YMgqXEYzG3UrDWL7wD3dXKA3SDvSQsUwQkBsDsG7 lbm [file] ICAgICAgICAgICAgICAgICAgICAgICAgICAgICAgIC YkGYHkUCYsDPNuOLTdBCTjCWGrLR3EPCKkWNJjRKPwBHVuJHDiJJTiZQYjSFKxJOYvBMTbUJZzRBAiBA AgICAgICAgICAgICAgICAgICAgICAgICAgICAgICAgICAgICAgICAgICAgICAgICAgICAgICAgICAgIC LdUY8VWWEuTNDjMWDoGNRtKXJpCSFvNOAjCPKnXWBt ICAgICAgICAgICAgICAgICAgICAgICAgICAgICAgICAgICAgICAgICAgICAgICAgICAgICAgICAgICAg PPWmYDTrWTLsNHMqTS0HWZQeFYTaGDEkLFIkVLYeTIAeEXWaPTJnKWPvUHIpMSVjBHXfTBEmXLBiEELd ICAgICAgICAgICAgICAgICAgICAgICAgICAgICAgIC LjWCHlNQYuEXMmZYXlQUXuWTQvOQOgTO7TEXDzDDCgUCTsKXZzFJSmUNJmTOBjIHVdTNUyHHYbLLVkHE AgICAgICAgICAgICAgICAgICAgICAgICAgICAgICAgICAgICAgICAgICAgICAgICAgICAgICAgICAgIC ItDAFpWM0IHIIgWVYsQPUbOMMhEIQpWFPrNATdESNs ICAgICAgICAgICAgICAgICAgICAgICAgICAgICAgICAgICAgICAgICAgICAgICAgICAgICAgICAgICAg JSQkKPPwJGIvMFHfGMXxHE2MDYVhAHVtCEOoBNExBPClWPUkAOFdGEIhYTVlATRsOVYeOGOtSCAvSOYe ICAgICAgICAgICAgICAgICAgICAgICAgICAgICAgIC IrJDIrBLFpBKQiUUJbCEApJLFeUPVpKLYuOY0QBKQjUSGbTJDqJUFsJIJyBPXpYSTmHNVaCCMyKBVcQP AgICAgICAgICAgICAgICAgICAgICAgICAgICAgICAgICAgICAgICAgICAgICAgICAgICAgICAgICAgIC TbZWWjSNLuEB2QTEEvTZXsBMAqAARdEPGhWRBuZHMh ICAgICAgICAgICAgICAgICAgICAgICAgICAgICAgICAgICAgICAgICAgICAgICAgICAgICAgICAgICAg ODPgQTNsYDVtYOEfMTBtYMKlGU3YMAMxCWCvHAOiUXOoKWHgAQHhDIAfKAShSRIbBMQkYGShQBTtDYBw ICAgICAgICAgICAgICAgICAgICAgICAgICAgICAgIC HzEVXrQZFdYFEqSFKcTUCtOZChNXLeFITdTHSsVQ5KVR65kPOld6U1MTGeCZ1exso/Ze1JVOlqawBnxJ TjCF2TNdZqPQ0hhb9FCiTwXH1oaq1DPLuWVxVaJ2O8xIKfUMQdWJEBCxLpU94zLKdpGc14LZwrJIKtAw AaRRx0Vo8PMuIhN0jyGCTgVtE1DDJkLiHcYIqiHH8F b5RifRVsFYi+Fp5RYY8gs6SyLCmeNgQgSN1zcn1UCTyMDdHeU4UwqtD0GUM1OXKfUh2IERUqCIRyiWQo DUZmHRJZVuEsW2OwmE56LCJKNr3+GLatnsKyPxgIFzY9TDQqw0UgNJm4CM4LAJKmISa1yHVhDUEkG1Wn i7YqOl70OTNaEmurKQmrJMNjJLPzoeIeamRqSWXHNI wmGKBoDs7tOX0dUFAvEZKeXcEsVBWFGF7ENELbCFWyoQAbOZYqCCAFAR2OQWsqVWZ2MherkwGbbJElBK vwYF0FPSJaatJgGWrzVBGPXIk+Za5COC2xd6MnTRbuIGKmNT8xho7RAFlZZgXtC1Q7nCCzH7Q9HTzoDj 7QALSnSJAdGVRiGGGDZVvoOH2KXL6whpK3TL5JqNRo MGQiXLOnqKEpMUo7F63nlUZuKZanIB4RTPE+Rosanne+Yp6UFPOhUBKfSGRvUfPjKQTULaLhR8XbD0LFn7Ul B2NaRS63cLjwfyUxJVhvSI5VHX6qSYMxFIXHJT6WuQOruH3pwkBzZqPbONLUBoKmN08rgWKaYSXhFZY1 PYNcSa1HSSLwB3OdubWcbMhktuWjUQRjSFJDPQ6SFC eqgmDxiGZdxIpzDI97zGysGO5SCr6VXkHxKU5wkn7HfSBzZo8BILPoUW3KJTOyZOTpQFRuMKG9FZAcEx TaGHjoWGIoVZLuBIX8APRwUXVsTH0LSrXpQTJxVLW5LFIpSGCnMDZqpx7PNNLeMPToHjL4ITAbGJRjYK FbRDapMIZsOACzNDW5KDKpRMUtOZ5NEqKjSNSmPIOo WOLoVTJpJUDslg1ADVFhWXJzCPEwTfTpZGHdZGAlVCijZZFnFJJvCfP5GGXzCKMnHH2EEmMtASCtAGU8 EfFbDMQrPDLcst1TQCBcUVWrCpx5CWAhKIRkZZJdERbmDWDvPJUhDsU8ZUSoKCZmWH6FFlTjAXDgZMD8 UYNuMGGoMUKdzu8OEOIfCKFeXXA7WINwRRSsTVHgTN tzYEIhZGK8CCK1WMIeZWNjNI8ETnAnBDUlQJXgVIeeNEJoZNQagh9JPEHqQRHnWGAtUjKbMWAjMXYiRR wzOBOsVSK0HVM5VHHaTNKvGG2SHhDbMOSsKBsrAINxLUAhXPZozt4MHIXhPNPeSdL7UnAvXMGdVGBlZB npXKPjXBA2WDA8MIVxJQGrPO2EKcNrRZakEEWXGae8 PZhgV9b9RTMlQA7HJ1Vnh6LnMEqdEEMYFEluWH6ecvOpNOWgSh4ZC0gVJmd3JeKrFMDjBGj6TINmERTd KOJ0VzK9HERrFTI7YsL7Bu7uUVNlL1UjJTY5DgPdJWOsHvAtNEQjMlFfNsPwZLZ3VXmgPsAxBB3DWu6Q CtW7HNA2hSAlOv0YRub7PU6XBXZEZ8MPOa== ID Date Data Source [id number] 09/03/2020 02:01:43 PM EST [facility] Name Value Range Interpretation Code Description Data Sanjuana rce(s) Supporting Document(s) Progress Notes [facility] QODFOu8lGrZUMfGl16/FXAmyWIBqz5NpUVlmJXb3YHosLOLyC1BgTYO5vO3kDBR2GBkEBoSdIkMhCfN1 lbm [file] Sk8WFWROX7NQCu== ID Date Data Source [id number] 09/03/2020 01:23:46 PM EST [facility] Name Value Range Interpretation Code Description Data Sanjuana rce(s) Supporting Document(s) Progress Notes [facility] KYGLCx4qYnGPCqVy55/KXLxrHREsv3TaZBtbUTo9YDymQTFyO2IwZRP2iT2rFJK9BSjUGlFuNtCfEdK3 lbm [file] [employer] Person+OJv6bcl00iZpYQ/y+RAkipzbnaEtMwhP8Q7av+7J89vA+oP2wdMya3oxa+c33a/bwPiVu3VP/PYc1 [file] zcLuT9Zw7HAQODR8URCz== ID Date Data Source [id number] 09/03/2020 12:44:00 PM EST [facility] Name Value Range Interpretation Code Description Data Sanjuana rce(s) Supporting Document(s) Glucose, Fingerstick 362 mg/dl 70-110 Above high normal [facility] The above 1 analytes were performed by [facility] [id number] [place] [address]#: [id number],[place] [address] ID Date Data Source [id number] 09/03/2020 12:32:11 PM EST [facility] Name Value Range Interpretation Code Description Data Sanjuana rce(s) Supporting Document(s) Progress Notes [facility] RCRSYl1fRsCFWnMs53/KVYmlMLYzq8TfAPbeHKg2ERxxUQGcZ1UvLBL7sO8jGOH4AOkLHlZhYsIbRrZ8 lbm [file] ICAgICAgICAgICAgICAgICAgICAgICAgICAgICAgICAgICAgICAgICAgICAgICAgICAgICAgICAgICAg XIBzXOWfPCEmJQSoQJKlCBTdHIGgFGOfKGSwFI6CVLWyNGMoCMPiGQOcEAIlBNQrKUYcYTCbTDJjKCYs ICAgICAgICAgICAgICAgICAgICAgICAgICAgICAgIC AePLJgUWJuEUQqEMOnJXYvKBWmPNRxXIQbFOHcGZUuGMDpTFEdLM1TKMZlHLGgRWBsMFZqKJLfXOYjTS AgICAgICAgICAgICAgICAgICAgICAgICAgICAgICAgICAgICAgICAgICAgICAgICAgICAgICAgICAgIC EeIEEmRBCgGDWpCLRqYAJuKXVkAQ2XFUDgYPKhKUQi ICAgICAgICAgICAgICAgICAgICAgICAgICAgICAgICAgICAgICAgICAgICAgICAgICAgICAgICAgICAg EFZcAQWrHVXzWSDzITBvWXDnGVVjZSGsOSVbBDIgWR7DUIDcLNQuGFIfAWXzIBChIBKqMVNcKDDtXCXi ICAgICAgICAgICAgICAgICAgICAgICAgICAgICAgIC YpPHImSQVgWZKbRQHkIOTvRIPmBVVtFLRhIPTdUYXhGZAgEOBgDJCaTR4SRJGsXXChWWQwUVHeIFTyMS AgICAgICAgICAgICAgICAgICAgICAgICAgICAgICAgICAgICAgICAgICAgICAgICAgICAgICAgICAgIC BdLKUoNGXuRNEpLLSuTFUtYTDiKJCoFC0SCWUhWYOu ICAgICAgICAgICAgICAgICAgICAgICAgICAgICAgICAgICAgICAgICAgICAgICAgICAgICAgICAgICAg XHAcNILqESYjFGWaBOGtQTCfMEJuCASvAOVoEPLtKWNqTW0VQEMoPRBsPBToYIEqQKXjPZFhOOEoIUUf ICAgICAgICAgICAgICAgICAgICAgICAgICAgICAgIC LwEQXoGXBtZDAdVWXiEOHxVGAzEYOfUHAhJKVuMGViRAMyHQIhYLThGGJoBQ8LBBMbPHQqNZDnCBMkDV AgICAgICAgICAgICAgICAgICAgICAgICAgICAgICAgICAgICAgICAgICAgICAgICAgICAgICAgICAgIC VcBYZpBSQaESRfBZLwNXHxAKXtVYMhSAPuAA6RNYXd ICAgICAgICAgICAgICAgICAgICAgICAgICAgICAgICAgICAgICAgICAgICAgICAgICAgICAgICAgICAg AIKaBTHyZCXzUXJhEESoGOVxBXCdLTRrBZDlVFVgWSEwUMUnIR4NSS66qCSnx9V1VSElBA2aycx/Pg0K YQhwilRqsHJaJK0WSdMnJA3fds3RTkCmLB0dko5SCF jYHoCtT1Z7dYUgSLYwZAGZIsBnW80kHGamAo11TAksFVYgZjUsQHa2Es5YQjJlS1frIZRdEmY2FGQjNw E6WKHlUfE2OIWpRpIrZWGkYGLiGT0VISEdX443ugEwIO8TJn4JGzPgEF3fky0WCAAbTBZlBerBHsa7XU qrBB9BdJFcoSC0JHEmLEAVVjJjZ4jzq1JmSWTgPHGE CTxgMA3To6TnaYRrFPl+Pt3YWW2gx3QpTPy0XMRoTV7dia1PNJgJTtVwS3DdjMztRLKpy5tqTKAwYH7z zHUxVPV4PI8efElwgTEVNT2flDQgy2m5PXseMOHNCCZzrOKeAtQ2ZxNsLnXmVYI1NgjaXR5pKSqqQK4I XJR9OCvqXFDpVAKeV7wYHuWnBCyoZIIdlTqpDV5QBb BsA0XaavKsoCY8TXBmQOUCPi8+LRosqoBwCzrCWgIyQMUrk0NxLGa7QS1GWZKgYLswBX1YLYDohA9nZO nlAC7SKuXvMWZsHLJVLiGxM14hqTDmTGd1D6KuJdBpOSJzVplhPJTeBGmzHeVdGZHfUmAaXKqoGD1+ID 4+LIpzHE4IUUtcqeDeQUCaKl5LGWPgIZJaEI0xJAIh WCIwN2K6pNxkDDUHTjNcT2kpgqvcQH9aMCCyQ088hKploiReZEZtWVEkMt6SYDJnBEP4JEUnqAKtYqhx WIXWCBnvTG9RpWOvWUC3dU7wJItcOKXfSIVrE4iULfBtqHryPZ06zZqevhBwmSQxICe+Fb7TEK1rj3Bi NQq8adZlRTaeXTDaCRkrGGIyUFXiDVJiIQO6RQL0RQ NQAjJnIHBjTEDkSXjqQVNbTBGzdr8FEPNcQYIwOOw6GKVzGNMgMGFvSCbaHIFiWPZeCew5EYIwUNAbPB 3SNaNnGSVgCEWqYSghEKArULJyan7XLHJvJZFnGyZ5QYZzKVHgDRKnFMmiPOFqNHPoHyv4YSEcYKTsTT 5CYjOhIJOjSXSzLsKzLTHxRAFmhp4TYTMmVWXlKJNk UXZmPOPzNBHuQFevOLBvHUD9SPGcIXCaENSlHL0MSzUjNJUcEKk5WCssTPTrBKDksy6HKAYfZMQgKOU4 RvOzRBToFTQxUFinWVBzINO9ZFIpRUUtNXLfCM8QMtGnDPZdNVW9GEKhPQXdQJUroh4BNVDnPARtBCBl RqJmOGRoLZKbODcqKXAvZPZaBFHsXYQsRCCvYV0UHl RgGFChEWB7VqZhMCMvDSDxvr8CJNJzIVTvFOv5IZRxUUNuPEKvEDrjEWNpPLIjSVReNBOdOZHdHS5LMv LvTXTcFiJ3PVLqRGOpQVPbag8YHKYdMUPiRGpoUqUpNRFgHPQvDYwwXMXqRDZ8CKZ6PGGkSOXdLA6WAr XfDTEtJgGpYIExVPXsIAQimm3UKBYvCPGbSXZoXZAs NHDnTHYnMLpkZWMuEHN1ZtI3JQMeVZUsFJ1KBuFcHJOhShJ1EzEwWXPdWMBhzy1OEINsNORiChfuGjOu ERXlLXNqEInaVYBgZNI8FuV2BLTlOMDlBY7WUqVxBZDkYgh7ZZLaYNMkLOWwhp9IVXPlCYDvWGVkXeZs LWWtEQArOUsvVZGqLPQ4AUD4GRCrNTZdQY2BKyTsCF PnCtvaXWHbVZMsIMEbvo5PRYKrWMToKCQqJcXwQWFfDUTxEVjfEBFaKUVvAjS5PJUfCUEzSL1XHjVbSY YuYuP7RODbHCQoHVDpvd2SOYFtWKZrZUDfDWYtMUYeVIOiHGmvNLVoFDRtSLbbTPOrSVWcND3ZJrPdZD TvWtI3NmZdJINfMXGrry4RBEYvSJAtIQu7YhLtXCGo TRZhKTwjWERwYKJoNKJ2QLYxOBWnRM8XZyLiUPJzUuD5GAZaLLXmRJOrcx2RKJErAUPzBdp6MxQnMIUd FFBbTTqeWVLkKEH0KRD2BPYsOUJkPO6OIeOkMGguVVBNFas8OBugZ0f1NQG5Lu0RM3Ypn1BqQOWyZGBK FBptMD6gvyNvFODqRi9WD6nKQjmkIYLgHYK3FETeJJ XsMKPsEEI7RoEvDMT8HCG7C7KaVU4vNJD2CCIgRpB1B2E7TzDpSIIkGmLpOsGbBsO1GEGvHOD5IiBbYR 6JZg8YIaX9QWT7sIGpIb4XXcBcKgCSGkGqJH6JDCi= ID Date Data Source [id number] 09/03/2020 08:37:36 AM EST [facility] Name Value Range Interpretation Code Description Data Sanjuana rce(s) Supporting Document(s) Progress Notes [facility] QPTEWk8zUeNBDtLu68/DYUvyUTVlk8EwQVoeLBe5DGywCQVaM4PmLXD4kW2tOCL6JZsFUuTyAxTeNcO0 lbm [file] AgICAgICAgICAgICAgICAgICAgICAgICAgICAgICAgICAgICAgICAgICAgICAgICAgICAgICAgICAgIC AgICAgDQogICAgICAgICAgICAgICAgICAgICAgICAg ICAgICAgICAgICAgICAgICAgICAgICAgICAgICAgICAgICAgICAgICAgICAgICAgICAgICAgICAgICAg ICAgICAgICAgICAgICAgDQogICAgICAgICAgICAgICAgICAgICAgICAgICAgICAgICAgICAgICAgICAg ICAgICAgICAgICAgICAgICAgICAgICAgICAgICAgIC AgICAgICAgICAgICAgICAgICAgICAgICAgDQogICAgICAgICAgICAgICAgICAgICAgICAgICAgICAgIC AgICAgICAgICAgICAgICAgICAgICAgICAgICAgICAgICAgICAgICAgICAgICAgICAgICAgICAgICAgIC AgICAgICAgDQogICAgICAgICAgICAgICAgICAgICAg ICAgICAgICAgICAgICAgICAgICAgICAgICAgICAgICAgICAgICAgICAgICAgICAgICAgICAgICAgICAg ICAgICAgICAgICAgICAgICAgDQogICAgICAgICAgICAgICAgICAgICAgICAgICAgICAgICAgICAgICAg ICAgICAgICAgICAgICAgICAgICAgICAgICAgICAgIC AgICAgICAgICAgICAgICAgICAgICAgICAgICAgDQogICAgICAgICAgICAgICAgICAgICAgICAgICAgIC AgICAgICAgICAgICAgICAgICAgICAgICAgICAgICAgICAgICAgICAgICAgICAgICAgICAgICAgICAgIC AgICAgICAgICAgDQogICAgICAgICAgICAgICAgICAg ICAgICAgICAgICAgICAgICAgICAgICAgICAgICAgICAgICAgICAgICAgICAgICAgICAgICAgICAgICAg ICAgICAgICAgICAgICAgICAgICAgDQogICAgICAgICAgICAgICAgICAgICAgICAgICAgICAgICAgICAg ICAgICAgICAgICAgICAgICAgICAgICAgICAgICAgIC AgICAgICAgICAgICAgICAgICAgICAgICAgICAgICAgDQogICAgICAgICAgICAgICAgICAgICAgICAgIC AgICAgICAgICAgICAgICAgICAgICAgICAgICAgICAgICAgICAgICAgICAgICAgICAgICAgICAgICAgIC XkZLGkEZSnDEFzHECqSVt1D4efIQZjKFDuTN3hCEa3 Jz8+RXcHPrMrBTS7duOjyW1WHN6gw5ChMIdhKEYgl4VmPSs9BB3WOUZgUKcqVA5TDMqmrs7CFNSzGAHx zGTAt3fkLmLkEGQ3CXBbTicbZS6QSTKyP0shzaRbWKAyFUYWCClbSLOYRAbvMBMQAUPqHDCvHgUqEKou GF2Lj9PceCQ1TNy+Xm6SZU0bd2BfGZsaNqPkML7jid 3AZIhVSbXcK4PunnA0YDW2XSQbZp8XLHLgKJErwCRoEbEvKWSBBqCkB8SdhN29WVYKRx1+DQplbmRvYm dMPbP4TOPel9ZzDJa6KE4KLUOhJWu7cWBrMMOiV5Cek2HwOb67PFQsGqllIBwddXcqmfYrZT1nifaqVD 8HSFP2ELTgPHetGdReYUReNFhfOmXPSOrXXjFgN6Dk z3DtJyR8QVGmYhEjYRoxNZSiGyI4FG35kZvkOM7EXFXyDTGgDJ41RQA8WGWhWv4INv3BRyAmJP3tqu4P UxxtJGCjRzyBMth8JCchFF8UyRUuH0SfdVEnr6zVJcSlW1CTRSE6VZOjHk4JRAAyFfQgYQPcKYkpFC9z TZRzEABHgAxjtxN5PG5EXQ1bedPmBU6ACtVwQi7kXd 0GVaQkE0ZmG8BzCCWdRDDPXKyxDS5TBZibUZ6tLV9As2MPsLTlfV3klq0YIGUcRWLpPvibum0SByxiV9 U2xSdpZLDvMgUkFMVMBUkfUA6TMZKmPEK8GYQvKLAtOMDROfGrA09jFT7XO5Itu02pFkY2AIUyVrJrFY pcQA69uIbfffGrgGFxxIicBG2DWq9+DQplbmRvYmoN RxfgNDSTUlGuOheHPvXnQASjDIIwCENlIwG6GmGgTw8KMGLzPJIfHJCgZvEcELSuCTUiENuiJLAmLWWz Sgf5GVAsPVRnQN7OUkCsHDKrQJIgQGFmZNUuLPOytj4QIXJbLKTlEQB5FcCqSTYxOSFmARprDQBqXZQh XQidKCOyYRGzPY5SXeGyIRBtFIK1QdBgBPImVMInxi 1QOCAoFZRtHFL3GoBsBFSkTVLcBPfzTXMkNNE5IbKuJKXvYIOlUJ8KSyYfCIYzOXmsMtNxQNBnNAZrna 2TGJVdXNGpCtR9QSIrDNAhRKKpLSpdWJZyLHP5CkEbAIYkSWMkHC6BRbDwXALjGZg8NJbhDTMdHGBnhb 0DHCJxWFDtCTFrATBqRNWcHYMcXYuyVGEjLCH8AmPn COReDGNrXY4NQyNjQAJeTFs8LGznXHBaDDEngu2OJWMfFRXmPUw6NNHmXYGqXITkCIuuZHFmNVMnQUU4 YLUsFOVsHZ8SJhWkYNPhELJsLKfvFGEbLLAtab3CBMYvKFLjXxG1AnKwYRVyCDFnPAaiJPFjYEHmOKLk RDRrPMDrVZ9YUsGcWTQbKqHnKqKbTYOqIKLddn5FJB XmJLZtMQI8XoOsMTBwFIAlKSssEPNqKPJ1YPU5NBKeQAKfOY2DIyIoYSVzTeFmKGVrTALuKIKybz3NCX ZkFXFnWJY0IqXcKXTnQWTeWQllHBLlYYA9VnMhSHEyDKFtIC7EMoUvCCNeKoC0LvNbKADnMRFcdr1EEK HvOSMhBta2BzPnAOAvYSSrHJefZOWbQEV2FLLfKRVn TBGbIP4KMoDvYKOsPIKwRMMdYTNxEGDrqb6AYBQqILL3ZVA5ELPkKMMlIZLfPBvnPMEaLCQfXCc8YQTp AZVhAS9DXdIbASGzYVYdYNEqCHYkDMElnn1LNUZqOVC0RTJ0ZdPfWNQvDXLuHUneTICqAANkJxFkQIIj BXXmLU9ABwMwGLBjKSAsQywtGTQfXDCaat5FLNSdJL A5IoE9BXNfQCEhPXVbDPpjRYQvOVNeQsg0BKPmZUVwMR9SOiMjONpqGFUFNdk5TJkuF1y2DIFyLL8TR6 Bmm5QuWfkdRRTHGGqlAG8czxUwMBPnZo3NA3zXNnajDKtdJnMxPVN7V7LjAzMcROD8UVIqXhtnWorhRD StAL0tKHOeCFThKRNyVqlyQkTfKYXhIdm3LTYbKEKk TKTuUCD7HbEdXD2CEt8VDrO6VKS4iZTfJe7QZCZ7RwSDZjBpBG7WMJp= ID Date Data Source [id number] 09/03/2020 07:59:58 AM EST [facility] Name Value Range Interpretation Code Description Data Sanjuana rce(s) Supporting Document(s) Progress Notes [facility] RUJNFm5nYcNMEzIs55/GZJhwFBOea8OuUNwmHIl8PLcwUPMlW1RnWAA6wT7hWFJ1ZRoSMqGxCxPpNzH8 lbm [file] ICAgICAgICAgICAgICAgICAgICAgICAgICAgICAgIC JdAMYnXNAtVJYsTIOvMKGbRCScZEOuCELvOOYhHIHyAXLdONAsXHFfBPRcLDVfIFPpLQMhIWZsBE1VZO AgICAgICAgICAgICAgICAgICAgICAgICAgICAgICAgICAgICAgICAgICAgICAgICAgICAgICAgICAgIC AgICAgICAgICAgICAgICAgICAgICAgICAgICAgICAg NVOmEUWjRD7VEVPqMDMyWIYqNBDbAPLbLIQcCGQsTOQxAKXqGNDbBHVmEYFaPGBjZVLnRHJcKFEjAZNf KYLqJFYrXAMaSZYxMJKjWXWoFZTdFHWaDWQiZGDfXZKzTEKyJLIzNBMvWVRyWRQqXJ1ORPTcEXIvFTDy ICAgICAgICAgICAgICAgICAgICAgICAgICAgICAgIC AgICAgICAgICAgICAgICAgICAgICAgICAgICAgICAgICAgICAgICAgICAgICAgICAgICAgICAgICAgIA 0KICAgICAgICAgICAgICAgICAgICAgICAgICAgICAgICAgICAgICAgICAgICAgICAgICAgICAgICAgIC AgICAgICAgICAgICAgICAgICAgICAgICAgICAgICAg ZINxEHHiOFPnRA6ZHKMqACDlRPFqOHIzBASgYAXgPWKePEAsZDQeRPAuZIWnFSHzMXBiLUFdNYMgDJNi ELNjJNOwVJNrPHXiEIRvYPNkBBNuDPBpTUZkKHLfQWSxKREcHHJkGMNyAODaXEPbUYRgII5LULQtDTBe ICAgICAgICAgICAgICAgICAgICAgICAgICAgICAgIC AgICAgICAgICAgICAgICAgICAgICAgICAgICAgICAgICAgICAgICAgICAgICAgICAgICAgICAgICAgIC XvIR7WCYMaJECeZDQkSVLdXYYmQGGaLZQjAPBcWPRoLQFcREHeMZHtFHQpLWTcFVMkOGHuDQNkCVZeIM AgICAgICAgICAgICAgICAgICAgICAgICAgICAgICAg MAMfXANiSFBzUYLlSG4WEWUrPLRqWJOrUMNdLCXpKEFoQVYcCDGlYUAtXXWbUBSzHUCgCCSwWGZoHVCb FYBkUHTeRCCaJAGuOFPpDWLxAKIhGJFxZBKeWLHxXGNsQAWyEBUnDZZbNPPeXLXsNIKnZZOsFB9BYE95 zODzl7I7LROqFQ4cxal/Cz9NPKfgdwTaaHIcAG3KIs FgVS0idn5KHrSiDX0srj9KBNoHAcQwE1Y4xDEtEQBtNFOKDyGwC63vYKzaWo68SCaxTQLgGdWfRIc0Zt 9YOpOyQ2ptSTSxJmL4QXNwKoTaPFkyIU1Pj9EuvVYvTEs+Ud6BOU3dd3EzMNcwPcLdPM6ufz9GDSiLDs DbG3GadiU8CKH8ANCtEw5OHJEmEFUqtEXmHjRfTVSQ FiJmW0VgxL28DATKZj4+JGkfqgShAugLOpT0QQSjt4AiUNc7WI2IJJBaWBx1iSYqKBCpS1Ddp7OfSk76 ZVRkJphuC5ZjVJLqLZAgKbQapJcsDQHhAVKbIz9bMN1cWLTgXOB7EdE7JCYFAO8SLCXfUZNwdRYoIQUd KNWKTA8OOKrlRGJ4QhrxrhJrlIZvJOoySZ9CXMZmmu QgMzYgMCBSDQo+Wr0SYO3tj2ZxZVqgPXBiIV3knj8UUCtOCmYiV3S2yTYfN1B1NCgmGv2NIYRcHPAbUm ZmHTOLSPshCZ9MZH0pamH1YR9YzXKtNTPmABSyyHYyETy5D42atWYnBRuiAX6EXVT+Rosanne+Ev6PKUDkDL FjJPEhEqRySVZICrOkA0MaI4YCc9JtG4QvDH51kFze oaDnUJcsFK0AKK9pBAFzXBFYFX1FyNYzjF6zstArCbGcYNVLRrTkY35oeMCgCMVqEHE1GLJbEc7GXVZv O8FajaUgiJrzisQgIGUhLNNIRU0FQQcytiRmbLZdaFniAQ68yThvXL3CRb7VEtSvGF4pyw2OfTGjLw4O WVVeYP5PGDYrTQTpKVByFKA4KRYqKqJtIQmiRVIzDK IrSWX0XRLeEENyLU0VPeKjQZYxGen4VyToAWWrYDJyin0EDRZyIWNtOKH0TXKaZHGeTEHeSTgzYAXrBT McPED3QYIsZFTmTK8JPgGsWCMgKYWjDVznQMFvHZDysk5VLKCrYTEoBtZ5RqArRUHuZFPmWXleFCMpIM D6XpOiQPGoDXBcKV9MUvJqIRIyGKN1DZOfFQNkYGHi hc2QFOVvSKNhFYCdKyNsDVLbPQSzCCkyKNIiSKB5MUa5HHEzSBCzQC7EMrYaBACgYJN0WIHpJTQiUANr mw8KDDAyALTgOLy1RJQlTCTsUPWyLFquHOWmJEG3KfW6YNCzEWUqSZ1OBmBiWXBjYQc4UQVoOYAtEWVd oe0HVKNsORCtQQu2XPOoZIDiFAQnIKjwWNQqXBK9HJ k3XDEcINEiPZ8DMmDhLMOtWNlfLmXwVLDhKQGrzw4GAENqNSXjNIZ6WgHuXCEgGBDwZUueVKSsKUQwDd W5WFPvQOCdUG5GHsTdOJUbVqR9SXadAKYrUSOgfl7NDKVnDZMjRSD6JvJbZIWvROCiJJxxHLFhIYZjUj lvGODiGHKtAV3TGoOpTBDaDyZ4PwDhEJSnNPEobj5N DXVtMKLaKbjrKoXqXIYvXRVfMMdwULYoQBEaCDy5GMKjGAAqBB3CZlRqMMRlHmMmVwDpLSEdNCWmti6G GFEbVAXuOEEnCgYyASEeDJWfFAbdFULaCGD9CvE1SQAfDVPyET2WHeMgXBTyVqz6CFzaUOPvPJLawa8H PCLbVNYcJPy0KvSbXRLbZUOdVNgpWBNzPDV5AWA3KV ZpIARoGE7LJvBkRWSyOxvyIYOuQYEuWEPbqc8NLDHyUYDwPWB7FoKoYHIzGJStDMfiGEMuTZI0ZDK0VP YsWAYmZU6PCkAgEYPoTxThJupmZXCnWAOxcy4JBZAkAIWfMNG0OlNuRTGmDZTsWJpcTTIzIEFcHXE6RI PtEELlNC3MZvXiTORiZfD3GOFrIEWdHRKmdn2OoDFu xVaguo6NPRiMEe3ZhLgsTDT3UCujEv2wlUPbDEFsQMXQBr1RpqXrJWYxVZSFHJmwKEVxFWJnJYA1ICBx OvsoCoC2NIJeVHV1OYb0ODH3I8QcPrzkHmV9WrEzAUqbXTIhIWVpCITxSYTbMmwcPReqMdnaMpDiSBM+ BE7aWPo+Hp1Gy9EkgdS1ocRvDMtxUSwmMA5USNMTZ1QYGp== ID Date Data Source [id number] 09/03/2020 07:55:42 AM EST [facility] Name Value Range Interpretation Code Description Data Sanjuana rce(s) Supporting Document(s) Consults [facility] POWFMt0yLfMSGbGi48/GVXbxFUAxw9ZaOTwbDDw5LKmpQZHuP8BcAOF0mP6tPWA7TWrKGqOaHjYxVmH8 lbm [file] ID Date Data Source [id number] 09/03/2020 07:36:00 AM [facility] Name Value Range Interpretation Code Description Data Sanjuana rce(s) Supporting Document(s) Glucose, Fingerstick 296 mg/dl 70-110 Above high normal [facility] The above 1 analytes were performed by [facility] [id number] [place] [address],[facility] [id number],[place] [address] ID Date Data Source [id number] 09/03/2020 05:55:00 AM [facility] Name Value Range Interpretation Code Description Data Sanjuana rce(s) Supporting Document(s) Blood Urea Nitrogen 19 mg/dl 7-18 Above high normal [facility] Creatinine 0.65 mg/dl 0.67-1.[address] [facility] N-Acetylcysteine (NAC) and Metamizole villanueva ve the potential to falselydepress Creatinine results. Baseline values before medication adminstration are recommended. Patients undergoing treatment with phenindione will have falselydepressed results. Patients on phenindione therapy should be tested with an alternativeCREA method.Toxic levels of acetaminophen may lead to falsely depressed results forpatient samples. Glomerular Filtration Rate >90.00 mL/min/1.73m2 [facility] GFR Reference Ranges:Normal Function or Mild Renal Disease,if clinically at risk:>or= 60Moderately decreased:30 - 59Severely decreased:15 - 29Renal Failure:<15 Please note that the MDRD equation requires an additional adjustment forAfrican-Americans (multiply the GFR result by 1.210).Glomarular Filtration Rate (GFR) is estimated based on the MDRDequation, which assumes a steady state for creatinine (Yany Int Med 139/2 137-149, 2003), as recommended by the Nationaldney Disease Education Program in conjunction with the National Institutes of Health and the National KidneyFoundation. The Oxford method used in calculating this result is traceable to IDMS standards. Glucose 305 mg/dl 70-110 Above high normal [facility] Sulfasalazine has the potential to false ly depress Glucose results. Sulfapyridine has the potential to falsely elevate Glucose results. Baseline values before medication administration are recommended. Calcium 8.6 mg/dl 8.5-10.1 Normal (applies to non-numeric resul ts) [facility] Sodium 135 mEq/L 136-145 Below low normal [facility] Potassium 4.0 mEq/L 3.5-5.1 Normal (applies to non-numeric resul ts) [facility] Chloride 101.0 mEq/L 98.0-107.0 Normal (applies to non-numeric resu lts) [facility] Anion Gap 6.9 [facility] Carbon Dioxide 31.1 mMol/L 21.0-32.0 Normal (applies to non-numeric results) [facility] The above 10 analytes were performed by [facility] [id number], ,[place] [id number] ID Date Data Source [id number] 09/03/2020 05:55:00 AM EST [facility] Name Value Range Interpretation Code Description Data Sanjuana rce(s) Supporting Document(s) Total Bilirubin 0.40 mg/dl 0.20-1.00 Normal (applies to non-numeric results) [facility] The above 1 analytes were performed by [facility] [id number], ,[place] [address] ID Date Data Source [id number] 09/03/2020 05:38:00 AM EST [facility] Name Value Range Interpretation Code Description Data Sanjuana rce(s) Supporting Document(s) WBC 8.06 x1000/ul 4.80-10.00 Normal (applies to non-numeric re sults) [facility] RBC 3.69 x1Mil/ul 4.70-6.10 Below low normal [facility] Hemoglobin 9.1 g/dl 14.0-18.0 Below low normal [facility] Hematocrit 29.7 % 42.0-52.0 Below low normal [facility] MCV 80.5 fL 80.0-94.0 Normal (applies to non-numeric resul ts) [facility] MCH 24.7 pg 27.0-31.0 Below low normal [facility] MCHC 30.6 g/dl 32.2-37.0 Below low normal [facility] RDW 19.0 % 11.5-14.5 Above high normal [facility] Platelet Count 145 x1000/ul 130-400 Normal (applies to non-numeric results) [facility] MPV 10.3 fL 9.4-12.4 Normal (applies to non-numeric resul ts) [facility] Neutrophils 88.6 % 40.0-74.0 Above high normal [facility] Lymphocytes 6.0 % 19.0-48.[address] [facility] Monocytes 4.8 % 3.4-9.0 Normal (applies to non-numeric resul ts) [facility] Eosinophils 0.0 % 0.0-7.0 Normal (applies to non-numeric resu lts) [facility] Basophils 0.0 % 0.0-2.0 Normal (applies to non-numeric resul ts) [facility] Immature Granulocytes 0.6 % 0.0-0.5 Above high normal [facility] Nucleated RBCs 0.00 % 0.00-0.20 Normal (applies to non-numeric r esults) [facility] Abs. Neutrophils 7.14 x1000/ul 1.92-8.31 Normal (applies to non-numeric results) [facility] Abs. Lymphocyte 0.48 x1000/ul 1.20-3.70 Below low normal [facility] Abs. Monocytes 0.39 x1000/ul 0.14-0.97 Normal (applies to non-nu meric results) [facility] Abs. Eosinophils 0.00 x1000/ul 0.00-0.76 Normal (applie s to non-numeric results) [facility] Abs. Basophils 0.00 x1000/ul 0.00-0.22 Normal (applies to non-n umeric results) [facility] Abs. Immature Gran. 0.05 x1000/ul 0.00-0.02 Above high normal [facility] Abs. Nucleated RBCs 0.00 x1000/ul 0.00-0.02 Normal (appl ies to non-numeric results) [facility] The above 24 analytes were performed by [facility] [id number], ,[place] [address] ID Date Data Source [id number] 09/03/2020 04:06:50 AM EST [facility] Name Value Range Interpretation Code Description Data Sanjuana rce(s) Supporting Document(s) Nursing Note [facility] MNDNQm4rVtBVSuCb13/OGSdqQFXrt5MaQCeyFJg8FMleOICkP1TqIVR7nT7gGSI0WVgUQeErSkGrSeQ5 m [file] eiDMW5IyAkVlHqIJUwGUFmSwLhNTBsXlAfGX7UOl4IRkZ7PKM4cLVuTk2GZbXwOpVKLgCzAV8GZFv= ID Date Data Source [id number] 09/02/2020 11:30:59 PM EST [facility] Name Value Range Interpretation Code Description Data Sanjuana rce(s) Supporting Document(s) Progress Notes [facility] QVPZWx4iYbGVSyKb00/UCPadNSOyd1FjLDwwOSz4BVpuNSDhV7QbMSU0mG3qUIW5TRbINcRkAePxCeB3 lbm [file] AgICAgICAgICAgICAgICAgICAgICAgICAgICAgICAg NKVxCXJmICBwKTVhYTAlHPLlJU0ZWOLzGGVtBHEaPUKaVTJmTFTlIOUgBUXeNYDrIHJjKLFeNPMyIUMg ICAgICAgICAgICAgICAgICAgICAgICAgICAgICAgICAgICAgICAgICAgICAgICAgICAgICAgICAgICAg IV4AKYCoFFYzYQBdDIYlVEZtSASbAHUjZQYlBAPjAD AgICAgICAgICAgICAgICAgICAgICAgICAgICAgICAgICAgICAgICAgICAgICAgICAgICAgICAgICAgIC BsLIQqZTHaCYNfBI8NIQErBKHcASRwGOGlCNDzEEXtVOVgHMCtKFEiKEWiXZAzQTWrJGYtLIEpRQCiGI AgICAgICAgICAgICAgICAgICAgICAgICAgICAgICAg FMLwAHUjXTGyOIVtGPCuGDVtNNTpRV9UFIVoGRCtQRJzXZQvQBFeCVIzHHTiFTNpTJYzYQPzQKEbOFQg ICAgICAgICAgICAgICAgICAgICAgICAgICAgICAgICAgICAgICAgICAgICAgICAgICAgICAgICAgICAg VHZpCL4HDVTkRGZjZYJtWPUnPKAcHLMzVSKsAWFeOG AgICAgICAgICAgICAgICAgICAgICAgICAgICAgICAgICAgICAgICAgICAgICAgICAgICAgICAgICAgIC JmGNTdMTKvNYJnPGVbCD7CVVYeDSJpCTUwSAThOYLySRMjMYNfKFJsLCJmVQMnJKIrFBAaRGTvXGXbZZ AgICAgICAgICAgICAgICAgICAgICAgICAgICAgICAg SVYwZVLuQNTbJUAwMGCtKJQtZSZpKHFaXW9KURFqRURgYSYzBMVeUEFlWJVwIWAcXKMyWSIvMDEaHDVf ICAgICAgICAgICAgICAgICAgICAgICAgICAgICAgICAgICAgICAgICAgICAgICAgICAgICAgICAgICAg DDDqDBFxCO8YXLWeCFYqEJCcOPHnLCNlGTQgVGJxIW AgICAgICAgICAgICAgICAgICAgICAgICAgICAgICAgICAgICAgICAgICAgICAgICAgICAgICAgICAgIC GhHISxKOOuYHMyDXXbKPXsTL6QDXHpGFPbBNLdEAMxMVThWWTlLZCfXGIoXMVuPRRkKIZgMRCzCAJbAR AgICAgICAgICAgICAgICAgICAgICAgICAgICAgICAg PDZkLETbBTEcRFDzKLQxLGRuGEUzUUIqANAzEL4NNH71rWRbw0F9LYTkJV2uykq/Cy1ZTXjdenAcqHIl VA7XWhVdUT4jym0CJcRjIA5cjy7ZCYiAYnCpM0W8hKXqZNXcZEXDFtNqC42qCOzvPq09CZmrANQbMtSu BDa2Eg2IPkDwR8rkYELnVdF7RNUgReUaAZtmXL9Re1 VudCAxDQo+Pb9ROC7dd8TeYLlfZvMvPH7nqx3GASbEPsJmL3TwjkI3TTI3EZRnUy7KYJHrSSFgoWFlLU DyNAZEDeRdE9AnkX87XZYVYs7+CWkdsiCnPuoLOeD3SCBth5WtLMw7LY1FYLRpJPv1ePRvGYSrR5Sen9 LdVy58NXRrFfgrL7kpuPloiVARoLMlwQQ2rXFsZRHQ WWrcJIhakr0PYSOVBShlCOAgPg9gIy3qUWRgVMPzZyDiURJSEF5GWUXdGXAbeSZhAUOsUTRUMX3QWQcz PUT3YlqpoaEjqYJiLDlgUA6AOPOwbnJlGCxmAMDBUWv+Iu3EGE8wl1MzCLyqYHVlZA5ecr6RWAhVYhPx N5J2gBLsZ8H6MKzkOp1FFPWsXKAoFPKuEGYCICblJP 6QCK0mobG9PY9FnYToQFMsIQSntITtRYi4C22kvXDmCBaeWY8WNUX+Rosanne+Qp9JLMBoXXRvRLVwXcEfRG CTFfMfO4GnY2LVw6YeK9YmHA36sQgqbsLwXCuaWW1ZKF9sDJCtVFRWMR3AdDMqxW0virZnMjYjTYDREw YrF69xgPHaCAMrVKR8KEQlVo6LBLLnM8KjbsMjbPtu xlOsIAFsQKWBAE6JUXixtrFdkITqjNmaLC39nXpbAO8UBv0WIzPrZP5ohk9YaDMuAd6GIJVbHL0FLVMs FQSeSZBhIHD9JAMlImLiJDrgCGAmULXhGKF9MBJbTBGbSY4CXtCmDKMfSPL2XMMrAUItMAJvrs8OCQKn UXBbVuZ7VPGsSPRpMKUdHRsrWYMpCNGmXGZ0FGUgZR MvBN6WWvZdIMSpXFSaMWDqPNJtFYFcqu8DQMRgEDFvYDU6KyQvWFGkVCCwOHrtIRByTYAjGXM3GCPlSZ SjLZ4VEcMcKRGmALX1BWJiENGlCMOsme4IFXMpYHHcMolsCBUrVCTaZSVmIAcyFQDaJRIrPWA3OMXtFM LlIH8RQySsRJHbALHbQNXgKCDjHIXjtl1WROYsKYXu JJAnQPQgHFWkZZEaSGljCRQyBKS4KUy3OIBrLCOrRA9NGoPxHZGhOLAaNPzuZJGcETJuhi8VPALpMUKi PHU7TvEcJBYwBIXmTCkuJRCfLMR0UBY1NCWrAGNfGD4BDzPeDJBgJHg1LOQbEOEqXOKkob4YMTNmDMWw IcMzGbXpBUYdLSRbXBkxRMKrJHI6Urj4RTSlYLNhFV 0QUsEtBNmpLUSJEje0RGgfS7v5PFKlYH6AL5Dvc9PrJYzlVOICVUdtFE5sslMjNWFqNh4BI2lPFpaqBO EkGMYiKIK2MAtlBAbgPqZcLIQ7XFH3WQkmYEXfQR0dKRW8BKPhTAWaKDz8YHW9EOJcOPUsIea2ZQAcWY I5OlRrYpJcOM9OPr7PRmO1BCD5wXXdTu2TEabyWk2QXCGTI1NFMn== ID Date Data Source [id number] 09/02/2020 11:18:00 PM EST [facility] Name Value Range Interpretation Code Description Data Sanjuana rce(s) Supporting Document(s) Vancomycin Trough 18.5 ug/ml 10.0-20.0 Normal (applies to non- numeric results) [facility] In cases of complicated infection, such as bacteremia, osteomyelitis,meningitis, endocarditis, and hospital-acquired pneumonia caused by S.aureus, trough concentrations of 15-20 ug/mL are recommended to improvepenetration, increase the probability of obtaining optimal target serumconcentrations and improve clinical outcomes.The above 1 analytes were performed [address] [facility] [id number], ,[place] [address] ID Date Data Source [id number] 09/02/2020 08:35:54 PM EST [facility] Name Value Range Interpretation Code Description Data Sanjuana rce(s) Supporting Document(s) Nursing Note [facility] DALGGb2pZwDGNdTv13/ENDiaDGAnd9LkHYgwYAt8LWszRWBnV3NpRLF2fQ4tUTJ6NVpESeEjBqOiXxP2 m [file] powell+U6+/9N+/J/2y3+s5s7vrkodV9qx7lv98bgxRl6c/OqPpvcvmDc7WEEzDzBlgd3PhoxnmfKpk6agQi ZTubqvWJ/qxHUiRioIbzP11y+YBfw5D8B1F/jujw0q Ly93rCjb1gpdgPhOzciv839xlk2YdOw38z5p1xMyJJ3l3RT8yP6FlmqlrRo+FE0/3bzr6q56nBED35HC /zlNDnbYG1v4VYxEHpi7HcZfgX7AzBgvCmwoCSFi+0mtqJhVidnDsCThWzg9lm5ZkDZfd1ZGln7XvngK Nuo+x1ESaDEyFs4c3DFAcYu8Z1Nnuv2Sl8T3/SxqrX 2NeNgL/C3UL2TBtXDgT1V63lw2g3v2esf08V4meRKbw8Xj8tP3msvd+N1HoE3tbJ71liAL+O2Q9i07zL o2viOAdjkf8kq9R0mMd6yBI616IdzFp48IIHMyAV4828b/rspJdbh3EclI7d3qYtL70qJYh373Nwv87A i/IOaGlsLkYPCW2ZTkCl5X+DGMk1/BD2g6/C+DGtjb Zyv8zkQBJhny7sa0mHg4rWejd/nJeAL0RMzFH6flysSd8Zf+oT2VDesJp2wgFiJJJD2lf//O5wrMr+Moisés [file] AvRjAgOCAwIFINCiAgICAvRjEgMTEgMCBSDQogICAg X5BjCIN7DUQlXz7VFEJfNP4KOyEbKCPzLXC+Ze3ITOQcUS1xcjTzvGS8ZIY+Hg5JWUUgBWf7J1R0IWFs UGq5G0VGG6DYUUGrFXihKAtnBAIkIId7S1O3ZVQmL3TBW9Xezkbhvx2+SP9UG71MQQSzORj5J9X9nMTs V8L9uXeMyWA3TU1BQZ6RcSm9mGXbiM8+WT9MT5LEGl ApGZt1G0D7iTZvT7M7eVyHlAI1RR8YEK5GiEAaCOZwrjKkBg3qO8IFEIaUPeTUOKP6XL5DxHKqXE0QgQ PYR4CpzRTkLw5iAXquxJUaaX3hUr6hIRlrPY0VFsYPSQoRJDA2HM5JwKPjSP8RyCRHV2YuhGPvNd0nBG lnaHRlbj4+NG5BUXSmDi4PSi8+DQplbmRvYmoNCjIx QRCck7HvOYu1LI7JUP6vqFrwJRS1Uy6FuOW2pTDbR7aYGP1HtKBaO59fvHDgGWBuNt4KWcL6vaDvpZ7Y BP75pSOnn0T2GOSoP3cjDRjos01gQScnECiHCW9bSWAPLXxnGEczRYD3RdEpfttiOZIkDx4YNrMwKRk3 eE7otFW2UHX4KvhsrWEvFUrxAdXnXwNrSnQ0fYirqf s7MRzoSM0dUNzpyckzAYIuEcl+LJxwLXSlNIOrUdpDEDYepN7wwnT8vmJvSFkouWFbFg8zb3e9TjeeBe 3hHc1vHRa3DkWfBxRiFTLtRe5nhT30IJshdiJnZr9IVaUnRIU0N7JdWcbGQFP+JEiqQZndcLr4iATdQQ ItHg6QSCDvNVNnNVFfMSNqHIFvWKQkLFNyGSTfVDGv ICAgICAgICAgICAgICAgICAgICAgICAgICAgICAgICAgICAgICAgICAgICAgICAgICAgICAgICAgICAg VTGqDHNgRUObLJLlHZ1CKIQxZIYeKVOmWZMsZUNxTRJbNMFsQCYvUXExTADrCRGhABOmVWUrUPEpMYQz ICAgICAgICAgICAgICAgICAgICAgICAgICAgICAgIC SfKPYxWOZoYDGmGYHkGWJtYMJlAJSiYN9CGBYrRINqPKLzYGChXYVmJFIoESQuLJPuZHMqWPZtHKSnPY AgICAgICAgICAgICAgICAgICAgICAgICAgICAgICAgICAgICAgICAgICAgICAgICAgICAgICAgICAgIC XeLQXeRU8BIYIiIZIwKGXlKHShJFLtEFTrCTCcDCJj ICAgICAgICAgICAgICAgICAgICAgICAgICAgICAgICAgICAgICAgICAgICAgICAgICAgICAgICAgICAg MJCyYTUlLOIfIIKxMGSgYX4TVBJsESWsWYRqRJBpQGAwEEJxSNNuCCUtAPSfLSWvZLBiERGbECJgMHQk ICAgICAgICAgICAgICAgICAgICAgICAgICAgICAgIC ZmIRLgEZJsOFHuVMMmQXKoPOWnIUKvJLYhRK6XRKHgDLIcNKEeUAXqPPXgRLWoINGiQFSyHNAsFRNqXO AgICAgICAgICAgICAgICAgICAgICAgICAgICAgICAgICAgICAgICAgICAgICAgICAgICAgICAgICAgIC XfTVIuSOPmIJ6XNGLlZEWwMKBtSZTiFZYrQDOmRQBv ICAgICAgICAgICAgICAgICAgICAgICAgICAgICAgICAgICAgICAgICAgICAgICAgICAgICAgICAgICAg IDQdTBPjUKGyEADbTCJkUFIqDX0FLUVgAIEhODYsDZTcFXQjBAQmFJCtDKDqZIZcTHSpZQJzMCWxFZZa ICAgICAgICAgICAgICAgICAgICAgICAgICAgICAgIC EmAWUvTCXzHQVfKHRjZUTsDKZlNLYvRLWeNXZsSV9SDFQkYXUtFXXiCFGfKRMjGSLhOIHdCGYxMYFsPD AgICAgICAgICAgICAgICAgICAgICAgICAgICAgICAgICAgICAgICAgICAgICAgICAgICAgICAgICAgIC PgBLUeZRRpZKDnXO4RJISpVUWdSLAgLFMhVUJrBZHj ICAgICAgICAgICAgICAgICAgICAgICAgICAgICAgICAgICAgICAgICAgICAgICAgICAgICAgICAgICAg RSUdIDTjKYIbZHSlHPPaMRDtIZSjDF5GXN04tEBfk4H2JJFeAR6hvfi/Zr9LFJvlrmOusBOoJA8XWcSb DK0qpn4OKsFmNA6zzx1VTZdDDlJxB0H3aVWgMRPiIG SGSfBmX65qRAtsQa13SLcvOUPsAcOoVHd9Le6ULzIhZ2ynTESbJgB3VAIvFpIdXAdvCM5Sn8GskQDjJS o+Ih8FNC4pm7UuEIbjNyHdAO0wup6BKWgTZeYuD9BlwjF0EMYbVJLgWz9SBBFwWROhhXOzGbMgBFZBFp SsT0CisR10AKELGj0+BKwhagDrTfiJUgDqHESza5Gk LVd1BF1MFUObOVh5aSChEqZce8giWnQPv5FuCRB2YWthkYe1USAhT4luoabwAp9fFMYmTh2rVn8aKXGl EIL4DyEfLWPFNU3LDRDpQIFbdBTcCSJrOYGYXL6FKPkaKBZ6QmbhjmMmiLJeUMqdTF8EZTSzblEzKpSd MCBSDQo+Oz7FQL7ee9NqPRaaTSBmTT5ajg8HRTcGYj CaT1K4pYKhT1T8AIbpJq8COXOuUOJhFgQqEVYJCZilGG1ZSS3cugU3DL1MhYQpDIIxAVWldCJiZUw0R1 7ksDFmIBwtWM5LSPR+Rosanne+Xf6LYECmHGLqKBOzRzDyGAAYRbSaI3ZjF5BMk7TyE5IuMY93oFayngZtRP ffNO4UGN9mLEIhQMQJLR1NqAMelM3ntkUgQtDbOOMD ZrAdE46smLRtLKDfJCExDDGaLa7NKJIrE4KinyRkiSrztgVcHWZvROAEQS2YXFzknpJsuQCssIgmGM79 uWjhRR2AFf9UOnPvUD0rce5ZlERuLz9GSBYuDP5NKWQjJWZlGYDgLIS7OCItRqLzFLxfCWWwQYOgVXL5 TTJcOJWuBY7EWlUwBJWiLGz1ABAgKDSaJBJqrm9AUO VbDQEqSRPzUoQiNPSqGLLhUTgsYWDrKFHpTOZ5ESRsUXHmQG2VQlSdOXQmMMFqUqMhJBJzWSQvdv9MTQ NsZMScTDPgPIHzAHUnOQPtRAfxGPSoVHOoBdl1RQWbRIBzUN6FSdUtMWNeXHV1UXxzJKItNMMrly6BUY VhNOWqEtj2XrOnCSZwUIIqGJujSVFtPURoOpUgABTa KXRtBM9YWqCvQHZeYBQ2SpbcKFCpXKDfpu2KQWGfZKFmCIBhQOGfYODuLKWtORumFHYgUGE8ZXMuCQNt KHRmZY0MGfKpUPPmKPP5BhFpHGKqHNDmmj0JLYIoFPUdIpa5TILeIDXcJHYiKGhxJKVrRFO2OtO8DGAb THIiUI9PFcOuHUJtJPvfWyAwSTUcFBXorv4EWNMuHU UxPCJxGtElSWVyEXCqCPpkFOQiKIB0HRs5NRTmTKUdXT1KKfLeMBFxYPt8YbQsCRQnUQQvha9MKTEjSD AnWLU6YlMvVXUjPYLmNIlbDLZbQPZsCBB4AJCfWZCpSB1CZtSnIPMlAsI8YPEeYNSwRZOdla7QGOIkSO ClJKo9BAAbGTUvUZQgOSe7fxRzrOKmLQe0CC1QL6Du kxRfPsWWEw2Fx427YWY3AKLnTv8WD7ykCb3mNSYdHHBBMj1FREn2XmZkZxZ5RdPiDms9OyI2OtNpRXz3 Ufp1FWO3GhRyDBN+LDh0XZEsSECuSwKeKHVlPDdwKzPcTBblGhhkSvuiGzAeTo3oSLEXBu7+DQpzdGFy yToaYDCKGuVqLEw7JUitYSTGAe5H ID Date Data Source [id number] 09/02/2020 07:19:00 PM [facility] Name Value Range Interpretation Code Description Data Sanjuana rce(s) Supporting Document(s) Glucose, Fingerstick 367 mg/dl 70-110 Above high normal [facility] The above 1 analytes were performed by Suman Cifuentes [facility] [id number] [place] [address], ,[place] [id number] ID Date Data Source [id number] 09/02/2020 04:26:00 PM [facility] Name Value Range Interpretation Code Description Data Sanjuana rce(s) Supporting Document(s) Glucose, Fingerstick 297 mg/dl 70-110 Above high normal [facility] The above 1 analytes were performed [facility] [id number] [place] [address], ,[place] [address] ID Date Data Source [id number] 09/02/2020 02:20:21 PM [facility] Name Value Range Interpretation Code Description Data Sanjuana rce(s) Supporting Document(s) Progress Notes [facility] OMIFDq9tEzUJIeZn95/ANRefHBWgg9PiWBdaUPf1PZfsRCIyJ4PlBFQ9kU6gOKC9KRpIQnTaKkIkBvX7 lbm [file] XAP7QnV7Ydh0J4N9VVGaVTM+DA4jWYo+Gr0Ab2ShcjY7tqTvEVefDgXsKn6YYAYHF0JSWo== ID Date Data Source [id number] 09/02/2020 02:01:13 PM EST [facility] Name Value Range Interpretation Code Description Data Sanjuana rce(s) Supporting Document(s) Care Plan [facility] WQYWCi9aSvHQAgBl56/PVEikBIYiu4IeCOndANq2CDeiKKMtW1XcUBD0jH2rTEJ2AUxJTaVmTxRqLyZ1 lbm [file] UV6OTy4AGrZ6HCM6sBOoCj4GRfE0AZVPHoHkTU1XIIb= ID Date Data Source [id number] 09/02/2020 01:49:18 PM EST [facility] Name Value Range Interpretation Code Description Data Sanjuana rce(s) Supporting Document(s) Care Plan [facility] MDVJUr1lXsFMNsEy66/YSJusUWYqm0KkTQenGGm6QZclGVRlD0YyKIZ4zW7iPEP3ELwCIaUcItVgYiF3 lbm [file] NiLHUkEup7DvG7TSq9IzX+YM1tELv+Hr2Vw0SoybW0rbDqDEewIbPxCO4TRUDMK6CDKy== ID Date Data Source [id number] 09/02/2020 01:42:15 PM EST [facility] Name Value Range Interpretation Code Description Data Sanjuana rce(s) Supporting Document(s) Nursing Note [facility] AMVIIt1vPpTGFyEl56/YZKmaIHBvb2YkUAywRXb0JPxgWVXaM6ZoPEV6lD3tZLF0AClPIdIuFlBxMqP3 lbm [file] 9GDQo= ID Date Data Source [id number] 09/02/2020 01:24:00 [place] [address] RESPIRATORY CARE REPORT ==== ---------NAME------- NUMBER SEX AGE ADMIT DISC. XRAY# F/C CARLTON Ross [id number] M 65 08/31/20 09/01/20 [id number] M4 I/P DATE OF : 1955 M/R# [id number] PH#: [phone] RM [id number] LOCATION: EMERGENCY DEPT EKG [id number] COMPL ETE:09/02/20 06:43 [place] [id number] PHYSICIAN: VANESA Name Value Range Interpretation Code Description Data Sanjuana rce(s) Supporting Document(s) ID Date Data Source [id number] 09/02/2020 12:34:06 PM EST [facility] Name Value Range Interpretation Code Description Data Sanjuana rce(s) Supporting Document(s) Progress Notes [facility] OYTVDn7wKdAUMxIf25/YIMyvMOOfo0NnMArpZJj7DMqsXEBnJ9VnQYJ0vJ8wRNT2XKoYOiUmBeGjEnF8 m [file] AgICAgICAgICAgICAgICAgICAgICAgICAgICAgICAgICAgICAgICAgICAgICAgICAgICAgICAgICAgIC AgICAgICANCiAgICAgICAgICAgICAgICAgICAgICAg ICAgICAgICAgICAgICAgICAgICAgICAgICAgICAgICAgICAgICAgICAgICAgICAgICAgICAgICAgICAg ICAgICAgICAgICAgICAgICANCiAgICAgICAgICAgICAgICAgICAgICAgICAgICAgICAgICAgICAgICAg ICAgICAgICAgICAgICAgICAgICAgICAgICAgICAgIC AgICAgICAgICAgICAgICAgICAgICAgICAgICANCiAgICAgICAgICAgICAgICAgICAgICAgICAgICAgIC AgICAgICAgICAgICAgICAgICAgICAgICAgICAgICAgICAgICAgICAgICAgICAgICAgICAgICAgICAgIC AgICAgICAgICANCiAgICAgICAgICAgICAgICAgICAg ICAgICAgICAgICAgICAgICAgICAgICAgICAgICAgICAgICAgICAgICAgICAgICAgICAgICAgICAgICAg ICAgICAgICAgICAgICAgICAgICANCiAgICAgICAgICAgICAgICAgICAgICAgICAgICAgICAgICAgICAg ICAgICAgICAgICAgICAgICAgICAgICAgICAgICAgIC AgICAgICAgICAgICAgICAgICAgICAgICAgICAgICANCiAgICAgICAgICAgICAgICAgICAgICAgICAgIC AgICAgICAgICAgICAgICAgICAgICAgICAgICAgICAgICAgICAgICAgICAgICAgICAgICAgICAgICAgIC AgICAgICAgICAgICANCiAgICAgICAgICAgICAgICAg ICAgICAgICAgICAgICAgICAgICAgICAgICAgICAgICAgICAgICAgICAgICAgICAgICAgICAgICAgICAg ICAgICAgICAgICAgICAgICAgICAgICANCiAgICAgICAgICAgICAgICAgICAgICAgICAgICAgICAgICAg ICAgICAgICAgICAgICAgICAgICAgICAgICAgICAgIC AgICAgICAgICAgICAgICAgICAgICAgICAgICAgICAgICANCiAgICAgICAgICAgICAgICAgICAgICAgIC AgICAgICAgICAgICAgICAgICAgICAgICAgICAgICAgICAgICAgICAgICAgICAgICAgICAgICAgICAgIC AgICAgICAgICAgICAgICANCjw/uFJyJ4ymsJFipbD9 B2ziEw6DYl5MTG5ew8BvXZHfVExjgvRwLndISmInNSAySbfKPvi9ZSguEJ6RpROeV2VlF3OhWMrlBL2D GADnUQIlzZPfAAUkLMRwZbO4RLUhWEabFD7TbKIkPOooAYZxBLCpSnQvCWMtCVZzXIKaVVUhZMYSLD4V UuAcE0LxgF39KWUNBh6+DQplbmRvYmoNCjQwIDAgb2 FcVPu3PF1ACGKgBtegl4YlQNJhKBCSVZbyTD7ERZW2TWZoREQrRr7RVSUnZ118seMgYC0BPb9MUxPfGY 1hjf2RDFLfGWAwAruNWca0EBmhZN1HzCFaTEmNal3jhwAnddMBn7AmvySgvTVAUBzxvvfoQoWSVG7yw9 ViwhH1JLkrDGQuOSLlVx7wIq2hQVEoSBVpNnZbWQLL BY2BTBPoPSDjcRNgDVRgOCNAFV1YPPjuHHG4HcsglhOemKZjYJeaLR0JRTBmrgZvDVUzCXIWBTa+Pg0K FZ8bz4OpXLz8FbHdAC9eun7SBTgKJbIkQ3S2iTKjD5P0GIlqPl6THVCmWWZhHdqqDMWJVJweYW2DIH8p yoJ6VV2SmDJaNCUvUXGhcIZyADr0Y65keNYtSHcfWF 0KICA+Rosanne+Dq9YPSXoGIQnNXCmSdNnHQCKNsCeU4FhC5RZm7XpW0RvOE30aHtdzaIyVQzbMR6HMS5jHJ MfNMSMHA4DjSNwbD2hewS9NPVlUVUJNuYzT41pePPyQMScLQB8PVThOb7BXZOiX9DrskTdzQuucgQwYH YnDYETFT8UQFhvvxDzqSFamSxjGN34eCjlQH6PVp9L LsCxCD9crb8MvEQzXi7EOFP8Iu6UEZZqBZOgMSAvSWD6IHZwDjBrKOepSIMhOSQuKTG7PIBcXTGwLE5R EfClZUFkDkBzOLYbBMQrLZFiln6AFSNkMMNdFdQ7WMLzUMBxCWNlQXfdRFYvYYSxPXJ0GRVgXXLbQR8X YgOpOTXvVBIyEsXaKSNyTXZqsw1CUSYyTSMwOvXmRF WhPVXwZAXtAYfyRYPaMTW1UtFhMSIpPLWhTN3WNuYeVYKzEMO7IGHmYINqTHTbtg3RHJFqBFVjMpt3HN CeIZDvGKVuPNykUXBrFWS5VLc5JHDiTCQoNN0JVzJnVKHzFLn2FmynDWPsYTArnl5KYADtTFJwOSimTg JrBRToBLGcNRjfIMMfFGD2PupcNYShZSCvEY8KBwIv RHVfUJe9UNGkDCMuCRSzxf4XSXStTQUdDJT1MhJxIDNuKIUxGHcdFUWpYBXmPBVzCUVzLNToLD6FQdDj XGTyKXWhExqpFWXcWTLxfw6UHGSwRWKcICAwQaMfVUBaGFQlWFznMEMyYWNoYzrxTPZvKSNkZE6HFiNo FZCfPcPoUJmtKGEeQDWimz8BZTPhRVPiGIC7CkNrVI UcJXNwDKxyDNAvPFI0BCD1LFFdVXVkKD9SBfIsGZNmMnW0XKErNTChHVHfhp4WXNDjPJMqEFZnGVMtKB ZwUWKjNOunTEFcTYB2OFS9LPPkHCPeAJ2FEsRsJEAiTjQ0PCQuSIEqTQOehn5SMPRdLKAxQghiAvQyIK KqAXJvANhqZVQzOBK3ITRzHQZiHAFyRX6XJcGfWIPw RhuvSDDmLHUlASTdmc0ZUHZiUGYaKKHsAzOpVFZmOLMlXXsgJFQqUBT9TFZpGSJjVBExRW8YTjXsHJAw Mog0KTKkXYDaEGGrel0YMEOjTVJtSZJaEyKhSRZnHUFgIZviNWRvBLL5PqB9ZCLiSKSfCW4MNsUdFYQy Caq7QqVjVZTgPRDpko3CLZKmOBCcUKc9JlMdFAYtFP TwLFitPPYwLTLiYBD5TQSyADBpHE5XFlJgLMFtKqMoWhYiPAMmTHHhjm1JTNMxBXNjOWrxHALoGRHmFH RxGQllUQMaTOGaYMxfKETkJZNeYA5JJwThHLXwVeNzXCNgIASiZATrmp3OAJQePBXiGgM9QPXoDAAeMS EoASh3nfAxjBLnIHz6EU1CB7MpoqMkJCEGPr3Lx190 BXZqOUGeHl0SY6wbLu6hKLQuVTXYAh2OZXs1OQroIfB2QIK3NKBwMMTrEJu4Kcr7S7DnB8HrBHWtFqQ+ IUhfACZcBOCmUes4TjGaWUP3Avh5UPK3NJN9EqI7WVQqPO7kDMQPCk2+DQpzdGFydHhyZWYNCjMzNjQy KKquPMMSBj0A ID Date Data Source [id number] 09/02/2020 12:06:00 PM EST [facility] Name Value Range Interpretation Code Description Data Sanjuana rce(s) Supporting Document(s) Glucose, Fingerstick 246 mg/dl 70-110 Above high normal [facility] The above 1 analytes were performed by [id number]#: [id number],[place] [address] ID Date Data Source [id number] 09/02/2020 10:17:22 AM EST [facility] Name Value Range Interpretation Code Description Data Sanjuana rce(s) Supporting Document(s) Progress Notes [facility] SOOVCl0uCgFRSiWt77/SWIobTTHui8UmEBrzKUl9OSarWKXrD0ChNYG5dU9aFZN3RXlESwZsOpYrGhO0 lbm VvUujEEcFpQTAzIhsOVhEjKXqsZcgwySTuKQ6HeXC2VSXlZ71eHGNxDNNeG1QxXHYuVfW+Se1RJPVdrB NiQF3URdmN7UbVp3l6FC9P9L/EGln8NOdWHTDgr0qvHhRrLSf23fXxZezhgjwp2E8344eHVDZuMmtdLN q7j1R4iWj3k5EaLYZit4l1vVNPPU19i4hVIanNvs1R nWyh81F1QmICKuy5sQJPj54H9vi8PPD0CF9nA+JCIjllfpM7R9SfeM4BtboPD0Hfz7j02lKSNkG0CchZ 04C9fImJad+LJH0csiQA8AsE4eD61Wzn+ibZvelwaiblAdhOvOaUhHB2jJGX5fEfLZOSUWm1TMSI6M2z 5zeJeqvZhk3GCg6+LGT5dJNmOeDdIOpKIw3hgGNN1S aPxKuBQItLpD8GaqETHDAiDJk5C2l/YL3inJyFgpvRMTGDZKuJDTVYa1yTLkZJabPpYDLk1EBM6Y8Md4 0eykLXlcqNF90OMr0NN21zY9TFSoMbkG2yvYGg/FZUibpGi2ngqkKwxUzK7sDHlQ0cjifC9R+pVmNxVK +k9IF4PM2M70xYtt9cS1398RkE5nqvuNxdu6r63E1u [file] AgICAgICAgICAgICAgICAgICAgICAgICAgICAgICAgICAgICAgICAgICAgICAgICAgICAgICAgICAgIC AgICAgICAgICAgICAgICAgICAgICAgICAgICAgICANCiAgICAgICAgICAgICAgICAgICAgICAgICAgIC AgICAgICAgICAgICAgICAgICAgICAgICAgICAgICAg ICAgICAgICAgICAgICAgICAgICAgICAgICAgICAgICAgICAgICAgICANCiAgICAgICAgICAgICAgICAg ICAgICAgICAgICAgICAgICAgICAgICAgICAgICAgICAgICAgICAgICAgICAgICAgICAgICAgICAgICAg ICAgICAgICAgICAgICAgICAgICAgICANCiAgICAgIC AgICAgICAgICAgICAgICAgICAgICAgICAgICAgICAgICAgICAgICAgICAgICAgICAgICAgICAgICAgIC AgICAgICAgICAgICAgICAgICAgICAgICAgICAgICAgICANCiAgICAgICAgICAgICAgICAgICAgICAgIC AgICAgICAgICAgICAgICAgICAgICAgICAgICAgICAg ICAgICAgICAgICAgICAgICAgICAgICAgICAgICAgICAgICAgICAgICAgICANCiAgICAgICAgICAgICAg ICAgICAgICAgICAgICAgICAgICAgICAgICAgICAgICAgICAgICAgICAgICAgICAgICAgICAgICAgICAg ICAgICAgICAgICAgICAgICAgICAgICAgICANCiAgIC AgICAgICAgICAgICAgICAgICAgICAgICAgICAgICAgICAgICAgICAgICAgICAgICAgICAgICAgICAgIC AgICAgICAgICAgICAgICAgICAgICAgICAgICAgICAgICAgICANCiAgICAgICAgICAgICAgICAgICAgIC AgICAgICAgICAgICAgICAgICAgICAgICAgICAgICAg ICAgICAgICAgICAgICAgICAgICAgICAgICAgICAgICAgICAgICAgICAgICAgICANCiAgICAgICAgICAg ICAgICAgICAgICAgICAgICAgICAgICAgICAgICAgICAgICAgICAgICAgICAgICAgICAgICAgICAgICAg ICAgICAgICAgICAgICAgICAgICAgICAgICAgICANCi AgICAgICAgICAgICAgICAgICAgICAgICAgICAgICAgICAgICAgICAgICAgICAgICAgICAgICAgICAgIC AgICAgICAgICAgICAgICAgICAgICAgICAgICAgICAgICAgICAgICANCjw/fFGmM1gxzAXcopB5S3zzDd 8XOj2OOH8sv9FvZMMwBMwvmqGpIgbBSgWvVOBhYfnE Vyy6YAagWW7KmSAeP0FdY0UaREyvWH4SMFGeIBGifDLlPHPsQUTiXuR0SENgUHbnFR6MbBJnDFbyGWOw PBDxGG1CMHFpH724dvLzQP7LHf0UGfHcQK2bhw4RRVioKSKvNkfGGpn3IOvxBB3PrWPmcGLkNBYgAQXF RjWnC8kzm6EjGGalOCZSGKuyAR2Vh0PihHGfVFz+Pg 9KAX8yr4VyGEkcCWTpZK5lhf4CEOnZTaVzU3WudSkqAPPoq4lgOQFrIX9gyYBuHEU8BS7hdcGwBxPhNG DhkW3oZCAKYEavCLPhYy0cCm4pYBKyIMXcGhJ9ZMCTYQ9OYFSsJGGxcJBsUSMgRUFQAQ9XVNqrDKV4Vz qkjzKqlMDtODueJX0DKPErnrIvXSlrIDAQBCw+Pg0K AF2ps0MvKJjnKXBwAC4wxf8HTArBTmHzW5V2hULxH1Y0LBxxNf6YANZkCDFzUBWtCGCDJXrsDA5MOE8u eiK0IZ0OsYZcXJBfXCPsqYLsVMb5A24vwNOiQBdnFG1SZAA+Rosanne+Cr6LPOEkYFEhCNFsJaNkLFGBZgFi T7LdG9UHj8BvM0ZhXY37yUbajjGwGIzcSO1ZNI6zFZ KuIUJOUO2FkSXguS7dgkOuCfWbYWPOBxNxV33wbFUvJKBbHKF4FIXgGb1AGSGvK2UqbzFpqZvpbpMnVS JiXUEGUH2NGXxzjbSwkTImzVepPX78nRbvUK2QHg8FZiOdCU6vov7NnTIhAl3CGVMqUS1MWNMmRQNuNY BeLZU3KBWbHmQwYLanSUSqQFTrNIB9KWIkGUXcAM5T RwRhGEDaGBO2VkFkUZWsXXZsgg1IARUxKOLtMpY5NTBaAPVsXUEnMGgeOPXhPNFhZFM8QEYeXZFiUM8J KaQoTTEeSYWxRnWcATHzXROfpv1EJUPbEKUuKNZ9DqWzMPGxEUZrZFzgENXsJPWoTAJ9UJEcRTYiNQ3E XfVkCWAqJDW9AmEcMCApXZEdyp1REAYeNWDuJzukIT BxQBBzNXInKGmnNFViCEUsMqc1VYYyAIEiMN9PQkFhXJZrZTR4CqErAOWnSREfij4EJZBuNXZxCLL4JI QwAQIcVKCqVJwgMTTiPXA2MXF9QLYfOZVvRE6WWvFbFQBzLSPdEYpyMHSsZVXzlj3JYOIiSXUsOMRaOh YhZAQxZNBdJTkvWDWgKOV0NPH9IXBbHZWlFG5DOfAu THIeZYgyPqDqIDMzNVHyph2KRILkZUAdBcSgItNeLMPtJJLfOVveYSDiIAY8SJijYZObHKJvOZ3BQiPj QRtiVYQFVic8MOvgD2n5ZXOqZC9MV8Qbb1AiQEbsJFICLGveEY5fszGfOEDxGz0NN9lPRku9HTc3KmFs XBMyMpX2NfF5Ghq4SOZfRWTtHcA0DJUuCQ0fMXueYJ r2GGCzRNUaFrzhUODjAHd7EGC1XPWfCEhfHRP1HfEiVD6RYa1NXpI2SWJ6jKJbWw6SUftxJd1RHWWRB4 YNCg== ID Date Data Source [id number] 09/02/2020 10:02:47 AM EST [facility] Name Value Range Interpretation Code Description Data Sanjuana rce(s) Supporting Document(s) Progress Notes [facility] KWTXTk3iAsHTTrUj21/RYZwjVNAyj7YcKThjGLo9IEwiJXQcK8TwORD0dD4wDFE4HHmXSbSiFlNaGiQ5 lbm BuPppFKlFgPDZxXpcBNzVhMJdqSfbruMRjUD6HpZD5VXRhP34oZLSiIQIuN4RzGGOtRLI+Ln6THRVjwE JvRW9PTslI5YlYBfskOX9E2t/uDhID0J9a32fEymD0Ni1ZgVpteSDHVqq6NCY35zEHIrqzoD2YTlpTG0 E80psm4qz8Ikmyp51CNrhjp1t40i3vEfFkZWe9fsZN Tni0pV2kf9JE7XNnc0G+Inocencio+rjrXxTyLs6zLNLKfSL27L7AXAslUp6pNDdL4Oa5mOIY5kmzXRL29FWnY [file] DQogICAgICAgICAgICAgICAgICAgICAgICAgICAgIC AgICAgICAgICAgICAgICAgICAgICAgICAgICAgICAgICAgICAgICAgICAgICAgICAgICAgICAgICAgIC AgICAgICAgICAgDQogICAgICAgICAgICAgICAgICAgICAgICAgICAgICAgICAgICAgICAgICAgICAgIC AgICAgICAgICAgICAgICAgICAgICAgICAgICAgICAg ICAgICAgICAgICAgICAgICAgICAgDQogICAgICAgICAgICAgICAgICAgICAgICAgICAgICAgICAgICAg ICAgICAgICAgICAgICAgICAgICAgICAgICAgICAgICAgICAgICAgICAgICAgICAgICAgICAgICAgICAg ICAgDQogICAgICAgICAgICAgICAgICAgICAgICAgIC AgICAgICAgICAgICAgICAgICAgICAgICAgICAgICAgICAgICAgICAgICAgICAgICAgICAgICAgICAgIC AgICAgICAgICAgICAgDQogICAgICAgICAgICAgICAgICAgICAgICAgICAgICAgICAgICAgICAgICAgIC AgICAgICAgICAgICAgICAgICAgICAgICAgICAgICAg ICAgICAgICAgICAgICAgICAgICAgICAgDQogICAgICAgICAgICAgICAgICAgICAgICAgICAgICAgICAg ICAgICAgICAgICAgICAgICAgICAgICAgICAgICAgICAgICAgICAgICAgICAgICAgICAgICAgICAgICAg ICAgICAgDQogICAgICAgICAgICAgICAgICAgICAgIC AgICAgICAgICAgICAgICAgICAgICAgICAgICAgICAgICAgICAgICAgICAgICAgICAgICAgICAgICAgIC AgICAgICAgICAgICAgICAgDQogICAgICAgICAgICAgICAgICAgICAgICAgICAgICAgICAgICAgICAgIC AgICAgICAgICAgICAgICAgICAgICAgICAgICAgICAg ICAgICAgICAgICAgICAgICAgICAgICAgICAgDQogICAgICAgICAgICAgICAgICAgICAgICAgICAgICAg ICAgICAgICAgICAgICAgICAgICAgICAgICAgICAgICAgICAgICAgICAgICAgICAgICAgICAgICAgICAg ICAgICAgICAgDQogICAgICAgICAgICAgICAgICAgIC AgICAgICAgICAgICAgICAgICAgICAgICAgICAgICAgICAgICAgICAgICAgICAgICAgICAgICAgICAgIC EgJJIhELFsZTRdJJTrGGKdPAWfZOw3S9gpWRNnCIVfBV1kTWk4Hw2+HIhDRlAsBAN2kbTweU7QVA9ti7 RrBQoyEZFcm2RyBIq5RI3LJKPhMXulFD7GBCesnz4N FNHrMRWlhEFWy0zoHbXwGVS6LPVqPouaZU4AOABzL0dxyyUmDGFpDAXKTW9KNqHfR9SzeD25CYOJDy8+ HXcrbaIfDivLUkN5TWYqd8NkHXl8BI5QQSYePqpeu5JoGZliHHHYUJdcLA1BTWP4HAP9CXGiHt4LKVIx R390ccFzNS0NOn7HNlXxUF2nwa0NGFzsMFPwJfqGGj y1SWqiTI5DtSMmBOgLlp9mqeLsciRXl2YawdOufORSdYmkZPU4ikhyn5WeOPWPTPhjFERyDb9rCr1vUW MySLJtKdQeVWUUTN5FKEVyINFqeVCzFCKmEMYZMM7TDIdiVSJ9EcmbehIkwGBvLWxjUX9GTZWfayLfBY cgMCBSDQo+Nz2VJU7ul6KcKVroNNNmZO5yip2PWBcF JzGwS5K3nRZuJ9C0QLjjOd5RQCQuKNMwOLWcOQOBGYwdQK3LWT5hgfI9DX4RwJKeBTWdQYNjoWDgPFj1 I11kwXPqPSgjVO6YZHJ+Rosanne+Ri3MYBIyOFDoXSKkHaGpIOQPJnLeV1NqD5ARy0GvD5EjYM79nZjlpfLk YKncUL8SQO0lHEMfBWICJC9IqDUmeC3eatQqJnBrSZ XLEoGdQ14eeEEzXCOgOCL4WUFtTz6LYZVkG4RxmoPgxUgluuDuVSQtUFABCT1EEXnqhbLylJAatQhvCM 02fSheVU4UUs2KIzDfEI8fxh2NhVEqGq1QRXPqDV5HXEYuTPOqDRGaNFO1GPHhFsHrRYhtVOOqYBYtSB F2HKTjRWGnRI6HAkTyCIHdZKB1GMBbRXLtFMCymj3S DCHoWKEvFjM3TCLyNTOrLERaDKckOQZqWUWtVFC2XRDsYZUkOE0ENdHzSGZiBHJlQEXqZPOoNSHccv3T KJApZBSkRHT7ZiIgVZThADMeOJlqKIVcQBFzPDH6SMHuCMLnFH7QZcLuGHTwUAR4CBWxFLGsGXNunq8Y JACfKXVxCcciLCWoKQThTFYeDAtmJGPbJCAjEuX6RV GrNCRrTP8KXnQvZZDrACD4CAVbXCFdZCGlix1XDYUbLAVdWPRmHENfOZKmRIZoWGprREUjLGA1CCg0CC OqLEQxAY8YTqRlZKSjXLIuCAnqOFRbVSNcfm7PXKVcLPEbXVX2JcLeBQWiJYGsCLiyFEDdIJJ6UEV7HM DyPMIfXW8IQhPtWKZzBUpvHPVbGQRlFUYiwo2KIQBe DPWwUxAyJrUuLPIaZBTbZMbqYHPbBVM3RODjDWNpAYMrMH2CFgGsPNrpRBDNAhg5AIpvW6k0ZNXyUB3E R2Uau9LzNVdcDUAUTUuqJR9tswRpHEDvOr7FO4qMGcerWVb7Svf2Fdx4GLyfVqFrRsEwVAZ9MQA3RgQ0 SyTyWo2mICApIGbgXMMcTzq2YMYjKKJ3AQQ9QpCaGg x7PUrjCrIdDlUnKR5JGr4CAjW8XQM7rBWgQd5OIlsdVu6BVQXZP8JREs== ID Date Data Source [id number] 09/02/2020 09:57:10 AM EST [facility] Name Value Range Interpretation Code Description Data Sanjuana rce(s) Supporting Document(s) Progress Notes [facility] APFNXo6nWzBBCmYa99/PGVqoUUZsx2FtAFqwNQr5YJsfZPNlV3CgKXR9tS3mSJN4SBeIWoLqHrRxWhO8 lbm [file] GkppCWIvVXJfAMH2FPT3MNX+KH6pHSl+Be3Gb5OdmrQ6efXcXSggPqT8TM2LEFHHJ6VDEq== ID Date Data Source [id number] 09/02/2020 09:37:13 AM EST [facility] Name Value Range Interpretation Code Description Data Sanjuana rce(s) Supporting Document(s) Progress Notes [facility] LTYMDz9gGnKCBeXg06/WWYtfHHCgt5RzYZbkBTw2BVfnJACwE1KmKPC3cZ0eLUF6PJrLDoXzUiXzXeW7 lbm [file] CiAgICAgICAgICAgICAgICAgICAgICAgICAgICAgIC AgICAgICAgICAgICAgICAgICAgICAgICAgICAgICAgICAgICAgICAgICAgICAgICAgICAgICAgICAgIC AgICAgICAgICANCiAgICAgICAgICAgICAgICAgICAgICAgICAgICAgICAgICAgICAgICAgICAgICAgIC AgICAgICAgICAgICAgICAgICAgICAgICAgICAgICAg ICAgICAgICAgICAgICAgICAgICANCiAgICAgICAgICAgICAgICAgICAgICAgICAgICAgICAgICAgICAg ICAgICAgICAgICAgICAgICAgICAgICAgICAgICAgICAgICAgICAgICAgICAgICAgICAgICAgICAgICAg ICANCiAgICAgICAgICAgICAgICAgICAgICAgICAgIC AgICAgICAgICAgICAgICAgICAgICAgICAgICAgICAgICAgICAgICAgICAgICAgICAgICAgICAgICAgIC AgICAgICAgICAgICANCiAgICAgICAgICAgICAgICAgICAgICAgICAgICAgICAgICAgICAgICAgICAgIC AgICAgICAgICAgICAgICAgICAgICAgICAgICAgICAg ICAgICAgICAgICAgICAgICAgICAgICANCiAgICAgICAgICAgICAgICAgICAgICAgICAgICAgICAgICAg ICAgICAgICAgICAgICAgICAgICAgICAgICAgICAgICAgICAgICAgICAgICAgICAgICAgICAgICAgICAg ICAgICANCiAgICAgICAgICAgICAgICAgICAgICAgIC AgICAgICAgICAgICAgICAgICAgICAgICAgICAgICAgICAgICAgICAgICAgICAgICAgICAgICAgICAgIC AgICAgICAgICAgICAgICANCiAgICAgICAgICAgICAgICAgICAgICAgICAgICAgICAgICAgICAgICAgIC AgICAgICAgICAgICAgICAgICAgICAgICAgICAgICAg ICAgICAgICAgICAgICAgICAgICAgICAgICANCiAgICAgICAgICAgICAgICAgICAgICAgICAgICAgICAg ICAgICAgICAgICAgICAgICAgICAgICAgICAgICAgICAgICAgICAgICAgICAgICAgICAgICAgICAgICAg ICAgICAgICANCiAgICAgICAgICAgICAgICAgICAgIC AgICAgICAgICAgICAgICAgICAgICAgICAgICAgICAgICAgICAgICAgICAgICAgICAgICAgICAgICAgIC AgICAgICAgICAgICAgICAgICANCjw/nFBqZ0weoKAgfuE0S0jmTc1IDi8ZRZ6mm4MzWATcSHbsptQnUe zFPyLyTOMiGpnEVbz8ZTfuGN4YfKLwA2NpV3JpBHnk BM1WAXGqJOYauBSaROAbMVEnAkI2NGMqTYdmAZ8AbTFlQHxhRBEhXMCdUB6JXUXhX961zpDdYO8CCq9G CkIlEW4tdm6UVrSkJEZrGhnBGaf6GFurJU6GhCUpyWAtZhMyJEFVYvZgJ4xyz2XyMdCbQCUBZCylRT8S j2WewIAqKAj+Hy2KNZ2dr1GmXOmtRhXgMU9vrt0QSQ yXZhGdQ7DrsYglWLXos3ugZYFsMP5ojURoGVY7DF4frzbtW5nakhLcJLLuBz5wQx2uDECvTBS6PzS8PA DRQA4UGMAqSSHogOCzJFRtACVVSM0UPPslEQI7FomcvyJbyVMhXUzwSK0ZVOTtunYuGvEhNISLHFt+Pg 7IPS6fn5WaYEucSaBwWM5qnp9OQBgRUpTaF0P6bUVa C7K3RMmzWg8YYAOdYQIxXcJkPEVWEWbwZV8KJP8jnbY1IS3VqSNbPNRiQFMaqUXiSAy8D11vrQUxAPrj PF6UHFN+Rosanne+Tw7ZLIGlMGYjFCEaXzCfDLFGHqBtJ9JnR3DEg6GpP3TcYM25iZrmdjAhTFidDL8FGO3r WQZgQPOFPE2KyAGciI8kkqJcCKNaKBCUBsQdR38zhT KmNFGhGRK2DPIyKv1GNZOnE0EfcsCddNdveyLuHDFeYWANTK3NJLawhyMxmXUcaKfcDU79rGczFF4YQp 0EWiMgGM4xxr3QeDLuAr9QTFVgVT0BRYQoCQSuQIIgZBC3GQIdOaGiCPbjBXMqODJsHVV6YLGkRDTmWO 2KNuVdGKUtKtXfIowiTNZwHDWuog0OFZFjYOCxNQl6 MoBuWDWfOJNpZMkkKCQjRQKtBFI7BMStFROlBF4LRmFhBWLzSZWwWRgnDOKyWOHdec1GESSsHJQiXJX9 RMUoJKFoZCYdOWnfPDBcNQIhXNX7SLKbPUVfDR2YPwSpIGQlUFF0OhJmRYTlFGSddu5SEYQfAKVfStdy LAIsVVRfPKFpOIxtZZUaPSKvOtK5DARqEGJtJY7VJl MrBGJbOEZ7RpEnLMLrGOKbgg0PQTGrGOYiROE0NmIdFRJlPJUuWKjuUJJvFFJ7JIkbHKLwVLJxAD3XJo XsRYSuPYF1ZTvxTNCxZVSapg6IWHIkGSOlOuVpQtIrJLWeOMQvYJfoCNLvMQH0EqY2WVTsJKKxNY2CXk XoUIDiKVn5XBTlQLInMCCwsf1RSYCgKJGgUOM8VkXw YJDqWIHyYAmzHRJvEMX0RPC5SWMwCKNnSE9NEwWqDUQbYEn5QWUaBQYxYTYqxi1DINQdHWFqGDV8BaNq PPCvDEKkGCyoDXUjUGM8EEMzYESxAYSsIZ6TIlHpUYZmIlQtKRMqWDThNIPvoz2USXCrOYAdQIK2ZqNq TLEkXPGtNUmmLAYfXIZrBAd2KHOdSWDnEX9WZtOtZE TcEaH8FGAiGZRoBLBiag3VCHUmPWFpAeF1GoVkDXXzXCXjUSo5ymZrtOPwGKk1TX0PU9XdlvVpRexUTl 7Fp358VJS4SEVrJn7SH5rrDg8hFGSkYKHENp0OVTl4F3RkECEvRYz4DCJzJYIvIOB1W3RpFmNaMOmeLW JmZTQ+NAh9LrLrGNWmTRZbGlKyUEY0Tav9EgP5NDN5 ZXQeKiVnCO0gLCJSBf8+HByblJJwsSjuGNGGJtZpDaDiRXveVWKFYa7B ID Date Data Source [id number] 09/02/2020 09:34:27 AM EST [facility] Name Value Range Interpretation Code Description Data Sanjuana rce(s) Supporting Document(s) Progress Notes [facility] YPHGLs6eGvVMNuEx55/IBGalKRSkb1LpRDxsIXj0LIegZEYxQ3NsWTR8zJ6bFZK5AEaHTgKeZvYnRvL9 lbm [file] COMPUTER ANALYST SUPERVISOR+Jv4IEPGkVMg1G0U4GREyMQn7S8FPI9IXQNVoJGzvMZrsGMYmDXe6G6G7SDEuO5ODH5Cspjfdut4+ HP1DI67JVLLkVWg3Z6W6eXRbY9H3cUlXiHK9MO9ZCY2PcBm1zPKekO0+SF2AU6DCMnXkBDi5E8D6zKAb C1S7wJhYiZI6FB5YQT9SiLPnCETwqiNpRc4vA4BPRM dRSrFNCOD9KX5RoPRbXL4KuNDXU3OytFQeLz5kAWhaoMPfjL1sOv4lQAwhLA4BOaVLUEiUYQA7VC1GyT ArPG4QlBZGK0WdyYNyPp0kJPyleLGttb7+WH4QGXYpCk7IDu1+POfuyeZoGxxOXkY4LRJbs0NdVYn4KM 5GQS6nvHtoLDO6Ou6PlIK0cJGoL0gBMY6NgMJhA07u wMJgKXQvYm9QNyI6uzNraK0ZNW91sUEls9T9DOEnV0aiTXlzr75eCEbrNYzQJG2pLZAPWOueLWwlCFB3 VvAkgdguGAJdJh5RRbVtZEd0zH0gqCP5TAY8YvredKCjMYqtFoArDfAgNuN4lRjxwhk4GSysNG7yCLma czptZXRhLyc+GMcqFOApDFDrXloVWRIkdW9wgxY4lf IkJGozqBUrHv8qc1w4DdinBc8dZu6lPPc1FuDtCtVnEAWdHu4axD96QTflfoGoQn3DWlTiGCD3K5RaZb pSREY+TOujWMhwmIx8jRSmJHHkXh8AOBZfLPFiKLHqUIUoDQFmFUQqDKVwBYLwDUJyNVXkAJNdITKcCP AgICAgICAgICAgICAgICAgICAgICAgICAgICAgICAg PKQiROSrUAMeNDSvMEXbZXRwUPRlWKWiQZJnKIUkFU6KNDMjKISxFCDgKDUwTKNhWZExPCWhVNJsACQw ICAgICAgICAgICAgICAgICAgICAgICAgICAgICAgICAgICAgICAgICAgICAgICAgICAgICAgICAgICAg MYFrQKRsPQWwOJGqOH5WPPUyQDYyHFJqAKVyGNOeWP AgICAgICAgICAgICAgICAgICAgICAgICAgICAgICAgICAgICAgICAgICAgICAgICAgICAgICAgICAgIC OxOTKgRFDzJDQqSMNeTNWzLSCeTPLuIX1FOMVeESCnZPErYVKdBQGsUBXsWBKsRVKeXFDiCADcYBOoXS AgICAgICAgICAgICAgICAgICAgICAgICAgICAgICAg TLAoAOKmETSyVPGoUMKxEPAsIGZlMKSwSLLfURPrWDOnYW9DESSfBCPqZGYvIOLyYDOqWSRlUMAlINLm ICAgICAgICAgICAgICAgICAgICAgICAgICAgICAgICAgICAgICAgICAgICAgICAgICAgICAgICAgICAg RPJnKAAvHEWuJOFcTHYuIF1YSSBzGTOwPADpFUNqDA AgICAgICAgICAgICAgICAgICAgICAgICAgICAgICAgICAgICAgICAgICAgICAgICAgICAgICAgICAgIC BiWXDqGRJdVUYjIUEcTFEuCULgATPwMGFmTK3VXTXbYVRqQJClTOVtCKOaECYiMPLiPRMsZKWfAPMaPY AgICAgICAgICAgICAgICAgICAgICAgICAgICAgICAg AVQoOBLdCAClNSAaJUBlBSLqCGQcCAPdKTRsJFSgULGbCSOgEY3DJLLrZKTfHBZkQIOaCWHoJYDdGAMy ICAgICAgICAgICAgICAgICAgICAgICAgICAgICAgICAgICAgICAgICAgICAgICAgICAgICAgICAgICAg PLSsHQMiXNOnUTMiXTUxQPNrES4EQABbPVWzFFHkTJ AgICAgICAgICAgICAgICAgICAgICAgICAgICAgICAgICAgICAgICAgICAgICAgICAgICAgICAgICAgIC AyFSYlZLCeHJZuLVWpWVRxTUEyZGSnNUMmKOIjAD4NLETzOHWdSTLvBLFfFMNeNZQtDJCgGETqWRLhOL AgICAgICAgICAgICAgICAgICAgICAgICAgICAgICAg IQWdSBScMYNnWICoYFDrCVBoQJYrJNTvAHNbCIFrWRXyLVGsJLZzHF5BTA79lPMaz6K7BGGpSE9hjjx/ Vb8ZJCvwobUyfBNoIM7CRtOiNI6qdc0PMxPmHH6eni6DSIpITxCnR7W6sJTbGROxLLSUMlTuT81cQMrg Tv39AAaqZAAzTnDgVOe9Ym6SXnLmN2vnXUKtJoO1QV DzKcFaBIrcPU6Vs9BzzNAhDGw+Xb1OSC1xs4WsPMumRXUtBP6fyn2DTAkSCyCbE5ZqhwN2DZQ6RPZdHn 2YYULcZFTitACbZhQdAFAZQhFxA7RtcU81GBWFYb3+EBuagoTbDmeCXkV7NYOkr4GbATo1DQ8PZCUqGC c6hCUpSPIgJ8Gnb2QvWq90ODWfAqzeHOGtfwPOr1zb DMTnwMUqXsA3DgQdWgQjLDI1ASFvZJ9iRJtvNT6UJJD4HQllRCKzZBJdV0bURyTbKHeiIDMkcRxpNS1F YwXkC5JupiZviMLjBTXbZATYGv1+JDgbjpWoQpkRRbC3ZJJkt7JxNWw0UE3SOAHcGNqgEF2JHMHgaP0j UDsbTF9TPvPnLgInQRAGOaJuK63yvLQzKXm1B6TsDy VkZGVkRmlsZXMgPDwvTmFtZXMgWyBdDQogID4+ID4+FAhjLI1DJEdtqyLsPKMrKe1OESDjJFCeHL4jBT SlVTHfI5V0jWgnZKDJUpIqK8gdnppfMD3dTANeW324qLkobbPcBOK6MWBgTz5MRRPqNVX7UULwyTMuYa ZzNMRTIOfmQB1VaTUiYIH0kN4pHRvaUFXlYWKfA8mU BmJljAfcTE80nMmnscPwxLGkDHh+Rw1OJC4gt1IgEJq9hjRfDOptNDV7CNocFPQqBSFkNXUpZWF2JTW2 MWOMEbXuEXWiOZMvGKvyDCIgIVHujz2YIWXpVICqVTZ9MiRqDFObBUGzAXzuJWPdWFVzWrSuYUMcDPBl VZ4YEdBpLIMeNQXjQHyuUTWyIKNiru8JKJJgRMIbEP E6BaHjYSUmOQCiSCznCWUjUNAoZKn3UAUgMHMyIC3LUeCfDYJdQFN3LyJeVARoBHYiel1MXVNtFEUdAq RzNwHeDTZeSLHdXAslYCRgBMKwRwUgXZScBGTgEN5XNrRfTUUsTGUlFPStRBHcUIHacw6GHJFzCZAnKR V4VzIzCOKkOYFePNcyWXLxBHJ2PAM6ABQcSMFpJV0L PgXqWHGlQTE0MMyzGOSaTGNlmt4CSTAlXQSkDaIuKOIoKIDcJPRaTKxtTJSkHNU3BEElDAXcEICfQJ7A OxMuECRyDMr9MoYtUEGaYKEtzy7FCKIcQXUmGubuZYCiCSBhCZHpSWhxOOUxRTO8ZbJjJQObNFWwMQ6C GyWjCUZbSVx3HJLaJSPkCCMfda0OUFGhRGMnFWPeKS GfZHZsMEXsBBwtITLbFZSlANjdKZObKTSgUH7IBpWkPIJxUdZtXIksAVBtWTLpzu4YSXHrTQIiZZVxQW RjZXRuDPAgJBuqMUYtYFJqSVYcLLQpQVXwFF0URyHdUHUfWjDoSWSaIHOdOJLdds0MWSOiPBQlAgI7Mb GvQJBaPEYiYOgyGGPcLIQyBZDyHIKwNIPkQP6AZhLg TYbiPBRIVup0LVmtL1g7QZDaHH0GG6Rwl2LyMpriRLWYTEhbBJ4ymuTuFESzZx5ZL2qDDqmaRtKvSBKv TNR1HFN7GNQnDQMrUMV0I6H7CERhMYE2DR7kLBHlDmZ9UaLeFol9VQA9HzCiPKX8ObRbGkD8BCZmDsV9 LmVoJV2PCh8XHlG9VLU7kUXbXb5NRxY4VXcZLuIrNK3ZLGf= ID Date Data Source [id number] 09/02/2020 09:15:00 AM EST [facility] [address] [place] [address] PHONE: [phone] FAX: [phone] Name .................. : JAROD Ross Acct Number.................. : [id number] ROOM. ................. : CCU1 Number ................... : [id number] Stay type ............. : I/P Discharge Date......... ... : Admit Date ......... : 08/31/20 Admit Phys .................... : VANESA Date of ....... : 1955 Family Phys ................... : ADY Phone .................. : [phone] Age ................................ : 65 Film# .................. .:[id number] Sex ................................. : M Unsigned transcriptions are preliminary reports and do not represent a medical or legal document CHEST PORTABLE [id number] COMPLETE:09/01/20 11:10 SYLVIA 4435 (REASON FOR CHEST: TUBE PLACEMENT CHEST POR TABLE, 09/01/20: INDICATION: Tube placement. FINDINGS: Two views submitted. Endotracheal tube in place. The tip of the endotracheal tube is 2 cm above the pooja. Pulmonary vascular congestion. No pneumothorax or pleural effusion identified. IMPRESSION: Endotracheal tube tip 2 cm above the pooja. Pulmonary vascular congestion. Electronically Reviewed and Signed By Sánchez Aburto MD , 09/02/20 09:15, MATHEW Transcribe Initials: SSR, Transcribe Date: 09/01/20 11:21, Dictation Date: Copy for: 710 MED REC DISCHARGED Page 1 of 1 Name Value Range Interpretation Code Description Data Sanjuana rce(s) Supporting Document(s) ID Date Data Source [id number] 09/02/2020 09:21:00 AM EST [facility] Name Value Range Interpretation Code Description Data Sanjuana rce(s) Supporting Document(s) pH, iSTAT 7.433 7.380-7.460 Normal (applies to non-numeric resu lts) [facility] PCO2, iSTAT 42.6 mm Hg 32.0-46.0 Normal (applies to non-numeric resu lts) [facility] PO2, iSTAT 100.0 mm Hg 74.0-108.0 Normal (applies to non-numeric resu lts) [facility] TCO2, iSTAT 30.0 mMol/L 22.0-30.0 Normal (applies to non-numeric res ults) [facility] HCO3, iSTAT 28.5 mMol/L 21.0-29.0 Normal (applies to non-numeric res ults) [facility] BE, iSTAT 4.0 mMol/L -2.0-2.[address] [facility] SO2, iSTAT 98.0 % 92.0-96.[address] [facility] Lactate, iSTAT <0.8 mMol/L 0.4-2.0 Normal (applies to non-numeric results) [facility] Site L Brachial [facility] System Mode CPAP [facility] Delsys Ventilator [facility] h System PEEP 5 [facility] FiO2 40 [facility] VT(spont) 420 [facility] PS 8 [facility] RR(spont) 20 [facility] Employee # [id number] [facility] System The above 17 analytes were performed by [facility] [id number] [facility], ,[place] [address] ID Date Data Source [id number] 09/02/2020 09:02:00 AM EST [facility] Name Value Range Interpretation Code Description Data Sanjuana rce(s) Supporting Document(s) C-Reactive Protein (Non-Cardiac) 210.00 mg/L 0.00-3.00 Above high no rmal [facility] The above 1 analytes were performed by [facility] [id number], ,[place] [address] ID Date Data Source [id number] 09/02/2020 06:15:35 AM EST [facility] Name Value Range Interpretation Code Description Data Sanjuana rce(s) Supporting Document(s) Nursing Note [facility] YGBXNn7jQpMCRyQy86/FRTsdLPHln7VaCUqdMAi9MLwcMLGuO7CwUWN6lX6zXCZ7SXrIAdReWkNbOnR9 lbm [file] Q[id number]= ID Date Data Source [id number] 09/02/2020 05:16:00 AM [facility] Name Value Range Interpretation Code Description Data Sanjuana rce(s) Supporting Document(s) Glucose, Fingerstick 241 mg/dl 70-110 Above high normal [facility] The above 1 analytes were performed by [facility] [id number] [place] [address]#: [id number],[place] [address] ID Date Data Source [id number] 09/02/2020 05:05:00 AM [facility] Name Value Range Interpretation Code Description Data Sanjuana rce(s) Supporting Document(s) WBC 10.01 x1000/ul 4.80-10.00 Above high normal [facility] RBC 3.83 x1Mil/ul 4.70-6.10 Below low normal [facility] Hemoglobin 9.5 g/dl 14.0-18.0 Below low normal [facility] Hematocrit 32.2 % 42.0-52.0 Below low normal [facility] MCV 84.1 fL 80.0-94.0 Normal (applies to non-numeric resul ts) [facility] MCH 24.8 pg 27.0-31.0 Below low normal [facility] MCHC 29.5 g/dl 32.2-37.0 Below low normal [facility] RDW 19.2 % 11.5-14.5 Above high normal [facility] Platelet Count 131 x1000/ul 130-400 Normal (applies to non-numeric results) [facility] MPV 10.3 fL 9.4-12.4 Normal (applies to non-numeric resul ts) [facility] Neutrophils 91.5 % 40.0-74.0 Above high normal [facility] Lymphocytes 3.7 % 19.0-48.[address] [facility] Monocytes 4.1 % 3.4-9.0 Normal (applies to non-numeric resul ts) [facility] Eosinophils 0.0 % 0.0-7.0 Normal (applies to non-numeric resu lts) [facility] Basophils 0.1 % 0.0-2.0 Normal (applies to non-numeric resul ts) [facility] Immature Granulocytes 0.6 % 0.0-0.5 Above high normal [facility] Nucleated RBCs 0.00 % 0.00-0.20 Normal (applies to non-numeric r esults) [facility] Abs. Neutrophils 9.16 x1000/ul 1.92-8.31 Above high normal [facility] Abs. Lymphocyte 0.37 x1000/ul 1.20-3.70 Below low normal [facility] Abs. Monocytes 0.41 x1000/ul 0.14-0.97 Normal (applies to non-nu meric results) [facility] Abs. Eosinophils 0.00 x1000/ul 0.00-0.76 Normal (applie s to non-numeric results) [facility] Abs. Basophils 0.01 x1000/ul 0.00-0.22 Normal (applies to non-n umeric results) [facility] Abs. Immature Gran. 0.06 x1000/ul 0.00-0.02 Above high normal [facility] Abs. Nucleated RBCs 0.00 x1000/ul 0.00-0.02 Normal (appl ies to non-numeric results) [facility] The above 24 analytes were performed by [facility]'s [id number], ,[place] [address] ID Date Data Source [id number] 09/02/2020 05:41:00 AM EST [facility] Name Value Range Interpretation Code Description Data Sanjuana rce(s) Supporting Document(s) AST 27 IU/L 15-37 Normal (applies to non-numeric resul ts) [facility] Sulfasalazine and sulfapyridine have the potential to falsely depressAspartate Aminotransferase results. Baseline values before medication administration are recommended. ALT 46 IU/L 16-61 Normal (applies to non-numeric resul ts) [facility] Sulfasalazine and sulfapyridine have the potential to falsely depressAlanine Aminotransferase results. Baseline values before medication administration are recommended. Alkaline Phosphatase 74 mIU/ml 50-136 Normal (applies to non-num awa results) [facility] Total Bilirubin 0.30 mg/dl 0.20-1.00 Normal (applies to non-numeric results) [facility] Blood Urea Nitrogen 24 mg/dl 7-18 Above high normal [facility] Creatinine 0.73 mg/dl 0.67-1.17 Normal (applies to non-numeric resul ts) [facility] N-Acetylcysteine (NAC) and Metamizole villanueva ve the potential to falselydepress Creatinine results. Baseline values before medication adminstration are recommended. Patients undergoing treatment with phenindione will have falselydepressed results. Patients on phenindione therapy should be tested with an alternativeCREA method.Toxic levels of acetaminophen may lead to falsely depressed results forpatient samples. Glomerular Filtration Rate >90.00 mL/min/1.73m2 [facility] GFR Reference Ranges:Normal Function or Mild Renal Disease,if clinically at risk:>or= 60Moderately decreased:30 - 59Severely decreased:15 - 29Renal Failure:<15 Please note that the MDRD equation requires an additional adjustment forAfrican-Americans (multiply the GFR result by 1.210).Glomarular Filtration Rate (GFR) is estimated based on the MDRDequation, which assumes a steady state for creatinine (Yany Int Med 139/2 137-149, 2003), as recommended by the NationalKidney Disease Education Program in conjunction with the National Institutes of Health and the National KidneyFoundation. The Oxford method used in calculating this result is traceable to IDMS standards. Glucose 261 mg/dl 70-110 Above high normal [facility] Sulfasalazine has the potential to false ly depress Glucose results. Sulfapyridine has the potential to falsely elevate Glucose results. Baseline values before medication administration are recommended. Calcium 8.0 mg/dl 8.5-10.1 Below low normal [facility] Total Protein 5.7 g/dl 6.4-8.2 Below low normal [facility] Albumin 1.8 g/dl 3.4-5.0 Below low normal [facility] Sodium 140 mEq/L 136-145 Normal (applies to non-numeric resul ts) [facility] Potassium 4.8 mEq/L 3.5-5.1 Normal (applies to non-numeric resul ts) [facility] Chloride 106.0 mEq/L 98.0-107.0 Normal (applies to non-numeric resu lts) [facility] Anion Gap 12.8 [facility] Carbon Dioxide 26.0 mMol/L 21.0-32.0 Normal (applies to non-numeric results) [facility] The above 16 analytes were performed by [facility] [id number], ,[place] [address] ID Date Data Source [id number] 09/02/2020 01:03:00 AM EST [facility] Name Value Range Interpretation Code Description Data Sanjuana rce(s) Supporting Document(s) Glucose, Fingerstick 244 mg/dl 70-110 Above high normal [facility] The above 1 analytes were performed by [facility] [id number] [facility], ,[place] [address] ID Date Data Source [id number] 09/01/2020 10:29:53 PM EST [facility] Name Value Range Interpretation Code Description Data Sanjuana rce(s) Supporting Document(s) Care Plan [facility] XOOWUq1mZdWXFiDi33/RXVwsZTIba7VyGFxxXAv6VEhzSFOlX8TrGTG6jU5zTRB7MKpRXzKjAuUlJiU9 lbm [file] TcOcW9AVD4TLq5HnM+TJ0sIJg+Jn9Tb1ZvmoF8hmNvRRjyOhv8UI6QABAPE3LFRl== ID Date Data Source [id number] 09/01/2020 09:34:04 PM EST [facility] Name Value Range Interpretation Code Description Data Sanjuana rce(s) Supporting Document(s) H&P [facility] USRQGw0vCbVUScNr14/ZCJdjVYIby0TkOGzoASm4XBojCVCdX8PbJJL6zS9tQEJ4SGmSVeSaKnTcAkA6 lbm AjIrqWGzDeNTZvZieBGdPrXTnfLascwLEjKE7ZgMX4WDFrR23yCDJcBTApS7IiKNO1XUG+Ut4VWBPvzR HcLK4GDajJ7L1Fz1yTTj1i4c7DTAVwuaCck420XlMts3Gojsdjk7cfWqLxcvPNYJdLrm+SSJH1wk/R4I GZJfUY8fFTOG60d50QcQE547r1YEnt16vo/2zu44Yq dNs63dc2q+tr74b9L7bp4hWcOa+uXyh/2aL5D84CRsUo+9QbuWRP5BVMjZsWPVs1tLEexLWgojxKeaTM G94cGq8Ver+l43fyWjhfApfsOhw39eqTstmtIOyVzg++/E6N/i63UAEufvPWcFxxW86/JlywRXy91CS4 9Tk4oGXSoxB36644fK2n1AeCNpN3Zv6i03U0yMP4sI [file] AgICAgICAgICAgICAgICAgICAgICAgICAgICAgICAg ICAgICAgICAgICAgICAgICAgICAgICAgICAgICAgICAgICAgICAgICAgICAgICAgICAgICAgICAgICAg ZNOuVLXdQI7FXSUdEAZdGLKsUGOvQAEfNNSpTFMxWHYkHVThMPWkLHGmDAIvAFEoJEUuCSNgOJHtOGHq ICAgICAgICAgICAgICAgICAgICAgICAgICAgICAgIC UtVFOiKKVyQVGvREYxTKRcMV7YYXMsDSXgFGEtOYEsZKFuSELfCENtRABrSILcDZOkOXRbDFVdRYYfJE AgICAgICAgICAgICAgICAgICAgICAgICAgICAgICAgICAgICAgICAgICAgICAgICAgICAgICAgICAgIA 0KICAgICAgICAgICAgICAgICAgICAgICAgICAgICAg ICAgICAgICAgICAgICAgICAgICAgICAgICAgICAgICAgICAgICAgICAgICAgICAgICAgICAgICAgICAg KKXhGARkQEJqKO0SDUInRRWhEMLjCLJfMJHiJFIgQMUjPNSkYUOpVBMbPVEdRPZjTSMxQZHjATChNOJs ICAgICAgICAgICAgICAgICAgICAgICAgICAgICAgIC KxCMXhMNGhPUMeSQFaYCZyVZGkUB1OGGFvCPQfIWQfAECjZFYzWOSuIDPbRMNrYOJaFKWzVKGgFDShQW AgICAgICAgICAgICAgICAgICAgICAgICAgICAgICAgICAgICAgICAgICAgICAgICAgICAgICAgICAgIC PiRB1FHIBbJFFsIMNnSPUlVCCxRJQmCOMxQCZtVSMl ICAgICAgICAgICAgICAgICAgICAgICAgICAgICAgICAgICAgICAgICAgICAgICAgICAgICAgICAgICAg GMLjNUPbKKLbHDZkAC6ETISbWQRkYGYzBTGkGRRzLILsOFWnHRKeOHZkSQPkRTVsAUHzSUEcFGXzELEv ICAgICAgICAgICAgICAgICAgICAgICAgICAgICAgIC PnILBaIEGqFLXeNWNyNYZhRXMjWIHdOH4BTEWqEPXlHITvMAMdVVLdHLNyVJBnYBBwCNWqPWOhWZDlTT AgICAgICAgICAgICAgICAgICAgICAgICAgICAgICAgICAgICAgICAgICAgICAgICAgICAgICAgICAgIC BrMADdNM9ZVZ11bYMjx1C6QVGvAI5kxgd/Ll4RHFsq yhErjBAfJF8KDzXwKU9wvu1IZdVfTS5txn9WPTzSNhSrN0H1dRVqDUTsWIHJIpEvV78cCGdvCs30CYdy IADzQjSnTMa7Si2WPwEkM3jlKOYjTuO7OUNsHpU0ZVUhXqK7BNIvOnRsUVFvPTMlAYChJHGHTDL4SHPt CwKhBuClYPAnET2WVOTaX969udBqKs4EAp2HHkYsXW 3dyi6LKEJyINHvNmqRNad4OTrxMG1DhERnmUV1UXWnGSNKWaMaJ4mor5FiQYKeEWFUHSohGA5Sl3MqgX AxDQo+Xq3FOJ6ky0JmHTu7NOQoTL4xny4ILRdAKhPzK0NtkDanAClpZPOoxZDCnZJelVttOAwrreL8y1 HjSb8qukYpoqrpZCLaHSYtHe0aOs2cEDDfJAT1HdNn XYMGOO1VJBRvVGJreZEiKSZzAQQKTP1LAXvrUPO7RadqaaLayGYjVPmbVC6BUJFbtsZvHGKnRZGUQVw+ Ch7INW8gh2EbMQz4DmRzGV4ces6KKJbCBoSfV1D6hARcC9D7SUotGl8JTAWiEHDmCjtlWLLKHHxsWJ4L HV0vtxP2VR7FgGYrULWnWTKzxJDyQXm4I94wmCAwWS xkJF0ZNGY+Rosanne+Eg5EWYSpDPCrHMWlRoJzPLKIMtUxV6HtM0ZBp5ThQ1PeEP05pMxozdUdKUpeOU6QLG 9eMQMhSTOURO1KaANyuW0xhzZ2KHLaZPZRKaHvX01ctVJhCCDzDUX0LJNkZv0JIVQyS2CadxQkuBessv AsXXCwSMHUTX3FFVhwzcYcrTKaoMrfAR05tHhcSN2E Gg8XNdCeKB0boy5TjCYrFg0ZSAM7Mz6MLTKaHAInECLyGEG8DIZaYjJjFUsiMIVbFZDlVZM5LAIvNELe IO0HGdSuBJJjGKb1OUehYREyCIJpfr8HXDRvDCC9XSZtJZJjJMWvDODzTRiqOBKkVOTiFLA0PDOeEUOc RZ5RSvXqZBMwJPZeCSNiEMQcIEIjuz5AUPLxOFFyLg F0KbPsZQZbACIkPQkeAKGmGJM1TUO0BHGfZLZlQX0HFrBrJMSeJNqbJzTlRGXtKLLdnt6MXLPaCMPyFA U1CmPrAYCtQMJdYKfsGSSaRIB7VawqZFAiNLWkYI4MMoTzPIFaKTR0ICcjMXXsOJXlzx6FZXDdEWAlSX jiTwKwTDIyVKQuJMpuONAaPKY8KTU7ZSAhMKYfBF3F JtHjHXUyXKKtNuOgQMOwHVEwnl3XKTUtVYXiOwR0BKHmITBbHXZsLHgjCVYuEXD2WkcrVWGtLHCcVT6T CvUnBOByBFntBSNjBRAaNTNitv5FBLOuXZIyLFB9QyJtQQHlRLXhGLiqQLXzVOM5XoV8JSZmYYBaTH6H FkBwYPXzJUe2ZQpaSVAcMOUjhe5EIWYmNPYzNRgcJy PoYVKbWHAzHCjnZGNlGSAaYeh8HPIaQNWmIL8JMyDtTTNjBhX9ESKlOTSyANNpme8GPPXrHJVuUPP4Gc KpCWMcLLWhVUgfEMRsOOByJRO2FRUpGKKvGE4WHaRgNVMaCnEpDWDcGMCfTTDsow3CTYEcSQByOxXhBp AmEJCeNDQaTKiwBVFjKZZiIsvyCDIuBQRtMZ6CUdMd VVMrZbL5ZXAjQHJaDJDihf8HTKAqWLJpWgq7AiMhWYEhPTDfSTqqKSUoHGS3PpK6ILMjBXTxGT9TVmXq AHMbHZC9KIFzCGQjHMNevd0CLXOoOKI5JkXvTHJqIIMyMTFdJDfnBOQzRKE8URAvTWEfKQOjEX6WVyAe AVBuYBwmRRXcJRHtUQLpyh8HMPMjYJI6BEW6NdUtGD BkTSCuUXwjSLEfRWG8UzUzLRJhGMMbRK1QExAaZWNjEWf4BxFtMIXxKBDjvf2JCHGkYIM7FBd3CFEpHM HtESXvGYrxBYFdYDDfWdBuLQFuCASsLP3HRpYpJDKrOQX6HkHrSCPhCXWuqm7PRJJlIKD0YQU7GEGzAY NpCYCwODr7dmElqJXuMFw3OC2SC3WrbrXiJLNQGc7O f881LWUkETFqBf3HM0qwYs0yZZOyBPVYLc8QEDn8RQrwXMH2Dob2HMg8MGDvWVMoCzQvKXA0NBC1UEYo MWM+EDblXSI5MUt0XSEvJzM0XJJtW5TsNXW4FyByQZD4B2NuXk6qNCVEFu0+DQpzdGFydHhyZWYNCjUx IPY1HMsfODKTXb4O ID Date Data Source [id number] 09/01/2020 09:37:00 PM EST [facility] Name Value Range Interpretation Code Description Data Sanjuana rce(s) Supporting Document(s) Glucose, Fingerstick 281 mg/dl 70-110 Above high normal [facility] The above 1 analytes were performed by [facility] [id number] [place] [address]#: [id number],[facility] [place] [address] ID Date Data Source [id number] 09/01/2020 05:21:46 PM EST [facility] Name Value Range Interpretation Code Description Data Sanjuana rce(s) Supporting Document(s) Nursing Note [facility] NMNVEi5uZcWZVtCt35/NGWlyHZSvs4NbFZspDQp3ARueHZUbR6CcVXB8rN2vIUJ3TTfYBaTuPgIaPbR6 lbm [file] AgICAgICAgICAgICAgICAgICAgICAgICAgICAgICAg ICAgICAgICAgICAgICAgICAgICAgICAgICAgICAgICAgDQogICAgICAgICAgICAgICAgICAgICAgICAg ICAgICAgICAgICAgICAgICAgICAgICAgICAgICAgICAgICAgICAgICAgICAgICAgICAgICAgICAgICAg ICAgICAgICAgICAgICAgDQogICAgICAgICAgICAgIC AgICAgICAgICAgICAgICAgICAgICAgICAgICAgICAgICAgICAgICAgICAgICAgICAgICAgICAgICAgIC AgICAgICAgICAgICAgICAgICAgICAgICAgDQogICAgICAgICAgICAgICAgICAgICAgICAgICAgICAgIC AgICAgICAgICAgICAgICAgICAgICAgICAgICAgICAg ICAgICAgICAgICAgICAgICAgICAgICAgICAgICAgICAgICAgDQogICAgICAgICAgICAgICAgICAgICAg ICAgICAgICAgICAgICAgICAgICAgICAgICAgICAgICAgICAgICAgICAgICAgICAgICAgICAgICAgICAg ICAgICAgICAgICAgICAgICAgDQogICAgICAgICAgIC AgICAgICAgICAgICAgICAgICAgICAgICAgICAgICAgICAgICAgICAgICAgICAgICAgICAgICAgICAgIC AgICAgICAgICAgICAgICAgICAgICAgICAgICAgDQogICAgICAgICAgICAgICAgICAgICAgICAgICAgIC AgICAgICAgICAgICAgICAgICAgICAgICAgICAgICAg ICAgICAgICAgICAgICAgICAgICAgICAgICAgICAgICAgICAgICAgDQogICAgICAgICAgICAgICAgICAg ICAgICAgICAgICAgICAgICAgICAgICAgICAgICAgICAgICAgICAgICAgICAgICAgICAgICAgICAgICAg ICAgICAgICAgICAgICAgICAgICAgDQogICAgICAgIC AgICAgICAgICAgICAgICAgICAgICAgICAgICAgICAgICAgICAgICAgICAgICAgICAgICAgICAgICAgIC AgICAgICAgICAgICAgICAgICAgICAgICAgICAgICAgDQogICAgICAgICAgICAgICAgICAgICAgICAgIC AgICAgICAgICAgICAgICAgICAgICAgICAgICAgICAg AQVnZHDvCCDaUYViIMHmTZWfYZErCQZbQYQmJPLtPNPqIXLpORNsPCMaMWa0T2gkGAXeAVKcSU8iIWg7 Jz8+UPiBGwChJGS6fyPcsW0CSX7zl1HrJVafRCCyk5MtSXm7LI4QGFFrUEudER2XVJifxc0YJYJaVCIx uROXh3hcZwRhXQS9NPZyBwduNB6OWQSfG1phzzSrZH LoTRGBKT1NLeTpM0DlmI91LOSIZz4+KUsnnzYyWdrFWkJiXFIzk9GjBRh2RV7PUBEsYaqlu2XfLrSbHB FAILsfBP2MZLB0WDCvQBHrTh0LHGOcR463lrGdMQ1IVr1CDpDfTI0sag5SRvCgFSJqYbjYTlm1YJkrRW 0PlDEjCSeMjLFqxR7lWQ2kbQGuHgevE6QgqFdtzhqy DDkbwVRgxSmoIp6vOIKpIj6fCm4gBCAmTDO7IuUeGFCZNM9QECSxRPKnmZUqYMYaONIHBR4ZLPkcBVP7 KmnqrdMxaWVmCPihOM0QUMVjynErGjCoQEGADVl+Fk1FQY6jt4CmMVnlLSRfSS9mrs7ERGmXNuAtD3X8 yGSpT4F1UAssHa5LZKXtXNMqBhJiIFIYJJowZZ9ETH 9rjaA2DO3IcXKeSQDhZFTdkDVpYCf4E58kuZDhEOmcSP1EOUK+Rosanne+Rn3EEHBrJJBwNUJcGiPiFIAZPn IdA8UmF7SPv8ZsL0WpUA72tCejfeNrCJshME8ZRK9lRQTtGQEQOZ9WkYErjA4lpjSzOfXxHXTYXeZnV2 3cvIHsJDWyDHPzHMSuYz9AYSTjF1EydoLanGlfijUm BXTnHOYZPF8SZQelytTsoDFhtCulIE54tUjpFK1EKb4DCtFsKU9tyz9CzVGjDb1IABTkRX0UEPXfBOPw PTWzDPQ5RYPuKbJfUPgmCKKoSQDvTKL5XNItJCWfWS9QDuSrXYFuZTi9VoFgDFUgZCNeoa6WWZJcSJWf FMM9JPWfPGYzQNJqHSloGECmNWKhUKP3VEWeVYEzYP 2DTvAvZZLrXSWhPQitPMThFDHqmu7GWAMtMMToLoJrKKTfRXDsJYAzPEofRUKuYWIaVEX0WHDsMMXuNQ 6PHoCbFKKgAYB0JsKhUGEcRQZclj4MBZNmTXTnGvr9KUHgOEOeGBQuBAunXZWbZLT4CGS6BVWpKUCrLU 1YEpCaIMMjRFCqVCXtPTIqBDOzmv1VJYOkADNbSFP5 UfMrBWClCOQdEHgcYYGeIQA7FeIyPLJwSFGfZS7YOsTzCNWjLAr6EEvtOUUdIYUwzf4ZTZSwVTKvDEQ2 MhHgLIJkOLOeUKyqMARlXEW2Dwr0WCAwGRXgRX4FBtSdMHLbXOd8NJNqUIGuSUSwty6WOFQnINUuVVN2 JHHlRUElBFYgKUxuDMAoXYN8KwjuMFQsVLVvDL4VCt OyNUZsIHh9CPWjSGIgTUAphg0SFNYeGVFmWDI5HVMwAKVeIUSjUDpmPXJqKCKdLfs4DWTdTVDqPD9ACk JiYLSdAuH2DhxrNCGiRITmwm2SDEJhXBXtXZdoVjDkILLdNNGwRAq2kyNxdKPcTOf3MA2UA5TsbtHtKo OJXj2Xv430DZJ6MHAsAk1XB2aySj6zBUPwWXBIBu3M LNt7PQs4RDHnTECnZoKqFUPzUPZnSWIjBqYpFPM6RCCeMPS+GKoiQXg0JKSfZ1F9EHP0UwJaSkH9Z7Yi ZFQ7WIB5EcO2QD5nMGXQTh5+UIssxVFgdUpbYEEWEmTtGFFnCUvuXEWGCc9E ID Date Data Source [id number] 09/01/2020 05:15:00 PM EST [facility] Name Value Range Interpretation Code Description Data Sanjuana rce(s) Supporting Document(s) Glucose, Fingerstick 298 mg/dl 70-110 Above high normal [facility] The above 1 analytes were performed by [facility] [id number] [place] [address],[facility]#: [id number],[place] [id number] ID Date Data Source [id number] 09/01/2020 04:51:55 PM EST [facility] Name Value Range Interpretation Code Description Data Sanjuana rce(s) Supporting Document(s) Nursing Note [facility] USXYMt2fHpBKAlCv12/YOJggYIWjo1RxTBnfJYe0BTayISWhX8HuDEC4lL2vYHS6IYgULoHfPeHqJvO2 lbm [file] AgICAgICAgICAgICAgICAgICAgICAgICAgICAgICAg ZWWqLREqTZUgCS6FXMOmTINkBRHaILRdZFCfFUKqCTUpFQXtOTYsTJCiRCBqWEVzBLSbTRCyPMHwBNCh ABLhUNLnJZKuHLIxLASyBYBsCAAmIFQoRQVmSIWxEBMqCCJzMSIbNZScVPXaGOJeUKSrOS1YZBKhXNSp ICAgICAgICAgICAgICAgICAgICAgICAgICAgICAgIC AgICAgICAgICAgICAgICAgICAgICAgICAgICAgICAgICAgICAgICAgICAgICAgICAgICAgICAgICAgIC IfDE4GXPRlDZOwKUGrNBDnILLdAOEpBRZvJHJnRPHnWCIcXYKcSGVbFRVcPKLsKLZpHNPzEQIpRNGbGH AgICAgICAgICAgICAgICAgICAgICAgICAgICAgICAg BEQiWYKeHSZjFRNzPD0KWXXeLACyUMQmMRWwYNIzQXGhJCAsGTFqWKVvUBLeFPDqINAfHVPpMFTzVBCk DWPkRIBpNSRcRAExYLXaBALcRSBqXBNuMWKyMNQlNXXdFIOiTVElBGAhLRBaHJFbPIDvKYZuKO0DGDQk ICAgICAgICAgICAgICAgICAgICAgICAgICAgICAgIC AgICAgICAgICAgICAgICAgICAgICAgICAgICAgICAgICAgICAgICAgICAgICAgICAgICAgICAgICAgIC XlAAJuEU9IOGRkFRMgRJNkDSOvZRHqIKYqKRSiXVGlKKTdVMRwURHbLCPqCJWsIJEhUATpPINsRJXxXI AgICAgICAgICAgICAgICAgICAgICAgICAgICAgICAg AQUePFYgVHMiPSUcBGXkKZ0HTOAcQZQuBXLhTROvXBWdPVTpACKbJIWtMBNfANQqBVHeEJQpZDXwMYDx GDGyHCYqKHIjIHRpAFAaXQEsLROpRXIaNUVaUJPlICMwGYGyVXSaCDOiRAItOQNkHIHsISAiXEVePT3W ICAgICAgICAgICAgICAgICAgICAgICAgICAgICAgIC AgICAgICAgICAgICAgICAgICAgICAgICAgICAgICAgICAgICAgICAgICAgICAgICAgICAgICAgICAgIC VkUSVkXCSeAJ5SFOVdCDHnSRGxQTSaQPErVFPyPLRmBDLjPRImWOYrIXOuNTWiUZArBKQfDYPbGGNxPV AgICAgICAgICAgICAgICAgICAgICAgICAgICAgICAg PEYoQPPwRKMgQUOxFMQbNWCyIX2WSM16fTEzn7H8PRHyQW2oclv/Bx1AATzwsiPcpGCgMR9WTmLnRQ1l hh3HLfWcWL8iao3JKWuETiPxT9C5oAFyTIZfDYTYPwWtL16xXUqnEz97HWazIIZtDpLiLKr0Jc7QKjHd I5zvBJHaYwU4QJNcRlMpMWkyEY8Yb0AxdRJuZUl+Pg 3PLP3nj3ZkYFcdHeGhHB6lbx0GGDjIKbPpF0YhnuI7LNI0DAJxKf9XWOGjGJXdsPXyVPXkQOTQIkRkM7 ZdnM35KLFSFi1+IGwyfqSxWamHUzA1MIAod8QpUVr5HH5EJTXaUDr9aMDiOnQif3joTpBRk2VwITE7OP Stp67wINTXp4FlilteNd7oOMHrGw7wEc5yBBOlDFG7 AlViJCFPSF8SGQWxMLLmgNXrZUGqGUPSAR8DNRreYNM1PztnlbHkgBDiFEgeEN3FOATnqgTuLpSoDJOD DQo+Oi0CWR3po2UhSBuzCNIiKN2vue4TOGeRYbXuC4C8fBHuJ0J4MNqoGc6WCJQxCHFpYmKwBZKFWQac VM8XKH8xhsO5ZE8ZgHWnOAJuPUKhaWBlTFr4Y56muM GsXPxuVI0CYKU+Rosanne+Kq4XNYXrUEIzSAOlXnEoXTRINsIeX4MuL7VYt1CyZ5WlSP65gKyhizLeANpxOF 2HZZ3jINJaXFIDFB4TbKXdeL2lilFtHuUoLNKUBwLxV92haDGnHZFcMZOgYBYwVf4WTPNtE8LnfvFvkI robgVqTWIsSOSGRE5OLWgsozMjwSYiiOzjGJ70vOpy PQ5HCs0QVoUoBK9atr3YdWFgBw6RKWLiKx8FVIHmTSBkNJSoEGD3JBLpScZaDNyhGDUoMVSkGBV2SMPl DIJfJF8OYmSwBRQjPAtoPOvnOZVsZYMjuu5QKTIuILHqNSF6QuBaPAExYIZhLLivZEYyOQTfNNO6MDBw LEGwBD0FHvZjWYJoZZSuYpIaQVHsNMAszc8LQRBqSC NdRFLpJQZqXTKxCQMcSNhwRDYoOKNgJRt3RKNfEEUhRI4JCkSfJJOtPFZ0JGekGLEaRBTsdc9SLIRmAN XkMrp1QhDvLBDzZNEbXIbpSWWkGMBiDHOzULGiGWMdJC2BQgBmZNTcSPGrCghqNPXmBMQmsz7RQNPkKO TnKZCeZUGoCHFqTDSiAJzmJYQgAYL4SWh6ECGxWRXh PV2HBrLaNLYuISKwXSUkLXNeNVJvzc3VNEEyLOHaOMX3UnFtSPLcUDJbMWisUWLvEFK1LVO1YKWpXFMt MX7HLxCgRNOcXTI9EmAhKWJrGLZsvz4XZJWzEXMkLtuvCZFjVOXhGLJpNTqxPVLoSUR9DHz4WUIgWTBg BW6TNvJzRTFlEDhoSjihTISdKHDarj0WACVhWALsTU P2HJXeQWUcFRVcKKvoGOCrTKW1JzGgELZhRXPpUF2AKgVrFVMpRKYlEiVaCUDtKTVoln8ICIMwLQEfAP StDSQpPRDlFLZhTEpcHUCbXFPvMvt0KBRmXYJrWI0BLdMrHKdxFQWNOsy7YXsbT8t4SMKqKi0LK6Azi6 HyZnFbWIYTEMrpEO9pdqHnQUUtXj9AQ6wZOgoiKTJd DRN5ZSBnABLjNDTbLrB2CdNzUmH2A4L9JRO3QM9uGNV0VaFhYLcjF7JuEMQ1RQWsRtc2CPRfFpg5YUGy GQhgJgBcNX1UXr9XSyJ8FZP5fNOjBi2XBRX8TwSWQxSwEZ8RIZv= ID Date Data Source [id number] 09/01/2020 04:51:15 PM EST [facility] Name Value Range Interpretation Code Description Data Sanjuana rce(s) Supporting Document(s) Nursing Note [facility] PHXYCm1hAiCJCqXi52/GJWhzUYCwb7PpLTgmDXf4OIwhYOKxS6RkANF1xM4dSWG3YOjSIqWhCeJqOmD9 lbm [file] n6YbU5SVWlZLTcVSQyRralQfd+GZ0pJRo+Er8Iv5IzlxC8ilCgPArgLNViVb0SAGOLX9GZGa== ID Date Data Source [id number] 09/01/2020 03:44:55 PM EST [facility] Name Value Range Interpretation Code Description Data Sanjuana rce(s) Supporting Document(s) Consults [facility] IOXIIt6wNxWXHwBa44/NDLoaQCUmp3GrMVqeUSi7IJcoRAIeJ8ArBOD7sW5sUCO4KCwXUwWvEyEkNlU9 lbm [file] QqBRjcOpjgABe8D9R7JhJjLzW8VNu+YF0gTQh+Yb5Xa7AxvhE5kcXbDGdwEcM5Kf2JXABCJ3OVCw== ID Date Data Source [id number] 09/01/2020 05:37:00 PM EST [facility] Name Value Range Interpretation Code Description Data Sanjuana rce(s) Supporting Document(s) Vancomycin (Random) 14.8 ug/ml 10.0-20.0 Normal (appl ies to non-numeric results) [facility] The above 1 analytes were performed by [facility] [id number],[facility] [id number],[place] [address] ID Date Data Source [id number] 09/01/2020 05:37:00 PM [facility] Name Value Range Interpretation Code Description Data Sanjuana rce(s) Supporting Document(s) NTproBNP 915 pg/ml 0-125 Above high normal [facility] Acute CHF unlikely if NTproBNP:<125 pg/m L for age <75 years<450 pg/mL for age > or = 75 yearsCHF likely if NTproBNP:>450 pg/mL for age <50 years>900 pg/mL for age 50-75 years>1800 pg/mL for age >75 yearsCHF very likely if NTproBNP:>72033 (regardless of age)The PRIDE study recommends the above cut-off values. It also recognizesa change in a patient's "dry" value of >25% as being an acute episode of HF. Therefore, a return to their"dry" level at a 25% decrease is an indication of a successful intervention.The above 1 analytes were performed by [place] [id number], ,[place] [address] ID Date Data Source [id number] 09/01/2020 05:37:00 PM EST [facility] Name Value Range Interpretation Code Description Data Sanjuana rce(s) Supporting Document(s) Troponin I <0.015 ng/ml 0.000-0.100 Normal (applies to non-numeric re sults) [facility] Reference Values:Negative:<0.07 ng/mLInc reasing Risk of ACS:0.08-0.10 ng/mLPositive:>0.10 ng/mLConditions other than GA that cause increased troponin I values includebut are not limited to chest trauma, cardiac and non-cardiac surgery,congestive heart failure, drug cardio-toxicity, inflammatory diseasessuch as myocarditis, pulmonary embolism, inflitrative diseases, andacute neurological disease.An AMI diagnositc cutoff within a range of 0.6-1.5 ng/mL is consistentwith the WHO criteria for AMI.Concentrations of Biotin above 100 ng/mL can potentially result ininterference. Results obtained using [employer].The above 1 analytes were performed by [facility], ,[place] [address] ID Date Data Source [id number] 09/01/2020 04:59:00 PM EST [facility] Name Value Range Interpretation Code Description Data Sanjuana rce(s) Supporting Document(s) Neutrophils 91 % 40-74 Above high normal [facility] Band Neutrophils 7 % 0-10 Normal (applies to non-numeric results) [facility] Lymphocytes 0 % 19-[address] [facility] Atypical Lymphocytes 0 % 0-3 Normal (applies to non-num awa results) [facility] Monocytes 1 % 3-9 Below low normal [facility] Eosinophils 0 % 0-7 Normal (applies to non-numeric resu lts) [facility] Basophils 0 % 0-2 Normal (applies to non-numeric resul ts) [facility] Myelocytes 1 % 0-[address] [facility] Abs. Neutrophils 15.66 x1000/ul 1.92-8.31 Above high normal [facility] Abs. Lymphocytes 0.00 x1000/ul 1.20-3.70 Below low normal [facility] Abs. Monocytes 0.16 x1000/ul 0.14-0.97 Normal (applies to non-nu meric results) [facility] Abs. Eosinophils 0.00 x1000/ul 0.00-0.76 Normal (applies to non-numeric results) [facility] Abs. Basophils 0.00 x1000/ul 0.00-0.22 Normal (applies to non-nu meric results) [facility] Abs. Myelocytes 0.16 x1000/ul 0.00-0.00 Above high normal [facility] RBC Morphology \\Present [facility] Micro[facility]osis \\Slight [facility] Smudge Cells \\Present [facility] Platelet Estimate Automated platelet count confirmed by slide scan [facility] The above 18 analytes were performed by [facility]'s [id number], ,[place] [address] ID Date Data Source [id number] 09/01/2020 04:59:00 PM EST [facility] Name Value Range Interpretation Code Description Data Sanjuana rce(s) Supporting Document(s) WBC 15.98 x1000/ul 4.80-10.00 Above high normal [facility] RBC 4.00 x1Mil/ul 4.70-6.10 Below low normal [facility] Hemoglobin 9.9 g/dl 14.0-18.0 Below low normal [facility] Hematocrit 33.8 % 42.0-52.0 Below low normal [facility] MCV 84.5 fL 80.0-94.0 Normal (applies to non-numeric resul ts) [facility] MCH 24.8 pg 27.0-31.0 Below low normal [facility] MCHC 29.3 g/dl 32.2-37.0 Below low normal [facility] RDW 18.7 % 11.5-14.5 Above high normal [facility] Platelet Count 122 x1000/ul 130-400 Below low normal [facility] System MPV 10.3 fL 9.4-12.4 Normal (applies to non-numeric resul ts) [facility] Nucleated RBCs 0.00 % 0.00-0.20 Normal (applies to non-numeric r esults) [facility] Abs. Nucleated RBCs 0.00 x1000/ul 0.00-0.02 Normal (appl ies to non-numeric results) [facility] The above 12 analytes were performed by [facility]'s [id number], ,[place] [address] ID Date Data Source [id number] 09/01/2020 04:15:00 PM EST [facility] Name Value Range Interpretation Code Description Data Sanjuana rce(s) Supporting Document(s) Blood Urea Nitrogen 27 mg/dl 7-18 Above high normal [facility] Creatinine 0.84 mg/dl 0.67-1.17 Normal (applies to non-numeric resul ts) [facility] N-Acetylcysteine (NAC) and Metamizole villanueva ve the potential to falselydepress Creatinine results. Baseline values before medication adminstration are recommended. Patients undergoing treatment with phenindione will have falselydepressed results. Patients on phenindione therapy should be tested with an alternativeCREA method.Toxic levels of acetaminophen may lead to falsely depressed results forpatient samples. Glomerular Filtration Rate >90.00 mL/min/1.73m2 [facility] GFR Reference Ranges:Normal Function or Mild Renal Disease,if clinically at risk:>or= 60Moderately decreased:30 - 59Severely decreased:15 - 29Renal Failure:<15 Please note that the MDRD equation requires an additional adjustment forAfrican-Americans (multiply the GFR result by 1.210).Glomarular Filtration Rate (GFR) is estimated based on the MDRDequation, which assumes a steady state for creatinine (Yany Int Med 139/2 137-149, 2003), as recommended by the Nationaldney Disease Education Program in conjunction with the National Institutes of Health and the National KidneyFoundation. The Oxford method used in calculating this result is traceable to IDMS standards. Glucose 290 mg/dl 70-110 Above high normal [facility] Sulfasalazine has the potential to false ly depress Glucose results. Sulfapyridine has the potential to falsely elevate Glucose results. Baseline values before medication administration are recommended. Calcium 8.6 mg/dl 8.5-10.1 Normal (applies to non-numeric resul ts) [facility] Sodium 138 mEq/L 136-145 Normal (applies to non-numeric resul ts) [facility] Potassium 5.1 mEq/L 3.5-5.1 Normal (applies to non-numeric resul ts) [facility] Chloride 103.0 mEq/L 98.0-107.0 Normal (applies to non-numeric resu lts) [facility] Anion Gap 11.3 [facility] Carbon Dioxide 28.8 mMol/L 21.0-32.0 Normal (applies to non-numeric results) [facility] The above 10 analytes were performed [facility] [id number] [address],[facility] [id number],[place] [address] ID Date Data Source [id number] 09/01/2020 03:07:48 PM EST [facility] Name Value Range Interpretation Code Description Data Sanjuana rce(s) Supporting Document(s) Nursing Note [facility] NQQQEm6hMgIZPeOm39/SUXclDIAew6CrFXoiJHx5TIunFDUeB1FlJCN1yU0oIWD6UFtCZlXpHuShUkG1 [facility] [file] YmWbFTBsDX4iWDWEWw7+KGezbTXplEcnVPFOZbl9FkHBBbWpKF5VGZo= ID Date Data Source [id number] 09/01/2020 03:07:28 PM EST [facility] Name Value Range Interpretation Code Description Data Sanjuana rce(s) Supporting Document(s) Consults [facility] TNFQAx0fGxVADtLc30/OHPkwTNFpr3SmWTmjLGf9OMyhCCAdY5NiYAF1nG5jBSB9OPyOCxSsLzAdKlJ3 lbm [file] AgICAgICAgICAgICAgICAgICAgICAgICAgICAgICAgICAgICAgICAgICAgICAgICAgICAgICAgICAgIC AgICANCiAgICAgICAgICAgICAgICAgICAgICAgICAg ICAgICAgICAgICAgICAgICAgICAgICAgICAgICAgICAgICAgICAgICAgICAgICAgICAgICAgICAgICAg ICAgICAgICAgICAgICANCiAgICAgICAgICAgICAgICAgICAgICAgICAgICAgICAgICAgICAgICAgICAg ICAgICAgICAgICAgICAgICAgICAgICAgICAgICAgIC AgICAgICAgICAgICAgICAgICAgICAgICANCiAgICAgICAgICAgICAgICAgICAgICAgICAgICAgICAgIC AgICAgICAgICAgICAgICAgICAgICAgICAgICAgICAgICAgICAgICAgICAgICAgICAgICAgICAgICAgIC AgICAgICANCiAgICAgICAgICAgICAgICAgICAgICAg ICAgICAgICAgICAgICAgICAgICAgICAgICAgICAgICAgICAgICAgICAgICAgICAgICAgICAgICAgICAg ICAgICAgICAgICAgICAgICANCiAgICAgICAgICAgICAgICAgICAgICAgICAgICAgICAgICAgICAgICAg ICAgICAgICAgICAgICAgICAgICAgICAgICAgICAgIC AgICAgICAgICAgICAgICAgICAgICAgICAgICANCiAgICAgICAgICAgICAgICAgICAgICAgICAgICAgIC AgICAgICAgICAgICAgICAgICAgICAgICAgICAgICAgICAgICAgICAgICAgICAgICAgICAgICAgICAgIC AgICAgICAgICANCiAgICAgICAgICAgICAgICAgICAg ICAgICAgICAgICAgICAgICAgICAgICAgICAgICAgICAgICAgICAgICAgICAgICAgICAgICAgICAgICAg ICAgICAgICAgICAgICAgICAgICANCiAgICAgICAgICAgICAgICAgICAgICAgICAgICAgICAgICAgICAg ICAgICAgICAgICAgICAgICAgICAgICAgICAgICAgIC AgICAgICAgICAgICAgICAgICAgICAgICAgICAgICANCiAgICAgICAgICAgICAgICAgICAgICAgICAgIC AgICAgICAgICAgICAgICAgICAgICAgICAgICAgICAgICAgICAgICAgICAgICAgICAgICAgICAgICAgIC AgICAgICAgICAgICANCjw/pLEuK9gqhYKfxdC4O1rw Ui4JBp2IXH3kn3GuVHVbEMdupeUxPfwYZnItRGTcAvvXCue0OHjqWB0JgWElO1PzP4DnKCdaFE9HTWJe WFOowTHpGDKmIGFkYkU4TPRqJEgqLE6LqYNmJKkiDREwLNOpNtBlIQWxKMQyBFYhHX9RGYLeB429ruIw Qb1GKt5QPsEcPQ5kxb5REtOiGACrZxlFFho0SPohXW 5TqBOyxYRzHzGuRENZDjRaO6keu0IaViEcYWVLGXyzNX8Fr1GnoTQqJZd+Hw6GKN7xv3AiEDbwQeYdUK 4bzj3BCVqSPnMrF8XukRagBCGaklS0dQApHIY4VP4vnYjtwVJSYT6csCIzb7w0VPcpGMGHHBRakDOsOa Z3LjZwUnVyUTK5MFAjEX5qFDshTD6MBON1EBrmIIUw DBXlP9dADkEdFHgrNVOjvGxjWD1SEjUeG8PwnvFpcPPiHLVlEVGYCk4+KSgcjvTwYoaUZeB4ZMGzk5Gi EAs8CQ4VIRRfMTnnVJ4KDVGzyG9nGHqbNF1WIcLrZfQsJGDXGwEoH80ghNAnKXi6Y7HlMwRiFINlQdmu ZXMgPDwvTmFtZXMgWyBdDQogID4+ID4+HXwvOV3RBH xmhaOrQWDoKz6EATJnPGJfHL7zCQSvVLQiJ5Q6tTmrSUKTXaQwG6nrlctbAT3tIVCjY516uFdchiUzXN K8IYChJm3JWLNmYXI9TVVsyCWsKyVmOFGYNMurQR5FgGMwPTA8bP6nDWabNHXrJRAtS8iMLvQtpRlhZR 51bGwgbnVsbCBdDQo+Gy6QFM8hk8GtLQw9dlOaOXba CJC5DSqaDWTiQVOgAYHeWXY1TFD9APWSAkRnVYKnYBEyZQvmKBPmBPCepe7XGPRbFPTtIAH6FjLsJWFm ISNuIOraZQPqERUjTCY5UWTsJLBlIH8LVcElHJRuXDKmNZnnUXBbVNKerq6MYFPwYTUeLjD1WvMrCFIy BUOmACveRPLwYNRlFMTiEPPkKYAqHQ2MNmYfDSJqFM ntWHByKLOjHHWqlg2EPUAkOOHpUvZ6FQMqTUGmWBNvMEztFCNqPCD4LqVtRPVyXTBmIH5DZjCeOJZmCI j4CfRpUWXsPQYkmb9ICSDqVEAxOFEvHJZcOSOuQCOhOKdiURPwQMZbRyJ6GOKnDUHtBE3MRrVgTAWjPJ U6YMOsBNDeEUVgsd0SGURlCBMoSQd4XSRfYCKyKRTy VImgJXFeVZSrSEncVSTgHNLmEI5PLsStVZQsYETpFGToSSCzTTHaot7RMNNhWYFkKOYfWUXaVLDdSLIi RXkaOFOrLTO0BOKtWCOpCZYxNT4JYzLiCPBnZyPmZjqjDBHfDZRuzs3NGAIrXIKpPYT6PPDaGNTyBGGu NJcyNRZbYDQ6WOE1ZEWpKATaGC9KWbXqCVEyZvScFM wkHFSnORLupa5RGPSxHUTmPuG0KsMqLCOlVFYdFZdiUZJkFVI9SiT3DJAoVKGtDY4NCzGdAQSdWod2RG ssGPUfDUCfnu7UXTMtPKEzAkm3IuSzHHKnQRGpIIzgMVUwOJV2IXT4RNFaDAQeTV9UJvJaMAQoMey1DX ikJDRsLGMouu9PYIOnABZmKYY9ZXIhUSRtIBWuDIkn EZJkUSK2XbH5YRJtKIYbMI9VRrApUNYmZiDpCrcqPLXqLKQkzm4JGODjUKPwDRB4CQAuJMOsTFXhQWap IUMpBEPoHtTbXKSiHLCsCS7JGhFtFYYvIjSgWLIaJGIcFFSmbz8BMKHhKRJdFxU1WwAhJMVvLBVbEGxg CBYdTMVfYtI5NBIzKBHvLV0XUwEcPSGmQzV5VmReYV TcLRPeip5RcERnbJmtlr0VJZrXEj0CtJmkCDY4UAlhWy3xtGSeVlHcVXUQGi7XkxQjPXIrVODWKAfnNW XwQNU9OOasO2TuMuFlOOElHlWvHeBzYQGyAKS8EmIvUYUfBvT8XHq1GFCzBFCgVEDdJTN1QZYiGMOnCt ExNTkyZGVhMTA+GY1aWOo+Mk4Qq6LnkmD5frQzLWktUdOqDS2VRDXCX1LHBe== ID Date Data Source [id number] 09/01/2020 02:54:35 PM [facility] Patient: DIANA OLIVERA : 1955 [facility]ACS [facility]: [facility] 1 VIEW Provider: PROMISE LOPEZINICAL HISTORY: Endotracheal tube placement.TECHNIQUE: An AP portable view of the chest was obtained.COMPARISON: No relevant prior studies are available for comparison.FINDINGS: Lines/tubes: Endotracheal tube 5.3 cm above the pooja. A Flexiflo tube withtip in stomach below the left hemidiaphragm. EKG leads overlie the chest.Lungs: Severe bilateral interstitial and airspace disease, right greater thanleft, consistent with the patient's history of Covid 19 pneumonia.Heart and mediastinum: The heart and mediastinal contours are unremarkable.Pleura: No pleural effusion or pneumothorax seen.Bones: The visualized bones are unremarkable.Abdomen: Visualized portions of the upper abdomen are unremarkable.IMPRESSION: Endotracheal tube 5 cm above the pooja.Nasogastric tube with tip in the stomach.Severe diffuse interstitial and airspace disease, right greater than left.Electronically Signed by Arvind Neri MD 09/01/2020 2:54 PM Name Value Range Interpretation Code Description Data Sanjuana rce(s) Supporting Document(s) ID Date Data Source [id number] 09/01/2020 03:12:00 PM EST [facility] Name Value Range Interpretation Code Description Data Sanjuana rce(s) Supporting Document(s) POC SARS-CoV-2 POSITIVE NEGATIVE Very abnormal (applies to non-nu meric units [facility] Performed on the Orellana ID NOW analyzer by rapid molecular methodology. Called To (First Last): ROSALEE Snell/Accreditation of Person Called: RNLocation Called: ICU BED 14Critical Tests and Results Called: COV POSAdditional Tests that were Called: NORead Back (Y/N): YESDate: 09/01/2020Time: 3:12PMPMBy: IAN MANNING First Test No [facility] Employed in healthcare No [facility] Symptomatic as defined by CDC No [facility] Hospitalized Yes [facility] Resident in a congregate care setting Yes [facility] No [facility] Intensive Care Yes [facility] The above 8 analytes were performed by [facility] [id number] [place] [address], ,[place] [address] ID Date Data Source [id number] 09/01/2020 02:51:00 PM [facility] Name Value Range Interpretation Code Description Data Sanjuana rce(s) Supporting Document(s) POC Influenza A, RNA NEGATIVE NEGATIVE Normal (applies to n on-numeric results) [facility] Performed on the Orellana ID NOW analyzer by rapid molecular methodology. POC Influenza B, RNA NEGATIVE NEGATIVE Normal (applies to n on-numeric results) [facility] Performed on the Orellana ID NOW analyzer by rapid molecular methodology. The above 2 analytes were performed by [facility] [id number] [place] [address], ,[place] [address] ID Date Data Source [id number] 09/01/2020 04:43:00 PM EST [facility] Name Value Range Interpretation Code Description Data Sanjuana rce(s) Supporting Document(s) Triglycerides 89 mg/dl 30-200 Normal (applies to non-numeric re sults) [facility] N-Acetylcysteine (NAC) and Metamizole villanueva ve the potential to falselydepress Triglyceride results. Baseline values before medication adminstration are recommended.The above 1 analytes were performed by [facility] [id number], ,[place] [address] ID Date Data Source [id number] 09/07/2020 09:52:00 AM [facility] Name Value Range Interpretation Code Description Data Sanjuana rce(s) Supporting Document(s) Culture Result No Growth After 5 Days [facility] The above 1 analytes were performed by [facility] [id number], ,[place] [address] ID Date Data Source [id number] 09/07/2020 09:52:00 AM [facility] Name Value Range Interpretation Code Description Data Sanjuana rce(s) Supporting Document(s) Culture Result No Growth After 5 Days [facility] The above 1 analytes were performed by [facility] [id number], ,[place] [address] ID Date Data Source [id number] 09/01/2020 03:52:00 PM [facility] Name Value Range Interpretation Code Description Data Sanjuana rce(s) Supporting Document(s) pH, iSTAT 7.245 7.380-7.[address] [facility] PCO2, iSTAT 69.8 mm Hg 32.0-46.0 Above upper panic limits [facility] PO2, iSTAT 259.0 mm Hg 74.0-108.0 Above high normal [facility] TCO2, iSTAT 32.0 mMol/L 22.0-30.0 Above high normal [facility] HCO3, iSTAT 30.2 mMol/L 21.0-29.0 Above high normal [facility] BE, iSTAT 3.0 mMol/L -2.0-2.[address] [facility] SO2, iSTAT 100.0 % 92.0-96.[address] [facility] Lactate, iSTAT 1.0 mMol/L 0.4-2.0 Normal (applies to non-numeric r esults) [facility] Site R Radial [facility] Mode AC [facility] Delsys Ventilator [facility] [place] 500 [facility] RR(set) 12 [facility] PEEP 5 [facility] RR(total) 12 [facility] FiO2 100 [facility] Site Benign Yes [facility] The above 17 analytes were performed by [facility] [id number] [place] [address],[facility] Rapid[facility]#: [id number],[place] [address] ID Date Data Source [id number] 09/04/2020 07:59:00 AM EST [facility] 1+ WBCs1+ Epithelial Cells1+ Gram Positi ve Cocci in clustersStaphylococcus aureus [facility] Name Value Range Interpretation Code Description Data Sanjuana rce(s) Supporting Document(s) ID Date Data Source [id number] 09/04/2020 07:59:00 AM EST [facility] 1+ WBCs1+ Epithelial Cells1+ Gram Positi ve Cocci in clustersStaphylococcus aureus [facility] Name Value Range Interpretation Code Description Data Sanjuana rce(s) Supporting Document(s) AMOXICILLIN Results entered -- not verified [facility] AMOXICILLIN/CLAVULANIC ACID Results entered -- not verified [facility] AMPICILLIN/SULBACTAM Results entered -- not mauricio ified [facility] AZITHROMYCIN Results entered -- not verified [facility] CEFAZOLIN Results entered -- not verified [facility] CLINDAMYCIN Results entered -- not verified [facility] ERYTHROMYCIN Results entered -- not verified [facility] GENTAMICIN Susceptible. Indicates for microbiol ogy susceptibilities only. [facility] LEVOFLOXACIN Results entered -- not verified [facility] LINEZOLID Susceptible. Indicates for microbiol ogy susceptibilities only. [facility] OXACILLIN Results entered -- not verified [facility] RIFAMPIN Susceptible. Indicates for microbiol ogy susceptibilities only. [facility] TETRACYCLINE Results entered -- not verified [facility] TRIMETHOPRIM/SULFA Susceptible. Indicates for microbiology susceptibilities only. [facility] VANCOMYCIN Susceptible. Indicates for microbiol ogy susceptibilities only. [facility] The above 20 analytes were performed by [facility] [id number], ,[place] [address] ID Date Data Source [id number] 09/01/2020 02:35:00 PM EST [facility] Name Value Range Interpretation Code Description Data Sanjuana rce(s) Supporting Document(s) Urine Color Yellow Light-Yellow,Yellow Normal (applies to no n-numeric results) [facility] Urine Appearance CLEAR CLEAR Normal (applies to non-numeric results) [facility] Urine Specific [place] 1.019 1.015-1.025 Normal (a pplies to non-numeric results) [facility] Urine pH 5.5 5.0-7.0 Normal (applies to non-numeric resul ts) [facility] Urine Protein 1+ NEG Abnormal (applies to non-numeric results) [facility] Urine Glucose 2+ NEG Abnormal (applies to non-numeric results) [facility] Urine Ketone 1+ NEG Abnormal (applies to non-numeric r esults) [facility] Urine Bilirubin NEG NEG Normal (applies to non-numeric results) [facility] Urine Blood NEG NEG Normal (applies to non-numeric resu lts) [facility] Urine Urobilinogen NORM <0.2,1.0,<2.0,0.2 Abnormal (a pplies to non-numeric results) [facility] Urine Leukocyte Esterase NEG NEG Normal (applies to non -numeric results) [facility] Urine Nitrite NEG NEG Normal (applies to non-numeric re sults) [facility] Urine WBC 3 /hpf 0-2 Above high normal [facility] Urine RBC 11 /hpf 0-2 Above high normal [facility] Mucous SLIGHT /lpf NEG,[none] Abnormal (applies to non-numeric re sults) [facility] Granular Cast 4 /lpf 0-[address] [facility] The above 16 analytes were performed by [facility] [id number], ,[place] [address] ID Date Data Source [id number] 09/01/2020 01:35:00 PM EST [facility] Name Value Range Interpretation Code Description Data Sanjuana rce(s) Supporting Document(s) Glucose, Fingerstick 256 mg/dl 70-110 Above high normal [facility] The above 1 analytes were performed by [facility] [id number] [facility], ,[place] [address] ID Date Data Source [id number] 09/01/2020 09:34:00 AM [facility] [address] [place] [address] PHONE: [phone] FAX: [phone] Name .................. : JAROD Ross Acct Number.................. : [id number] ROOM. ................. : 108-1 MR Number ................... : [id number] Stay type ............. : I/P Discharge Date......... ... : Admit Date ......... : 08/31/20 Admit Phys .................... : VANESA Date of ....... : 1955 Family Phys ................... : ADY Phone .................. : [phone] Age ................................ : 65 Film# .................. .:[id number] Sex ................................. : M Unsigned transcriptions are preliminary reports and do not represent a medical or legal document CHEST PORTABLE [id number] COMPLETE:08/31/20 09:48 4355 Reason(s): Shortness of Breath PORTABLE CHEST, 08/31/20: INDICATION: Shortness of breath. Comparison is made to a prior study from 08/10/2020. FINDINGS: Bilateral infiltrates are identified which are mildly improved as compared to the previous examination. The cardiac silhouette has not significantly changed. Degenerative and post- surgical changes are present in the spine. IMPRESSION: Bilateral infiltrates are mildly improved. Examination dictated by PRAFUL Griffin. Examination was reviewed with Mahamed Machado MD, radiologist at the time of this dictation. Electronically Reviewed and Signed By Mahamed Machado MD , 09/01/20 09:34, AML Transcribe Initials: SSR, Transcribe Date: 08/31/20 13:12, Dictation Date: Copy for: 002 [facility] Copy for: 710 [facility] Page 1 of 1 Name Value Range Interpretation Code Description Data Sanjuaan rce(s) Supporting Document(s) ID Date Data Source [id number] 09/01/2020 10:20:00 AM EST [facility] Name Value Range Interpretation Code Description Data Sanjuana rce(s) Supporting Document(s) FiO2 70% FIO2 [facility] SITE BRACHIAL LT [facility] pH of Arterial blood 7.24 7.34 - 7.44 L [facility] Carbon dioxide [Partial pressure] in Blood 67.5 mm/HG 35.0 - 45.0 H [facility] Oxygen [Partial pressure] in Blood 81.0 mm/HG 75.0 - 100 [facility] Bicarbonate [Moles/volume] in Blood 28.5 meq/L 22.0 - 26.0 H [facility] TCO2 30.5 meq/L 23.0 - 27.0 H [facility] Base excess in Blood by calculation 0.1 -2.0 - 2.0 [facility] O2 SAT 93.3 % 95.0 - 98.0 L [facility] ital ID Date Data Source [id number] 09/01/2020 09:38:00 AM EST [facility] [address] [place] [address] PHONE: [phone] FAX: [phone] Name .................. : JAROD Ross Acct Number.................. : [id number] ROOM. ................. : CCU1 Number ................... : [id number] Stay type ............. : I/P Discharge Date......... ... : Admit Date ......... : 08/31/20 Admit Phys .................... : VANESA Date of ....... : 1955 Family Phys ................... : ADY Phone .................. : [phone] Age ................................ : 65 Film# .................. .:[id number] Sex ................................. : M Unsigned transcriptions are preliminary reports and do not represent a medical or legal document CHEST PORTABLE [id number] COMPLETE:09/01/20 06:59 RLB 4418 (REASON FOR CHEST: DYSPNEA PORTABLE CHEST, 09/01/20: Prior examination 08/31/20. FINDINGS: Again is seen and slightly worsening is bilateral pneumonia, right greater than left. There is underlying pulmonary vascular congestion. There is otherwise no significant change. IMPRESSION: Slight worsening bilateral pneumonia, right greater than left. Mild underlying pulmonary vascular congestion. Electronically Reviewed and Signed By Mahamed Machado MD , 09/01/20 09:38, AML Transcribe Initials: SSR, Transcribe Date: 09/01/20 07:50, Dictation Date: Copy for: 002 [facility] Copy for: [address] [facility] Page 1 of 1 Name Value Range Interpretation Code Description Data Sanjuana rce(s) Supporting Document(s) ID Date Data Source [id number] 09/01/2020 10:40:00 AM [facility] Name Value Range Interpretation Code Description Data Sanjuana rce(s) Supporting Document(s) TROPONIN T <0.01 NG/ML 0.00 - 0.10 [facility] TROPONIN T0.1 ng/ml Recommended as the c linical threshold value forTroponin T. ID Date Data Source [id number] 09/01/2020 10:33:00 AM [facility] Name Value Range Interpretation Code Description Data Sanjuana rce(s) Supporting Document(s) BNP 858 PG/ML 0 - 125 H [facility] ID Date Data Source [id number] 09/01/2020 09:29:00 AM [facility] Name Value Range Interpretation Code Description Data Sanjuana rce(s) Supporting Document(s) Lactate [Moles/volume] in Serum or Plasma 1.6 MMOL/L 0.2 - 2.2 [facility] ID Date Data Source [id number] 09/01/2020 06:54:00 AM [facility] Name Value Range Interpretation Code Description Data Sanjuana rce(s) Supporting Document(s) FiO2 50% VM [facility] SITE BRACHIAL LT [facility] ital pH of Arterial blood 7.25 7.34 - 7.44 L [facility] Carbon dioxide [Partial pressure] in Blood 68.5 mm/HG 35.0 - 45.0 H [facility] Oxygen [Partial pressure] in Blood 59.5 mm/HG 75.0 - 100 L [facility] Bicarbonate [Moles/volume] in Blood 29.5 meq/L 22.0 - 26.0 H [facility] TCO2 31.6 meq/L 23.0 - 27.0 H [facility] Base excess in Blood by calculation 1.1 -2.0 - 2.0 [facility] O2 SAT 85.6 % 95.0 - 98.0 L [facility] ital ID Date Data Source [id number] 09/01/2020 07:26:00 AM EST [facility] Name Value Range Interpretation Code Description Data Sanjuana rce(s) Supporting Document(s) CBC W/AUTOMATED DIFF [facility] COMPLETE BLOOD COUNT Leukocytes [#/volume] in Blood by Automated count 14.1 10^3/uL 4.2 - 11.0 H [facility] Erythrocytes [#/volume] in Blood by Automated count 4.61 10^6/uL 4. 50 - 6.30 [facility] Hemoglobin [Mass/volume] in Blood 11.5 g/dL 14.0 - 16.0 L [facility] Hematocrit [Volume Fraction] of Blood by Automated count 38.8 % 4 1.0 - 51.0 L [facility] Erythrocyte mean corpuscular volume [Entitic volume] by Auto mated count 84.2 fL 80.0 - 94.0 [facility] Erythrocyte mean corpuscular hemoglobin [Entitic mass] by Automated count 24.9 pg 27.0 - 34.0 L [facility] Erythrocyte mean corpuscular hemoglobin concentration [Mass/volume] by Automated count 29.6 g/dL 31.0 - 36.0 L [facility] Erythrocyte distribution width [Ratio] by Automated count 19.0 % 11.5 - 14.8 H [facility] Platelets [#/volume] in Blood by Automated count 115 10^3/uL 150 - 45 0 L [facility] Platelet mean volume [Entitic volume] in Blood by Automated count 10.5 fL 7.4 - 10.4 H [facility] Neutrophils/100 leukocytes in Blood by Automated count 89.5 % 37. 0 - 80.0 H [facility] Lymphocytes/100 leukocytes in Blood by Manual count 3.0 % 25.0 - 40.0 L [facility] Monocytes/100 leukocytes in Blood by Automated count 6.1 % 3.0 - 8.0 [facility] Eosinophils/100 leukocytes in Blood by Automated count 0.1 % 0.0 - 7.0 [facility] Basophils/100 leukocytes in Blood by Automated count 0.3 % 0.0 - 2.0 [facility] %IG 1.0 % 0.0 - 0.0 [facility]NR[facility] 0.0 % 0.0 - 0.0 [facility] Neutrophils [#/volume] in Blood by Automated count 12.58 10^3/uL 2. 00 - 6.90 H [facility] Lymphocytes [#/volume] in Blood by Automated count 0.42 10^3/uL 0.60 - 3.40 L [facility] Monocytes [#/volume] in Blood by Automated count 0.86 10^3/uL 0.00 - 0.90 [facility] Eosinophils [#/volume] in Blood by Automated count 0.02 10^3/uL 0.00 - 0.70 [facility] Basophils [#/volume] in Blood by Automated count 0.04 10^3/uL 0.00 - 0.20 [facility] #IG 0.14 10^3/uL 0.00 - 0.10 H [facility] #NRBC 0.00 10^3/uL 0.00 - 0.00 [facility] ospital MANUAL DIFF NOT INDICATED [facility] RBC MORPH SEE BELOW [facility] Poikilocytosis [Presence] in Blood by Light microscopy 1+ NOR MAL: NONE SEEN A [facility] { SICKLE CELL (NORMAL: NONE SEEN ) Platelet adequacy [Presence] in Blood by Light microscopy CL UMPED NORMAL: NORMAL [facility] OCC PLATELET CLUMPS COMMENT: ID Date Data Source [id number] 09/01/2020 06:56:00 AM EST [facility] Name Value Range Interpretation Code Description Data Sanjuana rce(s) Supporting Document(s) BASIC METABOLIC PANEL [facility] CORRECTE D REPORT BASIC METABOLIC PANEL Sodium [Moles/volume] in Serum or Plasma 135 mEq/L 134 - 153 [facility] Potassium [Moles/volume] in Serum or Plasma 5.2 mEq/L 3.6 - 5.0 H [facility] SLIGHTLY HEMOLYZED Chloride [Moles/volume] in Serum or Plasma 99 mEq/L 98 - 107 [facility] Carbon dioxide, total [Moles/volume] in Serum or Plasma 28 MEQ/L 22 - 30 [facility] Glucose [Mass/volume] in Serum or Plasma 216 MG/DL 70 - 99 H [facility] BUN 23 MG/DL 7 - 21 [facility] Creatinine [Mass/volume] in Serum or Plasma 0.8 MG/DL 0.7 - 1.5 [facility] BUN/CREAT 29 8 - 27 [facility] Calcium [Mass/volume] in Serum or Plasma 9.0 MG/DL 8.4 - 10.2 [facility] Anion gap 3 in Serum or Plasma 8.0 mmol/L 8.0 - 16.0 [facility] AGE 65 yrs [facility] AFR AMER GFR 125 mL/min [facility] NON-AA GFR 103 mL/min [facility] Male GFR Inter prentation 20-49 yrs >60 mL/min Normal 50-59 yrs >56 mL/min Normal 60-69 yrs >49 mL/min Normal 70-79yrs >42 mL/min Normal 80 and above >35 mL/min Normal Female GFR Interpretation 20-39 yrs >60 mL/min Normal 40-49 yrs >58 mL/min Normal 50-59 yrs >51 mL/min Normal 60-69 yrs >45 mL/min Normal 70-79 yrs >39 mL/min Normal 80 and above >32 mL/min Normal FOLLOWING RESULTS REPORTED IN ERROR AFR AMER GFR > NON-AA GFR >{ CORRECT YES{ CORRECT ID Date Data Source [id number] 09/01/2020 06:55:00 AM [facility] Name Value Range Interpretation Code Description Data Sanjuana rce(s) Supporting Document(s) Magnesium [Mass/volume] in Serum or Plasma 1.5 MG/DL 1.7 - 2.2 L [facility] ID Date Data Source [id number] 08/31/2020 10:30:[address] [facility] [address] [facility] [facility] [address] RESPIRATORY CARE REPORT ==== ---------NAME------- NUMBER SEX AGE ADMIT DISC. XRAY# F/C CARLTON Ross [id number] M 65 08/31/20 [id number] M4 I/P DATE OF : 1955 M/R# [id number] #: [phone] LOCATION: EMERGENCY DEPT EKG [id number] COMP LETE:08/31/20 10:37 [place] [id number] PHYSICIAN: VANESA ACUNA Name Value Range Interpretation Code Description Data Sanjuana rce(s) Supporting Document(s) ID Date Data Source [id number] 08/31/2020 09:33:00 AM EST [facility] 1 OrderSheet [facility] Emergency Department [address] [place] [address] Phone #: ext- [phone] 08/31/2020 09:32 Patient: DIANA OLIVERA Sex: M : 1955 Age: 65yWEIGHT:80.7 kg (M) HEIGHT:72 inches (S) BMI:24.2ALLERGIES: No Known Drug AllergyCHIEF COMPLAINT: vomiting, nauseaDIAGNOSIS: Asthenia, VomitingLAB ORDERSOrder Description Priority Entered Acknowledged InitialedCBC w Diff STAT 09:48 08/31/2020 09:59 Miriam Cole Riccardo Lisa RN M.D.;CMP STAT 09:48 08/31/2020 09:59 Miriam Cole Riccardo Lisa RN M.D.;Lipase STAT 09:48 08/31/2020 09:59 Miriam Cole Riccardo Lisa RN M.D.;PT/PTT STAT 09:48 08/31/2020 09:59 Miriam Cole Riccardo Lisa RN M.D.;Troponin-T STAT 09:48 08/31/2020 09:59 Miriam Cole Riccardo Lisa RN M.D.;Magnesium STAT 09:48 08/31/2020 10:00 Miriam Cole Riccardo Lisa RN M.D.;Urinalysis (Cath STAT 09:48 08/31/2020 10:42 Christopher,Spec) Rigo Ge R.N., M.D.;BNP STAT 09:48 08/31/2020 10:00 Miriam Cole Riccardo Lisa RN M.D.;Lactic Acid STAT 09:48 08/31/2020 10:00 Miriam Cole Riccardo Lisa RN M.D.;Blood Culture STAT 09:48 08/31/2020 10:00 Kelsey,q10m X2 (Rigo Sewell RN09:48 08/31/2020) Geraldine;Blood Culture STAT 09:48 08/31/2020 10:00 Kelsey, 2 OrderSheet [facility] Emergency Department [address] [place] [address] Phone #: ext- [phone] 08/31/2020 09:32 Patient: DIANA OLIVERA Sex: M : 1955 Age: 63fp53x X2 (Sched Rigo Ge RN09:58 08/31/2020) Geraldine;COVID-19 CAH STAT 09:49 08/31/2020 10:06 Christopher,(Symptomatic as Rigo Ge R.N.Defined by CDC) Geraldine;(08/31/2020) (NotFirst Test) (NotHospitalized) (Not)(Resident inCongregate CareSetting) (NotEmployed inHealthcare Setting)DIAGNOSTIC STUDY ORDERSOrder Description Priority Entered Acknowledged InitialedChest Portable 1 STAT 09:48 08/31/2020 09:59 Antoinette Cole (Oxygen? Rigo Ge RN(Yes)) Geraldine; Reason for Study: Shortness of BreathMEDICATION/IV/DRIP/FLUID ORDERSOrder Description Priority Entered Acknowledged InitialedNS IV : Bolus 250 09:48 08/31/2020 10:42 Christopher,mL, then 100 mL/hr Rigo Ge R.N. MElizabethDElizabeth;Zofran 4 mg IVP X 1 09:51 08/31/2020 10:42 Christopher,dose: 4 mg (NOW Miriam, Rigo Infante R.N.x1) Geraldine;Doxycycline PO 11:59 08/31/2020 12:10 Christopher,100 mg Rigo Ge R.NElizabeth MElizabethDElizabeth; Reason for ordering with alerts: Clinical consideration given -- 11:59 08/31/2020 Rigo Ge M.D.GENERAL ORDERSOrder Description Priority Entered Acknowledged InitialedBlood Pressure 09:48 08/31/2020 09:59 Kelsey,Monitor Rigo Ge RN, M.D.;Manager Pharmacy 09:48 08/31/2020 09:59 Kelsey,(continuous) Rigo Ge RN 3 OrderSheet [facility] Emergency Department [address] [place] [address] Phone #: ext- [phone] 08/31/2020 09:32 Patient: DIANA OLIVERA Sex: M : 1955 Age: 65y M.D.;EKG 09:48 08/31/2020 09:59 Miriam Cole Riccardo Lisa RN M.D.;NPO 09:48 08/31/2020 09:59 Miriam Cole Riccardo Lisa RN M.D.;Obtain Old EKG 09:48 08/31/2020 09:59 Miriam Cole Riccardo Lisa RN M.D.;Obtain Old Records 09:48 08/31/2020 09:59 Miriam Cole Riccardo Lisa RN M.D.;Oxygen (2 L/min) 09:48 08/31/2020 09:59 Kelsey(NC) (Titrate to O2 Rigo Geat >92%) Geraldine;Oxygen titrate to 09:48 08/31/2020 09:59 Kelsey,92% Rigo Ge RN, M.D.;Pulse oximeter 09:48 08/31/2020 09:59 Kelsey,(Continuous) Rigo Ge RN, M.D.;Saline Lock 09:48 08/31/2020 10:41 Miriam White Riccardo Rachel R.N. M.D.;Vitals 09:48 08/31/2020 09:59 Miriam Cole Riccardo Lisa RN M.D.;Straight Cath 09:48 08/31/2020 10:45 Miriam White Riccardo Rachel R.N. M.D.;Consult - 11:58 08/31/2020 12:11 Kelsey,Hospitalist Rigo Ge RN, M.D.;[Electronically signed by Arelis White R.N. (14:09 08/31/2020)][Electronically signed by Rigo eG M.D. (14:30 08/31/2020)][Electronically locked by Arelis White R.N. (14:09 08/31/2020)] Name Value Range Interpretation Code Description Data Sanjuana rce(s) Supporting Document(s) ID Date Data Source [id number] 08/31/2020 09:33:00 AM EST [facility] 1 Medication Reconciliation Report [facility] Emergency Department [address] [place] [address] Phone #: ext- [phone] 08/31/2020 09:32 Patient: DIANA OLIVERA Sex: M : 1955 Age: 65yWeight: 80.7 kgHeight/Length: 72 in.BMI: 24.2ALLERGIES: No Known Drug AllergyThe patient's Home Medications are listed below:THE FOLLOWING MEDICATIONS NEED TO BE RECONCILED: Amiodarone HCL Oral 200 mg, 2x a day amLODIPine Besylate Oral (10 mg) 1 tablet, daily Ascorbic Acid Oral (500 mg), 2x a day Aspirin Oral (81 mg) 1 tablet, 2x a day Baclofen Oral (10 mg) 1 tablet, 3x a day Bisacodyl Rectal (10 mg), prn Cholecalciferol Oral (25 MCG (1000 UT)), daily Colace Oral 100 mg, 3x a day, prn Doxycycline Hyclate Oral (100 mg), 2x a day DULoxetine HCl Oral (60 mg) 1 capsule, daily Eliquis Oral (2.5 mg) 1 tablet, 2x a day fentaNYL Transdermal 100 mcg/hr, every 3 days Ga bapentin Oral (600 mg) 1 tablet, 3x a day guaiFENesin ER Oral (600 mg), 2x a day HumaLOG Subcutaneous 2 Medication Reconciliation Report [facility] Emergency Department [address] [place] [address] Phone #: ext- [phone] 08/31/2020 09:32 Patient: DIANA OLIVERA Sex: M : 1955 Age: 65y Lactobacillus Oral, 3x a day Latanoprost Ophthalmic (0.005 %) 1 drop, at bedtime Levemir Subcutaneous 16u, 2x a day Lidocaine patch Metoprolol Succinate ER Oral (50 mg) 1 tablet, daily Milk of Magnesia Oral Multivitamins Oral Oscal 500/200 D-3 Oral, 2x a day oxyCODONE HCl Oral 5 mg, q6h, prn Pantoprazole Sodium Oral 40 mg, daily ProAir HFA Inhalation Senna Oral (8.6 mg) 1 capsule, 2x a day Serevent Diskus Inhalation (50 mcg/dose) 1 puff, 2x a day, after meals Toprol XL Oral 50 mg, daily Zinc Oral (220 (50 Zn) mg) 1 capsule, dailyThe source(s) of the original Home Medication information:patient's senior living recordThe following Medications were given to the patient in the Emergency Department:NS [IV] IV Fluids bolus 0, then 100 mL/hr, administered: 10:42 08/31/2020Zofran [IVP] IVP 4 mg, administered: 10:42 08/31/2020oxycycline [PO] PO 100 mg, administered: 12:10 08/31/2020The following Medications were prescribed to the patient:None. 3 Medication Reconciliation Report [facility] Emergency Department [address] [place] [address] Phone #: ext- [phone] 08/31/2020 09:32 Patient: DIANA OLIVERA Sex: M : 1955 Age: 65y Name Value Range Interpretation Code Description Data Sanjuana rce(s) Supporting Document(s) ID Date Data Source [id number] 08/31/2020 09:33:00 AM EST [facility] 1 Medication Administration Record [facility] Emergency Department [address] [place] [address] Phone #: ext- [phone] 08/31/2020 09:32 Patient: DIANA OLIVERA Sex: M : 1955 Age: 65yWeight: 80.7 kgHeight/Length: 72 inBMI: 24.2ALLERGIES: No Known Drug Allergy Date/Time Medication Administered Medication OrderedStart NS [IV] NS IV : Bolus 250 mL, then 19081:42 08/31/2020 Dose: IV Fluids mL/hrArelis White R.N. Rate: 100 mL/hr---- Dispensed: 250 mL bagContinued Upon Disposition Site: #1 right AC14:00 08/31/2020Arelis White R.N.Given ZOFRAN [IVP] (ONDANSETRON HCL) Zofran 4 mg IVP X 1 dose: 4 mg10:42 08/31/2020 Dose: 4 mg IVP (NOW x1)Arelis White R.N. Site: #1 right ACGiven DOXYCYCLINE [PO] Doxycycline PO 100 mg12:10 08/31/2020 Dose: 100 mg Arelis Rose R.N. Name Value Range Interpretation Code Description Data Sanjuana rce(s) Supporting Document(s) ID Date Data Source [id number] 08/31/2020 09:33:00 AM [place] [address] General Instructions [facility] Emergency Department [address] [place] [address] Phone #: ext- [phone] 08/31/2020 09:32 Patient: DIANA OLIVERA Sex: M : 1955 Age: 65yVomiting with nausea (resolved).Acute generalized weakness.S/P Covid-19 Pneumoniae (08-10-20).(Electronically signed by Rigo Ge M.D. 08/31/2020 14:30) Name Value Range Interpretation Code Description Data Sanjuana rce(s) Supporting Document(s) ID Date Data Source [id number] 08/31/2020 09:33:00 AM [place] [address] Clinical Report - Nurses [facility] Emergency Department [address] [place] [address] Phone #: ext- [phone] 08/31/2020 09:32 Patient: DIANA OLIVERA Sex: M : 1955 Age: 65yTRIAGE Arrived by EMS. Historian: EMS, senior living nurse and patient. ( presents from senior living with c/o not feeling well, nausea, vomiting, low BP, low sats, started yesterday and was suppose to get IV fluids, etc but didn't WBC count was 21,0000, Dr. Bliss called and spoke to MD). Triage time: 09:33 08/31/2020. Acuity: LEVEL 3. Chief Complaint: (nausea, vomiting, low BP, low sats). ABNORMAL LAB (elevated WBC). Alert. No acute distress. This started yesterday. Treatment RETAIL PHARMACIST: None. SEPSIS SCREEN: SIRS SCREEN POSITIVE: WBC greater than 12,000. SEPSIS SCREEN NEGATIVE. No suspected or confirmed signs of infection present. --09:40 08/31/20 Rachael Cole RN 09:33 08/31/20. BP: 110/83 taken on the right arm, manually. MAP: 92. HR: 72. RR: 14. O2 saturation: 100% on nasal cannula at 2 liters/minute. Temp: 98.3 F. Pain level now: 12/24. --09:40 08/31/20 Rachael Cole RN. Weight: 80.7 kg measured. Height/Length: 72 inches Per Patient. BMI: 24.2. --09:38 08/31/20 Rachael Cole RN. Medications Serevent Diskus Inhalation (Aerosol Powder Breath Activated 50 mcg/dose) 1 puff, 2x a day after meals. --09:50 08/31/20 Rachael Cole, ERICA Amiodarone HCL Oral 200 mg, 2x a day. amLODIPine Besylate Oral (Tablet 10 mg) 1 tablet, daily. Aspirin Oral (Tablet Delayed Release 81 mg) 1 tablet, 2x a day. Baclofen Oral (Tablet 10 mg) 1 tablet, 3x a day. Bisacodyl Rectal (Suppository 10 mg), as needed. Colace Oral 100 mg, 3x a day as needed. DULoxetine HCl Oral (Capsule Delayed Release Particles 60 mg) 1 capsule, daily. Eliquis Oral (Tablet 2.5 mg) 1 tablet, 2x a day. Gabapentin Oral (Tablet 600 mg) 1 tablet, 3x a day. HumaLOG Subcutaneous. Lidocaine patch. Metoprolol Succinate ER Oral (Tablet Extended Release 24 Hour 50 mg) 1 tablet, daily. Milk of Magnesia Oral. 2 Clinical Report - Nurses [facility] Emergency Department [address] [place] [address] Phone #: ext- [phone] 08/31/2020 09:32 Patient: DIANA OLIVERA Sex: M : 1955 Age: 65yMultivitamins Oral.oxyCODONE HCl Oral 5 mg, q6h as needed.Pantoprazole Sodium Oral 40 mg, daily.ProAir HFA Inhalation.Senna Oral (Capsule 8.6 mg) 1 capsule, 2x a day.Zinc Oral (Capsule 220 (50 Zn) mg) 1 capsule, daily. --09:50 08/31/20 Rachael Cole, RNAscorbic Acid Oral (Tablet 500 mg), 2x a day. --09:51 08/31/20 Rachael Cole, RNCholecalciferol Oral (Tablet 25 MCG (1000 UT)), daily. --09:52 08/31/20 Rachael Cole, RNDoxycycline Hyclate Oral (Tablet 100 mg), 2x a day. --09:52 08/31/20 Rachael Cole, RNfentaNYL Transdermal 100 mcg/hr, every 3 days. --09:53 08/31/20 Rachael Cole RNguaiFENesin ER Oral (Tablet Extended Release 12 Hour 600 mg), 2x a day. --09:53 08/31/20 Rachael Cole RNLactobacillus Oral, 3x a day. --09:54 08/31/20 Rachael Cole RNLatanoprost Ophthalmic (Solution 0.005 %) 1 drop, at bedtime. --09:55 08/31/20 Rachael Cole RNLevemir Subcutaneous 16u, 2x a day. --09:55 08/31/20 Rachael Cole RNOscal 500/200 D-3 Oral, 2x a day. --09:56 08/31/20 Rachael Cole RNToprol XL Oral 50 mg, daily. --09:56 08/31/20 Rachael Cole RNThe following entry was struck and corrected by Rachael Cole RN, 09:58 (08/31/20) Reason forcorrection - other(correction). Serevent Diskus Inhalation. --09:50 08/31/20 Rachael Cole RNThe following entry was struck by Rachael Cole RN, 09:57 (08/31/20) Reason - other. Doxycycline Hyclate Oral. --09:52 08/31/20 Rachael Cole RNThe following entry was struck by Rachael Cole RN, 09:56 (08/31/20) Reason - other. guaiFENesin ER Oral. --09:53 08/31/20 Rachael Cole RNThe following entry was struck by Rachael Cole RN, 09:56 (08/31/20) Reason - other. Cholecalciferol Oral. --09:51 08/31/20 Rachael Cole RN .AllergiesNo Known Drug Allergy. --14:09 08/31/20 Arelis White R.N.The following entry was struck by Rachael Cole RN, 09:51 () Reason - other.TAPE. --09:36 08/31/20 Rachael Cole RN .PROBLEMS:COVID- 19.Renal Insufficiency.Sepsis (disorder).Ulcers on toes and legs.UTI - Urinary Tract Infection.Sleep Apnea. 3 Clinical Report - Nurses [facility] Emergency Department [address] [place] [address] Phone #: ext- [phone] 08/31/2020 09:32 Patient: DIANA OLIVERA Sex: M : 1955 Age: 65yTremor.Muscle Strain, Upper Extremity.Hypoxia.Pneumonia.Osteomyelitis. --09:37 08/31/20 Rachael Cole, RNPeripheral Vascular Disease.Diabetes Mellitus.Glaucoma.MRSA.Hypertension.Atrial Fibrillation.COPD - Chronic Obstructive Pulmonary Disease.Hemiplegia affecting R.Transient cerebral ischemic attack.Endocarditis. --10:19 08/31/20 Rachael Cole RN.Medication/allergy information source: the patient's senior living record and previous visit record. --09: Rachael Cole RN.ADDITIONAL SURGERIES:Amputation Lower Extremity (Left Great toe).C6 Corpectomy and Fusion c5-c6 w/ fibular strut graft .Cardiac catherization.Melanoma removal 1998.Rotator Cuff Surgery.Stent placement 2015. --09:37 08/31/20 Rachael Cole RN.HistorySOCIAL HX: Former smoker. No alcohol use or drug use. He was offered HIV testing but declined andhepatitis C testing but declined.Infectious disease exposure: No infectious disease exposure. The patient was exposed to Coronavirus.Mask placed on patient. Precautions taken.SELF HARM ASSESSMENT: Self harm assessment was performed. The patient answered "no" to thequestion(s) "Have you recently felt down, depressed, or hopeless?".ABUSE ASSESSMENT: No report of abuse.NUTRITIONAL RISK ASSESSMENT: The nutritional risk assessment revealed no deficiencies.FUNCTIONAL ASSESSMENT: Functional assessment: no impairments noted.LEARNING NEEDS ASSESSMENT: The learning needs assessment revealed no barriers. 4 Clinical Report - Nurses [facility] Emergency Department [address] [place] [address] Phone #: ext- [phone] 08/31/2020 09:32 Patient: [facility]IA[facility]A [facility] Rapid[facility] [id number] Sex: M : 1955 Age: 65y FALL RISK ASSESSMENT: Fall risk assessment completed. Risk factors identified include weakness and patient medications, age greater than 65 years and impairment of mobility. Fall interventions initiated. Patient placed on stretcher. Side rails up x2. Bed in low position. Brakes on. Call light in reach of patient. SKIN INTEGRITY ASSESSMENT: Skin integrity risk assessment completed. No skin integrity risk identified. --09:40 08/31/20 Rachael Cole RN 10:09 08/31/20. SOCIAL HX: The patient has not traveled outside the [place] --14:09 08/31/20 Arelis White R.N. Interventions Allergy band on patient. --09:40 08/31/20 Rachael Cole RN.PHYSICAL ASSESSMENT 10:26 08/31/20. To room via stretcher. GENERAL / NEURO / PSYCH: Alert. Oriented X 4. Appears in no acute distress. HEENT: Pupils equal, round and reactive to light. No facial asymmetry noted. Mucous membranes are pink. RESPIRATORY: Respirations not labored. Decreased breath sounds. CVS: Pulses within normal limits. GI / : The patient has had nausea. Emesis noted. Abdomen soft and nontender. Patient is incontinent of urine. Scrotal tenderness with erythema. SKIN: Blister noted on the sacrum. Poor skin turgor. ( heel protector boots on). --10:51 08/31/20 Arelis White R.N.NURSING PROGRESS NOTES Monitoring of patient in place. Patient gowned. Reassurance given. Two patient identifiers checked. Bed placed in lowest position. Brakes of bed on. Patient ready for evaluation. --09:41 08/31/20 Rachael Cole RN 10:12 08/31/20. BP: 111/86. MAP: 94. HR: 73. RR: 18. O2 saturation: 95%. --10:12 08/31/20 [facility] Tech, [facility] Tech1 10:26 08/31/20. HR: 72. RR: 19. O2 saturation: 100%. --10:27 08/31/20 [facility] Tech, [facility], Tech1 10:15 08/31/20. 14 fr in/out catheterization placed in ED. Reason for indwelling catheter: neurogenic bladder. Return of 350 mL yellow- colored clear urine. He tolerated procedure well. --10:51 08/31/20 Arelis White R.N. 10:42 08/31/2020 Site #1 started via IV in the right antecubital space with an 20g angiocath, with aseptic technique and good blood return; three attempts. Saline lock flushed with 10 mL saline. --10:42 08/31/20 Arelis White R.N. 10:42 08/31/2020 Started bag #1 250 mL IV Fluids NS; at 100 mL/hr via site #1 via IV pump. Allergies 5 Clinical Report - Nurses [facility] Emergency Department [address] [place] [address] Phone #: ext- [phone] 08/31/2020 09:32 Patient: DIANA OLIVERA Sex: M : 1955 Age: 65y verified and confirmed 5 rights. IV patency established. IV site checked: no pain, redness, or swelling. IV flushed thoroughly pre- and post-medication administration. Information reviewed with patient including reason for taking this medication. Verbalizes understanding. --10:42 08/31/20 Arelis White R.N. 10:42 08/31/2020 Zofran (Ondansetron HCl) IVP 4 mg given via site #1. Allergies verified and confirmed 5 rights. IV patency established. IV site checked: no pain, redness, or swelling. IV flushed thoroughly pre- and post-medication administration. IVP given by RN. Information reviewed with patient including reason for taking this medication. Verbalizes understanding. --10:42 08/31/20 Arelis White R.N. 11:00 08/31/20. BP: 103/72. MAP: 82. HR: 69. RR: 18. O2 saturation: 94%. --11:00 08/31/20 [place] [address] 11:27 08/31/20. BP: 122/49. MAP: 73. HR: 68. RR: 16. O2 saturation: 97%. --11:27 08/31/20 [place] [address] Patient waiting for lab results. --11:35 08/31/20 Arelis White R.N. 11:59 08/31/20. BP: 113/43. MAP: 66. HR: 65. RR: 16. O2 saturation: 97%. --11:59 08/31/20 [place] [address] 12:10 08/31/2020 Doxycycline PO 100 mg given. Allergies verified and confirmed 5 rights. Information reviewed with patient including reason for taking this medication. Verbalizes understanding. --12:10 08/31/20 Arelis White R.N. The patient is calm and resting quietly. Patient waiting for admit bed. --12:12 08/31/20 Arelis White R.N. The patient is calm, resting quietly and sleeping and has had no adverse reaction. ( Waiting to take pt to U.). --12:29 08/31/20 Arelis White R.N. 12:33 08/31/20. BP: 133/53. MAP: 79. HR: 67. RR: 16. O2 saturation: 100%. --12:34 08/31/20 [place] [address] 12:59 08/31/20. BP: 115/30. MAP: 58. HR: 64. RR: 16. O2 saturation: 100%. --13:00 08/31/20 [place] [address] 13:30 08/31/20. BP: 118/44. MAP: 68. HR: 45. RR: 10. O2 saturation: 93%. --13:30 08/31/20 [facility] Tech[facility].DISPOSITION / DISCHARGE 13:45 08/31/20. Departure time: 13:45 08/31/2020. Condition at departure: stable. Admitted to the Acute Inpatient Unit. Transported via stretcher by nurse with monitor, IV and mask. Report was given to a nurse in person. Report included patient's care, condition, vital signs, labs, medications and IV's. All questions were 6 Clinical Report - Nurses [facility] Emergency Department [address] [place] [address] Phone #: [phone]- [phone] 08/31/2020 09:32 Patient: DIANA OLIVERA Sex: M : 1955 Age: 65y answered. Report was acknowledged. (ERICA Lopez). --14:09 08/31/20 Arelis White R.N. 14:00 08/31/2020 Site #[address] upon admission; patent, no pain and no signs of infection or infiltration. Good blood return present. --14:07 08/31/20 Arelis White R.N. 14:00 08/31/2020 IV Fluids NS via IV site #1 Continued: at the rate of 100 mL/hr. 500 mL remaining bag #1. IV patency established. IV site checked: no pain, redness, or swelling. IV flushed thoroughly. --14:07 08/31/20 Arelis White R.N. 13:45 08/31/20. BP: 113/64. MAP: 80. HR: 63. RR: 18. O2 saturation: 96% on nasal cannula at 2 liters/minute. Temp: 98.1 F. Pain level now: 5/10. --14:09 08/31/20 Arelis White R.N.Locked/Released at 08/31/2020 14:09 by Arelis White R.N. Name Value Range Interpretation Code Description Data Sanjuana rce(s) Supporting Document(s) ID Date Data Source [id number] 08/31/2020 09:33:00 AM [facility] 1 Clinical Report - Physicians/Mid Levels [facility] Emergency Department [address] [place] [address] Phone #: ext- [phone] 08/31/2020 09:32 Patient: DIANA OLIVERA Sex: M : 1955 Age: 65y Time Seen: 09:37 08/31/2020; initial patient contact. Arrived- By ambulance. Historian- EMS personnel and senior living nurse and records. Disposition decision: 11:56 08/31/2020.HISTORY OF PRESENT ILLNESS Chief Complaint: VOMITING. NAUSEA. This started yesterday and is now gone. It has been intermittent and waxing/waning. No recent travel. He has had mild nausea. He has had vomiting. The vomiting has occurred twice. No blood-tinged emesis or frankly bloody emesis. No diarrhea, black stools, bloody stools, abdominal pain or constipation. No flank pain, history of possible bad food exposure, known contact with a sick individual or change in routine. Has recently been on antibiotics but not recently been camping. The illness is described as mild. (pt well known to us, was transferred from our ER 08-10-20 to [facility] w Covid PNA, test positive, d/c back to [place] 08-22-20 w negative Covid test; yesterday had mild hypoxia, N/V x 2, low BP, had blood work done, WBC [id number]; pt feels okay today). Similar symptoms previously. Patient has had similar symptoms occasionally. Recent medical care: The patient was seen recently at another facility and hospitalized.REVIEW OF SYSTEMS No fever, muscle aches, difficulty with urination, dark urine or headache. No dizziness, sore throat, cough, chest pain or difficulty breathing. No excessive urination, skin rash, jaundice, back pain or fainting episodes. No blurred vision. All other systems reviewed and are negative.PAST HISTORY See nurses notes. Problems: Degenerative Joint Disease. Osteoarthritis of Finger Joint. Emphysema. Glaucoma. Atrial Fibrillation. COPD - Chronic Obstructive Pulmonary Disease. Congestive Heart Failure. Hypertension. Hypomagnesemia. Hyperthyroidism. 2 Clinical Report - Physicians/Mid Levels [facility] Emergency Department [address] [place] [address] Phone #: ext- [phone] 08/31/2020 09:32 Patient: DIANA OLIVERA Sex: M : 1955 Age: 65yHypercholesterolemia.Diabetes Mellitus.COVID-19.Renal Insufficiency.Sepsis (disorder).Ulcers on toes and legs.UTI - Urinary Tract Infection.Sleep Apnea.Tremor.Muscle Strain, Upper Extremity.Hypoxia.Pneumonia.Osteomyelitis.Add itional Surgeries:Amputation Lower Extremity. (Left Great toe)C6 Corpectomy and Fusion c5-c6 w/ fibular strut graft .Cardiac catherization.Melanoma removal 1998.Rotator Cuff Surgery.Stent placement 2016.Medications:Toprol XL Oral 50 mg, daily.Oscal 500/200 D-3 Oral, 2x a day.Levemir Subcutaneous 16u, 2x a day.Latanoprost Ophthalmic (Solution 0.005 %) 1 drop, at bedtime.Lactobacillus Oral, 3x a day.guaiFENesin ER Oral (Tablet Extended Release 12 Hour 600 mg), 2x a day.fentaNYL Transdermal 100 mcg/hr, every 3 days.Doxycycline Hyclate Oral (Tablet 100 mg), 2x a day.Cholecalciferol Oral (Tablet 25 MCG (1000 UT)), daily.Ascorbic Acid Oral (Tablet 500 mg), 2x a day.Amiodarone HCL Oral 200 mg, 2x a day.amLODIPine Besylate Oral (Tablet 10 mg) 1 tablet, daily.Aspirin Oral (Tablet Delayed Release 81 mg) 1 tablet, 2x a day.Baclofen Oral (Tablet 10 mg) 1 tablet, 3x a day.Bisacodyl Rectal (Suppository 10 mg), as needed.Colace Oral 100 mg, 3x a day as needed.DULoxetine HCl Oral (Capsule Delayed Release Partic les 60 mg) 1 capsule, daily.Eliquis Oral (Tablet 2.5 mg) 1 tablet, 2x a day.Gabapentin Oral (Tablet 600 mg) 1 tablet, 3x a day.HumaLOG Subcutaneous.Lidocaine patch. 3 Clinical Report - Physicians/Mid Levels [facility] Emergency Department [address] [place] [address] Phone #: ext- [phone] 08/31/2020 09:32 Patient: DIANA OLIVERA Sex: M : 1955 Age: 65y Metoprolol Succinate ER Oral (Tablet Extended Release 24 Hour 50 mg) 1 tablet, daily. Milk of Magnesia Oral. Multivitamins Oral. oxyCODONE HCl Oral 5 mg, q6h as needed. Pantoprazole Sodium Oral 40 mg, daily. ProAir HFA Inhalation. Senna Oral (Capsule 8.6 mg) 1 capsule, 2x a day. Zinc Oral (Capsule 220 (50 Zn) mg) 1 capsule, daily. Serevent Diskus Inhalation (Aerosol Powder Breath Activated 50 mcg/dose) 1 puff, 2x a day after meals. Allergies: No Known Drug Allergy.SOCIAL HISTORY Former smoker. No alcohol use or drug use. Resides in a senior living.ADDITIONAL NOTES The nursing notes have been reviewed with agreement regarding the chief complaint, HPI, ROS, PMH and patient medica tions and allergies.PHYSICAL EXAM Vital Signs: 08/31/2020 09:33 BP: 110/83. MAP: 92. HR: 72. RR: 14. O2 saturation: 100% on nasal cannula at 2 liters/minute. Temp: 98.3 F. Pain level now: 6/10. Have been reviewed. Oxygen saturation normal. Appearance: Alert. Oriented X3. No acute distress. Eyes: Pupils equal, round and reactive to light. Eyes normal inspection. ENT: Nose normal. Pharynx normal. Neck: Normal inspection. Neck supple. CVS: Normal heart rate and rhythm. Heart sounds normal. Pulses normal. Respiratory: No respiratory distress. Mildly decreased air movement in the bases bilaterally. Abdomen: Soft and nontender. Bowel sounds normal. No organomegaly. No mass. Femoral pulses equal. Back: Normal inspection. Skin: Skin warm and dry. Normal skin color. No rash. Normal skin turgor. Extremities: (b/f feet inside padding, RLE w bandage). Neuro: Oriented X 3. No motor deficit. No sensory deficit.LABS, X-RAYS, AND EKG EKG: No acute process. No acute ischemia. Normal EKG. Normal sinus rhythm. Rate: 70/min. Incomplete RBBB. Left axis deviation. Normal ST and T waves. EKG unchanged when compared with prior EKG. (08-10-20). The study has been interpreted contemporaneously by me. The EKG appears to be a good tracing. Interpretation time: 09:43 08/31/2020. Chest X-ray: (see report, B/L infiltrates mildly improved since 08-10-20). Views: AP (portable). Technique: good. The X- rays were interpreted by the radiologist. Interpretation time: 10:02 08/31/2020. Laboratory Tests: Laboratory tests have been ordered, with results reviewed and considered in the 4 Clinical Report - Physicians/Mid Levels [facility] Emergency Department [address] [place] [address] Phone #: ext- [phone] 08/31/2020 09:32 Patient: DIANA OLIVERA Sex: M : 1955 Age: 65ymedical decision making process.COVID-19 CAH: (ILEANA: 08/31/2020 10:04) ( MsgRcvd 08/31/2020 11:25) Final results Test Result Flag Units (Reference) COVID-19 NOT DETECTED COVID-19 REENTER NOT DETECTED { PROCEDURAL CONTROL VALID KIT LOT # _[id number] 08/31/20.1046.JNL. KIT EXP DATE _11/21/20 08/31/20.1046.JNL. NORMAL RANGE IS NOT DETECTEDNEGATIVE RESULTS SHOULD BE TREATEDAS PRESUMPTIVE AND, IF INCONSISTENT WITHCLINICAL SIGNS AND SYMPTOMS OR NECESSARY FOR PATIENT MANAGEMENT, SHOULDBETESTED WITH DIFFERENT AUTHORIZED OR CLEARED MOLECULAR TESTS. NEGATIVE RESULTSDO NOT PRECLUDE [id number] AND SHOULD NOT BE USED THE SOLE BASISFOR PATIENT MANAGEMENT DECISIONS.CBC w Diff: (ILEANA: 08/31/2020 10:05) ( MtgRcvd 08/31/2020 11:24) Final results Test Result Flag Units (Reference) CBC W/AUTOMATED DIFF COMPLETE BLOOD COUNT WBC 14.6 H 10/uL (4.2 - 11.0) RBC 4.72 10/uL (4.50 - 6.30) HEMOGLOBIN 11.8 L g/dL (14.0 - 16.0) HEMATOCRIT 38.7 L % (41.0 - 51.0) MCV 82.0 fL (80.0 - 94.0) MCH 25.0 L pg (27.0 - 34.0) MCHC 30.5 L g/dL (31.0 - 36.0) RDW 19.2 H % (11.5 - 14.8) PLATELETS 136 L 10/uL (150 - 450) MPV 9.6 fL (7.4 - 10.4) NEUT 84.7 H % (37.0 - 80.0) LYMPH 6.5 L % (25.0 - 40.0) MONO 7.1 % (3.0 - 8.0) EOS 0.4 % (0.0 - 7.0) BASO 0.5 % (0.0 - 2.0) %IG 0.8 H % (0.0 - 0.0) %NRBC 0.0 % (0.0 - 0.0) #NEUT 12.40 H 10/uL (2.00 - 6.90) #LYMPH 0.95 10/uL (0.60 - 3.40) #MONO 1.04 H 10/uL (0.00 - 0.90) #EOS 0.06 10/uL (0.00 - 0.70) #BASO 0.07 10/uL (0.00 - 0.20) #IG 0.11 H 10/uL (0.00 - 0.10) #NRBC 0.00 10/uL (0.00 - 0.00) MANUAL DIFF SEE BELOW SEGS 87 H % (37 - 80) BAND 0 % (0 - 5) %LYMPH 7 L % (25 - 40) %MONO 6 % (3 - 8) %EOS 0 % (0 - 7) %BASO 0 % (0 - 2) RBC MORPH NOT INDICATEDCMP: (ILEANA: 08/31/2020 10:05) ( MsgRcvd 08/31/2020 11:19) Final results Test Result Flag Units (Reference) COMPREHENSIVE METABOLIC PANEL COMPREHENSIVE METABOLIC PANEL SODIUM 135 mEq/L (134 - 153) POTASSIUM 4.7 mEq/L (3.6 - 5.0) 5 Clinical Report - Physicians/Mid Levels [facility] Emergency Department [address] [place] [address] Phone #: ext- [phone] 08/31/2020 09:32 Patient: DIANA OLIVERA Sex: M : 1955 Age: 65y CHLORIDE 97 L mEq/L (98 - 107) CO2 31 H MEQ/L (22 - 30) GLUCOSE 269 H MG/DL (70 - 99) BUN 26 H MG/DL (7 - 21) CREATININE 0.7 MG/DL (0.7 - 1.5) BUN/CREAT 37 H (8 - 27) TOTAL PROTEIN 6.2 L G/DL (6.3 - 8.2) ALBUMIN 3.2 L G/DL (3.9 - 5.0) GLOBULIN 3.0 GM/DL (2.4 - 3.2) A/G RATIO 1.1 (0.8 - 2.0) CALCIUM 8.9 MG/DL (8.4 - 10.2) TOTAL BILI <0.7 MG/DL (0.2 - 1.3) ALKALINE PHOS 74 U/L (38 - 126) SGOT/AST 29 U/L (5 - 40) SGPT/ALT 32 U/L (7 - 56) ANION GAP 7.0 L mmol/L (8.0 - 16.0) AGE 65 yrs NON-AA GFR >60 mL/min AFR AMER GFR >60 mL/min Male GFR Interprentation 20-49 yrs >60 mL/min Tosblb78-35 yrs >56 mL/min Normal 60-69 yrs >49 mL/min Normal 70-79yrs>42 mL/min Normal 80 and above >35 mL/min Normal Female GFRInterpretation 20-39 yrs >60 mL/min Normal 40-49 yrs >58 mL/minNormal 50-59 yrs >51 mL/min Normal 60-69 yrs >45 mL/min Lzflph65-85 yrs >39 mL/min Normal 80 and above >32 mL/min NormalLipase: (ILEANA: 08/31/2020 10:05) ( [facility] 08/31/2020 11:20) Final results Test Result Flag Units (Reference) LIPASE 12 L U/L (13 - 60)PT/PTT: (ILEANA: 08/31/2020 10:05) ( MsgRcvd 08/31/2020 11:33) Final results Test Result Flag Units (Reference) PROTIME 14.7 SECONDS (11.0 - 15.5) INR 1.09 (0.93 - 1.23) PTT 42.2 H SECONDS (24.8 - 36.7) \\BLDo\\INR INTERPRETATION\\BLDx\\ Therapeutic range for Coumadin andrelated oral anticoagulants. -International Normalized Ratio (INR): 2.0 - 3.0 for VenousThrombosis, Pulmonary Embolus, Tissue heart valves, Acute GA Atrial Fibrillation, Valvular heart diseaseand recurrent Systemic Embolism. -International Normalized Ratio (INR): 2.5 - 3.5 forMechanical Prosthetic valve.Troponin-T: (ILEANA: 08/31/2020 10:05) ( [facility] 08/31/2020 11:25) Final results Test Result Flag Units (Reference) TROPONIN T <0.01 NG/ML (0.00 - 0.10) TROPONIN T0.1 ng/ml Recommended as the clinical threshold value forTroponin T.Magnesium: (ILEANA: 08/31/2020 10:05) ( [facility] 08/31/2020 11:20) Final results Test Result Flag Units (Reference) MAGNESIUM 1.5 L MG/DL (1.7 - 2.2)Urinalysis: (ILEANA: 08/31/2020 10:27) ( [facility] 08/31/2020 11:36) Final results Test Result Flag Units (Reference) URINALYSIS URINALYSIS 6 Clinical Report - Physicians/Mid Levels [facility] Emergency Department [address] [place] [address] Phone #: ext- [phone] 08/31/2020 09:32 Patient: DIANA OLIVERA Sex: M : 1955 Age: 65y SOURCE R COLOR yellow (NORMAL: Yello CLARITY clear (NORMAL: Clear SPEC GRAVITY 1.020 (1.001 - 1.030 pH 5 (5 - 9) GLUCOSE 50 A (NORMAL: Negat BILIRUBIN NEG (NORMAL: Negat KETONE NEG (NORMAL: Negat PROTEIN 100 A (NORMAL: Negat NITRITE NEG (NORMAL: Negat BLOOD NEG (NORMAL: Negat LEUK EST NEG (NORMAL: Negat UROBILINOGEN NOR (less than 1.0 MICROSCOPIC See Below WBC 1 - 3 (NORMAL: NONE RBC 0 - 1 (NORMAL: NONE BNP: (ILEANA: 08/31/2020 10:05) ( MsgRcvd 08/31/2020 11:25) Final results Test Result Flag Units (Reference) BNP 269 H PG/ML (0 - 125) Lactic Acid: (ILEANA: 08/31/2020 10:05) ( MsgRcvd 08/31/2020 10:18) Final results Test Result Flag Units (Reference) LACTIC ACID 1.6 MMOL/L (0.2 - 2.2).PROGRESS AND PROCEDURES Course of Care: 11:55 08/31/20. workup all in and reviewed, WBC improved from yesterday, CXR improved from 08-10-20; pt is recuperating from Covid PNA; rapid Covid negative today; case discussed w hospitalist, Wendi Christie, [employer]ET[employer] MANAGER, who will admit for observation. Critical care performed (60 minutes). Time is exclusive of separately billable procedures. Time includes: direct patient care, patient reassessment, coordination of patient care, interpretation of data (laboratory data, chest xrays and prior electrocardiograms), medical consultation and documentation of patient care- see progress notes. Patient counseled in person regarding the patient's stable condition, test results, diagnosis and need for admission. Patient agrees with plan of care. Disposition: Condition: good and stable. Admit decision based on need for further evaluation, monitoring, telemetry, observation, IV therapy, hydration and medications and stabilization of condition.CLINICAL I MPRESSION Vomiting with nausea (resolved). Acute generalized weakness. S/P Covid-19 Pneumoniae (08-10-20). 7 Clinical Report - Physicians/Mid Levels [facility] Emergency Department [address] [place] [address] Phone #: ext- [phone] 08/31/2020 09:32 -------- Patient: DIANA OLIVERA Sex: M : 1955 Age: 65y(Electronically signed by Rigo Ge M.D. 08/31/2020 14:30) Name Value Range Interpretation Code Description Data Sanjuana rce(s) Supporting Document(s) ID Date Data Source [id number] 08/31/2020 09:33:00 AM [facility] Addenda for DIANA OLIVERA VisitID: [id number] Date: 12:09Jaylon Cunningham made aware of med rec request.T-system overview faxed to [employer] @ [phone](Electronically signed by Prem Sam - 08/31/2020 12:09) Name Value Range Interpretation Code Description Data Sanjuana rce(s) Supporting Document(s) ID Date Data Source [id number] 09/02/2020 12:51:00 AM [facility] AEROBIC [id number] TO CORNELIUS ([facility]) 09/02 AT 0050 BY JAH. RESULT READBACK.The FilmArray BCID Panel is a qualitative multiplexednucleic acid-based test - PCRNormal results for each test is "Not detected"The BCID panel detects KPC,mecA,Hattie/Bresistance,enterococcus,L.monocytogenes,Staphlococcus,S.aureus,St reptococcus,GRP B, GRP A, S.pneumoniae,A.baumanii,Enterobacteriaceae,E.cloacae comple x,E.coli,K.oxytoca,K.pneumoniae,Proteus,S.marcescens,H.influenzae,N.meningitidis ,P.aeruginosa,C. albicans,C.glabrata ,C.krusei,C.parapsilosis,C.tropicalisTraditional Culture ID and Sensitivities will still beperformed on all positive blood cultures.The FilmArray BCID panel may not distinguish mixed cultureswhen two or more species of the same genus or organism groupare present in a specimen.This test is a qualitative test and does not provide aquantitative value for the organism(s)in the sample.Antimicrobial resistance can occur via multiple mechanisms.A Not detected result for the [employer] antimicrobialresistance gene assays does not indicate antimicrobialsusceptibility. Subculturing and standard susceptibilitytesting of isolates is requried to determine antimicrobialsusceptibility.Results from this test must be correlated with the clinicalhistory, epidemiological data,and otherdata available to theclinician evaluating the patient.Enterococcus detected Name Value Range Interpretation Code Description Data Sanjuana rce(s) Supporting Document(s) ID Date Data Source [id number] 09/03/2020 01:46:00 PM EST [facility] Name Value Range Interpretation Code Description Data [facility] rce(s) Supporting Document(s) CULTURE BLOOD [facility] _CULTURE BLOOD_ [place] [address] CLIA# [id number] SEE SCANNED REPORTG+ COCCI IN CHAINS POS ENTERCOCCUS SPCALLED TO [facility]){ PRELIM EDGAR 09-02-20 0050 ID Date Data Source [id number] 08/31/2020 11:06:00 AM [facility] Name Value Range Interpretation Code Description Data [facility] rce(s) Supporting Document(s) URINALYSIS [facility] URINALYSIS SOURCE R [facility] COLOR yellow NORMAL: Yellow [facility] CLARITY clear NORMAL: Clear [facility] Specific gravity of Urine by Test strip 1.020 1.001 - 1.030 [facility] pH 5 5 - 9 [facility] Glucose [Mass/volume] in Urine by Test strip 50 NORMAL: Negat [facility] Bilirubin.total [Presence] in Urine by Test strip NEG NORMAL: Negative [facility] Ketones [Presence] in Urine by Test strip NEG NORMAL: Negative [facility] Protein [Mass/volume] in Urine by Test strip 100 NORMAL: [facility] Nitrite [Presence] in Urine by Test strip NEG NORMAL: Negative [facility] BLOOD NEG NORMAL: Negative [facility] Leukocyte esterase [Presence] in Urine by Test strip NEG SUSAN L: Negative [facility] Urobilinogen [Mass/volume] in Urine by Test strip NOR less ben n 1.0 mg/dL [facility] MICROSCOPIC See Below [facility] WBC 1 - 3 NORMAL: NONE SEEN [facility] Erythrocytes [#/volume] in Urine by Test strip 0 - 1 NORMAL: NON E SEEN [facility] ID Date Data Source [id number] 09/03/2020 07:59:00 AM EST [facility] [id number] Name Value Range Interpretation Code Description Data Sanjuana rce(s) Supporting Document(s) Ampicillin [Susceptibility] by Minimum inhibitory concentration (LUIS A) <2 Susceptible. Indicates for microbiology susceptibilities only. [facility] Ciprofloxacin [Susceptibility] by Minimum inhibitory concentrati on (LUIS A) >2 Resistant. Indicates for microbiology susceptibilities only. [facility] Erythromycin [Susceptibility] by Minimum inhibitory concentratio n (LUIS A) >4 Resistant. Indicates for microbiology susceptibilities only. [facility] Penicillin [Susceptibility] by Minimum inhibitory concentration (LUIS A) 2 Susceptible. Indicates for microbiology susceptibilities only. [facility] Tetracycline [Susceptibility] by Minimum inhibitory concentratio n (LUIS A) >8 Resistant. Indicates for microbiology susceptibilities only. [facility] Vancomycin [Susceptibility] by Minimum inhibitory concentration (LUIS A) 2 Susceptible. Indicates for microbiology susceptibilities only. [facility] Levofloxacin [Susceptibility] by Minimum inhibitory concentratio n (LUIS A) >4 Resistant. Indicates for microbiology susceptibilities only. [facility] ID Date Data Source [id number] 09/05/2020 06:29:00 PM EST [facility] [id number] Name Value Range Interpretation Code Description Data Sanjuana rce(s) Supporting Document(s) Bacteria identified in Blood by Culture [facility] NO GROWTH AFTER 5 DAYS ID Date Data Source [id number] 09/06/2020 10:16:00 AM [facility] Name Value Range Interpretation Code Description Data Sanjuana rce(s) Supporting Document(s) CULTURE BLOOD [facility] spital _CULTURE BLOOD_{ PRELIM TEST PERFORMED AT [place] [id number] [place] [address] CLIA# [id number] SEE SCANNED REPORT ID Date Data Source [id number] 08/31/2020 03:21:00 PM [facility] Name Value Range Interpretation Code Description Data Sanjuana rce(s) Supporting Document(s) C reactive protein [Mass/volume] in Serum or Plasma by High sensitivity method 249.18 MG/L 1.00 - 3.00 H [facility] HS-CRP CUT-OFF: RELATIVE RISK: <1.0 mg/L Low 1.0 - 3.0 mg/L Average >3.0 mg/L High Optimally, the average of HS-CRP results repeated two weeks apart should be used for risk assessment. ID Date Data Source [id number] 08/31/2020 11:01:00 AM [facility] Name Value Range Interpretation Code Description Data Sanjuana rce(s) Supporting Document(s) Prothrombin time (PT) 14.7 SECONDS 11.0 - 15.5 [facility] INR in Platelet poor plasma by Coagulation assay 1.09 0.93 - 1. 23 [facility] aPTT in Blood by Coagulation assay 42.2 SECONDS 24.8 - 36.7 H [facility] \\BLDo\\INR INTERPRETATION\\BLDx\\ Therapeutic range for Coumadin and related oral anticoagulants. - International Normalized Ratio (INR): 2.0 - 3.0 for Venous Thrombosis, Pulmonary Embolus, Tissue heart valves, Acute [place] Atrial Fibrillation, Valvular heart disease and recurrent Systemic Embolism. - International Normalized Ratio (INR): 2.5 - 3.5 for Mechanical Prosthetic valve. ID Date Data Source [id number] 08/31/2020 10:48:00 AM [facility] Name Value Range Interpretation Code Description Data Sanjuana rce(s) Supporting Document(s) BNP 269 PG/ML 0 - 125 H [facility] ID Date Data Source [id number] 08/31/2020 10:48:00 AM [facility] Name Value Range Interpretation Code Description Data Sanjuana rce(s) Supporting Document(s) TROPONIN T <0.01 NG/ML 0.00 - 0.10 [facility] ospital TROPONIN T0.1 ng/ml Recommended as the c linical threshold value forTroponin T. ID Date Data Source [id number] 08/31/2020 10:47:00 AM EST [facility] Name Value Range Interpretation Code Description Data Sanjuana rce(s) Supporting Document(s) CBC W/AUTOMATED DIFF [facility] COMPLETE BLOOD COUNT Leukocytes [#/volume] in Blood by Automated count 14.6 10^3/uL 4.2 - 11.0 H [facility] Erythrocytes [#/volume] in Blood by Automated count 4.72 10^6/uL 4. 50 - 6.30 [facility] Hemoglobin [Mass/volume] in Blood 11.8 g/dL 14.0 - 16.0 L [facility] Hematocrit [Volume Fraction] of Blood by Automated count 38.7 % 4 1.0 - 51.0 L [facility] Erythrocyte mean corpuscular volume [Entitic volume] by Auto mated count 82.0 fL 80.0 - 94.0 [facility] Erythrocyte mean corpuscular hemoglobin [Entitic mass] by Automated count 25.0 pg 27.0 - 34.0 L [facility] Erythrocyte mean corpuscular hemoglobin concentration [Mass/volume] by Automated count 30.5 g/dL 31.0 - 36.0 L [facility] Erythrocyte distribution width [Ratio] by Automated count 19.2 % 11.5 - 14.8 H [facility] Platelets [#/volume] in Blood by Automated count 136 10^3/uL 150 - 45 0 L [facility] Platelet mean volume [Entitic volume] in Blood by Automated count 9.6 fL 7.4 - 10.4 [facility] Neutrophils/100 leukocytes in Blood by Automated count 84.7 % 37. 0 - 80.0 H [facility] Lymphocytes/100 leukocytes in Blood by Manual count 6.5 % 25.0 - 40.0 L [facility] Monocytes/100 leukocytes in Blood by Automated count 7.1 % 3.0 - 8.0 [facility] Eosinophils/100 leukocytes in Blood by Automated count 0.4 % 0.0 - 7.0 [facility] 0.5 %IG 0.8 % 0.0 - 0.0 [facility] %NRBC 0.0 % 0.0 - 0.0 [facility] Neutrophils [#/volume] in Blood by Automated count 12.40 10^3/uL 2. 00 - 6.90 H [facility] Lymphocytes [#/volume] in Blood by Automated count 0.95 10^3/uL 0.60 - 3.40 [facility] Monocytes [#/volume] in Blood by Automated count 1.04 10^3/uL 0.00 - 0.90 H [facility] Eosinophils [#/volume] in Blood by Automated count 0.06 10^3/uL 0.00 - 0.70 [facility] Basophils [#/volume] in Blood by Automated count 0.07 10^3/uL 0.00 - 0.20 [facility] #IG 0.11 10^3/uL 0.00 - 0.10 H [facility] #NRBC 0.00 10^3/uL 0.00 - 0.00 [facility] MANUAL DIFF SEE BELOW [facility] Segmented neutrophils/100 leukocytes in Blood by Manual count 87 % 37 - 80 H [facility] BAND 0 % 0 - 5 [facility] %LYMPH 7 % 25 - 40 L [facility] %MONO 6 % 3 - 8 [facility] %EOS 0 % 0 - 7 [facility] 0 RBC MORPH NOT INDICATED [facility] ID Date Data Source [id number] 08/31/2020 10:36:00 AM [facility] Name Value Range Interpretation Code Description Data Sanjuana rce(s) Supporting Document(s) Magnesium [Mass/volume] in Serum or Plasma 1.5 MG/DL 1.7 - 2.2 L [facility] ID Date Data Source [id number] 08/31/2020 10:36:00 AM [facility] Name Value Range Interpretation Code Description Data Sanjuana rce(s) Supporting Document(s) Lipase [Enzymatic activity/volume] in Serum or Plasma 12 U/L 13 - 60 L [facility] ID Date Data Source [id number] 08/31/2020 10:36:00 AM [facility] Name Value Range Interpretation Code Description Data Sanjuana rce(s) Supporting Document(s) COMPREHENSIVE METABOLIC PANEL [facility] COMPREHENSIVE METABOLIC PANEL Sodium [Moles/volume] in Serum or Plasma 135 mEq/L 134 - 153 [facility] Potassium [Moles/volume] in Serum or Plasma 4.7 mEq/L 3.6 - 5.0 [facility] Chloride [Moles/volume] in Serum or Plasma 97 mEq/L 98 - 107 L [facility] Carbon dioxide, total [Moles/volume] in Serum or Plasma 31 MEQ/L 22 - 30 H [facility] Glucose [Mass/volume] in Serum or Plasma 269 MG/DL 70 - 99 H [facility] BUN 26 MG/DL 7 - 21 H [facility] al Creatinine [Mass/volume] in Serum or Plasma 0.7 MG/DL 0.7 - 1.5 [facility] BUN/CREAT 37 8 - 27 H [facility] Protein [Mass/volume] in Serum or Plasma 6.2 G/DL 6.3 - 8.2 L [facility] Albumin [Mass/volume] in Serum or Plasma 3.2 G/DL 3.9 - 5.0 L [facility] Globulin [Mass/volume] in Serum by calculation 3.0 GM/DL 2.4 - 3.2 [facility] A/G RATIO 1.1 0.8 - 2.0 [facility] Calcium [Mass/volume] in Serum or Plasma 8.9 MG/DL 8.4 - 10.2 [facility] Bilirubin.total [Mass/volume] in Serum or Plasma <0.7 MG/DL 0.2 - 1.3 [facility] Alkaline phosphatase [Enzymatic activity/volume] in Serum or Plasma 74 U/L 38 - 126 [facility] Aspartate aminotransferase [Enzymatic activity/volume] in Serum or Plasma 29 U/L 5 - 40 [facility] Alanine aminotransferase [Enzymatic activity/volume] in Seru m or Plasma 32 U/L 7 - 56 [facility] Anion gap 3 in Serum or Plasma 7.0 mmol/L 8.0 - 16.0 L [facility]GE 65 [facility]rs [facility] >60 mL/min [facility] AFR AMER GFR >60 mL/min [facility] Male GFR In terprentation 20-49 yrs >60 mL/min Normal 50-59 yrs >56 mL/min Normal 60-69 yrs >49 mL/min Normal 70-79yrs >42 mL/min Normal 80 and above >35 mL/min Normal Female GFR Interpretation 20-39 yrs >60 mL/min Normal 40-49 yrs >58 mL/min Normal 50-59 yrs >51 mL/min Normal 60-69 yrs >45 mL/min Normal 70-79 yrs >39 mL/min Normal 80 and above >32 mL/min Normal ID Date Data Source [id number] 08/31/2020 10:18:00 AM [facility] Name Value Range Interpretation Code Description Data Sanjuana rce(s) Supporting Document(s) Lactate [Moles/volume] in Serum or Plasma 1.6 MMOL/L 0.2 - 2.2 [facility] ID Date Data Source [id number] 08/31/2020 10:04:00 AM EST [facility] Name Value Range Interpretation Code Description Data Sanjuana rce(s) Supporting Document(s) COVID19 Case rprt NOT DETECTED [facility] This lab was ordered by [facility] and reported by [facility]. ID Date Data Source [id number] 08/31/2020 10:46:00 AM [facility] NOT DETECTEDNOT DETECTED{ PROC EDURAL CONTROL VALID KIT LOT # _[id number] 08/31/20.1046.JNL. KIT EXP DATE _11/21/20 08/31/20.1046.JNL. NORMAL RANGE IS NOT DETECTEDNEGATIVE RESULTS SHOULD BE TREATED PRESUMPTIVE AND, IF INCONSISTENT WITHCLINICAL SIGNS AND SYMPTOMS OR NECESSARY FOR PATIENT MANAGEMENT, SHOULD BETESTED WITH DIFFERENT AUTHORIZED OR CLEARED MOLECULAR TESTS. NEGATIVE RESULTSDO NOT PRECLUDE SARS-CoV-2 INFECTION AND SHOULD NOT BE USED THE SOLE BASISFOR PATIENT MANAGEMENT DECISIONS. Name Value Range Interpretation Code Description Data Sanjuana rce(s) Supporting Document(s) ID Date Data Source [id number] 08/30/2020 07:53:00 PM [facility] Name Value Range Interpretation Code Description Data Sanjuana rce(s) Supporting Document(s) TROPONIN T <0.01 NG/ML 0.00 - 0.10 [facility] TROPONIN T0.1 ng/ml Recommended as the c linical threshold value Ashwinsherry T. ID Date Data Source [id number] 08/30/2020 07:47:00 PM EST [facility] Name Value Range Interpretation Code Description Data Sanjuana rce(s) Supporting Document(s) COMPREHENSIVE METABOLIC PANEL [facility] COMPREHENSIVE METABOLIC PANEL Sodium [Moles/volume] in Serum or Plasma 134 mEq/L 134 - 153 [facility] Potassium [Moles/volume] in Serum or Plasma 5.2 mEq/L 3.6 - 5.0 H [facility] Chloride [Moles/volume] in Serum or Plasma 98 mEq/L 98 - 107 [facility] Carbon dioxide, total [Moles/volume] in Serum or Plasma 22 MEQ/L 22 - 30 [facility] Glucose [Mass/volume] in Serum or Plasma 207 MG/DL 70 - 99 H [facility] BUN 30 MG/DL 7 - 21 [facility] Creatinine [Mass/volume] in Serum or Plasma 0.9 MG/DL 0.7 - 1.5 [facility] BUN/CREAT 33 8 - 27 H [facility] Protein [Mass/volume] in Serum or Plasma 5.6 G/DL 6.3 - 8.2 L [facility] Albumin [Mass/volume] in Serum or Plasma 3.1 G/DL 3.9 - 5.0 L [facility] Globulin [Mass/volume] in Serum by calculation 2.5 GM/DL 2.4 - 3.2 [facility] A/G RATIO 1.2 0.8 - 2.0 [facility] Calcium [Mass/volume] in Serum or Plasma 8.9 MG/DL 8.4 - 10.2 [facility] Bilirubin.total [Mass/volume] in Serum or Plasma <0.7 MG/DL 0.2 - 1.3 [facility] Alkaline phosphatase [Enzymatic activity/volume] in Serum or Plasma 78 U/L 38 - 126 [facility] Aspartate aminotransferase [Enzymatic activity/volume] in Serum or Plasma 31 U/L 5 - 40 [facility] Alanine aminotransferase [Enzymatic activity/volume] in Seru m or Plasma 27 U/L 7 - 56 [facility] Anion gap 3 in Serum or Plasma 14.0 mmol/L 8.0 - 16.0 [facility] AGE 65 yrs [facility] NON-AA GFR >60 mL/min [facility] ital AFR AMER GFR >60 mL/min [facility] Male GFR In terprentation 20-49 yrs >60 mL/min Normal 50-59 yrs >56 mL/min Normal 60-69 yrs >49 mL/min Normal 70-79yrs >42 mL/min Normal 80 and above >35 mL/min Normal Female GFR Interpretation 20-39 yrs >60 mL/min Normal 40-49 yrs >58 mL/min Normal 50-59 yrs >51 mL/min Normal 60-69 yrs >45 mL/min Normal 70-79 yrs >39 mL/min Normal 80 and above >32 mL/min Normal ID Date Data Source [id number] 08/30/2020 07:16:00 PM EST [facility] Name Value Range Interpretation Code Description Data Sanjuana rce(s) Supporting Document(s) CBC NO DIFF [facility] ital COMPLETE BLOOD COUNT Leukocytes [#/volume] in Blood by Automated count 21.3 10^3/uL 4.2 - 11.0 H [facility] Erythrocytes [#/volume] in Blood by Automated count 4.90 10^6/uL 4. 50 - 6.30 [facility] Hemoglobin [Mass/volume] in Blood 12.3 g/dL 14.0 - 16.0 L [facility] Hematocrit [Volume Fraction] of Blood by Automated count 40.2 % 4 1.0 - 51.0 L [facility] Erythrocyte mean corpuscular volume [Entitic volume] by Auto mated count 82.0 fL 80.0 - 94.0 [facility] Erythrocyte mean corpuscular hemoglobin [Entitic mass] by Automated count 25.1 pg 27.0 - 34.0 L [facility] Erythrocyte mean corpuscular hemoglobin concentration [Mass/volume] by Automated count 30.6 g/dL 31.0 - 36.0 L [facility] Erythrocyte distribution width [Ratio] by Automated count 19.6 % 11.5 - 14.8 H [facility] Platelets [#/volume] in Blood by Automated count 175 10^3/uL 150 - 45 0 [facility] Platelet mean volume [Entitic volume] in Blood by Automated count 10.1 fL 7.4 - 10.4 [facility] ID Date Data Source [id number] 08/30/2020 03:52:00 PM EST [facility] Name Value Range Interpretation Code Description Data Sanjuana rce(s) Supporting Document(s) CULTURE SPUTUM [facility] _CULTURE SPUTUM_$$[id number]$$[id number]$$[id number]$$[id number]$$[id number]$$[id number]$$[id number]$$[id number]$$[id number]$ $[id number]$$[id number]$$[id number]$$[id number] DATE/TIME: 08/28/2020 14:07Culture: CULTURE SPUTUM Status: FinalWhite Blood Cells: L0GrcSevpbzulyd Cells: B2PazvAnkzit 1: P1Rare gram positive cocci in pairs, chains, and clusters -- Continued on next page --Patient: JAROD Ross Order: [id number] Page 2Culture: CULTURE SPUTUM Status: Final Gram Stain Evaluation: P1This specimen is of poor quality and is unacceptable for routinebacterial culture. Many squamous epithelial cells (>24/lpf)are seen on Gram stain evaluation, indicative of oropharyngealcontamination (saliva). Notify laboratory within 48 hours ifculture is still desired, or recollect if clinically indicated.P1 [facility] performed [facility]: [facility] #: [id number] [phone] [facility] [address]Osgxeje Director : Abilio Ratliff MD NPI #:[employer] : 08/30/20.1552.XMT.SENT REF 08/30/20. .to [place] via fax ID Date Data Source [id number] 08/25/2020 09:03:00 AM [facility] Name Value Range Interpretation Code Description Data Sanjuana rce(s) Supporting Document(s) Thyroxine (T4) free index in Serum or Plasma by calculation 1.53 NG/DL 0.93 - 1.70 [facility] ID Date Data Source [id number] 08/25/2020 09:03:00 AM [facility] Name Value Range Interpretation Code Description Data Sanjuana rce(s) Supporting Document(s) Thyrotropin [Units/volume] in Serum or Plasma by Detec tion limit <= 0.05 mIU/L 1.17 uIU/mL 0.47 - 5.01 [facility] ID Date Data Source [id number] 08/25/2020 08:53:00 AM [facility] Name Value Range Interpretation Code Description Data Sanjuana rce(s) Supporting Document(s) Hemoglobin A1c/Hemoglobin.total in Blood 7.4 % 4.4 - 6.1 H [facility] {A1]{HB] ID Date Data Source [id number] 08/25/2020 08:22:00 AM [facility] Name Value Range Interpretation Code Description Data Sanjuana rce(s) Supporting Document(s) CBC NO DIFF [facility] ital COMPLETE BLOOD COUNT Leukocytes [#/volume] in Blood by Automated count 10.7 10^3/uL 4.2 - 11.0 [facility] Erythrocytes [#/volume] in Blood by Automated count 5.33 10^6/uL 4. 50 - 6.30 [facility] Hemoglobin [Mass/volume] in Blood 13.2 g/dL 14.0 - 16.0 L [facility] Hematocrit [Volume Fraction] of Blood by Automated count 43.1 % 4 1.0 - 51.0 [facility] Erythrocyte mean corpuscular volume [Entitic volume] by Auto mated count 80.9 fL 80.0 - 94.0 [facility] Erythrocyte mean corpuscular hemoglobin [Entitic mass] by Automated count 24.8 pg 27.0 - 34.0 L [facility] Erythrocyte mean corpuscular hemoglobin concentration [Mass/volume] by Automated count 30.6 g/dL 31.0 - 36.0 L [facility] Erythrocyte distribution width [Ratio] by Automated count 19.4 % 11.5 - 14.8 H [facility] Platelets [#/volume] in Blood by Automated count 299 10^3/uL 150 - 45 0 [facility] Platelet mean volume [Entitic volume] in Blood by Automated count 9.9 fL 7.4 - 10.4 [facility] ID Date Data Source [id number] 08/25/2020 09:10:00 AM [facility] Name Value Range Interpretation Code Description Data Sanjuana rce(s) Supporting Document(s) Ferritin [Mass/volume] in Serum or Plasma 293.9 ng/mL 5.0 - 244 H [facility] ID Date Data Source [id number] 08/25/2020 09:09:00 AM [facility] Name Value Range Interpretation Code Description Data Sanjuana rce(s) Supporting Document(s) Magnesium [Mass/volume] in Serum or Plasma 1.6 MG/DL 1.7 - 2.2 L [facility] ID Date Data Source [id number] 08/25/2020 09:09:00 AM [facility] Name Value Range Interpretation Code Description Data Sanjuana rce(s) Supporting Document(s) CVE PANEL [facility] al LIPID PANEL Cholesterol [Mass/volume] in Serum or Plasma 188 MG/DL 131 - 200 [facility] Deprecated Triglyceride [Mass/volume] in Serum or Plasma 161 MG/DL 3 5 - 160 H [facility] HDL 38 MG/DL 29 - 86 [facility] Cholesterol in LDL [Mass/volume] in Serum or Plasma by Direc t assay 125 mg/dL 65 - 175 [facility] Cholesterol.total/Cholesterol in HDL [Mass Ratio] in Serum o r Plasma 4.9 3.4 - 4.9 [facility] LDL/HDL 3.29 1.00 - 3.55 [facility] ital CVE RISK CHOL/HDL LDL/HDLMEN: 1/2 AVERAGE 3.43 1.00 AVERAGE 4.97 3.55 2X AVERAGE 9.55 6.25 3X AVERAGE 23.99 7.99WOMEN: 1/2 AVERAGE 3.27 1.47 AVERAGE 4.44 3.22 2X AVERAGE 7.05 5.03 3X AVERAGE 11.04 6.14 ID Date Data Source [id number] 08/25/2020 09:09:00 AM EST [facility] Name Value Range Interpretation Code Description Data Sanjuana rce(s) Supporting Document(s) COMPREHENSIVE METABOLIC PANEL [facility] COMPREHENSIVE METABOLIC PANEL Sodium [Moles/volume] in Serum or Plasma 136 mEq/L 134 - 153 [facility] Potassium [Moles/volume] in Serum or Plasma 4.7 mEq/L 3.6 - 5.0 [facility] Chloride [Moles/volume] in Serum or Plasma 99 mEq/L 98 - 107 [facility] Carbon dioxide, total [Moles/volume] in Serum or Plasma 27 MEQ/L 22 - 30 [facility] Glucose [Mass/volume] in Serum or Plasma 189 MG/DL 70 - 99 H [facility] BUN 24 MG/DL 7 - 21 [facility] Creatinine [Mass/volume] in Serum or Plasma 0.7 MG/DL 0.7 - 1.5 [facility] BUN/CREAT 34 8 - 27 H [facility] Protein [Mass/volume] in Serum or Plasma 6.4 G/DL 6.3 - 8.2 [facility] Albumin [Mass/volume] in Serum or Plasma 3.3 G/DL 3.9 - 5.0 L [facility] Globulin [Mass/volume] in Serum by calculation 3.1 GM/DL 2.4 - 3.2 [facility] A/G RATIO 1.1 0.8 - 2.0 [facility] Calcium [Mass/volume] in Serum or Plasma 9.0 MG/DL 8.4 - 10.2 [facility] Bilirubin.total [Mass/volume] in Serum or Plasma <0.7 MG/DL 0.2 - 1.3 [facility] Alkaline phosphatase [Enzymatic activity/volume] in Serum or Plasma 71 U/L 38 - 126 [facility] Aspartate aminotransferase [Enzymatic activity/volume] in Serum or Plasma 25 U/L 5 - 40 [facility] Alanine aminotransferase [Enzymatic activity/volume] in Seru m or Plasma 23 U/L 7 - 56 [facility] Anion gap 3 in Serum or Plasma 10.0 mmol/L 8.0 - 16.0 [facility] AGE 65 yrs [facility] NON-AA GFR >60 mL/min [facility] AFR AMER GFR >60 mL/min [facility] Male GFR In terprentation 20-49 yrs >60 mL/min Normal 50-59 yrs >56 mL/min Normal 60-69 yrs >49 mL/min Normal 70-79yrs >42 mL/min Normal 80 and above >35 mL/min Normal Female GFR Interpretation 20-39 yrs >60 mL/min Normal 40-49 yrs >58 mL/min Normal 50-59 yrs >51 mL/min Normal 60-69 yrs >45 mL/min Normal 70-79 yrs >39 mL/min Normal 80 and above >32 mL/min Normal ID Date Data Source [id number] 08/25/2020 09:05:00 AM [facility] Name Value Range Interpretation Code Description Data Sanjuana rce(s) Supporting Document(s) Iron [Mass/volume] in Serum or Plasma 57 UG/DL 42 - 135 [facility] Iron binding capacity.unsaturated [Mass/volume] in Serum or Plasma 201 UG/DL 112 - 347 [facility] Iron binding capacity [Mass/volume] in Serum or Plasma 258 ug/dL 250 - 450 [facility] Iron saturation [Mass Fraction] in Serum or Plasma 22 % [facility] ID Date Data Source [id number] 08/24/2020 03:41:00 PM [facility] [place] [address] [id number] NOTE FOLLOW UPPATIENT NAME: DIANA OLIVERA PHYSICIAN: KAMLA LANIER, MDAUTHOR: Westley CARCAMO, Samantha. DATE: 08/11/20 MR#: [id number] NOTE DATE: 08/24/20 RM#: [id number] TIME: 1544 : 55Progress Note Follow UpSummaryNoted by nursing staff that patient's discharge is delayed due to lack of bowelmovement. Patient denies nausea or vomiting. Denies abdominal pain.Tolerating p.o. Already on bowel regimen. Off ered enema patient refused.Risk and benefit explained. Agreed to allow for rectal exam with possibilityof disimpaction if hard stool found. Rectal exam done at bedside withassistance from ERICA Arias. Rectal vault empty, minimal soft stool reached withfingertip. No evidence of fecal impaction on exam. Further bowel regimen pernursing home provider.DATE SIGNED: 08/24/20 Electronically SignedTIME SIGNED: 1544 ABBIE BECERRIL MD Name Value Range Interpretation Code Description Data Sanjuana rce(s) Supporting Document(s) ID Date Data Source [id number] 08/24/2020 01:21:[address] [id number] SUMMARYPATIENT NAME: DIANA OLIVERA MR#: [id number] PHYSICIAN: KAMLA LANIER MDAUTHOR: Abbie Becerril MD DATE: 08/11/20 RM#: [id number] DATE: : 55Summary of HospitalizationReason for AdmissionSOBHospital [id number] male with underlying medical history type 2 diabetes, atrialfibrillation, hypertension [facility] with[facility]s of dyspnea and was obtunded initially but turned around and wasalert and oriented x3. Patient was also diaphoretic and his blood pressureswere initially 90s over 50s but with IV fluids it improved to 97/56. Fever of101.1. Lactic acid normal. Patient is a resident of senior living apparentlywas noted to have O2 sats in the 70s at the senior living. Patient was placedon 50% [facility]imask at [facility] with O2 sats 94 to 95%.Rapid COVID 19 test was positive, and inflammatory markers i.e. ferritin, LDH,CRP were elevated also D-dimer was elevated. Chest x-ray revealed bilateralpneumonia likely from COVID-19. Patient was given remdesivir, dexamethasone,ceftriaxone and azithromycin. Patient is on Eliquis for atrial fibrillation.Patient was recently treated at [facility] from 07/07 to 07/14/2021 withacute on chronic respiratory failure due to suspected COVID 19 viral pneumonia,hospital course was also complicated by staph hominis bacteremia 2 out of 4bottles was treated with 14-day course of IV vancomycin per ID recommendations.[facility] transfer patient to [facility] becausehe did not have any respiratory therapy services.Patient treated with remdesivir, dexamethasone, Hospital course complicatedwith hypoglycemia and hyperglycemia. Insulin doses adjusted. Wound careconsulted for diabetic foot ulcer. Patient treated for MRSA pneumonia.Completed course of IV vancomycin. Anticoagulation continued. Patientinitially on Vapotherm. O2 requirement progressively improved. Patientcurrently on no oxygen. With normal saturation. Tolerating p.o. Comfortable.No respiratory distress. Ready for discharge back to senior living. COVID-19test negative on August 24, 2020.Diagnoses (Current Visit)Problem List1. Pneumonia due to COVID-19 virus2. Acute respiratory failure with hypoxia3. Diabetes4. Diabetic foot ulcers5. Afib6. HTN (hypertension)7. MRSA (methicillin resistant staph aureus) culture positiveDiagnoses (Other)Past Pertinent History1. Pneumonia due to COVID-19 virus2. Acute respiratory failure with hypoxia3. Diabetes4. Diabetic foot ulcers5. Afib6. HTN (hypertension)7. MRSA (methicillin resistant staph aureus) culture positivePatient's Discharge Co nditionVital SignsVital Signs-LastResult Date TimeB/P 116/70 08/24 0831Pulse 85 08/24 0831Pulse Ox 96 08/24 0530O2 Delivery Nasal cannula 08/24 0530O2 Flow Rate 1 08/24 0530Temp 98.1 08/24 0530Resp 18 08/24 0530Patient's Discharge ConditionDischarge Date 08/24/20Discharge Conditon stableDischarge Dispositionnursing homePhysical ExaminationGeneral Appearance no acute distress, afebrile, alert, awake, conversantHead atraumatic, normocephalicENT moist mucosal membranesNeck no JVD, suppleCardiovascular normal heart sounds, irregularly irregularRespiratory clear to auscultation, no distress, aerating well, symmetricexpansionAbdomen soft, non-tender, no distention, no organomegalyUrinary no bladder distention, no flank painGenitourinary (male) no flank painExtremities no edema, Right diabetic foot leg ulcers skin break down onbilateral lower legsMuscoskeletal full range of motion, normal inspectionNeurological alert, oriented x 3, normal cerebellar functio, normal speech, nomotor deficits, no sensory deficitsSkin AssessmentSkin dry, intactLymphatic no lymphadenopathyPsych/Mental Status normal affect, normal judgementPatient/Family InstructionsPrescriptionsContinue taking these medications:AMLODIPINE BESYLATE (AMLODIPINE) 10 MG [id number] MILLIGRAM Orally DAILYQty = 0BACLOFEN (BACLOFEN*) 10 MG [id number] MILLIGRAM Orally THREE TIMES DAILYBISACODYL (Bisacodyl) 10 MG SUPP.RECT10 MILLIGRAM Rectally DAILY NEEDED as needed for ConstipationQty = 0APIXABAN (ELIQUIS*) 2.5 MG TABLET2.5 MILLIGRAM Orally TWICE DAILYQty = 0GABAPENTIN (GABAPENTIN) 600 MG [id number] MILLIGRAM Orally THREE TIMES DAILYQty = 0Zinc Sulfate (Zinc Sulfate) 220 MG [id number] MILLIGRAM Orally DAILYQty = 0PANTOPRAZOLE SODIUM* (Protonix*) 40 MG TABLET.DR40 MILLIGRAM Orally DAILYQty = 30SALMETEROL (Serevent Disk*) 50 MCG BLST.W.DEV0 MICROGRAM Inhalation TWICE DAILYQty = 60Instructions:1 puffAMIODARONE HCL (PACERONE*) 200 MG [id number] MILLIGRAM Orally TWICE DAILYQty = 60DULOXETINE HCL (DULOXETINE HCL) 60 MG CAPSULE.DR60 MILLIGRAM Orally DAILY as needed for NERVE PAIN, DEPRESSIONQty = 30OXYCODONE IMMEDIATE RELEASE (Oxyir*) 5 MG TABLET5 MILLIGRAM Orally EVERY 6 HOURS NEEDED as needed for PainQty = 60Instructions:Max daily dose=IPRATROPIUM-ALBUTEROL (Iprat-Albut 0.5-3(2.5) MG/3 Ml) 3 ML AMPUL.NEB3 MILLILITERS Inhalation EVERY 4 HOURS as needed for COPDQty = 90Ascorbic Acid* (Vitamin C*) 500 MG [id number] MILLIGRAM Orally TWICE DAILYQty = 60ASPIRIN (Aspirin EC) 81 MG TABLET.DR81 MILLIGRAM Orally DAILYCHOLECALCIFEROL (Vitamin D*) 1,000 UNIT TABLET1,000 UNIT Orally DAILYDOCUSATE SODIUM (COLACE) 100 MG [id number] MILLIGRAM Orally THREE TIMES DAILYFENTANYL* (Duragesic patch*) 1 EACH PATCH.YD11683 MICROGRAM Topically R7ZBeochfwajfw/Dextromethorphan (Robitussin Chghw-Ycths-Exte Dm) 1 EACH [id number] MILLIGRAM Orally TWICE DAILYHUMALOG (HUMALOG) 100 UNIT/1 ML VIAL1 UNITS Subcutaneous BEFORE MEALS as needed for SLIDING SCALELactobacillus* (Bacid Caplet*) 1 EACH TABLET1 CAPSULE Orally THREE TIMES DAILY WITH MEALSLATANOPROST (Xalatan*) 2.5 ML DROPS0 MILLILITERS Both Eyes AT BEDTIMEInstructions:1 DropLIDOCAINE (Lidoderm Patch) 1 EACH ADH..PATCH5 PERCENT Externally DAILYInstructions:APPLY TO LEFT HIPMagnesium Oxide (Magox 400) 400 MG [id number] MILLIGRAM Orally DAILYMetoprolol XL* (Toprol XL*) 50 MG TAB.ER.24H50 MILLIGRAM Orally DAILYMultivit,Ther Iron,Ca,FA & Min (Thera-M Caplet) 1 EACH TABLET1 TABLET Orally DAILYAlbuterol Sulfate (Proair Digihaler) 90 MCG AER.PW.BAS2 Puff Inhalation EVERY 4 HOURS, NEEDED as needed for SOBSennosides (Sen-O-Tab) 8.6 MG TABLET8.6 MILLIGRAM Orally TWICE DAILYStart taking the following new medications:DOXYCYCLINE MONOHYDRATE (Doxycycline Monohydrate) 100 MG [id number] MILLIGRAM Orally 0600,1800Qty = 6No RefillsCalcium With Vitamin D* (Oscal*) 1 EACH TABLET1 TABLET Orally TWICE DAILYQty = 60No RefillsThe following medications have been changed:Old:Insulin Detemir (Levemir) (Levemir*) 100 UNIT/1 ML VIAL20 UNIT Subcutaneous TWICE DAILYQty = 10New:Insulin Detemir (Levemir) (Levemir*) 100 UNIT/1 ML VIAL16 UNIT Subcutaneous TWICE DAILYQty = 10Discharge Activity: As toleratedDischarge diet: Consistent Carbohydrate, 2Gm Sodium, High protein/High calorieFollow-upFollow up with your Primary care physician in 3 days. Check CBC, CMP withprimary care provider in 3 days. Further adjustment of diabetic regimen perprimary care provider at the senior living.Return to hospital if symptoms worsen. Pressure ulcer precautionTime spent by provider to complete discharge > 30 minutesDATE SIGNED: 08/24/20 Electronically SignedTIME SIGNED: 1333 ABBIE BECERRIL MD Name Value Range Interpretation Code Description Data Sanjuana rce(s) Supporting Document(s) ID Date Data Source [id number] 08/24/2020 01:18:00 PM EST [address] [id number] NAME: DIANA OLIVERA#: [id number] PHYSICIAN: TRELL ARREOLA #: [id number] ADM. DATE: 08/11/20PATIENT : 55 DISCH. DATE: [50}DISCHARGE SUMMARYMedical Discharge PlanPersonal Care InstructionsDischarge Activity: As toleratedDischarge diet: Consistent Carbohydrate, 2Gm Sodium, High protein/High calorieProblem ListMedical ProblemsAcute respiratory failure with hypoxiaAfibChronic painCOPD (chronic obstructive pulmonary disease)D ebilityDepressionDiabetesDiabetic foot ulcersGERD (gastroesophageal reflux disease)GlaucomaHTN (hypertension)MRSA (methicillin resistant staph aureus) culture positivePneumonia due to COVID-19 virusVitamin D deficiencyFollow Up CareFollow Up:Follow up with your Primary care physician in 3 days. Check CBC, CMP withprimary care provider in 3 days. Further adjustment of diabetic regimen perprimary care provider at the senior living.Return to hospital if symptoms worsen. Pressure ulcer precautionPriority ItemsUrgent/Important items that need to be addressed at primary care follow-upappointmentFollow up with your Primary care physician in 3 days. Check CBC, CMP withprimary care provider in 3 days. Further adjustment of diabetic regimen perprimary care provider at the senior living.Return to hospital if symptoms worsen. Pressure ulcer precautionDischarge InformationDISCHARGE INFORMATION* [facility] and allowing us toserve you* Our Goal is to provide the highest quality of care.* This discharge information is to help you better understand your diagnosisand medication* Avoid taking zcqw-vol-brvwbyu medicines unless approved by your physician.* Take your medications as prescribed. DO NOT stop any medications unlessapproved first* Weigh yourself daily. Report any gain of 5 lbs in a week* 24 Hour Crisis HOTLINE available: Call Reachout at _ SMOKING CESSATION* Smoking is dangerous to your health. It delays the healing process, andworks against your medications. Not smoking will improve your health* Our hospital participates with the Opt-to-Quit program. You will be contactedafter discharge by the [facility] Smoker's Quitline for support with tobaccocessation. You have the option once contacted to refuse this service.* You can also go online to www.[employer]. Free nicotine replacementsare available Attention* You should contact your follow up Physician as it is important that you lethim or her check you and report any new or remaining problems. If yourcondition worsens, follow up with your provider or visit our EmergencyDepartment. If you received pain medication, anxiety medications, musclerelaxants, or any medication that causes drowsiness, you cannot operatemachinery, power tools, or drive.END ENDDICT: 08/24/20 1318 Electronically SignedTRANS:08/24/201317 ABBIE BECERRIL MDTRANS BY:[email or web address] SIGNED:08/24/20TIME SIGNED: 1321REPORT COPY TO: Name Value Range Interpretation Code Description Data Sanjuana rce(s) Supporting Document(s) ID Date Data Source [id number] 08/24/2020 08:05:00 AM EST [facility] Name Value Range Interpretation Code Description Data Sanjuana rce(s) Supporting Document(s) FGLU 152 mg/dL 70-110 [facility] ID Date Data Source [id number] 08/24/2020 06:43:00 AM EST [facility] Name Value Range Interpretation Code Description Data Sanjuana rce(s) Supporting Document(s) COVID-19, DOMINICK NEGATIVE NEGATIVE [facility] Methodology: Nucleic Acid AmplificationN egative results should be treated as presumptive and, ifinconsistent with clinical signs and symptoms or necessaryfor patient management, should be tested with differentauthorized or cleared molecular tests. Negative results donot preclude SARS-CoV-2 infection and should not be used asthe sole basis for patient management decisions. Negativeresults should be considered in the context of a patient'srecent exposures history and the presence of clinical signsand symptoms consistent with COVID-19.The ID NOW COVID-19 test is only for use under the Food andDrug Administration's Emergency Use Authorization. ID Date Data Source [id number] 08/24/2020 06:46:00 AM EST [facility] Name Value Range Interpretation Code Description Data Sanjuana rce(s) Supporting Document(s) C-REACTIVE PROT 2.33 mg/dL 0.0-0.49 [facility] ID Date Data Source [id number] 08/24/2020 06:46:00 AM EST [facility] Name Value Range Interpretation Code Description Data Sanjuana rce(s) Supporting Document(s) MAGNESIUM 1.8 mg/dL 1.6-2.6 [facility] ID Date Data Source [id number] 08/24/2020 06:46:00 AM EST [facility] Name Value Range Interpretation Code Description Data Sanjuana rce(s) Supporting Document(s) DENILSON 3.4 mg/dL 2.5-4.5 [facility] ID Date Data Source [id number] 08/24/2020 06:46:00 AM EST [facility] Name Value Range Interpretation Code Description Data Sanjuana rce(s) Supporting Document(s) GLU 158 mg/dL 70-110 [facility] Patients taking Sulfasalazine may have f alsely depressedGlucose levels. Patients taking Sulfapyridine may havefalsely elevated Glucose levels. Patients should be drawnfor Glucose before the initial administration of eitherdrug. BUN 19 mg/dL 7-23 [facility] CRE 0.668 mg/dL 0.500-1.300 [facility] GFR > 60 mL/min [facility] CHLORIDE 105 mmol/L 99-110 [facility] NA 140 mmol/L 136-147 [facility] POTASSIUM 4.8 mmol/L 3.5-5.1 [facility] TCO2 26 mmol/L 20-33 [facility] ANION GAP 13.8 10.0-20.0 [facility] CA 8.3 mg/dL 8.3-10.7 [facility] ALKALINE PHOS 77 U/L 45-117 [facility] TP 5.9 g/dL 6.0-7.8 [facility] ALB 2.4 g/dL 3.5-5.0 [facility] ESRD Dialysis patient Albumin reference range: 2.9-4.4 g/dL GL 3.5 g/dL 2.3-3.5 [facility] A/G 0.7 1.0-2.5 [facility] T. BILIRUBIN 0.3 mg/dL 0.1-1.1 [facility] The [employer]ension [place] Total Bilirubin is n ot recommended forpatients undergoing treatment with eltrombopag (Promacta)due to the potential for falsely elevated results. ALTI 30 U/L 6-54 [facility] Patients taking Sulfasalazine and/or Sul fapyridine may havefalsely depressed ALT levels. Patients should be drawn forALT before the initial administration of either drug. AST 29 U/L 8-40 [facility] Patients taking Sulfasalazine and/or Sul fapyridine may havefalsely depressed AST levels. Patients should be drawn forAST before the initial administration of either drug. ID Date Data Source [id number] 08/24/2020 05:48:00 AM EST [facility] Name Value Range Interpretation Code Description Data Sanjuana rce(s) Supporting Document(s) WBC 13.12 x10E3/uL 4.0-10.5 [facility] RBC 4.89 x10E6/uL 4.70-6.00 [facility] Hemoglobin 11.9 g/dL 14.0-18.0 [facility] Hematocrit 39.4 % 42.0-52.0 [facility] MCV 80.6 fL 81.0-99.0 [facility] MCH 24.3 pg 27.0-31.0 [facility] MCHC 30.2 g/dL 32.7-35.6 [facility] RDW 19.2 % 11.5-14.0 [facility] Platelet count 321 x10E3/uL 150-450 [facility] MPV 10.1 fl 6.9-9.5 [facility] Neutrophils 68.8 % 34-64 [facility] Lymphocytes 18.4 % 25-45 [facility] Monocytes 9.9 % 1.7-10.6 [facility] Eosinophils 0.8 % 0.4-7.0 [facility] Basophils 0.7 % 0.1-2.0 [facility] Imm. Gran. 1.4 % 0.1-2.0 [facility] Abs. Neutro. 9.01 x10E3/uL 1.2-7.6 [facility] Abs. Lymph. 2.42 x10E3/uL 1.0-3.5 [facility] Abs. Stokes. 1.30 x10E3/uL 0.1-1.0 [facility] Abs. Eosin. 0.11 x10E3/uL 0.1-0.7 [facility] Abs. Baso. 0.09 x10E3/uL 0.0-0.1 [facility] Abs. Imm. Gran. 0.19 x10E3/uL 0.0-0.1 [facility] ANRBC% 0 % 0 [facility] ID Date Data Source [id number] 08/24/2020 12:00:00 AM EST [facility] Name Value Range Interpretation Code Description Data Sanjuana rce(s) Supporting Document(s) SARS-CoV2 Rapid PCR Negative [facility] This lab was ordered by [facility] and reported by [facility]. ID Date Data Source [id number] 08/24/2020 03:21:00 AM EST [facility] Name Value Range Interpretation Code Description Data Sanjuana rce(s) Supporting Document(s) FGLU 290 mg/dL 70-110 [facility] ID Date Data Source [id number] 08/23/2020 04:54:00 PM EST [facility] Name Value Range Interpretation Code Description Data Sanjuana rce(s) Supporting Document(s) FGLU 204 mg/dL 70-110 [facility] ID Date Data Source [id number] 08/23/2020 02:55:00 PM EST [facility] Exam Number: [id number] OF EXAMINATIO N: 08/23/2020 7:38 ESTCHEST SINGLE VIEWHISTORY: Follow-up pneumoniaTECHNIQUE: Single frontal radiograph of chestCOMPARISON: No prior examinations are available for comparisonFINDINGS:Mediastinum and cardiac silhouette are grossly normal for portabletechnique. Lung fatiam and straight chronic appearing interstitialchanges. Subtle residual airspace disease in the left base cannot beexcluded. No discrete focal consolidation, effusion, or pneumothorax.IMPRESSION:Subtle residual airspace disease at the left base cannot be excluded.No prior examination available for comparison.Electronically signed in PS360 by: Raghav Albrecht M.D. 08/23/2020 10:05EST Reported By: - Raghav Romero M.D. Signed By: Raghav Romero M.D. Name Value Range Interpretation Code Description Data Sanjuana rce(s) Supporting Document(s) ID Date Data Source [id number] 08/23/2020 11:51:00 AM EST [facility] [address] [id number] NOTEPATIENT NAME: DIANA OLIVERA PHYSICIAN: KAMLA LANIER, MDAUTHOR: Aric Maxwell. DATE: 08/11/20 MR#: [id number] NOTE DATE: 08/23/20 RM#: [id number] TIME: 1200 : 55SubjectiveEvents Since Last EntryPatient seen and examined today. Chart reviewed. Patient is doing welloverall in regards to his COVID-19. Patient completed 10 days of IV vancomycindue to MRSA in sputum. Blood cultures are negative. Chest x-ray is pendingfor a.m. This will need follow-up. Our plan is to discharge him back to [facility] on oral antibiotics. Patient has had labile blood sugars. Icontinue further adjustment of long-acting insulin as well as short. Patienthas no respiratory complaints. He is feeling well.Review of SystemsSystems reviewed and negative Constitutional, Integumentary, Eyes, ENT,Respiratory, Cardiovascular, GI, , Musculoskeletal, Jeremías, Endocrine,Neurology, Psych, Allergy/ImmunologyObjectiveVital SignsVital Signs-24 HRS02/08/229 2112 2115 2155 0638Temp 98.2 97.8 97.9Pulse 98 90 86 91Resp 20 18 18B/P 122/78 120/71 114/71 115/66B/P MeanPulse Ox 96 92 96O2 Delivery Nasal cannula Nasal cannulaO2 Flow Rate 1L 1QlD707/08/2359 1001 1001TempPulse 90RespB/P 112/66 112/66 112/66B/P MeanPulse OxO2 DeliveryO2 Flow UzipPlU3Tsgwgt/OutputIntake/Output Summary 24 hours/06 1900 / 0700Intake Total 2370Output Total 2850Balance -480Intake, IV 650Intake, Oral 1720Output, Urine 2850Current MedicationsInsulin Detemir (Levemir) 12 UNIT DAILY SUBCUTDoxycycline Hyclate (Doxycycline Hyclate) 100 MG 0600,1800 POOxycodone HCl (Oxyir) 5 MG Q6HPRN PRN PODocusate Sodium (Colace) 100 MG BID POSenna (Senokot) 2 TAB QHSPRN PRN POCalcium/Vitamin D (Oscal) 1 TAB BID POLatanoprost (Xalatan) 0 QHS BOTHEYESFentanyl (Duragesic) 50 MCG Q72H TOPMiscellaneous (Patch off) 1 PAT Q72H NAAmlodipine Besylate (Norvasc) 10 MG DAILY PODuloxetine HCl (Cymbalta) 60 MG DAILY POMagnesium Oxide (Magox) 400 MG DAILY POMultivitamins (Multivitamin) 1 TAB DAILY POPantoprazole Sodium (Protonix) 40 MG DAILY POTiotropium Bacliff (Spiriva) 1 puffDAILY INHAlbuterol Sulfate (Ventolin) 1 PUFFBID INHAmiodarone HCl (Cordarone) 200 MG BID POApixaban (Eliquis) 5 MG BID POAscorbic Acid (Vitamin C) 500 MG BID POInsulin Detemir (Levemir) 20 UNIT QHS SUBCUTSodium Chloride (Saline Flush Syr(5ML)) 5 ML Q12H IVInsulin Aspart (Humalog Insulin) Low dose sliding scaleAC MEAL SUBCUTBaclofen (Lioresal) 10 MG TID POGabapentin (Neurontin) 300 MG TID POGlucose (Insta-Glucose) 15 GM DAILY NEEDED PRN POSodium Chloride (Saline Flush Syr(5ML)) 5 ML QIDPRN PRN IVExamGeneral Appearance no acute distress, afebrile, alert, awake, conversantHead atraumatic, normocephalicENT moist mucosal membranesNeck no JVD, suppleCardiovascular normal heart sounds, irregularly irregularRespiratory clear to auscultation, no distr ess, aerating well, symmetricexpansion, on oxygenAbdomen soft, non- tenderGenitourinary (male) no flank painUrinary no bladder distention, no flank painExtremities no edema, Right diabetic foot leg ulcers skin break down onbilateral lower legsMuscoskeletal full range of motion, normal inspectionNeurological alert, oriented x 3, normal cerebellar functio, normal speech, nomotor deficits, no sensory deficitsSkin AssessmentSkin dry, warm, Lower extremity wrapped. Dry skin bilaterally.Lymphatic no lymphadenopathyPsych/Mental Status normal affect, normal judgementResultsLaboratory DataRecent Labs-24 hours08/22 1656 2130 0614ChemistryPOC Glucose (70 - 110 mg/dL) 219 H 118 H 231 H 68 LResults Reviewed labs reviewedAssessment/PlanProblem List1. Pneumonia due to COVID-19 virusA&PContinue inhalers oxygen as required. Completed course of remdesivir.Completed steroids. Continue doxycycline. Incentive spirometer.2. Acute respiratory failure with hypoxiaA&PMonitor. O2 evaluations as required.3. DiabetesA&PPatient hypoglycemic this morning. Levemir decreased. Continue sliding scaleinsulin. Monitor blood sugar4. Diabetic foot ulcersA&PWound care following. Dressings completed5. AfibA&PContinue amiodarone and Eliquis6. HTN (hypertension)A&PContinue Norvasc, lisinopril7. MRSA (methicillin resistant staph aureus) culture positiveA&P Completed 10 days of IV vancomycin. We will continue doxycycline. Suggesttotal course of therapy 14 to 21 days. Await chest x-ray in a.m.8. DepressionA&PContinue Cymbalta9. Chronic painA&PContinue Cymbalta, fentanyl patch, oxycodone. Continue baclofen. Continuegabapentin. He was placed on bowel regimen. He will be given a dose oflactulose today as he reports continued constipation. Senna will be giventonight.10. GlaucomaA&PContinue shwnavvnkln19. Vitamin D deficiencyA&PContinue vitamin D axmhryjxtu26. DebilityA&PWill need to continue senior living placement as previous. Repeat Covid testingfor 08/24/20 am.13. GERD (gastroesophageal reflux disease)A&PContinue PPI14. COPD (chronic obstructive pulmonary disease)A&PContinue inhalers, oxygen as needed wean O2 as needed. Further evaluations foroxygen as required.Additional NotesWill repeat Monday morning as his labs have not changed significantly. He hasremained afebrile. Leukocytosis is suspected secondary to steroids and nowsignificantly improved since cessation.DVT prophylaxis covered with novel oral anticoagulantGI prophylaxis with PPITime spent 35 minutesWe will discharge back to [facility] if Covid negative. Otherwisepossible swing bed placement at [place].Resuscitation status Full codePlan discussed with patient, wifeCase discussed with hospice case manager, nursing staffDATE SIGNED: 08/23/20 Electronically SignedTIME SIGNED: 1200 ADAM SANABRIA Name Value Range Interpretation Code Description Data Sanjuana rce(s) Supporting Document(s) ID Date Data Source [id number] 08/23/2020 03:07:00 PM EST [facility] Name Value Range Interpretation Code Description Data Sanjuana rce(s) Supporting Document(s) FGLU 145 mg/dL 70-110 [facility] ID Date Data Source [id number] 08/23/2020 08:20:00 AM EST [facility] Name Value Range Interpretation Code Description Data Sanjuana rce(s) Supporting Document(s) FGLU 68 mg/dL 70-110 L [facility] ID Date Data Source [id number] 08/22/2020 11:53:00 PM EST [facility] Name Value Range Interpretation Code Description Data Sanjuana rce(s) Supporting Document(s) FGLU 231 mg/dL 70-110 [facility] ID Date Data Source [id number] 08/22/2020 09:50:00 PM EST [facility] Name Value Range Interpretation Code Description Data Sanjuana rce(s) Supporting Document(s) FGLU 118 mg/dL 70-110 [facility] ID Date Data Source [id number] 08/22/2020 06:49:00 PM EST [facility] Name Value Range Interpretation Code Description Data Sanjuana rce(s) Supporting Document(s) FGLU 219 mg/dL 70-110 [facility] ID Date Data Source [id number] 08/22/2020 12:34:00 PM EST [facility] [address] [id number] NOTEPATIENT NAME: DIANA OLIVERA PHYSICIAN: KAMLA LANIER MDAUTHOR: Aric Maxwell. DATE: 08/11/20 MR#: [id number] NOTE DATE: 08/22/20 RM#: [id number] TIME: 1239 : 55SubjectiveEvents Since Last EntryPatient seen and examined today. Chart reviewed. Patient is doing welloverall in regards to his COVID-19. Will require 10 days of IV vancomycin dueto MRSA in sputum. Our plan at this point is to complete the course of hisantibiotics here and discharge him back to the senior living. Patient had highblood sugar this morning in the 470 range. He was placed back on hispreviously hospital dosed long-acting insulin 20 units daily now that his diethas been liberalized. The dose is still half his home dosing as we are usingsliding scale coverage as well to cover his blood sugar. This will bemonitored throughout the day today and Levemir dosing increased as required.We will need to be careful given his recent hypoglycemia. No other newdevelopments. Patient is feeling well.Review of SystemsSystems reviewed and negative Constitutional, Integumentary, Eyes, ENT,Respiratory, Cardiovascular, GI, , Musculoskeletal, Jeremías, Endocrine,Neurology, Psych, Allergy/ImmunologyObjectiveVital SignsVital Signs-24 HRS02/08/211400 2112 2115 2200Temp 98.7 97.4Pulse 91 91 89Resp 18 19B/P 103/68 103/68 108/87B/P MeanPulse Ox 92 94O2 Delivery Nasal cannula Nasal cannula Nasal cannulaO2 Flow Rate 1L 1L 3UFnO407/06 02/ 02/ 02/805798 8662 0902 0902Temp 98.7Pulse 89 89Resp 17B/P 119/83 122/78 122/78 122/78B/P MeanPulse Ox 98O2 Delivery Nasal cannulaO2 Flow Rate 7GIgM7Vvdnmj/OutputIntake/Output Summary 24 hours02/05 1900 02/ 0700Intake Total 730Output Total 1250Balance -520Intake, IV 250Intake, Oral 480Output, Urine 1250Current MedicationsInsulin Detemir (Levemir) 20 UNIT DAILY SUBCUT (UNVr)Vancomycin HCl (Vancocin) 1,000 MG Q12H IVDocusate Sodium (Colace) 100 MG BID POSenna (Senokot) 2 TAB QHSPRN PRN POCalcium/Vitamin D (Oscal) 1 TAB BID POLatanoprost (Xalatan) 0 QHS BOTHEYESOxycodone HCl (Oxyir) 5 MG Q6HPRN PRN POFentanyl (Duragesic) 50 MCG Q72H TOPMiscellaneous (Patch off) 1 PAT Q72H NAAmlodipine Besylate (Norvasc) 10 MG DAILY PODuloxetine HCl (Cymbalta) 60 MG DAILY POLisinopril (Prin ivil,Zestril) 40 MG DAILY POMagnesium Oxide (Magox) 400 MG DAILY POMultivitamins (Multivitamin) 1 TAB DAILY POPantoprazole Sodium (Protonix) 40 MG DAILY POTiotropium Bacliff (Spiriva) 1 puffDAILY INHAlbuterol Sulfate (Ventolin) 1 PUFFBID INHAmiodarone HCl (Cordarone) 200 MG BID POApixaban (Eliquis) 5 MG BID POAscorbic Acid (Vitamin C) 500 MG BID POInsulin Detemir (Levemir) 20 UNIT QHS SUBCUTSodium Chloride (Saline Flush Syr(5ML)) 5 ML Q12H IVInsulin Aspart (Humalog Insulin) Low dose sliding scaleAC MEAL SUBCUTBaclofen (Lioresal) 10 MG TID POGabapentin (Neurontin) 300 MG TID POGlucose (Insta-Glucose) 15 GM DAILY NEEDED PRN POSodium Chloride (Saline Flush Syr(5ML)) 5 ML QIDPRN PRN IVExamGeneral Appearance no acute distress, afebrile, alert, awake, conversantHead atraumatic, normocephalicENT moist mucosal membranesNeck no JVD, suppleCardiovascular normal heart sounds, irregularly irregularRespiratory clear to auscultation, no distress, aerating well, symmetricexpansion, on oxygenAbdomen soft, non-tenderGenitourinary (male) no flank painUrinary no bladder distention, no flank painExtremities no edema, Right diabetic foot leg ulcers skin break down onbilateral lower legsMuscoskeletal full range of motion, normal inspectionNeurological alert, oriented x 3, normal cerebellar functio, normal speech, nomotor deficits, no sensory deficitsSkin AssessmentSkin dry, warmLymphatic no lymphadenopathyPsych/Mental Status normal affect, normal judgementResultsLaboratory DataRecent Labs-24 hours08/21 2139 0405 0607ChemistrySodium (136 - 147 mmol/L) 142Potassium (3.5 - 5.1 mmol/L) 4.7Chloride (99 - 110 mmol/L) 104Serum Bicarbonate (20 - 33 mmol/L) 32Anion Gap (10.0 - 20.0) 10.7BUN (7 - 23 mg/dL) 18Creatinine (0.500 - 1.300 mg/dL) 0.722Estimated GFR/1.73 m2 (mL/min) > 60Glucose (70 - 110 mg/dL) 116 HPOC Glucose (70 - 110 mg/dL) 323 H 200 H 168 HCalcium (8.3 - 10.7 mg/dL) 8.6Magnesium (1.6 - 2.6 mg/dL) 1.8Total Bilirubin (0.1 - 1.1 mg/dL) 0.3AST (8 - 40 U/L) 16ALT (6 - 54 U/L) 27Alkaline Phosphatase (45 - 117 U/L) 82Total Protein (6.0 - 7.8 g/dL) 5.7 LAlbumin (3.5 - 5.0 g/dL) 2.5 LGlobulin (2.3 - 3.5 g/dL) 3.2Albumin/Globulin Ratio (1.0 - 2.5) 0.8 LHematologyWBC (4.0 - 10.5 x10E3/uL) 13.98 HRBC (4.70 - 6.00 x10E6/uL) 4.92Hgb (14.0 - 18.0 g/dL) 12.4 LHct (42.0 - 52.0 %) 39.7 LMCV (81.0 - 99.0 fL) 80.7 LMCH (27.0 - 31.0 pg) 25.2 LMCHC (32.7 - 35.6 g/dL) 31.2 LRDW (11.5 - 14.0 %) 18.7 HPlt Count (150 - 450 x10E3/uL) 345MPV (6.9 - 9.5 fl) 9.9 HImmature Gran % (Auto) (0.1 - 2.0 %) 1.6Neut % (Auto) (34 - 64 %) 69.6 HLymph % (Auto) (25 - 45 %) 18.6 LMono % (Auto) (1.7 - 10.6 %) 9.1Eos % (Auto) (0.4 - 7.0 %) 0.9Baso % (Auto) (0.1 - 2.0 %) 0.2Abs Immat Gran (auto) (0.0 - 0.1 x10E3/uL) 0.23 HAbsolute Neuts (auto) (1.2 - 7.6 x10E3/uL) 9.73 HAbsolute Lymphs (auto) (1.0 - 3.5 x10E3/uL) 2.60Absolute Monos (auto) (0.1 - 1.0 x10E3/uL) 1.27 HAbsolute Eos (auto) (0.1 - 0.7 x10E3/uL) 0.12Absolute Basos (auto) (0.0 - 0.1 x10E3/uL) 0.03Nucleated RBC % (auto) (0 %) 0Results Reviewed labs reviewedAssessment/PlanProblem List1. Pneumonia due to COVID-19 virusA&PContinue inhalers oxygen as required. Completed course of remdesivir.Completed steroids.2. Acute respiratory failure with hypoxiaA&PAs above3. DiabetesA&PPatient hyperglycemic this morning. Levemir increased. Continue sliding scaleinsulin. Increase Levemir further as required. Liberalized diet yesterdaygiven hypoglycemia.4. Diabetic foot ulcersA&PWound care following.5. AfibA&PContinue amiodarone and Eliquis6. HTN (hypertension)A&PContinue Norvasc, lisinopril7. MRSA (methicillin resistant staph aureus) culture positiveA&PContinue vancomycin to complete 10-day course. Follow trough. Trough isstable and acceptable less than 20. Renal function also stable.8. DepressionA&PContinue Cymbalta9. Chronic painA&PContinue Cymbalta, fentanyl patch, oxycodone. Continue baclofen. Continuegabapentin. He was placed on bowel regimen.10. GlaucomaA&PContinue . Vitamin D deficiencyA&PContinue vitamin D [id number]. DebilityA&PWill need to continue senior living placement as previous. Repeat Covid testingfor 08/24/20 am.13. GERD (gastroesophageal reflux disease)A&PContinue PPI14. COPD (chronic obstructive pulmonary disease)A&PContinue inhalers, oxygen as neededAdditional NotesWill repeat Monday morning as his labs have not changed significantly. He hasremained afebrile. Leukocytosis is suspected secondary to steroids and nowsignificantly improved since cessation.DVT prophylaxis covered with novel oral anticoagulantGI prophylaxis with PPITime spent 35 minutesDisposition plan discharge after completion of antibiotics likely, will discusswith case management as this will be [facility] availability ofIV vancomy nicolasa and negative Covid testing priorResuscitation status Full codePlan discussed with patientCase discussed with hospice case manager, nursing staffDATE SIGNED: 08/22/20 Electronically SignedTIME SIGNED: 1239 ADAM SANABRIA Name Value Range Interpretation Code Description Data Sanjuana rce(s) Supporting Document(s) ID Date Data Source [id number] 08/22/2020 09:44:00 AM EST [facility] Name Value Range Interpretation Code Description Data Sanjuana rce(s) Supporting Document(s) FGLU 168 mg/dL 70-110 [facility] ID Date Data Source [id number] 08/22/2020 05:26:00 AM [facility] Name Value Range Interpretation Code Description Data Sanjuana rce(s) Supporting Document(s) MAGNESIUM 1.8 mg/dL 1.6-2.6 [facility] ID Date Data Source [id number] 08/22/2020 05:26:00 AM EST [facility] Name Value Range Interpretation Code Description Data Sanjuana rce(s) Supporting Document(s) GLU 116 mg/dL 70-110 [facility] Patients taking Sulfasalazine may have f alsely depressedGlucose levels. Patients taking Sulfapyridine may havefalsely elevated Glucose levels. Patients should be drawnfor Glucose before the initial administration of eitherdrug. BUN 18 mg/dL 7-23 [facility] CRE 0.722 mg/dL 0.500-1.300 [facility] GFR > 60 mL/min [facility] CHLORIDE 104 mmol/L 99-110 [facility] NA 142 mmol/L 136-147 [facility] POTASSIUM 4.7 mmol/L 3.5-5.1 [facility] TCO2 32 mmol/L 20-33 [facility] ANION GAP 10.7 10.0-20.0 [facility] CA 8.6 mg/dL 8.3-10.7 [facility] ALKALINE PHOS 82 U/L 45-117 [facility] TP 5.7 g/dL 6.0-7.8 [facility] ALB 2.5 g/dL 3.5-5.0 [facility] ESRD Dialysis patient Albumin reference range: 2.9-4.4 g/dL GL 3.2 g/dL 2.3-3.5 [facility] A/G 0.8 1.0-2.5 [facility] T. BILIRUBIN 0.3 mg/dL 0.1-1.1 [facility] [employer] [place] Total Bilirubin is n ot recommended forpatients undergoing treatment with eltrombopag (Promacta)due to the potential for falsely elevated results. ALTI 27 U/L 6-54 [facility] Patients taking Sulfasalazine and/or Sul fapyridine may havefalsely depressed ALT levels. Patients should be drawn forALT before the initial administration of either drug. AST 16 U/L 8-40 [facility] Patients taking Sulfasalazine and/or Sul fapyridine may havefalsely depressed AST levels. Patients should be drawn forAST before the initial administration of either drug. ID Date Data Source [id number] 08/22/2020 04:59:00 AM EST [facility] Name Value Range Interpretation Code Description Data Sanjuana rce(s) Supporting Document(s) WBC 13.98 x10E3/uL 4.0-10.5 [facility] RBC 4.92 x10E6/uL 4.70-6.00 [facility] Hemoglobin 12.4 g/dL 14.0-18.0 [facility] Hematocrit 39.7 % 42.0-52.0 [facility] MCV 80.7 fL 81.0-99.0 [facility] MCH 25.2 pg 27.0-31.0 L [facility] MCHC 31.2 g/dL 32.7-35.6 [facility] RDW 18.7 % 11.5-14.0 [facility] Platelet count 345 x10E3/uL 150-450 [facility] MPV 9.9 fl 6.9-9.5 [facility] Neutrophils 69.6 % 34-64 [facility] Lymphocytes 18.6 % 25-45 [facility] Monocytes 9.1 % 1.7-10.6 [facility] Eosinophils 0.9 % 0.4-7.0 [facility] Basophils 0.2 % 0.1-2.0 [facility] Imm. Gran. 1.6 % 0.1-2.0 [facility] Abs. Neutro. 9.73 x10E3/uL 1.2-7.6 [facility] Abs. Lymph. 2.60 x10E3/uL 1.0-3.5 [facility] Abs. Stokes. 1.27 x10E3/uL 0.1-1.0 [facility] Abs. Eosin. 0.12 x10E3/uL 0.1-0.7 [facility] Abs. Baso. 0.03 x10E3/uL 0.0-0.1 [facility] Abs. Imm. Gran. 0.23 x10E3/uL 0.0-0.1 [facility] ANRBC% 0 % 0 [facility] ID Date Data Source [id number] 08/21/2020 10:24:00 PM EST [facility] Name Value Range Interpretation Code Description Data Sanjuana rce(s) Supporting Document(s) FGLU 200 mg/dL 70-110 [facility] ID Date Data Source [id number] 08/21/2020 08:50:00 PM EST [facility] Name Value Range Interpretation Code Description Data Sanjuana rce(s) Supporting Document(s) FGLU 323 mg/dL 70-110 [facility] ID Date Data Source [id number] 08/21/2020 03:45:00 PM EST [facility] Name Value Range Interpretation Code Description Data Sanjuana rce(s) Supporting Document(s) FGLU 133 mg/dL 70-110 [facility] ID Date Data Source [id number] 08/21/2020 11:34:00 AM TARIQ de guzman [facility] [place], [place] [id number] NOTEPATIENT NAME: DIANA OLIVERA PHYSICIAN: KAMLA LANIER MDAUTHOR: Aric Maxwell. DATE: 08/11/20 MR#: [id number] NOTE DATE: 08/21/20 RM#: [id number] TIME: 1153 : 55SubjectiveEvents Since Last EntryPatient seen and examined today. Chart reviewed. Patient is doing welloverall in regards to his COVID-19. Will require 10 days of IV vancomycin dueto MRSA in sputum. Our plan at this point is to complete the course of hisantibiotics here and discharge him back to the senior living. Patient had lowblood glucose this morning at 62 and his Levemir was held this am and reducedfor tomorrow to 10units QD. His blood sugar came up with a snack into [id number]. Patient's vital signs are stable but B/P borderline low this am. He wasencouraged to drink well. I have ordered 1L NS @ 80cc/hr x 1L total. Willmonitor today.Review of SystemsSystems reviewed and negative Constitutional, Integumentary, Eyes, ENT,Respiratory, Cardiovascular, GI, , Musculoskeletal, Jeremías, Endocrine,Neurology, Psych, Allergy /ImmunologyObjectiveVital SignsVital Signs-24 HRS02/04 02/ 02/350213 4698 2143 2200Temp 97.9 98.2Pulse 95 88 89Resp 18 18B/P 101/57 101/56 101/56B/P MeanPulse Ox 94 95O2 Delivery Nasal cannula Nasal cannula Nasal cannulaO2 Flow Rate 1L 1 8AEaI981/05 08/21384066 2063 0948Temp 97.7Pulse 92 92Resp 18B/P 96/58 104/68 104/68B/P MeanPulse Ox 98O2 Delivery Nasal cannulaO2 Flow Rate 3RqC8Luktgp/OutputIntake/Output Summary 24 hours02/04 1900 02/05 0700Intake Total 2180Output Total 2600Balance -420Intake, IV 450Intake, Oral 1730Output, Urine 2600Current MedicationsInsulin Detemir (Levemir) 10 UNIT DAILY SUBCUTSodium Chloride (SODIUM CHLORIDE 0.9%) 1,000 ML .[id number] IVVancomycin HCl (Vancocin) 1,000 MG Q12H IVDocusate Sodium (Colace) 100 MG BID POSenna (Senokot) 2 TAB QHSPRN PRN POCalcium/Vitamin D (Oscal) 1 TAB BID POLatanoprost (Xalatan) 0 QHS BOTHEYESOxycodone HCl (Oxyir) 5 MG Q6HPRN PRN POFentanyl (Duragesic) 50 MCG Q72H TOPMiscellaneous (Patch off) 1 PAT Q72H NAAmlodipine Besylate (Norvasc) 10 MG DAILY PODuloxetine HCl (Cymbalta) 60 MG DAILY POLisinopril (Prinivil,Zestril) 40 MG DAILY POMagnesium Oxide (Magox) 400 MG DAILY POMultivitamins (Multivitamin) 1 TAB DAILY POPantoprazole Sodium (Protonix) 40 MG DAILY POTiotropium Bacliff (Spiriva) 1 puffDAILY INHAlbuterol Sulfate (Ventolin) 1 PUFFBID INHAmiodarone HCl (Cordarone) 200 MG BID POApixaban (Eliquis) 5 MG BID POAscorbic Acid (Vitamin C) 500 MG BID POInsulin Detemir (Levemir) 20 UNIT QHS SUBCUTSodium Chloride (Saline Flush Syr(5ML)) 5 ML Q12H IVInsulin Aspart (Humalog Insulin) Low dose sliding scaleAC MEAL SUBCUTBaclofen (Lioresal) 10 MG TID POGabapentin (Neurontin) 300 MG TID POGlucose (Insta-Glucose) 15 GM DAILY NEEDED PRN POSodium Chloride (Saline Flush Syr(5ML)) 5 ML QIDPRN PRN IVExamGeneral Appearance no acute distress, afebrile, alert, awake, conversantHead atraumatic, normocephalicENT moist mucosal membranesNeck no JVD, suppleCardiovascular normal heart sounds, irregularly irregularRespiratory clear to auscultation, no distress, aerating well, symmetricexpansion, on oxygenAbdomen soft, non-tenderGenitourinary (male) no flank painUrinary no bladder distention, no flank painExtremities no edema, Right diabetic foot leg ulcers skin break down onbilateral lower legsMuscoskeletal full range of motion, normal inspectionNeurological alert, oriented x 3, normal cerebellar functio, normal speech, nomotor deficits, no sensory deficitsSkin AssessmentSkin dry, intact, warmLymphatic no lymphadenopathyPsych/Mental Status normal affect, normal judgementResultsLaboratory DataRecent Labs-24 hours08/20 1636 2029 0636 0827ChemistryPOC Glucose (70 - 110 mg/dL) 313 H 78 188 H 62 LToxicologyVancomycin Trough (5 - 10 ug/mL) 19.2 HResults Reviewed labs reviewedAssessment/PlanProblem List1. Pneumonia due to COVID-19 virusA&PContinue inhalers oxygen as required. Completed course of remdesivir.Completed steroids.2. Acute respiratory failure with hypoxiaA&PAs above3. DiabetesA&PPatient hypoglycemic this morning. Hold Levemir this a.m. decreased to 10units daily tomorrow. Liberalize diet. Home dosing is 20 twice dailyaccording to the records. Monitor glucose closely.4. Diabetic foot ulcersA&PWound care following.5. AfibA&PContinue amiodarone and Eliquis6. HTN (hypertension)A&PContinue Norvasc, lisinopril hold this a.m. for borderline BP give gentle IVfluid.7. MRSA (methicillin resistant staph aureus) culture positiveA&PContinue vancomycin to complete 10-day course. Follow trough. Trough isstable and acceptable less than 20. Renal function also stable.8. DepressionA&PContinue Cymbalta9. Chronic painA&PContinue Cymbalta, fentanyl patch, oxycodone. Continue baclofen. Continuegabapentin. He was placed on bowel regimen. Milk of magnesia x1 today.10. GlaucomaA&PContinue [id number]. Vitamin D deficiencyA&PContinue vitamin D [id number]. DebilityA&PWill need to continue senior living placement as previous.13. GERD (gastroesophageal reflux disease)A&PContinue PPI14. COPD (chronic obstructive pulmonary disease)A&PContinue inhalers, oxygenAdditional NotesWill repeat labs Monday morning as his labs have not changed significantly.He has remained afebrile. Leukocytosis is suspected secondary to steroids.DVT prophylaxis covered with novel oral anticoagulantGI prophylaxis with PPITime spent 35 minutesDisposition plan discharge after completion of antibiotics likely, will discusswith case management as this will be [facility] availability ofIV vancomycin and negative Covid testing priorResuscitation status Full codePlan discussed with patientCase discussed with hospice case manager, nursing staffDATE SIGNED: 08/21/20 Electronically SignedTIME SIGNED: 1153 ADAM [place] Name Value Range Interpretation Code Description Data Sanjuana rce(s) Supporting Document(s) ID Date Data Source [id number] 08/21/2020 09:12:00 AM EST [facility] Name Value Range Interpretation Code Description Data Sanjuana rce(s) Supporting Document(s) VANCOMYCIN TROU 19.2 ug/mL 5-10 [facility] FOR SKIN AND SKIN STRUCTURE INFECTIONS, GUIDELINES RECOMMENDA TROUGH OF 10. FOR SEVERE INFECTIONS, (PNEUMONIA, OSTEOMYELITIS, MENINGITISAND BACTEREMIA) A TARGET TROUGH OF 15 TO 20 IS RECOMMENDED. ID Date Data Source [id number] 08/21/2020 06:41:00 AM EST [facility] Name Value Range Interpretation Code Description Data Sanjuana rce(s) Supporting Document(s) FGLU 62 mg/dL 70-110 [facility] ID Date Data Source [id number] 08/21/2020 01:00:00 AM EST [facility] Name Value Range Interpretation Code Description Data Sanjuana rce(s) Supporting Document(s) FGLU 188 mg/dL 70-110 [facility] ID Date Data Source [id number] 08/20/2020 10:17:00 PM EST [facility] Name Value Range Interpretation Code Description Data Sanjuana rce(s) Supporting Document(s) FGLU 78 mg/dL 70-110 [facility] ID Date Data Source [id number] 08/20/2020 12:13:00 PM [facility] [place], [place] [address]OWEWDDMR NOTEPATIENT NAME: DIANA OLIVERAMARGOTH PHYSICIAN: KAMLA LANIER MDAUTHOR: Aric Maxwell. DATE: 08/11/20 MR#: [id number] NOTE DATE: 08/20/20 RM#: [id number] TIME: 1223 : 55SubjectiveEvents Since Last EntryPatient seen and examined today. Chart reviewed. Patient is doing welloverall in regards to his COVID-19. Will require 10 days of IV vancomycin dueto MRSA in sputum. Our plan at this point is to complete the course of hisantibiotics here and discharge him back to the senior living. Patient had lowblood glucose this morning at 65 and his Levemir was reduced. His blood sugarcame up with a snack into the 100s. Still has leukocytosis without fever.This is likely effect from IV steroid. Will monitor for downtrend. Patient'slabs are otherwise essentially stable. Patient's vital signs are stable.Review of SystemsSystems reviewed and negative Constitutional, Integumentary, Eyes, ENT,Respiratory, Cardiovascular, GI, , Musculoskeletal, Jeremías, Endocrine,Neurology, Psych, Allergy/ImmunologyObjectiveVital SignsVital Signs-24 HRS02/08/19400 2054 2200 2210Temp 98.0 98.5Pulse 88 89 90Resp 16 18B/P 101/58 106/90 106/61B/P MeanPulse Ox 98 95O2 Delivery Non-rebreather Nasal cannula Nasal cannulamaskO2 Flow Rate 15L 1L 1 [id number] 0800 0850 0850 0851Temp 97.3Pulse 87 98Resp 18B/P 106/62 103/57 103/57 103/57B/P MeanPulse Ox 96O2 Delivery Nasal cannula Nasal cannulaO2 Flow Rate 1 L 7EQeV4Pcufac/OutputIntake/Output Summary 24 hours02/03 1900 02/04 0700Intake Total 1090 1770Output Total 700 1500Balance 390 270Intake, IV 250 250Intake, Oral 840 1520Output, Urine 700 1500Patient 80 kgWeightCurrent MedicationsInsulin Detemir (Levemir) 20 UNIT DAILY SUBCUTVancomycin HCl (Vancocin) 1,000 MG Q12H IVDocusate Sodium (Colace) 100 MG BID POSenna (Senokot) 2 TAB QHSPRN PRN POCalcium/Vitamin D (Oscal) 1 TAB BID POLatanoprost (Xalatan) 0 QHS BOTHEYESOxycodone HCl (Oxyir) 5 MG Q6HPRN PRN POFentanyl (Duragesic) 50 MCG Q72H TOPMiscellaneous (Patch off) 1 PAT Q72H NAAmlodipine Besylate (Norvasc) 10 MG DAILY PODuloxetine HCl (Cymbalta) 60 MG DAILY POLisinopril (Prinivil,Zestril) 40 MG DAILY POMagnesium Oxide (Magox) 400 MG DAILY POMultivitamins (Multivitamin) 1 TAB DAILY POPantoprazole Sodium (Protonix) 40 MG DAILY POTiotropium Bacliff (Spiriva) 1 puffDAILY INHAlbuterol Sulfate (Ventolin) 1 PUFFBID INHAmiodarone HCl (Cordarone) 200 MG BID POApixaban (Eliquis) 5 MG BID POAscorbic Acid (Vitamin C) 500 MG BID POInsulin Detemir (Levemir) 20 UNIT QHS SUBCUTSodium Chloride (Saline Flush Syr(5ML)) 5 ML Q12H IVInsulin Aspart (Humalog Insulin) Low dose sliding scaleAC MEAL SUBCUTBaclofen (Lioresal) 10 MG TID POGabapentin (Neurontin) 300 MG TID POGlucose (Insta- Glucose) 15 GM DAILY NEEDED PRN POSodium Chloride (Saline Flush Syr(5ML)) 5 ML QIDPRN PRN IVExamGeneral Appearance no acute distress, afebrile, alert, awake, conversantHead atraumatic, normocephalicENT moist mucosal membranesNeck no JVD, suppleCardiovascular normal heart sounds, irregularly irregularRespiratory clear to auscultation, no distress, aerating well, symmetricexpansion, on oxygenAbdomen soft, non-tenderGenitourinary (male) no flank painUrinary no bladder distention, no flank painExtremities no edema, Right diabetic foot leg ulcers skin break down onbilateral lower legsMuscoskeletal full range of motion, normal inspectionNeurological alert, oriented x 3, normal cerebellar functio, normal speech, nomotor deficits, no sensory deficitsSkin AssessmentSkin dry, warm, Bilateral dressings lower extremities. Dressings clean dryand intact.Lymphatic no lymphadenopathyPsych/Mental Status normal affect, normal judgementResultsLaboratory DataRecent Labs-24 hours08/19710 2046 0426 0555 0557ChemistrySodium (136 - 147 mmol/L) 141Potassium (3.5 - 5.1 mmol/L) 4.5Chloride (99 - 110 mmol/L) 105Serum Bicarbonate (20 - 33 mmol/L) 26Anion Gap (10.0 - 20.0) 14.5BUN (7 - 23 mg/dL) 24 HCreatinine (0.500 - 1.300 mg/dL) 0.739Estimated GFR/1.73 m2 (mL/min) > 60Glucose (70 - 110 mg/dL) 31 PLPOC Glucose (70 - 110 mg/dL) 83 222 H 65 L 58 LCalcium (8.3 - 10.7 mg/dL) 8.8Magnesium (1.6 - 2.6 mg/dL) 1.7Total Bilirubin (0.1 - 1.1 mg/dL) 0.4AST (8 - 40 U/L) 15ALT (6 - 54 U/L) 31Alkaline Phosphatase (45 - 117 U/L) 71Total Protein (6.0 - 7.8 g/dL) 6.0Albumin (3.5 - 5.0 g/dL) 2.7 LGlobulin (2.3 - 3.5 g/dL) 3.3Albumin/Globulin Ratio (1.0 - 2.5) 0.8 L08/20617 0655 0714ChemistryPOC Glucose (70 - 110 mg/dL) 61 L 133 HHematologyWBC (4.0 - 10.5 x10E3/uL) 20.41 HRBC (4.70 - 6.00 x10E6/uL) 5.29Hgb (14.0 - 18.0 g/dL) 12.9 LHct (42.0 - 52.0 %) 42.4MCV (81.0 - 99.0 fL) 80.2 LMCH (27.0 - 31.0 pg) 24.4 LMCHC (32.7 - 35.6 g/dL) 30.4 LRDW (11.5 - 14.0 %) 18.7 HPlt Count (150 - 450 x10E3/uL) 430MPV (6.9 - 9.5 fl) 9.3Immature Gran % (Auto) (0.1 - 2.0 %) 2.4 HNeut % (Auto) (34 - 64 %) 68.9 HLymph % (Auto) (25 - 45 %) 17.6 LMono % (Auto) (1.7 - 10.6 %) 10.1Eos % (Auto) (0.4 - 7.0 %) 0.7Baso % (Auto) (0.1 - 2.0 %) 0.3Abs Immat Gran (auto) (0.0 - 0.1 x10E3/uL) 0.49 HAbsolute Neuts (auto) (1.2 - 7.6 x10E3/uL) 14.06 HAbsolute Lymphs (auto) (1.0 - 3.5 3.59 Hx10E3/uL)Absolute Monos (auto) (0.1 - 1.0 x10E3/uL) 2.06 HAbsolute Eos (auto) (0.1 - 0.7 x10E3/uL) 0.15Absolute Basos (auto) (0.0 - 0.1 x10E3/uL) 0.06Nucleated RBC % (auto) (0 %) 0Platelet Morphology 1+ PLT SIZE VARIESRBC Morphology 1+ ANISOCYTOSIS1+ MICROCYTOSIS1+ HYPOCHROMICResults Reviewed labs reviewedAssessment/PlanProblem List1. Pneumonia due to COVID-19 virusA&PContinue inhalers oxygen as required. Completed course of remdesivir.Completed steroids.2. Acute respiratory failure with hypoxiaA&PAs above3. DiabetesA&PPatient hypoglycemic this morning. Levemir decreased to 20 units daily. Homedosing is 20 twice daily according to the records. Monitor glucose closely.4. Diabetic foot ulcersA&PWound care following.5. AfibA&PContinue amiodarone and Eliquis6. HTN (hypertension)A&PContinue Norvasc, lisinopril7. MRSA (methicillin resistant staph aureus) culture positiveA&PContinue vancomycin to complete 10-day course. Follow trough. Trough isstable and acceptable less than 20. Renal function also stable.8. DepressionA&PContinue Cymbalta9. Chronic painA&PContinue Cymbalta, fentanyl patch, oxycodone. Continue baclofen. Continuegabapentin. He was placed on bowel regimen. Milk of magnesia x1 today.10. GlaucomaA&PContinue bhrdovrbxcu57. Vitamin D deficiencyA&PContinue vitamin D [id number]. DebilityA&PWill need to continue senior living placement as previous.13. GERD (gastroesophageal reflux disease)A&PContinue PPI14. COPD (chronic obstructive pulmonary disease)A&PContinue inhalers, oxygenAdditional NotesWill repeat labs Monday morning as his labs have not changed significantly.He has remained afebrile. Leukocytosis is suspected secondary to steroids.DVT prophylaxis covered with novel oral anticoagulantGI prophylaxis with PPITime spent 35 minutesDisposition plan discharge after completion of antibiotics likely, will discusswith case management as this will be based on the nursing homes availability ofIV vancomycin and negative Covid testing priorResuscitation status Full codePlan discussed with patientCase discussed with hospice case manager, nursing staffDATE SIGNED: 08/20/20 Electronically SignedTIME SIGNED: 1222 ADAM [place] Name Value Range Interpretation Code Description Data Sanjuana rce(s) Supporting Document(s) ID Date Data Source [id number] 08/20/2020 02:35:00 PM EST [facility] Name Value Range Interpretation Code Description Data Sanjuana rce(s) Supporting Document(s) FGLU 313 mg/dL 70-110 [facility] ID Date Data Source [id number] 08/20/2020 07:19:00 AM EST [facility] Name Value Range Interpretation Code Description Data Sanjuana rce(s) Supporting Document(s) FGLU 133 mg/dL 70-110 [facility] ID Date Data Source [id number] 08/20/2020 07:48:00 AM EST [facility] Name Value Range Interpretation Code Description Data Sanjuana rce(s) Supporting Document(s) WBC 20.41 x10E3/uL 4.0-10.5 [facility] RBC 5.29 x10E6/uL 4.70-6.00 [facility] Hemoglobin 12.9 g/dL 14.0-18.0 [facility] Hematocrit 42.4 % 42.0-52.0 [facility] MCV 80.2 fL 81.0-99.0 [facility] MCH 24.4 pg 27.0-31.0 [facility] MCHC 30.4 g/dL 32.7-35.6 [facility] RDW 18.7 % 11.5-14.0 [facility] Platelet count 430 x10E3/uL 150-450 [facility] MPV 9.3 fl 6.9-9.5 [facility] Neutrophils 68.9 % 34-64 [facility] Lymphocytes 17.6 % 25-45 [facility] Monocytes 10.1 % 1.7-10.6 [facility] Eosinophils 0.7 % 0.4-7.0 [facility] Basophils 0.3 % 0.1-2.0 [facility] Imm. Gran. 2.4 % 0.1-2.0 [facility] Abs. Neutro. 14.06 x10E3/uL 1.2-7.6 [facility] Abs. Lymph. 3.59 x10E3/uL 1.0-3.5 [facility] Abs. Stokes. 2.06 x10E3/uL 0.1-1.0 [facility] Abs. Eosin. 0.15 x10E3/uL 0.1-0.7 [facility] Abs. Baso. 0.06 x10E3/uL 0.0-0.1 [facility] Abs. Imm. Gran. 0.49 x10E3/uL 0.0-0.1 [facility] DIFFERENTIAL CONFIRMED BY SLIDE REVIEW. ANRBC% 0 % 0 [facility] PLATELET MORPH 1+ PLT SIZE VARIES N [facility] PLATELET MORPHOLOGY EXPECTED RESULT:NORM AL = NO REMARKABLE MORPHOLOGYAny findings other than Normal will be reported and areconsidered Abnormal. The significance of Abnormal findingsare to be clinically correlated by the provider. 1+ ANISOCYTOSIS1+ MICROCYTOSIS1+ HYPOCHROMICRBC MORPHOLOGY EXPECTED RESULTS: NORMAL = NORMOCHROMIC, NORMOCYTIC CELLSAny findings other than Normal will be reported and areconsidered Abnormal. The significance of Abnormalfindings are to be clinically correlated by the provider. ID Date Data Source [id number] 08/20/2020 06:57:00 AM EST [facility] Name Value Range Interpretation Code Description Data Sanjuana rce(s) Supporting Document(s) FGLU 61 mg/dL 70-110 [facility] ID Date Data Source [id number] 08/20/2020 08:32:00 AM EST [facility] Name Value Range Interpretation Code Description Data Sanjuana rce(s) Supporting Document(s) FGLU 58 mg/dL 70-110 [facility] ID Date Data Source [id number] 08/20/2020 09:58:00 AM EST [facility] Name Value Range Interpretation Code Description Data Sanjuana rce(s) Supporting Document(s) FGLU 65 mg/dL 70-110 [facility] ID Date Data Source [id number] 08/20/2020 01:00:00 PM EST [facility] Name Value Range Interpretation Code Description Data Sanjuana rce(s) Supporting Document(s) FGLU 91 mg/dL 70-110 [facility] ID Date Data Source [id number] 08/20/2020 05:18:00 AM EST [facility] Name Value Range Interpretation Code Description Data Sanjuana rce(s) Supporting Document(s) MAGNESIUM 1.7 mg/dL 1.6-2.6 [facility] ID Date Data Source [id number] 08/20/2020 05:18:00 AM EST [facility] Name Value Range Interpretation Code Description Data Sanjuana rce(s) Supporting Document(s) GLU 31 mg/dL 70-110 [facility] Patients taking Sulfasalazine may have f alsely depressedGlucose levels. Patients taking Sulfapyridine may havefalsely elevated Glucose levels. Patients should be drawnfor Glucose before the initial administration of eitherdrug. BUN 24 mg/dL 7-23 [facility] CRE 0.739 mg/dL 0.500-1.300 [facility] GFR > 60 mL/min [facility] CHLORIDE 105 mmol/L 99-110 [facility] NA 141 mmol/L 136-147 [facility] POTASSIUM 4.5 mmol/L 3.5-5.1 [facility] TCO2 26 mmol/L 20-33 [facility] ANION GAP 14.5 10.0-20.0 [facility] CA 8.8 mg/dL 8.3-10.7 [facility] ALKALINE PHOS 71 U/L 45-117 [facility] TP 6.0 g/dL 6.0-7.8 [facility] ALB 2.7 g/dL 3.5-5.0 [facility] ESRD Dialysis patient Albumin reference range: 2.9-4.4 g/dL GL 3.3 g/dL 2.3-3.5 [facility] A/G 0.8 1.0-2.5 [facility] T. BILIRUBIN 0.4 mg/dL 0.1-1.1 [facility] [employer] Total Bilirubin is n ot recommended forpatients undergoing treatment with eltrombopag (Promacta)due to the potential for falsely elevated results. ALTI 31 U/L 6-54 [facility] Patients taking Sulfasalazine and/or Sul fapyridine may havefalsely depressed ALT levels. Patients should be drawn forALT before the initial administration of either drug. AST 15 U/L 8-40 [facility] Patients taking Sulfasalazine and/or Sul fapyridine may havefalsely depressed AST levels. Patients should be drawn forAST before the initial administration of either drug. ID Date Data Source [id number] 08/19/2020 10:47:00 PM EST [facility] Name Value Range Interpretation Code Description Data Sanjuana rce(s) Supporting Document(s) FGLU 222 mg/dL 70-110 [facility] ID Date Data Source [id number] 08/19/2020 06:58:00 PM EST [facility] Name Value Range Interpretation Code Description Data Sanjuana rce(s) Supporting Document(s) FGLU 83 mg/dL 70-110 [facility] ID Date Data Source [id number] 08/19/2020 02:31:00 PM EST [facility] [address] [id number] NOTEPATIENT NAME: DIANA OLIVERA PHYSICIAN: KAMLA LANIER, MDAUTHOR: Aric Maxwell. DATE: 08/11/20 MR#: [id number] NOTE DATE: 08/19/20 RM#: [id number] TIME: 1439 : 55SubjectiveEvents Since Last EntryPatient seen and examined today. Chart reviewed. Patient is doing welloverall in regards to his COVID-19. Will require 10 days of IV vancomycin dueto MRSA in sputum. Our plan at this point is to complete the course of hisantibiotics here and discharge him back to the senior living. Patient's labsare stable.Review of SystemsSystems reviewed and negative Constitutional, Integumentary, Eyes, ENT,Respiratory, Cardiovascular, GI, , Musculoskeletal, Jeremías, Endocrine,Neurology, Psych, Allergy/ImmunologyObjectiveVital SignsVital Signs-24 HRS08/18029 2140 2200 0622 0925Temp 97.9 98.5Pulse 86 88 89 92Re sp 18 17B/P 119/63 119/63 110/61 103/58B/P MeanPulse Ox 97 98O2 Delivery Nasal cannula Nasal cannula Nasal cannulaO2 Flow Rate 2 2L [id number]/19925 0925 1000TempPulseRespB/P 103/58 103/58B/P MeanPulse OxO2 Delivery Nasal cannulaO2 Flow Rate 5ODdZ9Jtauou/OutputIntake/Output Summary 24 hours02/02 1900 02/03 0700Intake Total 1125 1400Output Total 700 1300Balance 425 100Intake, IV 525Intake, Oral 600 1400Number 1BowelMovementsOutput, Urine 700 1300Current MedicationsVancomycin HCl (Vancocin) 1,000 MG Q12H IVDocusate Sodium (Colace) 100 MG BID POSenna (Senokot) 2 TAB QHSPRN PRN P OInsulin Detemir (Levemir) 70 UNIT DAILY SUBCUTCalcium/Vitamin D (Oscal) 1 TAB BID POLatanoprost (Xalatan) 0 QHS BOTHEYESOxycodone HCl (Oxyir) 5 MG Q6HPRN PRN POFentanyl (Duragesic) 50 MCG Q72H TOPMiscellaneous (Patch off) 1 PAT Q72H NAAmlodipine Besylate (Norvasc) 10 MG DAILY PODuloxetine HCl (Cymbalta) 60 MG DAILY POLisinopril (Prinivil,Zestril) 40 MG DAILY POMagnesium Oxide (Magox) 400 MG DAILY POMultivitamins (Multivitamin) 1 TAB DAILY POPantoprazole Sodium (Protonix) 40 MG DAILY POTiotropium Bacliff (Spiriva) 1 puffDAILY INHAlbuterol Sulfate (Ventolin) 1 PUFFBID INHAmiodarone HCl (Cordarone) 200 MG BID POApixaban (Eliquis) 5 MG BID POAscorbic Acid (Vitamin C) 500 MG BID POInsulin Detemir (Levemir) 20 UNIT QHS SUBCUTSodium Chloride (Saline Flush Syr(5ML)) 5 ML Q12H IVInsulin Aspart (Humalog Insulin) Low dose sliding scaleAC MEAL SUBCUTBaclofen (Lioresal) 10 MG TID POGabapentin (Neurontin) 300 MG TID POGlucose (Insta-Glucose) 15 GM DAILY NEEDED PRN POSodium Chloride (Saline Flush Syr(5ML)) 5 ML QIDPRN PRN IVExamGeneral Appearance no acute distress, afebrile, alert, awake, conversantHead atraumatic, normocephalicENT moist mucosal membranesNeck no JVD, suppleCardiovascular normal heart sounds, irregularly irregularRespiratory clear to auscultation, no distress, aerating well, symmetricexpansion, on oxygenAbdomen soft, non-tenderGenitourinary (male) no flank painUrinary no bladder distention, no flank painExtremities no edema, Right diabetic foot leg ulcers skin break down onbilateral lower legsMuscoskeletal full range of motion, normal inspectionNeurological alert, oriented x 3, normal cerebellar functio, normal speech, nomotor deficits, no sensory deficitsSkin AssessmentSkin dry, intact, warmLymphatic no lymphadenopathyPsych/Mental Status normal affect, normal judgementResultsLaboratory DataRecent Labs-24 hours08/18ChemistrySodium (136 - 147 mmol/L) 139Potassium (3.5 - 5.1 mmol/L) 4.7Chloride (99 - 110 mmol/L) 103Serum Bicarbonate (20 - 33 mmol/L) 30Anion Gap (10.0 - 20.0) 10.7BUN (7 - 23 mg/dL) 21Creatinine (0.500 - 1.300 mg/dL) 0.665Estimated GFR/1.73 m2 (mL/min) > 60Glucose (70 - 110 mg/dL) 96POC Glucose (70 - 110 mg/dL) 192 H 268 HCalcium (8.3 - 10.7 mg/dL) 8.9Magnesium (1.6 - 2.6 mg/dL) 2.0Total Bilirubin (0.1 - 1.1 mg/dL) 0.4AST (8 - 40 U/L) 13ALT (6 - 54 U/L) 31Alkaline Phosphatase (45 - 117 U/L) 72Total Protein (6.0 - 7.8 g/dL) 5.9 LAlbumin (3.5 - 5.0 g/dL) 2.6 LGlobulin (2.3 - 3.5 g/dL) 3.3Albumin/Globulin Ratio (1.0 - 2.5) 0.8 LHematologyWBC (4.0 - 10.5 x10E3/uL) 18.99 HRBC (4.70 - 6.00 x10E6/uL) 5.23Hgb (14.0 - 18.0 g/dL) 12.8 LHct (42.0 - 52.0 %) 41.6 LMCV (81.0 - 99.0 fL) 79.5 LMCH (27.0 - 31.0 pg) 24.5 LMCHC (32.7 - 35.6 g/dL) 30.8 LRDW (11.5 - 14.0 %) 18.8 HPlt Count (150 - 450 x10E3/uL) 472 HMPV (6.9 - 9.5 fl) 9.7 HImmature Gran % (Auto) (0.1 - 2.0 %) 2.1 HNeut % (Auto) (34 - 64 %) 78.7 HLymph % (Auto) (25 - 45 %) 10.4 LMono % (Auto) (1.7 - 10.6 %) 8.5Eos % (Auto) (0.4 - 7.0 %) 0.1 LBaso % (Auto) (0.1 - 2.0 %) 0.2Abs Immat Gran (auto) (0.0 - 0.1 x10E3/uL) 0.39 HAbsolute Neuts (auto) (1.2 - 7.6 x10E3/uL) 14.97 HAbsolute Lymphs (auto) (1.0 - 3.5 x10E3/uL) 1.97Absolute Monos (auto) (0.1 - 1.0 x10E3/uL) 1.62 HAbsolute Eos (auto) (0.1 - 0.7 x10E3/uL) 0.01 LAbsolute Basos (auto) (0.0 - 0.1 x10E3/uL) 0.03Nucleated RBC % (auto) (0 %) 0Platelet Morphology INCREASEDRBC Morphology 1+ ANISOCYTOSIS1+ HYPOCHROMIC1+ [id number] 0740 1118ChemistryPOC Glucose (70 - 110 mg/dL) 81 171 HToxicologyVancomycin Trough (5 - 10 ug/mL) 19.6 HResults Reviewed labs reviewedAssessment/PlanProblem List1. Pneumonia due to COVID-19 virusA&PContinue inhalers oxygen as required. Completed course of remdesivir.Completed steroids.2. Acute respiratory failure with hypoxiaA&PAs above3. DiabetesA&PLevemir decreased to 50 units daily. Home dosing is 20 twice daily accordingto the records. DC of steroids produced borderline low blood sugar in the 80sthis morning which is suboptimal for this patient. Monitor glucose.4. Diabetic foot ulcersA&PWound care5. AfibA&PContinue amiodarone and Eliquis6. HTN (hypertension)A&PContinue Norvasc, lisinopril7. MRSA (methicillin resistant staph aureus) culture positiveA&PContinue vancomycin to complete 10- day course. Follow trough. Trough isstable and acceptable less than 20. Renal function also stable.8. DepressionA&PContinue Cymbalta9. Chronic painA&PContinue Cymbalta, fentanyl patch, oxycodone. Continue baclofen. Continuegabapentin. She was placed on bowel shjuoji73. GlaucomaA&PContinue efbdhazqpyk75. Vitamin D deficiencyA&PContinue vitamin D jngexmunka01. DebilityA&PWill need to continue senior living placement as previous.13. GERD (gastroesophageal reflux disease)A&PContinue PPI14. COPD (chronic obstructive pulmonary disease)A&PContinue inhalers, oxygenAdditional NotesDVT prophylaxis covered with novel oral anticoagulantGI prophylaxis with PPITime spent 35 minutesDisposition plan discharge after completion of antibiotics likely, will discusswith case management as this will be based on the nursing homes availability ofIV vancomycin and negative Covid testing priorResuscitation status Full codePlan discussed with patientCase discussed with hospice case manager, nursing staffDATE SIGNED: 08/19/20 Electronically SignedTIME SIGNED: 1431 ADAM SANABRIA Name Value Range Interpretation Code Description Data Sanjuana rce(s) Supporting Document(s) ID Date Data Source [id number] 08/19/2020 11:22:00 AM EST [facility] Name Value Range Interpretation Code Description Data Sanjuana rce(s) Supporting Document(s) FGLU 171 mg/dL 70-110 [facility] ID Date Data Source [id number] 08/19/2020 08:46:00 AM EST [facility] Name Value Range Interpretation Code Description Data Sanjuana rce(s) Supporting Document(s) VANCOMYCIN TROU 19.6 ug[facility]mL [facility]UCT[facility] INFE[facility], GUIDELINES RECOMMENDA TROUGH OF 10. FOR SEVERE INFECTIONS, (PNEUMONIA, OSTEOMYELITIS, MENINGITISAND BACTEREMIA) A TARGET TROUGH OF 15 TO 20 IS RECOMMENDED. ID Date Data Source [id number] 08/19/2020 10:06:00 AM EST [facility] gege Name Value Range Interpretation Code Description Data Sanjuana rce(s) Supporting Document(s) FGLU 81 mg/dL 70-110 [facility] ID Date Data Source [id number] 08/19/2020 04:45:00 AM EST [facility] gege Name Value Range Interpretation Code Description Data [facility](s) GLU 96 mg/dL 70-110 [facility] Patients taking Sulfasalazine may have f alsely depressedGlucose levels. Patients taking Sulfapyridine may havefalsely elevated Glucose levels. Patients should be drawnfor Glucose before the initial administration of eitherdrug. BUN 21 mg/dL 7-23 [facility] CRE 0.665 mg/dL 0.500-1.300 [facility] GFR > 60 mL/min [facility] CHLORIDE 103 mmol/L 99-110 [facility] NA 139 mmol/L 136-147 [facility] POTASSIUM 4.7 mmol/L 3.5-5.1 [facility] TCO2 30 mmol/L 20-33 [facility] ANION GAP 10.7 10.0-20.0 [facility] CA 8.9 mg/dL 8.3-10.7 [facility] ALKALINE PHOS 72 U/L 45-117 [facility] TP 5.9 g/dL 6.0-7.8 [facility] ALB 2.6 g/dL 3.5-5.0 [facility] ESRD Dialysis patient Albumin reference range: 2.9-4.4 g/dL GL 3.3 g/dL 2.3-3.5 [facility] A/G 0.8 1.0-2.5 [facility] T. BILIRUBIN 0.4 mg/dL 0.1-1.1 [facility] The Dimension [place] Total Bilirubin is n ot recommended forpatients undergoing treatment with eltrombopag (Promacta)due to the potential for falsely elevated results. ALTI 31 U/L 6-54 [facility] Patients taking Sulfasalazine and/or Sul fapyridine may havefalsely depressed ALT levels. Patients should be drawn forALT before the initial administration of either drug. AST 13 U/L 8-40 [facility] Patients taking Sulfasalazine and/or Sul fapyridine may havefalsely depressed AST levels. Patients should be drawn forAST before the initial administration of either drug. ID Date Data Source [id number] 08/19/2020 04:45:00 AM EST [facility] Name Value Range Interpretation Code Description Data Sanjuana rce(s) Supporting Document(s) MAGNESIUM 2.0 mg/dL 1.6-2.6 [facility] ID Date Data Source [id number] 08/19/2020 04:34:00 AM EST [facility] Name Value Range Interpretation Code Description Data Sanjuana rce(s) Supporting Document(s) WBC 18.99 x10E3/uL 4.0-10.5 [facility] RBC 5.23 x10E6/uL 4.70-6.00 [facility] Hemoglobin 12.8 g/dL 14.0-18.0 [facility] Hematocrit 41.6 % 42.0-52.0 [facility] MCV 79.5 fL 81.0-99.0 [facility] MCH 24.5 pg 27.0-31.0 [facility] MCHC 30.8 g/dL 32.7-35.6 [facility] RDW 18.8 % 11.5-14.0 [facility] Platelet count 472 x10E3/uL 150-450 [facility] ital MPV 9.7 fl 6.9-9.5 [facility] Neutrophils 78.7 % 34-64 [facility] Lymphocytes 10.4 % 25-45 [facility] Monocytes 8.5 % 1.7-10.6 [facility] Eosinophils 0.1 % 0.4-7.0 [facility] Basophils 0.2 % 0.1-2.0 [facility] Imm. Gran. 2.1 % 0.1-2.0 H [facility] Abs. Neutro. 14.97 x10E3/uL 1.2-7.6 [facility] Abs. Lymph. 1.97 x10E3/uL 1.0-3.5 [facility] Abs. Stokes. 1.62 x10E3/uL 0.1-1.0 [facility] Abs. Eosin. 0.01 x10E3/uL 0.1-0.7 [facility] Abs. Baso. 0.03 x10E3/uL 0.0-0.1 [facility] Abs. Imm. Gran. 0.39 x10E3/uL 0.0-0.1 [facility] DIFFERENTIAL CONFIRMED BY SLIDE REVIEW.0 08/19/20 0433: Abs. Imm. Gran. previously reported as: 0.39 Hx10E3/uL ANRBC% 0 % 0 N [facility] PLATELET MORPH INCREASED N [facility] PLATELET MORPHOLOGY EXPECTED RESULT:NORM AL = NO REMARKABLE MORPHOLOGYAny findings other than Normal will be reported and areconsidered Abnormal. The significance of Abnormal findingsare to be clinically correlated by the provider. 1+ ANISOCYTOSIS1+ HYPOCHROMIC1+ MICROCYTOSISRBC MORPHOLOGY EXPECTED RESULTS: NORMAL = NORMOCHROMIC, NORMOCYTIC CELLSAny findings other than Normal will be reported and areconsidered Abnormal. The significance of Abnormalfindings are to be clinically correlated by the provider. ID Date Data Source [id number] 08/19/2020 02:33:00 PM EST [facility] Name Value Range Interpretation Code Description Data Sanjuana rce(s) Supporting Document(s) FGLU 268 mg/dL 70-110 [facility] ID Date Data Source [id number] 08/18/2020 07:28:00 PM EST [facility] Name Value Range Interpretation Code Description Data Sanjuana rce(s) Supporting Document(s) FGLU 192 mg/dL 70-110 [facility] ID Date Data Source [id number] 08/18/2020 03:25:00 PM EST [facility] [address] [id number] NOTEPATIENT NAME: DIANA OLIVERAMARGOTH PHYSICIAN: KAMLA LANIER MDAUTHOR: Aric Maxwell. DATE: 08/11/20 MR#: [id number] NOTE DATE: 08/18/20 RM#: [id number] TIME: 153 : 55SubjectiveEvents Since Last EntryPatient seen and examined today. Chart reviewed. Patient is doing welloverall in regards to his COVID-19. Will require 10 days of IV vancomycin dueto MRSA in sputum. Patient's labs are stab le. Will DC simethicone as patienthas received 7+ days and is now ready to be discharged from the aspect of hisNEVID-19. Unable to be placed back at [facility] until COVID-19 negative. He will need to complete his vancomycin first as well. Heremains afebrile. He is a possible discharge to [facility] swingbed [facility] and this is pending. He is stable for discharge into long-termcare or swing bed at any point in time. We are awaiting either negative Covidtesting for transfer back to [facility] or placement availability at [facility] swing bed. I updated his yesterday.ObjectiveVital SignsVital Signs-24 HRS08/17 2200Temp 97.5 97.8Pulse 73 68 85Resp 18 16B/P 119/66 121/66 119/66B/P MeanPulse Ox 96 98O2 Deliv francisco Nasal cannula Nasal cannula Nasal cannulaO2 Flow Rate 2L 2L 3 QLWKRQNvB627/08/18150 0600 0800 0827 0828Temp 97.6 97.4Pulse 129 81 91Resp 25 18B/P 182/93 118/64 120/61 120/61B/P MeanPulse Ox 88 99O2 Delivery Vapotherm Nasal cannula Nasal cannulaO2 Flow Rate 40L 2L 6VSfB358/8 1349Temp 98.5Pulse 90Resp 20B/P 120/61 122/64B/P MeanPulse Ox 100O2 Delivery Nasal cannulaO2 Flow Rate 9KNaI6Bofnna/OutputIntake/Output Summary 24 hours02/01 1900 02/ 0700Intake Total 2009 200Output Total 1400 1500Balance 610 -1300Intake, IV 250Intake, Oral 1760 200Output, Urine 1400 1500Current MedicationsInsulin Detemir (Levemir) 70 UNIT DAILY SUBCUTCalcium/Vitamin D (Oscal) 1 TAB BID POLatanoprost (Xalatan) 0 QHS BOTHEYESOxycodone HCl (Oxyir) 5 MG Q6HPRN PRN POFentanyl (Duragesic) 50 MCG Q72H TOPM iscellaneous (Patch off) 1 PAT Q72H NAAmlodipine Besylate (Norvasc) 10 MG DAILY PODuloxetine HCl (Cymbalta) 60 MG DAILY POLisinopril (Prinivil,Zestril) 40 MG DAILY POMagnesium Oxide (Magox) 400 MG DAILY POMultivitamins (Multivitamin) 1 TAB DAILY POPantoprazole Sodium (Protonix) 40 MG DAILY POTiotropium Bacliff (Spiriva) 1 puffDAILY INHAlbuterol Sulfate (Ventolin) 1 PUFFBID INHAmiodarone HCl (Cordarone) 200 MG BID POApixaban (Eliquis) 5 MG BID POAscorbic Acid (Vitamin C) 500 MG BID POInsulin Detemir (Levemir) 20 UNIT QHS SUBCUTSodium Chloride (Saline Flush Syr(5ML)) 5 ML Q12H IVVancomycin HCl (Vancocin) 1,250 MG Q12H IVSodium Chloride (NSS 0.9% 500ML) 500 MLInsulin Aspart (Humalog Insulin) Low dose sliding scaleAC MEAL SUBCUTBaclofen (Lioresal) 10 MG TID POGabapentin (Neurontin) 300 MG TID POGlucose (Insta- Glucose) 15 GM DAILY NEEDED PRN POSodium Chloride (Saline Flush Syr(5ML)) 5 ML QIDPRN PRN IVExamGeneral Appearance no acute distress, afebrile, alert, awake, conversantHead atraumatic, normocephalicENT moist mucosal membranesNeck no JVD, suppleCardiovascular normal heart sounds, irregularly irregularRespiratory clear to auscultation, no distress, aerating well, symmetricexpansion, on oxygenAbdomen soft, non-tenderGenitourinary (male) no flank painUrinary no bladder distention, no flank painExtremities no edema, Right diabetic foot leg ulcers skin break down onbilateral lower legsMuscoskeletal full range of motion, normal inspectionNeurological alert, oriented x 3, normal cerebellar functio, normal speech, nomotor deficits, no sensory deficitsSkin AssessmentSkin dry, intact, warmLymphatic no lymphadenopathyPsych/Mental Status normal affect, normal judgementResultsLaborat ory DataRecent Labs-24 hours08/17 8934 0610ChemistrySodium (136 - 147 mmol/L) 135 LPotassium (3.5 - 5.1 mmol/L) 4.5Chloride (99 - 110 mmol/L) 100Serum Bicarbonate (20 - 33 mmol/L) 27Anion Gap (10.0 - 20.0) 12.5BUN (7 - 23 mg/dL) 19Creatinine (0.500 - 1.300 mg/dL) 0.584Estimated GFR/1.73 m2 (mL/min) > 60Glucose (70 - 110 mg/dL) 155 HPOC Glucose (70 - 110 mg/dL) 248 H 367 H 162 HCalcium (8.3 - 10.7 mg/dL) 8.6Phosphorus (2.5 - 4.5 mg/dL) 3.7Magnesium (1.6 - 2.6 mg/dL) 1.7Total Bilirubin (0.1 - 1.1 mg/dL) 0.4AST (8 - 40 U/L) 16ALT (6 - 54 U/L) 31Alkaline Phosphatase (45 - 117 U/L) 71C-Reactive Protein (0.0 - 0.49 mg/dL) 0.38Total Protein (6.0 - 7.8 g/dL) 5.9 LAlbumin (3.5 - 5.0 g/dL) 2.5 LGlobulin (2.3 - 3.5 g/dL) 3.4Albumin/Globulin Ratio (1.0 - 2.5) 0.7 LHematologyWBC (4.0 - 10.5 x10E3/uL) 17.34 HRBC (4.70 - 6.00 x10E6/uL) 5.27Hgb (14.0 - 18.0 g/dL) 12.7 LHct (42.0 - 52.0 %) 41.4 LMCV (81.0 - 99.0 fL) 78.6 LMCH (27.0 - 31.0 pg) 24.1 LMCHC (32.7 - 35.6 g/dL) 30.7 LRDW (11.5 - 14.0 %) 18.6 HPlt Count (150 - 450 x10E3/uL) 499 HMPV (6.9 - 9.5 fl) 9.6 HImmature Gran % (Auto) (0.1 - 2.0 %) 2.4 HNeut % (Auto) (34 - 64 %) 79.5 HLymph % (Auto) (25 - 45 %) 10.2 LMono % (Auto) (1.7 - 10.6 %) 7.6Eos % (Auto) (0.4 - 7.0 %) 0.1 LBaso % (Auto) (0.1 - 2.0 %) 0.2Abs Immat Gran (auto) (0.0 - 0.1 x10E3/uL) 0.41 HAbsolute Neuts (auto) (1.2 - 7.6 x10E3/uL) 13.81 HAbsolute Lymphs (auto) (1.0 - 3.5 x10E3/uL) 1.77Absolute Monos (auto) (0.1 - 1.0 x10E3/uL) 1.31 HAbsolute Eos (auto) (0.1 - 0.7 x10E3/uL) 0.01 LAbsolute Basos (auto) (0.0 - 0.1 x10E3/uL) 0.03Nucleated RBC % (auto) (0 %) [id number] Glucose (70 - 110 mg/dL) 164 HResults Reviewed labs reviewedAssessment/PlanProblem List1. Pneumonia due to COVID-19 virusA&PDC steroids is completely recovered from COVID-19. Continue inhalers oxygen asrequired. Completed course of remdesivir.2. Acute respiratory failure with hypoxiaA&PAs above.3. DiabetesA&PIncrease long-acting insulin to 70 units daily as done yesterday. DC steroids.Monitor glucose. Blood sugar very high at this morning indicating poorcontrol. Hopefully DC of steroids will help this.4. Diabetic foot ulcersA&PLocal wound care5. AfibA&PContinue amiodarone and Eliquis6. HTN (hypertension)A&PContinue Norvasc, lisinopril7. MRSA (methicillin resistant staph aureus) culture positiveA&PContinue vancomycin to complete 10- day course. Follow trough. Trough isstable and acceptable at 15. Renal function also stable.8. DepressionA&PContinue Cymbalta9. Chronic painA&PContinue Cymbalta, fentanyl patch, oxycodone. Continue baclofen. Continuegabapentin.10. GlaucomaA&PContinue jsujxrwjuid52. Vitamin D deficiencyA&PContinue vitamin D eipfjegvxz73. DebilityA&PWill need to continue senior living placement as previous.13. GERD (gastroesophageal reflux disease)A&PContinue PPI14. COPD (chronic obstructive pulmonary disease)A&PContinue inhalers, oxygenAdditional NotesDVT prophylaxis with novel oral anticoagulantGI prophylaxis with PPITime spent 35 minutesDisposition plan discharge after completion of antibiotics likely, will discusswith case management as this will be based [facility] availability ofIV vancomycin and negative Covid testing priorResuscitation status Full codePlan discussed with patient, wifeCase discussed with hospice case manager, nursing staffDATE SIGNED: 08/18/20 Electronically SignedTIME SIGNED: 1531 ADAM SANABRIA Name Value Range Interpretation Code Description Data Sanjuana rce(s) Supporting Document(s) ID Date Data Source [id number] 08/18/2020 11:21:00 AM EST [facility] Name Value Range Interpretation Code Description Data Sanjuana rce(s) Supporting Document(s) FGLU 164 mg/dL 70-110 [facility] ID Date Data Source [id number] 08/18/2020 06:16:00 AM EST [facility] Name Value Range Interpretation Code Description Data Sanjuana rce(s) Supporting Document(s) FGLU 162 mg/dL 70-110 [facility] ID Date Data Source [id number] 08/18/2020 06:22:00 AM EST [facility] Name Value Range Interpretation Code Description Data Sanjuana rce(s) Supporting Document(s) C-REACTIVE PROT 0.38 mg/dL 0.0-0.49 [facility] ID Date Data Source [id number] 08/18/2020 06:22:00 AM EST [facility] Name Value Range Interpretation Code Description Data Sanjuana rce(s) Supporting Document(s) DENILSON 3.7 mg/dL 2.5-4.5 [facility] ID Date Data Source [id number] 08/18/2020 06:22:00 AM EST [facility] Name Value Range Interpretation Code Description Data Sanjuana rce(s) Supporting Document(s) GLU 155 mg/dL 70-110 [facility] Patients taking Sulfasalazine may have f alsely depressedGlucose levels. Patients taking Sulfapyridine may havefalsely elevated Glucose levels. Patients should be drawnfor Glucose before the initial administration of eitherdrug. BUN 19 mg/dL 7-23 [facility] CRE 0.584 mg/dL 0.500-1.300 [facility] GFR > 60 mL/min [facility] CHLORIDE 100 mmol/L 99-110 [facility] NA 135 mmol/L 136-147 [facility] POTASSIUM 4.5 mmol/L 3.5-5.1 [facility] TCO2 27 mmol/L 20-33 [facility] ANION GAP 12.5 10.0-20.0 [facility] CA 8.6 mg/dL 8.3-10.7 [facility] ALKALINE PHOS 71 U/L 45-117 [facility] TP 5.9 g/dL 6.0-7.8 [facility] ALB 2.5 g/dL 3.5-5.0 [facility] ESRD Dialysis patient Albumin reference range: 2.9-4.4 g/dL GL 3.4 g/dL 2.3-3.5 [facility] A/G 0.7 1.0-2.5 [facility] T. BILIRUBIN 0.4 mg/dL 0.1-1.1 [facility] The [employer] [place] Total Bilirubin is n ot recommended forpatients undergoing treatment with eltrombopag (Promacta)due to the potential for falsely elevated results. ALTI 31 U/L 6-54 [facility] Patients taking Sulfasalazine and/or Sul fapyridine may havefalsely depressed ALT levels. Patients should be drawn forALT before the initial administration of either drug. AST 16 U/L 8-40 [facility] Patients taking Sulfasalazine and/or Sul fapyridine may havefalsely depressed AST levels. Patients should be drawn forAST before the initial administration of either drug. ID Date Data Source [id number] 08/18/2020 06:22:00 AM EST [facility] Name Value Range Interpretation Code Description Data Sanjuana rce(s) Supporting Document(s) MAGNESIUM 1.7 mg/dL 1.6-2.6 [facility] ID Date Data Source [id number] 08/18/2020 05:56:00 AM EST [facility] Name Value Range Interpretation Code Description Data Sanjuana rce(s) Supporting Document(s) WBC 17.34 x10E3/uL 4.0-10.5 [facility] RBC 5.27 x10E6/uL 4.70-6.00 [facility] [facility] Hem[facility] 12.7 g/dL 14.0-18.0 [facility] Hematocrit 41.4 % 42.0-52.0 [facility] MCV 78.6 fL 81.0-99.0 [facility] MCH 24.1 pg 27.0-31.0 [facility] MCHC 30.7 g/dL 32.7-35.6 [facility] RDW 18.6 % 11.5-14.0 [facility] Platelet count 499 x10E3/uL 150-450 [facility] ital MPV 9.6 fl 6.9-9.5 [facility] Neutrophils 79.5 % 34-64 [facility] Lymphocytes 10.2 % 25-45 [facility] Monocytes 7.6 % 1.7-10.6 [facility] Eosinophils 0.1 % 0.4-7.0 [facility] Basophils 0.2 % 0.1-2.0 [facility] Imm. Gran. 2.4 % 0.1-2.0 [facility] Abs. Neutro. 13.81 x10E3/uL 1.2-7.6 [facility] Abs. Lymph. 1.77 x10E3/uL 1.0-3.5 [facility] Abs. Stokes. 1.31 x10E3/uL 0.1-1.0 [facility] Abs. Eosin. 0.01 x10E3/uL 0.1-0.7 [facility] Abs. Baso. 0.03 x10E3/uL 0.0-0.1 [facility] Abs. Imm. Gran. 0.41 x10E3/uL 0.0-0.1 [facility] ANRBC% 0 % 0 [facility] ID Date Data Source [id number] 08/18/2020 01:09:00 AM EST [facility] Name Value Range Interpretation Code Description Data Sanjuana rce(s) Supporting Document(s) FGLU 367 mg/dL 70-110 [facility] ID Date Data Source [id number] 08/17/2020 04:48:00 PM EST [facility] Name Value Range Interpretation Code Description Data Sanjuana rce(s) Supporting Document(s) FGLU 248 mg/dL 70-110 [facility] ID Date Data Source [id number] 08/17/2020 03:19:00 PM EST [facility] [address] [id number] NOTEPATIENT NAME: DIANA OLIVERA PHYSICIAN: KAMLA LANIER, YUNIERUTHOR: Aric Maxwell. DATE: 08/11/20 MR#: [id number] NOTE DATE: 08/17/20 RM#: [id number] TIME: 1528 : 55SubjectiveEvents Since Last EntryPatient seen and examined today. Chart reviewed. Patient is doing welloverall in regards to his COVID-19. Will require 10 days of IV vancomycin.Unable to be [facility] at [facility] nu rsing home until COVID-19negative. He will need to complete his vancomycin first as well. He remainsafebrile.Review of SystemsSystems reviewed and negative Integumentary, Eyes, ENT, Respiratory,Cardiovascular, GI, , Musculoskeletal, Jeremías, Endocrine, Neurology, Psych,Allergy/ImmunologyConstitutionalReports: Generalized weakness (Improved).ObjectiveVital SignsVital Signs-24 HRS08/16831 2048 2107 2200Temp 98.1 97.9Pulse 105 84 87Resp 20 18B/P 141/76 112/65 112/65B/P MeanPulse Ox 94 96O2 Deliv francisco Nasal cannula Nasal cannula Nasal cannulaO2 Flow Rate 3L 3 3 [id number] 2925 0758 0759 0759Temp 98.3 98.0Pulse 90 77 77Resp 18 18B/P 119/65 120/65 120/65 120/65 120/65B/P MeanPulse Ox 97 98O2 Delivery Nasal cannula Nasal cannulaO2 Flow Rate 3 LITERS 3 [id number] 3259 1401Temp 99.1 99.0Pulse 86 91Resp 16 20B/P 123/64 102/60B/P MeanPulse Ox 98 100O2 Delivery Nasal cannula Nasal cannula Nasal cannulaO2 Flow Rate 2L 3 L [id number]/OutputIntake/Output Summary 24 hours08/16 1900 08/17 0700Intake Total 2205 935Output Total 1000 1200Balance 1205 -265Intake, IV 625 535Intake, Oral 1580 400Output, Urine 1000 1200Current MedicationsOxycodone HCl (Oxyir) 5 MG Q6HPRN PRN POFentanyl (Duragesic) 50 MCG Q72H TOPMiscellaneous (Patch off) 1 PAT Q72H NAInsulin Detemir (Levemir) 65 UNIT DAILY SUBCUTAmlodipine Besylate (Norvasc) 10 MG DAILY PODexamethasone (Decadron) 6 MG DAILY IVDuloxetine HCl (Cymbalta) 60 MG DAILY POLisinopril (Prinivil,Zestril) 40 MG DAILY POMagnesium Oxide (Magox) 400 MG DAILY POMultivitamins (Multivitamin) 1 TAB DAILY POPantoprazole Sodium (Protonix) 40 MG DAILY POTiotropium Bacliff (Spiriva) 1 puffDAILY INHAlbuterol Sulfate (Ventolin) 1 PUFFBID INHAmiodarone HCl (Cordarone) 200 MG BID POApixaban (Eliquis) 5 MG BID POAscorbic Acid (Vitamin C) 500 MG BID POInsulin Detemir (Levemir) 20 UNIT QHS SUBCUTSodium Chloride (Saline Flush Syr(5ML)) 5 ML Q12H IVVancomycin HCl (Vancocin) 1,250 MG Q12H IVSodium Chloride (NSS 0.9% 500ML) 500 MLInsulin Aspart (Humalog Insulin) Low dose sliding scaleAC MEAL SUBCUTBaclofen (Lioresal) 10 MG TID POGabapentin (Neurontin) 300 MG TID POGlucose (Insta-Glucose) 15 GM DAILY NEEDED PRN POSodium Chloride (Saline Flush Syr(5ML)) 5 ML QIDPRN PRN IVExamGeneral Appearance no acute distress, afebrile, alert, awake, co nversantHead atraumatic, normocephalicENT moist mucosal membranesNeck no JVD, suppleCardiovascular normal heart sounds, irregularly irregularRespiratory clear to auscultation, no distress, aerating well, symmetricexpansion, on oxygenAbdomen soft, non-tenderGenitourinary (male) no flank painUrinary no bladder distention, no flank painExtremities no edema, Right diabetic foot leg ulcers skin break down onbilateral lower legsMuscoskeletal full range of motion, normal inspectionNeurological alert, oriented x 3, normal cerebellar functio, normal speech, nomotor deficits, no sensory deficitsSkin AssessmentSkin dry, intactLymphatic no lymphadenopathyPsych/Mental Status normal affect, normal judgementResultsLaboratory DataRecent Labs-24 hours08/16702014 0353ChemistrySodium (136 - 147 mmol/L) 139Potassium (3.5 - 5.1 mmol/L) 4.6Chloride (99 - 110 mmol/L) 103Serum Bicarbonate (20 - 33 mmol/L) 27Anion Gap (10.0 - 20.0) 13.6BUN (7 - 23 mg/dL) 23Creatinine (0.500 - 1.300 mg/dL) 0.634Estimated GFR/1.73 m2 (mL/min) > 60Glucose (70 - 110 mg/dL) 170 HPOC Glucose (70 - 110 mg/dL) 266 H 244 HCalcium (8.3 - 10.7 mg/dL) 8.5Phosphorus (2.5 - 4.5 mg/dL) 3.1Magnesium (1.6 - 2.6 mg/dL) 1.7Total Bilirubin (0.1 - 1.1 mg/dL) 0.3AST (8 - 40 U/L) 13ALT (6 - 54 U/L) 31Alkaline Phosphatase (45 - 117 U/L) 68C-Reactive Protein (0.0 - 0.49 mg/dL) 0.61 HTotal Protein (6.0 - 7.8 g/dL) 5.8 LAlbumin (3.5 - 5.0 g/dL) 2.5 LGlobulin (2.3 - 3.5 g/dL) 3.3Albumin/Globulin Ratio (1.0 - 2.5) 0.8 LHematologyWBC (4.0 - 10.5 x10E3/uL) 19.47 HRBC (4.70 - 6.00 x10E6/uL) 4.98Hgb (14.0 - 18.0 g/dL) 11.9 LHct (42.0 - 52.0 %) 38.9 LMCV (81.0 - 99.0 fL) 78.1 LMCH (27.0 - 31.0 pg) 23.9 LMCHC (32.7 - 35.6 g/dL) 30.6 LRDW (11.5 - 14.0 %) 18.6 HPlt Count (150 - 450 x10E3/uL) 488 HMPV (6.9 - 9.5 fl) 9.7 HImmature Gran % (Auto) (0.1 - 2.0 %) 2.5 HNeut % (Auto) (34 - 64 %) 80.7 HLymph % (Auto) (25 - 45 %) 9.2 LMono % (Auto) (1.7 - 10.6 %) 7.3Eos % (Auto) (0.4 - 7.0 %) 0.1 LBaso % (Auto) (0.1 - 2.0 %) 0.2Abs Immat Gran (auto) (0.0 - 0.1 x10E3/uL) 0.48 HAbsolute Neuts (auto) (1.2 - 7.6 x10E3/uL) 15.73 HAbsolute Lymphs (auto) (1.0 - 3.5 1.73n73A6/uL)Absolute Monos (auto) (0.1 - 1.0 x10E3/uL) 1.42 HAbsolute Eos (auto) (0.1 - 0.7 x10E3/uL) 0.02 LAbsolute Basos (auto) (0.0 - 0.1 x10E3/uL) 0.03Nucleated RBC % (auto) (0 %) 0ToxicologyVancomycin Trough (5 - 10 ug/mL) 15.0 [id number] Glucose (70 - 110 mg/dL) 167 HResults Reviewed labs reviewedAssessment/PlanProblem List1. Pneumonia due to COVID-19 virusA&PContinue current therapy steroids for now may discontinue next 1 to 2 dayscontinue inhalers, oxygen.2. Acute respiratory failure with hypoxiaA&PAs above3. DiabetesA&PIncrease long-acting insulin to 7 units daily given poorly controlled diabeteswhile on steroids. Continue AC at bedtime with sliding scale coverage4. Diabetic foot ulcersA&PLocal wound care.5. AfibA&PContinue amiodarone and novel oral anticoagulant.6. HTN (hypertension)A&PContinue Norvasc, lisinopril7. MRSA (methicillin resistant staph aureus) culture positiveA&amp ;PContinue vancomycin to complete 10-day course. Follow trough. Yesterday 15.0acceptable range.8. DepressionA&PContinue Cymbalta9. Chronic painA&PContinue Cymbalta, fentanyl patch, oxycodone. Continue baclofen. Continuegabapentin.10. GlaucomaA&PContinue ctlxrgalbii46. Vitamin D deficiencyA&PContinue vitamin D oesnxlncut68. DebilityA&PWill need to continue senior living placement as previous.13. GERD (gastroesophageal reflux disease)A&PContinue PPI14. COPD (chronic obstructive pulmonary disease)A&PContinue inhalers, oxygenAdditional NotesDVT prophylaxis with novel oral anticoagulantGI prophylaxis with PPITime spent 35 minutesDisposition plan discharge after completion of antibiotics likely, will discusswith case management as this will be based on the nursing homes availability ofIV vancomycin and negative Covid testing priorResuscitation status Full codePlan discussed with patient, wifeCase discussed with hospice case manager, nursing staffDATE SIGNED: 08/17/20 Electronically SignedTIME SIGNED: 1528 ADAM SANABRIA Name Value Range Interpretation Code Description Data Sanjuana rce(s) Supporting Document(s) ID Date Data Source [id number] 08/17/2020 05:46:00 PM EST [facility] Name Value Range Interpretation Code Description Data Sanjuana rce(s) Supporting Document(s) FGLU 171 mg/dL 70-110 [facility] ID Date Data Source [id number] 08/17/2020 10:50:00 AM EST [facility] Name Value Range Interpretation Code Description Data Sanjuana rce(s) Supporting Document(s) FGLU 167 mg/dL 70-110 [facility] ID Date Data Source [id number] 08/17/2020 05:45:00 AM EST [facility] Name Value Range Interpretation Code Description Data Sanjuana rce(s) Supporting Document(s) C-REACTIVE PROT 0.61 mg/dL 0.0-0.49 [facility] ID Date Data Source [id number] 08/17/2020 05:45:00 AM EST [facility] Name Value Range Interpretation Code Description Data Sanjuana rce(s) Supporting Document(s) MAGNESIUM 1.7 mg/dL 1.6-2.6 [facility] ID Date Data Source [id number] 08/17/2020 05:45:00 AM EST [facility] Name Value Range Interpretation Code Description Data Sanjuana rce(s) Supporting Document(s) DENILSON 3.1 mg/dL 2.5-4.5 [facility] ID Date Data Source [id number] 08/17/2020 05:03:00 AM EST [facility] Name Value Range Interpretation Code Description Data Sanjuana rce(s) Supporting Document(s) WBC 19.47 x10E3/uL 4.0-10.5 [facility] RBC 4.98 x10E6/uL 4.70-6.00 [facility] Hemoglobin 11.9 g/dL 14.0-18.0 [facility] Hematocrit 38.9 % 42.0-52.0 L [facility] MCV 78.1 fL 81.0-99.0 [facility] MCH 23.9 pg 27.0-31.0 [facility] MCHC 30.6 g/dL 32.7-35.6 [facility] RDW 18.6 % 11.5-14.0 [facility] Platelet count 488 x10E3/uL 150-450 [facility] MPV 9.7 fl 6.9-9.5 [facility] Neutrophils 80.7 % 34-64 [facility] Lymphocytes 9.2 % 25-45 [facility] Monocytes 7.3 % 1.7-10.6 [facility] Eosinophils 0.1 % 0.4-7.0 [facility] Basophils 0.2 % 0.1-2.0 [facility] Imm. Gran. 2.5 % 0.1-2.0 [facility] Abs. Neutro. 15.73 x10E3/uL 1.2-7.6 [facility] Abs. Lymph. 1.79 x10E3/uL 1.0-3.5 [facility] Abs. Stokes. 1.42 x10E3/uL 0.1-1.0 [facility] Abs. Eosin. 0.02 x10E3/uL 0.1-0.7 [facility] Abs. Baso. 0.03 x10E3/uL 0.0-0.1 [facility] Abs. Imm. Gran. 0.48 x10E3/uL 0.0-0.1 H [facility] spital ANRBC% 0 % 0 [facility] ID Date Data Source [id number] 08/17/2020 05:45:00 AM EST [facility] Name Value Range Interpretation Code Description Data Sanjuana rce(s) Supporting Document(s) GLU 170 mg/dL 70-110 [facility] Patients taking Sulfasalazine may have f alsely depressedGlucose levels. Patients taking Sulfapyridine may havefalsely elevated Glucose levels. Patients should be drawnfor Glucose before the initial administration of eitherdrug. BUN 23 mg/dL 7-23 [facility] CRE 0.634 mg/dL 0.500-1.300 [facility] GFR > 60 mL/min [facility] CHLORIDE 103 mmol/L 99-110 [facility] NA 139 mmol/L 136-147 [facility] POTASSIUM 4.6 mmol/L 3.5-5.1 [facility] TCO2 27 mmol/L 20-33 [facility] ANION GAP 13.6 10.0-20.0 [facility] CA 8.5 mg/dL 8.3-10.7 [facility] ALKALINE PHOS 68 U/L 45-117 [facility] TP 5.8 g/dL 6.0-7.8 [facility] ALB 2.5 g/dL 3.5-5.0 [facility] ESRD Dialysis patient Albumin reference range: 2.9-4.4 g/dL GL 3.3 g/dL 2.3-3.5 [facility] A/G 0.8 1.0-2.5 [facility] T. BILIRUBIN 0.3 mg/dL 0.1-1.1 [facility] The Dimension [place] Total Bilirubin is n ot recommended forpatients undergoing treatment with eltrombopag (Promacta)due to the potential for falsely elevated results. ALTI 31 U/L 6-54 [facility] Patients taking Sulfasalazine and/or Sul fapyridine may havefalsely depressed ALT levels. Patients should be drawn forALT before the initial administration of either drug. AST 13 U/L 8-40 [facility] Patients taking Sulfasalazine and/or Sul fapyridine may havefalsely depressed AST levels. Patients should be drawn forAST before the initial administration of either drug. ID Date Data Source [id number] 08/16/2020 09:06:00 PM EST [facility] Name Value Range Interpretation Code Description Data Sanjuana rce(s) Supporting Document(s) FGLU 244 mg/dL 70-110 [facility] ID Date Data Source [id number] 08/16/2020 08:48:00 PM EST [facility] Name Value Range Interpretation Code Description Data Sanjuana rce(s) Supporting Document(s) VANCOMYCIN TROU 15.0 ug/mL 5-10 [facility] FOR SKIN AND SKIN STRUCTURE INFECTIONS, GUIDELINES RECOMMENDA TROUGH OF 10. FOR SEVERE INFECTIONS, (PNEUMONIA, OSTEOMYELITIS, MENINGITISAND BACTEREMIA) A TARGET TROUGH OF 15 TO 20 IS RECOMMENDED. ID Date Data Source [id number] 08/16/2020 08:26:00 PM EST [facility] Name Value Range Interpretation Code Description Data Sanjuana rce(s) Supporting Document(s) FGLU 266 mg/dL 70-110 [facility] ID Date Data Source [id number] 08/16/2020 07:28:00 PM EST [facility] Name Value Range Interpretation Code Description Data Sanjuana rce(s) Supporting Document(s) FGLU 206 mg/dL 70-110 [facility] ID Date Data Source [id number] 08/16/2020 09:58:00 AM EST [facility] [address] [id number] NOTEPATIENT NAME: DIANA OLIVERA PHYSICIAN: KAMLA LANIER, MDAUTHOR: Huy Lanier MD. DATE: 08/11/20 MR#: [id number] NOTE DATE: 08/16/20 RM#: [id number] TIME: 1011 : 55SubjectiveCC/Hx Present IllnessShortness of breathEvents Since Last EntryPt seen and examined at the bedside. Pt is now on 4L of oxygen (previouslyrequired 5L). Pt has completed his remdesivir course. Case management isassisting with placement to [facility]. Today is day 4 of IV vancomycin(for MRSA in sputum). WBC is elevated but CRP has downtrended to 1. Thus, Isuspect that the WBC elevation is from the dexamethasone administration.ObjectiveVital SignsVital Signs-24 [id number]/[id number] 7258 1814 2130Temp 98.8 98.2Pulse 97 98 86Resp 20 22B/P 118/66 114/68 135/73B/P MeanPulse Ox 96 96O2 Delivery Nasal cannula Nasal cannula Nasal cannulaO2 Flow Rate 4 L 5L [id number] 1273 0225 0508 0742Temp 97.9 97.8 98.2Pulse 91 88 82Resp 17 18 17B/P 135/73 137/72 133/71 133/71B/P MeanPulse Ox 97 97 98O2 Delivery Nasal cannula Nasal cannula Nasal cannula NasalcannulaO2 Flow Rate 4 4 4 [id number] 0743TempPulse 82RespB/P 133/71 133/71B/P MeanPulse OxO2 DeliveryO2 Flow ZgjjFhU9Csbmkt/OutputIntake/Output Summary 24 hours08/15 1900 08/16 0700Intake Total 1370 1045Output Total 900 1200Balance 470 -155Intake, IV 350 545Intake, Oral 1020 500Number 1BowelMovementsOutput, Urine 900 1200Current MedicationsInsulin Detemir (Levemir) 65 UNIT DAILY SUBCUTAmlodipine Besylate (Norvasc) 10 MG DAILY POAzithromycin (Zithromax) 500 MG Q24H IVDexamethasone (Decadron) 6 MG DAILY IVDuloxetine HCl (Cymbalta) 60 MG DAILY POLisinopril (Prinivil,Zestril) 40 MG DAILY POMagnesium Oxide (Magox) 400 MG DAILY POMultivitamins (Multivitamin) 1 TAB DAILY POPantoprazole Sodium (Protonix) 40 MG DAILY POTiotropium Bacliff (Spiriva) 1 puffDAILY INHAlbuterol Sulfate (Ventolin) 1 PUFFBID INHAmiodarone HCl (Cordarone) 200 MG BID POApixaban (Eliquis) 5 MG BID POAscorbic Acid (Vitamin C) 500 MG BID POInsulin Detemir (Levemir) 20 UNIT QHS SUBCUTSodium Chloride (Saline Flush Syr(5ML)) 5 ML Q12H IVVancomycin HCl (Vancocin) 1,250 MG Q12H IVSodium Chloride (NSS 0.9% 500ML) 500 MLInsulin Aspart (Humalog Insulin) Low dose sliding scaleAC MEAL SUBCUTBaclofen (Lioresal) 10 MG TID POGabapentin (Neurontin) 300 MG TID POGlucose (Insta-Glucose) 15 GM DAILY NEEDED PRN POOxycodone HCl (Oxyir) 5 MG Q6HPRN PRN POSodium Chloride (Saline Flush Syr(5ML)) 5 ML QIDPRN PRN IVExamGeneral Appearance no acute distress, afebrile, alert, awake, conversantHead atraumatic, normocephalicNeck suppleCardiovascular normal heart sounds, irregularly irregularRespiratory clear to auscultation, no distress, aerating well, symmetricexpansion, on oxygenAbdomen soft, non- tenderGenitourinary (male) no flank painUrinary no flank painExtremities no edema, Right diabetic foot leg ulcers skin break down onbilateral lower legsNeurological alert, oriented x 3Psych/Mental Status mood neutralResultsLaboratory DataRecent Labs-24 hours08/15123 1553 2149 0425ChemistrySodium (136 - 147 mmol/L) 140Potassium (3.5 - 5.1 mmol/L) 5.0Chloride (99 - 110 mmol/L) 103Serum Bicarbonate (20 - 33 mmol/L) 30Anion Gap (10.0 - 20.0) 12.0BUN (7 - 23 mg/dL) 20Creatinine (0.500 - 1.300 mg/dL) 0.803Estimated GFR/1.73 m2 (mL/min) > 60Glucose (70 - 110 mg/dL) 155 HPOC Glucose (70 - 110 mg/dL) 245 H 257 H 292 HCalcium (8.3 - 10.7 mg/dL) 8.8Phosphorus (2.5 - 4.5 mg/dL) 3.4Magnesium (1.6 - 2.6 mg/dL) 1.7Total Bilirubin (0.1 - 1.1 mg/dL) 0.5AST (8 - 40 U/L) 14ALT (6 - 54 U/L) 34Alkaline Phosphatase (45 - 117 U/L) 81C-Reactive Protein (0.0 - 0.49 mg/dL) 1.02 HTotal Protein (6.0 - 7.8 g/dL) 6.5Albumin (3.5 - 5.0 g/dL) 2.6 LGlobulin (2.3 - 3.5 g/dL) 3.9 HAlbumin/Globulin Ratio (1.0 - 2.5) 0.7 LHematologyWBC (4.0 - 10.5 x10E3/uL) 17.29 HRBC (4.70 - 6.00 x10E6/uL) 5.40Hgb (14.0 - 18.0 g/dL) 13.1 LHct (42.0 - 52.0 %) 42.5MCV (81.0 - 99.0 fL) 78.7 LMCH (27.0 - 31.0 pg) 24.3 LMCHC (32.7 - 35.6 g/dL) 30.8 LRDW (11.5 - 14.0 %) 18.9 HPlt Count (150 - 450 x10E3/uL) 540 HMPV (6.9 - 9.5 fl) 9.4Immature Gran % (Auto) (0.1 - 2.0 %) 2.9 HNeut % (Auto) (34 - 64 %) 78.6 HLymph % (Auto) (25 - 45 %) 10.9 LMono % (Auto) (1.7 - 10.6 %) 7.3Eos % (Auto) (0.4 - 7.0 %) 0.1 LBaso % (Auto) (0.1 - 2.0 %) 0.2Abs Immat Gran (auto) (0.0 - 0.1 x10E3/uL) 0.51 HAbsolute Neuts (auto) (1.2 - 7.6 x10E3/uL) 13.59 HAbsolute Lymphs (auto) (1.0 - 3.5 x10E3/uL) 1.89Absolute Monos (auto) (0.1 - 1.0 x10E3/uL) 1.26 HAbsolute Eos (auto) (0.1 - 0.7 x10E3/uL) 0.01 LAbsolute Basos (auto) (0.0 - 0.1 x10E3/uL) 0.03Nucleated RBC % (auto) (0 %) 0Results Reviewed labs reviewedAssessment/PlanProblem List1. Pneumonia due to COVID-19 virusA&P- Completed IV remdesivir 5 day course- WBC is elevated but CRP has downtrended to 1. Thus, I suspect that the WBCelevation is from the dexamethasone administration- IV dexamethasone 6 mg daily- Spirivia 1 puff daily- Albuterol 1 puff bid- IV azithromycin 500 mg daily- Vit C 500 mg PO bid- Vit D level was checked and is wnl- 4L NC oxygen- Encourage incentive spirometer2. Acute respiratory failure with hypoxiaA&P- Management as above3. DiabetesA&P- Levemir 65 units sq daily- Levemir 20 units sq qhs- Novolog low dose sliding scale4. Diabetic foot ulcersA&P- IV antibiotics as above- Wound care nurse recommendations are appreciated (dressing as per the woundservice)5. AfibA&P- Eliquis 5 mg PO bid- Amiodarone 200 mg PO bid6. HTN (hypertension)A&P- Lisinopril 40 mg PO daily- Amlodipine 10 mg PO daily7. MRSA (methicillin resistant staph aureus) culture positiveA&P- Sputum cx positive for MRSA- IV vancomycin 1250 mg q12 --> Today is day #4 (08/16/2020)Additional NotesDVT prophylaxis: Eliquis as aboveResuscitation status Full codeDATE SIGNED: 08/16/20 Electronically SignedTIME SIGNED: 1899 KAMLA LANIER MD Name Value Range Interpretation Code Description Data Sanjuana rce(s) Supporting Document(s) ID Date Data Source [id number] 08/16/2020 10:28:00 PM EST [facility] Name Value Range Interpretation Code Description Data Sanjuana rce(s) Supporting Document(s) FGLU 149 mg/dL 70-110 [facility] ID Date Data Source [id number] 08/16/2020 06:53:00 AM EST [facility] Name Value Range Interpretation Code Description Data Sanjuana rce(s) Supporting Document(s) C-REACTIVE PROT 1.02 mg[facility]dL 0.0-0.49 [facility] [id number] 08/16/2020 06:53:00 AM EST [facility] Name Value Range Interpretation Code Description Data Sanjuana rce(s) Supporting Document(s) MAGNESIUM 1.7 mg/dL 1.6-2.6 [facility] ID Date Data Source [id number] 08/16/2020 06:53:00 AM EST [facility] Name Value Range Interpretation Code Description Data Sanjuana rce(s) Supporting Document(s) DENILSON 3.4 mg/dL 2.5-4.5 [facility] ID Date Data Source [id number] 08/16/2020 06:53:00 AM EST [facility] Name Value Range Interpretation Code Description Data Sanjuana rce(s) Supporting Document(s) GLU 155 mg/dL 70-110 [facility] Patients taking Sulfasalazine may have f alsely depressedGlucose levels. Patients taking Sulfapyridine may havefalsely elevated Glucose levels. Patients should be drawnfor Glucose before the initial administration of eitherdrug. BUN 20 mg/dL 7-23 [facility] CRE 0.803 mg/dL 0.500-1.300 [facility] GFR > 60 mL/min [facility] CHLORIDE 103 mmol/L 99-110 [facility] NA 140 mmol/L 136-147 [facility] POTASSIUM 5.0 mmol/L 3.5-5.1 [facility] TCO2 30 mmol/L 20-33 [facility] ANION GAP 12.0 10.0-20.0 [facility] CA 8.8 mg/dL 8.3-10.7 [facility] ALKALINE PHOS 81 U/L 45-117 [facility] TP 6.5 g/dL 6.0-7.8 [facility] ALB 2.6 g/dL 3.5-5.0 [facility] ESRD Dialysis patient Albumin reference range: 2.9-4.4 g/dL GL 3.9 g/dL 2.3-3.5 [facility] A/G 0.7 1.0-2.5 [facility] T. BILIRUBIN 0.5 mg/dL 0.1-1.1 [facility] [employer] [place] Total Bilirubin is n ot recommended forpatients undergoing treatment with eltrombopag (Promacta)due to the potential for falsely elevated results. ALTI 34 U/L 6-54 [facility] Patients taking Sulfasalazine and/or Sul fapyridine may havefalsely depressed ALT levels. Patients should be drawn forALT before the initial administration of either drug. AST 14 U/L 8-40 [facility] Patients taking Sulfasalazine and/or Sul fapyridine may havefalsely depressed AST levels. Patients should be drawn forAST before the initial administration of either drug. ID Date Data Source [id number] 08/16/2020 06:06:00 AM [facility] Name Value Range Interpretation Code Description Data Sanjuana rce(s) Supporting Document(s) WBC 17.29 x10E3/uL 4.0-10.5 [facility] RBC 5.40 x10E6/uL 4.70-6.00 [facility] Hemoglobin 13.1 g/dL 14.0-18.0 [facility] Hematocrit 42.5 % 42.0-52.0 [facility] MCV 78.7 fL 81.0-99.0 [facility] MCH 24.3 pg 27.0-31.0 [facility] MCHC 30.8 g/dL 32.7-35.6 [facility] RDW 18.9 % 11.5-14.0 [facility] Platelet count 540 x10E3/uL 150-450 H [facility] ital MPV 9.4 fl 6.9-9.5 [facility] Neutrophils 78.6 % 34-64 [facility] Lymphocytes 10.9 % 25-45 [facility] Monocytes 7.3 % 1.7-10.6 N [facility] Eosinophils 0.1 % 0.4-7.0 L [facility] Basophils 0.2 % 0.1-2.0 N [facility] [facility] Imm[facility] Gran. 2.9 % 0.1-2.0 [facility] Abs. Neutro. 13.59 x10E3/uL 1.2-7.6 [facility] Abs. Lymph. 1.89 x10E3/uL 1.0-3.5 [facility] Abs. Stokes. 1.26 x10E3/uL 0.1-1.0 [facility] Abs. Eosin. 0.01 x10E3/uL 0.1-0.7 [facility] Abs. Baso. 0.03 x10E3/uL 0.0-0.1 [facility] Abs. Imm. Gran. 0.51 x10E3/uL 0.0-0.1 [facility] ANRBC% 0 % 0 [facility] ID Date Data Source [id number] 08/15/2020 11:23:00 PM [facility] Name Value Range Interpretation Code Description Data [facility](s) Supporting Document(s) FGLU 292 mg/dL 70-110 [facility] ID Date Data Source [id number] 08/15/2020 03:58:00 PM EST [facility] Name Value Range Interpretation Code Description Data [facility](s) Supporting Document(s) FGLU 257 mg/dL 70-110 [facility] ID Date Data Source [id number] 08/15/2020 11:26:00 AM EST [facility] Name Value Range Interpretation Code Description Data [facility] r[facility](s) Supporting Document(s) FGLU 245 mg/dL 70-110 [facility] ID Date Data Source [id number] 08/15/2020 09:01:00 AM EST [facility] [place] [address] [id number] NOTEPATIENT NAME: DIANA OLIVERA PHYSICIAN: KAMLA LANIER, MDAUTHOR: Huy Lanier MD. DATE: 08/11/20 MR#: [id number] NOTE DATE: 08/15/20 RM#: [id number] TIME: 0907 : 55SubjectiveCC/Hx Present IllnessShortness of breathEvents Since Last EntryPt seen and examined at the bedside. The pt remains stable on 5L of oxygen. Pt's WBC is uptrending (he is on dexamethasone). He is on IV vancomycin for MR Delmi the sputum. Pt looks clinically well and is feeling good. Case management istrying to get the pt to [facility] (pt came from [facility]).ObjectiveVital SignsVital Signs-24 HRS08/[id number] 8698 1018 1445 1511Temp 98.0 98.0 97.9 97.9Pulse 92 95 96 97Resp 18 16B/P 112/60 112/60 135/68 135/68B/P MeanPulse Ox 95 92 95 94O2 Delivery Nasal cannula Nasal cannula Nasal cannulaO2 Flow Rate 4 5L [id number]/14838 2006 2146 0200Temp 97.8 97.9 97.4Pulse 96 97 93 88Resp 18 18 18B/P 151/79 151/79 147/80 145/77B/P MeanPulse Ox 95 95 97O2 Delivery Nasal cannula Nasal cannula Nasal cannulaO2 Flow Rate 5L 4L [id number] 3812 0756 0757Temp 97.8Pulse 87 87Resp 18B/P 111/64 111/64 111/64 111/64B/P MeanPulse Ox 97O2 Delivery Nasal cannulaO2 Flow Rate 4HFuZ1Rdcqxm/OutputIntake/Output Summary 24 hours08/14 1900 08/15 0700Intake Total 1930 1225Output Total 1500 800Balance 430 425Intake, IV 850 625Intake, Oral 1080 600Output, Urine 1500 800Current MedicationsInsulin Detemir (Levemir) 65 UNIT DAILY SUBCUTAmlodipine Besylate (Norvasc) 10 MG DAILY POAzithromycin (Zithromax) 500 MG Q24H IVDexamethasone (Decadron) 6 MG DAILY IVDuloxetine HCl (Cymbalta) 60 MG DAILY POLisinopril (Prinivil,Zestril) 40 MG DAILY POMagnesium Oxide (Magox) 400 MG DAILY POMultivitamins (Multivitamin) 1 TAB DAILY POPantoprazole Sodium (Protonix) 40 MG DAILY POTiotropium Bacliff (Spiriva) 1 puffDAILY INHAlbuterol Sulfate (Ventolin) 1 PUFFBID INHAmiodarone HCl (Cordarone) 200 MG BID POApixaban (Eliquis) 5 MG BID POAscorbic Acid (Vitamin C) 500 MG BID POInsulin Detemir (Levemir) 20 UNIT QHS SUBCUTSodium Chloride (Saline Flush Syr(5ML)) 5 ML Q12H IVVancomycin HCl (Vancocin) 1,250 MG Q12H IVSodium Chloride (NSS 0.9% 500ML) 500 MLInsulin Aspart (Humalog Insulin) Low dose sliding scaleAC MEAL SUBCUTBaclofen (Lioresal) 10 MG TID POGabapentin (Neurontin) 300 MG TID POGlucose (Insta-Glucose) 15 GM DAILY NEEDED PRN POOxycodone HCl (Oxyir) 5 MG Q6HPRN PRN POSodium Chloride (Saline Flush Syr(5ML)) 5 ML QIDPRN PRN IVExamGeneral Appearance no acute distress, afebrile, alert, awake, conversantHead atraumatic, normocephalicNeck suppleCardiovascular normal heart sounds, irregularly irregularRespiratory symmetric expansion, on oxygen, Coarse breath sounds bilaterallyAbdomen soft, non-tenderGenitourinary (male) no flank painUrinary no flank painExtremities no edema, Right diabetic foot leg ulcers skin break down onbilateral lower legsNeurological alert, oriented x 3Psych/Mental Status mood neutralResultsLaboratory DataRecent Labs-24 hours08/14051483 0600 2019 0605ChemistryGlucose (70 - 110 mg/dL) 315 HPOC Glucose (70 - 110 mg/dL) 276 H 360 H 165 H01/967692KanohbuqyHaxwzs PendingPotassium PendingChloride PendingSerum Bicarbonate PendingAnion Gap PendingBUN PendingCreatinine PendingGlucose PendingCalcium PendingPhosphorus PendingMagnesium PendingTotal Bilirubin PendingAST PendingALT PendingAlkaline Phosphatase PendingC-Reactive Protein PendingTotal Protein PendingAlbumin PendingGlobulin PendingAlbumin/Globulin Ratio PendingHematologyWBC (4.0 - 10.5 x10E3/uL) 16.99 HRBC (4.70 - 6.00 x10E6/uL) 5.45Hgb (14.0 - 18.0 g/dL) 13.1 LHct (42.0 - 52.0 %) 42.8MCV (81.0 - 99.0 fL) 78.5 LMCH (27.0 - 31.0 pg) 24.0 LMCHC (32.7 - 35.6 g/dL) 30.6 LRDW (11.5 - 14.0 %) 19.1 HPlt Count (150 - 450 x10E3/uL) 558 HMPV (6.9 - 9.5 fl) 9.4Immature Gran % (Auto) (0.1 - 2.0 %) 2.8 HNeut % (Auto) (34 - 64 %) 74.4 HLymph % (Auto) (25 - 45 %) 12.7 LMono % (Auto) (1.7 - 10.6 %) 9.7Eos % (Auto) (0.4 - 7.0 %) 0.2 LBaso % (Auto) (0.1 - 2.0 %) 0.2Abs Immat Gran (auto) (0.0 - 0.1 x10E3/uL) 0.48 HAbsolute Neuts (auto) (1.2 - 7.6 x10E3/uL) 12.64 HAbsolute Lymphs (auto) (1.0 - 3.5 x10E3/uL) 2.15Absolute Monos (auto) (0.1 - 1.0 x10E3/uL) 1.65 HAbsolute Eos (auto) (0.1 - 0.7 x10E3/uL) 0.03 LAbsolute Basos (auto) (0.0 - 0.1 x10E3/uL) 0.04Nucleated RBC % (auto) (0 %) 0ToxicologyVancomycin Trough PendingResults Reviewed labs reviewedAssessment/PlanProblem List1. Pneumonia due to COVID-19 virusA&P- Completed IV remdesivir 5 day course- IV dexamethasone 6 mg daily- Spirivia 1 puff daily- Albuterol 1 puff bid- IV azithromycin 500 mg daily- Vit C 500 mg PO bid- Vit D level was checked and is wnl- 5L NC oxygen- Encourage incentive spirometer2. Acute respiratory failure with hypoxiaA&P- Management as above3. DiabetesA&P- Levemir 65 units sq daily- Levemir 20 units sq qhs- Novolog low dose sliding scale4. Diabetic foot ulcersA&P- IV antibiotics as above- Wound care nurse recommendations are appreciated (dressing as per the woundservice)5. AfibA&P- Eliquis 5 mg PO bid- Amiodarone 200 mg PO bid6. HTN (hypertension)A&P- Lisinopril 40 mg PO daily- Amlodipine 10 mg PO daily7. MRSA (methicillin resistant staph aureus) culture positiveA&P- Sputum cx positive for MRSA- IV vancomycin 1250 mg u67Gvpobrjfoo NotesDVT prophylaxis: Eliquis as aboveResuscitation status Full codeDATE SIGNED: 08/15/20 Electronically SignedTIME SIGNED: 1855 KAMLA LANIER MD Name Value Range Interpretation Code Description Data [facility](s) Supporting Document(s) ID Date Data Source [id number] 08/15/2020 09:28:00 AM EST [facility] Name Value Range Interpretation Code Description Data [facility](s) Supporting Document(s) WBC 16.99 x10E3/uL 4.0-10.5 [facility] RBC 5.45 x10E6/uL 4.70-6.00 [facility] Hemoglobin 13.1 g/dL 14.0-18.0 L [facility] Hematocrit 42.8 % 42.0-52.0 [facility] MCV 78.5 fL 81.0-99.0 L [facility] MCH 24.0 pg 27.0-31.0 L [facility] MCHC 30.6 g/dL 32.7-35.6 [facility] RDW 19.1 % 11.5-14.0 [facility] Platelet count 558 x10E3/uL 150-450 [facility] MPV 9.4 fl 6.9-9.5 [facility] Neutrophils 74.4 % 34-64 [facility] Lymphocytes 12.7 % 25-45 [facility] Monocytes 9.7 % 1.7-10.6 [facility] Eosinophils 0.2 % 0.4-7.0 [facility] Basophils 0.2 % 0.1-2.0 [facility] Imm. Gran. 2.8 % 0.1-2.0 [facility] Abs. Neutro. 12.64 x10E3/uL 1.2-7.6 [facility] Abs. Lymph. 2.15 x10E3/uL 1.0-3.5 [facility] Abs. Stokes. 1.65 x10E3/uL 0.1-1.0 [facility] Abs. Eosin. 0.03 x10E3/uL 0.1-0.7 [facility] Abs. Baso. 0.04 x10E3/uL 0.0-0.1 [facility] Abs. Imm. Gran. 0.48 x10E3/uL 0.0-0.1 [facility] ANRBC% 0 % 0 N [facility] DIFFERENTIAL CONFIRMED BY SLIDE REVIEW. [facility]PHOLOG[facility] 1[facility] W[facility] MORPH[facility]Y EXPECTED RESULT:NORMAL = NO REMARKABLE MORPHOLOGYAny findings other than Normal will be reported and areconsidered Abnormal. The significance of Abnormal findingsare to be clinically correlated by the provider. ID Date Data Source [id number] 08/15/2020 09:25:00 AM EST [facility] Name Value Range Interpretation Code Description Data [facility] r[facility](s) Supporting Document(s) VANCOMYCIN TROU 15.7 ug/mL 5-10 [facility] FOR SKIN AND SKIN STRUCTURE INFECTIONS, GUIDELINES RECOMMENDA TROUGH OF 10. FOR SEVERE INFECTIONS, (PNEUMONIA, OSTEOMYELITIS, MENINGITISAND BACTEREMIA) A TARGET TROUGH OF 15 TO 20 IS RECOMMENDED. ID Date Data Source [id number] 08/15/2020 09:13:00 AM EST [facility] Name Value Range Interpretation Code Description [facility]) C-REACTIVE PROT 1.54 mg/dL 0.0-0.49 [facility] ID Date Data Source [id number] 08/15/2020 09:13:00 AM EST [facility] Name Value Range Interpretation Code Description Data Sanjuana rce(s) Supporting Document(s) GLU 144 mg/dL 70-110 [facility] Patients taking Sulfasalazine may have f alsely depressedGlucose levels. Patients taking Sulfapyridine may havefalsely elevated Glucose levels. Patients should be drawnfor Glucose before the initial administration of eitherdrug. BUN 18 mg/dL 7-23 [facility] CRE 0.714 mg/dL 0.500-1.300 [facility] GFR > 60 mL/min [facility] CHLORIDE 100 mmol/L 99-110 [facility] NA 135 mmol/L 136-147 L [facility] POTASSIUM 4.9 mmol/L 3.5-5.1 [facility] TCO2 30 mmol/L 20-33 [facility] ANION GAP 9.9 10.0-20.0 L [facility] CA 8.8 mg/dL 8.3-10.7 [facility] ALKALINE PHOS 80 U/L 45-117 [facility] TP 6.4 g/dL 6.0-7.8 [facility] ALB 2.5 g/dL 3.5-5.0 [facility] ESRD Dialysis patient Albumin reference range: 2.9-4.4 g/dL GL 3.9 g/dL 2.3-3.5 [facility] A/G 0.6 1.0-2.5 [facility] T. BILIRUBIN 0.6 mg/dL 0.1-1.1 [facility] The Dimension [place] Total Bilirubin is n ot recommended forpatients undergoing treatment with eltrombopag (Promacta)due to the potential for falsely elevated results. ALTI 33 U/L 6-54 [facility] Patients taking Sulfasalazine and/or Sul fapyridine may havefalsely depressed ALT levels. Patients should be drawn forALT before the initial administration of either drug. AST 23 U/L 8-40 [facility] Patients taking Sulfasalazine and/or Sul fapyridine may havefalsely depressed AST levels. Patients should be drawn forAST before the initial administration of either drug. ID Date Data Source [id number] 08/15/2020 09:13:00 AM [facility] Name Value Range Interpretation Code Description Data [facility] r[facility](s) Supporting Document(s) MAGNESIUM 1.7 mg/dL 1.6-2.6 [facility] ID Date Data Source [id number] 08/15/2020 09:13:00 AM EST [facility] Name Value Range Interpretation Code Description Data [facility] r[facility](s) Supporting Document(s) DENILSON 3.6 mg/dL 2.5-4.5 [facility] ID Date Data Source [id number] 08/15/2020 06:09:00 AM EST [facility] Name Value Range Interpretation Code Description Data Sanjuana rce(s) Supporting Document(s) FGLU 165 mg/dL 70-110 [facility] ID Date Data Source [id number] 08/14/2020 08:37:00 PM EST [facility] Name Value Range Interpretation Code Description Data [facility]ana rce(s) Supporting Document(s) FGLU 360 mg/dL 70-110 [facility] ID Date Data Source [id number] 08/14/2020 05:43:00 PM EST [facility] COMMENTS TO LAB: CRITICAL HIGH Name Value Range Interpretation Code Description Data [facility](s) Supporting Document(s) GLU 315 mg/dL 70-110 [facility] Patients taking Sulfasalazine may have f alsely depressedGlucose levels. Patients taking Sulfapyridine may havefalsely elevated Glucose levels. Patients should be drawnfor Glucose before the initial administration of eitherdrug. ID Date Data Source [id number] 08/14/2020 03:36:00 PM EST [facility] Name Value Range Interpretation Code Description Data [facility] r[facility](s) Supporting Document(s) FGLU 276 mg/dL 70-110 [facility] ID Date Data Source [id number] 08/14/2020 08:36:00 AM [facility] [place], [place] [id number] NOTEPATIENT NAME: DIANA OLIVERA PHYSICIAN: KAMLA LANIER MDAUTHOR: Huy Lanier MD. DATE: 08/11/20 MR#: [id number] NOTE DATE: 08/14/20 RM#: [id number] TIME: 0840 : 55SubjectiveCC/Hx Present IllnessShortness of breathEvents Since Last EntryPt seen and examined at the bedside. Pt was transferred to the floor. He is on5 L of oxygen via nasal cannula and he is able to maintain his oxygenation. Heappears comfortable. Case management has reached out to [facility] if they have a bed for him (he came to us from [facility]). oPrtia is working on disposition.ObjectiveVital SignsVital Signs-24 HRS08/13845 0854 0940 1000 1215Temp 96.8 96.8Pulse 89RespB/P 152/71 123/60B/P MeanPulse OxO2 Delivery VapothermO2 Flow Rate 25L 30%WbZ68908/[id number] 4084 2045 2045 2147Temp 96.8 98.0 97.6Pulse 88 90 91Resp 22 18B/P 140/79 154/80 154/80 154/80B/P MeanPulse Ox 96 95O2 Delivery Nasal cannula Nasal cannulaO2 Flow Rate 5L 5DjC08808/14414087 0559Temp 97.1 97.6Pulse 85 86Resp 18 18B/P 146/79 143/78B/P MeanPulse Ox 93 91O2 Delivery Nasal cannula Nasal cannulaO2 Flow Rate 5 2EqF4Jywpyd/OutputIntake/Output Summary 24 hours08/13 1900 08/14 0700Intake Total 2410 1855Output Total 800 2850Balance 1610 -995Intake, IV 850 775Intake, Oral 1560 1040Intake, Tube 40IrrigantNumber 1BowelMovementsOutput, Urine 800 2850Patient 80 kgWeightCurrent MedicationsAmlodipine Besylate (Norvasc) 10 MG DAILY PO (UNVr)Azithromycin (Zithromax) 500 MG Q24H IVDexamethasone (Decadron) 6 MG DAILY IVDuloxetine HCl (Cymbalta) 60 MG DAILY POInsulin Detemir (Levemir) 45 UNIT DAILY SUBCUT (UNVr)Lisinopril (Prinivil,Zestril) 20 MG DAILY PO (CAN)Lisinopril (Prinivil,Zestril) 40 MG DAILY POMagnesium Oxide (Magox) 400 MG DAILY POMultivitamins (Multivitamin) 1 TAB DAILY POPantoprazole Sodium (Protonix) 40 MG DAILY POTiotropium Bacliff (Spiriva) 1 puffDAILY INHAlbuterol Sulfate (Ventolin) 1 PUFFBID INHAmiodarone HCl (Cordarone) 200 MG BID POApixaban (Eliquis) 5 MG BID POAscorbic Acid (Vitamin C) 500 MG BID POInsulin Detemir (Levemir) 20 UNIT QHS SUBCUTSodium Chloride (Saline Flush Syr(5ML)) 5 ML Q12H IVVancomycin HCl (Vancocin) 1,250 MG Q12H IVSodium Chloride (NSS 0.9% 500ML) 500 MLInsulin Aspart (Humalog Insulin) Low dose sliding scaleAC MEAL SUBCUTBaclofen (Lioresal) 10 MG TID POGabapentin (Neurontin) 300 MG TID POGlucose (Insta-Glucose) 15 GM DAILY NEEDED PRN POOxycodone HCl (Oxyir) 5 MG Q6HPRN PRN POSodium C hloride (Saline Flush Syr(5ML)) 5 ML QIDPRN PRN IVVancomycin HCl (Vancocin) 1,500 MG Q12H IV (CAN)Sodium Chloride (NSS 0.9% 500ML) 500 MLRemdesivir (VEKLURY) 100 MG DAILY@2100 IVSodium Chloride (NSS 0.9% 250ML) 250 MLExamGeneral Appearance no acute distress, afebrile, alert, awake, conversantHead atraumatic, normocephalicNeck suppleCardiovascular normal heart sounds, irregularly irregularRespiratory symmetric expansion, on oxygen, Coarse breath sounds bilaterallyAbdomen soft, non-tenderGenitourinary (male) no flank painUrinary no flank painExtremities no edema, Right diabetic foot leg ulcers skin break down onbilateral lower legsNeurological alert, oriented x 3Psych/Mental Status mood neutralResultsLaboratory DataRecent Labs-24 hours08/[id number] 7142 0540 0541ChemistrySodium (136 - 147 mmol/L) 141Potassium (3.5 - 5.1 mmol/L) 4.5Chloride (99 - 110 mmol/L) 101Serum Bicarbonate (20 - 33 mmol/L) 32Anion Gap (10.0 - 20.0) 12.5BUN (7 - 23 mg/dL) 14Creatinine (0.500 - 1.300 mg/dL) 0.656Estimated GFR/1.73 m2 (mL/min) > 60Glucose (70 - 110 mg/dL) 137 HPOC Glucose (70 - 110 mg/dL) 246 H 260 H 133 HCalcium (8.3 - 10.7 mg/dL) 8.5Phosphorus (2.5 - 4.5 mg/dL) 3.7Magnesium (1.6 - 2.6 mg/dL) 1.8Total Bilirubin (0.1 - 1.1 mg/dL) 0.4AST (8 - 40 U/L) 17ALT (6 - 54 U/L) 34Alkaline Phosphatase (45 - 117 U/L) 67C- Reactive Protein (0.0 - 0.49 mg/dL) 2.48 HTotal Protein (6.0 - 7.8 g/dL) 6.5Albumin (3.5 - 5.0 g/dL) 2.5 LGlobulin (2.3 - 3.5 g/dL) 4.0 HAlbumin/Globulin Ratio (1.0 - 2.5) 0.6 LHematologyWBC (4.0 - 10.5 x10E3/uL) 13.08 HRBC (4.70 - 6.00 x10E6/uL) 5.32Hgb (14.0 - 18.0 g/dL) 12.5 LHct (42.0 - 52.0 %) 41.4 LMCV (81.0 - 99.0 fL) 77.8 LMCH (27.0 - 31.0 pg) 23.5 LMCHC (32.7 - 35.6 g/dL) 30.2 LRDW (11.5 - 14.0 %) 18.5 HPlt Count (150 - 450 x10E3/uL) 494 HMPV (6.9 - 9.5 fl) 9.5Immature Gran % (Auto) (0.1 - 2.0 %) 1.8Neut % (Auto) (34 - 64 %) 75.3 HLymph % (Auto) (25 - 45 %) 11.2 LMono % (Auto) (1.7 - 10.6 %) 11.5 HEos % (Auto) (0.4 - 7.0 %) 0 LBaso % (Auto) (0.1 - 2.0 %) 0.2Abs Immat Gran (auto) (0.0 - 0.1 x10E3/uL) 0.23 HAbsolute Neuts (auto) (1.2 - 7.6 x10E3/uL) 9.86 HAbsolute Lymphs (auto) (1.0 - 3.5 x10E3/uL) 1.46Absolute Monos (auto) (0.1 - 1.0 x10E3/uL) 1.51 HAbsolute Eos (auto) (0.1 - 0.7 x10E3/uL) 0.00 LAbsolute Basos (auto) (0.0 - 0.1 x10E3/uL) 0.02Nucleated RBC % (auto) (0 %) 0Results Reviewed labs reviewedAssessment/PlanProbl em List1. Pneumonia due to COVID-19 virusA&P- IV remdesivir 100 mg daily (last dose today 08/14/2020)- IV dexamethasone 6 mg daily- Spirivia 1 puff daily- Albuterol 1 puff bid- IV azithromycin 500 mg daily- Vit C 500 mg PO bid- Vit D level was checked and is wnl- 5L NC oxygen2. Acute respiratory failure with hypoxiaA&P- Management as above3. DiabetesA&P- Levemir 45 units sq daily- Levemir 20 units sq qhs- Novolog low dose sliding scale4. Diabetic foot ulcersA&P- IV antibiotics as above- Wound care nurse recommendations are appreciated (dressing as per the woundservice)5. AfibA&P- Eliquis 5 mg PO bid- Amiodarone 200 mg PO bid6. HTN (hypertension)A&P- Lisinopril 40 mg PO daily- Amlodipine 10 mg PO daily7. MRSA (methicillin resistant staph aureus) culture positiveA&P- Sputum cx positive for MRSA- IV vancomycin 1250 mg d85Vohkwtgbob NotesDVT prophylaxis: Eliquis as aboveResuscitation status Full codeDATE SIGNED: 08/14/20 Electronically SignedTIME SIGNED: 1902 KAMLA LANIER MD Name Value Range Interpretation Code Description Data [facility](s) Supporting Document(s) ID Date Data Source [id number] 08/14/2020 07:52:00 AM EST [facility] Name Value Range Interpretation Code Description Data [facility](s) Supporting Document(s) FGLU 133 mg/dL 70-110 [facility] ID Date Data Source [id number] 08/14/2020 06:48:00 AM EST [facility] Name Value Range Interpretation Code Description Data [facility](s) Supporting Document(s) WBC 13.08 x10E3/uL 4.0-10.5 [facility] RBC 5.32 x10E6/uL 4.70-6.00 N [facility] Hemoglobin 12.5 g/dL 14.0-18.0 L [facility] Hematocrit 41.4 % 42.0-52.0 L [facility] MCV 77.8 fL 81.0-99.0 L [facility] MCH 23.5 pg 27.0-31.0 L [facility] MCHC 30.2 g/dL 32.7-35.6 L [facility] RDW 18.5 % 11.5-14.0 [facility] Platelet count 494 x10E3/uL 150-450 [facility] MPV 9.5 fl 6.9-9.5 N [facility] Neutrophils 75.3 % 34-64 [facility] Lymphocytes 11.2 % 25-45 [facility] Monocytes 11.5 % 1.7-10.6 [facility] Eosinophils 0 % 0.4-7.0 [facility] Basophils 0.2 % 0.1-2.0 N [facility] Imm. Gran. 1.8 % 0.1-2.0 N [facility] Abs. Neutro. 9.86 x10E3/uL 1.2-7.6 [facility] Abs. Lymph. 1.46 x10E3/uL 1.0-3.5 [facility] Abs. Stokes. 1.51 x10E3/uL 0.1-1.0 [facility] Abs. Eosin. 0.00 x10E3/uL 0.1-0.7 [facility] Abs. Baso. 0.02 x10E3/uL 0.0-0.1 [facility] Abs. Imm. Gran. 0.23 x10E3/uL 0.0-0.1 [facility] SLIDE REVIEW PERFORMED.NO ABNORMAL CELLS NOTED. ANRBC% 0 % 0 [facility] ID Date Data Source [id number] 08/14/2020 07:18:00 AM EST [facility] Name Value Range Interpretation Code Description Data [facility](s) Supporting Document(s) C-REACTIVE PROT 2.48 mg/dL 0.0-0.49 [facility] ID Date Data Source [id number] 08/14/2020 07:18:00 AM EST [facility] Name Value Range Interpretation Code Description Data [facility](s) Supporting Document(s) MAGNESIUM 1.8 mg/dL 1.6-2.6 [facility] ID Date Data Source [id number] 08/14/2020 07:18:00 AM EST [facility] Name Value Range Interpretation Code Description Data [facility](s) Supporting Document(s) DENILSON 3.7 mg/dL 2.5-4.5 [facility] ID Date Data Source [id number] 08/14/2020 07:18:00 AM EST [facility] Name Value Range Interpretation Code Description Data [facility](s) Supporting Document(s) GLU 137 mg/dL 70-110 [facility] Patients taking Sulfasalazine may have f alsely depressedGlucose levels. Patients taking Sulfapyridine may havefalsely elevated Glucose levels. Patients should be drawnfor Glucose before the initial administration of eitherdrug. BUN 14 mg/dL 7-23 [facility] CRE 0.656 mg/dL 0.500-1.300 [facility] GFR > 60 mL/min [facility] CHLORIDE 101 mmol/L 99-110 [facility] NA 141 mmol/L 136-147 [facility] POTASSIUM 4.5 mmol/L 3.5-5.1 [facility] TCO2 32 mmol/L 20-33 [facility] ANION GAP 12.5 10.0-20.0 [facility] CA 8.5 mg/dL 8.3-10.7 [facility] ALKALINE PHOS 67 U/L 45-117 [facility] TP 6.5 g/dL 6.0-7.8 [facility] ALB 2.5 g/dL 3.5-5.0 [facility] ESRD Dialysis patient Albumin reference range: 2.9-4.4 g/dL GL 4.0 g/dL 2.3-3.5 [facility] A/G 0.6 1.0-2.5 [facility] T. BILIRUBIN 0.4 mg/dL 0.1-1.1 [facility] The Dimension [place] Total Bilirubin is n ot recommended forpatients undergoing treatment with eltrombopag (Promacta)due to the potential for falsely elevated results. ALTI 34 U/L 6-54 [facility] Patients taking Sulfasalazine and/or Sul fapyridine may havefalsely depressed ALT levels. Patients should be drawn forALT before the initial administration of either drug. AST 17 U/L 8-40 [facility] Patients taking Sulfasalazine and/or Sul fapyridine may havefalsely depressed AST levels. Patients should be drawn forAST before the initial administration of either drug. ID Date Data Source [id number] 08/14/2020 09:21:00 AM EST [facility] Name Value Range Interpretation Code Description Data [facility](s) Supporting Document(s) FGLU 281 mg/dL 70-110 [facility] ID Date Data Source [id number] 08/13/2020 06:45:00 PM EST [facility] Name Value Range Interpretation Code Description Data [facility](s) Supporting Document(s) FGLU 260 mg/dL 70-110 [facility] ID Date Data Source [id number] 08/13/2020 12:37:00 PM EST [facility] Name Value Range Interpretation Code Description Data Sanjuana rce(s) Supporting Document(s) FGLU 246 mg/dL 70-110 [facility] ID Date Data Source [id number] 08/13/2020 08:09:00 AM EST [facility] [address] [id number] NOTEPATIENT NAME: DIANA OLIVERA PHYSICIAN: KAMLA LANIER, MDAUTHOR: Huy Lanier MD. DATE: 08/11/20 MR#: [id number] NOTE DATE: 08/13/20 RM#: [id number] TIME: 814 : 55SubjectiveCC/Hx Present IllnessShortness of breathEvents Since Last EntryPt seen and examined at the bedside. Pt continues to improve. We will attemptto remove the hi flow oxygen today and transition the pt over to a nasalcannula. CRP continue to downtrend. He shall remain in the ICU for continuingCOVID 19 care.UPDATE:Sputum cx positive for MRSA. IV ceftriaxone stopped and IV vancomycin wasstarted today. Pt is now off of hi flow and is on 4 L via NC.ObjectiveVital SignsVital Signs-24 HRS08/12900 0901 1000 1001 1101Temp 98.5Pulse 80 85 84Resp 20 19 18B/P 146/82 128/62 151/74B/P MeanPulse Ox 94 96 87O2 Delivery VapothermO2 Flow Rate 35L 40%LuW03608/12200 1201 1301 1401 1600Temp 98.9Pulse 82 83 84 81Resp 17 17 19B/P 140/70 131/69 144/69 145/61B/P MeanPulse Ox 94 94 92 95O2 DeliveryO2 Flow YcnwVqP147/27 08/12 08/12 08/12 07/18 41527 1700 1800 1809 1922Temp 97.8 98.9Pulse 94 85Resp 24 20B/P 143/72 148/51B/P MeanPulse Ox 91 93O2 Delivery VapothermO2 Flow Rate 40%KsW08108/12 2200Temp 98.4Pulse 79 85 77 79Resp 19B/P 158/73 158/78 165/73 157/76B/P MeanPulse Ox 93 95 95O2 DeliveryO2 Flow YmhxAqF14308/12 0000 0001 0101 0200Temp 98.2 97.2 98.0Pulse 76 78RespB/P 151/71 150/76B/P MeanPulse Ox 95 94O2 DeliveryO2 Flow EzwoIdH23808/13201 0302 0400 0401 0509Temp 97.8 97.8Pulse 76 74 80RespB/P 143/73 141/75 159/76B/P MeanPulse Ox 93 94 94O2 DeliveryO2 Flow YemgIyV167/473347RxskPgskb 78Resp 18B/P 140/68B/P MeanPulse Ox 94O2 DeliveryO2 Flow VveoTdW1Dchfed/OutputIntake/Output Summary 24 hours08/12 1 900 08/13 0700Intake Total 2850 610Output Total 1900 1200Balance 950 -590Intake, IV 1050 250Intake, Oral 1800 360Number 1BowelMovementsOutput, Urine 1900 1200Patient 80 kgWeightCurrent MedicationsPotassium Phos/Sodium Phos (KPHOS) 500 MG TIDWM POBaclofen (Lioresal) 10 MG TID POGabapentin (Neurontin) 300 MG TID POApixaban (Eliquis) 5 MG BID PORemdesivir (VEKLURY) 100 MG DAILY@2100 IVSodium Chloride (NSS 0.9% 250ML) 250 MLAlbuterol Sulfate (Ventolin) 1 PUFFBID INHAmiodarone HCl (Cordarone) 200 MG BID POAscorbic Acid (Vitamin C) 500 MG BID POAzithromycin (Zithromax) 500 MG Q24H IVCeftriaxone Sodium (Rocephin) 1 GM Q24H IVDexamethasone (Decadron) 6 MG DAILY IVDuloxetine HCl (Cymbalta) 60 MG DAILY POInsulin Detemir (Levemir) 20 UNIT BID SUBCUTMagnesium Oxide (Magox) 400 MG DAILY POMultivitamins (Multivitamin) 1 TAB DAILY POPantoprazole Sodium (Protonix) 40 MG DAILY POSodium Chloride (Saline Flush Syr(5ML)) 5 ML Q12H IVTiotropium Bacliff (Spiriva) 1 puffDAILY INHInsulin Aspart (Humalog Insulin) Low dose sliding scaleAC MEAL SUBCUTOxycodone HCl (Oxyir) 5 MG Q6HPRN PRN POSodium Chloride (Saline Flush Syr(5ML)) 5 ML QIDPRN PRN IVGlucose (Insta-Glucose) 15 GM DAILY NEEDED PRN POExamGeneral Appearance no acute distress, afebrile, alert, awakeHead atraumatic, normocephalicNeck suppleCardiovascular normal heart sounds, irregularly irr egularRespiratory symmetric expansion, on oxygen, Coarse breath sounds bilaterallyAbdomen soft, non-tenderGenitourinary (male) no flank painUrinary no flank painExtremities no edema, Right diabetic foot leg ulcers skin break down onbilateral lower legsNeurological alert, oriented x 3Psych/Mental Status mood neutralResultsLaboratory DataRecent Labs-24 hours08/12841957 9465 2014 0504ChemistrySodium (136 - 147 mmol/L) 139Potassium (3.5 - 5.1 mmol/L) 4.0Chloride (99 - 110 mmol/L) 99Serum Bicarbonate (20 - 33 mmol/L) 33Anion Gap (10.0 - 20.0) 11.0BUN (7 - 23 mg/dL) 14Creatinine (0.500 - 1.300 mg/dL) 0.556Estimated GFR/1.73 m2 (mL/min) > 60Glucose (70 - 110 mg/dL) 119 HPOC Glucose (70 - 110 mg/dL) 237 H 220 H 324 HCalcium (8.3 - 10.7 mg/dL) 8.4Phosphorus (2.5 - 4.5 mg/dL) 2.4 LMagnesium (1.6 - 2.6 mg/dL) 1.8Total Bilirubin (0.1 - 1.1 mg/dL) 0.4AST (8 - 40 U/L) 23ALT (6 - 54 U/L) 39Alkaline Phosphatase (45 - 117 U/L) 71C-Reactive Protein (0.0 - 0.49 mg/dL) 4.79 HTotal Protein (6.0 - 7.8 g/dL) 6.2Albumin (3.5 - 5.0 g/dL) 2.2 LGlobulin (2.3 - 3.5 g/dL) 4.0 HAlbumin/Globulin Ratio (1.0 - 2.5) 0.6 LHematologyWBC (4.0 - 10.5 x10E3/uL) 10.48RBC (4.70 - 6.00 x10E6/uL) 4.87Hgb (14.0 - 18.0 g/dL) 11.7 LHct (42.0 - 52.0 %) 37.4 LMCV (81.0 - 99.0 fL) 76.8 LMCH (27.0 - 31.0 pg) 24.0 LMCHC (32.7 - 35.6 g/dL) 31.3 LRDW (11.5 - 14.0 %) 18.1 HPlt Count (150 - 450 x10E3/uL) 413MPV (6.9 - 9.5 fl) 9.1Immature Gran % (Auto) (0.1 - 2.0 %) 1.2Neut % (Auto) (34 - 64 %) 75.1 HLymph % (Auto) (25 - 45 %) 11.5 LMono % (Auto) (1.7 - 10.6 %) 12.1 HEos % (Auto) (0.4 - 7.0 %) 0 LBaso % (Auto) (0.1 - 2.0 %) 0.1Abs Immat Gran (auto) (0.0 - 0.1 x10E3/uL) 0.13 HAbsolute Neuts (auto) (1.2 - 7.6 x10E3/uL) 7.87 HAbsolute Lymphs (auto) (1.0 - 3.5 x10E3/uL) 1.20Absolute Monos (auto) (0.1 - 1.0 x10E3/uL) 1.27 HAbsolute Eos (auto) (0.1 - 0.7 x10E3/uL) 0.00 LAbsolute Basos (auto) (0.0 - 0.1 x10E3/uL) 0.01Nucleated RBC % (auto) (0 %) 0Results Reviewed labs reviewedAssessment/PlanProblem List1. Pneumonia due to COVID-19 virusA&P- IV remdesivir 100 mg daily- IV dexamethasone 6 mg daily- Spirivia 1 puff daily- Albuterol 1 puff bid- IV azithromycin 500 mg daily- Vit C 500 mg PO bid- Vit D level was checked and is wnl- Pt now off of hi flow and the pt is now on 4L NC2. Acute respiratory failure with hypoxiaA&P- Management as above3. DiabetesA&P- Levemir 32 units sq daily- Levemir 20 units sq qhs- Novolog low dose sliding scale4. Diabetic foot ulcersA&P- IV antibiotics as above- Wound care nurse recommendations are appreciated (dressing as per the woundservice)5. AfibA&P- Eliquis 5 mg PO bid- Amiodarone 200 mg PO bid- HR is wnl6. HTN (hypertension)A&P- Lisinopril 20 mg PO daily7. MRSA (methicillin resistant staph aureus) culture positiveA&P- Sputum cx positive for MRSA- IV vancomycin 1500 mg t43Sdcnscglpa NotesDVT prophylaxis: Eliquis as aboveResuscitation status Full codeDATE SIGNED: 08/13/20 Electronically SignedTIME SIGNED: 1902 KAMLA LANIER MD Name Value Range Interpretation Code Description Data Sanjuana rce(s) Supporting Document(s) ID Date Data Source [id number] 08/13/2020 06:00:00 AM EST [facility] Name Value Range Interpretation Code Description Data Sanjuana rce(s) Supporting Document(s) C-REACTIVE PROT 4.79 mg/dL [facility].0-0.49 [facility] Source [id number] 08/13/2020 06:00:00 AM EST [facility] Name Value Range Interpretation Code Description Data Sanjuana rce(s) Supporting Document(s) MAGNESIUM 1.8 mg/dL 1.6-2.6 [facility] ID Date Data Source [id number] 08/13/2020 06:00:00 AM EST [place] Name Value Range Interpretation Code Description Data Sanjuana rce(s) Supporting Document(s) DENILSON 2.4 mg/dL 2.5-4.5 [facility] ID Date Data Source [id number] 08/13/2020 06:00:00 AM EST [place] [facility] Name Value Range Interpretation Code Description Data Sanjuana rce(s) Supporting Document(s) GLU 119 mg/dL 70-110 H [facility] Patients taking Sulfasalazine may have f alsely depressedGlucose levels. Patients taking Sulfapyridine may havefalsely elevated Glucose levels. Patients should be drawnfor Glucose before the initial administration of eitherdrug. BUN 14 mg/dL 7-23 [facility] CRE 0.556 mg/dL 0.500-1.300 [facility] GFR > 60 mL/min [facility] CHLORIDE 99 mmol/L 99-110 [facility] NA 139 mmol/L 136-147 [facility] POTASSIUM 4.0 mmol/L 3.5-5.1 [facility] TCO2 33 mmol/L 20-33 [facility] ANION GAP 11.0 10.0-20.0 [facility] CA 8.4 mg/dL 8.3-10.7 [facility] ALKALINE PHOS 71 U/L 45-117 [facility] TP 6.2 g/dL 6.0-7.8 [facility] ALB 2.2 g/dL 3.5-5.0 [facility] ESRD Dialysis patient Albumin reference range: 2.9-4.4 g/dL GL 4.0 g/dL 2.3-3.5 [facility] A/G 0.6 1.0-2.5 [facility] T. BILIRUBIN 0.4 mg/dL 0.1-1.1 [facility] The Dimension [place] Total Bilirubin is n ot recommended forpatients undergoing treatment with eltrombopag (Promacta)due to the potential for falsely elevated results. ALTI 39 U/L 6-54 [facility] Patients taking Sulfasalazine and/or Sul fapyridine may havefalsely depressed ALT levels. Patients should be drawn forALT before the initial administration of either drug. AST 23 U/L 8-40 [facility] Patients taking Sulfasalazine and/or Sul fapyridine may havefalsely depressed AST levels. Patients should be drawn forAST before the initial administration of either drug. ID Date Data Source [id number] 08/13/2020 05:31:00 AM [facility] Name Value Range Interpretation Code Description Data Sanjuana rce(s) Supporting Document(s) WBC 10.48 x10E3/uL 4.0-10.5 [facility] l RBC 4.87 x10E6/uL 4.70-6.00 [facility] Hemoglobin 11.7 g/dL 14.0-18.0 [facility] Hematocrit 37.4 % 42.0-52.0 [facility] MCV 76.8 fL 81.0-99.0 [facility] MCH 24.0 pg 27.0-31.0 [facility] MCHC 31.3 g/dL 32.7-35.6 [facility] RDW 18.1 % 11.5-14.0 [facility] Platelet count 413 x10E3/uL 150-450 [facility] ital MPV 9.1 fl 6.9-9.5 [facility] Neutrophils 75.1 % 34-64 H [facility] Lymphocytes 11.5 % 25-45 [facility] Monocytes 12.1 % 1.7-10.6 [facility] Eosinophils 0 % 0.4-7.0 [facility] Basophils 0.1 % 0.1-2.0 [facility] Imm. Gran. 1.2 % 0.1-2.0 [facility] Abs. Neutro. 7.87 x10E3/uL 1.2-7.6 [facility] Abs. Lymph. 1.20 x10E3/uL 1.0-3.5 [facility] Abs. Stokes. 1.27 x10E3/uL 0.1-1.0 [facility] Abs. Eosin. 0.00 x10E3/uL 0.1-0.7 [facility] Abs. Baso. 0.01 x10E3/uL 0.0-0.1 [facility] Abs. Imm. Gran. 0.13 x10E3/uL 0.0-0.1 [facility] ANRBC% 0 % 0 [facility] ID Date Data Source [id number] 08/13/2020 01:04:00 AM EST [facility] Name Value Range Interpretation Code Description Data Sanjuana rce(s) Supporting Document(s) FGLU 324 mg/dL 70-110 H [facility] ID Date Data Source [id number] 08/12/2020 04:31:00 PM EST [facility] Name Value Range Interpretation Code Description Data Sanjuana rce(s) Supporting Document(s) FGLU 220 mg/dL 70-110 [facility] ID Date Data Source [id number] 08/12/2020 02:47:00 PM EST [facility] Name Value Range Interpretation Code Description Data Sanjuana rce(s) Supporting Document(s) FGLU 237 mg/dL 70-110 [facility] ID Date Data Source [id number] 08/12/2020 08:27:00 AM EST [facility] [address] [id number] NOTEPATIENT NAME: DIANA OLIVERA PHYSICIAN: TASNEEM WALKER, MDAUTHOR: Huy Lanier MD. DATE: 08/11/20 MR#: [id number] NOTE DATE: 08/12/20 RM#: [id number] TIME: 0838 : 55SubjectiveCC/Hx Present IllnessShortness of breathEvents Since Last EntryPt seen and examined at the bedside. Pt looks clinically improved today. CRP isdowntrending 25-->12. Phosphorus and magnesium are being replaced via IV. Pt toremain in the ICU for continuing COVID treatment.ObjectiveVital SignsVital Signs-24 HRS08/11 1000 1000 1211 1400Temp 97.6 98.2 97.6Pulse 74 75 71 73Resp 15 14 15B/P 115/58 130/95 116/57 125/55B/P MeanPulse Ox 99 95 96O2 Delivery VAPOTHERMO2 Flow UwvfIrY17808/11600 1826 1999 1999 2012Temp 97.2 97.4 98.4Pulse 76 73 73 73Resp 22 13 14B/P 138/62 138/62 135/64 135/64B/P MeanPulse Ox 91 96 95O2 DeliveryO2 Flow MdtjDoI19208/11055 2100 2200 2202 2300Temp 9 7.8 98.2 98.0 97.8Pulse 78 78Resp 10 18 16B/P 132/64 138/64 130/62B/P MeanPulse Ox 96 90 97O2 Delivery Vapotherm Vapotherm Vapotherm VapothermO2 Flow Rate 60% 60 60 07TsY71608/11356 0000 0100 0200 0300Temp 97.8Pulse 72 73 72 73Resp 14 15B/P 139/61 142/60 136/64 144/64B/P MeanPulse Ox 93 96 97 96O2 DeliveryO2 Flow NegfZhT48808/12 0400 0500 0553 0742Temp 97.4 97.8Pulse 72 75 84Resp 16 16B/P 138/93 142/92 143/60B/P MeanPulse Ox 92 97O2 DeliveryO2 Flow XbriZtM6Mmxuav/OutputIntake/Output Summary 24 hours08/11 1900 08/12 0700Intake Total 1160 610Output Total 1300 1000Balance -140 -390Intake, IV 400 250Intake, Oral 760 360Output, Urine 1300 1000Patient 83 kgWeightCurrent MedicationsMagnesium Sulfate (Magnesium Sulf 1 G/100 Ml-D5w) 1 GM Q1H IVApixaban (Eliquis) 5 MG BID PORemdesivir (VEKLURY) 100 MG DAILY@2100 IVSodium Chloride (NSS 0.9% 250ML) 250 MLAlbuterol Sulfate (Ventolin) 1 PUFFBID INHAmiodarone HCl (Cordarone) 200 MG BID POAscorbic Acid (Vitamin C) 500 MG BID POAzithromycin (Zithromax) 500 MG Q24H IVCeftriaxone Sodium (Rocephin) 1 GM Q24H IVDexamethasone (Decadron) 6 MG DAILY IVDuloxetine HCl (Cymbalta) 60 MG DAILY POInsulin Detemir (Levemir) 20 UNIT BID SUBCUTMagnesium Oxide (Magox) 400 MG DAILY POMultivitamins (Multivitamin) 1 TAB DAILY POPantoprazole Sodium (Protonix) 40 MG DAILY POSodium Chloride (Saline Flush Syr(5ML)) 5 ML Q12H IVTiotropium Bacliff (Spiriva) 1 puffDAILY INHInsulin Aspart (Humalog Insulin) Low dose sliding scaleAC MEAL SUBCUTOxycodone HCl (Oxyir) 5 MG Q6HPRN PRN POSodium Chloride (Saline Flush Syr(5ML)) 5 ML QIDPRN PRN IVGlucose (Inst a-Glucose) 15 GM DAILY NEEDED PRN POExamGeneral Appearance no acute distress, afebrile, alert, awakeHead atraumatic, normocephalicNeck suppleCardiovascular normal heart sounds, irregularly irregularRespiratory symmetric expansion, on oxygen, Coarse breath sounds bilaterallyAbdomen soft, non-tenderGenitourinary (male) no flank painUrinary no flank painExtremities no edema, Right diabetic foot leg ulcers skin break down onbilateral lower legsNeurological alert, oriented x 3ResultsLaboratory DataRecent Labs-24 hours08/[id number] 8601 1015 1130 1134Blood GasABG pH (7.360 - 7.440) 7.337 LABG pCO2 (35 - 50 mmHg) 64.0 HABG pO2 (80 - 100 mmHg) 63.4 LABG O2 Saturation (95 - 100 %) 91.5 LABG Base Excess (-3 TO +3 mmol/L) 6.0Oxyhemoglobin (94.0 - 97.0 %) 91.0 LCarboxyhemoglobin (%) 0.3Methemoglobin (0.0 - 1.5 %) 0.2Total Hemoglobin (12 - 18 g/dL) 11.6 LFiO2 40L/80%ChemistrySerum Bicarbonate (20 - 33 mmol/L) 33.5 HPOC Glucose (70 - 110 mg/dL) 302 H 327 HTroponin I (0.000 - 0.079 ng/mL) 0.019C-Reactive Protein (0.0 - 0.49 25.00 Hmg/dL)08/11 1342 1655 2026ChemistryPOC Glucose (70 - 110 mg/dL) 342 H 325 H 262 H 246 H01/051031LvrqqgohhNlgsce (136 - 147 mmol/L) 144Potassium (3.5 - 5.1 mmol/L) 3.7Chloride (99 - 110 mmol/L) 103Serum Bicarbonate (20 - 33 mmol/L) 37 HAnion Gap (10.0 - 20.0) 7.7 LBUN (7 - 23 mg/dL) 19Creatinine (0.500 - 1.300 mg/dL) 0.556Estimated GFR/1.73 m2 (mL/min) > 60Glucose (70 - 110 mg/dL) 140 HCalcium (8.3 - 10.7 mg/dL) 8.5Phosphorus (2.5 - 4.5 mg/dL) 1.8 PLMagnesium (1.6 - 2.6 mg/dL) 1.6Total Bilirubin (0.1 - 1.1 mg/dL) 0.3AST (8 - 40 U/L) 30ALT (6 - 54 U/L) 44Alkaline Phosphatase (45 - 117 U/L) 66C-Reactive Protein (0.0 - 0.49 mg/dL) 12.80 HTotal Protein (6.0 - 7.8 g/dL) 6.0Albumin (3.5 - 5.0 g/dL) 2.0 LGlobulin (2.3 - 3.5 g/dL) 4.0 HAlbumin/Globulin Ratio (1.0 - 2.5) 0.5 LHematologyWBC (4.0 - 10.5 x10E3/uL) 8.99RBC (4.70 - 6.00 x10E6/uL) 4.40 LHgb (14.0 - 18.0 g/dL) 10.5 LHct (42.0 - 52.0 %) 35.0 LMCV (81.0 - 99.0 fL) 79.5 LMCH (27.0 - 31.0 pg) 23.9 LMCHC (32.7 - 35.6 g/dL) 30.0 LRDW (11.5 - 14.0 %) 17.6 HPlt Count (150 - 450 x10E3/uL) 331MPV (6.9 - 9.5 fl) 9.1Immature Gran % (Auto) (0.1 - 2.0 %) 0.7Neut % (Auto) (34 - 64 %) 79.9 HLymph % (Auto) (25 - 45 %) 9.7 LMono % (Auto) (1.7 - 10.6 %) 9.6Eos % (Auto) (0.4 - 7.0 %) 0 LBaso % (Auto) (0.1 - 2.0 %) 0.1Abs Immat Gran (auto) (0.0 - 0.1 x10E3/uL) 0.06Absolute Neuts (auto) (1.2 - 7.6 x10E3/uL) 7.19Absolute Lymphs (auto) (1.0 - 3.5 x10E3/uL) 0.87 LAbsolute Monos (auto) (0.1 - 1.0 x10E3/uL) 0.86Absolute Eos (auto) (0.1 - 0.7 x10E3/uL) 0.00 LAbsolute Basos (auto) (0.0 - 0.1 x10E3/uL) 0.01Nucleated RBC % (auto) (0 %) 0MicrobiologyMicrobiology Last 24 hours08/11 1300 SPUT: Sputum Culture, Quantitative - RECD08/11 1300 SPUT: Gram Stain - RECDResults Reviewed labs reviewedAssessment/PlanProblem List1. Pneumonia due to COVID-19 virusA&P- IV remdesivir 100 mg daily- IV dexamethasone 6 mg daily- Spirivia 1 puff daily- Albuterol 1 puff bid- IV ceftriaxone 1 g daily- IV azithromycin 500 mg daily- Vit C 500 mg PO bid- Vit D level was checked and is wnl- Hi flow oxygen2. Acute respiratory failure with hypoxiaA&P- Management as above3. DiabetesA&P- Levemir 20 units sq bid- Novolog low dose sliding scale4. Diabetic foot ulcersA&P- IV antibiotics as above- Wound care nurse recommendations are appreciated (dressing as per the woundservice)5. AfibA&P- Eliquis 5 mg PO bid- Amiodarone 200 mg PO bid- HR is wnlAdditional NotesDVT prophylaxis: Eliquis as aboveResuscitation status Full codeDATE SIGNED: 08/12/20 Electronically SignedTIME SIGNED: 1856 KAMLA LANIER MD Name Value Range Interpretation Code Description Data Sanjuana rce(s) Supporting Document(s) ID Date Data Source [id number] 08/12/2020 06:50:00 AM EST [facility] Name Value Range Interpretation Code Description Data Sanjuana rce(s) Supporting Document(s) C-REACTIVE PROT 12.80 mg/dL 0.0-0.49 [facility] ital ID Date Data Source [id number] 08/12/2020 06:50:00 AM EST [facility] Name Value Range Interpretation Code Description Data Sanjuana rce(s) Supporting Document(s) MAGNESIUM 1.6 mg/dL 1.6-2.6 N [facility] ID Date Data Source [id number] 08/12/2020 06:50:00 AM EST [facility] Name Value Range Interpretation Code Description Data Sanjuana rce(s) Supporting Document(s) DENILSON 1.8 mg/dL 2.5-4.5 [facility] ID Date Data Source [id number] 08/12/2020 06:50:00 AM EST [facility] Name Value Range Interpretation Code Description Data Sanjuana rce(s) Supporting Document(s) GLU 140 mg/dL 70-110 H [facility] Patients taking Sulfasalazine may have f alsely depressedGlucose levels. Patients taking Sulfapyridine may havefalsely elevated Glucose levels. Patients should be drawnfor Glucose before the initial administration of eitherdrug. BUN 19 mg/dL 7-23 [facility] CRE 0.556 mg/dL 0.500-1.300 [facility] GFR > 60 mL/min [facility] CHLORIDE 103 mmol/L 99-110 [facility] NA 144 mmol/L 136-147 [facility] POTASSIUM 3.7 mmol/L 3.5-5.1 [facility] TCO2 37 mmol/L 20-33 [facility] ANION GAP 7.7 10.0-20.0 [facility] CA 8.5 mg/dL 8.3-10.7 [facility] ALKALINE PHOS 66 U/L 45-117 [facility] TP 6.0 g/dL 6.0-7.8 [facility] ALB 2.0 g/dL 3.5-5.0 [facility] ESRD Dialysis patient Albumin reference range: 2.9-4.4 g/dL GL 4.0 g/dL 2.3-3.5 [facility] A/G 0.5 1.0-2.5 [facility] T. BILIRUBIN 0.3 mg/dL 0.1-1.1 [facility] The [employer] [place] Total Bilirubin is n ot recommended forpatients undergoing treatment with eltrombopag (Promacta)due to the potential for falsely elevated results. ALTI 44 U/L 6-54 [facility] Patients taking Sulfasalazine and/or Sul fapyridine may havefalsely depressed ALT levels. Patients should be drawn forALT before the initial administration of either drug. AST 30 U/L 8-40 [facility] Patients taking Sulfasalazine and/or Sul fapyridine may havefalsely depressed AST levels. Patients should be drawn forAST before the initial administration of either drug. ID Date Data Source [id number] 08/12/2020 06:24:00 AM EST [facility] Name Value Range Interpretation Code Description Data Sanjuana rce(s) Supporting Document(s) WBC 8.99 x10E3/uL 4.0-10.5 [facility] RBC 4.40 x10E6/uL 4.70-6.00 [facility] Hemoglobin 10.5 g/dL 14.0-18.0 [facility] Hematocrit 35.0 % 42.0-52.0 [facility] MCV 79.5 fL 81.0-99.0 L [facility] MCH 23.9 pg 27.0-31.0 [facility] MCHC 30.0 g/dL 32.7-35.6 [facility] RDW 17.6 % 11.5-14.0 [facility] Platelet count 331 x10E3/uL 150-450 [facility] ital MPV 9.1 fl 6.9-9.5 [facility] Neutrophils 79.9 % 34-64 H [facility] Lymphocytes 9.7 % 25-45 [facility] Monocytes 9.6 % 1.7-10.6 [facility] Eosinophils 0 % 0.4-7.0 L [facility] Basophils 0.1 % 0.1-2.0 [facility] Imm. Gran. 0.7 % 0.1-2.0 [facility] Abs. Neutro. 7.19 x10E3/uL 1.2-7.6 [facility] Abs. Lymph. 0.87 x10E3/uL 1.0-3.5 [facility] Abs. Stokes. 0.86 x10E3/uL 0.1-1.0 [facility] Abs. Eosin. 0.00 x10E3/uL 0.1-0.7 [facility] Abs. Baso. 0.01 x10E3/uL 0.0-0.1 [facility] Abs. Imm. Gran. 0.06 x10E3/uL 0.0-0.1 N [facility]ital ANRBC% 0 % 0 [facility] ID Date Data Source [id number] 08/11/2020 09:00:[address] [facility] [address] [place] [id number] RESPIRATORY CARE REPORT ==== ---------NAME------- NUMBER SEX AGE ADMIT DISC. XRAY# F/C FREDDIEJUAN Ross [id number] 65 08/10/20 08/11/20 [id number] E/R DATE OF : 1955 M/R# [id number] #: [id number] TR-06 LOCATION: EMERGENCY DEPT EKG [id number] COMP LETE:08/11/20 06:07 ED [id number] PHYSICIAN: MIRIAM ACUNA Name Value Range Interpretation Code Description Data Sanjuana rce(s) Supporting Document(s) ID Date Data Source [id number] 08/12/2020 12:18:00 AM EST [facility] Name Value Range Interpretation Code Description Data Sanjuana rce(s) Supporting Document(s) FGLU 246 mg/dL 70-110 [facility] ID Date Data Source [id number] 08/12/2020 01:49:00 AM EST [facility] Name Value Range Interpretation Code Description Data Sanjuana rce(s) Supporting Document(s) FGLU 262 mg/dL 70-110 [facility] ID Date Data Source [id number] 08/11/2020 04:29:00 PM EST [facility] Name Value Range Interpretation Code Description Data Sanjuana rce(s) Supporting Document(s) FGLU 325 mg/dL 70-110 H [facility] ID Date Data Source [id number] 08/13/2020 11:40:00 AM EST [facility] WBCS IN SMALL NUMBERSMODERATE NUMBERS GR AM-POSITIVE COCCI IN CLUSTERSSMALL NUMBERS YEAST LIKE Name Value Range Interpretation Code Description Data Sanjuana rce(s) Supporting Document(s) ORGANISM [facility] COLONY COUNT N [facility] ID Date Data Source [id number] 08/11/2020 01:00:00 PM EST [facility] WBCS IN SMALL NUMBERSMODERATE NUMBERS GR AM-POSITIVE COCCI IN CLUSTERSSMALL NUMBERS YEAST LIKE Name Value Range Interpretation Code Description Data Sanjuana rce(s) Supporting Document(s) AUGMENTIN >4/2 Results entered -- not verified [facility] GENTAMICIN <=4 Susceptible. Indicates for m icrobiology susceptibilities only. [facility] OXACILLIN >2 Results entered -- not verified [facility] PENICILLIN 2 Results entered -- not verified [facility] VANCOMYCIN 1 Susceptible. Indicates for microbiol ogy susceptibilities only. [facility] ERYTHROMYCIN >4 Results entered -- not verified [facility] CLINDAMYCIN >4 Results entered -- not verified [facility] CEFTRIAXONE >32 Results entered -- not verified [facility] TETRACYCLINE >8 Results entered -- not verified [facility] TRIMETH/SULFAME >2/38 Results entered -- not verified [facility] CIPROFLOXACIN >2 Results entered -- not verified [facility] LEVOFLOX >4 Results entered -- not verified [facility] RIFAMPIN <=1 Susceptible. Indicates for microbiol ogy susceptibilities only. [facility] S= SUSCEPTIBLEI= INTERMEDIATER= RESISTANTESBL= EXTENDED SPECTRUM BETA LACTAMASEBLANK= DATA NOT AVAILABLE, OR DRUG NOT ADVISABLE OR TESTEDMIC= mcg/ml (mg/L) For Blood and CSF Isolates, a beta lactamase test isrecommended for Enterococcus species. Interpretations based on CLSI M100 S-19 breakpoints. ID Date Data Source [id number] 08/11/2020 01:04:00 PM EST [facility] Name Value Range Interpretation Code Description Data Sanjuana rce(s) Supporting Document(s) FGLU 342 mg/dL 70-110 [facility] ID Date Data Source [id number] 08/11/2020 03:15:00 PM EST [facility] Name Value Range Interpretation Code Description Data Sanjuana rce(s) Supporting Document(s) FGLU 327 mg/dL 70-110 H [facility] ID Date Data Source [id number] 08/11/2020 12:47:00 PM EST [facility] Name Value Range Interpretation Code Description Data Sanjuana rce(s) Supporting Document(s) TROPI 0.019 ng/mL 0.000-0.079 [facility] ID Date Data Source [id number] 08/11/2020 10:18:00 AM EST [facility] [address] [place] [address] PHONE: [phone] FAX: [phone] Name .................. : JAROD Ross Acct Number.................. : [id number] ROOM. ................. : [address] Number ................... : [id number] Stay type ............. : E/R Discharge Date......... ... : Admit Date ......... : 08/10/20 Admit Phys .................... : MIRIAM ACUNA Date of ....... : 1955 Family Phys ................... : ADY Phone .................. : [phone] Age ................................ : 65 Film# .................. .:[id number] Sex ................................. : M Unsigned transcriptions are preliminary reports and do not represent a medical or legal document CHEST PORTABLE [id number] COMPLETE:08/10/20 19:33 [facility] 2979 Reason(s): Congestion PORTABLE CHEST X-RAY: INDICATION: Congestion. FINDINGS: There is severe bilateral infiltrates in the lungs. The cardiac silhouette is normal in size and contour. No acute osseous abnormality. IMPRESSION: Severe bilateral infiltrates. Electronically Reviewed and Signed By Patric Toscano M.D. , 08/11/20 10:18, [facility] Transcribe Initials: DZ , Transcribe Date: 08/11/20 00:06, Dictation Date: Copy for: EMERGENCY DEPT via modem Copy for: 710 MED REC DISCHARGED Page 1 of 1 Name Value Range Interpretation Code Description Data Sanjuana rce(s) Supporting Document(s) ID Date Data Source [id number] 08/11/2020 10:26:00 AM EST [facility] Does the pt. have a limb restriction? NR estricted limb verified YO2 % or Liter Flow: 40L/80%Does the Pt have an A-Line: NAfter Ambulation: N Name Value Range Interpretation Code Description Data Sanjuana rce(s) Supporting Document(s) PO2 63.4 mmHg 80-100 [facility] PCO2 64.0 mmHg 35-50 [facility] PH 7.337 7.360-7.440 [facility] HCO3(ABG) 33.5 mmol/L 20-33 [facility] %SATO2 91.5 % 95-100 [facility] BASE EXCESS 6.0 mmol/L -3 TO +3 [facility] DEVICE/FIO2 40L/80% [facility] tHb 11.6 g/dL 12-18 [facility] FO2Hb 91.0 % 94.0-97.0 [facility] FMETHb 0.2 % 0.0-1.5 [facility] CO 0.3 % [facility] CARBOXYHEMOGLOBIN INTERPRET ATION % TOTAL HEMOGLOBIN NONSMOKER: <2% AVERAGE SMOKER: 4-5% 1-2 PACKS/DAY HEAVY SMOKER 8-12% >2 PACKS/DAY POTENTIALLY TOXIC: >15% ID Date Data Source [id number] 08/11/2020 10:32:00 AM EST [facility] Name Value Range Interpretation Code Description Data Sanjuana rce(s) Supporting Document(s) C-REACTIVE PROT 25.00 mg/dL 0.0-0.49 H [facility] ital ID Date Data Source [id number] 08/11/2020 02:25:00 PM EST [facility] Name Value Range Interpretation Code Description Data Sanjuana rce(s) Supporting Document(s) FGLU 302 mg/dL 70-110 [facility] ID Date Data Source [id number] 08/17/2020 10:23:00 AM EST [facility] Name Value Range Interpretation Code Description Data Sanjuana rce(s) Supporting Document(s) [facility] ID Date Data Source [id number] 08/17/2020 10:23:00 AM EST [facility] Name Value Range Interpretation Code Description Data Sanjuana rce(s) Supporting Document(s) [facility] ID Date Data Source [id number] 08/11/2020 09:13:00 AM EST [facility] Name Value Range Interpretation Code Description Data Sanjuana rce(s) Supporting Document(s) VITAMIN D 25 60 ng/mL 30-100 [facility] ID Date Data Source [id number] 08/11/2020 07:12:00 AM EST [facility] Name Value Range Interpretation Code Description Data Sanjuana rce(s) Supporting Document(s) MAGNESIUM 2.1 mg/dL 1.6-2.6 [facility] ID Date Data Source [id number] 08/11/2020 06:57:00 AM EST [facility] Name Value Range Interpretation Code Description Data Sanjuana rce(s) Supporting Document(s) WBC 6.20 x10E3/uL 4.0-10.5 [facility] RBC 4.18 x10E6/uL 4.70-6.00 [facility] Hemoglobin 10.2 g/dL 14.0-18.0 [facility] Hematocrit 34.5 % 42.0-52.0 [facility] MCV 82.5 fL 81.0-99.0 [facility] MCH 24.4 pg 27.0-31.0 [facility] MCHC 29.6 g/dL 32.7-35.6 [facility] RDW 17.6 % 11.5-14.0 [facility] Platelet count 257 x10E3/uL 150-450 N [facility] ital MPV 9.8 fl 6.9-9.5 [facility] Neutrophils 84.9 % 34-64 [facility] Lymphocytes 6.8 % 25-45 [facility] Monocytes 6.6 % 1.7-10.6 [facility] Eosinophils 0 % 0.4-7.0 [facility] Basophils 0.2 % 0.1-2.0 [facility] Imm. Gran. 1.5 % 0.1-2.0 [facility] Abs. Neutro. 5.27 x10E3/uL 1.2-7.6 [facility] Abs. Lymph. 0.42 x10E3/uL 1.0-3.5 [facility] Abs. Stokes. 0.41 x10E3/uL 0.1-1.0 [facility] Abs. Eosin. 0.00 x10E3/uL 0.1-0.7 [facility] Abs. Baso. 0.01 x10E3/uL 0.0-0.1 [facility] Imm. Gran. 0.09 x10E3/uL 0.0-0.1 N [facility] spital DIFFERENTIAL CONFIRMED BY SLIDE REVIEW.0 08/11/20 0656: Abs. Imm. Gran. previously reported as: 0.09 x10E3/uL ANRBC% 0 % 0 [facility] 1+ ANISOCYTOSIS1+ HYPOCHROMICRBC MORPHOL OGY EXPECTED RESULTS: NORMAL = NORMOCHROMIC, NORMOCYTIC CELLSAny findings other than Normal will be reported and areconsidered Abnormal. The significance of Abnormalfindings are to be clinically correlated by the provider. ID Date Data Source [id number] 08/11/2020 06:42:00 AM EST [facility] Name Value Range Interpretation Code Description Data Sanjuana rce(s) Supporting Document(s) C-REACTIVE PROT 25.70 mg/dL 0.0-0.49 H [facility] ital ID Date Data Source [id number] 08/11/2020 06:39:00 AM EST [facility] Name Value Range Interpretation Code Description Data Sanjuana rce(s) Supporting Document(s) GLU 275 mg/dL 70-110 [facility] Patients taking Sulfasalazine may have f alsely depressedGlucose levels. Patients taking Sulfapyridine may havefalsely elevated Glucose levels. Patients should be drawnfor Glucose before the initial administration of eitherdrug. BUN 34 mg/dL 7-23 [facility] CRE 1.050 mg/dL 0.500-1.300 [facility] GFR > 60 mL/min [facility] CHLORIDE 105 mmol/L 99-110 [facility] NA 142 mmol/L 136-147 [facility] POTASSIUM 4.6 mmol/L 3.5-5.1 [facility] TCO2 33 mmol/L 20-33 [facility] ANION GAP 8.6 10.0-20.0 [facility] CA 8.7 mg/dL 8.3-10.7 [facility] ALKALINE PHOS 70 U/L 45-117 [facility] TP 6.5 g/dL 6.0-7.8 [facility] ALB 1.8 g/dL 3.5-5.0 [facility] ESRD Dialysis patient Albumin reference range: 2.9-4.4 g/dL GL 4.7 g/dL 2.3-3.5 [facility] A/G 0.4 1.0-2.5 [facility] T. BILIRUBIN 0.3 mg/dL 0.1-1.1 [facility] The Dimension [place] Total Bilirubin is n ot recommended forpatients undergoing treatment with eltrombopag (Promacta)due to the potential for falsely elevated results. ALTI 42 U/L 6-54 [facility] Patients taking Sulfasalazine and/or Sul fapyridine may havefalsely depressed ALT levels. Patients should be drawn forALT before the initial administration of either drug. AST 26 U/L 8-40 [facility] Patients taking Sulfasalazine and/or Sul fapyridine may havefalsely depressed AST levels. Patients should be drawn forAST before the initial administration of either drug. ID Date Data Source [id number] 08/11/2020 06:39:00 AM EST [facility] Name Value Range Interpretation Code Description Data Sanjuana rce(s) Supporting Document(s) TROPI 0.020 ng/mL 0.000-0.079 [facility] ID Date Data Source [id number] 08/11/2020 06:32:00 AM EST [facility] Name Value Range Interpretation Code Description Data Sanjuana rce(s) Supporting Document(s) LACTIC ACID INA 1.5 mmol/L 0.4-2.0 [facility] ID Date Data Source [id number] 08/11/2020 04:52:00 AM EST [facility] [address] [address]RIJBAWF AND PHYSICALPATIENT NAME: DIANA OLIVERA MR#: [id number] PHYSICIAN: ABBIE BECERRIL MDAUTHOR: Tasneem Walker MD DATE: 08/11/20 RM#: [id number] & PHYSICAL DATE: 08/11/20 : 55EVALUATION TIME: 0548HistoryChief Complaint/Admit ReasonShortness of breathHistory of Presenting Bzlyxhd19-cwdh-ydz male with multiple medical problems listed below who presents tot ED at [facility] with complaints of dyspnea and was obtundedinitially but turned around and was alert and oriented x3. Patient was alsodiaphoretic and his blood pressures were initially 90s over 50s but with IVfluids it improved to 97/56. Fever of 101.1. Lactic acid normal. Patient is aresident of senior living apparently was noted to have O2 sats in the 70s at [facility]. Patient was placed on 50% Ventimask at [place] resp[facility]ator [facility] with O2 sats 94 to 95%. Rapid COVID 19 test was positive, andinflammatory markers i.e. ferritin, LDH, CRP were elevated also D-dimer waselevated. Chest x-ray revealed bilateral pneumonia likely from COVID- 19.Patient was given remdesivir, dexamethasone, ceftriaxone and azithromycin.Patient is on Eliquis for atrial fibrillation. Patient was recently treated [facility] from 07/07 to 07/14/2021 with acute on chronic respiratoryfailure due to suspected COVID 19 viral pneumonia, hospital course was alsocomplicated by staph hominis bacteremia 2 out of 4 bottles was treated with 14-day course of IV vancomycin per ID recommendations. [facility] because he did not have anyrespiratory therapy services last night. Patient denies any chest pain,abdominal pain, nausea, vomiting or diarrhea. Patient endorses nonproductivecough however.Past Medical/Surgical HistoryPast Medical/Surgical HistoryMedical ProblemsAcute respiratory failure with hypoxiaAfibChronic painCOPD (chronic obstructive pulmonary disease)DebilityDepressionDiabetesDiabetic foot ulcersGERD (gastroesophageal reflux disease)GlaucomaHTN (hypertension)MRSA (methicillin resistant staph aureus) culture positivePneumonia due to COVID-19 virusVitamin D deficiencyReconciled Home Med ListSee Reconciled Home Medication ListAllergiesCoded Allergies:ADHESIVE TAPE (TAPE) (08/11/20)Family history NoncontributorySocial History no tobacco use, no alcohol use, no recreational drug useReview of SystemsConstitutionalReports: Fever, Chills.SkinReports: diaphoresis.EyesDenies: redness.ENTDenies: nasal congestion, rhinorrhea.RespiratoryReports: dyspnea, non-productive cough, shortness of breath.CardiovascularReports: dyspnea on exertion. Denies: chest pain, palpitations.GastrointestinalDenies: nausea, vomiting, abdominal pain, diarrhea.GenitorurinaryDenies: dysuria, flank pain, frequency.EndocrineDenies: polydipsia.NeurologicalDenies: lightheaded.PsychDenies: anxiety.ExamVital SignsVital Signs-24 HRS01/666626Kfoa 97.8Pulse 67Resp 13B/P 107/55B/P MeanPulse Ox 99O2 DeliveryO2 Flow [id number] ExaminationGeneral Appearance no acute distress, afebrile, alert, awakeHead atraumatic, normocephalicENT dry mucosal membranesEye AssessementAssessment: EOMI, normal scleraNeck no JVD, suppleCardiovascular no murmur, no gallop, no rub, irregularly irregularRespiratory symmetric expansion, rales (diffusely)Abdomen soft, non-tender, no distention, normal bowel sounds, no guarding, noreboundUrinary no bladder distention, no flank painGenitourinary (male) no flank painExtremities no cyanosis, no edema, Right diabetic foot leg ulcers, cellulitison left legNeurological alert, oriented x 3Skin AssessmentSkin dry, warmData ReviewLaboratory DataRecent Labs-48 hours/[id number] Glucose (70 - 110 mg/dL) 507Isxhlkiiodxr15/26 0501 BLOOD: Blood Culture - ORDImagingChest x-ray report from [facility].Severe bilateral pneumonia.Assessment/PlanDiagnosis/Problem1. Acute respiratory failure with hypoxiaA&PHypoxic respiratory failure secondary to COVID-19 viral pneumonia. On 50%Ventimask patient O2 sats were 83%-Patient requiring 100% nonrebreather with O2 sats 98 to 99%-Continue with remdesivir-Continue with dexamethasone-Continue with ceftriaxone-Continue with azithromycin-Continue with albuterol and Spiriva -Blood culture sent for fevers.2. Pneumonia due to COVID-19 virusA&PChest x-ray showing bilateral pneumonia, patient recently treated for COVID-[facility]viral [facility] at [facility]. Tested positive for COVID-19 at [facility].-Treatment same as above in problem #1.3. DiabetesA&P-Patient placed on Levemir and NovoLog sliding scale-Monitor fingersticks4. Diabetic foot ulcersA&PChronic diabetic foot ulcers.-Continue to monitor, patient is on ceftriaxone.5. AfibA&PA. fib on Eliquis.-We will hold metoprolol secondary to low blood pressure at this time.Resuscitation status Full codePlan discussed with patientCase discussed with nursing staffCopies ToCopies to Family Provider: NO,ONECQM VTE HISTORYVTE HISTORYPrior VTE? NoDATE SIGNED: 08/31/20 Electronically SignedTIME SIGNED: 042 TASNEEM WALKER MD Name Value Range Interpretation Code Description Data Sanjuana rce(s) Supporting Document(s) ID Date Data Source [id number] 08/11/2020 03:15:00 AM EST [facility] Name Value Range Interpretation Code Description Data Sanjuana rce(s) Supporting Document(s) FGLU 104 mg/dL 70-110 [facility] ID Date Data Source [id number] 08/10/2020 06:53:00 PM EST [facility] 1 OrderSheet [facility] Emergency Department [address] [place] [address] Phone #: ext- [phone] 08/10/2020 18:53 Patient: DIANA OLIVERA Sex: M : 1955 Age: 65yWEIGHT:90.4 kg (M) HEIGHT:74 inches (E) BMI:25.6ALLERGIES: TAPECHIEF COMPLAINT: dyspnea, COPD, CHFDIAGNOSIS: Pneumonia, Respiratory failure, Severe acute respiratory syndrome coronavirus, HypoxemiaLAB ORDERSOrder Description Priority Entered Acknowledged InitialedCBC w Diff STAT 19:08/10/2020 19:11 Rigo Flores RN, M.D.;CMP STAT 19:08/10/2020 19:11 Rigo Flores RN, M.D.;Lipase STAT 19:08/10/2020 19:11 Rigo Flores RN, M.D.;PT/PTT STAT 19:08/10/2020 19:11 Rigo Folres RN, M.D.;Troponin-T STAT 19:08/10/2020 19:11 Rigo Flores RN, M.D.;BNP STAT 19:08/10/2020 19:12 Rigo Flores RN, M.D.;Lactic Acid STAT 19:08/10/2020 19:12 Rigo Flores RN, M.D.;Blood Culture STAT 19:07 08/10/2020 19:12 [id number] X2 (Rigo Sewell RN19:07 08/10/2020) Geraldine;Blood Culture STAT 19:07 08/10/2020 19:19 Telluq33o X2 (Rigo Sewell RN19:17 08/10/2020) Geraldine;Venous Blood Gas STAT 19:08 08/10/2020 19:12 Rigo Flores RN, M.D.;D-Dimer STAT 19:11 08/10/2020 19:23 Bonnie, 2 OrderSheet [facility] Emergency Department [address] [place] [address] Phone #: ext- [phone] 08/10/2020 18:53 Patient: DIANA OLIVERA Sex: M : 1955 Age: 65y Rigo Ge R.N., M.D.;CRP STAT 19:11 08/10/2020 19:23 Miriam Nicole Riccardo Amber R.N. M.D.;Ferritin STAT 19:11 08/10/2020 19:23 Miriam Nicole Riccardo Amber R.N. M.D.;LDH STAT 19:11 08/10/2020 19:23 Miriam Nicole Riccardo Amber R.N. M.D.;Magnesium STAT 19:20 08/10/2020 19:23 Miriam Nicole Riccardo Amber R. N. M.D.;COVID-19 CAH STAT 22:00 08/10/2020 22:09 Adilene(Symptomatic as Rigo Ge R.N.Defined by CDC) Geraldine;(08/10/2020) (NotFirst Test)(Hospitalized) (Not)(Resident inCongregate CareSetting) (NotEmployed inHealthcare Setting)DIAGNOSTIC STUDY ORDERSOrder Description Priority Entered Acknowledged InitialedChest Portable 1 STAT 19:07 08/10/2020 19:12 Seth (Oxygen? Rigo Ge RN(Yes)) Geraldine; Reason for Study: Congestion, COPD, Cough, Pneumonia, Respiratory FailureMEDICATION/IV/DRIP/FLUID ORDERSOrder Description Priority Entered Acknowledged InitialedDuoNeb 3 mL X2 19:08 08/10/2020 19:44 PeterDoses (Filtered): 6 Rigo Ge RNmL (3 mL X2 M.D.;Doses)Magnesium Sulfate 19:08 08/10/2020 20:43 Peter2 g IVPB X1 dose: 2 Rigo Ge RNgm (HIGH ALERT M.D.; 3 OrderSheet [facility] Emergency Department [address] [place] [address] Phone #: ext- [phone] 08/10/2020 18:53 Patient: DIANA OLIVERA Sex: M : 1955 Age: 65yMEDICATION, X1)Dexamethasone 19:08 08/10/2020 19:30 PeterIVP 10 mg Rigo Ge RN, M.D.;Remdesivir 200 mg 19:09 08/10/2020 20:39 PeterIV 200 mg (ADD to Rigo Ge RN250 mL NS, Infuse M.D.;at 250 mL/hr)cefTRIAXone 19:09 08/10/2020 20:08 Peter(1gm/50ml) IVPB Rigo Ge [id number] mg with M.D.;Dextrose 50 mlspike bag (D5W)Zithromax IVPB 500 19:09 08/10/2020 19:39 Petermg X1 Dose: 500 Rigo Ge RNmg with Dextrose M.D.;Intravenous 250 mL(NOW x1)Ofirmev IV 1000 mg 19:18 08/10/2020 19:36 Julio(NOW x1, Infuse Rigo Ge RNover 15 minutes) Geraldine;NS IV : Bolus 250 19:23 08/10/2020 19:28 Som, then 125 mL/hr Rigo Ge RN, M.D.;DuoNeb 3 mL X2 21:21 08/10/2020 21:27 JulioDoses (Filtered): 6 Rigo Ge (3 mL X2 M.DElizabeth;Doses)NS IV 500 mL 21:30 08/10/2020 21:53 JulioBolus: : Bolus 500 Rigo Ge (X1) MElizabethDElizabeth;GENERAL ORDERSOrder Description Priority Entered Acknowledged InitialedBlood Pressure 19:07 08/10/2020 19:11 Rigo Colvin RN, M.D.;Manager Pharmacy 19:07 08/10/2020 19:11 Julio(continuous) Rigo Ge RN, M.D.;EKG 19:08/10/2020 19:11 Rigo Flores RN, M.D.; 4 OrderSheet [facility] Emergency Department [address] [place] [address] Phone #: ext- [phone] 08/10/2020 18:53 Patient: DIANA OLIVERA Sex: M : 1955 Age: 65yNPO 19:07 08/10/2020 19:11 Rigo Flores RN, M.D.;Obtain Old EKG 19:08/10/2020 19:11 Rigo Flores RN, M.D.;Obtain Old Records 19:08/10/2020 19:11 Rigo Flores RN, M.D.;Oxygen (40 %) 19:07 08/10/2020 20:13 Julio(per Simple Mask) Rigo Ge RN(Titrate to O2 Sat M.D.;>92%)Oxygen titrate to 19:07 08/10/2020 19:19 Julio92% Rigo Ge RN, M.D.;Pulse oximeter 19:07 08/10/2020 19:11 Julio(Continuous) Rigo Ge RN, M.D.;Saline Lock 19:07 08/10/2020 19:11 Rigo Flores RN, M.D.;Vitals 19:07 0 08/10/2020 19:11 Rigo Flores RN, M.D.;Consult - 20:52 08/10/2020 21:25 JulioHospitalist Rigo Ge RN, M.D.;Respiratory 21:21 08/10/2020 21:25 JulioTherapy Request Rigo Ge RN(Vapotherm, high M.D.;flow O2)Transfer: 22:04 08/10/2020 22:09 Miriam Head Riccardo Laura R.N. M.D.;[Electronically signed by Cornelius Head R.N. (01:08/11/2020)][Electronically signed by Rigo Ge M.D. (01:32 08/11/2020)][Electronically locked by Cornelius Head R.N. (:08/11/2020)] Name Value Range Interpretation Code Description Data Sanjuana rce(s) Supporting Document(s) ID Date Data Source [id number] 08/10/2020 06:53:00 PM EST [facility] 1 Medication Reconciliation Report [facility] Emergency Department [address] [place] [address] Phone #: ext- [phone] 08/10/2020 18:53 Patient: DIANA OLIVERA J Sex: M : 1955 Age: 65yWeight: 90.4 kgHeight/Length: 74 in.BMI: 25.6ALLERGIES: TAPEThe patient's Home Medications are listed below:THE FOLLOWING MEDICATIONS NEED TO BE RECONCILED: Amiodarone HCL Oral 200 mg, 2x a day amLODIPine Besylate Oral (10 mg) 1 tablet, daily Aspirin Oral (81 mg) 1 tablet, 2x a day Baclofen Oral (10 mg) 1 tablet, 3x a day Bisacodyl Rectal (10 mg), prn Colace Oral 100 mg, 3x a day, prn DULoxetine HCl Oral (60 mg) 1 capsule, daily Eliquis Oral (2.5 mg) 1 tablet, 2x a day Gabapentin Oral (600 mg) 1 tablet, 3x a day HumaLOG Subcutaneous Levemir FlexTouch Subcutaneous Lidocaine patch Metoprolol Succinate ER Oral (50 mg) 1 tablet, daily Milk of Magnesia Oral Multivitamins Oral 2 Medication Reconciliation Report [facility] Emergency Department [address] [place] [address] Phone #: ext- [phone] 08/10/2020 18:53 Patient: DIANA OLIVERA Sex: M : 1955 Age: 65y oxyCODONE HCl Oral 5 mg, q6h, prn Pantoprazole Sodium Oral 40 mg, daily ProAir HFA Inhalation Senna Oral (8.6 mg) 1 capsule, 2x a day Serevent Diskus Inhalation Zinc Oral (220 (50 Zn) mg) 1 capsule, dailyThe source(s) of the original Home Medication information:patient's senior living recordThe following Medications were given to the patient in the Emergency Department:NS [IV] IV Fluids bolus 250 mL over 15 minute(s), then 125 mL/hr, administered: 19:28 08/10/2020examethasone [IVP] IVP 10 mg, administered: 19:30 08/10/2020OFIRMEV Drip IV bolus 0, then 1000 MG, administered: 19:36 08/10/2020Zithromax [IVPB] IVPB bolus 0, then 500 mg 250 mL/hr, administered: 19:39 1Duoneb [Neb Tx] Neb TX 2 unit dose, administered: 19:44 1CEFTRIAXONE (1GM/50ML) [IVPB] IVPB bolus 0, then 1 gm 100 mL/hr, administered: 20:08 08/10/2020EMDESIVIR Drip IV bolus 0, then 200 MG, administered: 20:39 08/10/2020Magnesium Sulfate [IVPB] IVPB bolus 0, then 2 gm 50 mL/hr, administered: 20:43 1Duoneb [Neb Tx] Neb TX 2 unit dose, administered: 21:27 08/10/2020NS [IV] IV Fluids bolus 500 mL over 20 minute(s), then 100 mL/hr, administered: 21:53 08/10/2020The following Medications were prescribed to the patient:None. Name Value Range Interpretation Code Description Data Sanjuana rce(s) Supporting Document(s) ID Date Data Source [id number] 08/10/2020 06:53:00 PM [facility] 1 Medication Administration Record [facility] Emergency Department [address] [place] [address] Phone #: ext- [phone] 08/10/2020 18:53 Patient: DIANA OLIVERA Sex: M : 1955 Age: 65yWeight: 90.4 kgHeight/Length: 74 inBMI: 25.6ALLERGIES: TAPE Date/Time Medication Administered Medication OrderedGiven DUONEB [NEB TX] DuoNeb 3 mL X2 Doses (Filtered):19:44 08/10/2020 Dose: 2 unit dose Nebulizer Neb TX 6 mL (3 mL X2 Doses)Julio Patel RN----Stop22:22 08/10/2020Cornelius Head R.N.Start MAGNESIUM SULFATE [IVPB] Magnesium Sulfate 2 g IVPB X120:43 08/10/2020 Dose: 2 gm IVPB dose: 2 gm (HIGH ALERTJulio Patel RN Rate: 50 mL/hr over 1 hour(s) MEDICATION, X1)---- Dispensed: 50 mL bagStop Site: #2 left fhkctyh32:49 08/10/2020yulia Patel RNGiven DEXAMETHASONE [IVP] Dexamethasone IVP 10 mg19:30 08/10/2020 Dose: 10 mg IVPPyulia Patel RN Site: #2 left forearmStart REMDESIVIR * Remdesivir 200 mg IV 200 mg20:39 08/10/2020 Dose: 200 MG * Drip IV (ADD to 250 mL NS, Infuse at 250PeTsang RN mL/hr)----Stop21:52 08/10/2020Kristin Guaman CEFTRIAXONE (1GM/50ML) [IVPB] cefTRIAXone (1gm/50ml) IVPB20:08 08/10/2020 Dose: 1 gm IVPB 1000 mg with Dextrose 50 ml spikeJulio Patel RN Rate: 100 mL/hr over 30 minute(s) bag (D5W)---- Dispensed: 50 mL bagStop Site: #2 left :40 1PKristin Guaman ZITHROMAX [IVPB] (AZITHROMYCIN) Zithromax IVPB 500 mg X1 Dose:19:39 08/10/2020 Dose: 500 mg IVPB 500 mg with Dextrose IntravenousJulio Patel RN Rate: 250 mL/hr over 1 hour(s) 250 mL (NOW x1)---- Dispensed: 250 mL bagStop Site: #1 right AC20:38 08/10/2020Kristin Guaman OFIRMEV * Ofirmev IV 1000 mg (NOW x1,19:36 08/10/2020 Dose: 1000 MG * Drip IV Infuse over 15 minutes)Julio Patel RN----Stop20:04 08/10/2020 2 Medication Administration Record [facility] Emergency Department [address] [place] [address] Phone #: ext- [phone] 08/10/2020 18:53 Patient: DIANA OLIVERA Sex: M : 1955 Age: 65yPeter UMA Pateltart NS [IV] NS IV : Bolus 250 mL, then 88636:[id number] 08/10/2020 Dose: IV Fluids mL/hrPyulia Patel RN Rate: 125 mL/hr over 6 hour(s)---- Bolus: 250 mL over 15 minute(s)Stop Dispensed: 1000 mL bag00:22 08/11/2020 Site: #2 left Cornelius Bentley R.N.Given DUONEB [NEB TX] DuoNeb 3 mL X2 Doses (Filtered):21:27 08/10/2020 Dose: 2 unit dose Nebulizer Neb TX 6 mL (3 mL X2 Doses)Julio Patel RN----Stop22:03 08/10/2020Cornelius Head R.N.Start NS [IV] NS IV 500 mL Bolus: : Bolus 72036:53 08/10/2020 Dose: IV Fluids mL (X1)Julio Patel RN Rate: 100 mL/hr over 5 hour(s)---- Bolus: 500 mL over 20 minute(s)Stop Dispensed: 1000 mL bag22:23 08/10/2020 Site: #1 right ACCornelius Head R.N. Name Value Range Interpretation Code Description Data Sanjuana rce(s) Supporting Document(s) ID Date Data Source [id number] 08/10/2020 06:53:00 PM EST [facility] 1 General Instructions [facility] Emergency Department [address] [place] [address] Phone #: ext- [phone] 08/10/2020 18:53 Patient: DIANA OLIVERA Sex: M : 1955 Age: 65yAcute respiratory failure with hypoxemia.Viral and lobar pneumonia with hypoxemia and respiratory failure. (Covid-19).Coronavirus COVID-19 with pneumonia (Severe).Hypoxia.(Electronically signed by Rigo Ge M.D. 08/11/2020 01:32) Name Value Range Interpretation Code Description Data Sanjuana rce(s) Supporting Document(s) ID Date Data Source [id number] 08/10/2020 06:53:00 PM EST [facility] 1 Clinical Report - Nurses [facility] Emergency Department [address] [place] [address] Phone #: ext- [phone] 08/10/2020 18:53 Patient: DIANA OLIVERA Sex: M : 1955 Age: 65yTRIAGEArrived by EMS. Historian: EMS. Unaccompanied.Triage time: late entry - 18:52 08/10/2020. Acuity: LEVEL 2.Chief Complaint: SHORTNESS OF BREATH and (COVID POSITIVE).Alert.This started today. Onset. (unknown). ( Per EMS pt is known COVID positive, unsure when test datewas, unknown when this started, however they stated his O2 sat dropped into the 70's, unknown if pt wearsO2 normally, NH placed him on NRB and EMS states per them he was 96% on NRB when they arrived.Per them pt has been more lethargic. Pt not talking in triage.). ( Fentanyl patch removed by duringtriage).SEPSIS SCREEN: SIRS SCREEN POSITIVE: temperature greater than 38.3 degrees C (100.9 degreesF), heart rate greater than 90 and respiratory rate greater than 20. --19:00 08/10/20 Maryellen Longoria R.N.18:55 08/10/20. BP: 127/71. MAP: 89. HR: 94. RR: 24. O2 saturation: 95% on non-rebreather at 15liters/minute. Temp: 101.1 F (oral). Pain level now unable to obtain due to patient condition. --19: Maryellen Longoria R.N.Weight: 90.4 kg measured. Height/Length: 74 inches Estimated. BMI: 25.6. --18:59 08/10/20 Maryellen Longoria R.N.MedicationsAspirin Oral (Tablet Delayed Release 81 mg) 1 tablet, 2x a day. DULoxetine HCl Oral (Capsule Delayed Release Particles 60 mg) 1 capsule, daily. --19:00 08/10/20Sonido Nicole R.N. oxyCODONE HCl Oral 5 mg, q6h as needed. --19:00 08/10/20 Sonido Nicole R.N. Eliquis Oral (Tablet 2.5 mg) 1 tablet, 2x a day. --19:01 08/10/20 Sonido Nicole R.N. Amiodarone HCL Oral 200 mg, 2x a day. --19:01 08/10/20 Sonido Nicole R.N. amLODIPine Besylate Oral (Tablet 10 mg) 1 tablet, daily. --19:02 08/10/20 Sonido Nicole R.N. Metoprolol Succinate ER Oral (Tablet Extended Release 24 Hour 50 mg) 1 tablet, daily. --19:03 08/10/20Sonido Nicole R.N. HumaLOG Subcutaneous. --19:03 08/10/20 Sonido Nicole R.N. Levemir FlexTouch Subcutaneous. --19:03 08/10/20 Sonido Nicole R.N. Baclofen Oral (Tablet 10 mg) 1 tablet, 3x a day. --19:05 08/10/20 Sonido Nicole R.N. Bisacodyl Rectal (Suppository 10 mg), as needed. --19:05 08/10/20 Sonido Nicole R.N. Colace Oral 100 mg, 3x a day as needed. --19:06 08/10/20 Sonido Nicole R.N. Gabapentin Oral (Tablet 600 mg) 1 tablet, 3x a day. --19:07 08/10/20 Sonido Nicole R.N. Lidocaine patch. --19:08 08/10/20 Sonido Nicole R.N. 2 Clinical Report - Nurses [facility] Emergency Department [address] [place] [address] Phone #: ext- [phone] 08/10/2020 18:53 Patient: DIANA OLIVERA Sex: M : 1955 Age: 65yMilk of Magnesia Oral. --19:08 08/10/20 Sonido Nicole R.N.Multivitamins Oral. --19:08 08/10/20 Sonido Nicole R.N.Pantoprazole Sodium Oral 40 mg, daily. --19:09 08/10/20 Sonido Nicole R.N.ProAir HFA Inhalation. --19:09 08/10/20 Sonido Nicole R.N.Senna Oral (Capsule 8.6 mg) 1 capsule, 2x a day. --19:09 08/10/20 Sonido Nicole R.N.Serevent Diskus Inhalation. --19:10 08/10/20 Sonido Nicole R.N.Zinc Oral (Capsule 220 (50 Zn) mg) 1 capsule, daily. --19:10 08/10/20 Sonido Nicole R.N.AllergiesTAPE. --19:00 08/10/20 Sonido Nicole R.N.PROBLEMS:Heart Disease.Hyp ercholesterolemia.Emphysema.Glaucoma.Hyperthyroidism.Hypomagnesemia.Hyperglycemi a.Hypertension.Dyspnea.Congestive Heart Failure.COPD - Chronic Obstructive Pulmonary Disease.Atrial Fibrillation.Diabetes Mellitus.Degenerative Joint Disease.Seizure.Sepsis (disorder).Respiratory Failure.Rotator cuff syndrome.Ulcers on toes and legs.UTI - Urinary Tract Infection.Sleep Apnea.Tremor.Renal Insufficiency.Narcotic Dependence.Neurological Disease.Low testosterone.Muscle Strain, Upper Extremity.Pneumonia.Osteomyelitis.Osteoarthritis of Finger Joint. --19:11 08/10/20 Sonido Nicole R.N.Medication/allergy information source: the patient's senior living record. --19:00 08/10/20 Hany Longoria Clinical Report - Nurses [facility] Emergency Department [address] [place] [address] Phone #: ext- [phone] 08/10/2020 18:53 Patient: DIANA OLIVERA Sex: M : 1955 Age: 65y Khushboo Bojorquez History PAST MEDICAL HX: Immunizations: status is unknown. SOCIAL HX: Smoker - current status unknown. No alcohol use or drug use. Unable to offer HIV testing due to the patient's condition and hepatitis C testing due to the patient's condition. ( COVID POSITIVE). The patient has not traveled outside the [place] Infectious disease exposure: No infectious disease exposure. The patient was exposed to Coronavirus. Symptoms. Precautions taken. Staff notified. Patient taken to isolation room. Patient is not a known carrier of tuberculosis, hepatitis, HIV, MRSA or VRE. Patient is not a known carrier of CRE. SELF HARM ASSESSMENT: Self harm assessment was performed. Unable to assess the patient in regard to the question(s) "Do you have thoughts of harming or killing yourself?" and "Do you have a plan for harming or killing yourself?". ABUSE ASSESSMENT: Abuse assessment. No suspicion of abuse. No report of abuse. NUTRITIONAL RISK ASSESSMENT: The nutritional risk assessment revealed no deficiencies. LEARNING NEEDS ASSESSMENT: The learning needs assessment revealed no barriers. FALL RISK ASSESSMENT: Fall risk assessment completed. Risk factors identified include patient age greater than 65 years. Fall interventions initiated. Patient placed on stretcher. Side rails up x2. Bed in low position. Patient visible from nurses' station and identified as a fall risk. Electronic bed monitor in use. Call light in reach of patient. Instructed not to get up without assistance. Instructions given to patient including fall prevention information. Verbalizes understanding. FUNCTIONAL ASSESSMENT: Functional assessment performed: mobility impairment present- this mobility impairment is an ongoing problem. SKIN INTEGRITY ASSESSMENT: Skin integrity risk assessment completed. No skin integrity risk identified. --19:08/10/20 Maryellen Longoria R.N. Interventions Identification band on patient. --19:08/10/20 Maryellen Longoria R.N. Advanced care plan (FULL CODE). --19:08/10/20 Maryellen Longoria R.N.PHYSICAL ASSESSMENTTo room via stretcher.GENERAL / NEURO / PSYCH: Alert. Oriented X 4. Appears in distress.HEENT: Mucous membranes are pink.RESPIRATORY: Mild respiratory distress. The patient can speak a few words at a time. Accessorymuscle use. Bilateral rhonchi present anteriorly. 4 Clinical Report - Nurses [facility] Emergency Department [address] [place] [address] Phone #: ext- [phone] 08/10/2020 18: 53 Patient: DIANA OLIVERA Sex: M : 1955 Age: 65y CVS: Normal sinus rhythm noted. Capillary refill less than 2 seconds. GI / : Abdomen soft and nontender. Bowel sounds within normal limits. SKIN: Skin is warm and dry. Normal skin turgor. ( bilateral lower legs are a redened color). --19:10 08/10/20 Julio Patel RN.NURSING PROGRESS NOTES19:00 08/10/2020 Site #1 started via IV in the right antecubital space with an 18g angiocath using a topicalanesthetic, with aseptic technique and good blood return; one attempt. Blood drawn: rainbow set andcultures x1. Labeled in the presence of the patient and sent to the lab. --19:00 08/10/20 Maryellen Longoria R.N. Oxygen administered by nonrebreather mask at [address] monitor, NIBP monitor and pulse oximeter placed on patient; nurse monitoring- Lead II; monitor alarms on; monitor strip added to paper chart. Patient gowned. Reassurance given. Three patient identifiers checked. Call light placed in reach. Side rails up x 2. Bed placed in lowest position. Brakes of bed on. Patient ready for evaluation- ED physician notified. --19:00 08/10/20 Maryellen Longoria R.N. EKG time: (late entry - 19:02 08/10/2020). EKG was ordered, performed by a nurse and shown to the ED physician. --19:04 08/10/20 Maryellen Longoria R.N. Patient ID band checked for patient name and birthdate: patient confirmed. Blood samples drawn by nurse per protocol ; labeled in presence of the patient and sent to lab: blood culture (2nd set). --19:05 08/10/20 Maryellen Longoria R.N. 19:10 08/10/20. BP: 130/73. MAP: 92. HR: 92. RR: 16. O2 saturation: 100% on non-rebreather at 15 liters/minute. Pain level now: 0/10. --19:11 08/10/20 Julio Patel RN 19:19 08/10/2020 Site #2 started via IV in the left forearm with an 18g angiocath, with aseptic technique and good blood return; one attempt. Saline lock flushed with 10 mL saline. --19:19 08/10/20 Julio Patel RN 19:28 08/10/2020 Started bag #1 1000 mL IV Fluids NS; bolus of 250 mL over 15 minute(s) then at 125 mL/hr over 6 hour(s) via site #2 via IV pump. Allergies verified and confirmed 5 rights. IV patency established. IV site checked: no pain, redness, or swelling. IV flushed thoroughly pre- and post- medication administration. Information reviewed with patient including reason for taking this medication. Verbalizes understanding. --19:28 08/10/20 Julio Patel RN 19:30 08/10/2020 Dexamethasone IVP 10 mg given over 2 minute(s) via site #2. Allergies verified and confirmed 5 rights. IV patency established. IV site checked: no pain, redness, or swelling. IV flushed thoroughly pre- and post-medication administration. IVP given by RN. Information reviewed with patient including reason for taking this medication. Verbalizes understanding. --19:30 08/10/20 Julio Patel RN 19:36 08/10/2020 OFIRMEV * Drip IV 1000 MG INFUSED AT 400 ML/HR OVER 15 MINUTES --19:36 08/10/20 Julio Patel RN 5 Clinical Report - Nurses [facility] Emergency Department [address] [place] [address] Phone #: ext- [phone] 08/10/2020 18:53 Patient: DIANA OLIVERA Sex: M : 1955 Age: 65y19:39 08/10/2020 Started 500 mg of Zithromax (Azithromycin) IVPB in bag #1 250 mL; at 250 mL/hr over 1hour(s) via site #1. via IV pump. Allergies verified and confirmed 5 rights. IV patency established. IV sitechecked: no pain, redness, or swelling. IV flushed thoroughly pre- and post-medication administration.Information reviewed with patient including reason for taking this medication. Verbalizes understanding.--19:39 08/10/20 Julio Patel RN19:44 08/10/2020 Duoneb Neb TX Nebulizer 2 unit dose given. Given by the nurse. Allergies verified andconfirmed 5 rights. Information reviewed with patient including reason for taking this medication. Verbalizesunderstanding. (USING A FILTERED NEBULIZER). --19:44 08/10/20 Julio Patel RN19:47 08/10/20. BP: 131/74. MAP: 93. HR: 91. RR: 20. O2 saturation: 94%. Pain level now: 0/10.--19:47 08/10/20 Julio Patel RN16 fr wu catheter placed in ED. Reason for indwelling catheter: requires prolonged immobilization andpatient's decreased level of consciousness. During procedure hand hygiene observed and sterileequipment and aseptic technique used. Return of 200 mL sonido-colored clear urine; attached to bedsidedrainage bag positioned below the bladder and secured with stabilization device. He tolerated procedurewell. --19:58 08/10/20 Julio Patel RN20:04 08/10/2020 OFIRMEV Drip IV Discontinued: infused. Total amount infused: 100 mL. IV patencyestablished. IV site checked: no pain, redness, or swelling. IV flushed thoroughly. --20:10 08/10/20 ERICA Velasquez20:08 08/10/2020 Started 1 gm of CEFTRIAXONE (1GM/50ML) IVPB in bag #1 50 mL; at 100 mL/hr over30 minute(s) via site #2. via IV pump. Allergies verified and confirmed 5 rights. IV patency established. IVsite checked: no pain, redness, or swelling. IV flushed thoroughly pre- and post-medication administration.Information reviewed with patient including reason for taking this medication. Verbalizes understanding.--20:08 08/10/20 Julio Patel RN20:13 08/10/20. BP: 106/57. MAP: 73. HR: 89. RR: 18. O2 saturation: 93% on Venti mask. Pain levelnow: 0/10. Additional comments: VENTI MASK AT 40% WITH 15 LPM, WILL INCREASE TO 50%.--20:16 08/10/20 Julio Patel RNOxygen administered by venturi mask at 15 liters 50%. --20:21 08/10/20 Julio Patel RN20:27 08/10/20. BP: 101/60. MAP: 73. HR: 85. RR: 18. O2 saturation: 95% on Venti mask at 15liters/minute. Pain level now: 0/10. --20:27 08/10/20 Julio Patel RN20:28 08/10/20. Temp: 99.5 F (oral). --20:28 08/10/20 GRANT Fernandez:38 08/10/2020 Zithromax IVPB via IV site #1 Discontinued: infused. Total amount infused: 250 mL. IVpatency established. IV site checked: no pain, redness, or swelling. IV flushed thoroughly. --20:38 08/10/20Julio Patel RN 6 Clinical Report - Nurses [facility] Emergency Department [address] [place] [address] Phone #: ext- [phone] 08/10/2020 18:53 Patient: DIANA OLIVERA Sex: M : 1955 Age: 65y20:39 08/10/2020 REMDESIVIR * Drip IV 200 MG IN 250 D5W INFUSED AT 250 ML/HR --20:39 08/10/20Julio Patel RN20:40 08/10/2020 CEFTRIAXONE (1GM/50ML) IVPB via IV site #2 Discontinued: infused. Total amountinfused: 50 mL. IV patency established. IV site checked: no pain, redness, or swelling. IV flushedthoroughly. --20:40 08/10/20 Julio Patel RN20:43 08/10/2020 Started 2 gm of Magnesium Sulfate IVPB in bag #1 50 mL; at 50 mL/hr over 1 hour(s) viasite #2. via IV pump. Allergies verified and confirmed 5 rights. IV patency established. IV site checked: nopain, redness, or swelling. IV flushed thoroughly pre- and post-medication administration. Informationreviewed with patient including reason for taking this medication. Verbalizes understanding. --20: Julio Patel RN20:44 08/10/20. BP: 94/57. MAP: 69. HR: 80. RR: 18. O2 saturation: 95%. Pain level now: 0/10. --20: Julio Patel RN21:27 08/10/2020 Duoneb Neb TX Nebulizer 2 unit dose given. Given by the nurse. Allergies verified andconfirmed 5 rights. Information reviewed with patient including reason for taking this medication. Verbalizesunderstanding. --21:27 08/10/20 Julio Patel RN21:33 08/10/20. BP: 96/61. MAP: 72. HR: 72. RR: 16. O2 saturation: 93%. Pain level now: 0/10.Additional comments: doing a nebulizer at this time. --21:34 08/10/20 Julio Patel RN21:49 08/10/2020 Magnesium Sulfate IVPB via IV site #2 Discontinued: infused. Total amount infused: 50mL. IV patency established. IV site checked: no pain, redness, or swelling. IV flushed thoroughly. --21: Julio Patel RN21:52 08/10/2020 REMDESIVIR Drip IV Discontinued: infused. Total amount infused: 290 mL. IV patencyestablished. IV site checked: no pain, redness, or swelling. IV flushed thoroughly. --21:52 08/10/20 ERICA Velasquez21:53 08/10/2020 Started bag #1 1000 mL IV Fluids NS; bolus of 500 mL over 20 minute(s) then at 100mL/hr over 5 hour(s) via site #1 via IV pump. Allergies verified and confirmed 5 rights. IV patencyestablished. IV site checked: no pain, redness, or swelling. IV flushed thoroughly pre- and post-medicationadministration. Information reviewed with patient including reason for taking this medication. Verbalizesunderstanding. --21:53 08/10/20 Julio Patel RNPatient ID band checked for patient name and birthdate: patient confirmed. COVID-19 specimen obtainedby RN via nasopharyngeal swab. Labeled in the presence of the patient and sent to lab. --21:58 08/10/20Julio Patel RN21:54 08/10/20. BP: 97/56. MAP: 69. HR: 72. RR: 18. O2 saturation: 94% on Venti mask. Pain level now:0/10. --21:58 08/10/20 Julio Patel RN 7 Clinical Report - Nurses [facility] Emergency Department [address] [place] [address] Phone #: ext- [phone] 08/10/2020 18:53 Patient: DIANA OLIVERA Sex: M : 1955 Age: 65y 21:59 08/10/20. BP: 102/57. MAP: 72. HR: 71. --21:59 08/10/20 Julio Patel RN 23:07 08/10/20. BP: 96/52. MAP: 66. HR: 65. RR: 21. O2 saturation: 100% on non-rebreather. --23:07 08/10/20 Cornelius Head R.N. The patient is calm and resting quietly. ( Awaiting for ambulance to accept patient to transfer him.). --23:07 08/10/20 Cornelius Head R.N. 22:03 08/10/2020 Yanira Chavis TX discontinued due to improvement in patient condition. --01:23 08/11/20 Cornelius Head R.N. 22:22 08/10/2020 Yanira Chavis TX discontinued due to improvement in patient condition. --01:23 08/11/20 Cornelius Head R.N. 22:23 08/10/2020 IV Fluids NS via IV site #1 Discontinued: completed. Total amount infused: 500 mL. IV patency established. IV site checked: no pain, redness, or swelling. IV flushed thoroughly. --01:23 08/11/20 Cornelius Head R.N. 00:22 08/11/2020 IV Fluids NS via IV site #2 Discontinued: discontinued upon transfer. Total amount infused: 700 mL. IV patency established. IV site checked: no pain, redness, or swelling. IV flushed thoroughly. --01:22 08/11/20 Melaragno, Cornelius, R.N.DISPOSITION / DISCHARGE 22:32 08/10/20. BP: 102/57. MAP: 72. HR: 71. RR: 18. O2 saturation: 95%. Temp: 99.5 F. Pain level now: 0/10. --22:33 08/10/20 Julio Patel RN Transferred to [facility]. Visit overview and summary of care (CCDA) provided to EMS via paper. Transported via helicopter by geological survey field assistant with monitor, IV and O2. Report was given to a nurse via a phone call and visit overview. Report included information regarding patient's care, treatment, allergies and condition including: recent changes, current and abnormal vital signs and critical or abnormal labs. Report included treatment information regarding medications given or pending; type and amount of IV fluids and medications infusing and total volume infused. All questions were answered. Report was acknowledged and care was transferred. (Christiana MALDONADO). --22:33 08/10/20 Julio Patel RN 00:23 08/11/20. BP: 106/57. MAP: 73. HR: 65. RR: 22. O2 saturation: 98% on non-rebreather. Temp: 99.5 F. Pain level now: 0/10. --00:24 08/11/20 Cornelius Head R.N. 00:24 08/11/2020 Site #[address] upon transfer; patent, no pain and no signs of infection or infiltration. Good blood return present. Flushed with 10 mL saline; flushes easily. --01:24 08/11/20 Cornelius Head R.NElizabeth 00:25 08/11/2020 Site #[address] upon transfer; patent, no pain and no signs of infection or infiltration. Good blood return present. Flushed with 10 mL saline; flushes easily. --01:08/11/20 Cornelius Head, Sravan Clinical Report - Nurses [facility] Emergency Department [address] [place] [address] Phone #: ext- [phone] 08/10/2020 18:53 Patient: DIANA OLIVERA Sex: M : 1955 Age: 65y R.N. late entry - 00:08/11/20. Transported via stretcher by geological survey field assistant and transport team with monitor and O2. --:08/11/20 Cornelius Head R.N. Departure time: late entry - 00:08/11/2020. --:08/11/20 Cornelius Head R.N.Locked/Released at 08/11/2020 01: by Cornelius Head R.N. Name Value Range Interpretation Code Description Data Sanjuana rce(s) Supporting Document(s) ID Date Data Source [id number] 0001 08/10/2020 06:53:00 PM EST [facility] 1 Clinical Report - Physicians/Mid Levels [facility] Emergency Department [address] [place] [address] Phone #: ext- [phone] 08/10/2020 18:53 Patient: DIANA OLIVERA Sex: M : 1955 Age: 65y Time Seen: 19:06 08/10/2020; initial patient contact. Arrived- By ambulance. Historian- EMS personnel and senior living nurse and records. History limited by vague historian. Disposition decision: 20:50 08/10/2020.HISTORY OF PRESENT ILLNESS Chief Complaint: DYSPNEA and HISTORY OF CHRONIC OBSTRUCTIVE PULMONARY DISEASE and CONGESTIVE HEART FAILURE. This started today and is still present. It was gradual in onset and has been constant. The dyspnea is severe. The patient has had a mild cough productive of scant amounts of sputum. He has had scant amounts of sputum, a subjective fever, wheezing and chills. 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 Similar symptoms previously. Patient has had similar symptoms many times. Recent medical care: The patient was seen recently at this facility.REVIEW OF SYSTEMS The patient has had a nasal discharge and naus ea. No abdominal pain, diarrhea or skin rash. All other systems reviewed and are negative.PAST HISTORY See nurses notes. Problems: Heart Disease. Hypercholesterolemia. Emphysema. Glaucoma. Hyperthyroidism. Hypomagnesemia. Hyperglycemia. Hypertension. Dyspnea. Congestive Heart Failure. COPD - Chronic Obstructive Pulmonary Disease. Atrial Fibrillation. 2 Clinical Report - Physicians/Mid Levels [facility] Emergency Department [address] [place] [address] Phone #: ext- [phone] 08/10/2020 18:53 Patient: DIANA OLIVERA Sex: M : 1955 Age: 65yDiabetes Mellitus.Degenerative Joint Disease.Seizure.Sepsis (disorder).Respiratory Failure.Rotator cuff syndrome.Ulcers on toes and legs.UTI - Urinary Tract Infection.Sleep Apnea.Tremor.Renal Insufficiency.Narcotic Dependence.Neurological Disease.Low testosterone.Muscle Strain, Upper Extremity.Pneumonia.Osteomyelitis.Osteoarthritis of Finger Joint.Additional Surgeries:Amputation Lower Extremity. (Left Great toe)C6 Corpectomy and Fusion c5-c6 w/ fibular strut graft .Cardiac catherization.Melanoma removal 1998.Rotator Cuff Surgery.Stent placement 2015.Medications:Zinc Oral (Capsule 220 (50 Zn) mg) 1 capsule, daily.Serevent Diskus Inhalation.Senna Oral (Capsule 8.6 mg) 1 capsule, 2x a day.ProAir HFA Inhalation.Pantoprazole Sodium Oral 40 m g, daily.Multivitamins Oral.Milk of Magnesia Oral.Lidocaine patch.Gabapentin Oral (Tablet 600 mg) 1 tablet, 3x a day.Colace Oral 100 mg, 3x a day as needed.Bisacodyl Rectal (Suppository 10 mg), as needed.Baclofen Oral (Tablet 10 mg) 1 tablet, 3x a day.Levemir FlexTouch Subcutaneous.HumaLOG Subcutaneous.Metoprolol Succinate ER Oral (Tablet Extended Release 24 Hour 50 mg) 1 tablet, daily.amLODIPine Besylate Oral (Tablet 10 mg) 1 tablet, daily. 3 Clinical Report - Physician s/Mid Levels [facility] Emergency Department [address] [place] [address] Phone #: ext- [phone] 08/10/2020 18:53 Patient: DIANA OLIVERA Sex: M : 1955 Age: 65y Amiodarone HCL Oral 200 mg, 2x a day. Eliquis Oral (Tablet 2.5 mg) 1 tablet, 2x a day. oxyCODONE HCl Oral 5 mg, q6h as needed. Aspirin Oral (Tablet Delayed Release 81 mg) 1 tablet, 2x a day. DULoxetine HCl Oral (Capsule Delayed Release Particles 60 mg) 1 capsule, daily. Allergies: TAPE.SOCIAL HISTORY Former smoker. No alcohol use or drug use. Resides in a senior living.ADDITIONAL NOTES The nursing notes have been reviewed with agreement regarding the chief complaint, HPI, ROS, PMH and patient medications and allergies.PHYSICAL EXAM Vital Signs: 08/10/2020 19:10 BP: 130/73. MAP: 92. HR: 92. RR: 16. O2 saturation: 100% on non-rebreather at 15 liters/minute. Pain level now: 0/10. 08/10/2020 18:55 BP: 127/71. MAP: 89. HR: 94. RR: 24. O2 saturation: 95% on non-rebreather at 15 liters/minute. Temp: 101.1 F. Have been reviewed. Febrile. Oxygen saturation normal. Appearance: Alert. Anxious. Patient in mild distress. Distress appears respiratory. Eyes: Eyes normal inspection. ENT: Nose normal. Pharynx normal. Uvula midline. Neck: Normal inspection. No jugular venous distention. Neck supple. CVS: Normal heart rate and rhythm. Heart sounds normal. Pulses normal. Respiratory: Mild accessory muscle use. Mildly prolonged expirations. Mildly decreased air movement diffusely over both lungs. Painless inspiration. Mild bilateral rhonchi present in the bases. Abdomen: Soft and nontender. No organomegaly. Back: Normal inspection. Skin: Skin warm. Normal skin color. Normal skin turgor. Extremities: (pt has b/l feet cushions from recent feet surgery). Neuro: Oriented X 3. No motor deficit.LABS, X-RAYS, AND EKG EKG: No acute process. No acute ischemia. Normal sinus rhythm. Rate: 92/min. Normal ST and T waves. EKG unchanged when compared with prior EKG. (07-07-20). The study has been interpreted contemporaneously by me. The EKG appears to be a good tracing. Interpretation time: 19:14 08/10/2020. Chest X- ray: (see report; severe b/l infiltrates). Views: AP (portable). The X-rays were interpreted by the radiologist. Interpretation time: 19:46 08/10/2020. Laboratory Tests: Laboratory tests have been ordered, with results reviewed and considered in the medical decision making process. COVID-19 CAH: (ILEANA: 22:00) ( MsgRcvd 08/10/2020 22:29) Final results Test Result Flag Units (Reference) 4 Clinical Report - Physicians/Mid Levels [facility] Emergency Department [address] [place] [address] Phone #: ext- [phone] 08/10/2020 18:53 Patient: DIANA OLIVERA Sex: M : 1955 Age: 65y COVID-19 DETECTED COVID-19 REENTER DETECTED { PROCEDURAL CONTROL VALID KIT LOT # _[id number] 08/10/20.2227.AB . . . KIT EXP DATE _82-02-68 58/25/21.AB . . . NORMAL RANGE IS NOT DETECTEDNEGATIVE RESULTSSHOULD BE TREATED PRESUMPTIVE AND, IF INCONSISTENT WITHCLINICAL SIGNS AND SYMPTOMS OR NECESSARY FOR PATIENTMANAGEMENT, SHOULD BETESTED WITH DIFFERENT AUTHORIZED OR CLEARED MOLECULAR TESTS. NEGATIVE RESULTSDO NOT [id number] INFECTION AND SHOULD NOT BE USED THE SOLE BASISFOR PATIENT MANAGEMENT D ECISIONS.Magnesium: (ILEANA: 08/10/2020 19:00) ( [facility] 08/10/2020 19:50) Final results Test Result Flag Units (Reference) MAGNESIUM 1.5 L MG/DL (1.7 - 2.2)D-Dimer: (ILEANA: 08/10/2020 19:00) ( [facility] 08/10/2020 19:27) Final results Test Result Flag Units (Reference) D-DIMER QUANT 3.38 H ug/mL (0.27 - 0.50)CRP: (ILEANA: 08/10/2020 19:00) ( [facility] 08/10/2020 22:08) Final results Test Result Flag Units (Reference) CRP-HS > 300.00 H MG/L (1.00 - 3.00) CDC/AHS HS-CRP CUT-OFF: RELATIVE RISK: <1.0 mg/LLow 1.0 - 3.0 mg/L Average >3.0 mg/LHigh Optimally, the average of HS-CRP results repeated two weeks apart should be used forrisk assessment.Ferritin: (ILEANA: 08/10/2020 19:00) ( [facility] 08/10/2020 20:25) Final results Test Result Flag Units (Reference) FERRITIN 1000.0 H ng/mL (5.0 - 244)LDH: (ILEANA: 08/10/2020 19:00) ( [facility] 08/10/2020 19:50) Final results Test Result Flag Units (Reference) LDH 371 H U/L (135 - 225)Venous Blood Gas: (ILEANA: 08/10/2020 19:00) ( MtgRcvd 08/10/2020 19:23) Final results Test Result Flag Units (Reference) pH V 7.34 (7.32 - 7.43) pCO2 V 72.4 H mm/HG (38.0 - 51.0) pO2 V 24.5 L mm/HG (30.0 - 55.0) HCO3 V 38.2 H meq/L (22.0 - 29.0) TCO2 V 40.4 H meq/L (22.0 - 29.0) BASE EXCESS 10.0 H (-2.0 - 2.0) O2 SAT V 41.0 % (40.0 - 85.0)CBC w Diff: (ILEANA: 08/10/2020 19:00) ( [facility] 08/10/2020 19:18) Final results Test Result Flag Units (Reference) CBC W/AUTOMATED DIFF COMPLETE BLOOD COUNT WBC 7.5 10/uL (4.2 - 11.0) RBC 4.42 L 10/uL (4.50 - 6.30) HEMOGLOBIN 10.9 L g/dL (14.0 - 16.0) HEMATOCRIT 36.1 L % (41.0 - 51.0) MCV 81.7 fL (80.0 - 94.0) 5 Clinical Report - Physicians/Mid Levels [facility] Emergency Department [address] [place] [address] Phone #: ext- [phone] 08/10/2020 18:53 Patient: [id number] Sex: M : 1955 Age: 65y MCH 24.7 L pg (27.0 - 34.0) MCHC 30.2 L g/dL (31.0 - 36.0) RDW 17.4 H % (11.5 - 14.8) PLATELETS 275 10/uL (150 - 450) MPV 9.0 fL (7.4 - 10.4) NEUT 78.5 % (37.0 - 80.0) LYMPH 6.8 L % (25.0 - 40.0) MONO 12.3 H % (3.0 - 8.0) EOS 0.1 % (0.0 - 7.0) BASO 0.4 % (0.0 - 2.0) %IG 1.9 H % (0.0 - 0.0) %NRBC 0.0 % (0.0 - 0.0) #NEUT 5.88 10/uL (2.00 - 6.90) #LYMPH 0.51 L 10/uL (0.60 - 3.40) #MONO 0.92 H 10/uL (0.00 - 0.90) #EOS 0.01 10/uL (0.00 - 0.70) #BASO 0.03 10/uL (0.00 - 0.20) #IG 0.14 H 10/uL (0.00 - 0.10) #NRBC 0.00 10/uL (0.00 - 0.00) MANUAL DIFF NOT INDICATED RBC MORPH NOT INDICATEDCMP: (ILEANA: 08/10/2020 19:00) ( MsgRcvd 08/10/2020 19:50) Final results Test Result Flag Units (Reference) COMPREHENSIVE METABOLIC PANEL COMPREHENSIVE METABOLIC PANEL SODIUM 139 mEq/L (134 - 153) POTASSIUM 5.1 H mEq/L (3.6 - 5.0) CHLORIDE 96 L mEq/L (98 - 107) CO2 35 H MEQ/L (22 - 30) GLUCOSE 206 H MG/DL (70 - 99) BUN 30 H MG/DL (7 - 21) CREATININE 1.0 MG/DL (0.7 - 1.5) BUN/CREAT 30 H (8 - 27) TOTAL PROTEIN 6.0 L G/DL (6.3 - 8.2) ALBUMIN 3.1 L G/DL (3.9 - 5.0) G LOBULIN 2.9 GM/DL (2.4 - 3.2) A/G RATIO 1.1 (0.8 - 2.0) CALCIUM 8.6 MG/DL (8.4 - 10.2) TOTAL BILI <0.7 MG/DL (0.2 - 1.3) ALKALINE PHOS 70 U/L (38 - 126) SGOT/AST 31 U/L (5 - 40) SGPT/ALT 43 U/L (7 - 56) ANION GAP 8.0 mmol/L (8.0 - 16.0) AGE 65 yrs NON-AA GFR >60 mL/min AFR AMER GFR >60 mL/min Male GFR Interprentation 20-49 yrs >60 mL/min Zaivpl80-44 yrs >56 mL/min Normal 60-69 yrs >49 mL/min Normal 70-79yrs>42 mL/min Normal 80 and above >35 mL/min Normal Female GFRInterpretation 20-39 yrs >60 mL/min Normal 40-49 yrs >58 mL/minNormal 50- 59 yrs >51 mL/min Normal 60-69 yrs >45 mL/min Serfgy45-08 yrs >39 mL/min Normal 80 and above >32 mL/min NormalLipase: (ILEANA: 08/10/2020 19:00) ( MsgRcvd 08/10/2020 19:50) Final results Test Result Flag Units (Reference) LIPASE 8 L U/L (13 - 60) 6 Clinical Report - Physicians/Mid Levels [facility] Emergency Department [address] [place] [address] Phone #: ext- [phone] 08/10/2020 18:53 Patient: DIANA OLIVERA Sex: M : 1955 Age: 65y PT/PTT: (ILEANA: 08/10/2020 19:00) ( [facility] 08/10/2020 19:27) Final results Test Result Flag Units (Reference) PROTIME 16.8 H SECONDS (11.0 - 15.5) INR 1.30 H (0.93 - 1.23) PTT 51.0 H SECONDS (24.8 - 36.7) \\BLDo\\INR INTERPRETATION\\BLDx\\ Therapeutic range for Coumadin and related oral anticoagulants. -International Normalized Ratio (INR): 2.0 - 3.0 for Venous Thrombosis, Pulmonary Embolus, Tissue heart valves, Acute GA Atrial Fibrillation, Valvular heart disease and recurrent Systemic Embolism. -International Normalized Ratio (INR): 2.5 - 3.5 for Mechanical Prosthetic valve. Troponin-T: (ILEANA: 08/10/2020 19:00) ( [facility] 08/10/2020 19:50) Final results Test Result Flag Units (Reference) TROPONIN T <0.01 NG/ML (0.00 - 0.10) TROPONIN T0.1 ng/ml Recommended as the clinical threshold value forTroponin T. BNP: (ILEANA: 08/10/2020 19:00) ( [facility] 08/10/2020 20:25) Final results Test Result Flag Units (Reference) BNP 521 H PG/ML (0 - 125) Lactic Acid: (ILEANA: 08/10/2020 19:00) ( [facility] 08/10/2020 19:22) Final results Test Result Flag Units (Reference) LACTIC ACID 2.1 MMOL/L (0.2 - 2.2) Chest Portable 1 View: (ILEANA: 08/10/2020 19:07) ( [facility] 08/10/2020 19:33) In Progress CHEST PORTABLE Reason(s): Congestion TRANSPORTATION: P IV? O2? Oxygen?(Yes) Room: E.PROGRESS AND PROCEDURES Course of Care: 20:45 08/10/20. workup all in and reviewed, d-dimer, LDH, ferritin all high, lactic nml, VBG reviewed and compared to previous VBG, CXR shows severe b/l PNA better than 08-07-19, pt has probable Covid PNA w hypoxia, pt is on Eliquis; pt is treated aggressively in ER for this right now w fluids, duonbl, dexamethasone, MGSO4, Remdesivir, Ceftriaxone, Zithromax IV; pt has improved hemodynamically, case discussed w Doc Garcia, who agrees w admission and also not to repeat CTA since he's on Eliquis and better picture than 08-07-19 21:30 08/10/20. Doc Garcia, [employer]NA[employer] hospitalist in ER to see pt in er who was suddenly sweaty and a bit more lethargic and hypoxic; after brief sternal rub, he woke up and started talking to us with O2 sat climbing; duonbl x 2 ordered as well as RT in for high flow O2 21:35 08/10/20. Doc Garcia states that pt is too sick for this facility, no ICU, no director of rehabilitation and wellness; no RT, will attempt to transfer 7 Clinical Report - Physicians/Mid Levels [facility] Emergency Department [address] [place] [address] Phone #: ext- [phone] 08/10/2020 18:53 Patient: DIANA OLIVERA Sex: M : 1955 Age: 65y 22:02 08/10/20. Doc Garcia called Dr. Wlaker, hospitalist at [facility], who accepted pt for transfer; he wants repeat rapid Covid test; pt is doing better hemodynamically now 23:34 08/10/20. rapid Covid still positive; waiting for transport out; pt stable hemodynamically. Critical care performed (60 minutes). Time is exclusive of separately billable procedures. Time includes: direct patient care, patient reassessment, coordination of patient care, interpretation of data (laboratory data, pulse oximetry, arterial blood gases, chest xrays and prior electrocardiograms), medical consultation and documentation of patient care- see progress notes. Patient and spouse counseled in person regarding the patient's stable but serious condition, test results, diagnosis and need for admission. Patient and spouse agrees with plan of care. Disposition: Benefits, risks and alternatives to transfer explained to patient and spouse. Transferred to [facility]. Summary of care (CCDA) provided to transport team, patient and transfer facility via paper. Condition: serious.CLINICAL IMPRESSION Acute respiratory failure with hypoxemia. Viral and lobar pneumonia with hypoxemia and respiratory failure. (Covid-19). Coronavirus COVID-19 with pneumonia (Severe). Hypoxia.(Electronically signed by Rigo Ge M.D. 08/11/2020 01:32) Name Value Range Interpretation Code Description Data Sanjuana rce(s) Supporting Document(s) ID Date Data Source [id number] 08/10/2020 06:53:00 PM [facility] VisitID: [id number] Date: 20:52MED REC FAXED ALONG WITH [place] MAR @2054(Electronically signed by Hanny Moise - 08/10/2020 20:52) Name Value Range Interpretation Code Description Data Sanjuana rce(s) Supporting Document(s) ID Date Data Source [id number] 08/10/2020 10:28:00 PM [facility] DETECTEDDETECTED{ PROCEDURAL C ONTROL VALID KIT LOT # _[id number] 08/10/20.AB . . . KIT EXP DATE _29-87-02 08/10/20.AB . . . NORMAL RANGE IS NOT DETECTEDNEGATIVE RESULTS SHOULD BE TREATED PRESUMPTIVE AND, IF INCONSISTENT WITHCLINICAL SIGNS AND SYMPTOMS OR NECESSARY FOR PATIENT MANAGEMENT, SHOULD BETESTED WITH DIFFERENT AUTHORIZED OR CLEARED MOLECULAR TESTS. NEGATIVE RESULTSDO NOT PRECLUDE SARS-CoV-2 INFECTION AND SHOULD NOT BE USED THE SOLE BASISFOR PATIENT MANAGEMENT DECISIONS. Name Value Range Interpretation Code Description Data Sanjuana rce(s) Supporting Document(s) ID Date Data Source [id number] 08/17/2020 02:20:00 PM [facility] Name Value Range Interpretation Code Description Data Sanjuana rce(s) Supporting Document(s) CULTURE BLOOD [facility] _CULTURE BLOOD_ TEST PERFORM ED AT [address] [address] CLIA# [id number] SEE SCANNED REPORT{ PRELIM ID Date Data Source [id number] 08/16/2020 08:51:00 AM EST [facility] [address] Name Value Range Interpretation Code Description Data Sanjuana rce(s) Supporting Document(s) Bacteria identified in Blood by Culture [facility] NO GROWTH AFTER 5 DAYS ID Date Data Source [id number] 08/17/2020 02:20:00 PM [facility] Name Value Range Interpretation Code Description Data Sanjuana rce(s) Supporting Document(s) CULTURE BLOOD [facility] _CULTURE BLOOD_ TEST PERFORM ED AT [address] [address] CLIA# [id number] SEE SCANNED REPORT{ PRELIM ID Date Data Source [id number] 08/10/2020 10:08:00 PM [facility] Name Value Range Interpretation Code Description Data Sanjuana rce(s) Supporting Document(s) C reactive protein [Mass/volume] in Serum or Plasma by High sensitivity method >300.00 MG/L 1.00 - 3.00 H [facility]/S HS-CRP CUT-OFF: RELATIVE RISK: <1.0 mg/L Low 1.0 - 3.0 mg/L Average >3.0 mg/L High Optimally, the average of HS-CRP results repeated two weeks apart should be used for risk assessment. ID Date Data Source [id number] 08/10/2020 08:25:00 PM [facility] Name Value Range Interpretation Code Description Data Sanjuana rce(s) Supporting Document(s) Ferritin [Mass/volume] in Serum or Plasma 1000.0 ng/mL 5.0 - 244 H [facility] ID Date Data Source [id number] 08/10/2020 08:25:00 PM [facility] Name Value Range Interpretation Code Description Data Sanjuana rce(s) Supporting Document(s) BNP 521 PG/ML 0 - 125 H [facility] ID Date Data Source [id number] 08/10/2020 07:50:00 PM [facility] Name Value Range Interpretation Code Description Data Sanjuana rce(s) Supporting Document(s) Magnesium [Mass/volume] in Serum or Plasma 1.5 MG/DL 1.7 - 2.2 L [facility] ID Date Data Source [id number] 08/10/2020 07:50:00 PM [facility] Value Range Interpretation Code Description Data Sanjuana rce(s) Supporting Document(s) Lactate dehydrogenase [Enzymatic activity/volume] in Serum o r Plasma 371 U/L 135 - 225 H [facility] ID Date Data Source [id number] 08/10/2020 07:50:00 PM [facility] Name Value Range Interpretation Code Description Data Sanjuana rce(s) Supporting Document(s) Lipase [Enzymatic activity/volume] in Serum or Plasma 8 U/L 13 - 60 L [facility] ID Date Data Source [id number] 08/10/2020 07:50:00 PM [facility] Value Range Interpretation Code Description Data Sanjuana rce(s) Supporting Document(s) COMPREHENSIVE METABOLIC PANEL [facility] COMPREHENSIVE METABOLIC PANEL Sodium [Moles/volume] in Serum or Plasma 139 mEq/L 134 - 153 [facility] Potassium [Moles/volume] in Serum or Plasma 5.1 mEq/L 3.6 - 5.0 H [facility] Chloride [Moles/volume] in Serum or Plasma 96 mEq/L 98 - 107 L [facility] Carbon dioxide, total [Moles/volume] in Serum or Plasma 35 MEQ/L 22 - 30 H [facility] Glucose [Mass/volume] in Serum or Plasma 206 MG/DL 70 - 99 H [facility] BUN 30 MG/DL 7 - 21 [facility] Creatinine [Mass/volume] in Serum or Plasma 1.0 MG/DL 0.7 - 1.5 [facility] BUN/CREAT 30 8 - 27 H [facility] Protein [Mass/volume] in Serum or Plasma 6.0 G/DL 6.3 - 8.2 L [facility] Albumin [Mass/volume] in Serum or Plasma 3.1 G/DL 3.9 - 5.0 L [facility] Globulin [Mass/volume] in Serum by calculation 2.9 GM/DL 2.4 - 3.2 [facility] A/G RATIO 1.1 0.8 - 2.0 [facility] Calcium [Mass/volume] in Serum or Plasma 8.6 MG/DL 8.4 - 10.2 [facility] Bilirubin.total [Mass/volume] in Serum or Plasma <0.7 MG/DL 0.2 - 1.3 [facility] Alkaline phosphatase [Enzymatic activity/volume] in Serum or Plasma 70 U/L 38 - 126 [facility] Aspartate aminotransferase [Enzymatic activity/volume] in Serum or Plasma 31 U/L 5 - 40 [facility] Alanine aminotransferase [Enzymatic activity/volume] in Seru m or Plasma 43 U/L 7 - 56 [facility] Anion gap 3 in Serum or Plasma 8.0 mmol/L 8.0 - 16.0 [facility] AGE 65 yrs [facility] NON-AA GFR >60 mL/min [facility] ital AFR AMER GFR >60 mL/min [facility] Male GFR In terprentation 20-49 yrs >60 mL/min Normal 50-59 yrs >56 mL/min Normal 60-69 yrs >49 mL/min Normal 70-79yrs >42 mL/min Normal 80 and above >35 mL/min Normal Female GFR Interpretation 20-39 yrs >60 mL/min Normal 40-49 yrs >58 mL/min Normal 50-59 yrs >51 mL/min Normal 60-69 yrs >45 mL/min Normal 70-79 yrs >39 mL/min Normal 80 and above >32 mL/min Normal ID Date Data Source [id number] 08/10/2020 07:50:00 PM EST [facility] Name Value Range Interpretation Code Description Data Sanjuana rce(s) Supporting Document(s) TROPONIN T <0.01 NG/ML 0.00 - 0.10 [facility] ospital TROPONIN T0.1 ng/ml Recommended as the c linical threshold value forTroponin T. ID Date Data Source [id number] 08/10/2020 07:27:00 PM [facility] Name Value Range Interpretation Code Description Data [facility](s) Supporting Document(s) Fibrin D-dimer FEU [Mass/volume] in Platelet poor plasma 3.38 ug /mL 0.27 - 0.50 H [facility] ID Date Data Source [id number] 08/10/2020 07:26:00 PM [facility] Name Value Range Interpretation Code Description Data [facility](s) Supporting Document(s) Prothrombin time (PT) 16.8 SECONDS 11.0 - 15.5 H [facility] INR in Platelet poor plasma by Coagulation assay 1.30 0.93 - 1. 23 H [facility] aPTT in Blood by Coagulation assay 51.0 SECONDS 24.8 - 36.7 H [facility] \\BLDo\\INR INTERPRETATION\\BLDx\\ Therapeutic range for Coumadin and related oral anticoagulants. - International Normalized Ratio (INR): 2.0 - 3.0 for Venous Thrombosis, Pulmonary Embolus, Tissue heart valves, Acute [place] Atrial Fibrillation, Valvular heart disease and recurrent Systemic Embolism. - International Normalized Ratio (INR): 2.5 - 3.5 for Mechanical Prosthetic valve. ID Date Data Source [id number] 08/10/2020 07:22:00 PM [facility] Name Value Range Interpretation Code Description Data [facility](s) Supporting Document(s) pH of Serum or Plasma 7.34 7.32 - 7.43 [facility] pCO2 V 72.4 mm/HG 38.0 - 51.0 H [facility] pital pO2 V 24.5 mm/HG 30.0 - 55.0 L [facility] pital Bicarbonate [Moles/volume] in Venous blood 38.2 meq/L 22.0 - 29.0 H [facility] TCO2 V 40.4 meq/L 22.0 - 29.0 H [facility] pital Base excess in Blood by calculation 10.0 -2.0 - 2.0 H [facility] O2 SAT V 41.0 % 40.0 - 85.0 [facility] ital ID Date Data Source [id number] 08/10/2020 07:22:00 PM [facility] Name Value Range Interpretation Code Description Data Sanjuana rce(s) Supporting Document(s) Lactate [Moles/volume] in Serum or Plasma 2.1 MMOL/L 0.2 - 2.2 [facility] ID Date Data Source [id number] 08/10/2020 07:17:00 PM EST [facility] Name Value Range Interpretation Code Description Data Sanjuana rce(s) Supporting Document(s) CBC W/AUTOMATED DIFF [facility] COMPLETE BLOOD COUNT Leukocytes [#/volume] in Blood by Automated count 7.5 10^3/uL 4.2 - 1 1.0 [facility] Erythrocytes [#/volume] in Blood by Automated count 4.42 10^6/uL 4. 50 - 6.30 L [facility] Hemoglobin [Mass/volume] in Blood 10.9 g/dL 14.0 - 16.0 L [facility] Hematocrit [Volume Fraction] of Blood by Automated count 36.1 % 4 1.0 - 51.0 L [facility] Erythrocyte mean corpuscular volume [Entitic volume] by Auto mated count 81.7 fL 80.0 - 94.0 [facility] Erythrocyte mean corpuscular hemoglobin [Entitic mass] by Automated count 24.7 pg 27.0 - 34.0 L [facility] Erythrocyte mean corpuscular hemoglobin concentration [Mass/volume] by Automated count 30.2 g/dL 31.0 - 36.0 L [facility] Erythrocyte distribution width [Ratio] by Automated count 17.4 % 11.5 - 14.8 H [facility] Platelets [#/volume] in Blood by Automated count 275 10^3/uL 150 - 45 0 [facility] Platelet mean volume [Entitic volume] in Blood by Automated count 9.0 fL 7.4 - 10.4 [facility] Neutrophils/100 leukocytes in Blood by Automated count 78.5 % 37. 0 - 80.0 [facility] Lymphocytes/100 leukocytes in Blood by Manual count 6.8 % 25.0 - 40.0 L [facility] Monocytes/100 leukocytes in Blood by Automated count 12.3 % 3.0 - 8.0 H [facility] Eosinophils/100 leukocytes in Blood by Automated count 0.1 % 0.0 - 7.0 [facility] Basophils/100 leukocytes in Blood by Automated count 0.4 % 0.0 - 2.0 [facility] %IG 1.9 % 0.0 - 0.0 H [facility] %NRBC 0.0 % 0.0 - 0.0 [facility] al Neutrophils [#/volume] in Blood by Automated count 5.88 10^3/uL 2.00 - 6.90 [facility] Lymphocytes [#/volume] in Blood by Automated count 0.51 10^3/uL 0.60 - 3.40 L [facility] Monocytes [#/volume] in Blood by Automated count 0.92 10^3/uL 0.00 - 0.90 H [facility] Eosinophils [#/volume] in Blood by Automated count 0.01 10^3/uL 0.00 - 0.70 [facility] Basophils [#/volume] in Blood by Automated count 0.03 10^3/uL 0.00 - 0.20 [facility] #IG 0.14 10^3/uL 0.00 - 0.10 H [facility] ospital #NRBC 0.00 10^3/uL 0.00 - 0.00 [facility] osp[facility] MANUAL DIFF NOT INDICATED [facility] RBC MORPH NOT INDICATED [facility] ID Date Data Source [id number] 08/06/2020 12:00:00 AM EST [facility] Name Value Range Interpretation Code Description Data Sanjuana rce(s) Supporting Document(s) SARS-CoV2 Rapid Antigen Positive [facility] This lab was ordered by [facility] and reported by [facility]. ID Date Data Source [id number] 08/03/2020 12:00:00 PM EST [facility] Name Value Range Interpretation Code Description Data Sanjuana rce(s) Supporting Document(s) SARS coronavirus 2 RNA Detected [facility] This lab was ordered by [facility] Emily forbes and reported by [email or web address]. ID Date Data Source [id number] 08/07/2020 04:11:00 PM EST [facility] Name Value Range Interpretation Code Description Data Sanjuana rce(s) Supporting Document(s) SARS-CoV-2, DOMINICK Detected Not Detected [facility] This nucleic acid amplification test was developed and its performancecharacteristics determined by [facility]. Nucleic acidamplification tests include RT-PCR and TMA. This test has not beenFDA cleared or approved. This test has been authorized by FDA underan Emergency Use Authorization (EUA). This test is only authorizedfor the duration of time the declaration that circumstances existjustifying the authorization of the emergency use of in vitrodiagnostic tests for detection of SARS-CoV-2 virus and/or diagnosisof COVID-19 infection under section 564(b)(1) of the Act, 21 U.S.C.360bbb-3(b) (1), unless the authorization is terminated or revokedsooner.When diagnostic testing is negative, the possibility of a falsenegative result should be considered in the context of a patient'srecent exposures and the presence of clinical signs and symptomsconsistent with COVID- 19. An individual without symptoms of COVID-19and who is not shedding SARS-CoV-2 virus would expect to have anegative (not detected) result in this assay. ID Date Data Source [id number] 07/30/2020 09:42:00 AM EST [facility] Name Value Range Interpretation Code Description Data Sanjuana rce(s) Supporting Document(s) COMPREHENSIVE METABOLIC PANEL [facility] COMPREHENSIVE METABOLIC PANEL Sodium [Moles/volume] in Serum or Plasma 137 mEq/L 134 - 153 [facility] Potassium [Moles/volume] in Serum or Plasma 4.5 mEq/L 3.6 - 5.0 [facility] Chloride [Moles/volume] in Serum or Plasma 98 mEq/L 98 - 107 [facility] Carbon dioxide, total [Moles/volume] in Serum or Plasma 33 MEQ/L 22 - 30 H [facility] Glucose [Mass/volume] in Serum or Plasma 151 MG/DL 65 - 110 H [facility] BUN 22 MG/DL 7 - 21 H [facility] al Creatinine [Mass/volume] in Serum or Plasma 0.6 MG/DL 0.7 - 1.5 L [facility] BUN/CREAT 37 8 - 27 H [facility] Protein [Mass/volume] in Serum or Plasma 5.8 G/DL 6.3 - 8.2 L [facility] Albumin [Mass/volume] in Serum or Plasma 3.3 G/DL 3.9 - 5.0 L [facility] Globulin [Mass/volume] in Serum by calculation 2.5 GM/DL 2.4 - 3.2 [facility] A/G RATIO 1.3 0.8 - 2.0 [facility] Calcium [Mass/volume] in Serum or Plasma 8.5 MG/DL 8.4 - 10.2 [facility] Bilirubin.total [Mass/volume] in Serum or Plasma <0.7 MG/DL 0.2 - 1.3 [facility] Alkaline phosphatase [Enzymatic activity/volume] in Serum or Plasma 72 U/L 38 - 126 [facility] Aspartate aminotransferase [Enzymatic activity/volume] in Serum or Plasma 18 U/L 5 - 40 [facility] Alanine aminotransferase [Enzymatic activity/volume] in Seru m or Plasma 24 U/L 7 - 56 [facility] Anion gap 3 in Serum or Plasma 6.0 mmol/L 8.0 - 16.0 L [facility] AGE 65 yrs [facility] al NON-AA GFR >60 mL/min [facility] ital AFR AMER GFR >60 mL/min [facility] Male GFR In terprentation 20-49 yrs >60 mL/min Normal 50-59 yrs >56 mL/min Normal 60-69 yrs >49 mL/min Normal 70-79yrs >42 mL/min Normal 80 and above >35 mL/min Normal Female GFR Interpretation 20-39 yrs >60 mL/min Normal 40-49 yrs >58 mL/min Normal 50-59 yrs >51 mL/min Normal 60-69 yrs >45 mL/min Normal 70-79 yrs >39 mL/min Normal 80 and above >32 mL/min Normal ID Date Data Source [id number] 07/30/2020 08:52:00 AM EST [facility] Name Value Range Interpretation Code Description Data Sanjuana rce(s) Supporting Document(s) Erythrocyte sedimentation rate by Westergren method 21 mm/hr 0 - 20 H [facility] SED RATE REENTER 21 [facility] ID Date Data Source [id number] 07/30/2020 08:37:00 AM EST [facility] Name Value Range Interpretation Code Description Data Sanjuana rce(s) Supporting Document(s) CBC NO DIFF [facility] ital COMPLETE BLOOD COUNT Leukocytes [#/volume] in Blood by Automated count 8.1 10^3/uL 4.2 - 1 1.0 [facility] Erythrocytes [#/volume] in Blood by Automated count 5.01 10^6/uL 4. 50 - 6.30 [facility] Hemoglobin [Mass/volume] in Blood 12.6 g/dL 14.0 - 16.0 L [facility] Hematocrit [Volume Fraction] of Blood by Automated count 41.0 % 4 1.0 - 51.0 [facility] Erythrocyte mean corpuscular volume [Entitic volume] by Auto mated count 81.8 fL 80.0 - 94.0 [facility] Erythrocyte mean corpuscular hemoglobin [Entitic mass] by Automated count 25.1 pg 27.0 - 34.0 L [facility] Erythrocyte mean corpuscular hemoglobin concentration [Mass/volume] by Automated count 30.7 g/dL 31.0 - 36.0 L [facility] Erythrocyte distribution width [Ratio] by Automated count 17.9 % 11.5 - 14.8 H [facility] Platelets [#/volume] in Blood by Automated count 118 10^3/uL 150 - 45 0 L [facility] Platelet mean volume [Entitic volume] in Blood by Automated count 10.8 fL 7.4 - 10.4 H [facility] ID Date Data Source [id number] 07/27/2020 11:45:00 AM EST [facility] Name Value Range Interpretation Code Description Data Sanjuana rce(s) Supporting Document(s) SARS coronavirus 2 RNA Not Detected [facility] This lab was ordered by [facility] leidy and reported by [facility]. ID Date Data Source [id number] 07/30/2020 06:25:00 AM EST [facility] Name Value Range Interpretation Code Description Data Sanjuana rce(s) Supporting Document(s) SARS-CoV-2, DOMINICK Not Detected Not Detected [facility] This nucleic acid amplification test was developed and its performancecharacteristics determined by [facility]. Nucleic acidamplification tests include PCR and TMA. This test has not been FDAcleared or approved. This test has been authorized by FDA under anEmergency Use Authorization (EUA). This test is only authorized forthe duration of time the declaration that circumstances existjustifying the authorization of the emergency use of in vitrodiagnostic tests for detection of SARS-CoV-2 virus and/or diagnosisof COVID-19 infection under section 564(b)(1) of the Act, 21 U.S.C.360bbb-3(b) (1), unless the authorization is terminated or revokedsooner.When diagnostic testing is negative, the possibility of a falsenegative result should be considered in the context of a patient'srecent exposures and the presence of clinical signs and symptomsconsistent with COVID- 19. An individual without symptoms of COVID-19and who is not shedding SARS-CoV-2 virus would expect to have anegative (not detected) result in this assay. ORDER COVID 19 2 DAY YES [facility] ID Date Data Source [id number] 07/23/2020 09:00:00 AM EST [facility] Name Value Range Interpretation Code Description Data Sanjuana rce(s) Supporting Document(s) SARS coronavirus 2 RNA Not Detected [facility] This lab was ordered by [facility] Emily forbes and reported by [facility]. ID Date Data Source [id number] 07/26/2020 06:35:00 AM EST [facility] Name Value Range Interpretation Code Description Data Sanjuana rce(s) Supporting Document(s) SARS-CoV-2, DOMINICK Not Detected Not Detected [facility] This nucleic acid amplification test was developed and its performancecharacteristics determined by [facility]. Nucleic acidamplification tests include PCR and TMA. This test has not been FDAcleared or approved. This test has been authorized by FDA under anEmergency Use Authorization (EUA). This test is only authorized forthe duration of time the declaration that circumstances existjustifying the authorization of the emergency use of in vitrodiagnostic tests for detection of SARS-CoV-2 virus and/or diagnosisof COVID-19 infection under section 564(b)(1) of the Act, 21 U.S.C.360bbb-3(b) (1), unless the authorization is terminated or revokedsooner.When diagnostic testing is negative, the possibility of a falsenegative result should be considered in the context of a patient'srecent exposures and the presence of clinical signs and symptomsconsistent with COVID- 19. An individual without symptoms of COVID-19and who is not shedding SARS-CoV-2 virus would expect to have anegative (not detected) result in this assay. ORDER COVID 19 2 DAY YES [facility] ID Date Data Source [id number] 07/20/2020 01:50:00 PM EST [facility] Name Value Range Interpretation Code Description Data Sanjuana rce(s) Supporting Document(s) SARS coronavirus 2 RNA Not Detected [facility] This lab was ordered by [facility] Emily forbes and reported by [email or web address]. ID Date Data Source [id number] 07/23/2020 08:55:00 AM EST [facility] Name Value Range Interpretation Code Description Data Sanjuana rce(s) Supporting Document(s) SARS-CoV-2, DOMINICK Not Detected Not Detected [facility] This nucleic acid amplification test was developed and its performancecharacteristics determined by [employer] (acquired by [employer]). Nucleic acidamplification tests include PCR and TMA. This test has not been FDAcleared or approved. This test has been authorized by FDA under anEmergency Use Authorization (EUA). This test is only authorized forthe duration of time the declaration that circumstances existjustifying the authorization of the emergency use of in vitrodiagnostic tests for detection of SARS-CoV-2 virus and/or diagnosisof COVID-19 infection under section 564(b)(1) of the Act, 21 U.S.C.360bbb-3(b) (1), unless the authorization is terminated or revokedsooner.When diagnostic testing is negative, the possibility of a falsenegative result should be considered in the context of a patient'srecent exposures and the presence of clinical signs and symptomsconsistent with COVID- 19. An individual without symptoms of COVID-19and who is not shedding SARS-CoV-2 virus would expect to have anegative (not detected) result in this assay. ORDER COVID 19 2 DAY YES [facility] ID Date Data Source [id number] 07/16/2020 10:00:00 AM EST [facility] Name Value Range Interpretation Code Description Data Sanjuana rce(s) Supporting Document(s) SARS coronavirus 2 RNA [facility] This lab was ordered by [facility] Emily forbes and reported by [facility]. ID Date Data Source [id number] 07/17/2020 03:13:00 PM EST [facility] Name Value Range Interpretation Code Description Data Sanjuana rce(s) Supporting Document(s) SARS-CoV-2, DOMINICK Not Detected Not Detected [facility] This nucleic acid amplification test was developed and its performancecharacteristics determined by [employer] (ac[employer] by [employer]). Nucleic acidamplification tests include PCR and TMA. This test has not been FDAcleared or approved. This test has been authorized by FDA under anEmergency Use Authorization (EUA). This test is only authorized forthe duration of time the declaration that circumstances existjustifying the authorization of the emergency use of in vitrodiagnostic tests for detection of SARS-CoV-2 virus and/or diagnosisof COVID-19 infection under section 564(b)(1) of the Act, 21 U.S.C.360bbb-3(b) (1), unless the authorization is terminated or revokedsooner.When diagnostic testing is negative, the possibility of a falsenegative result should be considered in the context of a patient'srecent exposures and the presence of clinical signs and symptomsconsistent with COVID- 19. An individual without symptoms of COVID-19and who is not shedding SARS-CoV-2 virus would expect to have anegative (not detected) result in this assay. ID Date Data Source [id number] 07/16/2020 09:45:00 AM [facility] Name Value Range Interpretation Code Description Data Sanjuana rce(s) Supporting Document(s) Ferritin [Mass/volume] in Serum or Plasma 285.6 ng/mL 5.0 - 244 H [facility] ID Date Data Source [id number] 07/16/2020 09:45:00 AM [facility] Name Value Range Interpretation Code Description Data Sanjuana rce(s) Supporting Document(s) Thyroxine (T4) free index in Serum or Plasma by calculation 1.77 NG/DL 0.93 - 1.70 H [facility] ID Date Data Source [id number] 07/16/2020 09:45:00 AM [facility] Name Value Range Interpretation Code Description Data Sanjuana rce(s) Supporting Document(s) Thyrotropin [Units/volume] in Serum or Plasma by Detec tion limit <= 0.05 mIU/L 0.41 uIU/mL 0.47 - 5.01 L [facility] ID Date Data Source [id number] 07/16/2020 09:45:00 AM [facility] Value Range Interpretation Code Description Data Sanjuana rce(s) Supporting Document(s) BASIC METABOLIC PANEL [facility] BASIC METABOLIC PANEL Sodium [Moles/volume] in Serum or Plasma 136 mEq/L 134 - 153 [facility] Potassium [Moles/volume] in Serum or Plasma 5.1 mEq/L 3.6 - 5.0 H [facility] Chloride [Moles/volume] in Serum or Plasma 96 mEq/L 98 - 107 L [facility] Carbon dioxide, total [Moles/volume] in Serum or Plasma 34 MEQ/L 22 - 30 H [facility] Glucose [Mass/volume] in Serum or Plasma 233 MG/DL 65 - 110 H [facility] BUN 23 MG/DL 7 - 21 H [facility] Creatinine [Mass/volume] in Serum or Plasma 0.6 MG/DL 0.7 - 1.5 L [facility] BUN/CREAT 38 8 - 27 [facility] Cal[facility] [Mass/volume] in Serum or Plasma 8.7 MG/DL 8.4 - 10.2 [facility] Anion gap 3 in Serum or Plasma 6.0 mmol/L 8.0 - 16.0 L [facility] AGE 65 yrs [facility] al AFR AMER GFR >60 mL/min [facility] NON-AA GFR >60 mL/min [facility] ital Male GFR Inter prentation 20-49 yrs >60 mL/min Normal 50-59 yrs >56 mL/min Normal 60-69 yrs >49 mL/min Normal 70-79yrs >42 mL/min Normal 80 and above >35 mL/min Normal Female GFR Interpretation 20-39 yrs >60 mL/min Normal 40-49 yrs >58 mL/min Normal 50-59 yrs >51 mL/min Normal 60-69 yrs >45 mL/min Normal 70-79 yrs >39 mL/min Normal 80 and above >32 mL/min Normal ID Date Data Source [id number] 07/16/2020 09:44:00 AM [facility] Name Value Range Interpretation Code Description Data Sanjuana rce(s) Supporting Document(s) Hemoglobin A1c/Hemoglobin.total in Blood 8.9 % 4.4 - 6.1 H [facility] {A1]{HB] ID Date Data Source [id number] 07/16/2020 09:29:00 AM EST [facility] Name Value Range Interpretation Code Description Data Sanjuana rce(s) Supporting Document(s) CVE PANEL [facility] LIPID PANEL Cholesterol [Mass/volume] in Serum or Plasma 147 MG/DL 131 - 200 [facility] Deprecated Triglyceride [Mass/volume] in Serum or Plasma 130 MG/DL 3 5 - 160 [facility] HDL 40 MG/DL 29 - 86 [facility] Cholesterol in LDL [Mass/volume] in Serum or Plasma by Direc t assay 92 mg/dL 65 - 175 [facility] Cholesterol.total/Cholesterol in HDL [Mass Ratio] in Serum o r Plasma 3.7 3.4 - 4.9 [facility] LDL/HDL 2.30 1.00 - 3.55 [facility] ital CVE RISK CHOL/HDL LDL/HDLMEN: 1/2 AVERAGE 3.43 1.00 AVERAGE 4.97 3.55 2X AVERAGE 9.55 6.25 3X AVERAGE 23.99 7.99WOMEN: 1/2 AVERAGE 3.27 1.47 AVERAGE 4.44 3.22 2X AVERAGE 7.05 5.03 3X AVERAGE 11.04 6.14 ID Date Data Source [id number] 07/16/2020 09:29:00 AM [facility] Name Value Range Interpretation Code Description Data Sanjuana rce(s) Supporting Document(s) Iron [Mass/volume] in Serum or Plasma 47 UG/DL 42 - 135 [facility] Iron binding capacity.unsaturated [Mass/volume] in Serum or Plasma 223 UG/DL 112 - 347 [facility] Iron binding capacity [Mass/volume] in Serum or Plasma 270 ug/dL 250 - 450 [facility] Iron saturation [Mass Fraction] in Serum or Plasma 17 % [facility] ID Date Data Source [id number] 07/16/2020 09:29:00 AM [facility] Name Value Range Interpretation Code Description Data Sanjuana rce(s) Supporting Document(s) Magnesium [Mass/volume] in Serum or Plasma 1.7 MG/DL 1.7 - 2.2 [facility] ID Date Data Source [id number] 07/16/2020 07:54:00 AM [facility] Name Value Range Interpretation Code Description Data Sanjuana rce(s) Supporting Document(s) CBC NO DIFF [facility] ital COMPLETE BLOOD COUNT Leukocytes [#/volume] in Blood by Automated count 12.7 10^3/uL 4.2 - 11.0 H [facility] Erythrocytes [#/volume] in Blood by Automated count 4.89 10^6/uL 4. 50 - 6.30 [facility] Hemoglobin [Mass/volume] in Blood 11.8 g/dL 14.0 - 16.0 L [facility] Hematocrit [Volume Fraction] of Blood by Automated count 39.5 % 4 1.0 - 51.0 L [facility] Erythrocyte mean corpuscular volume [Entitic volume] by Auto mated count 80.8 fL 80.0 - 94.0 [facility] Erythrocyte mean corpuscular hemoglobin [Entitic mass] by Automated count 24.1 pg 27.0 - 34.0 L [facility] Erythrocyte mean corpuscular hemoglobin concentration [Mass/volume] by Automated count 29.9 g/dL 31.0 - 36.0 L [facility] Erythrocyte distribution width [Ratio] by Automated count 16.8 % 11.5 - 14.8 H [facility] Platelets [#/volume] in Blood by Automated count 437 10^3/uL 150 - 45 0 [facility] Platelet mean volume [Entitic volume] in Blood by Automated count 10.1 fL 7.4 - 10.4 [facility] ID Date Data Source [id number] 07/14/2020 03:46:00 PM EST [facility] Name Value Range Interpretation Code Description Data Sanjuana rce(s) Supporting Document(s) Vancomycin [Mass/volume] in Serum or Plasma --trough 8.8 ug/mL 10.0 - 15.0 L [facility] TROUG H First trough is drawn 30 minutes prior to fourth dose. If patient is not hemodynamically stable, a trough is obtained as deemed medically necessary. If patient is hemodynamically stable, a trough should be drawn once a week. The trough is drawn 30 minutes prior to the next dose. Mild Infections Trough 10-15 mg/L Severe Infections Trough 15-20 mg/L [employer] Infections Trough 20-25 mg/L *Severe Infections - Endocarditis, Osteomyelitis, Hospital Acquired Pneumonia, Sepsis ID Date Data Source [id number] 07/14/2020 11:45:00 AM EST [facility] Name Value Range Interpretation Code Description Data Sanjuana rce(s) Supporting Document(s) COVID-19 [facility] This lab was ordered by [facility] and reported by [facility]. ID Date Data Source [id number] 07/14/2020 11:45:00 AM EST [facility] Name Value Range Interpretation Code Description Data Sanjuana rce(s) Supporting Document(s) COVID-19 [facility] This lab was ordered by [facility] and reported by [facility]. ID Date Data Source [id number] 07/14/2020 12:33:00 PM EST [facility] Name Value Range Interpretation Code Description Data Sanjuana rce(s) Supporting Document(s) COVID-19 NOT DETECTED [facility] COVID-19 [facility]ENTER NOT DETECTED [facility] { PROCEDURAL CONTROL VALID KIT LOT # [id number] 07/14/20.1233 . KIT EXP DATE _10/22/20 07/14/20. . NORMAL RANGE IS NOT DETECTEDNEGATIVE RESULTS SHOULD BE TREATED PREUMPTIVE AND, IF INCONSISTENT WITHCLINICAL SIGNS AND SYMPTOMS OR NECESSARY FOR PATIENT MANAGEMENT, SHOULD BETESTED WITH DIFFERENT AUTHORIZED OR CLEARED MOLECULAR TESTS. NEGATIVE RESULTSDO NOT PRECLUDE SARS-CoV-2 INFECTION AND SHOULD NOT BE USED THE SOLE BASISFOR PATIENT MANAGEMENT DECISIONS. ID Date Data Source [id number] 07/14/2020 07:24:00 AM EST [facility] Name Value Range Interpretation Code Description Data Sanjuana rce(s) Supporting Document(s) COMPREHENSIVE METABOLIC PANEL [facility] COMPREHENSIVE METABOLIC PANEL Sodium [Moles/volume] in Serum or Plasma 133 mEq/L 134 - 153 L [facility] Potassium [Moles/volume] in Serum or Plasma 5.0 mEq/L 3.6 - 5.0 [facility] Chloride [Moles/volume] in Serum or Plasma 95 mEq/L 98 - 107 L [facility] Carbon dioxide, total [Moles/volume] in Serum or Plasma 31 MEQ/L 22 - 30 H [facility] Glucose [Mass/volume] in Serum or Plasma 218 MG/DL 65 - 110 H [facility] BUN 22 MG/DL 7 - 21 [facility] Creatinine [Mass/volume] in Serum or Plasma 0.7 MG/DL 0.7 - 1.5 [facility] BUN/CREAT 31 8 - 27 [facility] Protein [Mass/volume] in Serum or Plasma 5.8 G/DL 6.3 - 8.2 L [facility] Albumin [Mass/volume] in Serum or Plasma 3.1 G/DL 3.9 - 5.0 L [facility] Globulin [Mass/volume] in Serum by calculation 2.7 GM/DL 2.4 - 3.2 [facility] A/G RATIO 1.1 0.8 - 2.0 [facility] Calcium [Mass/volume] in Serum or Plasma 9.0 MG/DL 8.4 - 10.2 [facility] Bilirubin.total [Mass/volume] in Serum or Plasma <0.7 MG/DL 0.2 - 1.3 [facility] Alkaline phosphatase [Enzymatic activity/volume] in Serum or Plasma 72 U/L 38 - 126 [facility] Aspartate aminotransferase [Enzymatic activity/volume] in Serum or Plasma 21 U/L 5 - 40 [facility] Alanine aminotransferase [Enzymatic activity/volume] in Seru m or Plasma 305 U/L 7 - 56 H [facility] Anion gap 3 in Serum or Plasma 7.0 mmol/L 8.0 - 16.0 L [facility] AGE 65 yrs [facility] NON-AA GFR >60 mL/min [facility] AFR AMER GFR >60 mL/min [facility] Male GFR In terprentation 20-49 yrs >60 mL/min Normal 50-59 yrs >56 mL/min Normal 60-69 yrs >49 mL/min Normal 70-79yrs >42 mL/min Normal 80 and above >35 mL/min Normal Female GFR Interpretation 20-39 yrs >60 mL/min Normal 40-49 yrs >58 mL/min Normal 50-59 yrs >51 mL/min Normal 60-69 yrs >45 mL/min Normal 70-79 yrs >39 mL/min Normal 80 and above >32 mL/min Normal ID Date Data Source [id number] 07/14/2020 06:49:00 AM EST [facility] Name Value Range Interpretation Code Description Data Sanjuana rce(s) Supporting Document(s) CBC W/AUTOMATED DIFF [facility] COMPLETE BLOOD COUNT Leukocytes [#/volume] in Blood by Automated count 14.4 10^3/uL 4.2 - 11.0 H [facility] Erythrocytes [#/volume] in Blood by Automated count 4.84 10^6/uL 4. 50 - 6.30 [facility] Hemoglobin [Mass/volume] in Blood 11.7 g/dL 14.0 - 16.0 L [facility] Hematocrit [Volume Fraction] of Blood by Automated count 38.3 % 4 1.0 - 51.0 L [facility] Erythrocyte mean corpuscular volume [Entitic volume] by Auto mated count 79.1 fL 80.0 - 94.0 L [facility] Erythrocyte mean corpuscular hemoglobin [Entitic mass] by Automated count 24.2 pg 27.0 - 34.0 L [facility] Erythrocyte mean corpuscular hemoglobin concentration [Mass/volume] by Automated count 30.5 g/dL 31.0 - 36.0 L [facility] Erythrocyte distribution width [Ratio] by Automated count 17.0 % 11.5 - 14.8 H [facility] Platelets [#/volume] in Blood by Automated count 445 10^3/uL 150 - 45 0 [facility] Platelet mean volume [Entitic volume] in Blood by Automated count 9.9 fL 7.4 - 10.4 [facility] Neutrophils/100 leukocytes in Blood by Automated count 83.6 % 37. 0 - 80.0 H [facility] Lymphocytes/100 leukocytes in Blood by Manual count 7.5 % 25.0 - 40.0 L [facility] Monocytes/100 leukocytes in Blood by Automated count 6.9 % 3.0 - 8.0 [facility] Eosinophils/100 leukocytes in Blood by Automated count 0.1 % 0.0 - 7.0 [facility] Basophils/100 leukocytes in Blood by Automated count 0.3 % 0.0 - 2.0 [facility] %IG 1.6 % 0.0 - 0.0 [facility] %NRBC 0.0 % 0.0 - 0.0 [facility] Neutrophils [#/volume] in Blood by Automated count 12.02 10^3/uL 2. 00 - 6.90 H [facility] Lymphocytes [#/volume] in Blood by Automated count 1.08 10^3/uL 0.60 - 3.40 [facility] Monocytes [#/volume] in Blood by Automated count 0.99 10^3/uL 0.00 - 0.90 H [facility] Eosinophils [#/volume] in Blood by Automated count 0.01 10^3/uL 0.00 - 0.70 [facility] Basophils [#/volume] in Blood by Automated count 0.04 10^3/uL 0.00 - 0.20 [facility] #IG 0.23 10^3/uL 0.00 - 0.10 [facility] #NRBC 0.00 10^3/uL 0.00 - 0.00 [facility]spital MANUAL DIFF NOT INDICATED [facility] RBC MORPH NOT INDICATED [facility] sp[facility] ID Date Data Source [id number] 07/13/2020 07:01:00 AM EST [facility] Name Value Range Interpretation Code Description Data Sanjuana rce(s) Supporting Document(s) COMPREHENSIVE METABOLIC PANEL [facility] COMPREHENSIVE METABOLIC PANEL Sodium [Moles/volume] in Serum or Plasma 137 mEq/L 134 - 153 [facility] Potassium [Moles/volume] in Serum or Plasma 4.9 mEq/L 3.6 - 5.0 [facility] Chloride [Moles/volume] in Serum or Plasma 97 mEq/L 98 - 107 L [facility] Carbon dioxide, total [Moles/volume] in Serum or Plasma 30 MEQ/L 22 - 30 [facility] Glucose [Mass/volume] in Serum or Plasma 178 MG/DL 65 - 110 H [facility] BUN 23 MG/DL 7 - 21 [facility] [facility] Creat[facility] [Mass/volume] in Serum or Plasma 0.8 MG/DL 0.7 - 1.5 [facility] BUN/CREAT 29 8 - 27 H [facility] Protein [Mass/volume] in Serum or Plasma 5.8 G/DL 6.3 - 8.2 L [facility] Albumin [Mass/volume] in Serum or Plasma 3.1 G/DL 3.9 - 5.0 L [facility] Globulin [Mass/volume] in Serum by calculation 2.7 GM/DL 2.4 - 3.2 [facility] A/G RATIO 1.1 0.8 - 2.0 [facility] Calcium [Mass/volume] in Serum or Plasma 8.9 MG/DL 8.4 - 10.2 [facility] Bilirubin.total [Mass/volume] in Serum or Plasma <0.7 MG/DL 0.2 - 1.3 [facility] Alkaline phosphatase [Enzymatic activity/volume] in Serum or Plasma 75 U/L 38 - 126 [facility] Aspartate aminotransferase [Enzymatic activity/volume] in Serum or Plasma 28 U/L 5 - 40 [facility] Alanine aminotransferase [Enzymatic activity/volume] in Seru m or Plasma 442 U/L 7 - 56 H [facility] Anion gap 3 in Serum or Plasma 10.0 mmol/L 8.0 - 16.0 [facility] AGE 65 yrs [facility] NON-AA GFR >60 mL/min [facility] ital AFR AMER GFR >60 mL/min [facility] Male GFR In terprentation 20-49 yrs >60 mL/min Normal 50-59 yrs >56 mL/min Normal 60-69 yrs >49 mL/min Normal 70-79yrs >42 mL/min Normal 80 and above >35 mL/min Normal Female GFR Interpretation 20-39 yrs >60 mL/min Normal 40-49 yrs >58 mL/min Normal 50-59 yrs >51 mL/min Normal 60-69 yrs >45 mL/min Normal 70-79 yrs >39 mL/min Normal 80 and above >32 mL/min Normal ID Date Data Source [id number] 07/13/2020 06:21:00 AM EST [facility] Name Value Range Interpretation Code Description Data Sanjuana rce(s) Supporting Document(s) CBC W/AUTOMATED DIFF [facility] COMPLETE BLOOD COUNT Leukocytes [#/volume] in Blood by Automated count 12.7 10^3/uL 4.2 - 11.0 H [facility] Erythrocytes [#/volume] in Blood by Automated count 5.04 10^6/uL 4. 50 - 6.30 [facility] Hemoglobin [Mass/volume] in Blood 12.1 g/dL 14.0 - 16.0 L [facility] Hematocrit [Volume Fraction] of Blood by Automated count 39.8 % 4 1.0 - 51.0 L [facility] Erythrocyte mean corpuscular volume [Entitic volume] by Auto mated count 79.0 fL 80.0 - 94.0 L [facility] Erythrocyte mean corpuscular hemoglobin [Entitic mass] by Automated count 24.0 pg 27.0 - 34.0 L [facility] Erythrocyte mean corpuscular hemoglobin concentration [Mass/volume] by Automated count 30.4 g/dL 31.0 - 36.0 L [facility] Erythrocyte distribution width [Ratio] by Automated count 16.7 % 11.5 - 14.8 H [facility] Platelets [#/volume] in Blood by Automated count 426 10^3/uL 150 - 45 0 [facility] Platelet mean volume [Entitic volume] in Blood by Automated count 10.1 fL 7.4 - 10.4 [facility] Neutrophils/100 leukocytes in Blood by Automated count 85.9 % 37. 0 - 80.0 H [facility] Lymphocytes/100 leukocytes in Blood by Manual count 6.8 % 25.0 - 40.0 L [facility] Monocytes/100 leukocytes in Blood by Automated count 4.7 % 3.0 - 8.0 [facility] Eosinophils/100 leukocytes in Blood by Automated count 0.1 % 0.0 - 7.0 [facility] Basophils/100 leukocytes in Blood by Automated count 0.4 % 0.0 - 2.0 [facility] %IG 2.1 % 0.0 - 0.0 H [facility] %NRBC 0.2 % 0.0 - 0.0 H [facility] al Neutrophils [#/volume] in Blood by Automated count 10.91 10^3/uL 2. 00 - 6.90 H [facility] Lymphocytes [#/volume] in Blood by Automated count 0.86 10^3/uL 0.60 - 3.40 [facility] Monocytes [#/volume] in Blood by Automated count 0.59 10^3/uL 0.00 - 0.90 [facility] Eosinophils [#/volume] in Blood by Automated count 0.01 10^3/uL 0.00 - 0.70 [facility] Basophils [#/volume] in Blood by Automated count 0.05 10^3/uL 0.00 - 0.20 [facility] #IG 0.26 10^3/uL 0.00 - 0.10 H [facility] ospital #NRBC 0.02 10^3/uL 0.00 - 0.00 H [facility] ospital MANUAL DIFF NOT INDICATED [facility] RBC MORPH NOT INDICATED [facility] spital ID Date Data Source [id number] 07/12/2020 01:50:00 PM EST [facility] Name Value Range Interpretation Code Description Data Sanjuana rce(s) Supporting Document(s) Potassium [Moles/volume] in Serum or Plasma 4.3 mEq/L 3.6 - 5.0 [facility] ID Date Data Source [id number] 07/12/2020 09:40:00 AM EST [facility] Name Value Range Interpretation Code Description Data Sanjuana rce(s) Supporting Document(s) CBC W/AUTOMATED DIFF [facility] COMPLETE BLOOD COUNT Leukocytes [#/volume] in Blood by Automated count 13.4 10^3/uL 4.2 - 11.0 H [facility] Erythrocytes [#/volume] in Blood by Automated count 5.19 10^6/uL 4. 50 - 6.30 [facility] Hemoglobin [Mass/volume] in Blood 12.6 g/dL 14.0 - 16.0 L [facility] Hematocrit [Volume Fraction] of Blood by Automated count 41.1 % 4 1.0 - 51.0 [facility] Erythrocyte mean corpuscular volume [Entitic volume] by Auto mated count 79.2 fL 80.0 - 94.0 L [facility] Erythrocyte mean corpuscular hemoglobin [Entitic mass] by Automated count 24.3 pg 27.0 - 34.0 L [facility] Erythrocyte mean corpuscular hemoglobin concentration [Mass/volume] by Automated count 30.7 g/dL 31.0 - 36.0 L [facility] Erythrocyte distribution width [Ratio] by Automated count 16.5 % 11.5 - 14.8 H [facility] Platelets [#/volume] in Blood by Automated count 461 10^3/uL 150 - 45 0 H [facility] Platelet mean volume [Entitic volume] in Blood by Automated count 9.7 fL 7.4 - 10.4 [facility] Neutrophils/100 leukocytes in Blood by Automated count 83.2 % 37. 0 - 80.0 H [facility] Lymphocytes/100 leukocytes in Blood by Manual count 9.3 % 25.0 - 40.0 L [facility] Monocytes/100 leukocytes in Blood by Automated count 6.0 % 3.0 - 8.0 [facility] Eosinophils/100 leukocytes in Blood by Automated count 0.0 % 0.0 - 7.0 [facility] Basophils/100 leukocytes in Blood by Automated count 0.2 % 0.0 - 2.0 [facility] %IG 1.3 % 0.0 - 0.0 H [facility] %NRBC 0.0 % 0.0 - 0.0 [facility] al Neutrophils [#/volume] in Blood by Automated count 11.14 10^3/uL 2. 00 - 6.90 H [facility] Lymphocytes [#/volume] in Blood by Automated count 1.25 10^3/uL 0.60 - 3.40 [facility] Monocytes [#/volume] in Blood by Automated count 0.81 10^3/uL 0.00 - 0.90 [facility] Eosinophils [#/volume] in Blood by Automated count 0.00 10^3/uL 0.00 - 0.70 [facility] Basophils [#/volume] in Blood by Automated count 0.03 10^3/uL 0.00 - 0.20 [facility] #IG 0.18 10^3/uL 0.00 - 0.10 H [facility] ospital #NRBC 0.00 10^3/uL 0.00 - 0.00 [facility] ospital MANUAL DIFF NOT INDICATED [facility] RBC MORPH NOT INDICATED [facility] spital ID Date Data Source [id number] 07/12/2020 09:40:00 AM [facility] Name Value Range Interpretation Code Description Data Sanjuana rce(s) Supporting Document(s) Ferritin [Mass/volume] in Serum or Plasma 413.0 ng/mL 5.0 - 244 H [facility] ID Date Data Source [id number] 07/12/2020 09:40:00 AM [facility] Name Value Range Interpretation Code Description Data Sanjuana rce(s) Supporting Document(s) Lactate dehydrogenase [Enzymatic activity/volume] in Serum o r Plasma 299 U/L 135 - 225 H [facility] ID Date Data Source [id number] 07/12/2020 09:01:00 AM [facility] Name Value Range Interpretation Code Description Data Sanjuana rce(s) Supporting Document(s) C reactive protein [Mass/volume] in Serum or Plasma by High sensitivity method 76.71 MG/L 1.00 - 3.00 H [facility]/S HS-CRP CUT-OFF: RELATIVE RISK: <1.0 mg/L Low 1.0 - 3.0 mg/L Average >3.0 mg/L High Optimally, the average of HS-CRP results repeated two weeks apart should be used for risk assessment. ID Date Data Source [id number] 07/12/2020 09:00:00 AM [facility] Name Value Range Interpretation Code Description Data Sanjuana rce(s) Supporting Document(s) BNP 537 PG/ML 0 - 125 H [facility] ID Date Data Source [id number] 07/12/2020 09:00:00 AM [facility] Name Value Range Interpretation Code Description Data Sanjuana rce(s) Supporting Document(s) COMPREHENSIVE METABOLIC PANEL [facility] COMPREHENSIVE METABOLIC PANEL Sodium [Moles/volume] in Serum or Plasma 133 mEq/L 134 - 153 L [facility] Potassium [Moles/volume] in Serum or Plasma 5.3 mEq/L 3.6 - 5.0 H [facility] Chloride [Moles/volume] in Serum or Plasma 95 mEq/L 98 - 107 L [facility] Carbon dioxide, total [Moles/volume] in Serum or Plasma 28 MEQ/L 22 - 30 [facility] Glucose [Mass/volume] in Serum or Plasma 195 MG/DL 65 - 110 H [facility] BUN 19 MG/DL 7 - 21 [facility] Creatinine [Mass/volume] in Serum or Plasma 0.7 MG/DL 0.7 - 1.5 [facility] BUN/CREAT 27 8 - 27 [facility] Protein [Mass/volume] in Serum or Plasma 6.3 G/DL 6.3 - 8.2 [facility] Albumin [Mass/volume] in Serum or Plasma 2.8 G/DL 3.9 - 5.0 L [facility] Globulin [Mass/volume] in Serum by calculation 3.5 GM/DL 2.4 - 3.2 H [facility] A/G RATIO 0.8 0.8 - 2.0 [facility] Calcium [Mass/volume] in Serum or Plasma 8.8 MG/DL 8.4 - 10.2 [facility] Bilirubin.total [Mass/volume] in Serum or Plasma <0.7 MG/DL 0.2 - 1.3 [facility] Alkaline phosphatase [Enzymatic activity/volume] in Serum or Plasma 79 U/L 38 - 126 [facility] Aspartate aminotransferase [Enzymatic activity/volume] in Serum or Plasma 55 U/L 5 - 40 H [facility] Alanine aminotransferase [Enzymatic activity/volume] in Seru m or Plasma 642 U/L 7 - 56 H [facility] Anion gap 3 in Serum or Plasma 10.0 mmol/L 8.0 - 16.0 [facility] AGE 65 yrs [facility] al NON-AA GFR >60 mL/min [facility] ital AFR AMER GFR >60 mL/min Health system Male GFR In terprentation 20-49 yrs >60 mL/min Normal 50-59 yrs >56 mL/min Normal 60-69 yrs >49 mL/min Normal 70-79yrs >42 mL/min Normal 80 and above >35 mL/min Normal Female GFR Interpretation 20-39 yrs >60 mL/min Normal 40-49 yrs >58 mL/min Normal 50-59 yrs >51 mL/min Normal 60-69 yrs >45 mL/min Normal 70-79 yrs >39 mL/min Normal 80 and above >32 mL/min Normal ID Date Data Source [id number] 07/11/2020 08:13:00 AM EST [facility] Name Value Range Interpretation Code Description Data Sanjuana e(s) Supporting Document(s) SARS coronavirus 2 RNA [facility] This lab was ordered by Health system and reported by [facility]. ID Date Data Source [id number] 07/12/2020 02:15:00 PM EST [facility] Name Value Range Interpretation Code Description Data Sanjuana rce(s) Supporting Document(s) SARS-CoV-2, DOMINICK Not Detected Not Detected [facility] This nucleic acid amplification test was developed and its performancecharacteristics determined by [facility]. Nucleic acidamplification tests include PCR and TMA. This test has not been FDAcleared or approved. This test has been authorized by FDA under anEmergency Use Authorization (EUA). This test is only authorized forthe duration of time the declaration that circumstances existjustifying the authorization of the emergency use of in vitrodiagnostic tests for detection of SARS-CoV-2 virus and/or diagnosisof COVID-19 infection under section 564(b)(1) of the Act, 21 U.S.C.360bbb-3(b) (1), unless the authorization is terminated or revokedsooner.When diagnostic testing is negative, the possibility of a falsenegative result should be considered in the context of a patient'srecent exposures and the presence of clinical signs and symptomsconsistent with COVID- 19. An individual without symptoms of COVID-19and who is not shedding SARS-CoV-2 virus would expect to have anegative (not detected) result in this assay. ID Date Data Source [id number] 07/11/2020 08:56:00 AM EST [facility] Name Value Range Interpretation Code Description Data Sanjuana rce(s) Supporting Document(s) COMPREHENSIVE METABOLIC PANEL [facility] COMPREHENSIVE METABOLIC PANEL Sodium [Moles/volume] in Serum or Plasma 137 mEq/L 134 - 153 [facility] Potassium [Moles/volume] in Serum or Plasma 4.9 mEq/L 3.6 - 5.0 [facility] Chloride [Moles/volume] in Serum or Plasma 98 mEq/L 98 - 107 [facility] Carbon dioxide, total [Moles/volume] in Serum or Plasma 32 MEQ/L 22 - 30 H [facility] Glucose [Mass/volume] in Serum or Plasma 213 MG/DL 65 - 110 H [facility] BUN 14 MG/DL 7 - 21 [facility] Creat[facility] [Mass/volume] in Serum or Plasma 0.6 MG/DL 0.7 - 1.5 L [facility] BUN/CREAT 23 8 - 27 [facility] al Protein [Mass/volume] in Serum or Plasma 5.6 G/DL 6.3 - 8.2 L [facility] Albumin [Mass/volume] in Serum or Plasma 2.9 G/DL 3.9 - 5.0 L [facility] Globulin [Mass/volume] in Serum by calculation 2.7 GM/DL 2.4 - 3.2 [facility] A/G RATIO 1.1 0.8 - 2.0 [facility] al Calcium [Mass/volume] in Serum or Plasma 8.5 MG/DL 8.4 - 10.2 [facility] Bilirubin.total [Mass/volume] in Serum or Plasma <0.7 MG/DL 0.2 - 1.3 [facility] Alkaline phosphatase [Enzymatic activity/volume] in Serum or Plasma 83 U/L 38 - 126 [facility] Aspartate aminotransferase [Enzymatic activity/volume] in Serum or Plasma 108 U/L 5 - 40 H [facility] Alanine aminotransferase [Enzymatic activity/volume] in Seru m or Plasma 965 U/L 7 - 56 H [facility] Anion gap 3 in Serum or Plasma 7.0 mmol/L 8.0 - 16.0 L [facility] AGE 65 yrs [facility] al NON-AA GFR >60 mL/min [facility] ital AFR AMER GFR >60 mL/min [facility]ital Male GFR In terprentation 20-49 yrs >60 mL/min Normal 50-59 yrs >56 mL/min Normal 60-69 yrs >49 mL/min Normal 70-79yrs >42 mL/min Normal 80 and above >35 mL/min Normal Female GFR Interpretation 20-39 yrs >60 mL/min Normal 40-49 yrs >58 mL/min Normal 50-59 yrs >51 mL/min Normal 60-69 yrs >45 mL/min Normal 70-79 yrs >39 mL/min Normal 80 and above >32 mL/min Normal ID Date Data Source [id number] 07/11/2020 09:12:00 AM EST [facility] Name Value Range Interpretation Code Description Data Sanjuana rce(s) Supporting Document(s) CBC W/AUTOMATED DIFF [facility] COMPLETE BLOOD COUNT Leukocytes [#/volume] in Blood by Automated count 12.6 10^3/uL 4.2 - 11.0 H [facility] Erythrocytes [#/volume] in Blood by Automated count 4.85 10^6/uL 4. 50 - 6.30 [facility] Hemoglobin [Mass/volume] in Blood 11.8 g/dL 14.0 - 16.0 L [facility] Hematocrit [Volume Fraction] of Blood by Automated count 38.6 % 4 1.0 - 51.0 L [facility] Erythrocyte mean corpuscular volume [Entitic volume] by Auto mated count 79.6 fL 80.0 - 94.0 L [facility] Erythrocyte mean corpuscular hemoglobin [Entitic mass] by Automated count 24.3 pg 27.0 - 34.0 L [facility] Erythrocyte mean corpuscular hemoglobin concentration [Mass/volume] by Automated count 30.6 g/dL 31.0 - 36.0 L [facility] Erythrocyte distribution width [Ratio] by Automated count 16.2 % 11.5 - 14.8 H [facility] Platelets [#/volume] in Blood by Automated count 409 10^3/uL 150 - 45 0 [facility] Platelet mean volume [Entitic volume] in Blood by Automated count 9.4 fL 7.4 - 10.4 [facility] Neutrophils/100 leukocytes in Blood by Automated count 81.4 % 37. 0 - 80.0 H [facility] Lymphocytes/100 leukocytes in Blood by Manual count 9.8 % 25.0 - 40.0 L [facility] Monocytes/100 leukocytes in Blood by Automated count 6.8 % 3.0 - 8.0 [facility] Eosinophils/100 leukocytes in Blood by Automated count 0.9 % 0.0 - 7.0 [facility] Basophils/100 leukocytes in Blood by Automated count 0.2 % 0.0 - 2.0 [facility] %IG 0.9 % 0.0 - 0.0 [facility] %NR[facility] 0.0 % 0.0 - 0.0 [facility] al Neutrophils [#/volume] in Blood by Automated count 10.22 10^3/uL 2. 00 - 6.90 H [facility] Lymphocytes [#/volume] in Blood by Automated count 1.23 10^3/uL 0.60 - 3.40 [facility] Monocytes [#/volume] in Blood by Automated count 0.85 10^3/uL 0.00 - 0.90 [facility] Eosinophils [#/volume] in Blood by Automated count 0.11 10^3/uL 0.00 - 0.70 [facility] Basophils [#/volume] in Blood by Automated count 0.03 10^3/uL 0.00 - 0.20 [facility] #IG 0.11 10^3/uL 0.00 - 0.10 H [facility] ospital #NRBC 0.00 10^3/uL 0.00 - 0.00 [facility] ospital MANUAL DIFF NOT INDICATED [facility] RBC MORPH NOT INDICATED [facility] spital ID Date Data Source [id number] 07/10/2020 04:06:00 PM [facility] Name Value Range Interpretation Code Description Data Sanjuana rce(s) Supporting Document(s) Vancomycin [Mass/volume] in Serum or Plasma --trough 6.9 ug/mL 10.0 - 15.0 L [facility] TROUG H First trough is drawn 30 minutes prior to fourth dose. If patient is not hemodynamically stable, a trough is obtained as deemed medically necessary. If patient is hemodynamically stable, a trough should be drawn once a week. The trough is drawn 30 minutes prior to the next dose. Mild Infections Trough 10-15 mg/L Severe Infections Trough 15-20 mg/L [employer] Infections Trough 20-25 mg/L *Severe Infections - Endocarditis, Osteomyelitis, Hospital Acquired Pneumonia, Sepsis ID Date Data Source [id number] 07/15/2020 10:39:00 AM [facility] [address] Name Value Range Interpretation Code Description Data Sanjuana rce(s) Supporting Document(s) Bacteria identified in Blood by Culture [facility] NO GROWTH AFTER 5 DAYS ID Date Data Source [id number] 07/16/2020 09:30:00 PM [facility] Name Value Range Interpretation Code Description Data Sanjuana rce(s) Supporting Document(s) CULTURE BLOOD [facility] spital _CULTURE BLOOD_{ PRELIM TEST PERFORMED AT [address] [address] CLIA# [id number] SEE SCANNED REPORT ID Date Data Source [id number] 07/16/2020 09:29:00 PM [facility] Name Value Range Interpretation Code Description Data Sanjuana rce(s) Supporting Document(s) CULTURE BLOOD [facility] spital _CULTURE BLOOD_{ PRELIM [place] [address] [place]# [id number] SEE SCANNED REPORT ID Date Data Source [id number] 07/10/2020 07:52:00 AM EST [facility] Name Value Range Interpretation Code Description Data Sanjuana rce(s) Supporting Document(s) CBC W/AUTOMATED DIFF [facility] COMPLETE BLOOD COUNT Leukocytes [#/volume] in Blood by Automated count 14.6 10^3/uL 4.2 - 11.0 H [facility] Erythrocytes [#/volume] in Blood by Automated count 4.42 10^6/uL 4. 50 - 6.30 L [facility] Hemoglobin [Mass/volume] in Blood 10.6 g/dL 14.0 - 16.0 L [facility] Hematocrit [Volume Fraction] of Blood by Automated count 35.4 % 4 1.0 - 51.0 L [facility] Erythrocyte mean corpuscular volume [Entitic volume] by Auto mated count 80.1 fL 80.0 - 94.0 [facility] Erythrocyte mean corpuscular hemoglobin [Entitic mass] by Automated count 24.0 pg 27.0 - 34.0 L [facility] Erythrocyte mean corpuscular hemoglobin concentration [Mass/volume] by Automated count 29.9 g/dL 31.0 - 36.0 L [facility] Erythrocyte distribution width [Ratio] by Automated count 16.3 % 11.5 - 14.8 H [facility] Platelets [#/volume] in Blood by Automated count 437 10^3/uL 150 - 45 0 [facility] Platelet mean volume [Entitic volume] in Blood by Automated count 9.3 fL 7.4 - 10.4 [facility] Neutrophils/100 leukocytes in Blood by Automated count 83.8 % 37. 0 - 80.0 H [facility] Lymphocytes/100 leukocytes in Blood by Manual count 7.2 % 25.0 - 40.0 L [facility] Monocytes/100 leukocytes in Blood by Automated count 8.2 % 3.0 - 8.0 H [facility] Eosinophils/100 leukocytes in Blood by Automated count 0.0 % 0.0 - 7.0 [facility] Basophils/100 leukocytes in Blood by Automated count 0.1 % 0.0 - 2.0 [facility] %IG 0.7 % 0.0 - 0.0 [facility] %NRBC 0.2 % 0.0 - 0.0 H [facility] al Neutrophils [#/volume] in Blood by Automated count 12.26 10^3/uL 2. 00 - 6.90 H [facility] Lymphocytes [#/volume] in Blood by Automated count 1.05 10^3/uL 0.60 - 3.40 [facility] Monocytes [#/volume] in Blood by Automated count 1.20 10^3/uL 0.00 - 0.90 H [facility] Eosinophils [#/volume] in Blood by Automated count 0.00 10^3/uL 0.00 - 0.70 [facility] Basophils [#/volume] in Blood by Automated count 0.01 10^3/uL 0.00 - 0.20 [facility] #IG 0.10 10^3/uL 0.00 - 0.10 [facility] ospital #NRBC 0.03 10^3/uL 0.00 - 0.00 H [facility]ital MANUAL DIFF SEE BELOW [facility] Segmented neutrophils/100 leukocytes in Blood by Manual count 90 % 37 - 80 H [facility] %LYMPH 5 % 25 - 40 L [facility] al %MONO 5 % 3 - 8 [facility] al RBC MORPH SEE BELOW [facility] al Anisocytosis [Presence] in Blood by Light microscopy 2+ SUSAN L: NONE SEEN A [facility] { SICKLE CELL (NORMAL: NONE SEEN ) Platelet adequacy [Presence] in Blood by Light microscopy IN CREASED NORMAL: NORMAL A [facility] COMMENT: _PLATELETS_SLIGHTLY_INCREAS ED 07/10/20.0752.TAD. . . ___ ID Date Data Source [id number] 07/10/2020 07:44:00 AM EST [facility] Name Value Range Interpretation Code Description Data Sanjuana rce(s) Supporting Document(s) COMPREHENSIVE METABOLIC PANEL [facility] COMPREHENSIVE METABOLIC PANEL Sodium [Moles/volume] in Serum or Plasma 138 mEq/L 134 - 153 [facility] Potassium [Moles/volume] in Serum or Plasma 4.3 mEq/L 3.6 - 5.0 [facility] Chloride [Moles/volume] in Serum or Plasma 101 mEq/L 98 - 107 [facility] Carbon dioxide, total [Moles/volume] in Serum or Plasma 32 MEQ/L 22 - 30 H [facility] Glucose [Mass/volume] in Serum or Plasma 169 MG/DL 65 - 110 H [facility] BUN 23 MG/DL 7 - 21 [facility] Creatinine [Mass/volume] in Serum or Plasma 0.7 MG/DL 0.7 - 1.5 [facility] BUN/CREAT 33 8 - 27 [facility] Protein [Mass/volume] in Serum or Plasma 5.7 G/DL 6.3 - 8.2 L [facility] Albumin [Mass/volume] in Serum or Plasma 2.9 G/DL 3.9 - 5.0 L [facility] Globulin [Mass/volume] in Serum by calculation 2.8 GM/DL 2.4 - 3.2 [facility] A/G RATIO 1.0 0.8 - 2.0 [facility] Calcium [Mass/volume] in Serum or Plasma 8.4 MG/DL 8.4 - 10.2 [facility] Bilirubin.total [Mass/volume] in Serum or Plasma <0.7 MG/DL 0.2 - 1.3 [facility] Alkaline phosphatase [Enzymatic activity/volume] in Serum or Plasma 85 U/L 38 - 126 [facility] Aspartate aminotransferase [Enzymatic activity/volume] in Serum or Plasma 320 U/L 5 - 40 H [facility] Anion gap 3 in Serum or Plasma 5.0 mmol/L 8.0 - 16.0 L [facility] 65 [facility] >60 mL/min [facility] ital AFR AMER GFR >60 mL/min [facility] Male GFR In terprentation 20-49 yrs >60 mL/min Normal 50-59 yrs >56 mL/min Normal 60-69 yrs >49 mL/min Normal 70-79yrs >42 mL/min Normal 80 and above >35 mL/min Normal Female GFR Interpretation 20-39 yrs >60 mL/min Normal 40-49 yrs >58 mL/min Normal 50-59 yrs >51 mL/min Normal 60-69 yrs >45 mL/min Normal 70-79 yrs >39 mL/min Normal 80 and above >32 mL/min Normal ID Date Data Source [id number] 07/09/2020 09:45:00 AM EST [facility] Name Value Range Interpretation Code Description Data Sanjuana rce(s) Supporting Document(s) COMPREHENSIVE METABOLIC PANEL [facility] COMPREHENSIVE METABOLIC PANEL Sodium [Moles/volume] in Serum or Plasma 139 mEq/L 134 - 153 [facility] Potassium [Moles/volume] in Serum or Plasma 4.7 mEq/L 3.6 - 5.0 [facility] Chloride [Moles/volume] in Serum or Plasma 102 mEq/L 98 - 107 [facility] Carbon dioxide, total [Moles/volume] in Serum or Plasma 30 MEQ/L 22 - 30 [facility] Glucose [Mass/volume] in Serum or Plasma 323 MG/DL 65 - 110 H [facility] BUN 40 MG/DL 7 - 21 [facility] Creatinine [Mass/volume] in Serum or Plasma 1.0 MG/DL 0.7 - 1.5 [facility] BUN/CREAT 40 8 - 27 H [facility] Protein [Mass/volume] in Serum or Plasma 5.7 G/DL 6.3 - 8.2 L [facility] Albumin [Mass/volume] in Serum or Plasma 2.8 G/DL 3.9 - 5.0 L [facility] Globulin [Mass/volume] in Serum by calculation 2.9 GM/DL 2.4 - 3.2 [facility] A/G RATIO 1.0 0.8 - 2.0 [facility] Calcium [Mass/volume] in Serum or Plasma 8.4 MG/DL 8.4 - 10.2 [facility] Bilirubin.total [Mass/volume] in Serum or Plasma <0.7 MG/DL 0.2 - 1.3 [facility] Alkaline phosphatase [Enzymatic activity/volume] in Serum or Plasma 88 U/L 38 - 126 [facility] Aspartate aminotransferase [Enzymatic activity/volume] in Serum or Plasma 653 U/L 5 - 40 H [facility] Alanine aminotransferase [Enzymatic activity/volume] i n Serum or Plasma 1955 U/L 7 - 56 H [facility] Anion gap 3 in Serum or Plasma 7.0 mmol/L 8.0 - 16.0 L [facility] AGE 65 yrs [facility] NON-AA GFR >60 mL/min [facility] ital AFR AMER GFR >60 mL/min [facility] Male GFR In terprentation 20-49 yrs >60 mL/min Normal 50-59 yrs >56 mL/min Normal 60-69 yrs >49 mL/min Normal 70-79yrs >42 mL/min Normal 80 and above >35 mL/min Normal Female GFR Interpretation 20-39 yrs >60 mL/min Normal 40-49 yrs >58 mL/min Normal 50-59 yrs >51 mL/min Normal 60-69 yrs >45 mL/min Normal 70-79 yrs >39 mL/min Normal 80 and above >32 mL/min Normal ID Date Data Source [id number] 07/09/2020 07:16:00 AM EST [facility] Name Value Range Interpretation Code Description Data Sanjuana rce(s) Supporting Document(s) CBC W/AUTOMATED DIFF [facility] COMPLETE BLOOD COUNT Leukocytes [#/volume] in Blood by Automated count 13.7 10^3/uL 4.2 - 11.0 H [facility] Erythrocytes [#/volume] in Blood by Automated count 4.30 10^6/uL 4. 50 - 6.30 L [facility] Hemoglobin [Mass/volume] in Blood 10.6 g/dL 14.0 - 16.0 L [facility] Hematocrit [Volume Fraction] of Blood by Automated count 34.8 % 4 1.0 - 51.0 L [facility] Erythrocyte mean corpuscular volume [Entitic volume] by Auto mated count 80.9 fL 80.0 - 94.0 [facility] Erythrocyte mean corpuscular hemoglobin [Entitic mass] by Automated count 24.7 pg 27.0 - 34.0 L [facility] Erythrocyte mean corpuscular hemoglobin concentration [Mass/volume] by Automated count 30.5 g/dL 31.0 - 36.0 L [facility] Erythrocyte distribution width [Ratio] by Automated count 16.5 % 11.5 - 14.8 H [facility] Platelets [#/volume] in Blood by Automated count 448 10^3/uL 150 - 45 0 [facility] Platelet mean volume [Entitic volume] in Blood by Automated count 9.7 fL 7.4 - 10.4 [facility] Neutrophils/100 leukocytes in Blood by Automated count 88.8 % 37. 0 - 80.0 H [facility] Lymphocytes/100 leukocytes in Blood by Manual count 3.8 % 25.0 - 40.0 L [facility] Monocytes/100 leukocytes in Blood by Automated count 6.6 % 3.0 - 8.0 [facility] Eosinophils/100 leukocytes in Blood by Automated count 0.0 % 0.0 - 7.0 [facility] Basophils/100 leukocytes in Blood by Automated count 0.1 % 0.0 - 2.0 [facility] %IG 0.7 % 0.0 - 0.0 [facility] %NRBC 0.0 % 0.0 - 0.0 [facility] Neutrophils [#/volume] in Blood by Automated count 12.17 10^3/uL 2. 00 - 6.90 H [facility] Lymphocytes [#/volume] in Blood by Automated count 0.52 10^3/uL 0.60 - 3.40 L [facility] Monocytes [#/volume] in Blood by Automated count 0.91 10^3/uL 0.00 - 0.90 H [facility] Eosinophils [#/volume] in Blood by Automated count 0.00 10^3/uL 0.00 - 0.70 [facility] Basophils [#/volume] in Blood by Automated count 0.01 10^3/uL 0.00 - 0.20 [facility] #IG 0.09 10^3/uL 0.00 - 0.10 [facility] #NRBC 0.00 10^3/uL 0.00 - 0.00 [facility] MANUAL DIFF NOT INDICATED [facility] RBC MORPH NOT INDICATED [facility] spital ID Date Data Source [id number] 07/08/2020 12:18:00 PM [facility] Name Value Range Interpretation Code Description Data Sanjuana rce(s) Supporting Document(s) Glucose [Mass/volume] in Serum or Plasma 480 MG/DL 65 - 110 [facility] CALL/ READ BACK LATRICE ON [facility] BY: CM [facility] DATE/TIME 07/08/[address] [facility] spital ID Date Data Source [id number] 07/08/2020 09:23:00 AM [facility] [address] [place] [address] PHONE: [phone] FAX: [phone] Name .................. : JAROD Ross Acct Number.................. : [id number] ROOM. ................. : TR-06 Number ................... : [id number] Stay type ............. : E/R Discharge Date......... ... : Admit Date ......... : 07/07/20 Admit Phys .................... : MIRIAM ACUNA Date of ....... : 1955 Family Phys ................... : ADY Phone .................. : [phone] Age ................................ : 65 Film# .................. .:[id number] Sex ................................. : M Unsigned transcriptions are preliminary reports and do not represent a medical or legal document CT THORAX W/O CONTRAST [id number] COMPLETE:07/07/20 13:56 BEM 722 Reason(s): COPD CT SCAN OF THE CHEST WIT UT IV CONTRAST, 07/07/20: INDICATION: COPD. Comparison is made to a previous examination from 12/28/2019. FINDINGS: Visualized portions of the thoracic inlet appear unremarkable. There are multiple nodes identified in the mediastinum with the largest measuring approximately 1.7 cm. Previously this measured 1.1 cm. AP window nodes are identified, largest measuring approximately 9 mm. No enlarged axillary lymph nodes are identified. Atherosclerotic disease is identified in the aorta. There is an infracarinal node measuring approximately 2.2 cm. Previously this measured approximately 1.3 cm. Atherosc lerotic disease is identified in the aorta and coronary arteries. Heart appears unremarkable. There is a small left side pleural effusion. Extensive bilateral infiltrates are identified diffusely in the lung fatima, left greater than right. Underlying COVID pneumonia is not excluded. IMPRESSION: Lymph nodes identified in the mediastinum increased in size as compared to the previous study. Bilateral diffuse infiltrates are identified, raising suspicion for COVID pneumonia. Small left pleural effusion. While performing the above CT examination, radiation dose reduction was accomplished utilizing automated exposure control, adjusting of the mA and kV based on the patient's body size and/or the use of imperative reconstructive techniques. CT dose 769.4 mGycm. Examination dictated by PRAFUL Griffin. Examination was reviewed with Tiffany Bergeron MD, radiologist at the time of this dictation. Page [address] [place] [address] PHONE: [phone] FAX: [phone] Name .................. : JAROD DIANA Ross Acct Number.................. : [id number] ROOM. ................. : TR-06 MR Number ................... : [id number] Stay type ............. : E/R Discharge Date......... ... : Admit Date ......... : 07/07/20 Admit Phys .................... : MIRIAM ACUNA Date of ....... : 1955 Family Phys ................... : ADY Phone .................. : [phone] Age ................................ : 65 Film# .................. .:[id number] Sex ................................. : M Unsigned transcriptions are preliminary reports and do not represent a medical or legal document CT THORAX W/O CONTRAST [id number] COMPLETE:07/07/20 13:56 BEM 722 Reason(s): COPD Electronically Reviewed and Signed By Tiffany Bergeron MD , 07/08/20 09:23, KGG Transcribe Initials: SSR, Transcribe Date: 07/07/20 14:43, Dictation Date: Copy for: [facility] Copy for: [address] [facility] Page 2 of 2 Name Value Range Interpretation Code Description Data Sanjuana rce(s) Supporting Document(s) ID Date Data Source [id number] 07/08/2020 09:23:00 AM EST [facility] [address] [place] [address] PHONE: [phone] FAX: [phone] Name .................. : JAROD Ross Acct Number.................. : [id number] ROOM. ................. : TR-06 Number ................... : [id number] Stay type ............. : E/R Discharge Date......... ... : Admit Date ......... : 07/07/20 Admit Phys .................... : MIRIAM ACUNA Date of ....... : 1955 Family Phys ................... : ADY Phone .................. : [phone] Age ................................ : 65 Film# .................. .:[id number] Sex ................................. : M Unsigned transcriptions are preliminary reports and do not represent a medical or legal document CHEST PORTABLE [id number] COMPLETE:07/07/20 13:02 BE 719 Reason(s): COPD PORTABLE CHEST, 07/07/20: INDICATION: COPD. Comparison is made to a previous study from 04/01/2020. FINDINGS: Examination reveals near complete opacification of the bilateral lung fatima, left worse than right. Findings are worrisome for CHF versus pneumonia. Cardiac silhouette is enlarged. IMPRESSION: Bilateral infiltrates. CHF versus pneumonia. Examination dictated by PRAFUL Griffin. Examination was reviewed with Tiffany Bergeron MD, radiologist at the time of this dictation. Electronically Reviewed and Signed By Tiffany Bergeron MD , 07/08/20 09:23, KGG Transcribe Initials: SSR, Transcribe Date: 07/07/20 13:28, Dictation Date: Copy for: [address] [facility] Copy for: [address] [facility] Page 1 of 1 Name Value Range Interpretation Code Description Data Sanjuana rce(s) Supporting Document(s) ID Date Data Source [id number] 07/08/2020 08:30:00 AM EST [facility] Name Value Range Interpretation Code Description Data Sanjuana rce(s) Supporting Document(s) COMPREHENSIVE METABOLIC PANEL [facility] COMPREHENSIVE METABOLIC PANEL Sodium [Moles/volume] in Serum or Plasma 139 mEq/L 134 - 153 [facility] Potassium [Moles/volume] in Serum or Plasma 4.5 mEq/L 3.6 - 5.0 [facility] Chloride [Moles/volume] in Serum or Plasma 99 mEq/L 98 - 107 [facility] Carbon dioxide, total [Moles/volume] in Serum or Plasma 29 MEQ/L 22 - 30 [facility] Glucose [Mass/volume] in Serum or Plasma 314 MG/DL 65 - 110 H [facility] BUN 57 MG/DL 7 - 21 H [facility] Creatinine [Mass/volume] in Serum or Plasma 1.5 MG/DL 0.7 - 1.5 [facility] BUN/CREAT 38 8 - 27 [facility] Protein [Mass/volume] in Serum or Plasma 5.9 G/DL 6.3 - 8.2 L [facility] Albumin [Mass/volume] in Serum or Plasma 2.8 G/DL 3.9 - 5.0 L [facility] Globulin [Mass/volume] in Serum by calculation 3.1 GM/DL 2.4 - 3.2 [facility] A/G RATIO 0.9 0.8 - 2.0 [facility] Calcium [Mass/volume] in Serum or Plasma 8.6 MG/DL 8.4 - 10.2 [facility] Bilirubin.total [Mass/volume] in Serum or Plasma <0.7 MG/DL 0.2 - 1.3 [facility] Alkaline phosphatase [Enzymatic activity/volume] in Serum or Plasma 81 U/L 38 - 126 [facility] Aspartate aminotransferase [Enzymatic activity/volume] in Serum or Plasma 1593 U/L 5 - 40 H [facility] Alanine aminotransferase [Enzymatic activity/volume] i n Serum or Plasma 2221 U/L 7 - 56 H [facility] Anion gap 3 in Serum or Plasma 11.0 mmol/L 8.0 - 16.0 [facility] AGE 65 yrs [facility] NON-AA GFR 50 mL/min [facility] AFR AMER GFR 60 mL/min [facility] Male GFR In terprentation 20-49 yrs >60 mL/min Normal 50-59 yrs >56 mL/min Normal 60-69 yrs >49 mL/min Normal 70-79yrs >42 mL/min Normal 80 and above >35 mL/min Normal Female GFR Interpretation 20-39 yrs >60 mL/min Normal 40-49 yrs >58 mL/min Normal 50-59 yrs >51 mL/min Normal 60-69 yrs >45 mL/min Normal 70-79 yrs >39 mL/min Normal 80 and above >32 mL/min Normal ID Date Data Source [id number] 07/08/2020 08:13:00 AM EST [facility] Name Value Range Interpretation Code Description Data Sanjuana rce(s) Supporting Document(s) Magnesium [Mass/volume] in Serum or Plasma 2.1 MG/DL 1.7 - 2.2 [facility] ID Date Data Source [id number] 07/08/2020 08:11:00 AM [facility] Name Value Range Interpretation Code Description Data Sanjuana rce(s) Supporting Document(s) BNP 2102 PG/ML 0 - 125 H [facility] gege ID Date Data Source [id number] 07/08/2020 07:39:00 AM [facility] Name Value Range Interpretation Code Description Data Sanjuana rce(s) Supporting Document(s) Lactate [Moles/volume] in Serum or Plasma 1.5 MMOL/L 0.2 - 2.2 [facility] ID Date Data Source [id number] 07/08/2020 07:20:00 AM [facility] Name Value Range Interpretation Code Description Data Sanjuana rce(s) Supporting Document(s) CBC W/AUTOMATED DIFF [facility] COMPLETE BLOOD COUNT Leukocytes [#/volume] in Blood by Automated count 12.6 10^3/uL 4.2 - 11.0 H [facility] Erythrocytes [#/volume] in Blood by Automated count 4.17 10^6/uL 4. 50 - 6.30 L [facility] Hemoglobin [Mass/volume] in Blood 10.1 g/dL 14.0 - 16.0 L [facility] Hematocrit [Volume Fraction] of Blood by Automated count 33.1 % 4 1.0 - 51.0 L [facility] Erythrocyte mean corpuscular volume [Entitic volume] by Auto mated count 79.4 fL 80.0 - 94.0 L [facility] Erythrocyte mean corpuscular hemoglobin [Entitic mass] by Automated count 24.2 pg 27.0 - 34.0 L [facility] Erythrocyte mean corpuscular hemoglobin concentration [Mass/volume] by Automated count 30.5 g/dL 31.0 - 36.0 L [facility] Erythrocyte distribution width [Ratio] by Automated count 16.7 % 11.5 - 14.8 H [facility] Platelets [#/volume] in Blood by Automated count 432 10^3/uL 150 - 45 0 [facility] Platelet mean volume [Entitic volume] in Blood by Automated count 9.7 fL 7.4 - 10.4 [facility] Neutrophils/100 leukocytes in Blood by Automated count 91.4 % 37. 0 - 80.0 H [facility] Lymphocytes/100 leukocytes in Blood by Manual count 4.0 % 25.0 - 40.0 L [facility] Monocytes/100 leukocytes in Blood by Automated count 3.6 % 3.0 - 8.0 [facility] Eosinophils/100 leukocytes in Blood by Automated count 0.0 % 0.0 - 7.0 [facility] Basophils/100 leukocytes in Blood by Automated count 0.2 % 0.0 - 2.0 [facility] %IG 0.8 % 0.0 - 0.0 H [facility] %NRBC 0.0 % 0.0 - 0.0 [facility] Neutrophils [#/volume] in Blood by Automated count 11.55 10^3/uL 2. 00 - 6.90 H [facility] Lymphocytes [#/volume] in Blood by Automated count 0.50 10^3/uL 0.60 - 3.40 L [facility] Monocytes [#/volume] in Blood by Automated count 0.45 10^3/uL 0.00 - 0.90 [facility] Eosinophils [#/volume] in Blood by Automated count 0.00 10^3/uL 0.00 - 0.70 [facility] Basophils [#/volume] in Blood by Automated count 0.02 10^3/uL 0.00 - 0.20 [facility] #IG 0.10 10^3/uL 0.00 - 0.10 [facility] #NRBC 0.00 10^3/uL 0.00 - 0.00 [facility] MANUAL DIFF NOT INDICATED [facility] RBC MORPH NOT INDICATED [facility] spital ID Date Data Source [id number] 07/07/2020 08:35:00 PM EST [facility] [address] [place] [address] RESPIRATORY CARE REPORT ==== ---------NAME------- NUMBER SEX AGE ADMIT DISCElizabeth SHAHAY# F/C CARLTON Ross [id number] M 65 07/07/20 [id number] M4 I/P DATE OF : 1955 M/R# [id number] PH#: [phone] LOCATION: [place] [id number] COMP LETE:07/07/20 15:16 [place] [id number] PHYSICIAN: VANESA GE [facility] Name Value Range Interpretation Code Description Data Sanjuana rce(s) Supporting Document(s) ID Date Data Source [id number] 07/07/2020 07:11:00 PM [facility] Name Value Range Interpretation Code Description Data Sanjuana rce(s) Supporting Document(s) C reactive protein [Mass/volume] in Serum or Plasma by High sensitivity method >370.00 MG/L 1.00 - 3.00 H [facility] CDC/S HS-CRP CUT-OFF: RELATIVE RISK: <1.0 mg/L Low 1.0 - 3.0 mg/L Average >3.0 mg/L High Optimally, the average of HS-CRP results repeated two weeks apart should be used for risk assessment. ID Date Data Source [id number] 07/07/2020 07:10:00 PM [facility] Name Value Range Interpretation Code Description Data Sanjuana rce(s) Supporting Document(s) Lactate dehydrogenase [Enzymatic activity/volume] in Serum o r Plasma 2436 U/L 135 - 225 H [facility] ID Date Data Source [id number] 07/07/2020 07:10:00 PM [facility] Value Range Interpretation Code Description Data Sanjuana rce(s) Supporting Document(s) Ferritin [Mass/volume] in Serum or Plasma >2000.0 ng/mL 5.0 - 244 H [facility] ID Date Data Source [id number] 07/07/2020 06:35:00 PM [facility] Value Range Interpretation Code Description Data Sanjuana rce(s) Supporting Document(s) BASIC METABOLIC PANEL [facility] BASIC METABOLIC PANEL Sodium [Moles/volume] in Serum or Plasma 139 mEq/L 134 - 153 [facility] Potassium [Moles/volume] in Serum or Plasma 5.2 mEq/L 3.6 - 5.0 H [facility] Chloride [Moles/volume] in Serum or Plasma 98 mEq/L 98 - 107 [facility] Carbon dioxide, total [Moles/volume] in Serum or Plasma 27 MEQ/L 22 - 30 [facility] Glucose [Mass/volume] in Serum or Plasma 315 MG/DL 65 - 110 H [facility] BUN 61 MG/DL 7 - 21 [facility] Creatinine [Mass/volume] in Serum or Plasma 2.2 MG/DL 0.7 - 1.5 H [facility] BUN/CREAT 28 8 - 27 H [facility] Calcium [Mass/volume] in Serum or Plasma 8.5 MG/DL 8.4 - 10.2 [facility] Anion gap 3 in Serum or Plasma 14.0 mmol/L 8.0 - 16.0 [facility] AGE 65 yrs [facility] AMER GFR 39 mL/min [facility] NON-AA GFR 32 mL/min [facility] Male GFR Inter prentation 20-49 yrs >60 mL/min Normal 50-59 yrs >56 mL/min Normal 60-69 yrs >49 mL/min Normal 70-79yrs >42 mL/min Normal 80 and above >35 mL/min Normal Female GFR Interpretation 20-39 yrs >60 mL/min Normal 40-49 yrs >58 mL/min Normal 50-59 yrs >51 mL/min Normal 60-69 yrs >45 mL/min Normal 70-79 yrs >39 mL/min Normal 80 and above >32 mL/min Normal ID Date Data Source [id number] 07/07/2020 06:35:00 PM EST [facility] Name Value Range Interpretation Code Description Data Sanjuana rce(s) Supporting Document(s) Lactate [Moles/volume] in Serum or Plasma 2.6 MMOL/L 0.2 - 2.2 H [facility] ID Date Data Source [id number] 07/07/2020 11:35:00 AM EST [facility] 1 OrderSheet [facility] Emergency Department [address] [place] [address] Phone #: ext- [phone] 07/07/2020 11:34 Patient: DIANA OLIVERA Sex: M : 1955 Age: 65yWEIGHT:89.8 kg (S) HEIGHT:72 inches (S) BMI:26.9ALLERGIES: TAPECHIEF COMPLAINT: dyspnea, COPDDIAGNOSIS: Dyspnea, Pneumonia, Congestive heart failure, Respiratory failureLAB ORDERSOrder Description Priority Entered Acknowledged InitialedC w Diff STAT 11:47 07/07/2020 11:54 Miriam Almonte Riccardo Frank R.NElizabeth M.Addie.;CMP STAT 11:47 07/07/2020 11:54 Miriam Almonte Riccardo Frank R.N. M.Addie.;Lipase STAT 11:47 07/07/2020 11:54 Miriam Almonte Riccardo Frank R.N. M.D.;PT/PTT STAT 11:47 07/07/2020 11:54 Miriam Almonte Riccardo Frank R.N. M.Addie.;Troponin-T STAT 11:47 07/07/2020 11:54 Miriam Almonte Riccardo Frank R.N. M.D.;BNP STAT 11:47 07/07/2020 11:55 Miriam Almonte Riccardo Frank R.N. M.D.;Magnesium STAT 11:47 07/07/2020 11:55 Miriam Almonte Riccardo Frank R.N. M.D.;Blood Culture STAT 11:47 07/07/2020 12:02 Sorbero,q10m X2 (Sched Rigo Ge R.N.11:47 07/07/2020) Geraldine;Blood Culture STAT 11:47 07/07/2020 12:02 Sorbero,q10m X2 (Sched Rigo Ge R.N.11:57 07/07/2020) Geraldine;Lactic Acid STAT 11:47 07/07/2020 11:55 Miriam Almonte Riccardo Frank R.N. M.D.;Venous Blood Gas STAT 11:47 07/07/2020 11:55 aGge, 2 OrderSheet [facility] Emergency Department [address] [place] [address] Phone #: ext- [phone] 07/07/2020 11:34 Patient: DIANA OLIVERA Sex: M : 1955 Age: 65y Rigo Ge R.N., M.D.;Urinalysis (Cath STAT 11:47 07/07/2020 12:11 Gage,Spec) Rigo Ge R.N., M.D.;COVID-19 CAH (Not STAT 11:49 07/07/2020 11:55 Gage,Symptomatic as Rigo Ge R.N.Defined by CDC) M.D.;(07/07/2020) (FirstTest) (Hospitalized)(Not )(Resident inCongregate CareSetting) (NotEmployed inHealthcare Setting)Influenza Nasal A B STAT 11:49 07/07/2020 12:02 Miriam Almonte Riccardo Frank R.N. M.D.;CORONAVIRUS STAT 14:27 07/07/2020 14:35 Gage,COVID-19 Rigo Ge R.N.(Symptomatic as M.D.;Defined by CDC)(07/07/2020) (NotFirst Test)(Hospitalized) (Not)(Resident inCongregate CareSetting) (NotEmployed inHealthcare Setting)ABG STAT 15:09 07/07/2020 15:09 Miriam Almonte Riccardo Frank R.N. M.D.;ABG STAT 15:09 07/07/2020 Cancelled: duplicate 15:09 Gage Almonte Frank Frank R.N. R.N.; Verbal order per; Rigo Ge M.D.DIAGNOSTIC STUDY ORDERSOrder Description Priority Entered Acknowledged InitialedChest Portable 1 STAT 11:47 07/07/2020 11:55 Sorbero, 3 OrderSheet [facility] Emergency Department [address] [place] [address] Phone #: ext- [phone] 07/07/2020 11:34 Patient: DIANA OLIVERA Sex: M : 1955 Age: 65yView (Oxygen? Rigo Ge R.N.(Yes)) M.D.; Reason for Study: COPD, Shortness of BreathCT Chest W/O Cont STAT 12:37 07/07/2020 12:49 Sorbero,(Oxygen? (Yes)) Rigo Ge R.N. M.D.; Reason for Study: COPD, Cough, Fever, Shortness of BreathMEDICATION/IV/DRIP/FLUID ORDERSOrder Description Priority Entered Acknowledged InitialedNS IV 500 mL 11:47 07/07/2020 12:16 Sorbero,Bolus: : Bolus 500 Darielarin, Rigo Bob R.N.mL, then 150 mL/hr M.D.;(X1)DuoNeb 3 mL X2 11:47 07/07/2020 12:16 Sorbero,Doses (Filtered): 6 Turrin, Rigo Bob R.N.mL (3 mL X2 M.D.;Doses)SOLU-Medrol 125 11:47 07/07/2020 12:15 Sorbero,mg IV X1 Dose: 125 Turrin, Rigo Bob R.N.mg (X1) M.D.;NitroGLYCERIN 12:19 07/07/2020 12:50 Sorbero,Topical Ointment Rosendo Gecardo Bob R.N.1 in. M.D.;Lasix IVP 60 mg 12:19 07/07/2020 12:50 Sorbero, Darielarin, Rigo Bob R.N. MDeejay;Zosyn- IVPB 4.5 gm 12:20 07/07/2020 12:51 Sorbero,(in 50 mL D5W, X1) Rigo Ge.NElizabeth M.Dylan;NS IV : 100 mL/hr 13:39 07/07/2020 13:44 Sorbero, DarielarinRigo R.N. M.D.;Vancomycin IVPB 14:43 07/07/2020 15:05 Sorbero,(15 mg/kg) 1200 mg Rigo Ge R.N.with Dextrose M.D.;Intravenous 250 mL(D5W)GENERAL ORDERSOrder Description Priority Entered Acknowledged InitialedBlood Pressure 11:47 07/07/2020 11:54 Sorbero,Monitor Rigo Ge R.N. 4 OrderSheet [facility] Emergency Department [address] [place] [address] Phone #: ext- [phone] 07/07/2020 11:34 Patient: DIANA OLIVERA Sex: M : 1955 Age: 65y M.D.;Manager Pharmacy 11:47 2019 11:54 Sorbero,(continuous) Rigo GeNElizabeth M.Addie.;EKG 11:47 07/07/2020 11:54 Sorbero, Rigo Ge R.N. M.D.;NPO 11:47 07/07/2020 11:54 Sorbero, Rigo Ge R.N. M.D.;Obtain Old EKG 11:47 07/07/2020 11:54 Sorbero, Rigo Ge R.N. M.D.;Obtain Old Records 11:47 07/07/2020 11:54 Sorbero, Rigo Ge R.N. M.D.;Oxygen (40 %) 11:47 07/07/2020 12:18 Sorbero,(per Simple Mask) Rigo Ge R.N.(Titrate to O2 Sat M.D.;>92%)Oxygen titrate to 11:47 07/07/2020 11:54 Gage,92% Rigo Ge R.N., M.D.;Pulse oximeter 11:47 07/07/2020 11:54 Gage,(Continuous) Rigo Ge R.N., M.D.;Saline Lock 11:47 07/07/2020 11:54 Gage, Rigo Ge R.N., M.D.;Vitals 11:47 07/07/2020 11:54 Miriam Almonte Riccardo Frank R.N. M.D.;Straight Cath 11:47 07/07/2020 12:14 Miriam Almonte Riccardo Frank R.N. M.D.;Respiratory 14:24 07/07/2020 14:30 Gage,Therapy Request Rigo Ge R.N.(High Flow O2, M.D.;Vapotherm)Consult - 14:42 07/07/2020 14:42 Gage,Hospitalist Rigo Ge R.N., M.D.; 5 OrderSheet [facility] Emergency Department [address] [place] [address] Phone #: ext- [phone] 07/07/2020 11:34 Patient: DIANA OLIVERA Sex: M : 1955 Age: 65 y[Electronically signed by Rigo Ge M.D. (17:06 07/07/2020)][Electronically signed by Bob Almonte R.N. (17:31 07/07/2020)][Electronically locked by Bob Almonte R.N. (17:31 07/07/2020)] Name Value Range Interpretation Code Description Data Sanjuana rce(s) Supporting Document(s) ID Date Data Source [id number] 07/07/2020 11:35:00 AM EST [facility] 1 Medication Reconciliation Report [facility] Emergency Department [address] [place] [address] Phone #: ext- [phone] 07/07/2020 11:34 Patient: DIANA OLIVERA Sex: M : 1955 Age: 65yWeight: 89.8 kgHeight/Length: 72 in.BMI: 26.9ALLERGIES: TAPEThe patient's Home Medications are listed below:THE FOLLOWING MEDICATIONS NEED TO BE RECONCILED: Aspirin Oral (81 mg) 1 tablet, 2x a day Blast anti microbial wound gel DULoxetine HCl Oral (60 mg) 1 capsule, daily FentaNYL Transdermal (50 mcg/hr) 1 patch, q3days Fish Oil Oral 1200 mg, daily, every AM Gabapentin Oral (800 mg), 4x a day GlipiZIDE XL Oral (10 mg) 1 tablet, daily, last dose: 01/15 HumuLIN N Subcutaneous (100 unit/mL) 72 units dinner, daily, every PM HumuLIN N Subcutaneous 66 units, daily, every AM Lisinopril Oral (5 mg) 1 tablet, daily MetFORMIN HCl Oral (1000 mg) 1 tablet, 2x a day Metoprolol Tartrate Oral (25 mg) 1 tablet, 2x a day Niacin Oral (500 mg) 2 tablets, daily OxyCODONE HCl Oral 10 mg, q6h, pain, prn Pravachol Oral (20 mg) 1 tablet, daily, at bedtime 2 Medication Reconciliation Report [facility] Emergency Department [address] [place] [address] Phone #: ext- [phone] 07/07/2020 11:34 Patient: DIANA OLIVERA Sex: M : 1955 Age: 65y Travatan Z Ophthalmic (0.004 %) 1 drop, in each eye daily Vitamin, dailyThe source(s) of the original Home Medication information:patient's imported external medical recordThe following Medications were given to the patient in the Emergency Department:Solu-Medrol [IVP] IVP 125 mg, administered: 12:00 07/07/2020Duoneb [Neb Tx] Neb TX 2 unit dose, administered: 12:01 07/07/2020NS [IV] IV Fluids bolus 500 mL over 30 minute(s), then 150 mL/hr, administered: 12:16 07/07/2020NITROGLYCERIN [TOPICAL OINTMENT] Topical 1 in., administered: 12:49 07/07/2020Lasix [IVP] IVP 60 mg, administered: 12:50 07/07/2020Zosyn [IVPB] IVPB bolus 0, then 4.5 gm 100 mL/hr, administered: 12:51 07/07/2020NS [IV] IV Fluids bolus 0, then 100 mL/hr, administered: 13:44 07/07/2020Vancomycin [IVPB] IVPB bolus 0, then 1200 mg 167 mL/hr, administered: 15:05 07/07/2020The following Medications were prescribed to the patient:None. Name Value Range Interpretation Code Description Data Sanjuana rce(s) Supporting Document(s) ID Date Data Source [id number] 07/07/2020 11:35:00 AM EST [facility] 1 Medication Administration Record [facility] Emergency Department [address] [place] [address] Phone #: [phone]- [phone] 07/07/2020 11:34 Patient: DIANA OLIVERA Sex: M : 1955 Age: 65yWeight: 89.8 kgHeight/Length: 72 inBMI: 26.9ALLERGIES: TAPE Date/Time Medication Administered Medication OrderedStart NS [IV] NS IV 500 mL Bolus: : Bolus 80686:16 07/07/2020 Dose: IV Fluids mL, then 150 mL/hr (X1)Bob Almonte RDutch Rate: 150 mL/hr over 3 hour(s)---- Bolus: 500 mL over 30 minute(s)Stop Dispensed: 1000 mL bag12:23 07/07/2020 Site: #1 right Bob Matthews R.N.Given DUONEB [NEB TX] DuoNeb 3 mL X2 Doses (Filtered):12:01 07/07/2020 Dose: 2 unit dose Nebulizer Neb TX 6 mL (3 mL X2 Doses)Bob Almonte R.N.Given SOLU-MEDROL [IVP] SOLU-Medrol 125 mg IV X1 Dose:12:00 07/07/2020 (METHYLPREDNISOLONE SODIUM 125 mg (X1)Bob Almonte RElizabethNElizabeth SUCC) Dose: 125 mg IVP Site: #1 right ACGiven NITROGLYCERIN [TOPICAL OINTMENT] NitroGLYCERIN Hxhhcey40:49 07/07/2020 Dose: 1 in. Topical Ointment 1 in.Bob Almonte RDutchGiven LASIX [IVP] Lasix IVP 60 mg12:50 07/07/2020 Dose: 60 mg IVPSBob north RElizabethN. Site: #1 right ACStart ZOSYN [IVPB] (PIPERACILLIN Zosyn- IVPB 4.5 gm (in 50 mL12:51 07/07/2020 SOD-TAZOBACTAM SO) D5W, X1)Bob Almonte RElizabethNElizabeth Dose: 4.5 gm IVPB---- Rate: 100 mL/hr over 30 minute(s)Stop Dispensed: 50 mL bag13:44 07/07/2020 Site: #1 right Bob Matthews R.N.Start NS [IV] NS IV : 100 mL/hr13:44 07/07/2020 Dose: IV FluidsSoBob bliss RElizabethNElizabeth Rate: 100 mL/hr over 10 hour(s)---- Dispensed: 1000 mL bagStop Site: #1 right AC16:23 07/07/2020Bob Almonte R.N.Start VANCOMYCIN [IVPB] Vancomycin IVPB (15 mg/kg) 741537:05 07/07/2020 Dose: 1200 mg IVPB mg with Dextrose Intravenous 250Bob Almonte R.N. Rate: 167 mL/hr over 1.5 hour(s) mL (D5W)---- Dispensed: 250 mL bagStop Site: #2 right bovgezs41:33 07/07/2020Bob Almonte R.N. Name Value Range Interpretation Code Description Data [facility](s) Supporting Document(s) ID Date Data Source [id number] 07/07/2020 11:35:00 AM [facility] 1 General Instructions [facility] Emergency Department [address] [place] [address] Phone #: ext- [phone] 07/07/2020 11:34 Patient: DIANA OLIVERA Sex: M : 1955 Age: 65yAcute dyspnea.Chronic moderate systolic, left ventricular congestive heart failure.Acute respiratory failure with hypoxemia.Lobar pneumonia with hypoxemia, respiratory failure and sepsis. (Severe, B/L, R/O Covid).Rule Out CovidAcute Transaminitis.(Electronically signed by Rigo Ge M.D. 07/07/2020 17:06) Name Value Range Interpretation Code Description [facility](s) ID Date Data Source [id number] 07/07/2020 11:35:00 AM [facility] 1 Clinical Report - Nurses [facility] Emergency Department [address] [place] [address] Phone #: ext- [phone] 07/07/2020 11:34 Patient: DIANA OLIVERA [facility]#: [id number] Sex: M : 1955 Age: 65yTRIAGE Arrived by EMS. Historian: patient. ( presents with sa02 in 70's, shoulder pain). Triage time: 11:37 07/07/2020. Acuity: LEVEL 3. Chief Complaint: SHORTNESS OF BREATH and DIFFICULTY BREATHING. Alert. This started today. Treatment RETAIL PHARMACIST: None. SEPSIS SCREEN: SEPSIS SCREEN NEGATIVE. No suspected or confirmed signs of infection present. SKIN INTEGRITY ASSESSMENT: Skin breakdown noted on the right ankle and heel and left ankle and heel. --11:42 07/07/20 Bob Almonte R.N. 11:36 07/07/20. BP: 106/60. MAP: 75. HR: 74. RR: 24. O2 saturation: 93% on non-rebreather at 15 liters/minute. Temp: 99.6 F. Pain level now: 0/10. --11:42 07/07/20 Bob Almonte RElizabethN. Weight: 89.8 kg stated. Height/Length: 72 inches Per Patient. BMI: 26.9. --11:35 07/07/20 Bob Almonte RElizabethN. Medications Aspirin Oral (Tablet Delayed Release 81 mg) 1 tablet, 2x a day. Blast anti microbial wound gel. DULoxetine HCl Oral (Capsule Delayed Release Particles 60 mg) 1 capsule, daily. FentaNYL Transdermal (Patch 72 Hour 50 mcg/hr) 1 patch, q3days. Fish Oil Oral 1200 mg, daily every AM. Gabapentin Oral (Tablet 800 mg), 4x a day. GlipiZIDE XL Oral (Tablet Extended Release 24 Hour 10 mg) 1 tablet, daily, last dose 01/15. --11:39 07/07/20 Bob Almonte RElizabethN. HumuLIN N Subcutaneous (Suspension 100 unit/mL) 72 units dinner, daily every PM. HumuLIN N Subcutaneous 66 units, daily every AM. Lisinopril Oral (Tablet 5 mg) 1 tablet, daily. MetFORMIN HCl Oral (Tablet 1000 mg) 1 tablet, 2x a day. Metoprolol Tartrate Oral (Tablet 25 mg) 1 tablet, 2x a day. Niacin Oral (Tablet 500 mg) 2 tablets, daily. OxyCODONE HCl Oral 10 mg, q6h as needed, pain. Pravachol Oral (Tablet 20 mg) 1 tablet, daily at bedtime. 2 Clinical Report - Nurses [facility] Emergency Department [address] [place] [address] Phone #: ext- [phone] 07/07/2020 11:34 Patient: DIANA OLIVERA Sex: M : 1955 Age: 65yTravatan Z Ophthalmic (Solution 0.004 %) 1 drop, in each eye daily.Vitamin, daily. --11:39 07/07/20 Bob Almonte R.N.AllergiesTAPE. --11:39 07/07/20 Bob Almonte R.N.PROBLEMS:Hyperglycemia.Hypercholesterolemia.Heart Disease.Hypertension.Low testosterone.Hypomagnesemia.Hyperthyro idism.Degenerative hip disease.Cellulitis.Atrial Fibrillation.Degenerative Joint Disease.Glaucoma.Diabetes Mellitus.Dehydration.Muscle Strain, Upper Extremity.Sepsis (disorder).Seizure.Rotator cuff syndrome.Sleep Apnea.UTI - Urinary Tract Infection.Ulcers on toes and legs.Tremor.Osteoarthritis of Finger Joint.Neurological Disease.Narcotic Dependence.Osteomyelitis.Renal Insufficiency.Pneumonia. --11:40 07/07/20 Bob Almonte RElizabethN.Medication/allergy information source: the patient's previous visit record and imported external medicalrecord. --11:42 07/07/20 Bob Almonte R.N.ADDITIONAL SURGERIES:Am putation Lower Extremity (Left Great toe).C6 Corpectomy and Fusion c5-c6 w/ fibular strut graft .Cardiac catherization.Melanoma removal 1998. 3 Clinical Report - Nurses [facility] Emergency Department [address] [place] [address] Phone #: [phone]- [phone] 07/07/2020 11:34 [id number] Sex: M : 1955 Age: 65y Rotator Cuff Surgery. Stent placement 2016. --11:40 07/07/20 Bob Almonte R.N. History SOCIAL HX: Former smoker, end date 12/2019. No alcohol use or drug use. He was offered HIV testing but declined and hepatitis C testing but declined. He has not traveled outside the [place] Infectious disease exposure: No infectious disease exposure. The patient may have been exposed to Coronavirus. Patient taken to isolation room. SELF HARM ASSESSMENT: Self harm assessment was performed. The patient answered "no" to the question(s) "Have you recently felt down, depressed, or hopeless?", "Do you have thoughts of harming or killing yourself?", "Do you have a plan for harming or killing yourself?" and "Have you recently had thoughts about harming or killing others?". ABUSE ASSESSMENT: No report of abuse. FALL RISK ASSESSMENT: Fall risk assessment completed. Risk factors identified include patient age greater than 65 years. SKIN INTEGRITY ASSESSMENT: Skin integrity risk assessment was performed. Risk factors identified include restricted mobility. --11:42 07/07/20 Bob Almonte R.N. Assessment The patient states feels the same. --11:42 07/07/20 Bob Almonte R.N. Interventions Identification band on patient. To treatment room. Advanced care plan (full code). --11:42 07/07/20 Bob Almonte R.N.PHYSICAL ASSESSMENT 11:44 07/07/20. To room via stretcher. GENERAL / NEURO / PSYCH: Alert. Oriented X 4. Appears in no acute distress. HEENT: Mucous membranes are pink. RESPIRATORY: No respiratory distress. Respirations not labored. Chest nontender. Breath sounds within normal limits. CVS: Capillary refill less than 2 seconds. GI / : Abdomen soft and nontender. Bowel sounds within normal limits. SKIN: Skin is warm and dry. Normal skin turgor. --11:44 07/07/20 Bob Almonte R.N.NURSING PROGRESS NOTES 11:44 07/07/20. Oxygen administered by nonrebreather mask at [address] monitor, NIBP monitor and pulse oximeter placed on patient; monitor alarms on; see monitor strips. Patient gowned. Reassurance given. Two patient identifiers checked. Call light placed in reach. Side rails up x 2. Bed placed in lowest position. Brakes of bed on. Patient ready for evaluation- ED physician notified. --11:44 4 Clinical Report - Nurses [facility] Emergency Department [address] [place] [address] Phone #: ext- [phone] 07/07/2020 11:34 Patient: DIANA OLIVERA Sex: M : 1955 Age: 65y109/07/19 Bob Almonte R.N.11:47 07/07/20. Oxygen decreased to 2 liters by nasal cannula. --11:47 07/07/20 Bob Almonte R.N.11:47 07/07/20. O2 saturation: 93% on nasal cannula at 2 liters/minute. --11:47 07/07/20 Bob Almonte R.N.12:02 07/07/20. BP: 102/55. MAP: 70. HR: 74. RR: 24. O2 saturation: 97%. --12:02 07/07/20 Bob Almonte R.N.12:00 07/07/2020 Site #1 started via IV in the right antecubital space with an 20g angiocath, with aseptictechnique and good blood return; one attempt. Blood drawn: rainbow set and cultures x2. Labeled in thepresence of the patient and sent to the lab. Saline lock flushed with 10 mL saline. --12:15 07/07/20Bob north R.N.12:00 07/07/2020 Solu-Medrol (methylPREDNISolone Sodium Succ) IVP 125 mg given over 2 minute(s)via site #1. Allergies verified and confirmed 5 rights. IV patency established. IV site checked: no pain,redness, or swelling. IV flushed thoroughly pre- and post-medication administration. IVP given by RN.Information reviewed with patient including reason for taking this medication, signs of allergic reaction andprecautions. Verbalizes understanding. --12:15 07/07/20 Bob Almonte R.NElizabeth12:07/07/2020 Duoneb Neb TX Nebulizer 2 unit dose given. Given by the nurse. Allergies verified andconfirmed 5 rights. Information reviewed with patient including reason for taking this medication, signs ofallergic reaction and precautions. Verbalizes understanding. --12:16 07/07/20 Bob Almonte R.NElizabeth12:16 07/07/2020 Started bag #1 1000 mL IV Fluids NS; bolus of 500 mL over 30 minute(s) then at 150mL/hr over 3 hour(s) via site #1 via IV pump. Allergies verified and confirmed 5 rights. IV patencyestablished. IV site checked: no pain, redness, or swelling. IV flushed thoroughly pre- and post- medicationadministration. Information reviewed with patient including reason for taking this medication, signs ofallergic reaction and precautions. Verbalizes understanding. --12:07/07/20 Bob Almonte R.N.Patient ID band checked for patient name and birthdate: patient confirmed. Catheterized urine collectedwith return of orange-colored clear urine; odor is foul-smelling; sample sent to lab for urinalysis. Specimenlabeled in the presence of the patient. --12:17 07/07/20 Bob Almonte R.N.12:15 07/07/20. BP: 112/91. MAP: 98. HR: 73. RR: 24. O2 saturation: 96%. --12:07/07/20 Lisa Nascimento ER Yiev577:23 07/07/2020 IV Fluids NS via IV site #1 Discontinued: bag #1 discontinued. Total amount infused: 50mL. IV patency established. IV site checked: no pain, redness, or swelling. IV flushed thoroughly. --12 Bob Almonte R.N.12:32 07/07/20. BP: 115/57. MAP: 76. HR: 74. RR: 23. O2 saturation: 94%. --12:32 07/07/20 Lisa Nascimento ER [employer] 5 Clinical Report - Nurses [facility] Emergency Department [address] [place] [address] Phone #: ext- [phone] 07/07/2020 11:34 Patient: DIANA OLIVERA Sex: M : 1955 Age: 65y12:49 07/07/2020 NITROGLYCERIN Topical 1 inch given. Applied to the right chest. Allergies verified andconfirmed 5 rights. Information reviewed with patient including reason for taking this medication, signs ofallergic reaction and precautions. Verbalizes understanding. --12:50 07/07/20 Bob Almonte R.N.12:50 07/07/2020 Lasix IVP 60 mg given over 2 minute(s) via site #1. Allergies verified and confirmed 5rights. IV patency established. IV site checked: no pain, redness, or swelling. IV flushed thoroughly pre-and post- medication administration. IVP given by RN. Information reviewed with patient including reasonfor taking this medication, signs of allergic reaction and precautions. Verbalizes understanding. --12: Bob Almonte R.N.12:51 07/07/2020 Started 4.5 gm of Zosyn (Piperacillin Sod-Tazobactam So) IVPB in bag #1 50 mL; at 100mL/hr over 30 minute(s) via site #1. via IV pump. Allergies verified and confirmed 5 rights. IV patencyestablished. IV site checked: no pain, redness, or swelling. IV flushed thoroughly pre- and post- medicationadministration. Information reviewed with patient including reason for taking this medication, signs ofallergic reaction and precautions. Verbalizes understanding. --12:51 12/22/20 Bob Almonte R.NElizabeth12:58 07/07/20. BP: 120/58. MAP: 78. HR: 79. RR: 33. O2 saturation: 91%. --12:58 07/07/20 Bob Almonte R.N.13:28 07/07/20. BP: 112/52. MAP: 72. HR: 72. RR: 24. O2 saturation: 89%. --13:29 07/07/20 [facility]RE[facility] Fjnk674:35 07/07/20. Reassurance given. Reassessment acuity: LEVEL 3. The patient reports nocomplaints, he is calm and resting quietly and he has had no adverse reaction. Overall patient status isimproved- he states feels better.RESPIRATORY: No respiratory distress.CVS: Normal sinus rhythm noted.SKIN: Skin is warm and dry. Skin color within normal limits. Patient transported to [place] by stretcher withnav[facility] hospitaliology tech. Two patient identifiers checked. Call light placed in reach. Side rails up x 2. Bedplaced in lowest position. Brakes of bed on. --13:35 07/07/20 Bob Almonte R.NElizabeth13:44 07/07/2020 Started bag #1 1000 mL IV Fluids NS; at 100 mL/hr over 10 hour(s) via site #1 via IVpump. Allergies verified and confirmed 5 rights. IV patency established. IV site checked: no pain, redness,or swelling. IV flushed thoroughly pre- and post-medication administration. Information reviewed withpatient including reason for taking this medication, signs of allergic reaction and precautions. Verbalizesunderstanding. --13:44 07/07/20 So Bob bliss R.NElizabeth13:44 07/07/2020 Zosyn IVPB via IV site #1 Discontinued: bag #1 completed. Total amount infused: 50 mL.IV patency established. IV site checked: no pain, redness, or swelling. IV flushed thoroughly. --13: Bob Almonte R.NElizabeth14:00 07/07/20. BP: 126/114. MAP: 118. HR: 62. RR: 19. O2 saturation: 91%. --14:00 07/07/20 Lisa Nascimento ER [employer] 6 Clinical Report - Nurses [facility] Emergency Department [address] [place] [address] Phone #: ext- [phone] 07/07/2020 11:34 Patient: DIANA OLIVERA Sex: M : 1955 Age: 65y13:51 07/07/2020 Site #1 removed. Catheter intact. Bandage applied (patient pulled out). --14: Bob Almonte R.N.14:01 07/07/2020 Site #2 started via IV in the right forearm with an 20g angiocath; two attempts. Salinelock flushed with 10 mL saline. --14:01 07/07/20 Bob Almonte R.N.14:02 07/07/2020 Moved bag #2 IV Fluids NS to site # 2. --14:02 07/07/20 Bob Almonte R.N.14:25 07/07/20. BP: 105/59. MAP: 74. HR: 83. RR: 27. O2 saturation: 70% on non-rebreather at 15liters/minute. ED physician notified. Temp: 97.8 F. Pain level now: 0/10. Additional comments: 70's.--14:28 07/07/20 Bob Almonte R.N.14:20 07/07/20. Reassurance given. Reassessment acuity: LEVEL 3. Reassessment after oxygenadministered. He is calm and resting quietly. Overall patient status is improved- he states feels better. (unable to get accurate cardiac rhythm due to tremors. unable to get sats up with NRB @ 15 liters. venkatesh made aware. to call RT for vapo therm.). Two patient identifiers checked. Call light placed inreach. Side rails up x 2. Bed placed in lowest position. Brakes of bed on. Patient ready for evaluation-ED physician notified. --14:28 07/07/20 Bob Almonte R.N.14:31 07/07/20. BP: 112/60. MAP: 77. HR: 72. RR: 15. O2 saturation: 60%. --14:31 07/07/20 Grzegorz sougou [facility] Anpy484:35 07/07/20. ( no urine voided since lasix given.). --14:36 07/07/20 Bob Almonte R.N.14:59 07/07/20. BP: 105/60. MAP: 75. HR: 68. RR: 21. O2 saturation: 96%. --14:59 07/07/20 [facility] Lisa, Ynqb602:05 07/07/2020 Started 1200 mg of Vancomycin IVPB in bag #1 250 mL; at 167 mL/hr over 1.5 hour(s)via site #2. via IV pump. Allergies verified and confirmed 5 rights. IV patency established. IV site checked:no pain, redness, or swelling. IV flushed thoroughly pre- and post-medication administration. Informationreviewed with patient including reason for taking this medication, signs of allergic reaction and precautions.Verbalizes understanding. --15:05 07/07/20 Bob Almonte R.N.15:30 07/07/20. BP: 128/56. MAP: 80. HR: 77. RR: 16. O2 saturation: 100%. Pain level now: 0/10.Additional comments: vapo therm. --15:31 07/07/20 [place] Hopper [facility] Oxjt220:30 07/07/20. Reassurance given. Reassessment acuity: LEVEL 3. Reassessment after oxygenadministered. He reports no complaints, he is calm and resting quietly and he has had no adversereaction. Overall patient status is improved- he states feels better.RESPIRATORY: No respiratory distress. Two patient identifiers checked. Call light placed in reach.Side rails up x 2. Bed placed in lowest position. Brakes of bed on. --15:31 07/07/20 [place] HopperLisaRE[facility] Tech1 7 Clinical Report - Nurses [facility] Emergency Department [address] [place] [address] Phone #: ext- [phone] 07/07/2020 11:34 Patient: DIANA OLIVERA Sex: M : 1955 Age: 65y 16:04 07/07/20. BP: 110/61. MAP: 77. HR: 69. RR: 16. O2 saturation: 100%. --16:04 07/07/20 Grzegorz laborer headingLisa Solis ER Tech1 16:23 07/07/2020 IV Fluids NS via IV site #2 Discontinued: bag #1 infused upon admission. Total amount infused: 200 mL. IV patency established. IV site checked: no pain, redness, or swelling. IV flushed thoroughly. --16:48 07/07/20 Bob Almonte, R.NElizabeth 16:33 07/07/2020 Vancomycin IVPB via IV site #2 Discontinued: bag #1 completed upon admission. Total amount infused: 250 mL. IV patency established. IV site checked: no pain, redness, or swelling. IV flushed thoroughly. --16:48 07/07/20 Bob Almonte, R.N.DISPOSITION / DISCHARGE 16:22 07/07/2020 Site #[address] upon admission; patent, no pain and no signs of infection or infiltration. Good blood return present. Flushed with 10 mL saline; flushes easily. --16:47 07/07/20 Bob Almonte, R.N. 16:22 07/07/20. Departure time: 16:35 07/07/2020. Condition at departure: improved and stable. The goals identified in the patient's plan of care were met. Fall risk assessment completed. Risk factors identified include patient age greater than 65 years and impairment of mobility. Admitted to the Acute Inpatient Unit. Transported via stretcher by nurse and respiratory therapist with monitor, O2 and mask. Report was given to a nurse via a phone call and visit overview and in person. Report included information regarding patient's treatment and allergies, current vital signs and critical, abnormal or pending labs. Report included treatment information regarding medications given or pending; type and amount of IV fluids total volume infused. All questions were answered. Report was acknowledged and care was transferred. (tyler). Bed obtained and ready (117). --16:50 07/07/20 Bob Almonte R.N. 16:30 07/07/20. BP: 115/51. MAP: 72. HR: 74. RR: 24. O2 saturation: 94%. Temp: 98.3 F. Pain level now: 0/10. Additional comments: vapo therm 60%. --16:50 07/07/20 Bob Almonte R.N.Locked/Released at 07/07/2020 17:31 by Bob Almonte R.N. Name Value Range Interpretation Code Description Data Sanjuana rce(s) Supporting Document(s) ID Date Data Source [id number] 07/07/2020 11:35:00 AM EST [facility] 1 Clinical Report - Physicians/Mid Levels [facility] Emergency Department [address] [place] [address] Phone #: ext- [phone] 07/07/2020 11:34 [id number] Sex: M : 1955 Age: 65y Time Seen: 11:38 07/07/2020; initial patient contact. Arrived- By ambulance. Historian- patient, EMS personnel and senior living nurse and records. Disposition decision: 14:39 07/07/2020.HISTORY OF PRESENT ILLNESS Chief Complaint: DYSPNEA and HISTORY OF CHRONIC OBSTRUCTIVE PULMONARY DISEASE and Hypoxia. This started just prior to arrival today and is still present. The dyspnea is described as mild and is described as moderate. The patient has had a mild dry cough. No sputum production, fever, wheezing or chills. No chest pain or discomfort, calf pain or foot swelling. He has experienced mild sweating episodes. (BS 235 per EMS). Similar symptoms previously. Patient has had similar symptoms many times. ( has COPD, has Hx PNA). Recent medical care: Not recently seen/assessed.REVIEW OF SYSTEMS The patient has not had weight loss. No muscle aches, eye irritation, sore throat, nasal discharge or sinus drainage. No nausea, vomiting, abdominal pain, diarrhea or black stools. No bloody stools, headache, fainting episodes, blurred vision or difficulty with urination. No excessive urination, skin rash, enlarged lymph nodes or joint pain. All other systems reviewed and are negative.PAST HISTORY See nurses notes. Emphysema. Problems: COPD - Chronic Obstructive Pulmonary Disease. Hyperglycemia. Hypercholesterolemia. Heart Disease. Hypertension. Low testosterone. Hypomagnesemia. Hyperthyroidism. Degenerative hip disease. Cellulitis. Atrial Fibrillation. Degenerative Joint Disease. Glaucoma. Diabetes Mellitus. 2 Clinical Report - Physicians/Mid Levels [facility] Emergency Department [address] [place] [address] Phone #: ext- [phone] 07/07/2020 11:34 [id number] Sex: M : 1955 Age: 65yDehydration.Muscle Strain, Upper Extremity.Sepsis (disorder).Seizure.Rotator cuff syndrome.Sleep Apnea.UTI - Urinary Tract Infection.Ulcers on toes and legs.Tremor.Osteoarthritis of Finger Joint.Neurological Disease.Narcotic Dependence.Osteomyelitis.Renal Insufficiency.Pneumonia.Additional Surgeries:Amputation Lower Extremity. (Left Great toe)C6 Corpectomy and Fusion c5-c6 w/ fibular strut graft .Cardiac catherization.Melanoma removal 1998.Rotator Cuff Surgery.Stent placement 2016.Medications:HumuLIN N Subcutaneous (Suspension 100 unit/mL) 72 units dinner, daily every PM.HumuLIN N Subcutaneous 66 units, daily every AM.Lisinopril Oral (Tablet 5 mg) 1 tablet, daily.MetFORMIN HCl Oral (Tablet 1000 mg) 1 tablet, 2x a day.Metoprolol Tartrate Oral (Tablet 25 mg) 1 tablet, 2x a day.Niacin Oral (Tablet 500 mg) 2 tablets, daily.OxyCODONE HCl Oral 10 mg, q6h as needed, pain.Pravachol Oral (Tablet 20 mg) 1 tablet, daily at bedtime.Travatan Z Ophthalmic (Solution 0.004 %) 1 drop, in each eye daily.Vitamin, daily.Aspirin Oral (Tablet Delayed Release 81 mg) 1 tablet, 2x a day.Blast anti microbial wound gel.DULoxetine HCl Oral (Capsule Delayed Release Particles 60 mg) 1 capsule, daily.FentaNYL Transdermal (Patch 72 Hour 50 mcg/hr) 1 patch, q3days.Fish Oil Oral 1200 mg, daily every AM.Gabapentin Oral (Tablet 800 mg), 4x a day.GlipiZIDE XL Oral (Tablet Extended Release 24 Hour 10 mg) 1 tablet, daily, last dose 01/15.Allergies:TAPE. 3 Clinical Report - Physicians/Mid Levels [facility] Emergency Department [address] [place] [address] Phone #: ext- [phone] 07/07/2020 11:34 Patient: DIANA OLIVERA Sex: M : 1955 Age: 65ySOCIAL HISTORY Former smoker, end date 12/2019. No alcohol use or drug use. No recent travel. Resides in a senior living.ADDITIONAL NOTES The nursing notes have been reviewed with agreement regarding the chief complaint, HPI, ROS, PMH and patient medications and allergies.PHYSICAL EXAM Vital Signs: 07/07/2020 11:47 O2 saturation: 93% on nasal cannula at 2 liters/minute. 07/07/2020 11:36 BP: 106/60. MAP: 75. HR: 74. RR: 24. O2 sa turation: 93% on non-rebreather at 15 liters/minute. Temp: 99.6 F. Pain level now: 0/10. Have been reviewed. Oxygen saturation low. Appearance: Alert. No acute distress. Eyes: Pupils equal, round and reactive to light. Eyes normal inspection. ENT: Ears normal. Nose normal. Pharynx normal. Uvula midline. Neck: Normal inspection. No jugular venous distention. Neck supple. CVS: Normal heart rate and rhythm. Heart sounds normal. Pulses normal. Respiratory: No respiratory distress. Mildly decreased air movement in the bases bilaterally. Painless inspiration. Mild bilateral rhonchi present in the bases. Mild crackles present diffusely in both lungs. Abdomen: Soft and nontender. No organomegaly. Back: Normal inspection. Skin: Skin warm and dry. Normal skin color. No rash. Normal skin turgor. Extremities: No lower extremity edema. (pt wearing b/l foot pads, s/p post-op feet surgery). Neuro: Oriented X 3. No motor deficit. No sensory deficit.LABS, X-RAYS, AND EKG EKG: No acute process. No acute ischemia. Normal EKG. Normal sinus rhythm. Rate: 74/min. First-degree atrioventricular block. Incomplete RBBB. Left axis deviation. EKG unchanged when compared with prior EKG. (04-01-20). The study has been interpreted contemporaneously by me. The EKG appears to be a good tracing. Interpretation time: 11:41 07/07/2020. Chest X- ray: Infiltrate in the right lung and left lung (severe b/l infiltrates, CHF vs. PNA). Consistent with pneumonia. Views: AP (portable). The X-rays were interpreted by the radiologist. Interpretation time: 12:26 07/07/2020. Chest CT: (see report; severe diffuse b/l infiltrates suspicious for Covid). Chest CT performed without contrast. The study was interpreted by the radiologist. Interpretation time: 13:56 07/07/2020. Laboratory Tests: Laboratory tests have been ordered, with results reviewed and considered in the medical decision making process. ABG: (ILEANA: 07/07/2020 15:00) ( MsgRcvd 07/07/2020 15:20) Final results Test Result Flag Units (Reference) pH 7.36 (7.34 - 7.44) pCO2 47.5 H mm/HG (35.0 - 45.0) pO2 82.4 mm/HG (75.0 - 100) HCO3 26.5 H meq/L (22.0 - 26.0) TCO2 27.9 H meq/L (23.0 - 27.0) BASE EXCESS 0.7 (-2.0 - 2.0) 4 Clinical Report - Physicians/Mid Levels [facility] Emergency Department [address] [place] [address] Phone #: ext- [phone] 07/07/2020 11:34 Patient: DIANA OLIVERA Sex: M : 1955 Age: 65y O2 SAT 95.6 % (95.0 - 98.0)ABG: (ILEANA: 07/07/2020 15:09) ( MsgRcvd 07/07/2020 15:10) CanceledCT Chest W/O Cont: (ILEANA: 07/07/2020 12:37) ( MsgRcvd 07/07/2020 14:44) In ProgressCT THORAX W/O CONTRASTReason(s): COPDTRANSPORTATION: S IV? O2? Oxygen?(Yes) Room: E Exam CT THORAX W/[place] [address] PHONE: [phone] FAX: [phone] Name .................. : JAROD Ross Acct Number.................. : [id number] ROOM. ................. : TR-06 MR Number ................... : [id number] Stay type ............. : E/R Discharge Date......... ... : Admit Date ......... : 07/07/20 Admit Phys .................... : TURRIN ROSENDO Date of ....... : 1955 Family Phys ................... : ADY Phone .................. : [phone] Age ................................ : 65 Film# .................. .:[id number] Sex ................................. : M Unsigned transcriptions are preliminary reports and do not represent a medical or legal document CT THORAX W/O CONTRAST [id number] COMPLETE:07/07/20 13:56 BEM 722 Reason(s): COPD Cough Fever Shortness of Breath CT SCAN OF THE CHEST WITHOUT IV CONTRAST, 07/07/20: INDICATION: COPD. Comparison is made to a previous examination from 12/28/2019. FINDINGS: Visualized portions of the thoracic inlet appear unremarkable. There are multiple nodes identified in the mediastinum with the largest measuring approximately 1.7 cm. Previously this measured 1.1 cm. AP window nodes are identified, largest measuring approximately 9 mm. No enlarged axillary lymph nodes are identified. Atherosclerotic disease is identified in the aorta. There is an infracarinal node measuring approximately 2.2 cm. Previously this measured approximately 1.3 cm. Atherosclerotic disease is identified in the aorta and coronary arteries. Heart appears unremarkable. There is a small left side pleural effusion. Extensive bilateral infiltrates are identified diffusely in the lung fatima, left greater than right. Underlying COVID pneumonia is not excluded. IMPRESSION: Lymph nodes identified in the mediastinum increased in size as compared to the previous study. Bilateral diffuse infiltrates are identified, raising suspicion for COVID pneumonia. Small left pleural effusion. While performing the above CT examination, radiation dose reduction was accomplished utilizing automated exposure control, adjusting of the mA and kV based on the patient's body size and/or the use of imperative reconstructive techniques. CT dose 769.4 mGycm. 5 Clinical Report - Physicians/Mid Levels [facility] Emergency Department [address] [place], [place] [id number] Phone #: ext- [phone] 07/07/2020 11:34 Patient: DIANA OLIVERA Sex: M : 1955 Age: 65y Examination dictated by PRAFUL Griffin. Examination was reviewed with Tiffany Bergeron MD, radiologist at the time of this dictation. Page 1 of 2 [place] [address] PHONE: [phone] FAX: [phone] Name .................. : JAROD Ross Acct Number.................. : [id number] ROOM. ................. : TR-06 MR Number ................... : [id number] Stay type ............. : E/R Discharge Date......... ... : Admit Date ......... : 07/07/20 Admit Phys .................... : MIRIAM ACUNA Date of ....... : 1955 Family Phys ...... ............. : ADY Phone .................. : [phone] Age ................................ : 65 Film# .................. .:[id number] Sex ................................. : M Unsigned transcriptions are preliminary reports and do not represent a medical or legal document CT THORAX W/O CONTRAST [id number] COMPLETE:07/07/20 13:56 BEM 722 Reason(s): COPD Cough Fever Shortness of Breath Electronically Reviewed and Signed By DCTNAME , SIGNDATE, KGG Transcribe Initials: SSR, Transcribe Date: 07/07/20 14:43, Dictation Date: <<REPDIST>> Page 2 of 2COVID-19 CAH: (ILEANA: 07/07/2020 11:45) ( MsgRcvd 07/07/2020 12:47) Final results Test Result Flag Units (Reference) COVID-19 NOT DETECTED COVID-19 REENTER NOT DETECTED { PROCEDURAL CONTROL VALID KIT LOT # _[id number] 07/07/20.1247.MD . KIT EXP DATE _10.22.20 07/07/20.1247. . NORMAL RANGE IS NOT DETECTEDNEGATIVE RESULTS SHOULD BE TREATEDAS PREUMPTIVE AND, IF INCONSISTENT WITHCLINICAL SIGNS AND SYMPTOMS OR NECESSARY FOR PATIENT MANAGEMENT, SHOULDBETESTED WITH DIFFERENT AUTHORIZED OR CLEARED MOLECULAR TESTS. NEGATIVE RESULTSDO NOT PRECLUDE [id number] AND SHOULD NOT BE USED THE SOLE BASISFOR PATIENT MANAGEMENT DECISIONS.Influenza Nasal A B: (ILEANA: 07/07/2020 11:45) ( MsgRcvd 07/07/2020 12:48) Final results Test Result Flag Units (Reference) INFLUENZA A NEGATIVE (NORMAL: NEGAT INFLUENZA B NEGATIVE (NORMAL: NEGAT INFLUENZA A REENTER NEGATIVE (NORMAL: NEGAT 6 Clinical Report - Physicians/Mid Levels [facility] Emergency Department [address] [place] [address] Phone #: ext- [phone] 07/07/2020 11:34 Patient: DIANA OLIVERA Sex: M : 1955 Age: 65y INFLUENZA B REENTER NEGATIVE (NORMAL: NEGAT PROCEDURAL CONTROL VALID KIT LOT # _[id number] 07/07/20.124Ying. . KIT EXP DATE _10.06.20 07/07/20.Ying. .The Influenza A utilizing an isothermal nucleic acid amplification technology for thequalitativedetection of influenza A and B viral RNA.Negative results do not preclude influenza virus infection and shouldnot beused as the sole basis for diagnosis, treatment or other patient managementdecisions.CBC w Diff: (ILEANA: 07/07/2020 11:45) ( MsgRcvd 07/07/2020 12:40) Final results Test Result Flag Units (Reference) CBC W/AUTOMATED DIFF COMPLETE BLOOD COUNT WBC 19.9 H 10/uL (4.2 - 11.0) RBC 4.54 10/uL (4.50 - 6.30) HEMOGLOBIN 11.1 L g/dL (14.0 - 16.0) HEMATOCRIT 36.7 L % (41.0 - 51.0) MCV 80.8 fL (80.0 - 94.0) MCH 24.4 L pg (27.0 - 34.0) MCHC 30.2 L g/dL (31.0 - 36.0) RDW 16.6 H % (11.5 - 14.8) PLATELETS 484 H 10/uL (150 - 450) MPV 9.5 fL (7.4 - 10.4) NEUT 86.9 H % (37.0 - 80.0) LYMPH 5.6 L % (25.0 - 40.0) MONO 6.0 % (3.0 - 8.0) EOS 0.1 % (0.0 - 7.0) BASO 0.3 % (0.0 - 2.0) %IG 1.1 H % (0.0 - 0.0) %NRBC 0.0 % (0.0 - 0.0) #NEUT 17.31 H 10/uL (2.00 - 6.90) #LYMPH 1.11 10/uL (0.60 - 3.40) #MONO 1.19 H 10/uL (0.00 - 0.90) #EOS 0.01 10/uL (0.00 - 0.70) #BASO 0.05 10/uL (0.00 - 0.20) #IG 0.21 H 10/uL (0.00 - 0.10) #NRBC 0.00 10/uL (0.00 - 0.00) MANUAL DIFF SEE BELOW SEGS 89 H % (37 - 80) BAND 0 % (0 - 5) %LYMPH 5 L % (25 - 40) %MONO 6 % (3 - 8) %EOS 0 % (0 - 7) %BASO 0 % (0 - 2) RBC MORPH NOT INDICATEDCMP: (ILEANA: 07/07/2020 11:45) ( MsgRcvd 07/07/2020 13:12) Final results Test Result Flag Units (Reference) COMPREHENSIVE METABOLIC PANEL COMPREHENSIVE METABOLIC PANEL SODIUM 138 mEq/L (134 - 153) POTASSIUM 5.5 H mEq/L (3.6 - 5.0) CHLORIDE 97 L mEq/L (98 - 107) CO2 30 MEQ/L (22 - 30) GLUCOSE 181 H MG/DL (65 - 110) BUN 57 H MG/DL (7 - 21) CREATININE 2.3 H MG/DL (0.7 - 1.5) BU N/CREAT 25 (8 - 27) TOTAL PROTEIN 6.8 G/DL (6.3 - 8.2) 7 Clinical Report - Physicians/Mid Levels [facility] Emergency Department [address] [place] [address] Phone #: ext- [phone] 07/07/2020 11:34 Patient: DIANA OLIVERA Sex: M : 1955 Age: 65y ALBUMIN 2.8 L G/DL (3.9 - 5.0) GLOBULIN 4.0 H GM/DL (2.4 - 3.2) A/G RATIO 0.7 L (0.8 - 2.0) CALCIUM 8.6 MG/DL (8.4 - 10.2) TOTAL BILI <0.7 MG/DL (0.2 - 1.3) ALKALINE PHOS 81 U/L (38 - 126) SGOT/AST 2791 H U/L (5 - 40) SGPT/ALT 2163 H U/L (7 - 56) ANION GAP 11.0 mmol/L (8.0 - 16.0) AGE 65 yrs NON-AA GFR 30 mL/min AFR AMER GFR 37 mL/min Male GFR Interprentation 20-49 yrs >60 mL/min Yfkwsx09-25 yrs >56 mL/min Normal 60-69 yrs >49 mL/min Normal 70-79yrs>42 mL/min Normal 80 and above >35 mL/min Normal Female GFRInterpretation 20-39 yrs >60 mL/min Normal 40-49 yrs >58 mL/minNormal 50-59 yrs >51 mL/min Normal 60-69 yrs >45 mL/min Cdcafe02-70 yrs >39 mL/min Normal 80 and above >32 mL/min NormalLipase: (ILEANA: 07/07/2020 11:45) ( MsgRcvd 07/07/2020 12:51) Final results Test Result Flag Units (Reference) LIPASE 12 L U/L (13 - 60)PT/PTT: (ILEANA: 07/07/2020 11:45) ( MsgRcvd 07/07/2020 13:12) Final results Test Result Flag Units (Reference) PROTIME 22.0 H SECONDS (11.0 - 15.5) INR 1.82 H (0.93 - 1.23) PTT 48.1 H SECONDS (24.8 - 36.7) \\BLDo\\INR INTERPRETATION\\BLDx\\ Therapeutic range for Coumadin andrelated oral anticoagulants. -International Normalized Ratio (INR): 2.0 - 3.0 for VenousThrombosis, Pulmonary Embolus, Tissue heart valves, Acute GA Atrial Fibrillation, Valvular heart diseaseand recurrent Systemic Embolism. -International Normalized Ratio (INR): 2.5 - 3.5 forMechanical Prosthetic valve.Troponin-T: (ILEANA: 07/07/2020 11:45) ( [facility] 07/07/2020 12:41) Final results Test Result Flag Units (Reference) TROPONIN T 0.07 NG/ML (0.00 - 0.10) TROPONIN T0.1 ng/ml Recommended as the clinical threshold value forTroponin T.BNP: (ILEANA: 07/07/2020 11:45) ( [facility] 07/07/2020 12:51) Final results Test Result Flag Units (Reference) BNP 6319 H PG/ML (0 - 125)Magnesium: (ILEANA: 07/07/2020 11:45) ( [facility] 07/07/2020 12:51) Final results Test Result Flag Units (Reference) MAGNESIUM 2.4 H MG/DL (1.7 - 2.2)Lactic Acid: (ILEANA: 07/07/2020 11:45) ( [facility] 07/07/2020 13:49) Final results Test Result Flag Units (Reference) LACTIC ACID 2.4 H MMOL/L (0.2 - 2.2)Venous Blood Gas: (ILEANA: 07/07/2020 11:45) ( [facility] 07/07/2020 13:49) Final results 8 Clinical Report - Physicians/Mid Levels [facility] Emergency Department [address] [place] [address] Phone #: ext- [phone] 07/07/2020 11:34 [id number] Sex: M : 1955 Age: 65y Test Result Flag Units (Reference) pH V 7.29 L (7.32 - 7.43) pCO2 V 60.4 H mm/HG (38.0 - 51.0) pO2 V 24.7 L mm/HG (30.0 - 55.0) HCO3 V 28.4 meq/L (22.0 - 29.0) TCO2 V 30.3 H meq/L (22.0 - 29.0) BASE EXCESS 0.9 (-2.0 - 2.0) O2 SAT V 36.5 L % (40.0 - 85.0)Urinalysis: (ILEANA: 07/07/2020 12:25) ( [facility] 07/07/2020 12:42) Final results Test Result Flag Units (Reference) URINALYSIS URINALYSIS SOURCE R COLOR yellow (NORMAL: Yello CLARITY clear (NORMAL: Clear SPEC GRAVITY 1.025 (1.001 - 1.030 pH 5 (5 - 9) GLUCOSE NORM (NORMAL: Negat BILIRUBIN NEG (NORMAL: Negat KETONE NEG (NORMAL: Negat PROTEIN 100 A (NORMAL: Negat NITRITE NEG (NORMAL: Negat BLOOD NEG (NORMAL: Negat LEUK EST NEG (NORMAL: Negat UROBILINOGEN 1 (less than 1.0 MICROSCOPIC See Below EPITHELIAL FEW (NORMAL: NONE BACTERIA Trace (NORMAL: NONEChest Portable 1 View: (ILEANA: 07/07/2020 11:47) ( [facility] 07/07/2020 13:32) In ProgressCHEST PORTABLEReason(s): COPDTRANSPORTATION: P IV? O2? Oxygen?(Yes) Room: E Exam CHEST PORTABLE [place] [address] [place] [address] PHONE: [phone] FAX: [phone] Name .................. : JAROD DIANA Ross Acct Number.................. : [id number] ROOM. ................. : TR-06 MR Number ................... : [id number] Stay type ............. : E/R Discharge Date......... ... : Admit Date ......... : 07/07/20 Admit Phys .................... : MIRIAM ACUNA Date of ....... : 1955 Family Phys ................... : [employer] Phone .................. : [phone] Age ................................ : 65 Film# .................. .:[id number] Sex ............ ..................... : M Unsigned transcriptions are preliminary reports and do not represent a medical or legal document CHEST PORTABLE [id number] COMPLETE:07/07/20 13:02 BE 719 Reason(s): COPD Shortness of Breath PORTABLE CHEST, 07/07/20: 9 Clinical Report - Physicians/Mid Levels [facility] Emergency Department [address] [place] [address] Phone #: ext- [phone] 07/07/2020 11:34 [id number] Sex: M : 1955 Age: 65y INDICATION: COPD. Comparison is made to a previous study from 04/01/2020. FINDINGS: Examination reveals near complete opacification of the bilateral lung fatima, left worse than right. Findings are worrisome for CHF versus pneumonia. Cardiac silhouette is enlarged. IMPRESSION: Bilateral infiltrates. CHF versus pneumonia. Examination dictated by PRAFUL Griffin. Examination was reviewed with Tiffany Bergeron MD, radiologist at the time of this dictation. Electronically Reviewed and Signed By DCTNAME , SIGNDATE, KGG Transcribe Initials: SSR, Transcribe Date: 07/07/20 13:28, Dictation Date: <<REPDIST>> Page 1 of 1.PROGRESS AND PROCEDURES Course of Care: 13:31 07/07/20. workup all in and reviewed, WBC high w shift, high BNP, high AST/ALT, high BUN/Creat/K compared to 07-02-20, probably from CHF, rt heart failure, dehydration; pt treated w NTG paste and lasix once and Zosyn IV and mild fluids; pt off to CT chest; pt was doing better, O2 sat improved 14:32 07/07/20. CT chest results in and reviewed, severe diffuse b/l infiltrates suspicious for Covid; rapid Covid test is negative; will add PCR sent out test; will add high flow O2 w Vapotherm because of intermittent desaturation; case discussed w Wendi Cali, MARKET[employer] FINANCE MANAGER hospitalist, who will admit 15:13 07/07/20. The RT noticed that Oxygen was turned off on the wall, after turning it on, pt is saturating well w/o the Vapotherm; Medicine saw him in the ER. Critical care performed (90 minutes). Time is exclusive of separately billable procedures. Time includes: direct patient care, patient reassessment, coordination of patient care, interpretation of data (laboratory data and chest xrays), medical consultation and documentation of patient care- see progress notes. Patient and spouse counseled in person regarding the patient's critical condition, test results, diagnosis and need for admission. Patient and spouse agrees with plan of care. 10 Clinical Report - Physicians/Mid Levels [facility] Emergency Department [address] [place] [address] Phone #: ext- [phone] 07/07/2020 11:34 Patient: DIANA OLIVERA Sex: M : 1955 Age: 65y Disposition: Condition: serious and critical. Admit decision based on need for further evaluation, monitoring, telemetry, IV therapy, hydration, antibiotics and medications and stabilization of condition.CLINICAL IMPRESSION Acute dyspnea. Chronic moderate systolic, left ventricular congestive heart failure. Acute respiratory failure with hypoxemia. Lobar pneumonia with hypoxemia, respiratory failure and sepsis. (Severe, B/L, R/O Covid). Rule Out Covid Acute Transaminitis.(Electronically signed by Rigo Ge M.D. 07/07/2020 17:06) Name Value Range Interpretation Code Description Data Sanjuana e(s) Supporting Document(s) ID Date Data Source [id number] 07/07/2020 11:35:00 AM [facility] Addenda for DIANA OLIVERA VisitID: [id number] Date: 12:57Jaylon Cunningham made aware of med rec request.(Electronically signed by Prem Sam - 07/07/2020 12:57)07/07/2020 15:34T-SYSTEM overview sent to U with U charge nurse.(Electronically signed by Prem Sam - 07/07/2020 15:34) Name Value Range Interpretation Code Description Data Sanjuana rce(s) Supporting Document(s) ID Date Data Source [id number] 07/07/2020 03:20:00 PM [facility] Name Value Range Interpretation Code Description Data Sanjuana rce(s) Supporting Document(s) pH of Arterial blood 7.36 7.34 - 7.44 [facility] Carbon dioxide [Partial pressure] in Blood 47.5 mm/HG 35.0 - 45.0 H [facility] Oxygen [Partial pressure] in Blood 82.4 mm/HG 75.0 - 100 [facility] Bicarbonate [Moles/volume] in Blood 26.5 meq/L 22.0 - 26.0 H [facility] TCO2 27.9 meq/L 23.0 - 27.0 H [facility] Base excess in Blood by calculation 0.7 -2.0 - 2.0 [facility] O2 SAT 95.6 % 95.0 - 98.0 [facility] ID Date Data Source [id number] 07/10/2020 05:35:00 PM EST [facility] Name Value Range Interpretation Code Description Data Sanjuana rce(s) Supporting Document(s) SARS-CoV-2, DOMINICK Not Detected Not Detected [facility] This nucleic acid amplification test was developed and its performancecharacteristics determined by [employer] (acquired by [employer]). Nucleic acidamplification tests include PCR and TMA. This test has not been FDAcleared or approved. This test has been authorized by FDA under anEmergency Use Authorization (EUA). This test is only authorized forthe duration of time the declaration that circumstances existjustifying the authorization of the emergency use of in vitrodiagnostic tests for detection of SARS-CoV-2 virus and/or diagnosisof COVID-19 infection under section 564(b)(1) of the Act, 21 U.S.C.360bbb-3(b) (1), unless the authorization is terminated or revokedsooner.When diagnostic testing is negative, the possibility of a falsenegative result should be considered in the context of a patient'srecent exposures and the presence of clinical signs and symptomsconsistent with COVID- 19. An individual without symptoms of COVID-19and who is not shedding SARS-CoV-2 virus would expect to have anegative (not detected) result in this assay. ID Date Data Source [id number] 07/07/2020 02:35:00 PM EST [facility] Name Value Range Interpretation Code Description Data Sanjuana rce(s) Supporting Document(s) SARS coronavirus 2 [facility] This lab was ordered by [facility] and reported by [facility]. ID Date Data Source [id number] 07/07/2020 12:41:00 PM [facility] Value Range Interpretation Code Description Data Sanjuana rce(s) Supporting Document(s) [facility] S[facility] R [facility] COLOR yellow NORMAL: Yellow [facility] CLARITY clear NORMAL: Clear [facility] Specific gravity of Urine by Test strip 1.025 1.001 - 1.030 [facility] pH 5 5 - 9 [facility] al Glucose [Mass/volume] in Urine by Test strip NORM NORMAL: Negat [facility] Bilirubin.total [Presence] in Urine by Test strip NEG NORMAL: Negative [facility] Ketones [Presence] in Urine by Test strip NEG NORMAL: Negative [facility] Protein [Mass/volume] in Urine by Test strip 100 NORMAL: Negat [facility] A [facility] Nitrite [Presence] in Urine by Test strip NEG NORMAL: Negative [facility] BLOOD NEG NORMAL: Negative [facility] Leukocyte esterase [Presence] in Urine by Test strip NEG SUSAN L: Negative [facility] Urobilinogen [Mass/volume] in Urine by Test strip 1 less ben n 1.0 mg/dL [facility] MICROSCOPIC See Below [facility] ital EPITHELIAL FEW NORMAL: NONE SEEN [facility] Bacteria [Presence] in Urine sediment by Light microscopy Tr ilia NORMAL: NONE SEEN [facility] ID Date Data Source [id number] 07/12/2020 09:24:00 AM [facility] Value Range Interpretation Code Description Data Sanjuana rce(s) Supporting Document(s) CULTURE BLOOD [facility] _CULTURE BLOOD_ [place] [address] CLIA# [id number] SEE SCANNED REPORT{ PRELIM ID Date Data Source [id number] 07/12/2020 09:24:00 AM [facility] Value Range Interpretation Code Description Data Sanjuana rce(s) Supporting Document(s) CULTURE BLOOD [facility] _CULTURE BLOOD_ TEST PERFORM ED AT [facility] [address] [place] [address] [facility]# [id number] SEE SCANNED REPORT{ PRELIM POS IN AEROBIC G+ COCCI IN [facility] CALLED TO HANNAH 0421 07-09-2020 ID Date Data Source [id number] 07/09/2020 04:22:00 AM [facility] ANAEROBIC [id number] TO CORNELIUS ([facility]) AT 0415 BY [facility].The Film[employer] BCID Panel is a qualitative multiplexednucleic acid-based test - PCRNormal results for each test is "Not detected"The BCID panel detects KPC,mecA,Hattie/Bresistance,enterococcus,L.monocytogenes,Staphlococcus,S.aureus,St reptococcus,GRP B, GRP A, S.pneumoniae,A.baumanii,Enterobacteriaceae,E.cloacae complex,E.coli,K.oxyt oca,K.pneumoniae,Proteus,S.marcescens,H.influenzae,N.meningitidis,P.aeruginosa,C . albicans,C.glabrata ,C.krusei,C.parapsilosis,C.tropicalisTraditional Culture ID and Sensitivities will still beperformed on all positive blood cultures.The [employer] BCID panel may not distinguish mixed cultureswhen two or more species of the same genus or organism groupare present in a specimen.This test is a qualitative test and does not provide aquantitative value for the organism(s)in the sample.Antimicrobial resistance can occur via multiple mechanisms.A Not detected result for the FilmArray antimicrobialresistance gene assays does not indicate antimicrobialsusceptibility. Subculturing and standard susceptibilitytesting of isolates is requried to determine antimicrobialsusceptibility.Results from this test must be correlated with the clinicalhistory, epidemiological data,and otherdata available to theclinician evaluating the patient.SARS-CoV-2 RNA Resp Ql DOMINICK+probe Name Value Range Interpretation Code Description Data Sanjuana rce(s) Supporting Document(s) ID Date Data Source [id number] 07/07/2020 01:49:00 PM [facility] Name Value Range Interpretation Code Description Data Sanjuana rce(s) Supporting Document(s) pH of Serum or Plasma 7.29 7.32 - 7.43 L [facility] pCO2 V 60.4 mm/HG 38.0 - 51.0 H [facility] pO2 V 24.7 mm/HG 30.0 - 55.0 L [facility] Bicarbonate [Moles/volume] in Venous blood 28.4 meq/L 22.0 - 29.0 [facility] TCO2 V 30.3 meq/L 22.0 - 29.0 H [facility] Base excess in Blood by calculation 0.9 -2.0 - 2.0 [facility] O2 SAT V 36.5 % 40.0 - 85.0 L [facility] ital ID Date Data Source [id number] 07/07/2020 01:49:00 PM [facility] Name Value Range Interpretation Code Description Data Sanjuana rce(s) Supporting Document(s) Lactate [Moles/volume] in Serum or Plasma 2.4 MMOL/L 0.2 - 2.2 H [facility] ID Date Data Source [id number] 07/07/2020 01:12:00 PM [facility] Name Value Range Interpretation Code Description Data Sanjuana rce(s) Supporting Document(s) Prothrombin time (PT) 22.0 SECONDS 11.0 - 15.5 H [facility] INR in Platelet poor plasma by Coagulation assay 1.82 0.93 - 1. 23 H [facility] aPTT in Blood by Coagulation assay 48.1 SECONDS 24.8 - 36.7 H [facility] \\BLDo\\INR INTERPRETATION\\BLDx\\ Therapeutic range for Coumadin and related oral anticoagulants. - International Normalized Ratio (INR): 2.0 - 3.0 for Venous Thrombosis, Pulmonary Embolus, Tissue heart valves, Acute GA Atrial Fibrillation, Valvular heart disease and recurrent Systemic Embolism. - International Normalized Ratio (INR): 2.5 - 3.5 for Mechanical Prosthetic valve. ID Date Data Source [id number] 07/07/2020 01:12:00 PM [facility] Name Value Range Interpretation Code Description Data Sanjuana rce(s) Supporting Document(s) COMPREHENSIVE METABOLIC PANEL [facility] COMPREHENSIVE METABOLIC PANEL Sodium [Moles/volume] in Serum or Plasma 138 mEq/L 134 - 153 [facility] Potassium [Moles/volume] in Serum or Plasma 5.5 mEq/L 3.6 - 5.0 H [facility] Chloride [Moles/volume] in Serum or Plasma 97 mEq/L 98 - 107 L [facility] Carbon dioxide, total [Moles/volume] in Serum or Plasma 30 MEQ/L 22 - 30 [facility] Glucose [Mass/volume] in Serum or Plasma 181 MG/DL 65 - 110 H [facility] BUN 57 MG/DL 7 - 21 H [facility] al Creatinine [Mass/volume] in Serum or Plasma 2.3 MG/DL 0.7 - 1.5 H [facility] BUN/CREAT 25 8 - 27 [facility] Protein [Mass/volume] in Serum or Plasma 6.8 G/DL 6.3 - 8.2 [facility] Albumin [Mass/volume] in Serum or Plasma 2.8 G/DL 3.9 - 5.0 L [facility] Globulin [Mass/volume] in Serum by calculation 4.0 GM/DL 2.4 - 3.2 H [facility] A/G RATIO 0.7 0.8 - 2.0 L [facility] Calcium [Mass/volume] in Serum or Plasma 8.6 MG/DL 8.4 - 10.2 [facility] Bilirubin.total [Mass/volume] in Serum or Plasma <0.7 MG/DL 0.2 - 1.3 [facility] Alkaline phosphatase [Enzymatic activity/volume] in Serum or Plasma 81 U/L 38 - 126 [facility] Aspartate aminotransferase [Enzymatic activity/volume] in Serum or Plasma 2791 U/L 5 - 40 H [facility] Alanine aminotransferase [Enzymatic activity/volume] i n Serum or Plasma 2163 U/L 7 - 56 H [facility] Anion gap 3 in Serum or Plasma 11.0 mmol/L 8.0 - 16.0 [facility] AGE 65 yrs [facility] mL/min [facility] AFR AMER GFR 37 mL/min [facility] Male GFR In terprentation 20-49 yrs >60 mL/min Normal 50-59 yrs >56 mL/min Normal 60-69 yrs >49 mL/min Normal 70-79yrs >42 mL/min Normal 80 and above >35 mL/min Normal Female GFR Interpretation 20-39 yrs >60 mL/min Normal 40-49 yrs >58 mL/min Normal 50-59 yrs >51 mL/min Normal 60-69 yrs >45 mL/min Normal 70-79 yrs >39 mL/min Normal 80 and above >32 mL/min Normal ID Date Data Source [id number] 07/07/2020 12:51:00 PM [facility] Name Value Range Interpretation Code Description Data Sanjuana rce(s) Supporting Document(s) Magnesium [Mass/volume] in Serum or Plasma 2.4 MG/DL 1.7 - 2.2 H [facility] ID Date Data Source [id number] 07/07/2020 12:51:00 PM [facility] Name Value Range Interpretation Code Description Data Sanjuana rce(s) Supporting Document(s) BNP 6319 PG/ML 0 - 125 H [facility] ID Date Data Source [id number] 07/07/2020 12:51:00 PM [facility] Value Range Interpretation Code Description Data Sanjuana rce(s) Supporting Document(s) Lipase [Enzymatic activity/volume] in Serum or Plasma 12 U/L 13 - 60 L [facility] ID Date Data Source [id number] 07/07/2020 12:47:00 PM [facility] Value Range Interpretation Code Description Data Sanjuana rce(s) Supporting Document(s) Influenza virus A Ag [Presence] in Nasopharynx by Immunoassa y NEGATIVE NORMAL: NEGATIVE [facility] Influenza virus B Ag [Presence] in Nasopharynx by Immunoassa y NEGATIVE NORMAL: NEGATIVE [facility] NEGATIVENEGATIVE PROCEDURAL CO NTROL VALID KIT LOT # _[id number] 07/07/20. . KIT EXP DATE _10.06.20 07/07/20. .The Influenza A & B assay is a rapid molecular in vitro diagnostic testutilizing an isothermal nucleic acid amplification technology for thequalitative detection of influenza A and B viral RNA.Negative results do not preclude influenza virus infection and should not beused as the sole basis for diagnosis, treatment or other patient managementdecisions. ID Date Data Source [id number] 07/07/2020 12:47:00 PM [facility] Name Value Range Interpretation Code Description Data [facility] rce(s) Supporting Document(s) COVID-19 NOT DETECTED [facility] COVID-19 REENTER NOT DETECTED [facility] { PROCEDURAL CONTROL VALID KIT LOT # _[id number] 07/07/20.MD . KIT EXP DATE _10.22.20 07/07/20. . NORMAL RANGE IS NOT DETECTEDNEGATIVE RESULTS SHOULD BE TREATED PREUMPTIVE AND, IF INCONSISTENT WITHCLINICAL SIGNS AND SYMPTOMS OR NECESSARY FOR PATIENT MANAGEMENT, SHOULD BETESTED WITH DIFFERENT AUTHORIZED OR CLEARED MOLECULAR TESTS. NEGATIVE RESULTSDO NOT PRECLUDE SARS-CoV-2 INFECTION AND SHOULD NOT BE USED THE SOLE BASISFOR PATIENT MANAGEMENT DECISIONS. ID Date Data Source [id number] 07/07/2020 12:41:00 PM [facility] Name Value Range Interpretation Code Description Data [facility] Document(s) TROPONIN T 0.07 NG/ML 0.00 - 0.10 [facility] TROPONIN T0.1 ng/ml Recommended as the c linical threshold value forTroponin T. ID Date Data Source [id number] 07/07/2020 12:39:00 PM [facility] Name Value Range Interpretation Code Description Data [facility] rce(s) Supporting Document(s) CBC W/AUTOMATED DIFF [facility] COMPLETE BLOOD COUNT Leukocytes [#/volume] in Blood by Automated count 19.9 10^3/uL 4.2 - 11.0 H [facility] Erythrocytes [#/volume] in Blood by Automated count 4.54 10^6/uL 4. 50 - 6.30 [facility] Hemoglobin [Mass/volume] in Blood 11.1 g/dL 14.0 - 16.0 L [facility] Hematocrit [Volume Fraction] of Blood by Automated count 36.7 % 4 1.0 - 51.0 L [facility] Erythrocyte mean corpuscular volume [Entitic volume] by Auto mated count 80.8 fL 80.0 - 94.0 [facility] Erythrocyte mean corpuscular hemoglobin [Entitic mass] by Automated count 24.4 pg 27.0 - 34.0 L [facility] Erythrocyte mean corpuscular hemoglobin concentration [Mass/volume] by Automated count 30.2 g/dL 31.0 - 36.0 L [facility] Erythrocyte distribution width [Ratio] by Automated count 16.6 % 11.5 - 14.8 H [facility] Platelets [#/volume] in Blood by Automated count 484 10^3/uL 150 - 45 0 H [facility] Platelet mean volume [Entitic volume] in Blood by Automated count 9.5 fL 7.4 - 10.4 [facility] Neutrophils/100 leukocytes in Blood by Automated count 86.9 % 37. 0 - 80.0 H [facility] Lymphocytes/100 leukocytes in Blood by Manual count 5.6 % 25.0 - 40.0 L [facility] Monocytes/100 leukocytes in Blood by Automated count 6.0 % 3.0 - 8.0 [facility] Eosinophils/100 leukocytes in Blood by Automated count 0.1 % 0.0 - 7.0 [facility] 0.3 %IG 1.1 % 0.0 - 0.0 [facility] %NRBC 0.0 % 0.0 - 0.0 [facility] Neutrophils [#/volume] in Blood by Automated count 17.31 10^3/uL 2. 00 - 6.90 H [facility] Lymphocytes [#/volume] in Blood by Automated count 1.11 10^3/uL 0.60 - 3.40 [facility] Monocytes [#/volume] in Blood by Automated count 1.19 10^3/uL 0.00 - 0.90 H [facility] Eosinophils [#/volume] in Blood by Automated count 0.01 10^3/uL 0.00 - 0.70 [facility] Basophils [#/volume] in Blood by Automated count 0.05 10^3/uL 0.00 - 0.20 [facility] #IG 0.21 10^3/uL 0.00 - 0.10 H [facility] #NRBC 0.00 10^3/uL 0.00 - 0.00 [facility] ospital MANUAL DIFF SEE BELOW [facility] ital Segmented neutrophils/100 leukocytes in Blood by Manual count 89 % 37 - 80 H [facility] BAND 0 % 0 - 5 [facility] %LYMPH 5 % 25 - 40 [facility] %MONO 6 % 3 - 8 [facility] %EOS 0 % 0 - 7 [facility] 0 RBC MORPH NOT INDICATED [facility] ID Date Data Source [id number] 07/02/2020 02:58:00 PM [facility] Name Value Range Interpretation Code Description Data Sanjuana rce(s) Supporting Document(s) Erythrocyte sedimentation rate by Westergren method 18 mm/hr 0 - 20 [facility] SED RATE REENTER 18 [facility] ID Date Data Source [id number] 07/02/2020 08:23:00 AM EST [facility] Name Value Range Interpretation Code Description Data Sanjuana rce(s) Supporting Document(s) COMPREHENSIVE METABOLIC PANEL [facility] COMPREHENSIVE METABOLIC PANEL Sodium [Moles/volume] in Serum or Plasma 140 mEq/L 134 - 153 [facility] Potassium [Moles/volume] in Serum or Plasma 4.3 mEq/L 3.6 - 5.0 [facility] Chloride [Moles/volume] in Serum or Plasma 99 mEq/L 98 - 107 [facility] Carbon dioxide, total [Moles/volume] in Serum or Plasma 36 MEQ/L 22 - 30 H [facility] Glucose [Mass/volume] in Serum or Plasma 76 MG/DL 65 - 110 [facility] BUN 19 MG/DL 7 - 21 [facility] Creatinine [Mass/volume] in Serum or Plasma 0.8 MG/DL 0.7 - 1.5 [facility] BUN/CREAT 24 8 - 27 [facility] Protein [Mass/volume] in Serum or Plasma 6.8 G/DL 6.3 - 8.2 [facility] Albumin [Mass/volume] in Serum or Plasma 3.3 G/DL 3.9 - 5.0 L [facility] Globulin [Mass/volume] in Serum by calculation 3.5 GM/DL 2.4 - 3.2 H [facility] A/G RATIO 0.9 0.8 - 2.0 [facility] Calcium [Mass/volume] in Serum or Plasma 9.1 MG/DL 8.4 - 10.2 [facility] Bilirubin.total [Mass/volume] in Serum or Plasma <0.7 MG/DL 0.2 - 1.3 [facility] Alkaline phosphatase [Enzymatic activity/volume] in Serum or Plasma 67 U/L 38 - 126 [facility] Aspartate aminotransferase [Enzymatic activity/volume] in Serum or Plasma 16 U/L 5 - 40 [facility] Alanine aminotransferase [Enzymatic activity/volume] in Seru m or Plasma 18 U/L 7 - 56 [facility] Anion gap 3 in Serum or Plasma 5.0 mmol/L 8.0 - 16.0 L [facility] AGE 65 yrs [facility] NON-AA GFR >60 mL/min [facility] ital AFR AMER GFR >60 mL/min [facility] Male GFR In terprentation 20-49 yrs >60 mL/min Normal 50-59 yrs >56 mL/min Normal 60-69 yrs >49 mL/min Normal 70-79yrs >42 mL/min Normal 80 and above >35 mL/min Normal Female GFR Interpretation 20-39 yrs >60 mL/min Normal 40-49 yrs >58 mL/min Normal 50-59 yrs >51 mL/min Normal 60-69 yrs >45 mL/min Normal 70-79 yrs >39 mL/min Normal 80 and above >32 mL/min Normal ID Date Data Source [id number] 07/02/2020 07:58:00 AM EST [facility] Name Value Range Interpretation Code Description Data Sanjuana rce(s) Supporting Document(s) CBC NO DIFF [facility] ital COMPLETE BLOOD COUNT Leukocytes [#/volume] in Blood by Automated count 9.0 10^3/uL 4.2 - 1 1.0 [facility] Erythrocytes [#/volume] in Blood by Automated count 4.68 10^6/uL 4. 50 - 6.30 [facility] Hemoglobin [Mass/volume] in Blood 11.5 g/dL 14.0 - 16.0 L [facility] Hematocrit [Volume Fraction] of Blood by Automated count 38.3 % 4 1.0 - 51.0 L [facility] Erythrocyte mean corpuscular volume [Entitic volume] by Auto mated count 81.8 fL 80.0 - 94.0 [facility] Erythrocyte mean corpuscular hemoglobin [Entitic mass] by Automated count 24.6 pg 27.0 - 34.0 L [facility] Erythrocyte mean corpuscular hemoglobin concentration [Mass/volume] by Automated count 30.0 g/dL 31.0 - 36.0 L [facility] Erythrocyte distribution width [Ratio] by Automated count 15.9 % 11.5 - 14.8 H [facility] Platelets [#/volume] in Blood by Automated count 276 10^3/uL 150 - 45 0 [facility] Platelet mean volume [Entitic volume] in Blood by Automated count 9.6 fL 7.4 - 10.4 [facility] ID Date Data Source [id number] 06/28/2020 11:22:00 AM EST [facility] Name Value Range Interpretation Code Description Data Sanjuana rce(s) Supporting Document(s) CULTURE URINE [facility] _CULTURE URINE_$$[id number]$$[id number]$$[id number]$$[id number]$$[id number]$$[id number]$$[id number]$$[id number]$$[id number]$$ 608497$$[id number]$$405252$$[id number]$$832435$$[id number]$$[id number]$$156630$$[id number]$$109196$$ 381710$$178214$$958454$$754263$$639841$$[id number]$$[id number]$$[id number] -- Continued on next page --Patient: JAROD Ross Order: [id number] Page 2Culture: CULTURE URINE Status: Final ==== -- Continued on next page --Patient: JAROD Ross Order: [id number] Page 2Culture: CULTURE URINE Status: Prelim =====$$[id number] DATE/TIME: 06/28/2020 11:05Culture: CULTURE URINE Status: FinalUrine Culture,Comprehensive: P1No growth in 36 - 48 hours. Previous result entered on 06/27/2020 03:35 ET Specimen has been received and testing has been initiated.P1 Test performed by: [facility] #: [id number] [address] [place] [address] [id number] [facility] [id number] Director : Abilio Ratliff MD NPI #:[employer] : 06/27/20.0701.XMT.SENT REF 06/28/20.1122.XMT.SENT REF 06/28/20.1122. .to [place] via fax ID Date Data Source [id number] 06/25/2020 09:10:00 AM EST [facility] Name Value Range Interpretation Code Description Data Sanjuana rce(s) Supporting Document(s) URINALYSIS [facility] URINALYSIS SOURCE R [facility] COLOR yellow NORMAL: Yellow [facility] CLARITY clear NORMAL: Clear [facility] Specific gravity of Urine by Test strip 1.020 1.001 - 1.030 [facility] pH 5 5 - 9 [facility] Glucose [Mass/volume] in Urine by Test strip NORM NORMAL: Negat dung [facility] Bilirubin.total [Presence] in Urine by Test strip NEG NORMAL: Negative [facility] Ketones [Presence] in Urine by Test strip NEG NORMAL: Negative [facility] Protein [Mass/volume] in Urine by Test strip 100 NORMAL: Negat dung A [facility] Nitrite [Presence] in Urine by Test strip NEG NORMAL: Negative [facility] BLOOD NEG NORMAL: Negative [facility] Leukocyte esterase [Presence] in Urine by Test strip NEG SUSAN L: Negative [facility] Urobilinogen [Mass/volume] in Urine by Test strip NOR less ben n 1.0 mg/dL [facility] MICROSCOPIC See Below [facility] ital WBC 1 - 3 NORMAL: NONE SEEN [facility] Erythrocytes [#/volume] in Urine by Test strip 1 - 3 NORMAL: NON E SEEN [facility] EPITHELIAL FEW NORMAL: NONE SEEN [facility] Bacteria [Presence] in Urine sediment by Light microscopy Tr ilia NORMAL: NONE SEEN [facility] ID Date Data Source [id number] 06/24/2020 08:31:00 PM EST [facility] Name Value Range Interpretation Code Description Data Sanjuana rce(s) Supporting Document(s) COMPREHENSIVE METABOLIC PANEL [facility] COMPREHENSIVE METABOLIC PANEL Sodium [Moles/volume] in Serum or Plasma 137 mEq/L 134 - 153 [facility] Potassium [Moles/volume] in Serum or Plasma 4.9 mEq/L 3.6 - 5.0 [facility] Chloride [Moles/volume] in Serum or Plasma 97 mEq/L 98 - 107 L [facility] Carbon dioxide, total [Moles/volume] in Serum or Plasma 32 MEQ/L 22 - 30 H [facility] Glucose [Mass/volume] in Serum or Plasma 91 MG/DL 65 - 110 [facility] BUN 35 MG/DL 7 - 21 [facility] Creatinine [Mass/volume] in Serum or Plasma 1.0 MG/DL 0.7 - 1.5 [facility] BUN/CREAT 35 8 - 27 [facility] Protein [Mass/volume] in Serum or Plasma 6.4 G/DL 6.3 - 8.2 [facility] Albumin [Mass/volume] in Serum or Plasma 3.8 G/DL 3.9 - 5.0 L [facility] Globulin [Mass/volume] in Serum by calculation 2.6 GM/DL 2.4 - 3.2 [facility] A/G RATIO 1.5 0.8 - 2.0 [facility] Calcium [Mass/volume] in Serum or Plasma 8.7 MG/DL 8.4 - 10.2 [facility] Bilirubin.total [Mass/volume] in Serum or Plasma <0.7 MG/DL 0.2 - 1.3 [facility] Alkaline phosphatase [Enzymatic activity/volume] in Serum or Plasma 77 U/L 38 - 126 [facility] Aspartate aminotransferase [Enzymatic activity/volume] in Serum or Plasma 15 U/L 5 - 40 [facility] Alanine aminotransferase [Enzymatic activity/volume] in Seru m or Plasma 14 U/L 7 - 56 [facility] Anion gap 3 in Serum or Plasma 8.0 mmol/L 8.0 - 16.0 [facility] AGE 65 yrs [facility] GFR >60 mL/min [facility] AFR AMER GFR >60 mL/min [facility] Male GFR In terprentation 20-49 yrs >60 mL/min Normal 50-59 yrs >56 mL/min Normal 60-69 yrs >49 mL/min Normal 70-79yrs >42 mL/min Normal 80 and above >35 mL/min Normal Female GFR Interpretation 20-39 yrs >60 mL/min Normal 40-49 yrs >58 mL/min Normal 50-59 yrs >51 mL/min Normal 60-69 yrs >45 mL/min Normal 70-79 yrs >39 mL/min Normal 80 and above >32 mL/min Normal ID Date Data Source [id number] 06/24/2020 08:12:00 PM EST [facility] Name Value Range Interpretation Code Description Data Sanjuana rce(s) Supporting Document(s) CBC NO DIFF [facility] COMPLETE BLOOD COUNT Leukocytes [#/volume] in Blood by Automated count 11.5 10^3/uL 4.2 - 11.0 H [facility] Erythrocytes [#/volume] in Blood by Automated count 4.77 10^6/uL 4. 50 - 6.30 [facility] Hemoglobin [Mass/volume] in Blood 12.2 g/dL 14.0 - 16.0 L [facility] Hematocrit [Volume Fraction] of Blood by Automated count 40.3 % 4 1.0 - 51.0 L [facility] Erythrocyte mean corpuscular volume [Entitic volume] by Auto mated count 84.5 fL 80.0 - 94.0 [facility] Erythrocyte mean corpuscular hemoglobin [Entitic mass] by Automated count 25.6 pg 27.0 - 34.0 L [facility] Erythrocyte mean corpuscular hemoglobin concentration [Mass/volume] by Automated count 30.3 g/dL 31.0 - 36.0 L [facility] Erythrocyte distribution width [Ratio] by Automated count 15.9 % 11.5 - 14.8 H [facility] Platelets [#/volume] in Blood by Automated count 152 10^3/uL 150 - 45 0 [facility] Platelet mean volume [Entitic volume] in Blood by Automated count 11.0 fL 7.4 - 10.4 H [facility] ID Date Data Source [id number] 06/05/2020 04:16:00 PM EST [facility] Name Value Range Interpretation Code Description Data Sanjuana rce(s) Supporting Document(s) CVE PANEL [facility] LIPID PANEL Cholesterol [Mass/volume] in Serum or Plasma 144 MG/DL 131 - 200 [facility] Deprecated Triglyceride [Mass/volume] in Serum or Plasma 170 MG/DL 3 5 - 160 H [facility] HDL 29 MG/DL 29 - 86 [facility] Cholesterol in LDL [Mass/volume] in Serum or Plasma by Direc t assay 90 mg/dL 65 - 175 [facility] Cholesterol.total/Cholesterol in HDL [Mass Ratio] in Serum o r Plasma 5.0 3.4 - 4.9 H [facility] LDL/HDL 3.10 1.00 - 3.55 [facility] ital CVE RISK CHOL/HDL LDL/HDLMEN: 1/2 AVERAGE 3.43 1.00 AVERAGE 4.97 3.55 2X AVERAGE 9.55 6.25 3X AVERAGE 23.99 7.99WOMEN: 1/2 AVERAGE 3.27 1.47 AVERAGE 4.44 3.22 2X AVERAGE 7.05 5.03 3X AVERAGE 11.04 6.14 ID Date Data Source [id number] 06/04/2020 05:41:00 PM [facility] Name Value Range Interpretation Code Description Data Sanjuana rce(s) Supporting Document(s) Hemoglobin A1c/Hemoglobin.total in Blood 7.6 % 4.4 - 6.1 H [facility] {A1]{HB] ID Date Data Source [id number] 06/04/2020 10:18:00 AM [facility] Name Value Range Interpretation Code Description Data Sanjuana rce(s) Supporting Document(s) Magnesium [Mass/volume] in Serum or Plasma 1.6 MG/DL 1.7 - 2.2 L [facility] ID Date Data Source [id number] 06/04/2020 10:18:00 AM [facility] Name Value Range Interpretation Code Description Data Sanjuana e(s) Supporting Document(s) COMPREHENSIVE METABOLIC PANEL [facility] COMPREHENSIVE METABOLIC PANEL Sodium [Moles/volume] in Serum or Plasma 138 mEq/L 134 - 153 [facility] Potassium [Moles/volume] in Serum or Plasma 4.6 mEq/L 3.6 - 5.0 [facility] Chloride [Moles/volume] in Serum or Plasma 98 mEq/L 98 - 107 [facility] Carbon dioxide, total [Moles/volume] in Serum or Plasma 33 MEQ/L 22 - 30 H [facility] Glucose [Mass/volume] in Serum or Plasma 114 MG/DL 65 - 110 H [facility] BUN 28 MG/DL 7 - 21 [facility] Creatinine [Mass/volume] in Serum or Plasma 1.0 MG/DL 0.7 - 1.5 [facility] BUN/CREAT 28 8 - 27 [facility] Protein [Mass/volume] in Serum or Plasma 6.0 G/DL 6.3 - 8.2 L [facility] Albumin [Mass/volume] in Serum or Plasma 3.3 G/DL 3.9 - 5.0 L [facility] Globulin [Mass/volume] in Serum by calculation 2.7 GM/DL 2.4 - 3.2 [facility] A/G RATIO 1.2 0.8 - 2.0 [facility] Calcium [Mass/volume] in Serum or Plasma 8.8 MG/DL 8.4 - 10.2 [facility] Bilirubin.total [Mass/volume] in Serum or Plasma <0.7 MG/DL 0.2 - 1.3 [facility] Alkaline phosphatase [Enzymatic activity/volume] in Serum or Plasma 69 U/L 38 - 126 [facility] Aspartate aminotransferase [Enzymatic activity/volume] in Serum or Plasma 10 U/L 5 - 40 [facility] Alanine aminotransferase [Enzymatic activity/volume] in Seru m or Plasma 11 U/L 7 - 56 [facility] Anion gap 3 in Serum or Plasma 7.0 mmol/L 8.0 - 16.0 L [facility] AGE 65 yrs [facility] NON-AA GFR >60 mL/min [facility] ital AFR AMER GFR >60 mL/min [facility] Male GFR In terprentation 20-49 yrs >60 mL/min Normal 50-59 yrs >56 mL/min Normal 60-69 yrs >49 mL/min Normal 70-79yrs >42 mL/min Normal 80 and above >35 mL/min Normal Female GFR Interpretation 20-39 yrs >60 mL/min Normal 40-49 yrs >58 mL/min Normal 50-59 yrs >51 mL/min Normal 60-69 yrs >45 mL/min Normal 70-79 yrs >39 mL/min Normal 80 and above >32 mL/min Normal ID Date Data Source [id number] 06/04/2020 09:15:00 AM [facility] Name Value Range Interpretation Code Description Data Sanjuana rce(s) Supporting Document(s) Erythrocyte sedimentation rate by Westergren method 23 mm/hr 0 - 20 H [facility] SED RATE REENTER 23 [facility] ID Date Data Source [id number] 06/04/2020 09:14:00 AM [facility] Name Value Range Interpretation Code Description Data Sanjuana rce(s) Supporting Document(s) Thyroxine (T4) free index in Serum or Plasma by calculation 1.78 NG/DL 0.93 - 1.70 H [facility] ID Date Data Source [id number] 06/04/2020 08:50:00 AM [facility] Name Value Range Interpretation Code Description Data Sanjuana rce(s) Supporting Document(s) Thyrotropin [Units/volume] in Serum or Plasma by Detec tion limit <= 0.05 mIU/L 3.07 uIU/mL 0.47 - 5.01 [facility] ID Date Data Source [id number] 06/04/2020 08:48:00 AM [facility] Name Value Range Interpretation Code Description Data Sanjuana rce(s) Supporting Document(s) CBC NO DIFF [facility] ital COMPLETE BLOOD COUNT Leukocytes [#/volume] in Blood by Automated count 10.3 10^3/uL 4.2 - 11.0 [facility] Erythrocytes [#/volume] in Blood by Automated count 4.82 10^6/uL 4. 50 - 6.30 [facility] Hemoglobin [Mass/volume] in Blood 12.4 g/dL 14.0 - 16.0 L [facility] Hematocrit [Volume Fraction] of Blood by Automated count 40.1 % 4 1.0 - 51.0 L [facility] Erythrocyte mean corpuscular volume [Entitic volume] by Auto mated count 83.2 fL 80.0 - 94.0 [facility] Erythrocyte mean corpuscular hemoglobin [Entitic mass] by Automated count 25.7 pg 27.0 - 34.0 L [facility] Erythrocyte mean corpuscular hemoglobin concentration [Mass/volume] by Automated count 30.9 g/dL 31.0 - 36.0 L [facility] Erythrocyte distribution width [Ratio] by Automated count 15.5 % 11.5 - 14.8 H [facility] Platelets [#/volume] in Blood by Automated count 209 10^3/uL 150 - 45 0 [facility] Platelet mean volume [Entitic volume] in Blood by Automated count 9.5 fL 7.4 - 10.4 [facility] ID Date Data Source [id number] 05/31/2020 12:14:00 PM EST [facility] Name Value Range Interpretation Code Description Data Sanjuana rce(s) Supporting Document(s) CULTURE URINE [facility] _CULTURE URINE_$$[id number]$$[id number]$$[id number]$$148934$$577886$$614739$$753764$$549372$$767722$$ 450690$$137463$$990652$$206010$$519453$$767976$$209634$$010406$$258733$$554978$$ 634317$$353464$$617932$$903710$$889634$$843514$$454406$$[id number] -- Continued on next page --Patient: JAROD Ross Order: [id number] Page 2Culture: CULTURE URINE Status: Final ==== -- Continued on next page --Patient: JAROD ORTIZ J Order: [id number] Page 2Culture: CULTURE URINE Status: Prelim =====$$[id number]$$[id number] DATE/TIME: 05/31/2020 12:05Culture: CULTURE URINE Status: FinalUrine Culture,Comprehensive: P1No growth in 36 - 48 hours. Previous result entered on 05/30/2020 06:17 ET No growth after 18-24 hours.P1 [facility] #: [id number] [address] [place] [address] [address] [id number] [facility] [id number] Director : Abilio Ratliff MD NPI #:Hat Lining Blocker : 05/30/20.0711.XMT.SENT REF 05/31/20.1214.XMT.SENT REF ID Date Data Source [id number] 05/28/2020 10:32:00 AM EST [facility] Name Value Range Interpretation Code Description [facility] Document(s) URINALYSIS [facility] URINALYSIS SOURCE R [facility] COLOR yellow NORMAL: Yellow [facility] CLARITY clear NORMAL: Clear [facility] Specific gravity of Urine by Test strip 1.020 1.001 - 1.030 [facility] pH 5 5 - 9 [facility] Glucose [Mass/volume] in Urine by Test strip NORM NORMAL: Negat dung [facility] Bilirubin.total [Presence] in Urine by Test strip NEG NORMAL: Negative [facility] Ketones [Presence] in Urine by Test strip NEG NORMAL: Negative [facility] Protein [Mass/volume] in Urine by Test strip 100 NORMAL: Negat dung A [facility] Nitrite [Presence] in Urine by Test strip NEG NORMAL: Negative [facility] BLOOD NEG NORMAL: Negative [facility] Leukocyte esterase [Presence] in Urine by Test strip NEG SUSAN L: Negative [facility] Urobilinogen [Mass/volume] in Urine by Test strip NOR less ben n 1.0 mg/dL [facility] MICROSCOPIC See Below [facility] Erythrocytes [#/volume] in Urine by Test strip 1 - 3 NORMAL: NON E SEEN [facility] Mucus [Presence] in Urine sediment by Light microscopy 1+ NOR MAL: NONE SEEN [facility] Casts [#/area] in Urine sediment by Microscopy low power field See Be low [facility] Hyaline casts [#/area] in Urine sediment by Microscopy low p ower field 1-3 NORMAL: None Seen A [facility] ID Date Data Source [id number] 05/05/2020 01:23:00 PM EDT [facility] Name Value Range Interpretation Code Description Data Sanjuana rce(s) Supporting Document(s) CBC W/AUTOMATED DIFF [facility] CORRECTE D REPORT COMPLETE BLOOD COUNT Leukocytes [#/volume] in Blood by Automated count 10.2 10^3/uL 4.2 - 11.0 [facility] Erythrocytes [#/volume] in Blood by Automated count 4.64 10^6/uL 4. 50 - 6.30 [facility] Hemoglobin [Mass/volume] in Blood 12.3 g/dL 14.0 - 16.0 L [facility] Hematocrit [Volume Fraction] of Blood by Automated count 39.7 % 4 1.0 - 51.0 L [facility] Erythrocyte mean corpuscular volume [Entitic volume] by Auto mated count 85.6 fL 80.0 - 94.0 [facility] Erythrocyte mean corpuscular hemoglobin [Entitic mass] by Automated count 26.5 pg 27.0 - 34.0 L [facility] Erythrocyte mean corpuscular hemoglobin concentration [Mass/volume] by Automated count 31.0 g/dL 31.0 - 36.0 L [facility] Erythrocyte distribution width [Ratio] by Automated count 14.8 % 11.5 - 14.8 [facility] Platelets [#/volume] in Blood by Automated count 248 10^3/uL 150 - 45 0 [facility] Platelet mean volume [Entitic volume] in Blood by Automated count 9.9 fL 7.4 - 10.4 [facility] Neutrophils/100 leukocytes in Blood by Automated count 65.5 % 37. 0 - 80.0 [facility] Lymphocytes/100 leukocytes in Blood by Manual count 17.5 % 25.0 - 40.0 L [facility] Monocytes/100 leukocytes in Blood by Automated count 10.9 % 3.0 - 8.0 H [facility] Eosinophils/100 leukocytes in Blood by Automated count 4.9 % 0.0 - 7.0 [facility] Basophils/100 leukocytes in Blood by Automated count 0.7 % 0.0 - 2.0 [facility] %IG 0.5 % 0.0 - 0.0 [facility] %NRBC 0.0 % 0.0 - 0.0 [facility] Neutrophils [#/volume] in Blood by Automated count 6.57 10^3/uL 2.00 - 6.90 [facility] Lymphocytes [#/volume] in Blood by Automated count 1.76 10^3/uL 0.60 - 3.40 [facility] Monocytes [#/volume] in Blood by Automated count 1.09 10^3/uL 0.00 - 0.90 H [facility] Eosinophils [#/volume] in Blood by Automated count 0.49 10^3/uL 0.00 - 0.70 [facility] Basophils [#/volume] in Blood by Automated count 0.07 10^3/uL 0.00 - 0.20 [facility] #IG 0.05 10^3/uL 0.00 - 0.10 [facility] #NRBC 0.00 10^3/uL 0.00 - 0.00 [facility] ospital MANUAL DIFF NOT INDICATED [facility] 467 Segmented neutrophils/100 leukocytes in Blood by Manual count 67 % 37 - 80 [facility] %LYMPH 23 % 25 - 40 L [facility] %MONO 8 % 3 - 8 [facility] %EOS 2 % 0 - 7 [facility] RBC MORPH MORPH IS NORMAL [facility] FOLLOWING RESULTS REPORTED IN ERROR WB] WBC RB] RBC HG] HEMOGLOBIN MV] MCV MH] MCH CC] MCHC PL] PLATELETS MP] MPV { CORRECT MANUAL DIFF { CORRECT ID Date Data Source [id number] 05/05/2020 01:26:00 PM EDT [facility] Name Value Range Interpretation Code Description Data Sanjuana rce(s) Supporting Document(s) CBC NO DIFF [facility] COMPLETE BLOOD COUNT Leukocytes [#/volume] in Blood by Automated count 10.2 10^3/uL 4.2 - 11.0 [facility] Erythrocytes [#/volume] in Blood by Automated count 4.64 10^6/uL 4. 50 - 6.30 [facility] Hemoglobin [Mass/volume] in Blood 12.3 g/dL 14.0 - 16.0 L [facility] Hematocrit [Volume Fraction] of Blood by Automated count 39.7 % 4 1.0 - 51.0 L [facility] Erythrocyte mean corpuscular volume [Entitic volume] by Auto mated count 85.6 fL 80.0 - 94.0 [facility] Erythrocyte mean corpuscular hemoglobin [Entitic mass] by Automated count 26.5 pg 27.0 - 34.0 L [facility] Erythrocyte mean corpuscular hemoglobin concentration [Mass/volume] by Automated count 31.0 g/dL 31.0 - 36.0 [facility] Erythrocyte distribution width [Ratio] by Automated count 14.8 % 11.5 - 14.8 [facility] Platelets [#/volume] in Blood by Automated count 248 10^3/uL 150 - 45 0 [facility] Platelet mean volume [Entitic volume] in Blood by Automated count 9.9 fL 7.4 - 10.4 [facility] ID Date Data Source [id number] 05/05/2020 09:01:00 AM EDT [facility] Name Value Range Interpretation Code Description Data Sanjuana rce(s) Supporting Document(s) Erythrocyte sedimentation rate by Westergren method 59 mm/hr 0 - 20 H [facility] SED RATE REENTER 59 [facility] ID Date Data Source [id number] 05/05/2020 08:45:00 AM EDT [facility] Name Value Range Interpretation Code Description Data Sanjuana rce(s) Supporting Document(s) COMPREHENSIVE METABOLIC PANEL [facility] COMPREHENSIVE METABOLIC PANEL Sodium [Moles/volume] in Serum or Plasma 140 mEq/L 134 - 153 [facility] Potassium [Moles/volume] in Serum or Plasma 4.8 mEq/L 3.6 - 5.0 [facility] Chloride [Moles/volume] in Serum or Plasma 100 mEq/L 98 - 107 [facility] Carbon dioxide, total [Moles/volume] in Serum or Plasma 32 MEQ/L 22 - 30 H [facility] Glucose [Mass/volume] in Serum or Plasma 99 MG/DL 65 - 110 [facility] BUN 24 MG/DL 7 - 21 [facility] Creatinine [Mass/volume] in Serum or Plasma 0.9 MG/DL 0.7 - 1.5 [facility] BUN/CREAT 27 8 - 27 [facility] Protein [Mass/volume] in Serum or Plasma 6.7 G/DL 6.3 - 8.2 [facility] Albumin [Mass/volume] in Serum or Plasma 3.5 G/DL 3.9 - 5.0 L [facility] Globulin [Mass/volume] in Serum by calculation 3.2 GM/DL 2.4 - 3.2 [facility] A/G RATIO 1.1 0.8 - 2.0 [facility] Calcium [Mass/volume] in Serum or Plasma 9.2 MG/DL 8.4 - 10.2 [facility] Bilirubin.total [Mass/volume] in Serum or Plasma <0.7 MG/DL 0.2 - 1.3 [facility] Alkaline phosphatase [Enzymatic activity/volume] in Serum or Plasma 72 U/L 38 - 126 [facility] Aspartate aminotransferase [Enzymatic activity/volume] in Serum or Plasma 14 U/L 5 - 40 [facility] Alanine aminotransferase [Enzymatic activity/volume] in Seru m or Plasma 13 U/L 7 - 56 [facility] Anion gap 3 in Serum or Plasma 8.0 mmol/L 8.0 - 16.0 [facility] AGE 64 yrs [facility] NON-AA GFR >60 mL/min [facility] AFR AMER GFR >60 mL/min [facility] Male GFR In terprentation 20-49 yrs >60 mL/min Normal 50-59 yrs >56 mL/min Normal 60-69 yrs >49 mL/min Normal 70-79yrs >42 mL/min Normal 80 and above >35 mL/min Normal Female GFR Interpretation 20-39 yrs >60 mL/min Normal 40-49 yrs >58 mL/min Normal 50-59 yrs >51 mL/min Normal 60-69 yrs >45 mL/min Normal 70-79 yrs >39 mL/min Normal 80 and above >32 mL/min Normal ID Date Data Source [id number] 04/09/2020 09:32:00 AM EDT [facility] Name Value Range Interpretation Code Description Data Sanjuana rce(s) Supporting Document(s) Erythrocyte sedimentation rate by Westergren method 12 mm/hr 0 - 20 [facility] SED RATE REENTER 12 [facility] ID Date Data Source [id number] 04/09/2020 09:03:00 AM EDT [facility] Name Value Range Interpretation Code Description Data Sanjuana rce(s) Supporting Document(s) C reactive protein [Mass/volume] in Serum or Plasma by High sensitivity method 68.20 MG/L 1.00 - 3.00 H [facility] CDC/S HS-CRP CUT-OFF: RELATIVE RISK: <1.0 mg/L Low 1.0 - 3.0 mg/L Average >3.0 mg/L High Optimally, the average of HS-CRP results repeated two weeks apart should be used for risk assessment. ID Date Data Source [id number] 04/09/2020 08:41:00 AM EDT [facility] Name Value Range Interpretation Code Description Data Sanjuana rce(s) Supporting Document(s) BNP 370 PG/ML 0 - 125 H [facility] ID Date Data Source [id number] 04/09/2020 08:40:00 AM EDT [facility] Name Value Range Interpretation Code Description Data Sanjuana rce(s) Supporting Document(s) COMPREHENSIVE METABOLIC PANEL [facility] COMPREHENSIVE METABOLIC PANEL Sodium [Moles/volume] in Serum or Plasma 138 mEq/L 134 - 153 [facility] Potassium [Moles/volume] in Serum or Plasma 4.4 mEq/L 3.6 - 5.0 [facility] Chloride [Moles/volume] in Serum or Plasma 98 mEq/L 98 - 107 [facility] Carbon dioxide, total [Moles/volume] in Serum or Plasma 27 MEQ/L 22 - 30 [facility] Glucose [Mass/volume] in Serum or Plasma 200 MG/DL 65 - 110 H [facility] BUN 21 MG/DL 7 - 21 [facility] Creatinine [Mass/volume] in Serum or Plasma 0.8 MG/DL 0.7 - 1.5 [facility] BUN/CREAT 26 8 - 27 [facility] Protein [Mass/volume] in Serum or Plasma 7.3 G/DL 6.3 - 8.2 [facility] Albumin [Mass/volume] in Serum or Plasma 3.4 G/DL 3.9 - 5.0 L [facility] Globulin [Mass/volume] in Serum by calculation 3.9 GM/DL 2.4 - 3.2 H [facility] A/G RATIO 0.9 0.8 - 2.0 [facility] Calcium [Mass/volume] in Serum or Plasma 9.2 MG/DL 8.4 - 10.2 [facility] Bilirubin.total [Mass/volume] in Serum or Plasma <0.7 MG/DL 0.2 - 1.3 [facility] Alkaline phosphatase [Enzymatic activity/volume] in Serum or Plasma 74 U/L 38 - 126 [facility] Aspartate aminotransferase [Enzymatic activity/volume] in Serum or Plasma 13 U/L 5 - 40 [facility] Alanine aminotransferase [Enzymatic activity/volume] in Seru m or Plasma 13 U/L 7 - 56 [facility] Anion gap 3 in Serum or Plasma 13.0 mmol/L 8.0 - 16.0 [facility] AGE 64 yrs [facility] NON-AA GFR >60 mL/min [facility] AFR AMER GFR >60 mL/min [facility] Male GFR In terprentation 20-49 yrs >60 mL/min Normal 50-59 yrs >56 mL/min Normal 60-69 yrs >49 mL/min Normal 70-79yrs >42 mL/min Normal 80 and above >35 mL/min Normal Female GFR Interpretation 20-39 yrs >60 mL/min Normal 40-49 yrs >58 mL/min Normal 50-59 yrs >51 mL/min Normal 60-69 yrs >45 mL/min Normal 70-79 yrs >39 mL/min Normal 80 and above >32 mL/min Normal ID Date Data Source [id number] 04/09/2020 07:59:00 AM EDT [facility] Name Value Range Interpretation Code Description Data Sanjuana rce(s) Supporting Document(s) CBC NO DIFF [facility] COMPLETE BLOOD COUNT Leukocytes [#/volume] in Blood by Automated count 12.9 10^3/uL 4.2 - 11.0 H [facility] Erythrocytes [#/volume] in Blood by Automated count 5.56 10^6/uL 4. 50 - 6.30 [facility] Hemoglobin [Mass/volume] in Blood 14.7 g/dL 14.0 - 16.0 [facility] Hematocrit [Volume Fraction] of Blood by Automated count 46.2 % 4 1.0 - 51.0 [facility] Erythrocyte mean corpuscular volume [Entitic volume] by Auto mated count 83.1 fL 80.0 - 94.0 [facility] Erythrocyte mean corpuscular hemoglobin [Entitic mass] by Automated count 26.4 pg 27.0 - 34.0 L [facility] Erythrocyte mean corpuscular hemoglobin concentration [Mass/volume] by Automated count 31.8 g/dL 31.0 - 36.0 [facility] Erythrocyte distribution width [Ratio] by Automated count 14.5 % 11.5 - 14.8 [facility] Platelets [#/volume] in Blood by Automated count 363 10^3/uL 150 - 45 0 [facility] Platelet mean volume [Entitic volume] in Blood by Automated count 9.3 fL 7.4 - 10.4 [facility] ID Date Data Source [id number] 04/02/2020 01:33:00 PM EDT [facility] [address] [place] [address] PHONE: [phone] FAX: [phone] Name .................. : JAROD Ross Acct Number.................. : [id number] ROOM. ................. : TR-03 Number ................... : [id number] Stay type ............. : E/R Discharge Date......... ... : 04/01/20 Admit Date ......... : 04/01/20 Admit Phys .................... : MIRIAM ACUNA Date of ....... : 1955 Family Phys ................... : KUNNUMPURA Phone .................. : [phone] Age ................................ : 64 Film# .................. .:[id number] Sex ................................. : M Unsigned transcriptions are preliminary reports and do not represent a medical or legal document CT LOWER EXT RT W/O CONT [id number] COMPLETE:04/01/20 15:56 RLB [id number] Reason(s): recent foot surgery, r/o osteomyelitis CT SCAN OF THE RIGHT FOOT WITHOUT CONTRAST ENHANCEMENT: FINDINGS: There is extensive post surgical change identified in the foot with hardware identified. There are pins identified in the talus with pins also traversing the mid-tarsal rows. There is diffuse osteopenia identified. This osteopenia involves all of the tarsal bones, but is most prominent in the navicular. This could be related to disuse osteopenia. The possibility of osteomyelitis cannot be excluded, but there is no definite signs of periosteal reaction to suggest new bone formation. The hardware is intact. IMPRESSION: Diffuse osteopenia. I cannot exclude osteomyelitis. Consider MR with metal reduction artifact or 3-phase bone scan. No other significant findings. While performing the above CT examination, radiation dose reduction was accomplished utilizing automated exposure control, adjusting of the mA and kV based on the patient's body size and/or the use of imperative reconstructive techniques. CT dose: 121.8 mGycm Electronically Reviewed and Signed By ILYA BAUMAN MD , 04/02/20 13:33, [facility] Transcribe Initials: LEI , Transcribe Date: 04/02/20 00:51, Dictation Date: Copy for: EMERGENCY DEPT via [facility] Copy for: 710 MED REC DISCHARGED Page 1 of 1 Name Value Range Interpretation Code Description Data Sanjuana rce(s) Supporting Document(s) ID Date Data Source [id number] 04/02/2020 01:21:00 PM EDT [facility] [address] [place] [address] PHONE: [phone] FAX: [phone] Name .................. : JAROD Ross Acct Number.................. : [id number] ROOM. ................. : TR-03 MR Number ................... : [id number] Stay type ............. : E/R Discharge Date......... ... : Admit Date ......... : 04/01/20 Admit Phys .................... : MIRIAM ACUNA Date of ....... : 1955 Family Phys ................... : ADY Phone .................. : [phone] Age ................................ : 64 Film# .................. .:[id number] Sex ................................. : M Unsigned transcriptions are preliminary reports and do not represent a medical or legal document CHEST PORTABLE [id number] COMPLETE:04/01/20 11:31 [id number] Reason(s): Shortness of Breath PORTABLE CHEST X-RAY: COMPARISON: 02/21/20 FINDINGS: Frontal view of the chest is performed. COPD changes are present. There are increased markings in bilateral lung fatima suspicious for CHF and/or pneumonic infiltrates. The heart is not enlarged. There is no pneumothorax, pleural effusion or acute osseous abnormality. IMPRESSION: COPD. Increased markings bilateral lung fatima raising concern for CHF and/or pneumonic infiltrates. Electronically Reviewed and Signed By Tiffany Bergeron MD , 04/02/20 13:21, KGCarlos Transcribe Initials: DZ , Transcribe Date: 04/01/20 17:31, Dictation Date: Copy for: EMERGENCY DEPT via modem Copy for: 710 MED REC DISCHARGED Page 1 of 1 Name Value Range Interpretation Code Description Data Sanjuana rce(s) Supporting Document(s) ID Date Data Source [id number] 04/02/2020 01:47:00 [place] [address] RESPIRATORY CARE REPORT ==== ---------NAME------- NUMBER SEX AGE ADMIT DISC. XRAY# F/C CARLTON Ross [id number] M 64 04/01/20 04/01/20 [id number] E/R DATE OF : 1955 M/R# [id number] #: [id number] TR-03 LOCATION: [place] [id number] COMPLE TE:04/01/20 13:02 [facility] [id number] PHYSICIAN: MIRIAM ACUNA Name Value Range Interpretation Code Description Data Sanjuana rce(s) Supporting Document(s) ID Date Data Source [id number] 04/01/2020 11:15:00 AM EDT [facility] 1 OrderSheet [facility] Emergency Department [address] [place] [address] Phone #: ext- [phone] 04/01/2020 11:11 Patient: DIANA OLIVERA Sex: M : 1955 Age: 64yWEIGHT:70.3 kg (S) HEIGHT:71 inches (S) BMI:21.6ALLERGIES: TAPECHIEF COMPLAINT: decreased mental statusDIAGNOSIS: Systemic infection, Urinary tract infectious disease, Renal impairment, Opioid dependence,PneumoniaLAB ORDERSOrder Description Priority Entered Acknowledged InitialedCBC w Diff STAT 11:04/01/2020 11:34 Rigo Cramer RN, M.D.;CMP STAT 11:04/01/2020 11:34 Rigo Cramer RN, M.D.;Lipase STAT 11:04/01/2020 11:34 Rigo Cramer RN, M.D.;PT/PTT STAT 11:04/01/2020 11:34 Rigo Craemr RN, M.D.;Troponin-T STAT 11:04/01/2020 11:34 Rigo Cramer RN, M.D.;Lactic Acid STAT 11:04/01/2020 11:34 Rigo Cramer RN, M.D.;Blood Culture STAT 11:04/01/2020 11:34 [id number] X2 (Rigo Sewell RN11:31 04/01/2020) Geraldine;Blood Culture STAT 11:04/01/2020 11:34 [id number] X2 (Rigo Sewell RN11:41 04/01/2020) Geraldine;BNP STAT 11:32 04/01/2020 11:34 Rigo Cramer RN, M.D.;Urinalysis (Cath STAT 11:33 04/01/2020 12:18 Nicole,SpecRigo Allen R.N., M.D.; 2 OrderSheet [facility] Emergency Department [address] [place] [address] Phone #: ext- [phone] 04/01/2020 11:11 Patient: DIANA OLIVERA Sex: M : 1955 Age: 64yCulture, Urine STAT 13:07 04/01/2020 13:16 Bonnie,(Urine, Catheter) Rigo Ge R.N., M.D.;ABG STAT 13:36 04/01/2020 13:41 Miriam Nicole Riccardo Amber R.N. M.D.;DIAGNOSTIC STUDY ORDERSOrder Description Priority Entered Acknowledged InitialedChest Portable 1 STAT 11:31 04/01/2020 11:34 DorisView (Oxygen? Rigo Ge RN(Yes)) Geraldine; Reason for Study: Shortness of BreathCT LOWER EXT RT STAT 14:15 04/01/2020 Ack'd: 14:20 14:25 DorisW/O CONT Rigo Ge Amber Hagenston RN(Oxygen?(No)) Geraldine; R.N.(IV?(Yes)) NOTES: CT right foot, W/O Reason for Study: recent foot surgery, r/o osteomyelitisMEDICATION/IV/DRIP/FLUID ORDERSOrder Description Priority Entered Acknowledged InitialedNS IV 500 mL 11:34 04/01/2020 11:46 DorisBolus: : Bolus 500 Rigo Ge RNmL, then 125 mL/hr M.DElizabeth;(X1)Narcan 0.4 mg IV X 11:34 04/01/2020 11:45 Doris1 dose: 0.4 mg Rigo Ge RN(NOW x1) Geraldine;Ativan IVP 1 mg 11:46 04/01/2020 11:55 Krysta(HIGH ALERT Rigo Ge RNMEDICATION) Geraldine;NitroGLYCERIN 12:35 04/01/2020 Cancelled: Physician Order 12:43 Miriam,Topical Ointment Rigo Ge M.D.0.5 in. M.D.;Lasix IVP 40 mg 12:35 04/01/2020 12:47 Rigo Cramer RN, M.D.;Zosyn- IVPB 4.5 gm 12:35 04/01/2020 12:56 Krysta(in 50 mL D5W, X1) Rigo Ge RN, M.D.;- (please d/c iv 12:37 04/01/2020 Cancelled: Other 12:52 Krysta Griffithfluids, saline lock) Rigo Ge RN 3 OrderSheet [facility] Emergency Department [address] [place] [address] Phone #: ext- [phone] 04/01/2020 11:11 Patient: DIANA OLIVERA Sex: M : 1954 Age: 64y M.D.;Narcan 0.4 mg IV X 12:46 04/01/2020 12:54 Doris1 dose: 0.4 mg Rigo Ge RN(NOW x1) Geraldine;NS IV : 150 mL/hr 13:07 04/01/2020 Ack'd: 13:16 13:24 Cyn Cramer Amber Hagenston RN M.D.; R.N.GENERAL ORDERSOrder Description Priority Entered Acknowledged InitialedBlood Pressure 11:31 04/01/2020 11:34 DorisMonitor Rigo Ge RN, M.D.;Manager Pharmacy 11:31 04/01/2020 11:32 Malinda(continuous) Rigo Ge laborer headingDudley Solis M.D.; [id number] 11:31 04/01/2020 11:32 [place] Rigo Ge laborer headingDudley M.D.; [id number] 11:04/01/2020 11:34 Rigo Cramer RN, M.D.;Obtain Old EKG 11:04/01/2020 11:34 Rigo Cramer RN, M.D.;Obtain Old Records 11:04/01/2020 11:34 Rigo Cramer RN, M.D.;Oxygen titrate to 11:04/01/2020 11:34 Krysta92% Rigo Ge RN, M.D.;Pulse oximeter 11:04/01/2020 11:34 Krysta(Continuous) Rigo Ge RN, M.D.;Saline Lock 11:04/01/2020 11:34 Rigo Cramer RN, M.D.;Vitals 11:04/01/2020 11:34 Rigo Cramer RN, M.D.;Straight Cath 11:33 04/01/2020 12:18 Miriam Nicole Riccardo Amber R.N. 4 OrderSheet [facility] Emergency Department [address] [place] [address] Phone #: ext- [phone] 04/01/2020 11:11 Patient: DIANA OLIVERA Sex: M : 1955 Age: 64y M.D.;Accucheck 11:35 04/01/2020 Ack'd: 11:36 11:46 Rigo Cramer Amber Hagenston RN M.D.; R.N.Consult - 13:14 04/01/2020 13:16 Cristina Nicole Riccardo Amber R.N. M.D.;Transfer: 16:15 04/01/2020 16:17 Miriam Longoria Riccardo Jennifer R.N. M.D.;[Electronically signed by Sonido Nicole R.N. (17:40 04/01/2020)][Electronically signed by Rigo Ge M.D. (20:24 04/01/2020)][Electronically locked by Sonido Nicole R.N. (17:40 04/01/2020)] Name Value Range Interpretation Code Description Data Sanjuana rce(s) Supporting Document(s) ID Date Data Source [id number] 04/01/2020 11:15:00 AM EDT [facility] 1 Medication Reconciliation Report [facility] Emergency Department [address] [place] [address] Phone #: ext- [phone] 04/01/2020 11:11 Patient: DIANA OLIVERA Sex: M : 1955 Age: 64yWeight: 70.3 kgHeight/Length: 71 in.BMI: 21.6ALLERGIES: TAPEThe patient's Home Medications are listed below:THE FOLLOWING MEDICATIONS NEED TO BE RECONCILED: Aspirin Oral (81 mg) 1 tablet, 2x a day Blast anti microbial wound gel DULoxetine HCl Oral (60 mg) 1 capsule, daily FentaNYL Transdermal (50 mcg/hr) 1 patch, q3days Fish Oil Oral 1200 mg, daily, every AM Gabapentin Oral (800 mg), 4x a day GlipiZIDE XL Oral (10 mg) 1 tablet, daily, last dose: 01/15 HumuLIN N Subcutaneous (100 unit/mL) 72 units dinner, daily, every PM HumuLIN N Subcutaneous 66 units, daily, every AM Lisinopril Oral (5 mg) 1 tablet, daily MetFORMIN HCl Oral (1000 mg) 1 tablet, 2x a day Metoprolol Tartrate Oral (25 mg) 1 tablet, 2x a day Niacin Oral (500 mg) 2 tablets, daily OxyCODONE HCl Oral 10 mg, q6h, pain, prn Pravachol Oral (20 mg) 1 tablet, daily, at bedtime 2 Medication Reconciliation Report [facility] Emergency Department [address] [place] [address] Phone #: ext- [phone] 04/01/2020 11:11 Patient: DIANA OLIVERA Sex: M : 1955 Age: 64y Travatan Z Ophthalmic (0.004 %) 1 drop, in each eye daily Vitamin, dailyThe source(s) of the original Home Medication information:Not obtained.The following Medications were given to the patient in the Emergency Department:Narcan [IVP] IVP 0.4 mg, administered: 04/01/2020 11:40:00 AMIV NS w/ bolus IV Fluids bolus 500 mL over 30 minute(s), then 125 mL/hr, administered: 04/01/202011:40:00 AMAtivan [IVP] IVP 1 mg diluted in NS 10 mL, administered: 04/01/2020 11:53:00 AMLasix [IVP] IVP 40 mg, administered: 04/01/2020 12:42:00 PMNarcan [IVP] IVP 0.4 mg, administered: 04/01/2020 12:54:00 PMZosyn [IVPB] IVPB bolus 0, then 4.5 gm 100 mL/hr, administered: 04/01/2020 12:48:00 PMNS [IV] IV Fluids bolus 0, then 150 mL/hr, administered: 04/01/2020 1:24:00 PMThe following Medications were prescribed to the patient:None. Name Value Range Interpretation Code Description Data Sanjuana rce(s) Supporting Document(s) ID Date Data Source [id number] 04/01/2020 11:15:00 AM EDT [facility] 1 Medication Administration Record [facility] Emergency Department [address] [place] [address] Phone #: ext- [phone] 04/01/2020 11:11 Patient: DIANA OLIVERA Sex: M : 1955 Age: 64yWeight: 70.3 kgHeight/Length: 71 inBMI: 21.6ALLERGIES: TAPE Date/Time Medication Administered Medication OrderedStart IV NS W/ BOLUS NS IV 500 mL Bolus: : Bolus 57906:40 04/01/2020 Dose: IV Fluids mL, then 125 mL/hr (X1)Krysta Griffith RN Rate: 125 mL/hr over 4 hour(s)---- Bolus: 500 mL over 30 minute(s)Stop Dispensed: 1000 mL bag12:40 04/01/2020 Site: #1 right Abhijeet Griffith RNGiven NARCAN [IVP] (NALOXONE HCL) Narcan 0.4 mg IV X 1 dose: 0.4 mg11:40 04/01/2020 Dose: 0.4 mg IVP (NOW x1)Krysta Griffith RN Site: #1 right ACGiven ATIVAN [IVP] (LORAZEPAM) Ativan IVP 1 mg (HIGH ALERT11:53 04/01/2020 Dose: 1 mg IVP MEDICATION)Krysta Griffith RN In: NS 10 mL Site: #1 right ACGiven LASIX [IVP] Lasix IVP 40 mg12:42 04/01/2020 Dose: 40 mg IVTony Griffith RN Site: #1 right ACStart ZOSYN [IVPB] (PIPERACILLIN Zosyn- IVPB 4.5 gm (in 50 mL12:48 04/01/2020 SOD-TAZOBACTAM SO) D5W, X1)Krysta Griffith RN Dose: 4.5 gm IVPB---- Rate: 100 mL/hr over 30 minute(s)Stop Dispensed: 50 mL bag13:15 04/01/2020 Site: #1 right Sonido Sosa, R.NElizabethGiven NARCAN [IVP] (NALOXONE HCL) Narcan 0.4 mg IV X 1 dose: 0.4 mg12:54 04/01/2020 Dose: 0.4 mg IVP (NOW x1)Krysta phillips RN Site: #1 right ACStart NS [IV] NS IV : 150 mL/hr13:24 04/01/2020 Dose: IV FluidsKrysta Griffith RN Rate: 150 mL/hr over 4 hour(s)---- Dispensed: 1000 mL bagContinued Upon Transfer Site: #1 right AC17:10 04/01/2020Sonido Nicole R.N. Name Value Range Interpretation Code Description Data Sanjuana rce(s) Supporting Document(s) ID Date Data Source [id number] 04/01/2020 11:15:00 AM EDT [facility] 1 General Instructions [facility] Emergency Department [address] [place] [address] Phone #: ext- [phone] 04/01/2020 11:11 Patient: DIANA OLIVERA Sex: M : 1955 Age: 64yNarcotic dependence (Fentanyl and oxycodone) (Over-sedation).Severe sepsis with altered mental status and acute respiratory failure and renal failure. No shock.Lobar pneumonia with hypoxemia and sepsis.Mild chronic renal insufficiency.Acute urinary tract infection with pyelonephritis.Acute BandemiaRule out post-op Osteomyelitis right foot.(Electronically signed by Rigo Ge M.D. 04/01/2020 20:24) Name Value Range Interpretation Code Description Data Sanjuana rce(s) Supporting Document(s) ID Date Data Source [id number] 04/01/2020 11:15:00 AM EDT [facility] 1 Clinical Report - Nurses [facility] Emergency Department [address] [place] [address] Phone #: ext- [phone] 04/01/2020 11:11 [id number] Sex: M : 1955 Age: 64yTRIAGEArrived by EMS. Historian: EMS.Acuity: LEVEL 3.Chief Complaint: (LETHARGIC, MEDICATION OVERDOSE).This started today. ( Per EMS, pt was wearing 100 mcg fentanyl patch and was reported to be quitelethargic, facility removed the patch and administered 0.4 mg narcan, pt more responsive).EMS Treatment RETAIL PHARMACIST:EMS treatment verbally communicated and see EMS report. Oxygen administered by nonrebreathermask. Finger stick glucose performed (239). NARCAN 0.4mg 0.4 mg IM.SEPSIS SCREEN: SIRS Screen negative. Sepsis Screen negative. No suspected or confirmed signs ofinfection present.ROBINSON COMA SCORE: 15- eyes open- spontaneous (4); best verbal response- oriented (5); bestmotor response- obeys commands (6). --11:24 04/01/20 Julio Patel RN11:12 04/01/20. HR: 86. RR: 24. O2 saturation: 93% on room air. Temp: 99.5 F (oral). Pain level now:09/23. --11:24 04/01/20 Julio Patel RN11:20 04/01/20. BP: 98/59. MAP: 72. --11:41 04/01/20 Krysta Griffith RN.Weight: 70.3 kg stated. Height/Length: 71 inches Per Patient. BMI: 21.6. --11:12 04/01/20 Julio Patel RN.MedicationsAspirin Oral (Tablet Delayed Release 81 mg) 1 tablet, 2x a day. Blast anti microbial wound gel. DULoxetine HCl Oral (Capsule Delayed Release Particles 60 mg) 1 capsule, daily. FentaNYL Transdermal (Patch 72 Hour 50 mcg/hr) 1 patch, q3days. Fish Oil Oral 1200 mg, daily every AM. Gabapentin Oral (Tablet 800 mg), 4x a day. GlipiZIDE XL Oral (Tablet Extended Release 24 Hour 10 mg) 1 tablet, daily, last dose 01/15. HumuLIN N Subcutaneous (Suspension 100 unit/mL) 72 units dinner, daily every PM. HumuLIN N Subcutaneous 66 units, daily every AM. Lisinopril Oral (Tablet 5 mg) 1 tablet, daily. MetFORMIN HCl Oral (Tablet 1000 mg) 1 tablet, 2x a day. M etoprolol Tartrate Oral (Tablet 25 mg) 1 tablet, 2x a day. Niacin Oral (Tablet 500 mg) 2 tablets, daily. 2 Clinical Report - Nurses [facility] Emergency Department [address] [place] [address] Phone #: ext- [phone] 04/01/2020 11:11 Patient: DIANA OLIVERA Sex: M : 1955 Age: 64yOxyCODONE HCl Oral 10 mg, q6h as needed, pain.Pravachol Oral (Tablet 20 mg) 1 tablet, daily at bedtime.Travatan Z Ophthalmic (Solution 0.004 %) 1 drop, in each eye daily.Vitamin, daily. --11:20 04/01/20 Julio Patel RN.AllergiesTAPE. --11:20 04/01/20 Julio Patel RN.PROBLEMS:Hyperglycemia.Cellulitis.Dehydration.Seizure.Ulcers on toes and legs.Osteoarthritis of Finger Joint.Degenerative hip disease.Degenerative Joint Disease.Osteomyelitis.Pneumonia.UTI - Urinary Tract Infection.Sleep Apnea.Rotator cuff syndrome.Sepsis (disorder).Hypomagnesemia.Diabetes Mellitus.Atrial Fibrillation.Hypertension.Hyperthyroidism.Hypercholestero lemia.Glaucoma.Heart Disease. --13:53 04/01/20 Krysta Griffith RN.ADDITIONAL SURGERIES:C6 Corpectomy and Fusion c5-c6 w/ fibular strut graft .Cardiac catherization.Melanoma removal 1998.Rotator Cuff Surgery.Stent placement 2015. --13:53 04/01/20 Krysta Griffith RNAmputation Lower Extremity (Left Great toe). --13:54 04/01/20 Krysta Griffith RNThe following entry was struck by Krysta Griffith RN, 13:54 04/01/20Amputation Lower Extremity. --23:08 03/03/19 Krysta Griffith RNThe following entry was struck by Krysta Griffith RN, 13:54 04/01/20 Reason - duplicateLeft big toe amputation . --22:07 12/24/16 Krysta Griffith RN. 3 Clinical Report - Nurses [facility] Emergency Department [address] [place] [address] Phone #: ext- [phone] 04/01/2020 11:11 Patient: DIANA OLIVERA Sex: M : 1955 Age: 64y History PAST MEDICAL HX: Immunizations: up-to-date. SOCIAL HX: Never smoker. Current every day heavy tobacco smoker (cigarette)- less than 1 pack per day. Occasional alcohol use; consumes beer occasionally. History of drug use: unable to obtain. The patient was offered HIV testing but declined and hepatitis C testing but declined. Unknown if he has traveled outside the [place] Infectious disease exposure: Screening unobtainable. The patient was exposed to MRSA. It is unknown if the patient has been exposed to Coronavirus. Patient is a known carrier of MRSA. SELF HARM ASSESSMENT: Self harm assessment was performed. Unable to assess the patient in regard to the question(s) "Have you recently felt down, depressed, or hopeless?", "Do you have thoughts of harming or killing yourself?", "Do you have a plan for harming or killing yourself?", "Have you recently had thoughts about harming or killing others?", "Do you have any dangerous items in your possession?", "Have you noticed less interest or ple asure in doing things?", "Are you here because you tried to hurt yourself?" and "Have you ever tried to hurt yourself before today?". ABUSE ASSESSMENT: No report of abuse. NUTRITIONAL RISK ASSESSMENT: The nutritional risk assessment revealed no deficiencies. LEARNING NEEDS ASSESSMENT: The learning needs assessment revealed no barriers. FALL RISK ASSESSMENT: Fall risk assessment completed. Risk factors identified include patient impairment of mobility. FUNCTIONAL ASSESSMENT: Functional assessment performed: requires assistance with the activities of daily living; uses walker. SKIN INTEGRITY ASSESSMENT: Skin integrity risk assessment completed. No skin integrity risk identified. --11:24 04/01/20 Julio Patel RN late entry - 11:24 04/01/20. SOCIAL HX: The patient has not traveled outside the [place] Infectious disease exposure: No infectious disease exposure. --17:39 04/01/20 Sonido Nicole R.N. Interventions To treatment room. --11:24 04/01/20 Julio Patel RN Advanced care plan. A copy is on the chart. (FULL CODE). --13:52 04/01/20 Krysta Griffith RN.PHYSICAL KEPMVSOBEJ48:25 04/01/20. To room via stretcher.GENERAL / NEURO / PSYCH: (lethargic). He is awake. The patient is disoriented. 4 Clinical Report - Nurses [facility] Emergency Department [address] [place] [address] Phone #: ext- [phone] 04/01/2020 11:11 [id number] Sex: M : 1955 Age: 64y HEENT: No facial asymmetry noted. RESPIRATORY: Respirations not labored. Chest nontender. CVS: Cardiac rhythm: normal sinus rhythm; (92). Capillary refill less than 2 seconds. Pulses within normal limits. GI / : Abdomen soft and nontender. EXTREMITIES: ( twitching upper extremities Foot drop boots on both feet, dressings to left ankle, right foot). SKIN: Skin is warm and dry. Skin rash on the chest, right arm, right foot, left arm and left foot. --11:33 04/01/20 Krysta Griffith RN EXTREMITIES: ( External fixation rods present right foot, dressing left lower leg removed, yellow drainage with small amount blood on Telfa, wound reddened). --14:11 04/01/20 Krysta Griffith RN.NURSING PROGRESS NOTES11:12 04/01/20. hall monitor, NIBP monitor and pulse oximeter placed on patient; nurse monitoring-Lead II; monitor alarms on. Head of bed elevated. Two patient identifiers checked. Call light placed inreach. Side rails up x 2. Bed placed in lowest position. Brakes of bed on. Patient ready for evaluation-ED physician notified. --11:33 04/01/20 Krysta Griffith RN 11:12 04/01/2020 Site #1 started via IV in the right antecubital space with an 18g angiocath, with aseptic technique and good blood return; one attempt. Saline lock flushed with 10 mL saline. --11:43 04/01/20 Krysta Griffith RN 11:25 04/01/20. Finger stick glucose: 218 mg/dL; ordered; performed by nurse; result shown to the ED physician. --11:56 04/01/20 Krysta Griffith RN 11:30 04/01/20. ( Twitching of upper extremities continue, eyes open to voice, answering questions, garbled speech). --11:57 04/01/20 Krysta Griffith RN 11:40 04/01/2020 Narcan (Naloxone HCl) IVP 0.4 mg given over 1 minute(s) via site #1. Allergies verified and confirmed 5 rights. IV patency established. IV site checked: no pain, redness, or swelling. IV flushed thoroughly pre- and post-medication administration. IVP given by RN. Information reviewed with patient including reason for taking this medication, signs of allergic reaction and precautions. Verbalizes understanding. --11:45 04/01/20 Krysta Griffith RN 11:40 04/01/2020 Started bag #1 1000 mL IV Fluids IV NS w/ bolus; bolus of 500 mL over 30 minute(s) then at 125 mL/hr over 4 hour(s) via site #1 via IV pump. Allergies verified and confirmed 5 rights. IV patency established. IV site checked: no pain, redness, or swelling. IV flushed thoroughly pre- and post-medication administration. Information reviewed with patient including reason for taking this medication, signs of allergic reaction and precautions. Verbalizes understanding. Completed per protocol. --11:46 04/01/20 Krysta Griffith RN EKG time: (11:17 04/01/2020). EKG was ordered, performed by a tech and shown to the ED physician. --11:54 04/01/20 Krysta Griffith RN 5 Clinical Report - Nurses [facility] Emergency Department [address] [place] [address] Phone #: ext- [phone] 04/01/2020 11:11 Patient: DIANA OLIVERA Sex: M : 1955 Age: 64y11:59 04/01/20. BP: 108/90. MAP: 96. HR: 105. RR: 23. O2 saturation: 99% on non- rebreather at 15liters/minute. Pain level now: 0/10. --11:59 04/01/20 Krysta Griffith RN11:45 04/01/20. ( Narcan given jerking of arms upper body more pronounced, Dr Ge notified, ordersgiven). --11:59 04/01/20 Krysta Griffith RN11:50 04/01/20. Patient ID band checked for patient name and birthdate: patient confirmed. Bloodsamples drawn by lab per protocol ; labeled in presence of the patient and sent to lab: rainbow set.--12:00 04/01/20 Krysta Griffith RN11:53 04/01/2020 Ativan (LORazepam) IVP 1 mg given diluted in NS 10mL over 2 minute(s) via site #1.Allergies verified and confirmed 5 rights. IV patency established. IV site checked: no pain, redness, orswelling. IV flushed thoroughly pre- and post-medication administration. IVP given by RN. Informationreviewed with patient including reason for taking this medication, signs of allergic reaction, precautions andsedative warning. Verbalizes understanding. --11:55 04/01/20 Krysta Griffith RN12:05 04/01/20. The patient is calm and resting quietly. ( Patient appears more relaxed, arm, upper bodyjerking improved,). --12:59 04/01/20 Krysta Griffith RN12:08 04/01/2020 Ativan IVP Response: no adverse reaction symptoms have improved. --12:57 04/01/20Krysta Griffith RN12:10 04/01/2020 IV Fluids IV NS w/ bolus via IV site #1 Rate Changed: bag #1 decreased to 125 mL/hrvia IV pump. Confirmed 5 Rights. IV patency established. IV site checked: no pain, redness, or swelling. IVflushed thoroughly. (IV NS bolus 500 ml completed). --12:48 04/01/20 Krysta Griffith RN12:30 04/01/20. The patient is calm and resting quietly. --13:03 04/01/20 Krysta Griffith RN12:40 04/01/2020 IV Fluids IV NS w/ bolus via IV site #1 Discontinued: bag #1 STOPPED. Total amountinfused: 700 mL. IV patency established. IV site checked: no pain, redness, or swelling. IV flushedthoroughly. --12:50 04/01/20 Krysta Griffith RN12:42 04/01/2020 Lasix IVP 40 mg given over 4 minute(s) via site #1. Allergies verified and confirmed 5ri ghts. IV patency established. IV site checked: no pain, redness, or swelling. IV flushed thoroughly pre-and post-medication administration. IVP given by RN. Information reviewed with patient including reasonfor taking this medication, signs of allergic reaction and precautions. Verbalizes understanding. --12:4704/01/20 Krysta Griffith RN12:48 04/01/2020 Started 4.5 gm of Zosyn (Piperacillin Sod-Tazobactam So) IVPB in bag #1 50 mL; at 100mL/hr over 30 minute(s) via site #1. via IV pump. Allergies verified and confirmed 5 rights. IV patencyestablished. IV site checked: no pain, redness, or swelling. IV flushed thoroughly pre- and post-medicationadministration. Information reviewed with patient including reason for taking this medication, signs ofallergic reaction and precautions. Verbalizes understanding. Completed per protocol. --12:56 04/01/20 6 Clinical Report - Nurses [facility] Emergency Department [address] [place] [address] Phone #: ext- [phone] 04/01/2020 11:11 Patient: DIANA OLIVERA Sex: M : 1955 Age: 64yDoris ERICA Griffith12:54 04/01/2020 Narcan (Naloxone HCl) IVP 0.4 mg given over 1 minute(s) via site #1. Allergies verifiedand confirmed 5 rights. IV patency established. IV site checked: no pain, redness, or swelling. IV flushedthoroughly pre- and post-medication administration. IVP given by RN. Information reviewed with patientincluding reason for taking this medication, signs of allergic reaction and precautions. Verbalizesunderstanding. --12:54 04/01/20 Krysta Griffith RN12:30 04/01/20. BP: 100/86. MAP: 90. HR: 94. RR: 23. O2 saturation: 96% on non-rebreather. Temp: 100F. Pain level now: 0/10. --13:03 04/01/20 Krysta Griffith RN12:45 04/01/20. BP: 86/46. MAP: 59. HR: 85. RR: 14. O2 saturation: 97% on non-rebreather. Pain levelnow: 0/10. --13:07 04/01/20 Kyrsta Griffith RN12:40 04/01/20. ( BP dropping, patient sleeping, snoring resp irations, pupils pinpoint, Dr Ge notified,).--13:07 04/01/20 Krysta Griffith RN12:48 04/01/20. BP: 81/49. MAP: 59. HR: 84. RR: 17. O2 saturation: 96% on non-rebreather. Pain levelnow: 0/10. --13:09 04/01/20 Krysta Griffith RN12:56 04/01/20. BP: 84/47. MAP: 59. HR: 83. RR: 12. O2 saturation: 95% on non- rebreather. Pain levelnow: 0/10. --13:12 04/01/20 Krysta Griffith RN13:00 04/01/20. BP: 90/48. MAP: 62. HR: 106. RR: 20. O2 saturation: 97% on nasal cannula at 2liters/minute. Pain level now: 0/10. --13:13 04/01/20 Krysta Griffith RN13:10 04/01/20. ( Patient lying on stretcher, flailing upper extre mities, moving on stretcher). --13: Krysta Griffith RN13:24 04/01/2020 Started bag #1 1000 mL IV Fluids NS; at 150 mL/hr over 4 hour(s) via site #1 via IVpump. Allergies verified and confirmed 5 rights. IV patency established. IV site checked: no pain, redness,or swelling. IV flushed thoroughly pre- and post-medication administration. Information reviewed withpatient including reason for taking this medication, signs of allergic reaction and precautions. Verbalizesunderstanding. Completed per protocol. --13:24 04/01/20 Krysta Griffith RN13:20 04/01/20. BP: 101/52. MAP: 68. HR: 90. RR: 21. O2 saturation: 97% on nasal cannula at 2liters/minute. Pain level now: 0/10. --13:25 04/01/20 Krysta Griffith RN13:25 04/01/20. ( Patient more alert, thought he was in [facility], told him he was at [facility]). --13:27 04/01/20 Krysta Griffith RN13:31 04/01/20. BP: 95/57. MAP: 69. HR: 92. RR: 22. O2 saturation: 91% on nasal cannula at 2liters/minute. Pain level now: 0/10. --13:31 04/01/20 Krysta Griffith RN 7 Clinical Report - Nurses [facility] Emergency Department [address] [place] [address] Phone #: ext- [phone] 04/01/2020 11:11 Patient: DIANA OLIVERA Sex: M : 1955 Age: 64y13:45 04/01/20. ( Arterial blood gas obtained by Respiratory therapist). --13:55 04/01/20 ERICA Malagon14:11 04/01/20. Reassessment after medication administered. No adverse reaction. Reassessment afterfluids administered. He is sleeping.RESPIRATORY: No respiratory distress.CVS: Cardiac rhythm: normal sinus rhythm; 1st degree AV block; (71). ( Hospitalist Wendi Suero into examine patient). --14:23 04/01/20 Krysta Griffith RN14:20 04/01/20. BP: 80/40. MAP: 53. HR: 71. RR: 14. O2 saturation: 94% on nasal cannula at 2liters/minute. Pain level now: 0/10. --14:24 04/01/20 Krysta Griffith RN15:00 04/01/20. Finger stick glucose: 283 mg/dL; ordered; performed by nurse; result shown to the EDphysician. The patient reports no complaints and he is calm and resting quietly.CVS: Cardiac rhythm: normal sinus rhythm; 1st degree AV block.SKIN: Skin is profusely diaphoretic. --15:17 04/01/20 Krysta Griffith RN15:10 04/01/20. Patient transported to [place] by stretcher with nurse and hydrographical technical officer. --15:18 04/01/20Krysta Griffith RNOxygen administered by nasal cannula at [address] monitor, NIBP monitor and pulse oximeterplaced on patient. Reassurance given. The patient reports no complaints and he is calm, resting quietlyand sleeping.RESPIRATORY: No respiratory distress. Patient waiting for admit bed. --16:07 04/01/20 Sonido Nicole R.N.14:30 04/01/20. BP: 80/45. MAP: 56. HR: 72. RR: 15. O2 saturation: 92% on nasal cannula at 3liters/minute. --16:17 04/01/20 Sonido Nicole R.N.14:45 04/01/20. BP: 82/47. MAP: 58. HR: 70. RR: 14. O2 saturation: 94% on nasal cannula at 3liters/minute. --16:17 04/01/20 Sonido Nicole R.N.15:00 04/01/20. BP: 91/69. MAP: 76. HR: 70. RR: 13. O2 saturation: 94% on nasal cannula at 3liters/minute. Temp: 97.1 F (temporal). --16:18 04/01/20 Sonido Nicole R.N.15:31 04/01/20. BP: 84/64. MAP: 70. HR: 72. RR: 22. O2 saturation: 93% on nasal cannula at 3liters/minute. --16:19 04/01/20 Sonido Nicole R.N.16:00 04/01/20. BP: 98/56. MAP: 70. HR: 69. RR: 17. O2 saturation: 93% on nasal cannula at 3liters/minute. --16:20 04/01/20 Sonido Nicole R.N.13:15 04/01/2020 Zosyn IVPB via IV site #1 Discontinued: bag #1 infused. Total amount infused: 50ml mL.IV patency established. IV site checked: no pain, redness, or swelling. IV flushed thoroughly. --17: Sonido Nicole R.N. 8 Clinical Report - Nurses [facility] Emergency Department [address] [place] [address] Phone #: [phone]- [phone] 04/01/2020 11:11 Patient: DIANA OLIVERA Sex: M : 1955 Age: 64y 17:10 04/01/2020 IV Fluids NS via IV site #1 Continued: upon transfer at the rate of 150 mL/hr. 800 mL remaining bag #2. IV patency established. IV site checked: no pain, redness, or swelling. IV flushed thoroughly. --17:38 04/01/20 Sonido Nicole R.N.DISPOSITION / DISCHARGE late entry - 17:00 04/01/20. Report was given to a nurse via a phone call. Report included information regarding patient's care, treatment, allergies and condition including: recent changes and anticipated changes, current and abnormal vital signs and abnormal labs. Report included treatment information regarding medications given or pending and home medications; type and amount of IV fluids and medications infusing and total volume infused. All questions were answered. Report was acknowledged and care was transferred. ([facility] ICU). --17:36 04/01/20 Sonido Nicole R.N. Departure time: late entry - 17:10 04/01/2020. Condition at departure: improved. Transferred to [facility]. Visit overview, summary of care (CCDA), Emtala forms and Face Sheet provided to EMS and transfer facility via paper and fax. Transported via stretcher by geological survey field assistant and EMS with monitor, IV, O2 and mask. --17:37 04/01/20 Sonido Nicole R.N. 17:10 04/01/20. BP: 90/47. MAP: 61. HR: 70. RR: 15. O2 saturation: 94% on nasal cannula at 3 liters/minute. Temp: 97.4 F (temporal). Pain level now: 0/10. --17:37 04/01/20 Sonido Nicole R.N.Locked/Released at 04/01/2020 17:40 by Sonido Nicole R.N. Name Value Range Interpretation Code Description Data Sanjuana rce(s) Supporting Document(s) ID Date Data Source [id number] 04/01/2020 11:15:00 AM EDT [facility] 1 Clinical Report - Physicians/Mid Levels [facility] Emergency Department [address] [place] [address] Phone #: ext- [phone] 04/01/2020 11:11 Patient: DIANA OLIVERA Sex: M : 1955 Age: 64y Time Seen: 11:17 04/01/2020; initial patient contact. Arrived- By ambulance. Historian- senior living nurse and records. Disposition decision: 13:11 04/01/2020.HISTORY OF PRESENT ILLNESS Chief Complaint: DECREASED MENTAL STATUS. The patient is described as having decreased responsiveness. This started just prior to arrival today and is now gone. It was gradual in onset and has been constant. custodial resident. No history of chronic dementia. No change in diabetic routine or alcohol recently. The patient has had weakness. No numbness or recent fall. He has had difficulty walking. Usually is alert and oriented X3. 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 Similar symptoms previously. None. Recent medical care: Not recently seen/assessed.REVIEW OF SYSTEMSNo fever, headache, head injury, dizziness or chest pain. No difficulty breathing, cough, sputumproduction, blurred vision or sore throat. No abdominal pain, nausea, diarrhea, black stools or difficultywith urination. No skin rash, joint pain, vomiting, bloody stools or back pain. All other systems reviewedand are negative.PAST HISTORYSee nurses notes. Problems: Degenerative hip disease. Degenerative Joint Disease. Osteomyelitis. Pneumonia. UTI - Urinary Tract Infection. Sleep Apnea. Rotator cuff syndrome. Sepsis (disorder). Hypomagnesemia. Diabetes Mellitus. Atrial Fibrillation. Hypertension. 2 Clinical Report - Physicians/Mid Levels [facility] Emergency Department [address] [place] [address] Phone #: ext- [phone] 04/01/2020 11:11 Patient: DIANA OLIVERA Sex: M : 1955 Age: 64y Hyperthyroidism. Hypercholesterolemia. Glaucoma. Heart Disease. Additional Surgeries: Amputation Lower Extremity. C6 Corpectomy and Fusion c5-c6 w/ fibular strut graft . Cardiac catherization. Left big toe amputation . Melanoma removal 1998. Rotator Cuff Surgery. Stent placement 2015. Medications: Aspirin Oral (Tablet Delayed Release 81 mg) 1 tablet, 2x a day. Blast anti microbial wound gel. DULoxetine HCl Oral (Capsule Delayed Release Particles 60 mg) 1 capsule, daily. FentaNYL Transdermal (Patch 72 Hour 50 mcg/hr) 1 patch, q3days. Fish Oil Oral 1200 mg, daily every AM. Gabapentin Oral (Tablet 800 mg), 4x a day. GlipiZIDE XL Oral (Tablet Extended Release 24 Hour 10 mg) 1 tablet, daily, last dose 01/15. HumuLIN N Subcutaneous (Suspension 100 unit/mL) 72 units dinner, daily every PM. HumuLIN N Subcutaneous 66 units, daily every AM. Lisinopril Oral (Tablet 5 mg) 1 tablet, daily. MetFORMIN HCl Oral (Tablet 1000 mg) 1 tablet, 2x a day. Metoprolol Tartrate Oral (Tablet 25 mg) 1 tablet, 2x a day. Niacin Oral (Tablet 500 mg) 2 tablets, daily. OxyCODONE HCl Oral 10 mg, q6h as needed, pain. Pravachol Oral (Tablet 20 mg) 1 tablet, daily at bedtime. Travatan Z Ophthalmic (Solution 0.004 %) 1 drop, in each eye daily. Vitamin, daily. Allergies: TAPE.SOCIAL HISTORYNever smoker. No alcohol use or drug use. Resides in a senior living.ADDITIONAL NOTESThe nursing notes have been reviewed with agreement regarding the chief complaint, HPI, ROS, PMH andpatient medications and allergies.PHYSICAL EXAMVital Signs: 04/01/2020 11:59 BP: 108/90. MAP: 96. HR: 105. RR: 23. O2 saturation: 99% on 3 Clinical Report - Physicians/Mid Levels [facility] Emergency Department [address] [place] [address] Phone #: ext- [phone] 04/01/2020 11:11 Patient: DIANA OLIVERA Sex: M : 1955 Age: 64y non-rebreather at 15 liters/minute. Pain level now: 0/10. 04/01/2020 11:20 BP: 98/59. MAP: 72. 04/01/2020 11:12 HR: 86. RR: 24. O2 saturation: 93% on room air. Temp: 99.5 F. Pain level now: 10. Have been reviewed. Oxygen saturation low. Appearance: Alert. No acute distress. Head: Head atraumatic. Eyes: Pupils equal, round and reactive to light. ENT: Normal ENT inspection. Airway intact. Moist mucous membranes. Pharynx normal. Neck: Normal inspection. Neck supple. CVS: Normal heart rate and rhythm. Heart sounds normal. Pulses normal. Respiratory: No respiratory distress. Mildly decreased air movement in the bases bilaterally. Painless inspiration. Mild crackles present in the bases bilaterally. Abdomen: Soft and nontender. No organomegaly. Back: Normal inspection. Skin: Skin warm and dry. Normal skin color. No rash. Normal skin turgor. Extremities: (pt had pinning of rt foot, pt has bandages on both feet w padding around lower legs). Neuro: Alert. Oriented X 3. Mood/affect normal. Speech normal. Cranial nerves normal (as tested). No motor deficit. No sensory deficit. Reflexes normal.LABS, X-RAYS, AND EKGEKG: No acute process. No acute ischemia. Normal sinus rhythm. Rate: 87/min. First-degreeatrioventricular block. Incomplete RBBB. Left axis deviation. Normal ST and T waves. EKGunchanged when compared with prior EKG. (02-21-20). The study has been interpreted contemporaneouslyby me. The EKG appears to be a good tracing. Interpretation time: 11:17 04/01/2020.Chest X-ray: Moderate congestive heart failure present. Infiltrate in the right lower lobe and left lowerlobe. Consistent with pneumonia. Views: AP (portable). The X-rays were interpreted by the radiologist.Interpretation time: 12:13 04/01/2020.Laboratory Tests: Laboratory tests have been ordered, with results reviewed and considered in themedical decision making process. CT LOWER EXT RT W/O CONT: (ILEANA: 04/01/2020 14:15) ( [facility] 04/01/2020 15:56) In Progress CT LOWER EXT RT W/O CONT Reason(s): recent foot surgery, r/o osteomyelitis TRANSPORTATION: S IV? IV?(Yes) O2? Oxygen?(No) Ro CMTS: CT right foot, W/O ABG: (ILEANA: 04/01/2020 13:50) ( [facility] 04/01/2020 14:04) Final results Test Result Flag Units (Reference) CHRISTIANA TEST POSITIVE A FiO2 3LPM SITE RADIAL LT pH 7.34 (7.34 - 7.44) pCO2 47.7 H mm/HG (35.0 - 45.0) pO2 57.2 L mm/HG (75.0 - 100) HCO3 25.2 meq/L (22.0 - 26.0) TCO2 26.7 meq/L (23.0 - 27.0) BASE EXCESS -0.9 (-2.0 - 2.0) O2 SAT 87.4 L % (95.0 - 98.0) 4 Clinical Report - Physicians/Mid Levels [facility] Emergency Department [address] [place] [address] Phone #: ext- [phone] 04/01/2020 11:11 Patient: DIANA OLIVERA [facility]#: [id number] Sex: M : 1955 Age: 64yUrinalysis: (ILEANA: 04/01/2020 12:05) ( [facility] 04/01/2020 13:02) Final results Test Result Flag Units (Reference) URINALYSIS URINALYSIS SOURCE R COLOR yellow (NORMAL: Yello CLARITY hazy (NORMAL: Clear SPEC GRAVITY 1.025 (1.001 - 1.030 pH 5 (5 - 9) GLUCOSE NORM (NORMAL: Negat BILIRUBIN NEG (NORMAL: Negat KETONE 5 A (NO RMAL: Negat PROTEIN 100 A (NORMAL: Negat NITRITE NEG (NORMAL: Negat BLOOD 25 A (NORMAL: Negat LEUK EST 25 (NORMAL: Negat UROBILINOGEN NOR (less than 1.0 MICROSCOPIC See Below WBC 1 - 3 (NORMAL: NONE RBC 1 - 3 (NORMAL: NONE EPITHELIAL FEW (NORMAL: NONE BACTERIA Trace (NORMAL: NONE MUCOUS 2+ A (NORMAL: NONE AMORPH SED 1+ (NORMAL: NONEBNP: (IELANA: 04/01/2020 11:20) ( [facility] 04/01/2020 12:07) Final results Test Result Flag Units (Reference) BNP 302 H PG/ML (0 - 125)CBC w Diff: (ILEANA: 04/01/2020 11:20) ( [facility] 04/01/2020 13:03) Final results Test Result Flag Units (Reference) CBC W/AUTOMATED DIFF COMPLETE BLOOD COUNT WBC 20.9 H 10/uL (4.2 - 11.0) RBC 4.93 10/uL (4.50 - 6.30) HEMOGLOBIN 13.5 L g/dL (14.0 - 16.0) HEMATOCRIT 42.9 % (41.0 - 51.0) MCV 87.0 fL (80.0 - 94.0) MCH 27.4 pg (27.0 - 34.0) MCHC 31.5 g/dL (31.0 - 36.0) RDW 14.7 % (11.5 - 14.8) PLATELETS 204 10/uL (150 - 450) MPV 10.1 fL (7.4 - 10.4) NEUT 88.2 H % (37.0 - 80.0) LYMPH 2.9 L % (25.0 - 40.0) MONO 8.0 % (3.0 - 8.0) EOS 0.0 % (0.0 - 7.0) BASO 0.4 % (0.0 - 2.0) %IG 0.5 H % (0.0 - 0.0) %NRBC 0.0 % (0.0 - 0.0) #NEUT 18.39 H 10/uL (2.00 - 6.90) #LYMPH 0.61 10/uL (0.60 - 3.40) #MONO 1.66 H 10/uL (0.00 - 0.90) #EOS 0.01 10/uL (0.00 - 0.70) #BASO 0.08 10/uL (0.00 - 0.20) #IG 0.11 H 10/uL (0.00 - 0.10) 5 Clinical Report - Physicians/Mid Levels [facility] Emergency Department [address] [place] [address] Phone #: [phone] 04/01/2020 11:11 Patient: DIANA OLIVERA Sex: M : 1955 Age: 64y #NRBC 0.00 10/uL (0.00 - 0.00) MANUAL DIFF SEE BELOW SEGS 73 % (37 - 80) BAND 11 H % (0 - 5) %LYMPH 10 L % (25 - 40) %MONO 6 % (3 - 8) RBC MORPH MORPH IS NORMALCMP: (ILEANA: 04/01/2020 11:20) ( MsgRcvd 04/01/2020 12:09) Final results Test Result Flag Units (Reference) COMPREHENSIVE METABOLIC PANEL COMPREHENSIVE METABOLIC PANEL SODIUM 137 mEq/L (134 - 153) POTASSIUM 5.3 H mEq/L (3.6 - 5.0) CHLORIDE 96 L mEq/L (98 - 107) CO2 28 MEQ/L (22 - 30) GLUCOSE 198 H MG/DL (65 - 110) BUN 49 H MG/DL (7 - 21) CREATININE 2.4 H MG/DL (0.7 - 1.5) BUN/CREAT 20 (8 - 27) TOTAL PROTEIN 7.1 G/DL (6.3 - 8.2) ALBUMIN 4.1 G/DL (3.9 - 5.0) GLOBULIN 3.0 GM/DL (2.4 - 3.2) A/G RATIO 1.4 (0.8 - 2.0) CALCIUM 9.4 MG/DL (8.4 - 10.2) TOTAL BILI <0.7 MG/DL (0.2 - 1.3) ALKALINE PHOS 70 U/L (38 - 126) SGOT/AST 22 U/L (5 - 40) SGPT/ALT 21 U/L (7 - 56) ANION GAP 13.0 mmol/L (8.0 - 16.0) AGE 64 yrs NON-AA GFR 29 mL/min AFR AMER GFR 35 mL/min Male GFR Interprentation 20-49 yrs >60 mL/min Lwskug22-38 yrs >56 mL/min Normal 60-69 yrs >49 mL/min Normal 70-79yrs>42 mL/min Normal 80 and above >35 mL/min Normal Female GFRInterpretation 20-39 yrs >60 mL/min Normal 40-49 yrs >58 mL/minNormal 50-59 yrs >51 mL/min Normal 60-69 yrs >45 mL/min Rwdmbj89-86 yrs >39 mL/min Normal 80 and above >32 mL/min NormalLipase: (ILEANA: 04/01/2020 11:20) ( MsgRcvd 04/01/2020 12:09) Final results Test Result Flag Units (Reference) LIPASE 12 L U/L (13 - 60)PT/PTT: (ILEANA: 04/01/2020 11:20) ( [facility] 04/01/2020 12:01) Final results Test Result Flag Units (Reference) PROTIME 13.3 SECONDS (11.0 - 15.5) INR 1.00 (0.93 - 1.23) PTT 33.7 SECONDS (24.8 - 36.7) \\BLDo\\INR INTERPRETATION\\BLDx\\ Therapeutic range for Coumadin andrelated oral anticoagulants. -International Normalized Ratio (INR): 2.0 - 3.0 for VenousThrombosis, Pulmonary Embolus, Tissue heart valves, Acute GA Atrial Fibrillation, Valvular heart diseaseand recurrent Systemic Embolism. -International Normalized Ratio (INR): 2.5 - 3.5 forMechanical Prosthetic valve.Troponin-T: (ILEANA: 04/01/2020 11:20) ( [facility] 04/01/2020 12:06) Final results 6 Clinical Report - Physicians/Mid Levels [facility] Emergency Department [address] [place] [address] Phone #: ext- [phone] 04/01/2020 11:11 Patient: DIANA OLIVERA Sex: M : 1955 Age: 64y Test Result Flag Units (Reference) TROPONIN T 0.02 NG/ML (0.00 - 0.10) TROPONIN T0.1 ng/ml Recommended as the clinical threshold value forTroponin T. Lactic Acid: (ILEANA: 04/01/2020 11:20) ( [facility] 04/01/2020 11:50) Final results Test Result Flag Units (Reference) LACTIC ACID 2.5 H MMOL/L (0.2 - 2.2) . Bedside Tests: Glucose: moderate hyperglycemia - 213 (performed at bedside). Note - Tests: (CT right foot w/o contrast report in; extensive; diffuse osteopenia, osteoporosis, poss ible infection cannot be excluded, no sts, no abscess).PROGRESS AND PROCEDURESCourse of Care: 12:47 04/01/20. workup all in except CBC; CXR shows PNA, CHF but BNP nml, soprobably aspiration PNA; pt responded very well to Narcan 0.4 mg IV here but was agitated and flailingarms all over so Ativan 1 mg iv given; now sleeping deeply, difficult to arouse, pupils pinpoint b/l andhypotensive; I believe he's still chronically overdosed on Opiates (he was taking Fentanyl 200 mgc patchplus oxycodone's PO); we'll try some narcan again 13:08 04/01/20. CBC in and high WBC w shift and bandemia, lactic slightly high, UA abnormal; so pt is probably septic on PNA and UTI; will treat accordingly; pt more awake post-narcan, so also chronically overdosed on opiate; will discuss w Wendi Grajeda, [facility] hospitalist, for admission 13:58 04/01/20. pt doing better, vitals nml, here now, situation explained to her, still full code 14:16 04/01/20. bandage LLE removed and examined and nml, no infection, healing fine; will do CT rt foot to r/o osteomyelitis 16:03 04/01/20. CT rt foot results in and reviewed w hospitalist, who will call [facility] for possible transfer, since we have no ortho and they did surgery to foot; pt much more alert, doing markedly better 16:13 04/01/20. Wendi Cali, [facility] hospitalist, called [facility] and spoke to Dr. Parson, hospitalist, who will accept pt for transfer. Critical care performed (90 minutes). Time is exclusive of separately billable procedures. Time includes: direct patient care, patient reassessment, coordination of patient care, interpretation of data (laboratory data, pulse oxi metry, chest xrays and prior electrocardiograms), medical consultation, family consultation regarding treatment decisions and documentation of patient care- see progress notes. Patient and daughter counseled in person regarding the patient's serious condition, test results, diagnosis and need for admission. Patient and daughter agrees with plan of care. Disposition: Benefits, risks and alternatives to transfer explained to patient. Transferred to [place] [id number] Clinical Report - Physicians/Mid Levels [facility] Emergency Department [address] [place] [address] Phone #: ext- [phone] 04/01/2020 11:11 Patient: DIANA OLIVERA Sex: M : 1955 [facility]: 64[facility] Surgical site infection (orthopedic) present prior to transfer. Summary of care (CCDA) provided to transport team and transfer facility via paper. Condition: stable.CLINICAL IMPRESSION Narcotic dependence (Fentanyl and oxycodone) (Over- sedation). Severe sepsis with altered mental status and acute respiratory failure and renal failure. No shock. Lobar pneumonia with hypoxemia and sepsis. Mild chronic renal insufficiency. Acute urinary tract infection with pyelonephritis. Acute Bandemia Rule out post-op Osteomyelitis right foot.(Electronically signed by Rigo Ge M.D. 04/01/2020 20:24) Name Value Range Interpretation Code Description Data Sanjuana rce(s) Supporting Document(s) ID Date Data Source [id number] 04/01/2020 11:15:00 AM EDT [facility] Addenda for DIANA OLIVERA VisitID: [id number] Date: 13:23JAYLON CUNNINGHAM MADE AWARE OF MED REC REQUEST(Electronically signed by Prem Sam - 04/01/2020 13:23) Name Value Range Interpretation Code Description Data Sanjuana rce(s) Supporting Document(s) ID Date Data Source [id number] 04/01/2020 02:02:00 PM EDT [facility] Name Value Range Interpretation Code Description Data Sanjuana rce(s) Supporting Document(s) CHRISTIANA TEST POSITIVE A [facility] FiO2 3LPM [facility] SITE RADIAL LT [facility] pH of Arterial blood 7.34 7.34 - 7.44 [facility] Carbon dioxide [Partial pressure] in Blood 47.7 mm/HG 35.0 - 45.0 H [facility] Oxygen [Partial pressure] in Blood 57.2 mm/HG 75.0 - 100 L [facility] Bicarbonate [Moles/volume] in Blood 25.2 meq/L 22.0 - 26.0 [facility] TCO2 26.7 meq/L 23.0 - 27.0 [facility] Base excess in Blood by calculation -0.9 -2.0 - 2.0 [facility] O2 SAT 87.4 % 95.0 - 98.0 L [facility] ital ID Date Data Source [id number] 04/06/2020 06:07:00 PM EDT [facility] Name Value Range Interpretation Code Description Data Sanjuana rce(s) Supporting Document(s) Bacteria identified in Blood by Culture [facility] NO GROWTH AFTER 5 DAYS ID Date Data Source [id number] 04/13/2020 09:50:00 AM EDT [facility] Name Value Range Interpretation Code Description Data Sanjuana rce(s) Supporting Document(s) CULTURE BLOOD [facility] _CULTURE BLOOD_ [place] [address] CLIA# [id number] SEE SCANNED REPORT{ PRELIM ID Date Data Source [id number] 04/01/2020 12:59:00 PM EDT [facility] Name Value Range Interpretation Code Description Data Sanjuana rce(s) Supporting Document(s) [facility] R [facility] yellow NORMAL: Yellow [facility] CLARITY hazy NORMAL: Clear [facility] Specific gravity of Urine by Test strip 1.025 1.001 - 1.030 [facility] pH 5 5 - 9 [facility] Glucose [Mass/volume] in Urine by Test strip NORM NORMAL: Negat dung [facility] Bilirubin.total [Presence] in Urine by Test strip NEG NORMAL: Negative [facility] Ketones [Presence] in Urine by Test strip 5 NORMAL: Negative A [facility] Protein [Mass/volume] in Urine by Test strip 100 NORMAL: Negat dung A [facility] Nitrite [Presence] in Urine by Test strip NEG NORMAL: Negative [facility] BLOOD 25 NORMAL: Negative [facility] Leukocyte esterase [Presence] in Urine by Test strip 25 SUSAN L: Negative [facility] Urobilinogen [Mass/volume] in Urine by Test strip NOR less ben n 1.0 mg/dL [facility] MICROSCOPIC See Below [facility] ital WBC 1 - 3 NORMAL: NONE SEEN [facility] Erythrocytes [#/volume] in Urine by Test strip 1 - 3 NORMAL: NON E SEEN [facility] EPITHELIAL FEW NORMAL: NONE SEEN [facility] Bacteria [Presence] in Urine sediment by Light microscopy Tr ilia NORMAL: NONE SEEN [facility] Mucus [Presence] in Urine sediment by Light microscopy 2+ NOR MAL: NONE SEEN [facility] Amorphous sediment [Presence] in Urine sediment by Light luis a roscopy 1+ NORMAL: NONE SEEN [facility] ID Date Data Source [id number] 04/04/2020 05:34:00 PM EDT [facility] Name Value Range Interpretation Code Description Data Sanjuana rce(s) Supporting Document(s) CULTURE URINE [facility] spital _CULTURE URINE_$$[id number]$$[id number]$$[id number]$$[id number]$$[id number]$$[id number]$$[id number]$$[id number]$$ [id number]$$[id number]$$[id number]$$[id number]$$[id number]$$[id number]$$[id number]$$[id number]$$[id number]$$[id number]$$ [id number] -- Continued on next page --Patient: JAROD Ross Order: [id number] Page 2Culture: CULTURE URINE Status: Final ==== -- Continued on next page --Patient: JAROD Ross Order: [id number] Page 2Culture: CULTURE URINE Status: Prelim =====$$[id number] DATE/TIME: 04/04/2020 16:06Culture: CULTURE URINE Status: FinalUrine Culture,Comprehensive: P1No growth in 36 - 48 hours. Previous result entered on 04/03/2020 12:14 ET No growth after 18-24 hours.P1 Test performed by: [facility] CLIA #: [id number] [address] [place] [address] [id number] [facility] [address]Medical Director : Abilio Ratliff MD NPI #:Lab Di anastacia : 04/03/20.1330.XMT.SENT REF 04/04/20.1734.XMT.SENT REF ID Date Data Source [id number] 04/13/2020 09:50:00 AM EDT [facility] Value Range Interpretation Code Description Data Sanjuana rce(s) Supporting Document(s) CULTURE BLOOD [facility] _CULTURE BLOOD_ TEST PERFORM ED AT [address] [address] CLIA# [id number] SEE SCANNED REPORT{ PRELIM ID Date Data Source [id number] 04/01/2020 12:09:00 PM EDT [facility] Value Range Interpretation Code Description Data Sanjuana rce(s) Supporting Document(s) Lipase [Enzymatic activity/volume] in Serum or Plasma 12 U/L 13 - 60 L [facility] ID Date Data Source [id number] 04/01/2020 12:09:00 PM EDT [facility] Name Value Range Interpretation Code Description Data Sanjuana rce(s) Supporting Document(s) COMPREHENSIVE METABOLIC PANEL [facility] COMPREHENSIVE METABOLIC PANEL Sodium [Moles/volume] in Serum or Plasma 137 mEq/L 134 - 153 [facility] Potassium [Moles/volume] in Serum or Plasma 5.3 mEq/L 3.6 - 5.0 H [facility] Chloride [Moles/volume] in Serum or Plasma 96 mEq/L 98 - 107 L [facility] Carbon dioxide, total [Moles/volume] in Serum or Plasma 28 MEQ/L 22 - 30 [facility] Glucose [Mass/volume] in Serum or Plasma 198 MG/DL 65 - 110 H [facility] BUN 49 MG/DL 7 - 21 H [facility] Creatinine [Mass/volume] in Serum or Plasma 2.4 MG/DL 0.7 - 1.5 H [facility] BUN/CREAT 20 8 - 27 [facility] al Protein [Mass/volume] in Serum or Plasma 7.1 G/DL 6.3 - 8.2 [facility] Albumin [Mass/volume] in Serum or Plasma 4.1 G/DL 3.9 - 5.0 [facility] Globulin [Mass/volume] in Serum by calculation 3.0 GM/DL 2.4 - 3.2 [facility] A/G RATIO 1.4 0.8 - 2.0 [facility] Calcium [Mass/volume] in Serum or Plasma 9.4 MG/DL 8.4 - 10.2 [facility] Bilirubin.total [Mass/volume] in Serum or Plasma <0.7 MG/DL 0.2 - 1.3 [facility] Alkaline phosphatase [Enzymatic activity/volume] in Serum or Plasma 70 U/L 38 - 126 [facility] Aspartate aminotransferase [Enzymatic activity/volume] in Serum or Plasma 22 U/L 5 - 40 [facility] Alanine aminotransferase [Enzymatic activity/volume] in Seru m or Plasma 21 U/L 7 - 56 [facility] Anion gap 3 in Serum or Plasma 13.0 mmol/L 8.0 - 16.0 [facility] AGE 64 [facility] 29 mL/min [facility] AFR AMER GFR 35 mL/min [facility] Male GFR In terprentation 20-49 yrs >60 mL/min Normal 50-59 yrs >56 mL/min Normal 60-69 yrs >49 mL/min Normal 70-79yrs >42 mL/min Normal 80 and above >35 mL/min Normal Female GFR Interpretation 20-39 yrs >60 mL/min Normal 40-49 yrs >58 mL/min Normal 50-59 yrs >51 mL/min Normal 60-69 yrs >45 mL/min Normal 70-79 yrs >39 mL/min Normal 80 and above >32 mL/min Normal ID Date Data Source [id number] 04/01/2020 12:07:00 PM EDT [facility] Name Value Range Interpretation Code Description Data Sanjuana rce(s) Supporting Document(s) BNP 302 PG/ML 0 - 125 [facility] ID Date Data Source [id number] 04/01/2020 12:06:00 PM EDT [facility] Name Value Range Interpretation Code Description Data Sanjuana rce(s) Supporting Document(s) TROPONIN T 0.02 NG/ML 0.00 - 0.10 [facility] TROPONIN T0.1 ng/ml Recommended as the c linical threshold value forTroponin T. ID Date Data Source [id number] 04/01/2020 12:01:00 PM EDT [facility] Name Value Range Interpretation Code Description Data Sanjuana rce(s) Supporting Document(s) Prothrombin time (PT) 13.3 SECONDS 11.0 - 15.5 [facility] INR in Platelet poor plasma by Coagulation assay 1.00 0.93 - 1. 23 [facility] aPTT in Blood by Coagulation assay 33.7 SECONDS 24.8 - 36.7 [facility] \\BLDo\\INR INTERPRETATION\\BLDx\\ Therapeutic range for Coumadin and related oral anticoagulants. - International Normalized Ratio (INR): 2.0 - 3.0 for Venous Thrombosis, Pulmonary Embolus, Tissue heart valves, Acute GA Atrial Fibrillation, Valvular heart disease and recurrent Systemic Embolism. - International Normalized Ratio (INR): 2.5 - 3.5 for Mechanical Prosthetic valve. ID Date Data Source [id number] 04/01/2020 11:50:00 AM EDT [facility] Name Value Range Interpretation Code Description Data Sanjuana rce(s) Supporting Document(s) Lactate [Moles/volume] in Serum or Plasma 2.5 MMOL/L 0.2 - 2.2 H [facility] ID Date Data Source [id number] 04/01/2020 01:02:00 PM EDT [facility] Name Value Range Interpretation Code Description Data Sanjuana rce(s) Supporting Document(s) CBC W/AUTOMATED DIFF [facility] COMPLETE BLOOD COUNT Leukocytes [#/volume] in Blood by Automated count 20.9 10^3/uL 4.2 - 11.0 H [facility] Erythrocytes [#/volume] in Blood by Automated count 4.93 10^6/uL 4. 50 - 6.30 [facility] Hemoglobin [Mass/volume] in Blood 13.5 g/dL 14.0 - 16.0 L [facility] Hematocrit [Volume Fraction] of Blood by Automated count 42.9 % 4 1.0 - 51.0 [facility] Erythrocyte mean corpuscular volume [Entitic volume] by Auto mated count 87.0 fL 80.0 - 94.0 [facility] Erythrocyte mean corpuscular hemoglobin [Entitic mass] by Automated count 27.4 pg 27.0 - 34.0 [facility] Erythrocyte mean corpuscular hemoglobin concentration [Mass/volume] by Automated count 31.5 g/dL 31.0 - 36.0 [facility] Erythrocyte distribution width [Ratio] by Automated count 14.7 % 11.5 - 14.8 [facility] Platelets [#/volume] in Blood by Automated count 204 10^3/uL 150 - 45 0 [facility] Platelet mean volume [Entitic volume] in Blood by Automated count 10.1 fL 7.4 - 10.4 [facility] Neutrophils/100 leukocytes in Blood by Automated count 88.2 % 37. 0 - 80.0 H [facility] Lymphocytes/100 leukocytes in Blood by Manual count 2.9 % 25.0 - 40.0 L [facility] Monocytes/100 leukocytes in Blood by Automated count 8.0 % 3.0 - 8.0 [facility] Eosinophils/100 leukocytes in Blood by Automated count 0.0 % 0.0 - 7.0 [facility] Basophils/100 leukocytes in Blood by Automated count 0.4 % 0.0 - 2.0 [facility] %IG 0.5 % 0.0 - 0.0 [facility] %NRBC 0.0 % 0.0 - 0.0 [facility] Neutrophils [#/volume] in Blood by Automated count 18.39 10^3/uL 2. 00 - 6.90 H [facility] Lymphocytes [#/volume] in Blood by Automated count 0.61 10^3/uL 0.60 - 3.40 [facility] Monocytes [#/volume] in Blood by Automated count 1.66 10^3/uL 0.00 - 0.90 H [facility] Eosinophils [#/volume] in Blood by Automated count 0.01 10^3/uL 0.00 - 0.70 [facility] Basophils [#/volume] in Blood by Automated count 0.08 10^3/uL 0.00 - 0.20 [facility] #IG 0.11 10^3/uL 0.00 - 0.10 H [facility] #NRBC 0.00 10^3/uL 0.00 - 0.00 [facility] MANUAL DIFF SEE BELOW [facility] ital Segmented neutrophils/100 leukocytes in Blood by Manual count 73 % 37 - 80 [facility] BAND 11 % 0 - 5 [facility] %LYMPH 10 % 25 - 40 L [facility] %MONO 6 % 3 - 8 [facility] RBC MORPH MORPH IS NORMAL [facility] ID Date Data Source [id number] 03/26/2020 12:20:00 PM EDT [facility] Name Value Range Interpretation Code Description Data Sanjuana rce(s) Supporting Document(s) Erythrocyte sedimentation rate by Westergren method 25 mm/hr 0 - 20 H [facility] SED RATE REENTER 25 [facility] ID Date Data Source [id number] 03/26/2020 08:48:00 AM EDT [facility] Name Value Range Interpretation Code Description Data Sanjuana rce(s) Supporting Document(s) C reactive protein [Mass/volume] in Serum or Plasma by High sensitivity method 33.73 MG/L 1.00 - 3.00 H [facility] CDC/S HS-CRP CUT-OFF: RELATIVE RISK: <1.0 mg/L Low 1.0 - 3.0 mg/L Average >3.0 mg/L High Optimally, the average of HS-CRP results repeated two weeks apart should be used for risk assessment. ID Date Data Source [id number] 03/26/2020 08:10:00 AM EDT [facility] Name Value Range Interpretation Code Description Data Sanjuana [facility](s) Supporting Document(s) COMPREHENSIVE METABOLIC PANEL [facility] COMPREHENSIVE METABOLIC PANEL Sodium [Moles/volume] in Serum or Plasma 140 mEq/L 134 - 153 [facility] Potassium [Moles/volume] in Serum or Plasma 4.7 mEq/L 3.6 - 5.0 [facility] Chloride [Moles/volume] in Serum or Plasma 101 mEq/L 98 - 107 [facility] Carbon dioxide, total [Moles/volume] in Serum or Plasma 32 MEQ/L 22 - 30 H [facility] Glucose [Mass/volume] in Serum or Plasma 70 MG/DL 65 - 110 [facility] BUN 27 MG/DL 7 - 21 H [facility] Creatinine [Mass/volume] in Serum or Plasma 0.8 MG/DL 0.7 - 1.5 [facility] BUN/CREAT 34 8 - 27 H [facility] Protein [Mass/volume] in Serum or Plasma 6.5 G/DL 6.3 - 8.2 [facility] Albumin [Mass/volume] in Serum or Plasma 3.7 G/DL 3.9 - 5.0 L [facility] Globulin [Mass/volume] in Serum by calculation 2.8 GM/DL 2.4 - 3.2 [facility] A/G RATIO 1.3 0.8 - 2.0 [facility] Calcium [Mass/volume] in Serum or Plasma 9.4 MG/DL 8.4 - 10.2 [facility] Bilirubin.total [Mass/volume] in Serum or Plasma <0.7 MG/DL 0.2 - 1.3 [facility] Alkaline phosphatase [Enzymatic activity/volume] in Serum or Plasma 71 U/L 38 - 126 [facility] Aspartate aminotransferase [Enzymatic activity/volume] in Serum or Plasma 18 U/L 5 - 40 [facility] Alanine aminotransferase [Enzymatic activity/volume] in Seru m or Plasma 18 U/L 7 - 56 [facility] Anion gap 3 in Serum or Plasma 7.0 mmol/L 8.0 - 16.0 L [facility] AGE 64 yrs [facility] NON-AA GFR >60 mL/min [facility] ital AFR AMER GFR >60 mL/min [facility] Male GFR In terprentation 20-49 yrs >60 mL/min Normal 50-59 yrs >56 mL/min Normal 60-69 yrs >49 mL/min Normal 70-79yrs >42 mL/min Normal 80 and above >35 mL/min Normal Female GFR Interpretation 20-39 yrs >60 mL/min Normal 40-49 yrs >58 mL/min Normal 50-59 yrs >51 mL/min Normal 60-69 yrs >45 mL/min Normal 70-79 yrs >39 mL/min Normal 80 and above >32 mL/min Normal ID Date Data Source [id number] 03/26/2020 07:52:00 AM EDT [facility] Name Value Range Interpretation Code Description Data Sanjuana rce(s) Supporting Document(s) CBC NO DIFF [facility] ital COMPLETE BLOOD COUNT Leukocytes [#/volume] in Blood by Automated count 9.0 10^3/uL 4.2 - 1 1.0 [facility] Erythrocytes [#/volume] in Blood by Automated count 4.46 10^6/uL 4. 50 - 6.30 L [facility] Hemoglobin [Mass/volume] in Blood 11.9 g/dL 14.0 - 16.0 L [facility] Hematocrit [Volume Fraction] of Blood by Automated count 39.4 % 4 1.0 - 51.0 L [facility] Erythrocyte mean corpuscular volume [Entitic volume] by Auto mated count 88.3 fL 80.0 - 94.0 [facility] Erythrocyte mean corpuscular hemoglobin [Entitic mass] by Automated count 26.7 pg 27.0 - 34.0 L [facility] Erythrocyte mean corpuscular hemoglobin concentration [Mass/volume] by Automated count 30.2 g/dL 31.0 - 36.0 L [facility] Erythrocyte distribution width [Ratio] by Automated count 14.8 % 11.5 - 14.8 [facility] Platelets [#/volume] in Blood by Automated count 179 10^3/uL 150 - 45 0 [facility] Platelet mean volume [Entitic volume] in Blood by Automated count 9.4 fL 7.4 - 10.4 [facility] ID Date Data Source [id number] 03/03/2020 07:46:00 PM EDT [facility] Name Value Range Interpretation Code Description Data Sanjuana rce(s) Supporting Document(s) Erythrocyte sedimentation rate by Westergren method 17 mm/hr 0 - 20 [facility] SED RATE REENTER 17 [facility] ID Date Data Source [id number] 03/03/2020 07:35:00 PM EDT [facility] Name Value Range Interpretation Code Description Data Sanjuana rce(s) Supporting Document(s) C reactive protein [Mass/volume] in Serum or Plasma by High sensitivity method 5.33 MG/L 1.00 - 3.00 H [facility] CDC/S HS-CRP CUT-OFF: RELATIVE RISK: <1.0 mg/L Low 1.0 - 3.0 mg/L Average >3.0 mg/L High Optimally, the average of HS-CRP results repeated two weeks apart should be used for risk assessment. ID Date Data Source [id number] 03/03/2020 07:21:00 PM EDT [facility] Name Value Range Interpretation Code Description Data Sanjuana rce(s) Supporting Document(s) CBC NO DIFF [facility] ital COMPLETE BLOOD COUNT Leukocytes [#/volume] in Blood by Automated count 7.4 10^3/uL 4.2 - 1 1.0 [facility] Erythrocytes [#/volume] in Blood by Automated count 4.62 10^6/uL 4. 50 - 6.30 [facility] Hemoglobin [Mass/volume] in Blood 12.4 g/dL 14.0 - 16.0 L [facility] Hematocrit [Volume Fraction] of Blood by Automated count 40.5 % 4 1.0 - 51.0 L [facility] Erythrocyte mean corpuscular volume [Entitic volume] by Auto mated count 87.7 fL 80.0 - 94.0 [facility] Erythrocyte mean corpuscular hemoglobin [Entitic mass] by Automated count 26.8 pg 27.0 - 34.0 L [facility] Erythrocyte mean corpuscular hemoglobin concentration [Mass/volume] by Automated count 30.6 g/dL 31.0 - 36.0 L [facility] Erythrocyte distribution width [Ratio] by Automated count 16.2 % 11.5 - 14.8 H [facility] Platelets [#/volume] in Blood by Automated count 201 10^3/uL 150 - 45 0 [facility] Platelet mean volume [Entitic volume] in Blood by Automated count 9.7 fL 7.4 - 10.4 [facility] Procedure Social History Code Duration Value Status Description Data Source(s ) Alcohol intake 09/12/2020 12:00:00 AM EST Current non-d jenny of alcohol (finding) completed Current non-drinker of alcohol (finding) [facility] Alcohol intake 09/11/2020 12:00:00 AM EST Ex-drinker (finding) comp leted Ex- drinker (finding) [facility] Tobacco use and exposure 09/11/2020 12:00:00 AM EST Never used co mpleted Never used [facility] Smoking 09/11/2020 12:00:00 AM EST Current some day smoker com pleted Current some day smoker [facility] Smoking 06/17/2020 12:00:00 AM EST Current Smoker completed Curre nt Smoker eCW1 ([facility]) Smoking 06/17/2020 12:00:00 AM EST Current Smoker completed Curre nt Smoker eCW1 ([facility]) Smoking 06/17/2020 12:00:00 AM EST Current Smoker completed Curre nt Smoker eCW1 ([facility]) Smoking 04/21/2020 12:00:00 AM EDT Current Smoker completed Curre nt Smoker eCW1 ([facility]ly [facility]) Vital Signs ID Date Data Source UNK Name Value Range Interpretation Code Description Data Source(s) Heart rate 65 /min 65 /min [facility] Respiratory rate 18 /min 18 /min [facility] Oxygen saturation in Arterial blood by Pulse oximetry 99 % 99 % [facility] Systolic blood pressure 118 mm[Hg] 118 mm[Hg] [facility] Diastolic blood pressure 66 mm[Hg] 66 mm[Hg] [facility] Body temperature 36.[address] [facility] Body height 182.9 cm 182.9 cm [facility] Body weight 79.198 kg 79.198 kg [facility] Body mass index (BMI) [Ratio] 23.68 kg/m2 23.68 kg/m2 [facility] Systolic blood pressure 93 mm[Hg] 93 mm[Hg] [facility] Diastolic blood pressure 64 mm[Hg] 64 mm[Hg] [facility] Heart rate 86 /min 86 /min [facility] Body temperature 36.[address] [facility] Respiratory rate 16 /min 16 /min [facility] Oxygen saturation in Arterial blood by Pulse oximetry 98 % 98 % [facility] Body height 180.3 cm 180.3 cm [facility] Body weight 80 kg 80 kg [facility] Body mass index (BMI) [Ratio] 24.60 kg/m2 24.60 kg/m2 [facility] Body weight 220 [lb_av] 220 [lb_av] W1 (Formerly [facility]) Body height 71 [in_i] 71 [in_i] W1 ([facility]) Body mass index (BMI) [Ratio] 30.68 kg/m2 30.68 kg/m2 W1 ([facility]) Systolic blood pressure 120 mm[Hg] 120 mm[Hg] e CW1 ([facility]) Diastolic blood pressure 78 mm[Hg] 78 mm[Hg] eCW1 ([facility]) ID Date Data Source [id number] 09/18/2020 04:20:[address] [facility] Name Value Range Interpretation Code Description Data Source(s) WEIGHT RECORDED 182.1 lb 182.1 lb [facility] Body height Measured 62 in 62 in [facility] TRANSFER FROM [facility] ID Date Data Source [id number] 09/11/2020 06:05:28 PM [facility] Name Value Range Interpretation Code Description Data Source(s) TRANSFER FROM [facility] ID Date Data Source [id number] 09/06/2020 10:16:17 AM [facility] Name Value Range Interpretation Code Description Data Source(s) WEIGHT RECORDED 178.00 pounds 178.00 pounds [facility] Height 72 Inches 072 Inches [facility] ID Date Data Source [id number] 08/31/2020 04:21:00 AM [facility] Name Value Range Interpretation Code Description Data Source(s) WEIGHT 80 kilos 80 kilos [facility] al HEIGHT 182.88 centimeters 182.88 centimeter [facility] WEIGHT 83 kilos 83 kilos [facility] HEIGHT 182.88 centimeters 182.88 centimeter [facility] WEIGHT 83.2 kilos 83.2 kilos [facility] al HEIGHT 182.88 centimeters 182.88 centimeter [facility] ID Date Data Source [id number] 07/20/2020 08:58:36 AM [facility] Name Value Range Interpretation Code Description Data Source(s) WEIGHT RECORDED 192.10 pounds 192.10 pounds [facility] Height 72 Inches 072 Inches [facility] WEIGHT RECORDED 198.00 pounds 198.00 pounds [facility] Height 72 Inches 072 Inches [facility] Patient Treatment Plan of Care Planned Activity Planned Date Details Description Data Source (s) vancomycin (VANCOCIN) 1250 mg in NaCl 0.9 % 261 mL (pr emix) 09/15/2020 12:00:[address] [facility] ospital doxycycline hyclate 100 MG Oral Capsule 09/14/2020 12:00:00 AM [facility] sodium chloride flush 0.9 % 10 mL 09/12/2020 07:26:24 AM [facility] sodium chloride flush 0.9 % 10 mL 09/12/2020 07:26:24 AM [facility] sodium chloride flush 0.9 % 10 mL 09/12/2020 07:26:20 AM [facility] dextrose 50 % IV solution 25 mL 09/12/2020 03:16:19 AM [facility] Glucagon 1 MG Injection 09/12/2020 03:16:19 AM [facility] Glucose 0.417 MG/MG Oral Gel 09/12/2020 03:16:19 AM [facility] albuterol (PROVENTIL HFA) inhaler 2 puff 09/12/2020 03:15:43 AM [facility] Docusate Sodium 100 MG Oral Capsule 09/12/2020 03:15:43 AM [facility] Dexamethasone 6 MG Oral Tablet 09/08/2020 12:00:00 AM [facility] 3 ML insulin detemir 100 UNT/ML Pen Injector 09/08/2020 12:00:00 AM [facility] vancomycin (VANCOCIN) 1 gram/200 mL IVPB 09/08/2020 12:00:00 AM [facility] 24 HR metoprolol succinate 50 MG Extended Release Oral Tablet 09/07/2020 12:00:00 AM [facility] albuterol HFA (VENTOLIN HFA) 90 mcg/actuation inhaler 09/07/2020 12:00:00 AM [facility] 200 ACTUAT Ipratropium [place] 0.017 MG/ACTUAT Metered Dose Inhaler 09/07/2020 12:00:00 AM [facility] Famotidine 20 MG Oral Tablet 09/07/2020 12:00:00 AM [facility] 60 ACTUAT formoterol fumarate 0.005 MG/A CTUAT / mometasone furoate 0.2 MG/ACTUAT Metered Dose Inhaler 09/07/2020 12:00:00 AM [facility] 3 ML Insulin, Aspart, Human 100 UNT/ML Pen Injector 09/07/19 12:00:00 AM [facility] Acetaminophen 325 MG Oral Tablet 09/07/2020 12:00:00 AM [facility] 150 ML Levofloxacin 5 MG/ML Injection 08/31/2020 12:00:00 AM EST [facility] Amiodarone hydrochloride 200 MG Oral Tablet 01/22/2020 12:00:00 AM [facility] 24 HR metoprolol succinate 50 MG Extended Release Oral Tablet 01/21/2020 12:00:00 AM [facility] ospital atorvastatin 80 MG Oral Tablet 01/21/2020 12:00:00 AM [facility] albuterol (PROVENTIL HFA;VENTOLIN HFA) 108 (90 Base) M CG/ACT inhaler 03/07/2019 12:00:00 AM [facility]spital Amlodipine 10 MG Oral Tablet 03/07/2019 12:00:00 AM [facility] 60 ACTUAT salmeterol 0.05 MG/ACTUAT Dry Powder Inhaler 03/07/2019 12:00:00 AM [facility]spital Lisinopril 20 MG Oral Tablet 03/07/2019 12:00:00 AM [facility] Metoprolol Tartrate 25 MG Oral Tablet [facility] Guaifenesin 20 MG/ML Oral Solution [facility] CHOLECALCIFEROL, VITAMIN D3, ORAL [facility] vancomycin/0.9 % sod chloride (vancomyci n in 0.9 % sodium chl) 1.25 gram/250 mL solution [facility]th [facility] Ceftazidime 1000 MG Injection [facility] 120 ACTUAT Albuterol 0.1 MG/ACTUAT / Ipr atropium [place] 0.02 MG/ACTUAT Metered Dose Inhaler [facility]th System Levofloxacin 750 MG Oral Tablet [facility] Amlodipine 10 MG Oral Tablet [facility] 24 HR metoprolol succinate 50 MG Extended Release Oral Tablet [facility]
--- NOTE | 2021-04-30 18:39 | HPEPDOC ---
[facility] Medical History & Physical Date of Admission Apr 30, 2021 Date of Service: Apr 30, 2021 History and Physical CHIEF COMPLAINT: " Sent by wound care doctor" HISTORY OF PRESENT ILLNESS: 65-year-old male with a past medical history as listed below was brought to the emergency room department for evaluation of his chronic lower extremity wounds. He reports on 04/27 when he was evaluated by his wound care nurse there was no purulent discharge order appreciated of his right foot wound. However, today there is purulent discharge as well as odor therefore and was evaluated by his wound care physician via telemedicine who recommended for him to come to the emergency room department for possible antibiotics. Patient has had surgeries to his feet (reports having Charcot's foot, peripheral vascular disease and longstanding diabetes). Left foot surgery sometime in 2007. He also had right lower extremity osteomyelitis and is status post right foot debridement on 01/04/2020 and right foot fusion on 01/08/2020. He reports he had a prolonged bedridden course until pins removed. In the emergency room department, his vital signs were unremarkable. His hemoglobin was 12.1. On chemistry he had a potassium of 5.2, and creatinine was 1.18. He had elevated ESR of 35 and C-reactive protein of 5.30. A vascular ultrasound was done which was negative for a DVT. An x-ray of the right foot was consistent with cellulitis. PAST MEDICAL HISTORY:. T2DM w/peripheral polyneuropathy CAD with stents in 2000 at [facility] Afib (non-valvular) previously on Eliquis, DC'd 2/2 retroperitoneal hematoma Hx of chronic anemia CLAUDIA non-compliant with CPAP CKD PVD s/p 4 stents placed in LE. COPD HFpEF w/EF (12/2019 echo) Hx of RLE osteomyelitis s/p right foot debridement on 01/03/20 and right foot fusion 01/08/20 MSSA bacteremia and afib with RVR at [facility] then transferred to [facility] 01-14-20 for stroke symptoms of right sided weakness and neglect. 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 Bilateral common and external iliac artery angioplasty and stent Left superficial femoral artery angioplasty and stenting Left 1st toe amputation C6-C7 corpectomy with fusion Cardiac stent x1 in 2001 Melanoma removal from left eyelid SOCIAL HISTORY: Resume smoking, 5 cigarettes/day once his . He denies drinking use of recreational drugs. FAMILY HISTORY: Father disease from cancer unable to provide details. ALLERGIES: Please see below. REVIEW OF SYSTEMS: 10 point review of system was negative except for what is noted in the HPI HOME MEDICATIONS: Please see below. PHYSICAL EXAMINATION: VITAL SIGNS: Please see below General: Lying in bed, no acute distress Head/Neck/Throat: Trachea midline, mucous membranes moist Eyes: Sclera anicteric, PERRLA Thorax: Normal respiratory effort on room air, lungs clear to auscultation bilaterally, no wheezes/rales/rhonchi Cardiovascular: Normal rate, regular rhythm, normal S1, S2; no S3, S4, rubs/gallops/murmurs Abdomen: Bowel sounds present, soft/nontender/nondistended Genitourinary: No CVA tenderness, no Wu in place Musculoskeletal: Moving all extremities, no edema Skin: Left leg/foot - 1st toe is amputated. Lesion of the 5th toe, no discharge appreciated. There is maceration of the left calf, no erythema or discharge appreciated. Wound appears clean. Right foot - medial aspect of the foot there is bony protuberance with an open draining lesion, erythema and induration is appreciated as well as warmth. Sacral region -erythema appreciated Neurologic: AAOx3, speech fluent and goal-directed, no focal deficits, grossly intact LABORATORY DATA: See below. IMAGING: Duplex, Ext,LOWER veins,unilat RIGHT FINDINGS: Ultrasound examination of the right lower extremity deep venous structures from the common femoral vein through the calf/ankle to include the peroneal, and tibial veins demonstrates normal compressibility flow and wave patterns in response to respiration and augmentation. There is no evidence for deep venous thrombosis. Contralateral CFV is patent and normal. IMPRESSION: No evidence for deep venous thrombosis. Foot, complete RIGHT FINDINGS: Extensive osteoarthritic degenerative changes primarily involving the ankle and midfoot again noted and relatively unchanged. No obvious acute fracture or dislocation. Lateral view best demonstrates significant soft tissue swelling and suggestions for small amounts of subcutaneous emphysema. IMPRESSION: Swelling suggest cellulitis. No obvious acute fracture or dislocation. No definite findings to suggest osteomyelitis although diagnosis cannot be excluded based on radiographic evaluation. Foot, complete RIGHT Lateral view shows marked pes planus with slight inversion of the plantar arch. There is moderate to mid foot osteoarthritic spurring. Diffuse osteopenia is noted. There is osteoarthritic spurring at the MTP joints of all five digits as well. There is Achilles calcaneal spurring. There appears to be bony ankylosis across the fourth and second metatarsal tarsal articulations and possibly incomplete bony ankylosis across the first tarsometatarsal articulation. Old pin tract is visible in the second metatarsal.No other abnormality. MICROBIOLOGY: Please see below. ASSESSMENT/PLAN: #Right foot cellulitis -Ceftriaxone and vancomycin. Cultures were sent from the emergency room department, will narrow antibiotics based on cultures. -Wound care consult to ensure no debridement is required #Chronic wound -We will obtain wound care consult. #Insulin-dependent diabetes mellitus -Diagnosed in 1997. Continue with ambulatory insulin regimen. Sliding scale, Accu-Cheks, and hypoglycemic protocol. #HFpEF -No signs of acute exacerbation. #COPD -Continue ambulatory DuoNebs #Paroxysmal atrial fibrillation -Presently was in sinus rhythm. Continue with metoprolol. He is on Eliquis 2.5 mg twice daily. #GERD -Continue with pantoprazole Vital Signs Vital Signs Date Time Temp Pulse Resp B/P (MAP) Pulse Ox O2 Delivery O2 Flow Rate FiO2 04/30/21 16:56 98.3 78 20 99 Room Air 04/30/21 16:49 127/68 (87) Laboratory Data Labs 24H Laboratory Tests 2 04/30/21 16:12: Immature Granulocyte % (Auto) 0.8, Neutrophils (%) (Auto) 72.8H, Lymphocytes (%) (Auto) 12.9L, Monocytes (%) (Auto) 12.0H, Eosinophils (%) (Auto) 0.7, Basophils (%) (Auto) 0.8, Neutrophils # (Auto) 5.6, Lymphocytes # (Auto) 1.0L, Monocytes # (Auto) 0.9H, Eosinophils # (Auto) 0.1, Basophils # (Auto) 0.1, Nucleated Red Blood Cells % (auto) 0.0, Erythrocyte Sedimentation Rate 35H, Anion Gap 2L, Glomerular Filtration Rate > 60.0, Calcium Level 9.5, C-Reactive Protein, Quantitative 5.30H CBC/BMP Laboratory Tests 04/30/21 16:12 Microbiology Microbiology 04/30/21 Blood Culture, Received Pending 04/30/21 Blood Culture, Received Pending Home Medications Scheduled Apixaban (Eliquis) 5 Mg Tablet, 5 MG PO BID Aspirin (Aspirin EC) 81 Mg Tablet.dr, 81 MG PO DAILY Atorvastatin Calcium (Atorvastatin Calcium) 80 Mg Tablet, 80 MG PO QHS Duloxetine Hcl (Duloxetine HCl) 60 Mg Capsule.dr, 60 MG PO DAILY Gabapentin (Gabapentin) 300 Mg Capsule, 600 MG PO TID Insulin Detemir (Levemir) 100 Unit/1 Ml Vial, 22 UNITS SC BID PT STATES USES SLIDING SCALE Insulin Human Lispro (Humalog) 100 Unit/1 Ml Vial, 1 DOSE SC ACHS PER SLIDING SCALE Latanoprost (Xalatan) 0.005% 2.5ML Drops, 1 DROP OU QHS Metoprolol Succinate (Metoprolol Succinate) 25 Mg Tab.er.24h, 25 MG PO DAILY Pantoprazole Sodium (Pantoprazole Sodium) 40 Mg Tablet.dr, 40 MG PO DAILY Salmeterol (Serevent Diskus) 50 Mcg Blst.w.dev, 1 PUFF INH BID fentaNYL (fentaNYL) 50 Mcg Patch.td72, 50 MCG TD Q3D APPLIED TO ABDOMEN Scheduled PRN Ipratropium/Albuterol Sulfate (Iprat-Albut 0.5-3(2.5) mg/3 ml) 3 Ml Ampul.neb, 1 VIAL NEB Q8H PRN for SOB/WHEEZING Allergies Coded Allergies: TAPE (Verified Allergy, Mild, RASH/BLISTERS, 08/15/19) A-FIB/CHADSVASC A-FIB History Current/History of A-Fib/PAF?: No FIOR SHEPPARD M.D. Apr 30, 2021 18:21
[2021-04-30] MEDS ORDERED: VANCOMYCIN HCL 0 MG in IV FLUID PLACE HOLDER 1 EA IV SCH (18:40)
--- OUTSIDE RECORDS SUMMARY | 2021-04-30 19:10 | CCD ---
Author Author [facility] Organization [facility] Address Unknown Phone Unavailable Care Team Providers Care Lockstitcher Name Role Phone WILFRID, F JOHNNY DO [...] Unavailable Unavailable Geraldine WALKER MD Unavailable Unavailable BLISSFRANKO MD Unavailable Unavailable BLISSFRANKO MD Unavailable Unavailable BLISS FRANKO MD Unavailable Unavailable BLISSFRANKO MD Unavailable Unavailable BLISS FRANKO MD Unavailable Unavailable BLISSFRANKO MD Unavailable Unavailable BLISSFRANKO MD Unavailable Unavailable BLISSFRANKO MD Unavailable Unavailable BLISSFRANKO MD Unavailable Unavailable BLISS, FRANKO MD Unavailable Unavailable BLISS FRANKO MD Unavailable Unavailable BLISS, FRANKO MD Unavailable Unavailable BLISS FRANKO MD Unavailable Unavailable BLISS FRANKO MD Unavailable Unavailable BLISS FRANKO MD Unavailable Unavailable BLISS FRANKO MD Unavailable Unavailable BLISS FRANKO MD Unavailable Unavailable BLISS, FRANKO MD Unavailable Unavailable BLISS, FRANKO MD Unavailable Unavailable BLISS, FRANKO MD Unavailable Unavailable BLISS FRANKO MD Unavailable Unavailable BLISS FRANKO MD Unavailable Unavailable BLISS FRANKO MD Unavailable Unavailable BLISS FRANKO MD Unavailable Unavailable BLISS, FRANKO MD Unavailable Unavailable BLISS, FRANKO MD Unavailable Unavailable BLISS, FRANKO MD Unavailable Unavailable BLISS, FRANKO MD Unavailable Unavailable BLISS, FRANKO MD Unavailable Unavailable BLISS, FRANKO MD Unavailable Unavailable BLISS, FRANKO MD Unavailable Unavailable BLISS, FRANKO MD Unavailable Unavailable BLISS FRANKO MD Unavailable Unavailable BLISS, FRANKO MD [...] Unavailable Unavailable FRANKO BLISS MD Unavailable Unavailable BLISSFRANKO JOSEPH MD Unavailable Unavailable BLISSFRANKO JOSEPH MD Unavailable Unavailable BLISSFRANKO JOSEPH MD Unavailable Unavailable BLISSFRANKO JOSEPH MD Unavailable Unavailable BLISSFRANKO JOSEPH MD Unavailable Unavailable BLISSFRANKO JOSEPH MD Unavailable Unavailable BLISSFRANKO JOSEPH MD Unavailable Unavailable BLISSFRANKO JOSEPH MD Unavailable Unavailable BLISSFRANKO JOSEPH MD Unavailable Unavailable BLISSFRANKO JOSEPH MD Unavailable Unavailable BLISSFRANKO JOSEPH MD Unavailable Unavailable BLISSFRANKO JOSEPH MD Unavailable Unavailable BLISSFRANKO JOSEPH MD Unavailable Unavailable BLISSFRANKO JOSEPH MD Unavailable Unavailable BLISSFRANKO JOSEPH MD Unavailable Unavailable BLISSFRANKO JOSEPH MD Unavailable Unavailable BLISSFRANKO JOSEPH MD Unavailable Unavailable BLISSFRANKO JOSEPH MD Unavailable Unavailable FRANKO BLISS MD Unavailable Unavailable FRANKO BLISS MD Unavailable Unavailable FRANKO BLISS MD Unavailable Unavailable FRANKO BLISS MD Unavailable Unavailable FRANKO BLISS MD Unavailable Unavailable FRANKO LBISS MD Unavailable Unavailable FRANKO BLISS MD Unavailable Unavailable ABBIE BECERRIL MD Unavailable [...] Unavailable Unavailable ABBIE BECERRIL MD Unavailable Unavailable Kunnumpuraariela, F Karina MD Unavailable Unavailable Kunnumpurath, F Karina MD Unavailable Unavailable Kunnumpurath, F Karina MD Unavailable Unavailable Kunnumpurath, F Karina Unavailable Unavailable Kunnumpurath, F Karina MD Unavailable Unavailable Kunnumpurath, F Karina Unavailable Unavailable Kunnumpurath, F Karina Unavailable Unavailable Kunnumpurath, F Karina Unavailable Unavailable Kunnumpurath, F Karina Unavailable Unavailable Kunnumpurath, F Karina MD Unavailable Unavailable Kunnumpurath, F Karina MD Unavailable Unavailable Kunnumpurath, F Karina MD Unavailable Unavailable Kunnumpurath, F Karina MD Unavailable Unavailable Kunnumpurath, F Karina Unavailable Unavailable Kunnumpurath, F Karina MD Unavailable [...] Unavailable Kunnumpurath, F Karina MD Unavailable Unavailable GIBBONS, RYAN OPERATIONS BUSINESS PARTNER Unavailable Unavailable GIBBONS, RYAN OPERATIONS BUSINESS PARTNER Unavailable Unavailable GIBBONS, RYAN OPERATIONS BUSINESS PARTNER Unavailable Unavailable Kunnumpurath, F Karina MD Unavailable [...] Unavailable Kunnumpurath, F Karina MD Unavailable Unavailable Katie, Alonzo Rg MD Unavailable Unavailable Katie, Alonzo Rg MD Unavailable Unavailable Katie, Alonzo Rg MD Unavailable Unavailable Katie, Alonzo Rg MD Unavailable Unavailable KatieAlonzo MD Unavailable Unavailable KatieAlonzo MD Unavailable Unavailable Katie, Alonzo Rg MD Unavailable Unavailable Katie, Alonzo Rg MD Unavailable Unavailable Katie, Alonzo Rg MD Unavailable Unavailable Katie, Alonzo Rg MD Unavailable Unavailable Katie, Alonzo Rg MD Unavailable Unavailable Katie, Alonzo Rg MD Unavailable Unavailable MINISTERIO, MADDI CARCAMO Unavailable Unavailable MINISTERIO, MADDI MD Unavailable Unavailable [...] MADDI MD Unavailable [facility]available [facility] [place] Unavailable Unavailable Michelle Falanga, A Wendi TRAVOGRAPH OPERATOR Unavailable Unavailable Michelle Falanga, A Wendi TRAVOGRAPH OPERATOR Unavailable Unavailable [place] Falanga, A Wendi TRAVOGRAPH OPERATOR Unavailable Unavailable Michelle Falanga, A Wendi TRAVOGRAPH OPERATOR Unavailable Unavailable Michelle Falanga, A Wendi TRAVOGRAPH OPERATOR Unavailable Unavailable Michelle Falanga, A Wendi TRAVOGRAPH OPERATOR Unavailable Unavailable [place] Falanga, A Wendi TRAVOGRAPH OPERATOR Unavailable Unavailable [place] Falanga, A Wendi TRAVOGRAPH OPERATOR Unavailable Unavailable Michelle Falanga, A Wendi TRAVOGRAPH OPERATOR Unavailable Unavailable [place] Falanga, A Wendi TRAVOGRAPH OPERATOR Unavailable Unavailable [place] Falanga, A Wendi TRAVOGRAPH OPERATOR Unavailable Unavailable Michelle Falanga, A Wendi TRAVOGRAPH OPERATOR Unavailable Unavailable [place] Falanga, A Wendi TRAVOGRAPH OPERATOR Unavailable Unavailable [place] Falanga, A Wendi TRAVOGRAPH OPERATOR Unavailable Unavailable Michelle Falanga, A Wendi TRAVOGRAPH OPERATOR Unavailable Unavailable Michelle Falanga, A Wendi TRAVOGRAPH OPERATOR Unavailable Unavailable [place] Falanga, A Wendi TRAVOGRAPH OPERATOR Unavailable Unavailable Michelle Falanga, A Wendi TRAVOGRAPH OPERATOR Unavailable Unavailable [place] Falanga, A Wendi TRAVOGRAPH OPERATOR Unavailable Unavailable [place] Falanga, A Wendi TRAVOGRAPH OPERATOR Unavailable Unavailable Michelle Falanga, A Wendi TRAVOGRAPH OPERATOR Unavailable Unavailable Michelle Falanga, A Wendi TRAVOGRAPH OPERATOR Unavailable Unavailable [place] Falanga, A Wendi TRAVOGRAPH OPERATOR Unavailable Unavailable Michelle Falanga, A Wendi TRAVOGRAPH OPERATOR Unavailable Unavailable Michelle Falanga, A Wendi TRAVOGRAPH OPERATOR Unavailable Unavailable Michelle Falanga, A Wendi TRAVOGRAPH OPERATOR Unavailable Unavailable [place] Falanga, A Wendi TRAVOGRAPH OPERATOR Unavailable Unavailable [place] Falanga, A Wendi TRAVOGRAPH OPERATOR Unavailable Unavailable [place] Falanga, A Wendi TRAVOGRAPH OPERATOR Unavailable Unavailable KAMLA LANIER MD Unavailable Unavailable TURRIN, RIGO Unavailable Unavailable [...] Suman FRANKS MD Unavailable Unavailable MAJAK, R MAHAMED DPM Unavailable [...] MAHAMED DPM Unavailable Unavailable Radha, B Adam OPERATIONS BUSINESS PARTNER Unavailable Unavailable Radha, B Adam OPERATIONS BUSINESS PARTNER Unavailable Unavailable Radha, B Adam OPERATIONS BUSINESS PARTNER Unavailable Unavailable Radha, B Adam OPERATIONS BUSINESS PARTNER Unavailable Unavailable Radha, B Adam OPERATIONS BUSINESS PARTNER Unavailable Unavailable Radha, B Adam OPERATIONS BUSINESS PARTNER Unavailable Unavailable Radha, B Adam OPERATIONS BUSINESS PARTNER Unavailable Unavailable Radha, B Adam OPERATIONS BUSINESS PARTNER Unavailable Unavailable Radha, B Adam OPERATIONS BUSINESS PARTNER Unavailable Unavailable Radha, B Adam OPERATIONS BUSINESS PARTNER Unavailable Unavailable KAMBHAMPATI DO, ADELA Unavailable Unavailable [...] Unavailable Unavailable ERMA ALVARES MD Unavailable Unavailable Talon DE LA TORRE MD Unavailable Unavailable ABBIE BECERRIL MD Unavailable [...] Unavailable Unavailable NAMASSIVACody MEADE MD Unavailable Unavailable NAMASSIVAYACody MD Unavailable Unavailable [...] Unavailable Unavailable NAMASSCody CABRERA MD Unavailable Unavailable NAMCody BELLAMY MD Unavailable Unavailable NAMASSCody CABRERA MD Unavailable [...] is protected by Article 27-F of the [place] Public [employer] law. If you continue you may have access to information: Regarding HIV / AIDS; Provided by facilities licensed or operated by the [place] Office of Mental Health; or Provided by the [place] [facility] Office for People With Developmental Disabilities. If such information is present, then the following [place] [facility] mandated warning applies: This information has been [...] law may result in a fine or skilled nursing sentence or both. A general authorization for the release of medical or other information is NOT sufficient authorization for further disc losure. Allergies and Adverse Reactions Type Description Substance Reaction Status Data Source(s ) No Known Drug Allergies No Known Drug Allergies [facility] Propensity to adverse reactions NO KNOWN ALLERGIES NO KNOWN ALLERGIES [facility] Propensity to adverse reactions NO ALLERGIES ON FILE NO ALLERGIES ON FILE [facility] Miscellaneous allergy ADHESIVE TAPE ADHESIVE TAPE [facility] Family History Family Member Name Family Member Gender Family Member Status Date o f Status Description Data Source(s) Unknown Female Problem [facility] ([facility] Encounters Encounter Providers Location Date Indications Data Source(s ) Outpatient Attender: FRANKO BLISS MDConsultant: Karina rivera MD 03/29/2021 01:21:00 PM EDT - 03/29/2021 01:21:00 PM EDT [facility] Outpatient Attender: Karina Mills MD 03/16/2021 12:30:00 PM EDT E11.9,I10,Z79.899 [facility] E11.9,I10,Z79.899 Outpatient Attender: Karina Mills MDConsultant: Karina mott MD 03/11/2021 02:41:00 PM EDT - 03/11/2021 02:41:00 PM EDT [facility] Unknown [address] [address] 02/09/2021 12:00:00 AM EDT eC ([facility]) Outpatient Attender: FRANKO BLISS MDConsultant: Karina rivera MD 10/08/2020 07:19:00 AM EDT - 10/08/2020 07:29:00 AM EDT [facility] Outpatient Attender: FRANKO BLISS MDConsultant: Karina rivera MD 09/29/2020 06:58:00 AM EDT - 09/29/2020 07:08:00 AM EDT [facility] Inpatient Attender: Adam HORNE ttender: JOHNNY YUEN DOConsultant: Karina Mills MD 09/23/2020 09:22:00 AM [facility] - 09/25/2020 12:10:00 PM [facility] Patient discharged. Outpatient Attender: Adam Garcia NP 03/2021 02:52:00 PM [facility] - 09/23/2020 09:22:00 AM [facility] Outpatient Attender: FRANKO BLISS MDConsultant: Karina rivera MD 09/22/2020 07:13:00 AM [facility] - 09/22/2020 07:23:00 AM [facility] Outpatient Attender: [facility] 09/22/2020 06:0 0:00 AM [facility] Outpatient Attender: FRANKO BLISS MDRef errer: FRANKO BLISS MDConsultant: Karina Mills MD 09/21/2020 08:40:00 PM [facility] 09/21/2020 08:50:00 PM [facility] Outpatient Attender: FRANKO BLISS MDConsultant: Karina rivera MD 09/18/2020 08:07:00 AM EST - 09/18/2020 08:17:00 AM EST [facility] Outpatient Attender: FRANKO BLISS MDConsultant: Karina rivera MD 09/17/2020 07:34:00 AM EST - 09/17/2020 07:44:00 AM [facility] Outpatient Referrer: RYAN GIBBONS NP 09/12/2020 12:00:00 A M [facility] EMERGENCY Attender: ADELA WELLER DO [id number] 09/11/2020 11:52:00 AM EST - 09/11/2020 08:00:00 PM EST [facility] Patient discharged. Inpatient Attender: Arcenio Wilson MDAt tender: NASIR FRANKS MDAdmitter: Arcenio Wilson MD [id number] 09/11/2020 12:00:00 AM EST - 09/14/2020 04:27:00 PM EST Cellulitis of left lower limb [facility] Cellulitis of left lower limb Patient discharged. INPATIENT Attender: Robert Avila MDAtten silvia: MADDI MANDEL MDAttender: RADHA DE LA TORRE MDAdmitter: RADHA DE LA TORRE MDConsultant: PROMISE AWAN MDConsultant: ERMA ALVARES MD [id number] 09/01/2020 01:25:00 PM EST - 09/07/2020 04:47:00 PM EST [facility] Patient discharged. Outpatient Referrer: [facility] 09/01/2020 11:50:0 0 AM EST [facility] pneumonia Inpatient Attender: Wendi truong FNPAttender: RIGO GEConsultant: Karina Mills MD 08/31/2020 12:0 8:00 PM EST - 09/01/2020 11:50:00 AM [facility] Patient discharged. Outpatient Attender: [facility] 08/31/2020 10:0 5:00 AM [facility] Emergency Attender: RIGO GE 2020 09:33:00 AM EST - 08/31/2020 12:08:00 PM [facility] Outpatient Attender: FRANKO BLISS MDConsultant: Karina rivera MD 08/30/2020 06:32:00 PM [facility] 08/30/2020 06:42:00 PM [facility] Outpatient Attender: FRANKO BLISS MDConsultant: Karina rivera MD 08/26/2020 08:31:00 AM [facility] 08/26/2020 08:41:00 AM [facility] Outpatient Attender: FRANKO BLISS MDConsultant: Karina rivera MD 08/25/2020 07:00:00 AM [facility] 08/25/2020 07:10:00 AM [facility] Inpatient Attender: ABBIE BECERRIL MDAttender: ABBIE BECERRIL MDAttender: KAMLA LANIER MDAttender: KAMLA LANIER MDAttender: TASNEEM WALKER MDAttender: TASNEEM WALKER MDAdmitter: TASNEEM WALKER MD [id number] 08/11/2020 02:20:00 AM [facility] 08/24/2020 03:59:00 PM [facility] Patient discharged. Outpatient Attender: [facility] 08/10/2020 07:0 0:00 PM [facility] Emergency Attender: RIGO GEConsultant: aKrina rivera MD 08/10/2020 06:53:00 PM [facility] 08/11/2020 12:26:00 AM [facility] Patient discharged. Outpatient Attender: FRANKO BLISS MDConsultant: Karina rivera MD 08/03/2020 01:47:00 PM [facility] 08/03/2020 01:57:00 PM [facility] Patient discharged. Outpatient Attender: FRANKO BLISS MDConsultant: Karina rivera MD 07/30/2020 07:28:00 AM [facility] 07/30/2020 07:38:00 AM [facility] Outpatient Attender: FRANKO BLISS MDConsultant: Karina rivera MD 07/27/2020 05:08:00 PM [facility] 07/27/2020 05:18:00 PM [facility] Outpatient Attender: FRANKO BLISS MDConsultant: Karina rivera MD 07/23/2020 03:54:00 PM [facility] - 07/23/2020 04:04:00 PM [facility] Outpatient Attender: FRANKO BLISS MDConsultant: Karina rivera MD 07/20/2020 07:42:00 PM [facility] - 07/20/2020 07:53:00 PM [facility] Outpatient Attender: FRANKO BLISS MDConsultant: Karina rivera MD 07/16/2020 06:48:00 AM [facility] - 07/16/2020 06:58:00 AM [facility] Outpatient Attender: [facility] 07/10/2020 06:4 5:00 AM [facility] Inpatient Attender: Wendi truong FNPAttender: RIGO GEConsultant: Karina Mills MD 07/07/2020 03:2 3:00 PM [facility] - 07/14/2020 04:45:00 PM [facility] Patient discharged. Outpatient Attender: [facility] 07/07/2020 11:4 8:00 AM [facility] Emergency Attender: RIGO GE 2019 11:35:00 AM [facility] 07/07/2020 03:23:00 PM [facility] Outpatient Attender: FRANKO BLISS MDConsultant: Karina rivera MD 07/02/2020 06:57:00 AM [facility] - 07/02/2020 07:07:00 AM [facility] Outpatient Attender: [facility]HAMED BO[facility] 06/16 01:45:00 PM EST [facility] ([facility] Outpatient Attender: FRANKO BLISS MDConsultant: Karina rivera MD 06/25/2020 07:13:00 AM [facility] - 06/25/2020 07:23:00 AM [facility] Outpatient Attender: FRANKO BLISS MDConsultant: Karina rivera MD 06/24/2020 05:39:00 PM [facility] - 06/24/2020 05:49:00 PM [facility] ([facility]) [facility] [address] [facility] [address] 06/17/2020 12:00:00 AM EST eCW1 ([facility]) Outpatient Attender: FRANKO BLISS MDConsultant: Karina rivera MD 06/04/2020 07:06:00 AM EST - 06/04/2020 07:16:00 AM EST [facility] TeleMedicine Phone E/M by Phys 11-[address] [place] [phone] 06/02/2020 12:00:00 AM EST eCW1 ([facility]) Outpatient Attender: FRANKO BLISS MDConsultant: Karina rivera MD 05/28/2020 09:56:00 AM EST - 05/28/2020 10:06:00 AM [facility] Outpatient Attender: FRANKO BLISS MDConsultant: Karina rivera MD 05/05/2020 07:31:00 AM EDT - 05/05/2020 07:41:00 AM EDT [facility] TeleMedicine Phone E/M by Phys 11-[address] [place] [phone] 04/21/2020 12:00:00 AM EDT eCW1 ([facility]) Outpatient Attender: MAHAMED BOYER [facility] Office 07/2019 10:00:00 AM EDT [facility] ([facility] Outpatient Attender: FRANKO BLISS MDConsultant: Karina rivera MD 04/09/2020 06:42:00 AM EDT - 04/09/2020 06:52:00 AM EDT [facility] Outpatient 04/01/2020 11:58:00 AM EDT [facility] Emergency Attender: RIGO GEConsultant: Karina rivera MD 04/01/2020 11:15:00 AM EDT - 04/01/2020 03:10:00 PM EDT [facility] Patient discharged. Outpatient Attender: FRANKO BLISS MDConsultant: Karina rivera MD 03/26/2020 06:42:00 AM EDT - 03/26/2020 06:52:00 AM EDT [facility] Office Visit Attender: MAHAMED BOYER [facility] Office 10/2019 10:45:00 AM EDT [facility] ([facility] [address] [place] [phone] 03/06/2020 12:00:00 AM EDT eCW1 ([facility]) Outpatient Attender: FRANKO BLISS MDConsultant: Karina rivera MD 03/03/2020 06:38:00 PM EDT - 03/03/2020 06:48:00 PM EDT [facility] Outpatient Attender: Jose Luis Gibbons MDRef errer: Jose Luis Gibbons MDConsultant: SPECIFIED NOT 06/20/2019 12:57:54 PM EST [facility] Immunizations Vaccine Date Status Description Data Source(s) COVID-19 VACCINE Pfizer 07/24/2020 12:00:00 AM EST completed [facility] Vaccine Series Complete: NOThis Data was Submitted to [facility] Via [employer] Direct. Medications Medication Brand Name Start Date Product [...] NEEDED FOR SHORTNESS OF BREATH SOLD: 02/04/2021 [employer] [facility] 33 gauge 02/02/2021 12:00:00 AM EDT [...] MOUTH THREE TIMES A DAY SOLD: 02/04/2021 [employer] vancomycin (VANCOCIN) 1250 mg in NaCl 0.9 % 261 mL (premix) 09/15/2020 12:00:00 AM EST 1250 mg Intravenous active 1,250 mg, Intravenous, Administer over 90 Minutes, Every 18 hours, First dose (after last reorder) on Mon09/15/20 at 0000, For 1 dose
Per Clinical RX Policy
[facility] Medication administered onsite Oxycodone Hydrochloride 5 MG Oral Tablet oxyCODONE (ROXICODONE) immediate release tablet 5 mg oxyCODONE (ROXICODONE) immediate release tablet 5 mg 09/14/2020 03:30:00 PM EST 5 mg Oral completed 5 mg, Oral, Once, Mon09/14/20 at 1530, For 1 dose
Oxycodone immediate release is limited to 10 mg per dose. Higher doses ( only) require Pain Service consultation and approval.
[facility] Medication administered onsite Oxycodone Hydrochloride 5 MG Oral Tablet oxyCODONE (ROXICODONE) immediate release tablet 5 mg oxyCODONE (ROXICODONE) immediate release tablet 5 mg 09/14/2020 02:15:00 AM EST 5 mg Oral completed 5 mg, Oral, Once, Mon09/14/20 at 0215, For 1 dose
Oxycodone immediate release is limited to 10 mg per dose. Higher doses ( only) require Pain Service consultation and approval.
[facility] Medication administered onsite doxycycline hyclate 100 MG Oral Capsule Doxycycline Hyclate 100 MG Oral Capsule (VIBRAMYCIN) Doxycycline Hyclate 100 MG Oral Capsule (VIBRAMYCIN) 0 09/14/2020 12:00:00 AM EST 100 mg Oral active Take 1 capsule by mouth Two Times Daily for [address] [facility] latanoprost 0.05 MG/ML Ophthalmic Soluti on latanoprost (XALATAN) 0.005 % ophthalmic solution 1 drop latanoprost (XALATAN) 0.005 % ophthalmic solution 1 drop 09/12/2020 10:00:00 PM EST 1 [drp] Both Eyes active 1 drop, Both Eyes, Nightly, First dose on 09/12/20 at 2200, For 30 days
Located in [facility] Medication administered onsite gabapentin 300 MG Oral Capsule gabapentin (NEURONTIN) capsule 300 mg gabapentin (NEURONTIN) capsule 300 mg 09/12/2020 09:00:00 AM EST 300 mg Oral active 300 mg, Oral, Three Times D aily Standard, First dose on 09/12/20 at 0900, For [address] [facility] Medication administered onsite atorvastatin 40 MG Oral Tablet atorvastatin (LIPITOR) tablet 80 mg atorvastatin (LIPITOR) tablet 80 mg 09/12/2020 09:00:00 AM EST 80 mg Oral active 80 mg, Oral, Daily Standard, First dose on 09/12/20 at 0900, For [address] [facility] Medication administered onsite 60 ACTUAT salmeterol 0.05 MG/ACTUAT Dry Powder Inhaler salmeterol (SEREVENT) diskus inhaler 1 puff salmeterol (SEREVENT) diskus inhaler 1 puff 09/12/2020 09:00:00 AM EST 1 {puff} Inhalation active 1 puff, Inhalation, 2 Times Daily, First dose on 09/12/20 at 0900, For [address] [facility] Medication administered onsite 24 HR metoprolol succinate 50 MG Extende d Release Oral Tablet metoprolol (TOPROL-XL) 24 hr tablet 50 mg metoprolol (TOPROL-XL) 24 hr tablet 50 mg 09/12/2020 09:00:00 AM EST 50 mg Oral active 50 mg, Oral, Daily Standard, First dose on 09/12/20 at 0900, For 30 days
Do not crush or chew
[facility] Medication administered onsite pantoprazole 40 MG Delayed Release Oral Tablet pantoprazole (PROTONIX) EC tablet 40 mg pantoprazole (PROTONIX) EC tablet 40 mg 09/12/2020 09:00:[address] 40 mg Oral active 40 mg, Ora l, Daily Standard, First dose on 09/12/20 at 0900, For 30 days
Do not crush or chew
[facility] Medication administered onsite POLYETHYLENE GLYCOL 3350 142 MG/ML Oral Solution polyethylene glycol (MIRALAX) packet 17 g polyethylene glycol (MIRALAX) packet 17 g 09/12/2020 0 9:00:00 AM EST 17 g Oral active 17 g, Or al, 2 Times Daily, First dose on 09/12/20 at 0900, For [address] [facility] Medication administered onsite Amlodipine 5 MG Oral Tablet amlodipine (NORVASC) table t 10 mg amlodipine (NORVASC) tablet 10 mg 09/12/2020 09:00:00 AM EST 10 mg Oral active 10 mg, Oral, Daily Standard, First dose on 09/12/20 at 0900, For [address] [facility] Medication administered onsite Aspirin 81 MG Delayed Release Oral Tablet aspirin EC E C tablet 81 mg aspirin EC EC tablet 81 mg 09/12/2020 09:00:00 AM EST 81 mg Oral ac tive 81 mg, Oral, Daily Standard, First dose on 09/12/20 at 0900, For [address] [facility] Medication administered onsite apixaban 5 MG Oral Tablet apixaban (ELIQUIS) tablet 2. 5 mg apixaban (ELIQUIS) tablet 2.5 mg 09/12/2020 09:00:00 AM EST 2.5 mg Oral acti ve 2.5 mg, Oral, 2 Times Daily, First dose on 09/12/20 at 0900, For [address] [facility] Medication administered onsite insulin lispro (HumaLOG) injection HIGH DOSE EATING IN SULIN patients 1-22 Units [id number] 09/12/2020 08:00:00 AM EST U Subcutaneous active 1-22 Units, Subcutaneous, Three Times Daily-With Meals, First dose on 09/12/20 at 0800, For 30 days
Nursing MUST open the 'SQ Insulin Dosing Charts' Sidebar Report, or, the Patient Summary or Summary Report within the ED.
[facility] [place] Medication administered onsite sodium chloride flush 0.9 [...] CM C-34 Central Lines.
[Order 2 End] [facility] [place] Medication administered onsite sodium chloride flush 0.9 [...] CM C-34 Central Lines.
[Order 2 End] [facility] [place] Medication administered onsite sodium chloride flush 0.9 [...] CM C-34 Central Lines.
[Order 2 End] [facility] [place] Medication administered onsite sodium chloride flush 0.9 % 10 mL [id number] 09/12/2020 07:26:20 AM EST 10 mL Intravenous active 10 mL, I ntravenous, PRN, After Parenteral Nutrition, Starting 09/12/20 at 0726, For 30 days
Flush line with 10 mL Sodium Chloride 0.9 % after Parenteral Nutrition (PN).
[facility] [place] Medication administered onsite vancomycin (VANCOCIN) 1250 mg in NaCl 0.9 % 261 mL (premix) 09/12/2020 05:00:00 AM EST 1250 mg Intravenous aborted 1,250 mg, Intravenous, Administer over 90 Minutes, Every 12 hours, First dose (after last reorder) on 09/12/20 at 0500, For 3 days
Per Clinical RX Policy
[facility] [place] Medication administered onsite Cefazolin 2000 MG Injection ceFAZolin (ANCEF) IVPB 2 g in dextrose (premix) ceFAZolin (ANCEF) IVPB 2 g in dextrose (premix) 09/12/2020 04:15:00 AM EST 2 g Intravenous active 2 g, Int ravenous, Administer over 30 Minutes, Every 8 hours, First dose (after last reorder) on 09/12/20 at 0415, For [address] [facility] [place] Medication administered onsite Insulin Glargine 100 UNT/ML [...] glucose more than 400 mg/dL: notify provider
[facility] [place] Medication administered onsite Glucose 0.417 MG/MG Oral Gel glucose (GLUTOSE) 40 % or al gel 15 g glucose (GLUTOSE) 40 % oral gel 15 g 09/12/2020 03:16:19 AM EST 15 g Oral active 15 g, Oral, PRN, Low blood s ugar, for gluose 55-69 mg/dl and able to take PO, Starting 09/12/20 at 0316, For [address] [facility] [place] Medication administered onsite dextrose 50 % IV solution 25 mL [id number] 09/12/2020 03:16:[address] 25 mL Intravenous active 25 mL, Intrav enous, PRN, Other, blood glucose <55, Starting 09/12/20 at 0316, For 30 days
Not for midline administration.
[facility] [place] Medication administered onsite Glucagon 1 MG Injection glucagon (human recombinant) ( GLUCAGEN) injection 1 mg glucagon (human recombinant) (GLUCAGEN) injection 1 mg 09/12/2020 03:16:19 AM EST 1 mg Intramuscular active 1 mg, Intramuscular, PRN, for glucose <55 without IV access, Starting 09/12/20 at 0316, For [address] [facility] [place] Medication administered onsite Docusate Sodium 100 MG Oral Capsule docusate sodium (C OLACE) capsule 100 mg docusate sodium (COLACE) capsule 100 mg 09/12/2020 03:15:43 AM EST 100 mg Oral active 100 mg, Oral, Daily PRN, Constipation, Starting 09/12/20 at 0315, For [address] [facility] [place] Medication administered onsite Oxycodone Hydrochloride 5 MG [...] only) require Pain Service consultation and approval.
[facility] [place] Medication administered onsite albuterol (PROVENTIL HFA) inhaler 2 puff [id number] 09/12/2020 03:15:43 AM EST 2 {puff} Inhalation active 2 pu ff, Inhalation, Every 6 hours PRN, Wheezing, Starting 09/12/20 at 0315, For 4 days
Shake the inhaler well before each spray.
[facility] [place] Medication administered onsite Baclofen 10 MG Oral Tablet baclofen (LIORESAL) tablet 10 mg baclofen (LIORESAL) tablet 10 mg 09/12/2020 03:15:43 AM EST 10 mg Oral activ e 10 mg, Oral, Three Times Daily-PRN, Muscle spasms, Starting 09/12/20 at 0315, For [address] [facility] [place] Medication administered onsite sodium chloride 0.9 % bolus 500 mL [id number] 09/12/2020 02:00:00 AM EST 500 mL Intravenous completed 500 mL, Intravenous, Once, 09/12/20 at 0200, For [address] [facility] [place] Medication administered onsite 3 ML insulin detemir 100 UNT/ML Pen Inje ctor insulin detemir (LEVEMIR) 100 unit/mL (3 mL) injection insulin detemir (LEVEMIR) 100 unit/mL (3 mL) injection 09/08/2020 12:00:00 AM EST 20 U subcutaneous active Inject 20 Units under the skin 1 (one) time each day. [facility] vancomycin (VANCOCIN) 1 gram/200 mL IVPB [id number] 09/08/2020 12:00:00 AM EST 1 g intravenous active lower respiratory in fection Infuse 200 mL (1 g total) into a venous catheter every 12 (twelve) hours for 7 days. [facility] lower respiratory infection Dexamethasone 6 MG Oral Tablet dexAMETHasone (DECADRON ) 6 mg tablet dexAMETHasone (DECADRON) 6 mg tablet 09/08/2020 12:00:00 AM EST 6 mg oral active Take 1 tablet (6 mg total) by mouth 1 (one) time each day for 2 doses. [facility] 60 ACTUAT formoterol fumarate 0.005 MG/A CTUAT / mometasone furoate 0.2 MG/ACTUAT Metered Dose Inhaler mometasone-formoterol (DULERA) 200-5 mcg/actuation inhaler mometasone-formoterol (DULERA) 200-5 mcg/actuation inhaler 09/07/2020 12:00:00 AM EST 2 {puff} inhalation active Inha le 2 puffs 2 (two) times a day. Rinse mouth with water after use to reduce aftertaste and incidence of candidiasis. Do not swallow. [facility] 3 ML Insulin, Aspart, Human 100 UNT/ML P en Injector insulin aspart (NovoLOG) 100 unit/mL (3 mL) injection insulin aspart (NovoLOG) 100 unit/mL (3 mL) injection 09/07/2020 12:00:00 AM EST U subcutaneous active Inject 0-10 Units under the skin 4 (four) times a day (before meals and nightly). [facility] Acetaminophen 325 MG Oral Tablet acetaminophen (TYLENO L) 325 mg tablet acetaminophen (TYLENOL) 325 mg tablet 09/07/2020 12:00:00 AM EST 65 0 mg oral active Take 2 tablets (650 mg total) by mouth every 6 (six) hours if needed for mild pain for up to 10 days. [facility] 24 HR metoprolol succinate 50 MG [...] SBP < 100 or HR < 60 [facility] albuterol HFA (VENTOLIN HFA) 90 mcg/actuation inhaler [id number] 09/07/2020 12:00:00 AM EST 2 {puff} inhalation active Inhale 2 puffs 3 (three) times a day. [facility] 200 ACTUAT Ipratropium [place] 0.017 MG/ ACTUAT Metered Dose Inhaler ipratropium bromide (ATROVENT HFA) 17 mcg/actuation inhaler ipratropium bromide (ATROVENT HFA) 17 mcg/actuation inhaler 09/07/2020 12:00:00 AM EST 2 {puff} inhalation active Inhale 2 puffs 3 (three) times a day. [facility] Famotidine 20 MG Oral Tablet famotidine (PEPCID) 20 mg tablet famotidine (PEPCID) 20 mg tablet 09/07/2020 12:00:00 AM EST 20 mg oral active Take 1 tablet (20 mg total) by mouth 2 (two) times a day. [facility] 150 ML Levofloxacin 5 MG/ML Injection le voFLOXacin (LEVAQUIN) 750 mg/150 mL IVPB levoFLOXacin (LEVAQUIN) 750 mg/150 mL IVPB 08/31/2020 12:00:[address] 750 mg intravenous aborted Infuse 750 mg into a venous catheter 1 (one) time each day. [facility] 500 mg 04/07/2020 12:00:00 AM EDT [...] then take 200mg by mouth twice daily [facility] [place] atorvastatin 80 MG Oral Tablet Atorvastatin Calcium 80 MG Oral Tablet (LIPITOR) Atorvastatin Calcium 80 MG Oral Tablet (LIPITOR) 01/21/2020 12:00:00 AM EDT 80 mg Oral active Take 1 tablet by mouth d [facility] 24 HR metoprolol succinate 50 MG Extende d Release Oral Tablet Metoprolol Succinate ER 50 MG Oral Tablet Extended Release 24 Hour (TOPROL-XL) Metoprolol Succinate ER 50 MG Oral Tablet Extended Release 24 Hour (TOPROL-XL) 01/21/2020 12:00:00 AM EDT 50 mg Oral active Take 1 t ablet by mouth daily [facility] [place] albuterol (PROVENTIL HFA;VENTOLIN HFA) 108 (90 Base) M CG/ACT inhaler [id number] 03/07/2019 12:00:00 AM EDT 2 {puff} Inhalation active Inhale 2 puffs into the lungs every 6 (six) hours as needed for Wheezing [facility] [place] 60 ACTUAT salmeterol 0.05 MG/ACTUAT Dry Powder Inhaler salmeterol (SEREVENT DISKUS) 50 MCG/DOSE diskus inhaler salmeterol (SEREVENT DISKUS) 50 MCG/DOSE diskus inhaler 03/07/2019 12:00:00 AM EDT 1 {puff} Inhalation active Inhale 1 puff into the lungs Two Times Daily [facility] [place] Lisinopril 20 MG Oral Tablet lisinopril (PRINIVIL,ZEST RIL) 20 MG tablet lisinopril (PRINIVIL,ZESTRIL) 20 MG tablet 03/07/2019 12:00:00 AM EDT 20 mg Oral active Take 1 tablet by man th daily [facility] [place] Amlodipine 10 MG Oral Tablet amlodipine (NORVASC) 10 M G tablet amlodipine (NORVASC) 10 MG tablet 03/07/2019 12:00:00 AM EDT 10 mg Oral active Take 1 tablet by mouth daily [facility] [place] Metoprolol Tartrate 25 MG Oral Tablet metoprolol (LOPR ESSOR) 25 MG tablet metoprolol (LOPRESSOR) 25 MG tablet 25 mg Oral ab orted Take 25 mg by mouth 2 (two) times daily. [facility] [place] Guaifenesin 20 MG/ML Oral Solution guaiFENesin (ROBITU SSIN) 100 mg/5 mL syrup guaiFENesin (ROBITUSSIN) 100 mg/5 mL syrup 200 mg oral aborted Take 200 mg by mouth every 4 (four) hours if needed for cough. [facility] 24 HR metoprolol succinate 50 MG Extende d Release Oral Tablet metoprolol succinate (TOPROL-XL) 50 mg 24 hr tablet metoprolol succinate (TOPROL-XL) 50 mg 24 hr tablet 50 mg oral aborted Shabbir e 50 mg by mouth 1 (one) time each day. Do not crush or chew. [facility] 120 ACTUAT Albuterol 0.1 MG/ACTUAT / Ipr atropium [place] 0.02 MG/ACTUAT Metered Dose Inhaler ipratropium-albuteroL (COMBIVENT RESPIMAT) 20-100 mcg/actuation inhaler ipratropium-albuteroL (COMBIVENT RESPIMAT) 20-100 mcg/ actuation inhaler 1 {puff} inhalation aborted Inhale 1 p uff 4 (four) times a day. [facility] Ceftazidime 1000 MG Injection cefTAZidime (FORTAZ) 1 g shola/50 mL piggyback IVPB cefTAZidime (FORTAZ) 1 gram/50 mL piggyback IVPB 1 g i ntravenous aborted Infuse 1 g into a venous cathete r every 8 (eight) hours. [facility] Amlodipine 10 MG Oral Tablet amLODIPine (NORVASC) 10 m g tablet amLODIPine (NORVASC) 10 mg tablet oral aborted Take by mouth 1 (one) time each day. [facility] Levofloxacin 750 MG Oral Tablet levoFLOXacin (LEVAQUIN ) 750 mg tablet levoFLOXacin (LEVAQUIN) 750 mg tablet oral aborte d Take by mouth. [facility] CHOLECALCIFEROL, VITAMIN D3, ORAL 1000 U oral aborted Take 1,000 Units by mouth 1 (one) time each day. [facility] vancomycin/0.9 % sod chloride (vancomyci n in 0.9 % sodium chl) 1.25 gram/250 mL solution [id number] 1250 mg intravenous aborted Infuse 1,250 mg into a venous catheter every 8 (eight) hours. [facility] Insurance Providers Payer name Policy type / Coverage type Policy ID Covered libertarian ID Covered libertarian's relationship to moss Policy Moss Plan Information MEDICARE A [id number] Self [id number] MEDICARE [id number] SP [id number] A MEDICARE A [id number] Self [id number] A MEDICARE Medicare [id number] MEDICARE Med [id number] Self [id number] MEDICAID [id number] SP [id number] [facility]MERLY [facility] [id number] SP [id number] [facility] MEDICARE COMPLETE G [id number] Self [id number] MEDICAID M [id number] Self [id number] MEDICARE COMPLETE [id number] SP [id number] [facility] MEDICARE [id number] Celine [id number] [facility] MEDICARE [id number] Celine [id number] EXCELLUS C [id number] Self [id number] [place] [id number] [place] [id number] Self [id number] MEDICAID M [id number] Self [id number] MEDICAID [place] [id number] Self [id number] [place]ICAID [place] [id number] MEDICARE C [id number] S [id number] EXCELLUS BCBS B [id number] S [id number] [employer]IELD -PHYSICIAN [id number] MEDICARE C [id number] S [id number] [employer] [place] BLUE [employer] [place] [id number] 18 [id number] BCBS [place] PPO 302/307 [id number] SP [id number] MEDICARE PART A -O/P [id number] 18 [id number] ANSI-Medicare Part B [id number] ANSI-Commercial [id number] ANSI-Medicare Part B [id number] ANSI-Medicare Part B [id number] ANSI-Medicare Part B [id number]-[id number] ANSI-Commercial [id number]-[id number] ANSI-Medicare Part B [id number] ANSI-Medicare Part B [id number] ANSI-Commercial [id number]-m23f-7977-md0u-[id number] [id number]-d89z-5515-rr1j-04665bidb85c ANSI-Medicare Part B [id number] ANSI-Medicare Part B [id number]-[id number]-dvnt-p2zp008r3ep2 ANSI-Commercial [id number]-[id number] k3477d7u-w9lh-[id number] ANSI-Medicare Part B [id number]-342y-02lu07fqb57k ANSI-Commercial y3o8rfot-953a-5ygl-q8zp-140lh74fd667 l3p2qlih-994s-1foe-e9yj-991nc84af566 ANSI-Medicare Part B [id number]-l2bh-0445-m52d-nl6c8tc3v82f ANSI-Medicare Part B [id number] x00kf03b-5x33-8h88-q296-6o65egd2o9e4 ANSI-Medicare Part B [id number] [id number]-[id number] ANSI-Commercial 8w1ar810-21y5-18s2-83t0-08n7249k5m25 4f3jg40[id number] ANSI-Commercial [id number]-p48d-8v5b6012pu31 4615v571-91a4-7f7z-g09h-8h1m2538yz25 ANSI-Medicare Part B [id number]-vtzj-7dy2-7hz7-ru9p21z93682 ANSI-Medicare Part B [id number] ud1d75yk-85xm-179a-7475-5n15hx9p5avl ANSI-Medicare Part B [id number]-[id number] t6n19d0n-6263-0u9c-g6l4-646u9f5035c7 ANSI-Medicare Part B [id number]-[id number] d86m20os-62sc-4ffr-z3l0-63c57702510v ANSI-Commercial 4s9zq328-9bv2-32t5-14b0-09347s0m3t90 4m9ts655-4ea3-56n3-31j5-31665m4t5b47 ANSI-Commercial b6172e21-1838-1060-c537-494x453j78y5 g9326o84-1852-7448-c166-793t337s46p0 ANSI-Medicare Part B [id number]-mo06-w7gibl8j22ic x834376a-h047-017f-od72-h6unjt2t62gx ANSI-Medicare Part B [id number]-jq38-crr56v508z02 10b7jfla-nin9-084y-jq94-hfj97o170z46 ANSI-Medicare Part B [id number]-54mp-[id number] 8254p22i-9k1e-59oo-s5j2-923149739og1 ANSI-Medicare Part B [id number]-4a6f-04xt-896a846z84c7 8045nh15-555z-8i7y-58iw-373a912r92l2 ANSI-Commercial c6l81m9h-h14k-757s-lo88-t9g06go1b2i4 k1q19k8l-r63a-015w-rs51-l0w91rp8j5g3 ANSI-Medicare Part B [id number]-2p7w-85p712df74y7 55v8u4x5-9633-419o-1e8n-19r475ec42w6 ANSI-Commercial [id number]-e231-9149-2na4-e2p80445vd33 5g4q059b-b171-8439-4fh2-i7b01181yy79 ANSI-Medicare Part B [id number]-d64h-[id number] 497a685t-8kc4-55ss-x69k-858c8768hb5g BCBS [place] PPO 302/307 [id number] SP [id number] ANSI-Medicare Part B [id number]-f0mx-h1j0wtu0wsb5 [id number]-156v-h0td-u8d5vsz6qis4 ANSI-Medicare Part B [id number]-9tkl-1811-b9v1oeqq636e cup8u886-45oi-7sjp-5272-r1p4ldzp267s ANSI-Commercial 3p667965-2864-0395-f381-j6596001g696 2j861401-4509-5782-f234-n3031105q327 ANSI-Medicare Part B [id number]-n4ua-40054q26en90 7j64yc60-8239-098r-p6vo-21820f92mv68 ANSI-Medicare Part B [id number]-33j0-[id number] n5pz4112-3630-340o-82e8-y93684f5o613 ANSI-Commercial o077ly3h-0788-614k-c96f-e6w3a8150115 e774mo9s-2802-552f-l83n-k1i7q0252726 ANSI-Commercial 7d8yr61r-w16z-09a0-09f7-89c097149995 0r8mg94f-a56g-93o9-38m6-97c007751841 ANSI-Medicare Part B [id number]-[id number] o465530w-ld78-37y3-o416-0t2081rt93o2 ANSI-Medicare Part B [id number]79p26876062 ANSI-Medicare Part B [id number]-v795-3w0fk809g22l yym728q6-l212-2290-d293-5z2go746v14n ANSI-Commercial 305t8v41-g4hj-7572-4iz7-6ya89k79jqg9 366d0t04-q4ht-2490-0ik3-9zb01l76zad7 ANSI-Medicare Part B [id number]84j x3q98sc3-9i41-2402-7qq3-39i2l13x319j ANSI-Commercial aa254952-5xv4-8u0m-nr1l-53sn78445249 ry227781-9py9-3u1l-hx5l-90ni65795566 ANSI-Medicare Part B [id number]-3a72-9528-126x1ng764xh 737g4164-8sax-5d91-7760-878q8ho314ah ANSI-Medicare Part B [id number]-dhj2-9vq4-g72l-116e5y5kj72s a8c0j131-tag5-3xh3-x76z-904q0j5gd28z [facility] MEDICARE O/P [id number] 18 [id number] ANSI-Medicare Part B [id number]-[id number]-2678-1f47-c773-9z76k262m081 ANSI-Commercial e55kyl36-470l-2y56-k9w8-64z1987s5701 p46nsa87-602w-2b88-n5p1-28v1131l1426 ANSI-Medicare Part B [id number]-3984-fo147b411225 3hj87014-4k21-276j-8733-iv978g593274 ANSI-Commercial 3sjtxc39-s660-044b-4556-47ab12c2c6o2 4wzgqt19-f938-631u-6567-20mk57n2w1g4 ANSI-Medicare Part B [id number]-245g-830o-vtkt-90x885q80h9q n5gy2s7n-542j-018t-mchz-18b918y88c8h ANSI-Medicare Part B [id number]-487u-70u1-c511-4f00v4o2b6j0 y2w95xmr-450e-81h7-x140-5i06o2p5s5w9 ANSI-Medicare Part B [id number]-5is9-e600-g6ru5rov0d3w h0203277-09mn-5bg5-e703-f7eg2zql5x6g ANSI-Commercial l538i554-5v11-6o92-m8pa-291577i09h6j n731c344-6k70-4e79-k0mu-649712s50d6c ANSI-Medicare Part B [id number]-c2a3-570559x76e23 8067263h-vfz8-5bu4-g5s2-774233h50k40 ANSI-Medicare Part B [id number]-459m-50e8-md39-2852r523zf02 40063o8o-243d-18n0-ly02-1909o617ag39 ANSI-Medicare Part B [id number]-dn15-28592cr6gi95 q7si8457-81l3-601q-rc74-37289nx5za13 ANSI-Commercial 79005y3g-3y8z-640r-v655-39115lu1fx05 21438u2a-5s0o-330t-s639-43838az3hz90 ANSI-Commercial 1512eh8v-lz14-1339-aq32-9g178he4anqq 5146jz4l-ph49-7807-rw07-3r832ro7pauf ANSI-Medicare Part B [id number]-skoe-1790-k958-83676hk1y1nk qjpwt7j8-btmv-1132-a537-42595bo2z9cq ANSI-Medicare Part B [id number]-6waq-942c-dz476w77h89a [id number]-g0tk-0szv-734c-tn965w70d61x ANSI-Commercial 4co3pe0m-257u-2up2-287p-d58s244xh67c 0rr3pt3f-216y-0te9-624t-h32l219yy72f ANSI-Medicare Part B [id number]-362k-d68u-[id number] x287dp87-ha7o-003l-w29v-f96362874l28 ANSI-Medicare Part B [id number]-m6f1-32x6-yfh6-a2587l0dd769 a21lb1f8-w6f0-28s5-ast0-m6540v5go498 ANSI-Commercial 44ra5426-1166-9362-2192-4b3800200x1e 93bo5519-2397-1666-2965-3w2639244b6e ANSI-Medicare Part B [id number]-5753-d9j8-4e5j47y8w551 val5a308-572s-5155-q6m8-2r7i71b3q980 ANSI-Medicare Part B [id number]-58b6-621f-4d92-5m15hg9g88bg 61d2b68r-07b0-766q-9t43-3h14vq5f35ps ANSI-Medicare Part B [id number]-e150ze3e4afc 29s4h811-2580-7aj9-803k-m151ei1e6pfi ANSI-Commercial 1uj82a75-140a-1064-c45s-yd2544668900 8wy37h39-408x-1617-i05f-gi0334564139 ANSI-Medicare Part B 62zu54us-99l8-0q09-y593-0o7ngq91j069 04vr42sx-27j2-0w94-g896-7u6ntl45u032 ANSI-Medicare Part B [id number]-72t5-rh85-32j4814m22v9 42883b22-436a-22v9-ee09-71l6841v25q9 ANSI-Medicare Part B bc2u6w91-b90z-2007-w396-588241026396 il3b2e59-f87o-9674-m166-127010259564 ANSI-Commercial x30a5e99-90xc-1021-wsf5-1o002125c5h5 j50f5b44-21mz-8197-ltz6-0e263184x8b5 ANSI-Commercial rr9klt52-6f4e-0e24-p61i-6811i358f273 wl0cgp18-1e4x-3v95-f97y-1897v363c168 ANSI-Medicare Part B 2006hu6t-o8iw-61r1-q7h0-858m1495e9bn 5779df1i-g1nx-71d8-q0l9-372t4651j0ay ANSI-Medicare Part B 18xg1wo6-5357-9v3a-z9ap-0l08s3xg5362 27uw9gt0-8612-4m4c-g4dw-1k07t2an0878 ANSI-Medicare Part B lts19dn1-83x8-4xfr-8r9u-92brg1la5jm7 lpn38ol8-58m9-6rwm-8p7z-88ipv1gu6am0 ANSI-Commercial k7ckw3ok-6yd9-3q17-236q-t28448034645 t0olx1qu-2kb1-2q23-828r-a14826065884 ANSI-Medicare Part B ek724q4e-5102-99gi-u040-62pz4x229r30 kg531z8n-8624-15di-y526-74vs7b131y60 ANSI-Medicare Part B 850p38l9-028e-060g-145o-iwjmb1a2pe93 958w71p1-666i-609c-569r-qamvd8j5gn49 ANSI-Commercial 101s73ki-1121-899n-r244-40x6j9k1p29q 633e18jc-8188-080o-r235-98u0v2x4i34r ANSI-Medicare Part B 34147x35-0u11-5r82-q243-mj1i26777o13 95084t31-8b55-5w86-y654-yc7e01205l79 ANSI-Medicare Part B 14468565-7k6u-7hg3-l3c8-712j3j2p7y4e 14370567-0h9j-7sk2-f6l3-871y6c3k1a8w ANSI-Medicare Part B mnt94o74-l986-97l3-730q-msw3q1bk7338 zrw82e21-r162-47j0-088k-wws1l9jc1711 ANSI-Medicare Part B w1979693-8458-67c7-83v8-o73ql63m689a g3650683-0485-47m0-80p5-i29hc32u679a ANSI-Medicare Part B 21755d99-pl77-244n-7b5t-0pd5688494z4 85699g21-dc46-074u-4y8r-4bh3489490t4 ANSI-Medicare Part B 36669508-452z-968x-wc40-11n10954825k 50991688-979z-157w-ta87-87b31483112c ANSI-Medicare Part B 42or6r1f-38v0-0y49-k0mo-27r75597qb8j 00mb6s3c-68y8-3m83-a0fc-92x29759yv3s ANSI-Medicare Part B 03555jq9-12ow-1902-4o15-h94b6h590faz 22082yx1-33jp-7612-8h90-v59v6g686xvk MEDICARE COMPLETE [id number] SP [id number] ANSI-Medicare Part B 3268ddw3-a0g9-19a2-56h9-910wi056y773 7217rgc0-r3t8-51q4-71v5-054vf272d568 ANSI-Medicare Part B e0x5j033-702p-4662-y7kk-y6ws7y231y2z b2z2w611-096j-9205-d6zt-b1rb4b728i9j ANSI-Medicare Part B 8a4z2qk0-fm54-33k6-z3yw-490mc767a4bu 2y5e7og9-fr90-54z2-l8le-025dn268y4bg ANSI-Medicare Part B 67371j19-649t-3c13-h9vi-43828237h479 70535i47-288f-8r73-w2aw-81789524b278 ANSI-Medicare Part B ps0a218w-09wm-52l0-o05k-1264107a1c91 ic6t314w-11ln-44b9-s95q-6490363d5w25 ANSI-Medicare Part B 9r017k96-3ttw-9dk8-l8j0-8474rq83y9z9 2s312r68-1jyv-0jf4-t0u7-5930nf82l6w5 ANSI-Medicare Part B 3ru22918-745u-9g43-qn6v-a02p2t1e8eom 0yj76854-516d-9q41-pf7c-l62c3r8f5wmt MEDICAID-O/P [id number] 18 [id number] R ANSI-Medicare Part B qgwq1803-72o6-6f85-9cp8-0qq7f2898808 blwa6985-28a4-5b36-7sg9-6cz7f4604236 ANSI-Medicare Part B 488845l5-wk93-6039-jw65-68288xrs0648 675675g1-bw73-8381-lq11-34938sby8589 ANSI-Medicare Part B u4716810-3u8q-4767-d61q-2902301j2pap k5974639-6p5c-3686-u74q-5566412e5pqp ANSI-Medicare Part B 76810s32-07y7-4ld2-5x56-870076u4u33z 31091j39-05a2-0pn0-7g17-283234y1n53k ANSI-Medicare Part B n951a18x-k42k-01no-n578-598do54ae1q0 y333j59u-w33l-89ak-r479-655ev20uc6r7 ANSI-Medicare Part B 46l518g5-fv00-43t9-8gyi-p0225fs4r11d 99m704s5-zb56-66s1-2fvs-y9390ed9z85s ANSI-Medicare Part B 7qf6013j-6t61-11e5-i5e6-w3r149qj1154 8hi1854x-3k00-29h6-q9k2-n9u020lt9586 ANSI-Medicare Part B 918j4948-rh5r-037e-t860-0hvc08k4z35d 417i2816-pw8m-206w-z183-7rjn41h8q43l ANSI-Medicare Part B 4c70s989-hy86-2few-kz08-fl443566tvlx 9w65y425-zn19-9blm-gu73-hk023171lxie ANSI-Medicare Part B 594j93um-3tr3-9e0p-5v97-723v209i09ul 313e01qs-7zu8-4i3x-8g08-036g545p90qo MEDICARE COMPLETE [id number] SP [id number] MEDICARE [id number] SP [id number] A MEDICARE COMPLETE-UHC O [id number] S [id number] [employer] MEDICARE [id number] 18 [id number] [employer] MEDICARE I/P [id number] 18 [id number] MEDICAID - O/P EMERGENCY ROOM [id number] 18 [id number] MEDICARE COMPLETE [id number] SP [id number] MEDICARE COMPLETE [id number] SP [id number] MEDICARE COMPLETE [id number] SP [id number] [facility] Medicare Commercial [id number] [facility] [id number] MEDICARE COMPLETE [id number] SP [id number] MEDICARE COMPLETE-UHC O [id number] S [id number] [employer] MEDICARE-O/P [id number] 18 [id number] [employer] MEDICARE -CLINIC [id number] 18 [id number] MEDICAID W [id number] S [id number] [facility] MEDICARE COMPLET O [id number] S [id number] MEDICARE JOEL O [id number] S [id number] MEDICAID-O/P [id number] 18 [id number] R [facility] [id number] SP [id number] [facility] MCARE COMPLETE O [id number] S [id number] MEDICAID W [id number] S [id number] MEDICAID-O/P [id number] 18 [id number] R MEDICAID-I/P [id number] 18 [id number] R [id number] [place] [id number] SP [id number] R [id number] A [employer] [place] PPO [id number] SP [id number] MEDICARE [id number] SP [id number] MEDICAID [facility] [id number] EXCELLUS Y BLUEIELD BS [id number] 18 [id number] MEDICARE PART A [facility] [id number] 18 [id number] BLUE CROSS BLUE SHIELD -O [id number] 18 [id number] MEDICARE PART A -O [id number] 18 [id number] MEDICARE PART A -O/P [id number] 18 [id number] BLUE CROSS BLUE SHIELD -O/P [id number] 18 [id number] BLUE CROSS BLUE SHIELD -I/P [id number] 18 [id number] MEDICARE PART A -I/P [id number] 18 [id number] [facility] [id number] S [id number] BLUE CROSS [id number] S [id number] MEDICARE [id number] S [id number] MEDICARE [id number] SP [id number] EXCELLUS BC-BS PPO 306 [id number] SP [id number] [place] [id number] SP [id number] [facility] [id number] S [id number] Problems, Conditions, and Diagnoses Code Display Name Description Problem Type Effective Dates Data Source(s) L95775 Other residential (current) drug therapy O ther residential (current) drug therapy Diagnosis 03/11/2021 02:41:00 PM EDT [facility] G8929 Other chronic pain Other chronic pain Diagnosis 02:41:00 PM EDT [facility] E785 Hyperlipidemia, unspecified Hyperlipidemia, unspecifie d Diagnosis 03/11/2021 02:41:00 PM EDT [facility] N189 Chronic kidney disease, unspecified Chronic kidn ey disease, unspecified Diagnosis 03/11/2021 02:41:00 PM EDT [facility] I129 Hypertensive chronic kidney disease with stage 1 through stage 4 chronic kidney disease, or unspecified chronic kidney disease Hypertensive chronic kidney disease with stage 1 through stage 4 chronic kidney disease, or unspecified chronic kidney disease Diagnosis 03/11/2021 02:41:00 PM ED T [facility] E119 Type 2 diabetes mellitus without complic ations Type 2 diabetes mellitus without complications Diagnosis 03/11/2021 02:41:00 PM EDT [facility] Q80570 Non-pressure chronic ulcer o f other part of left lower leg with unspecified severity Non-pressure chronic ulcer of other part of left lower leg with unspecified severity Diagnosis 03/11/2021 02:41:00 PM EDT [facility] J449 Chronic obstructive pulmonary disease, u nspecified Chronic obstructive pulmonary disease, unspecified Diagnosis 10/08/2020 07:19:00 AM [facility] I38 Endocarditis, valve unspecified Endocarditis, valve un specified Diagnosis 09/29/2020 06:58:00 AM EDT [facility] Z8616 PERSONAL HISTORY OF COVID-19 PERSONAL HISTORY OF COVID -19 Diagnosis 09/23/2020 09:22:00 AM [facility] I509 Heart failure, unspecified Heart failure, unspecified Diagnosis 09/23/2020 09:22:00 AM [facility] I110 Hypertensive heart disease with heart fa ilure Hypertensive heart disease with heart failure Diagnosis 09/23/2020 09:22:00 AM [facility] 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 Diagnosis 09/23/2020 09:22:00 AM [facility] I4891 Unspecified atrial fibrillation Unspecified atrial fib rillation Diagnosis 09/23/2020 09:22:00 AM [facility] E8342 Hypomagnesemia Hypomagnesemia Diagnosis 09/23/2020 09:22: 00 AM [facility] A24606 Type 2 diabetes mellitus with foot ulcer Type 2 diabetes mellitus with foot ulcer Diagnosis 09/23/2020 09:22:00 AM [facility] Z66 Do not resuscitate Do not resuscitate Diagnosis 09:22:00 AM [facility] J9622 Acute and chronic respiratory failure wi th hypercapnia Acute and chronic respiratory failure with hypercapnia Diagnosis 09/23/2020 09:22:00 AM [facility] G9341 Metabolic encephalopathy Metabolic encephalopathy Diag nosis 09/23/2020 09:22:00 AM [facility] R0902 Hypoxemia Hypoxemia Diagnosis 09/22/2020 02:52:00 PM [facility] E860 Dehydration Dehydration Diagnosis 09/22/2020 02:52:00 PM [facility] R4182 Altered mental status, unspecified Altered menta l status, unspecified Diagnosis 09/22/2020 02:52:00 PM [facility] M8610 Other acute osteomyelitis, unspecified s ite Other acute osteomyelitis, unspecified site Diagnosis 09/22/2020 07:13:00 AM [facility] I639 Cerebral infarction, unspecified Cerebral infarc tion, unspecified Diagnosis 09/21/2020 08:40:00 PM [facility] R531 Weakness Weakness Diagnosis 09/17/2020 07:34:00 AM [facility] L03.116 Cellulitis of left lower limb Cellulitis of left lower limb Diagnosis 09/12/2020 02:40:24 AM [facility] K59.00 Constipation, unspecified Constipation, unspecified Di agnosis 09/11/2020 09:29:00 PM [facility] U07.1 COVID-19 COVID-19 Diagnosis 09/11/2020 09:29:00 PM [facility] R foot with no pulse, cyanotic, with isidro e pain R foot with no pulse, cyanotic, with some pain Diagnosis 09/11/2020 09:29:00 PM [facility] R leg with no pulse, cyanotic, with some pain R leg with no pulse, cyanotic, with some pain Diagnosis 09/11/2020 04:02:55 PM [facility] I73.9 Peripheral vascular disease, unspecified Peripheral vascular disease, unspecified Diagnosis 09/11/2020 11:52:00 AM [facility] Unpalpable R pedal pulse Unpalpable R pedal pulse Diag nosis 09/11/2020 11:52:00 AM [facility] ems other ems other Diagnosis 09/11/2020 11:52:00 AM [facility] J96.90 Respiratory failure, unspeci fied, unspecified whether with hypoxia or hypercapnia Respiratory failure, unspecified, unspec ified whether with hypoxia or hypercapnia Diagnosis 09/01/2020 01:25:00 PM [facility] respiratory failure; pneumonia respiratory failure; pn eumonia Diagnosis 09/01/2020 01:25:00 PM [facility] pneumonia pneumonia Diagnosis 09/01/2020 11:50:00 AM [facility] D51402 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 limited to breakdown of skin Non-pressure chronic ulcer of other part of unspecified foot limited to breakdown of skin Diagnosis 08/31/2020 12:08:00 PM [facility] I10 Essential (primary) hypertension Essential (primary) h ypertension Diagnosis 08/31/2020 12:08:00 PM [facility] M1610 Unilateral primary osteoarthritis, unspe cified hip Unilateral primary osteoarthritis, unspecified hip Diagnosis 08/31/2020 12:08:00 PM [facility] E1140 Type 2 diabetes mellitus with diabetic n europathy, unspecified Type 2 diabetes mellitus with diabetic neuropathy, unspecified Diagnosis 08/31/2020 12:08:00 PM [facility] D649 Anemia, unspecified Anemia, unspecified Diagnosis 0 08/31/2020 12:08:00 PM [facility] J440 Chronic obstructive pulmonar y disease with (acute) lower respiratory infection Chronic obstructive pulmonary disease wi th (acute) lower respiratory infection Diagnosis 08/31/2020 12:08:00 PM [facility] J441 Chronic obstructive pulmonary disease wi th (acute) exacerbation Chronic obstructive pulmonary disease with (acute) exacerbation Diagnosis 08/31/2020 12:08:00 PM [facility] J9602 Acute respiratory failure with hypercapn ia Acute respiratory failure with hypercapnia Diagnosis 08/31/2020 12:08:00 PM [facility] J189 Pneumonia, unspecified organism Pneumonia, unspecified organism Diagnosis 08/31/2020 12:08:00 PM [facility] R112 Nausea with vomiting, unspecified Nausea with vo miting, unspecified Diagnosis 08/31/2020 09:33:00 AM [facility] Z118 Encounter for screening for other infect ious and parasitic diseases Encounter for screening for other infectious and parasitic diseases Diagnosis 08/26/2020 08:31:00 AM [facility] M869 Osteomyelitis, unspecified Osteomyelitis, unspecified Diagnosis 08/25/2020 07:00:00 AM [facility] T38.0X5A Adverse effect of glucocorti coids and synthetic analogues, initial encounter ADVERSE EFFECT OF GLUCOCORT/SYNTH ANALOG, INIT Diagnosis 08/11/2020 02:20:00 AM [facility] D72.829 Elevated white blood cell count, unspeci fied ELEVATED WHITE BLOOD CELL COUNT, UNSPECIFIED Diagnosis 08/11/2020 02:20:00 AM [facility] Z79.4 prison (current) use of insulin [facility] (CU RRENT) USE OF INSULIN Diagnosis 08/11/2020 02:20:00 AM [facility] J44.9 Chronic obstructive pulmonary disease, u nspecified CHRONIC OBSTRUCTIVE PULMONARY DISEASE, UNSPECIFIED Diagnosis 08/11/2020 02:20:00 AM [facility] K21.9 Gastro-esophageal reflux disease without esophagitis GASTRO-ESOPHAGEAL REFLUX DISEASE WITHOUT ESOPHAGIT Diagnosis 08/11/2020 02:20:00 AM [facility] H40.9 Unspecified glaucoma UNSPECIFIED GLAUCOMA Diagnosis 08/11/2020 02:20:00 AM [facility] R53.81 Other malaise OTHER MALAISE Diagnosis 08/11/2020 02:20:00 AM [facility] E55.9 Vitamin D deficiency, unspecified VITAMIN D DEFI CIENCY, UNSPECIFIED Diagnosis 08/11/2020 02:20:00 AM [facility] G89.29 Other chronic pain OTHER CHRONIC PAIN Diagnosis 02:20:00 AM [facility] Z79.01 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 I48.91 Unspecified atrial fibrillation UNSPECIFIED ATRI AL FIBRILLATION Diagnosis 08/11/2020 02:20:00 AM [facility] L03.116 Cellulitis of left lower limb CELLULITIS OF LEFT LOWER LIMB Diagnosis 08/11/2020 02:20:00 AM [facility] J12.82 PNEUMONIA DUE TO CORONAVIRUS DISEASE 201 9 PNEUMONIA DUE TO CORONAVIRUS DISEASE 2019 Diagnosis 08/11/2020 02:20:[address] [facility] U07.1 COVID-19 COVID-19 Diagnosis 08/11/2020 02:20:00 AM [facility] J96.01 Acute respiratory failure with hypoxia A CUTE RESPIRATORY FAILURE WITH HYPOXIA Diagnosis 08/11/2020 02:20:[address] 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 Diagnosis 08/10/2020 06:53:00 PM [facility] J1282 PNEUMONIA DUE TO CORONAVIRUS DISEASE 201 9 PNEUMONIA DUE TO CORONAVIRUS DISEASE 2019 Diagnosis 08/10/2020 06:53:00 PM [facility] J9601 Acute respiratory failure with hypoxia A cute respiratory failure with hypoxia Diagnosis 08/10/2020 06:53:00 PM [facility] U071 COVID-19 COVID-19 Diagnosis 08/10/2020 06:53:00 PM [facility] R0600 Dyspnea, unspecified Dyspnea, unspecified Diagnosis 08/10/2020 06:53:00 PM [facility] Z1152 Invalid ICD10 Description Invalid ICD10 Description Di agnosis 07/27/2020 05:08:00 PM [facility] Z1159 Encounter for screening for other viral diseases Encounter for screening for other viral diseases Diagnosis 07/20/2020 07:42:00 PM [facility] E875 Hyperkalemia Hyperkalemia Diagnosis 07/07/2020 03:23:00 P M [facility] A34887 Pressure ulcer of sacral region, stage 1 Pressure ulcer of sacral region, stage 1 Diagnosis 07/07/2020 03:23:00 PM [facility] B9729 Other coronavirus as the cause of diseas es classified elsewhere Other coronavirus as the cause of diseases classified elsewhere Diagnosis 07/07/2020 03:23:00 PM [facility] C45122 Non-pressure chronic ulcer o f other part of unspecified lower leg limited to breakdown of skin Non-pressure chronic ulcer of other part of unspecified lower leg limited to breakdown of skin Diagnosis 07/07/2020 03:23:00 P M [facility] E871 Hypo-osmolality and hyponatremia Hypo-osmolality and hyponatremia Diagnosis 07/07/2020 03:23:00 PM [facility] N179 Acute kidney failure, unspecified Acute kidney f ailure, unspecified Diagnosis 07/07/2020 03:23:00 PM [facility] A419 Sepsis, unspecified organism Sepsis, unspecified organ ism Diagnosis 07/07/2020 03:23:00 PM [facility] J1289 Other viral pneumonia Other viral pneumonia Diagnosis 07/07/2020 03:23:00 PM [facility] J9621 Acute and chronic respiratory failure wi th hypoxia Acute and chronic respiratory failure with hypoxia Diagnosis 07/07/2020 03:23:00 PM [facility] J181 Lobar pneumonia, unspecified organism Lo bar pneumonia, unspecified organism Diagnosis 07/07/2020 11:35:00 AM [facility] I5022 Chronic systolic (congestive) heart fail ure Chronic systolic (congestive) heart failure Diagnosis 07/07/2020 11:35:00 AM [facility] Z7982 termite treater helper (current) use of aspirin termite treater helper (cu rrent) use of aspirin Diagnosis 04/01/2020 11:15:00 AM EDT [facility] Y12730 Presence of other cardiac implants and g rafts Presence of other cardiac implants and grafts Diagnosis 04/01/2020 11:15:00 AM EDT [facility] N182 Chronic kidney disease, stage 2 (mild) C hronic kidney disease, stage 2 (mild) Diagnosis 04/01/2020 11:15:00 AM EDT [facility] N10 Acute pyelonephritis Acute pyelonephritis Diagnosis 04/01/2020 11:15:00 AM EDT [facility] J9600 Acute respiratory failure, u nspecified whether with hypoxia or hypercapnia Acute respiratory failure, unspecified whether with hy poxia or hypercapnia Diagnosis 04/01/2020 11:15:00 AM EDT [facility] R6520 Severe sepsis without septic shock Severe sepsis without septic shock Diagnosis 04/01/2020 11:15:00 AM EDT [facility] E7800 Pure hypercholesterolemia, unspecified P ure hypercholesterolemia, unspecified Diagnosis 04/01/2020 11:15:00 AM EDT [facility] E039 Hypothyroidism, unspecified Hypothyroidism, unspecifie d Diagnosis 04/01/2020 11:15:00 AM EDT [facility] A13946 Bandemia Bandemia Diagnosis 04/01/2020 11:15:00 AM ED T [facility] C44.41 [id number] Basal cell carcinoma of neck Problem 06/17/2020 12:00:00 AM EST [facility] L89.890 [id number] Pressure ulcer of left leg, unstageable P roblem 06/02/2020 12:00:00 AM EST [facility] ([facility]) Pressure ulcer of other site, stage 2 Pressure u lcer of other site, stage 2 Problem 04/23/2020 12:00:00 AM EDT [facility] ([facility] [id number] 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 Multiple complications due to type 1 diabetes mellitus Problem 04/23/20 20 12:00:00 AM EDT [facility] ([facility] Type 1 diabetes mellitus with diabetic n europathic arthropathy Type 1 diabetes mellitus with diabetic neuropathic arthropathy Problem 020 12:00:00 AM EDT [facility] Surgeries/Procedures Procedure Description Date Indications Data Source(s) Monitoring of Cardiac Electrical Activity, External Ap proach Monitoring of Cardiac Electrical Activity, External Approach 09/23/2020 12:00:00 AM [facility] POCT GLUCOSE, DOCKED <td>POCT GLUCOSE, DOCKED</td ><td>Routine</td><td>09/14/2020 11:52 AM EST</td><td></td><td> </td> 09/14/2020 11:52:00 AM [facility] VASC LAB US DOPPLER LOWER EXTREMITY BILATERAL VENOUS C OMP 72281 <td>[facility] LAB US DOPPLER LOWER EXTREMITY BILATERAL VENOUS COMP 25881</td><td>Routine</td><td>09/14/2020 9:03 AM EST</td><td></td><td></td> 09/14/2020 09:03:00 AM [facility] POCT GLUCOSE, DOCKED <td>POCT GLUCOSE, DOCKED</td ><td>Routine</td><td>09/14/2020 8:04 AM EST</td><td></td><td> </td> 09/14/2020 08:04:00 AM [facility] DRUG SCREEN QUALITATIVE VANCOMYCIN <td>VANCOMYCIN, TROUGH</td><td>Routine</td><td>09/14/2020 4:19 AM EST</td><td></td><td> </td> 09/14/2020 04:19:00 AM [facility] GLUCOSE QUANTITATIVE BLOOD XCPT REAGENT STRIP <td>POCT GLUCOSE, DOCKED</td><td>Routine</td><td>09/13/2020 9:32 PM EST</td><td></td><td> </td> 09/13/2020 09:32:00 PM [facility] GLUCOSE QUANTITATIVE BLOOD XCPT REAGENT STRIP <td>POCT GLUCOSE, DOCKED</td><td>Routine</td><td>09/13/2020 4:05 PM EST</td><td></td><td> </td> 09/13/2020 04:05:00 PM [facility] GLUCOSE QUANTITATIVE BLOOD XCPT REAGENT STRIP <td>POCT GLUCOSE, DOCKED</td><td>Routine</td><td>09/13/2020 12:06 PM EST</td><td></td><td> </td> 09/13/2020 12:06:00 PM [facility] COVID-19 PCR <td>COVID-19 PCR</td><td>Rou yamilet</td><td>09/13/2020 11:33 AM EST</td><td></td><td> </td> 09/13/2020 11:33:00 AM [facility] COVID-19 IGG AB <td>COVID-19 IGG AB</td><td> Routine</td><td>09/13/2020 11:33 AM EST</td><td></td><td> </td> 09/13/2020 11:33:00 AM [facility] GLUCOSE QUANTITATIVE BLOOD XCPT REAGENT STRIP <td>POCT GLUCOSE, DOCKED</td><td>Routine</td><td>09/13/2020 7:42 AM EST</td><td></td><td> </td> 09/13/2020 07:42:00 AM [facility] BLOOD COUNT COMPLETE AUTO&AUTO DIFRNTL WBC COUNT <td>C BC AND DIFFERENTIAL</td><td>Routine</td><td>09/13/2020 4:18 AM EST</td><td></td><td> </td> 09/13/2020 04:18:00 AM [facility] PHOSPHORUS INORGANIC <td>PHOSPHORUS LEVEL</td><td >Routine</td><td>09/13/2020 4:18 AM EST</td><td></td><td> </td> 09/13/2020 04:18:00 AM [facility] MAGNESIUM <td>MAGNESIUM LEVEL</td><td> Routine</td><td>09/13/2020 4:18 AM EST</td><td></td><td> </td> 09/13/2020 04:18:00 AM [facility] COMPREHENSIVE METABOLIC PANEL <td>COMPREHENSIVE METABO LIC PANEL</td><td>Routine</td><td>09/13/2020 4:18 AM EST</td><td></td><td> </td> 09/13/2020 04:18:00 AM [facility] GLUCOSE QUANTITATIVE BLOOD XCPT REAGENT STRIP <td>POCT GLUCOSE, DOCKED</td><td>Routine</td><td>09/12/2020 9:28 PM EST</td><td></td><td> </td> 09/12/2020 09:28:00 PM [facility] GLUCOSE QUANTITATIVE BLOOD XCPT REAGENT STRIP <td>POCT GLUCOSE, DOCKED</td><td>Routine</td><td>09/12/2020 4:20 PM EST</td><td></td><td> </td> 09/12/2020 04:20:00 PM [facility] GLUCOSE QUANTITATIVE BLOOD XCPT REAGENT STRIP <td>POCT GLUCOSE, DOCKED</td><td>Routine</td><td>09/12/2020 11:42 AM EST</td><td></td><td> </td> 09/12/2020 11:42:00 AM [facility] URNLS DIP STICK/TABLET REAGENT AUTO MICROSCOPY <td>URI NALYSIS WITH REFLEX URINE CULTURE</td><td>Routine</td><td>09/12/2020 9:53 AM EST</td><td></td><td> </td> 09/12/2020 09:53:00 AM [facility] CULTURE BCT ISOL&PRSMPTV ID ISOLATE EA URINE <td>URINE CATHETER CULT</td><td>Routine</td><td>09/12/2020 9:53 AM EST</td><td></td><td> </td> 09/12/2020 09:53:00 AM [facility] BLOOD COUNT COMPLETE AUTOMATED <td>CBC AND DIFFERENTIAL</td><td>Routine</td><td>09/12/2020 9:53 AM EST</td><td></td><td> </td> 09/12/2020 09:53:00 AM [facility] BASIC METABOLIC PANEL CALCIUM TOTAL <td>BASIC METABOLI C PANEL</td><td>Routine</td><td>09/12/2020 9:53 AM EST</td><td></td><td> </td> 09/12/2020 09:53:00 AM [facility] GLUCOSE QUANTITATIVE BLOOD XCPT REAGENT STRIP <td>POCT GLUCOSE, DOCKED</td><td>Routine</td><td>09/12/2020 8:02 AM EST</td><td></td><td> </td> 09/12/2020 08:02:00 AM [facility] CUL PRSMPTV PTHGNC ORGANISM SCRN W/COLONY ESTIMJ <td>M RSA CULTURE</td><td>Routine</td><td>09/12/2020 5:05 AM EST</td><td></td><td> </td> 09/12/2020 05:05:00 AM [facility] XR ABDOMEN AP ABD SUPINE ONLY [id number] <td>XR ABDOMEN AP ABD SUPINE ONLY 40060</td><td>Routine</td><td>09/12/2020 3:56 AM EST</td><td></td><td> </td> 09/12/2020 03:56:00 AM [facility] RADIOLOGIC EXAMINATION TIBIA & FIBULA 2 VIEWS <td>XR T IBIA 64487</td><td>STAT</td><td>09/12/2020 12:38 AM EST</td><td></td><td> </td> 09/12/2020 12:38:00 AM [facility] RADEX FOOT COMPLETE MINIMUM 3 VIEWS <td>XR FOOT 3 OR M ORE VIEWS 29881</td><td>STAT</td><td>09/12/2020 12:38 AM EST</td><td></td><td> </td> 09/12/2020 12:38:00 AM [facility] XR CHEST FRONTAL ONLY 86042 <td>XR CHEST FRONTAL ONLY 78672</td><td>STAT</td><td>09/12/2020 12:38 AM EST</td><td></td><td> </td> 09/12/2020 12:38:00 AM [facility] RADEX ANKLE COMPLETE MINIMUM 3 VIEWS <td>XR ANKLE 3 OR MORE VIEWS 80595</td><td>STAT</td><td>09/12/2020 12:38 AM EST</td><td></td><td> </td> 09/12/2020 12:38:00 AM [facility] BASIC METABOLIC PANEL CALCIUM IONIZED <td>POCT ISTAT CHEM8</td><td>Routine</td><td>09/11/2020 11:30 PM EST</td><td></td><td> </td> 09/11/2020 11:30:00 PM [facility] BLOOD GASES ANY COMBINATION PH PCO2 PO2 CO2 HCO3 <td>P OCT ISTAT VBG/LAC</td><td>Routine</td><td>09/11/2020 11:25 PM EST</td><td></td><td> </td> 09/11/2020 11:25:00 PM [facility] RESPIRATORY PATHOGEN PANEL <td>RESPIRATORY PATHOGEN PANEL</td><td>Routine</td><td>09/11/2020 11:02 PM EST</td><td></td><td> </td> 09/11/2020 11:02:00 PM [facility] COVID-19 PCR <td>COVID-19 PCR</td><td>Rou yamilet</td><td>09/11/2020 11:02 PM EST</td><td></td><td> </td> 09/11/2020 11:02:00 PM [facility] THROMBOPLASTIN TIME PARTIAL PLASMA/WHOLE BLOOD <td>PAR TIAL THROMBOPLASTIN TIME (PTT)</td><td>Routine</td><td>09/11/2020 11:02 PM EST</td><td></td><td> </td> 09/11/2020 11:02:00 PM [facility] CULTURE BACTERIAL BLOOD AEROBIC W/ID ISOLATES <td>BLOO D CULTURE</td><td>Routine</td><td>09/11/2020 11:02 PM EST</td><td></td><td></td> 09/11/2020 11:02:00 PM [facility] CULTURE BACTERIAL BLOOD AEROBIC W/ID ISOLATES <td>BLOO D CULTURE</td><td>Routine</td><td>09/11/2020 11:02 PM EST</td><td></td><td></td> 09/11/2020 11:02:00 PM [facility] SEDIMENTATION RATE RBC AUTOMATED <td>SEDIMENTATION RAT E, AUTOMATED</td><td>Routine</td><td>09/11/2020 11:02 PM EST</td><td></td><td> </td> 09/11/2020 11:02:00 PM [facility] PROTHROMBIN TIME <td>PROTIME INR</td><td>Rout ine</td><td>09/11/2020 11:02 PM EST</td><td></td><td> </td> 09/11/2020 11:02:00 PM [facility] BLOOD COUNT COMPLETE AUTO&AUTO DIFRNTL WBC COUNT <td>C BC AND DIFFERENTIAL</td><td>Routine</td><td>09/11/2020 11:02 PM EST</td><td></td><td> </td> 09/11/2020 11:02:00 PM [facility] BLOOD TYPING ABO <td>TYPE AND SCREEN</td><td> STAT</td><td>09/11/2020 11:02 PM EST</td><td></td><td> </td> 09/11/2020 11:02:00 PM [facility] C-REACTIVE PROTEIN <td>INFLAMMATORY C-REACTIVE PROTEIN (CRP)</td><td>Routine</td><td>09/11/2020 11:02 PM EST</td><td></td><td> </td> 09/11/2020 11:02:00 PM [facility] HEMOGLOBIN GLYCOSYLATED A1C <td>HEMOGLOBIN A1C</td><td>Routine</td><td>09/11/2020 11:02 PM EST</td><td></td><td> </td> 09/11/2020 11:02:00 PM [facility] DRUG SCREEN QUALITATIVE VANCOMYCIN <td>VANCOMYCIN, RANDOM</td><td>Routine</td><td>09/11/2020 11:02 PM EST</td><td></td><td> </td> 09/11/2020 11:02:00 PM [facility] BASIC METABOLIC PANEL CALCIUM TOTAL <td>BASIC METABOLI C PANEL</td><td>STAT</td><td>09/11/2020 11:02 PM EST</td><td></td><td> </td> 09/11/2020 11:02:00 PM [facility] URINALYSIS W/MICROSCOPIC & CULTURE IF INDICATED <td><c ontent ID="[id number]">URINALYSIS W/MICROSCOPIC & CULTURE IF INDICATED</content></td><td>STAT</td><td>09/11/2020 5:25 PM EST</td><td><paragraph>Peripheral vascular disease (CMS/HCC)</paragraph></td><td><paragraph styleCode="header">Results for this procedure are in the <content styleCode="[id number]">results section</content>.</paragraph></td> 09/11/2020 05:25:00 PM EST Peripheral vascular disease (CMS/HCC) [facility] Peripheral vascular disease (CMS/HCC) CT ANGIOGRAPHY LOWER EXTREMITY <td>CT LOWER EXTREMITY RIGHT ANGIO W AND WO IV CONTRAST</td><td>STAT</td><td>09/11/2020 3:31 PM EST</td><td></td><td> </td> 09/11/2020 03:31:49 PM EST [facility] DUP-SCAN LXTR ART/ARTL BPGS UNI/LMTD STUDY <td>ULTRASO UND ARTERIAL LOWER EXTREMITY RIGHT</td><td>STAT</td><td>09/11/2020 1:06 PM EST</td><td></td><td> </td> 09/11/2020 01:06:52 PM EST [facility] POCT I-STAT CHEM8+ UNSOLICITED RESULTS <td>POCT I-STAT CHEM8+ UNSOLICITED RESULTS</td><td>Routine</td><td>09/11/2020 1:05 PM EST</td><td></td><td> </td> 09/11/2020 01:05:00 PM EST [facility] PT ON THERAPY <td>PT ON THERAPY</td><td>ST AT</td><td>09/11/2020 1:00 PM EST</td><td></td><td> </td> 09/11/2020 01:00:00 PM [facility] PTT ON THERAPY <td>PTT ON THERAPY</td><td>S TAT</td><td>09/11/2020 1:00 PM EST</td><td></td><td> </td> 09/11/2020 01:00:00 PM EST [facility] N-TERMINAL PROBNP (BNP) <td>N-TERMINAL PROBNP (BNP)</td><td>STAT</td><td>09/11/2020 1:00 PM EST</td><td></td><td> </td> 09/11/2020 01:00:00 PM EST [facility] CBC AND DIFFERENTIAL <td>CBC AND DIFFERENTIAL</td ><td>STAT</td><td>09/11/2020 1:00 PM EST</td><td></td><td> </td> 09/11/2020 01:00:00 PM EST [facility] MAGNESIUM <td>MAGNESIUM</td><td>STAT</ td><td>09/11/2020 1:00 PM EST</td><td></td><td> </td> 09/11/2020 01:00:00 PM EST [facility] LIPASE <td>LIPASE</td><td>STAT</td> <td>09/11/2020 1:00 PM EST</td><td></td><td> </td> 09/11/2020 01:00:00 PM EST [facility] LACTATE <td>LACTIC ACID</td><td>STAT </td><td>09/11/2020 1:00 PM EST</td><td></td><td> </td> 09/11/2020 01:00:00 PM EST [facility] CREATINE KINASE TOTAL <td>CK</td><td>STAT</td><td> 09/11/2020 1:00 PM EST</td><td></td><td> </td> 09/11/2020 01:00:00 PM [facility] COMPREHENSIVE METABOLIC PANEL <td>COMPREHENSIVE METABO LIC PANEL</td><td>STAT</td><td>09/11/2020 1:00 PM EST</td><td></td><td> </td> 09/11/2020 01:00:00 PM [facility] XR CHEST 1 VIEW <td>XR CHEST 1 VIEW</td><td> STAT</td><td>09/11/2020 12:59 PM EST</td><td></td><td> </td> 09/11/2020 12:59:12 PM EST [facility] POCT GLUCOSE METER UNSOLICITED RESULTS <td>POCT GLUCOS E METER UNSOLICITED RESULTS</td><td>Routine</td><td>09/11/2020 12:05 PM EST</td><td></td><td> </td> 09/11/2020 12:05:00 PM EST [facility] POCT SARS-COV-2, PCR UNSOLICITED RESULTS <td>POCT SARS -COV-2, PCR UNSOLICITED RESULTS</td><td>Routine</td><td>09/07/2020 1:52 PM EST</td><td></td><td> </td> 09/07/2020 01:52:00 PM EST [facility] POCT GLUCOSE METER UNSOLICITED RESULTS <td>POCT GLUCOS E METER UNSOLICITED RESULTS</td><td>Routine</td><td>09/07/2020 11:23 AM EST</td><td></td><td> </td> 09/07/2020 11:23:00 AM EST [facility] POCT GLUCOSE METER UNSOLICITED RESULTS <td>POCT GLUCOS E METER UNSOLICITED RESULTS</td><td>Routine</td><td>09/07/2020 9:01 AM EST</td><td></td><td> </td> 09/07/2020 09:01:00 AM EST [facility] RBC AND PLATELET MORPHOLGY <td>RBC AND PLATELET MORPHOLGY</td><td>Timed</td><td>09/07/2020 6:00 AM EST</td><td></td><td> </td> 09/07/2020 06:00:00 AM EST [facility] CBC AND DIFFERENTIAL <td>CBC AND DIFFERENTIAL</td ><td>Timed</td><td>09/07/2020 6:00 AM EST</td><td></td><td> </td> 09/07/2020 06:00:00 AM [facility] DRUG SCREEN QUALITATIVE VANCOMYCIN <td>VANCOMYCIN, TROUGH</td><td>Timed</td><td>09/07/2020 6:00 AM EST</td><td></td><td> </td> 09/07/2020 06:00:00 AM [facility] BASIC METABOLIC PANEL CALCIUM TOTAL <td>BASIC METABOLI C PANEL</td><td>Timed</td><td>09/07/2020 6:00 AM EST</td><td></td><td> </td> 09/07/2020 06:00:00 AM [facility] POCT GLUCOSE METER UNSOLICITED RESULTS <td>POCT GLUCOS E METER UNSOLICITED RESULTS</td><td>Routine</td><td>09/06/2020 7:38 PM EST</td><td></td><td> </td> 09/06/2020 07:38:00 PM [facility] POCT GLUCOSE METER UNSOLICITED RESULTS <td>POCT GLUCOS E METER UNSOLICITED RESULTS</td><td>Routine</td><td>09/06/2020 5:28 PM EST</td><td></td><td> </td> 09/06/2020 05:28:00 PM [facility] POCT GLUCOSE METER UNSOLICITED RESULTS <td>POCT GLUCOS E METER UNSOLICITED RESULTS</td><td>Routine</td><td>09/06/2020 11:20 AM EST</td><td></td><td> </td> 09/06/2020 11:20:00 AM EST [facility] CT ABDOMEN & PELVIS W/O CONTRST 1/> BODY REGIONS <td>C T ABDOMEN PELVIS W WO CONTRAST</td><td>Routine</td><td>09/06/2020 10:50 AM EST</td><td></td><td> </td> 09/06/2020 10:50:04 AM EST [facility] POCT GLUCOSE METER UNSOLICITED RESULTS <td>POCT GLUCOS E METER UNSOLICITED RESULTS</td><td>Routine</td><td>09/06/2020 8:26 AM EST</td><td></td><td> </td> 09/06/2020 08:26:00 AM EST [facility] OXYGEN THERAPY <td>OXYGEN THERAPY</td><td>R outine</td><td>09/06/2020 8:00 AM EST</td><td></td><td></td> 09/06/2020 08:00:05 AM EST [facility] OXYGEN DAILY PROTOCOL <td>OXYGEN DAILY PROTOCOL</td><td>Routine</td><td>09/06/2020 8:00 AM EST</td><td></td><td></td> 09/06/2020 08:00:05 AM EST [facility] BLOOD COUNT PLATELET AUTOMATED <td>PLATELET COUNT</td><td>Timed</td><td>09/06/2020 5:42 AM EST</td><td></td><td> </td> 09/06/2020 05:42:00 AM EST [facility] BILIRUBIN TOTAL <td>BILIRUBIN, TOTAL</td><td >Timed</td><td>09/06/2020 5:42 AM EST</td><td></td><td> </td> 09/06/2020 05:42:00 AM EST [facility] BASIC METABOLIC PANEL CALCIUM TOTAL <td>BASIC METABOLI C PANEL</td><td>Routine</td><td>09/06/2020 5:42 AM EST</td><td></td><td> </td> 09/06/2020 05:42:00 AM EST [facility] OXYGEN THERAPY <td>OXYGEN THERAPY</td><td>R outine</td><td>09/05/2020 8:00 PM EST</td><td></td><td></td> 09/05/2020 08:00:07 PM EST [facility] OXYGEN DAILY PROTOCOL <td>OXYGEN DAILY PROTOCOL</td><td>Routine</td><td>09/05/2020 8:00 PM EST</td><td></td><td></td> 09/05/2020 08:00:07 PM EST [facility] POCT GLUCOSE METER UNSOLICITED RESULTS <td>POCT GLUCOS E METER UNSOLICITED RESULTS</td><td>Routine</td><td>09/05/2020 7:52 PM EST</td><td></td><td> </td> 09/05/2020 07:52:00 PM EST [facility] POCT GLUCOSE METER UNSOLICITED RESULTS <td>POCT GLUCOS E METER UNSOLICITED RESULTS</td><td>Routine</td><td>09/05/2020 5:04 PM EST</td><td></td><td> </td> 09/05/2020 05:04:00 PM EST [facility] DRUG SCREEN QUALITATIVE VANCOMYCIN <td>VANCOMYCIN, TROUGH</td><td>Timed</td><td>09/05/2020 2:26 PM EST</td><td></td><td> </td> 09/05/2020 02:26:00 PM EST [facility] POCT GLUCOSE METER UNSOLICITED RESULTS <td>POCT GLUCOS E METER UNSOLICITED RESULTS</td><td>Routine</td><td>09/05/2020 12:14 PM EST</td><td></td><td> </td> 09/05/2020 12:14:00 PM EST [facility] OXYGEN THERAPY <td>OXYGEN THERAPY</td><td>R outine</td><td>09/05/2020 8:00 AM EST</td><td></td><td></td> 09/05/2020 08:00:01 AM EST [facility] OXYGEN DAILY PROTOCOL <td>OXYGEN DAILY PROTOCOL</td><td>Routine</td><td>09/05/2020 8:00 AM EST</td><td></td><td></td> 09/05/2020 08:00:01 AM EST [facility] POCT GLUCOSE METER UNSOLICITED RESULTS <td>POCT GLUCOS E METER UNSOLICITED RESULTS</td><td>Routine</td><td>09/05/2020 7:45 AM EST</td><td></td><td> </td> 09/05/2020 07:45:00 AM [facility] ULTRASOUND ABDOMINAL REAL TIME W/IMAGE LIMITED <td>US ABDOMEN LIMITED</td><td>Routine</td><td>09/05/2020 7:40 AM EST</td><td></td><td> </td> 09/05/2020 07:40:45 AM [facility] POCT GLUCOSE METER UNSOLICITED RESULTS <td>POCT GLUCOS E METER UNSOLICITED RESULTS</td><td>Routine</td><td>09/04/2020 8:30 PM EST</td><td></td><td> </td> 09/04/2020 08:30:00 PM EST [facility] OXYGEN DAILY PROTOCOL <td>OXYGEN DAILY PROTOCOL</td><td>Routine</td><td>09/04/2020 8:00 PM EST</td><td></td><td></td> 09/04/2020 08:00:05 PM EST [facility] OXYGEN THERAPY <td>OXYGEN THERAPY</td><td>R outine</td><td>09/04/2020 8:00 PM EST</td><td></td><td></td> 09/04/2020 08:00:05 PM EST [facility] POCT GLUCOSE METER UNSOLICITED RESULTS <td>POCT GLUCOS E METER UNSOLICITED RESULTS</td><td>Routine</td><td>09/04/2020 5:03 PM EST</td><td></td><td> </td> 09/04/2020 05:03:00 PM EST [facility] POCT GLUCOSE METER UNSOLICITED RESULTS <td>POCT GLUCOS E METER UNSOLICITED RESULTS</td><td>Routine</td><td>09/04/2020 12:13 PM EST</td><td></td><td> </td> 09/04/2020 12:13:00 PM EST [facility] POCT GLUCOSE METER UNSOLICITED RESULTS <td>POCT GLUCOS E METER UNSOLICITED RESULTS</td><td>Routine</td><td>09/04/2020 8:25 AM EST</td><td></td><td> </td> 09/04/2020 08:25:00 AM EST [facility] OXYGEN THERAPY <td>OXYGEN THERAPY</td><td>R outine</td><td>09/04/2020 8:00 AM EST</td><td></td><td></td> 09/04/2020 08:00:03 AM EST [facility] OXYGEN DAILY PROTOCOL <td>OXYGEN DAILY PROTOCOL</td><td>Routine</td><td>09/04/2020 8:00 AM EST</td><td></td><td></td> 09/04/2020 08:00:03 AM EST [facility] C-REACTIVE PROTEIN <td>C-REACTIVE PROTEIN</td>< td>Routine</td><td>09/04/2020 5:25 AM EST</td><td></td><td> </td> 09/04/2020 05:25:00 AM EST [facility] POCT GLUCOSE METER UNSOLICITED RESULTS <td>POCT GLUCOS E METER UNSOLICITED RESULTS</td><td>Routine</td><td>09/03/2020 9:25 PM EST</td><td></td><td> </td> 09/03/2020 09:25:00 PM EST [facility] OXYGEN THERAPY <td>OXYGEN THERAPY</td><td>R outine</td><td>09/03/2020 8:00 PM EST</td><td></td><td></td> 09/03/2020 08:00:04 PM EST [facility] OXYGEN DAILY PROTOCOL <td>OXYGEN DAILY PROTOCOL</td><td>Routine</td><td>09/03/2020 8:00 PM EST</td><td></td><td></td> 09/03/2020 08:00:04 PM EST [facility] POCT GLUCOSE METER UNSOLICITED RESULTS <td>POCT GLUCOS E METER UNSOLICITED RESULTS</td><td>Routine</td><td>09/03/2020 3:50 PM EST</td><td></td><td> </td> 09/03/2020 03:50:00 PM EST [facility] POCT GLUCOSE METER UNSOLICITED RESULTS <td>POCT GLUCOS E METER UNSOLICITED RESULTS</td><td>Routine</td><td>09/03/2020 12:39 PM EST</td><td></td><td> </td> 09/03/2020 12:39:00 PM EST [facility] OXYGEN THERAPY <td>OXYGEN THERAPY</td><td>R outine</td><td>09/03/2020 8:00 AM EST</td><td></td><td></td> 09/03/2020 08:00:04 AM [facility] OXYGEN DAILY PROTOCOL <td>OXYGEN DAILY PROTOCOL</td><td>Routine</td><td>09/03/2020 8:00 AM EST</td><td></td><td></td> 09/03/2020 08:00:04 AM EST [facility] POCT GLUCOSE METER UNSOLICITED RESULTS <td>POCT GLUCOS E METER UNSOLICITED RESULTS</td><td>Routine</td><td>09/03/2020 7:34 AM EST</td><td></td><td> </td> 09/03/2020 07:34:00 AM EST [facility] BLOOD COUNT COMPLETE AUTO&AUTO DIFRNTL WBC COUNT <td>H C CBC W/ DIFFERENTIAL</td><td>Routine</td><td>09/03/2020 5:00 AM EST</td><td></td><td> </td> 09/03/2020 05:00:00 AM EST [facility] BILIRUBIN TOTAL <td>BILIRUBIN, TOTAL</td><td >Timed</td><td>09/03/2020 5:00 AM EST</td><td></td><td> </td> 09/03/2020 05:00:00 AM EST [facility] BASIC METABOLIC PANEL CALCIUM TOTAL <td>BASIC METABOLI C PANEL</td><td>Routine</td><td>09/03/2020 5:00 AM EST</td><td></td><td> </td> 09/03/2020 05:00:00 AM [facility] DRUG SCREEN QUALITATIVE VANCOMYCIN <td>VANCOMYCIN, TROUGH</td><td>Timed</td><td>09/02/2020 10:30 PM EST</td><td></td><td> </td> 09/02/2020 10:30:00 PM [facility] OXYGEN THERAPY <td>OXYGEN THERAPY</td><td>R outine</td><td>09/02/2020 8:00 PM EST</td><td></td><td></td> 09/02/2020 08:00:05 PM [facility] OXYGEN DAILY PROTOCOL <td>OXYGEN DAILY PROTOCOL</td><td>Routine</td><td>09/02/2020 8:00 PM EST</td><td></td><td></td> 09/02/2020 08:00:05 PM [facility] POCT GLUCOSE METER UNSOLICITED RESULTS <td>POCT GLUCOS E METER UNSOLICITED RESULTS</td><td>Routine</td><td>09/02/2020 7:15 PM EST</td><td></td><td> </td> 09/02/2020 07:15:00 PM [facility] POCT GLUCOSE METER UNSOLICITED RESULTS <td>POCT GLUCOS E METER UNSOLICITED RESULTS</td><td>Routine</td><td>09/02/2020 4:24 PM EST</td><td></td><td> </td> 09/02/2020 04:24:00 PM EST [facility] POCT GLUCOSE METER UNSOLICITED RESULTS <td>POCT GLUCOS E METER UNSOLICITED RESULTS</td><td>Routine</td><td>09/02/2020 12:03 PM EST</td><td></td><td> </td> 09/02/2020 12:03:00 PM EST [facility] OXYGEN THERAPY <td>OXYGEN THERAPY</td><td>R outine</td><td>09/02/2020 10:22 AM EST</td><td></td><td></td> 09/02/2020 10:22:00 AM EST [facility] OXYGEN THERAPY <td>OXYGEN THERAPY</td><td>R outine</td><td>09/02/2020 10:22 AM EST</td><td></td><td></td> 09/02/2020 10:22:00 AM EST [facility] OXYGEN THERAPY <td>OXYGEN THERAPY</td><td>R outine</td><td>09/02/2020 10:22 AM EST</td><td></td><td></td> 09/02/2020 10:22:00 AM EST [facility] LARGE VOLUME NEBULIZATION <td>LARGE VOLUME NEBULIZATION</td><td>Routine</td><td>09/02/2020 10:22 AM EST</td><td></td><td></td> 09/02/2020 10:22:00 AM EST [facility] EXTUBATION <td>EXTUBATION</td><td>Routi ne</td><td>09/02/2020 10:22 AM EST</td><td></td><td></td> 09/02/2020 10:22:00 AM EST [facility] VENTILATOR <td>VENTILATOR</td><td>Routi ne</td><td>09/02/2020 9:57 AM EST</td><td></td><td></td> 09/02/2020 09:57:00 AM EST [facility] OXYGEN THERAPY <td>OXYGEN THERAPY</td><td>R outine</td><td>09/02/2020 9:51 AM EST</td><td></td><td></td> 09/02/2020 09:51:59 AM EST [facility] OXYGEN THERAPY <td>OXYGEN THERAPY</td><td>R outine</td><td>09/02/2020 9:51 AM EST</td><td></td><td></td> 09/02/2020 09:51:59 AM EST [facility] POCT I-STAT CG4+, ARTERIAL UNSOLICITED RESULTS <td>POC T I-STAT CG4+, ARTERIAL UNSOLICITED RESULTS</td><td>Routine</td><td>09/02/2020 9:15 AM EST</td><td></td><td> </td> 09/02/2020 09:15:00 AM EST [facility] C-REACTIVE PROTEIN <td>C-REACTIVE PROTEIN</td>< td>Routine</td><td>09/02/2020 8:17 AM EST</td><td></td><td> </td> 09/02/2020 08:17:00 AM EST [facility] OXYGEN DAILY PROTOCOL <td>OXYGEN DAILY PROTOCOL</td><td>Routine</td><td>09/02/2020 8:00 AM EST</td><td></td><td></td> 09/02/2020 08:00:03 AM EST [facility] VENTILATOR <td>VENTILATOR</td><td>Routi ne</td><td>09/02/2020 5:34 AM EST</td><td></td><td></td> 09/02/2020 05:34:45 AM EST [facility] POCT GLUCOSE METER UNSOLICITED RESULTS <td>POCT GLUCOS E METER UNSOLICITED RESULTS</td><td>Routine</td><td>09/02/2020 5:13 AM EST</td><td></td><td> </td> 09/02/2020 05:13:00 AM EST [facility] BLOOD COUNT COMPLETE AUTO&AUTO DIFRNTL WBC COUNT <td>H C CBC W/ DIFFERENTIAL</td><td>Routine</td><td>09/02/2020 3:31 AM EST</td><td></td><td> </td> 09/02/2020 03:31:00 AM EST [facility] COMPREHENSIVE METABOLIC PANEL <td>COMPREHENSIVE METABO LIC PANEL</td><td>Routine</td><td>09/02/2020 3:31 AM EST</td><td></td><td> </td> 09/02/2020 03:31:00 AM EST [facility] POCT GLUCOSE METER UNSOLICITED RESULTS <td>POCT GLUCOS E METER UNSOLICITED RESULTS</td><td>Routine</td><td>09/02/2020 12:41 AM EST</td><td></td><td> </td> 09/02/2020 12:41:00 AM EST [facility] ECG Interpret & Report 09/02/2020 12:00:00 AM EST [facility]) POCT GLUCOSE METER UNSOLICITED RESULTS <td>POCT GLUCOS E METER UNSOLICITED RESULTS</td><td>Routine</td><td>09/01/2020 9:10 PM EST</td><td></td><td> </td> 09/01/2020 09:10:00 PM EST [facility] OXYGEN DAILY PROTOCOL <td>OXYGEN DAILY PROTOCOL</td><td>Routine</td><td>09/01/2020 8:00 PM EST</td><td></td><td></td> 09/01/2020 08:00:09 PM EST [facility] POCT GLUCOSE METER UNSOLICITED RESULTS <td>POCT GLUCOS E METER UNSOLICITED RESULTS</td><td>Routine</td><td>09/01/2020 4:57 PM EST</td><td></td><td> </td> 09/01/2020 04:57:00 PM EST [facility] OXYGEN DAILY PROTOCOL <td>OXYGEN DAILY PROTOCOL</td><td>Routine</td><td>09/01/2020 4:02 PM EST</td><td></td><td></td> 09/01/2020 04:02:16 PM EST [facility] OXYGEN DAILY PROTOCOL <td>OXYGEN DAILY PROTOCOL</td><td>Routine</td><td>09/01/2020 4:02 PM EST</td><td></td><td></td> 09/01/2020 04:02:16 PM EST [facility] OXYGEN DAILY PROTOCOL <td>OXYGEN DAILY PROTOCOL</td><td>Routine</td><td>09/01/2020 4:02 PM EST</td><td></td><td></td> 09/01/2020 04:02:16 PM EST [facility] MANUAL DIFFERENTIAL <td>MANUAL DIFFERENTIAL</td> <td>Routine</td><td>09/01/2020 3:38 PM EST</td><td></td><td> </td> 09/01/2020 03:38:00 PM EST [facility] NATRIURETIC PEPTIDE <td>N-TERMINAL PROBNP (BNP)</td><td>Routine</td><td>09/01/2020 3:38 PM EST</td><td></td><td> </td> 09/01/2020 03:38:00 PM [facility] TROPONIN QUANTITATIVE <td>TROPONIN I</td><td>Routi ne</td><td>09/01/2020 3:38 PM EST</td><td></td><td> </td> 09/01/2020 03:38:00 PM [facility] BLOOD COUNT COMPLETE AUTO&AUTO DIFRNTL WBC COUNT <td>H C CBC W/ DIFFERENTIAL</td><td>Routine</td><td>09/01/2020 3:38 PM EST</td><td></td><td> </td> 09/01/2020 03:38:00 PM [facility] DRUG SCREEN QUALITATIVE VANCOMYCIN <td>VANCOMYCIN, RANDOM</td><td>Routine</td><td>09/01/2020 3:38 PM EST</td><td></td><td> </td> 09/01/2020 03:38:00 PM [facility] BASIC METABOLIC PANEL CALCIUM TOTAL <td>BASIC METABOLI C PANEL</td><td>Routine</td><td>09/01/2020 3:38 PM EST</td><td></td><td> </td> 09/01/2020 03:38:00 PM [facility] XR CHEST 1 VIEW <td>XR CHEST 1 VIEW</td><td> STAT</td><td>09/01/2020 2:45 PM EST</td><td></td><td> </td> 09/01/2020 02:45:36 PM [facility] POCT SARS-COV-2, PCR UNSOLICITED RESULTS <td>POCT SARS -COV-2, PCR UNSOLICITED RESULTS</td><td>Routine</td><td>09/01/2020 2:39 PM EST</td><td></td><td> </td> 09/01/2020 02:39:00 PM EST [facility] POCT RAPID INFLUENZA A/B UNSOLICITED RESULTS <td>POCT RAPID INFLUENZA A/B UNSOLICITED RESULTS</td><td>Routine</td><td>09/01/2020 2:39 PM EST</td><td></td><td> </td> 09/01/2020 02:39:00 PM EST [facility] CULTURE BACTERIAL BLOOD AEROBIC W/ID ISOLATES <td>BLOO D CULTURE</td><td>Routine</td><td>09/01/2020 2:24 PM EST</td><td></td><td> </td> 09/01/2020 02:24:00 PM EST [facility] CULTURE BACTERIAL BLOOD AEROBIC W/ID ISOLATES <td>BLOO D CULTURE</td><td>Routine</td><td>09/01/2020 2:24 PM EST</td><td></td><td> </td> 09/01/2020 02:24:00 PM EST [facility] TRIGLYCERIDES <td>TRIGLYCERIDES</td><td>Ti med</td><td>09/01/2020 2:24 PM EST</td><td></td><td> </td> 09/01/2020 02:24:00 PM EST [facility] POCT I-STAT CG4+, ARTERIAL UNSOLICITED RESULTS <td>POC T I-STAT CG4+, ARTERIAL UNSOLICITED RESULTS</td><td>Routine</td><td>09/01/2020 2:03 PM EST</td><td></td><td> </td> 09/01/2020 02:03:00 PM [facility] CUL BACT XCPT URINE BLOOD/STOOL AEROBIC ISOL <td>CULTU RE SPUTUM</td><td>Routine</td><td>09/01/2020 1:40 PM EST</td><td></td><td> </td> 09/01/2020 01:40:00 PM [facility] URNLS DIP STICK/TABLET REAGENT AUTO MICROSCOPY <td>URI NALYSIS WITH MICROSCOPIC</td><td>Routine</td><td>09/01/2020 1:40 PM EST</td><td></td><td> </td> 09/01/2020 01:40:00 PM [facility] POCT GLUCOSE METER UNSOLICITED RESULTS <td>POCT GLUCOS E METER UNSOLICITED RESULTS</td><td>Routine</td><td>09/01/2020 1:34 PM EST</td><td></td><td> </td> 09/01/2020 01:34:00 PM [facility] VENTILATOR <td>VENTILATOR</td><td>Routi ne</td><td>09/01/2020 1:30 PM EST</td><td></td><td></td> 09/01/2020 01:30:05 PM [facility] SPONTANEOUS BREATHING TRIAL <td>SPONTANEOUS BREATHING TRIAL</td><td>Routine</td><td>09/01/2020 1:28 PM EST</td><td></td><td></td> 09/01/2020 01:28:19 PM [facility] VENTILATOR <td>VENTILATOR</td><td>Routi ne</td><td>09/01/2020 1:28 PM EST</td><td></td><td></td> 09/01/2020 01:28:19 PM [facility] WEANING PARAMETERS <td>WEANING PARAMETERS</td>< td>Routine</td><td>09/01/2020 1:28 PM EST</td><td></td><td></td> 09/01/2020 01:28:19 PM [facility] Plain Radiography of Chest Plain Radiography of Chest 2020 12:00:00 AM [facility] Introduction of Other Anti-infective int o Peripheral Vein, Percutaneous Approach Introduction of Other Anti-infective int o Peripheral Vein, Percutaneous Approach 08/31/2020 12:00:00 AM [facility] Introduction of Electrolytic and Water B alance Substance into Peripheral Vein, Percutaneous Approach Introduction of Electrolytic and Water B alance Substance into Peripheral Vein, Percutaneous Approach 08/31/2020 12:00:00 AM [facility] Introduction of Anesthetic Agent into Re spiratory Tract, Via Natural or Artificial Opening Introduction of Anesthetic Agent into Re spiratory Tract, Via Natural or Artificial Openin 08/31/2020 12:00:00 AM [facility] INTRODUCE REMDESIVIR IN PERIPH VEIN, PERC, [place] 08/11/2020 12:00:00 AM [facility] Introduction of Anti-inflammatory into Peripheral Vein , Percutaneous Approach Introduction of Anti-inflammatory into Peripheral Vein, Percutaneous Approach 07/07/2020 12:00:00 AM [facility] DEBRIDEMENT NAIL ANY METHOD 6/> 05/21/2020 12:00:00 AM EST [facility] Results ID Date Data Source [id number] 03/16/2021 03:28:00 PM EDT [facility] @03/16/21 1429: UA W/ MICRO added. RFLXG = UMIC CIF.Method of Collection:: Voided @03/16/21 1429: UA W/ MICRO added. RFLXG = UMIC CIF.Method of Collection:: Voided [facility] Name Value Range Interpretation Code Description Data Sanjuana rce(s) Supporting Document(s) Color of Urine [facility] Appearance of Urine CLEAR [facility] pH of Urine by Test strip 7.0 5-8 [facility] Specific gravity of Urine by Refractometry 1.019 1.005-1.030 [facility] Leukocyte esterase [Presence] in Urine by Test strip NEGAT DUNG [facility] Nitrite [Presence] in Urine by Test strip NEGATIVE [facility] Protein [Presence] in Urine by Test strip NEGATIVE Above high normal [facility] @DO MICRO!!!! Glucose [Mass/volume] in Urine by Automated test strip 100 mg/dl NEGATIVE Abnormal (applies to non-numeric results) [facility] Ketones [Presence] in Urine by Test strip NEGATIVE [facility] Urobilinogen [Presence] in Urine 0.2-1 EU/dl [facility] Bilirubin.total [Presence] in Urine by Automated test strip NEGATIVE [facility] Erythrocytes [#/volume] in Urine by Test strip NEGATIVE NEGATIVE [facility] URINE MICROSCOPIC? (CIF) Microscopic Added [facility] ID Date Data Source [id number] 03/16/2021 03:28:00 PM EDT [facility] @03/16/21 1429: UA W/ MICRO added. RFLXG = UMIC CIF.Method of Collection:: Voided @03/16/21 1429: UA W/ MICRO added. RFLXG = UMIC CIF.Method of Collection:: Voided [facility] Name Value Range Interpretation Code Description Data Sanjuana rce(s) Supporting Document(s) Leukocytes [#/volume] in Urine by Manual count OCCASIONAL 0-5 [facility] Cells [Type] in Urine sediment by Light microscopy [facility] ID Date Data Source [id number] 03/16/2021 02:14:00 PM EDT [facility] @03/16/21 1429: UA W/ MICRO added. RFLXG = UMIC CIF.Method of Collection:: Voided @03/16/21 1429: UA W/ MICRO added. RFLXG = UMIC CIF.Method of Collection:: Voided [facility] Name Value Range Interpretation Code Description Data Sanjuana rce(s) Supporting Document(s) Leukocytes [#/volume] in Blood by Automated count 7.0 10*3/uL 4.45-10 .71 N [facility] Erythrocytes [#/volume] in Blood by Automated count 5.27 10*6/uL 4.3- 6.1 N [facility] Hemoglobin [Moles/volume] in Blood 13.6 g/dL 13-18 N [facility] Hematocrit [Volume Fraction] of Blood by Automated count 44.2 % 4 2-52 N [facility] Erythrocyte mean corpuscular volume [Ent itic volume] in Cord blood by Automated count 84 fL 80-96 N [facility] ital Erythrocyte mean corpuscular hemoglobin [Entitic mass] by Au tomated count 26 pg 27-31 Below low normal [facility] Erythrocyte mean corpuscular hemoglobin concentration [Mass/volume] in Cord blood 31 g/dL 33-37 Below low normal [facility] Erythrocyte distribution width [Entitic volume] by Automated cou nt 16 % 11-15 Above high normal [facility] Platelets [#/volume] in Blood by Automated count 180 10*3/uL 130-472 [facility] ID Date Data Source [id number] 03/16/2021 06:19:00 PM EDT [facility] @03/16/21 1429: UA W/ MICRO added. RFLXG = UMIC CIF.Method of Collection:: Voided @03/16/21 1429: UA W/ MICRO added. RFLXG = UMIC CIF.Method of Collection:: Voided [facility] Name Value Range Interpretation Code Description Data Sanjuana rce(s) Supporting Document(s) Urea nitrogen [Mass/volume] in Serum or Plasma 19 mg/dL 9-23 N [facility] Sodium [Moles/volume] in Serum or Plasma 136 mmol/L 132-146 [facility] Potassium [Moles/volume] in Serum or Plasma 4.2 mmol/L 3.5-5.5 [facility] Chloride [Moles/volume] in Serum or Plasma 103 mmol/L 99-109 [facility] Carbon dioxide, total [Moles/volume] in Serum or Plasma 29 mmol/L 20 -31 N [facility] Anion gap in Serum or Plasma 8 mmol/L 8-16 [facility] Glucose [Mass/volume] in Serum or Plasma 101 mg/dL 74-106 N [facility] Creatinine 1.0 mg/dL 0.5-1.1 [facility] Glomerular filtration rate/1.73 sq M.pre dicted [Volume Rate/Area] in Serum or Plasma Greater Than 60 ABOVE 60 [facility] Alanine aminotransferase [Enzymatic acti vity/volume] in Serum or Plasma by With P-5'-P 25 U/L 10-49 N [facility] ital Aspartate aminotransferase [Enzymatic ac tivity/volume] in Serum or Plasma by With P-5'-P 16 U/L 0-33 N [facility] pital Alkaline phosphatase [Enzymatic activity/volume] in Serum or Plasma 142 U/L 45-129 Above high normal [facility] Calcium [Mass/volume] in Serum or Plasma 9.0 mg/dL 8.5-10.1 [facility] Bilirubin.total [Mass/volume] in Serum or Plasma 0.5 mg/dL 0.3-1.2 [facility] Albumin [Mass/volume] in Serum or Plasma by Bromocresol purple (BCP) dye binding method 3.5 g/dL 3.2-4.8 N [facility] ital Protein [Mass/volume] in Serum or Plasma 7.2 g/dL 5.7-8.2 [facility] ID Date Data Source [id number] 03/16/2021 06:45:00 PM EDT [facility] @03/16/21 1429: UA W/ MICRO added. RFLXG = IC CIF.Method of Collection:: Voided @03/16/21 1429: UA W/ MICRO added. RFLXG = UMIC CIF.Method of Collection:: Voided [facility] Name Value Range Interpretation Code Description Data Sanjuana rce(s) Supporting Document(s) Hemoglobin A1c [Mass/volume] in Blood 8.9 % 3.8-5.6 Above hig h normal [facility] The following ranges may be u sed for interpretation of results: HGBA1C degree of glucose control: Greater than 8%: Action Suggested * Less than 7%: Goal of Diabetic Therapy Less than 5.6%: NormalFactors such as duration of diabetes, adherence to therapyand the age of the patient should also be considered inassessing the degree of blood glucose control.* High risk of developing residential complications such asretinopathy, nephropathy, neuropathy, cardiopathy, etc. Some danger of hypoglycemic reaction in Type I diabetics.Some glucose intolerant individuals and "Sub Clinical"diabetics may demonstrate HGBA1C levels in this area. Glucose mean value [Moles/volume] in Blood Estimated f rom glycated hemoglobin 209 mg/dL [facility] An A1C of 7% - the goal of diabetic ther apy - is equivalentto an EAG of 154 mg/dl. ID Date Data Source [id number] 03/16/2021 06:19:00 PM EDT [facility] @03/16/21 1429: UA W/ MICRO added. RFLXG = UMIC CIF.Method of Collection:: Voided @03/16/21 1429: UA W/ MICRO added. RFLXG = UMIC CIF.Method of Collection:: Voided [facility] Name Value Range Interpretation Code Description Data Sanjuana rce(s) Supporting Document(s) Thyrotropin [Units/volume] in Serum or Plasma by Detec tion limit <= 0.005 mIU/L 0.49 u[iU]/mL 0.35-5.50 N [facility] ID Date Data Source [id number] 10/29/2020 12:00:00 AM EDT [facility] Name Value Range Interpretation Code Description Data Sanjuana rce(s) Supporting Document(s) SARS coronavirus [address] [facility] This lab was ordered by [facility] and rep orted by [facility]. ID Date Data Source [id number] 10/22/2020 12:00:00 AM EDT [facility] Name Value Range Interpretation Code Description Data Sanjuana rce(s) Supporting Document(s) SARS coronavirus [address] [facility] This lab was ordered by [facility] and rep orted by [facility]. ID Date Data Source [id number] 10/16/2020 12:00:00 AM EDT [facility] Name Value Range Interpretation Code Description Data Sanjuana rce(s) Supporting Document(s) SARS coronavirus [address] [facility] This lab was ordered by [facility] and rep orted by [facility]. ID Date Data Source [id number] 10/08/2020 08:07:00 AM EDT [facility] Name Value Range Interpretation Code Description Data Sanjuana rce(s) Supporting Document(s) BASIC METABOLIC PANEL [facility] BASIC METABOLIC PANEL Sodium [Moles/volume] in Serum or Plasma 137 mEq/L 134 - 153 [facility] Potassium [Moles/volume] in Serum or Plasma 4.4 mEq/L 3.6 - 5.0 [facility] Chloride [Moles/volume] in Serum or Plasma 99 mEq/L 98 - 107 [facility] Carbon dioxide, total [Moles/volume] in Serum or Plasma 31 MEQ/L 22 - 30 H [facility] Glucose [Mass/volume] in Serum or Plasma 210 MG/DL 70 - 99 H [facility] BUN 22 MG/DL 7 - 21 H [facility] al Creatinine [Mass/volume] in Serum or Plasma 0.7 MG/DL 0.7 - 1.5 [facility] BUN/CREAT 31 8 - 27 H [facility] Calcium [Mass/volume] in Serum or Plasma 9.0 MG/DL 8.4 - 10.2 [facility] Anion gap 3 in Serum or Plasma 7.0 mmol/L 8.0 - 16.0 L [facility] AGE 65 yrs [facility] al AFR AMER GFR >60 mL/min [facility] NON-AA GFR >60 mL/min [facility] ital Male GFR Inter prentation 20-49 yrs [...] >32 mL/min Normal ID Date Data Source [id number] 10/01/2020 06:19:00 AM EDT [facility] Name Value Range Interpretation Code Description Data Sanjuana rce(s) Supporting Document(s) CULTURE URINE [facility] _CULTURE URINE_$$[id number]$$007421$$516521$$700298$$757681$$397534$$686700$$176281$$977982$$ 349364$$777527$$455128$$145983$$908100$$345795$$774081$$258602$$075832$$864651$$ 753172$$542116$$433327$$613475$$176290$$173122$$004734$$045289 -- Continued on next page --Patient: JAROD Ross Order: [id number] Page 2Culture: CULTURE URINE Status: Final ====$$[id number]$$[id number] DATE/TIME: 10/01/2020 06:06Culture: CULTURE URINE Status: FinalUrine Culture,Comprehensive: Q0Fcdjs urogenital flora10,000-25,000 colony forming units per mLP1 Test performed by: [facility] RAMÍREZ #: [id number] [address] [place] [address] [id number] [facility] [id number] Director : Abilio Ratliff MD NPI #:Photography Editor : [email or web address]/01/[email or web address] REF ID Date Data Source [id number] 09/29/2020 09:47:00 AM EDT [facility] Name Value Range Interpretation Code Description Data Sanjuana rce(s) Supporting Document(s) [facility]IS [facility] URINALYSIS SOURCE R [facility] COLOR yellow NORMAL: Yellow [facility] CLARITY clear NORMAL: Clear [facility] Specific gravity of Urine by Test strip 1.010 1.001 - 1.030 [facility] pH 7 5 - 9 [facility] Glucose [Mass/volume] in Urine by Test strip 250 NORMAL: Negat dung A [facility] Bilirubin.total [Presence] in Urine by Test strip NEG NORMAL: Negative [facility] Ketones [Presence] in Urine by Test strip NEG NORMAL: Negative [facility] Protein [Mass/volume] in Urine by Test strip 30 NORMAL: Negat dung [facility] Nitrite [Presence] in Urine by Test strip NEG NORMAL: Negative [facility] BLOOD NEG NORMAL: Negative [facility] Leukocyte esterase [Presence] in Urine by Test strip 25 SUSAN L: Negative [facility] Urobilinogen [Mass/volume] in Urine by Test strip NOR less ben n 1.0 mg/dL [facility] MICROSCOPIC See Below [facility] ital WBC 1 - 3 NORMAL: NONE SEEN [facility] Erythrocytes [#/volume] in Urine by Test strip 1 - 3 NORMAL: NON E SEEN [facility] EPITHELIAL FEW NORMAL: NONE SEEN [facility] Bacteria [Presence] in Urine sediment by Light microscopy Tr ilia NORMAL: NONE SEEN [facility] ID Date Data Source [id number] 09/29/2020 08:18:00 AM EDT [facility] Name Value Range Interpretation Code Description Data Sanjuana rce(s) Supporting Document(s) CBC NO DIFF [facility] ital COMPLETE BLOOD COUNT Leukocytes [#/volume] in Blood by Automated count 8.5 10^3/uL 4.2 - 1 1.0 [facility] Erythrocytes [#/volume] in Blood by Automated count 4.63 10^6/uL 4. 50 - 6.30 [facility] Hemoglobin [Mass/volume] in Blood 12.0 g/dL 14.0 - 16.0 L [facility] Hematocrit [Volume Fraction] of Blood by Automated count 38.3 % 4 1.0 - 51.0 L [facility] Erythrocyte mean corpuscular volume [Entitic volume] by Auto mated count 82.7 fL 80.0 - 94.0 [facility] Erythrocyte mean corpuscular hemoglobin [Entitic mass] by Automated count 25.9 pg 27.0 - 34.0 L [facility] Erythrocyte mean corpuscular hemoglobin concentration [Mass/volume] by Automated count 31.3 g/dL 31.0 - 36.0 [facility] Erythrocyte distribution width [Ratio] by Automated count 19.6 % 11.5 - 14.8 H [facility] Platelets [#/volume] in Blood by Automated count 205 10^3/uL 150 - 45 0 [facility] Platelet mean volume [Entitic volume] in Blood by Automated count 10.7 fL 7.4 - 10.4 H [facility] ID Date Data Source [id number] 09/30/2020 07:19:00 AM EDT [facility] Value Range Interpretation Code Description Data Sanjuana rce(s) Supporting Document(s) Triiodothyronine (T3) Free [Mass/volume] in Serum or Plasma 2.0 pg/ mL 2.0-4.4 [facility] ID Date Data Source [id number] 09/29/2020 08:28:00 AM EDT [facility] Value Range Interpretation Code Description Data Sanjuana rce(s) Supporting Document(s) Thyroxine (T4) free index in Serum or Plasma by calculation 1.60 NG/DL 0.93 - 1.70 [facility] ID Date Data Source [id number] 09/29/2020 08:28:00 AM EDT [facility] Value Range Interpretation Code Description Data Sanjuana rce(s) Supporting Document(s) Thyrotropin [Units/volume] in Serum or Plasma by Detec tion limit <= 0.05 mIU/L 1.23 uIU/mL 0.47 - 5.01 [facility] ID Date Data Source [id number] 09/29/2020 08:28:00 AM EDT [facility] Value Range Interpretation Code Description Data Sanjuana rce(s) Supporting Document(s) Ferritin [Mass/volume] in Serum or Plasma 196.2 ng/mL 5.0 - 244 [facility] ID Date Data Source [id number] 09/29/2020 08:26:00 AM EDT [facility] Value Range Interpretation Code Description Data Sanjuana rce(s) Supporting Document(s) Magnesium [Mass/volume] in Serum or Plasma 1.4 MG/DL 1.7 - 2.2 L [facility] ID Date Data Source [id number] 09/29/2020 08:26:00 AM EDT [facility] Name Value Range Interpretation Code Description Data Sanjuana rce(s) Supporting Document(s) [facility] L[facility] Cholesterol [Mass/volume] in Serum or Plasma 116 MG/DL 131 - 200 L [facility] Deprecated Triglyceride [Mass/volume] in Serum or Plasma 145 MG/DL 3 5 - 160 [facility] HDL 36 MG/DL 29 - 86 [facility] al Cholesterol in LDL [Mass/volume] in Serum or Plasma by Direc t assay 61 mg/dL 65 - 175 L [facility] Cholesterol.total/Cholesterol in HDL [Mass Ratio] in Serum o r Plasma 3.2 3.4 - 4.9 L [facility] LDL/HDL 1.69 1.00 - 3.55 [facility] ital CVE RISK CHOL/HDL LDL/HDLMEN: 1/2 AVERAGE 3.43 1.00 AVERAGE 4.97 3.55 2X AVERAGE 9.55 6.25 3X AVERAGE 23.99 7.99WOMEN: 1/2 AVERAGE 3.27 1.47 AVERAGE 4.44 3.22 2X AVERAGE 7.05 5.03 3X AVERAGE 11.04 6.14 ID Date Data Source [id number] 09/29/2020 08:26:00 AM EDT [facility] Name Value Range Interpretation Code Description Data Sanjuana rce(s) Supporting Document(s) Iron [Mass/volume] in Serum or Plasma 53 UG/DL 42 - 135 [facility] Iron binding capacity.unsaturated [Mass/volume] in Serum or Plasma 162 UG/DL 112 - 347 [facility] Iron binding capacity [Mass/volume] in Serum or Plasma 215 ug/dL 250 - 450 L [facility] Iron saturation [Mass Fraction] in Serum or Plasma 25 % [facility] ID Date Data Source [id number] 09/29/2020 08:26:00 AM EDT [facility] Name Value Range Interpretation Code Description Data Sanjuana rce(s) Supporting Document(s) COMPREHENSIVE METABOLIC PANEL [facility] COMPREHENSIVE METABOLIC PANEL Sodium [Moles/volume] in Serum or Plasma 133 mEq/L 134 - 153 L [facility] Potassium [Moles/volume] in Serum or Plasma 4.0 mEq/L 3.6 - 5.0 [facility] Chloride [Moles/volume] in Serum or Plasma 96 mEq/L 98 - 107 L [facility] Carbon dioxide, total [Moles/volume] in Serum or Plasma 28 MEQ/L 22 - 30 [facility] Glucose [Mass/volume] in Serum or Plasma 252 MG/DL 70 - 99 H [facility] BUN 15 MG/DL 7 - 21 [facility] al Creatinine [Mass/volume] in Serum or Plasma 0.6 MG/DL 0.7 - 1.5 L [facility] BUN/CREAT 25 8 - 27 [facility] al Protein [Mass/volume] in Serum or Plasma 5.7 G/DL 6.3 - 8.2 L [facility] Albumin [Mass/volume] in Serum or Plasma 3.3 G/DL 3.9 - 5.0 L [facility] Globulin [Mass/volume] in Serum by calculation 2.4 GM/DL 2.4 - 3.2 [facility] A/G RATIO 1.4 0.8 - 2.0 [facility] Calcium [Mass/volume] in Serum or Plasma 8.5 MG/DL 8.4 - 10.2 [facility] Bilirubin.total [Mass/volume] in Serum or Plasma <0.7 MG/DL 0.2 - 1.3 [facility] Alkaline phosphatase [Enzymatic activity/volume] in Serum or Plasma 65 U/L 38 - 126 [facility] Aspartate aminotransferase [Enzymatic activity/volume] in Serum or Plasma 32 U/L 5 - 40 [facility] Alanine aminotransferase [Enzymatic activity/volume] in Seru m or Plasma 72 U/L 7 - 56 H [facility] Anion gap 3 in Serum or Plasma 9.0 mmol/L 8.0 - 16.0 [facility] AGE 65 yrs [facility] al NON-AA GFR >60 mL/min [facility] ital AFR AMER GFR >60 mL/min [facility] Male GFR In terprentation 20-49 [...] >32 mL/min Normal ID Date Data Source [id number] 09/29/2020 08:26:00 AM EDT [facility] Name Value Range Interpretation Code Description Data Sanjuana rce(s) Supporting Document(s) Hemoglobin A1c/Hemoglobin.total in Blood 7.6 % 4.4 - 6.1 H [facility] {A1]{HB] ID Date Data Source [id number] 09/24/2020 11:27:00 AM EST [facility] [address] [place] [address] PHONE: [phone] FAX: [phone] Name .................. : JAROD Ross Acct Number.................. : [id number] ROOM. ................. : TR-03 Number ................... : [id number] Stay type ............. : E/R Discharge Date......... ... : Admit Date ......... : 04/06 Admit Phys .................... : WILFRID PA Date of ....... : 1955 Family Phys ................... : ADY Phone .................. : [phone] Age ................................ : 65 Film# .................. .:[id number] Sex ................................. : M Unsigned transcriptions are preliminary reports and do not represent a medical or legal document CT CTA CHEST NON-CORONARY Talon Andrade 37491 COMPLETE:09/22/20 19:18 [facility] 5938 Reason(s): positive D-Dimer hypoxia CTA OF [...] dose: 616.7 mGycm Page 1 of 2 [place] [address] PHONE: [phone] FAX: [phone] Name .................. : JAROD Ross Acct Number.................. : [id number] ROOM. ................. : TR-03 MR Number ................... : [id number] Stay type ............. : E/R Discharge Date......... ... : Admit Date ......... : 09/22/20 Admit Phys .................... : WILFRID BASILIO Date of ....... : 1955 Family Phys ................... : KALINSAKSHIPATRICK Denilson ne .................. : [phone] Age ................................ : 65 Film# .................. .:[id number] Sex ................................. : M Unsigned transcriptions are preliminary reports and do not represent a medical or legal document CT CTA CHEST NON-CORONARY [place] [address]676 COMPLETE:09/22/20 19:18 [facility] 5938 Reason(s): positive D-Dimer hypoxia Contrast agent in mL: 75 Isovue 370 Method of administration: Intravenous Electronically Reviewed and Signed By Patric Toscano M.D. , 09/24/20 11:27, [facility] Transcribe Initials: DZ , Transcribe Date: 09/22/20 23:30, Dictation Date: Copy for: 002 [facility] Copy for: 710 [facility] REC Page 2 of 2 Name Value Range Interpretation Code Description Data Sanjuana rce(s) Supporting Document(s) ID Date Data Source [id number] 09/23/2020 10:49:00 PM [place] [address] [place] [address] RESPIRATORY CARE REPORT ==== ---------NAME------- NUMBER SEX AGE ADMIT DISC. XRAY# F/C CARLTON Ross [id number] M 65 09/23/20 [id number] M4 I/P DATE OF : 1955 M/R# [id number] #: [phone] CCU2 LOCATION: [facility] [address] COMPLETE:09/23/20 00:4 5 T 72779 PHYSICIAN: RADHA BASILIO Name Value Range Interpretation Code Description Data Sanjuana rce(s) Supporting Document(s) ID Date Data Source [id number] 09/23/2020 01:50:00 PM EST [facility] [address] [place] [address] PHONE: [phone] FAX: [phone] Name .................. : JAROD Ross Acct Number.................. : [id number] ROOM. ................. : 119-1 Number ................... : [id number] Stay type ............. : O/P Discharge Date......... ... : Admit Date ......... : 09/22/20 Admit Phys .................... : RADHA PRATHER Date of ....... : 1955 Family Phys ................... : ADY Phone .................. : [phone] Age ................................ : 65 Film# .................. .:[id number] Sex ................................. : M Unsigned transcriptions are preliminary reports and do not represent a medical or legal document CHEST 1 VIEW [address]38 COMPLETE:09/22/20 16:30 [facility] 5921 Reason(s): Shortness of [...] By Mahamed Machado MD , 09/23/20 13:50, AML Transcribe Initials: DZ , Transcribe Date: 09/23/20 01:39, Dictation Date: Copy for: 002 [facility] Copy for: [address] [place] [address] Page 1 of 1 Name Value Range Interpretation Code Description Data Sanjuana rce(s) Supporting Document(s) ID Date Data Source [id number] 09/23/2020 10:49:00 AM EST [facility] [address] [place] [address] PHONE: [phone] FAX: [phone] Name .................. : JAROD Ross Acct Number.................. : [id number] ROOM. ................. : TR-03 Number ................... : [id number] Stay type ............. : E/R Discharge Date......... ... : Admit Date ......... : 04/06 Admit Phys .................... : WILFRID BASILIO Date of ....... : 1955 Family Phys ................... : ADY Phone .................. : [phone] Age ................................ : 65 Film# .................. .:[id number] Sex ................................. : M Unsigned transcriptions are preliminary reports and do not represent a medical or legal document CT HEAD W/O CONTRAST [address]5470 COMPLETE:09/22/20 20:00 [facility] 5939 Reason(s): Altered Sense [...] By Patric Toscano M.D. , 09/23/20 10:49, [facility] Transcribe Initials: LEI , Transcribe Date: 09/22/20 23:18, Dictation Date: Copy for: [address] [place] [address] Page 1 of 1 Name Value Range Interpretation Code Description Data Sanjuana rce(s) Supporting Document(s) ID Date Data Source [id number] 09/23/2020 10:15:[address] [facility] Name Value Range Interpretation Code Description Data Sanjuana rce(s) Supporting Document(s) SARS coronavirus 2 RNA Not Detected [facility] This lab was ordered by [facility] and reported by [facility]. ID Date Data Source [id number] 09/25/2020 07:20:00 AM EST [facility] Name Value Range Interpretation Code Description Data Sanjuana rce(s) Supporting Document(s) SARS-CoV-2, DOMINICK Not Detected Not Detected [facility] This nucleic acid amplification test was developed and its performancecharacteristics determined by [facility]. Nucleic acidamplification tests include RT-PCR and TMA. [...] in this assay. ID Date Data Source [id number] 09/22/2020 02:52:00 PM EST [facility] 1 OrderSheet [facility] Emergency Department [address] [place] [address] Phone #: ext- [phone] 09/22/2020 14:52 Patient: DIANA OLIVERA [facility]#: [id number] Sex: M : 1955 Age: 65yWEIGHT:83.8 kg [...] 15:29 Jae Marcelino R.N. Physician;Blood Culture STAT 15:11 09/22/2020 15:53 Kimi Marcelinoq10m X2 (Sched Johnny Yuen R.N. 2 OrderSheet [facility] Emergency Department [address] [place] [address] Phone #: ext- [phone] 09/22/2020 14:52 [id number] Sex[facility] M : 1955 Age: 65y15:11 09/22/2020) Physician;Blood Culture STAT 15:11 09/22/2020 15:53 Kimi Marcelinoq10m X2 (Sched Johnny Yuen R.N.15:21 09/22/2020) Physician;Culture, Urine STAT 15:11 09/22/2020 15:29 Kimi Marcelino(Urine, Catheter) Johnny Yuen R.N. Physician;Lactic Acid STAT 15:11 09/22/2020 15:53 Kimi Marcelino R.N. Physician;COVID-19 CAH (Not STAT 16:32 09/22/2020 16:42 Pérez,Symptomatic as [facility]) Physician; Per(09/22/20) (Not First protocol; Tonya) (Hospitalized) [...] 17:00 09/22/2020 17:04 Kimi Marcelino 3 OrderSheet [facility] Emergency Department [address] [place] [address] Phone #: ext- [phone] 09/22/2020 14:52 Patient: [...] rce(s) Supporting Document(s) ID Date Data Source [id number] 09/22/2020 02:52:00 PM EST [facility] 1 Medication Reconciliation Report [facility] Emergency Department [address] [place] [address] Phone #: ext- [phone] 09/22/2020 14:52 Patient: [...] dose: 09/22/2020 1200 2 Medication Reconciliation Report [facility] Emergency Department [address] [place] [address] Phone #: ext- [phone] 09/22/2020 14:52 Patient: [...] rce(s) Supporting Document(s) ID Date Data Source [id number] 09/22/2020 02:52:00 PM [facility] 1 Medication Administration Record [facility] Emergency Department [address] [place] [address] Phone #: ext- [phone] 09/22/2020 14:52 Patient: DIANA OLIVERA Sex: M : 1955 Age: 65yWeight: 83.8 kgHeight/Length: 72 inBMI: 25.1ALLERGIES: No Known Drug Allergy Date/Time Medication Administered Medication OrderedStart NS [IV] NS IV : Bolus 500 mL, then 55367:04 09/22/2020 Dose: IV Fluids mL/hr (NOW)Kimi Marcelino R.N. Rate: 250 mL/hr over 2 hour(s)---- Bolus: 500 mL over 1 hour(s)Stop Dispensed: 1000 mL bag02:00 09/23/2020 Site: #2 right Maryellen Arredondo R.N. Name Value Range Interpretation Code Description Data Sanjuana rce(s) Supporting Document(s) ID Date Data Source [id number] 09/22/2020 02:52:00 PM [facility] 1 General Instructions [facility] Emergency Department [address] [place] [address] Phone #: ext- [phone] 09/22/2020 14:52 Patient: DIANA OLIVERA Sex: M : 1955 Age: 65yAcute mental status change with lethargy.Moderate dehydration.Hypoxia.(Electronically signed by Physician Carina 09/22/2020 19:02)Encephalopathy.(Electronically signed by Susan Marrufo MD 09/23/2020 07:19) Name Value Range Interpretation Code Description Data Sanjuana rce(s) Supporting Document(s) ID Date Data Source [id number] 09/22/2020 02:52:00 PM [facility] 1 Clinical Report - Nurses [facility] Emergency Department [address] [place] [address] Phone #: cjb- [phone] 09/22/2020 14:52 [id number] Sex: [facility] : 1955 Age: 65yTRIAGE Arrived [...] test the beginning of Aug). 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 [...] a day. 2 Clinical Report - Nurses [facility] Emergency Department [address] [place] [address] Phone #: ext- [phone] 09/22/2020 14:52 Patient: DIANA OLIVERA Sex: M : 1955 Age: 65yBisacodyl Rectal [...] a day after meals. --14:58 09/22/20 Julio Patel, RNAtorvastatin Calcium Oral 80 mg, daily at bedtime, last dose 09/21/2020 1900. --15:15 3/9/21 Maryellen Longoria R.N.Lisinopril Oral 2.5 mg, crispin ly, last dose 09/22/2020699. --15:16 09/22/20 Maryellen Longoria R.N.Niacor Oral (Tablet 500 mg) 2 tablets, daily, last dose 09/22/2020 07. --15:17 09/22/20 Maryellen Longoria R.N.Biotene Dry Mouth Gentle Mouth/Throat, as needed. --15:21 09/22/20 Maryellen Longoria R.N.Diflucan Oral 150 mg, , x5 days, last dose 09/22/20699. --15:21 09/22/20 Maryellen Longoira R.N.Fish Oil Oral (Capsule 1000 mg) 1 capsule, daily, last dose 09/22/2020699. --15:26 09/22/20 Maryellen Longoria R.N.Glipizide Oral 10 mg, daily, last dose 09/22/2020899. --15:27 09/22/20 Maryellen Longoria R.N.Latanoprost Ophthalmic, daily [...] Reason - other.Lactobacillus Oral, 3x a day. --14:09/22/20 Julio Patel RNThe following entry was struck by Maryellen Longoria R.N., 15:31 (09/22/20) Reason - other.guaiFENesin ER Oral (Tablet Extended Release 12 Hour 600 mg), 2x a day. --14:09/22/20 ERICA VelasquezThe following entry was struck by Maryellen Longoria R.N., 15:31 (09/22/20) Reason - other.Amiodarone HCL Oral 200 mg, 2x a day. --14:09/22/20 Julio Patel RNThe following entry was struck by Maryellen Longoria R.N., 15:31 (09/22/20) Reason - other.Zinc Oral (Capsule 220 (50 Zn) mg) 1 capsule, daily. --14:09/22/20 Julio Patel RNThe following entry was struck by Maryellen Longoria R.N., 15:31 (09/22/20) Reason - other.Senna Oral (Capsule 8.6 mg) 1 capsule, 2x a day. --14:09/22/20 Julio Patel RNThe following entry was struck by Maryellen Longoria R.N., 15:30 (09/22/20) Reason - other.Oscal 500/200 D-3 Oral, 2x a day. --14:09/22/20 Julio Patel RNThe following entry was struck by Maryellen Longoria R.N., 15:30 (09/22/20) Reason - other.Lidocaine patch. --14:09/22/20 Julio Patel RN 3 Clinical Report - Nurses [facility] Emergency Department [address] [place] [address] Phone #: ext- [phone] 09/22/2020 14:52 Patient: DIANA OLIVERA [facility]#: [id number] Sex: M : 1955 Age: 65yThe following [...] was struck and corrected by Maryellen Longoria R.NElizabeth, 15:20 (09/22/20) Reason forcorrection - other(correction). ProAir [...] RN .Allergies 4 Clinical Report - Nurses [facility] Emergency Department [address] [place] [address] Phone #: ext- [phone] 09/22/2020 14:52 Patient: DIANA OLIVERA Sex: M [...] .Cardiac catherization. 5 Clinical Report - Nurses [facility] Emergency Department [address] [place] [address] Phone #: ext- [phone] 09/22/2020 14:52 Patient: DIANA OLIVERA Sex: M : 1955 Age: 65y Melanoma removal 1998. Rotator Cuff Surgery. Stent placement 2015. --15:32 3/9/21 Maryellen Longoria R.N. History PAST MEDICAL HX: [...] R.N.PHYSICAL ASSESSMENT 6 Clinical Report - Nurses [facility] Emergency Department [address] [place] [address] Phone #: ext- [phone] 09/22/2020 14:52 Patient: DIANA OLIVERA [facility]#: [id number] Sex: M : 1955 Age: 65y GENERAL [...] administered by nasal cannula at 3 liters. school bus monitor, NIBP monitor and pulse oximeter placed on patient; radiation monitor- Lead II; monitor alarms on. EKG time: [...] oxygen and running 100%, oxygen removed and bid writer asked for ABG to be done orders [...] Marcelino R.N. 7 Clinical Report - Nurses [facility] Emergency Department [address] [place] [address] Phone #: ext- [phone] 09/22/2020 14:52 Patient: [...] CT by stretcher with IV, mask and radiologic technology instructor. --18:09 09/22/20 Pérez, Wanda18:27 09/22/20. Patient returned from CT by stretcher with IV, mask and radiologic technology instructor. --18:37 09/22/[facility] Wanda18:42 09/22/20.Rounding: Personal care / toileting: assisted [...] CT by stretcher with IV, mask and radiologic technology instructor. --19:50 09/22/20 Pérez, Wanda21:33 09/22/2020 IV Fluids [...] (Verbal order per Dr. Marrufo). --21:34 09/22/20 Meelcio Mauro RNCardiac monitor, NIBP monitor and pulse oximeter placed on patient. The patient is sleeping. ( Patientwakes up when you call his name, answers questions appropriately. sleeping soundly. Radiological Equipment Specialist onSinus at 68 BPM.). --21:35 09/22/20 Gabrielle PérezThe patient is resting quietly. Overall patient status is the same. ( US in room.).GENERAL / NEURO / PSYCH: Patient is calm and cooperative. Decreased awareness.RESPIRATORY: No respiratory distress. 8 Clinical Report - Nurses [facility] Emergency Department [address] [place] [address] Phone #: ext- [phone] 09/22/2020 14:52 Patient: DIANA OLIVERA A cct#: [id number] Sex: M : 1955 Age: 65yCVS: Normal [...] position. Brakes of bed on. --02:09 09/23/20Matthew Paul02:45 09/22/20. BP: 100/62 taken on the left [...] strong). RR: 19 (regular, unlabored and normal). W9aewcoeubbd: 100% on ventilator. Temp: deferred. Additional comments: [...] disoriented. Patient 9 Clinical Report - Nurses [facility] Emergency Department [address] [place] [address] Phone #: ext- [phone] 09/22/2020 14:52 Patient: [...] Maryellen Longoria 10 Clinical Report - Nurses [facility] Emergency Department [address] [place] [address] Phone #: ext- [phone] 09/22/2020 14:52 [id number] Sex: M : 1955 Age: 65y R.N. [...] flushes easily. --09:55 09/23/20 Maryellen Longoria R.N. 09:35 09/23/2020 Site #1 [...] rce(s) Supporting Document(s) ID Date Data Source [id number] 09/22/2020 02:52:00 PM [facility] 1 Clinical Report - Physicians/Mid Levels [facility] Emergency Department [address] [place] [address] Phone #: ext- [phone] 09/22/2020 14:52 [facility]: [id number] Sex: M : 1955 Age: 65y Time Seen: 15:05 09/22/2020. Arrived- By ambulance. Historian- patient and [facility] nurse.HISTORY OF PRESENT ILLNESS Chief Complaint: CHANGED MENTAL STATUS. difficulty breathing and low blood pressure. This started yesterday Had narcotis stopped and is still present. The patient has been disoriented and confused and had trouble concentrating and is described as having decreased responsiveness. Has not "felt strange". Not unresponsive or post-ictal. The patient was not found unresponsive. retirement resident. No history of chronic dementia. No [...] Disease. 2 Clinical Report - Physicians/Mid Levels [facility] Emergency Department [address] [place] [address] Phone #: ext- [phone] 09/22/2020 14:52 [facility]: [id number] Sex: M : 1955 Age: 65yAtrial Fibrillation.Cellulitis.COVID-19.Diabetes [...] 1900. 3 Clinical Report - Physicians/Mid Levels [facility] Emergency Department [address] [place] [address] Phone #: [phone] ayi- [phone] 09/22/2020 14:52 Patient: DIANA OLIVERA Sex: M [...] supple. 4 Clinical Report - Physicians/Mid Levels [facility] Emergency Department [address] [place] [address] Phone #: ext- [phone] 09/22/2020 14:52 Patient: DIANA OLIVERA Sex: M [...] # _[id number] 09/22/20.DW . KIT EXP DATE _98-31-89 09/22/20.DW . NORMAL RANGE IS NOT DETECTEDNEGATIVE [...] - 11.0) 5 Clinical Report - Physicians/Mid Levels [facility] Emergency Department [address] [place] [address] Phone #: hrg- [phone] 09/22/2020 14:52 Patient: DIANA OLIVERA Sex: M [...] Male GFR Interprentation 20-49 yrs >60 mL/min Wvjhrd75-63 yrs >56 mL/min Normal 60-69 yrs >49 mL/min Normal 70-79yrs>42 mL/min Normal 80 and above >35 mL/min Normal Female GFRInterpretation 20-39 yrs >60 mL/min Normal 40-49 yrs >58 mL/minNormal 50- 59 yrs >51 mL/min Normal 60-69 yrs >45 mL/min Dbtszg76-62 yrs >39 mL/min Normal 80 and above >32 mL/min NormalAmmonia Level: (ILEANA: 09/22/2020 15:40) ( MsgRcvd 09/22/2020 16:45) Final results 6 Clinical Report - Physicians/Mid Levels [facility] Emergency Department [address] [place] [address] Phone #: ext- [phone] 09/22/2020 14:52 Patient: DIANA OLIVERA Sex: M : 1955 Age: 65y Test Result Flag Units (Reference) AMMONIA 49.0 UG/DL (27.2 - 102)D-Dimer: (ILEANA: 09/22/2020 15:40) ( MsgRcvd 09/22/2020 16:38) Final results Test Result Flag Units (Reference) D-DIMER QUANT 0.74 H ug/mL (0.27 - 0.50)PT/PTT: (ILEANA: 09/22/2020 15:40) ( [facility] 09/22/2020 16:38) Final results Test Result Flag Units (Reference) PROTIME 27.2 H SECONDS (11.0 - 15.5) INR 2.39 H (0.93 - 1.23) PTT 49.0 H SECONDS (24.8 - 36.7) \\BLDo\\INR INTERPRETATION\\BLDx\\ Therapeutic range for Coumadin andrelated oral anticoagulants. -International Normalized Ratio (INR): 2.0 - 3.0 for VenousThrombosis, Pulmonary Embolus, Tissue heart valves, Acute NM Atrial Fibrillation, Valvular heart diseaseand recurrent Systemic Embolism. -International Normalized Ratio (INR): 2.5 - 3.5 forMechanical Prosthetic valve.Troponin-T: (ILEANA: 09/22/2020 15:40) ( [facility] 09/22/2020 16:46) Final results Test Result Flag Units (Reference) TROPONIN T 0.03 NG/ML (0.00 - 0.10) TROPONIN T0.1 ng/ml Recommended as the clinical threshold value forTroponin T.Urinalysis: (ILEANA: 09/22/2020 17:25) ( [facility] 09/22/2020 18:19) Final results Test Result Flag [...] Few ALactic Acid: (ILEANA: 09/22/2020 15:40) ( [facility] [place]/22/[place] 16:25) Final results Test Result Flag Units (Reference) LACTIC ACID 1.9 MMOL/L (0.2 - 2.2)Chest 1 View: (ILEANA: 09/22/2020 15:11) ( [facility] 09/22/2020 16:30) In Progress 7 Clinical Report - Physicians/Mid Levels [facility] Emergency Department [address] [place] [address] Phone #: ext- [phone] 09/22/2020 14:52 Patient: DIANA OLIVERA Sex: M : 1955 Age: 65y CHEST 1 VIEW Reason(s): Shortness of Breath TRANSPORTATION: P IV? O2? Oxygen?(No) Room: ED ABG: (ILEANA: 09/22/2020 15:09) ( [facility] 09/22/2020 15:13) Canceled.PROGRESS AND PROCEDURES Course of Care: 15:48 Sep 22 2020. 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 Exam completed. Treatment plan discussed with patient . Records reviewed. Labs, EKG and chest x-ray ordered. IV fluids started.). (Significant dehydration with hypotension. IV saline start ed.). 18:14 Sep 22 2020. (Spoke with hospitalist feels patient needs higher level of care.). ED care transferred. Case discussed with Dr Marrufo. Assumed care. Brief hx: sent from [place] for hypotension hypoxia and altered mental status. [...] 09/23/2020. 8 Clinical Report - Physicians/Mid Levels [facility] Emergency Department [address] [place] [address] Phone #: ext- [phone] 09/22/2020 14:52 Patient: DIANA OLIVERA Sex: M : 1955 Age: 65yLABS, X-RAYS, AND EKG Laboratory Tests: CT Head W/O Cont: (ILEANA: 09/22/2020 18:16) ( MsgRcvd 09/22/2020 23:19) In Progress CT HEAD W/O CONTRAST Reason(s): Altered Sense of Awareness TRANSPORTATION: S IV? O2? Oxygen?(Yes) Room: E Exam CT HEAD W/O CONTRAST [address]: [phone] FAX: [phone] Name .................. : JAROD Ross Acct Number.................. : [id number] ROOM. ................. : TR-03 MR Number ................... : [id number] Stay type ............. : E/R Discharge Date......... ... : Admit Date ......... : 09/22/20 Admit Phys .................... : WILFRID BASILIO Date of ....... : 1955 Family Phys ................... : ADY Phone .................. : [phone] Age . ............................... : 65 Film# .................. .:[id number] Sex ................................. : M Unsigned transcriptions are preliminary reports and do not represent a medical or legal document CT HEAD W/O CONTRAST 07264 COMPLETE:09/22/20 20:00 BEM 5939 Reason(s): Altered Sense [...] 854.5 mGycm Electronically Reviewed and Signed By DCTSHAHID SIGNDATE, HENRIQUE Transcribe Initials: LEI , Transcribe Date: 09/22/20 23:18, Dictation Date: <<REPDIST>> 9 Clinical Report - Physicians/Mid Levels [facility] Emergency Department [address] [place] [address] Phone #: ext- [phone] 09/22/2020 14:52 Patient: DIANA OLIVERA Sex: M : 1955 Age: 65y Page 1 of 1CT CTA CHEST NON-CORONARY W CON INC PP: (ILEANA: 09/22/2020 17:33) ( MsgRcvd 09/22/2020 23:33) InProgressCT CTA CHEST NON-CORONARY W CON INC PPReason(s): positive D-Dimer hypoxiaTRANSPORTATION: S IV? IV?(Yes) O2? Oxygen?(Yes) R Test Result Flag Units (Reference) CT CTA CHEST [place] [address] PHONE: [phone] FAX: [phone] -- Name .................. : JAROD Ross Acct Number.................. : [id number] ROOM. ................. : TR-03 MR Number ................... : [id number] Stay type ............. : E/R Discharge Date......... ... : Admit Date ......... : 09/22/20 Admit Phys .................... : WILFRID BASILIO Date of ....... : 1955 Family Phys ................... : ADY Phone .................. : [phone] Age ................................ : 65 Film# .................. .:[id number] Sex ........ ......................... : M -- Unsigned transcriptions are preliminary reports and do not represent a medical or legal document CT CTA CHEST NON-CORONARY W C 68853 COMPLETE:09/22/20 19:18 [facility] 5938 Reason(s): positive D-Dimer hypoxia -- -- [...] -- 10 Clinical Report - Physicians/Mid Levels [facility] Emergency Department [address] [place] [address] Phone #: ext- [phone] 09/22/2020 14:52 Patient: DIANA OLIVERA Sex: M : 1955 Age: 65y CT dose: 616.7 mGycm -- -- Page 1 of 2 [facility] [address] [place] [address] PHONE: [phone] FAX: [phone] -- Name .................. : JAROD Ross Acct Number.................. : [id number] ROOM. ................. : [facility]03 MR Number ................... : [id number] Stay type ............. : E/R Discharge Date......... ... : Admit Date ......... : 09/22/20 Admit Phys .................... : WILFRID BASILIO Date of ....... : 1955 Family Phys ................... : SHYAMDANAE Phone .................. : [phone] Age ................................ : 65 Film# .................. .:[id number] Sex ................................. : M -- Unsigned transcriptions are preliminary reports and do not represent a medical or legal document CT CTA CHEST NON-CORONARY [place] [address] COMPLETE:09/22/20 19:18 [facility] 5938 Reason(s): positive D-Dimer hypoxia -- -- -- -- Contrast agent in mL: 75 Isovue 370 -- Method of administration: Intravenous -- -- Electronically Reviewed and Signed By DCTSHAHID , SIGNDATEHENRIQUE -- Transcribe Initials: LEI , Transcribe Date: 09/22/20 23:30, Dictation Date: -- -- <<REPDIST>> -- -- -- -- Page 2 of 2 --COVID-19 CAH: (ILEANA: 09/22/2020 16:45) ( MsgRcvd 09/22/2020 18:45) Final results Test Result Flag Units (Reference) COVID-19 NOT DETECTED COVID-19 REENTER NOT DETECTED { PROCEDURAL CONTROL VALID KIT LOT # _[id number] 09/22/20.1843.DW . KIT EXP DATE _51-29-56 80/09/21.DW . NORMAL RANGE IS NOT DETECTEDNEGATIVE RESULTS SHOULD BE TREATEDAS PRESUMPTIVE AND, IF INCONSISTENT WITHCLINICAL SIGNS AND SYMPTOMS OR NECESSARY FOR PATIENT MANAGEME NT, SHOULDBETESTED WITH DIFFERENT AUTHORIZED OR CLEARED MOLECULAR TESTS. NEGATIVE RESULTSDO NOT PRECLUDE [id number] AND SHOULD NOT BE USED THE SOLE BASISFOR PATIENT MANAGEMENT DECISIONS.ABG: (ILEANA: 09/22/2020 15:33) ( MsgRcvd 09/22/2020 16:29) Final results Test Result Flag Units (Reference) CHRISTIANA TEST POSITIVE A FiO2 ROOM AIR SITE RADIAL LT 11 Clinical Report - Physicians/Mid Levels [facility] Emergency Department [address] [place] [address] Phone #: ext- [phone] 09/22/2020 14:52 Patient: [...] 126) 12 Clinical Report - Physicians/Mid Levels [facility] Emergency Department [address] [place] [address] Phone #: ext- [phone] 09/22/2020 14:52 Patient: DIANA OLIVERA Sex: M : 1955 Age: 65y SGOT/AST 197 H U/L (5 - 40) SGPT/ALT 382 H U/L (7 - 56) ANION GAP 8.0 mmol/L (8.0 - 16.0) AGE 65 yrs NON-AA GFR >60 mL/min AFR AMER GFR >60 mL/min Male GFR Interprentation 20-49 yrs >60 mL/min Xdgtxt46-30 yrs >56 mL/min Normal 60-69 yrs >49 mL/min Normal 70-79yrs>42 mL/min Normal 80 and above >35 mL/min Normal Female GFRInterpretation 20-39 yrs >60 mL/min Normal 40-49 yrs >58 mL/minNormal 50-59 yrs >51 mL/min Normal 60-69 yrs >45 mL/min Ftgxum34-29 yrs >39 mL/min Normal 80 and above >32 mL/min NormalAmmonia Level: (ILEANA: 09/22/2020 15:40) ( [facility] 09/22/2020 16:45) Final results Test Result Flag Units (Reference) AMMONIA 49.0 UG/DL (27.2 - 102)D-Dimer: (ILEANA: 09/22/2020 15:40) ( [facility] 09/22/2020 16: 38) Final results Test Result Flag Units (Reference) D-DIMER QUANT 0.74 H ug/mL (0.27 - 0.50)PT/PTT: (ILEANA: 09/22/2020 15:40) ( [facility] 09/22/2020 16:38) Final results Test Result Flag Units (Reference) PROTIME 27.2 H SECONDS (11.0 - 15.5) INR 2.39 H (0.93 - 1.23) PTT 49.0 H SECONDS (24.8 - 36.7) \\BLDo\\INR INTERPRETATION\\BLDx\\ Therapeutic range for Coumadin andrelated oral anticoagulants. -International Normalized Ratio (INR): 2.0 - 3.0 for VenousThrombosis, Pulmonary Embolus, Tissue heart valves, Acute NM Atrial Fibrillation, Valvular heart diseaseand recurrent Systemic Embolism. -International Normalized Ratio (INR): 2.5 - 3.5 forMechanical Prosthetic valve.Troponin-T: (ILEANA: 09/22/2020 15:40) ( [facility] 09/22/2020 16:46) Final results Test Result Flag Units (Reference) TROPONIN T 0.03 NG/ML (0.00 - 0.10) TROPONIN T0.1 ng/ml Recommended as the clinical threshold value forTroponin T.Urinalysis: (ILEANA: 09/22/2020 17:25) ( [facility] 09/22/2020 18:19) Final results Test Result Flag [...] Negat 13 Clinical Report - Physicians/Mid Levels [facility] Emergency Department [address] [place] [address] Phone #: ext- [phone] 09/22/2020 14:52 Patient: DIANA OLIVERA Sex: M : 1955 Age: 65y UROBILINOGEN NOR (less than 1.0 MICROSCOPIC See Below WBC 7 - 10 A (NORMAL: NONE RBC 1 - 3 (NORMAL: NONE EPITHELIAL FEW (NORMAL: NONE BACTERIA Trace (NORM AL: NONE MUCOUS Trace (NORMAL: NONE YEAST Few A Lactic Acid: (ILEANA: 09/22/2020 15:40) ( [facility] 09/22/2020 16:25) Final results Test Result Flag [...] facility due to his history. I called [facility] and spoke to Dr. Piedra. I discussed with him that his ams is probably multi-factorial but most likely due to over medication of his narcotics from fentanyl patch of 100mcg and his every [address] Piedra felt that pt should be admitted here to [place] and he would be happy to take the patient if the patient decompensated. I called Doc back. He spoke to his medical reimbursement specialist. He called me back stating he [...] Encephalopathy. 14 Clinical Report - Physicians/Mid Levels [facility] Emergency Department [address] [place] [address] Phone #: ext- [phone] 09/22/2020 14:52 Patient: DIANA OLIVERA Sex: M : 1955 Age: 65y(Electronically signed by Susan Marrufo MD 09/23/2020 07:19) Name Value Range Interpretation Code Description Data Sanjuana rce(s) Supporting Document(s) ID Date Data Source [id number] 09/23/2020 08:06:00 AM EST [facility] Name Value Range Interpretation Code Description Data Sanjuana rce(s) Supporting Document(s) CHRISTIANA TEST POSITIVE [facility] 30% O2 pH of Arterial blood 7.30 7.34 - 7.44 L [facility] Carbon dioxide [Partial pressure] in Blood 54.8 mm/HG 35.0 - 45.0 H [facility] Oxygen [Partial pressure] in Blood 113.7 mm/HG 75.0 - 100 H [facility] Bicarbonate [Moles/volume] in Blood 26.3 meq/L 22.0 - 26.0 H [facility] TCO2 28.0 meq/L 23.0 - 27.0 [facility] excess in Blood by calculation -0.8 -2.0 - 2.0 [facility] O2 SAT 97.8 % 95.0 - 98.0 [facility] ital ID Date Data Source [id number] 09/23/2020 06:11:00 AM [facility] Name Value Range Interpretation Code Description Data Sanjuana rce(s) Supporting Document(s) Thyrotropin [Units/volume] in Serum or Plasma by Detec tion limit <= 0.05 mIU/L 0.73 uIU/mL 0.47 - 5.01 [facility] ID Date Data Source [id number] 09/23/2020 06:07:00 AM [facility] Name Value Range Interpretation Code Description Data Sanjuana rce(s) Supporting Document(s) Phosphate [Mass/volume] in Serum or Plasma 2.4 MG/DL 2.5 - 4.5 L [facility] ID Date Data Source [id number] 09/23/2020 06:07:00 AM [facility] Name Value Range Interpretation Code Description Data Sanjuana rce(s) Supporting Document(s) Magnesium [Mass/volume] in Serum or Plasma 1.4 MG/DL 1.7 - 2.2 L [facility] ID Date Data Source [id number] 09/23/2020 06:06:00 AM [facility] Name Value Range Interpretation Code Description Data Sanjuana rce(s) Supporting Document(s) COMPREHENSIVE METABOLIC PANEL [facility] COMPREHENSIVE METABOLIC PANEL Sodium [Moles/volume] in Serum or Plasma 144 mEq/L 134 - 153 [facility] [facility] Potassium [Moles/volume] in Serum or Plasma 4.6 mEq/L 3.6 - 5.0 [facility] Chloride [Moles/volume] in Serum or Plasma 110 mEq/L 98 - 107 H [facility] Carbon dioxide, total [Moles/volume] in Serum or Plasma 28 MEQ/L 22 - 30 [facility] Glucose [Mass/volume] in Serum or Plasma 263 MG/DL 70 - 99 H [facility] BUN 31 MG/DL 7 - 21 [facility] Creatinine [Mass/volume] in Serum or Plasma 0.5 MG/DL 0.7 - 1.5 L [facility] BUN/CREAT 62 8 - [address] [facility] Protein [Mass/volume] in Serum or Plasma 4.8 G/DL 6.3 - 8.2 L [facility] Albumin [Mass/volume] in Serum or Plasma 2.9 G/DL 3.9 - 5.0 L [facility] Globulin [Mass/volume] in Serum by calculation 1.9 GM/DL 2.4 - 3.2 L [facility] A/G RATIO 1.5 0.8 - 2.0 [facility] Calcium [Mass/volume] in Serum or Plasma 8.6 MG/DL 8.4 - 10.2 [facility] Bilirubin.total [Mass/volume] in Serum or Plasma <0.7 MG/DL 0.2 - 1.3 [facility] Alkaline phosphatase [Enzymatic activity/volume] in Serum or Plasma 58 U/L 38 - 126 [facility] Aspartate aminotransferase [Enzymatic activity/volume] in Serum or Plasma 157 U/L 5 - 40 H [facility] Alanine aminotransferase [Enzymatic activity/volume] in Seru m or Plasma 315 U/L 7 - 56 H [facility] Anion gap 3 in Serum or Plasma 6.0 mmol/L 8.0 - 16.0 L [facility] AGE 65 yrs [facility] al NON-AA GFR >60 mL/min [facility] ital AFR AMER GFR >60 mL/min [facility] Male GFR In terprentation 20-49 [...] >32 mL/min Normal ID Date Data Source [id number] 09/23/2020 06:02:00 AM [facility] Name Value Range Interpretation Code Description Data Sanjuana rce(s) Supporting Document(s) Ammonia [Mass/volume] in Plasma 36.0 UG/DL 27.2 - 102 [facility] ID Date Data Source [id number] 09/23/2020 05:57:00 AM [facility] Name Value Range Interpretation Code Description Data Sanjuana rce(s) Supporting Document(s) Prothrombin time (PT) 24.5 SECONDS 11.0 - 15.5 [facility] INR in Platelet poor plasma by Coagulation assay 2.09 0.93 - 1. 23 H [facility] \\BLDo\\INR INTERPRETATION\\BLDx\\ Therapeutic range for Coumadin and related oral anticoagulants. - International Normalized Ratio (INR): 2.0 - 3.0 for Venous Thrombosis, Pulmonary Embolus, Tissue heart valves, Acute NM, Atrial Fibrillation, Valvular heart disease and recurrent Systemic Embolism. -International Normalized Ratio (INR): 2.5 - 3.5 for Mechanical Prosthetic valve. ID Date Data Source [id number] 09/23/2020 05:47:00 AM [facility] Name Value Range Interpretation Code Description Data Sanjuana rce(s) Supporting Document(s) Lactate [Moles/volume] in Serum or Plasma 1.3 MMOL/L 0.2 - 2.2 [facility] ID Date Data Source [id number] 09/23/2020 05:46:00 AM [facility] Name Value Range Interpretation Code Description Data Sanjuana rce(s) Supporting Document(s) CBC W/AUTOMATED DIFF [facility] COMPLETE BLOOD COUNT Leukocytes [#/volume] in Blood by Automated count 8.7 10^3/uL 4.2 - 1 1.0 [facility] Erythrocytes [#/volume] in Blood by Automated count 4.01 10^6/uL 4. 50 - 6.30 L [facility] Hemoglobin [Mass/volume] in Blood 10.6 g/dL 14.0 - 16.0 L [facility] Hematocrit [Volume Fraction] of Blood by Automated count 35.2 % 4 1.0 - 51.0 L [facility] Erythrocyte mean corpuscular volume [Entitic volume] by Auto mated count 87.8 fL 80.0 - 94.0 [facility] Erythrocyte mean corpuscular hemoglobin [Entitic mass] by Automated count 26.4 pg 27.0 - 34.0 L [facility] Erythrocyte mean corpuscular hemoglobin concentration [Mass/volume] by Automated count 30.1 g/dL 31.0 - 36.0 L [facility] Erythrocyte distribution width [Ratio] by Automated count 19.9 % 11.5 - 14.8 H [facility] Platelets [#/volume] in Blood by Automated count 184 10^3/uL 150 - 45 0 [facility] Platelet mean volume [Entitic volume] in Blood by Automated count 9.5 fL 7.4 - 10.4 [facility] Neutrophils/100 leukocytes in Blood by Automated count 72.0 % 37. 0 - 80.0 [facility] Lymphocytes/100 leukocytes in Blood by Manual count 17.3 % 25.0 - 40.0 L [facility] Monocytes/100 leukocytes in Blood by Automated count 9.1 % 3.0 - 8.0 H [facility] Eosinophils/100 leukocytes in Blood by Automated count 0.9 % 0.0 - 7.0 [facility] Basophils/100 leukocytes in Blood by Automated count 0.5 % 0.0 - 2.0 [facility] %IG 0.2 % 0.0 - 0.0 [facility] %NRBC 0.0 % 0.0 - 0.0 [facility] al Neutrophils [#/volume] in Blood by Automated count 6.22 10^3/uL 2.00 - 6.90 [facility] Lymphocytes [#/volume] in Blood by Automated count 1.50 10^3/uL 0.60 - 3.40 [facility] Monocytes [#/volume] in Blood by Automated count 0.79 10^3/uL 0.00 - 0.90 [facility] Eosinophils [#/volume] in Blood by Automated count 0.08 10^3/uL 0.00 - 0.70 [facility] Basophils [#/volume] in Blood by Automated count 0.04 10^3/uL 0.00 - 0.20 [facility] #IG 0.02 10^3/uL 0.00 - 0.10 [facility] ospital #NRBC 0.00 10^3/uL 0.00 - 0.00 [facility] ospital MANUAL DIFF NOT INDICATED [facility] RBC MORPH NOT INDICATED [facility] spital ID Date Data Source [id number] 09/23/2020 02:31:00 AM EST [facility] [address] [place] [address] ---------NAME--------- NUMBER SEX AGE ADMIT DISC. XRAY# F/C TYPE JAROD Ross [id number] M 65 09/22/20 [id number] MB4 O/P DATE OF : 1955 M/R# [id number] #: [id number] LOCATION: TRANSCRIBED: 09/23/20 2:31 IF US ABD LIMITED [id number] COMPLETED:09/23/20 1:29 ADB 5948 {REASON FOR ABDOMEN: [...] rce(s) Supporting Document(s) ID Date Data Source [id number] 09/23/2020 01:46:00 AM EST [facility] Name Value Range Interpretation Code Description Data Sanjuana rce(s) Supporting Document(s) CHRISTIANA TEST POSITIVE A [facility] FiO2 2[facility] S[facility] RADIAL RT [facility] pH of Arterial blood 7.28 7.34 - 7.44 L [facility] Carbon dioxide [Partial pressure] in Blood 64.6 mm/HG 35.0 - 45.0 [facility] Oxygen [Partial pressure] in Blood 93.0 mm/HG 75.0 - 100 [facility] Bicarbonate [Moles/volume] in Blood 29.6 meq/L 22.0 - 26.0 H [facility] TCO2 31.6 meq/L 23.0 - 27.0 [facility] Base excess in Blood by calculation 1.7 -2.0 - 2.0 [facility] O2 SAT 95.9 % 95.0 - 98.0 [facility] ID Date Data Source [id number] 09/25/2020 07:29:00 AM EST [facility] Name Value Range Interpretation Code Description Data Sanjuana rce(s) Supporting Document(s) CULTURE URINE [facility] _CULTURE URINE_$$[id number]$$[id number]$$840513$$311293$$535516$$635521$$992870$$741199$$080712$$ 764651$$740402$$850732$$616706$$577692$$781578$$627361$$805495$$693582$$194032$$ 588364$$913451$$846258$$375731$$234454$$555086$$799686$$[id number] -- Continued on next page --Patient: JAROD Ross Order: [id number] Page 2Culture: CULTURE URINE Status: Final ====$$[id number]$$[id number] DATE/TIME: 09/25/2020 00:06Culture: CULTURE URINE Status: FinalIsolate 1 Yeast Flag: A . . . . . . .8uxaylmco58,000-25,000 colony forming units per mLRequest for further identification must be madewithin 1 week.Urine Culture,Comprehensive: [id number] Flag: AP1 Test performed by: [facility]IA #: [id number] [address] [id number] [facility] [id number] Director : Abilio Ratliff MD NPI #:Photography Editor : [email or web address] REF ID Date Data Source [id number] 09/22/2020 06:18:00 PM EST [facility] Name Value Range Interpretation Code Description Data Sanjuana rce(s) Supporting Document(s) URINALYSIS [facility] URINALYSIS SOURCE R [facility] COLOR yellow NORMAL: Yellow [facility] CLARITY clear NORMAL: Clear [facility] Specific gravity of Urine by Test strip 1.020 1.001 - 1.030 [facility] pH 5 5 - 9 [facility] Glucose [Mass/volume] in Urine by Test strip 250 NORMAL: Negat dung A [facility] Bilirubin.total [Presence] in Urine by Test strip NEG NORMAL: Negative [facility] Ketones [Presence] in Urine by Test strip NEG NORMAL: Negative [facility] Protein [Mass/volume] in Urine by Test strip 30 NORMAL: Negat dung [facility] Nitrite [Presence] in Urine by Test strip NEG NORMAL: Negative [facility] BLOOD NEG NORMAL: Negative [facility] Leukocyte esterase [Presence] in Urine by Test strip 25 SUSAN L: Negative [facility] Urobilinogen [Mass/volume] in Urine by Test strip NOR less ben n 1.0 mg/dL [facility] MICROSCOPIC See Below [facility] ital WBC 7 - 10 NORMAL: NONE SEEN A [facility] Erythrocytes [#/volume] in Urine by Test strip 1 - 3 NORMAL: NON E SEEN [facility] EPITHELIAL FEW NORMAL: NONE SEEN [facility] Bacteria [Presence] in Urine sediment by Light microscopy Tr ilia NORMAL: NONE SEEN [facility] Mucus [Presence] in Urine sediment by Light microscopy Trace NORMAL: NONE SEEN [facility] YEAST Few A [facility] ID Date Data Source [id number] 09/22/2020 04:45:00 PM EST [facility] Name Value Range Interpretation Code Description Data Sanjuana rce(s) Supporting Document(s) COVID19 Case rprt NOT DETECTED [facility] This lab was ordered by [facility] and reported by [facility]. ID Date Data Source [id number] 09/22/2020 06:44:00 PM EST [facility] NOT DETECTEDNOT DETECTED{ PROC EDURAL CONTROL VALID KIT LOT # _[id number] 09/22/20.DW . KIT EXP DATE _52-25-04 09/22/20.DW . NORMAL RANGE IS NOT DETECTEDNEGATIVE [...] rce(s) Supporting Document(s) ID Date Data Source [id number] 09/27/2020 06:40:00 PM EDT [facility] [address] Name Value Range Interpretation Code Description Data Sanjuana rce(s) Supporting Document(s) Bacteria identified in Blood by Culture [facility] NO GROWTH AFTER 5 DAYS ID Date Data Source [id number] 09/29/2020 02:41:00 PM EDT [facility] Name Value Range Interpretation Code Description Data Sanjuana rce(s) Supporting Document(s) CULTURE BLOOD [facility] _CULTURE BLOOD_ TEST PERFORM ED AT [place] [address] [address] [facility]# [id number] SEE SCANNED REPORT{ PRELIM ID Date Data Source [id number] 09/22/2020 04:46:00 PM EST [facility] Name Value Range Interpretation Code Description Data Sanjuana rce(s) Supporting Document(s) COMPREHENSIVE METABOLIC PANEL [facility] COMPREHENSIVE METABOLIC PANEL Sodium [Moles/volume] in Serum or Plasma 142 mEq/L 134 - 153 [facility] Potassium [Moles/volume] in Serum or Plasma 4.8 mEq/L 3.6 - 5.0 [facility] Chloride [Moles/volume] in Serum or Plasma 107 mEq/L 98 - 107 [facility] Carbon dioxide, total [Moles/volume] in Serum or Plasma 27 MEQ/L 22 - 30 [facility] Glucose [Mass/volume] in Serum or Plasma 300 MG/DL 70 - 99 H [facility] BUN 44 MG/DL 7 - [address] [facility] Creatinine [Mass/volume] in Serum or Plasma 0.7 MG/DL 0.7 - 1.5 [facility] BUN/CREAT 63 8 - [address] [facility] Protein [Mass/volume] in Serum or Plasma 5.0 G/DL 6.3 - 8.2 L [facility] Albumin [Mass/volume] in Serum or Plasma 3.0 G/DL 3.9 - 5.0 L [facility] Globulin [Mass/volume] in Serum by calculation 2.0 GM/DL 2.4 - 3.2 L [facility] A/G RATIO 1.5 0.8 - 2.0 [facility] Calcium [Mass/volume] in Serum or Plasma 9.3 MG/DL 8.4 - 10.2 [facility] Bilirubin.total [Mass/volume] in Serum or Plasma <0.7 MG/DL 0.2 - 1.3 [facility] Alkaline phosphatase [Enzymatic activity/volume] in Serum or Plasma 65 U/L 38 - 126 [facility] Aspartate aminotransferase [Enzymatic activity/volume] in Serum or Plasma 197 U/L 5 - 40 H [facility] Alanine aminotransferase [Enzymatic activity/volume] in Seru m or Plasma 382 U/L 7 - 56 H [facility] Anion gap 3 in Serum or Plasma 8.0 mmol/L 8.0 - 16.0 [facility] 65 [facility] NON-AA GFR >60 mL/min [facility] AFR AMER GFR >60 mL/min [facility] Male GFR In terprentation 20-49 [...] >32 mL/min Normal ID Date Data Source [id number] 09/22/2020 04:46:00 PM [facility] Name Value Range Interpretation Code Description Data Sanjuana rce(s) Supporting Document(s) TROPONIN T 0.03 NG/ML 0.00 - 0.10 [facility] TROPONIN T0.1 ng/ml Recommended as the c linical threshold value forTroponin T. ID Date Data Source [id number] 09/22/2020 04:45:00 PM [facility] Name Value Range Interpretation Code Description Data Sanjuana rce(s) Supporting Document(s) Ammonia [Mass/volume] in Plasma 49.0 UG/DL 27.2 - 102 [facility] ID Date Data Source [id number] 09/22/2020 04:38:00 PM [facility] Value Range Interpretation Code Description Data Sanjuana rce(s) Supporting Document(s) Fibrin D-dimer FEU [Mass/volume] in Platelet poor plasma 0.74 ug /mL 0.27 - 0.50 H [facility] ID Date Data Source [id number] 09/22/2020 04:38:00 PM [facility] Value Range Interpretation Code Description Data Sanjuana rce(s) Supporting Document(s) Prothrombin time (PT) 27.2 SECONDS 11.0 - 15.5 [facility] INR in Platelet poor plasma by Coagulation assay 2.39 0.93 - 1. 23 H [facility] aPTT in Blood by Coagulation assay 49.0 SECONDS 24.8 - 36.7 H [facility] \\BLDo\\INR INTERPRETATION\\BLDx\\ Therapeutic range for Coumadin and related oral anticoagulants. - International Normalized Ratio (INR): 2.0 - 3.0 for Venous Thrombosis, Pulmonary Embolus, Tissue heart valves, Acute NM Atrial Fibrillation, Valvular heart disease and recurrent Systemic Embolism. - International Normalized Ratio (INR): 2.5 - 3.5 for Mechanical Prosthetic valve. ID Date Data Source [id number] 09/22/2020 04:25:00 PM [facility] Name Value Range Interpretation Code Description Data Sanjuana rce(s) Supporting Document(s) Lactate [Moles/volume] in Serum or Plasma 1.9 MMOL/L 0.2 - 2.2 [facility] ID Date Data Source [id number] 09/22/2020 04:18:00 PM [facility] Name Value Range Interpretation Code Description Data Sanjuana rce(s) Supporting Document(s) CBC W/AUTOMATED DIFF [facility] COMPLETE BLOOD COUNT Leukocytes [#/volume] in Blood by Automated count 9.2 10^3/uL 4.2 - 1 1.0 [facility] Erythrocytes [#/volume] in Blood by Automated count 4.25 10^6/uL 4. 50 - 6.30 L [facility] Hemoglobin [Mass/volume] in Blood 11.1 g/dL 14.0 - 16.0 L [facility] Hematocrit [Volume Fraction] of Blood by Automated count 37.2 % 4 1.0 - 51.0 L [facility] Erythrocyte mean corpuscular volume [Entitic volume] by Auto mated count 87.5 fL 80.0 - 94.0 [facility] Erythrocyte mean corpuscular hemoglobin [Entitic mass] by Automated count 26.1 pg 27.0 - 34.0 L [facility] Erythrocyte mean corpuscular hemoglobin concentration [Mass/volume] by Automated count 29.8 g/dL 31.0 - 36.0 L [facility] Erythrocyte distribution width [Ratio] by Automated count 19.9 % 11.5 - 14.8 H [facility] Platelets [#/volume] in Blood by Automated count 194 10^3/uL 150 - 45 0 [facility] Platelet mean volume [Entitic volume] in Blood by Automated count 9.4 fL 7.4 - 10.4 [facility] Neutrophils/100 leukocytes in Blood by Automated count 77.9 % 37. 0 - 80.0 [facility] Lymphocytes/100 leukocytes in Blood by Manual count 12.2 % 25.0 - 40.0 L [facility] Monocytes/100 leukocytes in Blood by Automated count 8.6 % 3.0 - 8.0 H [facility] Eosinophils/100 leukocytes in Blood by Automated count 0.4 % 0.0 - 7.0 [facility] Basophils/100 leukocytes in Blood by Automated count 0.5 % 0.0 - 2.0 [facility] %IG 0.4 % 0.0 - 0.0 H [facility] %NRBC 0.0 % 0.0 - 0.0 [facility] al Neutrophils [#/volume] in Blood by Automated count 7.17 10^3/uL 2.00 - 6.90 H [facility] Lymphocytes [#/volume] in Blood by Automated count 1.12 10^3/uL 0.60 - 3.40 [facility] Monocytes [#/volume] in Blood by Automated count 0.79 10^3/uL 0.00 - 0.90 [facility] Eosinophils [#/volume] in Blood by Automated count 0.04 10^3/uL 0.00 - 0.70 [facility] Basophils [#/volume] in Blood by Automated count 0.05 10^3/uL 0.00 - 0.20 [facility] #IG 0.04 10^3/uL 0.00 - 0.10 [facility] ospital #NRBC 0.00 10^3/uL 0.00 - 0.00 [facility]spital MANUAL DIFF NOT INDICATED [facility] RBC MORPH NOT INDICATED [facility] ID Date Data Source [id number] 09/29/2020 02:41:00 PM EDT [facility] Name Value Range Interpretation Code Description Data Sanjuana rce(s) Supporting Document(s) CULTURE BLOOD [facility] _CULTURE BLOOD_ [place] [address] IA# [id number] SEE SCANNED REPORT{ PRELIM ID Date Data Source [id number] 09/22/2020 04:26:00 PM EST [facility] Name Value Range Interpretation Code Description Data Sanjuana rce(s) Supporting Document(s) CHRISTIANA TEST POSITIVE A [facility] FiO2 ROOM AIR [facility] SITE RADIAL LT [facility] pH of Arterial blood 7.36 7.34 - 7.44 [facility] Carbon dioxide [Partial pressure] in Blood 47.7 mm/HG 35.0 - 45.0 [facility] Oxygen [Partial pressure] in Blood 42.2 mm/HG 75.0 - 100 L [facility] Bicarbonate [Moles/volume] in Blood 26.2 meq/L 22.0 - 26.0 [facility] TCO2 27.7 meq/L 23.0 - 27.0 H [facility] Base excess in Blood by calculation 0.3 -2.0 - 2.0 [facility] O2 SAT 84.7 % 95.0 - 98.0 L [facility] ID Date Data Source [id number] 09/22/2020 01:28:41 PM EST [facility] Name Value Range Interpretation Code Description Data Sanjuana rce(s) Supporting Document(s) ED Provider Notes [facility] QNJWGk4aZrKNOpRt24/VCYrlZPGih7FpAZruEYe7JHciFQUnM7CiLSR7jR8yPAF0YXsNMhZkDxOlRwQ4 lbm [file] zSo5g9jQVIDQMV/h/juan manuel/Uqh5IgJYkeHlnhWmPs5LusV+ErMZMl2mhvwHKt0OdPVW8/gK2qwDoXCuDGh [file] E+DQogICAgICAgICAgICAgICAgICAgICAgICAgICAgICAgICAgICAgICAgICAgICAgICAgICAgICAgIC AgICAgICAgICAgICAgICAgICAgICAgICAgICAgICAg ICAgICAgICAgICAgDQogICAgICAgICAgICAgICAgICAgICAgICAgICAgICAgICAgICAgICAgICAgICAg ICAgICAgICAgICAgICAgICAgICAgICAgICAgICAgICAgICAgICAgICAgICAgICAgICAgICAgDQogICAg ICAgICAgICAgICAgICAgICAgICAgICAgICAgICAgIC AgICAgICAgICAgICAgICAgICAgICAgICAgICAgICAgICAgICAgICAgICAgICAgICAgICAgICAgICAgIC AgICAgDQogICAgICAgICAgICAgICAgICAgICAgICAgICAgICAgICAgICAgICAgICAgICAgICAgICAgIC AgICAgICAgICAgICAgICAgICAgICAgICAgICAgICAg ICAgICAgICAgICAgICAgDQogICAgICAgICAgICAgICAgICAgICAgICAgICAgICAgICAgICAgICAgICAg ICAgICAgICAgICAgICAgICAgICAgICAgICAgICAgICAgICAgICAgICAgICAgICAgICAgICAgICAgDQog ICAgICAgICAgICAgICAgICAgICAgICAgICAgICAgIC AgICAgICAgICAgICAgICAgICAgICAgICAgICAgICAgICAgICAgICAgICAgICAgICAgICAgICAgICAgIC AgICAgICAgDQogICAgICAgICAgICAgICAgICAgICAgICAgICAgICAgICAgICAgICAgICAgICAgICAgIC AgICAgICAgICAgICAgICAgICAgICAgICAgICAgICAg ICAgICAgICAgICAgICAgICAgDQogICAgICAgICAgICAgICAgICAgICAgICAgICAgICAgICAgICAgICAg ICAgICAgICAgICAgICAgICAgICAgICAgICAgICAgICAgICAgICAgICAgICAgICAgICAgICAgICAgICAg DQogICAgICAgICAgICAgICAgICAgICAgICAgICAgIC AgICAgICAgICAgICAgICAgICAgICAgICAgICAgICAgICAgICAgICAgICAgICAgICAgICAgICAgICAgIC AgICAgICAgICAgDQogICAgICAgICAgICAgICAgICAgICAgICAgICAgICAgICAgICAgICAgICAgICAgIC AgICAgICAgICAgICAgICAgICAgICAgICAgICAgICAg QKKmRXWoJKCkPPFwYULgHAYeUWUdBCw9M7qaRNArJUUdBN4uZOe9Xj4+JDgVNkUgYJX6zlNsjZ8YCJ4o h1TwNJdjCUFft6PzQMi8CF0XPBOnQQitMH5UZYkifj2LMZGfIJKkqUYSw1qxZuQwANA4AIUgXedfCA8D FRHiR4hevnLrAYZtVKBOGRvaCKXWERyyGVRQWBHcKA FlBgIoLuImDUBqQCUzNGAXZOF0LPHfQeCfSOtgSY1Ln9PebJC3YNm+Pl7JEW6jk2XyOYsaMBKcRA0azd 9AJChPCyOaD8AhmuY7ZYHrNXRzPq9SAQWpNNObeXR0KYKpBBHYRaXqP1YxzY49FFWVBl8+DQplbmRvYm tETlBySBJtv6MlEKv3IU3QARPrZNg5vVOdCAOkVMQa ddveKQSaEo83SUMqQkysXHAlguVcrSXSDG0laQMxtSO9bIniLL6oMTQwYm2bRq5nRBArFPMkYtLiPKWJ PQ2WUYZaOEQhpTDlPIYkMQCBYF3GQYbcTAG4HjlztjBmjMErLEjzSZ3YJRYgekSpVyfpERGUEOs+Pg0K IR0fk6TjHVa4IXLgSG6vvo1ZQPeVWeKaY5D1eEIcH4 T7VLcbCg9AXYZpQSPiYdxfTNAFDKdeUQ1NRA0hclQ2YD5KqJOzQPSjINUtuRAtUHe1I39lcHZmBRyiJH 0KICA+Rosanne+Vi3QVUIgXWMfJLQdVdDrLYCTCeHrN0JtN2MZp1MyJ9ObVC72xKazkrLxIYbaRM0BRA1sSG WpRDZNAH8ItWKfeZ8pbzPxRLSnELGIHqNnI86kaCDd HSHuNFM0XTCfYq7SGIWyA6DeuvIttJykaxXjMOTkARMERL5ZTQdekpHitUIzlDpoDQ62jUfiNQ4TDi6F TcMnPF3ebq7JrJLoAh0YEKC3Cd5FRLVyYYJqVXSlRBK7BOQtOvOgMXjlWMDnBPKgFVO7XKTkMZZnHR9L WsUjLFFyDHGlZZurXPKcACQhra1RIEEiQRB8ONn0ER ElIVLgNERuTDhuEJGgAELlELY4HWOzHOQqZR5GJwLlPIDiWLY9NFRzQGDzEKKdjs3ZIYSyRXKsVjIrZf GlSYTaLZSiGZhrTWDrSFR0GKYvQCKtRBVpBH0NArRdOLIuBUE0DGIyRKIlZYHvmw8IEVWfRDZhQLSsFz EtAQKoUDFbBJbbGUPoYPU2NoOdFGOoBBXwEE2ODhTg KCBgSMT9DcRyWSCkLCZrzl8AZPRqGTMwGVR1JjSvSGVrLNRaXJfyGDVoBCCzFeNiKPGqUDGzKI3NWmWc OLAgAMZ9TMgdQTFlIOObas7ISNDlMGBoWFN8FzDnSURqEBZhHPulXLYlEZP5ZwGrVNSxTCXnPO7FRaHq QARpYQE2KKRmSPHyCRAvvq0DVGCaBJGuZqj0ANIoCQ HjKQOjWYzeAGWrRRB1XXR3UAJqEUQgHA8RZtBqQHBgXJuhOdPuGXThMKOpkf3NDJKhAJEgDCDyDYHdON VmSSFfEDfzLMNwWUC9GmA0WABhNUQzRS9EWeRrAKTnARq1DjQgYMTwVKZvon5MOQWfUHEtIAN3SKKwTH WuLQMrXBmpMZVgSPAsLyD7DVSqEEQxTW7DEpOyXZZq FbG1SUKkYQUgYGOuts9IMLHeXWJjRTCmEYIcCFToIZGdMOoaFXNwACYlFZNlHJEwAHBtQR7ZJbCiQJFp JeNkSdLlNKPfDTZfrm0YIMUmMXExMvD3FRPsWQArDPJeOWtuOSSkPOU1BgP9YCOeEIUhPI6BXdAvQSTy YwIkGWNvRTViZKJkug8RRGBuRTPkCNJ4MdJoIVCyEU UfNEibEKBqRUR3KHdsPECtLPVqQD5LDzSiOKCiVyD1ShdbDGHvHXGzhl0FWDXoWINyJQy8JMHyZYAnSC WuHJgpZYNyYKVgTMB5SDNqYDYlGQ0QHzVpSGCpIEB7AniaWHQvSGAubf3FWENxARS0HgJwMvHoDPXyQK WxAXvvXMAzMDSeOMj5CCZxIKAfRW4UNvZpSMMlKBZa UrGpIPFcFCOuyw3YwWTdhXfnkc9DQZbDOz1CoHaqAWJwEPvuRn6tqMF6ITYsSIGDNd2QexQuXYKyEJSK MArvEUJwXSMsAcufJTk9LqGcCKFvXZMrEDKsSWWhWQQ6JCfcJCBtXdN1DlBlKkUvOMDrInI8KKO4HBBe NQZfQUF9OCL8DCQzDxK+MY1pMMv+Kt7Zy2InwpJ5csFrICmlYRU7BppIDaWxNK0VJIg= ID Date Data Source [id number] 09/27/2020 06:18:00 PM EDT [facility] [id number] Name Value Range Interpretation Code Description Data Sanjuana rce(s) Supporting Document(s) Bacteria identified in Blood by Culture [facility] NO GROWTH AFTER 5 DAYS ID Date Data Source [id number] 09/28/2020 09:43:00 AM EDT [facility] Value Range Interpretation Code Description Data Sanjuana rce(s) Supporting Document(s) [facility] BLOOD CULTURE [facility] _CULTURE BLOOD_ TEST PERFORME D AT [address] [address] CLIA# [id number] SEE SCANNED REPORT{ PRELIM ID Date Data Source [id number] 09/28/2020 09:43:00 AM EDT [facility] Value Range Interpretation Code Description Data Sanjuana rce(s) Supporting Document(s) [facility] BLOOD CULTURE [facility] _CULTURE BLOOD_ TEST PERFORME D AT [address] [address] CLIA# [id number] SEE SCANNED REPORT{ PRELIM ID Date Data Source [id number] 09/22/2020 07:42:00 AM EST [facility] Value Range Interpretation Code Description Data Sanjuana rce(s) Supporting Document(s) Lactate [Moles/volume] in Serum or Plasma 1.4 MMOL/L 0.2 - 2.2 [facility] ID Date Data Source [id number] 09/21/2020 09:58:00 PM [facility] Value Range Interpretation Code Description Data Sanjuana rce(s) Supporting Document(s) COMPREHENSIVE METABOLIC PANEL [facility] COMPREHENSIVE METABOLIC PANEL Sodium [Moles/volume] in Serum or Plasma 141 mEq/L 134 - 153 [facility] Potassium [Moles/volume] in Serum or Plasma 4.8 mEq/L 3.6 - 5.0 [facility] Chloride [Moles/volume] in Serum or Plasma 108 mEq/L 98 - 107 H [facility] Carbon dioxide, total [Moles/volume] in Serum or Plasma 26 MEQ/L 22 - 30 [facility] Glucose [Mass/volume] in Serum or Plasma 224 MG/DL 70 - 99 H [facility] BUN 52 MG/DL 7 - 21 [facility] Creatinine [Mass/volume] in Serum or Plasma 0.9 MG/DL 0.7 - 1.5 [facility] BUN/CREAT 58 8 - 27 H [facility] al Protein [Mass/volume] in Serum or Plasma 5.1 G/DL 6.3 - 8.2 L [facility] Albumin [Mass/volume] in Serum or Plasma 3.0 G/DL 3.9 - 5.0 L [facility] Globulin [Mass/volume] in Serum by calculation 2.1 GM/DL 2.4 - 3.2 L [facility] A/G RATIO 1.4 0.8 - 2.0 [facility] Calcium [Mass/volume] in Serum or Plasma 8.7 MG/DL 8.4 - 10.2 [facility] Bilirubin.total [Mass/volume] in Serum or Plasma <0.7 MG/DL 0.2 - 1.3 [facility] Alkaline phosphatase [Enzymatic activity/volume] in Serum or Plasma 65 U/L 38 - 126 [facility] Aspartate aminotransferase [Enzymatic activity/volume] in Serum or Plasma 309 U/L 5 - 40 H [facility] Alanine aminotransferase [Enzymatic activity/volume] in Seru m or Plasma 402 U/L 7 - 56 H [facility] Anion gap 3 in Serum or Plasma 7.0 mmol/L 8.0 - 16.0 L [facility] AGE 65 yrs [facility] al NON-AA GFR >60 mL/min [facility] ital AFR AMER GFR >60 mL/min [facility] Male GFR In terprentation 20-49 [...] >32 mL/min Normal ID Date Data Source [id number] 09/21/2020 09:45:00 PM EST [facility] Name Value Range Interpretation Code Description Data Sanjuana e(s) Supporting Document(s) CBC NO DIFF [facility] ital COMPLETE BLOOD COUNT Leukocytes [#/volume] in Blood by Automated count 9.0 10^3/uL 4.2 - 1 1.0 [facility] Erythrocytes [#/volume] in Blood by Automated count 4.18 10^6/uL 4. 50 - 6.30 L [facility] Hemoglobin [Mass/volume] in Blood 11.0 g/dL 14.0 - 16.0 L [facility] Hematocrit [Volume Fraction] of Blood by Automated count 37.0 % 4 1.0 - 51.0 L [facility] Erythrocyte mean corpuscular volume [Entitic volume] by Auto mated count 88.5 fL 80.0 - 94.0 [facility] Erythrocyte mean corpuscular hemoglobin [Entitic mass] by Automated count 26.3 pg 27.0 - 34.0 L [facility] Erythrocyte mean corpuscular hemoglobin concentration [Mass/volume] by Automated count 29.7 g/dL 31.0 - 36.0 L [facility] Erythrocyte distribution width [Ratio] by Automated count 19.9 % 11.5 - 14.8 H [facility] Platelets [#/volume] in Blood by Automated count 191 10^3/uL 150 - 45 0 [facility] Platelet mean volume [Entitic volume] in Blood by Automated count 9.8 fL 7.4 - 10.4 [facility] ID Date Data Source [id number] 09/18/2020 09:09:00 AM EST [facility] Name Value Range Interpretation Code Description Data Sanjuana [facility](s) Supporting Document(s) CBC NO DIFF [facility] COMPLETE BLOOD COUNT Leukocytes [#/volume] in Blood by Automated count 18.6 10^3/uL 4.2 - 11.0 H [facility] Erythrocytes [#/volume] in Blood by Automated count 3.83 10^6/uL 4. 50 - 6.30 L [facility] Hemoglobin [Mass/volume] in Blood 10.2 g/dL 14.0 - 16.0 L [facility] Hematocrit [Volume Fraction] of Blood by Automated count 32.7 % 4 1.0 - 51.0 L [facility] Erythrocyte mean corpuscular volume [Entitic volume] by Auto mated count 85.4 fL 80.0 - 94.0 [facility] Erythrocyte mean corpuscular hemoglobin [Entitic mass] by Automated count 26.6 pg 27.0 - 34.0 L [facility] Erythrocyte mean corpuscular hemoglobin concentration [Mass/volume] by Automated count 31.2 g/dL 31.0 - 36.0 [facility] Erythrocyte distribution width [Ratio] by Automated count 19.9 % 11.5 - 14.8 H [facility] Platelets [#/volume] in Blood by Automated count 232 10^3/uL 150 - 45 0 [facility] Platelet mean volume [Entitic volume] in Blood by Automated count 10.6 fL 7.4 - 10.4 H [facility] ID Date Data Source [id number] 09/20/2020 09:29:00 AM EST [facility] Name Value Range Interpretation Code Description Data Sanjuana rce(s) Supporting Document(s) CULTURE URINE [facility] spital _CULTURE URINE_$$[id number]$$[id number]$$[id number]$$[id number]$$954012$$[id number]$$638065$$965022$$756144$$ 258313$$595121$$263849$$515974$$261298$$681162$$033183$$759971$$184330$$105051$$ 368892$$249885$$594879$$524029$$757070$$666130$$[id number]$$[id number] -- Continued on next page --Patient: JAROD Ross Order: [id number] Page 2Culture: CULTURE URINE Status: Final ====$$[id number]$$[id number] DATE/TIME: 09/20/2020 07:05Culture: CULTURE URINE Status: FinalIsolate 1 Yeast Flag: A . . . . . . .0zprwdygh34,000-25,000 colony forming units per mLRequest for further identification must be madewithin 1 week.Urine Culture,Comprehensive: [id number] Flag: AP1 Test performed by: [facility] #: [id number] [address] [id number] [facility] [id number] Director : Abilio Ratliff MD NPI #:Photography Editor : [email or web address] REF ID Date Data Source [id number] 09/17/2020 08:02:00 PM EST [facility] Name Value Range Interpretation Code Description Data Sanjuana rce(s) Supporting Document(s) [facility]ALYSIS [facility] URINALYSIS SOURCE [facility] COLOR yellow NORMAL: Yellow [facility] CLARITY hazy NORMAL: Clear [facility] Specific gravity of Urine by Test strip 1.025 1.001 - 1.030 [facility] pH 5 5 - 9 [facility] Glucose [Mass/volume] in Urine by Test strip NORM NORMAL: Negat [facility] Bilirubin.total [Presence] in Urine by Test strip NEG NORMAL: Negative [facility] Ketones [Presence] in Urine by Test strip 5 NORMAL: Negative [facility] Protein [Mass/volume] in Urine by Test strip 30 NORMAL: Negat [facility] Nitrite [Presence] in Urine by Test strip NEG NORMAL: Negative [facility] BLOOD 10 NORMAL: Negative [facility] Leukocyte esterase [Presence] in Urine by Test strip 100 SUSAN L: Negative [facility] Urobilinogen [Mass/volume] in Urine by Test strip NOR less ben n 1.0 mg/dL [facility] MICROSCOPIC See Below [facility] ital WBC 20 - 30 NORMAL: NONE SEEN [facility] Erythrocytes [#/volume] in Urine by Test strip 0 - 1 NORMAL: NON E SEEN [facility] EPITHELIAL FEW NORMAL: NONE SEEN [facility] Mucus [Presence] in Urine sediment by Light microscopy Trace NORMAL: NONE SEEN [facility] Crystals [type] in Urine sediment by Light microscopy See Below [facility] CALCIUM OX Trace NORMAL: NONE SEEN [facility] ID Date Data Source [id number] 09/17/2020 09:24:00 AM [facility] Name Value Range Interpretation Code Description Data Sanjuana rce(s) Supporting Document(s) CBC NO DIFF [facility] ital COMPLETE BLOOD COUNT Leukocytes [#/volume] in Blood by Automated count 16.2 10^3/uL 4.2 - 11.0 H [facility] Erythrocytes [#/volume] in Blood by Automated count 4.40 10^6/uL 4. 50 - 6.30 L [facility] Hemoglobin [Mass/volume] in Blood 11.6 g/dL 14.0 - 16.0 L [facility] Hematocrit [Volume Fraction] of Blood by Automated count 37.1 % 4 1.0 - 51.0 L [facility] Erythrocyte mean corpuscular volume [Entitic volume] by Auto mated count 84.3 fL 80.0 - 94.0 [facility] Erythrocyte mean corpuscular hemoglobin [Entitic mass] by Automated count 26.4 pg 27.0 - 34.0 L [facility] Erythrocyte mean corpuscular hemoglobin concentration [Mass/volume] by Automated count 31.3 g/dL 31.0 - 36.0 [facility] Erythrocyte distribution width [Ratio] by Automated count 20.3 % 11.5 - 14.8 H [facility] Platelets [#/volume] in Blood by Automated count 252 10^3/uL 150 - 45 0 [facility] Platelet mean volume [Entitic volume] in Blood by Automated count 10.2 fL 7.4 - 10.4 [facility] ID Date Data Source [id number] 09/17/2020 09:02:00 AM [facility] Name Value Range Interpretation Code Description Data Sanjuana rce(s) Supporting Document(s) Magnesium [Mass/volume] in Serum or Plasma 1.3 MG/DL 1.7 - 2.2 L [facility] ID Date Data Source [id number] 09/17/2020 09:02:00 AM [facility] Name Value Range Interpretation Code Description Data Sanjuana rce(s) Supporting Document(s) Thyroxine (T4) free index in Serum or Plasma by calculation 1.86 NG/DL 0.93 - 1.70 H [facility] ID Date Data Source [id number] 09/17/2020 09:02:00 AM [facility] Name Value Range Interpretation Code Description Data Sanjuana rce(s) Supporting Document(s) COMPREHENSIVE METABOLIC PANEL [facility] COMPREHENSIVE METABOLIC PANEL Sodium [Moles/volume] in Serum or Plasma 137 mEq/L 134 - 153 [facility] Potassium [Moles/volume] in Serum or Plasma 4.5 mEq/L 3.6 - 5.0 [facility] Chloride [Moles/volume] in Serum or Plasma 99 mEq/L 98 - 107 [facility] Carbon dioxide, total [Moles/volume] in Serum or Plasma 26 MEQ/L 22 - 30 [facility] Glucose [Mass/volume] in Serum or Plasma 139 MG/DL 70 - 99 H [facility] BUN 36 MG/DL 7 - [address] [facility] Creatinine [Mass/volume] in Serum or Plasma 1.1 MG/DL 0.7 - 1.5 [facility] BUN/CREAT 33 8 - 27 H [facility] Protein [Mass/volume] in Serum or Plasma 5.2 G/DL 6.3 - 8.2 L [facility] Albumin [Mass/volume] in Serum or Plasma 3.3 G/DL 3.9 - 5.0 L [facility] Globulin [Mass/volume] in Serum by calculation 1.9 GM/DL 2.4 - 3.2 L [facility] A/G RATIO 1.7 0.8 - 2.0 [facility] al Calcium [Mass/volume] in Serum or Plasma 8.8 MG/DL 8.4 - 10.2 [facility] Bilirubin.total [Mass/volume] in Serum or Plasma <0.7 MG/DL 0.2 - 1.3 [facility] Alkaline phosphatase [Enzymatic activity/volume] in Serum or Plasma 61 U/L 38 - 126 [facility] Aspartate aminotransferase [Enzymatic activity/volume] in Serum or Plasma 16 U/L 5 - 40 [facility] Alanine aminotransferase [Enzymatic activity/volume] in Seru m or Plasma 11 U/L 7 - 56 [facility] Anion gap 3 in Serum or Plasma 12.0 mmol/L 8.0 - 16.0 [facility] 65 [facility] NON-AA GFR >60 mL/min [facility] AFR AMER GFR >60 mL/min [facility] Male GFR In terprentation 20-49 [...] >32 mL/min Normal ID Date Data Source [id number] 09/17/2020 09:01:00 AM [facility] Name Value Range Interpretation Code Description Data Sanjuana rce(s) Supporting Document(s) Hemoglobin A1c/Hemoglobin.total in Blood 7.8 % 4.4 - 6.1 H [facility] {A1]{HB] ID Date Data Source [id number] 09/17/2020 08:54:00 AM [facility] Name Value Range Interpretation Code Description Data Sanjuana rce(s) Supporting Document(s) Thyrotropin [Units/volume] in Serum or Plasma by Detec tion limit <= 0.05 mIU/L 1.43 uIU/mL 0.47 - 5.01 [facility] ID Date Data Source [id number] 09/17/2020 09:46:00 AM [facility] Value Range Interpretation Code Description Data Sanjuana rce(s) Supporting Document(s) Ferritin [Mass/volume] in Serum or Plasma 240.1 ng/mL 5.0 - 244 [facility] ID Date Data Source [id number] 09/17/2020 09:43:00 AM [facility] Name Value Range Interpretation Code Description Data Sanjuana rce(s) Supporting Document(s) [facility] L[facility] Cholesterol [Mass/volume] in Serum or Plasma 122 MG/DL 131 - 200 L [facility] Deprecated Triglyceride [Mass/volume] in Serum or Plasma 134 MG/DL 3 5 - 160 [facility] HDL 35 MG/DL 29 - 86 [facility] al Cholesterol in LDL [Mass/volume] in Serum or Plasma by Direc t assay 70 mg/dL 65 - 175 [facility] Cholesterol.total/Cholesterol in HDL [Mass Ratio] in Serum o r Plasma 3.5 3.4 - 4.9 [facility] LDL/HDL 2.00 1.00 - 3.55 [facility] ital CVE RISK CHOL/HDL LDL/HDLMEN: 1/2 AVERAGE 3.43 1.00 AVERAGE 4.97 3.55 2X AVERAGE 9.55 6.25 3X AVERAGE 23.99 7.99WOMEN: 1/2 AVERAGE 3.27 1.47 AVERAGE 4.44 3.22 2X AVERAGE 7.05 5.03 3X AVERAGE 11.04 6.14 ID Date Data Source [id number] 09/17/2020 09:43:00 AM EST [facility] Name Value Range Interpretation Code Description Data Sanjuana rce(s) Supporting Document(s) Iron [Mass/volume] in Serum or Plasma 26 UG/DL 42 - 135 L [facility] Iron binding capacity.unsaturated [Mass/volume] in Serum or Plasma 167 UG/DL 112 - 347 [facility] Iron binding capacity [Mass/volume] in Serum or Plasma 193 ug/dL 250 - 450 L [facility] Iron saturation [Mass Fraction] in Serum or Plasma 13 % [facility] ID Date Data Source [id number] 09/14/2020 07:14:40 PM [facility] Name Value Range Interpretation Code Description Data Sanjuana rce(s) Supporting Document(s) Discharge Summary [facility] IJYTLx3tQsANCcEd11/SNWdtKBPgh5XwTHcxNCi7OWprVCMfS8KdMGI3tR1bQED1MBkFJxEkIkWuFvIo [facility] [file] jY6HG4OY2Z/4hHqep+IQ3Uzbcu+E17Dd7Ot/EEfgufwCfp2+fb+BQ+moisés/gs3gKT+F42Be3MI2XVxUhj0 [file] FtPyyrZWI0HW1sXQLQMb4+LSjizEXxkUbkLOENUpFqEuOrCJtxECKNPj4K ID Date Data Source [id number] 09/14/2020 11:56:26 AM [facility] Value Range Interpretation Code Description Data Sanjuana rce(s) Supporting Document(s) Glucose [Mass/volume] in Capillary blood by Glucometer 176 mg/dL 70- 140 [facility] ID Date Data Source [id number] 09/14/2020 08:15:13 AM [facility] Value Range Interpretation Code Description Data Sanjuana rce(s) Supporting Document(s) Glucose [Mass/volume] in Capillary blood by Glucometer 242 mg/dL 70- 140 [facility] ID Date Data Source [id number] 09/14/2020 04:57:22 AM [facility] Value Range Interpretation Code Description Data Sanjuana rce(s) Supporting Document(s) Vancomycin [Mass/volume] in Serum or Plasma --trough 18.7 ug/mL 10.0- 20.0 [facility] ID Date Data Source [id number] 09/13/2020 09:41:21 PM [facility] Value Range Interpretation Code Description Data Sanjuana rce(s) Supporting Document(s) Glucose [Mass/volume] in Capillary blood by Glucometer 183 mg/dL 70- 140 [facility] ID Date Data Source [id number] 09/13/2020 04:38:07 PM [facility] Value Range Interpretation Code Description Data Sanjuana rce(s) Supporting Document(s) History and Physical [facility] JTSSOw5pDxOIVvVy41/OETueCNGkh6XjAAncFPd7ZBzkWUFxC6KqRRR4dM7aFWI9ASlKNtQbWfPxBuG1 m [file] E+DQogICAgICAgICAgICAgICAgICAgICAgICAgICAgICAgICAgICAgICAgICAgICAgICAgICAgICAgIC AgICAgICAgICAgICAgICAgICAgICAgICAgICAgICAgICAgICAgICAgICAgDQogICAgICAgICAgICAgIC AgICAgICAgICAgICAgICAgICAgICAgICAgICAgICAg ICAgICAgICAgICAgICAgICAgICAgICAgICAgICAgICAgICAgICAgICAgICAgICAgICAgICAgDQogICAg ICAgICAgICAgICAgICAgICAgICAgICAgICAgICAgICAgICAgICAgICAgICAgICAgICAgICAgICAgICAg ICAgICAgICAgICAgICAgICAgICAgICAgICAgICAgIC AgICAgDQogICAgICAgICAgICAgICAgICAgICAgICAgICAgICAgICAgICAgICAgICAgICAgICAgICAgIC AgICAgICAgICAgICAgICAgICAgICAgICAgICAgICAgICAgICAgICAgICAgICAgDQogICAgICAgICAgIC AgICAgICAgICAgICAgICAgICAgICAgICAgICAgICAg ICAgICAgICAgICAgICAgICAgICAgICAgICAgICAgICAgICAgICAgICAgICAgICAgICAgICAgICAgDQog ICAgICAgICAgICAgICAgICAgICAgICAgICAgICAgICAgICAgICAgICAgICAgICAgICAgICAgICAgICAg ICAgICAgICAgICAgICAgICAgICAgICAgICAgICAgIC AgICAgICAgDQogICAgICAgICAgICAgICAgICAgICAgICAgICAgICAgICAgICAgICAgICAgICAgICAgIC AgICAgICAgICAgICAgICAgICAgICAgICAgICAgICAgICAgICAgICAgICAgICAgICAgDQogICAgICAgIC AgICAgICAgICAgICAgICAgICAgICAgICAgICAgICAg ICAgICAgICAgICAgICAgICAgICAgICAgICAgICAgICAgICAgICAgICAgICAgICAgICAgICAgICAgICAg DQogICAgICAgICAgICAgICAgICAgICAgICAgICAgICAgICAgICAgICAgICAgICAgICAgICAgICAgICAg ICAgICAgICAgICAgICAgICAgICAgICAgICAgICAgIC AgICAgICAgICAgDQogICAgICAgICAgICAgICAgICAgICAgICAgICAgICAgICAgICAgICAgICAgICAgIC BjBMEoXZUxGRUzLYJxLHWnGAUyUBGtCFYaPLTwQHIcVATqEUUsPLHfPIOsOBLsZSCxLWNmTSw0X7vaNB UmFHTmKD8qJQt0Im9+SEfDPaGlXMS7ckYrjL0GXW4k y1VlPMhoSNKms4SjDGu8XW9WLDAgASbhCC4QWMdpsy8HJWNeBSTwqRIFc7qtQjIhSWV2DDTfLrcaJS7T ZGZxI6nnzxNqMINtUVXMIOogEFLFLEqnRMKAIUDvXMWqUxJrOxYaTYChAYItPLOJBWE5LFOoWrIrQWtn HW7Av3ElmLX3OAk+Uk1YFN3jy0SlMKrfHaSyVP8zan 3FTHmAWqVfP9PhcrS6DRC2LMMfLp3NJTTuLCWzlENgLBSzKEWKQlSiP5UadT45POYKTu3+DQplbmRvYm gYOpI2OLZmo4RdBRt1RP9TGQLnBFw4yJJnSAUDALL7QKOksfM3MZKbGP7wHVGGKcIMHZF3GWLtRrabTy ViUIMtAfa5YTHWUHrLYmFbG3Yme4VdGqR2IGXrTwLy TOvaOHXiPwG2AC65tEnhUO2ANIOjRAGaNN78VOD2HFGgEj7UMf1TIzZbPU0ccx0UMoscIRUzNvnWFra9 TAydKO8RiJDvW8RphFQzl4nELtOdT4DPGWD3WQLfEn0EJDIaEpOqFDEtKPuiMT5kLIMwJOSXjDepxpE5 PU1RQX4zntPuHI3KHwUlHm3mTj8QGfPyV0AlR6DaDM GxQYXQUPufCA7BHNmoEB5xJW4Sw3WDoXEgtB0egz3SZAOpWGMuHrlywx8SUfdjR8J9yFdzEBMnRicmNK CWSLbaOV7MSFJtARR8CCHfJlUmPBFAVbPgI43fGM0OX8Oeu47gXzA6IBHqSoEfDDogOV40hOvscsEfpS GklKvqNA1GFp7+DQplbmRvYmoNCnhyZWYNCjAgNDAN OrOcBNKfEMTtJMHmHzS8BrKmOx3HHBQwNLEjUKQrStJsQGRuQMVbVBbmLAWhKQKbWuX3AJWmMNMwPF1B YnWlROMvXJX1CVXdSSHvPSFjhk0DMDYpXAGxCRC2CjZzUFNyOSNzUTguHSQoQRQ4BmJyLUDpMBTuMT7S HcMvQCNzSFF0BVVrIGAaYCKuuk2FSJFcPEMrAwqqJN MzNSXrSUYtIHppTWXsQOT6GCVtGLDkXCElLY0JCxPkOEIaSHMtUMVcMJVsJZEwfm8VSBKeTEUxIfP4QD MtHMQuHLJyGJqmYAPzPFU9CtSmXDKsEDAjTZ4MJvWyKPPxRXZ3NluuCSFsIVRnnq5ZDELxXJZzAIk8JP GiAOMrUHRkDFkaMKDxPEWxDMyzLNXtXLVgRM7YTtSv KJRlYzC2PjRdKGWgATQgpk0NQXHcBYCfNglaQyTgWJDlKPXtMZqdMZOlNKF4KVYuPWMtMHXhPS9HKwGn BYSeWhRtLNSjVFTeNXKnue6EDLQuCNYoMaTdVxSvVSPtYFUjVJsxLKYnXKQ6PmPyXWPbRFWpME8YNtFr NKLfYykfJULrQZAiRSBhus6KWFZfJOFjCPE3OJDmPI RkVZSpAOsoYWRqWBZ8UXS3LXAtXGAnTE5DAmYkVUYdGdc8UlBwTGKoPYDmex9PKVImCCZxFMZ9MCJfMX KnPAQkQFatFUKpNFU6JNzoQVFpPRLhEW7UBnQpUMBoCxJiMlMeISWwBRKpnv4PFMOvUDE7HJS0ABOlND FlDNGvHXtdCQBzQPDuFei6MKRqTJOeOU1TXcOzYNGr IMZ6OEwtXCOvWBNxjz0BXTKiVRA7AaVcXmWiPMRaSOGpVBzpXRWdALNkPriwJDCxUCZmCY7LScNgVREt QZReDJJyQYZhAIPizl4BPEYmQZS8ZzDtDJKgIVNyVQCtLUpzLXJiUEXyYhjrDDAnCOAsBL7ZRvRyWNUt UJFgBVKyEQRiALVwua0LFBLhPIV5TKZ7QoTgPRYaYW EhQPxdUTKcBUI6SoP0FUOqJDLaKS4IVyZnTBFeMZA6JDOvQFLvDPVtoy1GkZBqfWfivh3MDNyQPe4PtC chVLPjBAcwTp7szSAeQCWhYKXKMc9NyvCeFNLpEEZAKGgtEGEoNNSoXWJpEMHzUlSqBRRvEag4PDsxMM hjKRM3BycjUSS5PzI7ScC2UzG6HlMlK1EbTYL5Npc1 IREyHSM7RaY1YDPsUnb+YE7uEAm+Mh3Aw6RtgkT0weEgTEw1UpX0QG8NRBXCG4SUIj== ID Date Data Source [id number] 09/13/2020 04:39:00 PM [facility] Name Value Range Interpretation Code Description Data Sanjuana rce(s) Supporting Document(s) Glucose [Mass/volume] in Capillary blood by Glucometer 240 mg/dL 70- [address] [facility] ID Date Data Source [id number] 09/13/2020 03:42:30 PM [facility] Name Value Range Interpretation Code Description Data Sanjuana rce(s) Supporting Document(s) Glucose [Mass/volume] in Capillary blood by Glucometer 330 mg/dL 70- [address] [facility] ID Date Data Source [id number] 09/13/2020 11:33:00 AM EST [facility] Name Value Range Interpretation Code Description Data Sanjuana rce(s) Supporting Document(s) SARS-CoV-2 RNA 2019 nCoV Real-Time RT-PCR: NOT DETECTED [facility] This lab was ordered by [facility] and reported by [facility]. ID Date Data Source [id number] 09/14/2020 12:36:58 PM [facility] Value Range Interpretation Code Description Data Sanjuana rce(s) Supporting Document(s) SARS coronavirus 2 IgG Ab [Presence] in Serum or Plasma by I mmunoassay Negative [facility] Positive results indicate thatantibodies of SARS-CoV-2 weredetected and the individualhas potentially been exposedto COVID-19. The assay is intented for use asan aid in identifying immune response to SARS-CoV-2 virus.Testing is performed using the[employer] SARS-CoV-2 IgG assay for use under theA's Emergency UseAuthorization (EUA) to allow forrapid response during a declaredpublic health emergency. Thisassay has been validated by theDepartment of Pathology [facility].Additional information isavailable on the following FDAwebsites for health careproviders and recipients .https://www.fda.gov/media/812777/downloadhttps://www.fda.gov/media/374125/downl oadFor Use under Emergency Use Authorization only. ID Date Data Source [id number] 09/13/2020 02:12:05 PM [facility] Name Value Range Interpretation Code Description Data Sanjuana rce(s) Supporting Document(s) Specimen source [Identifier] of Unspecified specimen [facility] SARS-CoV-2 RNA 2019 nCoV Real-Time RT-PCR: NOT DETECTED [facility] Assay Performed [facility] Patients first test for condition 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 Patient has symptoms related to condition [facility] When did you start to experience these symptoms [Date and time] [Phen X] [facility] [facility] [place] Patient was hospitalized because of this condition [facility] [place] patient was admitted to ICU for condition [facility] [place] Patient resides in a congregate care setting [facility] [place] status [facility] ID Date Data Source [id number] 09/13/2020 07:45:40 AM [facility] Name Value Range Interpretation Code Description Data Sanjuana rce(s) Supporting Document(s) Glucose [Mass/volume] in Capillary blood by Glucometer 251 mg/dL 70- [address] [facility] [place] ID Date Data Source [id number] 09/13/2020 05:09:30 AM [facility] Name Value Range Interpretation Code Description Data Sanjuana rce(s) Supporting Document(s) Leukocytes [#/volume] in Blood by Automated count 14.2 10*3/uL 4-[address] [facility] [place] Erythrocytes [#/volume] in Blood by Automated count 4.49 10*6/uL 4.6- 6.1 [facility] Hemoglobin [Mass/volume] in Blood 11.6 g/dL 13.5-18 [facility] Hematocrit [Volume Fraction] of Blood by Automated count 35.7 % 4 1-53 [facility] Erythrocyte mean corpuscular volume [Entitic volume] by Auto mated count 79.5 fL 80-96 [facility] Erythrocyte mean corpuscular hemoglobin [Entitic mass] by Automated count 25.9 pg 27-33 [facility] Erythrocyte mean corpuscular hemoglobin concentration [Mass/volume] by Automated count 32.6 g/[facility].0-[facility] distribution width [Ratio] by Automated count 22.5 % 11.5-14.5 [facility] Platelets [#/volume] in Blood by Automated count 292 10*3/uL 150-400 [facility] [place] Differential cell count method - Blood [facility] [place] Neutrophils/100 leukocytes in Blood by Automated count 73 % [facility] [place] Lymphocytes/100 leukocytes in Blood by Automated count 17 % [facility] [place] Monocytes/100 leukocytes in Blood by Automated count 8 % [facility] [place] Eosinophils/100 leukocytes in Blood by Automated count 1 % [facility] [place] Basophils/100 leukocytes in Blood by Automated count 1 % [facility] [place] Neutrophils [#/volume] in Blood by Automated count 10.36 10*3/uL 1.8- 7.[address] [facility] [place] Lymphocytes [#/volume] in Blood by Automated count 2.47 10*3/uL 1.2-[address] [facility] [place] Monocytes [#/volume] in Blood by Automated count 1.10 10*3/uL 0-0.[address] [facility] [place] Eosinophils [#/volume] in Blood by Automated count 0.20 10*3/uL 0-0.5 [facility] [place] Basophils [#/volume] in Blood by Automated count 0.07 10*3/uL 0-0.2 [facility] [place] Nucleated erythrocytes/100 leukocytes [Ratio] in Blood by Automated count 0 /100{WBCs} 0-0 [facility] [place] ID Date Data Source [id number] 09/13/2020 05:19:17 AM [facility] Name Value Range Interpretation Code Description Data Sanjuana rce(s) Supporting Document(s) Albumin [Mass/volume] in Serum or Plasma by Bromocresol green (BCG) dye binding method 3.1 g/dL 3.5-5.2 L [facility] Bilirubin.total [Mass/volume] in Serum or Plasma 0.3 mg/dL <1.2 [facility] [place] Calcium [Mass/volume] in Serum or Plasma 8.7 mg/dL 8.8-10.[address] [facility] [place] Chloride [Moles/volume] in Serum or Plasma 103 mmol/L 98-107 [facility] [place] Creatinine [Mass/volume] in Serum or Plasma 0.59 mg/dL 0.70-1.[address] [facility] [place] Glucose [Mass/volume] in Serum or Plasma 214 mg/dL 70-[address] [facility] [place] Alkaline phosphatase [Enzymatic activity/volume] in Serum or Plasma 61 U/L 40-129 [facility] [place] Potassium [Moles/volume] in Serum or Plasma 3.9 mmol/L 3.4-5.1 [facility] [place] Protein [Mass/volume] in Serum or Plasma 5.7 g/dL 6.4-8.[address] [facility] [place] Sodium [Moles/volume] in Serum or Plasma 138 mmol/L 136-145 [facility] [place] Aspartate aminotransferase [Enzymatic activity/volume] in Serum or Plasma 14 U/L <40 [facility] [place] Urea nitrogen [Mass/volume] in Serum or Plasma 14 mg/dL 8-23 [facility] [place] Osmolality of Serum or Plasma by calculation 293 mosm/kg 275-300 [facility] [place] Creatinine/Urea nitrogen [Mass Ratio] in Serum or Plasma 24 [facility] [place] Bicarbonate [Moles/volume] in Serum 25 mmol/L 22-29 [facility] [place] Alanine aminotransferase [Enzymatic activity/volume] in Seru m or Plasma 15 U/L <41 [facility] [place] Anion gap 3 in Serum or Plasma 10 mmol/L 8-15 [facility] [place] Glomerular filtration rate/1.73 sq M pre dicted among non-blacks [Volume Rate/Area] in Serum or Plasma by Creatinine-based formula (MDRD) >[address] [facility] [place] Glomerular filtration rate/1.73 sq M pre dicted among blacks [Volume Rate/Area] in Serum or Plasma by Creatinine-based formula (MDRD) >60 [facility] [place] ID Date Data Source [id number] 09/13/2020 05:19:17 AM [facility] Value Range Interpretation Code Description Data Sanjuana rce(s) Supporting Document(s) Phosphate [Mass/volume] in Serum or Plasma 3.3 mg/dL 2.5-4.5 [facility] [place] ID Date Data Source [id number] 09/13/2020 05:19:17 AM [facility] Value Range Interpretation Code Description Data Sanjuana rce(s) Supporting Document(s) Magnesium [Mass/volume] in Serum or Plasma 1.6 mg/dL 1.6-2.4 [facility] [place] ID Date Data Source [id number] 09/12/2020 09:36:36 PM [facility] Value Range Interpretation Code Description Data Sanjuana rce(s) Supporting Document(s) Glucose [Mass/volume] in Capillary blood by Glucometer 179 mg/dL 70- [address] [facility] [place] ID Date Data Source [id number] 09/12/2020 04:38:57 PM [facility] Value Range Interpretation Code Description Data Sanjuana rce(s) Supporting Document(s) Glucose [Mass/volume] in Capillary blood by Glucometer 161 mg/dL 70- [address] [facility] [place] ID Date Data Source [id number] 09/12/2020 12:36:49 PM [facility] Name Value Range Interpretation Code Description Data Sanjuana rce(s) Supporting Document(s) [facility] OLFZJm2cMfZSJkXj85/SAHivWTEhd9RcBVxqTSt1QUgsFDPaQ2TcEJQ0mT3hFMG6BGaTSzFpGxKaSrG2 lbm [file] rA2XNGcGwHBxL4lqlY2ltX04hy+4P/zqcF/TLdooGij2pYt8aI/ZeRlU9h6zGxG9z3I+moisés/BvO/x33IX [file] ICAgICAgICAgICAgICAgICAgICAgICAgICAgICAgIC AgICAgICAgICAgICAgICAgICAgICAgICAgICAgICAgICAgICAgICAgICAgICAgICAgICAgICAgICAgIC AgICANCiAgICAgICAgICAgICAgICAgICAgICAgICAgICAgICAgICAgICAgICAgICAgICAgICAgICAgIC AgICAgICAgICAgICAgICAgICAgICAgICAgICAgICAg ICAgICAgICAgICAgICANCiAgICAgICAgICAgICAgICAgICAgICAgICAgICAgICAgICAgICAgICAgICAg ICAgICAgICAgICAgICAgICAgICAgICAgICAgICAgICAgICAgICAgICAgICAgICAgICAgICAgICANCiAg ICAgICAgICAgICAgICAgICAgICAgICAgICAgICAgIC AgICAgICAgICAgICAgICAgICAgICAgICAgICAgICAgICAgICAgICAgICAgICAgICAgICAgICAgICAgIC AgICAgICANCiAgICAgICAgICAgICAgICAgICAgICAgICAgICAgICAgICAgICAgICAgICAgICAgICAgIC AgICAgICAgICAgICAgICAgICAgICAgICAgICAgICAg ICAgICAgICAgICAgICAgICANCiAgICAgICAgICAgICAgICAgICAgICAgICAgICAgICAgICAgICAgICAg ICAgICAgICAgICAgICAgICAgICAgICAgICAgICAgICAgICAgICAgICAgICAgICAgICAgICAgICAgICAN CiAgICAgICAgICAgICAgICAgICAgICAgICAgICAgIC AgICAgICAgICAgICAgICAgICAgICAgICAgICAgICAgICAgICAgICAgICAgICAgICAgICAgICAgICAgIC AgICAgICAgICANCiAgICAgICAgICAgICAgICAgICAgICAgICAgICAgICAgICAgICAgICAgICAgICAgIC AgICAgICAgICAgICAgICAgICAgICAgICAgICAgICAg ICAgICAgICAgICAgICAgICAgICANCiAgICAgICAgICAgICAgICAgICAgICAgICAgICAgICAgICAgICAg ICAgICAgICAgICAgICAgICAgICAgICAgICAgICAgICAgICAgICAgICAgICAgICAgICAgICAgICAgICAg ICANCiAgICAgICAgICAgICAgICAgICAgICAgICAgIC AgICAgICAgICAgICAgICAgICAgICAgICAgICAgICAgICAgICAgICAgICAgICAgICAgICAgICAgICAgIC AgICAgICAgICAgICANCjw/pEAjR8yprTXnyxO9S2cfLb3ALv8LUQ5md5TuYLRoMHuqkzYoFaxIOvZvBD LhYymZOec1FImrQV9EgANeU4BfB4OtNSxgWE4BTQFu LRTkyMBgRBGfXOXfNjR7MWDjRWdoLO6OeFHqNFlqMWHnJOTqSxHdEUYqVGCqOOCeYGRbEHZBYWCdOHOn IgYoNZBdTUIgFErmHQSDHGJ0BRMcQnMkPKNrXPIrGrCoXMWLNG7KPtSuY0TlrA19ZSQzYLd+Cy3DJO9q n0GdEQt0TdNzFN3ijo9HPAcGPuBbF5KltxW6XQY9YA UwQr3TFHPrDWHkfUT1LKPvWDMJRnMrX8AnnM10OXADKe8+YOhwmfHgHyuLWnV9UCRxe3TeJHk3DC0VSF DaCMw6mNFeH83xu4JbqLUnKgrgA4SwwJWWHG4qXIMMSSJnbHHwTzL7PuChAiWtXXU9ECVdDD1dPTflQR 9CHOW3MQwtJQHoLWAjW9vAOkQkYURkCiLaoNkyPW5W XnNtQ8WkwnMkbNJ6EaGkZCKYLy4+AYpsszWqIlqFVeP7NMCme0KhYEr1XY3BMBCyXFigNP8RIUApxV0v CAqiBO0VEvQ2IDYhESFGEhXbD61kyPNxTMb5I3GoFwZmHEMlJbldLWDpUVnbGcUrOBLpGqNuJAfqLQ5+ ID4+PKmkQR5MTAoxbgXnTOGbWf7QCJDiEFAqLT3pBB CiWFEvV5D6tFtfYZGWVxBbH6rvioyaRJ9uBAXpL762qGsvfjGnHOAoJWSxQb4GFFNbWHP9LSCezUZhZS GtHUAYEAqaDL9ZxBStHRW4bQ3eZZqdMINsDPCtY2zLEgUdfOtxEI69wZreqtDvdIRvEVy+Cp8HUH7be6 QhMLe5fxIjOOoqQNX4IGcqTABlDLWnBVIrJYU3PQM8 CQQPWuYuPBXiPBZyJGgdFTWnUEIobm3GSBShAGS9GRuxJVPqOXYqCJAcBApsVVFnBDDfARX6QWKlKPTc LY8UXuHgJPCoCCMqTDqcRYZiVQFqcr1NZFEkBMEtHim8SxZuUKTzIFUnLSayOYVoQKKqAHI3TOEfQBZl UC7NXpUoTKWyEEY1HyMaFWTuVYLipr5JLKBuHVWyNj OtNITzZJHxYRLcTBhtUDEuINLqPhgwPWGgKGLmYP8VSnRmTURfAQL0DNKzEAVsJWRpkz3LIXWjHCMmRG B3SBZeELSxHNPgNNxhHICvCHQ5SWH2XJHqERLoWR3DPbZqEBBiJJspUwxmCTEuFHYfni6DPPAcYMXxAH G8YRAkYUHtTRRtUShnJCVnGFMrUBW4NXEwAZMxML4J DrDbUEWmRvMsLOKkYTKxMSElld5GJABgILQiYeM7PxOnLIArCLCbDZyeOZCaDTTuRpe5LHEtLCOjEK1R OjDyHRDyEiT2VFVwVWElNXXksb8AZDMbJIRtUtW0YhJjWSHmRJYuGDnsBFYkNNL0TeG4KZXvMVHeCK8J GsVtVUGkQol2MUQrEECsYQUvpc9FLEPhEQJfFEi8TZ TzEJBmVZQsFFgzUUOrGKJwHKT0GXGdTLYcZP3MPbGgKKYdMzYsWIwzCRFtLQAkif6DEEXgYXQpAqEbAI OkHCTlOQVnVSdyDSDtJPZrDPo3CSBcVSHkXL9PHsLjLMAvOxS7HGRhOZZvWQVtie3OFYXwCTNbCqW7TB KkQZXwFBDfMLscJGWmNOJwCJS2LSOrILOiLI6BIgMu DYGkZbK5NSFeENJrVPFbff7BTKYnKLPzXOYhDyTfRUEyMLNrOEkyOUKhCCC7EMe7ZIWrEKQwQV1DTvGy VCIuLDD0UvMeVWIwATQqmf2RZQTuQEG6Gru9FBJwAYTxHFRdXLaiBMQaCYQ1LEl8IMQtOVFnPP9JMtYe WMTvPDirKlelJMXzPBNtcq3AVNKgOJG3CkC1DoSiMN IhQRZnAKijAZLtABE0ZGF2HXJfRNFcIK0DQvJcLZRhXMc5KYNsKUYtLRNjqg1LQSZbZXH5RLx2LfHjPW WmTMViJUpqZMDuTYS5ToU1KOAjPBJjFD6PIrFwHMAbVVK4PbAiQTZpIVRgld0YCHIkKSH1COx6ShRkOC WrSYBnMJywHUNoPJZuDBU7QGReNBCkMA5IFrTdCIte AGDFZeo7JDihA8t9VXT0Wv3CN7Dha5RcOBJoULYEZXosFU8adcIuJMNgKi0GD3iKWhfcIRQ4FLW1QAE1 AEA8LCAiCDJoVCQdRwDvJkmoToThON6wRSVtIwGjBdSyDePrMmU4JuG3K3P1NEJuHICvIECzICVtLtDi PP7RVh4IYeB2VAI3oJQzUj0GZCYhZzrQVyEqUO2XRCy= ID Date Data Source [id number] 09/12/2020 11:46:23 AM [facility] Name Value Range Interpretation Code Description Data Sanjuana rce(s) Supporting Document(s) Glucose [Mass/volume] in Capillary blood by Glucometer 195 mg/dL 70- [address] [facility] [place] ID Date Data Source [id number] 09/13/2020 12:41:40 PM [facility] Service Cmnt XXX-Imp : NoneMicroorganism XXX Cult : 50,000 col/mlCandida albicans Name Value Range Interpretation Code Description Data Sanjuana rce(s) Supporting Document(s) ID Date Data Source [id number] 09/12/2020 10:58:41 AM [facility] Name Value Range Interpretation Code Description Data Sanjuana rce(s) Supporting Document(s) Bicarbonate [Moles/volume] in Serum 23 mmol/L 22-29 [facility] [place] Chloride [Moles/volume] in Serum or Plasma 103 mmol/L 98-107 [facility] [place] Creatinine [Mass/volume] in Serum or Plasma 0.78 mg/dL 0.70-1.20 [facility] [place] Glucose [Mass/volume] in Serum or Plasma 228 mg/dL 70-[address] [facility] [place] Potassium [Moles/volume] in Serum or Plasma 3.5 mmol/L 3.4-5.1 [facility] [place] Sodium [Moles/volume] in Serum or Plasma 137 mmol/L 136-145 [facility] [place] Urea nitrogen [Mass/volume] in Serum or Plasma 18 mg/dL 8-23 [facility] [place] Anion gap 3 in Serum or Plasma 11 mmol/L 8-15 [facility] [place] Osmolality of Serum or Plasma by calculation 293 mosm/kg 275-300 [facility] [place] Creatinine/Urea nitrogen [Mass Ratio] in Serum or Plasma 23 [facility] [place] Calcium [Mass/volume] in Serum or Plasma 8.5 mg/dL 8.8-10.2 [facility] Glomerular filtration rate/1.73 sq M pre dicted among non-blacks [Volume Rate/Area] in Serum or Plasma by Creatinine-based formula (MDRD) >[address] [facility] [place] Glomerular filtration rate/1.73 sq M pre dicted among blacks [Volume Rate/Area] in Serum or Plasma by Creatinine-based formula (MDRD) >60 [facility] [place] ID Date Data Source [id number] 09/12/2020 12:00:00 PM [facility] Name Value Range Interpretation Code Description Data Sanjuana rce(s) Supporting Document(s) Leukocytes [#/volume] in Blood by Automated count 17.2 10*3/uL 4-[address] [facility] [place] Erythrocytes [#/volume] in Blood by Automated count 4.60 10*6/uL 4.6- 6.1 [facility] [place] Hemoglobin [Mass/volume] in Blood 11.6 g/dL 13.5-[address] [facility] [place] Hematocrit [Volume Fraction] of Blood by Automated count 36.6 % 4 1-[address] [facility] [place] Erythrocyte mean corpuscular volume [Entitic volume] by Auto mated count 79.5 fL 80-[address] [facility] [place] Erythrocyte mean corpuscular hemoglobin [Entitic mass] by Automated count 25.2 pg 27-[address] [facility] [place] Erythrocyte mean corpuscular hemoglobin concentration [Mass/volume] by Automated count 31.6 g/dL 32.0-[facility].0 [facility]th[facility] distribution width [Ratio] by Automated count 22.3 % 11.5-14.[address] [facility] [place] Platelets [#/volume] in Blood by Automated count 325 10*3/uL 150-400 [facility] [place] Differential cell count method - Blood [facility] [place] Neutrophils/100 leukocytes in Blood by Automated count 76 % [facility] [place] Lymphocytes/100 leukocytes in Blood by Automated count 15 % [facility] [place] Monocytes/100 leukocytes in Blood by Automated count 4 % [facility] [place] Eosinophils/100 leukocytes in Blood by Automated count 1 % [facility] [place] Basophils/100 leukocytes in Blood by Automated count 1 % [facility] [place] Neutrophils [#/volume] in Blood by Automated count 13.18 10*3/uL 1.8- 7.[address] [facility] [place] Lymphocytes [#/volume] in Blood by Automated count 2.58 10*3/uL 1.2-[address] [facility] [place] Monocytes [#/volume] in Blood by Automated count 0.64 10*3/uL 0-0.8 [facility] [place] Eosinophils [#/volume] in Blood by Automated count 0.15 10*3/uL 0-0.5 [facility] [place] Basophils [#/volume] in Blood by Automated count 0.15 10*3/uL 0-0.2 [facility] [place] Band form neutrophils/100 leukocytes in Blood by Manual count 1 % [facility] [place] Myelocytes/100 leukocytes in Blood by Manual count 1 % [facility] [place] Metamyelocytes/100 leukocytes in Blood by Manual count 1 % [facility] [place] Band form neutrophils [#/volume] in Blood by Manual count 0.15 10*3 /uL 0-0.6 [facility] [place] Myelocytes [#/volume] in Blood by Manual count 0.15 10*3/uL 0-[address] [facility] [place] Metamyelocytes [#/volume] in Blood by Manual count 0.15 10*3/uL 0-[address] [facility] [place] Anisocytosis [Presence] in Blood by Light microscopy [facility] [place] Microcytes [Presence] in Blood by Light microscopy [facility] [place] ID Date Data Source [id number] 09/12/2020 10:46:23 AM EST [facility] Name Value Range Interpretation Code Description Data Sanjuana rce(s) Supporting Document(s) Color of Urine [facility] Clarity of Urine [facility] Specific gravity of Urine by Refractometry automated 1.029 1.003 -1.030 [facility] [place] pH of Urine by Automated test strip 5.0 5.0-8.0 [facility] [place] Protein [Mass/volume] in Urine by Automated test strip 100 mg/dL Neg ative A [facility] [place] Glucose [Mass/volume] in Urine by Automated test strip Neg ative [facility] Ketones [Mass/volume] in Urine by Automated test strip Neg [facility] Bilirubin.total [Presence] in Urine by Automated test strip Negative [facility] [place] Hemoglobin [Presence] in Urine by Automated test strip Neg [facility] Leukocyte esterase [Presence] in Urine by Automated test strip Negative [facility] Nitrite [Presence] in Urine by Automated test strip Negati [facility] Leukocytes [#/area] in Urine sediment by Automated count 413 /HPF 0 -[address] [facility] [place] Erythrocytes [#/area] in Urine sediment by Automated count 37 /HPF 0-[address] [facility] [place] Leukocyte clumps [#/area] in Urine sediment by Automated count None [facility] Yeast.budding [#/area] in Urine sediment by Microscopy high kojo r field None [facility] Mucus [#/area] in Urine sediment by Microscopy low power field None [facility] Crystals.amorphous [#/area] in Urine sediment by Microscopy high power field None [facility] ID Date Data Source [id number] 09/12/2020 08:07:37 AM [facility] Name Value Range Interpretation Code Description Data [facility] rce(s) Supporting Document(s) Glucose [Mass/volume] in Capillary blood by Glucometer 329 mg/dL 70- [address] [facility] [place] ID Date Data Source [id number] 09/13/2020 08:35:56 AM [facility] Service Cmnt XXX-Imp : NoneMicroorganism XXX Cult : Methicillin resistant Staphylococcus aureus.Isolation precautions required-refer to Infection Control Manual. Name Value Range Interpretation Code Description Data [facility] rce(s) Supporting Document(s) ID Date Data Source [id number] 09/12/2020 04:28:25 AM [facility] XR ABDOMEN AP ABD SUPINE ONLY [id number] RESULTInterpreted by:Eduardo Trejo, MDPROCEDURE INFORMATION: Exam: XR Abdomen Exam date and time: 09/12/2020 3:46 AM Age: 65 years old Clinical indication: Cellulitis of left lower limb; Other: Rigid abdomen, rule out obstruction/perf TECHNIQUE: Imaging protocol: XR of the abdomen. Views: Frontal supine view of the abdomen. 1 View. 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 entry coordinator/xPevrf0YPometLssDAaIA3RGsUgME7hmn6AHyFi [file] ICAgICAgICAgICAgICAgICAgICAgICAgICAgICAgICAgICAgICAgICAgICAgICAgICAgICAgICAgICAg ICAgICAgICAgICAgDQogICAgICAgICAgICAgICAgIC AgICAgICAgICAgICAgICAgICAgICAgICAgICAgICAgICAgICAgICAgICAgICAgICAgICAgICAgICAgIC AgICAgICAgICAgICAgICAgICAgICAgDQogICAgICAgICAgICAgICAgICAgICAgICAgICAgICAgICAgIC AgICAgICAgICAgICAgICAgICAgICAgICAgICAgICAg ICAgICAgICAgICAgICAgICAgICAgICAgICAgICAgICAgDQogICAgICAgICAgICAgICAgICAgICAgICAg ICAgICAgICAgICAgICAgICAgICAgICAgICAgICAgICAgICAgICAgICAgICAgICAgICAgICAgICAgICAg ICAgICAgICAgICAgICAgDQogICAgICAgICAgICAgIC AgICAgICAgICAgICAgICAgICAgICAgICAgICAgICAgICAgICAgICAgICAgICAgICAgICAgICAgICAgIC AgICAgICAgICAgICAgICAgICAgICAgICAgDQogICAgICAgICAgICAgICAgICAgICAgICAgICAgICAgIC AgICAgICAgICAgICAgICAgICAgICAgICAgICAgICAg ICAgICAgICAgICAgICAgICAgICAgICAgICAgICAgICAgICAgDQogICAgICAgICAgICAgICAgICAgICAg ICAgICAgICAgICAgICAgICAgICAgICAgICAgICAgICAgICAgICAgICAgICAgICAgICAgICAgICAgICAg ICAgICAgICAgICAgICAgICAgDQogICAgICAgICAgIC AgICAgICAgICAgICAgICAgICAgICAgICAgICAgICAgICAgICAgICAgICAgICAgICAgICAgICAgICAgIC AgICAgICAgICAgICAgICAgICAgICAgICAgICAgDQogICAgICAgICAgICAgICAgICAgICAgICAgICAgIC AgICAgICAgICAgICAgICAgICAgICAgICAgICAgICAg ICAgICAgICAgICAgICAgICAgICAgICAgICAgICAgICAgICAgICAgDQogICAgICAgICAgICAgICAgICAg ICAgICAgICAgICAgICAgICAgICAgICAgICAgICAgICAgICAgICAgICAgICAgICAgICAgICAgICAgICAg TTOgMLLqSQNjVJNuBLEtFVCoEYXjTPs7L2ryGVGjTV ViGE3yCZx6Wu0+DYiNQoHtTNF7vjZxvM2STY5cb7UtCNdzRXGme6UsODr0KM9JPEDdYBglBH9ASUbyuw 4PHQFwUKJjmOCEl4bzXrBlNOY8FWTyIlmxUB9EEKRcE7tdwgLoJNNtHOVLURxvTVHSHIitWSBPHADgKJ UiNlZjOrPuZSDvQKXdZCOEVVP7HIRtNtWhDGNhIHOd MjRgVHXXNUZaQANfIiTiMUDoWONyQlgqAVBTJLE4BHJvLxBfZOMbYIJwSbLaDYOLSFL7CQLeXvRyKtHf RADfMS1EWUVqZ594lvZkCThGIn2+VYimrcLqFcaQTmY9OIOjv5ApAJg8FT4IXHGkNmbhw2ChOQpjQNCC MEmeNU7KQNQ3VGDdCLIyWc3HLPQuI905ytMwLh9YTb 9MHlTpMJ7hnw8GIXrbQVHtVecTWfk5VIneDO9ApEKwXCdRSKLBip40sSOxemSEq7RgiwIsjWEJHBqthn kuOKqqWkKkfTrtXdAaLAPjBr4bLk7pPLKrSPOrGoI6OZTUYM6NBPTfBTYniJAoAJQsOCQSCO2RECeoBO T5DqZzxgLarPIbTNkyBJ4NWNPwptDuRUrgAHLQOXbt XC4RGMy1UHL4MNAtPv0ZSk9NCjHoQR2syy1JTSmpSYZtRovIZnt0WQlbVI9HjJYaWUwPNVHSdf04vOUi ppZKf3YovxXwvOQOLGyjukxsQVrwXzYucSlrEjLcQCPcCc9nLa2aFHZePTJxGhZ1IOJAMZ3PRRWcXALi eJGrXFPoCJYbCxKuOKliXZTmAkZ6IC01eYhnAB2FCA QaHMJdVE72KIK9LUNxQi4DKGYxGCTueuN0YAYiCXUOBgOwG75jaORfMoDtBACYVUh+Kr3CKB3wx6UlXD v7AQLhPY6hyw6YHUkDDfYgE0PnzPerKTWMQZNolPWoHUQPm5LjibCtwHRVrQw9WWWgwWauEBGWNP6uJC VtWKJSAGB3SDVrXdZhIqSpQBLdOPygQIYPEQoOTcQo N4Xla7OdWjXnZyLyNUMcB1iNOhTwMMP2UVXdzLshNV6ENyYqQ2ImhbDpjBE5ErUnIJKBBkYuH4JnEDCh NTkgMCBSDQo+Kn0DAW6td7WqAYq3RUSsJP5bgy9FAWiNWnBmX2A7kZQdR4K4EGwqBc0FPGWoVUOlCXRq ULNIVVpsGA3FZR7cyvV7UQ7ZbZMxUKOxZXMvmJGjUO z9H10xaYCrCOzeMV8LTBJ+Rosanne+Jx0BNPQaOZLsNNYwJqThBZBBQuGrV1XsY2BIk3XdT9AuSZ21cPjubl AiSSbiKI8HAG1uVGCfDUJDZN4ZyWYwdG6rrgR1WkBnVMCJRqRuK23cgOCbIKMtQSO9BCTgCz0RCXEhQ8 NextThqHtrhmZxOBUmHCFRGR3TVMwnlwMbsDZrsFti NJ03aWdzAX4TJn5OSoKmGU1bsa3CyHDqHp9CCPW2Hn5SXPKrUGPgOMYeGFY8INImRxWpQFvjSUBhJZBq SVF2HIAhVGSrXY9YOwVlJMKbIiCqSTEqJVEtDMXmsf3APRDwWFN0Bty3GCEbXEReDGZdJJmvVPJmYFZx JVI6LBKtLQFtTU2PYqVdGNCaCBQ0KqFcDEZpJHSyxw 6VOMWvVCPyEgL0GLTqKMDyAYCxXWilYKZjJHF0DRCkQJLkNNXoJE0DYxRhVDReYTQ3WDUoLMAdYMQqnd 1ESCHkZMUrJIOcEuTwDEXkPJRvJWwnFSXkDIByTnW1SYUgACNdHL9UXuDwSKLhBKA0YxVaYDUrTEIeyg 3MGUQoTMUrOfXdJJKvESIkMBQuHRquVPBsKJW1QZa4 BMXjTBOnJR1XYlUxCMPkHBLfYGJlVOBgHZGuyr2WXKLiMVZeDTR2ZyUiASZdPMSsYMtrSVBzYQA6Igbj GINfFLGdII0WTcSfPTTpZkN1MqHiHEBhYAMigt6OYTMlBBUgNFohMqTlYHLwXGInLFklHNGxJOBlPIYk FNFfGNTzIL4MAqIdNKDgGyOlXAxwDHQsCAZavh1YWQ KyBNPgCcJ1ZVVfSSIfNBSmCJzxAVSqLIQ9BPB5WCFeEXFdYT3EKvNoWYKnOjv5DsNsAIXnYKXvuw9OQJ IsTJTtIWOnQBOgXSZkOZXfVZvrWTNlZRYxZZypQUIeJEBhOP4WTwJiWUMdKdVaRKddMLNmUVWfph8TOY WoHLZpJqEeGBXaZNVvWJMhCWvxHJUlMBD4DOC5DLOx JZGeXU4ZWmQkISLhVbj5FbGvRQPhPWJkyt3XGLEpKWPyYKRfJLLmYIMiJWGdLDkvZQFeXYQjOdTwERJj LTDmAP9LBuNyAJYeCBZ3SHKfUFUgQKWmwy3XSUKrIPB9QvXgIXLhAKWlYSZsYFsvABAgYPShCdGhIDZz OQBzPG0OXeCeDBSlHNM3TNLrRJKnEEZffv6FADNdNA I7DPR0MISnLNVdOHHbJQieUDSoQRA3Tde0QUWxFLDhYF2TPoWkGEOwZAa3GNAtIQBoROYllk6QEMUxXJ [id number]LeV5MIUzPWRqHU4MNoSlNUXcABo5MlEbGEMfZHSsmt4EYHCtMQ R3IAj5LXKnLIOaJTMyYRhaOFJpSXT0EAqsYUEpZOXz XD6JTfQlVWPwVZYxWeseASMwEWKnuo0GSINxWTS7MZF8NOCpABHbEQFiWKyeQNGbOMQoSVkmUPAlZHHn MC1EDeVtWFAgIsPkTFKbITQlEVRpme8XTUVqXGD0CzYtODPcYPQbYWTqCJywGIBmQZPnMLZ5WHZwZNMb PB8NOeYuOAHbJgH3QICoEXXaNDCrfk5UFZAbXPP3Pq Q4LZNtWEZpZJUzSZlxVGRrSYIhRuq8XDHmNXGkYV8LSlObJXHlFgJ9DiRpTHPeRFEojz6QJIFwZDN3BV viKLDwMSTyVEQuXIhnIEFaRUX0OMxaVVCrBJThIY3SEtXtSQSyUxE5IAWwFCKpONZypi7GTPVsBUX8Tu Q9RUZtBJFqIYZrNNgbLUMyRYE7IVL9JKByTUJaKL6Z SsZaELEyFnezRLKjQKPeIMCuvc7DCYZsIRP8XqE8ZATrWCVpXQDfDQodQTSsIMY4MkL5JGGyYQLvMR8U KrJxPTdoELGDOwy9YYkiK3o9QMH0Pi2SB2Yay7GeLzGnMHVIJYjzPS3egkQzIOJpCl1JT6gGFwotERQ2 PGL9C0F9HXZ0VXScFCUuEcgkOLWzDESmKuKvFI3fNI RzORv2OGydLTD9WGW8DsRlUDP1GIV1IHM4QxPxZaXaQqBnOG6SZh9YKqX0TBT1qQLuAj8GNtz7GGAUXc AaJN2FNJr= ID Date Data Source [id number] 09/12/2020 02:26:21 AM [facility] XR TIBIA [id number] RESULTInterpreted by :Eduardo Trejo, MDPROCEDURE INFORMATION: Exam: XR Left Tibia and [...] rce(s) Supporting Document(s) ID Date Data Source [id number] 09/12/2020 02:26:21 AM [facility] XR ANKLE 3 OR MORE VIEWS [id number] RESU LTInterpreted by:CHEL GoodenROCEDURE INFORMATION: Exam: XR [...] rce(s) Supporting Document(s) ID Date Data Source [id number] 09/12/2020 02:26:21 AM [facility] XR CHEST FRONTAL ONLY [id number] RESULTI nterpreted by:CHEL GoodenROCEDURE INFORMATION: Exam: XR Chest Exam date and time: 09/12/2020 12:08 AM Age: 65 years old Clinical indication: Chest pain; Additional info: Picc clearance TECHNIQUE: Imaging protocol: XR of the chest Views: 1 view. COMPARISON: CR XR CHEST FRONTAL ONLY [id number] PORTABLE 01/14/2020 10:09 AM FINDINGS: Tubes, catheters [...] rce(s) Supporting Document(s) ID Date Data Source [id number] 09/12/2020 02:26:21 AM [facility] XR FOOT 3 OR MORE VIEWS [id number] RESUL TInterpreted by:Eduardo Trejo MDPROCEDURE INFORMATION: Exam: [...] rce(s) Supporting Document(s) ID Date Data Source [id number] 09/11/2020 11:35:51 PM [facility] Name Value Range Interpretation Code Description Data Sanjuana rce(s) Supporting Document(s) Sodium [Moles/volume] in Blood 135 mmol/L 136-[address] [facility] Potassium [Moles/volume] in Blood 3.6 mmol/L 3.4-5.1 [facility] Chloride [Moles/volume] in Blood 100 mmol/L 98-107 [facility] Carbon dioxide, total [Moles/volume] in Blood 26 mmol/L 22-29 [facility] Calcium.ionized [Moles/volume] in Blood 1.20 mmol/L 1.13-1.32 [facility] Glucose [Mass/volume] in Blood 392 mg/dL 70-[address] [facility] Urea nitrogen [Mass/volume] in Blood 24 mg/dL 8-[address] [facility] Creatinine [Mass/volume] in Blood 0.6 mg/dL 0.70-1.[address] [facility] Hematocrit [Volume Fraction] of Blood 38 % 41-[address] [facility] Hemoglobin [Mass/volume] in Blood by calculation 12.9 g/dL 13.5-18.[address] [facility] ID Date Data Source [id number] 09/11/2020 11:35:51 PM [facility] Name Value Range Interpretation Code Description Data Sanjuana rce(s) Supporting Document(s) pH of Venous blood 7.39 7.36-7.41 [facility] Carbon dioxide [Partial pressure] in Venous blood 43 mmHg 40-45 [facility] Oxygen [Partial pressure] in Venous blood [address] [facility] Base excess standard in Venous blood by calculation 1 mmol/L [facility] Oxygen saturation Calculated from oxygen partial pressure in Venous blood 60 % 60-85 [facility] Lactate [Moles/volume] in Venous blood 1.1 mmol/L 0.5-2.2 [facility] Bicarbonate [Moles/volume] in Venous blood 27 mmol/L [facility] ID Date Data Source [id number] 09/16/2020 07:44:09 AM [facility] Service Cmnt XXX-Imp : UNKNOWNMicroorgan ism XXX Cult : No growth 5 days Name Value Range Interpretation Code Description Data Sanjuana rce(s) Supporting Document(s) ID Date Data Source [id number] 09/16/2020 07:44:09 AM [facility] Service Cmnt XXX-Imp : UNKNOWNMicroorgan ism XXX Cult : No growth 5 days Name Value Range Interpretation Code Description Data Sanjuana rce(s) Supporting Document(s) ID Date Data Source [id number] 09/11/2020 11:02:00 PM EST [facility] Name Value Range Interpretation Code Description Data Sanjuana rce(s) Supporting Document(s) SARS-CoV-2 RNA 2019 nCoV Real-Time RT-PCR: POSITIVE [facility] This lab was ordered by [facility] and reported by [facility]. ID Date Data Source [id number] 09/12/2020 04:54:50 AM [facility] Name Value Range Interpretation Code Description Data Sanjuana rce(s) Supporting Document(s) Hemoglobin A1c/Hemoglobin.total in Blood by HPLC 8.4 % 4.0-6.[address] [facility] (NOTE)<5.7% Average risk of diabetes (ADA)5.7-6.4% Increased risk of diabetes(ADA)>/= 6.5% Diagnostic for diabetes(ADA) Glucose mean value [Mass/volume] in Blood Estimated fr om glycated hemoglobin 195 mg/dL <[address] [facility] ID Date Data Source [id number] 09/11/2020 11:49:09 PM [facility] Name Value Range Interpretation Code Description Data Sanjuana rce(s) Supporting Document(s) Prothrombin time (PT) 14.5 s 12.5-14.9 [facility] INR in Platelet poor plasma by Coagulation assay 1.11 [facility] Routine intensity oral anticoagulation I NR is typically 2.0-3.0. Target INR must be clinically individualized. ID Date Data Source [id number] 09/11/2020 11:49:09 PM [facility] Value Range Interpretation Code Description Data Sanjuana rce(s) Supporting Document(s) aPTT in Platelet poor plasma by Coagulation assay 29.0 s 24.0-33. 0 [facility] ID Date Data Source [id number] 09/12/2020 12:05:17 AM [facility] Value Range Interpretation Code Description Data Sanjuana rce(s) Supporting Document(s) Bicarbonate [Moles/volume] in Serum 23 mmol/L 22-29 [facility] Chloride [Moles/volume] in Serum or Plasma 99 mmol/L 98-107 [facility] Creatinine [Mass/volume] in Serum or Plasma 0.70 mg/dL 0.70-1.20 [facility] Glucose [Mass/volume] in Serum or Plasma 405 mg/dL 70-[address] [facility] Potassium [Moles/volume] in Serum or Plasma 3.7 mmol/L 3.4-5.1 [facility] Sodium [Moles/volume] in Serum or Plasma 132 mmol/L 136-[address] [facility] Urea nitrogen [Mass/volume] in Serum or Plasma 21 mg/dL 8-23 [facility] Anion gap 3 in Serum or Plasma 10 mmol/L 8-15 [facility] Osmolality of Serum or Plasma by calculation 294 mosm/kg 275-300 [facility] Creatinine/Urea nitrogen [Mass Ratio] in Serum or Plasma 30 [facility] Calcium [Mass/volume] in Serum or Plasma 8.3 mg/dL 8.8-10.2 [facility] Glomerular filtration rate/1.73 sq M pre dicted among non-blacks [Volume Rate/Area] in Serum or Plasma by Creatinine-based formula (MDRD) >[address] [facility] Glomerular filtration rate/1.73 sq M pre dicted among blacks [Volume Rate/Area] in Serum or Plasma by Creatinine-based formula (MDRD) >60 [facility] ID Date Data Source [id number] 09/12/2020 12:35:08 AM [facility] Name Value Range Interpretation Code Description Data Sanjuana rce(s) Supporting Document(s) Leukocytes [#/volume] in Blood by Automated count 15.7 10*3/uL 4-[address] [facility] Erythrocytes [#/volume] in Blood by Automated count 4.51 10*6/uL 4.6- 6.1 [facility] Hemoglobin [Mass/volume] in Blood 11.5 g/dL 13.5-18 [facility] Hematocrit [Volume Fraction] of Blood by Automated count 36.1 % 4 1-53 [facility] Erythrocyte mean corpuscular volume [Entitic volume] by Auto mated count 80.0 fL 80-96 [facility] Erythrocyte mean corpuscular hemoglobin [Entitic mass] by Automated count 25.4 pg 27-33 [facility] Erythrocyte mean corpuscular hemoglobin concentration [Mass/volume] by Automated count 31.8 g/dL 32.0-[facility].0 [facility] distribution width [Ratio] by Automated count 22.3 % 11.5-14.[address] [facility] Platelets [#/volume] in Blood by Automated count 300 10*3/uL 150-400 [facility] Differential cell count method - Blood [facility] Neutrophils/100 leukocytes in Blood by Automated count 79 % [facility] Lymphocytes/100 leukocytes in Blood by Automated count 14 % [facility] Monocytes/100 leukocytes in Blood by Automated count 3 % [facility] Basophils/100 leukocytes in Blood by Automated count 1 % [facility] Neutrophils [#/volume] in Blood by Automated count 12.50 10*3/uL 1.8- 7.[address] [facility] Lymphocytes [#/volume] in Blood by Automated count 2.18 10*3/uL 1.2-[address] [facility] Monocytes [#/volume] in Blood by Automated count 0.44 10*3/uL 0-0.8 [facility] Basophils [#/volume] in Blood by Automated count 0.14 10*3/uL 0-0.2 [facility] Metamyelocytes/100 leukocytes in Blood by Manual count 3 % [facility] Metamyelocytes [#/volume] in Blood by Manual count 0.44 10*3/uL 0-[address] [facility] Anisocytosis [Presence] in Blood by Light microscopy [facility] Poikilocytosis [Presence] in Blood by Light microscopy [facility] ID Date Data Source [id number] 09/12/2020 01:17:52 AM [facility] Value Range Interpretation Code Description Data Sanjuana rce(s) Supporting Document(s) Erythrocyte sedimentation rate 21 mm/hr <[address] [facility] ID Date Data Source [id number] 09/12/2020 01:27:19 AM [facility] Value Range Interpretation Code Description Data Sanjuana rce(s) Supporting Document(s) C reactive protein [Mass/volume] in Serum or Plasma 12.9 mg/L <8.[address] [facility] ID Date Data Source [id number] 09/12/2020 01:27:19 AM [facility] Value Range Interpretation Code Description Data Sanjuana rce(s) Supporting Document(s) Vancomycin [Mass/volume] in Serum or Plasma 16.4 ug/mL [facility] ID Date Data Source [id number] 09/12/2020 12:50:57 AM [facility] Value Range Interpretation Code Description Data Sanjuana rce(s) Supporting Document(s) Specimen source [Identifier] of Unspecified specimen [facility] SARS-CoV-2 RNA 2019 nCoV Real-Time RT-PCR: NOT DETECTED A 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 Patient has symptoms related to [facility] When did you start to experience these symptoms [Date and time] [Phen X] [facility] Patient was hospitalized because of this condition [facility] patient was admitted to ICU for condition [facility] Patient resides in a congregate care setting [facility] status [facility] ID Date Data Source [id number] 09/12/2020 12:50:24 AM [facility] Service Cmnt XXX-Imp : NoneRespiratory P CR Panel : PCR ResultsMicroorganism XXX Cult : See Labs Tab for 2019 nCoV RT-PCR resultsHAdV DNA QI DOMINICK+non-probe : Not DetectedHCoV [id number] Nph QI DOMINICK+non-probe : Not DetectedHCoV [id number] Nph QI DOMINICK+non-probe : Not [id number] RNA Nph QI DOMINICK+non-probe : Not [id number] RNA Upper resp QI DOMINICK+probe : Not [...] DNA Nph Q DOMINICK+non-probe : Not DetectedB [id number] DNA Nph DOMINICK+non-probe : Not Detected Name Value Range Interpretation Code Description Data Sanjuana rce(s) Supporting Document(s) ID Date Data Source [id number] 09/12/2020 12:08:33 AM [facility] Name Value Range Interpretation Code Description Data Sanjuana rce(s) Supporting Document(s) ABO and Rh group [Type] in Blood [facility] Blood group antibody screen [Presence] in Serum or Plasma [facility] Blood bank comment [facility] ID Date Data Source [id number] 09/13/2020 09:51:00 AM [facility] Yeast cells50,000-100,000 colonies/mlThe above 2 analytes were performed by [place] [id number], ,[place] [address] Name Value Range Interpretation Code Description Data Sanjuana rce(s) Supporting Document(s) ID Date Data Source [id number] 09/11/2020 06:03:00 PM EST [facility] Name Value Range Interpretation Code Description Data Sanjuana rce(s) Supporting Document(s) Urine Color Light-Yellow Light-Yellow,Yellow Normal (appl ies to non-numeric results) [facility] Urine Appearance CLEAR CLEAR Normal (applies to non-numeric results) [facility] Urine Specific [place] >1.050 1.015-1.025 Above high normal [facility] Urine pH 6.0 5.0-7.0 Normal (applies to non-numeric resul ts) [facility] Urine Protein 1+ NEG Abnormal (applies to non-numeric results) [facility] Urine Glucose NEG NEG Normal (applies to non-numeric re sults) [facility] Urine Ketone NEG NEG Normal (applies to non-numeric res ults) [facility] Urine Bilirubin NEG NEG Normal (applies to non-numeric results) [facility] Urine Blood 3+ NEG Abnormal (applies to non-numeric re sults) [facility] Urine Urobilinogen NORM <0.2,1.0,<2.0,0.2 Abnormal (a pplies to non-numeric results) [facility] Urine Leukocyte Esterase 2+ NEG Abnormal (applies to n on-numeric results) [facility] Urine Nitrite NEG NEG Normal (applies to non-numeric re sults) [facility] Urine WBC 65 /hpf 0-2 Above high normal [facility] Urine RBC >180 /hpf 0-2 Above high normal [facility] Mucous SLIGHT /lpf NEG,[none] Abnormal (applies to non-numeric re sults) [facility] The above 15 analytes were performed by [place] [id number], ,[place] [address] ID Date Data Source [id number] 09/11/2020 04:46:47 PM EST [facility] Patient: DIANA OLIVERA : 1955 [facility] EXTREMITY RIGHT ANGIO W [...] rce(s) Supporting Document(s) ID Date Data Source [id number] 09/11/2020 01:22:23 PM EST [facility] Name Value Range Interpretation Code Description Data Sanjuana rce(s) Supporting Document(s) ED Procedure Note [facility] [id number] lbm [file] [id number]= ID Date Data Source [id number] 09/11/2020 01:10:49 PM EST [facility] Patient: DIANA OLIVERA : 1955 [facility]: [facility]TR[facility] ARTERIAL LOWER EXTREMITY RIGHT Provider: ADELA [...] rce(s) Supporting Document(s) ID Date Data Source [id number] 09/11/2020 01:25:00 PM EST [facility] Name Value Range Interpretation Code Description Data Sanjuana rce(s) Supporting Document(s) BUN, iSTAT 27 mg/dl 7-18 Above high normal [facility] Glucose, iSTAT 227 mg/dl 67-93 Above high normal [facility] Ionized Calcium, iSTAT 1.19 mMol/L 1.13-1.32 Normal (a pplies to non-numeric results) [facility] Sodium, iSTAT 135 mEq/L 136-145 Below low normal [facility] Potassium, iSTAT 3.8 mEq/L 3.5-5.1 Normal (applies to non-numeric results) [facility] Chloride, iSTAT 101 mEq/L 98-107 Normal (applies to non-numeric results) [facility] Anion Gap, iSTAT 13 [facility] Creatinine, iSTAT 0.80 mg/dl 0.80-1.30 Normal (applies to non- numeric results) [facility] GFR,iSTAT >60 mL/min/1.73m2 [facility] Hematocrit, iSTAT 39.0 % 42.0-52.0 Below low normal [facility] Hemoglobin, iSTAT 13.3 g/dl 14.0-18.0 Below low normal [facility] TCO2, iSTAT 25.0 mMol/L 22.0-30.0 Normal (applies to non-numeric res ults) [facility] The above 12 analytes were performed by [facility] [id number] [place] [address], ,[place] [id number] ID Date Data Source [id number] 09/11/2020 01:02:28 PM EST [facility] Patient: DIANA OLIVERA : 1955 [facility]ACS [facility]ST 1 VIEW Provider: ADELA Chavez [...] rce(s) Supporting Document(s) ID Date Data Source [id number] 09/11/2020 01:39:00 PM EST [facility] Name Value Range Interpretation Code Description Data Sanjuana rce(s) Supporting Document(s) CPK (Total) 22 IU/L 39-308 Below low normal [facility] The above 1 analytes were performed by [facility] [id number], ,[place] [address] ID Date Data Source [id number] 09/11/2020 01:39:00 PM [facility] Name Value Range Interpretation Code Description Data Sanjuana rce(s) Supporting Document(s) NTproBNP 153 pg/ml 0-125 Above high normal [facility] Acute CHF unlikely if NTproBNP:<125 pg/m L for age <75 years<450 pg/mL for age > or = 75 yearsCHF likely if NTproBNP:>450 pg/mL for age <50 years>900 pg/mL for age 50-75 years>1800 pg/mL for age >75 yearsCHF very likely if NTproBNP:>28565 (regardless of age)The PRIDE study recommends the above cut-off values. It also recognizesa change in a patient's "dry" value of >25% as being an acute episode of HF. Therefore, a return to their"dry" level at a 25% decrease is an indication of a successful intervention.The above 1 analyt[address] [facility] [id number], ,[facility] [place] [address] ID Date Data Source [id number] 09/11/2020 01:39:00 PM [facility] Name Value Range Interpretation Code Description Data Sanjuana rce(s) Supporting Document(s) Magnesium 1.8 mg/dl 1.6-2.6 Normal (applies to non-numeric resul ts) [facility] The above 1 analytes were performed by [facility] [id number], ,[place] [address] ID Date Data Source [id number] 09/11/2020 01:39:00 PM EST [facility] Name Value Range Interpretation Code Description Data Sanjuana rce(s) Supporting Document(s) Lipase 168 IU/L 73-393 Normal (applies to non-numeric resul ts) [facility] The above 1 analytes were performed by [facility] [id number], ,[place] [address] ID Date Data Source [id number] 09/11/2020 01:39:00 PM EST [facility] Name Value Range Interpretation Code Description Data Sanjuana rce(s) Supporting Document(s) AST 12 IU/L 15-37 Below low normal [facility] Sulfasalazine and sulfapyridine have the potential to falsely depressAspartate Aminotransferase results. Baseline values before medication administration are recommended. ALT 19 IU/L 16-61 Normal (applies to non-numeric resul ts) [facility] Sulfasalazine and sulfapyridine have the potential to falsely depressAlanine Aminotransferase results. Baseline values before medication administration are recommended. Alkaline Phosphatase 64 mIU/ml 50-136 Normal (applies to non-num awa results) [facility] Total Bilirubin 0.50 mg/dl 0.20-1.00 Normal (applies to non-numeric results) [facility] Blood Urea Nitrogen 29 mg/dl 7-18 Above high normal [facility] Creatinine 0.76 mg/dl 0.67-1.17 Normal (applies to non-numeric resul ts) [facility] N-Acetylcysteine (NAC) and Metamizole villanueva ve the potential to falselydepress Creatinine results. Baseline values before medication adminstration are recommended. Patients undergoing treatment with phenindione will have falselydepressed results. Patients on phenindione therapy should be tested with an alternativeCREA method.Toxic levels of acetaminophen may lead to falsely depressed results forpatient samples. Glomerular Filtration Rate >90.00 mL/min/1.73m2 [facility] GFR Reference Ranges:Normal Function or Mild [...] of Health and the National KidneyFoundation. The [place] method used in calculating this result is traceable to IDMS standards. Glucose 217 mg/dl 70-110 Above high normal [facility] Sulfasalazine has the potential to false ly depress Glucose results. Sulfapyridine has the potential to falsely elevate Glucose results. Baseline values before medication administration are recommended. Calcium 8.6 mg/dl 8.5-10.1 Normal (applies to non-numeric resul ts) [facility] Total Protein 5.9 g/dl 6.4-8.2 Below low normal [facility] Albumin 2.5 g/dl 3.4-5.0 Below low normal [facility] Sodium 136 mEq/L 136-145 Normal (applies to non-numeric resul ts) [facility] Potassium 3.9 mEq/L 3.5-5.1 Normal (applies to non-numeric resul ts) [facility] Chloride 103.0 mEq/L 98.0-107.0 Normal (applies to non-numeric resu lts) [facility] Anion Gap 12.4 [facility] Carbon Dioxide 24.5 mMol/L 21.0-32.0 Normal (applies to non-numeric results) [facility] The above 16 analytes were performed by [facility] [id number], ,[place] [address] ID Date Data Source [id number] 09/11/2020 01:37:00 PM [facility] Name Value Range Interpretation Code Description Data Sanjuana rce(s) Supporting Document(s) Lactic Acid 0.8 mMol/L 0.4-2.0 Normal (applies to non-numeric resu lts) [facility] The above 1 analytes were performed by [facility] [id number], ,[place] [address] ID Date Data Source [id number] 09/11/2020 01:31:00 PM [facility] Name Value Range Interpretation Code Description Data Sanjuana rce(s) Supporting Document(s) PTT, on Anticoag. Therapy 31.3 Seconds 66.4-93.0 Below low normal [facility] Discrepant results may occur due to anti coagulant effects such asheparin, direct thrombin inhibitors; argatroban (Acova), bivalirudin(Angiomax) or dabigatran (Pradaxa) or direct factor Xa inhibitors;rivaroxaban (Xarelto), apixaban (Eliquis) and edoxaban (Savaysa).The above 1 analytes were performed by [facility] [id number], ,[place] [address] ID Date Data Source [id number] 09/11/2020 01:31:00 PM [facility] Name Value Range Interpretation Code Description Data Sanjuana rce(s) Supporting Document(s) PT,Patient (on Anticoag. Therapy) 15.7 Seconds [facility] Attention: Effeciive 12/11/2019 The nor mal range for PT (on Anticoagulant Therapy) has changed:Previous normal range: 10.1-11.3New normal range: NoneDiscrepant results may occur due to anticoagulant effects such ascoumadin, direct thrombin inhibitors; argatroban (Acova), bivalirudin(Angiomax) or dabigatran (Pradaxa) or direct factor Xa inhibitors;rivaroxaban (Xarelto), apixaban (Eliquis) and edoxaban (Savaysa). INR (on Anticoagulant Therapy) 1.3 2.0-3.5 Below low normal [facility] Suggested therapeutic INR ranges for ora l anticoagulant therapy: Indication:INRPrevention and treatment of DVT and PE2.0 - 3.0Prevention of systemic embolism with atrial fib., acute NM and 2.0 -3.0 tissue prosthetic heart valves.Prevention of systemic embolism in patients with mechanical heart2.5 -3.5 valves.NOTE: The INR is only valid for patients on stable oral anticoagulanttherapy. The above 2 analytes were performed by [facility] [id number], ,[place] [address] ID Date Data Source [id number] 09/11/2020 01:18:00 PM EST [facility] Name Value Range Interpretation Code Description Data Sanjuana rce(s) Supporting Document(s) WBC 19.39 x1000/ul 4.80-10.00 Above high normal [facility] RBC 4.88 x1Mil/ul 4.70-6.10 Normal (applies to non-numeric re sults) [facility] Hemoglobin 12.2 g/dl 14.0-18.0 Below low normal [facility] Hematocrit 39.6 % 42.0-52.0 Below low normal [facility] MCV 81.1 fL 80.0-94.0 Normal (applies to non-numeric resul ts) [facility] MCH 25.0 pg 27.0-31.0 Below low normal [facility] MCHC 30.8 g/dl 32.2-37.0 Below low normal [facility] RDW 20.8 % 11.5-14.5 Above high normal [facility] Platelet Count 353 x1000/ul 130-400 Normal (applies to non-numeric results) [facility] MPV 9.7 fL 9.4-12.4 Normal (applies to non-numeric resul ts) [facility] Neutrophils 74.9 % 40.0-74.0 Above high normal [facility] regis [facility] Lymphocytes 14.1 % 19.0-48.0 Below low normal [facility] Monocytes 7.0 % 3.4-9.0 Normal (applies to non-numeric resul ts) [facility] Eosinophils 0.7 % 0.0-7.0 Normal (applies to non-numeric resu lts) [facility] Basophils 0.4 % 0.0-2.0 Normal (applies to non-numeric resul ts) [facility] Immature Granulocytes 2.9 % 0.0-0.5 Above high normal [facility] Nucleated RBCs 0.00 % 0.00-0.20 Normal (applies to non-numeric r esults) [facility] Abs. Neutrophils 14.52 x1000/ul 1.92-8.31 Above high normal [facility] Abs. Lymphocyte 2.74 x1000/ul 1.20-3.70 Normal (applies to non-n umeric results) [facility] Abs. Monocytes 1.36 x1000/ul 0.14-0.97 Above high normal [facility] Abs. Eosinophils 0.14 x1000/ul 0.00-0.76 Normal (applie s to non-numeric results) [facility] Abs. Basophils 0.07 x1000/ul 0.00-0.22 Normal (applies to non-n umeric results) [facility] Abs. Immature Gran. 0.56 x1000/ul 0.00-0.02 Above high normal [facility] Abs. Nucleated RBCs 0.00 x1000/ul 0.00-0.02 Normal (appl ies to non-numeric results) [facility] The above 24 analytes were performed by [facility] [id number], ,[place] [address] ID Date Data Source [id number] 09/11/2020 12:28:16 PM EST [facility] Name Value Range Interpretation Code Description Data Sanjuana rce(s) Supporting Document(s) ED Triage Notes [facility] NRZXNk0fUfZLLsXn87/DQGtzKQUzx9AxXJsaFTs2LNlkELBvR7IkLLB9rI4tFRK2FNyJZcMvIhZxVkC4 lbm [file] ICAgICAgICAgICAgICAgICAgICAgICAgICAgICAgIC AgICAgICAgICAgICAgICAgICAgICAgICANCiAgICAgICAgICAgICAgICAgICAgICAgICAgICAgICAgIC AgICAgICAgICAgICAgICAgICAgICAgICAgICAgICAgICAgICAgICAgICAgICAgICAgICAgICAgICAgIC AgICAgICANCiAgICAgICAgICAgICAgICAgICAgICAg ICAgICAgICAgICAgICAgICAgICAgICAgICAgICAgICAgICAgICAgICAgICAgICAgICAgICAgICAgICAg ICAgICAgICAgICAgICAgICANCiAgICAgICAgICAgICAgICAgICAgICAgICAgICAgICAgICAgICAgICAg ICAgICAgICAgICAgICAgICAgICAgICAgICAgICAgIC AgICAgICAgICAgICAgICAgICAgICAgICAgICANCiAgICAgICAgICAgICAgICAgICAgICAgICAgICAgIC AgICAgICAgICAgICAgICAgICAgICAgICAgICAgICAgICAgICAgICAgICAgICAgICAgICAgICAgICAgIC AgICAgICAgICANCiAgICAgICAgICAgICAgICAgICAg ICAgICAgICAgICAgICAgICAgICAgICAgICAgICAgICAgICAgICAgICAgICAgICAgICAgICAgICAgICAg ICAgICAgICAgICAgICAgICAgICANCiAgICAgICAgICAgICAgICAgICAgICAgICAgICAgICAgICAgICAg ICAgICAgICAgICAgICAgICAgICAgICAgICAgICAgIC AgICAgICAgICAgICAgICAgICAgICAgICAgICAgICANCiAgICAgICAgICAgICAgICAgICAgICAgICAgIC AgICAgICAgICAgICAgICAgICAgICAgICAgICAgICAgICAgICAgICAgICAgICAgICAgICAgICAgICAgIC AgICAgICAgICAgICANCiAgICAgICAgICAgICAgICAg ICAgICAgICAgICAgICAgICAgICAgICAgICAgICAgICAgICAgICAgICAgICAgICAgICAgICAgICAgICAg ICAgICAgICAgICAgICAgICAgICAgICANCiAgICAgICAgICAgICAgICAgICAgICAgICAgICAgICAgICAg ICAgICAgICAgICAgICAgICAgICAgICAgICAgICAgIC AgICAgICAgICAgICAgICAgICAgICAgICAgICAgICAgICANCjw/mVCkV2lxkYSwuvL2V5ndEr0ODc9IPH 2ux5EuIXZbUZqegsGqLalNNvXkPPVgNbdBQgs1ODqkSO0HsCHwR0MfM3ZqPAluFG1GRDZoKJFdeRCyIZ QyCZNoAkK4NVMdSVyhWX6CwOJjAWlaWLUfEGDfIN2D BDZfD367opFqJA6FSt3PQwNiFD1bdh9MGVizKNBbXadNZog9HRgwLL5NjMGdnUHuYZArFGLVVdEeD0sz g7HyLCwdQELQFBptVQ6Oz9VniMAwPUi+Zv4PJX2qk0CzLXnvVFMuTZ6oty0NKMbOVrYrR0LfzHsqOMOW VKXdcQFqEJTCn9LnvrMjjGQCmIAxaXUoqFFwXNGkt8 x3JJMEUsZiiTAaPxI7SwBdZcUuQBN3RMLsHM1mGJihMK4RWBZ3BLwtXPCkHSAqI4dGBaJkGQlkZUVxaV wvCO6RDmXtX6NstlYivMQjCuGwFTZWOb3+PLhugcWqOroYSmB5YQLpl6UwNLp4CX6NFSYyAEphPK6SXS YaoD7lSMnvAP4LPrZcONKnEZPSXbIgB08agJGjGTo4 C8YwExJyRJWxBneqRVOuEYvaRxUqFUVrPvCqZPwoHC4+ID4+OQopPF1HXOhqbdGhRJAbSu5JBRCqZLDh ZD8sORZsJOBeE9T4rQdeEAADZrZjO5rizxftPG7gZEGkT279mZqjsdItXZJ9VSGdYr3LFMMoFFX7KVSt fNHnISQaAZJMWKgzLX2RjKAiOZJ6uM8fNQadHVYwMD HuV9bUNmNewDhgJM58hTrgitRknHIaXQb+Zc4LZS6sz1GhSOy2bqIkFSolWKGeLWdcCYJxXNWoLWMkEF V4RCJ5MQFFWtFlDNGcGREsEJwePFHkAAVxrs1MWDSgLASdBJe4KhGgNWDtMIQkQHrdLIZjGYX2RKEaLV EyMAEmGA0IFrIoROLoIPMjTAqbGCCpYVBlju6QLPHh WTOkWHJaUGUcXAQfKVYoINbqJXKsOONtEbPzTBNmFDXqJW4OCrQjPEQfFHN7SoOgZZExEVEjao1UVEQf SZXtFue9NaGiYQMnJHXlISfsGNVkWSErKWJ5VVPrWNCyZI0GBxPmSZAsWAGvWFCcYRGhERYmac8IXHMg ELLmHIKmXpWbBHFbJCQrVMcvQIEoNFQ0Yks5TMScDN GjWU5WHbOdJTDvIFGqDPQwSNYrAFVwrl8YFSWhTBWdYMH6YCUpGUDaUCLtABwsZBDnOHB0YeQ5EXIgQN WeSW4DWjKzXQYqIFVpIcZuSRVnWKTvzq2OAGNiZHCcItO2DZRtDYIqFTBaDUndBSRiLRA7KlyhHCMgGW AlOC6FYgXlUZXuHPm5JkIvBSCeJWZhkr7CvGTcuCpi ie8WOPwZAe9JtQvaULDzKVbnYb0geXWaTZQuQLSOEd8FaoLqARZmTVTFMGrbIBZqJKldQAQsQWCvRXUc XNTfSZuwQaBoSJWaMwP8G4YdXgT5IuB7QEX4IgYhYDSuOUO8CjEnRBPiFoT7GzClZJWdNbLqCxI+IF0g DQo+Yx2Fw4BxqkD7lwKsNVl9CPX9ACorCQBLGk8G ID Date Data Source [id number] 09/11/2020 12:07:00 PM EST [facility] Name Value Range Interpretation Code Description Data Sanjuana rce(s) Supporting Document(s) Glucose, Fingerstick 226 mg/dl 70-110 Above high normal [facility] The above 1 analytes were performed by [facility] [id number] [place] [address],[facility]#: [id number],[place] [address] ID Date Data Source [id number] 09/09/2020 09:00:00 AM EST [facility] Name Value Range Interpretation Code Description Data Sanjuana rce(s) Supporting Document(s) SARS-CoV-2 (COVID-19) RNA [Presence] in Respiratory specimen by DOMINICK with probe detection Not Detected [facility] This lab was ordered by [facility] and reported by [employer] ID Date Data Source [id number] 09/08/2020 04:05:26 PM EST [facility] Name Value Range Interpretation Code Description Data Sanjuana rce(s) Supporting Document(s) Care Plan [facility] IVQIKy0yQaIOQkHj65/XAIbkTHQtr4PzBHzmBGw2SOagPUCuY7ZuYUK7lI0nMMV8BXpJWcFpOnOvYoLv lbm [file] SJV1ANdlShI6IcEeRE1RDx0YEfL8UPE4bNXsJy4LNhV3TwCJQjTdBB0VPVe= ID Date Data Source [id number] 09/08/2020 03:18:47 PM EST [facility] Name Value Range Interpretation Code Description Data Sanjuana rce(s) Supporting Document(s) Care Plan [facility] SRXGNh2zBqSOSeYy32/NDSqtNFMnz5ByIAlgWNs1MKphZIPhQ4AvOXO4xS8yDOQ4LAeEPkCwSzDiBiHw lbm [file] ICAgICAgICAgICAgICAgICAgICAgICAgICAgICAgICAgICAgICAgICAgICAgICAgICAgICAgICAgICAg ICAgICAgICAgICAgICAgICAgICAgICAgDQogICAgIC AgICAgICAgICAgICAgICAgICAgICAgICAgICAgICAgICAgICAgICAgICAgICAgICAgICAgICAgICAgIC AgICAgICAgICAgICAgICAgICAgICAgICAgICAgICAgICAgDQogICAgICAgICAgICAgICAgICAgICAgIC AgICAgICAgICAgICAgICAgICAgICAgICAgICAgICAg ICAgICAgICAgICAgICAgICAgICAgICAgICAgICAgICAgICAgICAgICAgICAgDQogICAgICAgICAgICAg ICAgICAgICAgICAgICAgICAgICAgICAgICAgICAgICAgICAgICAgICAgICAgICAgICAgICAgICAgICAg ICAgICAgICAgICAgICAgICAgICAgICAgICAgDQogIC AgICAgICAgICAgICAgICAgICAgICAgICAgICAgICAgICAgICAgICAgICAgICAgICAgICAgICAgICAgIC AgICAgICAgICAgICAgICAgICAgICAgICAgICAgICAgICAgICAgDQogICAgICAgICAgICAgICAgICAgIC AgICAgICAgICAgICAgICAgICAgICAgICAgICAgICAg ICAgICAgICAgICAgICAgICAgICAgICAgICAgICAgICAgICAgICAgICAgICAgICAgDQogICAgICAgICAg ICAgICAgICAgICAgICAgICAgICAgICAgICAgICAgICAgICAgICAgICAgICAgICAgICAgICAgICAgICAg ICAgICAgICAgICAgICAgICAgICAgICAgICAgICAgDQ ogICAgICAgICAgICAgICAgICAgICAgICAgICAgICAgICAgICAgICAgICAgICAgICAgICAgICAgICAgIC AgICAgICAgICAgICAgICAgICAgICAgICAgICAgICAgICAgICAgICAgDQogICAgICAgICAgICAgICAgIC AgICAgICAgICAgICAgICAgICAgICAgICAgICAgICAg ICAgICAgICAgICAgICAgICAgICAgICAgICAgICAgICAgICAgICAgICAgICAgICAgICAgDQogICAgICAg ICAgICAgICAgICAgICAgICAgICAgICAgICAgICAgICAgICAgICAgICAgICAgICAgICAgICAgICAgICAg ICAgICAgICAgICAgICAgICAgICAgICAgICAgICAgIC YzJGz9R3duVGSvIISyGU1vCSa1Ir8+CYjYCmHmCGY8drZqvU7UXQ4kl5XqRFggXVJkf7ErYTu4IA4BFD CoLDntXZ0PDTmmij2DPWTfQCAduLVSq5juUkEeEUI2LTKbCqvtXY8GTBNxI3krwmKlEULaDLQXHY4EUb EpB3MkdP67KRWCAo1+EQeacbCsWsfNLiT9QRVbd4Rd YJx6JV2AIDZbKsgyz8TnRuYsAVRQHQeoVK6ECUP1UPG3OQAbQs8CXOVwC222twYdJP1OTq3JUrQgBS3z yl9BYhPtWPKsJqfUCuy0JVlaEG2DtWHeALxHTDJfFVLcLN7eZueeEIUxxa4zBYVPq4vxofEwmuwkIAMm TMRgDc6vUc2bJRFbSEL5WnW4TWLSDH2XAWMsHYTqpA WbIKGnQLVPUO9MPPtfLTD5ZldlgiGcaXQbTPlvGA5GANSbgwDnOmTgPDAPCGo+Sf7NHH9ac4VlSOckNh DwMM9idh7SLRzOFdLzU8C1tXUgZ3V0DYvxEx6ZFZBiNTFoIcRnFQASLLmsZJ1OJL2duhN8IH0OeOPqXC JnTDOewPWyPTp1Q62goZDbAFvjUK7RRNB+Rosanne+Pg0K HVUpLYNkVQSjSfCfQXBECvZjZ9ZrH2WRw7HyZ4ReJK32hAairkIrWToeFA0BJE6gUYYjSYMVMF1FtQSu kM7mgwUbFYLrVXGWGxUlJ42xyWUwFBScQQQ1YMUaTv6KPBOvN5OotsNxiPsaowVvKHWuMZKRHD4YHEdt vqYwgBGfuEaeVX18bBvqHR1BAj3OTgUoGI5opo6TnD EnRv3CPCQlOL7OETFwGORwAUZyLVI3NKPmMxSnMZbxKZQvRKXsOXU1QMLkTTGvDG5SFgWnWIJiNJf7Ej JcSMLyAJWcmw5DYMLdAWSjCSgxRWEqVCXhWNTiLCbvAQDsFPTrKBT8HIEsZFCxDN7JYrTaYSHoHMQbJr CrGHIqESFvyq8KKLPlOCKgSYE9ILGbXPUkQVTyDFgy JKIpFOJdFaM9MVBfCUPkVM0OQmGkFLDyZEZ6LmdmKTEhZWOupx6KDHRoZZNiVoifSMYiCFXjJBDbYPbv HAYdLNQiAgqdMWEdMPBhFJ9AKyLqBKArKAH7QiIqTCXhSFPybw8CSCWoSKCtHLQ0RhYsHHAbUBAwQNaj HYMyFCP6TPDcPOHhGCZpLY5CGvIxPGVkRBN9BLvnDP YbTIPppf3HELPeGSCfHuhcKdNqAEExYKAoCAkpZVYfWSW3UMT4KGIlBSIgMT4ZExAmZUOrQMbtHKFiEN WdJROncx8PEOYcNNEoLOV7XSFmMIJiRDCvHCdgBTZgYJC4WBAxXCQuCAJoRH4TNxTcQHPgBYh0BzuyYN CgJIBgvt9ZUVMtDMRnURY2UIYfEOAsXPGyIZhrSSDv FBG5VlY0KSKmYCAuMN6IVaFnTQNxFSc0ExcmREKxYTJdbo8ADPFcMGHyDIC7EKAeXPCqFMDjYBcbGFLl YCKaGRA9TSYnDONnYM8DCmSwXVSkUxA0IigaQGObXNYagw1YNZBsRGNfGcFdBVPqYJJrVOTaVZo8gzWc eUQjDXs2OT9CR2ZhpoLfThrKOi5Ju591CTX9NHRwJl 4MQ4apGj9lAWDfZGATDg8QUAo4KWOzSLC4OIDnHekwQOTjL2V8DVMkMDCwOVj7EoHhORM+PKt0LqNvYH FmNIV2X8A8SFZjDeTtWTW1ReN8XBriSVCcXn1cOHTDVh2+EVcknHFjlZouOPLKOfUpEaS9ZSprIIFKRj 0K ID Date Data Source [id number] 09/07/2020 06:41:56 PM EST [facility] Name Value Range Interpretation Code Description Data Sanjuana rce(s) Supporting Document(s) Nursing Note [facility] ZLHADd9pZvDJJiGy77/DYLwkQIIpd4CyBScrBKl6CNrlIVPyS9ZrCZA6jG2eYML0NJhYJcIhYsEyIaFy lbm [file] ZjjiFIDiOj2hGDFBSb4+YOgewQPbuVnpZZTZZimmDrYNQdGpBA1AGAa= ID Date Data Source [id number] 09/07/2020 06:41:46 PM EST [facility] Name Value Range Interpretation Code Description Data Sanjuana rce(s) Supporting Document(s) Nursing Note [facility] WLTFXk7cOdPLNgGo07/OERraDVTjf0XvDYsxRZa1HBgnSJOwM5PwZPV6kU0pBFP8KQvMWsLbZnOdWqGs lbm [file] GK3aJTp+No5Rr8InfbG2jzWdYZl1HeAaTBbzJVVXJu4S ID Date Data Source [id number] 09/07/2020 03:35:12 PM EST [facility] Name Value Range Interpretation Code Description Data Sanjuana rce(s) Supporting Document(s) Discharge Summary [facility] CJATGm1qVcQPEnTg62/YGRfvGZKsh8PsQByyDWn0DBbvJSCeD7ZnBJW0dX3rCVI3UCdQUaPlGlMkZeEp lbm [file] o46sVaVhYmsfBBe1k7I/c3PY+b12wkpJqYD+director of exhibits/rk+S4fTdKz8PdqKMk08upAwFUedE+HiPN23q6UuT [file] ICAgICAgICAgICAgICAgICAgICAgICAgICAgICAgICAgICAgICAgICAgICAgICAgICAgICAgICAgICAg ICAgICAgICAgICAgICAgICAgICAgICAgICAgICAgDQ ogICAgICAgICAgICAgICAgICAgICAgICAgICAgICAgICAgICAgICAgICAgICAgICAgICAgICAgICAgIC AgICAgICAgICAgICAgICAgICAgICAgICAgICAgICAgICAgICAgICAgDQogICAgICAgICAgICAgICAgIC AgICAgICAgICAgICAgICAgICAgICAgICAgICAgICAg ICAgICAgICAgICAgICAgICAgICAgICAgICAgICAgICAgICAgICAgICAgICAgICAgICAgDQogICAgICAg ICAgICAgICAgICAgICAgICAgICAgICAgICAgICAgICAgICAgICAgICAgICAgICAgICAgICAgICAgICAg ICAgICAgICAgICAgICAgICAgICAgICAgICAgICAgIC AgDQogICAgICAgICAgICAgICAgICAgICAgICAgICAgICAgICAgICAgICAgICAgICAgICAgICAgICAgIC AgICAgICAgICAgICAgICAgICAgICAgICAgICAgICAgICAgICAgICAgICAgDQogICAgICAgICAgICAgIC AgICAgICAgICAgICAgICAgICAgICAgICAgICAgICAg ICAgICAgICAgICAgICAgICAgICAgICAgICAgICAgICAgICAgICAgICAgICAgICAgICAgICAgDQogICAg ICAgICAgICAgICAgICAgICAgICAgICAgICAgICAgICAgICAgICAgICAgICAgICAgICAgICAgICAgICAg ICAgICAgICAgICAgICAgICAgICAgICAgICAgICAgIC AgICAgDQogICAgICAgICAgICAgICAgICAgICAgICAgICAgICAgICAgICAgICAgICAgICAgICAgICAgIC AgICAgICAgICAgICAgICAgICAgICAgICAgICAgICAgICAgICAgICAgICAgICAgDQogICAgICAgICAgIC AgICAgICAgICAgICAgICAgICAgICAgICAgICAgICAg ICAgICAgICAgICAgICAgICAgICAgICAgICAgICAgICAgICAgICAgICAgICAgICAgICAgICAgICAgDQog ICAgICAgICAgICAgICAgICAgICAgICAgICAgICAgICAgICAgICAgICAgICAgICAgICAgICAgICAgICAg ICAgICAgICAgICAgICAgICAgICAgICAgICAgICAgIC XvHNTuNUWoNRq3O5fbWTVaLXGkCK7kSCn7Iv7+QRpZAlHtVIR9bdNmbU2DNG6te8XmOSqmSSWrt0KfXJ i3MZ3XTMDbJRkgYF1EWZvari3VCQGhAGGeeGRVx3onTuMaJTD4PHRkZxeuYF9BKHSsX8zefaLpMLIxJN BSIDcgMCBSIDkgMCBSIDExIDAgUiAxMyAwIFIgMTUg DQOWVC6QMbJuK6PfsS49HIOJBr5+OFxojtYmLqeKSfCoOCGmf0FvIZs7RC0NYCFdWbapi6DkNNUtQZTP VYtdXN4JBZR8QIJoDMDqPy0DVEOgK754flAtFK9YWw8UAuSgHK7bqs4VBONsDJMgRojPQth8JDzqNA7E bISiMBjKwSAsuQWhK2PzU4ZlsMEazZIhuQVYdIKseb ANzBMuYTFZVCIqpHOpRkHnOaOaRdBvGSK9LrUcXX7qESpzKU5HQGV7XZwvWFChSRGjZ9wEIzDuIJndDZ PxmQwaMM7NKyNrL4ZlgjJqdTA3JPVoIYMWSz4+QHyqlsScFtpGOmCeZTWud4MaRFn2LC3UMRCxRSinFI 9JTCDcpC9tRAomIJ8IOjAuRWYfHPOWFfXpY43igRLh SNr9B6SoTaFaCVNfGiaoYUUnFDezCnFtTHToYdWxNSebFT8+ID4+XHhnOJ4TFFsewlXoZDKjJy0GMBYm CSFgNU1tYWUwSPCzQ4F6vVtyTWYEZuWdC5avvhtjBB7oXBFeX412sHjrcqGhHAAeBFAtYp4WLUZgZIO9 NOLxzXNhURStZAGLFPkfFJ4BrSUuYDM1xC1vKDjiZW PcJSGaU7aMMlUemPmfFC12oUcjoaRdqKYfCCr+Qe8AQJ2cm2AkDDr7lbHsZMsqVAP6ULotOTVxPTGoAC YcRLY2EER3PEWJLbPfSBIqQOGnBXriXCMyTQXwcg8CXCLyPZL8RlK2OwLhORPrVPSqGPveMRRkPCDdVP I2BAVqWVViFV2FXnWlTTGuEIIdJEdhRCOcXFNfhy3L WCGtBKSlGJQvBKTtMIVvBETeDYzxZVVtXTG1UmG9SYCoMPXlUZ4OEqPyMCIzVSh7EcOnMLGwMOCicq4S JKGuZVNtJvs2JpIpCGDxRUAtHTicOVEsEGKkOMYkTBEvJSCrFF8UPfBlYOGjPVE3PEEvHPIqDWQulc4Y UKUbGGYpZSMmRaXoFYSrMSUfVIveQBFpBFK7OoL2WR TtWJCwKV5YHjPeETArQDl4IJGdLNSfIWQxyu0UFDRgHFKeBPEjBaMpTXFyAHHeKPwtQRShNTRqHjK3HP BfIUJlNG6DSkTsMNCoYaK8AIJxAHYkQFIgbx7LTLZwJWAiNEowMbEzEPWeMSIyBCcxAZRzQYGuIBS2BT OyTLFdRW3HMxWeQMNhPrBsJCQyWEWjEGHrjd2WVKOp XXSlKsI0TgGyCWCsHGVbEQzeNIGlHIMwIlF3UEGpZEFtUF1RTxMzSAVgGbK3UmIjHIQfITRmor1NUSUr HHZvCUx0ITGuPHQcTAXgUKbbRBQyNAS9JYi3HPQsCZQxQH8TVmTwSPAlAhC3VXDdYGClGTFgzk0WVEEv VBLcDdT7PlUdVEYpBEUxPPxsMJWvQIW9YfavYIFiAS XoCN4PNxRdWGByIrl7YbZlOGZyPLMpqf6MNOGjDTBqVqpgHcElDELpKRIzCQejLXCfJPN2AHH4YYTsAH LjOI6RLoCjVRBvZmrcMTNrFELkOAFaof0OUPUwBCKiYXKaJOFwFIAbYLYaZXsiPBVxKAH1REC5ELPcIF UoRH4ONzRnDLCdEVGmWYMaFJGvUUFprw7OUAByKDQ5 AGNjBHSkGJZlLNSjOCkoGIBeIGAuJtR5LOHpFZFlDU6TGhKrYTLwFGK8CYkrXUUwHYHtvh5VWXQxNKS1 HZe8MNYfUAXiUUJvNBrjMBJwMJVwUVZmERBcHYXtQZ2XGbPcHEXcNLO6CLZkZYSpAVWcol2IHBGsSND5 Upw4AqAlSFBuSMGcUWcnBLJdPBO2SOR0NVHuNBKtUF 8EYiQjEMKpSAThCALbNUPbVQJhne4FvFNuvPvift6GFGvYHb3DcMegKAJ2RBivSm3zcTW1ObYxNDWGBl 5TbsZoQVSxOVTNOYxpBXMjBPQvVYDjYHh0DTn2ZjFiCZJ9GEHiTgy3Z5L4LFd9OsO7LmO6AVTlSgS0NO hfYTr9RBP6EbphJZC4CZEkWVl2QVRoDAF+IF0gDQ o+Rr1Ih5NpdiP2ryMmNNk9KNZuBB0GXIIWA1AGOr== ID Date Data Source [id number] 09/07/2020 03:15:47 PM EST [facility] Name Value Range Interpretation Code Description Data Sanjuana rce(s) Supporting Document(s) Progress Notes [facility] MNPHHy4vXmIETlVa57/IFAkbHPZmx7WvKDweAQo5DEskFVHxC2PgUUH7xI6cQYG3BVtLSgJwOwZfFoCm lbm [file] AgICAgICAgICAgICAgICAgICAgICAgICAgICAgICAgICAgICAgICAgICAgICAgICAgICAgICAgICAgIC ANCiAgICAgICAgICAgICAgICAgICAgICAgICAgICAg ICAgICAgICAgICAgICAgICAgICAgICAgICAgICAgICAgICAgICAgICAgICAgICAgICAgICAgICAgICAg ICAgICAgICAgICANCiAgICAgICAgICAgICAgICAgICAgICAgICAgICAgICAgICAgICAgICAgICAgICAg ICAgICAgICAgICAgICAgICAgICAgICAgICAgICAgIC AgICAgICAgICAgICAgICAgICAgICANCiAgICAgICAgICAgICAgICAgICAgICAgICAgICAgICAgICAgIC AgICAgICAgICAgICAgICAgICAgICAgICAgICAgICAgICAgICAgICAgICAgICAgICAgICAgICAgICAgIC AgICANCiAgICAgICAgICAgICAgICAgICAgICAgICAg ICAgICAgICAgICAgICAgICAgICAgICAgICAgICAgICAgICAgICAgICAgICAgICAgICAgICAgICAgICAg ICAgICAgICAgICAgICANCiAgICAgICAgICAgICAgICAgICAgICAgICAgICAgICAgICAgICAgICAgICAg ICAgICAgICAgICAgICAgICAgICAgICAgICAgICAgIC AgICAgICAgICAgICAgICAgICAgICAgICANCiAgICAgICAgICAgICAgICAgICAgICAgICAgICAgICAgIC AgICAgICAgICAgICAgICAgICAgICAgICAgICAgICAgICAgICAgICAgICAgICAgICAgICAgICAgICAgIC AgICAgICANCiAgICAgICAgICAgICAgICAgICAgICAg ICAgICAgICAgICAgICAgICAgICAgICAgICAgICAgICAgICAgICAgICAgICAgICAgICAgICAgICAgICAg ICAgICAgICAgICAgICAgICANCiAgICAgICAgICAgICAgICAgICAgICAgICAgICAgICAgICAgICAgICAg ICAgICAgICAgICAgICAgICAgICAgICAgICAgICAgIC AgICAgICAgICAgICAgICAgICAgICAgICAgICANCiAgICAgICAgICAgICAgICAgICAgICAgICAgICAgIC AgICAgICAgICAgICAgICAgICAgICAgICAgICAgICAgICAgICAgICAgICAgICAgICAgICAgICAgICAgIC AgICAgICAgICANCjw/rGKuL1ttyYUrjuE0R9jiJk7Q Sw5ECL3xb7BqLSVnFViqihSaWygTDnNgEOCiYivRUyq5MMhtXR3UyAIdU6ErI1LwJAgpPO7MDQHjFIMt wDQsQMUmKUOsWfL0JWXuGUcyGK4PhDGxPOzuWSMgWGNbLzYtDXPpYTDtWDExTULcLPIKGQ1OYpKjA4Wc vK17ZIFLQi9+NYqennDjKskQMiH7QNVfs2VaNLd9BR 1IDMIkMeltw7AfINNrVFHOUAycVR7WZOB2KPScOEIbPi9LMAMxM047upPcAO1XFg0IIhMjXK4gik0IBV NqYSGqLecOVdr6XIvyXF9JzFNrUMsLzm9svpKclgCUs8ZencTolEBShFVnjoPTnOUgZCZJHCPesKQxAk SyCcSsPiZyVQR7BVSdNJ4mZJceDU0KGWY2USidXTOa WGUbS7zCJfWvGYrxZVRmdSdlZN7XCgIsT1RzrhHuaNLfVESlJKVXFi0+WBfoccHqEstZMyAgEOVle1Gy SXq8OC9RFUQpCVawJW4LNLKacI1iCMpuNN6OMrLjNaQqEUZJLfVfL79auNSoDZv5O3TdYbPyZLToPkwu ZXMgPDwvTmFtZXMgWyBdDQogID4+ID4+MBrvFV1JHF smzqDrIKQtJa9GULJeYXTdMQ2hVOSwIQBbX1Q4bZjaVURRCmDqF5uwhwizMX4ePQIvW178mGllivOmUY D4UPHrLu1VFCKzXVS5PPKmjOBrSpqiVEFJIEmbCI0AtODxVTE8gV3uQVknCAEwSEHlZ5pSVrLwkYhqLX 51bGwgbnVsbCBdDQo+Wy5NRS3kf2RrPQc0sdYePOjj KONvYItnFAYyJQCuMOTrYXS6ZYT8SENASeMjOSPoVONyXCilAWPhEXCvhs9HKBEhBLQ7NLF1RGBvBOMr ZTZaZCjlCASpOPE2ZDn5BQFzMLFlZS7XNmRgACIrRTFsSSjlZWQvVYXvno4ZDDFuBJDsOaKsHuOyLFZv QJMwARpfQUOtDSOvUGGoLGYrTJUsJU9VLrDwQAMvWU EzTqjlQQZjMZBxgy1LHDNmMPTkTYG1FUEuAPRgOWNnBCkpKQRvBHW5IdW1YYPjDHUwSY9DNaRaLRIjIY t8XbVyGAAhJQZitp5IIZIfGUTmVAuyEbTuPRQmIWRaWSqwPRNpLTQiXQDaCJQpKWZwIN9RMfPnFMNaDC QgPPVzTVLeAUDaym1CVTIcVARuTEOsWTCcIUGvRSFj CYsdJKHeCWZuGJhlDHMgSATjZJ7SQeZuUMJbWQM3FHQiBCByIJFoqx5YNUDzAZVwIoR7WTSiDHUuSTBq SPnqDOLxJNHfQUNkAKFbMIArZT8CKsFqOUWfXnDhSZRnTWGhBVKphs9EIOZpMTWhJGY7JtJoJZRsAVTk JXfsCHLrQEF0ReZ4KBXwKJQpZS0FQzMjZKEkIwD1OY SaZAMeZBHjot7EQOPaHYWpKwN1KtHrDNHnXKOxJVapCVOhXCN4ZQG0VSGbIALmFI3GNiWuVFAaCzuoSg MdFVIeFXMoai6FLVQcMAMrBhTvDUXdERWlMWCwYDirWICjYCR3RwY6JLDtFMMmRD5LNkFaQNBaLzx8Xg QxFFQzQATont5GNLNpIJRyLRmyDKHzWOZgQJFnYYnx EDWyZLUfHBQ5EAPiGFEuOC0XBbJsPBYoZHAoUEUqACTlPUPxvf7KPNWtKOI7KuR6ZPDgCMOyLLHpBRss YPVxIHCeSyj2AMObECIqTG4KXdWyRLJuVUF6NIvmWRQtGAEcsl6DKIRjKRR9Lps6MARaXOLmYLVwTAis WUPcJMP6OVd0XKPfUPJcDL5BRkLhEOKrQRNnSfUiVE XlDMSsyr6EHTXrUHL5FCtyKUQuNQHrICAjATfrRIItZKC1XSg7PWDaLQZoUD6MOcKjOBYxHHFfDlDuJF XcPBNfyv2BCCQlQVV2PnGlPDXsRHHrLTPbTUa8asIqwVZrKTa3CY0RT8XbvzTaDNVTLi0Wx000ONZtOZ ElDs0XU4ftAt1oHTWbVVRMMu6MZXz4OEO2UpX4WTV7 MFnoHuMqKdH3MietB0JtXTzwNqR3UjB+KJf3ATMaGMCxQKxiM7PyUARgHFX7OPSlGYO7QEZjPfpaOI0a XSANCj4+PJyfyYQtzCezPGXWZxL9AxJ3OZuaXXGEPi2T ID Date Data Source [id number] 09/07/2020 03:13:21 PM EST [facility] Name Value Range Interpretation Code Description Data Sanjuana rce(s) Supporting Document(s) Progress Notes [facility] ZMOXXr3sVdCRRqWl44/TLLtaXLPzr7GjFRdcJJg8MCveYSTwO4NnMFJ9bZ4pFOY9ZOtNHhNnXwZcTiDw lbm [file] AgICAgICAgICAgICAgICAgICAgICAgICAgICAgICAgICAgICAgICAgICAgICAgICAgDQogICAgICAgIC AgICAgICAgICAgICAgICAgICAgICAgICAgICAgICAg ICAgICAgICAgICAgICAgICAgICAgICAgICAgICAgICAgICAgICAgICAgICAgICAgICAgICAgICAgICAg DQogICAgICAgICAgICAgICAgICAgICAgICAgICAgICAgICAgICAgICAgICAgICAgICAgICAgICAgICAg ICAgICAgICAgICAgICAgICAgICAgICAgICAgICAgIC AgICAgICAgICAgDQogICAgICAgICAgICAgICAgICAgICAgICAgICAgICAgICAgICAgICAgICAgICAgIC AgICAgICAgICAgICAgICAgICAgICAgICAgICAgICAgICAgICAgICAgICAgICAgICAgICAgDQogICAgIC AgICAgICAgICAgICAgICAgICAgICAgICAgICAgICAg ICAgICAgICAgICAgICAgICAgICAgICAgICAgICAgICAgICAgICAgICAgICAgICAgICAgICAgICAgICAg ICAgDQogICAgICAgICAgICAgICAgICAgICAgICAgICAgICAgICAgICAgICAgICAgICAgICAgICAgICAg ICAgICAgICAgICAgICAgICAgICAgICAgICAgICAgIC AgICAgICAgICAgICAgDQogICAgICAgICAgICAgICAgICAgICAgICAgICAgICAgICAgICAgICAgICAgIC AgICAgICAgICAgICAgICAgICAgICAgICAgICAgICAgICAgICAgICAgICAgICAgICAgICAgICAgDQogIC AgICAgICAgICAgICAgICAgICAgICAgICAgICAgICAg ICAgICAgICAgICAgICAgICAgICAgICAgICAgICAgICAgICAgICAgICAgICAgICAgICAgICAgICAgICAg ICAgICAgDQogICAgICAgICAgICAgICAgICAgICAgICAgICAgICAgICAgICAgICAgICAgICAgICAgICAg ICAgICAgICAgICAgICAgICAgICAgICAgICAgICAgIC AgICAgICAgICAgICAgICAgDQogICAgICAgICAgICAgICAgICAgICAgICAgICAgICAgICAgICAgICAgIC AgICAgICAgICAgICAgICAgICAgICAgICAgICAgICAgICAgICAgICAgICAgICAgICAgICAgICAgICAgDQ s4F3mcABTiMMXjTQ8eHLo0Ny6+ZNxXDiYzMKK6zeRv dA6HAX0oz1LgHMddRCVqh3YxEQk8VO5CHNYeUWuzGJ8GVKaotf9UFIShJIYfnVCAk9nnBlMcLMV7UCRw UbgjVY9WXOMeA4rardJvLINaCKCNOP6NWjYjD2TdoV34TAKBLt7+UYghpxHeYivPJkO2JMDub2LvHNu4 YG7XTHGeLhckj3FhGyHyKFESCQhuIJ8XUCR3INO8EH HlZt7YKPAtB580apZyKI7OIt9LZyWhPL1lag2LZpVeDVNcQryMQsc3VMvcII1LsYNqXQsBsv0cecMonv ENf2NdccTulARBHHWkL1UzDFcweMSicxLoSB7kNCZbYs7kWz0mYFTjVWVlGqWrTITSZH1GXKWrFEQcwM UhZKSxCOWMDY9VWGxoGYA3VflfxnByoNCuERbkPJ3N YXJlbnQgMjUgMCBSDQo+Eb5IRY1tl0NeQVkkNmRiOQ7yum4IGAiQWcYzZ1L4lPNuT0P4FKlpZz4IZNRo UKSrLtRuAOFWTOncWJ9OTA9vmhU6JV7ClWKlJOWrJQAmyNDnMLe4Z92kbFXmAXesZC4FMZG+Rosanne+Pg0K NXKgFYAxJFEsNgAiMBKDHkRcY6FdJ5EVb5WqH3HjAU 31hRdmexNoBUdaLK6JGT4wOREnRRKSYJ6StUSnyC8sidRyTJEfCFQQQpHkY62efEBhSLZmZLW4FAFgAg 5OLRGqH7EcxqVveKrshuXeRKRyNXTUJU2VZAyugjKguTLbuWxfEW71sNwnQZ9WJm2ECjQzJV6zkt0NgT JtLw7AMHDdLR2NKFEkAIAmFIRvQYA2WAHjOpUxXYgc RANbXXMxZQP4AQDkMXQqXO8CYyEuESBbKdL0YHIkUVPcLJKgva4UTYFePNLoCvFhJbDoMNRkTWFmCYlv ZWFiSEXeNFN1OCFdCOOpWO0NKdOjFKWaXPO2FIOuHPVdVIKgcd8BZBGqBDNmArLpDoHtRAHtDESfMErw TPItLFEaKUA5LFApKGCmKP6JIqTlIIWlVALhSvXxDB QtAUMfib9GRFUeQXFtRrD0FCOkWTRgRXHkZQgbDXKrFDJ8SLGwPRNlQTGtWJ9BYeQaBTIdTEG6MNvdCF PcWEOgis6UOKXiBNTiTKd6XNTqPVVeKJFfTNguGKAmUVD8SRJ0XEPvCYUaCV8UDwPgATGnLGl7PPWnRY HzMFDiaa5MABFpPUKnTeW1GwVpRHBbVETcRLmhZHPf QFH5ZXAmNEEiASJvBM0SZyUwVFHvDIdlMLbxOPGmXDAwrx8UJMZrTPAzDQc8AaQoCVSgMKKeWLiqMJSc LWC2AOdmSFUvXEDzUZ0AWfFgQCXjUFizHdJgJCRwOYDtjf4AVSRfGLSnPOIaLlHcEHFcPPAcIVjfMZRf CTGtNMm3WIIoGDVwXE3HBeQlNMKlUeM0PjClPDWtHH Nrjl1RYOOvAXNhXST0FfRlBGPtTUDnXRodIKPeBBBmAEBrFVCjJTLgUG4ALzYdLFTpCxR0EPPsGMGpBF Fxff7KUCMkNWLdKan0SPHyPBIkLZOlEZq0fyVigWVbFEk6LE8RF0UycxOeTecNWv4Ch370MDG6YOXdLa 5QT9bzJn6kQVNqWPULDq6KFYx3QpheGITyNwy9EJP8 TLD0L9OhCUXuKvVqU8GtBHI8XNM+JOnpYMC0EDAxUskyQJRqLPUwZ9R0KSSpYRJ6OzX6JQgrUj9lOVLU Cj4+ZHoryTIvyZefDZLCFcHqKPy0IUqbYJVGSd5C ID Date Data Source [id number] 09/07/2020 01:52:00 PM EST [facility] Name Value Range Interpretation Code Description Data Sanjuana rce(s) Supporting Document(s) SARS coronavirus 2 Ag:PrThr:Pt:Ord:IA.rapid NEGATIVE [facility] This lab was ordered by [facility] in Lab Site and reported by [facility]. ID Date Data Source [id number] 09/07/2020 02:04:00 PM EST [facility] Name Value Range Interpretation Code Description Data Sanjuana rce(s) Supporting Document(s) POC SARS-CoV-2 NEGATIVE NEGATIVE Normal (applies to non-numeric r esults) [facility] Performed on the [employer] NOW analyzer by rapid molecular methodology. First Test No [facility] Employed in healthcare No [facility] Symptomatic as defined by CDC No [facility] Hospitalized Yes [facility] Resident in a congregate care setting Yes [facility] No [facility] Intensive Care Yes [facility] The above 8 analytes were performed by [facility] [id number] [place] [address]#: [id number],[place] [address] ID Date Data Source [id number] 09/07/2020 12:16:22 PM EST [facility] Name Value Range Interpretation Code Description Data Sanjuana rce(s) Supporting Document(s) Progress Notes [facility] HJUDMu5yDrQEXrSx09/YPDzhPTSnr4KnZRhwHUf8DCwxOCLnA4IrZTK6dN9vDSC5SHuNAgInLmEnAzHj lbm [file] Mn4ZGvP1OFP2dIDdWb9DIvZjVXwNYzDqXT8KLPk= ID Date Data Source [id number] 09/07/2020 11:42:00 AM EST [facility] Name Value Range Interpretation Code Description Data Sanjuana rce(s) Supporting Document(s) Glucose, Fingerstick 286 mg/dl 70-110 Above high normal [facility] The above 1 analytes were performed by [facility] [address],[facility]#: [id number],[place] [address] ID Date Data Source [id number] 09/07/2020 11:05:23 AM EST [facility] Name Value Range Interpretation Code Description Data Sanjuana rce(s) Supporting Document(s) Progress Notes [facility] XXNVLg1aHkBVOcWh37/VRFkcTZUdi9PmATlvREr7EHwkKKAuF3OjOMG7bY6sYDB3WIaQChKiNeSeUbFj lbm [file] ICAgICAgICAgICAgICAgICAgICAgICAgICAgICAgIC AgICAgICAgICAgICAgICAgICAgICAgICAgICAgICAgICAgICAgICAgICAgICAgICAgICAgICAgICAgIC TqBRTtEFDpTK7WBFPoHTDjPHMrDRFcVZYsPRPaTQUdGYNmKQGsMZErNAXeKLWjRDGvHMIpMONaLXWmEY AgICAgICAgICAgICAgICAgICAgICAgICAgICAgICAg NYZyPIUwQPAfCJEdBJDsMSPcZP9RWHVySVWqJWFbUVPfUDMzMKIdSOInPZNqKWOvXGVgTLQkXFPnVXLq ICAgICAgICAgICAgICAgICAgICAgICAgICAgICAgICAgICAgICAgICAgICAgICAgICAgICAgICAgICAg EB4KCSPmGGNfNIPsNRReBKBeYYRlOXIzIVDjGAHtIR AgICAgICAgICAgICAgICAgICAgICAgICAgICAgICAgICAgICAgICAgICAgICAgICAgICAgICAgICAgIC MgLAMiSILbJQNsAP9TZBTuFJGzSIUvARSaIYMbKXMdGFFzFTGyMIGjDQSmPUMiFPUaDOQsOAAlQFWuQE AgICAgICAgICAgICAgICAgICAgICAgICAgICAgICAg POXjVIJiOZRrOWHjFTVcBHLyGECrPX4ZEFJqHOHaLNTlKESgQWLuGALyRUYoDABzKTNwRTXjOATmMOQa ICAgICAgICAgICAgICAgICAgICAgICAgICAgICAgICAgICAgICAgICAgICAgICAgICAgICAgICAgICAg QQPvKB7ZEQFaLRTvINArQCFgKGVeYHHwTXMtMLRkZV AgICAgICAgICAgICAgICAgICAgICAgICAgICAgICAgICAgICAgICAgICAgICAgICAgICAgICAgICAgIC YqQIHxKULzQFXnMTMuGX3ONTWeCAWzEHBgUTIdHUAfFCYmVZXnVFZfJRUqPJNkNWYbXQSvPBJyQGMxOC AgICAgICAgICAgICAgICAgICAgICAgICAgICAgICAg OIKlJPQfETVkVQNeVGAaWMWyJZKmLNJiFE6ZMABvWHAqZCGrPSIoQJHiJNGaZTStMTNyFWWvLPMwEVCt ICAgICAgICAgICAgICAgICAgICAgICAgICAgICAgICAgICAgICAgICAgICAgICAgICAgICAgICAgICAg RTNxPSTyWG0ZJZ25aDHuh8Q0VHZoAO2kcmv/Pg0KDQ lwmwQkmKFsVO5VGcFjMQ3urg6OLhXzME3lsz2WJMvRKsSfX8Q6nWMpMRSoFLZWZfNxN30bHKugPx80BS ggIXClQjRmAHm3Dx6GKlDlJ9hmHYUjLbT3EAMxTaHrGDnuJT0Gi7EpfFHaYCh+Yd3APU9yd3QxQCrzNl GeMG5kbn1SBRiBMeMiX7MgebJ6OVO2JBSuGk3LRXOf PBNqpQJzUhPqGJYJHaPdU3MmbL10CKYIQr0+WVrhzuMsDsvTUcI7XMRbo9DpOEq1ZB2ITQKdCSp3qYDt VNAhD7Cwg0WcRn84RQDiRajpM1CyCXHqIYRnMpTpfEjkQCBmNVAzBl3zXx2vCGLgAWCrDjRrBHUDBW3S PVBiPFBnrRDxUKQvSIBKCK2XCJzrHHO4TaplhrHxeG WdWJqoUG6OUOBaouIkDaNlSELRWWz+Bc6KAZ6ll2OdFJutNOAdKQ1efm0OVFfOGwEeO0G4zRRwE9N7KL vkFk3YDJZtVQMlXvGqFQMWOLirWH7UAM7ekqF3RH1SmPShTFKwJPOqfZLgKJm3N15hfFPcICxdCQ5BPY A+Rosanne+Cj8CCDUiHKGjGMJkPvAtVKCRCnKyV6AhM5QS t2ZeK6VpWN89uWaaqeKnCPztPL9VMN6wAVCvJYBMMI9RuNFozR6qiqAmFgDwOWTREdYpQ10kgKDuYFKx OZY5ANWsJd7USEQfN8SabeNdbNhlqjVtBDZzNVNWDR1HNQwhwoHruMXkqFjuTE08hWfzWE5PKu4NCdBg PQ7vie1NfBGhNm1WAHIsKA2YUOImSKNxURZpBTA0GI JrBrZzKLbyAOSeFKCvSEH1XUDgAIDtFS9NHmBkBAIaCourUcsmVYBsUCUbxg0UARTfXHNnIBE6NnYxVU FyLVKgZLhnYBCmQDYlIPS3GODaEDHpEF0YTnZhIJMaCWF4WInsMFHfVAKqvt0TPZJfULFgHxZlMrKdSP BeDTStVQysYAGxKTMqQTPtDAYxSGEjUO8ZWkCzYVPq FKImYkCgMWDyHBToyv6XNXPqIIJwLGD4WiJdLDYvREDuMJpmIWQvZAN5YsU7IQMrOFJaDO3LOfAuUZLv EGF8XFJuYYMwFUCgup2UMBNxALIiIYH2AQHnUOSsDFGbKKmoDKJzIRY6VXLqGHFyMPOvHZ1OGwYjVWIf ZDbdBRhqRWSuCFNoyy9DSFKzBEVaCXQ3QMIcUFOtER PhWRciKFTkJVZ5Cck1DRTqODNsBL0ODsNkFDMwBXd8VNBeNTMjQMSuzo5NNQWyIGQnTQu2IgFhGBGrVU CcNNypUAEwTBNpCUc8IIPiSIHcRL0KOgIgJCOvNrVaCQteXXDvVOMmux4CKQNlCAJfMCGsELVoXCQjVZ WdEDusBHEcQIGxVlegAVQbJWIsUE7ADlJhEIGmBcZ6 OnKqEQFgUFZgbq3TYKCbGZCfAhUoFjGdTQChIRZpVHhzPYZnTXQvQvc6GOFjEMMeDR0DRuPzASBhIjZ2 YbCrJTQpSXWrxo3WLQVgTOXtDcxrCdVeALEiRGWrTQdhCJGyNZI2HHU9MEZgZCUsCP5BLuNiESVuOsii JCXxRZDiQBAwbb6PNVAsLJZfSFK1YaVeNPDrGUFiIZ lwSEOmBPO2SyCaPJMzWZHnVL1UJkGuZRSuQlu4CcXlODOiSTAvcw9FEZNfNZAzRRMaDRBzZQNkNOJqPR ccQGLoQBT6ZxL0JSHsJGSqXP2ZBfOlDXTxRkb6BlraHCBhWBWsov4HMYNoHCDbTNP2NUUwNCHaHJTxRA mcBQQrNWPjXlJ8RWLhHDYdOM3SUhGeETJpMvMtVPEt HMToJYHlra9CaBCavMgfel5CXZoXWp3JmCchNWS6UZdxMz1lsJXcPSFcWEXHXh2ZanBwEAPcSHRWOQue KPHrRSUcJGz6EpRzPqj5FQW5NFGwTcB5DoRvIEU6UJGvOGT3QqP6F3DvQAW7YPSsNLYtDVt5OGP2REcz YfN7JiI7SUS2KZa+ZH3lVRg+Ji7Jm7AuubF5zxQxPAkpRUTcCG6ZIFYAU5CKQz== ID Date Data Source [id number] 09/07/2020 10:25:00 AM EST [facility] Name Value Range Interpretation Code Description Data Sanjuana rce(s) Supporting Document(s) Glucose, Fingerstick 187 mg/dl 70-110 Above high normal [facility] The above 1 analytes were performed by [facility] [address]#: [id number],[place] [address] ID Date Data Source [id number] 09/07/2020 09:00:09 AM EST [facility] Name Value Range Interpretation Code Description Data Sanjuana rce(s) Supporting Document(s) Nursing Note [facility] TAEKHr3rEvKDVsMx52/SRLiuZHIjo1DjTOweXZb0LNltTGPuB0JvOOK0gF2wFID7PAnKBiNqRlGtFjJa lbm [file] YjM+MG3fIVv+Gf5Ai9HynaZ0onTzGIy4CUVwEMezJXKCMz6A ID Date Data Source [id number] 09/07/2020 10:57:00 AM EST [facility] Name Value Range Interpretation Code Description Data Sanjuana rce(s) Supporting Document(s) RBC Morphology \\Present [facility] Anisocytosis \\Moderate [facility] Macrocytosis \\Slight [facility] Microcytosis \\Moderate [facility] Hypochromasia \\Slight [facility] Polychromasia \\Slight [facility] Platelet Estimate Automated platelet count confirmed by slide scan [facility] The above 7 analytes were performed by [facility] [id number], ,[place] [address] ID Date Data Source [id number] 09/07/2020 10:56:00 AM EST [facility] Name Value Range Interpretation Code Description Data Sanjuana rce(s) Supporting Document(s) WBC 14.54 x1000/ul 4.80-10.00 Above high normal [facility] RBC 4.87 x1Mil/ul 4.70-6.10 Normal (applies to non-numeric re sults) [facility] Hemoglobin 12.2 g/dl 14.0-18.0 Below low normal [facility] Hematocrit 40.0 % 42.0-52.0 Below low normal [facility] MCV 82.1 fL 80.0-94.0 Normal (applies to non-numeric resul ts) [facility] MCH 25.1 pg 27.0-31.0 Below low normal [facility] MCHC 30.5 g/dl 32.2-37.0 Below low normal [facility] RDW 20.3 % 11.5-14.5 Above high normal [facility] Platelet Count 287 x1000/ul 130-400 Normal (applies to non-numeric results) [facility] MPV 10.6 fL 9.4-12.4 Normal (applies to non-numeric resul ts) [facility] Neutrophils 66.8 % 40.0-74.0 Normal (applies to non-numeric resu lts) [facility] Lymphocytes 17.0 % 19.0-48.0 Below low normal [facility] Monocytes 10.9 % 3.4-9.0 Above high normal [facility] y [facility] Eosinophils 0.8 % 0.0-7.0 Normal (applies to non-numeric resu lts) [facility] Basophils 0.4 % 0.0-2.0 Normal (applies to non-numeric resul ts) [facility] Immature Granulocytes 4.1 % 0.0-0.5 Above high normal [facility] Nucleated RBCs 0.00 % 0.00-0.20 Normal (applies to non-numeric r esults) [facility] Abs. Neutrophils 9.72 x1000/ul 1.92-8.31 Above high normal [facility] Abs. Lymphocyte 2.47 x1000/ul 1.20-3.70 Normal (applies to non-n umeric results) [facility] Abs. Monocytes 1.58 x1000/ul 0.14-0.97 Above high normal [facility] Abs. Eosinophils 0.11 x1000/ul 0.00-0.76 Normal (applie s to non-numeric results) [facility] Abs. Basophils 0.06 x1000/ul 0.00-0.22 Normal (applies to non-n umeric results) [facility] Abs. Immature Gran. 0.60 x1000/ul 0.00-0.02 Above high normal [facility] Abs. Nucleated RBCs 0.00 x1000/ul 0.00-0.02 Normal (appl ies to non-numeric results) [facility] The above 24 analytes were performed by [place] [address] [address], ,[place] [address] ID Date Data Source [id number] 09/07/2020 10:45:00 AM EST [facility] Name Value Range Interpretation Code Description Data Sanjuana rce(s) Supporting Document(s) Blood Urea Nitrogen 20 mg/dl 7-18 Above high normal [facility] Creatinine 0.66 mg/dl 0.67-1.17 Below low normal [facility] N-Acetylcysteine (NAC) and Metamizole villanueva ve the potential to falselydepress Creatinine results. Baseline values before medication adminstration are recommended. Patients undergoing treatment with phenindione will have falselydepressed results. Patients on phenindione therapy should be tested with an alternativeCREA method.Toxic levels of acetaminophen may lead to falsely depressed results forpatient samples. Glomerular Filtration Rate >90.00 mL/min/1.73m2 [facility] GFR Reference Ranges:Normal Function or Mild [...] of Health and the National KidneyFoundation. The Clinton method used in calculating this result is traceable to IDMS standards. Glucose 196 mg/dl 70-110 Above high normal [facility] Sulfasalazine has the potential to false ly depress Glucose results. Sulfapyridine has the potential to falsely elevate Glucose results. Baseline values before medication administration are recommended. Calcium 9.2 mg/dl 8.5-10.1 Normal (applies to non-numeric resul ts) [facility] Sodium 136 mEq/L 136-145 Normal (applies to non-numeric resul ts) [facility] Potassium 4.2 mEq/L 3.5-5.1 Normal (applies to non-numeric resul ts) [facility] Chloride 100.0 mEq/L 98.0-107.0 Normal (applies to non-numeric resu lts) [facility] Anion Gap 13.8 [facility] Carbon Dioxide 26.4 mMol/L 21.0-32.0 Normal (applies to non-numeric results) [facility] The above 10 analytes were performed by [address], ,[place] [address] ID Date Data Source [id number] 09/07/2020 07:10:00 AM EST [facility] Name Value Range Interpretation Code Description Data Sanjuana rce(s) Supporting Document(s) Vancomycin Trough 20.6 ug/ml 10.0-20.0 Above upper panic limits [facility] In cases of complicated infection, such [...] above 1 analytes were perfo rmed by [address], ,[place] [address] ID Date Data Source [id number] 09/07/2020 04:23:28 AM EST [facility] Name Value Range Interpretation Code Description Data Sanjuana rce(s) Supporting Document(s) Nursing Note [facility] UIZAQf2zTiSTQnYn85/KIBziIBXsw3WwFDhpOGq1CFiwVRPlK7EnNRQ6nN2kLLA8UQnOTtEbGwRrNtLv [facility] [file] C1TNu0WzvwSiItQHU8KWl7MiXrIPP0OiFlUP7BNa6LAaK8PIO0fSIvQi5LKdNrFAMPUgFuUE3OXRv= ID Date Data Source [id number] 09/06/2020 07:41:00 PM [facility] Name Value Range Interpretation Code Description Data Sanjuana rce(s) Supporting Document(s) Glucose, Fingerstick 313 mg/dl 70-110 Above high normal [facility] The above 1 analytes were performed by [facility] [id number] [place] [address], ,[place] [address] ID Date Data Source [id number] 09/06/2020 05:42:00 PM [facility] Name Value Range Interpretation Code Description Data Sanjuana rce(s) Supporting Document(s) Glucose, Fingerstick 322 mg/dl 70-110 Above high normal [facility] The above 1 analytes were performed by [facility] [id number] [place] [address], ,[place] [address] ID Date Data Source [id number] 09/06/2020 11:24:55 AM [facility] Patient: DIANA OLIVERA : 1955 [facility] PELVIS W WO CONTRAST Provider: [...] rce(s) Supporting Document(s) ID Date Data Source [id number] 09/06/2020 11:27:00 AM [facility] Name Value Range Interpretation Code Description Data Sanjuana rce(s) Supporting Document(s) Glucose, Fingerstick 216 mg/dl 70-110 Above high normal [facility] The above 1 analytes were performed by [facility] [id number] [place] [address], ,[place] [address] ID Date Data Source [id number] 09/06/2020 08:36:00 AM [facility] Name Value Range Interpretation Code Description Data Sanjuana rce(s) Supporting Document(s) Glucose, Fingerstick 303 mg/dl 70-110 Above high normal [facility] The above 1 analytes were performed by [facility] [id number] [place] [address], ,[place] [address] ID Date Data Source [id number] 09/06/2020 07:49:14 AM [facility] Name Value Range Interpretation Code Description Data Sanjuana rce(s) Supporting Document(s) Nursing Note [facility] IRPWVx4oKcYJHxPs45/KDUxeFFObj7TuNLqrMMa9HXbxHNHpU2MgBDR9kA1oUXR1CPsLSjMgCeOnSmUk [facility] [file] PEQeNRK5MWI1QAH6UWYxTCoiYiToGW1RLu2LCtH7DYV0dZExBz8VUjNlVuGRTrCkGR3TJQv= ID Date Data Source [id number] 09/06/2020 06:27:00 AM EST [facility] Name Value Range Interpretation Code Description Data Sanjuana rce(s) Supporting Document(s) Blood Urea Nitrogen 19 mg/dl 7-18 Above high normal [facility] Creatinine 0.67 mg/dl 0.67-1.17 Normal (applies to non-numeric resul ts) [facility] N-Acetylcysteine (NAC) and Metamizole villanueva ve the potential to falselydepress Creatinine results. Baseline values before medication adminstration are recommended. Patients undergoing treatment with phenindione will have falselydepressed results. Patients on phenindione therapy should be tested with an alternativeCREA method.Toxic levels of acetaminophen may lead to falsely depressed results forpatient samples. Glomerular Filtration Rate >90.00 mL/min/1.73m2 [facility] GFR Reference Ranges:Normal Function or Mild [...] of Health and the National KidneyFoundation. The Clinton method used in calculating this result is traceable to IDmChron standards. Glucose 228 mg/dl 70-110 Above high normal [facility] Sulfasalazine has the potential to false ly depress Glucose results. Sulfapyridine has the potential to falsely elevate Glucose results. Baseline values before medication administration are recommended. Calcium 9.2 mg/dl 8.5-10.1 Normal (applies to non-numeric resul ts) [facility] Sodium 134 mEq/L 136-145 Below low normal [facility] Potassium 4.1 mEq/L 3.5-5.1 Normal (applies to non-numeric resul ts) [facility] Chloride 98.0 mEq/L 98.0-107.0 Normal (applies to non-numeric resul ts) [facility] Anion Gap 8.6 [facility] Carbon Dioxide 31.5 mMol/L 21.0-32.0 Normal (applies to non-numeric results) [facility] The above 10 analytes were performed by [facility] [id number]# [id number],[place] [address] ID Date Data Source [id number] 09/06/2020 06:27:00 AM EST [facility] Name Value Range Interpretation Code Description Data Sanjuana rce(s) Supporting Document(s) Total Bilirubin 0.40 mg/dl 0.20-1.00 Normal (applies to non-numeric results) [facility] The above 1 analytes were performed by [facility] [id number]# [id number],[place] [address] ID Date Data Source [id number] 09/06/2020 06:08:00 AM EST [facility] Name Value Range Interpretation Code Description Data Sanjuana rce(s) Supporting Document(s) Platelet Count 213 x1000/ul 130-400 Normal (applies to non-numeric results) [facility] The above 1 analytes were performed by [facility] [id number], ,[place] [address] ID Date Data Source [id number] 09/05/2020 08:07:51 PM EST [facility] Name Value Range Interpretation Code Description Data Sanjuana rce(s) Supporting Document(s) Progress Notes [facility] IIPEQe1iUgTZUnEg89/YOQpaCAQge7AnLPhpYIg8VLrgHRGnR9EjKMZ3yE1eMNA5OHcRDyOlHsGrEmEh lbm [file] VxD0FZP6nUIgRz1PWxB2VR1XQULZO1UNNe== ID Date Data Source [id number] 09/05/2020 07:56:00 PM EST [facility] Name Value Range Interpretation Code Description Data Sanjuana rce(s) Supporting Document(s) Glucose, Fingerstick 322 mg/dl 70-110 Above high normal [facility] The above 1 analytes were performed by [facility] [id number] [place] [address],[facility] [id number],[place] [address] ID Date Data Source [id number] 09/05/2020 06:30:31 PM [facility] Name Value Range Interpretation Code Description Data Sanjuana rce(s) Supporting Document(s) Progress Notes [facility] WFMSYj7fYjLVCsVc97/QYDctBBUqj0OrSOvpHDu5NRfnFUXgU4KqUKC2wW9yEQJ2TVeYUbZlAxOpUnUj lbm [file] upper sorbian/2BNEarkPvkc0M/z91z5joiMGMg9LfeOt617jVBs [file] CiAgICAgICAgICAgICAgICAgICAgICAgICAgICAgICAgICAgICAgICAgICAgICAgICAgICAgICAgICAg ICAgICAgICAgICAgICAgICAgICAgICAgICAgICAgICAgICAgICAgICANCiAgICAgICAgICAgICAgICAg ICAgICAgICAgICAgICAgICAgICAgICAgICAgICAgIC AgICAgICAgICAgICAgICAgICAgICAgICAgICAgICAgICAgICAgICAgICAgICAgICAgICANCiAgICAgIC AgICAgICAgICAgICAgICAgICAgICAgICAgICAgICAgICAgICAgICAgICAgICAgICAgICAgICAgICAgIC AgICAgICAgICAgICAgICAgICAgICAgICAgICAgICAg ICANCiAgICAgICAgICAgICAgICAgICAgICAgICAgICAgICAgICAgICAgICAgICAgICAgICAgICAgICAg ICAgICAgICAgICAgICAgICAgICAgICAgICAgICAgICAgICAgICAgICAgICANCiAgICAgICAgICAgICAg ICAgICAgICAgICAgICAgICAgICAgICAgICAgICAgIC AgICAgICAgICAgICAgICAgICAgICAgICAgICAgICAgICAgICAgICAgICAgICAgICAgICAgICANCiAgIC AgICAgICAgICAgICAgICAgICAgICAgICAgICAgICAgICAgICAgICAgICAgICAgICAgICAgICAgICAgIC AgICAgICAgICAgICAgICAgICAgICAgICAgICAgICAg ICAgICANCiAgICAgICAgICAgICAgICAgICAgICAgICAgICAgICAgICAgICAgICAgICAgICAgICAgICAg ICAgICAgICAgICAgICAgICAgICAgICAgICAgICAgICAgICAgICAgICAgICAgICANCiAgICAgICAgICAg ICAgICAgICAgICAgICAgICAgICAgICAgICAgICAgIC AgICAgICAgICAgICAgICAgICAgICAgICAgICAgICAgICAgICAgICAgICAgICAgICAgICAgICAgICANCi AgICAgICAgICAgICAgICAgICAgICAgICAgICAgICAgICAgICAgICAgICAgICAgICAgICAgICAgICAgIC AgICAgICAgICAgICAgICAgICAgICAgICAgICAgICAg ICAgICAgICANCiAgICAgICAgICAgICAgICAgICAgICAgICAgICAgICAgICAgICAgICAgICAgICAgICAg ICAgICAgICAgICAgICAgICAgICAgICAgICAgICAgICAgICAgICAgICAgICAgICAgICANCjw/qBAnB7ij qICbmmF0R3fjXl4FWf5EJL7ex1IxGVJxDZeclaRuZx wUJqOwKUErBvqYScs7HNlmZX1YwRNuI4YnG5QcLBcvFL1MCCHjVGLxeBExBRImTWVfOoU5AYUyTExoNN 9KoZUuNLgvJIDcDAZsZlHvSDElXKBgITFvGP3OQPBvM555veOeKd2JIn6PUuGiHS6ujo0VSWKsLWYcMd fHZtx6NEpuHC8RxHXvcTN8RGNxRGNGBpXcT9nuo6Oo FJZfLUTDPUuiHZ4Lr1MbqRGdATg+Kp2DTG0wj1MjPPl6IGYiMA9qya7ZZOxERbHwI4BoaCqtQSYkl7jp ZLQkGO0vbQFgOHR8ON9udrN0EHFqWUukAD1IWGF4JYKzBkChUmEjHXSkUkigKKPWGVxDUuQwH9Vkj8Vk VnY8OSShUeQjXQruANVyQzS6IH61wPhnZW3QWCEiBD HkBW84IWWpYVXyTt6CQe7LGlKgAG8wzp1STRUpUYFhSbmLYah1CYqrMA1CkGSlT0GfjTQfg8pKGgCkU1 ZAZZY7SQLlAg9CNOAgZzXlFQYyABfvKF2xCNAmIKIKeFrytnP3RN0LID8iokNfXT4XPcJsOa1xJz6CEc NzZ8WvA8OeJOJeVUQGPQvdBA5LGJrrEV1lEX0Im5UQ cPKtqZ5lmh9SUPNpNTMtDecuzk1UWenyZ4A0uJvlFBMvNQFgHHXERNxuOG4GIBTsQPD0NPJbIOZcZOAQ OaYrJ96hKV6MS3Nnn94cSpQ2PDKyLqYfTPxvQF86mTurlxNwzJDywKrpQT8LHx3+DQplbmRvYmoNCnhy KNRPFsQnQIHLIcVcXWUrJQKuWRCgVaU6UiQnPq8NKA OrZCCzPZRqDrFmVIObFDOrAKbvNQKgYKDnPBw3YZHmPBWwIT0GTfGzSVOqGPB2JHjjTFPdGFVswf1IPS FnNUMiKWD6CdQpOQEfKHOsJYksMUWgPBZqWSdcGTRlQQMjOX8CRcYeVEHgQCHjKFhgZMDoBBBwuv1YLH PyRCEjRWP3BqNkHFAaKIRtVBpwCJKgVKU4SdU2NSJz NXCvJP8EWfUvUKRtVHm4CWOgDPHzXTYvur3JDDOlMDHnKck6AvEkIVBgQCGtWMmySROrENY7YyT7UUQp HFUeRN9HHfVaHGUwEEx4ATuwZRAcFCHlii9BPPYaWYVaNMQ7QmOwMWUaOFCkFZcfDQQtLKGrJKD7UMVv NHCyFX7JBeZyBAUkDQJiKECeQDSjWPTulm5QFZRyPT YoMCFnAnGgFMBaSMNjPVuqFSIqGGAiFro6RPPeDSLuGO7NOtUzFZKrHeOtNUBcOBWpLNIuzh8GFWNzKH AaCbGlWVUgROQoTNSzOCliJNVjXFQjALCmFBLwIFUzZO7SWwIuDQAkWxQ0UEJzIABzXRLcki8AFEQeTR IzIRPiAKNxJQZfERGpLGfhGWJaKHG2LZSjETKqTOUm TM4QLuMmUIRzArDyUKyzVWNaHXUahc7AZNBcTJZqDJr4UGBbBAIwUNCkHOmtYSNoPXV5HOT2TBLqCHMo PQ2DOgXuJGDoUbIpYGzaGFMtIXDxve3PTYUlPSQtHlB9HEFjTVGrDYCbUPtuIYWzLYZ8DPW2SHRlTYNl BQ9XVqCoPUZhPcf1SEliIQOnKHGnei9BWSAtGZP9NR zuIGDtPYXyCCNvKFvuMRWhTVIaWjX1LDWuTOBdQR4OLnAmRDDqBQM6UnXsWEFwFAFmzz0DBLMbHEJ8TR atGpFlYVPhFMVsQEkbCZEyBHDyXICdDYLdCVSiEL1OMkXlYMYsTDQ6UGMvUFJuIUOfjx6VBVVaSBM1Ba p3ZeYqPWRcCDHkAEnvIFHaXNQaKVq0HPAmSWPxPR3S FwWkRIWfKHX1HFpuGAVdVSWzdu0DFTKiJPT8FFYcQJChAXTcLUPlZUgcQFWiDAZ0HQk2WKJnOKAcDT7T WxIbCVQiVBKoCuTaBKWaCMYywm2SxRIuxBroxm3NKIiPBm2VuJduYDIfCTpuLv3fvCF1HxGfTAYUZa7H bmZvIDEgMCBSDQovSURbPGMxZGJkNDJmNzdmZGRmYW CwKPCrH3D6LgL6GeJkWNOrYkI8RaJrWrU1LhY4J7DlYHJlCSU9GRA9YTD2HserTAIcF4W+QD7cRLq+Pg 0Cu2XhriZ3sgIqDEt2SSX4WN1PLVCMU2EBSt== ID Date Data Source [id number] 09/05/2020 06:10:55 PM EST [facility] Name Value Range Interpretation Code Description Data Sanjuana rce(s) Supporting Document(s) Nursing Note [facility] IUGAWb2mRsTTKqBs79/LJBxsCTBow7TiUVmbNNm3CWeaDDQxL2TpEZS2mM5cXXX1JQxENbUsBcUkEsSa lbm [file] AgICAgICAgICAgICAgICAgICAgICAgICAgICAgICAgICAgICAgICAgICAgICAgICAgICAgICAgICAgIC AgICAgICAgICAgICAgICAgICANCiAgICAgICAgICAg ICAgICAgICAgICAgICAgICAgICAgICAgICAgICAgICAgICAgICAgICAgICAgICAgICAgICAgICAgICAg ICAgICAgICAgICAgICAgICAgICAgICAgICAgICANCiAgICAgICAgICAgICAgICAgICAgICAgICAgICAg ICAgICAgICAgICAgICAgICAgICAgICAgICAgICAgIC AgICAgICAgICAgICAgICAgICAgICAgICAgICAgICAgICAgICAgICANCiAgICAgICAgICAgICAgICAgIC AgICAgICAgICAgICAgICAgICAgICAgICAgICAgICAgICAgICAgICAgICAgICAgICAgICAgICAgICAgIC AgICAgICAgICAgICAgICAgICAgICANCiAgICAgICAg ICAgICAgICAgICAgICAgICAgICAgICAgICAgICAgICAgICAgICAgICAgICAgICAgICAgICAgICAgICAg ICAgICAgICAgICAgICAgICAgICAgICAgICAgICAgICANCiAgICAgICAgICAgICAgICAgICAgICAgICAg ICAgICAgICAgICAgICAgICAgICAgICAgICAgICAgIC AgICAgICAgICAgICAgICAgICAgICAgICAgICAgICAgICAgICAgICAgICANCiAgICAgICAgICAgICAgIC AgICAgICAgICAgICAgICAgICAgICAgICAgICAgICAgICAgICAgICAgICAgICAgICAgICAgICAgICAgIC AgICAgICAgICAgICAgICAgICAgICAgICANCiAgICAg ICAgICAgICAgICAgICAgICAgICAgICAgICAgICAgICAgICAgICAgICAgICAgICAgICAgICAgICAgICAg ICAgICAgICAgICAgICAgICAgICAgICAgICAgICAgICAgICANCiAgICAgICAgICAgICAgICAgICAgICAg ICAgICAgICAgICAgICAgICAgICAgICAgICAgICAgIC AgICAgICAgICAgICAgICAgICAgICAgICAgICAgICAgICAgICAgICAgICAgICANCiAgICAgICAgICAgIC AgICAgICAgICAgICAgICAgICAgICAgICAgICAgICAgICAgICAgICAgICAgICAgICAgICAgICAgICAgIC AgICAgICAgICAgICAgICAgICAgICAgICAgICANCjw/ xCEmF0npxCRnegX4I5dyPf6ZEd6SFV3wm1OiITBxFFkkdxBjCbeXLoIiJZWaQttKNzc2OTxnXP9UjYZv K2VuE1VvBTdvNH8QQVDhSCGyoAWkCGPuWJEsBtW7UVGmKFcqHW1ApMHmXYhsFOPdZIGwXL7IHFPeA993 nwEfNG1BJr1NXaJpGY5mus5FVdVvQTNaBdmBJqu1RD ifGS5XoCZokFNbMoZhLESRQcMzF0bdc6XsDvMcQBGDADodTO9Es5WhuXHaTFu+Iy2JNL7bn3YuGHduTi CxHS8qjt5LGIfCPsTjF9JnwSruIY24vgWdlqejRh35MIVbhMGBGI8zKJFArRMuQG62XQizSz8wORCzFp 0yRV0vLBOiXUN6EyHxQQJCOF0GGGWcYENcxDIsDURc JJIUWD2WSHaqZOB1PbklwiVexFPhABuhDQ9HMGKjxhJdVgOkBGZIXJt+Zc9BFI3em2FjJOjdVISxTA6u kp1SSXrGTwEuE5X8kTFiL8J0OScnFq2VYBSnQOUbYmRlIDHYJFdhQY6LEM7lbxO4BU1PpAGzEEApEQYe tFTmQXt6A71osWHcDQbqWA1YIQM+Rosanne+Kq5OOYOlEN MaSDLpFnPuJZJASoSvF3JdJ2VMg6SnE8GqLG51kTbzelHuVJrfWZ8GHB5oPENkYEMNNZ8OyFGtfF0vgf XpLyEsBXQTWwGoK69zuBUnDQTtXBKiUKFkJi9QBWXsN5AhmzUxpUtumqNwLMZlRCUFAF8UXQwuqzDtgV SzdAljDF31eSclKU0BVa7KNgExSM5aez1SdCEdZk4Q QTQhOC7LECDsTTMwIUPqHXV2ZFZsDsHhXRgxWQMzAOTkRHM9QCLbFWMhMU1WEfPtOWDqXNq0EXOvQVVf VRClgb1HOWZhDMZcYFX3IMCsDODhAMGlJGmwGZBxMUZsCPP3SNEcQANfVD8KUwJmAFYdSRT9HYWqUUEi MAVqoy7BZOXzJGIdNZN2NoOfTWVgXEXaJHepNJPoCA ZyPiH1DEBhDKZyRZ5KVeLaSMPlMAY1NUEpPGPrXDEjmk3XVZZwWVQqZtt7XJEfYEYyVHSsRFtrHDYyXA RcFTI6GEFlEHTnRR5VVnQkATTlLICeYTRuRBAkXZDjjo3DSKQfGHVtYNCcOENqMBTzNCOiPSuvRDEvHZ V0Ohx7OCIlFHJvRX6RKmJrXNAvZNE4EIAxMXSeXSGx zv5JZMLhGZPtHjJnDjFaBBNdLEDgCKopVXZsXMV9KEOzFKJeHXTvKF3ESfFdDORfYDz6RJpoRFWoVPTz wp1FCDTeQWXhBZCcIRPbGBKqEKObGQbiRBYjISW1WjZ9NXGjQTQrKN3GVfKpCYOwBUj2YTztZMMwEARq sa7DIIQsQTVxSGLmLJVuVMBdLMGhNAmqTEBrRGPhYz HiVGFmYVQrCD5TKmYcVEMvQmV5ZIYgMFXjQYWcao6DHPTeNUSnJWc6PIWkLQOmOOWsARh3faSueARsYJ b5LK4IW4KclyOiJxYYWi5Np146GVK0TVDvVg8RP1rbZj8qQYQgLZWJZg6VXFe2SrAvP2W1ZOK9SGM4PU W3OGvcEXl0RjfxLvw7PncoNHN+ONsfGbS0HLX5UQSy VxjaEGM9FZIcLynvGGWiFqtlF7I0LV6jDQPHPv0+QRqxxRIuxIenWIHKFlRcIqA8HXcoXEHLUr9R ID Date Data Source [id number] 09/05/2020 05:12:00 PM EST [facility] Name Value Range Interpretation Code Description Data Sanjuana rce(s) Supporting Document(s) Glucose, Fingerstick 313 mg/dl 70-110 Above high normal [facility] The above 1 analytes were performed by [facility] [id number] [facility]#: [id number],[place] [address] ID Date Data Source [id number] 09/05/2020 02:57:43 PM EST [facility] Name Value Range Interpretation Code Description Data Sanjuana rce(s) Supporting Document(s) Progress Notes [facility] XNNKFz7yLwRKMmMk08/NHXbpMIKlo5HnJMlxSWz6JRvoXKLhE1MdKMF5xV0zOAL0FNnLRgSmLaFbVuCk lbm [file] Tk6Ee2HSb8J2v/Tierra/6mf2i1jEpfFxyM49/6cE/GMm rh+aTlDeAts5JfCzb1eLuIzU1TxhMt9BmfGpBdAEkselGcyfP3tuI8EDcs55I8hNzJMoyEvnPJd7tH0/ 1i/0zjxYSafgm6PVVHMQa9nAp4YeE8Qn0m9tt0isL90n72nA6wjKvLs787wpVk5UiL/WLapxZtkWriqH h0xou+YU6ottdrltWAB52HkUYw5bbjrg9oXV7s24ei f+kMYQ4Go0/k9DZf9kqQRXkFslbdM6/zd220ZM21s7KoNoC0lj/+vY5QPex4e7aRJ9aZPef1acxU5eeB 0z3n8/CbyZLYE30ocDEOpOV0vPqvliFYG8Arla3f7xrxyCmraUgOL+XFYVunk+qhupq+/vem1ZNnQs5F T5G/mpLHt1i6depj+5yM4b6rjKff9XILilBKvnRSlv 624h+M7WA7VjUW+k3xKm994IoO3rY67B+Mjjr06ybo0On9f/yysiK2shsJ1apcY2EQ8ar3DTaiEfDPSE /3in1wpuoitR3xU5Uo1THkn9gNWfSzUBahnjKn/xfauSA45nfNspL9nxXwqLhsiJ0tLcypDqthuSXjDL l6Ste+i45yHZyvWxy/QQvF4YS4WvrVwqBnK2yAo8ee D92h6FCl+YUlkfTNlVeGLxZTPdjGFYq3MlZ40yFhvDv+3X2d7+b7nEsnc8MH9leJ+GSVjGh2Yr2Yg6g6 uBe52dbVgRfqGgTp7ui09VvYc8kane4PgkaPKQrVioKqEBslOEFxlcLW0bQ2Pn0ovJY/SMlpMENKwuBA rixu5sKnyvjnj2MLPg0eBs7vczgmxuuVZYfalu8aHd Qy/HNFXTD059xjrcw3go7YPHzztqBuTs64LSw4MexuY/6CfTJGXZc/e8rmretAFskeqf/t0Xze9sja1h NGlfDPGsm3+mjnrhN2jJUiYJSX8aqVKqwopgr1bpmfwwSiLCte+uryfHp+vVGsCjzXx3dAoyTrPGXf1o PfxyymV9n4Oa8xtWSzJ1Zp233FQr01cY9s4BD2N11g jvUWTB9wYdKHFf+zFwFNZmoH/iN0iMl1dIms1aV3+wGCUJUVvxF6eJ7XH1xuKsSjpxbHMAQCRWTemJF6 t1WxoMK013dnp/Nw5SNem4N5NV/saTqMieyhDt1V+FI4C+AtPyg7CbpX5YFyUomMfAfsovf5gGqKu3vX jPZ58lDJtm/lv/HO3v7vIsPfD/WkNXGTbLKjXJ1eya 9lJO8yA/AMpxue71z5Gm3udN6n9og765vk2W6faSRw45m6cxAvMnwTNxvoKJezN9e713JOH0hw82nQMP BpBz6mR7xryYg7W4MTGFtSLDMf8lF84new4OBzJnSpSPDcFic//mSWig2BQrsm2KVZLtuhv/JVzO+H6b zeNRbmp/km5hjkWyQYecMmGR/c6ygognerM69VO4It BzBUtSZ8ifcAHz6+xML89tqX/Jjt05D87Lb61IM20zEEOBS1masFpZ5TMN5xLj5B/kLSBQbSLN2SDFnG cr+ttVEBeZbEZlp//fls8f3uCFsuLU5dHG0CIkKmhVFJ8q5M7+Y9Wk31QAF4Thfz/lxkG+1scrwkzWr6 kUzCdbXO5+xAK68DAoVBRQ2ZW0sTc3trAHvotGZE4N stL3P4kZ/qyNAn1k0dw2vPS1Qt1brJ9B3N3mF5EO6lgvBvGdpxIKsinzozIACY2SGaiK+rmzUW04sjEO coEwiI7AH66+physical optics teacher+XW4kD9Noc6CQS2dRLKz4nYXxf/XWWiTvW//Hr2uHemCahW6S2eBQJTBsFs398Xg/ [file] v4Rvt0PGb5XYZlEjH3CVA1DDNxQfFtYR1DPy8KUaG2GYQ3rBCbYg6WXLB3YDwOFjZfAV3HRTm= ID Date Data Source [id number] 09/05/2020 05:25:00 PM EST [facility] Name Value Range Interpretation Code Description Data Sanjuana rce(s) Supporting Document(s) Vancomycin Trough 20.5 ug/ml 10.0-20.0 Above upper panic limits [facility] In cases of complicated infection, such [...] [place] above 1 analytes were performed by [place] [address], ,[place] [address] ID Date Data Source [id number] 09/05/2020 12:24:00 PM [facility] Name Value Range Interpretation Code Description Data Sanjuana rce(s) Supporting Document(s) Glucose, Fingerstick 318 mg/dl 70-110 Above high normal [facility] The above 1 analytes were performed by [facility] [address] [place] [address], ,[place] [address] ID Date Data Source [id number] 09/05/2020 10:56:17 AM [facility] Patient: DIANA OLIVERA : 1955 PACS System: [employer] [place] [employer] [facility]: ULTRASOUND ABDOMEN LIMITED Provider: ERMA Galeano upper [...] rce(s) Supporting Document(s) ID Date Data Source [id number] 09/05/2020 07:47:00 AM EST [facility] Name Value Range Interpretation Code Description Data Sanjuana rce(s) Supporting Document(s) Glucose, Fingerstick 240 mg/dl 70-110 Above high normal [facility] The above 1 analytes were performed by [facility] [id number] [place] [address],[facility]#: [id number],[place] [address] ID Date Data Source [id number] 09/05/2020 07:10:55 AM EST [facility] Name Value Range Interpretation Code Description Data Sanjuana rce(s) Supporting Document(s) Nursing Note [facility] IDMUDf9oQqTXRqLg36/NMSpvYJCcd8TuWNghJIc3DJhfXVWhF1HcFNL9rK8qHSE8JHpJCvLzAyMdEuYl lbm [file] Jhj0VCC9SNTtZnY7LXB7NHF9HhBmDV0PLy1IEgP9WHA7nDMaEf8SDeZeSeXERlZfCO9HTOg= ID Date Data Source [id number] 09/05/2020 03:04:49 AM EST [facility] Name Value Range Interpretation Code Description Data Sanjuana rce(s) Supporting Document(s) Care Plan [facility] QGBYOu4gQsMASgAj62/HZDauZXHuf2YmEPkuOQe8WSxqDFIbE6RvCRJ0hA6rBEF6UGxHBdEnBkIrOeWg lbm [file] M3xo4gvyRA9+nYshihhOyjZvVJC1xoLrBLiKwANv23f9K+NupTVrYvnqoHlAByl8H/bP2H+Ifeoma/zjoUm9 /NhQfCtCNFEXyM0SUrF1/R8bOT+8WjbWgRPaBtDTheDBqm8g217UOW6/4T2gCPMPC6Bm0uhvuK/JtH/v +Aq/FYCPA9PC3Q7RGq/rFIk2nA2MtZlhw9ooeN34rH L2m5ZD7huvT7Y0UOm2x8Vy827Us3lYi6oHb9i5iddnaJoeyA3dOdxatBIiz4QDoSoiZT7T+Sánchez/tNN/ A+zF/zbGKkAsrFe6HMB8W2lHaexW0Ic6kfQnc3Osm0O9lUpX4InEFznuQh5LYkxS5Vzh9qvqyfr+EmnZ oKtocX6dQjISBVf3IMIVVsM0C0uBMoRl1VaWdEcQbi egn+V0p/Ym+bQ/weioQ82cKjhxkgFKGYB5Y+Ke1+hu+FiOmKsd2PyC3eSjARZWFplqtXe4H7TWer/O2g NoSRLpcUz2fbMJLuktKaxan+7FqsfphtLVigyQDDIthy12qJCnBqm66YIJ+T/UyC2M5KC68aGi1B8b50 X6j7OU9VXuJPdu2DbeONU/LtK3Pe8ueArBqVMKIils EcihyEseCKQ0LhIWXmn4c+Gaetano/UYfWiX/f2yXCxfYymzJBgugNq9ZtYYlANYPf/7Kxe0EravoRq9MywZ [file] MWXRYz7B ID Date Data Source [id number] 09/04/2020 08:51:00 PM EST [facility] Name Value Range Interpretation Code Description Data Sanjuana rce(s) Supporting Document(s) Glucose, Fingerstick 443 mg/dl 70-110 Above high normal [facility] The above 1 analytes were performed by [facility] [id number] [place] [address],[facility] [id number][facility] [address] ID Date Data Source [id number] 09/04/2020 07:22:47 PM EST [facility] Name Value Range Interpretation Code Description Data Sanjuana rce(s) Supporting Document(s) Nursing Note [facility] EUEXZz5mWoREXiVl13/RNIkqXWEtu6AjAJncZRt1UPasEJRvK2JkRTZ8cI1rTFN5LQqQUlZsCeCrVaZ4 lbm [file] ICAgICAgICAgICAgICAgICAgICAgICAgICAgICAgICAgICAgICAgICAgICAgICAgICAgICAgICAgICAg ICAgICAgICAgICAgICAgICAgICAgICAgICAgICAgICAgICANCiAgICAgICAgICAgICAgICAgICAgICAg ICAgICAgICAgICAgICAgICAgICAgICAgICAgICAgIC AgICAgICAgICAgICAgICAgICAgICAgICAgICAgICAgICAgICAgICAgICAgICANCiAgICAgICAgICAgIC AgICAgICAgICAgICAgICAgICAgICAgICAgICAgICAgICAgICAgICAgICAgICAgICAgICAgICAgICAgIC AgICAgICAgICAgICAgICAgICAgICAgICAgICANCiAg ICAgICAgICAgICAgICAgICAgICAgICAgICAgICAgICAgICAgICAgICAgICAgICAgICAgICAgICAgICAg ICAgICAgICAgICAgICAgICAgICAgICAgICAgICAgICAgICAgICANCiAgICAgICAgICAgICAgICAgICAg ICAgICAgICAgICAgICAgICAgICAgICAgICAgICAgIC AgICAgICAgICAgICAgICAgICAgICAgICAgICAgICAgICAgICAgICAgICAgICAgICANCiAgICAgICAgIC AgICAgICAgICAgICAgICAgICAgICAgICAgICAgICAgICAgICAgICAgICAgICAgICAgICAgICAgICAgIC AgICAgICAgICAgICAgICAgICAgICAgICAgICAgICAN CiAgICAgICAgICAgICAgICAgICAgICAgICAgICAgICAgICAgICAgICAgICAgICAgICAgICAgICAgICAg ICAgICAgICAgICAgICAgICAgICAgICAgICAgICAgICAgICAgICAgICANCiAgICAgICAgICAgICAgICAg ICAgICAgICAgICAgICAgICAgICAgICAgICAgICAgIC AgICAgICAgICAgICAgICAgICAgICAgICAgICAgICAgICAgICAgICAgICAgICAgICAgICANCiAgICAgIC AgICAgICAgICAgICAgICAgICAgICAgICAgICAgICAgICAgICAgICAgICAgICAgICAgICAgICAgICAgIC AgICAgICAgICAgICAgICAgICAgICAgICAgICAgICAg ICANCiAgICAgICAgICAgICAgICAgICAgICAgICAgICAgICAgICAgICAgICAgICAgICAgICAgICAgICAg ICAgICAgICAgICAgICAgICAgICAgICAgICAgICAgICAgICAgICAgICAgICANCjw/rBHiP2zbvXWyncR4 M1kyNd6YVu4KGY9lx7RoTXGrZGowsbDrEyoSRvImIA KhRzfPHaj8GXvnOG1VgKZqI0JvK8QcZJseTO8SVNNrBCWrnBEuGXIuSBJgXuC8NYDxHGbrXI1TvBErNB aoYOLoJMTnOS3AZTUqT214gcCiTO0ZPp6PBwWiIW2qeo1PLtSxVWKiYigVPzs6BCwqGQ2DoFSwwXOeBo DgWIRVSdNwI1lhn0XhAtQeNRYBFMwjGX0Ui8UvsUGj DQo+Dp3RZB3fm2RkSRamMcKsOG2vco9TVYoTFeTpQ5OhrMqnDG94vvDkmolhOv62KWYjcTZHvGC8NAkf NG0fwkrolfWgCPpgOu9bOYZlFa0rAH1cRAGmSXL5KiT9FBLRDQ3ESGLwPPZvoGIsISEoKJJFFP8HOZwc NEN4VlbytpIteGHrOReeCX3PBZVefcUcHxCnVULRIF o+Wh1UZN3ha9XcCOjlQJJhYK5tbh0XNXoZYwKcP6X2uZKyB6Q6FDakPm8AMEUaIOGqZcNnIKXRTZyzVO 6NEP1gdcK5OZ9TtIQbGTAaNCFcvAKvCIg6Q43jhRGrBNbxAH6NVTS+Rosanne+Gt1YUGVcVGYeLLAgNnPqON ZSBhNhC0RpD4DHc4OyV5GqGR57uJkvyaYsOTasCF0G AX3xLUDjDODRUI1NwDGjuZ2qxvFaGoZaFNFOEiNkF59jfBDqOADdCYGsWVJzQa9PMMYzT9PblfMmuTgj pmYbTSTsNMFXLY3WPUtddvQhoEHvtAlyDK70oAtfME6KJz0TGhSyXU0wun4BgLMvRq3FJOBhBG2QFVWd IGUvZPSaEJR2QENmDaAiAIhcNMEcKGCrKRN5ETTqZB UzBN8RUtIvLPGyWUpmNXzqSBSvICGhqd9TBXBhTEXxWLa0BmDnGFYwAOVfHRblJIRgZANeBWQ6BOSkLR LpCO6BMzAvCCIyDSQ3ZKGwJETsLSSsws2KUAHtVSWsCVh4MTKzNUQcZXOsMKvmAJMcQQQzOrIyPGCiPH QnPT8TTrTuFGSaVXW0FYNwAXBtUMJcqh3BLGQzEOVh JsN9IHIsYEAtOYGtQHjcTWByQXH5KRZ4AOPpPKXtKO7PViYbJRQpSMTnRUAeERJeNNHjeu9BKZZfQYRp SUSjKmLjLUDnXAPoIOgmODRyAJA9Kyl9ZMWtLBRcNW0ZQxWhHUAxJPalAJMtXTIzSMRsia2ERVHoRARx AuHiFMYzOYKcQDWqWNloXLZrXXC7TRJpIICvZAOpJQ 6VTvOvYTLwZFq0IWCtMGDePTLigd5GWRBpDWOqHMGcGIUyRLZwRRBaQQswHZJiJIM3YFYqMNJcOORpAP 8XBjZgRDDdBMq5JCEhNAHcCGGolj1FWDYmFFQzJOQtTyPpXLNgNAHbLThjTKBhWLVsYFNkQFYiPGVkBD 9RMfPrVTGtPjY3BjXaRDMtXRNkyu7JOYQoMEBnGTZ5 NTYgFNJaBMRgPSg0pbEtaLWgDVq9UN4BD4AtrzHeIcFRGw1Jw212TRX9KJBbDh7IE3nhNc4iJPWxVRND Fn8KAYu1Nxd7PSDwSeVlVTIaHsKvSKM8JNBtOoS8CrRhL1C6SsW+EDjhBSWbKVHoFkO0BEWrEuH7Zbmj NSGaZhe8ZnHbZObqUh9yDFSJQh1+SGwvaBHqnKguZAOYNtEcYeD5ZQioBRNNLc4M ID Date Data Source [id number] 09/04/2020 07:01:40 PM EST [facility] Name Value Range Interpretation Code Description Data Sanjuana rce(s) Supporting Document(s) Progress Notes [facility] BYICQg6nAiJUYbGt73/BAQhgEWTju1OqRGfhBKs8JQyuQSPaI2ExWXC3mM2lWTC6NSoMCoDbFpCcZwC6 lbm [file] ICAgICAgICAgICAgICAgICAgICAgICAgICAgICAgICAgICAgICAgICAgICAgICAgICAgICAgICAgICAg TRYkXWRzLTAvGHUbQJIeNWDdDSJeHVXcXYGjGWQmXZLtHQLpYLJtMW5WTQGaSKAxZDDzMEVsJHIzLPSv ICAgICAgICAgICAgICAgICAgICAgICAgICAgICAgIC EeCKHyDROfTOOzFRCdEDAkFWQwUVFsKNWdREYuSHEgFOKnACCtRIGxKWFmIIZlYIRpBA2NDJArIQGhEC AgICAgICAgICAgICAgICAgICAgICAgICAgICAgICAgICAgICAgICAgICAgICAgICAgICAgICAgICAgIC AgICAgICAgICAgICAgICAgICAgICAgICAgICAgICAg EH4JSCHeYBDgJWCsBVLvHTFpBMDdEESqYQDpBVGrLCRqYMGvJTPyWZJhPDZgEHQgCSGvIIKxHGGeEGYf KDEsJZGsBPHkWVKpMURdDIDoIEJkPQTjACZwVPJkLJGbGQRiDBUyUQOuZB4DILFgSZQqNJSfYCOnHHPi ICAgICAgICAgICAgICAgICAgICAgICAgICAgICAgIC JmZXBiKLPcHESeLZLlKWSdIKQpXZUiKSYrJMSuKBOfLHTeDDCqXCIrIYMrXYViNQJkUFTuRX2HQLGwQB AgICAgICAgICAgICAgICAgICAgICAgICAgICAgICAgICAgICAgICAgICAgICAgICAgICAgICAgICAgIC AgICAgICAgICAgICAgICAgICAgICAgICAgICAgICAg DGGtAK7BGJNzNQCxGBReRTIbTMXjHFYkHGYrXPJcZVQqEXEzKNGdMJGiZXBgACXqEVBlTCNwNWWiJPZt HAFqHNPyHTIaYFGuOYXzVSXvJQBbHKVvFECoGTLyQDNfUWRjZKHvKFCmYFHaRX8UKLRrSEKzJVRbPWFr ICAgICAgICAgICAgICAgICAgICAgICAgICAgICAgIC PpGLCaABTlUTAkEHNsGEWzMDPpMRIyHNEqFDVxHZAcPSVsQVJzLVHiCGBpFCLqDDOfLHWbEBOsHR3RQL AgICAgICAgICAgICAgICAgICAgICAgICAgICAgICAgICAgICAgICAgICAgICAgICAgICAgICAgICAgIC AgICAgICAgICAgICAgICAgICAgICAgICAgICAgICAg LFYjWTUjOH7VNAPmGZKvOIFaZIDdPLRcDNXsZAIlCEJuOODuUANqCVPrHDZmUWWtSSXgYGMyNCHrXVAk GMFbQGBnKTPlAWRwXRAkULSyVWCvNTMaERSnKVHgXAAwDNUyWXYlSIOgBVVuXBTtCH5XZZ10qMPkf3L6 BBZhLK7rqax/Rg0OMEdygsEqqPYlUO7UHrGtSM6ijk 7KAbPaXQ9yjo1EJCmPJeRqD7Y1pZWaOXXiULPEBdDsU82sMUnaYs64XGgpDOOvDiEzKGn3Nw2YYtWgR0 lsTUCjKzV8OTSgFrK6JULqEeZ4KGXnQmOkMQdhBF3Ke0GkeFByRCz+Sp3GVS4lm8MgOKdoIbCkXK3qjq 7KYHmEDxOzY8FrfcS9JFDnVBMwAn4EYHOjZBBahVQi NgBvYJAIYcSxA1VouO65NZZJMc8+TZpnafZuCvdEMnGwTQBeq2VmUWn9OE9IAUArADn8rQTdVKAmN6Kj m2DvQi92MEPzPrwrOHymNQEqhHWaoZJ8c3FuC9qmRYMNURK6YUDyPGryChOdHYYcTAdfOCVNGBeECnTy J2Ojh3MfOrN2NCBjDrUlTIubSDWoUiN1QK16oErhFE 4JHKHiUZEyNS63CRZfIOLfXv0BBr3IShZoAV7zst2BStPsLJRoPswQVwx6TKpzTQ6WaIWnI5GinFTsq3 mZQuLvD0JDNKUwOMOkAe7ATOHcJtUgMXYzOZzyFJ0wDKOwZQMVaCmdyxS6OQ4IHT7vxrPiFW2QOkZxNy 3pWg4LAxLgM8QpN6ByPBIoHGTSGDgeYD6XCZmaCQ4y WA4Rs2XOfLMjaG8vbl8ZPKLlUJZwBxeceu3AEhvcI2O9oFrpQKEiItEvGGCVEYjvAK5WWRTwQIX0QHBm SGEsFGGQTlYqC54mIS6YK3Jrw10uMdH1EZSmBwXvTSjvNO29yAwkdxVhbLNcwZufBU0RYv8+DQplbmRv SpdSFxjdEJNFCjCsZnDQWfFxEOEpSQHyQPSzRuV8Ec YqRl8JOIQyKGVqEIWjFaNaBFMvVQEwYEmoGEIqMXQ8GIveTCYaZYDxYF2AVeMkSOChNls0PPsfJWJzPR Sxaj6NJYBuGYZcUHB0VeCiEYNsSSJwKUffJTKlBDCjPUA9XQOqPVTxIT1QZjUmXZXoGXUhDvCjEVGjJP Cemi8ILCFqSCCrOPMzENMpVLVmVNSgTItgBBSdQTU1 SOK2NGNrISPmDZ0EDvDcEJFkZLE6YmryXYUyLJLhqh0EXAKrPKQoLiW5XdXrAGNcBVYeZWkrAOAxHHQ8 CVWeJVUySHRsQD0VCwBtOVXsQIuhOHGaQSVaNTPvgm1WANGsWKMwOWWoUCEnQQQtVMKdAApnOVZvDLC0 LxvoVREzVYBwOQ0CKqNwVRGxOAd5GVwbBKUyTXYfhr 8IAPPoVOPzCLo7HMPxHTRjDXAqAQeuWBHeOPMoQxP1PIZtOXWiQA1SXmVzSBXmVIX8CpOpHGKcYMKynb 4LDWPaOKMfAVPaGKDxLOFeFHArJMfpEUNzGUXkTUk2EQVeZSJhDQ5OJoQkCUDnFNWgZJIcGHLgGJSnfa 4PAILaMBSnHiC0LCTiOICkWVNiPHabZCQgSIFjWEJ1 BLReLAMcEI2UViDnBZUjDJA0ZyTyHJMoCQIilb7JJVMhBSKbIxwnEJOkBLScGLLyBKnfSOTsVDY7PNP9 DPAyOTYoRS4ZDvFiOSUyJye4XPTzOKWqXIUeyw1OXLKnJAWdKnC4GXCuJUBmCSZlVXxmKOYxQBR5NAFo ZXYmRVOiAQ3IZyNzAQWhBtygFXymQTPhBBQkmq8VGL FrXWMlYLRiOwMeNSWvLYGbXFrlOINxZGI8JGH6FMWrONYvQO5HPrPmXJGlBrZtNhczROLwDPCgbz5CPI KwORDvMYW5EPJiCCCkPJIvREo3hyHeySBxMSx8DM7YI6LkswCqQzOQSt9Cp962DBD3NGYkLt4MX2vfZe 9bYDOkSGPJRq4PJJy0SrrxIpFxYPA3V0K7Tei4UfGb CjHcA6KdNmerYZL0QDY+JMtgLSGhJTT9ZWN2DhdrTPNjJ5XgRqT6JKZkV7B1TKGgCV7hKBIYDx8+DQpz oQRztLdkSTMCIpOlSWX5SAzoHSGVVf0W ID Date Data Source [id number] 09/04/2020 05:04:00 PM EST [facility] Name Value Range Interpretation Code Description Data Sanjuana rce(s) Supporting Document(s) Glucose, Fingerstick 352 mg/dl 70-110 Above high normal [facility] The above 1 analytes were performed by [facility] [id number] [place] [address],[facility]#: [id number],[place] [address] ID Date Data Source [id number] 09/04/2020 04:37:16 PM EST [facility] Name Value Range Interpretation Code Description Data Sanjuana rce(s) Supporting Document(s) Progress Notes [facility] PVQYQy3rIgOSKpLc86/UKLnqMQOmt7CtTXkoCWd6DHfrHKXqF6AoNVH3dN8mQAN0NWfQPnTyZpNaEpO7 lbm [file] AgICAgICAgICAgICAgICAgICAgICAgICAgICAgICAgICAgICAgICAgICAgICAgICAgICAgICAgICAgIC AgICAgICAgICAgICAgICAgICAgICAgICAgICAgICAg OM3OGEOnCYOwQWOsNPQtNRIbDOXbTEQsCMQvJGYaTRTqFHEhWKBfPWNsJJHbSRXwMGPrUADmJUOiNJWd MQWfHWHaNKEmNJGtGHWdGISeJQOuIFGxOTYfHRGtDLBvQXYlIBCsBMEaSR3FLBLnPPNxGLFlJEEjFJBf ICAgICAgICAgICAgICAgICAgICAgICAgICAgICAgIC CsWVKnKCVzPXTnTEXvBINlDWCiDLJnPKFkBNEeELNzWDOeMJSgIGXsFQCpVHJkOURdWMYvTR2NWUPcCK AgICAgICAgICAgICAgICAgICAgICAgICAgICAgICAgICAgICAgICAgICAgICAgICAgICAgICAgICAgIC AgICAgICAgICAgICAgICAgICAgICAgICAgICAgICAg GLHqOG1BQFDtXSQyLDQiTRHcLWGbFZDhHSJaFRVoAAPjBUWdFPHyKLXtZUKxGKQdGBYrRLFhKKOyVYYw ITCeLTXiKKIrMAAeKAHnOVWbIITrSWQrUUHfSDXiNPTvUYLcHBIuJKDhPVYrIX8DGSGoGUQtFREtPMNb ICAgICAgICAgICAgICAgICAgICAgICAgICAgICAgIC NfYEUpBSJbUAElGHDzTBIlIGYfVPLqSWGqJIYsCDOtMITnPACrSOOrUVTiWYFrAUOvWZZaJVKrJH1FIC AgICAgICAgICAgICAgICAgICAgICAgICAgICAgICAgICAgICAgICAgICAgICAgICAgICAgICAgICAgIC AgICAgICAgICAgICAgICAgICAgICAgICAgICAgICAg NUFsGPOaLB3QEXFyUJNiTUVmTAXzJKSyICMrGJUjUUVlRYGcSWWbJYWhAWIxUXEaFYImXRYzGRYtEWGd NXFsXCWlHUTzSXYyGKFfRCWrTQTlJEJoQZNxHJUiXRYlOPEgKHWcHCDkZONlDXSfNE5MWTIhBAScURCc ICAgICAgICAgICAgICAgICAgICAgICAgICAgICAgIC AgICAgICAgICAgICAgICAgICAgICAgICAgICAgICAgICAgICAgICAgICAgICAgICAgICAgICAgICAgIA 0KICAgICAgICAgICAgICAgICAgICAgICAgICAgICAgICAgICAgICAgICAgICAgICAgICAgICAgICAgIC AgICAgICAgICAgICAgICAgICAgICAgICAgICAgICAg PQKyZDAgTODoRA5HWT01cUZvm3J8YQFtBZ1djzq/Hm0CXWxtadVzrAQjRL1ERmOrTM1nvh7VOlYvPS7x tf3BIKrOVbJpJ2O2gLIoIHDkUYIELaGlE27jMTkpWg12CUagDCDbMvUvALe2Hk5FGmFmJ0deHEJfJeL2 YNPiKuO9ANEdEkPqMPhmBR4Tu3UetGUxAGd+Pg0KZW 2hx6PpVQxbHyEpQX2ttm7BGTyOUpVtN3XasiC6YMF7YCQbHx2EOYHxHKQvxEMgMBRyQVPWWpEtV3IrgW 41NQWUMe5+PHsjqhJbWncGBiX9HDCck6CnUNb8XH7YINEyYKp0xPUmTTCbI4Fpv4NuNw23VFHeUhjtLK Xdxu9aNNXQa1akdbMvwvtkAVBdRHOuGa3qTT8pLUJb FFToJnIzLLNIIA3SETCcCCYrwPVnMZNzOVLDAU0JCNuoCWV0DmfusbNzhLOhGKnyBZ0JTSQuyvNpPvgo MCBSDQo+Qk6FNF3se4NhTAedUXZrJG0ljw9EXIyVQhKaL4M3jQLyK3R9JKbwJm4KIZKsYEXxBuDzQHHB MLslIA4QNN0ufyP5FR6IgEAhYPAkWNDopNBbWYn4Z2 0uoGAiCVncVM9AGFV+Rsoanne+Vz3YAYLdUWSlXQYjHyLgFIUXUeOtD5PaK8ZCx4XyR1WyNF97uHzdgrVrZM nzXH9FDK2oQXNxMRPYXA2BxWSxcT6xzuLyPmZyGSLJVcPoD69acKJpSQOrKSP6LEYpDm9HXTJlD7Pldu KtePwgpvLcFKKjYHNPRZ2JQFkmqtGdxCFclUjpCW73 iStjUA4XCu9TJrBfPI4oro6PyZDvCc0ZYSLmHD3SLDHkCXYpKQKeIZU0DBGtQxEqSOowYUZgDSWzVGT3 DCSqTFHjHL1GNaCcAXWjDhMdHyRpJVGpIKNwaa0KUNCvZSRiKdFlJnRyCOJkXKIoXMhqOSLsTRTkWKR9 SBEvYSOeUM3MPwCnJZVkCJE2RYklBAChFSYgdw3GAH BqVSHtZdFsRuOmRXYqUVCzMZpgEVXtPZF6PQzrNHEjYOCcHQ1NFzYrARPiZGS7LEUhSZLmHZBfxg9ELB DzGKNjFqz0WjPlLLVvVBWfGRjoWGXnPVU4KWLfIAVqZWGdBI8SNmCkUWTqEJjjLexcMLWkSXNglk0PFG JlATMiOWR4ZHIdHENqAFZsYPfcSTBzLXR3Sjg4XMNy BDCzQM2UMfQiTJShOXj7PrhhYNTjGDVpqt5YIMAzKIZhUPkzDAWoIUZsYKYoVMvtMJUnVZBpEUC3YNXz ZLPnXH7GHaXrJUIuWdEhFLKoDFLhOLOnfr7HQMKpCOQbPMI1CmZdPZBoOWTkIBesDDIjOKUrHeP4DNLx KOOwNQ2XQdOzLLAxMeR7GvCpFBAzCXBrms8DSFSyLL VxHvu4VlTuZRLbZTUrSUwoBGNaIHBlJFS2NUKwVRRxHC2AKlPyCJHpEvH0OaDvWKIuTXFhcj2WNORvGE NyAAQ0WWNhTBQvBAZdGMpkDUQgAQP4YjL5CEPpRJMrDA3CYxLbRURnNzH5QgTeNEDoTILmlc4MFQQfXB ZxLgGxZnWbPYPgBESiEKhnOADkBRN6Mtw5MWEeOCCi SB0FZlQpROOoLnY2LajzPQIyCGFhwc3HuNEytVhsge1VSJyNIv2LwEheTPQmFFiyMg6wlSUlHQBlJKZL Mt0KqiInOMArULEHALzePJQxYXi8NxTcPRdjURNlWaWmOHO7KqG4DwO7VBkaSKh9JcXjJbZ9DEGbXFS0 BXRqYnBuTtA0RjrnGcx3FfnpM5W3LWv9EaT+IF0g DQo+Im5Cm0PmwvA5pdDoTJbnNiP7Zi2SCIXNV8ZQEt== ID Date Data Source [id number] 09/04/2020 03:59:04 PM EST [facility] Name Value Range Interpretation Code Description Data Sanjuana rce(s) Supporting Document(s) Progress Notes [facility] OENMDo5yVxNNAnQk14/MRSapKHLfl5GxDJafFXl9UMttGAWhF9SqYLT7hL8vIAU8AQfLPgCiAkDaWmG0 lbm [file] jEEjCc7YHnUgCvqWZxJsPD6EVEg= ID Date Data Source [id number] 09/04/2020 03:53:12 PM EST [facility] Name Value Range Interpretation Code Description Data Sanjuana rce(s) Supporting Document(s) Progress Notes [facility] GVUTOf9aGpDDLbMp85/BULzhEHMzb9NyHYjtJJr9IIocBZGpC3HeGRG6qW3cHMG3TOmQRpYvGoHdPjY1 lbm [file] AgICAgICAgICAgICAgICAgICAgICAgICAgICAgICAg ICAgICAgICAgICAgICAgICAgDQogICAgICAgICAgICAgICAgICAgICAgICAgICAgICAgICAgICAgICAg ICAgICAgICAgICAgICAgICAgICAgICAgICAgICAgICAgICAgICAgICAgICAgICAgICAgICAgICAgICAg DQogICAgICAgICAgICAgICAgICAgICAgICAgICAgIC AgICAgICAgICAgICAgICAgICAgICAgICAgICAgICAgICAgICAgICAgICAgICAgICAgICAgICAgICAgIC AgICAgICAgICAgDQogICAgICAgICAgICAgICAgICAgICAgICAgICAgICAgICAgICAgICAgICAgICAgIC AgICAgICAgICAgICAgICAgICAgICAgICAgICAgICAg ICAgICAgICAgICAgICAgICAgICAgDQogICAgICAgICAgICAgICAgICAgICAgICAgICAgICAgICAgICAg ICAgICAgICAgICAgICAgICAgICAgICAgICAgICAgICAgICAgICAgICAgICAgICAgICAgICAgICAgICAg ICAgDQogICAgICAgICAgICAgICAgICAgICAgICAgIC AgICAgICAgICAgICAgICAgICAgICAgICAgICAgICAgICAgICAgICAgICAgICAgICAgICAgICAgICAgIC AgICAgICAgICAgICAgDQogICAgICAgICAgICAgICAgICAgICAgICAgICAgICAgICAgICAgICAgICAgIC AgICAgICAgICAgICAgICAgICAgICAgICAgICAgICAg ICAgICAgICAgICAgICAgICAgICAgICAgDQogICAgICAgICAgICAgICAgICAgICAgICAgICAgICAgICAg ICAgICAgICAgICAgICAgICAgICAgICAgICAgICAgICAgICAgICAgICAgICAgICAgICAgICAgICAgICAg ICAgICAgDQogICAgICAgICAgICAgICAgICAgICAgIC AgICAgICAgICAgICAgICAgICAgICAgICAgICAgICAgICAgICAgICAgICAgICAgICAgICAgICAgICAgIC AgICAgICAgICAgICAgICAgDQogICAgICAgICAgICAgICAgICAgICAgICAgICAgICAgICAgICAgICAgIC AgICAgICAgICAgICAgICAgICAgICAgICAgICAgICAg VTAiKHNgEMHbTKMySIFkBFMoAYNbJCVxHZDmMPb0Q4fcBPMnQAGsQE8sESo3Pg4+YDsHSzMpGZX4tgYb pQ7ZXB3dg1OlTTvnRALhr3BfJNn3WC7XQSEcEQqcST7FOSqvcu8SQVGzJHBgcNOEb2jzLyWhOOI2AHCt CeplGO6CEAQbN2mhlaJuJNTaJQEIYU8EKvMzF6RzeI 14OMMFHg4+BWjgbtRvWnkKJsN9PAGxd1NzZVg2IL3CHPZpPmfke5UhLvMqWRABXTtxDQ5UCPN0NGW0SZ FjJl6LIWEfT782jvQcTS1TKn5RPxVhTO0mwk1EQgWuDYKvDkgJOty7CVnqZF1ClJGmPDnJpq1sdaTnhe GGg1ChcqIfbXKSIAByU9OkKPkpnXIpaaMgNC6iLZCn Zj7mMT9gGHDbQRHzIbQsHGQDAU9XWNDpRMMehQCbOZPoBXCYXV9FDQgzAQT0XzsnevSbqJWvMAfxTT3U YXJlbnQgMjUgMCBSDQo+Uk1KIH7ri0ZpDKhiLqImKM7cjx1NCBpAToFeH7B2hLNyE8T3NTfrUl1XXPBf IKCvEgPzCPBEEBboRU0QZJ6aqyA8QQ5JyQQkKFJfON LghBVcKLu5H84hoZMhIGzkAU0ZOUB+Rosanne+Ox2XPBHaXYXzGCNmCbFyUKTSNwGkB4OiR5MYh4GqL1ZdOD 69dXfjbzFtWZufTX4YJJ0oOWGaHZNGTW7IvTNmzP3qweXwLWZjKADCMdQrH28pmLKoCOLbZTJ1VUPcOv 5UJGXvW2BrfiPuvPouqkRxDKLlFFNIOU2WETttrgCs tFOnjZmpCD78eExfQH6POb7QDzUdFH7hkj8ZmNLxGt3LLMKlTA2BKSJiYZOwKTFzHGZ3BXEzAqAyLVll ULDbWYEeMBK1VXFoGCZqYZ6FImJaFEMdXoVuHgsvCWDuZHXjqq8DEJSmSLWrXRl2OvKhGGSpWQZcCIfi VOPaHSLzNRA9NUEaSFGsPJ2MLhKwBUUtHTIaIJwmMV OfAVWtws8DTLVmOVIkOUU8ZWDcDSFaTAItNOidIVAcXPVsVGQ7UNJoSFYjNW6TFaFzWTIpJFO5YmZqRQ MsJTGxao2MVZVrYUHiItvpFMObSEIrNEQxRKpnACVuCHFnNXF0BNNfZWZaPE2AKrGjCLWtVTMvCpOxQV ZlQDQons3JUKAaOWBwIBO6XcNbRCAfSJWtTJooEPGi TKK5UGskWJGsZHTcKD5IUdKgFGZfZDE6PEtgFJQqWHJoqr2GECRkUKBcDyUmQxWoQTOmQHKqNRgiKGEq GPE6NmZ8NZQeHQMhXT3GFgBiVNLlUTg6WQMlURSxHSAfpz6CVCRjBKQwGQX1YhFoMDMrNRNrLXjfCZQw MQJ8XpE2ZJHpQHHbDT8HKvOoIDMrEMz6EIVwZJFqQO Zifb7BUWFqPGFvXAx7QzVwYVQrLIIfTQmtNAYmHPM9CBQuZOSwEYMhRF3ZBrZpBKCnPdMjYIGjSVPuDA Mmzv4CGTBfQLYgKCP0BqHyIGXcNFWfBNppVLToIAYrUHb9BNQkHLTbLK6WUgKwBYMbCzZyPHStTIEwUG Yrtn7KMDDvVAHuMrTmQDNrIXKaSMOmDTf6qxFpaYEj HGd1UM7OH2HvytQjLfsGOq9Hh960UFY4YLKmWi4KF7nvPg9nLAHpQVGRTo7FUCv6G8CdDOLzABP3ChO8 DhNuTzR0KYY4Eme6VUQdZCN2DED+IXjpSfCdFLIgHktqMEioZWX1Hmm5FvIbFFY3LLRkWMotAQ9fQKAI Cj4+YRvomMRbeErpHWYXEqZiUSC4MNtyDXRDAp3U ID Date Data Source [id number] 09/04/2020 02:55:45 PM EST [facility] Name Value Range Interpretation Code Description Data Sanjuana rce(s) Supporting Document(s) Progress Notes [facility] NJXSZe8gXeHCZoBd50/XOSvrAUZdz2EuRNksOPw8PTyxKRLxM1PaMJJ1nA6eXBW8FMkQZsNyOvHxYoO5 lbm [file] VDejlOWhaZklMFQKEfBjUmk1MWbiDWDWZt7U ID Date Data Source [id number] 09/04/2020 01:50:00 PM EST [facility] Name Value Range Interpretation Code Description Data Sanjuana rce(s) Supporting Document(s) Glucose, Fingerstick 340 mg/dl 70-110 Above high normal [facility] The above 1 analytes were performed by [facility] [address]#: [id number],[place] [address] ID Date Data Source [id number] 09/04/2020 11:20:06 AM EST [facility] Name Value Range Interpretation Code Description Data Sanjuana rce(s) Supporting Document(s) Progress Notes [facility] OSLVWq6qIkLXHdEy17/IENarXAXid9RzJTjjJEl6VMnxJJZjQ3DfONU5eX3dEIU5LIeVLsHyDrHeBpE2 lb [file] XSANCj4+CNnatBTiqMyzTXSTZwL9Tmt4XCprUOMJYj9W ID Date Data Source [id number] 09/04/2020 08:45:13 AM EST [facility] Name Value Range Interpretation Code Description Data Sanjuana rce(s) Supporting Document(s) Nursing Note [facility] TVSSXy2gNpMIXgGn24/VJJdeVKGgs5PzEBsaAOx7BJexKOJzI7RtEBY8jM9vPPX3TDbDGtQoPnMnUfP3 lbm [file] AgICAgICAgICAgICAgICAgICAgICAgICAgICAgICAg ICAgICAgICAgICAgICAgICAgICAgICAgICAgICAgICAgICAgICAgICAgICAgICAgICAgICANCiAgICAg ICAgICAgICAgICAgICAgICAgICAgICAgICAgICAgICAgICAgICAgICAgICAgICAgICAgICAgICAgICAg ICAgICAgICAgICAgICAgICAgICAgICAgICAgICAgIC AgICANCiAgICAgICAgICAgICAgICAgICAgICAgICAgICAgICAgICAgICAgICAgICAgICAgICAgICAgIC AgICAgICAgICAgICAgICAgICAgICAgICAgICAgICAgICAgICAgICAgICAgICANCiAgICAgICAgICAgIC AgICAgICAgICAgICAgICAgICAgICAgICAgICAgICAg ICAgICAgICAgICAgICAgICAgICAgICAgICAgICAgICAgICAgICAgICAgICAgICAgICAgICAgICANCiAg ICAgICAgICAgICAgICAgICAgICAgICAgICAgICAgICAgICAgICAgICAgICAgICAgICAgICAgICAgICAg ICAgICAgICAgICAgICAgICAgICAgICAgICAgICAgIC AgICAgICANCiAgICAgICAgICAgICAgICAgICAgICAgICAgICAgICAgICAgICAgICAgICAgICAgICAgIC AgICAgICAgICAgICAgICAgICAgICAgICAgICAgICAgICAgICAgICAgICAgICAgICANCiAgICAgICAgIC AgICAgICAgICAgICAgICAgICAgICAgICAgICAgICAg ICAgICAgICAgICAgICAgICAgICAgICAgICAgICAgICAgICAgICAgICAgICAgICAgICAgICAgICAgICAN CiAgICAgICAgICAgICAgICAgICAgICAgICAgICAgICAgICAgICAgICAgICAgICAgICAgICAgICAgICAg ICAgICAgICAgICAgICAgICAgICAgICAgICAgICAgIC AgICAgICAgICANCiAgICAgICAgICAgICAgICAgICAgICAgICAgICAgICAgICAgICAgICAgICAgICAgIC AgICAgICAgICAgICAgICAgICAgICAgICAgICAgICAgICAgICAgICAgICAgICAgICAgICANCiAgICAgIC AgICAgICAgICAgICAgICAgICAgICAgICAgICAgICAg ICAgICAgICAgICAgICAgICAgICAgICAgICAgICAgICAgICAgICAgICAgICAgICAgICAgICAgICAgICAg ICANCjw/bQPmA2qsiWUnexP8N4cpUz4CQk7NXR4ae4UbNQQdTLjvrwNhZamFAjUhIPHoRokTOpg7RZvr HW7JnEFoF9BdJ4DdPRnmLB5JRPOwETVlkNIhSCOzEL TcZkM4WJMjHSnrFH5WsHYxHCkqKWBuXRCnLH3NNHKtY619xePsOO1UXt1JUaHtIF7win5JJiXgBLMpHh zKUtx1KZibYU7CxOOpaLCkCgRsIHUAQiOaO2oyg8VcQrJyCDZHKLopUM1Kl8RtuYRnTBn+Os8LUZ2hu8 XtTTxmKtUpRN3nxm5WIHrOVjKaI5XrsFztFC81abEt soqqCe04OZXuiLFCDKYoCGDSMRFuSYUgrRyaZo4fORSzYk6yAV1qIYYcEXF1OwLbBPMQBJ7BHNMpGKJw gWMcIVBjQBERDG0HJTooGCL1ViodffWqjTMoAQvjTA4BAIJtskAwDkZvBSJZNYu+Jo8UUS5xz7IiFYyr KOAcPC0sgv1UUVfTLfCaL4A0hBPhN2H3EIdrMk8CJC ZcPZItGfJyQBDJNQqyIG0GLS6xbiA2CS6EcVKyWXVeTEJztIEzIEz0S34dbSZtQFxeFH5ZWZA+Rosanne+Pg 4VTSHkEMTbAOPjPwVqEDIDAhZnN4StC9BFb8TdJ8AbTT69fJkrrrOfGEdyAZ4KAV4kTFWzWTVDBX0WiO GghQ1zpsRnCsHlUQFBJyKlP35vrFZtNEIpZUEuQHCy Gp1UMCOnF8YdndBnkRfsxrIvSBCcUZDPAP3MUBzmcmLpoWKuuIciVK04lPniUV7VCt5YBvSiQT3gju8E xGKjPd2OCPOyNI0IRONoWVQmIFFmDKG4RJIjHsStRFavMRAnPDTdFNN7IDQuMGLaDL0NFeMdRRLaLSg6 TsAxGREmSPUwsp3FMHHbXOSaROIhIzIiTVUiCLAfSC myZCLbBQKqLEH6GXIeBUSpUJ4MHbSdRIWxCTJfOMAlPSWvBPXdus4TDFFwFSRbSDBcAXKiSWXtRHEaFP juIZXqSXLuOmG1UGNcTUBbDY2PEfCuDPDqQYL1HwwrXDVhABKhhz8LLFPkSDCqOjm4PgXdZZKgUQWpDH nnQCAxZLEoHhOqQKDsIXJgUW2NMgChZTTaMJM1YApk EAHuYCJacg8TUHAeGGFcUFL9TBDuCPZaWRYuSBwwRXMqEXL7ZGGjWGRsWIThZL5NBtKpMITmQAP1YWXm UQIiXNLlym7WYJHcILQpWyo4YKUhWGVlAGHmBGhzCEWlMBM1OzW1EXXoVEGgMX1VNmHbSWWcYPumXURz XEDdUAFxxu8CODJdOQVmQSS7VrGmEKPgCRLvRUtnXQ EaTYT0CGo0TAXlKASlXX2TXnNrYLEgTTx2DGUjWRHtYASpyl3FYPYmHAQkJKP8ThDtGEBhHUWrMLrlOI IoHOVjXAG6IMLyMNFzFZ1XGfAgEOToHkI4FxVpDSCfHYGlrn4PTRGuYRWuDUiyTsPbKUMcWYXtXTb1al FrsLLdCQq9VU5WQ6BsqpQvGrSQHr3Og251VAJ1SVCa Ug0QT7izHi6nVCVmCIXEYc9DEEg8Z4IvCky5CUHnZAM7RBWkGMF2OOI6DBWwIZWaORc5AHY+FLf6JIXo FHh5U6DaCoQ2VyOoEXS7DYMwFhXfCzSoVQSiKz0aFFJFKr3+OKvfzJQmwSirQPCGWuZyHEX1OTdgKUEQ Rg0K ID Date Data Source [id number] 09/04/2020 08:42:23 AM EST [facility] Name Value Range Interpretation Code Description Data Sanjuana rce(s) Supporting Document(s) Progress Notes [facility] OPPKDg3dJuCAWhBt63/OMRyzNNFvt5PjMOlcHXb4BVlpRXGmS0CjHCQ3uE1iHRQ5XMjQZqRsZkOpJrY8 lbm [file] ZYXmKMFrUkOgAQQdP3G9AsOvTQ7WAu2QGuU3YMI6yQJuUh5QGmG2KkNQOeGnBZ3TGTh= ID Date Data Source [id number] 09/04/2020 08:35:00 AM EST [facility] Name Value Range Interpretation Code Description Data Sanjuana rce(s) Supporting Document(s) Glucose, Fingerstick 351 mg/dl 70-110 Above high normal [facility] The above 1 analytes were performed by [facility] [id number] [place] [address],[facility]#: [id number],[place] [address] ID Date Data Source [id number] 09/04/2020 07:14:35 AM EST [facility] Name Value Range Interpretation Code Description Data Sanjuana rce(s) Supporting Document(s) Nursing Note [facility] MGYLMq9gSnEJCtKw71/XGWsiZFKao9DhSRtzZLn3YJcuDJSpS4DfKUG0uM4tHDA5VMgKVzFsLiMcQlZ1 lbm [file] 0gDQo+Da4Xw1GspgQ5wlZeIOquDbRiXN2KEIWNF2PMKu== ID Date Data Source [id number] 09/04/2020 06:09:00 AM EST [facility] Name Value Range Interpretation Code Description Data Sanjuana rce(s) Supporting Document(s) C-Reactive Protein (Non-Cardiac) 44.70 mg/L 0.00-3.[address] [facility] The above 1 analytes were performed by [facility] [id number] [id number],[place] [address] ID Date Data Source [id number] 09/04/2020 03:57:10 AM [facility] Name Value Range Interpretation Code Description Data Sanjuana rce(s) Supporting Document(s) Care Plan [facility] XJAZCs1pWkIGPxEp26/YFThuEEHsr8RbZDinIDy2CIloAEXjJ8OiWMW4oP3nCMV1UOoTPeFwVpOrYoW2 lbm [file] XDJgAWN9SV3wZOIOLj5+DOzfwENrxKuiAMGADuF2PPk7ZIyfZHIVGh3P ID Date Data Source [id number] 09/03/2020 09:52:00 PM EST [facility] Name Value Range Interpretation Code Description Data Sanjuana rce(s) Supporting Document(s) Glucose, Fingerstick 250 mg/dl 70-110 Above high normal [facility] The above 1 analytes were performed by [facility] [id number] [place] [address]#: [id number],[place] [address] ID Date Data Source [id number] 09/03/2020 06:31:55 PM EST [facility] Name Value Range Interpretation Code Description Data Sanjuana rce(s) Supporting Document(s) Nursing Note [facility] IAKGQu4xTfAICnDv01/GOOfoEPYfb1YvSWqrSMr1GSbnDTXwE6MpPMJ7nX2nKFG4UElVJtDrOcWiBoE5 lbm BaJztRCbTmAQIqWbyTVyKlAZlcDesviPSyFY5ScAR5GFQeH57uDBNsRZWuD2KlPIWyWrG+Mu6EGCExwP DjUU0OUkxY8XpiWtqUCH4j1Z9uT9BlpxNC8D0xEhxjLHfMsXlWVXLGkn1DyXvRsUNvOlp/PrueWdvnZH ZsbKjC6cW+jkf879sAHZzs//3Uk6kwzKjN/+prXlp1 Donohue+/Win3IX7Gjl/FBc2SBEtq6+h/pqYzy/slkluM/qPmPCvPfQ6z6oCXxJIz1gtIdW3AJu1kw+MbeXb Uc8TlKnP3qoSzp3XWdtFodWorgunQLsDG3Og8T9uLmT0R9z8nDKP8QCV8prhiuEnhjT8/pZLR46OAKY5 iHv9g6td9TYzQ+DlA3bWi7wXbKuyRW8+2QCaS4qsQs x0VC0LS0TlyIHRpgaVu/uv9rsi3ms7mVNiFiomZOH6Wf9By8MZRcuMnRBWqwGlnMBh6n4qCvndDM5PzH FgPtEpLmaWjVylB9x4edl8/jBJNjN+QThc6Bc8iCTm20nANB9XpqlT5M1TcVS2rShGBe8iCGBPSNTb29 H5cyni14gu42nloEwOv3s1WUofX4N9tV+rgdq4uo99 tdhcT5TUSFjJylLr6HGhvVj/sC59+ftEzcLGNEfWgPAqacm4w7pypa71+etHrc/tT3+rwevtxa+wxjFA 8CXba4eAcHXctkbXPknd3O6qtdiBDo0Q4ipePkKqG+o+zZxUg74GIYlwUzqsZ7Id7aGf6dLeFU890prB oD9o/cI8jUYmu7LRA/Juliana+Fhvs/nEgcem5Hl+fPuq [file] Sw0PCrL0FOT1mIFpCe7KSwAtVzHDKpRmWI8CBGv= ID Date Data Source [id number] 09/03/2020 03:52:00 PM EST [facility] Name Value Range Interpretation Code Description Data Sanjuana rce(s) Supporting Document(s) Glucose, Fingerstick 251 mg/dl 70-110 Above high normal [facility] The above 1 analytes were performed by [facility] [id number] [place] [address]#: [id number],[place] [address] ID Date Data Source [id number] 09/03/2020 03:41:06 PM EST [facility] Name Value Range Interpretation Code Description Data Sanjuana rce(s) Supporting Document(s) Progress Notes [facility] LTSOAs7aFoVJXdRy94/JXVnaZLKix4DmSMyxFNx4POpsFMCaP4MhUUR1bW3gTIF6GAwDFwQrItHjJuK1 lbm [file] ICAgICAgICAgICAgICAgICAgICAgICAgICAgICAgIC EmCXNbPPAgPKYpQVYaGAVhNJHpRC4XENKrCYFxNIKqXYDqJNXmTHDlDRAlZFTdYMRqRFCjZUYwSSFtMG AgICAgICAgICAgICAgICAgICAgICAgICAgICAgICAgICAgICAgICAgICAgICAgICAgICAgICAgICAgIC MmNN6OPSUiIQQiKSCzKONtKNDoZNLlLDQvQMAqTNPh ICAgICAgICAgICAgICAgICAgICAgICAgICAgICAgICAgICAgICAgICAgICAgICAgICAgICAgICAgICAg CLJtUSXlVBGjKIJoGC7TWGSjRWAcVPEeXBKnVULxMFQwDUQxVIGpANXrGTWaMYQyOIKpBZHyZEVtAPKn ICAgICAgICAgICAgICAgICAgICAgICAgICAgICAgIC JqKJZaZNWzTUJqKAShECJiLBGhYSShYJ1RMUAbGYWgWSCjGDVbNPUcHYUcSTWqUUQbVIAlGYFmFDXzZF AgICAgICAgICAgICAgICAgICAgICAgICAgICAgICAgICAgICAgICAgICAgICAgICAgICAgICAgICAgIC ZdAECgFO7KSAPfIGRdHQTfAAKdXDRsGMJkOMAbMHSs ICAgICAgICAgICAgICAgICAgICAgICAgICAgICAgICAgICAgICAgICAgICAgICAgICAgICAgICAgICAg GJBuQBGvVNNoIHCyQEZdTU7TYJSrUYVfUVXdBSTqNZCdGKItPLAlDBPeCIMcEUOwYJCsJGJnJLQnTXEy ICAgICAgICAgICAgICAgICAgICAgICAgICAgICAgIC XtLBQnQALzUKYmWMOkTQCnFQDrTJQyLXUpSP2MKTYmMSSgBPNgIRWqEAKbGJSuROYdCYOoSIJrRTPhZH AgICAgICAgICAgICAgICAgICAgICAgICAgICAgICAgICAgICAgICAgICAgICAgICAgICAgICAgICAgIC FyUCZjODFqYY5RWAAqKLBuYZHuKUKyXFDdNYGnGMBa ICAgICAgICAgICAgICAgICAgICAgICAgICAgICAgICAgICAgICAgICAgICAgICAgICAgICAgICAgICAg UFIiDZVeWQDoQQMxGRMkUKWxXH3IUCQkAZObMOTrWHTlZZAdQJXwQTJlDWMcNRGxLIOqDIIkIUVfXFRc ICAgICAgICAgICAgICAgICAgICAgICAgICAgICAgIC BaUWYsMFKbZDYoKJBcLUXjXJXaTWAyERSyIWRkRB0KDE26dPKzx9W3UPCtWM3xbcm/Ds7BAMpqcyNbaE KyGL0GUwKgOS6ips0TCmVgBY1zuh4AZYiJYuBfE6D4wNRkKMHcQMYOEuAtS96zTAjhCn01LCygNBOfCq AlVGn7Jn2YCbXdQ0veMGOnAfI7EROmQfBfEPpvHH8P d3DviDSfJVf+Fe5QXE2he4KbWOfoDpFkFP4buq4HQQyCLuYqK9OmvnQ3OLS2PNWmQg2SPODsHGAiqNRk SIBhKLPINlVsK2IqmQ67CKEVZy8+XItavdUsRlnOGbF9FTWwo2QaGAk0ZD7PWGWnJRx2mLUcEMBfE6Kc r8JtJu82CUNeJqxsRXvcFJGrUUSjgkNjtaFiXZIQTF hfQWTnQt4wLJ7jIJOqUQElEgXzISTATA4MIEMjLQJooKNwXZZkQJIDEO4ZDBteTEN5YaswujLgwSZpJT vwTQ4JOIKgfbMhOTrjVRLAHJy+Mi6CTI0af6OqHKrwFOWiCE8tko7CBLcYHkUlN8P0oZEdO9A5XZgzDf 6NCPHiFFTtWKZiDJISQKdfOK6BPZ6dazE9JY7CpIHa HVIaRORbzFMeITu7Y03fcDRlTYaxTJ5PPCT+Rosanne+Zn2BRFArMWGpZMXxSeXtTKFOGyRnR5TwS5MPp6Ap A2FzCL45dQrxilVyLHorKB5PJV7jQTHsOXNYBS3SlGEnhW7fxcVoSxReERBOFuZhL45rbBQcAIQvVKM5 PJXrIa1OQCEdS1McisRbpWpekeKjQKHgFQAEWI3CFQ fdeuDuoUJwmTcuUT99lZlpZE4QNo0NXzWkHC7fam7GoRCaPg2FRKWdRN9HFFCeAGXrOMKqYSX5GJDxBi EyZManATEkQPBkXCW1AMEdMPPrPH6MIpXmHPMeKJU4MALuAKItDBSgnr9VAEQiUREtNcJ9CGQaHBFhCO RrFMzbHZClYAMuIRJ4IDNtLWCjAE9LEjSwSSLtLJXk DCNqGULrRMNzgb5GVJKbFXVxERLyAiHxHALkVDKuQSltARCaJAViUwG4RKOxJISkQR4OMqIdIXXqNZN7 IlFcRAHtUNPweu5NBLItPDCxPzk2LCZeGFKlPVZaKTavUTHzMLQsLlL0PJRvSAPcGX0JVoGqQTVqCAJ7 XKBuPHCkANJocl9YKOPiPQYtCHU9MZMaEKJpPIAlIH abZDXmVLP3LLP9RBXfJSBqGS1RGbBaSYUiFCNgAErmAEFlKOJgdr3RHVBlQRLcVNNnHcEqFWEsSTLsAF pwJZPyDBJ2RVD0AJIiIDCvFN8FLmDrAUJdOEpnRRUtDUSxKFPapl0GVCGaVSHuKwP0DwJqTXIjUYDcVL irMPIkXVI0EOD9VLPeOZZjOT0TWtKoFUdiRQBAKpc3 LAhpB8w7BRFuYZ3DP1Vch7VpWUwaZJOIVIfoFE4uzuRqPZNuPs4IX9zUOvf8MqKuMEDyKLd2AGVqKBCl OIL6HrV3RLRpIQY7EhN5Av2lESTvI3JsTUW3QfCeNVDiWhApUTLbIdFfLqMxCJC2UWxdGeRoXN2MXa1W RsJ3LJZ7oYUoWk3SUii1XX7KIRIJH2NIAr== ID Date Data Source [id number] 09/03/2020 02:01:43 PM EST [facility] Name Value Range Interpretation Code Description Data Sanjuana rce(s) Supporting Document(s) Progress Notes [facility] SLMFHk8fAoGAMzXe35/ACLcjYAEoa1KdZXaiJYx5BJwoXFXpX5HhEMW9dX7wYPH4GKqDCcBiUgVaVwK9 lbm [file] Mk2CLOKYK1HPIg== ID Date Data Source [id number] 09/03/2020 01:23:46 PM EST [facility] Name Value Range Interpretation Code Description Data Sanjuana rce(s) Supporting Document(s) Progress Notes [facility] EBLKKb9mWxVEVlXs12/PSWhjBDOyj0HxEDzcHUf9RMbiGNJyF8NnPIF9eO2zDJI4QAbHKvZaUkPdMhX8 lbm [file] [facility]+VAp1olx87gYyTA/y+OCaawgmxjUnTupK2B2tr+7J89vA+tD5ouCsn5mso+c33a/nsFwJv7WA/PYc1 [file] dsEtP3Ea6XUKCZH6ZZSe== ID Date Data Source [id number] 09/03/2020 12:44:00 PM EST [facility] Name Value Range Interpretation Code Description Data Sanjuana rce(s) Supporting Document(s) Glucose, Fingerstick 362 mg/dl 70-110 Above high normal [facility] The above 1 analytes were performed by [facility] [id number] [facility]#: [id number],[place] [address] ID Date Data Source [id number] 09/03/2020 12:32:11 PM EST [facility] Name Value Range Interpretation Code Description Data Sanjuana rce(s) Supporting Document(s) Progress Notes [facility] WJBKYj2mAyYWVoBr52/RJGemZGRur8IcPLroBYd9KYlqHQBcO8GwWEA4bU6wXVW7IPsYAwBdWmRxRyF4 lbm [file] ID Date Data Source [id number] 09/03/2020 08:37:36 AM EST [facility] Name Value Range Interpretation Code Description Data Sanjuana rce(s) Supporting Document(s) Progress Notes [facility] WGPYDb0fGzRDOzTa69/QJEpdMRPnt0CmLAmvREz5BGgzWJUjI1CfYJA0rT6qKOQ2XCgHIoHhDeAuJyN2 lbm [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/23CqBF2vtax0jxYRPhJOF8LTaZse1i9vQtvot/BvRC0+r2aj67uf1aKw9fw1yJ/DPMscSF [file] KASpGQT8ZkAxEQ7ZBa4QDgK8BUG7dEZeYg2ZKOW2UlWBPsQnLS8DOZg= ID Date Data Source [id number] 09/03/2020 07:59:58 AM EST [facility] Name Value Range Interpretation Code Description Data Sanjuana rce(s) Supporting Document(s) Progress Notes [facility] WPDMCf9gZkXPNtKh24/WLJefZBSja7EuGGyzUYu6SVxlBTYvZ4TgFYP2qN8lYXI1YRiRCwSrFhTzTzF1 lbm [file] ICAgICAgICAgICAgICAgICAgICAgICAgICAgICAgIC DcFXHuTCWcQLFrZEFeVJOjESYjLATpHHYoETGnFALpXRXoPSIhUGEoWHGbUOLiIQReOXXpTQBwOF0JMQ AgICAgICAgICAgICAgICAgICAgICAgICAgICAgICAgICAgICAgICAgICAgICAgICAgICAgICAgICAgIC AgICAgICAgICAgICAgICAgICAgICAgICAgICAgICAg XETfBKYvWI6YVFAnAGLdRVItMMWjOZLkOJDxGBWrPXWzFTCtJUTuFSNoEGLiUOOhVJIzNIOgBAOwPGWt TSYuMVEtYAFyEWNhMMWgGBPpSXOsNTOaNAVvQBJdQNYpAVKqIQQyIQUvWBVyMTCrLS1PDTBtHRKvBNRr ICAgICAgICAgICAgICAgICAgICAgICAgICAgICAgIC AgICAgICAgICAgICAgICAgICAgICAgICAgICAgICAgICAgICAgICAgICAgICAgICAgICAgICAgICAgIA 0KICAgICAgICAgICAgICAgICAgICAgICAgICAgICAgICAgICAgICAgICAgICAgICAgICAgICAgICAgIC AgICAgICAgICAgICAgICAgICAgICAgICAgICAgICAg YLUgUCFcVWPwYU3EQXMrBOYdHZGoJDNaKNPjRBUmONGmPRGmVSMzXJZbLQIuHXVnJQOvOGEkEFPmJTUm PNEmILGqDGKaCIZeNRYnPSJjJOQaEBZjYXUrGKRkKRUxLUFdSUDzSRCzRJLyPXQaSSEqDI2DCQObZACp ICAgICAgICAgICAgICAgICAgICAgICAgICAgICAgIC AgICAgICAgICAgICAgICAgICAgICAgICAgICAgICAgICAgICAgICAgICAgICAgICAgICAgICAgICAgIC XhKA5ZAUTtIRYjFFQmCOZvGTItYTOwEFUfFEFsANUlQREvVNOcNKGuWXIlKBBjLABuVCYyBUUiAHMvUT AgICAgICAgICAgICAgICAgICAgICAgICAgICAgICAg NRPsBLRzKGQsGKKiLV4CAAMeDZGqCGNbBUJdYVFvIPUeCARrILVoAGSyXPRpWQLoNEUgKMVaJVQwTVXb FDYbDEXeXGRjYLPmXBXsHCFsIYGfBNAuGOCeGYMfZKPnTLCaBONqXBOhLOVoGPVnBVBdRPDfBW0NWJ09 iULwe2I7ZKPxXZ4irqb/Lb5CPAgxzjAtsNApRM8DTt NqLH6dvz1WFlOqBO6qzi1SFCcGNaSvG0B9sSKkZZNrALUXErSyO84bYIttIi97YHdiPVZnOsQbHWn1Ct 5YZsIoY0rgRTAcYlY2KENwKjXuHCmiHR1Or4XxaCCzFEn+Oe4GVW6dp1JmRKyyVsKhLB3ijh0HKDjFYy IsL0WxrrR9UKH0MIEwAb3PVXZpSICneNJrVmUaENMN VuAdI7NitW53AHGIUu8+VHpcwqOcOmdCPnA6RPHmg9VtIDi9LB5HSNRvZTp8hMTpOZXxB4Wjw0UgZn78 NZCjZuycI5WaGJEcFYXrDdSkgZloSRAgCKQpXi8mAT4uDZKyDPS1HqY0GPHUVS1MAOAsHNNecXQiHIYt LVVHSO3TBKjhPVH8HiroueCcjQThABmkBV6ORMOvow QgMzYgMCBSDQo+Fi6IRY2cp2ExEKmnMONgSF0lga5ITQkANlSpK0I3pTSnI2L5BOjpPy2IETRxZTPdAg ZhNPPOYYkmKG2IFG2ohmR2XH9BrMDrLSNoREKafKBySBa6R65tlRPaRNmaIC9DLHL+Rosanne+Ws3GSMYoKC TpFGJeIaPuPRBYKtNsG8KrK0WXg7RuT8ZbBZ81aGdt naOmRHmeJB1YEL8bLNVzKPNMRH9ShNHxlX7hjiVvCvEkUJCFTlQtT53ktIEyDRVsGSL4JOEkSm0IDIMh Q6NzvcFnqEulrtHgXJAoDSSNJG6JADiqgqDswAOtmSqlCG73kKgmPD6IAf6NFuLnRW2ccx1NwQLsCm3A GZVdYB7ENSWiAMQjKVQvXDP3BFTsTtByYBggOKFyOC AuYMJ8CEWwMQGfWL1GVtXtMYVbZsm8OhKbFEKhGIDxyf5BBVKqFACzMQJ7OWWvQTMoOBUuRVffHNIxWB JnGGA0TMPcHYRvQW4RTzKnYDEcRFIhKFfePPXhDXTmxm3BHKXgPNPlIoG2DcKtYDEoWYGlUPecNXEnQP W9RmNzXNNoIIHhVO3GBmTyZMRwZTX9UWAeZZCtSMMv rp5DGZFwTUBfVGDeQhFvQJOeDMOzLEusEXQcZQH9HXq2IEQfRTQbMS0YWrHgFHPlGUY0BARmWJKnVCQa tl4FDQJnXPYiEHo7VJSeSBMbLWEgAHdlLCIpADJ1IvU9MCGrBSReVT3EVuVdJXNrKSe2EVFdPICnPSBi km6HCSBrRVMxQGq3GYPdIANdWWVvUDteJAKbUZZ0SS r9IGKaMPKyLT5EVuUwGQNgITxnAuWtUOXxIUWogm2FOKCgGSXuNTX4ZgClKOUjLTSlTHruHCIpHDVdJs Q1LCQuSCOaDP1SDsKzPVMnCvX0GLvaBUUyGJKqja4JSVEaPZCqBRR7TuIkALPrYRZzRMtxFUJvOKYlKx vzABTmLISdPH9ZUuCuPQBjFqF3IpCuECLtKKKbhs3O KUTlPPUmSoawHhBsJQHoMXZjXPfqMVUdSAKvBQh3UNCgMOVeOG5FJjEeRYYeQwDsEeIgOOWlRULxia8Q TPXwRKLfPJCnMnUjCUNkOKUtKDmaGXFeQFK6FwU2TVHdXGEqJP8GKjJoEANrTji0LQjvQFHyDNUyhy4F YZNqOTKgVOo9JqPoSYFiBIAcKKlqCLZzPJB4BWU6DK UcWXLlHL5OVfCrVCRjPasmWLTmATFhBKGjmn7WMJDeIKTsYOA0KpEpKGOzKMGoIVmoHOVeUXU1ZMM7LV KnOWRiXR4NRsJkGIUeMcDbCpnhYFHeVBEkny0JJPAtQHFfQGE5SiPpNEDeKNCxIWkaLQArDYNiYFH1ZX GzSETcCW2YXcWwZGHvBfK8TEWoVTXmQSHaip3GjTWd pXvqaa1VXDbBAh0LqIukTDD2RLthSb1piXGlHHSfGXPIAj1IbhQaITIdAHMHXGecSNJlBGBnDIH1XHQr RpqiLyB7PPXfFJQ6GPp6BXK6Q4SgEszuQwZ9AhIrLCiaZSOyCYVvHZRsEAHaMaqzPYfgSrzqHhHzEJU+ MG0fEVt+Mc7Ny1SpbqM1gsGtAWpuAWlwDN8HYXICE8FYKt== ID Date Data Source [id number] 09/03/2020 07:55:42 AM EST [facility] Name Value Range Interpretation Code Description Data Sanjuana rce(s) Supporting Document(s) Consults [facility] VZXHYr2aAxIRXmAi07/CJTpzCCSkm3CrJTsvSUg8NQioPVGkM4YtIJI4qW0vLHD8HDtUPfIjMeGhKmU1 lbm [file] ID Date Data Source [id number] 09/03/2020 07:36:00 AM [facility] Name Value Range Interpretation Code Description Data Sanjuana rce(s) Supporting Document(s) Glucose, Fingerstick 296 mg/dl 70-110 Above high normal [facility] The above 1 analytes were performed by [facility] [id number] [place] [address], ,[place] [address] ID Date Data Source [id number] 09/03/2020 05:55:00 AM [facility] Name Value Range Interpretation Code Description Data Sanjuana rce(s) Supporting Document(s) Blood Urea Nitrogen 19 mg/dl 7-18 Above high normal [facility] Creatinine 0.65 mg/dl 0.67-1.17 Below low normal [facility] N-Acetylcysteine (NAC) and Metamizole villanueva ve the potential to falselydepress Creatinine results. Baseline values before medication adminstration are recommended. Patients undergoing treatment with phenindione will have falselydepressed results. Patients on phenindione therapy should be tested with an alternativeCREA method.Toxic levels of acetaminophen may lead to falsely depressed results forpatient samples. Glomerular Filtration Rate >90.00 mL/min/1.73m2 [facility] GFR Reference Ranges:Normal Function or Mild [...] of Health and the National Kidney[employer]. The [place] method used in calculating this result is traceable to IDMS standards. Glucose 305 mg/dl 70-110 Above high normal [facility] Sulfasalazine has the potential to false ly depress Glucose results. Sulfapyridine has the potential to falsely elevate Glucose results. Baseline values before medication administration are recommended. Calcium 8.6 mg/dl 8.5-10.1 Normal (applies to non-numeric resul ts) [facility] Sodium 135 mEq/L 136-145 Below low normal [facility] Potassium 4.0 mEq/L 3.5-5.1 Normal (applies to non-numeric resul ts) [facility] Chloride 101.0 mEq/L 98.0-107.0 Normal (applies to non-numeric resu lts) [facility] Anion Gap 6.9 [facility] Carbon Dioxide 31.1 mMol/L 21.0-32.0 Normal (applies to non-numeric results) [facility] The above 10 analytes were performed by [facility] [id number], ,[place] [id number] ID Date Data Source [id number] 09/03/2020 05:55:00 AM EST [facility] Name Value Range Interpretation Code Description Data Sanjuana rce(s) Supporting Document(s) Total Bilirubin 0.40 mg/dl 0.20-1.00 Normal (applies to non-numeric results) [facility] The above 1 analytes were performed by [facility] [id number], ,[place] [address] ID Date Data Source [id number] 09/03/2020 05:38:00 AM EST [facility] Name Value Range Interpretation Code Description Data Sanjuana rce(s) Supporting Document(s) WBC 8.06 x1000/ul 4.80-10.00 Normal (applies to non-numeric re sults) [facility] RBC 3.69 x1Mil/ul 4.70-6.10 Below low normal [facility] Hemoglobin 9.1 g/dl 14.0-18.0 Below low normal [facility] Hematocrit 29.7 % 42.0-52.0 Below low normal [facility] MCV 80.5 fL 80.0-94.0 Normal (applies to non-numeric resul ts) [facility] MCH 24.7 pg 27.0-31.0 Below low normal [facility] MCHC 30.6 g/dl 32.2-37.0 Below low normal [facility] RDW 19.0 % 11.5-14.5 Above high normal [facility] Platelet Count 145 x1000/ul 130-400 Normal (applies to non-numeric results) [facility] MPV 10.3 fL 9.4-12.4 Normal (applies to non-numeric resul ts) [facility] Neutrophils 88.6 % 40.0-74.0 Above high normal [facility] Lymphocytes 6.0 % 19.0-48.0 Below low normal [facility] Monocytes 4.8 % 3.4-9.0 Normal (applies to non-numeric resul ts) [facility] Eosinophils 0.0 % 0.0-7.0 Normal (applies to non-numeric resu lts) [facility] Basophils 0.0 % 0.0-2.0 Normal (applies to non-numeric resul ts) [facility] Immature Granulocytes 0.6 % 0.0-0.5 Above high normal [facility] Nucleated RBCs 0.00 % 0.00-0.20 Normal (applies to non-numeric r esults) [facility] Abs. Neutrophils 7.14 x1000/ul 1.92-8.31 Normal (applies to non-numeric results) [facility] Abs. Lymphocyte 0.48 x1000/ul 1.20-3.70 Below low normal [facility] Abs. Monocytes 0.39 x1000/ul 0.14-0.97 Normal (applies to non-nu meric results) [facility] Abs. Eosinophils 0.00 x1000/ul 0.00-0.76 Normal (applie s to non-numeric results) [facility] Abs. Basophils 0.00 x1000/ul 0.00-0.22 Normal (applies to non-n umeric results) [facility] Abs. Immature Gran. 0.05 x1000/ul 0.00-0.02 Above high normal [facility] Abs. Nucleated RBCs 0.00 x1000/ul 0.00-0.02 Normal (appl ies to non-numeric results) [facility] The above 24 analytes were performed by [facility] [id number], ,[place] [address] ID Date Data Source [id number] 09/03/2020 04:06:50 AM EST [facility] Name Value Range Interpretation Code Description Data Sanjuana rce(s) Supporting Document(s) Nursing Note [facility] PSJPWh8iSaKXMwJa12/KIHlhVUWew2XfSWufARi1GYlgOCOgJ9FvQNI5uL8tMKR3CRvVQwVsZiWfIwP1 m [file] dvWHQ1SmVgKlPhGMSoPMBpJrMrJLNyYoLkCC7IZc7ZLgN0KIM0uMCzSm4AYoAzDmPDJgUdOW3MSNe= ID Date Data Source [id number] 09/02/2020 11:30:59 PM EST [facility] Name Value Range Interpretation Code Description Data Sanjuana rce(s) Supporting Document(s) Progress Notes [facility] OKVCNt0fVsLADtJm56/FRWitEEPjr4EhHBcyOLc1RParZIZtG7VvBYE4pJ9vPBI8TXoNGvHsLxQuPsI3 lbm [file] AgICAgICAgICAgICAgICAgICAgICAgICAgICAgICAg ZYTrJIXoYGJoRAGlMRRiGEJsFT9XLDMjRIHyPCCyXDHlZWEvRLEeLWHtCCXiSNZfISEqVCNdQUMnNUIa ICAgICAgICAgICAgICAgICAgICAgICAgICAgICAgICAgICAgICAgICAgICAgICAgICAgICAgICAgICAg WL7MPBWhNWXuXVRbMSIgNBQwIDUlVSCfKIDwLYHjPY AgICAgICAgICAgICAgICAgICAgICAgICAgICAgICAgICAgICAgICAgICAgICAgICAgICAgICAgICAgIC OtXOEpOHZfFXUsAI3TUICxYJApILBaQJXkUUDcZEKiYLIqVQKaWDHqWOUyVPIcIEVtHXDlEONfHLQsUS AgICAgICAgICAgICAgICAgICAgICAgICAgICAgICAg LHGuMGMeJRNfHLWbJNCcQOEfRZVrMQ3EWXXxFCZtGYYbJPNdFQMxTMTzPRFgKSQyHCRzFWRwFHBjUYVn ICAgICAgICAgICAgICAgICAgICAgICAgICAgICAgICAgICAgICAgICAgICAgICAgICAgICAgICAgICAg FYUbZV3BWGIiBNFaOKTfPYRfQTHbGNKoVJVrUTMwXI AgICAgICAgICAgICAgICAgICAgICAgICAgICAgICAgICAgICAgICAgICAgICAgICAgICAgICAgICAgIC MdZBHxBIGfGFPpASIlTO5IFVDvDJIrJDLmLKEwQWTzTWDyQCMbKLTmCVEnFXBbLBTtQERhBSNmDYRcNU AgICAgICAgICAgICAgICAgICAgICAgICAgICAgICAg VLXrNVAaGVBxFOCqJUXxYNTrAXCcIBBbUA2UTPVxVMTuQJUoGLAwZNKaWXYxHGWhWXGtDOFjMXZdCVBj ICAgICAgICAgICAgICAgICAgICAgICAgICAgICAgICAgICAgICAgICAgICAgICAgICAgICAgICAgICAg FQZaEFCvQJ1ITSQoWXBpUEQrGNDkGJUiLCLpDWTkYM AgICAgICAgICAgICAgICAgICAgICAgICAgICAgICAgICAgICAgICAgICAgICAgICAgICAgICAgICAgIC YiPBUgTTMmSOTuDDUsNXLdJV7TQZZaFHFkLMUlDCLhINRmDEShYNTiIUBwZBNpFYLiRZUdWBLlIMCtUU AgICAgICAgICAgICAgICAgICAgICAgICAgICAgICAg TSYyOGWjMWTcZDRvBOImOHKdQGAhICZwXDKsZF0CXY17zIUud8W7KQYsIX6tceh/Ep3QADlqraHdnFGp GE5EJlQiUV9cgo4YOqOdIS8zlf1JWIzZIfLkW4Q9bHUfJPJyGRRLCjUhA43dHRkxOy31CFpyFQFyGeZc AZg1Ab1DNdMbZ6coISHcFzY3IPCvOfQqVXscBW7Md9 VudCAxDQo+Nj2GNI3fd9YiIHpfRwMtPT0wxm7DDEdOUhTmN9EsalK0QTI6NETjIc5ESUZmNWYmmXFwHI GhWUDDChUyW1QleJ20OAVBAq8+GCukqiIyZamEWmQ7NGObn0XxOJc9IA7VFIEpCJa9oNArQAAbM6Zkq1 JyDu15NAKrAtdvV9bczYpgtFIBxOKdvHD3fSKmQBDX WWnqHLndrs6KRAAUFGsaVQRqVn3aLe2vHCDvXEPgZbVsOIGJKM9EEWUbKEEsfLPpYSGhVOMTRM8RGYsl GDR9JcvaxyYzwQEcLBmnXU9IWTXlgdJjAFbuPNORBGr+Qt0FLV9jw4CwKXeaXMFnBF8ibc5HBEiFHaXb E1S0ySStR7T0XXkvPo6GJTUeZNGuERHrBNPPCSxhYQ 4UQL7vhtF0EC4PsCIiSCRvYVHzrMTdWOc1K04jfZHzEQdhTM8FFZC+Rosanne+Fm1PNMDyIOEmGFZfQaNfAK MKAsDtW0FrM2AJa2UyX3XnJA70yAblfpLcNFgjZD2ILB4mYMJsSYXBQI3ZhUFgtH6ujbKsAdLvDVQTPg OgS63glAGlLKUaXOE7CFQlXn1DIOHyF3BeniAkxPup nfYrSONjVVTUAH6VKXgrcuBsvRXtmUvrNA18eYfgCX4SRg2IDqJiUR2hbj6KzPVpQa9XYFMzCP4HMRNz WDKhTJPcKBV6OSEjZzGpLFqtXHKjEFJvIWI5SGAmECQhIO3XKeLxJZVfOIE3UQYqKMCtEWOywg3QEIWs KTZrZkS3UIVePDYsYSXbSWccEFSaQITyUXD7ZACqIC YgVB3FOvLtNXGnIQAlKGWnSQPbGNYkuk3NEVLxYAPbPRM4KtBoQGYgVFFlGJxoZHZsUOUpFCF7MGPeTD GrCF0NEtPcEOZsQGR1JRMmJUPcWWElkr3NVCBvZULxVsxrXPEtHBQgWNTrCErwPTOnBHCmLWC0VEZxLU IpBK4IXuJyIYCzLKTsOLOuANAvVTDzen3BSJZvQASf UHYtVTGlXAYhCDOwKGgyNBEbRZP2CQv7SLEiDSCeQN7LZgJfNKPsWPHrAEdwIZQvUFCgkv3GXXEoQNDt VHY2DaSgISMkMQGwEHtwEPNeLPD9TTN1SOXtQKFpGD0LGpCxKKDoKLd4GRTbXIRtIWWbpy2NNOOvOALr VxLsBsZfMNHbYCLqXHgbEZOnNHV3Njp0YHEgHTSgFN 1UOgOjAFysFZZPRcv4KLecF0x5FKYhJV5TN8Hei7GrHGxbXFXKSDkoRW3fpuUjRMUkVi4OU2eHGwmjCJ XiTERdTLG2LMkbKQdyXwBzHRU6GKL9DFikMUKqYL6vFTG8RDZjDCQuXUy2JZS0XQFaVQXxZkf1VEHlWD H8QxWsWrZmRH8QBj4AMwE4SZY6hQQfIv4XZdpxSg3OSCSRO2NAZq== ID Date Data Source [id number] 09/02/2020 11:18:00 PM EST [facility] Name Value Range Interpretation Code Description Data Sanjuana rce(s) Supporting Document(s) Vancomycin Trough 18.5 ug/ml 10.0-20.0 Normal (applies to non- numeric results) [facility] In cases of complicated infection, such as bacteremia, osteomyelitis,meningitis, endocarditis, and hospital-acquired pneumonia caused by S.aureus, trough concentrations of 15-20 ug/mL are recommended to improvepenetration, increase the probability of obtaining optimal target serumconcentrations and improve clinical outcomes.The above 1 analytes were performed by [facility]'s [id number], ,[place] [address] ID Date Data Source [id number] 09/02/2020 08:35:54 PM EST [facility] Name Value Range Interpretation Code Description Data Sanjuana rce(s) Supporting Document(s) Nursing Note [facility] MTPIQc1wUyNROySa40/ENShbAAHal6ImORduWCk7JRprSSNaC4DuCXO8yH4xBMF4YGsWVzDnKwShRpA0 m [file] powell+U6+/9N+/J/2y3+y9n4dvjmzZ6np8hb95gyaRk0w/ExNydtiwTo2GURtKbCgdh6FmbitjsWbj1cfAh ZTubqvWJ/hlKWkOfkCzpV58n+VWnh9S5W7R/jujw0q Pm32dVwi7lieyYlWdpvr806liz8XzEv07j9n9eFtRW7p9XH3sK3TltjagPf+FE0/1ybi7d15zIMN05NB /ieEQikUQ0d5GIbVJvi1XvAkgM9WjTwoQyuiPVDm+9iswIyFzuuJrBFkYrm6hk5RePBux4YUoa8IqkwD Nuo+x4XUuUIzAh7v8HDTmHk8V0Zqhv4Ir0L4/SxqrX 2NeNgL/Y7OR1HHhSYaV4R63ru6p8x4bjf84L6heQTkl7Bz2cM0kdjy+J2KzR1zmE81zpGJ+D6E3l54dK b2atBZsiaw7ih5M4eGa6iZV343TgzEh28LVGEgAC4696e/uyhFqad7AfgZ9l1wCqK29oGUq366Nsl49I i/BNnVjuAoKBHQ2ZPiFl8Z+DGMk1/BD2g6/C+DGtjb Nat0pjUIAkrl5kr6cKg3xKvug/rAsQL8VJsLT2ffigFr8Xg+bY8CXhcSz7zdPlTOUK6xc//O5wrMr+Moisés [file] AvRjAgOCAwIFINCiAgICAvRjEgMTEgMCBSDQogICAg U9EsGBO3BFBzCf0JOUKlVQ5TNvQnCYUjMDZ+Nd5XKAIdHC3ccwMepKH9EVW+Gg8TMIAdYGw5D7C1ZXKy LYz1I5OVW6FQNZDbSQkgELpeHASrCJu1Y5R9HXZiZ1LVK6Xhmbukxs3+IA7KA10ULOJfYPx0I0V3uVGv O0T9bKdJuGM4VP3VQK4KcPk6hNFiuO6+QK9GD6BKJk UgQTo5M4G5vJEwW2K3kOkSaPM8SF8XIR0GiOAgGSAhmfAxMw7lT1IKWPvFUnFYYAL6CC2VoBClPR4UoX BKD6LhyJKaOu7aNZelmTUffJ1rSo8vNPlkGD7IUdYAXEtEIBC9HA4UzNYeBZ4GrBTPQ6HuqJFdKw8qTY lnaHRlbj4+SR5OJKNtMg0DBj5+DQplbmRvYmoNCjIx ZDCke2DeJBu2FX9QDE5dyBgoBOS7Cx8IfRO7wEAmK9lNPI7OuSDsV08wsNZlHCAtWg7SRvH3giDujN6K PE96zHDir7A4CJLoA8ucHQzph05kMYccNGvJWD2lXUQJXBzyVTouQWX3VnDyatooDOGvGc8JGoEyNMg4 oY9zgVW0XGT8PrgpwNEcIJkkYxDpBfLpNhB3dQqvnb h6EWrdHK1gXIsivjsxXMUhXle+NQfuRBMhCHDmMwgGNFLrbM8hbtB4ycNgEWkdqBVrXy4wl7v5LrmcCn 5eYg7kCFs2TlXzZwOsGDEyGp0mcG86STryjrTiQi9MXqPbABD9V9GhSdyXMUX+BKpzIHbmrKw8gOJaZE BdQj5VUBCyJQAcDVZlMXAlKPUiJIFuXIWsKRBpQAVe ICAgICAgICAgICAgICAgICAgICAgICAgICAgICAgICAgICAgICAgICAgICAgICAgICAgICAgICAgICAg SVPnFWCcUSTdNPMkPM9YVJHqDIDjOAEyOZUxEHEoBBMjSPGwJNIeTSFeLNJmTXBjWFEdMHHaZZOoTGOw ICAgICAgICAgICAgICAgICAgICAgICAgICAgICAgIC MxIEXvGXNoTIWyGNXcXBBpGTCcIKQcGV5DJHUgQRVfXBLlJZSfGEAwUWCmGKXuGFLoUVSwLZTdPSPrNY AgICAgICAgICAgICAgICAgICAgICAgICAgICAgICAgICAgICAgICAgICAgICAgICAgICAgICAgICAgIC QbFMZfAB4VTHRbZLJyPCJnVIPzNCHaIVPlOIAyLHYi ICAgICAgICAgICAgICAgICAgICAgICAgICAgICAgICAgICAgICAgICAgICAgICAgICAgICAgICAgICAg IPJsFBOfEYBjRFNiDSMhJG2SORVkZHPqOYZiUEHiQMCyWBWnPHEuKTXlSCNmEPOzULQvHQRzAGTiZYDz ICAgICAgICAgICAgICAgICAgICAgICAgICAgICAgIC FyGDYiDAVvSJVxKPNrGVIgCREgPPItZYAyXE9TYLArVDKzSEXyBMYcBOIrIOWlDEFiHYTmCLAfAIOtES AgICAgICAgICAgICAgICAgICAgICAgICAgICAgICAgICAgICAgICAgICAgICAgICAgICAgICAgICAgIC HdWDBgXOSoBB9TBGUmBFCvVYQvGBYzLSJeDPTjKELp ICAgICAgICAgICAgICAgICAgICAgICAgICAgICAgICAgICAgICAgICAgICAgICAgICAgICAgICAgICAg HWWiOWMpOMDlYBJsTQLlWYNxMP3RCYWpXEDdQDNiKUAqCSFtYDPjQUZyFFWvAUNvOMGrQOLkRWJdCCRs ICAgICAgICAgICAgICAgICAgICAgICAgICAgICAgIC JqZLQfKAJqUXAoYIAlHOAkKIBcQRRhNWCbNBAsDQ3TSLMzSUPfKMGtISNkCRRkRWKfUQTeRFNeBBKpLF AgICAgICAgICAgICAgICAgICAgICAgICAgICAgICAgICAgICAgICAgICAgICAgICAgICAgICAgICAgIC PiVLCyIMMsVOHwHC2VUYVlMSHnMWAbQIXhAGLwPWWs ICAgICAgICAgICAgICAgICAgICAgICAgICAgICAgICAgICAgICAgICAgICAgICAgICAgICAgICAgICAg RHIwBJGtDXMbJZMjSQLsPBNnFZEmGY8QKY61dGHjo2Z9KKGhLM0mylu/Qp8JSJkchdSbuWFlXH5EMiVf LK4dii8LVbXeLM6vqh9ZTWqAZbEfJ0Y0oFBzLCZsAU ALAnFbD09bWWnyFi05ALdkAGMaYvFjHGc6Dv0BPbPrK0nuQLRtBdN8KYFsMcJoVDdmLP9Xu0OwkYJySZ o+Fc1BAJ8rq2DwIGkrDvVqKU5hmc6XAByWJrIfD2HdbmH0FNKbUUNoZg3XAOElWJChlMYjFfLhXLTJPn WmZ5BvyL13IPBHTs1+CSikqdLiAgkBFeAwXZBcj8Hw XMv1BV3IYZFuJKr9xOHdRzPbw2agVnMSl2YhSRW4EGmrkVo4NZQxR1gbyrxlUl4xCPFrSa5vLs9bORTj MCN9BiXjFQKCUO1MBBEdKPNizPJyIWIjQQTSKP6MYReeZTW2RgwvdfXvfZVwEOnbXR2WCXSubiQcSaWe MCBSDQo+Xg4LFV1xy8AtXGgmIZKqDK7tbj8UXSmJZl FtJ0N5rXTiL8T4BYsdPh4FHPOmGOAqCrYiIPCSTMnpBT7XFN9ohvT0ZR3RxPLhEOEwPYKlyZJgQSz8A8 6psRMuJUqcIQ3QYRM+Rosanne+Dc7KMTLiTYUoGJPaDpSlCXFLLvTtM8QfH9IHq9QfP7YgWG83zGmoybVoSE olJB9TRC8iWHYkZHJKVA8SnXMxoY4zsjBkSeLnQBAV PhEcB05egGEdIYVePWNeWDRyKh8QOZNnQ2GtohExcXpwxlRvOPSzNODGUE2RDMjlqbUzqTQdnSutGG20 nGtjEC2NAh4NNyUcFX4tkp0YuSTqVo8YLDFuRV7VUZLwMFRnCLGkUCI6ODMoIiTyURjbECNlVVAiKHH6 YNWcHNVfZA2EXmRfIOYtZGu6KAYuZJLgEFXwoq9QVA EbUGQsPGCpMeYcTDEnAZInYYqlIDGzWZTnWZC0QUHeHVOrYX1UCsDzGSFeGXTxQkJcULRoXELdhv0JIB TaDCVfSEAkYFDiUSLxVLXxRZyeFZPxRVKzAxo6GGGcTTWlOY0URuRwETYcJDP1EZovOHCxTMXrtu2XJZ XkPCYfAhr4AiDwVFYgUGUjPVshAULuVUVaVvDbVMJu AAJzID0EUdQoKJYdJCZ0WrckNZWuQJOqny6EEYNnBEYgXGPfHPSmKWNpBJXqLQhnHZUgIII5PEGnDHGr TLQeWS7OPmJaQNFqKXA5DuOvZQUdEEUlef0RKCOiTVStEtl7MBAnKDYzLICdIZeeRBFqYKY8TvO1MQNi ZDGzTD9MGcOwXCJwNZeeSzReVNUuCBVqls1IBLKtXB LaSPBrGlZzWBOdJBSwXXaeXPUhXWE3UYj3XSXqCXGqUO4WRcItSQMrNXk8SrIsYOJzGPYpja2IMLIxOP XsGPM4ZaFsKQRhLVLaKApfKCOeIYVhUZN3LXKyZLKqAY3MKmRqKIXzVhG2COYwNTPcRRBuxb8HNNBxCD MjSHy5NVUwMTIqDYMoXXc1jzUseCRrVNa3PZ0FR3Ip dlHrPsOFAf4Zw297HCV1HTUmIl1CF1fiSc1pLFFaAKBHUc1SJOe9RyAeXmZ6DzAnRkq6QkT2MlUcKOc9 Ixa8TVT2AkUwGMH+QUv8OHNiVEHcDfMwPCFeRUeeZuErABxuIdcsYuoiEwHxTk1fXLMTVp4+DQpzdGFy wGfoLBEQFwRuQNq8YUgxNJLSRg2N ID Date Data Source [id number] 09/02/2020 07:19:00 PM [facility] Name Value Range Interpretation Code Description Data Sanjuana rce(s) Supporting Document(s) Glucose, Fingerstick 367 mg/dl 70-110 Above high normal [facility] The above 1 analytes were performed by [facility] [id number] [place] [address], ,[place] [address] ID Date Data Source [id number] 09/02/2020 04:26:00 PM [facility] Name Value Range Interpretation Code Description Data Sanjuana rce(s) Supporting Document(s) Glucose, Fingerstick 297 mg/dl 70-110 Above high normal [facility] The above 1 analytes were performed by [facility] [id number] [place] [address], ,[place] [address] ID Date Data Source [id number] 09/02/2020 02:20:21 PM [facility] Name Value Range Interpretation Code Description Data Sanjuana rce(s) Supporting Document(s) Progress Notes [facility] HQOWCf7oGvZZTySc50/ULSapHADns4IuBHckPLb1KRkoRVZpS7VjFVI0iT3qQKM6JYkNHoUaVdFcXoZ6 [facility] [file] LTW2AbN3Saa8L7J0DBBoLEW+BO9fXWr+Dx5Ut4WauwW2adMeCOjyMuYwEs1FEZYOL3PBHo== ID Date Data Source [id number] 09/02/2020 02:01:13 PM EST [facility] Name Value Range Interpretation Code Description Data Sanjuana rce(s) Supporting Document(s) Care Plan [facility] QWGLQd0yWyMVOlFx90/EHDgeNQZiw4QhMDztNIo9LSqjOQIcC3MmZHY4kN7rPUH6PApJHrWnAaUzViZ2 lbm [file] EB6ZWz5QCeN5QGD4mZRhDz7QRfR2ZMNMLvBhKA9EKXy= ID Date Data Source [id number] 09/02/2020 01:49:18 PM EST [facility] Name Value Range Interpretation Code Description Data Sanjuana rce(s) Supporting Document(s) Care Plan [facility] YAVNEm1xEcWBIhNt88/PTVadSSJmq8YeIDwiTBw0HHgwWLUtU6FzJEA9qR2kEYS7LFpMNzPhXqIvMcD8 lbm [file] RyDXJqNkq1LoB3LRs8OtR+ZW1rSPs+Fz5Pf7SlxpA0iqCwOKqzPkXlPY4YXWLKQ7CHAg== ID Date Data Source [id number] 09/02/2020 01:42:15 PM EST [facility] Name Value Range Interpretation Code Description Data Sanjuana rce(s) Supporting Document(s) Nursing Note [facility] GOFVPl3bYwXCKvPw23/GHZulEYIgx8KzANuqKSd0NHunYJLoU9VrXSF7qA0tXQF5VCgYStQkAuDkYsQ6 lbm [file] 9GDQo= ID Date Data Source [id number] 09/02/2020 01:24:00 [place] [address] RESPIRATORY CARE REPORT ==== ---------NAME------- NUMBER SEX AGE ADMIT DISC. XRAY# F/C DICKTZ DIANA Ross [id number] M 65 08/31/20 09/01/20 [id number] M4 I/P DATE OF : 1955 M/R# [id number] PH#: [id number] RM [id number] LOCATION: EMERGENCY DEPT EKG [id number] COMPL ETE:09/02/20 06:43 [place] [address] PHYSICIAN: VANESA Name Value Range Interpretation Code Description Data Sanjuana rce(s) Supporting Document(s) ID Date Data Source [id number] 09/02/2020 12:34:06 PM EST [facility] Name Value Range Interpretation Code Description Data Sanjuana rce(s) Supporting Document(s) Progress Notes [facility] SSAGHt2lWiMXBrIh68/FOCfuKPAmg3TfTQjtZGn4DCzeHRShM2LvARJ7gL2fIWF8WWqSDvWwQiJzWcY0 m [file] AgICAgICAgICAgICAgICAgICAgICAgICAgICAgICAgICAgICAgICAgICAgICAgICAgICAgICAgICAgIC AgICAgICANCiAgICAgICAgICAgICAgICAgICAgICAg ICAgICAgICAgICAgICAgICAgICAgICAgICAgICAgICAgICAgICAgICAgICAgICAgICAgICAgICAgICAg ICAgICAgICAgICAgICAgICANCiAgICAgICAgICAgICAgICAgICAgICAgICAgICAgICAgICAgICAgICAg ICAgICAgICAgICAgICAgICAgICAgICAgICAgICAgIC AgICAgICAgICAgICAgICAgICAgICAgICAgICANCiAgICAgICAgICAgICAgICAgICAgICAgICAgICAgIC AgICAgICAgICAgICAgICAgICAgICAgICAgICAgICAgICAgICAgICAgICAgICAgICAgICAgICAgICAgIC AgICAgICAgICANCiAgICAgICAgICAgICAgICAgICAg ICAgICAgICAgICAgICAgICAgICAgICAgICAgICAgICAgICAgICAgICAgICAgICAgICAgICAgICAgICAg ICAgICAgICAgICAgICAgICAgICANCiAgICAgICAgICAgICAgICAgICAgICAgICAgICAgICAgICAgICAg ICAgICAgICAgICAgICAgICAgICAgICAgICAgICAgIC AgICAgICAgICAgICAgICAgICAgICAgICAgICAgICANCiAgICAgICAgICAgICAgICAgICAgICAgICAgIC AgICAgICAgICAgICAgICAgICAgICAgICAgICAgICAgICAgICAgICAgICAgICAgICAgICAgICAgICAgIC AgICAgICAgICAgICANCiAgICAgICAgICAgICAgICAg ICAgICAgICAgICAgICAgICAgICAgICAgICAgICAgICAgICAgICAgICAgICAgICAgICAgICAgICAgICAg ICAgICAgICAgICAgICAgICAgICAgICANCiAgICAgICAgICAgICAgICAgICAgICAgICAgICAgICAgICAg ICAgICAgICAgICAgICAgICAgICAgICAgICAgICAgIC AgICAgICAgICAgICAgICAgICAgICAgICAgICAgICAgICANCiAgICAgICAgICAgICAgICAgICAgICAgIC AgICAgICAgICAgICAgICAgICAgICAgICAgICAgICAgICAgICAgICAgICAgICAgICAgICAgICAgICAgIC AgICAgICAgICAgICAgICANCjw/uDYwO7ttdJJktdJ0 W3bhOo4ARq0LDI4ao8AyJFMdXEfuguMaHspZSeDjEBMzHcgGYeq0MSveRG9IxHAwC7EzM1JxICzhNL9M VECtUMEpeXJwVYVuCGMcInL1WGLrDEowJP5BfBRgAKkxWVFzQKLtLvFeDKCmMCNfADYbJUYuUJCNJK1Z KbNuT1ValN86SGEFXw4+DQplbmRvYmoNCjQwIDAgb2 TbOTr5QF7CHGGwTrzlq9ZtYGOpIRIIHBrpBW9YMJU4VJCoJOIuXi8APBIkS284jqIyLU9TAw4QQxTrBJ 0bdc3NSCPkJUZdHtaTVli0DYigFG8OrTEaKXgIde6ipkFnwcBXj9CtcgZmmMMGLGcxzurfPhLCMF2fk0 BczdY9ONrfPSDrJLHpAx3wVr6pOOBbURJiKgIuPGGR MI6BAMJzWIFcgFMfXGDvIVZTKA0NLVwaUBR0WcaswwTzxAZdIRztXK3KQOZpzdSzXMLmVTDEUEb+Pg0K QQ9xx1DgGFh5QaHgPA2smc1IEJnCRdNwA0P0eGAuY1I4TYilKe5ASFKxMRIoHhmxEBKEBNeoCM0CCJ7l fsZ4AP5UfJRnSEGvFQTkeAPbTOu0X18hiYKbGLkvYV 0KICA+Rosanne+Fz7DXLSwWHKjXCXjEvTgTTPPQvOvB8MmU5DIa0IhZ4HrFB89lPdnidDeWRivFC8RDE3bVG WpZIWRNE5HfGMzbY2phgZ8WMNxXFRNWsRgY20ljBZqABKsWHH8YMLkPm7RQFOhA5HzleDvxQkubcUdCM GkKPZGQU4RLTjzrhEhlTQsjYcrUJ96cTsaEI5FPw2S HjLxMF9tvl0NwKHsYi0AYDX4Lc6FXHKgCSKrFYPiTBJ4GSTwZoSaKXqtJYUmPGYrSAJ4ULBzENIsAD3S WzPhAFFlVwQmIFInXYWaTSNusf3VYJYdGZYpTcQ4YFOmFKCiVTBaWOmkPUIsYHBvIKE4UUDaPMCbCS6C UdMdBUZyFVHoTiJlERTdZSIuat8RGOWnHRBiOwCtDD JzFNTvJBDxRNteABTcHAE4QtVcROMoLBKaJC5XMdIbFDWeINO1IRMkQYAlZOCmsr1OWTMoUMMqMlt5DV CjWCNlXNPnEGxlYWXjUFS2TFt3EIKtWMBdJG3OKaSrSWAmBPq7GlwlTMWfNFTuaq9LONQpAIZtJSerFw QaLPSaXFRsBOdlZKUbAKQ6YbnlXJOtVKLrFZ4HGtVs BPFyZAj0LPVqKMOpFMCrtf5IBUZzAGCiCWE1HgUdJWMvMPQxWWrwRGBxKUTcWDToJJKfSSNcGK0NPnIc QTGbRTUcLhioUSIsFKFqot3RARNnLPUgNUFkJeKhCMJiXMFiTLszVVFhUFZhMnxyOKPwXXYcAU3MVbSl NQRzQcCySAzmTOPsFAYhlt2QLQSlOYCnSEA2FeIgPE DpFQXvATbeNNAvSTJ2XFE9GIGlFOSyTQ1LWaHxGPRmEgH3NRQiQVFpYSIfsw8PWCQcFJUyOLKwQGMkAI PpLCEkBWnzYFDhYUC9SKA8EGLbTSYbLU1BZkAxSRVzFnC2QBKtFOViEJNyui9NJZVyEVAfPumaXuZeZS IwCWYaVAfwVUQbXOC3JHUyQWLkUBPaEG4QBdWkVQHn LlsdXVOnQMFxFJWwrf2WNGXuAKZrJFFpMlPzKLPfGROpRFapTHIiWHT6IXZvUZAjCKYgOH6USbJgXUNx Tez6LNUiIPLtZEVpro9ZJEZjGXNlQKAgGjWtQGDwQGYxBStvECIoPXL7KkF6YNSpGAGaTX2QQuDdRVQg Bhb4QjSrMUMeWLDard2MOHIwFDIbAWx6ErYlKURfII RiDExkERCgWNWmXDG4YNGwBBJwVO4ZJdWnDEQqEdAgRgNqEFCgAGPtsb4DRWIaMLGiPGaqFAYhPVFrZL YvFSyhLRYbPIIkBPbsELQxHFAjBH0NXxOeWOXtTwVfRBTePEAvXXMrzp8HYZLvSPJoDuV9NHGqIZZnWG TzSRq8ktRguVPaKCo4YW6TJ6TyppBuFHVKNq0Pl918 QXCgRULpJb6EV2duOo0wHGAtJYZDNp3YIGv8BZixDtJ8LVT3LIJuKJQvLPf3Emd5Z8FqG1LsRHNtHzX+ EQxtQTGtTWFiExv5UaZkKZD1Tnv0LXB8XWR2CjW2KRBzXV2cAZMFVd8+DQpzdGFydHhyZWYNCjMzNjQy ROujNWULSu2X ID Date Data Source [id number] 09/02/2020 12:06:00 PM EST [facility] Name Value Range Interpretation Code Description Data Sanjuana rce(s) Supporting Document(s) Glucose, Fingerstick 246 mg/dl 70-110 Above high normal [facility] The above 1 analytes were performed by [facility] [id number] [place] [address]#: [id number],[place] [address] ID Date Data Source [id number] 09/02/2020 10:17:22 AM EST [facility] Name Value Range Interpretation Code Description Data Sanjuana rce(s) Supporting Document(s) Progress Notes [facility] LLKXAv4cUtDUBhDm92/CQCjdBMMgr0UkKEexKLs6YSqkFQEjJ8DiJUG1rK7nLFP0NPjBZqQsBmJrOwC2 m QmRhmGAqWmHPDrBnuFOhYkMPvsYeeydJTkDL1KwWU6JLLzJ15tFVDkNKNbH8FyZRCcBkI+Cl1IFRDgwW TxYM1KPjhT9AmBq5b3FA3D7P/DGho3OUgOPMNyh9lgCmQaEYp59cHxAlnbsczs5R6983sKUAZkNtwcGK f2z7F0gUi5e6TaQZHsb1i2hVEZGI32a9aQCybYmr0E eTks24E0VvFZJjz9yINDm72M4ek8XMS0AK0mN+QDRmzshgE7R1ZvwW1PayhNQ0Hvr1r05nWIHlJ7ArmM 15I1qRmEfj+LXM0qdmQN6WeR0hO61Lwf+qxZtmdofmovHgzNoOjPeIC7jTYT3jPxXGUJKTy5MRXE2J8h 0ljSetkLlf1XQs2+YZG7cLLvChTiCKgRGg1xmDRQ1C cXjGwASAqIaT5ReoQCMNMqBBn8V2m/SE5irVpNuowIDMXOPHdDYSAOa5aCCpWPrnZyASPz1GTE7L9Ak0 6syrVOszqZI00USo7NO28bP6YIYdPmvI4vpKDn/SARqwxHg6jxvoVxiIcP2bWGtZ8tlmaI9K+pVmNxVK +g1HM7PS0O20gWqr6lN2680JfE5dxyhVxex8x42R2o [file] AgICAgICAgICAgICAgICAgICAgICAgICAgICAgICAgICAgICAgICAgICAgICAgICAgICAgICAgICAgIC AgICAgICAgICAgICAgICAgICAgICAgICAgICAgICANCiAgICAgICAgICAgICAgICAgICAgICAgICAgIC AgICAgICAgICAgICAgICAgICAgICAgICAgICAgICAg ICAgICAgICAgICAgICAgICAgICAgICAgICAgICAgICAgICAgICAgICANCiAgICAgICAgICAgICAgICAg ICAgICAgICAgICAgICAgICAgICAgICAgICAgICAgICAgICAgICAgICAgICAgICAgICAgICAgICAgICAg ICAgICAgICAgICAgICAgICAgICAgICANCiAgICAgIC AgICAgICAgICAgICAgICAgICAgICAgICAgICAgICAgICAgICAgICAgICAgICAgICAgICAgICAgICAgIC AgICAgICAgICAgICAgICAgICAgICAgICAgICAgICAgICANCiAgICAgICAgICAgICAgICAgICAgICAgIC AgICAgICAgICAgICAgICAgICAgICAgICAgICAgICAg ICAgICAgICAgICAgICAgICAgICAgICAgICAgICAgICAgICAgICAgICAgICANCiAgICAgICAgICAgICAg ICAgICAgICAgICAgICAgICAgICAgICAgICAgICAgICAgICAgICAgICAgICAgICAgICAgICAgICAgICAg ICAgICAgICAgICAgICAgICAgICAgICAgICANCiAgIC AgICAgICAgICAgICAgICAgICAgICAgICAgICAgICAgICAgICAgICAgICAgICAgICAgICAgICAgICAgIC AgICAgICAgICAgICAgICAgICAgICAgICAgICAgICAgICAgICANCiAgICAgICAgICAgICAgICAgICAgIC AgICAgICAgICAgICAgICAgICAgICAgICAgICAgICAg ICAgICAgICAgICAgICAgICAgICAgICAgICAgICAgICAgICAgICAgICAgICAgICANCiAgICAgICAgICAg ICAgICAgICAgICAgICAgICAgICAgICAgICAgICAgICAgICAgICAgICAgICAgICAgICAgICAgICAgICAg ICAgICAgICAgICAgICAgICAgICAgICAgICAgICANCi AgICAgICAgICAgICAgICAgICAgICAgICAgICAgICAgICAgICAgICAgICAgICAgICAgICAgICAgICAgIC AgICAgICAgICAgICAgICAgICAgICAgICAgICAgICAgICAgICAgICANCjw/sCDyQ4lvrRJbmaN4Y0rtGn 4UZb1XSC0ne2PgAVUdDDxfanPgNzsORcBqQADkKyzT Sda5MMlxOO1HhYWwO4LgX3CbWTgiNL1MSUEtVASetGWjAMEiFIOaDiD6GZHeDXilIX3ZxHUpRMbfWWPd VCUqFC8DLSRzT994diHfNR6GJn0DRsGcYX5yhx2HTDgsFPRpMxkLRvj9RMccQT2NgYWqpAMlQRPmAPWW YwWlD8ulg3KrTNmuROBOWOrfJC5Gy6LvdJSvHAm+Pg 2JRI0hk8EgABemJTHkJC8xus0AGVbUPfXxD9WzyFksKLWbk6swABGaJO9jaUIcILU8TD9cbrBaBwEmKG XdwT2wFDSYILlvDYKkHb3iYr1qIEYrZPQqAzW3SBJCMV8HHAQqMUJejQWyDACdTZHZEV1JZYsyERD1Pl hhlqEkyBSjAOemPK2IILWohlXfXFaaKGJXTZr+Pg0K TJ8ha8NfHUasEOZvBL3jtr4MTLyQKjGzW8B2aZLsJ7Q6LByhZg7NUHTdBPQiVWVpRPGEDPjdAY4YCX7b ovW7KG0KwJRtRXTaTUFesAGpTMo5L03wkTWjBXzlIZ2MYRZ+Rosanne+Vo5FTNPiXZRmZHCfBwKhXSJDYnKm S3HoR8ZEm5JsN4NyDQ03rImgzhDoKCamMT3QON3xZI QeRJIXZF8YpKKtyB5zziHlCnSfUPSPQwFfX47snLPeBVHaNXX6LQZvOz0MUPGgU6AqfwVtvIcnsqCdGR BqFBWLLO8STMsfumYnwELziBsgBN62zSlzIT0LRe8ZItRwTA1trt0GmFGvCn3JHVZfIB7TGHKfWCGeHV UyKUP9RWYpNhUoDQguAJHtFIMrMSZ7ZGZuOMYaND3V PcFaMDGmIBK3UcUqKRFcXJPfxy1JHSXgOVUzAuF3MJBuMWSeKSPqKLdkKIAyEJDrOCI9BSVxZDAzQD7M CxToPMXbCOGqCxQkGVFyFDXwko8NMOMuCLJxZUJ4ElHhWWUtEXJkQYutEUVlWHBaYLJ4DSFkLASqDI2P NrUmEBHbFIX0JiJxMNAtHNZcbc6CZECgDEGwNqqyED RfRAVtFNKxYUozFWMoLFIlSvx9ABMcUYZcQT1VOaIaNDWgZEU4EsZsEVOfQNBfyb5PZHPzWYEeFLU2MB IzFJJgJVSfMPrbJYBzOWI8BPG9ZGCtWBUjBX8BYhMhXGBlVIVlVTfsWYIlTIDhke2QTQBnTFKfYCQuKk IwFETlGEAvVIkqCWAnXRV7PAM8KHQwKLCcXA4MEqPs QZYhWTvuJuNqPIVrRULxuw3BGAReEZPqIqJbHyFcEDZcCYDlMVagQYWvOKH3MBxqUWSqFQBhGX3MAoWk HBewNAXVKtm2KGbnT9b3JBKjMV2IG2Nqu8SqIGapCCTMOHpxTV6rxoTwPDIzHk6NC2fYCno4XHb8YwVd EBCoPvU4RbX7Tbe4DMDdKJYtOdA7ZQPtMS5uQHntBB g5IFIhXBJnLmycTBQcALs9LQA9KLBeQRamVNO2DjTeJM7XAu5YUsY5XFL8zTOdRm2DAfefQd7EMFYGW4 YNCg== ID Date Data Source [id number] 09/02/2020 10:02:47 AM EST [facility] Name Value Range Interpretation Code Description Data Sanjuana rce(s) Supporting Document(s) Progress Notes [facility] VUUFYe8yHzILSnLu98/NHThsSYJrj0BnEDxuPJi2QZduNLMsT1OcHEH8oD4lQHG1MDeMBlOlXgXxBtH8 lbm TiOuoGGqUxBPBsIwiVOfXmDZegTdqttSBqXD3YqJZ2WZOrU02hFCVbNVZeW0UvZEJtLPR+Lc7GFLMsoU LcCL0YEmhQ1MfETlbaXH3E4d/zQgOY1L9q75rXeaZ4Cq9KzMbihIKYDig9UWN57zBAKdimbW1INakFA7 H78vwx3gy9Ddyst56MVfrej3n52d7fLiLzLMg4olFX Lfi8qV7nk8NG0NJmq0H+Inocencio+ydgVoKxWl9eBHQEwAB59Z4SLNhuIo8yZHfN1Bw9gIYY9nckPXZ23FUaJ [file] DQogICAgICAgICAgICAgICAgICAgICAgICAgICAgIC AgICAgICAgICAgICAgICAgICAgICAgICAgICAgICAgICAgICAgICAgICAgICAgICAgICAgICAgICAgIC AgICAgICAgICAgDQogICAgICAgICAgICAgICAgICAgICAgICAgICAgICAgICAgICAgICAgICAgICAgIC AgICAgICAgICAgICAgICAgICAgICAgICAgICAgICAg ICAgICAgICAgICAgICAgICAgICAgDQogICAgICAgICAgICAgICAgICAgICAgICAgICAgICAgICAgICAg ICAgICAgICAgICAgICAgICAgICAgICAgICAgICAgICAgICAgICAgICAgICAgICAgICAgICAgICAgICAg ICAgDQogICAgICAgICAgICAgICAgICAgICAgICAgIC AgICAgICAgICAgICAgICAgICAgICAgICAgICAgICAgICAgICAgICAgICAgICAgICAgICAgICAgICAgIC AgICAgICAgICAgICAgDQogICAgICAgICAgICAgICAgICAgICAgICAgICAgICAgICAgICAgICAgICAgIC AgICAgICAgICAgICAgICAgICAgICAgICAgICAgICAg ICAgICAgICAgICAgICAgICAgICAgICAgDQogICAgICAgICAgICAgICAgICAgICAgICAgICAgICAgICAg ICAgICAgICAgICAgICAgICAgICAgICAgICAgICAgICAgICAgICAgICAgICAgICAgICAgICAgICAgICAg ICAgICAgDQogICAgICAgICAgICAgICAgICAgICAgIC AgICAgICAgICAgICAgICAgICAgICAgICAgICAgICAgICAgICAgICAgICAgICAgICAgICAgICAgICAgIC AgICAgICAgICAgICAgICAgDQogICAgICAgICAgICAgICAgICAgICAgICAgICAgICAgICAgICAgICAgIC AgICAgICAgICAgICAgICAgICAgICAgICAgICAgICAg ICAgICAgICAgICAgICAgICAgICAgICAgICAgDQogICAgICAgICAgICAgICAgICAgICAgICAgICAgICAg ICAgICAgICAgICAgICAgICAgICAgICAgICAgICAgICAgICAgICAgICAgICAgICAgICAgICAgICAgICAg ICAgICAgICAgDQogICAgICAgICAgICAgICAgICAgIC AgICAgICAgICAgICAgICAgICAgICAgICAgICAgICAgICAgICAgICAgICAgICAgICAgICAgICAgICAgIC EpDXDzRYJyNKNiEVTgROLnKBVjSYi1S4nbOTLpIZLnLA5uOJw6Dq8+PZmHYgBtLEP6gkQxyU6WXR8ec0 OyBCaaKGKnb4ReEAr4NU7RWISeJVbgCL3KTIbddg6H MIFjRCTwxQIIy0whRjFnLHE6UKXqNyamGP4HLUUuV3qkbwGbFBSfUGPVYQ2PDqMyP0KvkV72REDMJs9+ VSmytjQpIrzCOjM3PWLvc2IjIYg2BW6YGQSlBnlpi6TuQLuzMJSLKHvyGW3OMHW3MYX3RIEcZi6AIMIg U000joWxKM6OFn1VZwMrOW2zed7BMPryDBCjUojIRd k5LGluXJ5QmDWsEDuNhw3dsbNtggRHu3KygrYfrZDIkDubEES2upssv1YwNTLTDVauMLFhRr1cKc9zKM ImZECqQyLzIUKGCG7KKTPkEQGkoMKsZFPgFFSQAT7XFIjuUPA5EgbyguJxpYBzVGmjLB2WGTClznKrJQ cgMCBSDQo+Wl8BHY0sx0ElUHxmVBEkVD7pmg2JSSyW EeYlX3R9iTCaK2E3TYlpYx3YNLEyGRSnKUBlBIQREVaeUS8VTW2ousC4ZJ8NiTQgCDZzJISboROpETz9 A52hiQAlVDffFD2CADI+Rosanne+Ik9EBYTnFFEvFDPqSkUvRWKIVfCnO7OvX0EOp6MmL8NxTK72oNequmXc REkqTM3XOF9tLZElZVRINH5WxGVfbX1xwjCwFnLtYN LLIsNmB41skXQzPYJyFZJ8VDTbHs6MCUCrS2VwhmYlhWvkhaKpMWNxJAHVLO1WCMjfzpLkaYSctMmnPB 70lEndNR5VYy3EAaJvDB9rug3RgHIzRh6PTGWwIT3HHVZyMGVdSXFdEWB5GGMgKhAxSKxxUPVoBYGoFH U0STTyVEOzSY4ILqOzYFVfIIL5VADvNNYyBZFnkv5V VODcRLVbLwX7NZNgCLYoZDNnKYfwXPZxTSMwIRC9DEWeOXDbGM2FSzPjFOKeBLEgDOEqVSEzOSJenr8N IZFiSRIrMGC3KwXrIJLgOWObUFxxRIKrOEKnYTH4FXJxPXNiNS3OZtKdATUrQHQ4TXXwUEWhBHFpgu7Y DWMdUAGhYkqyOUMbCVOuYHKkFEliNKAlUOIyDjD3XL NwMOWyPM0GUuAaVEEcXTA1FUHtMSAeOVScth9QIUXiLGKePNRuRXDdTZVeTOFyCLjvPUReDAW0QUp0GN GsFHOzBN6FIoIyXKVjGJLmUTrnPXXaSXCbvt1KUZTwXMEvZPY1DbFlVROnNKIsWMjuYAFeWDH2ZUF1PK XgJVKpZV9UYnIaYSCyZMgtYMWrEBMtNDIwas7CWYDt GOWlIiJvXhCxAKSwXFMpGLzxRKBmYST8UDKyVNYuBRSbEJ0BEcLzJZycIUVEYqq8ORrsP7w0NNSuJI4D U9Wti2DsKDcdTTSUIVfyJO6bzbViCPRmDc4HE8xSSigsKIm5Hpc0Hna5SOuvKyOsWoNeMLF0QOD4AzD7 BmIuTh9hNKDkECtjFHNoBrt1LTTxPTD6QGU8IlNeIk y6HBqqSqOwErAlDM7QNx2REkY2UWV0pUSzXg0IDmubWf6IHCGND7RVXm== ID Date Data Source [id number] 09/02/2020 09:57:10 AM EST [facility] Name Value Range Interpretation Code Description Data Sanjuana rce(s) Supporting Document(s) Progress Notes [facility] HCIDCf3gJtFRBjSc68/IJNudACZvq9YpYKtiQQs4SHzvSXSvN5WeLTJ7uU7iJER4EVwWImFjRmFaSaV9 lbm [file] HbdfDKQdKQTxIGH6LHL2BPJ+UC7fMLy+Lg3Vs6LxivS3yoOiBAzzQkG7GM4EONZIT4ZKAe== ID Date Data Source [id number] 09/02/2020 09:37:13 AM EST [facility] Name Value Range Interpretation Code Description Data Sanjuana rce(s) Supporting Document(s) Progress Notes [facility] DRIAOp8wZyNWFpIt33/TOJvdOAEoa8PjPSnkDVq2WYcsRQMqK9RuVDO8qK9aGMK6UTgXDsArOjSyIdD6 lbm [file] CiAgICAgICAgICAgICAgICAgICAgICAgICAgICAgIC AgICAgICAgICAgICAgICAgICAgICAgICAgICAgICAgICAgICAgICAgICAgICAgICAgICAgICAgICAgIC AgICAgICAgICANCiAgICAgICAgICAgICAgICAgICAgICAgICAgICAgICAgICAgICAgICAgICAgICAgIC AgICAgICAgICAgICAgICAgICAgICAgICAgICAgICAg ICAgICAgICAgICAgICAgICAgICANCiAgICAgICAgICAgICAgICAgICAgICAgICAgICAgICAgICAgICAg ICAgICAgICAgICAgICAgICAgICAgICAgICAgICAgICAgICAgICAgICAgICAgICAgICAgICAgICAgICAg ICANCiAgICAgICAgICAgICAgICAgICAgICAgICAgIC AgICAgICAgICAgICAgICAgICAgICAgICAgICAgICAgICAgICAgICAgICAgICAgICAgICAgICAgICAgIC AgICAgICAgICAgICANCiAgICAgICAgICAgICAgICAgICAgICAgICAgICAgICAgICAgICAgICAgICAgIC AgICAgICAgICAgICAgICAgICAgICAgICAgICAgICAg ICAgICAgICAgICAgICAgICAgICAgICANCiAgICAgICAgICAgICAgICAgICAgICAgICAgICAgICAgICAg ICAgICAgICAgICAgICAgICAgICAgICAgICAgICAgICAgICAgICAgICAgICAgICAgICAgICAgICAgICAg ICAgICANCiAgICAgICAgICAgICAgICAgICAgICAgIC AgICAgICAgICAgICAgICAgICAgICAgICAgICAgICAgICAgICAgICAgICAgICAgICAgICAgICAgICAgIC AgICAgICAgICAgICAgICANCiAgICAgICAgICAgICAgICAgICAgICAgICAgICAgICAgICAgICAgICAgIC AgICAgICAgICAgICAgICAgICAgICAgICAgICAgICAg ICAgICAgICAgICAgICAgICAgICAgICAgICANCiAgICAgICAgICAgICAgICAgICAgICAgICAgICAgICAg ICAgICAgICAgICAgICAgICAgICAgICAgICAgICAgICAgICAgICAgICAgICAgICAgICAgICAgICAgICAg ICAgICAgICANCiAgICAgICAgICAgICAgICAgICAgIC AgICAgICAgICAgICAgICAgICAgICAgICAgICAgICAgICAgICAgICAgICAgICAgICAgICAgICAgICAgIC AgICAgICAgICAgICAgICAgICANCjw/kLDyC4qwtYVqdjH3N1ceMc0VFy7RJV2df7JnCPIeMCwssaLkDh eTVmVzLQDtUkyJRtf5VJcnKU6WfMJyK3UcS1OrJXji ZK2MYRYaXCTrcLRsETWtLENrWfG3AADvMVrkJD0NmVQxLBleJLVoDFWoOV6HPFNpJ651hqLhTC2ZWy8L ZpRrIB8fba8DYfYvGXUtPmiUIhv3IYjcMR3CvNMyxOThOlXfAIGKWoIdP6eqj5WtSePmEFVEQGqmUK8F q7QyrSJiJKh+Dr1CJT0jm2MgZIynSuPaLO7gec6XYS jWZhCbF6FxbJweXFUbn3avFVDpVG8lpAIuVHV6OE1cqfpwB9ybqbNaLKLiMw9cYv9zUZQwJSH0DwF2CD IXNT9PRGHuTELtiCZlLOHbYHFZCS5QRLtfCDY1MbixvhTyoAAaUKfmUJ8PXRKmeqGkPfLbOEXJBVl+Pg 8KHZ2pf6JoTBidRxAtNF0dtv5LQZvGGlQsU8D2sMHq Q3Y2UFfgPd7KNDWzIXEqFtPuLJEBQTcwUP9SIL8wboI4SL9BsCQhSIQwQWUgxRAbVYz6W37jaKBxNFkc AM5ORLD+Rosanne+Md4SOVKsBTHlBVJxJrWvXUPDQySiK7MyA9XEn2FjA2RrBL59mKhhkcNnNIaiPW2RFV9b OUVgYCORAR6LoCFjmV3svaZeMXWcWSXLNyPgV91uhP HsRIYkCET3AUEhKp3ZGFXeI6EtzqTauGwpopJwGZEzDEMVIX2ALBffyvEudLEqnGfnTE95gFyuKH0ZKw 9KGeHlQV7jbq9QrQWkOp2ADERzAM8OBTNhAYYoUGMmJBT8OTRzAtEeLPmiINUdMYReBNT9GKQkKVAnMX 6CHyLsIXKfQoTsJkroTRAcZZUrfm9MWUOuFESzYCd0 ScLjVBQiJAQuZJfqKYCgWCJfYAL9OAUpOHUeAK3UMnMnGHUrJCSyQPdtUXKnJCXweu7NKKWoMHWhODF1 OCSjTZGbICDqDOvxZRPaMIFcYLY5XYRiOEZsAH5JPeYzRWMgZOG9PiNgEVIaTXUwhq5GQXGyZRSvQlwn OTUhOJKhLQNzHJoiUROqMXRuRvA3PXWcVCQaYR0LVw CaLRZjJVO8FuXoKDZpOHViwa3QXCPqWTIhLGK7VaGyWGCpGDSuIMmbNRKyIDP9HCpkOOPjHTWsGQ1NTv VwJHVbMZO7USejLHPlNDMrxw1GWUBsGVJtUdJwSaRuPMJcFTQyAGwdXWIqZJS3FdU9TAPzVOVlOD8XIr XyHVMdDPw0GIEoFWMsECDepn7NNOFkZKItMBZ0WfIq YUJsSNYuTDdxTHZqSLX1TOP5RUShFZXrVI3WEmZxDYNuLWl9ZKRwMHAkSDOewr2UFQChSOVtUKD5PmIe QEViNKQzANxaBLNcUBL1BVOfHRBqNAZfJJ0HTeHhOJEkWbYhPJLpTFWrRVRwgt2PZOOdRRWyWZG3MeQp QBSbMADhKGpmNLNbLYYiSMy1XPJvMPDdTF1HDiGbUB PiKkK1NVPrMQQzAQAkwg6RVDHiNZTtXzM2JsDhGKJsHQCdQXy8efUokGKqAWd9VD8KS6WobyEeYreODc 1Xl300ARQ5PXGxKj1JW1snTw4vUGCsLYZSQd3BSFu2K5GrSSLwGZi8MGOaFBIfNZA2C3KyZfIdHEtuHP JmZTQ+IYk4BvRiKUWgYVDjEkUzRKD0Jpa4XxH1ITR9 HDQwNtHvSP3mUWMERm8+WKswlTWunZloZRXEMgJdNcWjKZmfKENMYb1B ID Date Data Source [id number] 09/02/2020 09:34:27 AM EST [facility] Name Value Range Interpretation Code Description Data Sanjuana rce(s) Supporting Document(s) Progress Notes [facility] RFJBIq8kYtSQKwUh85/NXZtuWMYld2QfQQsnAAr8IVhnOWRgR4JrGMT0jY9bNXY8JPcQJbRgMmQyKxX2 lbm [file] upper sorbian/1KTAiqwAexn5S/t83y5hmaYNHz4OcbPw986sRFmep+C8XlqsZED73wJOSrjE4+wAUymLtpalgljsO [file] ANIMAL PHYSIOLOGY TEACHER+Bs0HVYNzTZs8U1G0ZFUzTZt5K7LAS8NNCEEoLVubBUjxEGFoNUs4C2S5ZBPnC5SSP3Boedinhb4+ TA5FK48HVIIsLEw8I1C3qDKzD1Y3iLxNiPR7BZ7DSB6UeUe8pAOitT0+UB7DE7KDKsZrWAg1K1E2zDTf I9K8cKjYuPA9JN0HIJ5DyZJvTNJvqqVbPu4bA7YLCH vRDmFBIIS5CG3ZcTDzUM9ViIDBA7VfsKEwBm6hRVlxcZQwhH1pPh9uSRkyUK4SGoPIOQtVGNM9QL2LfU QcNL8FeVHBN8OlsBBpGm3kRTywvUNjdb1+LE8KDTHrXl1RLr9+ZNlarlZvKewULfZ4PUGho2LwLUm8IW 2LGT5coVyhQAN7Pe6HsQZ8eUOhE4dMHC2SkKFkY84x uUSjHCPcFd7OGjN2adCjbW8QCX56uHIuw8W0VYOaA0qlLXymu91zILntWWwTLB2gBIHSXPyqVSguNPJ9 HeUziwchVWNfFu7LDjHqXKo3nJ4uvMK0NSD8IzrgcUBzMFqaIlQrJnLlYaS4zTdnyxk2UUhmLF4jOCtx czptZXRhLyc+RKycFVEeNMDvGzsJRTUnjR4rqwD8su WsUAfedQRqTx2xb5f5SpkzGp9vDm1mKSg1ExUyWmJhWSXeZx6edP19DBeffwJuQd1ACgEaAFN4N1YrZp pSREY+LHleQAlwxHn3xDMuWJOmVf1RFFZmTHOiOZUnVFHtNJJdCAScAUBpXLOsEEKfTBZwQAOzTAPvTI AgICAgICAgICAgICAgICAgICAgICAgICAgICAgICAg NZRzDFAaQIZcAIGfSFYlWTTbBJRaDNEyYVEbGEEkMT5BQRTfTOCyHOLtMXIiJFDlALCoMFHnRKLuCTIc ICAgICAgICAgICAgICAgICAgICAgICAgICAgICAgICAgICAgICAgICAgICAgICAgICAgICAgICAgICAg TEKpMCZmWTXxNCTdXZ7UAPXhODZnSSXuJHFtHDPwBX AgICAgICAgICAgICAgICAgICAgICAgICAgICAgICAgICAgICAgICAgICAgICAgICAgICAgICAgICAgIC QlUGRnRPCyTJPwKJZiXDAzAJZbIHJsQG5HMJQuGJOlOMNgCDLlSROsKPTnCZCiQDTfBNOmNZSxHKVdQJ AgICAgICAgICAgICAgICAgICAgICAgICAgICAgICAg VQClWRAjUJYlCPPpWYSxUDSyKYNqSOAoUBXlHUFdMUKpBN9KTEWvKORyAIIyRPGbFHJkGIAkEQBkMJJf ICAgICAgICAgICAgICAgICAgICAgICAgICAgICAgICAgICAgICAgICAgICAgICAgICAgICAgICAgICAg QROeYDExNLBkOXPyDNPgOT5DWUIyUYIyJOZnTUBxVC AgICAgICAgICAgICAgICAgICAgICAgICAgICAgICAgICAgICAgICAgICAgICAgICAgICAgICAgICAgIC PsICUaSRSwPYMmYOWaGEPwEVEeIYVrDQOaCK3DXRDuTERhAHDdFWSbHAKtGFWcGGFuJKUoESEmVHNqZK AgICAgICAgICAgICAgICAgICAgICAgICAgICAgICAg YYMoRZPwVIFnLUNqOUWkLZGoPAWwGPLsJCItHTKgDOZkCRFjVU6VJLQhEBLwZAEaGYAoJRBnVIDoSTAb ICAgICAgICAgICAgICAgICAgICAgICAgICAgICAgICAgICAgICAgICAgICAgICAgICAgICAgICAgICAg FRDsEPGlZQOgISNsGAAaCRMoYS5WYIQpTJQpNVPwGA AgICAgICAgICAgICAgICAgICAgICAgICAgICAgICAgICAgICAgICAgICAgICAgICAgICAgICAgICAgIC HhSYAnKEZhHEFeDXLqRZNtPBHaHIKvSOJoEMWmVS3NBPQyUKXyRXNfESJkHKQcHVGhJASaOWEjKTPgUB AgICAgICAgICAgICAgICAgICAgICAgICAgICAgICAg EVVvNGFiUGAxBBAeCHRlDUCiEQAmQOScKTWfCAMqSLLgDDSqKVOgNK1JJQ09oQUnm3S0WHZiML9ztwo/ Xj4JMOpfvcZutYZgCV1YZlUkWG6lrz3RQsFuEN9zah9KJQuQLrIkS6A9yLIyZWWcPSXFXyZfZ83wCQkt Va63ESheTADqSfPhCWj0Oh2YBvVhQ3vtXNPmJrS6GN AdTwCyZHzkCB2Nq3GmgUJnLAr+Ne7USP3lf9QrNOyxUBQzDL9rga5KVIlQGyCfW1BarnG0OXY9ZYQrFl 3SWQDsAYPueAGgXjKaDAGQBbOlS0NtnE84QPRVAu1+APfamsTpLsvXVuA6LOOui1TkFZx3HP0QFEAzSR g5dERqRRZfW3Dtw7EvYd87SWJdFpbnGJEtzwKYy3yv CYOnbXYnYnN5DkEqKpYkYRV2WISfJP5cREdaBI9IRYY0YSoyRIIlRZCyU8kTMqJlDXidCDHkcDunQP5U KsRrX9JeqiQbdKHzNTBpXXFLDb9+UVamdyDvZwyBFkQ3HJVkt8WuNYc7FK9YKEWeWGuaIU8UDMGucR7s KKhdBI3OAcLrXiPgWMVKByGpG32tbJOeQEi7Y8XfHr VkZGVkRmlsZXMgPDwvTmFtZXMgWyBdDQogID4+ID4+DJlpKO0RQRsldfZfZQHtAc2SLJMcHETxUO0iTL DzAOTpK2P9tTnmNNCIVrSfY6nhecfnKJ3pTJOqZ973qRkofzGhNNA6PPEgYo9SZDCdQIL6QMQfmKOqYr WwGQBDHSgvQA2QiEBxILI7dJ3cIUekTSGqCMVnW6kS DqOwwVipUP82hMxpdmLlmUJvQTq+Kw7GFE0fv5JqKPp4jbBeTSktWMH6SBvrZNVdURJpEGIhQZX3LPI4 EKWSHnTzXCGjLKBiZWuxBQIjOWIfhq0WGBEpMZLgKBF8XsAoGFQqWTFaDIcoUAEsQXJnNcNqEQLjWRTc WU0AYiDbJXGgGKCyJEclLYDlSTJyei1TIQWdHFWoVV G8UsSvWIFpXZLbPXunLDNrLLDbSLv2JXWuKCAtPL9VAcYlMNFtIYF4LaUsWTHmBPIdyc1HDWQeMSYwFv ZyJnQaBHXuUFIiICsxJXJuYYGlYdOiSFKrXECnUM2XLhWtYSGlSDDtSBTsLJJjXFIegn5IZAWxMCMyHT K5MoKfFKTwDGOnLMwyHIKyWFE2TWO6OOXtYQPgND5N InAhGQFwTMX1LVpoFVOrZIOrvw6UZANeFVHxGdIqBCNvJQEgWAYuPGlsMAMuKVE6AQKpFFWaXOShII6G IhCxSNRwYMo0KqCkCEZhJTDedu4RWPZlOLMbFfmoQBImVWZrSVLtPYkxMUMcUGH9DnKaQMStCNKaRA2U SlOdVPAeXMn0NRYvKKLlTOSxwa5VAYYlLKLsSCGzKL WzNSXtOQFlKTrvRZTzICQmEQzgEUNePOPqYN9KMzMbTJZyZqJhCFvkDIQfYSKtgr3QFXNjGPLbSYVxGJ UfMSCiJBLxFXcdAYNiYKWkKQKrHAGkDILvVD9PBnZbOZCeFwSdTNNhXVOeWEJedx2ASNCvHOTsLyO1Ni HiXOGmHEGxRJhiLIXpJDKjLOLsYYMfECVwQZ5CNfPj KXzrGMSXArj5WLxeB2j2NICfLG4YZ5Nhb4KvAxtxMBIEEPcuPI0feoQvIHRkLj9RH2tIMiykJoHbAEUt CMS2LER5IKPsBNWjPKM5E4V3FMWmTFL0SI3pRUCoOmP8SfZbYuw3GSU9WzFcZTM8XmZpTtD0IGNxOvQ1 PsYoFH7KMb5PHrT8VMZ2bZXuXr9LJyS5CBnHDiZlSD7OWHl= ID Date Data Source [id number] 09/02/2020 09:15:00 AM EST [facility] [address] [place] [address] PHONE: [phone] FAX: [phone] Name .................. : JAROD Ross Acct Number.................. : [id number] ROOM. ................. : CCU1 Number ................... : [id number] Stay type ............. : I/P Discharge Date......... ... : Admit Date ......... : 08/31/20 Admit Phys .................... : VANESA Date of ....... : 1955 Family Phys ................... : ADY Phone .................. : [phone] Age ................................ : 65 Film# .................. .:[id number] Sex ................................. : M Unsigned transcriptions are preliminary reports and do not represent a medical or legal document CHEST PORTABLE [id number] COMPLETE:09/01/20 11:10 SYLVIA 4435 (REASON FOR CHEST: [...] rce(s) Supporting Document(s) ID Date Data Source [id number] 09/02/2020 09:21:00 AM EST [facility] Name Value Range Interpretation Code Description Data Sanjuana rce(s) Supporting Document(s) pH, iSTAT 7.433 7.380-7.460 Normal (applies to non-numeric resu lts) [facility] PCO2, iSTAT 42.6 mm Hg 32.0-46.0 Normal (applies to non-numeric resu lts) [facility] PO2, iSTAT 100.0 mm Hg 74.0-108.0 Normal (applies to non-numeric resu lts) [facility] TCO2, iSTAT 30.0 mMol/L 22.0-30.0 Normal (applies to non-numeric res ults) [facility] HCO3, iSTAT 28.5 mMol/L 21.0-29.0 Normal (applies to non-numeric res ults) [facility] BE, iSTAT 4.0 mMol/L -2.0-2.0 Above high normal [facility] SO2, iSTAT 98.0 % 92.0-96.0 Above high normal [facility] Lactate, iSTAT <0.8 mMol/L 0.4-2.0 Normal (applies to non-numeric results) [facility] Site L Brachial [facility] Mode CPAP [facility] Delsys Ventilator [facility] h System PEEP 5 [facility] FiO2 40 [facility] VT(spont) 420 [facility] PS 8 [facility] RR(spont) 20 [facility] Employee # [id number] [facility] The above 17 analytes were performed by [facility] [id number] [facility], ,[place] [address] ID Date Data Source [id number] 09/02/2020 09:02:00 AM EST [facility] Name Value Range Interpretation Code Description Data Sanjuana rce(s) Supporting Document(s) C-Reactive Protein (Non-Cardiac) 210.00 mg/L 0.00-3.00 Above high no rmal [facility] The above 1 analytes were performed by [facility] [id number], ,[place] [id number] ID Date Data Source [id number] 09/02/2020 06:15:35 AM EST [facility] Name Value Range Interpretation Code Description Data Sanjuana rce(s) Supporting Document(s) Nursing Note [facility] DKCYAa7kJrXIKzLt66/GNYusIHVnh8LxPPryZEw8RPvtSUSaH0DwVXS3iU5hWHQ0QYuLUpSuBhPgKmM7 lbm [file] AhJX5UZl0XZfV8AXJ4jNQmQz1XXvM5BgTIHdVaYF4NPUe= ID Date Data Source [id number] 09/02/2020 05:16:00 AM [facility] Name Value Range Interpretation Code Description Data Sanjuana rce(s) Supporting Document(s) Glucose, Fingerstick 241 mg/dl 70-110 Above high normal [facility] The above 1 analytes were performed by [facility] [id number] [place] [address],[facility]#: [id number],[place] [address] ID Date Data Source [id number] 09/02/2020 05:05:00 AM EST [facility] Name Value Range Interpretation Code Description Data Sanjuana rce(s) Supporting Document(s) WBC 10.01 x1000/ul 4.80-10.00 Above high normal [facility] RBC 3.83 x1Mil/ul 4.70-6.10 Below low normal [facility] Hemoglobin 9.5 g/dl 14.0-18.0 Below low normal [facility] Hematocrit 32.2 % 42.0-52.0 Below low normal [facility] MCV 84.1 fL 80.0-94.0 Normal (applies to non-numeric resul ts) [facility] MCH 24.8 pg 27.0-31.0 Below low normal [facility] MCHC 29.5 g/dl 32.2-37.0 Below low normal [facility] RDW 19.2 % 11.5-14.5 Above high normal [facility] Platelet Count 131 x1000/ul 130-400 Normal (applies to non-numeric results) [facility] MPV 10.3 fL 9.4-12.4 Normal (applies to non-numeric resul ts) [facility] Neutrophils 91.5 % 40.0-74.0 Above high normal [facility] Lymphocytes 3.7 % 19.0-48.0 Below low normal [facility] Monocytes 4.1 % 3.4-9.0 Normal (applies to non-numeric resul ts) [facility] Eosinophils 0.0 % 0.0-7.0 Normal (applies to non-numeric resu lts) [facility] Basophils 0.1 % 0.0-2.0 Normal (applies to non-numeric resul ts) [facility] Immature Granulocytes 0.6 % 0.0-0.5 Above high normal [facility] Nucleated RBCs 0.00 % 0.00-0.20 Normal (applies to non-numeric r esults) [facility] Abs. Neutrophils 9.16 x1000/ul 1.92-8.31 Above high normal [facility] Abs. Lymphocyte 0.37 x1000/ul 1.20-3.70 Below low normal [facility] Abs. Monocytes 0.41 x1000/ul 0.14-0.97 Normal (applies to non-nu meric results) [facility] Abs. Eosinophils 0.00 x1000/ul 0.00-0.76 Normal (applie s to non-numeric results) [facility] Abs. Basophils 0.01 x1000/ul 0.00-0.22 Normal (applies to non-n umeric results) [facility] Abs. Immature Gran. 0.06 x1000/ul 0.00-0.02 Above high normal [facility] Abs. Nucleated RBCs 0.00 x1000/ul 0.00-0.02 Normal (appl ies to non-numeric results) [facility] The above 24 analytes were performed by [facility] [id number], ,[place] [address] ID Date Data Source [id number] 09/02/2020 05:41:00 AM EST [facility] Name Value Range Interpretation Code Description Data Sanjuana rce(s) Supporting Document(s) AST 27 IU/L 15-37 Normal (applies to non-numeric resul ts) [facility] Sulfasalazine and sulfapyridine have the potential to falsely depressAspartate Aminotransferase results. Baseline values before medication administration are recommended. ALT 46 IU/L 16-61 Normal (applies to non-numeric resul ts) [facility] Sulfasalazine and sulfapyridine have the potential to falsely depressAlanine Aminotransferase results. Baseline values before medication administration are recommended. Alkaline Phosphatase 74 mIU/ml 50-136 Normal (applies to non-num awa results) [facility] Total Bilirubin 0.30 mg/dl 0.20-1.00 Normal (applies to non-numeric results) [facility] Blood Urea Nitrogen 24 mg/dl 7-18 Above high normal [facility] Creatinine 0.73 mg/dl 0.67-1.17 Normal (applies to non-numeric resul ts) [facility] N-Acetylcysteine (NAC) and Metamizole villanueva ve the potential to falselydepress Creatinine results. Baseline values before medication adminstration are recommended. Patients undergoing treatment with phenindione will have falselydepressed results. Patients on phenindione therapy should be tested with an alternativeCREA method.Toxic levels of acetaminophen may lead to falsely depressed results forpatient samples. Glomerular Filtration Rate >90.00 mL/min/1.73m2 [facility] GFR Reference Ranges:Normal Function or Mild [...] of Health and the National KidneyFoundation. The [place] method used in calculating this result is traceable to IDMS standards. Glucose 261 mg/dl 70-110 Above high normal [facility] Sulfasalazine has the potential to false ly depress Glucose results. Sulfapyridine has the potential to falsely elevate Glucose results. Baseline values before medication administration are recommended. Calcium 8.0 mg/dl 8.5-10.1 Below low normal [facility] Total Protein 5.7 g/dl 6.4-8.2 Below low normal [facility] Albumin 1.8 g/dl 3.4-5.0 Below low normal [facility] Sodium 140 mEq/L 136-145 Normal (applies to non-numeric resul ts) [facility] Potassium 4.8 mEq/L 3.5-5.1 Normal (applies to non-numeric resul ts) [facility] Chloride 106.0 mEq/L 98.0-107.0 Normal (applies to non-numeric resu lts) [facility] Anion Gap 12.8 [facility] Carbon Dioxide 26.0 mMol/L 21.0-32.0 Normal (applies to non-numeric results) [facility] The above 16 analytes were performed by [facility] [id number], ,[place] [address] ID Date Data Source [id number] 09/02/2020 01:03:00 AM EST [facility] Name Value Range Interpretation Code Description Data Sanjuana rce(s) Supporting Document(s) Glucose, Fingerstick 244 mg/dl 70-110 Above high normal [facility] The above 1 analytes were performed by [facility] [id number] [facility], ,[place] [address] ID Date Data Source [id number] 09/01/2020 10:29:53 PM EST [facility] Name Value Range Interpretation Code Description Data Sanjuana rce(s) Supporting Document(s) Care Plan [facility] IXJCOu8fTyXHFpSn30/PEKqnKUUnq9TiAOevJZs3GQrgORZxO3UgRMZ6pF7tMZC9QToPUcUsFoYiXcJ9 lbm [file] AgHaD1JXF0NBr5WvZ+GG0rNQl+Se5Ub9BeogY5tfXePLmbUxh1TM9JFDASH7ONTh== ID Date Data Source [id number] 09/01/2020 09:34:04 PM EST [facility] Name Value Range Interpretation Code Description Data Sanjuana rce(s) Supporting Document(s) H&P [facility] SCRSXg5lLaIZSlVf55/HHKmfYFVki3XyGUogSZi3CAjcBOWfA8XaSLD6yG8xBCP5WBtHPnVxUxFkTxV0 lbm BqQybHBjGzEAFmMwyOUpOyPWhxBjrqtUVcQW4CfEX0TDDmW86wUCLiIKCvA2HuNRF8KVZ+Qe3ACXIwjD LhTC8RLxqR9C9Ay3pKIl7h7c0LTYCwcuDyb322MeWke9Nneadsc5laFjLmbiOMNQdPak+NKNT9ce/R4I KESpAS6cROME70m62XbGQ887q1CTqh87jt/6st86Ct rNl76zq7m+qv31l3C1fx9lPfTt+uXyh/1cW5A82KJzDx+9IeiZTJ1IEPaDuNHMa4jXVmvJCjyseHctWM G07dTx5Uin+i61zhKskeVxyzLit07umJagwkRZaRur++/E6N/p68JUMharLTuPrsI34/GlriBCp99WO9 1Hv4rMQYifW68689oP3b1PpNSpB3Nz3e14E4sZL7xN [file] AgICAgICAgICAgICAgICAgICAgICAgICAgICAgICAg ICAgICAgICAgICAgICAgICAgICAgICAgICAgICAgICAgICAgICAgICAgICAgICAgICAgICAgICAgICAg FVSdIEWoCF4KJFOzVWIuNJKiHESqHZFdNUZjTAYtAZKqACWyJYXiVYAuKJSwPZSlLLLvPHNtOLUoBPLe ICAgICAgICAgICAgICAgICAgICAgICAgICAgICAgIC GuUICxLVEsDQNuBNJeRPIdMJ8JRRMoCJRtJMLhGBCkLJApFIXpZQYlNJJzGASxNHZqQVZdJGUeSBYaKD AgICAgICAgICAgICAgICAgICAgICAgICAgICAgICAgICAgICAgICAgICAgICAgICAgICAgICAgICAgIA 0KICAgICAgICAgICAgICAgICAgICAgICAgICAgICAg ICAgICAgICAgICAgICAgICAgICAgICAgICAgICAgICAgICAgICAgICAgICAgICAgICAgICAgICAgICAg CMMkZMSaGAUjLD7ALERqKWMqIAUaNWAiSALgYRFkUVZiOVXyRANzWVHsMQIcEXPgFBKgPMNqBEFeMIJn ICAgICAgICAgICAgICAgICAgICAgICAgICAgICAgIC CjTFTeNFOlRECsEYDtZGOuKYUtWI8GGOOiEYWxZVBnEMCoBBUjEQLkEDIaWJAxYXNaMXCsQTUoVPWgUF AgICAgICAgICAgICAgICAgICAgICAgICAgICAgICAgICAgICAgICAgICAgICAgICAgICAgICAgICAgIC NwQH3IBQRzQYThYVZjMFPpNNXtRMQpQOZoGJLoREXy ICAgICAgICAgICAgICAgICAgICAgICAgICAgICAgICAgICAgICAgICAgICAgICAgICAgICAgICAgICAg DJJxAVVqOOLoVWQjNW1YOJWmNFXhSKKiJDTgQSHmFGAwCLRcMHXiLAMoNWTbAJEqGPYiCJKmZEEoTCAa ICAgICAgICAgICAgICAgICAgICAgICAgICAgICAgIC QtFBImBODpLNCfNVLmLHEoVFRoGRVkRR0UYQVvHOZqDXMlLJBmWSJaHBQmRSHvYDPsXIVcLPZrDRNpUM AgICAgICAgICAgICAgICAgICAgICAgICAgICAgICAgICAgICAgICAgICAgICAgICAgICAgICAgICAgIC MwDMWxRA3ABH52qNYwl3K4SOCbEE6uzoj/Rn4JUTbi veJuhJDfLK8HVoEhUO3txh5BPaLfZI3pwy9WIOlIFqFhJ6P9yOAxQZBtZAQIIzFkB32tLTqvUn35UGma UEOtCzIrGGr0Me9ALeFaD6zyMHIdYvO4CUGrCdN8KYHuKnB5TZRaAvDbVCBtNWDeUHUxZGXAOSK5ZONb AhMqWmXiRMSkUJ3VYJXzJ693lyEgKc9KCi5ICtPuIH 5ozh2NKZXtMXQdHseYByq1FTlzBF6VeZMpvSA4FEAyZROFEbYdN6azt6UoNDPiRMOQQLyhBD1Gh6CczH AxDQo+Qz0PIM4me8YuCDw6SGRkYV6rsk3IWDdNZkLlI1YhgFywCDoqFTAnhHPXpQAovGewQGaspgN5n4 YcJa3qlrAboumxWTUxPQPuFf1kMz1oKYBpKFU1YaKu RRVWPX2NJYCqJRVsrJIlGZFbLPQTKS9BIGutNYW5ApjbzvVwwNEsOYyuGA1VVYGhlnUhYITqFEFKVPv+ Cd0CEL8vi2QnRNu7PwXtGX8wyf1CUIcCKcNrN3G3jBCjD1B7IVaqVp2BMGDsDNSmOrhlMTHYEVueCF9J ZD7cbwK3WS0WeKKbURMyUOZznKYwYFo5V99ylYDpXY rzKD2NIPM+Rosanne+Jt7QLVJbPVXeUCPmNlWqYTVJXdTtE0CmE1PPm1SaD4ZqWH17eXzrfhOhNYkyMZ9KKV 5bNWLkZGUXNX6UnXAwvP1ysmY3RJHhZIWWZhGgJ78gnYAfLJNnJTU8SUDfQe9YFIMdM2UlikAyuHvtmt XjRUXjDGBLCM9ODXenjiPjmZPzaGuyBG86bMsbHO2V Qw8EThSuQQ4tue3DhLGlXv8CABV9Jq2BQFZaXJNhDKMqZNV0UXZrEwKzEOjmJRAzZASzLHW4WAQzPSLo XS5KVyAeGWApRNz1OZnjAPPuEAJrst8ZSNYlDQD1YXOsGGRyHQLhKTPzUQmeLSFkHJHbOWV8YDKaEWRl EZ7SBvXgZWZmHFEvORKjCGJnKRTteq9RRFDyXPKdCx G3QtWaWMMmAQTiZSocURYhIOJ8TGT8KKEbYXBmKL5RHeWsWMNeVZvsUaCoWQOfLUSlaf4QYNFaEONiXY W5RhPoVUGuFAHiNDqvEPUhSWT9ScoqZWRcQNPmXW0XHoUkSSHgZNO1BVqhUOPgTBCtup6CVADnFWSeHL bsNzBgFQZbMRYzNKntATYzLNL1IMC3OCIvTAGmVP0N SpViNBLmDRDdTgBkLIYfHOGtgt1IROSySFIaEaE0HESoMNAwGVWzCTeoHHBlNKO3FxtiUEPqBYUyTT3A DuKvGNCbCShtXPYoMDXgDBBngu1MRPXfZITiORP2QyRhHIJrTHQqFNvxGLDlKFK8ZbT8RGLkHDCgAR1M NlExVDIxLZf2JOitIKOwUEVndb6CDYEtOXCgBNjoPf YnVXEySOSfIAxtBEFjXMSgKsv0WGOsXGZmII9JGuShWWBwXmF0ICTrFLQiMVFgyt3KNUWhRSJtOYX9Qh DmLHRrAEMoNChlMVIeYONuBBR8VDMiGETyHP7MNdRaQIBxVgBfXXDkTJJcBDUsed8XHTJaMPHiXpAcIz EdXWHbVIXtHYdvHJIpCHCuDoswLTAsEQAoMX0AWbBd HLIkSvU6VCWrTNVxIEVdbi7JBJFtTTEnFzr6DsCgFGSxJIClZUlaPLBdVUQ3GrC9EVZrJLQzUS6WTyAl KYTiWWP8PDIkUBKmFTFtth9GQDMxXNE7UuHzBPQnFAHjGNRdZJwyZTQdXEE1SOOcAVTlPQLvAG5XGeQn JECrRMeeOBCkCOJuQLReqf9PXEKnGCI7QVT5IwKgLJ EoGJOjSDyaULWcVCY3NdVaOOMaONWyVD8PMvRoWLNmSWk3BrGhTLTjOFSthm8ANNPwQMK7ILi7DYMhTL KlYLTrCPyxLCOmUBBsIyJhUTDwVDSfGG0EUkYpRRIsLTN7HiTrMUFpNQPpow9QAUXtNTT2TNU8FDKrNR DkHLIcWVi4dnPwwCGjRSw2JT8PK6OhhnZeCHWWMf5U x095LXXeBUZvCd3YT5uoNb3kNHXcHTQYBc2IQXl2GQdnJWR6Rol4OWg0PXLsVQVhUsHzSBJ9NVQ1TFTg MWM+ODojUPV4UNr3EJKzMlI6LAKcQ9NrTHB4OmIlXFB0Q4NcMm8fJXQXOi9+DQpzdGFydHhyZWYNCjUx DON5PMjxGTTJAv4H ID Date Data Source [id number] 09/01/2020 09:37:00 PM [facility] Name Value Range Interpretation Code Description Data Sanjuana rce(s) Supporting Document(s) Glucose, Fingerstick 281 mg/dl 70-110 Above high normal [facility] The above 1 analytes were performed by [facility] [address] [place] [address]#: [id number],[facility] [place] [address] ID Date Data Source [id number] 09/01/2020 05:21:46 PM EST [facility] Name Value Range Interpretation Code Description Data Sanjuana rce(s) Supporting Document(s) Nursing Note [facility] NVUYFo1qCoGQLbOu06/ALOwiESNlf4CdEZvhGRc2AZezPJVxM1CmQWP6gJ7yZYL9TNuVPbMmGhAkZeK7 lbm [file] AgICAgICAgICAgICAgICAgICAgICAgICAgICAgICAg ICAgICAgICAgICAgICAgICAgICAgICAgICAgICAgICAgDQogICAgICAgICAgICAgICAgICAgICAgICAg ICAgICAgICAgICAgICAgICAgICAgICAgICAgICAgICAgICAgICAgICAgICAgICAgICAgICAgICAgICAg ICAgICAgICAgICAgICAgDQogICAgICAgICAgICAgIC AgICAgICAgICAgICAgICAgICAgICAgICAgICAgICAgICAgICAgICAgICAgICAgICAgICAgICAgICAgIC AgICAgICAgICAgICAgICAgICAgICAgICAgDQogICAgICAgICAgICAgICAgICAgICAgICAgICAgICAgIC AgICAgICAgICAgICAgICAgICAgICAgICAgICAgICAg ICAgICAgICAgICAgICAgICAgICAgICAgICAgICAgICAgICAgDQogICAgICAgICAgICAgICAgICAgICAg ICAgICAgICAgICAgICAgICAgICAgICAgICAgICAgICAgICAgICAgICAgICAgICAgICAgICAgICAgICAg ICAgICAgICAgICAgICAgICAgDQogICAgICAgICAgIC AgICAgICAgICAgICAgICAgICAgICAgICAgICAgICAgICAgICAgICAgICAgICAgICAgICAgICAgICAgIC AgICAgICAgICAgICAgICAgICAgICAgICAgICAgDQogICAgICAgICAgICAgICAgICAgICAgICAgICAgIC AgICAgICAgICAgICAgICAgICAgICAgICAgICAgICAg ICAgICAgICAgICAgICAgICAgICAgICAgICAgICAgICAgICAgICAgDQogICAgICAgICAgICAgICAgICAg ICAgICAgICAgICAgICAgICAgICAgICAgICAgICAgICAgICAgICAgICAgICAgICAgICAgICAgICAgICAg ICAgICAgICAgICAgICAgICAgICAgDQogICAgICAgIC AgICAgICAgICAgICAgICAgICAgICAgICAgICAgICAgICAgICAgICAgICAgICAgICAgICAgICAgICAgIC AgICAgICAgICAgICAgICAgICAgICAgICAgICAgICAgDQogICAgICAgICAgICAgICAgICAgICAgICAgIC AgICAgICAgICAgICAgICAgICAgICAgICAgICAgICAg JOUrWCFaTLQgRQXqWDDcZRVeMXVgOUEcBLLdNJHcMAHbJBSyKRNlSHScFHh9Z5wsGRBtAIRxDT7pNFv4 Jz8+RLsKXsFfYAD1hpFogW9NXP5hg3ZqGPytUHHma5JsCAy4YX7YQMWeDLacCE8GMGgiqg2URCJlROMw aDQZv3wiZzXhJFX6HABuEhpcOX9SUGKkB6rblcZjDO NpGQIRYX6IRmYcQ6SxvG48CLJTCs3+DNklyvTwBpqAFfGsNNCrz3ZtBQn8LF6AFSQsTveke2XxHyVeQV JBVIjaXG6UJEG4AHSzBAPkKn3MVSRbL681fzRtZV5FSp2KNlAmGT5eud8HBuGaUEIdRihSNvn6YPzyLI 1YhWDdFJwTqKOzjW1kJX9kwBCuLbaaO8TydDpzvuiy EFtueHRwfSbcUu1oSLRaDq3lFh4iIEYzMBZ6GxVjDHFVAL4UVHXnNAAoeQNsZSFtNRXYKE8AUHxaBLB9 OvhyygQnqRTgSDbnOL5NSLUxtoFxCcNwWSQATOs+Ja7YSP0ev2SrXHevZIWeHR7xyr5STIhMCeSnU2W7 oHZfT3E6ZScaTz5NVMYkCPEjFzYsPYIPDYzmMG1GSG 7xlgE6FE5ZvJNtPTRuIMCgxYCnGVv0L46bmGUtYUceIU1PJBU+Rosanne+Mw6ACCHbOSIbYMRlHdWpPRZUKe YfP8XsN5TFx0JbB3CnUJ54eWkhynWwRMlwDL0LBK2sPLWmELJUKY6XrTQwhO9lovXeZqSkSORMKpHvL0 7npQFsOYOfSASsFWXaCa2YDMLeY5UfwsQkbHkctnNp SIBtRMDWXN1AVQemkbRkzIRinDrbUG42aKclGS2LEx0BFlYyYR6ryz3JdOYzQv6JOSVkHR6CWZHmYKKb ZSRuBAX3QURqJrAzZSavHTWhGBOhRWG3DFNcMNJcJF1DKtEoMISyZGf9RnPiWRAqPGDxxp5VPBYeRCCy PVQ9UQNhBGKnFYYiHRygOUHyDZQaWTA2GXRbCHJjFO 8ZCaFpBYRbTTOeFCbgWSCiZAVlxk2MPACcYBIgVaWwTIOaQRYuHZXcHNxdTCInUNUoJXJ7YCNdIZMvPZ 7ILuWgTIJeLKQ1QuEyHQKiBJCdrj7UIPRcIXXkVzb8XFVeUVRySSEwUWobCIJtXRU1MGT4INLkQUIdPF 2ORxMmRJCtBPRnIDXxCFPgEPMstc4PLHZuKESeZBO5 OoVlPIPzEEZoCVoyOHUjORG8JdCdQTRvFQGzVQ7UUjAeCHLcJFh6NUkjUTBlVQTdns7VUQSbBMLsNJO7 RdYuZVPeTRWkEScnYHTcFKE7Owy6UQKnVOEgJT7VBmEeULJyTEx6RBCyXVThSWIzhp9JTEPzQRFkLZV4 HMHfATTsGVCzTUctDXLzQWI6TvwxFLZlFCIdCH2EGt CpYQOpVTp6RPNmEEHmGFHzes3FGLHbLVNuCFY2HNTeCDAtXDEqOKupHATbXZKnEmm4GMOoREVjUQ1ITk TpCVSmQyI2XvkpOATdFICuto6HTSRlMGQiEEqiHdCmUXOvUULzVOy2qyEplXPkJLb0UI3BN4GbevWdUv UNHr4Cv278CNJ3KXBuRa0PZ6syQl6tYPZqLIRMOw0J XKo8XPe2EFEiQVAsYnLqVQJsXHUnKYMgFhBtQPD4BVOrWID+SElzFNo6NHVdB6M8WQU6IjEuLoI8C1Bc RAZ2VSI0WwK1IA5bKIOKCt8+VOtqjVAryFusHAZQTzAfMTPbKPunJXGJKp4D ID Date Data Source [id number] 09/01/2020 05:15:00 PM EST [facility] Name Value Range Interpretation Code Description Data Sanjuana rce(s) Supporting Document(s) Glucose, Fingerstick 298 mg/dl 70-110 Above high normal [facility] The above 1 analytes were performed by [facility] [id number] [place] [address],[facility] [id number],[place] [address] ID Date Data Source [id number] 09/01/2020 04:51:55 PM EST [facility] Name Value Range Interpretation Code Description Data Asnjuana rce(s) Supporting Document(s) Nursing Note [facility] TGLUXi0qNjEHAzOk33/RUAdfQKEyr6OyXOfxANo0EPusXMEkF5PhCML8pQ1cGSN5COlUQsIlBvUbCpY5 lbm [file] AgICAgICAgICAgICAgICAgICAgICAgICAgICAgICAg IDXgCSYiJZVjBA1KEAOdLLRsRSEcTYYpQNQsYOAzQTGfELDmTKOoOMIwXOHbYBJrRTFwOTJzBEZpAOZh RYSjFYHaVNMzYLYkVGGySTZhCVHoGTYuYUQjIHDiWAMqQOEmGCZwGAZcSSVzNKAhKOZpBO8BXNQaPBCj ICAgICAgICAgICAgICAgICAgICAgICAgICAgICAgIC AgICAgICAgICAgICAgICAgICAgICAgICAgICAgICAgICAgICAgICAgICAgICAgICAgICAgICAgICAgIC YpZE1SELCkDYWaUCJwSFFeARNhHQTnUNWuGHBgOCRdFNUyBRKqNTUsFETxHYEvJNAkDWZrHNLzGPYuIV AgICAgICAgICAgICAgICAgICAgICAgICAgICAgICAg IDGpKKBxUGTqIHEqLX4YRTBcDOAxYUTnFEIxJFBdKVIcDCWjWFMhBESkXQVaXQEvCVAxBCLbURAmMHMh ZIMaBHQoPSPdIFKkBURyBSAaEQCcWMJsMGJjHWSgJVAbFTMrWMNpCWJbGESlWQQsPLWhVXEjMP8ZUGCe ICAgICAgICAgICAgICAgICAgICAgICAgICAgICAgIC AgICAgICAgICAgICAgICAgICAgICAgICAgICAgICAgICAgICAgICAgICAgICAgICAgICAgICAgICAgIC VeKZSqUG9XZCIxHNGnRLAkGBBjUJXaISKoLZCeUQDlTGNyMLRfSOYlNQSuILXhVALrHIKfEOCbETLeFA AgICAgICAgICAgICAgICAgICAgICAgICAgICAgICAg ILBtIGItUKRwHHQyFSYbTQ1VHWLnDXCtRGXaPMUnYAUmMGFkDPGeFLXeUSHjNMOnABYjTUFqUEJkQDKm RSSpAPSzFRGeJMWzLDVfJORhHRYvLYCtXJHqRHMhGFLnAQDdLAEcRPVrBINvOHFgJOFeSPInMRRlBU3I ICAgICAgICAgICAgICAgICAgICAgICAgICAgICAgIC AgICAgICAgICAgICAgICAgICAgICAgICAgICAgICAgICAgICAgICAgICAgICAgICAgICAgICAgICAgIC ImDFDtDFWtBP6FNLUgMSQoSTKrSRQdXJSuZVRrRTAvEUVqSVHoWYZbGARnYXFoTBCfRLFsQCXhIKHyJZ AgICAgICAgICAgICAgICAgICAgICAgICAgICAgICAg WKOwVCHrLMBaDQGwPOCkSWHxWK8FKZ79mQEdz2X2QAMrOF0rfkd/Fc9TWRygrnUshKSqLG0DXnYkVI1w ob4ZYzOwSD2ifw7AJWgFPhJfV4E4zMMkPHRnAHKFZlAeC97zPLwnAz63TVfaBEGxJtQuSDr1Uv3CNlJm L3tfECXbHoW3MLPzUgXeQKkfWY6My1FzpCBwGEw+Pg 6XGU4wm5DnAGllRiGfTQ9vox8IKKuDRhGeH1NorlO6GTG6WZDeGg4ZOEGsETDktCIrGKHbSXFSEnWgJ8 VzaL68RPZMDy7+TBqbesPaJfgAUaX2YBDtm6KrOYq0QW5SNNOjWOu1kHUwUyWcz4ziViYEf7AoGKH3OZ Blt55fFVGHi2TgpffmUm7dKVPlRq6tWh7dTYQlEVE3 ElWgSPWVVU1LNVAwAUDutUDeHIIvTHUIAY4HZOjxAXQ3LkhhdbTnuODxGPpeOU7KHMSyooMiMwKzMQLJ DQo+Du4MNS8gg0VvFRokRUWlGO6tnc6WTZxOXdHyD9L6dAMrO8O8VWwyQc0FFEBcXICsIsXvILRZOSyt GS1NAT5cesH2TN4CjBElYRXdYTLpgNDzSWm8R19nfN IuQJikXX0LTAT+Rosanne+Da6ARRNoQZNiYLKaEiDjSXAWFtAnC6JbR2NOx7CbZ2XhZW79vOtzstMeUHqzCD 1AGW0dBNGaVTTAMB6SqQUpqV8btuOmIkXsIFTUCtDhW00jmLAlBXQmPVKjHBQhFl3DUIZlX7CxvnMbzJ fbhkFjAXBbAUTEGF8JHTjjdsWksTJtpTdxTZ63rYqy GA1OIg1GHyEjLM8ytt8KpXJdIj1DQMZjUd8OCYCxGWHtJEFxBHI5ESYaWhZtGBejJYLcKJUeFBZ0VBKh KHCpYK3URbRwYTDvZQqhYAcoDZIqNQSquq4NKGDrFJRzZHX5InFdZXXvBLYdHYsgEIJxCNDzLVR0XPDu VPQhOO7ROxAgWTNdXBCqLxAxSYDfEADkbd7OQVCdHG ZyCYPuHWJuTOLbRUXxKGkyQVTaZGHhMYw1VHFuVZOtJV6UUqPpNGZzERB2DShvUCMkBWOckq3KDVWrSA VjMlx9HuYjRVQkYNYbYDktOTEpEZQvEJLwUEAyHTFzLX3JXdWiKZOaRSBhCmlcLKYsIWVval4PEFAqYP GrZMJpZTXuOLKaSNIlUOgkGJLwXGU3KNq9OEFrPCAi TU8LWpWbWCMpRVTzXXIhABQyJQMyhd8MGIMuAWQaMRC9UvAkAJFfMRLrZQigUNTkDPG8RLK1LSZpJJBs FS6IRcSbTIZvCJH3LwJzPTImJRWpxq0GKJCzUTZqLpoyEPLyVLXlOFZkGZzsSERgRRU3RHe1OBMlIXWh OL7NTcRdIMYxSKrnYhnwOUCoKSRbqq3AYXXaIKLpRR Q0HQQgCIOuSFGfMXvsQKDyMME7NfMjHXYbWJTaKG3OZfKgQKHmQDWlTwObANOhTZCink7XCLLyONGfRO XoTOHtYFFcORLfEUkfPALvTREyIyj4FLYdQGMdPA6ZMxJqZHnpIKMQTcw2VRwpY2j6VVWqIp1YI5Zrs6 DtWcRgAYIMZNnhLZ8rplBqHPDlQp7IS0zBAmzzRLPz PJN0KKLaTCPqCBGkSzY2YyDeLyM1I7K4ZCH2DE0oMCI7NtZeXVpvO1IsEXQ3EYXmEvt0BAVuEaw2FIRk FIowEmWbXP8WYt3LBsX1PFQ2wBXkGd9SNRR2KpOWAyGcBI9EOQz= ID Date Data Source [id number] 09/01/2020 04:51:15 PM EST [facility] Name Value Range Interpretation Code Description Data Sanjuana rce(s) Supporting Document(s) Nursing Note [facility] GWFPHp0kKoXJLhLd56/AHMtsGHJhx9DjLFqePZz5UCjwTYMcE8YdDYJ6gF7xENZ3UYwZSkInBcZdDtX1 lbm [file] h1LpI2ZRZbGDHtZRHtUxszOke+TE7dRIe+Me1Ci4RjxzP4cvAmYHyeGXVhAo8YADCLO1NUJh== ID Date Data Source [id number] 09/01/2020 03:44:55 PM EST [facility] Name Value Range Interpretation Code Description Data Sanjuana rce(s) Supporting Document(s) Consults [facility] XTMKBa9hOaMEFbYm37/NPUkdIJWhc8KmWJulZDt6QIojPYLsR4NoFNQ6jQ6wITK9MReMXqKlZvMySuT1 lbm [file] IgLPnsJwptOAq3A6Y7OhRdXvM7XAf+FO7pGQt+Wm2Pk1DkzlY6dxOzGXpxUkK3Tj8KROUVC6NCFy== ID Date Data Source [id number] 09/01/2020 05:37:00 PM EST [facility] Name Value Range Interpretation Code Description Data Sanjuana rce(s) Supporting Document(s) Vancomycin (Random) 14.8 ug/ml 10.0-20.0 Normal (appl ies to non-numeric results) [facility] The above 1 analytes were performed by [facility] [id number],[facility] [id number],[place] [address] ID Date Data Source [id number] 09/01/2020 05:37:00 PM [facility] Name Value Range Interpretation Code Description Data Sanjuana rce(s) Supporting Document(s) NTproBNP 915 pg/ml 0-125 Above high normal [facility] Acute CHF unlikely if NTproBNP:<125 pg/m L for age <75 years<450 pg/mL for age > or = 75 yearsCHF likely if NTproBNP:>450 pg/mL for age <50 years>900 pg/mL for age 50-75 years>1800 pg/mL for age >75 yearsCHF very likely if NTproBNP:>83316 (regardless of age)The PRIDE study recommends the above cut-off values. It also recognizesa change in a patient's "dry" value of >25% as being an acute episode of HF. Therefore, a return to their"dry" level at a 25% decrease is an indication of a successful intervention.The above 1 analytes were performed by [place] [id number], ,[place] [address] ID Date Data Source [id number] 09/01/2020 05:37:00 PM EST [facility] Name Value Range Interpretation Code Description Data Sanjuana rce(s) Supporting Document(s) Troponin I <0.015 ng/ml 0.000-0.100 Normal (applies to non-numeric re sults) [facility] Reference Values:Negative:<0.07 ng/mLInc reasing Risk of ACS:0.08-0.10 ng/mLPositive:>0.10 ng/mLConditions other than NM that cause increased troponin I values includebut are not limited to chest trauma, cardiac and non-cardiac surgery,congestive heart failure, drug cardio-toxicity, inflammatory diseasessuch as myocarditis, pulmonary embolism, inflitrative diseases, andacute neurological disease.An AMI diagnositc cutoff within a range of 0.6-1.5 ng/mL is consistentwith the WHO criteria for AMI.Concentrations of Biotin above 100 ng/mL can potentially result ininterference. Results obtained using [employer].The above 1 analytes were performed by [id number], ,[place] [address] ID Date Data Source [id number] 09/01/2020 04:59:00 PM EST [facility] Name Value Range Interpretation Code Description Data Sanjuana rce(s) Supporting Document(s) Neutrophils 91 % 40-74 Above high normal [facility] Band Neutrophils 7 % 0-10 Normal (applies to non-numeric results) [facility] Lymphocytes 0 % 19-48 Below low normal [facility] Atypical Lymphocytes 0 % 0-3 Normal (applies to non-num awa results) [facility] Monocytes 1 % 3-9 Below low normal [facility] Eosinophils 0 % 0-7 Normal (applies to non-numeric resu lts) [facility] Basophils 0 % 0-2 Normal (applies to non-numeric resul ts) [facility] Myelocytes 1 % 0-0 Above high normal [facility] Abs. Neutrophils 15.66 x1000/ul 1.92-8.31 Above high normal [facility] Abs. Lymphocytes 0.00 x1000/ul 1.20-3.70 Below low normal [facility] Abs. Monocytes 0.16 x1000/ul 0.14-0.97 Normal (applies to non-nu meric results) [facility] Abs. Eosinophils 0.00 x1000/ul 0.00-0.76 Normal (applies to non-numeric results) [facility] Abs. Basophils 0.00 x1000/ul 0.00-0.22 Normal (applies to non-nu meric results) [facility] Abs. Myelocytes 0.16 x1000/ul 0.00-0.00 Above high normal [facility] RBC Morphology \\Present [facility] Microcytosis \\Slight [facility] Smudge Cells \\Present [facility] Platelet Estimate Automated platelet count confirmed by slide scan [facility] The above 18 analytes were performed by [facility] [id number], ,[place] [address] ID Date Data Source [id number] 09/01/2020 04:59:00 PM EST [facility] Name Value Range Interpretation Code Description Data Sanjuana rce(s) Supporting Document(s) WBC 15.98 x1000/ul 4.80-10.00 Above high normal [facility] RBC 4.00 x1Mil/ul 4.70-6.10 Below low normal [facility] Hemoglobin 9.9 g/dl 14.0-18.0 Below low normal [facility] Hematocrit 33.8 % 42.0-52.0 Below low normal [facility] MCV 84.5 fL 80.0-94.0 Normal (applies to non-numeric resul ts) [facility] MCH 24.8 pg 27.0-31.0 Below low normal [facility] MCHC 29.3 g/dl 32.2-37.0 Below low normal [facility] RDW 18.7 % 11.5-14.5 Above high normal [facility] Platelet Count 122 x1000/ul 130-400 Below low normal [facility] MPV 10.3 fL 9.4-12.4 Normal (applies to non-numeric resul ts) [facility] Nucleated RBCs 0.00 % 0.00-0.20 Normal (applies to non-numeric r esults) [facility] Abs. Nucleated RBCs 0.00 x1000/ul 0.00-0.02 Normal (appl ies to non-numeric results) [facility] The above 12 analytes were performed by [facility] [id number], ,[place] [address] ID Date Data Source [id number] 09/01/2020 04:15:00 PM EST [facility] Name Value Range Interpretation Code Description Data Sanjuana rce(s) Supporting Document(s) Blood Urea Nitrogen 27 mg/dl 7-18 Above high normal [facility] Creatinine 0.84 mg/dl 0.67-1.17 Normal (applies to non-numeric resul ts) [facility] N-Acetylcysteine (NAC) and Metamizole villanueva ve the potential to falselydepress Creatinine results. Baseline values before medication adminstration are recommended. Patients undergoing treatment with phenindione will have falselydepressed results. Patients on phenindione therapy should be tested with an alternativeCREA method.Toxic levels of acetaminophen may lead to falsely depressed results forpatient samples. Glomerular Filtration Rate >90.00 mL/min/1.73m2 [facility] GFR Reference Ranges:Normal Function or Mild [...] of Health and the National KidneyFoundation. The [place] method used in calculating this result is traceable to IDMS standards. Glucose 290 mg/dl 70-110 Above high normal [facility] Sulfasalazine has the potential to false ly depress Glucose results. Sulfapyridine has the potential to falsely elevate Glucose results. Baseline values before medication administration are recommended. Calcium 8.6 mg/dl 8.5-10.1 Normal (applies to non-numeric resul ts) [facility] Sodium 138 mEq/L 136-145 Normal (applies to non-numeric resul ts) [facility] Potassium 5.1 mEq/L 3.5-5.1 Normal (applies to non-numeric resul ts) [facility] Chloride 103.0 mEq/L 98.0-107.0 Normal (applies to non-numeric resu lts) [facility] Anion Gap 11.3 [facility] Carbon Dioxide 28.8 mMol/L 21.0-32.0 Normal (applies to non-numeric results) [facility] The above 10 analytes were performed by [place] [address],[facility] [id number],[place] [address] ID Date Data Source [id number] 09/01/2020 03:07:48 PM EST [facility] Name Value Range Interpretation Code Description Data Sanjuana rce(s) Supporting Document(s) Nursing Note [facility] MRPBOs3zJqSUViIp26/RTIaiBAFob7VzYWhbVEl4NSbiDJTcS3RfTLR1vW2xKZN4EMeECjPzMcAbJoE1 [facility] [file] VmHaSTLnAR3xNSRFFx0+RJfukDOpwZvyTSBRSpt9SaJWVoVzKO4QWRa= ID Date Data Source [id number] 09/01/2020 03:07:28 PM EST [facility] Name Value Range Interpretation Code Description Data Sanjuana rce(s) Supporting Document(s) Consults [facility] NOSVAh0kCmHTHaJu30/BCQymRRRxh1OaMGmaKOi3YMtzHCKiL4WdDCY5uV4pIRV9QBcOYgOsQvObTfB5 lbm [file] AgICAgICAgICAgICAgICAgICAgICAgICAgICAgICAgICAgICAgICAgICAgICAgICAgICAgICAgICAgIC AgICANCiAgICAgICAgICAgICAgICAgICAgICAgICAg ICAgICAgICAgICAgICAgICAgICAgICAgICAgICAgICAgICAgICAgICAgICAgICAgICAgICAgICAgICAg ICAgICAgICAgICAgICANCiAgICAgICAgICAgICAgICAgICAgICAgICAgICAgICAgICAgICAgICAgICAg ICAgICAgICAgICAgICAgICAgICAgICAgICAgICAgIC AgICAgICAgICAgICAgICAgICAgICAgICANCiAgICAgICAgICAgICAgICAgICAgICAgICAgICAgICAgIC AgICAgICAgICAgICAgICAgICAgICAgICAgICAgICAgICAgICAgICAgICAgICAgICAgICAgICAgICAgIC AgICAgICANCiAgICAgICAgICAgICAgICAgICAgICAg ICAgICAgICAgICAgICAgICAgICAgICAgICAgICAgICAgICAgICAgICAgICAgICAgICAgICAgICAgICAg ICAgICAgICAgICAgICAgICANCiAgICAgICAgICAgICAgICAgICAgICAgICAgICAgICAgICAgICAgICAg ICAgICAgICAgICAgICAgICAgICAgICAgICAgICAgIC AgICAgICAgICAgICAgICAgICAgICAgICAgICANCiAgICAgICAgICAgICAgICAgICAgICAgICAgICAgIC AgICAgICAgICAgICAgICAgICAgICAgICAgICAgICAgICAgICAgICAgICAgICAgICAgICAgICAgICAgIC AgICAgICAgICANCiAgICAgICAgICAgICAgICAgICAg ICAgICAgICAgICAgICAgICAgICAgICAgICAgICAgICAgICAgICAgICAgICAgICAgICAgICAgICAgICAg ICAgICAgICAgICAgICAgICAgICANCiAgICAgICAgICAgICAgICAgICAgICAgICAgICAgICAgICAgICAg ICAgICAgICAgICAgICAgICAgICAgICAgICAgICAgIC AgICAgICAgICAgICAgICAgICAgICAgICAgICAgICANCiAgICAgICAgICAgICAgICAgICAgICAgICAgIC AgICAgICAgICAgICAgICAgICAgICAgICAgICAgICAgICAgICAgICAgICAgICAgICAgICAgICAgICAgIC AgICAgICAgICAgICANCjw/gSEeL1ztjSMqlqD4X2cf On2CQl9CNI4rv7TlAPJlOSilgbFvLejFUkPrYXMjLfcSDme8JEmkPP5IsIKsR1PrD9TbLYdeLS1GLIDb LYAefLPzCLSeGPOpUeH1UNMiARgfFR9FaKZzDQjtSUVrWCErTiSbDRUrKKXqFCSzHQ6HDCTcU054pmXb Rj8CBs3QIvJxQO4qvz1PHqLxVZJwKrlAKzt5XRogWJ 1ZlDBklOGzHaWlOZEHKvKlJ6wts5CyTaWvAYLTZJxeEQ4Bl0WaoOTfSPl+Vu7DUA3sw6WuWXtiTaUgEX 1pjm3DSWgGKiFtW4GvnJdyHMFjhrF6dPNbCFB0EJ9xgFphhFAZBW2fnNAnd3r0HTewXWXTOAQbzRMjMs E6WkUzUhSfRIP6XVVeSK9uLAryVS5SLWO9PSopWPAf WIEuK7gRIgOfMZpeGALamJqeUD1MMsVbN3UonqMrgARuCEHwDJHLEa4+EFxrvdLzRowHJuL0XSGlm4Zz BWr6VI3IIYStLXytUK3XRDPqrU7lVHijIV8CKmEjFdBcSTXPWpMlC16zfCTjOYe4B2YbHpZvOGZaUkvs ZXMgPDwvTmFtZXMgWyBdDQogID4+ID4+XSgfVD0ELE naxkOvAJRxXn5GKDUnCYLhYP1qNCTvBRNbL1T5uIuoJAYVJbHoX0jaqcghDK1lZZKdV304uRcqpeFqKS Q0CWGaZj6JCMQlOQV4XJQthUNaFcFmSGDNNGakTX5AjJUmQFZ8zL7pOYxySUQwUOKtA1pZIqYjjIjyIK 51bGwgbnVsbCBdDQo+Wx9ORQ5ma9VzLBv5dvBlUCgk UTX8MSsaTQPsORMrUJBzZSH2MKC4KLLQNgXrDXQzIXPgMCjjSADlRALayj0HEJJkDNUuBCU1NuRsVLKq XROcVLudHDMqTUPqIBE3CKOaTKPvUT4CPrVrQGOtZNDbAHztHJSiJMOhiq3IVQJvFMDiQyD8QzWuCSQl HWEzSMilONOoYJTiGHZbXJTdCQHiDO9LKvIeKWEuEU ovTFKxNLLhNOVxzv1XQRCeCMIqHkE9ZVRtOKEtKYNiJBqcSGJlCNO3VgKgBKZkYTWsCD9PRvKyXFKcYN b1EdCzDNQrOGZefy4WJYQdCSHcFMIcGSUqPPLgQLYeFDzkPQIuKLMkBnG7UDRxCQQbDN6QZoGzKBDxVU Q6KOViCAIoGSQixo3HYJLnXXTlWIt6CGRuFMFySHAs ZAliTDAbXTVyFCckRXVmMOPpIU4DEcViKHSoRUQnNGXpYFZmWAAdop1WHXRbROBaHCRtONPvJQHdQJGa VFhpFPYuIAV3VERiQHAiBPLjYZ4TCsHqJOVbScBqHfxiDCLqJCIukh3TEGViGSGdIAS6LAMuKEIxRJIx COheFGImPAA7DEI9CJSoKNJdCD4ALjPkYRKgGzScGP ajMZGvHIEtaz2ADOXbVHYvSdT5TwEwJQWfAPHaPTkvWRWvVVP9VzP0OMIwMXIiRM8WXqZvSITmIkj3JW rdGLJfCJSswb5JITToBWHlPvr8PuVfVQVlAVReJGssKLJoOOQ7TPX6ASIkMAWxNP3EElIfJVBlWyb3CE xbFEHvGTCtzj6THCBoATAqKCN9UGWdXDPfBXNbZVpl HORdAQW7IrN8YWWsHJRxOH1EDmLmUIXzUrPsIohgSIWbTSMfuj3OYQOsIUCwRUL1TRFpKZVdOKZuJVbq FSWmEQPjSaZeHTQfGLYzUE2SHbCqSHDtEvIqMOOdCHWfIHBrxt0JCDAhIGJtWiZ1TfMuJDUqQKLrAPsm OWNfZTYtPkN6JXYvVOKnRH4QXbRmVAHySbQ1GqJrJO LsDKMxhi6IqMXmtIkkdw6UQRqJYc0TrJqxEZW7UDehHv9ynBKmWjXxYHKJFq7EzvKpFZYbDBAYMHamWP MnBWQ7XVqhM4HqQqLtZSXsMpCaGpFqUVLyBZM5AcIkYMCcIzI6GIi8OIDuASSzWWYhFMV1VWNnXJCeQj ExNTkyZGVhMTA+PQ4eLOm+Cp7Kg8EqdgZ6ptHjZWbqWcByFR0HAQYUQ2MYPk== ID Date Data Source [id number] 09/01/2020 02:54:35 PM [facility] Patient: DIANA OLIVERA : 1955 [facility]: [facility] 1 VIEW Provider: PROMISE LOPEZINICAL [...] rce(s) Supporting Document(s) ID Date Data Source [id number] 09/01/2020 03:12:00 PM EST [facility] Name Value Range Interpretation Code Description Data Sanjuana rce(s) Supporting Document(s) POC SARS-CoV-2 POSITIVE NEGATIVE Very abnormal (applies to non-nu meric units [facility] Performed on the Orellana ID NOW analyzer by rapid molecular methodology. Called To (First Last): ROSALEE Snell/Accreditation of Person Called: RNLocation Called: ICU BED 14Critical Tests and Results Called: COV POSAdditional Tests that were Called: NORead Back (Y/N): YESDate: 09/01/2020Time: 3:12PMPMBy: IAN MANNING First Test No [facility] Employed in healthcare No [facility] Symptomatic as defined by CDC No [facility] Hospitalized Yes [facility] Resident in a congregate care setting Yes [facility] No [facility] Intensive Care Yes [facility] The above 8 analytes were performed by [facility] [address], ,[place] [address] ID Date Data Source [id number] 09/01/2020 02:51:00 PM [facility] Name Value Range Interpretation Code Description Data Sanjuana rce(s) Supporting Document(s) POC Influenza A, RNA NEGATIVE NEGATIVE Normal (applies to n on-numeric results) [facility] Performed on the Orellana ID NOW analyzer by rapid molecular methodology. POC Influenza B, RNA NEGATIVE NEGATIVE Normal (applies to n on-numeric results) [facility] Performed on the Orellana ID NOW analyzer by rapid molecular methodology. The above 2 analytes were performed by [facility] [id number] [place] [address], ,[place] [address] ID Date Data Source [id number] 09/01/2020 04:43:00 PM EST [facility] Name Value Range Interpretation Code Description Data Sanjuana rce(s) Supporting Document(s) Triglycerides 89 mg/dl 30-200 Normal (applies to non-numeric re sults) [facility] N-Acetylcysteine (NAC) and Metamizole villanueva ve the potential to falselydepress Triglyceride results. Baseline values before medication adminstration are recommended.The above 1 analytes were performed by [facility] [id number], ,[place] [address] ID Date Data Source [id number] 09/07/2020 09:52:00 AM [facility] Name Value Range Interpretation Code Description Data Sanjuana rce(s) Supporting Document(s) Culture Result No Growth After 5 Days [facility] The above 1 analytes were performed by [facility] [id number], ,[place] [address] ID Date Data Source [id number] 09/07/2020 09:52:00 AM [facility] Name Value Range Interpretation Code Description Data Sanjuana rce(s) Supporting Document(s) Culture Result No Growth After 5 Days [facility] The above 1 analytes were performed by [facility] [id number], ,[place] [address] ID Date Data Source [id number] 09/01/2020 03:52:00 PM EST [facility] Name Value Range Interpretation Code Description Data Sanjuana rce(s) Supporting Document(s) pH, iSTAT 7.245 7.380-7.460 Below low normal [facility] PCO2, iSTAT 69.8 mm Hg 32.0-46.0 Above upper panic limits [facility] PO2, iSTAT 259.0 mm Hg 74.0-108.0 Above high normal [facility] TCO2, iSTAT 32.0 mMol/L 22.0-30.0 Above high normal [facility] HCO3, iSTAT 30.2 mMol/L 21.0-29.0 Above high normal [facility] BE, iSTAT 3.0 mMol/L -2.0-2.0 Above high normal [facility] SO2, iSTAT 100.0 % 92.0-96.0 Above high normal [facility] Lactate, iSTAT 1.0 mMol/L 0.4-2.0 Normal (applies to non-numeric r esults) [facility] Site R Radial [facility] Mode AC [facility] Delsys Ventilator [facility] [place] 500 [facility] RR(set) 12 [facility] PEEP 5 [facility] RR(total) 12 [facility] FiO2 100 [facility] Site Benign Yes [facility] The above 17 analytes were performed by [facility] [address] [place] [address],[facility] [id number],[place] [address] ID Date Data Source [id number] 09/04/2020 07:59:00 AM EST [facility] 1+ WBCs1+ Epithelial Cells1+ Gram Positi ve Cocci in clustersStaphylococcus aureus [facility] Name Value Range Interpretation Code Description Data Sanjuana rce(s) Supporting Document(s) ID Date Data Source [id number] 09/04/2020 07:59:00 AM EST [facility] 1+ WBCs1+ Epithelial Cells1+ Gram Positi ve Cocci in clustersStaphylococcus aureus [facility] Name Value Range Interpretation Code Description Data Sanjuana rce(s) Supporting Document(s) AMOXICILLIN Results entered -- not verified [facility] AMOXICILLIN/CLAVULANIC ACID Results entered -- not verified [facility] AMPICILLIN/SULBACTAM Results entered -- not mauricio ified [facility] AZITHROMYCIN Results entered -- not verified [facility] CEFAZOLIN Results entered -- not verified [facility] CLINDAMYCIN Results entered -- not verified [facility] ERYTHROMYCIN Results entered -- not verified [facility] GENTAMICIN Susceptible. Indicates for microbiol ogy susceptibilities only. [facility] LEVOFLOXACIN Results entered -- not verified [facility] LINEZOLID Susceptible. Indicates for microbiol ogy susceptibilities only. [facility] OXACILLIN Results entered -- not verified [facility] RIFAMPIN Susceptible. Indicates for microbiol ogy susceptibilities only. [facility] TETRACYCLINE Results entered -- not verified [facility] TRIMETHOPRIM/SULFA Susceptible. Indicates for microbiology susceptibilities only. [facility] VANCOMYCIN Susceptible. Indicates for microbiol ogy susceptibilities only. [facility] The above 20 analytes were performed by [facility] [id number], ,[place] [address] ID Date Data Source [id number] 09/01/2020 02:35:00 PM EST [facility] Name Value Range Interpretation Code Description Data Sanjuana rce(s) Supporting Document(s) Urine Color Yellow Light-Yellow,Yellow Normal (applies to no n-numeric results) [facility] Urine Appearance CLEAR CLEAR Normal (applies to non-numeric results) [facility] Urine Specific [place] 1.019 1.015-1.025 Normal (a pplies to non-numeric results) [facility] Urine pH 5.5 5.0-7.0 Normal (applies to non-numeric resul ts) [facility] Urine Protein 1+ NEG Abnormal (applies to non-numeric results) [facility] Urine Glucose 2+ NEG Abnormal (applies to non-numeric results) [facility] Urine Ketone 1+ NEG Abnormal (applies to non-numeric r esults) [facility] Urine Bilirubin NEG NEG Normal (applies to non-numeric results) [facility] Urine Blood NEG NEG Normal (applies to non-numeric resu lts) [facility] Urine Urobilinogen NORM <0.2,1.0,<2.0,0.2 Abnormal (a pplies to non-numeric results) [facility] Urine Leukocyte Esterase NEG NEG Normal (applies to non -numeric results) [facility] Urine Nitrite NEG NEG Normal (applies to non-numeric re sults) [facility] Urine WBC 3 /hpf 0-2 Above high normal [facility] Urine RBC 11 /hpf 0-2 Above high normal [facility] Mucous SLIGHT /lpf NEG,[none] Abnormal (applies to non-numeric re sults) [facility] Granular Cast 4 /lpf 0-1 Above high normal [facility] The above 16 analytes were performed by [facility] [id number], ,[place] [address] ID Date Data Source [id number] 09/01/2020 01:35:00 PM EST [facility] Name Value Range Interpretation Code Description Data Sanjuana rce(s) Supporting Document(s) Glucose, Fingerstick 256 mg/dl 70-110 Above high normal [facility] The above 1 analytes were performed by [facility] [id number] [facility], ,[place] [address] ID Date Data Source [id number] 09/01/2020 09:34:00 AM [facility] [address] [place] [address] PHONE: [phone] FAX: [phone] Name .................. : JAROD Ross Acct Number.................. : [id number] ROOM. ................. : [id number] Number ................... : [id number] Stay type ............. : I/P Discharge Date......... ... : Admit Date ......... : 08/31/20 Admit Phys .................... : VANESA Date of ....... : 1955 Family Phys ................... : ADY Phone .................. : [phone] Age ................................ : 65 Film# .................. .:[id number] Sex ................................. : M Unsigned transcriptions are preliminary reports and do not represent a medical or legal document CHEST PORTABLE [id number] COMPLETE:08/31/20 09:48 4355 Reason(s): Shortness of Breath [...] MD , 09/01/20 09:34, AML Transcribe Initials: [facility], Transcribe Date: 08/31/20 13:12, Dictation Date: Copy for: 002 [facility] Copy for: 710 [facility] REC Page 1 of 1 Name Value Range Interpretation Code Description Data Sanjuana rce(s) Supporting Document(s) ID Date Data Source [id number] 09/01/2020 10:20:00 AM EST [facility] Name Value Range Interpretation Code Description Data Sanjuana rce(s) Supporting Document(s) FiO2 70% FIO2 [facility] SITE BRACHIAL LT [facility] pH of Arterial blood 7.24 7.34 - 7.44 L [facility] Carbon dioxide [Partial pressure] in Blood 67.5 mm/HG 35.0 - 45.0 H [facility] Oxygen [Partial pressure] in Blood 81.0 mm/HG 75.0 - 100 [facility] Bicarbonate [Moles/volume] in Blood 28.5 meq/L 22.0 - 26.0 [facility] TCO2 30.5 meq/L 23.0 - 27.0 [facility] Base excess in Blood by calculation 0.1 -2.0 - 2.0 [facility] O2 SAT 93.3 % 95.0 - 98.0 [facility] ID Date Data Source [id number] 09/01/2020 09:38:00 AM EST [facility] [address] [place] [address] PHONE: [phone] FAX: [phone] Name .................. : JAROD Ross Acct Number.................. : [id number] [facility] ................. [facility] Number ................... : [id number] Stay type ............. : I/P Discharge Date......... ... : Admit Date ......... : 08/31/20 Admit Phys .................... : MICHELLEAMOS Date of ....... : 1955 Family Phys ................... : ADY Phone .................. : [phone] Age ................................ : 65 Film# .................. .:[id number] Sex ................................. : M Unsigned transcriptions are preliminary reports and do not represent a medical or legal document CHEST PORTABLE [id number] COMPLETE:09/01/20 06:59 RLB 4418 (REASON FOR CHEST: [...] 09/01/20 07:50, Dictation Date: Copy for: 002 [facility] Copy for: [address] [facility] Page 1 of 1 Name Value Range Interpretation Code Description Data Sanjuana rce(s) Supporting Document(s) ID Date Data Source [id number] 09/01/2020 10:40:00 AM [facility] Name Value Range Interpretation Code Description Data Sanjuana rce(s) Supporting Document(s) TROPONIN T <0.01 NG/ML 0.00 - 0.10 [facility] TROPONIN T0.1 ng/ml Recommended as the c linical threshold value forTroponin T. ID Date Data Source [id number] 09/01/2020 10:33:00 AM [facility] Name Value Range Interpretation Code Description Data Sanjuana rce(s) Supporting Document(s) BNP 858 PG/ML 0 - 125 H [facility] ID Date Data Source [id number] 09/01/2020 09:29:00 AM [facility] Name Value Range Interpretation Code Description Data Sanjuana rce(s) Supporting Document(s) Lactate [Moles/volume] in Serum or Plasma 1.6 MMOL/L 0.2 - 2.2 [facility] ID Date Data Source [id number] 09/01/2020 06:54:00 AM [facility] Name Value Range Interpretation Code Description Data Sanjuana rce(s) Supporting Document(s) FiO2 50% [facility] SITE BRACHIAL LT [facility] ital pH of Arterial blood 7.25 7.34 - 7.44 L [facility] Carbon dioxide [Partial pressure] in Blood 68.5 mm/HG 35.0 - 45.0 H [facility] Oxygen [Partial pressure] in Blood 59.5 mm/HG 75.0 - 100 L [facility] Bicarbonate [Moles/volume] in Blood 29.5 meq/L 22.0 - 26.0 H [facility] TCO2 31.6 meq/L 23.0 - 27.0 [facility] Base excess in Blood by calculation 1.1 -2.0 - 2.0 [facility] O2 SAT 85.6 % 95.0 - 98.[address] [facility] ital ID Date Data Source [id number] 09/01/2020 07:26:00 AM EST [facility] Name Value Range Interpretation Code Description Data Sanjuana rce(s) Supporting Document(s) CBC W/AUTOMATED DIFF [facility] COMPLETE BLOOD COUNT Leukocytes [#/volume] in Blood by Automated count 14.1 10^3/uL 4.2 - 11.0 H [facility] Erythrocytes [#/volume] in Blood by Automated count 4.61 10^6/uL 4. 50 - 6.30 [facility] Hemoglobin [Mass/volume] in Blood 11.5 g/dL 14.0 - 16.0 L [facility] Hematocrit [Volume Fraction] of Blood by Automated count 38.8 % 4 1.0 - 51.0 L [facility] Erythrocyte mean corpuscular volume [Entitic volume] by Auto mated count 84.2 fL 80.0 - 94.0 [facility] Erythrocyte mean corpuscular hemoglobin [Entitic mass] by Automated count 24.9 pg 27.0 - 34.0 L [facility] Erythrocyte mean corpuscular hemoglobin concentration [Mass/volume] by Automated count 29.6 g/dL 31.0 - 36.0 L [facility] Erythrocyte distribution width [Ratio] by Automated count 19.0 % 11.5 - 14.8 H [facility] Platelets [#/volume] in Blood by Automated count 115 10^3/uL 150 - 45 0 L [facility] Platelet mean volume [Entitic volume] in Blood by Automated count 10.5 fL 7.4 - 10.4 H [facility] Neutrophils/100 leukocytes in Blood by Automated count 89.5 % 37. 0 - 80.0 H [facility] Lymphocytes/100 leukocytes in Blood by Manual count 3.0 % 25.0 - 40.0 L [facility] Monocytes/100 leukocytes in Blood by Automated count 6.1 % 3.0 - 8.0 [facility] Eosinophils/100 leukocytes in Blood by Automated count 0.1 % 0.0 - 7.0 [facility] Basophils/100 leukocytes in Blood by Automated count 0.3 % 0.0 - 2.0 [facility] %IG 1.0 % 0.0 - 0.0 [facility] %NRBC 0.0 % 0.0 - 0.0 [facility] Neutrophils [#/volume] in Blood by Automated count 12.58 10^3/uL 2. 00 - 6.90 H [facility] Lymphocytes [#/volume] in Blood by Automated count 0.42 10^3/uL 0.60 - 3.40 L [facility] Monocytes [#/volume] in Blood by Automated count 0.86 10^3/uL 0.00 - 0.90 [facility] Eosinophils [#/volume] in Blood by Automated count 0.02 10^3/uL 0.00 - 0.70 [facility] Basophils [#/volume] in Blood by Automated count 0.04 10^3/uL 0.00 - 0.20 [facility] #IG 0.14 10^3/uL 0.00 - 0.10 [facility] #NRBC 0.00 10^3/uL 0.00 - 0.00 [facility] ospital MANUAL DIFF NOT INDICATED [facility] RBC MORPH SEE BELOW [facility] Poikilocytosis [Presence] in Blood by Light microscopy 1+ NOR MAL: NONE SEEN A [facility] { SICKLE CELL (NORMAL: NONE SEEN ) Platelet adequacy [Presence] in Blood by Light microscopy CL UMPED NORMAL: NORMAL [facility] OCC PLATELET CLUMPS COMMENT: ID Date Data Source [id number] 09/01/2020 06:56:00 AM EST [facility] Name Value Range Interpretation Code Description Data Sanjuana rce(s) Supporting Document(s) BASIC METABOLIC PANEL [facility] CORRECTE D REPORT BASIC METABOLIC PANEL Sodium [Moles/volume] in Serum or Plasma 135 mEq/L 134 - 153 [facility] Potassium [Moles/volume] in Serum or Plasma 5.2 mEq/L 3.6 - 5.0 H [facility] SLIGHTLY HEMOLYZED Chloride [Moles/volume] in Serum or Plasma 99 mEq/L 98 - 107 [facility] Carbon dioxide, total [Moles/volume] in Serum or Plasma 28 MEQ/L 22 - 30 [facility] Glucose [Mass/volume] in Serum or Plasma 216 MG/DL 70 - 99 H [facility] BUN 23 MG/DL 7 - 21 [facility] Creatinine [Mass/volume] in Serum or Plasma 0.8 MG/DL 0.7 - 1.5 [facility] BUN/CREAT 29 8 - [address] [facility] Calcium [Mass/volume] in Serum or Plasma 9.0 MG/DL 8.4 - 10.2 [facility] Anion gap 3 in Serum or Plasma 8.0 mmol/L 8.0 - 16.0 [facility] 65 yrs [facility] AFR AMER GFR 125 mL/min [facility] NON-AA GFR 103 mL/min [facility] Male GFR Inter prentation 20-49 [...] CORRECT YES{ CORRECT ID Date Data Source [id number] 09/01/2020 06:55:00 AM [facility] Name Value Range Interpretation Code Description Data Sanjuana rce(s) Supporting Document(s) Magnesium [Mass/volume] in Serum or Plasma 1.5 MG/DL 1.7 - 2.2 L [facility] ID Date Data Source [id number] 08/31/2020 10:30:00 PM [facility] [address] [place] [address] RESPIRATORY CARE REPORT ==== ---------NAME------- NUMBER SEX AGE ADMIT DISC. XRAY# F/C CARLTON Ross [id number] M 65 08/31/20 [id number] M4 I/P DATE OF : 1955 M/R# [id number] #: [id number] LOCATION: EMERGENCY DEPT EKG [id number] COMP LETE:08/31/20 10:37 [place] [id number] PHYSICIAN: VANESA ACUNA Name Value Range Interpretation Code Description Data Sanjuana rce(s) Supporting Document(s) ID Date Data Source [id number] 08/31/2020 09:33:00 AM EST [facility] 1 OrderSheet [facility] Emergency Department [address] [place] [address] Phone #: ext- [phone] 08/31/2020 09:32 Patient: [...] STAT 09:48 08/31/2020 10:00 Kelsey, 2 OrderSheet [facility] Emergency Department [address] [place] [address] Phone #: ext- [phone] 08/31/2020 09:32 Patient: DIANA OLIVERA Sex: M : 1955 Age: 1ng86d X2 (Sched Rigo Ge RN09:58 08/31/2020) Geraldine;COVID-19 CAH STAT 09:49 08/31/2020 10:06 Christopher(Symptomatic as Rigo Ge R.N.Defined by CDC) Geraldine;(08/31/2020) (NotFirst Test) (NotHospitalized) (Not)(Resident inCongregate CareSetting) (NotEmployed inHealthcare Setting)DIAGNOSTIC STUDY ORDERSOrder Description Priority Entered Acknowledged InitialedChest Portable 1 STAT 09:48 08/31/2020 09:59 Antoinette Cole (Oxygen? Rigo Ge RN(Yes)) Geraldine; Reason for Study: Shortness of BreathMEDICATION/IV/DRIP/FLUID ORDERSOrder Description Priority Entered Acknowledged InitialedNS IV : Bolus 250 09:48 08/31/2020 10:42 Christopher,mL, then 100 mL/hr Rigo Ge R.N. M.DElizabeth;Zofran 4 mg IVP X 1 09:51 08/31/2020 10:42 Christopher,dose: 4 mg (NOW Miriam, Rigo Infante R.N.x1) Geraldine;Doxycycline PO 11:59 08/31/2020 12:10 Christopher,100 mg Rigo Ge R.N. M.DElizabeth; Reason for ordering with alerts: Clinical consideration given -- 11:59 08/31/2020 Rigo eG M.D.GENERAL ORDERSOrder Description Priority Entered Acknowledged InitialedBlood Pressure 09:48 08/31/2020 09:59 Kelsey,Monitor Rigo Ge RN, M.D.;Radiological Equipment Specialist 09:48 08/31/2020 09:59 Kelsey,(continuous) Rigo Ge RN 3 OrderSheet [facility] Emergency Department [address] [place] [address] Phone #: ext- [phone] 08/31/2020 09:32 Patient: [...] 08/31/2020 09:59 Kelsey(NC) (Titrate to O2 Rigo Ge RNSat >92%) Geraldine;Oxygen titrate to 09:48 08/31/2020 09:59 [...] White R.N. (14:09 08/31/2020)][Electronically signed by Rigo Ge M.D. (14:30 08/31/2020)][Electronically locked by Arelis White R.N. (14:09 08/31/2020)] Name Value Range Interpretation Code Description Data Sanjuana rce(s) Supporting Document(s) ID Date Data Source [id number] 08/31/2020 09:33:00 AM EST [facility] 1 Medication Reconciliation Report [facility] Emergency Department [address] [place] [address] Phone #: ext- [phone] 08/31/2020 09:32 Patient: [...] day HumaLOG Subcutaneous 2 Medication Reconciliation Report [facility] Emergency Department [address] [place] [address] Phone #: ext- [phone] 08/31/2020 09:32 Patient: [...] source(s) of the original Home Medication information:patient's mcc recordThe following Medications were given to the patient in the Emergency Department:NS [IV] IV Fluids bolus 0, then 100 mL/hr, administered: 10:42 08/31/2020Zofran [IVP] IVP 4 mg, administered: 10:42 08/31/2020oxycycline [PO] PO 100 mg, administered: 12:10 08/31/2020The following Medications were prescribed to the patient:None. 3 Medication Reconciliation Report [facility] Emergency Department [address] [place] [address] Phone #: ext- [phone] 08/31/2020 09:32 Patient: DIANA OLIVERA Sex: M : 1955 Age: 65y Name Value Range Interpretation Code Description Data Sanjuana rce(s) Supporting Document(s) ID Date Data Source [id number] 08/31/2020 09:33:00 AM EST [facility] 1 Medication Administration Record [facility] Emergency Department [address] [place] [address] Phone #: ext- [phone] 08/31/2020 09:32 Patient: DIANA OLIVERA Sex: M : 1955 Age: 65yWeight: 80.7 kgHeight/Length: 72 inBMI: 24.2ALLERGIES: No Known Drug Allergy Date/Time Medication Administered Medication OrderedStart NS [IV] NS IV : Bolus 250 mL, then 59838:42 08/31/2020 Dose: IV Fluids mL/hrArelis White R.N. Rate: 100 mL/hr---- Dispensed: 250 mL bagContinued Upon Disposition Site: #1 right AC14:00 08/31/2020Arelis White R.N.Given ZOFRAN [IVP] (ONDANSETRON HCL) Zofran 4 mg IVP X 1 dose: 4 mg10:42 08/31/2020 Dose: 4 mg IVP (NOW x1)Arelis White R.N. Site: #1 right ACGiven DOXYCYCLINE [PO] Doxycycline PO 100 mg12:10 08/31/2020 Dose: 100 mg POWArelis grace R.N. Name Value Range Interpretation Code Description Data Sanjuana rce(s) Supporting Document(s) ID Date Data Source [id number] 08/31/2020 09:33:00 AM [facility] 1 General Instructions [facility] Emergency Department [address] [place] [address] Phone #: ext- [phone] 08/31/2020 09:32 Patient: DIANA OLIVERA Sex: M : 1955 Age: 65yVomiting with nausea (resolved).Acute generalized weakness.S/P Covid-19 Pneumoniae (08-10-20).(Electronically signed by Rigo Ge M.D. 08/31/2020 14:30) Name Value Range Interpretation Code Description Data Sanjuana rce(s) Supporting Document(s) ID Date Data Source [id number] 08/31/2020 09:33:00 AM [facility] 1 Clinical Report - Nurses [facility] Emergency Department [address] [place] [address] Phone #: ext- [phone] 08/31/2020 09:32 Patient: DIANA OLIVERA Sex: M : 1955 Age: 65yTRIAGE Arrived by EMS. Historian: EMS, m[facility] nurse and patient. ( presents from [facility] with c/o not feeling well, nausea, vomiting, low BP, low sats, started yesterday and was suppose to get IV fluids, etc but didn't WBC count was 21,0000, Dr. Bliss called and spoke to MD). Triage time: 09:33 08/31/2020. Acuity: LEVEL 3. Chief Complaint: (nausea, vomiting, low BP, low sats). ABNORMAL LAB (elevated WBC). Alert. No acute distress. This started yesterday. Treatment OPTICIAN APPRENTICE DISPENSING: None. SEPSIS SCREEN: SIRS SCREEN POSITIVE: WBC [...] a day after meals. --09:50 08/31/20 Rachael Cole RN Amiodarone HCL Oral 200 mg, 2x a [...] Magnesia Oral. 2 Clinical Report - Nurses [facility] Emergency Department [address] [place] [address] Phone #: ext- [phone] 08/31/2020 09:32 Patient: DIANA OLIVERA Sex: M : 1955 Age: 65yMultivitamins Oral.oxyCODONE HCl Oral 5 mg, q6h as needed.Pantoprazole Sodium Oral 40 mg, daily.ProAir HFA Inhalation.Senna Oral (Capsule 8.6 mg) 1 capsule, 2x a day.Zinc Oral (Capsule 220 (50 Zn) mg) 1 capsule, daily. --09:50 08/31/20 Kelsey Rachael, RNAscorbic Acid Oral (Tablet 500 mg), 2x a day. --09:51 08/31/20 Kelsey, Rachael, RNCholecalciferol Oral (Tablet 25 MCG (1000 UT)), [...] Infection.Sleep Apnea. 3 Clinical Report - Nurses [facility] Emergency Department [address] [place] [address] Phone #: ext- [phone] 08/31/2020 09:32 [id number] Sex[facility] M : 1955 Age: 65yTremor.Muscle Strain, Upper Extremity.Hypoxia.Pneumonia.Osteomyelitis. --09:37 08/31/20 Rachael Cole RNPeripheral Vascular Disease.Diabetes Mellitus.Glaucoma.MRSA.Hypertension.Atrial Fibrillation.COPD - Chronic Obstructive Pulmonary Disease.Hemiplegia affecting R.Transient cerebral ischemic attack.Endocarditis. --10:19 08/31/20 Rachael Cole RN.Medication/allergy information source: the patient's mcc record and previous visit record. --09: Rachael [...] no barriers. 4 Clinical Report - Nurses [facility] Emergency Department [address] [place] [address] Phone #: ext- [phone] 08/31/2020 09:32 Patient: DIANA OLIVERA [id number] Sex: M : 1955 Age: 65y FALL [...] RR: 18. O2 saturation: 95%. --10:12 08/31/20 Ransom it desktop support technician, [facility] ER Tech1 10:26 08/31/20. HR: 72. RR: 19. O2 saturation: 100%. --10:27 08/31/20 Ransom it desktop support technician, [facility], Tech1 10:15 08/31/20. 14 fr in/out [...] pump. Allergies 5 Clinical Report - Nurses [facility] Emergency Department [address] [place] [address] Phone #: ext- [phone] 08/31/2020 09:32 Patient: [...] RR: 18. O2 saturation: 94%. --11:00 08/31/20 [place] [id number] 11:27 08/31/20. BP: 122/49. MAP: 73. HR: 68. RR: 16. O2 saturation: 97%. --11:27 08/31/20 [place] [address] Patient waiting for lab results. --11:35 08/31/20 Arelis White R.N. 11:59 08/31/20. BP: 113/43. MAP: 66. HR: 65. RR: 16. O2 saturation: 97%. --11:59 08/31/20 [place] [id number] 12:10 08/31/2020 Doxycycline PO 100 mg given. [...] RR: 16. O2 saturation: 100%. --12:34 08/31/20 [place] [address] 12:59 08/31/20. BP: 115/30. MAP: 58. HR: 64. RR: 16. O2 saturation: 100%. --13:00 08/31/20 [place] [address] 13:30 08/31/20. BP: 118/44. MAP: 68. HR: 45. RR: 10. O2 saturation: 93%. --13:30 08/31/20 Grzegorz it desktop support technicianLisa Solis Tech1.DISPOSITION / DISCHARGE 13:45 08/31/20. Departure time: 13:45 08/31/2020. Condition at departure: stable. Admitted to the Acute Inpatient Unit. Transported via stretcher by nurse with monitor, IV and mask. Report was given to a nurse in person. Report included patient's care, condition, vital signs, labs, medications and IV's. All questions were 6 Clinical Report - Nurses [facility] Emergency Department [address] [place] [address] Phone #: qox- [phone] 08/31/2020 09:32 Patient: DIANA OLIVERA Sex: M : 1955 Age: 65y answered. Report was acknowledged. (ERICA Lopez). --14:09 08/31/[address]utch 14:00 08/31/2020 Site #[address] upon [...] rce(s) Supporting Document(s) ID Date Data Source [id number] 08/31/2020 09:33:00 AM [facility] 1 Clinical Report - Physicians/Mid Levels [facility] Emergency Department [address] [place] [address] Phone #: ext- [phone] 08/31/2020 09:32 Patient: DIANA OLIVERA Sex: M : 1955 Age: 65y Time Seen: 09:37 08/31/2020; initial patient contact. Arrived- By ambulance. Historian- EMS personnel and mcc nurse and records. Disposition decision: 11:56 08/31/2020.HISTORY [...] was transferred from our ER 08-10-20 to [facility] w Covid PNA, test positive, [place] back [place] 08-22-20 w negative Covid test; yesterday had mild hypoxia, N/V x 2, low BP, had blood work done, WBC [id number]; pt feels okay today). Similar symptoms previously. [...] Hyperthyroidism. 2 Clinical Report - Physicians/Mid Levels [facility] Emergency Department [address] [place] [address] Phone #: ext- [phone] 08/31/2020 09:32 Patient: DIANA OLIVERA Sex: M [...] patch. 3 Clinical Report - Physicians/Mid Levels [facility] Emergency Department [address] [place] [address] Phone #: ext- [phone] 08/31/2020 09:32 Patient: [...] use or drug use. Resides in a mcc.ADDITIONAL NOTES The nursing notes have been reviewed with agreement regarding the chief complaint, HPI, ROS, PMH and patient medica tions and allergies.PHYSICAL EXAM Vital Signs: 08/31/2020 09:33 BP: 110/83. MAP: 92. HR: 72. RR: 14. O2 saturation: 100% on nasal cannula at 2 liters/minute. Temp: 98.3 F. Pain level now: 610. Have been reviewed. Oxygen saturation normal. Appearance: [...] the 4 Clinical Report - Physicians/Mid Levels [facility] Emergency Department [address] [place] [address] Phone #: ext- [phone] 08/31/2020 09:32 Patient: DIANA OLIVERA Sex: M [...] CLEARED MOLECULAR TESTS. NEGATIVE RESULTSDO NOT PRECLUDE [id number] AND SHOULD NOT BE USED THE SOLE BASISFOR PATIENT MANAGEMENT DECISIONS.CBC w Diff: (ILEANA: 08/31/2020 10:05) ( MsgRcvd 08/31/2020 11:24) Final results Test Result Flag [...] 5.0) 5 Clinical Report - Physicians/Mid Levels [facility] Emergency Department [address] [place] [address] Phone #: ext- [phone] 08/31/2020 09:32 Patient: [...] Male GFR Interprentation 20-49 yrs >60 mL/min Qacgmv21-73 yrs >56 mL/min Normal 60-69 yrs >49 mL/min Normal 70-79yrs>42 mL/min Normal 80 and above >35 mL/min Normal Female GFRInterpretation 20-39 yrs >60 mL/min Normal 40-49 yrs >58 mL/minNormal 50-59 yrs >51 mL/min Normal 60-69 yrs >45 mL/min Mfqiwy20-55 yrs >39 mL/min Normal 80 and above >32 mL/min NormalLipase: (ILEANA: 08/31/2020 10:05) ( Mscvd 08/31/2020 11:20) Final results Test Result Flag [...] VenousThrombosis, Pulmonary Embolus, Tissue heart valves, Acute NM Atrial Fibrillation, Valvular heart diseaseand recurrent Systemic Embolism. -International Normalized Ratio (INR): 2.5 - 3.5 forMechanical Prosthetic valve.Troponin-T: (ILEANA: 08/31/2020 10:05) ( [facility] 08/31/2020 11:25) Final results Test Result Flag Units (Reference) TROPONIN T <0.01 NG/ML (0.00 - 0.10) TROPONIN T0.1 ng/ml Recommended as the clinical threshold value forTroponin T.Magnesium: (ILEANA: 08/31/2020 10:05) ( [facility] 08/31/2020 11:20) Final results Test Result Flag Units (Reference) MAGNESIUM 1.5 L MG/DL (1.7 - 2.2)Urinalysis: (ILEANA: 08/31/2020 10:27) ( [facility] 08/31/2020 11:36) Final results Test Result Flag Units (Reference) URINALYSIS URINALYSIS 6 Clinical Report - Physicians/Mid Levels [facility] Emergency Department [address] [place] [address] Phone #: ext- [phone] 08/31/2020 09:32 Patient: [...] (NORMAL: NONE BNP: (ILEANA: 08/31/2020 10:05) ( NdgRcvd 08/31/2020 11:25) Final results Test Result Flag Units (Reference) BNP 269 H PG/ML (0 - 125) Lactic Acid: (ILEANA: 08/31/2020 10:05) ( NdgRcvd 08/31/2020 10:18) Final results Test Result Flag Units (Reference) LACTIC ACID 1.6 MMOL/L (0.2 - 2.2).PROGRESS AND PROCEDURES Course of Care: 11:55 08/31/20. workup all in and reviewed, WBC improved from yesterday, CXR improved from 08-10-20; pt is recuperating from Covid PNA; rapid Covid negative today; case discussed w hospitalist, Wendi Christie, OPERATIONS BUSINESS PARTNER, who will admit for observation. Critical care [...] (08-10-20). 7 Clinical Report - Physicians/Mid Levels [facility] Emergency Department [address] [place] [address] Phone #: ext- [phone] 08/31/2020 09:32 -------- Patient: DIANA OLIVERA Sex: M : 1955 Age: 65y(Electronically signed by Rigo Ge M.D. 08/31/2020 14:30) Name Value Range Interpretation Code Description Data Sanjuana rce(s) Supporting Document(s) ID Date Data Source [id number] 08/31/2020 09:33:00 AM [facility] Addenda for DIANA OLIVERA VisitID: [id number] Date: 12:09Chcarmela Cunningham made aware of med rec request.T-system overview faxed to [employer] @ 2003(Electronically signed by Prem Sam - 08/31/2020 12:09) Name Value Range Interpretation Code Description Data Sanjuana rce(s) Supporting Document(s) ID Date Data Source [id number] 09/02/2020 12:51:00 AM [facility] AEROBIC [id number] TO CORNELIUS ([facility]) 09/02 AT 0050 BY JAH. RESULT READBACK.The [...] multiple mechanisms.A Not detected result for the Nugg-itArray antimicrobialresistance gene assays does not indicate antimicrobialsusceptibility. Subculturing and standard susceptibilitytesting of isolates is requried to determine antimicrobialsusceptibility.Results from this test must be correlated with the clinicalhistory, epidemiological data,and otherdata available to theclinician evaluating the patient.Enterococcus detected Name Value Range Interpretation Code Description Data Sanjuana rce(s) Supporting Document(s) ID Date Data Source [id number] 09/03/2020 01:46:00 PM EST [facility] Name Value Range Interpretation Code Description Data [facility] rce(s) Supporting Document(s) CULTURE BLOOD [facility] _CULTURE BLOOD_ [place] [address] CLIA# [id number] SEE SCANNED REPORTG+ COCCI IN CHAINS POS ENTERCOCCUS SPCALLED TO [facility]){ PRELIM EDGAR 09-02-20 0050 ID Date Data Source [id number] 08/31/2020 11:06:00 AM [facility] Name Value Range Interpretation Code Description Data [facility] rce(s) Supporting Document(s) [facility] S[facility] R [facility] COLOR yellow NORMAL: [facility] CLARITY clear NORMAL: [facility] Specific gravity of Urine by Test strip 1.020 1.001 - 1.030 [facility] pH 5 5 - 9 [facility] Glucose [Mass/volume] in Urine by Test strip 50 NORMAL: Negat [facility] Bilirubin.total [Presence] in Urine by Test strip NEG NORMAL: Negative [facility] Ketones [Presence] in Urine by Test strip NEG NORMAL: Negative [facility] Protein [Mass/volume] in Urine by Test strip 100 [facility] Nitrite [Presence] in Urine by Test strip NEG NORMAL: Negative [facility] BLOOD NEG NORMAL: Negative [facility] Leukocyte esterase [Presence] in Urine by Test strip NEG SUSAN L: Negative [facility] Urobilinogen [Mass/volume] in Urine by Test strip NOR less ben n 1.0 mg/dL [facility] MICROSCOPIC [facility] WBC 1 - 3 NORMAL: NONE SEEN [facility] Erythrocytes [#/volume] in Urine by Test strip 0 - 1 NORMAL: NON E SEEN [facility] ID Date Data Source [id number] 09/03/2020 07:59:00 AM [facility] [id number] Name Value Range Interpretation Code Description Data Sanjuana rce(s) Supporting Document(s) Ampicillin [Susceptibility] by Minimum inhibitory concentration (LUIS A) <2 Susceptible. Indicates for microbiology susceptibilities only. [facility] Ciprofloxacin [Susceptibility] by Minimum inhibitory concentrati on (LUIS A) >2 Resistant. Indicates for microbiology susceptibilities only. [facility] Erythromycin [Susceptibility] by Minimum inhibitory concentratio n (LUIS A) >4 Resistant. Indicates for microbiology susceptibilities only. [facility] Penicillin [Susceptibility] by Minimum inhibitory concentration (LUIS A) 2 Susceptible. Indicates for microbiology susceptibilities only. [facility] Tetracycline [Susceptibility] by Minimum inhibitory concentratio n (LUIS A) >8 Resistant. Indicates for microbiology susceptibilities only. [facility] Vancomycin [Susceptibility] by Minimum inhibitory concentration (LUIS A) 2 Susceptible. Indicates for microbiology susceptibilities only. [facility] Levofloxacin [Susceptibility] by Minimum inhibitory concentratio n (LUIS A) >4 Resistant. Indicates for microbiology susceptibilities only. [facility] ID Date Data Source [id number] 09/05/2020 06:29:00 PM EST [facility] [id number] Name Value Range Interpretation Code Description Data Sanjuana rce(s) Supporting Document(s) Bacteria identified in Blood by Culture [facility] NO GROWTH AFTER 5 DAYS ID Date Data Source [id number] 09/06/2020 10:16:00 AM [facility] Name Value Range Interpretation Code Description Data Sanjuana rce(s) Supporting Document(s) CULTURE BLOOD [facility] spital _CULTURE BLOOD_{ PRELIM TEST PERFORMED AT [id number] [place] [address] CLIA# [id number] SEE SCANNED REPORT ID Date Data Source [id number] 08/31/2020 03:21:00 PM [facility] Name Value Range Interpretation Code Description Data Sanjuana rce(s) Supporting Document(s) C reactive protein [Mass/volume] in Serum or Plasma by High sensitivity method 249.18 MG/L 1.00 - 3.00 H [facility] HS-CRP CUT-OFF: RELATIVE RISK: <1.0 mg/L Low 1.0 - 3.0 mg/L Average >3.0 mg/L High Optimally, the average of HS-CRP results repeated two weeks apart should be used for risk assessment. ID Date Data Source [id number] 08/31/2020 11:01:00 AM [facility] Name Value Range Interpretation Code Description Data Sanjuana rce(s) Supporting Document(s) Prothrombin time (PT) 14.7 SECONDS 11.0 - 15.5 [facility] INR in Platelet poor plasma by Coagulation assay 1.09 0.93 - 1. 23 [facility] aPTT in Blood by Coagulation assay 42.2 SECONDS 24.8 - 36.7 H [facility] \\BLDo\\INR INTERPRETATION\\BLDx\\ Therapeutic range for Coumadin and related oral anticoagulants. - International Normalized Ratio (INR): 2.0 - 3.0 for Venous Thrombosis, Pulmonary Embolus, Tissue heart valves, Acute NM Atrial Fibrillation, Valvular heart disease and recurrent Systemic Embolism. - International Normalized Ratio (INR): 2.5 - 3.5 for Mechanical Prosthetic valve. ID Date Data Source [id number] 08/31/2020 10:48:00 AM [facility] Name Value Range Interpretation Code Description Data Sanjuana rce(s) Supporting Document(s) BNP 269 PG/ML 0 - 125 [facility] ID Date Data Source [id number] 08/31/2020 10:48:00 AM [facility] Name Value Range Interpretation Code Description Data Sanjuana rce(s) Supporting Document(s) TROPONIN T <0.01 NG/ML 0.00 - 0.10 [facility] ospital TROPONIN T0.1 ng/ml Recommended as the c linical threshold value forTroponin T. ID Date Data Source [id number] 08/31/2020 10:47:00 AM EST [facility] Name Value Range Interpretation Code Description Data Sanjuana rce(s) Supporting Document(s) CBC W/AUTOMATED DIFF [facility] COMPLETE BLOOD COUNT Leukocytes [#/volume] in Blood by Automated count 14.6 10^3/uL 4.2 - 11.0 H [facility] Erythrocytes [#/volume] in Blood by Automated count 4.72 10^6/uL 4. 50 - 6.30 [facility] Hemoglobin [Mass/volume] in Blood 11.8 g/dL 14.0 - 16.0 L [facility] Hematocrit [Volume Fraction] of Blood by Automated count 38.7 % 4 1.0 - 51.0 L [facility] Erythrocyte mean corpuscular volume [Entitic volume] by Auto mated count 82.0 fL 80.0 - 94.0 [facility] Erythrocyte mean corpuscular hemoglobin [Entitic mass] by Automated count 25.0 pg 27.0 - 34.0 L [facility] Erythrocyte mean corpuscular hemoglobin concentration [Mass/volume] by Automated count 30.5 g/dL 31.0 - 36.0 L [facility] Erythrocyte distribution width [Ratio] by Automated count 19.2 % 11.5 - 14.8 H [facility] Platelets [#/volume] in Blood by Automated count 136 10^3/uL 150 - 45 0 L [facility] Platelet mean volume [Entitic volume] in Blood by Automated count 9.6 fL 7.4 - 10.4 [facility] Neutrophils/100 leukocytes in Blood by Automated count 84.7 % 37. 0 - 80.0 H [facility] Lymphocytes/100 leukocytes in Blood by Manual count 6.5 % 25.0 - 40.0 L [facility] Monocytes/100 leukocytes in Blood by Automated count 7.1 % 3.0 - 8.0 [facility] Eosinophils/100 leukocytes in Blood by Automated count 0.4 % 0.0 - 7.0 [facility] 0.5 %IG 0.8 % 0.0 - 0.[address] [facility] %NRBC 0.0 % 0.0 - 0.0 [facility] al Neutrophils [#/volume] in Blood by Automated count 12.40 10^3/uL 2. 00 - 6.90 H [facility] Lymphocytes [#/volume] in Blood by Automated count 0.95 10^3/uL 0.60 - 3.40 [facility] Monocytes [#/volume] in Blood by Automated count 1.04 10^3/uL 0.00 - 0.90 H [facility] Eosinophils [#/volume] in Blood by Automated count 0.06 10^3/uL 0.00 - 0.70 [facility] Basophils [#/volume] in Blood by Automated count 0.07 10^3/uL 0.00 - 0.20 [facility] #IG 0.11 10^3/uL 0.00 - 0.10 [facility] #NRBC 0.00 10^3/uL 0.00 - 0.00 [facility] MANUAL DIFF SEE BELOW [facility] Segmented neutrophils/100 leukocytes in Blood by Manual count 87 % 37 - 80 H [facility] BAND 0 % 0 - 5 [facility] %LYMPH 7 % 25 - 40 L [facility] %MONO 6 % 3 - 8 [facility] %EOS 0 % 0 - 7 [facility] 0 RBC MORPH NOT INDICATED [facility] ID Date Data Source [id number] 08/31/2020 10:36:00 AM [facility] Name Value Range Interpretation Code Description Data Sanjuana rce(s) Supporting Document(s) Magnesium [Mass/volume] in Serum or Plasma 1.5 MG/DL 1.7 - 2.2 L [facility] ID Date Data Source [id number] 08/31/2020 10:36:00 AM [facility] Name Value Range Interpretation Code Description Data Sanjuana rce(s) Supporting Document(s) Lipase [Enzymatic activity/volume] in Serum or Plasma 12 U/L 13 - 60 L [facility] ID Date Data Source [id number] 08/31/2020 10:36:00 AM [facility] Name Value Range Interpretation Code Description Data Sanjuana rce(s) Supporting Document(s) COMPREHENSIVE METABOLIC PANEL [facility] COMPREHENSIVE METABOLIC PANEL Sodium [Moles/volume] in Serum or Plasma 135 mEq/L 134 - 153 [facility] Potassium [Moles/volume] in Serum or Plasma 4.7 mEq/L 3.6 - 5.0 [facility] Chloride [Moles/volume] in Serum or Plasma 97 mEq/L 98 - 107 L [facility] Carbon dioxide, total [Moles/volume] in Serum or Plasma 31 MEQ/L 22 - 30 H [facility] Glucose [Mass/volume] in Serum or Plasma 269 MG/DL 70 - 99 H [facility] BUN 26 MG/DL 7 - 21 H [facility] Creatinine [Mass/volume] in Serum or Plasma 0.7 MG/DL 0.7 - 1.5 [facility] BUN/CREAT 37 8 - 27 H [facility] Protein [Mass/volume] in Serum or Plasma 6.2 G/DL 6.3 - 8.2 L [facility] Albumin [Mass/volume] in Serum or Plasma 3.2 G/DL 3.9 - 5.0 L [facility] Globulin [Mass/volume] in Serum by calculation 3.0 GM/DL 2.4 - 3.2 [facility] A/G RATIO 1.1 0.8 - 2.0 [facility] Calcium [Mass/volume] in Serum or Plasma 8.9 MG/DL 8.4 - 10.2 [facility] Bilirubin.total [Mass/volume] in Serum or Plasma <0.7 MG/DL 0.2 - 1.3 [facility] Alkaline phosphatase [Enzymatic activity/volume] in Serum or Plasma 74 U/L 38 - 126 [facility] Aspartate aminotransferase [Enzymatic activity/volume] in Serum or Plasma 29 U/L 5 - 40 [facility] Alanine aminotransferase [Enzymatic activity/volume] in Seru m or Plasma 32 U/L 7 - 56 [facility] Anion gap 3 in Serum or Plasma 7.0 mmol/L 8.0 - 16.0 L [facility]GE [address] [facility] G[facility] >60 mL/min [facility] AFR AMER GFR >60 mL/min [facility] Male GFR In terprentation 20-49 [...] >32 mL/min Normal ID Date Data Source [id number] 08/31/2020 10:18:00 AM [facility] Name Value Range Interpretation Code Description Data Sanjuana rce(s) Supporting Document(s) Lactate [Moles/volume] in Serum or Plasma 1.6 MMOL/L 0.2 - 2.2 [facility] ID Date Data Source [id number] 08/31/2020 10:04:[address] [facility] Name Value Range Interpretation Code Description Data Sanjuana rce(s) Supporting Document(s) COVID19 Case rprt NOT DETECTED [facility] This lab was ordered by [facility] and reported by [facility]. ID Date Data Source [id number] 08/31/2020 10:46:00 AM [facility] NOT DETECTEDNOT DETECTED{ PROC EDURAL CONTROL VALID [...] rce(s) Supporting Document(s) ID Date Data Source [id number] 08/30/2020 07:53:00 PM [facility] Name Value Range Interpretation Code Description Data Sanjuana rce(s) Supporting Document(s) TROPONIN T <0.01 NG/ML 0.00 - 0.10 [facility]spital TROPONIN T0.1 ng/ml Recommended as the c linical threshold value [facility]. ID Date Data Source [id number] 08/30/2020 07:47:00 PM EST [facility] Name Value Range Interpretation Code Description Data Sanjuana rce(s) Supporting Document(s) COMPREHENSIVE METABOLIC PANEL [facility] COMPREHENSIVE METABOLIC PANEL Sodium [Moles/volume] in Serum or Plasma 134 mEq/L 134 - 153 [facility] Potassium [Moles/volume] in Serum or Plasma 5.2 mEq/L 3.6 - 5.0 H [facility] Chloride [Moles/volume] in Serum or Plasma 98 mEq/L 98 - 107 [facility] Carbon dioxide, total [Moles/volume] in Serum or Plasma 22 MEQ/L 22 - 30 [facility] Glucose [Mass/volume] in Serum or Plasma 207 MG/DL 70 - 99 H [facility] BUN 30 MG/DL 7 - [address] [facility] Creatinine [Mass/volume] in Serum or Plasma 0.9 MG/DL 0.7 - 1.5 [facility] BUN/CREAT 33 8 - 27 H [facility] al Protein [Mass/volume] in Serum or Plasma 5.6 G/DL 6.3 - 8.2 L [facility] Albumin [Mass/volume] in Serum or Plasma 3.1 G/DL 3.9 - 5.0 L [facility] Globulin [Mass/volume] in Serum by calculation 2.5 GM/DL 2.4 - 3.2 [facility] A/G RATIO 1.2 0.8 - 2.0 [facility] Calcium [Mass/volume] in Serum or Plasma 8.9 MG/DL 8.4 - 10.2 [facility] Bilirubin.total [Mass/volume] in Serum or Plasma <0.7 MG/DL 0.2 - 1.3 [facility] Alkaline phosphatase [Enzymatic activity/volume] in Serum or Plasma 78 U/L 38 - 126 [facility] Aspartate aminotransferase [Enzymatic activity/volume] in Serum or Plasma 31 U/L 5 - 40 [facility] Alanine aminotransferase [Enzymatic activity/volume] in Seru m or Plasma 27 U/L 7 - 56 [facility] Anion gap 3 in Serum or Plasma 14.0 mmol/L 8.0 - 16.0 [facility] 65 [facility] NON-AA GFR >60 mL/min [facility] AFR AMER GFR >60 mL/min [facility] Male GFR In terprentation 20-49 [...] >32 mL/min Normal ID Date Data Source [id number] 08/30/2020 07:16:00 PM EST [facility] Name Value Range Interpretation Code Description Data Sanjuana rce(s) Supporting Document(s) CBC NO DIFF [facility] COMPLETE BLOOD COUNT Leukocytes [#/volume] in Blood by Automated count 21.3 10^3/uL 4.2 - 11.0 H [facility] Erythrocytes [#/volume] in Blood by Automated count 4.90 10^6/uL 4. 50 - 6.30 [facility] Hemoglobin [Mass/volume] in Blood 12.3 g/dL 14.0 - 16.0 L [facility] Hematocrit [Volume Fraction] of Blood by Automated count 40.2 % 4 1.0 - 51.0 L [facility] Erythrocyte mean corpuscular volume [Entitic volume] by Auto mated count 82.0 fL 80.0 - 94.0 [facility] Erythrocyte mean corpuscular hemoglobin [Entitic mass] by Automated count 25.1 pg 27.0 - 34.0 L [facility] Erythrocyte mean corpuscular hemoglobin concentration [Mass/volume] by Automated count 30.6 g/dL 31.0 - 36.0 L [facility] Erythrocyte distribution width [Ratio] by Automated count 19.6 % 11.5 - 14.8 H [facility] Platelets [#/volume] in Blood by Automated count 175 10^3/uL 150 - 45 0 [facility] Platelet mean volume [Entitic volume] in Blood by Automated count 10.1 fL 7.4 - 10.4 [facility] ID Date Data Source [id number] 08/30/2020 03:52:00 PM EST [facility] Name Value Range Interpretation Code Description Data Sanjuana rce(s) Supporting Document(s) CULTURE SPUTUM [facility] ospital _CULTURE SPUTUM_$$[id number]$$[id number]$$[id number]$$[id number]$$[id number]$$[id number]$$[id number]$$[id number]$$[id number]$ $[id number]$$[id number]$$[id number]$$[id number] DATE/TIME: 08/28/2020 14:07Culture: CULTURE SPUTUM Status: FinalWhite Blood Cells: [id number] Cells: [id number] 1: P1Rare gram positive cocci in pairs, chains, and clusters -- Continued on next page --Patient: JAROD Ross Order: [id number] Page 2Culture: CULTURE SPUTUM Status: Final Gram Stain Evaluation: P1This specimen is of poor quality and is unacceptable for routinebacterial culture. Many squamous epithelial cells (>24/lpf)are seen on Gram stain evaluation, indicative of oropharyngealcontamination (saliva). Notify laboratory within 48 hours ifculture is still desired, or recollect if clinically indicated.P1 Test performed by: [facility] ALVAR[place]O #: [id number] [address] [place] [address] [id number] [facility] [id number] Director : Abilio Ratliff MD NPI #:Photography Editor : 08/30/20.1552.XMT.SENT REF 08/30/20.1552.MD [place] via fax ID Date Data Source [id number] 08/25/2020 09:03:00 AM [facility] Name Value Range Interpretation Code Description Data Sanjuana rce(s) Supporting Document(s) Thyroxine (T4) free index in Serum or Plasma by calculation 1.53 NG/DL 0.93 - 1.70 [facility] ID Date Data Source [id number] 08/25/2020 09:03:00 AM [facility] Name Value Range Interpretation Code Description Data Sanjuana rce(s) Supporting Document(s) Thyrotropin [Units/volume] in Serum or Plasma by Detec tion limit <= 0.05 mIU/L 1.17 uIU/mL 0.47 - 5.01 [facility] ID Date Data Source [id number] 08/25/2020 08:53:00 AM [facility] Name Value Range Interpretation Code Description Data Sanjuana rce(s) Supporting Document(s) Hemoglobin A1c/Hemoglobin.total in Blood 7.4 % 4.4 - 6.1 H [facility] {A1]{HB] ID Date Data Source [id number] 08/25/2020 08:22:00 AM [facility] Name Value Range Interpretation Code Description Data Sanjuana rce(s) Supporting Document(s) CBC NO DIFF [facility] COMPLETE BLOOD COUNT Leukocytes [#/volume] in Blood by Automated count 10.7 10^3/uL 4.2 - 11.0 [facility] Erythrocytes [#/volume] in Blood by Automated count 5.33 10^6/uL 4. 50 - 6.30 [facility] Hemoglobin [Mass/volume] in Blood 13.2 g/dL 14.0 - 16.0 L [facility] Hematocrit [Volume Fraction] of Blood by Automated count 43.1 % 4 1.0 - 51.0 [facility] Erythrocyte mean corpuscular volume [Entitic volume] by Auto mated count 80.9 fL 80.0 - 94.0 [facility] Erythrocyte mean corpuscular hemoglobin [Entitic mass] by Automated count 24.8 pg 27.0 - 34.0 L [facility] Erythrocyte mean corpuscular hemoglobin concentration [Mass/volume] by Automated count 30.6 g/dL 31.0 - 36.0 L [facility] Erythrocyte distribution width [Ratio] by Automated count 19.4 % 11.5 - 14.8 H [facility] Platelets [#/volume] in Blood by Automated count 299 10^3/uL 150 - 45 0 [facility] Platelet mean volume [Entitic volume] in Blood by Automated count 9.9 fL 7.4 - 10.4 [facility] ID Date Data Source [id number] 08/25/2020 09:10:00 AM [facility] Name Value Range Interpretation Code Description Data Sanjuana rce(s) Supporting Document(s) Ferritin [Mass/volume] in Serum or Plasma 293.9 ng/mL 5.0 - 244 H [facility] ID Date Data Source [id number] 08/25/2020 09:09:00 AM [facility] Name Value Range Interpretation Code Description Data Sanjuana rce(s) Supporting Document(s) Magnesium [Mass/volume] in Serum or Plasma 1.6 MG/DL 1.7 - 2.2 L [facility] ID Date Data Source [id number] 08/25/2020 09:09:00 AM [facility] Name Value Range Interpretation Code Description Data Sanjuana rce(s) Supporting Document(s) CVE PANEL [facility] al LIPID PANEL Cholesterol [Mass/volume] in Serum or Plasma 188 MG/DL 131 - 200 [facility] Deprecated Triglyceride [Mass/volume] in Serum or Plasma 161 MG/DL 3 5 - 160 H [facility] HDL 38 MG/DL 29 - 86 [facility] Cholesterol in LDL [Mass/volume] in Serum or Plasma by Direc t assay 125 mg/dL 65 - 175 [facility] Cholesterol.total/Cholesterol in HDL [Mass Ratio] in Serum o r Plasma 4.9 3.4 - 4.9 [facility] LDL/HDL 3.29 1.00 - 3.55 [facility] CVE RISK CHOL/HDL LDL/HDLMEN: 1/2 AVERAGE 3.43 1.00 AVERAGE 4.97 3.55 2X AVERAGE 9.55 6.25 3X AVERAGE 23.99 7.99WOMEN: 1/2 AVERAGE 3.27 1.47 AVERAGE 4.44 3.22 2X AVERAGE 7.05 5.03 3X AVERAGE 11.04 6.14 ID Date Data Source [id number] 08/25/2020 09:09:00 AM EST [facility] Name Value Range Interpretation Code Description Data Sanjuana rce(s) Supporting Document(s) COMPREHENSIVE METABOLIC PANEL [facility] COMPREHENSIVE METABOLIC PANEL Sodium [Moles/volume] in Serum or Plasma 136 mEq/L 134 - 153 [facility] Potassium [Moles/volume] in Serum or Plasma 4.7 mEq/L 3.6 - 5.0 [facility] Chloride [Moles/volume] in Serum or Plasma 99 mEq/L 98 - 107 [facility] Carbon dioxide, total [Moles/volume] in Serum or Plasma 27 MEQ/L 22 - 30 [facility] Glucose [Mass/volume] in Serum or Plasma 189 MG/DL 70 - 99 H [facility] BUN 24 MG/DL 7 - [address] [facility] Creatinine [Mass/volume] in Serum or Plasma 0.7 MG/DL 0.7 - 1.5 [facility] BUN/CREAT 34 8 - 27 H [facility] al Protein [Mass/volume] in Serum or Plasma 6.4 G/DL 6.3 - 8.2 [facility] Albumin [Mass/volume] in Serum or Plasma 3.3 G/DL 3.9 - 5.0 L [facility] Globulin [Mass/volume] in Serum by calculation 3.1 GM/DL 2.4 - 3.2 [facility] A/G RATIO 1.1 0.8 - 2.0 [facility] Calcium [Mass/volume] in Serum or Plasma 9.0 MG/DL 8.4 - 10.2 [facility] Bilirubin.total [Mass/volume] in Serum or Plasma <0.7 MG/DL 0.2 - 1.3 [facility] Alkaline phosphatase [Enzymatic activity/volume] in Serum or Plasma 71 U/L 38 - 126 [facility] Aspartate aminotransferase [Enzymatic activity/volume] in Serum or Plasma 25 U/L 5 - 40 [facility] Alanine aminotransferase [Enzymatic activity/volume] in Seru m or Plasma 23 U/L 7 - 56 [facility] Anion gap 3 in Serum or Plasma 10.0 mmol/L 8.0 - 16.0 [facility] 65 [facility] NON-AA GFR >60 mL/min [facility] AFR AMER GFR >60 mL/min [facility] Male GFR In terprentation 20-49 [...] >32 mL/min Normal ID Date Data Source [id number] 08/25/2020 09:05:00 AM EST [facility] Name Value Range Interpretation Code Description Data Sanjuana rce(s) Supporting Document(s) Iron [Mass/volume] in Serum or Plasma 57 UG/DL 42 - 135 [facility] Iron binding capacity.unsaturated [Mass/volume] in Serum or Plasma 201 UG/DL 112 - 347 [facility] Iron binding capacity [Mass/volume] in Serum or Plasma 258 ug/dL 250 - 450 [facility] Iron saturation [Mass Fraction] in Serum or Plasma 22 % [facility] ID Date Data Source [id number] 08/24/2020 03:41:00 PM [facility] [place] [address] [id number] NOTE FOLLOW UPPATIENT NAME: DIANA OLIVERA PHYSICIAN: KAMLA LANIER, MDAUTHOR: Westley CARCAMO, Samantha. DATE: 08/11/20 MR#: [id number] NOTE DATE: 08/24/20 RM#: [id number] TIME: 1544 [...] rce(s) Supporting Document(s) ID Date Data Source [id number] 08/24/2020 01:21:[address] [id number] SUMMARYPATIENT NAME: DIANA OLIVERA MR#: [id number] PHYSICIAN: KAMLA LANIER MDAUTHOR: Abbie Becerril MD DATE: 08/11/20 #: 2EASTDISCHARGE DATE: : 55Summary of HospitalizationReason for AdmissionSOBHospital Trtajo07-nkcp-bdz male with underlying medical history type 2 diabetes, atrialfibrillation, hypertension [facility] withcomplaints of dyspnea and was obtunded initially but turned around and wasalert and oriented x3. Patient was also diaphoretic and his blood pressureswere initially 90s over 50s but with IV fluids it improved to 97/56. Fever of101.1. Lactic acid normal. [facility] apparently[facility] noted to have O2 sats in the 70s at the [facility]. Patient was placedon 50% Ventimask at [place] [facility] with O2 sats 94 to 95%.Rapid COVID 19 test was positive, and inflammatory markers i.e. ferritin, LDH,CRP were elevated also D-dimer was elevated. Chest x-ray revealed bilateralpneumonia likely from COVID-19. Patient was given remdesivir, dexamethasone,ceftriaxone and azithromycin. Patient is on Eliquis for atrial fibrillation.Patient was recently treated at [facility] from 07/07 to 07/14/2021 withacute on chronic respiratory failure due to suspected COVID 19 viral pneumonia,hospital course was also complicated by staph hominis bacteremia 2 out of 4bottles was treated with 14-day course of IV vancomycin per ID recommendations.[facility] transfer patient to [facility] becausehe did not have any respiratory therapy services.Patient treated with remdesivir, dexamethasone, Hospital course complicatedwith hypoglycemia and hyperglycemia. Insulin doses adjusted. Wound careconsulted for diabetic foot ulcer. Patient treated for MRSA pneumonia.Completed course of IV vancomycin. Anticoagulation continued. Patientinitially on Vapotherm. O2 requirement progressively improved. Patientcurrently on no oxygen. With normal saturation. Tolerating p.o. Comfortable.No respiratory distress. [facility]. COVID-19test negative on August 24, 2020.Diagnoses (Current [...] nditionVital SignsVital Signs-LastResult Date TimeB/P 116/70 08/24 0731Pulse 85 08/24 0831Pulse Ox 96 08/24 0530O2 [...] taking these medications:AMLODIPINE BESYLATE (AMLODIPINE) 10 MG [id number] MILLIGRAM Orally DAILYQty = 0BACLOFEN (BACLOFEN*) 10 MG CQWUBC15 MILLIGRAM Orally THREE TIMES DAILYBISACODYL (Bisacodyl) 10 MG SUPP.RECT10 MILLIGRAM Rectally DAILY NEEDED as needed for ConstipationQty = 0APIXABAN (ELIQUIS*) 2.5 MG TABLET2.5 MILLIGRAM Orally TWICE DAILYQty = 0GABAPENTIN (GABAPENTIN) 600 MG [id number] MILLIGRAM Orally THREE TIMES DAILYQty = 0Zinc Sulfate (Zinc Sulfate) 220 MG [id number] MILLIGRAM Orally DAILYQty = 0PANTOPRAZOLE SODIUM* (Protonix*) 40 MG TABLET.DR40 MILLIGRAM Orally DAILYQty = 30SALMETEROL (Serevent Disk*) 50 MCG BLST.W.DEV0 MICROGRAM Inhalation TWICE DAILYQty = 60Instructions:1 puffAMIODARONE HCL (PACERONE*) 200 MG [id number] MILLIGRAM Orally TWICE DAILYQty = 60DULOXETINE HCL [...] = 90Ascorbic Acid* (Vitamin C*) 500 MG JFRBDB185 MILLIGRAM Orally TWICE DAILYQty = 60ASPIRIN (Aspirin EC) 81 MG TABLET.DR81 MILLIGRAM Orally DAILYCHOLECALCIFEROL (Vitamin D*) 1,000 UNIT TABLET1,000 UNIT Orally DAILYDOCUSATE SODIUM (COLACE) 100 MG GTQKGPO696 MILLIGRAM Orally THREE TIMES DAILYFENTANYL* (Duragesic patch*) 1 EACH PATCH.ZS30454 MICROGRAM Topically D5XAnxhjpcoovw/Dextromethorphan (Robitussin Ntvrf-Difkj-Hqii Dm) 1 EACH NIHWTFF264 MILLIGRAM Orally TWICE DAILYHUMALOG (HUMALOG) 100 UNIT/1 ML VIAL1 UNITS Subcutaneous BEFORE MEALS as needed for SLIDING SCALELactobacillus* (Bacid Caplet*) 1 EACH TABLET1 CAPSULE Orally THREE TIMES DAILY WITH MEALSLATANOPROST (Xalatan*) 2.5 ML DROPS0 MILLILITERS Both Eyes AT BEDTIMEInstructions:1 DropLIDOCAINE (Lidoderm Patch) 1 EACH ADH..PATCH5 PERCENT Externally DAILYInstructions:APPLY TO LEFT HIPMagnesium Oxide (Magox 400) 400 MG YEPUIA606 MILLIGRAM Orally DAILYMetoprolol XL* (Toprol XL*) 50 MG TAB.ER.24H50 MILLIGRAM Orally DAILYMultivit,Ther Iron,Ca,FA & Min (Thera-M Caplet) 1 EACH TABLET1 TABLET Orally DAILYAlbuterol Sulfate (Proair Digihaler) 90 MCG AER.PW.BAS2 Puff Inhalation EVERY 4 HOURS, NEEDED as needed for SOBSennosides (Sen-O-Tab) 8.6 MG TABLET8.6 MILLIGRAM Orally TWICE DAILYStart taking the following new medications:DOXYCYCLINE MONOHYDRATE (Doxycycline Monohydrate) 100 MG HMJCZB063 MILLIGRAM Orally 0600,1800Qty = 6No RefillsCalcium With [...] diabetic regimen perprimary care provider at the [facility].Return to hospital if symptoms worsen. Pressure ulcer precautionTime spent by provider to complete discharge > 30 minutesDATE SIGNED: 08/24/20 Electronically SignedTIME SIGNED: 1333 ABBIE BECERRIL MD Name Value Range Interpretation Code Description Data Sanjuana rce(s) Supporting Document(s) ID Date Data Source [id number] 08/24/2020 01:18:00 PM EST [address] [id number] NAME: DIANA OLIVERA#: [id number] PHYSICIAN: TRELL ARREOLA #: [id number] ADM. DATE: 08/11/20PATIENT : 55 DISCH. DATE: [...] diabetic regimen perprimary care provider at the [facility].Return to hospital if symptoms worsen. Pressure ulcer precautionPriority ItemsUrgent/Important items that need to be addressed at primary care follow-upappointmentFollow up with your Primary care physician in 3 days. Check CBC, CMP withprimary care provider in 3 days. Further adjustment of diabetic regimen perprimary care provider at the [facility].Return to hospital if symptoms worsen. Pressure ulcer precautionDischarge InformationDISCHARGE INFORMATION* Thank you for choosing [facility] and allowing us toserve you* Our Goal is to provide the highest quality of care.* This discharge information is to help you better understand your diagnosisand medication* Avoid taking fdyl-pdi-mpxtpru medicines unless approved by your physician.* Take your medications as prescribed. DO NOT stop any medications unlessapproved first* Weigh yourself daily. Report any gain of 5 lbs in a week* 24 Hour Crisis HOTLINE available: Call [facility] at [phone] 2_ SMOKING CESSATION* Smoking is dangerous to your health. It delays the healing process, andworks against your medications. Not smoking will improve your health* Our hospital participates with the Opt-to-Quit program. You will be contactedafter discharge by the [facility] Smoker's Quitline for support with tobaccocessation. You have the option once contacted to refuse this service.* You can also go online to [email or web address]. Free nicotine replacementsare available Attention* You should [...] tools, or drive.END ENDDICT: 08/24/20 1318 Electronically SignedTRANS:08/24/208 ABBIE BECERRIL MDTRANS BY:[email or web address] SIGNED:08/24/20TIME SIGNED: 1321REPORT COPY TO: Name Value Range Interpretation Code Description Data Sanjuana rce(s) Supporting Document(s) ID Date Data Source [id number] 08/24/2020 08:05:00 AM EST [facility] Name Value Range Interpretation Code Description Data Sanjuana rce(s) Supporting Document(s) FGLU 152 mg/dL 70-110 [facility] ID Date Data Source [id number] 08/24/2020 06:43:00 AM EST [facility] Name Value Range Interpretation Code Description Data Sanjuana rce(s) Supporting Document(s) COVID-19, DOMINICK NEGATIVE NEGATIVE [facility] Methodology: Nucleic Acid AmplificationN egative results should [...] Emergency Use Authorization. ID Date Data Source [id number] 08/24/2020 06:46:00 AM EST [facility] Name Value Range Interpretation Code Description Data Sanjuana rce(s) Supporting Document(s) C-REACTIVE PROT 2.33 mg/dL 0.0-0.49 [facility] ID Date Data Source [id number] 08/24/2020 06:46:00 AM EST [facility] Name Value Range Interpretation Code Description Data Sanjuana rce(s) Supporting Document(s) MAGNESIUM 1.8 mg/dL 1.6-2.6 [facility] ID Date Data Source [id number] 08/24/2020 06:46:00 AM EST [facility] Name Value Range Interpretation Code Description Data Sanjuana rce(s) Supporting Document(s) DENILSON 3.4 mg/dL 2.5-4.5 [facility] ID Date Data Source [id number] 08/24/2020 06:46:00 AM EST [facility] Name Value Range Interpretation Code Description Data Sanjuana rce(s) Supporting Document(s) GLU 158 mg/dL 70-110 [facility] Patients taking Sulfasalazine may have f alsely depressedGlucose levels. Patients taking Sulfapyridine may havefalsely elevated Glucose levels. Patients should be drawnfor Glucose before the initial administration of eitherdrug. BUN 19 mg/dL 7-23 [facility] CRE 0.668 mg/dL 0.500-1.300 [facility] GFR > 60 mL/min [facility] CHLORIDE 105 mmol/L 99-110 [facility] NA 140 mmol/L 136-147 [facility] POTASSIUM 4.8 mmol/L 3.5-5.1 [facility] TCO2 26 mmol/L 20-33 [facility] ANION GAP 13.8 10.0-20.0 [facility] CA 8.3 mg/dL 8.3-10.7 [facility] ALKALINE PHOS 77 U/L 45-117 [facility] TP 5.9 g/dL 6.0-7.8 [facility] ALB 2.4 g/dL 3.5-5.0 [facility] ESRD Dialysis patient Albumin reference range: 2.9-4.4 g/dL GL 3.5 g/dL 2.3-3.5 [facility] A/G 0.7 1.0-2.5 [facility] T. BILIRUBIN 0.3 mg/dL 0.1-1.1 [facility] The Dimension [place] Total Bilirubin is n ot recommended forpatients undergoing treatment with eltrombopag (Promacta)due to the potential for falsely elevated results. ALTI 30 U/L 6-54 [facility] Patients taking Sulfasalazine and/or Sul fapyridine may havefalsely depressed ALT levels. Patients should be drawn forALT before the initial administration of either drug. AST 29 U/L 8-40 [facility] Patients taking Sulfasalazine and/or Sul fapyridine may havefalsely depressed AST levels. Patients should be drawn forAST before the initial administration of either drug. ID Date Data Source [id number] 08/24/2020 05:48:00 AM EST [facility] Name Value Range Interpretation Code Description Data Sanjuana rce(s) Supporting Document(s) WBC 13.12 x10E3/uL 4.0-10.5 [facility] RBC 4.89 x10E6/uL 4.70-6.00 [facility] Hemoglobin 11.9 g/dL 14.0-18.0 [facility] Hematocrit 39.4 % 42.0-52.0 [facility] MCV 80.6 fL 81.0-99.0 [facility] MCH 24.3 pg 27.0-31.0 [facility] MCHC 30.2 g/dL 32.7-35.6 [facility] RDW 19.2 % 11.5-14.0 [facility] Platelet count 321 x10E3/uL 150-450 [facility] MPV 10.1 fl 6.9-9.5 [facility] Neutrophils 68.8 % 34-64 [facility] Lymphocytes 18.4 % 25-45 [facility] Monocytes 9.9 % 1.7-10.6 [facility] Eosinophils 0.8 % 0.4-7.0 [facility] Basophils 0.7 % 0.1-2.0 [facility] Imm. Gran. 1.4 % 0.1-2.0 [facility] Abs. Neutro. 9.01 x10E3/uL 1.2-7.6 [facility] Abs. Lymph. 2.42 x10E3/uL 1.0-3.5 [facility] Abs. Gillespie. 1.30 x10E3/uL 0.1-1.0 [facility] Abs. Eosin. 0.11 x10E3/uL 0.1-0.7 [facility] Abs. Baso. 0.09 x10E3/uL 0.0-0.1 [facility] Abs. Imm. Gran. 0.19 x10E3/uL 0.0-0.1 [facility] ANRBC% 0 % 0 [facility] ID Date Data Source [id number] 08/24/2020 12:00:00 AM EST [facility] Name Value Range Interpretation Code Description Data Sanjuana rce(s) Supporting Document(s) SARS-CoV2 Rapid PCR Negative [facility] This lab was ordered by [facility] and reported by [facility]. ID Date Data Source [id number] 08/24/2020 03:21:00 AM EST [facility] Name Value Range Interpretation Code Description Data Sanjuana rce(s) Supporting Document(s) FGLU 290 mg/dL 70-110 [facility] ID Date Data Source [id number] 08/23/2020 04:54:00 PM EST [facility] Name Value Range Interpretation Code Description Data Sanjuana rce(s) Supporting Document(s) FGLU 204 mg/dL 70-110 [facility] ID Date Data Source [id number] 08/23/2020 02:55:00 PM EST [facility] Exam Number: [id number] OF EXAMINATIO N: 08/23/2020 7:38 ESTCHEST SINGLE VIEWHISTORY: Follow-up pneumoniaTECHNIQUE: Single frontal radiograph of chestCOMPARISON: No prior examinations are available for comparisonFINDINGS:Mediastinum and cardiac silhouette are grossly normal for portabletechnique. Lung fatima and straight chronic appearing interstitialchanges. Subtle residual [...] rce(s) Supporting Document(s) ID Date Data Source [id number] 08/23/2020 11:51:00 AM EST [facility] [address] [id number] NOTEPATIENT NAME: DIANA OLIVERA PHYSICIAN: KAMLA LANIER MDAUTHOR: Aric Maxwell. DATE: 08/11/20 MR#: [id number] NOTE DATE: 08/23/20 RM#: [id number] TIME: 1200 : 55SubjectiveEvents Since Last EntryPatient seen and examined today. Chart reviewed. Patient is doing welloverall in regards to his COVID-19. Patient completed 10 days of IV vancomycindue to MRSA in sputum. Blood cultures are negative. Chest x-ray is pendingfor a.m. This will need follow-up. Our plan is to discharge him back to [facility] on oral antibiotics. Patient has had labile blood sugars. Icontinue further adjustment of long-acting insulin as well as short. Patienthas no respiratory complaints. He is feeling well.Review of SystemsSystems reviewed and negative Constitutional, Integumentary, Eyes, ENT,Respiratory, Cardiovascular, GI, , Musculoskeletal, Jeremías, Endocrine,Neurology, Psych, Allergy/ImmunologyObjectiveVital SignsVital Signs-24 HRS/08/229 2112 2115 2155 0638Temp 98.2 97.8 97.9Pulse 98 90 86 91Resp 20 18 18B/P 122/78 120/71 114/71 115/66B/P MeanPulse Ox 96 92 96O2 Delivery Nasal cannula Nasal cannulaO2 Flow Rate 1L 2CrZ952/08/2359 1001 1001TempPulse 90RespB/P 112/66 112/66 112/66B/P MeanPulse OxO2 DeliveryO2 Flow EvstGpZ9Vtcwmt/OutputIntake/Output Summary 24 hours/ 1900 08/23 0700Intake Total 2370Output Total 2850Balance -480Intake, IV [...] POPantoprazole Sodium (Protonix) 40 MG DAILY POTiotropium [place] (Spiriva) 1 puffDAILY INHAlbuterol Sulfate (Ventolin) 1 [...] normal affect, normal judgementResultsLaboratory DataRecent Labs-24 hours08/22 08/22 08/22 08/23341200 9568 2130 0614ChemistryPOC Glucose (70 - 110 mg/dL) [...] continued constipation. Senna will be giventonight.10. GlaucomaA&PContinue faislrbdagf49. Vitamin D deficiencyA&PContinue vitamin D pmqsibwafx98. DebilityA&PWill need to continue [facility] placement as previous. Repeat Covid testingfor 08/24/20 [...] spent 35 minutesWe will discharge back [facility] negative. Otherwisepossible swing bed placement at [place].Resuscitation status Full codePlan discussed with patient, wifeCase discussed with disease case manager rn, nursing staffDATE SIGNED: 08/23/20 Electronically SignedTIME SIGNED: 1200 ADAM SANABRIA Name Value Range Interpretation Code Description Data Sanjuana rce(s) Supporting Document(s) ID Date Data Source [id number] 08/23/2020 03:07:00 PM EST [facility] Name Value Range Interpretation Code Description Data Sanjuana rce(s) Supporting Document(s) FGLU 145 mg/dL 70-110 [facility] ID Date Data Source [id number] 08/23/2020 08:20:00 AM EST [facility] Name Value Range Interpretation Code Description Data Sanjuana rce(s) Supporting Document(s) FGLU 68 mg/dL 70-110 [facility] ID Date Data Source [id number] 08/22/2020 11:53:00 PM EST [facility] Name Value Range Interpretation Code Description Data Sanjuana rce(s) Supporting Document(s) FGLU 231 mg/dL 70-110 [facility] ID Date Data Source [id number] 08/22/2020 09:50:00 PM EST [facility] Name Value Range Interpretation Code Description Data Sanjuana rce(s) Supporting Document(s) FGLU 118 mg/dL 70-110 [facility] ID Date Data Source [id number] 08/22/2020 06:49:00 PM EST [facility] Name Value Range Interpretation Code Description Data Sanjuana rce(s) Supporting Document(s) FGLU 219 mg/dL 70-110 [facility] ID Date Data Source [id number] 08/22/2020 12:34:00 PM EST [facility] [address] [id number] NOTEPATIENT NAME: DIANA OLIVERA PHYSICIAN: KAMLA LANIER MDAUTHOR: Aric Maxwell. DATE: 08/11/20 MR#: [id number] NOTE DATE: 08/22/20 RM#: [id number] TIME: 1239 : 55SubjectiveEvents Since Last EntryPatient seen and examined today. Chart reviewed. Patient is doing welloverall in regards to his COVID-19. Will require 10 days of IV vancomycin dueto MRSA in sputum. Our plan at this point is to complete the course of hisantibiotics here and [facility]. Patient had highblood sugar this morning in [...] Musculoskeletal, Jeremías, Endocrine,Neurology, Psych, Allergy/ImmunologyObjectiveVital SignsVital Signs-24 HRS02/ 02/08/211400 2112 2115 2200Temp 98.7 97.4Pulse 91 91 89Resp 18 19B/P 103/68 103/68 108/87B/P MeanPulse Ox 92 94O2 Delivery Nasal cannula Nasal cannula Nasal cannulaO2 Flow Rate 1L 1L 8XZvC533/06 02/ 02/ 02/556030 9935 0902 0902Temp 98.7Pulse 89 89Resp 17B/P 119/83 122/78 122/78 122/78B/P MeanPulse Ox 98O2 Delivery Nasal cannulaO2 Flow Rate 3GVqY2Kxmecv/OutputIntake/Output Summary 24 hours02/05 1900 02/ 0700Intake Total [...] POPantoprazole Sodium (Protonix) 40 MG DAILY POTiotropium [place] (Spiriva) 1 puffDAILY INHAlbuterol Sulfate (Ventolin) 1 [...] normal affect, normal judgementResultsLaboratory DataRecent Labs-24 hours08/21 08/21 08/22 08/22895172 9654 0405 0607ChemistrySodium (136 - 147 mmol/L) 142Potassium [...] He was placed on bowel regimen.10. GlaucomaA&PContinue nylpngmgdye43. Vitamin D deficiencyA&PContinue vitamin D otvuesuyqq01. DebilityA&PWill need to continue [facility] placement as previous. Repeat Covid testingfor 08/24/20 [...] as this will be [facility] on the [facility] availability ofIV vancomy nicolasa and negative Covid testing priorResuscitation status Full codePlan discussed with patientCase discussed with disease case manager rn, nursing staffDATE SIGNED: 08/22/20 Electronically SignedTIME SIGNED: 1239 ADAM SANABRIA Name Value Range Interpretation Code Description Data Sanjuana rce(s) Supporting Document(s) ID Date Data Source [id number] 08/22/2020 09:44:00 AM EST [facility] Name Value Range Interpretation Code Description Data Sanjuana rce(s) Supporting Document(s) FGLU 168 mg/dL 70-110 [facility] ID Date Data Source [id number] 08/22/2020 05:26:00 AM EST [facility] Name Value Range Interpretation Code Description Data Sanjuana rce(s) Supporting Document(s) MAGNESIUM 1.8 mg/dL 1.6-2.6 [facility] ID Date Data Source [id number] 08/22/2020 05:26:00 AM EST [facility] Name Value Range Interpretation Code Description Data Sanjuana rce(s) Supporting Document(s) GLU 116 mg/dL 70-110 [facility] Patients taking Sulfasalazine may have f alsely depressedGlucose levels. Patients taking Sulfapyridine may havefalsely elevated Glucose levels. Patients should be drawnfor Glucose before the initial administration of eitherdrug. BUN 18 mg/dL 7-23 [facility] CRE 0.722 mg/dL 0.500-1.300 [facility] GFR > 60 mL/min [facility] CHLORIDE 104 mmol/L 99-110 [facility] NA 142 mmol/L 136-147 [facility] POTASSIUM 4.7 mmol/L 3.5-5.1 [facility] TCO2 32 mmol/L 20-33 [facility] ANION GAP 10.7 10.0-20.0 [facility] CA 8.6 mg/dL 8.3-10.7 [facility] ALKALINE PHOS 82 U/L 45-117 [facility] TP 5.7 g/dL 6.0-7.8 [facility] ALB 2.5 g/dL 3.5-5.0 [facility] ESRD Dialysis patient Albumin reference range: 2.9-4.4 g/dL GL 3.2 g/dL 2.3-3.5 [facility] A/G 0.8 1.0-2.5 [facility] T. BILIRUBIN 0.3 mg/dL 0.1-1.1 [facility] The [employer] [place] Total Bilirubin is n ot recommended forpatients undergoing treatment with eltrombopag (Promacta)due to the potential for falsely elevated results. ALTI 27 U/L 6-54 [facility] Patients taking Sulfasalazine and/or Sul fapyridine may havefalsely depressed ALT levels. Patients should be drawn forALT before the initial administration of either drug. AST 16 U/L 8-40 [facility] Patients taking Sulfasalazine and/or Sul fapyridine may havefalsely depressed AST levels. Patients should be drawn forAST before the initial administration of either drug. ID Date Data Source [id number] 08/22/2020 04:59:00 AM EST [facility] Name Value Range Interpretation Code Description Data Sanjuana rce(s) Supporting Document(s) WBC 13.98 x10E3/uL 4.0-10.5 [facility] RBC 4.92 x10E6/uL 4.70-6.00 [facility] Hemoglobin 12.4 g/dL 14.0-18.0 [facility] Hematocrit 39.7 % 42.0-52.0 [facility] MCV 80.7 fL 81.0-99.0 [facility] MCH 25.2 pg 27.0-31.0 [facility] MCHC 31.2 g/dL 32.7-35.6 [facility] RDW 18.7 % 11.5-14.0 [facility] Platelet count 345 x10E3/uL 150-450 [facility] MPV 9.9 fl 6.9-9.5 [facility] Neutrophils 69.6 % 34-64 [facility] Lymphocytes 18.6 % 25-45 [facility] Monocytes 9.1 % 1.7-10.6 [facility] Eosinophils 0.9 % 0.4-7.0 [facility] Basophils 0.2 % 0.1-2.0 [facility] Imm. Gran. 1.6 % 0.1-2.0 [facility] Abs. Neutro. 9.73 x10E3/uL 1.2-7.6 [facility] Abs. Lymph. 2.60 x10E3/uL 1.0-3.5 [facility] Abs. Gillespie. 1.27 x10E3/uL 0.1-1.0 [facility] Abs. Eosin. 0.12 x10E3/uL 0.1-0.7 [facility] Abs. Baso. 0.03 x10E3/uL 0.0-0.1 [facility] Abs. Imm. Gran. 0.23 x10E3/uL 0.0-0.1 [facility] ANRBC% 0 % 0 [facility] ID Date Data Source [id number] 08/21/2020 10:24:00 PM EST [facility] Name Value Range Interpretation Code Description Data Sanjuana rce(s) Supporting Document(s) FGLU 200 mg/dL 70-110 [facility] ID Date Data Source [id number] 08/21/2020 08:50:00 PM EST [facility] Name Value Range Interpretation Code Description Data Sanjuana rce(s) Supporting Document(s) FGLU 323 mg/dL 70-110 [facility] ID Date Data Source [id number] 08/21/2020 03:45:00 PM EST [facility] Name Value Range Interpretation Code Description Data Sanjuana rce(s) Supporting Document(s) FGLU 133 mg/dL 70-110 [facility] ID Date Data Source [id number] 08/21/2020 11:34:00 AM [facility] [place], [place] [address]STKYFPJR NOTEPATIENT NAME: DIANA OLIVERA PHYSICIAN: KAMLA LANIER MDAUTHOR: Aric Maxwell. DATE: 08/11/20 MR#: [id number] NOTE DATE: 08/21/20 RM#: [id number] TIME: 1153 : 55SubjectiveEvents Since Last EntryPatient seen and examined today. Chart reviewed. Patient is doing welloverall in regards to his COVID-19. Will require 10 days of IV vancomycin dueto MRSA in sputum. Our plan at this point is to complete the course of hisantibiotics here and [facility]. Patient had lowblood glucose this morning at 62 and his Levemir was held this am and reducedfor tomorrow to 10units QD. His blood sugar came up with a snack into hnv135e. Patient's vital signs are stable but B/P borderline low this am. He wasencouraged to drink well. I have ordered 1L NS @ 80cc/hr x 1L total. Willmonitor today.Review of SystemsSystems reviewed and negative Constitutional, Integumentary, Eyes, ENT,Respiratory, Cardiovascular, GI, , Musculoskeletal, Jeremías, Endocrine,Neurology, Psych, Allergy /ImmunologyObjectiveVital SignsVital Signs-24 HRS02/04 02/ 02/458558 8373 2143 2200Temp 97.9 98.2Pulse 95 88 89Resp 18 18B/P 101/57 101/56 101/56B/P MeanPulse Ox 94 95O2 Delivery Nasal cannula Nasal cannula Nasal cannulaO2 Flow Rate 1L 1 2BNtF053/05 08/21488305 8573 0948Temp 97.7Pulse 92 92Resp 18B/P 96/58 104/68 104/68B/P MeanPulse Ox 98O2 Delivery Nasal cannulaO2 Flow Rate 1MjJ8Tnilhd/OutputIntake/Output Summary 24 hours02/04 1900 02/05 0700Intake Total 2180Output Total 2600Balance -420Intake, IV 450Intake, Oral 1730Output, Urine 2600Current MedicationsInsulin Detemir (Levemir) 10 UNIT DAILY SUBCUTSodium Chloride (SODIUM CHLORIDE 0.9%) 1,000 ML .[id number] IVVancomycin HCl (Vancocin) 1,000 MG Q12H IVDocusate [...] POPantoprazole Sodium (Protonix) 40 MG DAILY POTiotropium [place] (Spiriva) 1 puffDAILY INHAlbuterol Sulfate (Ventolin) 1 [...] regimen. Milk of magnesia x1 today.10. GlaucomaA&PContinue dgbejpucfdo22. Vitamin D deficiencyA&PContinue vitamin D byordkaiks45. DebilityA&PWill need to continue [facility] placement as previous.13. GERD (gastroesophageal reflux disease)A&PContinue [...] as this [facility] availability ofIV vancomycin and negative Covid testing priorResuscitation status Full codePlan discussed with patientCase discussed with disease case manager rn, nursing staffDATE SIGNED: 08/21/20 Electronically SignedTIME SIGNED: 1153 ADAM SANABRIA Name Value Range Interpretation Code Description Data Sanjuana rce(s) Supporting Document(s) ID Date Data Source [id number] 08/21/2020 09:12:00 AM EST [facility] Name Value Range Interpretation Code Description Data Sanjuana rce(s) Supporting Document(s) VANCOMYCIN TROU 19.2 ug/mL 5-10 [facility] FOR SKIN AND SKIN STRUCTURE INFECTIONS, GUIDELINES RECOMMENDA TROUGH OF 10. FOR SEVERE INFECTIONS, (PNEUMONIA, OSTEOMYELITIS, MENINGITISAND BACTEREMIA) A TARGET TROUGH OF 15 TO 20 IS RECOMMENDED. ID Date Data Source [id number] 08/21/2020 06:41:00 AM EST [facility] Name Value Range Interpretation Code Description Data Sanjuana rce(s) Supporting Document(s) FGLU 62 mg/dL 70-110 [facility] ID Date Data Source [id number] 08/21/2020 01:00:00 AM EST [facility] Name Value Range Interpretation Code Description Data Sanjuana rce(s) Supporting Document(s) FGLU 188 mg/dL 70-110 [facility] ID Date Data Source [id number] 08/20/2020 10:17:00 PM EST [facility] Name Value Range Interpretation Code Description Data Sanjuana rce(s) Supporting Document(s) FGLU 78 mg/dL 70-110 [facility] ID Date Data Source [id number] 08/20/2020 12:13:00 PM EST [facility] [place], [place] [address]LMETHGDB NOTEPATIENT NAME: DIANA OLIVERAMARGOTH PHYSICIAN: KAMLA LANIER MDAUTHOR: Aric Maxwell. DATE: 08/11/20 MR#: [id number] NOTE DATE: 08/20/20 RM#: [id number] TIME: 1223 : 55SubjectiveEvents Since Last EntryPatient seen and examined today. Chart reviewed. Patient is doing welloverall in regards to his COVID-19. Will require 10 days of IV vancomycin dueto MRSA in sputum. Our plan at this point is to complete the course of hisantibiotics here and discharge [facility]. Patient had lowblood glucose this morning at [...] Musculoskeletal, Jeremías, Endocrine,Neurology, Psych, Allergy/ImmunologyObjectiveVital SignsVital Signs-24 HRS0208/19400 2054 2200 2210Temp 98.0 98.5Pulse 88 89 90Resp 16 18B/P 101/58 106/90 106/61B/P MeanPulse Ox 98 95O2 Delivery Non-rebreather Nasal cannula Nasal cannulamaskO2 Flow Rate 15L 1L 1 [id number] 0800 0850 0850 0851Temp 97.3Pulse 87 98Resp 18B/P 106/62 103/57 103/57 103/57B/P MeanPulse Ox 96O2 Delivery Nasal cannula Nasal cannulaO2 Flow Rate 1 L 1MXiW2Nkzmwc/OutputIntake/Output Summary 24 hours02/03 1900 02/04 0700Intake Total [...] POPantoprazole Sodium (Protonix) 40 MG DAILY POTiotropium [place] (Spiriva) 1 puffDAILY INHAlbuterol Sulfate (Ventolin) 1 [...] Status normal affect, normal judgementResultsLaboratory DataRecent Labs-24 hours08/19 2046 0426 0555 0557ChemistrySodium (136 - 147 [...] regimen. Milk of magnesia x1 today.10. GlaucomaA&PContinue kjexnsbdljz49. Vitamin D deficiencyA&PContinue vitamin D mbxxjihksm03. DebilityA&PWill need to continue mcc placement as previous.13. GERD (gastroesophageal reflux disease)A&PContinue [...] Full codePlan discussed with patientCase discussed with disease case manager rn, nursing staffDATE SIGNED: 08/20/20 Electronically SignedTIME SIGNED: 1222 ADAM SANABRI[place] Name Value Range Interpretation Code Description Data Sanjuana rce(s) Supporting Document(s) ID Date Data Source [id number] 08/20/2020 02:35:00 PM EST [facility] Name Value Range Interpretation Code Description Data Snajuana rce(s) Supporting Document(s) FGLU 313 mg/dL 70-110 [facility] ID Date Data Source [id number] 08/20/2020 07:19:00 AM EST [facility] Name Value Range Interpretation Code Description Data Sanjuana rce(s) Supporting Document(s) FGLU 133 mg/dL 70-110 [facility] ID Date Data Source [id number] 08/20/2020 07:48:00 AM EST [facility] Name Value Range Interpretation Code Description Data Sanjuana rce(s) Supporting Document(s) WBC 20.41 x10E3/uL 4.0-10.5 [facility] RBC 5.29 x10E6/uL 4.70-6.00 [facility] Hemoglobin 12.9 g/dL 14.0-18.0 [facility] Hematocrit 42.4 % 42.0-52.0 [facility] MCV 80.2 fL 81.0-99.0 [facility] MCH 24.4 pg 27.0-31.0 [facility] MCHC 30.4 g/dL 32.7-35.6 [facility] RDW 18.7 % 11.5-14.0 [facility] Platelet count 430 x10E3/uL 150-450 [facility] MPV 9.3 fl 6.9-9.5 [facility] Neutrophils 68.9 % 34-64 [facility] Lymphocytes 17.6 % 25-45 [facility] Monocytes 10.1 % 1.7-10.6 [facility] Eosinophils 0.7 % 0.4-7.0 [facility] Basophils 0.3 % 0.1-2.0 [facility] Imm. Gran. 2.4 % 0.1-2.0 [facility] Abs. Neutro. 14.06 x10E3/uL 1.2-7.6 [facility] Abs. Lymph. 3.59 x10E3/uL 1.0-3.5 [facility] Abs. Gillespie. 2.06 x10E3/uL 0.1-1.0 [facility] Abs. Eosin. 0.15 x10E3/uL 0.1-0.7 [facility] Abs. Baso. 0.06 x10E3/uL 0.0-0.1 [facility] Abs. Imm. Gran. 0.49 x10E3/uL 0.0-0.1 [facility] DIFFERENTIAL CONFIRMED BY SLIDE REVIEW. ANRBC% 0 % 0 [facility] PLATELET MORPH 1+ PLT SIZE VARIES [facility] PLATELET MORPHOLOGY EXPECTED RESULT:NORM AL = [...] by the provider. ID Date Data Source [id number] 08/20/2020 06:57:00 AM EST [facility] Name Value Range Interpretation Code Description Data Sanjuana rce(s) Supporting Document(s) FGLU 61 mg/dL 70-110 [facility] ID Date Data Source [id number] 08/20/2020 08:32:00 AM EST [facility] Name Value Range Interpretation Code Description Data Sanjuana rce(s) Supporting Document(s) FGLU 58 mg/dL 70-110 [facility] ID Date Data Source [id number] 08/20/2020 09:58:00 AM EST [facility] Name Value Range Interpretation Code Description Data Sanjuana rce(s) Supporting Document(s) FGLU 65 mg/dL 70-110 [facility] ID Date Data Source [id number] 08/20/2020 01:00:00 PM EST [facility] Name Value Range Interpretation Code Description Data Sanjuana rce(s) Supporting Document(s) FGLU 91 mg/dL 70-110 [facility] ID Date Data Source [id number] 08/20/2020 05:18:00 AM EST [facility] Name Value Range Interpretation Code Description Data Sanjuana rce(s) Supporting Document(s) MAGNESIUM 1.7 mg/dL 1.6-2.6 [facility] ID Date Data Source [id number] 08/20/2020 05:18:00 AM EST [facility] Name Value Range Interpretation Code Description Data Sanjuana rce(s) Supporting Document(s) GLU 31 mg/dL 70-110 [facility] Patients taking Sulfasalazine may have f alsely depressedGlucose levels. Patients taking Sulfapyridine may havefalsely elevated Glucose levels. Patients should be drawnfor Glucose before the initial administration of eitherdrug. BUN 24 mg/dL 7-23 [facility] CRE 0.739 mg/dL 0.500-1.300 [facility] GFR > 60 mL/min [facility] CHLORIDE 105 mmol/L 99-110 [facility] NA 141 mmol/L 136-147 [facility] POTASSIUM 4.5 mmol/L 3.5-5.1 [facility] TCO2 26 mmol/L 20-33 [facility] ANION GAP 14.5 10.0-20.0 [facility] CA 8.8 mg/dL 8.3-10.7 [facility] ALKALINE PHOS 71 U/L 45-117 [facility] TP 6.0 g/dL 6.0-7.8 [facility] ALB 2.7 g/dL 3.5-5.0 [facility] ESRD Dialysis patient Albumin reference range: 2.9-4.4 g/dL GL 3.3 g/dL 2.3-3.5 [facility] A/G 0.8 1.0-2.5 [facility] T. BILIRUBIN 0.4 mg/dL 0.1-1.1 [facility] The Dimension [place] Total Bilirubin is n ot recommended forpatients undergoing treatment with eltrombopag (Promacta)due to the potential for falsely elevated results. ALTI 31 U/L 6-54 [facility] Patients taking Sulfasalazine and/or Sul fapyridine may havefalsely depressed ALT levels. Patients should be drawn forALT before the initial administration of either drug. AST 15 U/L 8-40 [facility] Patients taking Sulfasalazine and/or Sul fapyridine may havefalsely depressed AST levels. Patients should be drawn forAST before the initial administration of either drug. ID Date Data Source [id number] 08/19/2020 10:47:00 PM EST [facility] Name Value Range Interpretation Code Description Data Sanjuana rce(s) Supporting Document(s) FGLU 222 mg/dL 70-110 [facility] ID Date Data Source [id number] 08/19/2020 06:58:00 PM EST [facility] Name Value Range Interpretation Code Description Data Sanjuana rce(s) Supporting Document(s) FGLU 83 mg/dL 70-110 [facility] ID Date Data Source [id number] 08/19/2020 02:31:00 PM EST [facility] [address] [id number] NOTEPATIENT NAME: DIANA OLIVERA PHYSICIAN: KAMLA LANIER MDAUTHOR: Aric Maxwell. DATE: 08/11/20 MR#: [id number] NOTE DATE: 08/19/20 RM#: [id number] TIME: 1439 : 55SubjectiveEvents Since Last EntryPatient seen and examined today. Chart reviewed. Patient is doing welloverall in regards to his COVID-19. Will require 10 days of IV vancomycin dueto MRSA in sputum. Our plan at this point is to complete the course of hisantibiotics here and [facility]. Patient's labsare stable.Review of SystemsSystems reviewed and negative Constitutional, Integumentary, Eyes, ENT,Respiratory, Cardiovascular, GI, , Musculoskeletal, Jeremías, Endocrine,Neurology, Psych, Allergy/ImmunologyObjectiveVital SignsVital Signs-24 HRS08/18029 2140 2200 0622 0925Temp 97.9 98.5Pulse 86 88 89 92Re sp 18 17B/P 119/63 119/63 110/61 103/58B/P MeanPulse Ox 97 98O2 Delivery Nasal cannula Nasal cannula Nasal cannulaO2 Flow Rate 2 2L 0SnK41308/19 0925 1000TempPulseRespB/P 103/58 103/58B/P MeanPulse OxO2 Delivery Nasal cannulaO2 Flow Rate 8AEvD8Pcjbas/OutputIntake/Output Summary 24 hours08/18 1900 02/03 0700Intake Total 1125 1400Output Total [...] POPantoprazole Sodium (Protonix) 40 MG DAILY POTiotropium [place] (Spiriva) 1 puffDAILY INHAlbuterol Sulfate (Ventolin) 1 [...] 0Platelet Morphology INCREASEDRBC Morphology 1+ ANISOCYTOSIS1+ HYPOCHROMIC1+ AAZMMQVITHAC1208/19544 0740 1118ChemistryPOC Glucose (70 - 110 mg/dL) [...] baclofen. Continuegabapentin. She was placed on bowel eqxvwae64. GlaucomaA&PContinue kawzgwopbim58. Vitamin D deficiencyA&PContinue vitamin D tkdyrmbjsn20. DebilityA&PWill need to continue [facility]cc placement as previous.13. GERD (gastroesophageal reflux disease)A&PContinue [...] Full codePlan discussed with patientCase discussed with disease case manager rn, nursing staffDATE SIGNED: 08/19/20 Electronically SignedTIME SIGNED: 1434 ADAM SANABRIA Name Value Range Interpretation Code Description Data Sanjuana rce(s) Supporting Document(s) ID Date Data Source [id number] 08/19/2020 11:22:00 AM EST [facility] Name Value Range Interpretation Code Description Data Sanjuana rce(s) Supporting Document(s) FGLU 171 mg/dL 70-110 [facility] ID Date Data Source [id number] 08/19/2020 08:46:00 AM EST [facility] Name Value Range Interpretation Code Description Data Sanjuana rce(s) Supporting Document(s) VANCOMYCIN TROU 19.6 ug/mL 5-[facility] SKIN STRUCTURE INFECTIONS, GUIDELINES RECOMMENDA TROUGH OF 10. FOR SEVERE INFECTIONS, (PNEUMONIA, OSTEOMYELITIS, MENINGITISAND BACTEREMIA) A TARGET TROUGH OF 15 TO 20 IS RECOMMENDED. ID Date Data Source [id number] 08/19/2020 10:06:00 AM [facility] Name Value Range Interpretation Code Description Data Sanjuana rce(s) Supporting Document(s) FGLU 81 mg/dL 70-110 [facility] ID Date Data Source [id number] 08/19/2020 04:45:00 AM EST [facility] Name Value Range Interpretation Code Description Data Sanjuana rce(s) Supporting Document(s) GLU 96 mg/dL 70-110 [facility] Patients taking Sulfasalazine may have f alsely depressedGlucose levels. Patients taking Sulfapyridine may havefalsely elevated Glucose levels. Patients should be drawnfor Glucose before the initial administration of eitherdrug. BUN 21 mg/dL 7-23 [facility] CRE 0.665 mg/dL 0.500-1.300 [facility] GFR > 60 mL/min [facility] CHLORIDE 103 mmol/L 99-110 [facility] NA 139 mmol/L 136-147 [facility] POTASSIUM 4.7 mmol/L 3.5-5.1 [facility] TCO2 30 mmol/L 20-33 [facility] ANION GAP 10.7 10.0-20.0 [facility] CA 8.9 mg/dL 8.3-10.7 [facility] ALKALINE PHOS 72 U/L 45-117 [facility] TP 5.9 g/dL 6.0-7.8 [facility] ALB 2.6 g/dL 3.5-5.0 [facility] ESRD Dialysis patient Albumin reference range: 2.9-4.4 g/dL GL 3.3 g/dL 2.3-3.5 [facility] A/G 0.8 1.0-2.5 [facility] T. BILIRUBIN 0.4 mg/dL 0.1-1.1 [facility] The [employer] [place] Total Bilirubin is n ot recommended forpatients undergoing treatment with eltrombopag (Promacta)due to the potential for falsely elevated results. ALTI 31 U/L 6-54 [facility] Patients taking Sulfasalazine and/or Sul fapyridine may havefalsely depressed ALT levels. Patients should be drawn forALT before the initial administration of either drug. AST 13 U/L 8-40 [facility] Patients taking Sulfasalazine and/or Sul fapyridine may havefalsely depressed AST levels. Patients should be drawn forAST before the initial administration of either drug. ID Date Data Source [id number] 08/19/2020 04:45:00 AM EST [facility] Name Value Range Interpretation Code Description Data Sanjuana rce(s) Supporting Document(s) MAGNESIUM 2.0 mg/dL 1.6-2.6 [facility] ID Date Data Source [id number] 08/19/2020 04:34:00 AM EST [facility] Name Value Range Interpretation Code Description Data Sanjuana rce(s) Supporting Document(s) WBC 18.99 x10E3/uL 4.0-10.5 [facility] RBC 5.23 x10E6/uL 4.70-6.00 [facility] Hemoglobin 12.8 g/dL 14.0-18.0 [facility] Hematocrit 41.6 % 42.0-52.0 [facility] MCV 79.5 fL 81.0-99.0 [facility] MCH 24.5 pg 27.0-31.0 [facility] MCHC 30.8 g/dL 32.7-35.6 [facility] RDW 18.8 % 11.5-14.0 [facility] Platelet count 472 x10E3/uL 150-450 [facility] ital MPV 9.7 fl 6.9-9.5 [facility] Neutrophils 78.7 % 34-64 [facility] Lymphocytes 10.4 % 25-45 [facility] Monocytes 8.5 % 1.7-10.6 [facility] Eosinophils 0.1 % 0.4-7.0 [facility] Basophils 0.2 % 0.1-2.0 [facility] Imm. Gran. 2.1 % 0.1-2.0 [facility] Abs. Neutro. 14.97 x10E3/uL 1.2-7.6 [facility] Abs. Lymph. 1.97 x10E3/uL 1.0-3.5 [facility] Abs. Gillespie. 1.62 x10E3/uL 0.1-1.0 [facility] Abs. Eosin. 0.01 x10E3/uL 0.1-0.7 [facility] Abs. Baso. 0.03 x10E3/uL 0.0-0.1 [facility] Abs. Imm. Gran. 0.39 x10E3/uL 0.0-0.1 [facility] DIFFERENTIAL CONFIRMED BY SLIDE REVIEW.0 08/19/20 0433: Abs. Imm. Gran. previously reported as: 0.39 Hx10E3/uL ANRBC% 0 % 0 [facility] PLATELET MORPH INCREASED [facility] PLATELET MORPHOLOGY EXPECTED RESULT:NORM AL [...] by the provider. ID Date Data Source [id number] 08/19/2020 02:33:00 PM EST [facility] Name Value Range Interpretation Code Description Data Sanjuana rce(s) Supporting Document(s) FGLU 268 mg/dL 70-110 [facility] ID Date Data Source [id number] 08/18/2020 07:28:00 PM EST [facility] Name Value Range Interpretation Code Description Data Sanjuana rce(s) Supporting Document(s) FGLU 192 mg/dL 70-110 [facility] ID Date Data Source [id number] 08/18/2020 03:25:00 PM EST [facility] [address] [id number] NOTEPATIENT NAME: DIANA OLIVERAMARGOTH PHYSICIAN: KAMLA LANIER MDAUTHOR: Aric Maxwell. DATE: 08/11/20 MR#: [id number] NOTE DATE: 08/18/20 RM#: [id number] TIME: 1532 : 55SubjectiveEvents Since Last EntryPatient seen and examined today. Chart reviewed. Patient is doing welloverall in regards to his COVID-19. Will require 10 days of IV vancomycin dueto MRSA in sputum. Patient's labs are stab le. Will DC simethicone as patienthas received 7+ days and is now ready to be discharged from the aspect of hisCOVID-19. Unable to be placed back at [facility] until COVID-19 negative. He will need to complete his vancomycin first as well. Heremains afebrile. He is a possible discharge [facility] swingbed service and this is pending. He is stable for discharge into long-termcare or swing bed at any point in time. We are awaiting either negative Covidtesting for transfer back to SNF or placement availability at [facility] swing bed. I updated his yesterday.ObjectiveVital SignsVital Signs-24 HRS08/17 2200Temp 97.5 97.8Pulse 73 68 85Resp 18 16B/P 119/66 121/66 119/66B/P MeanPulse Ox 96 98O2 Deliv francisco Nasal cannula Nasal cannula Nasal cannulaO2 Flow Rate 2L 2L 3 QPHKYAUjA175/08/18150 0600 0800 0827 0828Temp 97.6 97.4Pulse 129 81 91Resp 25 18B/P 182/93 118/64 120/61 120/61B/P MeanPulse Ox 88 99O2 Delivery Vapotherm Nasal cannula Nasal cannulaO2 Flow Rate 40L 2L 5RQpB238/8 1349Temp 98.5Pulse 90Resp 20B/P 120/61 122/64B/P MeanPulse Ox 100O2 Delivery Nasal cannulaO2 Flow Rate 7UFqW2Bcuxkz/OutputIntake/Output Summary 24 hours02/ 1900 02 0700Intake Total 2010 200Output Total 1400 1500Balance 610 -1300Intake, IV [...] POPantoprazole Sodium (Protonix) 40 MG DAILY POTiotropium [place] (Spiriva) 1 puffDAILY INHAlbuterol Sulfate (Ventolin) 1 [...] affect, normal judgementResultsLaborat ory DataRecent Labs-24 hours08/17 0426 0610ChemistrySodium (136 - 147 mmol/L) 135 LPotassium [...] x10E3/uL) 0.03Nucleated RBC % (auto) (0 %) 002/148531OaadshmfhBNV Glucose (70 - 110 mg/dL) 164 HResults [...] fentanyl patch, oxycodone. Continue baclofen. Continuegabapentin.10. GlaucomaA&PContinue pyotzvbtarn32. Vitamin D deficiencyA&PContinue vitamin D yuyzfrjgmd89. DebilityA&PWill need to continue [facility] placement as previous.13. GERD (gastroesophageal reflux disease)A&PContinue [...] codePlan discussed with patient, wifeCase discussed with disease case manager rn, nursing staffDATE SIGNED: 08/18/20 Electronically SignedTIME SIGNED: 1531 ADAM SANABRIA Name Value Range Interpretation Code Description Data Sanjuana rce(s) Supporting Document(s) ID Date Data Source [id number] 08/18/2020 11:21:00 AM EST [facility] Name Value Range Interpretation Code Description Data Sanjuana rce(s) Supporting Document(s) FGLU 164 mg/dL 70-110 [facility] ID Date Data Source [id number] 08/18/2020 06:16:00 AM EST [facility] Name Value Range Interpretation Code Description Data Sanjuana rce(s) Supporting Document(s) FGLU 162 mg/dL 70-110 [facility] ID Date Data Source [id number] 08/18/2020 06:22:00 AM EST [facility] Name Value Range Interpretation Code Description Data Sanjuana rce(s) Supporting Document(s) C-REACTIVE PROT 0.38 mg/dL 0.0-0.49 [facility] Date Data Source [id number] 08/18/2020 06:22:00 AM EST [facility] Name Value Range Interpretation Code Description Data Sanjuana rce(s) Supporting Document(s) DENILSON 3.7 mg/dL 2.5-4.5 [facility] ID Date Data Source [id number] 08/18/2020 06:22:00 AM EST [facility] Name Value Range Interpretation Code Description Data Sanjuana rce(s) Supporting Document(s) GLU 155 mg/dL 70-110 [facility] Patients taking Sulfasalazine may have f alsely depressedGlucose levels. Patients taking Sulfapyridine may havefalsely elevated Glucose levels. Patients should be drawnfor Glucose before the initial administration of eitherdrug. BUN 19 mg/dL 7-23 [facility] CRE 0.584 mg/dL 0.500-1.300 [facility] GFR > 60 mL/min [facility] CHLORIDE 100 mmol/L 99-110 [facility] NA 135 mmol/L 136-147 [facility] POTASSIUM 4.5 mmol/L 3.5-5.1 [facility] TCO2 27 mmol/L 20-33 [facility] ANION GAP 12.5 10.0-20.0 [facility] CA 8.6 mg/dL 8.3-10.7 [facility] ALKALINE PHOS 71 U/L 45-117 [facility] TP 5.9 g/dL 6.0-7.8 [facility] ALB 2.5 g/dL 3.5-5.0 [facility] ESRD Dialysis patient Albumin reference range: 2.9-4.4 g/dL GL 3.4 g/dL 2.3-3.5 [facility] A/G 0.7 1.0-2.5 [facility] T. BILIRUBIN 0.4 mg/dL 0.1-1.1 [facility] [employer] [place] Total Bilirubin is n ot recommended forpatients undergoing treatment with eltrombopag (Promacta)due to the potential for falsely elevated results. ALTI 31 U/L 6-54 [facility] Patients taking Sulfasalazine and/or Sul fapyridine may havefalsely depressed ALT levels. Patients should be drawn forALT before the initial administration of either drug. AST 16 U/L 8-40 [facility] Patients taking Sulfasalazine and/or Sul fapyridine may havefalsely depressed AST levels. Patients should be drawn forAST before the initial administration of either drug. ID Date Data Source [id number] 08/18/2020 06:22:00 AM EST [facility] Name Value Range Interpretation Code Description Data Sanjuana rce(s) Supporting Document(s) MAGNESIUM 1.7 mg/dL 1.6-2.6 [facility] ID Date Data Source [id number] 08/18/2020 05:56:00 AM EST [facility] Name Value Range Interpretation Code Description Data Sanjuana rce(s) Supporting Document(s) WBC 17.34 x10E3/uL 4.0-10.5 [facility] RBC 5.27 x10E6/uL 4.70-6.00 [facility] Hemoglobin 12.7 g/dL 14.0-18.0 [facility] Hematocrit 41.4 % 42.0-52.0 [facility] MCV 78.6 fL 81.0-99.0 [facility] MCH 24.1 pg 27.0-31.0 [facility] MCHC 30.7 g/dL 32.7-35.6 [facility] RDW 18.6 % 11.5-14.0 [facility] Platelet count 499 x10E3/uL 150-450 [facility] ital MPV 9.6 fl 6.9-9.5 [facility] Neutrophils 79.5 % 34-64 [facility] Lymphocytes 10.2 % 25-45 [facility] Monocytes 7.6 % 1.7-10.6 [facility] Eosinophils 0.1 % 0.4-7.0 [facility] Basophils 0.2 % 0.1-2.0 [facility] Imm. Gran. 2.4 % 0.1-2.0 [facility] Abs. Neutro. 13.81 x10E3/uL 1.2-7.6 [facility] Abs. Lymph. 1.77 x10E3/uL 1.0-3.5 [facility] Abs. Gillespie. 1.31 x10E3/uL 0.1-1.0 [facility] Abs. Eosin. 0.01 x10E3/uL 0.1-0.7 [facility] Abs. Baso. 0.03 x10E3/uL 0.0-0.1 [facility] Abs. Imm. Gran. 0.41 x10E3/uL 0.0-0.1 [facility] ANRBC% 0 % 0 [facility] ID Date Data Source [id number] 08/18/2020 01:09:00 AM EST [facility] Name Value Range Interpretation Code Description Data Sanjuana rce(s) Supporting Document(s) FGLU 367 mg/dL 70-110 [facility] ID Date Data Source [id number] 08/17/2020 04:48:00 PM EST [facility] Name Value Range Interpretation Code Description Data Sanjuana rce(s) Supporting Document(s) FGLU 248 mg/dL 70-110 [facility] ID Date Data Source [id number] 08/17/2020 03:19:00 PM EST [facility] [address] [id number] NOTEPATIENT NAME: DIANA OLIVERA PHYSICIAN: KAMLA LANIER MDAUTHOR: Aric Maxwell. DATE: 08/11/20 MR#: [id number] NOTE DATE: 08/17/20 RM#: 239EVALUATION TIME: 1528 : 55SubjectiveEvents Since Last EntryPatient seen and examined today. Chart reviewed. Patient is doing welloverall in regards to his COVID-19. Will require 10 days of IV vancomycin.Unable to be [facility] at [facility] nu rsing home until COVID-19negative. He will [...] Nasal cannulaO2 Flow Rate 3L 3 3 [id number] 5511 0758 0759 0759Temp 98.3 98.0Pulse 90 77 77Resp 18 18B/P 119/65 120/65 120/65 120/65 120/65B/P MeanPulse Ox 97 98O2 Delivery Nasal cannula Nasal cannulaO2 Flow Rate 3 LITERS 3 [id number]/[id number] 2631 1401Temp 99.1 99.0Pulse 86 91Resp 16 20B/P 123/64 102/60B/P MeanPulse Ox 98 100O2 Delivery Nasal cannula Nasal cannula Nasal cannulaO2 Flow Rate 2L 3 L 5JRfY8Ttnznv/OutputIntake/Output Summary 24 hours08/16 1900 08/17 0700Intake Total [...] POPantoprazole Sodium (Protonix) 40 MG DAILY POTiotropium [place] (Spiriva) 1 puffDAILY INHAlbuterol Sulfate (Ventolin) 1 [...] 15.73 HAbsolute Lymphs (auto) (1.0 - 3.5 1.64v53K1/uL)Absolute Monos (auto) (0.1 - 1.0 x10E3/uL) 1.42 HAbsolute Eos (auto) (0.1 - 0.7 x10E3/uL) 0.02 LAbsolute Basos (auto) (0.0 - 0.1 x10E3/uL) 0.03Nucleated RBC % (auto) (0 %) 0ToxicologyVancomycin Trough (5 - 10 ug/mL) 15.0 H02/982317JwihtrywzWWQ Glucose (70 - 110 mg/dL) 167 HResults [...] fentanyl patch, oxycodone. Continue baclofen. Continuegabapentin.10. GlaucomaA&PContinue hdbyuhamrvc05. Vitamin D deficiencyA&PContinue vitamin D bvflvbcoyj44. DebilityA&PWill need to continue mcc placement as previous.13. GERD (gastroesophageal reflux disease)A&PContinue [...] codePlan discussed with patient, wifeCase discussed with disease case manager rn, nursing staffDATE SIGNED: 08/17/20 Electronically SignedTIME SIGNED: 1528 ADAM SANABRIA Name Value Range Interpretation Code Description Data Sanjuana rce(s) Supporting Document(s) ID Date Data Source [id number] 08/17/2020 05:46:00 PM EST [facility] Name Value Range Interpretation Code Description Data Sanjuana rce(s) Supporting Document(s) FGLU 171 mg/dL 70-110 [facility] ID Date Data Source [id number] 08/17/2020 10:50:00 AM EST [facility] Name Value Range Interpretation Code Description Data Sanjuana rce(s) Supporting Document(s) FGLU 167 mg/dL 70-110 [facility] ID Date Data Source [id number] 08/17/2020 05:45:00 AM EST [facility] Name Value Range Interpretation Code Description Data Sanjuana rce(s) Supporting Document(s) C-REACTIVE PROT 0.61 mg/dL 0.0-0.49 [facility] ID Date Data Source [id number] 08/17/2020 05:45:00 AM EST [facility] Name Value Range Interpretation Code Description Data Sanjuana rce(s) Supporting Document(s) MAGNESIUM 1.7 mg/dL 1.6-2.6 [facility] ID Date Data Source [id number] 08/17/2020 05:45:00 AM EST [facility] Name Value Range Interpretation Code Description Data Sanjuana rce(s) Supporting Document(s) DENILSON 3.1 mg/dL 2.5-4.5 [facility] ID Date Data Source [id number] 08/17/2020 05:03:00 AM EST [facility] Name Value Range Interpretation Code Description Data Sanjuana rce(s) Supporting Document(s) WBC 19.47 x10E3/uL 4.0-10.5 [facility] RBC 4.98 x10E6/uL 4.70-6.00 [facility] Hemoglobin 11.9 g/dL 14.0-18.0 L [facility] Hematocrit 38.9 % 42.0-52.0 L [facility] MCV 78.1 fL 81.0-99.0 [facility] MCH 23.9 pg 27.0-31.0 [facility] MCHC 30.6 g/dL 32.7-35.6 [facility] RDW 18.6 % 11.5-14.0 [facility] Platelet count 488 x10E3/uL 150-450 [facility] MPV 9.7 fl 6.9-9.5 [facility] Neutrophils 80.7 % 34-64 [facility] Lymphocytes 9.2 % 25-45 L [facility] Monocytes 7.3 % 1.7-10.6 [facility] Eosinophils 0.1 % 0.4-7.0 [facility] Basophils 0.2 % 0.1-2.0 [facility] Imm. Gran. 2.5 % 0.1-2.0 [facility] Abs. Neutro. 15.73 x10E3/uL 1.2-7.6 [facility] Abs. Lymph. 1.79 x10E3/uL 1.0-3.5 [facility] Abs. Gillespie. 1.42 x10E3/uL 0.1-1.0 [facility] Abs. Eosin. 0.02 x10E3/uL 0.1-0.7 [facility] Abs. Baso. 0.03 x10E3/uL 0.0-0.1 [facility] Abs. Imm. Gran. 0.48 x10E3/uL 0.0-0.1 H [facility] ANRBC% 0 % 0 [facility] ID Date Data Source [id number] 08/17/2020 05:45:00 AM [facility] Name Value Range Interpretation Code Description Data Sanjuana rce(s) Supporting Document(s) GLU 170 mg/dL 70-110 [facility] Patients taking Sulfasalazine may have f alsely depressedGlucose levels. Patients taking Sulfapyridine may havefalsely elevated Glucose levels. Patients should be drawnfor Glucose before the initial administration of eitherdrug. BUN 23 mg/dL 7-23 [facility] CRE 0.634 mg/dL 0.500-1.300 [facility] GFR > 60 mL/min [facility] CHLORIDE 103 mmol/L 99-110 [facility] NA 139 mmol/L 136-147 [facility] POTASSIUM 4.6 mmol/L 3.5-5.1 [facility] TCO2 27 mmol/L 20-33 [facility] ANION GAP 13.6 10.0-20.0 [facility] CA 8.5 mg/dL 8.3-10.7 [facility] ALKALINE PHOS 68 U/L 45-117 [facility] TP 5.8 g/dL 6.0-7.8 [facility] ALB 2.5 g/dL 3.5-5.0 [facility] ESRD Dialysis patient Albumin reference range: 2.9-4.4 g/dL GL 3.3 g/dL 2.3-3.5 [facility] A/G 0.8 1.0-2.5 [facility] T. BILIRUBIN 0.3 mg/dL 0.1-1.1 [facility] [employer] [facility] [place] Total Bilirubin is n ot recommended forpatients undergoing treatment with eltrombopag (Promacta)due to the potential for falsely elevated results. ALTI 31 U/L 6-54 [facility] Patients taking Sulfasalazine and/or Sul fapyridine may havefalsely depressed ALT levels. Patients should be drawn forALT before the initial administration of either drug. AST 13 U/L 8-40 [facility] Patients taking Sulfasalazine and/or Sul fapyridine may havefalsely depressed AST levels. Patients should be drawn forAST before the initial administration of either drug. ID Date Data Source [id number] 08/16/2020 09:06:00 PM EST [facility] Name Value Range Interpretation Code Description Data Sanjuana rce(s) Supporting Document(s) FGLU 244 mg/dL 70-110 [facility] ID Date Data Source [id number] 08/16/2020 08:48:00 PM EST [facility] Name Value Range Interpretation Code Description Data Sanjuana rce(s) Supporting Document(s) VANCOMYCIN TROU 15.0 ug/mL 5-10 [facility] FOR SKIN AND SKIN STRUCTURE INFECTIONS, GUIDELINES RECOMMENDA TROUGH OF 10. FOR SEVERE INFECTIONS, (PNEUMONIA, OSTEOMYELITIS, MENINGITISAND BACTEREMIA) A TARGET TROUGH OF 15 TO 20 IS RECOMMENDED. ID Date Data Source [id number] 08/16/2020 08:26:00 PM EST [facility] Name Value Range Interpretation Code Description Data Sanjuana rce(s) Supporting Document(s) FGLU 266 mg/dL 70-110 [facility] ID Date Data Source [id number] 08/16/2020 07:28:00 PM EST [facility] Name Value Range Interpretation Code Description Data Sanjuana rce(s) Supporting Document(s) FGLU 206 mg/dL 70-110 [facility] ID Date Data Source [id number] 08/16/2020 09:58:00 AM EST [facility] [address] [id number] NOTEPATIENT NAME: DIANA OLIVERA PHYSICIAN: KAMLA LANIER, MDAUTHOR: Huy Lanier MD. DATE: 08/11/20 MR#: [id number] NOTE DATE: 08/16/20 RM#: [id number] TIME: 1011 : 55SubjectiveCC/Hx Present IllnessShortness of breathEvents Since Last EntryPt seen and examined at the bedside. Pt is now on 4L of oxygen (previouslyrequired 5L). Pt has completed his remdesivir course. Case management isassisting with [facility]. Today is day 4 of IV vancomycin(for MRSA in sputum). WBC is elevated but CRP has downtrended to 1. Thus, Isuspect that the WBC elevation is from the dexamethasone administration.ObjectiveVital SignsVital Signs-24 HRS08/[id number] 6246 1814 2130Temp 98.8 98.2Pulse 97 98 86Resp 20 22B/P 118/66 114/68 135/73B/P MeanPulse Ox 96 96O2 Delivery Nasal cannula Nasal cannula Nasal cannulaO2 Flow Rate 4 L 5L 3GLsD74408/15329417 4341 0225 0508 0742Temp 97.9 97.8 98.2Pulse 91 88 82Resp 17 18 17B/P 135/73 137/72 133/71 133/71B/P MeanPulse Ox 97 97 98O2 Delivery Nasal cannula Nasal cannula Nasal cannula NasalcannulaO2 Flow Rate 4 4 4 [id number]/[id number] 0743TempPulse 82RespB/P 133/71 133/71B/P MeanPulse OxO2 DeliveryO2 Flow ZudyEvZ9Usirrk/OutputIntake/Output Summary 24 hours08/15 1900 08/16 0700Intake Total [...] POPantoprazole Sodium (Protonix) 40 MG DAILY POTiotropium [place] (Spiriva) 1 puffDAILY INHAlbuterol Sulfate (Ventolin) 1 [...] rce(s) Supporting Document(s) ID Date Data Source [id number] 08/16/2020 10:28:00 PM EST [facility] Name Value Range Interpretation Code Description Data Sanjuana rce(s) Supporting Document(s) FGLU 149 mg/dL 70-110 [facility] ID Date Data Source [id number] 08/16/2020 06:53:00 AM EST [facility] Name Value Range Interpretation Code Description Data Sanjuana rce(s) Supporting Document(s) C-REACTIVE PROT 1.02 mg/dL 0.0-0.49 [facility] [id number] 08/16/2020 06:53:00 AM EST [facility] Name Value Range Interpretation Code Description Data Sanjuana rce(s) Supporting Document(s) MAGNESIUM 1.7 mg/dL 1.6-2.6 [facility] ID Date Data Source [id number] 08/16/2020 06:53:00 AM EST [facility] Name Value Range Interpretation Code Description Data Sanjuana rce(s) Supporting Document(s) DENILSON 3.4 mg/dL 2.5-4.5 [facility] ID Date Data Source [id number] 08/16/2020 06:53:00 AM EST [facility] Name Value Range Interpretation Code Description Data Sanjuana rce(s) Supporting Document(s) GLU 155 mg/dL 70-110 [facility] Patients taking Sulfasalazine may have f alsely depressedGlucose levels. Patients taking Sulfapyridine may havefalsely elevated Glucose levels. Patients should be drawnfor Glucose before the initial administration of eitherdrug. BUN 20 mg/dL 7-23 [facility] CRE 0.803 mg/dL 0.500-1.300 [facility] GFR > 60 mL/min [facility] CHLORIDE 103 mmol/L 99-110 [facility] NA 140 mmol/L 136-147 [facility] POTASSIUM 5.0 mmol/L 3.5-5.1 [facility] TCO2 30 mmol/L 20-33 [facility] ANION GAP 12.0 10.0-20.0 [facility] CA 8.8 mg/dL 8.3-10.7 [facility] ALKALINE PHOS 81 U/L 45-117 [facility] TP 6.5 g/dL 6.0-7.8 [facility] ALB 2.6 g/dL 3.5-5.0 [facility] ESRD Dialysis patient Albumin reference range: 2.9-4.4 g/dL GL 3.9 g/dL 2.3-3.5 H [facility] A/G 0.7 1.0-2.5 [facility] T. BILIRUBIN 0.5 mg/dL 0.1-1.1 [facility] [employer] [place] Total Bilirubin is n ot recommended forpatients undergoing treatment with eltrombopag (Promacta)due to the potential for falsely elevated results. ALTI 34 U/L 6-54 [facility] Patients taking Sulfasalazine and/or Sul fapyridine may havefalsely depressed ALT levels. Patients should be drawn forALT before the initial administration of either drug. AST 14 U/L 8-40 [facility] Patients taking Sulfasalazine and/or Sul fapyridine may havefalsely depressed AST levels. Patients should be drawn forAST before the initial administration of either drug. ID Date Data Source [id number] 08/16/2020 06:06:00 AM EST [facility] Name Value Range Interpretation Code Description Data Sanjuana rce(s) Supporting Document(s) WBC 17.29 x10E3/uL 4.0-10.5 [facility] 5.40 x10E6/uL 4.70-6.00 [facility] Hemoglobin 13.1 g/dL 14.0-18.0 [facility] Hematocrit 42.5 % 42.0-52.0 [facility] MCV 78.7 fL 81.0-99.0 [facility] MCH 24.3 pg 27.0-31.0 [facility] MCHC 30.8 g/dL 32.7-35.6 [facility] RDW 18.9 % 11.5-14.0 [facility] Platelet count 540 x10E3/uL 150-450 [facility] ital MPV 9.4 fl 6.9-9.5 [facility] Neutrophils 78.6 % 34-64 H [facility] Lymphocytes 10.9 % 25-45 [facility] Monocytes 7.3 % 1.7-10.6 [facility] Eosinophils 0.1 % 0.4-7.0 L [facility] Basophils 0.2 % 0.1-2.0 [facility] Imm. Gran. 2.9 % 0.1-2.0 [facility] Abs. Neutro. 13.59 x10E3/uL 1.2-7.6 [facility] Abs. Lymph. 1.89 x10E3/uL 1.0-3.5 [facility] Abs. Gillespie. 1.26 x10E3/uL 0.1-1.0 [facility] Abs. Eosin. 0.01 x10E3/uL 0.1-0.7 [facility] Abs. Baso. 0.03 x10E3/uL 0.0-0.1 [facility] Abs. Imm. Gran. 0.51 x10E3/uL 0.0-0.1 [facility] ANRBC% 0 % 0 [facility] ID Date Data Source [id number] 08/15/2020 11:23:00 PM EST [facility] Name Value Range Interpretation Code Description Data Sanjuana rce(s) Supporting Document(s) FGLU 292 mg/dL 70-110 [facility] ID Date Data Source [id number] 08/15/2020 03:58:00 PM EST [facility] Name Value Range Interpretation Code Description Data Sanjuana rce(s) Supporting Document(s) FGLU 257 mg/dL 70-110 [facility] ID Date Data Source [id number] 08/15/2020 11:26:00 AM EST [facility] Name Value Range Interpretation Code Description Data Sanjuana rce(s) Supporting Document(s) FGLU 245 mg/dL 70-110 [facility] ID Date Data Source [id number] 08/15/2020 09:01:00 AM EST [facility] [place] [address] [id number] NOTEPATIENT NAME: DIANA OLIVERA PHYSICIAN: KAMLA LANIER, MDAUTHOR: Huy Lanier MD. DATE: 08/11/20 MR#: [id number] NOTE DATE: 08/15/20 RM#: [id number] TIME: 0907 [...] management istrying to get the pt to [facility] (pt came from [place] [facility]).ObjectiveVital SignsVital Signs-24 HRS08/[id number] 5343 1018 1445 1511Temp 98.0 98.0 97.9 97.9Pulse 92 95 96 97Resp 18 16B/P 112/60 112/60 135/68 135/68B/P MeanPulse Ox 95 92 95 94O2 Delivery Nasal cannula Nasal cannula Nasal cannulaO2 Flow Rate 4 5L 6QOnW93708/14838 2006 2146 0200Temp 97.8 97.9 97.4Pulse 96 97 93 88Resp 18 18 18B/P 151/79 151/79 147/80 145/77B/P MeanPulse Ox 95 95 97O2 Delivery Nasal cannula Nasal cannula Nasal cannulaO2 Flow Rate 5L 4L 8XNuW20308/[id number] 3418 0756 0757Temp 97.8Pulse 87 87Resp 18B/P 111/64 111/64 111/64 111/64B/P MeanPulse Ox 97O2 Delivery Nasal cannulaO2 Flow Rate 6MRiH1Smczqg/OutputIntake/Output Summary 24 hours08/14 1900 08/15 0700Intake Total [...] POPantoprazole Sodium (Protonix) 40 MG DAILY POTiotropium [place] (Spiriva) 1 puffDAILY INHAlbuterol Sulfate (Ventolin) 1 [...] x 3Psych/Mental Status mood neutralResultsLaboratory DataRecent Labs-24 hours08/14152 1720 2019 0605ChemistryGlucose (70 - 110 mg/dL) 315 HPOC Glucose (70 - 110 mg/dL) 276 H 360 H 165 H01/361946YoapldndzDfukpm PendingPotassium PendingChloride PendingSerum Bicarbonate PendingAnion Gap PendingBUN [...] positive for MRSA- IV vancomycin 1250 mg e34Zqgcothlor NotesDVT prophylaxis: Eliquis as aboveResuscitation status Full codeDATE SIGNED: 08/15/20 Electronically SignedTIME SIGNED: 1855 KAMLA LANIER MD Name Value Range Interpretation Code Description Data [facility](s) Supporting Document(s) ID Date Data Source [id number] 08/15/2020 09:28:00 AM [facility] Name Value Range Interpretation Code Description Data [facility](s) Supporting Document(s) WBC 16.99 x10E3/uL 4.0-10.5 [facility] RBC 5.45 x10E6/uL 4.70-6.00 [facility] Hemoglobin 13.1 g/dL 14.0-18.0 L [facility] Hematocrit 42.8 % 42.0-52.0 N [facility] MCV 78.5 fL 81.0-99.0 L [facility] MCH 24.0 pg 27.0-31.0 L [facility] MCHC 30.6 g/dL 32.7-35.6 L [facility] RDW 19.1 % 11.5-14.0 [facility] Platelet count 558 x10E3/uL 150-450 [facility] MPV 9.4 fl 6.9-9.5 [facility] Neutrophils 74.4 % 34-64 [facility] Lymphocytes 12.7 % 25-45 [facility] Monocytes 9.7 % 1.7-10.6 [facility] Eosinophils 0.2 % 0.4-7.0 [facility] Basophils 0.2 % 0.1-2.0 [facility] Imm. Gran. 2.8 % 0.1-2.0 [facility] Abs. Neutro. 12.64 x10E3/uL 1.2-7.6 [facility] Abs. Lymph. 2.15 x10E3/uL 1.0-3.5 [facility] Abs. Gillespie. 1.65 x10E3/uL 0.1-1.0 [facility] Abs. Eosin. 0.03 x10E3/uL 0.1-0.7 [facility] Abs. Baso. 0.04 x10E3/uL 0.0-0.1 [facility] Abs. Imm. Gran. 0.48 x10E3/uL 0.0-0.1 [facility] ANRBC% 0 % 0 [facility] DIFFERENTIAL CONFIRMED BY SLIDE REVIEW. WBC MORPHOLOGY 1+ [facility] WBC MORPHOLOGY EXPECTED RESULT:NORMAL = NO REMARKABLE MORPHOLOGYAny findings other than Normal will be reported and areconsidered Abnormal. The significance of Abnormal findingsare to be clinically correlated by the provider. ID Date Data Source [id number] 08/15/2020 09:25:00 AM EST [facility] Name Value Range Interpretation Code Description Data Sanjuana rce(s) Supporting Document(s) VANCOMYCIN TROU 15.7 ug/mL 5-10 [facility] FOR SKIN AND SKIN STRUCTURE INFECTIONS, GUIDELINES RECOMMENDA TROUGH OF 10. FOR SEVERE INFECTIONS, (PNEUMONIA, OSTEOMYELITIS, MENINGITISAND BACTEREMIA) A TARGET TROUGH OF 15 TO 20 IS RECOMMENDED. ID Date Data Source [id number] 08/15/2020 09:13:00 AM EST [facility] Name Value Range Interpretation Code Description Data Sanjuana e(s) Supporting Document(s) C-REACTIVE PROT 1.54 mg/dL 0.0-0.49 H [facility] ID Date Data Source [id number] 08/15/2020 09:13:00 AM EST [facility] Name Value Range Interpretation Code Description Data Sanjuana e(s) Supporting Document(s) GLU 144 mg/dL 70-110 [facility] Patients taking Sulfasalazine may have f alsely depressedGlucose levels. Patients taking Sulfapyridine may havefalsely elevated Glucose levels. Patients should be drawnfor Glucose before the initial administration of eitherdrug. BUN 18 mg/dL 7-23 [facility] CRE 0.714 mg/dL 0.500-1.300 [facility] GFR > 60 mL/min [facility] CHLORIDE 100 mmol/L 99-110 [facility] NA 135 mmol/L 136-147 [facility] POTASSIUM 4.9 mmol/L 3.5-5.1 [facility] TCO2 30 mmol/L 20-33 [facility] ANION GAP 9.9 10.0-20.0 L [facility] CA 8.8 mg/dL 8.3-10.7 [facility] ALKALINE PHOS 80 U/L 45-117 [facility] TP 6.4 g/dL 6.0-7.8 [facility] ALB 2.5 g/dL 3.5-5.0 [facility] ESRD Dialysis patient Albumin reference range: 2.9-4.4 g/dL GL 3.9 g/dL 2.3-3.5 [facility] A/G 0.6 1.0-2.5 L [facility] T. BILIRUBIN 0.6 mg/dL 0.1-1.1 [facility] [employer] [place] Total Bilirubin is n ot recommended forpatients undergoing treatment with eltrombopag (Promacta)due to the potential for falsely elevated results. ALTI 33 U/L 6-54 [facility] Patients taking Sulfasalazine and/or Sul fapyridine may havefalsely depressed ALT levels. Patients should be drawn forALT before the initial administration of either drug. AST 23 U/L 8-40 [facility] Patients taking Sulfasalazine and/or Sul fapyridine may havefalsely depressed AST levels. Patients should be drawn forAST before the initial administration of either drug. ID Date Data Source [id number] 08/15/2020 09:13:00 AM EST [facility] Name Value Range Interpretation Code Description Data Sanjuana rce(s) Supporting Document(s) MAGNESIUM 1.7 mg/dL 1.6-2.6 [facility] ID Date Data Source [id number] 08/15/2020 09:13:00 AM EST [facility] Name Value Range Interpretation Code Description Data Sanjuana rce(s) Supporting Document(s) DENILSON 3.6 mg/dL 2.5-4.5 [facility] ID Date Data Source [id number] 08/15/2020 06:09:00 AM EST [facility] Name Value Range Interpretation Code Description Data Sanjuana rce(s) Supporting Document(s) FGLU 165 mg/dL 70-110 [facility] ID Date Data Source [id number] 08/14/2020 08:37:00 PM EST [facility] Name Value Range Interpretation Code Description Data Sanjuana rce(s) Supporting Document(s) FGLU 360 mg/dL 70-110 [facility] ID Date Data Source [id number] 08/14/2020 05:43:00 PM EST [facility] COMMENTS TO LAB: CRITICAL HIGH Name Value Range Interpretation Code Description Data Sanjuana rce(s) Supporting Document(s) GLU 315 mg/dL 70-110 [facility] Patients taking Sulfasalazine may have f alsely depressedGlucose levels. Patients taking Sulfapyridine may havefalsely elevated Glucose levels. Patients should be drawnfor Glucose before the initial administration of eitherdrug. ID Date Data Source [id number] 08/14/2020 03:36:00 PM EST [facility] Name Value Range Interpretation Code Description Data [facility] rce(s) Supporting Document(s) FGLU 276 mg/dL 70-110 [facility] ID Date Data Source [id number] 08/14/2020 08:36:00 AM [facility] [place], [place] [id number] NOTEPATIENT NAME: DIANA OLIVERA PHYSICIAN: KAMLA LANIER MDAUTHOR: Huy Lanier MD. DATE: 08/11/20 MR#: [id number] NOTE DATE: 08/14/20 RM#: [id number] TIME: 0840 : 55SubjectiveCC/Hx Present IllnessShortness of breathEvents Since Last EntryPt seen and examined at the bedside. Pt was transferred to the floor. He is on5 L of oxygen via nasal cannula and he is able to maintain his oxygenation. Heappears comfortable. Case management has reached out to [facility] if they have a bed for him (he came to us from [facility]). Portia is working on disposition.ObjectiveVital SignsVital Signs-24 HRS08/13845 0854 0940 1000 1215Temp 96.8 96.8Pulse 89RespB/P 152/71 123/60B/P MeanPulse OxO2 Delivery VapothermO2 Flow Rate 25L 30%TrU77308/13334506 5082 2045 2045 2147Temp 96.8 98.0 97.6Pulse 88 90 91Resp 22 18B/P 140/79 154/80 154/80 154/80B/P MeanPulse Ox 96 95O2 Delivery Nasal cannula Nasal cannulaO2 Flow Rate 5L 3HlC60708/14188949 0559Temp 97.1 97.6Pulse 85 86Resp 18 18B/P 146/79 143/78B/P MeanPulse Ox 93 91O2 Delivery Nasal cannula Nasal cannulaO2 Flow Rate 5 3LqR1Qfydnp/OutputIntake/Output Summary 24 hours08/13 1900 08/14 0700Intake Total [...] POPantoprazole Sodium (Protonix) 40 MG DAILY POTiotropium [place] (Spiriva) 1 puffDAILY INHAlbuterol Sulfate (Ventolin) 1 [...] x 3Psych/Mental Status mood neutralResultsLaboratory DataRecent Labs-24 hours08/13148408 8453 0540 0541ChemistrySodium (136 - 147 mmol/L) 141Potassium [...] positive for MRSA- IV vancomycin 1250 mg z35Hhbutpcesk NotesDVT prophylaxis: Eliquis as aboveResuscitation status Full codeDATE SIGNED: 08/14/20 Electronically SignedTIME SIGNED: 1902 KALMA LANIER MD Name Value Range Interpretation Code Description Data [facility](s) Supporting Document(s) ID Date Data Source [id number] 08/14/2020 07:52:00 AM EST [facility] Name Value Range Interpretation Code Description Data [facility] r[facility](s) Supporting Document(s) FGLU 133 mg/dL 70-110 [facility] ID Date Data Source [id number] 08/14/2020 06:48:00 AM EST [facility] Name Value Range Interpretation Code Description Data [facility](s) Supporting Document(s) WBC 13.08 x10E3/uL 4.0-10.5 [facility] RBC 5.32 x10E6/uL 4.70-6.00 N [facility] Hemoglobin 12.5 g/dL 14.0-18.0 L [facility] Hematocrit 41.4 % 42.0-52.0 L [facility] MCV 77.8 fL 81.0-99.0 L [facility] MCH 23.5 pg 27.0-31.0 L [facility] MCHC 30.2 g/dL 32.7-35.6 L [facility] RDW 18.5 % 11.5-14.0 H [facility] Platelet count 494 x10E3/uL 150-450 H [facility] ital MPV 9.5 fl 6.9-9.5 N [facility] Neutrophils 75.3 % 34-64 H [facility] Lymphocytes 11.2 % 25-45 L [facility] Monocytes 11.5 % 1.7-10.6 [facility] Eosinophils 0 % 0.4-7.0 [facility] Basophils 0.2 % 0.1-2.0 [facility] Imm. Gran. 1.8 % 0.1-2.0 [facility] Abs. Neutro. 9.86 x10E3/uL 1.2-7.6 [facility] Abs. Lymph. 1.46 x10E3/uL 1.0-3.5 [facility] Abs. Gillespie. 1.51 x10E3/uL 0.1-1.0 [facility] Abs. Eosin. 0.00 x10E3/uL 0.1-0.7 [facility] Abs. Baso. 0.02 x10E3/uL 0.0-0.1 [facility] Abs. Imm. Gran. 0.23 x10E3/uL 0.0-0.1 [facility] SLIDE REVIEW PERFORMED.NO ABNORMAL CELLS NOTED. ANRBC% 0 % 0 N [facility] ID Date Data Source [id number] 08/14/2020 07:18:00 AM EST [facility] Name Value Range Interpretation Code Description Data Sanjuana rce(s) Supporting Document(s) C-REACTIVE PROT 2.48 mg/dL 0.0-0.49 [facility] ID Date Data Source [id number] 08/14/2020 07:18:00 AM EST [facility] Name Value Range Interpretation Code Description Data Sanjuana rce(s) Supporting Document(s) MAGNESIUM 1.8 mg/dL 1.6-2.6 N [facility] ID Date Data Source [id number] 08/14/2020 07:18:00 AM EST [facility] Name Value Range Interpretation Code Description Data Sanjuana rce(s) Supporting Document(s) DENILSON 3.7 mg/dL 2.5-4.5 [facility] ID Date Data Source [id number] 08/14/2020 07:18:00 AM EST [facility] Name Value Range Interpretation Code Description Data Sanjuana rce(s) Supporting Document(s) GLU 137 mg/dL 70-110 [facility] Patients taking Sulfasalazine may have f alsely depressedGlucose levels. Patients taking Sulfapyridine may havefalsely elevated Glucose levels. Patients should be drawnfor Glucose before the initial administration of eitherdrug. BUN 14 mg/dL 7-23 [facility] CRE 0.656 mg/dL 0.500-1.300 [facility] GFR > 60 mL/min [facility] CHLORIDE 101 mmol/L 99-110 [facility] NA 141 mmol/L 136-147 [facility] POTASSIUM 4.5 mmol/L 3.5-5.1 [facility] TCO2 32 mmol/L 20-33 [facility] ANION GAP 12.5 10.0-20.0 [facility] CA 8.5 mg/dL 8.3-10.7 [facility] ALKALINE PHOS 67 U/L 45-117 [facility] TP 6.5 g/dL 6.0-7.8 [facility] ALB 2.5 g/dL 3.5-5.0 [facility] ESRD Dialysis patient Albumin reference range: 2.9-4.4 g/dL GL 4.0 g/dL 2.3-3.5 [facility] A/G 0.6 1.0-2.5 [facility] T. BILIRUBIN 0.4 mg/dL 0.1-1.1 [facility] [place] Total Bilirubin is n ot recommended forpatients undergoing treatment with eltrombopag (Promacta)due to the potential for falsely elevated results. ALTI 34 U/L 6-54 [facility] Patients taking Sulfasalazine and/or Sul fapyridine may havefalsely depressed ALT levels. Patients should be drawn forALT before the initial administration of either drug. AST 17 U/L 8-40 [facility] Patients taking Sulfasalazine and/or Sul fapyridine may havefalsely depressed AST levels. Patients should be drawn forAST before the initial administration of either drug. ID Date Data Source [id number] 08/14/2020 09:21:00 AM EST [facility] Name Value Range Interpretation Code Description Data Sanjuana rce(s) Supporting Document(s) FGLU 281 mg/dL 70-110 [facility] ID Date Data Source [id number] 08/13/2020 06:45:00 PM EST [facility] Name Value Range Interpretation Code Description Data Sanjuana rce(s) Supporting Document(s) FGLU 260 mg/dL 70-110 [facility] ID Date Data Source [id number] 08/13/2020 12:37:00 PM EST [facility] Name Value Range Interpretation Code Description Data Sanjuana rce(s) Supporting Document(s) FGLU 246 mg/dL 70-110 [facility] ID Date Data Source [id number] 08/13/2020 08:09:00 AM EST [facility] [address] [id number] NOTEPATIENT NAME: DIANA OLIVERA PHYSICIAN: KAMLA LANIER, MDAUTHOR: Huy Lanier MD. DATE: 08/11/20 MR#: [id number] NOTE DATE: 08/13/20 RM#: [id number] TIME: 814 [...] 96 87O2 Delivery VapothermO2 Flow Rate 35L 40%CcH52108/12200 1201 1301 1401 1600Temp 98.9Pulse 82 83 84 81Resp 17 17 19B/P 140/70 131/69 144/69 145/61B/P MeanPulse Ox 94 94 92 95O2 DeliveryO2 Flow LmiqAqK189/27 08/12 08/12 08/12 07/18 29227 1700 1800 1809 1922Temp 97.8 98.9Pulse 94 85Resp 24 20B/P 143/72 148/51B/P MeanPulse Ox 91 93O2 Delivery VapothermO2 Flow Rate 40%NeR11808/12 2200Temp 98.4Pulse 79 85 77 79Resp 19B/P 158/73 158/78 165/73 157/76B/P MeanPulse Ox 93 95 95O2 DeliveryO2 Flow ElxuMnP08308/12 0000 0001 0101 0200Temp 98.2 97.2 98.0Pulse 76 78RespB/P 151/71 150/76B/P MeanPulse Ox 95 94O2 DeliveryO2 Flow DnqtRyS70508/13201 0302 0400 0401 0509Temp 97.8 97.8Pulse 76 74 80RespB/P 143/73 141/75 159/76B/P MeanPulse Ox 93 94 94O2 DeliveryO2 Flow RmpxBrI293/045605EezuLkqtj 78Resp 18B/P 140/68B/P MeanPulse Ox 94O2 DeliveryO2 Flow YgooZlS7Zzbxbf/OutputIntake/Output Summary 24 hours08/12 1 900 08/13 0700Intake [...] (Saline Flush Syr(5ML)) 5 ML Q12H IVTiotropium [place] (Spiriva) 1 puffDAILY INHInsulin Aspart (Humalog Insulin) [...] x 3Psych/Mental Status mood neutralResultsLaboratory DataRecent Labs-24 hours08/12903910 8013 2014 0504ChemistrySodium (136 - 147 mmol/L) 139Potassium [...] positive for MRSA- IV vancomycin 1500 mg r79Dmnjnbexer NotesDVT prophylaxis: Eliquis as aboveResuscitation status Full codeDATE SIGNED: 08/13/20 Electronically SignedTIME SIGNED: 1902 KAMLA LANIER MD Name Value Range Interpretation Code Description Data Sanjuana rce(s) Supporting Document(s) ID Date Data Source [id number] 08/13/2020 06:00:00 AM EST [facility] Name Value Range Interpretation Code Description Data Sanjuana rce(s) Supporting Document(s) C-REACTIVE PROT 4.79 mg/dL 0.0-0.49 [facility] [id number] 08/13/2020 06:00:00 AM EST [facility] Name Value Range Interpretation Code Description Data Sanjuana rce(s) Supporting Document(s) MAGNESIUM 1.8 mg/dL 1.6-2.6 [facility] ID Date Data Source [id number] 08/13/2020 06:00:00 AM EST [facility] Name Value Range Interpretation Code Description Data Sanjuana rce(s) Supporting Document(s) DENILSON 2.4 mg/dL 2.5-4.5 [facility] ID Date Data Source [id number] 08/13/2020 06:00:00 [facility] Value [facility] Interpretation Code Description Data Sanjuana rce(s) Supporting Document(s) GLU 119 mg/dL 70-110 [facility] Patients taking Sulfasalazine may have f alsely depressedGlucose levels. Patients taking Sulfapyridine may havefalsely elevated Glucose levels. Patients should be drawnfor Glucose before the initial administration of eitherdrug. BUN 14 mg/dL 7-23 [facility] CRE 0.556 mg/dL 0.500-1.300 [facility] GFR > 60 mL/min [facility] CHLORIDE 99 mmol/L 99-110 [facility] NA 139 mmol/L 136-147 [facility] POTASSIUM 4.0 mmol/L 3.5-5.1 [facility] TCO2 33 mmol/L 20-33 [facility] ANION GAP 11.0 10.0-20.0 [facility] CA 8.4 mg/dL 8.3-10.7 [facility] ALKALINE PHOS 71 U/L 45-117 [facility] TP 6.2 g/dL 6.0-7.8 [facility] ALB 2.2 g/dL 3.5-5.0 [facility] ESRD Dialysis patient Albumin reference range: 2.9-4.4 g/dL GL 4.0 g/dL 2.3-3.5 H [facility] A/G 0.6 1.0-2.5 [facility] T. BILIRUBIN 0.4 mg/dL 0.1-1.1 [facility] [place] Total Bilirubin is n ot recommended forpatients undergoing treatment with eltrombopag (Promacta)due to the potential for falsely elevated results. ALTI 39 U/L 6-54 [facility] Patients taking Sulfasalazine and/or Sul fapyridine may havefalsely depressed ALT levels. Patients should be drawn forALT before the initial administration of either drug. AST 23 U/L 8-40 [facility] Patients taking Sulfasalazine and/or Sul fapyridine may havefalsely depressed AST levels. Patients should be drawn forAST before the initial administration of either drug. ID Date Data Source [id number] 08/13/2020 05:31:00 AM [facility] Name Value Range Interpretation Code Description Data Sanjuana rce(s) Supporting Document(s) WBC 10.48 x10E3/uL 4.0-10.5 [facility] l RBC 4.87 x10E6/uL 4.70-6.00 [facility] Hemoglobin 11.7 g/dL 14.0-18.0 [facility] Hematocrit 37.4 % 42.0-52.0 [facility] MCV 76.8 fL 81.0-99.0 [facility] MCH 24.0 pg 27.0-31.0 [facility] MCHC 31.3 g/dL 32.7-35.6 [facility] RDW 18.1 % 11.5-14.0 [facility] Platelet count 413 x10E3/uL 150-450 [facility] ital MPV 9.1 fl 6.9-9.5 [facility] Neutrophils 75.1 % 34-64 H [facility] Lymphocytes 11.5 % 25-45 [facility] Monocytes 12.1 % 1.7-10.6 H [facility] Eosinophils 0 % 0.4-7.0 [facility] Basophils 0.1 % 0.1-2.0 [facility] Imm. Gran. 1.2 % 0.1-2.0 [facility] Abs. Neutro. 7.87 x10E3/uL 1.2-7.6 [facility] Abs. Lymph. 1.20 x10E3/uL 1.0-3.5 [facility] Abs. Gillespie. 1.27 x10E3/uL 0.1-1.0 [facility] Abs. Eosin. 0.00 x10E3/uL 0.1-0.7 [facility] Abs. Baso. 0.01 x10E3/uL 0.0-0.1 [facility] Abs. Imm. Gran. 0.13 x10E3/uL 0.0-0.1 [facility] ANRBC% 0 % 0 [facility] ID Date Data Source [id number] 08/13/2020 01:04:00 AM EST [facility] Name Value Range Interpretation Code Description Data Sanjuana rce(s) Supporting Document(s) FGLU 324 mg/dL 70-110 [facility] ID Date Data Source [id number] 08/12/2020 04:31:00 PM EST [facility] Name Value Range Interpretation Code Description Data Sanjuana rce(s) Supporting Document(s) FGLU 220 mg/dL 70-110 [facility] ID Date Data Source [id number] 08/12/2020 02:47:00 PM EST [facility] Name Value Range Interpretation Code Description Data Sanjuana rce(s) Supporting Document(s) FGLU 237 mg/dL 70-110 [facility] ID Date Data Source [id number] 08/12/2020 08:27:00 AM EST [facility] [address] [id number] NOTEPATIENT NAME: DIANA OLIVERA PHYSICIAN: TASNEEM WALKER, MDAUTHOR: Huy Lanier MD. DATE: 08/11/20 MR#: [id number] NOTE DATE: 08/12/20 RM#: [id number] TIME: 0838 : 55SubjectiveCC/Hx Present IllnessShortness of [...] Ox 99 95 96O2 Delivery VAPOTHERMO2 Flow RslqSlU72408/11 1826 1999 1999 2012Temp 97.2 97.4 98.4Pulse 76 73 73 73Resp 22 13 14B/P 138/62 138/62 135/64 135/64B/P MeanPulse Ox 91 96 95O2 DeliveryO2 Flow VolcFeQ69308/11055 2100 2200 2202 2300Temp 9 7.8 98.2 98.0 97.8Pulse 78 78Resp 10 18 16B/P 132/64 138/64 130/62B/P MeanPulse Ox 96 90 97O2 Delivery Vapotherm Vapotherm Vapotherm VapothermO2 Flow Rate 60% 60 60 93QfH85108/11356 0000 0100 0200 0300Temp 97.8Pulse 72 73 72 73Resp 14 15B/P 139/61 142/60 136/64 144/64B/P MeanPulse Ox 93 96 97 96O2 DeliveryO2 Flow GoykVrZ26108/12400 0400 0500 0553 0742Temp 97.4 97.8Pulse 72 75 84Resp 16 16B/P 138/93 142/92 143/60B/P MeanPulse Ox 92 97O2 DeliveryO2 Flow XryeCtU8Uzlven/OutputIntake/Output Summary 24 hours08/11 19008/12 0700Intake Total 1160 610Output Total 1300 1000Balance [...] (Saline Flush Syr(5ML)) 5 ML Q12H IVTiotropium [place] (Spiriva) 1 puffDAILY INHInsulin Aspart (Humalog Insulin) [...] legsNeurological alert, oriented x 3ResultsLaboratory DataRecent Labs-24 hours08/11022729 3138 1015 1130 1134Blood GasABG pH (7.360 - [...] 342 H 325 H 262 H 246 H01/668916VxgcungijKcrgvz (136 - 147 mmol/L) 144Potassium (3.5 - [...] rce(s) Supporting Document(s) ID Date Data Source [id number] 08/12/2020 06:50:00 AM EST [facility] Name Value Range Interpretation Code Description Data Sanjuana rce(s) Supporting Document(s) C-REACTIVE PROT 12.80 mg/dL 0.0-0.49 [facility] ID Date Data Source [id number] 08/12/2020 06:50:00 AM EST [facility] Name Value Range Interpretation Code Description Data Sanjuana rce(s) Supporting Document(s) MAGNESIUM 1.6 mg/dL 1.6-2.6 N [facility] ID Date Data Source [id number] 08/12/2020 06:50:00 AM EST [facility] Name Value Range Interpretation Code Description Data Sanjuana rce(s) Supporting Document(s) DENILSON 1.8 mg/dL 2.5-4.5 PL [facility] ID Date Data Source [id number] 08/12/2020 06:50:00 AM EST [facility] Name Value Range Interpretation Code Description Data Sanjuana rce(s) Supporting Document(s) GLU 140 mg/dL 70-110 [facility] Patients taking Sulfasalazine may have f alsely depressedGlucose levels. Patients taking Sulfapyridine may havefalsely elevated Glucose levels. Patients should be drawnfor Glucose before the initial administration of eitherdrug. BUN 19 mg/dL 7-23 [facility] CRE 0.556 mg/dL 0.500-1.300 [facility] GFR > 60 mL/min [facility] CHLORIDE 103 mmol/L 99-110 [facility] NA 144 mmol/L 136-147 [facility] POTASSIUM 3.7 mmol/L 3.5-5.1 [facility] TCO2 37 mmol/L 20-33 H [facility] ANION GAP 7.7 10.0-20.0 [facility] CA 8.5 mg/dL 8.3-10.7 [facility] ALKALINE PHOS 66 U/L 45-117 [facility] TP 6.0 g/dL 6.0-7.8 [facility] ALB 2.0 g/dL 3.5-5.0 [facility] ESRD Dialysis patient Albumin reference range: 2.9-4.4 g/dL GL 4.0 g/dL 2.3-3.5 H [facility] A/G 0.5 1.0-2.5 [facility] T. BILIRUBIN 0.3 mg/dL 0.1-1.1 [facility] [employer] [facility] [place] Total Bilirubin is n ot recommended forpatients undergoing treatment with eltrombopag (Promacta)due to the potential for falsely elevated results. ALTI 44 U/L 6-54 [facility] Patients taking Sulfasalazine and/or Sul fapyridine may havefalsely depressed ALT levels. Patients should be drawn forALT before the initial administration of either drug. AST 30 U/L 8-40 [facility] Patients taking Sulfasalazine and/or Sul fapyridine may havefalsely depressed AST levels. Patients should be drawn forAST before the initial administration of either drug. ID Date Data Source [id number] 08/12/2020 06:24:00 AM EST [facility] Name Value Range Interpretation Code Description Data Sanjuana rce(s) Supporting Document(s) WBC 8.99 x10E3/uL 4.0-10.5 [facility] RBC 4.40 x10E6/uL 4.70-6.00 L [facility] Hemoglobin 10.5 g/dL 14.0-18.0 L [facility] Hematocrit 35.0 % 42.0-52.0 L [facility] MCV 79.5 fL 81.0-99.0 L [facility] MCH 23.9 pg 27.0-31.0 L [facility] MCHC 30.0 g/dL 32.7-35.6 L [facility] RDW 17.6 % 11.5-14.0 [facility] Platelet count 331 x10E3/uL 150-450 [facility] ital MPV 9.1 fl 6.9-9.5 N [facility] Neutrophils 79.9 % 34-64 [facility] Lymphocytes 9.7 % 25-45 L [facility] Monocytes 9.6 % 1.7-10.6 N [facility] Eosinophils 0 % 0.4-7.0 L [facility] Basophils 0.1 % 0.1-2.0 N [facility] Imm. Gran. 0.7 % 0.1-2.0 N [facility] Abs. Neutro. 7.19 x10E3/uL 1.2-7.6 [facility] Abs. Lymph. 0.87 x10E3/uL 1.0-3.5 [facility] Abs. Gillespie. 0.86 x10E3/uL 0.1-1.0 [facility] Abs. Eosin. 0.00 x10E3/uL 0.1-0.7 [facility] Abs. Baso. 0.01 x10E3/uL 0.0-0.1 [facility] Abs. Imm. Gran. 0.06 x10E3/uL 0.0-0.1 N [facility] ANRBC% 0 % 0 N [facility] ID Date Data Source [id number] 08/11/2020 09:00:00 PM [facility] [address] [place] [address] RESPIRATORY CARE REPORT ==== ---------NAME------- NUMBER SEX AGE ADMIT DISC. XRAY# F/C DICKTZ DIANA Ross [id number] M 65 08/10/20 08/11/20 [id number] [id number] E/R DATE OF : 1955 M/R# [id number] #: [id number] TR-06 LOCATION: EMERGENCY DEPT EKG [id number] COMP LETE:08/11/20 06:07 ED 05531 PHYSICIAN: MIRIAM ACUNA Name Value Range Interpretation Code Description Data Sanjuana rce(s) Supporting Document(s) ID Date Data Source [id number] 08/12/2020 12:18:00 AM EST [facility] Name Value Range Interpretation Code Description Data Sanjuana rce(s) Supporting Document(s) FGLU 246 mg/dL 70-110 [facility] ID Date Data Source [id number] 08/12/2020 01:49:00 AM EST [facility] Name Value Range Interpretation Code Description Data Sanjuana rce(s) Supporting Document(s) FGLU 262 mg/dL 70-110 [facility] ID Date Data Source [id number] 08/11/2020 04:29:00 PM EST [facility] Name Value Range Interpretation Code Description Data Sanjuana rce(s) Supporting Document(s) FGLU 325 mg/dL 70-110 [facility] ID Date Data Source [id number] 08/13/2020 11:40:00 AM EST [facility] WBCS IN SMALL NUMBERSMODERATE NUMBERS GR AM-POSITIVE COCCI IN CLUSTERSSMALL NUMBERS YEAST LIKE Name Value Range Interpretation Code Description Data Sanjuana rce(s) Supporting Document(s) ORGANISM [facility] COLONY COUNT N [facility] ID Date Data Source [id number] 08/11/2020 01:00:00 PM EST [facility] WBCS IN SMALL NUMBERSMODERATE NUMBERS GR AM-POSITIVE COCCI IN CLUSTERSSMALL NUMBERS YEAST LIKE Name Value Range Interpretation Code Description Data Sanjuana rce(s) Supporting Document(s) AUGMENTIN >4/2 Results entered -- not verified [facility] GENTAMICIN <=4 Susceptible. Indicates for m icrobiology susceptibilities only. [facility] OXACILLIN >2 Results entered -- not verified [facility] PENICILLIN 2 Results entered -- not verified [facility] VANCOMYCIN 1 Susceptible. Indicates for microbiol ogy susceptibilities only. [facility] ERYTHROMYCIN >4 Results entered -- not verified [facility] CLINDAMYCIN >4 Results entered -- not verified [facility] CEFTRIAXONE >32 Results entered -- not verified [facility] TETRACYCLINE >8 Results entered -- not verified [facility] TRIMETH/SULFAME >2/38 Results entered -- not verified [facility] CIPROFLOXACIN >2 Results entered -- not verified [facility] LEVOFLOX >4 Results entered -- not verified [facility] RIFAMPIN <=1 Susceptible. Indicates for microbiol ogy susceptibilities only. [facility] S= SUSCEPTIBLEI= INTERMEDIATER= RESISTANTESBL= EXTENDED SPECTRUM BETA LACTAMASEBLANK= DATA NOT AVAILABLE, OR DRUG NOT ADVISABLE OR TESTEDMIC= mcg/ml (mg/L) For Blood and CSF Isolates, a beta lactamase test isrecommended for Enterococcus species. Interpretations based on CLSI M100 S-19 breakpoints. ID Date Data Source [id number] 08/11/2020 01:04:00 PM EST [facility] Name Value Range Interpretation Code Description Data Sanjuana rce(s) Supporting Document(s) FGLU 342 mg/dL 70-110 H [facility] ID Date Data Source [id number] 08/11/2020 03:15:00 PM EST [facility] Name Value Range Interpretation Code Description Data Sanjuana rce(s) Supporting Document(s) FGLU 327 mg/dL 70-110 [facility] ID Date Data Source [id number] 08/11/2020 12:47:00 PM EST [facility] Name Value Range Interpretation Code Description Data Sanjuana rce(s) Supporting Document(s) TROPI 0.019 ng/mL 0.000-0.079 N [facility] ID Date Data Source [id number] 08/11/2020 10:18:00 AM EST [facility] [address] [place] [address] PHONE: [phone] FAX: [phone] Name .................. : JAROD Ross Acct Number.................. : [id number] ROOM. ................. : [address] Number ................... : [id number] Stay type ............. : E/R Discharge Date......... ... : Admit Date ......... : 08/10/20 Admit Phys .................... : MIRIAM ACUNA Date of ....... : 1955 Family Phys ................... : ADY Phone .................. : [phone] Age ................................ : 65 Film# .................. .:[id number] Sex ................................. : M Unsigned transcriptions are preliminary reports and do not represent a medical or legal document CHEST PORTABLE [id number] COMPLETE:08/10/20 19:33 [facility] 2979 Reason(s): Congestion PORTABLE CHEST X-RAY: INDICATION: Congestion. FINDINGS: There is severe bilateral infiltrates in the lungs. The cardiac silhouette is normal in size and contour. No acute osseous abnormality. IMPRESSION: Severe bilateral infiltrates. Electronically Reviewed and Signed By Patric Toscano M.D. , 08/11/20 10:18, [place] Transcribe Initials: DZ , Transcribe Date: 08/11/20 00:06, Dictation Date: Copy for: EMERGENCY DEPT via modem Copy for: 710 MED REC DISCHARGED Page 1 of 1 Name Value Range Interpretation Code Description Data Sanjuana rce(s) Supporting Document(s) ID Date Data Source [id number] 08/11/2020 10:26:00 AM EST [facility] Does the pt. have a limb restriction? NR estricted limb verified YO2 % or Liter Flow: 40L/80%Does the Pt have an A-Line: NAfter Ambulation: N Name Value Range Interpretation Code Description Data Sanjuana rce(s) Supporting Document(s) PO2 63.4 mmHg 80-100 L [facility] PCO2 64.0 mmHg 35-50 H [facility] PH 7.337 7.360-7.440 L [facility] HCO3(ABG) 33.5 mmol/L 20-33 H [facility] %SATO2 91.5 % 95-100 L [facility] BASE EXCESS 6.0 mmol/L -3 TO +3 N [facility] DEVICE/FIO2 40L/80% [facility] tHb 11.6 g/dL 12-18 L [facility] FO2Hb 91.0 % 94.0-97.0 L [facility] FMETHb 0.2 % 0.0-1.5 N [facility] CO 0.3 % N [facility] CARBOXYHEMOGLOBIN INTERPRET ATION % TOTAL HEMOGLOBIN NONSMOKER: <2% AVERAGE SMOKER: 4-5% 1-2 PACKS/DAY HEAVY SMOKER 8-12% >2 PACKS/DAY POTENTIALLY TOXIC: >15% ID Date Data Source [id number] 08/11/2020 10:32:00 AM EST [facility] Name Value Range Interpretation Code Description Data Sanjuana rce(s) Supporting Document(s) C-REACTIVE PROT 25.00 mg/dL 0.0-0.49 H [facility] ital ID Date Data Source [id number] 08/11/2020 02:25:00 PM EST [facility] Name Value Range Interpretation Code Description Data Sanjuana rce(s) Supporting Document(s) FGLU 302 mg/dL 70-110 H [facility] ID Date Data Source [id number] 08/17/2020 10:23:00 AM EST [facility] Name Value Range Interpretation Code Description Data Sanjuana rce(s) Supporting Document(s) [facility] ID Date Data Source [id number] 08/17/2020 10:23:00 AM EST [facility] Name Value Range Interpretation Code Description Data Sanjuana rce(s) Supporting Document(s) [facility] ID Date Data Source [id number] 08/11/2020 09:13:00 AM EST [facility] Name Value Range Interpretation Code Description Data Sanjuana rce(s) Supporting Document(s) VITAMIN D 25 60 ng/mL 30-100 N [facility] ID Date Data Source [id number] 08/11/2020 07:12:00 AM EST [facility] Name Value Range Interpretation Code Description Data Sanjuana rce(s) Supporting Document(s) MAGNESIUM 2.1 mg/dL 1.6-2.6 N [facility] ID Date Data Source [id number] 08/11/2020 06:57:00 AM EST [facility] Name Value Range Interpretation Code Description Data Sanjuana rce(s) Supporting Document(s) WBC 6.20 x10E3/uL 4.0-10.5 N [facility] RBC 4.18 x10E6/uL 4.70-6.00 L [facility] Hemoglobin 10.2 g/dL 14.0-18.0 [facility] Hematocrit 34.5 % 42.0-52.0 [facility] MCV 82.5 fL 81.0-99.0 N [facility] MCH 24.4 pg 27.0-31.0 L [facility] MCHC 29.6 g/dL 32.7-35.6 L [facility] RDW 17.6 % 11.5-14.0 H [facility] Platelet count 257 x10E3/uL 150-450 N [facility] ital MPV 9.8 fl 6.9-9.5 H [facility] Neutrophils 84.9 % 34-64 H [facility] Lymphocytes 6.8 % 25-45 L [facility] Monocytes 6.6 % 1.7-10.6 N [facility] Eosinophils 0 % 0.4-7.0 L [facility] Basophils 0.2 % 0.1-2.0 [facility] Imm. Gran. 1.5 % 0.1-2.0 [facility] Abs. Neutro. 5.27 x10E3/uL 1.2-7.6 [facility] Abs. Lymph. 0.42 x10E3/uL 1.0-3.5 [facility] Abs. Gillespie. 0.41 x10E3/uL 0.1-1.0 [facility] Abs. Eosin. 0.00 x10E3/uL 0.1-0.7 [facility] Abs. Baso. 0.01 x10E3/uL 0.0-0.1 [facility] Imm. Gran. 0.09 x10E3/uL 0.0-0.1 N [facility] DIFFERENTIAL CONFIRMED BY SLIDE REVIEW.0 08/11/20 0656: Abs. Imm. Gran. previously reported as: 0.09 x10E3/uL ANRBC% 0 % 0 [facility] 1+ ANISOCYTOSIS1+ HYPOCHROMICRBC MORPHOL OGY EXPECTED RESULTS: NORMAL = NORMOCHROMIC, NORMOCYTIC CELLSAny findings other than Normal will be reported and areconsidered Abnormal. The significance of Abnormalfindings are to be clinically correlated by the provider. ID Date Data Source [id number] 08/11/2020 06:42:00 AM [facility] Value Range Interpretation Code Description Data Sanjuana rce(s) Supporting Document(s) C-REACTIVE PROT 25.70 mg/dL 0.0-0.49 H [facility] ital ID Date Data Source [id number] 08/11/2020 06:39:00 AM EST [facility] Name Value Range Interpretation Code Description Data Sanjuana rce(s) Supporting Document(s) GLU 275 mg/dL 70-110 [facility] Patients taking Sulfasalazine may have f alsely depressedGlucose levels. Patients taking Sulfapyridine may havefalsely elevated Glucose levels. Patients should be drawnfor Glucose before the initial administration of eitherdrug. BUN 34 mg/dL 7-23 [facility] CRE 1.050 mg/dL 0.500-1.300 [facility] GFR > 60 mL/min [facility] CHLORIDE 105 mmol/L 99-110 [facility] NA 142 mmol/L 136-147 [facility] POTASSIUM 4.6 mmol/L 3.5-5.1 [facility] TCO2 33 mmol/L 20-33 [facility] ANION GAP 8.6 10.0-20.0 [facility] CA 8.7 mg/dL 8.3-10.7 [facility] ALKALINE PHOS 70 U/L 45-117 [facility] TP 6.5 g/dL 6.0-7.8 [facility] ALB 1.8 g/dL 3.5-5.0 [facility] ESRD Dialysis patient Albumin reference range: 2.9-4.4 g/dL GL 4.7 g/dL 2.3-3.5 [facility] A/G 0.4 1.0-2.5 [facility] T. BILIRUBIN 0.3 mg/dL 0.1-1.1 [facility] The Dimension [place] Total Bilirubin is n ot recommended forpatients undergoing treatment with eltrombopag (Promacta)due to the potential for falsely elevated results. ALTI 42 U/L 6-54 [facility] Patients taking Sulfasalazine and/or Sul fapyridine may havefalsely depressed ALT levels. Patients should be drawn forALT before the initial administration of either drug. AST 26 U/L 8-40 [facility] Patients taking Sulfasalazine and/or Sul fapyridine may havefalsely depressed AST levels. Patients should be drawn forAST before the initial administration of either drug. ID Date Data Source [id number] 08/11/2020 06:39:00 AM EST [facility] Name Value Range Interpretation Code Description Data Sanjuana rce(s) Supporting Document(s) TROPI 0.020 ng/mL 0.000-0.079 [facility] ID Date Data Source [id number] 08/11/2020 06:32:00 AM EST [facility] Name Value Range Interpretation Code Description Data Sanjuana rce(s) Supporting Document(s) LACTIC ACID INA 1.5 mmol/L 0.4-2.0 [facility] ID Date Data Source [id number] 08/11/2020 04:52:00 AM EST [facility] [address] [id number] AND PHYSICALPATIENT NAME: DIANA OLIVERA MR#: [id number] PHYSICIAN: ABBIE BECERRIL MDAUTHOR: Tasneem Walker MD DATE: 08/11/20 RM#: [id number] & PHYSICAL DATE: 08/11/20 : 55EVALUATION TIME: 0548HistoryChief Complaint/Admit ReasonShortness of breathHistory of Presenting [id number]-lrlh-hrb male with multiple medical problems listed below who presents tot ED at [facility] with complaints of dyspnea and was obtundedinitially but turned around and was alert and oriented x3. Patient was alsodiaphoretic and his blood pressures were initially 90s over 50s but with IVfluids it improved to 97/56. Fever of 101.1. Lactic acid normal. [facility] apparently was noted to have O2 sats in the 70s at [facility]. [facility] [place] [facility] with O2 sats 94 to 95%. Rapid COVID 19 test was positive, andinflammatory markers i.e. ferritin, LDH, CRP were elevated also D-dimer waselevated. Chest x-ray revealed bilateral pneumonia likely from COVID- 19.Patient was given remdesivir, dexamethasone, ceftriaxone and azithromycin.Patient is on Eliquis for atrial fibrillation. Patient was recently treated [facility] from 07/07 to 07/14/2021 with acute on chronic respiratoryfailure due to suspected COVID 19 viral pneumonia, hospital course was alsocomplicated by staph hominis bacteremia 2 out of 4 bottles was treated with 14-day course of IV vancomycin per ID recommendations. [facility] because he did not have anyrespiratory [...] pain, frequency.EndocrineDenies: polydipsia.NeurologicalDenies: lightheaded.PsychDenies: anxiety.ExamVital SignsVital Signs-24 HRS01/760083Hhdx 97.8Pulse 67Resp 13B/P 107/55B/P MeanPulse Ox 99O2 DeliveryO2 Flow DnwaPlN3Tnstoors ExaminationGeneral Appearance no acute distress, afebrile, alert, [...] 3Skin AssessmentSkin dry, warmData ReviewLaboratory DataRecent Labs-48 hours/[id number] Glucose (70 - 110 mg/dL) 942Isqjrhcbjzhv06/26 0501 BLOOD: Blood Culture - ORDImagingChest x-ray report from [facility].Severe bilateral pneumonia.Assessment/PlanDiagnosis/Problem1. Acute respiratory failure with hypoxiaA&PHypoxic respiratory failure secondary to COVID-19 viral pneumonia. On 50%Ventimask patient O2 sats were 83%-Patient requiring 100% nonrebreather with O2 sats 98 to 99%-Continue with remdesivir-Continue with dexamethasone-Continue with ceftriaxone-Continue with azithromycin-Continue with albuterol and Spiriva -Blood culture sent for fevers.2. Pneumonia due to COVID-19 virusA&PChest x-ray showing bilateral pneumonia, patient recently treated for COVID-19viral pneumonia at [facility]. Tested positive for COVID-19 at [facility].-Treatment same as above in problem #1.3. DiabetesA&P-Patient [...] VTE? NoDATE SIGNED: 08/31/20 Electronically SignedTIME SIGNED: 0421 TASNEEM WALKER MD Name Value Range Interpretation Code Description Data Sanjuana rce(s) Supporting Document(s) ID Date Data Source [id number] 08/11/2020 03:15:00 AM EST [facility] Name Value Range Interpretation Code Description Data Sanjuana rce(s) Supporting Document(s) FGLU 104 mg/dL 70-110 [facility] ID Date Data Source [id number] 08/10/2020 06:53:00 PM [facility] 1 OrderSheet [facility] Emergency Department [address] [place] [address] Phone #: ext- [phone] 08/10/2020 18:53 Patient: [...] Flores RN, M.D.;PT/PTT STAT 19:08/10/2020 19:11 Rigo Flores RN, M.D.;Troponin-T STAT 19:08/10/2020 19:11 Rigo Flores RN, M.D.;BNP STAT 19:08/10/2020 19:12 Rigo Flores RN, M.D.;Lactic Acid STAT 19:08/10/2020 19:12 Rigo Flores RN, M.D.;Blood Culture STAT 19:07 08/10/2020 19:12 Hdjuuo39q X2 (Rigo Sewell RN19:07 08/10/2020) Geraldine;Blood Culture STAT 19:07 08/10/2020 19:19 Lqwewa14o X2 (Rigo Sewell RN19:17 08/10/2020) Geraldine;Venous Blood Gas STAT 19:08 08/10/2020 19:12 Rigo Flores RN, M.D.;D-Dimer STAT 19:11 08/10/2020 19:23 Bonnie, 2 OrderSheet [facility] Emergency Department [address] [place] [address] Phone #: ext- [phone] 08/10/2020 18:53 Patient: [...] Ge RNgm (HIGH ALERT M.D.; 3 OrderSheet [facility] Emergency Department [address] [place] [address] Phone #: ext- [phone] 08/10/2020 18:53 Patient: DIANA OLIVERA Sex: M : 1955 Age: 65yMEDICATION, X1)Dexamethasone 19:08 08/10/2020 19:30 PeterIVP 10 mg Rigo Ge RN, M.D.;Remdesivir 200 mg 19:09 08/10/2020 20:39 PeterIV 200 mg (ADD to Rigo Ge RN250 mL NS, Infuse M.D.;at 250 mL/hr)cefTRIAXone 19:09 08/10/2020 20:08 Peter(1gm/50ml) IVPB Rigo Ge NO5456 mg with M.D.;Dextrose 50 mlspike bag (D5W)Zithromax [...] JulioBolus: : Bolus 500 Rigo Ge (X1) Geraldine;GENERAL ORDERSOrder Description Priority Entered Acknowledged InitialedBlood Pressure 19:07 08/10/2020 19:11 Rigo Colvin RN, M.D.;Radiological Equipment Specialist 19:07 08/10/2020 19:11 Julio(continuous) Rigo Ge RN, M.D.;EKG 19:08/10/2020 19:11 Rigo Flores RN, M.D.; 4 OrderSheet [facility] Emergency Department [address] [place] [address] Phone #: ext- [phone] 08/10/2020 18:53 Patient: [...] rce(s) Supporting Document(s) ID Date Data Source [id number] 08/10/2020 06:53:00 PM EST [facility] 1 Medication Reconciliation Report [facility] Emergency Department [address] [place] [address] Phone #: ext- [phone] 08/10/2020 18:53 Patient: [...] Oral Multivitamins Oral 2 Medication Reconciliation Report [facility] Emergency Department [address] [place] [address] Phone #: ext- [phone] 08/10/2020 18:53 Patient: DIANA OLIVERA Sex: M : 1955 Age: 65y oxyCODONE HCl Oral 5 mg, q6h, prn Pantoprazole Sodium Oral 40 mg, daily ProAir HFA Inhalation Senna Oral (8.6 mg) 1 capsule, 2x a day Serevent Diskus Inhalation Zinc Oral (220 (50 Zn) mg) 1 capsule, dailyThe source(s) of the original Home Medication information:patient's [facility] recordThe following Medications were given to the patient in the Emergency Department:NS [IV] IV Fluids bolus 250 mL over 15 minute(s), then 125 mL/hr, administered: 19:28 08/10/2020examethasone [IVP] IVP 10 mg, administered: 19:30 08/10/2020OFIRMEV Drip IV bolus 0, then 1000 MG, administered: 19:36 08/10/2020Zithromax [IVPB] IVPB bolus 0, then 500 mg 250 mL/hr, administered: 19:39 08/10/2020uoneb [Neb Tx] Neb TX 2 unit dose, administered: 19:44 08/10/2020EFTRIAXONE (1GM/50ML) [IVPB] IVPB bolus 0, then 1 gm 100 mL/hr, administered: 20:08 08/10/2020EMDESIVIR Drip IV bolus 0, then 200 MG, administered: 20:39 08/10/2020Magnesium Sulfate [IVPB] IVPB bolus 0, then 2 gm 50 mL/hr, administered: 20:43 08/10/2020uoneb [Neb Tx] Neb TX 2 unit dose, administered: 21:27 08/10/2020NS [IV] IV Fluids bolus 500 mL over 20 minute(s), then 100 mL/hr, administered: 21:53 08/10/2020The following Medications were prescribed to the patient:None. Name Value Range Interpretation Code Description Data Sanjuana rce(s) Supporting Document(s) ID Date Data Source [id number] 08/10/2020 06:53:00 PM [facility] 1 Medication Administration Record [facility] Emergency Department [address] [place] [address] Phone #: ext- [phone] 08/10/2020 18:53 Patient: [...] Dispensed: 50 mL bagStop Site: #2 left yzlaspx97:49 08/10/2020yulia Patel RNGiven DEXAMETHASONE [IVP] Dexamethasone IVP 10 mg19:30 08/10/2020 Dose: 10 mg IVPPyulia Patel RN Site: #2 left forearmStart REMDESIVIR * Remdesivir 200 mg IV 200 mg20:39 08/10/2020 Dose: 200 MG * Drip IV (ADD to 250 mL NS, Infuse at 250PeTsang RN mL/hr)----Stop21:52 1PKristin Guaman CEFTRIAXONE (1GM/50ML) [IVPB] cefTRIAXone (1gm/50ml) IVPB20:08 08/10/2020 Dose: 1 gm IVPB 1000 mg with Dextrose 50 ml spikeJulio Patel RN Rate: 100 mL/hr over 30 minute(s) bag (D5W)---- Dispensed: 50 mL bagStop Site: #2 left [id number]:40 1PKristin Guaman ZITHROMAX [IVPB] (AZITHROMYCIN) Zithromax IVPB 500 mg X1 Dose:19:39 08/10/2020 Dose: 500 mg IVPB 500 mg with Dextrose IntravenousJulio Patel RN Rate: 250 mL/hr over 1 hour(s) 250 mL (NOW x1)---- Dispensed: 250 mL bagStop Site: #1 right AC20:38 1PKristin Guaman OFIRMEV * Ofirmev IV 1000 mg (NOW x1,19:36 08/10/2020 Dose: 1000 MG * Drip IV Infuse over 15 minutes)Julio Patel RN----Stop20:04 08/10/2020 2 Medication Administration Record [facility] Emergency Department [address] [place] [address] Phone #: ext- [phone] 08/10/2020 18:53 [id number] Sex: [facility] : 1955 Age: 65yPeter UMA Pateltart NS [IV] NS IV : Bolus 250 mL, then 78325:28 08/10/2020 Dose: IV Fluids mL/hrPyulia Patel RN [...] NS IV 500 mL Bolus: : Bolus 63216:53 08/10/2020 Dose: IV Fluids mL (X1)Julio Patel RN Rate: 100 mL/hr over 5 hour(s)---- Bolus: 500 mL over 20 minute(s)Stop Dispensed: 1000 mL bag22:23 08/10/2020 Site: #1 right Cornelius Soto R.N. Name Value Range Interpretation Code Description Data Sanjuana rce(s) Supporting Document(s) ID Date Data Source [id number] 08/10/2020 06:53:00 PM EST [facility] 1 General Instructions [facility] Emergency Department [address] [place] [address] Phone #: ext- [phone] 08/10/2020 18:53 Patient: DIANA OLIVERA Sex: M : 1955 Age: 65yAcute respiratory failure with hypoxemia.Viral and lobar pneumonia with hypoxemia and respiratory failure. (Covid-19).Coronavirus COVID-19 with pneumonia (Severe).Hypoxia.(Electronically signed by Rigo Ge M.D. 08/11/2020 01:32) Name Value Range Interpretation Code Description Data Sanjuana rce(s) Supporting Document(s) ID Date Data Source [id number] 08/10/2020 06:53:00 PM EST [facility] 1 Clinical Report - Nurses [facility] Emergency Department [address] [place] [address] Phone #: ext- [phone] 08/10/2020 18:53 Patient: [...] Nicole R.N. 2 Clinical Report - Nurses [facility] Emergency Department [address] [place] [address] Phone #: ext- [phone] 08/10/2020 18:53 Patient: [...] Sonido Nicole R.N.Medication/allergy information source: the patient's [facility] record. --19:00 08/10/20 Hany Longoria Clinical Report - Nurses [facility] Emergency Department [address] [place] [address] Phone #: ext- [phone] 08/10/2020 18:53 Patient: [...] present anteriorly. 4 Clinical Report - Nurses [facility] Emergency Department [address] [place] [address] Phone #: ext- [phone] 08/10/2020 18: 53 Patient: DIANA OLIVERA Sex: [...] administered by nonrebreather mask at 15 liters. school bus monitor, NIBP monitor and pulse oximeter placed on patient; radiation monitor- Lead II; monitor alarms on; monitor strip [...] Patel RN 5 Clinical Report - Nurses [facility] Emergency Department [address] [place] [address] Phone #: ext- [phone] 08/10/2020 18:53 Patient: DIANA OLIVERA Sex: M [...] by venturi mask at 15 liters 50%. --20:08/10/20 Julio Patel RN20:27 08/10/20. BP: 101/60. MAP: 73. HR: 85. RR: 18. O2 saturation: 95% on Venti mask at 15liters/minute. Pain level now: 0/10. --20:27 08/10/20 Julio Patel RN20:28 08/10/20. Temp: 99.5 F (oral). --20:08/10/20 Julio Patel RN20:38 08/10/2020 Zithromax IVPB via IV site #1 Discontinued: infused. Total amount infused: 250 mL. IVpatency established. IV site checked: no pain, redness, or swelling. IV flushed thoroughly. --20:38 08/10/20Julio Patel RN 6 Clinical Report - Nurses [facility] Emergency Department [address] [place] [address] Phone #: ext- [phone] 08/10/2020 18:53 Patient: DIANA OLIVERA Sex: M [...] Patel RN 7 Clinical Report - Nurses [facility] Emergency Department [address] [place] [address] Phone #: ext- [phone] 08/10/2020 18:53 Patient: [...] or swelling. IV flushed thoroughly. --01:22 08/11/20 Cornelius Head R.N.DISPOSITION / DISCHARGE 22:32 08/10/20. BP: 102/57. MAP: 72. HR: 71. RR: 18. O2 saturation: 95%. Temp: 99.5 F. Pain level now: 0/10. --22:33 08/10/20 Julio Patel RN Transferred to [facility]. Visit overview and summary of care (CCDA) provided to EMS via paper. Transported via helicopter by marble machine tender with monitor, IV and O2. Report was [...] level now: 0/10. --00:24 08/11/20 Cornelius Head RElizabethNElizabeth 00:24 08/11/2020 Site #[address] upon transfer; patent, no pain and no signs of infection or infiltration. Good blood return present. Flushed with 10 mL saline; flushes easily. --01:24 08/11/20 Cornelius Head R.N. 00:25 08/11/2020 Site #[address] upon transfer; patent, no pain and no signs of infection or infiltration. Good blood return present. Flushed with 10 mL saline; flushes easily. --01:08/11/20 Cornelius Head, Sravan Clinical Report - Nurses [facility] Emergency Department [address] [place] [address] Phone #: ext- [phone] 08/10/2020 18:53 Patient: DIANA OLIVERA Sex: M : 1955 Age: 65y R.N. late entry - 00:08/11/20. Transported via stretcher by marble machine tender and transport team with monitor and O2. --:08/11/20 Cornelius Head R.N. Departure time: late entry - 00:08/11/2020. --01:08/11/20 Cornelius Head R.N.Locked/Released at 08/11/2020: by Cornelius Head R.N. Name Value Range Interpretation Code Description Data Sanjuana rce(s) Supporting Document(s) ID Date Data Source [id number] 08/10/2020 06:53:00 PM EST [facility] 1 Clinical Report - Physicians/Mid Levels [facility] Emergency Department [address] [place] [address] Phone #: ext- [phone] 08/10/2020 18:53 Patient: DIANA OILVERA Sex: M : 1955 Age: 65y Time Seen: 19:06 08/10/2020; initial patient contact. Arrived- By ambulance. Historian- EMS personnel and [facility] nurse and records. 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 [...] Fibrillation. 2 Clinical Report - Physicians/Mid Levels [facility] Emergency Department [address] [place] [address] Phone #: ext- [phone] 08/10/2020 18:53 Patient: [...] 3 Clinical Report - Physician s/Mid Levels [facility] Emergency Department [address] [place] [address] Phone #: ext- [phone] 08/10/2020 18:53 Patient: [...] use or drug use. Resides in a [facility].ADDITIONAL NOTES The nursing notes have been reviewed [...] (Reference) 4 Clinical Report - Physicians/Mid Levels [facility] Emergency Department [address] [place] [address] Phone #: ext- [phone] 08/10/2020 18:53 Patient: DIANA OLIVERA Sex: M : 1955 Age: 65y COVID-19 DETECTED COVID-19 REENTER DETECTED { PROCEDURAL CONTROL VALID KIT LOT # _[id number] 08/10/20.8.AB . . . KIT EXP DATE _35-51-47 71/25/21.2227.AB . . . NORMAL RANGE IS NOT DETECTEDNEGATIVE RESULTSSHOULD BE TREATED PRESUMPTIVE AND, IF INCONSISTENT WITHCLINICAL SIGNS AND SYMPTOMS OR NECESSARY FOR PATIENTMANAGEMENT, SHOULD BETESTED WITH DIFFERENT AUTHORIZED OR CLEARED MOLECULAR TESTS. NEGATIVE RESULTSDO NOT [id number] INFECTION AND SHOULD NOT BE USED THE SOLE BASISFOR PATIENT MANAGEMENT D ECISIONS.Magnesium: (ILEANA: 08/10/2020 19:00) ( [facility] 08/10/2020 19:50) Final results Test Result Flag Units (Reference) MAGNESIUM 1.5 L MG/DL (1.7 - 2.2)D-Dimer: (ILEANA: 08/10/2020 19:00) ( [facility] 08/10/2020 19:27) Final results Test Result Flag Units (Reference) D-DIMER QUANT 3.38 H ug/mL (0.27 - 0.50)CRP: (ILEANA: 08/10/2020 19:00) ( [facility] 08/10/[place] 22:08) Final results Test Result Flag Units (Reference) CRP-HS > 300.00 H MG/L (1.00 - 3.00) CDC/AHS HS-CRP CUT-OFF: RELATIVE RISK: <1.0 mg/LLow 1.0 - 3.0 mg/L Average >3.0 mg/LHigh Optimally, the average of HS-CRP results repeated two weeks apart should be used forrisk assessment.Ferritin: (ILEANA: 08/10/2020 19:00) ( [facility] 08/10/2020 20:25) Final results Test Result Flag Units (Reference) FERRITIN 1000.0 H ng/mL (5.0 - 244)LDH: (ILEANA: 08/10/2020 19:00) ( NdgRcvd 08/10/2020 19:50) Final results Test Result Flag Units (Reference) LDH 371 H U/L (135 - 225)Venous Blood Gas: (ILEANA: 08/10/2020 19:00) ( NdgRcvd 08/10/2020 19:23) Final results Test Result Flag [...] 85.0)CBC w Diff: (ILEANA: 08/10/2020 19:00) ( [facility] 08/10/2020 19:18) Final results Test Result Flag Units (Reference) CBC W/AUTOMATED DIFF COMPLETE BLOOD COUNT WBC 7.5 10/uL (4.2 - 11.0) RBC 4.42 L 10/uL (4.50 - 6.30) HEMOGLOBIN 10.9 L g/dL (14.0 - 16.0) HEMATOCRIT 36.1 L % (41.0 - 51.0) MCV 81.7 fL (80.0 - 94.0) 5 Clinical Report - Physicians/Mid Levels [facility] Emergency Department [address] [place] [address] Phone #: ext- [phone] 08/10/2020 18:53 Patient: DIANA OLIVERA [facility]#: [id number] Sex: M : 1955 Age: 65y MCH [...] Male GFR Interprentation 20-49 yrs >60 mL/min Xkikqt94-71 yrs >56 mL/min Normal 60-69 yrs >49 mL/min Normal 70-79yrs>42 mL/min Normal 80 and above >35 mL/min Normal Female GFRInterpretation 20-39 yrs >60 mL/min Normal 40-49 yrs >58 mL/minNormal 50- 59 yrs >51 mL/min Normal 60-69 yrs >45 mL/min Zyzbwl79-60 yrs >39 mL/min Normal 80 and above >32 mL/min NormalLipase: (ILEANA: 08/10/2020 19:00) ( MsgRcvd 08/10/2020 19:50) Final results Test Result Flag Units (Reference) LIPASE 8 L U/L (13 - 60) 6 Clinical Report - Physicians/Mid Levels [facility] Emergency Department [address] [place] [address] Phone #: ext- [phone] 08/10/2020 18:53 Patient: DIANA OLIVERA Sex: M : 1955 Age: 65y PT/PTT: (ILEANA: 08/10/2020 19:00) ( [facility] 08/10/2020 19:27) Final results Test Result Flag Units (Reference) PROTIME 16.8 H SECONDS (11.0 - 15.5) INR 1.30 H (0.93 - 1.23) PTT 51.0 H SECONDS (24.8 - 36.7) \\BLDo\\INR INTERPRETATION\\BLDx\\ Therapeutic range for Coumadin and related oral anticoagulants. -International Normalized Ratio (INR): 2.0 - 3.0 for Venous Thrombosis, Pulmonary Embolus, Tissue heart valves, Acute NM Atrial Fibrillation, Valvular heart disease and recurrent Systemic Embolism. -International Normalized Ratio (INR): 2.5 - 3.5 for Mechanical Prosthetic valve. Troponin-T: (ILEANA: 08/10/2020 19:00) ( [facility] 08/10/2020 19:50) Final results Test Result Flag Units (Reference) TROPONIN T <0.01 NG/ML (0.00 - 0.10) TROPONIN T0.1 ng/ml Recommended as the clinical threshold value forTroponin T. BNP: (ILEANA: 08/10/2020 19:00) ( [facility] 08/10/2020 20:25) Final results Test Result Flag Units (Reference) BNP 521 H PG/ML (0 - 125) Lactic Acid: (ILEANA: 08/10/2020 19:00) ( [facility] 08/10/2020 19:22) Final results Test Result Flag Units (Reference) LACTIC ACID 2.1 MMOL/L (0.2 - 2.2) Chest Portable 1 View: (ILEANA: 08/10/2020 19:07) ( [facility] 08/10/2020 19:33) In Progress CHEST PORTABLE Reason(s): [...] picture than 08-07-19 21:30 08/10/20. Doc Garcia, [employer]ATIONS [employer] hospitalist in ER to see pt in [...] sick for this facility, no ICU, no leasing machine tender; no RT, will attempt to transfer 7 Clinical Report - Physicians/Mid Levels [facility] Emergency Department [address] [place] [address] Phone #: ext- [phone] 08/10/2020 18:53 [id number] Sex: M : 1955 Age: 65y 22:02 08/10/20. Doc Garcia called Dr. Walker, hospitalist at [facility], who accepted pt for transfer; he wants [...] explained to patient and spouse. Transferred to [facility]. Summary of care (CCDA) provided to transport team, patient and transfer facility via paper. Condition: serious.CLINICAL IMPRESSION Acute respiratory failure with hypoxemia. Viral and lobar pneumonia with hypoxemia and respiratory failure. (Covid-19). Coronavirus COVID-19 with pneumonia (Severe). Hypoxia.(Electronically signed by Rigo Ge M.D. 08/11/2020 01:32) Name Value Range Interpretation Code Description Data Sanjuana rce(s) Supporting Document(s) ID Date Data Source [id number] 08/10/2020 06:53:00 PM [facility] VisitID: [id number] Date: 20:52MED REC FAXED ALONG WITH ME MAR @2054(Electronically signed by Hanny Moise - 08/10/2020 20:52) Name Value Range Interpretation Code Description Data Sanjuana rce(s) Supporting Document(s) ID Date Data Source [id number] 08/10/2020 10:28:00 PM [facility] DETECTEDDETECTED{ PROCEDURAL C ONTROL VALID KIT LOT # _[id number] 08/10/20.AB . . . KIT EXP DATE _86-71-71 08/10/20.AB . . . NORMAL RANGE IS [...] rce(s) Supporting Document(s) ID Date Data Source [id number] 08/17/2020 02:20:00 PM [facility] Name Value Range Interpretation Code Description Data Sanjuana rce(s) Supporting Document(s) CULTURE [facility] _CULTURE BLOOD_ TEST PERFORM ED AT [address] [address] CLIA# [id number] SEE SCANNED REPORT{ PRELIM ID Date Data Source [id number] 08/16/2020 08:51:00 AM EST [facility] [id number] Name Value Range Interpretation Code Description Data Sanjuana rce(s) Supporting Document(s) Bacteria identified in Blood by Culture [facility] NO GROWTH AFTER 5 DAYS ID Date Data Source [id number] 08/17/2020 02:20:00 PM [facility] Name Value Range Interpretation Code Description Data Sanjuana rce(s) Supporting Document(s) CULTURE BLOOD [facility] _CULTURE BLOOD_ TEST PERFORM ED AT [address] [address] CLIA# [id number] SEE SCANNED REPORT{ PRELIM ID Date Data Source [id number] 08/10/2020 10:08:00 PM [facility] Name Value Range Interpretation Code Description Data Sanjuana rce(s) Supporting Document(s) C reactive protein [Mass/volume] in Serum or Plasma by High sensitivity method >300.00 MG/L 1.00 - 3.00 H [facility] CDC/S HS-CRP CUT-OFF: RELATIVE RISK: <1.0 mg/L Low 1.0 - 3.0 mg/L Average >3.0 mg/L High Optimally, the average of HS-CRP results repeated two weeks apart should be used for risk assessment. ID Date Data Source [id number] 08/10/2020 08:25:00 PM [facility] Name Value Range Interpretation Code Description Data Sanjuana rce(s) Supporting Document(s) Ferritin [Mass/volume] in Serum or Plasma 1000.0 ng/mL 5.0 - 244 H [facility] ID Date Data Source [id number] 08/10/2020 08:25:00 PM [facility] Name Value Range Interpretation Code Description Data Sanjuana rce(s) Supporting Document(s) BNP 521 PG/ML 0 - 125 [facility] ID Date Data Source [id number] 08/10/2020 07:50:00 PM [facility] Name Value Range Interpretation Code Description Data Sanjuana rce(s) Supporting Document(s) Magnesium [Mass/volume] in Serum or Plasma 1.5 MG/DL 1.7 - 2.2 L [facility] ID Date Data Source [id number] 08/10/2020 07:50:00 PM [facility] Value Range Interpretation Code Description Data Sanjuana rce(s) Supporting Document(s) Lactate dehydrogenase [Enzymatic activity/volume] in Serum o r Plasma 371 U/L 135 - 225 H [facility] ID Date Data Source [id number] 08/10/2020 07:50:00 PM [facility] Name Value Range Interpretation Code Description Data Sanjuana rce(s) Supporting Document(s) Lipase [Enzymatic activity/volume] in Serum or Plasma 8 U/L 13 - 60 L [facility] ID Date Data Source [id number] 08/10/2020 07:50:00 PM [facility] Value Range Interpretation Code Description Data Sanjuana rce(s) Supporting Document(s) COMPREHENSIVE METABOLIC PANEL [facility] COMPREHENSIVE METABOLIC PANEL Sodium [Moles/volume] in Serum or Plasma 139 mEq/L 134 - 153 [facility] Potassium [Moles/volume] in Serum or Plasma 5.1 mEq/L 3.6 - 5.0 H [facility] Chloride [Moles/volume] in Serum or Plasma 96 mEq/L 98 - 107 L [facility] Carbon dioxide, total [Moles/volume] in Serum or Plasma 35 MEQ/L 22 - 30 H [facility] Glucose [Mass/volume] in Serum or Plasma 206 MG/DL 70 - 99 H [facility] BUN 30 MG/DL 7 - [address] [facility] Creatinine [Mass/volume] in Serum or Plasma 1.0 MG/DL 0.7 - 1.5 [facility] BUN/CREAT 30 8 - 27 H [facility] al Protein [Mass/volume] in Serum or Plasma 6.0 G/DL 6.3 - 8.2 L [facility] Albumin [Mass/volume] in Serum or Plasma 3.1 G/DL 3.9 - 5.0 L [facility] Globulin [Mass/volume] in Serum by calculation 2.9 GM/DL 2.4 - 3.2 [facility] A/G RATIO 1.1 0.8 - 2.0 [facility] Calcium [Mass/volume] in Serum or Plasma 8.6 MG/DL 8.4 - 10.2 [facility] Bilirubin.total [Mass/volume] in Serum or Plasma <0.7 MG/DL 0.2 - 1.3 [facility] Alkaline phosphatase [Enzymatic activity/volume] in Serum or Plasma 70 U/L 38 - 126 [facility] Aspartate aminotransferase [Enzymatic activity/volume] in Serum or Plasma 31 U/L 5 - 40 [facility] Alanine aminotransferase [Enzymatic activity/volume] in Seru m or Plasma 43 U/L 7 - 56 [facility] Anion gap 3 in Serum or Plasma 8.0 mmol/L 8.0 - 16.0 [facility] AGE 65 yrs [facility] NON-AA GFR >60 mL/min [facility] ital AFR AMER GFR >60 mL/min [facility] Male GFR In terprentation 20-49 [...] >32 mL/min Normal ID Date Data Source [id number] 08/10/2020 07:50:00 PM EST [facility] Name Value Range Interpretation Code Description Data Sanjuana rce(s) Supporting Document(s) TROPONIN T <0.01 NG/ML 0.00 - 0.10 [facility]spital TROPONIN T0.1 ng/ml Recommended as the c linical threshold value forTroponin T. ID Date Data Source [id number] 08/10/2020 07:27:00 PM [facility] Name Value Range Interpretation Code Description Data [facility](s) Supporting Document(s) Fibrin D-dimer FEU [Mass/volume] in Platelet poor plasma 3.38 ug /mL 0.27 - 0.50 H [facility] ID Date Data Source [id number] 08/10/2020 07:26:00 PM [facility] Name Value Range Interpretation Code Description Data [facility](s) Supporting Document(s) Prothrombin time (PT) 16.8 SECONDS 11.0 - 15.5 H [facility] INR in Platelet poor plasma by Coagulation assay 1.30 0.93 - 1. 23 H [facility] aPTT in Blood by Coagulation assay 51.0 SECONDS 24.8 - 36.7 H [facility] \\BLDo\\INR INTERPRETATION\\BLDx\\ Therapeutic range for Coumadin and related oral anticoagulants. - International Normalized Ratio (INR): 2.0 - 3.0 for Venous Thrombosis, Pulmonary Embolus, Tissue heart valves, Acute NM Atrial Fibrillation, Valvular heart disease and recurrent Systemic Embolism. - International Normalized Ratio (INR): 2.5 - 3.5 for Mechanical Prosthetic valve. ID Date Data Source [id number] 08/10/2020 07:22:00 PM [facility] Name Value Range Interpretation Code Description Data [facility](s) Supporting Document(s) pH of Serum or Plasma 7.34 7.32 - 7.43 [facility] pCO2 V 72.4 mm/HG 38.0 - 51.0 H [facility] pital pO2 V 24.5 mm/HG 30.0 - 55.0 L [facility] pital Bicarbonate [Moles/volume] in Venous blood 38.2 meq/L 22.0 - 29.0 H [facility] TCO2 V 40.4 meq/L 22.0 - 29.0 [facility] Base excess in Blood by calculation 10.0 -2.0 - 2.0 H [facility] O2 SAT V 41.0 % 40.0 - 85.0 [facility] ital ID Date Data Source [id number] 08/10/2020 07:22:00 PM [facility] Name Value Range Interpretation Code Description Data Sanjuana rce(s) Supporting Document(s) Lactate [Moles/volume] in Serum or Plasma 2.1 MMOL/L 0.2 - 2.2 [facility] ID Date Data Source [id number] 08/10/2020 07:17:00 PM EST [facility] Name Value Range Interpretation Code Description Data Sanjuana rce(s) Supporting Document(s) CBC W/AUTOMATED DIFF [facility] COMPLETE BLOOD COUNT Leukocytes [#/volume] in Blood by Automated count 7.5 10^3/uL 4.2 - 1 1.0 [facility] Erythrocytes [#/volume] in Blood by Automated count 4.42 10^6/uL 4. 50 - 6.30 L [facility] Hemoglobin [Mass/volume] in Blood 10.9 g/dL 14.0 - 16.0 L [facility] Hematocrit [Volume Fraction] of Blood by Automated count 36.1 % 4 1.0 - 51.0 L [facility] Erythrocyte mean corpuscular volume [Entitic volume] by Auto mated count 81.7 fL 80.0 - 94.0 [facility] Erythrocyte mean corpuscular hemoglobin [Entitic mass] by Automated count 24.7 pg 27.0 - 34.0 L [facility] Erythrocyte mean corpuscular hemoglobin concentration [Mass/volume] by Automated count 30.2 g/dL 31.0 - 36.0 L [facility] Erythrocyte distribution width [Ratio] by Automated count 17.4 % 11.5 - 14.8 H [facility] Platelets [#/volume] in Blood by Automated count 275 10^3/uL 150 - 45 0 [facility] Platelet mean volume [Entitic volume] in Blood by Automated count 9.0 fL 7.4 - 10.4 [facility] Neutrophils/100 leukocytes in Blood by Automated count 78.5 % 37. 0 - 80.0 [facility] Lymphocytes/100 leukocytes in Blood by Manual count 6.8 % 25.0 - 40.0 L [facility] Monocytes/100 leukocytes in Blood by Automated count 12.3 % 3.0 - 8.0 H [facility] Eosinophils/100 leukocytes in Blood by Automated count 0.1 % 0.0 - 7.0 [facility] Basophils/100 leukocytes in Blood by Automated count 0.4 % 0.0 - 2.0 [facility] %IG 1.9 % 0.0 - 0.0 [facility] %NRBC 0.0 % 0.0 - 0.0 [facility] al Neutrophils [#/volume] in Blood by Automated count 5.88 10^3/uL 2.00 - 6.90 [facility] Lymphocytes [#/volume] in Blood by Automated count 0.51 10^3/uL 0.60 - 3.40 L [facility] Monocytes [#/volume] in Blood by Automated count 0.92 10^3/uL 0.00 - 0.90 H [facility] Eosinophils [#/volume] in Blood by Automated count 0.01 10^3/uL 0.00 - 0.70 [facility] Basophils [#/volume] in Blood by Automated count 0.03 10^3/uL 0.00 - 0.20 [facility] #IG 0.14 10^3/uL 0.00 - 0.10 [facility] #NRBC 0.00 10^3/uL 0.00 - 0.00 [facility] MANUAL DIFF NOT INDICATED [facility] RBC MORPH NOT INDICATED [facility] ID Date Data Source [id number] 08/06/2020 12:00:00 AM EST [facility] Name Value Range Interpretation Code Description Data Sanjuana rce(s) Supporting Document(s) SARS-CoV2 Rapid Antigen Positive [facility] This lab was ordered by [facility] and reported by [facility]. ID Date Data Source [id number] 08/03/2020 12:00:00 PM EST [facility] Name Value Range Interpretation Code Description Data Sanjuana rce(s) Supporting Document(s) SARS coronavirus 2 RNA Detected [facility] This lab [facility] ordered [facility] and reported by [facility]. ID Date Data Source [id number] 08/07/2020 04:11:00 PM EST [facility] Name Value Range Interpretation Code Description Data Sanjuana rce(s) Supporting Document(s) SARS-CoV-2, DOMINICK Detected Not Detected A [facility] This nucleic acid amplification test was developed and its performancecharacteristics determined by [facility]. Nucleic acidamplification tests include RT-PCR and [...] in this assay. ID Date Data Source [id number] 07/30/2020 09:42:00 AM EST [facility] Name Value Range Interpretation Code Description Data Sanjuana rce(s) Supporting Document(s) COMPREHENSIVE METABOLIC PANEL [facility] COMPREHENSIVE METABOLIC PANEL Sodium [Moles/volume] in Serum or Plasma 137 mEq/L 134 - 153 [facility] Potassium [Moles/volume] in Serum or Plasma 4.5 mEq/L 3.6 - 5.0 [facility] Chloride [Moles/volume] in Serum or Plasma 98 mEq/L 98 - 107 [facility] Carbon dioxide, total [Moles/volume] in Serum or Plasma 33 MEQ/L 22 - 30 H [facility] Glucose [Mass/volume] in Serum or Plasma 151 MG/DL 65 - 110 H [facility] BUN 22 MG/DL 7 - 21 H [facility] al Creatinine [Mass/volume] in Serum or Plasma 0.6 MG/DL 0.7 - 1.5 L [facility] BUN/CREAT 37 8 - 27 H [facility] Protein [Mass/volume] in Serum or Plasma 5.8 G/DL 6.3 - 8.2 L [facility] Albumin [Mass/volume] in Serum or Plasma 3.3 G/DL 3.9 - 5.0 L [facility] Globulin [Mass/volume] in Serum by calculation 2.5 GM/DL 2.4 - 3.2 [facility] A/G RATIO 1.3 0.8 - 2.0 [facility] Calcium [Mass/volume] in Serum or Plasma 8.5 MG/DL 8.4 - 10.2 [facility] Bilirubin.total [Mass/volume] in Serum or Plasma <0.7 MG/DL 0.2 - 1.3 [facility] Alkaline phosphatase [Enzymatic activity/volume] in Serum or Plasma 72 U/L 38 - 126 [facility] Aspartate aminotransferase [Enzymatic activity/volume] in Serum or Plasma 18 U/L 5 - 40 [facility] Alanine aminotransferase [Enzymatic activity/volume] in Seru m or Plasma 24 U/L 7 - 56 [facility] Anion gap 3 in Serum or Plasma 6.0 mmol/L 8.0 - 16.0 L [facility] AGE 65 yrs [facility] al NON-AA GFR >60 mL/min [facility] ital AFR AMER GFR >60 mL/min [facility] Male GFR In terprentation 20-49 [...] >32 mL/min Normal ID Date Data Source [id number] 07/30/2020 08:52:00 AM EST [facility] Name Value Range Interpretation Code Description Data Sanjuana rce(s) Supporting Document(s) Erythrocyte sedimentation rate by Westergren method 21 mm/hr 0 - 20 H [facility] SED RATE REENTER 21 [facility] ID Date Data Source [id number] 07/30/2020 08:37:00 AM EST [facility] Name Value Range Interpretation Code Description Data Sanjuana rce(s) Supporting Document(s) CBC NO DIFF [facility] ital COMPLETE BLOOD COUNT Leukocytes [#/volume] in Blood by Automated count 8.1 10^3/uL 4.2 - 1 1.0 [facility] Erythrocytes [#/volume] in Blood by Automated count 5.01 10^6/uL 4. 50 - 6.30 [facility] Hemoglobin [Mass/volume] in Blood 12.6 g/dL 14.0 - 16.0 L [facility] Hematocrit [Volume Fraction] of Blood by Automated count 41.0 % 4 1.0 - 51.0 [facility] Erythrocyte mean corpuscular volume [Entitic volume] by Auto mated count 81.8 fL 80.0 - 94.0 [facility] Erythrocyte mean corpuscular hemoglobin [Entitic mass] by Automated count 25.1 pg 27.0 - 34.0 L [facility] Erythrocyte mean corpuscular hemoglobin concentration [Mass/volume] by Automated count 30.7 g/dL 31.0 - 36.0 L [facility] Erythrocyte distribution width [Ratio] by Automated count 17.9 % 11.5 - 14.8 H [facility] Platelets [#/volume] in Blood by Automated count 118 10^3/uL 150 - 45 0 L [facility] Platelet mean volume [Entitic volume] in Blood by Automated count 10.8 fL 7.4 - 10.4 H [facility] ID Date Data Source [id number] 07/27/2020 11:45:[address] [facility] Name Value Range Interpretation Code Description Data Sanjuana rce(s) Supporting Document(s) SARS coronavirus 2 RNA Not Detected [facility] This lab was ordered by [facility] and reported by [facility]. ID Date Data Source [id number] 07/30/2020 06:25:00 AM EST [facility] Name Value Range Interpretation Code Description Data Sanjuana e(s) Supporting Document(s) SARS-CoV-2, DOMINICK Not Detected Not Detected [facility] This nucleic acid amplification test was developed and its performancecharacteristics determined by [facility]. Nucleic acidamplification tests include PCR and [...] assay. ORDER COVID 19 2 DAY YES [facility] ID Date Data Source [id number] 07/23/2020 09:00:[address] [facility] Name Value Range Interpretation Code Description Data Sanjuana [facility](s) Supporting Document(s) SARS coronavirus 2 RNA Not Detected [facility] This lab was ordered by [facility] and reported by [facility]. ID Date Data Source [id number] 07/26/2020 06:35:00 AM EST [facility] Name Value Range Interpretation Code Description Data Sanjuana rce(s) Supporting Document(s) SARS-CoV-2, DOMINICK Not Detected Not Detected [facility] This nucleic acid amplification test was developed and its performancecharacteristics determined by [facility]. Nucleic acidamplification tests include PCR and [...] assay. ORDER COVID 19 2 DAY YES [facility] ID Date Data Source [id number] 07/20/2020 01:50:[address] [facility] Name Value Range Interpretation Code Description Data Sanjuana rce(s) Supporting Document(s) SARS coronavirus 2 RNA Not Detected [facility] This lab was ordered by [facility] and reported by [facility]. ID Date Data Source [id number] 07/23/2020 08:55:00 AM EST [facility] Name Value Range Interpretation Code Description Data Sanjuana rce(s) Supporting Document(s) SARS-CoV-2, DOMINICK Not Detected Not Detected [facility] This nucleic acid amplification test was developed and its performancecharacteristics determined by [facility]. Nucleic acidamplification tests include PCR and TMA. [...] assay. ORDER COVID 19 2 DAY YES [facility] ID Date Data Source [id number] 07/16/2020 10:00:00 AM EST [facility] Name Value Range Interpretation Code Description Data Sanjuana rce(s) Supporting Document(s) SARS coronavirus [address] [facility] This lab was ordered by [facility] and reported by [facility]. ID Date Data Source [id number] 07/17/2020 03:13:00 PM EST [facility] Name Value Range Interpretation Code Description Data Sanjuana rce(s) Supporting Document(s) SARS-CoV-2, DOMINICK Not Detected Not Detected [facility] This nucleic acid amplification test was developed and its performancecharacteristics determined by [facility]. Nucleic acidamplification tests include PCR and TMA. [...] in this assay. ID Date Data Source [id number] 07/16/2020 09:45:00 AM [facility] Name Value Range Interpretation Code Description Data Sanjuana rce(s) Supporting Document(s) Ferritin [Mass/volume] in Serum or Plasma 285.6 ng/mL 5.0 - 244 H [facility] ID Date Data Source [id number] 07/16/2020 09:45:00 AM [facility] Name Value Range Interpretation Code Description Data Sanjuana rce(s) Supporting Document(s) Thyroxine (T4) free index in Serum or Plasma by calculation 1.77 NG/DL 0.93 - 1.70 H [facility] ID Date Data Source [id number] 07/16/2020 09:45:00 AM [facility] Name Value Range Interpretation Code Description Data Sanjuana rce(s) Supporting Document(s) Thyrotropin [Units/volume] in Serum or Plasma by Detec tion limit <= 0.05 mIU/L 0.41 uIU/mL 0.47 - 5.01 L [facility] ID Date Data Source [id number] 07/16/2020 09:45:00 AM [facility] Value Range Interpretation Code Description Data Sanjuana rce(s) Supporting Document(s) BASIC METABOLIC PANEL [facility] BASIC METABOLIC PANEL Sodium [Moles/volume] in Serum or Plasma 136 mEq/L 134 - 153 [facility] Potassium [Moles/volume] in Serum or Plasma 5.1 mEq/L 3.6 - 5.0 H [facility] Chloride [Moles/volume] in Serum or Plasma 96 mEq/L 98 - 107 L [facility] Carbon dioxide, total [Moles/volume] in Serum or Plasma 34 MEQ/L 22 - 30 H [facility] Glucose [Mass/volume] in Serum or Plasma 233 MG/DL 65 - 110 H [facility] BUN 23 MG/DL 7 - 21 [facility] Creatinine [Mass/volume] in Serum or Plasma 0.6 MG/DL 0.7 - 1.5 L [facility] BUN/CREAT 38 8 - [address] [facility] Calcium [Mass/volume] in Serum or Plasma 8.7 MG/DL 8.4 - 10.2 [facility] Anion gap 3 in Serum or Plasma 6.0 mmol/L 8.0 - 16.0 L [facility] AGE 65 yrs [facility] al AFR AMER GFR >60 mL/min [facility] NON-AA GFR >60 mL/min [facility] ital Male GFR Inter prentation 20-49 yrs [...] >32 mL/min Normal ID Date Data Source [id number] 07/16/2020 09:44:00 AM [facility] Name Value Range Interpretation Code Description Data Sanjuana rce(s) Supporting Document(s) Hemoglobin A1c/Hemoglobin.total in Blood 8.9 % 4.4 - 6.1 H [facility] {A1]{HB] ID Date Data Source [id number] 07/16/2020 09:29:00 AM [facility] Name Value Range Interpretation Code Description Data Sanjuana rce(s) Supporting Document(s) CVE PANEL [facility] al LIPID PANEL Cholesterol [Mass/volume] in Serum or Plasma 147 MG/DL 131 - 200 [facility] Deprecated Triglyceride [Mass/volume] in Serum or Plasma 130 MG/DL 3 5 - 160 [facility] HDL 40 MG/DL 29 - 86 [facility] al Cholesterol in LDL [Mass/volume] in Serum or Plasma by Direc t assay 92 mg/dL 65 - 175 [facility] Cholesterol.total/Cholesterol in HDL [Mass Ratio] in Serum o r Plasma 3.7 3.4 - 4.9 [facility] LDL/HDL 2.30 1.00 - 3.55 [facility] ital CVE RISK CHOL/HDL LDL/HDLMEN: 1/2 AVERAGE 3.43 1.00 AVERAGE 4.97 3.55 2X AVERAGE 9.55 6.25 3X AVERAGE 23.99 7.99WOMEN: 1/2 AVERAGE 3.27 1.47 AVERAGE 4.44 3.22 2X AVERAGE 7.05 5.03 3X AVERAGE 11.04 6.14 ID Date Data Source [id number] 07/16/2020 09:29:00 AM [facility] Name Value Range Interpretation Code Description Data Sanjuana rce(s) Supporting Document(s) Iron [Mass/volume] in Serum or Plasma 47 UG/DL 42 - 135 [facility] Iron binding capacity.unsaturated [Mass/volume] in Serum or Plasma 223 UG/DL 112 - 347 [facility] Iron binding capacity [Mass/volume] in Serum or Plasma 270 ug/dL 250 - 450 [facility] Iron saturation [Mass Fraction] in Serum or Plasma 17 % [facility] ID Date Data Source [id number] 07/16/2020 09:29:00 AM [facility] Name Value Range Interpretation Code Description Data Sanjuana rce(s) Supporting Document(s) Magnesium [Mass/volume] in Serum or Plasma 1.7 MG/DL 1.7 - 2.2 [facility] ID Date Data Source [id number] 07/16/2020 07:54:00 AM [facility] Name Value Range Interpretation Code Description Data Sanjuana rce(s) Supporting Document(s) CBC NO DIFF [facility] COMPLETE BLOOD COUNT Leukocytes [#/volume] in Blood by Automated count 12.7 10^3/uL 4.2 - 11.0 H [facility] Erythrocytes [#/volume] in Blood by Automated count 4.89 10^6/uL 4. 50 - 6.30 [facility] Hemoglobin [Mass/volume] in Blood 11.8 g/dL 14.0 - 16.0 L [facility] Hematocrit [Volume Fraction] of Blood by Automated count 39.5 % 4 1.0 - 51.0 L [facility] Erythrocyte mean corpuscular volume [Entitic volume] by Auto mated count 80.8 fL 80.0 - 94.0 [facility] Erythrocyte mean corpuscular hemoglobin [Entitic mass] by Automated count 24.1 pg 27.0 - 34.0 L [facility] Erythrocyte mean corpuscular hemoglobin concentration [Mass/volume] by Automated count 29.9 g/dL 31.0 - 36.0 [facility] [facility] Erythrocyte distribution width [Ratio] by Automated count 16.8 % 11.5 - 14.8 H [facility] Platelets [#/volume] in Blood by Automated count 437 10^3/uL 150 - 45 0 [facility] Platelet mean volume [Entitic volume] in Blood by Automated count 10.1 fL 7.4 - 10.4 [facility] ID Date Data Source [id number] 07/14/2020 03:46:00 PM EST [facility] Name Value Range Interpretation Code Description Data Sanjuana rce(s) Supporting Document(s) Vancomycin [Mass/volume] in Serum or Plasma --trough 8.8 ug/mL 10.0 - 15.0 L [facility] TROUG H First trough is drawn 30 minutes prior to fourth dose. If patient is not hemodynamically stable, a trough is obtained as deemed medically necessary. If patient is hemodynamically stable, a trough should be drawn once a week. The trough is drawn 30 minutes prior to the next dose. Mild Infections Trough 10-15 mg/L Severe Infections Trough 15-20 mg/L MOVERS Infections Trough 20-25 mg/L *Severe Infections - Endocarditis, Osteomyelitis, Hospital Acquired Pneumonia, Sepsis ID Date Data Source [id number] 07/14/2020 11:45:[address] [facility] Name Value Range Interpretation Code Description Data Sanjuana rce(s) Supporting Document(s) COVID-19 [place] This lab was ordered by [facility] and reported by [facility]. ID Date Data Source [id number] 07/14/2020 11:45:00 AM [facility] Name Value Range Interpretation Code Description Data Sanjuana rce(s) Supporting Document(s) COVID-19 [facility] This lab was ordered by [facility] and reported by [facility]. ID Date Data Source [id number] 07/14/2020 12:33:00 PM EST [facility] Name Value Range Interpretation Code Description Data Sanjuana rce(s) Supporting Document(s) COVID-19 NOT DETECTED [facility] COVID-19 [facility] NOT DETECTED [facility] { PROCEDURAL CONTROL VALID KIT LOT # _[id number] 07/14/20.1233. . KIT EXP DATE _10/22/20 07/14/20.Steven. . NORMAL RANGE IS NOT DETECTEDNEGATIVE RESULTS SHOULD BE TREATED PREUMPTIVE AND, IF INCONSISTENT WITHCLINICAL SIGNS AND SYMPTOMS OR NECESSARY FOR PATIENT MANAGEMENT, SHOULD BETESTED WITH DIFFERENT AUTHORIZED OR CLEARED MOLECULAR TESTS. NEGATIVE RESULTSDO NOT PRECLUDE SARS-CoV-2 INFECTION AND SHOULD NOT BE USED THE SOLE BASISFOR PATIENT MANAGEMENT DECISIONS. ID Date Data Source [id number] 07/14/2020 07:24:00 AM EST [facility] Name Value Range Interpretation Code Description Data Sanjuana rce(s) Supporting Document(s) COMPREHENSIVE METABOLIC PANEL [facility] COMPREHENSIVE METABOLIC PANEL Sodium [Moles/volume] in Serum or Plasma 133 mEq/L 134 - 153 L [facility] Potassium [Moles/volume] in Serum or Plasma 5.0 mEq/L 3.6 - 5.0 [facility] Chloride [Moles/volume] in Serum or Plasma 95 mEq/L 98 - 107 L [facility] Carbon dioxide, total [Moles/volume] in Serum or Plasma 31 MEQ/L 22 - 30 H [facility] Glucose [Mass/volume] in Serum or Plasma 218 MG/DL 65 - 110 H [facility] BUN 22 MG/DL 7 - [address] [facility] Creatinine [Mass/volume] in Serum or Plasma 0.7 MG/DL 0.7 - 1.5 [facility] BUN/CREAT 31 8 - [address] [facility] Protein [Mass/volume] in Serum or Plasma 5.8 G/DL 6.3 - 8.2 L [facility] Albumin [Mass/volume] in Serum or Plasma 3.1 G/DL 3.9 - 5.0 L [facility] Globulin [Mass/volume] in Serum by calculation 2.7 GM/DL 2.4 - 3.2 [facility] A/G RATIO 1.1 0.8 - 2.0 [facility] Calcium [Mass/volume] in Serum or Plasma 9.0 MG/DL 8.4 - 10.2 [facility] Bilirubin.total [Mass/volume] in Serum or Plasma <0.7 MG/DL 0.2 - 1.3 [facility] Alkaline phosphatase [Enzymatic activity/volume] in Serum or Plasma 72 U/L 38 - 126 [facility] Aspartate aminotransferase [Enzymatic activity/volume] in Serum or Plasma 21 U/L 5 - 40 [facility] Alanine aminotransferase [Enzymatic activity/volume] in Seru m or Plasma 305 U/L 7 - 56 H [facility] Anion gap 3 in Serum or Plasma 7.0 mmol/L 8.0 - 16.0 L [facility] 65 [facility] NON-AA GFR >60 mL/min [facility] AFR AMER GFR >60 mL/min [facility] Male GFR In terprentation 20-49 [...] >32 mL/min Normal ID Date Data Source [id number] 07/14/2020 06:49:00 AM EST [facility] Name Value Range Interpretation Code Description Data Sanjuana rce(s) Supporting Document(s) CBC W/AUTOMATED DIFF [facility] COMPLETE BLOOD COUNT Leukocytes [#/volume] in Blood by Automated count 14.4 10^3/uL 4.2 - 11.0 H [facility] Erythrocytes [#/volume] in Blood by Automated count 4.84 10^6/uL 4. 50 - 6.30 [facility] Hemoglobin [Mass/volume] in Blood 11.7 g/dL 14.0 - 16.0 L [facility] Hematocrit [Volume Fraction] of Blood by Automated count 38.3 % 4 1.0 - 51.0 L [facility] Erythrocyte mean corpuscular volume [Entitic volume] by Auto mated count 79.1 fL 80.0 - 94.0 L [facility] Erythrocyte mean corpuscular hemoglobin [Entitic mass] by Automated count 24.2 pg 27.0 - 34.0 L [facility] Erythrocyte mean corpuscular hemoglobin concentration [Mass/volume] by Automated count 30.5 g/dL 31.0 - 36.0 L [facility] Erythrocyte distribution width [Ratio] by Automated count 17.0 % 11.5 - 14.8 H [facility] Platelets [#/volume] in Blood by Automated count 445 10^3/uL 150 - 45 0 [facility] Platelet mean volume [Entitic volume] in Blood by Automated count 9.9 fL 7.4 - 10.4 [facility] Neutrophils/100 leukocytes in Blood by Automated count 83.6 % 37. 0 - 80.0 H [facility] Lymphocytes/100 leukocytes in Blood by Manual count 7.5 % 25.0 - 40.0 L [facility] Monocytes/100 leukocytes in Blood by Automated count 6.9 % 3.0 - 8.0 [facility] Eosinophils/100 leukocytes in Blood by Automated count 0.1 % 0.0 - 7.0 [facility] Basophils/100 leukocytes in Blood by Automated count 0.3 % 0.0 - 2.0 [facility] %IG 1.6 % 0.0 - 0.[address] [facility] %NR[facility] 0.0 % 0.0 - 0.0 [facility] al Neutrophils [#/volume] in Blood by Automated count 12.02 10^3/uL 2. 00 - 6.90 H [facility] Lymphocytes [#/volume] in Blood by Automated count 1.08 10^3/uL 0.60 - 3.40 [facility] Monocytes [#/volume] in Blood by Automated count 0.99 10^3/uL 0.00 - 0.90 H [facility] Eosinophils [#/volume] in Blood by Automated count 0.01 10^3/uL 0.00 - 0.70 [facility] Basophils [#/volume] in Blood by Automated count 0.04 10^3/uL 0.00 - 0.20 [facility] #IG 0.23 10^3/uL 0.00 - 0.10 H [facility] ospital #NRBC 0.00 10^3/uL 0.00 - 0.00 [facility]ital MANUAL DIFF NOT INDICATED [facility] RBC MORPH NOT INDICATED [facility] spital ID Date Data Source [id number] 07/13/2020 07:01:00 AM EST [facility] Name Value Range Interpretation Code Description Data Sanjuana rce(s) Supporting Document(s) COMPREHENSIVE METABOLIC PANEL [facility] COMPREHENSIVE METABOLIC PANEL Sodium [Moles/volume] in Serum or Plasma 137 mEq/L 134 - 153 [facility] Potassium [Moles/volume] in Serum or Plasma 4.9 mEq/L 3.6 - 5.0 [facility] Chloride [Moles/volume] in Serum or Plasma 97 mEq/L 98 - 107 L [facility] Carbon dioxide, total [Moles/volume] in Serum or Plasma 30 MEQ/L 22 - 30 [facility] Glucose [Mass/volume] in Serum or Plasma 178 MG/DL 65 - 110 H [facility] BUN 23 MG/DL 7 - 21 H [facility] al Creatinine [Mass/volume] in Serum or Plasma 0.8 MG/DL 0.7 - 1.5 [facility] BUN/CREAT 29 8 - 27 H [facility] Protein [Mass/volume] in Serum or Plasma 5.8 G/DL 6.3 - 8.2 L [facility] Albumin [Mass/volume] in Serum or Plasma 3.1 G/DL 3.9 - 5.0 L [facility] Globulin [Mass/volume] in Serum by calculation 2.7 GM/DL 2.4 - 3.2 [facility] A/G RATIO 1.1 0.8 - 2.0 [facility] Calcium [Mass/volume] in Serum or Plasma 8.9 MG/DL 8.4 - 10.2 [facility] Bilirubin.total [Mass/volume] in Serum or Plasma <0.7 MG/DL 0.2 - 1.3 [facility] Alkaline phosphatase [Enzymatic activity/volume] in Serum or Plasma 75 U/L 38 - 126 [facility] Aspartate aminotransferase [Enzymatic activity/volume] in Serum or Plasma 28 U/L 5 - 40 [facility] Alanine aminotransferase [Enzymatic activity/volume] in Seru m or Plasma 442 U/L 7 - 56 H [facility] Anion gap 3 in Serum or Plasma 10.0 mmol/L 8.0 - 16.0 [facility] 65 [facility] NON-AA GFR >60 mL/min [facility] AFR AMER GFR >60 mL/min [facility] Male GFR In terprentation 20-49 [...] >32 mL/min Normal ID Date Data Source [id number] 07/13/2020 06:21:00 AM EST [facility] Name Value Range Interpretation Code Description Data Sanjuana rce(s) Supporting Document(s) CBC W/AUTOMATED DIFF [facility] COMPLETE BLOOD COUNT Leukocytes [#/volume] in Blood by Automated count 12.7 10^3/uL 4.2 - 11.0 H [facility] Erythrocytes [#/volume] in Blood by Automated count 5.04 10^6/uL 4. 50 - 6.30 [facility] Hemoglobin [Mass/volume] in Blood 12.1 g/dL 14.0 - 16.0 L [facility] Hematocrit [Volume Fraction] of Blood by Automated count 39.8 % 4 1.0 - 51.0 L [facility] Erythrocyte mean corpuscular volume [Entitic volume] by Auto mated count 79.0 fL 80.0 - 94.0 L [facility] Erythrocyte mean corpuscular hemoglobin [Entitic mass] by Automated count 24.0 pg 27.0 - 34.0 L [facility] Erythrocyte mean corpuscular hemoglobin concentration [Mass/volume] by Automated count 30.4 g/dL 31.0 - 36.0 L [facility] Erythrocyte distribution width [Ratio] by Automated count 16.7 % 11.5 - 14.8 H [facility] Platelets [#/volume] in Blood by Automated count 426 10^3/uL 150 - 45 0 [facility] Platelet mean volume [Entitic volume] in Blood by Automated count 10.1 fL 7.4 - 10.4 [facility] Neutrophils/100 leukocytes in Blood by Automated count 85.9 % 37. 0 - 80.0 H [facility] Lymphocytes/100 leukocytes in Blood by Manual count 6.8 % 25.0 - 40.0 L [facility] Monocytes/100 leukocytes in Blood by Automated count 4.7 % 3.0 - 8.0 [facility] Eosinophils/100 leukocytes in Blood by Automated count 0.1 % 0.0 - 7.0 [facility] Basophils/100 leukocytes in Blood by Automated count 0.4 % 0.0 - 2.0 [facility] %IG 2.1 % 0.0 - 0.0 H [facility] %NRBC 0.2 % 0.0 - 0.0 H [facility] al Neutrophils [#/volume] in Blood by Automated count 10.91 10^3/uL 2. 00 - 6.90 H [facility] Lymphocytes [#/volume] in Blood by Automated count 0.86 10^3/uL 0.60 - 3.40 [facility] Monocytes [#/volume] in Blood by Automated count 0.59 10^3/uL 0.00 - 0.90 [facility] Eosinophils [#/volume] in Blood by Automated count 0.01 10^3/uL 0.00 - 0.70 [facility] Basophils [#/volume] in Blood by Automated count 0.05 10^3/uL 0.00 - 0.20 [facility] #IG 0.26 10^3/uL 0.00 - 0.10 [facility] #NRBC 0.02 10^3/uL 0.00 - 0.00 H [facility]spital MANUAL DIFF NOT INDICATED [facility] RBC MORPH NOT INDICATED [facility] ID Date Data Source [id number] 07/12/2020 01:50:00 PM EST [facility] Name Value Range Interpretation Code Description Data Sanjuana rce(s) Supporting Document(s) Potassium [Moles/volume] in Serum or Plasma 4.3 mEq/L 3.6 - 5.0 [facility] ID Date Data Source [id number] 07/12/2020 09:40:00 AM EST [facility] Name Value Range Interpretation Code Description Data Sanjuana rce(s) Supporting Document(s) CBC W/AUTOMATED DIFF [facility] COMPLETE BLOOD COUNT Leukocytes [#/volume] in Blood by Automated count 13.4 10^3/uL 4.2 - 11.0 H [facility] Erythrocytes [#/volume] in Blood by Automated count 5.19 10^6/uL 4. 50 - 6.30 [facility] Hemoglobin [Mass/volume] in Blood 12.6 g/dL 14.0 - 16.0 L [facility] Hematocrit [Volume Fraction] of Blood by Automated count 41.1 % 4 1.0 - 51.0 [facility] Erythrocyte mean corpuscular volume [Entitic volume] by Auto mated count 79.2 fL 80.0 - 94.0 L [facility] Erythrocyte mean corpuscular hemoglobin [Entitic mass] by Automated count 24.3 pg 27.0 - 34.0 L [facility] Erythrocyte mean corpuscular hemoglobin concentration [Mass/volume] by Automated count 30.7 g/dL 31.0 - 36.0 L [facility] Erythrocyte distribution width [Ratio] by Automated count 16.5 % 11.5 - 14.8 H [facility] Platelets [#/volume] in Blood by Automated count 461 10^3/uL 150 - 45 0 H [facility] Platelet mean volume [Entitic volume] in Blood by Automated count 9.7 fL 7.4 - 10.4 [facility] Neutrophils/100 leukocytes in Blood by Automated count 83.2 % 37. 0 - 80.0 H [facility] Lymphocytes/100 leukocytes in Blood by Manual count 9.3 % 25.0 - 40.0 L [facility] Monocytes/100 leukocytes in Blood by Automated count 6.0 % 3.0 - 8.0 [facility] Eosinophils/100 leukocytes in Blood by Automated count 0.0 % 0.0 - 7.0 [facility] Basophils/100 leukocytes in Blood by Automated count 0.2 % 0.0 - 2.0 [facility] %IG 1.3 % 0.0 - 0.0 H [facility] %NRBC 0.0 % 0.0 - 0.0 [facility] al Neutrophils [#/volume] in Blood by Automated count 11.14 10^3/uL 2. 00 - 6.90 H [facility] Lymphocytes [#/volume] in Blood by Automated count 1.25 10^3/uL 0.60 - 3.40 [facility] Monocytes [#/volume] in Blood by Automated count 0.81 10^3/uL 0.00 - 0.90 [facility] Eosinophils [#/volume] in Blood by Automated count 0.00 10^3/uL 0.00 - 0.70 [facility] Basophils [#/volume] in Blood by Automated count 0.03 10^3/uL 0.00 - 0.20 [facility] #IG 0.18 10^3/uL 0.00 - 0.10 [facility] #NRBC 0.00 10^3/uL 0.00 - 0.00 [facility]ital MANUAL DIFF NOT INDICATED [facility] RBC MORPH NOT INDICATED [facility] spital ID Date Data Source [id number] 07/12/2020 09:40:00 AM [facility] Name Value Range Interpretation Code Description Data Sanjuana rce(s) Supporting Document(s) Ferritin [Mass/volume] in Serum or Plasma 413.0 ng/mL 5.0 - 244 H [facility] ID Date Data Source [id number] 07/12/2020 09:40:00 AM [facility] Name Value Range Interpretation Code Description Data Sanjuana rce(s) Supporting Document(s) Lactate dehydrogenase [Enzymatic activity/volume] in Serum o r Plasma 299 U/L 135 - 225 H [facility] ID Date Data Source [id number] 07/12/2020 09:01:00 AM [facility] Name Value Range Interpretation Code Description Data Sanjuana rce(s) Supporting Document(s) C reactive protein [Mass/volume] in Serum or Plasma by High sensitivity method 76.71 MG/L 1.00 - 3.00 H [facility]/S HS-CRP CUT-OFF: RELATIVE RISK: <1.0 mg/L Low 1.0 - 3.0 mg/L Average >3.0 mg/L High Optimally, the average of HS-CRP results repeated two weeks apart should be used for risk assessment. ID Date Data Source [id number] 07/12/2020 09:00:00 AM [facility] Name Value Range Interpretation Code Description Data Sanjuana rce(s) Supporting Document(s) BNP 537 PG/ML 0 - 125 H [facility] al ID Date Data Source [id number] 07/12/2020 09:00:00 AM [facility] Name Value Range Interpretation Code Description Data Sanjuana rce(s) Supporting Document(s) COMPREHENSIVE METABOLIC PANEL [facility] COMPREHENSIVE METABOLIC PANEL Sodium [Moles/volume] in Serum or Plasma 133 mEq/L 134 - 153 L [facility] Potassium [Moles/volume] in Serum or Plasma 5.3 mEq/L 3.6 - 5.0 H [facility] Chloride [Moles/volume] in Serum or Plasma 95 mEq/L 98 - 107 L [facility] Carbon dioxide, total [Moles/volume] in Serum or Plasma 28 MEQ/L 22 - 30 [facility] Glucose [Mass/volume] in Serum or Plasma 195 MG/DL 65 - 110 H [facility] BUN 19 MG/DL 7 - 21 [facility] Creatinine [Mass/volume] in Serum or Plasma 0.7 MG/DL 0.7 - 1.5 [facility] BUN/CREAT 27 8 - 27 [facility] Protein [Mass/volume] in Serum or Plasma 6.3 G/DL 6.3 - 8.2 [facility] Albumin [Mass/volume] in Serum or Plasma 2.8 G/DL 3.9 - 5.0 L [facility] Globulin [Mass/volume] in Serum by calculation 3.5 GM/DL 2.4 - 3.2 H [facility] A/G RATIO 0.8 0.8 - 2.0 [facility] Calcium [Mass/volume] in Serum or Plasma 8.8 MG/DL 8.4 - 10.2 [facility] Bilirubin.total [Mass/volume] in Serum or Plasma <0.7 MG/DL 0.2 - 1.3 [facility] Alkaline phosphatase [Enzymatic activity/volume] in Serum or Plasma 79 U/L 38 - 126 [facility] Aspartate aminotransferase [Enzymatic activity/volume] in Serum or Plasma 55 U/L 5 - 40 H [facility] Alanine aminotransferase [Enzymatic activity/volume] in Seru m or Plasma 642 U/L 7 - 56 H [facility] Anion gap 3 in Serum or Plasma 10.0 mmol/L 8.0 - 16.0 [facility] 65 [facility] NON-AA GFR >60 mL/min [facility] AFR AMER GFR >60 mL/min [facility] Male GFR In terprentation 20-49 yrs >60 [...] >32 mL/min Normal ID Date Data Source [id number] 07/11/2020 08:13:[address] [facility] Name Value Range Interpretation Code Description Data Sanjuana e(s) Supporting Document(s) SARS coronavirus [address] [facility] This lab was ordered by [facility] and reported by [email or web address]. ID Date Data Source [id number] 07/12/2020 02:15:00 PM EST [facility] Name Value Range Interpretation Code Description Data Sanjuana rce(s) Supporting Document(s) SARS-CoV-2, DOMINICK Not Detected Not Detected [facility] This nucleic acid amplification test was developed and its performancecharacteristics determined by [facility]. Nucleic acidamplification tests include PCR and TMA. [...] in this assay. ID Date Data Source [id number] 07/11/2020 08:56:00 AM EST [facility] Name Value Range Interpretation Code Description Data Sanjuana rce(s) Supporting Document(s) COMPREHENSIVE METABOLIC PANEL [facility] COMPREHENSIVE METABOLIC PANEL Sodium [Moles/volume] in Serum or Plasma 137 mEq/L 134 - 153 [facility] Potassium [Moles/volume] in Serum or Plasma 4.9 mEq/L 3.6 - 5.0 [facility] Chloride [Moles/volume] in Serum or Plasma 98 mEq/L 98 - 107 [facility] Carbon dioxide, total [Moles/volume] in Serum or Plasma 32 MEQ/L 22 - 30 H [facility] Glucose [Mass/volume] in Serum or Plasma 213 MG/DL 65 - 110 H [facility] BUN 14 MG/DL 7 - [facility] Creatinine [Mass/volume] in Serum or Plasma 0.6 MG/DL 0.7 - 1.5 L [facility] BUN/CREAT 23 8 - 27 [facility] al Protein [Mass/volume] in Serum or Plasma 5.6 G/DL 6.3 - 8.2 L [facility] Albumin [Mass/volume] in Serum or Plasma 2.9 G/DL 3.9 - 5.0 L [facility] Globulin [Mass/volume] in Serum by calculation 2.7 GM/DL 2.4 - 3.2 [facility] A/G RATIO 1.1 0.8 - 2.0 [facility] al Calcium [Mass/volume] in Serum or Plasma 8.5 MG/DL 8.4 - 10.2 [facility] Bilirubin.total [Mass/volume] in Serum or Plasma <0.7 MG/DL 0.2 - 1.3 [facility] Alkaline phosphatase [Enzymatic activity/volume] in Serum or Plasma 83 U/L 38 - 126 [facility] Aspartate aminotransferase [Enzymatic activity/volume] in Serum or Plasma 108 U/L 5 - 40 H [facility] Alanine aminotransferase [Enzymatic activity/volume] in Seru m or Plasma 965 U/L 7 - 56 H [facility] Anion gap 3 in Serum or Plasma 7.0 mmol/L 8.0 - 16.0 L [facility] AGE 65 yrs [facility] al NON-AA GFR >60 mL/min [facility] ital AFR AMER GFR >60 mL/min [facility] Male GFR In terprentation 20-49 [...] >32 mL/min Normal ID Date Data Source [id number] 07/11/2020 09:12:00 AM EST [facility] Name Value Range Interpretation Code Description Data Sanjuana rce(s) Supporting Document(s) CBC W/AUTOMATED DIFF [facility] COMPLETE BLOOD COUNT Leukocytes [#/volume] in Blood by Automated count 12.6 10^3/uL 4.2 - 11.0 H [facility] Erythrocytes [#/volume] in Blood by Automated count 4.85 10^6/uL 4. 50 - 6.30 [facility] Hemoglobin [Mass/volume] in Blood 11.8 g/dL 14.0 - 16.0 L [facility] Hematocrit [Volume Fraction] of Blood by Automated count 38.6 % 4 1.0 - 51.0 L [facility] Erythrocyte mean corpuscular volume [Entitic volume] by Auto mated count 79.6 fL 80.0 - 94.0 L [facility] Erythrocyte mean corpuscular hemoglobin [Entitic mass] by Automated count 24.3 pg 27.0 - 34.0 L [facility] Erythrocyte mean corpuscular hemoglobin concentration [Mass/volume] by Automated count 30.6 g/dL 31.0 - 36.0 L [facility] Erythrocyte distribution width [Ratio] by Automated count 16.2 % 11.5 - 14.8 H [facility] Platelets [#/volume] in Blood by Automated count 409 10^3/uL 150 - 45 0 [facility] Platelet mean volume [Entitic volume] in Blood by Automated count 9.4 fL 7.4 - 10.4 [facility] Neutrophils/100 leukocytes in Blood by Automated count 81.4 % 37. 0 - 80.0 H [facility] Lymphocytes/100 leukocytes in Blood by Manual count 9.8 % 25.0 - 40.0 L [facility] Monocytes/100 leukocytes in Blood by Automated count 6.8 % 3.0 - 8.0 [facility] Eosinophils/100 leukocytes in Blood by Automated count 0.9 % 0.0 - 7.0 [facility] Basophils/100 leukocytes in Blood by Automated count 0.2 % 0.0 - 2.0 [facility] %IG 0.9 % 0.0 - 0.[address] [facility] %NRBC 0.0 % 0.0 - 0.0 [facility] al Neutrophils [#/volume] in Blood by Automated count 10.22 10^3/uL 2. 00 - 6.90 H [facility] Lymphocytes [#/volume] in Blood by Automated count 1.23 10^3/uL 0.60 - 3.40 [facility] Monocytes [#/volume] in Blood by Automated count 0.85 10^3/uL 0.00 - 0.90 [facility] Eosinophils [#/volume] in Blood by Automated count 0.11 10^3/uL 0.00 - 0.70 [facility] Basophils [#/volume] in Blood by Automated count 0.03 10^3/uL 0.00 - 0.20 [facility] #IG 0.11 10^3/uL 0.00 - 0.10 [facility] #NRBC 0.00 10^3/uL 0.00 - 0.00 [facility] ospital MANUAL DIFF NOT INDICATED [facility] RBC MORPH NOT INDICATED [facility] spital ID Date Data Source [id number] 07/10/2020 04:06:00 PM [facility] Name Value Range Interpretation Code Description Data Sanjuana rce(s) Supporting Document(s) Vancomycin [Mass/volume] in Serum or Plasma --trough 6.9 ug/mL 10.0 - 15.0 L [facility] TROUG H First trough is drawn 30 minutes prior to fourth dose. If patient is not hemodynamically stable, a trough is obtained as deemed medically necessary. If patient is hemodynamically stable, a trough should be drawn once a week. The trough is drawn 30 minutes prior to the next dose. Mild Infections Trough 10-15 mg/L Severe Infections Trough 15-20 mg/L MOVERS Infections Trough 20-25 mg/L *Severe Infections - Endocarditis, Osteomyelitis, Hospital Acquired Pneumonia, Sepsis ID Date Data Source [id number] 07/15/2020 10:39:00 AM [facility] [address] Name Value Range Interpretation Code Description Data Sanjuana rce(s) Supporting Document(s) Bacteria identified in Blood by Culture [facility] NO GROWTH AFTER 5 DAYS ID Date Data Source [id number] 07/16/2020 09:30:00 PM [facility] Name Value Range Interpretation Code Description Data Sanjuana rce(s) Supporting Document(s) CULTURE BLOOD [facility] spital _CULTURE BLOOD_{ PRELIM TEST PERFORMED AT [address] [address] CLIA# [id number] SEE SCANNED REPORT ID Date Data Source [id number] 07/16/2020 09:29:00 PM [facility] Name Value Range Interpretation Code Description Data Sanjuana rce(s) Supporting Document(s) CULTURE BLOOD [facility] spital _CULTURE BLOOD_{ PRELIM [place] [address] IA# [id number] SEE SCANNED REPORT ID Date Data Source [id number] 07/10/2020 07:52:00 AM EST [facility] Name Value Range Interpretation Code Description Data Sanjuana rce(s) Supporting Document(s) CBC W/AUTOMATED DIFF [facility] COMPLETE BLOOD COUNT Leukocytes [#/volume] in Blood by Automated count 14.6 10^3/uL 4.2 - 11.0 H [facility] Erythrocytes [#/volume] in Blood by Automated count 4.42 10^6/uL 4. 50 - 6.30 L [facility] Hemoglobin [Mass/volume] in Blood 10.6 g/dL 14.0 - 16.0 L [facility] Hematocrit [Volume Fraction] of Blood by Automated count 35.4 % 4 1.0 - 51.0 L [facility] Erythrocyte mean corpuscular volume [Entitic volume] by Auto mated count 80.1 fL 80.0 - 94.0 [facility] Erythrocyte mean corpuscular hemoglobin [Entitic mass] by Automated count 24.0 pg 27.0 - 34.0 L [facility] Erythrocyte mean corpuscular hemoglobin concentration [Mass/volume] by Automated count 29.9 g/dL 31.0 - 36.0 L [facility] Erythrocyte distribution width [Ratio] by Automated count 16.3 % 11.5 - 14.8 H [facility] Platelets [#/volume] in Blood by Automated count 437 10^3/uL 150 - 45 0 [facility] Platelet mean volume [Entitic volume] in Blood by Automated count 9.3 fL 7.4 - 10.4 [facility] Neutrophils/100 leukocytes in Blood by Automated count 83.8 % 37. 0 - 80.0 H [facility] Lymphocytes/100 leukocytes in Blood by Manual count 7.2 % 25.0 - 40.0 L [facility] Monocytes/100 leukocytes in Blood by Automated count 8.2 % 3.0 - 8.0 H [facility] Eosinophils/100 leukocytes in Blood by Automated count 0.0 % 0.0 - 7.0 [facility] Basophils/100 leukocytes in Blood by Automated count 0.1 % 0.0 - 2.0 [facility] %IG 0.7 % 0.0 - 0.[address] [facility] %NRBC 0.2 % 0.0 - 0.0 H [facility] al Neutrophils [#/volume] in Blood by Automated count 12.26 10^3/uL 2. 00 - 6.90 H [facility] Lymphocytes [#/volume] in Blood by Automated count 1.05 10^3/uL 0.60 - 3.40 [facility] Monocytes [#/volume] in Blood by Automated count 1.20 10^3/uL 0.00 - 0.90 H [facility] Eosinophils [#/volume] in Blood by Automated count 0.00 10^3/uL 0.00 - 0.70 [facility] Basophils [#/volume] in Blood by Automated count 0.01 10^3/uL 0.00 - 0.20 [facility] #IG 0.10 10^3/uL 0.00 - 0.10 [facility] #NRBC 0.03 10^3/uL 0.00 - 0.00 [facility] MANUAL DIFF SEE BELOW [facility] Segmented neutrophils/100 leukocytes in Blood by Manual count 90 % 37 - 80 H [facility] %LYMPH 5 % 25 - 40 L [facility] al %MONO 5 % 3 - 8 [facility] al RBC MORPH SEE BELOW [facility] al Anisocytosis [Presence] in Blood by Light microscopy 2+ SUSAN L: NONE SEEN A [facility] { SICKLE CELL (NORMAL: NONE SEEN ) Platelet adequacy [Presence] in Blood by Light microscopy IN CREASED NORMAL: NORMAL A [facility] COMMENT: _PLATELETS_SLIGHTLY_INCREAS ED 07/10/20.0752.TAD. . . ___ ID Date Data Source [id number] 07/10/2020 07:44:00 AM EST [facility] Name Value Range Interpretation Code Description Data Sanjuana rce(s) Supporting Document(s) COMPREHENSIVE METABOLIC PANEL [facility] COMPREHENSIVE METABOLIC PANEL Sodium [Moles/volume] in Serum or Plasma 138 mEq/L 134 - 153 [facility] Potassium [Moles/volume] in Serum or Plasma 4.3 mEq/L 3.6 - 5.0 [facility] Chloride [Moles/volume] in Serum or Plasma 101 mEq/L 98 - 107 [facility] Carbon dioxide, total [Moles/volume] in Serum or Plasma 32 MEQ/L 22 - 30 H [facility] Glucose [Mass/volume] in Serum or Plasma 169 MG/DL 65 - 110 H [facility] BUN 23 MG/DL 7 - [address] [facility] Creatinine [Mass/volume] in Serum or Plasma 0.7 MG/DL 0.7 - 1.5 [facility] BUN/CREAT 33 8 - [address] [facility] Protein [Mass/volume] in Serum or Plasma 5.7 G/DL 6.3 - 8.2 L [facility] Albumin [Mass/volume] in Serum or Plasma 2.9 G/DL 3.9 - 5.0 L [facility] Globulin [Mass/volume] in Serum by calculation 2.8 GM/DL 2.4 - 3.2 [facility] A/G RATIO 1.0 0.8 - 2.0 [facility] Calcium [Mass/volume] in Serum or Plasma 8.4 MG/DL 8.4 - 10.2 [facility] Bilirubin.total [Mass/volume] in Serum or Plasma <0.7 MG/DL 0.2 - 1.3 [facility] Alkaline phosphatase [Enzymatic activity/volume] in Serum or Plasma 85 U/L 38 - 126 [facility] Aspartate aminotransferase [Enzymatic activity/volume] in Serum or Plasma 320 U/L 5 - 40 H [facility] Anion gap 3 in Serum or Plasma 5.0 mmol/L 8.0 - 16.0 L [facility]GE [address] [facility] GFR >60 mL/min [facility] ital AFR AMER GFR >60 mL/min [facility] Male GFR In terprentation 20-49 [...] >32 mL/min Normal ID Date Data Source [id number] 07/09/2020 09:45:00 AM EST [facility] Name Value Range Interpretation Code Description Data Sanjuana rce(s) Supporting Document(s) COMPREHENSIVE METABOLIC PANEL [facility] COMPREHENSIVE METABOLIC PANEL Sodium [Moles/volume] in Serum or Plasma 139 mEq/L 134 - 153 [facility] Potassium [Moles/volume] in Serum or Plasma 4.7 mEq/L 3.6 - 5.0 [facility] Chloride [Moles/volume] in Serum or Plasma 102 mEq/L 98 - 107 [facility] Carbon dioxide, total [Moles/volume] in Serum or Plasma 30 MEQ/L 22 - 30 [facility] Glucose [Mass/volume] in Serum or Plasma 323 MG/DL 65 - 110 H [facility] BUN 40 MG/DL 7 - 21 H [facility] al Creatinine [Mass/volume] in Serum or Plasma 1.0 MG/DL 0.7 - 1.5 [facility] BUN/CREAT 40 8 - 27 H [facility] Protein [Mass/volume] in Serum or Plasma 5.7 G/DL 6.3 - 8.2 L [facility] Albumin [Mass/volume] in Serum or Plasma 2.8 G/DL 3.9 - 5.0 L [facility] Globulin [Mass/volume] in Serum by calculation 2.9 GM/DL 2.4 - 3.2 [facility] A/G RATIO 1.0 0.8 - 2.0 [facility] al Calcium [Mass/volume] in Serum or Plasma 8.4 MG/DL 8.4 - 10.2 [facility] Bilirubin.total [Mass/volume] in Serum or Plasma <0.7 MG/DL 0.2 - 1.3 [facility] Alkaline phosphatase [Enzymatic activity/volume] in Serum or Plasma 88 U/L 38 - 126 [facility] Aspartate aminotransferase [Enzymatic activity/volume] in Serum or Plasma 653 U/L 5 - 40 H [facility] Alanine aminotransferase [Enzymatic activity/volume] i n Serum or Plasma 1955 U/L 7 - 56 H [facility] Anion gap 3 in Serum or Plasma 7.0 mmol/L 8.0 - 16.0 L [facility] AGE 65 yrs [facility] al NON-AA GFR >60 mL/min [facility] ital AFR AMER GFR >60 mL/min [facility] Male GFR In terprentation 20-49 [...] >32 mL/min Normal ID Date Data Source [id number] 07/09/2020 07:16:00 AM EST [facility] Name Value Range Interpretation Code Description Data Sanjuana rce(s) Supporting Document(s) CBC W/AUTOMATED DIFF [facility] COMPLETE BLOOD COUNT Leukocytes [#/volume] in Blood by Automated count 13.7 10^3/uL 4.2 - 11.0 H [facility] Erythrocytes [#/volume] in Blood by Automated count 4.30 10^6/uL 4. 50 - 6.30 L [facility] Hemoglobin [Mass/volume] in Blood 10.6 g/dL 14.0 - 16.0 L [facility] Hematocrit [Volume Fraction] of Blood by Automated count 34.8 % 4 1.0 - 51.0 L [facility] Erythrocyte mean corpuscular volume [Entitic volume] by Auto mated count 80.9 fL 80.0 - 94.0 [facility] Erythrocyte mean corpuscular hemoglobin [Entitic mass] by Automated count 24.7 pg 27.0 - 34.0 L [facility] Erythrocyte mean corpuscular hemoglobin concentration [Mass/volume] by Automated count 30.5 g/dL 31.0 - 36.0 L [facility] Erythrocyte distribution width [Ratio] by Automated count 16.5 % 11.5 - 14.8 H [facility] Platelets [#/volume] in Blood by Automated count 448 10^3/uL 150 - 45 0 [facility] Platelet mean volume [Entitic volume] in Blood by Automated count 9.7 fL 7.4 - 10.4 [facility] Neutrophils/100 leukocytes in Blood by Automated count 88.8 % 37. 0 - 80.0 H [facility] Lymphocytes/100 leukocytes in Blood by Manual count 3.8 % 25.0 - 40.0 L [facility] Monocytes/100 leukocytes in Blood by Automated count 6.6 % 3.0 - 8.0 [facility] Eosinophils/100 leukocytes in Blood by Automated count 0.0 % 0.0 - 7.0 [facility] Basophils/100 leukocytes in Blood by Automated count 0.1 % 0.0 - 2.0 [facility] %IG 0.7 % 0.0 - 0.[address] [facility] %NRBC 0.0 % 0.0 - 0.0 [facility] al Neutrophils [#/volume] in Blood by Automated count 12.17 10^3/uL 2. 00 - 6.90 H [facility] Lymphocytes [#/volume] in Blood by Automated count 0.52 10^3/uL 0.60 - 3.40 L [facility] Monocytes [#/volume] in Blood by Automated count 0.91 10^3/uL 0.00 - 0.90 H [facility] Eosinophils [#/volume] in Blood by Automated count 0.00 10^3/uL 0.00 - 0.70 [facility] Basophils [#/volume] in Blood by Automated count 0.01 10^3/uL 0.00 - 0.20 [facility] #IG 0.09 10^3/uL 0.00 - 0.10 [facility] #NRBC 0.00 10^3/uL 0.00 - 0.00 [facility] MANUAL DIFF NOT INDICATED [facility] RBC MORPH NOT INDICATED [facility] spital ID Date Data Source [id number] 07/08/2020 12:18:00 PM [facility] Name Value Range Interpretation Code Description Data Sanjuana rce(s) Supporting Document(s) Glucose [Mass/volume] in Serum or Plasma 480 MG/DL 65 - 110 [facility] CALL/ READ BACK LATRICE ON [facility] BY: CM [facility] DATE/TIME 07/08/20 1218 [facility] spital ID Date Data Source [id number] 07/08/2020 09:23:00 AM [facility] [address] [place] [address] PHONE: [phone] FAX: [phone] Name .................. : JAROD Ross Acct Number.................. : [id number] ROOM. ................. : TR-06 Number ................... : [id number] Stay type ............. : E/R Discharge Date......... ... : Admit Date ......... : 07/07/20 Admit Phys .................... : MIRIAM ACUNA Date of ....... : 1955 Family Phys ................... : ADY Phone .................. : [phone] Age ................................ : 65 Film# .................. .:[id number] Sex ................................. : M Unsigned transcriptions are preliminary reports and do not represent a medical or legal document CT THORAX W/O CONTRAST [id number] COMPLETE:07/07/20 13:56 BEM 722 Reason(s): COPD CT SCAN OF THE CHEST WIT HOUT IV CONTRAST, 07/07/20: INDICATION: COPD. Comparison is [...] of this dictation. Page 1 of [address] [place] [address] PHONE: [phone] FAX: [phone] Name .................. : JAROD Ross Acct Number.................. : [id number] ROOM. ................. : TR-06 MR Number ................... : [id number] Stay type ............. : E/R Discharge Date......... ... : Admit Date ......... : 07/07/20 Admit Phys .................... : MIRIAM ACUNA Date of ....... : 1955 Family Phys ................... : ADY Phone .................. : [phone] Age ................................ : 65 Film# .................. .:[id number] Sex ................................. : M Unsigned transcriptions are preliminary reports and do not represent a medical or legal document CT THORAX W/O CONTRAST [id number] COMPLETE:07/07/20 13:56 BEM 722 Reason(s): COPD Electronically Reviewed and Signed By Tiffany Bergeron MD , 07/08/20 09:23, KGG Transcribe Initials: SSR, Transcribe Date: 07/07/20 14:43, Dictation Date: Copy for: [facility] Copy for: 710 [facility] REC Page 2 of 2 Name Value Range Interpretation Code Description Data Sanjuana rce(s) Supporting Document(s) ID Date Data Source [id number] 07/08/2020 09:23:00 AM EST [facility] [address] [place] [address] PHONE: [phone] FAX: [phone] Name .................. : JAROD Ross Acct Number.................. : [id number] ROOM. ................. : TR-06 Number ................... : [id number] Stay type ............. : E/R Discharge Date......... ... : Admit Date ......... : 07/07/20 Admit Phys .................... : MIRIAM ACUNA Date of ....... : 1955 Family Phys ................... : ADY Phone .................. : [phone] Age ................................ : 65 Film# .................. .:[id number] Sex ................................. : M Unsigned transcriptions are preliminary reports and do not represent a medical or legal document CHEST PORTABLE [id number] COMPLETE:07/07/20 13:02 BE 719 Reason(s): COPD PORTABLE [...] 07/07/20 13:28, Dictation Date: Copy for: 002 [facility] Copy for: [address] [facility] Page 1 of 1 Name Value Range Interpretation Code Description Data Sanjuana rce(s) Supporting Document(s) ID Date Data Source [id number] 07/08/2020 08:30:00 AM EST [facility] Name Value Range Interpretation Code Description Data Sanjuana rce(s) Supporting Document(s) COMPREHENSIVE METABOLIC PANEL [facility] COMPREHENSIVE METABOLIC PANEL Sodium [Moles/volume] in Serum or Plasma 139 mEq/L 134 - 153 [facility] Potassium [Moles/volume] in Serum or Plasma 4.5 mEq/L 3.6 - 5.0 [facility] Chloride [Moles/volume] in Serum or Plasma 99 mEq/L 98 - 107 [facility] Carbon dioxide, total [Moles/volume] in Serum or Plasma 29 MEQ/L 22 - 30 [facility] Glucose [Mass/volume] in Serum or Plasma 314 MG/DL 65 - 110 H [facility] BUN 57 MG/DL 7 - 21 [facility] Creatinine [Mass/volume] in Serum or Plasma 1.5 MG/DL 0.7 - 1.5 [facility] BUN/CREAT 38 8 - [address] [facility] Protein [Mass/volume] in Serum or Plasma 5.9 G/DL 6.3 - 8.2 L [facility] Albumin [Mass/volume] in Serum or Plasma 2.8 G/DL 3.9 - 5.0 L [facility] Globulin [Mass/volume] in Serum by calculation 3.1 GM/DL 2.4 - 3.2 [facility] A/G RATIO 0.9 0.8 - 2.0 [facility] al Calcium [Mass/volume] in Serum or Plasma 8.6 MG/DL 8.4 - 10.2 [facility] Bilirubin.total [Mass/volume] in Serum or Plasma <0.7 MG/DL 0.2 - 1.3 [facility] Alkaline phosphatase [Enzymatic activity/volume] in Serum or Plasma 81 U/L 38 - 126 [facility] Aspartate aminotransferase [Enzymatic activity/volume] in Serum or Plasma 1593 U/L 5 - 40 H [facility] Alanine aminotransferase [Enzymatic activity/volume] i n Serum or Plasma 2221 U/L 7 - 56 H [facility] Anion gap 3 in Serum or Plasma 11.0 mmol/L 8.0 - 16.0 [facility] AGE 65 yrs [facility] al NON-AA GFR 50 mL/min [facility] AMER GFR 60 mL/min [facility] Male GFR In terprentation 20-49 [...] >32 mL/min Normal ID Date Data Source [id number] 07/08/2020 08:13:00 AM [facility] Name Value Range Interpretation Code Description Data Sanjuana rce(s) Supporting Document(s) Magnesium [Mass/volume] in Serum or Plasma 2.1 MG/DL 1.7 - 2.2 [facility] ID Date Data Source [id number] 07/08/2020 08:11:00 AM [facility] Name Value Range Interpretation Code Description Data Sanjuana rce(s) Supporting Document(s) BNP 2102 PG/ML 0 - 125 H [facility] ID Date Data Source [id number] 07/08/2020 07:39:00 AM [facility] Name Value Range Interpretation Code Description Data Sanjuana rce(s) Supporting Document(s) Lactate [Moles/volume] in Serum or Plasma 1.5 MMOL/L 0.2 - 2.2 [facility] ID Date Data Source [id number] 07/08/2020 07:20:00 AM [facility] Name Value Range Interpretation Code Description Data Sanjuana rce(s) Supporting Document(s) CBC W/AUTOMATED DIFF [facility] COMPLETE BLOOD COUNT Leukocytes [#/volume] in Blood by Automated count 12.6 10^3/uL 4.2 - 11.0 H [facility] Erythrocytes [#/volume] in Blood by Automated count 4.17 10^6/uL 4. 50 - 6.30 L [facility] Hemoglobin [Mass/volume] in Blood 10.1 g/dL 14.0 - 16.0 L [facility] Hematocrit [Volume Fraction] of Blood by Automated count 33.1 % 4 1.0 - 51.0 L [facility] Erythrocyte mean corpuscular volume [Entitic volume] by Auto mated count 79.4 fL 80.0 - 94.0 L [facility] Erythrocyte mean corpuscular hemoglobin [Entitic mass] by Automated count 24.2 pg 27.0 - 34.0 L [facility] Erythrocyte mean corpuscular hemoglobin concentration [Mass/volume] by Automated count 30.5 g/dL 31.0 - 36.0 L [facility] Erythrocyte distribution width [Ratio] by Automated count 16.7 % 11.5 - 14.8 H [facility] Platelets [#/volume] in Blood by Automated count 432 10^3/uL 150 - 45 0 [facility] Platelet mean volume [Entitic volume] in Blood by Automated count 9.7 fL 7.4 - 10.4 [facility] Neutrophils/100 leukocytes in Blood by Automated count 91.4 % 37. 0 - 80.0 H [facility] Lymphocytes/100 leukocytes in Blood by Manual count 4.0 % 25.0 - 40.0 L [facility] Monocytes/100 leukocytes in Blood by Automated count 3.6 % 3.0 - 8.0 [facility] Eosinophils/100 leukocytes in Blood by Automated count 0.0 % 0.0 - 7.0 [facility] Basophils/100 leukocytes in Blood by Automated count 0.2 % 0.0 - 2.0 [facility] %IG 0.8 % 0.0 - 0.0 H [facility] %NRBC 0.0 % 0.0 - 0.0 [facility] Neutrophils [#/volume] in Blood by Automated count 11.55 10^3/uL 2. 00 - 6.90 H [facility] Lymphocytes [#/volume] in Blood by Automated count 0.50 10^3/uL 0.60 - 3.40 L [facility] Monocytes [#/volume] in Blood by Automated count 0.45 10^3/uL 0.00 - 0.90 [facility] Eosinophils [#/volume] in Blood by Automated count 0.00 10^3/uL 0.00 - 0.70 [facility] Basophils [#/volume] in Blood by Automated count 0.02 10^3/uL 0.00 - 0.20 [facility] #IG 0.10 10^3/uL 0.00 - 0.10 [facility] #NRBC 0.00 10^3/uL 0.00 - 0.00 [facility] MANUAL DIFF NOT INDICATED [facility] RBC MORPH NOT INDICATED [facility] spital ID Date Data Source [id number] 07/07/2020 08:35:00 PM EST [facility] [address] [place] [address] RESPIRATORY CARE REPORT ==== ---------NAME------- NUMBER SEX AGE ADMIT DISCElizabeth SHAHAY# F/C CARLTON Ross [id number] M 65 07/07/20 [id number] M4 I/P DATE OF : 1955 M/R# [id number] #: [id number] LOCATION: [place] [id number] COMP LETE:07/07/20 15:16 [place] [id number] PHYSICIAN: VANESA GE [facility] Name Value Range Interpretation Code Description Data Sanjuana rce(s) Supporting Document(s) ID Date Data Source [id number] 07/07/2020 07:11:00 PM [facility] Name Value Range Interpretation Code Description Data Sanjuana rce(s) Supporting Document(s) C reactive protein [Mass/volume] in Serum or Plasma by High sensitivity method >370.00 MG/L 1.00 - 3.00 H [facility] CDC/S HS-CRP CUT-OFF: RELATIVE RISK: <1.0 mg/L Low 1.0 - 3.0 mg/L Average >3.0 mg/L High Optimally, the average of HS-CRP results repeated two weeks apart should be used for risk assessment. ID Date Data Source [id number] 07/07/2020 07:10:00 PM [facility] Name Value Range Interpretation Code Description Data Sanjuana rce(s) Supporting Document(s) Lactate dehydrogenase [Enzymatic activity/volume] in Serum o r Plasma 2436 U/L 135 - 225 H [facility] ID Date Data Source [id number] 07/07/2020 07:10:00 PM [facility] Name Value Range Interpretation Code Description Data Sanjuana rce(s) Supporting Document(s) Ferritin [Mass/volume] in Serum or Plasma >2000.0 ng/mL 5.0 - 244 H [facility] ID Date Data Source [id number] 07/07/2020 06:35:00 PM [facility] Name Value Range Interpretation Code Description Data Sanjuana rce(s) Supporting Document(s) BASIC METABOLIC PANEL [facility] BASIC METABOLIC PANEL Sodium [Moles/volume] in Serum or Plasma 139 mEq/L 134 - 153 [facility] Potassium [Moles/volume] in Serum or Plasma 5.2 mEq/L 3.6 - 5.0 H [facility] Chloride [Moles/volume] in Serum or Plasma 98 mEq/L 98 - 107 [facility] Carbon dioxide, total [Moles/volume] in Serum or Plasma 27 MEQ/L 22 - 30 [facility] Glucose [Mass/volume] in Serum or Plasma 315 MG/DL 65 - 110 H [facility] BUN 61 MG/DL 7 - [address] [facility] Creatinine [Mass/volume] in Serum or Plasma 2.2 MG/DL 0.7 - 1.5 H [facility] BUN/CREAT 28 8 - 27 H [facility] Calcium [Mass/volume] in Serum or Plasma 8.5 MG/DL 8.4 - 10.2 [facility] Anion gap 3 in Serum or Plasma 14.0 mmol/L 8.0 - 16.0 [facility] [address] [facility] AMER GFR 39 mL/min [facility] NON-AA GFR 32 mL/min [facility] Male GFR Inter prentation 20-49 yrs [...] >32 mL/min Normal ID Date Data Source [id number] 07/07/2020 06:35:00 PM EST [facility] Name Value Range Interpretation Code Description Data Sanjuana rce(s) Supporting Document(s) Lactate [Moles/volume] in Serum or Plasma 2.6 MMOL/L 0.2 - 2.2 H [facility] ID Date Data Source [id number] 07/07/2020 11:35:00 AM EST [facility] 1 OrderSheet [facility] Emergency Department [address] [place] [address] Phone #: ext- [phone] 07/07/2020 11:34 Patient: DIANA OLIVERA Sex: M : 1955 Age: 65yWEIGHT:89.8 kg (S) HEIGHT:72 inches (S) BMI:26.9ALLERGIES: TAPECHIEF COMPLAINT: dyspnea, COPDDIAGNOSIS: Dyspnea, Pneumonia, Congestive heart failure, Respiratory failureLAB ORDERSOrder Description Priority Entered Acknowledged InitialedCBC w Diff STAT 11:47 07/07/2020 11:54 Miriam Almonte Riccardo Frank R.N. M.Addie.;CMP STAT 11:47 07/07/2020 11:54 Miriam Almonte Riccardo Frank R.NElizabeth M.Addie.;Lipase STAT 11:47 07/07/2020 11:54 Miriam Almonte [...] M.D.;Venous Blood Gas STAT 11:47 07/07/2020 11:55 Gage, 2 OrderSheet [facility] Emergency Department [address] [place] [address] Phone #: ext- [phone] 07/07/2020 11:34 Patient: [...] STAT 11:47 07/07/2020 11:55 Sorbero, 3 OrderSheet [facility] Emergency Department [address] [place] [address] Phone #: ext- [phone] 07/07/2020 11:34 Patient: [...] IVP 60 mg 12:19 07/07/2020 12:50 Sorbero, Darielarin Rigo Rojas R.N., M.D.;Zosyn- IVPB 4.5 gm 12:20 07/07/2020 12:51 Sorbero,(in 50 mL D5W, X1) Rigo Ge R.N., M.D.;NS IV : 100 mL/hr 13:39 07/07/2020 13:44 Sorbero, Rigo Ge.NElizabeth M.D.;Vancomycin IVPB 14:43 07/07/2020 15:05 Sorbero,(15 mg/kg) 1200 mg Rigo Ge R.N.with Dextrose M.D.;Intravenous 250 mL(D5W)GENERAL ORDERSOrder Description Priority Entered Acknowledged InitialedBlood Pressure 11:47 07/07/2020 11:54 Sorbero,Monitor Rigo Ge R.N. 4 OrderSheet [facility] Emergency Department [address] [place] [address] Phone #: ext- [phone] 07/07/2020 11:34 [id number] Sex: M : 1955 Age: 65y M.D.;Radiological Equipment Specialist 11:47 2019 11:54 Sorbero,(continuous) Rigo GeNElizabeth MAna.;EKG 11:47 07/07/2020 11:54 Sorbero, Rigo Ge R.NElizabeth M.D.;NPO 11:47 07/07/2020 11:54 Sorbero, Rigo Ge.N. M.D.;Obtain Old EKG 11:47 07/07/2020 11:54 SorberoMiriam Riccardo Frank R.N. M.D.;Obtain Old Records 11:47 07/07/2020 11:54 Sorbero, Rigo Ge.NElizabeth M.D.;Oxygen (40 %) 11:47 07/07/2020 12:18 Sorbero,(per [...] Gage,Hospitalist Rigo Ge R.N., M.D.; 5 OrderSheet [facility] Emergency Department [address] [place] [address] Phone #: ext- [phone] 07/07/2020 11:34 Patient: DIANA OLIVERA Sex: M : 1955 Age: 65 y[Electronically signed by Rigo Ge M.D. (17:06 07/07/2020)][Electronically signed by Bob Almonte R.N. (17:31 07/07/2020)][Electronically locked by Bob Almonte R.N. (17:31 07/07/2020)] Name Value Range Interpretation Code Description Data Sanjuana rce(s) Supporting Document(s) ID Date Data Source [id number] 07/07/2020 11:35:00 AM EST [facility] 1 Medication Reconciliation Report [facility] Emergency Department [address] [place] [address] Phone #: ext- [phone] 07/07/2020 11:34 [facility]: [id number] Sex: M : 1955 Age: 65yWeight: 89.8 [...] daily, at bedtime 2 Medication Reconciliation Report [facility] Emergency Department [address] [place] [address] Phone #: ext- [phone] 07/07/2020 11:34 Patient: DIANA OLIVERA Sex: M [...] rce(s) Supporting Document(s) ID Date Data Source [id number] 07/07/2020 11:35:00 AM EST [facility] 1 Medication Administration Record [facility] Emergency Department [address] [place] [address] Phone #: aha- [phone] 07/07/2020 11:34 Patient: DIANA OLIVERA Sex: M : 1955 Age: 65yWeight: 89.8 kgHeight/Length: 72 inBMI: 26.9ALLERGIES: TAPE Date/Time Medication Administered Medication OrderedStart NS [IV] NS IV 500 mL Bolus: : Bolus 78433:16 07/07/2020 Dose: IV Fluids mL, then 150 [...] #1 right ACGiven NITROGLYCERIN [TOPICAL OINTMENT] NitroGLYCERIN Ktimxgi79:49 07/07/2020 Dose: 1 in. Topical Ointment 1 in.Bob Almonte R.N.Given LASIX [IVP] Lasix IVP 60 mg12:50 07/07/2020 Dose: 60 mg IVPSBob north R.NElizabeth Site: #1 right ACStart ZOSYN [IVPB] (PIPERACILLIN Zosyn- IVPB 4.5 gm (in 50 mL12:51 07/07/2020 SOD-TAZOBACTAM SO) D5W, X1)Bob Almonte RElizabethNElizabeth Dose: 4.5 gm IVPB---- Rate: 100 mL/hr over 30 minute(s)Stop Dispensed: 50 mL bag13:44 07/07/2020 Site: #1 right Bob Matthews R.N.Start NS [IV] NS IV : 100 mL/hr13:44 07/07/2020 Dose: IV FluidsBob Almonte R.N. Rate: 100 mL/hr over 10 hour(s)---- Dispensed: 1000 mL bagStop Site: #1 right AC16:23 07/07/2020Bob Almonte R.N.Start VANCOMYCIN [IVPB] Vancomycin IVPB (15 mg/kg) 843003:05 07/07/2020 Dose: 1200 mg IVPB mg with Dextrose Intravenous 250Bob Almonte R.N. Rate: 167 mL/hr over 1.5 hour(s) mL (D5W)---- Dispensed: 250 mL bagStop Site: #2 right :33 07/07/2020Bob Almonte R.N. Name Value Range Interpretation Code Description Data [facility](s) Supporting Document(s) ID Date Data Source [id number] 07/07/2020 11:35:00 AM [facility] 1 General Instructions [facility] Emergency Department [address] [place] [address] Phone #: ext- [phone] 07/07/2020 11:34 Patient: DIANA OLIVERA Sex: M : 1955 Age: 65yAcute dyspnea.Chronic moderate systolic, left ventricular congestive heart failure.Acute respiratory failure with hypoxemia.Lobar pneumonia with hypoxemia, respiratory failure and sepsis. (Severe, B/L, R/O Covid).Rule Out CovidAcute Transaminitis.(Electronically signed by Rigo Ge M.D. 07/07/2020 17:06) Name Value Range Interpretation Code Description Data [facility](s) Supporting Document(s) ID Date Data Source [id number] 07/07/2020 11:35:00 AM [facility] 1 Clinical Report - Nurses [facility] Emergency Department [address] [place] [address] Phone #: ext- [phone] 07/07/2020 11:34 [facility]: [id number] Sex: M : 1955 Age: 65yTRIAGE Arrived by EMS. Historian: patient. ( presents with sa02 in 70's, shoulder pain). Triage time: 11:37 07/07/2020. Acuity: LEVEL 3. Chief Complaint: SHORTNESS OF BREATH and DIFFICULTY BREATHING. Alert. This started today. Treatment OPTICIAN APPRENTICE DISPENSING: None. SEPSIS SCREEN: SEPSIS SCREEN NEGATIVE. No [...] at bedtime. 2 Clinical Report - Nurses [facility] Emergency Department [address] [place] [address] Phone #: ext- [phone] 07/07/2020 11:34 Patient: [...] imported external medicalrecord. --11:42 07/07/20 Bob Almonte RElizabethN.ADDITIONAL SURGERIES:Am putation Lower Extremity (Left Great toe).C6 Corpectomy and Fusion c5-c6 w/ fibular strut graft .Cardiac catherization.Melanoma removal 1998. 3 Clinical Report - Nurses [facility] Emergency Department [address] [place] [address] Phone #: plu- [phone] 07/07/2020 11:34 [facility]: [id number] Sex: M : 1955 Age: 65y Rotator [...] administered by nonrebreather mask at 15 liters. school bus monitor, NIBP monitor and pulse oximeter placed on patient; monitor alarms on; see monitor strips. Patient gowned. Reassurance given. Two patient identifiers checked. Call light placed in reach. Side rails up x 2. Bed placed in lowest position. Brakes of bed on. Patient ready for evaluation- ED physician notified. --11:44 4 Clinical Report - Nurses [facility] Emergency Department [address] [place] [address] Phone #: ext- [phone] 07/07/2020 11:34 Patient: DIANA OLIVERA Sex: M : 1955 Age: 65y12 Bob Almonte R.N.11:47 07/07/20. Oxygen decreased to [...] andprecautions. Verbalizes understanding. --12:15 07/07/20 Bob Almonte R.NElizabeth12:01 07/07/2020 Duoneb Neb TX Nebulizer 2 unit dose [...] reaction and precautions. Verbalizes understanding. --12:07/07/20 Bob Almonte, R.N.Patient ID band checked for patient name and birthdate: patient confirmed. Catheterized urine collectedwith return of orange-colored clear urine; odor is foul-smelling; sample sent to lab for urinalysis. Specimenlabeled in the presence of the patient. --12:17 07/07/20 Bob Almonte R.N.12:15 07/07/20. BP: 112/91. MAP: 98. HR: 73. RR: 24. O2 saturation: 96%. --12:07/07/20 Lisa Nascimento ER Wjww676:23 07/07/2020 IV Fluids NS via IV site #1 Discontinued: bag #1 discontinued. Total amount infused: 50mL. IV patency established. IV site checked: no pain, redness, or swelling. IV flushed thoroughly. --12 Bob Almonte R.NElizabeth12:32 07/07/20. BP: 115/57. MAP: 76. HR: 74. RR: 23. O2 saturation: 94%. --12:32 07/07/20 Lisa Nascimento ER Tech1 5 Clinical Report - Nurses [facility] Emergency Department [address] [place] [address] Phone #: ext- [phone] 07/07/2020 11:34 Patient: [...] ofallergic reaction and precautions. Verbalizes understanding. --12:51 07/07/20 Bob Almonte R.NElizabeth12:58 07/07/20. BP: 120/58. MAP: 78. HR: 79. RR: 33. O2 saturation: 91%. --12:58 07/07/20 Bob Almonte R.N.13:28 07/07/20. BP: 112/52. MAP: 72. HR: 72. RR: 24. O2 saturation: 89%. --13:29 07/07/20 Lisa Nascimento ER Xjyd313:35 07/07/20. Reassurance given. Reassessment acuity: LEVEL 3. The patient reports nocomplaints, he is calm and resting quietly and he has had no adverse reaction. Overall patient status isimproved- he states feels better.RESPIRATORY: No respiratory distress.CVS: Normal sinus rhythm noted.SKIN: Skin is warm and dry. Skin color within normal limits. [facility] [place] [facility]. Two patient identifiers checked. Call [...] precautions. Verbalizesunderstanding. --13:44 07/07/20 So Bob bliss R.N.13:44 07/07/2020 Zosyn IVPB via IV site #1 Discontinued: bag #1 completed. Total amount infused: 50 mL.IV patency established. IV site checked: no pain, redness, or swelling. IV flushed thoroughly. --13: Bob Almonte R.N.14:00 07/07/20. BP: 126/114. MAP: 118. HR: 62. RR: 19. O2 saturation: 91%. --14:00 07/07/20 Lisa Nascimento ER Tech1 6 Clinical Report - Nurses [facility] Emergency Department [address] [place] [address] Phone #: ext- [phone] 07/07/2020 11:34 Patient: [...] NRB @ 15 liters. venkatesh made aware. MD to call RT for vapo therm.). Two patient identifiers checked. Call light placed inreach. Side rails up x 2. Bed placed in lowest position. Brakes of bed on. Patient ready for evaluation-ED physician notified. --14:28 07/07/20 Bob Almonte R.N.14:31 07/07/20. BP: 112/60. MAP: 77. HR: 72. RR: 15. O2 saturation: 60%. --14:31 07/07/20 [facility] Mukq921:35 07/07/20. ( no urine voided since lasix given.). --14:36 07/07/20 Bob Almonte R.N.14:59 07/07/20. BP: 105/60. MAP: 75. HR: 68. RR: 21. O2 saturation: 96%. --14:59 07/07/20 [facility] Lisa, Gato243:05 07/07/2020 Started 1200 mg of Vancomycin IVPB [...] now: 0/10.Additional comments: vapo therm. --15:31 07/07/[address] [facility] Tech [facility] Iqjj749:30 07/07/20. Reassurance given. Reassessment acuity: LEVEL 3. Reassessment after oxygenadministered. He reports no complaints, he is calm and resting quietly and he has had no adversereaction. Overall patient status is improved- he states feels better.RESPIRATORY: No respiratory distress. Two patient identifiers checked. Call light placed in reach.Side rails up x 2. Bed placed in lowest position. Brakes of bed on. --15:31 07/07/[address] [facility] TechLisa, ER Tech1 7 Clinical Report - Nurses [facility] Emergency Department [address] [place] [address] Phone #: ext- [phone] 07/07/2020 11:34 Patient: DIANA OLIVERA Sex: M : 1955 Age: 65y 16:04 07/07/20. BP: 110/61. MAP: 77. HR: 69. RR: 16. O2 saturation: 100%. --16:04 07/07/20 [place] it desktop support technicianLisa SolisTUCSON VA MEDICAL CENTER Tech1 16:23 07/07/2020 IV Fluids NS via IV site #2 Discontinued: bag #1 infused upon admission. Total amount infused: 200 mL. IV patency established. IV site checked: no pain, redness, or swelling. IV flushed thoroughly. --16:48 07/07/20 Bob Almonte, R.N. 16:33 07/07/2020 Vancomycin IVPB via IV site [...] rce(s) Supporting Document(s) ID Date Data Source [id number] 07/07/2020 11:35:00 AM EST [facility] 1 Clinical Report - Physicians/Mid Levels [facility] Emergency Department [address] [place] [address] Phone #: ext- [phone] 07/07/2020 11:34 [id number] Sex: M : 1955 Age: 65y Time Seen: 11:38 07/07/2020; initial patient contact. Arrived- By ambulance. Historian- patient, EMS personnel and [facility] nurse and records. Disposition decision: 14:39 07/07/2020.HISTORY [...] Mellitus. 2 Clinical Report - Physicians/Mid Levels [facility] Emergency Department [address] [place] [address] Phone #: ext- [phone] 07/07/2020 11:34 Patient: DIANA OLIVERA Sex: M : 1955 Age: 65yDehydration.Muscle Strain, [...] 01/15.Allergies:TAPE. 3 Clinical Report - Physicians/Mid Levels [facility] Emergency Department [address] [place] [address] Phone #: ext- [phone] 07/07/2020 11:34 Patient: DIANA OLIVERA Sex: M : 1955 Age: 65ySOCIAL HISTORY Former smoker, end date 12/2019. No alcohol use or drug use. No recent travel. Resides in a [facility].ADDITIONAL NOTES The nursing notes have been reviewed [...] 2.0) 4 Clinical Report - Physicians/Mid Levels [facility] Emergency Department [address] [place] [address] Phone #: ext- [phone] 07/07/2020 11:34 Patient: DIANA OLIVERA Sex: M : 1955 Age: 65y O2 SAT 95.6 % (95.0 - 98.0)ABG: (ILEANA: 07/07/2020 15:09) ( MsgRcvd 07/07/2020 15:10) CanceledCT Chest W/O Cont: (ILEANA: 07/07/2020 12:37) ( MsgRcvd 07/07/2020 14:44) In ProgressCT THORAX W/O CONTRASTReason(s): COPDTRANSPORTATION: S IV? O2? Oxygen?(Yes) Room: E Exam CT THORAX W/[place] [address] PHONE: [phone] FAX: [phone] Name .................. : JAROD Ross Acct Number.................. : [id number] ROOM. ................. : TR-06 Number ................... : [id number] Stay type ............. : E/R Discharge Date......... ... : Admit Date ......... : 07/07/20 Admit Phys .................... : MIRIAM ACUNA Date of ....... : 1955 Family Phys ................... : ADY Phone .................. : [phone] Age ................................ : 65 Film# .................. .:[id number] Sex ................................. : M Unsigned transcriptions are preliminary reports and do not represent a medical or legal document CT THORAX W/O CONTRAST [id number] COMPLETE:07/07/20 13:56 BEM 722 Reason(s): COPD Cough [...] mGycm. 5 Clinical Report - Physicians/Mid Levels [facility] Emergency Department [address] [place] [address] Phone #: ext- [phone] 07/07/2020 11:34 Patient: DIANA OLIVERA Sex: M : 1955 Age: 65y Examination dictated by PRAFUL Griffin. Examination was reviewed with Tiffany Bergeron MD, radiologist at the time of this dictation. Page 1 of 2 [facility] [address] [place] [address] PHONE: [phone] FAX: [phone] Name .................. : JAROD Ross Acct Number.................. : [id number] ROOM. ................. : TR-06 MR Number ................... : [id number] Stay type ............. : E/R Discharge Date......... ... : Admit Date ......... : 07/07/20 Admit Phys .................... : MIRIAM ACUNA Date of ....... : 1955 Family Phys ...... ............. : KUNNREMY Phone .................. : [phone] Age ................................ : 65 Film# .................. .:[id number] Sex ................................. : M Unsigned transcriptions are preliminary reports and do not represent a medical or legal document CT THORAX W/O CONTRAST [id number] COMPLETE:07/07/20 13:56 BEM 722 Reason(s): COPD Cough [...] CLEARED MOLECULAR TESTS. NEGATIVE RESULTSDO NOT PRECLUDE PDGN-RnF-7ITGISOBEM AND SHOULD NOT BE USED THE SOLE BASISFOR PATIENT MANAGEMENT DECISIONS.Influenza Nasal A B: (ILEANA: 07/07/2020 11:45) ( MsgRcvd 07/07/2020 12:48) Final results Test Result Flag Units (Reference) INFLUENZA A NEGATIVE (NORMAL: NEGAT INFLUENZA B NEGATIVE (NORMAL: NEGAT INFLUENZA A REENTER NEGATIVE (NORMAL: NEGAT 6 Clinical Report - Physicians/Mid Levels [facility] Emergency Department [address] [place] [address] Phone #: ext- [phone] 07/07/2020 11:34 Patient: [...] 8.2) 7 Clinical Report - Physicians/Mid Levels [facility] Emergency Department [address] [place] [address] Phone #: ext- [phone] 07/07/2020 11:34 Patient: DIANA OLIVERA Sex: M [...] Male GFR Interprentation 20-49 yrs >60 mL/min Tiznql87-76 yrs >56 mL/min Normal 60-69 yrs >49 mL/min Normal 70-79yrs>42 mL/min Normal 80 and above >35 mL/min Normal Female GFRInterpretation 20-39 yrs >60 mL/min Normal 40-49 yrs >58 mL/minNormal 50-59 yrs >51 mL/min Normal 60-69 yrs >45 mL/min Ogqdfz20-69 yrs >39 mL/min Normal 80 and above [...] VenousThrombosis, Pulmonary Embolus, Tissue heart valves, Acute NM Atrial Fibrillation, Valvular heart diseaseand recurrent Systemic Embolism. -International Normalized Ratio (INR): 2.5 - 3.5 forMechanical Prosthetic valve.Troponin-T: (ILEANA: 07/07/2020 11:45) ( [facility] 07/07/2020 12:41) Final results Test Result Flag Units (Reference) TROPONIN T 0.07 NG/ML (0.00 - 0.10) TROPONIN T0.1 ng/ml Recommended as the clinical threshold value forTroponin T.BNP: (ILEANA: 07/07/2020 11:45) ( [facility] 07/07/2020 12:51) Final results Test Result Flag Units (Reference) BNP 6319 H PG/ML (0 - 125)Magnesium: (ILEANA: 07/07/2020 11:45) ( [facility] 07/07/2020 12:51) Final results Test Result Flag Units (Reference) MAGNESIUM 2.4 H MG/DL (1.7 - 2.2)Lactic Acid: (ILEANA: 07/07/2020 11:45) ( [facility] 07/07/2020 13:49) Final results Test Result Flag Units (Reference) LACTIC ACID 2.4 H MMOL/L (0.2 - 2.2)Venous Blood Gas: (ILEANA: 07/07/2020 11:45) ( [facility] 07/07/2020 13:49) Final results 8 Clinical Report - Physicians/Mid Levels [facility] Emergency Department [address] [place] [address] Phone #: ext- [phone] 07/07/2020 11:34 [id number] Sex: M : 1955 Age: 65y Test [...] (40.0 - 85.0)Urinalysis: (ILEANA: 07/07/2020 12:25) ( [facility] 07/07/[place] 12:42) Final results Test Result Flag [...] Portable 1 View: (ILEANA: 07/07/2020 11:47) ( [facility] 07/07/2020 13:32) In ProgressCHEST PORTABLEReason(s): COPDTRANSPORTATION: P IV? O2? Oxygen?(Yes) Room: [place] [address] PHONE: [phone] FAX: [phone] Name .................. : JAROD Ross Acct Number.................. : [id number] ROOM. ................. : TR MR Number ................... : [id number] Stay type ............. : E/R Discharge Date......... ... : Admit Date ......... : 07/07/20 Admit Phys .................... : MIRIAM ACUNA Date of ....... : 1955 Family Phys ................... : [employer] Phone .................. : [phone] Age ................................ : 65 Film# .................. .:[id number] Sex ............ ..................... : M Unsigned transcriptions are preliminary reports and do not represent a medical or legal document CHEST PORTABLE [id number] COMPLETE:07/07/20 13:02 BE 719 Reason(s): COPD Shortness of Breath PORTABLE CHEST, 07/07/20: 9 Clinical Report - Physicians/Mid Levels [facility] Emergency Department [address] [place] [address] Phone #: ext- [phone] 07/07/2020 11:34 [id number] Sex: M : 1955 Age: 65y INDICATION: COPD. Comparison is made to a previous study from 04/01/2020. FINDINGS: Examination reveals near complete opacification of the bilateral lung fatima, left worse than right. Findings are worrisome for CHF versus pneumonia. Cardiac silhouette is enlarged. IMPRESSION: Bilateral infiltrates. CHF versus pneumonia. Examination dictated by PRAFUL Griffin. Examination was reviewed with Tiffany eBrgeron MD, radiologist at the time of this [...] intermittent desaturation; case discussed w Wendi Cali, [employer] hospitalist, who will admit 15:13 07/07/20. The [...] care. 10 Clinical Report - Physicians/Mid Levels [facility] Emergency Department [address] [place] [address] Phone #: ext- [phone] 07/07/2020 11:34 Patient: [...] e(s) Supporting Document(s) ID Date Data Source [id number] 07/07/2020 11:35:00 AM [facility] Addenda for DIANA OLIVERA VisitID: [id number] Date: 12:57Jaylon Cunningham made aware of med rec request.(Electronically signed by Prem Sam - 07/07/2020 12:57)07/07/2020 15:34T-SYSTEM overview sent to [facility] with U charge nurse.(Electronically signed by Prem Sam - 07/07/2020 15:34) Name Value Range Interpretation Code Description Data Sanjuana rce(s) Supporting Document(s) ID Date Data Source [id number] 07/07/2020 03:20:00 PM [facility] Name Value Range Interpretation Code Description Data Sanjuana rce(s) Supporting Document(s) pH of Arterial blood 7.36 7.34 - 7.44 [facility] Carbon dioxide [Partial pressure] in Blood 47.5 mm/HG 35.0 - 45.0 H [facility] Oxygen [Partial pressure] in Blood 82.4 mm/HG 75.0 - 100 [facility] Bicarbonate [Moles/volume] in Blood 26.5 meq/L 22.0 - 26.0 H [facility] TCO2 27.9 meq/L 23.0 - 27.0 [facility] Base excess in Blood by calculation 0.7 -2.0 - 2.0 [facility] O2 SAT 95.6 % 95.0 - 98.0 [facility] ID Date Data Source [id number] 07/10/2020 05:35:00 PM EST [facility] Name Value Range Interpretation Code Description Data Sanjuana rce(s) Supporting Document(s) SARS-CoV-2, DOMINICK Not Detected Not Detected [facility] This nucleic acid amplification test was developed and its performancecharacteristics determined by [facility]. Nucleic acidamplification tests include PCR and TMA. [...] in this assay. ID Date Data Source [id number] 07/07/2020 02:35:00 PM EST [facility] Name Value Range Interpretation Code Description Data Sanjuana rce(s) Supporting Document(s) [facility] 2 [facility] This lab was ordered by [facility] spital and reported by [facility]. ID Date Data Source [id number] 07/07/2020 12:41:00 PM [facility] Value Range Interpretation Code Description Data Sanjuana rce(s) Supporting Document(s) [facility] S[facility] R [facility] COLOR yellow NORMAL: Yellow [facility] ospital CLARITY clear NORMAL: Clear [facility] spital Specific gravity of Urine by Test strip 1.025 1.001 - 1.030 [facility] pH 5 5 - 9 [facility] al Glucose [Mass/volume] in Urine by Test strip NORM NORMAL: Negat [facility] Bilirubin.total [Presence] in Urine by Test strip NEG NORMAL: Negative [facility] Ketones [Presence] in Urine by Test strip NEG NORMAL: Negative [facility] Protein [Mass/volume] in Urine by Test strip 100 NORMAL: Negat [facility] Nitrite [Presence] in Urine by Test strip NEG NORMAL: Negative [facility] BLOOD NEG NORMAL: Negative [facility] Leukocyte esterase [Presence] in Urine by Test strip NEG SUSAN L: Negative [facility] Urobilinogen [Mass/volume] in Urine by Test strip 1 less ben n 1.0 mg/dL [facility] MICROSCOPIC See Below [facility] ital EPITHELIAL FEW NORMAL: NONE SEEN [facility] Bacteria [Presence] in Urine sediment by Light microscopy Tr ilia NORMAL: NONE SEEN [facility] ID Date Data Source [id number] 07/12/2020 09:24:00 AM [facility] Value Range Interpretation Code Description Data Sanjuana rce(s) Supporting Document(s) CULTURE BLOOD [facility] spital _CULTURE BLOOD_ [place] [address] CLIA# [id number] SEE SCANNED REPORT{ PRELIM ID Date Data Source [id number] 07/12/2020 09:24:00 AM [facility] Value Range Interpretation Code Description Data Sanjuana rce(s) Supporting Document(s) CULTURE BLOOD [facility] spital _CULTURE BLOOD_ TEST PERFORM ED AT [facility] [address] [place] [address] IA# [id number] SEE SCANNED REPORT{ PRELIM POS IN AEROBIC G+ COCCI IN CLUSTERPER LCDAYNE CALLED TO HANNAH 0421 07-09-2020 ID Date Data Source [id number] 07/09/2020 04:22:00 AM [facility] ANAEROBIC [id number] TO CORNELIUS ([facility]) AT 0415 BY JAH.The FilmArray BCID Panel is a qualitative multiplexednucleic [...] rce(s) Supporting Document(s) ID Date Data Source [id number] 07/07/2020 01:49:00 PM [facility] Name Value Range Interpretation Code Description Data Sanjuana rce(s) Supporting Document(s) pH of Serum or Plasma 7.29 7.32 - 7.43 L [facility] pCO2 V 60.4 mm/HG 38.0 - 51.0 [facility] pO2 V 24.7 mm/HG 30.0 - 55.0 [facility] Bicarbonate [Moles/volume] in Venous blood 28.4 meq/L 22.0 - 29.0 [facility] TCO2 V 30.3 meq/L 22.0 - 29.0 [facility] Base excess in Blood by calculation 0.9 -2.0 - 2.0 [facility] O2 SAT V 36.5 % 40.0 - 85.0 L [facility] ID Date Data Source [id number] 07/07/2020 01:49:00 PM [facility] Name Value Range Interpretation Code Description Data Sanjuana rce(s) Supporting Document(s) Lactate [Moles/volume] in Serum or Plasma 2.4 MMOL/L 0.2 - 2.2 H [facility] ID Date Data Source [id number] 07/07/2020 01:12:00 PM [facility] Name Value Range Interpretation Code Description Data Sanjuana rce(s) Supporting Document(s) Prothrombin time (PT) 22.0 SECONDS 11.0 - 15.5 H [facility] INR in Platelet poor plasma by Coagulation assay 1.82 0.93 - 1. 23 H [facility] aPTT in Blood by Coagulation assay 48.1 SECONDS 24.8 - 36.7 H [facility] \\BLDo\\INR INTERPRETATION\\BLDx\\ Therapeutic range for Coumadin and related oral anticoagulants. - International Normalized Ratio (INR): 2.0 - 3.0 for Venous Thrombosis, Pulmonary Embolus, Tissue heart valves, Acute NM Atrial Fibrillation, Valvular heart disease and recurrent Systemic Embolism. - International Normalized Ratio (INR): 2.5 - 3.5 for Mechanical Prosthetic valve. ID Date Data Source [id number] 07/07/2020 01:12:00 PM [facility] Name Value Range Interpretation Code Description Data Sanjuana rce(s) Supporting Document(s) COMPREHENSIVE METABOLIC PANEL [facility] COMPREHENSIVE METABOLIC PANEL Sodium [Moles/volume] in Serum or Plasma 138 mEq/L 134 - 153 [facility] Potassium [Moles/volume] in Serum or Plasma 5.5 mEq/L 3.6 - 5.0 H [facility] Chloride [Moles/volume] in Serum or Plasma 97 mEq/L 98 - 107 L [facility] Carbon dioxide, total [Moles/volume] in Serum or Plasma 30 MEQ/L 22 - 30 [facility] Glucose [Mass/volume] in Serum or Plasma 181 MG/DL 65 - 110 H [facility] BUN 57 MG/DL 7 - 21 H [facility] al Creatinine [Mass/volume] in Serum or Plasma 2.3 MG/DL 0.7 - 1.5 H [facility] BUN/CREAT 25 8 - 27 [facility] Protein [Mass/volume] in Serum or Plasma 6.8 G/DL 6.3 - 8.2 [facility] Albumin [Mass/volume] in Serum or Plasma 2.8 G/DL 3.9 - 5.0 L [facility] Globulin [Mass/volume] in Serum by calculation 4.0 GM/DL 2.4 - 3.2 H [facility] A/G RATIO 0.7 0.8 - 2.0 L [facility] Calcium [Mass/volume] in Serum or Plasma 8.6 MG/DL 8.4 - 10.2 [facility] Bilirubin.total [Mass/volume] in Serum or Plasma <0.7 MG/DL 0.2 - 1.3 [facility] Alkaline phosphatase [Enzymatic activity/volume] in Serum or Plasma 81 U/L 38 - 126 [facility] Aspartate aminotransferase [Enzymatic activity/volume] in Serum or Plasma 2791 U/L 5 - 40 H [facility] Alanine aminotransferase [Enzymatic activity/volume] i n Serum or Plasma 2163 U/L 7 - 56 H [facility] Anion gap 3 in Serum or Plasma 11.0 mmol/L 8.0 - 16.0 [facility]GE [address] [facility] GFR 30 mL/min [facility] AFR AMER GFR 37 mL/min [facility] Male GFR In terprentation 20-49 [...] >32 mL/min Normal ID Date Data Source [id number] 07/07/2020 12:51:00 PM [facility] Name Value Range Interpretation Code Description Data Sanjuana rce(s) Supporting Document(s) Magnesium [Mass/volume] in Serum or Plasma 2.4 MG/DL 1.7 - 2.2 H [facility] ID Date Data Source [id number] 07/07/2020 12:51:00 PM [facility] Value Range Interpretation Code Description Data Sanjuana rce(s) Supporting Document(s) BNP 6319 PG/ML 0 - 125 [facility] ID Date Data Source [id number] 07/07/2020 12:51:00 PM [facility] Value Range Interpretation Code Description Data Sanjuana rce(s) Supporting Document(s) Lipase [Enzymatic activity/volume] in Serum or Plasma 12 U/L 13 - 60 L [facility] ID Date Data Source [id number] 07/07/2020 12:47:00 PM [facility] Value Range Interpretation Code Description Data Sanjuana rce(s) Supporting Document(s) Influenza virus A Ag [Presence] in Nasopharynx by Immunoassa y NEGATIVE NORMAL: NEGATIVE [facility] Influenza virus B Ag [Presence] in Nasopharynx by Immunoassa y NEGATIVE NORMAL: NEGATIVE [facility] NEGATIVENEGATIVE PROCEDURAL CO NTROL VALID KIT LOT [...] other patient managementdecisions. ID Date Data Source [id number] 07/07/2020 12:47:00 PM [facility] Name Value Range Interpretation Code Description Data [facility]) Supporting Document(s) COVID-19 NOT DETECTED [facility] COVID-19 REENTER NOT DETECTED [facility] { PROCEDURAL CONTROL VALID KIT LOT # _[id number] 07/07/20.MD . KIT EXP DATE _10.22.20 07/07/20.MD . NORMAL RANGE IS NOT DETECTEDNEGATIVE RESULTS SHOULD BE TREATED PREUMPTIVE AND, IF INCONSISTENT WITHCLINICAL SIGNS AND SYMPTOMS OR NECESSARY FOR PATIENT MANAGEMENT, SHOULD BETESTED WITH DIFFERENT AUTHORIZED OR CLEARED MOLECULAR TESTS. NEGATIVE RESULTSDO NOT PRECLUDE SARS-CoV-2 INFECTION AND SHOULD NOT BE USED THE SOLE BASISFOR PATIENT MANAGEMENT DECISIONS. ID Date Data Source [id number] 07/07/2020 12:41:00 PM [facility] Name Value Range Interpretation Code Description Data [facility]) Supporting Document(s) TROPONIN T 0.07 NG/ML 0.00 - 0.10 [facility] spital TROPONIN T0.1 ng/ml Recommended as the c linical threshold value forTroponin T. ID Date Data Source [id number] 07/07/2020 12:39:00 PM [facility] Name Value Range Interpretation Code Description Data [facility](s) Supporting Document(s) CBC W/AUTOMATED DIFF [facility] COMPLETE BLOOD COUNT Leukocytes [#/volume] in Blood by Automated count 19.9 10^3/uL 4.2 - 11.0 H [facility] Erythrocytes [#/volume] in Blood by Automated count 4.54 10^6/uL 4. 50 - 6.30 [facility] Hemoglobin [Mass/volume] in Blood 11.1 g/dL 14.0 - 16.0 L [facility] Hematocrit [Volume Fraction] of Blood by Automated count 36.7 % 4 1.0 - 51.0 L [facility] Erythrocyte mean corpuscular volume [Entitic volume] by Auto mated count 80.8 fL 80.0 - 94.0 [facility] Erythrocyte mean corpuscular hemoglobin [Entitic mass] by Automated count 24.4 pg 27.0 - 34.0 L [facility] Erythrocyte mean corpuscular hemoglobin concentration [Mass/volume] by Automated count 30.2 g/dL 31.0 - 36.0 L [facility] Erythrocyte distribution width [Ratio] by Automated count 16.6 % 11.5 - 14.8 H [facility] Platelets [#/volume] in Blood by Automated count 484 10^3/uL 150 - 45 0 H [facility] Platelet mean volume [Entitic volume] in Blood by Automated count 9.5 fL 7.4 - 10.4 [facility] Neutrophils/100 leukocytes in Blood by Automated count 86.9 % 37. 0 - 80.0 H [facility] Lymphocytes/100 leukocytes in Blood by Manual count 5.6 % 25.0 - 40.0 L [facility] Monocytes/100 leukocytes in Blood by Automated count 6.0 % 3.0 - 8.0 [facility] Eosinophils/100 leukocytes in Blood by Automated count 0.1 % 0.0 - 7.0 [facility] 0.3 %IG 1.1 % 0.0 - 0.0 H [facility] al %NRBC 0.0 % 0.0 - 0.0 [facility] al Neutrophils [#/volume] in Blood by Automated count 17.31 10^3/uL 2. 00 - 6.90 H [facility] Lymphocytes [#/volume] in Blood by Automated count 1.11 10^3/uL 0.60 - 3.40 [facility] Monocytes [#/volume] in Blood by Automated count 1.19 10^3/uL 0.00 - 0.90 H [facility] Eosinophils [#/volume] in Blood by Automated count 0.01 10^3/uL 0.00 - 0.70 [facility] Basophils [#/volume] in Blood by Automated count 0.05 10^3/uL 0.00 - 0.20 [facility] #IG 0.21 10^3/uL 0.00 - 0.10 [facility] #NRBC 0.00 10^3/uL 0.00 - 0.00 [facility] ospital MANUAL DIFF SEE BELOW [facility] ital Segmented neutrophils/100 leukocytes in Blood by Manual count 89 % 37 - 80 [facility] BAND 0 % 0 - 5 [facility] al %LYMPH 5 % 25 - [address] [facility] %MONO 6 % 3 - 8 [facility] %EOS 0 % 0 - 7 [facility] 0 RBC MORPH NOT INDICATED [facility] ID Date Data Source [id number] 07/02/2020 02:58:00 PM EST [facility] Name Value Range Interpretation Code Description Data Sanjuana rce(s) Supporting Document(s) Erythrocyte sedimentation rate by Westergren method 18 mm/hr 0 - 20 [facility] SED RATE REENTER 18 [facility] ID Date Data Source [id number] 07/02/2020 08:23:00 AM EST [facility] Name Value Range Interpretation Code Description Data Sanjuana rce(s) Supporting Document(s) COMPREHENSIVE METABOLIC PANEL [facility] COMPREHENSIVE METABOLIC PANEL Sodium [Moles/volume] in Serum or Plasma 140 mEq/L 134 - 153 [facility] Potassium [Moles/volume] in Serum or Plasma 4.3 mEq/L 3.6 - 5.0 [facility] Chloride [Moles/volume] in Serum or Plasma 99 mEq/L 98 - 107 [facility] Carbon dioxide, total [Moles/volume] in Serum or Plasma 36 MEQ/L 22 - 30 H [facility] Glucose [Mass/volume] in Serum or Plasma 76 MG/DL 65 - 110 [facility] BUN 19 MG/DL 7 - 21 [facility] al Creatinine [Mass/volume] in Serum or Plasma 0.8 MG/DL 0.7 - 1.5 [facility] BUN/CREAT 24 8 - 27 [facility] al Protein [Mass/volume] in Serum or Plasma 6.8 G/DL 6.3 - 8.2 [facility] Albumin [Mass/volume] in Serum or Plasma 3.3 G/DL 3.9 - 5.0 L [facility] Globulin [Mass/volume] in Serum by calculation 3.5 GM/DL 2.4 - 3.2 H [facility] A/G RATIO 0.9 0.8 - 2.0 [facility] al Calcium [Mass/volume] in Serum or Plasma 9.1 MG/DL 8.4 - 10.2 [facility] Bilirubin.total [Mass/volume] in Serum or Plasma <0.7 MG/DL 0.2 - 1.3 [facility] Alkaline phosphatase [Enzymatic activity/volume] in Serum or Plasma 67 U/L 38 - 126 [facility] Aspartate aminotransferase [Enzymatic activity/volume] in Serum or Plasma 16 U/L 5 - 40 [facility] Alanine aminotransferase [Enzymatic activity/volume] in Seru m or Plasma 18 U/L 7 - 56 [facility] Anion gap 3 in Serum or Plasma 5.0 mmol/L 8.0 - 16.0 L [facility] AGE 65 yrs [facility] al NON-AA GFR >60 mL/min [facility] ital AFR AMER GFR >60 mL/min [facility] Male GFR In terprentation 20-49 [...] >32 mL/min Normal ID Date Data Source [id number] 07/02/2020 07:58:00 AM EST [facility] Name Value Range Interpretation Code Description Data Sanjuana rce(s) Supporting Document(s) CBC NO DIFF [facility] ital COMPLETE BLOOD COUNT Leukocytes [#/volume] in Blood by Automated count 9.0 10^3/uL 4.2 - 1 1.0 [facility] Erythrocytes [#/volume] in Blood by Automated count 4.68 10^6/uL 4. 50 - 6.30 [facility] Hemoglobin [Mass/volume] in Blood 11.5 g/dL 14.0 - 16.0 L [facility] Hematocrit [Volume Fraction] of Blood by Automated count 38.3 % 4 1.0 - 51.0 L [facility] Erythrocyte mean corpuscular volume [Entitic volume] by Auto mated count 81.8 fL 80.0 - 94.0 [facility] Erythrocyte mean corpuscular hemoglobin [Entitic mass] by Automated count 24.6 pg 27.0 - 34.0 L [facility] Erythrocyte mean corpuscular hemoglobin concentration [Mass/volume] by Automated count 30.0 g/dL 31.0 - 36.0 L [facility] Erythrocyte distribution width [Ratio] by Automated count 15.9 % 11.5 - 14.8 H [facility] Platelets [#/volume] in Blood by Automated count 276 10^3/uL 150 - 45 0 [facility] Platelet mean volume [Entitic volume] in Blood by Automated count 9.6 fL 7.4 - 10.4 [facility] ID Date Data Source [id number] 06/28/2020 11:22:00 AM EST [facility] Name Value Range Interpretation Code Description Data Sanjuana rce(s) Supporting Document(s) CULTURE URINE [facility] _CULTURE URINE_$$[id number]$$[id number]$$[id number]$$[id number]$$[id number]$$[id number]$$293201$$[id number]$$[id number]$$ 293169$$371754$$616026$$252928$$790754$$695662$$117534$$294947$$635183$$175822$$ 928885$$915036$$710016$$623151$$823018$$557249$$[id number]$$[id number] -- Continued on next page --Patient: JAROD Ross Order: [id number] Page 2Culture: CULTURE URINE Status: Final ==== -- Continued on next page --Patient: JAROD Ross Order: [id number] Page 2Culture: CULTURE URINE Status: Prelim =====$$[id number] DATE/TIME: 06/28/2020 11:05Culture: CULTURE URINE Status: FinalUrine Culture,Comprehensive: P1No growth in 36 - 48 hours. Previous result entered on 06/27/2020 03:35 ET Specimen has been received and testing has been initiated.P1 Test performed by: [facility] #: [id number] [address] [place] [address] [phone] [facility] [id number] Director : Abilio Ratliff MD NPI #:Photography Editor : 06/27/20.0701.XMT.SENT REF 06/28/20.1122.XMT.SENT REF 06/28/20.1122. .to [place] via fax ID Date Data Source [id number] 06/25/2020 09:10:00 AM EST [facility] Name Value Range Interpretation Code Description Data Sanjuana rce(s) Supporting Document(s) URINALYSIS [facility] URINALYSIS SOURCE R [facility] COLOR yellow NORMAL: Yellow [facility] CLARITY clear NORMAL: Clear [facility] Specific gravity of Urine by Test strip 1.020 1.001 - 1.030 [facility] pH 5 5 - 9 [facility] Glucose [Mass/volume] in Urine by Test strip NORM NORMAL: Negat dung [facility] Bilirubin.total [Presence] in Urine by Test strip NEG NORMAL: Negative [facility] Ketones [Presence] in Urine by Test strip NEG NORMAL: Negative [facility] Protein [Mass/volume] in Urine by Test strip 100 NORMAL: Negat dung A [facility] Nitrite [Presence] in Urine by Test strip NEG NORMAL: Negative [facility] BLOOD NEG NORMAL: Negative [facility] Leukocyte esterase [Presence] in Urine by Test strip NEG SUSAN L: Negative [facility] Urobilinogen [Mass/volume] in Urine by Test strip NOR less ben n 1.0 mg/dL [facility] MICROSCOPIC See Below [facility] ital WBC 1 - 3 NORMAL: NONE SEEN [facility] Erythrocytes [#/volume] in Urine by Test strip 1 - 3 NORMAL: NON E SEEN [facility] EPITHELIAL FEW NORMAL: NONE SEEN [facility] Bacteria [Presence] in Urine sediment by Light microscopy Tr ilia NORMAL: NONE SEEN [facility] ID Date Data Source [id number] 06/24/2020 08:31:00 PM EST [facility] Name Value Range Interpretation Code Description Data Sanjuana rce(s) Supporting Document(s) COMPREHENSIVE METABOLIC PANEL [facility] COMPREHENSIVE METABOLIC PANEL Sodium [Moles/volume] in Serum or Plasma 137 mEq/L 134 - 153 [facility] Potassium [Moles/volume] in Serum or Plasma 4.9 mEq/L 3.6 - 5.0 [facility] Chloride [Moles/volume] in Serum or Plasma 97 mEq/L 98 - 107 L [facility] Carbon dioxide, total [Moles/volume] in Serum or Plasma 32 MEQ/L 22 - 30 H [facility] Glucose [Mass/volume] in Serum or Plasma 91 MG/DL 65 - 110 [facility] BUN 35 MG/DL 7 - [address] [facility] Creatinine [Mass/volume] in Serum or Plasma 1.0 MG/DL 0.7 - 1.5 [facility] BUN/CREAT 35 8 - [address] [facility] Protein [Mass/volume] in Serum or Plasma 6.4 G/DL 6.3 - 8.2 [facility] Albumin [Mass/volume] in Serum or Plasma 3.8 G/DL 3.9 - 5.0 L [facility] Globulin [Mass/volume] in Serum by calculation 2.6 GM/DL 2.4 - 3.2 [facility] A/G RATIO 1.5 0.8 - 2.0 [facility] al Calcium [Mass/volume] in Serum or Plasma 8.7 MG/DL 8.4 - 10.2 [facility] Bilirubin.total [Mass/volume] in Serum or Plasma <0.7 MG/DL 0.2 - 1.3 [facility] Alkaline phosphatase [Enzymatic activity/volume] in Serum or Plasma 77 U/L 38 - 126 [facility] Aspartate aminotransferase [Enzymatic activity/volume] in Serum or Plasma 15 U/L 5 - 40 [facility] Alanine aminotransferase [Enzymatic activity/volume] in Seru m or Plasma 14 U/L 7 - 56 [facility] Anion gap 3 in Serum or Plasma 8.0 mmol/L 8.0 - 16.0 [facility]GE [address] [facility] GFR >60 mL/min [facility] ital AFR AMER GFR >60 mL/min [facility] Male GFR In terprentation 20-49 [...] >32 mL/min Normal ID Date Data Source [id number] 06/24/2020 08:12:00 PM EST [facility] Name Value Range Interpretation Code Description Data Sanjuana rce(s) Supporting Document(s) CBC NO DIFF [facility] ital COMPLETE BLOOD COUNT Leukocytes [#/volume] in Blood by Automated count 11.5 10^3/uL 4.2 - 11.0 H [facility] Erythrocytes [#/volume] in Blood by Automated count 4.77 10^6/uL 4. 50 - 6.30 [facility] Hemoglobin [Mass/volume] in Blood 12.2 g/dL 14.0 - 16.0 L [facility] Hematocrit [Volume Fraction] of Blood by Automated count 40.3 % 4 1.0 - 51.0 L [facility] Erythrocyte mean corpuscular volume [Entitic volume] by Auto mated count 84.5 fL 80.0 - 94.0 [facility] Erythrocyte mean corpuscular hemoglobin [Entitic mass] by Automated count 25.6 pg 27.0 - 34.0 L [facility] Erythrocyte mean corpuscular hemoglobin concentration [Mass/volume] by Automated count 30.3 g/dL 31.0 - 36.0 L [facility] Erythrocyte distribution width [Ratio] by Automated count 15.9 % 11.5 - 14.8 H [facility] Platelets [#/volume] in Blood by Automated count 152 10^3/uL 150 - 45 0 [facility] Platelet mean volume [Entitic volume] in Blood by Automated count 11.0 fL 7.4 - 10.4 H [facility] ID Date Data Source [id number] 06/05/2020 04:16:00 PM EST [facility] Name Value Range Interpretation Code Description Data Sanjuana rce(s) Supporting Document(s) CVE PANEL [facility] al LIPID PANEL Cholesterol [Mass/volume] in Serum or Plasma 144 MG/DL 131 - 200 [facility] Deprecated Triglyceride [Mass/volume] in Serum or Plasma 170 MG/DL 3 5 - 160 H [facility] HDL 29 MG/DL 29 - 86 [facility] al Cholesterol in LDL [Mass/volume] in Serum or Plasma by Direc t assay 90 mg/dL 65 - 175 [facility] Cholesterol.total/Cholesterol in HDL [Mass Ratio] in Serum o r Plasma 5.0 3.4 - 4.9 H [facility] LDL/HDL 3.10 1.00 - 3.55 [facility] ital CVE RISK CHOL/HDL LDL/HDLMEN: 1/2 AVERAGE 3.43 1.00 AVERAGE 4.97 3.55 2X AVERAGE 9.55 6.25 3X AVERAGE 23.99 7.99WOMEN: 1/2 AVERAGE 3.27 1.47 AVERAGE 4.44 3.22 2X AVERAGE 7.05 5.03 3X AVERAGE 11.04 6.14 ID Date Data Source [id number] 06/04/2020 05:41:00 PM [facility] Name Value Range Interpretation Code Description Data Sanjuana rce(s) Supporting Document(s) Hemoglobin A1c/Hemoglobin.total in Blood 7.6 % 4.4 - 6.1 H [facility] {A1]{HB] ID Date Data Source [id number] 06/04/2020 10:18:00 AM [facility] Name Value Range Interpretation Code Description Data Sanjuana rce(s) Supporting Document(s) Magnesium [Mass/volume] in Serum or Plasma 1.6 MG/DL 1.7 - 2.2 L [facility] ID Date Data Source [id number] 06/04/2020 10:18:00 AM [facility] Name Value Range Interpretation Code Description Data Sanjuana rce(s) Supporting Document(s) COMPREHENSIVE METABOLIC PANEL [facility] COMPREHENSIVE METABOLIC PANEL Sodium [Moles/volume] in Serum or Plasma 138 mEq/L 134 - 153 [facility] Potassium [Moles/volume] in Serum or Plasma 4.6 mEq/L 3.6 - 5.0 [facility] Chloride [Moles/volume] in Serum or Plasma 98 mEq/L 98 - 107 [facility] Carbon dioxide, total [Moles/volume] in Serum or Plasma 33 MEQ/L 22 - 30 H [facility] Glucose [Mass/volume] in Serum or Plasma 114 MG/DL 65 - 110 H [facility] BUN 28 MG/DL 7 - [address] [facility] Creatinine [Mass/volume] in Serum or Plasma 1.0 MG/DL 0.7 - 1.5 [facility] BUN/CREAT 28 8 - [address] [facility] Protein [Mass/volume] in Serum or Plasma 6.0 G/DL 6.3 - 8.2 L [facility] Albumin [Mass/volume] in Serum or Plasma 3.3 G/DL 3.9 - 5.0 L [facility] Globulin [Mass/volume] in Serum by calculation 2.7 GM/DL 2.4 - 3.2 [facility] A/G RATIO 1.2 0.8 - 2.0 [facility] Calcium [Mass/volume] in Serum or Plasma 8.8 MG/DL 8.4 - 10.2 [facility] Bilirubin.total [Mass/volume] in Serum or Plasma <0.7 MG/DL 0.2 - 1.3 [facility] Alkaline phosphatase [Enzymatic activity/volume] in Serum or Plasma 69 U/L 38 - 126 [facility] Aspartate aminotransferase [Enzymatic activity/volume] in Serum or Plasma 10 U/L 5 - 40 [facility] Alanine aminotransferase [Enzymatic activity/volume] in Seru m or Plasma 11 U/L 7 - 56 [facility] Anion gap 3 in Serum or Plasma 7.0 mmol/L 8.0 - 16.0 L [facility] 65 [facility] NON-AA GFR >60 mL/min [facility] AFR AMER GFR >60 mL/min [facility] Male GFR In terprentation 20-49 [...] >32 mL/min Normal ID Date Data Source [id number] 06/04/2020 09:15:00 AM [facility] Name Value Range Interpretation Code Description Data Sanjuana rce(s) Supporting Document(s) Erythrocyte sedimentation rate by Westergren method 23 mm/hr 0 - 20 H [facility] SED RATE REENTER 23 [facility] ID Date Data Source [id number] 06/04/2020 09:14:00 AM [facility] Name Value Range Interpretation Code Description Data Sanjuana rce(s) Supporting Document(s) Thyroxine (T4) free index in Serum or Plasma by calculation 1.78 NG/DL 0.93 - 1.70 H [facility] ID Date Data Source [id number] 06/04/2020 08:50:00 AM [facility] Name Value Range Interpretation Code Description Data Sanjuana rce(s) Supporting Document(s) Thyrotropin [Units/volume] in Serum or Plasma by Detec tion limit <= 0.05 mIU/L 3.07 uIU/mL 0.47 - 5.01 [facility] ID Date Data Source [id number] 06/04/2020 08:48:00 AM [facility] Name Value Range Interpretation Code Description Data Sanjuana rce(s) Supporting Document(s) CBC NO DIFF [facility] COMPLETE BLOOD COUNT Leukocytes [#/volume] in Blood by Automated count 10.3 10^3/uL 4.2 - 11.0 [facility] Erythrocytes [#/volume] in Blood by Automated count 4.82 10^6/uL 4. 50 - 6.30 [facility] Hemoglobin [Mass/volume] in Blood 12.4 g/dL 14.0 - 16.0 L [facility] Hematocrit [Volume Fraction] of Blood by Automated count 40.1 % 4 1.0 - 51.0 L [facility] Erythrocyte mean corpuscular volume [Entitic volume] by Auto mated count 83.2 fL 80.0 - 94.0 [facility] Erythrocyte mean corpuscular hemoglobin [Entitic mass] by Automated count 25.7 pg 27.0 - 34.0 L [facility] Erythrocyte mean corpuscular hemoglobin concentration [Mass/volume] by Automated count 30.9 g/dL 31.0 - 36.0 L [facility] Erythrocyte distribution width [Ratio] by Automated count 15.5 % 11.5 - 14.8 H [facility] Platelets [#/volume] in Blood by Automated count 209 10^3/uL 150 - 45 0 [facility] Platelet mean volume [Entitic volume] in Blood by Automated count 9.5 fL 7.4 - 10.4 [facility] ID Date Data Source [id number] 05/31/2020 12:14:00 PM EST [facility] Name Value Range Interpretation Code Description Data Sanjuana rce(s) Supporting Document(s) CULTURE URINE [facility] spital _CULTURE URINE_$$[id number]$$[id number]$$124329$$479266$$430303$$298762$$473929$$821213$$894507$$ 858926$$052507$$448948$$696686$$918838$$858770$$749812$$165173$$004065$$644375$$ 857404$$627044$$185872$$837736$$814241$$942645$$480792$$531564 -- Continued on next page --Patient: JAROD Ross Order: [id number] Page 2Culture: CULTURE URINE Status: Final ==== -- Continued on next page --Patient: JAROD Ross Order: [id number] Page 2Culture: CULTURE URINE Status: Prelim =====$$[id number]$$[id number] DATE/TIME: 05/31/2020 12:05Culture: CULTURE URINE Status: FinalUrine Culture,Comprehensive: P1No growth in 36 - 48 hours. Previous result entered on 05/30/2020 06:17 ET No growth after 18-24 hours.P1 Test performed by: [facility] RAMÍREZ #: [id number] [address] [place] [address] [address] [id number] [facility] [id number] Director : Abilio Ratliff MD NPI #:Photography Editor : 05/30/20.0711.XMT.SENT REF 05/31/20.1214.XMT.SENT REF ID Date Data Source [id number] 05/28/2020 10:32:00 AM [facility] Name Value Range Interpretation Code Description Data Sanjuana rce(s) Supporting Document(s) URINALYSIS [facility] URINALYSIS SOURCE R [facility] COLOR yellow NORMAL: Yellow [facility] CLARITY clear NORMAL: Clear [facility] Specific gravity of Urine by Test strip 1.020 1.001 - 1.030 [facility] pH 5 5 - 9 [facility] Glucose [Mass/volume] in Urine by Test strip NORM NORMAL: Negat dung [facility] Bilirubin.total [Presence] in Urine by Test strip NEG NORMAL: Negative [facility] Ketones [Presence] in Urine by Test strip NEG NORMAL: Negative [facility] Protein [Mass/volume] in Urine by Test strip 100 NORMAL: Negat dung A [facility] Nitrite [Presence] in Urine by Test strip NEG NORMAL: Negative [facility] BLOOD NEG NORMAL: Negative [facility] Leukocyte esterase [Presence] in Urine by Test strip NEG SUSAN L: Negative [facility] Urobilinogen [Mass/volume] in Urine by Test strip NOR less ben n 1.0 mg/dL [facility] MICROSCOPIC See Below [facility] ital Erythrocytes [#/volume] in Urine by Test strip 1 - 3 NORMAL: NON E SEEN [facility] Mucus [Presence] in Urine sediment by Light microscopy 1+ NOR MAL: NONE SEEN [facility] Casts [#/area] in Urine sediment by Microscopy low power field See Be low [facility] Hyaline casts [#/area] in Urine sediment by Microscopy low p ower field 1-3 NORMAL: None Seen A [facility] ID Date Data Source [id number] 05/05/2020 01:23:00 PM EDT [facility] Name Value Range Interpretation Code Description Data Sanjuana rce(s) Supporting Document(s) CBC W/AUTOMATED DIFF [facility] CORRECTE D REPORT COMPLETE BLOOD COUNT Leukocytes [#/volume] in Blood by Automated count 10.2 10^3/uL 4.2 - 11.0 [facility] Erythrocytes [#/volume] in Blood by Automated count 4.64 10^6/uL 4. 50 - 6.30 [facility] Hemoglobin [Mass/volume] in Blood 12.3 g/dL 14.0 - 16.0 L [facility] Hematocrit [Volume Fraction] of Blood by Automated count 39.7 % 4 1.0 - 51.0 L [facility] Erythrocyte mean corpuscular volume [Entitic volume] by Auto mated count 85.6 fL 80.0 - 94.0 [facility] Erythrocyte mean corpuscular hemoglobin [Entitic mass] by Automated count 26.5 pg 27.0 - 34.0 L [facility] Erythrocyte mean corpuscular hemoglobin concentration [Mass/volume] by Automated count 31.0 g/dL 31.0 - 36.0 L [facility] Erythrocyte distribution width [Ratio] by Automated count 14.8 % 11.5 - 14.8 [facility] Platelets [#/volume] in Blood by Automated count 248 10^3/uL 150 - 45 0 [facility] Platelet mean volume [Entitic volume] in Blood by Automated count 9.9 fL 7.4 - 10.4 [facility] Neutrophils/100 leukocytes in Blood by Automated count 65.5 % 37. 0 - 80.0 [facility] Lymphocytes/100 leukocytes in Blood by Manual count 17.5 % 25.0 - 40.0 L [facility] Monocytes/100 leukocytes in Blood by Automated count 10.9 % 3.0 - 8.0 H [facility] Eosinophils/100 leukocytes in Blood by Automated count 4.9 % 0.0 - 7.0 [facility] Basophils/100 leukocytes in Blood by Automated count 0.7 % 0.0 - 2.0 [facility] %IG 0.5 % 0.0 - 0.[address] [facility] %NRBC 0.0 % 0.0 - 0.0 [facility] al Neutrophils [#/volume] in Blood by Automated count 6.57 10^3/uL 2.00 - 6.90 [facility] Lymphocytes [#/volume] in Blood by Automated count 1.76 10^3/uL 0.60 - 3.40 [facility] Monocytes [#/volume] in Blood by Automated count 1.09 10^3/uL 0.00 - 0.90 H [facility] Eosinophils [#/volume] in Blood by Automated count 0.49 10^3/uL 0.00 - 0.70 [facility] Basophils [#/volume] in Blood by Automated count 0.07 10^3/uL 0.00 - 0.20 [facility] #IG 0.05 10^3/uL 0.00 - 0.10 [facility] #NRBC 0.00 10^3/uL 0.00 - 0.00 [facility] MANUAL DIFF NOT INDICATED [facility] 467 Segmented neutrophils/100 leukocytes in Blood by Manual count 67 % 37 - 80 [facility] %LYMPH 23 % 25 - [address] [facility] %MONO 8 % 3 - 8 [facility] %EOS 2 % 0 - 7 [facility] RBC MORPH MORPH IS NORMAL [facility] FOLLOWING RESULTS REPORTED IN ERROR WB] WBC RB] RBC HG] HEMOGLOBIN MV] MCV MH] MCH CC] MCHC PL] PLATELETS MP] MPV { CORRECT MANUAL DIFF { CORRECT ID Date Data Source [id number] 05/05/2020 01:26:00 PM EDT [facility] Name Value Range Interpretation Code Description Data Sanjuana rce(s) Supporting Document(s) CBC NO DIFF [facility] ital COMPLETE BLOOD COUNT Leukocytes [#/volume] in Blood by Automated count 10.2 10^3/uL 4.2 - 11.0 [facility] Erythrocytes [#/volume] in Blood by Automated count 4.64 10^6/uL 4. 50 - 6.30 [facility] Hemoglobin [Mass/volume] in Blood 12.3 g/dL 14.0 - 16.0 L [facility] Hematocrit [Volume Fraction] of Blood by Automated count 39.7 % 4 1.0 - 51.0 L [facility] Erythrocyte mean corpuscular volume [Entitic volume] by Auto mated count 85.6 fL 80.0 - 94.0 [facility] Erythrocyte mean corpuscular hemoglobin [Entitic mass] by Automated count 26.5 pg 27.0 - 34.0 L [facility] Erythrocyte mean corpuscular hemoglobin concentration [Mass/volume] by Automated count 31.0 g/dL 31.0 - 36.0 [facility] Erythrocyte distribution width [Ratio] by Automated count 14.8 % 11.5 - 14.8 [facility] Platelets [#/volume] in Blood by Automated count 248 10^3/uL 150 - 45 0 [facility] Platelet mean volume [Entitic volume] in Blood by Automated count 9.9 fL 7.4 - 10.4 [facility] ID Date Data Source [id number] 05/05/2020 09:01:00 AM EDT [facility] Name Value Range Interpretation Code Description Data Sanjuana rce(s) Supporting Document(s) Erythrocyte sedimentation rate by Westergren method 59 mm/hr 0 - 20 H [facility] SED RATE REENTER 59 [facility] ID Date Data Source [id number] 05/05/2020 08:45:00 AM EDT [facility] Name Value Range Interpretation Code Description Data Sanjuana rce(s) Supporting Document(s) COMPREHENSIVE METABOLIC PANEL [facility] COMPREHENSIVE METABOLIC PANEL Sodium [Moles/volume] in Serum or Plasma 140 mEq/L 134 - 153 [facility] Potassium [Moles/volume] in Serum or Plasma 4.8 mEq/L 3.6 - 5.0 [facility] Chloride [Moles/volume] in Serum or Plasma 100 mEq/L 98 - 107 [facility] Carbon dioxide, total [Moles/volume] in Serum or Plasma 32 MEQ/L 22 - 30 H [facility] Glucose [Mass/volume] in Serum or Plasma 99 MG/DL 65 - 110 [facility] BUN 24 MG/DL 7 - [address] [facility] Creatinine [Mass/volume] in Serum or Plasma 0.9 MG/DL 0.7 - 1.5 [facility] BUN/CREAT 27 8 - 27 [facility] al Protein [Mass/volume] in Serum or Plasma 6.7 G/DL 6.3 - 8.2 [facility] Albumin [Mass/volume] in Serum or Plasma 3.5 G/DL 3.9 - 5.0 L [facility] Globulin [Mass/volume] in Serum by calculation 3.2 GM/DL 2.4 - 3.2 [facility] A/G RATIO 1.1 0.8 - 2.0 [facility] Calcium [Mass/volume] in Serum or Plasma 9.2 MG/DL 8.4 - 10.2 [facility] Bilirubin.total [Mass/volume] in Serum or Plasma <0.7 MG/DL 0.2 - 1.3 [facility] Alkaline phosphatase [Enzymatic activity/volume] in Serum or Plasma 72 U/L 38 - 126 [facility] Aspartate aminotransferase [Enzymatic activity/volume] in Serum or Plasma 14 U/L 5 - 40 [facility] Alanine aminotransferase [Enzymatic activity/volume] in Seru m or Plasma 13 U/L 7 - 56 [facility] Anion gap 3 in Serum or Plasma 8.0 mmol/L 8.0 - 16.0 [facility] AGE 64 yrs [facility] al NON-AA GFR >60 mL/min [facility] ital AFR AMER GFR >60 mL/min [facility] Male GFR In terprentation 20-49 [...] >32 mL/min Normal ID Date Data Source [id number] 04/09/2020 09:32:00 AM EDT [facility] Name Value Range Interpretation Code Description Data Sanjuana rce(s) Supporting Document(s) Erythrocyte sedimentation rate by Westergren method 12 mm/hr 0 - 20 [facility] SED RATE REENTER 12 [facility] ID Date Data Source [id number] 04/09/2020 09:03:00 AM EDT [facility] Name Value Range Interpretation Code Description Data Sanjuana rce(s) Supporting Document(s) C reactive protein [Mass/volume] in Serum or Plasma by High sensitivity method 68.20 MG/L 1.00 - 3.00 H [facility] CDC/S HS-CRP CUT-OFF: RELATIVE RISK: <1.0 mg/L Low 1.0 - 3.0 mg/L Average >3.0 mg/L High Optimally, the average of HS-CRP results repeated two weeks apart should be used for risk assessment. ID Date Data Source [id number] 04/09/2020 08:41:00 AM EDT [facility] Name Value Range Interpretation Code Description Data Sanjuana rce(s) Supporting Document(s) BNP 370 PG/ML 0 - 125 H [facility] al ID Date Data Source [id number] 04/09/2020 08:40:00 AM EDT [facility] Name Value Range Interpretation Code Description Data Sanjuana rce(s) Supporting Document(s) COMPREHENSIVE METABOLIC PANEL [facility] COMPREHENSIVE METABOLIC PANEL Sodium [Moles/volume] in Serum or Plasma 138 mEq/L 134 - 153 [facility] Potassium [Moles/volume] in Serum or Plasma 4.4 mEq/L 3.6 - 5.0 [facility] Chloride [Moles/volume] in Serum or Plasma 98 mEq/L 98 - 107 [facility] Carbon dioxide, total [Moles/volume] in Serum or Plasma 27 MEQ/L 22 - 30 [facility] Glucose [Mass/volume] in Serum or Plasma 200 MG/DL 65 - 110 H [facility] BUN 21 MG/DL 7 - 21 [facility] Creatinine [Mass/volume] in Serum or Plasma 0.8 MG/DL 0.7 - 1.5 [facility] BUN/CREAT 26 8 - 27 [facility] Protein [Mass/volume] in Serum or Plasma 7.3 G/DL 6.3 - 8.2 [facility] Albumin [Mass/volume] in Serum or Plasma 3.4 G/DL 3.9 - 5.0 L [facility] Globulin [Mass/volume] in Serum by calculation 3.9 GM/DL 2.4 - 3.2 H [facility] A/G RATIO 0.9 0.8 - 2.0 [facility] al Calcium [Mass/volume] in Serum or Plasma 9.2 MG/DL 8.4 - 10.2 [facility] Bilirubin.total [Mass/volume] in Serum or Plasma <0.7 MG/DL 0.2 - 1.3 [facility] Alkaline phosphatase [Enzymatic activity/volume] in Serum or Plasma 74 U/L 38 - 126 [facility] Aspartate aminotransferase [Enzymatic activity/volume] in Serum or Plasma 13 U/L 5 - 40 [facility] Alanine aminotransferase [Enzymatic activity/volume] in Seru m or Plasma 13 U/L 7 - 56 [facility] Anion gap 3 in Serum or Plasma 13.0 mmol/L 8.0 - 16.0 [facility] AGE 64 yrs [facility] al NON-AA GFR >60 mL/min [facility] ital AFR AMER GFR >60 mL/min [facility] Male GFR In terprentation 20-49 [...] >32 mL/min Normal ID Date Data Source [id number] 04/09/2020 07:59:00 AM EDT [facility] Name Value Range Interpretation Code Description Data Sanjuana rce(s) Supporting Document(s) CBC NO DIFF [facility] ital COMPLETE BLOOD COUNT Leukocytes [#/volume] in Blood by Automated count 12.9 10^3/uL 4.2 - 11.0 H [facility] Erythrocytes [#/volume] in Blood by Automated count 5.56 10^6/uL 4. 50 - 6.30 [facility] Hemoglobin [Mass/volume] in Blood 14.7 g/dL 14.0 - 16.0 [facility] Hematocrit [Volume Fraction] of Blood by Automated count 46.2 % 4 1.0 - 51.0 [facility] Erythrocyte mean corpuscular volume [Entitic volume] by Auto mated count 83.1 fL 80.0 - 94.0 [facility] Erythrocyte mean corpuscular hemoglobin [Entitic mass] by Automated count 26.4 pg 27.0 - 34.0 L [facility] Erythrocyte mean corpuscular hemoglobin concentration [Mass/volume] by Automated count 31.8 g/dL 31.0 - 36.0 [facility] Erythrocyte distribution width [Ratio] by Automated count 14.5 % 11.5 - 14.8 [facility] Platelets [#/volume] in Blood by Automated count 363 10^3/uL 150 - 45 0 [facility] Platelet mean volume [Entitic volume] in Blood by Automated count 9.3 fL 7.4 - 10.4 [facility] ID Date Data Source [id number] 04/02/2020 01:33:00 PM EDT [facility] [address] [place] [address] PHONE: [phone] FAX: [phone] Name .................. : JAROD Ross Acct Number.................. : [id number] ROOM. ................. : TR-03 Number ................... : [id number] Stay type ............. : E/R Discharge Date......... ... : 04/01/20 Admit Date ......... : 04/01/20 Admit Phys .................... : MIRIAM ACUNA Date of ....... : 1955 Family Phys ................... : KUNNSAKSHIURA Phone .................. : [phone] Age ................................ : 64 Film# .................. .:[id number] Sex ................................. : M Unsigned transcriptions are preliminary reports and do not represent a medical or legal document CT LOWER EXT RT W/O CONT [id number] COMPLETE:04/01/20 15:56 RLB [id number] Reason(s): recent foot surgery, r/o osteomyelitis CT [...] By ILYA BAUMAN MD , 04/02/20 13:33, [facility] Transcribe Initials: LEI , Transcribe Date: 04/02/20 00:51, Dictation Date: Copy for: EMERGENCY DEPT via [facility] [place] Copy for: 710 MED REC DISCHARGED Page 1 of 1 Name Value Range Interpretation Code Description Data Sanjuana rce(s) Supporting Document(s) ID Date Data Source [id number] 04/02/2020 01:21:00 PM EDT [facility] [address] [place] [address] PHONE: [phone] FAX: [phone] Name .................. : JAROD Ross Acct Number.................. : [id number] ROOM. ................. : TR-03 Number ................... : [id number] Stay type ............. : E/R Discharge Date......... ... : Admit Date ......... : 04/01/20 Admit Phys .................... : MIRIAM ACUNA Date of ....... : 1955 Family Phys ................... : ADY Phone .................. : [phone] Age ................................ : 64 Film# .................. .:[id number] Sex ................................. : M Unsigned transcriptions are preliminary reports and do not represent a medical or legal document CHEST PORTABLE [id number] COMPLETE:04/01/20 11:31 [id number] Reason(s): Shortness of Breath PORTABLE CHEST X-RAY: [...] By Tiffany Bergeron MD , 04/02/20 13:21, [facility] Transcribe Initials: DZ , Transcribe Date: 04/01/20 17:31, Dictation Date: Copy for: EMERGENCY DEPT via modem Copy for: 710 MED REC DISCHARGED Page 1 of 1 Name Value Range Interpretation Code Description Data Sanjuana rce(s) Supporting Document(s) ID Date Data Source [id number] 04/02/2020 01:47:00 [place] [address] RESPIRATORY CARE REPORT ==== ---------NAME------- NUMBER SEX AGE ADMIT DISC. XRAY# F/C CARLTON Ross [id number] M 64 04/01/20 04/01/20 [id number] E/R DATE OF : 1955 M/R# [id number] #: [id number] TR-03 LOCATION: EMERGENCY DEPT FORMERLY [facility] [address] COMPLE TE:04/01/20 13:02 [facility] [address] PHYSICIAN: MIRIAM ACUNA Name Value Range Interpretation Code Description Data Sanjuana rce(s) Supporting Document(s) ID Date Data Source [id number] 04/01/2020 11:15:00 AM EDT [facility] 1 OrderSheet [facility] Emergency Department [address] [place] [address] Phone #: ext- [phone] 04/01/2020 11:11 [id number] Sex: M : 1955 Age: 64yWEIGHT:70.3 kg (S) HEIGHT:71 inches (S) BMI:21.6ALLERGIES: TAPECHIEF COMPLAINT: decreased mental statusDIAGNOSIS: Systemic infection, Urinary tract infectious disease, Renal impairment, Opioid dependence,PneumoniaLAB ORDERSOrder Description Priority Entered Acknowledged InitialedCBC w Diff STAT 11:04/01/2020 11:34 Rigo Cramer RN, M.D.;CMP STAT 11:04/01/2020 11:34 Rigo Cramer RN, M.D.;Lipase STAT 11:04/01/2020 11:34 Rigo Cramer RN, M.D.;PT/PTT STAT 11:04/01/2020 11:34 Rigo Cramer RN, M.D.;Troponin-T STAT 11:04/01/2020 11:34 Rigo Cramer RN, M.D.;Lactic Acid STAT 11:04/01/2020 11:34 Rigo Cramer RN, M.D.;Blood Culture STAT 11:04/01/2020 11:34 [id number] X2 (Rigo Sewell RN11:31 04/01/2020) Geraldine;Blood Culture STAT 11:04/01/2020 11:34 [id number] X2 (Rigo Sewell RN11:41 04/01/2020) Geraldine;BNP STAT 11:32 04/01/2020 11:34 Rigo Cramer RN, M.D.;Urinalysis (Cath STAT 11:33 04/01/2020 12:18 Nicole,SpecRigo Allen R.N., M.D.; 2 OrderSheet [facility] Emergency Department [address] [place] [address] Phone #: ext- [phone] 04/01/2020 11:11 [facility]: [id number] Sex: M : 1955 Age: 64yCulture, Urine [...] 04/01/2020 Ack'd: 14:20 14:25 DorisW/O CONT Rigo eG Amber Hagenston RN(Oxygen?(No)) Geraldine; R.N.(IV?(Yes)) NOTES: CT [...] d/c iv 12:37 04/01/2020 Cancelled: Other 12:52 Krystapedro Griffithfluids, saline lock) Rigo Ge RN 3 OrderSheet [facility] Emergency Department [address] [place] [address] Phone #: ext- [phone] 04/01/2020 11:11 Patient: DIANA OLIVERA Sex: M : 1954 Age: 64y M.D.;Narcan 0.4 mg IV X 12:46 04/01/2020 12:54 Doris1 dose: 0.4 mg Rigo Ge RN(NOW x1) Geraldine;NS IV : 150 mL/hr 13:07 04/01/2020 Ack'd: 13:16 13:24 Cyn Cramer Amber Hagenston RN M.D.; R.N.GENERAL ORDERSOrder Description Priority Entered Acknowledged InitialedBlood Pressure 11:31 04/01/2020 11:34 DorisMonitor Rigo Ge RN, M.D.;Radiological Equipment Specialist 11:31 04/01/2020 11:32 Malinda(continuous) Rigo Ge it desktop support technicianDudley Solis M.D.; [id number] 11:31 04/01/2020 11:32 Malinda Rigo Ge it desktop support technicianDudley Solis M.D.; [email or web address] 11:31 04/01/2020 11:34 Rigo Cramer RN, M.D.;Obtain Old EKG 11:04/01/2020 11:34 Rigo Cramer RN, M.D.;Obtain Old Records 11:04/01/2020 11:34 Rigo Cramer RN, M.D.;Oxygen titrate to 11:04/01/2020 11:34 Krysta92% Rigo Ge RN, M.D.;Pulse oximeter 11:04/01/2020 11:34 Krysta(Continuous) Rigo Ge RN, M.D.;Saline Lock 11:04/01/2020 11:34 Rigo Cramer RN, M.D.;Vitals 11:04/01/2020 11:34 Rigo Cramer RN, M.D.;Straight Cath 11:33 04/01/2020 12:18 Miriam Nicole Riccardo Amber R.N. 4 OrderSheet [facility] Emergency Department [address] [place] [address] Phone #: ext- [phone] 04/01/2020 11:11 Patient: [...] rce(s) Supporting Document(s) ID Date Data Source [id number] 04/01/2020 11:15:00 AM EDT [facility] 1 Medication Reconciliation Report [facility] Emergency Department [address] [place] [address] Phone #: ext- [phone] 04/01/2020 11:11 Patient: [...] daily, at bedtime 2 Medication Reconciliation Report [facility] Emergency Department [address] [place] [address] Phone #: ext- [phone] 04/01/2020 11:11 Patient: [...] rce(s) Supporting Document(s) ID Date Data Source [id number] 04/01/2020 11:15:00 AM EDT [facility] 1 Medication Administration Record [facility] Emergency Department [address] [place] [address] Phone #: ext- [phone] 04/01/2020 11:11 Patient: DIANA OLIVERA Sex: M : 1955 Age: 64yWeight: 70.3 kgHeight/Length: 71 inBMI: 21.6ALLERGIES: TAPE Date/Time Medication Administered Medication OrderedStart IV NS W/ BOLUS NS IV 500 mL Bolus: : Bolus 49004:40 04/01/2020 Dose: IV Fluids mL, then 125 mL/hr (X1)Krysta Griffith RN Rate: 125 mL/hr over 4 hour(s)---- Bolus: 500 mL over 30 minute(s)Stop Dispensed: 1000 mL bag12:40 04/01/2020 Site: #1 right ACDalbertina Griffith RNGiven NARCAN [IVP] (NALOXONE HCL) Narcan [...] IV : 150 mL/hr13:24 04/01/2020 Dose: IV FluidsDocarmela Griffith RN Rate: 150 mL/hr over 4 hour(s)---- Dispensed: 1000 mL bagContinued Upon Transfer Site: #1 right AC17:10 04/01/2020Sonido Nicole R.N. Name Value Range Interpretation Code Description Data Sanjuana rce(s) Supporting Document(s) ID Date Data Source [id number] 04/01/2020 11:15:00 AM EDT [facility] 1 General Instructions [facility] Emergency Department [address] [place] [address] Phone #: ext- [phone] 04/01/2020 11:11 Patient: DIANA OLIVERA Sex: M [...] rce(s) Supporting Document(s) ID Date Data Source [id number] 04/01/2020 11:15:00 AM EDT [facility] 1 Clinical Report - Nurses [facility] Emergency Department [address] [place] [address] Phone #: ext- [phone] 04/01/2020 11:11 Patient: DIANA OLIVERA Sex: M : 1955 Age: 64yTRIAGEArrived by EMS. Historian: EMS.Acuity: LEVEL 3.Chief Complaint: (LETHARGIC, MEDICATION OVERDOSE).This started today. ( Per EMS, pt was wearing 100 mcg fentanyl patch and was reported to be quitelethargic, facility removed the patch and administered 0.4 mg narcan, pt more responsive).EMS Treatment OPTICIAN APPRENTICE DISPENSING:EMS treatment verbally communicated and see EMS report. [...] tablets, daily. 2 Clinical Report - Nurses [facility] Emergency Department [address] [place] [address] Phone #: ext- [phone] 04/01/2020 11:11 Patient: [...] Griffith RN. 3 Clinical Report - Nurses [facility] Emergency Department [address] [place] [address] Phone #: ext- [phone] 04/01/2020 11:11 Patient: DIANA OLIVERA Sex: M [...] (FULL CODE). --13:52 04/01/20 Krysta Griffith RN.PHYSICAL LENCNBRITE06:25 04/01/20. To room via stretcher.GENERAL / NEURO / PSYCH: (lethargic). He is awake. The patient is disoriented. 4 Clinical Report - Nurses [facility] Emergency Department [address] [place] [address] Phone #: ext- [phone] 04/01/2020 11:11 [id number] Sex: M : 1955 Age: 64y HEENT: [...] arm and left foot. --11:33 04/01/20 Krysta Hagenston, RN EXTREMITIES: ( External fixation rods present right foot, dressing left lower leg removed, yellow drainage with small amount blood on Telfa, wound reddened). --14:11 04/01/20 Krysta Griffith RN.NURSING PROGRESS NOTES11:12 04/01/20. school bus monitor, NIBP monitor and pulse oximeter placed on patient; radiation monitor-Lead II; monitor alarms on. Head of bed [...] Griffith RN 5 Clinical Report - Nurses [facility] Emergency Department [address] [place] [address] Phone #: ext- [phone] 04/01/2020 11:11 Patient: DIANA OLIVERA Sex: M [...] --12:56 04/01/20 6 Clinical Report - Nurses [facility] Emergency Department [address] [place] [address] Phone #: ext- [phone] 04/01/2020 11:11 Patient: DIANA OLIVERA Sex: M [...] on non-rebreather. Pain levelnow: 0/10. --13:07 04/01/20 Krysta Griffith RN12:40 04/01/20. ( BP dropping, patient [...] Patient more alert, thought he was in [facility], told him he was at [facility]). --13:27 04/01/20 Krysta Griffith RN13:31 04/01/20. BP: 95/57. MAP: 69. HR: 92. RR: 22. O2 saturation: 91% on nasal cannula at 2liters/minute. Pain level now: 0/10. --13:31 04/01/20 Krysta Griffith RN 7 Clinical Report - Nurses [facility] Emergency Department [address] [place] [address] Phone #: ext- [phone] 04/01/2020 11:11 Patient: DIANA OLIVERA Sex: M [...] Krysta Griffith RN15:10 04/01/20. Patient transported to [place] by stretcher with nurse and radiologic technology instructor. --15:18 04/01/20Krysta Griffith RNOxygen administered by nasal cannula at 3 liters. school bus monitor, NIBP monitor and pulse oximeterplaced on [...] Nicole R.N. 8 Clinical Report - Nurses [facility] Emergency Department [address] [place] [address] Phone #: [phone] wdm- [phone] 04/01/2020 11:11 Patient: DIANA OLIVERA Sex: M [...] Report was acknowledged and care was transferred. ([facility] ICU). --17:36 04/01/20 Sonido Nicole R.N. Departure time: late entry - 17:10 04/01/2020. Condition at departure: improved. Transferred to [facility]. Visit overview, summary of care (CCDA), Emtala forms and Face Sheet provided to EMS and transfer facility via paper and fax. Transported via stretcher by marble machine tender and EMS with monitor, IV, O2 and [...] rce(s) Supporting Document(s) ID Date Data Source [id number] 04/01/2020 11:15:00 AM EDT [facility] 1 Clinical Report - Physicians/Mid Levels [facility] Emergency Department [address] [place] [address] Phone #: ext- [phone] 04/01/2020 11:11 Patient: DIANA OLIVERA Sex: M : 1955 Age: 64y Time Seen: 11:17 04/01/2020; initial patient contact. Arrived- By ambulance. Historian- [facility] nurse and records. Disposition decision: 13:11 04/01/2020.HISTORY OF PRESENT ILLNESS Chief Complaint: DECREASED MENTAL STATUS. The patient is described as having decreased responsiveness. This started just prior to arrival today and is now gone. It was gradual in onset and has been constant. retirement resident. No history of chronic dementia. No change in diabetic routine or alcohol recently. The patient has had weakness. No numbness or recent fall. He has had difficulty walking. Usually is alert and oriented X3. (Pt had recent past endocarditis at [facility]; pt on Fentanyl 200 mcg patch and oxycodone daily; pt had low BP and pinpoint pupils OPTICIAN APPRENTICE DISPENSING, given Narcan 0.4 mg sq w some [...] Hypertension. 2 Clinical Report - Physicians/Mid Levels [facility] Emergency Department [address] [place] [address] Phone #: ext- [phone] 04/01/2020 11:11 Patient: [...] use or drug use. Resides in a [facility].ADDITIONAL NOTESThe nursing notes have been reviewed with agreement regarding the chief complaint, HPI, ROS, PMH andpatient medications and allergies.PHYSICAL EXAMVital Signs: 04/01/2020 11:59 BP: 108/90. MAP: 96. HR: 105. RR: 23. O2 saturation: 99% on 3 Clinical Report - Physicians/Mid Levels [facility] Emergency Department [address] [place] [address] Phone #: ext- [phone] 04/01/2020 11:11 Patient: DIANA OLIVERA Sex: M : 1955 Age: 64y non-rebreather at 15 liters/minute. Pain level now: 0/10. 04/01/2020 11:20 BP: 98/59. MAP: 72. 04/01/2020 11:12 HR: 86. RR: 24. O2 saturation: 93% on room air. Temp: 99.5 F. Pain level now: 09/23. Have been reviewed. Oxygen saturation low. Appearance: [...] RT W/O CONT: (ILEANA: 04/01/2020 14:15) ( [facility] 04/01/2020 15:56) In Progress CT LOWER EXT RT W/O CONT Reason(s): recent foot surgery, r/o osteomyelitis TRANSPORTATION: S IV? IV?(Yes) O2? Oxygen?(No) Ro CMTS: CT right foot, W/O ABG: (ILEANA: 04/01/2020 13:50) ( [facility] 04/01/2020 14:04) Final results Test Result Flag [...] 98.0) 4 Clinical Report - Physicians/Mid Levels [facility] Emergency Department [address] [place] [address] Phone #: ext- [phone] 04/01/2020 11:11 [id number] Sex: M : 1955 Age: 64yUrinalysis: (ILEANA: 04/01/2020 12:05) ( [facility] 04/01/2020 13:02) Final results Test Result Flag [...] (NORMAL: NONE AMORPH SED 1+ (NORMAL: NONEBNP: (ILEANA: 04/01/2020 11:20) ( [facility] 04/01/2020 12:07) Final results Test Result Flag Units (Reference) BNP 302 H PG/ML (0 - 125)CBC w Diff: (ILEANA: 04/01/2020 11:20) ( [facility] 04/01/2020 13:03) Final results Test Result Flag [...] 0.10) 5 Clinical Report - Physicians/Mid Levels [facility] Emergency Department [address] [place] [address] Phone #: xos- [phone] 04/01/2020 11:11 Patient: DIANA OLIVERA Sex: M [...] Male GFR Interprentation 20-49 yrs >60 mL/min Elrhjy17-28 yrs >56 mL/min Normal 60-69 yrs >49 mL/min Normal 70-79yrs>42 mL/min Normal 80 and above >35 mL/min Normal Female GFRInterpretation 20-39 yrs >60 mL/min Normal 40-49 yrs >58 mL/minNormal 50-59 yrs >51 mL/min Normal 60-69 yrs >45 mL/min Fyvwom08-18 yrs >39 mL/min Normal 80 and above >32 mL/min NormalLipase: (ILEANA: 04/01/2020 11:20) ( MsgRcvd 04/01/2020 12:09) Final results Test Result Flag Units (Reference) LIPASE 12 L U/L (13 - 60)PT/PTT: (ILEANA: 04/01/2020 11:20) ( [facility] 04/01/2020 12:01) Final results Test Result Flag Units (Reference) PROTIME 13.3 SECONDS (11.0 - 15.5) INR 1.00 (0.93 - 1.23) PTT 33.7 SECONDS (24.8 - 36.7) \\BLDo\\INR INTERPRETATION\\BLDx\\ Therapeutic range for Coumadin andrelated oral anticoagulants. -International Normalized Ratio (INR): 2.0 - 3.0 for VenousThrombosis, Pulmonary Embolus, Tissue heart valves, Acute NM Atrial Fibrillation, Valvular heart diseaseand recurrent Systemic Embolism. -International Normalized Ratio (INR): 2.5 - 3.5 forMechanical Prosthetic valve.Troponin-T: (ILEANA: 04/01/2020 11:20) ( [facility] 04/01/2020 12:06) Final results 6 Clinical Report - Physicians/Mid Levels [facility] Emergency Department [address] [place] [address] Phone #: ext- [phone] 04/01/2020 11:11 Patient: DIANA OLIVERA Sex: M : 1955 Age: 64y Test Result Flag Units (Reference) TROPONIN T 0.02 NG/ML (0.00 - 0.10) TROPONIN T0.1 ng/ml Recommended as the clinical threshold value forTroponin T. Lactic Acid: (ILEANA: 04/01/2020 11:20) ( [facility] 04/01/2020 11:50) Final results Test Result Flag [...] and reviewed w hospitalist, who will call [facility] for possible transfer, since we have no ortho and they did surgery to foot; pt much more alert, doing markedly better 16:13 04/01/20. Wendi Cali, DARION hospitalist, called [facility] and spoke to Dr. Parson, [...] to transfer explained to patient. Transferred to [place] [id number] Clinical Report - Physicians/Mid Levels [facility] Emergency Department [address] [place] [address] Phone #: ext- [phone] 04/01/2020 11:11 Patient: [...] rce(s) Supporting Document(s) ID Date Data Source [id number] 04/01/2020 11:15:00 AM EDT [facility] Addenda for DIANA OLIVERA VisitID: [id number] Date: 13:23JAYLON CUNNINGHAM MADE AWARE OF MED REC REQUEST(Electronically signed by Prem Sam - 04/01/2020 13:23) Name Value Range Interpretation Code Description Data Sanjuana rce(s) Supporting Document(s) ID Date Data Source [id number] 04/01/2020 02:02:00 PM EDT [facility] Name Value Range Interpretation Code Description Data Sanjuana rce(s) Supporting Document(s) CHRISTIANA TEST POSITIVE A [facility] FiO2 3LPM [facility] SITE RADIAL LT [facility] pH of Arterial blood 7.34 7.34 - 7.44 [facility] Carbon dioxide [Partial pressure] in Blood 47.7 mm/HG 35.0 - 45.0 H [facility] Oxygen [Partial pressure] in Blood 57.2 mm/HG 75.0 - 100 L [facility] Bicarbonate [Moles/volume] in Blood 25.2 meq/L 22.0 - 26.0 [facility] TCO2 26.7 meq/L 23.0 - 27.0 [facility] Base excess in Blood by calculation -0.9 -2.0 - 2.0 [facility] O2 SAT 87.4 % 95.0 - 98.[address] [facility] ital ID Date Data Source [id number] 04/06/2020 06:07:00 PM EDT [facility] Name Value Range Interpretation Code Description Data Sanjuana rce(s) Supporting Document(s) Bacteria identified in Blood by Culture [facility] NO GROWTH AFTER 5 DAYS ID Date Data Source [id number] 04/13/2020 09:50:00 AM EDT [facility] Name Value Range Interpretation Code Description Data Sanjuana rce(s) Supporting Document(s) CULTURE BLOOD [facility] _CULTURE BLOOD_ [place] [address] CLIA# [id number] SEE SCANNED REPORT{ PRELIM ID Date Data Source [id number] 04/01/2020 12:59:00 PM EDT [facility] Name Value Range Interpretation Code Description Data Sanjuana rce(s) Supporting Document(s) [facility] S[facility] R [facility] COL[facility] yellow NORMAL: Yellow [facility] CLARITY hazy NORMAL: Clear [facility] Specific gravity of Urine by Test strip 1.025 1.001 - 1.030 [facility] pH 5 5 - 9 [facility] al Glucose [Mass/volume] in Urine by Test strip NORM NORMAL: Negat dung [facility] Bilirubin.total [Presence] in Urine by Test strip NEG NORMAL: Negative [facility] Ketones [Presence] in Urine by Test strip 5 NORMAL: Negative A [facility] Protein [Mass/volume] in Urine by Test strip 100 NORMAL: Negat dung A [facility] Nitrite [Presence] in Urine by Test strip NEG NORMAL: Negative [facility] BLOOD 25 NORMAL: Negative [facility] Leukocyte esterase [Presence] in Urine by Test strip 25 SUSAN L: Negative [facility] Urobilinogen [Mass/volume] in Urine by Test strip NOR less ben n 1.0 mg/dL [facility] MICROSCOPIC See Below [facility] ital WBC 1 - 3 NORMAL: NONE SEEN [facility] Erythrocytes [#/volume] in Urine by Test strip 1 - 3 NORMAL: NON E SEEN [facility] EPITHELIAL FEW NORMAL: NONE SEEN [facility] Bacteria [Presence] in Urine sediment by Light microscopy Tr ilia NORMAL: NONE SEEN [facility] Mucus [Presence] in Urine sediment by Light microscopy 2+ NOR MAL: NONE SEEN [facility] Amorphous sediment [Presence] in Urine sediment by Light luis a roscopy 1+ NORMAL: NONE SEEN [facility] ID Date Data Source [id number] 04/04/2020 05:34:00 PM EDT [facility] Name Value Range Interpretation Code Description Data Sanjuana rce(s) Supporting Document(s) CULTURE URINE [facility] spital _CULTURE URINE_$$[id number]$$[id number]$$[id number]$$[id number]$$[id number]$$408522$$277802$$101125$$861030$$ 943754$$891240$$480395$$420909$$880042$$815008$$158029$$236861$$536510$$408524$$ 365816$$216636$$239911$$477422$$657036$$323762$$478123$$[id number] -- Continued on next page --Patient: JAROD Ross Order: [id number] Page 2Culture: CULTURE URINE Status: Final ==== -- Continued on next page --Patient: JAROD Ross Order: [id number] Page 2Culture: CULTURE URINE Status: Prelim =====$$[id number]$$[id number] DATE/TIME: 04/04/2020 16:06Culture: CULTURE URINE Status: FinalUrine Culture,Comprehensive: P1No growth in 36 - 48 hours. Previous result entered on 04/03/2020 12:14 ET No growth after 18-24 hours.P1 Test performed by: [facility] [place] CLIA #: [id number] [address] [place] [address] [id number] [facility] [id number] Director : Abilio Ratliff MD NPI #:Lab Di anastacia : 04/03/20.1330.XMT.SENT REF 04/04/20.1734.XMT.SENT REF ID Date Data Source [id number] 04/13/2020 09:50:00 AM EDT [facility] Value Range Interpretation Code Description Data Sanjuana rce(s) Supporting Document(s) CULTURE BLOOD [facility] _CULTURE BLOOD_ TEST PERFORM ED AT [address] [address] CLIA# [id number] SEE SCANNED REPORT{ PRELIM ID Date Data Source [id number] 04/01/2020 12:09:00 PM EDT [facility] Value Range Interpretation Code Description Data Sanjuana rce(s) Supporting Document(s) Lipase [Enzymatic activity/volume] in Serum or Plasma 12 U/L 13 - 60 L [facility] ID Date Data Source [id number] 04/01/2020 12:09:00 PM EDT [facility] Name Value Range Interpretation Code Description Data Sanjuana rce(s) Supporting Document(s) COMPREHENSIVE METABOLIC PANEL [facility] COMPREHENSIVE METABOLIC PANEL Sodium [Moles/volume] in Serum or Plasma 137 mEq/L 134 - 153 [facility] Potassium [Moles/volume] in Serum or Plasma 5.3 mEq/L 3.6 - 5.0 H [facility] Chloride [Moles/volume] in Serum or Plasma 96 mEq/L 98 - 107 L [facility] Carbon dioxide, total [Moles/volume] in Serum or Plasma 28 MEQ/L 22 - 30 [facility] Glucose [Mass/volume] in Serum or Plasma 198 MG/DL 65 - 110 H [facility] BUN 49 MG/DL 7 - 21 H [facility] Creatinine [Mass/volume] in Serum or Plasma 2.4 MG/DL 0.7 - 1.5 H [facility] BUN/CREAT 20 8 - 27 [facility] Protein [Mass/volume] in Serum or Plasma 7.1 G/DL 6.3 - 8.2 [facility] Albumin [Mass/volume] in Serum or Plasma 4.1 G/DL 3.9 - 5.0 [facility] Globulin [Mass/volume] in Serum by calculation 3.0 GM/DL 2.4 - 3.2 [facility] A/G RATIO 1.4 0.8 - 2.0 [facility] Calcium [Mass/volume] in Serum or Plasma 9.4 MG/DL 8.4 - 10.2 [facility] Bilirubin.total [Mass/volume] in Serum or Plasma <0.7 MG/DL 0.2 - 1.3 [facility] Alkaline phosphatase [Enzymatic activity/volume] in Serum or Plasma 70 U/L 38 - 126 [facility] Aspartate aminotransferase [Enzymatic activity/volume] in Serum or Plasma 22 U/L 5 - 40 [facility] Alanine aminotransferase [Enzymatic activity/volume] in Seru m or Plasma 21 U/L 7 - 56 [facility] Anion gap 3 in Serum or Plasma 13.0 mmol/L 8.0 - 16.0 [facility] AGE 64 yrs [facility] al NON-AA GFR 29 mL/min [facility] AFR AMER GFR 35 mL/min [facility] Male GFR In terprentation 20-49 [...] >32 mL/min Normal ID Date Data Source [id number] 04/01/2020 12:07:00 PM EDT [facility] Name Value Range Interpretation Code Description Data Sanjuana rce(s) Supporting Document(s) BNP 302 PG/ML 0 - [address] [facility] ID Date Data Source [id number] 04/01/2020 12:06:00 PM EDT [facility] Name Value Range Interpretation Code Description Data Sanjuana rce(s) Supporting Document(s) TROPONIN T 0.02 NG/ML 0.00 - 0.10 [facility] spital TROPONIN T0.1 ng/ml Recommended as the c linical threshold value forTroponin T. ID Date Data Source [id number] 04/01/2020 12:01:00 PM EDT [facility] Name Value Range Interpretation Code Description Data Sanjuana rce(s) Supporting Document(s) Prothrombin time (PT) 13.3 SECONDS 11.0 - 15.5 [facility] INR in Platelet poor plasma by Coagulation assay 1.00 0.93 - 1. 23 [facility] aPTT in Blood by Coagulation assay 33.7 SECONDS 24.8 - 36.7 [facility] \\BLDo\\INR INTERPRETATION\\BLDx\\ Therapeutic range for Coumadin and related oral anticoagulants. - International Normalized Ratio (INR): 2.0 - 3.0 for Venous Thrombosis, Pulmonary Embolus, Tissue heart valves, Acute NM Atrial Fibrillation, Valvular heart disease and recurrent Systemic Embolism. - International Normalized Ratio (INR): 2.5 - 3.5 for Mechanical Prosthetic valve. ID Date Data Source [id number] 04/01/2020 11:50:00 AM EDT [facility] Name Value Range Interpretation Code Description Data Sanjuana rce(s) Supporting Document(s) Lactate [Moles/volume] in Serum or Plasma 2.5 MMOL/L 0.2 - 2.2 H [facility] ID Date Data Source [id number] 04/01/2020 01:02:00 PM EDT [facility] Name Value Range Interpretation Code Description Data Sanjuana rce(s) Supporting Document(s) CBC W/AUTOMATED DIFF [facility] COMPLETE BLOOD COUNT Leukocytes [#/volume] in Blood by Automated count 20.9 10^3/uL 4.2 - 11.0 H [facility] Erythrocytes [#/volume] in Blood by Automated count 4.93 10^6/uL 4. 50 - 6.30 [facility] Hemoglobin [Mass/volume] in Blood 13.5 g/dL 14.0 - 16.0 L [facility] Hematocrit [Volume Fraction] of Blood by Automated count 42.9 % 4 1.0 - 51.0 [facility] Erythrocyte mean corpuscular volume [Entitic volume] by Auto mated count 87.0 fL 80.0 - 94.0 [facility] Erythrocyte mean corpuscular hemoglobin [Entitic mass] by Automated count 27.4 pg 27.0 - 34.0 [facility] Erythrocyte mean corpuscular hemoglobin concentration [Mass/volume] by Automated count 31.5 g/dL 31.0 - 36.0 [facility] Erythrocyte distribution width [Ratio] by Automated count 14.7 % 11.5 - 14.8 [facility] Platelets [#/volume] in Blood by Automated count 204 10^3/uL 150 - 45 0 [facility] Platelet mean volume [Entitic volume] in Blood by Automated count 10.1 fL 7.4 - 10.4 [facility] Neutrophils/100 leukocytes in Blood by Automated count 88.2 % 37. 0 - 80.0 H [facility] Lymphocytes/100 leukocytes in Blood by Manual count 2.9 % 25.0 - 40.0 L [facility] Monocytes/100 leukocytes in Blood by Automated count 8.0 % 3.0 - 8.0 [facility] Eosinophils/100 leukocytes in Blood by Automated count 0.0 % 0.0 - 7.0 [facility] Basophils/100 leukocytes in Blood by Automated count 0.4 % 0.0 - 2.0 [facility] %IG 0.5 % 0.0 - 0.0 [facility] %NRBC 0.0 % 0.0 - 0.0 [facility] al Neutrophils [#/volume] in Blood by Automated count 18.39 10^3/uL 2. 00 - 6.90 H [facility] Lymphocytes [#/volume] in Blood by Automated count 0.61 10^3/uL 0.60 - 3.40 [facility] Monocytes [#/volume] in Blood by Automated count 1.66 10^3/uL 0.00 - 0.90 H [facility] Eosinophils [#/volume] in Blood by Automated count 0.01 10^3/uL 0.00 - 0.70 [facility] Basophils [#/volume] in Blood by Automated count 0.08 10^3/uL 0.00 - 0.20 [facility] #IG 0.11 10^3/uL 0.00 - 0.10 [facility] #NRBC 0.00 10^3/uL 0.00 - 0.00 [facility] MANUAL DIFF SEE BELOW [facility] ital Segmented neutrophils/100 leukocytes in Blood by Manual count 73 % 37 - 80 [facility] BAND 11 % 0 - [address] [facility] %LYMPH 10 % 25 - 40 L [facility] al %MONO 6 % 3 - 8 [facility] al RBC MORPH MORPH IS NORMAL [facility] ID Date Data Source [id number] 03/26/2020 12:20:00 PM EDT [facility] Name Value Range Interpretation Code Description Data Sanjuana rce(s) Supporting Document(s) Erythrocyte sedimentation rate by Westergren method 25 mm/hr 0 - 20 H [facility] SED RATE REENTER 25 [facility] ID Date Data Source [id number] 03/26/2020 08:48:00 AM EDT [facility] Name Value Range Interpretation Code Description Data Sanjuana rce(s) Supporting Document(s) C reactive protein [Mass/volume] in Serum or Plasma by High sensitivity method 33.73 MG/L 1.00 - 3.00 H [facility] CDC/S HS-CRP CUT-OFF: RELATIVE RISK: <1.0 mg/L Low 1.0 - 3.0 mg/L Average >3.0 mg/L High Optimally, the average of HS-CRP results repeated two weeks apart should be used for risk assessment. ID Date Data Source [id number] 03/26/2020 08:10:00 AM EDT [facility] Name Value Range Interpretation Code Description Data Sanjuana [facility](s) Supporting Document(s) COMPREHENSIVE METABOLIC PANEL [facility] COMPREHENSIVE METABOLIC PANEL Sodium [Moles/volume] in Serum or Plasma 140 mEq/L 134 - 153 [facility] Potassium [Moles/volume] in Serum or Plasma 4.7 mEq/L 3.6 - 5.0 [facility] Chloride [Moles/volume] in Serum or Plasma 101 mEq/L 98 - 107 [facility] Carbon dioxide, total [Moles/volume] in Serum or Plasma 32 MEQ/L 22 - 30 H [facility] Glucose [Mass/volume] in Serum or Plasma 70 MG/DL 65 - 110 [facility] BUN 27 MG/DL 7 - 21 H [facility] al Creatinine [Mass/volume] in Serum or Plasma 0.8 MG/DL 0.7 - 1.5 [facility] BUN/CREAT 34 8 - 27 H [facility] al Protein [Mass/volume] in Serum or Plasma 6.5 G/DL 6.3 - 8.2 [facility] Albumin [Mass/volume] in Serum or Plasma 3.7 G/DL 3.9 - 5.0 L [facility] Globulin [Mass/volume] in Serum by calculation 2.8 GM/DL 2.4 - 3.2 [facility] A/G RATIO 1.3 0.8 - 2.0 [facility] Calcium [Mass/volume] in Serum or Plasma 9.4 MG/DL 8.4 - 10.2 [facility] Bilirubin.total [Mass/volume] in Serum or Plasma <0.7 MG/DL 0.2 - 1.3 [facility] Alkaline phosphatase [Enzymatic activity/volume] in Serum or Plasma 71 U/L 38 - 126 [facility] Aspartate aminotransferase [Enzymatic activity/volume] in Serum or Plasma 18 U/L 5 - 40 [facility] Alanine aminotransferase [Enzymatic activity/volume] in Seru m or Plasma 18 U/L 7 - 56 [facility] Anion gap 3 in Serum or Plasma 7.0 mmol/L 8.0 - 16.0 L [facility]GE 64 y[facility] NON-AA GFR >60 mL/min [facility] ital AFR AMER GFR >60 mL/min [facility] Male GFR In terprentation 20-49 [...] >32 mL/min Normal ID Date Data Source [id number] 03/26/2020 07:52:00 AM EDT [facility] Name Value Range Interpretation Code Description Data Sanjuana rce(s) Supporting Document(s) CBC NO DIFF [facility] ital COMPLETE BLOOD COUNT Leukocytes [#/volume] in Blood by Automated count 9.0 10^3/uL 4.2 - 1 1.0 [facility] Erythrocytes [#/volume] in Blood by Automated count 4.46 10^6/uL 4. 50 - 6.30 L [facility] Hemoglobin [Mass/volume] in Blood 11.9 g/dL 14.0 - 16.0 L [facility] Hematocrit [Volume Fraction] of Blood by Automated count 39.4 % 4 1.0 - 51.0 L [facility] Erythrocyte mean corpuscular volume [Entitic volume] by Auto mated count 88.3 fL 80.0 - 94.0 [facility] Erythrocyte mean corpuscular hemoglobin [Entitic mass] by Automated count 26.7 pg 27.0 - 34.0 L [facility] Erythrocyte mean corpuscular hemoglobin concentration [Mass/volume] by Automated count 30.2 g/dL 31.0 - 36.0 L [facility] Erythrocyte distribution width [Ratio] by Automated count 14.8 % 11.5 - 14.8 [facility] Platelets [#/volume] in Blood by Automated count 179 10^3/uL 150 - 45 0 [facility] Platelet mean volume [Entitic volume] in Blood by Automated count 9.4 fL 7.4 - 10.4 [facility] ID Date Data Source [id number] 03/03/2020 07:46:00 PM EDT [facility] Name Value Range Interpretation Code Description Data Sanjuana rce(s) Supporting Document(s) Erythrocyte sedimentation rate by Westergren method 17 mm/hr 0 - 20 [facility] SED RATE REENTER 17 [facility] ID Date Data Source [id number] 03/03/2020 07:35:00 PM EDT [facility] Name Value Range Interpretation Code Description Data Sanjuana rce(s) Supporting Document(s) C reactive protein [Mass/volume] in Serum or Plasma by High sensitivity method 5.33 MG/L 1.00 - 3.00 H [facility] CDC/S HS-CRP CUT-OFF: RELATIVE RISK: <1.0 mg/L Low 1.0 - 3.0 mg/L Average >3.0 mg/L High Optimally, the average of HS-CRP results repeated two weeks apart should be used for risk assessment. ID Date Data Source [id number] 03/03/2020 07:21:00 PM [facility] Name Value Range Interpretation Code Description Data Sanjuana rce(s) Supporting Document(s) CBC NO DIFF [facility] COMPLETE BLOOD COUNT Leukocytes [#/volume] in Blood by Automated count 7.4 10^3/uL 4.2 - 1 1.0 [facility] Erythrocytes [#/volume] in Blood by Automated count 4.62 10^6/uL 4. 50 - 6.30 [facility] Hemoglobin [Mass/volume] in Blood 12.4 g/dL 14.0 - 16.0 L [facility] Hematocrit [Volume Fraction] of Blood by Automated count 40.5 % 4 1.0 - 51.0 L [facility] Erythrocyte mean corpuscular volume [Entitic volume] by Auto mated count 87.7 fL 80.0 - 94.0 [facility] Erythrocyte mean corpuscular hemoglobin [Entitic mass] by Automated count 26.8 pg 27.0 - 34.0 L [facility] Erythrocyte mean corpuscular hemoglobin concentration [Mass/volume] by Automated count 30.6 g/dL 31.0 - 36.0 L [facility] Erythrocyte distribution width [Ratio] by Automated count 16.2 % 11.5 - 14.8 H [facility] Platelets [#/volume] in Blood by Automated count 201 10^3/uL 150 - 45 0 [facility] Platelet mean volume [Entitic volume] in Blood by Automated count 9.7 fL 7.4 - 10.4 [facility] Procedure Social History Code Duration Value Status Description Data Source(s ) Alcohol intake 09/12/2020 12:00:00 AM EST Current non-d jenny of alcohol (finding) completed Current non-drinker of alcohol (finding) [facility] [place] Alcohol intake 09/11/2020 12:00:00 AM EST Ex-drinker (finding) comp leted Ex- drinker (finding) [facility] Tobacco use and exposure 09/11/2020 12:00:00 AM EST Never used co mpleted Never used [facility] Smoking 09/11/2020 12:00:00 AM EST Current some day smoker com pleted Current some day smoker [facility] Smoking 06/17/2020 12:00:00 AM EST Current Smoker completed Curre nt Smoker [facility] Smoking 06/17/2020 12:00:00 AM EST Current Smoker completed Curre nt Smoker eCW1 ([facility]) Smoking 06/17/2020 12:00:00 AM EST Current Smoker completed Curre nt Smoker eCW1 ([facility]) Smoking 04/21/2020 12:00:00 AM EDT Current Smoker completed Curre nt Smoker eCW1 ([facility]) Vital Signs ID Date Data Source UNK Name Value Range Interpretation Code Description Data Source(s) Oxygen saturation in Arterial blood by Pulse oximetry 99 % 99 % [facility] Heart rate 65 /min 65 /min [facility] Respiratory rate 18 /min 18 /min [facility] Systolic blood pressure 118 mm[Hg] 118 mm[Hg] [facility] Diastolic blood pressure 66 mm[Hg] 66 mm[Hg] [facility] Body temperature 36.72 Johana 36.72 Johana [facility] Body height 182.9 cm 182.9 cm [facility] Body weight 79.198 kg 79.198 kg [facility] Body mass index (BMI) [Ratio] 23.68 kg/m2 23.68 kg/m2 [facility] Systolic blood pressure 93 mm[Hg] 93 mm[Hg] [facility] Diastolic blood pressure 64 mm[Hg] 64 mm[Hg] [facility] Heart rate 86 /min 86 /min [facility] Body temperature 36.67 Johana 36.67 Johana [facility] Respiratory rate 16 /min 16 /min [facility] Oxygen saturation in Arterial blood by Pulse oximetry 98 % 98 % [facility] Body height 180.3 cm 180.3 cm [facility] Body weight 80 kg 80 kg [facility] Body mass index (BMI) [Ratio] 24.60 kg/m2 24.60 kg/m2 [facility] Body weight 220 [lb_av] 220 [lb_av] W1 ([facility]) Body height 71 [in_i] 71 [in_i] W1 ([facility]) Body mass index (BMI) [Ratio] 30.68 kg/m2 30.68 kg/m2 [facility] ([facility] Systolic blood pressure 120 mm[Hg] 120 mm[Hg] e CW1 ([facility]) Diastolic blood pressure 78 mm[Hg] 78 mm[Hg] eCW1 ([facility]) ID Date Data Source [id number] 09/18/2020 04:20:02 PM [facility] Hospital Name Value Range Interpretation Code Description Data Source(s) WEIGHT RECORDED 182.1 lb 182.1 lb [facility] Body height Measured 62 in 62 in [facility] TRANSFER FROM [facility] ID Date Data Source [id number] 09/11/2020 06:05:28 PM [facility] Name Value Range Interpretation Code Description Data Source(s) TRANSFER FROM [facility] ID Date Data Source [id number] 09/06/2020 10:16:17 AM [facility] Name Value Range Interpretation Code Description Data Source(s) WEIGHT RECORDED 178.00 pounds 178.00 pounds [facility] Height 72 Inches 072 Inches [facility] ID Date Data Source [id number] 08/31/2020 04:21:[address] [facility] Name Value Range Interpretation Code Description Data Source(s) WEIGHT 80 kilos 80 kilos [facility] al HEIGHT 182.88 centimeters 182.88 centimeter [facility] WEIGHT 83 kilos 83 kilos [facility] HEIGHT 182.88 centimeters 182.88 centimeter [facility] WEIGHT 83.2 kilos 83.2 kilos [facility] al HEIGHT 182.88 centimeters 182.88 centimeter [facility] ID Date Data Source [id number] 07/20/2020 08:58:36 AM [facility] Name Value Range Interpretation Code Description Data Source(s) WEIGHT RECORDED 192.10 pounds 192.10 pounds [facility] Height 72 Inches 072 Inches [facility] WEIGHT RECORDED 198.00 pounds 198.00 pounds [facility] Height 72 Inches 072 Inches [facility] Patient Treatment Plan of Care Planned Activity Planned Date Details Description Data Source (s) vancomycin (VANCOCIN) 1250 mg in NaCl 0.9 % 261 mL (pr emix) 09/15/2020 12:00:00 AM [facility]ital doxycycline hyclate 100 MG Oral Capsule 09/14/2020 12:00:00 AM [facility] sodium chloride flush 0.9 % 10 mL 09/12/2020 07:26:24 AM [facility] sodium chloride flush 0.9 % 10 mL 09/12/2020 07:26:24 AM [facility] sodium chloride flush 0.9 % 10 mL 09/12/2020 07:26:20 AM [facility] dextrose 50 % IV solution 25 mL 09/12/2020 03:16:19 AM [facility] Glucagon 1 MG Injection 09/12/2020 03:16:19 AM [facility] Glucose 0.417 MG/MG Oral Gel 09/12/2020 03:16:19 AM [facility] albuterol (PROVENTIL HFA) inhaler 2 puff 09/12/2020 03:15:43 AM [facility] Docusate Sodium 100 MG Oral Capsule 09/12/2020 03:15:43 AM [facility] Dexamethasone 6 MG Oral Tablet 09/08/2020 12:00:00 AM [facility] 3 ML insulin detemir 100 UNT/ML Pen Injector 09/08/2020 12:00:00 AM [facility] vancomycin (VANCOCIN) 1 gram/200 mL IVPB 09/08/2020 12:00:00 AM [facility] 24 HR metoprolol succinate 50 MG Extended Release Oral Tablet 09/07/2020 12:00:00 AM [facility] albuterol HFA (VENTOLIN HFA) 90 mcg/actuation inhaler 09/07/2020 12:00:00 AM [facility] 200 ACTUAT Ipratropium [place] 0.017 MG/ACTUAT Metered Dose Inhaler 09/07/2020 12:00:00 AM [facility] Famotidine 20 MG Oral Tablet 09/07/2020 12:00:00 AM [facility] 60 ACTUAT formoterol fumarate 0.005 MG/A CTUAT / mometasone furoate 0.2 MG/ACTUAT Metered Dose Inhaler 09/07/2020 12:00:00 AM [facility] 3 ML Insulin, Aspart, Human 100 UNT/ML Pen Injector 09/07/19 12:00:00 AM [facility] Acetaminophen 325 MG Oral Tablet 09/07/2020 12:00:00 AM [facility] 150 ML Levofloxacin 5 MG/ML Injection 08/31/2020 12:00:00 AM EST [facility] Amiodarone hydrochloride 200 MG Oral Tablet 01/22/2020 12:00:00 AM [facility] 24 HR metoprolol succinate 50 MG Extended Release Oral Tablet 01/21/2020 12:00:00 AM [facility] atorvastatin 80 MG Oral Tablet 01/21/2020 12:00:00 AM [facility] albuterol (PROVENTIL HFA;VENTOLIN HFA) 108 (90 Base) M CG/ACT inhaler 03/07/2019 12:00:00 AM [facility] Amlodipine 10 MG Oral Tablet 03/07/2019 12:00:00 AM [facility] 60 ACTUAT salmeterol 0.05 MG/ACTUAT Dry Powder Inhaler 03/07/2019 12:00:00 AM [facility] Lisinopril 20 MG Oral Tablet 03/07/2019 12:00:00 AM [facility] Metoprolol Tartrate [address] [facility] Guaifenesin 20 MG/ML Oral Solution [facility] CHOLECALCIFEROL, VITAMIN D3, ORAL [facility] vancomycin/0.9 % sod chloride (vancomyci n in 0.9 % sodium chl) 1.25 gram/250 mL solution [facility] Ceftazidime 1000 MG Injection [facility] 120 ACTUAT Albuterol 0.1 MG/ACTUAT / Ipr atropium [place] 0.02 MG/ACTUAT Metered Dose Inhaler [facility] Levofloxacin 750 MG Oral Tablet [facility] Amlodipine 10 MG Oral Tablet [facility] 24 HR metoprolol succinate 50 MG Extended Release Oral Tablet [facility]
[2021-04-30] MEDS ORDERED: ASPI81TA26 PO (19:25)
[2021-04-30] MEDS ORDERED: ELIQ5TAB PO (19:25)
[2021-04-30] MEDS ORDERED: METO1TAB32 PO (19:25)
[2021-04-30] MEDS ORDERED: FENT50DI5 TD (19:25)
[2021-04-30] MEDS ORDERED: HOME MED LIST COMPLETE! XX SCH (19:25)
[2021-04-30] MEDS ORDERED: GLUCAGON INJ 1MG VIAL SC PRN (19:40)
[2021-04-30] MEDS ORDERED: GLUCOSE 4GM CHEW TABLET PO PRN (19:40)
[2021-04-30] MEDS ORDERED: DEXTROSE 50% 50 ML SYRINGE IV PRN (19:40)
[2021-04-30] MEDS ORDERED: FENTANYL REMOVAL DOCUMENTATION MISC XX SCH (19:40)
[2021-04-30] MEDS ORDERED: IPRATROPIUM 0.5MG/ALBUTEROL 2.5MG INH SOL UD 3ML (DUONEB) NEB PRN (19:40)
[2021-04-30 20:46] LABS: RSV AMPLIFICATION NEGATIVE (NEGATIVE)
[2021-04-30] MEDS: LATANOPROST 0.005% OPHTH SOLN 2.5 ML OU SCH (21:00)
[2021-04-30] MEDS: VANCOMYCIN HCL 1,000 MG, VIAL MATE ADAPTER 1 EACH in NS 250 ML IV SCH (22:45)
[2021-04-30] MEDS: APIXABAN 5 MG TAB (ELIQUIS) PO SCH (23:04)
[2021-04-30] MEDS: ATORVASTATIN 20 MG TAB PO SCH (23:04)
[2021-04-30] MEDS: GABAPENTIN 300 MG CAP PO SCH (23:04)
[2021-04-30] MEDS: HumaLOG INSULIN (NovoLOG) PER UNIT SC SCH (23:05)
[2021-04-30] MEDS: LEVEMIR (INSULIN DETEMIR) 1 UNITS/0.01ML SC SCH (23:05)
[2021-05-01 01:25] VITALS: BP 108/66
[2021-05-01] MEDS: VANCOMYCIN HCL 1,000 MG, VIAL MATE ADAPTER 1 EACH in NS 250 ML IV SCH ×3 (04:51→22:33)
[2021-05-01 06:38] VITALS: BP 107/64
[2021-05-01 08:14] LABS: HEMATOCRIT 37.1 % (42.0-52.0); HEMOGLOBIN 11.4 g/dl (13.5-17.5); MEAN CORPUSCULAR HEMOGLOBIN 25.3 pg (27.0-33.0); MEAN CORPUSCULAR HGB CONC 30.7 g/dl (32.0-36.5); MEAN CORPUSCULAR VOLUME 82.3 fl (80.0-96.0); PLATELET COUNT, AUTOMATED 187 10^3/uL (150-450); RED BLOOD COUNT 4.51 10^6/uL (4.30-6.10); WHITE BLOOD COUNT 5.5 10^3/uL (4.0-10.0)
[2021-05-01] MEDS ORDERED: FLUBLOK(EGG FREE)(QUAD)INFLUENZA VACC 0.5ML SYRINGE 18YRS & OLDER IM ONE (09:00)
[2021-05-01] MEDS ORDERED: PREVNAR 13 VACCINE SYRINGE IM ONE (09:00)
[2021-05-01] MEDS ORDERED: cefTRIAXone SOD 1 GM in D5W MINI-BAG PLUS 50 ML IV SCH (09:00)
[2021-05-01] MEDS: LEVEMIR (INSULIN DETEMIR) 1 UNITS/0.01ML SC SCH ×2 (09:11→20:54)
[2021-05-01] MEDS: HumaLOG INSULIN (NovoLOG) PER UNIT SC SCH ×4 (09:11→20:54)
[2021-05-01] MEDS: PANTOPRAZOLE 40MG TAB (PROTONIX) PO SCH (09:13)
[2021-05-01] MEDS: DULoxetine 30MG CAPSULE (CYMBALTA) PO SCH (09:13)
[2021-05-01] MEDS: ASPIRIN 81MG ENTERIC TABLET PO SCH (09:13)
[2021-05-01] MEDS: fentaNYL 50 MCG/HR PATCH TD SCH (09:13)
[2021-05-01] MEDS: APIXABAN 5 MG TAB (ELIQUIS) PO SCH ×2 (09:14→20:52)
[2021-05-01] MEDS: METOPROLOL SUCC *XL* 25MG TAB (TopROL *XL*) PO SCH (09:14)
[2021-05-01] MEDS: GABAPENTIN 300 MG CAP PO SCH ×3 (09:14→20:52)
[2021-05-01 09:25] LABS: BLOOD UREA NITROGEN 16 MG/DL (7-18); CALCIUM LEVEL 8.6 MG/DL (8.8-10.2); CARBON DIOXIDE LEVEL 30 MEQ/L (21-32); CHLORIDE LEVEL 105 MEQ/L (98-107); CREATININE FOR GFR 0.92 MG/DL (0.70-1.30); GLOMERULAR FILTRATION RATE > 60.0 (>49); GLUCOSE, FASTING 177 MG/DL (70-100); MAGNESIUM LEVEL 1.5 MG/DL (1.8-2.4); PHOSPHORUS LEVEL 2.8 MG/DL (2.5-4.9); POTASSIUM SERUM 4.1 MEQ/L (3.5-5.1); SODIUM LEVEL 138 MEQ/L (136-145)
[2021-05-01] MEDS: SALMETEROL DISKUS 50MCG INHALER (SEREVENT) INH SCH ×2 (11:07→19:39)
[2021-05-01 14:00] VITALS: BP 100/62
--- NOTE | 2021-05-01 16:02 | IPNPDOC ---
Subjective Date Seen The patient was seen on 05/01/21. Subjective Chief Complaint/HPI Patient seen and examined at bedside this morning. He had no new complaints. Other systems 10 point review of system was negative except for what is noted in the HPI Objective Physical Examination Other physical findings General: Lying in bed, no acute distress Head/Neck/Throat: Trachea midline, mucous membranes moist Eyes: Sclera anicteric, PERRLA Thorax: Normal respiratory effort on room air, lungs clear to auscultation bilaterally, no wheezes/rales/rhonchi Cardiovascular: Normal rate, regular rhythm, normal S1, S2; no S3, S4, rubs/gallops/murmurs Abdomen: Bowel sounds present, soft/nontender/nondistended Genitourinary: No CVA tenderness, no Wu in place Musculoskeletal: Moving all extremities, no edema Skin: Left leg/foot - 1st toe is amputated. Lesion of the 5th toe, no discharge appreciated. There is maceration of the left calf, no erythema or discharge a ppreciated. Wound appears clean. Right foot - medial aspect of the foot there is bony protuberance with an open draining lesion, erythema and induration has decreased from admission . Sacral region -erythema appreciated Neurologic: AAOx3, speech fluent and goal-directed, no focal deficits, grossly i ntact Assessment /Plan Assessment #Right foot cellulitis -Continue with vancomycin. Wound cultures as well as blood cultures are pending, will narrow antibiotics accordingly. -Wound care consult to ensure no debridement is required #Chronic wound -We will obtain wound care consult. #Insulin-dependent diabetes mellitus -Diagnosed in 1997. Continue with ambulatory insulin regimen. Sliding scale, Accu-Cheks, and hypoglycemic protocol. #HFpEF -No signs of acute exacerbation. #COPD -Continue ambulatory DuoNebs #Paroxysmal atrial fibrillation -Presently was in sinus rhythm. Continue with metoprolol. He is on Eliquis 2.5 mg twice daily. #GERD -Continue with pantoprazole #DVT prophylaxis -Offered by apixaban. Plan/VTE VTE Prophylaxis Ordered?: Yes VS, I&O, 24H, Fishbone Vital Signs/I&O Vital Signs Date Time Temp Pulse Resp B/P (MAP) Pulse Ox O2 Delivery O2 Flow Rate FiO2 05/01/21 09:43 18 05/01/21 09:14 78 120/68 05/01/21 06:38 98.4 99 Room Air I&O- Last 24 Hours up to 6 AM 05/01/21 06:00 Intake Total 50 ml Output Total 500 ml Balance -450 ml Laboratory Data 24H LABS Laboratory Tests 2 04/30/21 16:12: Immature Granulocyte % (Auto) 0.8, Neutrophils (%) (Auto) 72.8H, Lymphocytes (%) (Auto) 12.9L, Monocytes (%) (Auto) 12.0H, Eosinophils (%) (Auto) 0.7, Basophils (%) (Auto) 0.8, Neutrophils # (Auto) 5.6, Lymphocytes # (Auto) 1.0L, Monocytes # (Auto) 0.9H, Eosinophils # (Auto) 0.1, Basophils # (Auto) 0.1, Nucleated Red Blood Cells % (auto) 0.0, Erythrocyte Sedimentation Rate 35H, Anion Gap 2L, Glomerular Filtration Rate > 60.0, Calcium Level 9.5, C-Reactive Protein, Quantitative 5.30H 04/30/21 19:47: Coronavirus (COVID-19)(PCR) NEGATIVE, Influenza Type A (RT-PCR) NEGATIVE, Influenza Type B (RT-PCR) NEGATIVE, Respiratory Syncytial Virus (PCR) NEGATIVE 04/30/21 22:50: Bedside Glucose (Misc Panel) 267H 05/01/21 04:54: Methicillin-Resist S.aureus DNA PCR DETECTEDA 05/01/21 07:25: Nucleated Red Blood Cells % (auto) 0.0, Anion Gap 3L, Glomerular Filtration Rate > 60.0, Calcium Level 8.6L, Phosphorus Level 2.8, Magnesium Level 1.5L 05/01/21 08:03: Bedside Glucose (Misc Panel) 173H 05/01/21 11:36: Bedside Glucose (Misc Panel) 126H CBC/BMP Laboratory Tests 04/30/21 16:12 05/01/21 07:25 Microbiology Microbiology 05/01/21 Wound Culture, Received Pending 04/30/21 Blood Culture, Received Pending 04/30/21 Blood Culture, Received Pending 04/30/21 Blood Culture, Received Pending 04/30/21 Blood Culture, Received Pending FIOR SHEPPARD M.D. May 01, 2021 16:02
[2021-05-01] MEDS ORDERED: MAGNESIUM OXIDE 400MG TAB (MAG-OX) PO ONE (17:00)
[2021-05-01 19:55] VITALS: BP 102/68
[2021-05-01] MEDS: LATANOPROST 0.005% OPHTH SOLN 2.5 ML OU SCH (20:53)
[2021-05-01] MEDS: ATORVASTATIN 20 MG TAB PO SCH (20:53)
[2021-05-02] MEDS: VANCOMYCIN HCL 1,000 MG, VIAL MATE ADAPTER 1 EACH in NS 250 ML IV SCH ×3 (04:32→19:53)
[2021-05-02 06:49] VITALS: BP 111/61
[2021-05-02] MEDS: SALMETEROL DISKUS 50MCG INHALER (SEREVENT) INH SCH ×2 (07:34→20:55)
[2021-05-02] MEDS: LEVEMIR (INSULIN DETEMIR) 1 UNITS/0.01ML SC SCH ×2 (08:29→19:54)
[2021-05-02] MEDS: HumaLOG INSULIN (NovoLOG) PER UNIT SC SCH ×4 (08:29→20:35)
[2021-05-02] MEDS: APIXABAN 5 MG TAB (ELIQUIS) PO SCH ×2 (08:30→19:54)
[2021-05-02] MEDS: DULoxetine 30MG CAPSULE (CYMBALTA) PO SCH (08:30)
[2021-05-02] MEDS: PANTOPRAZOLE 40MG TAB (PROTONIX) PO SCH (08:30)
[2021-05-02] MEDS: METOPROLOL SUCC *XL* 25MG TAB (TopROL *XL*) PO SCH (08:30)
[2021-05-02] MEDS: ASPIRIN 81MG ENTERIC TABLET PO SCH (08:30)
[2021-05-02] MEDS: GABAPENTIN 300 MG CAP PO SCH ×3 (08:30→19:54)
--- NOTE | 2021-05-02 10:38 | CR ---
CONSULTATION DATE: 05/02/2021 REASON FOR CONSULTATION: Foot ulceration. HISTORY OF PRESENT ILLNESS: Aurelio Alex is a patient known to me who was admitted on 04/30 due to worsening of a right foot ulceration. He had been in rehab for a while and had been discharged to home. He has had home nursing monitoring his ulcerations. He was noted to have worsening condition and infection and was directed to go to the Emergency Room. PAST MEDICAL HISTORY: The patient's past medical history includes: 1. Diabetes with neuropathy. 2. Coronary artery disease with stents. 3. Atrial fibrillation. 4. Chronic anemia. 5. Obstructive sleep apnea. 6. Chronic kidney disease. 7. Peripheral vascular disease. 8. Chronic obstructive pulmonary disease. 9. Hypertension. 10. Melanoma. PAST SURGICAL HISTORY: The patient's past surgical history is significant for: 1. Rotator cuff. 2. Iliac artery angioplasty and stent. 3. Left SFA angioplasty and stent. 4. Left hallux amputation. 5. C-6/7 fusion. 6. Cardiac stents. 7. Melanoma removal right foot. 8. Mid foot fusion. SOCIAL HISTORY: Positive for smoking. FAMILY HISTORY: Noncontributory. ALLERGIES: Tape. REVIEW OF SYSTEMS: He denies nausea, vomiting, fever or chills. PHYSICAL EXAMINATION: VITAL SIGNS: He has been afebrile. EXTREMITIES: Lower extremity examination on the left posterior calf there is a fully granular superficial ulceration which has been present for years. On the right foot there is an ulceration on the plantar medial aspect of the mid foot with exposed bone and some necrotic tissue. LABORATORY STUDIES: Labs were reviewed. White blood cell count today is 5.5. ESR is 35. CRP is 5.3. IMAGING: Foot x-ray shows previous known Charcot deformity. ASSESSMENT: A 65-year-old diabetic male with infected right foot ulceration. TREATMENT: Wound is dbrided using a curette in excisional fashion including skin subcutaneous tissue and bone down to good bleeding tissue. PLAN: 1. Wound dressings are to be Hydrofera Blue and Optilock to foot daily as well as Optilock to posterior calf. 2. He has an appointment with Dr. Powers this week. 3. He can follow up with me in the office in 2 months.
--- NOTE | 2021-05-02 11:34 | IPNPDOC ---
Subjective Date Seen The patient was seen on 05/02/21. Subjective Chief Complaint/HPI Patient was seen and bedside this morning. He had no new complaints. He was explained the plan podiatry evaluating his right foot wound and awaiting for wound care physician (Dr. Powers) to evaluate his left calf maceration. Wound cultures are also pending which would help narrow his antibiotics. He had no new complaints today. Other systems 10 point review of system was negative except for what is noted in the HPI Objective Physical Examination Other physical findings General: Lying in bed, no acute distress Head/Neck/Throat: Trachea midline, mucous membranes moist Eyes: Sclera anicteric, no erythema or discharge appreciated bilaterally Thorax: Normal respiratory effort on room air, lungs clear to auscultation bilaterally, no wheezes/rales/rhonchi Cardiovascular: Normal rate, regular rhythm, normal S1, S2; no S3, S4, rubs/gallops/murmurs Abdomen: Bowel sounds present, soft/nontender/nondistended Genitourinary: No CVA tenderness, no Wu in place Musculoskeletal: Moving all extremities, no edema Skin: Left leg/foot - 1st toe is amputated. Lesion of the 5th toe, no discharge appreciated. There is maceration of the left calf, no erythema or discharge appreciated. Wound appears clean. Right foot - medial aspect of the foot there is bony protuberance with an open draining ulcer. Erythema and induration has decreased from admission . Sacral region -erythema appreciated Neurologic: AAOx3, speech fluent and goal-directed, no focal deficits, grossly intact Assessment /Plan Assessment #Right foot cellulitis -Continue with vancomycin. Wound cultures as well as blood cultures are pending, will narrow antibiotics accordingly. -Podiatry consulted for possible bedside debridement. #Chronic wound -We will obtain wound care consult. -Wound care consult to ensure no debridement is required of the left calf #Insulin-dependent diabetes mellitus -Diagnosed in 1997. Continue with ambulatory insulin regimen. Sliding scale, Accu-Cheks, and hypoglycemic protocol. #HFpEF -No signs of acute exacerbation. #COPD -Continue ambulatory DuoNebs #Paroxysmal atrial fibrillation -Presently was in sinus rhythm. Continue with metoprolol. He is on Eliquis 2.5 mg twice daily. #GERD -Continue with pantoprazole #DVT prophylaxis -Offered by apixaban. Plan/VTE VTE Prophylaxis Ordered?: Yes VS, I&O, 24H, Fishbone Vital Signs/I&O Vital Signs Date Time Temp Pulse Resp B/P (MAP) Pulse Ox O2 Delivery O2 Flow Rate FiO2 05/02/21 08:30 78 112/66 05/02/21 06:49 98.2 16 97 Room Air I&O- Last 24 Hours up to 6 AM 05/02/21 06:00 Intake Total 1830 ml Output Total 1250 ml Balance 580 ml Laboratory Data 24H LABS Laboratory Tests 2 05/01/21 11:36: Bedside Glucose (Misc Panel) 126H 05/01/21 16:28: Bedside Glucose (Misc Panel) 236H 05/01/21 19:51: Bedside Glucose (Misc Panel) 295H 05/01/21 20:12: Vancomycin Level Trough 14.7 05/02/21 05:33: Bedside Glucose (Misc Panel) 192H Microbiology Microbiology 05/01/21 Wound Culture, Received Pending 04/30/21 Blood Culture - Preliminary, Resulted No growth after 24 hours . All specim... 04/30/21 Blood Culture - Preliminary, Resulted No growth after 24 hours . All specim... 04/30/21 Blood Culture - Preliminary, Resulted No growth after 24 hours . All specim... 04/30/21 Blood Culture - Preliminary, Resulted No growth after 24 hours . All specim... FIOR SHEPPARD M.D. May 02, 2021 11:34
[2021-05-02 14:00] VITALS: BP 135/56
[2021-05-02] MEDS: LATANOPROST 0.005% OPHTH SOLN 2.5 ML OU SCH (19:53)
[2021-05-02] MEDS: ATORVASTATIN 20 MG TAB PO SCH (19:54)
[2021-05-02 22:24] LABS: HEMOGLOBIN A1c 8.1 %
[2021-05-02 22:42] VITALS: BP 121/62
[2021-05-03] MEDS: VANCOMYCIN HCL 1,000 MG, VIAL MATE ADAPTER 1 EACH in NS 250 ML IV SCH ×3 (03:37→17:14)
[2021-05-03 06:00] VITALS: BP 122/62
[2021-05-03] MEDS: SALMETEROL DISKUS 50MCG INHALER (SEREVENT) INH SCH ×2 (07:37→20:44)
[2021-05-03 08:03] LABS: MEAN CORPUSCULAR HGB CONC 30.8 g/dl (32.0-36.5); MEAN CORPUSCULAR VOLUME 81.3 fl (80.0-96.0); PLATELET COUNT, AUTOMATED 192 10^3/uL (150-450); WHITE BLOOD COUNT 4.9 10^3/uL (4.0-10.0)
[2021-05-03 08:20] LABS: BLOOD UREA NITROGEN 18 MG/DL (7-18); CALCIUM LEVEL 8.9 MG/DL (8.8-10.2); CARBON DIOXIDE LEVEL 31 MEQ/L (21-32); CHLORIDE LEVEL 101 MEQ/L (98-107); GLOMERULAR FILTRATION RATE > 60.0 (>49); GLUCOSE, FASTING 208 MG/DL (70-100); MAGNESIUM LEVEL 1.6 MG/DL (1.8-2.4); POTASSIUM SERUM 4.2 MEQ/L (3.5-5.1); SODIUM LEVEL 137 MEQ/L (136-145)
[2021-05-03] MEDS: HumaLOG INSULIN (NovoLOG) PER UNIT SC SCH ×4 (09:18→20:45)
[2021-05-03] MEDS: LEVEMIR (INSULIN DETEMIR) 1 UNITS/0.01ML SC SCH ×2 (09:19→20:46)
[2021-05-03] MEDS: ASPIRIN 81MG ENTERIC TABLET PO SCH (09:19)
[2021-05-03] MEDS: PANTOPRAZOLE 40MG TAB (PROTONIX) PO SCH (09:19)
[2021-05-03] MEDS: METOPROLOL SUCC *XL* 25MG TAB (TopROL *XL*) PO SCH (09:20)
[2021-05-03] MEDS: GABAPENTIN 300 MG CAP PO SCH ×3 (09:20→20:44)
[2021-05-03] MEDS: DULoxetine 30MG CAPSULE (CYMBALTA) PO SCH (09:20)
[2021-05-03] MEDS: APIXABAN 5 MG TAB (ELIQUIS) PO SCH ×2 (09:20→20:45)
[2021-05-03] MEDS: MUPIROCIN 2% OINT 22 GM TUBE TOP SCH ×2 (09:22→23:05)
[2021-05-03] MEDS ORDERED: MAGNESIUM OXIDE 400MG TAB (MAG-OX) PO ONE (14:15)
--- NOTE | 2021-05-03 14:47 | IPNPDOC ---
Subjective Date Seen The patient was seen on 05/03/21. Subjective Chief Complaint/HPI Patient was seen and examined at bedside this morning. He had no new complaints. He was explained that we are waiting for wound cultures to come back so he can be placed on appropriate antibiotics. Objective Physical Examination Other physical findings General: Lying in bed, no acute distress Head/Neck/Throat: Trachea midline, mucous membranes moist Eyes: Sclera anicteric, no erythema or discharge appreciated bilaterally Thorax: Normal respiratory effort on room air, lungs clear to auscultation bilaterally, no wheezes/rales/rhonchi Cardiovascular: Normal rate, regular rhythm, normal S1, S2; no S3, S4, rubs/gallops/murmurs Abdomen: Bowel sounds present, soft/nontender/nondistended Genitourinary: No CVA tenderness, no Wu in place Musculoskeletal: Moving all extremities, no edema Skin: Left leg/foot - 1st toe is amputated. Lesion of the 5th toe, no discharge appreciated. There is maceration of the left calf, no erythema or discharge appreciated. Wound appears clean. Right foot - medial aspect of the foot there is bony protuberance with an open draining ulcer. Erythema and induration has has improved admission. Neurologic: AAOx3, speech fluent and goal-directed, no focal deficits, grossly intact Assessment /Plan Assessment #Right foot cellulitis -X-ray consistent with cellulitis. Continue with vancomycin. Blood cultures negative thus far. Neuro antibiotics based on wound cultures. -Status post bedside debridement by podiatry. -MRI to rule out osteo #Chronic wound of left leg -Dr. Powers evaluated left leg wound today and no acute interventions required at this time. Recommended a CT angiogram done of distal aorta bilaterally with runoff to the ankles to ensure patency of vessels. #Insulin-dependent diabetes mellitus -Increase basal regimen to 30 units twice daily for better control. Sliding scale, Accu-Cheks, and hypoglycemic protocol. #HFpEF -No signs of acute exacerbation. #COPD -Continue ambulatory DuoNebs #Paroxysmal atrial fibrillation -Presently was in sinus rhythm. Continue with metoprolol. He is on Eliquis 2.5 mg twice daily. #GERD -Continue with pantoprazole #DVT prophylaxis -Offered by apixaban. Plan/VTE VTE Prophylaxis Ordered?: Yes VS, I&O, 24H, Fishbone Vital Signs/I&O Vital Signs Date Time Temp Pulse Resp B/P (MAP) Pulse Ox O2 Delivery O2 Flow Rate FiO2 05/03/21 09:20 68 122/62 05/03/21 06:00 98.1 14 97 Room Air I&O- Last 24 Hours up to 6 AM 05/03/21 06:00 Intake Total 2470 ml Output Total 2900 ml Balance -430 ml Laboratory Data 24H LABS Laboratory Tests 2 05/02/21 16:32: Bedside Glucose (Misc Panel) 223H 05/02/21 19:36: Bedside Glucose (Misc Panel) 220H 05/02/21 21:56: Estimated Mean Plasma Glucose 186H, Hemoglobin A1c 8.1 05/03/21 07:08: Nucleated Red Blood Cells % (auto) 0.0, Anion Gap 5L, Glomerular Filtration Rate > 60.0, Calcium Level 8.9, Phosphorus Level 3.0, Magnesium Level 1.6L 05/03/21 07:14: Bedside Glucose (Misc Panel) 222H 05/03/21 11:24: Vancomycin Level Trough 22.9H 05/03/21 11:37: Bedside Glucose (Misc Panel) 212H CBC/BMP Laboratory Tests 05/03/21 07:08 Microbiology Microbiology 05/01/21 Wound Culture, Received Pending 04/30/21 Blood Culture - Preliminary, Resulted No Growth after 48 hours. All Specime... 04/30/21 Blood Culture - Preliminary, Resulted No Growth after 48 hours. All Specime... 04/30/21 Blood Culture - Preliminary, Resulted No Growth after 48 hours. All Specime... 04/30/21 Blood Culture - Preliminary, Resulted No Growth after 48 hours. All Specime... FIOR SHEPPARD M.D. May 03, 2021 14:47
[2021-05-03] MEDS ORDERED: ISOVUE-370 76% 100ML VIAL As Ordered ONE (14:51)
--- NOTE | 2021-05-03 16:15 | REP ---
INDICATION: DISTAL AORTA BILATERAL RUNOFF TO ANKLES COMPARISON: 11/21/2019, 01/14/2016. TECHNIQUE: CT angiogram of the abdomen and pelvis, as well as bilateral lower extremities, was performed with intravenous administration of 100 cc of Isovue 370, without oral contrast. 3D MIP reconstruction images performed. FINDINGS: Abdominal aorta: No aneurysm or dissection. There is moderate atherosclerotic calcification of the abdominal aorta. Celiac artery demonstrates mild narrowing. There is no stenosis. The superior mesenteric artery is mildly narrowed with no stenosis. There is mild narrowing of both main renal arteries with no significant stenosis. The inferior mesenteric artery is patent. There is moderate diffuse plaque of the right common iliac artery. There is a stent extending from the distal right common iliac artery through the mid aspect of the right external iliac artery, which is patent with internal flow. Mild narrowing of the right common femoral artery. There is mild to moderate diffuse narrowing of the right superficial femoral artery with no discrete stenosis. There is a stent of the distal aspect of the right superficial femoral artery extending into the popliteal artery, with internal patent flow. There is mild to moderate diffuse narrowing of the distal right popliteal artery. There is patent flow in very small calf arteries. The peroneal artery may terminate just above the ankle, with at least 2 vessel flow into the right foot. The left common iliac artery demonstrates no stenosis. There is a patent stent in the distal left common iliac artery extending into the distal left external iliac artery. Left common femoral artery is mildly narrowed. Left superficial femoral artery demonstrates mild to moderate diffuse narrowing with no focal stenosis. There is a patent stent of the mid left superficial femoral artery. There is mild to moderate diffuse narrowing of the left popliteal artery. The trifurcation vessels in the upper left calf are patent. There is three-vessel runoff into the left foot. Lung bases: Unremarkable. Liver: Normal Gallbladder: Unremarkable. Spleen: Normal. Adrenals: Normal. Pancreas: Normal. Kidneys: There is 1.5 cm cyst in the upper pole the left kidney. There is no hydronephrosis bilaterally.. Small and large bowel: Unremarkable. Free fluid: None. Adenopathy: There is an enlarged left external iliac lymph node measuring 1.8 cm in short axis dimension. There is an enlarged right inguinal lymph node measuring 1.5 cm in short axis dimension.. Appendix: Not inflamed. Pelvis: No mass. Osseous structures: There are moderate arthritic changes of the right hip and severe arthritic changes of the left hip. There diffuse degenerative changes of the spine without compression deformity.. IMPRESSION: Moderate diffuse atherosclerotic disease. Patent stents are visualized in the bilateral lower extremity arterial structures, with mild to moderate diffuse narrowing but no focal stenosis. Enlarged left external iliac lymph node and right inguinal lymph node. These are essentially stable compared to 11/21/2019 exam. <Electronically signed by Luther Meza > 05/03/21 [id number]
--- NOTE | 2021-05-03 17:00 | CR ---
WOUND CARE TELEMEDICINE CONSULTATION DATE: 05/03/2021 REQUESTING PHYSICIAN: Dr. Vasquez REASON FOR CONSULTATION: Lower extremity wound care recommendations. Wound care telemedicine provides a visual assessment of a wound or wounds without the benefit of physical examination. It can assist with establishing a diagnosis and etiology. This allows for an initial treatment plan. As wounds often change, it may be necessary to modify the original care. Our recommendation is periodic wound reassessment to monitor treatment. Failure to comply may result in nonhealing of the wound, possible complications and/or a poor outcome. The recommendations given will serve as treatment options. As I will not be following this patient, this care plan will require the attending physician to give and sign the orders. Upon discharge, outpatient follow-up can be scheduled at our [facility]. HISTORY OF PRESENT ILLNESS: A 65-year-old diabetic male poorly controlled, has been treated over the last five years for bilateral lower extremity diabetic foot ulcers and advanced peripheral vascular disease. Patient was vague about his recent problems but indicated that he has been hospitalized and/or in a rehabilitation hospital for over a year regarding a right foot wound associated with a previous fracture. PHYSICAL EXAMINATION: Left posterior calf shows a wound measuring 14.0 cm x 6.0 cm with a wound depth of 0.2 cm. The wound base shows granulation tissue. The wound edges are attached and the mary-wound shows no erythema, maceration or ischemic change. The right foot has been treated by Dr. Romano of podiatry. There is an open wound in the medial midfoot portion of the right foot measuring 3.0 cm x 2.5 cm with a wound depth of 0.6 cm. It is difficult to ascertain but by history there is exposed bone present. Patient is on Vancomycin. Patient's GFR is greater than 60 indicating satisfactory renal function. Patient's blood glucose has fluctuated but is in the low 200s. TREATMENT RECOMMENDATIONS: Clean wounds with Vashe Wound Cleanser. The left posterior calf should be dressed with a foam dressing secured with a Kerlix or Adam and changed on an every other day basis. Discontinue the Optilock. The right foot is being treated with Hydrofera Blue Classic, first cleansed with Vashe, the Classic is then applied after moistening and covered with an extra absorb dressing, again secured with a Kerlix or a Adam. Additional recommendations: Improve glycemic control and prior to discharge the patient should have a distal aorta, bilateral run-off vascular evaluation, CT angio. This is important because the patient has a history of angioplasty in the past and with lower extremity wounds, again being diabetic, it is important to establish his arterial flow. The patient has been a frequent treated patient in the past at our [facility] and follow-up can be arranged. MEEK
[2021-05-03] MEDS: LATANOPROST 0.005% OPHTH SOLN 2.5 ML OU SCH (20:44)
[2021-05-03] MEDS: ATORVASTATIN 20 MG TAB PO SCH (20:45)
[2021-05-03 22:00] VITALS: BP 131/68
[2021-05-04] MEDS: VANCOMYCIN HCL 1,000 MG, VIAL MATE ADAPTER 1 EACH in NS 250 ML IV SCH (04:35)
[2021-05-04 06:00] VITALS: BP 125/63
[2021-05-04 06:03] LABS: HEMATOCRIT 39.2 % (42.0-52.0); HEMOGLOBIN 12.1 g/dl (13.5-17.5); MEAN CORPUSCULAR HEMOGLOBIN 24.9 pg (27.0-33.0); MEAN CORPUSCULAR HGB CONC 30.9 g/dl (32.0-36.5); MEAN CORPUSCULAR VOLUME 80.8 fl (80.0-96.0); PLATELET COUNT, AUTOMATED 188 10^3/uL (150-450); RED BLOOD COUNT 4.85 10^6/uL (4.30-6.10)
[2021-05-04 06:26] LABS: ERYTHROCYTE SEDIMENTATION RATE 29 mm/hr (0-20)
[2021-05-04 06:29] LABS: BLOOD UREA NITROGEN 23 MG/DL (7-18); CALCIUM LEVEL 8.7 MG/DL (8.8-10.2); CARBON DIOXIDE LEVEL 31 MEQ/L (21-32); CHLORIDE LEVEL 100 MEQ/L (98-107); CREATININE FOR GFR 1.11 MG/DL (0.70-1.30); GLOMERULAR FILTRATION RATE > 60.0 (>49); GLUCOSE, FASTING 229 MG/DL (70-100); MAGNESIUM LEVEL 1.5 MG/DL (1.8-2.4); PHOSPHORUS LEVEL 3.2 MG/DL (2.5-4.9); POTASSIUM SERUM 4.2 MEQ/L (3.5-5.1); SODIUM LEVEL 135 MEQ/L (136-145)
[2021-05-04] MEDS: SALMETEROL DISKUS 50MCG INHALER (SEREVENT) INH SCH (08:54)
[2021-05-04] MEDS: ASPIRIN 81MG ENTERIC TABLET PO SCH (08:54)
[2021-05-04] MEDS: HumaLOG INSULIN (NovoLOG) PER UNIT SC SCH ×2 (08:54→12:15)
[2021-05-04] MEDS: GABAPENTIN 300 MG CAP PO SCH (08:55)
[2021-05-04] MEDS: DULoxetine 30MG CAPSULE (CYMBALTA) PO SCH (08:55)
[2021-05-04] MEDS: PANTOPRAZOLE 40MG TAB (PROTONIX) PO SCH (08:55)
[2021-05-04] MEDS: MUPIROCIN 2% OINT 22 GM TUBE TOP SCH (08:55)
[2021-05-04] MEDS: APIXABAN 5 MG TAB (ELIQUIS) PO SCH (08:55)
[2021-05-04] MEDS: LEVEMIR (INSULIN DETEMIR) 1 UNITS/0.01ML SC SCH (08:55)
[2021-05-04] MEDS: fentaNYL 50 MCG/HR PATCH TD SCH (08:56)
[2021-05-04 09:00] VITALS: BP 119/69
[2021-05-04] MEDS ORDERED: cefTRIAXone SOD 1 GM in D5W MINI-BAG PLUS 50 ML IV SCH (09:00)
[2021-05-04] MEDS: METOPROLOL SUCC *XL* 25MG TAB (TopROL *XL*) PO SCH (09:00)
[2021-05-04] MEDS ORDERED: INSUDET SC (12:18)
[2021-05-04] MEDS ORDERED: SM A10CA PO (12:20)
[2021-05-04] MEDS ORDERED: CEFD1CAP8 PO (12:20)
[2021-05-05] MEDS ORDERED: cefTRIAXone SOD 2 GM in D5W MINI-BAG PLUS 50 ML IV SCH (09:00)
== END 2021-05-04 14:00 | disposition home or self-care (01) | DRG 623 ==
LOC: M ED 15:56 → M ED INP 18:18 → M MS5PR 05-01 01:16
PROVIDERS: ADMIT Internal Medicine; ATTEND Internal Medicine Nephrology
PROC: 0JBQ0ZZ Excision of Right Foot Subcutaneous Tissue and Fascia, Open Approach (ICD-10-PCS; principal; 2021-05-02)
DX: E11.621 Type 2 diabetes mellitus with foot ulcer (principal); L03.115 Cellulitis of right lower limb; L97.919 Non-pressure chronic ulcer of unspecified part of right lower leg with unspecified severity; I50.32 Chronic diastolic (congestive) heart failure; E11.51 Type 2 diabetes mellitus with diabetic peripheral angiopathy without gangrene; F17.210 Nicotine dependence, cigarettes, uncomplicated; J44.9 Chronic obstructive pulmonary disease, unspecified; Z79.4 Long term (current) use of insulin; I48.0 Paroxysmal atrial fibrillation; K21.9 Gastro-esophageal reflux disease without esophagitis; Z79.899 Other long term (current) drug therapy; Z79.82 Long term (current) use of aspirin; G47.33 Obstructive sleep apnea (adult) (pediatric); I25.10 Atherosclerotic heart disease of native coronary artery without angina pectoris; Z95.2 Presence of prosthetic heart valve